=== PATIENT | male | born 1950 | race Caucasian/White ===

== ENCOUNTER 2023-03-10 14:29 | Outpatient (REF) | payer MEDICARE, OTHER, SELFPAY ==
[2023-03-10 16:24] LABS: Appearance Urine Cloudy (Clear); Bilirubin Urine 1+ (Negative); Blood Urine 3+ (Negative); Color Urine Red (Yellow); Glucose Urine Negative (Negative); Ketones Urine Trace (Negative); Leukocyte Esterase Urine 3+ (Negative); Nitrite Urine Positive (Negative); Protein Urine 3+ (Negative); Specific Gravity Urine 1.015 (1.000-1.030); pH Urine 5.5 (5.0-8.5)
[2023-03-10 16:46] LABS: Bacteria Urine Few; RBC Urine >100 (0-2); Squamous Epithelial Cell Urine Few (None-Few); WBC Urine 50-100 (0-5)
== END 2023-03-10 14:30 | disposition home or self-care (01) ==
LOC: NPINS 14:29
PROVIDERS: Visit Provider Nurse Practitioner Gerontology
DX: N39.0 Urinary tract infection, site not specified (principal)
CPT/HCPCS: 81001; 87086

== ENCOUNTER 2023-07-27 12:00 | Outpatient (REF) | payer MEDICARE, SELFPAY ==
[2023-07-27 11:26] LABS: Appearance Urine Cloudy (Clear); Bilirubin Urine Negative (Negative); Blood Urine Trace-intact (Negative); Color Urine Yellow (Yellow); Glucose Urine Negative (Negative); Ketones Urine Negative (Negative); Leukocyte Esterase Urine 3+ (Negative); Nitrite Urine Positive (Negative); Protein Urine Negative (Negative); Specific Gravity Urine 1.015 (1.000-1.030); Urobilinogen Urine 0.2 (0.2-1.0); pH Urine 6.5 (5.0-8.5)
[2023-07-27 11:36] LABS: Bacteria Urine Many; RBC Urine 0-2 (0-2); Squamous Epithelial Cell Urine Few (None-Few); WBC Urine >100 (0-5)
== END 2023-07-27 12:01 | disposition home or self-care (01) ==
LOC: NPINS 12:00
PROVIDERS: Visit Provider Nurse Practitioner Adult Health
DX: R10.2 Pelvic and perineal pain (principal); R82.90 Unspecified abnormal findings in urine; Z87.440 Personal history of urinary (tract) infections
CPT/HCPCS: 81001; 87086; 87186

== ENCOUNTER 2023-08-18 08:23 | Outpatient (REF) | payer MEDICARE, SELFPAY ==
[2023-08-18 09:14] LABS: SARS PCR* Negative SARS-CoV-2 (Negative)
[2023-08-18 11:56] LABS: PCR FLU A Negative PCR FLU A (Negative); PCR FLU B Negative PCR FLU B (Negative); PCR RSV POSITIVE PCR RSV (Negative)
== END 2023-08-18 08:24 | disposition home or self-care (01) ==
LOC: NPINS 08:23
PROVIDERS: PCP Family Medicine; Visit Provider Nurse Practitioner Adult Health
DX: R09.81 Nasal congestion (principal)
CPT/HCPCS: 87631; 87635

== ENCOUNTER 2023-12-09 14:59 | Outpatient (REF) | payer MEDICARE, SELFPAY ==
[2023-12-09 15:12] LABS: Appearance Urine Cloudy (Clear); Bilirubin Urine Negative (Negative); Blood Urine 2+ (Negative); Color Urine Yellow (Yellow); Glucose Urine Negative (Negative); Ketones Urine Negative (Negative); Leukocyte Esterase Urine 2+ (Negative); Nitrite Urine Negative (Negative); Protein Urine 1+ (Negative); Urobilinogen Urine 0.2 (0.2-1.0); pH Urine 5.5 (5.0-8.5)
[2023-12-09 15:28] LABS: WBC Urine >100 (0-5)
[2023-12-09 15:29] LABS: Bacteria Urine Many
== END 2023-12-09 15:00 | disposition home or self-care (01) ==
LOC: NPINS 14:59
PROVIDERS: PCP Family Medicine; Visit Provider Nurse Practitioner Gerontology
DX: N30.01 Acute cystitis with hematuria (principal)
CPT/HCPCS: 81001; 87086; 87186

== ENCOUNTER 2024-01-04 17:51 | Outpatient (REF) | payer MEDICARE, SELFPAY ==
[2024-01-04 18:09] LABS: Appearance Urine Clear (Clear); Bilirubin Urine Negative (Negative); Blood Urine Trace-intact (Negative); Color Urine Yellow (Yellow); Glucose Urine Negative (Negative); Ketones Urine Negative (Negative); Leukocyte Esterase Urine 1+ (Negative); Nitrite Urine Negative (Negative); Protein Urine 1+ (Negative); Urobilinogen Urine 0.2 (0.2-1.0)
[2024-01-04 18:28] LABS: RBC Urine 0-2 (0-2)
[2024-01-04 18:29] LABS: Bacteria Urine Few
== END 2024-01-04 17:52 | disposition home or self-care (01) ==
LOC: NPINS 17:51
PROVIDERS: PCP Family Medicine; Referring Provider Nurse Practitioner Gerontology; Visit Provider Nurse Practitioner Gerontology
DX: Z87.440 Personal history of urinary (tract) infections (principal)
CPT/HCPCS: 81001; 87086; 87186

== ENCOUNTER 2024-08-06 12:07 | Outpatient (REF) | payer MEDICARE, SELFPAY ==
[2024-08-06 12:52] LABS: Appearance Urine Slightly Cloudy (Clear); Bilirubin Urine Negative (Negative); Blood Urine 2+ (Negative); Glucose Urine Negative (Negative); Ketones Urine Negative (Negative); Leukocyte Esterase Urine Trace (Negative); Nitrite Urine Negative (Negative); Protein Urine 1+ (Negative); Urobilinogen Urine 0.2 (0.2-1.0); pH Urine 5.5 (5.0-8.5)
[2024-08-06 13:30] LABS: Bacteria Urine Few; Color Urine Yellow (Yellow); Mucus Urine Few; Squamous Epithelial Cell Urine Few (None-Few)
== END 2024-08-06 12:08 | disposition home or self-care (01) ==
LOC: NPINS 12:07
PROVIDERS: PCP Family Medicine; Visit Provider Nurse Practitioner Gerontology
DX: N39.0 Urinary tract infection, site not specified (principal)
CPT/HCPCS: 81001; 87086; 87186

== ENCOUNTER 2024-08-07 10:44 | Outpatient (CLI) | payer MEDICARE, SELFPAY | END 2024-08-07 10:45 | disposition home or self-care (01) | LOC: AMB 08-22 02:27 | PROVIDERS: PCP Family Medicine; Visit Provider Family Medicine | DX: R10.9 Unspecified abdominal pain (principal) | CPT/HCPCS: A0425; A0427 ==

== ENCOUNTER 2024-08-07 11:11 | Emergency (ER) | payer MEDICARE, SELFPAY ==
[2024-08-07] VITALS (27 sets, daily range): BP systolic 94–152; BP diastolic 46–82; PULSE 68–86; RESP 16–20; TEMP 36.3; O2SAT 80–100
--- NOTE | 2024-08-07 11:43 | CRLHL7_ITS ---
For Patients: As a result of the Century Cures Act, medical imaging exams and procedure reports are released immediately into your electronic medical record. You may view this report before your referring provider. If you have questions, please contact your health care provider. INDICATION: Clinical signs and symptoms of pulmonary embolus. Hypoxia. Pain. COMPARISON: There are no prior studies for comparison TECHNIQUE: : CT examination of the chest was performed with the uneventful intravenous administration of 95 cc of Isovue 370 while thin axial sections were obtained from above the apices of the lungs to the lung bases. The examination was timed as a pulmonary artery angiogram. Please note that all CT scans at this facility use dose modulation, iterative reconstruction, and/or weight-based dosing when appropriate to reduce radiation dose to as low as reasonably achievable. FINDINGS: : HEART and MEDIASTINUM: The heart size is normal. There is no mediastinal or hilar adenopathy or mass. There is no pericardial effusion.There is elevated right heart strain at 1.3. Greater than 0.9 is considered indicative of right heart strain PULMONARY ARTERIAL CIRCULATION: Moderate to large clot burden pulmonary embolus. This mainly involves the lower lobes. There is a central component on the left. No saddle component. LUNGS and PLEURAL SPACES: Basilar opacities probably due to atelectasis. No focal consolidation, infiltrate or mass. No pleural effusion or pneumothorax. VISUALIZED UPPER ABDOMEN: The limited visualized upper abdominal structures appear normal. There is a gallbladder abnormality visible on the abdomen and pelvis CT which is not visible on this portion of the study OSSEOUS STRUCTURES: Age-appropriate appearance. No acute fracture or destructive process. TUBES and LINES: None. I discussed the above findings with Dr. Wooten at 1:10 p.m. on August 07, 2024 IMPRESSION: 1. Moderate to large clot burden pulmonary embolus mainly involving the lower lobes. 2. Bibasilar atelectasis. No pleural effusion or pneumothorax. 3. Evidence of right heart strain. The RV/LV ratio is elevated at 1.3. A measurement of greater than 0.9 is generally considered indicative of right heart strain Please note that all CT scans at this facility use dose modulation, iterative reconstruction, and/or weight-based dosing when appropriate to reduce radiation dose to as low as reasonably achievable. Dictated by Akil Childers MD @ 08/07/2024 1:14:03 PM (Electronically Signed)
--- NOTE | 2024-08-07 11:43 | CRLHL7_ITS ---
For Patients: As a result of the 21st Century Cures Act, medical imaging exams and procedure reports are released immediately into your electronic medical record. You may view this report before your referring provider. If you have questions, please contact your health care provider. INDICATION: Pain COMPARISON: None of the abdomen and pelvis TECHNIQUE: CT examination of the abdomen and pelvis was performed following the uneventful intravenous administration of 95 cc of Isovue 3 7. Thin section axial images were obtained from the lung bases through the pubic symphysis. Oral contrast was not administered. Please note that all CT scans at this facility use dose modulation, iterative reconstruction, and/or weight-based dosing when appropriate to reduce radiation dose to as low as reasonably achievable. FINDINGS: LUNG BASES: Bibasilar atelectasis. Redemonstration of the basilar pulmonary emboli as noted on the contemporaneous chest report. LIVER/BILIARY SYSTEM:Fatty infiltrated liver. There is a non cystic lesion in the right lobe of the liver under the dome of the diaphragm measuring almost 6 centimeters. This is hyperdense and appears to have a peripheral area of enhancement. This may represent a hemangioma though is indeterminate on the current study. Follow-up evaluation by MRI is recommended. There is no biliary ductal dilation.There is significant gallbladder wall thickening and surrounding inflammatory change. No visible stones. The findings are likely due to acute cholecystitis. ADRENALS: Normal KIDNEYS, URETERS and BLADDER:Benign-appearing renal lesions on the right. Small hyperdense lesion in the midpole of the left kidney measuring 1.3 centimeters. This could represent a hyperdense cyst or a small neoplasm. This could also be evaluated at the time of MRI. SPLEEN:Normal appearance. PANCREAS: Appears normal. RETROPERITONEUM and MESENTERY: There is no mass, adenopathy or aortic aneurysm. Vascular calcification GASTROINTESTINAL SYSTEM: There is no evidence of diverticulitis, colitis, mechanical obstruction, or appendicitis. The small bowel as visualized appears normal. PELVIS: No mass, adenopathy or free fluid. OSSEOUS STRUCTURES and ABDOMINAL WALL: There is an age-appropriate appearance of the osseous structures.Small fat containing umbilical hernia OTHER: No free fluid or free air. IMPRESSION: 1. Lung base findings again noted consistent with the pulmonary embolus which was reported in the contemporaneous chest report. 2. Non cystic right lobe hepatic mass measuring 5.5 centimeters. This could represent a hemangioma though the imaging is indeterminate on this study. Follow-up evaluation by MRI is advised at a clinically appropriate time. 3. Distended gallbladder with gallbladder wall thickening, pericholecystic fluid and surrounding inflammatory change consistent with acute cholecystitis. No stones visible. No biliary ductal dilation. 4. Indeterminate lesion in the left kidney measuring 1.3 centimeters. Hyperdense cyst versus neoplasm. This can also be studied at the time of the above recommended MRI. 5. Other incidental nonacute appearing findings as discussed in the body of the report Please note that all CT scans at this facility use dose modulation, iterative reconstruction, and/or weight-based dosing when appropriate to reduce radiation dose to as low as reasonably achievable. Dictated by Akil Childers MD @ 08/07/2024 1:20:05 PM (Electronically Signed)
[2024-08-07 12:00] LABS: Appearance Urine Cloudy (Clear); Bilirubin Urine 1+ (Negative); Blood Urine 3+ (Negative); Color Urine Dark yellow (Yellow); Glucose Urine Negative (Negative); Ketones Urine Negative (Negative); Leukocyte Esterase Urine Trace (Negative); Nitrite Urine Positive (Negative); Protein Urine 2+ (Negative); Specific Gravity Urine 1.025 (1.000-1.030); pH Urine 5.5 (5.0-8.5)
[2024-08-07 12:08] LABS: HCO3 VBG 28 mmol/L (21-28); PCO2 VBG 45 mmHG (40-50); PO2 VBG 32.2 mmHG (25-47); pH VBG 7.4 (7.32-7.43)
[2024-08-07 12:09] LABS: Troponin, Point-of-Care* 0.02 ng/ml (0.01-0.04)
[2024-08-07 12:09] LABS: Creatinine, Point-of-Care* 1.5 mg/dl (0.6-1.3)
[2024-08-07 12:09] LABS: Lactate Sepsis w/Reflex* 1.6 mmol/L (0.5-1.9)
[2024-08-07 12:11] LABS: Basophils Percent Auto 0.1 % (0.0-3.0); Eosinophils Percent Auto 0.4 % (0.0-7.0); Immature Granulocytes Pct Auto 0.2 %; Mean Corpuscular HGB Conc 32 gm/dL (32-36); Mean Corpuscular Hemoglobin 28 pg (26-34); Mean Corpuscular Volume 89 fL (80-100); Monocytes Percent Auto 7.8 % (0.0-11.0); Neutrophils Percent Auto 84.5 % (42.0-72.0); Platelet Count* 178 K/uL (140-440); RDW Coefficient of Variation % 15.9 % (11.5-15.5); Red Blood Count 4.59 m/uL (4.30-5.90); White Blood Count* 18.47 K/uL (4.50-11.00)
[2024-08-07 12:15] LABS: PCR FLU A Negative PCR FLU A (Negative); PCR FLU B Negative PCR FLU B (Negative); PCR RSV Negative PCR RSV (Negative); SARS PCR* Negative SARS-CoV-2 (Negative)
[2024-08-07 12:19] LABS: Slide Review Reflex No
[2024-08-07 12:20] LABS: Albumin* 3.8 g/dL (3.3-5.0); Chloride* 102 mmol/L (96-114)
--- NOTE | 2024-08-07 12:20 | ED_ITS ---
HPI - General Adult General Date Seen: 08/07/24 Chief complaint: Abdominal Pain Stated complaint: Abdominal pain Time Seen by Provider: 08/07/24 11:13 History of Present Illness HPI narrative: Patient is a 74-year-old male with underlying MS, paraplegia, chronic indwelling catheter, resident of [facility]. Sent in today because of abdominal pain. He has not had a bowel movement reportedly for 3 or 4 days, he says that this is not significantly uncommon for him but usually he will have a bowel movement after about 3 days. He says he developed right lower quadrant pain yesterday after eating some pretzels, which has persisted. He denies nausea or vomiting. Has not had much of an appetite since then. He denies fevers. A UA was apparently done at [facility] yesterday, results unknown. He says that he has not had significant problems with UTI however. He denies prior abdominal surgeries. He was noted to be hypoxic on medics arrival, with O2 sats recorded at 80% on room air. He denies chronic oxygen needs, denies respiratory symptoms, chest pain, unusual leg swelling, prior DVT. Related Data Home Medications ?Medication ?Instructions ?Recorded ?Confirmed acetaminophen 500 mg tablet PO 08/07/24 aspirin 81 mg tablet,delayed 81 mg PO DAILY 08/07/24 08/07/24 release atorvastatin 40 mg tablet 40 mg PO DAILY 08/07/24 08/07/24 baclofen 20 mg tablet PO 08/07/24 calcium carbonate (Zachary-Gest 400 mg PO BID 08/07/24 08/07/24 Antacid) cholecalciferol (vitamin D3) 25 25 mcg PO DAILY 08/07/24 08/07/24 mcg (1,000 unit) tablet (Vitamin D3) clotrimazole 1 % topical cream applic topical 08/07/24 (Antifungal (clotrimazole)) furosemide 40 mg tablet PO 08/07/24 guaifenesin 600 mg tablet, mg PO 08/07/24 extended release 12 hr (Mucus Relief ER) lisinopril 40 mg tablet 40 mg PO DAILY 08/07/24 08/07/24 metoprolol succinate 100 mg 100 mg PO DAILY 08/07/24 08/07/24 tablet,extended release 24 hr nifedipine 90 mg tablet,extended 90 mg PO DAILY 08/07/24 08/07/24 release 24 hr pantoprazole 40 mg tablet,delayed 40 mg PO BID 08/07/24 08/07/24 release polyethylene glycol 3350 17 17 g PO DAILY 08/07/24 08/07/24 gram/dose oral powder potassium chloride 10 mEq 1 PO BID 08/07/24 capsule,extended release simethicone 80 mg chewable tablet 80 mg PO DAILY 08/07/24 08/07/24 (Gas Relief 80 (simethicone)) Allergies Allergy/AdvReac Type Severity Reaction Status Date / Time Haemophilus B polysaccharide Allergy Unknown Verified 08/07/24 14:59 conj w vancomycin Allergy Unknown Verified 08/07/24 14:59 Review of Systems Status of ROS: Reports: 10 or more systems reviewed and unremarkable except as noted in History and below PFSH [facility] Social History Smoking Status: Unknown if ever smoked Non-prescribed substance use: denies use Exam Narrative: Exam Narrative: Vital signs reviewed In general, alert, nontoxic elderly male. He was on oxygen at the time of my exam was breathing easily. Head: Normocephalic, atraumatic. Eyes: Sclera clear. Pupils equal and reactive. ENT: Mucous membranes moist. Neck: Supple without adenopathy. Heart: Regular rate and rhythm without murmur. Lungs: Clear anteriorly. No increased work of breathing. Abdomen: Soft, obese. He does seem to have some right lower quadrant tenderness with a little bit of guarding. Remainder the abdomen is nontender. No rigidity or rebound tenderness. Extremities: Legs are well perfused. He has compression stockings on, does not seem to have significant edema, no calf tenderness. Neurologic: Alert, conversant. Speech fluent, face symmetric. Skin: Warm, dry well perfused. Affect: Normal. Const: Vital Signs, click to edit/add: Vital Signs - 24 hr 08/07/24 11:13 08/07/24 11:43 08/07/24 12:09 Temperature 97.3 F L Pulse Rate 74 Pulse Rate [Pulse Oximeter] 76 Respiratory Rate 16 20 Blood Pressure 120/53 L Blood Pressure [Ri ght Upper Arm] 111/52 L Pulse Oximetry 80 L 92 93 Oxygen Delivery Me thod Room Air OxyMask OxyMask Oxygen Flow Rate 5 5 08/07/24 12:32 08/07/24 13:03 08/07/24 13:32 Temperature Pulse Rate 75 75 68 Pulse Rate [Pulse Oximeter] Respiratory Rate 20 Blood Pressure 122/54 L 112/51 L 123/59 L Blood Pressure [Ri ght Upper Arm] Pulse Oximetry 93 93 96 Oxygen Delivery Me thod OxyMask OxyMask OxyMask Oxygen Flow Rate 5 5 5 08/07/24 14:01 08/07/24 14:32 08/07/24 15:01 Temperature Pulse Rate 71 74 72 Pulse Rate [Pulse Oximeter] Respiratory Rate Blood Pressure 127/50 L 140/54 H 130/50 L Blood Pressure [Ri ght Upper Arm] Pulse Oximetry 95 95 95 Oxygen Delivery Me thod OxyMask OxyMask OxyMask Oxygen Flow Rate 5 5 5 08/07/24 15:32 08/07/24 16:02 08/07/24 16:32 Temperature Pulse Rate 75 73 72 Pulse Rate [Pulse Oximeter] Respiratory Rate Blood Pressure 119/49 L 94/47 L 94/67 Blood Pressure [Ri ght Upper Arm] Pulse Oximetry 95 94 95 Oxygen Delivery Me thod OxyMask OxyMask Oxygen Flow Rate 5 5 08/07/24 17:02 08/07/24 17:31 08/07/24 18:16 Temperature Pulse Rate 70 74 80 Pulse Rate [Pulse Oximeter] Respiratory Rate 20 20 Blood Pressure 112/46 L 115/52 L 107/57 L Blood Pressure [Ri ght Upper Arm] Pulse Oximetry 99 100 92 Oxygen Delivery Me thod OxyMask Oxygen Flow Rate 5 08/07/24 18:32 08/07/24 19:01 08/07/24 19:30 Temperature Pulse Rate 80 77 80 Pulse Rate [Pulse Oximeter] Respiratory Rate 20 Blood Pressure 123/57 L 125/48 L Blood Pressure [Ri ght Upper Arm] Pulse Oximetry 96 93 93 Oxygen Delivery Me thod OxyMask OxyMask OxyMask Oxygen Flow Rate 5 5 5 08/07/24 19:32 08/07/24 20:32 08/07/24 21:02 Temperature Pulse Rate Pulse Rate [Pulse Oximeter] Respiratory Rate Blood Pressure 136/80 130/76 148/82 H Blood Pressure [Ri ght Upper Arm] Pulse Oximetry Oxygen Delivery Me thod Oxygen Flow Rate 08/07/24 21:30 08/07/24 21:32 08/07/24 22:00 Temperature Pulse Rate 82 85 84 Pulse Rate [Pulse Oximeter] Respiratory Rate Blood Pressure 152/76 H Blood Pressure [Ri ght Upper Arm] Pulse Oximetry 93 94 91 Oxygen Delivery Me thod OxyMask OxyMask Nasal Cannula Oxygen Flow Rate 5 5 4 08/07/24 22:01 08/07/24 22:31 08/07/24 23:02 Temperature Pulse Rate 84 83 86 Pulse Rate [Pulse Oximeter] Respiratory Rate 20 18 Blood Pressure 126/56 L 118/55 L 127/66 Blood Pressure [Ri ght Upper Arm] Pulse Oximetry 91 92 92 Oxygen Delivery Me thod Nasal Cannula Nasal Cannula Nasal Cannula Oxygen Flow Rate 4 4 4 Course Course ED Course: Patient presents with abdominal pain, hypoxia of uncertain significance within absence of respiratory or other chest symptoms. Certainly at risk for PE with his paraplegia. I have ordered CT scans of the chest, abdomen pelvis. Diagnostic considerations in the chest would include pneumonia, pulmonary embolism, congestive heart failure, pleural effusion, viral infection among others. In the abdomen, he has right lower abdominal tenderness, seems relatively unlikely to be related to his hypoxia although pneumonia would remain a consideration. Other considerations are appendicitis, cholecystitis, pancreatitis, diverticulitis, bowel obstruction, ischemic bowel, UTI, pyelonephritis, kidney stone among others. He declines pain medication right now. Labs and urine pending as well. Labs notable for white blood cell count of 18.5, hemoglobin of 13. Normal melanie telets. Venous gas is normal, pH is 7.4. Metabolic panel unremarkable, BUN 20, creatinine 1.3, GFR of 58. Lactate is normal at 1.6. Liver functions are normal peer CRP is significant elevated at 35.5. BNP is equivocal at 605, lipase normal. Urinalysis shows positive nitrites, 5-10 red cells, 25-50 white blood cells. Many bacteria. Viral swab is negative. Point of care troponin is 0.02. An EKG done here showed a sinus rhythm, ventricular rate of 71. No evidence of S1 Q3 T3, no acute ST segment changes. Unremarkable T-waves. He went on to have CT scans of the chest, PE protocol, as well as CT of the abdomen and pelvis with contrast. By my review he has bilateral PE in the chest. Radiology read discussed initially on phone and then reviewed online. Moderate to large clot burden mainly involving the lower lobes, no pleural effusion normal pneumothorax, evidence of right heart strain with an RV to LV ratio of 1.3. In the abdomen, he has a lesion on the dome of the liver by my review, he has a dilated gallbladder with wall thickening and some pericholecystic stranding. I do not see any findings in the right lower quadrant. Finalread again discussed on the phone and then reviewed online cholecystitis without obvious gallstones, gallbladder wall thickening pericholecystic fluid and surrounding inflammatory change. No ductal dilation. Liver labs do not suggest choledocholithiasis. He has an indeterminate lesion on the left kidney hyperdense cyst versus neoplasm. He has this liver lesion that could be a hemangioma but imaging is indeterminate, MRI recommended when clinically appropriate. I discussed his case with the footwear sales representative at [place] in terms of anticoagulation for the pulmonary embolism. He has some high risk features but overall nothing pushing us to do thrombolysis, and in the setting of this unknown liver lesion, his recommendation was heparin at this time. This has been ordered. With regard to the cholecystitis, I discussed his care with our general surgeon. She said that he would be best served by going somewhere where a cystoscopy tube could be placed. We are making calls to try and find a bed somewhere for transfer. In the meantime, he has had Zosyn, 3.375 g IV. He remains hemodynamically stable, O2 sats low to mid 90s on 5 L OxyMask. Bilateral lower extremity Dopplers are pending at this time. Bilateral lower extremity Dopplers read by Radiology showing small volumes of clot in both calves. Patient has been hemodynamically stable. He remains on 5 L by OxyMask, O2 sats were somewhat higher but have drifted back down to 93% on 5 L so I have left him there. I was able to speak with the hospitalist at [facility], as well as the interventional radiologist there. They are able to take him for admission to their hospital. Case was discussed with General surgery as well by the call center but not by myself. They were unable to view images for some reason despite multiple attempts to send them. He remains on heparin drip. He was given his 1st dose of Zosyn at 4:00 p.m., 2nd dose will be ordered for 10:00 p.m. if he is still here. We are currently waiting bed placement at [facility]. I spoke with his daughter, Malika, phone number [phone] and have updated her on his status. Vital Signs Vital signs: Initial Vital Signs Temperature 97.3 F L 08/07/24 11:13 Temperature Source Temporal Artery Scan 08/07/24 11:13 Pulse Rate 76 08/07/24 11:13 Respiratory Rate 16 08/07/24 11:13 Blood Pressure 111/52 L 08/07/24 11:13 Blood Pressure Mean 71 08/07/24 11:13 Blood Pressure Position Supine 08/07/24 11:13 Pulse Oximetry 80 L 08/07/24 11:13 Oxygen Delivery Method Room Air 08/07/24 11:13 Vital Signs Temperature 97.3 F L 08/07/24 11:13 Pulse Rate 76 08/07/24 11:13 Respiratory Rate 16 08/07/24 11:13 Blood Pressure 111/52 L 08/07/24 11:13 Pulse Oximetry 80 L 08/07/24 11:13 Oxygen Delivery Method Room Air 08/07/24 11:13 Temperature 97.3 F L 08/07/24 11:13 Pulse Rate 86 08/07/24 23:02 Respiratory Rate 18 08/07/24 23:02 Blood Pressure 127/66 08/07/24 23:02 Pulse Oximetry 92 08/07/24 23:02 Oxygen Delivery Method Nasal Cannula 08/07/24 23:02 Oxygen Flow Rate 4 08/07/24 23:02 Medications Administered Medications: Generic Name Dose Route Start Last Admin Trade Name Freq PRN Reason Stop Dose Admin Heparin Sodium/Dextrose 25,000 unit in 500 mls @ 0 mls/hr 08/07/24 14:00 08/07/24 21:59 Heparin IV 1,250 unit/hr .Q0M BERONICA 25 mls/hr Titration Protocol Per Protocol Piperacillin Sod/Tazobactam 100 mls @ 100 mls/hr 08/07/24 22:57 08/07/24 23:05 Sod 3.375 gm/ Sodium Chloride IVPB 08/07/24 22:58 100 mls/hr ONCE ONE Administration Discontinued Medications Generic Name Dose Route Start Last Admin Trade Name Freq PRN Reason Stop Dose Admin Heparin Sodium (Porcine) 9,500 unit 08/07/24 13:52 08/07/24 14:10 Heparin 5,000 Unit/0.5 Ml Inj 80 unit/kg (9500 unit) 08/07/24 13:53 9,500 unit IVP Administration ONCE ONE Piperacillin Sod/Tazobactam 100 mls @ 100 mls/hr 08/07/24 14:01 08/07/24 16:00 Sod 3.375 gm/ Sodium Chloride IVPB 08/07/24 14:02 Infused ONCE ONE Infusion Medical Decision Making Lab Data Labs: Lab Results 08/07/24 08/07/24 08/07/24 Range/Units 11:25 11:30 11:45 WBC 18.47 H (4.50-11.00) K/uL RBC 4.59 (4.30-5.90) m/uL Hgb 13.0 L (13.5-17.5) gm/dL Hct 41.0 (37.0-53.0) % MCV 89 (80-100) fL MCH 28 (26-34) pg MCHC 32 (32-36) gm/dL RDW Coeff of Rey 15.9 H (11.5-15.5) % Plt Count 178 (140-440) K/uL Neut % (Auto) 84.5 H (42.0-72.0) % Lymph % (Auto) 7.0 L (20-44) % Williams % (Auto) 7.8 (0.0-11.0) % Eos % (Auto) 0.4 (0.0-7.0) % Baso % (Auto) 0.1 (0.0-3.0) % Neut # (Auto) 15.60 H (1.7-7.0) K/uL Lymph # (Auto) 1.30 (0.90-2.90) K/uL Williams # (Auto) 1.40 H (0.00-0.90) K/UL Eos # (Auto) 0.10 (0.00-0.50) K/uL Baso # (Auto) 0.00 (0.00-0.30) K/uL Abs Immat Gran (auto) 0.00 (0.00-0.30) K/uL Imm/Tot Granulo (auto) 0.2 % INR 1.09 (0.91-1.10) APTT 43 H (23-33) Seconds VBG pH 7.4 (7.32-7.43) VBG pCO2 45 (40-50) mmHG VBG pO2 32.2 (25-47) mmHG VBG HCO3 28 (21-28) mmol/L Sodium 136 (135-149) mmol/L Potassium 4.5 (3.6-5.1) mmol/L Chloride 102 (96-114) mmol/L Carbon Dioxide 29 (20-32) mmol/L Anion Gap 5 L (7-15) mEq/L BUN 20 (7-30) mg/dL Creatinine 1.3 (0.5-1.5) mg/dL Estimated GFR 58 ml/min Glucose 158 H (60-115) mg/dL Lactate 1.6 (0.5-1.9) mmol/L Calcium 9.0 (8.4-10.6) mg/dL Total Bilirubin 1.1 (0.1-1.5) mg/dL Direct Bilirubin 0.5 (0.0-0.5) mg/dL AST 23 (12-35) U/L ALT 23 (4-50) U/L Alkaline Phosphatase 100 (40-150) U/L C-Reactive Protein 35.5 H (0.5-1.0) mg/dL NT-Pro-B Natriuret Pep 605 pg/mL Total Protein 6.7 (6.0-8.3) g/dL Albumin 3.8 (3.3-5.0) g/dL Lipase 29 (23-300) U/L Urine Color (Yellow) Urine Appearance (Clear) Urine pH (5.0-8.5) Ur Specific Wharton (1.000-1.030) Urine Protein (Negative) Urine Glucose (UA) (Negative) Urine Ketones (Negative) Urine Blood (Negative) Urine Nitrite (Negative) Urine Bilirubin (Negative) Urine Urobilinogen (0.2-1.0) Ur Leukocyte Esterase (Negative) Urine RBC (0-2) Urine WBC (0-5) Urine WBC Clumps (None) Ur Squamous Epith Cells (None-Few) Urine Bacteria (None) SARS-CoV-2 (PCR) Negative SARS-CoV-2 (Negative) Influenza Type A (PCR) Negative PCR FLU A (Negative) Influenza Type B (PCR) Negative PCR FLU B (Negative) RSV (PCR) Negative PCR RSV (Negative) POC Creatinine (0.6-1.3) mg/dl POC Troponin I 0.02 (0.01-0.04) ng/ml 08/07/24 08/07/24 08/07/24 Range/Units 11:53 20:05 Unknown WBC (4.50-11.00) K/uL RBC (4.30-5.90) m/uL Hgb (13.5-17.5) gm/dL Hct (37.0-53.0) % MCV (80-100) fL MCH (26-34) pg MCHC (32-36) gm/dL RDW Coeff of Rey (11.5-15.5) % Plt Count (140-440) K/uL Neut % (Auto) (42.0-72.0) % Lymph % (Auto) (20-44) % Williams % (Auto) (0.0-11.0) % Eos % (Auto) (0.0-7.0) % Baso % (Auto) (0.0-3.0) % Neut # (Auto) (1.7-7.0) K/uL Lymph # (Auto) (0.90-2.90) K/uL Williams # (Auto) (0.00-0.90) K/UL Eos # (Auto) (0.00-0.50) K/uL Baso # (Auto) (0.00-0.30) K/uL Abs Immat Gran (auto) (0.00-0.30) K/uL Imm/Tot Granulo (auto) % INR (0.91-1.10) APTT 83 H (23-33) Seconds VBG pH (7.32-7.43) VBG pCO2 (40-50) mmHG VBG pO2 (25-47) mmHG VBG HCO3 (21-28) mmol/L Sodium (135-149) mmol/L Potassium (3.6-5.1) mmol/L Chloride (96-114) mmol/L Carbon Dioxide (20-32) mmol/L Anion Gap (7-15) mEq/L BUN (7-30) mg/dL Creatinine (0.5-1.5) mg/dL Estimated GFR ml/min Glucose (60-115) mg/dL Lactate (0.5-1.9) mmol/L Calcium (8.4-10.6) mg/dL Total Bilirubin (0.1-1.5) mg/dL Direct Bilirubin (0.0-0.5) mg/dL AST (12-35) U/L ALT (4-50) U/L Alkaline Phosphatase (40-150) U/L C-Reactive Protein (0.5-1.0) mg/dL NT-Pro-B Natriuret Pep pg/mL Total Protein (6.0-8.3) g/dL Albumin (3.3-5.0) g/dL Lipase (23-300) U/L Urine Color Dark yellow (Yellow) Urine Appearance Cloudy A (Clear) Urine pH 5.5 (5.0-8.5) Ur Specific Wharton 1.025 (1.000-1.030) Urine Protein 2+ A (Negative) Urine Glucose (UA) Negative (Negative) Urine Ketones Negative (Negative) Urine Blood 3+ A (Negative) Urine Nitrite Positive A (Negative) Urine Bilirubin 1+ A (Negative) Urine Urobilinogen 1.0 (0.2-1.0) Ur Leukocyte Esterase Trace A (Negative) Urine RBC 5-10 A (0-2) Urine WBC 25-50 A (0-5) Urine WBC Clumps Moderate A (None) Ur Squamous Epith Cells Few (None-Few) Urine Bacteria Many A (None) SARS-CoV-2 (PCR) (Negative) Influenza Type A (PCR) (Negative) Influenza Type B (PCR) (Negative) RSV (PCR) (Negative) POC Creatinine 1.5 H (0.6-1.3) mg/dl POC Troponin I (0.01-0.04) ng/ml Imaging Data CT scan - chest: Attestation: I have reviewed the pertinent imaging results. Radiologist's impression: Patient: WILFREDO HE Facility: [facility] Site . Site : 1950 Study: CT-Chest Angio W/ [facility] ISOVUE-370 PE PROTOCOL-08/07/2024 12:58:23 PM Ordering Physician: Sugar Simmons Final Report: INDICATION: Clinical signs and symptoms of pulmonary embolus. Hypoxia. Pain. COMPARISON: There are no prior studies for comparison TECHNIQUE: : CT examination of the chest was performed with the uneventful intravenous administration of 95 cc of Isovue 370 while thin axial sections were obtained from above the apices of the lungs to the lung bases. The examination was timed as a pulmonary artery angiogram. Please note that all CT scans at this facility use dose modulation, iterative reconstruction, and/or weight-based dosing when appropriate to reduce radiation dose to as low as reasonably achievable. FINDINGS: : HEART and MEDIASTINUM: The heart size is normal. There is no mediastinal or hilar adenopathy or mass. There is no pericardial effusion.There is elevated right heart strain at 1.3. Greater than 0.9 is considered indicative of right heart strain PULMONARY ARTERIAL CIRCULATION: Moderate to large clot burden pulmonary embolus. This mainly involves the lower lobes. There is a central component on the left. No saddle component. LUNGS and PLEURAL SPACES: Basilar opacities probably due to atelectasis. No focal consolidation, infiltrate or mass. No pleural effusion or pneumothorax. VISUALIZED UPPER ABDOMEN: The limited visualized upper abdominal structures appear normal. There is a gallbladder abnormality visible on the abdomen and pelvis CT which is not visible on this portion of the study OSSEOUS STRUCTURES: Age-appropriate appearance. No acute fracture or destructive process. TUBES and LINES: None. I discussed the above findings with Dr. Acotsa at 1:10 p.m. on August 07, 2024 IMPRESSION: 1. Moderate to large clot burden pulmonary embolus mainly involving the lower lobes. 2. Bibasilar atelectasis. No pleural effusion or pneumothorax. 3. Evidence of right heart strain. The RV/LV ratio is elevated at 1.3. A measurement of greater than 0.9 is generally considered indicative of right heart strain Please note that all CT scans at this facility use dose modulation, iterative reconstruction, and/or weight-based dosing when appropriate to reduce radiation dose to as low as reasonably achievable. CT scan - abdomen: Attestation: I have reviewed the pertinent imaging results. Radiologist's impression: Patient: WILFREDO HE Facility: [facility] . Site : 1950 Study: CT-Abdomen/Pelvis W/ 95CC [id number] 1:02:08 PM Ordering Physician: Block Iris Final Report: INDICATION: Pain COMPARISON: None of the abdomen and pelvis TECHNIQUE: CT examination of the abdomen and pelvis was performed following the uneventful intravenous administration of 95 cc of Isovue 3 7. Thin section axial images were obtained from the lung bases through the pubic symphysis. Oral contrast was not administered. Please note that all CT scans at this facility use dose modulation, iterative reconstruction, and/or weight-based dosing when appropriate to reduce radiation dose to as low as reasonably achievable. FINDINGS: LUNG BASES: Bibasilar atelectasis. Redemonstration of the basilar pulmonary emboli as noted on the contemporaneous chest report. LIVER/BILIARY SYSTEM:Fatty infiltrated liver. There is a non cystic lesion in the right lobe of the liver under the dome of the diaphragm measuring almost 6 centimeters. This is hyperdense and appears to have a peripheral area of enhancement. This may represent a hemangioma though is indeterminate on the current study. Follow-up evaluation by MRI is recommended. There is no biliary ductal dilation.There is significant gallbladder wall thickening and surrounding inflammatory change. No visible stones. The findings are likely due to acute cholecystitis. ADRENALS: Normal KIDNEYS, URETERS and BLADDER:Benign-appearing renal lesions on the right. Small hyperdense lesion in the midpole of the left kidney measuring 1.3 centimeters. This could represent a hyperdense cyst or a small neoplasm. This could also be evaluated at the time of MRI. SPLEEN:Normal appearance. PANCREAS: Appears normal. RETROPERITONEUM and MESENTERY: There is no mass, adenopathy or aortic aneurysm. Vascular calcification GASTROINTESTINAL SYSTEM: There is no evidence of diverticulitis, colitis, mechanical obstruction, or appendicitis. The small bowel as visualized appears normal. PELVIS: No mass, adenopathy or free fluid. OSSEOUS STRUCTURES and ABDOMINAL WALL: There is an age-appropriate appearance of the osseous structures.Small fat containing umbilical hernia OTHER: No free fluid or free air. IMPRESSION: 1. Lung base findings again noted consistent with the pulmonary embolus which was reported in the contemporaneous chest report. 2. Non cystic right lobe hepatic mass measuring 5.5 centimeters. This could represent a hemangioma though the imaging is indeterminate on this study. Follow-up evaluation by MRI is advised at a clinically appropriate time. 3. Distended gallbladder with gallbladder wall thickening, pericholecystic fluid and surrounding inflammatory change consistent with acute cholecystitis. No stones visible. No biliary ductal dilation. 4. Indeterminate lesion in the left kidney measuring 1.3 centimeters. Hyperdense cyst versus neoplasm. This can also be studied at the time of the above recommended MRI. 5. Other incidental nonacute appearing findings as discussed in the body of the report Please note that all CT scans at this facility use dose modulation, iterative reconstruction, and/or weight-based dosing when appropriate to reduce radiation dose to as low as reasonably achievable. Dictated by Akil Childers MD @ 08/07/2024 1:20:05 PM Venous US: Attestation: I have reviewed the pertinent imaging results. Radiologist's impression: Patient: Wilfredo He MR#: [id number] : 1950 Acct:[id number] Loc: ED Service Date: 08/07/[address]: Ordering Physician: Iris Acosta M.D. Date of Service: 08/07/24 Procedure(s): US venous LE BI Accession Number(s): [id number] cc: Iris Acosta M.D.; Bijan Crawford M.D.~ For Patients: As a result of the Cures Act, medical imaging exams and procedure reports are released immediately into your electronic medical record. You may view this report before your referring provider. If you have questions, please contact your health care provider. INDICATION: Pulmonary emboli. TECHNIQUE: : Ultrasound venous duplex lower extremity bilateral. Compression venous exam was performed using moeller-scale, color Doppler, and spectral Doppler imaging. COMPARISON: None. FINDINGS: Deep venous thrombosis are present in 1 of 2 paired posterior tibial veins in the right calf and 1 of 2 peroneal veins in the left calf. Proximally both popliteal, femoral, deep femoral and common femoral veins are patent as are both greater saphenous veins. IMPRESSION: Bilateral calf DVT in the right posterior and left peroneal veins Findings called to and discussed with Dr. Iris acosta at 14:55. Dictated by Jorge Deluna MD @ 08/07/2024 2:57:06 PM Discharge Plan Discharge Clinical Impression: Bilateral pulmonary embolism, DVT of lower extremity, bilateral, Acute cholecystitis, Lesion of liver Patient Disposition: Xfer Other Prescriptions: No Action furosemide 40 mg tablet PO atorvastatin 40 mg tablet 40 mg PO DAILY potassium chloride 10 mEq capsule, extended release 1 PO BID metoprolol succinate 100 mg tablet extended release 24 hr 100 mg PO DAILY aspirin 81 mg tablet,delayed release (DR/EC) 81 mg PO DAILY acetaminophen 500 mg tablet PO baclofen 20 mg tablet PO nifedipine 90 mg tablet extended release 24hr 90 mg PO DAILY pantoprazole 40 mg tablet,delayed release (DR/EC) 40 mg PO BID calcium carbonate [Zachary-Gest Antacid] 200 mg calcium (500 mg) tablet,chewable 400 mg PO BID polyethylene glycol 3350 17 gram/dose powder 17 g PO DAILY lisinopril 40 mg tablet 40 mg PO DAILY clotrimazole [Antifungal (clotrimazole)] 1 % cream topical simethicone [Gas Relief 80 (simethicone)] 80 mg tablet,chewable 80 mg PO DAILY cholecalciferol (vitamin D3) [Vitamin D3] 25 mcg (1,000 unit) tablet 25 mcg PO DAILY guaifenesin [Mucus Relief ER] 600 mg tablet extended release 12hr PO Stand Alone Forms: [facility] Info Instructions
[2024-08-07 12:21] LABS: Potassium* 4.5 mmol/L (3.6-5.1); Sodium* 136 mmol/L (135-149)
[2024-08-07 12:21] LABS: Bacteria Urine Many; Squamous Epithelial Cell Urine Few (None-Few); WBC Urine 25-50 (0-5)
[2024-08-07 12:22] LABS: WBC Clumps Urine Moderate
[2024-08-07 12:23] LABS: Creatinine* 1.3 mg/dL (0.5-1.5); Estimated Glomerular Filt Rate 58 ml/min
[2024-08-07 12:24] LABS: Alanine Aminotransferase* 23 U/L (4-50); Alkaline Phosphatase* 100 U/L (40-150); Anion Gap 5 mEq/L (7-15); Aspartate Amino Transferase* 23 U/L (12-35); Bilirubin Direct* 0.5 mg/dL (0.0-0.5); Bilirubin Total* 1.1 mg/dL (0.1-1.5); Blood Urea Nitrogen* 20 mg/dL (7-30); Carbon Dioxide* 29 mmol/L (20-32); Glucose* 158 mg/dL (60-115); Lipase* 29 U/L (23-300); Total Protein* 6.7 g/dL (6.0-8.3)
[2024-08-07 12:35] LABS: NT Pro B Type NatriureticPept* 605 pg/mL
--- NOTE | 2024-08-07 12:55 | RESP.RT ---
Asked to see pt for oxygenation concerns. PT slightly hypoxic. With disease process he does not have good inhalation. With his current pain he is unable to take a deep breath. He is not short of breath. He says he can not tell any difference with oxygen on. BBS very diminished in bases, clear in upper lobes. Has a CPAP which he wears at will, no regularity .
[2024-08-07 13:00] LABS: C Reactive Protein* 35.5 mg/dL (0.5-1.0)
--- NOTE | 2024-08-07 13:29 | CRLHL7_ITS ---
For Patients: As a result of the Century Cures Act, medical imaging exams and procedure reports are released immediately into your electronic medical record. You may view this report before your referring provider. If you have questions, please contact your health care provider. INDICATION: Pulmonary emboli. TECHNIQUE: : Ultrasound venous duplex lower extremity bilateral. Compression venous exam was performed using moeller-scale, color Doppler, and spectral Doppler imaging. COMPARISON: None. FINDINGS: Deep venous thrombosis are present in 1 of 2 paired posterior tibial veins in the right calf and 1 of 2 peroneal veins in the left calf. Proximally both popliteal, femoral, deep femoral and common femoral veins are patent as are both greater saphenous veins. IMPRESSION: Bilateral calf DVT in the right posterior and left peroneal veins Findings called to and discussed with Dr. Iris acosta at 14:55. Dictated by Jorge Deluna MD @ 08/07/2024 2:57:06 PM (Electronically Signed)
[2024-08-07] MEDS: HEPARIN 5,000 UNIT/0.5 ML INJ 9500 UNIT IVP (14:10)
[2024-08-07] MEDS: HEPARIN 25,000 UNIT/500 ML BAG 30 UNIT IV (14:12)
[2024-08-07 14:23] LABS: INR 1.09 (0.91-1.10); Prothrombin Time 14.8 Seconds
[2024-08-07 14:24] LABS: Partial Thromboplastin Time* 43 Seconds (23-33)
[2024-08-07] MEDS: PIPERACILLIN/TAZOBACTAM 3.375 GM in 0.9 % SODIUM CHLORIDE Mini-bag 100 ML IVPB ×2 (15:09→23:05)
[2024-08-07 20:47] LABS: Partial Thromboplastin Time* 83 Seconds (23-33)
== END 2024-08-07 23:22 | disposition other institution (70) ==
PROVIDERS: Emergency Provider Emergency Medicine; PCP Family Medicine
DX: I26.99 Other pulmonary embolism without acute cor pulmonale (principal); I82.403 Acute embolism and thrombosis of unspecified deep veins of lower extremity, bilateral; K81.0 Acute cholecystitis
CPT/HCPCS: 36415; 71275; 74177; 80048; 80076; 81001; 82565; 82803; 83605; 83690; 83880; 84484; 85025; 85027; 85610; 85730; 86140; 87086; 87186; 87631; 93005; 93970; 96365; 96366; 99285; 99291; A0425; A0434; J1644; J2543; Q9967

== ENCOUNTER 2024-08-20 10:53 | Outpatient (CLI) | payer MEDICARE, SELFPAY | END 2024-08-20 10:54 | disposition home or self-care (01) | LOC: AMB 09-03 04:29 | PROVIDERS: PCP Family Medicine; Visit Provider Emergency Medicine | DX: R41.82 Altered mental status, unspecified (principal); R53.1 Weakness | CPT/HCPCS: A0425; A0427 ==

== ENCOUNTER 2024-08-20 11:18 | Emergency (ER) | payer MEDICARE, SELFPAY ==
[2024-08-20] VITALS (18 sets, daily range): BP systolic 128–146; BP diastolic 57–63; PULSE 60–68; RESP 20; TEMP 36.6; O2SAT 93–96
--- NOTE | 2024-08-20 11:46 | ED.GENADULT ---
HPI - General Adult General Time Seen by Provider: 11:46 Date Seen: 08/20/24 Chief complaint: Extremity Pain/Injury, Upper Stated complaint: Weakness Time Seen by Provider: 08/20/24 11:40 Source: patient, EMS and RN notes reviewed Mode of arrival: EMS Limitations: no limitations History of Present Illness HPI narrative: This 74-year-old male is sent by the [facility] for concern of right wrist pain. He was reported to not want to be using his right hand today, nursing staff became concerned of a stroke. Patient states he could not use his right hand because it hurt to do so. He could not hold his coffee cup during breakfast because of pain in his wrist. He has not noted fevers. The right wrist swelling and pain seem to have cropped up overnight. He denies trauma but does note that he had multiple IV starts in this hand when he was in the hospital at [place]. He currently has an indwelling Eason catheter, has a cholecystostomy tube. He denies any numbness tingling. Patient has had a significant complex history, did review multiple outside records. He was diagnosed with bilateral pulmonary emboli and DVTs here on August 07 his C reactive protein was 35.5. There were concerns for acute cholecystitis on his images. He ended up being transferred to [place]. We have looked through his records, he was to be on outpatient Keflex, he was supposed to be on Eliquis. We do not see Eliquis on his current medication reconciliation from them. Both nursing staff and myself have looked through records. Patient notes no current fevers, no abdominal pain. No lower extremity pain. He does not think he has ever had gout or pseudogout. Related Data Home Medications ?Medication ?Instructions ?Recorded ?Confirmed acetaminophen 500 mg tablet PO 08/07/24 aspirin 81 mg tablet,delayed 81 mg PO DAILY 08/07/24 08/07/24 release atorvastatin 40 mg tablet 40 mg PO DAILY 08/07/24 08/07/24 baclofen 20 mg tablet PO 08/07/24 calcium carbonate (Zachary-Gest 400 mg PO BID 08/07/24 08/07/24 Antacid) cholecalciferol (vitamin D3) 25 25 mcg PO DAILY 08/07/24 08/07/24 mcg (1,000 unit) tablet (Vitamin D3) clotrimazole 1 % topical cream applic topical 08/07/24 (Antifungal (clotrimazole)) furosemide 40 mg tablet PO 08/07/24 guaifenesin 600 mg tablet, mg PO 08/07/24 extended release 12 hr (Mucus Relief ER) lisinopril 40 mg tablet 40 mg PO DAILY 08/07/24 08/07/24 metoprolol succinate 100 mg 100 mg PO DAILY 08/07/24 08/07/24 tablet,extended release 24 hr nifedipine 90 mg tablet,extended 90 mg PO DAILY 08/07/24 08/07/24 release 24 hr pantoprazole 40 mg tablet,delayed 40 mg PO BID 08/07/24 08/07/24 release polyethylene glycol 3350 17 17 g PO DAILY 08/07/24 08/07/24 gram/dose oral powder potassium chloride 10 mEq 1 PO BID 08/07/24 capsule,extended release simethicone 80 mg chewable tablet 80 mg PO DAILY 08/07/24 08/07/24 (Gas Relief 80 (simethicone)) Allergies Allergy/AdvReac Type Severity Reaction Status Date / Time Haemophilus B polysaccharide Allergy Unknown Verified 08/07/24 14:59 conj w vancomycin Allergy Unknown Verified 08/07/24 14:59 Review of Systems Status of ROS: Reports: 6 or more systems reviewed and unremarkable except as noted in History and below PFSH PFS Social History Smoking Status: Former smoker What tobacco products do you use: cigarettes Smoking quit date/years: <= 15 years ago Do you use any of these nicotine containing products: None Second hand tobacco smoke exposure: No How often do you have a drink containing alcohol: never AUDIT-C Alcohol total score: 0 Non-prescribed substance use: denies use service: No Exam Const: Vital Signs, click to edit/add: Vital Signs - 24 hr 08/20/24 11:32 08/20/24 12:01 08/20/24 12:02 Temperature 97.8 F Pulse Rate 66 65 Pulse Rate [Pulse Oximeter] 64 Respiratory Rate 20 Blood Pressure 128/57 L Blood Pressure [Ri ght Upper Arm] 130/60 Pulse Oximetry 96 93 93 Oxygen Delivery Me thod Room Air 08/20/24 12:15 08/20/24 12:19 Temperature Pulse Rate 68 64 Pulse Rate [Pulse Oximeter] Respiratory Rate Blood Pressure Blood Pressure [Ri ght Upper Arm] Pulse Oximetry 94 94 Oxygen Delivery Me thod Wilfredo is alert, interactive, no apparent distress. Sclera clear, symmetrical facial function. Lungs are clear, breathing easily on room air, no wheezing or crackles. CV regular rate and rhythm, do not hear any murmur, normal S1-S2, no S3-S4. His cholecystostomy tube site looks clean dry intact, no erythema outside of the bandages, bandages were not removed. Abdomen is obese but soft, nontender, nondistended. He has below the knee compression stockings on both legs, no underlying edema. He has significant erythema and swelling along the distal radius into the wrist, do feel swelling and erythema over the dorsum of the wrist. Any range of motion of the wrist is painful. There is some swelling at the wrist. Distal sensation of his fingers on this hand or normal. He can mobilize his fingers but any range of motion of the wrist is painful. Documenting provider has reviewed patient's vital signs: yes Course Course ED Course: This is a 74-year-old male with increased right wrist pain seemingly overnight, it is erythematous and swollen. I actually have no concerns about stroke pathology, he states it was hard to uses hand because it hurt to use it. He has got swollen erythematous wrist. He is not febrile. With his recent history do need to consider septic arthritis but do wonder more about inflammatory arthritis like gout. He states he does not have a history of gout or pseudogout. We have contacted the longterm as I did not see acute use of Eliquis on his current medication reconciliation. They did confirm that he did get the 10 mg of Eliquis up to yesterday morning. There was a problem with the 5 mg not being transcribed, did not get 5 mg last night or today. Will get an ultrasound of this arm to make sure it is not a DVT as well but do suspect inflammatory arthritis. Will get full complement of labs, do venous ultrasound as well as x-ray this wrist. Reevaluation(s) Time of Reevaluation #1: 12:52 Reevaluation #1: Per patient observation assistant, patient is negative for DVT. She did want me to know that she does find him potentially confused. She did ultrasound him about 2 weeks ago, talked him about having DVTs in his legs. He states he has not been diagnosed with this, does not believe he has ever had ultrasound of his lower extremities. I am going to do noncontrast head CT just to elucidate any major intracranial pathology, he has been on anticoagulants, want to make sure that there is no subtle subdural or brain bleed. Time of Reevaluation #2: 13:56 Reevaluation #2: Reviewed with patient that is possibly he has gout or pseudogout. His uric acid is elevated, there is chondrocalcinosis seen on his x-ray imaging which could point to either or both of these etiologies. We discussed that this is basically crystalline deposition in the wrist. Ice, relative immobilization might help. He had an acute kidney injury while he was in the hospital, need to be mindful in careful of nephrotoxic agents. Likewise, he may have complications of prednisone systemically given he has a cholecystostomy tube for acute cholecystitis. In his treatment, have considered options. He recently had acute kidney injury, this would make NSAIDs relatively contraindicated. Would be a bit worried about colchicine with his recent liver issues although liver enzymes are normal today. This is possibly pseudogout as well with chondrocalcinosis. Do think that steroids may be our best option which possibly could increase risk of his infection but feel we need to do something to help alleviate his symptoms. Have asked Orthopedics to consider wrist injection but patient is on Eliquis, did give him a dose here, only missed 24 hours. Time of Reevaluation #3: 14:28 Reevaluation #3: Have conferred with Orthopedics, agree with intra-articular joint injection. Dr. Potter did kindly assist and help with the injection. Patient was consented on intra-articular right wrist injection. Skin was prepped with Betadine sterilely. 40 mg of Depo-Medrol was placed into the joint space easily. Patient tolerated the procedure well. Vital Signs Vital signs: Initial Vital Signs Temperature 97.8 F 08/20/24 11:32 Temperature Source Temporal Artery Scan 08/20/24 11:32 Pulse Rate 64 08/20/24 11:32 Pulse Rhythm Regular 08/20/24 11:32 Respiratory Rate 20 08/20/24 11:32 Blood Pressure 130/60 08/20/24 11:32 Blood Pressure Mean 83 08/20/24 11:32 Pulse Oximetry 96 08/20/24 11:32 Oxygen Delivery Method Room Air 08/20/24 11:32 Vital Signs Temperature 97.8 F 08/20/24 11:32 Pulse Rate 64 08/20/24 11:32 Respiratory Rate 20 08/20/24 11:32 Blood Pressure 130/60 08/20/24 11:32 Pulse Oximetry 96 08/20/24 11:32 Oxygen Delivery Method Room Air 08/20/24 11:32 Temperature 97.8 F 08/20/24 11:32 Pulse Rate 64 08/20/24 12:19 Respiratory Rate 20 08/20/24 11:32 Blood Pressure 128/57 L 08/20/24 12:01 Pulse Oximetry 94 08/20/24 12:19 Oxygen Delivery Method Room Air 08/20/24 11:32 Medications Administered Medications: Discontinued Medications Generic Name Dose Route Start Last Admin Trade Name Freq PRN Reason Stop Dose Admin Apixaban 5 mg 08/20/24 12:42 08/20/24 13:17 Apixaban 5 Mg Tablet PO 08/20/24 12:43 5 mg ONCE ONE Administration Medical Decision Making Lab Data Lab results reviewed: Yes I reviewed the patient's lab results Labs: Lab Results 08/20/24 Range/Units 11:59 WBC 10.03 (4.50-11.00) K/uL RBC 4.41 (4.30-5.90) m/uL Hgb 12.1 L (13.5-17.5) gm/dL Hct 38.4 (37.0-53.0) % MCV 87 (80-100) fL MCH 27 (26-34) pg MCHC 32 (32-36) gm/dL RDW Coeff of Rey 15.8 H (11.5-15.5) % Plt Count 180 (140-440) K/uL Neut % (Auto) 70.7 (42.0-72.0) % Lymph % (Auto) 15.7 L (20-44) % [place] % (Auto) 9.1 (0.0-11.0) % Eos % (Auto) 3.8 (0.0-7.0) % Baso % (Auto) 0.1 (0.0-3.0) % Neut # (Auto) 7.10 H (1.7-7.0) K/uL Lymph # (Auto) 1.60 (0.90-2.90) K/uL [place] # (Auto) 0.90 (0.00-0.90) K/UL Eos # (Auto) 0.38 (0.00-0.50) K/uL Baso # (Auto) 0.01 (0.00-0.30) K/uL Abs Immat Gran (auto) 0.06 (0.00-0.30) K/uL Imm/Tot Granulo (auto) 0.6 % D-Dimer Quant (PE/DVT) 1.52 H (0.00-0.50) ug/ml Sodium 139 (135-149) mmol/L Potassium 4.8 (3.6-5.1) mmol/L Chloride 108 (96-114) mmol/L Carbon Dioxide 22 (20-32) mmol/L Anion Gap 9 (7-15) mEq/L BUN 28 (7-30) mg/dL Creatinine 0.9 (0.5-1.5) mg/dL Estimated GFR 90 ml/min Glucose 168 H (60-115) mg/dL Lactate 1.4 (0.5-1.9) mmol/L Uric Acid 9.2 H (2.2-8.4) mg/dL Calcium 9.4 (8.4-10.6) mg/dL Total Bilirubin 0.4 (0.1-1.5) mg/dL AST 28 (12-35) U/L ALT 29 (4-50) U/L Alkaline Phosphatase 110 (40-150) U/L C-Reactive Protein 4.9 H (0.5-1.0) mg/dL Total Protein 7.0 (6.0-8.3) g/dL Albumin 3.6 (3.3-5.0) g/dL Imaging Data CT scan - head: Attestation: I have reviewed the pertinent imaging results. Radiologist's impression: Patient: WILFREDO HE Facility:?[facility] Patient ID:?[id number] Site Patient ID:?[id number] Site :?[id number] Study:?CT-Head WITHOUT-08/20/2024 1:13:54 PM Ordering Physician:Sugar Sánchez Final Report: TECHNIQUE: Multiplanar CT examination of the head was performed without the use of intravenous contrast. INDICATION: Altered mental status. COMPARISON: None. FINDINGS: No loss of moeller-white differentiation to suggest recent territorial infarct. No intracranial hemorrhage, abnormal extra-axial fluid collection, hydrocephalus or midline shift. The ventricles and cerebral sulci are prominent caliber, compatible with mild generalized parenchymal volume loss. Nurse patchy hypoattenuation of the supratentorial white matter diffusely nonspecific but consistent with severe chronic microvascular ischemic changes. The basal cisterns are patent. The paranasal sinuses and mastoid air cells remain clear. The orbits and calvarium are unremarkable. The cerebellar tonsils are normal position. IMPRESSION: 1. No acute intracranial findings. 2. Mild generalized parenchymal volume loss with severe chronic microvascular ischemic changes. Please note that all CT scans at this facility use dose modulation, iterative reconstruction, and/or weight-based dosing when appropriate to reduce radiation dose to as low as reasonably achievable. Dictated by Armando Fitzpatrick MD @ 08/20/2024 1:22:44 PM (Electronic Signature) Venous US: Attestation: I have reviewed the pertinent imaging results. Radiologist's impression: Patient: WILFREDO HE Facility:?[facility] Patient ID:?[id number] Site Patient ID:?[id number]. Site :?[id number] Study:?US-Extremity Right US UEV RIGHT-08/20/2024 12:52:10 PM Ordering Physician:Sugar Sánchez Final Report: INDICATION: Pain and swelling with recent DVT/PE COMPARISON: None. TECHNIQUE: Sonographic evaluation of the right upper extremity deep veins was performed utilizing moeller-scale and color/spectral Doppler imaging techniques. FINDINGS: Visualized right internal jugular vein is patent. Visualized right brachiocephalic vein is patent. Right subclavian vein is patent. Patent right axillary vein, brachial vein, basilic vein, cephalic vein, radial vein, and ulnar vein. IMPRESSION: No deep venous thrombosis detected in the right upper extremity. Dictated by Pedro Madrigal MD @ 08/20/2024 12:56:00 PM (Electronic Signature) XR right wrist: Attestation: I have reviewed the pertinent imaging results. My impression: Patient: WILFREDO HE Facility:?[facility] Patient ID:?[id number] Site Patient ID:?[id number]. Site :?[id number] Study:?XRay-Extremity Right WRIST 3V-08/20/2024 1:15:17 PM Ordering Physician:Sugar Sánchez Final Report: INDICATION: Pain, swelling COMPARISON: None. TECHNIQUE: Three radiographic view(s) of the right wrist. FINDINGS: No evident acute displaced fracture. Slight negative ulnar variance. There is chondrocalcinosis of the wrist. The joint spaces of the wrist are grossly preserved. IMPRESSION: 1. No evident acute displaced fracture. 2. Chondrocalcinosis. 3. Slight negative ulnar variance. Dictated by Pedro Madrigal MD @ 08/20/2024 1:24:12 PM (Electronic Signature) Discharge Plan Discharge Clinical Impression: Acute pain of right wrist Patient Disposition: Home w/ Parent or Adult Condition: Stable Instructions: Gout (ED) Additional Instructions: The uric acid was elevated and the x-ray did show chondrocalcinosis; this could be indicative of gout or pseudogout. Either way, the wrist was injected with 40 mg of Depo-Medrol and will treat either of these conditions. Use ice to the wrist, can use some Joseph wrap for compression as needed for comfort. Tylenol 1000 mg 3 times a day for pain management baseline. Hopefully the steroid will start to take effect. Patient does need to be on Eliquis 5 mg twice daily, he was given a dose in the ER tonight, needs to start on the Eliquis tonight at the longterm. Complete the Keflex per hospital discharge recommendations. If there are further concerns with this risk, concerns of secondary infection or not improving, please seek re-evaluation. Activity Level: Activity as Tolerated Prescriptions: No Action furosemide 40 mg tablet PO atorvastatin 40 mg tablet 40 mg PO DAILY potassium chloride 10 mEq capsule, extended release 1 PO BID metoprolol succinate 100 mg tablet extended release 24 hr 100 mg PO DAILY aspirin 81 mg tablet,delayed release (DR/EC) 81 mg PO DAILY acetaminophen 500 mg tablet PO baclofen 20 mg tablet PO nifedipine 90 mg tablet extended release 24hr 90 mg PO DAILY pantoprazole 40 mg tablet,delayed release (DR/EC) 40 mg PO BID calcium carbonate [Zachary-Gest Antacid] 200 mg calcium (500 mg) tablet,chewable 400 mg PO BID polyethylene glycol 3350 17 gram/dose powder 17 g PO DAILY lisinopril 40 mg tablet 40 mg PO DAILY clotrimazole [Antifungal (clotrimazole)] 1 % cream topical simethicone [Gas Relief 80 (simethicone)] 80 mg tablet,chewable 80 mg PO DAILY cholecalciferol (vitamin D3) [Vitamin D3] 25 mcg (1,000 unit) tablet 25 mcg PO DAILY guaifenesin [Mucus Relief ER] 600 mg tablet extended release 12hr PO Follow Up/Referrals: Bijan Crawford MD [Primary Care Provider] - Stand Alone Forms: [facility] Info Instructions
[2024-08-20 12:18] LABS: Lactate* 1.4 mmol/L (0.5-1.9)
[2024-08-20 12:19] LABS: Basophils Absolute Auto 0.01 K/uL (0.00-0.30); Basophils Percent Auto 0.1 % (0.0-3.0); Eosinophils Absolute Auto 0.38 K/uL (0.00-0.50); Eosinophils Percent Auto 3.8 % (0.0-7.0); Hematocrit 38.4 % (37.0-53.0); Hemoglobin* 12.1 gm/dL (13.5-17.5); Immature Granulocytes Abs Auto 0.06 K/uL (0.00-0.30); Immature Granulocytes Pct Auto 0.6 %; Lymphocytes Percent Auto 15.7 % (20-44); Mean Corpuscular HGB Conc 32 gm/dL (32-36); Mean Corpuscular Hemoglobin 27 pg (26-34); Mean Corpuscular Volume 87 fL (80-100); Monocytes Percent Auto 9.1 % (0.0-11.0); Neutrophils Percent Auto 70.7 % (42.0-72.0); Platelet Count* 180 K/uL (140-440); RDW Coefficient of Variation % 15.8 % (11.5-15.5); Red Blood Count 4.41 m/uL (4.30-5.90); White Blood Count* 10.03 K/uL (4.50-11.00)
[2024-08-20 12:21] LABS: Slide Review Reflex No
[2024-08-20 13:00] LABS: Albumin* 3.6 g/dL (3.3-5.0); Chloride* 108 mmol/L (96-114)
[2024-08-20 13:01] LABS: Potassium* 4.8 mmol/L (3.6-5.1); Sodium* 139 mmol/L (135-149)
[2024-08-20 13:03] LABS: Bilirubin Total* 0.4 mg/dL (0.1-1.5); Creatinine* 0.9 mg/dL (0.5-1.5); Estimated Glomerular Filt Rate 90 ml/min
[2024-08-20 13:04] LABS: Alanine Aminotransferase* 29 U/L (4-50); Alkaline Phosphatase* 110 U/L (40-150); Anion Gap 9 mEq/L (7-15); Aspartate Amino Transferase* 28 U/L (12-35); Blood Urea Nitrogen* 28 mg/dL (7-30); Calcium* 9.4 mg/dL (8.4-10.6); Carbon Dioxide* 22 mmol/L (20-32); D Dimer Quantitative* 1.52 ug/ml (0.00-0.50); Glucose* 168 mg/dL (60-115); Uric Acid* 9.2 mg/dL (2.2-8.4)
[2024-08-20 13:07] LABS: C Reactive Protein* 4.9 mg/dL (0.5-1.0)
[2024-08-20] MEDS: APIXABAN 5 MG TABLET PO (13:17)
--- OUTSIDE RECORDS SUMMARY | 2024-08-21 13:59 | XMS_ITS | Encounter Summary ---
Author Organization [facility] Address [address] [place] [address] Care Team Providers Care Numerical Control Drill Press Operator Name Role Phone Jeff Reyes M.D. Primary Care Provider [phone] Reason for Visit * Reason Onset Date Comments Post Hospital Follow-up 08/20/2024 Encounter Details Date Type Department Care Team (Latest Contact Info) Description 08/20/2024 Clinical Communication Department of Family Medicine, [facility], in [place], [place] [address] [place] [address] Asia Bartholomew, RAmparoNAmparo [address] [place] [address] Post Hospital Follow-up Social History Tobacco Use Types Packs/Day Years Used Date Smoking Tobacco: Former Cigarettes Q uit: 1977 Passive Smoke Exposure: Never Alcohol Use Standard Drinks/Week Comments Not Currently 1 (1 standard drink = 0.6 oz pur e alcohol) [facility] Utilities Answer Date Recorded In the past 12 months has e electric, gas, oil, or water company threatened to shut off services in your home? No 08/08/2024 Humiliation, Afraid, Rape, and Kick questionnair e Answer Date Recorded Within the last year, have y ou been afraid of your partner or ex-partner? No 08/08/2024 Within the last year, have y ou been humiliated or emotionally abused in other ways by your partner or ex-partner? No Within the last year, have y ou been kicked, hit, slapped, or otherwise physically hurt by your partner or ex-partner? No 08/08/2024 Within the last year, have y ou been raped or forced to have any kind of sexual activity by your partner or ex-partner? No 08/08/2024 Social Connection and Isolat ion Panel [NHANES] Answer Date Recorded In a typical week, how many times do you talk on the phone with family, friends, or neighbors? More than three times a week 10/18/2022 How often do you get togethe r with friends or relatives? Three times a week 10/18/2022 How often do you attend chur ch or yarsani services? Never 10/18/2022 Do you belong to any clubs o r organizations such as taoist groups, unions, fraternal or athletic groups, or school groups? No 10/18/2022 How often do you attend meet ings of the clubs or organizations you belong to? More than 4 times per year 10/18/2022 Are you , , di vorced, , never , or living with a partner? 10/18/2022 AUDIT-C Answer Date Recorded Q1: How often do you have a drink containing alcohol? Monthly or less 10/18/2022 Q2: How many drinks containi ng alcohol do you have on a typical day when you are drinking? Patient does not drink Q3: How often do you have si x or more drinks on one occasion? Never 10/18/2022 Overall Financial Resource Strain (CARDIA) Answe r Date Recorded How hard is it for you to pa y for the very basics like food, housing, medical care, and heating? Somewhat hard 12/22/2022 PHQ-2 Answer Date Recorded PHQ-2 Score 0 02/07/2024 [facility] of Occupat ional Health - Occupational Stress Questionnaire Answer Date Recorded Do you feel stress - tense, restless, nervous, or anxious, or unable to sleep at night because your mind is troubled all the time - these days? Only a little 10/18/2022 Exercise Vital Sign Answer Date Recorde d On average, how many days pe r week do you engage in moderate to strenuous exercise (like a brisk walk)? 4 days 10/18/2022 On average, how many minutes do you engage in exercise at this level? 30 min 10/18/2022 Hunger Vital Sign Answer Date Recorded Within the past 12 months, y ou worried that your food would run out before you got the money to buy more. Never true 08/08/19 25 Within the past 12 months, t he food you bought just didn't last and you didn't have money to get more. Never true 08/08/2024 PRAPARE - Transportation Answer Date Re corded In the past 12 months, has l ack of transportation kept you from medical appointments or from getting medications? No 07/24 In the past 12 months, has l ack of transportation kept you from meetings, work, or from getting things needed for daily living? No 08/08/2024 Nutrition Answer Date Recorded On average, how many serving s of fruits and vegetables do you eat per day (serving size is equal to 1 cup or approximately the size of a tennis ball)? 2-3 10/18/2022 Dental Answer Date Recorded Dental: Regular Dentist Yes 10/19/19 Employment Answer Date Recorded Employment status Permanently disabled Housing Stability Answer Date Recorded What is your living situation today? I have a [facility] place to live 08/08/2024 Education Answer Date Recorded What is the highest level of school you have completed or the highest degree you have received? 12th grade 10/18/2022 Sex and Gender Information Value Date Recorded Sex Assigned at Male 06/26/2018 4:20 PM SWEAT BAND SEPARATOR Legal Sex Male 3:33 AM SWEAT BAND SEPARATOR Gender Identity Not on file Sexual Orientation Not on file documented as of this encounter Plan of Treatment Upcoming Encounters Date Type Department Care Team (Latest Contact Info) Description 09/04/2024 10:45 AM SWEAT BAND SEPARATOR Comprehensive Visit Department of General Surgery in [place], [place] [address] [place] [address] Roland Benson D.O. [address] [place] [phone] Discharge Disposition: Home or Self Care documented as of this encounter Visit Diagnoses Not on filedocumented in this encounter Additional Health Concerns Assessment Noted Time PHQ-9 Depression Total Score: 10 018 11:00 AM CDT documented as of this encounter Care Teams Numerical Control Drill Press Operator Relationship Specialty Start Date End Date Jeff Reyes M.D. [address] [place] [address] PCP - General 03/14/24 documented as of this encounter
--- OUTSIDE RECORDS SUMMARY | 2024-08-21 13:59 | XMS_ITS | Encounter Summary ---
Author Organization [facility] Address [address] [place] [address] Care Team Providers Care Painter Chassis Name Role Phone Jeff Reyes M.D. Primary Care Provider [phone] Encounter Details Date Type Department Care Team (Late st Contact Info) Description 08/16/[address] [facility] [address] [place] [phone] Yasmani Shea M.D. [address] [place] [address] Social History Tobacco Use Types Packs/Day Years Used Date Smoking Tobacco: Former Cigarettes Q uit: 1977 Passive Smoke Exposure: Never Alcohol Use Standard Drinks/Week Comments Not Currently 1 (1 standard drink = 0.6 oz pur e alcohol) [facility] Utilities Answer Date Recorded In the past 12 months has [facility] [employer], gas, oil, or water [employer] threatened to shut off services in your [...] 10/18/2022 How often do you attend chur or roman catholic services? Never 10/18/2022 Do you belong to any clubs o r organizations such as methodist groups, unions, fraternal or athletic groups, or [...] Answer Date Recorded PHQ-2 Score 0 02/07/2024 [facility] of Occupat ional Health - Occupational Stress [...] your living situation today? I have a [facility] place to live 08/08/2024 Education Answer Date Recorded What is the highest level of school you have completed or the highest degree you have received? 12th grade 10/18/2022 Sex and Gender Information Value Date Recorded Sex Assigned at Male 06/26/2018 4:20 PM RESIDENT BUYER Legal Sex Male 3:33 AM RESIDENT BUYER Gender Identity Not on file Sexual Orientation Not on file documented as of this encounter Progress Notes * Yasmani Shea M.D. - 08/16/2024 6:06 PM CST error DENT BUYER documented in this encounter Plan of Treatment Upcoming Encounters Date Type Department Care Team (Latest Contact Info) Description 09/04/2024 10:45 AM RESIDENT BUYER Comprehensive Visit Department of General Surgery in [place], [place] [address] [place] [phone] Roland Benson D.O. [address] [place] [phone] Discharge Disposition: Home or Self Care documented as of this encounter Visit Diagnoses Not on filedocumented in this encounter Additional Health Concerns Assessment Noted Time PHQ-9 Depression Total Score: 10 018 11:00 AM CDT documented as of this encounter Care Teams Painter Chassis Relationship Specialty Start Date End Date Jeff Reyes M.D. [address] [place] [phone] PCP - General 03/14/24 documented as of this encounter
--- OUTSIDE RECORDS SUMMARY | 2024-08-21 13:59 | XMS_ITS | Encounter Summary ---
Author Organization [facility] Address [address] [place] [address] Care Team Providers Care Resource Specialist Name Role Phone Jeff Reyes M.D. Primary Care Provider [phone] Encounter Details Date Type Department Care Team (Late st Contact Info) Description 08/14/2024 7:35 PM MANUFACTURING QUALITY TECHNICIAN Ancillary Procedure Department of Nursing Social History Tobacco Use Types Packs/Day Years Used Date Smoking Tobacco: Former Cigarettes Q uit: 1977 Passive Smoke Exposure: Never Alcohol Use Standard Drinks/Week Comments Not Currently 1 (1 standard drink = 0.6 oz pur e alcohol) [facility] Utilities Answer Date Recorded In the past 12 months has e [employer], gas, oil, or water [facility] threatened to shut off services in your [...] often do you attend chur ch or advent services? Never 10/18/2022 Do you belong to any clubs o r organizations such as protestant groups, unions, fraternal or athletic groups, or [...] Answer Date Recorded PHQ-2 Score 0 02/07/2024 [facility] of Occupat ional Health - Occupational Stress [...] your living situation today? I have a [facility] place to live 08/08/2024 Education Answer Date Recorded What is the highest level of school you have completed or the highest degree you have received? 12th grade 10/18/2022 Sex and Gender Information Value Date Recorded Sex Assigned at Male 06/26/2018 4:20 PM MANUFACTURING QUALITY TECHNICIAN Legal Sex Male 3:33 AM MANUFACTURING QUALITY TECHNICIAN Gender Identity Not on file Sexual Orientation Not on file documented as of this encounter Plan of Treatment Upcoming Encounters Date Type Department Care Team (Latest Contact Info) Description 09/04/2024 10:45 AM MANUFACTURING QUALITY TECHNICIAN Comprehensive Visit Department of General Surgery in [place], [place] [address] [place] [phone] Roland Benson D.O. [address] [place] [phone] Discharge Disposition: Home or Self Care documented as of this encounter Procedures Procedure Name Priority Date/Time Associated Diagnosis Comments NURSING IMAGE EXAM Routine 08/14/2024 7: 20 PM MANUFACTURING QUALITY TECHNICIAN documented in this encounter Results * Leg, right-Nursing Image Exam (08/14/2024 7:20 PM MANUFACTURING QUALITY TECHNICIAN) 08/14/2024 7:17 PM MANUFACTURING QUALITY TECHNICIAN Narrative [facility] - 08/14/2024 7:20 PM MANUFACTURING QUALITY TECHNICIAN This order has been created and auto-finalized to support the import of images acquired without order. The clinical documentation to support these images can be found on the encounter that produced images. us Provider Not In System IMG NON RAD IMAGING PROCE DURES Final Result [facility] NA documented in this encounter Visit Diagnoses Not on filedocumented in this encounter Additional Health Concerns Assessment Noted Time PHQ-9 Depression Total Score: 10 05/26/ 018 11:00 AM CDT documented as of this encounter Care Teams Resource Specialist Relationship Specialty Start Date End Date Jeff Reyes M.D. [address] [place] [phone] PCP - General 03/14/24 documented as of this encounter
--- OUTSIDE RECORDS SUMMARY | 2024-08-21 14:00 | XMS_ITS | Encounter Summary ---
Author Organization [facility] Address [address] [place] [address] Care Team Providers Care Earth Mover Name Role Phone Jeff Reyes M.D. Primary Care Provider [phone] Reason for Referral * Outpatient (Routine) - Authorized Specialty Diagnoses / Procedures Referred By Contac t Referred To Contact Yasmani Shea M.D. [address] [place] [phone] Phone: tel: fax: [facility] Referral ID Status Reason Start Date Expiration Date V isits Requested Visits Authorized [id number] Authorized 08/16/2024 02/15/2026 1 1 Scheduling Instructions We will be contacting you with more information on this referral. An appointment will be scheduled for you. More information is listed below. TER * Outpatient (Routine) - Authorized Specialty Diagnoses / Procedures Referred By Contac t Referred To Contact General Surgery Diagnoses Cholecystitis Yasmani Shea M.D. [address] [place] [phone] Phone: tel: fax: [facility] Region Referral ID Status Reason Start Date Expiration Date Visits Requested Visits Authorized [id number] Authorized Specialty Services Required 08/16/2024 02/15/2026 1 1 TER * Outpatient (Routine) - Authorized Specialty Diagnoses / Procedures Referred By Jono donohue Referred To Contact Radiology Diagnoses Cholecystitis Procedures IR Percutaneous Cholecystostomy Tube Exchange Anuel Nunn M.D. [address] [place] [address] Phone: tel: fax: [facility] Region Referral ID Status Reason Start Date Expiration Date V isits Requested Visits Authorized [id number] Authorized 08/11/2024 08/11/2025 1 1 TER Reason for Visit * Auth/Cert (Routine) Specialty Diagnoses / Procedures Referred By Jono donohue Referred To Contact Diagnoses Embolus Pulmonary (HCC) abd pain Procedures INPT Referral ID Status Reason Start Date Expiration Date Visits Re quested Visits Authorized [id number] 1 1 Encounter Details Date Type Department Care Team (Late st Contact Info) Description 08/08/2024 12:41 AM FAGOTER - 08/16/2024 5:59 PM FAGOTER Hospital Encounter [facility], Fourth Floor [address] [place] [address] David Perkins M.B.B.S. [address] [place] [address] Josep Lomax [address] [place] [address] Vish Nicole M.D., Ph.D. [address] [place] [address] Yasmani Shea M.D. [address] [place] [address] Cholecystitis (Primary Dx); Embolus Pulmonary (HCC); Paraplegia (HCC); Multiple Sclerosis (HCC) Discharge Disposition: Home or Self Care Social History Tobacco Use Types Packs/Day Years Used Date Smoking Tobacco: Former Cigarettes Q uit: 1977 Passive Smoke Exposure: Never Alcohol Use Standard Drinks/Week Comments Not Currently 1 (1 standard drink = 0.6 oz pur e alcohol) [facility] Utilities Answer Date Recorded In the past 12 months has e [employer], gas, oil, or water [employer] threatened to shut off services in your [...] week 10/18/2022 How often do you attend [facility] or yazdanism services? Never 10/18/2022 Do you belong to any clubs o r organizations such as anabaptist groups, unions, fraternal or athletic groups, or [...] you are drinking? Patient does not drink 3 Q3: How often do you have si x or more drinks on one occasion? Never 10/18/2022 Overall Financial Resource Strain (CARDIA) Answe r Date Recorded How hard is it for you to pa y for the very basics like food, housing, medical care, and heating? Somewhat hard 12/22/2022 PHQ-2 Answer Date Recorded PHQ-2 Score 0 02/07/2024 [facility] - Occupational Stress Questionnaire Answer Date Recorded [...] Date Recorded Dental: Regular Dentist Yes 10/19/19 23 Employment Answer Date Recorded Employment status Permanently disabled 3 Housing Stability Answer Date Recorded What is your living situation today? I have a [facility] [place] place to live 08/08/2024 Education Answer Date Recorded What is the highest level of school you have completed or the highest degree you have received? 12th grade 10/18/2022 Sex and Gender Information Value Date Recorded Sex Assigned at Male 06/26/2018 4:20 PM FAGOTER Legal Sex Male 3:33 AM FAGOTER Gender Identity Not on file Sexual Orientation Not on file documented as of this encounter Last Filed Vital Signs Vital Sign Reading Time Taken Comments Blood Pressure 163/79 08/16/2024 2:10 PM FAGOTER Pulse 74 08/16/2024 2:10 PM FAGOTER Temperature 36.4 C (97.5 F) 08/16/2024 2:10 PM FAGOTER Respiratory Rate 22 08/16/2024 2:10 PM FAGOTER Oxygen Saturation 95% 08/16/2024 2:34 PM FAGOTER Inhaled Oxygen Concentration - - Weight 110 kg (241 lb 8 oz) 08/16/2024 6:[address] Height 185.4 cm (6' 1) 08/08/2024 12:41 AM FAGOTER Body Mass Index 31.86 08/08/2024 12:41 AM FAGOTER documented in this encounter Functional Status * Intimate Partner Violence Question Answer Date of Assessment Author Within the last year, have y ou been humiliated or emotionally abused in other ways by your partner or ex-partner? No 08/08/2024 1:00 AM FAGOTER Tomasa Stacy ra, R.N. Within the last year, have y ou been afraid of your partner or ex-partner? No 08/08/2024 1:00 AM FAGOTER Kiesha Stacy, R.N. Within the last year, have y ou been raped or forced to have any kind of sexual activity by your partner or ex-partner? No 08/08/2024 1:00 AM FAGOTER Kiesha Yates, R.N. Within the last year, have y ou been kicked, hit, slapped, or otherwise physically hurt by your partner or ex-partner? No 08/08/2024 1:00 AM FAGOTER Kiesha Yates, R.N. documented as of this encounter Discharge Summaries * Yasmani Shea M.D. - 08/16/2024 5:59 PM CST Images from the original note were not included. Discharge Summary Date of Admission: 08/08/2024 Admitting Physician: Josep Lomax Date of Discharge: 08/16/2024 Discharging Physician:Yasmani Shea M.D. PRIMARY DISCHARGE DIAGNOSES # Acute cholecystitis # Acute pulmonary embolism # Cellulitis of the lower extremities SECONDARY DISCHARGE DIAGNOSES #Acute Cholecystitis Summary: Post-procedure after percutaneous cholecystostomy. No increased abdominal pain, nausea, orvomiting. HIDA scan confirmed acute cholecystitis with cystic duct obstruction. High surgical risk precludes cholecystectomy. Management Plan: Flush catheter with 10 mL normal saline daily while inpatient; reduce to as- needed flushing upon discharge unless concerning signs arise (e.g., fever, worsening RUQ pain, or no catheter output). Change dressing every other day or more frequently if soiled. DME for dressing supplies ordered; family to product picker supplies. Follow up with General Surgery for elective cholecystectomy evaluation. Routine exchange of cholecystostomy tube in 3 months if not surgically managed sooner. Completed Zosyn on 08/13/2024, with no additional antibiotics anticipated. Monitor for signs of infection or occlusion. #Hemobilia Summary: Cholecystostomy output of 120 mL hemobilia without clots. Baseline hemoglobin decreased from 13.3 to 11.2, with overall stability. #Pulmonary Embolism Summary: Subsegmental PE identified on imaging, unlikely to fully explain hypoxia. Patient anticoagulated. Management Plan: Discontinue heparin and initiated apixaban ON 08/12/2024 Monitor oxygenation; currently on room air. #Acute Hypoxic Respiratory Failure Summary: Multifactorial (sepsis, PE, MS progression). SpO2 improved on supplemental oxygen. #Severe Sepsis #Acute Kidney Injury (resolved) Summary: Likely multifactorial (sepsis, hypoxia, possible contrast nephropathy). Creatinine returned to normal (08/11/2024). Management Plan: Continue monitoring renal function. Avoid further contrast exposure. #Hepatic cyst, stable since 2022 on imaging Summary: Stable hepatic hemangioma and indeterminate renal lesion. Management Plan: these will need to be followed as an outpatient, though per radiology the cyst is stable since 2022(Cyst in the hepatic dome at the junction of the right and left lobes, 6.5 cm in maximal visualizeddimension, stable compared to 12/14/2022. ) #Hypertension Summary: BP soft (102/83); antihypertensives held. Management Plan: Resumed antihypertensives (nifedipine, Toprol, lisinopril, Lasix) for discharge #Multiple Sclerosis Summary: Chronic condition, currently stable. Management Plan: Continue baclofen as prescribed for spasticity. #Hyperlipidemia Summary: Chronic condition. Management Plan: Continue atorvastatin 40 mg daily. #GI Prophylaxis Plan: Continue pantoprazole 40 mg BID. #Bilateral Lower Limb Cellulitis Summary: Bilateral erythema and localized temperature increase below the knee. HOSPITAL COURSE Ren Ramirez is a 74 y.o. male with past medical history of multiple sclerosis, paraplegia,chronic indwelling catheter initially presented to [facility] from [facility] with right lower quadrant pain directly transferred to [facility] for further management of bila teral PE with right heart strain, bilateral DVT and acute cholecystitis. He was managed successful with anticoagulation (initially heparin then Eliquis). Due to his PE, general surgery recommended a cholecystostomy tube which is draining well. He completed zosyn on 08/13 for cholecystitis but due tocellulitis a course of ceftriaxone was started, and he will complete 4 days of keflex upon discharge. Overall his mobility is poor which puts him at high risk of thrombosis, so continuation of anticoagulation for at least 6 months then re- evaluating his clinical status and mobility is recommended. Outpatient follow up with general surgery was requested for cholecystitis management. To do for PCP upon follow up > Follow general surgery recommendations for cholecystitis > Discuss duration of anticoagulation - This PE may have been provoked from his cholecystitis, though Ren is not very mobile at baseline and uses a wheelchair, so a discussion about further anticoagulation could be had as long as he is not bleeding. > Consider repeat imaging or GI referral for hepatic lesion, though it has been stable since 2022 per radiology > Cancer screening Consults: IP CONSULT TO CARE MANAGEMENT IP CONSULT TO CARE MANAGEMENT IP CONSULT TO DIETITIAN IP CONSULT TO HEMATOLOGY IP CONSULT TO GENERAL SURGERY IP CONSULT TO WOUND CARE DISCHARGE EXAMINATION General: Alert and oriented. No acute distress. HEENT: NCAT. No scleral icterus. Oral mucosa moist. Neck: Supple. No lymphadenopathy. Cardiovascular: Normal S1/S2. No murmurs. Lungs: Clear to auscultation bilaterally. Abdomen: Soft, NT, ND, +BS. Extremities: No BLE edema. Neurological: Grossly intact. VITAL SIGNS Vitals: 08/16/24 1434 BP: Pulse: Resp: Temp: SpO2: 95% Discharge Condition: stable Discharge Medications: Discharge Medications TAKE these medications acetaminophen 500 mg tablet Commonly known as: TylenoL Take 2 tablets (1,000 mg total) by mouth 3 (three) times a day. AntifungaL (clotrimazole) 1 % cream Apply 1 Application topically 2 (two) times a day. Generic drug: clotrimazole apixaban 5 mg tablet Commonly known as: Eliquis Start taking on: August 16, 2024 Take 2 tablets (10 mg total) by mouth 2 (two) times a day for 3 days, THEN 1 tablet (5 mg total) 2 (two) times a day. aspirin [address] tablet Take 1 tablet (81 mg total) by mouth daily. atorvastatin 40 mg tablet Commonly known as: Lipitor Take 1 tablet (40 mg total) by mouth at bedtime. bacitracin 500 unit/gram ointment Apply 1 Application topically 2 (two) times a day. baclofen 10 mg tablet Commonly known as: LioresaL Take 1 tablet (10 mg total) by mouth 2 (two) times a day. calcium carbonate 500 mg (200 mg calcium) chewable tablet Commonly known as: Tums Chew 2 tablets (400 mg of calcium total) 2 (two) times a day. cephalexin 500 mg capsule Commonly known as: Keflex Take 1 capsule (500 mg total) by mouth every 6 (six) hours for 4 days. cholecalciferol 25 mcg (1,000 unit) tablet Take 1 tablet (25 mcg total) by mouth daily. Generic drug: cholecalciferol (vitamin D3) diclofenac sodium 1 % gel Commonly known as: Voltaren Apply 2 g topically 2 (two) times a day as needed (pain). * furosemide 40 mg tablet Commonly known as: Lasix Take 40 mg by mouth daily. * furosemide 20 mg tablet Commonly known as: Lasix Take 1 tablet (20 mg total) by mouth daily. GAS RELIEF 80 mg chewable tablet Chew 1 tablet (80 mg total) 4 (four) times a day as needed for flatulence. Generic drug: simethicone latanoprost 0.005 % ophthalmic solution Commonly known as: Xalatan Administer 1 drop into both eyes daily. lisinopriL 40 mg tablet Take 1 tablet (40 mg total) by mouth daily. melatonin 5 mg tablet Take 1 tablet (5 mg total) by mouth at bedtime as needed (for sleep). metoprolol succinate 100 mg 24 hr tablet Commonly known as: Toprol XL Take 1 tablet (100 mg total) by mouth daily. Do not crush or chew. NIFEdipine XL 90 mg 24 hr tablet Commonly known as: Procardia XL Take 1 tablet (90 mg total) by mouth daily. ondansetron 4 mg tablet Commonly known as: Zofran Take 4 mg by mouth every 6 (six) hours as needed for nausea or vomiting. pantoprazole 40 mg EC tablet Commonly known as: Protonix Take 1 tablet (40 mg total) by mouth 2 (two) times a day before breakfast and dinner. polyethylene glycol 17 gram powder packet Commonly known as: Miralax Take 1 packet (17 g total) by mouth daily as needed for constipation. Dissolve each 17 g dose in 240 mLs (8 ounces) of beverage. potassium chloride 10 mEq ER capsule Take 1 capsule (10 mEq total) by mouth 2 (two) times a day with meals. sennosides-docusate sodium 8.6-50 mg per tablet Commonly known as: Senokot-S Take 1 tablet by mouth 2 (two) times a day as needed for constipation. * There are duplicate medications prescribed to the patient Procedures during admission: DIAGNOSTICS Imaging: IR Percutaneous Cholecystostomy Tube Placement Final Result 1. Insertion of an intercostal transhepatic [address] Abdomen Pelvis with IV Contrast Final Result Findings compatible with cholecystitis. Diffuse gallbladder wall thickening, adjacent fat stranding, and mild gallbladder distention. NM Hepatobiliary with Pharmacologic Intervention Final Result 1. No evidence of the cholecystitis or biliary obstruction. 2. Photopenic area at the dome on the right lobe of liver, recommend liver ultrasound or hepatic CTfor further evaluation. Echo Transthoracic (TTE) Final Result Echo performed at the patient's bedside. LEFT VENTRICLE:Normal left ventricular chamber size. Concentric remodeling (increased wall thickness to cavity ratio). Calculated 2-D biplane volumetric left ventricular ejection fraction of 68%. No regional wall motion abnormalities. Flattening of the ventricular septum. Grade 1/3 left ventricular diastolic dysfunction, consistent with low to normalleft ventricular filling pressure. RIGHT VENTRICLE:Moderate-severely enlarged right ventricular chamber size. Mild- moderately reduced right ventricular systolic function. Estimated right ventricular systolic pressure 45 mmHg (right atrial pressure of 5 mmHg). ATRIA:Normal left atrial size by visual estimate. Enlarged right atrial size. CARDIAC VALVES:Trileaflet aortic valve. Mildly thickened aortic valve. No aortic valve regurgitation. Normal mitral valve. Trivial mitral valve regurgitation. Pulmonary valve not well visualized. Normal pulmonary valve systolic velocities. Trivial pulmonary valve regurgitation. Normal tricuspid valve. Trivial tricuspid valve regurgitation. OTHER ECHO FINDINGS:Normal inferior vena cava size with normal inspiratory collapse (>50%). Normal mid ascending aorta diameter of 35 mm. Upper limit of normal of the mid ascending aorta, for age,sex and BSA is 44 mm. Abdominal aorta not visualized. Imaging inadequate for detection of atrial level shunt by color flow imaging. No intracardiac mass or thrombus, but the left atrial appendage cannot be visualized adequately with transthoracic echo to exclude thrombus in this location. No pericardial effusion. Prominent epicardial fat layer. Attempts were made to optimize the echocardiographic images and two or more left ventricular segments were not visualized adequately to evaluate cardiac structure. The patient's current allergies and medications have been screened. Intravenous Definity ultrasound enhancement agent(s) administered to enhance endocardial border definition. Imaging enhancement agent administered per Echocardiography Contrast Administration Protocol Reference Document [id number] Rev 11/04/2021. Patient met an inclusion criterion and did not have contraindications in screening sections. For the complete report, see the Order-Level Documents. CT Chest Angiogram and Pulmonary Arteries with IV Contrast Final Result 1. Positive for acute pulmonary embolism. 2. Signs of right ventricular dysfunction are absent. Critical result reported to JOSEP LOMAX on 08/08/2024 5:47 AM via [employer] secure chat US Gallbladder and or Biliary Ducts Final Result Somewhat limited visualization as above, with findings equivocal for acute cholecystitis. IR Percutaneous Cholecystostomy Tube Exchange (Results Pending) Labs: Results from last 7 days Lab Units 08/16/24 0544 08/15/24 0532 08/14/24 0556 WBC x10(9)/L 8.9 10.1* 10.0* HEMOGLOBIN g/dL 12.1* 12.7* 13.2 HEMATOCRIT % 37.6* 38.8 40.6 PLATELETS AUTO x10(9)/L 151 155 166 Results from last 7 days Lab Units 08/16/24 0544 08/15/24 0532 08/14/24 0556 08/13/24 0511 SODIUM P mmol/L 137 136 137 140 CHLORIDE P mmol/L 106 104 104 108* BUN P mg/dL 14 10 9 14 CREATININE mg/dL 0.71* 0.74 0.71* 0.84 CALCIUM P mg/dL 8.8 8.7* 8.6* 8.4* ALBUMIN P g/dL -- 2.9* 2.9* 2.8* BILIRUBIN TOTAL P mg/dL -- 0.4 0.3 0.3 ALK PHOS P U/L -- 136* 154* 160* ALT P U/L -- 24 32 42 AST P U/L -- 19 23 37 Disposition: SNF Pending Labs at Discharge: Pending Labs Order Current Status Fungal Culture, Routine Preliminary result Patient Instructions: Refer to the After Visit Summary for this admission. Outpatient Orders: Follow up with pcp Follow-up Appointments: For appointment details refer to your Patient Appointment Guide. Total time spent 35 minutes, 30 minutes spent in [id number] evaluation and coordination of care. Yasmani Shea M.D. TER documented in this encounter Medications at Time of Discharge acetaminophen (TylenoL) 500 mg tablet Take 2 tablets (1,000 mg total) by mouth 3 (three) times a day. 08/16/2024 AntifungaL, clotrimazole, 1 % cream Apply 1 Application topically 2 (two) times a day. 05/14/2024 apixaban (Eliquis) 5 mg tablet Take 2 tablets (10 mg total) by mouth 2 (two) times a day for 3 days, THEN 1 tablet (5 mg total) 2 (two) times a day. 192 tablet 08/16/[address] tablet Take 1 tablet (81 mg total) by mouth daily. 60 tablet 11/13/2022 atorvastatin (LIPITOR) 40 mg tablet Take 1 tablet (40 mg total) by mouth at bedtime. 30 tablet 11/13/2022 bacitracin 500 unit/gram ointment Apply 1 Application topically 2 (two) times a day. 08/10/2023 calcium carbonate (TUMS) 500 mg (200 mg calcium) chewable tablet Chew 2 tablets (400 mg of calcium total) 2 (two) times a day. 12/22/2022 cholecalciferol 25 mcg (1,000 unit) tablet Take 1 tablet (25 mcg total) by mouth daily. 08/16/2024 diclofenac sodium (Voltaren) 1 % gelIndications:M ultiple Sclerosis (HCC) Apply 2 g topically 2 (two) times a day as needed (pain). 08/16/2024 furosemide (LASIX) 20 mg tablet Take 1 tablet (20 mg total) by mouth daily. 30 tablet 11 01/26/2023 furosemide (Lasix) 40 mg tablet Take 40 mg by mouth daily. GAS RELIEF 80 mg chewable tablet Chew 1 tablet (80 mg total) 4 (four) times a day as needed for flatulence. 08/16/2024 latanoprost (XALATAN) 0.005 % ophthalmic solution Administer 1 drop into both eyes daily. 09/19/2022 lisinopriL (PRINIVIL,ZESTRI L) 40 mg tabletIndication s:Hypertension Essential Primary Take 1 tablet (40 mg total) by mouth daily. 90 tablet 12/08/2022 melatonin 5 mg tablet Take 1 tablet (5 mg total) by mouth at bedtime as needed (for sleep). 30 tablet 11 02/09/2024 metoprolol succinate (TOPROL-XL) 100 mg 24 hr tabletIndication s:Hypertension Essential Primary Take 1 tablet (100 mg total) by mouth daily. Do not crush or chew. 90 tablet 11/13/2022 ondansetron (ZOFRAN) 4 mg tablet Take 4 mg by mouth every 6 (six) hours as needed for nausea or vomiting. 06/23/2023 pantoprazole (PROTONIX) 40 mg EC tablet Take 1 tablet (40 mg total) by mouth 2 (two) times a day before breakfast and dinner. 180 tablet 3 11/13/2022 polyethylene glycol (MIRALAX) 17 gram powder packet Take 1 packet (17 g total) by mouth daily as needed for constipation. Dissolve each 17 g dose in 240 mLs (8 ounces) of beverage. 30 each 1 01/25/2023 potassium chloride 10 mEq ER capsule Take 1 capsule (10 mEq total) by mouth 2 (two) times a day with meals. 08/16/2024 sennosides-docus ate sodium (SENOKOT-S) 8.6-50 mg per tabletIndication s:Neurogenic Bowel Take 1 tablet by mouth 2 (two) times a day as needed for constipation. 07/04/2018 cephalexin (Keflex) 500 mg capsuleIndicatio ns:Embolus Pulmonary (HCC) Take 1 capsule (500 mg total) by mouth every 6 (six) hours for 4 days. 16 capsule 08/16/2024 documented as of this encounter Progress Notes * Yasmani Shea M.D. - 08/16/2024 2:12 PM CST Images from the original note were not included. Internal Medicine Progress Note Date of Admission: 08/08/2024 LOS: 8 days SUBJECTIVE CHIEF COMPLAINT Embolus Pulmonary (HCC) INTERVAL UPDATES Ren Ramirez was seen and examined today. Patient doing well this morning. Denies any new symptoms. He does have ongoing dyspnea. We discussed that his pulmonary embolism may be causing dyspnea. This has improved as of 08/16. Intake/Output Summary (Last 24 hours) at 08/16/2024 1412 Last data filed at 08/16/2024 0926 Gross per 24 hour Intake 790 ml Output 1745 ml Net -955 ml OBJECTIVE BP (!) 163/79 (BP Location: Right arm;Upper, Patient Position: Semi-recumbent) Pulse 74 Temp 36.4 ??C (Temporal) Resp 22 Ht 185.4 cm Wt 110 kg SpO2 94% BMI 31.86 kg/m?? PHYSICAL EXAM General: Alert and Orientated HEENT: Normocephalic, atraumatic. No scleral icterus. Oral mucosa moist. Neck: Supple. No lymphadenopathy. Cardiovascular: Normal S1/S2. No murmurs. Lungs: Clear to Auscultation Abdomen: Soft, nontender, nondistended. Positive bowel sounds. Extremities: No bilateral lower extremity edema. Neurological: Grossly intact. Admission Weight: 116 kg Current Weight: 110 kg Intake/Output Summary (Last 24 hours) at 08/16/2024 1412 Last data filed at 08/16/2024 0926 Gross per 24 hour Intake 790 ml Output 1745 ml Net -955 ml DIAGNOSTICS Results from last 7 days Lab Units 08/16/24 0544 08/15/24 0532 08/14/24 0556 WBC x10(9)/L 8.9 10.1* 10.0* HEMOGLOBIN g/dL 12.1* 12.7* 13.2 HEMATOCRIT % 37.6* 38.8 40.6 PLATELETS AUTO x10(9)/L 151 155 166 Results from last 7 days Lab Units 08/16/24 0544 08/15/24 0532 08/14/24 0556 SODIUM P mmol/L 137 136 137 CHLORIDE P mmol/L 106 104 104 BUN P mg/dL 14 10 9 CREATININE mg/dL 0.71* 0.74 0.71* CALCIUM P mg/dL 8.8 8.7* 8.6* Results from last 7 days Lab Units 08/15/24 0532 08/14/24 0556 08/13/24 0511 08/12/24 0541 08/11/24 0600 08/10/24 0506 ALBUMIN P g/dL 2.9* 2.9* 2.8* 2.8* 2.7* 2.6* AST P U/L 19 23 37 50* 83* 105* ALT P U/L 24 32 42 49 75* 83* ALK PHOS P U/L 136* 154* 160* 190* 233* 209* BILIRUBIN DIRECT P mg/dL 0.2 0.2 0.1 0.2 0.2 0.3 BILIRUBIN TOTAL P mg/dL 0.4 0.3 0.3 0.3 0.4 0.4 MICRO Results for orders placed or performed during the hospital encounter of 08/08/24 (from the past 2 weeks) Bacterial Culture, Aerobic + Susceptibility, Urine Specimen: Urine, Indwelling Catheter Specimen Source Site: Urine Result Value Urine Culture Urogenital microbiota, susceptibilities not performed per laboratory criteria. Bacteria / Bautista Culture, Blood #1 Specimen: Blood, Peripheral Draw Specimen Source Site: Blood Result Value Bacteria/Bautista Culture, Blood No growth after 5 day/s of incubation. Bacteria / Bautista Culture, Blood #2 Specimen: Blood, Peripheral Draw Specimen Source Site: Blood Result Value Bacteria/Bautista Culture, Blood No growth after 5 day/s of incubation. Bacterial Culture, Aerobic + Susceptibility Specimen: Gallbladder; Fluid Specimen Source Site: Fluid Result Value Bacterial Culture, Aerobic + Susc No growth after 5 days of incubation. Gram Stain Specimen: Gallbladder; Fluid Specimen Source Site: Fluid Result Value Gram Stain No organisms seen. White blood cells, Few. Bacterial Culture, Anaerobic + Susceptibility Specimen: Gallbladder; Fluid Specimen Source Site: Fluid Result Value Bacterial Culture, Anaerobic No growth after 7 days of incubation. RADIOLOGY IR Percutaneous Cholecystostomy Tube Placement Final Result 1. Insertion of an intercostal transhepatic [address] Abdomen Pelvis with IV Contrast Final Result Findings compatible with cholecystitis. Diffuse gallbladder wall thickening, adjacent fat stranding, and mild gallbladder distention. NM Hepatobiliary with Pharmacologic Intervention Final Result 1. No evidence of the cholecystitis or biliary obstruction. 2. Photopenic area at the dome on the right lobe of liver, recommend liver ultrasound or hepatic CTfor further evaluation. Echo Transthoracic (TTE) Final Result Echo performed at the patient's bedside. LEFT VENTRICLE:Normal left ventricular chamber size. Concentric remodeling (increased wall thickness to cavity ratio). Calculated 2-D biplane volumetric left ventricular ejection fraction of 68%. No regional wall motion abnormalities. Flattening of the ventricular septum. Grade 1/3 left ventricular diastolic dysfunction, consistent with low to normalleft ventricular filling pressure. RIGHT VENTRICLE:Moderate-severely enlarged right ventricular chamber size. Mild- moderately reduced right ventricular systolic function. Estimated right ventricular systolic pressure 45 mmHg (right atrial pressure of 5 mmHg). ATRIA:Normal left atrial size by visual estimate. Enlarged right atrial size. CARDIAC VALVES:Trileaflet aortic valve. Mildly thickened aortic valve. No aortic valve regurgitation. Normal mitral valve. Trivial mitral valve regurgitation. Pulmonary valve not well visualized. Normal pulmonary valve systolic velocities. Trivial pulmonary valve regurgitation. Normal tricuspid valve. Trivial tricuspid valve regurgitation. OTHER ECHO FINDINGS:Normal inferior vena cava size with normal inspiratory collapse (>50%). Normal mid ascending aorta diameter of 35 mm. Upper limit of normal of the mid ascending aorta, for age,sex and BSA is 44 mm. Abdominal aorta not visualized. Imaging inadequate for detection of atrial level shunt by color flow imaging. No intracardiac mass or thrombus, but the left atrial appendage cannot be visualized adequately with transthoracic echo to exclude thrombus in this location. No pericardial effusion. Prominent epicardial fat layer. Attempts were made to optimize the echocardiographic images and two or more left ventricular segments were not visualized adequately to evaluate cardiac structure. The patient's current allergies and medications have been screened. Intravenous Definity ultrasound enhancement agent(s) administered to enhance endocardial border definition. Imaging enhancement agent administered per Echocardiography Contrast Administration Protocol Reference Document [id number] Rev 11/04/2021. Patient met an inclusion criterion and did not have contraindications in screening sections. For the complete report, see the Order-Level Documents. CT Chest Angiogram and Pulmonary Arteries with IV Contrast Final Result 1. Positive for acute pulmonary embolism. 2. Signs of right ventricular dysfunction are absent. Critical result reported to JOSEP LOMAX on 08/08/2024 5:47 AM via [facility] secure chat US Gallbladder and or Biliary Ducts Final Result Somewhat limited visualization as above, with findings equivocal for acute cholecystitis. IR Percutaneous Cholecystostomy Tube Exchange (Results Pending) CURRENT MEDICATIONS Scheduled Meds: acetaminophen, 1,000 mg, oral, TID apixaban, 10 mg, oral, BID Followed by [START ON 08/19/2024] apixaban, 5 mg, oral, BID aspirin, 81 mg, oral, Daily atorvastatin, 40 mg, oral, Daily at bedtime bacitracin, 1 Application, topical, BID baclofen, 10 mg, oral, BID calcium citrate-vitamin D3, 1 tablet, oral, Daily with morning meal cefTRIAXone, 2 g, intravenous, Daily clotrimazole, 1 Application, topical, BID latanoprost, 1 drop, both eyes, Daily at bedtime lisinopriL, 40 mg, oral, Daily metoprolol succinate, 100 mg, oral, Daily NIFEdipine XL, 90 mg, oral, Daily nystatin, 1 Application, topical, BID pantoprazole, 40 mg, oral, BID before morning and evening meals sennosides-docusate sodium, 1 tablet, oral, BID sodium chloride, 10 mL, intra-catheter, Daily sodium chloride, 3 mL, intravenous, Q12H BERONICA Continuous Infusions: PRN Meds: bisacodyL diclofenac sodium diphenhydrAMINE heparin (porcine) OR heparin (porcine) HYDROmorphone ipratropium-albuteroL melatonin naloxone ondansetron ODT polyethylene glycol sennosides-docusate sodium simethicone sodium chloride sodium chloride sodium chloride sodium chloride MEDICATION CHANGE SUMMARY: New bisacodyL suppository 10 mg (Dulcolax) calcium citrate-vitamin D3 315 mg-5 mcg (200 Unit) per tablet 1 tablet (Citracal + D3) heparin (porcine) 1,000 unit/mL injection 4,600 Units OR heparin (porcine) 1,000 unit/mL injection 9,300 Units heparin (porcine) 100 Units/mL in NaCl 0.45% 250 mL infusion ipratropium-albuteroL 0.5-2.5 mg/3 mL nebulizer solution 3 mL (DuoNeb) ipratropium-albuteroL 0.5-2.5 mg/3 mL nebulizer solution 3 mL (DuoNeb) NaCl 0.9% infusion Pharmacy General Consult sodium chloride 0.9 % injection 10 mL sodium chloride 0.9 % injection 10 mL sodium chloride 0.9 % injection 3 mL sodium chloride 0.9 % injection 3 mL Changed acetaminophen tablet 1,000 mg (TylenoL) - Frequency changed from 4 times daily to 3 times daily. bacitracin 500 unit/gram ointment 1 Application - Unable to compare doses due to different strengths. latanoprost 0.005 % ophthalmic solution 1 drop (Xalatan) - Frequency changed from Daily to Dailyat bedtime. melatonin tablet 4.5 mg - Dose changed from 5 mg to 4.5 mg. ondansetron ODT disintegrating tablet 4 mg (Zofran-ODT) - Medication details are different. sennosides-docusate sodium (SENOKOT-S) 8.6-50 mg per tablet Similar Orders sennosides-docusate sodium 8.6-50 mg per tablet 1 tablet (Senokot-S) - 1 tablet, oral, 2 times daily PRN, constipation, Starting on Mon08/08/24 at 0318 sennosides-docusate sodium 8.6-50 mg per tablet 1 tablet (Senokot-S) - 1 tablet, oral, 2 times daily, First dose on Mon08/08/24 at 0900Do not give if patient has diarrhea. simethicone chewable tablet 80 mg - Order can't be discretely compared. Stopped albuterol 90 mcg/actuation inhaler calcium carbonate (TUMS) 500 mg (200 mg calcium) chewable tablet cholecalciferol 25 mcg (1,000 unit) tablet furosemide (LASIX) 20 mg tablet furosemide (Lasix) 40 mg tablet lisinopriL (PRINIVIL,ZESTRIL) 40 mg tablet metoprolol succinate (TOPROL-XL) 100 mg 24 hr tablet NIFEdipine XL (PROCARDIA XL) 90 mg 24 hr tablet potassium chloride (KLOR-CON SPRINKLE) 10 mEq ER sprinkle capsule ASSESSMENT AND PLAN Mr. Ramirez is hospitalized on [facility] for evaluation and management of: Embolus Pulmonary (HCC) Hospital day: 8d 13h #Acute Cholecystitis Summary: Post-procedure day 4 after percutaneous cholecystostomy. No increased abdominal pain, nausea, or vomiting. HIDA scan confirmed acute cholecystitis with cystic duct obstruction. High surgicalrisk precludes cholecystectomy. Management Plan: Flush catheter with 10 mL normal saline daily while inpatient; reduce to as- needed flushing upon discharge unless concerning signs arise (e.g., fever, worsening RUQ pain, or no catheter output). Change dressing every other day or more frequently if soiled. DME for dressing supplies ordered; family to product picker supplies. Follow up with General Surgery for elective cholecystectomy evaluation. Routine exchange of cholecystostomy tube in 3 months if not surgically managed sooner. Completed Zosyn on 08/13/2024, with no additional antibiotics anticipated. Monitor for signs of infection or occlusion. #Hemobilia Summary: Cholecystostomy output of 120 mL hemobilia without clots. Baseline hemoglobin decreased from 13.3 to 11.2, with overall stability. Management Plan: Trend hemoglobin levels. If hemoglobin declines further, consider stopping anticoagulation and placing IVC filter. Continue to monitor in the background. #Pulmonary Embolism Summary: Subsegmental PE identified on imaging, unlikely to fully explain hypoxia. Patient anticoagulated. Management Plan: Discontinue heparin and initiate apixaban ON 08/12/2024 Monitor oxygenation; currently on room air. #Acute Hypoxic Respiratory Failure Summary: Multifactorial (sepsis, PE, MS progression). SpO2 improved on supplemental oxygen. Management Plan: Maintain supplemental oxygen as needed; currently on room air. Continue DuoNeb every 6 hours. Reassess oxygen requirements frequently. #Severe Sepsis #Acute Kidney Injury (resolved) Summary: Likely multifactorial (sepsis, hypoxia, possible contrast nephropathy). Creatinine returned to normal (08/11/2024). Management Plan: Continue monitoring renal function. Avoid further contrast exposure. #Hepatic and Renal Lesions Summary: Stable hepatic hemangioma and indeterminate renal lesion. Management Plan: Defer MRI abdomen until renal function stabilizes. #Hypertension Summary: BP soft (102/83); antihypertensives held. Management Plan: Resume antihypertensives (nifedipine, Toprol, lisinopril, Lasix) when BP stabilizes. #Multiple Sclerosis Summary: Chronic condition, currently stable. Management Plan: Continue baclofen as prescribed for spasticity. #Hyperlipidemia Summary: Chronic condition. Management Plan: Continue atorvastatin 40 mg daily. #GI Prophylaxis Plan: Continue pantoprazole 40 mg BID. #Bilateral Lower Limb Cellulitis Summary: Bilateral erythema and localized temperature increase below the knee. Management Plan: Discontinued Zosyn; initiated ceftriaxone. Monitor for clinical improvement. Consider adding vancomycin if no improvement. ANTICOAGULANTS/DVT PROPHYLAXIS: AntiCoag AntiPlatelet Meds IP/OP Heparins Refills Start End heparin (porcine) 1,000 unit/mL injection 4,600 Units -- 08/09/2024 -- 40 Units/kg (4,600 Units), intravenous, As needed Linked Group 1: Placed in Or Linked Group heparin (porcine) 1,000 unit/mL injection 9,300 Units -- 08/09/2024 -- 80 Units/kg (9,300 Units), intravenous, As needed Linked Group 1: Placed in Or Linked Group Direct Factor Xa Inhibitors Refills Start End apixaban (Eliquis) 5 mg tablet 0 08/16/2024 11/17/2024 Sig - Route: Take 2 tablets (10 mg total) by mouth 2 (two) times a day for 3 days, THEN 1 tablet (5mg total) 2 (two) times a day. - oral Renewals Renewal requests to authorizing provider (Yasmani Shea M.D.) <b>prohibited</b> apixaban tablet 10 mg (Eliquis) -- 08/12/2024 08/19/2024 10 mg, oral, 2 times daily Linked Group 2: Placed in Followed by Linked Group apixaban tablet 5 mg (Eliquis) -- 08/19/2024 -- 5 mg, oral, 2 times daily Linked Group 2: Placed in Followed by Linked Group apixaban (Eliquis) 5 mg tablet (Discontinued) 0 08/08/2024 08/16/2024 Sig - Route: Take 2 tablets (10 mg total) by mouth 2 (two) times a day for 7 days, THEN 1 tablet (5mg total) 2 (two) times a day for 23 days. - oral Notes to Pharmacy: Please do not FILL. For caban check only Reason for Discontinue: Stop Taking at Discharge Renewals Renewal requests to authorizing provider (Vish Nicole M.D., Ph.D.) <b>prohibited</b> Lines, Drains, and Airways Drain Duration Indwelling Urinary Catheter 8d 8h Biliary Tube Cholecystostomy 12 Fr. RUQ 7d 1h Peripheral IV Duration Peripheral IV 08/08/24 20 G Anterior;Left;Lower Forearm 8d 13h Peripheral IV 08/08/24 Anterior;Distal;Left;Lower Forearm 8d 13h Peripheral IV 08/14/24 22 G Posterior;Right Hand 1d 21h Wound Duration Wound 08/10/24 Friction Injury Buttocks Right 5d 22h DIET: Current Diet Adult Diet Regular starting at 08/09 1853 INFUSIONS: Last BM Date: 08/13/24 Code status: DNR/DNI Stable to discharge criteria (not yet met): Acute care monitoring needs HIM Provider Care Team: TOMASA WESLEY Indwelling Urinary Catheter (Active) Placement Date/Time: 08/08/24521 Greco Catheter Present?: Yes, Indication:Chronic Indwelling Plan for Removal: No plans for removal Discharge Information: Case reviewed with: Patient. Projected disposition: Uncertain. ADMINISTRATIVE BILLING: Total time spent 40 minutes, 20 minutes spent in counseling and coordination of care. TER * Yasmani Shea M.D. - 08/15/2024 1:30 PM CST Images from the original note were not included. Internal Medicine Progress Note Date of Admission: 08/08/2024 LOS: 7 days SUBJECTIVE CHIEF COMPLAINT Embolus Pulmonary (HCC) INTERVAL UPDATES Ren Gray Ramirez was seen and examined today. Patient doing well this morning. Denies any new symptoms. He does have ongoing dyspnea. We discussed that his pulmonary embolism may be causing dyspnea. Intake/Output Summary (Last 24 hours) at 08/15/2024 1330 Last data filed at 08/15/2024 0617 Gross per 24 hour Intake 900 ml Output 3300 ml Net -2400 ml OBJECTIVE BP 159/59 Pulse 79 Temp 36.4 ??C (Temporal) Resp 24 Ht 185.4 cm Wt 109 kg SpO2 93% BMI 31.67 kg/m?? PHYSICAL EXAM General: Alert and Orientated HEENT: Normocephalic, atraumatic. No scleral icterus. Oral mucosa moist. Neck: Supple. No lymphadenopathy. Cardiovascular: Normal S1/S2. No murmurs. Lungs: Clear to Auscultation Abdomen: Soft, nontender, nondistended. Positive bowel sounds. Extremities: No bilateral lower extremity edema. Neurological: Grossly intact. Admission Weight: 116 kg Current Weight: 109 kg Intake/Output Summary (Last 24 hours) at 08/15/2024 1330 Last data filed at 08/15/2024 0617 Gross per 24 hour Intake 900 ml Output 3300 ml Net -2400 ml DIAGNOSTICS Results from last 7 days Lab Units 08/15/24 0532 08/14/24 0556 08/13/24 0511 WBC x10(9)/L 10.1* 10.0* 7.6 HEMOGLOBIN g/dL 12.7* 13.2 11.2* HEMATOCRIT % 38.8 40.6 35.0* PLATELETS AUTO x10(9)/L 155 166 141 Results from last 7 days Lab Units 08/15/24 0532 08/14/24 0556 08/13/24 0511 SODIUM P mmol/L 136 137 140 CHLORIDE P mmol/L 104 104 108* BUN P mg/dL 10 9 14 CREATININE mg/dL 0.74 0.71* 0.84 CALCIUM P mg/dL 8.7* 8.6* 8.4* Results from last 7 days Lab Units 08/15/24 0532 08/14/24 0556 08/13/24 0511 08/12/24 0541 08/11/24 0600 08/10/24 0506 08/09/24 0629 ALBUMIN P g/dL 2.9* 2.9* 2.8* 2.8* 2.7* 2.6* 2.6* AST P U/L 19 23 37 50* 83* 105* 174* ALT P U/L 24 32 42 49 75* 83* 102* ALK PHOS P U/L 136* 154* 160* 190* 233* 209* 243* BILIRUBIN DIRECT P mg/dL 0.2 0.2 0.1 0.2 0.2 0.3 0.5* BILIRUBIN TOTAL P mg/dL 0.4 0.3 0.3 0.3 0.4 0.4 0.8 MICRO Results for orders placed or performed during the hospital encounter of 08/08/24 (from the past 2 weeks) Bacterial Culture, Aerobic + Susceptibility, Urine Specimen: Urine, Indwelling Catheter Specimen Source Site: Urine Result Value Urine Culture Urogenital microbiota, susceptibilities not performed per laboratory criteria. Bacteria / Bautista Culture, Blood #1 Specimen: Blood, Peripheral Draw Specimen Source Site: Blood Result Value Bacteria/Bautista Culture, Blood No growth after 5 day/s of incubation. Bacteria / Bautista Culture, Blood #2 Specimen: Blood, Peripheral Draw Specimen Source Site: Blood Result Value Bacteria/Bautista Culture, Blood No growth after 5 day/s of incubation. Bacterial Culture, Aerobic + Susceptibility Specimen: Gallbladder; Fluid Specimen Source Site: Fluid Result Value Bacterial Culture, Aerobic + Susc No growth after 5 days of incubation. Gram Stain Specimen: Gallbladder; Fluid Specimen Source Site: Fluid Result Value Gram Stain No organisms seen. White blood cells, Few. RADIOLOGY IR Percutaneous Cholecystostomy Tube Placement Final Result 1. Insertion of an intercostal transhepatic [address] [place] Abdomen Pelvis with IV Contrast Final Result Findings compatible with cholecystitis. Diffuse gallbladder wall thickening, adjacent fat stranding, and mild gallbladder distention. NM Hepatobiliary with Pharmacologic Intervention Final Result 1. No evidence of the cholecystitis or biliary obstruction. 2. Photopenic area at the dome on the right lobe of liver, recommend liver ultrasound or hepatic CTfor further evaluation. Echo Transthoracic (TTE) Final Result Echo performed at the patient's bedside. LEFT VENTRICLE:Normal left ventricular chamber size. Concentric remodeling (increased wall thickness to cavity ratio). Calculated 2-D biplane volumetric left ventricular ejection fraction of 68%. No regional wall motion abnormalities. Flattening of the ventricular septum. Grade 1/3 left ventricular diastolic dysfunction, consistent with low to normalleft ventricular filling pressure. RIGHT VENTRICLE:Moderate-severely enlarged right ventricular chamber size. Mild- moderately reduced right ventricular systolic function. Estimated right ventricular systolic pressure 45 mmHg (right atrial pressure of 5 mmHg). ATRIA:Normal left atrial size by visual estimate. Enlarged right atrial size. CARDIAC VALVES:Trileaflet aortic valve. Mildly thickened aortic valve. No aortic valve regurgitation. Normal mitral valve. Trivial mitral valve regurgitation. Pulmonary valve not well visualized. Normal pulmonary valve systolic velocities. Trivial pulmonary valve regurgitation. Normal tricuspid valve. Trivial tricuspid valve regurgitation. OTHER ECHO FINDINGS:Normal inferior vena cava size with normal inspiratory collapse (>50%). Normal mid ascending aorta diameter of 35 mm. Upper limit of normal of the mid ascending aorta, for age,sex and BSA is 44 mm. Abdominal aorta not visualized. Imaging inadequate for detection of atrial level shunt by color flow imaging. No intracardiac mass or thrombus, but the left atrial appendage cannot be visualized adequately with transthoracic echo to exclude thrombus in this location. No pericardial effusion. Prominent epicardial fat layer. Attempts were made to optimize the echocardiographic images and two or more left ventricular segments were not visualized adequately to evaluate cardiac structure. The patient's current allergies and medications have been screened. Intravenous Definity ultrasound enhancement agent(s) administered to enhance endocardial border definition. Imaging enhancement agent administered per Echocardiography Contrast Administration Protocol Reference Document [id number] Rev 11/04/2021. Patient met an inclusion criterion and did not have contraindications in screening sections. For the complete report, see the Order-Level Documents. CT Chest Angiogram and Pulmonary Arteries with IV Contrast Final Result 1. Positive for acute pulmonary embolism. 2. Signs of right ventricular dysfunction are absent. Critical result reported to JOSEP LOMAX on 08/08/2024 5:47 AM via [facility] secure chat US Gallbladder and or Biliary Ducts Final Result Somewhat limited visualization as above, with findings equivocal for acute cholecystitis. IR Percutaneous Cholecystostomy Tube Exchange (Results Pending) CURRENT MEDICATIONS Scheduled Meds: acetaminophen, 1,000 mg, oral, TID apixaban, 10 mg, oral, BID Followed by [START ON 08/19/2024] apixaban, 5 mg, oral, BID aspirin, 81 mg, oral, Daily atorvastatin, 40 mg, oral, Daily at bedtime bacitracin, 1 Application, topical, BID baclofen, 10 mg, oral, BID calcium citrate-vitamin D3, 1 tablet, oral, Daily with morning meal cefTRIAXone, 2 g, intravenous, Daily clotrimazole, 1 Application, topical, BID latanoprost, 1 drop, both eyes, Daily at bedtime lisinopriL, 40 mg, oral, Daily metoprolol succinate, 100 mg, oral, Daily NIFEdipine XL, 90 mg, oral, Daily nystatin, 1 Application, topical, BID pantoprazole, 40 mg, oral, BID before morning and evening meals sennosides-docusate sodium, 1 tablet, oral, BID sodium chloride, 10 mL, intra-catheter, Daily sodium chloride, 3 mL, intravenous, Q12H BERONICA Continuous Infusions: PRN Meds: bisacodyL diclofenac sodium diphenhydrAMINE heparin (porcine) OR heparin (porcine) HYDROmorphone ipratropium-albuteroL melatonin naloxone ondansetron ODT polyethylene glycol sennosides-docusate sodium simethicone sodium chloride sodium chloride sodium chloride sodium chloride MEDICATION CHANGE SUMMARY: New bisacodyL suppository 10 mg (Dulcolax) calcium citrate-vitamin D3 315 mg-5 mcg (200 Unit) per tablet 1 tablet (Citracal + D3) heparin (porcine) 1,000 unit/mL injection 4,600 Units OR heparin (porcine) 1,000 unit/mL injection 9,300 Units heparin (porcine) 100 Units/mL in NaCl 0.45% 250 mL infusion ipratropium-albuteroL 0.5-2.5 mg/3 mL nebulizer solution 3 mL (DuoNeb) ipratropium-albuteroL 0.5-2.5 mg/3 mL nebulizer solution 3 mL (DuoNeb) NaCl 0.9% infusion Pharmacy General Consult sodium chloride 0.9 % injection 10 mL sodium chloride 0.9 % injection 10 mL sodium chloride 0.9 % injection 3 mL sodium chloride 0.9 % injection 3 mL Changed acetaminophen tablet 1,000 mg (TylenoL) - Frequency changed from 4 times daily to 3 times daily. bacitracin 500 unit/gram ointment 1 Application - Unable to compare doses due to different strengths. latanoprost 0.005 % ophthalmic solution 1 drop (Xalatan) - Frequency changed from Daily to Dailyat bedtime. melatonin tablet 4.5 mg - Dose changed from 5 mg to 4.5 mg. ondansetron ODT disintegrating tablet 4 mg (Zofran-ODT) - Medication details are different. sennosides-docusate sodium (SENOKOT-S) 8.6-50 mg per tablet Similar Orders sennosides-docusate sodium 8.6-50 mg per tablet 1 tablet (Senokot-S) - 1 tablet, oral, 2 times daily PRN, constipation, Starting on Mon08/08/24 at 0318 sennosides-docusate sodium 8.6-50 mg per tablet 1 tablet (Senokot-S) - 1 tablet, oral, 2 times daily, First dose on Mon08/08/24 at 0900Do not give if patient has diarrhea. simethicone chewable tablet 80 mg - Order can't be discretely compared. Stopped albuterol 90 mcg/actuation inhaler calcium carbonate (TUMS) 500 mg (200 mg calcium) chewable tablet cholecalciferol 25 mcg (1,000 unit) tablet furosemide (LASIX) 20 mg tablet furosemide (Lasix) 40 mg tablet lisinopriL (PRINIVIL,ZESTRIL) 40 mg tablet metoprolol succinate (TOPROL-XL) 100 mg 24 hr tablet NIFEdipine XL (PROCARDIA XL) 90 mg 24 hr tablet potassium chloride (KLOR-CON SPRINKLE) 10 mEq ER sprinkle capsule ASSESSMENT AND PLAN Mr. Ramirez is hospitalized on [facility] for evaluation and management of: Embolus Pulmonary (HCC) Hospital day: 7d 12h #Acute Cholecystitis Summary: Post-procedure day 4 after percutaneous cholecystostomy. No increased abdominal pain, nausea, or vomiting. HIDA scan confirmed acute cholecystitis with cystic duct obstruction. High surgicalrisk precludes cholecystectomy. Management Plan: Flush catheter with 10 mL normal saline daily while inpatient; reduce to as- needed flushing upon discharge unless concerning signs arise (e.g., fever, worsening RUQ pain, or no catheter output). Change dressing every other day or more frequently if soiled. DME for dressing supplies ordered; family to product picker supplies. Follow up with General Surgery for elective cholecystectomy evaluation. Routine exchange of cholecystostomy tube in 3 months if not surgically managed sooner. Completed Zosyn on 08/13/2024, with no additional antibiotics anticipated. Monitor for signs of infection or occlusion. #Hemobilia Summary: Cholecystostomy output of 120 mL hemobilia without clots. Baseline hemoglobin decreased from 13.3 to 11.2, with overall stability. Management Plan: Trend hemoglobin levels. If hemoglobin declines further, consider stopping anticoagulation and placing IVC filter. Continue to monitor in the background. #Pulmonary Embolism Summary: Subsegmental PE identified on imaging, unlikely to fully explain hypoxia. Patient anticoagulated. Management Plan: Discontinue heparin and initiate apixaban ON 08/12/2024 Monitor oxygenation; currently on room air. #Acute Hypoxic Respiratory Failure Summary: Multifactorial (sepsis, PE, MS progression). SpO2 improved on supplemental oxygen. Management Plan: Maintain supplemental oxygen as needed; currently on room air. Continue DuoNeb every 6 hours. Reassess oxygen requirements frequently. #Severe Sepsis Summary: Likely secondary to acute cholecystitis and catheter-associated UTI. Management Plan: 08/13/2024. Deescalated to ceftriaxone Monitor clinical status and lactate trends (currently 1.2). Await blood and urine culture results. Hold antihypertensives due to soft BP. #Acute Kidney Injury (resolved) Summary: Likely multifactorial (sepsis, hypoxia, possible contrast nephropathy). Creatinine returned to normal (08/11/2024). Management Plan: Continue monitoring renal function. Avoid further contrast exposure. #Hepatic and Renal Lesions Summary: Stable hepatic hemangioma and indeterminate renal lesion. Management Plan: Defer MRI abdomen until renal function stabilizes. #Hypertension Summary: BP soft (102/83); antihypertensives held. Management Plan: Resume antihypertensives (nifedipine, Toprol, lisinopril, Lasix) when BP stabilizes. #Multiple Sclerosis Summary: Chronic condition, currently stable. Management Plan: Continue baclofen as prescribed for spasticity. #Hyperlipidemia Summary: Chronic condition. Management Plan: Continue atorvastatin 40 mg daily. #GI Prophylaxis Plan: Continue pantoprazole 40 mg BID. #Bilateral Lower Limb Cellulitis Summary: Bilateral erythema and localized temperature increase below the knee. Management Plan: Discontinued Zosyn; initiated ceftriaxone. Monitor for clinical improvement. Consider adding vancomycin if no improvement. ANTICOAGULANTS/DVT PROPHYLAXIS: AntiCoag AntiPlatelet Meds IP/OP Heparins Refills Start End heparin (porcine) 1,000 unit/mL injection 4,600 Units -- 08/09/2024 -- 40 Units/kg (4,600 Units), intravenous, As needed Linked Group 1: Placed in Or Linked Group heparin (porcine) 1,000 unit/mL injection 9,300 Units -- 08/09/2024 -- 80 Units/kg (9,300 Units), intravenous, As needed Linked Group 1: Placed in Or Linked Group Direct Factor Xa Inhibitors Refills Start End apixaban (Eliquis) 5 mg tablet 0 08/08/2024 09/07/2024 Sig - Route: Take 2 tablets (10 mg total) by mouth 2 (two) times a day for 7 days, THEN 1 tablet (5mg total) 2 (two) times a day for 23 days. - oral Notes to Pharmacy: Please do not FILL. For caban check only Renewals Renewal requests to authorizing provider (Vish Nicole M.D., Ph.D.) <b>prohibited</b> apixaban tablet 10 mg (Eliquis) -- 08/12/2024 08/19/2024 10 mg, oral, 2 times daily Linked Group 2: Placed in Followed by Linked Group apixaban tablet 5 mg (Eliquis) -- 08/19/2024 -- 5 mg, oral, 2 times daily Linked Group 2: Placed in Followed by Linked Group Lines, Drains, and Airways Drain Duration Indwelling Urinary Catheter 7d 8h Biliary Tube Cholecystostomy 12 Fr. RUQ 6d 0h Peripheral IV Duration Peripheral IV 08/08/24 20 G Anterior;Left;Lower Forearm 7d 12h Peripheral IV 08/08/24 Anterior;Distal;Left;Lower Forearm 7d 12h Peripheral IV 08/14/24 22 G Posterior;Right Hand 20h Wound Duration Wound 08/10/24 Friction Injury Buttocks Right 4d 22h DIET: Current Diet Adult Diet Regular starting at 08/09 1853 INFUSIONS: Last BM Date: 08/13/24 Code status: DNR/DNI Stable to discharge criteria (not yet met): Acute care monitoring needs HIM Provider Care Team: TOMASA WESLEY Indwelling Urinary Catheter (Active) Placement Date/Time: 08/08/24 05 Greco Catheter Present?: Yes, Indication:Chronic Indwelling Plan for Removal: No plans for removal Discharge Information: Case reviewed with: Patient. Projected disposition: Uncertain. ADMINISTRATIVE BILLING: Total time spent 40 minutes, 20 minutes spent in counseling and coordination of care. TER * Yasmani Shea M.D. - 08/14/2024 12:18 PM CST Images from the original note were not included. Internal Medicine Progress Note Date of Admission: 08/08/2024 LOS: 6 days SUBJECTIVE CHIEF COMPLAINT Embolus Pulmonary (HCC) INTERVAL UPDATES Ren Ramirez was seen and examined today. Patient doing well this morning. Denies any new symptoms. He does have ongoing dyspnea. We discussed that his pulmonary embolism may be causing dyspnea. Intake/Output Summary (Last 24 hours) at 08/14/2024 1218 Last data filed at 08/14/2024 0921 Gross per 24 hour Intake 944.76 ml Output 3910 ml Net -2965.24 ml OBJECTIVE BP 128/58 (BP Location: Left arm;Upper) Pulse 73 Temp 37 ??C (Temporal) Resp 18 Ht 185.4 cm Wt 109 kg SpO2 95% BMI 31.67 kg/m?? PHYSICAL EXAM General: Alert and Orientated HEENT: Normocephalic, atraumatic. No scleral icterus. Oral mucosa moist. Neck: Supple. No lymphadenopathy. Cardiovascular: Normal S1/S2. No murmurs. Lungs: Clear to Auscultation Abdomen: Soft, nontender, nondistended. Positive bowel sounds. Extremities: No bilateral lower extremity edema. Neurological: Grossly intact. Admission Weight: 116 kg Current Weight: 109 kg Intake/Output Summary (Last 24 hours) at 08/14/2024 1218 Last data filed at 08/14/2024 0921 Gross per 24 hour Intake 944.76 ml Output 3910 ml Net -2965.24 ml DIAGNOSTICS Results from last 7 days Lab Units 08/14/24 0556 08/13/24 0511 08/12/24 0541 WBC x10(9)/L 10.0* 7.6 7.3 HEMOGLOBIN g/dL 13.2 11.2* 10.5* HEMATOCRIT % 40.6 35.0* 33.0* PLATELETS AUTO x10(9)/L 166 141 145 Results from last 7 days Lab Units 08/14/24 0556 08/13/24 0511 08/12/24 0541 SODIUM P mmol/L 137 140 143 CHLORIDE P mmol/L 104 108* 112* BUN P mg/dL 9 14 16 CREATININE mg/dL 0.71* 0.84 1.13 CALCIUM P mg/dL 8.6* 8.4* 8.5* Results from last 7 days Lab Units 08/08/24 0417 TRPS TROPONIN T ng/L 54* Results from last 7 days Lab Units 08/14/24 0556 08/13/24 0511 08/12/24 0541 08/11/24 0600 08/10/24 0506 08/09/24 0629 08/08/24 0417 08/08/24 0417 ALBUMIN P g/dL 2.9* 2.8* 2.8* 2.7* 2.6* 2.6* -- 3.0* AST P U/L 23 37 50* 83* 105* 174* -- 34 ALT P U/L 32 42 49 75* 83* 102* -- 25 ALK PHOS P U/L 154* 160* 190* 233* 209* 243* -- 122 BILIRUBIN DIRECT P mg/dL 0.2 0.1 0.2 0.2 0.3 0.5* < > -- BILIRUBIN TOTAL P mg/dL 0.3 0.3 0.3 0.4 0.4 0.8 -- 0.9 < > = values in this interval not displayed. MICRO Results for orders placed or performed during the hospital encounter of 08/08/24 (from the past 2 weeks) Bacterial Culture, Aerobic + Susceptibility, Urine Specimen: Urine, Indwelling Catheter Specimen Source Site: Urine Result Value Urine Culture Urogenital microbiota, susceptibilities not performed per laboratory criteria. Bacteria / Bautista Culture, Blood #1 Specimen: Blood, Peripheral Draw Specimen Source Site: Blood Result Value Bacteria/Bautista Culture, Blood No growth after 5 day/s of incubation. Bacteria / Bautista Culture, Blood #2 Specimen: Blood, Peripheral Draw Specimen Source Site: Blood Result Value Bacteria/Bautista Culture, Blood No growth after 5 day/s of incubation. Bacterial Culture, Aerobic + Susceptibility Specimen: Gallbladder; Fluid Specimen Source Site: Fluid Result Value Bacterial Culture, Aerobic + Susc No growth after 5 days of incubation. Gram Stain Specimen: Gallbladder; Fluid Specimen Source Site: Fluid Result Value Gram Stain No organisms seen. White blood cells, Few. RADIOLOGY IR Percutaneous Cholecystostomy Tube Placement Final Result 1. Insertion of an intercostal transhepatic [address] Abdomen Pelvis with IV Contrast Final Result Findings compatible with cholecystitis. Diffuse gallbladder wall thickening, adjacent fat stranding, and mild gallbladder distention. NM Hepatobiliary with Pharmacologic Intervention Final Result 1. No evidence of the cholecystitis or biliary obstruction. 2. Photopenic area at the dome on the right lobe of liver, recommend liver ultrasound or hepatic CTfor further evaluation. Echo Transthoracic (TTE) Final Result Echo performed at the patient's bedside. LEFT VENTRICLE:Normal left ventricular chamber size. Concentric remodeling (increased wall thickness to cavity ratio). Calculated 2-D biplane volumetric left ventricular ejection fraction of 68%. No regional wall motion abnormalities. Flattening of the ventricular septum. Grade 1/3 left ventricular diastolic dysfunction, consistent with low to normalleft ventricular filling pressure. RIGHT VENTRICLE:Moderate-severely enlarged right ventricular chamber size. Mild- moderately reduced right ventricular systolic function. Estimated right ventricular systolic pressure 45 mmHg (right atrial pressure of 5 mmHg). ATRIA:Normal left atrial size by visual estimate. Enlarged right atrial size. CARDIAC VALVES:Trileaflet aortic valve. Mildly thickened aortic valve. No aortic valve regurgitation. Normal mitral valve. Trivial mitral valve regurgitation. Pulmonary valve not well visualized. Normal pulmonary valve systolic velocities. Trivial pulmonary valve regurgitation. Normal tricuspid valve. Trivial tricuspid valve regurgitation. OTHER ECHO FINDINGS:Normal inferior vena cava size with normal inspiratory collapse (>50%). Normal mid ascending aorta diameter of 35 mm. Upper limit of normal of the mid ascending aorta, for age,sex and BSA is 44 mm. Abdominal aorta not visualized. Imaging inadequate for detection of atrial level shunt by color flow imaging. No intracardiac mass or thrombus, but the left atrial appendage cannot be visualized adequately with transthoracic echo to exclude thrombus in this location. No pericardial effusion. Prominent epicardial fat layer. Attempts were made to optimize the echocardiographic images and two or more left ventricular segments were not visualized adequately to evaluate cardiac structure. The patient's current allergies and medications have been screened. Intravenous Definity ultrasound enhancement agent(s) administered to enhance endocardial border definition. Imaging enhancement agent administered per Echocardiography Contrast Administration Protocol Reference Document [id number] Rev 11/04/2021. Patient met an inclusion criterion and did not have contraindications in screening sections. For the complete report, see the Order-Level Documents. CT Chest Angiogram and Pulmonary Arteries with IV Contrast Final Result 1. Positive for acute pulmonary embolism. 2. Signs of right ventricular dysfunction are absent. Critical result reported to JOSEP LOMAX on 08/08/2024 5:47 AM via [employer] secure chat US Gallbladder and or Biliary Ducts Final Result Somewhat limited visualization as above, with findings equivocal for acute cholecystitis. IR Percutaneous Cholecystostomy Tube Exchange (Results Pending) CURRENT MEDICATIONS Scheduled Meds: acetaminophen, 1,000 mg, oral, TID apixaban, 10 mg, oral, BID Followed by [START ON 08/19/2024] apixaban, 5 mg, oral, BID aspirin, 81 mg, oral, Daily atorvastatin, 40 mg, oral, Daily at bedtime bacitracin, 1 Application, topical, BID baclofen, 10 mg, oral, BID calcium citrate-vitamin D3, 1 tablet, oral, Daily with morning meal cefTRIAXone, 2 g, intravenous, Daily clotrimazole, 1 Application, topical, BID latanoprost, 1 drop, both eyes, Daily at bedtime lisinopriL, 40 mg, oral, Daily metoprolol succinate, 100 mg, oral, Daily NIFEdipine XL, 90 mg, oral, Daily nystatin, 1 Application, topical, BID pantoprazole, 40 mg, oral, BID before morning and evening meals sennosides-docusate sodium, 1 tablet, oral, BID sodium chloride, 10 mL, intra-catheter, Daily sodium chloride, 3 mL, intravenous, Q12H BERONICA Continuous Infusions: PRN Meds: bisacodyL diclofenac sodium heparin (porcine) OR heparin (porcine) HYDROmorphone ipratropium-albuteroL melatonin naloxone ondansetron ODT polyethylene glycol sennosides-docusate sodium simethicone sodium chloride sodium chloride sodium chloride sodium chloride MEDICATION CHANGE SUMMARY: New bisacodyL suppository 10 mg (Dulcolax) calcium citrate-vitamin D3 315 mg-5 mcg (200 Unit) per tablet 1 tablet (Citracal + D3) heparin (porcine) 1,000 unit/mL injection 4,600 Units OR heparin (porcine) 1,000 unit/mL injection 9,300 Units heparin (porcine) 100 Units/mL in NaCl 0.45% 250 mL infusion ipratropium-albuteroL 0.5-2.5 mg/3 mL nebulizer solution 3 mL (DuoNeb) ipratropium-albuteroL 0.5-2.5 mg/3 mL nebulizer solution 3 mL (DuoNeb) NaCl 0.9% infusion Pharmacy General Consult sodium chloride 0.9 % injection 10 mL sodium chloride 0.9 % injection 10 mL sodium chloride 0.9 % injection 3 mL sodium chloride 0.9 % injection 3 mL Changed acetaminophen tablet 1,000 mg (TylenoL) - Frequency changed from 4 times daily to 3 times daily. bacitracin 500 unit/gram ointment 1 Application - Unable to compare doses due to different strengths. latanoprost 0.005 % ophthalmic solution 1 drop (Xalatan) - Frequency changed from Daily to Dailyat bedtime. melatonin tablet 4.5 mg - Dose changed from 5 mg to 4.5 mg. ondansetron ODT disintegrating tablet 4 mg (Zofran-ODT) - Medication details are different. sennosides-docusate sodium (SENOKOT-S) 8.6-50 mg per tablet Similar Orders sennosides-docusate sodium 8.6-50 mg per tablet 1 tablet (Senokot-S) - 1 tablet, oral, 2 times daily PRN, constipation, Starting on Jayla 08/08/24 at 0318 sennosides-docusate sodium 8.6-50 mg per tablet 1 tablet (Senokot-S) - 1 tablet, oral, 2 times daily, First dose on Jayla 08/08/24 at 0900Do not give if patient has diarrhea. simethicone chewable tablet 80 mg - Order can't be discretely compared. Stopped albuterol 90 mcg/actuation inhaler calcium carbonate (TUMS) 500 mg (200 mg calcium) chewable tablet cholecalciferol 25 mcg (1,000 unit) tablet furosemide (LASIX) 20 mg tablet furosemide (Lasix) 40 mg tablet lisinopriL (PRINIVIL,ZESTRIL) 40 mg tablet metoprolol succinate (TOPROL-XL) 100 mg 24 hr tablet NIFEdipine XL (PROCARDIA XL) 90 mg 24 hr tablet potassium chloride (KLOR-CON SPRINKLE) 10 mEq ER sprinkle capsule ASSESSMENT AND PLAN Mr. Ramirez is hospitalized on [facility] for evaluation and management of: Embolus Pulmonary (HCC) Hospital day: 6d 11h #Acute Cholecystitis Summary: Post-procedure day 4 after percutaneous cholecystostomy. No increased abdominal pain, nausea, or vomiting. HIDA scan confirmed acute cholecystitis with cystic duct obstruction. High surgicalrisk precludes cholecystectomy. Management Plan: Flush catheter with 10 mL normal saline daily while inpatient; reduce to as- needed flushing upon discharge unless concerning signs arise (e.g., fever, worsening RUQ pain, or no catheter output). Change dressing every other day or more frequently if soiled. DME for dressing supplies ordered; family to product picker supplies. Follow up with General Surgery for elective cholecystectomy evaluation. Routine exchange of cholecystostomy tube in 3 months if not surgically managed sooner. Completed Zosyn on 08/13/2024, with no additional antibiotics anticipated. Monitor for signs of infection or occlusion. #Hemobilia Summary: Cholecystostomy output of 120 mL hemobilia without clots. Baseline hemoglobin decreased from 13.3 to 11.2, with overall stability. Management Plan: Trend hemoglobin levels. If hemoglobin declines further, consider stopping anticoagulation and placing IVC filter. Continue to monitor in the background. #Pulmonary Embolism Summary: Subsegmental PE identified on imaging, unlikely to fully explain hypoxia. Patient anticoagulated. Management Plan: Discontinue heparin and initiate apixaban ON 08/12/2024 Monitor oxygenation; currently on room air. #Acute Hypoxic Respiratory Failure Summary: Multifactorial (sepsis, PE, MS progression). SpO2 improved on supplemental oxygen. Management Plan: Maintain supplemental oxygen as needed; currently on room air. Continue DuoNeb every 6 hours. Reassess oxygen requirements frequently. #Severe Sepsis Summary: Likely secondary to acute cholecystitis and catheter-associated UTI. Management Plan: 08/13/2024. Deescalated to ceftriaxone Monitor clinical status and lactate trends (currently 1.2). Await blood and urine culture results. Hold antihypertensives due to soft BP. #Acute Kidney Injury (resolved) Summary: Likely multifactorial (sepsis, hypoxia, possible contrast nephropathy). Creatinine returned to normal (08/11/2024). Management Plan: Continue monitoring renal function. Avoid further contrast exposure. #Hepatic and Renal Lesions Summary: Stable hepatic hemangioma and indeterminate renal lesion. Management Plan: Defer MRI abdomen until renal function stabilizes. #Hypertension Summary: BP soft (102/83); antihypertensives held. Management Plan: Resume antihypertensives (nifedipine, Toprol, lisinopril, Lasix) when BP stabilizes. #Multiple Sclerosis Summary: Chronic condition, currently stable. Management Plan: Continue baclofen as prescribed for spasticity. #Hyperlipidemia Summary: Chronic condition. Management Plan: Continue atorvastatin 40 mg daily. #GI Prophylaxis Plan: Continue pantoprazole 40 mg BID. #Bilateral Lower Limb Cellulitis Summary: Bilateral erythema and localized temperature increase below the knee. Management Plan: Discontinued Zosyn; initiated ceftriaxone. Monitor for clinical improvement. Consider adding vancomycin if no improvement. ANTICOAGULANTS/DVT PROPHYLAXIS: AntiCoag AntiPlatelet Meds IP/OP Heparins Refills Start End heparin (porcine) 1,000 unit/mL injection 4,600 Units -- 08/09/2024 -- 40 Units/kg (4,600 Units), intravenous, As needed Linked Group 1: Placed in Or Linked Group heparin (porcine) 1,000 unit/mL injection 9,300 Units -- 08/09/2024 -- 80 Units/kg (9,300 Units), intravenous, As needed Linked Group 1: Placed in Or Linked Group Direct Factor Xa Inhibitors Refills Start End apixaban (Eliquis) 5 mg tablet 0 08/08/2024 09/07/2024 Sig - Route: Take 2 tablets (10 mg total) by mouth 2 (two) times a day for 7 days, THEN 1 tablet (5mg total) 2 (two) times a day for 23 days. - oral Notes to Pharmacy: Please do not FILL. For caban check only Renewals Renewal requests to authorizing provider (Vish Nicole M.D., Ph.D.) <b>prohibited</b> apixaban tablet 10 mg (Eliquis) -- 08/12/2024 08/19/2024 10 mg, oral, 2 times daily Linked Group 2: Placed in Followed by Linked Group apixaban tablet 5 mg (Eliquis) -- 08/19/2024 -- 5 mg, oral, 2 times daily Linked Group 2: Placed in Followed by Linked Group Lines, Drains, and Airways Drain Duration Indwelling Urinary Catheter 6d 6h Biliary Tube Cholecystostomy 12 Fr. RUQ 4d 23h Peripheral IV Duration Peripheral IV 08/08/24 20 G Anterior;Left;Lower Forearm 6d 11h Peripheral IV 08/08/24 Anterior;Distal;Left;Lower Forearm 6d 11h Peripheral IV 08/13/24 22 G Right Forearm 23h Wound Duration Wound 08/10/24 Friction Injury Buttocks Right 3d 20h DIET: Current Diet Adult Diet Regular starting at 08/09 1854 INFUSIONS: Last BM Date: 08/13/24 Code status: DNR/DNI Stable to discharge criteria (not yet met): Acute care monitoring needs HIM Provider Care Team: TOMASA WESLEY Indwelling Urinary Catheter (Active) Placement Date/Time: 08/08/24521 Greco Catheter Present?: Yes, Indication:Chronic Indwelling Plan for Removal: No plans for removal Discharge Information: Case reviewed with: Patient. Projected disposition: Uncertain. ADMINISTRATIVE BILLING: Total time spent 40 minutes, 20 minutes spent in counseling and coordination of care. TER * Tiny Lees RDN, VARGHESE - 08/14/2024 7:16 AM CST Rescreened patient for nutrition risk. Current Diet Adult Diet Regular starting at 08/09 1853 Nutritional Risk: low risk Adequate oral intake (minimal meals recorded but per RN notes pt eating adequately and is ordering good portion meals in [place]), no significant changes in weight (highly variable this admission on bed scales), functioning bowels (last noted yesterday), and no stage III, IV or unstageable pressure ulcers noted (or reported). Will follow patient progress per nutrition assessment guidelines. Wt Readings from Last 6 Encounters: 08/14/24 109 kg 01/18/23 114 kg 12/19/22 112 kg 11/14/22 116 kg 11/12/22 119 kg 10/19/22 121 kg TER * Vish Nicole M.D., Ph.D. - 08/13/2024 2:51 PM CST Images from the original note were not included. Internal Medicine Progress Note Date of Admission: 08/08/2024 LOS: 5 days SUBJECTIVE CHIEF COMPLAINT Embolus Pulmonary (HCC) INTERVAL UPDATES Ren Ramirez was seen and examined today. Patient doing well this morning. Denies any new symptoms. Intake/Output Summary (Last 24 hours) at 08/13/2024 1451 Last data filed at 08/13/2024 1411 Gross per 24 hour Intake 1334.76 ml Output 3965 ml Net -2630.24 ml OBJECTIVE BP (!) 186/80 (BP Location: Right arm;Upper) Pulse 69 Temp 36.7 ??C (Temporal) Resp 18 Ht 185.4 cm Wt 119 kg SpO2 92% BMI 34.73 kg/m?? PHYSICAL EXAM General: Alert and Orientated HEENT: Normocephalic, atraumatic. No scleral icterus. Oral mucosa moist. Neck: Supple. No lymphadenopathy. Cardiovascular: Normal S1/S2. No murmurs. Lungs: Clear to Auscultation Abdomen: Soft, nontender, nondistended. Positive bowel sounds. Extremities: No bilateral lower extremity edema. Neurological: Grossly intact. Admission Weight: 116 kg Current Weight: 119 kg Intake/Output Summary (Last 24 hours) at 08/13/2024 1451 Last data filed at 08/13/2024 1411 Gross per 24 hour Intake 1334.76 ml Output 3965 ml Net -2630.24 ml DIAGNOSTICS Results from last 7 days Lab Units 08/13/24 0511 08/12/24 0541 08/11/24 0600 WBC x10(9)/L 7.6 7.3 7.2 HEMOGLOBIN g/dL 11.2* 10.5* 11.0* HEMATOCRIT % 35.0* 33.0* 34.6* PLATELETS AUTO x10(9)/L 141 145 141 Results from last 7 days Lab Units 08/13/24 0511 08/12/24 0541 08/11/24 0600 SODIUM P mmol/L 140 143 143 CHLORIDE P mmol/L 108* 112* 110* BUN P mg/dL 14 16 22 CREATININE mg/dL 0.84 1.13 1.27 CALCIUM P mg/dL 8.4* 8.5* 8.5* Results from last 7 days Lab Units 08/08/24 0417 TRPS TROPONIN T ng/L 54* Results from last 7 days Lab Units 08/13/24 0511 08/12/24 0541 08/11/24 0600 08/10/24 0506 08/09/24 0629 08/08/24 0417 08/08/24 0417 ALBUMIN P g/dL 2.8* 2.8* 2.7* 2.6* 2.6* -- 3.0* AST P U/L 37 50* 83* 105* 174* -- 34 ALT P U/L 42 49 75* 83* 102* -- 25 ALK PHOS P U/L 160* 190* 233* 209* 243* -- 122 BILIRUBIN DIRECT P mg/dL 0.1 0.2 0.2 0.3 0.5* < > -- BILIRUBIN TOTAL P mg/dL 0.3 0.3 0.4 0.4 0.8 -- 0.9 < > = values in this interval not displayed. MICRO Results for orders placed or performed during the hospital encounter of 08/08/24 (from the past 2 weeks) Bacterial Culture, Aerobic + Susceptibility, Urine Specimen: Urine, Indwelling Catheter Specimen Source Site: Urine Result Value Urine Culture Urogenital microbiota, susceptibilities not performed per laboratory criteria. Bacteria / Bautista Culture, Blood #1 Specimen: Blood, Peripheral Draw Specimen Source Site: Blood Result Value Bacteria/Bautista Culture, Blood No growth after 5 day/s of incubation. Bacteria / Bautista Culture, Blood #2 Specimen: Blood, Peripheral Draw Specimen Source Site: Blood Result Value Bacteria/Bautista Culture, Blood No growth after 5 day/s of incubation. Gram Stain Specimen: Gallbladder; Fluid Specimen Source Site: Fluid Result Value Gram Stain No organisms seen. White blood cells, Few. RADIOLOGY IR Percutaneous Cholecystostomy Tube Placement Final Result 1. Insertion of an intercostal transhepatic [address] Abdomen Pelvis with IV Contrast Final Result Findings compatible with cholecystitis. Diffuse gallbladder wall thickening, adjacent fat stranding, and mild gallbladder distention. NM Hepatobiliary with Pharmacologic Intervention Final Result 1. No evidence of the cholecystitis or biliary obstruction. 2. Photopenic area at the dome on the right lobe of liver, recommend liver ultrasound or hepatic CTfor further evaluation. Echo Transthoracic (TTE) Final Result Echo performed at the patient's bedside. LEFT VENTRICLE:Normal left ventricular chamber size. Concentric remodeling (increased wall thickness to cavity ratio). Calculated 2-D biplane volumetric left ventricular ejection fraction of 68%. No regional wall motion abnormalities. Flattening of the ventricular septum. Grade 1/3 left ventricular diastolic dysfunction, consistent with low to normalleft ventricular filling pressure. RIGHT VENTRICLE:Moderate-severely enlarged right ventricular chamber size. Mild- moderately reduced right ventricular systolic function. Estimated right ventricular systolic pressure 45 mmHg (right atrial pressure of 5 mmHg). ATRIA:Normal left atrial size by visual estimate. Enlarged right atrial size. CARDIAC VALVES:Trileaflet aortic valve. Mildly thickened aortic valve. No aortic valve regurgitation. Normal mitral valve. Trivial mitral valve regurgitation. Pulmonary valve not well visualized. Normal pulmonary valve systolic velocities. Trivial pulmonary valve regurgitation. Normal tricuspid valve. Trivial tricuspid valve regurgitation. OTHER ECHO FINDINGS:Normal inferior vena cava size with normal inspiratory collapse (>50%). Normal mid ascending aorta diameter of 35 mm. Upper limit of normal of the mid ascending aorta, for age,sex and BSA is 44 mm. Abdominal aorta not visualized. Imaging inadequate for detection of atrial level shunt by color flow imaging. No intracardiac mass or thrombus, but the left atrial appendage cannot be visualized adequately with transthoracic echo to exclude thrombus in this location. No pericardial effusion. Prominent epicardial fat layer. Attempts were made to optimize the echocardiographic images and two or more left ventricular segments were not visualized adequately to evaluate cardiac structure. The patient's current allergies and medications have been screened. Intravenous Definity ultrasound enhancement agent(s) administered to enhance endocardial border definition. Imaging enhancement agent administered per Echocardiography Contrast Administration Protocol Reference Document [id number] Rev 11/04/2021. Patient met an inclusion criterion and did not have contraindications in screening sections. For the complete report, see the Order-Level Documents. CT Chest Angiogram and Pulmonary Arteries with IV Contrast Final Result 1. Positive for acute pulmonary embolism. 2. Signs of right ventricular dysfunction are absent. Critical result reported to JOSEP LOMAX on 08/08/2024 5:47 AM via [employer] secure chat US Gallbladder and or Biliary Ducts Final Result Somewhat limited visualization as above, with findings equivocal for acute cholecystitis. IR Percutaneous Cholecystostomy Tube Exchange (Results Pending) CURRENT MEDICATIONS Scheduled Meds: acetaminophen, 1,000 mg, oral, TID apixaban, 10 mg, oral, BID Followed by [START ON 08/19/2024] apixaban, 5 mg, oral, BID aspirin, 81 mg, oral, Daily atorvastatin, 40 mg, oral, Daily at bedtime bacitracin, 1 Application, topical, BID baclofen, 10 mg, oral, BID calcium citrate-vitamin D3, 1 tablet, oral, Daily with morning meal cefTRIAXone, 2 g, intravenous, Daily clotrimazole, 1 Application, topical, BID latanoprost, 1 drop, both eyes, Daily at bedtime lisinopriL, 40 mg, oral, Daily metoprolol succinate, 50 mg, oral, Daily NIFEdipine XL, 90 mg, oral, Daily nystatin, 1 Application, topical, BID pantoprazole, 40 mg, oral, BID before morning and evening meals sqhthfiqh-wzorog-eirslfysp, 1 packet, oral, Q4H While awake sennosides-docusate sodium, 1 tablet, oral, BID sodium chloride, 10 mL, intra-catheter, Daily sodium chloride, 3 mL, intravenous, Q12H BERONICA Continuous Infusions: PRN Meds: bisacodyL diclofenac sodium heparin (porcine) OR heparin (porcine) HYDROmorphone ipratropium-albuteroL melatonin naloxone ondansetron ODT polyethylene glycol sennosides-docusate sodium simethicone sodium chloride sodium chloride sodium chloride sodium chloride MEDICATION CHANGE SUMMARY: New bisacodyL suppository 10 mg (Dulcolax) calcium citrate-vitamin D3 315 mg-5 mcg (200 Unit) per tablet 1 tablet (Citracal + D3) heparin (porcine) 1,000 unit/mL injection 4,600 Units OR heparin (porcine) 1,000 unit/mL injection 9,300 Units heparin (porcine) 100 Units/mL in NaCl 0.45% 250 mL infusion ipratropium-albuteroL 0.5-2.5 mg/3 mL nebulizer solution 3 mL (DuoNeb) ipratropium-albuteroL 0.5-2.5 mg/3 mL nebulizer solution 3 mL (DuoNeb) NaCl 0.9% infusion Pharmacy General Consult sodium chloride 0.9 % injection 10 mL sodium chloride 0.9 % injection 10 mL sodium chloride 0.9 % injection 3 mL sodium chloride 0.9 % injection 3 mL Changed acetaminophen tablet 1,000 mg (TylenoL) - Frequency changed from 4 times daily to 3 times daily. bacitracin 500 unit/gram ointment 1 Application - Unable to compare doses due to different strengths. latanoprost 0.005 % ophthalmic solution 1 drop (Xalatan) - Frequency changed from Daily to Dailyat bedtime. melatonin tablet 4.5 mg - Dose changed from 5 mg to 4.5 mg. ondansetron ODT disintegrating tablet 4 mg (Zofran-ODT) - Medication details are different. sennosides-docusate sodium (SENOKOT-S) 8.6-50 mg per tablet Similar Orders sennosides-docusate sodium 8.6-50 mg per tablet 1 tablet (Senokot-S) - 1 tablet, oral, 2 times daily PRN, constipation, Starting on Mon08/08/24 at 0318 sennosides-docusate sodium 8.6-50 mg per tablet 1 tablet (Senokot-S) - 1 tablet, oral, 2 times daily, First dose on Mon08/08/24 at 0900Do not give if patient has diarrhea. simethicone chewable tablet 80 mg - Order can't be discretely compared. Stopped albuterol 90 mcg/actuation inhaler calcium carbonate (TUMS) 500 mg (200 mg calcium) chewable tablet cholecalciferol 25 mcg (1,000 unit) tablet furosemide (LASIX) 20 mg tablet furosemide (Lasix) 40 mg tablet lisinopriL (PRINIVIL,ZESTRIL) 40 mg tablet metoprolol succinate (TOPROL-XL) 100 mg 24 hr tablet NIFEdipine XL (PROCARDIA XL) 90 mg 24 hr tablet potassium chloride (KLOR-CON SPRINKLE) 10 mEq ER sprinkle capsule ASSESSMENT AND PLAN Mr. Ramirez is hospitalized on [facility] for evaluation and management of: Embolus Pulmonary (HCC) Hospital day: 5d 14h #Acute Cholecystitis Summary: Post-procedure day 4 after percutaneous cholecystostomy. No increased abdominal pain, nausea, or vomiting. HIDA scan confirmed acute cholecystitis with cystic duct obstruction. High surgicalrisk precludes cholecystectomy. Management Plan: Flush catheter with 10 mL normal saline daily while inpatient; reduce to as- needed flushing upon discharge unless concerning signs arise (e.g., fever, worsening RUQ pain, or no catheter output). Change dressing every other day or more frequently if soiled. DME for dressing supplies ordered; family to product picker supplies. Follow up with General Surgery for elective cholecystectomy evaluation. Routine exchange of cholecystostomy tube in 3 months if not surgically managed sooner. Continue Zosyn until 08/13/2024, with no additional antibiotics anticipated. Monitor for signs of infection or occlusion. #Hemobilia Summary: Cholecystostomy output of 120 mL hemobilia without clots. Baseline hemoglobin decreased from 13.3 to 11.2, with overall stability. Management Plan: Trend hemoglobin levels. If hemoglobin declines further, consider stopping anticoagulation and placing IVC filter. Continue to monitor in the background. #Pulmonary Embolism Summary: Subsegmental PE identified on imaging, unlikely to fully explain hypoxia. Patient anticoagulated. Management Plan: Discontinue heparin and initiate apixaban ON 08/12/2024 Monitor oxygenation; currently on room air. #Acute Hypoxic Respiratory Failure Summary: Multifactorial (sepsis, PE, MS progression). SpO2 improved on supplemental oxygen. Management Plan: Maintain supplemental oxygen as needed; currently on room air. Continue DuoNeb every 6 hours. Reassess oxygen requirements frequently. #Severe Sepsis Summary: Likely secondary to acute cholecystitis and catheter-associated UTI. Management Plan: 08/13/2024. Deescalated to ceftriaxone Monitor clinical status and lactate trends (currently 1.2). Await blood and urine culture results. Hold antihypertensives due to soft BP. #Acute Kidney Injury (resolved) Summary: Likely multifactorial (sepsis, hypoxia, possible contrast nephropathy). Creatinine returned to normal (08/11/2024). Management Plan: Continue monitoring renal function. Avoid further contrast exposure. #Hepatic and Renal Lesions Summary: Stable hepatic hemangioma and indeterminate renal lesion. Management Plan: Defer MRI abdomen until renal function stabilizes. #Hypertension Summary: BP soft (102/83); antihypertensives held. Management Plan: Resume antihypertensives (nifedipine, Toprol, lisinopril, Lasix) when BP stabilizes. #Multiple Sclerosis Summary: Chronic condition, currently stable. Management Plan: Continue baclofen as prescribed for spasticity. #Hyperlipidemia Summary: Chronic condition. Management Plan: Continue atorvastatin 40 mg daily. #GI Prophylaxis Plan: Continue pantoprazole 40 mg BID. #Bilateral Lower Limb Cellulitis Summary: Bilateral erythema and localized temperature increase below the knee. Management Plan: Discontinued Zosyn; initiated ceftriaxone. Monitor for clinical improvement. Consider adding vancomycin if no improvement. ANTICOAGULANTS/DVT PROPHYLAXIS: AntiCoag AntiPlatelet Meds IP/OP Heparins Refills Start End heparin (porcine) 1,000 unit/mL injection 4,600 Units -- 08/09/2024 -- 40 Units/kg (4,600 Units), intravenous, As needed Linked Group 1: Placed in Or Linked Group heparin (porcine) 1,000 unit/mL injection 9,300 Units -- 08/09/2024 -- 80 Units/kg (9,300 Units), intravenous, As needed Linked Group 1: Placed in Or Linked Group heparin (porcine) 100 Units/mL in NaCl 0.45% 250 mL infusion () -- 08/09/2024 08/12/2024 0-30 Units/kg/hr (0-3,480 Units/hr), intravenous, Continuous @ 0-34.8 mL/hr, 25,000 Units in 250 mL Notes to Pharmacy: If baseline aPTT is >40 seconds with no explainable cause, the provider should consider immediate consult (via phone) with a licensed mental health counselor and order special coagulation lab testing, Prolonged Clot Time Profile ([facility]: [id number]). Direct Factor Xa Inhibitors Refills Start End apixaban (Eliquis) 5 mg tablet 0 08/08/2024 09/07/2024 Sig - Route: Take 2 tablets (10 mg total) by mouth 2 (two) times a day for 7 days, THEN 1 tablet (5mg total) 2 (two) times a day for 23 days. - oral Notes to Pharmacy: Please do not FILL. For caban check only Renewals Renewal requests to authorizing provider (Vish Nicole M.D., Ph.D.) <b>prohibited</b> apixaban tablet 10 mg (Eliquis) -- 08/12/2024 08/19/2024 10 mg, oral, 2 times daily Linked Group 2: Placed in Followed by Linked Group apixaban tablet 5 mg (Eliquis) -- 08/19/2024 -- 5 mg, oral, 2 times daily Linked Group 2: Placed in Followed by Linked Group Lines, Drains, and Airways Drain Duration Indwelling Urinary Catheter 5d 9h Biliary Tube Cholecystostomy 12 Fr. RUQ 4d 2h Peripheral IV Duration Peripheral IV 08/08/24 20 G Anterior;Left;Lower Forearm 5d 13h Peripheral IV 08/08/24 Anterior;Distal;Left;Lower Forearm 5d 13h Peripheral IV 08/13/24 22 G Right Forearm 1h Wound Duration Wound 08/10/24 Friction Injury Buttocks Right 2d 23h DIET: Current Diet Adult Diet Regular starting at 08/09 1853 INFUSIONS: Last BM Date: 08/10/24 Code status: DNR/DNI Stable to discharge criteria (not yet met): Acute care monitoring needs HIM Provider Care Team: TOMASA WESLEY Indwelling Urinary Catheter (Active) Placement Date/Time: 08/08/24 05 Greco Catheter Present?: Yes, Indication:Chronic Indwelling Plan for Removal: No plans for removal Discharge Information: Case reviewed with: Patient. Projected disposition: Uncertain. ADMINISTRATIVE BILLING: Total time spent 40 minutes, 20 minutes spent in counseling and coordination of care. TER * Rafael Cisse P.A.-C., P.A. - 08/13/2024 2:31 PM CST SUBJECTIVE Mr. Ren Ramirez has no complaints. He is post procedure day 4 after percutaneous cholecystostomy tube placement. Patient denies abdominal pain with the exception tenderness at tube insertionsite. Denies fever, chills, nausea, vomiting, and decreased appetite. I have reviewed the current medication list. OBJECTIVE Current Weight: 119 kg VITAL SIGNS Weight: 119 kg, BMI (Calculated): 34.7 kg/m??, Blood Pressure: (!) 186/80, Heart Rate: 71, Pulse Rate: 69, Resp Rate: 18, Temperature: 36.7 ??C, SpO2: 92 % Intake/Output Last 24 Hours: Intake/Output Summary (Last 24 hours) at 08/13/2024 1431 Last data filed at 08/13/2024 1411 Gross per 24 hour Intake 1334.76 ml Output 3965 ml Net -2630.24 ml Drains Intake/Output Last 24 Hours: Date 08/12/24 07 - 08/13/24 0659 08/13/24 07 - 08/14/24 0659 Shift 8534-6467 6015-5375 6637-0180 24 Hour Total 7877-1473 9324-2981 9936-9984 24 Hour Total INTAKE P.O. 200 270 200 670 680 680 Continuous Medications 232.8 232.8 184.8 184.8 Intermittent Medications 100 100 Shift Total(mL/kg) 532.8(4.2) 270(2.1) 200(1.7) 1002.8(8.4) 864.8(7.2) 864.8(7.2) OUTPUT Urine(mL/kg/hr) 850(0.8) 900(0.9) 1300(1.4) 3050(1.1) 1625 1625 Drains 10 80 30 120 30 30 Output (mL)- Drain (Biliary Tube Cholecystostomy 12 Fr. RUQ) 10 80 30 120 30 30 Shift Total(mL/kg) 860(6.8) 980(7.7) 1330(11.1) 3170(26.5) 1655(13.9) 1655(13.9) Weight (kg) 126.9 126.9 119.4 119.4 119.4 119.4 119.4 119.4 PHYSICAL EXAM General: Pleasant, no acute distress, resting comfortably in bed Neuro: Alert & cooperative, speech is clear Respiratory: Normal respiratory effort Cardiac: Regular rate and rhythm Abdomen: soft, nontender, hemobilia without clots output in drain DIAGNOSTICS Lab Results Component Value Date/Time HGB 11.2 (L) 08/13/2024 05:11 AM HGB 13.7 08/08/2024 04:17 AM HCT 35.0 (L) 08/13/2024 05:11 AM HCT 42.0 10/25/2021 03:21 PM PLT 141 08/13/2024 05:11 AM PLT 236 10/25/2021 03:21 PM INR 1.1 12/14/2022 05:23 AM APTT 32 08/08/2024 04:17 AM , Lab Results Component Value Date/Time ALBUMIN 2.8 (L) 08/13/2024 05:11 AM ALKPHOS 160 (H) 08/13/2024 05:11 AM ALT 42 08/13/2024 05:11 AM ALT 48 12/14/2022 05:23 AM AST 37 08/13/2024 05:11 AM AST 20 12/26/2016 03:56 AM BILIDIR 0.1 08/13/2024 05:11 AM BILITOT 0.3 08/13/2024 05:11 AM BUN 14 08/13/2024 05:11 AM CREATININE 0.84 08/13/2024 05:11 AM CREATJAFFE 0.7 12/29/2016 04:42 AM EGFRNONBLKAA 62 08/13/2021 08:29 AM EGFRNONBLKAA >60 08/18/2017 07:43 AM EGFR >90 08/13/2024 05:11 AM CRP 424.0 (H) 08/08/2024 04:17 AM TROPONINT 54 (H) 08/08/2024 04:17 AM IMAGING IR percutaneous cholecystostomy tube placement 08/09/2024 IMPRESSION: 1. Insertion of an intercostal transhepatic [address] abdomen pelvis with IV contrast 08/08/2024 IMPRESSION: Findings compatible with cholecystitis. Diffuse gallbladder wall thickening, adjacent fat stranding, and mild gallbladder distention. NM hepatobiliary 08/08/2024 IMPRESSION: 1. No evidence of the cholecystitis or biliary obstruction. 2. Photopenic area at the dome on the right lobe of liver, recommend liver ultrasound or hepatic CTfor further evaluation. Ultrasound gallbladder and/or biliary ducts 08/08/2024 IMPRESSION: Somewhat limited visualization as above, with findings equivocal for acute cholecystitis. ASSESSMENT / PLAN #1 Acute Cholecystitis Patient is post procedure day 4 after percutaneous cholecystostomy tube placement. He is toleratingthe tube well with out increased abdominal pain, nausea, or vomiting. Please flush catheter with 10 mL normal saline once daily while inpatient. Okay to reduce to as needed flushing upon discharge if fever, worsening RUQ pain or no catheter output concerning for catheter occlusion. Please change the dressing every other day, more frequently if the dressing is soiled. DME for dressing supplies has been placed. Patient/family to product picker DME supplies at a medical supply store. Follow up with general surgery for evaluation of potential candidacy for cholecystectomy. If cholecystostomy tube is still in place in 3 months, will plan for routine exchange with VIR. Order has been placed. #2 Hemobilia #3 Anemia Cholecystostomy drainage output: 120 mL hemobilia without clots. Baseline hemoglobin was 13.3 and is now currently 11.2. Hemoglobin overall stable with mild fluctuations over the last couple days. Will continue to trend hemoglobin at this time. If hemoglobin is downtrending, consider stopping anticoagulation and placing IVC filter. Will continue to follow in the background. Patient case and plan of care discussed in coordination with Dr. Nunn of [facility], [place]. Rafael Cisse P.A.-C. [facility]iology TER * Sumaya Garcia M.S., O.T. - 08/13/2024 8:57 AM CST Patient resides in a LTC facility, dependent at baseline with ADLs and mobility. No acute OT needs/concerns. OT will sign off. TER * Sofi Guillen P.T. - 08/13/2024 8:45 AM CST 08/13/24 0845 Reason Therapy Missed Reason Therapy Missed No visit this date PT orders received, chart reviewed, discussed with patient's RN and SW. Patient is from LTC, gets assist for all ADLs, and utilizes a ceiling lift for transfers. No acute PT issues identified, will sign off. Please re-consult us if acute needs arise. TER * Vish Nicole M.D., Ph.D. - 08/12/2024 3:44 PM CST Images from the original note were not included. Internal Medicine Progress Note Date of Admission: 08/08/2024 LOS: 4 days SUBJECTIVE CHIEF COMPLAINT Embolus Pulmonary (HCC) INTERVAL UPDATES Ren Ramirez was seen and examined today. Patient doing well this morning. Denies any new symptoms. Intake/Output Summary (Last 24 hours) at 08/12/2024 1544 Last data filed at 08/12/2024 1342 Gross per 24 hour Intake 1476.94 ml Output 1810 ml Net -333.06 ml OBJECTIVE BP (!) 172/65 (BP Location: Lower;Right arm) Pulse 68 Temp 36.4 ??C (Temporal) Resp 16 Ht 185.4 cm Wt 127 kg SpO2 92% BMI 36.91 kg/m?? PHYSICAL EXAM General: Alert and Orientated HEENT: Normocephalic, atraumatic. No scleral icterus. Oral mucosa moist. Neck: Supple. No lymphadenopathy. Cardiovascular: Normal S1/S2. No murmurs. Lungs: Clear to Auscultation Abdomen: Soft, nontender, nondistended. Positive bowel sounds. Extremities: No bilateral lower extremity edema. Neurological: Grossly intact. Admission Weight: 116 kg Current Weight: 127 kg Intake/Output Summary (Last 24 hours) at 08/12/2024 1544 Last data filed at 08/12/2024 1342 Gross per 24 hour Intake 1476.94 ml Output 1810 ml Net -333.06 ml DIAGNOSTICS Results from last 7 days Lab Units 08/12/24 0541 08/11/24 0600 08/10/24 0506 WBC x10(9)/L 7.3 7.2 9.8* HEMOGLOBIN g/dL 10.5* 11.0* 10.3* HEMATOCRIT % 33.0* 34.6* 32.8* PLATELETS AUTO x10(9)/L 145 141 159 Results from last 7 days Lab Units 08/12/24 0541 08/11/24 0600 08/10/24 0506 SODIUM P mmol/L 143 143 140 CHLORIDE P mmol/L 112* 110* 108* BUN P mg/dL 16 22 36* CREATININE mg/dL 1.13 1.27 2.29* CALCIUM P mg/dL 8.5* 8.5* 7.9* Results from last 7 days Lab Units 08/08/24 0417 TRPS TROPONIN T ng/L 54* Results from last 7 days Lab Units 08/12/24 0541 08/11/24 0600 08/10/24 0506 08/09/24 0629 08/08/24 0417 08/08/24 0417 ALBUMIN P g/dL 2.8* 2.7* 2.6* 2.6* -- 3.0* AST P U/L 50* 83* 105* 174* -- 34 ALT P U/L 49 75* 83* 102* -- 25 ALK PHOS P U/L 190* 233* 209* 243* -- 122 BILIRUBIN DIRECT P mg/dL 0.2 0.2 0.3 0.5* < > -- BILIRUBIN TOTAL P mg/dL 0.3 0.4 0.4 0.8 -- 0.9 < > = values in this interval not displayed. MICRO Results for orders placed or performed during the hospital encounter of 08/08/24 (from the past 2 weeks) Bacterial Culture, Aerobic + Susceptibility, Urine Specimen: Urine, Indwelling Catheter Specimen Source Site: Urine Result Value Urine Culture Urogenital microbiota, susceptibilities not performed per laboratory criteria. Gram Stain Specimen: Gallbladder; Fluid Specimen Source Site: Fluid Result Value Gram Stain No organisms seen. White blood cells, Few. RADIOLOGY IR Percutaneous Cholecystostomy Tube Placement Final Result 1. Insertion of an intercostal transhepatic [address] Abdomen Pelvis with IV Contrast Final Result Findings compatible with cholecystitis. Diffuse gallbladder wall thickening, adjacent fat stranding, and mild gallbladder distention. NM Hepatobiliary with Pharmacologic Intervention Final Result 1. No evidence of the cholecystitis or biliary obstruction. 2. Photopenic area at the dome on the right lobe of liver, recommend liver ultrasound or hepatic CTfor further evaluation. Echo Transthoracic (TTE) Final Result Echo performed at the patient's bedside. LEFT VENTRICLE:Normal left ventricular chamber size. Concentric remodeling (increased wall thickness to cavity ratio). Calculated 2-D biplane volumetric left ventricular ejection fraction of 68%. No regional wall motion abnormalities. Flattening of the ventricular septum. Grade 1/3 left ventricular diastolic dysfunction, consistent with low to normalleft ventricular filling pressure. RIGHT VENTRICLE:Moderate-severely enlarged right ventricular chamber size. Mild- moderately reduced right ventricular systolic function. Estimated right ventricular systolic pressure 45 mmHg (right atrial pressure of 5 mmHg). ATRIA:Normal left atrial size by visual estimate. Enlarged right atrial size. CARDIAC VALVES:Trileaflet aortic valve. Mildly thickened aortic valve. No aortic valve regurgitation. Normal mitral valve. Trivial mitral valve regurgitation. Pulmonary valve not well visualized. Normal pulmonary valve systolic velocities. Trivial pulmonary valve regurgitation. Normal tricuspid valve. Trivial tricuspid valve regurgitation. OTHER ECHO FINDINGS:Normal inferior vena cava size with normal inspiratory collapse (>50%). Normal mid ascending aorta diameter of 35 mm. Upper limit of normal of the mid ascending aorta, for age,sex and BSA is 44 mm. Abdominal aorta not visualized. Imaging inadequate for detection of atrial level shunt by color flow imaging. No intracardiac mass or thrombus, but the left atrial appendage cannot be visualized adequately with transthoracic echo to exclude thrombus in this location. No pericardial effusion. Prominent epicardial fat layer. Attempts were made to optimize the echocardiographic images and two or more left ventricular segments were not visualized adequately to evaluate cardiac structure. The patient's current allergies and medications have been screened. Intravenous Definity ultrasound enhancement agent(s) administered to enhance endocardial border definition. Imaging enhancement agent administered per Echocardiography Contrast Administration Protocol Reference Document [id number] Rev 11/04/2021. Patient met an inclusion criterion and did not have contraindications in screening sections. For the complete report, see the Order-Level Documents. CT Chest Angiogram and Pulmonary Arteries with IV Contrast Final Result 1. Positive for acute pulmonary embolism. 2. Signs of right ventricular dysfunction are absent. Critical result reported to JOSEP LOMAX on 08/08/2024 5:47 AM via [employer] secure chat US Gallbladder and or Biliary Ducts Final Result Somewhat limited visualization as above, with findings equivocal for acute cholecystitis. IR Percutaneous Cholecystostomy Tube Exchange (Results Pending) CURRENT MEDICATIONS Scheduled Meds: acetaminophen, 1,000 mg, oral, TID aspirin, 81 mg, oral, Daily atorvastatin, 40 mg, oral, Daily at bedtime bacitracin, 1 Application, topical, BID baclofen, 10 mg, oral, BID calcium citrate-vitamin D3, 1 tablet, oral, Daily with morning meal clotrimazole, 1 Application, topical, BID latanoprost, 1 drop, both eyes, Daily at bedtime lisinopriL, 40 mg, oral, Daily metoprolol succinate, 50 mg, oral, Daily nystatin, 1 Application, topical, BID pantoprazole, 40 mg, oral, BID before morning and evening meals piperacillin-tazobactam, 3.375 g, intravenous, Q6H BERONICA esorllisd-bacwhr-sgaaezyyp, 2 packet, oral, Q4H While awake sennosides-docusate sodium, 1 tablet, oral, BID sodium chloride, 10 mL, intra-catheter, Daily sodium chloride, 3 mL, intravenous, Q12H BERONICA Continuous Infusions: heparin (porcine) 100 Units/mL in NaCl 0.45% 250 mL infusion, 0-30 Units/kg/hr (Dosing Weight), Last Rate: 16 Units/kg/hr (08/12/24 1309) PRN Meds: bisacodyL diclofenac sodium heparin (porcine) OR heparin (porcine) HYDROmorphone ipratropium-albuteroL melatonin naloxone ondansetron ODT polyethylene glycol sennosides-docusate sodium simethicone sodium chloride sodium chloride sodium chloride sodium chloride MEDICATION CHANGE SUMMARY: New bisacodyL suppository 10 mg (Dulcolax) calcium citrate-vitamin D3 315 mg-5 mcg (200 Unit) per tablet 1 tablet (Citracal + D3) heparin (porcine) 1,000 unit/mL injection 4,600 Units OR heparin (porcine) 1,000 unit/mL injection 9,300 Units heparin (porcine) 100 Units/mL in NaCl 0.45% 250 mL infusion ipratropium-albuteroL 0.5-2.5 mg/3 mL nebulizer solution 3 mL (DuoNeb) ipratropium-albuteroL 0.5-2.5 mg/3 mL nebulizer solution 3 mL (DuoNeb) NaCl 0.9% infusion Pharmacy General Consult sodium chloride 0.9 % injection 10 mL sodium chloride 0.9 % injection 10 mL sodium chloride 0.9 % injection 3 mL sodium chloride 0.9 % injection 3 mL Changed acetaminophen tablet 1,000 mg (TylenoL) - Frequency changed from 4 times daily to 3 times daily. bacitracin 500 unit/gram ointment 1 Application - Unable to compare doses due to different strengths. latanoprost 0.005 % ophthalmic solution 1 drop (Xalatan) - Frequency changed from Daily to Dailyat bedtime. melatonin tablet 4.5 mg - Dose changed from 5 mg to 4.5 mg. ondansetron ODT disintegrating tablet 4 mg (Zofran-ODT) - Medication details are different. sennosides-docusate sodium (SENOKOT-S) 8.6-50 mg per tablet Similar Orders sennosides-docusate sodium 8.6-50 mg per tablet 1 tablet (Senokot-S) - 1 tablet, oral, 2 times daily PRN, constipation, Starting on Jayla 08/08/24 at 0318 sennosides-docusate sodium 8.6-50 mg per tablet 1 tablet (Senokot-S) - 1 tablet, oral, 2 times daily, First dose on Jayla 08/08/24 at 0900Do not give if patient has diarrhea. simethicone chewable tablet 80 mg - Order can't be discretely compared. Stopped albuterol 90 mcg/actuation inhaler calcium carbonate (TUMS) 500 mg (200 mg calcium) chewable tablet cholecalciferol 25 mcg (1,000 unit) tablet furosemide (LASIX) 20 mg tablet furosemide (Lasix) 40 mg tablet lisinopriL (PRINIVIL,ZESTRIL) 40 mg tablet metoprolol succinate (TOPROL-XL) 100 mg 24 hr tablet NIFEdipine XL (PROCARDIA XL) 90 mg 24 hr tablet potassium chloride (KLOR-CON SPRINKLE) 10 mEq ER sprinkle capsule ASSESSMENT AND PLAN Mr. Ramirez is hospitalized on [facility] for evaluation and management of: Embolus Pulmonary (HCC) Hospital day: 4d 15h #Pulmonary Embolism Summary: Subsegmental PE identified on imaging, unlikely to fully explain the degree of hypoxia. Patient is anticoagulated. Management Plan: Discontinued heparin started on apixaban from tonight Currently he is on room air #Acute Hypoxic Respiratory Failure Summary: Multifactorial etiology (sepsis, PE, MS progression). SpO2 improved on supplemental oxygen. Management Plan: Maintain supplemental oxygen (currently on room air). Continue DuoNeb Q6H. Reassess oxygen requirements frequently. #Acute Cholecystitis Summary: HIDA scan confirms acute cholecystitis with cystic duct obstruction. High surgical risk precludes cholecystectomy. Management Plan: Percutaneous cholecystostomy performed by IR; dark bilious fluid aspirated. We will continue Zosyn until 08/13/2024, most likely may not need any further antibiotics Daily saline flushes and dressing care for the cholecystostomy tube. Routine tube exchange in 3 months unless surgically managed sooner. Follow up with the General surgery as outpatient for a elective cholecystectomy Restart heparin 6 hours post-procedure. Monitor for signs of infection or occlusion. #Severe Sepsis Summary: Sepsis likely secondary to acute cholecystitis and catheter-associated UTI. Management Plan: Continue Zosyn. Monitor clinical status and trends in lactate (currently improved to 1.2). Await blood and urine culture results. Hold antihypertensives given soft BP. #Acute Kidney Injury, resolved Summary: Likely multifactorial (sepsis, hypoxia, and possible contrast nephropathy). Creatinine increased to 2.53. retuned to normal creatinine 08/11/2024 Management Plan: Monitor renal function and adjust medications as needed. Avoid further contrast until BISHOP resolves. #Hepatic and Renal Lesions Summary: Stable hepatic hemangioma and indeterminate renal lesion. Management Plan: Defer MRI until renal function improves. #Hypertension Summary: BP soft (102/83) with antihypertensives held. Management Plan: Resume antihypertensives (nifedipine, Toprol, lisinopril, Lasix) when BP stabilizes. #Multiple Sclerosis Summary: Chronic condition, currently stable. Management Plan: Continue baclofen for spasticity as prescribed. #Hyperlipidemia Summary: Chronic condition. Management Plan: Continue atorvastatin 40 mg daily. #GI Prophylaxis Plan: Continue pantoprazole 40 mg BID for gastric protection. Pending Diagnostic and Follow-Up Items HIDA Scan: Completed--confirmed acute cholecystitis. Cultures: Await results of blood and urine cultures. Renal Imaging: MRI abdomen deferred until resolution of BISHOP. Disposition: Remains inpatient; discharge timeline contingent on clinical progress. ANTICOAGULANTS/DVT PROPHYLAXIS: AntiCoag AntiPlatelet Meds IP/OP Heparins Refills Start End heparin (porcine) 1,000 unit/mL injection 4,600 Units -- 08/09/2024 -- 40 Units/kg (4,600 Units), intravenous, As needed Linked Group 1: Placed in Or Linked Group heparin (porcine) 1,000 unit/mL injection 9,300 Units -- 08/09/2024 -- 80 Units/kg (9,300 Units), intravenous, As needed Linked Group 1: Placed in Or Linked Group heparin (porcine) 100 Units/mL in NaCl 0.45% 250 mL infusion -- 08/09/2024 -- 0-30 Units/kg/hr (0-3,480 Units/hr), intravenous, Continuous @ 0-34.8 mL/hr, 25,000 Units in 250 mL Notes to Pharmacy: If baseline aPTT is >40 seconds with no explainable cause, the provider should consider immediate consult (via phone) with a licensed mental health counselor and order special coagulation lab testing, Prolonged Clot Time Profile ([facility]: [id number]). Direct Factor Xa Inhibitors Refills Start End apixaban (Eliquis) 5 mg tablet 0 08/08/2024 09/07/2024 Sig - Route: Take 2 tablets (10 mg total) by mouth 2 (two) times a day for 7 days, THEN 1 tablet (5mg total) 2 (two) times a day for 23 days. - oral Notes to Pharmacy: Please do not FILL. For caban check only Renewals Renewal requests to authorizing provider (Vish Nicole M.D., Ph.D.) <b>prohibited</b> Lines, Drains, and Airways Drain Duration Indwelling Urinary Catheter 4d 10h Biliary Tube Cholecystostomy 12 Fr. RUQ 3d 3h Peripheral IV Duration Peripheral IV 08/08/24 20 G Anterior;Left;Lower Forearm 4d 14h Peripheral IV 08/08/24 Anterior;Distal;Left;Lower Forearm 4d 14h Wound Duration Wound 08/10/24 Friction Injury Buttocks Right 2d 0h DIET: Current Diet Adult Diet Regular starting at 08/09 1854 INFUSIONS: heparin (porcine) 100 Units/mL in NaCl 0.45% 250 mL infusion, 0-30 Units/kg/hr (Dosing Weight), Last Rate: 16 Units/kg/hr (08/12/24 1309) Last BM Date: 08/10/24 Code status: DNR/DNI Stable to discharge criteria (not yet met): Acute care monitoring needs HIM Provider Care Team: TOMASA WESLEY Indwelling Urinary Catheter (Active) Placement Date/Time: 08/08/24 05 Greco Catheter Present?: Yes, Indication:Chronic Indwelling Plan for Removal: No plans for removal Discharge Information: Case reviewed with: Patient. Projected disposition: Uncertain. ADMINISTRATIVE BILLING: Total time spent 40 minutes, 20 minutes spent in counseling and coordination of care. TER * Rafael Cisse P.A.Samantha., P.A. - 08/12/2024 3:41 PM CST SUBJECTIVE Mr. Ren Ramirez has no complaints. He is post procedure day 3 after percutaneous cholecystostomy tube placement. Patient denies abdominal pain with the exception tenderness at tube insertionsite. Denies fever, chills, nausea, vomiting, and decreased appetite. I have reviewed the current medication list. OBJECTIVE Current Weight: 127 kg VITAL SIGNS Weight: 127 kg, BMI (Calculated): 36.9 kg/m??, Blood Pressure: (!) 172/65, Heart Rate: 68, Pulse Rate: 68, Resp Rate: 16, Temperature: 36.4 ??C, SpO2: 92 % Intake/Output Last 24 Hours: Intake/Output Summary (Last 24 hours) at 08/12/2024 1542 Last data filed at 08/12/2024 1342 Gross per 24 hour Intake 1476.94 ml Output 1810 ml Net -333.06 ml Drains Intake/Output Last 24 Hours: Date 08/11/24 1500 - 08/12/24 0659 08/12/24 0700 - 08/13/24 0659 Shift 9860-9486 2631-6389 24 Hour Total 0482-6756 6056-4285 1762-0655 24 Hour Total INTAKE P.O. 690 1300 200 200 Maintenance IV 1170 Continuous Medications 186.9 37.2 523.8 232.8 232.8 Intermittent Medications 10 20 550 100 100 Shift Total(mL/kg) 886.9(7.1) 57.2(0.5) 3543.8(27.9) 532.8(4.2) 532.8(4.2) OUTPUT Urine(mL/kg/hr) 600(0.6) 200(0.2) 2150(0.7) 850(0.8) 850 Drains 150 150 10 10 Output (mL)- Drain (Biliary Tube Cholecystostomy 12 Fr. RUQ) 150 150 10 10 Shift Total(mL/kg) 750(6) 200(1.6) 2300(18.1) 860(6.8) 860(6.8) Weight (kg) 125.2 126.9 126.9 126.9 126.9 126.9 126.9 PHYSICAL EXAM General: Pleasant, no acute distress, resting comfortably in bed Neuro: Alert & cooperative, speech is clear Respiratory: Normal respiratory effort Cardiac: Regular rate and rhythm Abdomen: soft, nontender, hemobilia without clots output in drain DIAGNOSTICS Lab Results Component Value Date/Time HGB 10.5 (L) 08/12/2024 05:41 AM HGB 13.7 08/08/2024 04:17 AM HCT 33.0 (L) 08/12/2024 05:41 AM HCT 42.0 10/25/2021 03:21 PM PLT 145 08/12/2024 05:41 AM PLT 236 10/25/2021 03:21 PM INR 1.1 12/14/2022 05:23 AM APTT 32 08/08/2024 04:17 AM , Lab Results Component Value Date/Time ALBUMIN 2.8 (L) 08/12/2024 05:41 AM ALKPHOS 190 (H) 08/12/2024 05:41 AM ALT 49 08/12/2024 05:41 AM ALT 48 12/14/2022 05:23 AM AST 50 (H) 08/12/2024 05:41 AM AST 20 12/26/2016 03:56 AM BILIDIR 0.2 08/12/2024 05:41 AM BILITOT 0.3 08/12/2024 05:41 AM BUN 16 08/12/2024 05:41 AM CREATININE 1.13 08/12/2024 05:41 AM CREATJAFFE 0.7 12/29/2016 04:42 AM EGFRNONBLKAA 62 08/13/2021 08:29 AM EGFRNONBLKAA >60 08/18/2017 07:43 AM EGFR 68 08/12/2024 05:41 AM CRP 424.0 (H) 08/08/2024 04:17 AM TROPONINT 54 (H) 08/08/2024 04:17 AM IMAGING IR percutaneous cholecystostomy tube placement 08/09/2024 IMPRESSION: 1. Insertion of an intercostal transhepatic [address] abdomen pelvis with IV contrast 08/08/2024 IMPRESSION: Findings compatible with cholecystitis. Diffuse gallbladder wall thickening, adjacent fat stranding, and mild gallbladder distention. NM hepatobiliary 08/08/2024 IMPRESSION: 1. No evidence of the cholecystitis or biliary obstruction. 2. Photopenic area at the dome on the right lobe of liver, recommend liver ultrasound or hepatic CTfor further evaluation. Ultrasound gallbladder and/or biliary ducts 08/08/2024 IMPRESSION: Somewhat limited visualization as above, with findings equivocal for acute cholecystitis. ASSESSMENT / PLAN #1 Acute Cholecystitis Patient is post procedure day 3 after percutaneous cholecystostomy tube placement. He is toleratingthe tube well with out increased abdominal pain, nausea, or vomiting. Please flush catheter with 10 mL normal saline once daily while inpatient. Okay to reduce to as needed flushing upon discharge if fever, worsening RUQ pain or no catheter output concerning for catheter occlusion. Please change the dressing every other day, more frequently if the dressing is soiled. DME for dressing supplies has been placed. Patient/family to product picker DME supplies at a medical supply store. Follow up with general surgery for evaluation of potential candidacy for cholecystectomy. If cholecystostomy tube is still in place in 3 months, will plan for routine exchange with VIR. Order has been placed. #2 Hemobilia #3 Anemia Cholecystostomy drainage output: 150 mL hemobilia without clots. Baseline hemoglobin was 13.3 and is now currently 10.5. Will continue to monitor hemobilia and trend hemoglobin at this time Patient case and plan of care discussed in coordination with Dr. Nunn of [facility], [place]. Sagan Dobie, P.A.-C. Vascular & Interventional Radiology TER TER * Jerri York R - 08/12/2024 3:36 PM CST SUBJECTIVE Patient is a 74 y.o. male who was admitted to [facility] 08/08/2024 due to Embolus Pulmonary (HCC) [I26.99]. A Psychosocial Assessment was completed by this travel writer on 08/09/2024. OBJECTIVE Problem List[1] ASSESSMENT / PLAN ASSESSMENT Orientation: Oriented to person, place and time Level of consciousness: Awake and alert Appearance: Age appearing Behavior observed: Calm and Interactive Memory: Good Estimated intellectual functioning: Average for developmental level Status of concentration: Good Cooperation: Cooperative Mood: Calm and Fine Affect: Within a normal range Speech: Within normal limits for volume, rate and tone. Thought process: Logical and goal-directed Thought content, auditory/visual hallucinations and/or delusions: No abnormality noted Judgement: Good Insight: Intact Motivation for treatment: Adequate Safety: No risk identified INTERVENTION This travel writer was present for interdisciplinary team rounds with the provider and bedside nurse. Patient stated he plans to return to [facility] at time of discharge from the hospital. Social work offered to call his daughter and provide her updates. Patient was agreeable. Phone call made to patient's daughter, Malika to provide updates and to inquire of any questions or concerns. Malika stated that patient had previously liked his facility and does not know where else he would be able to go. She knew patient had previously stated he was unhappy at his facility and wanting to move to a different facility. She stated I think he secretly likes his facility. During interdisciplinary team rounds, patient stated he plans to return to his facility at time of discharge.This travel writer inquired of transportation, in which she stated they have a truck for his wheelchair. Stated they could product picker his wheelchair and come to the hospital to pick him up. Social work made phone call to [facility] to update of possible discharge tomorrow 08/13. No answer, social work to call back tomorrow. [facility] Admissions [phone] PLAN Anticipate patient to return to [facility] via daughter transport with his own wheelchair from facility. Social work/care management to contact facility and update. 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 - 08/11/2024 3:08 PM CST Images from the original note were not included. Internal Medicine Progress Note Date of Admission: 08/08/2024 LOS: 3 days SUBJECTIVE CHIEF COMPLAINT Embolus Pulmonary (HCC) INTERVAL UPDATES Ren Ramirez was seen and examined today. Patient doing well this morning. Denies any new symptoms. Intake/Output Summary (Last 24 hours) at 08/11/2024 1508 Last data filed at 08/11/2024 1410 Gross per 24 hour Intake 5738.42 ml Output 2500 ml Net 3238.42 ml OBJECTIVE BP (!) 164/66 (BP Location: Right arm;Upper, Patient Position: Semi-recumbent) Pulse 84 Temp 36.4 ??C (Temporal) Resp 20 Ht 185.4 cm Wt 125 kg SpO2 96% BMI 36.42 kg/m?? PHYSICAL EXAM General: Alert and Orientated HEENT: Normocephalic, atraumatic. No scleral icterus. Oral mucosa moist. Neck: Supple. No lymphadenopathy. Cardiovascular: Normal S1/S2. No murmurs. Lungs: Clear to Auscultation Abdomen: Soft, nontender, nondistended. Positive bowel sounds. Extremities: No bilateral lower extremity edema. Neurological: Grossly intact. Admission Weight: 116 kg Current Weight: 125 kg Intake/Output Summary (Last 24 hours) at 08/11/2024 1508 Last data filed at 08/11/2024 1410 Gross per 24 hour Intake 5738.42 ml Output 2500 ml Net 3238.42 ml DIAGNOSTICS Results from last 7 days Lab Units 08/11/24 0600 08/10/24 0506 08/09/24 0629 WBC x10(9)/L 7.2 9.8* 14.2* HEMOGLOBIN g/dL 11.0* 10.3* 12.5* HEMATOCRIT % 34.6* 32.8* 41.2 PLATELETS AUTO x10(9)/L 141 159 151 Results from last 7 days Lab Units 08/11/24 0600 08/10/24 0506 08/09/24 0629 SODIUM P mmol/L 143 140 137 CHLORIDE P mmol/L 110* 108* 102 BUN P mg/dL 22 36* 34* CREATININE mg/dL 1.27 2.29* 2.38* CALCIUM P mg/dL 8.5* 7.9* 8.4* Results from last 7 days Lab Units 08/08/24 0417 TRPS TROPONIN T ng/L 54* Results from last 7 days Lab Units 08/11/24 0600 08/10/24 0506 08/09/24 0629 08/08/24 0417 08/08/24 0417 ALBUMIN P g/dL 2.7* 2.6* 2.6* -- 3.0* AST P U/L 83* 105* 174* -- 34 ALT P U/L 75* 83* 102* -- 25 ALK PHOS P U/L 233* 209* 243* -- 122 BILIRUBIN DIRECT P mg/dL 0.2 0.3 0.5* < > -- BILIRUBIN TOTAL P mg/dL 0.4 0.4 0.8 -- 0.9 < > = values in this interval not displayed. MICRO Results for orders placed or performed during the hospital encounter of 08/08/24 (from the past 2 weeks) Bacterial Culture, Aerobic + Susceptibility, Urine Specimen: Urine, Indwelling Catheter Specimen Source Site: Urine Result Value Urine Culture Urogenital microbiota, susceptibilities not performed per laboratory criteria. Gram Stain Specimen: Gallbladder; Fluid Specimen Source Site: Fluid Result Value Gram Stain No organisms seen. White blood cells, Few. RADIOLOGY CT Abdomen Pelvis with IV Contrast Final Result Findings compatible with cholecystitis. Diffuse gallbladder wall thickening, adjacent fat stranding, and mild gallbladder distention. NM Hepatobiliary with Pharmacologic Intervention Final Result 1. No evidence of the cholecystitis or biliary obstruction. 2. Photopenic area at the dome on the right lobe of liver, recommend liver ultrasound or hepatic CTfor further evaluation. Echo Transthoracic (TTE) Final Result Echo performed at the patient's bedside. LEFT VENTRICLE:Normal left ventricular chamber size. Concentric remodeling (increased wall thickness to cavity ratio). Calculated 2-D biplane volumetric left ventricular ejection fraction of 68%. No regional wall motion abnormalities. Flattening of the ventricular septum. Grade 1/3 left ventricular diastolic dysfunction, consistent with low to normalleft ventricular filling pressure. RIGHT VENTRICLE:Moderate-severely enlarged right ventricular chamber size. Mild- moderately reduced right ventricular systolic function. Estimated right ventricular systolic pressure 45 mmHg (right atrial pressure of 5 mmHg). ATRIA:Normal left atrial size by visual estimate. Enlarged right atrial size. CARDIAC VALVES:Trileaflet aortic valve. Mildly thickened aortic valve. No aortic valve regurgitation. Normal mitral valve. Trivial mitral valve regurgitation. Pulmonary valve not well visualized. Normal pulmonary valve systolic velocities. Trivial pulmonary valve regurgitation. Normal tricuspid valve. Trivial tricuspid valve regurgitation. OTHER ECHO FINDINGS:Normal inferior vena cava size with normal inspiratory collapse (>50%). Normal mid ascending aorta diameter of 35 mm. Upper limit of normal of the mid ascending aorta, for age,sex and BSA is 44 mm. Abdominal aorta not visualized. Imaging inadequate for detection of atrial level shunt by color flow imaging. No intracardiac mass or thrombus, but the left atrial appendage cannot be visualized adequately with transthoracic echo to exclude thrombus in this location. No pericardial effusion. Prominent epicardial fat layer. Attempts were made to optimize the echocardiographic images and two or more left ventricular segments were not visualized adequately to evaluate cardiac structure. The patient's current allergies and medications have been screened. Intravenous Definity ultrasound enhancement agent(s) administered to enhance endocardial border definition. Imaging enhancement agent administered per Echocardiography Contrast Administration Protocol Reference Document [id number] Rev 11/04/2021. Patient met an inclusion criterion and did not have contraindications in screening sections. For the complete report, see the Order-Level Documents. CT Chest Angiogram and Pulmonary Arteries with IV Contrast Final Result 1. Positive for acute pulmonary embolism. 2. Signs of right ventricular dysfunction are absent. Critical result reported to JOSEP LOMAX on 08/08/2024 5:47 AM via [facility] secure chat US Gallbladder and or Biliary Ducts Final Result Somewhat limited visualization as above, with findings equivocal for acute cholecystitis. IR Percutaneous Cholecystostomy Tube Placement (Results Pending) CURRENT MEDICATIONS Scheduled Meds: acetaminophen, 1,000 mg, oral, TID aspirin, 81 mg, oral, Daily atorvastatin, 40 mg, oral, Daily at bedtime bacitracin, 1 Application, topical, BID baclofen, 10 mg, oral, BID calcium citrate-vitamin D3, 1 tablet, oral, Daily with morning meal clotrimazole, 1 Application, topical, BID latanoprost, 1 drop, both eyes, Daily at bedtime lisinopriL, 40 mg, oral, Daily metoprolol succinate, 50 mg, oral, Daily pantoprazole, 40 mg, oral, BID before morning and evening meals piperacillin-tazobactam, 2.25 g, intravenous, Q6H BERONICA sennosides-docusate sodium, 1 tablet, oral, BID sodium chloride, 10 mL, intra-catheter, Daily sodium chloride, 3 mL, intravenous, Q12H BERONICA Continuous Infusions: heparin (porcine) 100 Units/mL in NaCl 0.45% 250 mL infusion, 0-30 Units/kg/hr (Dosing Weight), Last Rate: 16 Units/kg/hr (08/11/24 1454) PRN Meds: bisacodyL diclofenac sodium heparin (porcine) OR heparin (porcine) HYDROmorphone ipratropium-albuteroL ketorolac melatonin naloxone ondansetron ODT polyethylene glycol sennosides-docusate sodium simethicone sodium chloride sodium chloride sodium chloride sodium chloride MEDICATION CHANGE SUMMARY: New bisacodyL suppository 10 mg (Dulcolax) calcium citrate-vitamin D3 315 mg-5 mcg (200 Unit) per tablet 1 tablet (Citracal + D3) heparin (porcine) 1,000 unit/mL injection 4,600 Units OR heparin (porcine) 1,000 unit/mL injection 9,300 Units heparin (porcine) 100 Units/mL in NaCl 0.45% 250 mL infusion ipratropium-albuteroL 0.5-2.5 mg/3 mL nebulizer solution 3 mL (DuoNeb) ipratropium-albuteroL 0.5-2.5 mg/3 mL nebulizer solution 3 mL (DuoNeb) NaCl 0.9% infusion Pharmacy General Consult sodium chloride 0.9 % injection 10 mL sodium chloride 0.9 % injection 10 mL sodium chloride 0.9 % injection 3 mL sodium chloride 0.9 % injection 3 mL Changed acetaminophen tablet 1,000 mg (TylenoL) - Frequency changed from 4 times daily to 3 times daily. bacitracin 500 unit/gram ointment 1 Application - Unable to compare doses due to different strengths. latanoprost 0.005 % ophthalmic solution 1 drop (Xalatan) - Frequency changed from Daily to Dailyat bedtime. melatonin tablet 4.5 mg - Dose changed from 5 mg to 4.5 mg. ondansetron ODT disintegrating tablet 4 mg (Zofran-ODT) - Medication details are different. sennosides-docusate sodium (SENOKOT-S) 8.6-50 mg per tablet Similar Orders sennosides-docusate sodium 8.6-50 mg per tablet 1 tablet (Senokot-S) - 1 tablet, oral, 2 times daily PRN, constipation, Starting on Mon08/08/24 at 0318 sennosides-docusate sodium 8.6-50 mg per tablet 1 tablet (Senokot-S) - 1 tablet, oral, 2 times daily, First dose on Mon08/08/24 at 0900Do not give if patient has diarrhea. simethicone chewable tablet 80 mg - Order can't be discretely compared. Stopped albuterol 90 mcg/actuation inhaler calcium carbonate (TUMS) 500 mg (200 mg calcium) chewable tablet cholecalciferol 25 mcg (1,000 unit) tablet furosemide (LASIX) 20 mg tablet furosemide (Lasix) 40 mg tablet lisinopriL (PRINIVIL,ZESTRIL) 40 mg tablet metoprolol succinate (TOPROL-XL) 100 mg 24 hr tablet NIFEdipine XL (PROCARDIA XL) 90 mg 24 hr tablet potassium chloride (KLOR-CON SPRINKLE) 10 mEq ER sprinkle capsule ASSESSMENT AND PLAN Mr. Ramirez is hospitalized on [facility] for evaluation and management of: Embolus Pulmonary (HCC) Hospital day: 3d 14h #Pulmonary Embolism Summary: Subsegmental PE identified on imaging, unlikely to fully explain the degree of hypoxia. Patient is anticoagulated. Management Plan: Continue heparin infusion; transition to apixaban upon discharge. Monitor for bleeding and respiratory status. Supplemental oxygen to maintain SpO2 > 92%. Consider hematology follow-up if indicated. #Acute Hypoxic Respiratory Failure Summary: Multifactorial etiology (sepsis, PE, MS progression). SpO2 improved on supplemental oxygen. Management Plan: Maintain supplemental oxygen (currently on 5L nasal cannula). Continue DuoNeb Q6H. Reassess oxygen requirements frequently. #Acute Cholecystitis Summary: HIDA scan confirms acute cholecystitis with cystic duct obstruction. High surgical risk precludes cholecystectomy. Management Plan: Percutaneous cholecystostomy performed by IR; dark bilious fluid aspirated. Continue Zosyn for broad-spectrum coverage. Daily saline flushes and dressing care for the cholecystostomy tube. Routine tube exchange in 3 months unless surgically managed sooner. Restart heparin 6 hours post-procedure. Monitor for signs of infection or occlusion. #Severe Sepsis Summary: Sepsis likely secondary to acute cholecystitis and catheter-associated UTI. Management Plan: Continue Zosyn. Monitor clinical status and trends in lactate (currently improved to 1.2). Await blood and urine culture results. Hold antihypertensives given soft BP. #Acute Kidney Injury, resolved Summary: Likely multifactorial (sepsis, hypoxia, and possible contrast nephropathy). Creatinine increased to 2.53. retuned to normal creatinine 08/11/2024 Management Plan: Monitor renal function and adjust medications as needed. Avoid further contrast until BISHOP resolves. #Hepatic and Renal Lesions Summary: Stable hepatic hemangioma and indeterminate renal lesion. Management Plan: Defer MRI until renal function improves. #Hypertension Summary: BP soft (102/83) with antihypertensives held. Management Plan: Resume antihypertensives (nifedipine, Toprol, lisinopril, Lasix) when BP stabilizes. #Multiple Sclerosis Summary: Chronic condition, currently stable. Management Plan: Continue baclofen for spasticity as prescribed. #Hyperlipidemia Summary: Chronic condition. Management Plan: Continue atorvastatin 40 mg daily. #GI Prophylaxis Plan: Continue pantoprazole 40 mg BID for gastric protection. Pending Diagnostic and Follow-Up Items HIDA Scan: Completed--confirmed acute cholecystitis. Cultures: Await results of blood and urine cultures. Renal Imaging: MRI abdomen deferred until resolution of BISHOP. Disposition: Remains inpatient; discharge timeline contingent on clinical progress. ANTICOAGULANTS/DVT PROPHYLAXIS: AntiCoag AntiPlatelet Meds IP/OP Heparins Refills Start End heparin (porcine) 1,000 unit/mL injection 4,600 Units -- 08/09/2024 -- 40 Units/kg (4,600 Units), intravenous, As needed Linked Group 1: Placed in Or Linked Group heparin (porcine) 1,000 unit/mL injection 9,300 Units -- 08/09/2024 -- 80 Units/kg (9,300 Units), intravenous, As needed Linked Group 1: Placed in Or Linked Group heparin (porcine) 100 Units/mL in NaCl 0.45% 250 mL infusion -- 08/09/2024 -- 0-30 Units/kg/hr (0-3,480 Units/hr), intravenous, Continuous @ 0-34.8 mL/hr, 25,000 Units in 250 mL Notes to Pharmacy: If baseline aPTT is >40 seconds with no explainable cause, the provider should consider immediate consult (via phone) with a licensed mental health counselor and order special coagulation lab testing, Prolonged Clot Time Profile ([facility]: [id number]). Direct Factor Xa Inhibitors Refills Start End apixaban (Eliquis) 5 mg tablet 0 08/08/2024 09/07/2024 Sig - Route: Take 2 tablets (10 mg total) by mouth 2 (two) times a day for 7 days, THEN 1 tablet (5mg total) 2 (two) times a day for 23 days. - oral Notes to Pharmacy: Please do not FILL. For caban check only Renewals Renewal requests to authorizing provider (Vish Nicole M.D., Ph.D.) <b>prohibited</b> Lines, Drains, and Airways Drain Duration Indwelling Urinary Catheter 3d 9h Biliary Tube Cholecystostomy 12 Fr. RUQ 2d 2h Peripheral IV Duration Peripheral IV 08/08/24 20 G Anterior;Left;Lower Forearm 3d 14h Peripheral IV 08/08/24 Anterior;Distal;Left;Lower Forearm 3d 14h Wound Duration Wound 11/07/22 Toe (Comment) Anterior;Right 3 middle toes blisters 642d 20h Wound 11/07/22 Toe (Comment) Left;Medial blister 642d 20h Wound 11/25/22 Intertriginous Dermatitis Groin Bilateral 624d 20h Wound 12/15/22 Traumatic Toe (Comment) Bilateral 605d 6h Wound 12/15/22 Incision Thigh Anterior;Proximal;Right 605d 16h Wound 08/10/24 Buttocks 23h DIET: Current Diet Adult Diet Regular starting at 08/09 1853 INFUSIONS: heparin (porcine) 100 Units/mL in NaCl 0.45% 250 mL infusion, 0-30 Units/kg/hr (Dosing Weight), Last Rate: 16 Units/kg/hr (08/11/24 1454) Last BM Date: 08/10/24 Code status: DNR/DNI Stable to discharge criteria (not yet met): Acute care monitoring needs HIM Provider Care Team: TOMASA WESLEY Indwelling Urinary Catheter (Active) Placement Date/Time: 08/08/24521 Greco Catheter Present?: Yes, Indication:Chronic Indwelling Plan for Removal: No plans for removal Discharge Information: Case reviewed with: Patient. Projected disposition: Uncertain. ADMINISTRATIVE BILLING: Total time spent 40 minutes, 20 minutes spent in counseling and coordination of care. TER * Vish Nicole M.D., Ph.D. - 08/10/2024 3:27 PM CST Images from the original note were not included. Internal Medicine Progress Note Date of Admission: 08/08/2024 LOS: 2 days SUBJECTIVE CHIEF COMPLAINT Embolus Pulmonary (HCC) INTERVAL UPDATES Ren Ramirez was seen and examined today. Patient doing well this morning. Denies any new symptoms. Intake/Output Summary (Last 24 hours) at 08/10/2024 1527 Last data filed at 08/10/2024 1509 Gross per 24 hour Intake 2507.34 ml Output 900 ml Net 1607.34 ml OBJECTIVE BP (!) 135/50 Pulse 90 Temp 36.6 ??C Resp 20 Ht 185.4 cm Wt 127 kg SpO2 90% BMI 36.88kg/m?? PHYSICAL EXAM General: Alert and Orientated HEENT: Normocephalic, atraumatic. No scleral icterus. Oral mucosa moist. Neck: Supple. No lymphadenopathy. Cardiovascular: Normal S1/S2. No murmurs. Lungs: Clear to Auscultation Abdomen: Soft, nontender, nondistended. Positive bowel sounds. Extremities: No bilateral lower extremity edema. Neurological: Grossly intact. Admission Weight: 116 kg Current Weight: 127 kg Intake/Output Summary (Last 24 hours) at 08/10/2024 1527 Last data filed at 08/10/2024 1509 Gross per 24 hour Intake 2507.34 ml Output 900 ml Net 1607.34 ml DIAGNOSTICS Results from last 7 days Lab Units 08/10/24 0506 08/09/24 0629 08/08/247 WBC x10(9)/L 9.8* 14.2* 16.7* VBGRS HEMOGLOBIN g/dL -- -- 13.7 HEMOGLOBIN g/dL 10.3* 12.5* 13.3 HEMATOCRIT % 32.8* 41.2 41.4 PLATELETS AUTO x10(9)/L 159 151 172 Results from last 7 days Lab Units 08/10/24 0506 08/09/24 0629 08/08/24 0417 SODIUM P mmol/L 140 137 136 CHLORIDE P mmol/L 108* 102 102 BUN P mg/dL 36* 34* 23 CREATININE mg/dL 2.29* 2.38* 1.52* CALCIUM P mg/dL 7.9* 8.4* 8.8 Results from last 7 days Lab Units 08/08/24 041 TRPS TROPONIN T ng/L 54* Results from last 7 days Lab Units 08/10/24 0506 08/09/24 0629 08/08/24 041 ALBUMIN P g/dL 2.6* 2.6* 3.0* AST P U/L 105* 174* 34 ALT P U/L 83* 102* 25 ALK PHOS P U/L 209* 243* 122 BILIRUBIN DIRECT P mg/dL 0.3 0.5* -- BILIRUBIN TOTAL P mg/dL 0.4 0.8 0.9 MICRO Results for orders placed or performed during the hospital encounter of 08/08/24 (from the past 2 weeks) Bacterial Culture, Aerobic + Susceptibility, Urine Specimen: Urine, Indwelling Catheter Specimen Source Site: Urine Result Value Urine Culture Urogenital microbiota, susceptibilities not performed per laboratory criteria. Gram Stain Specimen: Gallbladder; Fluid Specimen Source Site: Fluid Result Value Gram Stain No organisms seen. White blood cells, Few. RADIOLOGY CT Abdomen Pelvis with IV Contrast Final Result Findings compatible with cholecystitis. Diffuse gallbladder wall thickening, adjacent fat stranding, and mild gallbladder distention. NM Hepatobiliary with Pharmacologic Intervention Final Result 1. No evidence of the cholecystitis or biliary obstruction. 2. Photopenic area at the dome on the right lobe of liver, recommend liver ultrasound or hepatic CTfor further evaluation. Echo Transthoracic (TTE) Final Result Echo performed at the patient's bedside. LEFT VENTRICLE:Normal left ventricular chamber size. Concentric remodeling (increased wall thickness to cavity ratio). Calculated 2-D biplane volumetric left ventricular ejection fraction of 68%. No regional wall motion abnormalities. Flattening of the ventricular septum. Grade 1/3 left ventricular diastolic dysfunction, consistent with low to normalleft ventricular filling pressure. RIGHT VENTRICLE:Moderate-severely enlarged right ventricular chamber size. Mild- moderately reduced right ventricular systolic function. Estimated right ventricular systolic pressure 45 mmHg (right atrial pressure of 5 mmHg). ATRIA:Normal left atrial size by visual estimate. Enlarged right atrial size. CARDIAC VALVES:Trileaflet aortic valve. Mildly thickened aortic valve. No aortic valve regurgitation. Normal mitral valve. Trivial mitral valve regurgitation. Pulmonary valve not well visualized. Normal pulmonary valve systolic velocities. Trivial pulmonary valve regurgitation. Normal tricuspid valve. Trivial tricuspid valve regurgitation. OTHER ECHO FINDINGS:Normal inferior vena cava size with normal inspiratory collapse (>50%). Normal mid ascending aorta diameter of 35 mm. Upper limit of normal of the mid ascending aorta, for age,sex and BSA is 44 mm. Abdominal aorta not visualized. Imaging inadequate for detection of atrial level shunt by color flow imaging. No intracardiac mass or thrombus, but the left atrial appendage cannot be visualized adequately with transthoracic echo to exclude thrombus in this location. No pericardial effusion. Prominent epicardial fat layer. Attempts were made to optimize the echocardiographic images and two or more left ventricular segments were not visualized adequately to evaluate cardiac structure. The patient's current allergies and medications have been screened. Intravenous Definity ultrasound enhancement agent(s) administered to enhance endocardial border definition. Imaging enhancement agent administered per Echocardiography Contrast Administration Protocol Reference Document [id number] Rev 11/04/2021. Patient met an inclusion criterion and did not have contraindications in screening sections. For the complete report, see the Order-Level Documents. CT Chest Angiogram and Pulmonary Arteries with IV Contrast Final Result 1. Positive for acute pulmonary embolism. 2. Signs of right ventricular dysfunction are absent. Critical result reported to JOSEP LOMAX on 08/08/2024 5:47 AM via [employer] secure chat US Gallbladder and or Biliary Ducts Final Result Somewhat limited visualization as above, with findings equivocal for acute cholecystitis. IR Percutaneous Cholecystostomy Tube Placement (Results Pending) CURRENT MEDICATIONS Scheduled Meds: acetaminophen, 1,000 mg, oral, TID aspirin, 81 mg, oral, Daily atorvastatin, 40 mg, oral, Daily at bedtime bacitracin, 1 Application, topical, BID baclofen, 10 mg, oral, BID calcium citrate-vitamin D3, 1 tablet, oral, Daily with morning meal clotrimazole, 1 Application, topical, BID latanoprost, 1 drop, both eyes, Daily at bedtime pantoprazole, 40 mg, oral, BID before morning and evening meals piperacillin-tazobactam, 2.25 g, intravenous, Q6H BERONICA sennosides-docusate sodium, 1 tablet, oral, BID sodium chloride, 10 mL, intra-catheter, Daily sodium chloride, 3 mL, intravenous, Q12H BERONICA Continuous Infusions: heparin (porcine) 100 Units/mL in NaCl 0.45% 250 mL infusion, 0-30 Units/kg/hr (Dosing Weight), Last Rate: 18 Units/kg/hr (08/10/24 1048) NaCl 0.9% infusion, 100 mL/hr, Last Rate: 100 mL/hr (08/10/24 1509) PRN Meds: bisacodyL diclofenac sodium heparin (porcine) OR heparin (porcine) HYDROmorphone ipratropium-albuteroL ketorolac melatonin naloxone ondansetron ODT polyethylene glycol sennosides-docusate sodium simethicone sodium chloride sodium chloride sodium chloride sodium chloride MEDICATION CHANGE SUMMARY: New bisacodyL suppository 10 mg (Dulcolax) calcium citrate-vitamin D3 315 mg-5 mcg (200 Unit) per tablet 1 tablet (Citracal + D3) heparin (porcine) 1,000 unit/mL injection 4,600 Units OR heparin (porcine) 1,000 unit/mL injection 9,300 Units heparin (porcine) 100 Units/mL in NaCl 0.45% 250 mL infusion ipratropium-albuteroL 0.5-2.5 mg/3 mL nebulizer solution 3 mL (DuoNeb) ipratropium-albuteroL 0.5-2.5 mg/3 mL nebulizer solution 3 mL (DuoNeb) NaCl 0.9% infusion Pharmacy General Consult sodium chloride 0.9 % injection 10 mL sodium chloride 0.9 % injection 10 mL sodium chloride 0.9 % injection 3 mL sodium chloride 0.9 % injection 3 mL Changed acetaminophen tablet 1,000 mg (TylenoL) - Frequency changed from 4 times daily to 3 times daily. bacitracin 500 unit/gram ointment 1 Application - Unable to compare doses due to different strengths. latanoprost 0.005 % ophthalmic solution 1 drop (Xalatan) - Frequency changed from Daily to Dailyat bedtime. melatonin tablet 4.5 mg - Dose changed from 5 mg to 4.5 mg. ondansetron ODT disintegrating tablet 4 mg (Zofran-ODT) - Medication details are different. sennosides-docusate sodium (SENOKOT-S) 8.6-50 mg per tablet Similar Orders sennosides-docusate sodium 8.6-50 mg per tablet 1 tablet (Senokot-S) - 1 tablet, oral, 2 times daily PRN, constipation, Starting on Jayla 08/08/24 at 0318 sennosides-docusate sodium 8.6-50 mg per tablet 1 tablet (Senokot-S) - 1 tablet, oral, 2 times daily, First dose on Mon08/08/24 at 0900Do not give if patient has diarrhea. simethicone chewable tablet 80 mg - Order can't be discretely compared. Stopped albuterol 90 mcg/actuation inhaler calcium carbonate (TUMS) 500 mg (200 mg calcium) chewable tablet cholecalciferol 25 mcg (1,000 unit) tablet furosemide (LASIX) 20 mg tablet furosemide (Lasix) 40 mg tablet lisinopriL (PRINIVIL,ZESTRIL) 40 mg tablet metoprolol succinate (TOPROL-XL) 100 mg 24 hr tablet NIFEdipine XL (PROCARDIA XL) 90 mg 24 hr tablet potassium chloride (KLOR-CON SPRINKLE) 10 mEq ER sprinkle capsule ASSESSMENT AND PLAN Mr. Ramirez is hospitalized on [facility] for evaluation and management of: Embolus Pulmonary (HCC) Hospital day: 2d 14h #Pulmonary Embolism Summary: Subsegmental PE identified on imaging, unlikely to fully explain the degree of hypoxia. Patient is anticoagulated. Management Plan: Continue heparin infusion; transition to apixaban upon discharge. Monitor for bleeding and respiratory status. Supplemental oxygen to maintain SpO2 > 92%. Consider hematology follow-up if indicated. #Acute Hypoxic Respiratory Failure Summary: Multifactorial etiology (sepsis, PE, MS progression). SpO2 improved on supplemental oxygen. Management Plan: Maintain supplemental oxygen (currently on 5L nasal cannula). Continue DuoNeb Q6H. Reassess oxygen requirements frequently. #Acute Cholecystitis Summary: HIDA scan confirms acute cholecystitis with cystic duct obstruction. High surgical risk precludes cholecystectomy. Management Plan: Percutaneous cholecystostomy performed by IR; dark bilious fluid aspirated. Continue Zosyn for broad-spectrum coverage. Daily saline flushes and dressing care for the cholecystostomy tube. Routine tube exchange in 3 months unless surgically managed sooner. Restart heparin 6 hours post-procedure. Monitor for signs of infection or occlusion. #Severe Sepsis Summary: Sepsis likely secondary to acute cholecystitis and catheter-associated UTI. Management Plan: Continue Zosyn. Monitor clinical status and trends in lactate (currently improved to 1.2). Await blood and urine culture results. Hold antihypertensives given soft BP. #Acute Kidney Injury Summary: Likely multifactorial (sepsis, hypoxia, and possible contrast nephropathy). Creatinine increased to 2.53. improved to 2.29 on 08/10/2024 Management Plan: Continue IV fluids (normal saline at 100 cc/hr). Administer Mucomyst for nephroprotection. Monitor renal function and adjust medications as needed. Avoid further contrast until BISHOP resolves. #Hepatic and Renal Lesions Summary: Stable hepatic hemangioma and indeterminate renal lesion. Management Plan: Defer MRI until renal function improves. #Hypertension Summary: BP soft (102/83) with antihypertensives held. Management Plan: Resume antihypertensives (nifedipine, Toprol, lisinopril, Lasix) when BP stabilizes. #Multiple Sclerosis Summary: Chronic condition, currently stable. Management Plan: Continue baclofen for spasticity as prescribed. #Hyperlipidemia Summary: Chronic condition. Management Plan: Continue atorvastatin 40 mg daily. #GI Prophylaxis Plan: Continue pantoprazole 40 mg BID for gastric protection. Pending Diagnostic and Follow-Up Items HIDA Scan: Completed--confirmed acute cholecystitis. Cultures: Await results of blood and urine cultures. Renal Imaging: MRI abdomen deferred until resolution of BISHOP. Disposition: Remains inpatient; discharge timeline contingent on clinical progress. ANTICOAGULANTS/DVT PROPHYLAXIS: AntiCoag AntiPlatelet Meds IP/OP Heparins Refills Start End heparin (porcine) 1,000 unit/mL injection 4,600 Units -- 08/09/2024 -- 40 Units/kg (4,600 Units), intravenous, As needed Linked Group 1: Placed in Or Linked Group heparin (porcine) 1,000 unit/mL injection 9,300 Units -- 08/09/2024 -- 80 Units/kg (9,300 Units), intravenous, As needed Linked Group 1: Placed in Or Linked Group heparin (porcine) 100 Units/mL in NaCl 0.45% 250 mL infusion -- 08/09/2024 -- 0-30 Units/kg/hr (0-3,480 Units/hr), intravenous, Continuous @ 0-34.8 mL/hr, 25,000 Units in 250 mL Notes to Pharmacy: If baseline aPTT is >40 seconds with no explainable cause, the provider should consider immediate consult (via phone) with a licensed mental health counselor and order special coagulation lab testing, Prolonged Clot Time Profile ([facility]: [id number]). Direct Factor Xa Inhibitors Refills Start End apixaban (Eliquis) 5 mg tablet 0 08/08/2024 09/07/2024 Sig - Route: Take 2 tablets (10 mg total) by mouth 2 (two) times a day for 7 days, THEN 1 tablet (5mg total) 2 (two) times a day for 23 days. - oral Notes to Pharmacy: Please do not FILL. For caban check only Renewals Renewal requests to authorizing provider (Vish Nicole M.D., Ph.D.) <b>prohibited</b> Lines, Drains, and Airways Drain Duration Indwelling Urinary Catheter 2d 10h Biliary Tube Cholecystostomy 12 Fr. RUQ 1d 2h Peripheral IV Duration Peripheral IV 08/08/24 20 G Anterior;Left;Lower Forearm 2d 14h Peripheral IV 08/08/24 Anterior;Distal;Left;Lower Forearm 2d 14h Wound Duration Wound 11/07/22 Toe (Comment) Anterior;Right 3 middle toes blisters 641d 20h Wound 11/07/22 Toe (Comment) Left;Medial blister 641d 20h Wound 11/25/22 Intertriginous Dermatitis Groin Bilateral 623d 20h Wound 12/15/22 Traumatic Toe (Comment) Bilateral 604d 6h Wound 12/15/22 Incision Thigh Anterior;Proximal;Right 604d 16h Wound 08/10/24 Buttocks 0d 0h DIET: Current Diet Adult Diet Regular starting at 08/09 1853 INFUSIONS: heparin (porcine) 100 Units/mL in NaCl 0.45% 250 mL infusion, 0-30 Units/kg/hr (Dosing Weight), Last Rate: 18 Units/kg/hr (08/10/24 1048) NaCl 0.9% infusion, 100 mL/hr, Last Rate: 100 mL/hr (08/10/24 1509) Last BM Date: 08/10/24 Code status: DNR/DNI Stable to discharge criteria (not yet met): Acute care monitoring needs HIM Provider Care Team: TOMASA WESLEY Indwelling Urinary Catheter (Active) Placement Date/Time: 08/08/24521 Greco Catheter Present?: Yes, Indication:Chronic Indwelling Plan for Removal: No plans for removal Discharge Information: Case reviewed with: Patient. Projected disposition: Uncertain. ADMINISTRATIVE BILLING: Total time spent 40 minutes, 20 minutes spent in counseling and coordination of care. TER * Kaushik Mitchell - 08/10/2024 9:58 AM CST GENERAL SURGERY INPATIENT PROGRESS NOTE Today's date: 08/10/2024 Date of admission: 08/08/2024 Status post: Postoperative Day: * No surgery found * SUBJECTIVE HISTORY OF PRESENT ILLNESS Mr. Ramirez is a pleasant 74 y.o. male. Patient was sleeping upon entering his room. Patient had to be woken up repeatedly during interview as get kept dozing off. No concerns reported from nursing. From the history I could obtain, he says his abdominal pain has improved from yesterday. He did have some nausea yesterday but none this morning. He does not know if he's tolerating food and liquids but I did notice he had an emesis bag on his bed. Denies feeling feverish or chills. Denies any other pain. OBJECTIVE VITAL SIGNS Vitals: 08/10/24 0816 BP: Pulse: Resp: Temp: SpO2: 90% PHYSICAL EXAMINATION General: A&Ox3, non-toxic in no acute distress, lying in bed, repeatedly dozed off to sleep, mildly confused to recent events Abdomen: soft, tender only to deep palpation in all four quadrants Intake/Output: Intake/Output Summary (Last 24 hours) at 08/10/2024 0958 Last data filed at 08/10/2024 0509 Gross per 24 hour Intake 1589 ml Output 1050 ml Net 539 ml Drains: percutaneous cholecystostomy placed 08/09, see procedure note for details DIAGNOSTICS Labs: Recent Results (from the past 24 hours) Gram Stain Collection Time: 08/09/24 12:30 PM Specimen: Gallbladder; Fluid Specimen Source Site: Fluid Result Value Gram Stain No organisms seen. White blood cells, Few. Heparin Anti-Xa Assay Collection Time: 08/09/24 9:33 PM Result Value Heparin Anti-Xa, P 0.34 Basic Metabolic Panel Collection Time: 08/10/24 5:06 AM Result Value Potassium, P 3.8 Sodium, P 140 Chloride, P 108 (H) Bicarbonate, P 22 Anion Gap, P 10 BUN (Blood Urea Nitrogen), P 36 (H) Creatinine 2.29 (H) Estimated GFR (eGFR) 29 (L) Calcium, Total, P 7.9 (L) Glucose, P 144 (H) CBC with Differential, Blood Collection Time: 08/10/24 5:06 AM Result Value Hemoglobin 10.3 (L) Hematocrit 32.8 (L) Erythrocytes 3.69 (L) MCV 88.9 RBC Distrib Width 16.0 (H) Platelet Count 159 Leukocytes 9.8 (H) Neutrophils 8.05 (H) Lymphocytes 0.61 (L) Monocytes 0.40 Eosinophils 0.72 (H) Basophils <0.03 Hepatic Function Panel Collection Time: 08/10/24 5:06 AM Result Value Bilirubin, Total, P 0.4 Bilirubin, Direct, P 0.3 Aspartate Aminotransferase (AST), P 105 (H) Alanine Aminotransferase (ALT), P 83 (H) Alkaline Phosphatase, P 209 (H) Albumin, P 2.6 (L) Protein, Total, P 5.4 (L) Magnesium Collection Time: 08/10/24 5:06 AM Result Value Magnesium, P 1.9 Phosphorus Inorganic Collection Time: 08/10/24 5:06 AM Result Value Phosphorus (Inorganic), P 3.5 Heparin Anti-Xa Assay Collection Time: 08/10/24 5:06 AM Result Value Heparin Anti-Xa, P 0.60 Imaging: No results found. ASSESSMENT / PLAN #1 Pulmonary embolus (principal) #2 Cholecystitis s/p percutaneous cholecystostomy drain placement 08/09 Plan: Mr. Ramirez is a 74 yo male admitted for management of acute pulmonary embolus and cholecystitis. Patient appears to be doing better compared to visiting him yesterday. His abdominal pain has improved after drain placement yesterday. General surgery will sign off as there is no urgent or emergentneed for surgery at the moment. Diet: Adult Diet Regular Activity: as tolerated, up with assistance VTE Prophylaxis: heparin coninuous 100 units/mL in NaCl 0.45% 250 mL infusion GI Prophylaxis: Pantoprazole Bowel Regimen: Senokot S, and prn Dulcolax, Miralax, and Simethicone Pain: prn Dilaudid, Tylenol, and prn Tramadol Antibiotics: Piperacillin/Tazobactam, bacitracin Disposition: unknown at this time Plan of care was discussed with the patient and all questions and concerns were answered to their satisfaction. Please see Wes Sheldon PA-C addendum for additional details. CELIA BanksS Cosigned by Julia Ware M.D. at 08/10/2024 5:28 PM FAGOTER TER TER Associated attestation - Julia Ware M.D. - 08/10/2024 5:28 PM FAGOTER I agree with the assessment and plan as described. Patient with acute cholecystitis and high medical risks around surgery with acute PE diagnosis. Appreciate IR team and placement of cholecystostomy tube. Please maintain tube. Darleen have diet. Recommend outpatient evaluation after hospital stay and after medical optimization to discuss potential interval cholecystectomy. Appreciate involvement. General Surgery to no longer follow while inpatient. Please contact with questions, concerns, or changes to clinical status. Julia Ware MD General Surgery * Vish Nicole M.D., Ph.D. - 08/09/2024 4:36 PM CST Images from the original note were not included. Internal Medicine Progress Note Date of Admission: 08/08/2024 LOS: 1 day SUBJECTIVE CHIEF COMPLAINT Embolus Pulmonary (HCC) INTERVAL UPDATES Ren Ramirez was seen and examined today. Patient doing well this morning. Denies any new symptoms. Intake/Output Summary (Last 24 hours) at 08/09/2024 1636 Last data filed at 08/09/2024 1401 Gross per 24 hour Intake 2731.07 ml Output 750 ml Net 1981.07 ml OBJECTIVE BP 122/59 (BP Location: Left arm;Upper, Patient Position: Lying) Pulse 102 Temp 36.6 ??C (Temporal) Resp 18 Ht 185.4 cm Wt 116 kg SpO2 94% BMI 33.83 kg/m?? PHYSICAL EXAM General: Alert and Orientated HEENT: Normocephalic, atraumatic. No scleral icterus. Oral mucosa moist. Neck: Supple. No lymphadenopathy. Cardiovascular: Normal S1/S2. No murmurs. Lungs: Clear to Auscultation Abdomen: Soft, nontender, nondistended. Positive bowel sounds. Extremities: No bilateral lower extremity edema. Neurological: Grossly intact. Admission Weight: 116 kg Current Weight: 116 kg Intake/Output Summary (Last 24 hours) at 08/09/2024 1636 Last data filed at 08/09/2024 1401 Gross per 24 hour Intake 2731.07 ml Output 750 ml Net 1981.07 ml DIAGNOSTICS Results from last 7 days Lab Units 08/09/24 0629 08/08/24 0417 WBC x10(9)/L 14.2* 16.7* VBGRS HEMOGLOBIN g/dL -- 13.7 HEMOGLOBIN g/dL 12.5* 13.3 HEMATOCRIT % 41.2 41.4 PLATELETS AUTO x10(9)/L 151 172 Results from last 7 days Lab Units 08/09/24 0629 08/08/24 0417 SODIUM P mmol/L 137 136 CHLORIDE P mmol/L 102 102 BUN P mg/dL 34* 23 CREATININE mg/dL 2.38* 1.52* CALCIUM P mg/dL 8.4* 8.8 Results from last 7 days Lab Units 08/08/24 0417 TRPS TROPONIN T ng/L 54* Results from last 7 days Lab Units 08/09/24 0629 08/08/24 0417 ALBUMIN P g/dL 2.6* 3.0* AST P U/L 174* 34 ALT P U/L 102* 25 ALK PHOS P U/L 243* 122 BILIRUBIN DIRECT P mg/dL 0.5* -- BILIRUBIN TOTAL P mg/dL 0.8 0.9 MICRO Results for orders placed or performed during the hospital encounter of 08/08/24 (from the past 2 weeks) Bacterial Culture, Aerobic + Susceptibility, Urine Specimen: Urine, Indwelling Catheter Specimen Source Site: Urine Result Value Urine Culture Urogenital microbiota, susceptibilities not performed per laboratory criteria. Gram Stain Specimen: Gallbladder; Fluid Specimen Source Site: Fluid Result Value Gram Stain No organisms seen. White blood cells, Few. RADIOLOGY CT Abdomen Pelvis with IV Contrast Final Result Findings compatible with cholecystitis. Diffuse gallbladder wall thickening, adjacent fat stranding, and mild gallbladder distention. NM Hepatobiliary with Pharmacologic Intervention Final Result 1. No evidence of the cholecystitis or biliary obstruction. 2. Photopenic area at the dome on the right lobe of liver, recommend liver ultrasound or hepatic CTfor further evaluation. Echo Transthoracic (TTE) Final Result Echo performed at the patient's bedside. LEFT VENTRICLE:Normal left ventricular chamber size. Concentric remodeling (increased wall thickness to cavity ratio). Calculated 2-D biplane volumetric left ventricular ejection fraction of 68%. No regional wall motion abnormalities. Flattening of the ventricular septum. Grade 1/3 left ventricular diastolic dysfunction, consistent with low to normalleft ventricular filling pressure. RIGHT VENTRICLE:Moderate-severely enlarged right ventricular chamber size. Mild- moderately reduced right ventricular systolic function. Estimated right ventricular systolic pressure 45 mmHg (right atrial pressure of 5 mmHg). ATRIA:Normal left atrial size by visual estimate. Enlarged right atrial size. CARDIAC VALVES:Trileaflet aortic valve. Mildly thickened aortic valve. No aortic valve regurgitation. Normal mitral valve. Trivial mitral valve regurgitation. Pulmonary valve not well visualized. Normal pulmonary valve systolic velocities. Trivial pulmonary valve regurgitation. Normal tricuspid valve. Trivial tricuspid valve regurgitation. OTHER ECHO FINDINGS:Normal inferior vena cava size with normal inspiratory collapse (>50%). Normal mid ascending aorta diameter of 35 mm. Upper limit of normal of the mid ascending aorta, for age,sex and BSA is 44 mm. Abdominal aorta not visualized. Imaging inadequate for detection of atrial level shunt by color flow imaging. No intracardiac mass or thrombus, but the left atrial appendage cannot be visualized adequately with transthoracic echo to exclude thrombus in this location. No pericardial effusion. Prominent epicardial fat layer. Attempts were made to optimize the echocardiographic images and two or more left ventricular segments were not visualized adequately to evaluate cardiac structure. The patient's current allergies and medications have been screened. Intravenous Definity ultrasound enhancement agent(s) administered to enhance endocardial border definition. Imaging enhancement agent administered per Echocardiography Contrast Administration Protocol Reference Document [id number] Rev 11/04/2021. Patient met an inclusion criterion and did not have contraindications in screening sections. For the complete report, see the Order-Level Documents. CT Chest Angiogram and Pulmonary Arteries with IV Contrast Final Result 1. Positive for acute pulmonary embolism. 2. Signs of right ventricular dysfunction are absent. Critical result reported to JOSEP LOMAX on 08/08/2024 5:47 AM via [employer] secure chat US Gallbladder and or Biliary Ducts Final Result Somewhat limited visualization as above, with findings equivocal for acute cholecystitis. IR Percutaneous Cholecystostomy Tube Placement (Results Pending) CURRENT MEDICATIONS Scheduled Meds: acetaminophen, 1,000 mg, oral, TID acetylcysteine, 600 mg, oral, BID aspirin, 81 mg, oral, Daily atorvastatin, 40 mg, oral, Daily at bedtime bacitracin, 1 Application, topical, BID baclofen, 10 mg, oral, BID calcium citrate-vitamin D3, 1 tablet, oral, Daily with morning meal clotrimazole, 1 Application, topical, BID latanoprost, 1 drop, both eyes, Daily at bedtime pantoprazole, 40 mg, oral, BID before morning and evening meals piperacillin-tazobactam, 2.25 g, intravenous, Q6H [facility] sennosides-docusate sodium, 1 tablet, oral, BID [START ON 08/10/2024] sodium chloride, 10 mL, intra-catheter, Daily sodium chloride, 3 mL, intravenous, Q12H [facility] Continuous Infusions: NaCl 0.9% infusion, 100 mL/hr, Last Rate: Stopped (08/09/24 5261) PRN Meds: bisacodyL diclofenac sodium HYDROmorphone ipratropium-albuteroL ipratropium-albuteroL ketorolac melatonin naloxone ondansetron ODT polyethylene glycol sennosides-docusate sodium simethicone sodium chloride sodium chloride sodium chloride sodium chloride MEDICATION CHANGE SUMMARY: New bisacodyL suppository 10 mg (Dulcolax) calcium citrate-vitamin D3 315 mg-5 mcg (200 Unit) per tablet 1 tablet (Citracal + D3) heparin (porcine) 1,000 unit/mL injection 4,600 Units OR heparin (porcine) 1,000 unit/mL injection 9,300 Units heparin (porcine) 100 Units/mL in NaCl 0.45% 250 mL infusion ipratropium-albuteroL 0.5-2.5 mg/3 mL nebulizer solution 3 mL (DuoNeb) ipratropium-albuteroL 0.5-2.5 mg/3 mL nebulizer solution 3 mL (DuoNeb) NaCl 0.9% infusion Pharmacy General Consult sodium chloride 0.9 % injection 10 mL sodium chloride 0.9 % injection 10 mL sodium chloride 0.9 % injection 3 mL sodium chloride 0.9 % injection 3 mL Changed acetaminophen tablet 1,000 mg (TylenoL) - Frequency changed from 4 times daily to 3 times daily. bacitracin 500 unit/gram ointment 1 Application - Unable to compare doses due to different strengths. latanoprost 0.005 % ophthalmic solution 1 drop (Xalatan) - Frequency changed from Daily to Dailyat bedtime. melatonin tablet 4.5 mg - Dose changed from 5 mg to 4.5 mg. ondansetron ODT disintegrating tablet 4 mg (Zofran-ODT) - Medication details are different. sennosides-docusate sodium (SENOKOT-S) 8.6-50 mg per tablet Similar Orders sennosides-docusate sodium 8.6-50 mg per tablet 1 tablet (Senokot-S) - 1 tablet, oral, 2 times daily PRN, constipation, Starting on Jayla 08/08/24 at 0318 sennosides-docusate sodium 8.6-50 mg per tablet 1 tablet (Senokot-S) - 1 tablet, oral, 2 times daily, First dose on Jayla 08/08/24 at 0900Do not give if patient has diarrhea. simethicone chewable tablet 80 mg - Order can't be discretely compared. Stopped albuterol 90 mcg/actuation inhaler calcium carbonate (TUMS) 500 mg (200 mg calcium) chewable tablet cholecalciferol 25 mcg (1,000 unit) tablet furosemide (LASIX) 20 mg tablet furosemide (Lasix) 40 mg tablet lisinopriL (PRINIVIL,ZESTRIL) 40 mg tablet metoprolol succinate (TOPROL-XL) 100 mg 24 hr tablet NIFEdipine XL (PROCARDIA XL) 90 mg 24 hr tablet potassium chloride (KLOR-CON SPRINKLE) 10 mEq ER sprinkle capsule ASSESSMENT AND PLAN Mr. Ramirez is hospitalized on [facility] for evaluation and management of: Embolus Pulmonary (HCC) Hospital day: 1d 15h #Pulmonary Embolism Summary: Subsegmental PE identified on imaging, unlikely to fully explain the degree of hypoxia. Patient is anticoagulated. Management Plan: Continue heparin infusion; transition to apixaban upon discharge. Monitor for bleeding and respiratory status. Supplemental oxygen to maintain SpO2 > 92%. Consider hematology follow-up if indicated. #Acute Hypoxic Respiratory Failure Summary: Multifactorial etiology (sepsis, PE, MS progression). SpO2 improved on supplemental oxygen. Management Plan: Maintain supplemental oxygen (currently on 5L nasal cannula). Continue DuoNeb Q6H. Reassess oxygen requirements frequently. #Acute Cholecystitis Summary: HIDA scan confirms acute cholecystitis with cystic duct obstruction. High surgical risk precludes cholecystectomy. Management Plan: Percutaneous cholecystostomy performed by IR; dark bilious fluid aspirated. Continue Zosyn for broad-spectrum coverage. Daily saline flushes and dressing care for the cholecystostomy tube. Routine tube exchange in 3 months unless surgically managed sooner. Restart heparin 6 hours post-procedure. Monitor for signs of infection or occlusion. #Severe Sepsis Summary: Sepsis likely secondary to acute cholecystitis and catheter-associated UTI. Management Plan: Continue Zosyn. Monitor clinical status and trends in lactate (currently improved to 1.2). Await blood and urine culture results. Hold antihypertensives given soft BP. #Acute Kidney Injury Summary: Likely multifactorial (sepsis, hypoxia, and possible contrast nephropathy). Creatinine increased to 2.53. Management Plan: Continue IV fluids (normal saline at 100 cc/hr). Administer Mucomyst for nephroprotection. Monitor renal function and adjust medications as needed. Avoid further contrast until BISHOP resolves. #Hepatic and Renal Lesions Summary: Stable hepatic hemangioma and indeterminate renal lesion. Management Plan: Defer MRI until renal function improves. #Hypertension Summary: BP soft (102/83) with antihypertensives held. Management Plan: Resume antihypertensives (nifedipine, Toprol, lisinopril, Lasix) when BP stabilizes. #Multiple Sclerosis Summary: Chronic condition, currently stable. Management Plan: Continue baclofen for spasticity as prescribed. #Hyperlipidemia Summary: Chronic condition. Management Plan: Continue atorvastatin 40 mg daily. #GI Prophylaxis Plan: Continue pantoprazole 40 mg BID for gastric protection. Pending Diagnostic and Follow-Up Items HIDA Scan: Completed--confirmed acute cholecystitis. Cultures: Await results of blood and urine cultures. Renal Imaging: MRI abdomen deferred until resolution of BISHOP. Disposition: Remains inpatient; discharge timeline contingent on clinical progress. ANTICOAGULANTS/DVT PROPHYLAXIS: AntiCoag AntiPlatelet Meds IP/OP Heparins Refills Start End heparin (porcine) 1,000 unit/mL injection 4,600 Units (Discontinued) -- 08/08/2024 08/09/2024 40 Units/kg (4,600 Units), intravenous, As needed Linked Group 1: Placed in Or Linked Group heparin (porcine) 1,000 unit/mL injection 9,300 Units (Discontinued) -- 08/08/2024 08/09/2024 80 Units/kg (9,300 Units), intravenous, As needed Linked Group 1: Placed in Or Linked Group heparin (porcine) 100 Units/mL in NaCl 0.45% 250 mL infusion (Discontinued) -- 08/08/2024 08/09/2024 0-30 Units/kg/hr (0-3,480 Units/hr), intravenous, Continuous @ 0-34.8 mL/hr, 25,000 Units in 250 mL Notes to Pharmacy: If baseline aPTT is >40 seconds with no explainable cause, the provider should consider immediate consult (via phone) with a licensed mental health counselor and order special coagulation lab testing, Prolonged Clot Time Profile (Epic: [id number]). Direct Factor Xa Inhibitors Refills Start End apixaban (Eliquis) 5 mg tablet 0 08/08/2024 09/07/2024 Sig - Route: Take 2 tablets (10 mg total) by mouth 2 (two) times a day for 7 days, THEN 1 tablet (5mg total) 2 (two) times a day for 23 days. - oral Notes to Pharmacy: Please do not FILL. For caban check only Renewals Renewal requests to authorizing provider (Vish Nicole M.D., Ph.D.) <b>prohibited</b> Lines, Drains, and Airways Drain Duration Biliary Tube Cholecystostomy 12 Fr. RUQ 4h Indwelling Urinary Catheter 1d 11h Peripheral IV Duration Peripheral IV 08/08/24 20 G Anterior;Left;Lower Forearm 1d 15h Peripheral IV 08/08/24 Anterior;Distal;Left;Lower Forearm 1d 15h Wound Duration Wound 11/07/22 Toe (Comment) Anterior;Right 3 middle toes blisters 640d 21h Wound 11/07/22 Toe (Comment) Left;Medial blister 640d 21h Wound 11/25/22 Intertriginous Dermatitis Groin Bilateral 622d 22h Wound 12/15/22 Traumatic Toe (Comment) Bilateral 603d 7h Wound 12/15/22 Incision Thigh Anterior;Proximal;Right 603d 17h DIET: Current Diet No oral nutrition starting at 08/09 0741 INFUSIONS: NaCl 0.9% infusion, 100 mL/hr, Last Rate: Stopped (08/09/24 1155) Last BM Date: (unknown per pt) Code status: DNR/DNI Stable to discharge criteria (not yet met): Acute care monitoring needs HIM Provider Care Team: TOMASA WESLEY Indwelling Urinary Catheter (Active) Placement Date/Time: 08/08/24 0522 Greco Catheter Present?: Yes, Indication:Chronic Indwelling Plan for Removal: No plans for removal Discharge Information: Case reviewed with: Patient. Projected disposition: Uncertain. ADMINISTRATIVE BILLING: Total time spent 40 minutes, 20 minutes spent in counseling and coordination of care. TER * Kaushik Mitchell - 08/09/2024 9:48 AM CST GENERAL SURGERY INPATIENT PROGRESS NOTE Today's date: 08/09/2024 Date of admission: 08/08/2024 Postoperative Day: * No surgery found * SUBJECTIVE HISTORY OF PRESENT ILLNESS Mr. Ramirez is a pleasant 74 y.o. male. Patient reports no concerns from overnight. Medically, nursing staff reported no concerns. 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 He denies feeling feverish and no nausea or vomiting this morning. He was slightly nauseous yesterday, but since being NPO in prep for his procedure today, the nausea improved. He did express being cold and he was wrapped with a lot of blankets upon enter the room. He also had a lot of diffuse abdominal pain but requested that we don't press on it as part of our examination. OBJECTIVE VITAL SIGNS Vitals: 08/09/24 0803 BP: 104/82 Pulse: 102 Resp: 18 Temp: 36.4 ??C SpO2: 93% PHYSICAL EXAMINATION General: A&Ox3, non-toxic in no acute distress, lying in bed completely covered with blankets Abdomen: unable to assess per patients request Intake/Output: Intake/Output Summary (Last 24 hours) at 08/09/2024 0948 Last data filed at 08/09/2024 0832 Gross per 24 hour Intake 2741.77 ml Output 350 ml Net 2391.77 ml Drains: none currently DIAGNOSTICS Labs: Recent Results (from the past 24 hours) Heparin Anti-Xa Assay Collection Time: 08/08/24 5:01 PM Result Value Heparin Anti-Xa, P 0.49 Basic Metabolic Panel Collection Time: 08/09/24 6:29 AM Result Value Potassium, P 4.2 Sodium, P 137 Chloride, P 102 Bicarbonate, P 20 (L) Anion Gap, P 15 BUN (Blood Urea Nitrogen), P 34 (H) Creatinine 2.38 (H) Estimated GFR (eGFR) 28 (L) Calcium, Total, P 8.4 (L) Glucose, P 129 CBC with Differential, Blood Collection Time: 08/09/24 6:29 AM Result Value Hemoglobin 12.5 (L) Hematocrit 41.2 Erythrocytes 4.42 MCV 93.2 RBC Distrib Width 16.0 (H) Platelet Count 151 Leukocytes 14.2 (H) Neutrophils 11.99 (H) Lymphocytes 0.59 (L) Monocytes 0.82 (H) Eosinophils 0.74 (H) Basophils 0.03 Hepatic Function Panel Collection Time: 08/09/24 6:29 AM Result Value Bilirubin, Total, P 0.8 Bilirubin, Direct, P 0.5 (H) Aspartate Aminotransferase (AST), P 174 (H) Alanine Aminotransferase (ALT), P 102 (H) Alkaline Phosphatase, P 243 (H) Albumin, P 2.6 (L) Protein, Total, P 6.0 (L) Magnesium Collection Time: 08/09/24 6:29 AM Result Value Magnesium, P 1.8 Phosphorus Inorganic Collection Time: 08/09/24 6:29 AM Result Value Phosphorus (Inorganic), P 4.5 Heparin Anti-Xa Assay Collection Time: 08/09/24 6:29 AM Result Value Heparin Anti-Xa, P 0.58 Imaging: CT Abdomen Pelvis with IV Contrast (08/08/2024) Impression: Findings compatible with cholecystitis. Diffuse gallbladder wall thickening, adjacent fat stranding, and mild gallbladder distention. NM Hepatobiliary with Pharmacologic Intervention (08/08/2024) Impression: 1. No evidence of the cholecystitis or biliary obstruction. 2. Photopenic area at the dome on the right lobe of liver, recommend liver ultrasound or hepatic CTfor further evaluation. ASSESSMENT / PLAN Hospital Problems as of 08/09/2024 1. * (Principal) Embolus Pulmonary (HCC) Assessment: Mr. Ramirez is a 74 yo male transferred from [place] to [facility] for management of acute pulmonary embolus and for further evaluate possible cholecystitis. Further imaging after an equivocal abdominal US with HIDA scan and abdominal/pelvic CT confirmed cholecystitis. Plan: Proceed with percutaneous cholecystostomy tube rather than cholecystectomy due to patient's comorbidities and high surgical risk. Diet: No diet orders on file Activity: up ad lizette, up with assistance VTE Prophylaxis: SCDs GI Prophylaxis: Pantoprazole Bowel Regimen: Dulcolax, Miralax, Senokot S, and Simethicone Pain: Tylenol Antibiotics: Piperacillin/Tazobactam Disposition: Unknown currently Plan of care was discussed with the patient and all questions and concerns were answered to their satisfaction. Please see Wes Sheldon PA-C addendum for additional details. CELIA BanksS Cosigned by Tae Sheldon P.A.-C., P.A. at 08/09/2024 10:32 AM FAGOTER TER TER Associated attestation - Tae Sheldon P.A.-C., P.A. - 08/09/2024 10:32 AM FAGOTER I evaluated Mr. Ramirez with Ms. Mitchell, [employer]AY[employer] student. I was present for or re- performed the History of Present Illness, Physical exam, and participated in the Medical Decision Making. I reviewed their note dated today and agree with the Findings, Assessment, and Plan This morning Mr. Ramirez noted moderate amount of abdominal pain and chills, generally not feeling well. Anticipating IR placement of perc blanca tube midday. Continue IV antibiotics. * Krystle Goddard, D., R.Ph. - 08/08/2024 3:01 PM CST Anticoagulation Consult Ren Ramirez is a 74 y.o. male who has received a pharmacy consult for cost and efficacy ofavailable anticoagulation options. OBJECTIVE Indication: PE Weight: 116 kg Body mass index is 33.83 kg/m??. [place] body weight: 79.9 kg Adjusted ideal body weight: 94.5 kg Relevant clinical data and objective history reviewed: Creatinine (mg/dL) Date Value Status 08/08/2024 1.52 (H) Final Estimated Creatinine Clearance: 57 mL/min (A) (by C-G formula based on SCr of 1.52 mg/dL (H)). Current anticoagulation: Current Anti-Coagulation and Anti-Platelet Medications Medication Dose Route Last Rate Last Admin aspirin 81 mg oral 81 mg at 08/08/24 0904 heparin (porcine) 40 Units/kg (Dosing Weight) intravenous Or heparin (porcine) 80 Units/kg (Dosing Weight) intravenous heparin (porcine) 0-30 Units/kg/hr (Dosing Weight) intravenous 16.2 mL/hr at 08/08/24 1330 14 Units/kg/hr at 08/08/24 1330 Current medications: Current Facility-Administered Medications: acetaminophen tablet 1,000 mg (TylenoL), 1,000 mg, oral, TID, Josep Lomax, 1,000 mg at [address] tablet 81 mg, 81 mg, oral, Daily, Josep Lomax, 81 mg at 08/08/24 0904 atorvastatin tablet 40 mg (Lipitor), 40 mg, oral, Daily at bedtime, Josep Lomax bacitracin 500 unit/gram ointment 1 Application, 1 Application, topical, BID, Josep Lomxa, 1 Application at 08/08/24 1310 baclofen tablet 10 mg (LioresaL), 10 mg, oral, BID, Josep Lomax bisacodyL suppository 10 mg (Dulcolax), 10 mg, rectal, Daily PRN, Josep Lomax calcium citrate-vitamin D3 315 mg-5 mcg (200 Unit) per tablet 1 tablet (Citracal + D3), 1 tablet, oral, Daily with morning meal, Josep Lomax, 1 tablet at 08/08/24 0905 clotrimazole 1 % cream 1 Application (Lotrimin), 1 Application, topical, BID, Josep Lomax, 1 Application at 08/08/24 1311 diclofenac sodium 1 % gel 2 g (Voltaren), 2 g, topical, 4x Daily PRN, Josep Lomax heparin (porcine) 1,000 unit/mL injection 4,600 Units, 40 Units/kg (Dosing Weight), intravenous, PRN OR heparin (porcine) 1,000 unit/mL injection 9,300 Units, 80 Units/kg (Dosing Weight), intravenous, PRN, Josep Lomax heparin (porcine) 100 Units/mL in NaCl 0.45% 250 mL infusion, 0-30 Units/kg/hr (Dosing Weight), intravenous, Continuous, Josep Lomax, Last Rate: 16.2 mL/hr at 08/08/24 1330, 14 Units/kg/hr at 08/08/24 1330 ipratropium-albuteroL 0.5-2.5 mg/3 mL nebulizer solution 3 mL (DuoNeb), 3 mL, nebulization, Q6H BERONICA, Lalito, Janeeka, 3 mL at 08/08/24 1324 ipratropium-albuteroL 0.5-2.5 mg/3 mL nebulizer solution 3 mL (DuoNeb), 3 mL, nebulization, Q6H PRN, Lalito Julee latanoprost 0.005 % ophthalmic solution 1 drop (Xalatan), 1 drop, both eyes, Daily at bedtime, Josep Lomax melatonin tablet 4.5 mg, 4.5 mg, oral, At bedtime PRN, Hastings, Janeeka NaCl 0.9% infusion, 100 mL/hr, intravenous, Continuous, Lalito, Janeeka, Stopped at 08/08/24 1330 ondansetron ODT disintegrating tablet 4 mg (Zofran-ODT), 4 mg, oral, Q6H PRN, Hastings, Janeeka pantoprazole DR tablet 40 mg (Protonix), 40 mg, oral, BID before morning and evening meals, Lalito,Janeecarolyn, 40 mg at 08/08/24 0555 polyethylene glycol powder packet 17 g (Miralax), 17 g, oral, Daily PRN, Hastings, Julee sennosides-docusate sodium 8.6-50 mg per tablet 1 tablet (Senokot-S), 1 tablet, oral, BID PRN, Lalito, Janeeka sennosides-docusate sodium 8.6-50 mg per tablet 1 tablet (Senokot-S), 1 tablet, oral, BID, Hastings, Janeeka, 1 tablet at 08/08/24 0904 simethicone chewable tablet 80 mg, 80 mg, oral, Daily PRN, Lalito, Janeecarolyn sodium chloride 0.9 % injection 10 mL, 10 mL, intravenous, PRN, Hastings, Janeeka sodium chloride 0.9 % injection 10 mL, 10 mL, intravenous, PRN, Lalito, Janeeka, 10 mL at 08/08/24 0849 sodium chloride 0.9 % injection 3 mL, 3 mL, intravenous, PRN, Lalito, Janeeka sodium chloride 0.9 % injection 3 mL, 3 mL, intravenous, Q12H BERONICA, Hastings, Janeeka, 3 mL at 08/08/24 1308 Insurance coverage: apixaban ASSESSMENT / PLAN Called [facility] in [place], [place]. Confirmed $0 co-pay for apixaban (starter pack and continued dosing). Thank you for this consult. Please contact any on duty pharmacist for further questions. Tamika Goddard, PharmNorbert., R.Ph. TER * Vish Nicole M.D., Ph.D. - 08/08/2024 2:48 PM CST Images from the original note were not included. Internal Medicine Progress Note Date of Admission: 08/08/2024 LOS: 0 days SUBJECTIVE CHIEF COMPLAINT Embolus Pulmonary (HCC) INTERVAL UPDATES Ren Ramirez was seen and examined today. Patient doing well this morning. Denies any new symptoms. Intake/Output Summary (Last 24 hours) at 08/08/2024 1449 Last data filed at 08/08/2024 1330 Gross per 24 hour Intake 1033.72 ml Output 350 ml Net 683.72 ml OBJECTIVE BP (!) 103/40 (BP Location: Right arm;Upper, Patient Position: Semi-recumbent) Pulse 82 Temp 36.7 ??C (Temporal) Resp 18 Ht 185.4 cm Wt 116 kg SpO2 (!) 89% BMI 33.83 kg/m?? PHYSICAL EXAM General: Alert and Orientated HEENT: Normocephalic, atraumatic. No scleral icterus. Oral mucosa moist. Neck: Supple. No lymphadenopathy. Cardiovascular: Normal S1/S2. No murmurs. Lungs: Clear to Auscultation Abdomen: Soft, nontender, nondistended. Positive bowel sounds. Extremities: No bilateral lower extremity edema. Neurological: Grossly intact. Admission Weight: 116 kg Current Weight: 116 kg Intake/Output Summary (Last 24 hours) at 08/08/2024 1449 Last data filed at 08/08/2024 1330 Gross per 24 hour Intake 1033.72 ml Output 350 ml Net 683.72 ml DIAGNOSTICS Results from last 7 days Lab Units 08/08/24 0417 WBC x10(9)/L 16.7* VBGRS HEMOGLOBIN g/dL 13.7 HEMOGLOBIN g/dL 13.3 HEMATOCRIT % 41.4 PLATELETS AUTO x10(9)/L 172 Results from last 7 days Lab Units 08/08/24 0417 SODIUM P mmol/L 136 CHLORIDE P mmol/L 102 BUN P mg/dL 23 CREATININE mg/dL 1.52* CALCIUM P mg/dL 8.8 Results from last 7 days Lab Units 08/08/24 0417 TRPS TROPONIN T ng/L 54* Results from last 7 days Lab Units 08/08/24 0417 ALBUMIN P g/dL 3.0* AST P U/L 34 ALT P U/L 25 ALK PHOS P U/L 122 BILIRUBIN TOTAL P mg/dL 0.9 MICRO No results found for this visit on 08/08/24 (from the past 2 weeks). RADIOLOGY Echo Transthoracic (TTE) Final Result Echo performed at the patient's bedside. LEFT VENTRICLE:Normal left ventricular chamber size. Concentric remodeling (increased wall thickness to cavity ratio). Calculated 2-D biplane volumetric left ventricular ejection fraction of 68%. No regional wall motion abnormalities. Flattening of the ventricular septum. Grade 1/3 left ventricular diastolic dysfunction, consistent with low to normalleft ventricular filling pressure. RIGHT VENTRICLE:Moderate-severely enlarged right ventricular chamber size. Mild- moderately reduced right ventricular systolic function. Estimated right ventricular systolic pressure 45 mmHg (right atrial pressure of 5 mmHg). ATRIA:Normal left atrial size by visual estimate. Enlarged right atrial size. CARDIAC VALVES:Trileaflet aortic valve. Mildly thickened aortic valve. No aortic valve regurgitation. Normal mitral valve. Trivial mitral valve regurgitation. Pulmonary valve not well visualized. Normal pulmonary valve systolic velocities. Trivial pulmonary valve regurgitation. Normal tricuspid valve. Trivial tricuspid valve regurgitation. OTHER ECHO FINDINGS:Normal inferior vena cava size with normal inspiratory collapse (>50%). Normal mid ascending aorta diameter of 35 mm. Upper limit of normal of the mid ascending aorta, for age,sex and BSA is 44 mm. Abdominal aorta not visualized. Imaging inadequate for detection of atrial level shunt by color flow imaging. No intracardiac mass or thrombus, but the left atrial appendage cannot be visualized adequately with transthoracic echo to exclude thrombus in this location. No pericardial effusion. Prominent epicardial fat layer. Attempts were made to optimize the echocardiographic images and two or more left ventricular segments were not visualized adequately to evaluate cardiac structure. The patient's current allergies and medications have been screened. Intravenous Definity ultrasound enhancement agent(s) administered to enhance endocardial border definition. Imaging enhancement agent administered per Echocardiography Contrast Administration Protocol Reference Document [id number] Rev 11/04/2021. Patient met an inclusion criterion and did not have contraindications in screening sections. For the complete report, see the Order-Level Documents. CT Chest Angiogram and Pulmonary Arteries with IV Contrast Final Result 1. Positive for acute pulmonary embolism. 2. Signs of right ventricular dysfunction are absent. Critical result reported to JOSEP LOMAX on 08/08/2024 5:47 AM via [place] US Gallbladder and or Biliary Ducts Final Result Somewhat limited visualization as above, with findings equivocal for acute cholecystitis. NM Hepatobiliary (Results Pending) CURRENT MEDICATIONS Scheduled Meds: acetaminophen, 1,000 mg, oral, TID aspirin, 81 mg, oral, Daily atorvastatin, 40 mg, oral, Daily at bedtime bacitracin, 1 Application, topical, BID baclofen, 10 mg, oral, BID calcium citrate-vitamin D3, 1 tablet, oral, Daily with morning meal clotrimazole, 1 Application, topical, BID ipratropium-albuteroL, 3 mL, nebulization, Q6H BERONICA latanoprost, 1 drop, both eyes, Daily at bedtime pantoprazole, 40 mg, oral, BID before morning and evening meals sennosides-docusate sodium, 1 tablet, oral, BID sodium chloride, 3 mL, intravenous, Q12H BERONICA Continuous Infusions: heparin (porcine) 100 Units/mL in NaCl 0.45% 250 mL infusion, 0-30 Units/kg/hr (Dosing Weight), Last Rate: 14 Units/kg/hr (08/08/24 1330) NaCl 0.9% infusion, 100 mL/hr, Last Rate: Stopped (08/08/24 1330) PRN Meds: bisacodyL diclofenac sodium heparin (porcine) OR heparin (porcine) ipratropium-albuteroL melatonin ondansetron ODT polyethylene glycol sennosides-docusate sodium simethicone sodium chloride sodium chloride sodium chloride MEDICATION CHANGE SUMMARY: New bisacodyL suppository 10 mg (Dulcolax) calcium citrate-vitamin D3 315 mg-5 mcg (200 Unit) per tablet 1 tablet (Citracal + D3) heparin (porcine) 1,000 unit/mL injection 4,600 Units OR heparin (porcine) 1,000 unit/mL injection 9,300 Units heparin (porcine) 100 Units/mL in NaCl 0.45% 250 mL infusion ipratropium-albuteroL 0.5-2.5 mg/3 mL nebulizer solution 3 mL (DuoNeb) ipratropium-albuteroL 0.5-2.5 mg/3 mL nebulizer solution 3 mL (DuoNeb) NaCl 0.9% infusion Pharmacy General Consult sodium chloride 0.9 % injection 10 mL sodium chloride 0.9 % injection 10 mL sodium chloride 0.9 % injection 3 mL sodium chloride 0.9 % injection 3 mL Changed acetaminophen tablet 1,000 mg (TylenoL) - Frequency changed from 4 times daily to 3 times daily. bacitracin 500 unit/gram ointment 1 Application - Unable to compare doses due to different strengths. latanoprost 0.005 % ophthalmic solution 1 drop (Xalatan) - Frequency changed from Daily to Dailyat bedtime. melatonin tablet 4.5 mg - Dose changed from 5 mg to 4.5 mg. ondansetron ODT disintegrating tablet 4 mg (Zofran-ODT) - Medication details are different. sennosides-docusate sodium (SENOKOT-S) 8.6-50 mg per tablet Similar Orders sennosides-docusate sodium 8.6-50 mg per tablet 1 tablet (Senokot-S) - 1 tablet, oral, 2 times daily PRN, constipation, Starting on Mon08/08/24 at 0318 sennosides-docusate sodium 8.6-50 mg per tablet 1 tablet (Senokot-S) - 1 tablet, oral, 2 times daily, First dose on Mon08/08/24 at 0900Do not give if patient has diarrhea. simethicone chewable tablet 80 mg - Order can't be discretely compared. Stopped albuterol 90 mcg/actuation inhaler calcium carbonate (TUMS) 500 mg (200 mg calcium) chewable tablet cholecalciferol 25 mcg (1,000 unit) tablet furosemide (LASIX) 20 mg tablet furosemide (Lasix) 40 mg tablet lisinopriL (PRINIVIL,ZESTRIL) 40 mg tablet metoprolol succinate (TOPROL-XL) 100 mg 24 hr tablet NIFEdipine XL (PROCARDIA XL) 90 mg 24 hr tablet potassium chloride (KLOR-CON SPRINKLE) 10 mEq ER sprinkle capsule ASSESSMENT AND PLAN Mr. Ramirez is hospitalized on [facility] for evaluation and management of: Embolus Pulmonary (HCC) Hospital day: 14h #Pulmonary Embolism Moderate to large bilateral PE with right heart strain noted on CT angiogram. However, the burden is described as minuscule, unlikely to cause current hypoxic respiratory compromise. Management Plan: Continue heparin drip for anticoagulation at least 48 hours and discharge on apixaban. Fortunately apixaban has a $0 co-pay Monitor for bleeding or worsening respiratory symptoms. Continue supplemental oxygen to maintain SpO2 > 92%. Follow-up with hematology consult as needed. #Acute Hypoxic Respiratory Failure Likely multifactorial: acute sepsis, underlying PE, and potential progression of comorbidities. SpO2 89% on room air, improving on 5L nasal cannula. Management Plan: Continue DuoNeb Q6H. Titrate supplemental oxygen to maintain saturation > 92%. #Acute Cholecystitis Equivocal findings on ultrasound (mild wall thickening, trace pericholecystic fluid, indeterminate Griffith sign). HIDA scan ordered. Management Plan: Await HIDA scan results. If acute cholecystitis confirmed, proceed with percutaneous cholecystostomy given high surgical risk. Continue Zosyn for broad-spectrum coverage. Monitor LFTs and abdominal symptoms. Follow-up with surgery team. #Severe Sepsis Source: catheter-associated UTI, possible cholecystitis. Lactate improved from 1.6 to 1.2. Management Plan: Continue Zosyn. Monitor for clinical improvement. Follow up on blood cultures and urine culture results. Continue holding antihypertensives (nifedipine, Toprol, lisinopril, and Lasix) due to soft BP. #Acute Kidney Injury (BISHOP) Likely secondary to hypoxia and sepsis. Creatinine 1.52, eGFR 48. Management Plan: Continue normal saline infusion at 100 cc/hr. Monitor renal function daily. Hold nephrotoxic agents and avoid further contrast until BISHOP resolves. #Hepatic and Renal Lesions 5.5 cm hepatic mass (likely hemangioma) and 1.3 cm indeterminate renal lesion. Management Plan: MRI of the abdomen deferred until BISHOP improves. #Hypertension BP soft at 102/83; antihypertensives held. Management Plan: Resume antihypertensives (nifedipine, Toprol, lisinopril, Lasix) when BP stabilizes. #Multiple Sclerosis Stable. Management Plan: Continue baclofen for spasticity. #Hyperlipidemia Management Plan: Continue atorvastatin 40 mg daily. DVT Prophylaxis: Continue heparin infusion for PE. GI Prophylaxis: Continue pantoprazole BID. Code Status: DNR/DNI. Pending: HIDA scan results for cholecystitis evaluation. Blood and urine culture results. MRI abdomen for lesion evaluation once renal function improves. ANTICOAGULANTS/DVT PROPHYLAXIS: AntiCoag AntiPlatelet Meds IP/OP Heparins Refills Start End heparin (porcine) 1,000 unit/mL injection 4,600 Units -- 08/08/2024 -- 40 Units/kg (4,600 Units), intravenous, As needed Linked Group 1: Placed in Or Linked Group heparin (porcine) 1,000 unit/mL injection 9,300 Units -- 08/08/2024 -- 80 Units/kg (9,300 Units), intravenous, As needed Linked Group 1: Placed in Or Linked Group heparin (porcine) 100 Units/mL in NaCl 0.45% 250 mL infusion -- 08/08/2024 -- 0-30 Units/kg/hr (0-3,480 Units/hr), intravenous, Continuous @ 0-34.8 mL/hr, 25,000 Units in 250 mL Notes to Pharmacy: If baseline aPTT is >40 seconds with no explainable cause, the provider should consider immediate consult (via phone) with a licensed mental health counselor and order special coagulation lab testing, Prolonged Clot Time Profile ([facility]: [id number]). Lines, Drains, and Airways Drain Duration Indwelling Urinary Catheter 9h Peripheral IV Duration Peripheral IV 08/08/24 20 G Anterior;Left;Lower Forearm 13h Peripheral IV 08/08/24 Anterior;Distal;Left;Lower Forearm 13h Wound Duration Wound 11/07/22 Toe (Comment) Anterior;Right 3 middle toes blisters 639d 19h Wound 11/07/22 Toe (Comment) Left;Medial blister 639d 19h Wound 11/25/22 Intertriginous Dermatitis Groin Bilateral 621d 20h Wound 12/15/22 Traumatic Toe (Comment) Bilateral 602d 5h Wound 12/15/22 Incision Thigh Anterior;Proximal;Right 602d 15h DIET: Current Diet No oral nutrition starting at 08/08 0404 INFUSIONS: heparin (porcine) 100 Units/mL in NaCl 0.45% 250 mL infusion, 0-30 Units/kg/hr (Dosing Weight), Last Rate: 14 Units/kg/hr (08/08/24 1330) NaCl 0.9% infusion, 100 mL/hr, Last Rate: Stopped (08/08/24 1330) Last BM Date: (unknown per pt) Code status: DNR/DNI Stable to discharge criteria (not yet met): Acute care monitoring needs HIM Provider Care Team: TOMASA WESLEY Indwelling Urinary Catheter (Active) Placement Date/Time: 08/08/24521 Greco Catheter Present?: Yes, Indication:Chronic Indwelling Plan for Removal: No plans for removal Discharge Information: Case reviewed with: Patient. Projected disposition: Uncertain. ADMINISTRATIVE BILLING: Total time spent 40 minutes, 20 minutes spent in counseling and coordination of care. TER TER * Corazon Garvin RDN, LD - 08/08/2024 8:47 AM CST Patient screened at nutrition risk for 2-11lb weight loss and decreased po intake. Chart review indicates that patient is Nutritional Risk: low risk due to weight history per EMR: 111kg (12/22/22), 114kg (01/18/23), 115kg (10/18/23) & 116kg (07/29/24). No weight loss noted. Follow patient per nutrition assessment guidelines. TER documented in this encounter H&P Notes * Josep Lomax - 08/08/2024 4:37 AM CST PRIMARY CARE PHYSICIAN: Jeff Reyes M.D. SUBJECTIVE CHIEF COMPLAINT/REASON FOR ADMISSION No chief complaint on file. HISTORY OF PRESENT ILLNESS Ren Ramirez is a 74 y.o. male with past medical history of multiple sclerosis, paraplegia,chronic indwelling catheter initially presented to [facility] from [facility] with right lower quadrant pain directly transferred to [facility] for further management of bila teral PE with right heart strain, bilateral DVT and acute cholecystitis. At the [facility], he was noted to have hypoxia in the 80s and was placed on 5 L nasal cannula. As per faxed paperwork, labs were notable for WBC 18.5, hemoglobin 13, platelets 178, sodium 136, potassium 4.5, bicarb 29, BUN 20, creatinine 1.3, lactate 1.6, LFTs unremarkable, BNP 605, CRP 35.5. Negative for flu A, flu B, and COVID-19. UA revealed trace leukocyte esterase, positive nitrites withpyuria, hematuria, and many bacteria. On CT angiography of the chest, he was noted to have moderateto large clot burden of bilateral PE involving the lower lobes with right heart strain. CT abdomen and pelvis revealed distended gallbladder with gallbladder wall thickening, pericholecystic fluid and surrounding inflammatory change consistent with acute cholecystitis without evidence of gallstonesor biliary ductal dilatation in addition to 5.5 cm right lobe hepatic mass, likely due to hemangioma and indeterminate 1.3 cm lesion of left kidney, unit support representative of hyperdense cyst versus neoplasm. Nonurgent MRI of abdomen was recommended. Bilateral venous duplex revealed bilateral calf DVT in the right posterior tibial vein and left peroneal vein. He was started on a heparin drip in the ER. Dr. Lazar (IR) recommended transfer to [facility] with stat CT of chest. Dr. Benson ([facility] surgeon) recommended that patient was okay for transfer for re- evaluation after right upper quadrant ultrasound and HIDA scan. 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 Examination (Dictated by Richard Johnson). 2. Dressing change. Wound VAC application to the right heel wound. IRRIGATION/DEBRIDEMENT Right 12/28/2016 Irrigation/debridement Notes: foot, exploration, proceed as indicated SURGICAL MANAGEMENT FRACTURE HIP INTERTROCHANTERIC Right 12/15/2022 Procedure: SURGICAL MANAGEMENT FRACTURE HIP.; Surgeon: Jana Don M.D.; Location: [facility] OR VASECTOMY 1976 WOUND DEBRIDEMENT Right 11/10/2016 wound debridement Notes: lower leg WOUND-WOUND VAC PLACEMENT Right 12/28/2016 Wound-wound vac placement Notes: possible vac placement ALLERGIES /CONTRAINDICATIONS Allergies Allergen Reactions Haemophilus Influenzae Other (see comments) Vancomycin Vancomycin Infusion Reaction Red Man Syndrome OUTPATIENT MEDICATIONS: Medications the Patient Reported Taking acetaminophen (TYLENOL) 500 mg tablet (Taking Differently) AntifungaL, clotrimazole, 1 % cream (Taking) aspirin [address] tablet (Taking) bacitracin 500 unit/gram ointment (Taking) baclofen (LIORESAL) 10 mg tablet (Taking) calcium carbonate (TUMS) 500 mg (200 mg calcium) chewable tablet (Taking) cholecalciferol 25 mcg (1,000 unit) tablet (Taking) diclofenac sodium (VOLTAREN) 1 % gel (Taking Differently) furosemide (Lasix) 40 mg tablet (Taking) GAS RELIEF 80 mg chewable tablet (Taking) lisinopriL (PRINIVIL,ZESTRIL) 40 mg tablet (Taking) metoprolol succinate (TOPROL-XL) 100 mg 24 hr tablet (Taking) NIFEdipine XL (PROCARDIA XL) 90 mg 24 hr tablet (Taking) pantoprazole (PROTONIX) 40 mg EC tablet (Taking) potassium chloride (KLOR-CON SPRINKLE) 10 mEq ER sprinkle capsule (Taking Differently) SOCIAL HISTORY Ren Ramirez reports that he quit smoking about 47 years ago. His smoking use included cigarettes. He has never been exposed to tobacco smoke. He does not have any smokeless tobacco history on file. He reports that he does not currently use alcohol after a past usage of about 1.0 standard drink of alcohol per week. He reports that he does not use drugs. FAMILY HISTORY Family History Problem Relation Name Age of Onset Hypertension Father father Glaucoma Father father Cancer Father father Coronary artery disease Father father Hyperlipidemia Father father Sleep apnea Father father REVIEW OF SYSTEMS A detailed review of system was performed and pertinent positives and negatives noted in history ofpresent illness. OBJECTIVE VITAL SIGNS Temperature: [37.1 ??C] 37.1 ??C Heart Rate: [81-86] 82 Resp Rate: [17-24] 18 Blood Pressure: (102-121)/(43-83) 121/43 SpO2: [90 %-93 %] 91 % Flow Rate (L/min): [5 L/min] 5 L/min Height: [185.4 cm] 185.4 cm Weight: [116 kg] 116 kg BSA (Calculated - sq m): [2.44 sq meters] 2.44 sq meters BMI (Calculated): [33.8 kg/m??] 33.8 kg/m?? Pulse Rate: [73-86] 82 PHYSICAL EXAMINATION General: Obese gentleman with accessory muscle use saturating at 92% on 5 L nasal cannula HEENT: Normocephalic, atraumatic. EOMs intact. Moist oral mucosa. Neck: Supple. Cardiovascular: Regular rate and rhythm without murmur. Lungs: Clear breath sounds in all lung murcia without rales, rhonchi or wheezing Abdomen: Distended abdomen, generalized tenderness, however most predominantly tender in right lower quadrant, bowel sounds present, without guarding, rigidity, or rebound tenderness Extremities: Nonpitting bilateral lower extremity edema with skin changes consistent with venous stasis Neurological: No focal neurological deficits. Right lower extremity externally rotated and unable to raise bilateral lower extremities against gravity, able to raise bilateral upper extremity againstgravity DIAGNOSTICS LABORATORY DATA: Recent Results (from the past 24 hours) CBC with Differential, Blood Collection Time: 08/08/24 4:17 AM Result Value Hemoglobin 13.3 Hematocrit 41.4 Erythrocytes 4.71 MCV 87.9 RBC Distrib Width 15.9 (H) Platelet Count 172 Leukocytes 16.7 (H) Neutrophils 15.71 (H) Lymphocytes 0.20 (L) Monocytes 0.46 Eosinophils 0.28 Basophils <0.03 Blood Gas with Coox, Arterial Collection Time: 08/08/24 4:17 AM Result Value P O2 65 (L) P CO2 41 pH 7.40 Base Excess 0 HCO3 24 Hemoglobin, Venous 13.7 O2Hb 89.2 (L) COHb 2.5 MetHb 0.8 CtO2 17.1 (L) Arterial Sample Site R-Radial Lactate for Sepsis with Reflex Collection Time: 08/08/24 4:17 AM Result Value Lactate, B 1.2 APTT (Activated Partial Thromboplastin Time) Collection Time: 08/08/24 4:17 AM Result Value Activated Partial Thrombopl Time, P 32 Patient Status Collection Time: 08/08/24 4:17 AM Result Value O2 Flow 5.0 Spont. breaths/min CANCELED IMAGING DATA: From [facility] as per faxed imaging reports, Date of below studies: 08/07/2024 CT angiography of the chest - moderate to large clot burden of bilateral PE involving the lower lobes with right heart strain. CT abdomen and pelvis - distended gallbladder with gallbladder wall thickening, pericholecystic fluid and surrounding inflammatory change consistent with acute cholecystitis without evidence of gallstones or biliary ductal dilatation in addition to 5.5 cm right lobe hepatic mass, likely due to hemangioma and indeterminate 1.3 cm lesion of left kidney, unit support representative of hyperdense cyst versus neoplasm. Nonurgent MRI of abdomen was recommended. Bilateral venous duplex - bilateral calf DVT in the right posterior tibial vein and left peroneal vein. EKG: Pending ASSESSMENT / PLAN Ren Ramirez is a 74 y.o. male with past medical history of multiple sclerosis, paraplegia,chronic indwelling catheter initially presented to [facility] from [facility] with right lower quadrant pain directly transferred to [facility] for further management of bila teral PE with right heart strain, bilateral DVT, and acute cholecystitis. Acute hypoxic respiratory failure, saturating low 90s on 5 L nasal cannula Bilateral pulmonary embolism with moderate to large clot burden involving the lower lobes with right heart strain Bilateral DVT in right posterior tibial vein and left peroneal vein Dr. Lazar (IR) made aware and recommended stat CT chest upon arrival - follow-up stat CT chest angiogram - continue heparin drip - duo nebs - continue supplemental oxygen - follow-up with IR consult - follow-up hematology consult 2. Severe Sepsis Acute cholecystitis Catheter associated urinary tract infection Dr. Benson (surgery) made aware and recommended re-evaluation after ultrasound and HIDA. Lactate 1.6 ([facility])--> 1.2 ([facility]). Negative for flu A, flu B, RSV, and COVID-19 as per faxed labs from [facility]. - follow-up right upper quadrant ultrasound and HIDA scan - continue Zosyn - follow-up surgery consult - follow-up blood cultures - follow-up urine culture - Nifedipine 90 mg, Toprol 100 mg, lisinopril 40 mg, and Lasix 60 mg held due to soft blood pressure 3. BISHOP due to acute hypoxic respiratory failure and sepsis - continue normal saline infusion at 100 cc/hour - monitor BNP 4. 5.5 cm right lobe hepatic mass, likely due to hemangioma Indeterminate 1.3 cm lesion of left kidney, unit support representative of hyperdense cyst versus neoplasm. MRI recommended as per imaging report from [facility] - Given recent contrast studies in the past 24 hours and BISHOP, recommend MRI of abdomen when BISHOP improves 5. Hypertension Lymphedema Upon arrival to [facility], blood pressure noted to be 102/83 - nifedipine 90 mg daily, Toprol 100 mg daily, and lisinopril 40 mg daily held - Lasix 60 mg held - Resume medications when blood pressure improves 6. Multiple sclerosis - continue baclofen 7. Hyperlipidemia - continue atorvastatin 40 mg daily DVT prophylaxis: Heparin infusion for bilateral PE GI prophylaxis: P.o. Protonix Code status: DNR/DNI ADMINISTRATIVE BILLING Total time spent 4- minutes, 5 minutes spent in counseling and coordination of care. TER documented in this encounter Procedure Notes * Anuel Nunn M.D. - 08/09/2024 12:41 PM CST BRIEF POST PROCEDURE NOTE Vascular & Interventional Radiology PROCEDURE Percutaneous 12 Salvadorean cholecystostomy tube placement PRE-PROCEDURE DIAGNOSIS Acute cholecystitis POST-PROCEDURE DIAGNOSIS Same. PROCEDURE DETAILS / FINDINGS Percutaneous 12 Salvadorean cholecystostomy tube placement. Approximately 100 mL dark bilious fluid withdrawn from the gallbladder. Contrast injection showed occluded cystic duct. Please see Radiology Report for full details. FITNESS COORDINATOR Ollie Nunn M.D. SPECIMENS REMOVED 100 mL dark bilious fluid ESTIMATED BLOOD LOSS <5ml COMPLICATIONS None. PATIENT DISPOSITION Return to inpatient bed. PLAN While inpatient, please flush the drain with 10 mL saline once a day. Upon discharge will change toflushes as needed when concerned for tube occlusion. Drain flush and drain care teaching. Please change the dressing every other day, more frequently if the dressing is soiled. OK to shower with dressing in place, please change dressing after showering Routine tube exchange in 3 months if the patient retains the tube. If patient becomes a candidate for cholecystectomy, tube will be removed during the surgery. TER documented in this encounter Consult Notes * Paty Duque R.N., CAideeN., CWON - 08/12/2024 12:18 PM CSTAssociated Order(s): IP CONSULT TO WOUND CARE Images from the original note were not included. REASON FOR CONSULT: Friction Injury Right Buttock Intertrigo Dermatitis Abdomen/Groin Folds HISTORY OF PRESENT ILLNESS: Ren Ramirez is a 74 y.o. male with past medical history of multiple sclerosis, paraplegia,chronic indwelling catheter initially presented to [facility] from [facility] with right lower quadrant pain directly transferred to [facility] for further management of bila teral PE with right heart strain, bilateral DVT and acute cholecystitis. WOUND ASSESSMENT: Wound #1 Type: Wound Friction Injury Wound Location: Buttocks Wound Orientation: Right Wound Bed Tissue: Red Isatu-Wound Skin: Blanchable erythema, Fragile, and Purple Wound #2 Type: Wound Intertrigo Dermatitis Wound Location: Groin/Abdomen Wound Orientation: Bilateral Wound Bed Tissue: Closed Isatu-Wound Skin: Moist PLAN: BUTTOCK: DAILY Cleanse area with Vashe wound cleanser Pat skin dry Apply a dry 2 x 2 gauze over open wound area Secure with a 4 x 4 Mepilex dressing OFFLOADING : 1. [employer] 3 mattress. Ensure it is plugged in and operational at all times. Set firmness to patient comfort level. Okay to Auto Firm for dressing changes but remember to turn the Auto Firmoff. 2. Head of bed no> 30 , except with meals. 3. Turn every 2 hours. 4. Limit time in chair to 1-2 hour increments. Utilize chair cushion. Be sure the head of the chairis reclined as far back as possible to limit sliding down in chair. ABDOMEN/GROIN FOLDS: 2 X DAILY Cleanse deep into skin folds with Vashe wound cleanser Pat skin dry Apply a light dusting of Nystatin powder working deep into skin folds 4. Apply Interdry Ag into bilateral abdominal and groin skin folds. Cut long pieces so that Interdry is exposed to air at least 2 inches. NOTE ABOUT INTERDRY: This is reusable for up to 5 days. After use, hang up to dry. Please contact [facility] RNs if you have any question or concerns regarding wound care. Paty Duque R.N., CWON at [phone] Martine Deluna R.N., CWCN at [phone] TER TER * Jerri York R - 08/09/2024 3:53 PM CSTAssociated Order(s): IP CONSULT TO CARE MANAGEMENT; IP CONSULT TO CARE MANAGEMENT Psychosocial Assessment SUBJECTIVE Assessment Information Referral Source: Provider/Service Referral Reason: Psychosocial assessment Primary Language: Dominican Network Liaison Services Used: No Person(s) present during interview: patient and caregiver, Bekah, nurse public health program manager at [facility] Disclaimer: They were advised of the various topics that will be assessed during this evaluation. They consented to proceed. The information provided in the assessment is based on review of the medical record as well as the telephone interview. They were advised that the content of this interview will be shared with the health care team and documented in the medical record. They were advised thatanyone with access to their patient portal will have access to this information. It was discussed that staff are mandated reporters and they reported understanding. History of Present Illness #1 Embolus Pulmonary (HCC) Social History Early Growth and Development: The patient met social and developmental milestones as expected. Family of Origin: Patient grew p in the [place], [place] area on a farm with his parents and three sisters. Citizenship: [place] Citizen Resident Status: [place] Resident Marital Status: , passed in January 2022 Family / Household: Patient lives in [facility] in [place] since January 2023. Support System: children and family members, two sons (Sabino and Homero) and one daughter, Malika. Primary Caregiver: facility staff Caregiver Information: Caregiver Name: Self Spirituality/Anglican/Cultural Factors: Shinto History: No Highest Level of Education: high school (9-12/GED) Employment: retired Psychosocial Risk Factors Impacting the Patient: none Current Stressors Hospitalization Coping Skills/Strengths Strong family support Financial/Insurance Primary insurance: MEDICA [place] [facility] Secondary insurance: N/A Advance Directives Legal Decision Maker: Self Advance Directives Status: Not Activated Baseline Functional Status Baseline Activities of Daily Living Mobility: Requires lifting device Dressing: Dependent Feeding: Independent Bathing: Needs assistance Grooming: Independent Toileting: Needs assistance Behavior: Appropriate, Pleasant, Calm, Cooperative, Oriented Communication: Talks, Understands speaking, Understands Dominican Shopping: Dependent Medication Management: Dependent Housekeeping: Dependent Meal Prep: Dependent Assistive Devices: Commode, Wheelchair - power, Toilet riser, Grab bars - toilet, Lift device, Tub/shower chair/bench Services/Resources: 24 hour assistance Transportation: Wheelchair van Managing Finances: Dependent Baseline Services/Resources Primary care clinic and provider: Jeff Reyes M.D. Services/Resources: 24 hour assistance [place], [place] Anticipated Needs Functional Status: Transfer to/from bed, chair, etc., Toileting, Grooming/hygeine, Dressing, Bathing, Mobility, Meal preparation, Medication set-up/administration Assistive Devices: None Services/Resources: 24 hour assistance Anticipated Modifications to the Patient's Home: None Transportation Needs: Wheelchair van Does the patient need discharge transport arranged?: No Has discharge transport been arranged?: No Anticipated Discharge Destination: [facility] OBJECTIVE Substance Abuse Patient report no illicit drug, alcohol, or tobacco use currently or in the past. Mental Health Mental Health History: Patient reports no mental health history Patient reports no current concerns Mental Health Treatment History No history of Psychiatric Treatment noted Suicide Risk and Safety Risk Assessment: Not appropriate at this time, patient lethargic Mental Status Orientation: Oriented to person, place and time Level of consciousness: Awake and alert Appearance: Age appearing Behavior observed: Calm and Interactive Memory: Good Estimated intellectual functioning: Average for developmental level Status of concentration: Good Cooperation: Cooperative Mood: Calm and Fine Affect: Within a normal range Speech: Within normal limits for volume, rate and tone. Thought process: Logical and goal-directed Thought content, auditory/visual hallucinations and/or delusions: No abnormality noted Judgement: Good Insight: Intact Motivation for treatment: Adequate Safety: No risk identified ASSESSMENT / PLAN Discussion dust box worker met with patient to introduce self/role in the care management department. Also spokewith nurse, Bekah at patient's communication spec care facility, [facility] in [place] to complete baseline information. Patient has lived at facility for about 1.5 years. Stated his children are very supportive and attentive in his care. Patient is alert and oriented to all and able to makehis own decisions. Social work made phone call to facility Nurse public health program manager, Bekah. She confirmed patient is at their facility for communication spec care and has lived there over one year. Stated he is a total assist with ceilinglift, and needs assistance with commode, toileting, dressing. Stated patient helps roll self back and forth in bed when needed. He has a greco catheter and utilizes an electric wheelchair. Stated they manage his medications and assist with meals. Stated patient's children are very involved in his care. This travel writer asked Bekah if patient had inquired to move to a different facility; however, she stated patient had not discussed this except for when he first moved in. She reported patient has high level needs and would need to be in a snf care facility. Reported they have a sister [facility] that patient and/or family could be interested in. Social work made phone call to patient's daughterMalika to introduce self and inquire of any questions and provide updates. Social work to inquire of patient's desire to admit to a different facility; however, daughter did not answer. Voicemail left stating admissions are closed on weekends and this travel writer would be available to discuss further on Monday. [facility] Admissions [phone] Interventions Psychosocial assessment completed. Provided supportive services. Provided education regarding the role of social work. Provided education regarding referral resources and options. Provided [facility] Discharge Folder. A list of agencies within the area that patient/family geographically resides or requests has been provided to and reviewed with patient/family. Disclosure of [place] financial interest [facility]) was provided to and acknowledged by patient/family. Plan Anticipate patient will return to [facility] at time of discharge. Social work/care management will need to discuss wheelchair transportation with patient/ family. Patient likely would be private pay. Loida York 08/09/2024 IFER * nAuel Nunn M.D. - 08/09/2024 8:00 AM CSTAssociated Order(s): INTERVENTIONAL RADIOLOGY CONSULT VASCULAR AND INTERVENTIONAL RADIOLOGY CONSULT SUBJECTIVE CHIEF COMPLAINT/REASON FOR VISIT I was asked by Dr. Nicole of the hospitalist service to evaluate the patient for concerns of cholecystitis and PE. HISTORY OF PRESENT ILLNESS Ren Ramirez is a 74 y.o. male with history of MS who presented with hypoxia and generalized abdominal pain, found to have subsegmental PE and possible cholecystitis. Limited review of symptoms due to the patient's severity of illness. Endorses some lower leg swelling but otherwise has generalized abdominal pain. 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 Examination (Dictated by Richard Johnson). 2. Dressing change. Wound VAC application to the right heel wound. IRRIGATION/DEBRIDEMENT Right 12/28/2016 Irrigation/debridement Notes: foot, exploration, proceed as indicated SURGICAL MANAGEMENT FRACTURE HIP INTERTROCHANTERIC Right 12/15/2022 Procedure: SURGICAL MANAGEMENT FRACTURE HIP.; Surgeon: Jana Don M.D.; Location: [facility] OR VASECTOMY 1976 WOUND DEBRIDEMENT Right 11/10/2016 wound debridement Notes: lower leg WOUND-WOUND VAC PLACEMENT Right 12/28/2016 Wound-wound vac placement Notes: possible vac placement CURRENT MEDICATIONS Current Facility-Administered Medications: acetaminophen tablet 1,000 mg (TylenoL), 1,000 mg, oral, TID, Josep Lomax, 1,000 mg at 116 acetylcysteine 200 mg/mL solution 600 mg (Mucomyst), 600 mg, oral, BID, Vish Nicole M.D., Ph.D. aspirin DR tablet 81 mg, 81 mg, oral, Daily, Josep Lomax, 81 mg at 08/08/24 0904 atorvastatin tablet 40 mg (Lipitor), 40 mg, oral, Daily at bedtime, Josep Lomax, 40 mg at 08/08/242115 bacitracin 500 unit/gram ointment 1 Application, 1 Application, topical, BID, Josep Lomax, 1 Application at 08/08/24 131 baclofen tablet 10 mg (LioresaL), 10 mg, oral, BID, HastingsJosep, 10 mg at 08/08/242115 bisacodyL suppository 10 mg (Dulcolax), 10 mg, rectal, Daily PRN, Josep Lomax calcium citrate-vitamin D3 315 mg-5 mcg (200 Unit) per tablet 1 tablet (Citracal + D3), 1 tablet, oral, Daily with morning meal, Josep Lomax, 1 tablet at 08/08/24 09 clotrimazole 1 % cream 1 Application (Lotrimin), 1 Application, topical, BID, Josep Lomax, 1 Application at 08/08/24 131 diclofenac sodium 1 % gel 2 g (Voltaren), 2 g, topical, 4x Daily PRN, Josep Lomax ipratropium-albuteroL 0.5-2.5 mg/3 mL nebulizer solution 3 mL (DuoNeb), 3 mL, nebulization, Q6H PRN, Josep Lomax ipratropium-albuteroL 0.5-2.5 mg/3 mL nebulizer solution 3 mL (DuoNeb), 3 mL, nebulization, 4x Daily PRN, Vish Nicole M.D., Ph.D. latanoprost 0.005 % ophthalmic solution 1 drop (Xalatan), 1 drop, both eyes, Daily at bedtime, Josep Lomax melatonin tablet 4.5 mg, 4.5 mg, oral, At bedtime PRN, Josep Lomax NaCl 0.9% infusion, 100 mL/hr, intravenous, Continuous, Josep Lomax, Last Rate: 100 mL/hr at 08/09/24 0324, 100 mL/hr at 08/09/24 0324 ondansetron ODT disintegrating tablet 4 mg (Zofran-ODT), 4 mg, oral, Q6H PRN, Lalito, Janeeka, 4 mgat 08/08/[address] tablet 40 mg (Protonix), 40 mg, oral, BID before morning and evening meals, Lalito,Janeeka, 40 mg at 08/08/24 1626 piperacillin-tazobactam injection 2.25 g (Zosyn), 2.25 g, intravenous, Q6H [facility] Hariprasad R, M.D., Ph.D. polyethylene glycol powder packet 17 g (Miralax), 17 g, oral, Daily PRN, Lalito, Janeeka sennosides-docusate sodium 8.6-50 mg per tablet 1 tablet (Senokot-S), 1 tablet, oral, BID PRN, Lalito, Janeeka sennosides-docusate sodium 8.6-50 mg per tablet 1 tablet (Senokot-S), 1 tablet, oral, BID, Lalito, Janeeka, 1 tablet at 08/08/24 2116 simethicone chewable tablet 80 mg, 80 mg, oral, Daily PRN, Lalito, Janeeka sodium chloride 0.9 % injection 10 mL, 10 mL, intravenous, PRN, Hastings, Janeeka sodium chloride 0.9 % injection 10 mL, 10 mL, intravenous, PRN, Hastings, Janeeka, 10 mL at 08/08/24 0849 sodium chloride 0.9 % injection 10 mL, 10 mL, intravenous, Once in imaging, Mart Zelaya M.D. sodium chloride 0.9 % injection 3 mL, 3 mL, intravenous, PRN, Lalito, Janeeka sodium chloride 0.9 % injection 3 mL, 3 mL, intravenous, Q12H BERONICA, Hastings, Janeeka, 3 mL at 08/08/24 1308 ALLERGIES Allergies Allergen Reactions Haemophilus Influenzae Other (see comments) Vancomycin Vancomycin Infusion Reaction Red Man Syndrome SOCIAL HISTORY Social History Tobacco Use Smoking status: Former Current packs/day: 0.00 Types: Cigarettes Quit date: 1977 Years since quittin.0 Passive exposure: Never Vaping Use Vaping status: former use Substance Use Topics Alcohol use: Not Currently Alcohol/week: 1.0 standard drink of alcohol Types: 1 Cans of beer per week Drug use: Never FAMILY HISTORY Family History Problem Relation Name Age of Onset Hypertension Father father Glaucoma Father father Cancer Father father Coronary artery disease Father father Hyperlipidemia Father father Sleep apnea Father father REVIEW OF SYSTEMS A review of systems was completed and was negative except as per H&P. OBJECTIVE VITAL SIGNS Temperature: [36.4 ??C-36.7 ??C] 36.4 ??C Heart Rate: [81-104] 104 Resp Rate: [18] 18 Blood Pressure: (98-107)/(40-82) 104/82 SpO2: [89 %-95 %] 93 % Flow Rate (L/min): [2 L/min-6 L/min] 5 L/min Pulse Rate: [82-102] 102 Vitals reviewed. PHYSICAL EXAMINATION General: Appears unwell and uncomfortable Respiratory: Nasal cannula in place, normal respiratory effort Cardiac: Tachycardic, regular rhythm Abdomen: Diffuse abdominal tenderness DIAGNOSTICS Results from last 7 days Lab Units 08/09/24 0629 08/08/24 0417 WBC x10(9)/L 14.2* 16.7* VBGRS HEMOGLOBIN g/dL -- 13.7 HEMOGLOBIN g/dL 12.5* 13.3 HEMATOCRIT % 41.2 41.4 PLATELETS AUTO x10(9)/L 151 172 Results from last 7 days Lab Units 08/09/24 0629 08/08/24 0417 SODIUM P mmol/L 137 136 CREATININE mg/dL 2.38* 1.52* ESTIMATED GFR EGFR mL/min/BSA 28* 48* BUN P mg/dL 34* 23 CHLORIDE P mmol/L 102 102 Results from last 7 days Lab Units 08/08/24 0417 TRPS TROPONIN T ng/L 54* Results from last 7 days Lab Units 08/09/24 0629 08/08/24 0417 ALBUMIN P g/dL 2.6* 3.0* AST P U/L 174* 34 ALT P U/L 102* 25 ALK PHOS P U/L 243* 122 BILIRUBIN DIRECT P mg/dL 0.5* -- BILIRUBIN TOTAL P mg/dL 0.8 0.9 IMAGING: Fully reviewed. HIDA scan from 08/08/2024 (personally interpreted) No filling of the gallbladder which is consistent with acute cholecystitis CT abdomen/pelvis from 08/08/2024: EXAM: CT ABDOMEN PELVIS WITH IV CONTRAST COMPARISON: CT chest today, CT abdomen and pelvis 12/14/2022, hepatobiliary scan today, gallbladderultrasound today FINDINGS: Cyst in the hepatic dome at the junction of the right and left lobes, 6.5 cm in maximal visualized dimension, stable compared to 12/14/2022. The superior margin of the cyst is partly excluded. Mild atelectasis in the posterior lower lobes. No suspicious hepatic mass. Moderate diffuse gallbladder wall thickening and moderate adjacent fat stranding about the gallbladder extending to the ryan hepatis, and gallbladder distention up to 12 cm in length, concerning for cholecystitis. Spleen, and adrenal glands are normal. Generalized pancreatic parenchymal atrophy. No pancreatic ductal dilatation. No hydronephrosis. No suspicious renal mass. Bilateral multiple renal cysts. Generalized renal parenchymal atrophy. No ureteral dilatation. Urinary bladder is decompressed by a Greco catheter. No bowel dilatation or wall thickening. Normal appendix. No ascites. No free air. Normal caliber abdominal aorta and IVC. 2 cm umbilical hernia containingfat. Internal fixation right hip. IMPRESSION: Findings compatible with cholecystitis. Diffuse gallbladder wall thickening, adjacent fat stranding, and mild gallbladder distention. ASSESSMENT / PLAN 74 y.o.male with history of MS who presented with hypoxia and diffuse abdominal pain Patient with vague abdominal complaints, so both CT abdomen/pelvis and HIDA scan were performed. Both CT and HIDA scan are consistent with acute cholecystitis with no other intra-abdominal sources toexplain the current leukocytosis and abdominal pain. Plan for percutaneous cholecystostomy. Risks, benefits, and alternatives of cholecystostomy tube placement were discussed with the patient, and both written and informed consent was obtained. Regarding the patient's subsegmental PE, the PE burden is minimal. Risks of catheter directed thrombectomy/thrombolysis outweigh the benefits. Recommend therapeutic anticoagulation as able but will need to balance hemobilia risk after cholecystostomy tube placement. If patient has persistent or hemodynamically significant hemobilia after cholecystostomy tube placement, may need to consider retrievable IVC filter. Unclear what the source of the patient's hypoxia is. The minimal PE burden would be unlikely to be the cause of the degree of hypoxia unless the patient has no respiratory reserve. ADMINISTRATIVE BILLING Total time spent 45 minutes, greater than 50% of which was spent in counseling and coordination of care. Ollie Nunn M.D. Vascular & Interventional Radiology TER * Sebastián Blake P.A.-C. - 08/08/2024 9:32 AM CSTAssociated Order(s): IP CONSULT TO HEMATOLOGY Referring Provider: Iris Wooten M.D. SUBJECTIVE The patient was not personally interviewed or examined. The history and examination findings are based on the clinical documentation provided and/or discussed with a physician or provider who had personally interviewed and examined the patient. REASON FOR CONSULT Patient is a 74 y.o. male being reviewed by Hematology as a referral by Iris Wooten M.D. for bilateral PE with moderate to large clot burden with RV strain. HISTORY OF PRESENT ILLNESS Ren Galicia is a 74-year-old male with a medical history of multiple sclerosis, paraplegia, and neurogenic bladder with chronic indwelling catheter. He resides in an assisted living facility. Record reviewed indicate patient presented to [place] ED with complaints of right lower quadrantabdominal pain. In ED he was noted to be hypoxic with O2 sats in the 80s. Labs completed showed leukocytosis with elevated lactate at 1.6, BNP at 605, and CRP at 35.5. UA revealed trace leukocyte esterase, positive nitrites with pyuria, hematuria, and many bacteria. -CT chest angiogram completed revealed moderate to large clot burden of bilateral pulmonary embolism involving the lower lobes with right heart strain. -CT of the abdomen and pelvis revealed distended gallbladder with wall thickening, pericholecystic fluid and surrounding inflammatory changes suspicious for acute cholecystitis. In addition to 5.5 cmright lobe hepatic mass, likely due to hemangioma and indeterminate 1.3 cm lesion of left kidney, unit support representative of hyperdense cyst versus neoplasm. Nonurgent MRI of abdomen was recommended. Patient was then transferred to [facility] for further evaluation and management. -Bilateral venous duplex revealed bilateral calf DVT in the right posterior tibial vein and left peroneal vein. He was started on a heparin drip in the ER. Oncology History No history exists. ALLERGIES Allergies Allergen Reactions Haemophilus Influenzae Other (see comments) Vancomycin Vancomycin Infusion Reaction Red Man Syndrome MEDICATIONS Current Facility-Administered Medications Medication Dose Route Frequency Provider Last Rate Last Admin acetaminophen tablet 1,000 mg (TylenoL) 1,000 mg oral TID Josep Lomax 1,000 mg at 08/08/[address] tablet 81 mg 81 mg oral Daily HastingsJosep 81 mg at 08/08/24 0904 atorvastatin tablet 40 mg (Lipitor) 40 mg oral Daily at bedtime Josep Lomax bacitracin 500 unit/gram ointment 1 Application 1 Application topical BID LalitoJosep baclofen tablet 10 mg (LioresaL) 10 mg oral BID Josep bisacodyL suppository 10 mg (Dulcolax) 10 mg rectal Daily PRN Josep Lomax calcium citrate-vitamin D3 315 mg-5 mcg (200 Unit) per tablet 1 tablet (Citracal + D3) 1 tablet oral Daily with morning meal Josep Lomax 1 tablet at 08/08/24 0905 clotrimazole 1 % cream 1 Application (Lotrimin) 1 Application topical BID Josep Lomax diclofenac sodium 1 % gel 2 g (Voltaren) 2 g topical 4x Daily PRN Josep Lomax heparin (porcine) 1,000 unit/mL injection 4,600 Units 40 Units/kg (Dosing Weight) intravenous PRN Josep Lomax Or heparin (porcine) 1,000 unit/mL injection 9,300 Units 80 Units/kg (Dosing Weight) intravenous PRN Smita Lomax heparin (porcine) 100 Units/mL in NaCl 0.45% 250 mL infusion 0-30 Units/kg/hr (Dosing Weight) intravenous Continuous Josep Lomax 13.9 mL/hr at 08/08/24 0555 12 Units/kg/hr at 08/08/24 0555 ipratropium-albuteroL 0.5-2.5 mg/3 mL nebulizer solution 3 mL (DuoNeb) 3 mL nebulization Q6H BERONICA Josep Lomax 3 mL at 08/08/24 0906 ipratropium-albuteroL 0.5-2.5 mg/3 mL nebulizer solution 3 mL (DuoNeb) 3 mL nebulization Q6H PRN Josep Lomax latanoprost 0.005 % ophthalmic solution 1 drop (Xalatan) 1 drop both eyes Daily at bedtime Josep Lomax melatonin tablet 4.5 mg 4.5 mg oral At bedtime PRN Josep Lomax NaCl 0.9% infusion 100 mL/hr intravenous Continuous Josep Lomax 100 mL/hr at 08/08/24 0555 100 mL/hr at 08/08/24 0555 ondansetron ODT disintegrating tablet 4 mg (Zofran-ODT) 4 mg oral Q6H PRN Lalito, Josep pantoprazole DR tablet 40 mg (Protonix) 40 mg oral BID before morning and evening meals LalitoJosep 40 mg at 08/08/24 0555 polyethylene glycol powder packet 17 g (Miralax) 17 g oral Daily PRN Lalito, Josep polyethylene glycol powder packet 17 g (Miralax) 17 g oral Daily PRN HastingsJosep sennosides-docusate sodium 8.6-50 mg per tablet 1 tablet (Senokot-S) 1 tablet oral BID PRN Lalito, Josep sennosides-docusate sodium 8.6-50 mg per tablet 1 tablet (Senokot-S) 1 tablet oral BID Josep Lomax 1 tablet at 08/08/24 0904 simethicone chewable tablet 80 mg 80 mg oral Daily PRN Hastings, Josep sodium chloride 0.9 % injection 10 mL 10 mL intravenous PRN Hastings, Josep sodium chloride 0.9 % injection 10 mL 10 mL intravenous PRN Lalito, Josep 10 mL at 08/08/24 0849 sodium chloride 0.9 % injection 3 mL 3 mL intravenous PRN Hastings, Josep sodium chloride 0.9 % injection 3 mL 3 mL intravenous Q12H BERONICA Josep Lomax PAST MEDICAL/SURGICAL HISTORY Past Medical History: Diagnosis Date Apnea Sleep Obstructive Arthritis Rheumatoid (HCC) Coronary Artery Disease (Unspecified) Glaucoma Heart Failure NOS Hyperlipidemia Hypertension NOS Multiple Sclerosis (HCC) Non-ST Elevation Myocardial Infarction (HCC) 05/26/2018 Open Reduction Internal Fixation Hip Status Post 12/22/2022 Other Specified Health Status 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 Examination (Dictated by Richard Johnson). 2. Dressing change. Wound VAC application to the right heel wound. IRRIGATION/DEBRIDEMENT Right 12/28/2016 Irrigation/debridement Notes: foot, exploration, proceed as indicated SURGICAL MANAGEMENT FRACTURE HIP INTERTROCHANTERIC Right 12/15/2022 Procedure: SURGICAL MANAGEMENT FRACTURE HIP.; Surgeon: Jana Don M.D.; Location: [facility] ROMB OR VASECTOMY 1976 WOUND DEBRIDEMENT Right 11/10/2016 wound debridement Notes: lower leg WOUND-WOUND VAC PLACEMENT Right 12/28/2016 Wound-wound vac placement Notes: possible vac placement FAMILY HISTORY Family History Problem Relation Name Age of Onset Hypertension Father father Glaucoma Father father Cancer Father father Coronary artery disease Father father Hyperlipidemia Father father Sleep apnea Father father SOCIAL HISTORY Social History Socioeconomic History Marital status: Spouse name: Not on file Number of children: Not on file Years of education: Not on file Highest education level: 12th grade Occupational History Not on file Tobacco Use Smoking status: Former Current packs/day: 0.00 Types: Cigarettes Quit date: 1977 Years since quittin.0 Passive exposure: Never Smokeless tobacco: Not on file Vaping Use Vaping status: former use Substance and Sexual Activity Alcohol use: Not Currently Alcohol/week: 1.0 standard drink of alcohol Types: 1 Cans of beer per week Drug use: Never Sexual activity: Not Currently Partners: Male control/protection: None Other Topics Concern Not on file Social History Narrative Not on file Social Drivers of Health Food Insecurity: No Food Insecurity (08/08/2024) Hunger Vital Sign Worried About Running Out of Food in the Last Year: Never true Ran Out of Food in the Last Year: Never true Transportation Needs: No Transportation Needs (08/08/2024) PRAPARE - Transportation Lack of Transportation (Medical): No Lack of Transportation (Non-Medical): No Intimate Partner Violence: Not At Risk (08/08/2024) Humiliation, Afraid, Rape, and Kick questionnaire Fear of Current or Ex-Partner: No Emotionally Abused: No Physically Abused: No Sexually Abused: No Housing Stability: Low Risk (08/08/2024) Housing Stability Housing: Living Situation: I have a steady place to live PHYSICAL EXAMINATION BP (!) 116/50 (BP Location: Right arm;Upper, Patient Position: Semi-recumbent) Pulse 87 Temp 37.2 ??C (Temporal) Resp 17 Ht 185.4 cm Wt 116 kg SpO2 (!) 89% BMI 33.83 kg/m?? DIAGNOSTICS Laboratory data reviewed and is noncontributory. CT chest angiogram completed 08/08/2024 reviewed. IMPRESSION: 1. Positive for acute pulmonary embolism. 2. Signs of right ventricular dysfunction are absent. TTE completed 08/08/2024 reviewed Final Impressions 1. Echo performed at the patient's bedside. 2. Normal left ventricular chamber size. 3. Calculated 2-D biplane volumetric left ventricular ejection fraction of 68%. 4. Flattening of the ventricular septum. 5. Grade 1/3 left ventricular diastolic dysfunction, consistent with low to normal left ventricularfilling pressure. 6. Moderate-severely enlarged right ventricular chamber size. 7. Mild-moderately reduced right ventricular systolic function. 8. Estimated right ventricular systolic pressure 45 mmHg (right atrial pressure of 5 mmHg). 9. Trivial tricuspid valve regurgitation. 10. Normal inferior vena cava size with normal inspiratory collapse (>50%). 11. Intravenous Definity ultrasound enhancement agent(s) administered to enhance endocardial borderdefinition. ASSESSMENT / PLAN #1 Embolus Pulmonary (HCC) #2 DVT 74 y.o. male with past medical history of multiple sclerosis, paraplegia, chronic indwelling catheter with new findings of bilateral pulmonary embolism with right heart strain and bilateral DVT. Patient is currently heparin drip and is planned to have additional testing including ultrasound and HIDA scan. For acute PE and/or DVT we recommend patient to; Continue with the heparin drip while hospitalized and may transition to DOAC upon discharge. We recommend Apixaban 5 mg b.i.d. indefinitely. Upon discharge, may follow up with PCP or Hematology. ADMINISTRATIVE/BILLING I personally spent a total 30 minutes in counseling and coordination of care as documented above. Sebastián Blake PA-C. This case was discussed with on-call provider Jet Canas M.D. Cosigned by Jet Jimenez M.D. at 08/08/2024 5:45 PM FAGOTER TER TER TER * Stella Bateman P.A.-C., Elise - 08/08/2024 9:08 AM CSTAssociated Order(s): IP CONSULT TO GENERAL SURGERY GENERAL SURGERY CONSULT NOTE Date of admission: 08/08/2024 Admitting physician: Vish Nicole,* Reason for admission: Embolus Pulmonary (HCC) Primary care physician: Jeff Reyes M.D. CHIEF COMPLAINT / REASON FOR ADMISSION Embolus Pulmonary (HCC) Reason for consult: Suspicion for acute cholecystitis HISTORY OF PRESENT ILLNESS Mr. Ramirez is a pleasant 74 y.o. male with past medical history of multiple sclerosis, paraplegia, CAD, HTN, and chronic indwelling catheter for neurogenic bladder presents to the emergency department in [place] with complaints of right lower quadrant abdominal pain. On presentation to the emergency department at [place] the patient was hypoxic with saturations in the 80s, leukocytosis of 18.5, hemoglobin of 13 lactate 1.6, BNP 605, and CRP 35.5. Urinalysis revealed signs consistent with urinary tract infection CT angiography of the chest revealed moderate to large clot burden of bilateral pulmonary embolism involving the lower lobes with right heart strain and CT of the abdomen and pe lvis revealed distended gallbladder with wall thickening, pericholecystic fluid and surrounding inflammatory changes suspicious for acute cholecystitis. Of note, there was no evidence of gallstones or ductal dilatation. Patient was then transferred to [facility] for further evaluation and management of acute pulmonary embolism and further workup of suspicion for cholecystitis. At bedside this morning, patient does report that he has had abdominal pain. He does localize this to the right and left lower quadrants. He denies any specific chronic history especially following meals. Ultrasound of the abdomen was performed which does reveal mild gallbladder wall thickening with indeterminate sonographic Griffith sign and trace pericholecystic fluid, equivocal for acute cholecystitis. Labs revealed normal LFTs, improved lactate this morning, and normal bilirubin. Patient reports no previous abdominal surgical history. 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 Examination (Dictated by Richard Johnson). 2. Dressing change. Wound VAC application to the right heel wound. IRRIGATION/DEBRIDEMENT Right 12/28/2016 Irrigation/debridement Notes: foot, exploration, proceed as indicated SURGICAL MANAGEMENT FRACTURE HIP INTERTROCHANTERIC Right 12/15/2022 Procedure: SURGICAL MANAGEMENT FRACTURE HIP.; Surgeon: Jana Don M.D.; Location: [facility] OR VASECTOMY 1976 WOUND DEBRIDEMENT Right 11/10/2016 wound debridement Notes: lower leg WOUND-WOUND VAC PLACEMENT Right 12/28/2016 Wound-wound vac placement Notes: possible vac placement Family History Problem Relation Name Age of Onset Hypertension Father father Glaucoma Father father Cancer Father father Coronary artery disease Father father Hyperlipidemia Father father Sleep apnea Father father Social History Tobacco Use Smoking status: Former Current packs/day: 0.00 Types: Cigarettes Quit date: 1977 Years since quittin.0 Passive exposure: Never Vaping Use Vaping status: former use Substance Use Topics Alcohol use: Not Currently Alcohol/week: 1.0 standard drink of alcohol Types: 1 Cans of beer per week Drug use: Never Allergies Allergen Reactions Haemophilus Influenzae Other (see comments) Vancomycin Vancomycin Infusion Reaction Red Man Syndrome Current Medications: acetaminophen tablet 1,000 mg (TylenoL), TID aspirin DR tablet 81 mg, Daily atorvastatin tablet 40 mg (Lipitor), Daily at bedtime bacitracin 500 unit/gram ointment 1 Application, BID baclofen tablet 10 mg (LioresaL), BID bisacodyL suppository 10 mg (Dulcolax), Daily PRN calcium citrate-vitamin D3 315 mg-5 mcg (200 Unit) per tablet 1 tablet (Citracal + D3), Daily with morning meal clotrimazole 1 % cream 1 Application (Lotrimin), BID diclofenac sodium 1 % gel 2 g (Voltaren), 4x Daily PRN heparin (porcine) 1,000 unit/mL injection 4,600 Units, PRN OR heparin (porcine) 1,000 unit/mL injection 9,300 Units, PRN heparin (porcine) 100 Units/mL in NaCl 0.45% 250 mL infusion, Continuous ipratropium-albuteroL 0.5-2.5 mg/3 mL nebulizer solution 3 mL (DuoNeb), Q6H BERONICA ipratropium-albuteroL 0.5-2.5 mg/3 mL nebulizer solution 3 mL (DuoNeb), Q6H PRN latanoprost 0.005 % ophthalmic solution 1 drop (Xalatan), Daily at bedtime melatonin tablet 4.5 mg, At bedtime PRN NaCl 0.9% infusion, Continuous ondansetron ODT disintegrating tablet 4 mg (Zofran-ODT), Q6H PRN pantoprazole DR tablet 40 mg (Protonix), BID before morning and evening meals polyethylene glycol powder packet 17 g (Miralax), Daily PRN polyethylene glycol powder packet 17 g (Miralax), Daily PRN sennosides-docusate sodium 8.6-50 mg per tablet 1 tablet (Senokot-S), BID PRN sennosides-docusate sodium 8.6-50 mg per tablet 1 tablet (Senokot-S), BID simethicone chewable tablet 80 mg, Daily PRN sodium chloride 0.9 % injection 10 mL, PRN sodium chloride 0.9 % injection 10 mL, PRN sodium chloride 0.9 % injection 3 mL, PRN sodium chloride 0.9 % injection 3 mL, Q12H BERONICA OBJECTIVE VITAL SIGNS Vitals: 08/08/24 0555 BP: (!) 116/50 Pulse: 87 Resp: 17 Temp: 37.2 ??C SpO2: (!) 89% Body mass index is 33.83 kg/m??. PHYSICAL EXAMINATION Constitutional General: He is not in acute distress. Appearance: He is well-developed and well-nourished. He is not diaphoretic. Abdominal General: There is no distension. Palpations: Abdomen is soft. Tenderness: There is abdominal tenderness. There is no guarding or rebound. Comments: Some tenderness appreciated with deep palpation in the right lateral abdomen as well as left lower quadrant. No sign of guarding or peritonitis. No evidence of previous surgical incisions or hernias. Neurological Mental Status: He is alert and oriented to person, place, and time. DIAGNOSTICS Laboratory Studies: Recent Results (from the past 24 hours) CBC with Differential, Blood Collection Time: 08/08/24 4:17 AM Result Value Hemoglobin 13.3 Hematocrit 41.4 Erythrocytes 4.71 MCV 87.9 RBC Distrib Width 15.9 (H) Platelet Count 172 Leukocytes 16.7 (H) Neutrophils 15.71 (H) Lymphocytes 0.20 (L) Monocytes 0.46 Eosinophils 0.28 Basophils <0.03 Comprehensive Metabolic Panel Collection Time: 08/08/24 4:17 AM Result Value Potassium, P 4.5 Sodium, P 136 Chloride, P 102 Bicarbonate, P 20 (L) Anion Gap, P 14 BUN (Blood Urea Nitrogen), P 23 Creatinine 1.52 (H) Estimated GFR (eGFR) 48 (L) Calcium, Total, P 8.8 Glucose, P 195 (H) Protein, Total, P 6.5 Albumin, P 3.0 (L) Aspartate Aminotransferase (AST), P 34 Alkaline Phosphatase, P 122 Alanine Aminotransferase (ALT), P 25 Bilirubin, Total, P 0.9 Blood Gas with Coox, Arterial Collection Time: 08/08/24 4:17 AM Result Value P O2 65 (L) P CO2 41 pH 7.40 Base Excess 0 HCO3 24 Hemoglobin, Venous 13.7 O2Hb 89.2 (L) COHb 2.5 MetHb 0.8 CtO2 17.1 (L) Arterial Sample Site R-Radial CRP (C-Reactive Protein) Collection Time: 08/08/24 4:17 AM Result Value C-Reactive Protein (CRP), P 424.0 (H) Lactate for Sepsis with Reflex Collection Time: 08/08/24 4:17 AM Result Value Lactate, B 1.2 APTT (Activated Partial Thromboplastin Time) Collection Time: 08/08/24 4:17 AM Result Value Activated Partial Thrombopl Time, P 32 Patient Status Collection Time: 08/08/24 4:17 AM Result Value O2 Flow 5.0 Spont. breaths/min CANCELED Troponin T, 5th Generation Collection Time: 08/08/24 4:17 AM Result Value Troponin T, 5th gen 54 (H) Urinalysis with Microscopic if Indicated: Urine, Indwelling Catheter Collection Time: 08/08/24 5:03 AM Result Value Source Urine, Urine, Indwelling Catheter Clarity Turbid (A) Color Allyson Blood Large (A) Nitrite Negative Leukocyte Esterase Moderate (A) Protein 100 (A) Glucose Negative Ketone Negative Bilirubin Negative pH 5.5 Specific [place] >1.035 (A) Urobilinogen 1.0 Microscopic Automated Collection Time: 08/08/24 5:03 AM Result Value White Blood Cells >100 (A) Red Blood Cells 3-10 (A) Dysmorphic Red Blood Cells <=25 Squamous Cells Occ-3 Transitional Cells Occ-3 (A) Bacteria Present (A) Heparin Anti-Xa Assay Collection Time: 08/08/24 7:47 AM Result Value Heparin Anti-Xa, P 0.28 Images: CT Chest Angiogram and Pulmonary Arteries with IV Contrast Result Date: 08/08/2024 Impression: 1. Positive for acute pulmonary embolism. 2. Signs of right ventricular dysfunction areabsent. Critical result reported to JOSEP LOMAX on 08/08/2024 5:47 AM via [facility] US Gallbladder and or Biliary Ducts Result Date: 08/08/2024 Impression: Somewhat limited visualization as above, with findings equivocal for acute cholecystitis. ASSESSMENT / PLAN Principal Problem: Embolus Pulmonary (HCC) Resolved Problems: * No resolved hospital problems. * Plan: 74-year-old gentleman with past medical history for multiple sclerosis, paraplegia, HTN, CAD, neurogenic bladder in the PCU for further evaluation of acute bilateral pulmonary embolism as well as suspicion for acute cholecystitis. Due to the equivocal nature of abdominal ultrasound we would recommend proceeding with HIDA scan to determine further evidence of acute cholecystitis or gallbladder dysfunction. Should these results reveal abnormal pathology we would likely recommend percutaneous cholecystostomy tube to the patient's current comorbid conditions and high risk for surgical procedures.General surgery will continue to follow throughout the day as results returned. Plan of care was discussed with the patient; all questions and concerns were answered to his satisfaction. Plan of care was also discussed with Dr. Jerome. Stella Bateman PA-C TER TER TER documented in this encounter Nursing Notes * Karen Oneil R.N. - 08/16/2024 5:59 PM CST INPATIENT NURSING DISCHARGE SUMMARY Discharge Provider: No att. providers found Admission Date: 08/08/2024 Discharge Date: 08/16/2024 08/16/2024 DISCHARGE DISPOSITION [facility] CONDITION AT DISCHARGE stable TREATMENTS Wound care DEVICES/EQUIPMENT Wheelchair PROFESSIONAL [employer]ED SERVICES Nursing, Occupational Therapy, Physical Therapy, and Size Stamper MODE OF DISCHARGE Wheelchair TRANSPORTATION Private Vehicle ACCOMPANIED BY HYDROGENATION OPERATOR and Family: Son All belongings sent home with patient. TER * Mary Ortega R.N. - 08/16/2024 5:30 AM CST Shift Goals: VSS, Blanca Tube, Safety Identify possible barriers to meeting goals/advancing plan of care: Acuity of illness End of Shift Summary: A&O x3 VSS, Room air Pain managed with repositioning & scheduled tylenol Adequate I/Os, Chronic greco in place Blanca tube, 20 mL. Sanguineous BLE rash/cellulitis unchanged Q2HR repos to promote skin integrity, w.c. completed Problem: PAIN - ADULT Goal: PT VERBALIZES/DEMONSTRATES ADEQUATE COMFORT LEVEL OR BASELINE Outcome: Progressing Note: Pain managed with repositioning and scheduled tylenol Problem: SAFETY ADULT Goal: Maintain a safe environment Outcome: Progressing Note: Call light appropriate Problem: CARDIOVASCULAR - ADULT Goal: Maintains optimal cardiac output and hemodynamic stability Outcome: Progressing Note: VSS, Room air TER * Yesenia Low R.N. - 08/15/2024 2:12 PM CST Shift Goals: Clinical Goals for the Shift: Monitor Respiratory Function, Promote Safety and Comfort, Q2h Reposition, VSS Identify possible barriers to meeting goals/advancing plan of care: Acuity of illness. INPATIENT SHIFT SUMMARY 7-3 p ORIENTATION: A&Ox3 SAFETY MEASURES: Bed Alarm, Chair Alarm, and Hourly Rounding ASSISTED MOBILITY: x2 and Ceiling lift VITALS: VSS INTAKE: Adequate for solids and Adequate for liquids OUTPUT: Patient has indwelling catheter in place. PAIN: Pain has been well controlled with scheduled medications PRN MEDICATIONS UTILIZED THIS SHIFT: None DVT PROPHYLAXIS: Eliquis CHG/GRECO CARE NEEDS: Greco cares SHIFT EVENTS: No acute events. Wound care completed. Educated patient on current plan of care as discharge was mentioned during rounds today and patient was fixated on going home. TER * Mary Ortega R.N. - 08/15/2024 5:30 AM CST Shift Goals: VSS, Blanca Tube, Safety Identify possible barriers to meeting goals/advancing plan of care: Acuity of illness End of Shift Summary: A&O x3 VSS, Room air No complains of pain Aequate I/Os, Chronic greco in place Blanca tube, 25 mL. Sanguineous PRN Benadryl given for BLE rash Q2HR Repos to promote skin integrity, w.c. completed Problem: PAIN - ADULT Goal: PT VERBALIZES/DEMONSTRATES ADEQUATE COMFORT LEVEL OR BASELINE Outcome: Progressing Note: No complaints of pain Problem: CARDIOVASCULAR - ADULT Goal: Maintains optimal cardiac output and hemodynamic stability Outcome: Progressing Note: VSS, Room air TER * Gloria Claudio RAmparoN. - 08/14/2024 4:35 PM CST INPATIENT SHIFT SUMMARY ORIENTATION: A&Ox3 SAFETY MEASURES: Bed Alarm and Hourly Rounding ASSISTED MOBILITY: x2 and Ceiling lift VITALS: Vitals assessed and stable this shift INTAKE: Adequate for solids and Adequate for liquids OUTPUT: Patient has indwelling catheter in place. PAIN: Pain has been well controlled with scheduled medications and PRNs PRN MEDICATIONS UTILIZED THIS SHIFT: None DVT PROPHYLAXIS: Eliquis CHG/GRECO CARE NEEDS: Greco cares SHIFT EVENTS: Replaced mag & phos. WC done. Redness remained inside outline, no worsening pain, redness, or warmth. Patient up to chair for a few hours. Patient able to rest on and off throughout shift. Plan of care is ongoing. Problem: PAIN - ADULT Goal: PT VERBALIZES/DEMONSTRATES ADEQUATE COMFORT LEVEL OR BASELINE Outcome: Progressing Problem: KNOWLEDGE DEFICIT Goal: Patient/family/caregiver demonstrates understanding of disease process, treatment plan, medications, and discharge instructions Outcome: Progressing Problem: INFECTION - ADULT Goal: Absence of infection during hospitalization Outcome: Progressing Problem: SKIN/TISSUE INTEGRITY Goal: Skin/Tissue integrity maintained or improved Outcome: Progressing Goal: Oral and Nasal mucous membranes remain intact Outcome: Progressing Problem: SAFETY ADULT Goal: Maintain a safe environment Outcome: Progressing Problem: SAFETY ADULT - RISK FOR FALL AND OR FALL INJURY Goal: Patient remains free from fall/fall injury Outcome: Progressing Problem: POTENTIAL OR ACTUAL PRESSURE INJURY-ADULT Goal: Manage sensory Perception deficits to maintain and/or improve skin integrity Outcome: Progressing Goal: Maintain optimal skin moisture to ensure or improve skin integrity Outcome: Progressing Goal: Achieve optimal activity and/or mobility to maintain or improve skin integrity Outcome: Progressing Goal: Nutrient intake appropriate for improving, restoring or maintaining skin integrity Outcome: Progressing Goal: Minimize friction and/or shear to maintain or improve skin integrity Outcome: Progressing Problem: Compromised Skin Integrity Goal: Skin/Tissue integrity maintained or improved Outcome: Progressing Goal: Oral and Nasal mucous membranes remain intact Outcome: Progressing Goal: Incisions, wounds, or drain sites healing without S/S of infection Outcome: Progressing Problem: Incontinence and/or Moisture Goal: Skin integrity is maintained or improved Outcome: Progressing Problem: RESPIRATORY - ADULT Goal: Achieves optimal ventilation and oxygenation Outcome: Progressing Problem: METABOLIC/FLUID AND ELECTROLYTES - ADULT Goal: Electrolytes maintained within normal limits Outcome: Progressing Problem: CARDIOVASCULAR - ADULT Goal: Maintains optimal cardiac output and hemodynamic stability Outcome: Progressing Goal: Achieve stable or improve cardiac rhythm Outcome: Progressing TER * Moises Gudino R.N. - 08/14/2024 4:54 AM CST Shift Goals: VSS, manage electrolytes, Remain free of falls, Monitor BP Identify possible barriers to meeting goals/advancing plan of care: acuity of illness INPATIENT SHIFT SUMMARY ORIENTATION: A&Ox3 SAFETY MEASURES: Bed Alarm ASSISTED MOBILITY: Ceiling lift and Complete assistance VITALS: Vitals assessed and stable this shift and Pt blood pressure has been elevated, see note below INTAKE: Adequate for solids and Adequate for liquids OUTPUT: Patient has been urinating adequately. Patient has indwelling catheter in place. Patient had a bowel movement today. Patient is continent of bowel but not urine. PAIN: Patient has not had any complaints of pain this shift. PRN MEDICATIONS UTILIZED THIS SHIFT: None DVT PROPHYLAXIS: Eliquis CHG/GRECO CARE NEEDS: Greco cares SHIFT EVENTS: Patient slept well through the night. KPHOS replaced Via IV UPCOMING PLAN OF CARE: VSS, Monitor BP, Remain free of falls, Monitor electrolytes, Potential Move to [facility] Problem: CARDIOVASCULAR - ADULT Goal: Maintains optimal cardiac output and hemodynamic stability Note: Pt having elevated blood pressures SBP 170-180. Around 0200 blood pressures improved SBP has been 130-150 Problem: METABOLIC/FLUID AND ELECTROLYTES - ADULT Goal: Electrolytes maintained within normal limits Note: Phosphorus replaced VIA IV due to oral replacement causing diarrhea. Problem: RESPIRATORY - ADULT Goal: Achieves optimal ventilation and oxygenation Note: Patient on room air, satting 90-95 TER * Liat Bravo M.SFiliberto, R.N. - 08/13/2024 4:01 PM CST Shift Goals: monitor respiratory status, q2 hours reposition, stable vital signs, monitor for s/s of infection Identify possible barriers to meeting goals/advancing plan of care: acuity of illness End of Shift Summary: INPATIENT SHIFT SUMMARY ORIENTATION: A&Ox3 SAFETY MEASURES: Bed Alarm and Hourly Rounding ASSISTED MOBILITY: x2 and Ceiling lift VITALS: Vitals assessed and stable this shift INTAKE: Adequate for solids and Adequate for liquids OUTPUT: Patient has been urinating adequately. Patient has indwelling catheter in place. BM today, loose stools. PAIN: Patient has not had any complaints of pain this shift. PRN MEDICATIONS UTILIZED THIS SHIFT: None DVT PROPHYLAXIS: Heparin gtt CHG/GRECO CARE NEEDS: Greco cares SHIFT EVENTS: Mag, phos, K replaced. Zosyn dced, Rocephin started. Loose stool x 2 today. Wound care completed onbuttock. Rash/redness on legs not exceeding parameters of outline, no worsening pain, heat. BP trending up in afternoon, nifedipine restarted, metoprolol 1x 50 mg given, daily metoprolol increased to100 mg. UPCOMING PLAN OF CARE: Tentative move to med surg tomorrow. Problem: INFECTION - ADULT Goal: Absence of infection during hospitalization Outcome: Progressing Problem: DISCHARGE PLANNING Goal: Patient discharge needs identified Outcome: Progressing Problem: Compromised Skin Integrity Goal: Incisions, wounds, or drain sites healing without S/S of infection Outcome: Progressing Problem: RESPIRATORY - ADULT Goal: Achieves optimal ventilation and oxygenation Outcome: Progressing TER * Codey Joshi R.N. - 08/13/2024 5:28 AM CST Shift Goals: Identify possible barriers to meeting goals/advancing plan of care: End of Shift Summary: No events overnight, BP has been elevated at times, denies pain, on room air TER * Liat Bravo M.SFiliberto, R.N. - 08/12/2024 8:12 PM CST Shift Goals: Titrate oxygen, monitor respiratory status, monitor heparin gtt, q2 hours reposition Identify possible barriers to meeting goals/advancing plan of care: acuity of illness End of Shift Summary: INPATIENT SHIFT SUMMARY ORIENTATION: A&Ox3 SAFETY MEASURES: Bed Alarm and Hourly Rounding ASSISTED MOBILITY: x2 and Ceiling lift VITALS: Vitals assessed and stable this shift INTAKE: Adequate for solids and Adequate for liquids OUTPUT: Patient has been urinating adequately. Patient has indwelling catheter in place. PAIN: Patient has not had any complaints of pain this shift. PRN MEDICATIONS UTILIZED THIS SHIFT: None DVT PROPHYLAXIS: Heparin gtt CHG/GRECO CARE NEEDS: Greco cares SHIFT EVENTS: No acute events this shift. Mag and phos replaced. Heparin gtt to stop at 2200, Eliquis to start. Zosyn added. Wound care consult ordered. UPCOMING PLAN OF CARE: Tentative discharge tomorrow. Problem: INFECTION - ADULT Goal: Absence of infection during hospitalization Outcome: Progressing Problem: DISCHARGE PLANNING Goal: Patient discharge needs identified Outcome: Progressing Problem: Compromised Skin Integrity Goal: Incisions, wounds, or drain sites healing without S/S of infection Outcome: Progressing Problem: RESPIRATORY - ADULT Goal: Achieves optimal ventilation and oxygenation Outcome: Progressing TER * Renay Zepeda R.N. - 08/12/2024 5:53 AM CST Shift Goals: Identify possible barriers to meeting goals/advancing plan of care: confusion End of Shift Summary: Pt did not sleep well during the night after Melatonin. More confused this am. He ask if people were running up and down the alonso. VSS and good urine output. TER * Kiesha Stacy R.N. - 08/11/2024 10:34 PM CST Shift Goals: Reposition every 2 hours, manage heparin drip, pain control, monitor intake and output. Identify possible barriers to meeting goals/advancing plan of care: Acuity of illness. End of Shift Summary: Alert and oriented x 3. Vitally stable on 3 L O2 via nasal cannula. Sinus rhythm with first degree HB on remote telemetry. Patient complained of shoulder pain that was treated with scheduled tylenol and PRN Voltaren gel. Melatonin given for sleep. Patient repositioned every 2 hours. 150 ml drained from blanca-tube. Greco draining clear, yellow urine. No BM this shift. Patientuses call light appropriately. Bed alarm for safety. Heparin drip infusing per SEP, recheck in AM. TER TER * Jose Schuler, R.N. - 08/11/2024 7:49 PM CST INPATIENT SHIFT SUMMARY ORIENTATION: A&Ox3 SAFETY MEASURES: Bed Alarm, Chair Alarm, and Hourly Rounding ASSISTED MOBILITY: x1 and Ceiling lift VITALS: Vitals assessed and stable this shift and elevated Blood pressure, see provider orders. INTAKE: Adequate for solids and Adequate for liquids OUTPUT: Patient has been urinating adequately. Patient had a BM today. PAIN: Pain has been well controlled with scheduled medications and Pain has been well controlled with PRNmedications DVT PROPHYLAXIS: Heparin gtt CHG/GRECO CARE NEEDS: Greco cares SHIFT EVENTS: Patient seeming to have improved cognition this shift as well as improved energy level. Patient O2 need decreasing. Maintains 95% on 4 L. UPCOMING PLAN OF CARE: Continue heparin and antibiotics. Titrate O2 as able. BP (!) 163/68 (BP Location: Right arm;Upper) Pulse 78 Temp 36.6 ??C (Temporal) Resp 18 Ht 185.4 cm Wt 125 kg SpO2 95% BMI 36.42 kg/m?? Problem: INFECTION - ADULT Goal: Absence of infection during hospitalization Outcome: Progressing Problem: POTENTIAL OR ACTUAL PRESSURE INJURY-ADULT Goal: Manage sensory Perception deficits to maintain and/or improve skin integrity Outcome: Progressing Problem: RESPIRATORY - ADULT Goal: Achieves optimal ventilation and oxygenation Outcome: Progressing TER * Eyal Grubbs RAmparoN. - 08/11/2024 5:58 AM CST INPATIENT SHIFT SUMMARY ORIENTATION: Oriented to person, Oriented to place, Disoriented to time, Pt not oriented to situation, and Patient oriented to situation at times, sometimes confused SAFETY MEASURES: Bed Alarm and Hourly Rounding ASSISTED MOBILITY: x2 VITALS: Vitals assessed and stable this shift INTAKE: Adequate for liquids and Maintenance IV fluids OUTPUT: Patient has indwelling catheter in place. Patient had a bowel movement today. PAIN: Pain has been well controlled with scheduled medications PRN MEDICATIONS UTILIZED THIS SHIFT: None DVT PROPHYLAXIS: Heparin gtt CHG/GRECO CARE NEEDS: Greco cares SHIFT EVENTS: Patient tearful several times overnight, especially with incontinent bowel movements. Attempted emotional reassurance with little help to patient. TER * Jose Schuler R.N. - 08/10/2024 7:08 PM CST INPATIENT SHIFT SUMMARY ORIENTATION: Orientation waxed and waned throughout the shift. Increasing confusion noted. SAFETY MEASURES: Bed Alarm and Hourly Rounding ASSISTED MOBILITY: x3 and Ceiling lift VITALS: Vitals assessed and stable this shift still requiring 6L O2 INTAKE: Adequate for solids and Adequate for liquids OUTPUT: Patient has been urinating adequately. Patient incontinent of bowel. 1 large BM today. PAIN: Pain has been well controlled with PRN medications DVT PROPHYLAXIS: Heparin gtt CHG/GRECO CARE NEEDS: Greco cares SHIFT EVENTS: No acute events this shift. UPCOMING PLAN OF CARE: Continue heparin drip. Continue antibiotics. BP 128/60 (BP Location: Left arm;Upper) Pulse 83 Temp (!) 35.9 ??C (Temporal) Resp 14 Ht 185.4 cm Wt 127 kg SpO2 94% BMI 36.88 kg/m?? Problem: INFECTION - ADULT Goal: Absence of infection during hospitalization Outcome: Progressing Problem: RESPIRATORY - ADULT Goal: Achieves optimal ventilation and oxygenation Outcome: Progressing TER * Allyson Streeter R.N. - 08/10/2024 6:52 AM CST Shift Goals: VSS, reposition frequently, promote rest and comfort. INPATIENT SHIFT SUMMARY ORIENTATION: Oriented to person, Oriented to place, and Disoriented to time SAFETY MEASURES: Bed Alarm and Hourly Rounding ASSISTED MOBILITY: x3, Ceiling lift, and Complete assistance VITALS: Vitally stable. Moved from 5 L NC to simple mask with 5 L due to mouth breathing at night. INTAKE: Adequate for solids and Adequate for liquids OUTPUT: Patient has indwelling catheter in place. Patient had a bowel movement today. PAIN: Pain has been well controlled with PRN medications PRN MEDICATIONS UTILIZED THIS SHIFT: Dilaudid DVT PROPHYLAXIS: Heparin gtt CHG/GRECO CARE NEEDS: Greco cares SHIFT EVENTS: Started heparin gtt back up. Pt continues to have NS running at 100 mL/hr. Pt had a couple incontinent loose BMs overnight. Pt struggled wanting to keep his pulse ox on but able to keep it on majority of the time. Pt cholecystostomy site looks good, no pain around that. Pt c/o pain in shoulders. Assessed pt BLE and they were warm to touch and red. Pt able to rest comfortably for most of night. Pthad bottom pain and given dilaudid around 0630. UPCOMING PLAN OF CARE: Monitor pain. Monitor O2 status. Consider possibility of removing gallbladder in future. Problem: PAIN - ADULT Goal: PT VERBALIZES/DEMONSTRATES ADEQUATE COMFORT LEVEL OR BASELINE Outcome: Progressing Problem: INFECTION - ADULT Goal: Absence of infection during hospitalization Outcome: Progressing Problem: POTENTIAL OR ACTUAL PRESSURE INJURY-ADULT Goal: Achieve optimal activity and/or mobility to maintain or improve skin integrity Outcome: Progressing Problem: RESPIRATORY - ADULT Goal: Achieves optimal ventilation and oxygenation Outcome: Progressing TER * Jose Schuler R.N. - 08/09/2024 7:52 PM CST INPATIENT SHIFT SUMMARY ORIENTATION: A&Ox3 and patient had difficult time orienting when first waking up but was able SAFETY MEASURES: Bed Alarm and Hourly Rounding ASSISTED MOBILITY: x5 VITALS: Vitals assessed and stable this shift and patient desats quickly when nasal cannula slips out of place. INTAKE: Patient was NPO prior to procedure, eating well following. OUTPUT: Patient has been urinating adequately. Patient had a BM today. PAIN: Pain has been well controlled with PRN medications DVT PROPHYLAXIS: Heparin gtt CHG/GRECO CARE NEEDS: CHG Bath and Greco cares SHIFT EVENTS: Patient had Cholecystostomy tube placed today. No other tube flushed and draining well. BP (!) 124/50 (BP Location: Left arm;Upper, Patient Position: Lying) Pulse 102 Temp 36 ??C (Temporal) Resp 18 Ht 185.4 cm Wt 116 kg SpO2 93% BMI 33.83 kg/m?? Problem: PAIN - ADULT Goal: PT VERBALIZES/DEMONSTRATES ADEQUATE COMFORT LEVEL OR BASELINE Outcome: Progressing Problem: INFECTION - ADULT Goal: Absence of infection during hospitalization Outcome: Progressing TER * Stephen Tafoya R.N. - 08/09/2024 4:51 AM CST Problem: PAIN - ADULT Goal: PT VERBALIZES/DEMONSTRATES ADEQUATE COMFORT LEVEL OR BASELINE Outcome: Not Progressing Problem: SAFETY ADULT Goal: Maintain a safe environment Outcome: Not Progressing Problem: POTENTIAL OR ACTUAL PRESSURE INJURY-ADULT Goal: Achieve optimal activity and/or mobility to maintain or improve skin integrity Outcome: Not Progressing INPATIENT SHIFT SUMMARY ORIENTATION: Oriented to person SAFETY MEASURES: Bed Alarm and Hourly Rounding ASSISTED MOBILITY: x2 and Ceiling lift VITALS: Vitals assessed and stable this shift INTAKE: Patient NPO OUTPUT: Patient has indwelling catheter in place. PAIN: Pain has been well controlled with PRN medications PRN MEDICATIONS UTILIZED THIS SHIFT: Tylenol DVT PROPHYLAXIS: Heparin gtt CHG/GRECO CARE NEEDS: None needed SHIFT EVENTS: Patient was verbally aggressive towards staff during shift UPCOMING PLAN OF CARE: Patient will get IR percutaneous cholecystostomy tube placement today Shift Goals: Monitor vitals Identify possible barriers to meeting goals/advancing plan of care: none End of Shift Summary: When author took over shift patient was sitting up in bed eating his supper with the help of our units HYDROGENATION OPERATOR. At the beginning of the shift RN went into room to give patients medications. Patient become agitated, ripped off his pulse ox and tele leads. RN asked patient did that, because I wanted to RN explained to patient why we needed that stuff and patient stated, I dont care and you wont be putting anything on me, you can leave me alone. Patient continued to be verbally aggressive staff by swearing, raising voice, and wavings fists at staff. During the night shiftpatient refused turns and at times refused spot checking oxygen. Patient remained agitated and verbally aggressive towards staff the entire shift. TER * Gabby Pearce R.N. - 08/08/2024 5:06 PM CST Shift Goals: VSS, manage abd pain Identify possible barriers to meeting goals/advancing plan of care: Acuity of illness. End of Shift Summary: VSS. Low urine output. Chronic greco. Echo and HIDA procedure done today. CT of chest/abd done tonight. NPO at midnight for possible cholecystostomy tube placement tomorrow. Heparin Drip and IV fluids infusing Problem: PAIN - ADULT Goal: PT VERBALIZES/DEMONSTRATES ADEQUATE COMFORT LEVEL OR BASELINE Outcome: Progressing Problem: INFECTION - ADULT Goal: Absence of infection during hospitalization Outcome: Progressing Problem: SAFETY ADULT Goal: Maintain a safe environment Outcome: Progressing Problem: POTENTIAL OR ACTUAL PRESSURE INJURY-ADULT Goal: Achieve optimal activity and/or mobility to maintain or improve skin integrity Outcome: Progressing Problem: POTENTIAL OR ACTUAL PRESSURE INJURY-ADULT Goal: Nutrient intake appropriate for improving, restoring or maintaining skin integrity Outcome: Progressing TER * Angelo Meng RAmparoN. - 08/08/2024 3:56 AM CST INPATIENT SHIFT SUMMARY ORIENTATION: Oriented to person, Oriented to place, and Disoriented to time SAFETY MEASURES: Bed Alarm, Chair Alarm, Hourly Rounding, and Met by Routine ASSISTED MOBILITY: x2 and Complete assistance VITALS: On 5L NC, BPs very labile ranging from MAPS of 61-71. Most recent: BP (!) 121/43 (08/08/24 0354) Temp 37.1 ??C (08/08/24 0041) Pulse 82 (08/08/24 0354) Resp 18 (08/08/24 0354) SpO2 91 % (08/08/24 0354) INTAKE: Patient NPO OUTPUT: Patient has indwelling catheter in place. PAIN: Patient has not had any complaints of pain this shift. PRN MEDICATIONS UTILIZED THIS SHIFT: None DVT PROPHYLAXIS: Subq Heparin CHG/GRECO CARE NEEDS: None needed SHIFT EVENTS: Assumed Pt care from 2300. Pt not oriented to situation. Pt repo q 2hr. Some redness to bottom. Heparin gtt started at 0400 at 12. Cath exchanged, UA done. 12 lead completed. SCDs applied. Chx CT done. Zosyn started after blood cultures drawn. Pt endorses concern for pain with deep breaths. TTE ordered for AM. NUC med planned for AM. TER documented in this encounter Plan of Treatment Upcoming Encounters Date Type Department Care Team (Latest Contact Info) Description 09/04/2024 10:45 AM FAGOTER Comprehensive Visit Department of General Surgery in [place], [place] [address] [place] [address] Roland Benson D.O. [address] [place] [address] Discharge Disposition: Home or Self Care Pending Results Name Type Priority Associated Diagnoses Date /Time Fungal Culture, Routine Microbiology Timed 08/09/2024 12:30 PM FAGOTER Scheduled Orders Name Type Priority Associated Diagnoses Order Schedule ECG 12 Lead ECG Routine Once for 1 Occurrences starting 08/08/2024 until 08/08/2024 IR Percutaneous Cholecystostomy Tube Exchange Imaging RAD - Routine (most inpatients and all outpatients) Cholecystitis Expected: 11/09/2024, Expires: 11/09/2025 Scheduled Referrals Name Type Priority Associated Diagnoses Orde r Schedule General Surgery - General consult (clinic) Outpatient Referral Routine Cholecystitis Expected: 08/30/2024, Expires: 11/14/2025 Post Hospital Visit Primary Care Outpatient Referral Routine Expected: 08/16/2024 (Approximate), Expires: 11/14/2025 documented as of this encounter Procedures Procedure Name Priority Date/Time Associated Diagnosis Comments MORPHOLOGY EVALUATION Routine 08/16/2024 5:44 AM FAGOTER MANUAL DIFFERENTIAL, B Routine 5:44 AM FAGOTER CBC WITH DIFFERENTIAL, B Routine 08/16/2024 5:44 AM FAGOTER BASIC METABOLIC PANEL, S/P Routine 08/16/2024 5:44 AM FAGOTER ADULT OXYGEN THERAPY Routine 08/15/2024 8:00 AM FAGOTER PULSE OXIMETRY, CONTINUOUS Routine 08/15/2024 8:00 AM FAGOTER MORPHOLOGY EVALUATION Routine 08/15/2024 5:32 AM FAGOTER MANUAL DIFFERENTIAL, B Routine 5:32 AM FAGOTER HEPATIC FUNCTION PANEL, S Routine 08/15/2024 5:32 AM FAGOTER CBC WITH DIFFERENTIAL, B Routine 08/15/2024 5:32 AM FAGOTER PHOSPHORUS (INORGANIC), S Routine 08/15/2024 5:32 AM FAGOTER MAGNESIUM, S Routine 08/15/2024 5:32 AM FAGOTER BASIC METABOLIC PANEL, S/P Routine 08/15/2024 5:32 AM FAGOTER ADULT OXYGEN THERAPY Routine 08/14/2024 8:01 PM FAGOTER PULSE OXIMETRY, CONTINUOUS Routine 08/14/2024 8:01 PM FAGOTER PHOSPHORUS (INORGANIC), S Timed 08/14/2024 2:42 PM FAGOTER ADULT OXYGEN THERAPY Routine 08/14/2024 8:00 AM FAGOTER PULSE OXIMETRY, CONTINUOUS Routine 08/14/2024 8:00 AM FAGOTER MORPHOLOGY EVALUATION Routine 08/14/2024 5:56 AM FAGOTER HEPATIC FUNCTION PANEL, S Routine 08/14/2024 5:56 AM FAGOTER CBC WITH DIFFERENTIAL, B Routine 08/14/2024 5:56 AM FAGOTER PHOSPHORUS (INORGANIC), S Routine 08/14/2024 5:56 AM FAGOTER MAGNESIUM, S Routine 08/14/2024 5:56 AM FAGOTER BASIC METABOLIC PANEL, S/P Routine 08/14/2024 5:56 AM FAGOTER PHOSPHORUS (INORGANIC), S Routine 08/13/2024 10:02 PM FAGOTER ADULT OXYGEN THERAPY Routine 08/13/2024 8:00 PM FAGOTER PULSE OXIMETRY, CONTINUOUS Routine 08/13/2024 8:00 PM FAGOTER ADULT OXYGEN THERAPY Routine 08/13/2024 8:01 AM FAGOTER PULSE OXIMETRY, CONTINUOUS Routine 08/13/2024 8:01 AM FAGOTER HEPATIC FUNCTION PANEL, S Routine 08/13/2024 5:11 AM FAGOTER CBC WITH DIFFERENTIAL, B Routine 08/13/2024 5:11 AM FAGOTER PHOSPHORUS (INORGANIC), S Routine 08/13/2024 5:11 AM FAGOTER MAGNESIUM, S Routine 08/13/2024 5:11 AM FAGOTER BASIC METABOLIC PANEL, S/P Routine 08/13/2024 5:11 AM FAGOTER ADULT OXYGEN THERAPY Routine 08/12/2024 8:00 PM FAGOTER PULSE OXIMETRY, CONTINUOUS Routine 08/12/2024 8:00 PM FAGOTER ADULT OXYGEN THERAPY Routine 08/12/2024 8:01 AM FAGOTER PULSE OXIMETRY, CONTINUOUS Routine 08/12/2024 8:01 AM FAGOTER HEPATIC FUNCTION PANEL, S Routine 08/12/2024 5:41 AM FAGOTER HEPARIN LEVEL ANTI-XA ASSAY, P Routine 08/12/2024 5:41 AM FAGOTER CBC WITH DIFFERENTIAL, B Routine 08/12/2024 5:41 AM FAGOTER PHOSPHORUS (INORGANIC), S Routine 08/12/2024 5:41 AM FAGOTER MAGNESIUM, S Routine 08/12/2024 5:41 AM FAGOTER BASIC METABOLIC PANEL, S/P Routine 08/12/2024 5:41 AM FAGOTER HEPARIN LEVEL ANTI-XA ASSAY, P Timed 08/11/2024 9:22 PM FAGOTER ADULT OXYGEN THERAPY Routine 08/11/2024 8:00 PM FAGOTER PULSE OXIMETRY, CONTINUOUS Routine 08/11/2024 8:00 PM FAGOTER HEPARIN LEVEL ANTI-XA ASSAY, P Timed 08/11/2024 1:24 PM FAGOTER ADULT OXYGEN THERAPY Routine 08/11/2024 8:00 AM FAGOTER PULSE OXIMETRY, CONTINUOUS Routine 08/11/2024 8:00 AM FAGOTER HEPATIC FUNCTION PANEL, S Routine 08/11/2024 6:00 AM FAGOTER HEPARIN LEVEL ANTI-XA ASSAY, P Routine 08/11/2024 6:00 AM FAGOTER CBC WITH DIFFERENTIAL, B Routine 08/11/2024 6:00 AM FAGOTER PHOSPHORUS (INORGANIC), S Routine 08/11/2024 6:00 AM FAGOTER MAGNESIUM, S Routine 08/11/2024 6:00 AM FAGOTER BASIC METABOLIC PANEL, S/P Routine 08/11/2024 6:00 AM FAGOTER ADULT OXYGEN THERAPY Routine 08/10/2024 8:00 PM FAGOTER PULSE OXIMETRY, CONTINUOUS Routine 08/10/2024 8:00 PM FAGOTER ADULT OXYGEN THERAPY Routine 08/10/2024 8:01 AM FAGOTER PULSE OXIMETRY, CONTINUOUS Routine 08/10/2024 8:01 AM FAGOTER HEPATIC FUNCTION PANEL, S Routine 08/10/2024 5:06 AM FAGOTER HEPARIN LEVEL ANTI-XA ASSAY, P Timed 08/10/2024 5:06 AM FAGOTER CBC WITH DIFFERENTIAL, B Routine 08/10/2024 5:06 AM FAGOTER PHOSPHORUS (INORGANIC), S Routine 08/10/2024 5:06 AM FAGOTER MAGNESIUM, S Routine 08/10/2024 5:06 AM FAGOTER BASIC METABOLIC PANEL, S/P Routine 08/10/2024 5:06 AM FAGOTER HEPARIN LEVEL ANTI-XA ASSAY, P Timed 08/09/2024 9:33 PM FAGOTER ADULT OXYGEN THERAPY Routine 08/09/2024 8:00 PM FAGOTER PULSE OXIMETRY, CONTINUOUS Routine 08/09/2024 8:00 PM FAGOTER IR PERCUTANEOUS CHOLECYSTOSTOMY TUBE PLACEMENT RAD - Routine (most inpatients and all outpatients) 08/09/2024 12:45 PM FAGOTER BACTERIAL CULTURE, AEROBIC + SUSC Timed 08/09/2024 12:30 PM FAGOTER GRAM STAIN Timed 08/09/2024 12:30 PM FAGOTER FUNGAL CULTURE, ROUTINE Timed 08/09/2024 12:30 PM FAGOTER BACTERIAL CULTURE, ANAEROBIC + SUSC Timed 08/09/2024 12:30 PM FAGOTER ADULT OXYGEN THERAPY Routine 08/09/2024 8:01 AM FAGOTER PULSE OXIMETRY, CONTINUOUS Routine 08/09/2024 8:01 AM FAGOTER HEPATIC FUNCTION PANEL, S Routine 08/09/2024 6:29 AM FAGOTER HEPARIN LEVEL ANTI-XA ASSAY, P Timed 08/09/2024 6:29 AM FAGOTER CBC WITH DIFFERENTIAL, B Routine 08/09/2024 6:29 AM FAGOTER PHOSPHORUS (INORGANIC), S Routine 08/09/2024 6:29 AM FAGOTER MAGNESIUM, S Routine 08/09/2024 6:29 AM FAGOTER BASIC METABOLIC PANEL, S/P Routine 08/09/2024 6:29 AM FAGOTER ADULT OXYGEN THERAPY Routine 08/08/2024 8:01 PM FAGOTER PULSE OXIMETRY, CONTINUOUS Routine 08/08/2024 8:[address] ABDOMEN PELVIS WITH IV CONTRAST RAD - Routine (most inpatients and all outpatients) 08/08/2024 7:00 PM FAGOTER HEPARIN LEVEL ANTI-XA ASSAY, P Timed 08/08/2024 5:01 PM FAGOTER NM HEPATOBILIARY WITH PHARM RAD - Emergent (Fastest; for the most critically ill patients) 08/08/2024 4:07 PM FAGOTER (TTE) 2D ECHO DOPPLER COLOR AND CONTRAST STAT 08/08/2024 9:01 AM FAGOTER ADULT OXYGEN THERAPY Routine 08/08/2024 8:01 AM FAGOTER PULSE OXIMETRY, CONTINUOUS Routine 08/08/2024 8:01 AM FAGOTER HEPARIN LEVEL ANTI-XA ASSAY, P Timed 08/08/2024 7:47 AM FAGOTER BACTERIA / BAUTISTA CULTURE, BLOOD STAT 08/08/2024 6:20 AM FAGOTER BACTERIA / BAUTISTA CULTURE, BLOOD STAT 08/08/2024 6:08 AM FAGOTER ECG Routine 08/08/2024 5:[address] CHEST ANGIOGRAM AND PULMONARY ARTERIES WITH IV CONTRAST RAD - Emergent (Fastest; for the most critically ill patients) 08/08/2024 5:31 AM FAGOTER URINALYSIS WITH MICROSCOPIC IF INDICATED, U STAT 08/08/2024 5:03 AM FAGOTER HC URINALYSIS AUTO WO MICRO STAT 08/08/2024 5:03 AM FAGOTER BACTERIAL CULTURE, AEROBIC + SUSC, URINE STAT 08/08/2024 5:03 AM FAGOTER US GALLBLADDER AND OR BILIARY DUCTS RAD - Emergent (Fastest; for the most critically ill patients) 08/08/2024 4:34 AM FAGOTER LACTATE FOR SEPSIS WITH REFLEX STAT 08/08/2024 4:17 AM FAGOTER PATIENT STATUS STAT 08/08/2024 4:17 AM FAGOTER ABG W/COOX STAT 08/08/2024 4:17 AM FAGOTER ACTIVATED PARTIAL THROMBOPLASTIN TIME (APTT), P STAT 08/08/2024 4:17 AM FAGOTER CBC WITH DIFFERENTIAL, B STAT 08/08/2024 4:17 AM FAGOTER C-REACTIVE PROTEIN (CRP), S/P STAT 08/08/2024 4:17 AM FAGOTER TROPONIN T, 5TH GEN, P STAT 4:17 AM FAGOTER COMPREHENSIVE METABOLIC PANEL, S/P STAT 08/08/2024 4:17 AM FAGOTER ADULT OXYGEN THERAPY Routine 08/08/2024 4:01 AM FAGOTER ADULT OXYGEN THERAPY Routine 08/08/2024 4:01 AM FAGOTER ADULT OXYGEN THERAPY Routine 08/08/2024 4:01 AM FAGOTER PULSE OXIMETRY, CONTINUOUS Routine 08/08/2024 4:01 AM FAGOTER PULSE OXIMETRY, CONTINUOUS Routine 08/08/2024 4:01 AM FAGOTER PULSE OXIMETRY, CONTINUOUS Routine 08/08/2024 4:01 AM FAGOTER documented in this encounter Results * (ABNORMAL) Manual Differential, Blood (08/16/2024 5:44 AM FAGOTER) Pathologist [facility] Segmented Neutrophils 73 50 - 75 % 08/16/2024 6:59 AM FAGOTER MKTO Lymphocytes % 18 18 - 42 % 08/16/2024 6:59 AM FAGOTER MKTO Monocytes 4 2 - 11 % 08/16/2024 6:59 AM FAGOTER MKTO Eosinophils 3 1 - 3 % 08/16/2024 6:59 AM FAGOTER MKTO Basophils 1 0 - 2 % 08/16/2024 6:59 AM FAGOTER MKTO Myelocytes 1(H) <0.5 % 08/16/2024 6:59 AM FAGOTER MKTO Manual Absolute Neutrophil Count 6.50(H) 1.56 - 6.45 x10(9)/L 08/16/2024 6:59 AM FAGOTER MKTO Comment: ----ADDITIONAL INFORMATION---- The manual absolute neutrophil count is derived from a manual differential count and therefore is not exactly comparable to the automated absolute neutrophil count. Blood 08/16/2024 5:44 AM FAGOTER 08/16/2024 5:52 AM FAGOTER us Yasmani Shea M.D. LAB BLOOD ADD-ON Final Result Performing Organization Address City/[facility]/ZIP Co de Phone Number [facility] [address] [place] [address], [address] [address] * (ABNORMAL) Morphology Evaluation (08/16/2024 5:44 AM FAGOTER) RBC Morphology See Specific Findings 08/16/2024 6:59 AM FAGOTER MKTO PLT Morphology Normal 08/16/2024 6:59 AM FAGOTER MKTO PLT Estimate Adequate Adequate 08/16/2024 6:59 AM FAGOTER MKTO Polychromasia Slight(A) Not Seen 08/16/2024 6:59 AM FAGOTER MKTO Blood 08/16/2024 5:44 AM FAGOTER 08/16/2024 5:52 AM FAGOTER us Yasmani Shea M.D. LAB BLOOD ADD-ON Final Result Performing Organization Address City/[facility]/ZIP Co de Phone Number [facility] [address] [place] [phone], [address] [address] * (ABNORMAL) Basic Metabolic Panel (08/16/2024 5:44 AM FAGOTER) Potassium, P 4.0 3.6 - 5.2 mmol/L 08/16/2024 6:15 AM FAGOTER MKTO Sodium, P 137 135 - 145 mmol/L 08/16/2024 6:15 AM FAGOTER MKTO Chloride, P 106 98 - 107 mmol/L 08/16/2024 6:15 AM FAGOTER MKTO Bicarbonate, P 21(L) 22 - 29 mmol/L 08/16/2024 6:15 AM FAGOTER MKTO Anion Gap, P 10 7 - 15 08/16/2024 6:15 AM FAGOTER MKTO BUN (Blood Urea Nitrogen), P 14 8 - 24 mg/dL 08/16/2024 6:15 AM FAGOTER MKTO Creatinine 0.71(L) 0.74 - 1.35 mg/dL 08/16/2024 6:15 AM FAGOTER MKTO Estimated GFR (eGFR) >90 >=60 mL/min/BSA 08/16/2024 6:15 AM FAGOTER MKTO Comment: Estimated GFR calculated using the 2020 CKD_EPI creatinine equation. Calcium, Total, P 8.8 8.8 - 10.2 mg/dL 08/16/2024 6:15 AM FAGOTER MKTO Glucose, P 167(H) 70 - 140 mg/dL 08/16/2024 6:15 AM FAGOTER MKTO Blood (Blood, Venous) 08/16/2024 5:44 AM FAGOTER 08/16/2024 5:52 AM FAGOTER us Yasmani Shea M.D. LAB [place] [address], [facility] MKTO [facility] [place] [address] * (ABNORMAL) CBC with Differential, Blood (08/16/2024 5:44 AM FAGOTER) Hemoglobin 12.1(L) 13.2 - 16.6 g/dL 08/16/2024 5:55 AM FAGOTER MKTO Hematocrit 37.6(L) 38.3 - 48.6 % 08/16/2024 5:55 AM FAGOTER MKTO Erythrocytes 4.38 4.35 - 5.65 x10(12)/ L 08/16/2024 5:55 AM FAGOTER MKTO MCV 85.8 78.2 - 97.9 fL 08/16/2024 5:55 AM FAGOTER MKTO RBC Distrib Width 15.7(H) 11.8 - 14.5 % 08/16/2024 5:55 AM FAGOTER MKTO Platelet Count 151 135 - 317 x10(9)/L 08/16/2024 5:55 AM FAGOTER MKTO Leukocytes 8.9 3.4 - 9.6 x10(9)/L 08/16/2024 5:55 AM FAGOTER MKTO Neutrophils See manual differential 1.56 - 6.45 x10(9)/L 08/16/2024 6:59 AM FAGOTER MKTO Blood (Blood, Venous) 08/16/2024 5:44 AM FAGOTER 08/16/2024 5:52 AM FAGOTER us Yasmani Shea M.D. LAB BLOOD ADD-ON Final Result Performing Organization Address [facility] de Phone Number [facility] [address] [place] [address], [address] [address] * (ABNORMAL) Morphology Evaluation (08/15/2024 5:32 AM FAGOTER) RBC Morphology See Specific Findings 08/15/2024 7:26 AM FAGOTER MKTO PLT Morphology Normal 08/15/2024 7:26 AM FAGOTER MKTO PLT Estimate Adequate Adequate 08/15/2024 7:26 AM FAGOTER MKTO Polychromasia Slight(A) Not Seen 08/15/2024 7:26 AM FAGOTER MKTO Blood 08/15/2024 5:32 AM FAGOTER 08/15/2024 5:45 AM FAGOTER us Vish Nicole M.D., Ph.D. LAB BLOOD ADD -ON Final Result Performing Organization Address [facility] de Phone Number [facility] [address] [place] [address] * (ABNORMAL) Manual Differential, Blood (08/15/2024 5:32 AM FAGOTER) Segmented Neutrophils 58 50 - 75 % 08/15/2024 7:26 AM FAGOTER MKTO Lymphocytes % 26 18 - 42 % 08/15/2024 7:26 AM FAGOTER MKTO Monocytes 6 2 - 11 % 08/15/2024 7:26 AM FAGOTER MKTO Eosinophils 8(H) 1 - 3 % 08/15/2024 7:26 AM [facility] Metamyelocytes 1(H) <1 % 08/15/2024 7:26 AM [facility] Myelocytes 1(H) <0.5 % 08/15/2024 7:26 AM [facility] Manual Absolute Neutrophil Count 5.86 1.56 - 6.45 x10(9)/L 08/15/2024 7:26 AM [facility]TO Comment: ----ADDITIONAL INFORMATION---- The manual absolute neutrophil count is derived from a manual differential count and therefore is not exactly comparable to the automated absolute neutrophil count. Blood 08/15/2024 5:32 AM FAGOTER 08/15/2024 5:45 AM FAGOTER Vish Nicole M.D., Ph.D. LAB BLOOD ADD -ON Final Result Performing Organization Address [facility]/ZIP Co de Phone Number [facility] [address] [place] [address], [place] [address] * Phosphorus Inorganic (08/15/2024 5:32 AM FAGOTER) Phosphorus (Inorganic), P 2.6 2.5 - 4.5 mg/dL 08/15/2024 6:06 AM FAGOTER [facility] Blood (Blood, Venous) 08/15/2024 5:32 AM FAGOTER 08/15/2024 5:45 AM FAGOTER Vish Nicole M.D., Ph.D. LAB BLOOD ADD -ON Final Result Performing Organization Address City/[facility]/ZIP Co de Phone Number [facility] [address] [place] [address], [address] [address] * Magnesium (08/15/2024 5:32 AM FAGOTER) Magnesium, P 2.1 1.7 - 2.3 mg/dL 08/15/2024 6:06 AM FAGOTER [facility] Blood (Blood, Venous) 08/15/2024 5:32 AM FAGOTER 08/15/2024 5:45 AM FAGOTER Vish Nicole M.D., Ph.D. LAB BLOOD ADD -ON Final Result [facility] [address] [place] [address] * (ABNORMAL) Hepatic Function Panel (08/15/2024 5:32 AM FAGOTER) Bilirubin, Total, P 0.4 0.0 - 1.2 mg/dL 08/15/2024 6:06 AM FAGOTER [facility] Bilirubin, Direct, P 0.2 0.0 - 0.3 mg/dL 08/15/2024 6:06 AM FAGOTER [facility] Aspartate Aminotransferase (AST), P 19 8 - 48 U/L 08/15/2024 6:06 AM FAGOTER [facility] Alanine Aminotransferase (ALT), P 24 7 - 55 U/L 08/15/2024 6:06 AM FAGOTER [facility] Alkaline Phosphatase, P 136(H) 40 - 129 U/L 08/15/2024 6:06 AM FAGOTER [facility] Albumin, P 2.9(L) 3.5 - 5.0 g/dL 08/15/2024 6:06 AM FAGOTER [facility] Protein, Total, P 6.1(L) 6.3 - 7.9 g/dL 08/15/2024 6:06 AM FAGOTER [facility] Blood (Blood, Venous) 08/15/2024 5:32 AM FAGOTER 08/15/2024 5:45 AM FAGOTER Vish Nicole M.D., Ph.D. LAB BLOOD ADD -ON Final Result [facility] [address] [place] [address], [address] [address] * (ABNORMAL) CBC with Differential, Blood (08/15/2024 5:32 AM FAGOTER) Hemoglobin 12.7(L) 13.2 - 16.6 g/dL 08/15/2024 5:48 AM FAGOTER [facility] Hematocrit 38.8 38.3 - 48.6 % 08/15/2024 5:48 AM FAGOTER [facility] Erythrocytes 4.55 4.35 - 5.65 x10(12)/ L 08/15/2024 5:48 AM FAGOTER [facility] MCV 85.3 78.2 - 97.9 fL 08/15/2024 5:48 AM FAGOTER [facility] RBC Distrib Width 15.6(H) 11.8 - 14.5 % 08/15/2024 5:48 AM FAGOTER [facility] Platelet Count 155 135 - 317 x10(9)/L 08/15/2024 5:48 AM FAGOTER [facility] Leukocytes 10.1(H) 3.4 - 9.6 x10(9)/L 08/15/2024 5:48 AM FAGOTER [facility] Neutrophils See manual differential 1.56 - 6.45 x10(9)/L 08/15/2024 7:26 AM FAGOTER [facility] Blood (Blood, Venous) 08/15/2024 5:32 AM FAGOTER 08/15/2024 5:45 AM FAGOTER Vish Nicole M.D., Ph.D. LAB BLOOD ADD -ON Final Result [facility] [address] [place] [address], [facility] MKTO [facility] [place] [address] * (ABNORMAL) Basic Metabolic Panel (08/15/2024 5:32 AM FAGOTER) Pathologist [facility] Potassium, P 4.0 3.6 - 5.2 mmol/L 08/15/2024 6:06 AM FAGOTER [facility] Sodium, P 136 135 - 145 mmol/L 08/15/2024 6:06 AM FAGOTER [facility] Chloride, P 104 98 - 107 mmol/L 08/15/2024 6:06 AM FAGOTER [facility] Bicarbonate, P 20(L) 22 - 29 mmol/L 08/15/2024 6:06 AM FAGOTER [facility] Anion Gap, P 12 7 - 15 08/15/2024 6:06 AM FAGOTER [facility] BUN (Blood Urea Nitrogen), P 10 8 - 24 mg/dL 08/15/2024 6:06 AM FAGOTER [facility] Creatinine 0.74 0.74 - 1.35 mg/dL 08/15/2024 6:06 AM FAGOTER [facility] Estimated GFR (eGFR) >90 >=60 mL/min/BSA 08/15/2024 6:06 AM FAGOTER [facility] Comment: Estimated GFR calculated using the 2020 CKD_EPI creatinine equation. Calcium, Total, P 8.7(L) 8.8 - 10.2 mg/dL 08/15/2024 6:06 AM FAGOTER [facility] Glucose, P 134 70 - 140 mg/dL 08/15/2024 6:06 AM FAGOTER [facility] Blood (Blood, Venous) 08/15/2024 5:32 AM FAGOTER 08/15/2024 5:45 AM FAGOTER us Vish Nicole M.D., Ph.D. LAB BLOOD ADD -ON Final Result Performing Organization Address City/[facility] Co de Phone Number [facility] [address] [place] [address], [place] [address] * (ABNORMAL) Phosphorus Inorganic (08/14/2024 2:42 PM FAGOTER) Phosphorus (Inorganic), P 2.3(L) 2.5 - 4.5 mg/dL 08/14/2024 3:19 PM FAGOTER [facility] Blood (Blood, Venous) 08/14/2024 2:42 PM FAGOTER 08/14/2024 2:56 PM FAGOTER us Waldo Win P.A.-C., M.S. LAB BLOOD ADD- ON Final Result Performing Organization Address City/[facility]/ZIP Co de Phone Number [facility] [address] [place] [address], [address] [place] [address] * (ABNORMAL) Morphology Evaluation (08/14/2024 5:56 AM FAGOTER) RBC Morphology See Specific Findings 08/14/2024 7:42 AM FAGOTER [facility] PLT Morphology Normal 08/14/2024 7:42 AM FAGOTER [facility] PLT Estimate Adequate Adequate 08/14/2024 7:42 AM FAGOTER [facility] Polychromasia Slight(A) Not Seen 08/14/2024 7:42 AM FAGOTER [facility] Blood 08/14/2024 5:56 AM FAGOTER 08/14/2024 6:36 AM FAGOTER Vish Nicole M.D., Ph.D. LAB BLOOD ADD -ON Final Result [facility] [address] [place] [address], [address] [address] * Phosphorus Inorganic (08/14/2024 5:56 AM FAGOTER) Phosphorus (Inorganic), P 2.7 2.5 - 4.5 mg/dL 08/14/2024 6:58 AM FAGOTER [facility] Blood (Blood, Venous) 08/14/2024 5:56 AM FAGOTER 08/14/2024 6:36 AM FAGOTER Vish Nicole M.D., Ph.D. LAB BLOOD ADD -ON Final Result [facility] [address] [place] [address], [address] [address] * Magnesium (08/14/2024 5:56 AM FAGOTER) Magnesium, P 1.7 1.7 - 2.3 mg/dL 08/14/2024 6:58 AM FAGOTER [facility] Blood (Blood, Venous) 08/14/2024 5:56 AM FAGOTER 08/14/2024 6:36 AM FAGOTER Vish Nicole M.D., Ph.D. LAB BLOOD ADD -ON Final Result Performing Organization Address [facility] Co de Phone Number [facility] [address] [place] [address] * (ABNORMAL) Hepatic Function Panel (08/14/2024 5:56 AM FAGOTER) Bilirubin, Total, P 0.3 0.0 - 1.2 mg/dL 08/14/2024 6:58 AM FAGOTER [facility] Bilirubin, Direct, P 0.2 0.0 - 0.3 mg/dL 08/14/2024 6:58 AM FAGOTER [facility] Aspartate Aminotransferase (AST), P 23 8 - 48 U/L 08/14/2024 6:58 AM FAGOTER [facility] Alanine Aminotransferase (ALT), P 32 7 - 55 U/L 08/14/2024 6:58 AM FAGOTER [facility] Alkaline Phosphatase, P 154(H) 40 - 129 U/L 08/14/2024 6:58 AM FAGOTER [facility] Albumin, P 2.9(L) 3.5 - 5.0 g/dL 08/14/2024 6:58 AM FAGOTER [facility] Protein, Total, P 6.0(L) 6.3 - 7.9 g/dL 08/14/2024 6:58 AM FAGOTER [facility] Blood (Blood, Venous) 08/14/2024 5:56 AM FAGOTER 08/14/2024 6:36 AM FAGOTER us Vish Nicole M.D., Ph.D. LAB BLOOD ADD -ON Final Result Performing Organization Address [facility]/ZIP Co de Phone Number [facility] [address] [place] [address], [place] [address] * (ABNORMAL) CBC with Differential, Blood (08/14/2024 5:56 AM FAGOTER) Hemoglobin 13.2 13.2 - 16.6 g/dL 08/14/2024 7:41 AM FAGOTER [facility] Hematocrit 40.6 38.3 - 48.6 % 08/14/2024 7:41 AM FAGOTER [facility] Erythrocytes 4.76 4.35 - 5.65 x10(12)/L 08/14/2024 7:41 AM FAGOTER [facility] MCV 85.3 78.2 - 97.9 fL 08/14/2024 7:41 AM FAGOTER [facility] RBC Distrib Width 15.4(H) 11.8 - 14.5 % 08/14/2024 7:41 AM FAGOTER [facility] Platelet Count 166 135 - 317 x10(9)/L 08/14/2024 7:41 AM FAGOTER [facility] Leukocytes 10.0(H) 3.4 - 9.6 x10(9)/L 08/14/2024 7:41 AM FAGOTER [facility] Neutrophils 7.06(H) 1.56 - 6.45 x10(9)/L 08/14/2024 7:41 AM FAGOTER [facility] Lymphocytes 1.92 0.95 - 3.07 x10(9)/L 08/14/2024 7:41 AM FAGOTER [facility] Monocytes 0.30 0.26 - 0.81 x10(9)/L 08/14/2024 7:41 AM FAGOTER [facility] Eosinophils 0.62(H) 0.03 - 0.48 x10(9)/L 08/14/2024 7:41 AM FAGOTER [facility] Basophils 0.05 0.01 - 0.08 x10(9)/L 08/14/2024 7:41 AM FAGOTER [facility] Blood (Blood, Venous) 08/14/2024 5:56 AM FAGOTER 08/14/2024 6:36 AM FAGOTER us Vish Nicole M.D., Ph.D. LAB BLOOD ADD -ON Final Result [facility] [address] [place] [address], [facility] in [address] [address] * (ABNORMAL) Basic Metabolic Panel (08/14/2024 5:56 AM FAGOTER) Potassium, P 3.9 3.6 - 5.2 mmol/L 08/14/2024 6:58 AM FAGOTER [facility] Sodium, P 137 135 - 145 mmol/L 08/14/2024 6:58 AM FAGOTER [facility] Chloride, P 104 98 - 107 mmol/L 08/14/2024 6:58 AM FAGOTER [facility] Bicarbonate, P 20(L) 22 - 29 mmol/L 08/14/2024 6:58 AM FAGOTER [facility] Anion Gap, P 13 7 - 15 08/14/2024 6:58 AM FAGOTER [facility] BUN (Blood Urea Nitrogen), P 9 8 - 24 mg/dL 08/14/2024 6:58 AM FAGOTER [facility] Creatinine 0.71(L) 0.74 - 1.35 mg/dL 08/14/2024 6:58 AM FAGOTER [facility] Estimated GFR (eGFR) >90 >=60 mL/min/BSA 08/14/2024 6:58 AM FAGOTER [facility] Comment: Estimated GFR calculated using the 2020 CKD_EPI creatinine equation. Calcium, Total, P 8.6(L) 8.8 - 10.2 mg/dL 08/14/2024 6:58 AM FAGOTER [facility] Glucose, P 140 70 - 140 mg/dL 08/14/2024 6:58 AM FAGOTER [facility] Blood (Blood, Venous) 08/14/2024 5:56 AM FAGOTER 08/14/2024 6:36 AM FAGOTER us Vish Nicole M.D., Ph.D. LAB BLOOD ADD -ON Final Result [facility] [address] [place] [address], [facility] in [address] [address] * (ABNORMAL) Phosphorus Inorganic (08/13/2024 10:02 PM FAGOTER) Phosphorus (Inorganic), P 2.1(L) 2.5 - 4.5 mg/dL 08/13/2024 10:27 PM FAGOTER [facility] Blood (Blood, Venous) 08/13/2024 10:02 PM FAGOTER 08/13/2024 10:05 PM FAGOTER us Vish Nicole M.D., Ph.D. LAB BLOOD ADD -ON Final Result Performing Organization Address [facility] Co de Phone Number [facility] [address] [place] [address], [address] [address] * (ABNORMAL) Phosphorus Inorganic (08/13/2024 5:11 AM FAGOTER) Phosphorus (Inorganic), P 2.4(L) 2.5 - 4.5 mg/dL 08/13/2024 5:49 AM FAGOTER TO Blood (Blood, Venous) 08/13/2024 5:11 AM FAGOTER 08/13/2024 5:[address] [facility] Vish Nicole M.D., Ph.D. LAB BLOOD ADD -ON Final Result Performing Organization Address [facility] Co de Phone Number [facility] [address] [place] [address], [address] [address] * Magnesium (08/13/2024 5:11 AM FAGOTER) Magnesium, P 1.8 1.7 - 2.3 mg/dL 08/13/2024 5:49 AM FAGOTER [facility] Blood (Blood, Venous) 08/13/2024 5:11 AM FAGOTER 08/13/2024 5:25 AM FAGOTER us Vish Nicole M.D., Ph.D. LAB BLOOD ADD -ON Final Result Performing Organization Address [facility] Co de Phone Number [facility] [address] [place] [address], [facility] MKTO [facility] [place] [address] [place] [address] * (ABNORMAL) Hepatic Function Panel (08/13/2024 5:11 AM FAGOTER) Bilirubin, Total, P 0.3 0.0 - 1.2 mg/dL 08/13/2024 5:49 AM FAGOTER [facility] Bilirubin, Direct, P 0.1 0.0 - 0.3 mg/dL 08/13/2024 5:49 AM FAGOTER [facility] Aspartate Aminotransferase (AST), P 37 8 - 48 U/L 08/13/2024 5:49 AM FAGOTER [facility] Alanine Aminotransferase (ALT), P 42 7 - 55 U/L 08/13/2024 5:49 AM FAGOTER [facility] Alkaline Phosphatase, P 160(H) 40 - 129 U/L 08/13/2024 5:49 AM FAGOTER [facility] Albumin, P 2.8(L) 3.5 - 5.0 g/dL 08/13/2024 5:49 AM FAGOTER [facility] Protein, Total, P 5.6(L) 6.3 - 7.9 g/dL 08/13/2024 5:49 AM FAGOTER [facility] Blood (Blood, Venous) 08/13/2024 5:11 AM FAGOTER 08/13/2024 5:25 AM FAGOTER Vsih Nicole M.D., Ph.D. LAB BLOOD ADD -ON Final Result [facility] [address] [place] [address], [facility] MKTO [facility] [place] [address] [place] [address] * (ABNORMAL) CBC with Differential, Blood (08/13/2024 5:11 AM FAGOTER) Hemoglobin 11.2(L) 13.2 - 16.6 g/dL 08/13/2024 5:30 AM FAGOTER [facility] Hematocrit 35.0(L) 38.3 - 48.6 % 08/13/2024 5:30 AM FAGOTER [facility] Erythrocytes 4.04(L) 4.35 - 5.65 x10(12)/L 08/13/2024 5:30 AM FAGOTER [facility] MCV 86.6 78.2 - 97.9 fL 08/13/2024 5:30 AM FAGOTER [facility] RBC Distrib Width 15.3(H) 11.8 - 14.5 % 08/13/2024 5:30 AM FAGOTER [facility] Platelet Count 141 135 - 317 x10(9)/L 08/13/2024 5:30 AM FAGOTER [facility] Leukocytes 7.6 3.4 - 9.6 x10(9)/L 08/13/2024 5:30 AM FAGOTER [facility] Neutrophils 5.07 1.56 - 6.45 x10(9)/L 08/13/2024 5:30 AM FAGOTER [facility] Lymphocytes 1.44 0.95 - 3.07 x10(9)/L 08/13/2024 5:30 AM FAGOTER [facility] Monocytes 0.46 0.26 - 0.81 x10(9)/L 08/13/2024 5:30 AM FAGOTER [facility] Eosinophils 0.54(H) 0.03 - 0.48 x10(9)/L 08/13/2024 5:30 AM FAGOTER [facility] Basophils 0.06 0.01 - 0.08 x10(9)/L 08/13/2024 5:30 AM FAGOTER [facility] Blood (Blood, Venous) 08/13/2024 5:11 AM FAGOTER 08/13/2024 5:25 AM FAGOTER us Vish Nicole M.D., Ph.D. LAB BLOOD ADD -ON Final Result [facility] [address] [place] [address] [place] [address] [place] [address] * (ABNORMAL) Basic Metabolic Panel (08/13/2024 5:11 AM FAGOTER) Potassium, P 3.5(L) 3.6 - 5.2 mmol/L 08/13/2024 5:49 AM FAGOTER [facility] Sodium, P 140 135 - 145 mmol/L 08/13/2024 5:49 AM FAGOTER [facility] Chloride, P 108(H) 98 - 107 mmol/L 08/13/2024 5:49 AM FAGOTER [facility] Bicarbonate, P 22 22 - 29 mmol/L 08/13/2024 5:49 AM FAGOTER [facility] Anion Gap, P 10 7 - 15 08/13/2024 5:49 AM FAGOTER [facility] BUN (Blood Urea Nitrogen), P 14 8 - 24 mg/dL 08/13/2024 5:49 AM FAGOTER [facility] Creatinine 0.84 0.74 - 1.35 mg/dL 08/13/2024 5:49 AM FAGOTER [facility] Estimated GFR (eGFR) >90 >=60 mL/min/BSA 08/13/2024 5:49 AM FAGOTER [facility] Comment: Estimated GFR calculated using the 2020 CKD_EPI creatinine equation. Calcium, Total, P 8.4(L) 8.8 - 10.2 mg/dL 08/13/2024 5:49 AM FAGOTER [facility] Glucose, P 151(H) 70 - 140 mg/dL 08/13/2024 5:49 AM FAGOTER [facility] Blood (Blood, Venous) 08/13/2024 5:11 AM FAGOTER 08/13/2024 5:25 AM FAGOTER Vish Nicole M.D., Ph.D. LAB BLOOD ADD -ON Final Result [facility] [address] [place] [address], [facility] MKTO [facility] [place] [address] * Heparin Anti-Xa Assay (08/12/2024 5:41 AM FAGOTER) Heparin Anti-Xa, P 0.60 IU/mL 2024 6:01 AM FAGOTER [facility]TO Comment: UFH therapeutic range: 0.30-0.70 IU/mL LMWH therapeutic range: 0.50-1.00 IU/mL 0.50-1.00 IU/mL for twice daily dosing 1.00-2.00 IU/mL for once daily dosing (sample obtained 4-6 hours following subcutaneous injection) LMWH prophylactic range:0.10-0.30 IU/mL ----ADDITIONAL INFORMATION---- Heparin Anti-Xa is used to measure heparin concentrations in patients receiving low molecular weight heparin (LMWH) or unfractionated heparin (UFH). Blood (Blood, Venous) 08/12/2024 5:41 AM FAGOTER 08/12/2024 5:45 AM FAGOTER Vish Nicole M.D., Ph.D. LAB BLOOD NON ADD-ON Final Result Performing Organization Address [facility] Co de Phone Number [facility] [address] [place] [address] * (ABNORMAL) Phosphorus Inorganic (08/12/2024 5:41 AM FAGOTER) Phosphorus (Inorganic), P 1.9(L) 2.5 - 4.5 mg/dL 08/12/2024 6:12 AM FAGOTER [facility] Blood (Blood, Venous) 08/12/2024 5:41 AM FAGOTER 08/12/2024 5:46 AM FAGOTER Vish Nicole M.D., Ph.D. LAB BLOOD ADD -ON Final Result Performing Organization Address City/[facility]/ZIP Co de Phone Number [facility] [address] [place] [address], [address] [address] * Magnesium (08/12/2024 5:41 AM FAGOTER) Magnesium, P 1.7 1.7 - 2.3 mg/dL 08/12/2024 6:12 AM FAGOTER [facility] Blood (Blood, Venous) 08/12/2024 5:41 AM FAGOTER 08/12/2024 5:46 AM FAGOTER Vish Nicole M.D., Ph.D. LAB BLOOD ADD -ON Final Result [facility] [address] [place] [address], [facility] [place] [address] [place] [address] * (ABNORMAL) Hepatic Function Panel (08/12/2024 5:41 AM FAGOTER) Bilirubin, Total, P 0.3 0.0 - 1.2 mg/dL 08/12/2024 6:12 AM FAGOTER [facility] Bilirubin, Direct, P 0.2 0.0 - 0.3 mg/dL 08/12/2024 6:12 AM FAGOTER [facility] Aspartate Aminotransferase (AST), P 50(H) 8 - 48 U/L 08/12/2024 6:12 AM FAGOTER [facility] Alanine Aminotransferase (ALT), P 49 7 - 55 U/L 08/12/2024 6:12 AM FAGOTER [facility] Alkaline Phosphatase, P 190(H) 40 - 129 U/L 08/12/2024 6:12 AM FAGOTER [facility] Albumin, P 2.8(L) 3.5 - 5.0 g/dL 08/12/2024 6:12 AM FAGOTER [facility] Protein, Total, P 5.9(L) 6.3 - 7.9 g/dL 08/12/2024 6:12 AM FAGOTER [facility] Blood (Blood, Venous) 08/12/2024 5:41 AM FAGOTER 08/12/2024 5:46 AM FAGOTER Vish Nicole M.D., Ph.D. LAB BLOOD ADD -ON Final Result [facility] [address] [place] [address], [facility] [place] [address] [place] [address] * (ABNORMAL) CBC with Differential, Blood (08/12/2024 5:41 AM FAGOTER) [facility] Hemoglobin 10.5(L) 13.2 - 16.6 g/dL 08/12/2024 5:49 AM FAGOTER [facility] Hematocrit 33.0(L) 38.3 - 48.6 % 08/12/2024 5:49 AM FAGOTER [facility] Erythrocytes 3.77(L) 4.35 - 5.65 x10(12)/L 08/12/2024 5:49 AM FAGOTER [facility] MCV 87.5 78.2 - 97.9 fL 08/12/2024 5:49 AM FAGOTER [facility] RBC Distrib Width 15.6(H) 11.8 - 14.5 % 08/12/2024 5:49 AM FAGOTER [facility] Platelet Count 145 135 - 317 x10(9)/L 08/12/2024 5:49 AM FAGOTER [facility] Leukocytes 7.3 3.4 - 9.6 x10(9)/L 08/12/2024 5:49 AM FAGOTER [facility] Neutrophils 5.24 1.56 - 6.45 x10(9)/L 08/12/2024 5:49 AM FAGOTER [facility] Lymphocytes 1.11 0.95 - 3.07 x10(9)/L 08/12/2024 5:49 AM FAGOTER [facility] Monocytes 0.41 0.26 - 0.81 x10(9)/L 08/12/2024 5:49 AM FAGOTER [facility] Eosinophils 0.56(H) 0.03 - 0.48 x10(9)/L 08/12/2024 5:49 AM FAGOTER [facility]TO Basophils <0.03 0.01 - 0.08 x10(9)/L 08/12/2024 5:49 AM FAGOTER [facility] Blood (Blood, Venous) 08/12/2024 5:41 AM FAGOTER 08/12/2024 5:45 AM FAGOTER us Vish Nicole M.D., Ph.D. LAB BLOOD ADD -ON Final Result [facility] [place] [address], [facility] MKTO [facility] [place] [address] [place] [address] * (ABNORMAL) Basic Metabolic Panel (08/12/2024 5:41 AM FAGOTER) Potassium, P 3.6 3.6 - 5.2 mmol/L 08/12/2024 6:12 AM FAGOTER [facility] Sodium, P 143 135 - 145 mmol/L 08/12/2024 6:12 AM FAGOTER [facility] Chloride, P 112(H) 98 - 107 mmol/L 08/12/2024 6:12 AM FAGOTER [facility] Bicarbonate, P 21(L) 22 - 29 mmol/L 08/12/2024 6:12 AM FAGOTER [facility] Anion Gap, P 10 7 - 15 08/12/2024 6:12 AM FAGOTER [facility] BUN (Blood Urea Nitrogen), P 16 8 - 24 mg/dL 08/12/2024 6:12 AM FAGOTER [facility] Creatinine 1.13 0.74 - 1.35 mg/dL 08/12/2024 6:12 AM FAGOTER [facility] Estimated GFR (eGFR) 68 >=60 mL/min/BSA 08/12/2024 6:12 AM FAGOTER [facility] Comment: Estimated GFR calculated using the 2020 CKD_EPI creatinine equation. Calcium, Total, P 8.5(L) 8.8 - 10.2 mg/dL 08/12/2024 6:12 AM FAGOTER [facility] Glucose, P 176(H) 70 - 140 mg/dL 08/12/2024 6:12 AM FAGOTER [facility] Blood (Blood, Venous) 08/12/2024 5:41 AM FAGOTER 08/12/2024 5:46 AM FAGOTER us Vish Nicole M.D., Ph.D. LAB BLOOD ADD -ON Final Result [facility] [address] [place] [address], [facility] [place] [address] [place] [address] * Heparin Anti-Xa Assay (08/11/2024 9:22 PM FAGOTER) Heparin Anti-Xa, P 0.57 IU/mL 2024 9:33 PM FAGOTER [facility] Comment: UFH therapeutic range: 0.30-0.70 IU/mL LMWH therapeutic range: 0.50-1.00 IU/mL 0.50-1.00 IU/mL for twice daily dosing 1.00-2.00 IU/mL for once daily dosing (sample obtained 4-6 hours following subcutaneous injection) LMWH prophylactic range:0.10-0.30 IU/mL ----ADDITIONAL INFORMATION---- Heparin Anti-Xa is used to measure heparin concentrations in patients receiving low molecular weight heparin (LMWH) or unfractionated heparin (UFH). Blood (Blood, Venous) 08/11/2024 9:22 PM FAGOTER 08/11/2024 9:25 PM FAGOTER Vish Nicole M.D., Ph.D. LAB BLOOD NON ADD-ON Final Result [facility] [address] [place] [address], [facility] [place] [address] * Heparin Anti-Xa Assay (08/11/2024 1:24 PM FAGOTER) Heparin Anti-Xa, P 0.63 IU/mL 2024 1:42 PM FAGOTER TO Comment: UFH therapeutic range: 0.30-0.70 IU/mL LMWH therapeutic range: 0.50-1.00 IU/mL 0.50-1.00 IU/mL for twice daily dosing 1.00-2.00 IU/mL for once daily dosing (sample obtained 4-6 hours following subcutaneous injection) LMWH prophylactic range:0.10-0.30 IU/mL ----ADDITIONAL INFORMATION---- Heparin Anti-Xa is used to measure heparin concentrations in patients receiving low molecular weight heparin (LMWH) or unfractionated heparin (UFH). Blood (Blood, Venous) 08/11/2024 1:24 PM FAGOTER 08/11/2024 1:28 PM FAGOTER us Vish Nicole M.D., Ph.D. LAB BLOOD NON ADD-ON Final Result Performing Organization Address [facility] Co de Phone Number [facility] [address] [place] [address], [place] [address] * Heparin Anti-Xa Assay (08/11/2024 6:00 AM FAGOTER) Heparin Anti-Xa, P 0.91 IU/mL 2024 6:26 AM FAGOTER [facility] Comment: UFH therapeutic range: 0.30-0.70 IU/mL LMWH therapeutic range: 0.50-1.00 IU/mL 0.50-1.00 IU/mL for twice daily dosing 1.00-2.00 IU/mL for once daily dosing (sample obtained 4-6 hours following subcutaneous injection) LMWH prophylactic range:0.10-0.30 IU/mL ----ADDITIONAL INFORMATION---- Heparin Anti-Xa is used to measure heparin concentrations in patients receiving low molecular weight heparin (LMWH) or unfractionated heparin (UFH). Blood (Blood, Venous) 08/11/2024 6:00 AM FAGOTER 08/11/2024 6:17 AM FAGOTER Vish Nicole M.D., Ph.D. LAB BLOOD NON ADD-ON Final Result Performing Organization Address [facility] Co de Phone Number [facility] [address] [place] [address], [address] [address] * (ABNORMAL) Phosphorus Inorganic (08/11/2024 6:00 AM FAGOTER) Phosphorus (Inorganic), P 1.9(L) 2.5 - 4.5 mg/dL 08/11/2024 6:53 AM FAGOTER [facility] Blood (Blood, Venous) 08/11/2024 6:00 AM FAGOTER 08/11/2024 6:17 AM FAGOTER Vish Nicole M.D., Ph.D. LAB BLOOD ADD -ON Final Result Performing Organization Address City/[facility]/ZIP Co de Phone Number [facility] [address] [place] [address], [address] [id number] * Magnesium (08/11/2024 6:00 AM FAGOTER) Magnesium, P 1.9 1.7 - 2.3 mg/dL 08/11/2024 6:53 AM FAGOTER [facility] Blood (Blood, Venous) 08/11/2024 6:00 AM FAGOTER 08/11/2024 6:17 AM FAGOTER Vish Nicole M.D., Ph.D. LAB BLOOD ADD -ON Final Result Performing Organization Address [facility] Co de Phone Number [facility] [address] [place] [address], [address] [address] * (ABNORMAL) Hepatic Function Panel (08/11/2024 6:00 AM FAGOTER) Bilirubin, Total, P 0.4 0.0 - 1.2 mg/dL 08/11/2024 6:53 AM FAGOTER [facility] Bilirubin, Direct, P 0.2 0.0 - 0.3 mg/dL 08/11/2024 6:53 AM FAGOTER [facility] Aspartate Aminotransferase (AST), P 83(H) 8 - 48 U/L 08/11/2024 6:53 AM FAGOTER [facility] Alanine Aminotransferase (ALT), P 75(H) 7 - 55 U/L 08/11/2024 6:53 AM FAGOTER [facility] Alkaline Phosphatase, P 233(H) 40 - 129 U/L 08/11/2024 6:53 AM FAGOTER [facility] Albumin, P 2.7(L) 3.5 - 5.0 g/dL 08/11/2024 6:53 AM FAGOTER [facility] Protein, Total, P 5.6(L) 6.3 - 7.9 g/dL 08/11/2024 6:53 AM FAGOTER [facility] Blood (Blood, Venous) 08/11/2024 6:00 AM FAGOTER 08/11/2024 6:17 AM FAGOTER Vish Nicole M.D., Ph.D. LAB BLOOD ADD -ON Final Result [facility] [address] [place] [address], [facility] [place] [address] [place] [address] * (ABNORMAL) CBC with Differential, Blood (08/11/2024 6:00 AM FAGOTER) Hemoglobin 11.0(L) 13.2 - 16.6 g/dL 08/11/2024 6:20 AM FAGOTER [facility] Hematocrit 34.6(L) 38.3 - 48.6 % 08/11/2024 6:20 AM FAGOTER [facility] Erythrocytes 3.87(L) 4.35 - 5.65 x10(12)/L 08/11/2024 6:20 AM FAGOTER [facility] MCV 89.4 78.2 - 97.9 fL 08/11/2024 6:20 AM FAGOTER [facility] RBC Distrib Width 15.7(H) 11.8 - 14.5 % 08/11/2024 6:20 AM FAGOTER [facility] Platelet Count 141 135 - 317 x10(9)/L 08/11/2024 6:20 AM FAGOTER [facility] Leukocytes 7.2 3.4 - 9.6 x10(9)/L 08/11/2024 6:20 AM [facility]ER [facility] Neutrophils 5.56 1.56 - 6.45 x10(9)/L 08/11/2024 6:20 AM [facility] Lymphocytes 0.72(L) 0.95 - 3.07 x10(9)/L 08/11/2024 6:20 AM [facility] Monocytes 0.30 0.26 - 0.81 x10(9)/L 08/11/2024 6:20 AM [facility] Eosinophils 0.62(H) 0.03 - 0.48 x10(9)/L 08/11/2024 6:20 AM [facility] Basophils <0.03 0.01 - 0.08 x10(9)/L 08/11/2024 6:20 AM [facility] Blood (Blood, Venous) 08/11/2024 6:00 AM FAGOTER 08/11/2024 6:16 AM FAG[facility]ER Vish Nicole M.D., Ph.D. LAB BLOOD ADD -ON Final Result [facility] [place] [address], [facility] MKTO [facility] [place] [address] [place] [address] * (ABNORMAL) Basic Metabolic Panel (08/11/2024 6:00 AM FAGOTER) Potassium, P 3.3(L) 3.6 - 5.2 mmol/L 08/11/2024 6:53 AM [facility] Sodium, P 143 135 - 145 mmol/L 08/11/2024 6:53 AM [facility] Chloride, P 110(H) 98 - 107 mmol/L 08/11/2024 6:53 AM [facility] Bicarbonate, P 19(L) 22 - 29 mmol/L 08/11/2024 6:53 AM [facility] Anion Gap, P 14 7 - 15 08/11/2024 6:53 AM [facility] BUN (Blood Urea Nitrogen), P 22 8 - 24 mg/dL 08/11/2024 6:53 AM [facility] Creatinine 1.27 0.74 - 1.35 mg/dL 08/11/2024 6:53 AM [facility] Estimated GFR (eGFR) 59(L) >=60 mL/min/BSA 08/11/2024 6:53 AM [facility] Comment: Estimated GFR calculated using the 2020 CKD_EPI creatinine equation. Calcium, Total, P 8.5(L) 8.8 - 10.2 mg/dL 08/11/2024 6:53 AM [facility]ER [facility] Glucose, P 127 70 - 140 mg/dL 08/11/2024 6:53 AM [facility] Blood (Blood, Venous) 08/11/2024 6:00 AM FAGOTER 08/11/2024 6:17 AM [facility] Result [facility] Vish Nicole M.D., Ph.D. LAB BLOOD ADD -ON Final Result Performing Organization Address City/[facility]/ZIP Co de Phone Number [facility] [address] [place] [address], [address] [address] * Heparin Anti-Xa Assay (08/10/2024 5:06 AM FAGOTER) Heparin Anti-Xa, P 0.60 IU/mL 2024 5:31 AM [facility] Comment: UFH therapeutic range: 0.30-0.70 IU/mL LMWH therapeutic range: 0.50-1.00 IU/mL 0.50-1.00 IU/mL for twice daily dosing 1.00-2.00 IU/mL for once daily dosing (sample obtained 4-6 hours following subcutaneous injection) LMWH prophylactic range:0.10-0.30 IU/mL ----ADDITIONAL INFORMATION---- Heparin Anti-Xa is used to measure heparin concentrations in patients receiving low molecular weight heparin (LMWH) or unfractionated heparin (UFH). Blood (Blood, Venous) 08/10/2024 5:06 AM FAGOTER 08/10/2024 5:19 AM [facility] Result [facility] Waldo Win P.A.-C., M.S. LAB BLOOD NON ADD-ON Final Result Performing Organization Address City/[facility]/ZIP Co de Phone Number [facility] [address] [place] [address], [address] [address] * Phosphorus Inorganic (08/10/2024 5:06 AM FAGOTER) Phosphorus (Inorganic), P 3.5 2.5 - 4.5 mg/dL 08/10/2024 5:44 AM [facility] Blood (Blood, Venous) 08/10/2024 5:06 AM FAGOTER 08/10/2024 5:19 AM [facility] Vish Nicole M.D., Ph.D. LAB BLOOD ADD -ON Final Result Performing Organization Address City/[facility] Co de Phone Number [facility] [address] [place] [address], [address] [address] * Magnesium (08/10/2024 5:06 AM FAGOTER) Magnesium, P 1.9 1.7 - 2.3 mg/dL 08/10/2024 5:44 AM [facility] Blood (Blood, Venous) 08/10/2024 5:06 AM FAGOTER 08/10/2024 5:19 AM [facility] Vish Nicole M.D., Ph.D. LAB BLOOD ADD -ON Final Result Performing Organization Address [facility] Co de Phone Number [facility] [address] [place] [address], [address] [address] * (ABNORMAL) Hepatic Function Panel (08/10/2024 5:06 AM FAGOTER) Bilirubin, Total, P 0.4 0.0 - 1.2 mg/dL 08/10/2024 5:44 AM [facility] Bilirubin, Direct, P 0.3 0.0 - 0.3 mg/dL 08/10/2024 5:44 AM [facility] Aspartate Aminotransferase (AST), P 105(H) 8 - 48 U/L 08/10/2024 5:44 AM [facility] Alanine Aminotransferase (ALT), P 83(H) 7 - 55 U/L 08/10/2024 5:44 AM [facility] Alkaline Phosphatase, P 209(H) 40 - 129 U/L 08/10/2024 5:44 AM [facility] Albumin, P 2.6(L) 3.5 - 5.0 g/dL 08/10/2024 5:44 AM [facility] Protein, Total, P 5.4(L) 6.3 - 7.9 g/dL 08/10/2024 5:44 AM [facility] Blood (Blood, Venous) 08/10/2024 5:06 AM FAGOTER 08/10/2024 5:19 AM [facility]ER us Vish Nicole M.D., Ph.D. LAB BLOOD ADD -ON Final Result [facility] [address] [place] [address], [facility] MKTO [facility] [place] [address] * (ABNORMAL) CBC with Differential, Blood (08/10/2024 5:06 AM FAGOTER) Hemoglobin 10.3(L) 13.2 - 16.6 g/dL 08/10/2024 5:23 AM [facility] Hematocrit 32.8(L) 38.3 - 48.6 % 08/10/2024 5:23 AM [facility] Erythrocytes 3.69(L) 4.35 - 5.65 x10(12)/L 08/10/2024 5:23 AM [facility] MCV 88.9 78.2 - 97.9 fL 08/10/2024 5:23 AM [facility] RBC Distrib Width 16.0(H) 11.8 - 14.5 % 08/10/2024 5:23 AM [facility] Platelet Count 159 135 - 317 x10(9)/L 08/10/2024 5:23 AM [facility] Leukocytes 9.8(H) 3.4 - 9.6 x10(9)/L 08/10/2024 5:23 AM [facility] Neutrophils 8.05(H) 1.56 - 6.45 x10(9)/L 08/10/2024 5:23 AM [facility] Lymphocytes 0.61(L) 0.95 - 3.07 x10(9)/L 08/10/2024 5:23 AM [facility] Monocytes 0.40 0.26 - 0.81 x10(9)/L 08/10/2024 5:23 AM [facility] Eosinophils 0.72(H) 0.03 - 0.48 x10(9)/L 08/10/2024 5:23 AM [facility] Basophils <0.03 0.01 - 0.08 x10(9)/L 08/10/2024 5:23 AM [facility] Blood (Blood, Venous) 08/10/2024 5:06 AM FAGOTER 08/10/2024 5:19 AM [facility]ER Vish Nicole M.D., Ph.D. LAB BLOOD ADD -ON Final Result [facility] [address] [place] [address], [facility] MKTO [facility] [place] [address] * (ABNORMAL) Basic Metabolic Panel (08/10/2024 5:06 AM FAGOTER) Potassium, P 3.8 3.6 - 5.2 mmol/L 08/10/2024 5:44 AM [facility] Sodium, P 140 135 - 145 mmol/L 08/10/2024 5:44 AM [facility] Chloride, P 108(H) 98 - 107 mmol/L 08/10/2024 5:44 AM [facility] Bicarbonate, P 22 22 - 29 mmol/L 08/10/2024 5:44 AM [facility] Anion Gap, P 10 7 - 15 08/10/2024 5:44 AM [facility] BUN (Blood Urea Nitrogen), P 36(H) 8 - 24 mg/dL 08/10/2024 5:44 AM [facility] Creatinine 2.29(H) 0.74 - 1.35 mg/dL 08/10/2024 5:44 AM [facility] Estimated GFR (eGFR) 29(L) >=60 mL/min/BSA 08/10/2024 5:44 AM [facility] Comment: Estimated GFR calculated using the 2020 CKD_EPI creatinine equation. Calcium, Total, P 7.9(L) 8.8 - 10.2 mg/dL 08/10/2024 5:44 AM [facility] Glucose, P 144(H) 70 - 140 mg/dL 08/10/2024 5:44 AM F[facility]ER [facility] Blood (Blood, Venous) 08/10/2024 5:06 AM FAGOTER 08/10/2024 5:19 AM [facility] Vish Nicole M.D., Ph.D. LAB BLOOD ADD -ON Final Result Performing Organization Address [facility] Co de Phone Number [facility] [address] [place] [address], [place] [address] * Heparin Anti-Xa Assay (08/09/2024 9:33 PM FAGOTER) Heparin Anti-Xa, P 0.34 IU/mL 2024 10:07 PM FAG[facility]ER [facility] Comment: UFH therapeutic range: 0.30-0.70 IU/mL LMWH therapeutic range: 0.50-1.00 IU/mL 0.50-1.00 IU/mL for twice daily dosing 1.00-2.00 IU/mL for once daily dosing (sample obtained 4-6 hours following subcutaneous injection) LMWH prophylactic range:0.10-0.30 IU/mL ----ADDITIONAL INFORMATION---- Heparin Anti-Xa is used to measure heparin concentrations in patients receiving low molecular weight heparin (LMWH) or unfractionated heparin (UFH). Blood (Blood, Venous) 08/09/2024 9:33 PM FAGOTER 08/09/2024 9:46 PM [facility]ER Vish Nicole M.D., Ph.D. LAB BLOOD NON ADD-ON Final Result Performing Organization Address City/[facility]/ZIP Co de Phone Number [facility] [address] [place] [address], [facility] [place] [address] [place] [address] * IR Percutaneous Cholecystostomy Tube Placement (08/09/2024 12:45 PM FAGOTER) Anatomical Region Laterality Modality Abdomen, Vascular Interventi onal RST LOS, Vascular Interventional ARZ LOS, Vascular Interventional FLA LOS N/A Digital Radiography Impressions 08/11/2024 11:43 PM FAGOTER 1. Insertion of an intercostal transhepatic 10 Salvadorean cholecystostomy drain. Narrative 08/11/2024 11:43 PM FAGOTER EXAM: IR PERCUTANEOUS CHOLECYSTOSTOMY TUBE PLACEMENT HISTORY: 74 year old male with cholecystitis and not currently a surgical candidate COMPARISON: CT abdomen/pelvis from 08/08/2024 and HIDA scan from 08/08/2024 PROCEDURAL PERSONNEL: Attending: Anuel Nunn PREPROCEDURE: Patient seen, evaluated, and history reviewed. Discussed risks, benefits, alternatives for procedure, and obtained informed consent. Patient understood the information and questions answered. Immediately prior to starting the procedure, in the presence of the assisting personnel, procedural pause was conducted to verify correct patient identity and verification of procedure to be performed, and as applicable, correct side and site, correct patient position, availability of implants, special equipment, or special requirements, and all image and specimen identification data. The roles and responsibilities of care team members were discussed. The medication list was reviewed and there are no changes to current medications. Patient education provided by a care steamfitter apprentice. Patient was ready to learn with no apparent learning barriers were identified. Post-procedure care explained; patient expressed understanding of the content. PROCEDURE DETAILS: Sedation: None. Local anesthesia was achieved with lidocaine. Sedation time: Not applicable. Estimated Blood Loss: Less than 10 mL. TECHNIQUE: Imaging guidance for drain insertion: Real-time ultrasound and fluoroscopy with permanent image storage. Access side: Right upper quadrant intercostal Catheter: 10.2 Salvadorean multipurpose pigtail drain Technique: Image guidance was used to localize a transhepatic path to the gallbladder. A 19-gauge TruGuide needle was used to access the gallbladder under real time image guidance, and images were saved to PACS. Aspiration yielded 10 mL of dark bile. A guidewire was inserted, and the tract was dilated to accommodate a 12 Salvadorean pigtail drain. The catheter was secured with suture. The catheter was connected to a gravity drainage bag. Intraprocedural or immediate post-procedural complications: None FINDINGS: Preprocedure imaging shows a hydropic gallbladder with gallbladder wall thickening and pericholecystic edema. Catheter tip location: Final image demonstrates the catheter tip to be located within the gallbladder. Additional observations: Cholecystogram shows occluded cystic duct. PLAN: - The tube must stay in place for at least 6 weeks to allow for tract maturation. If the patient becomes a candidate for cholecystectomy, the tube can be taken out at that time. - Routine cholecystostomy catheter exchange in 3 months if the patient retains the drain. Procedure Note Anuel Nunn M.D. - 08/11/2024 EXAM: IR PERCUTANEOUS CHOLECYSTOSTOMY TUBE PLACEMENT HISTORY: 74 year old male with cholecystitis and not currently a surgicalcandidate COMPARISON: CT abdomen/pelvis from 08/08/2024 and HIDA scan from08/08/2024 PROCEDURAL PERSONNEL: Attending: Anuel Nunn PREPROCEDURE: Patient seen, evaluated, and history reviewed. Discussedrisks, benefits, alternatives for procedure, and obtained informedconsent. Patient understood the information and questions answered.Immediately prior to starting the procedure, in the presence of the assisting personnel, procedural pause was conductedto verify correct patient identity and verification of procedure to beperformed, and as applicable, correct side and site, correct patientposition, availability of implants, special equipment, or special requirements, and all image and specimenidentification data. The roles and responsibilities of care team memberswere discussed. The medication list was reviewed and there are no changesto current medications. Patient education provided by a care steamfitter apprentice. Patient was ready to learn withno apparent learning barriers were identified. Post-procedure careexplained; patient expressed understanding of the content. PROCEDURE DETAILS: Sedation: None. Local anesthesia was achieved with lidocaine. Sedation time: Not applicable. Estimated Blood Loss: Less than 10 mL. TECHNIQUE: Imaging guidance for drain insertion: Real-time ultrasound and fluoroscopywith permanent image storage. Access side: Right upper quadrant intercostal Catheter: 10.2 Salvadorean multipurpose pigtail drain Technique: Image guidance was used to localize a transhepatic path to thegallbladder. A 19-gauge TruGuide needle was used to access the gallbladderunder real time image guidance, and images were saved to PACS. Aspirationyielded 10 mL of dark bile. A guidewire was inserted, and the tract was dilated to accommodate a 12French pigtail drain. The catheter was secured with suture. The catheterwas connected to a gravity drainage bag. Intraprocedural or immediate post-procedural complications: None FINDINGS: Preprocedure imaging shows a hydropic gallbladder with gallbladder wallthickening and pericholecystic edema. Catheter tip location: Final image demonstrates the catheter tip to belocated within the gallbladder. Additional observations: Cholecystogram shows occluded cystic duct. PLAN: - The tube must stay in place for at least 6 weeks to allow for tractmaturation. If the patient becomes a candidate for cholecystectomy, thetube can be taken out at that time. - Routine cholecystostomy catheter exchange in 3 months if the patientretains the drain. IMPRESSION: 1. Insertion of an intercostal transhepatic 10 Salvadorean cholecystostomydrain. Anuel Nunn M.D. IMG IR PROCEDURES Final Resul t * Bacterial Culture, Anaerobic + Susceptibility (08/09/2024 12:30 PM FAGOTER) Bacterial Culture, Anaerobic No growth after 7 days of incubation. 08/16/2024 7:54 AM [facility] Fluid (Gallbladder) 08/09/2024 12:30 PM FAGOTER 08/09/2024 12:47 PM FAGOTER Comment:Specimen Source Site : Fluid Anuel Nunn M.D. LAB MICROBIOLOGY - GENERAL OR DERABLES Final Result [facility] [address] [place] [address], [facility] MKTO [facility] [place] [address] [place] [address] * Gram Stain (08/09/2024 12:30 PM FAGOTER) Gram Stain No organisms seen. White blood cells, Few. 08/09/2024 2:25 PM [facility] Fluid (Gallbladder) 08/09/2024 12:30 PM FAGOTER 08/09/2024 12:47 PM FAGOTER Comment:Specimen Source Site : Fluid Anuel Nunn M.D. LAB MICROBIOLOGY - GENERAL OR DERABLES Final Result Performing Organization Address City/[facility] Co de Phone Number [facility] [address] [place] [address], [address] [address] * Bacterial Culture, Aerobic + Susceptibility (08/09/2024 12:30 PM FAGOTER) Bacterial Culture, Aerobic + Susc No growth after 5 days of incubation. 08/14/2024 8:51 AM FAGOTER [facility] Fluid (Gallbladder) 08/09/2024 12:30 PM FAGOTER 08/09/2024 12:47 PM FAGOTER Comment:Specimen Source Site : Fluid Anuel Nunn M.D. LAB MICROBIOLOGY - GENERAL OR DERABLES Final Result Performing Organization Address [facility] Co de Phone Number [facility] [address] [place] [address], [address] [address] * Heparin Anti-Xa Assay (08/09/2024 6:29 AM FAGOTER) Heparin Anti-Xa, P 0.58 IU/mL 2024 6:46 AM FAGOTER [facility] Comment: UFH therapeutic range: 0.30-0.70 IU/mL LMWH therapeutic range: 0.50-1.00 IU/mL 0.50-1.00 IU/mL for twice daily dosing 1.00-2.00 IU/mL for once daily dosing (sample obtained 4-6 hours following subcutaneous injection) LMWH prophylactic range:0.10-0.30 IU/mL ----ADDITIONAL INFORMATION---- Heparin Anti-Xa is used to measure heparin concentrations in patients receiving low molecular weight heparin (LMWH) or unfractionated heparin (UFH). Blood (Blood, Venous) 08/09/2024 6:29 AM FAGOTER 08/09/2024 6:38 AM FAGOTER us Vish Nicole M.D., Ph.D. LAB BLOOD NON ADD-ON Final Result Performing Organization Address City/[facility]/ZIP Co de Phone Number [facility] [address] [place] [address], [address] [address] * Phosphorus Inorganic (08/09/2024 6:29 AM FAGOTER) Phosphorus (Inorganic), P 4.5 2.5 - 4.5 mg/dL 08/09/2024 7:09 AM [facility]AG[facility]ER [facility] Blood (Blood, Venous) 08/09/2024 6:29 AM FAGOTER 08/09/2024 6:38 AM FAGOTER Vish Nicole M.D., Ph.D. LAB BLOOD ADD -ON Final Result Performing Organization Address City/[facility] Co de Phone Number [facility] [address] [place] [address], [facility] [address] [place] [address] * Magnesium (08/09/2024 6:29 AM FAGOTER) Magnesium, P 1.8 1.7 - 2.3 mg/dL 08/09/2024 7:09 AM [facility]ER [facility] Blood (Blood, Venous) 08/09/2024 6:29 AM FAGOTER 08/09/2024 6:38 AM FAGOTER Vish Nicole M.D., Ph.D. LAB BLOOD ADD -ON Final Result Performing Organization Address City/[facility] Co de Phone Number [facility] [address] [place] [address], [facility] [address] [place] [phone] * (ABNORMAL) Hepatic Function Panel (08/09/2024 6:29 AM FAGOTER) Bilirubin, Total, P 0.8 0.0 - 1.2 mg/dL 08/09/2024 7:09 AM [facility]AG[facility]ER [facility] Bilirubin, Direct, P 0.5(H) 0.0 - 0.3 mg/dL 08/09/2024 7:09 AM [facility]ER [facility] Aspartate Aminotransferase (AST), P 174(H) 8 - 48 U/L 08/09/2024 7:09 AM [facility]AG[facility]ER [facility] Alanine Aminotransferase (ALT), P 102(H) 7 - 55 U/L 08/09/2024 7:09 AM [facility]ER [facility] Alkaline Phosphatase, P 243(H) 40 - 129 U/L 08/09/2024 7:09 AM [facility]AG[facility]ER [facility] Albumin, P 2.6(L) 3.5 - 5.0 g/dL 08/09/2024 7:09 AM [facility]AG[facility]ER [facility] Protein, Total, P 6.0(L) 6.3 - 7.9 g/dL 08/09/2024 7:09 AM [facility]ER [facility] Blood (Blood, Venous) 08/09/2024 6:29 AM FAGOTER 08/09/2024 6:38 AM FAGOTER us Vish Nicole M.D., Ph.D. LAB BLOOD ADD -ON Final Result [facility] [address] [place] [address], [facility] MKTO [facility] [place] [address] * (ABNORMAL) CBC with Differential, Blood (08/09/2024 6:29 AM FAGOTER) Pathologist [facility] Hemoglobin 12.5(L) 13.2 - 16.6 g/dL 08/09/2024 6:40 AM FAGOTER [facility] Hematocrit 41.2 38.3 - 48.6 % 08/09/2024 6:40 AM FAG[facility]ER [facility] Erythrocytes 4.42 4.35 - 5.65 x10(12)/L 08/09/2024 6:40 AM FAG[facility]ER [facility] MCV 93.2 78.2 - 97.9 fL 08/09/2024 6:40 AM FAG[facility]ER [facility] RBC Distrib Width 16.0(H) 11.8 - 14.5 % 08/09/2024 6:40 AM [facility]AG[facility]ER [facility] Platelet Count 151 135 - 317 x10(9)/L 08/09/2024 6:40 AM [facility]AG[facility]ER [facility] Leukocytes 14.2(H) 3.4 - 9.6 x10(9)/L 08/09/2024 6:40 AM [facility]AG[facility]ER [facility] Neutrophils 11.99(H) 1.56 - 6.45 x10(9)/L 08/09/2024 6:40 AM [facility]AG[facility]ER [facility] Lymphocytes 0.59(L) 0.95 - 3.07 x10(9)/L 08/09/2024 6:40 AM FAG[facility]ER [facility] Monocytes 0.82(H) 0.26 - 0.81 x10(9)/L 08/09/2024 6:40 AM FAG[facility]ER [facility] Eosinophils 0.74(H) 0.03 - 0.48 x10(9)/L 08/09/2024 6:40 AM FAGOTER [facility] Basophils 0.03 0.01 - 0.08 x10(9)/L 08/09/2024 6:40 AM FAG[facility]ER [facility] Blood (Blood, Venous) 08/09/2024 6:29 AM FAGOTER 08/09/2024 6:38 AM FAGOTER Vish Nicole M.D., Ph.D. LAB BLOOD ADD -ON Final Result [facility] [place] [address], [facility] MKTO [facility] [place] [address] [place] [address] * (ABNORMAL) Basic Metabolic Panel (08/09/2024 6:29 AM FAGOTER) Potassium, P 4.2 3.6 - 5.2 mmol/L 08/09/2024 7:09 AM FAGOTER [facility] Sodium, P 137 135 - 145 mmol/L 08/09/2024 7:09 AM FAGOTER [facility] Chloride, P 102 98 - 107 mmol/L 08/09/2024 7:09 AM FAGOTER [facility] Bicarbonate, P 20(L) 22 - 29 mmol/L 08/09/2024 7:09 AM FAGOTER [facility] Anion Gap, P 15 7 - 15 08/09/2024 7:09 AM FAGOTER [facility] BUN (Blood Urea Nitrogen), P 34(H) 8 - 24 mg/dL 08/09/2024 7:09 AM FAGOTER [facility] Creatinine 2.38(H) 0.74 - 1.35 mg/dL 08/09/2024 7:09 AM FAGOTER [facility] Estimated GFR (eGFR) 28(L) >=60 mL/min/BSA 08/09/2024 7:09 AM FAGOTER [facility] Comment: Estimated GFR calculated using the 2020 CKD_EPI creatinine equation. Calcium, Total, P 8.4(L) 8.8 - 10.2 mg/dL 08/09/2024 7:09 AM FAGOTER [facility] Glucose, P 129 70 - 140 mg/dL 08/09/2024 7:09 AM FAGOTER [facility] Blood (Blood, Venous) 08/09/2024 6:29 AM FAGOTER 08/09/2024 6:38 AM FAGOTER us Vish Nicole M.D., Ph.D. LAB BLOOD ADD -ON Final Result [facility] [address] [place] [address], [facility] MKTO [facility] [place] [address] [place] [address] * CT Abdomen Pelvis with IV Contrast (08/08/2024 7:00 PM FAGOTER) Anatomical Region Laterality Modality Abdomen, Pelvis, Abdominal R ST LOS, Abdominal ARZ LOS, Abdominal FLA LOS N/A Computed Tomography 08/08/2024 7:03 PM FAGOTER Impressions 08/08/2024 7:48 PM FAGOTER Findings compatible with cholecystitis. Diffuse gallbladder wall thickening, adjacent fat stranding, and mild gallbladder distention. Narrative 08/08/2024 7:48 PM FAGOTER EXAM: CT ABDOMEN PELVIS WITH IV CONTRAST COMPARISON: CT chest today, CT abdomen and pelvis 12/14/2022, hepatobiliary scan today, gallbladder ultrasound today FINDINGS: Cyst in the hepatic dome at the junction of the right and left lobes, 6.5 cm in maximal visualized dimension, stable compared to 12/14/2022. The superior margin of the cyst is partly excluded. Mild atelectasis in the posterior lower lobes. No suspicious hepatic mass. Moderate diffuse gallbladder wall thickening and moderate adjacent fat stranding about the gallbladder extending to the ryan hepatis, and gallbladder distention up to 12 cm in length, concerning for cholecystitis. Spleen, and adrenal glands are normal. Generalized pancreatic parenchymal atrophy. No pancreatic ductal dilatation. No hydronephrosis. No suspicious renal mass. Bilateral multiple renal cysts. Generalized renal parenchymal atrophy. No ureteral dilatation. Urinary bladder is decompressed by a Greco catheter. No bowel dilatation or wall thickening. Normal appendix. No ascites. No free air. Normal caliber abdominal aorta and IVC. 2 cm umbilical hernia containing fat. Internal fixation right hip. Procedure Note Justin Gonzalez M.D. - 08/08/2024 EXAM: CT ABDOMEN PELVIS WITH IV CONTRAST COMPARISON: CT chest today, CT abdomen and pelvis 12/14/2022,hepatobiliary scan today, gallbladder ultrasound today FINDINGS: Cyst in the hepatic dome at the junction of the right and leftlobes, 6.5 cm in maximal visualized dimension, stable compared to12/14/2022. The superior margin of the cyst is partly excluded. Mildatelectasis in the posterior lower lobes. No suspicious hepatic mass. Moderate diffuse gallbladder wall thickening andmoderate adjacent fat stranding about the gallbladder extending to theporta hepatis, and gallbladder distention up to 12 cm in length,concerning for cholecystitis. Spleen, and adrenal glands are normal. Generalized pancreatic parenchymal atrophy. Nopancreatic ductal dilatation. No hydronephrosis. No suspicious renal mass.Bilateral multiple renal cysts. Generalized renal parenchymal atrophy. Noureteral dilatation. Urinary bladder is decompressed by a Greco catheter. No bowel dilatation or wallthickening. Normal appendix. No ascites. No free air. Normal caliberabdominal aorta and IVC. 2 cm umbilical hernia containing fat. Internalfixation right hip. IMPRESSION: Findings compatible with cholecystitis. Diffuse gallbladder wallthickening, adjacent fat stranding, and mild gallbladder distention. us Anuel Nunn M.D. IMG CT PROCEDURES Final Resul t * Heparin Anti-Xa Assay (08/08/2024 5:01 PM FAGOTER) Heparin Anti-Xa, P 0.49 IU/mL 2024 5:20 PM FAGOTER [facility] Comment: UFH therapeutic range: 0.30-0.70 IU/mL LMWH therapeutic range: 0.50-1.00 IU/mL 0.50-1.00 IU/mL for twice daily dosing 1.00-2.00 IU/mL for once daily dosing (sample obtained 4-6 hours following subcutaneous injection) LMWH prophylactic range:0.10-0.30 IU/mL ----ADDITIONAL INFORMATION---- Heparin Anti-Xa is used to measure heparin concentrations in patients receiving low molecular weight heparin (LMWH) or unfractionated heparin (UFH). Blood (Blood, Venous) 08/08/2024 5:01 PM FAGOTER 08/08/2024 5:10 PM FAGOTER Vish Nicole M.D., Ph.D. LAB BLOOD NON ADD-ON Final Result [facility] [address] [place] [address], [facility] [place] [address] * NM Hepatobiliary with Pharmacologic Intervention (08/08/2024 4:07 PM FAGOTER) Anatomical Region Laterality Modality Abdomen, Nuclear Medicine RS T LOS, Nuclear Medicine ARZ LOS, Nuclear Medicine FLA LOS, Nuclear Medicine N/A Nuclea r Medicine Impressions 08/08/2024 4:22 PM FAGOTER 1. No evidence of the cholecystitis or biliary obstruction. 2. Photopenic area at the dome on the right lobe of liver, recommend liver ultrasound or hepatic CT for further evaluation. Narrative 08/08/2024 4:22 PM FAGOTER EXAM: NM HEPATOBILIARY WITH PHARM COMPARISON: None TECHNIQUE: Sequential dynamic anterior planar images of the abdomen were obtained immediately after IV radiotracer injection out to 60 minutes. Additional dynamic anterior planar images of the abdomen were obtained with pharmacologic intervention using IV CCK infusion for determination of gallbladder ejection fraction. FINDINGS: Radiotracer distribution throughout the liver and biliary tree: Normal pediatric area at the dome of the right lobe. Small bowel activity visualized within 15 minutes (Normal <60 minutes). Calculated EF obtained. (Normal >38%). RADIOPHARMACEUTICAL/MEDS: Route: intravenous technetium Tc 99m mebrofenin (Tc-99m Choletec),6.98 millicurie Procedure Note Horace Brannon Jr., M.D. - 08/08/2024 EXAM: NM HEPATOBILIARY WITH PHARM COMPARISON: None TECHNIQUE: Sequential dynamic anterior planar images of the abdomen wereobtained immediately after IV radiotracer injection out to 60 minutes.Additional dynamic anterior planar images of the abdomen were obtainedwith pharmacologic intervention using IV CCK infusion for determination of gallbladder ejection fraction. FINDINGS: Radiotracer distribution throughout the liver and biliary tree: Normalpediatric area at the dome of the right lobe. Small bowel activity visualized within 15 minutes (Normal <60 minutes). Calculated EF obtained. (Normal >38%). RADIOPHARMACEUTICAL/MEDS: Route: intravenous technetium Tc 99m mebrofenin (Tc-99m Choletec),6.98 millicurie IMPRESSION: 1. No evidence of the cholecystitis or biliary obstruction. 2. Photopenic area at the dome on the right lobe of liver, recommend liverultrasound or hepatic CT for further evaluation. Josep Lomax [facility] [place] PROCEDURES Final Result * (TTE) 2D ECHO DOPPLER COLOR AND CONTRAST (08/08/2024 9:01 AM FAGOTER) Ejection Fraction 68 MC CV EIMS Mid-Ascending Aorta 35 MC CV EIMS LV Mass Index 98 MC CV EIMS LV End-Diastolic Diameter 50 MC CV EIMS LV End-Systolic Diameter 30 MC CV EIMS LV End-Diastolic Volume 83 MC CV EIMS LV End-Systolic Volume 27 MC CV EIMS MV E Velocity 0.5 MC CV EIMS MV A Velocity 0.8 MC CV EIMS MV E/A 0.63 MC CV EIMS MV e' Velocity Medial 0.05 MC CV EIMS MV e' Velocity Lateral 0.08 MC CV EIMS MV E/e' Medial 10 MC CV EIMS MV E/e' Lateral 6.3 MC CV EIMS Left ventricular stroke volume index 25 MC CV EIMS Cardiac Output 5.03 MC CV EIMS Cardiac Index 2.11 MC CV EIMS LV Interventricular Septal Wall Thickness 11 MC CV EIMS LV Posterior Wall Thickness 13 MC CV EIMS LV Relative Wall Thickness 52 MC CV EIMS RV 4-Chamber Basal Diameter 46 MC CV EIMS RV 4-Chamber Mid Diameter 44 MC CV EIMS RV 4-Chamber Length 71 MC CV EIMS TAPSE 14 MC CV EIMS Tricuspid Annular S 0.13 MC CV EIMS TR Vmax 3.17 MC CV EIMS RA Pressure 5 MC CV EIMS RV Systolic Pressure 45 MC CV EIMS AV mean gradient 3 MC CV EIMS Aortic valve area 2.9 MC CV EIMS Aortic Valve Dimensionless Index 0.7 MC CV EIMS Aortic Valve Systolic Peak Velocity 1.1 MC CV EIMS Anatomical Region Laterality Modality Echocardiography 08/08/2024 7:37 AM FAGOTER Impressions 08/08/2024 9:30 AM FAGOTER Echo performed at the patient's bedside. LEFT VENTRICLE:Normal left ventricular chamber size. Concentric remodeling (increased wall thickness to cavity ratio). Calculated 2-D biplane volumetric left ventricular ejection fraction of 68%. No regional wall motion abnormalities. Flattening of the ventricular septum. Grade 1/3 left ventricular diastolic dysfunction, consistent with low to normal left ventricular filling pressure. RIGHT VENTRICLE:Moderate-severely enlarged right ventricular chamber size. Mild-moderately reduced right ventricular systolic function. Estimated right ventricular systolic pressure 45 mmHg (right atrial pressure of 5 mmHg). ATRIA:Normal left atrial size by visual estimate. Enlarged right atrial size. CARDIAC VALVES:Trileaflet aortic valve. Mildly thickened aortic valve. No aortic valve regurgitation. Normal mitral valve. Trivial mitral valve regurgitation. Pulmonary valve not well visualized. Normal pulmonary valve systolic velocities. Trivial pulmonary valve regurgitation. Normal tricuspid valve. Trivial tricuspid valve regurgitation. OTHER ECHO FINDINGS:Normal inferior vena cava size with normal inspiratory collapse (>50%). Normal mid ascending aorta diameter of 35 mm. Upper limit of normal of the mid ascending aorta, for age, sex and BSA is 44 mm. Abdominal aorta not visualized. Imaging inadequate for detection of atrial level shunt by color flow imaging. No intracardiac mass or thrombus, but the left atrial appendage cannot be visualized adequately with transthoracic echo to exclude thrombus in this location. No pericardial effusion. Prominent epicardial fat layer. Attempts were made to optimize the echocardiographic images and two or more left ventricular segments were not visualized adequately to evaluate cardiac structure. The patient's current allergies and medications have been screened. Intravenous Definity ultrasound enhancement agent(s) administered to enhance endocardial border definition. Imaging enhancement agent administered per Echocardiography Contrast Administration Protocol Reference Document [id number] Rev 11/04/2021. Patient met an inclusion criterion and did not have contraindications in screening sections. For the complete report, see the Order-Level Documents. Narrative 08/08/2024 9:30 AM FAGOTER For the complete report, see the Order-Level Documents. Hemodynamics Heart Rate: 80 BPM Blood Pressure: 116 / 50 mmHg ECG: Sinus rhythm, 1st degree A-V block Final Impressions 1. Echo performed at the patient's bedside. 2. Normal left ventricular chamber size. 3. Calculated 2-D biplane volumetric left ventricular ejection fraction of 68%. 4. Flattening of the ventricular septum. 5. Grade 1/3 left ventricular diastolic dysfunction, consistent with low to normal left ventricular filling pressure. 6. Moderate-severely enlarged right ventricular chamber size. 7. Mild-moderately reduced right ventricular systolic function. 8. Estimated right ventricular systolic pressure 45 mmHg (right atrial pressure of 5 mmHg). 9. Trivial tricuspid valve regurgitation. 10. Normal inferior vena cava size with normal inspiratory collapse (>50%). 11. Intravenous Definity ultrasound enhancement agent(s) administered to enhance endocardial border definition. Procedure Note Isaak Bravo M.D. - 08/08/2024 For the complete report, see the Order-Level Documents. Hemodynamics Heart Rate: 80 BPM Blood Pressure: 116 / 50 mmHg ECG: Sinus rhythm, 1st degree A-V block Final Impressions 1. Echo performed at the patient's bedside. 2. Normal left ventricular chamber size. 3. Calculated 2-D biplane volumetric left ventricular ejection fraction of68%. 4. Flattening of the ventricular septum. 5. Grade 1/3 left ventricular diastolic dysfunction, consistent with lowto normal left ventricular filling pressure. 6. Moderate-severely enlarged right ventricular chamber size. 7. Mild-moderately reduced right ventricular systolic function. 8. Estimated right ventricular systolic pressure 45 mmHg (right atrialpressure of 5 mmHg). 9. Trivial tricuspid valve regurgitation. 10. Normal inferior vena cava size with normal inspiratory collapse(>50%). 11. Intravenous Definity ultrasound enhancement agent(s) administered toenhance endocardial border definition. Findings Echo performed at the patient's bedside. LEFT VENTRICLE:Normal left ventricular chamber size. Concentric remodeling(increased wall thickness to cavity ratio). Calculated 2-D biplanevolumetric left ventricular ejection fraction of 68%. No regional wallmotion abnormalities. Flattening of the ventricular septum. Grade 1/3 leftventricular diastolic dysfunction, consistent with low to normal leftventricular filling pressure. RIGHT VENTRICLE:Moderate-severely enlarged right ventricular chamber size.Mild-moderately reduced right ventricular systolic function. Estimatedright ventricular systolic pressure 45 mmHg (right atrial pressure of 5mmHg). ATRIA:Normal left atrial size by visual estimate. Enlarged right atrialsize. CARDIAC VALVES:Trileaflet aortic valve. Mildly thickened aortic valve. Noaortic valve regurgitation. Normal mitral valve. Trivial mitral valveregurgitation. Pulmonary valve not well visualized. Normal pulmonary valvesystolic velocities. Trivial pulmonary valve regurgitation. Normaltricuspid valve. Trivial tricuspid valve regurgitation. OTHER ECHO FINDINGS:Normal inferior vena cava size with normal inspiratorycollapse (>50%). Normal mid ascending aorta diameter of 35 mm. Upper limitof normal of the mid ascending aorta, for age, sex and BSA is 44 mm.Abdominal aorta not visualized. Imaging inadequate for detection of atriallevel shunt by color flow imaging. No intracardiac mass or thrombus, butthe left atrial appendage cannot be visualized adequately withtransthoracic echo to exclude thrombus in this location. No pericardialeffusion. Prominent epicardial fat layer. Attempts were made to optimizethe echocardiographic images and two or more left ventricular segmentswere not visualized adequately to evaluate cardiac structure. Thepatient's current allergies and medications have been screened.Intravenous Definity ultrasound enhancement agent(s) administered toenhance endocardial border definition. Imaging enhancement agentadministered per Echocardiography Contrast Administration ProtocolReference Document [id number] Rev 11/04/2021. Patient met an inclusioncriterion and did not have contraindications in screening sections. For the complete report, see the Order-Level Documents. Janeeka Lalito CV ECHO PROCEDURES Final Result * Heparin Anti-Xa Assay (08/08/2024 7:47 AM FAGOTER) Heparin Anti-Xa, P 0.28 IU/mL 2024 8:14 AM FAGOTER TO Comment: UFH therapeutic range: 0.30-0.70 IU/mL LMWH therapeutic range: 0.50-1.00 IU/mL 0.50-1.00 IU/mL for twice daily dosing 1.00-2.00 IU/mL for once daily dosing (sample obtained 4-6 hours following subcutaneous injection) LMWH prophylactic range:0.10-0.30 IU/mL ----ADDITIONAL INFORMATION---- Heparin Anti-Xa is used to measure heparin concentrations in patients receiving low molecular weight heparin (LMWH) or unfractionated heparin (UFH). Blood (Blood, Venous) 08/08/2024 7:47 AM FAGOTER 08/08/2024 8:04 AM FAGOTER [facility] LAB BLOOD NON ADD-ON Final Resul t Performing Organization Address City/[facility]/[place] [address] * Bacteria / Bautista Culture, Blood #2 (08/08/2024 6:20 AM FAGOTER) Pathologist [facility] Bacteria/Vannessa da Culture, Blood No growth after 5 day/s of incubation. 08/13/2024 7:05 AM FAGOTER [facility] Blood (Blood, Peripheral Draw) 08/08/2024 6:20 AM FAGOTER 08/08/2024 6:28 AM FAGOTER Comment:Specimen Source Site : Blood [facility] LAB MICROBIOLOGY - GENERAL ORDER TOMY Final Result Performing Organization Address City/[facility]/[place] [address], [address] [place] [address] * Bacteria / Bautista Culture, Blood #1 (08/08/2024 6:08 AM FAGOTER) Bacteria/Vannessa da Culture, Blood No growth after 5 day/s of incubation. 08/13/2024 7:05 AM FAGOTER [facility] Blood (Blood, Peripheral Draw) 08/08/2024 6:08 AM FAGOTER 08/08/2024 6:13 AM FAGOTER Comment:Specimen Source Site : Blood [facility] LAB MICROBIOLOGY - GENERAL ORDER TOMY Final Result Performing Organization Address City/[facility]/ZIP Co de Phone Number [facility] [address] [place] [address], [facility] [place] [address] [place] [phone] * ECG 12 Lead (08/08/2024 5:57 AM FAGOTER) Ventricular Rate ECG/Min 87 BPM MUSE ME Interval 206 ms MUSE QRSD Interval 96 ms MUSE QT Interval 362 ms MUSE QTC Interval 435 ms MUSE P [place] 50 degrees MUSE R [place] -10 degrees MUSE T Wave [place] 54 degrees MUSE 08/08/2024 5:57 AM FAGOTER 08/08/2024 5:59 AM FAGOTER Impressions MUSE - 08/08/2024 5:59 AM FAGOTER Normal sinus rhythm with 1st degree A-V block Normal ECG When compared with ECG of 14-Dec-2022 06:47, ME interval has increased Reviewed by VALE Melara Narrative Procedure Note Rodolfo Estrada M.D., Ph.D. - 08/08/2024 IMPRESSION: Normal sinus rhythm with 1st degree A-V block Normal ECG When compared with ECG of 14-Dec-2022 06:47, ME interval has increased Reviewed by VALE Melara us Janlouann [facility] ECG ORDERABLES Final Result MUSE NA * CT Chest Angiogram and Pulmonary Arteries with IV Contrast (08/08/2024 5:31 AM FAGOTER) Anatomical Region Laterality Modality Chest, Cardiovascular RST LO S, Thoracic ARZ LOS, Thoracic FLA LOS N/A Computed Tomography 08/08/2024 5:28 AM FAGOTER Impressions 08/08/2024 5:49 AM FAGOTER 1. Positive for acute pulmonary embolism. 2. Signs of right ventricular dysfunction are absent. Critical result reported to JOSEP LOMAX on 08/08/2024 5:47 AM via [employer] secure chat Narrative 08/08/2024 5:49 AM FAGOTER EXAM: CT CHEST ANGIOGRAM AND PULMONARY ARTERIES WITH IV CONTRAST Including 3D image postprocessing with or without AI assistance. COMPARISON: 12/14/2022 FINDINGS: Lower Neck / Thoracic inlet: No pathologically enlarged lymph nodes. Mediastinum: No pathologically enlarged lymph nodes. Heart/great vessels: No enlarging aneurysm or evidence of acute aortic injury. Acute left lower lobe segmental and subsegmental, left upper lobe subsegmental, and segmental and subsegmental right upper and lower lobe pulmonary artery filling defects. Lung/pleura: Pulmonary emphysema. Scattered subsegmental atelectasis. Chest wall soft tissues/axilla: No pathologically enlarged lymph nodes. No hematoma or abnormal soft tissue mass. Upper abdomen: Unremarkable. Bones: No aggressive lesion or acute fracture. Procedure Note Elder Browning M.D. - 08/08/2024 EXAM: CT CHEST ANGIOGRAM AND PULMONARY ARTERIES WITH IV CONTRAST Including 3D image postprocessing with or without AI assistance. COMPARISON: 12/14/2022 FINDINGS: Lower Neck / Thoracic inlet: No pathologically enlarged lymph nodes. Mediastinum: No pathologically enlarged lymph nodes. Heart/great vessels: No enlarging aneurysm or evidence of acute aorticinjury. Acute left lower lobe segmental and subsegmental, left upper lobesubsegmental, and segmental and subsegmental right upper and lower lobepulmonary artery filling defects. Lung/pleura: Pulmonary emphysema. Scattered subsegmental atelectasis. Chest wall soft tissues/axilla: No pathologically enlarged lymph nodes. Nohematoma or abnormal soft tissue mass. Upper abdomen: Unremarkable. Bones: No aggressive lesion or acute fracture. IMPRESSION: 1. Positive for acute pulmonary embolism. 2. Signs of right ventricular dysfunction are absent. Critical result reported to HOLLILOUANN LOMAX on 08/08/2024 5:47 AM via [employer] chat us Josep Lomax IMG CT PROCEDURES Final Result * (ABNORMAL) Microscopic Automated (08/08/2024 5:03 AM FAGOTER) White Blood Cells >100(A) /hpf 025 5:47 AM FAGOTER [facility] Comment: ----REFERENCE VALUE---- Males: 0-3 Females: 0-10 Unknown: 0-10 Red Blood Cells 3-10(A) 0 - 2 /hpf 08/08/2024 5:47 AM FAGOTER [facility] Dysmorphic Red Blood Cells <=25 <=25 % 08/08/2024 5:47 AM FAGOTER [facility] Squamous Cells Occ-3 /hpf 08/08/2024 5:47 AM FAGOTER [facility] Transitional Cells Occ-3(A) None Seen /hpf 08/08/2024 5:47 AM FAGOTER [facility] Bacteria Present(A ) None Seen 08/08/2024 5:47 AM FAGOTER [facility] Urine 08/08/2024 5:03 AM FAGOTER 08/08/2024 5:09 AM FAGOTER us Soft Results Interface LAB URINE ORDERABLES Neives l Result [facility] [address] [place] [address], [facility] MKTO [facility] [place] [address] * Bacterial Culture, Aerobic + Susceptibility, Urine (08/08/2024 5:03 AM FAGOTER) Urine Culture Urogenital microbiota, susceptibilities not performed per laboratory criteria. 08/09/2024 8:59 AM FAGOTER [facility] Urine (Urine, Indwelling Catheter) 08/08/2024 5:03 AM FAGOTER 08/08/2024 5:09 AM FAGOTER Comment:Specimen Source Site : Urine [facility] LAB MICROBIOLOGY - GENERAL ORDER TOMY Final Result Performing Organization Address City/[facility]/ZIP Co de Phone Number [facility] [address] [place] [address], [facility] MKTO [facility] [place] [address] [place] [address] * (ABNORMAL) Urinalysis with Microscopic if Indicated: Urine, Indwelling Catheter (08/08/2024 5:03 AMCST) Source Urine, Urine, Indwelling Catheter 08/08/2024 5:13 AM FAGOTER [facility] Clarity Turbid(A) Clear 08/08/2024 5:13 AM FAGOTER [facility] Color Allyson 08/08/2024 5:13 AM FAGOTER [facility] Comment: ----REFERENCE VALUE---- Colorless Yellow Allyson Blood Large(A) Negative 08/08/2024 5:13 AM FAGOTER [facility] Nitrite Negative Negative 08/08/2024 5:13 AM FAGOTER [facility] Leukocyte Esterase Moderate(A) Negative 08/08/2024 5:13 AM FAGOTER [facility] Protein 100(A) mg/dL 08/08/2024 5:13 AM FAGOTER [facility] Comment: ----REFERENCE VALUE---- Negative Trace Glucose Negative Negative mg/dL 08/08/2024 5:13 AM FAGOTER [facility] Ketone Negative Negative mg/dL 08/08/2024 5:13 AM FAGOTER [facility] Bilirubin Negative Negative 08/08/2024 5:13 AM FAGOTER [facility] pH 5.5 5.0 - 8.0 08/08/2024 5:13 AM FAGOTER [facility] Specific [place] >1.035(A) 1.001 - 1.035 08/08/2024 5:13 AM FAGOTER [facility] Urobilinogen 1.0 0.2 - 1.0 mg/dL 08/08/2024 5:13 AM FAGOTER [facility] Urine (Urine, Indwelling Catheter) 08/08/2024 5:03 AM FAGOTER 08/08/2024 5:09 AM FAGOTER [facility] LAB URINE ORDERABLES Final Resul t [facility] [address] [place] [address], [facility] MKTO [facility] [place] [address] [place] [address] * US Gallbladder and or Biliary Ducts (08/08/2024 4:34 AM FAGOTER) Anatomical Region Laterality Modality Abdomen, Ultrasound RST LOS, Ultrasound ARZ LOS, Ultrasound FLA LOS N/A Ultrasound Impressions 08/08/2024 4:47 AM FAGOTER Somewhat limited visualization as above, with findings equivocal for acute cholecystitis. Narrative 08/08/2024 4:47 AM FAGOTER EXAM: US GALLBLADDER AND OR BILIARY DUCTS COMPARISON: 12/14/2022 FINDINGS: Somewhat limited evaluation due to overlying bowel gas, patient body habitus, and limited patient mobility. Gallbladder: Mild gallbladder wall thickening. Indeterminate sonographic Griffith sign. Trace pericholecystic fluid. Intrahepatic ducts: Not dilated. Common duct: Not dilated. Aorta: Normal caliber. Hepatic steatosis. Procedure Note Elder Browning M.D. - 08/08/2024 EXAM: US GALLBLADDER AND OR BILIARY DUCTS COMPARISON: 12/14/2022 FINDINGS: Somewhat limited evaluation due to overlying bowel gas, patientbody habitus, and limited patient mobility. Gallbladder: Mild gallbladder wall thickening. Indeterminate sonographicMurphy sign. Trace pericholecystic fluid. Intrahepatic ducts: Not dilated. Common duct: Not dilated. Aorta: Normal caliber. Hepatic steatosis. IMPRESSION: Somewhat limited visualization as above, with findings equivocal for acutecholecystitis. Josep Lomax IMG US PROCEDURES Final Result * (ABNORMAL) Troponin T, 5th Generation (08/08/2024 4:17 AM FAGOTER) Troponin T, 5th gen 54(H) <=15 ng/L 08/08/2024 5:18 AM FAGOTER [facility] Blood (Blood, Venous) 08/08/2024 4:17 AM FAGOTER 08/08/2024 5:03 AM FAGOTER us Janeeka [facility] LAB BLOOD ADD-ON Final Result Performing Organization Address City/[facility]/ZIP Co de Phone Number [facility] [address] [place] [address], [address] [address] * Patient Status (08/08/2024 4:17 AM FAGOTER) O2 Flow 5.0 L/min 08/08/2024 4:22 AM FAGOTER [facility] Spont. breaths/min CANCELED DEFAULT 08/08/2024 4:25 AM FAGOTER [facility] Comment: Required information was not provided. Result canceled by the ancillary. Blood 08/08/2024 4:17 AM FAGOTER 08/08/2024 4:21 AM FAGOTER us Soft Results Interface LAB BLOOD NON ADD-ON Nieves l Result Performing Organization Address [facility]/ZIP Co de Phone Number [facility] [address] [place] [address], [address] [address] * APTT (Activated Partial Thromboplastin Time) (08/08/2024 4:17 AM FAGOTER) [facility] Activated Partial Thrombopl Time, P 32 25 - 37 sec 08/08/2024 4:32 AM FAGOTER [facility] Blood (Blood, Venous) 08/08/2024 4:17 AM FAGOTER 08/08/2024 4:21 AM FAGOTER us Janeeka [facility] LAB BLOOD ADD-ON Final Result Performing Organization Address City/[facility]/ZIP Co de Phone Number [facility] [address] [place] [address], [address] [address] * Lactate for Sepsis with Reflex (08/08/2024 4:17 AM FAGOTER) Pathologist [facility] Lactate, B 1.2 0.5 - 2.2 mmol/L 08/08/2024 4:25 AM FAGOTER [facility] Blood (Blood, Venous) 08/08/2024 4:17 AM FAGOTER 08/08/2024 4:21 AM FAGOTER [facility] LAB BLOOD NON ADD-ON Final Resul t Performing Organization Address City/[facility]/ZIP Co de Phone Number [facility] [address] [place] [address], [facility] [address] [place] [address] * (ABNORMAL) CRP (C-Reactive Protein) (08/08/2024 4:17 AM FAGOTER) C-Reactive Protein (CRP), P 424.0(H) <5.0 mg/L 08/08/2024 4:59 AM FAGOTER [facility] Blood (Blood, Venous) 08/08/2024 4:17 AM FAGOTER 08/08/2024 4:21 AM FAGOTER [facility] LAB BLOOD ADD-ON Final Result Performing Organization Address City/[facility]/ZIP Co de Phone Number [facility] [address] [place] [address], [facility] [address] [place] [address] * (ABNORMAL) Blood Gas with Coox, Arterial (08/08/2024 4:17 AM FAGOTER) P O2 65(L) 83 - 108 mm Hg 08/08/2024 4:25 AM FAGOTER [facility] P CO2 41 35 - 48 mm Hg 08/08/2024 4:25 AM FAGOTER [facility] pH 7.40 7.35 - 7.45 pH 08/08/2024 4:25 AM FAGOTER [facility] Base Excess 0 -2 - 3 mmol/L 08/08/2024 4:25 AM FAGOTER [facility] HCO3 24 22 - 26 mmol/L 08/08/2024 4:25 AM FAGOTER [facility] Hemoglobin, Venous 13.7 13.2 - 16.6 g/dL 08/08/2024 4:25 AM FAGOTER [facility] O2Hb 89.2(L) 94.0 - 98.0 % 08/08/2024 4:25 AM FAGOTER [facility] COHb 2.5 <3.0 % 08/08/2024 4:25 AM FAGOTER [facility] MetHb 0.8 <1.5 % 08/08/2024 4:25 AM FAGOTER [facility] CtO2 17.1(L) 18.0 - 21.0 vol % 08/08/2024 4:25 AM FAGOTER [facility] Arterial Sample Site R-Radial 08/08/2024 4:25 AM FAGOTER [facility] Comment:Ran's test not don e. Blood (Blood, Arterial) 08/08/2024 4:17 AM FAGOTER 08/08/2024 4:21 AM FAGOTER us Josep Lomax LAB BLOOD NON ADD-ON Final Resul t [facility] [address] [place] [address], [facility] MKTO [facility] [place] [address] [place] [address] * (ABNORMAL) Comprehensive Metabolic Panel (08/08/2024 4:17 AM FAGOTER) Potassium, P 4.5 3.6 - 5.2 mmol/L 08/08/2024 4:40 AM FAGOTER MKTO Sodium, P 136 135 - 145 mmol/L 08/08/2024 4:40 AM FAGOTER MKTO Chloride, P 102 98 - 107 mmol/L 08/08/2024 4:40 AM FAGOTER MKTO Bicarbonate, P 20(L) 22 - 29 mmol/L 08/08/2024 4:40 AM FAGOTER MKTO Anion Gap, P 14 7 - 15 08/08/2024 4:40 AM FAGOTER MKTO BUN (Blood Urea Nitrogen), P 23 8 - 24 mg/dL 08/08/2024 4:40 AM FAGOTER MKTO Creatinine 1.52(H) 0.74 - 1.35 mg/dL 08/08/2024 4:40 AM FAGOTER MKTO Estimated GFR (eGFR) 48(L) >=60 mL/min/BS A 08/08/2024 4:40 AM FAGOTER MKTO Comment: Estimated GFR calculated using the 2020 CKD_EPI creatinine equation. Calcium, Total, P 8.8 8.8 - 10.2 mg/dL 08/08/2024 4:40 AM FAGOTER MKTO Glucose, P 195(H) 70 - 140 mg/dL 08/08/2024 4:40 AM FAGOTER MKTO Protein, Total, P 6.5 6.3 - 7.9 g/dL 08/08/2024 4:40 AM FAGOTER MKTO Albumin, P 3.0(L) 3.5 - 5.0 g/dL 08/08/2024 4:40 AM FAGOTER MKTO Aspartate Aminotransferase (AST), P 34 8 - 48 U/L 08/08/2024 4:40 AM FAGOTER MKTO Alkaline Phosphatase, P 122 40 - 129 U/L 08/08/2024 4:40 AM FAGOTER MKTO Alanine Aminotransferase (ALT), P 25 7 - 55 U/L 08/08/2024 4:40 AM FAGOTER MKTO Bilirubin, Total, P 0.9 0.0 - 1.2 mg/dL 08/08/2024 4:40 AM FAGOTER MKTO Blood (Blood, Venous) 08/08/2024 4:17 AM FAGOTER 08/08/2024 4:21 AM FAGOTER Josep Lomax LAB BLOOD ADD-ON Final Result [facility] [address] [place] [id number], [facility] MKTO [facility] in [address] [address] * (ABNORMAL) CBC with Differential, Blood (08/08/2024 4:17 AM FAGOTER) Hemoglobin 13.3 13.2 - 16.6 g/dL 08/08/2024 4:24 AM FAGOTER MKTO Hematocrit 41.4 38.3 - 48.6 % 08/08/2024 4:24 AM FAGOTER MKTO Erythrocytes 4.71 4.35 - 5.65 x10(12)/L 08/08/2024 4:24 AM FAGOTER MKTO MCV 87.9 78.2 - 97.9 fL 08/08/2024 4:24 AM FAGOTER MKTO RBC Distrib Width 15.9(H) 11.8 - 14.5 % 08/08/2024 4:24 AM FAGOTER MKTO Platelet Count 172 135 - 317 x10(9)/L 08/08/2024 4:24 AM FAGOTER MKTO Leukocytes 16.7(H) 3.4 - 9.6 x10(9)/L 08/08/2024 4:24 AM FAGOTER MKTO Neutrophils 15.71(H) 1.56 - 6.45 x10(9)/L 08/08/2024 4:24 AM FAGOTER MKTO Lymphocytes 0.20(L) 0.95 - 3.07 x10(9)/L 08/08/2024 4:24 AM FAGOTER MKTO Monocytes 0.46 0.26 - 0.81 x10(9)/L 08/08/2024 4:24 AM FAGOTER MKTO Eosinophils 0.28 0.03 - 0.48 x10(9)/L 08/08/2024 4:24 AM FAGOTER MKTO Basophils <0.03 0.01 - 0.08 x10(9)/L 08/08/2024 4:24 AM FAGOTER MKTO Blood (Blood, Venous) 08/08/2024 4:17 AM FAGOTER 08/08/2024 4:21 AM FAGOTER Josep Lomax LAB BLOOD ADD-ON Final Result [facility] [address] [place] [address], [facility] MKTO [facility] [place] [address] documented in this encounter Visit Diagnoses Diagnosis Embolus Pulmonary (HCC)- Primary Cholecystitis Embolus Pulmonary (HCC) Paraplegia (HCC) Multiple Sclerosis (HCC) documented in this encounter Admitting Diagnoses Diagnosis Embolus Pulmonary (HCC) documented in this encounter Administered Medications Inactive Administered Medications - up to 3 most recent administrations Medication Order MAR Action Action Date Dose Rate Site acetaminophen tablet 1,000 mg (TylenoL) 1,000 mg, oral, 3 times daily, First dose on Jayla 08/08/24 at 0900 Given 08/16/2024 12:43 PM FAGOTER 1,000 mg Given 08/16/2024 8:13 AM FAGOTER 1,000 mg Given 08/15/2024 8:24 PM FAGOTER 1,000 mg acetylcysteine 200 mg/mL solution 600 mg (Mucomyst) 600 mg, oral, 2 times daily, First dose on Mon08/08/24 at 1715, For 3 doses Given 08/09/2024 9:43 PM FAGOTER 600 mg Given 08/09/2024 10:42 AM FAGOTER 600 mg apixaban tablet 10 mg (Eliquis) 10 mg, oral, 2 times daily, First dose on Mon08/12/24 at 2100, For 14 doses Given 08/16/2024 8:13 AM FAGOTER 10 mg Given 08/15/2024 8:24 PM FAGOTER 10 mg Given 08/15/2024 9:23 AM FAGOTER 10 mg apixaban tablet 5 mg (Eliquis) 5 mg, oral, 2 times daily, First dose on Mon08/19/[address] tablet 81 mg 81 mg, oral, Daily, First dose on Mon08/08/24 at 0900, Swallow whole. Do NOT crush, chew, or split tablet. Given 08/16/2024 8:13 AM FAGOTER 81 mg Given 08/15/2024 9:21 AM FAGOTER 81 mg Given 08/14/2024 8:21 AM FAGOTER 81 mg atorvastatin tablet 40 mg (Lipitor) 40 mg, oral, Daily at bedtime, First dose on Mon08/08/24 at 0330 Given 08/15/2024 8:24 PM FAGOTER 40 mg Given 08/14/2024 8:30 PM FAGOTER 40 mg Given 08/13/2024 8:35 PM FAGOTER 40 mg bacitracin 500 unit/gram ointment 1 Application 1 Application, topical, 2 times daily, First dose on Mon08/08/24 at 0900 Given 08/16/2024 11:18 AM FAGOTER 1 Application Given 08/15/2024 8:25 PM FAGOTER 1 Application Given 08/15/2024 9:23 AM FAGOTER 1 Application baclofen tablet 10 mg (LioresaL) 10 mg, oral, 2 times daily, First dose on Mon08/08/24 at 0900 Given 08/16/2024 8:13 AM FAGOTER 10 mg Given 08/15/2024 8:24 PM FAGOTER 10 mg Given 08/15/2024 9:22 AM FAGOTER 10 mg baclofen tablet 10 mg (LioresaL) 10 mg, oral, Once, On Mon08/09/24 at 1415, For 1 dose Given 08/09/2024 2:14 PM FAGOTER 10 mg calcium citrate-vitamin D3 315 mg-5 mcg (200 Unit) per tablet 1 tablet (Citracal + D3) 1 tablet, oral, Daily with morning meal, First dose on Mon08/08/24 at 0800, calcium citrate/vitamin D3 (same frequency) was interchanged for calcium citrate/vitamin D 315 mg/250 units Given 08/16/2024 8:13 AM FAGOTER 1 tablet Given 08/15/2024 9:21 AM FAGOTER 1 tablet Given 08/14/2024 9:10 AM FAGOTER 1 tablet cefTRIAXone injection 2 g (Rocephin) 2 g, intravenous, Daily, First dose on Mon08/13/24 at 1100, If needed, reconstitute vial per package insert instructions. See IVAG for administration guidelines., Drug Monitoring Program: Pharmacist to adjust medication dosing based on indication and drug clearance factors., Indications: Skin and soft tissue infectionIndications:Skin and soft tissue infection Given 08/16/2024 8:07 AM FAGOTER 2 g Given 08/15/2024 9:23 AM FAGOTER 2 g Given 08/14/2024 8:21 AM FAGOTER 2 g clotrimazole 1 % cream 1 Application (Lotrimin) 1 Application, topical, 2 times daily, First dose on Mon08/08/24 at 0900 Given 08/16/2024 11:18 AM FAGOTER 1 Application Given 08/15/2024 8:25 PM FAGOTER 1 Application Given 08/15/2024 9:23 AM FAGOTER 1 Application diclofenac sodium 1 % gel 2 g (Voltaren) 2 g, topical, 4 times daily PRN, pain, Starting on Mon08/08/24 at 0305, Do not exceed 32 g per day, over all affected joints. Use dosing card to measure product. 2 g = 2.25 inches, 4 gm = 4.5 inches. Rinse dosing card after use and save for each administration. Given 08/16/2024 8:18 AM FAGOTER 2 g Given 08/15/2024 4:19 PM FAGOTER 2 g Given 08/11/2024 8:17 PM FAGOTER 2 g diphenhydrAMINE capsule 25 mg (BenadryL) 25 mg, oral, Bedtime PRN, itching, allergies, Starting on Mon08/14/24 at 2149 Given 08/14/2024 10:14 PM FAGOTER 25 mg heparin (porcine) 1,000 unit/mL injection 4,600 Units 4,600 Units (rounded from 4,640 Units = 40 Units/kg 116 kg Dosing weight), intravenous, As needed, antiXa level 0.1-0.2, Starting on Mon08/09/24 at 1902, Intensity type: High, Anti-Xa < 0.1: Loading Dose (Units/kg): 80, Anti-Xa 0.1-0.2: Loading Dose (Units/kg): 40, Anti-Xa > 0.2: Loading Dose (Units/kg): 0 heparin (porcine) 1,000 unit/mL injection 9,300 Units 9,300 Units (rounded from 9,280 Units = 80 Units/kg 116 kg Dosing weight), intravenous, As needed, antiXa level less than 0.1, Starting on Mon08/09/24 at 1902, Intensity type: High, Anti-Xa < 0.1: Loading Dose (Units/kg): 80, Anti-Xa 0.1-0.2: Loading Dose (Units/kg): 40, Anti-Xa > 0.2: Loading Dose (Units/kg): 0 heparin (porcine) 100 Units/mL in NaCl 0.45% 250 mL infusion 0-30 Units/kg/hr 116 kg Dosing weight (0-34.8 mL/hr), intravenous, Continuous, Starting on Mon08/08/24 at 0430, 25,000 Units in 250 mL, Intensity type: High, Starting Dose (units/kg/hr): 12, Anti-Xa < 0.1: Adjust Dose (Units/kg/hr) by: 4, Anti-Xa < 0.1: Loading Dose (Units/kg): 80, Anti-Xa < 0.1: Repeat anti-Xa: 6 hours, Anti-Xa 0.1-0.2: Adjust Dose (Units/kg/hr) by: 2, Anti-Xa 0.1-0.2: Loading Dose (Units/kg): 40, Anti-Xa 0.1-0.2: Repeat anti-Xa: 6 hours, Anti-Xa 0.21-0.29: Adjust Dose (Units/kg/hr) by: 2, Anti-Xa 0.21-0.29: Repeat anti-Xa: 6 hours, Anti-Xa > 0.2: Loading Dose (Units/kg): 0, Anti-Xa 0.3-0.7: Adjust Dose (Units/kg/hr) by: 0, Anti-Xa 0.3-0.7: Repeat anti-Xa: 6 hours. If two consecutive therapeutic result, re-check next AM., Anti-Xa 0.71-0.99: Hold Infusion: Stop infusion for 1 hour, Anti-Xa 0.71-0.99: Adjust Dose (Units/kg/hr) by: -2, Anti-Xa 0.71-0.99: Repeat anti-Xa: 6 hours after Heparin resumed, Anti-Xa 1-1.5: Hold Infusion: Stop infusion for 2 hours, Anti-Xa 1-1.5: Adjust Dose (Units/kg/hr) by: -4, Anti-Xa 1-1.5: Repeat anti-Xa: 6 hours after Heparin resumed, Anti-Xa > 1.5: Hold Infusion: Stop infusion until anti-xa < 1.2, Anti-Xa > 1.5: Adjust Dose (Units/kg/hr) by: -4, Anti-Xa > 1.5: Repeat anti-Xa: every 2 hours until anti-Xa less than 1.2 Rate/Dose Change 08/09/2024 6:47 AM FAGOTER 14 Units/kg/hr 16.2 mL/hr Rate/Dose Verify 08/08/2024 5:52 PM FAGOTER 14 Units/kg/hr 16. 2 mL/hr New Bag 08/08/2024 5:49 PM FAGOTER 14 Units/kg/hr 16.2 mL/h r heparin (porcine) 100 Units/mL in NaCl 0.45% 250 mL infusion 0-30 Units/kg/hr 116 kg Dosing weight (0-34.8 mL/hr), intravenous, Continuous, Starting on Mon08/09/24 at 1930, For 3 days 2 hours, 25,000 Units in 250 mL, Intensity type: High, Starting Dose (units/kg/hr): 18, Anti-Xa < 0.1: Adjust Dose (Units/kg/hr) by: 4, Anti-Xa < 0.1: Loading Dose (Units/kg): 80, Anti-Xa < 0.1: Repeat anti-Xa: 6 hours, Anti-Xa 0.1-0.2: Adjust Dose (Units/kg/hr) by: 2, Anti-Xa 0.1-0.2: Loading Dose (Units/kg): 40, Anti-Xa 0.1-0.2: Repeat anti-Xa: 6 hours, Anti-Xa 0.21-0.29: Adjust Dose (Units/kg/hr) by: 2, Anti-Xa 0.21-0.29: Repeat anti-Xa: 6 hours, Anti-Xa > 0.2: Loading Dose (Units/kg): 0, Anti-Xa 0.3-0.7: Adjust Dose (Units/kg/hr) by: 0, Anti-Xa 0.3-0.7: Repeat anti-Xa: 6 hours. If two consecutive therapeutic result, re-check next AM., Anti-Xa 0.71-0.99: Hold Infusion: Stop infusion for 1 hour, Anti-Xa 0.71-0.99: Adjust Dose (Units/kg/hr) by: -2, Anti-Xa 0.71-0.99: Repeat anti-Xa: 6 hours after Heparin resumed, Anti-Xa 1-1.5: Hold Infusion: Stop infusion for 2 hours, Anti-Xa 1-1.5: Adjust Dose (Units/kg/hr) by: -4, Anti-Xa 1-1.5: Repeat anti-Xa: 6 hours after Heparin resumed, Anti-Xa > 1.5: Hold Infusion: Stop infusion until anti-xa < 1.2, Anti-Xa > 1.5: Adjust Dose (Units/kg/hr) by: -4, Anti-Xa > 1.5: Repeat anti-Xa: every 2 hours until anti-Xa less than 1.2 New Bag 08/12/2024 1:09 PM FAGOTER 16 Units/kg/hr 18.6 mL/hr Rate/Dose Verify 08/12/2024 12:31 PM FAGOTER 16 Units/kg/hr 18 .6 mL/hr Rate/Dose Change 08/12/2024 6:02 AM FAGOTER 16 Units/kg/hr 18. 6 mL/hr HYDROmorphone injection 0.2 mg (Dilaudid) 0.2 mg, intravenous, Every 4 hours PRN, severe pain or score 7-10 of 10, For pain unrelieved by oral hydromorphone, Starting on Mon08/09/24 at 1333 Given 08/10/2024 6:43 AM FAGOTER 0.2 mg Given 08/09/2024 9:17 PM FAGOTER 0.2 mg iohexoL 300 mg iodine/mL solution 1-200 mL (Omnipaque) 1-200 mL, intravenous, Once in imaging, contrast, for CT exam, Starting on Mon08/08/24 at 1851, For 1 dose, Dose per Radiant Medication Guidelines Given 08/08/2024 7:02 PM FAGOTER 100 mL iohexoL 350 mg iodine/mL solution (Omnipaque) As needed, Starting on Mon08/09/24 at 1246, Intra-Op Given 08/09/2024 12:46 PM FAGOTER 5 mL iohexoL 350 mg iodine/mL solution 1-200 mL (Omnipaque) 1-200 mL, intravenous, Once in imaging, contrast, for CT exam, Starting on Mon08/08/24 at 0530, For 1 dose, Dose per Radiant Medication Guidelines Given 08/08/2024 5:31 AM FAGOTER 100 mL ipratropium-albuteroL 0.5-2.5 mg/3 mL nebulizer solution 3 mL (DuoNeb) 3 mL, nebulization, Every 6 hours scheduled (RT), First dose on Mon08/08/24 at 0700 Given 08/08/2024 1:24 PM FAGOTER 3 mL Given 08/08/2024 9:06 AM FAGOTER 3 mL ipratropium-albuteroL 0.5-2.5 mg/3 mL nebulizer solution 3 mL (DuoNeb) 3 mL, nebulization, 4 times daily PRN, wheezing, shortness of breath, Starting on Mon08/08/24 at 1730 latanoprost 0.005 % ophthalmic solution 1 drop (Xalatan) 1 drop, both eyes, Daily at bedtime, First dose on Mon08/08/24 at 2000 Given 08/15/2024 8:25 PM FAGOTER 1 drop Given 08/14/2024 8:30 PM FAGOTER 1 drop Given 08/13/2024 8:38 PM FAGOTER 1 drop lidocaine-sodium bicarbonate (buffered) 0.9%-0.84% injection infiltration, As needed, Starting on Mon08/09/24 at 1229, Intra-Op Given 08/09/2024 12:29 PM FAGOTER 7 mL lisinopriL tablet 40 mg 40 mg, oral, Daily, First dose on Mon08/11/24 at 1015 Given 08/16/2024 8:13 AM FAGOTER 40 mg Given 08/15/2024 9:22 AM FAGOTER 40 mg Given 08/14/2024 8:20 AM FAGOTER 40 mg magnesium sulfate in D5W IVPB 1 g 1 g, intravenous, at 100 mL/hr, Administer over 60 Minutes, Once, On Mon08/13/24 at 0630, For 1 dose, Over 1 hours. , Monitor the following for replacement: Magnesium New Bag 08/13/2024 6:18 AM FAGOTER 1 g 100 mL/hr magnesium sulfate in water IVPB 2 g 2 g, intravenous, at 25 mL/hr, Administer over 120 Minutes, Once, On Mon08/12/24 at 1130, For 1 dose, Over 2 hours. , Monitor the following for replacement: Magnesium New Bag 08/12/2024 11:35 AM FAGOTER 2 g 25 mL/hr magnesium sulfate in water IVPB 2 g 2 g, intravenous, at 25 mL/hr, Administer over 120 Minutes, Once, On Mon08/14/24 at 0830, For 1 dose, Over 2 hours. , Monitor the following for replacement: Magnesium New Bag 08/14/2024 8:45 AM FAGOTER 2 g 25 mL/hr melatonin tablet 4.5 mg 4.5 mg (rounded from 5 mg), oral, Bedtime PRN, for sleep, Starting on Jayla 08/08/24 at 0306 Given 08/11/2024 8:28 PM FAGOTER 4.5 mg metoprolol succinate 24 hr tablet 100 mg (Toprol XL) 100 mg, oral, Daily, First dose (after last modification) on Mon08/14/24 at 0900, Do NOT crush or chew. Tablet may be split on score if needed. Given 08/16/2024 8:13 AM FAGOTER 100 mg Given 08/15/2024 9:28 AM FAGOTER 100 mg Given 08/14/2024 8:20 AM FAGOTER 100 mg metoprolol succinate 24 hr tablet 50 mg (Toprol XL) 50 mg, oral, Daily, First dose on Mon08/11/24 at 1015, Do NOT crush or chew. Tablet may be split on score if needed. Given 08/13/2024 8:09 AM FAGOTER 50 mg Given 08/12/2024 9:03 AM FAGOTER 50 mg Given 08/11/2024 10:31 AM FAGOTER 50 mg metoprolol tartrate tablet 50 mg (Lopressor) 50 mg, oral, Once, On Mon08/13/24 at 1530, For 1 dose Given 08/13/2024 3:38 PM FAGOTER 50 mg morphine injection 2 mg 2 mg, intravenous, Once, On Mon08/08/24 at 1530, For 1 dose, Imaging Protocol Orders Given 08/08/2024 3:21 PM FAGOTER 2 mg NaCl 0.9% infusion 100 mL/hr, intravenous, Continuous, Starting on Mon08/08/24 at 0430 New Bag 08/11/2024 1:00 AM FAGOTER 100 mL/hr 100 mL/hr Rate/Dose Verify 08/10/2024 8:00 PM FAGOTER 100 mL/hr 100 mL/ hr New Bag 08/10/2024 3:09 PM FAGOTER 100 mL/hr 100 mL/hr naloxone injection 0.2 mg 0.2 mg, intravenous, As needed, respiratory depression, Starting on Mon08/09/24 at 1334, For RASS Score -4 or less, respiratory rate of less than 8 breaths/min. Notify provider/service and rapid response team (if available at institution). NIFEdipine XL 24 hr tablet 90 mg (Procardia XL) 90 mg, oral, Daily, First dose on Mon08/13/24 at 1445, Swallow whole. Do NOT crush, chew, or split tablet. Given 08/16/2024 8:13 AM FAGOTER 90 mg Given 08/15/2024 9:21 AM FAGOTER 90 mg Given 08/14/2024 8:20 AM FAGOTER 90 mg nystatin 100,000 unit/gram powder 1 Application (Nystop) 1 Application, topical, 2 times daily, First dose on Mon08/12/24 at 2100, Apply to abdomen and groin skin folds Given 08/16/2024 11:18 AM FAGOTER 1 Application Given 08/15/2024 8:25 PM FAGOTER 1 Application Given 08/15/2024 9:23 AM FAGOTER 1 Application ondansetron ODT disintegrating tablet 4 mg (Zofran-ODT) 4 mg, oral, Every 6 hours PRN, nausea, vomiting, Starting on Mon08/08/24 at 0308, When splitting ODT at bedside, handle with gloves and a pill splitter to prevent moisture contact. Given 08/08/2024 4:51 PM FAGOTER [address] tablet 40 mg (Protonix) 40 mg, oral, 2 times daily before morning and evening meals, First dose on Mon08/08/24 at 0700, Swallow whole. Do NOT crush, chew, or split tablet. Given 08/16/2024 5:16 PM FAGOTER 40 mg Given 08/16/2024 6:29 AM FAGOTER 40 mg Given 08/15/2024 4:19 PM FAGOTER 40 mg perflutren lipid microspheres injection (Definity) intravenous, Once in imaging, contrast, Starting on Mon08/08/24 at 0848, For 1 dose, Intraprocedure - Diagnostic, See protocol. Given 08/08/2024 8:48 AM FAGOTER 3 mL piperacillin-tazobactam in dextrose (iso osm) IVPB 3.375 g (Zosyn) 3.375 g, intravenous, at 100 mL/hr, Administer over 0.5 Hours, Once, On Mon08/08/24 at 0445, For 1 dose, Drug Monitoring Program: Pharmacist to adjust medication dosing based on indication and drug clearance factors., Indications: Intra-abdominal infection, community acquiredIndications:Intra-abdomina l infection, community acquired New Bag 08/08/2024 5:55 AM FAGOTER 3.375 g 100 mL/hr piperacillin-tazobactam in dextrose (iso osm) IVPB 3.375 g (Zosyn) 3.375 g, intravenous, at 100 mL/hr, Administer over 0.5 Hours, Every 6 hours scheduled, First dose (after last modification) on Mon08/12/24 at 1200, Drug Monitoring Program: Pharmacist to adjust medication dosing based on indication and drug clearance factors., Indications: Intra-abdominal infection, community acquiredIndications:Intra-abdomina l infection, community acquired New Bag 08/13/2024 5:20 AM FAGOTER 3.375 g 100 mL/hr New Bag 08/12/2024 11:36 PM FAGOTER 3.375 g 100 mL/hr New Bag 08/12/2024 5:09 PM FAGOTER 3.375 g 100 mL/hr piperacillin-tazobactam injection 2.25 g (Zosyn) 2.25 g, intravenous, Every 6 hours scheduled, First dose on Mon08/09/24 at 0830, [place] IV push over 3 minutes. Add 10 mL NS to 2.25 gram vial for a final concentration of 225 mg/mL., Drug Monitoring Program: Pharmacist to adjust medication dosing based on indication and drug clearance factors., Indications: Intra-abdominal infection, community acquiredIndications:Intra-abdominal infection, community acquired Given 08/12/2024 5:25 AM FAGOTER 2.25 g Given 08/11/2024 11:50 PM FAGOTER 2.25 g Given 08/11/2024 8:14 PM FAGOTER 2.25 g polyethylene glycol powder packet 17 g (Miralax) 17 g, oral, Daily PRN, constipation, Starting on Mon08/08/24 at 0349, Ordered sequence of administration: polyethylene glycol, then bisacodyl until BM achieved. Avoid mixing with starch-based thickened liquids. Given 08/16/2024 12:43 PM FAGOTER 17 g potassium chloride ER tablet 40 mEq 40 mEq, oral, Once, On Mon08/13/24 at 0630, For 1 dose, For K<3.3-3.5 mEq/L - give total of 40 mEq Swallow whole. Do NOT crush, chew, or split tablet., Monitor the following for replacement: Potassium, Replace Potassium per: Standard Schedule Given 08/13/2024 6:18 AM FAGOTER 40 mEq potassium phosphate in NaCl 0.9% IVPB 15 mmol 15 mmol, intravenous, at 114 mL/hr, Administer over 2.2 Hours, Every 3 hours, First dose on Mon08/13/24 at 2300, For 2 doses, Peripheral Line: Administrater at 6.8 mmoL phosphate/hr, Monitor the following for replacement: Phosphorus New Bag 08/14/2024 1:26 AM FAGOTER 15 mmol 114 mL/hr New Bag 08/13/2024 10:56 PM FAGOTER 15 mmol 114 mL/hr potassium phosphate in NaCl 0.9% IVPB 15 mmol 15 mmol, intravenous, at 114 mL/hr, Administer over 2.2 Hours, Every 3 hours, First dose on Mon08/14/24 at 1600, For 2 doses, Peripheral Line: Administrater at 6.8 mmoL phosphate/hr, Monitor the following for replacement: Phosphorus New Bag 08/14/2024 7:09 PM FAGOTER 15 mmol 114 mL/hr New Bag 08/14/2024 4:35 PM FAGOTER 15 mmol 114 mL/hr potassium phosphates 30 mmol in NaCl 0.9% IVPB 30 mmol, intravenous, at 116 mL/hr, Administer over 4.4 Hours, Once, On Mon08/11/24 at 0830, For 1 dose, Peripheral Line: Administrater at 6.8 mmoL phosphate/hr New Bag 08/11/2024 10:07 AM FAGOTER 30 mmol 116 mL/hr [id number] 280-160-250 mg per packet 1 packet (Phos-NaK) 1 packet, oral, Every 4 hours while awake, First dose on Mon08/13/24 at 0615, For 4 doses, Mix each packet in 75 mL water or juice then administer ordered dose. 250 mg of phosphate is equivalent to 8 mmol of phosphate., Monitor the following for replacement: Phosphorus Given 08/13/2024 1:41 PM FAGOTER 1 packet Given 08/13/2024 10:27 AM FAGOTER 1 packet Given 08/13/2024 6:18 AM FAGOTER 1 packet [id number] 280-160-250 mg per packet 2 packet (Phos-NaK) 2 packet, oral, Every 4 hours while awake, First dose on Mon08/12/24 at 1130, For 4 doses, Mix each packet in 75 mL water or juice then administer ordered dose. 250 mg of phosphate is equivalent to 8 mmol of phosphate., Monitor the following for replacement: Phosphorus Given 08/12/2024 9:17 PM FAGOTER 2 packets Given 08/12/2024 5:02 PM FAGOTER 2 packets Given 08/12/2024 1:13 PM FAGOTER 2 packets sennosides-docusate sodium 8.6-50 mg per tablet 1 tablet (Senokot-S) 1 tablet, oral, 2 times daily PRN, constipation, Starting on Jayla 08/08/24 at 0318 Given 08/16/2024 12:43 PM FAGOTER 1 tablet sennosides-docusate sodium 8.6-50 mg per tablet 1 tablet (Senokot-S) 1 tablet, oral, 2 times daily, First dose on [facility] 08/08/24 at 0900, Do not give if patient has diarrhea. Given 08/16/2024 8:13 AM FAGOTER 1 tablet Given 08/15/2024 9:22 AM FAGOTER 1 tablet Given 08/13/2024 8:08 AM FAGOTER 1 tablet sodium chloride 0.9 % flush 100 mL 100 mL, intravenous, Once in imaging, line care, for CT exam, Starting on Jayla 08/08/24 at 0530, For 1 dose Given 08/08/2024 5:31 AM FAGOTER 100 mL sodium chloride 0.9 % flush 100 mL 100 mL, intravenous, Once in imaging, line care, needed for CT, Starting on [facility] 08/08/24 at 1851, For 1 dose Given 08/08/2024 7:01 PM FAGOTER 100 mL sodium chloride 0.9 % injection 10 mL 10 mL, intravenous, Once in imaging, line care, Starting on [facility] 08/08/24 at 0530, For 1 dose Given 08/08/2024 5:30 AM FAGOTER 10 mL sodium chloride 0.9 % injection 10 mL 10 mL, intravenous, As needed, line care, Starting on [facility] 08/08/24 at 0848, Prior to and following infusion and between multiple consecutive infusions: sodium chloride 0.9 % injection Given 08/08/2024 8:49 AM FAGOTER 10 mL sodium chloride 0.9 % injection 10 mL 10 mL, intravenous, Once in imaging, line care, for CT exam, Starting on [facility] 08/08/24 at 1851, For 1 dose sodium chloride 0.9 % injection 10 mL 10 mL, intra-catheter, Daily, First dose on [facility] 08/10/24 at 0900, Please flush the cholecystostomy tube with 10 mL saline once a day while inpatient. Given 08/16/2024 11:18 AM FAGOTER 10 mL Given 08/14/2024 8:44 AM FAGOTER 10 mL Given 08/13/2024 8:12 AM FAGOTER 10 mL sodium chloride 0.9 % injection 3 mL 3 mL, intravenous, Every 12 hours scheduled, First dose on [facility] 08/08/24 at 0900, Peripheral Intravenous Catheter and Rapid Infusion Catheter, when no infusion to maintain patency Given 08/16/2024 8: 23 AM FAGOTER 3 mL Given 08/15/2024 8:26 PM FAGOTER 3 mL Given 08/15/2024 9:35 AM FAGOTER 3 mL technetium Tc 99m mebrofenin (Tc-99m Choletec) 6.98 millicurie, intravenous, Once, On Jayla 08/08/24 at 1415, For 1 dose, Imaging Protocol Orders Given 08/08/2024 1:50 PM FAGOTER 6.98 millicuries Left Forearm documented in this encounter Active and Recently Administered Medications Times are shown in FAGOTER. Scheduled Medication Order 08/14/2024 08/15/2024 08/16/2024 acetaminophen tablet 1,000 mg (TylenoL) 1,000 mg, oral, 3 times daily, First dose on Jayla 08/08/24 at 0900 0820 (Given - Provider: Zoë Kapadia - Comment: 03/02 headache.)1445 (Given - Provider: Gloria Claudio R.N.)2030 (Given - Provider: Mary Ortega R.N.) 0920 (Given - Provider: Yesenia Low R.N.)1420 (Given - Provider: Yesenia Low R.N.)2023 (Given - Provider: Mary Ortega R.N.) 0813 (Given - Provider: Meeta Yoon RAmparoNAmparo)1243 (Given - Provider: Karen Oneil RFiliberto) apixaban tablet 10 mg (Eliquis)(Linked Group 1) 10 mg, oral, 2 times daily, First dose on Mon08/12/24 at 2100, For 14 doses 0820 (Given - Provider: Zoë Kapadia)2030 (Given - Provider: Mary Ortega R.N.) 0923 (Given - Provider: Yesenia Low R.N.)202 (Given - Provider: Mary Ortega R.N.) 0813 (Given - Provider: Meeta Yoon R.N.) apixaban tablet 5 mg (Eliquis)(Linked Group 1) 5 mg, oral, 2 times daily, First dose on Mon08/19/[address] tablet 81 mg 81 mg, oral, Daily, First dose on Mon08/08/24 at 0900, Swallow whole. Do NOT crush, chew, or split tablet. 0821 (Given - Provider: Zoë Kapadia) 09 (Given - Provider: Yesenia Low R.N.) 08 (Given - Provider: Meeta Yoon R.N.) atorvastatin tablet 40 mg (Lipitor) 40 mg, oral, Daily at bedtime, First dose on Mon08/08/24 at 0330 2029 (Given - Provider: Mary Ortega R.N.) 2023 (Given - Provider: Mary Ortega R.N.) bacitracin 500 unit/gram ointment 1 Application 1 Application, topical, 2 times daily, First dose on Mon08/08/24 at 0900 0842 (Given - Provider: Gloria Claudio R.N.)2029 (Given - Provider: Mary Ortega R.N.) 09 (Given - Provider: Yesenia Low R.N.)2024 (Given - Provider: Mary Ortega R.N.) 111 (Given - Provider: Karen Oneil R.N.) baclofen tablet 10 mg (LioresaL) 10 mg, oral, 2 times daily, First dose on Mon08/08/24 at 0900 0820 (Given - Provider: Zoë Kapadia)2029 (Given - Provider: Mary Ortega R.N.) 921 (Given - Provider: Yesenia Low R.N.)2023 (Given - Provider: Mary Ortega R.N.) 08 (Given - Provider: Meeta Yoon R.N.) calcium citrate-vitamin D3 315 mg-5 mcg (200 Unit) per tablet 1 tablet (Citracal + D3) 1 tablet, oral, Daily with morning meal, First dose on Mon08/08/24 at 0800, calcium citrate/vitamin D3 (same frequency) was interchanged for calcium citrate/vitamin D 315 mg/250 units 0910 (Given - Provider: Gloria Claudio R.N.) 09 (Given - Provider: Yesenia Low R.N.) 0813 (Given - Provider: Meeta Yoon R.N.) cefTRIAXone injection 2 g (Rocephin) 2 g, intravenous, Daily, First dose on Mon08/13/24 at 1100, If needed, reconstitute vial per package insert instructions. See IVAG for administration guidelines., Drug Monitoring Program: Pharmacist to adjust medication dosing based on indication and drug clearance factors., Indications: Skin and soft tissue infection 0821 (Given - Provider: Zoë Kapadia) 0923 (Given - Provider: Yesenia Low R.N.) 0807 (Given - Provider: Meeta Yoon R.N.) clotrimazole 1 % cream 1 Application (Lotrimin) 1 Application, topical, 2 times daily, First dose on Mon08/08/24 at 0900 0842 (Given - Provider: Gloria Claudio R.N.)2029 (Given - Provider: Mary Ortega R.N.) 09 (Given - Provider: Yesenia Low R.N.)2024 (Given - Provider: Mary Ortega R.N.) 1118 (Given - Provider: Karen Oneil R.N.) latanoprost 0.005 % ophthalmic solution 1 drop (Xalatan) 1 drop, both eyes, Daily at bedtime, First dose on Mon08/08/24 at 2000 2030 (Given - Provider: Mary Ortega R.N.) 2024 (Given - Provider: Mary Ortega R.N.) lisinopriL tablet 40 mg 40 mg, oral, Daily, First dose on Mon08/11/24 at 1015 0820 (Given - Provider: Zoë Kapadia) 0922 (Given - Provider: Yesenia Low R.N.) 0813 (Given - Provider: Meeta Yoon R.N.) magnesium sulfate in water IVPB 2 g (COMPLETED) 2 g, intravenous, at 25 mL/hr, Administer over 120 Minutes, Once, On Mon08/14/24 at 0830, For 1 dose, Over 2 hours. , Monitor the following for replacement: Magnesium 0845 (New Bag - Provider: Gloria Claudio R.N.) metoprolol succinate 24 hr tablet 100 mg (Toprol XL) 100 mg, oral, Daily, First dose (after last modification) on Mon08/14/24 at 0900, Do NOT crush or chew. Tablet may be split on score if needed. 0820 (Given - Provider: Zoë Kapadia) 0928 (Given - Provider: Yesenia Low R.N.) 0813 (Given - Provider: Meeta Yoon R.N.) NIFEdipine XL 24 hr tablet 90 mg (Procardia XL) 90 mg, oral, Daily, First dose on Mon08/13/24 at 1445, Swallow whole. Do NOT crush, chew, or split tablet. 0820 (Given - Provider: Zoë Kapadia) 0921 (Given - Provider: Yesenia Low R.N.) 0813 (Given - Provider: Meeta Yoon R.N.) nystatin 100,000 unit/gram powder 1 Application (Nystop) 1 Application, topical, 2 times daily, First dose on Mon08/12/24 at 2100, Apply to abdomen and groin skin folds 0842 (Given - Provider: Gloria Claudio R.N.)2030 (Given - Provider: Mary Ortega R.N.) 0923 (Given - Provider: Yesenia Low R.N.)2024 (Given - Provider: Mary Ortega R.N.) 1118 (Given - Provider: Karen Oneil R.N.) pantoprazole DR tablet 40 mg (Protonix) 40 mg, oral, 2 times daily before morning and evening meals, First dose on Mon08/08/24 at 0700, Swallow whole. Do NOT crush, chew, or split tablet. 0606 (Given - Provider: Moises Gudino R.N.)1514 (Given - Provider: Gloria Claudio R.N.) 0609 (Given - Provider: Mary Ortega R.N.)1619 (Given - Provider: Karen Oneil R.N.) 0629 (Given - Provider: Mary Ortega R.N.)1716 (Given - Provider: Moises C Terese, R.N.) potassium phosphate in NaCl 0.9% IVPB 15 mmol (COMPLETED) 15 mmol, intravenous, at 114 mL/hr, Administer over 2.2 Hours, Every 3 hours, First dose on Mon08/13/24 at 2300, For 2 doses, Peripheral Line: Administrater at 6.8 mmoL phosphate/hr, Monitor the following for replacement: Phosphorus 0126 (New Bag - Provider: Shayna Emanuel RAmparoN.) potassium phosphate in NaCl 0.9% IVPB 15 mmol (COMPLETED) 15 mmol, intravenous, at 114 mL/hr, Administer over 2.2 Hours, Every 3 hours, First dose on Mon08/14/24 at 1600, For 2 doses, Peripheral Line: Administrater at 6.8 mmoL phosphate/hr, Monitor the following for replacement: Phosphorus 1635 (New Bag - Provider: Elizabeth Collins RFiliberto)1909 (New Bag - Provider: Elizabeth Collins R.N.) sennosides-docusate sodium 8.6-50 mg per tablet 1 tablet (Senokot-S) 1 tablet, oral, 2 times daily, First dose on Mon08/08/24 at 0900, Do not give if patient has diarrhea. 0845 (Not Given - Provider: Gloria Claudio RFiliberto - Reason: Order parameters not met - Comment: Pt having loose stools)2030 (Not Given - Provider: Mary Ortega RFiliberto - Reason: Contraindicated) 09 (Given - Provider: Yesenia Low RAmparoNAmparo)2025 (Not Given - Provider: Mary Ortega RRoderick. - Reason: Patient/family refused) 0813 (Given - Provider: Meeta Yoon R.N.) sodium chloride 0.9 % injection 10 mL 10 mL, intra-catheter, Daily, First dose on Mon08/10/24 at 0900, Please flush the cholecystostomy tube with 10 mL saline once a day while inpatient. 0844 (Given - Provider: Gloria Claudio R.N.) 1014 (Not Given - Provider: Yesenia Low R.N. - Reason: Other) 1118 (Given - Provider: Karen Oneil R.N.) sodium chloride 0.9 % injection 3 mL 3 mL, intravenous, Every 12 hours scheduled, First dose on Mon08/08/24 at 0900, Peripheral Intravenous Catheter and Rapid Infusion Catheter, when no infusion to maintain patency 0852 (Given - Provider: Ange FosterNAmparo)2030 (Given - Provider: Mary Ortega R.N.) 0935 (Given - Provider: Yesenia Low R.N.)2025 (Given - Provider: Mary Ortega R.N.) 0823 (Given - Provider: Meeta Yoon R.N.) PRN Medication Order 08/14/2024 08/15/2024 08/16/2024 bisacodyL suppository 10 mg (Dulcolax) 10 mg, rectal, Daily PRN, constipation, Starting on Mon08/08/24 at 0349, Ordered sequence of administration: polyethylene glycol, then bisacodyl until BM achieved. diclofenac sodium 1 % gel 2 g (Voltaren) 2 g, topical, 4 times daily PRN, pain, Starting on Mon08/08/24 at 0305, Do not exceed 32 g per day, over all affected joints. Use dosing card to measure product. 2 g = 2.25 inches, 4 gm = 4.5 inches. Rinse dosing card after use and save for each administration. 1619 (Given - Provider: Karen Oneil R.N.) 0818 (Given - Provider: Meeta Yoon RAmparoNAmparo) diphenhydrAMINE capsule 25 mg (BenadryL) 25 mg, oral, Bedtime PRN, itching, allergies, Starting on Mon08/14/24 at 2149 2214 (Given - Provider: Mary Ortega RFiliberto) heparin (porcine) 1,000 unit/mL injection 4,600 Units(Linked Group 2) 4,600 Units (rounded from 4,640 Units = 40 Units/kg 116 kg Dosing weight), intravenous, As needed, antiXa level 0.1-0.2, Starting on Mon08/09/24 at 1902, Intensity type: High, Anti-Xa < 0.1: Loading Dose (Units/kg): 80, Anti-Xa 0.1-0.2: Loading Dose (Units/kg): 40, Anti-Xa > 0.2: Loading Dose (Units/kg): 0 heparin (porcine) 1,000 unit/mL injection 9,300 Units(Linked Group 2) 9,300 Units (rounded from 9,280 Units = 80 Units/kg 116 kg Dosing weight), intravenous, As needed, antiXa level less than 0.1, Starting on Mon08/09/24 at 1902, Intensity type: High, Anti-Xa < 0.1: Loading Dose (Units/kg): 80, Anti-Xa 0.1-0.2: Loading Dose (Units/kg): 40, Anti-Xa > 0.2: Loading Dose (Units/kg): 0 HYDROmorphone injection 0.2 mg (Dilaudid) 0.2 mg, intravenous, Every 4 hours PRN, severe pain or score 7-10 of 10, For pain unrelieved by oral hydromorphone, Starting on Mon08/09/24 at 1333 ipratropium-albuteroL 0.5-2.5 mg/3 mL nebulizer solution 3 mL (DuoNeb) 3 mL, nebulization, 4 times daily PRN, wheezing, shortness of breath, Starting on Mon08/08/24 at 1730 melatonin tablet 4.5 mg 4.5 mg (rounded from 5 mg), oral, Bedtime PRN, for sleep, Starting on Mon08/08/24 at 0306 naloxone injection 0.2 mg 0.2 mg, intravenous, As needed, respiratory depression, Starting on Mon08/09/24 at 1334, For RASS Score -4 or less, respiratory rate of less than 8 breaths/min. Notify provider/service and rapid response team (if available at institution). ondansetron ODT disintegrating tablet 4 mg (Zofran-ODT) 4 mg, oral, Every 6 hours PRN, nausea, vomiting, Starting on Mon08/08/24 at 0308, When splitting ODT at bedside, handle with gloves and a pill splitter to prevent moisture contact. polyethylene glycol powder packet 17 g (Miralax) 17 g, oral, Daily PRN, constipation, Starting on Mon08/08/24 at 0349, Ordered sequence of administration: polyethylene glycol, then bisacodyl until BM achieved. Avoid mixing with starch-based thickened liquids. 1243 (Given - Provider: Karen Oneil R.N.) sennosides-docusate sodium 8.6-50 mg per tablet 1 tablet (Senokot-S) 1 tablet, oral, 2 times daily PRN, constipation, Starting on Jayla 08/08/24 at 0318 1243 (Given - Provider: Karen Oneil R.N.) simethicone chewable tablet 80 mg 80 mg, oral, Daily PRN, flatulence, Starting on Jayla 08/08/24 at 0306 sodium chloride 0.9 % injection 10 mL 10 mL, intravenous, As needed, line care, Starting on Jayla 08/08/24 at 0324, Peripheral Intravenous Catheter and Rapid Infusion Catheter, prior to blood sampling, post blood transfusion or post blood sampling sodium chloride 0.9 % injection 10 mL 10 mL, intravenous, As needed, line care, Starting on Jayla 08/08/24 at 0848, Prior to and following infusion and between multiple consecutive infusions: sodium chloride 0.9 % injection sodium chloride 0.9 % injection 10 mL 10 mL, intravenous, Once in imaging, line care, for CT exam, Starting on Jayla 08/08/24 at 1851, For 1 dose sodium chloride 0.9 % injection 3 mL 3 mL, intravenous, As needed, line care, Starting on Jayla 08/08/24 at 0324, Prior to and following infusion and between multiple consecutive infusions: sodium chloride 0.9 % injection Linked Groups Order Group 1: apixaban tablet 10 mg (Eliquis)Jump to med 10 mg, oral, 2 times daily, First dose on Mon08/12/24 at 2100, For 14 doses Followed by apixaban tablet 5 mg (Eliquis)Jump to med 5 mg, oral, 2 times daily, First dose on Mon08/19/24 at 2100 Group 2: heparin (porcine) 1,000 unit/mL injection 4,600 UnitsJump to med 4,600 Units (rounded from 4,640 Units = 40 Units/kg 116 kg Dosing weight), intravenous, As needed, antiXa level 0.1-0.2, Starting on Mon08/09/24 at 1902, Intensity type: High, Anti-Xa < 0.1: Loading Dose (Units/kg): 80, Anti-Xa 0.1-0.2: Loading Dose (Units/kg): 40, Anti-Xa > 0.2: Loading Dose (Units/kg): 0 Or heparin (porcine) 1,000 unit/mL injection 9,300 UnitsJump to med 9,300 Units (rounded from 9,280 Units = 80 Units/kg 116 kg Dosing weight), intravenous, As needed, antiXa level less than 0.1, Starting on Mon08/09/24 at 1902, Intensity type: High, Anti-Xa < 0.1: Loading Dose (Units/kg): 80, Anti-Xa 0.1-0.2: Loading Dose (Units/kg): 40, Anti-Xa > 0.2: Loading Dose (Units/kg): 0 documented in this encounter Additional Health Concerns Assessment Noted Time PHQ-9 Depression Total Score: 10 018 11:00 AM CDT documented as of this encounter Care Teams Earth Mover Relationship Specialty Start Date End Date Jeff Reyse M.D. [address] [place] [phone] PCP - General 03/14/24 documented as of this encounter
--- OUTSIDE RECORDS SUMMARY | 2024-08-21 14:02 | XMS_ITS | Encounter Summary ---
Author Organization [facility] Address [address] [place] [address] Care Team Providers Care Coke Drawer Name Role Phone Jeff Reyes M.D. Primary Care Provider [phone] Encounter Details Date Type Department Care Team (Late st Contact Info) Description 08/14/2024 7:25 PM ARTIST MANNEQUIN COLORING Ancillary Procedure Department of Nursing Social History Tobacco Use Types Packs/Day Years Used Date Smoking Tobacco: Former Cigarettes Q uit: 1977 Passive Smoke Exposure: Never Alcohol Use Standard Drinks/Week Comments Not Currently 1 (1 standard drink = 0.6 oz pur e alcohol) [facility] Utilities Answer Date Recorded In the past 12 months has e [employer], gas, oil, or water [employer] threatened to shut off services in your [...] often do you attend chur ch or sikhism services? Never 10/18/2022 Do you belong to any clubs o r organizations such as caodaism groups, unions, fraternal or athletic groups, or [...] Answer Date Recorded PHQ-2 Score 0 02/07/2024 [facility] - Occupational [...] your living situation today? I have a [facility] place to live 08/08/2024 Education Answer Date Recorded What is the highest level of school you have completed or the highest degree you have received? 12th grade 10/18/2022 Sex and Gender Information Value Date Recorded Sex Assigned at Male 06/26/2018 4:20 PM ARTIST MANNEQUIN COLORING Legal Sex Male 3:33 AM ARTIST MANNEQUIN COLORING Gender Identity Not on file Sexual Orientation Not on file documented as of this encounter Plan of Treatment Upcoming Encounters Date Type Department Care Team (Latest Contact Info) Description 09/04/2024 10:45 AM ARTIST MANNEQUIN COLORING Comprehensive Visit Department of General Surgery in [place], [place] [address] [place] [phone] Roland Benson D.O. [address] [place] [phone] Discharge Disposition: Home or Self Care documented as of this encounter Procedures Procedure Name Priority Date/Time Associated Diagnosis Comments NURSING IMAGE EXAM Routine 08/14/2024 7: 20 PM ARTIST MANNEQUIN COLORING documented in this encounter Results * Foot, Left-Nursing Image Exam (08/14/2024 7:20 PM ARTIST MANNEQUIN COLORING) 08/14/2024 7:17 PM ARTIST MANNEQUIN COLORING Narrative IIMS - 08/14/2024 7:20 PM ARTIST MANNEQUIN COLORING This order has been created and auto-finalized [...] documented as of this encounter Care Teams Coke Drawer Relationship Specialty Start Date End Date Jeff Reyes M.D. [address] [place] [phone] PCP - General 03/14/24 documented as of this encounter
--- OUTSIDE RECORDS SUMMARY | 2024-08-21 14:02 | XMS_ITS | Encounter Summary ---
Author Organization [facility] Address [address] [place] [address] Care Team Providers Care Whip Operator Name Role Phone Jeff Reyes M.D. Primary Care Provider [phone] Encounter Details Date Type Department Care Team (Late st Contact Info) Description 08/14/2024 7:20 PM FRONT DESK REPRESENTATIVE Ancillary Procedure Department of Nursing Social History Tobacco Use Types Packs/Day Years Used Date Smoking Tobacco: Former Cigarettes Q uit: 1977 Passive Smoke Exposure: Never Alcohol Use Standard Drinks/Week Comments Not Currently 1 (1 standard drink = 0.6 oz pur e alcohol) [facility] Utilities Answer Date Recorded In the past 12 months has e [employer], gas, oil, or water [employer] threatened to shut off services in your [...] often do you attend chur ch or voodoo services? Never 10/18/2022 Do you belong to any clubs o r organizations such as bahai groups, unions, fraternal or athletic groups, or [...] Answer Date Recorded PHQ-2 Score 0 02/07/2024 [facility] - [...] your living situation today? I have a [facility] place to live 08/08/2024 Education Answer Date Recorded What is the highest level of school you have completed or the highest degree you have received? 12th grade 10/18/2022 Sex and Gender Information Value Date Recorded Sex Assigned at Male 06/26/2018 4:20 PM FRONT DESK REPRESENTATIVE Legal Sex Male 3:33 AM FRONT DESK REPRESENTATIVE Gender Identity Not on file Sexual Orientation Not on file documented as of this encounter Plan of Treatment Upcoming Encounters Date Type Department Care Team (Latest Contact Info) Description 09/04/2024 10:45 AM FRONT DESK REPRESENTATIVE Comprehensive Visit Department of General Surgery in [place], [place] [address] [place] [phone] Roland Benson D.O. [address] [place] [address] Discharge Disposition: Home or Self Care documented as of this encounter Procedures Procedure Name Priority Date/Time Associated Diagnosis Comments NURSING IMAGE EXAM Routine 08/14/2024 7: 20 PM FRONT DESK REPRESENTATIVE documented in this encounter Results * Leg, left-Nursing Image Exam (08/14/2024 7:20 PM FRONT DESK REPRESENTATIVE) 08/14/2024 7:17 PM FRONT DESK REPRESENTATIVE Narrative IIMS - 08/14/2024 7:20 PM FRONT DESK REPRESENTATIVE This order has been created and auto-finalized [...] documented as of this encounter Care Teams Whip Operator Relationship Specialty Start Date End Date eJff Reyes M.D. [address] [place] [phone] PCP - General 03/14/24 documented as of this encounter
--- OUTSIDE RECORDS SUMMARY | 2024-08-21 14:02 | XMS_ITS | Encounter Summary ---
Author Organization [facility] Address [address] [place] [address] Care Team Providers Care Glass Block Installer Name Role Phone Jeff Reyes M.D. Primary Care Provider [phone] Encounter Details Date Type Department Care Team (Late st Contact Info) Description 08/08/2024 1:40 PM ABSENCE MANAGEMENT CONSULTANT Ancillary Procedure Department of Internal Medicine Social History Tobacco Use Types Packs/Day Years Used Date Smoking Tobacco: Former Cigarettes Q uit: 1977 Passive Smoke Exposure: Never Alcohol Use Standard Drinks/Week Comments Not Currently 1 (1 standard drink = 0.6 oz pur e alcohol) [facility] Utilities Answer Date Recorded In the past 12 months has e [employer], gas, oil, or water [employer] threatened to shut off services in your [...] often do you attend chur ch or gnosticism services? Never 10/18/2022 Do you belong to any clubs o r organizations such as buddhism groups, unions, fraternal or athletic groups, or [...] Date Recorded PHQ-2 Score 0 02/07/2024 [facility] - Occupational [...] your living situation today? I have a [facility] place to live 08/08/2024 Education Answer Date Recorded What is the highest level of school you have completed or the highest degree you have received? 12th grade 10/18/2022 Sex and Gender Information Value Date Recorded Sex Assigned at Male 06/26/2018 4:20 PM ABSENCE MANAGEMENT CONSULTANT Legal Sex Male 3:33 AM ABSENCE MANAGEMENT CONSULTANT Gender Identity Not on file Sexual Orientation Not on file documented as of this encounter Functional Status * Intimate Partner Violence Question Answer Date of Assessment Author Within the last year, have y ou been humiliated or emotionally abused in other ways by your partner or ex-partner? No 08/08/2024 1:00 AM ABSENCE MANAGEMENT CONSULTANT Mariela Stacy ra, R.N. Within the last year, have y ou been afraid of your partner or ex-partner? No 08/08/2024 1:00 AM ABSENCE MANAGEMENT CONSULTANT Kiesha Stacy, R.N. Within the last year, have y ou been raped or forced to have any kind of sexual activity by your partner or ex-partner? No 08/08/2024 1:00 AM Kiesha Parekh, R.N. Within the last year, have y ou been kicked, hit, slapped, or otherwise physically hurt by your partner or ex-partner? No 08/08/2024 1:00 AM Kiesha Parekh, RAmparoN. documented as of this encounter Plan of Treatment Upcoming Encounters Date Type Department Care Team (Latest Contact Info) Description 09/04/2024 10:45 AM ABSENCE MANAGEMENT CONSULTANT Comprehensive Visit Department of General Surgery in [place], [place] [address] [place] [address] Roland Benson D.O. [address] [place] [phone] Discharge Disposition: Home or Self Care documented as of this encounter Procedures Procedure Name Priority Date/Time Associated Diagnosis Comments INTERNAL MEDICINE IMAGE EXAM Routine 08/08/2024 1:40 PM ABSENCE MANAGEMENT CONSULTANT documented in this encounter Results * Buttocks 527a-Internal Medicine Image Exam (08/08/2024 1:40 PM ABSENCE MANAGEMENT CONSULTANT) 08/08/2024 1:36 PM ABSENCE MANAGEMENT CONSULTANT Narrative IIMS - 08/08/2024 1:40 PM ABSENCE MANAGEMENT CONSULTANT This order has been created and auto-finalized [...] Noted Time PHQ-9 Depression Total Score: 10 05/26/2 018 11:00 AM CDT documented as of this encounter Care Teams Glass Block Installer Relationship Specialty Start Date End Date Jeff Reyes M.D. [address] [place] [phone] PCP - General 03/14/24 documented as of this encounter
--- OUTSIDE RECORDS SUMMARY | 2024-08-21 14:02 | XMS_ITS | Encounter Summary ---
Author Organization [facility] Address [address] [place] [address] Care Team Providers Care Career Development Engineer Name Role Phone Jeff Reyes M.D. Primary Care Provider [phone] Encounter Details Date Type Department Care Team (Latest Contact Info) Description 08/07/2024 Intake [facility] Social History Tobacco Use Types Packs/Day Years Used Date Smoking Tobacco: Former Cigarettes Q uit: 1977 Passive Smoke Exposure: Never Alcohol Use Standard Drinks/Week Comments Not Currently 1 (1 standard drink = 0.6 oz pur e alcohol) [facility] Utilities Answer Date Recorded In the past 12 months has e electric, gas, oil, or water [employer] threatened to shut off services in your [...] often do you attend chur ch or sikh services? Never 10/18/2022 Do you belong to any clubs o r organizations such as zoroastrian groups, unions, fraternal or athletic groups, or [...] Answer Date Recorded PHQ-2 Score 0 02/07/2024 [facility] Occup[facility] ional Health - Occupational [...] your living situation today? I have a [facility] place to live 08/08/2024 Education Answer Date Recorded What is the highest level of school you have completed or the highest degree you have received? 12th grade 10/18/2022 Sex and Gender Information Value Date Recorded Sex Assigned at Male 06/26/2018 4:20 PM ENTRY LEVEL CHEMIST Legal Sex Male 3:33 AM ENTRY LEVEL CHEMIST Gender Identity Not on file Sexual Orientation Not on file documented as of this encounter Functional Status * Intimate Partner Violence Question Answer Date of Assessment Author Within the last year, have y ou been humiliated or emotionally abused in other ways by your partner or ex-partner? No 08/08/2024 1:00 AM ENTRY LEVEL CHEMIST Mariela Stacy ra, R.N. Within the last year, have y ou been afraid of your partner or ex-partner? No 08/08/2024 1:00 AM ENTRY LEVEL CHEMIST Kiesha Stacy, R.N. Within the last year, have y ou been raped or forced to have any kind of sexual activity by your partner or ex-partner? No 08/08/2024 1:00 AM Kiesha Parekh, R.N. Within the last year, have y ou been kicked, hit, slapped, or otherwise physically hurt by your partner or ex-partner? No 08/08/2024 1:00 AM Kiesha Parekh, R.N. documented as of this encounter Plan of Treatment Upcoming Encounters Date Type Department Care Team (Latest Contact Info) Description 09/04/2024 10:45 AM ENTRY LEVEL CHEMIST Comprehensive Visit Department of General Surgery in [place], [place] [address] [place] [address] Roland Benosn D.O. [address] [place] [phone] Discharge Disposition: Home or Self Care documented as of this encounter Visit Diagnoses Not on filedocumented in this encounter Additional Health Concerns Assessment Noted Time PHQ-9 Depression Total Score: 10 018 11:00 AM CDT documented as of this encounter Care Teams Career Development Engineer Relationship Specialty Start Date End Date Jeff Reyes M.D. [address] [place] [phone] PCP - General 03/14/24 documented as of this encounter
--- OUTSIDE RECORDS SUMMARY | 2024-08-21 14:02 | XMS_ITS | Encounter Summary ---
Author Organization [facility] Address [address] [place] [address] Care Team Providers Care [employer]end Et[employer] Developer Name Role Phone Jeff Reyes M.D. Primary Care Provider [phone] Encounter Details Date Type Department Care Team (Late st Contact Info) Description 08/10/2024 2:30 PM BAG FILLER Ancillary Procedure Department of Nursing Social History Tobacco Use Types Packs/Day Years Used Date Smoking Tobacco: Former Cigarettes Q uit: 1977 Passive Smoke Exposure: Never Alcohol Use Standard Drinks/Week Comments Not Currently 1 (1 standard drink = 0.6 oz pur e alcohol) [facility] Utilities Answer Date Recorded In the past 12 months has e [employer] gas, oil, or water [employer] threatened to shut off services in your [...] often do you attend chur ch or hoahaoism services? Never 10/18/2022 Do you belong to any clubs o r organizations such as muslim groups, unions, fraternal or athletic groups, or [...] Date Recorded PHQ-2 Score 0 02/07/2024 [facility] - Occupational Stress [...] your living situation today? I have a [facility] place to live 08/08/2024 Education Answer Date Recorded What is the highest level of school you have completed or the highest degree you have received? 12th grade 10/18/2022 Sex and Gender Information Value Date Recorded Sex Assigned at Male 06/26/2018 4:20 PM BAG FILLER Legal Sex Male 3:33 AM BAG FILLER Gender Identity Not on file Sexual Orientation Not on file documented as of this encounter Plan of Treatment Upcoming Encounters Date Type Department Care Team (Latest Contact Info) Description 09/04/2024 10:45 AM BAG FILLER Comprehensive Visit Department of General Surgery in [place], [place] [address] [place] [id number] Roland Benson D.O. [address] [place] [phone] Discharge Disposition: Home or Self Care documented as of this encounter Procedures Procedure Name Priority Date/Time Associated Diagnosis Comments NURSING IMAGE EXAM Routine 08/10/2024 2: 29 PM BAG FILLER documented in this encounter Results * Buttock, Right-Nursing Image Exam (08/10/2024 2:29 PM BAG FILLER) 08/10/2024 2:26 PM BAG FILLER Narrative [facility] - 08/10/2024 2:29 PM BAG FILLER This order has been created and auto-finalized [...] documented as of this encounter Care Teams Talend Et[employer] Developer Relationship Specialty Start Date End Date Jeff Reyes M.D. [address] [place] [phone] PCP - General 03/14/24 documented as of this encounter
--- OUTSIDE RECORDS SUMMARY | 2024-08-21 14:03 | XMS_ITS | Clinical Summary ---
Author Organization [facility] Address [address] [place] [address] Care Team Providers Care Ice House Supervisor Name Role Phone Jeff Reyes M.D. Primary Care Provider Source Comments Patient records contain information from all sites at [facility]. For routine questions regarding patient records, call [phone] during business hours, M-F 8:00 AM - 5:00 PM Central Time. Record requests for emergency care only can be directed to [phone] at any time.[facility] Allergies Active Allergy Reactions Criticality Noted Date Comments Haemophilus Influenzae Other (see comments) High Vancomycin Vancomycin Infusion Reaction Medium 05/26/2018 Red Man Syndrome Medications * This document contains information received from the source organization and may not represent a complete record from that organization. sennosides-do cusate sodium (SENOKOT-S) 8.6-50 mg per tabletIndicat ions:Neurogen ic Bowel Take 1 tablet by mouth 2 (two) times a day as needed for constipation. 07/04/20 18 Active latanoprost (XALATAN) 0.005 % ophthalmic solution Administer 1 drop into both eyes daily. 09/19/19 23 Active aspirin [address] tablet Take 1 tablet (81 mg total) by mouth daily. 60 tablet 11/14/19 Active atorvastatin (LIPITOR) 40 mg tablet Take 1 tablet (40 mg total) by mouth at bedtime. 30 tablet 11/14/19 23 Active metoprolol succinate (TOPROL-XL) 100 mg 24 hr tabletIndicat ions:Hyperten will Essential Primary Take 1 tablet (100 mg total) by mouth daily. Do not crush or chew. 90 tablet 11/14/19 23 Active pantoprazole (PROTONIX) 40 mg EC tablet Take 1 tablet (40 mg total) by mouth 2 (two) times a day before breakfast and dinner. 180 tablet 3 11/14/19 23 Active baclofen (LIORESAL) 10 mg tabletIndicat ions:Multiple Sclerosis (HCC) Take 1 tablet (10 mg total) by mouth 2 (two) times a day. 60 tablet 12/09/19 23 Active lisinopriL (PRINIVIL,ZES TRIL) 40 mg tabletIndicat ions:Hyperten will Essential Primary Take 1 tablet (40 mg total) by mouth daily. 90 tablet 12/09/19 23 Active NIFEdipine XL (PROCARDIA XL) 90 mg 24 hr tablet Take 1 tablet (90 mg total) by mouth daily. 90 tablet 12/10/19 23 Active calcium carbonate (TUMS) 500 mg (200 mg calcium) chewable tablet Chew 2 tablets (400 mg of calcium total) 2 (two) times a day. 12/23/19 23 Active furosemide (LASIX) 20 mg tablet Take 1 tablet (20 mg total) by mouth daily. 30 tablet 11 01/27/20 23 Active polyethylene glycol (MIRALAX) 17 gram powder packet Take 1 packet (17 g total) by mouth daily as needed for constipation. Dissolve each 17 g dose in 240 mLs (8 ounces) of beverage. 30 each 1 01/26/20 23 Active ondansetron (ZOFRAN) 4 mg tablet Take 4 mg by mouth every 6 (six) hours as needed for nausea or vomiting. 06/23/20 23 Active bacitracin 500 unit/gram ointment Apply 1 Application topically 2 (two) times a day. 08/10/19 24 Active melatonin 5 mg tablet Take 1 tablet (5 mg total) by mouth at bedtime as needed (for sleep). 30 tablet 11 02/09/20 24 Active AntifungaL, clotrimazole, 1 % cream Apply 1 Application topically 2 (two) times a day. 05/14/20 24 Active furosemide (Lasix) 40 mg tablet Take 40 mg by mouth daily. Active apixaban (Eliquis) 5 mg tablet Take 2 tablets (10 mg total) by mouth 2 (two) times a day for 3 days, THEN 1 tablet (5 mg total) 2 (two) times a day. 192 tablet 08/16/19 25 Active potassium chloride 10 mEq ER capsule Take 1 capsule (10 mEq total) by mouth 2 (two) times a day with meals. 08/16/19 Active acetaminophen (TylenoL) 500 mg tablet Take 2 tablets (1,000 mg total) by mouth 3 (three) times a day. 08/16/19 Active diclofenac sodium (Voltaren) 1 % gelIndication s:Multiple Sclerosis (HCC) Apply 2 g topically 2 (two) times a day as needed (pain). 08/16/19 Active GAS RELIEF 80 mg chewable tablet Chew 1 tablet (80 mg total) 4 (four) times a day as needed for flatulence. 08/16/19 Active cholecalcifer ol 25 mcg (1,000 unit) tablet Take 1 tablet (25 mcg total) by mouth daily. 08/16/19 Active multivitamin- fxpk-NA-Yu-mi nerals (THERAPEUTIC- M) 9 mg iron-400 mcg per tablet Take 1 tablet by mouth daily. 30 tablet 3 07/04/20 Discontinued calcium citrate-vitam in D3 (Citracal + D Maximum) 315 mg-6.25 mcg (250 Unit) per tablet Take 1 tablet by mouth daily with breakfast. Discontinued diclofenac sodium (VOLTAREN) 1 % gelIndication s:Multiple Sclerosis (HCC) Apply 2 g topically 4 (four) times a day as needed (pain). 100 g 11/14/19 025 Discontinued lidocaine (LIDODERM) 5 % Place 1 patch on the skin daily. Apply to R shoulder. 11/15/19 025 Discontinued potassium chloride (KLOR-CON SPRINKLE) 10 mEq ER sprinkle capsule Take 2 capsules (20 mEq total) by mouth daily. 12/09/19 025 Discontinued nystatin (NYSTOP) 100,000 unit/gram powder Apply 1 Application topically 2 (two) times a day. Apply to Jose Luis groin 30 g 12/09/19 23 025 Discontinued acetaminophen (TYLENOL) 500 mg tablet Take 2 tablets (1,000 mg total) by mouth 4 (four) times a day. 12/23/19 025 Discontinued lidocaine (LIDODERM) 5 % Place 1 patch on the skin daily. Apply to right hip 30 patch 1 01/27/20 025 Discontinued sulfamethoxaz ole-trimethop rim (BACTRIM) 400-80 mg per tablet 08/09/19 025 Discontinued albuterol 90 mcg/actuation inhaler 05/21/20 025 Discontinued(Er ror) GAS RELIEF 80 mg chewable tablet 02/02/20 025 Discontinued magnesium citrate solution 01/09/20 025 Discontinued lidocaine HCL (Glydo) 2 % topical jelly 12/04/19 025 Discontinued cholecalcifer ol 25 mcg (1,000 unit) tablet 02/02/20 025 Discontinued apixaban (Eliquis) 5 mg tablet Take 2 tablets (10 mg total) by mouth 2 (two) times a day for 7 days, THEN 1 tablet (5 mg total) 2 (two) times a day for 23 days. 74 tablet 08/08/19 025 Discontinued(St op Taking at Discharge) cephalexin (Keflex) 500 mg capsuleIndica tions:Embolus Pulmonary (HCC) Take 1 capsule (500 mg total) by mouth every 6 (six) hours for 4 days. 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 Given history of cellulitis with sepsis, needs close monitoring of any foot wounds. Currently de-roofed bullae on the left toe has no sign of infection, normal serosanguinous drainage present and he is monitoring closely and will let us know if any symptoms of infection start, for which we would start an antibiotic. Plan to follow-up in 1 week to ensure appropriate wound healing; if not closing up as expected, patient would benefit from wound cares until fully closes to avoid infection. Paraparesis Spastic 08/02/2018 Paraplegia 08/02/2018 Overview (08/22/2023): Last Assessment & Plan: Continue baclofen which has been helpful. 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 Overview (10/19/2022): History of MD Assessment & Plan (07/04/2018 2:57 PM BUSINESS ATTORNEY): -Continue atorvastatin 40 mg daily -Continue metoprolol succinate 100 mg daily -Continue nifedipine 90 mg extended release daily -Continue lisinopril 40 mg daily -Continue Lasix 40 mg daily -Continue coenzyme Q10 200 mg daily Hypoalbuminemia 05/28/2018 Hypokalemia 05/26/2018 Neurogenic Bowel 05/26/2018 Hypertension Essential Primary 05/28/2015 Overview (10/19/2022): Hypertension (HTN) Essential Benign Last Assessment & Plan: Patient is back on lisinopril, nifedipine and metoprolol with good control on this regimen. Neuromuscular Dysfunction Of Bladder Unspecified 11/18/2003 Overview (10/19/2022): Last Assessment & Plan: Self-caths and has history of frequent UTI. Has a standing Bactrim prescription which he takes when urine becomes cloudy/malodorous. Urine symptoms started yesterday again with cloudy/malodorous urine, he would like a refill of bactrim. Discussed importance of taking complete courses to avoid antibiotic resistance from discontinuing early. Will plan for a 7 day course to also treat his RLE cellulitis. Assessment & Plan (07/04/2018 2:56 PM BUSINESS ATTORNEY): Continue I&O catheterization as needed Multiple Sclerosis 06/03/2003 Assessment & Plan (07/04/2018 3:32 PM BUSINESS ATTORNEY): -Continue to follow with Neurology for further recommendations Resolved Problems Problem Noted Date Diagnosed Date Resolved Date Sprain Ankle Initial Right 11/08/2022 0 11/09/2022 Obesity Unspecified 03/21/2019 11/10/19 23 Urinary Tract Infection Site Not Specified 07/04/2018 11/09/2022 Overview (07/04/2018): Completed ciprofloxacin 500 mg b.i.d. for an antibiotic course of 14 days (last dose on 06/08/2018) Assessment & Plan (07/04/2018 3:31 PM BUSINESS ATTORNEY): -Patient denies any urinary symptoms today on exam. -Continue care cranberry 450 mg daily Failure Renal Acute (Acute Kidney Injury) 05/27/2018 10/19/2022 Non-ST Elevation Myocardial Infarction 05/26/2018 10/23/2019 Assessment & Plan (07/04/2018 10:14 AM BUSINESS ATTORNEY): 1. Continue aspirin 81 mg daily 2. Continue atorvastatin 40 mg daily 3. Continue furosemide 40 mg daily 4. Continue lisinopril 40 mg daily 5. Increase metoprolol succinate to 100 mg daily due to benefit in CAD 6. Continue nifedipine 90 mg daily 7. Discontinue hydralazine 10 mg t.i.d. due to borderline hypotension and increase in metoprolol 8. Discontinue fish oil, as unclear evidence for benefit and acceptable lipid panel (LDL 65 on 05/26/18) Acidosis Lactic 05/26/2018 10/23/2019 Pressure Injury (Ulcer) Of R ight Buttock Stage 3 05/26/2018 10/20/2022 Sepsis 05/26/2018 06/29/2018 Weakness General 05/25/2018 10/23/2019 Pressure Injury (Ulcer) Of Right Heel Stage 4 03/24/20 17 10/20/2022 Pressure Injury (Ulcer) Of S acral Region Unspecified Stage 03/24/2017 10/20/2022 Ulcer Foot 12/26/2016 10/19/2022 Encounters Date Type Department Care Team Description 08/20/2024 Clinical Communication Department of Family [facility], in [place], [place] [address] [place] [address] [place] [address] Asia Bartholomew R.N. Post Hospital Follow-up 08/16/2024 Documentation [facility] [address] [place] [address] Yasmani Shea M.D. 08/14/2024 7:35 PM BUSINESS ATTORNEY Ancillary Procedure Department of Nursing 08/14/2024 7:30 PM BUSINESS ATTORNEY Ancillary Procedure Department of Nursing 08/14/2024 7:25 PM BUSINESS ATTORNEY Ancillary Procedure Department of Nursing 08/14/2024 7:20 PM BUSINESS ATTORNEY Ancillary Procedure Department of Nursing 08/10/2024 2:30 PM BUSINESS ATTORNEY Ancillary Procedure Department of Nursing 08/08/2024 1:40 PM BUSINESS ATTORNEY Ancillary Procedure Department of Internal Medicine 08/08/2024 12:41 AM BUSINESS ATTORNEY - 08/16/2024 5:59 PM BUSINESS ATTORNEY Hospital Encounter [facility], Fourth Floor [address] [place] [address] David Perkins M.B.BJosep Smith Hariprasad R, M.D., Ph.D. Yasmani Shea M.D. Cholecystitis (Primary Dx); Embolus Pulmonary (HCC); Paraplegia (HCC); Multiple Sclerosis (HCC) Discharge Disposition: Home or Self Care 08/07/2024 Intake [facility] 05/28/2024 Orders Only [facility] Jeff Sullivan M.D. Monitoring For Therapeutic Drug Therapy from Last 3 Months Immunizations Immunization Administration Dates Next Due HZV (ZOSTAVAX) 08/21/2009 Influenza TIV (IM) 05/08/2003,05/23/2002 Influenza high dose QV(65 years or older) (PF) 1 Influenza, Seasonal, Injectable 05/08/2003,05/23 PCV13 04/21/2015 PPSV23 03/21/2019,08/03/2011 RZV (SHINGRIX) 03/09/2018,01/04/2018 SARS-COV-2 (COVID-19) - PFIZ ER BIVALENT TS(Discontinued)(12 YEARS OR OLDER) 05/17/2022 Td (Adult), adsorbed 08/16/1999 Tdap 04/08/2019,08/21/2009 Family History Medical History Relation Name Comments Cancer Father father Coronary artery disease Father father Glaucoma Father father Hyperlipidemia Father father Hypertension Father father Sleep apnea Father father Relation Name Status Comments Father father Mother Social History Tobacco Use Types Packs/Day Years Used Date Smoking Tobacco: Former Cigarettes Q uit: 1977 Passive Smoke Exposure: Never Tobacco Cessation:Counseling Given: Not Answered Alcohol Use Standard Drinks/Week Comments Not Currently 1 (1 standard drink = 0.6 oz pur e alcohol) [facility] [employer] Answer Date Recorded In the past 12 months has [facility] [employer], gas, oil, or water [employer] threatened to shut off services in your [...] How often do you attend chur or zoroastrian services? Never 10/18/2022 Do you belong to any clubs o r organizations such as sikh groups, unions, fraternal or athletic groups, or [...] Answer Date Recorded PHQ-2 Score 0 02/07/2024 [facility] - [...] your living situation today? I have a [facility] place to live 08/08/2024 Education Answer Date Recorded What is the highest level of school you have completed or the highest degree you have received? 12th grade 10/18/2022 Sex and Gender Information Value Date Recorded Sex Assigned at Male 06/26/2018 4:20 PM BUSINESS ATTORNEY Legal Sex Male 3:33 AM BUSINESS ATTORNEY Gender Identity Not on file Sexual Orientation Not on file Last Filed Vital Signs Vital Sign Reading Time Taken Comments Blood Pressure 163/79 08/16/2024 2:10 PM BUSINESS ATTORNEY Pulse 74 08/16/2024 2:10 PM BUSINESS ATTORNEY Temperature 36.4 C (97.5 F) 08/16/2024 2:10 PM BUSINESS ATTORNEY Respiratory Rate 22 08/16/2024 2:10 PM BUSINESS ATTORNEY Oxygen Saturation 95% 08/16/2024 2:34 PM BUSINESS ATTORNEY Inhaled Oxygen Concentration - - Weight 110 kg (241 lb 8 oz) 08/16/2024 6:[address] Height 185.4 cm (6' 1) 08/08/2024 12:41 AM BUSINESS ATTORNEY Body Mass Index 31.86 08/08/2024 12:41 AM BUSINESS ATTORNEY Plan of Treatment Upcoming Encounters Date Type Department Care Team (Latest Contact Info) Description 09/04/2024 10:45 AM BUSINESS ATTORNEY Comprehensive Visit Department of General Surgery in [place], [place] [address] [place] [address] Roland Benson D.O. [address] [place] [address] Discharge Disposition: Home or Self Care Health Maintenance Due Date Last Done Comments CT Colonography 1950 Cologuard 1950 Colonoscopy 1950 Colorectal Cancer Screening 1950 FIT 1950 Hepatitis C Screening 1950 Hepatitis A Vaccines (1 of 2 - Risk 2-dose series) 1969 Hepatitis B Vaccines (1 of 3 - Risk 3-dose series) 2010 Visit: Chronic Disease, age 18+ 10/20/2023 10/19/2022 Depression Screening (Annual PHQ-2) 07/24/2024 COVID-19 Vaccine ( season) 2024 05/17/2024, 11/21/2023, 05/16/2023, Additional history exists Office Visit for Blood Pressure Check / Re-check 02/06/2025 02/07/2024 Visit: Medicare Annual Wellness 02/07/2025 02/07/2024 Creatinine Level (Kidney Function Test) 08/16/2025 08/16/2024, 08/15/2024, 08/14/2024, Additional history exists Potassium Level 08/16/2025 08/16/2024, 07/25, 08/14/2024, Additional history exists Sodium Level 08/16/2025 08/16/2024, 07/25, 08/14/2024, Additional history exists Lipid (Cholesterol) Screening 10/25/2026 10/25/2021, 04/06/2020, 05/07/2019, Additional history exists Fasting Glucose for Diabetes Screening 08/16/2027 08/16/2024, 08/15/2024, 08/14/2024, Additional history exists DTaP,Tdap,and Td Vaccines (3 - Td or Tdap) 04/08/2029 04/08/2019, 08/21/2009, 08/16/1999 Zoster Vaccines Completed 03/09/2018, 12/22, 08/21/2009 Pneumococcal vaccine (50+ years) Completed 03/21/2019, 04/21/2015, 08/03/2011 Influenza Vaccine Completed 05/17/2024, , 05/08/2003, Additional history exists RSV vaccine - (32-36 weeks) or 60+ years Completed 05/17/2024 Abdominal Aortic Aneurysm (AAA) Screen Completed 08/08/2024, 12/14/2022, 08/07/2021, Additional history exists Fall Risk Screen (Annual) Completed 08/08/2024 IPV Vaccines Aged Out No longer eligi ble based on patient's age to complete this topic Medical Devices Implanted Type Area Supervisor Slashing Department Device Identifier Shelf Expiration Date Model / Serial / Lot Scrw St 24pthrd 8.0x105 - [id number] Implanted:Qty : 1 on 12/15/2022 by Jana Don M.D. at [facility] Hardware e.g. pins/screws/ rods Right: [employer] [id number] / / Scrw Vthrd Fast 7.0x105 - [id number] Implanted:Qty : 2 on 12/15/2022 by Jana Don M.D. at [facility] [place] Hardware e.g. pins/screws/ rods Right: [employer] [id number] / / Washr Flt 1.5x13 - [id number] Implanted:Qty : 4 on 12/15/2022 by Jana Don M.D. at [facility] [place] Hardware e.g. pins/screws/ rods Right: [employer] [id number] / / Procedures Procedure Name Priority Date/Time Associated Diagnosis Comments MANUAL DIFFERENTIAL, B Routine 5:44 AM BUSINESS ATTORNEY MORPHOLOGY EVALUATION Routine 08/16/2024 5:44 AM BUSINESS ATTORNEY BASIC METABOLIC PANEL, S/P Routine 08/16/2024 5:44 AM BUSINESS ATTORNEY CBC WITH DIFFERENTIAL, B Routine 08/16/2024 5:44 AM BUSINESS ATTORNEY ADULT OXYGEN THERAPY Routine 08/15/2024 8:00 AM BUSINESS ATTORNEY PULSE OXIMETRY, CONTINUOUS Routine 08/15/2024 8:00 AM BUSINESS ATTORNEY MORPHOLOGY EVALUATION Routine 08/15/2024 5:32 AM BUSINESS ATTORNEY MANUAL DIFFERENTIAL, B Routine 5:32 AM BUSINESS ATTORNEY PHOSPHORUS (INORGANIC), S Routine 08/15/2024 5:32 AM BUSINESS ATTORNEY MAGNESIUM, S Routine 08/15/2024 5:32 AM BUSINESS ATTORNEY HEPATIC FUNCTION PANEL, S Routine 08/15/2024 5:32 AM BUSINESS ATTORNEY CBC WITH DIFFERENTIAL, B Routine 08/15/2024 5:32 AM BUSINESS ATTORNEY BASIC METABOLIC PANEL, S/P Routine 08/15/2024 5:32 AM BUSINESS ATTORNEY ADULT OXYGEN THERAPY Routine 08/14/2024 8:01 PM BUSINESS ATTORNEY PULSE OXIMETRY, CONTINUOUS Routine 08/14/2024 8:01 PM BUSINESS ATTORNEY NURSING IMAGE EXAM Routine 08/14/2024 7: 20 PM BUSINESS ATTORNEY NURSING IMAGE EXAM Routine 08/14/2024 7: 20 PM BUSINESS ATTORNEY NURSING IMAGE EXAM Routine 08/14/2024 7: 20 PM BUSINESS ATTORNEY NURSING IMAGE EXAM Routine 08/14/2024 7: 20 PM BUSINESS ATTORNEY PHOSPHORUS (INORGANIC), S Timed 08/14/2024 2:42 PM BUSINESS ATTORNEY ADULT OXYGEN THERAPY Routine 08/14/2024 8:00 AM BUSINESS ATTORNEY PULSE OXIMETRY, CONTINUOUS Routine 08/14/2024 8:00 AM BUSINESS ATTORNEY MORPHOLOGY EVALUATION Routine 08/14/2024 5:56 AM BUSINESS ATTORNEY PHOSPHORUS (INORGANIC), S Routine 08/14/2024 5:56 AM BUSINESS ATTORNEY MAGNESIUM, S Routine 08/14/2024 5:56 AM BUSINESS ATTORNEY HEPATIC FUNCTION PANEL, S Routine 08/14/2024 5:56 AM BUSINESS ATTORNEY CBC WITH DIFFERENTIAL, B Routine 08/14/2024 5:56 AM BUSINESS ATTORNEY BASIC METABOLIC PANEL, S/P Routine 08/14/2024 5:56 AM BUSINESS ATTORNEY PHOSPHORUS (INORGANIC), S Routine 08/13/2024 10:02 PM BUSINESS ATTORNEY ADULT OXYGEN THERAPY Routine 08/13/2024 8:00 PM BUSINESS ATTORNEY PULSE OXIMETRY, CONTINUOUS Routine 08/13/2024 8:00 PM BUSINESS ATTORNEY ADULT OXYGEN THERAPY Routine 08/13/2024 8:01 AM BUSINESS ATTORNEY PULSE OXIMETRY, CONTINUOUS Routine 08/13/2024 8:01 AM BUSINESS ATTORNEY MAGNESIUM, S Routine 08/13/2024 5:11 AM BUSINESS ATTORNEY HEPATIC FUNCTION PANEL, S Routine 08/13/2024 5:11 AM BUSINESS ATTORNEY CBC WITH DIFFERENTIAL, B Routine 08/13/2024 5:11 AM BUSINESS ATTORNEY BASIC METABOLIC PANEL, S/P Routine 08/13/2024 5:11 AM BUSINESS ATTORNEY PHOSPHORUS (INORGANIC), S Routine 08/13/2024 5:11 AM BUSINESS ATTORNEY ADULT OXYGEN THERAPY Routine 08/12/2024 8:00 PM BUSINESS ATTORNEY PULSE OXIMETRY, CONTINUOUS Routine 08/12/2024 8:00 PM BUSINESS ATTORNEY ADULT OXYGEN THERAPY Routine 08/12/2024 8:01 AM BUSINESS ATTORNEY PULSE OXIMETRY, CONTINUOUS Routine 08/12/2024 8:01 AM BUSINESS ATTORNEY HEPARIN LEVEL ANTI-XA ASSAY, P Routine 08/12/2024 5:41 AM BUSINESS ATTORNEY PHOSPHORUS (INORGANIC), S Routine 08/12/2024 5:41 AM BUSINESS ATTORNEY MAGNESIUM, S Routine 08/12/2024 5:41 AM BUSINESS ATTORNEY HEPATIC FUNCTION PANEL, S Routine 08/12/2024 5:41 AM BUSINESS ATTORNEY CBC WITH DIFFERENTIAL, B Routine 08/12/2024 5:41 AM BUSINESS ATTORNEY BASIC METABOLIC PANEL, S/P Routine 08/12/2024 5:41 AM BUSINESS ATTORNEY HEPARIN LEVEL ANTI-XA ASSAY, P Timed 08/11/2024 9:22 PM BUSINESS ATTORNEY ADULT OXYGEN THERAPY Routine 08/11/2024 8:00 PM BUSINESS ATTORNEY PULSE OXIMETRY, CONTINUOUS Routine 08/11/2024 8:00 PM BUSINESS ATTORNEY HEPARIN LEVEL ANTI-XA ASSAY, P Timed 08/11/2024 1:24 PM BUSINESS ATTORNEY ADULT OXYGEN THERAPY Routine 08/11/2024 8:00 AM BUSINESS ATTORNEY PULSE OXIMETRY, CONTINUOUS Routine 08/11/2024 8:00 AM BUSINESS ATTORNEY HEPARIN LEVEL ANTI-XA ASSAY, P Routine 08/11/2024 6:00 AM BUSINESS ATTORNEY PHOSPHORUS (INORGANIC), S Routine 08/11/2024 6:00 AM BUSINESS ATTORNEY MAGNESIUM, S Routine 08/11/2024 6:00 AM BUSINESS ATTORNEY HEPATIC FUNCTION PANEL, S Routine 08/11/2024 6:00 AM BUSINESS ATTORNEY CBC WITH DIFFERENTIAL, B Routine 08/11/2024 6:00 AM BUSINESS ATTORNEY BASIC METABOLIC PANEL, S/P Routine 08/11/2024 6:00 AM BUSINESS ATTORNEY ADULT OXYGEN THERAPY Routine 08/10/2024 8:00 PM BUSINESS ATTORNEY PULSE OXIMETRY, CONTINUOUS Routine 08/10/2024 8:00 PM BUSINESS ATTORNEY NURSING IMAGE EXAM Routine 08/10/2024 2: 29 PM BUSINESS ATTORNEY ADULT OXYGEN THERAPY Routine 08/10/2024 8:01 AM BUSINESS ATTORNEY PULSE OXIMETRY, CONTINUOUS Routine 08/10/2024 8:01 AM BUSINESS ATTORNEY HEPARIN LEVEL ANTI-XA ASSAY, P Timed 08/10/2024 5:06 AM BUSINESS ATTORNEY PHOSPHORUS (INORGANIC), S Routine 08/10/2024 5:06 AM BUSINESS ATTORNEY MAGNESIUM, S Routine 08/10/2024 5:06 AM BUSINESS ATTORNEY HEPATIC FUNCTION PANEL, S Routine 08/10/2024 5:06 AM BUSINESS ATTORNEY CBC WITH DIFFERENTIAL, B Routine 08/10/2024 5:06 AM BUSINESS ATTORNEY BASIC METABOLIC PANEL, S/P Routine 08/10/2024 5:06 AM BUSINESS ATTORNEY HEPARIN LEVEL ANTI-XA ASSAY, P Timed 08/09/2024 9:33 PM BUSINESS ATTORNEY ADULT OXYGEN THERAPY Routine 08/09/2024 8:00 PM BUSINESS ATTORNEY PULSE OXIMETRY, CONTINUOUS Routine 08/09/2024 8:00 PM BUSINESS ATTORNEY IR PERCUTANEOUS CHOLECYSTOSTOMY TUBE PLACEMENT RAD - Routine (most inpatients and all outpatients) 08/09/2024 12:45 PM BUSINESS ATTORNEY FUNGAL CULTURE, ROUTINE Timed 08/09/2024 12:30 PM BUSINESS ATTORNEY BACTERIAL CULTURE, ANAEROBIC + SUSC Timed 08/09/2024 12:30 PM BUSINESS ATTORNEY GRAM STAIN Timed 08/09/2024 12:30 PM BUSINESS ATTORNEY BACTERIAL CULTURE, AEROBIC + SUSC Timed 08/09/2024 12:30 PM BUSINESS ATTORNEY ADULT OXYGEN THERAPY Routine 08/09/2024 8:01 AM BUSINESS ATTORNEY PULSE OXIMETRY, CONTINUOUS Routine 08/09/2024 8:01 AM BUSINESS ATTORNEY HEPARIN LEVEL ANTI-XA ASSAY, P Timed 08/09/2024 6:29 AM BUSINESS ATTORNEY PHOSPHORUS (INORGANIC), S Routine 08/09/2024 6:29 AM BUSINESS ATTORNEY MAGNESIUM, S Routine 08/09/2024 6:29 AM BUSINESS ATTORNEY HEPATIC FUNCTION PANEL, S Routine 08/09/2024 6:29 AM BUSINESS ATTORNEY CBC WITH DIFFERENTIAL, B Routine 08/09/2024 6:29 AM BUSINESS ATTORNEY BASIC METABOLIC PANEL, S/P Routine 08/09/2024 6:29 AM BUSINESS ATTORNEY ADULT OXYGEN THERAPY Routine 08/08/2024 8:01 PM BUSINESS ATTORNEY PULSE OXIMETRY, CONTINUOUS Routine 08/08/2024 8:[address] ABDOMEN PELVIS WITH IV CONTRAST RAD - Routine (most inpatients and all outpatients) 08/08/2024 7:00 PM BUSINESS ATTORNEY HEPARIN LEVEL ANTI-XA ASSAY, P Timed 08/08/2024 5:01 PM BUSINESS ATTORNEY NM HEPATOBILIARY WITH PHARM RAD - Emergent (Fastest; for the most critically ill patients) 08/08/2024 4:07 PM BUSINESS ATTORNEY INTERNAL MEDICINE IMAGE EXAM Routine 08/08/2024 1:40 PM BUSINESS ATTORNEY (TTE) 2D ECHO DOPPLER COLOR AND CONTRAST STAT 08/08/2024 9:01 AM BUSINESS ATTORNEY ADULT OXYGEN THERAPY Routine 08/08/2024 8:01 AM BUSINESS ATTORNEY PULSE OXIMETRY, CONTINUOUS Routine 08/08/2024 8:01 AM BUSINESS ATTORNEY HEPARIN LEVEL ANTI-XA ASSAY, P Timed 08/08/2024 7:47 AM BUSINESS ATTORNEY BACTERIA / ZENOBIA CULTURE, BLOOD STAT 08/08/2024 6:20 AM BUSINESS ATTORNEY BACTERIA / ZENOBIA CULTURE, BLOOD STAT 08/08/2024 6:08 AM BUSINESS ATTORNEY ECG Routine 08/08/2024 5:[address] CHEST ANGIOGRAM AND PULMONARY ARTERIES WITH IV CONTRAST RAD - Emergent (Fastest; for the most critically ill patients) 08/08/2024 5:31 AM BUSINESS ATTORNEY HC URINALYSIS AUTO WO MICRO STAT 08/08/2024 5:03 AM BUSINESS ATTORNEY URINALYSIS WITH MICROSCOPIC IF INDICATED, U STAT 08/08/2024 5:03 AM BUSINESS ATTORNEY BACTERIAL CULTURE, AEROBIC + SUSC, URINE STAT 08/08/2024 5:03 AM BUSINESS ATTORNEY US GALLBLADDER AND OR BILIARY DUCTS RAD - Emergent (Fastest; for the most critically ill patients) 08/08/2024 4:34 AM BUSINESS ATTORNEY TROPONIN T, 5TH GEN, P STAT 4:17 AM BUSINESS ATTORNEY PATIENT STATUS STAT 08/08/2024 4:17 AM BUSINESS ATTORNEY ACTIVATED PARTIAL THROMBOPLASTIN TIME (APTT), P STAT 08/08/2024 4:17 AM BUSINESS ATTORNEY LACTATE FOR SEPSIS WITH REFLEX STAT 08/08/2024 4:17 AM BUSINESS ATTORNEY C-REACTIVE PROTEIN (CRP), S/P STAT 08/08/2024 4:17 AM BUSINESS ATTORNEY ABG W/COOX STAT 08/08/2024 4:17 AM BUSINESS ATTORNEY COMPREHENSIVE METABOLIC PANEL, S/P STAT 08/08/2024 4:17 AM BUSINESS ATTORNEY CBC WITH DIFFERENTIAL, B STAT 08/08/2024 4:17 AM BUSINESS ATTORNEY ADULT OXYGEN THERAPY Routine 08/08/2024 4:01 AM BUSINESS ATTORNEY ADULT OXYGEN THERAPY Routine 08/08/2024 4:01 AM BUSINESS ATTORNEY ADULT OXYGEN THERAPY Routine 08/08/2024 4:01 AM BUSINESS ATTORNEY PULSE OXIMETRY, CONTINUOUS Routine 08/08/2024 4:01 AM BUSINESS ATTORNEY PULSE OXIMETRY, CONTINUOUS Routine 08/08/2024 4:01 AM BUSINESS ATTORNEY PULSE OXIMETRY, CONTINUOUS Routine 08/08/2024 4:01 AM BUSINESS ATTORNEY LIPID PANEL, S Routine 05/27/2018 4:02 AM BUSINESS ATTORNEY from Last 3 Months or Most Recently Relevant to Health Maintenance Results * (ABNORMAL) Morphology Evaluation (08/16/2024 5:44 AM BUSINESS ATTORNEY) Only the most recent of3 resultswithin the time period is included. Pathologist [facility] RBC Morphology See Specific Findings 08/16/2024 6:59 AM BUSINESS ATTORNEY MKTO PLT Morphology Normal 08/16/2024 6:59 AM BUSINESS ATTORNEY MKTO PLT Estimate Adequate Adequate 08/16/2024 6:59 AM BUSINESS ATTORNEY MKTO Polychromasia Slight(A) Not Seen 08/16/2024 6:59 AM BUSINESS ATTORNEY MKTO Blood 08/16/2024 5:44 AM BUSINESS ATTORNEY 08/16/2024 5:52 AM BUSINESS ATTORNEY us Yasmani Shea M.D. LAB BLOOD ADD-ON Final Result [facility] [address] [place] [address], [facility] MKTO [facility] [place] [address] [place] [id number] * (ABNORMAL) Manual Differential, Blood (08/16/2024 5:44 AM BUSINESS ATTORNEY) Only the most recent of2 resultswithin the time period is included. Pathologist [facility] Segmented Neutrophils 73 50 - 75 % 08/16/2024 6:59 AM BUSINESS ATTORNEY MKTO Lymphocytes % 18 18 - 42 % 08/16/2024 6:59 AM BUSINESS ATTORNEY MKTO Monocytes 4 2 - 11 % 08/16/2024 6:59 AM BUSINESS ATTORNEY MKTO Eosinophils 3 1 - 3 % 08/16/2024 6:59 AM BUSINESS ATTORNEY MKTO Basophils 1 0 - 2 % 08/16/2024 6:59 AM BUSINESS ATTORNEY MKTO Myelocytes 1(H) <0.5 % 08/16/2024 6:59 AM BUSINESS ATTORNEY MKTO Manual Absolute Neutrophil Count 6.50(H) 1.56 - 6.45 x10(9)/L 08/16/2024 6:59 AM BUSINESS ATTORNEY MKTO Comment: ----ADDITIONAL INFORMATION---- The manual absolute neutrophil count is derived from a manual differential count and therefore is not exactly comparable to the automated absolute neutrophil count. Blood 08/16/2024 5:44 AM BUSINESS ATTORNEY 08/16/2024 5:52 AM BUSINESS ATTORNEY us Yasmani Shea M.D. LAB BLOOD ADD-ON Final Result [facility] [address] [place] [address], [address] [address] * (ABNORMAL) CBC with Differential, Blood (08/16/2024 5:44 AM BUSINESS ATTORNEY) Only the most recent of9 resultswithin the time period is included. Pathologist [facility] Hemoglobin 12.1(L) 13.2 - 16.6 g/dL 08/16/2024 5:55 AM BUSINESS ATTORNEY MKTO Hematocrit 37.6(L) 38.3 - 48.6 % 08/16/2024 5:55 AM BUSINESS ATTORNEY MKTO Erythrocytes 4.38 4.35 - 5.65 x10(12)/ L 08/16/2024 5:55 AM BUSINESS ATTORNEY MKTO MCV 85.8 78.2 - 97.9 fL 08/16/2024 5:55 AM BUSINESS ATTORNEY MKTO RBC Distrib Width 15.7(H) 11.8 - 14.5 % 08/16/2024 5:55 AM BUSINESS ATTORNEY MKTO Platelet Count 151 135 - 317 x10(9)/L 08/16/2024 5:55 AM BUSINESS ATTORNEY MKTO Leukocytes 8.9 3.4 - 9.6 x10(9)/L 08/16/2024 5:55 AM BUSINESS ATTORNEY MKTO Neutrophils See manual differential 1.56 - 6.45 x10(9)/L 08/16/2024 6:59 AM BUSINESS ATTORNEY MKTO Blood (Blood, Venous) 08/16/2024 5:44 AM BUSINESS ATTORNEY 08/16/2024 5:52 AM BUSINESS ATTORNEY us Yasmani Shea M.D. LAB BLOOD ADD-ON Final Result [facility] [address] [place] [address], [address] [address] * (ABNORMAL) Basic Metabolic Panel (08/16/2024 5:44 AM BUSINESS ATTORNEY) Only the most recent of8 resultswithin the time period is included. Potassium, P 4.0 3.6 - 5.2 mmol/L 08/16/2024 6:15 AM BUSINESS ATTORNEY MKTO Sodium, P 137 135 - 145 mmol/L 08/16/2024 6:15 AM BUSINESS ATTORNEY MKTO Chloride, P 106 98 - 107 mmol/L 08/16/2024 6:15 AM BUSINESS ATTORNEY MKTO Bicarbonate, P 21(L) 22 - 29 mmol/L 08/16/2024 6:15 AM BUSINESS ATTORNEY MKTO Anion Gap, P 10 7 - 15 08/16/2024 6:15 AM BUSINESS ATTORNEY MKTO BUN (Blood Urea Nitrogen), P 14 8 - 24 mg/dL 08/16/2024 6:15 AM BUSINESS ATTORNEY MKTO Creatinine 0.71(L) 0.74 - 1.35 mg/dL 08/16/2024 6:15 AM BUSINESS ATTORNEY MKTO Estimated GFR (eGFR) >90 >=60 mL/min/BSA 08/16/2024 6:15 AM BUSINESS ATTORNEY MKTO Comment: Estimated GFR calculated using the 2020 CKD_EPI creatinine equation. Calcium, Total, P 8.8 8.8 - 10.2 mg/dL 08/16/2024 6:15 AM BUSINESS ATTORNEY MKTO Glucose, P 167(H) 70 - 140 mg/dL 08/16/2024 6:15 AM BUSINESS ATTORNEY MKTO Blood (Blood, Venous) 08/16/2024 5:44 AM BUSINESS ATTORNEY 08/16/2024 5:52 AM BUSINESS ATTORNEY us Yasmani Shea M.D. LAB BLOOD ADD-ON Final Result [facility] [address] [place] [id number], [facility] MKTO [facility] [place] [address] * (ABNORMAL) Hepatic Function Panel (08/15/2024 5:32 AM BUSINESS ATTORNEY) Only the most recent of7 resultswithin the time period is included. Bilirubin, Total, P 0.4 0.0 - 1.2 mg/dL 08/15/2024 6:06 AM BUSINESS ATTORNEY MKTO Bilirubin, Direct, P 0.2 0.0 - 0.3 mg/dL 08/15/2024 6:06 AM BUSINESS ATTORNEY MKTO Aspartate Aminotransferase (AST), P 19 8 - 48 U/L 08/15/2024 6:06 AM BUSINESS ATTORNEY MKTO Alanine Aminotransferase (ALT), P 24 7 - 55 U/L 08/15/2024 6:06 AM BUSINESS ATTORNEY MKTO Alkaline Phosphatase, P 136(H) 40 - 129 U/L 08/15/2024 6:06 AM BUSINESS ATTORNEY MKTO Albumin, P 2.9(L) 3.5 - 5.0 g/dL 08/15/2024 6:06 AM BUSINESS ATTORNEY MKTO Protein, Total, P 6.1(L) 6.3 - 7.9 g/dL 08/15/2024 6:06 AM BUSINESS ATTORNEY MKTO Blood (Blood, Venous) 08/15/2024 5:32 AM BUSINESS ATTORNEY 08/15/2024 5:45 AM BUSINESS ATTORNEY Vish Nicole M.D., Ph.D. LAB BLOOD ADD -ON Final Result Performing Organization Address City/[facility] Co de Phone Number [facility] [address] [place] [address], [place] [address] * Phosphorus Inorganic (08/15/2024 5:32 AM BUSINESS ATTORNEY) Only the most recent of9 resultswithin the time period is included. Phosphorus (Inorganic), P 2.6 2.5 - 4.5 mg/dL 08/15/2024 6:06 AM BUSINESS ATTORNEY MKTO Blood (Blood, Venous) 08/15/2024 5:32 AM BUSINESS ATTORNEY 08/15/2024 5:45 AM BUSINESS ATTORNEY us Vish Nicole M.D., Ph.D. LAB BLOOD ADD -ON Final Result Performing Organization Address [facility]/ZIP Co de Phone Number [facility] [address] [place], [place] [address], [place] [address] * Magnesium (08/15/2024 5:32 AM BUSINESS ATTORNEY) Only the most recent of7 resultswithin the time period is included. Magnesium, P 2.1 1.7 - 2.3 mg/dL 08/15/2024 6:06 AM BUSINESS ATTORNEY [facility] Blood (Blood, Venous) 08/15/2024 5:32 AM BUSINESS ATTORNEY 08/15/2024 5:45 AM BUSINESS ATTORNEY us Vish Nicole M.D., Ph.D. LAB BLOOD ADD -ON Final Result Performing Organization Address City/[facility]/ZIP Co de Phone Number [facility] [address] [place] [address], [facility] [place] [address] * Leg, right-Nursing Image Exam (08/14/2024 7:20 PM BUSINESS ATTORNEY) Only the most recent of5 resultswithin the time period is included. 08/14/2024 7:17 PM BUSINESS ATTORNEY Narrative IIMS - 08/14/2024 7:20 PM BUSINESS ATTORNEY This order has been created and auto-finalized to support the import of images acquired without order. The clinical documentation to support these images can be found on the encounter that produced images. us Provider Not In System IMG NON RAD IMAGING PROCE DURES Final Result Performing Organization Address City/[facility]/ZIP Co de Phone Number [facility]IM[facility] NA * Heparin Anti-Xa Assay (08/12/2024 5:41 AM BUSINESS ATTORNEY) Only the most recent of9 resultswithin the time period is included. Heparin Anti-Xa, P 0.60 IU/mL 2024 6:01 AM BUSINESS ATTORNEY [facility] Comment: UFH therapeutic range: 0.30-0.70 IU/mL LMWH therapeutic range: 0.50-1.00 IU/mL 0.50-1.00 IU/mL for twice daily dosing 1.00-2.00 IU/mL for once daily dosing (sample obtained 4-6 hours following subcutaneous injection) LMWH prophylactic range:0.10-0.30 IU/mL ----ADDITIONAL INFORMATION---- Heparin Anti-Xa is used to measure heparin concentrations in patients receiving low molecular weight heparin (LMWH) or unfractionated heparin (UFH). Blood (Blood, Venous) 08/12/2024 5:41 AM BUSINESS ATTORNEY 08/12/2024 5:45 AM BUSINESS ATTORNEY us Vish Nicole M.D., Ph.D. LAB BLOOD NON ADD-ON Final Result [facility] [address] [place] [address], [facility] MKTO [facility] [place] [address] [place] [address] * IR Percutaneous Cholecystostomy Tube Placement (08/09/2024 12:45 PM BUSINESS ATTORNEY) Anatomical Region Laterality Modality Abdomen, Vascular Interventi onal RST LOS, Vascular Interventional ARZ LOS, Vascular Interventional FLA LOS N/A Digital Radiography Impressions 08/11/2024 11:43 PM BUSINESS ATTORNEY 1. Insertion of an intercostal transhepatic 10 Mauritian cholecystostomy drain. Narrative 08/11/2024 11:43 PM BUSINESS ATTORNEY EXAM: IR PERCUTANEOUS CHOLECYSTOSTOMY TUBE PLACEMENT HISTORY: [...] medications. Patient education provided by a care produce production team member. Patient was ready to learn with no [...] side: Right upper quadrant intercostal Catheter: 10.2 Mauritian multipurpose pigtail drain Technique: Image guidance was used to localize a transhepatic path to the gallbladder. A 19-gauge TruGuide needle was used to access the gallbladder under real time image guidance, and images were saved to PACS. Aspiration yielded 10 mL of dark bile. A guidewire was inserted, and the tract was dilated to accommodate a 12 Mauritian pigtail drain. The catheter was secured with [...] medications. Patient education provided by a care produce production team member. Patient was ready to learn withno apparent learning barriers were identified. Post-procedure careexplained; patient expressed understanding of the content. PROCEDURE DETAILS: Sedation: None. Local anesthesia was achieved with lidocaine. Sedation time: Not applicable. Estimated Blood Loss: Less than 10 mL. TECHNIQUE: Imaging guidance for drain insertion: Real-time ultrasound and fluoroscopywith permanent image storage. Access side: Right upper quadrant intercostal Catheter: 10.2 Mauritian multipurpose pigtail drain Technique: Image guidance was [...] 1. Insertion of an intercostal transhepatic 10 Mauritian cholecystostomydrain. Anuel Nunn M.D. IMG IR PROCEDURES Final Resul t * Bacterial Culture, Aerobic + Susceptibility (08/09/2024 12:30 PM BUSINESS ATTORNEY) Bacterial Culture, Aerobic + Susc No growth after 5 days of incubation. 08/14/2024 8:51 AM BUSINESS ATTORNEY MKTO Fluid (Gallbladder) 08/09/2024 12:30 PM BUSINESS ATTORNEY 08/09/2024 12:47 PM BUSINESS ATTORNEY Comment:Specimen Source Site : Fluid us Anuel Nunn M.D. LAB MICROBIOLOGY - GENERAL OR DERABLES Final Result Performing Organization Address City/[facility]/ZIP Co de Phone Number [facility] [address] [place] [address], [address] [address] * Gram Stain (08/09/2024 12:30 PM BUSINESS ATTORNEY) Gram Stain No organisms seen. White blood cells, Few. 08/09/2024 2:25 PM BUSINESS ATTORNEY [facility] Fluid (Gallbladder) 08/09/2024 12:30 PM BUSINESS ATTORNEY 08/09/2024 12:47 PM BUSINESS ATTORNEY Comment:Specimen Source Site : Fluid us Anuel Nunn M.D. LAB MICROBIOLOGY - GENERAL OR DERABLES Final Result Performing Organization Address [facility] Co de Phone Number [facility] [address] [place] [address], [address] [address] * Bacterial Culture, Anaerobic + Susceptibility (08/09/2024 12:30 PM BUSINESS ATTORNEY) Bacterial Culture, Anaerobic No growth after 7 days of incubation. 08/16/2024 7:54 AM BUSINESS ATTORNEY [facility] Fluid (Gallbladder) 08/09/2024 12:30 PM BUSINESS ATTORNEY 08/09/2024 12:47 PM BUSINESS ATTORNEY Comment:Specimen Source Site : Fluid us Anuel Nunn M.D. LAB MICROBIOLOGY - GENERAL OR DERABLES Final Result Performing Organization Address City/[facility]/ZIP Co de Phone Number [facility] [address] [place] [address], [address] [address] * CT Abdomen Pelvis with IV Contrast (08/08/2024 7:00 PM BUSINESS ATTORNEY) Anatomical Region Laterality Modality Abdomen, Pelvis, Abdominal R ST LOS, Abdominal ARZ LOS, Abdominal FLA LOS N/A Computed Tomography 08/08/2024 7:03 PM BUSINESS ATTORNEY Impressions 08/08/2024 7:48 PM BUSINESS ATTORNEY Findings compatible with cholecystitis. Diffuse gallbladder wall thickening, adjacent fat stranding, and mild gallbladder distention. Narrative 08/08/2024 7:48 PM BUSINESS ATTORNEY EXAM: CT ABDOMEN PELVIS WITH IV CONTRAST [...] dilatation. Urinary bladder is decompressed by a Eason catheter. No bowel dilatation or wall thickening. [...] dilatation. Urinary bladder is decompressed by a Eason catheter. No bowel dilatation or wallthickening. Normal appendix. No ascites. No free air. Normal caliberabdominal aorta and IVC. 2 cm umbilical hernia containing fat. Internalfixation right hip. IMPRESSION: Findings compatible with cholecystitis. Diffuse gallbladder wallthickening, adjacent fat stranding, and mild gallbladder distention. Anuel Nunn M.D. IMG CT PROCEDURES Final Resul t * NM Hepatobiliary with Pharmacologic Intervention (08/08/2024 4:07 PM BUSINESS ATTORNEY) Anatomical Region Laterality Modality Abdomen, Nuclear Medicine RS T LOS, Nuclear Medicine ARZ LOS, Nuclear Medicine FLA LOS, Nuclear Medicine N/A Nuclea r Medicine Impressions 08/08/2024 4:22 PM BUSINESS ATTORNEY 1. No evidence of the cholecystitis or biliary obstruction. 2. Photopenic area at the dome on the right lobe of liver, recommend liver ultrasound or hepatic CT for further evaluation. Narrative 08/08/2024 4:22 PM BUSINESS ATTORNEY EXAM: NM HEPATOBILIARY WITH PHARM COMPARISON: None [...] hepatic CT for further evaluation. Josep Lomax IMG NM PROCEDURES Final Result * Buttocks 527a-Internal Medicine Image Exam (08/08/2024 1:40 PM BUSINESS ATTORNEY) 08/08/2024 1:36 PM BUSINESS ATTORNEY Narrative IIMS - 08/08/2024 1:40 PM BUSINESS ATTORNEY This order has been created and auto-finalized to support the import of images acquired without order. The clinical documentation to support these images can be found on the encounter that produced images. Provider Not In System IMG NON RAD IMAGING PROCE DURCANDIDO Final Result IIMS NA * (TTE) 2D ECHO DOPPLER COLOR AND CONTRAST (08/08/2024 9:01 AM BUSINESS ATTORNEY) Ejection Fraction 68 MC CV EIMS Mid-Ascending [...] Region Laterality Modality Echocardiography 08/08/2024 7:37 AM BUSINESS ATTORNEY Impressions 08/08/2024 9:30 AM BUSINESS ATTORNEY Echo performed at the patient's bedside. LEFT [...] per Echocardiography Contrast Administration Protocol Reference Document [id number] Rev 11/04/2021. Patient met an inclusion criterion and did not have contraindications in screening sections. For the complete report, see the Order-Level Documents. Narrative 08/08/2024 9:30 AM BUSINESS ATTORNEY For the complete report, see the Order-Level [...] agentadministered per Echocardiography Contrast Administration ProtocolReference Document [id number] Rev 11/04/2021. Patient met an inclusioncriterion and did not have contraindications in screening sections. For the complete report, see the Order-Level Documents. Josep Lomax CV ECHO PROCEDURES Final Result * Bacteria / Zenobia Culture, Blood #2 (08/08/2024 6:20 AM BUSINESS ATTORNEY) Only the most recent of2 resultswithin the time period is included. Bacteria/Vannessa da Culture, Blood No growth after 5 day/s of incubation. 08/13/2024 7:05 AM BUSINESS ATTORNEY MKTO Blood (Blood, Peripheral Draw) 08/08/2024 6:20 AM BUSINESS ATTORNEY 08/08/2024 6:28 AM BUSINESS ATTORNEY Comment:Specimen Source Site : Blood Josep Lomax LAB MICROBIOLOGY - GENERAL ORDER TOMY Final Result Performing Organization Address City/[facility] Co de Phone Number [facility] [address] [place] [address], [facility] MKTO [facility] [address] [place] [address] * ECG 12 Lead (08/08/2024 5:57 AM BUSINESS ATTORNEY) Ventricular Rate ECG/Min 87 BPM MUSE CO Interval 206 ms MUSE QRSD Interval 96 ms MUSE QT Interval 362 ms MUSE QTC Interval 435 ms MUSE P [place] 50 degrees MUSE R [place] -10 degrees MUSE T Wave [place] 54 degrees MUSE 08/08/2024 5:57 AM BUSINESS ATTORNEY 08/08/2024 5:59 AM BUSINESS ATTORNEY Impressions MUSE - 08/08/2024 5:59 AM BUSINESS ATTORNEY Normal sinus rhythm with 1st degree A-V block Normal ECG When compared with ECG of 14-Dec-2022 06:47, CO interval has increased Reviewed by VALE Melara Narrative Procedure Note Rodolfo Estrada M.D., Ph.D. - 08/08/2024 IMPRESSION: Normal sinus rhythm with 1st degree A-V block Normal ECG When compared with ECG of 14-Dec-2022 06:47, CO interval has increased Reviewed by VALE Melara [employer] ECG ORDERABLES Final Result Performing Organization Address [facility]/ZIP Co de Phone Number MUSE NA * CT Chest Angiogram and Pulmonary Arteries with IV Contrast (08/08/2024 5:31 AM BUSINESS ATTORNEY) Anatomical Region Laterality Modality Chest, Cardiovascular RST LO S, Thoracic ARZ LOS, Thoracic FLA LOS N/A Computed Tomography 08/08/2024 5:28 AM BUSINESS ATTORNEY Impressions 08/08/2024 5:49 AM BUSINESS ATTORNEY 1. Positive for acute pulmonary embolism. 2. Signs of right ventricular dysfunction are absent. Critical result reported to JOSEP LOMAX on 08/08/2024 5:47 AM via [employer] secure chat Narrative 08/08/2024 5:49 AM BUSINESS ATTORNEY EXAM: CT CHEST ANGIOGRAM AND PULMONARY ARTERIES [...] JOSEP LOMAX on 08/08/2024 5:47 AM via [employer] chat Josep Lomax IMG CT PROCEDURES Final Result * (ABNORMAL) Urinalysis with Microscopic if Indicated: Urine, Indwelling Catheter (08/08/2024 5:03 AM BUSINESS ATTORNEY) Source Urine, Urine, Indwelling Catheter 08/08/2024 5:13 AM BUSINESS ATTORNEY MKTO Clarity Turbid(A) Clear 08/08/2024 5:13 AM BUSINESS ATTORNEY MKTO Color Allyson 08/08/2024 5:13 AM BUSINESS ATTORNEY MKTO Comment: ----REFERENCE VALUE---- Colorless Yellow Allyson Blood Large(A) Negative 08/08/2024 5:13 AM BUSINESS ATTORNEY MKTO Nitrite Negative Negative 08/08/2024 5:13 AM BUSINESS ATTORNEY MKTO Leukocyte Esterase Moderate(A) Negative 08/08/2024 5:13 AM BUSINESS ATTORNEY MKTO Protein 100(A) mg/dL 08/08/2024 5:13 AM BUSINESS ATTORNEY MKTO Comment: ----REFERENCE VALUE---- Negative Trace Glucose Negative Negative mg/dL 08/08/2024 5:13 AM BUSINESS ATTORNEY MKTO Ketone Negative Negative mg/dL 08/08/2024 5:13 AM BUSINESS ATTORNEY MKTO Bilirubin Negative Negative 08/08/2024 5:13 AM BUSINESS ATTORNEY MKTO pH 5.5 5.0 - 8.0 08/08/2024 5:13 AM BUSINESS ATTORNEY MKTO Specific [place] >1.035(A) 1.001 - 1.035 08/08/2024 5:13 AM BUSINESS ATTORNEY MKTO Urobilinogen 1.0 0.2 - 1.0 mg/dL 08/08/2024 5:13 AM BUSINESS ATTORNEY MKTO Urine (Urine, Indwelling Catheter) 08/08/2024 5:03 AM BUSINESS ATTORNEY 08/08/2024 5:09 AM BUSINESS ATTORNEY Josep Lomax LAB URINE ORDERABLES Final Resul t [facility] [address] [place] [address], [facility] MKTO [facility] [address] [place] [address] * (ABNORMAL) Microscopic Automated (08/08/2024 5:03 AM BUSINESS ATTORNEY) White Blood Cells >100(A) /hpf 025 5:47 AM BUSINESS ATTORNEY MKTO Comment: ----REFERENCE VALUE---- Males: 0-3 Females: 0-10 Unknown: 0-10 Red Blood Cells 3-10(A) 0 - 2 /hpf 08/08/2024 5:47 AM BUSINESS ATTORNEY MKTO Dysmorphic Red Blood Cells <=25 <=25 % 08/08/2024 5:47 AM BUSINESS ATTORNEY MKTO Squamous Cells Occ-3 /hpf 08/08/2024 5:47 AM BUSINESS ATTORNEY MKTO Transitional Cells Occ-3(A) None Seen /hpf 08/08/2024 5:47 AM BUSINESS ATTORNEY MKTO Bacteria Present(A ) None Seen 08/08/2024 5:47 AM BUSINESS ATTORNEY MKTO Urine 08/08/2024 5:03 AM BUSINESS ATTORNEY 08/08/2024 5:09 AM BUSINESS ATTORNEY us Soft Results Interface LAB URINE ORDERABLES Nieves l Result Performing Organization Address City/[facility]/ZIP Co de Phone Number [facility] [address] [place] [address] * Bacterial Culture, Aerobic + Susceptibility, Urine (08/08/2024 5:03 AM BUSINESS ATTORNEY) Urine Culture Urogenital microbiota, susceptibilities not performed per laboratory criteria. 08/09/2024 8:59 AM BUSINESS ATTORNEY MKTO Urine (Urine, Indwelling Catheter) 08/08/2024 5:03 AM BUSINESS ATTORNEY 08/08/2024 5:09 AM BUSINESS ATTORNEY Comment:Specimen Source Site : Urine us Josep Lomax LAB MICROBIOLOGY - GENERAL ORDER TOMY Final Result Performing Organization Address City/[facility]/ZIP Co de Phone Number [facility] [address] [place] [address] * US Gallbladder and or Biliary Ducts (08/08/2024 4:34 AM BUSINESS ATTORNEY) Anatomical Region Laterality Modality Abdomen, Ultrasound RST LOS, Ultrasound ARZ LOS, Ultrasound FLA LOS N/A Ultrasound Impressions 08/08/2024 4:47 AM BUSINESS ATTORNEY Somewhat limited visualization as above, with findings equivocal for acute cholecystitis. Narrative 08/08/2024 4:47 AM BUSINESS ATTORNEY EXAM: US GALLBLADDER AND OR BILIARY DUCTS [...] Lomax IMG US PROCEDURES Final Result * Lactate for Sepsis with Reflex (08/08/2024 4:17 AM BUSINESS ATTORNEY) Lactate, B 1.2 0.5 - 2.2 mmol/L 08/08/2024 4:25 AM BUSINESS ATTORNEY MKTO Blood (Blood, Venous) 08/08/2024 4:17 AM BUSINESS ATTORNEY 08/08/2024 4:21 AM BUSINESS ATTORNEY Josep Lalito LAB BLOOD NON ADD-ON Final Resul t [facility] [address] [place] [address], [facility] MKTO [facility] [address] [address] * Patient Status (08/08/2024 4:17 AM BUSINESS ATTORNEY) O2 Flow 5.0 L/min 08/08/2024 4:22 AM BUSINESS ATTORNEY MKTO Spont. breaths/min CANCELED DEFAULT 08/08/2024 4:25 AM BUSINESS ATTORNEY MKTO Comment: Required information was not provided. Result canceled by the ancillary. Blood 08/08/2024 4:17 AM BUSINESS ATTORNEY 08/08/2024 4:21 AM BUSINESS ATTORNEY us Soft Results Interface LAB BLOOD NON ADD-ON Nieves l Result [facility] [address] [place] [address], [facility] [place] [address] * (ABNORMAL) Blood Gas with Coox, Arterial (08/08/2024 4:17 AM BUSINESS ATTORNEY) P O2 65(L) 83 - 108 mm Hg 08/08/2024 4:25 AM BUSINESS ATTORNEY MKTO P CO2 41 35 - 48 mm Hg 08/08/2024 4:25 AM BUSINESS ATTORNEY MKTO pH 7.40 7.35 - 7.45 pH 08/08/2024 4:25 AM BUSINESS ATTORNEY MKTO Base Excess 0 -2 - 3 mmol/L 08/08/2024 4:25 AM BUSINESS ATTORNEY MKTO HCO3 24 22 - 26 mmol/L 08/08/2024 4:25 AM BUSINESS ATTORNEY MKTO Hemoglobin, Venous 13.7 13.2 - 16.6 g/dL 08/08/2024 4:25 AM BUSINESS ATTORNEY MKTO O2Hb 89.2(L) 94.0 - 98.0 % 08/08/2024 4:25 AM BUSINESS ATTORNEY MKTO COHb 2.5 <3.0 % 08/08/2024 4:25 AM BUSINESS ATTORNEY MKTO MetHb 0.8 <1.5 % 08/08/2024 4:25 AM BUSINESS ATTORNEY MKTO CtO2 17.1(L) 18.0 - 21.0 vol % 08/08/2024 4:25 AM BUSINESS ATTORNEY MKTO Arterial Sample Site R-Radial 08/08/2024 4:25 AM BUSINESS ATTORNEY TO Comment:Rna's test not don e. Blood (Blood, Arterial) 08/08/2024 4:17 AM BUSINESS ATTORNEY 08/08/2024 4:21 AM BUSINESS ATTORNEY JaneeNetasq Lalito LAB BLOOD NON ADD-ON Final Resul t Performing Organization Address City/[facility]/ZIP Co de Phone Number [facility] [address] [place] [address], [facility] [address] [place] [phone] * APTT (Activated Partial Thromboplastin Time) (08/08/2024 4:17 AM BUSINESS ATTORNEY) Pathologist [facility] Activated Partial Thrombopl Time, P 32 25 - 37 sec 08/08/2024 4:32 AM BUSINESS ATTORNEY [facility] Blood (Blood, Venous) 08/08/2024 4:17 AM BUSINESS ATTORNEY 08/08/2024 4:21 AM BUSINESS ATTORNEY [employer] LAB BLOOD ADD-ON Final Result Performing Organization Address [facility] Co de Phone Number [facility] [address] [place] [address], [facility] [address] [place] [phone] * (ABNORMAL) CRP (C-Reactive Protein) (08/08/2024 4:17 AM BUSINESS ATTORNEY) Pathologist [facility] C-Reactive Protein (CRP), P 424.0(H) <5.0 mg/L 08/08/2024 4:59 AM BUSINESS ATTORNEY [facility] Blood (Blood, Venous) 08/08/2024 4:17 AM BUSINESS ATTORNEY 08/08/2024 4:21 AM BUSINESS ATTORNEY JanStackAdapt Lalito LAB BLOOD ADD-ON Final Result Performing Organization Address City/[facility]/ZIP Co de Phone Number [facility] [address] [place] [address], [place] [address] * (ABNORMAL) Troponin T, 5th Generation (08/08/2024 4:17 AM BUSINESS ATTORNEY) Pathologist [facility] Troponin T, 5th gen 54(H) <=15 ng/L 08/08/2024 5:18 AM BUSINESS ATTORNEY MKTO Blood (Blood, Venous) 08/08/2024 4:17 AM BUSINESS ATTORNEY 08/08/2024 5:03 AM BUSINESS ATTORNEY Josep Lomax LAB BLOOD ADD-ON Final Result [facility] [address] [place] [address] * (ABNORMAL) Comprehensive Metabolic Panel (08/08/2024 4:17 AM BUSINESS ATTORNEY) Pathologist [facility] Potassium, P 4.5 3.6 - 5.2 mmol/L 08/08/2024 4:40 AM BUSINESS ATTORNEY MKTO Sodium, P 136 135 - 145 mmol/L 08/08/2024 4:40 AM BUSINESS ATTORNEY MKTO Chloride, P 102 98 - 107 mmol/L 08/08/2024 4:40 AM BUSINESS ATTORNEY MKTO Bicarbonate, P 20(L) 22 - 29 mmol/L 08/08/2024 4:40 AM BUSINESS ATTORNEY MKTO Anion Gap, P 14 7 - 15 08/08/2024 4:40 AM BUSINESS ATTORNEY MKTO BUN (Blood Urea Nitrogen), P 23 8 - 24 mg/dL 08/08/2024 4:40 AM BUSINESS ATTORNEY MKTO Creatinine 1.52(H) 0.74 - 1.35 mg/dL 08/08/2024 4:40 AM BUSINESS ATTORNEY MKTO Estimated GFR (eGFR) 48(L) >=60 mL/min/BS A 08/08/2024 4:40 AM BUSINESS ATTORNEY MKTO Comment: Estimated GFR calculated using the 2020 CKD_EPI creatinine equation. Calcium, Total, P 8.8 8.8 - 10.2 mg/dL 08/08/2024 4:40 AM BUSINESS ATTORNEY MKTO Glucose, P 195(H) 70 - 140 mg/dL 08/08/2024 4:40 AM BUSINESS ATTORNEY MKTO Protein, Total, P 6.5 6.3 - 7.9 g/dL 08/08/2024 4:40 AM BUSINESS ATTORNEY MKTO Albumin, P 3.0(L) 3.5 - 5.0 g/dL 08/08/2024 4:40 AM BUSINESS ATTORNEY MKTO Aspartate Aminotransferase (AST), P 34 8 - 48 U/L 08/08/2024 4:40 AM BUSINESS ATTORNEY MKTO Alkaline Phosphatase, P 122 40 - 129 U/L 08/08/2024 4:40 AM BUSINESS ATTORNEY MKTO Alanine Aminotransferase (ALT), P 25 7 - 55 U/L 08/08/2024 4:40 AM BUSINESS ATTORNEY MKTO Bilirubin, Total, P 0.9 0.0 - 1.2 mg/dL 08/08/2024 4:40 AM BUSINESS ATTORNEY MKTO Blood (Blood, Venous) 08/08/2024 4:17 AM BUSINESS ATTORNEY 08/08/2024 4:21 AM BUSINESS ATTORNEY Josep Lomax LAB BLOOD ADD-ON Final Result [facility] [address] [place] [address], [facility] [place] [address] * (ABNORMAL) Lipid Panel (05/27/2018 4:02 AM BUSINESS ATTORNEY) Cholesterol, Total 128 mg/dL 05/27/2018 5:30 AM [facility] Comment: ----REFERENCE VALUE---- Desirable: < 200 Borderline high: 200 - 239 High: > or = 240 Triglycerides 174(H) mg/dL 05/27/2018 5:30 AM [facility] Comment: ----REFERENCE VALUE---- Normal: <150 Borderline high: 150-199 High: 200-499 Very high: > or =500 Cholesterol, HDL, S 28(L) >=40 mg/dL 05/27/2018 5:30 AM [facility] Calculated LDL 65 mg/dL 05/27/2018 5:30 AM BUSINESS ATTORNEY [facility] Comment: ----REFERENCE VALUE---- Desirable: <100 Above Desirable: 100-129 Borderline high: 130-159 High: 160-189 Very high: > or =190 Cholesterol, Non-HDL, Calculated 100 mg/dL 05/27/2018 5:30 AM BUSINESS ATTORNEY [facility] Comment: ----REFERENCE VALUE---- Desirable: <130 Above Desirable: 130-159 Borderline high: 160-189 High: 190-219 Very high: > or =220 Blood (Blood, Venous) 05/27/2018 4:02 AM BUSINESS ATTORNEY 05/27/2018 4:20 AM BUSINESS ATTORNEY Ritchie Acuña M.D. 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 See document viewer. * DNR/DNI (Latest Code Status on File) Date Activated Date Inactivated Comments 08/08/2024 4:01 AM 08/16/2024 8:00 PM Question Answer Comments DNR/DNI (Do Not Resuscitate/Do Not Intubate): Di scussed-Patient * DNR/DNI Date Activated Date Inactivated Comments 12/22/2022 3:47 PM 01/25/2023 6:15 PM * Full Code Date Activated Date Inactivated Comments 12/15/2022 11:01 AM 12/22/2022 3:12 PM Question Answer Comments Full Code: Discussed * DNR/DNI Date Activated Date Inactivated Comments 12/14/2022 5:41 PM 12/15/2022 11:01 AM * Full Code Date Activated Date Inactivated Comments 11/13/2022 11:13 AM 12/10/2022 4:34 PM Question Answer Comments Full Code: Discussed Care Teams Ice House Supervisor Relationship Specialty Start Date End Date Jeff Reyes M.D. [address] [place] [address] PCP - General 03/14/24
--- OUTSIDE RECORDS SUMMARY | 2024-08-21 14:03 | XMS_ITS | Patient Health Record ---
Author Organization [facility] Address [address] [place] [address] Care Team Providers Care Grapple Yarder Operator Name Role Phone Rubén Paez MD Primary Care Provider Melody Michael [place] Unavailable [phone] Reason For Referral No Information Social History Tobacco Use: Social History Observation Description Date Details (start date - stop date) Former Smoker NA - NA Tobacco Use/Smoking Question Answer Notes Are you a former smoker Section Notes: FAMILY HISTORY: HISTORY OF FAMILY PSYCH: Problems Problem Type SNOMED Code ICD Code Onset Dates Problem Status W/U Status Risk Notes Problem Tinea unguium (519490747) Tinea unguium (B35.1) Active confirmed Problem 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 (026467345) 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 confirmed Problem 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 Problem Pressure injury of right buttock stage III (disorder) (00654708002479 ) Pressure ulcer of right buttock, stage 3 (L89.313) Active confirmed Problem Pressure injury of right heel stage IV (disorder) (74596439667222 ) Pressure ulcer of right heel, stage 4 (L89.614) Active confirmed Plan Of Treatment No Information Insurance Providers Payer Name Payer Address Payer Phone Subscriber Number Group Number Insured Name Patient Relationship to Insured Coverage Start Date Coverage End Date [employer] [address] (Government Programs) [address] [address] [place], [place] [id number] Ren Ramirez Self - patient is the insured 7 [facility] [employer]/Med [employer] [address] [facility] [address] [phone] [id number] Ren Ramirez Self - patient is the insured 3
== END 2024-08-20 15:21 | disposition home or self-care (01) ==
PROVIDERS: Emergency Provider Family Medicine; PCP Family Medicine
DX: M25.531 Pain in right wrist (principal); R41.0 Disorientation, unspecified
CPT/HCPCS: 20605; 36415; 70450; 73110; 80053; 83605; 84550; 85025; 85379; 86140; 93971; 99283; 99284; 99285; A9270

== ENCOUNTER 2024-08-20 15:12 | Outpatient (CLI) | payer MEDICARE, SELFPAY | END 2024-08-20 15:13 | disposition home or self-care (01) | PROVIDERS: PCP Family Medicine; Visit Provider Emergency Medicine | DX: M11.231 Other chondrocalcinosis, right wrist (principal) | CPT/HCPCS: A0425; A0428 ==

== ENCOUNTER 2024-08-30 07:12 | Outpatient (CLI) | payer MEDICARE, SELFPAY ==
--- NOTE | 2024-08-30 07:15 | CRLHL7_ITS ---
For Patients: As a result of the Century Cures Act, medical imaging exams and procedure reports are released immediately into your electronic medical record. You may view this report before your referring provider. If you have questions, please contact your health care provider. INDICATION: Liver mass; patient with PE and acute cholecystitis; status post cholecystostomy. COMPARISON: CT abdomen and pelvis with intravenous contrast August 07, 2024. TECHNIQUE: Precontrast T1 and T2 weighted imaging; T2 haste imaging; diffusion-weighted imaging; in and out of phase imaging; postcontrast imaging including subtraction; 20 cc of dotarem contrast was injected. Findings : A 6.3 cm lesion identified in the dome of the liver which has intermediate to high signal on the precontrast T2 haste imaging and low signal on the precontrast T1 weighted imaging. No obvious enhancement postcontrast administration. A 1.2 cm lesion in segment 7 of the liver with similar imaging characteristics. Mild diffuse fatty infiltration of the liver. No splenic abnormality. No pancreatic pathology. Cholecystostomy tube in place. No adrenal pathology. A 1.8 x 1.1 cm partially exophytic lesion identified in the lateral aspect lower pole left kidney which has high signal on precontrast T1 weighted imaging and low signal on the precontrast T2 haste imaging without enhancement post contrast administration most likely indicating a hemorrhagic/complicated cyst. A 1.3 cm lesion upper pole left kidney with similar imaging characteristics again most likely indicating a hemorrhagic cyst. A 3.5 cm simple cortical cyst mid right kidney. No retroperitoneal lymphadenopathy. No evidence of abdominal ascites. IMPRESSION: Lesions identified in the dome of the liver and in segment 7; indeterminate by MR; suggest obtaining an ultrasound examination of the liver and image guided biopsy or aspiration of the larger lesion in the dome when clinically feasible. hemorrhagic/complicated cysts left kidney. Dictated by Ozzie Pinedo MD @ 08/30/2024 1:17:36 PM (Electronically Signed)
== END 2024-08-30 07:13 | disposition home or self-care (01) ==
LOC: MRI 07:13
PROVIDERS: PCP Family Medicine; Visit Provider Nurse Practitioner Gerontology
DX: R16.0 Hepatomegaly, not elsewhere classified (principal); K76.9 Liver disease, unspecified; N28.1 Cyst of kidney, acquired
CPT/HCPCS: 74183; A9575

== ENCOUNTER 2024-09-02 10:39 | Outpatient (CLI) | payer MEDICARE, SELFPAY | END 2024-09-02 10:40 | disposition home or self-care (01) | LOC: AMB 09-05 13:10 | PROVIDERS: PCP Family Medicine; Visit Provider Family Medicine | DX: R11.2 Nausea with vomiting, unspecified (principal) | CPT/HCPCS: A0425; A0427 ==

== ENCOUNTER 2024-09-15 10:25 | Outpatient (CLI) | payer MEDICARE, SELFPAY | END 2024-09-15 10:26 | disposition home or self-care (01) | LOC: AMB 09-16 15:58 | PROVIDERS: PCP Family Medicine; Visit Provider Student in an Organized Health Care Education/Training Program | DX: R10.9 Unspecified abdominal pain (principal) | CPT/HCPCS: A0425; A0427 ==

== ENCOUNTER 2024-09-15 10:25 | Outpatient (CLI) | payer MEDICARE, SELFPAY | END 2024-09-15 10:26 | disposition home or self-care (01) | LOC: AMB 10-02 17:10 | PROVIDERS: PCP Family Medicine; Visit Provider Student in an Organized Health Care Education/Training Program | DX: R10.9 Unspecified abdominal pain (principal) | CPT/HCPCS: A0425; A0427 ==

== ENCOUNTER 2024-10-29 17:21 | Outpatient (REF) | payer MEDICARE, SELFPAY ==
[2024-10-29 18:18] LABS: Appearance Urine Turbid (Clear); Bilirubin Urine Negative (Negative); Blood Urine Trace-intact (Negative); Color Urine Yellow (Yellow); Glucose Urine Negative (Negative); Ketones Urine Negative (Negative); Leukocyte Esterase Urine 1+ (Negative); Nitrite Urine Negative (Negative); Protein Urine Negative (Negative); Specific Gravity Urine 1.015 (1.000-1.030); Urobilinogen Urine 0.2 (0.2-1.0); pH Urine 5.5 (5.0-8.5)
[2024-10-29 18:52] LABS: Bacteria Urine Few; Squamous Epithelial Cell Urine Few (None-Few)
== END 2024-10-29 17:22 | disposition home or self-care (01) ==
LOC: NPINS 17:21
PROVIDERS: PCP Family Medicine; Visit Provider Family Medicine
DX: R41.82 Altered mental status, unspecified (principal); R53.83 Other fatigue
CPT/HCPCS: 81001; 87086

== ENCOUNTER 2024-11-16 11:51 | Outpatient (CLI) | payer MEDICARE, SELFPAY | END 2024-11-16 11:52 | disposition home or self-care (01) | LOC: AMB 11-18 10:55 | PROVIDERS: PCP Family Medicine; Visit Provider Internal Medicine | DX: L08.9 Local infection of the skin and subcutaneous tissue, unspecified (principal) | CPT/HCPCS: A0425; A0427 ==

== ENCOUNTER 2024-11-16 12:09 | Inpatient (IN) | payer MEDICARE, SELFPAY ==
[2024-11-16] VITALS (13 sets, daily range): BP systolic 120–129; BP diastolic 51–67; PULSE 65–75; RESP 14–18; TEMP 36.4–36.8; O2SAT 86–98; BMI 34.7; BMI 32.7
--- OUTSIDE RECORDS SUMMARY | 2024-11-16 12:12 | XMS_ITS | Clinical Summary ---
Author Organization [facility] Address [address] [place] [address] Care Team Providers Care Electric Arc Welder Name Role Phone Birdie Taveras RN Unavailable [phone] Karrie Singer RN Unavailable Clinic, No Pcp Or Primary Care Provider Unavaila ble Allergies Active Allergy Reactions Criticality Noted Date Comments Vancomycin vancomycin infusion reaction (cutaneous flushing/non-allergic reaction) Medium 05/26/2018 Red Man Syndrome Encounters Date Type Department Care Team Description 11/14/2024 8:30 AM CDT - 11/14/2024 11:59 PM CDT Hospital Encounter [facility] [address] [place] [address] Pablo Vo [facility] Acute pulmonary embolus (HC); Acute embolism and thombos of deep vein of low extr, bi (HC) 10/28/2024 Lab Requisition [facility] [phone] Carmenza Quiroz NP 08/29/2024 Lab Requisition [facility] [phone] Carmenza Quiroz NP 08/25/2024 Lab Requisition [facility] [phone] Carmenza Quiroz NP from Last 3 Months Social History Tobacco Use Types Packs/Day Years Used Date Smoking Tobacco: Never Assessed Sex and Gender Information Value Date Recorded Sex Assigned at Not on file Legal Sex Male 1:19 PM CDT Gender Identity Not on file Sexual Orientation Not on file Plan of Treatment Upcoming Encounters Date Type Department Care Team (Late st Contact Info) Description 02/05/2025 9:30 AM CDT Office Visit [facility] [address] [place] [address] Markel Schultz MD [address] [place] [address] 02/06/2025 9:00 AM CDT Appointment [facility] [address] [place] [address] Procedures Procedure Name Priority Date/Time Associated Diagnosis Comments CT CHEST PE STUDY Routine 11/14/2024 9:0 6 AM CDT Acute pulmonary embolus (HC) 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, bi (HC) SCAN-RADIOLOGY REPORT 11/14/2024 12:00 AM CDT CBC WITH AUTO DIFFERENTIAL Routine 10/29/2024 7:37 AM CDT Other fatigue Type 2 diabetes mellitus without complications (HC) BASIC METABOLIC PANEL Routine 10/29/2024 7:37 AM CDT Other fatigue Type 2 diabetes mellitus without complications (HC) HEMOGLOBIN A1C Routine 10/29/2024 7:37 AM CDT Other fatigue Type 2 diabetes mellitus without complications (HC) CBC WITH AUTO DIFFERENTIAL Routine 10/29/2024 7:37 AM CDT Other fatigue Type 2 diabetes mellitus without complications (HC) CBC WITH AUTO DIFFERENTIAL Routine 08/27/2024 8:35 AM OUTPATIENT PSYCHIATRIST Cholecystitis, unspecified BASIC METABOLIC PANEL Routine 08/27/2024 8:35 AM OUTPATIENT PSYCHIATRIST Cholecystitis, unspecified CBC WITH AUTO DIFFERENTIAL Routine 08/27/2024 8:35 AM OUTPATIENT PSYCHIATRIST Cholecystitis, unspecified from Last 3 Months Results * CT CHEST PE STUDY (11/14/2024 9:06 AM CDT) Anatomical Region Laterality Modality CHEST, THORAX, HEART Computed To mography Pablo Vo [facility] CT Fin al Result * SCAN-RADIOLOGY REPORT (11/14/2024 12:00 AM CDT) Anatomical Region Laterality Modality Computed Tomogra phy us Scanner OTHER Final Result * (ABNORMAL) CBC WITH AUTO DIFFERENTIAL (10/29/2024 7:37 AM CDT) Only the most recent of2 resultswithin the time period is included. WHITE BLOOD COUNT 8.2 4.5 - 11.0 thou/cu mm 10/29/2024 8:38 AM [facility] RED BLOOD COUNT 4.44 4.30 - 5.90 mil/cu mm 10/29/2024 8:38 AM [facility] HEMOGLOBIN 11.7(L) 13.5 - 17.5 g/dL 10/29/2024 8:38 AM [facility] HEMATOCRIT 39.1 37.0 - 53.0 % 10/29/2024 8:38 AM [facility] MCV 88 80 - 100 fL 10/29/2024 8:38 AM [facility] MCH 26.4 26.0 - 34.0 pg 10/29/2024 8:38 AM [facility] MCHC 29.9(L) 32.0 - 36.0 g/dL 10/29/2024 8:38 AM [facility] RDW 18.5(H) 11.5 - 15.5 % 10/29/2024 8:38 AM [facility] PLATELET COUNT 180 140 - 440 thou/cu mm 10/29/2024 8:38 AM [facility] MPV 9.3 6.5 - 11.0 fL 10/29/2024 8:38 AM [facility] % NEUT 71.0 % 10/29/2024 8:38 AM [facility] % LYMPH 19.9 % 10/29/2024 8:38 AM CDT [facility] % MONO 5.6 % 10/29/2024 8:38 AM CDT [facility] % EOS 3.4 % 10/29/2024 8:38 AM CDT [facility] % BASO 0.1 % 10/29/2024 8:38 AM CDT [facility] ABSOLUTE NEUTROPHILS 5.9 1.7 - 7.0 thou/cu mm 10/29/2024 8:38 AM CDT [facility] ABSOLUTE LYMPHOCYTES 1.6 0.9 - 2.9 thou/cu mm 10/29/2024 8:38 AM CDT [facility] ABSOLUTE MONOCYTES 0.5 <0.9 thou/cu mm 10/29/2024 8:38 AM CDT [facility] ABSOLUTE EOSINOPHILS 0.3 <0.5 thou/cu mm 10/29/2024 8:38 AM CDT [facility] ABSOLUTE BASOPHILS 0.0 <0.3 thou/cu mm 10/29/2024 8:38 AM CDT [facility] Blood BLOOD SPECIMEN / Unknown Butterfly / Unknown 10/29/2024 7:37 AM CDT 10/29/2024 8:31 AM CDT us Carmenza Quiroz NP HEMATOLOGY Final Resul t [facility] [address] [place] [phone] * (ABNORMAL) HEMOGLOBIN A1C (10/29/2024 7:37 AM CDT) HEMOGLOBIN A1C SCREENING 7.4(H) <=6.4 % 10/29/2024 8:39 AM CDT [facility] Blood BLOOD SPECIMEN / Unknown Butterfly / Unknown 10/29/2024 7:37 AM CDT 10/29/2024 8:31 AM CDT Narrative [facility] - 10/29/2024 8:39 AM CDT (<5.7%) Normal (5.7% to 6.4%) Indicates prediabetes (>=6.5%) Confirms diabetes Falsely low levels may be seen with: Recent Transfusion, Recent Significant Blood Loss, Hemolytic Diseases, or Falsely elevated levels may be seen with: Untreated Anemias, Splenectomy us Carmenza Quiroz GEOPHYSICAL PROSPECTING PERMIT AGENT CHEMISTRY Final Resul t [facility] [address] [place] [address] * (ABNORMAL) BASIC METABOLIC PANEL (10/29/2024 7:37 AM CDT) Only the most recent of2 resultswithin the time period is included. SODIUM 139 136 - 145 mmol/L 10/29/2024 8:57 AM [facility] POTASSIUM 4.3 3.5 - 5.1 mmol/L 10/29/2024 8:57 AM [facility] CHLORIDE 101 98 - 107 mmol/L 10/29/2024 8:57 AM [facility] CO2,TOTAL 26 22 - 29 mmol/L 10/29/2024 8:57 AM [facility] ANION GAP 12 5 - 18 10/29/2024 8:57 AM [facility] GLUCOSE 179(H) 70 - 99 mg/dL 10/29/2024 8:57 AM [facility] CALCIUM 10.0 8.8 - 10.4 mg/dL 10/29/2024 8:57 AM [facility] Comment: Reference ranges for this test were updated on 05/28/2024 to reflect our healthy population more accurately. Reference range changes are not retroactively applied to results, but previous results using the same methodology can be interpreted in the context of the new reference range. BUN 21 8 - 23 mg/dL 10/29/2024 8:57 AM [facility] CREATININE 0.94 0.70 - 1.20 mg/dL 10/29/2024 8:57 AM [facility] BUN/CREAT RATIO 22(H) 10 - 20 8:57 AM [facility] eGFR 85(L) >90 mL/min/1. 73m2 10/29/2024 8:57 AM T [facility] Comment:As of 2021, eG FR is calculated by the CKD-EPI creatinine equation without race adjustment. eGFR can be influenced by muscle mass, exercise, and diet. The reported eGFR is an estimation only and is only applicable if the renal function is stable. Blood BLOOD SPECIMEN / Unknown Butterfly / Unknown 10/29/2024 7:37 AM CDT 10/29/2024 8:31 AM CDT us Carmenza Quiroz NP CHEMISTRY Final Resul t [facility] [address] [place] [address] from Last 3 Months Insurance [employer] [facility] [employer] [facility] Care Teams Electric Arc Welder Relationship Specialty Start Date End Date Clinic, No Pcp Or . PCP - General 07/31/23 Birdie Taveras, RN [address] [facility] [address] [place], [place] [phone] Supervisor Die Casting - [facility] Registered Nurse 07/24/23 Karrie Singer RN [address] [facility] [address] [place], [place] [phone] Supervisor Die Casting - [facility] Registered Nurse 07/24/23
--- NOTE | 2024-11-16 12:13 | ED.GENADULT ---
HPI - General Adult General Date Seen: 11/16/24 Chief complaint: Fever Stated complaint: wound care Time Seen by Provider: 11/16/24 12:12 History of Present Illness HPI narrative: 74 yo M with a complex medical history including multiple sclerosis limiting his ability to transfer, paraplegia (has been living in [address] [place] [address] for the past few years), history of bilateral pulmonary emboli (diagnosed on CT chest/abdomen/pelvis 08/07/2024), cholecystostomy tube (diagnosed on CT chest/abdomen/pelvis done here in the ER 08/07/2024. At that time labs showed white count of 18, CRP of 35. LFTs were normal. He was ultimately transferred to [facility] for cholecystostomy tube since he was also requiring anticoagulation for his pulmonary emboli diagnosed that visit. Still has indwelling cholecystostomy tube. Says that there are plans in the works through the [facility] system to the take his cholecystostomy tube out and do a laparoscopic cholecystectomy. Nothing definitively planned.), he also has a history bilateral lower extremity DVTs (diagnosed by lower extremity ultrasound 08/07/2024), indwelling Eason catheter. He has had trouble with urinary retention for decades because of his MS and prior to coming into the [facility] he had done intermittent self catheterization at home. He has had the Eason in place for the past couple of years. He does get occasional UTIs. He most recently had his Eason catheter changed a few days ago and says that the change went well. Most recent UTI was perhaps a month or so ago. He also has a long-term history of sacral ulcers and apparently has need surgical debridement for an ulcer on the back of his pelvis a few years ago. It does not sound like he currently is working with the [facility] but he may have seen them in the past, he thinks. He sent to the ER today by EMS from his care facility with concern that he has a fever. His nurses from his care facility are concerned that he has an infection on his low sacral/buttock ulcer. He says that the ulcers have been there for the past few weeks but only started to hurt a few days ago. He started to feel feverish in warm yesterday. Today his nurses noted malodorous purulent drainage from the wounds so sent him here to the ER. He says his catheter has been draining normal urine. We note that his cholecystostomy tube is draining brown material. He says that is not normal but he is not sure how many days or weeks it has been draining brown. He does have right upper quadrant pain but is not really worse than his chronic baseline. He is not having any trouble breathing. No chest pain. He thinks he has been taking his anticoagulants. When asked about cough he does say that he has an occasional cough it has been there for a few weeks. That is not really worse than normal lately. Most recent visit to the [facility] was08/20/2024 for wrist pain. During that visit white count had improved to 10.0, hemoglobin 12.1, platelet count 180. Bilirubin was 0.4, AST 28, ALT 29, CRP improved 4.9. BMP was normal. BUN 28, creatinine 0.9. DVT ultrasound of his arm was negative. Related Data Home Medications ?Medication ?Instructions ?Recorded ?Confirmed acetaminophen 500 mg tablet 1,000 mg PO TID 08/07/24 11/16/24 aspirin 81 mg tablet,delayed 81 mg PO DAILY 08/07/24 11/16/24 release calcium carbonate (Zachary-Gest 400 mg PO BID 08/07/24 11/16/24 Antacid) cholecalciferol (vitamin D3) 25 25 mcg PO DAILY 08/07/24 11/16/24 mcg (1,000 unit) tablet (Vitamin D3) furosemide 40 mg tablet 40 mg PO DAILY 08/07/24 11/16/24 lisinopril 40 mg tablet 40 mg PO DAILY 08/07/24 11/16/24 metoprolol succinate 100 mg 100 mg PO DAILY 08/07/24 11/16/24 tablet,extended release 24 hr nifedipine 90 mg tablet,extended 90 mg PO DAILY 08/07/24 11/16/24 release 24 hr pantoprazole 40 mg tablet,delayed 40 mg PO BID 08/07/24 11/16/24 release polyethylene glycol 3350 17 17 g PO DAILY 08/07/24 11/16/24 gram/dose oral powder potassium chloride 10 mEq 10 meq PO BIDWM 08/07/24 11/16/24 capsule,extended release apixaban 5 mg tablet (Eliquis) 5 mg PO BID 11/16/24 11/16/24 atorvastatin 80 mg tablet 80 mg PO HS 11/16/24 11/16/24 bacitracin 500 unit/gram topical 1 applic topical BID 11/16/24 11/16/24 ointment baclofen 10 mg tablet 10 mg PO BID 11/16/24 11/16/24 bisacodyl 10 mg rectal suppository 10 mg NC DAILY PRN 11/16/24 11/16/24 diclofenac sodium 1 % topical gel 2 g topical BID PRN 11/16/24 11/16/24 furosemide 20 mg tablet 20 mg PO QPM 11/16/24 11/16/24 latanoprost 0.005 % eye drops 1 drp ophthalmic (eye) HS 11/16/24 11/16/24 ondansetron HCl 4 mg tablet 4 mg PO Q6H PRN 11/16/24 11/16/24 polyethylene glycol 3350 17 gram 17 g PO DAILY PRN 11/16/24 11/16/24 oral powder packet (Gavilax) prednisone 20 mg tablet 60 mg PO DAILY 11/16/24 11/16/24 sennosides 8.6 mg-docusate sodium 2 tab-cap PO DAILY 11/16/24 11/16/24 50 mg tablet (Senna Plus) sodium hypochlorite 0.057 % 1 applic topical Q8H 11/16/24 11/16/24 irrigation solution (Anasept) Allergies Allergy/AdvReac Type Severity Reaction Status Date / Time Haemophilus B polysaccharide Allergy Unknown Verified 08/07/24 14:59 conj w vancomycin Allergy Unknown Verified 08/07/24 14:59 PFSH PFSH Medical History (Updated 11/16/24 @ 17:11 by Rodolfo James MD) Hyperuricemia ?E79.0 - Hyperuricemia without signs of inflammatory arthritis and tophaceous disease (ICD-10) Elevated blood sugar ?R73.9 - Hyperglycemia, unspecified (ICD-10) Hyperlipidemia ?E78.5 - Hyperlipidemia, unspecified (ICD-10) Hypertension ?I10 - Essential (primary) hypertension (ICD-10) Coronary artery disease ?I25.10 - Atherosclerotic heart disease of [place]alton coronary artery without angina pectoris (ICD-10) Fracture, intertrochanteric, right femur ?S72.141A - Displaced intertrochanteric fracture of right femur, initial encounter for closed fracture (ICD-10) Sleep apnea ?G47.30 - Sleep apnea, unspecified (ICD-10) Eason catheter in place ?Z97.8 - Presence of other specified devices (ICD-10) Neurogenic bladder ?N31.9 - Neuromuscular dysfunction of bladder, unspecified (ICD-10) Obesity ?E66.9 - Obesity, unspecified (ICD-10) Multiple sclerosis ?G35 - Multiple sclerosis (ICD-10) Surgical History (Updated 11/16/24 @ 16:57 by Rodolfo James MD) H/O insertion of cholecystostomy tube ?Z98.890 - Other specified postprocedural states (ICD-10) Family History (Updated 11/16/24 @ 16:58 by Rodolfo James MD) Father Coronary artery disease High blood pressure High cholesterol Sleep apnea Social History (Updated 11/16/24 @ 16:59 by Rodolfo James MD) Narrative: Resident of [facility]. Daughter Malika is healthcare power of city attorney. Code status is DNR. Remote history of smoking What is your current living situation?: I presently have a place to live Problems where you live: no known problems Problems where you live details: none In the past 12 months, utilities in danger of being shut off: no In past 12 months, lack of transportation kept you from medical appts, meetings, work, or getting things needed for daily living: unable to answer In the past 12 mos, have been you worried that your food would run out before you had money to buy more?: unable to answer In the past 12 mos, the food you bought just didn't last and you didn't have money to buy more?: unable to answer Highest level of school completed/degree received: 12th grade, no diploma Smoking Status: Former smoker What tobacco products do you use: cigarettes Smoking quit date/years: <= 15 years ago Do you use any of these nicotine containing products: None Second hand tobacco smoke exposure: No How often do you have a drink containing alcohol: never AUDIT-C Alcohol total score: 0 Non-prescribed substance use: denies use Caffeine: Yes How often does anyone, including family, friends and others, physically hurt you: never How often does anyone, including family, friends and others, insult or talk down to you: never How often does anyone, including family, friends and others, threaten you with harm: never How often does anyone, including family, friends and others, scream or curse at you: never service: No Exam Narrative: Exam Narrative: Constitutional: Appears well-developed and well-nourished. Alert. Conversant and is able to give a pretty reliable history. He talks slowly, but answers questions appropriately.. Non toxic. HENT: Head: Atraumatic. Nose: Nose normal. Mouth/Throat: Oral mucosa is clear and moist. no trismus. Pharynx normal. Tonsils symmetric. No tonsillar enlargement, erythema, or exudate. Eyes: Conjunctivae normal. EOM normal. Pupils equal, round, and reactive to light. No scleral icterus. Neck: Normal range of motion. Neck supple. No tracheal deviation present. No JVD Cardiovascular: Normal rate, regular rhythm. No gallop. No friction rub. No murmur heard. Symmetric radial artery pulses Pulmonary/Chest: Effort normal. No stridor. No respiratory distress. No wheezes. No rales. No rhonchi . No tenderness. Abdominal: Soft. Bowel sounds normal. No distension. No mass. Right upper quadrant tenderness. No rebound. No guarding. No Griffith sign. Cholecystostomy tube present. The skin around the tube looks good. Dressing is in place over it. In the cholecystostomy bag there is about 50 or 100 mL of brownish liquid with a small amount of sediment. : Eason catheter in place. There is dark yellow urine without sediment or blood in the Eason catheter tubing and bag. Musculoskeletal: RUE: Normal range of motion. No tenderness. No deformity LUE: Normal range of motion. No tenderness. No deformity RLE: Normal range of motion. No edema. No tenderness. No deformity LLE: Normal range of motion. No edema. No tenderness. No deformity Rectal/skin: He has rolled onto his right side for posterior exam. Nurses are present as plastic boat patcher. He has multiple dressings in place on his sacrum which were removed for exam. He has scars on his right upper sacrum/iliac crest from old wound to the does not look to be open or infected at this time. He has a small 1 or 2 cm wound that looks into the dermis on the left sacrum. This looks to be noninfected. He has a very small area of skin breakdown on the right lower buttock essentially in the skin crease between the buttock and the top of the thigh. Does not appear to be infected. Involve the epidermis but not through the dermis. He has a fairly large irregularly shaped 4 x 6 cm wound on the lower border of the left buttock that starts on the bottom of the buttock and extends proximally ending just on the back of the perineum. There is a dark brown eschar at the bottom. The edges do appear to be irritated and red. There is not currently any purulent drainage and nothing that we would be able to swab for wound culture. However the wound is malodorous and smells as if it is infected. There is a rim of erythema around that left lower buttock wound. There is no palpable fluctuance. No palpable crepitus. Inspection of the proximal perineum looks good. Gluteal cleft and external rectum looked good. No signs of perirectal ulcer. Neurological: Alert and oriented to person, place, and time. Baseline strength. He is not able to sit up on his own or walk because of his baseline MS. CN II-VII intact. No sensory deficit. GCS eye subscore is 4. GCS verbal subscore is 5. GCS motor subscore is 6. Normal coordination Skin: Skin is warm and dry. No rash noted. No pallor. Normal capillary refill. Psychiatric: Normal mood. Normal affect. Const: Vital Signs, click to edit/add: Vital Signs - 24 hr 11/16/24 12:13 11/16/24 14:09 11/16/24 14:13 Temperature 97.6 F 97.9 F Pulse Rate Pulse Rate [Pulse Oximeter] 71 70 Respiratory Rate 18 14 Blood Pressure [Ri ght Arm] Blood Pressure [Ri ght Upper Arm] 127/51 L 121/61 Pulse Oximetry 94 86 L 93 Oxygen Delivery Me thod Room Air Room Air Nasal Cannula Oxygen Flow Rate 2 11/16/24 14:17 11/16/24 14:21 11/16/24 14:30 Temperature Pulse Rate 65 72 Pulse Rate [Pulse Oximeter] Respiratory Rate Blood Pressure [Ri ght Arm] Blood Pressure [Ri ght Upper Arm] Pulse Oximetry 92 93 98 Oxygen Delivery Me thod Nasal Cannula Oxygen Flow Rate 2 11/16/24 14:45 11/16/24 15:00 11/16/24 15:15 Temperature Pulse Rate 71 75 75 Pulse Rate [Pulse Oximeter] Respiratory Rate Blood Pressure [Ri ght Arm] Blood Pressure [Ri ght Upper Arm] Pulse Oximetry 88 95 96 Oxygen Delivery Me thod Oxygen Flow Rate 11/16/24 16:17 11/16/24 16:17 Temperature 97.7 F Pulse Rate Pulse Rate [Pulse Oximeter] Respiratory Rate 18 18 Blood Pressure [Ri ght Arm] 120/67 Blood Pressure [Ri t Upper Arm] Pulse Oximetry 94 94 Oxygen Delivery Me thod Room Air Room Air Oxygen Flow Rate Course Vital Signs Vital signs: Initial Vital Signs Temperature 97.6 F 11/16/24 12:13 Temperature Source Temporal Artery Scan 11/16/24 12:13 Pulse Rate 71 11/16/24 12:13 Pulse Rhythm Regular 11/16/24 12:13 Respiratory Rate 18 11/16/24 12:13 Blood Pressure 127/51 L 11/16/24 12:13 Blood Pressure Mean 76 11/16/24 12:13 Blood Pressure Position Sitting 11/16/24 12:13 Pulse Oximetry 94 11/16/24 12:13 Oxygen Delivery Method Room Air 11/16/24 12:13 Vital Signs Temperature 97.6 F 11/16/24 12:13 Pulse Rate 71 11/16/24 12:13 Respiratory Rate 18 11/16/24 12:13 Blood Pressure 127/51 L 11/16/24 12:13 Pulse Oximetry 94 11/16/24 12:13 Oxygen Delivery Method Room Air 11/16/24 12:13 Temperature 97.7 F 11/16/24 16:17 Pulse Rate 75 11/16/24 15:15 Respiratory Rate 18 11/16/24 16:17 Blood Pressure 120/67 11/16/24 16:17 Pulse Oximetry 94 11/16/24 16:17 Oxygen Delivery Method Room Air 11/16/24 16:17 Oxygen Flow Rate 2 11/16/24 14:17 Medications Administered Medications: Generic Name Dose Route Start Last Admin Trade Name Freq PRN Reason Stop Dose Admin Diphenhydramine HCl 25 mg 11/16/24 16:18 11/16/24 17:28 Diphenhydramine 25 Mg Capsule PO 25 mg Q12H BERONICA Administration Famotidine 20 mg 11/16/24 17:30 11/16/24 17:53 Famotidine 20 Mg Tablet PO Not Given Q12H BERONICA Furosemide 20 mg 11/16/24 18:00 11/16/24 17:29 Furosemide 20 Mg Tablet PO 20 mg QPM BERONICA Administration Insulin Aspart 0 unit 11/16/24 17:30 11/16/24 18:04 Insulin Aspart 100 Unit/Ml SUBCUT 4 unit ACHS BERONICA Administration Protocol Potassium Chloride 10 meq 11/16/24 18:00 11/16/24 17:29 Potassium Chloride 10 Meq Capsule Er PO 10 meq BIDWM BERONICA Administration Discontinued Medications Generic Name Dose Route Start Last Admin Trade Name Fior PRN Reason Stop Dose Admin Famotidine 20 mg 11/16/24 21:00 11/16/24 17:28 Famotidine 20 Mg Tablet PO 20 mg Q12H BERONICA Administration Meropenem 1 gm/ Sodium 100 mls @ 200 mls/hr 11/16/24 14:50 11/16/24 15:45 Chloride IVPB 11/16/24 14:51 Infused ONCE ONE Infusion Vancomycin/PEG/NADA/Lysine/Water 2 gm in 400 mls @ 200 mls/hr 11/16/24 16:18 11/16/24 18:04 Vancomycin 2 Gm/400 Ml IVPB 11/16/24 18:17 200 mls/hr ONCE ONE Administration Protocol Medical Decision Making [facility] Narrative Medical decision making narrative: The very pleasant 74-year-old gentleman with a complex past medical history who is presenting to the ER today with concern for fever and suspicion that he may have an infected left buttock pressure ulcer. Clinical evaluation does show signs of pressure ulcer there with some running erythema. I suspect that this probably is infected. Will start on IV antibiotics. Meropenem given potential for resistant pathogens. Unfortunately he is allergic to vancomycin. On my exam we do not see any evidence for associated skin abscess or necrotizing infection that would require emergent surgical drainage. Laboratory workup shows normal white count but a 89% neutrophil predominance. CRP is abnormal at 23.7.. He has fever at his care center today but is not febrile here. He is not tachycardic or hypotensive. At this point I do think his labs correlate with infection but fortunately no evidence for sepsis physiology or shock. Differential for fever is broad. He does have a history of cholecystitis with a chronic indwelling cholecystostomy tube that has been draining brown liquid recently. Unsure how long his cholecystostomy drainage has been brown. He does have right upper quadrant tenderness but he says that that sort of chronic. Laboratory workup and CT are reassuring. LFTs normal. CT scan shows that his cholecystostomy is in place and there is no real signs of active severe infection. He also has an indwelling Eason catheter that was changed a few days ago. He has a history of UTIs, it sounds like fairly infrequent, and most recently perhaps a month ago. Urinalysis today is abnormal suggesting possible UTI. In review of old records I see that a urine culture from October 29 that grew Klebsiella and Proteus. Klebsiella had for multiple resistances but was sensitive to Cipro, ertapenem, Levaquin, meropenem and Bactrim. Proteus had some resistance but was sensitive to cephalosporins as well as carbapenems, fluoroquinolones. The he also has a somewhat chronic sounding cough. Chest x-ray is negative for pneumonia. X-ray also negative for signs of heart failure.. COVID/influenza swab negative. He is not hypoxic. No wheezing or bronchospasm. He has a history of bilateral pulmonary emboli and is currently on Eliquis. Oxygen saturations are normal. Heart rate is normal. He did have transient hypoxia when he fell asleep here in the ER but it sounds like he has sleep apnea and does not currently have his CPAP with him. No evidence for recurrent PE At this point I suspect his fever is probably related to his infected skin ulcer but could also potentially be related to urine. Given medical complexity and need for surgery and Wound consult will admit him to the hospital. However fortunately this point there is not any evidence for sepsis or septic shock. Does not need ICU or vasopressors. Discussed with Dr. James, hospitalist, who graciously agrees to admit. Please see hospitalist notes for further details about admission status and further workup. Lab Data Labs: Lab Results 11/16/24 11/16/24 11/16/24 Range/Units 13:00 13:06 13:40 WBC 7.58 (4.50-11.00) K/uL RBC 4.11 L (4.30-5.90) m/uL Hgb 11.0 L (13.5-17.5) gm/dL Hct 35.1 L (37.0-53.0) % MCV 85 (80-100) fL MCH 27 (26-34) pg MCHC 31 L (32-36) gm/dL RDW Coeff of Rey 17.5 H (11.5-15.5) % Plt Count 197 (140-440) K/uL Neut % (Auto) 89.4 H (42.0-72.0) % Lymph % (Auto) 7.4 L (20-44) % Petroleum % (Auto) 2.4 (0.0-11.0) % Eos % (Auto) 0.1 (0.0-7.0) % Baso % (Auto) 0.0 (0.0-3.0) % Neut # (Auto) 6.80 (1.7-7.0) K/uL Lymph # (Auto) 0.60 L (0.90-2.90) K/uL Petroleum # (Auto) 0.20 (0.00-0.90) K/UL Eos # (Auto) 0.01 (0.00-0.50) K/uL Baso # (Auto) 0.00 (0.00-0.30) K/uL Abs Immat Gran (auto) 0.05 (0.00-0.30) K/uL Imm/Tot Granulo (auto) 0.7 % Sodium 134 L (135-149) mmol/L Potassium 4.4 (3.6-5.1) mmol/L Chloride 100 (96-114) mmol/L Carbon Dioxide 25 (20-32) mmol/L Anion Gap 9 (7-15) mEq/L BUN 21 (7-30) mg/dL Creatinine 1.0 (0.5-1.5) mg/dL Estimated Creat Clear 75.35 Estimated GFR 79 ml/min Glucose 274 H (60-115) mg/dL Hemoglobin A1c 7.6 H (0-5.6) % Lactate 1.5 (0.5-1.9) mmol/L Calcium 9.1 (8.4-10.6) mg/dL Total Bilirubin 0.7 (0.1-1.5) mg/dL AST 33 (12-35) U/L ALT 32 (4-50) U/L Alkaline Phosphatase 98 (40-150) U/L C-Reactive Protein 23.7 H (0.5-1.0) mg/dL Total Protein 7.0 (6.0-8.3) g/dL Albumin 3.7 (3.3-5.0) g/dL Lipase 36 (23-300) U/L SARS-CoV-2 (PCR) Negative SARS-CoV-2 (Negative) Influenza Type A (PCR) Negative PCR FLU A (Negative) Influenza Type B (PCR) Negative PCR FLU B (Negative) Lab Acknowledgement Test Added POC Creatinine 1.2 (0.6-1.3) mg/dl Imaging Data Chest x-ray: Attestation: I have reviewed the pertinent imaging results. My impression: No acute infiltrates-per Dr. Matthew. Radiologist's impression: IMPRESSION: Negative chest. CT scan - abdomen: Attestation: I have reviewed the pertinent imaging results. Radiologist's impression: IMPRESSION: 1. No acute findings in the abdomen or pelvis. 2. The gallbladder is decompressed by a percutaneous cholecystostomy tube. There is mild pericholecystic fat stranding. 3. Two indeterminate hepatic lesions are similar since and more fully characterized on the 08/30/2024 MRI. 4. Similar mildly enlarged right upper abdominal quadrant lymph nodes. 5. There is a 8.2 centimeter lobulated lesion with central mostly fat attenuation, peripheral soft tissue attenuation, and multiple septations in the subcutaneous fat of the left paramidline posterior pelvis which is grossly similar since a 08/07/2024 CT of the abdomen, possibly representing fat necrosis or postoperative change. Correlate with clinical history. 6. Several additional chronic and incidental findings are detailed above. ECG Data Attestation: I personally reviewed and interpreted this ECG as follows: Interpretation: Normal sinus rhythm with first-degree AV block Rate: 71 NC: 222 QRS axis: Normal ST segment/T wave: No ST segment elevation or depression QTc: 412 Discharge Plan Discharge Clinical Impression: Decubitus ulcer of sacral area, Cellulitis, Acute UTI Patient Disposition: Admitted As Observation
--- OUTSIDE RECORDS SUMMARY | 2024-11-16 12:13 | XMS_ITS | Encounter Summary ---
Author Organization [facility] Address [address] [place] [address] Care Team Providers Care Team Psychologist Name Role Phone [place] Reyes M.D. Primary Care Provider [phone] Reason for Referral * Outpatient (Routine) - Closed Specialty Diagnoses / Procedures Referred By Contac t Referred To Contact Diagnoses Cholecystitis Procedures ECG 12 Lead Roland Benson D.O. [address] [place] [address] Phone: tel: fax: [facility] Referral ID Status Reason Start Date Expiration Date Visits Re quested Visits Authorized [id number] Closed 09/20/2024 12/21/2025 1 1 Reason for Visit * Outpatient (Routine) - Closed Specialty Diagnoses / Procedures Referred By Contac t Referred To Contact Diagnoses Cholecystitis Procedures ECG 12 Lead Roland Benson D.OAmparo [address] [place] [address] Phone: tel: fax: [facility] Referral ID Status Reason Start Date Expiration Date Visits Re quested Visits Authorized [id number] Closed 09/20/2024 12/21/2025 1 1 Encounter Details Date Type Department Care Team (Latest Contact Info) Description 11/05/2024 7:35 AM CDT - 11/05/2024 9:23 AM CDT Hospital Encounter Department of Laboratory Medicine in [place], [place] [address] [place] [address] Roland Benson D.O. [address] [place] [address] Cholecystitis Discharge Disposition: Home or Self Care Social History Tobacco Use Types Packs/Day Years Used Date Smoking Tobacco: Former Cigarettes Q uit: 1977 Passive Smoke Exposure: Never Alcohol Use Standard Drinks/Week Comments Not Currently 1 (1 standard drink = 0.6 oz pur e alcohol) [facility] Utilities Answer Date Recorded In the past 12 months has e [employer], gas, oil, or water [employer] threatened to shut off services in your [...] often do you attend chur ch or pentecostalism services? Never 10/18/2022 Do you belong to any clubs o r organizations such as episcopalian groups, unions, fraternal or athletic groups, or [...] Answer Date Recorded PHQ-2 Score 0 02/07/2024 [facility] - Occupational Stress Questionnaire Answer [...] your living situation today? I have a [facility] place to live 08/08/2024 Education Answer Date Recorded What is the highest level of school you have completed or the highest degree you have received? 12th grade 10/18/2022 Sex and Gender Information Value Date Recorded Sex Assigned at Male 06/26/2018 4:20 PM MOTOR POOL CLERK Legal Sex Male 3:33 AM MOTOR POOL CLERK Gender Identity Not on file Sexual Orientation [...] AM CDT Appointment Department of Radiology in [place], [place] [address], [place] [address] Pablo Vo M.D. [address] [place] [phone] 02/11/2025 2:40 PM CDT Office Visit Department of Oncology in [place], [place] [address], [place] [address] Pablo Vo M.D. [address] [place] [phone] documented as of this encounter Procedures Procedure Name Priority Date/Time Associated Diagnosis Comments ECG Routine 11/05/2024 7:43 AM CDT Cholecystitis documented in this encounter Results * ECG 12 Lead (11/05/2024 7:43 AM CDT) Ventricular Rate ECG/Min 62 BPM MUSE LA Interval 210 ms MUSE QRSD Interval 102 ms MUSE QT Interval 396 ms MUSE QTC Interval 401 ms MUSE P [place] 52 degrees MUSE R [place] -16 degrees MUSE T Wave [place] 46 degrees MUSE 11/05/2024 7:43 AM CDT [...] documented as of this encounter Care Teams Team Psychologist Relationship Specialty Start Date End Date [place] Reyes M.D. [address] [place] [phone] PCP - General 03/14/24 documented as of this encounter
--- OUTSIDE RECORDS SUMMARY | 2024-11-16 12:13 | XMS_ITS | Encounter Summary ---
Author Organization [facility] Address [address] [place] [address] Care Team Providers Care Check And Transfer Beader Name Role Phone [place] Reyes M.D. 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 [address] [place] [address] Phone: tel: fax: [facility] Referral ID Status Reason Start Date Expiration Date Visits Re quested Visits Authorized [id number] Closed 11/05/2024 02/05/2026 1 1 Reason for Visit * Cardiovascular-Diagnostic (Routine) - Closed Specialty Diagnoses / Procedures Referred By Jono donohue Referred To Contact Diagnoses Cholecystitis Preoperative Examination Cardiovascular Hyperlipidemia On Treatment Atherosclerotic Heart Disease Of [place] Coronary Artery Without Angina Pectoris Procedures Echo Stress Thaddeus Li M.D. [address] [place] [address] Phone: tel: fax: [facility] Referral ID Status Reason Start Date Expiration Date Visits Re quested Visits Authorized [id number] Closed 11/05/2024 02/05/2026 1 1 Encounter Details Date Type Department Care Team (Latest Contact Info) Description 11/06/2024 8:22 AM CDT - 11/06/2024 11:59 PM CDT Hospital Encounter Department of Cardiovascular Diseases in [place], [place] [address] [place] [address] Thaddeus Li M.D. [address] [place] [address] Cholecystitis; Preoperative Examination Cardiovascular; Hyperlipidemia On Treatment; Atherosclerotic Heart Disease Of [place] Coronary Artery Without Angina Pectoris Discharge Disposition: Home or Self Care Social History Tobacco Use Types Packs/Day Years Used Date Smoking Tobacco: Former Cigarettes Q uit: 1977 Passive Smoke Exposure: Never Alcohol Use Standard Drinks/Week Comments Not Currently 1 (1 standard drink = 0.6 oz pur e alcohol) [facility] [employer] Answer Date Recorded In the past 12 months has e [employer], gas, oil, or water [employer] threatened to shut off services in your [...] How often do you attend chur or mandaeism services? Never 10/18/2022 Do you belong to any clubs o r organizations such as denominational groups, unions, fraternal or athletic groups, or [...] Answer Date Recorded PHQ-2 Score 0 02/07/2024 [facility] of Occupat ional Health [...] your living situation today? I have a [facility] place to live 08/08/2024 Education Answer Date Recorded What is the highest level of school you have completed or the highest degree you have received? 12th grade 10/18/2022 Sex and Gender Information Value Date Recorded Sex Assigned at Male 06/26/2018 4:20 PM PATENT LEGAL ASSISTANT Legal Sex Male 3:33 AM PATENT LEGAL ASSISTANT Gender Identity Not on file Sexual Orientation [...] AM CDT Appointment Department of Radiology in [place], [place] [address] [phone] Pablo Vo M.D. [address] [place] [phone] 02/11/2025 2:40 PM CDT Office Visit Department of Oncology in [place], [place] [address], [place] [address] Pablo Vo M.D. [address] [place] [phone] documented as of this encounter Procedures Procedure Name Priority Date/Time Associated Diagnosis Comments ECHO STRESS 2D WITH COLOR, DOPPLER AND CONTRAST Routine 11/06/2024 10:03 AM CDT Cholecystitis Preoperative Examination Cardiovascular Hyperlipidemia On Treatment Atherosclerotic Heart Disease Of [place] Coronary Artery Without Angina Pectoris documented in [...] RV 4-Chamber Length 80 MC CV EIMS RA Pressure 5 MC CV EIMS LA Volume Index [...] per Echocardiography Contrast Administration Protocol Reference Document [id number] Rev 11/04/2021. Patient met an inclusion criterion [...] administered per EchocardiographyContrast Administration Protocol Reference Document [id number] Rev11/04/2021. Patient met an inclusion criterion and did not havecontraindications in screening sections. For the complete report, see the Order-Level Documents. Thaddeus Li M.D. CV ECHO PROCEDURES Nieves rincon Result documented in this encounter Visit Diagnoses Diagnosis Cholecystitis Preoperative Examination Cardiovascular Hyperlipidemia On Treatment Atherosclerotic Heart Disease Of [place] Coronary Artery Without Angina Pectoris documented in [...] mg (Dobutrex) 1-100 mg, intravenous, Once, On Mon11/06/24 at 0915, For 1 dose, Intraprocedure - [...] documented as of this encounter Care Teams Check And Transfer Beader Relationship Specialty Start Date End Date [place] Reyes M.D. [address] [place] [address] PCP - General 03/14/24 documented as of this encounter
--- OUTSIDE RECORDS SUMMARY | 2024-11-16 12:13 | XMS_ITS | Encounter Summary ---
Author Organization [facility] Address [address] [place] [address] Care Team Providers Care Paper Plate Machine Tender Name Role Phone [place] Reyes M.D. Primary Care Provider [phone] Reason for Referral * Outpatient (Routine) - Closed Specialty Diagnoses / Procedures Referred By Jono donohue Referred To Contact Cardiovascular Disease Thaddeus Li M.D. [address] [place] [address] Phone: tel: fax: [facility] Referral ID Status Reason Start Date Expiration Date Visits Re quested Visits Authorized [id number] Closed 11/05/2024 05/07/2026 1 1 * Cardiovascular-Diagnostic (Routine) - Closed Specialty Diagnoses / Procedures Referred By Jono donohue Referred To Contact Diagnoses Cholecystitis Preoperative Examination Cardiovascular Hyperlipidemia On Treatment Atherosclerotic Heart Disease Of [place] Coronary Artery Without Angina Pectoris Procedures Echo Stress Thaddeus Li M.D. [address] [place] [address] Phone: tel: fax: [facility] Referral ID Status Reason Start Date Expiration Date Visits Re quested Visits Authorized [id number] Closed 11/05/2024 02/05/2026 1 1 Reason for Visit * Reason Comments Consult * Outpatient (Routine) - Closed Specialty Diagnoses / Procedures Referred By Contact Referred To Contact Cardiovascular Diseases / Cardiovascular Disease Diagnoses Cholecystitis Roland Benson D.O. [address] [place] [address] Phone: tel: fax: [facility] Region Referral ID Status Reason Start Date Expiration Date Visits Re quested Visits Authorized [id number] Closed 09/20/2024 03/22/2026 1 1 Encounter Details Date Type Department Care Team (Latest Contact Info) Description 11/05/2024 8:45 AM CDT Comprehensive Visit Department of Cardiovascular Diseases in [place], [place] [address] [place] [phone] Thaddeus Li M.D. [address] [place] [phone] Preoperative Examination Cardiovascular (Primary Dx); Cholecystitis; Hyperlipidemia On Treatment; Atherosclerotic Heart Disease Of [place] Coronary Artery Without Angina Pectoris Social History Tobacco Use Types Packs/Day Years Used Date Smoking Tobacco: Former Cigarettes Q uit: 1977 Passive Smoke Exposure: Never Tobacco Cessation:Counseling Given: Not Answered Alcohol Use Standard Drinks/Week Comments Not Currently 1 (1 standard drink = 0.6 oz pur e alcohol) [facility] Utilities Answer Date Recorded In the past 12 months has [facility] [employer], gas, oil, or water [employer] threatened to shut off services in your [...] any clubs o r organizations such as anabaptism groups, unions, fraternal or athletic groups, or [...] Answer Date Recorded PHQ-2 Score 0 02/07/2024 [facility] - Occupational Stress Questionnaire Answer Date [...] your living situation today? I have a [facility] place to live 11/08/2024 Education Answer Date Recorded What is the highest level of school you have completed or the highest degree you have received? 12th grade 10/18/2022 Sex and Gender Information Value Date Recorded Sex Assigned at Male 06/26/2018 4:20 PM BIOMED TECH Legal Sex Male 3:33 AM BIOMED TECH Gender Identity Not on file Sexual Orientation [...] Body Mass Index 34.17 09/15/2024 3:21 PM BIOMED TECH documented in this encounter Patient Instructions * Patient Instructions* Thaddeus Li M.D. - 11/05/2024 8:45 AM CDT Stress echo in [place] next available Please keep apt with Hematology [...] understand that in the emergency room in [place], a DVT study was positive for a [...] SOCIAL HISTORY Mr. Ramirez currently lives in [facility] in [place], [place]. He has about a 80-[id number]-hqrz smoking history, quitting in 1978. He denies [...] to coordinate a dobutamine stress echocardiogram in [place] next available and then will coordinate a [...] Thaddeus Li M.D. CT CT Job ID: [id number] [1] Current Outpatient Medications: acetaminophen (TylenoL) 500 [...] AM CDT Appointment Department of Radiology in [place], [place] [address] [place] [address] Pablo Vo M.D. [address] [facility] [place] [phone] 02/11/2025 2:40 PM CDT Office Visit Department of Oncology in [place], [place] [address] [facility] [place] [address] Pablo Vo M.D. [address] [place] [phone] Scheduled Referrals Name Type Priority Associated Diagnoses Order Schedule Cardiovascular Disease office visit (clinic) [facility] Region; General Outpatient Referral Routine Expected: [...] per Echocardiography Contrast Administration Protocol Reference Document [id number] Rev 11/04/2021. Patient met an inclusion criterion [...] administered per EchocardiographyContrast Administration Protocol Reference Document [id number] Rev11/04/2021. Patient met an inclusion criterion and [...] Li M.D. LAB BLOOD ADD-ON Final Result [facility] [address] [place] [address], [facility] OWAT [facility] [place] [address] [place] [address] documented in this encounter Visit Diagnoses Diagnosis Preoperative Examination Cardiovascular- Primary Cholecystitis Hyperlipidemia On Treatment Atherosclerotic Heart Disease Of [place] Coronary Artery Without Angina Pectoris Cholecystitis Preoperative Examination Cardiovascular Hyperlipidemia On Treatment Atherosclerotic Heart Disease Of [place] Coronary Artery Without Angina Pectoris documented in this encounter Additional Health Concerns Assessment Noted Time PHQ-9 Depression Total Score: 10 018 11:00 AM CDT documented as of this encounter Care Teams Paper Plate Machine Tender Relationship Specialty Start Date End Date [place] Reyes M.D. [address] [place] [address] PCP - General 03/14/24 documented as of this encounter
--- OUTSIDE RECORDS SUMMARY | 2024-11-16 12:13 | XMS_ITS | Encounter Summary ---
Author Organization [facility] Address [address] [place] [address] Care Team Providers Care Orthopedic Podiatrist Name Role Phone [place] Reyes M.D. Primary Care Provider [phone] Encounter Details Date Type Department Care Team (Late st Contact Info) Description 10/22/2024 Clinical Communication Department of Oncology in [place], [place] [address] [place] [address] Pablo Vo M.D. [address] [place] [address] Social History Tobacco Use Types Packs/Day Years Used Date Smoking Tobacco: Former Cigarettes Q uit: 1977 Passive Smoke Exposure: Never Alcohol Use Standard Drinks/Week Comments Not Currently 1 (1 standard drink = 0.6 oz pur e alcohol) [facility] Utilities Answer Date Recorded In the past 12 months has [employer], gas, oil, or water [employer] threatened to shut off services in your [...] often do you attend chur ch or quaker services? Never 10/18/2022 Do you belong to any clubs o r organizations such as oriental orthodox groups, unions, fraternal or athletic groups, or [...] Answer Date Recorded PHQ-2 Score 0 02/07/2024 [facility] of Occupat ional Health - [...] your living situation today? I have a [facility] place to live 08/08/2024 Education Answer Date Recorded What is the highest level of school you have completed or the highest degree you have received? 12th grade 10/18/2022 Sex and Gender Information Value Date Recorded Sex Assigned at Male 06/26/2018 4:20 PM CONFIDENTIAL SECRETARY Legal Sex Male 3:33 AM CONFIDENTIAL SECRETARY Gender Identity Not on file Sexual Orientation Not on file documented as of this encounter Plan of Treatment Upcoming Encounters Date Type Department Care Team (Late st Contact Info) Description 02/06/2025 9:00 AM CDT Appointment Department of Radiology in [place], [place] [address] [place] [address] Pablo Vo M.D. [address] [place] [phone] 02/11/2025 2:40 PM CDT Office Visit Department of Oncology in [place], [place] [address] [place] [address] Pablo Vo M.D. [address] [facility] [place] [address] documented as of this encounter Visit Diagnoses Not on filedocumented in this encounter Additional Health Concerns Infection Onset Date Last Indicated Resolved Time MDR GNB 10/24/2024 10/24/2024 10/27/2024 6:33 AM CDT Assessment Noted Time PHQ-9 Depression Total Score: 10 018 11:00 AM CDT documented as of this encounter Care Teams Orthopedic Podiatrist Relationship Specialty Start Date End Date [place] Reyes M.D. [address] [place] [address] PCP - General 03/14/24 documented as of this encounter
--- OUTSIDE RECORDS SUMMARY | 2024-11-16 12:13 | XMS_ITS | Encounter Summary ---
Author Organization [facility] Address [address] [place] [address] Care Team Providers Care Director Of Acquisition Marketing Name Role Phone [place] Reyes M.D. Primary Care Provider [phone] Encounter Details Date Type Department Care Team (Latest Contact Info) Description 08/07/2024 Intake [facility] Social History Tobacco Use Types Packs/Day Years Used Date Smoking Tobacco: Former Cigarettes Q uit: 1977 Passive Smoke Exposure: Never Alcohol Use Standard Drinks/Week Comments Not Currently 1 (1 standard drink = 0.6 oz pur e alcohol) [facility] Utilities Answer Date Recorded In the past 12 months has e [employer], gas, oil, or water [employer] threatened to shut off services in your [...] often do you attend chur ch or samaritan services? Never 10/18/2022 Do you belong to [...] Answer Date Recorded PHQ-2 Score 0 02/07/2024 [facility] of Occupat ional Health - Occupational [...] your living situation today? I have a [facility] place to live 08/08/2024 Education Answer Date Recorded What is the highest level of school you have completed or the highest degree you have received? 12th grade 10/18/2022 Sex and Gender Information Value Date Recorded Sex Assigned at Male 06/26/2018 4:20 PM SHEET TAKER Legal Sex Male 3:33 AM SHEET TAKER Gender Identity Not on file Sexual Orientation Not on file documented as of this encounter Plan of Treatment Upcoming Encounters Date Type Department Care Team (Late st Contact Info) Description 02/06/2025 9:00 AM CDT Appointment Department of Radiology in [place], [place] [address] [address] Pablo Vo M.D. [address] [place] [address] 02/11/2025 2:40 PM CDT Office Visit Department of Oncology in [place], [place] [address], [place] [address] Pablo Vo M.D. [address] [place] [address] documented as of this encounter Visit Diagnoses Not on filedocumented in this encounter Additional Health Concerns Infection Onset Date Last Indicated Resolved Time MDR GNB 10/24/2024 10/24/2024 10/27/2024 6:33 AM CDT Assessment Noted Time PHQ-9 Depression Total Score: 10 018 11:00 AM CDT documented as of this encounter Care Teams Director Of Acquisition Marketing Relationship Specialty Start Date End Date [place] Reyes M.D. [address] [place] [address] PCP - General 03/14/24 documented as of this encounter
--- OUTSIDE RECORDS SUMMARY | 2024-11-16 12:13 | XMS_ITS | Encounter Summary ---
Author Organization [facility] Address [address] [place] [address] Care Team Providers Care Senior Controls Analyst Name Role Phone [place] Reyes M.D. Primary Care Provider [phone] Encounter Details Date Type Department Care Team (Latest Contact Info) Description 11/05/2024 9:24 AM CDT - 11/05/2024 11:59 PM CDT Hospital Encounter Department of Laboratory Medicine in [place], [place] [address] [place] [phone] Thaddeus Li M.D. [address] [place] [address] Cholecystitis; Preoperative Examination Cardiovascular; Hyperlipidemia On Treatment; Atherosclerotic Heart Disease Of [place] Coronary Artery Without Angina Pectoris Discharge Disposition: Home or Self Care Social History Tobacco Use Types Packs/Day Years Used Date Smoking Tobacco: Former Cigarettes Q uit: 1977 Passive Smoke Exposure: Never Alcohol Use Standard Drinks/Week Comments Not Currently 1 (1 standard drink = 0.6 oz pur e alcohol) [facility] Utilities Answer Date Recorded In the past 12 months has e [employer], gas, oil, or water [employer] threatened to shut off services in your [...] any clubs o r organizations such as synagogue groups, unions, fraternal or athletic groups, or [...] Answer Date Recorded PHQ-2 Score 0 02/07/2024 [facility] of Occupat ional Health - Occupational Stress [...] your living situation today? I have a [facility] place to live 08/08/2024 Education Answer Date Recorded What is the highest level of school you have completed or the highest degree you have received? 12th grade 10/18/2022 Sex and Gender Information Value Date Recorded Sex Assigned at Male 06/26/2018 4:20 PM WEATHERIZATION DIRECTOR Legal Sex Male 3:33 AM WEATHERIZATION DIRECTOR Gender Identity Not on file Sexual Orientation [...] AM CDT Appointment Department of Radiology in [place], [place] [address], [place] [address] Pablo Vo M.D. [address] [place] [address] 02/11/2025 2:40 PM CDT Office Visit Department of Oncology in [place], [place] [address], [place] [address] Pablo Vo M.D. [address] [place] [address] documented as of this encounter Procedures Procedure Name Priority Date/Time Associated Diagnosis Comments LIPID PANEL, S Routine 11/05/2024 9:32 AM CDT Cholecystitis Preoperative Examination Cardiovascular Hyperlipidemia On Treatment Atherosclerotic Heart Disease Of [place] Coronary Artery Without Angina Pectoris documented in [...] Li M.D. LAB BLOOD ADD-ON Final Result [facility] [address] [place] [address], [place] OW[facility] in [place] [address] [place] [address] documented in this encounter Visit Diagnoses Diagnosis Cholecystitis Preoperative Examination Cardiovascular Hyperlipidemia On Treatment Atherosclerotic Heart Disease Of [place] Coronary Artery Without Angina Pectoris documented in this encounter Additional Health Concerns Assessment Noted Time PHQ-9 Depression Total Score: 10 018 11:00 AM CDT documented as of this encounter Care Teams Senior Controls Analyst Relationship Specialty Start Date End Date [place] Reyes M.D. [address] [place] [address] PCP - General 03/14/24 documented as of this encounter
--- OUTSIDE RECORDS SUMMARY | 2024-11-16 12:13 | XMS_ITS | Encounter Summary ---
Author Organization [facility] Address [address] [place] [address] Care Team Providers Care Nitrating Acid Mixer Name Role Phone Jeff Reyes M.D. Primary Care Provider [phone] Reason for Visit * Reason Onset Date Comments Blanca Tube Follow Up 10/23/2024 Encounter Details Date Type Department Care Team (Latest Contact Info) Description 10/23/2024 Clinical Communication Department of Radiology in [place], [place] [address] [place] [phone] Anuel Nunn M.D. [facility] [place] [phone] Blanca Tube Follow Up Social History Tobacco Use Types Packs/Day Years Used Date Smoking Tobacco: Former Cigarettes Q uit: 1977 Passive Smoke Exposure: Never Alcohol Use Standard Drinks/Week Comments Not Currently 1 (1 standard drink = 0.6 oz pur e alcohol) [facility] Utilities Answer Date Recorded In the [...] often do you attend chur ch or mandaen services? Never 10/18/2022 Do you belong to any clubs o r organizations such as mosque groups, unions, fraternal or athletic groups, or [...] Answer Date Recorded PHQ-2 Score 0 02/07/2024 [facility] [place] of Occupat ional Health - Occupational Stress [...] your living situation today? I have a [facility] place to live 08/08/2024 Education Answer Date Recorded What is the highest level of school you have completed or the highest degree you have received? 12th grade 10/18/2022 Sex and Gender Information Value Date Recorded Sex Assigned at Male 06/26/2018 4:20 PM HOSPITALITY AMBASSADOR Legal Sex Male 3:33 AM HOSPITALITY AMBASSADOR Gender Identity Not on file Sexual Orientation Not on file documented as of this encounter Miscellaneous Notes * Telephone Encounter - Loida Villaseñor R.N. - 10/23/2024 4:15 PM CDT Received return call from Bekah (facility nurse) who reiterates that tube sutures are no longer intact, has slid out a few cm's, has decreased amount in tube (5-25 mL/shift whereas used to be up to 50 mL's), increased nausea, inability to flush. This was communicated to TAYLOR Shore and Dr. Nunn who gave ok to schedule blanca tube change; however, if facility feels symptoms are severe, they can send to ED. This nurse left voicemail for Bekah to inform of this conversation. IR Scheduling also reached out to Bekah to schedule. Electronically signed by: Loida Villaseñor R.N. 10/23/24 4:17 PM CDT * Telephone Encounter - Katiuska Fuentes R.N. - 10/23/2024 3:08 PM CDT Strategic Client Executive reached out to Bekah, college and career counselor from [facility] regarding some concerns she had with patient's blanca tube coming out and not flushing properly. Strategic Client Executive left a VM asking theyphone IR clinic nursing back to come up with a plan. Contact phone number left. Electronically signed by: Katiuska Fuentes R.N. 10/23/24 3:10 PM CDT documented in this encounter Plan of Treatment Upcoming Encounters Date Type Department Care Team (Late st Contact Info) Description 02/06/2025 9:00 AM CDT Appointment Department of Radiology in [place], [place] [address] [phone] Pablo Vo M.D. [address] [place] [phone] 02/11/2025 2:40 PM CDT Office Visit Department of Oncology in [place], [place] [address] [place] [phone] Pablo Vo M.D. [address] [place] [phone] documented as of this encounter Visit Diagnoses Not on filedocumented in this encounter Additional Health Concerns Infection Onset Date Last Indicated Resolved Time MDR GNB 10/24/2024 10/24/2024 10/27/2024 6:33 AM CDT Assessment Noted Time PHQ-9 Depression Total Score: 10 018 11:00 AM CDT documented as of this encounter Care Teams Nitrating Acid Mixer Relationship Specialty Start Date End Date Jeff Reyes M.D. [address] [place] [phone] PCP - General 03/14/24 documented as of this encounter
--- OUTSIDE RECORDS SUMMARY | 2024-11-16 12:13 | XMS_ITS | Encounter Summary ---
Author Organization [facility] Address [address] [place] [address] Care Team Providers Care Blender Name Role Phone Jeff Reyes M.D. Primary Care Provider [phone] Reason for Visit * Outpatient (Routine) - Closed Specialty Diagnoses / Procedures Referred By Jono donohue Referred To Contact Cardiovascular Disease Thaddeus Li M.D. [address] [place] [address] Phone: tel: fax: [facility] Referral ID Status Reason Start Date Expiration Date Visits Re quested Visits Authorized [id number] Closed 11/05/2024 05/07/2026 1 1 Encounter Details Date Type Department Care Team (Latest Contact Info) Description 11/08/2024 10:45 AM CDT Virtual Visit Department of Cardiovascular Diseases in [place], [place] [address] [place] [phone] Thaddeus Li M.D. 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 Never 10/18/2022 Do you belong to any clubs o r organizations such as lutheran groups, unions, fraternal or athletic groups, or [...] Recorded PHQ-2 Score 0 02/07/2024 [facility] of Occupat ional Health - [...] Sex Assigned at Male 06/26/2018 4:20 PM MACHINE PLATE STACKER Legal Sex Male 3:33 AM MACHINE PLATE STACKER Gender Identity Not on file Sexual Orientation Not on file documented as of this encounter Plan of Treatment Upcoming Encounters Date Type Department Care Team (Late st Contact Info) Description 02/06/2025 9:00 AM CDT Appointment Department of Radiology in [place], [place] [address] [facility] [place] [address] Pablo Vo M.D. [address] [facility] [place] [phone] 02/11/2025 2:40 PM CDT Office Visit Department of Oncology in [place], [place] [address] [facility] [place] [phone] Pablo Vo M.D. 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 [address] [place] [address] [place] [phone] PCP - General 03/14/24 documented as of this encounter
--- OUTSIDE RECORDS SUMMARY | 2024-11-16 12:13 | XMS_ITS | Encounter Summary ---
Author Organization [facility] Address [address] [place] [address] Care Team Providers Care Orthotic Practitioner Name Role Phone Jeff Reyes M.D. Primary Care Provider [phone] Reason for Referral * Outpatient (Routine) - Authorized Specialty Diagnoses / Procedures Referred By Contac t Referred To Contact Radiology Diagnoses Cholecystitis Procedures IR Percutaneous Cholecystostomy Tube Exchange Anuel Nunn M.D. [address] [place] [address] Phone: tel: fax: [facility] Referral ID Status Reason Start Date Expiration Date V isits Requested Visits Authorized [id number] Authorized 10/24/2024 01/24/2026 1 1 * Outpatient (Routine) - Closed Specialty Diagnoses / Procedures Referred By Contac t Referred To Contact Radiology Diagnoses Cholecystitis Procedures IR Percutaneous Cholecystostomy Tube Exchange Rafael Cisse P.A.-C., P.A. [address] [place] [phone] Phone: tel: fax: [facility] Referral ID Status Reason Start Date Expiration Date Visits Re quested Visits Authorized [id number] Closed 10/01/2024 01/01/2026 1 1 Reason for Visit * Outpatient (Routine) - Closed Specialty Diagnoses / Procedures Referred By Jono donohue Referred To Contact Radiology Diagnoses Cholecystitis Procedures IR Percutaneous Cholecystostomy Tube Exchange Rafael Cisse P.A.-C., P.A. [address] [place] [phone] Phone: tel: fax: [facility] Referral ID Status Reason Start Date Expiration Date Visits Re quested Visits Authorized [id number] Closed 10/01/2024 01/01/2026 1 1 Encounter Details Date Type Department Care Team (Latest Contact Info) Description 10/24/2024 9:12 AM CDT - 10/24/2024 10:53 AM CDT Hospital Encounter Department of Radiology in [place], [place] [address] [place] [phone] Rafael Cisse P.A.-C., P.A. [address] [place] [phone] Anuel Nunn M.D. [address] [place] [phone] Cholecystitis Discharge Disposition: Home or Self Care Social History Tobacco Use Types Packs/Day Years Used Date Smoking Tobacco: Former Cigarettes Q uit: 1977 Passive Smoke Exposure: Never Alcohol Use Standard Drinks/Week Comments Not Currently 1 (1 standard drink = 0.6 oz pur e alcohol) [facility] Utilities Answer Date Recorded In the past 12 months has [employer], gas, oil, or water [employer] threatened to shut off services in your [...] often do you attend chur ch or scientology services? Never 10/18/2022 Do you belong to [...] Answer Date Recorded PHQ-2 Score 0 02/07/2024 [facility] [place] of Occupat ional Health - Occupational Stress [...] your living situation today? I have a [facility] place to live 08/08/2024 Education Answer Date Recorded What is the highest level of school you have completed or the highest degree you have received? 12th grade 10/18/2022 Sex and Gender Information Value Date Recorded Sex Assigned at Male 06/26/2018 4:20 PM HOSPICE OFFICE COORDINATOR Legal Sex Male 3:33 AM HOSPICE OFFICE COORDINATOR Gender Identity Not on file Sexual Orientation Not on file documented as of this encounter Last Filed Vital Signs Vital Sign Reading Time Taken Comments Blood Pressure 121/56 10/24/2024 10:25 AM CDT Pulse 73 10/24/2024 10:25 AM CDT Temperature 36.3 C (97.3 F) 10/24/2024 9:36 AM CDT Respiratory Rate 14 10/24/2024 9:36 AM CDT Oxygen Saturation 94% 10/24/2024 10:25 AM CDT Inhaled Oxygen Concentration - - Weight - - Height - - Body Mass Index - - documented in this encounter Discharge Instructions * Discharge Instr - Activity* Maribel Johnson R.N. - 10/24/2024 10:27 AM CDT Cholecystostomy Tube Placement Discharge Instructions Activity For 1 week after your procedure: Do not lift or move anything more than 10 pounds. Avoid strenuous activities while your tube is in place. Diet Resume your normal diet. Maintain a clear liquid diet (miguel fili, chicken broth, apple juice, etc.) if you have nausea. Showering and bathing You may remove the gauze dressing from your tube site and shower 24 hours after your procedure. Allow warm water to run over your tube site and pat dry. Do not use a bathtub, pool or hot tub while the tube is in place. Wound care Remove gauze dressing after 24 hours. Clean tube site with warm water. Allow to dry and continue this daily for the one week. If there is drainage from the incision site, apply gauze dressing. You may need to change the gauzedressing more frequently during the first week if there is excessive drainage from the site. Changethe dressing as often as needed to keep the site dry. Do not let the tube dangle as it can be pulled out. Secure the drainage bag to your leg with strapsor your clothing with safety pins. Tube irrigation Flush/irrigate your tube times a day with milliliters of sterile saline. If you feel resistance or pain during injection, stop. Reattach bag and call your physician. How to irrigate Wash your hands with soap and water. Gather supplies: a) Sterile saline flush b) Cleansing swab c) New blue cap Prepare flush. Remove blue cap from stopcock. Clean on and around port opening with cleansing swab. Attach saline flush. Turn the stopcock switch so it is pointing toward the drainage bag. This means the word ???off?? and/or longest part of the stopcock is closest to the drainage bag. Flush drain with saline amount listed above. Turn stopcock switch to flush. (Thus, the longest part is closest to the flush port.) Remove flush. Clean on and around port opening with cleansing swab. Reattach new blue cap. Throw away old supplies. Wash hands with soap and water Medications Take all prescribed medications, unless your primary care provider tells you otherwise. Discomfort Some site pain is expected for 24 to 72 hours. If approved by your primary care provider, to ease pain you may use deey-ipp-wjlstit, non-aspirin, non-steroidal, anti-inflammatory drugs (NSAIDs) such as ibuprofen (Aleve, Advil, Motrin), according to package instructions. Call your health care provider if you have: Signs of infection: Temperature of 100.4 degrees Fahrenheit (38 degrees Celsius) or greater. Chills. Increased swelling, tenderness or redness at the site. Increased pain or pain not relieved by pain medications. Drainage or oozing, or bad-smelling odor coming from the site. Any issues regarding your tube There is a change in the amount of drainage. It is hard to irrigate/flush. You have pain when irrigating/flushing. Your drainage has pus or blood. The tube changes position or becomes dislodged. The tube, tubing or bag breaks or does not work. There is a leak at the tube site. If you have any questions or concerns, please call [phone] (select option 3), for the Interventional Radiology nurse. Our office hours are Monday thru Monday approx. 8:00-4:00pm. documented in this encounter Medications at Time [...] tablet 11/13/2022 documented as of this encounter Procedure Notes * Anuel Nunn M.D. - 10/24/2024 10:30 AM CDT BRIEF POST PROCEDURE NOTE Vascular & Interventional Radiology PROCEDURE Blanca tube exchange and upsize PRE-PROCEDURE DIAGNOSIS Cholecystitis, gallbladder tube retraction POST-PROCEDURE DIAGNOSIS Same. PROCEDURE DETAILS / FINDINGS Indwelling cholecystostomy catheter partially retracted into the tract. After exchange, approximately 20 mL frankly purulent gallbladder contents aspirated and sent for cultures. New 14 [place] cholecystostomy tube placed and anchored with two sutures. Contrast injection shows occluded cystic duct. Please see Radiology Report for full details. [employer]PER[employer]ENT [employer] Ollie Nunn M.D. SPECIMENS REMOVED 20 mL pus ESTIMATED BLOOD LOSS <5ml COMPLICATIONS None. PATIENT DISPOSITION Return to outpatient unit for recovery. Discharge patient when discharge criteria met. PLAN Patient is currently asymptomatic from the acute cholecystitis. If patient develops symptoms, may need course of antibiotics despite exchanging and upsizing the cholecystostomy catheter. Routine blanca tube exchange in 3 months if the patient retains the catheter. documented in this encounter Plan of Treatment Upcoming Encounters Date Type Department Care Team (Late st Contact Info) Description 02/06/2025 9:00 AM CDT Appointment Department of Radiology in [place], [place] [address], [place] [phone] Pablo Vo M.D. [address] [place] [phone] 02/11/2025 2:40 PM CDT Office Visit Department of Oncology in [place], [place] [address], [place] [phone] Pablo Vo M.D. [address] [place] [phone] Pending Results Name Type Priority Associated Diagnoses Date /Time Fungal Culture, Routine Microbiology Timed 10/24/2024 10:09 AM CDT Scheduled Orders Name Type Priority Associated Diagnoses Order Schedule IR Percutaneous Cholecystostomy Tube Exchange Imaging RAD - Routine (most inpatients and all outpatients) Cholecystitis Expected: 01/23/2025, Expires: 01/23/2026 documented as of this encounter Procedures Procedure Name Priority Date/Time Associated Diagnosis Comments IR PERCUTANEOUS CHOLECYSTOSTOMY TUBE EXCHANGE RAD - Routine (most inpatients and all outpatients) 10/24/2024 10:18 AM CDT Cholecystitis BACTERIAL CULTURE, AEROBIC + SUSC Timed 10/24/2024 10:09 AM CDT GRAM STAIN Timed 10/24/2024 10:09 AM CDT FUNGAL CULTURE, ROUTINE Timed 10/24/2024 10:09 AM CDT BACTERIAL CULTURE, ANAEROBIC + SUSC Timed 10/24/2024 10:09 AM CDT documented in this encounter Results * IR Percutaneous Cholecystostomy Tube Exchange (10/24/2024 10:18 AM CDT) Anatomical Region Laterality Modality Abdomen, Vascular Interventi onal RST LOS, Vascular Interventional ARZ LOS, Vascular Interventional FLA LOS N/A X-Ray Angiography Impressions 10/25/2024 9:21 PM CDT Expedited exchange of the cholecystostomy catheter due to indwelling catheter retraction. Catheter upsized due to frankly purulent bile within the gallbladder. Cystic duct is occluded on today's exam. Narrative 10/25/2024 9:21 PM CDT EXAM: IR PERCUTANEOUS CHOLECYSTOSTOMY TUBE EXCHANGE INDICATION: 74 year old male with history of cholecystitis requiring cholecystostomy tube exchange, routine 3 month exchange if the patient is not a cholecystectomy candidate COMPARISON: Cholecystostomy tube exchange from 10/01/2024 PROCEDURAL PERSONNEL: Attending: Anuel Nunn PREPROCEDURE: Patient [...] medications. Patient education provided by a care steamtable worker. Patient was ready to learn with no apparent learning barriers were identified. Post-procedure care explained; patient expressed understanding of the content. PROCEDURE DETAILS: Sedation: None. Sedation time: Not applicable. Estimated Blood Loss: Less than 10 mL. TECHNIQUE: Imaging guidance for catheter exchange: Fluoroscopy with permanent image storage Access side: Right lateral abdomen intercostal transhepatic Catheter: 14 Citizen [place] 25 cm multipurpose pigtail drain Technique: The indwelling 12 [place] catheter was injected with contrast. A guidewire was inserted through the catheter, and the catheter was exchanged for a new 47 [place] catheter. Contrast was injected confirming the location of the catheter. A permanent image was saved to PACS. The catheter was connected to a gravity drainage bag. Intraprocedural or immediate post-procedural complications: None FINDINGS: Initial images showed the catheter to be mostly retracted and multiple sideholes located within the catheter tract. Contrast injection shows occlusion of the cystic duct. Purulent bile was aspirated and sent for samples. Catheter tip location: Final fluoroscopic image demonstrates the catheter tip to be located within the gallbladder. Additional observations: Patient denied any fever or worsening nausea/RUQ pain. PLAN: The patient is to return in 3 months for a routine catheter exchange. Catheter upsized to 14 [place]. If patient remains not a surgical candidate, may consider spyglass lithotripsy. Procedure Note Anuel Nunn M.D. - 10/25/2024 EXAM: IR PERCUTANEOUS CHOLECYSTOSTOMY TUBE EXCHANGE INDICATION: 74 year old male with history of cholecystitis requiringcholecystostomy tube exchange, routine 3 month exchange if the patient isnot a cholecystectomy candidate COMPARISON: Cholecystostomy tube exchange from 10/01/2024 PROCEDURAL PERSONNEL: Attending: Anuel Nunn PREPROCEDURE: Patient [...] medications. Patient education provided by a care steamtable worker. Patient was ready to learn withno apparent learning barriers were identified. Post-procedure careexplained; patient expressed understanding of the content. PROCEDURE DETAILS: Sedation: None. Sedation time: Not applicable. Estimated Blood Loss: Less than 10 mL. TECHNIQUE: Imaging guidance for catheter exchange: Fluoroscopy with permanent imagestorage Access side: Right lateral abdomen intercostal transhepatic Catheter: 14 [place] 25 cm multipurpose pigtail drain Technique: The indwelling 12 [place] catheter was injected with contrast. Aguidewire was inserted through the catheter, and the catheter wasexchanged for a new 47 [place] catheter. Contrast was injected confirmingthe location of the catheter. A permanent image was saved to PACS. The catheter was connected to a gravitydrainage bag. Intraprocedural or immediate post-procedural complications: None FINDINGS: Initial images showed the catheter to be mostly retracted and multiplesideholes located within the catheter tract. Contrast injection showsocclusion of the cystic duct. Purulent bile was aspirated and sent for samples. Catheter tip location: Final fluoroscopic image demonstrates the cathetertip to be located within the gallbladder. Additional observations: Patient denied any fever or worsening nausea/RUQpain. PLAN: The patient is to return in 3 months for a routine catheter exchange.Catheter upsized to 14 [place]. If patient remains not a surgicalcandidate, may consider spyglass lithotripsy. IMPRESSION: Expedited exchange of the cholecystostomy catheter due to indwellingcatheter retraction. Catheter upsized due to frankly purulent bile withinthe gallbladder. Cystic duct is occluded on today's exam. Rafael Cisse P.A.-C., P.A. IMG IR PROCEDURES Nieves l Result * Bacterial Culture, Anaerobic + Susceptibility (10/24/2024 10:09 AM CDT) Bacterial Culture, Anaerobic No growth after 7 days of incubation. 10/31/2024 8:02 AM CDT MKTO Fluid (Gallbladder) 10/24/2024 10:09 AM CDT 10/24/2024 10:36 AM CDT Comment:Specimen Source Site : Fluid Anuel Nunn M.D. LAB MICROBIOLOGY - GENERAL OR DERABLES Final Result [facility] [address] [place] [address], [facility] in [place] [address] [place] [phone] * (ABNORMAL) Gram Stain (10/24/2024 10:09 AM CDT) Gram Stain White blood cells, Many.(A) 10/24/2024 11:22 AM CDT MKTO Gram Stain GRAM POSITIVE COCCUS RESEMBLING STREPTOCOCCUS Moderate. (A) 10/24/2024 11:22 AM CDT MKTO Fluid (Gallbladder) 10/24/2024 10:09 AM CDT 10/24/2024 10:36 AM CDT Comment:Specimen Source Site : Fluid Anuel Nunn M.D. LAB MICROBIOLOGY - GENERAL OR DERABLES Final Result [facility] [address] [place] [address], [place] [facility] [place] [facility] in [place] [address] [place] [address] * (ABNORMAL) Bacterial Culture, Aerobic + Susceptibility (10/24/2024 10:09 AM CDT) Bacterial Culture, Aerobic + Susc KLEBSIELLA PNEUMONIAE COMPLEX 4+ (A) 10/26/2024 8:40 AM CDT MKTO Bacterial Culture, Aerobic + Susc STREPTOCOCCUS AGALACTIAE 4+ (A) 10/26/2024 8:40 AM CDT MKTO Comment: Susceptibilities not performed per laboratory criteria. If susceptibilities desired, call Microbiology. Fluid (Gallbladder) 10/24/2024 10:09 AM CDT 10/24/2024 10:36 AM CDT Comment:Specimen Source Site : Fluid Narrative Organism Antibiotic Method Susceptibility Klebsiella pneumoniae complex Ampicillin SUSCEPTIBILITY, STACEY (MCG/ML) >=32 mcg/mL: Resistant Klebsiella pneumoniae complex Ampicillin + Sulbactam SUSCEPTIBILITY, STACEY (MCG/ML) >=32 mcg/mL: Resistant Klebsiella pneumoniae complex Piperacillin + Tazobactam SUSCEPTIBILITY, STACEY (MCG/ML) 16 mcg/mL: Susceptible-dose dependent Klebsiella pneumoniae complex Ceftazidime SUSCEPTIBILITY, STACEY (MCG/ML) 8 mcg/mL: Intermediate Klebsiella pneumoniae complex Ceftriaxone SUSCEPTIBILITY, STACEY (MCG/ML) >=64 mcg/mL: Resistant Klebsiella pneumoniae complex Cefepime SUSCEPTIBILITY, STACEY (MCG/ML) 2 mcg/mL: Susceptible Klebsiella pneumoniae complex Aztreonam SUSCEPTIBILITY, STACEY (MCG/ML) 16 mcg/mL: Resistant Klebsiella pneumoniae complex Ertapenem SUSCEPTIBILITY, STACEY (MCG/ML) <=0.5 mcg/mL: Susceptible Klebsiella pneumoniae complex Meropenem SUSCEPTIBILITY, STACEY (MCG/ML) <=0.25 mcg/mL: Susceptible Klebsiella pneumoniae complex Gentamicin SUSCEPTIBILITY, STACEY (MCG/ML) >=16 mcg/mL: Resistant Klebsiella pneumoniae complex Tobramycin SUSCEPTIBILITY, STACEY (MCG/ML) >=16 mcg/mL: Resistant Klebsiella pneumoniae complex Levofloxacin SUSCEPTIBILITY, STACEY (MCG/ML) <=0.12 mcg/mL: Susceptible Klebsiella pneumoniae complex Trimethoprim + Sulfamethoxazole SUSCEPTIBILITY, STACEY (MCG/ML) <=20 mcg/mL: Susceptible us Anuel Nunn M.D. LAB MICROBIOLOGY - GENERAL OR DERABLES Final Result [facility] [address] [place] [address], [facility] MK[facility] [place] [facility] in [place] [address] [place] [address] documented in this encounter Visit Diagnoses Diagnosis Cholecystitis documented in this encounter Administered Medications Inactive Administered Medications - up to 3 most recent administrations Medication Order MAR Action Action Date Dose Rate Site iohexoL 350 mg iodine/mL solution (Omnipaque) As needed, Starting on Jayla 10/24/24 at 1021, Intra-Op Given 10/24/2024 10:21 AM CDT 10 mL lidocaine-sodium bicarbonate (buffered) 0.9%-0.84% injection infiltration, As needed, Starting on Jayla 10/24/24 at 1003, Intra-Op Given 10/24/2024 10:12 AM CDT 1 mL Abdominal Tissue Given 10/24/2024 10:03 AM CDT 5 mL A bdominal Tissue documented in this encounter Active and Recently Administered Medications Times are shown in CDT. PRN Medication Order 10/22/2024 10/23/2024 10/24/2024 iohexoL 350 mg iodine/mL solution (Omnipaque) (COMPLETED) As needed, Starting on Jayla 10/24/24 at 1021, Intra-Op 1021 (Given - Provid er: Anuel Nunn M.D.) lidocaine-sodium bicarbonate (buffered) 0.9%-0.84% injection (COMPLETED) infiltration, As needed, Starting on Jayla 10/24/24 at 1003, Intra-Op 1003 (Given - Provid er: Anuel Nunn M.D.)1012 (Given - Provider: Anuel Nunn M.D.) documented in this encounter Additional Health Concerns Assessment Noted Time PHQ-9 Depression Total Score: 10 05/26/2 018 11:00 AM CDT documented as of this encounter Care Teams Orthotic Practitioner Relationship Specialty Start Date End Date Jeff Reyes M.D. [address] [place] [phone] PCP - General 03/14/24 documented as of this encounter
--- OUTSIDE RECORDS SUMMARY | 2024-11-16 12:14 | XMS_ITS | Patient Health Record ---
Author Organization [facility] Address [address] [place] [address] Care Team Providers Care Infant Caregiver Name Role Phone Rubén Paez MD Primary Care Provider Melody Michael [place] Unavailable [phone] Reason For Referral No Information Social History Tobacco Use: Social History Observation Description Date Details (start date - stop date) Former Smoker NA - NA Tobacco Use/Smoking Question Answer Notes Are you a former smoker Section Notes: FAMILY HISTORY: HISTORY OF FAMILY PSYCH: Problems Problem Type SNOMED Code ICD Code Onset Dates Problem Status W/U Status Risk Notes Problem Tinea unguium (433350863) Tinea unguium (B35.1) Active confirmed Problem 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 (608840038) 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 confirmed Problem 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 Problem Pressure injury of right buttock stage III (disorder) (74754821181569 ) Pressure ulcer of right buttock, stage 3 (L89.313) Active confirmed Problem Pressure injury of right heel stage IV (disorder) (75067274898956 ) Pressure ulcer of right heel, stage 4 (L89.614) Active confirmed Plan Of Treatment No Information Insurance Providers Payer Name Payer Address Payer Phone Subscriber Number Group Number Insured Name Patient Relationship to Insured Coverage Start Date Coverage End Date [employer] [id number] (Government Programs) [address] [address] [place], [place] [id number] Ren Ramirez Self - patient is the insured 7 [facility] [place] Government Services/Med icare [address] [facility] [place] [address] [id number] Ren Ramirez Self - patient is the insured 3
--- OUTSIDE RECORDS SUMMARY | 2024-11-16 12:14 | XMS_ITS | Encounter Summary ---
Author Organization [facility] Address [address] [place] [address] Care Team Providers Care Registered Mail Clerk Name Role Phone Jeff Reyes M.D. Primary Care Provider [phone] Reason for Referral * MRI/CAT/PET Scan (Routine) - Closed Specialty Diagnoses / Procedures Referred By Jono donohue Referred To Contact Radiology Diagnoses Embolus Pulmonary (HCC) Acute Embolism And Thrombosis Of Other Specified Deep Vein Of Lower Extremity Bilateral (HCC) Procedures CT Chest Angiogram and Pulmonary Arteries with IV Contrast CT Chest Angiogram with IV Contrast Pablo Vo M.D. [address] [place] [address] Phone: tel: fax: LUIS ANGEL [facility] Referral ID Status Reason Start Date Expiration Date Visits Re quested Visits Authorized [id number] Closed 11/12/2024 02/12/2026 1 1 * Outpatient (Routine) - Authorized Specialty Diagnoses / Procedures Referred By Jono donohue Referred To Contact Oncology Pablo Vo M.D. [address] [place] [address] Phone: tel: [facility]: [facility] Region Referral ID Status Reason Start Date Expiration Date V isits Requested Visits Authorized [id number] Authorized 11/12/2024 05/14/2026 1 1 * Outpatient (Routine) - Closed Specialty Diagnoses / Procedures Referred By Jono donohue Referred To Contact Diagnoses Embolus Pulmonary (HCC) Acute Embolism And Thrombosis Of Other Specified Deep Vein Of Lower Extremity Bilateral (HCC) Procedures US Lower Extremity Veins Bilateral Pablo Vo M.D. [address] [place] [address] Phone: tel: fax: [facility] Region Referral ID Status Reason Start Date Expiration Date Visits Re quested Visits Authorized [id number] Closed 11/12/2024 02/12/2026 1 1 Reason for Visit * Reason Comments Consult * Appointment Request (Routine) - Closed Specialty Diagnoses / Procedures Referred By oJno donohue Referred To Contact Hematology Diagnoses Thrombophilia Personal History Bijan Crawford M.D. [address] [place] [phone] Phone: tel: fax: Referral ID Status Reason Start Date Expiration Date Visits Re quested Visits Authorized [id number] Closed 10/18/2024 01/18/2026 1 1 Encounter Details Date Type Department Care Team (Latest Contact Info) Description 11/12/2024 9:00 AM CDT Comprehensive Visit Department of Oncology in [place], [place] [address] [place] [address] Pablo Vo M.D. [address] [place] [phone] Embolus Pulmonary (HCC) (Primary Dx); Acute Embolism [...] drink = 0.6 oz pur e alcohol) [facility] Utilities Answer Date Recorded In the [...] How often do you attend chur or samaritan services? Never 10/18/2022 Do you belong to any clubs o r organizations such as voodoo groups, unions, fraternal or athletic groups, or [...] Answer Date Recorded PHQ-2 Score 0 02/07/2024 [facility] - Occupational Stress Questionnaire Answer Date [...] Sex Assigned at Male 06/26/2018 4:20 PM SVP BUSINESS DEVELOPMENT Legal Sex Male 3:33 AM [employer]P BUSINESS DEVELOPMENT Gender Identity Not on file Sexual Orientation [...] Body Mass Index 34.23 09/15/2024 3:21 PM [employer] DEVELOP[employer] documented in this encounter Consult Notes * Pablo Vo M.D. - 11/12/2024 9:00 AM CDT PRIMARY CARE PHYSICIAN Jeff Reyes M.D. REQUESTING PROVIDER Bijan Crawford M.D. [address] [place] [phone] REASON FOR VISIT Bilateral PE/DVT SUBJECTIVE HISTORY OF PRESENT ILLNESS Mr. Ramirez is a very pleasant 74 y.o. gentleman with a history of bilateral PE/DVT as follows: Oncology History Embolus Pulmonary (HCC) 08/08/2024 Initial Diagnosis Embolus Pulmonary (HCC) initially presented to [facility] from [facility] with right lower quadrant pain directly transferred to [facility] for further management of bilateral PE with [...] it. Otherwise, for an elective cholecystectomy, per [place] KASANDRA this was be considered as a [...] AM CDT Appointment Department of Radiology in [place], [place] [address] [phone] Pablo Vo M.D. [address] [place] [address] 02/11/2025 2:40 PM CDT Office Visit Department of Oncology in [place], [place] [address] [phone] Pablo Vo M.D. [address] [place] [address] Scheduled Referrals Name Type Priority Associated Diagnoses [...] and management can be found on the [employer] site. Link https://askmayoexpert.[facility].org/topic/clinical-answers/cnt-52259668/cpm-204 95501 Procedure Note Codey Saavedra M.D. - 11/14/2024 [...] thrombosis and management can be found on theAskPandaBed site. Linkhttps://Hypertension Diagnosticsert.[facility].org/topic/clinical-answers/cnt-47611910/cpm -2049 1725 IMPRESSION: Negative for acute DVT. [...] ventricular dysfunction are absent. Pablo Vo M.D. [facility] PROCEDURES Final Result * Creatinine with [...] Vo M.D. LAB BLOOD ADD-ON Final Result [facility] [address] [place] [address], [facility] [place] [address] [place] [address] documented in this encounter Visit Diagnoses Diagnosis [...] documented as of this encounter Care Teams Registered Mail Clerk Relationship Specialty Start Date End Date Jeff Reyes M.D. [address] [place] [phone] PCP - General 03/14/24 documented as of this encounter
--- OUTSIDE RECORDS SUMMARY | 2024-11-16 12:14 | XMS_ITS | Encounter Summary ---
Author Organization [facility] Address [address] [place] [address] Care Team Providers Care Wicker Worker Name Role Phone Jeff Reyes M.D. Primary Care Provider [phone] Reason for Referral * Outpatient (Routine) - Closed Specialty Diagnoses / Procedures Referred By Jono donohue Referred To Contact Diagnoses Embolus Pulmonary (HCC) Acute Embolism And Thrombosis Of Other Specified Deep Vein Of Lower Extremity Bilateral (HCC) Procedures US Lower Extremity Veins Bilateral Pablo Vo M.D. [address] [place] [address] Phone: tel:[phone] fax: [facility] Referral ID Status Reason Start Date Expiration Date Visits Re quested Visits Authorized [id number] Closed 11/12/2024 02/12/2026 1 1 Reason for Visit * Outpatient (Routine) - Closed Specialty Diagnoses / Procedures Referred By Jono donohue Referred To Contact Diagnoses Embolus Pulmonary (HCC) Acute Embolism And Thrombosis Of Other Specified Deep Vein Of Lower Extremity Bilateral (HCC) Procedures US Lower Extremity Veins Bilateral Pablo Vo M.D. [address] [place] [address] Phone: tel: fax: [facility] Region Referral ID Status Reason Start Date Expiration Date Visits Re quested Visits Authorized [id number] Closed 11/12/2024 02/12/2026 1 1 Encounter Details Date Type Department Care Team (Latest Contact Info) Description 11/14/2024 8:45 AM CDT - 11/14/2024 11:59 PM CDT Hospital Encounter Department of Radiology in [place], [place] [address] [place] [address] Pablo Vo M.D. [address] [place] [address] Embolus Pulmonary (HCC); Acute Embolism [...] 0.6 oz pur e alcohol) [facility] Utilities Answer Date Recorded In the past 12 months has e [employer], gas, oil, or water [employer] threatened to shut off services in your [...] often do you attend chur ch or yarsanism services? Never 10/18/2022 Do you belong to [...] Answer Date Recorded PHQ-2 Score 0 02/07/2024 [facility] [place] [facility] of Occupat ional [facility] - Occupational Stress Questionnaire Answer Date Recorded [...] your living situation today? I have a [facility] place to live 11/08/2024 Education Answer Date Recorded What is the highest level of school you have completed or the highest degree you have received? 12th grade 10/18/2022 Sex and Gender Information Value Date Recorded Sex Assigned at Male 06/26/2018 4:20 PM HEALTH AND SAFETY TRAINER Legal Sex Male 3:33 AM HEALTH AND SAFETY TRAINER Gender Identity Not on file Sexual Orientation [...] AM CDT Appointment Department of Radiology in [place], [place] [address] [address] Pablo Vo M.D. [address] [place] [address] 02/11/2025 2:40 PM CDT Office Visit Department of Oncology in [place], [place] [address], [place] [address] Pablo Vo M.D. [address] [place] [phone] documented as of this encounter Procedures Procedure [...] and management can be found on the [employer] site. Link https://AppsFlyer.[facility].org/topic/clinical-answers/cnt-15699182/cpm-204 38518 Procedure Note Codey Saavedra M.D. - 11/14/2024 [...] thrombosis and management can be found on the[employer] site. Linkhttps://AppsFlyer.[facility].org/topic/clinical-answers/cnt-97549732/[facility] -2049 1725 IMPRESSION: Negative for acute DVT. us Pablo Vo M.D. [facility] US PROCEDURES Final Result documented in this encounter Visit Diagnoses Diagnosis Embolus Pulmonary (HCC) Acute Embolism And Thrombosis Of Other Specified Deep Vein Of Lower Extremity Bilateral (HCC) documented in this encounter Additional Health Concerns Assessment Noted Time PHQ-9 Depression Total Score: 10 018 11:00 AM CDT documented as of this encounter Care Teams Wicker Worker Relationship Specialty Start Date End Date Jeff Reyes M.D. [address] [place] [phone] PCP - General 03/14/24 documented as of this encounter
--- OUTSIDE RECORDS SUMMARY | 2024-11-16 12:14 | XMS_ITS | Encounter Summary ---
Author Organization [facility] Address [address] [place] [address] Care Team Providers Care Prizer Hand Name Role Phone Jeff Reyes M.D. Primary Care Provider [phone] Encounter Details Date Type Department Care Team (Latest Contact Info) Description 11/12/2024 10:26 AM CDT - 11/12/2024 11:59 PM CDT Hospital Encounter Department of Laboratory Medicine in [place], [place] [address] [place] [address] Pablo Vo M.D. [address] [place] [address] Embolus Pulmonary (HCC); Acute Embolism And Thrombosis Of Other Specified Deep Vein Of Lower Extremity Bilateral (HCC) Discharge Disposition: Home or Self Care Social History Tobacco Use Types Packs/Day Years Used Date Smoking Tobacco: Former Cigarettes Q uit: 1977 Passive Smoke Exposure: Never Alcohol Use Standard Drinks/Week Comments Not Currently 1 (1 standard drink = 0.6 oz pur e alcohol) [facility] Utilities Answer Date Recorded In the past 12 months has e electric, gas, oil, or water [employer] threatened to shut off services in your [...] any clubs o r organizations such as islam groups, unions, fraternal or athletic groups, or [...] living situation today? I have a [facility] place to live 11/08/2024 Education Answer Date Recorded What is the highest level of school you have completed or the highest degree you have received? 12th grade 10/18/2022 Sex and Gender Information Value Date Recorded Sex Assigned at Male 06/26/2018 4:20 PM RN FIRST ASSISTANT Legal Sex Male 3:33 AM RN FIRST ASSISTANT Gender Identity Not on file Sexual [...] AM CDT Appointment Department of Radiology in [place], [place] [address], [place] [address] Pablo Vo M.D. [address] [place] [address] 02/11/2025 2:40 PM CDT Office Visit Department of Oncology in [place], [place] [address], [place] [address] Pablo Vo M.D. [address] [place] [address] documented as of this encounter Procedures Procedure [...] 10:32 AM CDT 11/12/2024 10:38 AM CDT Pablo Vo M.D. LAB BLOOD ADD-ON Final Result [facility] [address] [place] [address], [facility] [place] [address] [place] [address] documented in this encounter Visit Diagnoses Diagnosis Embolus Pulmonary (HCC) Acute Embolism And Thrombosis Of Other Specified Deep Vein Of Lower Extremity Bilateral (HCC) documented in this encounter Additional Health Concerns Assessment Noted Time PHQ-9 Depression Total Score: 10 018 11:00 AM CDT documented as of this encounter Care Teams Prizer Hand Relationship Specialty Start Date End Date Jeff Reyes M.D. [address] [place] [phone] PCP - General 03/14/24 documented as of this encounter
--- OUTSIDE RECORDS SUMMARY | 2024-11-16 12:14 | XMS_ITS | Clinical Summary ---
Author Organization [facility] Address [address] [place] [address] Care Team Providers Care Communications Writer Name Role Phone Jeff Reyes M.D. Primary Care Provider [phone] Source Comments Patient records contain information from all sites at [facility]. For routine questions regarding patient records, call [phone] during business hours, M-F 8:00 AM - 5:00 PM Central Time. Record requests for emergency care only can be directed to [phone] at any time.[facility] Allergies Active Allergy Reactions Criticality Noted Date Comments Haemophilus Influenzae Other (see comments) High Vancomycin Vancomycin Infusion Reaction Medium 05/26/2018 Red Man Syndrome Medications * This document contains information received from the source organization and may not represent a complete record from that organization. sennosides-doc usate sodium (SENOKOT-S) 8.6-50 mg per tabletIndicati ons:Neurogenic Bowel Take 1 tablet by mouth 2 (two) times a day as needed for constipation. 8 Active latanoprost (XALATAN) 0.005 % ophthalmic solution Administer 1 drop into both eyes daily. 3 Active aspirin [address] tablet Take 1 tablet (81 mg total) by mouth daily. 60 tablet 3 Active metoprolol succinate (TOPROL-XL) 100 mg 24 hr tabletIndicati ons:Hypertensi on Essential Primary Take 1 tablet (100 mg total) by mouth daily. Do not crush or chew. 90 tablet 3 Active pantoprazole (PROTONIX) 40 mg EC tablet Take 1 tablet (40 mg total) by mouth 2 (two) times a day before breakfast and dinner. 180 tablet 3 3 Active baclofen (LIORESAL) 10 mg tabletIndicati ons:Multiple Sclerosis (HCC) Take 1 tablet (10 mg total) by mouth 2 (two) times a day. 60 tablet 3 Active lisinopriL (PRINIVIL,ZEST RIL) 40 mg tabletIndicati ons:Hypertensi on Essential Primary Take 1 tablet (40 mg total) by mouth daily. 90 tablet 3 Active NIFEdipine XL (PROCARDIA XL) 90 mg 24 hr tablet Take 1 tablet (90 mg total) by mouth daily. 90 tablet 3 Active calcium carbonate (TUMS) 500 mg (200 mg calcium) chewable tablet Chew 2 tablets (400 mg of calcium total) 2 (two) times a day. 3 Active furosemide (LASIX) 20 mg tablet Take 1 tablet (20 mg total) by mouth daily. 30 tablet 11 3 Active polyethylene glycol (MIRALAX) 17 gram powder packet Take 1 packet (17 g total) by mouth daily as needed for constipation. Dissolve each 17 g dose in 240 mLs (8 ounces) of beverage. 30 each 1 3 Active ondansetron (ZOFRAN) 4 mg tablet Take 4 mg by mouth every 6 (six) hours as needed for nausea or vomiting. 3 Active bacitracin 500 unit/gram ointment Apply 1 Application topically 2 (two) times a day. 4 Active melatonin 5 mg tablet Take 1 tablet (5 mg total) by mouth at bedtime as needed (for sleep). 30 tablet 11 4 Active AntifungaL, clotrimazole, 1 % cream Apply 1 Application topically 2 (two) times a day. 4 Active furosemide (Lasix) 40 mg tablet Take 40 mg by mouth every morning. Active apixaban (Eliquis) 5 mg tablet Take 2 tablets (10 mg total) by mouth 2 (two) times a day for 3 days, THEN 1 tablet (5 mg total) 2 (two) times a day. 192 tablet 5 11/18/19 25 Active potassium chloride 10 mEq ER capsule Take 1 capsule (10 mEq total) by mouth 2 (two) times a day with meals. 5 Active acetaminophen (TylenoL) 500 mg tablet Take 2 tablets (1,000 mg total) by mouth 3 (three) times a day. 5 Active diclofenac sodium (Voltaren) 1 % gelIndications :Multiple Sclerosis (HCC) Apply 2 g topically 2 (two) times a day as needed (pain). 5 Active GAS RELIEF 80 mg chewable tablet Chew 1 tablet (80 mg total) 4 (four) times a day as needed for flatulence. 5 Active cholecalcifero l 25 mcg (1,000 unit) tablet Take 1 tablet (25 mcg total) by mouth daily. 5 Active senna 8.6 mg tablet Take 8.6 mg by mouth 2 (two) times a day. 5 Active oxyCODONE (Roxicodone) 5 mg immediate release tablet Take 5 mg by mouth every 6 (six) hours as needed for severe pain or score 7-10 of 10. 5 Active atorvastatin (Lipitor) 80 mg tablet Take 1 tablet (80 mg total) by mouth at bedtime. 90 tablet 3 5 Active atorvastatin (LIPITOR) 40 mg tablet Take 1 tablet (40 mg total) by mouth at bedtime. 30 tablet 3 11/09/19 25 Discontin ued(Reord er) Active Problems Problem Noted Date Diagnosed Date Acute Embolism And Thrombosi s Of Other Specified Deep Vein Of Lower Extremity Bilateral 11/12/2024 Body Mass Index 34.0 To 34.9 Adult 11/12/2024 Embolus Pulmonary 08/08/2024 Open Reduction Internal Fixation [...] Obstructive 07/19/2018 Atherosclerotic Heart Diseas e Of [place] Coronary Artery Without Angina Pectoris 06/29/2018 Overview (10/19/2022): History of [place] Assessment & Plan (07/04/2018 2:57 PM GEARMAN): -Continue atorvastatin 40 mg daily -Continue metoprolol [...] cellulitis. Assessment & Plan (07/04/2018 2:56 PM GEARMAN): Continue I&O catheterization as needed Multiple Sclerosis 06/03/2003 Assessment & Plan (07/04/2018 3:32 PM GEARMAN): -Continue to follow with Neurology for further recommendations Resolved Problems Problem Noted Date Diagnosed Date Resolved Date Sprain Ankle Initial Right 11/08/2022 0 11/09/2022 Obesity Unspecified 03/21/2019 11/10/19 23 Urinary Tract Infection Site Not Specified 07/04/2018 11/09/2022 Overview (07/04/2018): Completed ciprofloxacin 500 mg b.i.d. for an antibiotic course of 14 days (last dose on 06/08/2018) Assessment & Plan (07/04/2018 3:31 PM GEARMAN): -Patient denies any urinary symptoms today on exam. -Continue care cranberry 450 mg daily Failure Renal Acute (Acute Kidney Injury) 05/27/2018 10/19/2022 Non-ST Elevation Myocardial Infarction 05/26/2018 10/23/2019 Assessment & Plan (07/04/2018 10:14 AM GEARMAN): 1. Continue aspirin 81 mg daily 2. [...] Date Type Department Care Team Description 11/14/2024 8:45 AM CDT - 11/14/2024 11:59 PM CDT Hospital Encounter Department of Radiology in [place], [place] [address] [place] [phone] Pablo Vo M.D. Embolus Pulmonary (HCC); Acute Embolism And Thrombosis Of Other Specified Deep Vein Of Lower Extremity Bilateral (HCC) Discharge Disposition: Home or Self Care 11/14/2024 8:23 AM CDT - 11/14/2024 8:44 AM CDT Hospital Encounter Department of Radiology in [place], [place] [address] [place] [phone] Pablo Vo M.D. Embolus Pulmonary (HCC); Acute Embolism And Thrombosis Of Other Specified Deep Vein Of Lower Extremity Bilateral (HCC) Discharge Disposition: Home or Self Care 11/14/2024 Results Follow-Up Department of Oncology in [place], [place] [address] [place] [phone] Chest Angiogram and Pulmonary Arteries with IV Contrast 11/12/2024 10:26 AM CDT - 11/12/2024 11:59 PM CDT Hospital Encounter Department of Laboratory Medicine in [address] [phone] Pablo Vo M.D. Embolus Pulmonary (HCC); Acute Embolism And Thrombosis Of Other Specified Deep Vein Of Lower Extremity Bilateral (HCC) Discharge Disposition: Home or Self Care 11/12/2024 9:00 AM CDT Comprehensive Visit Department of Oncology in [place], [place] [address] [place] [phone] Pablo Vo M.D. Embolus Pulmonary (HCC) (Primary Dx); Acute Embolism And Thrombosis Of Other Specified Deep Vein Of Lower Extremity Bilateral (HCC); Paraplegia (HCC); Multiple Sclerosis (HCC); Body Mass Index 34.0 To 34.9 Adult 11/12/2024 Clinical Communication Department of [facility], [facility], in [address] [place] [address] Jeff Reyes M.D. 11/08/2024 10:45 AM CDT Virtual Visit Department of Cardiovascular Diseases in [place], [place] [address] [place] [phone] Thaddeus Li M.D. Hyperlipidemia On Treatment (Primary Dx); Atherosclerotic Heart Disease Of [place] Coronary Artery Without Angina Pectoris; Preoperative Examination Cardiovascular; Embolus Pulmonary (HCC) 11/06/2024 8:22 AM CDT - 11/06/2024 11:59 PM CDT Hospital Encounter Department of Cardiovascular Diseases in [place], [place] [address] [place] [address] Thaddeus Li M.D. Cholecystitis; Preoperative Examination Cardiovascular; Hyperlipidemia On Treatment; Atherosclerotic Heart Disease Of [place] Coronary Artery Without Angina Pectoris Discharge Disposition: Home or Self Care 11/05/2024 9:24 AM CDT - 11/05/2024 11:59 PM CDT Hospital Encounter Department of Laboratory Medicine in [place], [place] [address] [phone] Thaddeus Li M.D. Cholecystitis; Preoperative Examination Cardiovascular; Hyperlipidemia On Treatment; Atherosclerotic Heart Disease Of [place] Coronary Artery Without Angina Pectoris Discharge Disposition: Home or Self Care 11/05/2024 8:45 AM CDT Comprehensive Visit Department of Cardiovascular Diseases in [place], [place] [address] [place] [phone] Thaddeus Li M.D. Preoperative Examination Cardiovascular (Primary Dx); Cholecystitis; Hyperlipidemia On Treatment; Atherosclerotic Heart Disease Of [place] Coronary Artery Without Angina Pectoris 11/05/2024 7:35 AM CDT - 11/05/2024 9:23 AM CDT Hospital Encounter Department of Laboratory Medicine in [address] [phone] Roland Benson D.O. Cholecystitis Discharge Disposition: Home or Self Care 10/24/2024 9:12 AM CDT - 10/24/2024 10:53 AM CDT Hospital Encounter Department of Radiology in [address] [phone] Rafael Cisse P.A.-C., P.Anuel Greenfield M.D. Cholecystitis Discharge Disposition: Home or Self Care 10/23/2024 Clinical Communication Department of Radiology in [address] [phone] Anuel Nunn M.D. Blanca Tube Follow Up 10/22/2024 Clinical Communication Department of Oncology in [address] [phone] Pablo Vo M.D. 10/01/2024 11:06 AM CDT - 10/01/2024 12:09 PM CDT Hospital Encounter Department of Radiology in [address] [phone] Anuel Nunn M.D. Cholecystitis Discharge Disposition: Home or Self Care 09/20/2024 Clinical Communication Department of General Surgery in [address] [phone] Roland Benson D.O. Communication (Regarding procedure and current medication regimen) 09/20/2024 Clinical Communication Department of Radiology in [address] [phone] Anuel Nunn M.D. 09/15/2024 11:32 AM GEARMAN - 09/15/2024 6:[address] [facility] Emergency Department [address] [place] [phone] Erlin Crocker, D.Tammy., M.S. Allergic Contact Dermatitis Due To Adhesives (Primary Dx); Cholecystitis Acute And Chronic Discharge Disposition: Home or Self Care 09/04/2024 10:45 AM GEARMAN Comprehensive Visit Department of General Surgery in [address] [phone] Roland Benson D.O. Cholecystitis Discharge Disposition: Home or Self Care 09/02/2024 12:21 PM GEARMAN - 09/03/2024 3:[address] [facility] Emergency Department [address] [place] [phone] David Kumar D.O. Planas, Jason H, M.D. Ho, Trinh N, D.O. Candelario Oseguera M.D., M.B.A. Nausea And Vomiting (Primary Dx) Discharge Disposition: Home or Self Care 08/20/2024 Clinical Communication Department of Family Medicine, [facility], in [address] [facility] [place] [phone] Asia Bartholomew, R.N. Post Hospital Follow-up from Last 3 Months Immunizations Immunization Administration [...] Hypertension Father father Sleep apnea Father father DVT - Deep vein thrombosis Neg Hx Miscarriages / Stillbirths Neg Hx Pulmonary embolism Neg Hx Relation Name Status Comments Father father Mother Social History Tobacco Use Types Packs/Day Years Used Date Smoking Tobacco: Former Cigarettes Q uit: 1977 Passive Smoke Exposure: Never Tobacco Cessation:Counseling Given: Not Answered Alcohol Use Standard Drinks/Week Comments Not Currently 1 (1 standard drink = 0.6 oz pur e alcohol) [facility] [employer] Answer Date Recorded In the past 12 months has th e electric, gas, oil, or water [employer] threatened to shut off services in your [...] often do you attend chur ch or mormon services? Never 10/18/2022 Do you belong to any clubs o r organizations such as jewish groups, unions, fraternal or athletic groups, or [...] Answer Date Recorded PHQ-2 Score 0 02/07/2024 [facility] - Occupational Stress Questionnaire Answer Date [...] your living situation today? I have a pradeep place to live 11/08/2024 Education Answer Date Recorded What is the highest level of school you have completed or the highest degree you have received? 12th grade 10/18/2022 Sex and Gender Information Value Date Recorded Sex Assigned at Male 06/26/2018 4:20 PM GEARMAN Legal Sex Male 3:33 AM GEARMAN Gender Identity Not on file Sexual Orientation Not on file Last Filed Vital Signs Vital Sign Reading Time Taken Comments Blood Pressure 127/38 11/12/2024 9:01 AM CDT Pulse 69 11/12/2024 9:01 AM CDT Temperature 36.2 C (97.1 F) 11/12/2024 9:01 AM CDT Respiratory Rate 14 10/24/2024 9:36 AM CDT Oxygen Saturation 94% 11/12/2024 9:01 AM CDT Inhaled Oxygen Concentration - - Weight 115 kg (252 lb 6.8 oz) 11/12/2024 9:01 AM CDT Height 182.9 cm (6' 0.01) 09/15/2024 3:21 PM CS T Body Mass Index 34.23 09/15/2024 3:21 PM GEARMAN Plan of Treatment Upcoming Encounters Date Type Department Care Team (Late st Contact Info) Description 02/06/2025 9:00 AM CDT Appointment Department of Radiology in [place], [place] [address], [place] [phone] Pablo Vo M.D. [address] [place] [phone] 02/11/2025 2:40 PM CDT Office Visit Department of Oncology in [place], [place] [address], [place] [phone] Pablo Vo M.D. [address] [place] [address] Health Maintenance Due Date Last Done Comments [...] 2024 05/17/2024, 11/21/2023, 05/16/2023, Additional history exists Visit: Medicare Annual Wellness 02/07/2025 02/07/2024 Potassium Level 10/29/2025 10/29/2024, 08/25, 09/02/2024, Additional history exists Sodium Level 10/29/2025 10/29/2024, 08/25, 09/02/2024, Additional history exists Creatinine Level (Kidney Function Test) 11/12/2025 11/12/2024, 10/29/2024, 09/15/2024, Additional history exists Office Visit for Blood Pressure Check / Re-check 11/12/2025 11/12/2024 Fasting Glucose for Diabetes Screening 10/30/2027 10/29/2024, 09/15/2024, 09/02/2024, Additional history exists DTaP,Tdap,and Td Vaccines (3 - Td or Tdap) 04/08/2029 04/08/2019, 08/21/2009, 08/16/1999 Lipid (Cholesterol) Screening 11/05/2029 11/05/2024, 10/25/2021, 04/06/2020, Additional history exists Zoster Vaccines Completed 03/09/2018, 12/22, 08/21/2009 Pneumococcal vaccine (50+ years) Completed 03/21/2019, 04/21/2015, 08/03/2011 Influenza Vaccine Completed 05/17/2024, , 05/08/2003, Additional history exists RSV vaccine - (32-36 weeks) or 60+ years Completed 05/17/2024 Abdominal Aortic Aneurysm (AAA) Screen Completed 09/15/2024, 09/02/2024, 08/08/2024, Additional history exists Fall Risk Screen (Annual) Completed 10/24/2024 IPV Vaccines Aged Out No longer eligi ble based on patient's age to complete this topic Medical Devices Implanted Type Area Rotor Plate Washer Device Identifier Shelf Expiration Date Model / Serial / Lot Scrw St 24pthrd 8.0x105 - [id number] Implanted:Qty : 1 on 12/15/2022 by Jana Don M.D. at [facility] Hardware e.g. pins/screws/ rods Right: [employer] [id number] / / Scrw Vthrd Fast 7.0x105 - [id number] Implanted:Qty : 2 on 12/15/2022 by Jana Don M.D. at [facility] Hardware e.g. pins/screws/ rods Right: [employer] [id number] / / Washr Flt 1.5x13 - [id number] Implanted:Qty : 4 on 12/15/2022 by Jana Don M.D. at [facility] Hardware e.g. pins/screws/ rods Right: [employer] [id number] / / Procedures Procedure Name Priority Date/Time Associated Diagnosis Comments US LOWER EXTREMITY VEINS BILATERAL RAD - Routine (most inpatients and all outpatients) 11/14/2024 9:43 AM CDT Embolus Pulmonary (HCC) Acute Embolism And Thrombosis Of Other Specified Deep Vein Of Lower Extremity Bilateral (HCC) CT CHEST ANGIOGRAM AND PULMONARY ARTERIES WITH IV CONTRAST RAD - Routine (most inpatients and all outpatients) 11/14/2024 8:59 AM CDT Embolus Pulmonary (HCC) Acute Embolism And Thrombosis Of Other Specified Deep Vein Of Lower Extremity Bilateral (HCC) CREATININE WITH EGFR, S/P Routine 11/12/2024 10:32 AM CDT Embolus Pulmonary (HCC) Acute Embolism And Thrombosis Of Other Specified Deep Vein Of Lower Extremity Bilateral (HCC) ECHO STRESS 2D WITH COLOR, DOPPLER AND CONTRAST Routine 11/06/2024 10:03 AM CDT Cholecystitis Preoperative Examination Cardiovascular Hyperlipidemia On Treatment Atherosclerotic Heart Disease Of [place] Coronary Artery Without Angina Pectoris LIPID PANEL, S Routine 11/05/2024 9:32 AM CDT Cholecystitis Preoperative Examination Cardiovascular Hyperlipidemia On Treatment Atherosclerotic Heart Disease Of [place] Coronary Artery Without Angina Pectoris ECG Routine 11/05/2024 7:43 AM CDT Cholecystitis IR PERCUTANEOUS CHOLECYSTOSTOMY TUBE EXCHANGE RAD - Routine (most inpatients and all outpatients) 10/24/2024 10:18 AM CDT Cholecystitis FUNGAL CULTURE, ROUTINE Timed 10/24/2024 10:09 AM CDT BACTERIAL CULTURE, ANAEROBIC + SUSC Timed 10/24/2024 10:09 AM CDT GRAM STAIN Timed 10/24/2024 10:09 AM CDT BACTERIAL CULTURE, AEROBIC + SUSC Timed 10/24/2024 10:09 AM CDT IR PERCUTANEOUS CHOLECYSTOSTOMY TUBE EXCHANGE RAD - Routine (most inpatients and all outpatients) 10/01/2024 11:[address] ABDOMEN PELVIS WITH IV CONTRAST RAD - Semiurgent (Fast; most ED patients; some inpatients) 09/15/2024 1:13 PM GEARMAN COMPREHENSIVE METABOLIC PANEL, S/P STAT 09/15/2024 12:38 PM GEARMAN CBC WITH DIFFERENTIAL, B STAT 09/15/2024 12:38 PM GEARMAN HC URINALYSIS AUTO WO MICRO STAT 09/02/2024 4:11 PM GEARMAN URINALYSIS WITH MICROSCOPIC IF INDICATED, U STAT 09/02/2024 4:[address] ABDOMEN PELVIS WITH IV CONTRAST RAD - Semiurgent (Fast; most ED patients; some inpatients) 09/02/2024 1:46 PM GEARMAN LIPASE, S/P STAT 09/02/2024 1:00 PM GEARMAN COMPREHENSIVE METABOLIC PANEL, S/P STAT 09/02/2024 1:00 PM GEARMAN CBC WITH DIFFERENTIAL, B STAT 09/02/2024 1:00 PM GEARMAN from Last 3 Months Results * US Lower Extremity Veins Bilateral [...] and management can be found on the [employer] site. Link [email or web address]/[email or web address] Procedure Note Codey Saavedra M.D. - 11/14/2024 [...] thrombosis and management can be found on the[employer]MaMindEdge[employer] site. [email or web address] 1725 IMPRESSION: Negative for acute DVT. Pablo Vo M.D. IMG US PROCEDURES Final [...] Signs of right ventricular dysfunction are absent. us Pablo Vo M.D. IMG CT PROCEDURES Final Result * Creatinine with [...] Vo M.D. LAB BLOOD ADD-ON Final Result [facility] [address] [place] [address], [facility] [place] [address] [place] [address] * ECHO STRESS 2D WITH COLOR, DOPPLER [...] per Echocardiography Contrast Administration Protocol Reference Document [id number] Rev 11/04/2021. Patient met an inclusion criterion [...] administered per EchocardiographyContrast Administration Protocol Reference Document [id number] Rev11/04/2021. Patient met an inclusion criterion and [...] Li M.D. LAB BLOOD ADD-ON Final Result [facility] [address] [place] [address], [facility] [place] [address] [place] [address] * ECG 12 Lead (11/05/2024 7:43 AM CDT) Ventricular Rate ECG/Min 62 BPM MUSE MS Interval 210 ms MUSE QRSD Interval 102 ms MUSE QT Interval 396 ms MUSE QTC Interval 401 ms MUSE P [place] 52 degrees MUSE R [place] -16 degrees MUSE T Wave [place] 46 degrees MUSE 11/05/2024 7:43 AM CDT [...] ECG ORDERABLES Final Resul t MUSE NA * IR Percutaneous Cholecystostomy Tube Exchange (10/24/2024 10:18 AM CDT) Only the most recent of2 resultswithin the time period is included. Anatomical Region Laterality Modality Abdomen, Vascular Interventi [...] medications. Patient education provided by a care associate team physician. Patient was ready to learn with no apparent learning barriers were identified. Post-procedure care explained; patient expressed understanding of the content. PROCEDURE DETAILS: Sedation: None. Sedation time: Not applicable. Estimated Blood Loss: Less than 10 mL. TECHNIQUE: Imaging guidance for catheter exchange: Fluoroscopy with permanent image storage Access side: Right lateral abdomen intercostal transhepatic Catheter: 14 K[place] 25 cm multipurpose pigtail drain Technique: The indwelling 12 Kyrgyz catheter was injected with contrast. A guidewire was inserted through the catheter, and the catheter was exchanged for a new 47 Kyr[place]z catheter. Contrast was injected confirming the location [...] routine catheter exchange. Catheter upsized to 14 Kyr[place]z. If patient remains not a surgical candidate, [...] medications. Patient education provided by a care associate team physician. Patient was ready to learn withno apparent learning barriers were identified. Post-procedure careexplained; patient expressed understanding of the content. PROCEDURE DETAILS: Sedation: None. Sedation time: Not applicable. Estimated Blood Loss: Less than 10 mL. TECHNIQUE: Imaging guidance for catheter exchange: Fluoroscopy with permanent imagestorage Access side: Right lateral abdomen intercostal transhepatic Catheter: 14 Kyr[place]z 25 cm multipurpose pigtail drain Technique: The indwelling 12 Kyr[place]z catheter was injected with contrast. Aguidewire was inserted through the catheter, and the catheter wasexchanged for a new 47 Kyrgyz catheter. Contrast was injected confirmingthe location of [...] a routine catheter exchange.Catheter upsized to 14 Kyr[place]z. If patient remains not a surgicalcandidate, may consider spyglass lithotripsy. IMPRESSION: Expedited exchange of the cholecystostomy catheter due to indwellingcatheter retraction. Catheter upsized due to frankly purulent bile withinthe gallbladder. Cystic duct is occluded on today's exam. Rafael Cisse P.A.-C., P.A. IMG IR PROCEDURES Nieves l Result * (ABNORMAL) Bacterial Culture, Aerobic + Susceptibility (10/24/2024 10:09 AM CDT) [facility] Bacterial Culture, Aerobic + Susc KLEBSIELLA PNEUMONIAE [...] Sulfamethoxazole SUSCEPTIBILITY, STACEY (MCG/ML) <=20 mcg/mL: Susceptible Anuel Nunn M.D. LAB MICROBIOLOGY - GENERAL OR DERABLES Final Result Performing Organization Address City/[facility]/ZIP Co de Phone Number [facility] [address] [place] [address], [facility] [place] [address] * (ABNORMAL) Gram Stain (10/24/2024 10:09 AM CDT) Gram Stain White blood cells, Many.(A) 10/24/2024 11:22 AM CDT MKTO Gram Stain GRAM POSITIVE COCCUS RESEMBLING STREPTOCOCCUS Moderate. (A) 10/24/2024 11:22 AM CDT MKTO Fluid (Gallbladder) 10/24/2024 10:09 AM CDT 10/24/2024 10:36 AM CDT Comment:Specimen Source Site : Fluid Anuel Nunn M.D. LAB MICROBIOLOGY - GENERAL OR DERABLES Final Result Performing Organization Address City/[facility]/ZIP Co de Phone Number [facility] [address] [place] [id number] [place] [address] * Bacterial Culture, Anaerobic + Susceptibility (10/24/2024 10:09 AM CDT) Bacterial Culture, Anaerobic No growth after 7 days of incubation. 10/31/2024 8:02 AM CDT [facility] Fluid (Gallbladder) 10/24/2024 10:09 AM CDT 10/24/2024 10:36 AM CDT Comment:Specimen Source Site : Fluid us Anuel Nunn M.D. LAB MICROBIOLOGY - GENERAL [place] [address] * CT Abdomen Pelvis with IV Contrast (09/15/2024 1:13 PM GEARMAN) Only the most recent of2 resultswithin the time period is included. Anatomical Region Laterality Modality Abdomen, Pelvis, Abdominal R ST LOS, Abdominal ARZ LOS, Abdominal FLA LOS N/A Computed Tomography 09/15/2024 1:11 PM GEARMAN Impressions 09/15/2024 2:46 PM GEARMAN 1. Cholecystostomy tube remains in place and gallbladder remains decompressed. 2. No findings of new pathology. Narrative 09/15/2024 2:46 PM GEARMAN EXAM: CT ABDOMEN PELVIS WITH IV CONTRAST COMPARISON: Abdomen/pelvis CT 09/02/2024 FINDINGS: Right upper quadrant percutaneous approach cholecystostomy tube remains in place within the gallbladder. The gallbladder is decompressed. Gallbladder wall thickening and mild adjacent fat stranding, similar to previous. Unchanged large hypoattenuating lesion in the right hepatic dome and multiple smaller hypoattenuating lesions in the liver since 09/02/2024. Nondilated common bile duct. Normal appearance spleen. Right adrenal nodule unchanged since previous. Multiple bilateral renal cysts, including 2 hyperdense cysts in the left kidney, likely reflecting proteinaceous or hemorrhagic contents. Nonobstructed bowel. Normal appendix. Eason catheter balloon in the decompressed urinary bladder. Aortoiliac atherosclerosis. Unchanged appearance of probable fat necrosis in the subcutaneous soft tissues overlying the sacroiliac joints. Degenerative changes of the spine and hip joints. Right proximal femur intramedullary screws. Procedure Note Anuel Mendiola M.D., M.S. - 09/15/2024 EXAM: CT ABDOMEN PELVIS WITH IV CONTRAST COMPARISON: Abdomen/pelvis CT 09/02/2024 FINDINGS: Right upper quadrant percutaneous approach cholecystostomy tube remains inplace within the gallbladder. The gallbladder is decompressed. Gallbladderwall thickening and mild adjacent fat stranding, similar to previous. Unchanged large hypoattenuating lesion in the right hepatic dome andmultiple smaller hypoattenuating lesions in the liver since 09/02/2024.Nondilated common bile duct. Normal appearance spleen. Right adrenalnodule unchanged since previous. Multiple bilateral renal cysts, including 2 hyperdense cysts in the left kidney,likely reflecting proteinaceous or hemorrhagic contents. Nonobstructedbowel. Normal appendix. Eason catheter balloon in the decompressed urinarybladder. Aortoiliac atherosclerosis. Unchanged appearance of probable fat necrosis in the subcutaneous softtissues overlying the sacroiliac joints. Degenerative changes of the spineand hip joints. Right proximal femur intramedullary screws. IMPRESSION: 1. Cholecystostomy tube remains in place and gallbladder remainsdecompressed. 2. No findings of new pathology. us Shara Kaplan D.O. Heidi CT PROCEDURES Final Res ult * (ABNORMAL) CBC with Differential, Blood (09/15/2024 12:38 PM GEARMAN) Only the most recent of2 resultswithin the time period is included. Hemoglobin 11.2(L) 13.2 - 16.6 g/dL 09/15/2024 12:54 PM GEARMAN MKTO Hematocrit 35.8(L) 38.3 - 48.6 % 09/15/2024 12:54 PM GEARMAN MKTO Erythrocytes 4.24(L) 4.35 - 5.65 x10(12)/L 09/15/2024 12:54 PM GEARMAN MKTO MCV 84.4 78.2 - 97.9 fL 09/15/2024 12:54 PM GEARMAN MKTO RBC Distrib Width 16.7(H) 11.8 - 14.5 % 09/15/2024 12:54 PM GEARMAN MKTO Platelet Count 194 135 - 317 x10(9)/L 09/15/2024 12:54 PM GEARMAN MKTO Leukocytes 9.2 3.4 - 9.6 x10(9)/L 09/15/2024 12:54 PM GEARMAN MKTO Neutrophils 6.85(H) 1.56 - 6.45 x10(9)/L 09/15/2024 12:54 PM GEARMAN MKTO Lymphocytes 1.47 0.95 - 3.07 x10(9)/L 09/15/2024 12:54 PM GEARMAN MKTO Monocytes 0.63 0.26 - 0.81 x10(9)/L 09/15/2024 12:54 PM GEARMAN MKTO Eosinophils 0.24 0.03 - 0.48 x10(9)/L 09/15/2024 12:54 PM GEARMAN MKTO Basophils <0.03 0.01 - 0.08 x10(9)/L 09/15/2024 12:54 PM GEARMAN MKTO Blood (Blood, Venous) 09/15/2024 12:38 PM GEARMAN 09/15/2024 12:49 PM GEARMAN Erlin Crocker D.O., M.S. LAB BLOOD ADD-ON Nieves l Result [facility] [address] [place] [address], [facility] MKTO [facility] in [place] [address] [place] [address] * (ABNORMAL) Comprehensive Metabolic Panel (09/15/2024 12:38 PM GEARMAN) Only the most recent of2 resultswithin the time period is included. Potassium, P 4.8 3.6 - 5.2 mmol/L 09/15/2024 1:09 PM GEARMAN MKTO Sodium, P 136 135 - 145 mmol/L 09/15/2024 1:09 PM GEARMAN MKTO Chloride, P 102 98 - 107 mmol/L 09/15/2024 1:09 PM GEARMAN MKTO Bicarbonate, P 23 22 - 29 mmol/L 09/15/2024 1:09 PM GEARMAN MKTO Anion Gap, P 11 7 - 15 09/15/2024 1:09 PM GEARMAN MKTO BUN (Blood Urea Nitrogen), P 34(H) 8 - 24 mg/dL 09/15/2024 1:09 PM GEARMAN MKTO Creatinine 0.96 0.74 - 1.35 mg/dL 09/15/2024 1:09 PM GEARMAN MKTO Estimated GFR (eGFR) 83 >=60 mL/min/BS A 09/15/2024 1:09 PM GEARMAN MKTO Comment: Estimated GFR calculated using the 2020 CKD_EPI creatinine equation. Calcium, Total, P 9.4 8.8 - 10.2 mg/dL 09/15/2024 1:09 PM GEARMAN MKTO Glucose, P 173(H) 70 - 140 mg/dL 09/15/2024 1:09 PM GEARMAN MKTO Protein, Total, P 6.4 6.3 - 7.9 g/dL 09/15/2024 1:09 PM GEARMAN MKTO Albumin, P 3.4(L) 3.5 - 5.0 g/dL 09/15/2024 1:09 PM GEARMAN MKTO Aspartate Aminotransferase (AST), P 27 8 - 48 U/L 09/15/2024 1:09 PM GEARMAN MKTO Alkaline Phosphatase, P 108 40 - 129 U/L 09/15/2024 1:09 PM GEARMAN MKTO Alanine Aminotransferase (ALT), P 29 7 - 55 U/L 09/15/2024 1:09 PM GEARMAN MKTO Bilirubin, Total, P <0.2 0.0 - 1.2 mg/dL 09/15/2024 1:09 PM GEARMAN MKTO Blood (Blood, Venous) 09/15/2024 12:38 PM GEARMAN 09/15/2024 12:49 PM GEARMAN us Erlin Crocker D.O., M.S. LAB BLOOD ADD-ON Nieves l Result [facility] [address] [place] [address], [facility] [place] [address] * (ABNORMAL) Urinalysis with Microscopic if Indicated: Urine, Midstream (09/02/2024 4:11 PM GEARMAN) Source Urine, Urine, Midstream 09/02/2024 4:24 PM GEARMAN MKTO Clarity Clear Clear 09/02/2024 4:24 PM GEARMAN MKTO Color Yellow 09/02/2024 4:24 PM GEARMAN MKTO Comment: ----REFERENCE VALUE---- Colorless Yellow Allyson Blood Trace(A) Negative 09/02/2024 4:24 PM GEARMAN MKTO Nitrite Negative Negative 09/02/2024 4:24 PM GEARMAN MKTO Leukocyte Esterase Trace(A) Negative 09/02/2024 4:24 PM GEARMAN MKTO Protein Negative mg/dL 09/02/2024 4:24 PM GEARMAN MKTO Comment: ----REFERENCE VALUE---- Negative Trace Glucose Negative Negative mg/dL 09/02/2024 4:24 PM GEARMAN MKTO Ketone Negative Negative mg/dL 09/02/2024 4:24 PM GEARMAN MKTO Bilirubin Negative Negative 09/02/2024 4:24 PM GEARMAN MKTO pH 5.5 5.0 - 8.0 09/02/2024 4:24 PM GEARMAN MKTO Specific [place] >1.035(A) 1.001 - 1.035 09/02/2024 4:24 PM GEARMAN MKTO Urobilinogen 1.0 0.2 - 1.0 mg/dL 09/02/2024 4:24 PM GEARMAN MKTO Urine (Urine, Midstream) 09/02/2024 4:11 PM GEARMAN 09/02/2024 4:16 PM GEARMAN us David Kumar D.O. LAB URINE ORDERABLES Final R esult [facility] [address] [place] [address], [facility] [place] [address] * (ABNORMAL) Microscopic Automated (09/02/2024 4:11 PM GEARMAN) White Blood Cells 11-20(A) /hpf 09/02/2024 4:26 PM GEARMAN MKTO Comment: ----REFERENCE VALUE---- Males: 0-3 Females: 0-10 Unknown: 0-10 Red Blood Cells Occ-2 0 - 2 /hpf 09/02/2024 4:26 PM GEARMAN MKTO Hyaline Casts 1-3 /lpf 09/02/2024 4:26 PM GEARMAN MKTO Bacteria Present(A) None Seen 09/02/2024 4:26 PM GEARMAN MKTO Urine 09/02/2024 4:11 PM GEARMAN 09/02/2024 4:16 PM GEARMAN us David Kumar D.O. LAB URINE ORDERABLES Final R esult Performing Organization Address [facility]/ZIP Co de Phone Number [facility] [address] [place] [address], [place] [address] * Lipase (09/02/2024 1:00 PM GEARMAN) Lipase, P 23 13 - 60 U/L 09/02/2024 1: 26 PM GEARMAN MKTO Blood (Blood, Venous) 09/02/2024 1:00 PM GEARMAN 09/02/2024 1:05 PM GEARMAN us David Kumar D.O. 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 [address] [place] [address] PCP - General 03/14/24
--- OUTSIDE RECORDS SUMMARY | 2024-11-16 12:14 | XMS_ITS | Encounter Summary ---
Author Organization [facility] Address [address] [place] [address] Care Team Providers Care Laborer Stores Name Role Phone Jeff Reyes M.D. Primary Care Provider [phone] Encounter Details Date Type Department Care Team (Late st Contact Info) Description 11/12/2024 Clinical Communication Department of Family Medicine, [facility], in [place], [place] [address] [place] [phone] Jeff Reyes M.D. [address] [place] [address] Social History Tobacco Use Types Packs/Day Years Used Date Smoking Tobacco: Former Cigarettes Q uit: 1977 Passive Smoke Exposure: Never Alcohol Use Standard Drinks/Week Comments Not Currently 1 (1 standard drink = 0.6 oz pur e alcohol) [facility] Utilities Answer Date Recorded In the past [...] often do you attend chur ch or shinto services? Never 10/18/2022 Do you belong to any clubs o r organizations such as religious groups, unions, fraternal or athletic groups, or [...] Answer Date Recorded PHQ-2 Score 0 02/07/2024 [facility] [place] of Occupat ional Health - Occupational Stress [...] living situation today? I have a [facility] place to live 11/08/2024 Education Answer Date Recorded What is the highest level of school you have completed or the highest degree you have received? 12th grade 10/18/2022 Sex and Gender Information Value Date Recorded Sex Assigned at Male 06/26/2018 4:20 PM SPANISH INSTRUCTOR Legal Sex Male 3:33 AM SPANISH INSTRUCTOR Gender Identity Not on file Sexual Orientation Not on file documented as of this encounter Plan of Treatment Upcoming Encounters Date Type Department Care Team (Late st Contact Info) Description 02/06/2025 9:00 AM CDT Appointment Department of Radiology in [place], [place] [address] [place] [address] Pablo Vo M.D. [address] [place] [phone] 02/11/2025 2:40 PM CDT Office Visit Department of Oncology in [place], [place] [address] [place] [address] Pablo Vo M.D. [address] [place] [phone] documented as of this encounter Visit Diagnoses Not on filedocumented in this encounter Additional Health Concerns Assessment Noted Time PHQ-9 Depression Total Score: 10 018 11:00 AM CDT documented as of this encounter Care Teams Laborer Stores Relationship Specialty Start Date End Date Jeff Reyes M.D. [address] [place] [phone] PCP - General 03/14/24 documented as of this encounter
--- OUTSIDE RECORDS SUMMARY | 2024-11-16 12:14 | XMS_ITS | Encounter Summary ---
Author Organization [facility] Address [address] [place] [address] Care Team Providers Care Sql Database Programmer Name Role Phone Jeff Reyes M.D. Primary Care Provider [phone] Reason for Referral * MRI/CAT/PET Scan (Routine) - Authorized Specialty Diagnoses / Procedures Referred By Jono donohue Referred To Contact Radiology Diagnoses Embolus Pulmonary (HCC) Procedures CT Chest Angiogram with IV Contrast Pablo Vo M.D. [address] [place] [address] Phone: tel: fax: [facility] Region Referral ID Status Reason Start Date Expiration Date V isits Requested Visits Authorized [id number] Authorized 11/14/2024 02/14/2026 1 1 Encounter Details Date Type Department Care Team (Late st Contact Info) Description 11/14/2024 Results Follow-Up Department of Oncology in [place], [place] [address] [place] [address] Pablo Vo M.D. [address] [place] [phone] CT Chest Angiogram and Pulmonary Arteries with IV Contrast Social History Tobacco Use Types Packs/Day Years Used Date Smoking Tobacco: Former Cigarettes Q uit: 1977 Passive Smoke Exposure: Never Alcohol Use Standard Drinks/Week Comments Not Currently 1 (1 standard drink = 0.6 oz pur e alcohol) [facility] Utilities Answer Date Recorded In the past 12 months has th e electric, gas, oil, or water company [...] any clubs o r organizations such as uatsdin groups, unions, fraternal or athletic groups, or [...] Answer Date Recorded PHQ-2 Score 0 02/07/2024 [facility] [place] of Occupat ional Health - Occupational Stress [...] Sex Assigned at Male 06/26/2018 4:20 PM ELASTIC YARN TWISTER Legal Sex Male 3:33 AM ELASTIC YARN TWISTER Gender Identity Not on file Sexual Orientation Not on file documented as of this encounter Plan of Treatment Upcoming Encounters Date Type Department Care Team (Late st Contact Info) Description 02/06/2025 9:00 AM CDT Appointment Department of Radiology in [place], [place] [address] [phone] Pablo Vo M.D. [address] [place] [phone] 02/11/2025 2:40 PM CDT Office Visit Department of Oncology in [place], [place] [address] [phone] Pablo Vo M.D. [address] [place] [phone] Scheduled Orders Name Type Priority Associated Diagnoses Orde r Schedule CT Chest Angiogram with IV Contrast Imaging RAD - Routine (most inpatients and all outpatients) Embolus Pulmonary (HCC) Expected: 02/11/2025, Expires: 02/13/2026 Creatinine with Estimated GFR Lab Routine Embolus Pulmonary (HCC) Expected: 02/10/2025 (Approximate), Expires: 11/14/2025 documented as of this encounter Visit Diagnoses Diagnosis Embolus Pulmonary (HCC)- Primary documented in this encounter Additional Health Concerns Assessment Noted Time PHQ-9 Depression Total Score: 10 018 11:00 AM CDT documented as of this encounter Care Teams Sql Database Programmer Relationship Specialty Start Date End Date Jeff Reyes M.D. [address] [place] [phone] PCP - General 03/14/24 documented as of this encounter
--- OUTSIDE RECORDS SUMMARY | 2024-11-16 12:14 | XMS_ITS | Encounter Summary ---
Author Organization [facility] Address [address] [place] [address] Care Team Providers Care Farm Equipment Technician Name Role Phone Jeff Reyes M.D. 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 [address] [place] [address] Phone: tel: fax: [facility] Region Referral ID Status Reason Start Date Expiration Date Visits Re quested Visits Authorized [id number] Closed 11/12/2024 02/12/2026 1 1 Reason for [...] IV Contrast Pablo Vo M.D. [address] [place] [address] Phone: tel: fax: [facility] Region Referral ID Status Reason Start Date Expiration Date Visits Re quested Visits Authorized [id number] Closed 11/12/2024 02/12/2026 1 1 Encounter Details Date Type Department Care Team (Latest Contact Info) Description 11/14/2024 8:23 AM CDT - 11/14/2024 8:44 AM CDT Hospital Encounter Department of Radiology in [place], [place] [address] [place] [phone] Pablo Vo M.D. 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 Never 10/18/2022 Do you belong to any clubs o r organizations such as presybeterian groups, unions, fraternal or athletic groups, or [...] Answer Date Recorded PHQ-2 Score 0 02/07/2024 [facility] of Occupat ional Health - Occupational Stress [...] your living situation today? I have a [facility] place to live 11/08/2024 Education Answer Date Recorded What is the highest level of school you have completed or the highest degree you have received? 12th grade 10/18/2022 Sex and Gender Information Value Date Recorded Sex Assigned at Male 06/26/2018 4:20 PM DIRECTOR BUSINESS DEVELOPMENT Legal Sex Male 3:33 AM DIRECTOR BUSINESS DEVELOPMENT Gender Identity Not on file [...] AM CDT Appointment Department of Radiology in [place], [place] [address] [address] Pablo Vo M.D. [address] [place] [phone] 02/11/2025 2:40 PM CDT Office Visit Department of Oncology in [place], [place] [address] [phone] Pablo Vo M.D. [address] [place] [phone] documented as of this encounter Procedures Procedure [...] ventricular dysfunction are absent. Pablo Vo M.D. Heidi CT PROCEDURES Final Result documented in this [...] documented as of this encounter Care Teams Farm Equipment Technician Relationship Specialty Start Date End Date Jeff Reyes M.D. [address] [place] [phone] PCP - General 03/14/24 documented as of this encounter
--- NOTE | 2024-11-16 12:52 | CRLHL7_ITS ---
For Patients: As a result of the Century Cures Act, medical imaging exams and procedure reports are released immediately into your electronic medical record. You may view this report before your referring provider. If you have questions, please contact your health care provider. INDICATION: Fever. History of cholecystitis with percutaneous cholecystostomy tube. COMPARISON: 08/30/2024 MRI of the abdomen TECHNIQUE: CT of the abdomen and pelvis with intravenous contrast (132 milliliters Isovue 370). FINDINGS: Lung bases: No pleural effusion. Liver: Smooth hepatic contour. Indeterminate hypoattenuating lesion in the hepatic dome measuring 6.5 centimeters (2/22) and indeterminate hypoattenuating lesion in hepatic segment 7 measuring 1 centimeter (2/37) are unchanged in size since 08/07/2024, although the hepatic dome lesion has decreased in attenuation since 08/07/2024 and now demonstrates mostly water attenuation aside from a unchanged 1 centimeter hyperattenuating nodule at its anterior aspect. Gallbladder and biliary tree: The gallbladder has been decompressed with a percutaneous cholecystostomy tube. There is mild pericholecystic fat stranding. Spleen: Mild splenomegaly. Pancreas: Normal. Adrenal glands: Mild nodular thickening of the right adrenal gland is unchanged. Normal left adrenal. Kidneys and ureters: No hydroureteronephrosis. There are several bilateral simple renal cysts as well as a few hypoattenuating left renal lesions which were reported to represent proteinaceous/hemorrhagic cysts on the comparison MRI. Bladder: The bladder has been decompressed with a Eason catheter. There is trace gas in the bladder presumably due to instrumentation. Visualized reproductive organs: Unremarkable CT appearance. Gastrointestinal tract: No focal abnormally dilated loops of bowel. Normal appendix. Peritoneal cavity: No free fluid or free air. Lymph nodes: Similar mildly enlarged right upper abdominal quadrant lymph nodes such as a 15 millimeter peripancreatic node (2/56). Vessels: No abdominal aortic aneurysm. Moderate to severe atherosclerotic vascular calcifications. Abdominal and pelvic wall: There is a 8.2 centimeter lobulated lesion with central mostly fat attenuation, peripheral soft tissue attenuation, and multiple septations in the subcutaneous fat of the left paramidline posterior pelvis which is grossly similar since a 08/07/2024 CT of the abdomen, possibly representing fat necrosis or postoperative change (2/136). There is also some scarring at the posterior aspect of the right paramidline pelvic subcutaneous fat. Tiny fat containing umbilical hernia. Status post percutaneous cholecystostomy. Partially imaged gynecomastia. Bones: There are osseous degenerative changes. Multiple old left-sided rib fractures. Status post right proximal femur ORIF. IMPRESSION: 1. No acute findings in the abdomen or pelvis. 2. The gallbladder is decompressed by a percutaneous cholecystostomy tube. There is mild pericholecystic fat stranding. 3. Two indeterminate hepatic lesions are similar since and more fully characterized on the 08/30/2024 MRI. 4. Similar mildly enlarged right upper abdominal quadrant lymph nodes. 5. There is a 8.2 centimeter lobulated lesion with central mostly fat attenuation, peripheral soft tissue attenuation, and multiple septations in the subcutaneous fat of the left paramidline posterior pelvis which is grossly similar since a 08/07/2024 CT of the abdomen, possibly representing fat necrosis or postoperative change. Correlate with clinical history. 6. Several additional chronic and incidental findings are detailed above. Please note that all CT scans at this facility use dose modulation, iterative reconstruction, and/or weight-based dosing when appropriate to reduce radiation dose to as low as reasonably achievable. Dictated by Pedro Madrigal MD @ 11/16/2024 3:02:08 PM (Electronically Signed)
--- NOTE | 2024-11-16 12:52 | CRLHL7_ITS ---
For Patients: As a result of the Century Cures Act, medical imaging exams and procedure reports are released immediately into your electronic medical record. You may view this report before your referring provider. If you have questions, please contact your health care provider. Indication: : Fever TECHNIQUE: Single-view chest. FINDINGS: The lungs are clear. The heart, mediastinum and pulmonary vessels are of normal size. There is no evidence of pleural disease. Low lung volumes. IMPRESSION: Negative chest. Dictated by Billie Headley MD @ 11/16/2024 2:41:22 PM (Electronically Signed)
[2024-11-16 13:03] LABS: Appearance Urine Cloudy (Clear); Bilirubin Urine Negative (Negative); Blood Urine 3+ (Negative); Color Urine Dark yellow (Yellow); Glucose Urine Negative (Negative); Ketones Urine Negative (Negative); Leukocyte Esterase Urine 1+ (Negative); Nitrite Urine Positive (Negative); Protein Urine 2+ (Negative)
--- OUTSIDE RECORDS SUMMARY | 2024-11-16 13:12 | XMS_ITS | Clinical Summary ---
Author Organization [facility] Address [address] [place] [address] Care Team Providers Care Glass Processing Worker Name Role Phone Birdie Taveras RN Unavailable [phone] Karrie Singer RN Unavailable [phone] Clinic, No Pcp Or Primary Care Provider Unavaila ble Allergies Active Allergy Reactions Criticality Noted Date Comments Vancomycin vancomycin infusion reaction (cutaneous flushing/non-allergic reaction) Medium 05/26/2018 Red Man Syndrome Encounters Date Type Department Care Team Description 11/14/2024 8:30 AM CDT - 11/14/2024 11:59 PM CDT Hospital Encounter 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 [address] [place] [address] Procedures Procedure Name Priority Date/Time Associated Diagnosis [...] WITH AUTO DIFFERENTIAL Routine 08/27/2024 8:35 AM STATISTICAL DEVELOPER Cholecystitis, unspecified BASIC METABOLIC PANEL Routine 08/27/2024 8:35 AM STATISTICAL DEVELOPER Cholecystitis, unspecified CBC WITH AUTO DIFFERENTIAL Routine 08/27/2024 8:35 AM STATISTICAL DEVELOPER Cholecystitis, unspecified from Last 3 Months Results * CT CHEST PE STUDY (11/14/2024 9:06 AM CDT) Anatomical Region Laterality Modality CHEST, THORAX, HEART Computed To mography Pablo Vo [facility] CT Fin al Result * SCAN-RADIOLOGY REPORT (11/14/2024 12:00 AM CDT) Anatomical Region Laterality Modality Computed Tomogra phy us Scanner OTHER Final Result * (ABNORMAL) CBC WITH AUTO DIFFERENTIAL (10/29/2024 7:37 AM CDT) Only the most recent of2 resultswithin the time period is included. WHITE BLOOD COUNT 8.2 4.5 - 11.0 thou/cu mm 10/29/2024 8:[address] [facility] RED BLOOD COUNT 4.44 4.30 - 5.90 mil/cu mm 10/29/2024 8:[address] [facility] HEMOGLOBIN 11.7(L) 13.5 - 17.5 g/dL 10/29/2024 8:[address] [facility] HEMATOCRIT 39.1 37.0 - 53.0 % 10/29/2024 8:[address] [facility] MCV 88 80 - 100 fL 10/29/2024 8:[address] [facility] MCH 26.4 26.0 - 34.0 pg 10/29/2024 8:[address] [facility] MCHC 29.9(L) 32.0 - 36.0 g/dL 10/29/2024 8:[address] [facility] RDW 18.5(H) 11.5 - 15.5 % 10/29/2024 8:[address] [facility] PLATELET COUNT 180 140 - 440 thou/cu mm 10/29/2024 8:[address] [facility] MPV 9.3 6.5 - 11.0 fL 10/29/2024 8:[address] [facility] % NEUT 71.0 % 10/29/2024 8:[address] [facility] % LYMPH 19.9 % 10/29/2024 8:38 AM CDT [facility] % MONO 5.6 % 10/29/2024 8:38 AM CDT [facility] % EOS 3.4 % 10/29/2024 8:38 AM CDT [facility] % BASO 0.1 % 10/29/2024 8:38 AM CDT [facility] ABSOLUTE NEUTROPHILS 5.9 1.7 - 7.0 thou/cu mm 10/29/2024 8:38 AM CDT [facility] ABSOLUTE LYMPHOCYTES 1.6 0.9 - 2.9 thou/cu mm 10/29/2024 8:38 AM CDT [facility] ABSOLUTE MONOCYTES 0.5 <0.9 thou/cu mm 10/29/2024 8:38 AM CDT [facility] ABSOLUTE EOSINOPHILS 0.3 <0.5 thou/cu mm 10/29/2024 8:38 AM CDT [facility] ABSOLUTE BASOPHILS 0.0 <0.3 thou/cu mm 10/29/2024 8:38 AM CDT [facility] Blood BLOOD SPECIMEN / Unknown Butterfly / Unknown 10/29/2024 7:37 AM CDT 10/29/2024 8:31 AM CDT us Carmenza Quiroz NP HEMATOLOGY Final Resul t [facility] [address] [place] [address] * (ABNORMAL) HEMOGLOBIN A1C (10/29/2024 7:37 AM CDT) HEMOGLOBIN A1C SCREENING 7.4(H) <=6.4 % 10/29/2024 8:39 AM CDT [facility] Blood BLOOD SPECIMEN / Unknown Butterfly / Unknown 10/29/2024 7:37 AM CDT 10/29/2024 8:31 AM CDT Narrative [facility] - 10/29/2024 8:39 AM CDT (<5.7%) Normal (5.7% to 6.4%) Indicates prediabetes (>=6.5%) Confirms diabetes Falsely low levels may be seen with: Recent Transfusion, Recent Significant Blood Loss, Hemolytic Diseases, or Falsely elevated levels may be seen with: Untreated Anemias, Splenectomy us Carmenza Quiroz INDUSTRIAL ENG CHEMISTRY Final Resul t [facility] [address] [place] [address] * (ABNORMAL) BASIC METABOLIC PANEL (10/29/2024 7:37 AM CDT) Only the most recent of2 resultswithin the time period is included. SODIUM 139 136 - 145 mmol/L 10/29/2024 8:[address] [facility] POTASSIUM 4.3 3.5 - 5.1 mmol/L 10/29/2024 8:[address] [facility] CHLORIDE 101 98 - 107 mmol/L 10/29/2024 8:[address] [facility] CO2,TOTAL 26 22 - 29 mmol/L 10/29/2024 8:[address] [facility] ANION GAP 12 5 - 18 10/29/2024 8:[address] [facility] GLUCOSE 179(H) 70 - 99 mg/dL 10/29/2024 8:[address] [facility] CALCIUM 10.0 8.8 - 10.4 mg/dL 10/29/2024 8:[address] [facility] Comment: Reference ranges for this test were updated on 05/28/2024 to reflect our healthy population more accurately. Reference range changes are not retroactively applied to results, but previous results using the same methodology can be interpreted in the context of the new reference range. BUN 21 8 - 23 mg/dL 10/29/2024 8:[address] [facility] CREATININE 0.94 0.70 - 1.20 mg/dL 10/29/2024 8:[address] [facility] BUN/CREAT RATIO 22(H) 10 - 20 8:[address] [facility] eGFR 85(L) >90 mL/min/1. 73m2 10/29/2024 8:57 AM T [facility] Comment:As of 2021, eG FR [...] Carmenza Quiroz NP CHEMISTRY Final Resul t [facility] [address] [place] [address] from Last 3 Months Insurance [employer] [facility] [employer] [facility] Care Teams Glass Processing Worker Relationship Specialty Start Date End Date Clinic, No Pcp Or . PCP - General 07/31/23 Birdie Taveras, RN [address] [facility] [address] [place], [place] [phone] Rock Crushing Machine Operator - [facility] Registered Nurse 07/24/23 Karrie Singer RN [address] [facility] [address] [place], [place] [phone] Rock Crushing Machine Operator - [facility] Registered Nurse 07/24/23
--- OUTSIDE RECORDS SUMMARY | 2024-11-16 13:13 | XMS_ITS | Encounter Summary ---
Author Organization [facility] Address [address] [place] [address] Care Team Providers Care Produce Field Merchandiser Name Role Phone Jeff Reyes M.D. Primary Care Provider [phone] Reason for Visit * Reason Onset Date Comments Blanca Tube Follow Up 10/23/2024 Encounter Details Date Type Department Care Team (Latest Contact Info) Description 10/23/2024 Clinical Communication Department of Radiology in [place], [place] [address] [place] [phone] Anuel Nunn M.D. [facility] [place] [phone] Blanca Tube Follow Up Social History Tobacco Use Types Packs/Day Years Used Date Smoking Tobacco: Former Cigarettes Q uit: 1977 Passive Smoke Exposure: Never Alcohol Use Standard Drinks/Week Comments Not Currently 1 (1 standard drink = 0.6 oz pur e alcohol) [facility] Utilities Answer Date Recorded In the [...] any clubs o r organizations such as pentecostal groups, unions, fraternal or athletic groups, or [...] Answer Date Recorded PHQ-2 Score 0 02/07/2024 [facility] [place] of Occupat ional Health - Occupational Stress [...] your living situation today? I have a [facility] place to live 08/08/2024 Education Answer Date Recorded What is the highest level of school you have completed or the highest degree you have received? 12th grade 10/18/2022 Sex and Gender Information Value Date Recorded Sex Assigned at Male 06/26/2018 4:20 PM PHYSICAL THER Legal Sex Male 3:33 AM PHYSICAL THER Gender Identity Not on file Sexual Orientation [...] Fuentes R.N. - 10/23/2024 3:08 PM CDT Starter Mechanic reached out to Bekah, customer care specialist from [facility] regarding some concerns she had with patient's blanca tube coming out and not flushing properly. Starter Mechanic left a VM asking theyphone IR clinic nursing back to come up with a plan. Contact phone number left. Electronically signed by: Katiuska Fuentes R.N. 10/23/24 3:10 PM CDT documented in this encounter Plan of Treatment Upcoming Encounters Date Type Department Care Team (Late st Contact Info) Description 02/06/2025 9:00 AM CDT Appointment Department of Radiology in [place], [place] [address] [address] Pablo Vo M.D. [address] [place] [phone] 02/11/2025 2:40 PM CDT Office Visit Department of Oncology in [place], [place] [address] [place] [phone] Pablo Vo M.D. [address] [place] [address] documented as of this encounter Visit Diagnoses Not on filedocumented in this encounter Additional Health Concerns Infection Onset Date Last Indicated Resolved Time MDR GNB 10/24/2024 10/24/2024 10/27/2024 6:33 AM CDT Assessment Noted Time PHQ-9 Depression Total Score: 10 018 11:00 AM CDT documented as of this encounter Care Teams Produce Field Merchandiser Relationship Specialty Start Date End Date Jeff Reyes M.D. [address] [place] [phone] PCP - General 03/14/24 documented as of this encounter
--- OUTSIDE RECORDS SUMMARY | 2024-11-16 13:13 | XMS_ITS | Encounter Summary ---
Author Organization [facility] Address [address] [place] [address] Care Team Providers Care Chief Business Development Officer Name Role Phone Jeff Reyes M.D. Primary Care Provider [phone] Reason for Referral * Outpatient (Routine) - Closed Specialty Diagnoses / Procedures Referred By Contac t Referred To Contact Diagnoses Cholecystitis Procedures ECG 12 Lead Roland Benson D.O. [address] [place] [address] Phone: tel: fax: [facility] Referral ID Status Reason Start Date Expiration Date Visits Re quested Visits Authorized [id number] Closed 09/20/2024 12/21/2025 1 1 Reason for Visit * Outpatient (Routine) - Closed Specialty Diagnoses / Procedures Referred By Contac t Referred To Contact Diagnoses Cholecystitis Procedures ECG 12 Lead Roland Benson D.OAmparo [address] [place] [address] Phone: tel: fax: [facility] Referral ID Status Reason Start Date Expiration Date Visits Re quested Visits Authorized [id number] Closed 09/20/2024 12/21/2025 1 1 Encounter Details Date Type Department Care Team (Latest Contact Info) Description 11/05/2024 7:35 AM CDT - 11/05/2024 9:23 AM CDT Hospital Encounter Department of Laboratory Medicine in [place], [place] [address] [place] [address] Roland Benson D.O. [address] [place] [address] Cholecystitis Discharge Disposition: Home or Self Care Social History Tobacco Use Types Packs/Day Years Used Date Smoking Tobacco: Former Cigarettes Q uit: 1977 Passive Smoke Exposure: Never Alcohol Use Standard Drinks/Week Comments Not Currently 1 (1 standard drink = 0.6 oz pur e alcohol) [facility] Utilities Answer Date Recorded In the past 12 months has e [employer], gas, oil, or water [employer] threatened to shut off services in your [...] often do you attend chur ch or judaism services? Never 10/18/2022 Do you belong to [...] Answer Date Recorded PHQ-2 Score 0 02/07/2024 [facility] - Occupational Stress Questionnaire Answer Date Recorded [...] living situation today? I have a [facility] place to live 08/08/2024 Education Answer Date Recorded What is the highest level of school you have completed or the highest degree you have received? 12th grade 10/18/2022 Sex and Gender Information Value Date Recorded Sex Assigned at Male 06/26/2018 4:20 PM PERSONAL LINES ADVISOR Legal Sex Male 3:33 AM PERSONAL LINES ADVISOR Gender Identity Not on file Sexual Orientation [...] AM CDT Appointment Department of Radiology in [place], [place] [address] [place] [phone] Pablo Vo M.D. [address] [place] [phone] 02/11/2025 2:40 PM CDT Office Visit Department of Oncology in [place], [place] [address] [place] [address] Pablo Vo M.D. [address] [place] [phone] documented as of this encounter Procedures Procedure Name Priority Date/Time Associated Diagnosis Comments ECG Routine 11/05/2024 7:43 AM CDT Cholecystitis documented in this encounter Results * ECG 12 Lead (11/05/2024 7:43 AM CDT) Ventricular Rate ECG/Min 62 BPM MUSE MD Interval 210 ms MUSE QRSD Interval 102 ms MUSE QT Interval 396 ms MUSE QTC Interval 401 ms MUSE P [place] 52 degrees MUSE R [place] -16 degrees MUSE T Wave [place] 46 degrees MUSE 11/05/2024 7:43 AM CDT [...] documented as of this encounter Care Teams Chief Business Development Officer Relationship Specialty Start Date End Date Jeff Reyes M.D. [address] [place] [phone] PCP - General 03/14/24 documented as of this encounter
--- OUTSIDE RECORDS SUMMARY | 2024-11-16 13:13 | XMS_ITS | Encounter Summary ---
Author Organization [facility] Address [address] [place] [address] Care Team Providers Care Adobe Architect Name Role Phone Jeff Reyes M.D. Primary Care Provider [phone] Reason for Referral * Outpatient (Routine) - Closed Specialty Diagnoses / Procedures Referred By Jono donohue Referred To Contact Cardiovascular Disease Thaddeus Li M.D. [address] [place] [address] Phone: tel: fax: [facility] Referral ID Status Reason Start Date Expiration Date Visits Re quested Visits Authorized [id number] Closed 11/05/2024 05/07/2026 1 1 * Cardiovascular-Diagnostic (Routine) - Closed Specialty Diagnoses / Procedures Referred By Jono donohue Referred To Contact Diagnoses Cholecystitis Preoperative Examination Cardiovascular Hyperlipidemia On Treatment Atherosclerotic Heart Disease Of [place] Coronary Artery Without Angina Pectoris Procedures Echo Stress Thaddeus Li M.D. [address] [place] [address] Phone: tel: fax: [facility] Referral ID Status Reason Start Date Expiration Date Visits Re quested Visits Authorized [id number] Closed 11/05/2024 02/05/2026 1 1 Reason for Visit * Reason Comments Consult * Outpatient (Routine) - Closed Specialty Diagnoses / Procedures Referred By Contact Referred To Contact Cardiovascular Diseases / Cardiovascular Disease Diagnoses Cholecystitis Roland Benson D.O. [address] [place] [address] Phone: tel: fax: [facility] Region Referral ID Status Reason Start Date Expiration Date Visits Re quested Visits Authorized [id number] Closed 09/20/2024 03/22/2026 1 1 Encounter Details Date Type Department Care Team (Latest Contact Info) Description 11/05/2024 8:45 AM CDT Comprehensive Visit Department of Cardiovascular Diseases in [place], [place] [address] [place] [phone] Thaddeus Li M.D. [address] [place] [phone] Preoperative Examination Cardiovascular (Primary Dx); Cholecystitis; Hyperlipidemia On Treatment; Atherosclerotic Heart Disease Of [place] Coronary Artery Without Angina Pectoris Social History Tobacco Use Types Packs/Day Years Used Date Smoking Tobacco: Former Cigarettes Q uit: 1977 Passive Smoke Exposure: Never Tobacco Cessation:Counseling Given: Not Answered Alcohol Use Standard Drinks/Week Comments Not Currently 1 (1 standard drink = 0.6 oz pur e alcohol) [facility] Utilities Answer Date Recorded In the past 12 months has [facility] [employer], gas, oil, or water [employer] threatened to shut off services in your [...] How often do you attend chur or church services? Never 10/18/2022 Do you belong to any clubs o r organizations such as baptism groups, unions, fraternal or athletic groups, or [...] Answer Date Recorded PHQ-2 Score 0 02/07/2024 [facility] - Occupational Stress Questionnaire Answer Date [...] your living situation today? I have a [facility] place to live 11/08/2024 Education Answer Date Recorded What is the highest level of school you have completed or the highest degree you have received? 12th grade 10/18/2022 Sex and Gender Information Value Date Recorded Sex Assigned at Male 06/26/2018 4:20 PM CHEF'S ASSISTANT Legal Sex Male 3:33 AM CHEF'S ASSISTANT Gender Identity Not on file Sexual [...] Body Mass Index 34.17 09/15/2024 3:21 PM CHEF'S ASSISTANT documented in this encounter Patient Instructions * [...] understand that in the emergency room in [place], a DVT study was positive for a [...] SOCIAL HISTORY Mr. Ramirez currently lives in [facility] in [place], [place]. He has about a 17-tkak-srhs smoking history, quitting in 1978. He denies [...] to coordinate a dobutamine stress echocardiogram in [place] next available and then will coordinate a [...] Thaddeus Li M.D. CT CT Job ID: [id number] [1] Current Outpatient Medications: acetaminophen (TylenoL) 500 [...] AM CDT Appointment Department of Radiology in [place], [place] [address] [place] [phone] Pablo Vo M.D. [address] [facility] [place] [phone] 02/11/2025 2:40 PM CDT Office Visit Department of Oncology in [place], [place] [address] [place] [address] Pablo Vo M.D. [address] [facility] [place] [phone] Scheduled Referrals Name Type Priority Associated Diagnoses Order Schedule Cardiovascular Disease office visit (clinic) [facility] Region; General Outpatient Referral Routine Expected: [...] per Echocardiography Contrast Administration Protocol Reference Document [id number] Rev 11/04/2021. Patient met an inclusion criterion [...] administered per EchocardiographyContrast Administration Protocol Reference Document [id number] Rev11/04/2021. Patient met an inclusion criterion and [...] Li M.D. LAB BLOOD ADD-ON Final Result [facility] [address] [place] [address], [facility] [place] [address] [place] [address] documented in this encounter Visit Diagnoses Diagnosis Preoperative Examination Cardiovascular- Primary Cholecystitis Hyperlipidemia On Treatment Atherosclerotic Heart Disease Of [place] Coronary Artery Without Angina Pectoris Cholecystitis Preoperative Examination Cardiovascular Hyperlipidemia On Treatment Atherosclerotic Heart Disease [place] Coronary Artery Without Angina Pectoris documented in this encounter Additional Health Concerns Assessment Noted Time PHQ-9 Depression Total Score: 10 018 11:00 AM CDT documented as of this encounter Care Teams Adobe Architect Relationship Specialty Start Date End Date Jeff Reyes M.D. [address] [place] [address] PCP - General 03/14/24 documented as of this encounter
[2024-11-16 13:14] LABS: pH Urine >= 9.0 (5.0-8.5)
--- OUTSIDE RECORDS SUMMARY | 2024-11-16 13:14 | XMS_ITS | Encounter Summary ---
Author Organization [facility] Address [address] [place] [address] Care Team Providers Care Email Marketing Specialist Name Role Phone Jeff Reyes M.D. Primary Care Provider [phone] Reason for Visit * Outpatient (Routine) - Closed Specialty Diagnoses / Procedures Referred By Jono donohue Referred To Contact Cardiovascular Disease Thaddeus Li M.D. [address] [place] [address] Phone: tel: fax: [facility] Referral ID Status Reason Start Date Expiration Date Visits Re quested Visits Authorized [id number] Closed 11/05/2024 05/07/2026 1 1 Encounter Details Date Type Department Care Team (Latest Contact Info) Description 11/08/2024 10:45 AM CDT Virtual Visit Department of Cardiovascular Diseases in [place], [place] [address] [place] [phone] Thaddeus Li M.D. [address] [place] [address] Hyperlipidemia On Treatment (Primary Dx); Atherosclerotic Heart Disease Of [place] Coronary Artery Without Angina Pectoris; Preoperative Examination Cardiovascular; Embolus Pulmonary (HCC) Social History Tobacco Use Types Packs/Day Years Used Date Smoking Tobacco: Former Cigarettes Q uit: 1977 Passive Smoke Exposure: Never Alcohol Use Standard Drinks/Week Comments Not Currently 1 (1 standard drink = 0.6 oz pur e alcohol) [facility] Utilities Answer Date Recorded In [...] often do you attend chur ch or anglican services? Never 10/18/2022 Do you belong to [...] Answer Date Recorded PHQ-2 Score 0 02/07/2024 [facility] of Occupat ional Health - Occupational Stress [...] Sex Assigned at Male 06/26/2018 4:20 PM DISCOUNT CLERK Legal Sex Male 3:33 AM DISCOUNT CLERK Gender Identity Not on file Sexual Orientation Not on file documented as of this encounter Plan of Treatment Upcoming Encounters Date Type Department Care Team (Late st Contact Info) Description 02/06/2025 9:00 AM CDT Appointment Department of Radiology in [place], [place] [address] [place] [address] Pablo Vo M.D. [address] [facility] [place] [phone] 02/11/2025 2:40 PM CDT Office Visit Department of Oncology in [place], [place] [address] [place] [address] Pablo Vo M.D. [address] [facility] [place] [phone] Scheduled Orders Name Type Priority Associated Diagnoses Orde r Schedule Lipid Panel Lab Routine Hyperlipidemia On Treatment Atherosclerotic Heart Disease Of [place] Coronary Artery Without Angina Pectoris Expected: 02/07/2025, Expires: 02/07/2026 documented as of this encounter Visit Diagnoses Diagnosis Hyperlipidemia On Treatment- Primary Atherosclerotic Heart Disease Of [place] Coronary Artery Without Angina Pectoris Preoperative Examination Cardiovascular Embolus Pulmonary (HCC) documented in this encounter Additional Health Concerns Assessment Noted Time PHQ-9 Depression Total Score: 10 018 11:00 AM CDT documented as of this encounter Care Teams Email Marketing Specialist Relationship Specialty Start Date End Date Jeff Reyes M.D. [address] [place] [address] [place] [address] PCP - General 03/14/24 documented as of this encounter
--- OUTSIDE RECORDS SUMMARY | 2024-11-16 13:14 | XMS_ITS | Encounter Summary ---
Author Organization [facility] Address [address] [place] [address] Care Team Providers Care Office Technology Instructor Name Role Phone Jeff Reyes M.D. Primary Care Provider [phone] Encounter Details Date Type Department Care Team (Late st Contact Info) Description 10/22/2024 Clinical Communication Department of Oncology in [place], [place] [address] [place] [address] Pablo Vo M.D. [address] [place] [address] Social History Tobacco Use Types Packs/Day Years Used Date Smoking Tobacco: Former Cigarettes Q uit: 1977 Passive Smoke Exposure: Never Alcohol Use Standard Drinks/Week Comments Not Currently 1 (1 standard drink = 0.6 oz pur e alcohol) [facility] Utilities Answer Date Recorded In the past 12 months has [place], gas, oil, or water [employer] threatened to shut off services in your [...] any clubs o r organizations such as gnosticist groups, unions, fraternal or athletic groups, or [...] Recorded PHQ-2 Score 0 02/07/2024 [facility] of Occupat ional Health - Occupational [...] living situation today? I have a [facility] place to live 08/08/2024 Education Answer Date Recorded What is the highest level of school you have completed or the highest degree you have received? 12th grade 10/18/2022 Sex and Gender Information Value Date Recorded Sex Assigned at Male 06/26/2018 4:20 PM RUBBER HEEL AND SOLE PRESS TENDER Legal Sex Male 3:33 AM RUBBER HEEL AND SOLE PRESS TENDER Gender Identity Not on file Sexual Orientation Not on file documented as of this encounter Plan of Treatment Upcoming Encounters Date Type Department Care Team (Late st Contact Info) Description 02/06/2025 9:00 AM CDT Appointment Department of Radiology in [place], [place] [address] [place] [address] Pablo Vo M.D. [address] [place] [phone] 02/11/2025 2:40 PM CDT Office Visit Department of Oncology in [place], [place] [address] [place] [address] Pablo Vo M.D. [address] [facility] [place] [address] documented as of this encounter Visit Diagnoses Not on filedocumented in this encounter Additional Health Concerns Infection Onset Date Last Indicated Resolved Time MDR GNB 10/24/2024 10/24/2024 10/27/2024 6:33 AM CDT Assessment Noted Time PHQ-9 Depression Total Score: 10 018 11:00 AM CDT documented as of this encounter Care Teams Office Technology Instructor Relationship Specialty Start Date End Date Jeff Reyes M.D. [address] [place] [phone] PCP - General 03/14/24 documented as of this encounter
--- OUTSIDE RECORDS SUMMARY | 2024-11-16 13:14 | XMS_ITS | Encounter Summary ---
Author Organization [facility] Address [address] [place] [address] Care Team Providers Care Wet Process Miller Head Name Role Phone Jeff Reyes M.D. Primary Care Provider [phone] Reason for Referral * MRI/CAT/PET Scan (Routine) - Authorized Specialty Diagnoses / Procedures Referred By Jono donohue Referred To Contact Radiology Diagnoses Embolus Pulmonary (HCC) Procedures CT Chest Angiogram with IV Contrast Pablo Vo M.D. [address] [place] [address] Phone: tel: fax: [facility] Region Referral ID Status Reason Start Date Expiration Date V isits Requested Visits Authorized [id number] Authorized 11/14/2024 02/14/2026 1 1 Encounter Details Date Type Department Care Team (Late st Contact Info) Description 11/14/2024 Results Follow-Up Department of Oncology in [place], [place] [address] [place] [address] Pablo Vo M.D. [address] [place] [phone] CT Chest Angiogram and Pulmonary Arteries with [...] How often do you attend chur or mu-ism services? 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 [address] [place] [phone] 02/11/2025 2:40 PM CDT Office Visit Department of Oncology in [place], [place] [address] [address] Pablo Vo M.D. [address] [place] [phone] Scheduled Orders Name Type Priority Associated Diagnoses [...] documented as of this encounter Care Teams Wet Process Miller Head Relationship Specialty Start Date End Date Jeff Reyes M.D. Gayle [place] [phone] PCP - General 03/14/24 documented as of this encounter
--- OUTSIDE RECORDS SUMMARY | 2024-11-16 13:14 | XMS_ITS | Encounter Summary ---
Author Organization [facility] Address [address] [place] [address] Care Team Providers Care Med Admin Name Role Phone Jeff Reyes M.D. 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 [address] [place] [address] Phone: tel: fax: [facility] Referral ID Status Reason Start Date Expiration Date Visits Re quested Visits Authorized [id number] Closed 11/05/2024 02/05/2026 1 1 Reason for Visit * Cardiovascular-Diagnostic (Routine) - Closed Specialty Diagnoses / Procedures Referred By Jono donohue Referred To Contact Diagnoses Cholecystitis Preoperative Examination Cardiovascular Hyperlipidemia On Treatment Atherosclerotic Heart Disease Of [place]into Coronary Artery Without Angina Pectoris Procedures Echo Stress Thaddeus Li M.D. [address] [place] [address] Phone: tel: fax: [facility] Referral ID Status Reason Start Date Expiration Date Visits Re quested Visits Authorized [id number] Closed 11/05/2024 02/05/2026 1 1 Encounter Details Date Type Department Care Team (Latest Contact Info) Description 11/06/2024 8:22 AM CDT - 11/06/2024 11:59 PM CDT Hospital Encounter Department of Cardiovascular Diseases in [place], [place] [address] [place] [address] Thaddeus Li M.D. [address] [place] [address] Cholecystitis; Preoperative Examination Cardiovascular; Hyperlipidemia On Treatment; Atherosclerotic Heart Disease Of Minto Coronary Artery Without Angina Pectoris Discharge Disposition: Home or Self Care Social History Tobacco Use Types Packs/Day Years Used Date Smoking Tobacco: Former Cigarettes Q uit: 1977 Passive Smoke Exposure: Never Alcohol Use Standard Drinks/Week Comments Not Currently 1 (1 standard drink = 0.6 oz pur e alcohol) [facility] mobifriendsities Answer Date Recorded In the past 12 months has e [employer], gas, oil, or water [employer] threatened to shut off services in your [...] How often do you attend chur or congregational services? Never 10/18/2022 Do you belong to [...] Answer Date Recorded PHQ-2 Score 0 02/07/2024 [facility] of Occupat ional Health - [...] your living situation today? I have a [facility] place to live 08/08/2024 Education Answer Date Recorded What is the highest level of school you have completed or the highest degree you have received? 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 [address] [place] [phone] 02/11/2025 2:40 PM CDT Office Visit Department of Oncology in [place], [place] [address], [place] [phone] Pablo Vo M.D. [address] [place] [phone] documented as of this encounter Procedures Procedure Name Priority Date/Time Associated Diagnosis Comments ECHO STRESS 2D WITH COLOR, DOPPLER AND CONTRAST Routine 11/06/2024 10:03 AM CDT Cholecystitis Preoperative Examination Cardiovascular Hyperlipidemia On Treatment Atherosclerotic Heart Disease Of M[place] Coronary Artery Without Angina Pectoris documented in [...] per Echocardiography Contrast Administration Protocol Reference Document [id number] Rev 11/04/2021. Patient met an inclusion criterion [...] administered per EchocardiographyContrast Administration Protocol Reference Document [id number] Rev11/04/2021. Patient met an inclusion criterion and did not havecontraindications in screening sections. For the complete report, see the Order-Level Documents. Thaddeus Li M.D. CV ECHO PROCEDURES Nieves rincon Result documented in this encounter Visit Diagnoses Diagnosis Cholecystitis Preoperative Examination Cardiovascular Hyperlipidemia On Treatment Atherosclerotic Heart Disease Of Minto Coronary Artery Without Angina Pectoris documented in [...] documented as of this encounter Care Teams Med Admin Relationship Specialty Start Date End Date Jeff Reyes M.D. [address] [place] [address] PCP - General 03/14/24 documented as of this encounter
--- OUTSIDE RECORDS SUMMARY | 2024-11-16 13:14 | XMS_ITS | Encounter Summary ---
Author Organization [facility] Address [address] [place] [address] Care Team Providers Care Welfare Manager Name Role Phone Jeff Reyes M.D. Primary Care Provider [phone] Reason for Referral * Outpatient (Routine) - Authorized Specialty Diagnoses / Procedures Referred By Contac t Referred To Contact Radiology Diagnoses Cholecystitis Procedures IR Percutaneous Cholecystostomy Tube Exchange Anuel Nunn M.D. [address] [place] [address] Phone: tel: fax: [facility] Referral ID Status Reason Start Date Expiration Date V isits Requested Visits Authorized [id number] Authorized 10/24/2024 01/24/2026 1 1 * Outpatient (Routine) - Closed Specialty Diagnoses / Procedures Referred By Contac t Referred To Contact Radiology Diagnoses Cholecystitis Procedures IR Percutaneous Cholecystostomy Tube Exchange Rafael Cisse P.A.-C., P.A. [address] [place] [phone] Phone: tel: fax: [facility] Referral ID Status Reason Start Date Expiration Date Visits Re quested Visits Authorized [id number] Closed 10/01/2024 01/01/2026 1 1 Reason for Visit * Outpatient (Routine) - Closed Specialty Diagnoses / Procedures Referred By Jono donohue Referred To Contact Radiology Diagnoses Cholecystitis Procedures IR Percutaneous Cholecystostomy Tube Exchange Rafael Cisse P.A.-C., P.A. [address] [place] [phone] Phone: tel: fax: [facility] Referral ID Status Reason Start Date Expiration Date Visits Re quested Visits Authorized [id number] Closed 10/01/2024 01/01/2026 1 1 Encounter Details Date Type Department Care Team (Latest Contact Info) Description 10/24/2024 9:12 AM CDT - 10/24/2024 10:53 AM CDT Hospital Encounter Department of Radiology in [place], [place] [address] [place] [phone] Rafael Cisse P.A.-C., P.A. [address] [place] [phone] Anuel Nunn M.D. [address] [place] [phone] Cholecystitis Discharge Disposition: Home or Self Care Social History Tobacco Use Types Packs/Day Years Used Date Smoking Tobacco: Former Cigarettes Q uit: 1977 Passive Smoke Exposure: Never Alcohol Use Standard Drinks/Week Comments Not Currently 1 (1 standard drink = 0.6 oz pur e alcohol) [facility] Utilities Answer Date Recorded In the past 12 months has [employer], gas, oil, or water [employer] threatened to shut off services in your [...] often do you attend chur ch or episcopal services? 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 New 14 Peruvian cholecystostomy tube placed and anchored with two sutures. Contrast injection shows occluded cystic duct. Please see Radiology Report for full details. CAMPER ASSEMBLER Ollie Nunn M.D. SPECIMENS REMOVED 20 mL [...] AM CDT Appointment Department of Radiology in [place], [place] [address] [place] [address] Pablo Vo M.D. [address] [place] [phone] 02/11/2025 2:40 PM CDT Office Visit Department of Oncology in [place], [place] [address] [place] [address] Pablo Vo M.D. [address] [place] [phone] Pending Results Name Type Priority Associated Diagnoses [...] medications. Patient education provided by a care steam meter reader. Patient was ready to learn with no apparent learning barriers were identified. Post-procedure care explained; patient expressed understanding of the content. PROCEDURE DETAILS: Sedation: None. Sedation time: Not applicable. Estimated Blood Loss: Less than 10 mL. TECHNIQUE: Imaging guidance for catheter exchange: Fluoroscopy with permanent image storage Access side: Right lateral abdomen intercostal transhepatic Catheter: 14 Peruvian 25 cm multipurpose pigtail drain Technique: The indwelling 12 Peruvian catheter was injected with contrast. A guidewire was inserted through the catheter, and the catheter was exchanged for a new 47 Peruvian catheter. Contrast was injected confirming the location [...] routine catheter exchange. Catheter upsized to 14 Peruvian. If patient remains not a surgical candidate, [...] medications. Patient education provided by a care steam meter reader. Patient was ready to learn withno apparent learning barriers were identified. Post-procedure careexplained; patient expressed understanding of the content. PROCEDURE DETAILS: Sedation: None. Sedation time: Not applicable. Estimated Blood Loss: Less than 10 mL. TECHNIQUE: Imaging guidance for catheter exchange: Fluoroscopy with permanent imagestorage Access side: Right lateral abdomen intercostal transhepatic Catheter: 14 Peruvian 25 cm multipurpose pigtail drain Technique: The indwelling 12 Peruvian catheter was injected with contrast. Aguidewire was inserted through the catheter, and the catheter wasexchanged for a new 47 Peruvian catheter. Contrast was injected confirmingthe location of [...] a routine catheter exchange.Catheter upsized to 14 Peruvian. If patient remains not a surgicalcandidate, may [...] MICROBIOLOGY - GENERAL OR DERABLES Final Result [facility] [address] [place] [address], [facility] in [place] [address] [place] [address] * (ABNORMAL) Gram Stain (10/24/2024 10:09 AM CDT) Gram Stain White blood cells, Many.(A) 10/24/2024 11:22 AM CDT MKTO Gram Stain GRAM POSITIVE COCCUS RESEMBLING STREPTOCOCCUS Moderate. (A) 10/24/2024 11:22 AM CDT MKTO Fluid (Gallbladder) 10/24/2024 10:09 AM CDT 10/24/2024 10:36 AM CDT Comment:Specimen Source Site : Fluid Anuel Nunn M.D. LAB MICROBIOLOGY - GENERAL OR DERABLES Final Result [facility] [address] [place] [address], [place] MKTO [facility] in [place] [address] [place] [address] * (ABNORMAL) Bacterial Culture, Aerobic + Susceptibility [...] MICROBIOLOGY - GENERAL OR DERABLES Final Result [facility] [address] [place] [address], [facility] MKTO [facility] in [place] [address] [place] [address] documented in this encounter Visit Diagnoses Diagnosis [...] documented as of this encounter Care Teams Welfare Manager Relationship Specialty Start Date End Date Jeff Reyes M.D. [address] [place] [phone] PCP - General 03/14/24 documented as of this encounter
--- OUTSIDE RECORDS SUMMARY | 2024-11-16 13:14 | XMS_ITS | Encounter Summary ---
Author Organization [facility] Address [address] [place] [address] Care Team Providers Care Medical Insurance Claims Specialist Name Role Phone Jeff Reyes M.D. Primary Care Provider [phone] Encounter Details Date Type Department Care Team (Late st Contact Info) Description 11/12/2024 Clinical Communication Department of Family Medicine, [facility], in [place], [place] [address] [place] [phone] Jeff Reyes M.D. [address] [place] [address] Social History Tobacco Use Types Packs/Day Years Used Date Smoking Tobacco: Former Cigarettes Q uit: 1977 Passive Smoke Exposure: Never Alcohol Use Standard Drinks/Week Comments Not Currently 1 (1 standard drink = 0.6 oz pur e alcohol) [facility] Utilities Answer Date Recorded In [...] Answer Date Recorded PHQ-2 Score 0 02/07/2024 [facility] [place] of Occupat ional Health - Occupational Stress [...] living situation today? I have a [facility] place to live 11/08/2024 Education Answer Date Recorded What is the highest level of school you have completed or the highest degree you have received? 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 [address] [place] [phone] 02/11/2025 2:40 PM CDT Office Visit Department of Oncology in [place], [place] [address] [facility] [place] [address] Pablo Vo M.D. [address] [place] [phone] documented as of this encounter Visit Diagnoses Not on filedocumented in this encounter Additional Health Concerns Assessment Noted Time PHQ-9 Depression Total Score: 10 018 11:00 AM CDT documented as of this encounter Care Teams Medical Insurance Claims Specialist Relationship Specialty Start Date End Date Jeff Reyes M.D. [address] [place] [phone] PCP - General 03/14/24 documented as of this encounter
--- OUTSIDE RECORDS SUMMARY | 2024-11-16 13:14 | XMS_ITS | Clinical Summary ---
Author Organization [facility] Address [address] [place] [address] Care Team Providers Care Engraving Press Operator Name Role Phone Jeff Reyes M.D. Primary Care Provider Source Comments Patient records contain information from all sites at [facility]. For routine questions regarding patient records, call [phone] during business hours, M-F 8:00 AM - 5:00 PM Central Time. 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 Assessment & Plan (07/04/2018 2:56 PM FABRICATION WELDER): Continue I&O catheterization as needed Multiple Sclerosis 06/03/2003 Assessment & Plan (07/04/2018 3:32 PM FABRICATION WELDER): -Continue to follow with Neurology for further recommendations Resolved Problems Problem Noted Date Diagnosed Date Resolved Date Sprain Ankle Initial Right 11/08/2022 0 11/09/2022 Obesity Unspecified 03/21/2019 11/10/19 23 Urinary Tract Infection Site Not Specified 07/04/2018 11/09/2022 Overview (07/04/2018): Completed ciprofloxacin 500 mg b.i.d. for an antibiotic course of 14 days (last dose on 06/08/2018) Assessment & Plan (07/04/2018 3:31 PM FABRICATION WELDER): -Patient denies any urinary symptoms today on exam. -Continue care cranberry 450 mg daily Failure Renal Acute (Acute Kidney Injury) 05/27/2018 10/19/2022 Non-ST Elevation Myocardial Infarction 05/26/2018 10/23/2019 Assessment & Plan (07/04/2018 10:14 AM FABRICATION WELDER): 1. Continue aspirin 81 mg daily 2. [...] CDT Hospital Encounter Department of Radiology in [place], [place] [address] [place] [phone] Pablo Vo M.D. Embolus Pulmonary (HCC); Acute Embolism And Thrombosis Of Other Specified Deep Vein Of Lower Extremity Bilateral (HCC) Discharge Disposition: Home or Self Care 11/14/2024 8:23 AM CDT - 11/14/2024 8:44 AM CDT Hospital Encounter Department of Radiology in [place], [place] [address] [place] [phone] Pablo Vo M.D. Embolus Pulmonary (HCC); Acute Embolism And Thrombosis Of Other Specified Deep Vein Of Lower Extremity Bilateral (HCC) Discharge Disposition: Home or Self Care 11/14/2024 Results Follow-Up Department of Oncology in [place], [place] [address] [place] [phone] Chest Angiogram and Pulmonary Arteries with IV Contrast 11/12/2024 10:26 AM CDT - 11/12/2024 11:59 PM CDT Hospital Encounter Department of Laboratory Medicine in [address] [phone] Pablo Vo M.D. Embolus Pulmonary (HCC); Acute Embolism And Thrombosis Of Other Specified Deep Vein Of Lower Extremity Bilateral (HCC) Discharge Disposition: Home or Self Care 11/12/2024 9:00 AM CDT Comprehensive Visit Department of Oncology in [place], [place] [address] [place] [phone] Pablo Vo M.D. Embolus Pulmonary (HCC) (Primary Dx); Acute Embolism And Thrombosis Of Other Specified Deep Vein Of Lower Extremity Bilateral (HCC); Paraplegia (HCC); Multiple Sclerosis (HCC); Body Mass Index 34.0 To 34.9 Adult 11/12/2024 Clinical Communication Department of [facility], [facility], in [address] [place] [address] Jeff Reyes M.D. 11/08/2024 10:45 AM CDT Virtual Visit Department of Cardiovascular Diseases in [place], [place] [address] [place] [phone] Thaddeus Li M.D. Hyperlipidemia On Treatment (Primary Dx); Atherosclerotic Heart Disease Of [place] Coronary Artery Without Angina Pectoris; Preoperative Examination Cardiovascular; Embolus Pulmonary (HCC) 11/06/2024 8:22 AM CDT - 11/06/2024 11:59 PM CDT Hospital Encounter Department of Cardiovascular Diseases in [place], [place] [address] [place] [address] Thaddeus Li M.D. Cholecystitis; Preoperative Examination Cardiovascular; Hyperlipidemia On Treatment; Atherosclerotic Heart Disease Of [place] Coronary Artery Without Angina Pectoris Discharge Disposition: Home or Self Care 11/05/2024 9:24 AM CDT - 11/05/2024 11:59 PM CDT Hospital Encounter Department of Laboratory Medicine in [place], [place] [address] [phone] Thaddeus Li M.D. Cholecystitis; Preoperative Examination Cardiovascular; Hyperlipidemia On Treatment; Atherosclerotic Heart Disease Of [place] Coronary Artery Without Angina Pectoris Discharge Disposition: Home or Self Care 11/05/2024 8:45 AM CDT Comprehensive Visit Department of Cardiovascular Diseases in [place], [place] [address] [place] [phone] Thaddeus Li M.D. Preoperative Examination Cardiovascular (Primary Dx); Cholecystitis; Hyperlipidemia On Treatment; Atherosclerotic Heart Disease Of [place] Coronary Artery Without Angina Pectoris 11/05/2024 7:35 AM CDT - 11/05/2024 9:23 AM CDT Hospital Encounter Department of Laboratory Medicine in [address] [phone] Roland Benson D.O. Cholecystitis Discharge Disposition: Home or Self Care 10/24/2024 9:12 AM CDT - 10/24/2024 10:53 AM CDT Hospital Encounter Department of Radiology in [address] [phone] Rafael Cisse P.A.-C., P.Anuel Greenfield M.D. Cholecystitis Discharge Disposition: Home or Self Care 10/23/2024 Clinical Communication Department of Radiology in [address] [phone] Anuel Nunn M.D. Blanca Tube Follow Up 10/22/2024 Clinical Communication Department of Oncology in [address] [phone] Pablo Vo M.D. 10/01/2024 11:06 AM CDT - 10/01/2024 12:09 PM CDT Hospital Encounter Department of Radiology in [address] [phone] Anuel Nunn M.D. Cholecystitis Discharge Disposition: Home or Self Care 09/20/2024 Clinical Communication Department of General Surgery in [address] [phone] Roland Benson D.O. Communication (Regarding procedure and current medication regimen) 09/20/2024 Clinical Communication Department of Radiology in [address] [phone] Anuel Nunn M.D. 09/15/2024 11:32 AM FABRICATION WELDER - 09/15/2024 6:05 PM FABRICATION WELDER Emergency [facility] Emergency Department [address] [place] [phone] Erlin Crocker, D.Tammy., M.S. Allergic Contact Dermatitis Due To Adhesives (Primary Dx); Cholecystitis Acute And Chronic Discharge Disposition: Home or Self Care 09/04/2024 10:45 AM FABRICATION WELDER Comprehensive Visit Department of General Surgery in [address] [phone] Roland Benson D.O. Cholecystitis Discharge Disposition: Home or Self Care 09/02/2024 12:21 PM FABRICATION WELDER - 09/03/2024 3:59 PM FABRICATION WELDER Emergency [facility] Emergency Department [address] [place] [phone] David Kumar D.O. Planas, Jason H, M.D. Ho, Trinh N, D.O. Candelario Oseguera M.D., M.B.A. Nausea And Vomiting (Primary Dx) Discharge Disposition: Home or Self Care 08/20/2024 Clinical Communication Department of Family Medicine, [facility], in [address] [place] [phone] Asia Bartholomew, R.N. Post Hospital Follow-up from [...] drink = 0.6 oz pur e alcohol) [facility] [employer] Answer Date Recorded In the past 12 months has th e electric, gas, oil, or water [employer] threatened to shut off services in your [...] often do you attend chur ch or presybeterian services? Never 10/18/2022 Do you belong to any clubs o r organizations such as hinduism groups, unions, fraternal or athletic groups, or [...] 0 02/07/2024 [facility] - Occupational Stress Questionnaire Answer [...] Sex Assigned at Male 06/26/2018 4:20 PM FABRICATION WELDER Legal Sex Male 3:33 AM FABRICATION WELDER Gender Identity Not on file Sexual Orientation [...] Body Mass Index 34.23 09/15/2024 3:21 PM FABRICATION WELDER Plan of Treatment Upcoming Encounters Date Type Department Care Team (Late st Contact Info) Description 02/06/2025 9:00 AM CDT Appointment Department of Radiology in [place], [place] [address], [place] [phone] Pablo Vo M.D. [address] [place] [phone] 02/11/2025 2:40 PM CDT Office Visit Department of Oncology in [place], [place] [address], [place] [phone] Pablo Vo M.D. [address] [place] [address] Health Maintenance Due Date Last Done Comments [...] this topic Medical Devices Implanted Type Area Log Loader Device Identifier Shelf Expiration Date Model / Serial / Lot Scrw St 24pthrd 8.0x105 - [id number] Implanted:Qty : 1 on 12/15/2022 by Jana Don M.D. at [facility] Hardware e.g. pins/screws/ rods Right: Femur [employer] 380-5105- 024 / / Scrw Vthrd Fast 7.0x105 - [id number] Implanted:Qty : 2 on 12/15/2022 by Jana Don M.D. at [facility] Hardware e.g. pins/screws/ rods Right: Fem[employer] [id number] / / Washr Flt 1.5x13 - [id number] Implanted:Qty : 4 on 12/15/2022 by Jana Don M.D. at [facility] Hardware e.g. pins/screws/ rods Right: Femur [...] Hyperlipidemia On Treatment Atherosclerotic Heart Disease Of [place] Coronary Artery Without Angina Pectoris LIPID PANEL, S Routine 11/05/2024 9:32 AM CDT Cholecystitis Preoperative Examination Cardiovascular Hyperlipidemia On Treatment Atherosclerotic Heart Disease Of [place] Coronary Artery Without Angina Pectoris ECG Routine [...] ED patients; some inpatients) 09/15/2024 1:13 PM FABRICATION WELDER COMPREHENSIVE METABOLIC PANEL, S/P STAT 09/15/2024 12:38 PM FABRICATION WELDER CBC WITH DIFFERENTIAL, B STAT 09/15/2024 12:38 PM FABRICATION WELDER HC URINALYSIS AUTO WO MICRO STAT 09/02/2024 4:11 PM FABRICATION WELDER URINALYSIS WITH MICROSCOPIC IF INDICATED, U STAT 09/02/2024 4:[address] ABDOMEN PELVIS WITH IV CONTRAST RAD - Semiurgent (Fast; most ED patients; some inpatients) 09/02/2024 1:46 PM FABRICATION WELDER LIPASE, S/P STAT 09/02/2024 1:00 PM FABRICATION WELDER COMPREHENSIVE METABOLIC PANEL, S/P STAT 09/02/2024 1:00 PM FABRICATION WELDER CBC WITH DIFFERENTIAL, B STAT 09/02/2024 1:00 PM FABRICATION WELDER from Last 3 Months Results * US [...] and management can be found on the bewarket site. Link [email or web address] Procedure Note Codey Saavedra M.D. - 11/14/2024 [...] thrombosis and management can be found on theAskMaDigital Vegaert site. [email or web address] [email or web address] IMPRESSION: Negative for acute [...] Vo M.D. LAB BLOOD ADD-ON Final Result [facility] [address] [place] [address], [facility] in [place] [address] [place] [address] * ECHO STRESS 2D WITH COLOR, DOPPLER [...] per Echocardiography Contrast Administration Protocol Reference Document [id number] Rev 11/04/2021. Patient met an inclusion criterion [...] administered per EchocardiographyContrast Administration Protocol Reference Document [id number] Rev11/04/2021. Patient met an inclusion criterion and [...] Li M.D. LAB BLOOD ADD-ON Final Result [facility] [address] [place] [address], [facility] in [place] [address] [place] [address] * ECG 12 Lead (11/05/2024 7:43 AM CDT) Ventricular Rate ECG/Min 62 BPM MUSE NE Interval 210 ms MUSE QRSD Interval 102 ms MUSE QT Interval 396 ms MUSE QTC Interval 401 ms MUSE P Sheld[place] 52 degrees MUSE R Sheldon -16 degrees MUSE T Wave [place] 46 degrees MUSE 11/05/2024 7:43 AM CDT [...] medications. Patient education provided by a care athletic team physician. Patient was ready to learn with no apparent learning barriers were identified. Post-procedure care explained; patient expressed understanding of the content. PROCEDURE DETAILS: Sedation: None. Sedation time: Not applicable. Estimated Blood Loss: Less than 10 mL. TECHNIQUE: Imaging guidance for catheter exchange: Fluoroscopy with permanent image storage Access side: Right lateral abdomen intercostal transhepatic Catheter: 14 Belgian 25 cm multipurpose pigtail drain Technique: The indwelling 12 Belgian catheter was injected with contrast. A guidewire was inserted through the catheter, and the catheter was exchanged for a new 47 Belgian catheter. Contrast was injected confirming the location [...] routine catheter exchange. Catheter upsized to 14 Belgian. If patient remains not a surgical candidate, [...] medications. Patient education provided by a care athletic team physician. Patient was ready to learn withno apparent learning barriers were identified. Post-procedure careexplained; patient expressed understanding of the content. PROCEDURE DETAILS: Sedation: None. Sedation time: Not applicable. Estimated Blood Loss: Less than 10 mL. TECHNIQUE: Imaging guidance for catheter exchange: Fluoroscopy with permanent imagestorage Access side: Right lateral abdomen intercostal transhepatic Catheter: 14 Belgian 25 cm multipurpose pigtail drain Technique: The indwelling 12 Belgian catheter was injected with contrast. Aguidewire was inserted through the catheter, and the catheter wasexchanged for a new 47 Belgian catheter. Contrast was injected confirmingthe location of [...] a routine catheter exchange.Catheter upsized to 14 Belgian. If patient remains not a surgicalcandidate, may consider spyglass lithotripsy. IMPRESSION: Expedited exchange of the cholecystostomy catheter due to indwellingcatheter retraction. Catheter upsized due to frankly purulent bile withinthe gallbladder. Cystic duct is occluded on today's exam. Rafael Cisse P.A.-C., P.A. IMG IR PROCEDURES Nieves l Result * (ABNORMAL) Bacterial Culture, Aerobic + Susceptibility (10/24/2024 10:09 AM CDT) [facility] Bacterial Culture, Aerobic + Susc KLEBSIELLA PNEUMONIAE [...] OR DERABLES Final Result Performing Organization Address City/[facility]/ZIP Co de Phone Number [facility] [address] [place] [address], [facility] [place] [address] * (ABNORMAL) Gram Stain (10/24/2024 10:09 AM CDT) Gram Stain White blood cells, Many.(A) 10/24/2024 11:22 AM CDT MKTO Gram Stain GRAM POSITIVE COCCUS RESEMBLING STREPTOCOCCUS Moderate. (A) 10/24/2024 11:22 AM CDT MKTO Fluid (Gallbladder) 10/24/2024 10:09 AM CDT 10/24/2024 10:36 AM CDT Comment:Specimen Source Site : Fluid Anuel Nunn M.D. LAB MICROBIOLOGY - GENERAL OR DERABLES Final Result Performing Organization Address City/[facility]/ZIP Co de Phone Number [facility] [address] [place] [address] [place] [address] * Bacterial Culture, Anaerobic + Susceptibility (10/24/2024 10:09 AM CDT) Bacterial Culture, Anaerobic No growth after 7 days of incubation. 10/31/2024 8:02 AM CDT [facility] Fluid (Gallbladder) 10/24/2024 10:09 AM CDT 10/24/2024 10:36 AM CDT Comment:Specimen Source Site : Fluid us Anuel Nunn M.D. LAB MICROBIOLOGY - GENERAL OR DERABLES [place] [address] * CT Abdomen Pelvis with IV Contrast (09/15/2024 1:13 PM FABRICATION WELDER) Only the most recent of2 resultswithin the time period is included. Anatomical Region Laterality Modality Abdomen, Pelvis, Abdominal R ST LOS, Abdominal ARZ LOS, Abdominal FLA LOS N/A Computed Tomography 09/15/2024 1:11 PM FABRICATION WELDER Impressions 09/15/2024 2:46 PM FABRICATION WELDER 1. Cholecystostomy tube remains in place and gallbladder remains decompressed. 2. No findings of new pathology. Narrative 09/15/2024 2:46 PM FABRICATION WELDER EXAM: CT ABDOMEN PELVIS WITH IV CONTRAST [...] CBC with Differential, Blood (09/15/2024 12:38 PM FABRICATION WELDER) Only the most recent of2 resultswithin the time period is included. Hemoglobin 11.2(L) 13.2 - 16.6 g/dL 09/15/2024 12:54 PM FABRICATION WELDER MKTO Hematocrit 35.8(L) 38.3 - 48.6 % 09/15/2024 12:54 PM FABRICATION WELDER MKTO Erythrocytes 4.24(L) 4.35 - 5.65 x10(12)/L 09/15/2024 12:54 PM FABRICATION WELDER MKTO MCV 84.4 78.2 - 97.9 fL 09/15/2024 12:54 PM FABRICATION WELDER MKTO RBC Distrib Width 16.7(H) 11.8 - 14.5 % 09/15/2024 12:54 PM FABRICATION WELDER MKTO Platelet Count 194 135 - 317 x10(9)/L 09/15/2024 12:54 PM FABRICATION WELDER MKTO Leukocytes 9.2 3.4 - 9.6 x10(9)/L 09/15/2024 12:54 PM FABRICATION WELDER MKTO Neutrophils 6.85(H) 1.56 - 6.45 x10(9)/L 09/15/2024 12:54 PM FABRICATION WELDER MKTO Lymphocytes 1.47 0.95 - 3.07 x10(9)/L 09/15/2024 12:54 PM FABRICATION WELDER MKTO Monocytes 0.63 0.26 - 0.81 x10(9)/L 09/15/2024 12:54 PM FABRICATION WELDER MKTO Eosinophils 0.24 0.03 - 0.48 x10(9)/L 09/15/2024 12:54 PM FABRICATION WELDER MKTO Basophils <0.03 0.01 - 0.08 x10(9)/L 09/15/2024 12:54 PM FABRICATION WELDER MKTO Blood (Blood, Venous) 09/15/2024 12:38 PM FABRICATION WELDER 09/15/2024 12:49 PM FABRICATION WELDER Erlin Crocker D.O., M.S. LAB BLOOD ADD-ON Nieves l Result [facility] [address] [place] [address], [facility] MKTO [facility] in [place] [address] [place] [address] * (ABNORMAL) Comprehensive Metabolic Panel (09/15/2024 12:38 PM FABRICATION WELDER) Only the most recent of2 resultswithin the time period is included. Potassium, P 4.8 3.6 - 5.2 mmol/L 09/15/2024 1:09 PM FABRICATION WELDER MKTO Sodium, P 136 135 - 145 mmol/L 09/15/2024 1:09 PM FABRICATION WELDER MKTO Chloride, P 102 98 - 107 mmol/L 09/15/2024 1:09 PM FABRICATION WELDER MKTO Bicarbonate, P 23 22 - 29 mmol/L 09/15/2024 1:09 PM FABRICATION WELDER MKTO Anion Gap, P 11 7 - 15 09/15/2024 1:09 PM FABRICATION WELDER MKTO BUN (Blood Urea Nitrogen), P 34(H) 8 - 24 mg/dL 09/15/2024 1:09 PM FABRICATION WELDER MKTO Creatinine 0.96 0.74 - 1.35 mg/dL 09/15/2024 1:09 PM FABRICATION WELDER MKTO Estimated GFR (eGFR) 83 >=60 mL/min/BS A 09/15/2024 1:09 PM FABRICATION WELDER MKTO Comment: Estimated GFR calculated using the 2020 CKD_EPI creatinine equation. Calcium, Total, P 9.4 8.8 - 10.2 mg/dL 09/15/2024 1:09 PM FABRICATION WELDER MKTO Glucose, P 173(H) 70 - 140 mg/dL 09/15/2024 1:09 PM FABRICATION WELDER MKTO Protein, Total, P 6.4 6.3 - 7.9 g/dL 09/15/2024 1:09 PM FABRICATION WELDER MKTO Albumin, P 3.4(L) 3.5 - 5.0 g/dL 09/15/2024 1:09 PM FABRICATION WELDER MKTO Aspartate Aminotransferase (AST), P 27 8 - 48 U/L 09/15/2024 1:09 PM FABRICATION WELDER MKTO Alkaline Phosphatase, P 108 40 - 129 U/L 09/15/2024 1:09 PM FABRICATION WELDER MKTO Alanine Aminotransferase (ALT), P 29 7 - 55 U/L 09/15/2024 1:09 PM FABRICATION WELDER MKTO Bilirubin, Total, P <0.2 0.0 - 1.2 mg/dL 09/15/2024 1:09 PM FABRICATION WELDER MKTO Blood (Blood, Venous) 09/15/2024 12:38 PM FABRICATION WELDER 09/15/2024 12:49 PM FABRICATION WELDER us Erlin Crocker D.O., M.S. LAB BLOOD ADD-ON Nieves l Result [facility] [address] [place] [address], [facility] [place] [address] * (ABNORMAL) Urinalysis with Microscopic if Indicated: Urine, Midstream (09/02/2024 4:11 PM FABRICATION WELDER) Source Urine, Urine, Midstream 09/02/2024 4:24 PM FABRICATION WELDER MKTO Clarity Clear Clear 09/02/2024 4:24 PM FABRICATION WELDER MKTO Color Yellow 09/02/2024 4:24 PM FABRICATION WELDER MKTO Comment: ----REFERENCE VALUE---- Colorless Yellow Alylson Blood Trace(A) Negative 09/02/2024 4:24 PM FABRICATION WELDER MKTO Nitrite Negative Negative 09/02/2024 4:24 PM FABRICATION WELDER MKTO Leukocyte Esterase Trace(A) Negative 09/02/2024 4:24 PM FABRICATION WELDER MKTO Protein Negative mg/dL 09/02/2024 4:24 PM FABRICATION WELDER MKTO Comment: ----REFERENCE VALUE---- Negative Trace Glucose Negative Negative mg/dL 09/02/2024 4:24 PM FABRICATION WELDER MKTO Ketone Negative Negative mg/dL 09/02/2024 4:24 PM FABRICATION WELDER MKTO Bilirubin Negative Negative 09/02/2024 4:24 PM FABRICATION WELDER MKTO pH 5.5 5.0 - 8.0 09/02/2024 4:24 PM FABRICATION WELDER MKTO Specific [place] >1.035(A) 1.001 - 1.035 09/02/2024 4:24 PM FABRICATION WELDER MKTO Urobilinogen 1.0 0.2 - 1.0 mg/dL 09/02/2024 4:24 PM FABRICATION WELDER MKTO Urine (Urine, Midstream) 09/02/2024 4:11 PM FABRICATION WELDER 09/02/2024 4:16 PM FABRICATION WELDER us David Kumar D.O. LAB URINE ORDERABLES Final R esult [facility] [address] [place] [address], [facility] [place] [address] * (ABNORMAL) Microscopic Automated (09/02/2024 4:11 PM FABRICATION WELDER) White Blood Cells 11-20(A) /hpf 09/02/2024 4:26 PM FABRICATION WELDER MKTO Comment: ----REFERENCE VALUE---- Males: 0-3 Females: 0-10 Unknown: 0-10 Red Blood Cells Occ-2 0 - 2 /hpf 09/02/2024 4:26 PM FABRICATION WELDER MKTO Hyaline Casts 1-3 /lpf 09/02/2024 4:26 PM FABRICATION WELDER MKTO Bacteria Present(A) None Seen 09/02/2024 4:26 PM FABRICATION WELDER MKTO Urine 09/02/2024 4:11 PM FABRICATION WELDER 09/02/2024 4:16 PM FABRICATION WELDER us David Kumar D.O. LAB URINE ORDERABLES Final R esult Performing Organization Address [facility]/ZIP Co de Phone Number [facility] [address] [place] [address], [place] [address] * Lipase (09/02/2024 1:00 PM FABRICATION WELDER) Lipase, P 23 13 - 60 U/L 09/02/2024 1: 26 PM FABRICATION WELDER MKTO Blood (Blood, Venous) 09/02/2024 1:00 PM FABRICATION WELDER 09/02/2024 1:05 PM FABRICATION WELDER us David Kumar D.O. LAB BLOOD ADD-ON Final Resul t Performing Organization Address City/[facility]/ZIP Co de Phone Number [facility] [address] [place] [address], [place] [address] from Last 3 Months Insurance MEDICA Advance Directives For more information, please contact: [phone] Documents on File Type Date Recorded Patient Dirt Contractor Expl anation Advance Directives 08/08/2024 6:58 AM [...] Answer Comments Full Code: Discussed Care Teams Engraving Press Operator Relationship Specialty Start Date End Date Jeff Reyes M.D. [address] [place] [phone] PCP - General 03/14/24
--- OUTSIDE RECORDS SUMMARY | 2024-11-16 13:14 | XMS_ITS | Encounter Summary ---
Author Organization [facility] Address [address] [place] [address] Care Team Providers Care Obstetrical Nurse Name Role Phone Jeff Reyes M.D. Primary Care Provider [phone] Reason for Referral * MRI/CAT/PET Scan (Routine) - Closed Specialty Diagnoses / Procedures Referred By Jono donohue Referred To Contact Radiology Diagnoses Embolus Pulmonary (HCC) Acute Embolism And Thrombosis Of Other Specified Deep Vein Of Lower Extremity Bilateral (HCC) Procedures CT Chest Angiogram and Pulmonary Arteries with IV Contrast CT Chest Angiogram with IV Contrast Pablo Vo M.D. [address] [place] [address] Phone: tel: fax: [facility] Region Referral ID Status Reason Start Date Expiration Date Visits Re quested Visits Authorized [id number] Closed 11/12/2024 02/12/2026 1 1 Reason for [...] IV Contrast Pablo Vo M.D. [address] [place] [address] Phone: tel: fax: [facility] Region Referral ID Status Reason Start Date Expiration Date Visits Re quested Visits Authorized [id number] Closed 11/12/2024 02/12/2026 1 1 Encounter Details Date Type Department Care Team (Latest Contact Info) Description 11/14/2024 8:23 AM CDT - 11/14/2024 8:44 AM CDT Hospital Encounter Department of Radiology in [place], [place] [address] [place] [phone] Pablo Vo M.D. [address] [place] [address] Embolus Pulmonary (HCC); Acute Embolism [...] oz pur e alcohol) [facility] Utilities Answer Date Recorded In the past 12 months has e [employer], gas, oil, or water [employer] [facility] [employer] threatened to shut off services in [...] any clubs o r organizations such as restorationist groups, unions, fraternal or athletic groups, or [...] Answer Date Recorded PHQ-2 Score 0 02/07/2024 [facility] of Occupat ional Health - Occupational [...] [facility] place to live 11/08/2024 Education Answer Date Recorded What is the highest level of school you have completed or the highest degree you have received? 12th grade 10/18/2022 Sex and Gender Information Value Date Recorded Sex Assigned at Male 06/26/2018 4:20 PM REPAIRER KILN CAR Legal Sex Male 3:33 AM REPAIRER KILN CAR Gender Identity Not on file Sexual Orientation [...] AM CDT Appointment Department of Radiology in [place], [place] [address] [address] Pablo Vo M.D. [address] [place] [phone] 02/11/2025 2:40 PM CDT Office Visit Department of Oncology in [place], [place] [address] [address] Pablo Vo M.D. [address] [place] [phone] documented as of this encounter Procedures Procedure [...] documented as of this encounter Care Teams Obstetrical Nurse Relationship Specialty Start Date End Date Jeff Reyes M.D. [address] [place] [address] PCP - General 03/14/24 documented as of this encounter
--- OUTSIDE RECORDS SUMMARY | 2024-11-16 13:14 | XMS_ITS | Encounter Summary ---
Author Organization [facility] Address [address] [place] [address] Care Team Providers Care Dowel Setting Machine Operator Name Role Phone Jeff Reyes M.D. Primary Care Provider [phone] Encounter Details Date Type Department Care Team (Latest Contact Info) Description 08/07/2024 Intake [facility] Social History Tobacco Use Types Packs/Day Years Used Date Smoking Tobacco: Former Cigarettes Q uit: 1977 Passive Smoke Exposure: Never Alcohol Use Standard Drinks/Week Comments Not Currently 1 (1 standard drink = 0.6 oz pur e alcohol) [facility] Utilities Answer Date Recorded In the past 12 months has e electric, gas, oil, or water [employer] threatened to shut off services in your [...] Answer Date Recorded PHQ-2 Score 0 02/07/2024 [facility] of Occupat ional Health - [...] your living situation today? I have a [facility] place to live 08/08/2024 Education Answer Date Recorded What is the highest level of school you have completed or the highest degree you have received? 12th grade 10/18/2022 Sex and Gender Information Value Date Recorded Sex Assigned at Male 06/26/2018 4:20 PM TEACHER PUBLIC HEALTH Legal Sex Male 3:33 AM TEACHER PUBLIC HEALTH Gender Identity Not on file Sexual Orientation Not on file documented as of this encounter Plan of Treatment Upcoming Encounters Date Type Department Care Team (Late st Contact Info) Description 02/06/2025 9:00 AM CDT Appointment Department of Radiology in [place], [place] [address] [address] Pablo Vo M.D. [address] [place] [phone] 02/11/2025 2:40 PM CDT Office Visit Department of Oncology in [place], [place] [address], [place] [address] Pablo Vo M.D. [address] [place] [address] documented as of this encounter Visit Diagnoses Not on filedocumented in this encounter Additional Health Concerns Infection Onset Date Last Indicated Resolved Time MDR GNB 10/24/2024 10/24/2024 10/27/2024 6:33 AM CDT Assessment Noted Time PHQ-9 Depression Total Score: 10 018 11:00 AM CDT documented as of this encounter Care Teams Dowel Setting Machine Operator Relationship Specialty Start Date End Date Jeff Reyes M.D. [address] [place] [place] [address] PCP - General 03/14/24 documented as of this encounter
--- OUTSIDE RECORDS SUMMARY | 2024-11-16 13:14 | XMS_ITS | Encounter Summary ---
Author Organization [facility] Address [address] [place] [address] Care Team Providers Care Biofuels Technology Development Manager Name Role Phone Jeff Reyes M.D. Primary Care Provider [phone] Encounter Details Date Type Department Care Team (Latest Contact Info) Description 11/05/2024 9:24 AM CDT - 11/05/2024 11:59 PM CDT Hospital Encounter Department of Laboratory Medicine in [place], [place] [address] [place] [phone] Thaddeus Li M.D. [address] [place] [address] Cholecystitis; Preoperative Examination Cardiovascular; Hyperlipidemia On Treatment; Atherosclerotic Heart Disease Of [place] Coronary Artery Without Angina Pectoris Discharge Disposition: Home or Self Care Social History Tobacco Use Types Packs/Day Years Used Date Smoking Tobacco: Former Cigarettes Q uit: 1977 Passive Smoke Exposure: Never Alcohol Use Standard Drinks/Week Comments Not Currently 1 (1 standard drink = 0.6 oz pur e alcohol) [facility] Utilities Answer Date Recorded In the past 12 months has e [employer], gas, oil, or water [employer] threatened to shut off services in your [...] Answer Date Recorded PHQ-2 Score 0 02/07/2024 [facility] of Occupat ional Health - Occupational Stress [...] your living situation today? I have a [facility] place to live 08/08/2024 Education Answer Date Recorded What is the highest level of school you have completed or the highest degree you have received? 12th grade 10/18/2022 Sex and Gender Information Value Date Recorded Sex Assigned at Male 06/26/2018 4:20 PM REFINERY OPERATOR VISBREAKING Legal Sex Male 3:33 AM REFINERY OPERATOR VISBREAKING Gender Identity Not on file Sexual Orientation [...] AM CDT Appointment Department of Radiology in [place], [place] [address], [place] [phone] Pablo Vo M.D. [address] [place] [address] 02/11/2025 2:40 PM CDT Office Visit Department of Oncology in [place], [place] [address], [place] [phone] Pablo Vo M.D. [address] [place] [address] documented as of this encounter Procedures Procedure Name Priority Date/Time Associated Diagnosis Comments LIPID PANEL, S Routine 11/05/2024 9:32 AM CDT Cholecystitis Preoperative Examination Cardiovascular Hyperlipidemia On Treatment Atherosclerotic Heart Disease Of [place] Coronary Artery Without Angina Pectoris documented in [...] Li M.D. LAB BLOOD ADD-ON Final Result [facility] [address] [place] [address], [place] OW[facility] in [place] [address] [place] [address] documented in this encounter Visit Diagnoses Diagnosis Cholecystitis Preoperative Examination Cardiovascular Hyperlipidemia On Treatment Atherosclerotic Heart Disease Of [place] Coronary Artery Without Angina Pectoris documented in this encounter Additional Health Concerns Assessment Noted Time PHQ-9 Depression Total Score: 10 018 11:00 AM CDT documented as of this encounter Care Teams Biofuels Technology Development Manager Relationship Specialty Start Date End Date Jeff Reyes M.D. [address] [place] [address] PCP - General 03/14/24 documented as of this encounter
--- OUTSIDE RECORDS SUMMARY | 2024-11-16 13:14 | XMS_ITS | Encounter Summary ---
Author Organization [facility] Address [address] [place] [address] Care Team Providers Care Licensed Psychologist Director Name Role Phone Jeff Reyes M.D. Primary Care Provider [phone] Reason for Referral * Outpatient (Routine) - Closed Specialty Diagnoses / Procedures Referred By Jono donohue Referred To Contact Diagnoses Embolus Pulmonary (HCC) Acute Embolism And Thrombosis Of Other Specified Deep Vein Of Lower Extremity Bilateral (HCC) Procedures US Lower Extremity Veins Bilateral Pablo Vo M.D. [address] [place] [address] Phone: tel:[phone] fax: [facility] Referral ID Status Reason Start Date Expiration Date Visits Re quested Visits Authorized [id number] Closed 11/12/2024 02/12/2026 1 1 Reason for Visit * Outpatient (Routine) - Closed Specialty Diagnoses / Procedures Referred By Jono donohue Referred To Contact Diagnoses Embolus Pulmonary (HCC) Acute Embolism And Thrombosis Of Other Specified Deep Vein Of Lower Extremity Bilateral (HCC) Procedures US Lower Extremity Veins Bilateral Pablo Vo M.D. [address] [place] [address] Phone: tel: fax: [facility] Region Referral ID Status Reason Start Date Expiration Date Visits Re quested Visits Authorized [id number] Closed 11/12/2024 02/12/2026 1 1 Encounter Details Date Type Department Care Team (Latest Contact Info) Description 11/14/2024 8:45 AM CDT - 11/14/2024 11:59 PM CDT Hospital Encounter Department of Radiology in [place], [place] [address] [place] [address] Pablo Vo M.D. [address] [place] [address] Embolus Pulmonary (HCC); Acute Embolism [...] 0.6 oz pur e alcohol) [facility] Utilities Answer Date Recorded In the past 12 months has e [employer], gas, oil, or water [employer] threatened to shut off services in your [...] any clubs o r organizations such as scientologist groups, unions, fraternal or athletic groups, or [...] Answer Date Recorded PHQ-2 Score 0 02/07/2024 [facility] of Occupat ional [facility] - Occupational Stress Questionnaire Answer [...] your living situation today? I have a [facility] place to live 11/08/2024 Education Answer Date Recorded What is the highest level of school you have completed or the highest degree you have received? 12th grade 10/18/2022 Sex and Gender Information Value Date Recorded Sex Assigned at Male 06/26/2018 4:20 PM AUTOMOTIVE PROFESSIONAL Legal Sex Male 3:33 AM AUTOMOTIVE PROFESSIONAL Gender Identity Not on file Sexual Orientation [...] AM CDT Appointment Department of Radiology in [place], [place] [address] [address] Pablo Vo M.D. [address] [place] [address] 02/11/2025 2:40 PM CDT Office Visit Department of Oncology in [place], [place] [address], [place] [address] Pablo Vo M.D. [address] [place] [phone] documented as of this encounter Procedures Procedure [...] and management can be found on the [employer] site. Link [email or web address][email or web address].org/topic/clinical-answers/[email or web address]/[email or web address] [email or web address] Procedure Note Codey Saavedra M.D. - 11/14/2024 [...] thrombosis and management can be found on the[employer] site. Linkhttps://Reapplix.[facility].org/topic/clinical-answers/cnt-[email or web address]/[place] -2049 1725 IMPRESSION: Negative for acute DVT. us Pablo Vo M.D. [facility] US PROCEDURES Final Result documented in this encounter Visit Diagnoses Diagnosis Embolus Pulmonary (HCC) Acute Embolism And Thrombosis Of Other Specified Deep Vein Of Lower Extremity Bilateral (HCC) documented in this encounter Additional Health Concerns Assessment Noted Time PHQ-9 Depression Total Score: 10 018 11:00 AM CDT documented as of this encounter Care Teams Licensed Psychologist Director Relationship Specialty Start Date End Date Jeff Reyes M.D. [address] [place] [phone] PCP - General 03/14/24 documented as of this encounter
--- OUTSIDE RECORDS SUMMARY | 2024-11-16 13:15 | XMS_ITS | Encounter Summary ---
Author Organization [facility] Address [address] [place] [address] Care Team Providers Care Tank Tender Name Role Phone Jeff Reyes M.D. Primary Care Provider [phone] Encounter Details Date Type Department Care Team (Latest Contact Info) Description 11/12/2024 10:26 AM CDT - 11/12/2024 11:59 PM CDT Hospital Encounter Department of Laboratory Medicine in [place], [place] [address] [place] [address] Pablo Vo M.D. [address] [place] [address] Embolus Pulmonary (HCC); Acute Embolism [...] has e electric, gas, oil, or water [employer] threatened to shut off services in your [...] Answer Date Recorded PHQ-2 Score 0 02/07/2024 [facility] of Occupat ional Health - Occupational Stress [...] your living situation today? I have a [facility] place to live 11/08/2024 Education Answer Date Recorded What is the highest level of school you have completed or the highest degree you have received? 12th grade 10/18/2022 Sex and Gender Information Value Date Recorded Sex Assigned at Male 06/26/2018 4:20 PM DATA ANALYSIS ASSISTANT Legal Sex Male 3:33 AM DATA ANALYSIS ASSISTANT Gender Identity Not on file Sexual [...] AM CDT Appointment Department of Radiology in [place], [place] [address] [address] Pablo Vo M.D. [address] [place] [address] 02/11/2025 2:40 PM CDT Office Visit Department of Oncology in [place], [place] [address] [address] Pablo Vo M.D. [address] [place] [address] documented as of this encounter Procedures Procedure [...] Vo M.D. LAB BLOOD ADD-ON Final Result [facility] [address] [place] [address], [facility] in [place] [address] [place] [address] documented in this encounter Visit Diagnoses Diagnosis Embolus Pulmonary (HCC) Acute Embolism And Thrombosis Of Other Specified Deep Vein Of Lower Extremity Bilateral (HCC) documented in this encounter Additional Health Concerns Assessment Noted Time PHQ-9 Depression Total Score: 10 018 11:00 AM CDT documented as of this encounter Care Teams Tank Tender Relationship Specialty Start Date End Date Jeff Reyes M.D. [address] [place] [phone] PCP - General 03/14/24 documented as of this encounter
--- OUTSIDE RECORDS SUMMARY | 2024-11-16 13:15 | XMS_ITS | Encounter Summary ---
Author Organization [facility] Address [address] [place] [address] Care Team Providers Care Stock Buyer Name Role Phone Jeff Reyes M.D. Primary Care Provider [phone] Reason for Referral * MRI/CAT/PET Scan (Routine) - Closed Specialty Diagnoses / Procedures Referred By Jono donohue Referred To Contact Radiology Diagnoses Embolus Pulmonary (HCC) Acute Embolism And Thrombosis Of Other Specified Deep Vein Of Lower Extremity Bilateral (HCC) Procedures CT Chest Angiogram and Pulmonary Arteries with IV Contrast CT Chest Angiogram with IV Contrast Pablo Vo M.D. [address] [place] [address] Phone: tel: fax: [facility] Referral ID Status Reason Start Date Expiration Date Visits Re quested Visits Authorized [id number] Closed 11/12/2024 02/12/2026 1 1 * Outpatient (Routine) - Authorized Specialty Diagnoses / Procedures Referred By Jono donohue Referred To Contact Oncology Pablo Vo M.D. [address] [place] [address] Phone: tel: [facility] Region Referral ID Status Reason Start Date Expiration Date V isits Requested Visits Authorized [id number] Authorized 11/12/2024 05/14/2026 1 1 * Outpatient (Routine) - Closed Specialty Diagnoses / Procedures Referred By Jono donohue Referred To Contact Diagnoses Embolus Pulmonary (HCC) Acute Embolism And Thrombosis Of Other Specified Deep Vein Of Lower Extremity Bilateral (HCC) Procedures US Lower Extremity Veins Bilateral Pablo Vo M.D. [address] [place] [address] Phone: tel: fax: [facility] Region Referral ID Status Reason Start Date Expiration Date Visits Re quested Visits Authorized [id number] Closed 11/12/2024 02/12/2026 1 1 Reason for Visit * Reason Comments Consult * Appointment Request (Routine) - Closed Specialty Diagnoses / Procedures Referred By Jono donohue Referred To Contact Hematology Diagnoses Thrombophilia Personal History Bijan Crawford M.D. [address] [place] [address] Phone: tel: fax: Referral ID Status Reason Start Date Expiration Date Visits Re quested Visits Authorized [id number] Closed 10/18/2024 01/18/2026 1 1 Encounter Details Date Type Department Care Team (Latest Contact Info) Description 11/12/2024 9:00 AM CDT Comprehensive Visit Department of Oncology in [place], [place] [address] [place] [address] Pablo Vo M.D. [address] [place] [phone] Embolus Pulmonary (HCC) (Primary Dx); Acute Embolism [...] 0.6 oz pur e alcohol) [facility] Utilities Answer Date Recorded In the past [...] How often do you attend chur or sikh services? Never 10/18/2022 Do you belong to any clubs o r organizations such as shinto groups, unions, fraternal or athletic groups, or [...] 0 02/07/2024 [facility] - Occupational Stress Questionnaire Answer [...] Sex Assigned at Male 06/26/2018 4:20 PM RIVET TAPPING MACHINE OPERATOR Legal Sex Male 3:33 AM RIVET TAPPING MACHINE OPERATOR Gender Identity Not on file [...] Body Mass Index 34.23 09/15/2024 3:21 PM RIVET TAPPING MACHINE OPERATOR documented in this encounter Consult Notes * Pablo Vo M.D. - 11/12/2024 9:00 AM CDT PRIMARY CARE PHYSICIAN Jeff Reyes M.D. REQUESTING PROVIDER Bijan Crawford M.D. [address] [place] [phone] REASON FOR VISIT Bilateral PE/DVT SUBJECTIVE HISTORY OF PRESENT ILLNESS Mr. Ramirez is a very pleasant 74 y.o. gentleman with a history of bilateral PE/DVT as follows: Oncology History Embolus Pulmonary (HCC) 08/08/2024 Initial Diagnosis Embolus Pulmonary (HCC) initially presented to [place] [facility] from [facility] with right lower quadrant pain directly transferred to [place] for further management of bilateral PE with [...] it. Otherwise, for an elective cholecystectomy, per [place] KASANDRA this was be considered as a [...] AM CDT Appointment Department of Radiology in [place], [place] [address] [phone] Pablo Vo M.D. [address] [place] [address] 02/11/2025 2:40 PM CDT Office Visit Department of Oncology in [place], [place] [address] [phone] Pabol Vo M.D. [address] [place] [address] Scheduled Referrals Name Type Priority Associated Diagnoses [...] and management can be found on the Online [employer] site. Link [email or web address].org/topic/clinical-answers/[email or web address]/[email or web address] [email or web address] Procedure Note Codey Saavedra M.D. - 11/14/2024 [...] thrombosis and management can be found on theAskeÇift site. [email or web address].[facility].org/topic/clinical-answers/[email or web address]/cpm -2049 1725 IMPRESSION: Negative for acute DVT. [...] ventricular dysfunction are absent. Pablo Vo M.D. [facility] CT PROCEDURES Final Result * Creatinine with [...] Vo M.D. LAB BLOOD ADD-ON Final Result [facility] [address] [place] [address], [facility] OWAT [facility] in [place] [address] [place] [address] documented in this encounter Visit Diagnoses Diagnosis [...] documented as of this encounter Care Teams Stock Buyer Relationship Specialty Start Date End Date Jeff Reyes M.D. [address] [place] [phone] PCP - General 03/14/24 documented as of this encounter
[2024-11-16 13:16] LABS: WBC Urine 25-50 (0-5)
[2024-11-16 13:17] LABS: Bacteria Urine Many; Squamous Epithelial Cell Urine Few (None-Few)
[2024-11-16 13:22] LABS: Lactate* 1.5 mmol/L (0.5-1.9)
[2024-11-16 13:24] LABS: Eosinophils Absolute Auto 0.01 K/uL (0.00-0.50); Eosinophils Percent Auto 0.1 % (0.0-7.0); Hematocrit 35.1 % (37.0-53.0); Immature Granulocytes Abs Auto 0.05 K/uL (0.00-0.30); Immature Granulocytes Pct Auto 0.7 %; Lymphocytes Percent Auto 7.4 % (20-44); Mean Corpuscular HGB Conc 31 gm/dL (32-36); Mean Corpuscular Hemoglobin 27 pg (26-34); Mean Corpuscular Volume 85 fL (80-100); Monocytes Percent Auto 2.4 % (0.0-11.0); Neutrophils Percent Auto 89.4 % (42.0-72.0); Platelet Count* 197 K/uL (140-440); RDW Coefficient of Variation % 17.5 % (11.5-15.5); Red Blood Count 4.11 m/uL (4.30-5.90); White Blood Count* 7.58 K/uL (4.50-11.00)
[2024-11-16 13:24] LABS: Creatinine, Point-of-Care* 1.2 mg/dl (0.6-1.3)
[2024-11-16 13:27] LABS: Slide Review Reflex No
[2024-11-16 13:44] LABS: Albumin* 3.7 g/dL (3.3-5.0); Chloride* 100 mmol/L (96-114); Potassium* 4.4 mmol/L (3.6-5.1); Sodium* 134 mmol/L (135-149)
[2024-11-16 13:46] LABS: Blood Urea Nitrogen* 21 mg/dL (7-30); Est. Creatinine Clearance* 75.35; Estimated Glomerular Filt Rate 79 ml/min
[2024-11-16 13:47] LABS: Alanine Aminotransferase* 32 U/L (4-50); Alkaline Phosphatase* 98 U/L (40-150); Anion Gap 9 mEq/L (7-15); Aspartate Amino Transferase* 33 U/L (12-35); Bilirubin Total* 0.7 mg/dL (0.1-1.5); Carbon Dioxide* 25 mmol/L (20-32); Lipase* 36 U/L (23-300)
[2024-11-16 13:48] LABS: Calcium* 9.1 mg/dL (8.4-10.6); Glucose* 274 mg/dL (60-115)
[2024-11-16 14:03] LABS: PCR FLU A Negative PCR FLU A (Negative); PCR FLU B Negative PCR FLU B (Negative); SARS PCR* Negative SARS-CoV-2 (Negative)
[2024-11-16 14:08] LABS: C Reactive Protein* 23.7 mg/dL (0.5-1.0)
[2024-11-16] MEDS: MEROPENEM 1 GM in 0.9 % SODIUM CHLORIDE Mini-bag 100 ML IVPB (15:10)
--- NOTE | 2024-11-16 16:18 | CRLHL7_ITS ---
For Patients: As a result of the Century Cures Act, medical imaging exams and procedure reports are released immediately into your electronic medical record. You may view this report before your referring provider. If you have questions, please contact your health care provider. INDICATION: 74 year-old male. Pain and swelling of the right wrist. No history of trauma provided. TECHNIQUE: Three views of the right wrist. COMPARISON: August 20, 2024. FINDINGS: Mild diffuse skeletal demineralization may be due to disuse/under use. Mild periarticular soft tissue swelling. Please correlate clinically. Chondrocalcinosis within the wrist/triangular fibrocartilage seen previously. There is narrowing of the radiocarpal joint space as well as the scapholunate articulation. There is an old presumed fracture deformity of the distal right 5th metacarpal. No acute fracture or dislocation. No active erosions. IMPRESSION : 1. Skeletal demineralization and osteoarthritis. 2. Chondrocalcinosis. 3. Old fracture deformity distal right 5th metacarpal. Dictated by Naldo Fair MD @ 11/16/2024 5:17:39 PM (Electronically Signed)
--- NOTE | 2024-11-16 16:40 | P.IMHP_ITS ---
Assessment and Plan Assessment and plan (1) Fever: Problem comment: [facility] Staff there concerned about the appearance of his wound on his left buttock. Other potential sources of infection include cholecystostomy tube and indwelling Eason. Cultures are pending. Broad-spectrum IV antibiotics pending clinical course. Status: Acute (2) Hypertension: Problem comment: Hold nifedipine pending clinical course Status: Acute (3) Right wrist pain: Problem comment: Clinically diagnosed with gout yesterday. History of elevated uric acid in July 2024. Started on prednisone. Records indicate possible history of rheumatoid arthritis as well. Status: Acute (4) Acute UTI: Status: Acute (5) Cellulitis: Status: Acute (6) Decubitus ulcer of sacral area: Problem comment: Consult general surgery for recommendations on wound care Status: Acute (7) Obesity: Status: Acute (8) Neurogenic bladder: Status: Acute (9) H/O insertion of cholecystostomy tube: Status: Acute (10) Eason catheter in place: Status: Acute (11) Elevated blood sugar: Problem comment: Suspect diabetes. Check hemoglobin A1c. Start sliding scale insulin due to concomitant use of prednisone for suspected gout. Status: Acute (12) Hyperuricemia: Problem comment: History of elevated uric acid. Clinically diagnosed yesterday with gout in right wrist and started on prednisone. Empirically begin allopurinol low-dose as well Status: Acute Plan 74-year-old male admitted with onset of fever and altered mental status in the past day. Multiple potential sources of infection including right buttock ulcer with cellulitis, UTI with indwelling Eason catheter, cholecystitis with cholecystostomy tube. All these areas have been cultured and broad-spectrum antibiotics pending culture and clinical course. Total Time Spent Total Time Spent: Total time spent today is 90 minutes in coordination of care, reviewing outside records, discussing with other providers and with patient ongoing management of current illness Hospitalist- H&P: HPI History of Present Illness Date Seen: 11/16/24 Chief complaint: wound care Narrative: Emergency department HPI: 74 yo M with a complex medical history including multiple sclerosis limiting his ability to transfer, paraplegia (has been living in [facility] [place] for the past few years), history of bilateral pulmonary emboli (diagnosed on CT chest/abdomen/pelvis 08/07/2024), cholecystostomy tube (diagnosed on CT chest/abdomen/pelvis done here in the ER 08/07/2024. At that time labs showed white count of 18, CRP of 35. LFTs were normal. He was ultimately transferred to [facility] for cholecystostomy tube since he was also requiring anticoagulation for his pulmonary emboli diagnosed that visit. Still has indwelling cholecystostomy tube. Says that there are plans in the works through the [employer] system to the take his cholecystostomy tube out and do a laparoscopic cholecystectomy. Nothing definitively planned.), he also has a history bilateral lower extremity DVTs (diagnosed by lower extremity ultrasound 08/07/2024), indwelling Eason catheter for neurogenic bladder from MS. He has had trouble with urinary retention for decades because of his MS and prior to coming into the care center he had done intermittent self catheterization at home. He has had the Eason in place for the past couple of years. He does get occasional UTIs. He most recently had his Eason catheter changed a few days ago and says that the change went well. Most recent UTI was perhaps a month or so ago. He also has a long-term history of sacral ulcers and apparently has need surgical debridement for a sacral ulcer and a heel ulcer in 2017. Managed with a wound [facility] at that time. It does not sound like he currently is working with the [place] [facility] but he may have seen them in the past, he thinks. He sent to the ER today by EMS from his care facility with concern that he has a fever. His nurses from his care facility are concerned that he has an infection on his low sacral/buttock ulcer. He says that the ulcers have been there for the past few weeks but only started to hurt a few days ago. He started to feel feverish in warm yesterday. Today his nurses noted malodorous purulent drainage from the wounds so sent him here to the ER. He says his catheter has been draining normal urine. We note that his cholecystostomy tube is draining brown material. He says that is not normal but he is not sure how many days or weeks it has been draining brown. He does have right upper quadrant pain but is not really worse than his chronic baseline. Hospitalist HPI: Patient tells me he is having no abdominal pain or chest pain. He had an episode of vomiting about 2 weeks ago but thinks he has been eating normally since that time. His code status has been full code per [facility] but he tells me today that he requests DNR status. He has sleep apnea but his CPAP is broken. He is awaiting medical evaluation and orders for a new CPAP machine. He developed right wrist pain yesterday. He was diagnosed with gout and started on prednisone 60 mg daily which probably began today in the [facility]. [facility] Medical History (Updated 11/16/24 @ 17:11 by Rodolfo James MD) Hyperuricemia ?E79.0 - Hyperuricemia without signs of inflammatory arthritis and tophaceous disease (ICD-10) Elevated blood sugar ?R73.9 - Hyperglycemia, unspecified (ICD-10) Hyperlipidemia ?E78.5 - Hyperlipidemia, unspecified (ICD-10) Hypertension ?I10 - Essential (primary) hypertension (ICD-10) Coronary artery disease ?I25.10 - Atherosclerotic heart disease of [place] coronary artery without angina pectoris (ICD-10) Fracture, intertrochanteric, right femur ?S72.141A - Displaced intertrochanteric fracture of right femur, initial encounter for closed fracture (ICD-10) Sleep apnea ?G47.30 - Sleep apnea, unspecified (ICD-10) Eason catheter in place ?Z97.8 - Presence of other specified devices (ICD-10) Neurogenic bladder ?N31.9 - Neuromuscular dysfunction of bladder, unspecified (ICD-10) Obesity ?E66.9 - Obesity, unspecified (ICD-10) Multiple sclerosis ?G35 - Multiple sclerosis (ICD-10) Surgical History (Updated 11/16/24 @ 16:57 by Rodolfo James MD) H/O insertion of cholecystostomy tube ?Z98.890 - Other specified postprocedural states (ICD-10) Family History (Updated 11/16/24 @ 16:58 by Rodolfo James MD) Father Coronary artery disease High blood pressure High cholesterol Sleep apnea Social History (Updated 11/16/24 @ 16:59 by Rodolfo James MD) Narrative: Resident of [facility]. Daughter Malika is healthcare power of dietitian consultant. Code status is DNR. Remote history of smoking Smoking Status: Former smoker What tobacco products do you use: cigarettes Smoking quit date/years: <= 15 years ago Do you use any of these nicotine containing products: None Second hand tobacco smoke exposure: No How often do you have a drink containing alcohol: never AUDIT-C Alcohol total score: 0 Non-prescribed substance use: denies use service: No Meds Home Medications and Allergies Home Medications ?Medication ?Instructions ?Recorded ?Confirmed ?Type acetaminophen 500 mg tablet 1,000 mg PO TID 08/07/24 11/16/24 History aspirin 81 mg tablet,delayed 81 mg PO DAILY 08/07/24 11/16/24 History release calcium carbonate (Zachary-Gest 400 mg PO BID 08/07/24 11/16/24 History Antacid) cholecalciferol (vitamin D3) 25 25 mcg PO DAILY 08/07/24 11/16/24 History mcg (1,000 unit) tablet (Vitamin D3) furosemide 40 mg tablet 40 mg PO DAILY 08/07/24 11/16/24 History lisinopril 40 mg tablet 40 mg PO DAILY 08/07/24 11/16/24 History metoprolol succinate 100 mg 100 mg PO DAILY 08/07/24 11/16/24 History tablet,extended release 24 hr nifedipine 90 mg tablet,extended 90 mg PO DAILY 08/07/24 11/16/24 History release 24 hr pantoprazole 40 mg tablet,delayed 40 mg PO BID 08/07/24 11/16/24 History release polyethylene glycol 3350 17 17 g PO DAILY 08/07/24 11/16/24 History gram/dose oral powder potassium chloride 10 mEq 10 meq PO BIDWM 08/07/24 11/16/24 History capsule,extended release apixaban 5 mg tablet (Eliquis) 5 mg PO BID 11/16/24 11/16/24 History atorvastatin 80 mg tablet 80 mg PO HS 11/16/24 11/16/24 History bacitracin 500 unit/gram topical 1 applic topical BID 11/16/24 11/16/24 History ointment baclofen 10 mg tablet 10 mg PO BID 11/16/24 11/16/24 History bisacodyl 10 mg rectal suppository 10 mg LA DAILY PRN 11/16/24 11/16/24 History diclofenac sodium 1 % topical gel 2 g topical BID PRN 11/16/24 11/16/24 History furosemide 20 mg tablet 20 mg PO QPM 11/16/24 11/16/24 History latanoprost 0.005 % eye drops 1 drp ophthalmic (eye) HS 11/16/24 11/16/24 History ondansetron HCl 4 mg tablet 4 mg PO Q6H PRN 11/16/24 11/16/24 History polyethylene glycol 3350 17 gram 17 g PO DAILY PRN 11/16/24 11/16/24 History oral powder packet (Gavilax) prednisone 20 mg tablet 60 mg PO DAILY 11/16/24 11/16/24 History sennosides 8.6 mg-docusate sodium 2 tab-cap PO DAILY 11/16/24 11/16/24 History 50 mg tablet (Senna Plus) sodium hypochlorite 0.057 % 1 applic topical Q8H 11/16/24 11/16/24 History irrigation solution (Anasept) Allergies Allergy/AdvReac Type Severity Reaction Status Date / Time Haemophilus B polysaccharide Allergy Unknown Verified 08/07/24 14:59 conj w vancomycin Allergy Unknown Verified 08/07/24 14:59 Exam Narrative: Exam Narrative: He is sleepy and difficult to arouse. Easily falls back asleep when undisturbed. Difficulty giving history of recent events. Head is without trauma. Eyes are normal. Sclerae nonicteric. No facial asymmetry. Oropharynx with small airway. Dr. Mucous membranes. Neck is supple without mass or adenopathy. No apparent jugular venous distension. Respirations are clear to auscultation. No wheezing rales rhonchi. Breathing is unlabored. Cardiovascular: S1-S2 distant heart sounds. Regular rate and rhythm. Abdomen is soft without tenderness or mass. Right upper quadrant has a percutaneous drainage tube draining bile. No significant erythema around the drain site. External genitalia unremarkable except for Eason catheter draining a clear yellow urine. Lower extremities with minimal edema. He has minimal movement in his left foot and ankle. None in his right. Upper extremities he moves fairly well though weekly. Right wrist is wrapped in an elastic bandage. This is re moved to show mild swelling of the hand and wrist. No marked erythema or warmth. Palpation shows tenderness primarily over the area of the ulnar styloid. No obvious joint effusion. He does have moderate discomfort with maximum flexion and extension. No other apparent joint effusions or tenderness on examination. No other significant skin abnormalities Const: Vital Signs, click to edit/add: Vital Signs - 24 hr 11/16/24 12:13 11/16/24 14:09 11/16/24 14:13 Temperature 97.6 F 97.9 F Pulse Rate Pulse Rate [Pulse Oximeter] 71 70 Respiratory Rate 18 14 Blood Pressure [Ri ght Upper Arm] 127/51 L 121/61 Pulse Oximetry 94 86 L 93 Oxygen Delivery Me thod Room Air Room Air Nasal Cannula Oxygen Flow Rate 2 11/16/24 14:17 11/16/24 14:21 11/16/24 14:30 Temperature Pulse Rate 65 72 Pulse Rate [Pulse Oximeter] Respiratory Rate Blood Pressure [Ri ght Upper Arm] Pulse Oximetry 92 93 98 Oxygen Delivery Me thod Nasal Cannula Oxygen Flow Rate 2 11/16/24 14:45 11/16/24 15:00 11/16/24 15:15 Temperature Pulse Rate 71 75 75 Pulse Rate [Pulse Oximeter] Respiratory Rate Blood Pressure [Ri ght Upper Arm] Pulse Oximetry 88 95 96 Oxygen Delivery Me thod Oxygen Flow Rate Documenting provider has reviewed patient's vital signs: yes Hospitalist - H&P: Result Labs Labs: Short CBC 11/16/24 Range/Units 13:06 WBC 7.58 (4.50-11.00) K/uL Hgb 11.0 L (13.5-17.5) gm/dL Hct 35.1 L (37.0-53.0) % Plt Count 197 (140-440) K/uL BMP 11/16/24 13:06 Sodium 134 L Potassium 4.4 Chloride 100 Carbon Dioxide 25 BUN 21 Creatinine 1.0 Glucose 274 H Calcium 9.1 Liver Function 11/16/24 Range/Units 13:06 Total Bilirubin 0.7 (0.1-1.5) mg/dL AST 33 (12-35) U/L ALT 32 (4-50) U/L Alkaline Phosphatase 98 (40-150) U/L Albumin 3.7 (3.3-5.0) g/dL Urine 11/16/24 Range/Units Unknown Urine Color Dark yellow (Yellow) Urine Appearance Cloudy A (Clear) Urine pH >= 9.0 H (5.0-8.5) Ur Specific [place] 1.010 (1.000-1.030) Urine Protein 2+ A (Negative) Urine Glucose (UA) Negative (Negative) Imaging CT scan - abdomen: Radiologist's impression: INDICATION: Fever. History of cholecystitis with percutaneous cholecystostomy tube. COMPARISON: 08/30/2024 MRI of the abdomen TECHNIQUE: CT of the abdomen and pelvis with intravenous contrast (132 milliliters Isovue 370). FINDINGS: Lung bases: No pleural effusion. Liver: Smooth hepatic contour. Indeterminate hypoattenuating lesion in the hepatic dome measuring 6.5 centimeters (2/22) and indeterminate hypoattenuating lesion in hepatic segment 7 measuring 1 centimeter (2/37) are unchanged in size since 08/07/2024, although the hepatic dome lesion has decreased in attenuation since 08/07/2024 and now demonstrates mostly water attenuation aside from a unchanged 1 centimeter hyperattenuating nodule at its anterior aspect. Gallbladder and biliary tree: The gallbladder has been decompressed with a percutaneous cholecystostomy tube. There is mild pericholecystic fat stranding. Spleen: Mild splenomegaly. Pancreas: Normal. Adrenal glands: Mild nodular thickening of the right adrenal gland is unchanged. Normal left adrenal. Kidneys and ureters: No hydroureteronephrosis. There are several bilateral simple renal cysts as well as a few hypoattenuating left renal lesions which were reported to represent proteinaceous/hemorrhagic cysts on the comparison MRI. Bladder: The bladder has been decompressed with a Eason catheter. There is trace gas in the bladder presumably due to instrumentation. Visualized reproductive organs: Unremarkable CT appearance. Gastrointestinal tract: No focal abnormally dilated loops of bowel. Normal appendix. Peritoneal cavity: No free fluid or free air. Lymph nodes: Similar mildly enlarged right upper abdominal quadrant lymph nodes such as a 15 millimeter peripancreatic node (2/56). Vessels: No abdominal aortic aneurysm. Moderate to severe atherosclerotic vascular calcifications. Abdominal and pelvic wall: There is a 8.2 centimeter lobulated lesion with central mostly fat attenuation, peripheral soft tissue attenuation, and multiple septations in the subcutaneous fat of the left paramidline posterior pelvis which is grossly similar since a 08/07/2024 CT of the abdomen, possibly representing fat necrosis or postoperative change (2/136). There is also some scarring at the posterior aspect of the right paramidline pelvic subcutaneous fat. Tiny fat containing umbilical hernia. Status post percutaneous cholecystostomy. Partially imaged gynecomastia. Bones: There are osseous degenerative changes. Multiple old left-sided rib fractures. Status post right proximal femur ORIF. IMPRESSION: 1. No acute findings in the abdomen or pelvis. 2. The gallbladder is decompressed by a percutaneous cholecystostomy tube. There is mild pericholecystic fat stranding. 3. Two indeterminate hepatic lesions are similar since and more fully characterized on the 08/30/2024 MRI. 4. Similar mildly enlarged right upper abdominal quadrant lymph nodes. 5. There is a 8.2 centimeter lobulated lesion with central mostly fat attenuation, peripheral soft tissue attenuation, and multiple septations in the subcutaneous fat of the left paramidline posterior pelvis which is grossly similar since a 08/07/2024 CT of the abdomen, possibly representing fat necrosis or postoperative change. Correlate with clinical history. 6. Several additional chronic and incidental findings are detailed above. Chest x-ray: Radiologist's impression: Indication: : Fever TECHNIQUE: Single-view chest. FINDINGS: The lungs are clear. The heart, mediastinum and pulmonary vessels are of normal size. There is no evidence of pleural disease. Low lung volumes. IMPRESSION: Negative chest.
[2024-11-16] MEDS: diphenhydrAMINE 25 MG CAPSULE PO (17:28)
[2024-11-16] MEDS: FAMOTIDINE 20 MG TABLET PO (17:28)
[2024-11-16] MEDS: FUROSEMIDE 20 MG TABLET PO (17:29)
[2024-11-16] MEDS: POTASSIUM CHLORIDE 10 MEQ CAPSULE ER PO (17:29)
[2024-11-16 18:04] LABS: Hemoglobin A1C* 7.6 % (0-5.6)
[2024-11-16] MEDS: VANCOMYCIN 2 GM/400 ML 2 GM/400 ML PIGGYBACK IVPB (18:04)
[2024-11-16] MEDS: INSULIN ASPART 100 UNIT/ML SUBCUT ×2 (18:04→22:12)
--- NOTE | 2024-11-16 19:18 | PC.NURSE ---
End of Shift: Patient pleasant and cooperative, A&O. VSS, afebrile. SpO2 maintained above 90% on RA. Bed bound. Tolerating regular diet.
[2024-11-16 20:51] LABS: C Reactive Protein* 21.4 mg/dL (0.5-1.0)
[2024-11-16] MEDS: ACETAMINOPHEN 500 MG TABLET 1000 MG PO (22:10)
[2024-11-16] MEDS: BACLOFEN 10 MG TABLET PO (22:10)
[2024-11-16] MEDS: APIXABAN 5 MG TABLET PO (22:11)
[2024-11-16] MEDS: OMEPRAZOLE 20 MG CAPSULE DR 40 MG PO (22:11)
[2024-11-16] MEDS: CALCIUM CARBONATE 500 MG CHEW 400 MG PO (22:11)
[2024-11-16] MEDS: ATORVASTATIN CALCIUM 40 MG TABLET 80 MG PO (22:11)
[2024-11-16] MEDS: SODIUM CHLORIDE 0.9 % (FLUSH) 10 ML SYRINGE 5 ML IVF (22:13)
[2024-11-16] MEDS: PIPERACILLIN/TAZOBACTAM 3.375 GM in 0.9 % SODIUM CHLORIDE Mini-bag 100 ML IVPB (22:14)
[2024-11-17] VITALS (7 sets, daily range): BP systolic 116–139; BP diastolic 51–78; PULSE 72–85; RESP 14–18; TEMP 36.3–36.6; O2SAT 92–95
[2024-11-17] MEDS: PIPERACILLIN/TAZOBACTAM 3.375 GM in 0.9 % SODIUM CHLORIDE Mini-bag 100 ML IVPB ×3 (04:10→16:34)
--- NOTE | 2024-11-17 06:32 | PC.NURSE ---
END OF SHIFT: Pt alert, oriented, with confusion, and vitally stable. Pt refused blood glucose draw despite multiple attempts, reported to MD who went in and talked to pt. Pt then allowed us to check blood sugar (211). Pt educated on medications, verbalizes understanding. Eason patent and draining, urine cloudy and strong smelling. Cholecystostomy patent and draining, drainage brown tinted and strong smelling. Pt full assist tolerated well. Turned and repositioned throughout shift. Mepilex on buttocks C/D/I. Pt in bed, appears to be resting, call light within reach.?
[2024-11-17 06:36] LABS: Basophils Absolute Auto 0.01 K/uL (0.00-0.30); Basophils Percent Auto 0.1 % (0.0-3.0); Eosinophils Absolute Auto 0.12 K/uL (0.00-0.50); Eosinophils Percent Auto 1.2 % (0.0-7.0); Hematocrit 33.8 % (37.0-53.0); Hemoglobin* 10.5 gm/dL (13.5-17.5); Immature Granulocytes Abs Auto 0.12 K/uL (0.00-0.30); Immature Granulocytes Pct Auto 1.2 %; Lymphocytes Percent Auto 6.3 % (20-44); Mean Corpuscular HGB Conc 31 gm/dL (32-36); Mean Corpuscular Hemoglobin 27 pg (26-34); Mean Corpuscular Volume 86 fL (80-100); Monocytes Percent Auto 2.8 % (0.0-11.0); Neutrophils Percent Auto 88.4 % (42.0-72.0); Platelet Count* 199 K/uL (140-440); RDW Coefficient of Variation % 17.4 % (11.5-15.5); Red Blood Count 3.94 m/uL (4.30-5.90); White Blood Count* 9.81 K/uL (4.50-11.00)
[2024-11-17 06:42] LABS: HCO3 VBG 26 mmol/L (21-28); PCO2 VBG 42 mmHG (40-50); PO2 VBG 43.4 mmHG (25-47); pH VBG 7.404 (7.32-7.43)
[2024-11-17 06:50] LABS: Slide Review Reflex No
[2024-11-17 07:08] LABS: Chloride* 105 mmol/L (96-114); Potassium* 3.6 mmol/L (3.6-5.1); Sodium* 137 mmol/L (135-149)
[2024-11-17 07:11] LABS: Blood Urea Nitrogen* 21 mg/dL (7-30); Creatinine* 0.8 mg/dL (0.5-1.5); Est. Creatinine Clearance* 75.35; Estimated Glomerular Filt Rate 93 ml/min
[2024-11-17 07:12] LABS: Anion Gap 9 mEq/L (7-15); Calcium* 9.1 mg/dL (8.4-10.6); Carbon Dioxide* 23 mmol/L (20-32); Glucose* 200 mg/dL (60-115)
[2024-11-17] MEDS: diphenhydrAMINE 25 MG CAPSULE PO ×2 (08:27→20:52)
[2024-11-17] MEDS: FAMOTIDINE 20 MG TABLET PO ×2 (08:28→20:52)
[2024-11-17] MEDS: INSULIN ASPART 100 UNIT/ML SUBCUT ×4 (08:33→22:09)
[2024-11-17] MEDS: VANCOMYCIN 1.75 GM/350 ML 1.75 GM/350 ML PIGGYBACK IVPB ×2 (09:04→22:07)
[2024-11-17] MEDS: polyethylene glycoL 3350 17 GM PACK PO (09:11)
[2024-11-17] MEDS: ASPIRIN 81 MG TABLET EC PO (09:12)
[2024-11-17] MEDS: lisinopriL 20 MG TABLET 40 MG PO (09:12)
[2024-11-17] MEDS: POTASSIUM CHLORIDE 10 MEQ CAPSULE ER PO ×2 (09:12→17:41)
[2024-11-17] MEDS: OMEPRAZOLE 20 MG CAPSULE DR 40 MG PO ×2 (09:13→22:08)
[2024-11-17] MEDS: FUROSEMIDE 40 MG TABLET PO (09:13)
[2024-11-17] MEDS: METOPROLOL SUCCINATE (XL) 100 MG TAB PO (09:13)
[2024-11-17] MEDS: SENNOSIDES/DOCUSATE TABLET 2 TAB PO (09:13)
[2024-11-17] MEDS: ACETAMINOPHEN 500 MG TABLET 1000 MG PO ×3 (09:14→22:08)
[2024-11-17] MEDS: allopurinoL 100 MG TABLET PO (09:16)
[2024-11-17] MEDS: BACLOFEN 10 MG TABLET PO ×2 (09:16→22:08)
[2024-11-17] MEDS: APIXABAN 5 MG TABLET PO (09:16)
[2024-11-17] MEDS: CALCIUM CARBONATE 500 MG CHEW 400 MG PO ×2 (10:34→22:08)
[2024-11-17] MEDS: SODIUM CHLORIDE 0.9 % (FLUSH) 10 ML SYRINGE 5 ML IVF ×2 (10:35→22:10)
--- NOTE | 2024-11-17 12:46 | PM.IMPN1 ---
Assessment and Plan Assessment and plan (1) Fever: Problem comment: - 11/16 Patient had fever and altered mental status in the group home today. Staff there concerned about the appearance of his wound on his left buttock. Other potential sources of infection include cholecystostomy tube and indwelling Eason. Cultures are pending. Broad-spectrum IV antibiotics pending clinical course. - 11/17 Afebrile overnight. WBC wnl. CRP elevated yesterday. I spoke with general surgery who unroofed and cultured left buttock wound, which appears to be source of infection. Additionally, he has gram neg rods in the cholecystostomy fluid and urine. Wound culture pending. Continue vanco/Zosyn Status: Acute (2) Decubitus ulcer of sacral area: Problem comment: Consult general surgery for recommendations on wound care - 11/17 I spoke with general surgery. Deep wound culture was obtained at bedside by Dr. Mejia. She would like him to be NPO after MN and to hold Eliquis in prep for wound debridement tomorrow. I have ordered those. Continue vanco/zosyn Status: Acute (3) Cellulitis: Problem comment: - as above Status: Acute (4) H/O insertion of cholecystostomy tube: Problem comment: - July 2024 at [facility]. - Mild RUQ pain. I spoke with Dr. Mejia. This pain may be related to an expected sensation of the catheter as it goes through the skin. LFTs reassuring. - Fluid culture growing out G neg aden, continue zosyn/vanco, await final culture results. Status: Chronic (5) Hypertension: Problem comment: - BP low/normal: continue lisinopril, furosemide, metoprolol, continue to HOLD nifedipine Status: Chronic (6) Right wrist pain: Problem comment: Clinically diagnosed with gout yesterday. History of elevated uric acid in July 2024. Started on prednisone. Records indicate possible history of rheumatoid arthritis as well. - 11/17 wrist XR from yesterday reviewed. Status: Acute (7) Acute UTI: Problem comment: - Indwelling catheter - Gram neg aden on UC. On zosyn/vanco. Await final culture results. Status: Acute (8) Obesity: Status: Chronic (9) Neurogenic bladder: Problem comment: - indwelling urinary catheter Status: Chronic (10) Eason catheter in place: Status: Chronic (11) Hyperuricemia: Problem comment: History of elevated uric acid. Clinically diagnosed yesterday with gout in right wrist and started on prednisone. Empirically begin allopurinol low-dose as well Status: Chronic (12) Elevated blood sugar: Problem comment: Suspect diabetes. Check hemoglobin A1c. Start sliding scale insulin due to concomitant use of prednisone for suspected gout. - 11/17 Hgb A1C elevated at 7.6%, meeting the criteria for DM2. Continue SSI. Would benefit from metformin when infection under better control. Status: Acute (13) Normocytic anemia: Problem comment: - noted. Will recheck and check iron studies, B12, folate. Status: Acute Total Time Spent Total Time Spent: Today I spent 60 minutes seeing the patient, reviewing [facility] and [facility] notes/diagnostics/labs, discussing the care plan with general surgery and our care team that includes social work, PT/OT, pharmacy, RT, half-way and documenting my impressions and plan in the medical record. Subjective Time Seen by Provider: 08:45 Date Seen: 11/17/24 Interval history: Vu feels cold and chilled this morning. He has 3 warm blankets, but still feels cold. He otherwise has no complaints. Exam Narrative: Exam Narrative: General: No acute distress. Awake, alert, oriented x3. No pallor. No jaundice. Oropharynx: Clear. Mucous membranes moist. Cardiovascular: Regular rate and rhythm. No murmurs, gallops, or rubs. Respiratory: Clear to auscultation bilaterally. No wheezes or crackles. Abdomen: Bowel sounds present. Soft, these, nondistended, mildly tender around the cholecystostomy tube without erythema, induration, or drainage. Buttocks: Large ulcer with large central black eschar over the posterior left buttock near the gluteal cleft and perineum. Multiple other smaller ulcers of various sizes and stages over the buttocks and sacrum. Extremities: Right wrist wrap was not removed. No lower extremity edema. Const: Vital Signs, click to edit/add: Vital Signs - 24 hr 11/16/24 14:09 11/16/24 14:13 11/16/24 14:17 Temperature 97.9 F Pulse Rate Pulse Rate [Pulse Oximeter] 70 Respiratory Rate 14 Blood Pressure [Le ft Arm] Blood Pressure [Ri ght Arm] Blood Pressure [Ri ght Upper Arm] 121/61 Pulse Oximetry 86 L 93 92 Oxygen Delivery Me thod Room Air Nasal Cannula Nasal Cannula Oxygen Flow Rate 2 2 11/16/24 14:21 11/16/24 14:30 11/16/24 14:45 Temperature Pulse Rate 65 72 71 Pulse Rate [Pulse Oximeter] Respiratory Rate Blood Pressure [Le ft Arm] Blood Pressure [Ri ght Arm] Blood Pressure [Ri ght Upper Arm] Pulse Oximetry 93 98 88 Oxygen Delivery Me thod Oxygen Flow Rate 11/16/24 15:00 11/16/24 15:15 11/16/24 16:17 Temperature 97.7 F Pulse Rate 75 75 Pulse Rate [Pulse Oximeter] Respiratory Rate 18 Blood Pressure [Le ft Arm] Blood Pressure [Ri ght Arm] 120/67 Blood Pressure [Ri ght Upper Arm] Pulse Oximetry 95 96 94 Oxygen Delivery Me thod Room Air Oxygen Flow Rate 11/16/24 16:17 11/16/24 19:00 11/16/24 22:56 Temperature 97.6 F 98.2 F Pulse Rate Pulse Rate [Pulse Oximeter] 71 75 Respiratory Rate 18 18 16 Blood Pressure [Le ft Arm] Blood Pressure [Ri ght Arm] 129/58 L 125/51 L Blood Pressure [Ri ght Upper Arm] Pulse Oximetry 94 92 91 Oxygen Delivery Me thod Room Air Room Air Room Air Oxygen Flow Rate 11/16/24 23:00 11/16/24 23:00 11/17/24 03:00 Temperature Pulse Rate Pulse Rate [Pulse Oximeter] 75 72 Respiratory Rate 16 16 14 Blood Pressure [Le ft Arm] Blood Pressure [Ri ght Arm] 135/78 Blood Pressure [Ri ght Upper Arm] Pulse Oximetry 91 95 Oxygen Delivery Me thod Room Air Room Air Oxygen Flow Rate 2 0 11/17/24 07:00 11/17/24 07:00 11/17/24 07:00 Temperature 97.8 F Pulse Rate Pulse Rate [Pulse Oximeter] 83 83 Respiratory Rate 18 18 18 Blood Pressure [Le ft Arm] Blood Pressure [Ri ght Arm] 128/60 Blood Pressure [Ri ght Upper Arm] Pulse Oximetry 94 94 Oxygen Delivery Me thod Room Air Room Air Oxygen Flow Rate 0 11/17/24 09:14 11/17/24 10:56 Temperature 97.4 F L 97.5 F L Pulse Rate Pulse Rate [Pulse Oximeter] 85 Respiratory Rate 16 Blood Pressure [Le ft Arm] 139/52 L Blood Pressure [Ri ght Arm] Blood Pressure [Ri ght Upper Arm] Pulse Oximetry 95 Oxygen Delivery Me thod Room Air Oxygen Flow Rate 0 Labs Labs: Laboratory Results - last 24 hr 11/16/24 11/16/24 11/16/24 13:00 13:06 13:40 WBC 7.58 RBC 4.11 L Hgb 11.0 L Hct 35.1 L MCV 85 MCH 27 MCHC 31 L RDW Coeff of Rey 17.5 H Plt Count 197 Neut % (Auto) 89.4 H Lymph % (Auto) 7.4 L Storey % (Auto) 2.4 Eos % (Auto) 0.1 Baso % (Auto) 0.0 Neut # (Auto) 6.80 Lymph # (Auto) 0.60 L Storey # (Auto) 0.20 Eos # (Auto) 0.01 Baso # (Auto) 0.00 Abs Immat Gran (auto) 0.05 Imm/Tot Granulo (auto) 0.7 VBG pH VBG pCO2 VBG pO2 VBG HCO3 Sodium 134 L Potassium 4.4 Chloride 100 Carbon Dioxide 25 Anion Gap 9 BUN 21 Creatinine 1.0 Estimated Creat Clear 75.35 Estimated GFR 79 Glucose 274 H Hemoglobin A1c 7.6 H Lactate 1.5 Calcium 9.1 Total Bilirubin 0.7 AST 33 ALT 32 Alkaline Phosphatase 98 C-Reactive Protein 23.7 H Total Protein 7.0 Albumin 3.7 Lipase 36 Urine Color Urine Appearance Urine pH Ur Specific [place] Urine Protein Urine Glucose (UA) Urine Ketones Urine Blood Urine Nitrite Urine Bilirubin Urine Urobilinogen Ur Leukocyte Esterase Urine RBC Urine WBC Ur Squamous Epith Cells Other Sediment Urine Bacteria SARS-CoV-2 (PCR) Negative SARS-CoV-2 Influenza Type A (PCR) Negative PCR FLU A Influenza Type B (PCR) Negative PCR FLU B Lab Acknowledgement Test Added POC Creatinine 1.2 11/16/24 11/16/24 11/17/24 20:00 Unknown 05:53 WBC 9.81 RBC 3.94 L Hgb 10.5 L Hct 33.8 L MCV 86 MCH 27 MCHC 31 L RDW Coeff of Rey 17.4 H Plt Count 199 Neut % (Auto) 88.4 H Lymph % (Auto) 6.3 L Storey % (Auto) 2.8 Eos % (Auto) 1.2 Baso % (Auto) 0.1 Neut # (Auto) 8.70 H Lymph # (Auto) 0.60 L Storey # (Auto) 0.30 Eos # (Auto) 0.12 Baso # (Auto) 0.01 Abs Immat Gran (auto) 0.12 Imm/Tot Granulo (auto) 1.2 VBG pH 7.404 VBG pCO2 42 VBG pO2 43.4 VBG HCO3 26 Sodium 137 Potassium 3.6 Chloride 105 Carbon Dioxide 23 Anion Gap 9 BUN 21 Creatinine 0.8 Estimated Creat Clear 75.35 Estimated GFR 93 Glucose 200 H Hemoglobin A1c 7.6% Lactate Calcium 9.1 Total Bilirubin AST ALT Alkaline Phosphatase C-Reactive Protein 21.4 H Total Protein Albumin Lipase Urine Color Dark yellow Urine Appearance Cloudy A Urine pH >= 9.0 H Ur Specific [place] 1.010 Urine Protein 2+ A Urine Glucose (UA) Negative Urine Ketones Negative Urine Blood 3+ A Urine Nitrite Positive A Urine Bilirubin Negative Urine Urobilinogen 1.0 Ur Leukocyte Esterase 1+ A Urine RBC 10-25 A Urine WBC 25-50 A Ur Squamous Epith Cells Few Other Sediment Urine Bacteria Many A SARS-CoV-2 (PCR) Influenza Type A (PCR) Influenza Type B (PCR) Lab Acknowledgement POC Creatinine Ordering Physician: Rodolfo James M.D. Date of Service: 11/16/24 Procedure(s): XR wrist RT min 3V Accession Number(s): [id number] cc: Rodolfo James M.D.; Bijan Crawford M.D.~ For Patients: As a result of the Cures Act, medical imaging exams and procedure reports are released immediately into your electronic medical record. You may view this report before your referring provider. If you have questions, please contact your health care provider. INDICATION: 74 year-old male. Pain and swelling of the right wrist. No history of trauma provided. TECHNIQUE: Three views of the right wrist. COMPARISON: August 20, 2024. FINDINGS: Mild diffuse skeletal demineralization may be due to disuse/under use. Mild periarticular soft tissue swelling. Please correlate clinically. Chondrocalcinosis within the wrist/triangular fibrocartilage seen previously. There is narrowing of the radiocarpal joint space as well as the scapholunate articulation. There is an old presumed fracture deformity of the distal right 5th metacarpal. No acute fracture or dislocation. No active erosions. IMPRESSION : 1. Skeletal demineralization and osteoarthritis. 2. Chondrocalcinosis. 3. Old fracture deformity distal right 5th metacarpal. Dictated by Naldo Fair MD @ 11/16/2024 5:17:39 PM (Electronically Signed)
--- NOTE | 2024-11-17 12:57 | P.GSCN_ITS ---
History of Present Illness Consult details Date Seen: 11/17/24 Consult date: 11/17/24 Narrative: The patient is a 74-year-old male with a history of multiple sclerosis, paraplegia and recent diagnosis bilateral pulmonary emboli, cholecystostomy tube for cholecystitis. This was placed in [place] in July this year. He also has an indwelling Eason for neurogenic bladder. He was brought to the emergency department by EMS yesterday because he had a fever. He is also noted to have multiple pressure ulcers on his sacrum and ischial tuberosities. He states they have been present for approximately a year and half. They have been painful during that time. He states that they have not done anything specific to care for them at [facility] where he has resided for the last 2 years. He previously did have a pressure ulcer on his sacrum many years ago. He states that this went down to the bone. He does not have an offloading mattress but he does have a Roho cushion in his lift recliner. He states that he sits most of the day. He is unable to reposition himself. He has never had pressure mapping. He also complains of some right upper quadrant pain. And he had a cholecystostomy tube placed at [facility]. He has followed up at [place]. It is unclear what the status of this is. The pain seems to be centered around the drain site. [facility] Medical History (Updated 11/17/24 @ 13:53 by Stella Mejia MD) Hyperuricemia ?E79.0 - Hyperuricemia without signs of inflammatory arthritis and tophaceous disease (ICD-10) Elevated blood sugar ?R73.9 - Hyperglycemia, unspecified (ICD-10) Hyperlipidemia ?E78.5 - Hyperlipidemia, unspecified (ICD-10) Hypertension ?I10 - Essential (primary) hypertension (ICD-10) Coronary artery disease ?I25.10 - Atherosclerotic heart disease of [place] coronary artery without angina pectoris (ICD-10) Fracture, intertrochanteric, right femur ?S72.141A - Displaced intertrochanteric fracture of right femur, initial encounter for closed fracture (ICD-10) Sleep apnea ?G47.30 - Sleep apnea, unspecified (ICD-10) Eason catheter in place ?Z97.8 - Presence of other specified devices (ICD-10) Neurogenic bladder ?N31.9 - Neuromuscular dysfunction of bladder, unspecified (ICD-10) Obesity ?E66.9 - Obesity, unspecified (ICD-10) Multiple sclerosis ?G35 - Multiple sclerosis (ICD-10) Surgical History (Updated 11/16/24 @ 16:57 by Rodolfo James MD) H/O insertion of cholecystostomy tube ?Z98.890 - Other specified postprocedural states (ICD-10) Family History (Updated 11/16/24 @ 16:58 by Rodolfo James MD) Father Coronary artery disease High blood pressure High cholesterol Sleep apnea Social History (Updated 11/16/24 @ 16:59 by Rodolfo James MD) Narrative: Resident of [facility]. Daughter Malika is healthcare power of attorney lawyer. Code status is DNR. Remote history of smoking What is your current living situation?: I presently have a place to live Problems where you live: no known problems Problems where you live details: na In the past 12 months, utilities in danger of being shut off: no In past 12 months, lack of transportation kept you from medical appts, meetings, work, or getting things needed for daily living: no In the past 12 mos, have been you worried that your food would run out before you had money to buy more?: often true In the past 12 mos, the food you bought just didn't last and you didn't have money to buy more?: often true Highest level of school completed/degree received: 12th grade, no diploma Smoking Status: Former smoker What tobacco products do you use: cigarettes Smoking quit date/years: <= 15 years ago Do you use any of these nicotine containing products: None Second hand tobacco smoke exposure: No How often do you have a drink containing alcohol: never AUDIT-C Alcohol total score: 0 Non-prescribed substance use: denies use Caffeine: Yes How often does anyone, including family, friends and others, physically hurt you : never How often does anyone, including family, friends and others, insult or talk down to you: never How often does anyone, including family, friends and others, threaten you with harm: never How often does anyone, including family, friends and others, scream or curse at you: never service: No Health Related Social Needs: food insecurity (Z59.41) Meds Home Medications and Allergies Home Medications ?Medication ?Instructions ?Recorded ?Confirmed ?Type acetaminophen 500 mg tablet 1,000 mg PO TID 08/07/24 11/16/24 History aspirin 81 mg tablet,delayed 81 mg PO DAILY 08/07/24 11/16/24 History release calcium carbonate (Zachary-Gest 400 mg PO BID 08/07/24 11/16/24 History Antacid) cholecalciferol (vitamin D3) 25 25 mcg PO DAILY 08/07/24 11/16/24 History mcg (1,000 unit) tablet (Vitamin D3) furosemide 40 mg tablet 40 mg PO DAILY 08/07/24 11/16/24 History lisinopril 40 mg tablet 40 mg PO DAILY 08/07/24 11/16/24 History metoprolol succinate 100 mg 100 mg PO DAILY 08/07/24 11/16/24 History tablet,extended release 24 hr nifedipine 90 mg tablet,extended 90 mg PO DAILY 08/07/24 11/16/24 History release 24 hr pantoprazole 40 mg tablet,delayed 40 mg PO BID 08/07/24 11/16/24 History release polyethylene glycol 3350 17 17 g PO DAILY 08/07/24 11/16/24 History gram/dose oral powder potassium chloride 10 mEq 10 meq PO BIDWM 08/07/24 11/16/24 History capsule,extended release apixaban 5 mg tablet (Eliquis) 5 mg PO BID 11/16/24 11/16/24 History atorvastatin 80 mg tablet 80 mg PO HS 11/16/24 11/16/24 History bacitracin 500 unit/gram topical 1 applic topical BID 11/16/24 11/16/24 History ointment baclofen 10 mg tablet 10 mg PO BID 11/16/24 11/16/24 History bisacodyl 10 mg rectal suppository 10 mg WI DAILY PRN 11/16/24 11/16/24 History diclofenac sodium 1 % topical gel 2 g topical BID PRN 11/16/24 11/16/24 History furosemide 20 mg tablet 20 mg PO QPM 11/16/24 11/16/24 History latanoprost 0.005 % eye drops 1 drp ophthalmic (eye) HS 11/16/24 11/16/24 History ondansetron HCl 4 mg tablet 4 mg PO Q6H PRN 11/16/24 11/16/24 History polyethylene glycol 3350 17 gram 17 g PO DAILY PRN 11/16/24 11/16/24 History oral powder packet (Gavilax) prednisone 20 mg tablet 60 mg PO DAILY 11/16/24 11/16/24 History sennosides 8.6 mg-docusate sodium 2 tab-cap PO DAILY 11/16/24 11/16/24 History 50 mg tablet (Senna Plus) sodium hypochlorite 0.057 % 1 applic topical Q8H 11/16/24 11/16/24 History irrigation solution (Anasept) carbamide peroxide 6.5 % ear drops 5 drp otic (ear) .WEEK 11/17/24 11/17/24 History (Ear Wax Removal Kit) Allergies Allergy/AdvReac Type Severity Reaction Status Date / Time Haemophilus B polysaccharide Allergy Unknown Verified 08/07/24 14:59 conj w vancomycin Allergy Unknown Verified 08/07/24 14:59 Exam Narrative: Exam Narrative: General: Alert, oriented, no acute distress Respiratory: Breathing nonlabored on room air Abdomen: Protuberant. Cholecystostomy tube in place. Porter bile noted in the tubing. This is nonpurulent. Skin: On his lower back on the right, he has a scar from his prior pressure ulcer. On the left side he has a 2 cm grade 3 pressure ulcer on the lateral and superior aspect of the sacrum. Just posterior to the anus he does have some darkening of the skin with pinpoint ecchymosis. Over his left ischial tuberosity he has a 2 x 4 cm area of eschar. There is no surrounding erythema. . Eason in place. Urine is clear. Const: Vital Signs, click to edit/add: Vital Signs - 24 hr 11/16/24 14:09 11/16/24 14:13 11/16/24 14:17 Temperature 97.9 F Pulse Rate Pulse Rate [Pulse Oximeter] 70 Respiratory Rate 14 Blood Pressure [Le ft Arm] Blood Pressure [Ri ght Arm] Blood Pressure [Ri ght Upper Arm] 121/61 Pulse Oximetry 86 L 93 92 Oxygen Delivery Me thod Room Air Nasal Cannula Nasal Cannula Oxygen Flow Rate 2 2 11/16/24 14:21 11/16/24 14:30 11/16/24 14:45 Temperature Pulse Rate 65 72 71 Pulse Rate [Pulse Oximeter] Respiratory Rate Blood Pressure [Le ft Arm] Blood Pressure [Ri ght Arm] Blood Pressure [Ri ght Upper Arm] Pulse Oximetry 93 98 88 Oxygen Delivery Me thod Oxygen Flow Rate 11/16/24 15:00 11/16/24 15:15 11/16/24 16:17 Temperature 97.7 F Pulse Rate 75 75 Pulse Rate [Pulse Oximeter] Respiratory Rate 18 Blood Pressure [Le ft Arm] Blood Pressure [Ri ght Arm] 120/67 Blood Pressure [Ri ght Upper Arm] Pulse Oximetry 95 96 94 Oxygen Delivery Me thod Room Air Oxygen Flow Rate 11/16/24 16:17 11/16/24 19:00 11/16/24 22:56 Temperature 97.6 F 98.2 F Pulse Rate Pulse Rate [Pulse Oximeter] 71 75 Respiratory Rate 18 18 16 Blood Pressure [Le ft Arm] Blood Pressure [Ri ght Arm] 129/58 L 125/51 L Blood Pressure [Ri ght Upper Arm] Pulse Oximetry 94 92 91 Oxygen Delivery Me thod Room Air Room Air Room Air Oxygen Flow Rate 11/16/24 23:00 11/16/24 23:00 11/17/24 03:00 Temperature Pulse Rate Pulse Rate [Pulse Oximeter] 75 72 Respiratory Rate 16 16 14 Blood Pressure [Le ft Arm] Blood Pressure [Ri ght Arm] 135/78 Blood Pressure [Ri ght Upper Arm] Pulse Oximetry 91 95 Oxygen Delivery Me thod Room Air Room Air Oxygen Flow Rate 2 0 11/17/24 07:00 11/17/24 07:00 11/17/24 07:00 Temperature 97.8 F Pulse Rate Pulse Rate [Pulse Oximeter] 83 83 Respiratory Rate 18 18 18 Blood Pressure [Le ft Arm] Blood Pressure [Ri ght Arm] 128/60 Blood Pressure [Ri ght Upper Arm] Pulse Oximetry 94 94 Oxygen Delivery Me thod Room Air Room Air Oxygen Flow Rate 0 11/17/24 09:14 11/17/24 10:56 Temperature 97.4 F L 97.5 F L Pulse Rate Pulse Rate [Pulse Oximeter] 85 Respiratory Rate 16 Blood Pressure [Le ft Arm] 139/52 L Blood Pressure [Ri ght Arm] Blood Pressure [Ri ght Upper Arm] Pulse Oximetry 95 Oxygen Delivery Me thod Room Air Oxygen Flow Rate 0 Results Labs Labs: White blood cell count on presentation was 7.5. Today is 59.8. CRP yesterday was 21.4. Culture of bile preliminarily growing Gram-negative aden Urine preliminarily growing Gram-negative rods On buttock wound culture from last night pending. Imaging Abdomen CT scan report/results: report reviewed and image reviewed Additional studies: CT scan abdomen pelvis 11/16/2024: IMPRESSION: 1. No acute findings in the abdomen or pelvis. 2. The gallbladder is decompressed by a percutaneous cholecystostomy tube. There is mild pericholecystic fat stranding. 3. Two indeterminate hepatic lesions are similar since and more fully characterized on the 08/30/2024 MRI. 4. Similar mildly enlarged right upper abdominal quadrant lymph nodes. 5. There is a 8.2 centimeter lobulated lesion with central mostly fat attenuation, peripheral soft tissue attenuation, and multiple septations in the subcutaneous fat of the left paramidline posterior pelvis which is grossly similar since a 08/07/2024 CT of the abdomen, possibly representing fat necrosis or postoperative change. Correlate with clinical history. 6. Several additional chronic and incidental findings are detailed above. Please note that all CT scans at this facility use dose modulation, iterative reconstruction, and/or weight-based dosing when appropriate to reduce radiation dose to as low as reasonably achievable. Dictated by Pedro Madrigal MD @ 11/16/2024 3:02:08 PM Progress Note:A&P Assessment and plan (1) Normocytic anemia: Status: Acute (2) Elevated blood sugar: Status: Acute (3) Eason catheter in place: Status: Acute (4) H/O insertion of cholecystostomy tube: Status: Acute (5) Obesity: Status: Acute (6) Stage III pressure ulcer of sacral region: Status: Acute (7) Stage III pressure ulcer of buttock: Status: Acute (8) Pressure ulcer of coccygeal region, stage 1: Status: Acute Plan The patient is a 74-year-old male with fevers and elevated CRP with multiple possible sources of infection. UTI is a possibility in the setting of indwe lling Eason. Cholecystostomy tube also growing Gram-negative rods and the patient has a significant ischial tuberosity ulcer on the left with fat necrosis - This was debrided significantly today at bedside. -will reassess wound tomorrow. Patient may benefit from OR debridement secondary to the depth. -please hold Eliquis. Patient should be NPO at midnight in anticipation of possible procedure. -to the left sacral wound: Daily dressing changes with Medihoney. -to the perianal coccygeal wound: Daily to EOD Mepilex -to the left ischial tuberosity wound: B.i.d. dressing changes with Kerlix and Vashe -agree with broad antibiotics until cultures return -recommend offloading mattress both in the hospital and also at home. -frequent position changes per offloading protocol. -would benefit from outpatient pressure mapping -cholecystostomy tube management by outside facility as planned.
[2024-11-17] MEDS: lidocaine HCL 2 % JELLY (TOP) STERILE 6 ML UR (13:06)
--- NOTE | 2024-11-17 13:55 | P.PCN_ITS ---
Procedure Note Date Seen: 11/17/24 Will [facility] bill your pro fee for this procedure?: Yes Pre-op diagnosis: Left ischial tuberosity pressure wound Post-op diagnosis: same Procedure: Sharp excisional debridement to subcutaneous fat, 4 x 2.5 x 2 cm Procedure Description: After obtaining verbal consent and application of topical lidocaine, the eschar overlying the wound was excised using a scissor. Immediately deep to this there was noted to be nonviable common necrotic appearing fat. This was excised sharply using a knife. There was purulent fluid encountered. This was sent for culture. The wound was debrided to a depth of 2 cm. There was some bleeding fat noted in areas of the wound base, however there were still some areas within the wound which appeared discolored. Because of the patient's anticoagulation and the fact that the bulk of the debridement had been completed, I stopped the procedure at this point There was no further fluid emerging from the wound. Hemostasis was achieved with cautery. The wound was then packed with Vashe- soaked kerlix. Mepilex was applied. Anesthesia: other (1% lidocaine topical) Estimated blood loss (mL): 5
[2024-11-17] MEDS: FUROSEMIDE 20 MG TABLET PO (17:41)
--- NOTE | 2024-11-17 19:21 | PC.NURSE ---
Patients wounds debrided at bedside. Patient repositioned to offload pressure. Patient needed assistance with feeding at meals.
[2024-11-17] MEDS: ATORVASTATIN CALCIUM 40 MG TABLET 80 MG PO (22:08)
[2024-11-17] MEDS: LATANOPROST 0.005% OPHTH 1 DROP EYE-BOTH (22:09)
[2024-11-18] VITALS (16 sets, daily range): BP systolic 118–157; BP diastolic 55–71; PULSE 62–71; RESP 16–18; TEMP 36.3–36.7; O2SAT 89–96; BMI 34.0
[2024-11-18] MEDS: LACTATED RINGERS 1000 ML 1,000 ML 125 ML IV ×2 (01:08→12:04)
[2024-11-18] MEDS: PIPERACILLIN/TAZOBACTAM 3.375 GM in 0.9 % SODIUM CHLORIDE Mini-bag 100 ML IVPB ×4 (01:09→19:04)
--- NOTE | 2024-11-18 06:31 | PC.NURSE ---
Pt alert, oriented, with confusion, and vitally stable. Pt woke throughout shift, disoriented and confused. Staff reoriented and provided patients with a low stimulus environment. Pt appears to be sleeping. Eason patent and draining, urine straw and strong smelling. Cholecystostomy patent and draining, drainage brown tinted and strong smelling. Pt full assist tolerated well. Turned and repositioned throughout shift, stayed off left side for great majority of shift. Mepilex on buttocks C/D/I, changed after large BM. Pt in bed, appears to be resting, call light within reach.?
[2024-11-18 06:44] LABS: Basophils Absolute Auto 0.02 K/uL (0.00-0.30); Basophils Percent Auto 0.2 % (0.0-3.0); Eosinophils Absolute Auto 0.49 K/uL (0.00-0.50); Eosinophils Percent Auto 4.6 % (0.0-7.0); Hematocrit 30.9 % (37.0-53.0); Hemoglobin* 9.5 gm/dL (13.5-17.5); Immature Granulocytes Abs Auto 0.15 K/uL (0.00-0.30); Immature Granulocytes Pct Auto 1.4 %; Lymphocytes Percent Auto 9.1 % (20-44); Mean Corpuscular HGB Conc 31 gm/dL (32-36); Mean Corpuscular Hemoglobin 27 pg (26-34); Mean Corpuscular Volume 86 fL (80-100); Neutrophils Percent Auto 80.7 % (42.0-72.0); Platelet Count* 204 K/uL (140-440); RDW Coefficient of Variation % 18.1 % (11.5-15.5); Red Blood Count 3.59 m/uL (4.30-5.90); White Blood Count* 10.57 K/uL (4.50-11.00)
[2024-11-18 06:56] LABS: Slide Review Reflex No
[2024-11-18 06:58] LABS: Albumin* 3.3 g/dL (3.3-5.0); Chloride* 105 mmol/L (96-114); Potassium* 3.7 mmol/L (3.6-5.1); Sodium* 138 mmol/L (135-149)
[2024-11-18 07:00] LABS: Blood Urea Nitrogen* 22 mg/dL (7-30); Creatinine* 1.1 mg/dL (0.5-1.5); Estimated Glomerular Filt Rate 70 ml/min
[2024-11-18 07:01] LABS: Alanine Aminotransferase* 60 U/L (4-50); Alkaline Phosphatase* 151 U/L (40-150); Anion Gap 9 mEq/L (7-15); Aspartate Amino Transferase* 63 U/L (12-35); Bilirubin Direct* 0.5 mg/dL (0.0-0.5); Bilirubin Total* 0.8 mg/dL (0.1-1.5); Calcium* 8.8 mg/dL (8.4-10.6); Carbon Dioxide* 24 mmol/L (20-32); Glucose* 160 mg/dL (60-115); Total Protein* 6.3 g/dL (6.0-8.3)
[2024-11-18 07:08] LABS: Iron* 45 ug/dL (49-181)
[2024-11-18 07:17] LABS: Percent Iron Saturation 23 % (20-50); Total Iron Binding Capacity 195 ug/dL (261-462)
[2024-11-18 07:50] LABS: Vitamin B12* 397 pg/mL (243-894)
[2024-11-18 07:54] LABS: C Reactive Protein* 17.4 mg/dL (0.5-1.0)
[2024-11-18] MEDS: FAMOTIDINE 20 MG TABLET PO ×2 (07:57→19:02)
[2024-11-18] MEDS: diphenhydrAMINE 25 MG CAPSULE PO ×2 (07:57→19:02)
[2024-11-18] MEDS: VANCOMYCIN 1.75 GM/350 ML 1.75 GM/350 ML PIGGYBACK IVPB ×2 (09:38→19:56)
[2024-11-18] MEDS: lisinopriL 20 MG TABLET 40 MG PO (10:16)
[2024-11-18] MEDS: BACLOFEN 10 MG TABLET PO ×2 (10:17→20:59)
[2024-11-18] MEDS: METOPROLOL SUCCINATE (XL) 100 MG TAB PO (10:17)
--- NOTE | 2024-11-18 10:33 | P.GSPN_ITS ---
Subjective Subjective Date Seen: 11/18/24 Interval history: Ren did not rest well overnight. No increase in pain. Eliquis held last evening. Exam Narrative: Exam Narrative: General: No acute distress Abdomen: Bile drainage in cholecystostomy drain. Skin: Left sacral wound stable. Ecchymosis noted around it, however wound base is beefy red. Ecchymosis over coccygeal wound appears more prominent today. Left ischial tuberosity wound continues with grayish fat. There is stool in the wound as well. Portions of the wound have healthy yellow appearing fat, however the deepest portion with murky fluid. No surrounding cellulitis. Const: Vital Signs, click to edit/add: Vital Signs - 24 hr 11/17/24 10:56 11/17/24 15:00 11/17/24 15:00 Temperature 97.5 F L Pulse Rate [Pulse Oximeter] 85 85 Respiratory Rate 16 15 16 Blood Pressure [Le ft Arm] 139/52 L Blood Pressure [Ri ght Arm] Pulse Oximetry 95 93 Oxygen Delivery Me thod Room Air Room Air Oxygen Flow Rate 0 0 11/17/24 15:00 11/17/24 19:00 11/17/24 23:00 Temperature 97.8 F 97.7 F Pulse Rate [Pulse Oximeter] 85 79 Respiratory Rate 15 18 Blood Pressure [Le ft Arm] 122/51 L Blood Pressure [Ri ght Arm] 116/52 L Pulse Oximetry 95 93 92 Oxygen Delivery Me thod Room Air Room Air Room Air Oxygen Flow Rate 0 11/17/24 23:00 11/18/24 01:06 11/18/24 03:00 Temperature Pulse Rate [Pulse Oximeter] 79 68 62 Respiratory Rate 18 18 18 Blood Pressure [Le ft Arm] 119/57 L Blood Pressure [Ri ght Arm] Pulse Oximetry 92 Oxygen Delivery Me thod Room Air Oxygen Flow Rate 11/18/24 07:00 11/18/24 07:00 11/18/24 07:00 Temperature 97.4 F L Pulse Rate [Pulse Oximeter] 70 70 Respiratory Rate 18 16 16 Blood Pressure [Le ft Arm] Blood Pressure [Ri ght Arm] 142/60 H Pulse Oximetry 95 Oxygen Delivery Me thod Room Air Room Air Oxygen Flow Rate Labs/Imaging Labs Labs: White blood cell count is up slightly to 10.5 from 9.8. CRP is 17 from 21. Cultures are still pending, Wound cultures without results, however Gram- negative rods growing both from bile and urine culture. Progress Note:A&P Assessment and plan (1) Pressure ulcer of coccygeal region, stage 1: Status: Acute (2) Stage III pressure ulcer of buttock: Status: Acute (3) Stage III pressure ulcer of sacral region: Status: Acute (4) Normocytic anemia: Status: Acute (5) Elevated blood sugar: Status: Acute (6) H/O insertion of cholecystostomy tube: Status: Chronic (7) Eason catheter in place: Status: Chronic (8) Neurogenic bladder: Status: Chronic Plan The patient is a 74-year-old male with MS, g negative rods and bile and urine as well coccygeal, sacral and ischial tuberosity decubitus ulcers. Ischial tuberosity ulcer is the worst. This was debrided at bedside yesterday, however does need more debridement today. I do recommend doing an this in the OR. I discussed this with the patient who is in agreement. Risks include bleeding, anesthetic reaction and need for additional procedures. - continue NPO status and holding Eliquis in anticipation for OR today.
[2024-11-18] MEDS: BUPIVACAINE 0.25% 30 ML INJECTION (12:52)
--- NOTE | 2024-11-18 13:05 | P.IMPN_ITS ---
Assessment and Plan Assessment and plan (1) Fever: Problem comment: - 11/16 Patient had fever and altered mental status in the intermediate today. Staff there concerned about the appearance of his wound on his left buttock. Other potential sources of infection include cholecystostomy tube and indwelling Eason. Cultures are pending. Broad-spectrum IV antibiotics pending clinical course. - 11/17 Afebrile overnight. WBC wnl. CRP elevated yesterday. I spoke with general surgery who unroofed and cultured left buttock wound, which appears to be source of infection. Additionally, he has gram neg rods in the cholecystostomy fluid and urine. Wound culture pending. Continue vanco/Zosyn - 11/18 remains afebrile. CRP improving. WBC wnl. Going to OR today for debridement of wounds. Awaiting cultures. Continue zosyn/vanco. Status: Acute (2) Decubitus ulcer of sacral area: Problem comment: Consult general surgery for recommendations on wound care - 11/17 I spoke with general surgery. Deep wound culture was obtained at bedside by Dr. Mejia. She would like him to be NPO after MN and to hold Eliquis in prep for wound debridement tomorrow. I have ordered those. Continue vanco/zosyn - 11/18 Gneg aden on wound culture. OR today for debridement. Continue vanco/zosyn. Status: Acute (3) Cellulitis: Problem comment: - as above Status: Acute (4) H/O insertion of cholecystostomy tube: Problem comment: - July 2024 at [facility]. - Mild RUQ pain. I spoke with Dr. Mejia. This pain may be related to an expected sensation of the catheter as it goes through the skin. LFTs reassuring. - Fluid culture growing out G neg aden, continue zosyn/vanco, await final culture results. Status: Chronic (5) Hypertension: Problem comment: - BP low/normal: continue lisinopril, furosemide, metoprolol, continue to HOLD nifedipine Status: Chronic (6) Right wrist pain: Problem comment: - 11/16 Clinically diagnosed with gout yesterday. History of elevated uric acid in July 2024. Started on prednisone. Records indicate possible history of rheumatoid arthritis as well. - 11/17 wrist XR from yesterday reviewed. Status: Acute (7) Acute UTI: Problem comment: - Indwelling catheter - Gram neg aden on UC. On zosyn/vanco. Await final culture results. Status: Acute (8) Obesity: Status: Chronic (9) Neurogenic bladder: Problem comment: - indwelling urinary catheter Status: Chronic (10) Eason catheter in place: Status: Chronic (11) Hyperuricemia: Problem comment: History of elevated uric acid. Clinically diagnosed yesterday with gout in right wrist and started on prednisone. Empirically begin allopurinol low-dose as well Status: Chronic (12) Elevated blood sugar: Problem comment: Suspect diabetes. Check hemoglobin A1c. Start sliding scale insulin due to concomitant use of prednisone for suspected gout. - 11/17 Hgb A1C elevated at 7.6%, meeting the criteria for DM2. Continue SSI. Would benefit from metformin when infection under better control. - 11/18 Glucose 160-190 over the past 18 hours (was 300 24 hours ago). Appears to be improving as infection comes under control. Continue current regimen. Status: Acute (13) Normocytic anemia: Problem comment: - Trending downward. Iron studies low, B12 wnl, folate pending. Start ferrous sulfate po. F/u with PCP as outpatient. Status: Acute Total Time Spent Total Time Spent: Today I spent 60 minutes seeing the patient, reviewing Expanse and EPIC notes/diagnostics/labs, discussing the care plan with general surgery and our care team that includes social work, PT/OT, pharmacy, RT, custodial and documenting my impressions and plan in the medical record. Subjective Time Seen by Provider: 09:35 Date Seen: 11/18/24 Interval history: Vu denies pain. Overall, he feels a little better than yesterday. He made a few jokes while I was in there with the nurses. Exam Narrative: Exam Narrative: General: No acute distress. Awake, alert, oriented x3. No pallor. No jaundice. Oropharynx: Clear. Mucous membranes moist. Cardiovascular: Regular rate and rhythm. No murmurs, gallops, or rubs. Respiratory: Clear to auscultation bilaterally. No wheezes or crackles. Abdomen: Bowel sounds present. Soft, nondistended, mildly tender around the cholecystostomy tube without erythema, induration, or drainage. Cholecystostomy tube draining yellow-brown fluid. Const: Vital Signs, click to edit/add: Vital Signs - 24 hr 11/17/24 15:00 11/17/24 15:00 11/17/24 15:00 Temperature 97.8 F Pulse Rate [Pulse Oximeter] 85 85 Respiratory Rate 15 16 15 Blood Pressure [Le ft Arm] Blood Pressure [Ri ght Arm] 116/52 L Pulse Oximetry 93 95 Oxygen Delivery Ky thod Room Air Room Air Oxygen Flow Rate 0 0 11/17/24 19:00 11/17/24 23:00 11/17/24 23:00 Temperature 97.7 F Pulse Rate [Pulse Oximeter] 79 79 Respiratory Rate 18 18 Blood Pressure [Le ft Arm] 122/51 L Blood Pressure [Ri ght Arm] Pulse Oximetry 93 92 Oxygen Delivery Me thod Room Air Room Air Oxygen Flow Rate 11/18/24 01:06 11/18/24 03:00 11/18/24 07:00 Temperature 97.4 F L Pulse Rate [Pulse Oximeter] 68 62 70 Respiratory Rate 18 18 18 Blood Pressure [Le ft Arm] 119/57 L Blood Pressure [Ri ght Arm] 142/60 H Pulse Oximetry 92 95 Oxygen Delivery Ky thod Room Air Room Air Oxygen Flow Rate 11/18/24 07:00 11/18/24 07:00 11/18/24 12:00 Temperature 97.6 F Pulse Rate [Pulse Oximeter] 70 71 Respiratory Rate 16 16 18 Blood Pressure [Le ft Arm] Blood Pressure [Ri ght Arm] 138/71 Pulse Oximetry 95 Oxygen Delivery Ky thod Room Air Room Air Oxygen Flow Rate Labs Labs: Laboratory Results - last 24 hr 11/18/24 06:07 WBC 10.57 RBC 3.59 L Hgb 9.5 L Hct 30.9 L MCV 86 MCH 27 MCHC 31 L RDW Coeff of Rey 18.1 H Plt Count 204 Neut % (Auto) 80.7 H Lymph % (Auto) 9.1 L [place] % (Auto) 4.0 Eos % (Auto) 4.6 Baso % (Auto) 0.2 Neut # (Auto) 8.50 H Lymph # (Auto) 1.00 [place] # (Auto) 0.40 Eos # (Auto) 0.49 Baso # (Auto) 0.02 Abs Immat Gran (auto) 0.15 Imm/Tot Granulo (auto) 1.4 Sodium 138 Potassium 3.7 Chloride 105 Carbon Dioxide 24 Anion Gap 9 BUN 22 Creatinine 1.1 Estimated Creat Clear 68.50 Estimated GFR 70 Glucose 160 H Calcium 8.8 Iron 45 L TIBC 195 L % Saturation 23 Total Bilirubin 0.8 Direct Bilirubin 0.5 AST 63 H ALT 60 H Alkaline Phosphatase 151 H C-Reactive Protein 17.4 H Total Protein 6.3 Albumin 3.3 Vitamin B12 397
--- NOTE | 2024-11-18 13:15 | P.ANES_ITS ---
Anesthesia Charges Start Date/Time Anesthesia Start Date: 11/18/24 Anesthesia Start Time: 12:20 Stop Date/Time Anesthesia Stop Date: 11/18/24 Anesthesia Stop Time: 13:12 Summary Extremes of Age - Over 70 or under 1: BRIDGE OPERATOR Coding CPT Codes CPT Codes: ANESTH ANORECTAL SURGERY - 95207 ([id number]) P3 - PATIENT W/SEVERE SYS DISEASE, QK - MAINTENANCE CRAFTSMAN 2-4 CNCRNT ANES PROC, QX - BRIDGE OPERATOR SVC W/ MD MED DIRECTION Additional Codes: Summary - Extremes of Age - Over 70 or under 1: BRIDGE OPERATOR ([id number])
--- NOTE | 2024-11-18 13:15 | W.ANESCHARGE ---
Anesthesia Charges Start Date/Time Anesthesia Start Date: 11/18/24 Anesthesia Start Time: 12:20 Stop Date/Time Anesthesia Stop Date: 11/18/24 Anesthesia Stop Time: 13:12 Summary Extremes of Age - Over 70 or under 1: MIRROR INSPECTOR Coding CPT Codes CPT Codes: ANESTH ANORECTAL SURGERY - 11153 ([id number]) P3 - PATIENT W/SEVERE SYS DISEASE, QK - IN FLIGHT REFUELING MANAGER 2-4 CNCRNT ANES PROC, QX - MIRROR INSPECTOR SVC W/ MD MED DIRECTION Additional Codes: Summary - Extremes of Age - Over 70 or under 1: MIRROR INSPECTOR ([id number])
--- NOTE | 2024-11-18 13:24 | PM.GSPRC ---
Operative Note Date of procedure: 11/18/24 Pre-op diagnosis: Left ischial tuberosity ulcer with devitalized tissue Post-op diagnosis: Same Type of Procedure: Excisional debridement to subcutaneous fat, left ischial tuberosity ulcer, 5 x 3 x 2 cm. Indications: Patient is a 74-year-old male with multiple sclerosis and paraplegia who presented to the emergency department from his care facility with fevers. He was found to have wounds on his sacrum and ischial tuberosity. The ischial tuberosity wound did have eschar on it. This was debrided at bedside yesterday. Today on exam, it continued to have devitalized tissue in there for OR debridement was recommended. Procedure Description: After discussing the risks and benefits of the procedure, the patient signed informed consent.? The operative site was marked and the patient was brought to the operating room and placed on the operating table in Right lateral decubitus position.? Care was taken to pad the patient's pressure points.?? The patient was then given sedation by anesthesia.?? The operative site was then prepped and draped in the usual sterile fashion.? A time-out was then performed. I began by examining the ischial tuberosity wound. Medially, there was viable subcutaneous fat and tissue. A small bleeding area was cauterized. The fat in the wound anteriorly was discolored because of stool staining. At the deeper part of the wound the fat was somewhat moeller appearing, there was murky fluid coming from this. Using cautery, I excised a rim of tissue within the base of the wound, excising all obviously nonviable fat. Superficially, there was murky fluid which emerged from this tissue, however there were no overt pockets of purulence. There was healthy bleeding noted anteriorly and at the deepest aspect of the wound. Debridement continued until either bleeding was encountered or the fat at the wound base appeared normal in color and viable. No specimens were sent as the patient had been cultured yesterday at the bedside and the day previous. After completion of debridement, the ischial tuberosity was palpable, however not visible within the wound. Hemostasis was achieved with cautery. The wound was then packed with Kerlix soaked in vashe. A sterile dressing was applied. The patient was then woken and transported to the recovery area in stable condition. ? The patient tolerated the procedure well. Findings: Devitalized fat in the base of the left ischial tuberosity wound. New wound measurements: 5 x 3 x 4 cm deep. Anesthesia: MAC Surgeon: Stella Mejia MD Estimated blood loss (mL): 5 Condition: stable Disposition: floor
--- NOTE | 2024-11-18 13:40 | P.ANES_ITS ---
Anesthesia Charges Start Date/Time Anesthesia Start Date: 11/18/24 Anesthesia Start Time: 12:20 Stop Date/Time Anesthesia Stop Date: 11/18/24 Anesthesia Stop Time: 13:12 Summary Extremes of Age - Over 70 or under 1: MDA Coding CPT Codes CPT Codes: ANESTH ANORECTAL SURGERY - 19479 ([id number]) P3 - PATIENT W/SEVERE SYS DISEASE, QK - BATHHOUSE ATTENDANT 2-4 CNCRNT ANES PROC, QX - TOWEL HEMMER SVC W/ MD MED DIRECTION Additional Codes: Summary - Extremes of Age - Over 70 or under 1: MDA ([id number])
--- NOTE | 2024-11-18 13:40 | W.ANESCHARGE ---
Anesthesia Charges Start Date/Time Anesthesia Start Date: 11/18/24 Anesthesia Start Time: 12:20 Stop Date/Time Anesthesia Stop Date: 11/18/24 Anesthesia Stop Time: 13:12 Summary Extremes of Age - Over 70 or under 1: MDA Coding CPT Codes CPT Codes: ANESTH ANORECTAL SURGERY - 74205 ([id number]) P3 - PATIENT W/SEVERE SYS DISEASE, QK - CLOTH SHADER 2-4 CNCRNT ANES PROC, QX - MUSIC WRITER SVC W/ MD MED DIRECTION Additional Codes: Summary - Extremes of Age - Over 70 or under 1: MDA ([id number])
[2024-11-18] MEDS: ACETAMINOPHEN 500 MG TABLET 1000 MG PO ×2 (14:22→20:58)
--- NOTE | 2024-11-18 14:46 | PC.SOCIAL ---
Addendum entered by JEAN CLAUDE Sanchez 11/18/24 16:13: Discharge planning: location worker did also confirm with Sandi in Admissions at [facility] that the pt is on a bed hold. Social work to follow-up as needed. Addendum entered by JEAN CLAUDE Sanchez 11/18/24 16:11: Discharge planning: location worker spoke to pt's daughter, Malika, via phone this afternoon who shared that her father is on a bed hold at [facility] and the plan is for him to return there when he is medically able. Pt's daughter also requested a medical update from pt's nurse. This worker then had a message sent to pt's nurse asking to call pt's daughter back when she has time. Social work to follow-up as needed. Original Note: Discharge planning: Received call from [facility] Case [facility] who provided pt's care coordinators contact information for discharge planning if needed; Corazon Singer RN [phone].
[2024-11-18] MEDS: POTASSIUM CHLORIDE 10 MEQ CAPSULE ER PO (17:25)
[2024-11-18] MEDS: OMEPRAZOLE 20 MG CAPSULE DR 40 MG PO (17:25)
[2024-11-18] MEDS: FUROSEMIDE 20 MG TABLET PO (17:26)
--- NOTE | 2024-11-18 18:45 | PC.NURSE ---
End of Shift: Alert and oriented, though with periodic confusion during conversation. Wound cares completed, pt went to OR for I/D. Vitals remain stable after I/D. No reports of pain. Assist x2 Q2 reposition and check and change with dressing changes PRN if soiled. Eason and cholecystostomy patent and draining. TEDs applied this afternoon, after removal this AM. Call light within reach, although patient will call out at times. -Tom Jordan, Student Nurse
[2024-11-18] MEDS: APIXABAN 5 MG TABLET PO (20:58)
[2024-11-18] MEDS: ATORVASTATIN CALCIUM 40 MG TABLET 80 MG PO (20:59)
[2024-11-18] MEDS: CALCIUM CARBONATE 500 MG CHEW 400 MG PO (20:59)
[2024-11-18] MEDS: SODIUM CHLORIDE 0.9 % (FLUSH) 10 ML SYRINGE 5 ML IVF (21:00)
[2024-11-18] MEDS: LATANOPROST 0.005% OPHTH 1 DROP EYE-BOTH (21:13)
[2024-11-18] MEDS: 0.9 % SODIUM CHLORIDE 250 ml IV (21:16)
[2024-11-19] VITALS (7 sets, daily range): BP systolic 138–161; BP diastolic 58–73; PULSE 65–75; RESP 16–18; TEMP 36.4–36.6; O2SAT 92–95
[2024-11-19] MEDS: PIPERACILLIN/TAZOBACTAM 3.375 GM in 0.9 % SODIUM CHLORIDE Mini-bag 100 ML IVPB ×3 (00:44→13:44)
[2024-11-19] MEDS: OMEPRAZOLE 20 MG CAPSULE DR 40 MG PO ×2 (06:58→18:28)
[2024-11-19] MEDS: FAMOTIDINE 20 MG TABLET PO (06:59)
[2024-11-19] MEDS: diphenhydrAMINE 25 MG CAPSULE PO (06:59)
--- NOTE | 2024-11-19 07:09 | PC.NURSE ---
End of shift report [id number]: VSS. Afebrile. Denies pain. Pt has intermittent confusion. Pt is paraplegic. Pt did not allow copywriter to get a 0300 temp. Disaster Recovery Coordinator educated on the importance of Q2H repo and wound cares, pt continued to refuse cares and was unreceptive to?education throughout?the majority of the night. Pt was unreceptive of education and yelled at copywriter ?get out and leave me alone.? Security was called and pt refused to acknowledge him and kept a blanket over his head. At 0500 pt was cooperative and allowed copywriter to reposition him and assess wounds.?Wound dressings are C/D/I. Eason is intact and patent. Cholecystostomy is intact and patent. Call light within reach.?
[2024-11-19] MEDS: ASPIRIN 81 MG TABLET EC PO (09:13)
[2024-11-19] MEDS: VANCOMYCIN 1.75 GM/350 ML 1.75 GM/350 ML PIGGYBACK IVPB (09:13)
[2024-11-19] MEDS: POTASSIUM CHLORIDE 10 MEQ CAPSULE ER PO ×2 (09:13→18:29)
[2024-11-19] MEDS: ACETAMINOPHEN 500 MG TABLET 1000 MG PO ×3 (09:13→20:46)
[2024-11-19] MEDS: lisinopriL 20 MG TABLET 40 MG PO (09:13)
[2024-11-19] MEDS: SENNOSIDES/DOCUSATE TABLET 2 TAB PO (09:13)
[2024-11-19] MEDS: BACLOFEN 10 MG TABLET PO ×2 (09:13→20:48)
[2024-11-19] MEDS: FUROSEMIDE 40 MG TABLET PO (09:14)
[2024-11-19] MEDS: APIXABAN 5 MG TABLET PO ×2 (09:14→20:49)
[2024-11-19] MEDS: CALCIUM CARBONATE 500 MG CHEW 400 MG PO ×2 (09:14→20:46)
[2024-11-19] MEDS: SODIUM CHLORIDE 0.9 % (FLUSH) 10 ML SYRINGE 5 ML IVF ×2 (09:14→20:51)
[2024-11-19] MEDS: METOPROLOL SUCCINATE (XL) 100 MG TAB PO (09:14)
[2024-11-19] MEDS: allopurinoL 100 MG TABLET PO (09:18)
--- NOTE | 2024-11-19 10:27 | P.GSPN_ITS ---
Subjective Subjective Date Seen: 11/19/24 Interval history: Ren is doing well. Wound has stayed clean since surgery. Cultures are coming back with Proteus. Exam Narrative: Exam Narrative: General: No acute distress Skin: Left ischial tuberosity pressure ulcer examine. There is pink tissue noted in the wound base. Some brownish discoloration noted in areas of the wound, however no drainage, no purulence and no overt ischemic appearing tissue. No surrounding cellulitis. Const: Vital Signs, click to edit/add: Vital Signs - 24 hr 11/18/24 12:00 11/18/24 13:11 11/18/24 13:16 Temperature 97.6 F 98.0 F Pulse Rate 65 68 Pulse Rate [Apical ] Pulse Rate [Pulse Oximeter] 71 Respiratory Rate 18 16 16 Blood Pressure 124/57 L 118/56 L Blood Pressure [Ri ght Arm] 138/71 Pulse Oximetry 95 89 [address] [facility] [address] [facility] Room Air Non Rebreather Mas k Oxygen Flow Rate 8 11/18/24 13:19 11/18/24 13:30 11/18/24 13:45 Temperature Pulse Rate 67 Pulse Rate [Apical ] Pulse Rate [Pulse Oximeter] 65 68 Respiratory Rate 16 Blood Pressure 118/58 L Blood Pressure [Ri ght Arm] 127/55 L 130/56 L Pulse Oximetry 96 94 [address] Room Air Room Air Oxygen Flow Rate 11/18/24 14:00 11/18/24 14:15 11/18/24 14:30 Temperature Pulse Rate Pulse Rate [Apical ] Pulse Rate [Pulse Oximeter] 68 68 67 Respiratory Rate Blood Pressure Blood Pressure [Ri ght Arm] 133/59 L 124/58 L 139/62 Pulse Oximetry 95 96 [address] [facility] Room Air Oxygen Flow Rate 11/18/24 15:00 11/18/24 15:00 11/18/24 15:00 Temperature Pulse Rate Pulse Rate [Apical ] 66 Pulse Rate [Pulse Oximeter] 67 Respiratory Rate 18 18 Blood Pressure Blood Pressure [Ri ght Arm] 128/61 Pulse Oximetry 95 [address] [facility] Room Air Oxygen Flow Rate 11/18/24 19:00 11/18/24 22:04 11/18/24 22:04 Temperature 98.0 F Pulse Rate Pulse Rate [Apical ] Pulse Rate [Pulse Oximeter] 68 68 Respiratory Rate 18 18 18 Blood Pressure Blood Pressure [Ri ght Arm] 138/61 Pulse Oximetry 94 94 Oxygen Delivery Me thod Room Air Room Air Oxygen Flow Rate 11/18/24 23:00 11/19/24 03:00 11/19/24 07:00 Temperature 97.9 F 97.8 F Pulse Rate Pulse Rate [Apical ] Pulse Rate [Pulse Oximeter] 70 69 75 Respiratory Rate 18 16 18 Blood Pressure Blood Pressure [Ri ght Arm] 157/67 H 144/59 H 157/73 H Pulse Oximetry 93 92 95 Oxygen Delivery Me thod Room Air Room Air Room Air Oxygen Flow Rate 11/19/24 08:00 Temperature Pulse Rate Pulse Rate [Apical ] Pulse Rate [Pulse Oximeter] Respiratory Rate 18 Blood Pressure Blood Pressure [Ri ght Arm] Pulse Oximetry 95 Oxygen Delivery Me thod Room Air Oxygen Flow Rate Labs/Imaging Labs Labs: Cultures reviewed: Wound culture (deep) from 11/17 shows Proteus resistant to cefazolin and ampicillin Urine culture from 11/16 shows Proteus resistant to penicillin and cephalosporin as well as nitrofurantoin Wound culture from 11/16 (superficial) - growing group B strep, Staph aureus, E coli, ESBL Klebsiella, all a large amount - this likely represents stool contamination on outside of wound Bile culture from 11/16/2024: Morganella resistant to penicillin and cephalosporin Proteus, resistant to penicillin and cephalosporin Also 3 additional species and Gram-negative rods, knots GASOLINE TRUCK OPERATOR did. Progress Note:A&P Assessment and plan (1) Pressure ulcer of coccygeal region, stage 1: Status: Acute (2) Stage III pressure ulcer of buttock: Status: Acute (3) Stage III pressure ulcer of sacral region: Status: Acute (4) Elevated blood sugar: Status: Acute (5) H/O insertion of cholecystostomy tube: Status: Chronic (6) Neurogenic bladder: Status: Chronic (7) Acute UTI: Status: Acute Plan The patient is a 74-year-old male with multiple sclerosis as well as Proteus UTI in the setting of chronic indwelling Eason, cholecystostomy tube, culture growing Proteus and Morganella, and multiple pressure wounds, sacral, coccygeal and ischial tuberosity, deep culture positive for Proteus. Wound recommendations: -left ischial tuberosity wound: daily dressing changes with Vashe-soaked Kerlix. Cover with Mepilex. -left sacral wound: every other day dressing change with Medihoney and Mepilex. -coccygeal wound: Every other day Mepilex Dressings should be changed p.r.n. if soiled from stool. Recommend offloading mattress Patient will benefit from pressure mapping Patient should be repositioned every 2 hours. Should avoid the seated position other than mealtimes for 30 minutes at a time. Patient may establish care in the wound clinic if wound care is not available at [facility]. Follow-up as scheduled for cholecystostomy tube with [facility]
[2024-11-19 10:33] LABS: Folate, Serum 21.3 ng/mL (>=5.9)
--- NOTE | 2024-11-19 10:54 | PC.SOCIAL ---
Discharge planning: drum worker met with the pt today and talked to him about his plan to return to [facility] after his hospital stay. The pt stated that he put his bed on a hold and plans to return there. He shared that he will go back there because he knows they can take care of his Multiple Sclerosis progression there. He states not everything is perfect there, but he likes the staff and the other residents and having his own room and is not ready to move anywhere else. Social work to follow-up as needed.
--- NOTE | 2024-11-19 11:32 | PC.NURSE ---
The patient is pleasant with cares... wound cares and nigel care as well as a bed bath was completed today. tubes are patent and draining... Confusion is still present at times. Call light within reach. Q2 repo and check and change. Ansley EVANGELISTA BSN
[2024-11-19] MEDS: INSULIN ASPART 100 UNIT/ML SUBCUT ×3 (12:47→20:49)
--- NOTE | 2024-11-19 16:14 | PM.IMPN1 ---
Assessment and Plan Assessment and plan (1) Fever: Problem comment: - 11/16 Patient had fever and altered [facility] status in [facility] today. Staff there concerned about the appearance of his wound on his left buttock. Other potential sources of infection include cholecystostomy tube and indwelling Eason. Cultures are pending. Broad-spectrum IV antibiotics pending clinical course. - 11/17 Afebrile overnight. WBC wnl. CRP elevated yesterday. I spoke with general surgery who unroofed and cultured left buttock wound, which appears to be source of infection. Additionally, he has gram neg rods in the cholecystostomy fluid and urine. Wound culture pending. Continue vanco/Zosyn - 11/18 remains afebrile. CRP improving. WBC wnl. Going to OR today for debridement of wounds. Awaiting cultures. Continue zosyn/vanco. Status: Resolved (2) Decubitus ulcer of sacral area: Problem comment: Consult general surgery for recommendations on wound care - 11/17 I spoke with general surgery. Deep wound culture was obtained at bedside by Dr. Mejia. She would like him to be NPO after MN and to hold Eliquis in prep for wound debridement tomorrow. I have ordered those. Continue vanco/zosyn - 11/18 Gneg aden on wound culture. OR today for debridement. Continue vanco/zosyn. - 11/19 Deep wound and superficial wound cultures have resulted. I called ID (Dr. Junie De La Cruz) and reviewed all culture results from this hospital stay. She recommended treating the deep wound culture as well as covering for other stool organisms: po augmentin and DS bactrim for 10 days. She thought urine and cholecystostomy were likely colonized and that we should not try to cover those specifically, and she noted that the GB is being drained by the cholecystostomy tube anyway. Status: Acute (3) Cellulitis: Problem comment: - as above Status: Acute (4) H/O insertion of cholecystostomy tube: Problem comment: - July 2024 at [facility]. - Mild RUQ pain. I spoke with Dr. Mejia. This pain may be related to an expected sensation of the catheter as it goes through the skin. LFTs reassuring. - Fluid likely colonized, see conversation with ID above Status: Chronic (5) Hypertension: Problem comment: - BP higher today: continue lisinopril, furosemide, metoprolol, restart nifedipine Status: Chronic (6) Right wrist pain: Problem comment: - 11/16 Clinically diagnosed with gout yesterday. History of elevated uric acid in July 2024. Started on prednisone. Records indicate possible history of rheumatoid arthritis as well. - 11/17 wrist XR from yesterday reviewed. Status: Acute (7) Acute UTI: Problem comment: - Indwelling catheter - likely colonized, see conversation with ID above, clarification I think he does not have a urinary tract infection. 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 Clinically diagnosed 11/15 with gout in right wrist and started on prednisone. Empirically begin allopurinol low-dose as well Status: Chronic (12) Elevated blood sugar: Problem comment: Suspect diabetes. Check hemoglobin A1c. Start sliding scale insulin due to concomitant use of prednisone for suspected gout. - 11/17 Hgb A1C elevated at 7.6%, meeting the criteria for DM2. Continue SSI. Would benefit from metformin when infection under better control. - 11/18 Glucose 160-190 over the past 18 hours (was 300 24 hours ago). Appears to be improving as infection comes under control. Continue current regimen. - 11/19 glucose 140-200's Continue current regimen. Status: Acute (13) Normocytic anemia: Problem comment: - Trending downward. Iron studies low, B12 wnl, folate not low. Started ferrous sulfate po 11/18. F/u with PCP as outpatient. Status: Acute Plan - Will transition to recommended po antibiotics and d/c back to [facility] tomorrow. Total Time Spent Total Time Spent: Today I spent 60 minutes seeing the patient, reviewing [facility]panse and EPIC notes/diagnostics/labs, discussing the care plan with infectious disease and general surgery and our care team that includes social work, PT/OT, pharmacy, RT, custodial and documenting my impressions and plan in the medical record. Subjective Time Seen by Provider: 09:25 Date Seen: 11/19/24 Interval history: Vu refused cares in the middle of the night, but was pleasant and agreeable with all cares by morning. He apologized to staff. He denies any new symptoms. He complains of pain in the ulcers when they are being examined. Exam Narrative: Exam Narrative: General: No acute distress. Awake, alert, oriented. No pallor. No jaundice. Oropharynx: Clear. Mucous membranes moist. Cardiovascular: Regular rate and rhythm. No murmurs, gallops, or rubs. Respiratory: Clear to auscultation bilaterally. No wheezes or crackles. Const: Vital Signs, click to edit/add: Vital Signs - 24 hr 11/18/24 19:00 11/18/24 22:04 11/18/24 22:04 Temperature 98.0 F Pulse Rate [Pulse Oximeter] 68 68 Respiratory Rate 18 18 18 Blood Pressure [Ri ght Arm] 138/61 Pulse Oximetry 94 94 Oxygen Delivery Me thod Room Air Room Air 11/18/24 23:00 11/19/24 03:00 11/19/24 07:00 Temperature 97.9 F 97.8 F Pulse Rate [Pulse Oximeter] 70 69 75 Respiratory Rate 18 16 18 Blood Pressure [Ri ght Arm] 157/67 H 144/59 H 157/73 H Pulse Oximetry 93 92 95 Oxygen Delivery Me thod Room Air Room Air Room Air 11/19/24 08:00 11/19/24 11:00 11/19/24 15:00 Temperature 97.6 F 98 F Pulse Rate [Pulse Oximeter] 75 65 Respiratory Rate 18 18 18 Blood Pressure [Ri ght Arm] 161/69 H 138/58 L Pulse Oximetry 95 95 95 Oxygen Delivery Me thod Room Air Room Air Room Air 11/19/24 15:00 11/19/24 15:00 Temperature Pulse Rate [Pulse Oximeter] 65 Respiratory Rate 18 18 Blood Pressure [Ri ght Arm] Pulse Oximetry 95 Oxygen Delivery Me thod Room Air Labs Labs: Laboratory Results - last 24 hr 11/18/24 06:07 RBC Fol Andrew for Serum 21.3
[2024-11-19] MEDS: AMOXICILLIN/CLAVULANATE 875 mg/125 mg TABLET PO (18:28)
[2024-11-19] MEDS: FUROSEMIDE 20 MG TABLET PO (18:29)
[2024-11-19] MEDS: ATORVASTATIN CALCIUM 40 MG TABLET 80 MG PO (20:47)
[2024-11-19] MEDS: LATANOPROST 0.005% OPHTH 1 DROP EYE-BOTH (20:49)
[2024-11-19] MEDS: SULFA/TRIMETHOPRIM 800/160 1 TAB PO (20:53)
[2024-11-20 02:16] VITALS: BP 159/78; PULSE 67; RESP 18; TEMP 36.3; O2SAT 96
--- NOTE | 2024-11-20 05:24 | PC.NURSE ---
Shift note: Patient has been in bed throughout the night. Turn and reposition every 2 hours. He refused some the attempt to reposition. Dressing at the buttock changed and redressed at 2200. Packed with 2 4x4 gauze. Alert but occasionally confuse especially when he first wake up from sleep. Patient is pleasant and coordinate with care and treatment. No fever recorded and denied pain. Vitally stable.
[2024-11-20] MEDS: OMEPRAZOLE 20 MG CAPSULE DR 40 MG PO (06:30)
[2024-11-20 06:41] LABS: Basophils Absolute Auto 0.01 K/uL (0.00-0.30); Basophils Percent Auto 0.1 % (0.0-3.0); Eosinophils Absolute Auto 0.48 K/uL (0.00-0.50); Eosinophils Percent Auto 5.6 % (0.0-7.0); Hematocrit 32.8 % (37.0-53.0); Hemoglobin* 10.2 gm/dL (13.5-17.5); Immature Granulocytes Abs Auto 0.08 K/uL (0.00-0.30); Immature Granulocytes Pct Auto 0.9 %; Lymphocytes Percent Auto 11.2 % (20-44); Mean Corpuscular HGB Conc 31 gm/dL (32-36); Mean Corpuscular Hemoglobin 26 pg (26-34); Mean Corpuscular Volume 85 fL (80-100); Monocytes Percent Auto 5.4 % (0.0-11.0); Neutrophils Percent Auto 76.8 % (42.0-72.0); Platelet Count* 212 K/uL (140-440); RDW Coefficient of Variation % 17.6 % (11.5-15.5); Red Blood Count 3.86 m/uL (4.30-5.90); White Blood Count* 8.55 K/uL (4.50-11.00)
[2024-11-20 06:46] LABS: Slide Review Reflex No
[2024-11-20 07:06] LABS: Albumin* 3.5 g/dL (3.3-5.0); Chloride* 108 mmol/L (96-114); Potassium* 3.5 mmol/L (3.6-5.1); Sodium* 139 mmol/L (135-149)
[2024-11-20 07:09] LABS: Alanine Aminotransferase* 51 U/L (4-50); Alkaline Phosphatase* 156 U/L (40-150); Anion Gap 8 mEq/L (7-15); Aspartate Amino Transferase* 33 U/L (12-35); Bilirubin Direct* 0.5 mg/dL (0.0-0.5); Bilirubin Total* 0.6 mg/dL (0.1-1.5); Blood Urea Nitrogen* 14 mg/dL (7-30); Carbon Dioxide* 23 mmol/L (20-32); Creatinine* 0.7 mg/dL (0.5-1.5); Est. Creatinine Clearance* 75.35; Estimated Glomerular Filt Rate 97 ml/min
[2024-11-20 07:10] LABS: Calcium* 9.4 mg/dL (8.4-10.6); Glucose* 172 mg/dL (60-115); Total Protein* 6.8 g/dL (6.0-8.3)
[2024-11-20 07:12] LABS: C Reactive Protein* 7.3 mg/dL (0.5-1.0)
[2024-11-20 07:30] VITALS: BP 177/75; PULSE 71; RESP 18; TEMP 36.6; O2SAT 96
[2024-11-20 08:02] VITALS: PULSE 71; RESP 18
--- NOTE | 2024-11-20 08:21 | PC.SOCIAL ---
Discharge planning: Late entry: on 11/19/24, called Sandi in admissions at [facility] to confirm pt is expected to be discharged back on 11/20/24. Sandi states he can return any time tomorrow if not on IV abx or else, they need the orders for medication early enough to get the supplies needed before discharge. Called pt's contact and left message requesting call back regarding d/c plan. Called pt's Cristina [employer] and updated her on the discharge plan. Per [employer], transportation back to the facility at discharge should be covered by pt's insurance and does not need prior authorization. EMS arranged for 10:00 on 11/10/24.
[2024-11-20] MEDS: NIFEdipine ER 30 MG TAB 90 MG PO (08:36)
[2024-11-20] MEDS: POTASSIUM CHLORIDE 10 MEQ CAPSULE ER PO (08:36)
[2024-11-20] MEDS: AMOXICILLIN/CLAVULANATE 875 mg/125 mg TABLET PO (08:36)
[2024-11-20] MEDS: SENNOSIDES/DOCUSATE TABLET 2 TAB PO (08:36)
[2024-11-20] MEDS: ACETAMINOPHEN 500 MG TABLET 1000 MG PO (08:37)
[2024-11-20] MEDS: SULFA/TRIMETHOPRIM 800/160 1 TAB PO (08:37)
[2024-11-20] MEDS: allopurinoL 100 MG TABLET PO (08:37)
[2024-11-20] MEDS: BACLOFEN 10 MG TABLET PO (08:37)
[2024-11-20] MEDS: FUROSEMIDE 40 MG TABLET PO (08:37)
[2024-11-20] MEDS: METOPROLOL SUCCINATE (XL) 100 MG TAB PO (08:37)
[2024-11-20] MEDS: APIXABAN 5 MG TABLET PO (08:38)
[2024-11-20] MEDS: ASPIRIN 81 MG TABLET EC PO (08:38)
[2024-11-20] MEDS: INSULIN ASPART 100 UNIT/ML SUBCUT (08:38)
[2024-11-20] MEDS: lisinopriL 20 MG TABLET 40 MG PO (08:38)
[2024-11-20] MEDS: polyethylene glycoL 3350 17 GM PACK PO (08:40)
[2024-11-20] MEDS: SODIUM CHLORIDE 0.9 % (FLUSH) 10 ML SYRINGE 5 ML IVF (08:40)
[2024-11-20] MEDS: CALCIUM CARBONATE 500 MG CHEW 400 MG PO (08:42)
--- NOTE | 2024-11-20 09:57 | PC.SOCIAL ---
Discharge Planning: LUIS called patient's daughter and updated that patient will be returning to [facility] today. Daughter states no concerns with this and had no questions. LUIS spoke with patient and reviewed Important Information from Medicare form and provided patient with a copy. LUIS secure emailed doctor's orders to Sandi at [facility].
--- NOTE | 2024-11-20 10:10 | PC.NURSE ---
Discharged. pt has been pleasant. he is alert x3. no problems. he is cooperating and following instructions. SL was d/c intact. tried to call nurse to nurse but no answer. he was helped to get dressed. Turn and reposition every 2 hours. Dressing at the buttock C/D/I. Eason has been patent. Ebenezer drain was emptied. EMS was here report given to EMS
--- NOTE | 2024-11-20 16:02 | P.DS_ITS ---
DS: Providers Provider Date Seen: 11/20/24 Date of admission: 11/16/24 16:21 Primary care physician: Bijan Crawford MD Admitting Clinician: Monserrat Almonte MD Consults: 11/16/24 16:23 Consult to Physician [CONS] Routine Comment: Consulting Provider: Stella Mejia Has provider been notified: Yes 11/19/24 11:43 Consult to Infectious Diseases [CONS] Routine Comment: Consulting Provider: Patrick TeleInfectious Disease Attending Physician on discharge: Kali Galindo MD Date of Discharge: 11/20/24 DS: Diagnosis Discharge Diagnosis (1) Fever: Status: Resolved Problem details: - 11/16 Patient had fever and altered mental status in the care home today. Staff there concerned about the appearance of his wound on his left buttock. Other potential sources of infection include cholecystostomy tube and indwelling Eason. Cultures are pending. Broad-spectrum IV antibiotics pending clinical course. - 11/17 Afebrile overnight. WBC wnl. CRP elevated yesterday. I spoke with general surgery who unroofed and cultured left buttock wound, which appears to be source of infection. Additionally, he has gram neg rods in the cholecystostomy fluid and urine. Wound culture pending. Continue vanco/Zosyn - 11/18 remains afebrile. CRP improving. WBC wnl. Going to OR today for debridem ent of wounds. Awaiting cultures. Continue zosyn/vanco. (2) Decubitus ulcer of sacral area: Status: Acute Problem details: Consult general surgery for recommendations on wound care - 11/17 I spoke with general surgery. Deep wound culture was obtained at bedside by Dr. Mejia. She would like him to be NPO after MN and to hold Eliquis in prep for wound debridement tomorrow. I have ordered those. Continue vanco/zosyn - 11/18 Gneg aden on wound culture. OR today for debridement. Continue vanco/zosyn. - 11/19 Deep wound and superficial wound cultures have resulted. I called ID (Dr. Junie De La Cruz) and reviewed all culture results from this hospital stay. She recommended treating the deep wound culture as well as covering for other stool organisms: po augmentin and DS bactrim for 10 days. She thought urine and cholecystostomy were likely colonized and that we should not try to cover those specifically, and she noted that the GB is being drained by the cholecystostomy tube anyway. (3) Cellulitis: Status: Acute Problem details: - as above (4) Pressure ulcer of coccygeal region, stage 1: Status: Acute (5) Stage III pressure ulcer of buttock: Status: Acute (6) Stage III pressure ulcer of sacral region: Status: Acute (7) Eason catheter in place: Status: Chronic (8) H/O insertion of cholecystostomy tube: Status: Chronic Problem details: - July 2024 at [facility]. - Mild RUQ pain. I spoke with Dr. Mejia. This pain may be related to an expected sensation of the catheter as it goes through the skin. LFTs reassuring. - Fluid likely colonized, see conversation with ID above (9) Neurogenic bladder: Status: Chronic Problem details: - indwelling urinary catheter (10) Normocytic anemia: Status: Acute Problem details: - Trending downward. Iron studies low, B12 wnl, folate not low. Started ferrous sulfate po 11/18. F/u with PCP as outpatient. (11) Hyperuricemia: Status: Chronic Problem details: History of elevated uric acid. Clinically diagnosed 11/15 with gout in right wrist and started on prednisone. Empirically begin allopurinol low-dose as well (12) Elevated blood sugar: Status: Acute Problem details: Suspect diabetes. Check hemoglobin A1c. Start sliding scale insulin due to concomitant use of prednisone for suspected gout. - 11/17 Hgb A1C elevated at 7.6%, meeting the criteria for DM2. Continue SSI. Would benefit from metformin when infection under better control. - 11/18 Glucose 160-190 over the past 18 hours (was 300 24 hours ago). Appears to be improving as infection comes under control. Continue current regimen. - 11/19 glucose 140-200's Continue current regimen. (13) Hypertension: Status: Chronic Problem details: - BP higher today: continue lisinopril, furosemide, metoprolol, restart nifedipine (14) Right wrist pain: Status: Acute Problem details: - 11/16 Clinically diagnosed with gout yesterday. History of elevated uric acid in July 2024. Started on prednisone. Records indicate possible history of rheumatoid arthritis as well. - 11/17 wrist XR from yesterday reviewed. (15) Obesity: Status: Chronic (16) Acute UTI: Status: Ruled-out Problem details: - Indwelling catheter - likely colonized, see conversation with ID above, clarification I think he does not have a urinary tract infection. (17) Neurogenic bowel: Status: Acute Problem details: - would likely benefit from institution of bowel program, such as adequate hydration (minimum of 2 liters urine output daily), adequate fiber intake (20-30 grams daily), scheduled intermittent digital rectal stimulation (such as 3 times weekly) with scheduled elimination times, stool softners, etc. (18) Multiple sclerosis: Status: Acute DS: Summary Hospital Course Hospital Course: Admission history of present illness, 11/16/2024: ?74 yo M with a complex medical history including multiple sclerosis limiting his ability to transfer, paraplegia (has been living in [address] [place] [address] for the past few years), history of bilateral pulmonary emboli (diagnosed on CT chest/abdomen/pelvis 08/07/2024), cholecystostomy tube (diagnosed on CT chest/abdomen/pelvis done here in the ER 08/07/2024. At that time labs showed white count of 18, CRP of 35. LFTs were normal. He was ultimately transferred to [facility] for cholecystostomy tube since he was also requiring anticoagulation for his pulmonary emboli diagnosed that visit. Still has indwelling cholecystostomy tube. Says that there are plans in the works through the [facility] system to the take his cholecystostomy tube out and do a laparoscopic cholecystectomy. Nothing definitively planned.), he also has a history bilateral lower extremity DVTs (diagnosed by lower extremity ultrasound 08/07/2024), indwelling Eason catheter for neurogenic bladder from MS. He has had trouble with urinary retention for decades because of his MS and [facility] he had done intermittent self catheterization at home. He has had the Eason in place for the past couple of years. He does get occasional UTIs. He most recently had his Eason catheter changed a few days ago and says that the change went well. Most recent UTI was perhaps a month or so ago. He also has a long-term history of sacral ulcers and apparently has need surgical debridement for a sacral ulcer and a heel ulcer in 2017. Managed with a wound VAC at that time. It does not sound like he currently is working with the [place] [facility] but he may have seen them in the past, he thinks. ?He sent to the ER today by EMS from his care facility with concern that he has a fever. His nurses from his care facility are concerned that he has an infection on his low sacral/buttock ulcer. He says that the ulcers have been there for the past few weeks but only started to hurt a few days ago. He started to feel feverish in warm yesterday. Today his nurses noted malodorous purulent drainage from the wounds so sent him here to the ER. ?He says his catheter has been draining normal urine. We note that his cholecystostomy tube is draining brown material. He says that is not normal but he is not sure how many days or weeks it has been draining brown. He does have right upper quadrant pain but is not really worse than his chronic baseline. ?Patient tells me he is having no abdominal pain or chest pain. He had an episode of vomiting about 2 weeks ago but thinks he has been eating normally since that time. ?His code status has been full code per his records from the care home but he tells me today that he requests DNR status. He has sleep apnea but his CPAP is broken. He is awaiting medical evaluation and orders for a new CPAP machine. He developed right wrist pain yesterday. He was diagnosed with gout and started on prednisone 60 mg daily which probably began today in the care home.? Hospital day 5, 11/20/2024: He is concerned that he has mild abdominal discomfort which she sometimes experiences when not having a BM. He believes his last bowel movement was 2 days ago. Claims he has chronic constipation. On the other hand he declines to take scheduled stool softeners. Acknowledges he has had difficulties with ?constipation? for number of years. Has had the indwelling urethral catheter for number of years as well, both related to neurogenic bowel and bladder. Otherwise ready to go back to [facility] later today. Status at Discharge Functional status at discharge: wheelchair bound Overall status at discharge: patient is progressing back to baseline Time Spent with Patient Time attestation: Total time spent providing and/or coordinating discharge services: Time spent: Greater than 30 minutes Exam Narrative: Exam Narrative: General: No acute distress. Awake, alert, oriented. No pallor. No jaundice. Oropharynx: Clear. Mucous membranes moist. Cardiovascular: Regular rate and rhythm. No murmurs, gallops, or rubs. Respiratory: Clear to auscultation bilaterally. No wheezes or crackles. Abdomen: Active bowel sounds, soft, nontender. No rebound or guarding. Const: Vital Signs, click to edit/add: Vital Signs - 24 hr 11/19/24 19:00 11/19/24 22:19 11/19/24 22:19 Temperature 97.6 F Pulse Rate [Pulse Oximeter] 71 65 Respiratory Rate 18 18 18 Blood Pressure [Ri ght Arm] 157/68 H Pulse Oximetry 95 94 Oxygen Delivery Me thod Room Air Room Air 11/19/24 22:19 11/20/24 02:16 11/20/24 07:30 Temperature 97.6 F 97.4 F L Pulse Rate [Pulse Oximeter] 65 67 Respiratory Rate 18 18 18 Blood Pressure [Ri ght Arm] 142/73 H 159/78 H Pulse Oximetry 94 96 96 Oxygen Delivery Me thod Room Air Room Air Room Air 11/20/24 07:30 11/20/24 08:02 Temperature 97.8 F Pulse Rate [Pulse Oximeter] 71 71 Respiratory Rate 18 18 Blood Pressure [Ri ght Arm] 177/75 H Pulse Oximetry 96 Oxygen Delivery Me thod Room Air DS: Data Data Completed and Pending Labs on day of discharge: Labs from last 24 hours 11/20/24 06:12 WBC 8.55 RBC 3.86 L Hgb 10.2 L Hct 32.8 L MCV 85 MCH 26 MCHC 31 L RDW Coeff of [place] 17.6 H Plt Count 212 Neut % (Auto) 76.8 H Lymph % (Auto) 11.2 L [place] % (Auto) 5.4 Eos % (Auto) 5.6 Baso % (Auto) 0.1 Neut # (Auto) 6.60 Lymph # (Auto) 1.00 [place] # (Auto) 0.50 Eos # (Auto) 0.48 Baso # (Auto) 0.01 Abs Immat Gran (auto) 0.08 Imm/Tot Granulo (auto) 0.9 Sodium 139 Potassium 3.5 L Chloride 108 Carbon Dioxide 23 Anion Gap 8 BUN 14 Creatinine 0.7 Estimated Creat Clear 75.35 Estimated GFR 97 Glucose 172 H Calcium 9.4 Total Bilirubin 0.6 Direct Bilirubin 0.5 AST 33 ALT 51 H Alkaline Phosphatase 156 H C-Reactive Protein 7.3 H Total Protein 6.8 Albumin 3.5 Preliminary micro results at discharge 11/16/24 13:24 Blood Culture - Preliminary Blood NO GROWTH AFTER 96 HOURS 11/16/24 13:06 Blood Culture - Preliminary Blood NO GROWTH AFTER [address] scan of abdomen and pelvis: Attestation: I have reviewed the pertinent imaging results. Radiologist's impression: FINDINGS: Lung bases: No pleural effusion. Liver: Smooth hepatic contour. Indeterminate hypoattenuating lesion in the hepatic dome measuring 6.5 centimeters (2/22) and indeterminate hypoattenuating lesion in hepatic segment 7 measuring 1 centimeter (2/37) are unchanged in size since 08/07/2024, although the hepatic dome lesion has decreased in attenuation since 08/07/2024 and now demonstrates mostly water attenuation aside from a unchanged 1 centimeter hyperattenuating nodule at its anterior aspect. Gallbladder and biliary tree: The gallbladder has been decompressed with a percutaneous cholecystostomy tube. There is mild pericholecystic fat stranding. Spleen: Mild splenomegaly. Pancreas: Normal. Adrenal glands: Mild nodular thickening of the right adrenal gland is unchanged. Normal left adrenal. Kidneys and ureters: No hydroureteronephrosis. There are several bilateral simple renal cysts as well as a few hypoattenuating left renal lesions which were reported to represent proteinaceous/hemorrhagic cysts on the comparison MRI. Bladder: The bladder has been decompressed with a Eason catheter. There is trace gas in the bladder presumably due to instrumentation. Visualized reproductive organs: Unremarkable CT appearance. Gastrointestinal tract: No focal abnormally dilated loops of bowel. Normal appendix. Peritoneal cavity: No free fluid or free air. Lymph nodes: Similar mildly enlarged right upper abdominal quadrant lymph nodes such as a 15 millimeter peripancreatic node (2/56). Vessels: No abdominal aortic aneurysm. Moderate to severe atherosclerotic vascular calcifications. Abdominal and pelvic wall: There is a 8.2 centimeter lobulated lesion with central mostly fat attenuation, peripheral soft tissue attenuation, and multiple septations in the subcutaneous fat of the left paramidline posterior pelvis which is grossly similar since a 08/07/2024 CT of the abdomen, possibly representing fat necrosis or postoperative change (2/136). There is also some scarring at the posterior aspect of the right paramidline pelvic subcutaneous fat. Tiny fat containing umbilical hernia. Status post percutaneous cholecystostomy. Partially imaged gynecomastia. Bones: There are osseous degenerative changes. Multiple old left-sided rib fractures. Status post right proximal femur ORIF. IMPRESSION: 1. No acute findings in the abdomen or pelvis. 2. The gallbladder is decompressed by a percutaneous cholecystostomy tube. There is mild pericholecystic fat stranding. 3. Two indeterminate hepatic lesions are similar since and more fully characterized on the 08/30/2024 MRI. 4. Similar mildly enlarged right upper abdominal quadrant lymph nodes. 5. There is a 8.2 centimeter lobulated lesion with central mostly fat attenuation, peripheral soft tissue attenuation, and multiple septations in the subcutaneous fat of the left paramidline posterior pelvis which is grossly similar since a 08/07/2024 CT of the abdomen, possibly representing fat necrosis or postoperative change. Correlate with clinical history. 6. Several additional chronic and incidental findings are detailed above. Right wrist x-ray: Attestation: I have reviewed the pertinent imaging results. Radiologist's impression: FINDINGS: Mild diffuse skeletal demineralization may be due to disuse/under use. Mild periarticular soft tissue swelling. Please correlate clinically. Chondrocalcinosis within the wrist/triangular fibrocartilage seen previously. There is narrowing of the radiocarpal joint space as well as the scapholunate articulation. There is an old presumed fracture deformity of the distal right 5th metacarpal. No acute fracture or dislocation. No active erosions. IMPRESSION : 1. Skeletal demineralization and osteoarthritis. 2. Chondrocalcinosis. 3. Old fracture deformity distal right 5th metacarpal. Chest x-ray: Attestation: I have reviewed the pertinent imaging results. Radiologist's impression: FINDINGS: Mild diffuse skeletal demineralization may be due to disuse/under use. Mild periarticular soft tissue swelling. Please correlate clinically. Chondrocalcinosis within the wrist/triangular fibrocartilage seen previously. There is narrowing of the radiocarpal joint space as well as the scapholunate articulation. There is an old presumed fracture deformity of the distal right 5th metacarpal. No acute fracture or dislocation. No active erosions. IMPRESSION : 1. Skeletal demineralization and osteoarthritis. 2. Chondrocalcinosis. 3. Old fracture deformity distal right 5th metacarpal. Discharge Plan Discharge Disposition: [facility] Discharge Location: [facility] Date of Admission: 11/16/24 16:21 Attending Provider on Discharge: Kali Galindo Consulting Providers: Stella Mejia; Junie Ladneros; Stella Blackwood Primary Care Provider: Bijan Crawford Discharge Medications: New allopurinol 100 mg Tablet 100 mg PO DAILY Qty: 30 0RF ferrous sulfate 325 mg (65 mg iron) Tablet 325 mg PO Q48H Qty: 15 0RF amoxicillin-pot clavulanate 875-125 mg Tablet 1 tab PO BIDWM 10 Days Qty: 20 0RF sulfamethoxazole-trimethoprim 800-160 mg Tablet 1 tab PO BID 10 Days Qty: 20 0RF Continued bacitracin 500 unit/gram ointment 1 applic topical BID sennosides-docusate sodium [Senna Plus] 8.6-50 mg tablet 2 tab-cap PO DAILY Anasept 0.057 % solution 1 applic topical Q8H baclofen 10 mg tablet 10 mg PO BID Eliquis 5 mg tablet 5 mg PO BID atorvastatin 80 mg tablet 80 mg PO HS latanoprost 0.005 % drops 1 drp ophthalmic (eye) HS Rx Instructions: BOTH EYES furosemide 20 mg tablet 20 mg PO QPM bisacodyl 10 mg suppository 10 mg TX DAILY PRN ondansetron HCl 4 mg tablet 4 mg PO Q6H PRN polyethylene glycol 3350 [Gavilax] 17 gram powder in packet 17 g PO DAILY PRN diclofenac sodium 1 % gel 2 g topical BID PRN Ear Wax Removal Kit 6.5 % drops 5 drp otic (ear) .WEEK Patient Comments: every Monday furosemide 40 mg tablet 40 mg PO DAILY potassium chloride 10 mEq capsule, extended release 10 meq PO BIDWM metoprolol succinate 100 mg tablet extended release 24 hr 100 mg PO DAILY aspirin 81 mg tablet,delayed release (DR/EC) 81 mg PO DAILY acetaminophen 500 mg tablet 1,000 mg PO TID nifedipine 90 mg tablet extended release 24hr 90 mg PO DAILY pantoprazole 40 mg tablet,delayed release (DR/EC) 40 mg PO BID calcium carbonate [Zachary-Gest Antacid] 200 mg calcium (500 mg) tablet,chewable 400 mg PO BID polyethylene glycol 3350 17 gram/dose powder 17 g PO DAILY lisinopril 40 mg tablet 40 mg PO DAILY cholecalciferol (vitamin D3) [Vitamin D3] 25 mcg (1,000 unit) tablet 25 mcg PO DAILY Discontinued prednisone 20 mg tablet 60 mg PO DAILY Discharge Orders: Discharge Order (Routine); Ordered 11/20/24 Ordered By: Kali Galindo Activity Level: Other Activity Detail: Frequent repositioning - q 2 hours when in bed. Patient will benefit from offloading mattress and pressure mapping. May sit for meals but no longer than 30 min at a time. Discharge Diet: Diabetic Follow Up Appointments: Bijan Crawford MD [Primary Care Provider] - Forms: [facility] Info Instructions Wound Care: Left sacral wound: Cleanse wound with wound cleanser every other day. Apply medihoney and Mepilex Coccygeal wound: apply mepilex every other day - change if soiled. Cleanse skin with wound cleanser. Left ischial tuberosity wound: Change wound daily or more frequently if soiled from stool. Cleanse wound with wound cleanser and place vashe-soaked gauze in wound. Cover with Mepilex. Admit to: SNF Discharge Potential: Poor Length of Stay: >90 days Can use facility standing orders?: Yes Code Status: DNR Oxygen: No Urinary Catheter: Yes (indwelling) Glucose Checks: Daily Lab Orders: [facility] Monday Orders are good >30 days: No Signature: Monserrat Almonte MD
== END 2024-11-20 10:00 | DRG 570 ==
LOC: ED 15:10 → MEDSURG 15:49
PROVIDERS: Surgery; Admitting Provider Family Medicine; Emergency Provider Emergency Medicine; PCP Family Medicine; Visit Provider Family Medicine
PROC: 0JB70ZZ Excision of Back Subcutaneous Tissue and Fascia, Open Approach (ICD-10-PCS; principal; 2024-11-18 12:45)
DX: L03.317 Cellulitis of buttock (principal); L89.153 Pressure ulcer of sacral region, stage 3; L89.323 Pressure ulcer of left buttock, stage 3; Z16.24 Resistance to multiple antibiotics; K59.2 Neurogenic bowel, not elsewhere classified; G82.20 Paraplegia, unspecified; N31.2 Flaccid neuropathic bladder, not elsewhere classified; G35 Multiple sclerosis; E11.65 Type 2 diabetes mellitus with hyperglycemia; M10.9 Gout, unspecified; L89.151 Pressure ulcer of sacral region, stage 1; R41.82 Altered mental status, unspecified; I10 Essential (primary) hypertension; M25.531 Pain in right wrist; B95.62 Methicillin resistant Staphylococcus aureus infection as the cause of diseases classified elsewhere; B96.20 Unspecified Escherichia coli [E. coli] as the cause of diseases classified elsewhere; B96.1 Klebsiella pneumoniae [K. pneumoniae] as the cause of diseases classified elsewhere; B95.1 Streptococcus, group B, as the cause of diseases classified elsewhere; B96.89 Other specified bacterial agents as the cause of diseases classified elsewhere; E66.9 Obesity, unspecified; Z68.32 Body mass index [BMI] 32.0-32.9, adult; Z96.0 Presence of urogenital implants; G47.30 Sleep apnea, unspecified; Z99.89 Dependence on other enabling machines and devices; E78.5 Hyperlipidemia, unspecified; I25.10 Atherosclerotic heart disease of native coronary artery without angina pectoris; D64.9 Anemia, unspecified; Z97.8 Presence of other specified devices; Z86.711 Personal history of pulmonary embolism
CPT/HCPCS: 00902; 36415; 71045; 73110; 74177; 80048; 80053; 80076; 81001; 82565; 82607; 82746; 82803; 82962; 83036; 83540; 83550; 83605; 83690; 85025; 86140; 87040; 87070; 87086; 87186; 87631; 93005; 99100; 99284; 99285; A9270; J0665; J2185; J2250; J2371; J2543; J2704; J3010; J3372; J7050; J7120; Q9967

== ENCOUNTER 2024-11-20 09:37 | Outpatient (CLI) | payer MEDICARE, SELFPAY | END 2024-11-20 09:38 | disposition home or self-care (01) | LOC: AMB 11-21 10:23 | PROVIDERS: PCP Family Medicine; Visit Provider Family Medicine | DX: L89.159 Pressure ulcer of sacral region, unspecified stage (principal) | CPT/HCPCS: A0425; A0428 ==

== ENCOUNTER 2024-11-27 13:38 | Outpatient (CLI) | payer MEDICARE, SELFPAY | END 2024-11-27 13:39 | disposition home or self-care (01) | LOC: WOUND 13:39 | PROVIDERS: PCP Family Medicine; Visit Provider Surgery | DX: L89.324 Pressure ulcer of left buttock, stage 4 (principal); L89.153 Pressure ulcer of sacral region, stage 3; L89.152 Pressure ulcer of sacral region, stage 2; G35 Multiple sclerosis; G82.20 Paraplegia, unspecified; Z99.3 Dependence on wheelchair; Z96.0 Presence of urogenital implants | CPT/HCPCS: 11042; 97597; G0463 ==

== ENCOUNTER 2024-12-04 12:31 | Outpatient (CLI) | payer MEDICARE, SELFPAY | END 2024-12-04 12:32 | disposition home or self-care (01) | LOC: WOUND 12:31 | PROVIDERS: PCP Family Medicine; Visit Provider Surgery | DX: L89.893 Pressure ulcer of other site, stage 3 (principal); L89.324 Pressure ulcer of left buttock, stage 4; G35 Multiple sclerosis; G82.20 Paraplegia, unspecified; Z99.3 Dependence on wheelchair | CPT/HCPCS: 97597 ==

== ENCOUNTER 2024-12-06 07:57 | Outpatient (CLI) | payer MEDICARE, SELFPAY ==
[2024-12-06 08:15] LABS: Eosinophils Absolute Auto 0.06 K/uL (0.00-0.50); Eosinophils Percent Auto 1.1 % (0.0-7.0); Hematocrit 31.1 % (37.0-53.0); Hemoglobin* 9.6 gm/dL (13.5-17.5); Immature Granulocytes Abs Auto 0.02 K/uL (0.00-0.30); Immature Granulocytes Pct Auto 0.4 %; Lymphocytes Absolute Auto 1.09 K/uL (0.90-2.90); Lymphocytes Percent Auto 20.1 % (20-44); Mean Corpuscular HGB Conc 31 gm/dL (32-36); Mean Corpuscular Hemoglobin 26 pg (26-34); Mean Corpuscular Volume 84 fL (80-100); Monocytes Percent Auto 13.1 % (0.0-11.0); Neutrophils Absolute Auto 3.53 K/uL (1.7-7.0); Neutrophils Percent Auto 65.3 % (42.0-72.0); Platelet Count* 188 K/uL (140-440); RDW Coefficient of Variation % 18.2 % (11.5-15.5); White Blood Count* 5.41 K/uL (4.50-11.00)
[2024-12-06 08:20] LABS: Slide Review Reflex No
[2024-12-06 08:29] LABS: Albumin* 3.4 g/dL (3.3-5.0); Chloride* 104 mmol/L (96-114); Potassium* 4.4 mmol/L (3.6-5.1); Sodium* 137 mmol/L (135-149)
[2024-12-06 08:32] LABS: Alanine Aminotransferase* 25 U/L (4-50); Alkaline Phosphatase* 97 U/L (40-150); Anion Gap 6 mEq/L (7-15); Aspartate Amino Transferase* 33 U/L (12-35); Bilirubin Direct* 0.4 mg/dL (0.0-0.5); Bilirubin Total* 0.6 mg/dL (0.1-1.5); Blood Urea Nitrogen* 31 mg/dL (7-30); Calcium* 9.1 mg/dL (8.4-10.6); Carbon Dioxide* 27 mmol/L (20-32); Creatinine* 0.9 mg/dL (0.5-1.5); Estimated Glomerular Filt Rate 90 ml/min; Glucose* 158 mg/dL (60-115); Total Protein* 6.6 g/dL (6.0-8.3)
== END 2024-12-06 07:58 | disposition home or self-care (01) ==
LOC: NPINS 07:58
PROVIDERS: PCP Family Medicine; Referring Provider Nurse Practitioner Gerontology; Visit Provider Internal Medicine Gastroenterology
DX: R53.83 Other fatigue (principal)
CPT/HCPCS: 80048; 80076; 85025

== ENCOUNTER 2024-12-06 13:31 | Outpatient (REF) | payer MEDICARE, SELFPAY ==
[2024-12-06 13:46] LABS: Appearance Urine Slightly Cloudy (Clear); Bilirubin Urine Negative (Negative); Blood Urine 3+ (Negative); Color Urine Brown (Yellow); Glucose Urine Negative (Negative); Ketones Urine Negative (Negative); Leukocyte Esterase Urine Trace (Negative); Nitrite Urine Negative (Negative); Protein Urine Negative (Negative); Urobilinogen Urine 0.2 (0.2-1.0); pH Urine 5.5 (5.0-8.5)
[2024-12-06 14:03] LABS: RBC Urine 25-50 (0-2); Squamous Epithelial Cell Urine Few (None-Few); WBC Urine 0-2 (0-5)
== END 2024-12-06 13:32 | disposition home or self-care (01) ==
LOC: NPINS 13:31
PROVIDERS: PCP Family Medicine; Visit Provider Family Medicine
DX: R53.83 Other fatigue (principal); Z87.440 Personal history of urinary (tract) infections; N31.9 Neuromuscular dysfunction of bladder, unspecified; G35 Multiple sclerosis; Z97.8 Presence of other specified devices
CPT/HCPCS: 81001; 81003; 87086

== ENCOUNTER 2024-12-11 12:20 | Outpatient (CLI) | payer MEDICARE, SELFPAY | END 2024-12-11 12:21 | disposition home or self-care (01) | LOC: WOUND 12:20 | PROVIDERS: PCP Family Medicine; Visit Provider Nurse Practitioner Family | DX: L89.324 Pressure ulcer of left buttock, stage 4 (principal); L89.150 Pressure ulcer of sacral region, unstageable; L89.322 Pressure ulcer of left buttock, stage 2; G35 Multiple sclerosis; G82.20 Paraplegia, unspecified; Z99.3 Dependence on wheelchair | CPT/HCPCS: G0463 ==

== ENCOUNTER 2024-12-12 12:54 | Outpatient (CLI) | payer MEDICARE, SELFPAY | END 2024-12-12 12:55 | disposition home or self-care (01) | LOC: AMB 12-13 10:37 | PROVIDERS: PCP Family Medicine; Visit Provider Emergency Medicine | DX: R53.1 Weakness (principal); R41.82 Altered mental status, unspecified; G82.50 Quadriplegia, unspecified | CPT/HCPCS: A0425; A0429 ==

== ENCOUNTER 2024-12-12 13:17 | Inpatient (IN) | payer MEDICARE, SELFPAY ==
--- OUTSIDE RECORDS SUMMARY | 2024-11-05 07:35 | XMS_ITS | Encounter Summary ---
Author Organization [facility] Address [address] [place] [address] Care Team Providers Care Resident Care Associate Name Role Phone Jeff Reyes M.D. Primary Care Provider [phone] Reason for Referral * Outpatient (Routine) - Closed Specialty Diagnoses / Procedures Referred By Contac t Referred To Contact Diagnoses Cholecystitis Procedures ECG 12 Lead Roland Benson D.O. [address] [place] [address] Phone: tel: fax: [facility] Referral ID Status Reason Start Date Expiration Date Visits Re quested Visits Authorized [id number] Closed 09/20/2024 12/21/2025 1 1 Reason for Visit * Outpatient (Routine) - Closed Specialty Diagnoses / Procedures Referred By Contac t Referred To Contact Diagnoses Cholecystitis Procedures ECG 12 Lead Roland Benson D.OAmparo [address] [place] [address] Phone: tel: fax: [facility] Referral ID Status Reason Start Date Expiration Date Visits Re quested Visits Authorized [id number] Closed 09/20/2024 12/21/2025 1 1 Encounter Details Date Type Department Care Team (Latest Contact Info) Description 11/05/2024 7:35 AM CDT - 11/05/2024 9:23 AM CDT Hospital Encounter Department of Laboratory Medicine in [place], [place] [address] [place] [address] Roland Benson D.O. [address] [place] [address] Cholecystitis Discharge Disposition: Home or Self Care Social History Tobacco Use Types Packs/Day Years Used Date Smoking Tobacco: Former Cigarettes Q uit: 1977 Passive Smoke Exposure: Never Alcohol Use Standard Drinks/Week Comments Not Currently 1 (1 standard drink = 0.6 oz pur e alcohol) [facility] Utilities Answer Date Recorded In the past 12 months has e [place], gas, oil, or water [employer] threatened to shut off services in your [...] often do you attend chur ch or mandaeism services? Never 10/18/2022 Do you belong to any clubs o r organizations such as jew groups, unions, fraternal or athletic groups, or [...] Answer Date Recorded PHQ-2 Score 0 02/07/2024 [facility] - Occupational Stress Questionnaire Answer Date [...] your living situation today? I have a [facility] place to live 08/08/2024 Education Answer Date Recorded What is the highest level of school you have completed or the highest degree you have received? 12th grade 10/18/2022 Sex and Gender Information Value Date Recorded Sex Assigned at Male 06/26/2018 4:20 PM PUTTY MAKER Legal Sex Male 3:33 AM PUTTY MAKER Gender Identity Not on file Sexual Orientation Not on file documented as of this encounter Medications at Time of Discharge [...] total) by mouth daily. 60 tablet 11/13/2022 bacitracin 500 unit/gram ointment Apply 1 Application topically 2 (two) times a day. 08/10/2023 baclofen (LIORESAL) 10 mg tabletIndication s:Multiple Sclerosis (HCC) Take 1 tablet (10 mg total) by mouth 2 (two) times a day. 60 tablet 12/08/2022 calcium carbonate (TUMS) 500 mg (200 mg [...] mg tablet Take 40 mg by mouth every morning. GAS RELIEF 80 mg chewable tablet Chew [...] not crush or chew. 90 tablet 11/13/2022 NIFEdipine XL (PROCARDIA XL) 90 mg 24 hr tablet Take 1 tablet (90 mg total) by mouth daily. 90 tablet 12/09/2022 ondansetron (ZOFRAN) 4 mg tablet Take 4 mg by mouth every 6 (six) hours as needed for nausea or vomiting. 06/23/2023 oxyCODONE (Roxicodone) 5 mg immediate release tablet Take 5 mg by mouth every 6 (six) hours as needed for severe pain or score 7-10 of 10. 08/29/2024 pantoprazole (PROTONIX) 40 mg EC tablet Take [...] (two) times a day with meals. 08/16/2024 senna 8.6 mg tablet Take 8.6 mg by mouth 2 (two) times a day. 08/23/2024 sennosides-docus ate sodium (SENOKOT-S) 8.6-50 mg per tabletIndication s:Neurogenic Bowel Take 1 tablet by mouth 2 (two) times a day as needed for constipation. 07/04/2018 atorvastatin (LIPITOR) 40 mg tablet Take 1 tablet (40 mg total) by mouth at bedtime. 30 tablet 11/13/2022 documented as of this encounter Plan of Treatment Upcoming Encounters Date Type Department Care Team (Late st Contact Info) Description 02/06/2025 9:00 AM CDT Appointment Department of Radiology in [place], [place] [address] [place] [address] Pablo Vo M.D. [address] [place] [facility] [place] [phone] 02/11/2025 2:40 PM CDT Office Visit Department of Oncology in [place], [place] [address] [place] [address] Pablo Vo M.D. [address] [place] [facility] [place] [phone] documented as of this encounter Procedures Procedure Name Priority Date/Time Associated Diagnosis Comments ECG Routine 11/05/2024 7:43 AM CDT Cholecystitis documented in this encounter Results * ECG 12 Lead (11/05/2024 7:43 AM CDT) Ventricular Rate ECG/Min 62 BPM MUSE [place] Interval 210 ms MUSE QRSD Interval 102 ms MUSE QT Interval 396 ms MUSE QTC Interval 401 ms MUSE P [place] 52 degrees MUSE R [place] -16 degrees MUSE T Wave [place] 46 degrees MUSE 11/05/2024 7:43 AM CDT 11/05/2024 7:57 AM CDT Impressions MUSE - 11/05/2024 7:57 AM CDT Sinus rhythm with 1st degree A-V block Otherwise normal ECG When compared with ECG of 08-Aug-2024 05:57, No significant change was found Reviewed by VALE Tucker Narrative Procedure Note Obie Bradley Jr., M.D. - 11/05/2024 IMPRESSION: Sinus rhythm with 1st degree A-V block Otherwise normal ECG When compared with ECG of 08-Aug-2024 05:57, No significant change was found Reviewed by VALE Tucker us Roland Benson D.O. ECG ORDERABLES Final Resul t MUSE NA documented in this encounter Visit Diagnoses Diagnosis Cholecystitis documented in this encounter Additional Health Concerns Assessment Noted Time PHQ-9 Depression Total Score: 10 05/26/ 018 11:00 AM CDT documented as of this encounter Care Teams Resident Care Associate Relationship Specialty Start Date End Date Jeff Reyes M.D. [address] [place] [phone] PCP - General 03/14/24 documented as of this encounter
--- OUTSIDE RECORDS SUMMARY | 2024-11-05 08:45 | XMS_ITS | Encounter Summary ---
Author Organization [facility] Address [address] [place] [id number] Care Team Providers Care Line Driver Name Role Phone Jeff Reyes M.D. Primary Care Provider [phone] Reason for Referral * Outpatient (Routine) - Closed Specialty Diagnoses / Procedures Referred By Jono donohue Referred To Contact Cardiovascular Disease Thaddeus Li M.D. [address] [place] [address] Phone: tel: fax: [facility] Referral ID Status Reason Start Date Expiration Date Visits Re quested Visits Authorized [id number] Closed 11/05/2024 05/07/2026 1 1 * Cardiovascular-Diagnostic (Routine) - Closed Specialty Diagnoses / Procedures Referred By Jono donohue Referred To Contact Diagnoses Cholecystitis Preoperative Examination Cardiovascular Hyperlipidemia On Treatment Atherosclerotic Heart Disease Of [place] Coronary Artery Without Angina Pectoris Procedures Echo Stress Thaddeus Li M.D. [address] [place] [address] Phone: tel: fax: [facility] Referral ID Status Reason Start Date Expiration Date Visits Re quested Visits Authorized [id number] Closed 11/05/2024 02/05/2026 1 1 Reason for Visit * Reason Comments Consult * Outpatient (Routine) - Closed Specialty Diagnoses / Procedures Referred By Contact Referred To Contact Cardiovascular Diseases / Cardiovascular Disease Diagnoses Cholecystitis Roland Benson D.O. [address] [place] [address] Phone: tel: fax: [facility] Region Referral ID Status Reason Start Date Expiration Date Visits Re quested Visits Authorized [id number] Closed 09/20/2024 03/22/2026 1 1 Encounter Details Date Type Department Care Team (Latest Contact Info) Description 11/05/2024 8:45 AM CDT Comprehensive Visit Department of Cardiovascular Diseases in [place], [place] [address] [place] [phone] Thaddeus Li M.D. [address] [place] [phone] Preoperative Examination Cardiovascular (Primary Dx); Cholecystitis; Hyperlipidemia On Treatment; Atherosclerotic Heart Disease Of [place] Coronary Artery Without Angina Pectoris Social History Tobacco Use Types Packs/Day Years Used Date Smoking Tobacco: Former Cigarettes Q uit: 1977 Passive Smoke Exposure: Never Tobacco Cessation:Counseling Given: Not Answered Alcohol Use Standard Drinks/Week Comments Not Currently 1 (1 standard drink = 0.6 oz pur e alcohol) [facility] Utilities Answer Date Recorded In the past 12 months has [facility] [employer] gas, oil, or water [employer] threatened to shut off services in your home? No 11/08/2024 Humiliation, Afraid, Rape, and Kick questionnair e [...] How often do you attend chur or druze services? Never 10/18/2022 Do you belong to any clubs o r organizations such as confucianist groups, unions, fraternal or athletic groups, or [...] Answer Date Recorded PHQ-2 Score 0 02/07/2024 [facility] - Occupational Stress Questionnaire Answer Date [...] to strenuous exercise (like a brisk walk)? Patient declined On average, how many minutes do you engage in exercise at this level? Patient declined 11/08/2024 Hunger Vital Sign Answer Date Recorded Within the past 12 months, y ou worried that your food would run out before you got the money to buy more. Never true 11/09/19 25 Within the past 12 months, t he food you bought just didn't last and you didn't have money to get more. Never true 11/08/2024 PRAPARE - Transportation Answer Date Re corded In the past 12 months, has l ack of transportation kept you from medical appointments or from getting medications? No 11/08/2024 In the past 12 months, has l ack of transportation kept you from meetings, work, or from getting things needed for daily living? Patient declined 11/08/2024 Nutrition Answer Date Recorded On average, how many serving s of fruits and vegetables do you eat per day (serving size is equal to 1 cup or approximately the size of a tennis ball)? 3-5 11/08/2024 Dental Answer Date Recorded Dental: Regular Dentist Yes 10/19/19 Employment Answer Date Recorded Employment status Permanently disabled Housing Stability Answer Date Recorded What is your living situation today? I have a [facility] place to live 11/08/2024 Education Answer Date Recorded What is the highest level of school you have completed or the highest degree you have received? 12th grade 10/18/2022 Sex and Gender Information Value Date Recorded Sex Assigned at Male 06/26/2018 4:20 PM [employer] Legal Sex Male 3:33 AM [employer] Gender Identity Not on file Sexual Orientation Not on file documented as of this encounter Last Filed Vital Signs Vital Sign Reading Time Taken Comments Blood Pressure 108/46 11/05/2024 8:24 AM CDT Pulse 60 11/05/2024 8:24 AM CDT Temperature 36.4 C (97.5 F) 11/05/2024 8:21 AM CDT Respiratory Rate - - Oxygen Saturation 94% 11/05/2024 8:2 1 AM CDT Inhaled Oxygen Concentration - - Weight 114 kg (252 lb) 11/05/2024 8:21 AM CDT reported by patient Height - - Body Mass Index 34.17 09/15/2024 3:21 PM [employer] documented in this encounter Patient Instructions * Patient Instructions* Thaddeus Li M.D. - 11/05/2024 8:45 AM CDT Stress echo in [place] next available Please keep apt with Hematology Please request apt with primary provider Repeat cholesterol check (blood test) next available Video follow up visit with Cardiology after stress echo documented in this encounter Consult Notes * Thaddeus Li M.D. - 11/05/2024 8:45 AM CDT REASON FOR CONSULT Preanesthesia medical evaluation in anticipation of cholecystectomy. REFERRAL SOURCE Roland Benson D.O., with General Surgery. HISTORY OF PRESENT ILLNESS Mr. Ramirez is an absolutely delightful 74-year-old gentleman who presents to clinic today along with his son, Sabino, for preanesthesia medical evaluation in anticipation of cholecystectomy. This occurs in a background history of primary progressive multiple sclerosis for which he has beenwheelchair-bound now for about the last 1-1/2 to 2 years. His course has also been complicated by neurogenic bowel and bladder, hypertension, CPAP adherent SOPHIA, as well as a history of coronary disease diagnosed during a hospitalization for urosepsis in 2018 when troponins were elevated and a cardiac CT revealed nonobstructive coronary disease. More recently, in July of 2024 he was hospitalized with cholecystitis; and that hospitalization was complicated by bilateral DVTs as well as a pulmonary embolism as well as an acute kidney injury.I understand that in the emergency room in [place], a DVT study was positive for a right posterior tibial as well as a left peroneal DVT; and then CT PE protocol on August 08 revealed a subsegmental PE without evidence of RV strain on the CT but with evidence of RV dysfunction on the TTE at thetime (see diagnostics section below for details). In the setting of multi-morbidity and the need for anticoagulation, the patient ultimately underwent a percutaneous cholecystostomy tube with Interventional Radiology. He then followed up with Dr. Benson in the outpatient setting who offered a cholecystectomy after preanesthesia medical evaluation versus consideration for removing the drain and monitoring for recurrence. Since that drain placement, the patient has required an ER visit in August as the drain would notflush. He has had the tube exchanged on October 01 and then again on October 24, 2024. Of late, the patient has been feeling well and denies any recent right upper quadrant pain or any recent fevers or chills. The drain is draining serous fluid today. He denies any recent issues with any anginal-sounding chest pain nor any recent troubles with shortness of breath. He has never syncopized. He denies palpitations. Cardiovascular review of systems isreally unremarkable. He has been tolerating the Eliquis well without any issues with bleeding as far as he can tell. His exercise ability is limited by his multiple sclerosis. He does not walk or climb stairs. Together we reviewed the DASI score, and it reached a total of 2.7 points suggesting he could reach up to 3.07 METS. CURRENT MEDICATIONS Current Medications[1] MEDICAL HISTORY Reviewed with pertinent findings as noted in the HPI. SOCIAL HISTORY Mr. Ramirez currently lives in [facility] in [place], [place]. He has about a [id number] smoking history, quitting in 1978. He denies any current alcohol intake and denies ever using any recreational drugs. FAMILY HISTORY Family history is notable for hypertension but no other known cardiovascular disease. OBJECTIVE PHYSICAL EXAMINATION Vitals: Weight is 252 pounds. SpO2 is 94% on room air. Heart rate 60 beats per minute. Blood pressure on the right 110/45, on the left 108/46. General: Appears comfortable, stated age, and in no acute distress. He is examined in the wheelchair today. Cardiovascular: Regular rate and rhythm with distant heart sounds but I do not appreciate any murmurs, clicks, rubs, or gallops. I am unable to confidently appreciate the jugular venous pressure at the bedside today. Lungs: Clear to posterior auscultation. Extremities: Extremities are warm with bilateral pitting edema. Radial pulses are 2+ bilaterally. Psych: Pleasant affect. Thought processes are linear and goal oriented. Abdomen: The percutaneous cholecystostomy tube is in place and I did not remove the bandages today and the discharge through that drain is serous. DIAGNOSTICS CT coronary angiogram from May of 2018 revealed a soft plaque in the mid RCA leading to up to moderate stenosis. He exhibited a right dominant system with a patent left main but some plaque there as well as well as a mild plaque in the LAD, but the circumflex was limited by motion artifact. This was followed up with a nuclear stress test in June of 2018 which revealed a mild fixed defect in the inferior base and mid level (in light of subsequent absent regional wall motion abnormalities on echocardiogram, I suspect this was most likely diaphragmatic attenuation in light of his size). CT PE protocol from August 08, 2024, revealed subsegmental PE without evidence of RV strain and aortic atherosclerosis as well as coronary artery calcifications. TTE from August 08, 2024, with normal LV size. EF 68. No regional wall motion abnormalities but a flattened interventricular septum. Normal LV filling pressures at rest with 1/3 diastolic dysfunction. Moderate to severe RV enlargement with mild to moderately reduced systolic function. Estimated RVSP 45 and an estimated central venous pressure of 5 and a systemic blood pressure of 116. No hemodynamically significant valvular heart disease and no pericardial effusion. Labs from 08/08/2024 with high-sensitivity troponin 54. When we contrast this with labs from 2021, his high sensitivity troponin was 13 followed by 13. Most recent renal function from August of 2024 with GFR 83. Most recent lipids from October 25, 2021, with total cholesterol 202, HDL 44, LDL 103, triglycerides 273 (this was on atorvastatin 40). Twelve-lead ECG from today with normal sinus rhythm at 62 beats per minute and a first-degree AV block at 210 milliseconds but no other specific diagnostic abnormalities. ASSESSMENT / PLAN #1 Preanesthesia medical evaluation in anticipation of cholecystectomy #2 Cholecystitis, status post percutaneous cholecystostomy tube in place #3 Nonobstructive coronary artery disease based on CT coronary angiogram in May of 2018 #4 Dyslipidemia, on high-intensity statin but not quite yet at target #5 Possible pulmonary hypertension with estimated RVSP of 45 on TTE in July of 2024 (normal central venous pressure estimated at that time) #6 Bilateral acute DVTs and subsegmental PE diagnosed in July of 2024 at the time of sepsis fromcholecystitis It was an absolute pleasure meeting and visiting with the Ashley family in the Cardiovascular Clinic today. Fortunately, from a cardiovascular symptomatic perspective, he has done quite well of late; but hisinability to reach much in the way of a functional capacity begs a number of questions about safetyof moving forward with this moderate- risk procedure. We reviewed options in detail. We reviewed that it is fairly infrequent that we recommend stress testing in anticipation of moderate-risk procedures; but in his case, I would favor moving forward with an updated stress echocardiogram both to reassess the RV size and function as well as the estimated RVSP in light of his recent PE with hopes to see improvement after 3 months of oral anticoagulation; but I would also recommend a dobutamine stress echocardiogram to assess for any meaningful stress-induced ischemia. We reviewed if this is reassuringly normal or low-risk that we could move forwardwith the procedure with medical therapy. We reviewed if this is very abnormal, then we would favor a coronary angiogram plus/minus PCI; and if treated in such a way, this would then commit him to a minimum of 3 months of dual antithrombotic therapy (likely OAC + P2Y12 inhibitor) and would then require further delays in ultimate cholecystectomy. We reviewed options in detail and ultimately together agreed to coordinate a dobutamine stress echocardiogram in [place] next available and then will coordinate a video followup visit with me firstavailable after this to review results and next steps. In the interim, I would favor an LDL target less than 70 in light of his nonobstructive coronary disease in the past. Back in 2021 on atorvastatin 40, he was not quite at target; but ultimately, together we agreed to update another lipid panel to reassess; and if his LDL is well above 70, I would favor increasing the dose of atorvastatin. We will close that loop after updated check. We focused the majority of today's visit on preanesthesia medical evaluation, but we did briefly touch upon the pulmonary embolism. We reviewed that now that he has maintained therapies for about 3 months since diagnosis, it would be reasonable to pause around a cholecystectomy. We reviewed that his cholecystitis at the time was one clear risk factor for venous thromboembolism but that his prolonged immobility would be a risk factor for future VTE; and with this in mind, I would lean towards long-term oral anticoagulation. I see that he is set to visit with Hematology later to review this in detail, and I asked him to keep that appointment. I also specifically asked him to request an appointment with his new primary care provider for hospital followup and for long-term cares, and he expressed understanding and agreement. We will review periprocedural antithrombotic recommendations after upcoming stress echo. Today, I answered all of his questions to the very best of my ability. I gave him a copy of my cardand asked him not to hesitate to reach out with any nonemergent questions or concerns between now and planned followup. Thaddeus Li M.D. CT CT Job ID: [id number] [1] Current Outpatient Medications: acetaminophen (TylenoL) 500 mg tablet, Take 2 tablets (1,000 mg total) by mouth 3 (three) times a day., Disp: , Rfl: apixaban (Eliquis) 5 mg tablet, Take 2 tablets (10 mg total) by mouth 2 (two) times a day for 3 days, THEN 1 tablet (5 mg total) 2 (two) times a day., Disp: 192 tablet, Rfl: [address] tablet, Take 1 tablet (81 mg total) by mouth daily., Disp: 60 tablet, Rfl: 0 bacitracin 500 unit/gram ointment, Apply 1 Application topically 2 (two) times a day., Disp: , Rfl: baclofen (LIORESAL) 10 mg tablet, Take 1 tablet (10 mg total) by mouth 2 (two) times a day., Disp: 60 tablet, Rfl: 0 calcium carbonate (TUMS) 500 mg (200 mg calcium) chewable tablet, Chew 2 tablets (400 mg of calciumtotal) 2 (two) times a day., Disp: , Rfl: cholecalciferol 25 mcg (1,000 unit) tablet, Take 1 tablet (25 mcg total) by mouth daily., Disp: , Rfl: diclofenac sodium (Voltaren) 1 % gel, Apply 2 g topically 2 (two) times a day as needed (pain)., Disp: , Rfl: furosemide (LASIX) 20 mg tablet, Take 1 tablet (20 mg total) by mouth daily., Disp: 30 tablet, Rfl:11 furosemide (Lasix) 40 mg tablet, Take 40 mg by mouth every morning., Disp: , Rfl: GAS RELIEF 80 mg chewable tablet, Chew 1 tablet (80 mg total) 4 (four) times a day as needed for flatulence., Disp: , Rfl: latanoprost (XALATAN) 0.005 % ophthalmic solution, Administer 1 drop into both eyes daily., Disp: ,Rfl: lisinopriL (PRINIVIL,ZESTRIL) 40 mg tablet, Take 1 tablet (40 mg total) by mouth daily., Disp: 90 tablet, Rfl: 0 melatonin 5 mg tablet, Take 1 tablet (5 mg total) by mouth at bedtime as needed (for sleep)., Disp:30 tablet, Rfl: 11 metoprolol succinate (TOPROL-XL) 100 mg 24 hr tablet, Take 1 tablet (100 mg total) by mouth daily. Do not crush or chew., Disp: 90 tablet, Rfl: 0 NIFEdipine XL (PROCARDIA XL) 90 mg 24 hr tablet, Take 1 tablet (90 mg total) by mouth daily., Disp:90 tablet, Rfl: 0 ondansetron (ZOFRAN) 4 mg tablet, Take 4 mg by mouth every 6 (six) hours as needed for nausea or vomiting., Disp: , Rfl: pantoprazole (PROTONIX) 40 mg EC tablet, Take 1 tablet (40 mg total) by mouth 2 (two) times a day before breakfast and dinner., Disp: 180 tablet, Rfl: 3 polyethylene glycol (MIRALAX) 17 gram powder packet, Take 1 packet (17 g total) by mouth daily as needed for constipation. Dissolve each 17 g dose in 240 mLs (8 ounces) of beverage., Disp: 30 each, Rfl: 1 potassium chloride 10 mEq ER capsule, Take 1 capsule (10 mEq total) by mouth 2 (two) times a day with meals., Disp: , Rfl: senna 8.6 mg tablet, Take 8.6 mg by mouth 2 (two) times a day., Disp: , Rfl: sennosides-docusate sodium (SENOKOT-S) 8.6-50 mg per tablet, Take 1 tablet by mouth 2 (two) times aday as needed for constipation., Disp: , Rfl: AntifungaL, clotrimazole, 1 % cream, Apply 1 Application topically 2 (two) times a day., Disp: , Rfl: atorvastatin (Lipitor) 80 mg tablet, Take 1 tablet (80 mg total) by mouth at bedtime., Disp: 90 tablet, Rfl: 3 oxyCODONE (Roxicodone) 5 mg immediate release tablet, Take 5 mg by mouth every 6 (six) hours as needed for severe pain or score 7-10 of 10. (Patient not taking: Reported on 11/12/2024), Disp: , Rfl: documented in this encounter Plan of Treatment Upcoming Encounters Date Type Department Care Team (Late st Contact Info) Description 02/06/2025 9:00 AM CDT Appointment Department of Radiology in [place], [place] [address] [place] [phone] Pablo Vo M.D. [address] [facility] [place] [phone] 02/11/2025 2:40 PM CDT Office Visit Department of Oncology in [place], [place] [address] [facility] [place] [place] [address] Pablo Vo M.D. [address] [facility] [place] [phone] Scheduled Referrals Name Type Priority Associated Diagnoses Order Schedule Cardiovascular Disease office visit (clinic) [facility] Region; General Outpatient Referral Routine Expected: 11/05/2024 (Approximate), Expires: 02/04/2026 documented as of this encounter Results * ECHO STRESS 2D WITH COLOR, DOPPLER AND CONTRAST (11/06/2024 10:03 AM CDT) Ejection Fraction 60 MC CV EIMS Mid-Ascending Aorta 35 MC CV EIMS LV Mass Index 72 MC CV EIMS LV End-Diastolic Diameter 46 MC CV EIMS LV End-Systolic Diameter 31 MC CV EIMS MV E Velocity 0.4 MC CV EIMS MV A Velocity 0.7 MC CV EIMS MV E/A 0.57 MC CV EIMS MV e' Velocity Medial 0.07 MC CV EIMS MV E/e' Medial 5.7 MC CV EIMS LV Interventricular Septal Wall Thickness 11 MC CV EIMS LV Posterior Wall Thickness 10 MC CV EIMS LV Relative Wall Thickness 43 MC CV EIMS RV 4-Chamber Basal Diameter 51 MC CV EIMS RV 4-Chamber Mid Diameter 40 MC CV EIMS RV 4-Chamber Length 80 MC CV EIMS Estimated RA Pressure (Echo RAP) 5 MC CV EIMS LA Volume Index 17 MC CV EIMS WMSI At Rest 1 MC CV EIMS WMSI At Peak Stress 1 MC CV EIMS Anatomical Region Laterality Modality Echocardiography 11/06/2024 8:26 AM CDT Impressions 11/06/2024 11:55 AM CDT STRESS TEST:A peak heart rate of 127 BPM was achieved (87% age-predicted maximal HR). Dobutamine was infused from 5 mcg/kg/min to 40.0 mcg/kg/min. A dose of 0.75 mg of atropine was administered. The test was terminated due to target heart rate achievement. The baseline ECG demonstrated sinus rhythm. The presence of 1 Deg A-V block was noted at baseline. With stress, there were no S-T changes. VPC's present at stress. Junctional rhythm was present with stress (at heart rate of 80 BPM, resolved quickly and spontaneously as the heart rate increased and returned to a sinus rhythm) The stress ECG was negative for ischemia. Please see Nursing Notes for additional information. REST IMAGES: LEFT VENTRICLE:Normal left ventricular chamber size. Abnormal left ventricular geometry with concentric remodeling (increased wall thickness to cavity ratio). Left ventricular mass index by 2D 72 g/m2. Calculated 2-D linear left ventricular ejection fraction 59%. No regional wall motion abnormalities. Grade 1/3 left ventricular diastolic dysfunction, consistent with low to normal left ventricular filling pressure at rest. RIGHT VENTRICLE:Mildly enlarged right ventricular chamber size. Mild-moderately reduced right ventricular systolic function. Unable to detect peak tricuspid regurgitation velocity for pulmonary artery systolic pressure calculation. ATRIA:Normal left atrial size. Left atrial volume index 17 ml/m2. Global averaged left atrial four chamber longitudinal peak systolic strain is borderline at 32.2% (normal is greater than 35%). Normal right atrial size. CARDIAC VALVES:Trileaflet aortic valve. Thickened aortic valve. No aortic valve regurgitation. Thickened mitral valve. Trivial mitral valve regurgitation. Pulmonary valve not well visualized. Trivial pulmonary valve regurgitation. Normal tricuspid valve. Trivial tricuspid valve regurgitation. OTHER ECHO FINDINGS:Normal inferior vena cava size with normal inspiratory collapse (>50%). Normal mid ascending aorta diameter of 35 mm. No intracardiac mass or thrombus identified. Tiny posterior pericardial effusion. Attempts were made to optimize the echocardiographic images and two or more left ventricular segments were not visualized adequately to evaluate cardiac structure. The patient's current allergies and medications have been screened. Intravenous Definity ultrasound enhancement agent(s) administered to enhance endocardial border definition. Imaging enhancement agent administered per Echocardiography Contrast Administration Protocol Reference Document [id number] Rev 11/04/2021. Patient met an inclusion criterion and did not have contraindications in screening sections. For the complete report, see the Order-Level Documents. Narrative 11/06/2024 11:55 AM CDT For the complete report, see the Order-Level Documents. Hemodynamics Heart Rate: 66 BPM Blood Pressure: 164 / 74 mmHg ECG: Sinus rhythm, 1st degree A-V block Final Impressions 1. STRESS IMPRESSIONS: 2. Dobutamine stress echocardiogram negative for myocardial ischemia. 3. A peak heart rate of 127 BPM was achieved (87% age-predicted maximal HR). 4. Ejection fraction response from 60% at rest to 75% at peak stress, left ventricular end-systolic volume decreased with stress. 5. No regional wall motion abnormalities with stress. 6. Stress induced intracavitary gradient/obstruction was present. 7. The stress ECG was negative for ischemia. 8. OTHER ECHO FINDINGS: 9. Mildly enlarged right ventricular chamber size with mild-moderately reduced systolic function 10. Unable to detect peak tricuspid regurgitation velocity for pulmonary artery systolic pressure calculation. 11. Normal inferior vena cava size with normal inspiratory collapse (>50%). 12. Compared to the report of 08/08/2024 the following changes have occurred: The right ventricle is smaller with overall similar systolic function (at best visually slightly improved); unable to estimate RVSP on today's study due to inadequate tricuspid regurgitation signal. Side by side comparison of images performed. Procedure Note Miya Ignacio M.D., M.S. - 11/06/2024 For the complete report, see the Order-Level Documents. Hemodynamics Heart Rate: 66 BPM Blood Pressure: 164 / 74 mmHg ECG: Sinus rhythm, 1st degree A-V block Final Impressions 1. STRESS IMPRESSIONS: 2. Dobutamine stress echocardiogram negative for myocardial ischemia. 3. A peak heart rate of 127 BPM was achieved (87% age-predicted maximalHR). 4. Ejection fraction response from 60% at rest to 75% at peak stress, leftventricular end-systolic volume decreased with stress. 5. No regional wall motion abnormalities with stress. 6. Stress induced intracavitary gradient/obstruction was present. 7. The stress ECG was negative for ischemia. 8. OTHER ECHO FINDINGS: 9. Mildly enlarged right ventricular chamber size with mild-moderatelyreduced systolic function 10. Unable to detect peak tricuspid regurgitation velocity for pulmonaryartery systolic pressure calculation. 11. Normal inferior vena cava size with normal inspiratory collapse(>50%). 12. Compared to the report of 08/08/2024 the following changes haveoccurred: The right ventricle is smaller with overall similar systolicfunction (at best visually slightly improved); unable to estimate RVSP ontoday's study due to inadequate tricuspid regurgitation signal. Side byside comparison of images performed. Findings STRESS TEST:A peak heart rate of 127 BPM was achieved (87% age-predictedmaximal HR). Dobutamine was infused from 5 mcg/kg/min to 40.0 mcg/kg/min.A dose of 0.75 mg of atropine was administered. The test was terminateddue to target heart rate achievement. The baseline ECG demonstrated sinusrhythm. The presence of 1 Deg A- V block was noted at baseline. Withstress, there were no S-T changes. VPC's present at stress. Junctionalrhythm was present with stress (at heart rate of 80 BPM, resolved quicklyand spontaneously as the heart rate increased and returned to a sinusrhythm) The stress ECG was negative for ischemia. Please see Nursing Notesfor additional information. REST IMAGES: LEFT VENTRICLE:Normal left ventricular chamber size. Abnormal leftventricular geometry with concentric remodeling (increased wall thicknessto cavity ratio). Left ventricular mass index by 2D 72 g/m2. Calculated2-D linear left ventricular ejection fraction 59%. No regional wall motionabnormalities. Grade 1/3 left ventricular diastolic dysfunction,consistent with low to normal left ventricular filling pressure at rest. RIGHT VENTRICLE:Mildly enlarged right ventricular chamber size.Mild-moderately reduced right ventricular systolic function. Unable todetect peak tricuspid regurgitation velocity for pulmonary artery systolicpressure calculation. ATRIA:Normal left atrial size. Left atrial volume index 17 ml/m2. Globalaveraged left atrial four chamber longitudinal peak systolic strain isborderline at 32.2% (normal is greater than 35%). Normal right atrialsize. CARDIAC VALVES:Trileaflet aortic valve. Thickened aortic valve. No aorticvalve regurgitation. Thickened mitral valve. Trivial mitral valveregurgitation. Pulmonary valve not well visualized. Trivial pulmonaryvalve regurgitation. Normal tricuspid valve. Trivial tricuspid valveregurgitation. OTHER ECHO FINDINGS:Normal inferior vena cava size with normal inspiratorycollapse (>50%). Normal mid ascending aorta diameter of 35 mm. Nointracardiac mass or thrombus identified. Tiny posterior pericardialeffusion. Attempts were made to optimize the echocardiographic images andtwo or more left ventricular segments were not visualized adequately toevaluate cardiac structure. The patient's current allergies andmedications have been screened. Intravenous Definity ultrasoundenhancement agent(s) administered to enhance endocardial borderdefinition. Imaging enhancement agent administered per EchocardiographyContrast Administration Protocol Reference Document [id number] Rev11/04/2021. Patient met an inclusion criterion and did not havecontraindications in screening sections. For the complete report, see the Order-Level Documents. us Thaddeus Li M.D. CV ECHO PROCEDURES Nieves rincon Result * (ABNORMAL) Lipid Panel (11/05/2024 9:32 AM CDT) Triglycerides 348(H) mg/dL 11/05/2024 10:02 AM CDT OWAT Comment: ----REFERENCE VALUE---- Normal: <150 mg/dL Borderline High: 150-199 mg/dL High: 200-499 mg/dL Very High: > or =500 mg/dL Cholesterol, Total 179 mg/dL 2024 10:02 AM CDT [facility] Comment: ----REFERENCE VALUE---- Desirable: < 200 mg/dL Borderline High: 200 - 239 mg/dL High: > or = 240 mg/dL Cholesterol, LDL, Calculated 86 mg/dL 11/05/2024 10:02 AM CDT [facility] Comment: ----REFERENCE VALUE---- Desirable: <100 mg/dL Above Desirable: 100-129 mg/dL Borderline High: 130-159 mg/dL High: 160-189 mg/dL Very High: >=190 mg/dL ----ADDITIONAL INFORMATION---- LDL cholesterol calculated using the Sofia/NIH equation. Cholesterol, HDL 36(L) >=40 mg/dL 11/06/19 10:02 AM CDT [facility] Cholesterol, Non-HDL, Calculated 143 mg/dL 11/05/2024 10:02 AM CDT [facility] Comment: ----REFERENCE VALUE---- Desirable: <130 mg/dL Above Desirable: 130-159 mg/dL Borderline High: 160-189 mg/dL High: 190-219 mg/dL Very High: > or =220 mg/dL Fasting (8 HR or more) Yes 11/05/2024 9:32 AM CDT [facility] Blood (Blood, Venous) 11/05/2024 9:32 AM CDT 11/05/2024 9:34 AM CDT Thaddeus Li M.D. LAB BLOOD ADD-ON Final Result [facility] [address] [place] [address], [facility] in [place] [address] [place] [address] documented in this encounter Visit Diagnoses Diagnosis Preoperative Examination Cardiovascular- Primary Cholecystitis Hyperlipidemia On Treatment Atherosclerotic Heart Disease Of [place] Coronary Artery Without Angina Pectoris Cholecystitis Preoperative Examination Cardiovascular Hyperlipidemia On Treatment Atherosclerotic Heart Disease Of [place] Coronary Artery Without Angina Pectoris documented in this encounter Additional Health Concerns Assessment Noted Time PHQ-9 Depression Total Score: 10 018 11:00 AM CDT documented as of this encounter Care Teams Line Driver Relationship Specialty Start Date End Date Jeff Reyes M.D. [address] [place] [address] PCP - General 03/14/24 documented as of this encounter
--- OUTSIDE RECORDS SUMMARY | 2024-11-05 09:24 | XMS_ITS | Encounter Summary ---
Author Organization [facility] Address [address] [place] [address] Care Team Providers Care Alignment Specialist Name Role Phone Jeff Reyes M.D. Primary Care Provider [phone] Encounter Details Date Type Department Care Team (Latest Contact Info) Description 11/05/2024 9:24 AM CDT - 11/05/2024 11:59 PM CDT Hospital Encounter Department of Laboratory Medicine in [place], [place] [address] [place] [phone] Thaddeus Li M.D. [address] [place] [address] Cholecystitis; Preoperative Examination Cardiovascular; Hyperlipidemia On Treatment; Atherosclerotic Heart Disease Of [place] Coronary Artery Without Angina Pectoris Discharge Disposition: Home or Self Care Social History Tobacco Use Types Packs/Day Years Used Date Smoking Tobacco: Former Cigarettes Q uit: 1977 Passive Smoke Exposure: Never Alcohol Use Standard Drinks/Week Comments Not Currently 1 (1 standard drink = 0.6 oz pur e alcohol) [facility] Utilities Answer Date Recorded In the past 12 months has e [employer], gas, oil, or water [employer] threatened to shut off services in your [...] often do you attend chur ch or mu-ism services? Never 10/18/2022 Do you belong to any clubs o r organizations such as spiritism groups, unions, fraternal or athletic groups, or [...] Answer Date Recorded PHQ-2 Score 0 02/07/2024 [facility] of Occupat ional Health - Occupational Stress [...] your living situation today? [facility] place to live 08/08/2024 Education Answer Date Recorded What is the highest level of school you have completed or the highest degree you have received? 12th grade 10/18/2022 Sex and Gender Information Value Date Recorded Sex Assigned at Male 06/26/2018 4:20 PM FORGER HELPER Legal Sex Male 3:33 AM FORGER HELPER Gender Identity Not on file Sexual Orientation [...] mg total) by mouth daily. 30 tablet 01/26/2023 furosemide (Lasix) 40 mg tablet Take [...] bedtime as needed (for sleep). 30 tablet 02/09/2024 metoprolol succinate (TOPROL-XL) 100 mg 24 [...] AM CDT Appointment Department of Radiology in [place], [place] [address], [place] [address] Pablo Vo M.D. [address] [place] [address] 02/11/2025 2:40 PM CDT Office Visit Department of Oncology in [place], [place] [address], [place] [address] Pablo Vo M.D. [address] [place] [address] documented as of this encounter Procedures Procedure Name Priority Date/Time Associated Diagnosis Comments LIPID PANEL, S Routine 11/05/2024 9:32 AM CDT Cholecystitis Preoperative Examination Cardiovascular Hyperlipidemia On Treatment Atherosclerotic Heart Disease Of [place] Coronary Artery Without Angina Pectoris documented in this encounter Results * (ABNORMAL) Lipid Panel (11/05/2024 9:32 AM [...] 9:32 AM CDT 11/05/2024 9:34 AM CDT us Thaddeus Li M.D. LAB BLOOD ADD-ON Final Result [facility] [address] [place] [address], [place] [facility] in [place] [address] [place] [address] documented in this encounter Visit Diagnoses Diagnosis Cholecystitis Preoperative Examination Cardiovascular Hyperlipidemia On Treatment Atherosclerotic Heart Disease Of [place] Coronary Artery Without Angina Pectoris documented in this encounter Additional Health Concerns Assessment Noted Time PHQ-9 Depression Total Score: 10 018 11:00 AM CDT documented as of this encounter Care Teams Alignment Specialist Relationship Specialty Start Date End Date Jeff Reyes M.D. [address] [place] [address] PCP - General 03/14/24 documented as of this encounter
--- OUTSIDE RECORDS SUMMARY | 2024-11-06 08:22 | XMS_ITS | Encounter Summary ---
Author Organization [facility] Address [address] [place] [address] Care Team Providers Care Electric Drill Operator Name Role Phone Jeff Reyes M.D. Primary Care Provider [phone] Reason for Referral * Cardiovascular-Diagnostic (Routine) - Closed Specialty Diagnoses / Procedures Referred By Contac t Referred To Contact Diagnoses Cholecystitis Preoperative Examination Cardiovascular Hyperlipidemia On Treatment Atherosclerotic Heart Disease Of [place] Coronary Artery Without Angina Pectoris Procedures Echo Stress Thaddeus Li M.D. [address] [place] [address] Phone: tel: fax: [facility] Referral ID Status Reason Start Date Expiration Date Visits Re quested Visits Authorized [id number] Closed 11/05/2024 02/05/2026 1 1 Reason for Visit * Cardiovascular-Diagnostic (Routine) - Closed Specialty Diagnoses / Procedures Referred By Jono donohue Referred To Contact Diagnoses Cholecystitis Preoperative Examination Cardiovascular Hyperlipidemia On Treatment Atherosclerotic Heart Disease Of [place] Coronary Artery Without Angina Pectoris Procedures Echo Stress Thaddeus Li M.D. [address] [place] [address] Phone: tel: fax: [facility] Referral ID Status Reason Start Date Expiration Date Visits Re quested Visits Authorized [id number] Closed 11/05/2024 02/05/2026 1 1 Encounter Details Date Type Department Care Team (Latest Contact Info) Description 11/06/2024 8:22 AM CDT - 11/06/2024 11:59 PM CDT Hospital Encounter Department of Cardiovascular Diseases in [place], [place] [address] [place] [address] Thaddeus Li M.D. [address] [place] [address] Cholecystitis; Preoperative Examination Cardiovascular; Hyperlipidemia On Treatment; Atherosclerotic Heart Disease Of [place] Coronary Artery Without Angina Pectoris Discharge Disposition: Home or Self Care Social History Tobacco Use Types Packs/Day Years Used Date Smoking Tobacco: Former Cigarettes Q uit: 1977 Passive Smoke Exposure: Never Alcohol Use Standard Drinks/Week Comments Not Currently 1 (1 standard drink = 0.6 oz pur e alcohol) [facility] [employer] Answer Date Recorded In the past 12 months has e [employer], gas, oil, or water [employer] threatened to shut off services in your [...] How often do you attend chur or orthodoxy services? Never 10/18/2022 Do you belong to any clubs o r organizations such as sabianist groups, unions, fraternal or athletic groups, or [...] Answer Date Recorded PHQ-2 Score 0 02/07/2024 [facility] of Occupat ional Health - Occupational Stress [...] your living situation today? I have a [facility] place to live 08/08/2024 Education Answer Date Recorded What is the highest level of school you have completed or the highest degree you have received? 12th grade 10/18/2022 Sex and Gender Information Value Date Recorded Sex Assigned at Male 06/26/2018 4:20 PM PULVERIZER FEEDER Legal Sex Male 3:33 AM PULVERIZER FEEDER Gender Identity Not on file Sexual Orientation [...] AM CDT Appointment Department of Radiology in [place], [place] [address], [place] [phone] Pablo Vo M.D. [address] [place] [phone] 02/11/2025 2:40 PM CDT Office Visit Department of Oncology in [place], [place] [address], [place] [phone] Pablo Vo M.D. [address] [place] [phone] documented as of this encounter Procedures Procedure Name Priority Date/Time Associated Diagnosis Comments ECHO STRESS 2D WITH COLOR, DOPPLER AND CONTRAST Routine 11/06/2024 10:03 AM CDT Cholecystitis Preoperative Examination Cardiovascular Hyperlipidemia On Treatment Atherosclerotic Heart Disease Of [place] Coronary Artery Without Angina Pectoris documented in this encounter Results * ECHO STRESS 2D [...] per Echocardiography Contrast Administration Protocol Reference Document [id number] Rev 11/04/2021. Patient met an inclusion criterion [...] administered per EchocardiographyContrast Administration Protocol Reference Document [id number] Rev11/04/2021. Patient met an inclusion criterion and did not havecontraindications in screening sections. For the complete report, see the Order-Level Documents. Thaddeus Li M.D. CV ECHO PROCEDURES Nieves rincon Result documented in this encounter Visit Diagnoses Diagnosis Cholecystitis Preoperative Examination Cardiovascular Hyperlipidemia On Treatment Atherosclerotic Heart Disease Of [place] Coronary Artery Without Angina Pectoris documented in this encounter Administered Medications Inactive Administered Medications - up to 3 most recent administrations Medication Order MAR Action Action Date Dose Rate Site atropine injection 0.25 mg 0.25 mg, intravenous, As needed, See protocol, Starting on Mon11/06/24 at 1002, Intraprocedure - Diagnostic Given 11/06/2024 9:32 AM CDT 0.25 mg Given 11/06/2024 9:31 AM CDT 0.25 mg Given 11/06/2024 9:30 AM CDT 0.25 mg DOBUTamine 1,000 mcg/mL in D5W 250 mL infusion 1-100 mg (Dobutrex) 1-100 mg, intravenous, Once, On 4/16/25 at 0915, For 1 dose, Intraprocedure - Diagnostic, Infusion rate: 5-40 mcg/kg/min - see protocol. 250 mg in 250 mL New Bag 11/06/2024 9:59 AM CDT 30.3 mg perflutren lipid microspheres injection (Definity) intravenous, Once in imaging, contrast, Starting on Mon11/06/24 at 0959, For 1 dose, Intraprocedure - Diagnostic, See protocol. Given 11/06/2024 10:01 AM CDT 37 mL sodium chloride 0.9 % injection 10 mL 10 mL, intravenous, As needed, line care, Starting on Mon11/06/24 at 0849, Intraprocedure - Diagnostic, Prior to and following infusion and between multiple consecutive infusions: sodium chloride 0.9 % injection Given 11/06/2024 10:01 AM CDT 10 mL documented in this encounter Additional Health Concerns Assessment Noted Time PHQ-9 Depression Total Score: 10 018 11:00 AM CDT documented as of this encounter Care Teams Electric Drill Operator Relationship Specialty Start Date End Date Jeff Reyes M.D. [address] [place] [phone] PCP - General 03/14/24 documented as of this encounter
--- OUTSIDE RECORDS SUMMARY | 2024-11-08 10:45 | XMS_ITS | Encounter Summary ---
Author Organization [facility] Address [address] [place] [address] Care Team Providers Care Social Worker Health Services Name Role Phone Jeff Reyes M.D. Primary Care Provider [phone] Reason for Visit * Outpatient (Routine) - Closed Specialty Diagnoses / Procedures Referred By Jono donohue Referred To Contact Cardiovascular Disease Thaddeus Li M.D. [address] [place] [address] Phone: tel: fax: [facility] Referral ID Status Reason Start Date Expiration Date Visits Re quested Visits Authorized [id number] Closed 11/05/2024 05/07/2026 1 1 Encounter Details Date Type Department Care Team (Latest Contact Info) Description 11/08/2024 10:45 AM CDT Virtual Visit Department of Cardiovascular Diseases in [place], [place] [address] [place] [phone] Thaddeus Li M.D. [address] [place] [address] Hyperlipidemia On Treatment (Primary Dx); Atherosclerotic Heart Disease Of [place] Coronary Artery Without Angina Pectoris; Preoperative Examination Cardiovascular; Embolus Pulmonary (HCC) Social History Tobacco Use Types Packs/Day Years Used Date Smoking Tobacco: Former Cigarettes Q uit: 1977 Passive Smoke Exposure: Never Alcohol Use Standard Drinks/Week Comments Not Currently 1 (1 standard drink = 0.6 oz pur e alcohol) [facility] Utilities Answer Date Recorded In the [...] often do you attend chur ch or jain services? Never 10/18/2022 Do you belong to any clubs o r organizations such as tenriism groups, unions, fraternal or athletic groups, or [...] Answer Date Recorded PHQ-2 Score 0 02/07/2024 [facility] of Occupat ional Health - Occupational [...] have a [facility] place to live 11/08/2024 Education Answer Date Recorded What is the highest level of school you have completed or the highest degree you have received? 12th grade 10/18/2022 Sex and Gender Information Value Date Recorded Sex Assigned at Male 06/26/2018 4:20 PM WELFARE SERVICE AIDE Legal Sex Male 3:33 AM WELFARE SERVICE AIDE Gender Identity Not on file Sexual Orientation Not on file documented as of this encounter Progress Notes * Thaddeus Li M.D. - 11/08/2024 10:45 AM CDT CHIEF COMPLAINT/REASON FOR VISIT Virtual followup after stress echocardiogram. HISTORY OF PRESENT ILLNESS Mr. Ramirez is a delightful 74-year-old gentleman with whom I have the pleasure of visiting virtually today in followup of his stress echocardiogram performed earlier this week. I had the pleasure of meeting him on November 05, 2024, and I would refer the interested consume my prior comprehensive note for additional details. He underwent a stress echocardiogram which was a dobutamine stress echocardiogram on November 06, 2024, with reassuring results. We see already some improvement in the right ventricular size, but minimal change in systolic function, now only mildly-enlarged compared to [id number] enlarged maicol k in July of 2024. Importantly, on his echocardiogram on the , his EF is normal with no baseline regional wall motion abnormalities and, with a good workload with dobutamine, his ejection fraction increases to 75% with no new regional wall motion abnormalities post stress. As is often the case with dobutamine, we do see some amount of a stress-induced intracavitary gradient of unclear clinical significance. The ECG was also negative for ischemia. We are unable to confidently measure the tricuspid regurgitant velocity to estimate the right ventricular systolic pressure, but his central venous pressure was normal. ASSESSMENT / PLAN #1 Preanesthesia medical evaluation [...] the time of sepsis fromcholecystitis It was a pleasure visiting back virtually with Mr. Ramirez over the phone today in followup of his stress echocardiogram, and I also appreciate the opportunity to speak with one of the nurses there [facility] named Bekah. Fortunately, that echocardiogram is negative for any stress-induced ischemia. We already see some improvement in the size of that right ventricle. He is waiting to procure a new CPAP mask, and I suspect the untreated sleep apnea in conjunction with his recent pulmonary embolism are the likely explanations for the mild RV enlargement and [id number] reduced systolic function. We also took the opportunity to review the lipid panel that we coordinated after our last appointment. His LDL is not terrible at 86, but is not quite at the target of less than 70. In light of his known nonobstructive coronary disease from his last CT coronary angiogram, I did recommend escalatinghis statin therapy at least a few days before the surgery. Specifically, I recommended we increase atorvastatin from 40 to 80 mg once daily, and he was open to that plan. I then recommended we updatea lipid panel after about 3 months to see if he has reached target, and I will be in touch with those results when available. After escalating the dose of the statin, I believe he will be medically optimized from a cardiovascular perspective to proceed with a cholecystectomy, and I would not recommend any additional cardiovascular testing or procedures before proceeding. I did ask him to keep the appointment with Dr. Vo next week to review anticoagulation strategy, and I would refer the interested consumer to my prior comprehensive note for additional details here. As he is not currently using his CPAP mask, I did encourage him to procure that new mask and informthe team in the hospital of his sleep apnea. Ultimately, in the absence of any new or concerning cardiovascular symptoms, I would recommend a followup visit with us in Cardiology in about 1 year after basic tests, but I asked him not to hesitate to reach out to me with any nonemergent questions or concerns in the interim. Thaddeus Li M.D. CT CT Job ID: [id number] CC: Roland Benson D.O. [facility] in [address] [address] - - - - Teddy Crawford documented in this encounter Plan of Treatment Upcoming Encounters Date Type Department Care Team (Late st Contact Info) Description 02/06/2025 9:00 AM CDT Appointment Department of Radiology in [place], [place] [address] [place] [address] Pablo Vo M.D. [address] [place] [place] [phone] 02/11/2025 2:40 PM CDT Office Visit Department of Oncology in [place], [place] [address] [place] [address] Pablo Vo M.D. [address] [place] [phone] Scheduled Orders Name Type Priority Associated Diagnoses Orde r Schedule Lipid Panel Lab Routine Hyperlipidemia On Treatment Atherosclerotic Heart Disease Of [place] Coronary Artery Without Angina Pectoris Expected: 02/07/2025, Expires: 02/07/2026 documented as of this encounter Visit Diagnoses Diagnosis Hyperlipidemia On Treatment- Primary Atherosclerotic Heart Disease Of [place] Coronary Artery Without Angina Pectoris Preoperative Examination Cardiovascular Embolus Pulmonary (HCC) documented in this encounter Additional Health Concerns Assessment Noted Time PHQ-9 Depression Total Score: 10 018 11:00 AM CDT documented as of this encounter Care Teams Social Worker Health Services Relationship Specialty Start Date End Date Jeff Reyes M.D. [address] [place] [phone] PCP - General 03/14/24 documented as of this encounter
--- OUTSIDE RECORDS SUMMARY | 2024-11-12 09:00 | XMS_ITS | Encounter Summary ---
Author Organization [facility] Address [address] [place] [address] Care Team Providers Care Treater Helper Name Role Phone Jeff Reyes M.D. Primary Care Provider [phone] Reason for Referral * MRI/CAT/PET Scan (Routine) - Closed Specialty Diagnoses / Procedures Referred By Jono donohue Referred To Contact Radiology Diagnoses Embolus Pulmonary (HCC) Acute Embolism And Thrombosis Of Other Specified Deep Vein Of Lower Extremity Bilateral (HCC) Procedures CT Chest Angiogram and Pulmonary Arteries with IV Contrast CT Chest Angiogram with IV Contrast Pablo Vo M.D. [address] [place] [address] Phone: tel: fax: LUIS ANGEL [facility] Referral ID Status Reason Start Date Expiration Date Visits Re quested Visits Authorized [id number] Closed 11/12/2024 02/12/2026 1 1 * Outpatient (Routine) - Authorized Specialty Diagnoses / Procedures Referred By Jono donohue Referred To Contact Oncology Pablo Vo M.D. [address] [place] [address] Phone: tel: [facility]: [facility] Region Referral ID Status Reason Start Date Expiration Date V isits Requested Visits Authorized [id number] Authorized 11/12/2024 05/14/2026 1 1 * Outpatient (Routine) - Closed Specialty Diagnoses / Procedures Referred By Jono donohue Referred To Contact Diagnoses Embolus Pulmonary (HCC) Acute Embolism And Thrombosis Of Other Specified Deep Vein Of Lower Extremity Bilateral (HCC) Procedures US Lower Extremity Veins Bilateral Pablo Vo M.D. [address] [place] [address] Phone: tel: fax: [facility] Region Referral ID Status Reason Start Date Expiration Date Visits Re quested Visits Authorized [id number] Closed 11/12/2024 02/12/2026 1 1 Reason for Visit * Reason Comments Consult * Appointment Request (Routine) - Closed Specialty Diagnoses / Procedures Referred By Jono donohue Referred To Contact Hematology Diagnoses Thrombophilia Personal History Bijan Crawford M.D. [address] [place] [phone] Phone: tel: fax: Referral ID Status Reason Start Date Expiration Date Visits Re quested Visits Authorized [id number] Closed 10/18/2024 01/18/2026 1 1 Encounter Details Date Type Department Care Team (Latest Contact Info) Description 11/12/2024 9:00 AM CDT Comprehensive Visit Department of Oncology in [place], [place] [address] [place] [address] Pabol Vo M.D. [address] [place] [phone] Embolus Pulmonary (HCC) (Primary Dx); Acute Embolism And Thrombosis Of Other Specified Deep Vein Of Lower Extremity Bilateral (HCC); Paraplegia (HCC); Multiple Sclerosis (HCC); Body Mass Index 34.0 To 34.9 Adult Social History Tobacco Use Types Packs/Day Years Used Date Smoking Tobacco: Former Cigarettes Q uit: 1977 Passive Smoke Exposure: Never Tobacco Cessation:Counseling Given: Not Answered Alcohol Use Standard Drinks/Week Comments Not Currently 1 (1 standard drink = 0.6 oz pur e alcohol) [facility] Utilities Answer Date Recorded In the [...] How often do you attend chur or voodoo services? Never 10/18/2022 Do you belong to any clubs o r organizations such as orthodoxy groups, unions, fraternal or athletic groups, or [...] you are drinking? Patient does not drink 03/28/202 3 Q3: How often do you have si x or more drinks on one occasion? Never 10/18/2022 Overall Financial Resource Strain (CARDIA) Answe r Date Recorded How hard is it for you to pa y for the very basics like food, housing, medical care, and heating? Somewhat hard 12/22/2022 PHQ-2 Answer Date Recorded PHQ-2 Score 0 02/07/2024 [facility] - Occupational Stress Questionnaire Answer Date Recorded [...] Sex Assigned at Male 06/26/2018 4:20 PM RESEARCH AND DEVELOPMENT TECHNICIAN Legal Sex Male 3:33 AM RESEARCH AND DEVELOPMENT TECHNICIAN Gender Identity Not on file Sexual Orientation Not on file documented as of this encounter Last Filed Vital Signs Vital Sign Reading Time Taken Comments Blood Pressure 127/38 11/12/2024 9:01 AM CDT Pulse 69 11/12/2024 9:01 AM CDT Temperature 36.2 C (97.1 F) 11/12/2024 9:01 AM CDT Respiratory Rate - - Oxygen Saturation 94% 11/12/2024 9:01 AM CDT Inhaled Oxygen Concentration - - Weight 115 kg (252 lb 6.8 oz) 11/12/2024 9:01 AM CDT Height - - Body Mass Index 34.23 09/15/2024 3:21 PM RESEARCH AND DEVELOPMENT TECHNICIAN documented in this encounter Consult Notes * Pablo Vo M.D. - 11/12/2024 9:00 AM CDT PRIMARY CARE PHYSICIAN Jeff Reyes M.D. REQUESTING PROVIDER Bijan Crawford M.D. [address] [place] [phone] REASON FOR VISIT Bilateral PE/DVT SUBJECTIVE HISTORY OF PRESENT ILLNESS Mr. Ramirez is a very pleasant 74 y.o. gentleman with a history of bilateral PE/DVT as follows: Oncology History Embolus Pulmonary (HCC) 08/08/2024 Initial Diagnosis Embolus Pulmonary (HCC) initially presented to [place] [facility] from [facility] with right lower quadrant pain directly transferred to [facility] for further management of bilateral PE with right heart strain, bilateral DVT and acute cholecystitis. He was managed successful with anticoagulation (initially heparin then Eliquis). Due to his PE, general surgery recommended a cholecystostomy tube which is draining well. He completed zosyn on 08/13 for cholecystitis but due to cellulitis a course of ceftriaxone was started, and he will complete 4 days of keflex upon discharge. Overall CT chest angiogram: Acute left lower lobe segmental and subsegmental, left upper lobe subsegmental, and segmental and subsegmental right upper and lower lobe pulmonary artery filling defects. Gastrointestinal: - Negative for blood in stool. Genitourinary: - Negative for blood in urine. Hematologic: - Negative for bruises or bleeds easily. Neurological: Positive for weakness in arms or legs (Chronic leg weakness attributed to multiple sclerosis and previous records fracture, uses wheelchair). REVIEW OF SYSTEMS Otherwise negative excepted as noted above. The following portions of the patient's history were reviewed and updated as appropriate: Allergiesand current medications. PAST MEDICAL HISTORY Medical History[1] PAST SURGICAL HISTORY Surgical History[2] CURRENT MEDICATIONS Medications Ordered Prior to Encounter[3] ALLERGIES/CONTRAINDICATIONS Allergies Allergen Reactions Haemophilus Influenzae Other (see comments) Vancomycin Vancomycin Infusion Reaction Red Man Syndrome HEALTH MAINTENANCE Health Maintenance Topic Date Due Colorectal Cancer Screening Never done Hepatitis C Screening Never done Hepatitis A Vaccines (1 of 2 - Risk 2-dose series) Never done Hepatitis B Vaccines (1 of 3 - Risk 3-dose series) Never done Visit: Chronic Disease, age 18+ 10/20/2023 Depression Screening (Annual PHQ-2) Never done COVID-19 Vaccine ( season) 2024 Visit: Medicare Annual Wellness 02/07/2025 Potassium Level 09/15/2025 Sodium Level 09/15/2025 Creatinine Level (Kidney Function Test) 11/12/2025 Office Visit for Blood Pressure Check / Re-check 11/12/2025 Fasting Glucose for Diabetes Screening 09/15/2027 DTaP,Tdap,and Td Vaccines (3 - Td or Tdap) 04/08/2029 Lipid (Cholesterol) Screening 11/05/2029 Fall Risk Screen (Annual) Completed RSV vaccine - (32-36 weeks) or 60+ years Completed Pneumococcal vaccine (50+ years) Completed Abdominal Aortic Aneurysm (AAA) Screen Completed Influenza Vaccine Completed Zoster Vaccines Completed IPV Vaccines Aged Out FAMILY HISTORY Family History[4] SOCIAL HISTORY Social History Socioeconomic History Marital status: Spouse name: Not on file Number of children: Not on file Years of education: Not on file Highest education level: 12th grade Occupational History Not on file Tobacco Use Smoking status: Former Current packs/day: 0.00 Types: Cigarettes Quit date: 1977 Years since quittin.3 Passive exposure: Never Smokeless tobacco: Not on [...] of Health Food Insecurity: No Food Insecurity (11/08/2024) Hunger Vital Sign Worried About Running Out of Food in the Last Year: Never true Ran Out of Food in the Last Year: Never true Transportation Needs: Unknown (11/08/2024) PRAPARE - Transportation Lack of Transportation (Medical): No Lack of Transportation (Non-Medical): Patient declined Physical Activity: Patient Declined (11/08/2024) Exercise Vital Sign Days of Exercise per Week: Patient declined Minutes of Exercise per Session: Patient declined Intimate Partner Violence: Not At Risk (08/08/2024) Humiliation, Afraid, Rape, and Kick questionnaire Fear of Current or Ex-Partner: No Emotionally Abused: No Physically Abused: No Sexually Abused: No Housing Stability: Low Risk (11/08/2024) Housing Stability Housing: Living Situation: I have a steady place to live OBJECTIVE PHYSICAL EXAMINATION BP (!) 127/38 (BP Location: Right arm, Patient Position: Sitting, Cuff Size: Regular) Pulse 69 Temp 36.2 ??C (Temporal) Wt 115 kg SpO2 94% BMI 34.23 kg/m?? Constitutional Appearance: Normal appearance. HENT Head: Normocephalic and atraumatic. Eyes General: No scleral icterus. Extraocular Movements: Extraocular movements intact. Conjunctiva/sclera: Conjunctivae normal. Pulmonary Effort: Pulmonary effort is normal. Musculoskeletal General: No swelling. Normal range of motion. Cervical back: Normal range of motion. Skin Findings: No lesion or rash. Neurological Mental Status: He is alert and oriented to person, place, and time. Motor: Weakness (Bilateral leg weakness using electric wheelchair) present. DIAGNOSTICS LABORATORY DATA: Lab Results Component Value Date WBC 9.2 09/15/2024 HGB 11.2 (L) 09/15/2024 HCT 35.8 (L) 09/15/2024 MCV 84.4 09/15/2024 PLT 194 09/15/2024 No lab exists for component: MONOSABS, EOSABS, BASOSABS Lab Results Component Value Date NA 136 09/15/2024 CL 102 09/15/2024 CREATININE 0.88 11/12/2024 EGFR >90 11/12/2024 BUN 34 (H) 09/15/2024 ANIONGAP 11 09/15/2024 GLUCOSE 173 (H) 09/15/2024 CALCIUM 9.4 09/15/2024 Lab Results Component Value Date ALT 29 09/15/2024 AST 27 09/15/2024 ALKPHOS 108 09/15/2024 BILITOT <0.2 09/15/2024 RADIOLOGICAL DATA: Radiology data reviewed. ASSESSMENT / PLAN ASSESSMENT Diagnosis Plan 1. Embolus Pulmonary (HCC) Creatinine with Estimated GFR US Lower Extremity Veins Bilateral CT Chest Angiogram with IV Contrast 2. Acute Embolism And Thrombosis Of Other Specified Deep Vein Of Lower Extremity Bilateral (HCC) Creatinine with Estimated GFR US Lower Extremity Veins Bilateral CT Chest Angiogram with IV Contrast 3. Paraplegia (HCC) 4. Multiple Sclerosis (HCC) 5. Body Mass Index 34.0 To 34.9 Adult Mr. Ramirez is a very pleasant 74 y.o. gentleman with a history of multiple sclerosis with paraparesis, neurogenic bladder/bowel, right hip fracture s/p ORIF 12/2022, CAD who was found to have acute bilateral PEs with moderate to large clot burden/RV strain and DVTs during admission in 07/2024 for sepsis secondary to acute cholecystitis status post cholecystostomy tube, initially treated with heparin transitioning to apixaban. I had an extensive discussion with Bob regarding his condition in the presence of his daughter Malika. His PE/DVT is likely multifactorial secondary to sepsis, increased BMI, limited mobility due toMS/hip fracture/surgery and while his sepsis has resolved, other contributing factors are not reversible. With this I would recommend apixaban for at least 6 months but considering extended treatmentfor lifetime. After 6-12 months may consider switching to prophylactic dose. He does not have a family history of thromboembolism or spontaneous miscarriages in with his age of presentation, he is less likely to have underlying hereditary thrombophilia. Nevertheless we discussed option of checking for it, with shared decision making, he wishes to defer that. Otherwise, plan is to eventually proceed with a cholecystectomy. If at any point surgery is considered an emergency then he may proceed with it. Otherwise, for an elective cholecystectomy, per Ninole KASANDRA this was be considered as a relatively high-risk procedure with which apixaban would need to be held for 3 days prior to surgery. We do not usually recommend enoxaparin for bridging, this may howeve r be revisited if he has a significant clot burden. I would therefore recommend repeating his CT chest angiogram in bilateral lower extremity DVT. PLAN Check baseline creatinine, proceed with CT chest angiogram//bilateral DVT ultrasound, creatinine If significant clot burden then would consider delaying surgery unless deemed emergent If there was no evidence of VTE then may proceed with surgery, 3 days between last dose of apixabanand date of surgery. Resume anticoagulation after surgery barring any complications count plan is to continue until around 07/2025, may consider switching to prophylactic dose afterwards Thank you for involving me with his care. PATIENT EDUCATION Ready to learn, no apparent learning barriers were identified; learning preferences include listening. Explained diagnosis and treatment plan; patient expressed understanding of the content. ADMINISTRATIVE BILLING I personally spent 60 minutes in care of the patient today. Time includes both non face to face andface to face patient care. 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 AntifungaL, clotrimazole, 1 % cream Apply 1 Application topically 2 (two) times a day. apixaban (Eliquis) 5 mg tablet Take 2 tablets (10 mg total) by mouth 2 (two) times a day for 3 days, THEN 1 tablet (5 mg total) 2 (two) times a day. 192 tablet [address] tablet Take 1 tablet (81 mg total) by mouth daily. 60 tablet 0 atorvastatin (Lipitor) 80 mg tablet Take 1 tablet (80 mg total) by mouth at bedtime. 90 tablet 3 bacitracin 500 unit/gram ointment Apply 1 Application topically 2 (two) times a day. baclofen (LIORESAL) 10 mg tablet Take 1 tablet (10 mg total) by mouth 2 (two) times a day. 60 tablet 0 calcium carbonate (TUMS) 500 mg (200 mg calcium) chewable tablet Chew 2 tablets (400 mg of calcium total) 2 (two) times a day. cholecalciferol 25 mcg (1,000 unit) tablet Take 1 tablet (25 mcg total) by mouth daily. diclofenac sodium (Voltaren) 1 % gel Apply 2 g topically 2 (two) times a day as needed (pain). furosemide (LASIX) 20 mg tablet Take 1 tablet (20 mg total) by mouth daily. 30 tablet 11 furosemide (Lasix) 40 mg tablet Take 40 mg by mouth every morning. GAS RELIEF 80 mg chewable tablet Chew 1 tablet (80 mg total) 4 (four) times a day as needed for flatulence. latanoprost (XALATAN) 0.005 % ophthalmic solution Administer 1 drop into both eyes daily. lisinopriL (PRINIVIL,ZESTRIL) 40 mg tablet Take 1 tablet (40 mg total) by mouth daily. 90 tablet 0 melatonin 5 mg tablet Take 1 tablet (5 mg total) by mouth at bedtime as needed (for sleep). 30 tablet 11 metoprolol succinate (TOPROL-XL) 100 mg 24 hr tablet Take 1 tablet (100 mg total) by mouth daily. Do not crush or chew. 90 tablet 0 ondansetron (ZOFRAN) 4 mg tablet Take 4 mg by mouth every 6 (six) hours as needed for nausea or vomiting. pantoprazole (PROTONIX) 40 mg EC tablet Take 1 tablet (40 mg total) by mouth 2 (two) times a day before breakfast and dinner. 180 tablet 3 polyethylene glycol (MIRALAX) 17 gram powder packet Take 1 packet (17 g total) by mouth daily as needed for constipation. Dissolve each 17 g dose in 240 mLs (8 ounces) of beverage. 30 each 1 potassium chloride 10 mEq ER capsule Take 1 capsule (10 mEq total) by mouth 2 (two) times a day with meals. senna 8.6 mg tablet Take 8.6 mg by mouth 2 (two) times a day. sennosides-docusate sodium (SENOKOT-S) 8.6-50 mg per tablet Take 1 tablet by mouth 2 (two) times a day as needed for constipation. NIFEdipine XL (PROCARDIA XL) 90 mg 24 hr tablet Take 1 tablet (90 mg total) by mouth daily. 90 tablet 0 oxyCODONE (Roxicodone) 5 mg immediate release tablet Take 5 mg by mouth every 6 (six) hours as needed for severe pain or score 7-10 of 10. (Patient not taking: Reported on 11/12/2024) No current facility-administered medications on file prior to visit. [4] Family History Problem Relation Name Age of Onset Hypertension Father father Glaucoma Father father Cancer Father father Coronary artery disease Father father Hyperlipidemia Father father Sleep apnea Father father Pulmonary embolism Neg Hx DVT - Deep vein thrombosis Neg Hx Miscarriages / Stillbirths Neg Hx documented in this encounter Plan of Treatment Upcoming Encounters Date Type Department Care Team (Late st Contact Info) Description 02/06/2025 9:00 AM CDT Appointment Department of Radiology in [place], [place] [address] [phone] Pablo Vo M.D. [address] [place] [address] 02/11/2025 2:40 PM CDT Office Visit Department of Oncology in [place], [place] [address] [phone] Pablo Vo M.D. [address] [place] [address] Scheduled Referrals Name Type Priority Associated Diagnoses Orde r Schedule Oncology office visit (clinic) Outpatient Referral Routine Expected: 02/11/2025, Expires: 02/11/2026 documented as of this encounter Results * US Lower Extremity Veins Bilateral (11/14/2024 9:43 AM CDT) Anatomical Region Laterality Modality Lower Extremity, Ultrasound RST LOS, Ultrasound ARZ LOS, Ultrasound FLA LOS Bilateral Ultrasound Impressions 11/14/2024 9:47 AM CDT Negative for acute DVT. Narrative 11/14/2024 9:47 AM CDT EXAM: US LOWER EXTREMITY VEINS BILATERAL Exam performed with color and spectral Doppler analysis. COMPARISON: 12/06/2016 FINDINGS: RIGHT: Common Femoral Vein: Negative. Profunda Femoral Vein: Negative. Femoral Vein: Negative. Popliteal Vein: Negative. Gastrocnemius Veins: Negative where seen. Soleal Veins: Not Well Seen. Posterior Tibial Veins: Negative where seen. Peroneal Veins: Negative where seen. Great Saphenous Vein: Negative where seen. Small Saphenous Vein: Not Evaluated. Popliteal Fossa: Negative. Other: n/a LEFT: Common Femoral Vein: Negative. Profunda Femoral Vein: Negative. Femoral Vein: Negative. Popliteal Vein: Negative. Gastrocnemius Veins: Negative where seen. Soleal Veins: Not Well Seen. Posterior Tibial Veins: Negative where seen. Peroneal Veins: Negative where seen. Great Saphenous Vein: Negative where seen. Small Saphenous Vein: Not Evaluated. Popliteal Fossa: Negative. Other: n/a Information on venous thrombosis and management can be found on the [employer] site. Link [email or web address] Procedure Note Codey Saavedra M.D. - 11/14/2024 EXAM: US LOWER EXTREMITY VEINS BILATERAL Exam performed with color and spectral Doppler analysis. COMPARISON: 12/06/2016 FINDINGS: RIGHT: Common Femoral Vein: Negative. Profunda Femoral Vein: Negative. Femoral Vein: Negative. Popliteal Vein: Negative. Gastrocnemius Veins: Negative where seen. Soleal Veins: Not Well Seen. Posterior Tibial Veins: Negative where seen. Peroneal Veins: Negative where seen. Great Saphenous Vein: Negative where seen. Small Saphenous Vein: Not Evaluated. Popliteal Fossa: Negative. Other: n/a LEFT: Common Femoral Vein: Negative. Profunda Femoral Vein: Negative. Femoral Vein: Negative. Popliteal Vein: Negative. Gastrocnemius Veins: Negative where seen. Soleal Veins: Not Well Seen. Posterior Tibial Veins: Negative where seen. Peroneal Veins: Negative where seen. Great Saphenous Vein: Negative where seen. Small Saphenous Vein: Not Evaluated. Popliteal Fossa: Negative. Other: n/a Information on venous thrombosis and management can be found on the[employer] site. [email or web address] IMPRESSION: Negative for acute DVT. us Pablo Vo M.D. IMG US PROCEDURES Final Result * CT Chest Angiogram and Pulmonary Arteries with IV Contrast (11/14/2024 8:59 AM CDT) Anatomical Region Laterality Modality Chest, Cardiovascular RST LO S, Thoracic ARZ LOS, Thoracic FLA LOS N/A Computed Tomography 11/14/2024 8:48 AM CDT Impressions 11/14/2024 9:12 AM CDT 1. Chronic/residual appearing right lower lobe segmental and subsegmental pulmonary emboli. Resolution of previous left upper and lower lobe segmental and subsegmental pulmonary emboli. 2. Signs of right ventricular dysfunction are absent. Narrative 11/14/2024 9:12 AM CDT EXAM: CT CHEST ANGIOGRAM AND PULMONARY ARTERIES WITH IV CONTRAST Including 3D image postprocessing with or without AI assistance. COMPARISON: CT chest 08/08/2024 FINDINGS: Pulmonary Arteries: Satisfactory quality study. Pulmonary Embolism: Positive for chronic appearing right lower lobe segmental and subsegmental pulmonary emboli pulmonary embolism (series 8 image 13 and 7 image 74). Resolution of previous left upper and lower lobe segmental and subsegmental pulmonary emboli. Signs of right ventricular dysfunction are absent. RV/LV ratio at largest diameter: less than 1:1 Interventricular septum: normal Other: Thyroid is unremarkable. Normal branch from the great vessels off of the thoracic aorta. Aorta and pulmonary artery are normal in caliber. Heart is grossly normal in size. No pericardial effusion. Lungs and Airways: Central tracheobronchial tree is clear. Evaluation of lung parenchyma is limited by motion. No appreciable focal consolidation. No pneumothorax. No suspicious pulmonary nodules. Pleural Space: No pleural fluid or thickening. Mediastinum and Chyna: No thoracic adenopathy. Osseous Structures and Chest Wall: No aggressive bone lesions. Medical Devices: None. Upper Abdomen: Visualized upper abdominal structures are within normal limits. Procedure Note Elder Davalos M.D. - 11/14/2024 EXAM: CT CHEST ANGIOGRAM AND PULMONARY ARTERIES WITH IV CONTRAST Including 3D image postprocessing with or without AI assistance. COMPARISON: CT chest 08/08/2024 FINDINGS: Pulmonary Arteries: Satisfactory quality study. Pulmonary Embolism: Positive for chronic appearing right lower lobesegmental and subsegmental pulmonary emboli pulmonary embolism (series 8image 13 and 7 image 74). Resolution of previous left upper and lower lobesegmental and subsegmental pulmonary emboli. Signs of right ventricular dysfunction are absent. RV/LV ratio at largest diameter: less than 1:1 Interventricular septum: normal Other: Thyroid is unremarkable. Normal branch from the great vessels offof the thoracic aorta. Aorta and pulmonary artery are normal in caliber.Heart is grossly normal in size. No pericardial effusion. Lungs and Airways: Central tracheobronchial tree is clear. Evaluation oflung parenchyma is limited by motion. No appreciable focal consolidation.No pneumothorax. No suspicious pulmonary nodules. Pleural Space: No pleural fluid or thickening. Mediastinum and Chyna: No thoracic adenopathy. Osseous Structures and Chest Wall: No aggressive bone lesions. Medical Devices: None. Upper Abdomen: Visualized upper abdominal structures are within normallimits. IMPRESSION: 1. Chronic/residual appearing right lower lobe segmental and subsegmentalpulmonary emboli. Resolution of previous left upper and lower lobesegmental and subsegmental pulmonary emboli. 2. Signs of right ventricular dysfunction are absent. Pablo Vo M.D. [facility] [place] PROCEDURES Final Result * Creatinine with Estimated GFR (11/12/2024 10:32 AM CDT) Creatinine 0.88 0.74 - 1.35 mg/dL 11/12/2024 11:02 AM CDT [facility] Estimated GFR (eGFR) >90 >=60 mL/min/BSA 11/12/2024 11:02 AM CDT [facility] Comment: Estimated GFR calculated using the 2020 CKD_EPI creatinine equation. Blood (Blood, Venous) 11/12/2024 10:32 AM CDT 11/12/2024 10:38 AM CDT us Pablo Vo M.D. LAB BLOOD ADD-ON Final Result [facility] [address] [place] [address], [facility] [place] [address] [place] [address] documented in this encounter Visit Diagnoses Diagnosis Embolus Pulmonary (HCC)- Primary Acute Embolism And Thrombosis Of Other Specified Deep Vein Of Lower Extremity Bilateral (HCC) Paraplegia (HCC) Multiple Sclerosis (HCC) Body Mass Index 34.0 To 34.9 Adult Embolus Pulmonary (HCC) Acute Embolism And Thrombosis Of Other Specified Deep Vein Of Lower Extremity Bilateral (HCC) Embolus Pulmonary (HCC) Acute Embolism And Thrombosis Of Other Specified Deep Vein Of Lower Extremity Bilateral (HCC) documented in this encounter Additional Health Concerns Assessment Noted Time PHQ-9 Depression Total Score: 10 018 11:00 AM CDT documented as of this encounter Care Teams Treater Helper Relationship Specialty Start Date End Date Jeff Reyes M.D. [address] [place] [phone] PCP - General 03/14/24 documented as of this encounter
--- OUTSIDE RECORDS SUMMARY | 2024-11-12 10:26 | XMS_ITS | Encounter Summary ---
Author Organization [facility] Address [address] [place] [address] Care Team Providers Care Construction Carpenter Name Role Phone Jeff Reyes M.D. Primary Care Provider [phone] Encounter Details Date Type Department Care Team (Latest Contact Info) Description 11/12/2024 10:26 AM CDT - 11/12/2024 11:59 PM CDT Hospital Encounter Department of Laboratory Medicine in [place], [place] [address] [place] [address] Pablo Vo M.D. [address] [place] [address] Embolus Pulmonary (HCC); Acute Embolism And Thrombosis Of Other Specified Deep Vein Of Lower Extremity Bilateral (HCC) Discharge Disposition: Home or Self Care Social History Tobacco Use Types Packs/Day Years Used Date Smoking Tobacco: Former Cigarettes Q uit: 1977 Passive Smoke Exposure: Never Alcohol Use Standard Drinks/Week Comments Not Currently 1 (1 standard drink = 0.6 oz pur e alcohol) [facility] Utilities Answer Date Recorded In the past 12 months has e electric, gas, oil, or water [email or web address] threatened to shut off services in your [...] often do you attend chur ch or scientologist services? Never 10/18/2022 Do you belong to any clubs o r organizations such as jain groups, unions, fraternal or athletic groups, or [...] Answer Date Recorded PHQ-2 Score 0 02/07/2024 [facility] Occupat ional Health - Occupational Stress [...] your living situation today? I have a [facility] place to live 11/08/2024 Education Answer Date Recorded What is the highest level of school you have completed or the highest degree you have received? 12th grade 10/18/2022 Sex and Gender Information Value Date Recorded Sex Assigned at Male 06/26/2018 4:20 PM SALES DEVELOPMENT CONSULTANT Legal Sex Male 3:33 AM SALES DEVELOPMENT CONSULTANT Gender Identity Not on file Sexual [...] by mouth daily. 60 tablet 11/13/2022 atorvastatin (Lipitor) 80 mg tablet Take 1 tablet (80 mg total) by mouth at bedtime. 90 tablet 3 11/08/2024 bacitracin 500 unit/gram ointment Apply 1 Application [...] a day as needed for constipation. 07/04/2018 documented as of this encounter Plan of Treatment Upcoming Encounters Date Type Department Care Team (Late st Contact Info) Description 02/06/2025 9:00 AM CDT Appointment Department of Radiology in [place], [place] [address] [place] [phone] Pablo Vo M.D. [address] [place] [phone] 02/11/2025 2:40 PM CDT Office Visit Department of Oncology in [place], [place] [address] [phone] Pablo Vo M.D. [address] [place] [phone] documented as of this encounter Procedures Procedure Name Priority Date/Time Associated Diagnosis Comments CREATININE WITH EGFR, S/P Routine 11/12/2024 10:32 AM CDT Embolus Pulmonary (HCC) Acute Embolism And Thrombosis Of Other Specified Deep Vein Of Lower Extremity Bilateral (HCC) documented in this encounter Results * Creatinine with Estimated GFR (11/12/2024 10:32 AM CDT) Creatinine 0.88 0.74 - 1.35 mg/dL 11/12/2024 11:02 AM CDT [facility] Estimated GFR (eGFR) >90 >=60 mL/min/BSA 11/12/2024 11:02 AM CDT [facility] Comment: Estimated GFR calculated using the 2020 CKD_EPI creatinine equation. Blood (Blood, Venous) 11/12/2024 10:32 AM CDT 11/12/2024 10:38 AM CDT us Pablo Vo M.D. LAB BLOOD ADD-ON Final Result [facility] [address] [place] [address], [facility] in [place] [address] [place] [address] documented in this encounter Visit Diagnoses Diagnosis Embolus Pulmonary (HCC) Acute Embolism And Thrombosis Of Other Specified Deep Vein Of Lower Extremity Bilateral (HCC) documented in this encounter Additional Health Concerns Assessment Noted Time PHQ-9 Depression Total Score: 10 018 11:00 AM CDT documented as of this encounter Care Teams Construction Carpenter Relationship Specialty Start Date End Date Jeff Reyes M.D. [address] [place] [address] PCP - General 03/14/24 documented as of this encounter
--- OUTSIDE RECORDS SUMMARY | 2024-11-14 08:23 | XMS_ITS | Encounter Summary ---
Author Organization [facility] Address [address] [place] [address] Care Team Providers Care Job Compositor Name Role Phone Jeff Reyes M.D. Primary Care Provider [phone] Reason for Referral * MRI/CAT/PET Scan (Routine) - Closed Specialty Diagnoses / Procedures Referred By Jono donohue Referred To Contact Radiology Diagnoses Embolus Pulmonary (HCC) Acute Embolism And Thrombosis Of Other Specified Deep Vein Of Lower Extremity Bilateral (HCC) Procedures CT Chest Angiogram and Pulmonary Arteries with IV Contrast CT Chest Angiogram with IV Contrast Pablo Vo M.D. [address] [place] [address] Phone: tel: fax: [facility] Region Referral ID Status Reason Start Date Expiration Date Visits Re quested Visits Authorized [id number] Closed 11/12/2024 02/12/2026 1 1 Reason for Visit * MRI/CAT/PET Scan (Routine) - Closed Specialty Diagnoses / Procedures Referred By Jono donohue Referred To Contact Radiology Diagnoses Embolus Pulmonary (HCC) Acute Embolism And Thrombosis Of Other Specified Deep Vein Of Lower Extremity Bilateral (HCC) Procedures CT Chest Angiogram and Pulmonary Arteries with IV Contrast CT Chest Angiogram with IV Contrast Pablo Vo M.D. [address] [place] [address] Phone: tel: fax: [facility] Region Referral ID Status Reason Start Date Expiration Date Visits Re quested Visits Authorized [id number] Closed 11/12/2024 02/12/2026 1 1 Encounter Details Date Type Department Care Team (Latest Contact Info) Description 11/14/2024 8:23 AM CDT - 11/14/2024 8:44 AM CDT Hospital Encounter Department of Radiology in [place], [place] [address] [place] [phone] Pablo Vo M.D. [address] [place] [address] Embolus Pulmonary (HCC); Acute Embolism And Thrombosis Of Other Specified Deep Vein Of Lower Extremity Bilateral (HCC) Discharge Disposition: Home or Self Care Social History Tobacco Use Types Packs/Day Years Used Date Smoking Tobacco: Former Cigarettes Q uit: 1977 Passive Smoke Exposure: Never Alcohol Use Standard Drinks/Week Comments Not Currently 1 (1 standard drink = 0.6 oz pur e alcohol) [facility] Utilities Answer Date Recorded In the past 12 months has e [employer], gas, oil, or water [employer] threatened to shut off services in your [...] often do you attend chur ch or anabaptist services? Never 10/18/2022 Do you belong to any clubs o r organizations such as confucianism groups, unions, fraternal or athletic groups, or [...] Answer Date Recorded PHQ-2 Score 0 02/07/2024 [facility] of Occupat ional Health - Occupational [...] your living situation today? I have a [facility] place to live 11/08/2024 Education Answer Date Recorded What is the highest level of school you have completed or the highest degree you have received? 12th grade 10/18/2022 Sex and Gender Information Value Date Recorded Sex Assigned at Male 06/26/2018 4:20 PM RN NICU Legal Sex Male 3:33 AM RN NICU Gender Identity Not on file Sexual Orientation [...] AM CDT Appointment Department of Radiology in [place], [place] [address] [place] [phone] Pablo Vo M.D. [address] [place] [phone] 02/11/2025 2:40 PM CDT Office Visit Department of Oncology in [place], [place] [address] [phone] Pablo Vo M.D. [address] [place] [phone] documented as of this encounter Procedures Procedure Name Priority Date/Time Associated Diagnosis Comments CT CHEST ANGIOGRAM AND PULMONARY ARTERIES WITH IV CONTRAST RAD - Routine (most inpatients and all outpatients) 11/14/2024 8:59 AM CDT Embolus Pulmonary (HCC) Acute Embolism And Thrombosis Of Other Specified Deep Vein Of Lower Extremity Bilateral (HCC) documented in this encounter Results * CT Chest Angiogram and Pulmonary Arteries [...] ventricular dysfunction are absent. Pablo Vo M.D. [facility] CT PROCEDURES Final Result documented in this encounter Visit Diagnoses Diagnosis Embolus Pulmonary (HCC) Acute Embolism And Thrombosis Of Other Specified Deep Vein Of Lower Extremity Bilateral (HCC) documented in this encounter Administered Medications Inactive Administered Medications - up to 3 most recent administrations Medication Order MAR Action Action Date Dose Rate Site iopromide 370 mg iodine/mL injection 100 mL (Ultravist) 100 mL, intravenous, Once in imaging, contrast, Starting on Jayla 11/14/24 at 0852, For 1 dose Given 11/14/2024 8:45 AM CDT 100 mL sodium chloride 0.9 % flush 80 mL 80 mL, intravenous, Once, On Jayla 11/14/24 at 0915, For 1 dose Given 11/14/2024 8:45 AM CDT 80 mL sodium chloride 0.9 % injection 10 mL 10 mL, intravenous, Once, On Jayla 11/14/24 at 0915, For 1 dose Given 11/14/2024 8:45 AM CDT 10 mL documented in this encounter Additional Health Concerns Assessment Noted Time PHQ-9 Depression Total Score: 10 018 11:00 AM CDT documented as of this encounter Care Teams Job Compositor Relationship Specialty Start Date End Date Jeff Reyes M.D. [address] [facility] [place] [phone] PCP - General 03/14/24 documented as of this encounter
--- OUTSIDE RECORDS SUMMARY | 2024-11-14 08:45 | XMS_ITS | Encounter Summary ---
Author Organization [facility] Address [address] [place] [address] Care Team Providers Care Filter Bed Placer Name Role Phone Jeff Reyes M.D. Primary Care Provider [phone] Reason for Referral * Outpatient (Routine) - Closed Specialty Diagnoses / Procedures Referred By Jono donohue Referred To Contact Diagnoses Embolus Pulmonary (HCC) Acute Embolism And Thrombosis Of Other Specified Deep Vein Of Lower Extremity Bilateral (HCC) Procedures US Lower Extremity Veins Bilateral Pablo Vo M.D. [address] [place] [address] Phone: tel:[phone] fax: [facility] Referral ID Status Reason Start Date Expiration Date Visits Re quested Visits Authorized [id number] Closed 11/12/2024 02/12/2026 1 1 Reason for Visit * Outpatient (Routine) - Closed Specialty Diagnoses / Procedures Referred By Jono donohue Referred To Contact Diagnoses Embolus Pulmonary (HCC) Acute Embolism And Thrombosis Of Other Specified Deep Vein Of Lower Extremity Bilateral (HCC) Procedures US Lower Extremity Veins Bilateral Pablo Vo M.D. [address] [place] [address] Phone: tel: fax: [facility] Region Referral ID Status Reason Start Date Expiration Date Visits Re quested Visits Authorized [id number] Closed 11/12/2024 02/12/2026 1 1 Encounter Details Date Type Department Care Team (Latest Contact Info) Description 11/14/2024 8:45 AM CDT - 11/14/2024 11:59 PM CDT Hospital Encounter Department of Radiology in [place], [place] [address] [place] [address] Pablo Vo M.D. [address] [place] [address] Embolus Pulmonary (HCC); Acute Embolism [...] In the past 12 months has e [employer], gas, oil, or water [employer] threatened to shut off services in your [...] often do you attend chur ch or catholic services? Never 10/18/2022 Do you belong to any clubs o r organizations such as moravian groups, unions, fraternal or athletic groups, or [...] Answer Date Recorded PHQ-2 Score 0 02/07/2024 [facility] of Occupat ional [facility] - Occupational Stress Questionnaire Answer Date [...] your living situation today? I have a [facility] place to live 11/08/2024 Education Answer Date Recorded What is the highest level of school you have completed or the highest degree you have received? 12th grade 10/18/2022 Sex and Gender Information Value Date Recorded Sex Assigned at Male 06/26/2018 4:20 PM TRIM AND BURR OPERATOR Legal Sex Male 3:33 AM TRIM AND BURR OPERATOR Gender Identity Not on file Sexual Orientation [...] AM CDT Appointment Department of Radiology in [place], [place] [address] [phone] Pablo Vo M.D. [address] [place] [phone] 02/11/2025 2:40 PM CDT Office Visit Department of Oncology in [place], [place] [address] [phone] Pablo Vo M.D. [address] [place] [phone] documented as of this encounter Procedures Procedure Name Priority Date/Time Associated Diagnosis Comments US LOWER EXTREMITY VEINS BILATERAL RAD - Routine (most inpatients and all outpatients) 11/14/2024 9:43 AM CDT Embolus Pulmonary (HCC) Acute Embolism And Thrombosis Of Other Specified Deep Vein Of Lower Extremity Bilateral (HCC) documented in this encounter Results * US Lower Extremity [...] and management can be found on the [employer] site. Link [email or web address] Procedure Note Codey Saavedra M.D. - 11/14/2024 [...] thrombosis and management can be found on the[employer] site. [email or web address]/clinical-[email or web address]/[email or web address] rehab -[email or web address] 1725 IMPRESSION: Negative for acute DVT. us Pablo Vo M.D. IM US PROCEDURES Final Result documented in this encounter Visit Diagnoses Diagnosis Embolus Pulmonary (HCC) Acute Embolism And Thrombosis Of Other Specified Deep Vein Of Lower Extremity Bilateral (HCC) documented in this encounter Additional Health Concerns Assessment Noted Time PHQ-9 Depression Total Score: 10 018 11:00 AM CDT documented as of this encounter Care Teams Filter Bed Placer Relationship Specialty Start Date End Date Jeff Reyes M.D. [address] [place] [phone] PCP - General 03/14/24 documented as of this encounter
[2024-12-12] VITALS (28 sets, daily range): BP systolic 110–136; BP diastolic 44–82; PULSE 70–79; RESP 11–24; TEMP 36.2–36.4; O2SAT 93–100; BMI 30.8; BMI 33.2
--- OUTSIDE RECORDS SUMMARY | 2024-12-12 13:19 | XMS_ITS | Clinical Summary ---
Author Organization [email or web address] [facility] Address [address] [place] [id number] Care Team Providers Care Acid Correction Hand Name Role Phone NitinBirdie RN Unavailable [phone] Karrie Singer RN Unavailable [phone] Clinic, No Pcp Or Primary Care Provider Unavaila ble Allergies Active Allergy Reactions Criticality Noted Date Comments Vancomycin vancomycin infusion reaction (cutaneous flushing/non-allergic reaction) Medium 05/26/2018 Red Man Syndrome Encounters Date Type Department Care Team Description 12/09/2024 Lab Requisition [facility] [phone] Carmenza Quiroz NP 11/29/2024 Lab Requisition [facility] [phone] Bijan Crawford MD 11/14/2024 8:30 AM CDT - 11/14/2024 11:59 PM CDT Hospital Encounter [facility] [address] [place] [address] Pablo Vo [facility] Acute pulmonary embolus (HC); 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, bi (HC) 10/28/2024 Lab Requisition [facility] [phone] Carmenza Quiroz NP from Last 3 Months [...] Description 02/05/2025 9:30 AM CDT Office Visit [facility] [address] [place] [address] Markel Schultz MD [address] [place] [address] 02/06/2025 9:00 AM CDT Appointment [facility] [address] [place] [address] Procedures Procedure Name Priority Date/Time Associated Diagnosis Comments CBC WITH AUTO DIFFERENTIAL Routine 12/10/2024 7:05 AM CDT Other [place] VITAMIN B12 Routine 12/10/2024 7:05 AM CDT Other [place] C-REACTIVE PROTEIN Routine 12/10/2024 7: 05 AM CDT Other [place] CBC WITH AUTO DIFFERENTIAL Routine 12/10/2024 7:05 AM CDT Other [place] BASIC METABOLIC PANEL Routine 12/03/2024 8:35 AM CDT Other specified postprocedural states CT CHEST PE STUDY Routine 11/14/2024 9:0 [...] Type 2 diabetes mellitus without complications (HC) from Last 3 Months Results * (ABNORMAL) CBC WITH AUTO DIFFERENTIAL (12/10/2024 7:05 AM [facility]) Only the most recent of2 resultswithin the time period is included. WHITE BLOOD COUNT 9.0 4.5 - 11.0 thou/cu mm 12/10/2024 8:00 AM [facility] RED BLOOD COUNT 3.44(L) 4.30 - 5.90 mil/cu mm 12/10/2024 8:00 AM [facility] HEMOGLOBIN 8.9(L) 13.5 - 17.5 g/dL 12/10/2024 8:00 AM [facility] HEMATOCRIT 29.6(L) 37.0 - 53.0 % 12/10/2024 8:00 AM [facility] MCV 86 80 - 100 fL 12/10/2024 8:00 AM [facility] MCH 25.9(L) 26.0 - 34.0 pg 12/10/2024 8:00 AM [facility] MCHC 30.1(L) 32.0 - 36.0 g/dL 12/10/2024 8:00 AM [facility] RDW 19.1(H) 11.5 - 15.5 % 12/10/2024 8:00 AM [facility] PLATELET COUNT 181 140 - 440 thou/cu mm 12/10/2024 8:00 AM [facility] MPV 9.5 6.5 - 11.0 fL 12/10/2024 8:00 AM [facility] % NEUT 70.6 % 12/10/2024 8:00 AM [facility] % LYMPH 16.3 % 12/10/2024 8:00 AM [facility] % MONO 11.2 % 12/10/2024 8:00 AM [facility] % EOS 1.8 % 12/10/2024 8:00 AM [facility] % BASO 0.1 % 12/10/2024 8:00 AM T [facility] ABSOLUTE NEUTROPHILS 6.3 1.7 - 7.0 thou/cu mm 12/10/2024 8:00 AM [facility] ABSOLUTE LYMPHOCYTES 1.5 0.9 - 2.9 thou/cu mm 12/10/2024 8:00 AM [facility] ABSOLUTE MONOCYTES 1.0(H) <0.9 thou/cu mm 12/10/2024 8:00 AM [facility] ABSOLUTE EOSINOPHILS 0.2 <0.5 thou/cu mm 12/10/2024 8:00 AM [facility] ABSOLUTE BASOPHILS 0.0 <0.3 thou/cu mm 12/10/2024 8:00 AM [facility] Blood BLOOD SPECIMEN / Unknown Venipuncture / Unknown 12/10/2024 7:05 AM CDT 12/10/2024 7:47 AM CDT Carmenza Quiroz NP HEMATOLOGY Final Resul t [facility] [address] [place] [address] * (ABNORMAL) C-REACTIVE PROTEIN (12/10/2024 7:05 AM CDT) C-REACTIVE PROTEIN 23.1(H) <0.5 mg/dL 12/10/2024 8:20 AM T [facility] Blood BLOOD SPECIMEN / Unknown Venipuncture / Unknown 12/10/2024 7:05 AM CDT 12/10/2024 7:47 AM CDT Carmenza Quiroz NP CHEMISTRY Final Resul t [facility] [address] [place] [address] * VITAMIN B12 (12/10/2024 7:05 AM CDT) VITAMIN B12 510 232 - 1,245 pg/mL 12/10/2024 12:14 PM CDT [facility] Blood BLOOD SPECIMEN / Unknown Venipuncture / Unknown 12/10/2024 7:05 AM CDT 12/10/2024 7:47 AM CDT Narrative [facility] - 12/10/2024 12:14 PM CDT Biotin supplements may cause clinically significant interference for this test assay. If interference is suspected, it is strongly recommended that biotin is discontinued for at least one week prior to retesting. us Carmenza Quiroz NP CHEMISTRY Final Resul t [facility] [address] [place] [address], * (ABNORMAL) BASIC METABOLIC PANEL (12/03/2024 8:35 AM CDT) Only the most recent of2 resultswithin the time period is included. Pathologist [facility] SODIUM 138 136 - 145 mmol/L 12/03/2024 9:52 AM [facility] POTASSIUM 4.9 3.5 - 5.1 mmol/L 12/03/2024 9:52 AM [facility] CHLORIDE 100 98 - 107 mmol/L 12/03/2024 9:52 AM [facility] CO2,TOTAL 23 22 - 29 mmol/L 12/03/2024 9:52 AM [facility] ANION GAP 15 5 - 18 12/03/2024 9:52 AM [facility] GLUCOSE 218(H) 70 - 99 mg/dL 12/03/2024 9:52 AM [facility] CALCIUM 9.9 8.8 - 10.4 mg/dL 12/03/2024 9:52 AM [facility] Comment: Reference ranges for this test were updated on 05/28/2024 to reflect our healthy population more accurately. Reference range changes are not retroactively applied to results, but previous results using the same methodology can be interpreted in the context of the new reference range. BUN 32(H) 8 - 23 mg/dL 12/03/2024 9:52 AM CDT [facility] CREATININE 0.87 0.70 - 1.20 mg/dL 12/03/2024 9:52 AM T [facility] BUN/CREAT RATIO 37(H) 10 - 20 9:52 AM CDT [facility] eGFR >90 >90 mL/min/1. 73m2 12/03/2024 9:52 AM T [facility] Comment:As of 2021, eG FR is calculated by the CKD-EPI creatinine equation without race adjustment. eGFR can be influenced by muscle mass, exercise, and diet. The reported eGFR is an estimation only and is only applicable if the renal function is stable. Blood BLOOD SPECIMEN / Unknown Butterfly / Unknown 12/03/2024 8:35 AM CDT 12/03/2024 9:25 AM CDT us Bijan Crawford MD CHEMISTRY Final Result [facility] [address] [place] [address] * CT CHEST PE STUDY (11/14/2024 9:06 AM CDT) Anatomical Region Laterality Modality CHEST, THORAX, HEART Computed To mography Pablo Vo [facility] CT Fin al Result * SCAN-RADIOLOGY REPORT (11/14/2024 12:00 AM CDT) Anatomical Region Laterality Modality Computed Tomogra phy us Scanner OTHER Final Result * (ABNORMAL) HEMOGLOBIN A1C (10/29/2024 7:37 AM CDT) HEMOGLOBIN A1C SCREENING 7.4(H) <=6.4 % 10/29/2024 8:39 AM CDT [facility] Blood BLOOD SPECIMEN / Unknown Butterfly / Unknown 10/29/2024 7:37 AM CDT 10/29/2024 8:31 AM CDT [facility] - 10/29/2024 8:39 AM CDT (<5.7%) Normal (5.7% to 6.4%) Indicates prediabetes (>=6.5%) Confirms diabetes Falsely low levels may be seen with: Recent Transfusion, Recent Significant Blood Loss, Hemolytic Diseases, or Falsely elevated levels may be seen with: Untreated Anemias, Splenectomy us Carmenza Quiroz PIPEFITTER CHEMISTRY Final Resul t Performing Organization Address City/State/[facility] Co de Phone Number [facility] [address] [place], [place] [phone] from Last 3 Months [place] [employer] [facility] [place] [employer] [facility] [place] Care Teams Acid Correction Hand Relationship Specialty Start Date End Date Clinic, No Pcp Or . PCP - General 07/31/23 Birdie Taveras, RN [address] [facility] [address] [place], [place] [phone] Appeals Officer [place] [facility] Registered Nurse 07/24/23 Karrie Singer RN [address] [facility] [address] [place], [place] [phone] Appeals Officer [place] [facility] Registered Nurse 07/24/23
--- OUTSIDE RECORDS SUMMARY | 2024-12-12 13:19 | XMS_ITS | Clinical Summary ---
Author Organization [facility] Address [address] [place] [address] Care Team Providers Care Brake Reliner Name Role Phone Jeff Reyes M.D. Primary Care Provider [phone] Source Comments Patient records contain information from all sites at [facility]. For routine questions regarding patient records, call [phone] during business hours, M-F 8:00 AM - 5:00 PM Central Time. Record requests for emergency care only can be directed to [phone] at any time.[facility] Allergies Active Allergy Reactions Criticality Noted Date Comments Haemophilus Influenzae Other (see comments) High Vancomycin Vancomycin Infusion Reaction Medium 05/26/2018 Red Man Syndrome Medications * This document contains information received from the source organization and may not represent a complete record from that organization. sennosides-docu sate sodium (SENOKOT-S) 8.6-50 mg per tabletIndicatio ns:Neurogenic Bowel Take 1 tablet by mouth 2 (two) times a day as needed for constipation. 8 Active latanoprost (XALATAN) 0.005 % ophthalmic solution Administer 1 drop into both eyes daily. [address] Active [address] tablet Take 1 tablet (81 mg total) by mouth daily. 60 tablet 3 Active metoprolol succinate (TOPROL-XL) 100 mg 24 hr tabletIndicatio ns:Hypertension Essential Primary Take 1 tablet (100 mg total) by mouth daily. Do not crush or chew. 90 tablet 3 Active pantoprazole (PROTONIX) 40 mg EC tablet Take 1 tablet (40 mg total) by mouth 2 (two) times a day before breakfast and dinner. 180 tablet 3 3 Active baclofen (LIORESAL) 10 mg tabletIndicatio ns:Multiple Sclerosis (HCC) Take 1 tablet (10 mg total) by mouth 2 (two) times a day. 60 tablet 3 Active lisinopriL (PRINIVIL,ZESTR IL) 40 mg tabletIndicatio ns:Hypertension Essential Primary Take 1 tablet (40 mg [...] (two) times a day. 192 tablet 5 Active potassium chloride 10 mEq ER capsule Take 1 capsule (10 mEq total) by mouth 2 (two) times a day with meals. 5 Active acetaminophen (TylenoL) 500 mg tablet Take 2 tablets (1,000 mg total) by mouth 3 (three) times a day. 5 Active diclofenac sodium (Voltaren) 1 % gelIndications: Multiple Sclerosis (HCC) Apply 2 g topically 2 (two) times a day as needed (pain). 5 Active GAS RELIEF 80 mg chewable tablet Chew 1 tablet (80 mg total) 4 (four) times a day as needed for flatulence. 5 Active cholecalciferol 25 mcg (1,000 unit) tablet Take [...] at bedtime. 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 Assessment & Plan (07/04/2018 2:56 PM SMALL BATTERY PLATE ASSEMBLER): Continue I&O catheterization as needed Multiple Sclerosis 06/03/2003 Assessment & Plan (07/04/2018 3:32 PM SMALL BATTERY PLATE ASSEMBLER): -Continue to follow with Neurology for further recommendations Resolved Problems Problem Noted Date Diagnosed Date Resolved Date Sprain Ankle Initial Right 11/08/2022 0 11/09/2022 Obesity Unspecified 03/21/2019 11/10/19 23 Urinary Tract Infection Site Not Specified 07/04/2018 11/09/2022 Overview (07/04/2018): Completed ciprofloxacin 500 mg b.i.d. for an antibiotic course of 14 days (last dose on 06/08/2018) Assessment & Plan (07/04/2018 3:31 PM SMALL BATTERY PLATE ASSEMBLER): -Patient denies any urinary symptoms today on exam. -Continue care cranberry 450 mg daily Failure Renal Acute (Acute Kidney Injury) 05/27/2018 10/19/2022 Non-ST Elevation Myocardial Infarction 05/26/2018 10/23/2019 Assessment & Plan (07/04/2018 10:14 AM SMALL BATTERY PLATE ASSEMBLER): 1. Continue aspirin 81 mg daily 2. [...] Encounters Date Type Department Care Team Description 12/03/2024 Orders Only [facility] SELF TEST [facility] [address] [place] [phone] Jeff Reyes M.D. Screening Cancer Colon 11/14/2024 8:45 AM CDT - 11/14/2024 11:59 PM CDT Hospital Encounter Department of Radiology in [place], [place] [address] [place] [phone] Pablo Vo M.D. Embolus Pulmonary (HCC); Acute Embolism And Thrombosis Of Other Specified Deep Vein Of Lower Extremity Bilateral (HCC) Discharge Disposition: Home or Self Care 11/14/2024 8:23 AM CDT - 11/14/2024 8:44 AM CDT Hospital Encounter Department of Radiology in [place], [place] [address] [place] [phone] Pablo Vo M.D. Embolus Pulmonary (HCC); Acute Embolism And Thrombosis Of Other Specified Deep Vein Of Lower Extremity Bilateral (HCC) Discharge Disposition: Home or Self Care 11/14/2024 Results Follow-Up Department of Oncology in [place], [place] [address] [place] [phone] Chest Angiogram and Pulmonary Arteries with IV Contrast 11/12/2024 10:26 AM CDT - 11/12/2024 11:59 PM CDT Hospital Encounter Department of Laboratory Medicine in [place], [place] [address] [place] [phone] Pablo Vo M.D. Embolus Pulmonary (HCC); Acute Embolism And Thrombosis Of Other Specified Deep Vein Of Lower Extremity Bilateral (HCC) Discharge Disposition: Home or Self Care 11/12/2024 9:00 AM CDT Comprehensive Visit Department of Oncology in [place], [place] [address] [place] [phone] Pablo Vo M.D. Embolus Pulmonary (HCC) (Primary Dx); Acute Embolism And Thrombosis Of Other Specified Deep Vein Of Lower Extremity Bilateral (HCC); Paraplegia (HCC); Multiple Sclerosis (HCC); Body Mass Index 34.0 To 34.9 Adult 11/12/2024 Clinical Communication Department of [facility], [facility], in [address] [place] [address] Jeff Reyes M.D. 11/08/2024 10:45 AM CDT Virtual Visit Department of Cardiovascular Diseases in [place], [place] [address] [place] [phone] Thaddeus Li M.D. Hyperlipidemia On Treatment (Primary Dx); Atherosclerotic Heart Disease Of [place] Coronary Artery Without Angina Pectoris; Preoperative Examination Cardiovascular; Embolus Pulmonary (HCC) 11/06/2024 8:22 AM CDT - 11/06/2024 11:59 PM CDT Hospital Encounter Department of Cardiovascular Diseases in [place], [place] [address] [place] [address] Thaddeus Li M.D. Cholecystitis; Preoperative Examination Cardiovascular; Hyperlipidemia On Treatment; Atherosclerotic Heart Disease Of [place] Coronary Artery Without Angina Pectoris Discharge Disposition: Home or Self Care 11/05/2024 9:24 AM CDT - 11/05/2024 11:59 PM CDT Hospital Encounter Department of Laboratory Medicine in [place], [place] [address] [place] [phone] Thaddeus Li M.D. Cholecystitis; Preoperative Examination Cardiovascular; Hyperlipidemia On Treatment; Atherosclerotic Heart Disease Of [place] Coronary Artery Without Angina Pectoris Discharge Disposition: Home or Self Care 11/05/2024 8:45 AM CDT Comprehensive Visit Department of Cardiovascular Diseases in [place], [place] [address] [phone] Thaddeus Li M.D. Preoperative Examination Cardiovascular (Primary Dx); Cholecystitis; Hyperlipidemia On Treatment; Atherosclerotic Heart Disease Of [place] Coronary Artery Without Angina Pectoris 11/05/2024 7:35 AM CDT - 11/05/2024 9:23 AM CDT Hospital Encounter Department of Laboratory Medicine in [place], [place] [address] [place] [phone] Roland Benson D.O. Cholecystitis Discharge Disposition: Home or Self Care 10/24/2024 9:12 AM CDT - 10/24/2024 10:53 AM CDT Hospital Encounter Department of Radiology in [address] [phone] Rafael Cisse P.A.-C., P.Anuel Greenfield M.D. Cholecystitis Discharge Disposition: Home or Self Care 10/23/2024 Clinical Communication Department of Radiology in [address] [phone] Anuel Nunn M.D. Blanca Tube Follow Up 10/22/2024 Clinical Communication Department of Oncology in [place], [place] [address] [place] [phone] Pablo Vo M.D. 10/01/2024 11:06 AM CDT - 10/01/2024 12:09 PM CDT Hospital Encounter Department of Radiology in [address] [phone] Anuel Nunn M.D. Cholecystitis Discharge Disposition: Home or Self Care 09/20/2024 Clinical Communication Department of General Surgery in [address] [phone] Roland Benson D.O. Communication (Regarding procedure and current medication regimen) 09/20/2024 Clinical Communication Department of Radiology in [place], [place] [address] [place] [address] Anuel Nunn M.D. 09/15/2024 11:32 AM SMALL BATTERY PLATE ASSEMBLER - 09/15/2024 6:05 PM SMALL BATTERY PLATE ASSEMBLER Emergency [facility] Emergency Department [address] [place] [address] Erlin Crocker D.O., M.S. Allergic Contact Dermatitis Due To Adhesives (Primary Dx); Cholecystitis Acute And Chronic Discharge Disposition: Home or Self Care from Last 3 Months Immunizations Immunization Administration [...] 0.6 oz pur e alcohol) [facility] Utilities Answer Date Recorded In the past 12 months has th e [place], gas, oil, or water [employer] threatened to shut off services in your [...] often do you attend chur ch or faith services? Never 10/18/2022 Do you belong to [...] Answer Date Recorded PHQ-2 Score 0 02/07/2024 [facility]at ional [facility] - [...] [facility] 11/08/2024 Education Answer Date Recorded What is the highest level of school you have completed or the highest degree you have received? 12th grade 10/18/2022 Sex and Gender Information Value Date Recorded Sex Assigned at Male 06/26/2018 4:20 PM SMALL BATTERY PLATE ASSEMBLER Legal Sex Male 3:33 AM SMALL BATTERY PLATE ASSEMBLER Gender Identity Not on file Sexual Orientation [...] Body Mass Index 34.23 09/15/2024 3:21 PM SMALL BATTERY PLATE ASSEMBLER Plan of Treatment Upcoming Encounters Date Type Department Care Team (Late st Contact Info) Description 02/06/2025 9:00 AM CDT Appointment Department of Radiology in [place], [place] [address] [phone] Pablo Vo M.D. [address] [place] [address] 02/11/2025 2:40 PM CDT Office Visit Department of Oncology in [place], [place] [address] [phone] Pablo Vo M.D. [address] [place] [phone] Health Maintenance Due Date Last Done Comments [...] exists Visit: Medicare Annual Wellness 02/07/2025 02/07/2024 Office Visit for Blood Pressure Check / Re-check 11/12/2025 11/12/2024 Creatinine Level (Kidney Function Test) 12/03/2025 12/03/2024, 11/12/2024, 10/29/2024, Additional history exists Potassium Level 12/03/2025 12/03/2024, 0 02/2025, 09/15/2024, Additional history exists Sodium Level 12/03/2025 12/03/2024, 04/0 02/2025, 09/15/2024, Additional history exists Fasting Glucose for Diabetes Screening 12/04/2027 12/03/2024, 10/29/2024, 09/15/2024, Additional history exists DTaP,Tdap,and Td Vaccines (3 [...] this topic Medical Devices Implanted Type Area Hoop Driving Machine Operator Device Identifier Shelf Expiration Date Model / Serial / Lot Scrw St 24pthrd 8.0x105 - [id number] Implanted:Qty : 1 on 12/15/2022 by Jana Don M.D. at [facility] Hardware e.g. pins/screws/ rods Right: [employer] [id number] / / Scrw Vthrd Fast 7.0x105 - [id number] Implanted:Qty : 2 on 12/15/2022 by Jana Don M.D. at [facility] Hardware e.g. pins/screws/ rods Right: [employer] [id number] / / Washr Flt 1.5x13 - [id number] Implanted:Qty : 4 on 12/15/2022 by Jana Don M.D. at [facility] Hardware e.g. pins/screws/ rods Right: [employer] [id number] / / Procedures Procedure Name Priority Date/Time [...] Hyperlipidemia On Treatment Atherosclerotic Heart Disease Of [place] Coronary Artery Without Angina Pectoris LIPID PANEL, S Routine 11/05/2024 9:32 AM CDT Cholecystitis Preoperative Examination Cardiovascular Hyperlipidemia On Treatment Atherosclerotic Heart Disease Of [place] Coronary Artery Without Angina Pectoris ECG Routine [...] ED patients; some inpatients) 09/15/2024 1:13 PM SMALL BATTERY PLATE ASSEMBLER COMPREHENSIVE METABOLIC PANEL, S/P STAT 09/15/2024 12:38 PM SMALL BATTERY PLATE ASSEMBLER CBC WITH DIFFERENTIAL, B STAT 09/15/2024 12:38 PM SMALL BATTERY PLATE ASSEMBLER from Last 3 Months Results * US [...] and management can be found on the [employer] site. Link [email or web address] Procedure Note Codey Saavedra M.D. - 11/14/2024 [...] thrombosis and management can be found on the[employer] site. [email or web address] 1725 IMPRESSION: Negative for acute DVT. [...] Vo M.D. LAB BLOOD ADD-ON Final Result [facility] [address] [place] [address], [facility] [place] [address] [place] [address] * ECHO STRESS 2D WITH COLOR, DOPPLER [...] per Echocardiography Contrast Administration Protocol Reference Document [id number] Rev 11/04/2021. Patient met an inclusion criterion [...] administered per EchocardiographyContrast Administration Protocol Reference Document [id number] Rev11/04/2021. Patient met an inclusion criterion and [...] Li M.D. LAB BLOOD ADD-ON Final Result [facility] [address], [place] [address], [facility] [facility] [place] [address] [place] [address] * ECG 12 Lead (11/05/2024 7:43 AM CDT) Ventricular Rate ECG/Min 62 BPM MUSE OK Interval 210 ms MUSE QRSD Interval 102 ms MUSE QT Interval 396 ms MUSE QTC Interval 401 ms MUSE P [place] 52 degrees MUSE R [place] -16 degrees MUSE T Wave [place] 46 degrees MUSE 11/05/2024 7:43 AM CDT [...] Patient education provided by a care steam pressure chamber operator. Patient was ready to learn with no [...] Patient education provided by a care steam pressure chamber operator. Patient was ready to learn withno apparent [...] duct is occluded on today's exam. Rafael ReynoldsAChelita, P.A. IMG IR PROCEDURES Nieves l Result * (ABNORMAL) Bacterial Culture, Aerobic + Susceptibility (10/24/2024 10:09 AM CDT) Pathologist [facility] Bacterial Culture, Aerobic + Susc KLEBSIELLA [...] MICROBIOLOGY - GENERAL OR DERABLES Final Result [facility] [address] [place] [address], [facility] [place] [address] * (ABNORMAL) Gram Stain (10/24/2024 10:09 AM CDT) Gram Stain White blood cells, Many.(A) 10/24/2024 11:22 AM CDT MKTO Gram Stain GRAM POSITIVE COCCUS RESEMBLING STREPTOCOCCUS Moderate. (A) 10/24/2024 11:22 AM CDT [facility]TO Fluid (Gallbladder) 10/24/2024 10:09 AM CDT 10/24/2024 10:36 AM CDT Comment:Specimen Source Site : Fluid us Anuel Nunn M.D. LAB MICROBIOLOGY - GENERAL OR DERABLES Final Result Performing Organization Address City/[facility]/ZIP Co de Phone Number [facility] [address] [place] [address], [facility] in [place] [address] [place] [address] * Fungal Culture, Routine (10/24/2024 10:09 AM CDT) Fungal Culture, Routine No growth after 24 days of incubation. 11/17/2024 1:01 PM CDT DT Fluid (Gallbladder) 10/24/2024 10:09 AM CDT 10/24/2024 10:05 PM CDT Comment:Specimen Source Site : Fluid Anuel Nunn M.D. LAB MICROBIOLOGY - GENERAL OR DERABLES Final Result Performing Organization Address [facility] Co de Phone Number [facility] [address] [place] [address], [facility] [address] [place] [address] * Bacterial Culture, Anaerobic + Susceptibility (10/24/2024 10:09 AM CDT) Bacterial Culture, Anaerobic No growth after 7 days of incubation. 10/31/2024 8:02 AM CDT [facility] Fluid (Gallbladder) 10/24/2024 10:09 AM CDT 10/24/2024 10:36 AM CDT Comment:Specimen Source Site : Fluid us Anuel Nunn M.D. LAB MICROBIOLOGY - GENERAL OR DERABLES Final Result Performing Organization Address City/[facility]/ZIP Co de Phone Number [facility] [address] [place] [address], [place] [facility] in [place] [address] [place] [address] * CT Abdomen Pelvis with IV Contrast (09/15/2024 1:13 PM SMALL BATTERY PLATE ASSEMBLER) Anatomical Region Laterality Modality Abdomen, Pelvis, Abdominal R ST LOS, Abdominal ARZ LOS, Abdominal FLA LOS N/A Computed Tomography 09/15/2024 1:11 PM SMALL BATTERY PLATE ASSEMBLER Impressions 09/15/2024 2:46 PM SMALL BATTERY PLATE ASSEMBLER 1. Cholecystostomy tube remains in place and gallbladder remains decompressed. 2. No findings of new pathology. Narrative 09/15/2024 2:46 PM SMALL BATTERY PLATE ASSEMBLER EXAM: CT ABDOMEN PELVIS WITH IV CONTRAST [...] remainsdecompressed. 2. No findings of new pathology. Shara Kaplan D.O. IMHeidi CT PROCEDURES Final Res ult * (ABNORMAL) CBC with Differential, Blood (09/15/2024 12:38 PM SMALL BATTERY PLATE ASSEMBLER) Hemoglobin 11.2(L) 13.2 - 16.6 g/dL 09/15/2024 12:54 PM SMALL BATTERY PLATE ASSEMBLER MKTO Hematocrit 35.8(L) 38.3 - 48.6 % 09/15/2024 12:54 PM SMALL BATTERY PLATE ASSEMBLER MKTO Erythrocytes 4.24(L) 4.35 - 5.65 x10(12)/L 09/15/2024 12:54 PM SMALL BATTERY PLATE ASSEMBLER MKTO MCV 84.4 78.2 - 97.9 fL 09/15/2024 12:54 PM SMALL BATTERY PLATE ASSEMBLER MKTO RBC Distrib Width 16.7(H) 11.8 - 14.5 % 09/15/2024 12:54 PM SMALL BATTERY PLATE ASSEMBLER MKTO Platelet Count 194 135 - 317 x10(9)/L 09/15/2024 12:54 PM SMALL BATTERY PLATE ASSEMBLER MKTO Leukocytes 9.2 3.4 - 9.6 x10(9)/L 09/15/2024 12:54 PM SMALL BATTERY PLATE ASSEMBLER MKTO Neutrophils 6.85(H) 1.56 - 6.45 x10(9)/L 09/15/2024 12:54 PM SMALL BATTERY PLATE ASSEMBLER MKTO Lymphocytes 1.47 0.95 - 3.07 x10(9)/L 09/15/2024 12:54 PM SMALL BATTERY PLATE ASSEMBLER MKTO Monocytes 0.63 0.26 - 0.81 x10(9)/L 09/15/2024 12:54 PM SMALL BATTERY PLATE ASSEMBLER MKTO Eosinophils 0.24 0.03 - 0.48 x10(9)/L 09/15/2024 12:54 PM SMALL BATTERY PLATE ASSEMBLER MKTO Basophils <0.03 0.01 - 0.08 x10(9)/L 09/15/2024 12:54 PM SMALL BATTERY PLATE ASSEMBLER MKTO Blood (Blood, Venous) 09/15/2024 12:38 PM SMALL BATTERY PLATE ASSEMBLER 09/15/2024 12:49 PM SMALL BATTERY PLATE ASSEMBLER Erlin Crocker D.O., M.S. LAB BLOOD ADD-ON Nieves l Result [facility] [address] [place] [address], [facility] MKTO [facility] [place] [address] [place] [address] * (ABNORMAL) Comprehensive Metabolic Panel (09/15/2024 12:38 PM SMALL BATTERY PLATE ASSEMBLER) Potassium, P 4.8 3.6 - 5.2 mmol/L 09/15/2024 1:09 PM SMALL BATTERY PLATE ASSEMBLER MKTO Sodium, P 136 135 - 145 mmol/L 09/15/2024 1:09 PM SMALL BATTERY PLATE ASSEMBLER MKTO Chloride, P 102 98 - 107 mmol/L 09/15/2024 1:09 PM SMALL BATTERY PLATE ASSEMBLER MKTO Bicarbonate, P 23 22 - 29 mmol/L 09/15/2024 1:09 PM SMALL BATTERY PLATE ASSEMBLER MKTO Anion Gap, P 11 7 - 15 09/15/2024 1:09 PM SMALL BATTERY PLATE ASSEMBLER MKTO BUN (Blood Urea Nitrogen), P 34(H) 8 - 24 mg/dL 09/15/2024 1:09 PM SMALL BATTERY PLATE ASSEMBLER MKTO Creatinine 0.96 0.74 - 1.35 mg/dL 09/15/2024 1:09 PM SMALL BATTERY PLATE ASSEMBLER MKTO Estimated GFR (eGFR) 83 >=60 mL/min/BS A 09/15/2024 1:09 PM SMALL BATTERY PLATE ASSEMBLER MKTO Comment: Estimated GFR calculated using the 2020 CKD_EPI creatinine equation. Calcium, Total, P 9.4 8.8 - 10.2 mg/dL 09/15/2024 1:09 PM SMALL BATTERY PLATE ASSEMBLER MKTO Glucose, P 173(H) 70 - 140 mg/dL 09/15/2024 1:09 PM SMALL BATTERY PLATE ASSEMBLER MKTO Protein, Total, P 6.4 6.3 - 7.9 g/dL 09/15/2024 1:09 PM SMALL BATTERY PLATE ASSEMBLER MKTO Albumin, P 3.4(L) 3.5 - 5.0 g/dL 09/15/2024 1:09 PM SMALL BATTERY PLATE ASSEMBLER MKTO Aspartate Aminotransferase (AST), P 27 8 - 48 U/L 09/15/2024 1:09 PM SMALL BATTERY PLATE ASSEMBLER MKTO Alkaline Phosphatase, P 108 40 - 129 U/L 09/15/2024 1:09 PM SMALL BATTERY PLATE ASSEMBLER MKTO Alanine Aminotransferase (ALT), P 29 7 - 55 U/L 09/15/2024 1:09 PM SMALL BATTERY PLATE ASSEMBLER MKTO Bilirubin, Total, P <0.2 0.0 - 1.2 mg/dL 09/15/2024 1:09 PM SMALL BATTERY PLATE ASSEMBLER MKTO Blood (Blood, Venous) 09/15/2024 12:38 PM SMALL BATTERY PLATE ASSEMBLER 09/15/2024 12:49 PM SMALL BATTERY PLATE ASSEMBLER Erlin Crocker D.O., M.S. LAB BLOOD ADD-ON Nieves l Result [facility] [address] [place] [address], [facility] MKTO [facility] [place] [address] [place] [phone] from Last 3 Months Insurance MEDICA [place] Directives For more information, please contact: [phone] Documents on File Type Date Recorded Patient Waterproof Coating Machine Tender Expl anation [place] Directives 08/08/2024 6:58 AM [...] Answer Comments Full Code: Discussed Care Teams Brake Reliner Relationship Specialty Start Date End Date Jeff Reyes M.D. [address] [place] [phone] PCP - General 03/14/24
--- OUTSIDE RECORDS SUMMARY | 2024-12-12 13:19 | XMS_ITS | Encounter Summary ---
Author Organization [facility] Address [address] [place] [address] Care Team Providers Care Shipping And Receiving Coordinator Name Role Phone Jeff Reyes M.D. Primary Care Provider [phone] Encounter Details Date Type Department Care Team (Latest Contact Info) Description 08/07/2024 Intake [facility] Social History Tobacco Use Types Packs/Day Years Used Date Smoking Tobacco: Former Cigarettes Q uit: 1977 Passive Smoke Exposure: Never Alcohol Use Standard Drinks/Week Comments Not Currently 1 (1 standard drink = 0.6 oz pur e alcohol) [facility] Utilities Answer Date Recorded In the past 12 months has e electric, gas, oil, or water [employer] threatened to shut off services in your [...] often do you attend chur ch or confucianist services? Never 10/18/2022 Do you belong to any clubs o r organizations such as yarsanism groups, unions, fraternal or athletic groups, or [...] Answer Date Recorded PHQ-2 Score 0 02/07/2024 [facility] - Occupational [...] situation today? I have [facility] place to live 08/08/2024 Education Answer Date Recorded What is the highest level of school you have completed or the highest degree you have received? 12th grade 10/18/2022 Sex and Gender Information Value Date Recorded Sex Assigned at Male 06/26/2018 4:20 PM HEAVY EQUIPMENT DIESEL MECHANIC Legal Sex Male 3:33 AM HEAVY EQUIPMENT DIESEL MECHANIC Gender Identity Not on file Sexual Orientation Not on file documented as of this encounter Plan of Treatment Upcoming Encounters Date Type Department Care Team (Late st Contact Info) Description 02/06/2025 9:00 AM CDT Appointment Department of Radiology in [place], [place] [address] [phone] Pablo Vo M.D. [address] [place] [phone] 02/11/2025 2:40 PM CDT Office Visit Department of Oncology in [place], [place] [address], [place] [address] Pablo Vo M.D. [address] [place] [phone] documented as of this encounter Visit Diagnoses Not on filedocumented in this encounter Additional Health Concerns Infection Onset Date Last Indicated Resolved Time MDR GNB 10/24/2024 10/24/2024 10/27/2024 6:33 AM CDT Assessment Noted Time PHQ-9 Depression Total Score: 10 018 11:00 AM CDT documented as of this encounter Care Teams Shipping And Receiving Coordinator Relationship Specialty Start Date End Date Jeff Reyes M.D. [facility] [place] [address] PCP - General 03/14/24 documented as of this encounter
--- OUTSIDE RECORDS SUMMARY | 2024-12-12 13:20 | XMS_ITS | Encounter Summary ---
Author Organization [facility] Address [address] [place] [address] Care Team Providers Care Launchman Name Role Phone Jeff Reyes M.D. Primary Care Provider [phone] Encounter Details Date Type Department Care Team (Late st Contact Info) Description 11/12/2024 Clinical Communication Department of Family Medicine, [facility], in [place], [place] [address] [place] [phone] Jeff Reyes M.D. [address] [place] [address] Social History Tobacco Use Types Packs/Day Years Used Date Smoking Tobacco: Former Cigarettes Q uit: 1977 Passive Smoke Exposure: Never Alcohol Use Standard Drinks/Week Comments Not Currently 1 (1 standard drink = 0.6 oz pur e alcohol) [facility] Utilities Answer Date Recorded In [...] often do you attend chur ch or holiness services? Never 10/18/2022 Do you belong to [...] Answer Date Recorded PHQ-2 Score 0 02/07/2024 [facility] [place] of Occupat ional Health - Occupational Stress [...] your living situation today? I have a [facility] place to live 11/08/2024 Education Answer Date Recorded What is the highest level of school you have completed or the highest degree you have received? 12th grade 10/18/2022 Sex and Gender Information Value Date Recorded Sex Assigned at Male 06/26/2018 4:20 PM ABRASIVE MIXER Legal Sex Male 3:33 AM ABRASIVE MIXER Gender Identity Not on file Sexual Orientation Not on file documented as of this encounter Plan of Treatment Upcoming Encounters Date Type Department Care Team (Late st Contact Info) Description 02/06/2025 9:00 AM CDT Appointment Department of Radiology in [place], [place] [address] [place] [address] Pablo Vo M.D. [address] [place] [phone] 02/11/2025 2:40 PM CDT Office Visit Department of Oncology in [place], [place] [address] [facility] [phone] Pablo Vo M.D. [address] [place] [phone] documented as of this encounter Visit Diagnoses Not on filedocumented in this encounter Additional Health Concerns Assessment Noted Time PHQ-9 Depression Total Score: 10 018 11:00 AM CDT documented as of this encounter Care Teams Launchman Relationship Specialty Start Date End Date Jeff Reyes M.D. [address] [place] [phone] PCP - General 03/14/24 documented as of this encounter
--- OUTSIDE RECORDS SUMMARY | 2024-12-12 13:21 | XMS_ITS | Encounter Summary ---
Author Organization [facility] Address [address] [place] [address] Care Team Providers Care Bottom Cager Name Role Phone Jeff Reyes M.D. Primary Care Provider [phone] Reason for Visit * Reason Onset Date Comments Blanca Tube Follow Up 10/23/2024 Encounter Details Date Type Department Care Team (Latest Contact Info) Description 10/23/2024 Clinical Communication Department of Radiology in [place], [place] [address] [place] [phone] Anuel Nunn M.D. [facility] [place] [phone] Blanca Tube Follow Up Social History Tobacco Use Types Packs/Day Years Used Date Smoking Tobacco: Former Cigarettes Q uit: 1977 Passive Smoke Exposure: Never Alcohol Use Standard Drinks/Week Comments Not Currently 1 (1 standard drink = 0.6 oz pur e alcohol) [facility] Utilities Answer Date Recorded In the [...] often do you attend chur ch or mosque services? Never 10/18/2022 Do you belong to [...] Answer Date Recorded PHQ-2 Score 0 02/07/2024 [facility] [place] of Occupat ional Health - Occupational Stress [...] your living situation today? I have a [facility] place to live 11/08/2024 Education Answer Date Recorded What is the highest level of school you have completed or the highest degree you have received? 12th grade 10/18/2022 Sex and Gender Information Value Date Recorded Sex Assigned at Male 06/26/2018 4:20 PM SUPERVISOR Legal Sex Male 3:33 AM SUPERVISOR Gender Identity Not on file Sexual Orientation Not on file documented as of this encounter Miscellaneous Notes * Telephone Encounter - Loida Villaseñor RAmparoN. - 10/23/2024 4:15 PM CDT Received return [...] Fuentes R.N. - 10/23/2024 3:08 PM CDT Air Duct Mechanic reached out to Bekah, customer care agent from [facility] regarding some concerns she had with patient's blanca tube coming out and not flushing properly. Air Duct Mechanic left a VM asking theyphone IR clinic nursing back to come up with a plan. Contact phone number left. Electronically signed by: Katiuska Fuentes R.N. 10/23/24 3:10 PM CDT documented in this encounter Plan of Treatment Upcoming Encounters Date Type Department Care Team (Late st Contact Info) Description 02/06/2025 9:00 AM CDT Appointment Department of Radiology in [place], [place] [address] [phone] Pablo Vo M.D. [address] [place] [phone] 02/11/2025 2:40 PM CDT Office Visit Department of Oncology in [place], [place] [address] [place] [phone] Pablo Vo M.D. [address] [place] [address] documented as of this encounter Visit Diagnoses Not on filedocumented in this encounter Additional Health Concerns Infection Onset Date Last Indicated Resolved Time MDR GNB 10/24/2024 10/24/2024 10/27/2024 6:3 3 AM CDT Assessment Noted Time PHQ-9 Depression Total Score: 10 018 11:00 AM CDT documented as of this encounter Care Teams Bottom Cager Relationship Specialty Start Date End Date Jeff Reyes M.D. [address] [place] [phone] PCP - General 03/14/24 documented as of this encounter
--- OUTSIDE RECORDS SUMMARY | 2024-12-12 13:21 | XMS_ITS | Encounter Summary ---
Author Organization [facility] Address [address] [place] [address] Care Team Providers Care Granite Countertop Installer Name Role Phone Jeff Reyes M.D. Primary Care Provider [phone] Encounter Details Date Type Department Care Team (Late st Contact Info) Description 12/03/2024 Orders Only [facility] [address] [place] [phone] Jeff Reyes M.D. [address] [place] [address] Screening Cancer Colon Social History Tobacco Use Types Packs/Day Years Used Date Smoking Tobacco: Former Cigarettes Q uit: 1977 Passive Smoke Exposure: Never Alcohol Use Standard Drinks/Week Comments Not Currently 1 (1 standard drink = 0.6 oz pur e alcohol) [facility] Utilities Answer Date Recorded In the past 12 months has e [employer], gas, oil, or water [employer] threatened to shut off services in your [...] your living situation today? I have a [facility] place to live 11/08/2024 Education Answer Date Recorded What is the highest level of school you have completed or the highest degree you have received? 12th grade 10/18/2022 Sex and Gender Information Value Date Recorded Sex Assigned at Male 06/26/2018 4:20 PM BRAKE LINING FINISHER ASBESTOS Legal Sex Male 3:33 AM BRAKE LINING FINISHER ASBESTOS Gender Identity Not on file Sexual Orientation Not on file documented as of this encounter Plan of Treatment Upcoming Encounters Date Type Department Care Team (Late st Contact Info) Description 02/06/2025 9:00 AM CDT Appointment Department of Radiology in [place], [place] [address] [place] [address] Pablo Vo M.D. [address] [place] [phone] 02/11/2025 2:40 PM CDT Office Visit Department of Oncology in [place], [place] [address] [place] [address] Pablo Vo M.D. [address] [place] [phone] Scheduled Orders Name Type Priority Associated Diagnoses Orde r Schedule Cologuard - Sent Out Lab Lab Routine Screening Cancer Colon Expected: 12/17/2024, Expires: 03/05/2026 documented as of this encounter Visit Diagnoses Diagnosis Screening Cancer Colon documented in this encounter Additional Health Concerns Assessment Noted Time PHQ-9 Depression Total Score: 10 018 11:00 AM CDT documented as of this encounter Care Teams Granite Countertop Installer Relationship Specialty Start Date End Date Jeff Reyes M.D. [address] [place] [phone] PCP - General 03/14/24 documented as of this encounter
--- OUTSIDE RECORDS SUMMARY | 2024-12-12 13:21 | XMS_ITS | Encounter Summary ---
Author Organization [facility] Address [address] [place] [address] Care Team Providers Care Auto Service Representative Name Role Phone Jeff Reyes M.D. Primary Care Provider [phone] Encounter Details Date Type Department Care Team (Late st Contact Info) Description 10/22/2024 Clinical Communication Department of Oncology in [place], [place] [address], [place] [address] Pablo Vo M.D. [address] [place] [address] Social History Tobacco Use Types Packs/Day Years Used Date Smoking Tobacco: Former Cigarettes Q uit: 1977 Passive Smoke Exposure: Never Alcohol Use Standard Drinks/Week Comments Not Currently 1 (1 standard drink = 0.6 oz pur e alcohol) [facility] Utilities Answer Date Recorded In the past 12 months has [employer], gas, oil, or water [employer] threatened to shut off services in your [...] often do you attend chur ch or mormonism services? Never 10/18/2022 Do you belong to [...] Answer Date Recorded PHQ-2 Score 0 02/07/2024 [facility] of Occupat ional Health - [...] exercise (like a brisk walk)? Patient declined 04 / On average, how many minutes do you [...] a [facility] place to live 11/08/2024 Education Answer Date Recorded What is the highest level of school you have completed or the highest degree you have received? 12th grade 10/18/2022 Sex and Gender Information Value Date Recorded Sex Assigned at Male 06/26/2018 4:20 PM AXLE POLISHER Legal Sex Male 3:33 AM AXLE POLISHER Gender Identity Not on file Sexual Orientation Not on file documented as of this encounter Plan of Treatment Upcoming Encounters Date Type Department Care Team (Late st Contact Info) Description 02/06/2025 9:00 AM CDT Appointment Department of Radiology in [place], [place] [address] [place] [address] Pablo Vo M.D. [address] [place] [phone] 02/11/2025 2:40 PM CDT Office Visit Department of Oncology in [place], [place] [address] [place] [address] Pablo Vo M.D. [address] [facility] [address] documented as of this encounter Visit Diagnoses Not on filedocumented in this encounter Additional Health Concerns Infection Onset Date Last Indicated Resolved Time MDR GNB 10/24/2024 10/24/2024 10/27/2024 6:33 AM CDT Assessment Noted Time PHQ-9 Depression Total Score: 10 018 11:00 AM CDT documented as of this encounter Care Teams Auto Service Representative Relationship Specialty Start Date End Date Jeff Reyes M.D. [address] [place] [phone] PCP - General 03/14/24 documented as of this encounter
--- OUTSIDE RECORDS SUMMARY | 2024-12-12 13:21 | XMS_ITS | Encounter Summary ---
Author Organization [facility] Address [address] [place] [address] Care Team Providers Care Equipment Tech Name Role Phone Jeff Reyes M.D. Primary Care Provider [phone] Reason for Referral * MRI/CAT/PET Scan (Routine) - Authorized Specialty Diagnoses / Procedures Referred By Jono donohue Referred To Contact Radiology Diagnoses Embolus Pulmonary (HCC) Procedures CT Chest Angiogram with IV Contrast Pablo Vo M.D. [address] [place] [address] Phone: tel: fax: [facility] Region Referral ID Status Reason Start Date Expiration Date V isits Requested Visits Authorized [id number] Authorized 11/14/2024 02/14/2026 1 1 Encounter Details Date Type Department Care Team (Late st Contact Info) Description 11/14/2024 Results Follow-Up Department of Oncology in [place], [place] [address] [place] [address] Pbalo Vo M.D. [address] [place] [phone] Chest Angiogram and Pulmonary Arteries with IV Contrast Social History Tobacco Use Types Packs/Day Years Used Date Smoking Tobacco: Former Cigarettes Q uit: 1977 Passive Smoke Exposure: Never Alcohol Use Standard Drinks/Week Comments Not Currently 1 (1 standard drink = 0.6 oz pur e alcohol) [facility] Utilities Answer Date Recorded In [...] How often do you attend chur or jain services? Never 10/18/2022 Do you [...] Answer Date Recorded PHQ-2 Score 0 02/07/2024 [facility] [place] of Occupat ional Health - Occupational Stress [...] Sex Assigned at Male 06/26/2018 4:20 PM POULTRY OFFAL ICER Legal Sex Male 3:33 AM POULTRY OFFAL ICER Gender Identity Not on file Sexual Orientation Not on file documented as of this encounter Plan of Treatment Upcoming Encounters Date Type Department Care Team (Late st Contact Info) Description 02/06/2025 9:00 AM CDT Appointment Department of Radiology in [place], [place] [address] [phone] Pablo Vo M.D. [address] [place] [phone] 02/11/2025 2:40 PM CDT Office Visit Department of Oncology in [place], [place] [address] [phone] Pablo Vo M.D. [address] [place] [phone] Scheduled Orders Name Type Priority Associated Diagnoses [...] documented as of this encounter Care Teams Equipment Tech Relationship Specialty Start Date End Date Jeff Reyes M.D. [address] [place] [phone] PCP - General 03/14/24 documented as of this encounter
--- NOTE | 2024-12-12 13:22 | ED.GENADULT ---
HPI - General Adult General Date Seen: 12/12/24 Chief complaint: Weakness Stated complaint: Weakness, possible sepsis Time Seen by Provider: 12/12/24 13:21 History of Present Illness HPI narrative: 74-year-old male with a very complicated medical history which includes multiple sclerosis causing inability to transfer and paraplegia, bed sores (follows with the [facility]) history of DVT and pulmonary embolism, cholecystostomy tube placement ([facility]) for history of cholecystitis in July 2024, long-term indwelling Eason catheter with frequent UTIs (most recent UTI was in October 2024). He is brought to the ER today by EMS from his [facility] ([facility]) because his [facility] staff noted today that he seemed more lethargic than normal and confused and they are concerned he is probably septic. He apparently had an appointment at 3:00 p.m. today with the [place] [facility] for his sacral ulcers but is not able to go due to his lethargy. His [facility] staff mention concern for possible infection of the sacral ulcers. He was hemodynamically stable per EMS but is confused and slow to respond to questions. They note no focal deficits. History is limited from the patient. He knows his name and knows that he is at the hospital but does not know where he is. He does not know what date is. He is not really able to answer other questions. He does answer yes or no when I palpate his body to tell me is having tenderness or pain there. History from medical record... I saw him here in the ER on 11/16/2024. During that visit: WBC 7.5, hemoglobin 11.0, platelet count 197. 89% neutrophils. Sodium 134, potassium 4.4, chloride 100, bicarb 25, BUN 21, creatinine 1.0, glucose 274. Lactic acid was 1.5. AST 33, ALT 32, lipase 36. Total bilirubin 0.7. COVID/influenza PCR negative. Abdominal CT scan showed no acute findings. Decompressed gallbladder with percutaneous cholecystostomy tube in place. Mild pericholecystic fat stranding. There was also an 8.2 cm lobulated lesion that appeared to be fat density in the left paramidline posterior pelvis. He was hospitalized from 11/10 6-11/20. While in the hospital general surgery on [facility] cultures left buttock wound which appeared to be the source of infection. He also had Gram-negative rods in the cholecystostomy fluid. He grew Gram-negative rods from his sacral wound. He was taken to the OR for debridement. Ultimately was discharged on a 10 day course of oral Augmentin and Bactrim. Infectious Disease phone consult thought that urinalysis and cholecystostomy cultures were probably colonized rather than active infections. Related Data Home Medications ?Medication ?Instructions ?Recorded ?Confirmed acetaminophen 500 mg tablet 1,000 mg PO TID 08/07/24 12/12/24 aspirin 81 mg tablet,delayed 81 mg PO DAILY 08/07/24 12/12/24 release calcium carbonate (Zachary-Gest 400 mg PO BID 08/07/24 12/12/24 Antacid) cholecalciferol (vitamin D3) 25 25 mcg PO DAILY 08/07/24 12/12/24 mcg (1,000 unit) tablet (Vitamin D3) furosemide 40 mg tablet 40 mg PO DAILY 08/07/24 12/12/24 lisinopril 40 mg tablet 40 mg PO DAILY 08/07/24 12/12/24 metoprolol succinate 100 mg 100 mg PO DAILY 08/07/24 12/12/24 tablet,extended release 24 hr nifedipine 90 mg tablet,extended 90 mg PO DAILY 08/07/24 12/12/24 release 24 hr pantoprazole 40 mg tablet,delayed 40 mg PO BID 08/07/24 12/12/24 release polyethylene glycol 3350 17 17 g PO DAILY 08/07/24 12/12/24 gram/dose oral powder potassium chloride 10 mEq 10 meq PO BIDWM 08/07/24 12/12/24 capsule,extended release apixaban 5 mg tablet (Eliquis) 5 mg PO BID 11/16/24 12/12/24 atorvastatin 80 mg tablet 80 mg PO HS 11/16/24 12/12/24 bacitracin 500 unit/gram topical 1 applic topical BID 11/16/24 12/12/24 ointment baclofen 10 mg tablet 10 mg PO BID 11/16/24 12/12/24 bisacodyl 10 mg rectal suppository 10 mg NM DAILY PRN 11/16/24 12/12/24 diclofenac sodium 1 % topical gel 2 g topical BID PRN 11/16/24 12/12/24 furosemide 20 mg tablet 20 mg PO QPM 11/16/24 12/12/24 latanoprost 0.005 % eye drops 1 drp ophthalmic (eye) HS 11/16/24 12/12/24 ondansetron HCl 4 mg tablet 4 mg PO Q6H PRN 11/16/24 12/12/24 sennosides 8.6 mg-docusate sodium 2 tab-cap PO DAILY 11/16/24 12/12/24 50 mg tablet (Senna Plus) carbamide peroxide 6.5 % ear drops 5 drp otic (ear) Q7D 11/17/24 12/12/24 (Ear Wax Removal Kit) clotrimazole 1 % topical cream 1 applic topical BID 12/12/24 12/12/24 Previous Rx's ?Medication ?Instructions ?Recorded allopurinol 100 mg tablet 100 mg PO DAILY #30 tabs 11/19/24 ferrous sulfate 325 mg (65 mg 325 mg PO Q48H #15 tabs 11/19/24 iron) tablet Allergies Allergy/AdvReac Type Severity Reaction Status Date / Time Haemophilus B polysaccharide Allergy Unknown Verified 12/12/24 13:32 conj w vancomycin Allergy Unknown Verified 12/12/24 13:32 [facility] Medical History (Updated 12/12/24 @ 16:31 by Elder Matthew MD) Neurogenic bowel ?K59.2 - Neurogenic bowel, not elsewhere classified (ICD-10) Hyperuricemia ?E79.0 - Hyperuricemia without signs of inflammatory arthritis and tophaceous disease (ICD-10) Elevated blood sugar ?R73.9 - Hyperglycemia, unspecified (ICD-10) Hyperlipidemia ?E78.5 - Hyperlipidemia, unspecified (ICD-10) Hypertension ?I10 - Essential (primary) hypertension (ICD-10) Coronary artery disease ?I25.10 - Atherosclerotic heart disease of [place] coronary artery without angina pectoris (ICD-10) Fracture, intertrochanteric, right femur ?S72.141A - Displaced intertrochanteric fracture of right femur, initial encounter for closed fracture (ICD-10) Sleep apnea ?G47.30 - Sleep apnea, unspecified (ICD-10) Eason catheter in place ?Z97.8 - Presence of other specified devices (ICD-10) Neurogenic bladder ?N31.9 - Neuromuscular dysfunction of bladder, unspecified (ICD-10) Obesity ?E66.9 - Obesity, unspecified (ICD-10) Multiple sclerosis ?G35 - Multiple sclerosis (ICD-10) Surgical History (Updated 11/24/24 @ 00:00 by Background Daemon) H/O insertion of cholecystostomy tube ?Z98.890 - Other specified postprocedural states (ICD-10) Family History (Updated 11/16/24 @ 16:58 by Rodolfo James MD) Father Coronary artery disease High blood pressure High cholesterol Sleep apnea Social History (Updated 11/16/24 @ 16:59 by Rodolfo James MD) Narrative: Resident of [facility]. Daughter Malika is healthcare power of family law attorney. Code status is DNR. Remote history of smoking What is your current living situation?: I presently have a place to live Problems where you live: no known problems Problems where you live details: na In the past 12 months, utilities in danger of being shut off: no In past 12 months, lack of transportation kept you from medical appts, meetings, work, or getting things needed for daily living: no In the past 12 mos, have been you worried that your food would run out before you had money to buy more?: often true In the past 12 mos, the food you bought just didn't last and you didn't have money to buy more?: often true Highest level of school completed/degree received: 12th grade, no diploma Smoking Status: Former smoker What tobacco products do you use: cigarettes Smoking quit date/years: <= 15 years ago Do you use any of these nicotine containing products: None Second hand tobacco smoke exposure: No How often do you have a drink containing alcohol: never AUDIT-C Alcohol total score: 0 Non-prescribed substance use: denies use Caffeine: Yes How often does anyone, including family, friends and others, physically hurt you: never How often does anyone, including family, friends and others, insult or talk down to you: never How often does anyone, including family, friends and others, threaten you with harm: never How often does anyone, including family, friends and others, scream or curse at you: never service: No Health Related Social Needs: food insecurity (Z59.41) Exam Narrative: Exam Narrative: Constitutional: Appears well-developed and well-nourished. He is awake and looks at me but seems a little bit distracted/confused. Very slow to respond to verbal questions. Follows simple commands appropriately. Disoriented to date. HENT: Head: Atraumatic. Nose: Nose normal. Mouth/Throat: Oral mucosa is clear but somewhat dry, not desiccated or cracked.. no trismus. Visualized upper pharynx normal. Eyes: Conjunctivae normal. EOM normal. Pupils equal, round, and reactive to light. No scleral icterus. Neck: Normal range of motion. Neck supple. No tracheal deviation present. Cardiovascular: Tachycardic, regular rhythm. No gallop. No friction rub. No murmur heard. Symmetric radial artery pulses Pulmonary/Chest: Unable to sit up for posterior lung exam. Effort normal. No stridor. No respiratory distress. No wheezes. No rales. No rhonchi . No tenderness. Abdominal: Soft. No distension. No mass. Right upper quadrant and epigastric tenderness. No rebound. No guarding. Cholecystostomy tube present in the right upper quadrant that does have some brownish cholecystostomy drainage in the tube and bag. : Eason catheter in place with cloudy yellow white urine in the tubing. There is also some urine draining through the urethra around the outside of the Eason catheter tubing. Musculoskeletal: RUE: Normal range of motion. No tenderness. No deformity LUE: Normal range of motion. No tenderness. No deformity RLE: Normal range of motion. No edema. No tenderness. No deformity LLE: Normal range of motion. No edema. No tenderness. No deformity Neurological: Alert and oriented to person, and knows he is at a hospital but cannot say which 1. Does not know the date. Generalized weakness. Chronic lower extremity weakness due to MS is apparently baseline. Has acute on chronic generalized weakness and is Too weak to sit up unassisted. CN II-VII intact. No sensory deficit. GCS eye subscore is 4. GCS verbal subscore is 5. GCS motor subscore is 6. Normal coordination . Short-term memory seems a little bit clouded and he is a poor historian. Very slow cognition. Skin: Skin of his face and extremities is warm and dry. No rash noted. No pallor. Normal capillary refill. Evaluation of his buttocks reveals that he has several areas of skin breakdown. High on the left buttock on the back of the iliac bone there is a superficial area of skin breakdown little bit of darkness of the skin but no tunneling. In the midline of the gluteal cleft there is also another area of superficial skin breakdown. There is some wrong macerated slightly bloody scan in the gluteal cleft just posterior to the rectum. There is a small amount of brown stool at the rectal opening which I removed carefully using wipes. On the left distal buttock/proximal thigh there is a fairly large roughly 6 x 8 cm irregular deep tunneling ulcer. The upper border this is dark brown/black with some loaded wrist discharge concerning for infection. No definite palpable crepitus. No definite palpable fluctuance. Psychiatric: Flat affect. Limited. Const: Vital Signs, click to edit/add: Vital Signs - 24 hr 12/12/24 13:32 12/12/24 13:42 12/12/24 13:43 Temperature 97.1 F L Pulse Rate 70 70 Pulse Rate [Pulse Oximeter] 74 Respiratory Rate Blood Pressure 118/63 Blood Pressure [Ri ght Upper Arm] 118/63 Pulse Oximetry 95 96 95 Oxygen Delivery Me thod Room Air 12/12/24 13:45 12/12/24 14:00 12/12/24 14:15 Temperature Pulse Rate 71 73 72 Pulse Rate [Pulse Oximeter] Respiratory Rate Blood Pressure Blood Pressure [Ri ght Upper Arm] Pulse Oximetry 96 97 98 Oxygen Delivery Me thod 12/12/24 14:58 12/12/24 15:00 12/12/24 15:01 Temperature Pulse Rate 71 70 71 Pulse Rate [Pulse Oximeter] Respiratory Rate 16 18 Blood Pressure 123/51 L 114/54 L Blood Pressure [Ri ght Upper Arm] Pulse Oximetry 96 95 95 Oxygen Delivery Me thod 12/12/24 15:02 12/12/24 15:15 12/12/24 15:30 Temperature Pulse Rate 71 71 72 Pulse Rate [Pulse Oximeter] Respiratory Rate 21 18 14 Blood Pressure Blood Pressure [Ri ght Upper Arm] Pulse Oximetry 96 95 95 Oxygen Delivery Me thod 12/12/24 15:32 Temperature Pulse Rate 74 Pulse Rate [Pulse Oximeter] Respiratory Rate 16 Blood Pressure 124/55 L Blood Pressure [Ri ght Upper Arm] Pulse Oximetry 96 Oxygen Delivery Me thod Course Course ED Course: Patient seen upon EMS arrival. Since the ER was full he was initially brought to ER hallway bed. I took report from paramedics and did the initial bedside assessment. As soon as we were able we got him into ER room 2 or more proper and thorough exam could be done. Reevaluation(s) Reevaluation #1: Recheck-after initial evaluation nurses were able to get some wound dressing material. Nursing staff and I rolled the patient into his right lateral decubitus position for inspection of the sacral ulcers. Of note he seems more alert now than he was when he 1st arrived. Blood pressure and pulse remain stable. He does have a fairly large left buttock decubitus ulcer with tunneling and brown material concerning for infection. Reevaluation #2: Recheck-IV established. Patient is being sent for CT Reevaluation #3: Recheck-discussed with Dr. Pena, radiology. Dr. Pena notes that there is a fair amount of soft tissue inflammation in the left buttock concerning for cellulitis there but the CT scan does not go quite far enough down the leg to see the actual tunneling ulcer. There is also a few bubbles of gas in the soft tissue which called will suspects are related to the presence of the deep tunneling ulcer rather than active necrotizing gas-forming infection. However he recommends bedside evaluation by surgery and clinical correlation. Radiology also notes that the patient's Eason catheter is malposition with the balloon inflated in the patient's prostate. Radiology also notes that the patient's cholecystostomy tube is appropriately positioned, his gallbladder is decompressed, and there is no signs of active infection in the gallbladder fossa. After being called by Radiology I responded to the patient's bedside. I encounter the nurse in the hallway decided side the patient's room. She reported to me that she had just removed the pre-existing Eason as I had ordered prior to CT and with difficulty was able to place a new Eason catheter. She notes that there was a small amount of blood tinged urine. I recheck the Eason catheter myself. It appears to be in good position externally. I did a bedside ultrasound to see the balloon catheter inflated within the lumen of the bladder. The new catheter does appear to be appropriately position. It did drain a small amount of blood tinged urine around the catheter but subsequently is draining cloudy yellow/white urine through the catheter tubing. No signs of ongoing hematuria, clots, or urinary obstruction. I also called to discussed with our surgeon, Dr. Bailey. She very graciously came directly to the patient's bedside. She and I performed a bedside exam together. She feels that left buttock decubitus ulcer is infected and needs to go to the OR for debridement. However ultimately she feels that since the patient is hemodynamically stable, she wants to hold off on debridement today and delayed till tomorrow because he is on Eliquis and bleeding would be significantly worse if procedure done today. We discussed potential antibiotics including clindamycin, ertapenem, Zosyn, vanc. Patient has a listed vancomycin allergy. She requested, and I obtained, a wound culture from the infected ulcer. Subsequently discussed with our hospitalist, Dr. Tabares. She made consult with Infectious Disease. Per that conversation Dr. Tabares requests that we would hold all IV antibiotics. She will arrange appropriate antibiotic therapy once the patient arrives to the medical floor. I canceled my orders for the IV clindamycin and ertapenem. Patient's son arrived to the bedside. Discussed plan of care with the patient and his son. They are in agreement. Of note the patient seems much more alert and cogent and now than he was when he arrived. He remains hemodynamically stable Vital Signs Vital signs: Initial Vital Signs Temperature 97.1 F L 12/12/24 13:32 Temperature Source Temporal Artery Scan 12/12/24 13:32 Pulse Rate 74 12/12/24 13:32 Blood Pressure 118/63 12/12/24 13:32 Blood Pressure Mean 81 12/12/24 13:32 Blood Pressure Position Semi-Fowlers 12/12/24 13:32 Pulse Oximetry 95 12/12/24 13:32 Oxygen Delivery Method Room Air 12/12/24 13:32 Vital Signs Temperature 97.1 F L 12/12/24 13:32 Pulse Rate 74 12/12/24 13:32 Blood Pressure 118/63 12/12/24 13:32 Pulse Oximetry 95 12/12/24 13:32 Oxygen Delivery Method Room Air 12/12/24 13:32 Temperature 97.1 F L 12/12/24 13:32 Pulse Rate 74 12/12/24 15:32 Respiratory Rate 16 12/12/24 15:32 Blood Pressure 124/55 L 12/12/24 15:32 Pulse Oximetry 96 12/12/24 15:32 Oxygen Delivery Method Room Air 12/12/24 13:32 Medications Administered Medications: Discontinued Medications Generic Name Dose Route Start Last Admin Trade Name Fior PRN Reason Stop Dose Admin Piperacillin Sod/Tazobactam 100 mls @ 200 mls/hr 12/12/24 13:35 12/12/24 15:41 Sod 4.5 gm/ Sodium Chloride IVPB 12/12/24 13:36 Not Given ONCE ONE Sodium Chloride 1,000 mls @ 1,000 mls/hr 12/12/24 13:45 12/12/24 15:42 0.9 % Sodium Chloride 1000 Ml IV 12/12/24 14:44 1,000 mls/hr .Q1H BERONICA Administration Medical Decision Making MDM Narrative Medical decision making narrative: 74-year-old gentleman with a complex presentation to the ER. He was sent to the ER today because his [facility] staff felt that he was more disoriented and lethargic than normal. Concern is for possible infection or possibly sepsis. Laboratory workup was undertaken to look for causes of altered mental status. Sodium, kidney function, blood sugar are normal. No clear evidence for and metabolic or electrolyte or endocrine cause of his altered mental status. Concern here is for potential infections. CT scan of his abdomen/pelvis does show that the cholecystostomy tube is in appropriate position and there is no evidence for active inflammation around the gallbladder. LFTs and lipase are normal He does have a chronic indwelling Eason. It was malposition and but replaced into appropriate position here in the ER. Catheterized urine sample from the new Eason does show abnormalities with pyuria and hematuria. Unclear if this represents chronic colonization of his bladder or truly an active infection. Clinical exam does reveal evidence for infection of his deep tunneling decubitus ulcer on the left buttock. No clear evidence for necrotizing fasciitis at this time. LRNEC score is 3 which is low risk. Bedside consult with General surgery and she feels that this is not neck fasc. Patient will be brought into the hospital plans for debridement tomorrow. Ultimately, antibiotics will be determined by admitting hospitalist. Patient is graciously accepted for admission by Dr. Tabares. Please see hospitalist notes for further details about admission status and further workup. Lab Data Labs: Lab Results 12/12/24 12/12/24 12/12/24 Range/Units 13:36 14:30 15:26 WBC 8.32 (4.50-11.00) K/uL RBC 4.18 L (4.30-5.90) m/uL Hgb 10.7 L (13.5-17.5) gm/dL Hct 35.3 L (37.0-53.0) % MCV 84 (80-100) fL MCH 26 (26-34) pg MCHC 30 L (32-36) gm/dL RDW Coeff of Rey 18.5 H (11.5-15.5) % Plt Count 216 (140-440) K/uL Neut % (Auto) 72.0 (42.0-72.0) % Lymph % (Auto) 17.1 L (20-44) % George % (Auto) 7.7 (0.0-11.0) % Eos % (Auto) 2.5 (0.0-7.0) % Baso % (Auto) 0.1 (0.0-3.0) % Neut # (Auto) 5.99 (1.7-7.0) K/uL Lymph # (Auto) 1.40 (0.90-2.90) K/uL George # (Auto) 0.60 (0.00-0.90) K/UL Eos # (Auto) 0.21 (0.00-0.50) K/uL Baso # (Auto) 0.01 (0.00-0.30) K/uL Abs Immat Gran (auto) 0.05 (0.00-0.30) K/uL Imm/Tot Granulo (auto) 0.6 % Sodium 137 (135-149) mmol/L Potassium 4.4 (3.6-5.1) mmol/L Chloride 102 (96-114) mmol/L Carbon Dioxide 28 (20-32) mmol/L Anion Gap 7 (7-15) mEq/L BUN 43 H (7-30) mg/dL Creatinine 0.9 (0.5-1.5) mg/dL Estimated Creat Clear 75.35 Estimated GFR 90 ml/min Glucose 187 H (60-115) mg/dL Lactate 2.0 H (0.5-1.9) mmol/L Calcium 9.2 (8.4-10.6) mg/dL Total Bilirubin 0.7 (0.1-1.5) mg/dL AST 33 (12-35) U/L ALT 32 (4-50) U/L Alkaline Phosphatase 90 (40-150) U/L Total Protein 7.3 (6.0-8.3) g/dL Albumin 3.6 (3.3-5.0) g/dL Lipase 60 (23-300) U/L Urine Color Yellow (Yellow) Urine Appearance Cloudy A (Clear) Urine pH 6.0 (5.0-8.5) Ur Specific [place] <= 1.005 (1.000-1.030) Urine Protein 1+ A (Negative) Urine Glucose (UA) Negative (Negative) Urine Ketones Negative (Negative) Urine Blood 3+ A (Negative) Urine Nitrite Negative (Negative) Urine Bilirubin Negative (Negative) Urine Urobilinogen 0.2 (0.2-1.0) Ur Leukocyte Esterase 3+ A (Negative) Urine RBC 10-25 A (0-2) Urine WBC 50-100 A (0-5) Ur Squamous Epith Cells None (None-Few) Urine Bacteria Many A (None) SARS-CoV-2 (PCR) Negative SARS-CoV-2 (Negative) Influenza Type A (PCR) Negative PCR FLU A (Negative) Influenza Type B (PCR) Negative PCR FLU B (Negative) ECG Data Attestation: I personally reviewed and interpreted this ECG as follows: Interpretation: Normal sinus rhythm with first-degree AV block Rate: 70 NM: 224 QRS axis: Normal axis. ST segment/T wave: No acute ST segment elevation or depression. QTc: 423 Discharge Plan Discharge Clinical Impression: Decubitus ulcer, Cellulitis, Acute alteration in mental status, Eason catheter problem Patient Disposition: Admitted As Observation
--- OUTSIDE RECORDS SUMMARY | 2024-12-12 13:22 | XMS_ITS | Patient Health Record ---
Author Organization [facility] Address [address] [place] [address] Care Team Providers Care Twister Tender Name Role Phone Rubén Paez MD Primary Care Provider Melody Michael [place] Unavailable [phone] Reason For Referral No Information Social History Tobacco Use: Social History Observation Description Date Details (start date - stop date) Former Smoker NA - NA Tobacco Use/Smoking Question Answer Notes Are you a former smoker Section Notes: FAMILY HISTORY: HISTORY OF FAMILY PSYCH: Problems Problem Type SNOMED Code ICD Code Onset Dates Problem Status W/U Status Risk Notes Problem Tinea unguium (464163888) Tinea unguium (B35.1) Active confirmed Problem 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 (102201050) 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 confirmed Problem 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 Problem Pressure injury of right buttock stage III (disorder) (70716494972546 ) Pressure ulcer of right buttock, stage 3 (L89.313) Active confirmed Problem Pressure injury of right heel stage IV (disorder) (80956750195709 ) Pressure ulcer of right heel, stage 4 (L89.614) Active confirmed Plan Of Treatment No Information Insurance Providers Payer Name Payer Address Payer Phone Subscriber Number Group Number Insured Name Patient Relationship to Insured Coverage Start Date Coverage End Date [employer] [address] (Government Programs) [address] [address] [place], [place] [id number] Ren Ramirez Self - patient is the insured 7 [facility] Government Services/Med icare [address] [place] [address] [id number] Ren Ramirez Self - patient is the insured 3
--- NOTE | 2024-12-12 13:35 | CRLHL7_ITS ---
For Patients: As a result of the Century Cures Act, medical imaging exams and procedure reports are released immediately into your electronic medical record. You may view this report before your referring provider. If you have questions, please contact your health care provider. INDICATION: Sepsis and right upper quadrant pain. Cholecystostomy tube. TECHNIQUE: Axial images were obtained from the diaphragm to the pubic symphysis. Reformats were obtained in the coronal and sagittal plane. IV Contrast: 118 cc Isovue 370 Oral Contrast: None COMPARISON: Abdomen and pelvis CT 11/16/2024 FINDINGS: Lower chest: Bibasilar discoid atelectasis. Liver: Diffusely decreased density of the liver with hypodense hepatic lesions, largest at the dome of the liver measuring 6.4 centimeters with some internal high density, similar to the prior exam. Hypodense lesion within the right lobe of the liver measures 10 millimeters, similar to the prior exam. Some hypodensity adjacent the falciform ligament likely represents focal fat. 3 millimeter hypodense lesion within the inferior aspect of the right lobe is also stable. Gallbladder and bile ducts: Contracted with cholecystostomy tube centered within the gallbladder lumen. Normal diameter common duct. Spleen: Unremarkable. Normal in size without mass. Pancreas: Prominent pancreatic atrophy. Adrenal glands: Right adrenal nodule measuring 16 millimeters, similar to the prior exam. Kidneys: Symmetric renal enhancement with cortical thinning. Hyperdense left renal lesions redemonstrated, largest measuring 14 millimeters which are stable compared to the prior exam. Vasculature: Atherosclerosis without abdominal aortic aneurysm. GI tract: The stomach is decompressed. Eddie hepatis lymph nodes measure up to 14 millimeters, similar to the prior exam. No dilated loops of large or small intestine. Pelvis: Eason catheter present, however the balloon is inflated within the prostatic urethra with are noted in the bladder lumen. Small bladder diverticula. Fat density with peripheral soft tissue measuring up to 8.0 centimeters in the posterior subcutaneous tissues as well as a similar process within the left ischioanal fossa. Subcutaneous air present within this area (series 2, image 171). This extends cephalad to the level of the left ischium where there is new indistinctness at the inferior cortical margin with sclerosis in the intramedullary portion of the left ischium (series 2, image 169). Bones: Status post pin fixation of the right femoral head. Mild erosive changes at the anteroinferior aspect of L5. This can be due to severe degenerative disc disease although the differential diagnosis includes discitis. However, this finding is similar to the prior exam. IMPRESSION: 1. New air within the subcutaneous tissues at the level of the left ischioanal fossa suggestive of cellulitis with subcutaneous air which can represent a necrotizing infection or air introduced from a decubitus ulcer. No drainable abscess, however this process extends to the inferior margin of the left ischium with new sclerosis in the ischium and some indistinctness of the cortex suggesting early osteomyelitis. 2. Eason catheter with balloon at the level of the prostate. 3. Cholecystostomy tube within the gallbladder with the gallbladder decompressed. 4. Other incidental findings as noted above. Please note that all CT scans at this facility use dose modulation, iterative reconstruction, and/or weight-based dosing when appropriate to reduce radiation dose to as low as reasonably achievable. Dictated by Amandeep Pena MD @ 12/12/2024 3:26:18 PM (Electronically Signed)
[2024-12-12 14:48] LABS: Basophils Absolute Auto 0.01 K/uL (0.00-0.30); Basophils Percent Auto 0.1 % (0.0-3.0); Eosinophils Absolute Auto 0.21 K/uL (0.00-0.50); Eosinophils Percent Auto 2.5 % (0.0-7.0); Hematocrit 35.3 % (37.0-53.0); Hemoglobin* 10.7 gm/dL (13.5-17.5); Immature Granulocytes Abs Auto 0.05 K/uL (0.00-0.30); Immature Granulocytes Pct Auto 0.6 %; Lymphocytes Percent Auto 17.1 % (20-44); Mean Corpuscular HGB Conc 30 gm/dL (32-36); Mean Corpuscular Hemoglobin 26 pg (26-34); Mean Corpuscular Volume 84 fL (80-100); Monocytes Percent Auto 7.7 % (0.0-11.0); Neutrophils Absolute Auto 5.99 K/uL (1.7-7.0); Platelet Count* 216 K/uL (140-440); RDW Coefficient of Variation % 18.5 % (11.5-15.5); Red Blood Count 4.18 m/uL (4.30-5.90); White Blood Count* 8.32 K/uL (4.50-11.00)
[2024-12-12 14:57] LABS: Chloride* 102 mmol/L (96-114)
[2024-12-12 14:58] LABS: Albumin* 3.6 g/dL (3.3-5.0); Sodium* 137 mmol/L (135-149)
[2024-12-12 14:59] LABS: Potassium* 4.4 mmol/L (3.6-5.1)
[2024-12-12 15:01] LABS: Alanine Aminotransferase* 32 U/L (4-50); Alkaline Phosphatase* 90 U/L (40-150); Anion Gap 7 mEq/L (7-15); Aspartate Amino Transferase* 33 U/L (12-35); Bilirubin Total* 0.7 mg/dL (0.1-1.5); Blood Urea Nitrogen* 43 mg/dL (7-30); Calcium* 9.2 mg/dL (8.4-10.6); Carbon Dioxide* 28 mmol/L (20-32); Creatinine* 0.9 mg/dL (0.5-1.5); Est. Creatinine Clearance* 75.35; Estimated Glomerular Filt Rate 90 ml/min; Glucose* 187 mg/dL (60-115); Lipase* 60 U/L (23-300); Total Protein* 7.3 g/dL (6.0-8.3)
[2024-12-12 15:11] LABS: Slide Review Reflex No
[2024-12-12 15:28] LABS: Appearance Urine Cloudy (Clear); Bilirubin Urine Negative (Negative); Blood Urine 3+ (Negative); Color Urine Yellow (Yellow); Glucose Urine Negative (Negative); Ketones Urine Negative (Negative); Leukocyte Esterase Urine 3+ (Negative); Nitrite Urine Negative (Negative); Protein Urine 1+ (Negative); Specific Gravity Urine <= 1.005 (1.000-1.030); Urobilinogen Urine 0.2 (0.2-1.0)
[2024-12-12 15:32] LABS: PCR FLU A Negative PCR FLU A (Negative); PCR FLU B Negative PCR FLU B (Negative); SARS PCR* Negative SARS-CoV-2 (Negative)
[2024-12-12 15:35] LABS: Bacteria Urine Many; WBC Urine 50-100 (0-5)
[2024-12-12] MEDS: 0.9 % SODIUM CHLORIDE 1000 ml 1,000 ML IV ×2 (15:42→16:54)
--- NOTE | 2024-12-12 16:41 | P.IMHP_ITS ---
Assessment and Plan Assessment and plan (1) Stage IV pressure ulcer of left buttock: Problem comment: -Gen surgery to take to OR for debridement in am (12/13/24) -NPO after midnight -hold Eliquis -IVF -Discussed antibiotic plan with Patrick HARRY - Dr. Blackwood - oral amoxicillin and Bactrim ds sufficient- 2 weeks only. started 12/12. Status: Acute (2) Acute alteration in mental status: Problem comment: -mild -improved with IVF Status: Acute (3) Multiple sclerosis: Status: Acute (4) Neurogenic bowel: Problem comment: - would likely benefit from institution of bowel program, such as adequate hydration (minimum of 2 liters urine output daily), adequate fiber intake (20-30 grams daily), scheduled intermittent digital rectal stimulation (such as 3 times weekly) with scheduled elimination times, stool softners, etc. Status: Acute (5) Normocytic anemia: Problem comment: F/u with PCP as outpatient. Status: Acute (6) Elevated blood sugar: Problem comment: -A1c at last admission 7.6. SSI, accuchecks Status: Acute (7) Hypertension: Problem comment: continue lisinopril, furosemide, metoprolol, restart nifedipine Status: Chronic (8) Eason catheter in place: Problem comment: replaced in the ED 12/12 Status: Chronic (9) H/O insertion of cholecystostomy tube: Problem comment: - July 2024 at [facility]. - stable/decompressed gallbladder on CT at admission - unclear plan when lap jazmín is going to be Status: Chronic (10) Neurogenic bladder: Problem comment: - indwelling urinary catheter - exchanged 12/12 Status: Chronic Hospitalist- H&P: HPI History of Present Illness Date Seen: 12/12/24 Chief complaint: Weakness, possible sepsis Narrative: ADMISSION HISTORY AND PHYSICAL - HOSPITALIST Chief Complaint: AMS, weakness at [facility]. HPI: 74 y/o with significant PMH presents about 30 days from last discharge from our service. Most notably - he has MS and is wheelchair bound with paraplegia. He has chronic sacral wounds that are intermittently infected. 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 He has a chronic draining cholecystostomy tube placed in July 2024. He has a chronic indwelling catheter. He lives at [facility]. This morning he just remembers people yelling his name and telling him to open his eyes. He felt very weak and shaky. He was brought to the ED by EMS. He has not felt great since discharge; he feels the care at is subpar. Nobody has checked his blood sugars; he feels they don't work on his wounds very long. He feels weak more than good. During his last hospitalization, Dr. Mejia performed sharp excisional debridement to subcutaneous fat, 4 x 2.5 x 2 cm, bedside, on 11/17/24. He was sent back to on Augmentin and Bactrim. His wound cultures from that hospitalization are reviewed. 4 organisms. ESBL - MDR Klebsiella, Strep, ECOLI and MRSA. Care staff at the [facility] requested ER eval for AMS and weakness today. He's been off his antibiotics for 12 days. ER COURSE: New wound cultures, labs and updated CT. Gen surgery consult. CODE STATUS: DNR DNI PCP: Ty at EMERGENCY CONTACT PLAN: Malika Montgomery Rel To Pat Daughter Cell I've updated the PFSH, medications and allergies in the Expanse tabs. INVESTIGATIONS: LABS/MICRO/ECG/IMAGING 124/55, pulse 70, respirations 16, afebrile, 96% on room air Total white blood cell count 8.32. Hemoglobin stable at baseline 10.7. Platelets are normal. Chemistries and renal function are at his baseline. Blood glucose 187. Lactate minimally elevated at 2.0. LFTs are normal. UA is cloudy, well hydrated. 3+ blood but negative nitrite and 3+ leukocyte esterase. Many bacteria. By CT in the bulb of his Eason catheter was mid prostate. This was removed and a new Eason was placed. Negative respiratory swab. CT abdomen pelvis 1. New air within the subcutaneous tissues at the level of the left ischioanal fossa suggestive of cellulitis with subcutaneous air which can represent a necrotizing infection or air introduced from a decubitus ulcer. No drainable abscess, however this process extends to the inferior margin of the left ischium with new sclerosis in the ischium and some indistinctness of the cortex suggesting early osteomyelitis. 2. Eason catheter with balloon at the level of the prostate. 3. Cholecystostomy tube within the gallbladder with the gallbladder decompressed. 4. Other incidental findings as noted above. Wound culture, urine culture, 2 blood cultures are all now pending. Previous microorganisms noted include strep, MRSA, pansensitive E coli, ESBL Klebsiella and Proteus. REVIEW OF SYSTEMS: 12-point ROS completed with patient and negative unless otherwise stated in HPI or below. PHYSICAL EXAM: CONSTITUTIONAL: alert; he isn't super sharp but knows the basic details of his previous care. GENERAL: Looks tired, chronically ill. VITAL SIGNS: see record. HEENT: Sclerae are anicteric. No petechiae. CARDIAC: rhythm is regular. There is no S3 or rub. No harsh murmurs. Extremities show trace edema with symmetrical pulses. PULM: good air entry with no wheeze. NEURO: Speech is fluent. no obvious lateralization; I did not complete a full neuro. SKIN: Buttock - exam reported by general surgeon and ED doc - not examined directly by me. PSYCHIATRIC: Euthymic. ADMIT TO MEDSURG: FLOOR CARE DVT: holding Eliquis. GI: PO intake Time spent: Today I spent 75 minutes seeing the patient, discussing the patient with ER staff, reviewing Expanse and EPIC notes/diagnostics, discussing the care plan with our care time that includes social work, PT/OT, pharmacy, RT, detention and documenting my impressions and plan in the medical record. No further workup is necessary before workup. Considerations for IV Ancef prior to surgery and restarting Elquis as soon as hemostasis is assured. MEDICAL NECESSITY FOR HOSPITALIZATION Anticipated midnights in the hospital: 2 Admitting diagnosis: Decubitus ulcer Risk of morbidity and mortality: high Acuity is characterized as high and reflected in: immunosuppression from MS, poor mobility/generalized olena, frequent hospitalizations, draining cholecystostomy tube, chronic anticoagulation. This patient will require hospital services as outlined in the assessment and plan in order to stabilize and be safely discharged to a lower level of care. Because of the risk and acuity as described above, this patient cannot be managed at a lower level of care. LENGTH OF STAY: 2 IP ? Anticipated LOS>2 midnights due to acuity of clinical presentation requiring inpatient level of care [facility] Medical History (Updated 12/12/24 @ 18:32 by Danae Tabares MD) Stage III pressure ulcer of sacral region ?L89.153 - Pressure ulcer of sacral region, stage 3 (ICD-10) Stage III pressure ulcer of buttock ?L89.303 - Pressure ulcer of unspecified buttock, stage 3 (ICD-10) Pressure ulcer of coccygeal region, stage 1 ?L89.151 - Pressure ulcer of sacral region, stage 1 (ICD-10) Neurogenic bowel ?K59.2 - Neurogenic bowel, not elsewhere classified (ICD-10) Hyperuricemia ?E79.0 - Hyperuricemia without signs of inflammatory arthritis and tophaceous disease (ICD-10) Elevated blood sugar ?R73.9 - Hyperglycemia, unspecified (ICD-10) Hyperlipidemia ?E78.5 - Hyperlipidemia, unspecified (ICD-10) Hypertension ?I10 - Essential (primary) hypertension (ICD-10) Coronary artery disease ?I25.10 - Atherosclerotic heart disease of [place] coronary artery without angina pectoris (ICD-10) Fracture, intertrochanteric, right femur ?S72.141A - Displaced intertrochanteric fracture of right femur, initial encounter for closed fracture (ICD-10) Sleep apnea ?G47.30 - Sleep apnea, unspecified (ICD-10) Eason catheter in place ?Z97.8 - Presence of other specified devices (ICD-10) Neurogenic bladder ?N31.9 - Neuromuscular dysfunction of bladder, unspecified (ICD-10) Obesity ?E66.9 - Obesity, unspecified (ICD-10) Multiple sclerosis ?G35 - Multiple sclerosis (ICD-10) Surgical History (Updated 12/12/24 @ 18:09 by Danae Tabares MD) H/O insertion of cholecystostomy tube ?Z98.890 - Other specified postprocedural states (ICD-10) Family History (Updated 11/16/24 @ 16:58 by Rodolfo James MD) Father Coronary artery disease High blood pressure High cholesterol Sleep apnea Social History (Updated 11/16/24 @ 16:59 by Rodolfo James MD) Narrative: Resident of [facility]. Daughter Malika is healthcare power of prosecuting attorney. Code status is DNR. Remote history of smoking What is your current living situation?: I presently have a place to live Problems where you live: no known problems Problems where you live details: na In the past 12 months, utilities in danger of being shut off: no In past 12 months, lack of transportation kept you from medical appts, meetings, work, or getting things needed for daily living: no In the past 12 mos, have been you worried that your food would run out before you had money to buy more?: often true In the past 12 mos, the food you bought just didn't last and you didn't have money to buy more?: often true Highest level of school completed/degree received: 12th grade, no diploma Smoking Status: Former smoker What tobacco products do you use: cigarettes Smoking quit date/years: <= 15 years ago Do you use any of these nicotine containing products: None Second hand tobacco smoke exposure: No How often do you have a drink containing alcohol: never AUDIT-C Alcohol total score: 0 Non-prescribed substance use: denies use Caffeine: Yes How often does anyone, including family, friends and others, physically hurt you : never How often does anyone, including family, friends and others, insult or talk down to you: never How often does anyone, including family, friends and others, threaten you with harm: never How often does anyone, including family, friends and others, scream or curse at you: never service: No Health Related Social Needs: food insecurity (Z59.41) Meds Home Medications and Allergies Home Medications ?Medication ?Instructions ?Recorded ?Confirmed ?Type acetaminophen 500 mg tablet 1,000 mg PO TID 08/07/24 0 12/12/24 History aspirin 81 mg tablet,delayed 81 mg PO DAILY 08/07/24 0 12/12/24 History release calcium carbonate (Zachary-Gest 400 mg PO BID 08/07/24 History Antacid) cholecalciferol (vitamin D3) 25 25 mcg PO DAILY 12/12/24 History mcg (1,000 unit) tablet (Vitamin D3) furosemide 40 mg tablet 40 mg PO DAILY 08/07/2411/22 History lisinopril 40 mg tablet 40 mg PO DAILY 08/07/2411/22 History metoprolol succinate 100 mg 100 mg PO DAILY 08/07/24 0 12/12/24 History tablet,extended release 24 hr nifedipine 90 mg tablet,extended 90 mg PO DAILY 12/12/24 History release 24 hr pantoprazole 40 mg tablet,delayed 40 mg PO BID 5 12/12/24 History release polyethylene glycol 3350 17 17 g PO DAILY 08/07/24 History gram/dose oral powder potassium chloride 10 mEq 10 meq PO BIDWM 08/07/24 History capsule,extended release apixaban 5 mg tablet (Eliquis) 5 mg PO BID 11/16/24 History atorvastatin 80 mg tablet 80 mg PO HS 11/16/24 5 History bacitracin 500 unit/gram topical 1 applic topical BID 11/16/24 12/12/24 History ointment baclofen 10 mg tablet 10 mg PO BID 11/16/24 History bisacodyl 10 mg rectal suppository 10 mg [place] DAILY PRN 11/16/24 12/12/24 History diclofenac sodium 1 % topical gel 2 g topical BID PRN 11/16/24 12/12/24 History furosemide 20 mg tablet 20 mg PO QPM 11/16/24 History latanoprost 0.005 % eye drops 1 drp ophthalmic (eye) H S 11/16/24 12/12/24 History ondansetron HCl 4 mg tablet 4 mg PO Q6H PRN 11/16/24 0 12/12/24 History sennosides 8.6 mg-docusate sodium 2 tab-cap PO DAILY 0 11/16/24 12/12/24 History 50 mg tablet (Senna Plus) carbamide peroxide 6.5 % ear drops 5 drp otic (ear) Q7 D 11/17/24 12/12/24 History (Ear Wax Removal Kit) allopurinol 100 mg tablet 100 mg PO DAILY #30 tabs 12/12/24 Rx ferrous sulfate 325 mg (65 mg 325 mg PO Q48H #15 tabs 11/19/24 12/12/24 Rx iron) tablet clotrimazole 1 % topical cream 1 applic topical BID 12/12/24 History Allergies Allergy/AdvReac Type Severity Reaction Status Date / Time Haemophilus B polysaccharide Allergy Unknown Verified 12/12/24 13:32 conj w vancomycin Allergy Unknown Verified 12/12/24 13:32 Exam Const: Vital Signs, click to edit/add: Vital Signs - 24 hr 12/12/24 13:32 12/12/24 13:42 12/12/24 13:43 Temperature 97.1 F L Pulse Rate 70 70 Pulse Rate [Pulse Oximeter] 74 Respiratory Rate Blood Pressure 118/63 Blood Pressure [Ri ght Upper Arm] 118/63 Pulse Oximetry 95 96 95 Oxygen Delivery [facility] Room Air 12/12/24 13:45 12/12/24 14:00 12/12/24 14:15 Temperature Pulse Rate 71 73 72 Pulse Rate [Pulse Oximeter] Respiratory Rate Blood Pressure Blood Pressure [Ri ght Upper Arm] Pulse Oximetry 96 97 98 Oxygen Delivery [facility] 12/12/24 14:58 12/12/24 15:00 12/12/24 15:01 Temperature Pulse Rate 71 70 71 Pulse Rate [Pulse Oximeter] Respiratory Rate 16 18 Blood Pressure 123/51 L 114/54 L Blood Pressure [Ri ght Upper Arm] Pulse Oximetry 96 95 95 Oxygen Delivery [facility] 12/12/24 15:02 12/12/24 15:15 12/12/24 15:30 Temperature Pulse Rate 71 71 72 Pulse Rate [Pulse Oximeter] Respiratory Rate 21 18 14 Blood Pressure Blood Pressure [Ri ght Upper Arm] Pulse Oximetry 96 95 95 Oxygen Delivery [facility] 12/12/24 15:32 Temperature Pulse Rate 74 Pulse Rate [Pulse Oximeter] Respiratory Rate 16 Blood Pressure 124/55 L Blood Pressure [Ri ght Upper Arm] Pulse Oximetry 96 Oxygen Delivery [facility] Hospitalist - H&P: Result Labs Labs: Short CBC 12/12/24 Range/Units 14:30 WBC 8.32 (4.50-11.00) K/uL Hgb 10.7 L (13.5-17.5) gm/dL Hct 35.3 L (37.0-53.0) % Plt Count 216 (140-440) K/uL [facility] 12/12/24 14:30 Sodium 137 Potassium 4.4 Chloride 102 Carbon Dioxide 28 BUN 43 H Creatinine 0.9 Glucose 187 H Calcium 9.2 Liver Function 12/12/24 Range/Units 14:30 Total Bilirubin 0.7 (0.1-1.5) mg/dL AST 33 (12-35) U/L ALT 32 (4-50) U/L Alkaline Phosphatase 90 (40-150) U/L Albumin 3.6 (3.3-5.0) g/dL Urine 12/12/24 Range/Units 15:26 Urine Color Yellow (Yellow) Urine Appearance Cloudy A (Clear) Urine pH 6.0 (5.0-8.5) Ur Specific [place] <= 1.005 (1.000-1.030) Urine Protein 1+ A (Negative) Urine Glucose (UA) Negative (Negative)
[2024-12-12 16:43] LABS: Lactate Sepsis 2 Hour 1.6 mmol/L (0.5-1.9)
--- NOTE | 2024-12-12 16:56 | PM.GSCN ---
History of Present Illness Consult details Date Seen: 12/12/24 Consult date: 12/12/24 Narrative: Patient presented to the emergency department from [facility] for altered mental status and weakness. He was scheduled to see me in clinic at 3:00 p.m., before presenting here to evaluate his pressure ulcers. There was concern at his last wound appointment for worsening depth of the left ischial tuberosity ulcer and infection. He does report pain at his wounds. He is unsure if the pain is getting worse. He does need frequent dressing changes and has a lot of drainage. History is limited from the patient. Patient has a complex medical history which includes multiple sclerosis, pressure ulcers, history of DVT and pulmonary emboli currently on Eliquis, cholecystostomy tube placement for history of cholecystitis in July and long-term indwelling Eason catheter. Patient had a recent hospitalization 11/16- 11/20. He was taken to the OR for the left ischial tuberosity ulcer where debridement was performed and cultures obtained. Infectious Disease was consulted during the last hospitalization due to the presence of multiple drug-resistant organisms. Review of Systems Status of ROS: Reports: unobtainable due to medical condition [facility] Medical History (Updated 12/12/24 @ 17:04 by Sue Bailey MD) Neurogenic bowel ?K59.2 - Neurogenic bowel, not elsewhere classified (ICD-10) Hyperuricemia ?E79.0 - Hyperuricemia without signs of inflammatory arthritis and tophaceous disease (ICD-10) Elevated blood sugar ?R73.9 - Hyperglycemia, unspecified (ICD-10) Hyperlipidemia ?E78.5 - Hyperlipidemia, unspecified (ICD-10) Hypertension ?I10 - Essential (primary) hypertension (ICD-10) Coronary artery disease ?I25.10 - Atherosclerotic heart disease of [place] coronary artery without angina pectoris (ICD-10) Fracture, intertrochanteric, right femur ?S72.141A - Displaced intertrochanteric fracture of right femur, initial encounter for closed fracture (ICD-10) Sleep apnea ?G47.30 - Sleep apnea, unspecified (ICD-10) Eason catheter in place ?Z97.8 - Presence of other specified devices (ICD-10) Neurogenic bladder ?N31.9 - Neuromuscular dysfunction of bladder, unspecified (ICD-10) Obesity ?E66.9 - Obesity, unspecified (ICD-10) Multiple sclerosis ?G35 - Multiple sclerosis (ICD-10) Surgical History (Updated 11/24/24 @ 00:00 by Background Arturo) H/O insertion of cholecystostomy tube ?Z98.890 - Other specified postprocedural states (ICD-10) Family History (Updated 11/16/24 @ 16:58 by Rodolfo James MD) Father Coronary artery disease High blood pressure High cholesterol Sleep apnea Social History (Updated 11/16/24 @ 16:59 by Rodolfo James MD) Narrative: Resident of [facility]. Daughter Malika is healthcare power of deputy attorney general. Code status is DNR. Remote history of smoking What is your current living situation?: I presently have a place to live Problems where you live: no known problems Problems where you live details: na In the past 12 months, utilities in danger of being shut off: no In past 12 months, lack of transportation kept you from medical appts, meetings, work, or getting things needed for daily living: no In the past 12 mos, have been you worried that your food would run out before you had money to buy more?: often true In the past 12 mos, the food you bought just didn't last and you didn't have money to buy more?: often true Highest level of school completed/degree received: 12th grade, no diploma Smoking Status: Former smoker What tobacco products do you use: cigarettes Smoking quit date/years: <= 15 years ago Do you use any of these nicotine containing products: None Second hand tobacco smoke exposure: No How often do you have a drink containing alcohol: never AUDIT-C Alcohol total score: 0 Non-prescribed substance use: denies use Caffeine: Yes How often does anyone, including family, friends and others, physically hurt you: never How often does anyone, including family, friends and others, insult or talk down to you: never How often does anyone, including family, friends and others, threaten you with harm: never How often does anyone, including family, friends and others, scream or curse at you: never service: No Health Related Social Needs: food insecurity (Z59.41) Meds Home Medications and Allergies Home Medications ?Medication ?Instructions ?Recorded ?Confirmed ?Type acetaminophen 500 mg tablet 1,000 mg PO TID 08/07/24 12/12/24 History aspirin 81 mg tablet,delayed 81 mg PO DAILY 08/07/24 12/12/24 History release calcium carbonate (Zachary-Gest 400 mg PO BID 08/07/24 12/12/24 History Antacid) cholecalciferol (vitamin D3) 25 25 mcg PO DAILY 08/07/24 12/12/24 History mcg (1,000 unit) tablet (Vitamin D3) furosemide 40 mg tablet 40 mg PO DAILY 08/07/24 12/12/24 History lisinopril 40 mg tablet 40 mg PO DAILY 08/07/24 12/12/24 History metoprolol succinate 100 mg 100 mg PO DAILY 08/07/24 12/12/24 History tablet,extended release 24 hr nifedipine 90 mg tablet,extended 90 mg PO DAILY 08/07/24 12/12/24 History release 24 hr pantoprazole 40 mg tablet,delayed 40 mg PO BID 08/07/24 12/12/24 History release polyethylene glycol 3350 17 17 g PO DAILY 08/07/24 12/12/24 History gram/dose oral powder potassium chloride 10 mEq 10 meq PO BIDWM 08/07/24 12/12/24 History capsule,extended release apixaban 5 mg tablet (Eliquis) 5 mg PO BID 11/16/24 12/12/24 History atorvastatin 80 mg tablet 80 mg PO HS 11/16/24 12/12/24 History bacitracin 500 unit/gram topical 1 applic topical BID 11/16/24 12/12/24 History ointment baclofen 10 mg tablet 10 mg PO BID 11/16/24 12/12/24 History bisacodyl 10 mg rectal suppository 10 mg SD DAILY PRN 11/16/24 12/12/24 History diclofenac sodium 1 % topical gel 2 g topical BID PRN 11/16/24 12/12/24 History furosemide 20 mg tablet 20 mg PO QPM 11/16/24 12/12/24 History latanoprost 0.005 % eye drops 1 drp ophthalmic (eye) HS 11/16/24 12/12/24 History ondansetron HCl 4 mg tablet 4 mg PO Q6H PRN 11/16/24 12/12/24 History sennosides 8.6 mg-docusate sodium 2 tab-cap PO DAILY 11/16/24 12/12/24 History 50 mg tablet (Senna Plus) carbamide peroxide 6.5 % ear drops 5 drp otic (ear) Q7D 11/17/24 12/12/24 History (Ear Wax Removal Kit) allopurinol 100 mg tablet 100 mg PO DAILY #30 tabs 11/19/24 12/12/24 Rx ferrous sulfate 325 mg (65 mg 325 mg PO Q48H #15 tabs 11/19/24 12/12/24 Rx iron) tablet clotrimazole 1 % topical cream 1 applic topical BID 12/12/24 12/12/24 History Allergies Allergy/AdvReac Type Severity Reaction Status Date / Time Haemophilus B polysaccharide Allergy Unknown Verified 12/12/24 13:32 conj w vancomycin Allergy Unknown Verified 12/12/24 13:32 Exam Narrative: Exam Narrative: General: Alert and oriented to self and place. Nontoxic Respiratory: Equal breath rise, maintained on room air CV: Well perfused Abdomen: Soft, cholecystostomy tube in place, no guarding or rebound. : Eason in place Removal of left ischial tuberosity packing. Necrotic subcutaneous tissue is present on the superior aspect of the wound bed and medially. Some necrotic skin is also present, again on the superior aspect of the opening. Some surrounding redness is likely secondary to pressure with no significant induration. The ulcer is palpated down to bone. No undrained pockets of fluid are appreciated. Const: Vital Signs, click to edit/add: Vital Signs - 24 hr 12/12/24 13:32 12/12/24 13:42 12/12/24 13:43 Temperature 97.1 F L Pulse Rate 70 70 Pulse Rate [Pulse Oximeter] 74 Respiratory Rate Blood Pressure 118/63 Blood Pressure [Ri ght Upper Arm] 118/63 Pulse Oximetry 95 96 95 Oxygen Delivery Me thod Room Air 12/12/24 13:45 12/12/24 14:00 12/12/24 14:15 Temperature Pulse Rate 71 73 72 Pulse Rate [Pulse Oximeter] Respiratory Rate Blood Pressure Blood Pressure [Ri ght Upper Arm] Pulse Oximetry 96 97 98 Oxygen Delivery Me thod 12/12/24 14:58 12/12/24 15:00 12/12/24 15:01 Temperature Pulse Rate 71 70 71 Pulse Rate [Pulse Oximeter] Respiratory Rate 16 18 Blood Pressure 123/51 L 114/54 L Blood Pressure [Ri ght Upper Arm] Pulse Oximetry 96 95 95 Oxygen Delivery Me thod 12/12/24 15:02 12/12/24 15:15 12/12/24 15:30 Temperature Pulse Rate 71 71 72 Pulse Rate [Pulse Oximeter] Respiratory Rate 21 18 14 Blood Pressure Blood Pressure [Ri ght Upper Arm] Pulse Oximetry 96 95 95 Oxygen Delivery Me thod 12/12/24 15:32 Temperature Pulse Rate 74 Pulse Rate [Pulse Oximeter] Respiratory Rate 16 Blood Pressure 124/55 L Blood Pressure [Ri ght Upper Arm] Pulse Oximetry 96 Oxygen Delivery Me thod Results Labs Labs: Abnormal lab results 12/12/24 12/12/24 Range/Units 14:30 15:26 RBC 4.18 L (4.30-5.90) m/uL Hgb 10.7 L (13.5-17.5) gm/dL Hct 35.3 L (37.0-53.0) % MCHC 30 L (32-36) gm/dL RDW Coeff of Rey 18.5 H (11.5-15.5) % Lymph % (Auto) 17.1 L (20-44) % BUN 43 H (7-30) mg/dL Glucose 187 H (60-115) mg/dL Lactate 2.0 H (0.5-1.9) mmol/L Urine Appearance Cloudy A (Clear) Urine Protein 1+ A (Negative) Urine Blood 3+ A (Negative) Ur Leukocyte Esterase 3+ A (Negative) Urine RBC 10-25 A (0-2) Urine WBC 50-100 A (0-5) Urine Bacteria Many A (None) Diabetes panel 12/12/24 Range/Units 14:30 Sodium 137 (135-149) mmol/L Potassium 4.4 (3.6-5.1) mmol/L Chloride 102 (96-114) mmol/L Carbon Dioxide 28 (20-32) mmol/L BUN 43 H (7-30) mg/dL Creatinine 0.9 (0.5-1.5) mg/dL Glucose 187 H (60-115) mg/dL Calcium 9.2 (8.4-10.6) mg/dL AST 33 (12-35) U/L ALT 32 (4-50) U/L Alkaline Phosphatase 90 (40-150) U/L Total Protein 7.3 (6.0-8.3) g/dL Albumin 3.6 (3.3-5.0) g/dL Calcium panel 12/12/24 Range/Units 14:30 Calcium 9.2 (8.4-10.6) mg/dL Albumin 3.6 (3.3-5.0) g/dL Pituitary panel 12/12/24 Range/Units 14:30 Sodium 137 (135-149) mmol/L Potassium 4.4 (3.6-5.1) mmol/L Chloride 102 (96-114) mmol/L Carbon Dioxide 28 (20-32) mmol/L BUN 43 H (7-30) mg/dL Creatinine 0.9 (0.5-1.5) mg/dL Glucose 187 H (60-115) mg/dL Calcium 9.2 (8.4-10.6) mg/dL Adrenal panel 12/12/24 Range/Units 14:30 Sodium 137 (135-149) mmol/L Potassium 4.4 (3.6-5.1) mmol/L Chloride 102 (96-114) mmol/L Carbon Dioxide 28 (20-32) mmol/L BUN 43 H (7-30) mg/dL Creatinine 0.9 (0.5-1.5) mg/dL Glucose 187 H (60-115) mg/dL Calcium 9.2 (8.4-10.6) mg/dL Total Bilirubin 0.7 (0.1-1.5) mg/dL AST 33 (12-35) U/L ALT 32 (4-50) U/L Alkaline Phosphatase 90 (40-150) U/L Total Protein 7.3 (6.0-8.3) g/dL Albumin 3.6 (3.3-5.0) g/dL All other labs normal. Progress Note:A&P Assessment and plan (1) Stage IV pressure ulcer of left buttock: Status: Acute Assessment and Plan: Patient is a 74-year-old male with evidence of a worsening stage IV pressure ulcer over the left ischial tuberosity. This does tunnel down to palpable bone, concerning for osteomyelitis. Given the significant amount of necrotic tissue within the wound bed would recommend debridement in the operating room. At this time the patient is not septic in appearance, but does appear deconditioned. CT scan does make note of air within the soft tissues, but the scan does not extend down to fully evaluate the wound. This does seem more consistent with air introduced from a stage IV pressure ulcer with tunneling versus necrotizing infection. Recommend resuscitation with fluids and hold his Eliquis. Will plan to debride the wound in the operating room tomorrow under mac anesthesia. Antibiotics are per ID and the hospitalist.
[2024-12-12] MEDS: AMOXICILLIN 250 MG CAPSULE 500 MG PO ×2 (18:30→21:35)
[2024-12-12] MEDS: POTASSIUM CHLORIDE 10 MEQ CAPSULE ER PO (18:30)
[2024-12-12] MEDS: SULFA/TRIMETHOPRIM 800/160 1 TAB PO ×2 (18:31→21:36)
[2024-12-12] MEDS: FUROSEMIDE 20 MG TABLET PO (18:31)
--- NOTE | 2024-12-12 18:46 | PC.NURSE ---
Nursing Care Hours: [id number] Pt this shift calm and cooperative, alert and oriented to self, place and time. Did state 2023 as the year. Pain rated to coccyx area 7/10. Dressings reported by ED nurse to have been changed x2. Event Marketing Intern observed dressings. Left glute dressing has shadow drainage less than 50% of dressing. Left in place. Others CDI. Eason cath patent with pale yellow cloudy u/o, no odor. Odor coming from cholecystomy tube, drainage yellow brown in bag and less than 25% filled. Pt has bilat weakness to UE. Is able to feed self but reports getting fatigued so COMPATIBILITY TEST ENGINEER assisting. Unable to move L leg, weakness to R leg but is able to pedal push against resistance. Tele shows NSR. VSS.
[2024-12-12 19:08] LABS: C Reactive Protein* 23.3 mg/dL (0.5-1.0)
[2024-12-12] MEDS: INSULIN ASPART 100 UNIT/ML SUBCUT (21:32)
[2024-12-12] MEDS: ATORVASTATIN CALCIUM 40 MG TABLET 80 MG PO (21:35)
[2024-12-12] MEDS: OMEPRAZOLE 20 MG CAPSULE DR 40 MG PO (21:35)
[2024-12-12] MEDS: ACETAMINOPHEN 500 MG TABLET 1000 MG PO (21:35)
[2024-12-12] MEDS: LATANOPROST 0.005% OPHTH 1 DROP EYE-BOTH (21:37)
[2024-12-12] MEDS: LIDOCAINE 5% PATCH 1 PATCH TRANSDERMA (21:37)
[2024-12-12] MEDS: BACLOFEN 10 MG TABLET PO (21:37)
[2024-12-12] MEDS: SODIUM CHLORIDE 0.9 % (FLUSH) 10 ML SYRINGE 5 ML IVF (21:37)
[2024-12-12] MEDS: CLOTRIMAZOLE 1 % CREAM 1 APPLIC TOPICAL (21:37)
[2024-12-12] MEDS: MORPHINE 2 MG/ML inj IVP (21:39)
[2024-12-13] VITALS (17 sets, daily range): BP systolic 97–119; BP diastolic 47–63; PULSE 64–85; RESP 12–18; TEMP 36.2–37; O2SAT 90–96; BMI 33.7
[2024-12-13 06:21] LABS: HCO3 VBG 25 mmol/L (21-28); PCO2 VBG 42 mmHG (40-50); PO2 VBG 49.5 mmHG (25-47); pH VBG 7.382 (7.32-7.43)
[2024-12-13 06:27] LABS: Eosinophils Absolute Auto 0.39 K/uL (0.00-0.50); Hematocrit 31.4 % (37.0-53.0); Hemoglobin* 9.5 gm/dL (13.5-17.5); Immature Granulocytes Abs Auto 0.05 K/uL (0.00-0.30); Immature Granulocytes Pct Auto 0.5 %; Lymphocytes Percent Auto 9.5 % (20-44); Mean Corpuscular HGB Conc 30 gm/dL (32-36); Mean Corpuscular Hemoglobin 26 pg (26-34); Mean Corpuscular Volume 85 fL (80-100); Monocytes Percent Auto 5.5 % (0.0-11.0); Neutrophils Percent Auto 80.5 % (42.0-72.0); Platelet Count* 223 K/uL (140-440); RDW Coefficient of Variation % 18.7 % (11.5-15.5); Red Blood Count 3.71 m/uL (4.30-5.90); White Blood Count* 9.86 K/uL (4.50-11.00)
[2024-12-13 06:31] LABS: Slide Review Reflex No
[2024-12-13 06:45] LABS: Albumin* 3.1 g/dL (3.3-5.0); Chloride* 106 mmol/L (96-114); Sodium* 138 mmol/L (135-149)
[2024-12-13 06:48] LABS: Alanine Aminotransferase* 27 U/L (4-50); Alkaline Phosphatase* 90 U/L (40-150); Anion Gap 7 mEq/L (7-15); Aspartate Amino Transferase* 25 U/L (12-35); Bilirubin Direct* 0.4 mg/dL (0.0-0.5); Bilirubin Total* 0.4 mg/dL (0.1-1.5); Blood Urea Nitrogen* 32 mg/dL (7-30); Carbon Dioxide* 25 mmol/L (20-32); Creatinine* 0.9 mg/dL (0.5-1.5); Est. Creatinine Clearance* 71.13; Estimated Glomerular Filt Rate 90 ml/min; Total Protein* 6.3 g/dL (6.0-8.3)
[2024-12-13 06:49] LABS: Calcium* 8.8 mg/dL (8.4-10.6); Glucose* 216 mg/dL (60-115); Phosphorus* 3.1 mg/dL (2.5-4.5)
--- NOTE | 2024-12-13 06:58 | PC.NURSE ---
Pt alert, oriented to self and vitally stable. Tele NSR with first degree AV block. Pt stated pain rated 10/10, (Rayshawn) notified, prn morphine provided and pt stated improvement. Repositioned q2h to offload off bottom. Cholecystostomy drainage reddened with sediment, odor noted. Eason patent and draining. Urethral opening has scant amounts of blood, pt denies pain. The sacral dressing changed as needed, drainage purulent and dark (brown) tinged. Mepilex to sacrum and right buttock. Pt in bed, appears to be resting, call light within reach. ?
[2024-12-13 07:04] LABS: C Reactive Protein* 22.3 mg/dL (0.5-1.0)
[2024-12-13] MEDS: OMEPRAZOLE 20 MG CAPSULE DR 40 MG PO ×2 (09:25→20:41)
[2024-12-13] MEDS: SENNOSIDES/DOCUSATE TABLET 2 TAB PO ×2 (09:25→20:49)
[2024-12-13] MEDS: ACETAMINOPHEN 500 MG TABLET 1000 MG PO ×3 (09:26→20:42)
[2024-12-13] MEDS: BACLOFEN 10 MG TABLET PO ×2 (09:26→20:44)
[2024-12-13] MEDS: AMOXICILLIN 250 MG CAPSULE 500 MG PO ×3 (09:26→20:39)
[2024-12-13] MEDS: METOPROLOL SUCCINATE (XL) 100 MG TAB PO (09:27)
[2024-12-13] MEDS: polyethylene glycoL 3350 17 GM PACK PO (09:27)
[2024-12-13] MEDS: SULFA/TRIMETHOPRIM 800/160 1 TAB PO ×2 (09:27→20:39)
[2024-12-13] MEDS: CLOTRIMAZOLE 1 % CREAM 1 APPLIC TOPICAL ×2 (09:28→20:44)
[2024-12-13] MEDS: SODIUM CHLORIDE 0.9 % (FLUSH) 10 ML SYRINGE 5 ML IVF (09:29)
[2024-12-13] MEDS: POTASSIUM CHLORIDE 10 MEQ CAPSULE ER PO ×2 (09:35→17:39)
--- NOTE | 2024-12-13 10:46 | PC.SOCIAL ---
Social work: REceived call from pt's Cristina case management, providing pt's counseling case managerhealth care manager information: Karrie Singer [phone].
--- NOTE | 2024-12-13 12:35 | P.ANES_ITS ---
Anesthesia Charges Start Date/Time Anesthesia Start Date: 12/13/24 Anesthesia Start Time: 14:57 Stop Date/Time Anesthesia Stop Date: 12/13/24 Anesthesia Stop Time: 16:25 Summary Extremes of Age - Over 70 or under 1: MDA Coding CPT Codes CPT Codes: ANESTH ANORECTAL SURGERY - 92893 ([id number]) P3 - PATIENT W/SEVERE SYS DISEASE, QK - RETROFIT INSTALLER 2-4 CNCRNT ANES PROC, QX - SALES APPLICATIONS ENGINEER SVC W/ MD MED DIRECTION Additional Codes: Summary - Extremes of Age - Over 70 or under 1: MDA ([id number])
--- NOTE | 2024-12-13 12:35 | P.GSPN_ITS ---
Subjective Subjective Date Seen: 12/13/24 Interval history: Patient was able to get some rest overnight. Continued pain on the left side. No other concerns. Risks and benefits of surgery were discussed at length with all questions addressed. Exam Narrative: Exam Narrative: General: Alert and oriented, no acute distress. Nontoxic Respiratory: Equal breath rise bilaterally, maintained on room air CV: Well perfused : Deferred, patient to go to the OR later today Const: Vital Signs, click to edit/add: Vital Signs - 24 hr 12/12/24 13:32 12/12/24 13:42 12/12/24 13:43 Temperature 97.1 F L Pulse Rate 70 70 Pulse Rate [Left P ulse Oximeter] Pulse Rate [Left R adial] Pulse Rate [Pulse Oximeter] 74 Respiratory Rate Blood Pressure 118/63 Blood Pressure [Ri ght Arm] Blood Pressure [Ri ght Upper Arm] 118/63 Pulse Oximetry 95 96 95 [facility] 12/12/24 13:45 12/12/24 14:00 12/12/24 14:15 Temperature Pulse Rate 71 73 72 Pulse Rate [Left P ulse Oximeter] Pulse Rate [Left R adial] Pulse Rate [Pulse Oximeter] Respiratory Rate Blood Pressure Blood Pressure [Ri ght Arm] Blood Pressure [Ri ght Upper Arm] Pulse Oximetry 96 97 98 [facility] 12/12/24 14:58 12/12/24 15:00 12/12/24 15:01 Temperature Pulse Rate 71 70 71 Pulse Rate [Left P ulse Oximeter] Pulse Rate [Left R adial] Pulse Rate [Pulse Oximeter] Respiratory Rate 16 18 Blood Pressure 123/51 L 114/54 L Blood Pressure [Ri ght Arm] Blood Pressure [Ri ght Upper Arm] Pulse Oximetry 96 95 95 Oxygen Delivery Me thod 12/12/24 15:02 12/12/24 15:15 12/12/24 15:30 Temperature Pulse Rate 71 71 72 Pulse Rate [Left P ulse Oximeter] Pulse Rate [Left R adial] Pulse Rate [Pulse Oximeter] Respiratory Rate 21 18 14 Blood Pressure Blood Pressure [Ri ght Arm] Blood Pressure [Ri ght Upper Arm] Pulse Oximetry 96 95 95 Oxygen Delivery Me thod 12/12/24 15:32 12/12/24 15:33 12/12/24 15:45 Temperature Pulse Rate 74 75 Pulse Rate [Left P ulse Oximeter] Pulse Rate [Left R adial] Pulse Rate [Pulse Oximeter] Respiratory Rate 16 11 L 16 Blood Pressure 124/55 L Blood Pressure [Ri ght Arm] Blood Pressure [Ri ght Upper Arm] Pulse Oximetry 96 96 [facility] 12/12/24 16:00 12/12/24 16:02 12/12/24 16:15 Temperature Pulse Rate 74 74 Pulse Rate [Left P ulse Oximeter] Pulse Rate [Left R adial] Pulse Rate [Pulse Oximeter] Respiratory Rate 16 24 20 Blood Pressure 110/82 Blood Pressure [Ri ght Arm] Blood Pressure [Ri ght Upper Arm] Pulse Oximetry 96 96 Oxygen Delivery [facility] 12/12/24 16:30 12/12/24 16:32 12/12/24 16:45 Temperature Pulse Rate Pulse Rate [Left P ulse Oximeter] Pulse Rate [Left R adial] Pulse Rate [Pulse Oximeter] Respiratory Rate 17 16 22 Blood Pressure 112/44 L Blood Pressure [Ri ght Arm] Blood Pressure [Ri ght Upper Arm] Pulse Oximetry Oxygen Delivery [facility] 12/12/24 17:00 12/12/24 17:01 12/12/24 17:35 Temperature 97.6 F Pulse Rate Pulse Rate [Left P ulse Oximeter] 75 Pulse Rate [Left R adial] Pulse Rate [Pulse Oximeter] Respiratory Rate 18 19 20 Blood Pressure 123/50 L Blood Pressure [Ri ght Arm] 136/57 L Blood Pressure [Ri ght Upper Arm] Pulse Oximetry 100 Oxygen Delivery [facility] Room Air 12/12/24 17:35 12/12/24 19:00 12/12/24 20:13 Temperature Pulse Rate 76 Pulse Rate [Left P ulse Oximeter] Pulse Rate [Left R adial] Pulse Rate [Pulse Oximeter] Respiratory Rate 20 16 Blood Pressure Blood Pressure [Ri ght Arm] Blood Pressure [Ri ght Upper Arm] Pulse Oximetry 93 [facility] 12/12/24 23:00 12/12/24 23:00 12/12/24 23:30 Temperature Pulse Rate 79 Pulse Rate [Left P ulse Oximeter] 75 Pulse Rate [Left R adial] Pulse Rate [Pulse Oximeter] Respiratory Rate 14 14 Blood Pressure Blood Pressure [Ri ght Arm] Blood Pressure [Ri ght Upper Arm] Pulse Oximetry Oxygen Delivery Me thod 12/13/24 03:00 12/13/24 06:00 12/13/24 07:00 Temperature Pulse Rate 72 Pulse Rate [Left P ulse Oximeter] Pulse Rate [Left R adial] Pulse Rate [Pulse Oximeter] Respiratory Rate 12 14 Blood Pressure Blood Pressure [Ri ght Arm] Blood Pressure [Ri ght Upper Arm] Pulse Oximetry Oxygen Delivery Me thod 12/13/24 07:49 12/13/24 11:40 Temperature 98.3 F 98.1 F Pulse Rate Pulse Rate [Left P ulse Oximeter] Pulse Rate [Left R adial] 76 72 Pulse Rate [Pulse Oximeter] Respiratory Rate 16 18 Blood Pressure Blood Pressure [Ri ght Arm] 119/57 L 113/63 Blood Pressure [Ri ght Upper Arm] Pulse Oximetry 93 92 Oxygen Delivery Me thod Room Air Room Air Labs/Imaging Labs Labs: No leukocytosis. Imaging Imaging: No new imaging to review. Progress Note:A&P Assessment and plan (1) Stage IV pressure ulcer of left buttock: Status: Acute Assessment and Plan: Patient is a 74-year-old male with evidence of a worsening stage IV pressure ulcer over the left ischial tuberosity. Plan to go to the OR for excisional debridement. Antibiotics per ID and hospitalist. Anticipate the placement of wet-to-dry dressings. Please make patient NPO at midnight tonight for takedown of dressings tomorrow morning and evaluation about any need for additional washouts. Continue to hold Eliquis at this time.
--- NOTE | 2024-12-13 12:35 | W.ANESCHARGE ---
Anesthesia Charges Start Date/Time Anesthesia Start Date: 12/13/24 Anesthesia Start Time: 14:57 Stop Date/Time Anesthesia Stop Date: 12/13/24 Anesthesia Stop Time: 16:25 Summary Extremes of Age - Over 70 or under 1: MDA Coding CPT Codes CPT Codes: ANESTH ANORECTAL SURGERY - 77941 ([id number]) P3 - PATIENT W/SEVERE SYS DISEASE, QK - OLDER WORKER SPECIALIST 2-4 CNCRNT ANES PROC, QX - SUPERVISOR [employer] SVC W/ MD MED DIRECTION Additional Codes: Summary - Extremes of Age - Over 70 or under 1: MDA ([id number])
--- NOTE | 2024-12-13 13:30 | PM.IMPN1 ---
Assessment and Plan Assessment and plan (1) Stage IV pressure ulcer of left buttock: Problem comment: -to OR with Dr. Bailey of General Surgery 12/13, further plans to be made after evaluation in OR -[facility] -Discussed antibiotic plan with Patrick ID - Dr. Blackwood - oral amoxicillin and Bactrim ds sufficient- 2 weeks only. started 12/12 Status: Acute (2) Acute alteration in mental status: Problem comment: -mild -improved with IVF, back to baseline 12/13 Status: Acute (3) Multiple sclerosis: Problem comment: - nonambulatory Status: Acute (4) Neurogenic bowel: Problem comment: - would likely benefit from institution of bowel program, such as adequate hydration (minimum of 2 liters urine output daily), adequate soluble fiber intake (20-30 grams daily), scheduled intermittent digital rectal stimulation (such as 3 times weekly) with scheduled elimination times, stool softeners, etc. Status: Acute (5) Normocytic anemia: Problem comment: - baseline Hgb 9.5-11, normocytic, outpatient f/u Status: Acute (6) Elevated blood sugar: Problem comment: - A1c at last admission 7.6 - SSI, accuchecks Status: Acute (7) Hypertension: Problem comment: - continue home meds with parameters: lisinopril, furosemide, metoprolol, nifedipine Status: Chronic (8) Eason catheter in place: Problem comment: - chronic, replaced in the ED 12/12 Status: Chronic (9) Neurogenic bladder: Problem comment: - indwelling urinary catheter - exchanged 12/12/24 Status: Chronic (10) H/O insertion of cholecystostomy tube: Problem comment: - July 2024 at [facility]. - stable/decompressed gallbladder on CT at admission - unclear plan when lap jazmín is going to be Status: Chronic Plan - per above - back to [facility] when medically appropriate Subjective Date Seen: 12/13/24 Interval history: Ren is a 74 yo male with MS and resultant paraplegia with chronic sacral wounds who presented to the ER last night for concern of recurrent infection in his L ischial wound. Imaging in ER revealed concern for recurrent necrotizing infection, possible early osteomyelitis. He's going to the ER with Dr. Bailey of General Surgery today. Lives at [facility]. On Amoxicillin and Bactrim per Infectious Disease. Exam Narrative: Exam Narrative: Gen: Laying comfortably in bed, nontoxic Cards: RRR, no concerning murmurs R: Breathing comfortably, no wheezing Ab: Soft and nontender : Wound not formally examined as patient heading to OR Const: Vital Signs, click to edit/add: Vital Signs - 24 hr 12/12/24 13:32 12/12/24 13:42 12/12/24 13:43 Temperature 97.1 F L Pulse Rate 70 70 Pulse Rate [Left P ulse Oximeter] Pulse Rate [Left R adial] Pulse Rate [Pulse Oximeter] 74 Respiratory Rate Blood Pressure 118/63 Blood Pressure [Ri ght Arm] Blood Pressure [Ri ght Upper Arm] 118/63 Pulse Oximetry 95 96 [facility] 12/12/24 13:45 12/12/24 14:00 12/12/24 14:15 Temperature Pulse Rate 71 73 72 Pulse Rate [Left P ulse Oximeter] Pulse Rate [Left R adial] Pulse Rate [Pulse Oximeter] Respiratory Rate Blood Pressure Blood Pressure [Ri ght Arm] Blood Pressure [Ri ght Upper Arm] Pulse Oximetry 96 97 98 [facility] 12/12/24 14:58 12/12/24 15:00 12/12/24 15:01 Temperature Pulse Rate 71 70 71 Pulse Rate [Left P ulse Oximeter] Pulse Rate [Left R adial] Pulse Rate [Pulse Oximeter] Respiratory Rate 16 18 Blood Pressure 123/51 L 114/54 L Blood Pressure [Ri ght Arm] Blood Pressure [Ri ght Upper Arm] Pulse Oximetry 96 95 95 [facility] 12/12/24 15:02 12/12/24 15:15 12/12/24 15:30 Temperature Pulse Rate 71 71 72 Pulse Rate [Left P ulse Oximeter] Pulse Rate [Left R adial] Pulse Rate [Pulse Oximeter] Respiratory Rate 21 18 14 Blood Pressure Blood Pressure [Ri ght Arm] Blood Pressure [Ri ght Upper Arm] Pulse Oximetry 96 95 95 [facility] 12/12/24 15:32 12/12/24 15:33 12/12/24 15:45 Temperature Pulse Rate 74 75 Pulse Rate [Left P ulse Oximeter] Pulse Rate [Left R adial] Pulse Rate [Pulse Oximeter] Respiratory Rate 16 11 L 16 Blood Pressure 124/55 L Blood Pressure [Ri ght Arm] Blood Pressure [Ri ght Upper Arm] Pulse Oximetry 96 96 Oxygen Delivery Me thod 12/12/24 16:00 12/12/24 16:02 12/12/24 16:15 Temperature Pulse Rate 74 74 Pulse Rate [Left P ulse Oximeter] Pulse Rate [Left R adial] Pulse Rate [Pulse Oximeter] Respiratory Rate 16 24 20 Blood Pressure 110/82 Blood Pressure [Ri ght Arm] Blood Pressure [Ri ght Upper Arm] Pulse Oximetry 96 96 Oxygen Delivery [facility] 12/12/24 16:30 12/12/24 16:32 12/12/24 16:45 Temperature Pulse Rate Pulse Rate [Left P ulse Oximeter] Pulse Rate [Left R adial] Pulse Rate [Pulse Oximeter] Respiratory Rate 17 16 22 Blood Pressure 112/44 L Blood Pressure [Ri ght Arm] Blood Pressure [Ri ght Upper Arm] Pulse Oximetry [facility] 12[facility]12/24 17:00 12/12/24 17:01 12/12/24 17:35 Temperature 97.6 F Pulse Rate Pulse Rate [Left P ulse Oximeter] 75 Pulse Rate [Left R adial] Pulse Rate [Pulse Oximeter] Respiratory Rate 18 19 20 Blood Pressure 123/50 L Blood Pressure [Ri ght Arm] 136/57 L Blood Pressure [Ri ght Upper Arm] Pulse Oximetry 100 [facility] 12/12/24 17:35 12/12/24 19:00 12/12/24 20:13 Temperature Pulse Rate 76 Pulse Rate [Left P ulse Oximeter] Pulse Rate [Left R adial] Pulse Rate [Pulse Oximeter] Respiratory Rate 20 16 Blood Pressure Blood Pressure [Ri ght Arm] Blood Pressure [Ri ght Upper Arm] Pulse Oximetry 93 [facility] 12/12/24 23:00 12/12/24 23:00 12/12/24 23:30 Temperature Pulse Rate 79 Pulse Rate [Left P ulse Oximeter] 75 Pulse Rate [Left R adial] Pulse Rate [Pulse Oximeter] Respiratory Rate 14 14 Blood Pressure Blood Pressure [Ri ght Arm] Blood Pressure [Ri ght Upper Arm] Pulse Oximetry Oxygen Delivery Mn [facility] 12/13/24 03:00 12/13/24 06:00 12/13/24 07:00 Temperature Pulse Rate 72 Pulse Rate [Left P ulse Oximeter] Pulse Rate [Left R adial] Pulse Rate [Pulse Oximeter] Respiratory Rate 12 14 Blood Pressure Blood Pressure [Ri ght Arm] Blood Pressure [Ri ght Upper Arm] Pulse Oximetry Oxygen Delivery Me thod 12/13/24 07:49 12/13/24 11:40 Temperature 98.3 F 98.1 F Pulse Rate Pulse Rate [Left P ulse Oximeter] Pulse Rate [Left R adial] 76 72 Pulse Rate [Pulse Oximeter] Respiratory Rate 16 18 Blood Pressure Blood Pressure [Ri ght Arm] 119/57 L 113/63 Blood Pressure [Ri ght Upper Arm] Pulse Oximetry 93 92 Oxygen Delivery Me thod Room Air Room Air Labs Labs: Laboratory Results - last 24 hr 12/12/24 12/12/24 12/12/24 13:36 14:30 15:26 WBC 8.32 RBC 4.18 L Hgb 10.7 L Hct 35.3 L MCV 84 MCH 26 MCHC 30 L RDW Coeff of Rey 18.5 H Plt Count 216 Neut % (Auto) 72.0 Lymph % (Auto) 17.1 L [place] % (Auto) 7.7 Eos % (Auto) 2.5 Baso % (Auto) 0.1 Neut # (Auto) 5.99 Lymph # (Auto) 1.40 [place] # (Auto) 0.60 Eos # (Auto) 0.21 Baso # (Auto) 0.01 Abs Immat Gran (auto) 0.05 Imm/Tot Granulo (auto) 0.6 VBG pH VBG pCO2 VBG pO2 VBG HCO3 Sodium 137 Potassium 4.4 Chloride 102 Carbon Dioxide 28 Anion Gap 7 BUN 43 H Creatinine 0.9 Estimated Creat Clear 75.35 Estimated GFR 90 Glucose 187 H Lactate 2.0 H Calcium 9.2 Phosphorus Total Bilirubin 0.7 Direct Bilirubin AST 33 ALT 32 Alkaline Phosphatase 90 C-Reactive Protein 23.3 H Total Protein 7.3 Albumin 3.6 Lipase 60 Urine Color Yellow Urine Appearance Cloudy A Urine pH 6.0 Ur Specific [place] <= 1.005 Urine Protein 1+ A Urine Glucose (UA) Negative Urine Ketones Negative Urine Blood 3+ A Urine Nitrite Negative Urine Bilirubin Negative Urine Urobilinogen 0.2 Ur Leukocyte Esterase 3+ A Urine RBC 10-25 A Urine WBC 50-100 A Ur Squamous Epith Cells None Urine Bacteria Many A SARS-CoV-2 (PCR) Negative SARS-CoV-2 Influenza Type A (PCR) Negative PCR FLU A Influenza Type B (PCR) Negative PCR FLU B Lab Acknowledgement 12/12/24 12/12/24 12/13/24 16:40 18:36 06:03 WBC 9.86 RBC 3.71 L Hgb 9.5 L Hct 31.4 L MCV 85 MCH 26 MCHC 30 L RDW Coeff of Rey 18.7 H Plt Count 223 Neut % (Auto) 80.5 H Lymph % (Auto) 9.5 L [place] % (Auto) 5.5 Eos % (Auto) 4.0 Baso % (Auto) 0.0 Neut # (Auto) 7.90 H Lymph # (Auto) 0.90 [place] # (Auto) 0.50 Eos # (Auto) 0.39 Baso # (Auto) 0.00 Abs Immat Gran (auto) 0.05 Imm/Tot Granulo (auto) 0.5 VBG pH 7.382 VBG pCO2 42 VBG pO2 49.5 H VBG HCO3 25 Sodium 138 Potassium 4.0 Chloride 106 Carbon Dioxide 25 Anion Gap 7 BUN 32 H Creatinine 0.9 Estimated Creat Clear 71.13 Estimated GFR 90 Glucose 216 H Lactate 1.6 Calcium 8.8 Phosphorus 3.1 Total Bilirubin 0.4 Direct Bilirubin 0.4 AST 25 ALT 27 Alkaline Phosphatase 90 C-Reactive Protein 22.3 H Total Protein 6.3 Albumin 3.1 L Lipase Urine Color Urine Appearance Urine pH Ur Specific [place] Urine Protein Urine Glucose (UA) Urine Ketones Urine Blood Urine Nitrite Urine Bilirubin Urine Urobilinogen Ur Leukocyte Esterase Urine RBC Urine WBC Ur Squamous Epith Cells Urine Bacteria SARS-CoV-2 (PCR) Influenza Type A (PCR) Influenza Type B (PCR) Lab Acknowledgement Test Added
--- NOTE | 2024-12-13 15:08 | PC.SOCIAL ---
Discharge planning: Pt lives at [facility] and is on a bed hold. If the pt is ready to discharge over the holiday weekend hospital staff should call [facility] at either #[phone] or #[phone] and keep calling if no one answers. Social work to follow-up as needed.
[2024-12-13] MEDS: LACTATED RINGERS 1000 ML 1,000 ML 75 ML IV ×2 (15:14→23:57)
--- NOTE | 2024-12-13 15:15 | P.IMPN_ITS ---
Assessment and Plan Assessment and plan (1) Stage IV pressure ulcer of left buttock: Problem comment: Surgical debridement yesterday. No surgery today but possibly again tomorrow. Initial antibiotics, amoxicillin and Bactrim will be switched to vancomycin and Zosyn due to concern over possible clinical deterioration and elevated white blood count. Status: Acute (2) Acute alteration in mental status: Problem comment: Improving with treatment of his infection and IV fluids Status: Acute (3) Multiple sclerosis: Problem comment: - nonambulatory Status: Acute (4) Neurogenic bowel: Problem comment: Continue laxatives. Monitor Status: Acute (5) Normocytic anemia: Problem comment: - baseline Hgb 9.5-11, normocytic, outpatient f/u November 18, 2024 had iron of 45, TIBC 195 which are both mildly low. TSAT 23%, low normal. B12 and folate normal. On this admission had high normal ferritin level of 411. Status: Acute (6) Diabetes mellitus: Problem comment: Hemoglobin A1c was 7.6 on 11/16/2024. Consider starting metformin when he is clinically improving and eating Status: Acute (7) Neurogenic bladder: Problem comment: - indwelling urinary catheter - exchanged 12/12/24 Ongoing urinary infection of uncertain clinical significance, now with ESBL Klebsiella pneumonia Status: Chronic (8) H/O insertion of cholecystostomy tube: Problem comment: - July 2024 at [facility]. - stable/decompressed gallbladder on CT at admission - unclear plan when lap jazmín is going to be. Catheter exchange every 3 months due in January 2025 Status: Chronic (9) Obesity: Status: Chronic (10) Hypertension: Problem comment: Blood pressure has been relatively low so chronic antihypertensives have been held. Status: Chronic Plan Continue in hospital for ongoing evaluation management of his acute illness with sacral ulcer with ongoing evidence of infection, hypotension, acute kidney injury, leukocytosis. Possible surgical debridement again tomorrow. Total Time Spent Total Time Spent: Total time spent today is 55 minutes in reviewing records, coordination of care and discussing with patient and other providers ongoing management of sacral ulcers and other medical problems Subjective Date Seen: 12/14/24 Interval history: 74-year-old male admitted to the hospital on 12/12/2024 with altered mental status and weakness. Patient has MS and is wheelchair-bound with paraplegia. He is at [address] [place] [address] with ongoing intermediate care as well as management of sacral ulcers. He was hospitalized here at the and of October with altered mental status and fever. Evaluation at that time showed multiple potential areas of infection including sacral ulcer as well as a he urinary infection with an indwelling Eason catheter and a cholecystostomy tube for cholecystitis. He was treated with antibiotics and did improve. He reports that he has not felt well since that time however. Cultures of his wound in October grew MRSA, ESBL Klebsiella, pansensitive E coli and group B strep. Gallbladder fluid cultures at that time grew ESBL Klebsiella pneumonia as well as relatively sensitive Morganella, Proteus, Pseudomonas. Urine cultures grew Proteus vulgaris resistant to ampicillin cefazolin and cefepime but sensitive to Bactrim jess nolones and Zosyn. He was discharged on Augmentin and Bactrim DS for 10 days. On this admission it was felt that his sacral wound was once again infected. He was taken to the OR again and had this debrided. Urine culture on this admission is growing ESBL Klebsiella pneumonia sensitive to Bactrim and Zosyn. Wound was debrided yesterday by Dr. Bailey. Restarted on amoxicillin and Bactrim per recommendations of ID consult. 12/14/2024: He reports that he had some emesis last night after taking medication. He reports poor appetite this morning. No abdominal pain. He is not aware of a fever. He is having no significant pain. White blood count is up to 17,000 from 10,000 and creatinine is up to 1.3 from 0.9. Exam Narrative: Exam Narrative: He is sleeping but arouses to voice. He is oriented to circumstances. Oropharynx with small airway. Neck is supple without mass or adenopathy. Respirations are clear to auscultation. Breathing is unlabored. Cardiovascular: S1, S2, regular rate and rhythm. Distant heart sounds. Abdomen: Bowel sounds are quite active. Abdomen is soft without tenderness or mass. Biliary drain in the right upper quadrant with small amount of bilious fluid in the bag. Eason catheter in place with moderate amount of urine in the bag. Extremities with 2+ edema bilaterally. He unable to move his right lower extremity. Moves his left foot minimally. Const: Vital Signs, click to edit/add: Vital Signs - 24 hr 12/12/24 15:30 12/12/24 15:32 12/12/24 15:33 Temperature Pulse Rate 72 74 75 Pulse Rate [Left P ulse Oximeter] Pulse Rate [Left R adial] Respiratory Rate 14 16 11 L Blood Pressure 124/55 L Blood Pressure [Ri ght Arm] Pulse Oximetry 95 96 96 [facility] 12/12/24 15:45 12/12/24 16:00 12/12/24 16:02 Temperature Pulse Rate 74 Pulse Rate [Left P ulse Oximeter] Pulse Rate [Left R adial] Respiratory Rate 16 16 24 Blood Pressure 110/82 Blood Pressure [Ri ght Arm] Pulse Oximetry 96 [facility] 12/12/24 16:15 12/12/24 16:30 12/12/24 16:32 Temperature Pulse Rate 74 Pulse Rate [Left P ulse Oximeter] Pulse Rate [Left R adial] Respiratory Rate 20 17 16 Blood Pressure 112/44 L Blood Pressure [Ri ght Arm] Pulse Oximetry 96 Oxygen Delivery [facility] 12/12/24 16:45 12/12/24 17:00 12/12/24 17:01 Temperature Pulse Rate Pulse Rate [Left P ulse Oximeter] Pulse Rate [Left R adial] Respiratory Rate 22 18 19 Blood Pressure 123/50 L Blood Pressure [Ri ght Arm] Pulse Oximetry Oxygen Delivery [facility] 12/12/24 17:35 12/12/24 17:35 12/12/24 19:00 Temperature 97.6 F Pulse Rate Pulse Rate [Left P ulse Oximeter] 75 Pulse Rate [Left R adial] Respiratory Rate 20 20 16 Blood Pressure Blood Pressure [Ri ght Arm] 136/57 L Pulse Oximetry 100 93 Oxygen Delivery [facility] Room Air Room Air 12/12/24 20:13 12/12/24 23:00 12/12/24 23:00 Temperature Pulse Rate 76 79 Pulse Rate [Left P ulse Oximeter] 75 Pulse Rate [Left R adial] Respiratory Rate 14 Blood Pressure Blood Pressure [Ri ght Arm] Pulse Oximetry Oxygen Delivery [facility] 12/12/24 23:30 12/13/24 03:00 12/13/24 06:00 Temperature Pulse Rate Pulse Rate [Left P ulse Oximeter] Pulse Rate [Left R adial] Respiratory Rate 14 12 14 Blood Pressure Blood Pressure [Ri ght Arm] Pulse Oximetry Oxygen Delivery [facility] 12/13/24 07:00 12/13/24 07:49 12/13/24 11:40 Temperature 98.3 F 98.1 F Pulse Rate 72 Pulse Rate [Left P ulse Oximeter] Pulse Rate [Left R adial] 76 72 Respiratory Rate 16 18 Blood Pressure Blood Pressure [Ri ght Arm] 119/57 L 113/63 Pulse Oximetry 93 92 Oxygen Delivery Me thod Room Air Room Air 12/13/24 14:47 12/13/24 14:48 12/13/24 15:00 Temperature 97.3 F L Pulse Rate 69 Pulse Rate [Left P ulse Oximeter] Pulse Rate [Left R adial] 68 68 Respiratory Rate 16 16 Blood Pressure Blood Pressure [Ri ght Arm] 109/47 L Pulse Oximetry 94 Oxygen Delivery Me thod Room Air Labs Labs: Laboratory Results - last 24 hr 12/12/24 12/12/24 12/12/24 13:36 14:30 15:26 WBC RBC Hgb Hct MCV MCH MCHC RDW Coeff of Rey Plt Count Neut % (Auto) Lymph % (Auto) [place] % (Auto) Eos % (Auto) Baso % (Auto) Neut # (Auto) Lymph # (Auto) [place] # (Auto) Eos # (Auto) Baso # (Auto) Abs Immat Gran (auto) Imm/Tot Granulo (auto) VBG pH VBG pCO2 VBG pO2 VBG HCO3 Sodium Potassium Chloride Carbon Dioxide Anion Gap BUN Creatinine Estimated Creat Clear Estimated GFR Glucose Lactate Calcium Phosphorus Total Bilirubin Direct Bilirubin AST ALT Alkaline Phosphatase C-Reactive Protein 23.3 H Total Protein Albumin Urine Color Yellow Urine Appearance Cloudy A Urine pH 6.0 Ur Specific [place] <= 1.005 Urine Protein 1+ A Urine Glucose (UA) Negative Urine Ketones Negative Urine Blood 3+ A Urine Nitrite Negative Urine Bilirubin Negative Urine Urobilinogen 0.2 Ur Leukocyte Esterase 3+ A Urine RBC 10-25 A Urine WBC 50-100 A Ur Squamous Epith Cells None Urine Bacteria Many A SARS-CoV-2 (PCR) Negative SARS-CoV-2 Influenza Type A (PCR) Negative PCR FLU A Influenza Type B (PCR) Negative PCR FLU B Lab Acknowledgement 12/12/24 12/12/24 12/13/24 16:40 18:36 06:03 WBC 9.86 RBC 3.71 L Hgb 9.5 L Hct 31.4 L MCV 85 MCH 26 MCHC 30 L RDW Coeff of Rey 18.7 H Plt Count 223 Neut % (Auto) 80.5 H Lymph % (Auto) 9.5 L [place] % (Auto) 5.5 Eos % (Auto) 4.0 Baso % (Auto) 0.0 Neut # (Auto) 7.90 H Lymph # (Auto) 0.90 [place] # (Auto) 0.50 Eos # (Auto) 0.39 Baso # (Auto) 0.00 Abs Immat Gran (auto) 0.05 Imm/Tot Granulo (auto) 0.5 VBG pH 7.382 VBG pCO2 42 VBG pO2 49.5 H VBG HCO3 25 Sodium 138 Potassium 4.0 Chloride 106 Carbon Dioxide 25 Anion Gap 7 BUN 32 H Creatinine 0.9 Estimated Creat Clear 71.13 Estimated GFR 90 Glucose 216 H Lactate 1.6 Calcium 8.8 Phosphorus 3.1 Total Bilirubin 0.4 Direct Bilirubin 0.4 AST 25 ALT 27 Alkaline Phosphatase 90 C-Reactive Protein 22.3 H Total Protein 6.3 Albumin 3.1 L Urine Color Urine Appearance Urine pH Ur Specific [place] Urine Protein Urine Glucose (UA) Urine Ketones Urine Blood Urine Nitrite Urine Bilirubin Urine Urobilinogen Ur Leukocyte Esterase Urine RBC Urine WBC Ur Squamous Epith Cells Urine Bacteria SARS-CoV-2 (PCR) Influenza Type A (PCR) Influenza Type B (PCR) Lab Acknowledgement Test Added
[2024-12-13] MEDS: PIPERACILLIN/TAZOBACTAM 3.375 GM in 0.9 % SODIUM CHLORIDE Mini-bag 100 ML IVPB (15:20)
--- NOTE | 2024-12-13 16:26 | SUR.OPER ---
measurement obtained by surgeon measuring 7x5x7 of buttock wound
--- NOTE | 2024-12-13 16:28 | P.ANES_ITS ---
Anesthesia Charges Start Date/Time Anesthesia Start Date: 12/13/24 Anesthesia Start Time: 14:57 Stop Date/Time Anesthesia Stop Date: 12/13/24 Anesthesia Stop Time: 16:25 Summary Extremes of Age - Over 70 or under 1: [place] ACCESS DEVELOPER Coding CPT Codes CPT Codes: ANESTH ANORECTAL SURGERY - 79806 ([id number]) P3 - PATIENT W/SEVERE SYS DISEASE, QK - CARPENTER HELPER MAINTENANCE 2-4 CNCRNT ANES PROC, QX - [place] ACCESS DEVELOPER SVC W/ MD MED DIRECTION Additional Codes: Summary - Extremes of Age - Over 70 or under 1: [employer]CROS[employer]FT ACCESS DEVELOPER ([id number])
--- NOTE | 2024-12-13 16:28 | W.ANESCHARGE ---
Anesthesia Charges Start Date/Time Anesthesia Start Date: 12/13/24 Anesthesia Start Time: 14:57 Stop Date/Time Anesthesia Stop Date: 12/13/24 Anesthesia Stop Time: 16:25 Summary Extremes of Age - Over 70 or under 1: GUIDE TOUR Coding CPT Codes CPT Codes: ANESTH ANORECTAL SURGERY - 57792 ([id number]) P3 - PATIENT W/SEVERE SYS DISEASE, QK - DRIVE IN THEATER ATTENDANT 2-4 CNCRNT ANES PROC, QX - GUIDE TOUR SVC W/ MD MED DIRECTION Additional Codes: Summary - Extremes of Age - Over 70 or under 1: GUIDE TOUR ([id number])
--- NOTE | 2024-12-13 16:29 | PM.GSPRC ---
Operative Note Date of procedure: 12/13/24 Pre-op diagnosis: Left ischial tuberosity ulcer with devitalized tissue Post-op diagnosis: Same Type of Procedure: Excisional debridement of left ischial tuberosity ulcer Indications: Patient is a 74-year-old male who presented to the emergency department with concerns for fevers and worsening wounds on his sacrum and ischial tuberosity. On examination the ischial tuberosity wound did have a significant eschar and amount of necrotic tissue. Risks and benefits of debridement were discussed at length the patient today. All questions were addressed with him agreeing to proceed to the OR for debridement. Procedure Description: After discussing the risks and benefits of the procedure, the patient signed informed consent.? The operative site was marked and the patient was brought to the operating room and placed on the operating table in the right lateral position with the assistance of a beanbag.? Care was taken to pad the patient's pressure points.?? The patient was then given sedation by anesthesia.?? The operative site was then prepped and draped in the usual sterile fashion.? A time-out was then performed. Examination of the left ischial tuberosity wound demonstrated an opening measuring 5 x 4 x 5 cm in size with presence of a foul odor and necrotic tissue on the anterior, medial and superior aspect of the wound. Palpation of the wound did demonstrate tunneling down to bone, but with no bone exposed. Using cautery I excised all necrotic tissue down to bleeding subcutaneous fat. Tissue was sent for culture. Again the cavity was palpated in the deepest aspect with underlying bone appreciated, but no exposed bone, soft bone or biopsy performed today. The resulting cavity measured 7 x 5 x 7 cm deep and was irrigated with the Pulsavac and a copious amount of warm saline. Bleeding was controlled with cautery. The wound was then packed with Kerlix soaked in Vashe and a sterile artery dressing applied. ? The patient was then woken and transported to the recovery area in stable condition. ? The patient tolerated the procedure well. Findings: Necrotic tissue and infection of the left ischial tuberosity stage IV pressure ulcer. New wound measurements 7 x 5 x 7 cm Surgeon: Sue Bailey MD Estimated blood loss (mL): 50 Additional Specimen Information: Tissue for culture Condition: stable Disposition: PACU
[2024-12-13] MEDS: OXYCODONE 5 MG TABLET PO (17:39)
--- NOTE | 2024-12-13 18:41 | PC.NURSE ---
Pt doing well today. VSS. Pt had buttock wound debridement done in surgery and returned to the floor at 1620. Pt denies nausea. Tolerated a regular diet at supper time. Pt reported 8/10 pain to the buttock area post-surgery, PRN oxy administered and was effective. Pt tolerated turn and repo Q2H well. Adequate urine output via hoskins. Mild drainage from cholecystostomy site; cleaned with normal saline and applied new split gauze. Surgical dressing remains clean, dry, intact at this time. Resting well in bed, uses call light appropriately.
[2024-12-13] MEDS: ATORVASTATIN CALCIUM 40 MG TABLET 80 MG PO (20:41)
[2024-12-13] MEDS: LATANOPROST 0.005% OPHTH 1 DROP EYE-BOTH (20:44)
[2024-12-13] MEDS: LIDOCAINE 5% PATCH 1 PATCH TRANSDERMA (20:45)
[2024-12-13] MEDS: INSULIN ASPART 100 UNIT/ML SUBCUT (20:45)
[2024-12-14] VITALS (10 sets, daily range): BP systolic 108–127; BP diastolic 45–59; PULSE 78–89; RESP 16–18; TEMP 36.7–37.6; O2SAT 90–91
[2024-12-14] MEDS: HYDROmorphone 0.5 mg/0.5 ml inj IVP ×2 (00:35→06:01)
[2024-12-14] MEDS: ONDANSETRON ODT 4 MG TAB PO ×2 (00:35→06:05)
[2024-12-14 06:36] LABS: Basophils Percent Auto 0.1 % (0.0-3.0); Eosinophils Percent Auto 3.2 % (0.0-7.0); Hematocrit 28.6 % (37.0-53.0); Hemoglobin* 8.5 gm/dL (13.5-17.5); Immature Granulocytes Pct Auto 1.5 %; Lymphocytes Percent Auto 3.6 % (20-44); Mean Corpuscular HGB Conc 30 gm/dL (32-36); Mean Corpuscular Hemoglobin 25 pg (26-34); Mean Corpuscular Volume 85 fL (80-100); Monocytes Percent Auto 2.2 % (0.0-11.0); Neutrophils Percent Auto 89.4 % (42.0-72.0); Platelet Count* 274 K/uL (140-440); RDW Coefficient of Variation % 18.9 % (11.5-15.5); Red Blood Count 3.36 m/uL (4.30-5.90); White Blood Count* 17.12 K/uL (4.50-11.00)
[2024-12-14 06:41] LABS: Chloride* 107 mmol/L (96-114)
[2024-12-14 06:42] LABS: Potassium* 4.7 mmol/L (3.6-5.1); Sodium* 138 mmol/L (135-149)
--- NOTE | 2024-12-14 06:44 | PM.GSPN ---
Subjective Subjective Date Seen: 12/14/24 Interval history: Patient is doing okay this morning he. He was able to get some rest. He does have a lot of pain in his wound on the left side, this is being controlled with pain medicine. Reports some nausea. Has not vomited. No other concerns. Exam Narrative: Exam Narrative: General: Alert and oriented, nontoxic : Chronic Eason in place. Dressings removed from the left tissue tuberosity. The stage IV ulcer wound cavity shows moeller appearing fat on the anterior, lateral and medial aspect. Healthy bleeding fat posterior and superior. No obvious necrotic tissue. No purulent fluid. No undrained pockets infection. Const: Vital Signs, click to edit/add: Vital Signs - 24 hr 12/13/24 07:00 12/13/24 07:49 12/13/24 11:40 Temperature 98.3 F 98.1 F Pulse Rate 72 Pulse Rate [Left P ulse Oximeter] Pulse Rate [Left R adial] 76 72 Respiratory Rate 16 18 Blood Pressure Blood Pressure [Ri ght Arm] 119/57 L 113/63 Pulse Oximetry 93 92 [facility] Room Air 12/13/24 14:47 12/13/24 14:48 12/13/24 15:00 Temperature 97.3 F L Pulse Rate 69 Pulse Rate [Left P ulse Oximeter] Pulse Rate [Left R adial] 68 68 Respiratory Rate 16 16 Blood Pressure Blood Pressure [Ri ght Arm] 109/47 L Pulse Oximetry 94 [facility] 12/13/24 16:20 12/13/24 16:30 12/13/24 16:45 Temperature 97.2 F L 98.6 F 98.6 F Pulse Rate 68 68 64 Pulse Rate [Left P ulse Oximeter] Pulse Rate [Left R adial] Respiratory Rate 16 16 16 Blood Pressure 107/51 L 109/49 L 111/50 L Blood Pressure [Ri ght Arm] Pulse Oximetry 91 90 92 Oxygen [facility] Room Air Room Air 12/13/24 17:00 12/13/24 17:15 12/13/24 19:00 Temperature 98.6 F 98.6 F 98 F Pulse Rate 65 64 Pulse Rate [Left P ulse Oximeter] 79 Pulse Rate [Left R adial] Respiratory Rate 16 16 16 Blood Pressure 115/47 L 109/53 L Blood Pressure [Ri ght Arm] 118/60 Pulse Oximetry 93 96 94 Oxygen Delivery Me thod Room Air Room Air Room Air 12/13/24 21:07 12/13/24 22:25 12/13/24 22:25 Temperature 98 F 98.6 F Pulse Rate 64 Pulse Rate [Left P ulse Oximeter] 85 Pulse Rate [Left R adial] Respiratory Rate 16 16 16 Blood Pressure 109/53 L Blood Pressure [Ri ght Arm] 97/56 L Pulse Oximetry 94 91 Oxygen Delivery Me thod Room Air Room Air 12/13/24 23:00 12/14/24 02:44 12/14/24 06:00 Temperature 99.6 F Pulse Rate 64 Pulse Rate [Left P ulse Oximeter] 86 Pulse Rate [Left R adial] Respiratory Rate 16 16 Blood Pressure Blood Pressure [Ri ght Arm] 122/48 L Pulse Oximetry 90 Oxygen Delivery Me thod Room Air Progress Note:A&P Assessment and plan (1) Stage IV pressure ulcer of left buttock: Status: Acute Assessment and Plan: Patient is a 74-year-old male with a stage IV pressure ulcer over the left ischial tuberosity. Patient is now postop day 1 for excisional debridement. The dressings were taken down at the bedside this morning. He does have some moeller appearing fat in approximately 80% of the wound bed. No obvious areas of necrosis. No undrained infection. Recommend that he have b.i.d. dressing changes today of Vashe soaked Kerlix and an outer ABD. More often as needed for contamination. Will plan for re-evaluation in the morning. He may benefit from an additional debridement and washout in the operating room. -NPO at midnight -b.i.d. Wet-to-dry dressing changes of Vashe soaked Kerlix -antibiotics per hospitalist and ID
[2024-12-14 06:45] LABS: Anion Gap 6 mEq/L (7-15); Blood Urea Nitrogen* 28 mg/dL (7-30); Calcium* 8.9 mg/dL (8.4-10.6); Carbon Dioxide* 25 mmol/L (20-32); Creatinine* 1.3 mg/dL (0.5-1.5); Est. Creatinine Clearance* 54.72; Estimated Glomerular Filt Rate 58 ml/min; Glucose* 146 mg/dL (60-115)
--- NOTE | 2024-12-14 06:48 | PC.NURSE ---
Shift note: Patient complained of feeling cold at the start of the shift at 1930. Extra warm blanket given. Patient had 1x emesis at 2130 measured about 30ml yellowish gastric content containing food particles. Zofran given. 2x pain given. 1 at 0030 and the other before dressing change this morning. Dressing changed at 0630. Attempted to turn and reposition Q2h but patient declined most of the attempt. Vitally stable.
[2024-12-14 06:52] LABS: Slide Review Reflex No
--- NOTE | 2024-12-14 09:46 | PC.PHA ---
Vancomycin consult note: Indication for vancomycin: [WOUND] Age: [74] Height: [183 CM] Weight: [113 KG] Most recent SCr: [1.3] Estimated CrCL: [55] Recommended dose and frequency: [1.75 GM IV Q24 HR AUC = 465] to obtain an estimated AUC/STACEY of 400-600 mcg*hr/m Additional comment: Scr increased 0.4 from yesterday so I went with a q24 hr schedule, also on pip/tazo.
[2024-12-14] MEDS: allopurinoL 100 MG TABLET PO (09:55)
[2024-12-14] MEDS: ACETAMINOPHEN 500 MG TABLET 1000 MG PO ×3 (09:55→21:01)
[2024-12-14] MEDS: ASPIRIN 81 MG TABLET EC PO (09:56)
[2024-12-14] MEDS: SENNOSIDES/DOCUSATE TABLET 2 TAB PO ×2 (09:56→21:03)
[2024-12-14] MEDS: POTASSIUM CHLORIDE 10 MEQ CAPSULE ER PO ×2 (09:57→18:30)
[2024-12-14] MEDS: BACLOFEN 10 MG TABLET PO ×2 (09:57→21:02)
[2024-12-14] MEDS: OMEPRAZOLE 20 MG CAPSULE DR 40 MG PO ×2 (09:57→21:02)
[2024-12-14] MEDS: OXYCODONE 5 MG TABLET PO ×2 (09:58→16:33)
[2024-12-14] MEDS: polyethylene glycoL 3350 17 GM PACK PO (10:00)
[2024-12-14] MEDS: SODIUM CHLORIDE 0.9 % (FLUSH) 10 ML SYRINGE 5 ML IVF ×2 (10:00→21:09)
[2024-12-14] MEDS: CLOTRIMAZOLE 1 % CREAM 1 APPLIC TOPICAL ×2 (10:01→21:00)
[2024-12-14] MEDS: PIPERACILLIN/TAZOBACTAM 3.375 GM in 0.9 % SODIUM CHLORIDE Mini-bag 100 ML IVPB ×3 (10:02→21:09)
[2024-12-14] MEDS: INSULIN ASPART 100 UNIT/ML SUBCUT (11:53)
[2024-12-14] MEDS: VANCOMYCIN 2 GM/400 ML 2 GM/400 ML PIGGYBACK IVPB (11:55)
[2024-12-14] MEDS: 0.9 % SODIUM CHLORIDE 250 ml IV (12:04)
--- NOTE | 2024-12-14 14:53 | PC.NURSE ---
Pt doing well today. VSS. Pain controlled with PRN medications and repositioning. Pt was repositioned Q2H and tolerated well, sitting in recliner chair at this time. Pt has a poor appetite, ensure protein drink provided, tolerating well. No nausea or vomiting on this shift. Bekah nurse at [facility] called for a nurse to nurse update at 1115. Adequate output from hoskins. Resting well at this time.
[2024-12-14] MEDS: LACTATED RINGERS 1000 ML 1,000 ML 75 ML IV (19:31)
[2024-12-14] MEDS: LIDOCAINE 5% PATCH 1 PATCH TRANSDERMA (21:00)
[2024-12-14] MEDS: ATORVASTATIN CALCIUM 40 MG TABLET 80 MG PO (21:01)
[2024-12-14] MEDS: LATANOPROST 0.005% OPHTH 1 DROP EYE-BOTH (21:13)
[2024-12-15] VITALS (10 sets, daily range): BP systolic 127–143; BP diastolic 49–57; PULSE 74–91; RESP 16–18; TEMP 36.4–37.2; O2SAT 91–94
[2024-12-15] MEDS: PIPERACILLIN/TAZOBACTAM 3.375 GM in 0.9 % SODIUM CHLORIDE Mini-bag 100 ML IVPB ×2 (04:01→09:35)
--- NOTE | 2024-12-15 06:40 | PC.NURSE ---
Shift note: Patient was ceiling lift from recliner to bed at 1915 with A2. Turn and reposition Q2h upon request. Patient appeared confused at 2130. Battled with staff during reposition. Was back to baseline after some hours sleep. During assessment at 0100, patient responded adequately with staff per baseline. Cholecystectomy bag drained. About 30ml of thick fluid with a strong rotten odor drained. Patient appeared stable vitally. However, he continues to yearn intermittently and report weakness. Dressing at the buttock appeared clean and dry.
[2024-12-15 07:05] LABS: Eosinophils Absolute Auto 0.68 K/uL (0.00-0.50); Eosinophils Percent Auto 6.9 % (0.0-7.0); Hematocrit 25.5 % (37.0-53.0); Immature Granulocytes Abs Auto 0.09 K/uL (0.00-0.30); Immature Granulocytes Pct Auto 0.9 %; Lymphocytes Percent Auto 9.2 % (20-44); Mean Corpuscular HGB Conc 30 gm/dL (32-36); Mean Corpuscular Hemoglobin 26 pg (26-34); Mean Corpuscular Volume 86 fL (80-100); Monocytes Percent Auto 4.2 % (0.0-11.0); Neutrophils Percent Auto 78.8 % (42.0-72.0); Platelet Count* 232 K/uL (140-440); RDW Coefficient of Variation % 18.9 % (11.5-15.5); Red Blood Count 2.98 m/uL (4.30-5.90); White Blood Count* 9.86 K/uL (4.50-11.00)
[2024-12-15 07:10] LABS: Hemoglobin* 7.6 gm/dL (13.5-17.5); Slide Review Reflex No
[2024-12-15 07:26] LABS: Albumin* 2.9 g/dL (3.3-5.0)
[2024-12-15 07:27] LABS: Chloride* 108 mmol/L (96-114); Potassium* 4.2 mmol/L (3.6-5.1); Sodium* 138 mmol/L (135-149)
[2024-12-15 07:29] LABS: Blood Urea Nitrogen* 23 mg/dL (7-30); Est. Creatinine Clearance* 71.13; Estimated Glomerular Filt Rate 79 ml/min
[2024-12-15 07:30] LABS: Alanine Aminotransferase* 20 U/L (4-50); Alkaline Phosphatase* 83 U/L (40-150); Anion Gap 5 mEq/L (7-15); Aspartate Amino Transferase* 23 U/L (12-35); Bilirubin Direct* 0.4 mg/dL (0.0-0.5); Bilirubin Total* 0.4 mg/dL (0.1-1.5); Calcium* 8.7 mg/dL (8.4-10.6); Carbon Dioxide* 25 mmol/L (20-32); Glucose* 148 mg/dL (60-115)
[2024-12-15 07:44] LABS: C Reactive Protein* 14.5 mg/dL (0.5-1.0)
[2024-12-15] MEDS: polyethylene glycoL 3350 17 GM PACK PO (09:37)
[2024-12-15] MEDS: SODIUM CHLORIDE 0.9 % (FLUSH) 10 ML SYRINGE 5 ML IVF ×2 (09:41→20:23)
[2024-12-15] MEDS: SENNOSIDES/DOCUSATE TABLET 2 TAB PO ×2 (09:42→20:27)
[2024-12-15] MEDS: OXYCODONE 5 MG TABLET PO ×2 (09:42→20:15)
[2024-12-15] MEDS: BACLOFEN 10 MG TABLET PO ×2 (09:42→20:19)
[2024-12-15] MEDS: allopurinoL 100 MG TABLET PO (09:42)
[2024-12-15] MEDS: METOPROLOL SUCCINATE (XL) 50 MG TAB PO (09:43)
[2024-12-15] MEDS: OMEPRAZOLE 20 MG CAPSULE DR 40 MG PO ×2 (09:43→20:14)
[2024-12-15] MEDS: ACETAMINOPHEN 500 MG TABLET 1000 MG PO ×3 (09:43→21:21)
[2024-12-15] MEDS: ASPIRIN 81 MG TABLET EC PO (09:43)
[2024-12-15] MEDS: CLOTRIMAZOLE 1 % CREAM 1 APPLIC TOPICAL ×2 (09:44→20:20)
[2024-12-15] MEDS: LACTATED RINGERS 1000 ML 1,000 ML 75 ML IV (09:45)
[2024-12-15] MEDS: POTASSIUM CHLORIDE 10 MEQ CAPSULE ER PO ×2 (10:16→17:56)
--- NOTE | 2024-12-15 10:16 | PM.GSPN ---
Subjective Subjective Date Seen: 12/15/24 Interval history: Patient is doing okay this morning. He does seem tired and is feeling thirsty this morning. He did have some confusion overnight. He is alert this morning and oriented. Exam Narrative: Exam Narrative: General: Alert and oriented, nontoxic : Left ischial tuberosity dressings removed. Hilton fat present on the anterior aspect of the wound, granulation tissue in the remaining areas. No areas of necrosis. No active infection. The fat on the anterior aspect was sharply debrided at bedside. No surrounding erythema or induration. Const: Vital Signs, click to edit/add: Vital Signs - 24 hr 12/14/24 11:49 12/14/24 15:54 12/14/24 17:00 Temperature 98.0 F 98.8 F Pulse Rate 79 Pulse Rate [Left P ulse Oximeter] 78 Pulse Rate [Left R adial] 81 Respiratory Rate 18 16 Blood Pressure [Ri ght Arm] 108/45 L 113/49 L Pulse Oximetry 90 91 Oxygen Delivery Me thod Room Air Room Air 12/14/24 19:00 12/14/24 22:49 12/14/24 22:49 Temperature 99.2 F 99.2 F Pulse Rate Pulse Rate [Left P ulse Oximeter] 88 86 86 Pulse Rate [Left R adial] Respiratory Rate 16 16 16 Blood Pressure [Ri ght Arm] 123/53 L 120/59 L Pulse Oximetry 90 90 Oxygen Delivery Me thod Room Air Room Air 12/14/24 23:00 12/14/24 23:30 12/15/24 02:17 Temperature Pulse Rate 89 Pulse Rate [Left P ulse Oximeter] 89 Pulse Rate [Left R adial] Respiratory Rate 18 18 Blood Pressure [Ri ght Arm] Pulse Oximetry 93 Oxygen Delivery Me thod Room Air 12/15/24 05:29 12/15/24 09:47 Temperature 97.7 F Pulse Rate Pulse Rate [Left P ulse Oximeter] 83 Pulse Rate [Left R adial] Respiratory Rate 18 16 Blood Pressure [Ri ght Arm] 128/57 L Pulse Oximetry 94 Oxygen Delivery Me thod Room Air Labs/Imaging Labs Labs: Leukocytosis trending down and normal this morning. He does have a drop in his hemoglobin 7.6, no bleeding present in the wound. Progress Note:A&P Assessment and plan (1) Stage IV pressure ulcer of left buttock: Status: Acute Assessment and Plan: Patient is a 74-year-old male with a stage IV pressure ulcer over the left ischial tuberosity. Patient is now postop day 2 for excisional debridement. Unfortunately the patient did not get dressing changes yesterday other than the 1 performed by myself in the morning. The hilton appearing fat in the wound bed is still present on the anterior aspect, there is evidence of granulation tissue within the remaining areas. The hilton fat which is present and about 40% of the wound in total. These areas were sharply debrided with yellow fat present underneath, no significant bleeding was seen. I spoke with nursing today and recommend that he have t.i.d. dressing changes today of Vashe soaked Kerlix and an outer ABD. More often as needed for contamination. Will plan for another dressing change by myself tomorrow morning. -okay for regular diet, no further need for operative debridements at this time. -t.i.d. Wet-to-dry dressing changes of Vashe soaked Kerlix -antibiotics per hospitalist and ID
[2024-12-15] MEDS: APIXABAN 5 MG TABLET PO ×2 (10:17→20:15)
--- NOTE | 2024-12-15 10:33 | P.IMPN_ITS ---
Assessment and Plan Assessment and plan (1) Stage IV pressure ulcer of left buttock: Problem comment: Surgical debridement yesterday. Surgical debridement on December 13 and bedside debridement on December 15. Initial antibiotics, amoxicillin and Bactrim will be switched to vancomycin and Zosyn due to concern over possible clinical deterioration. December 15 appears better so switch back to amoxicillin and Bactrim Status: Acute (2) Acute alteration in mental status: Problem comment: Improving with treatment of his infection and IV fluids. Episode of confusion last night consistent with a mild limited hospital acquired delirium Status: Acute (3) Diabetes mellitus: Problem comment: Hemoglobin A1c was 7.6 on 11/16/2024. Start metformin Status: Acute (4) Lymphedema: Problem comment: Chronic, recommended treatment: compression wraps Status: Acute (5) Multiple sclerosis: Problem comment: - nonambulatory Status: Acute (6) Neurogenic bowel: Problem comment: Continue laxatives. Monitor Status: Acute (7) Normocytic anemia: Problem comment: - baseline Hgb 9.5-11, normocytic, outpatient f/u. Monitor for acute blood loss requiring urgent evaluation November 18, 2024 had iron of 45, TIBC 195 which are both mildly low. TSAT 23%, low normal. B12 and folate normal. On this admission had high normal ferritin level of 411. Status: Acute (8) Hypertension: Problem comment: Blood pressure has been relatively low so chronic antihypertensives have been held. Status: Chronic (9) H/O insertion of cholecystostomy tube: Problem comment: - July 2024 at [facility]. - stable/decompressed gallbladder on CT at admission - unclear plan when lap jazmín is going to be. Catheter exchange every 3 months due in January 2025 Status: Chronic (10) Obesity: Status: Chronic Plan Continue in hospital for wound care, treatment of acute illness and infection, management of heart failure, hypotension and diabetes Total Time Spent Total Time Spent: Total time spent today is 60 minutes in coordination of care and discussing with patient and other providers ongoing management of multiple problems noted above Subjective Date Seen: 12/15/24 Interval history: 74-year-old male admitted to the hospital on 12/12/[address] atus and weakness. Patient has MS and is wheelchair-bound with paraplegia. He is at [address] [place] [address] with ongoing senior care care as well as management of sacral ulcers. He was hospitalized here at the [facility] October with altered mental status and fever. Evaluation at that time showed multiple potential areas of infection including sacral ulcer as well as a he urinary infection with an indwelling Eason catheter and a cholecystostomy tube for cholecystitis. He was treated with antibiotics and did improve. He reports that he has not felt well since that time however. Cultures of his wound in October grew MRSA, ESBL Klebsiella, pansensitive E coli and group B strep. Gallbladder fluid cultures at that time grew ESBL Klebsiella pneumonia as well as relatively sensitive Morganella, Proteus, Pseudomonas. Urine cultures grew Proteus vulgaris resistant to ampicillin cefazolin and cefepime but sensitive to Bactrim quinolones and Zosyn. He was discharged on Augmentin and Bactrim DS for 10 days. On this admission it was felt that his sacral wound was once again infected. He was taken to the OR again and had this debrided. Urine culture on this admission is growing ESBL Klebsiella pneumonia sensitive to Bactrim and Zosyn. Wound was debrided yesterday by Dr. Bailey. Restarted on amoxicillin and Bactrim per recommendations of ID consult. 12/14/2024: He reports that he had some emesis last night after taking medication. He reports poor appetite this morning. No abdominal pain. He is not aware of a fever. He is having no significant pain. White blood count is up to 17,000 from 10,000 and creatinine is up to 1.3 from 0.9. 12/15/2024: Patient reports no new concerns today. He reports no breathing problems. No significant problems with pain. He reports decreased appetite. He recalls having some delusions confusion during the night which he says caused him to get agitated and upset with the nurse. He reports that has resolved. Dr. Bailey did bedside debridement of his ulcer from his left buttock cheek. Exam Narrative: Exam Narrative: He is alert and appears in no distress. He is oriented to his circumstances. Respirations are clear to auscultation. Cardiovascular: S1, S2, regular rate and rhythm. Abdomen is soft. He has minimal diffuse tenderness. External genitalia with Eason catheter in place. Urine is draining clear. Biliary drainage noted. Lower extremities with 1+ edema bilaterally. Left buttock ulcer as well as ulcers over his posterior iliac crests are noted. The left buttock is quite deep and has 5th accumulation of fibrin with surrounding granulation tissue being relatively healthy Const: Vital Signs, click to edit/add: Vital Signs - 24 hr 12/14/24 11:49 12/14/24 15:54 12/14/24 17:00 Temperature 98.0 F 98.8 F Pulse Rate 79 Pulse Rate [Left P ulse Oximeter] 78 Pulse Rate [Left R adial] 81 Respiratory Rate 18 16 Blood Pressure [Ri ght Arm] 108/45 L 113/49 L Pulse Oximetry 90 91 Oxygen Delivery Me thod Room Air Room Air 12/14/24 19:00 12/14/24 22:49 12/14/24 22:49 Temperature 99.2 F 99.2 F Pulse Rate Pulse Rate [Left P ulse Oximeter] 88 86 86 Pulse Rate [Left R adial] Respiratory Rate 16 16 16 Blood Pressure [Ri ght Arm] 123/53 L 120/59 L Pulse Oximetry 90 90 Oxygen Delivery Me thod Room Air Room Air 12/14/24 23:00 12/14/24 23:30 12/15/24 02:17 Temperature Pulse Rate 89 Pulse Rate [Left P ulse Oximeter] 89 Pulse Rate [Left R adial] Respiratory Rate 18 18 Blood Pressure [Ri ght Arm] Pulse Oximetry 93 Oxygen Delivery Me thod Room Air 12/15/24 05:29 12/15/24 09:47 Temperature 97.7 F Pulse Rate Pulse Rate [Left P ulse Oximeter] 83 Pulse Rate [Left R adial] Respiratory Rate 18 16 Blood Pressure [Ri ght Arm] 128/57 L Pulse Oximetry 94 Oxygen Delivery Me thod Room Air Documenting provider has reviewed patient's vital signs: yes Labs Labs: Laboratory Results - last 24 hr 12/15/24 06:03 WBC 9.86 RBC 2.98 L Hgb 7.6 L* Hct 25.5 L MCV 86 MCH 26 MCHC 30 L RDW Coeff of Rey 18.9 H Plt Count 232 Neut % (Auto) 78.8 H Lymph % (Auto) 9.2 L [place] % (Auto) 4.2 Eos % (Auto) 6.9 Baso % (Auto) 0.0 Neut # (Auto) 7.80 H Lymph # (Auto) 0.90 [place] # (Auto) 0.40 Eos # (Auto) 0.68 H Baso # (Auto) 0.00 Abs Immat Gran (auto) 0.09 Imm/Tot Granulo (auto) 0.9 Sodium 138 Potassium 4.2 Chloride 108 Carbon Dioxide 25 Anion Gap 5 L BUN 23 Creatinine 1.0 Estimated Creat Clear 71.13 Estimated GFR 79 Glucose 148 H Calcium 8.7 Total Bilirubin 0.4 Direct Bilirubin 0.4 AST 23 ALT 20 Alkaline Phosphatase 83 C-Reactive Protein 14.5 H Total Protein 6.0 Albumin 2.9 L
[2024-12-15] MEDS: METFORMIN ER 500 MG PO (13:01)
[2024-12-15] MEDS: AMOXICILLIN 250 MG CAPSULE 500 MG PO ×2 (14:14→20:26)
--- NOTE | 2024-12-15 14:38 | PC.NURSE ---
Pt doing well today. VSS. Pain is controlled with scheduled and PRN pain medications, as well as repositioning. Pt up in chair today and tolerating well. Appetite is much better today, tolerating regular diet. Buttock dressing change was done by Dr. Bailey this morning. Nurse performed dressing change at 1430, pt tolerated fairly well. nurse Bekah from [facility] was updated on pt's status at 1025. Pt is resting well at this time.
[2024-12-15] MEDS: INSULIN ASPART 100 UNIT/ML SUBCUT ×2 (17:56→20:22)
[2024-12-15] MEDS: LIDOCAINE 5% PATCH 1 PATCH TRANSDERMA (20:13)
[2024-12-15] MEDS: ATORVASTATIN CALCIUM 40 MG TABLET 80 MG PO (20:15)
[2024-12-15] MEDS: BACLOFEN 10 MG TABLET 5 MG PO (20:16)
[2024-12-15] MEDS: LATANOPROST 0.005% OPHTH 1 DROP EYE-BOTH (20:20)
[2024-12-15] MEDS: SULFA/TRIMETHOPRIM 800/160 1 TAB PO (20:27)
[2024-12-15] MEDS: 0.9 % SODIUM CHLORIDE 250 ml IV (21:05)
--- NOTE | 2024-12-15 22:51 | PC.NURSE ---
Patient received TID dressing changes as ordered today. Patient utilizing scheduled and prn medications as well as repositioning for pain management. Patient up with lift and requires help with eating. Patients blood sugars completed as ordered.
[2024-12-16] VITALS (11 sets, daily range): BP systolic 134–144; BP diastolic 54–62; PULSE 69–74; RESP 16–18; TEMP 36.6–37.1; O2SAT 90–96
--- NOTE | 2024-12-16 06:18 | PC.NURSE ---
Pt alert and oriented to self and place but struggles with time. Afebrile. Pt reports 6/10 generalized pain, managed with PRN medications. Pt?s hoskins catheter is patent and draining. Pt was turned and repositioned throughout night. ? ? ?
[2024-12-16 06:45] LABS: Basophils Absolute Auto 0.01 K/uL (0.00-0.30); Basophils Percent Auto 0.1 % (0.0-3.0); Eosinophils Absolute Auto 0.52 K/uL (0.00-0.50); Eosinophils Percent Auto 6.7 % (0.0-7.0); Hematocrit 25.6 % (37.0-53.0); Immature Granulocytes Abs Auto 0.13 K/uL (0.00-0.30); Immature Granulocytes Pct Auto 1.7 %; Lymphocytes Percent Auto 16.3 % (20-44); Mean Corpuscular HGB Conc 30 gm/dL (32-36); Mean Corpuscular Hemoglobin 26 pg (26-34); Mean Corpuscular Volume 86 fL (80-100); Monocytes Percent Auto 6.3 % (0.0-11.0); Neutrophils Absolute Auto 5.38 K/uL (1.7-7.0); Neutrophils Percent Auto 68.9 % (42.0-72.0); Platelet Count* 236 K/uL (140-440); RDW Coefficient of Variation % 18.6 % (11.5-15.5); Red Blood Count 2.98 m/uL (4.30-5.90)
[2024-12-16 06:55] LABS: Chloride* 108 mmol/L (96-114); Sodium* 138 mmol/L (135-149)
[2024-12-16 06:59] LABS: Anion Gap 4 mEq/L (7-15); Blood Urea Nitrogen* 15 mg/dL (7-30); Carbon Dioxide* 26 mmol/L (20-32); Creatinine* 0.8 mg/dL (0.5-1.5); Est. Creatinine Clearance* 71.13; Estimated Glomerular Filt Rate 93 ml/min; Glucose* 146 mg/dL (60-115)
[2024-12-16 07:00] LABS: Hemoglobin* 7.6 gm/dL (13.5-17.5)
[2024-12-16 07:01] LABS: C Reactive Protein* 6.5 mg/dL (0.5-1.0)
[2024-12-16] MEDS: METFORMIN ER 500 MG PO ×2 (07:48→17:40)
[2024-12-16] MEDS: POTASSIUM CHLORIDE 10 MEQ CAPSULE ER PO ×2 (07:48→17:39)
[2024-12-16 09:23] LABS: Immature Reticulocyte Fraction 31.9 % (2.3-13.4); Reticulocyte Hemoglobin Equivi 19.4 pg (29.0-35.0); Reticulocyte Percent 2.6 % (0.5-2.0); Reticulocytes Absolute 0.08 # (0.03-0.08)
[2024-12-16] MEDS: polyethylene glycoL 3350 17 GM PACK PO (09:48)
[2024-12-16] MEDS: CLOTRIMAZOLE 1 % CREAM 1 APPLIC TOPICAL ×2 (09:49→21:03)
[2024-12-16] MEDS: SENNOSIDES/DOCUSATE TABLET 2 TAB PO (09:49)
[2024-12-16] MEDS: ASPIRIN 81 MG TABLET EC PO (09:50)
[2024-12-16] MEDS: OMEPRAZOLE 20 MG CAPSULE DR 40 MG PO ×2 (09:51→20:59)
[2024-12-16] MEDS: ACETAMINOPHEN 500 MG TABLET 1000 MG PO ×3 (09:51→20:59)
[2024-12-16] MEDS: BACLOFEN 10 MG TABLET PO ×2 (09:51→21:02)
[2024-12-16] MEDS: AMOXICILLIN 250 MG CAPSULE 500 MG PO ×3 (09:52→21:03)
[2024-12-16] MEDS: METOPROLOL SUCCINATE (XL) 50 MG TAB PO (09:52)
[2024-12-16] MEDS: SULFA/TRIMETHOPRIM 800/160 1 TAB PO ×2 (09:53→20:58)
[2024-12-16] MEDS: APIXABAN 5 MG TABLET PO ×2 (09:56→21:02)
[2024-12-16] MEDS: allopurinoL 100 MG TABLET PO (09:56)
[2024-12-16] MEDS: FUROSEMIDE 40 MG TABLET PO (09:57)
[2024-12-16] MEDS: SODIUM CHLORIDE 0.9 % (FLUSH) 10 ML SYRINGE 5 ML IVF ×2 (09:57→21:04)
--- NOTE | 2024-12-16 10:15 | P.GSPN_ITS ---
Subjective Subjective Date Seen: 12/16/24 Interval history: Patient is doing okay this morning. He does feel like the pain on his left buttock is improving. He tolerated dressing changes without difficulty. No other concerns. Exam Narrative: Exam Narrative: General: Alert and oriented, nontoxic : Left ischial tuberosity dressings removed. Hilton fat with some spotty areas of necrosis present on the anterior aspect of the wound, granulation tissue in the remaining areas. No active infection. The fat on the anterior aspect was sharply debrided at bedside to bleeding fat. No surrounding erythema or induration. Const: Vital Signs, click to edit/add: Vital Signs - 24 hr 12/15/24 13:07 12/15/24 15:00 12/15/24 15:00 Temperature 97.6 F 98.5 F Pulse Rate Pulse Rate [Left P ulse Oximeter] 84 84 Pulse Rate [Left R adial] 89 89 Respiratory Rate 16 17 17 Blood Pressure [Ri ght Arm] 127/49 L 137/52 L Pulse Oximetry 93 91 [facility] 12/15/24 15:00 12/15/24 19:00 12/15/24 21:35 Temperature 99.0 F Pulse Rate 89 Pulse Rate [Left P ulse Oximeter] 91 84 Pulse Rate [Left R adial] Respiratory Rate 18 Blood Pressure [Ri ght Arm] 141/57 H Pulse Oximetry 92 [facility] 12/15/24 21:35 12/15/24 22:30 12/15/24 23:30 Temperature 98.1 F Pulse Rate 80 Pulse Rate [Left P ulse Oximeter] 84 Pulse Rate [Left R adial] Respiratory Rate 18 16 Blood Pressure [Ri ght Arm] 143/53 H Pulse Oximetry 92 [facility] 12/16/24 02:02 12/16/24 04:55 12/16/24 07:20 Temperature Pulse Rate 70 Pulse Rate [Left P ulse Oximeter] Pulse Rate [Left R adial] Respiratory Rate 16 16 Blood Pressure [Ri ght Arm] Pulse Oximetry Oxygen Delivery [facility] 12/16/24 07:51 12/16/24 08:15 Temperature 98.1 F Pulse Rate Pulse Rate [Left P ulse Oximeter] 69 69 Pulse Rate [Left R adial] Respiratory Rate 18 18 Blood Pressure [Ri ght Arm] 134/54 L Pulse Oximetry 94 Oxygen Delivery Me thod Room Air Labs/Imaging Labs Labs: No leukocytosis. Hemoglobin low at 7.6. CRP continues to trend down at 6.5 this morning Imaging Imaging: No new imaging Progress Note:A&P Assessment and plan (1) Stage IV pressure ulcer of left buttock: Status: Acute Assessment and Plan: Patient is a 74-year-old male with a stage IV pressure ulcer over the left ischial tuberosity. Patient is now postop day 3 for excisional debridement. He continues to require daily debridements to the anterior aspect of the wound bed. Recommend he continue with t.i.d. dressings while inpatient. Continue with Vashe soaked Kerlix and outer ABD dressing. Anticipate discharge tomorrow to [facility]. Patient will continued with his scheduled wound clinic appointment, next on Monday12/18/2024. The hope would be eventually transitioning to a wound VAC, however he may continue to require additional bedside debridements prior to that placement.
[2024-12-16 11:31] LABS: Slide Review Reflex No
[2024-12-16 12:22] LABS: Fecal Occult Blood* Positive (Negative)
--- NOTE | 2024-12-16 12:42 | PM.IMPN1 ---
Assessment and Plan Assessment and plan (1) Stage IV pressure ulcer of left buttock: Problem comment: Surgical debridement yesterday. Surgical debridement on December 13 and bedside debridement on December 15. Initial antibiotics, amoxicillin and Bactrim will be switched to vancomycin and Zosyn due to concern over possible clinical deterioration. December 15 appears better so switch back to amoxicillin and Bactrim. Continue amoxicillin and Bactrim for 1 week after discharge. Continue good wound care and frequent repositioning to offload pressure Status: Acute (2) Acute alteration in mental status: Problem comment: Improving with treatment of his infection and IV fluids. Episode of confusion night of December 14 consistent with a mild limited hospital acquired delirium. Resolved quickly Status: Acute (3) Lymphedema: Problem comment: Chronic, recommended treatment: compression wraps. Status: Acute (4) Pulmonary embolism: Problem comment: Chronic PE noted on CT chest from 08/08/2024 and November 14 2024 at [place]. Apixaban held because of surgical debridement. Now resume apixaban. Status: Acute (5) Neurogenic bowel: Problem comment: Continue laxatives. Monitor Status: Acute (6) Neurogenic bladder: Problem comment: - indwelling urinary catheter - exchanged 12/12/24 Ongoing urinary infection of uncertain clinical significance, now with ESBL Klebsiella pneumonia Status: Chronic (7) H/O insertion of cholecystostomy tube: Problem comment: - July 2024 at [facility]. - stable/decompressed gallbladder on CT at admission - unclear plan about cholecystectomy verses long-term use of cholecystostomy tube Catheter exchange every 3 months due in January 2025 Status: Chronic (8) Eason catheter in place: Problem comment: - chronic, replaced in the ED 12/12 Status: Chronic (9) Hypertension: Problem comment: Blood pressure has been relatively low so some antihypertensives have been stopped or reduced. Status: Chronic (10) Obesity: Status: Chronic (11) Multiple sclerosis: Problem comment: - nonambulatory Status: Acute (12) Diabetes mellitus: Problem comment: Hemoglobin A1c was 7.6 on 11/16/2024. Start metformin Status: Acute (13) Normocytic anemia: Problem comment: - baseline Hgb 9.5-11, normocytic, outpatient f/u. Monitor for acute blood loss requiring urgent evaluation November 18, 2024 had iron of 45, TIBC 195 which are both mildly low. TSAT 23%, low normal. B12 and folate normal. On this admission had high normal ferritin level of 411. Status: Acute Plan Patient is to continue in hospital for wound care, monitoring and management of anemia, watching for bleeding, management of heart failure and blood pressure and volume status. Total Time Spent Total Time Spent: Total time spent today is 50 minutes in coordination of care discussing with patient and other providers ongoing management of above medical problems Subjective Date Seen: 12/16/24 Interval history: 74-year-old male admitted to the hospital on 12/12/2024 with altered mental status and weakness. Patient has MS and is wheelchair-bound with paraplegia. He is at [address] [place] [address] with ongoing [facility] care as well as management of sacral ulcers. He was hospitalized here at the and of October with altered mental status and fever. Evaluation at that time showed multiple potential areas of infection including sacral ulcer as well as a he urinary infection with an indwelling Eason catheter and a cholecystostomy tube for cholecystitis. He was treated with antibiotics and did improve. He reports that he has not felt well since that time however. Cultures of his wound in October grew MRSA, ESBL Klebsiella, pansensitive E coli and group B strep. Gallbladder fluid cultures at that time grew ESBL Klebsiella pneumonia as well as relatively sensitive Morganella, Proteus, Pseudomonas. Urine cultures grew Proteus vulgaris resistant to ampicillin cefazolin and cefepime but sensitive to Bactrim quinolones and Zosyn. He was discharged on Augmentin and Bactrim DS for 10 days. On this admission it was felt that his sacral wound was once again infected. He was taken to the OR again and had this debrided. Urine culture on this admission is growing ESBL Klebsiella pneumonia sensitive to Bactrim and Zosyn. Wound was debrided yesterday by Dr. Bailey. Restarted on amoxicillin and Bactrim per recommendations of ID consult. 12/14/2024: He reports that he had some emesis last night after taking medication. He reports poor appetite this morning. No abdominal pain. He is not aware of a fever. He is having no significant pain. White blood count is up to 17,000 from 10,000 and creatinine is up to 1.3 from 0.9. 12/15/2024: Patient reports no new concerns today. He reports no breathing problems. No significant problems with pain. He reports decreased appetite. He recalls having some delusions confusion during the night which he says caused him to get agitated and upset with the nurse. He reports that has resolved. Dr. Bailey did bedside debridement of his ulcer from his left buttock cheek. 12/16/2024: Ren reports no new concerns today. He reports still having a poor appetite. He has been able to eat without nausea vomiting. No delusions or hallucinations in the last day. He has some cough and is having trouble getting the mucus up so is requesting something to help with that. No dyspnea or chest pain. Exam Narrative: Exam Narrative: He is alert and appears in no distress. Respirations are clear to auscultation. Cardiovascular: S1, S2, regular rate and rhythm. Distant heart sounds. Abdomen: Abdomen is soft without tenderness or mass. Lower extremities with 1+ edema, much improved. Const: Vital Signs, click to edit/add: Vital Signs - 24 hr 12/15/24 13:07 12/15/24 15:00 12/15/24 15:00 Temperature 97.6 F 98.5 F Pulse Rate Pulse Rate [Left P ulse Oximeter] 84 84 Pulse Rate [Left R adial] 89 89 Respiratory Rate 16 17 17 Blood Pressure [Ri ght Arm] 127/49 L 137/52 L Pulse Oximetry 93 91 Oxygen Delivery Me thod Room Air Room Air 12/15/24 15:00 12/15/24 19:00 12/15/24 21:35 Temperature 99.0 F Pulse Rate 89 Pulse Rate [Left P ulse Oximeter] 91 84 Pulse Rate [Left R adial] Respiratory Rate 18 Blood Pressure [Ri ght Arm] 141/57 H Pulse Oximetry 92 Oxygen Delivery Me thod Room Air 12/15/24 21:35 12/15/24 22:30 12/15/24 23:30 Temperature 98.1 F Pulse Rate 80 Pulse Rate [Left P ulse Oximeter] 84 Pulse Rate [Left R adial] Respiratory Rate 18 16 Blood Pressure [Ri ght Arm] 143/53 H Pulse Oximetry 92 Oxygen Delivery Me thod Room Air 12/16/24 02:02 12/16/24 04:55 12/16/24 07:20 Temperature Pulse Rate 70 Pulse Rate [Left P ulse Oximeter] Pulse Rate [Left R adial] Respiratory Rate 16 16 Blood Pressure [Ri ght Arm] Pulse Oximetry Oxygen Delivery Me thod 12/16/24 07:51 12/16/24 08:15 12/16/24 11:54 Temperature 98.1 F 98.8 F Pulse Rate Pulse Rate [Left P ulse Oximeter] 69 69 73 Pulse Rate [Left R adial] Respiratory Rate 18 18 16 Blood Pressure [Ri ght Arm] 134/54 L 135/56 L Pulse Oximetry 94 90 Oxygen Delivery Me thod Room Air Room Air Documenting provider has reviewed patient's vital signs: yes Labs Labs: Laboratory Results - last 24 hr 12/16/24 12/16/24 06:00 11:53 WBC 7.80 RBC 2.98 L Hgb 7.6 L* Hct 25.6 L MCV 86 MCH 26 MCHC 30 L RDW Coeff of Rey 18.6 H Plt Count 236 Neut % (Auto) 68.9 Lymph % (Auto) 16.3 L [place] % (Auto) 6.3 Eos % (Auto) 6.7 Baso % (Auto) 0.1 Neut # (Auto) 5.38 Lymph # (Auto) 1.30 [place] # (Auto) 0.50 Eos # (Auto) 0.52 H Baso # (Auto) 0.01 Abs Immat Gran (auto) 0.13 Imm/Tot Granulo (auto) 1.7 Absolute Retic 0.08 Percent Retic 2.6 H Immature Retic Fraction 31.9 H Retic Hgb Equivalent 19.4 L Sodium 138 Potassium 4.0 Chloride 108 Carbon Dioxide 26 Anion Gap 4 L BUN 15 Creatinine 0.8 Estimated Creat Clear 71.13 Estimated GFR 93 Glucose 146 H Calcium 9.0 C-Reactive Protein 6.5 H Stool Occult Blood Positive
--- NOTE | 2024-12-16 18:18 | PC.NURSE ---
End of Shift: Patient pleasant and cooperative. Patient vitally stable, lungs clear, BS WNL, IV SL and intact. Patient rates bottom pain at most 6/10, scheduled Tylenol given. Patient morning dressing change performed by MD. Patient had 2 large BMs, where wound dressing was changed each time. Patient consumed breakfast dinner but does not have much appetite, only eating about 25% of meals. Blood sugars were 148, 145, and 130. Patient was up in chair for breakfast, otherwise in bed napping.
[2024-12-16] MEDS: MELATONIN 3 MG TABLET 6 MG PO (20:58)
[2024-12-16] MEDS: ATORVASTATIN CALCIUM 40 MG TABLET 80 MG PO (21:02)
[2024-12-16] MEDS: OXYCODONE 5 MG TABLET PO (21:03)
[2024-12-16] MEDS: LATANOPROST 0.005% OPHTH 1 DROP EYE-BOTH (21:04)
[2024-12-16] MEDS: LIDOCAINE 5% PATCH 1 PATCH TRANSDERMA (21:20)
[2024-12-17 03:00] VITALS: RESP 18
--- NOTE | 2024-12-17 05:49 | PC.NURSE ---
End of shift [id number]: Pt AxOx4, pleasant, and cooperative with cares. Eason patent and draining. Cholecystostomy drain having no output. Dressing remains CDI. Repo q2h, Pt tolerated well. Able to rest for majority of the night. Restful night vitals in place. Pt resting in bed watching television with call light in reach.
[2024-12-17 06:00] VITALS: RESP 18
[2024-12-17 06:31] LABS: Basophils Absolute Auto 0.01 K/uL (0.00-0.30); Basophils Percent Auto 0.1 % (0.0-3.0); Eosinophils Absolute Auto 0.41 K/uL (0.00-0.50); Hematocrit 25.8 % (37.0-53.0); Immature Granulocytes Abs Auto 0.14 K/uL (0.00-0.30); Immature Granulocytes Pct Auto 1.7 %; Lymphocytes Percent Auto 18.6 % (20-44); Mean Corpuscular HGB Conc 30 gm/dL (32-36); Mean Corpuscular Hemoglobin 26 pg (26-34); Mean Corpuscular Volume 86 fL (80-100); Monocytes Percent Auto 5.5 % (0.0-11.0); Neutrophils Percent Auto 69.1 % (42.0-72.0); Platelet Count* 242 K/uL (140-440); RDW Coefficient of Variation % 18.7 % (11.5-15.5); Red Blood Count 3.01 m/uL (4.30-5.90); White Blood Count* 8.24 K/uL (4.50-11.00)
[2024-12-17 06:37] LABS: Hemoglobin* 7.7 gm/dL (13.5-17.5); Slide Review Reflex No
[2024-12-17 06:47] LABS: Chloride* 107 mmol/L (96-114); Potassium* 3.9 mmol/L (3.6-5.1); Sodium* 136 mmol/L (135-149)
[2024-12-17 06:50] LABS: Anion Gap 4 mEq/L (7-15); Blood Urea Nitrogen* 14 mg/dL (7-30); Carbon Dioxide* 25 mmol/L (20-32); Creatinine* 0.7 mg/dL (0.5-1.5); Est. Creatinine Clearance* 71.13; Estimated Glomerular Filt Rate 97 ml/min
[2024-12-17 06:51] LABS: Calcium* 8.8 mg/dL (8.4-10.6); Glucose* 123 mg/dL (60-115)
[2024-12-17 06:54] LABS: C Reactive Protein* 5.9 mg/dL (0.5-1.0)
[2024-12-17 07:00] VITALS: BP 144/62; PULSE 72; RESP 18; TEMP 36.7; O2SAT 92
--- NOTE | 2024-12-17 08:45 | P.DS_ITS ---
DS: Providers Provider Date Seen: 12/17/24 Date of admission: 12/12/24 17:36 Primary care physician: Bijan Crawford MD Admitting Clinician: Danae Tabares MD Attending Physician on discharge: Luis James MD Date of Discharge: 12/17/24 DS: Diagnosis Discharge Diagnosis (1) Stage IV pressure ulcer of left buttock: Status: Acute Problem details: Surgical debridement in the OR and at the bedside. Initially treated with vancomycin and Zosyn because of previous culture showing multiple drug-resistant organisms. Now back to Augmentin and Bactrim for 1 more week after discharge. B.i.d. dressing changes. Reposition in bed to offload pressure sites Imaging suggests possible osteomyelitis of the pelvis. At this point he is being treated conservatively for cellulitis. If he does have osteomyelitis this is unlikely to be curable. Likely he will just need recurrent hospitalizations for management of recurrent cellulitis due to highly resistant organisms. (Cure of pelvic osteomyelitis would require prolonged hospital management with infectious disease consultation and Plastic surgery.) (2) Acute alteration in mental status: Status: Acute Problem details: Improving with treatment of his infection and IV fluids. Episode of confusion night of December 14 consistent with a mild limited hospital acquired delirium. Resolved quickly (3) Lymphedema: Status: Acute Problem details: Chronic, recommended treatment: compression wraps. (4) Pulmonary embolism: Status: Acute Problem details: Chronic PE noted on CT chest from 08/08/2024 and November 14 2024 at [place]. Apixaban held because of surgical debridement. Now resume apixaban. (5) Neurogenic bowel: Status: Acute Problem details: Continue laxatives. Monitor (6) Neurogenic bladder: Status: Chronic Problem details: - indwelling urinary catheter - exchanged 12/12/24 Ongoing urinary infection of uncertain clinical significance, now with ESBL Klebsiella pneumonia (7) H/O insertion of cholecystostomy tube: Status: Chronic Problem details: - July 2024 at [facility]. - stable/decompressed gallbladder on CT at admission - unclear plan about cholecystectomy verses long-term use of cholecystostomy tube Catheter exchange every 3 months due in January 2025 at [facility] (8) Eason catheter in place: Status: Chronic Problem details: - chronic, replaced in the ED 12/12 (9) Hypertension: Status: Chronic Problem details: Blood pressure has been relatively low so some antihypertensives have been stopped or reduced. Will need ongoing monitoring of volume status, electrolytes and blood pressure to determine proper dose of antihypertensives and diuretics. Monitor basic metabolic panel during and after Bactrim therapy as well (10) Obesity: Status: Chronic (11) Multiple sclerosis: Status: Acute Problem details: Bed-bound (12) Diabetes mellitus: Status: Acute Problem details: Hemoglobin A1c was 7.6 on 11/16/2024. Start metformin. (13) Normocytic anemia: Status: Acute Problem details: - baseline Hgb 9.5-11, normocytic, outpatient f/u. Monitor for acute blood loss requiring urgent evaluation November 18, 2024 had iron of 45, TIBC 195 which are both mildly low. TSAT 23%, low normal. B12 and folate normal. On this admission had high normal ferritin level of 411. Clinically I think the iron studies are not very helpful in determining his iron status. For now will continue daily iron replacement. DS: Summary Hospital Course Hospital Course: 74-year-old male admitted to the hospital on 12/12/2024 with altered mental status and weakness. Patient has MS and is wheelchair-bound with paraplegia. He is at [address] [place] [address] with ongoing nursing home care as well as management of sacral ulcers. He was hospitalized here at the and of October with altered mental status and fever. Evaluation at that time showed multiple potential areas of infection including sacral ulcer as well as a he urinary infection with an indwelling Eason catheter and a cholecystostomy tube for cholecystitis. He was treated with antibiotics and did improve. He reports that he has not felt well since that time however. Cultures of his wound in October grew MRSA, ESBL Klebsiella, pansensitive E coli and group B strep. Gallbladder fluid cultures at that time grew ESBL Klebsiella pneumonia as well as relatively sensitive Morganella, Proteus, Pseudomonas. Urine cultures grew Proteus vulgaris resistant to ampicillin cefazolin and cefepime but sensitive to Bactrim quinolones and Zosyn. He was discharged on Augmentin and Bactrim DS for 10 days. On this admission it was felt that his sacral wound was once again infected. He was taken to the OR again and had this debrided. Urine culture on this admission is growing ESBL Klebsiella pneumonia sensitive to Bactrim and Zosyn. Wound was debrided yesterday by Dr. Bailey. Restarted on amoxicillin and Bactrim per recommendations of ID consult. 12/14/2024: He reports that he had some emesis last night after taking medication. He reports poor appetite this morning. No abdominal pain. He is not aware of a fever. He is having no significant pain. White blood count is up to 17,000 from 10,000 and creatinine is up to 1.3 from 0.9. 12/15/2024: Patient reports no new concerns today. He reports no breathing problems. No significant problems with pain. He reports decreased appetite. He recalls having some delusions confusion during the night which he says caused him to get agitated and upset with the nurse. He reports that has resolved. Dr. Bailey did bedside debridement of his ulcer from his left buttock cheek. 12/16/2024: eRn reports no new concerns today. He reports still having a poor appetite. He has been able to eat without nausea vomiting. No delusions or hallucinations in the last day. He has some cough and is having trouble getting the mucus up so is requesting something to help with that. No dyspnea or chest pain. 12/17/2024: Ren has no new concerns today. He still reports poor appetite but has been eating without nausea or vomiting. Status at Discharge Functional status at discharge: bed bound (Needs frequent repositioning to offload pressure sites on his skin) Time Spent with Patient Time attestation: Total time spent providing and/or coordinating discharge services: 40 minutes Time spent: Greater than 30 minutes Exam Narrative: Exam Narrative: He is alert and appears in no distress. Respirations are clear to auscultation. Cardiovascular: S1, S2, regular rate and rhythm. Abdomen: Bowel sounds active. Abdomen is soft without tenderness or mass. Biliary drainage tube noted with minimal output. Eason in place with mildly concentrated urine. Extremities with mild edema. Const: Vital Signs, click to edit/add: Vital Signs - 24 hr 12/16/24 11:54 12/16/24 14:27 12/16/24 14:41 Temperature 98.8 F 98 F Pulse Rate [Left P ulse Oximeter] 73 74 74 Respiratory Rate 16 18 18 Blood Pressure [Ri ght Arm] 135/56 L 141/61 H Pulse Oximetry 90 96 Oxygen Delivery Me thod Room Air Room Air 12/16/24 20:50 12/16/24 22:50 12/16/24 22:50 Temperature 98.1 F 98.1 F Pulse Rate [Left P ulse Oximeter] 73 72 72 Respiratory Rate 16 16 16 Blood Pressure [Ri ght Arm] 141/61 H 144/62 H Pulse Oximetry 91 92 Oxygen Delivery Me thod Room Air Room Air 12/16/24 23:30 12/17/24 03:00 12/17/24 06:00 Temperature Pulse Rate [Left P ulse Oximeter] Respiratory Rate 18 18 18 Blood Pressure [Ri ght Arm] Pulse Oximetry Oxygen Delivery Me thod Documenting provider has reviewed patient's vital signs: yes DS: Data Data Completed and Pending Completed studies during hospitalization: Procedures Excision of Back Subcutaneous Tissue and Fascia, Open Approach (11/16/24) Labs on day of discharge: Labs from last 24 hours 12/17/24 12/16/24 12/16/24 06:10 11:53 06:00 WBC 8.24 RBC 3.01 L Hgb 7.7 L* Hct 25.8 L MCV 86 MCH 26 MCHC 30 L RDW Coeff of Rey 18.7 H Plt Count 242 Neut % (Auto) 69.1 Lymph % (Auto) 18.6 L [place] % (Auto) 5.5 Eos % (Auto) 5.0 Baso % (Auto) 0.1 Neut # (Auto) 5.70 Lymph # (Auto) 1.50 [place] # (Auto) 0.50 Eos # (Auto) 0.41 Baso # (Auto) 0.01 Abs Immat Gran (auto) 0.14 Imm/Tot Granulo (auto) 1.7 Absolute Retic 0.08 Percent Retic 2.6 H Immature Retic Fraction 31.9 H Retic Hgb Equivalent 19.4 L Sodium 136 Potassium 3.9 Chloride 107 Carbon Dioxide 25 Anion Gap 4 L BUN 14 Creatinine 0.7 Estimated Creat Clear 71.13 Estimated GFR 97 Glucose 123 H Calcium 8.8 C-Reactive Protein 5.9 H Stool Occult Blood Positive Preliminary micro results at discharge 12/15/24 10:46 Body Fluid Culture - Preliminary Gallbladder Fluid Gram negative aden Gram negative aden#2 Gram negative aden#3 12/12/24 14:50 Blood Culture - Preliminary Blood NO GROWTH AFTER 96 HOURS 12/12/24 14:30 Blood Culture - Preliminary Blood NO GROWTH AFTER [address] scan - abdomen: Radiologist's impression: INDICATION: Sepsis and right upper quadrant pain. Cholecystostomy tube. TECHNIQUE: Axial images were obtained from the diaphragm to the pubic symphysis. Reformats were obtained in the coronal and sagittal plane. IV Contrast: 118 cc Isovue 370 Oral Contrast: None COMPARISON: Abdomen and pelvis CT 11/16/2024 FINDINGS: Lower chest: Bibasilar discoid atelectasis. Liver: Diffusely decreased density of the liver with hypodense hepatic lesions, largest at the dome of the liver measuring 6.4 centimeters with some internal high density, similar to the prior exam. Hypodense lesion within the right lobe of the liver measures 10 millimeters, similar to the prior exam. Some hypodensity adjacent the falciform ligament likely represents focal fat. 3 millimeter hypodense lesion within the inferior aspect of the right lobe is also stable. Gallbladder and bile ducts: Contracted with cholecystostomy tube centered within the gallbladder lumen. Normal diameter common duct. Spleen: Unremarkable. Normal in size without mass. Pancreas: Prominent pancreatic atrophy. Adrenal glands: Right adrenal nodule measuring 16 millimeters, similar to the prior exam. Kidneys: Symmetric renal enhancement with cortical thinning. Hyperdense left renal lesions redemonstrated, largest measuring 14 millimeters which are stable compared to the prior exam. Vasculature: Atherosclerosis without abdominal aortic aneurysm. GI tract: The stomach is decompressed. Eddie hepatis lymph nodes measure up to 14 millimeters, similar to the prior exam. No dilated loops of large or small intestine. Pelvis: Eason catheter present, however the balloon is inflated within the prostatic urethra with are noted in the bladder lumen. Small bladder diverticula. Fat density with peripheral soft tissue measuring up to 8.0 centimeters in the posterior subcutaneous tissues as well as a similar process within the left ischioanal fossa. Subcutaneous air present within this area (series 2, image 171). This extends cephalad to the level of the left ischium where there is new indistinctness at the inferior cortical margin with sclerosis in the intramedullary portion of the left ischium (series 2, image 169). Bones: Status post pin fixation of the right femoral head. Mild erosive changes at the anteroinferior aspect of L5. This can be due to severe degenerative disc disease although the differential diagnosis includes discitis. However, this finding is similar to the prior exam. IMPRESSION: 1. New air within the subcutaneous tissues at the level of the left ischioanal fossa suggestive of cellulitis with subcutaneous air which can represent a necrotizing infection or air introduced from a decubitus ulcer. No drainable abscess, however this process extends to the inferior margin of the left ischium with new sclerosis in the ischium and some indistinctness of the cortex suggesting early osteomyelitis. 2. Eason catheter with balloon at the level of the prostate. 3. Cholecystostomy tube within the gallbladder with the gallbladder decompressed. 4. Other incidental findings as noted above. Discharge Plan Discharge Disposition: [facility] Date of Admission: 12/12/24 17:36 Attending Provider on Discharge: Rodolfo James Primary Care Provider: Bijan Crawford Discharge Medications: New sulfamethoxazole-trimethoprim 800-160 mg Tablet 1 tab PO BID Qty: 14 0RF amoxicillin 250 mg Capsule 500 mg PO TID Qty: 21 0RF metformin 500 mg Tablet Extended Release 24 Hr 1,000 mg PO DAILY Qty: 60 0RF Continued bacitracin 500 unit/gram ointment 1 applic topical BID sennosides-docusate sodium [Senna Plus] 8.6-50 mg tablet 2 tab-cap PO DAILY Patient Comments: plus prn baclofen 10 mg tablet 10 mg PO BID Eliquis 5 mg tablet 5 mg PO BID atorvastatin 80 mg tablet 80 mg PO HS latanoprost 0.005 % drops 1 drp ophthalmic (eye) HS Rx Instructions: BOTH EYES furosemide 20 mg tablet 20 mg PO QPM bisacodyl 10 mg suppository 10 mg FL DAILY PRN ondansetron HCl 4 mg tablet 4 mg PO Q6H PRN diclofenac sodium 1 % gel 2 g topical BID PRN Ear Wax Removal Kit 6.5 % drops 5 drp otic (ear) Q7D Patient Comments: every Monday allopurinol 100 mg Tablet 100 mg PO DAILY Qty: 30 0RF clotrimazole 1 % cream 1 applic topical BID furosemide 40 mg tablet 40 mg PO DAILY potassium chloride 10 mEq capsule, extended release 10 meq PO BIDWM metoprolol succinate 100 mg tablet extended release 24 hr 100 mg PO DAILY acetaminophen 500 mg tablet 1,000 mg PO TID pantoprazole 40 mg tablet,delayed release (DR/EC) 40 mg PO BID calcium carbonate [Zachary-Gest Antacid] 200 mg calcium (500 mg) tablet,chewable 400 mg PO BID polyethylene glycol 3350 17 gram/dose powder 17 g PO DAILY Patient Comments: plus prn lisinopril 40 mg tablet 40 mg PO DAILY cholecalciferol (vitamin D3) [Vitamin D3] 25 mcg (1,000 unit) tablet 25 mcg PO DAILY Changed ferrous sulfate 325 mg (65 mg iron) Tablet 325 mg PO DAILY Qty: 30 0RF Discontinued aspirin 81 mg tablet,delayed release (DR/EC) 81 mg PO DAILY nifedipine 90 mg tablet extended release 24hr 90 mg PO DAILY Discharge Orders: Discharge Order (Routine); Ordered 12/17/24 Ordered By: Rodolfo James Activity Level: Other Activity Detail: Bed to chair transfer. Reposition to keep pressure off buttock ulcer. Discharge Diet: Diabetic Follow Up Appointments: Bijan Crawford MD [Primary Care Provider, Family Practice] Forms: [facility] Info Instructions Wound Care: Change dressings in buttock ulcer twice daily Admit to: SNF Discharge Potential: Poor Length of Stay: >90 days Can use facility standing orders?: Yes Code Status: DNR/DNI Rehab Potential: Poor Oxygen: No Urinary Catheter: No Lab Orders: CBC and basic metabolic panel in 3 days and 10 days
[2024-12-17] MEDS: FUROSEMIDE 40 MG TABLET PO (09:44)
[2024-12-17] MEDS: METOPROLOL SUCCINATE (XL) 50 MG TAB PO (09:45)
[2024-12-17] MEDS: SENNOSIDES/DOCUSATE TABLET 2 TAB PO (09:46)
[2024-12-17] MEDS: allopurinoL 100 MG TABLET PO (09:46)
[2024-12-17] MEDS: SULFA/TRIMETHOPRIM 800/160 1 TAB PO (09:47)
[2024-12-17] MEDS: AMOXICILLIN 250 MG CAPSULE 500 MG PO (09:47)
[2024-12-17] MEDS: ASPIRIN 81 MG TABLET EC PO (09:48)
[2024-12-17] MEDS: ACETAMINOPHEN 500 MG TABLET 1000 MG PO (09:48)
[2024-12-17] MEDS: APIXABAN 5 MG TABLET PO (09:50)
[2024-12-17] MEDS: OMEPRAZOLE 20 MG CAPSULE DR 40 MG PO (09:50)
[2024-12-17] MEDS: polyethylene glycoL 3350 17 GM PACK PO (09:51)
--- NOTE | 2024-12-17 11:22 | PM.GSPN ---
Subjective Subjective Date Seen: 12/17/24 Interval history: Patient is doing good this morning. He is going back to [facility] this morning. He did already have a dressing change today, which he reports tolerating well. He is scheduled to see wound clinic tomorrow afternoon. Exam Narrative: Exam Narrative: General: Alert and oriented, no acute distress Respiratory: Equal breath rise bilaterally, maintained on room air CV: Well perfused : Deferred, patient had dressing changed by nursing. Const: Vital Signs, click to edit/add: Vital Signs - 24 hr 12/16/24 11:54 12/16/24 14:27 12/16/24 14:41 Temperature 98.8 F 98 F Pulse Rate [Left P ulse Oximeter] 73 74 74 Respiratory Rate 16 18 18 Blood Pressure [Ri ght Arm] 135/56 L 141/61 H Pulse Oximetry 90 96 Oxygen Delivery Me thod Room Air Room Air 12/16/24 20:50 12/16/24 22:50 12/16/24 22:50 Temperature 98.1 F 98.1 F Pulse Rate [Left P ulse Oximeter] 73 72 72 Respiratory Rate 16 16 16 Blood Pressure [Ri ght Arm] 141/61 H 144/62 H Pulse Oximetry 91 92 Oxygen Delivery Me thod Room Air Room Air 12/16/24 23:30 12/17/24 03:00 12/17/24 06:00 Temperature Pulse Rate [Left P ulse Oximeter] Respiratory Rate 18 18 18 Blood Pressure [Ri ght Arm] Pulse Oximetry Oxygen Delivery Me thod 12/17/24 07:00 Temperature 98.1 F Pulse Rate [Left P ulse Oximeter] 72 Respiratory Rate 18 Blood Pressure [Ri ght Arm] 144/62 H Pulse Oximetry 92 Oxygen Delivery Me thod Room Air Labs/Imaging Labs Labs: No leukocytosis. Anemia stable at 7.7. CRP 5.9 Progress Note:A&P Assessment and plan (1) Stage IV pressure ulcer of left buttock: Status: Acute Assessment and Plan: Patient is a 74-year-old male with a stage IV pressure ulcer over the left ischial tuberosity. Patient is now postop day 4 for excisional debridement. Postoperatively he did require additional debridements od the anterior aspect of the wound bed at the bedside. Unfortunately I was unable to evaluate the wound today prior to him leaving. Recommend he continue with wet to dry dressings and follow up with wound clinic as scheduled.
--- NOTE | 2024-12-17 12:18 | PC.SOCIAL ---
Discharge Planning: LUIS called [facility] and spoke with Bekah who states that they can take patient back. Bekah inquired about IV antibiotics and SW explained they were all oral. Bekah states patient can come back anytime and would like orders sent via fax [phone]. SW sent orders. EMS transport set up. SW met with patient and reviewed Important Message for Medicare. Patient discussed feeling that the facility won't meet his needs and that they don't right now. SW asked for examples and patient had none, patient states that his wound won't heal. SW discussed that if he does have concerns about the care he is receiving he can call The Office of the Ombudsman to file a complaint. Patient asked for this number and SW provided it to him. Patient had no other quetions at this time.
== END 2024-12-17 10:30 | DRG 570 ==
LOC: ED 16:30 → MEDSURG 17:21
PROVIDERS: Family Medicine; Surgery; Admitting Provider Family Medicine; Emergency Provider Emergency Medicine; PCP Family Medicine; Visit Provider Family Medicine
PROC: 0JB70ZZ Excision of Back Subcutaneous Tissue and Fascia, Open Approach (ICD-10-PCS; CPT 27675; principal; 2024-12-13 14:30)
DX: L89.324 Pressure ulcer of left buttock, stage 4 (principal); I26.99 Other pulmonary embolism without acute cor pulmonale; T83.511A Infection and inflammatory reaction due to indwelling urethral catheter, initial encounter; N39.0 Urinary tract infection, site not specified; L03.317 Cellulitis of buttock; Z16.12 Extended spectrum beta lactamase (ESBL) resistance; Z16.24 Resistance to multiple antibiotics; M86.8X8 Other osteomyelitis, other site; K59.2 Neurogenic bowel, not elsewhere classified; G82.20 Paraplegia, unspecified; B96.1 Klebsiella pneumoniae [K. pneumoniae] as the cause of diseases classified elsewhere; E11.9 Type 2 diabetes mellitus without complications; B95.2 Enterococcus as the cause of diseases classified elsewhere; G35 Multiple sclerosis; N31.9 Neuromuscular dysfunction of bladder, unspecified; R41.0 Disorientation, unspecified; Z59.41 Food insecurity; Z99.3 Dependence on wheelchair; D64.9 Anemia, unspecified; I11.0 Hypertensive heart disease with heart failure; I50.9 Heart failure, unspecified; Z93.59 Other cystostomy status; K81.9 Cholecystitis, unspecified; E66.9 Obesity, unspecified; I89.0 Lymphedema, not elsewhere classified; G47.30 Sleep apnea, unspecified; I44.0 Atrioventricular block, first degree; I25.10 Atherosclerotic heart disease of native coronary artery without angina pectoris; E78.5 Hyperlipidemia, unspecified; Z86.711 Personal history of pulmonary embolism; Z86.718 Personal history of other venous thrombosis and embolism; Z87.440 Personal history of urinary (tract) infections; Z79.01 Long term (current) use of anticoagulants; Z79.82 Long term (current) use of aspirin; Z87.891 Personal history of nicotine dependence
CPT/HCPCS: 51702; 00902; 36415; 72190; 74177; 80048; 80053; 80069; 80076; 81001; 82270; 82728; 82803; 82962; 83605; 83690; 85025; 85045; 86140; 87040; 87070; 87075; 87077; 87086; 87186; 87205; 87631; 88304; 93005; 99100; 99284; 99285; G0463; A9270; J1100; J1171; J2270; J2371; J2405; J2543; J2704; J3010; J3372; J3490; J7030; J7050; J7120; Q9967

== ENCOUNTER 2024-12-17 10:18 | Outpatient (CLI) | payer MEDICARE, SELFPAY | END 2024-12-17 10:19 | disposition home or self-care (01) | PROVIDERS: PCP Family Medicine; Visit Provider Family Medicine | DX: L89.324 Pressure ulcer of left buttock, stage 4 (principal) | CPT/HCPCS: A0425; A0428 ==

== ENCOUNTER 2024-12-25 12:26 | Outpatient (CLI) | payer MEDICARE, SELFPAY | END 2024-12-25 12:27 | disposition home or self-care (01) | LOC: WOUND 12:26 | PROVIDERS: PCP Family Medicine; Visit Provider Surgery | DX: L89.324 Pressure ulcer of left buttock, stage 4 (principal); L89.150 Pressure ulcer of sacral region, unstageable; G35 Multiple sclerosis; G82.20 Paraplegia, unspecified; K59.2 Neurogenic bowel, not elsewhere classified; Z99.3 Dependence on wheelchair | CPT/HCPCS: 11043; 97597 ==

== ENCOUNTER 2025-01-01 12:38 | Outpatient (CLI) | payer MEDICARE, SELFPAY | END 2025-01-01 12:39 | disposition home or self-care (01) | LOC: WOUND 12:38 | PROVIDERS: PCP Family Medicine; Visit Provider Surgery | DX: L89.324 Pressure ulcer of left buttock, stage 4 (principal); L89.150 Pressure ulcer of sacral region, unstageable; G35 Multiple sclerosis; G82.20 Paraplegia, unspecified; Z99.3 Dependence on wheelchair | CPT/HCPCS: 11042 ==

== ENCOUNTER 2025-01-03 13:50 | Outpatient (CLI) | payer MEDICARE, SELFPAY | END 2025-01-03 13:51 | disposition home or self-care (01) | LOC: AMB 01-06 09:35 | PROVIDERS: PCP Family Medicine; Visit Provider Internal Medicine | DX: L89.309 Pressure ulcer of unspecified buttock, unspecified stage (principal); R52 Pain, unspecified | CPT/HCPCS: A0425; A0427 ==

== ENCOUNTER 2025-01-03 14:14 | Inpatient (IN) | payer MEDICARE, SELFPAY ==
[2025-01-03] VITALS (37 sets, daily range): BP systolic 98–141; BP diastolic 44–84; PULSE 69–104; RESP 16–18; TEMP 35.9–36.8; O2SAT 87–99
--- OUTSIDE RECORDS SUMMARY | 2025-01-03 14:17 | XMS_ITS | Clinical Summary ---
Author Organization [facility] Address [address] [place] [id number] Care Team Providers Care Folder Seamer Name Role Phone Nitin Birdie Sam RN Unavailable Karrie Singer RN Unavailable [phone] Clinic, No Pcp Or Primary Care Provider Unavaila ble Allergies Active Allergy Reactions Criticality Noted Date Comments Vancomycin vancomycin infusion reaction (cutaneous flushing/non-allergic reaction) Medium 05/26/2018 Red Man Syndrome Encounters Date Type Department Care Team Description 12/30/2024 Lab Requisition [facility] [phone] Carmenza Quiroz NP 12/23/2024 Lab Requisition [facility] [phone] Carmenza Quiroz NP 12/13/2024 Lab Requisition [facility] [phone] Sue Bailey MD 12/09/2024 Lab Requisition [facility] [phone] Carmenza Quiroz NP 11/29/2024 Lab Requisition [facility] [phone] Bijan Crawford MD 11/14/2024 8:30 AM CDT - 11/14/2024 11:59 PM CDT Hospital Encounter [facility] [address] [place] [address] Pablo Vo [facility] Acute pulmonary embolus (HC); 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, bi (HC) 10/28/2024 Lab Requisition [facility] [phone] Carmenza Quiroz NP from Last 3 Months [...] Description 02/05/2025 9:30 AM CDT Office Visit [facility] [address] [place] [address] Markel Schultz MD [address] [place] [address] 02/06/2025 9:00 AM CDT Appointment [facility] [address] [place] [address] Procedures Procedure Name Priority Date/Time Associated Diagnosis Comments RED CELL MORPHOLOGY Routine 12/31/2024 7 :10 AM CDT Anemia, unspecified PLATELET ESTIMATE Routine 12/31/2024 7:1 0 AM CDT Anemia, unspecified CBC WITH AUTO DIFFERENTIAL Routine 12/31/2024 7:10 AM CDT Anemia, unspecified CBC WITH AUTO DIFFERENTIAL Routine 12/31/2024 7:10 AM CDT Anemia, unspecified CBC WITH AUTO DIFFERENTIAL Routine 12/24/2024 7:08 AM CDT Anemia, unspecified CBC WITH AUTO DIFFERENTIAL Routine 12/24/2024 7:08 AM CDT Anemia, unspecified LAB TRACKING EVENT Routine 12/13/2024 3: 58 PM CDT PATH TISSUE EXAM Routine 12/13/2024 3:58 PM CDT CBC WITH AUTO DIFFERENTIAL Routine 12/10/2024 7:05 [...] Results * (ABNORMAL) CBC WITH AUTO DIFFERENTIAL (12/31/2024 7:10 AM CDT) Only the most recent of4 resultswithin the time period is included. WHITE BLOOD COUNT 8.0 4.5 - 11.0 thou/cu mm 12/31/2024 10:44 AM CDT [facility] RED BLOOD COUNT 3.72(L) 4.30 - 5.90 mil/cu mm 12/31/2024 10:44 AM CDT [facility] HEMOGLOBIN 9.3(L) 13.5 - 17.5 g/dL 12/31/2024 10:[address] [facility] HEMATOCRIT 32.5(L) 37.0 - 53.0 % 12/31/2024 10:[address] [facility] MCV 87 80 - 100 fL 12/31/2024 10:[address] [facility] MCH 25.0(L) 26.0 - 34.0 pg 12/31/2024 10:[address] [facility] MCHC 28.6(L) 32.0 - 36.0 g/dL 12/31/2024 10:[address] [facility] RDW 19.3(H) 11.5 - 15.5 % 12/31/2024 10:[address] [facility] PLATELET COUNT 263 140 - 440 thou/cu mm 12/31/2024 10:[address] [facility] MPV 9.3 6.5 - 11.0 fL 12/31/2024 10:[address] [facility] % NEUT 64.3 % 12/31/2024 10:[address] [facility] % LYMPH 23.0 % 12/31/2024 10:[address] [facility] % MONO 9.7 % 12/31/2024 10:[address] [facility] % EOS 2.9 % 12/31/2024 10:[address] [facility] % BASO 0.1 % 12/31/2024 10:[address] [facility] ABSOLUTE NEUTROPHILS 5.2 1.7 - 7.0 thou/cu mm 12/31/2024 10:[address] [facility] ABSOLUTE LYMPHOCYTES 1.9 0.9 - 2.9 thou/cu mm 12/31/2024 10:[address] [facility] ABSOLUTE MONOCYTES 0.8 <0.9 thou/cu mm 12/31/2024 10:[address] [facility] ABSOLUTE EOSINOPHILS 0.2 <0.5 thou/cu mm 12/31/2024 10:[address] [facility] ABSOLUTE BASOPHILS 0.0 <0.3 thou/cu mm 12/31/2024 10:44 AM CDT [facility] Blood BLOOD SPECIMEN / Unknown Butterfly / Unknown 12/31/2024 7:10 AM CDT 12/31/2024 9:36 AM CDT Carmenza Quiroz NP HEMATOLOGY Final Resul t Performing Organization Address City/[facility] de Phone Number [facility] [address] [place] [address] * (ABNORMAL) RED CELL MORPHOLOGY (12/31/2024 7:10 AM CDT) ELLIPTOCYTES Few 12/31/2024 10:44 AM CDT [facility] POLYCHROMASIA Slight 12/31/2024 10:44 AM CDT [facility] TEARDROP CELLS Few 12/31/2024 10:44 AM CDT [facility] RBC COMMENT Present(A) RBC morphology appears normal, RBC morphology within normal limits for newborns. 12/31/2024 10:44 AM CDT [facility] *BASOPHILIC STIPPLING Present 12/31/2024 10:44 AM CDT [facility] Blood BLOOD SPECIMEN / Unknown Butterfly / Unknown 12/31/2024 7:10 AM CDT 12/31/2024 9:36 AM CDT Carmenza Quiroz NP HEMATOLOGY Final Resul t Performing Organization Address City/[facility]/ZIP Co de Phone Number [facility] [address] [place] [address] * PLATELET ESTIMATE (12/31/2024 7:10 AM CDT) PLATELET ESTIMATE Adequate Adequate, No estimate 12/31/2024 10:44 AM CDT [facility] Blood BLOOD SPECIMEN / Unknown Butterfly / Unknown 12/31/2024 7:10 AM CDT 12/31/2024 9:36 AM CDT Carmenza Quiroz PILER HEMATOLOGY Final Resul t [facility] [address] [place] [address] * LAB TRACKING EVENT (12/13/2024 3:58 PM CDT) Other (Other) Client Collect / Unknown 12/13/2024 3:58 PM CDT 12/13/2024 10:08 PM CDT us Sue Bailey MD LAB BILL ONLY Final Re sult [facility] [address] [place] [address], * PATH TISSUE EXAM (12/13/2024 3:58 PM CDT) Case Report Pathology Report Case: [id number] Authorizing Provider: Sue Bailey MD Collected: 12/13/2024 1558 Ordering Location: [facility] Received: 12/14/2024 0858 Pathologist: Shay Noland MD Specimen: Left Buttock, left buttock pressure ulcer tissue 12/19/2024 1:42 PM CDT [facility] Final Diagnosis A) SOFT TISSUE, LEFT BUTTOCK, DEBRIDEMENT: Fibroadipose tissue with necrosis and foci of acute inflammation 12/19/2024 1:42 PM CDT [facility] at 1341 CDT Clinical Information Pressure ulcer on the left buttock. 12/19/2024 1:42 PM CDT [facility] Gross Description A) Received in formalin, labeled with the patient's name and L buttock pressure ulcer tissue, is a 7.5 x 5.5 x 3.3 cm aggregate of multiple irregular portions of sandoval-brown, dusky and ragged soft tissue. No lesions or masses are identified. Conference Services Coordinator sections are submitted in 1 cassette. JKG 12/17/2024 12/19/2024 1:42 PM CDT [facility] Microscopic Description The final diagnosis is based on microscopic examination of appropriate sections of all specimens. 12/19/2024 1:42 PM CDT [facility]- ENTROH LABORATORY Additional Information Interpreted at [facility] - [address] [facility] [address], [place] [address] 12/19/2024 1:42 PM CDT [facility] Other (Left Buttock) 12/13/2024 3:58 PM CDT 12/14/2024 8:58 AM CDT us Sue Bailey MD PATHOLOGY/CYTOLOGY Final Result [facility] [address] [place] [address], * (ABNORMAL) C-REACTIVE PROTEIN (12/10/2024 7:05 AM CDT) C-REACTIVE PROTEIN 23.1(H) <0.5 mg/dL 12/10/2024 8:20 AM CDT [facility] Blood BLOOD SPECIMEN / Unknown Venipuncture / Unknown 12/10/2024 7:05 AM CDT 12/10/2024 7:47 AM CDT Carmenza Quiroz NP CHEMISTRY Final Resul t [facility] [address] [place] [address] * VITAMIN B12 (12/10/2024 7:05 AM CDT) VITAMIN B12 510 232 - 1,245 pg/mL 12/10/2024 12:14 PM CDT [facility] Blood BLOOD SPECIMEN / Unknown Venipuncture / Unknown 12/10/2024 7:05 AM CDT 12/10/2024 7:47 AM CDT Narrative [facility] - 12/10/2024 12:14 PM CDT Biotin supplements may cause clinically significant interference for this test assay. If interference is suspected, it is strongly recommended that biotin is discontinued for at least one week prior to retesting. us Carmenza Quiroz NP CHEMISTRY Final Resul t [facility] [address] [place] [address], [place] * (ABNORMAL) BASIC METABOLIC PANEL (12/03/2024 8:35 AM CDT) Only the most recent of2 resultswithin the time period is included. SODIUM 138 136 - 145 mmol/L 12/03/2024 9:[address] [facility] POTASSIUM 4.9 3.5 - 5.1 mmol/L 12/03/2024 9:[address] [facility] CHLORIDE 100 98 - 107 mmol/L 12/03/2024 9:[address] [facility] CO2,TOTAL 23 22 - 29 mmol/L 12/03/2024 9:[address] [facility] ANION GAP 15 5 - 18 12/03/2024 9:[address] [facility] GLUCOSE 218(H) 70 - 99 mg/dL 12/03/2024 9:[address] [facility] CALCIUM 9.9 8.8 - 10.4 mg/dL 12/03/2024 9:[address] [facility] Comment: Reference ranges for this test were updated on 05/28/2024 to reflect our healthy population more accurately. Reference range changes are not retroactively applied to results, but previous results using the same methodology can be interpreted in the context of the new reference range. BUN 32(H) 8 - 23 mg/dL 12/03/2024 9:[address] [facility] CREATININE 0.87 0.70 - 1.20 mg/dL 12/03/2024 9:[address] [facility] BUN/CREAT RATIO 37(H) 10 - 20 9:[address] [facility] eGFR >90 >90 mL/min/1. 73m2 12/03/2024 9:[address] [facility] Comment:As of 2021, eG FR is calculated by the CKD-EPI creatinine equation without race adjustment. eGFR can be influenced by muscle mass, exercise, and diet. The reported eGFR is an estimation only and is only applicable if the renal function is stable. Blood BLOOD SPECIMEN / Unknown Butterfly / Unknown 12/03/2024 8:35 AM CDT 12/03/2024 9:25 AM CDT Bijan Crawford MD CHEMISTRY Final Result [facility] [address] [place] [address] * CT CHEST PE STUDY (11/14/2024 9:06 AM CDT) Anatomical Region Laterality Modality CHEST, THORAX, HEART Computed To mography Pablo Vo [facility] CT Fin al Result * SCAN-RADIOLOGY REPORT (11/14/2024 12:00 AM CDT) Anatomical Region Laterality Modality Computed Tomogra phy Scanner OTHER Final Result * (ABNORMAL) HEMOGLOBIN A1C (10/29/2024 7:37 AM CDT) HEMOGLOBIN A1C SCREENING 7.4(H) <=6.4 % 10/29/2024 8:39 AM CDT [facility] Blood BLOOD SPECIMEN / Unknown Butterfly / Unknown 10/29/2024 7:37 AM CDT 10/29/2024 8:31 AM CDT Narrative [facility] - 10/29/2024 8:39 AM CDT (<5.7%) Normal (5.7% to 6.4%) Indicates prediabetes (>=6.5%) Confirms diabetes Falsely low levels may be seen with: Recent Transfusion, Recent Significant Blood Loss, Hemolytic Diseases, or Falsely elevated levels may be seen with: Untreated Anemias, Splenectomy Carmenza Quiroz PILER CHEMISTRY Final Resul t [facility] [address] [place] [address] from Last 3 Months Insurance [employer] [facility] [employer] [facility] Care Teams Folder Seamer Relationship Specialty Start Date End Date Clinic, No Pcp Or . PCP - General 07/31/23 Birdie Taveras RN [address] [facility] [address] [place], [place] [id number] [employer]man - [facility] Registered Nurse 07/24/23 Karrie Singer, RN [address] [facility] [address] [place], [place] [id number] [employer]Fireman - [facility] Registered Nurse 07/24/23
--- OUTSIDE RECORDS SUMMARY | 2025-01-03 14:17 | XMS_ITS | Clinical Summary ---
Author Organization [facility] Address [address] [place] [address] Care Team Providers Care Board Design Engineer Name Role Phone Jeff Reyes M.D. Primary Care Provider [phone] Source Comments Patient records contain information from all sites at [facility]. For routine questions regarding patient records, call [phone] during business hours, M-F 8:00 AM - 5:00 PM Central Time. 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 Assessment & Plan (07/04/2018 2:56 PM SUPERVISOR WATER SOFTENER SERVICE): Continue I&O catheterization as needed Multiple Sclerosis 06/03/2003 Assessment & Plan (07/04/2018 3:32 PM SUPERVISOR WATER SOFTENER SERVICE): -Continue to follow with Neurology for further recommendations Resolved Problems Problem Noted Date Diagnosed Date Resolved Date Sprain Ankle Initial Right 11/08/2022 0 11/09/2022 Obesity Unspecified 03/21/2019 11/10/19 23 Urinary Tract Infection Site Not Specified 07/04/2018 11/09/2022 Overview (07/04/2018): Completed ciprofloxacin 500 mg b.i.d. for an antibiotic course of 14 days (last dose on 06/08/2018) Assessment & Plan (07/04/2018 3:31 PM SUPERVISOR WATER SOFTENER SERVICE): -Patient denies any urinary symptoms today on exam. -Continue care cranberry 450 mg daily Failure Renal Acute (Acute Kidney Injury) 05/27/2018 10/19/2022 Non-ST Elevation Myocardial Infarction 05/26/2018 10/23/2019 Assessment & Plan (07/04/2018 10:14 AM SUPERVISOR WATER SOFTENER SERVICE): 1. Continue aspirin 81 mg daily 2. [...] Encounters Date Type Department Care Team Description 12/17/2024 Orders Only [facility] [address] [place] [phone] Jeff Reyes M.D. Screening Cancer Colon 12/03/2024 Orders Only [facility] [address] [place] [address] Jeff Reyes M.D. Screening Cancer Colon 11/14/2024 8:45 AM CDT - 11/14/2024 11:59 PM CDT Hospital Encounter Department of Radiology in [address] [address] Pablo Vo M.D. Embolus Pulmonary (HCC); Acute Embolism And Thrombosis Of Other Specified Deep Vein Of Lower Extremity Bilateral (HCC) Discharge Disposition: Home or Self Care 11/14/2024 8:23 AM CDT - 11/14/2024 8:44 AM CDT Hospital Encounter Department of Radiology in [place], [place] [address] [place] [address] Pablo Vo M.D. Embolus Pulmonary (HCC); Acute Embolism And Thrombosis Of Other Specified Deep Vein Of Lower Extremity Bilateral (HCC) Discharge Disposition: Home or Self Care 11/14/2024 Results Follow-Up Department of Oncology in [address] [address] Chest Angiogram and Pulmonary Arteries with IV Contrast 11/12/2024 10:26 AM CDT - 11/12/2024 11:59 PM CDT Hospital Encounter Department of Laboratory Medicine in [place], [place] [address] [address] Pablo Vo M.D. Embolus Pulmonary (HCC); Acute Embolism And Thrombosis Of Other Specified Deep Vein Of Lower Extremity Bilateral (HCC) Discharge Disposition: Home or Self Care 11/12/2024 9:00 AM CDT Comprehensive Visit Department of Oncology in [place], [place] [address] [address] Pablo Vo M.D. Embolus Pulmonary (HCC) (Primary Dx); Acute Embolism And Thrombosis Of Other Specified Deep Vein Of Lower Extremity Bilateral (HCC); Paraplegia (HCC); Multiple Sclerosis (HCC); Body Mass Index 34.0 To 34.9 Adult 11/12/2024 Clinical Communication Department of [facility], in [address] [place] [address] Jeff Reyes M.D. 11/08/2024 10:45 AM CDT Virtual Visit Department of Cardiovascular Diseases in [place], [place] [address] [address] Thaddeus Li M.D. Hyperlipidemia On Treatment (Primary Dx); Atherosclerotic Heart Disease Of [place] Coronary Artery Without Angina Pectoris; Preoperative Examination Cardiovascular; Embolus Pulmonary (HCC) 11/06/2024 8:22 AM CDT - 11/06/2024 11:59 PM CDT Hospital Encounter Department of Cardiovascular Diseases in [place], [place] [address] [place] [address] Thaddeus Li M.D. Cholecystitis; Preoperative Examination Cardiovascular; Hyperlipidemia On Treatment; Atherosclerotic Heart Disease Of [place] Coronary Artery Without Angina Pectoris Discharge Disposition: Home or Self Care 11/05/2024 9:24 AM CDT - 11/05/2024 11:59 PM CDT Hospital Encounter Department of Laboratory Medicine in [place], [place] [address] [place] [address] Thaddeus Li M.D. Cholecystitis; Preoperative Examination Cardiovascular; Hyperlipidemia On Treatment; Atherosclerotic Heart Disease Of [place] Coronary Artery Without Angina Pectoris Discharge Disposition: Home or Self Care 11/05/2024 8:45 AM CDT Comprehensive Visit Department of Cardiovascular Diseases in [address] [address] Thaddeus Li M.D. Preoperative Examination Cardiovascular (Primary Dx); Cholecystitis; Hyperlipidemia On Treatment; Atherosclerotic Heart Disease Of [place] Coronary Artery Without Angina Pectoris 11/05/2024 7:35 AM CDT - 11/05/2024 9:23 AM CDT Hospital Encounter Department of Laboratory Medicine in [address] [address] Roland Bneson D.O. Cholecystitis Discharge Disposition: Home or Self Care 10/24/2024 9:12 AM CDT - 10/24/2024 10:53 AM CDT Hospital Encounter Department of Radiology in [address] [address] Rafael Cisse P.A.-C., Anuel Guerrero M.D. Cholecystitis Discharge Disposition: Home or Self Care 10/23/2024 Clinical Communication Department of Radiology in [address] [address] Anuel Nunn M.D. Blanca [employer]ube Follow Up 10/22/2024 Clinical Communication Department of Oncology in [address] [address] Pablo Vo M.D. from Last 3 Months Immunizations Immunization Administration [...] drink = 0.6 oz pur e alcohol) [facility] [employer] Answer Date Recorded In the past 12 months has e [employer], gas, oil, or water [employer] threatened to shut off services in your [...] week 10/18/2022 How often do you attend [facility] or yarsanism services? Never 10/18/2022 Do you belong to any clubs o r organizations such as temple groups, unions, fraternal or athletic groups, or [...] 0 02/07/2024 [facility] - Occupational Stress Questionnaire Answer [...] have a [facility] place to live 11/08/2024 Education Answer Date Recorded What is the highest level of school you have completed or the highest degree you have received? 12th grade 10/18/2022 Sex and Gender Information Value Date Recorded Sex Assigned at Male 06/26/2018 4:20 PM SUPERVISOR WATER SOFTENER SERVICE Legal Sex Male 3:33 AM SUPERVISOR WATER SOFTENER SERVICE Gender Identity Not on file Sexual Orientation [...] Body Mass Index 34.23 09/15/2024 3:21 PM SUPERVISOR WATER SOFTENER SERVICE Plan of Treatment Upcoming Encounters Date Type Department Care Team (Late st Contact Info) Description 02/06/2025 9:00 AM CDT Appointment Department of Radiology in [place], [place] [address] [place] [address] Pablo Vo M.D. [address] [place] [address] 02/11/2025 2:40 PM CDT Office Visit Department of Oncology in [place], [place] [address] [place] [phone] Pablo Vo M.D. [address] [facility] [place] [phone] Health Maintenance Due Date Last Done Comments [...] Additional history exists Potassium Level 12/03/2025 12/03/2024, 04/0 02/2025, 09/15/2024, Additional history exists Sodium Level [...] this topic Medical Devices Implanted Type Area Brick Off Bearer Device Identifier Shelf Expiration Date Model / Serial / Lot Scrw St 24pthrd 8.0x105 - [id number] Implanted:Qty : 1 on 12/15/2022 by Jana Don M.D. at [facility] Hardware e.g. pins/screws/ rods Right: Femur [employer] 380-5105- 024 / / Scrw Vthrd Fast 7.0x105 - [id number] Implanted:Qty : 2 on 12/15/2022 by Jana Don M.D. at [facility] Hardware e.g. pins/screws/ rods Right: Femur [employer] [id number] / / Washr Flt 1.5x13 - [id number] Implanted:Qty : 4 on 12/15/2022 by Jana Don M.D. at [facility] Hardware e.g. pins/screws/ rods Right: Femur [...] Hyperlipidemia On Treatment Atherosclerotic Heart Disease Of [place] Coronary Artery Without Angina Pectoris LIPID PANEL, S Routine 11/05/2024 9:32 AM CDT Cholecystitis Preoperative Examination Cardiovascular Hyperlipidemia On Treatment Atherosclerotic Heart Disease Of [place] Coronary Artery Without Angina Pectoris ECG Routine [...] + SUSC Timed 10/24/2024 10:[address] ABDOMEN PELVIS WITH IV CONTRAST RAD - Semiurgent (Fast; most ED patients; some inpatients) 09/15/2024 1:13 PM SUPERVISOR WATER SOFTENER SERVICE COMPREHENSIVE METABOLIC PANEL, S/P STAT 09/15/2024 12:38 PM SUPERVISOR WATER SOFTENER SERVICE from Last 3 Months or Most Recently Relevant to Health Maintenance Results * US Lower Extremity Veins Bilateral [...] and management can be found on the [employer] site. Link [email or web address]/clinical-[email or web address]/[email or web address] [email or web address] Procedure Note Codey Saavedra M.D. - 11/14/2024 [...] thrombosis and management can be found on theAskBycleryoExpert site. [email or web address]/clinical-[email or web address]/[email or web address] [email or web address] 1725 IMPRESSION: Negative for acute DVT. us [...] ventricular dysfunction are absent. Pablo Vo M.D. [facility] PROCEDURES Final Result * Creatinine with [...] Vo M.D. LAB BLOOD ADD-ON Final Result [facility] [address] [place] [address], [place] OWAT [facility] in [place] [address] [place] [address] * ECHO STRESS 2D WITH COLOR, DOPPLER [...] per Echocardiography Contrast Administration Protocol Reference Document [id number] Rev 11/04/2021. Patient met an inclusion criterion [...] administered per EchocardiographyContrast Administration Protocol Reference Document [id number] Rev11/04/2021. Patient met an inclusion criterion and did not havecontraindications in screening sections. For the complete report, see the Order-Level Documents. us Thaddeus Li M.D. CV ECHO PROCEDURES Nieves l Result * (ABNORMAL) Lipid Panel (11/05/2024 9:32 [...] Li M.D. LAB BLOOD ADD-ON Final Result [facility] [address] [facility] [place] [address], [place] [facility] [facility] in [place] [address] [place] [address] * ECG 12 Lead (11/05/2024 7:43 AM CDT) Ventricular Rate ECG/Min 62 BPM MUSE SD Interval 210 ms MUSE QRSD Interval 102 ms MUSE QT Interval 396 ms MUSE QTC Interval 401 ms MUSE P [place] 52 degrees MUSE R [place] -16 degrees MUSE T Wave [place] 46 degrees MUSE 11/05/2024 7:43 AM CDT [...] medications. Patient education provided by a care steamboat pilot. Patient was ready to learn with no apparent learning barriers were identified. Post-procedure care explained; patient expressed understanding of the content. PROCEDURE DETAILS: Sedation: None. Sedation time: Not applicable. Estimated Blood Loss: Less than 10 mL. TECHNIQUE: Imaging guidance for catheter exchange: Fluoroscopy with permanent image storage Access side: Right lateral abdomen intercostal transhepatic Catheter: 14 Swedish 25 cm multipurpose pigtail drain Technique: The indwelling 12 Swedish catheter was injected with contrast. A guidewire was inserted through the catheter, and the catheter was exchanged for a new 47 Swedish catheter. Contrast was injected confirming the location [...] routine catheter exchange. Catheter upsized to 14 Swedish. If patient remains not a surgical candidate, [...] medications. Patient education provided by a care steamboat pilot. Patient was ready to learn withno apparent learning barriers were identified. Post-procedure careexplained; patient expressed understanding of the content. PROCEDURE DETAILS: Sedation: None. Sedation time: Not applicable. Estimated Blood Loss: Less than 10 mL. TECHNIQUE: Imaging guidance for catheter exchange: Fluoroscopy with permanent imagestorage Access side: Right lateral abdomen intercostal transhepatic Catheter: 14 Swedish 25 cm multipurpose pigtail drain Technique: The indwelling 12 Swedish catheter was injected with contrast. Aguidewire was inserted through the catheter, and the catheter wasexchanged for a new 47 Swedish catheter. Contrast was injected confirmingthe location of [...] a routine catheter exchange.Catheter upsized to 14 Swedish. If patient remains not a surgicalcandidate, may [...] OR DERABLES Final Result Performing Organization Address City/[facility]/ZIP Co de Phone Number [facility] [address] [place] [phone], [facility] [address] [place] [phone] * (ABNORMAL) Gram Stain (10/24/2024 10:09 AM CDT) Gram Stain White blood cells, Many.(A) 10/24/2024 11:22 AM CDT MKTO Gram Stain GRAM POSITIVE COCCUS RESEMBLING STREPTOCOCCUS Moderate. (A) 10/24/2024 11:22 AM CDT MKTO Fluid (Gallbladder) 10/24/2024 10:09 AM CDT 10/24/2024 10:36 AM CDT Comment:Specimen Source Site : Fluid Anuel Nunn M.D. LAB MICROBIOLOGY - GENERAL OR DERABLES Final Result Performing Organization Address [facility] Co de Phone Number [facility] [address] [place] [address], [address] [address] * Fungal Culture, Routine (10/24/2024 10:09 AM CDT) Fungal Culture, Routine No growth after 24 days of incubation. 11/17/2024 1:01 PM CDT DTL Fluid (Gallbladder) 10/24/2024 10:09 AM CDT 10/24/2024 10:05 PM CDT Comment:Specimen Source Site : Fluid Anuel Nunn M.D. LAB MICROBIOLOGY - GENERAL OR DERABLES Final Result Performing Organization Address City/[facility]/ZIP Co de Phone Number [facility] [address] [place] [address], [place] DTL [facility] [address] [place] [address] * Bacterial Culture, Anaerobic + Susceptibility (10/24/2024 10:09 AM CDT) Bacterial Culture, Anaerobic No growth after 7 days of incubation. 10/31/2024 8:02 AM CDT CYRIL Fluid (Gallbladder) 10/24/2024 10:09 AM CDT 10/24/2024 10:36 AM CDT Comment:Specimen Source Site : Fluid us Anuel Nunn M.D. LAB MICROBIOLOGY - GENERAL OR DERABLES Final Result [facility] [address] [place] [address], [facility] MKTO [facility] in [place] [address] [place] [address] * CT Abdomen Pelvis with IV Contrast (09/15/2024 1:13 PM SUPERVISOR WATER SOFTENER SERVICE) Anatomical Region Laterality Modality Abdomen, Pelvis, Abdominal R ST LOS, Abdominal ARZ LOS, Abdominal FLA LOS N/A Computed Tomography 09/15/2024 1:11 PM SUPERVISOR WATER SOFTENER SERVICE Impressions 09/15/2024 2:46 PM SUPERVISOR WATER SOFTENER SERVICE 1. Cholecystostomy tube remains in place and gallbladder remains decompressed. 2. No findings of new pathology. Narrative 09/15/2024 2:46 PM SUPERVISOR WATER SOFTENER SERVICE EXAM: CT ABDOMEN PELVIS WITH IV CONTRAST [...] findings of new pathology. Shara Kaplan D.O. [facility] PROCEDURES Final Res ult from Last 3 Months or Most Recently Relevant to Health Maintenance Insurance MEDICA Advance Directives For more information, please contact: [phone] Documents on File Type Date Recorded Patient Lvn Lpn Expl anation Advance Directives 08/08/2024 6:58 AM [...] Answer Comments Full Code: Discussed Care Teams Board Design Engineer Relationship Specialty Start Date End Date Jeff Reyes M.D. [address] [place] [phone] PCP - General 03/14/24
--- OUTSIDE RECORDS SUMMARY | 2025-01-03 14:17 | XMS_ITS | Encounter Summary ---
Author Organization [facility] Address [address] [place] [address] Care Team Providers Care Commercial Real Estate Agent Name Role Phone Jeff Reyes M.D. Primary Care Provider [phone] Encounter Details Date Type Department Care Team (Late st Contact Info) Description 11/12/2024 Clinical Communication Department of Family Medicine, [facility], in [place], [place] [address] [place] [phone] Jeff Reyes M.D. [address] [place] [address] Social History Tobacco Use Types Packs/Day Years Used Date Smoking Tobacco: Former Cigarettes Q uit: 1977 Passive Smoke Exposure: Never Alcohol Use Standard Drinks/Week Comments Not Currently 1 (1 standard drink = 0.6 oz pur e alcohol) [facility] Utilities Answer Date Recorded In the [...] often do you attend chur ch or gnosticist services? Never 10/18/2022 Do you belong to any clubs o r organizations such as worship groups, unions, fraternal or athletic groups, or [...] Answer Date Recorded PHQ-2 Score 0 02/07/2024 [facility] of Occupat ional Health - Occupational Stress [...] Sex Assigned at Male 06/26/2018 4:20 PM LEGAL WORD PROCESSOR Legal Sex Male 3:33 AM LEGAL WORD PROCESSOR Gender Identity Not on file Sexual Orientation Not on file documented as of this encounter Plan of Treatment Upcoming Encounters Date Type Department Care Team (Late st Contact Info) Description 02/06/2025 9:00 AM CDT Appointment Department of Radiology in [place], [place] [address] [place] [address] Pablo Vo M.D. [address] [place] [phone] 02/11/2025 2:40 PM CDT Office Visit Department of Oncology in [place], [place] [address] [place] [address] Pablo Vo M.D. [address] [place] [phone] documented as of this encounter Visit Diagnoses Not on filedocumented in this encounter Additional Health Concerns Assessment Noted Time PHQ-9 Depression Total Score: 10 018 11:00 AM CDT documented as of this encounter Care Teams Commercial Real Estate Agent Relationship Specialty Start Date End Date Jeff Ryees M.D. [address] [place] [phone] PCP - General 03/14/24 documented as of this encounter
--- OUTSIDE RECORDS SUMMARY | 2025-01-03 14:17 | XMS_ITS | Encounter Summary ---
Author Organization [facility] Address [address] [place] [address] Care Team Providers Care Archivist Military History Name Role Phone Jeff Reyes M.D. Primary Care Provider [phone] Encounter Details Date Type Department Care Team (Late st Contact Info) Description 12/03/2024 Orders Only [facility] [address] [place] [phone] Jeff Reyes M.D. [address] [place] [address] Screening Cancer Colon Social History Tobacco Use Types Packs/Day Years Used Date Smoking Tobacco: Former Cigarettes Q uit: 1977 Passive Smoke Exposure: Never Alcohol Use Standard Drinks/Week Comments Not Currently 1 (1 standard drink = 0.6 oz pur e alcohol) [facility] Utilities Answer Date Recorded In the past 12 months has [employer], gas, oil, or water [employer] threatened to shut off services in your [...] often do you attend chur ch or confucianism services? Never 10/18/2022 Do you belong to [...] 0 02/07/2024 [facility] of Occupat ional Health - Occupational [...] your living situation today? I have a [facility]'s place to live 11/08/2024 Education Answer Date Recorded What is the highest level of school you have completed or the highest degree you have received? 12th grade 10/18/2022 Sex and Gender Information Value Date Recorded Sex Assigned at Male 06/26/2018 4:20 PM GRAIN MIXER Legal Sex Male 3:33 AM GRAIN MIXER Gender Identity Not on file Sexual Orientation Not on file documented as of this encounter Plan of Treatment Upcoming Encounters Date Type Department Care Team (Late st Contact Info) Description 02/06/2025 9:00 AM CDT Appointment Department of Radiology in [place], [place] [address] [place] [address] Pablo Vo M.D. [address] [place] [phone] 02/11/2025 2:40 PM CDT Office Visit Department of Oncology in [place], [place] [address] [place] [address] Pablo Vo M.D. [address] [place] [phone] Scheduled Orders Name Type Priority Associated Diagnoses Orde r Schedule Cologuard - Sent Out Lab Lab Routine Screening Cancer Colon Expected: 12/17/2024, Expires: 03/05/2026 documented as of this encounter Visit Diagnoses Diagnosis Screening Cancer Colon documented in this encounter Additional Health Concerns Assessment Noted Time PHQ-9 Depression Total Score: 10 018 11:00 AM CDT documented as of this encounter Care Teams Archivist Military History Relationship Specialty Start Date End Date Jeff Reyes M.D. [address] [place] [address] PCP - General 03/14/24 documented as of this encounter
--- OUTSIDE RECORDS SUMMARY | 2025-01-03 14:17 | XMS_ITS | Encounter Summary ---
Author Organization [facility] Address [address] [place] [address] Care Team Providers Care Chainsaw Mechanic Name Role Phone Jeff Reyes M.D. Primary Care Provider [phone] [phone] Encounter Details Date Type Department Care Team (Late st Contact Info) Description 12/17/2024 Orders Only [facility] SELF TEST [facility] [address] [place] [phone] Jeff Reyes M.D. [address] [place] [address] Screening Cancer Colon Social History Tobacco Use Types Packs/Day Years Used Date Smoking Tobacco: Former Cigarettes Q uit: 1977 Passive Smoke Exposure: Never Alcohol Use Standard Drinks/Week Comments Not Currently 1 (1 standard drink = 0.6 oz pur e alcohol) [facility] Utilities Answer Date Recorded In the past 12 months has [email or web address], gas, oil, or water [email or web address] threatened to shut off services in your [...] often do you attend chur ch or bahai services? Never 10/18/2022 Do you belong to [...] your living situation today? I have a [facility] place to live 11/08/2024 Education Answer Date Recorded What is the highest level of school you have completed or the highest degree you have received? 12th grade 10/18/2022 Sex and Gender Information Value Date Recorded Sex Assigned at Male 06/26/2018 4:20 PM PICCOLO MECHANIC Legal Sex Male 3:33 AM PICCOLO MECHANIC Gender Identity Not on file Sexual Orientation Not on file documented as of this encounter Plan of Treatment Upcoming Encounters Date Type Department Care Team (Late st Contact Info) Description 02/06/2025 9:00 AM CDT Appointment Department of Radiology in [place], [place] [address] [place] [address] Pablo Vo M.D. [address] [place] [phone] 02/11/2025 2:40 PM CDT Office Visit Department of Oncology in [place], [place] [address] [place] [address] Pablo Vo M.D. [address] [facility] [place] [phone] documented as of this encounter Visit Diagnoses Diagnosis Screening Cancer Colon documented in this encounter Additional Health Concerns Assessment Noted Time PHQ-9 Depression Total Score: 10 018 11:00 AM CDT documented as of this encounter Care Teams Chainsaw Mechanic Relationship Specialty Start Date End Date Jeff Reyes M.D. [address] [place] [address] PCP - General 03/14/24 documented as of this encounter
--- OUTSIDE RECORDS SUMMARY | 2025-01-03 14:17 | XMS_ITS | Encounter Summary ---
Author Organization [facility] Address [address] [place] [address] Care Team Providers Care Pc Analyst Name Role Phone Jeff Reyes M.D. Primary Care Provider [phone] Reason for Referral * MRI/CAT/PET Scan (Routine) - Authorized Specialty Diagnoses / Procedures Referred By Joon donohue Referred To Contact Radiology Diagnoses Embolus Pulmonary (HCC) Procedures CT Chest Angiogram with IV Contrast Pablo Vo M.D. [address] [place] [address] Phone: tel: fax: [facility] Region Referral ID Status Reason Start Date Expiration Date V isits Requested Visits Authorized [id number] Authorized 11/14/2024 02/14/2026 1 1 Encounter Details Date Type Department Care Team (Late st Contact Info) Description 11/14/2024 Results Follow-Up Department of Oncology in [place], [place] [address] [place] [address] Pablo Vo M.D. [address] [place] [phone] CT Chest Angiogram and Pulmonary Arteries with IV Contrast Social History Tobacco Use Types Packs/Day Years Used Date Smoking Tobacco: Former Cigarettes Q uit: 1977 Passive Smoke Exposure: Never Alcohol Use Standard Drinks/Week Comments Not Currently 1 (1 standard drink = 0.6 oz pur e alcohol) [facility] Utilities Answer Date Recorded In [...] How often do you attend chur or religion services? Never 10/18/2022 Do you belong to any clubs o r organizations such as latter-day groups, unions, fraternal or athletic groups, or [...] Answer Date Recorded PHQ-2 Score 0 02/07/2024 [facility] [place] of Occupat ional Health - Occupational Stress [...] Sex Assigned at Male 06/26/2018 4:20 PM DOCUMENT IMPROVEMENT SPECIALIST Legal Sex Male 3:33 AM DOCUMENT IMPROVEMENT SPECIALIST Gender Identity Not on file Sexual Orientation Not on file documented as of this encounter Plan of Treatment Upcoming Encounters Date Type Department Care Team (Late st Contact Info) Description 02/06/2025 9:00 AM CDT Appointment Department of Radiology in [place], [place] [address] [phone] Pablo Vo M.D. [address] [place] [phone] 02/11/2025 2:40 PM CDT Office Visit Department of Oncology in [place], [place] [address] [address] Pablo Vo M.D. [address] [place] [phone] Scheduled Orders Name Type Priority Associated Diagnoses [...] documented as of this encounter Care Teams Pc Analyst Relationship Specialty Start Date End Date Jeff Reyes M.D. Gayle [place] [phone] PCP - General 03/14/24 documented as of this encounter
--- OUTSIDE RECORDS SUMMARY | 2025-01-03 14:18 | XMS_ITS | Encounter Summary ---
Author Organization [facility] Address [address] [place] [address] Care Team Providers Care Cash Poster Name Role Phone Jeff Reyes M.D. Primary Care Provider [phone] Encounter Details Date Type Department Care Team (Late st Contact Info) Description 10/22/2024 Clinical Communication Department of Oncology in [place], [place] [address] [address] Pablo Vo M.D. [address] [place] [address] Social History Tobacco Use Types Packs/Day Years Used Date Smoking Tobacco: Former Cigarettes Q uit: 1977 Passive Smoke Exposure: Never Alcohol Use Standard Drinks/Week Comments Not Currently 1 (1 standard drink = 0.6 oz pur e alcohol) [facility] Utilities Answer Date Recorded In the past 12 months has [employer], gas, oil, or water [employer] threatened to shut off services in your [...] any clubs o r organizations such as roman catholic groups, unions, fraternal or athletic groups, or [...] living situation today? I have a [facility] place to live 11/08/2024 Education Answer Date Recorded What is the highest level of school you have completed or the highest degree you have received? 12th grade 10/18/2022 Sex and Gender Information Value Date Recorded Sex Assigned at Male 06/26/2018 4:20 PM CHILDREN'S LUNCHROOM SUPERVISOR Legal Sex Male 3:33 AM CHILDREN'S LUNCHROOM SUPERVISOR Gender Identity Not on file Sexual Orientation Not on file documented as of this encounter Plan of Treatment Upcoming Encounters Date Type Department Care Team (Late st Contact Info) Description 02/06/2025 9:00 AM CDT Appointment Department of Radiology in [place], [place] [address] [place] [address] Pablo Vo M.D. [address] [place] [phone] 02/11/2025 2:40 PM CDT Office Visit Department of Oncology in [place], [place] [address] [place] [address] Pablo Vo M.D. [address] [facility] [place] [address] documented as of this encounter Visit Diagnoses Not on filedocumented in this encounter Additional Health Concerns Infection Onset Date Last Indicated Resolved Time MDR GNB 10/24/2024 10/24/2024 10/27/2024 6:33 AM CDT Assessment Noted Time PHQ-9 Depression Total Score: 10 018 11:00 AM CDT documented as of this encounter Care Teams Cash Poster Relationship Specialty Start Date End Date Jeff Reyes M.D. [address] [place] [phone] PCP - General 03/14/24 documented as of this encounter
--- OUTSIDE RECORDS SUMMARY | 2025-01-03 14:18 | XMS_ITS | Encounter Summary ---
Author Organization [facility] Address [address] [place] [address] Care Team Providers Care Social Work Professor Name Role Phone Jeff Reyes M.D. Primary Care Provider [phone] Reason for Visit * Reason Onset Date Comments Blanca Tube Follow Up 10/23/2024 Encounter Details Date Type Department Care Team (Latest Contact Info) Description 10/23/2024 Clinical Communication Department of Radiology in [place], [place] [address] [place] [phone] Anuel Nunn M.D. [facility] [place] [phone] Blanca Tube Follow Up Social History Tobacco Use Types Packs/Day Years Used Date Smoking Tobacco: Former Cigarettes Q uit: 1977 Passive Smoke Exposure: Never Alcohol Use Standard Drinks/Week Comments Not Currently 1 (1 standard drink = 0.6 oz pur e alcohol) [facility] Utilities Answer Date Recorded In the [...] often do you attend chur ch or temple services? Never 10/18/2022 Do you belong to any clubs o r organizations such as gnosticism groups, unions, fraternal or athletic groups, or [...] Answer Date Recorded PHQ-2 Score 0 02/07/2024 [facility] [place] of Occupat ional Health - Occupational Stress [...] today? I have a [facility] place to live 11/08/2024 Education Answer Date Recorded What is the highest level of school you have completed or the highest degree you have received? 12th grade 10/18/2022 Sex and Gender Information Value Date Recorded Sex Assigned at Male 06/26/2018 4:20 PM SOLE CEMENTER Legal Sex Male 3:33 AM SOLE CEMENTER Gender Identity Not on file Sexual Orientation [...] Fuentes R.N. - 10/23/2024 3:08 PM CDT I[employer] And Glaze [employer] reached out to Bekah, care taker from [facility] regarding some concerns she had with patient's blanca tube coming out and not flushing properly. Icing And Glaze Maker left a VM asking [facility]phone IR clinic nursing back to come up with a plan. Contact phone number left. Electronically signed by: Katiuska Fuentes R.N. 10/23/24 3:10 PM CDT documented in this encounter Plan of Treatment Upcoming Encounters Date Type Department Care Team (Late st Contact Info) Description 02/06/2025 9:00 AM CDT Appointment Department of Radiology in [place], [place] [address] [address] Pablo Vo M.D. [address] [place] [phone] 02/11/2025 2:40 PM CDT Office Visit Department of Oncology in [place], [place] [address] [place] [phone] Pablo Vo M.D. [address] [place] [address] documented as of this encounter Visit Diagnoses Not on filedocumented in this encounter Additional Health Concerns Infection Onset Date Last Indicated Resolved Time MDR GNB 10/24/2024 10/24/2024 10/27/2024 6:33 AM CDT Assessment Noted Time PHQ-9 Depression Total Score: 10 018 11:00 AM CDT documented as of this encounter Care Teams Social Work Professor Relationship Specialty Start Date End Date Jeff Reyes M.D. [address] [place] [phone] PCP - General 03/14/24 documented as of this encounter
--- OUTSIDE RECORDS SUMMARY | 2025-01-03 14:18 | XMS_ITS | Encounter Summary ---
Author Organization [facility] Address [address] [place] [address] Care Team Providers Care Emergency Specialist Name Role Phone Jeff Reyes M.D. Primary Care Provider [phone] Encounter Details Date Type Department Care Team (Latest Contact Info) Description 08/07/2024 Intake [facility] Social History Tobacco Use Types Packs/Day Years Used Date Smoking Tobacco: Former Cigarettes Q uit: 1977 Passive Smoke Exposure: Never Alcohol Use Standard Drinks/Week Comments Not Currently 1 (1 standard drink = 0.6 oz pur e alcohol) [facility] Utilities Answer Date Recorded In the past 12 months has e electric, gas, oil, or water [employer] threatened to shut off services in your [...] often do you attend chur ch or zoroastrianism services? Never 10/18/2022 Do you belong to any clubs o r organizations such as catholic groups, unions, fraternal or athletic groups, [...] Answer Date Recorded PHQ-2 Score 0 02/07/2024 [facility] of Occupat ional Health [...] Sex Assigned at Male 06/26/2018 4:20 PM ELEVATOR SERVICE MECHANIC Legal Sex Male 3:33 AM ELEVATOR SERVICE MECHANIC Gender Identity Not on file Sexual Orientation Not on file documented as of this encounter Plan of Treatment Upcoming Encounters Date Type Department Care Team (Late st Contact Info) Description 02/06/2025 9:00 AM CDT Appointment Department of Radiology in [place], [place] [address] [phone] Pablo Vo M.D. [address] [place] [phone] 02/11/2025 2:40 PM CDT Office Visit Department of Oncology in [place], [place] [address], [place] [address] Pablo Vo M.D. [address] [place] [address] documented as of this encounter Visit Diagnoses Not on filedocumented in this encounter Additional Health Concerns Infection Onset Date Last Indicated Resolved Time MDR GNB 10/24/2024 10/24/2024 10/27/2024 6:33 AM CDT Assessment Noted Time PHQ-9 Depression Total Score: 10 018 11:00 AM CDT documented as of this encounter Care Teams Emergency Specialist Relationship Specialty Start Date End Date Jeff Reyes M.D. [address] [place] [address] PCP - General 03/14/24 documented as of this encounter
--- OUTSIDE RECORDS SUMMARY | 2025-01-03 14:19 | XMS_ITS | Patient Health Record ---
Author Organization [facility] Address [address] [place] [address] Care Team Providers Care Tmh Teacher Name Role Phone Rubén Paez MD Primary Care Provider Melody Sondra Chenurszula Unavailable [phone] Reason For Referral No Information Social History Tobacco Use: Social History Observation Description Date Details (start date - stop date) Former Smoker NA - NA Tobacco Use/Smoking Question Answer Notes Are you a former smoker Section Notes: FAMILY HISTORY: HISTORY OF FAMILY PSYCH: Problems Problem Type SNOMED Code ICD Code Onset Dates Problem Status W/U Status Risk Notes Problem Tinea unguium (670419125) Tinea unguium (B35.1) Active confirmed Problem 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 Problem Pressure injury of right buttock stage III (disorder) (1022510646954 4) Pressure ulcer of right buttock, stage 3 (L89.313) Active confirmed Problem Pressure injury of right heel stage IV (disorder) (1311496525461 7) Pressure ulcer of right heel, stage 4 (L89.614) Active confirmed Plan Of Treatment No Information Insurance Providers Payer Name Payer Address Payer Phone Subscriber Number Group Number Insured Name Patient Relationship to Insured Coverage Start Date Coverage End Date [employer] [address] (Government Programs) [address] [address] [place], [place] [id number] Ren Ramirez Self - patient is the insured 7 [employer] [address] [place] [address] [id number] Ren Ramirez Self - patient is the insured 3
--- NOTE | 2025-01-03 14:40 | ED.GENADULT ---
HPI - General Adult General Chief complaint: Skin/Abscess/Foreign Body Stated complaint: Pressure ulcer Time Seen by Provider: 01/03/25 14:17 Source: patient and EMS Mode of arrival: EMS Limitations: other (Poor historian) History of Present Illness HPI narrative: 75-year-old male brought from [facility] to the ER via EMS secondary to a worsening pressure ulcer. According to EMS staff call them because they felt that his ulcer is not improving. Spoke to Maribel at [facility] - stated that [employer] sent him in because the wound is malodorous and he is more confused than normal. He was calling his family at 3am last night and saying that he did not know where he was. Patient is currently not on antibiotic treatment. He is supposed to get an appointment with ID and plastic surgery at [facility] for a possible flap, [facility] has not heard back from [facility] in this appointment has not yet been scheduled. Per staff at [facility], the patient has had no fevers, no vomiting. Patient had an appointment with Dr. Leon 2 days ago - a continued decline was mentioned at that visit. However his ischial wound appear to be better according to the note with minimal necrotic tissue. The back wound looked worse. Related Data Home Medications ?Medication ?Instructions ?Recorded ?Confirmed acetaminophen 500 mg tablet 1,000 mg PO TID 08/07/24 12/12/24 calcium carbonate (Zachary-Gest 400 mg PO BID 08/07/24 12/12/24 Antacid) cholecalciferol (vitamin D3) 25 25 mcg PO DAILY 08/07/24 12/12/24 mcg (1,000 unit) tablet (Vitamin D3) furosemide 40 mg tablet 40 mg PO DAILY 08/07/24 12/12/24 lisinopril 40 mg tablet 40 mg PO DAILY 08/07/24 12/12/24 metoprolol succinate 100 mg 100 mg PO DAILY 08/07/24 12/12/24 tablet,extended release 24 hr pantoprazole 40 mg tablet,delayed 40 mg PO BID 08/07/24 12/12/24 release polyethylene glycol 3350 17 17 g PO DAILY 08/07/24 12/12/24 gram/dose oral powder potassium chloride 10 mEq 10 meq PO BIDWM 08/07/24 12/12/24 capsule,extended release apixaban 5 mg tablet (Eliquis) 5 mg PO BID 11/16/24 12/12/24 atorvastatin 80 mg tablet 80 mg PO HS 11/16/24 12/12/24 bacitracin 500 unit/gram topical 1 applic topical BID 11/16/24 12/12/24 ointment baclofen 10 mg tablet 10 mg PO BID 11/16/24 12/12/24 bisacodyl 10 mg rectal suppository 10 mg SC DAILY PRN 11/16/24 12/12/24 diclofenac sodium 1 % topical gel 2 g topical BID PRN 11/16/24 12/12/24 furosemide 20 mg tablet 20 mg PO QPM 11/16/24 12/12/24 latanoprost 0.005 % eye drops 1 drp ophthalmic (eye) HS 11/16/24 12/12/24 ondansetron HCl 4 mg tablet 4 mg PO Q6H PRN 11/16/24 12/12/24 sennosides 8.6 mg-docusate sodium 2 tab-cap PO DAILY 11/16/24 12/12/24 50 mg tablet (Senna Plus) carbamide peroxide 6.5 % ear drops 5 drp otic (ear) Q7D 11/17/24 12/12/24 (Ear Wax Removal Kit) clotrimazole 1 % topical cream 1 applic topical BID 12/12/24 12/12/24 Previous Rx's ?Medication ?Instructions ?Recorded allopurinol 100 mg tablet 100 mg PO DAILY #30 tabs 11/19/24 amoxicillin 250 mg capsule 500 mg (2 x 250 mg) PO TID #21 caps 12/16/24 ferrous sulfate 325 mg (65 mg 325 mg PO DAILY #30 tabs 12/16/24 iron) tablet metformin 500 mg tablet,extended 1,000 mg (2 x 500 mg) PO DAILY #60 12/16/24 release 24 hr tabs sulfamethoxazole 800 1 tab PO BID #14 tabs 12/16/24 mg-trimethoprim 160 mg tablet Allergies Allergy/AdvReac Type Severity Reaction Status Date / Time Haemophilus B polysaccharide Allergy Unknown Verified 01/03/25 14:25 conj w vancomycin Allergy Unknown Verified 01/03/25 16:25 Review of Systems Status of ROS: Reports: 6 or more systems reviewed and unremarkable except as noted in History and below (Per staff at [facility]) [facility] Medical History Lymphedema ?I89.0 - Lymphedema, not elsewhere classified (ICD-10) Pulmonary embolism ?I26.99 - Other pulmonary embolism without acute cor pulmonale (ICD-10) Diabetes mellitus ?E11.9 - Type 2 diabetes mellitus without complications (ICD-10) Stage III pressure ulcer of sacral region ?L89.153 - Pressure ulcer of sacral region, stage 3 (ICD-10) Stage III pressure ulcer of buttock ?L89.303 - Pressure ulcer of unspecified buttock, stage 3 (ICD-10) Pressure ulcer of coccygeal region, stage 1 ?L89.151 - Pressure ulcer of sacral region, stage 1 (ICD-10) Neurogenic bowel ?K59.2 - Neurogenic bowel, not elsewhere classified (ICD-10) Hyperuricemia ?E79.0 - Hyperuricemia without signs of inflammatory arthritis and tophaceous disease (ICD-10) Hyperlipidemia ?E78.5 - Hyperlipidemia, unspecified (ICD-10) Hypertension ?I10 - Essential (primary) hypertension (ICD-10) Coronary artery disease ?I25.10 - Atherosclerotic heart disease of k[place] coronary artery without angina pectoris (ICD-10) Fracture, intertrochanteric, right femur ?S72.141A - Displaced intertrochanteric fracture of right femur, initial encounter for closed fracture (ICD-10) Sleep apnea ?G47.30 - Sleep apnea, unspecified (ICD-10) Eason catheter in place ?Z97.8 - Presence of other specified devices (ICD-10) Neurogenic bladder ?N31.9 - Neuromuscular dysfunction of bladder, unspecified (ICD-10) Obesity ?E66.9 - Obesity, unspecified (ICD-10) Multiple sclerosis ?G35 - Multiple sclerosis (ICD-10) Surgical History H/O insertion of cholecystostomy tube ?Z98.890 - Other specified postprocedural states (ICD-10) Family History Father Coronary artery disease High blood pressure High cholesterol Sleep apnea Social History Narrative: Resident of [facility]. Daughter Malika is healthcare power of associate attorney. Code status is DNR. Remote history of smoking What is your current living situation?: I presently have a place to live Problems where you live: no known problems Problems where you live details: NA In the past 12 months, utilities in danger of being shut off: no In past 12 months, lack of transportation kept you from medical appts, meetings, work, or getting things needed for daily living: no In the past 12 mos, have been you worried that your food would run out before you had money to buy more?: never true In the past 12 mos, the food you bought just didn't last and you didn't have money to buy more?: never true Highest level of school completed/degree received: 12th grade, no diploma Smoking Status: Former smoker What tobacco products do you use: cigarettes Smoking quit date/years: >15 years ago Do you use any of these nicotine containing products: None Second hand tobacco smoke exposure: No How often do you have a drink containing alcohol: monthly or less Alcohol type: beer Alcohol type details: on rare occasion How many standard drinks containing alcohol do you have on a typical day: 1 or 2 How often do you have six or more drinks on one occasion: Never AUDIT-C Alcohol total score: 1 Non-prescribed substance use: denies use Caffeine: Yes (tea and coffee) How often does anyone, including family, friends and others, physically hurt you: unable to answer How often does anyone, including family, friends and others, insult or talk down to you: unable to answer How often does anyone, including family, friends and others, threaten you with harm: unable to answer How often does anyone, including family, friends and others, scream or curse at you: unable to answer service: No Exam Narrative: Exam Narrative: Eason catheter Cholecystostomy tube Rather large sacral wound with packing in place. Wound does have a strong odor. Some necrotic tissue was visualized at the base of the wound but that is minimal. Wound edges are pink. Const: Vital Signs, click to edit/add: Vital Signs - 24 hr 01/03/25 14:21 01/03/25 14:31 01/03/25 14:42 Temperature 96.6 F L Pulse Rate 75 76 Pulse Rate [Left P ulse Oximeter] 75 Respiratory Rate 18 Blood Pressure 112/48 L Blood Pressure [Le ft Upper Arm] 137/57 L Pulse Oximetry 97 97 97 Oxygen Delivery Me thod Room Air 01/03/25 14:45 01/03/25 14:47 01/03/25 15:02 Temperature Pulse Rate 74 73 Pulse Rate [Left P ulse Oximeter] Respiratory Rate Blood Pressure 107/44 L 108/44 L Blood Pressure [Le ft Upper Arm] Pulse Oximetry 97 97 Oxygen Delivery Me thod 01/03/25 15:11 01/03/25 15:15 01/03/25 15:17 Temperature Pulse Rate 76 74 73 Pulse Rate [Left P ulse Oximeter] Respiratory Rate Blood Pressure 99/45 L Blood Pressure [Le ft Upper Arm] Pulse Oximetry 97 97 97 Oxygen Delivery Me thod 01/03/25 15:18 01/03/25 15:30 01/03/25 15:32 Temperature Pulse Rate 73 71 69 Pulse Rate [Left P ulse Oximeter] Respiratory Rate Blood Pressure 98/48 L Blood Pressure [Le ft Upper Arm] Pulse Oximetry 97 99 97 Oxygen Delivery Me thod 01/03/25 15:45 01/03/25 15:48 01/03/25 16:00 Temperature Pulse Rate 70 72 76 Pulse Rate [Left P ulse Oximeter] Respiratory Rate Blood Pressure 120/54 L Blood Pressure [Le ft Upper Arm] Pulse Oximetry 97 97 96 Oxygen Delivery Me thod 01/03/25 16:02 01/03/25 16:03 01/03/25 16:15 Temperature Pulse Rate 73 77 72 Pulse Rate [Left P ulse Oximeter] Respiratory Rate Blood Pressure 118/49 L Blood Pressure [Le ft Upper Arm] Pulse Oximetry 96 97 97 Oxygen Delivery Me thod 01/03/25 16:17 01/03/25 16:36 01/03/25 16:45 Temperature Pulse Rate 81 81 Pulse Rate [Left P ulse Oximeter] Respiratory Rate Blood Pressure 119/56 L Blood Pressure [Le ft Upper Arm] Pulse Oximetry 97 96 Oxygen Delivery Me thod 01/03/25 16:47 01/03/25 17:00 01/03/25 17:02 Temperature Pulse Rate 81 78 81 Pulse Rate [Left P ulse Oximeter] Respiratory Rate Blood Pressure 131/60 141/56 H Blood Pressure [Le ft Upper Arm] Pulse Oximetry 97 96 97 Oxygen Delivery Me thod 01/03/25 17:15 01/03/25 17:17 01/03/25 17:30 Temperature Pulse Rate 80 79 80 Pulse Rate [Left P ulse Oximeter] Respiratory Rate Blood Pressure 129/53 L Blood Pressure [Le ft Upper Arm] Pulse Oximetry 98 99 95 Oxygen Delivery Me thod 01/03/25 17:32 Temperature Pulse Rate 79 Pulse Rate [Left P ulse Oximeter] Respiratory Rate Blood Pressure 136/56 L Blood Pressure [Le ft Upper Arm] Pulse Oximetry 87 L Oxygen Delivery Me thod Course Course ED Course: IV was established. Patient's blood pressure did drop to 99/45, therefore 1 L of normal saline was started over 2 hours. Blood pressure came back up nicely. EKG, read by me, shows normal sinus rhythm with a first-degree AV block, pulse 75. CBC does not show an elevated white cell count, hemoglobin 10.4 with platelet count of 215. His CRP is elevated at just above 15 and his lactate was elevated at 2.8. Chemistries are otherwise unremarkable. Normal LFTs Normal troponin. Urinalysis is unremarkable. CT scan of the abdomen and pelvis looking to compare from previous CT done at the end of November shows increase in the size of his ulcer with some cortical destruction consistent with osteomyelitis that was previously not present. Indeterminate adrenal and renal nodules unchanged. Discussed patient with Dr. Tabares, who recommends broad-spectrum antibiotics and admission. Zosyn started at this time. Our hospitalist will be accepting the patient for admission at this time. Vital Signs Vital signs: Initial Vital Signs Temperature 96.6 F L 01/03/25 14:21 Temperature Source Temporal Artery Scan 01/03/25 14:21 Pulse Rate 75 01/03/25 14:21 Pulse Rhythm Regular 01/03/25 14:21 Pulse Strength 3+ Normal 01/03/25 14:21 Respiratory Rate 18 01/03/25 14:21 Blood Pressure 137/57 L 01/03/25 14:21 Blood Pressure Mean 83 01/03/25 14:21 Blood Pressure Position Supine 01/03/25 14:21 Pulse Oximetry 97 01/03/25 14:21 Oxygen Delivery Method Room Air 01/03/25 14:21 Vital Signs Temperature 96.6 F L 01/03/25 14:21 Pulse Rate 75 01/03/25 14:21 Respiratory Rate 18 01/03/25 14:21 Blood Pressure 137/57 L 01/03/25 14:21 Pulse Oximetry 97 01/03/25 14:21 Oxygen Delivery Method Room Air 01/03/25 14:21 Temperature 96.6 F L 01/03/25 14:21 Pulse Rate 79 01/03/25 17:32 Respiratory Rate 18 01/03/25 14:21 Blood Pressure 136/56 L 01/03/25 17:32 Pulse Oximetry 87 L 01/03/25 17:32 Oxygen Delivery Method Room Air 01/03/25 14:21 Medications Administered Medications: Discontinued Medications Generic Name Dose Route Start Last Admin Trade Name Freq PRN Reason Stop Dose Admin Sodium Chloride 1,000 mls @ 500 mls/hr 01/03/25 15:24 01/03/25 16:00 0.9 % Sodium Chloride 1000 Ml IV 01/03/25 17:23 500 mls/hr .Q2H BERONICA Administration Medical Decision Making MDM Narrative Medical decision making narrative: 75-year-old male with a decubitus ulcer, getting larger now with evidence of osteomyelitis. Patient will be admitted for further management. Medical Records Medical records reviewed: Yes I reviewed the patient's medical records Lab Data Lab results reviewed: Yes I reviewed the patient's lab results Labs: Lab Results 01/03/25 01/03/25 Range/Units 15:10 16:00 WBC 10.79 (4.50-11.00) K/uL RBC 4.22 L (4.30-5.90) m/uL Hgb 10.4 L (13.5-17.5) gm/dL Hct 35.9 L (37.0-53.0) % MCV 85 (80-100) fL MCH 25 L (26-34) pg MCHC 29 L (32-36) gm/dL RDW Coeff of Rey 19.4 H (11.5-15.5) % Plt Count 215 (140-440) K/uL Neut % (Auto) 74.4 H (42.0-72.0) % Lymph % (Auto) 16.2 L (20-44) % [place] % (Auto) 7.4 (0.0-11.0) % Eos % (Auto) 1.5 (0.0-7.0) % Baso % (Auto) 0.1 (0.0-3.0) % Neut # (Auto) 8.00 H (1.7-7.0) K/uL Lymph # (Auto) 1.70 (0.90-2.90) K/uL [place] # (Auto) 0.80 (0.00-0.90) K/UL Eos # (Auto) 0.16 (0.00-0.50) K/uL Baso # (Auto) 0.01 (0.00-0.30) K/uL Abs Immat Gran (auto) 0.04 (0.00-0.30) K/uL Imm/Tot Granulo (auto) 0.4 % Sodium 135 (135-149) mmol/L Potassium 4.9 (3.6-5.1) mmol/L Chloride 101 (96-114) mmol/L Carbon Dioxide 26 (20-32) mmol/L Anion Gap 8 (7-15) mEq/L BUN 49 H (7-30) mg/dL Creatinine 1.2 (0.5-1.5) mg/dL Estimated GFR 63 ml/min Glucose 151 H (60-115) mg/dL Lactate 2.8 H (0.5-1.9) mmol/L Calcium 9.4 (8.4-10.6) mg/dL Total Bilirubin 0.4 (0.1-1.5) mg/dL Direct Bilirubin 0.2 (0.0-0.5) mg/dL AST 21 (12-35) U/L ALT 22 (4-50) U/L Alkaline Phosphatase 94 (40-150) U/L Troponin I < 0.01 (0.01-0.04) ng/mL C-Reactive Protein 15.3 H (0.5-1.0) mg/dL Total Protein 6.7 (6.0-8.3) g/dL Albumin 3.4 (3.3-5.0) g/dL Procalcitonin 0.22 (<0.50) ng/mL Urine Color Yellow (Yellow) Urine Appearance Clear (Clear) Urine pH 5.0 (5.0-8.5) Ur Specific Marilla <= 1.005 (1.000-1.030) Urine Protein Negative (Negative) Urine Glucose (UA) Negative (Negative) Urine Ketones Negative (Negative) Urine Blood Negative (Negative) Urine Nitrite Negative (Negative) Urine Bilirubin Negative (Negative) Urine Urobilinogen 0.2 (0.2-1.0) Ur Leukocyte Esterase Trace A (Negative) Urine RBC 0-2 (0-2) Urine WBC 2-5 (0-5) Ur Squamous Epith Cells Few (None-Few) Urine Bacteria Few A (None) Imaging Data CT scan - abdomen: Attestation: I have reviewed the pertinent imaging results. Radiologist's impression: TECHNIQUE: CT abdomen and pelvis acquired with 116 mL Isovue 370 IV contrast. COMPARISON: CT abdomen/pelvis dated 12/12/2024. FINDINGS: Lower chest: No focal consolidation. Liver: No significant change in hypodense lesion at the right hepatic dome, with peripheral calcification. Additional subcentimeter hypodense lesion in segment 7, also unchanged. Gallbladder and bile ducts: Percutaneous cholecystostomy in place, unchanged. No significant biliary duct dilation. Pancreas: Atrophic. Spleen: Unremarkable. Adrenal glands: Stable indeterminate 1.5 cm right adrenal nodule. Kidneys: Kidneys enhance symmetrically, without hydronephrosis. Too small to characterize hypodense bilateral renal lesions. Stable indeterminate 1.3 cm exophytic lesion in the posterior left kidney (series 2, image 85). Retroperitoneum: No lymphadenopathy. Bowel and mesentery: Bowel is not obstructed. No significant ascites, no pneumoperitoneum. Normal appendix. Bladder: Decompressed in the presence of a Eason catheter. Nondependent air is present. Reproductive organs: No prostatomegaly. Pelvic lymph nodes: No lymphadenopathy. Vessels: Atherosclerotic calcifications. Abdominal wall: Large left posterior gluteal decubitus ulcer, significantly increased in size since prior study, with open wound extending to the level of the left ischial tuberosity. Cortical destruction of the left ischial tuberosity, compatible with osteomyelitis. Adjacent inflammatory changes are present. Similar appearance of subcutaneous fat necrosis in the left gluteal region. Bones: Left ischial osteomyelitis as above. Posterior changes of the right femur. Multilevel degenerative changes of the spine. Bones are osteopenic. IMPRESSION: 1. Significantly increased size of a large left posterior gluteal decubitus ulcer, with open wound extending to the level of the left ischial tuberosity where there is cortical destruction compatible with osteomyelitis. Adjacent inflammatory changes are present. 2. Numerous additional incidental findings as above, including indeterminate right adrenal nodule and indeterminate left renal lesion. ECG Data Attestation: I personally reviewed and interpreted this ECG as follows: Discharge Plan Discharge Clinical Impression: Osteomyelitis, Decubitus ulcer Patient Disposition: Admitted As Observation Condition: Stable
[2025-01-03 15:15] LABS: Lactate* 2.8 mmol/L (0.5-1.9)
[2025-01-03 15:17] LABS: Basophils Absolute Auto 0.01 K/uL (0.00-0.30); Basophils Percent Auto 0.1 % (0.0-3.0); Eosinophils Absolute Auto 0.16 K/uL (0.00-0.50); Eosinophils Percent Auto 1.5 % (0.0-7.0); Hematocrit 35.9 % (37.0-53.0); Hemoglobin* 10.4 gm/dL (13.5-17.5); Immature Granulocytes Abs Auto 0.04 K/uL (0.00-0.30); Immature Granulocytes Pct Auto 0.4 %; Lymphocytes Percent Auto 16.2 % (20-44); Mean Corpuscular HGB Conc 29 gm/dL (32-36); Mean Corpuscular Hemoglobin 25 pg (26-34); Mean Corpuscular Volume 85 fL (80-100); Monocytes Percent Auto 7.4 % (0.0-11.0); Neutrophils Percent Auto 74.4 % (42.0-72.0); Platelet Count* 215 K/uL (140-440); RDW Coefficient of Variation % 19.4 % (11.5-15.5); Red Blood Count 4.22 m/uL (4.30-5.90); White Blood Count* 10.79 K/uL (4.50-11.00)
[2025-01-03 15:24] LABS: Slide Review Reflex No
[2025-01-03 15:32] LABS: Calcium* 9.4 mg/dL (8.4-10.6); Glucose* 151 mg/dL (60-115)
[2025-01-03 15:49] LABS: Procalcitonin* 0.22 ng/mL (<0.50)
--- NOTE | 2025-01-03 15:55 | CRLHL7_ITS ---
For Patients: As a result of the Century Cures Act, medical imaging exams and procedure reports are released immediately into your electronic medical record. You may view this report before your referring provider. If you have questions, please contact your health care provider. INDICATION: Osteomyelitis. TECHNIQUE: CT abdomen and pelvis acquired with 116 mL Isovue 370 IV contrast. COMPARISON: CT abdomen/pelvis dated 12/12/2024. FINDINGS: Lower chest: No focal consolidation. Liver: No significant change in hypodense lesion at the right hepatic dome, with peripheral calcification. Additional subcentimeter hypodense lesion in segment 7, also unchanged. Gallbladder and bile ducts: Percutaneous cholecystostomy in place, unchanged. No significant biliary duct dilation. Pancreas: Atrophic. Spleen: Unremarkable. Adrenal glands: Stable indeterminate 1.5 cm right adrenal nodule. Kidneys: Kidneys enhance symmetrically, without hydronephrosis. Too small to characterize hypodense bilateral renal lesions. Stable indeterminate 1.3 cm exophytic lesion in the posterior left kidney (series 2, image 85). Retroperitoneum: No lymphadenopathy. Bowel and mesentery: Bowel is not obstructed. No significant ascites, no pneumoperitoneum. Normal appendix. Bladder: Decompressed in the presence of a Eason catheter. Nondependent air is present. Reproductive organs: No prostatomegaly. Pelvic lymph nodes: No lymphadenopathy. Vessels: Atherosclerotic calcifications. Abdominal wall: Large left posterior gluteal decubitus ulcer, significantly increased in size since prior study, with open wound extending to the level of the left ischial tuberosity. Cortical destruction of the left ischial tuberosity, compatible with osteomyelitis. Adjacent inflammatory changes are present. Similar appearance of subcutaneous fat necrosis in the left gluteal region. Bones: Left ischial osteomyelitis as above. Posterior changes of the right femur. Multilevel degenerative changes of the spine. Bones are osteopenic. IMPRESSION: 1. Significantly increased size of a large left posterior gluteal decubitus ulcer, with open wound extending to the level of the left ischial tuberosity where there is cortical destruction compatible with osteomyelitis. Adjacent inflammatory changes are present. 2. Numerous additional incidental findings as above, including indeterminate right adrenal nodule and indeterminate left renal lesion. Please note that all CT scans at this facility use dose modulation, iterative reconstruction, and/or weight-based dosing when appropriate to reduce radiation dose to as low as reasonably achievable. Dictated by Armida Bhatia MD @ 01/03/2025 5:32:41 PM (Electronically Signed)
[2025-01-03 15:56] LABS: C Reactive Protein* 15.3 mg/dL (0.5-1.0); Troponin I* < 0.01 ng/mL (0.01-0.04)
[2025-01-03] MEDS: 0.9 % SODIUM CHLORIDE 1000 ml 1,000 ML 500 ML IV (16:00)
[2025-01-03 16:08] LABS: Albumin* 3.4 g/dL (3.3-5.0); Chloride* 101 mmol/L (96-114); Potassium* 4.9 mmol/L (3.6-5.1); Sodium* 135 mmol/L (135-149)
[2025-01-03 16:11] LABS: Alanine Aminotransferase* 22 U/L (4-50); Alkaline Phosphatase* 94 U/L (40-150); Anion Gap 8 mEq/L (7-15); Aspartate Amino Transferase* 21 U/L (12-35); Bilirubin Direct* 0.2 mg/dL (0.0-0.5); Bilirubin Total* 0.4 mg/dL (0.1-1.5); Blood Urea Nitrogen* 49 mg/dL (7-30); Carbon Dioxide* 26 mmol/L (20-32); Creatinine* 1.2 mg/dL (0.5-1.5); Estimated Glomerular Filt Rate 63 ml/min; Total Protein* 6.7 g/dL (6.0-8.3)
[2025-01-03 16:12] LABS: Appearance Urine Clear (Clear); Bilirubin Urine Negative (Negative); Blood Urine Negative (Negative); Color Urine Yellow (Yellow); Glucose Urine Negative (Negative); Ketones Urine Negative (Negative); Leukocyte Esterase Urine Trace (Negative); Nitrite Urine Negative (Negative); Protein Urine Negative (Negative); Specific Gravity Urine <= 1.005 (1.000-1.030); Urobilinogen Urine 0.2 (0.2-1.0)
[2025-01-03 16:18] LABS: Bacteria Urine Few; RBC Urine 0-2 (0-2); Squamous Epithelial Cell Urine Few (None-Few)
[2025-01-03] MEDS: PIPERACILLIN/TAZOBACTAM 3.375 GM in 0.9 % SODIUM CHLORIDE Mini-bag 100 ML IVPB (18:16)
--- NOTE | 2025-01-03 19:39 | PM.IMHP1 ---
Assessment and Plan Assessment and plan (1) Osteomyelitis: Problem comment: - 01/03/25 CT abd/pelvis: Significantly increased size of a large left posterior gluteal decubitus ulcer, with open wound extending to the level of the left ischial tuberosity where there is cortical destruction compatible with osteomyelitis. Adjacent inflammatory changes are present. - Admit to hospital. Surgical consultation requested, Dr. Randall will see tomorrow AM. NPO after MN in case she warrants OR debridement. BC obtained. Empiric pip/tazo and daptomycin (allergy to vancomycin). Off-loading efforts. Will need on-going wound care support. Consider hyperbaric oxygen therapy. Status: Acute (2) Stage IV pressure ulcer of left buttock: Problem comment: -see osteomyelitis notes Status: Acute (3) Paraplegia: Problem comment: -due to MS Status: Acute (4) Multiple sclerosis: Problem comment: Bed-bound Status: Acute (5) Neurogenic bladder: Problem comment: - indwelling urinary catheter - exchanged 12/12/24 Ongoing urinary infection of uncertain clinical significance, recently with ESBL Klebsiella pneumonia Status: Chronic (6) Eason catheter in place: Problem comment: - chronic, replaced in the ED 12/12 Status: Chronic (7) Neurogenic bowel: Problem comment: Continue laxatives. Monitor Status: Acute (8) H/O insertion of cholecystostomy tube: Problem comment: - July 2024 at [facility]. - stable/decompressed gallbladder on CT at admission - unclear plan about cholecystectomy verses long-term use of cholecystostomy tube Catheter exchange every 3 months due in January 2025 at [facility] Status: Chronic (9) Normocytic anemia: Problem comment: - baseline Hgb 9.5-11, normocytic, outpatient f/u. Monitor for acute blood loss requiring urgent evaluation November 18, 2024 had iron of 45, TIBC 195 which are both mildly low. TSAT 23%, low normal. B12 and folate normal. On this admission had high normal ferritin level of 411. Clinically I think the iron studies are not very helpful in determining his iron status. For now will continue daily iron replacement. Status: Acute (10) Diabetes mellitus: Problem comment: Hemoglobin A1c was 7.6 on 11/16/2024. On metformin. SSI ACHS. Status: Acute (11) Lymphedema: Problem comment: Chronic, recommended treatment: compression wraps. Status: Acute (12) Pulmonary embolism: Problem comment: Chronic PE noted on CT chest from 08/08/2024 and November 14 2024 at [place]. Apixaban held because of surgical debridement. Status: Acute Plan 1. Reviewed impression and recommendations with patient 2. Answered patient's questions to satisfaction 3. Patient agreeable with above stated plans and recommendations Total Time Spent Total Time Spent: 70 minutes Hospitalist- H&P: HPI History of Present Illness Date Seen: 01/03/25 Chief complaint: AMS with chronic decubitus wound Narrative: Ren Ramirez is a 75 year old man sent to the emergency department due to altered mental status noon and malodorous wound of chronic decubitus ulcer. Reportedly was calling his family via telephone this morning around 3:00 a.m. telling them he did not know where he was or why he was in the [facility] nursing [facility]. When nurse practitioner assessed him today noticed increased size of decubitus ulcer and malodorous smell they sent the patient to the emergency department for further assessment. Patient has paraplegia and is for the most part bed-bound due to advanced multiple sclerosis. Has had chronic decubitus ulcer with minimal improvement despite efforts including wound care and offloading. No recent fevers, rigors, diaphoresis. No complaint of pain. Review of Systems Status of ROS: Reports: 6 or more systems reviewed and unremarkable except as noted in History and below Medical Decision Making Medical Decision Making Code Status: Full resuscitation status in the event of cardiopulmonary demise. Has patient completed a Health Care Directive: Yes During This Stay, Who Would You Like To Make Decisions For You In The Event You Are Unable To Make Them For Yourself?: He names his 3 children, Lora, Sabino, and Homero. [facility] Medical History Pulmonary embolism ?I26.99 - Other pulmonary embolism without acute cor pulmonale (ICD-10) Paraplegia ?G82.20 - Paraplegia, unspecified (ICD-10) Lymphedema ?I89.0 - Lymphedema, not elsewhere classified (ICD-10) Diabetes mellitus ?E11.9 - Type 2 diabetes mellitus without complications (ICD-10) Stage III pressure ulcer of sacral region ?L89.153 - Pressure ulcer of sacral region, stage 3 (ICD-10) Stage III pressure ulcer of buttock ?L89.303 - Pressure ulcer of unspecified buttock, stage 3 (ICD-10) Pressure ulcer of coccygeal region, stage 1 ?L89.151 - Pressure ulcer of sacral region, stage 1 (ICD-10) Neurogenic bowel ?K59.2 - Neurogenic bowel, not elsewhere classified (ICD-10) Hyperuricemia ?E79.0 - Hyperuricemia without signs of inflammatory arthritis and tophaceous disease (ICD-10) Hyperlipidemia ?E78.5 - Hyperlipidemia, unspecified (ICD-10) Hypertension ?I10 - Essential (primary) hypertension (ICD-10) Coronary artery disease ?I25.10 - Atherosclerotic heart disease of [place] coronary artery without angina pectoris (ICD-10) Fracture, intertrochanteric, right femur ?S72.141A - Displaced intertrochanteric fracture of right femur, initial encounter for closed fracture (ICD-10) Sleep apnea ?G47.30 - Sleep apnea, unspecified (ICD-10) Eason catheter in place ?Z97.8 - Presence of other specified devices (ICD-10) Neurogenic bladder ?N31.9 - Neuromuscular dysfunction of bladder, unspecified (ICD-10) Obesity ?E66.9 - Obesity, unspecified (ICD-10) Multiple sclerosis ?G35 - Multiple sclerosis (ICD-10) Surgical History H/O insertion of cholecystostomy tube ?Z98.890 - Other specified postprocedural states (ICD-10) Family History Father Coronary artery disease High blood pressure High cholesterol Sleep apnea Social History Narrative: Resident of [facility]. Daughter Malika is healthcare power of sports attorney. Code status is DNR. Remote history of smoking What is your current living situation?: I presently have a place to live Problems where you live: no known problems Problems where you live details: NA In the past 12 months, utilities in danger of being shut off: no In past 12 months, lack of transportation kept you from medical appts, meetings, work, or getting things needed for daily living: no In the past 12 mos, have been you worried that your food would run out before you had money to buy more?: never true In the past 12 mos, the food you bought just didn't last and you didn't have money to buy more?: never true Highest level of school completed/degree received: 12th grade, no diploma Smoking Status: Former smoker What tobacco products do you use: cigarettes Smoking quit date/years: >15 years ago Do you use any of these nicotine containing products: None Second hand tobacco smoke exposure: No How often do you have a drink containing alcohol: monthly or less Alcohol type: beer Alcohol type details: on rare occasion How many standard drinks containing alcohol do you have on a typical day: 1 or 2 How often do you have six or more drinks on one occasion: Never AUDIT-C Alcohol total score: 1 Non-prescribed substance use: denies use Caffeine: Yes (tea and coffee) How often does anyone, including family, friends and others, physically hurt you: unable to answer How often does anyone, including family, friends and others, insult or talk down to you: unable to answer How often does anyone, including family, friends and others, threaten you with harm: unable to answer How often does anyone, including family, friends and others, scream or curse at you: unable to answer service: No Meds Home Medications and Allergies Home Medications ?Medication ?Instructions ?Recorded ?Confirmed ?Type acetaminophen 500 mg tablet 1,000 mg PO TID 08/07/24 12/12/24 History calcium carbonate (Zachary-Gest 400 mg PO BID 08/07/24 12/12/24 History Antacid) cholecalciferol (vitamin D3) 25 25 mcg PO DAILY 08/07/24 12/12/24 History mcg (1,000 unit) tablet (Vitamin D3) furosemide 40 mg tablet 40 mg PO DAILY 08/07/24 12/12/24 History lisinopril 40 mg tablet 40 mg PO DAILY 08/07/24 12/12/24 History metoprolol succinate 100 mg 100 mg PO DAILY 08/07/24 12/12/24 History tablet,extended release 24 hr pantoprazole 40 mg tablet,delayed 40 mg PO BID 08/07/24 12/12/24 History release polyethylene glycol 3350 17 17 g PO DAILY 08/07/24 12/12/24 History gram/dose oral powder potassium chloride 10 mEq 10 meq PO BIDWM 08/07/24 12/12/24 History capsule,extended release apixaban 5 mg tablet (Eliquis) 5 mg PO BID 11/16/24 12/12/24 History atorvastatin 80 mg tablet 80 mg PO HS 11/16/24 12/12/24 History bacitracin 500 unit/gram topical 1 applic topical BID 11/16/24 12/12/24 History ointment baclofen 10 mg tablet 10 mg PO BID 11/16/24 12/12/24 History bisacodyl 10 mg rectal suppository 10 mg MI DAILY PRN 11/16/24 12/12/24 History diclofenac sodium 1 % topical gel 2 g topical BID PRN 11/16/24 12/12/24 History furosemide 20 mg tablet 20 mg PO QPM 11/16/24 12/12/24 History latanoprost 0.005 % eye drops 1 drp ophthalmic (eye) HS 11/16/24 12/12/24 History ondansetron HCl 4 mg tablet 4 mg PO Q6H PRN 11/16/24 12/12/24 History sennosides 8.6 mg-docusate sodium 2 tab-cap PO DAILY 11/16/24 12/12/24 History 50 mg tablet (Senna Plus) carbamide peroxide 6.5 % ear drops 5 drp otic (ear) Q7D 11/17/24 12/12/24 History (Ear Wax Removal Kit) allopurinol 100 mg tablet 100 mg PO DAILY #30 tabs 11/19/24 12/12/24 Rx clotrimazole 1 % topical cream 1 applic topical BID 12/12/24 12/12/24 History amoxicillin 250 mg capsule 500 mg (2 x 250 mg) PO TID #21 caps 12/16/24 Rx ferrous sulfate 325 mg (65 mg 325 mg PO DAILY #30 tabs 12/16/24 12/12/24 Rx iron) tablet metformin 500 mg tablet,extended 1,000 mg (2 x 500 mg) PO DAILY #60 12/16/24 Rx release 24 hr tabs sulfamethoxazole 800 1 tab PO BID #14 tabs 12/16/24 Rx mg-trimethoprim 160 mg tablet Allergies Allergy/AdvReac Type Severity Reaction Status Date / Time Haemophilus B polysaccharide Allergy Unknown Verified 01/03/25 14:25 conj w vancomycin Allergy Unknown Verified 01/03/25 16:25 Exam Narrative: Exam Narrative: Examine him in the emergency department. He appears anxious and scared but is nonetheless cooperative and friendly. Seemingly speaks cohesive Xiao. On the other hand it is apparent he does not know everything he is talking about including he describes how he has a tube in his chest because of blood clots in his lungs, when in fact he has a cholecystostomy tube in place. Alert and oriented to self, place, not necessarily to time or situation. Vision and hearing are adequate. Midline nasal septum. Dentition in fair repair. No icterus or jaundice. Midline trachea. No head neck no lymphadenopathy. Neck is supple. Lungs are clear to auscultation. Heart tones with regular rhythm. Abdomen is obese with active bowel sounds, soft, nontender. I do not re-examine the wound. Was examined in the emergency department and stated to have foul odor with necrotic tissue. Cholecystostomy tube in place and draining. Suprapubic catheter in place and draining. Const: Vital Signs, click to edit/add: Vital Signs - 24 hr 01/03/25 14:21 01/03/25 14:31 01/03/25 14:42 Temperature 96.6 F L Pulse Rate 75 76 Pulse Rate [Left P ulse Oximeter] 75 Respiratory Rate 18 Blood Pressure 112/48 L Blood Pressure [Le ft Upper Arm] 137/57 L Pulse Oximetry 97 97 97 Oxygen Delivery Me thod Room Air 01/03/25 14:45 01/03/25 14:47 01/03/25 15:02 Temperature Pulse Rate 74 73 Pulse Rate [Left P ulse Oximeter] Respiratory Rate Blood Pressure 107/44 L 108/44 L Blood Pressure [Le ft Upper Arm] Pulse Oximetry 97 97 Oxygen Delivery Me thod 01/03/25 15:11 01/03/25 15:15 01/03/25 15:17 Temperature Pulse Rate 76 74 73 Pulse Rate [Left P ulse Oximeter] Respiratory Rate Blood Pressure 99/45 L Blood Pressure [Le ft Upper Arm] Pulse Oximetry 97 97 97 Oxygen Delivery Me thod 01/03/25 15:18 01/03/25 15:30 01/03/25 15:32 Temperature Pulse Rate 73 71 69 Pulse Rate [Left P ulse Oximeter] Respiratory Rate Blood Pressure 98/48 L Blood Pressure [Le ft Upper Arm] Pulse Oximetry 97 99 97 Oxygen Delivery Me thod 01/03/25 15:45 01/03/25 15:48 01/03/25 16:00 Temperature Pulse Rate 70 72 76 Pulse Rate [Left P ulse Oximeter] Respiratory Rate Blood Pressure 120/54 L Blood Pressure [Le ft Upper Arm] Pulse Oximetry 97 97 96 Oxygen Delivery Me thod 01/03/25 16:02 01/03/25 16:03 01/03/25 16:15 Temperature Pulse Rate 73 77 72 Pulse Rate [Left P ulse Oximeter] Respiratory Rate Blood Pressure 118/49 L Blood Pressure [Le ft Upper Arm] Pulse Oximetry 96 97 97 Oxygen Delivery Me thod 01/03/25 16:17 01/03/25 16:36 01/03/25 16:45 Temperature Pulse Rate 81 81 Pulse Rate [Left P ulse Oximeter] Respiratory Rate Blood Pressure 119/56 L Blood Pressure [Le ft Upper Arm] Pulse Oximetry 97 96 Oxygen Delivery Me thod 01/03/25 16:47 01/03/25 17:00 01/03/25 17:02 Temperature Pulse Rate 81 78 81 Pulse Rate [Left P ulse Oximeter] Respiratory Rate Blood Pressure 131/60 141/56 H Blood Pressure [Le ft Upper Arm] Pulse Oximetry 97 96 97 Oxygen Delivery Me thod 01/03/25 17:15 01/03/25 17:17 01/03/25 17:30 Temperature Pulse Rate 80 79 80 Pulse Rate [Left P ulse Oximeter] Respiratory Rate Blood Pressure 129/53 L Blood Pressure [Le ft Upper Arm] Pulse Oximetry 98 99 95 Oxygen Delivery Me thod 01/03/25 17:32 01/03/25 17:33 01/03/25 17:45 Temperature Pulse Rate 79 79 78 Pulse Rate [Left P ulse Oximeter] Respiratory Rate Blood Pressure 136/56 L Blood Pressure [Le ft Upper Arm] Pulse Oximetry 87 L 96 Oxygen Delivery Me thod 01/03/25 17:47 01/03/25 18:00 01/03/25 18:01 Temperature Pulse Rate 80 79 81 Pulse Rate [Left P ulse Oximeter] Respiratory Rate Blood Pressure 124/48 L 128/60 Blood Pressure [Le ft Upper Arm] Pulse Oximetry 97 98 98 Oxygen Delivery Me thod 01/03/25 18:17 01/03/25 18:19 Temperature Pulse Rate 82 Pulse Rate [Left P ulse Oximeter] Respiratory Rate Blood Pressure 126/65 Blood Pressure [Le ft Upper Arm] Pulse Oximetry 92 Oxygen Delivery [facility] Hospitalist - H&P: Result Labs Labs: Short CBC 01/03/25 Range/Units 15:10 WBC 10.79 (4.50-11.00) K/uL Hgb 10.4 L (13.5-17.5) gm/dL Hct 35.9 L (37.0-53.0) % Plt Count 215 (140-440) K/uL BMP 01/03/25 15:10 Sodium 135 Potassium 4.9 Chloride 101 Carbon Dioxide 26 BUN 49 H Creatinine 1.2 Glucose 151 H Calcium 9.4 Cardiac Enzymes 01/03/25 Range/Units 15:10 Troponin I < 0.01 (0.01-0.04) ng/mL Liver Function 01/03/25 Range/Units 15:10 Total Bilirubin 0.4 (0.1-1.5) mg/dL Direct Bilirubin 0.2 (0.0-0.5) mg/dL AST 21 (12-35) U/L ALT 22 (4-50) U/L Alkaline Phosphatase 94 (40-150) U/L Albumin 3.4 (3.3-5.0) g/dL Urine 01/03/25 Range/Units 16:00 Urine Color Yellow (Yellow) Urine Appearance Clear (Clear) Urine pH 5.0 (5.0-8.5) Ur Specific [place] <= 1.005 (1.000-1.030) Urine Protein Negative (Negative) Urine Glucose (UA) Negative (Negative) Imaging CT scan abdomen and pelvis: Attestation: I have reviewed the pertinent imaging results. Radiologist's impression: FINDINGS: Lower chest: No focal consolidation. Liver: No significant change in hypodense lesion at the right hepatic dome, with peripheral calcification. Additional subcentimeter hypodense lesion in segment 7, also unchanged. Gallbladder and bile ducts: Percutaneous cholecystostomy in place, unchanged. No significant biliary duct dilation. Pancreas: Atrophic. Spleen: Unremarkable. Adrenal glands: Stable indeterminate 1.5 cm right adrenal nodule. Kidneys: Kidneys enhance symmetrically, without hydronephrosis. Too small to characterize hypodense bilateral renal lesions. Stable indeterminate 1.3 cm exophytic lesion in the posterior left kidney (series 2, image 85). Retroperitoneum: No lymphadenopathy. Bowel and mesentery: Bowel is not obstructed. No significant ascites, no pneumoperitoneum. Normal appendix. Bladder: Decompressed in the presence of a Eason catheter. Nondependent air is present. Reproductive organs: No prostatomegaly. Pelvic lymph nodes: No lymphadenopathy. Vessels: Atherosclerotic calcifications. Abdominal wall: Large left posterior gluteal decubitus ulcer, significantly increased in size since prior study, with open wound extending to the level of the left ischial tuberosity. Cortical destruction of the left ischial tuberosity, compatible with osteomyelitis. Adjacent inflammatory changes are present. Similar appearance of subcutaneous fat necrosis in the left gluteal region. Bones: Left ischial osteomyelitis as above. Posterior changes of the right femur. Multilevel degenerative changes of the spine. Bones are osteopenic. IMPRESSION: 1. Significantly increased size of a large left posterior gluteal decubitus ulcer, with open wound extending to the level of the left ischial tuberosity where there is cortical destruction compatible with osteomyelitis. Adjacent inflammatory changes are present. 2. Numerous additional incidental findings as above, including indeterminate right adrenal nodule and indeterminate left renal lesion.
[2025-01-03] MEDS: BACITRACIN OINTMENT BULK TUBE 1 APPLIC TOPICAL (21:29)
[2025-01-03] MEDS: BACLOFEN 10 MG TABLET PO (21:29)
[2025-01-03] MEDS: 0.9 % SODIUM CHLORIDE 250 ml IV (21:31)
[2025-01-03] MEDS: SODIUM CHLORIDE 0.9 % (FLUSH) 10 ML SYRINGE 5 ML IVF (21:32)
[2025-01-03] MEDS: ACETAMINOPHEN 500 MG TABLET 1000 MG PO (22:12)
[2025-01-03] MEDS: DAPTOmycin 50 MG/ML inj 800 MG IVP (22:51)
[2025-01-04] VITALS (8 sets, daily range): BP systolic 101–124; BP diastolic 44–97; PULSE 70–96; RESP 16–20; TEMP 36.4–36.8; O2SAT 92–99
[2025-01-04] MEDS: PIPERACILLIN/TAZOBACTAM 3.375 GM in 0.9 % SODIUM CHLORIDE Mini-bag 100 ML IVPB ×2 (00:13→06:13)
[2025-01-04] MEDS: ONDANSETRON 2 MG/ML inj 4 MG IVP (01:27)
[2025-01-04] MEDS: SODIUM CHLORIDE 0.9 % (FLUSH) 10 ML SYRINGE 5 ML IVF ×3 (01:28→22:01)
[2025-01-04 06:37] LABS: Lactate* 2.6 mmol/L (0.5-1.9)
[2025-01-04 06:48] LABS: Hematocrit 34.7 % (37.0-53.0); Hemoglobin* 10.2 gm/dL (13.5-17.5); Mean Corpuscular HGB Conc 29 gm/dL (32-36); Mean Corpuscular Hemoglobin 25 pg (26-34); Mean Corpuscular Volume 84 fL (80-100); Platelet Count* 306 K/uL (140-440); Red Blood Count 4.11 m/uL (4.30-5.90); White Blood Count* 19.45 K/uL (4.50-11.00)
[2025-01-04 06:57] LABS: Chloride* 103 mmol/L (96-114); Potassium* 5.6 mmol/L (3.6-5.1); Sodium* 135 mmol/L (135-149)
[2025-01-04 07:00] LABS: Blood Urea Nitrogen* 52 mg/dL (7-30); Creatinine* 1.6 mg/dL (0.5-1.5); Est. Creatinine Clearance* 43.78; Estimated Glomerular Filt Rate 45 ml/min
[2025-01-04 07:01] LABS: Anion Gap 11 mEq/L (7-15); Calcium* 8.9 mg/dL (8.4-10.6); Carbon Dioxide* 21 mmol/L (20-32); Glucose* 205 mg/dL (60-115); Magnesium* 1.7 mg/dL (1.5-2.6); Phosphorus* 3.4 mg/dL (2.5-4.5)
[2025-01-04 07:04] LABS: Slide Review Reflex No
--- NOTE | 2025-01-04 07:23 | PC.NURSE ---
End of shift report [id number]: VSS. Afebrile. Denies pain. At the beginning of the shift pt was reluctant to allow documentation writer to assess wounds, after education pt allowed documentation writer to assess wounds. Pt had a small episode of emesis after med administration, zofran given with relief. Dressing change completed?and repacked on pts left buttock, mepilex is C/D/I. Pt hoskins is intact and patent. Pt cholecystostomy tube is intact and patent. Pt is tolerating Q2H repositions. Pt was NPO since midnight. Bed alarm on, call light within reach.?
--- NOTE | 2025-01-04 07:40 | PM.IMPN1 ---
Assessment and Plan Assessment and plan (1) Sepsis: Problem comment: -HR 96-104. afebrile. Lactate still >2. WBC up to 19.45. BC NTD. UC NTD. CRP uptrending. BP low normal. giving fluid bolus and trending labs. -on broad spectrum abx (dapto and zosyn) upon admission. Given BISHOP and hx of ESBL - will switch to meropenem monotherapy. -BISHOP noted today, Creat up to 1.6 (further increase to 2.0) with GFR down from 90's to 30's -bolus ordered and ongoing IVF ordered. -holding antihypertensive's and metformin. Status: Acute (2) Stage IV pressure ulcer of left buttock: Problem comment: -see osteomyelitis notes Status: Acute (3) Osteomyelitis: Problem comment: - 01/03/25 CT abd/pelvis: Significantly increased size of a large left posterior gluteal decubitus ulcer, with open wound extending to the level of the left ischial tuberosity where there is cortical destruction compatible with osteomyelitis. Adjacent inflammatory changes are present. - Admit to hospital. Surgical consultation requested, Dr. Randall will see tomorrow AM. NPO after MN in case she warrants OR debridement. BC obtained. Empiric pip/tazo and daptomycin (allergy to vancomycin). Off-loading efforts. Will need on-going wound care support. Consider hyperbaric oxygen therapy. -01/04 - switched to meropenem, renally dosed, monotherapy. Gen surg is planning debridement on 01/05. added air mattress. giving IVF support. Status: Acute (4) Leukocytosis: Problem comment: -WBC up to 19.45. BC NTD. UC NTD. Status: Acute (5) BISHOP (acute kidney injury): Problem comment: -BISHOP noted today, Creat up to 1.6 with GFR down from 90's to 40's. -bolus ordered and ongoing IVF ordered. Status: Acute (6) Multiple sclerosis: Problem comment: Bed-bound Status: Acute (7) Paraplegia: Problem comment: -due to MS Status: Acute (8) Diabetes mellitus: Problem comment: Hemoglobin A1c was 7.6 on 11/16/2024. On metformin (on hold). SSI ACHS. Status: Acute (9) Hoskins catheter in place: Problem comment: - chronic, replaced in the ED 12/12 Status: Chronic Subjective Date Seen: 01/04/25 Interval history: Daily Progress Note - Hospital #: 2 CC: weakness, AMS, foul smelling wounds 24 HOUR UPDATE: End of shift report [id number]: VSS. Afebrile. Denies pain. At the beginning of the shift pt was reluctant to allow process description writer to assess wounds, after education pt allowed process description writer to assess wounds. Pt had a small episode of emesis after med administration, zofran given with relief. Dressing change completed?and repacked on pts left buttock, mepilex is C/D/I. Pt hoskins is intact and patent. Pt cholecystostomy tube is intact and patent. Pt is tolerating Q2H repositions. Pt was NPO since midnight. Bed alarm on, call light within reach.? Notable Labs, Micro, Rads, Interventions: Blood pressure 111/50, 123/64. Afebrile. Pulse 86-104. Sinus. Respiratory rate 16. Pulse ox 95%. Room air. Weight 108 kilos. White blood cell count has dramatically increased from 10.8 on upon admission to 19.45. No differential. However yesterday it was predominantly neutrophils at 74.4% Hemoglobin is stable Platelets are normal. Electrolytes note a jump in his potassium from 4.9-5.6 His creatinine has jumped from 1.2-1.6, BUN went from 49-52 His lactate is only slightly decreased from 2.8-2.6 CRP is up trending. I reviewed the CT from admission, abdomen pelvis 1. Significantly increased size of a large left posterior gluteal decubitus ulcer, with open wound extending to the level of the left ischial tuberosity where there is cortical destruction compatible with osteomyelitis. Adjacent inflammatory changes are present. 2. Numerous additional incidental findings as above, including indeterminate right adrenal nodule and indeterminate left renal lesion. Objective: groggy; slow to respond but appropriate. Vitals: see above Lungs: Clear. Cardiac: S1S2. Neuro: paraplegic and nearly insensate to lower extremities. Addressed his left buttock wounds with general surgery. large left open wound 7x7cm and 8-10cm deep; bone exposed 2nd wound proximal left buttock 3x4cm indurated/fluctuance noted deep to open wound Disposition/Potential discharge - Today I spent 50minutes seeing the patient, reviewing Expanse and EPIC notes/diagnostics, discussing the care plan with our care time that includes social work, PT/OT, pharmacy, RT, jail and documenting my impressions and plan in the medical record. Exam Const: Vital Signs, click to edit/add: Vital Signs - 24 hr 01/03/25 14:21 01/03/25 14:31 01/03/25 14:42 Temperature 96.6 F L Pulse Rate 75 76 Pulse Rate [Left P ulse Oximeter] 75 Respiratory Rate 18 Blood Pressure 112/48 L Blood Pressure [Le ft Upper Arm] 137/57 L Blood Pressure [Ri ght Arm] Pulse Oximetry 97 97 97 Oxygen Delivery Me thod Room Air 01/03/25 14:45 01/03/25 14:47 01/03/25 15:02 Temperature Pulse Rate 74 73 Pulse Rate [Left P ulse Oximeter] Respiratory Rate Blood Pressure 107/44 L 108/44 L Blood Pressure [Le ft Upper Arm] Blood Pressure [Ri ght Arm] Pulse Oximetry 97 97 Oxygen Delivery Me thod 01/03/25 15:11 01/03/25 15:15 01/03/25 15:17 Temperature Pulse Rate 76 74 73 Pulse Rate [Left P ulse Oximeter] Respiratory Rate Blood Pressure 99/45 L Blood Pressure [Le ft Upper Arm] Blood Pressure [Ri ght Arm] Pulse Oximetry 97 97 97 Oxygen Delivery Me thod 01/03/25 15:18 01/03/25 15:30 01/03/25 15:32 Temperature Pulse Rate 73 71 69 Pulse Rate [Left P ulse Oximeter] Respiratory Rate Blood Pressure 98/48 L Blood Pressure [Le ft Upper Arm] Blood Pressure [Ri ght Arm] Pulse Oximetry 97 99 97 Oxygen Delivery Me thod 01/03/25 15:45 01/03/25 15:48 01/03/25 16:00 Temperature Pulse Rate 70 72 76 Pulse Rate [Left P ulse Oximeter] Respiratory Rate Blood Pressure 120/54 L Blood Pressure [Le ft Upper Arm] Blood Pressure [Ri ght Arm] Pulse Oximetry 97 97 96 Oxygen Delivery Me thod 01/03/25 16:02 01/03/25 16:03 01/03/25 16:15 Temperature Pulse Rate 73 77 72 Pulse Rate [Left P ulse Oximeter] Respiratory Rate Blood Pressure 118/49 L Blood Pressure [Le ft Upper Arm] Blood Pressure [Ri ght Arm] Pulse Oximetry 96 97 97 Oxygen Delivery Me thod 01/03/25 16:17 01/03/25 16:36 01/03/25 16:45 Temperature Pulse Rate 81 81 Pulse Rate [Left P ulse Oximeter] Respiratory Rate Blood Pressure 119/56 L Blood Pressure [Le ft Upper Arm] Blood Pressure [Ri ght Arm] Pulse Oximetry 97 96 Oxygen Delivery Me thod 01/03/25 16:47 01/03/25 17:00 01/03/25 17:02 Temperature Pulse Rate 81 78 81 Pulse Rate [Left P ulse Oximeter] Respiratory Rate Blood Pressure 131/60 141/56 H Blood Pressure [Le ft Upper Arm] Blood Pressure [Ri ght Arm] Pulse Oximetry 97 96 97 Oxygen Delivery Me thod 01/03/25 17:15 01/03/25 17:17 01/03/25 17:30 Temperature Pulse Rate 80 79 80 Pulse Rate [Left P ulse Oximeter] Respiratory Rate Blood Pressure 129/53 L Blood Pressure [Le ft Upper Arm] Blood Pressure [Ri ght Arm] Pulse Oximetry 98 99 95 Oxygen Delivery Me thod 01/03/25 17:32 01/03/25 17:33 01/03/25 17:45 Temperature Pulse Rate 79 79 78 Pulse Rate [Left P ulse Oximeter] Respiratory Rate Blood Pressure 136/56 L Blood Pressure [Le ft Upper Arm] Blood Pressure [Ri ght Arm] Pulse Oximetry 87 L 96 Oxygen Delivery Me thod 01/03/25 17:47 01/03/25 18:00 01/03/25 18:01 Temperature Pulse Rate 80 79 81 Pulse Rate [Left P ulse Oximeter] Respiratory Rate Blood Pressure 124/48 L 128/60 Blood Pressure [Le ft Upper Arm] Blood Pressure [Ri ght Arm] Pulse Oximetry 97 98 98 Oxygen Delivery Me thod 01/03/25 18:17 01/03/25 18:19 01/03/25 19:29 Temperature 98.3 F Pulse Rate 82 Pulse Rate [Left P ulse Oximeter] 86 Respiratory Rate 18 Blood Pressure 126/65 Blood Pressure [Le ft Upper Arm] Blood Pressure [Ri ght Arm] 122/84 Pulse Oximetry 92 95 Oxygen Delivery Me thod Room Air 01/03/25 19:29 01/03/25 23:00 01/03/25 23:00 Temperature 98.2 F Pulse Rate Pulse Rate [Left P ulse Oximeter] 104 H Respiratory Rate 18 16 16 Blood Pressure Blood Pressure [Le ft Upper Arm] Blood Pressure [Ri ght Arm] 123/64 Pulse Oximetry 95 98 Oxygen Delivery Me thod Room Air Room Air 01/03/25 23:00 01/04/25 03:00 Temperature 97.8 F Pulse Rate Pulse Rate [Left P ulse Oximeter] 96 Respiratory Rate 16 16 Blood Pressure Blood Pressure [Le ft Upper Arm] Blood Pressure [Ri ght Arm] 111/50 L Pulse Oximetry 98 95 Oxygen Delivery Me thod Room Air Room Air Labs Labs: Laboratory Results - last 24 hr 01/03/25 01/03/25 01/04/25 15:10 16:00 06:05 WBC 10.79 19.45 H RBC 4.22 L 4.11 L Hgb 10.4 L 10.2 L Hct 35.9 L 34.7 L MCV 85 84 MCH 25 L 25 L MCHC 29 L 29 L RDW Coeff of [place] 19.4 H Plt Count 215 306 Neut % (Auto) 74.4 H Lymph % (Auto) 16.2 L [place] % (Auto) 7.4 Eos % (Auto) 1.5 Baso % (Auto) 0.1 Neut # (Auto) 8.00 H Lymph # (Auto) 1.70 [place] # (Auto) 0.80 Eos # (Auto) 0.16 Baso # (Auto) 0.01 Abs Immat Gran (auto) 0.04 Imm/Tot Granulo (auto) 0.4 Sodium 135 135 Potassium 4.9 5.6 H Chloride 101 103 Carbon Dioxide 26 21 Anion Gap 8 11 BUN 49 H 52 H Creatinine 1.2 1.6 H Estimated Creat Clear 43.78 Estimated GFR 63 45 Glucose 151 H 205 H Lactate 2.8 H 2.6 H Calcium 9.4 8.9 Phosphorus 3.4 Magnesium 1.7 Total Bilirubin 0.4 Direct Bilirubin 0.2 AST 21 ALT 22 Alkaline Phosphatase 94 Troponin I < 0.01 C-Reactive Protein 15.3 H 16.0 H Total Protein 6.7 Albumin 3.4 Procalcitonin 0.22 Urine Color Yellow Urine Appearance Clear Urine pH 5.0 Ur Specific [place] <= 1.005 Urine Protein Negative Urine Glucose (UA) Negative Urine Ketones Negative Urine Blood Negative Urine Nitrite Negative Urine Bilirubin Negative Urine Urobilinogen 0.2 Ur Leukocyte Esterase Trace A Urine RBC 0-2 Urine WBC 2-5 Ur Squamous Epith Cells Few Urine Bacteria Few A
[2025-01-04 08:04] LABS: Albumin* 3.4 g/dL (3.3-5.0)
[2025-01-04 08:07] LABS: Alanine Aminotransferase* 23 U/L (4-50); Alkaline Phosphatase* 95 U/L (40-150); Aspartate Amino Transferase* 24 U/L (12-35); Bilirubin Direct* 0.4 mg/dL (0.0-0.5); Bilirubin Total* 0.6 mg/dL (0.1-1.5); Total Protein* 6.6 g/dL (6.0-8.3)
[2025-01-04] MEDS: 0.9 % SODIUM CHLORIDE 500 ML 500 ML IV (08:10)
[2025-01-04 08:24] LABS: Procalcitonin* 2.06 ng/mL (<0.50)
--- NOTE | 2025-01-04 08:33 | P.GSCN_ITS ---
History of Present Illness Consult details Date Seen: 01/04/25 Consult date: 01/04/25 Narrative: 75-year-old paraplegic male on Eliquis was admitted to the hospital with increased smell and concern of his left decubitus ulcer. Patient has a chronic stage IV left decubitus ulcer. He underwent excisional debridement of this ulcer on 12/13/2024. His wounds have been cared for in wound clinic. [facility] staff was concerned with increased drainage and foul smell from his wound and patient was brought to the emergency room. Patient was also thought to be not himself which usually happens when his wounds are making him sick. I reviewed patient's workup. Patient was found to have WBC of 10 yesterday but it went up to 19 today. His hemoglobin is 10.2. His creatinine was elevated at 1.6. His lactate was 2.6. An abdominal and pelvic CT was obtained that showed a large left gluteal decubitus ulcer extending to the ischial tuberosity with inflammation of the bone consistent with osteomyelitis. Superior to his large open wound patient also has area of inflammation concerning for fat necrosis. There is no obvious rim enhancing fluid collection. Review of Systems Narrative: General: no fevers HENT: no problems swallowing CV: no shortness of breath Resp: no cough GI: No nausea, vomiting, abdominal pain : no dysuria, no increased urinary frequency, no hematuria Skin: no new rashes Musculoskeletal: no back pain Neuro: no muscle weakness Psyche: no depression, no anxiety PFSH PFSH Medical History Chronic anticoagulation ?Z79.01 - long-term (current) use of anticoagulants (ICD-10) History of pulmonary embolism ?Z86.711 - Personal history of pulmonary embolism (ICD-10) Paraplegia ?G82.20 - Paraplegia, unspecified (ICD-10) Lymphedema ?I89.0 - Lymphedema, not elsewhere classified (ICD-10) Diabetes mellitus ?E11.9 - Type 2 diabetes mellitus without complications (ICD-10) Stage III pressure ulcer of sacral region ?L89.153 - Pressure ulcer of sacral region, stage 3 (ICD-10) Stage III pressure ulcer of buttock ?L89.303 - Pressure ulcer of unspecified buttock, stage 3 (ICD-10) Pressure ulcer of coccygeal region, stage 1 ?L89.151 - Pressure ulcer of sacral region, stage 1 (ICD-10) Neurogenic bowel ?K59.2 - Neurogenic bowel, not elsewhere classified (ICD-10) Hyperuricemia ?E79.0 - Hyperuricemia without signs of inflammatory arthritis and tophaceous disease (ICD-10) Hyperlipidemia ?E78.5 - Hyperlipidemia, unspecified (ICD-10) Hypertension ?I10 - Essential (primary) hypertension (ICD-10) Coronary artery disease ?I25.10 - Atherosclerotic heart disease of [place] coronary artery without angina pectoris (ICD-10) Fracture, intertrochanteric, right femur ?S72.141A - Displaced intertrochanteric fracture of right femur, initial encounter for closed fracture (ICD-10) Sleep apnea ?G47.30 - Sleep apnea, unspecified (ICD-10) Eason catheter in place ?Z97.8 - Presence of other specified devices (ICD-10) Neurogenic bladder ?N31.9 - Neuromuscular dysfunction of bladder, unspecified (ICD-10) Obesity ?E66.9 - Obesity, unspecified (ICD-10) Multiple sclerosis ?G35 - Multiple sclerosis (ICD-10) Surgical History H/O insertion of cholecystostomy tube ?Z98.890 - Other specified postprocedural states (ICD-10) Family History Father Coronary artery disease High blood pressure High cholesterol Sleep apnea Social History Narrative: Resident of [facility]. Daughter Malika is healthcare power of senior trial attorney. Code status is DNR. Remote history of smoking What is your current living situation?: I presently have a place to live Problems where you live: no known problems Problems where you live details: NA In the past 12 months, utilities in danger of being shut off: no In past 12 months, lack of transportation kept you from medical appts, meetings, work, or getting things needed for daily living: no In the past 12 mos, have been you worried that your food would run out before you had money to buy more?: never true In the past 12 mos, the food you bought just didn't last and you didn't have money to buy more?: never true Highest level of school completed/degree received: 12th grade, no diploma Smoking Status: Former smoker What tobacco products do you use: cigarettes Smoking quit date/years: >15 years ago Do you use any of these nicotine containing products: None Second hand tobacco smoke exposure: No How often do you have a drink containing alcohol: never How often do you have six or more drinks on one occasion: Never AUDIT-C Alcohol total score: 0 Non-prescribed substance use: denies use Caffeine: Yes (tea and coffee) How often does anyone, including family, friends and others, physically hurt you : unable to answer How often does anyone, including family, friends and others, insult or talk down to you: unable to answer How often does anyone, including family, friends and others, threaten you with harm: unable to answer How often does anyone, including family, friends and others, scream or curse at you: unable to answer service: No Meds Home Medications and Allergies Home Medications ?Medication ?Instructions ?Recorded ?Confirmed ?Type acetaminophen 500 mg tablet 1,000 mg PO TID 08/07/24 0 01/04/25 History calcium carbonate (Zachary-Gest 400 mg PO BID 08/07/24 History Antacid) cholecalciferol (vitamin D3) 25 25 mcg PO DAILY 01/04/25 History mcg (1,000 unit) tablet (Vitamin D3) furosemide 40 mg tablet 40 mg PO DAILY 08/07/2412/22 History lisinopril 40 mg tablet 40 mg PO DAILY 08/07/2412/22 History metoprolol succinate 100 mg 100 mg PO DAILY 08/07/24 0 01/04/25 History tablet,extended release 24 hr pantoprazole 40 mg tablet,delayed 40 mg PO BID 5 01/04/25 History release polyethylene glycol 3350 17 17 g PO DAILY 08/07/24 History gram/dose oral powder potassium chloride 10 mEq 10 meq PO BIDWM 08/07/24 History capsule,extended release apixaban 5 mg tablet (Eliquis) 5 mg PO BID 11/16/24 History atorvastatin 80 mg tablet 80 mg PO HS 11/16/24 5 History bacitracin 500 unit/gram topical 1 applic topical BID 11/16/24 01/04/25 History ointment baclofen 10 mg tablet 10 mg PO BID 11/16/24 History diclofenac sodium 1 % topical gel 2 g topical BID PRN 11/16/24 01/04/25 History furosemide 20 mg tablet 20 mg PO QPM 11/16/24 History latanoprost 0.005 % eye drops 1 drp ophthalmic (eye) H S 11/16/24 01/04/25 History ondansetron HCl 4 mg tablet 4 mg PO Q6H PRN 11/16/24 0 01/04/25 History sennosides 8.6 mg-docusate sodium 2 tab-cap PO DAILY 0 11/16/24 01/04/25 History 50 mg tablet (Senna Plus) carbamide peroxide 6.5 % ear drops 5 drp otic (ear) Q7 D 11/17/24 01/04/25 History (Ear Wax Removal Kit) allopurinol 100 mg tablet 100 mg PO DAILY #30 tabs 01/04/25 Rx clotrimazole 1 % topical cream 1 applic topical BID 01/04/25 History acetic acid 0.25 % irrigation See Rx Instructions .Rou te BID 01/04/25 01/04/25 History solution ferrous sulfate 325 mg (65 mg 325 mg PO Q48H 01/04/25 01/04/25 History iron) tablet metformin 500 mg tablet,extended 1,000 mg PO QPM 01/0401/04/25 History release 24 hr oxycodone 5 mg tablet 5 mg PO Q6H PRN 01/04/25 History Allergies Allergy/AdvReac Type Severity Reaction Status Date / Time Haemophilus B polysaccharide Allergy Unknown Verified 01/03/25 14:25 conj w vancomycin Allergy Unknown Verified 01/03/25 16:25 Exam Narrative: Exam Narrative: General appearance: Alert, cooperative, and in no distress Gastrointestinal Abdominal: soft, not tender, not distended. Cholecystostomy tube is in place with small amount of yellow drainage adjacent to the tube. No tenderness to palpation in the right upper quadrant. There is brown in appearance drainage in the collection bag. Buttocks: In the left buttocks just lateral to the midline there is a large open wound that is mostly clean with good bleeding granulation tissue but has necrotic tissue overlying the bone. The sharpness of the bone was palpable. Superior to this wound there is an area slightly larger than quarter in size of superficial necrotic tissue. There is erythema surrounding this open wound but no abscess palpated. This was covered with Mepilex. The large decubitus ulcer was packed with wet to dry dressing changes and covered with ABD pad. Skin: Normal skin color, texture, and turgor. No rashes or lesions. Psychiatric: Alert, cooperative, normal affect. Const: Vital Signs, click to edit/add: Vital Signs - 24 hr 01/03/25 14:21 01/03/25 14:31 01/03/25 14:42 Temperature 96.6 F L Pulse Rate 75 76 Pulse Rate [Left P ulse Oximeter] 75 Respiratory Rate 18 Blood Pressure 112/48 L Blood Pressure [Le ft Upper Arm] 137/57 L Blood Pressure [Ri ght Arm] Pulse Oximetry 97 97 97 Oxygen Delivery Ma thod Room Air 01/03/25 14:45 01/03/25 14:47 01/03/25 15:02 Temperature Pulse Rate 74 73 Pulse Rate [Left P ulse Oximeter] Respiratory Rate Blood Pressure 107/44 L 108/44 L Blood Pressure [Le ft Upper Arm] Blood Pressure [Ri ght Arm] Pulse Oximetry 97 97 Oxygen Delivery Ma thod 01/03/25 15:11 01/03/25 15:15 01/03/25 15:17 Temperature Pulse Rate 76 74 73 Pulse Rate [Left P ulse Oximeter] Respiratory Rate Blood Pressure 99/45 L Blood Pressure [Le ft Upper Arm] Blood Pressure [Ri ght Arm] Pulse Oximetry 97 97 97 Oxygen Delivery Ma thod 01/03/25 15:18 01/03/25 15:30 01/03/25 15:32 Temperature Pulse Rate 73 71 69 Pulse Rate [Left P ulse Oximeter] Respiratory Rate Blood Pressure 98/48 L Blood Pressure [Le ft Upper Arm] Blood Pressure [Ri ght Arm] Pulse Oximetry 97 99 97 Oxygen Delivery Ma thod 01/03/25 15:45 01/03/25 15:48 01/03/25 16:00 Temperature Pulse Rate 70 72 76 Pulse Rate [Left P ulse Oximeter] Respiratory Rate Blood Pressure 120/54 L Blood Pressure [Le ft Upper Arm] Blood Pressure [Ri ght Arm] Pulse Oximetry 97 97 96 [facility] 01/03/25 16:02 01/03/25 16:03 01/03/25 16:15 Temperature Pulse Rate 73 77 72 Pulse Rate [Left P ulse Oximeter] Respiratory Rate Blood Pressure 118/49 L Blood Pressure [Le ft Upper Arm] Blood Pressure [Ri ght Arm] Pulse Oximetry 96 97 97 [facility] 01/03/25 16:17 01/03/25 16:36 01/03/25 16:45 Temperature Pulse Rate 81 81 Pulse Rate [Left P ulse Oximeter] Respiratory Rate Blood Pressure 119/56 L Blood Pressure [Le ft Upper Arm] Blood Pressure [Ri ght Arm] Pulse Oximetry 97 96 [facility] 01/03/25 16:47 01/03/25 17:00 01/03/25 17:02 Temperature Pulse Rate 81 78 81 Pulse Rate [Left P ulse Oximeter] Respiratory Rate Blood Pressure 131/60 141/56 H Blood Pressure [Le ft Upper Arm] Blood Pressure [Ri ght Arm] Pulse Oximetry 97 96 97 [facility] 01/03/25 17:15 01/03/25 17:17 01/03/25 17:30 Temperature Pulse Rate 80 79 80 Pulse Rate [Left P ulse Oximeter] Respiratory Rate Blood Pressure 129/53 L Blood Pressure [Le ft Upper Arm] Blood Pressure [Ri ght Arm] Pulse Oximetry 98 99 95 [facility] 01/03/25 17:32 01/03/25 17:33 01/03/25 17:45 Temperature Pulse Rate 79 79 78 Pulse Rate [Left P ulse Oximeter] Respiratory Rate Blood Pressure 136/56 L Blood Pressure [Le ft Upper Arm] Blood Pressure [Ri ght Arm] Pulse Oximetry 87 L 96 [facility] 01/03/25 17:47 01/03/25 18:00 01/03/25 18:01 Temperature Pulse Rate 80 79 81 Pulse Rate [Left P ulse Oximeter] Respiratory Rate Blood Pressure 124/48 L 128/60 Blood Pressure [Le ft Upper Arm] Blood Pressure [Ri ght Arm] Pulse Oximetry 97 98 98 [facility] 01/03/25 18:17 01/03/25 18:19 01/03/25 19:29 Temperature 98.3 F Pulse Rate 82 Pulse Rate [Left P ulse Oximeter] 86 Respiratory Rate 18 Blood Pressure 126/65 Blood Pressure [Le ft Upper Arm] Blood Pressure [Ri ght Arm] 122/84 Pulse Oximetry 92 95 Oxygen Delivery Ma thod Room Air 01/03/25 19:29 01/03/25 23:00 01/03/25 23:00 Temperature 98.2 F Pulse Rate Pulse Rate [Left P ulse Oximeter] 104 H Respiratory Rate 18 16 16 Blood Pressure Blood Pressure [Le ft Upper Arm] Blood Pressure [Ri ght Arm] 123/64 Pulse Oximetry 95 98 Oxygen Delivery Ma thod Room Air Room Air 01/03/25 23:00 01/04/25 03:00 01/04/25 08:09 Temperature 97.8 F 97.5 F L Pulse Rate Pulse Rate [Left P ulse Oximeter] 96 92 Respiratory Rate 16 16 20 Blood Pressure Blood Pressure [Le ft Upper Arm] Blood Pressure [Ri ght Arm] 111/50 L 106/53 L Pulse Oximetry 98 95 93 Oxygen Delivery Ma thod Room Air Room Air Room Air Results Labs Labs: Abnormal lab results 01/03/25 01/03/25 01/04/25 Range/Units 15:10 16:00 06:05 WBC 19.45 H (4.50-11.00) K/uL RBC 4.22 L 4.11 L (4.30-5.90) m/uL Hgb 10.4 L 10.2 L (13.5-17.5) gm/dL Hct 35.9 L 34.7 L (37.0-53.0) % MCH 25 L 25 L (26-34) pg MCHC 29 L 29 L (32-36) gm/dL RDW Coeff of Rey 19.4 H (11.5-15.5) % Neut % (Auto) 74.4 H (42.0-72.0) % Lymph % (Auto) 16.2 L (20-44) % Neut # (Auto) 8.00 H (1.7-7.0) K/uL Potassium 5.6 H (3.6-5.1) mmol/L BUN 49 H 52 H (7-30) mg/dL Creatinine 1.6 H (0.5-1.5) mg/dL Glucose 151 H 205 H (60-115) mg/dL Lactate 2.8 H 2.6 H (0.5-1.9) mmol/L C-Reactive Protein 15.3 H 16.0 H (0.5-1.0) mg/dL Ur Leukocyte Esterase Trace A (Negative) Urine Bacteria Few A (None) Diabetes panel 01/03/25 01/04/25 Range/Units 15:10 06:05 Sodium 135 135 (135-149) mmol/L Potassium 4.9 5.6 H (3.6-5.1) mmol/L Chloride 101 103 (96-114) mmol/L Carbon Dioxide 26 21 (20-32) mmol/L BUN 49 H 52 H (7-30) mg/dL Creatinine 1.2 1.6 H (0.5-1.5) mg/dL Glucose 151 H 205 H (60-115) mg/dL Calcium 9.4 8.9 (8.4-10.6) mg/dL AST 21 24 (12-35) U/L ALT 22 23 (4-50) U/L Alkaline Phosphatase 94 95 (40-150) U/L Total Protein 6.7 6.6 (6.0-8.3) g/dL Albumin 3.4 3.4 (3.3-5.0) g/dL Calcium panel 01/03/25 01/04/25 Range/Units 15:10 06:05 Calcium 9.4 8.9 (8.4-10.6) mg/dL Phosphorus 3.4 (2.5-4.5) mg/dL Albumin 3.4 3.4 (3.3-5.0) g/dL Pituitary panel 01/03/25 01/04/25 Range/Units 15:10 06:05 Sodium 135 135 (135-149) mmol/L Potassium 4.9 5.6 H (3.6-5.1) mmol/L Chloride 101 103 (96-114) mmol/L Carbon Dioxide 26 21 (20-32) mmol/L BUN 49 H 52 H (7-30) mg/dL Creatinine 1.2 1.6 H (0.5-1.5) mg/dL Glucose 151 H 205 H (60-115) mg/dL Calcium 9.4 8.9 (8.4-10.6) mg/dL Adrenal panel 01/03/25 01/04/25 Range/Units 15:10 06:05 Sodium 135 135 (135-149) mmol/L Potassium 4.9 5.6 H (3.6-5.1) mmol/L Chloride 101 103 (96-114) mmol/L Carbon Dioxide 26 21 (20-32) mmol/L BUN 49 H 52 H (7-30) mg/dL Creatinine 1.2 1.6 H (0.5-1.5) mg/dL Glucose 151 H 205 H (60-115) mg/dL Calcium 9.4 8.9 (8.4-10.6) mg/dL Total Bilirubin 0.4 0.6 (0.1-1.5) mg/dL AST 21 24 (12-35) U/L ALT 22 23 (4-50) U/L Alkaline Phosphatase 94 95 (40-150) U/L Total Protein 6.7 6.6 (6.0-8.3) g/dL Albumin 3.4 3.4 (3.3-5.0) g/dL All other labs normal. Progress Note:A&P Assessment and plan (1) Stage IV pressure ulcer of left buttock: Status: Acute (2) Sepsis: Status: Acute Plan 75-year-old male with diabetes paraplegic on Eliquis presents with worsening stage IV decubitus ulcer. I discussed with the patient and his daughter Gucci Juarez with his power of senior trial attorney patient's clinical findings. Although his left decubitus ulcer was debrided on 12/13/2024, it has necrotic tissue overlying the bone with evidence of osteomyelitis. He also has this new worsening wound superior to the large open wound and I am concerned for fat necrosis underlying this wound. I recommended to proceed with excisional debridement of both wounds in the operating room. The procedure was discussed in detail to Maurizio covarrubias. The risks associated procedure including infection and bleeding were also discussed. Since patient is on Eliquis with the last dose of Eliquis yesterday, we would like to ideally wait for at least another 24 hours for Eliquis to get out of his system. Will plan on debridement tomorrow. If patient continues to get worse clinically, we will have to take him to the operating room later today. We will keep the patient on clears for now in anticipation of that. Patient's daughter gave consent to proceed with surgery. She confirms that patient is full code. Patient's cholecystostomy tube is in place. He has no abdominal pain concerning for worsening of his acute cholecystitis. His liver function tests are normal. I do not think there is any abdominal etiology contributing to his clinical worsening.
--- NOTE | 2025-01-04 08:35 | CRLHL7_ITS ---
For Patients: As a result of the Century Cures Act, medical imaging exams and procedure reports are released immediately into your electronic medical record. You may view this report before your referring provider. If you have questions, please contact your health care provider. Indication: : PICC placement TECHNIQUE: Single-view chest. FINDINGS: The lungs are clear. The heart, mediastinum and pulmonary vessels are of normal size. There is no evidence of pleural disease. Right PICC line likely at the cavoatrial junction difficult to visualize. Lower chest is not imaged. Dictated by Billie Headley MD @ 01/04/2025 11:58:30 AM (Electronically Signed)
[2025-01-04 08:47] LABS: HCO3 VBG 22 mmol/L (21-28); PCO2 VBG 38 mmHG (40-50); PO2 VBG 51.8 mmHG (25-47); pH VBG 7.369 (7.32-7.43)
[2025-01-04] MEDS: ACETAMINOPHEN 500 MG TABLET 1000 MG PO (09:25)
[2025-01-04] MEDS: OMEPRAZOLE 20 MG CAPSULE DR 40 MG PO (09:25)
[2025-01-04] MEDS: BACLOFEN 10 MG TABLET PO ×2 (09:25→22:00)
[2025-01-04] MEDS: SENNOSIDES/DOCUSATE TABLET 2 TAB PO (09:25)
[2025-01-04] MEDS: allopurinoL 100 MG TABLET PO (09:25)
[2025-01-04] MEDS: POTASSIUM CHLORIDE 10 MEQ CAPSULE ER PO ×2 (09:26→19:20)
[2025-01-04] MEDS: INSULIN ASPART 100 UNIT/ML SUBCUT ×3 (09:27→19:20)
[2025-01-04] MEDS: 0.9 % SODIUM CHLORIDE 1000 ml 1,000 ML 125 ML IV (09:28)
--- NOTE | 2025-01-04 11:26 | REH.OT ---
OT/PT consult orders received. Pt. evaluation is on hold d/t medical condition. Will attempt evaluation when medically appropriate.
[2025-01-04 11:45] LABS: Chloride* 105 mmol/L (96-114); Potassium* 4.5 mmol/L (3.6-5.1); Sodium* 136 mmol/L (135-149)
[2025-01-04 11:48] LABS: Anion Gap 10 mEq/L (7-15); Blood Urea Nitrogen* 51 mg/dL (7-30); Calcium* 8.4 mg/dL (8.4-10.6); Carbon Dioxide* 21 mmol/L (20-32); Est. Creatinine Clearance* 35.03; Estimated Glomerular Filt Rate 34 ml/min; Glucose* 193 mg/dL (60-115)
[2025-01-04] MEDS: MEROPENEM 1 GM in 0.9 % SODIUM CHLORIDE Mini-bag 100 ML IVPB (12:37)
[2025-01-04] MEDS: 0.9 % SODIUM CHLORIDE 1000 ml 1,000 ML 200 ML IV ×2 (14:43→19:24)
[2025-01-04 16:59] LABS: HCO3 VBG 22 mmol/L (21-28); Lactate* 1.3 mmol/L (0.5-1.9); PCO2 VBG 46 mmHG (40-50); PO2 VBG 45.1 mmHG (25-47); pH VBG 7.291 (7.32-7.43)
[2025-01-04 17:14] LABS: Chloride* 106 mmol/L (96-114)
[2025-01-04 17:15] LABS: Potassium* 3.9 mmol/L (3.6-5.1); Sodium* 136 mmol/L (135-149)
[2025-01-04 17:17] LABS: Blood Urea Nitrogen* 53 mg/dL (7-30); Creatinine* 2.2 mg/dL (0.5-1.5); Est. Creatinine Clearance* 31.84; Estimated Glomerular Filt Rate 30 ml/min
[2025-01-04 17:18] LABS: Anion Gap 8 mEq/L (7-15); Calcium* 8.2 mg/dL (8.4-10.6); Carbon Dioxide* 22 mmol/L (20-32); Glucose* 143 mg/dL (60-115)
--- NOTE | 2025-01-04 19:39 | PC.NURSE ---
End of shift [id number]: patient's VSS, RA, tolerating a clear liquid diet. Patient repo Q2 hrs. Dressing change to bottom changed x2 wet to dry kerlix and ABD. Mepelix to wound on buttock changed x1 C/D/I. PICC line to R FA patent and running NSR @200mls/hr. Little output from Eason today, aware Bolus and fluid rate increased. Labs ordered and checked. Patient Afebrile this shift. Blood sugars checked and sliding scale used. NPO at midnight for possible surgery/debridement in the AM. Patient on contact precautions.
[2025-01-04] MEDS: BACITRACIN OINTMENT BULK TUBE 1 APPLIC TOPICAL (22:00)
[2025-01-04] MEDS: LATANOPROST 0.005% OPHTH 1 DROP EYE-BOTH (22:01)
[2025-01-05] VITALS (21 sets, daily range): BP systolic 94–150; BP diastolic 43–76; PULSE 66–84; RESP 14–20; TEMP 35.7–36.8; O2SAT 90–99
[2025-01-05] MEDS: MEROPENEM 1 GM in 0.9 % SODIUM CHLORIDE Mini-bag 100 ML IVPB ×2 (00:56→12:35)
[2025-01-05] MEDS: 0.9 % SODIUM CHLORIDE 1000 ml 1,000 ML 200 ML IV ×2 (00:56→06:54)
[2025-01-05 06:52] LABS: Lactate* 0.9 mmol/L (0.5-1.9)
--- NOTE | 2025-01-05 06:56 | PC.NURSE ---
Pt is alert and oriented x3. Afebrile. Pt denies pain, chest pain, SOB, and N/V. Pt?s hoskins is patent and draining. Pt's Cholecystostomy Tube is patent and draining. Pt had x1 large loose BM. Pt?s sacral dressings were changed. Pt has been NPO since 0000 tolerating well. Pt was turned and repositioned throughout night. ?
[2025-01-05 07:09] LABS: Albumin* 2.7 g/dL (3.3-5.0); Chloride* 109 mmol/L (96-114); Hematocrit 27.3 % (37.0-53.0); Mean Corpuscular HGB Conc 29 gm/dL (32-36); Mean Corpuscular Hemoglobin 25 pg (26-34); Mean Corpuscular Volume 87 fL (80-100); Platelet Count* 219 K/uL (140-440); Potassium* 4.7 mmol/L (3.6-5.1); Red Blood Count 3.15 m/uL (4.30-5.90); Sodium* 136 mmol/L (135-149); White Blood Count* 12.12 K/uL (4.50-11.00)
[2025-01-05 07:12] LABS: Blood Urea Nitrogen* 48 mg/dL (7-30); Est. Creatinine Clearance* 35.03; Estimated Glomerular Filt Rate 34 ml/min; Hemoglobin* 7.9 gm/dL (13.5-17.5); Slide Review Reflex No
[2025-01-05 07:13] LABS: Anion Gap 7 mEq/L (7-15); Calcium* 8.1 mg/dL (8.4-10.6); Carbon Dioxide* 20 mmol/L (20-32); Glucose* 109 mg/dL (60-115); Phosphorus* 5.4 mg/dL (2.5-4.5)
[2025-01-05 07:29] LABS: Procalcitonin* 1.47 ng/mL (<0.50)
[2025-01-05 07:35] LABS: C Reactive Protein* 11.5 mg/dL (0.5-1.0)
--- NOTE | 2025-01-05 07:40 | P.IMPN_ITS ---
Assessment and Plan Assessment and plan (1) Sepsis: Problem comment: 01/05 -Improved. afebrile. HR Less than 75. BP 115/47. Lactate normal. CRP downtrending. UOP improved. 01/04 -HR 96-104. afebrile. Lactate still >2. WBC up to 19.45. BC NTD. UC NTD. CRP uptrending. BP low normal. giving fluid bolus and trending labs. -on broad spectrum abx (dapto and zosyn) upon admission. Given BISHOP and hx of ESBL - will switch to meropenem monotherapy. -BISHOP noted today, Creat up to 1.6 (further increase to 2.0) with GFR down from 90's to 30's -bolus ordered and ongoing IVF ordered. -holding antihypertensive's and metformin. Status: Acute (2) Osteomyelitis: Problem comment: - 01/03/25 CT abd/pelvis: Significantly increased size of a large left posterior gluteal decubitus ulcer, with open wound extending to the level of the left ischial tuberosity where there is cortical destruction compatible with osteomyelitis. Adjacent inflammatory changes are present. - Admit to hospital. Surgical consultation requested, Dr. Randall will see tomorrow AM. NPO after MN in case she warrants OR debridement. BC obtained. Empiric pip/tazo and daptomycin (allergy to vancomycin). Off-loading efforts. Will need on-going wound care support. Consider hyperbaric oxygen therapy. -01/04 - switched to meropenem, renally dosed, monotherapy. Gen surg is planning debridement on 01/05. added air mattress. giving IVF support. -01/05 - surgical debridement. continue with IV meropenem. awaiting bone and tissue cultures. MRSA swab negative. BCNTD. Status: Acute (3) Stage IV pressure ulcer of left buttock: Problem comment: -see osteomyelitis notes Status: Acute (4) Leukocytosis: Problem comment: -01/04 WBC up to 19.45. BC NTD. UC NTD. -01/05 improving. Status: Acute (5) BISHOP (acute kidney injury): Problem comment: 01/04 -BISHOP noted today, Creat up to 1.6 then 2.0 then 2.2. with GFR down from 90's to 30's. etiology daptomycin dose with dehydration (pre-renal) contributing 01/05 - improved/stable. UOP improved. continue monitoring. Status: Acute (6) Anemia, chronic disease: Problem comment: -worsened by dilution/bolus and now ABLA from debridement -multifactorial -no GI bleed suspected. Eliquis is on hold. 01/05 - will recheck 1600, transfuse as necessary Status: Acute (7) Multiple sclerosis: Problem comment: Bed-bound Status: Acute (8) Paraplegia: Problem comment: -due to MS Status: Acute (9) Diabetes mellitus: Problem comment: Hemoglobin A1c was 7.6 on 11/16/2024. On metformin (on hold). SSI ACHS. Status: Acute (10) Hoskins catheter in place: Problem comment: - chronic Status: Chronic Subjective Date Seen: 01/05/25 Interval history: Daily Progress Note - Hospital Medicine Day #: 3 Operative Day: 1. Excisional debridement of the left superior buttocks ulcer 9 x 6 x 2.5 cm deep. 2. Excisional debridement of the left ischial decubitus ulcer 7.5 x 4 x 5 cm deep. CC: weakness, AMS, foul smelling wounds Pre-op diagnosis: Stage IV left decubitus ulcer with osteomyelitis and left superior buttocks ulcer down to the joint capsule. 24 HOUR UPDATE: Surgery this morning, Krystle Prakash PICC line placed 01/04 BISHOP noted; likely from the daptomycin and volume contraction from sepsis. IVF ongoing. not hypotensive. Hgb this am is 7.9 - went to the OR - will be rechecking this afternoon. monotherapy with meropenem 1 gram q 12 given BISHOP RN: Pt is alert and oriented x3. Afebrile. Pt denies pain, chest pain, SOB, and N/V. Pt?s hoskins is patent and draining. Pt's Cholecystostomy Tube is patent and draining. Pt had x1 large loose BM. Pt?s sacral dressings were changed. Pt has been NPO since 0000 tolerating well. Pt was turned and repositioned throughout night. ? Notable Labs, Micro, Rads, Interventions: Blood pressures have been stable. Lowest systolic was yesterday morning at 101/44. Currently 109/61 and overnight 120s over 60s to 90s Pulse in the 80s Respiratory rate 18 to 20 Pulse ox 97% on room air Blood glucose essentially under 200 low 127. White count is down from 19.4-12.1 Hemoglobin is down 3 points 10.2-7.9 with no obvious bleeding. Wounds are serosanguineous. But he has been IV fluids all night. Mildly acidotic with pH of 7.29 Creatinine peaked to 2.2 last evening and is down to 2.0 this morning. Electrolytes are normal. Blood in urine cultures are negative to date. MRSA pending. Wound cultures will likely be obtained during surgery this morning We have wound cultures from 20 days ago that outline Gram-negative bacteria. We are treating to those. Objective: Vitals: see above Lungs: Clear. Cardiac: S1S2. Neuro: paraplegic and nearly insensate to lower extremities. 01/04/25 large left open wound 7x7cm and 8-10cm deep; bone exposed 2nd wound proximal left buttock 3x4cm indurated/fluctuance noted deep to open wound Disposition/Potential discharge - Today I spent 50minutes seeing the patient, reviewing Expanse and EPIC notes/diagnostics, discussing the care plan with our care time that includes social work, PT/OT, pharmacy, RT, half-way and documenting my impressions and plan in the medical record. Exam 2 Const: Vital Signs, click to edit/add: Vital Signs - 24 hr 01/04/25 08:09 01/04/25 11:00 01/04/25 15:00 Temperature 97.5 F L 98.0 F Pulse Rate [Left P ulse Oximeter] 92 96 78 Respiratory Rate 20 18 18 Blood Pressure [Le ft Arm] 101/44 L Blood Pressure [Ri ght Arm] 106/53 L Pulse Oximetry 93 96 Oxygen Delivery Me thod Room Air Room Air 01/04/25 15:00 01/04/25 15:00 01/04/25 20:03 Temperature 98.2 F 97.8 F Pulse Rate [Left P ulse Oximeter] 78 82 Respiratory Rate 18 18 16 Blood Pressure [Le ft Arm] 122/66 121/62 Blood Pressure [Ri ght Arm] Pulse Oximetry 98 98 97 Oxygen Delivery Me thod Room Air Room Air Room Air 01/04/25 22:11 01/04/25 23:00 01/04/25 23:00 Temperature 97.5 F L Pulse Rate [Left P ulse Oximeter] 87 70 Respiratory Rate 20 20 18 Blood Pressure [Le ft Arm] 124/97 H Blood Pressure [Ri ght Arm] Pulse Oximetry 99 98 Oxygen Delivery Me thod Room Air Room Air 01/05/25 02:55 Temperature 97.4 F L Pulse Rate [Left P ulse Oximeter] 84 Respiratory Rate 18 Blood Pressure [Le ft Arm] 109/61 Blood Pressure [Ri ght Arm] Pulse Oximetry 97 Oxygen Delivery Me thod Room Air Labs Labs: Laboratory Results - last 24 hr 01/04/25 01/04/25 01/04/25 06:05 07:56 08:39 WBC RBC Hgb Hct MCV MCH MCHC Plt Count VBG pH 7.369 VBG pCO2 38 L VBG pO2 51.8 H VBG HCO3 22 Sodium Potassium Chloride Carbon Dioxide Anion Gap BUN Creatinine Estimated Creat Clear Estimated GFR Glucose Lactate Calcium Phosphorus Total Bilirubin 0.6 Direct Bilirubin 0.4 AST 24 ALT 23 Alkaline Phosphatase 95 C-Reactive Protein Total Protein 6.6 Albumin 3.4 Procalcitonin 2.06 H Lab Acknowledgement Test Added Test Added 01/04/25 01/04/25 01/04/25 09:05 11:28 16:55 WBC RBC Hgb Hct MCV MCH MCHC Plt Count VBG pH 7.291 L VBG pCO2 46 VBG pO2 45.1 VBG HCO3 22 Sodium 136 136 Potassium 4.5 3.9 Chloride 105 106 Carbon Dioxide 21 22 Anion Gap 10 8 BUN 51 H 53 H Creatinine 2.0 H 2.2 H Estimated Creat Clear 35.03 31.84 Estimated GFR 34 30 Glucose 193 H 143 H Lactate 1.3 Calcium 8.4 8.2 L Phosphorus Total Bilirubin Direct Bilirubin AST ALT Alkaline Phosphatase C-Reactive Protein Total Protein Albumin Procalcitonin Lab Acknowledgement Test Added 01/05/25 06:40 WBC 12.12 H RBC 3.15 L Hgb 7.9 L* Hct 27.3 L MCV 87 MCH 25 L MCHC 29 L Plt Count 219 VBG pH VBG pCO2 VBG pO2 VBG HCO3 Sodium 136 Potassium 4.7 Chloride 109 Carbon Dioxide 20 Anion Gap 7 BUN 48 H Creatinine 2.0 H Estimated Creat Clear 35.03 Estimated GFR 34 Glucose 109 Lactate 0.9 Calcium 8.1 L Phosphorus 5.4 H Total Bilirubin Direct Bilirubin AST ALT Alkaline Phosphatase C-Reactive Protein 11.5 H Total Protein Albumin 2.7 L Procalcitonin 1.47 H Lab Acknowledgement
[2025-01-05] MEDS: POTASSIUM CHLORIDE 10 MEQ CAPSULE ER PO (08:32)
[2025-01-05] MEDS: LACTATED RINGERS 1000 ML 1,000 ML 125 ML IV ×2 (08:33→16:46)
[2025-01-05] MEDS: ACETAMINOPHEN 500 MG TABLET 1000 MG PO ×2 (08:35→20:38)
[2025-01-05] MEDS: OMEPRAZOLE 20 MG CAPSULE DR 40 MG PO (08:35)
[2025-01-05] MEDS: BACLOFEN 10 MG TABLET PO ×2 (08:36→20:38)
[2025-01-05] MEDS: allopurinoL 100 MG TABLET PO (08:36)
[2025-01-05] MEDS: SODIUM CHLORIDE 0.9 % (FLUSH) 10 ML SYRINGE 5 ML IVF ×2 (08:36→20:38)
--- NOTE | 2025-01-05 09:35 | PM.GSPRC ---
Operative Note Date of procedure: 01/05/25 Pre-op diagnosis: 1. Stage IV left decubitus ulcer. 2. Stage II left superior buttocks ulcer. Post-op diagnosis: 1. Stage IV left decubitus ulcer with osteomyelitis. 2. Stage IV left superior buttocks ulcer down to the joint capsule. Type of Procedure: 1. Excisional debridement of the left superior buttocks ulcer 9 x 6 x 2.5 cm deep. 2. Excisional debridement of the left ischial decubitus ulcer 7.5 x 4 x 5 cm deep. Indications: 75-year-old male On Eliquis was admitted to the hospital with worsening left stage IV decubitus ulcer. Patient was treated for his chronic decubitus ulcer in wound clinic. His caring staff at the longterm noted increased foul smell from the wound and worsening of the wound appearance. Patient was brought to the emergency room. He was found to have initially normal WBC which increased to 19 on the day after admission. His CRP was elevated. patient was in acute renal failure with creatinine of 2.2. An abdominal and pelvic CT was obtained that showed large left decubitus ulcer with evidence of osteomyelitis. Superior to this decubitus ulcer there was another area of inflamed fat necrosis. On clinical exam patient has a left decubitus ulcer that is with then 2-3 cm from the anus. At the base of the ulcer there is exposed bone with necrotic appearing tissue overlying the bone. Superior to his large wound there is a stage II decubitus ulcer that has surrounding erythema and is soft to palpation. There is no evidence of the abscess. There is no purulent drainage from this wound. Given patient's clinical worsening and appearance of his wounds, excision or debridement in the operating room was recommended. The procedure was discussed in detail. The risks associated procedure including infection, bleeding, and the need for additional procedures, as well as prolonged healing were all discussed with the patient's power of department of mathematics chair, his daughter, and she agreed to proceed. Procedure Description: After discussing the risks and benefits of the procedure, the patient signed informed consent.? The operative site was marked and the patient was brought to the operating room and placed on the operating table in the right lateral decubitus position.? Care was taken to pad the patient's pressure points.?? The patient was then sedated by anesthesia.?? The operative site was then prepped and draped in the usual sterile fashion.? A time-out was then performed. I first started with debridement of left superior buttocks stage II decubitus ulcer. A circular skin incision was made with cautery excising the necrotic soft tissue. Once this incision was made necrotic fat was immediately seen. The fat was dry and crumbling 1 grasped. The skin incision was extended inferiorly trying to preserve as much skin as possible. Subcutaneous necrotic fat was then excised sharply with cautery down to the healthy appearing fat. This excision of debridement was carried down to the ligamentous tissues overlying the coccyx. The muscle insertions over the coccyx were bluntly debrided with a curette to excise all necrotic fat between the ligaments. Hemostasis was achieved with cautery. When all of the necrotic fat was excised, the wound was measuring 9 x 6 cm deep. It was 2.5 cm deep. Moist Ray-Mariah was placed into the wound. I then directed my attention to the large left ischial decubitus ulcer. Necrotic tissue was seen overlying the ischial bone. This was sharply debrided with cautery and bluntly debrided with a curette. The bone was soft and crumbling. A few pieces of the bone were sent to microbiology for culture. Small amount of Necrotic muscle was noted superiorly and laterally. This was debrided sharply with cautery down to the bleeding muscle. Medially, necrotic soft fat was excised with cautery down to the muscle and the joint capsule. Some blunt debridement of white slough was also performed to remove necrotic tissue. Hemostasis was achieved with cautery and Vicryl stick tie. Bone wax was used to control bleeding from the ischial bone. All necrotic tissue was removed. The left decubitus ulcer wound was similar in size to the beginning of the procedure and was measuring 7.5 x 4 cm. It was measured 5 cm deep. Approximately 30% of tissue was necrotic and was debrided from this wound and the rest of the wound was healthy in appearance. The Ray-Mariah was then removed from the superior buttocks wound. Both wounds were irrigated with normal saline. Both wounds were then packed with moist Kerlix roll and covered by ABD. Sterile dressings were then applied. ? The patient was then woken and transported to the recovery area in stable condition. ? The patient tolerated the procedure well. Findings: Left superior buttocks wound with necrotic crumbling fat debrided down to the healthy fat and bleeding tissue. Open large left decubitus ulcer wound had small amount of necrotic muscle and necrotic bone that was debrided. Some necrotic soft tissue was seen and also debrided. Anesthesia: MAC Surgeon: Patricia Randall MD Estimated blood loss (mL): 40 Additional Specimen Information: 1. Left ischial bone for culture. Condition: stable Disposition: floor
--- NOTE | 2025-01-05 09:38 | REH.PT ---
PT eval cancelled for this patient. Did talk with pt regarding PLOF. At baseline pt is a Jack lift, paraplegic. Pt notes he gets full assist from staff for rolling in bed as he is not able to move in bed on his own. Due to this PLOF, PT consult is not indicated. Staff is currently using Jack lift for this pt. Will be getting surgical debridement today of wound. PT not indicated, order to be cancelled.
[2025-01-05] MEDS: HYDROmorphone 0.5 mg/0.5 ml inj IVP ×2 (12:11→12:39)
--- NOTE | 2025-01-05 13:27 | P.ANES_ITS ---
Anesthesia Charges Start Date/Time Anesthesia Start Date: 01/05/25 Anesthesia Start Time: 09:48 Stop Date/Time Anesthesia Stop Date: 01/05/25 Anesthesia Stop Time: 12:05 Summary Extremes of Age - Over 70 or under 1: SUSPENDER MAKER Coding CPT Codes CPT Codes: ANESTH ANORECTAL SURGERY - 77643 ([id number]) P3 - PATIENT W/SEVERE SYS DISEASE, QZ - SUSPENDER MAKER SVC W/O CATERPILLAR OPERATOR BY Additional Codes: Summary - Extremes of Age - Over 70 or under 1: SUSPENDER MAKER ([id number])
--- NOTE | 2025-01-05 13:27 | W.ANESCHARGE ---
Anesthesia Charges Start Date/Time Anesthesia Start Date: 01/05/25 Anesthesia Start Time: 09:48 Stop Date/Time Anesthesia Stop Date: 01/05/25 Anesthesia Stop Time: 12:05 Summary Extremes of Age - Over 70 or under 1: ELECTRONIC PAGE MAKEUP SYSTEM OPERATOR Coding CPT Codes CPT Codes: ANESTH ANORECTAL SURGERY - 51786 ([id number]) P3 - PATIENT W/SEVERE SYS DISEASE, QZ - ELECTRONIC PAGE MAKEUP SYSTEM OPERATOR SVC W/O BUHR MILL OPERATOR BY Additional Codes: Summary - Extremes of Age - Over 70 or under 1: ELECTRONIC PAGE MAKEUP SYSTEM OPERATOR ([id number])
--- NOTE | 2025-01-05 14:58 | RESP.RT ---
Patient is having periods of apnea while sleeping. SATs are 96% while awake on room air. Outpatient sleep study recommended.
[2025-01-05] MEDS: ONDANSETRON ODT 4 MG TAB PO (16:45)
[2025-01-05 16:51] LABS: HCO3 VBG 21 mmol/L (21-28); PCO2 VBG 48 mmHG (40-50); PO2 VBG 51.2 mmHG (25-47); pH VBG 7.257 (7.32-7.43)
[2025-01-05 16:54] LABS: Hematocrit 25.7 % (37.0-53.0); Mean Corpuscular HGB Conc 29 gm/dL (32-36); Mean Corpuscular Hemoglobin 25 pg (26-34); Mean Corpuscular Volume 87 fL (80-100); Platelet Count* 186 K/uL (140-440); Red Blood Count 2.97 m/uL (4.30-5.90); White Blood Count* 8.98 K/uL (4.50-11.00)
[2025-01-05 16:57] LABS: Hemoglobin* 7.5 gm/dL (13.5-17.5); Slide Review Reflex No
[2025-01-05 17:09] LABS: Albumin* 2.7 g/dL (3.3-5.0); Chloride* 110 mmol/L (96-114); Potassium* 4.9 mmol/L (3.6-5.1); Sodium* 136 mmol/L (135-149)
[2025-01-05 17:12] LABS: Anion Gap 5 mEq/L (7-15); Blood Urea Nitrogen* 43 mg/dL (7-30); Calcium* 8.4 mg/dL (8.4-10.6); Carbon Dioxide* 21 mmol/L (20-32); Creatinine* 1.6 mg/dL (0.5-1.5); Est. Creatinine Clearance* 43.78; Estimated Glomerular Filt Rate 45 ml/min; Glucose* 92 mg/dL (60-115); Phosphorus* 4.7 mg/dL (2.5-4.5)
--- NOTE | 2025-01-05 20:05 | PC.NURSE ---
End of shift-- Pt very drowsy this afternoon r/t residual anesthesia and pain meds. Alert to shaking only and unable to follow simple commands. MD was notified due to change in LOC and did come to see patient at the bedside. This evening, pt is much more awake and improved toward his baseline. VSS and pt is afebrile. SPO2 maintained >90% on RA aside from during his noted brief periods of apnea. He denied any pain. Surgical dressings x2 are C/D/I. Pt repositioned only this shift. LS CTA. Eason is patent and drained 275ml of clear, yellow urine this shift. 20ml drained from biliary tube. Pt had 1x 100ml bilious emesis and was given Zofran ODT with apparent improvement. He was unable to swallow pills or take in PO this afternoon. BG 97. LR running at 125ml. Report to JEAN CARLOS Leon and all questions were answered.
[2025-01-05] MEDS: OXYCODONE 5 MG TABLET PO (20:37)
[2025-01-05] MEDS: BACITRACIN OINTMENT BULK TUBE 1 APPLIC TOPICAL (20:39)
[2025-01-05] MEDS: LATANOPROST 0.005% OPHTH 1 DROP EYE-BOTH (20:39)
[2025-01-06] VITALS (23 sets, daily range): BP systolic 141–188; BP diastolic 45–100; PULSE 76–98; RESP 12–20; TEMP 36.4–37.3; O2SAT 94–97; BMI 32.5
[2025-01-06] MEDS: HYDROmorphone 0.5 mg/0.5 ml inj IVP (00:19)
[2025-01-06] MEDS: MEROPENEM 1 GM in 0.9 % SODIUM CHLORIDE Mini-bag 100 ML IVPB ×3 (00:41→20:37)
[2025-01-06] MEDS: diphenhydrAMINE 50 MG/ML inj 25 MG IVP (01:59)
[2025-01-06] MEDS: 0.9 % SODIUM CHLORIDE 250 ml IV (01:59)
[2025-01-06] MEDS: LACTATED RINGERS 1000 ML 1,000 ML 125 ML IV ×2 (04:38→12:36)
[2025-01-06] MEDS: SODIUM CHLORIDE 0.9 % (FLUSH) 10 ML SYRINGE 5 ML IVF ×3 (05:48→20:38)
[2025-01-06] MEDS: OMEPRAZOLE 20 MG CAPSULE DR 40 MG PO ×2 (05:58→17:34)
[2025-01-06 06:09] LABS: Hematocrit 23.5 % (37.0-53.0); Mean Corpuscular HGB Conc 29 gm/dL (32-36); Mean Corpuscular Hemoglobin 26 pg (26-34); Mean Corpuscular Volume 88 fL (80-100); Platelet Count* 161 K/uL (140-440); Red Blood Count 2.68 m/uL (4.30-5.90); White Blood Count* 5.83 K/uL (4.50-11.00)
[2025-01-06 06:11] LABS: Hemoglobin* 6.9 gm/dL (13.5-17.5); Slide Review Reflex No
[2025-01-06 06:21] LABS: Chloride* 111 mmol/L (96-114)
[2025-01-06 06:22] LABS: Albumin* 2.2 g/dL (3.3-5.0); Potassium* 4.4 mmol/L (3.6-5.1); Sodium* 136 mmol/L (135-149)
[2025-01-06 06:24] LABS: Blood Urea Nitrogen* 28 mg/dL (7-30); Creatinine* 0.8 mg/dL (0.5-1.5); Est. Creatinine Clearance* 70.06; Estimated Glomerular Filt Rate 92 ml/min
[2025-01-06 06:25] LABS: Anion Gap 6 mEq/L (7-15); Calcium* 8.1 mg/dL (8.4-10.6); Carbon Dioxide* 19 mmol/L (20-32); Glucose* 85 mg/dL (60-115); Phosphorus* 2.8 mg/dL (2.5-4.5)
[2025-01-06 06:28] LABS: C Reactive Protein* 5.7 mg/dL (0.5-1.0)
--- NOTE | 2025-01-06 06:34 | PC.NURSE ---
Pt is alert and oriented self only, pt had moments of confusion pt wanted to go home stating ?You guys are keeping me?here against my?will.? Several attempts made by RN to reorient pt with little success. Pt called his daughter Malika and talked to her for several minutes, then gave phone to RN and RN updated pt?s daughter on confusion and pain medications side effects and MD aware.?Pt appeared to calm down after talking to daughter, allowing staff to do cares.?Afebrile. Pt reports 5-10/10 pain in left buttock, pain managed with PRN medications. Pt had 1 unit of blood, tolerated well. Pt reported itchy arms 5-10 mins after 1 hour alex of blood being finished, applied lotion and updated MD Workman ([facility]) orders given for One time dose of diphenhydramine, pt reported relief.??Pt?s hoskins is patent and draining. Pt?s sacral dressings are CDI. Pt was turned and repositioned throughout night. ?
--- NOTE | 2025-01-06 07:36 | P.IMPN_ITS ---
Assessment and Plan Assessment and plan (1) Sepsis: Problem comment: -01/06 - improving. WBC normal. inflammatory markers improved. BISHOP resolved. still delirious and at times hopeless. increased meropenem to q8 h -01/05 -Improved. afebrile. HR Less than 75. BP 115/47. Lactate normal. CRP down trending. UOP improved. 01/04 -HR 96-104. afebrile. Lactate still >2. WBC up to 19.45. BC NTD. UC NTD. CRP uptrending. BP low normal. giving fluid bolus and trending labs. -on broad spectrum abx (dapto and zosyn) upon admission. Given BISHOP and hx of ESBL - will switch to meropenem monotherapy. -BISHOP noted today, Creat up to 1.6 (further increase to 2.0) with GFR down from 90's to 30's -bolus ordered and ongoing IVF ordered. -holding antihypertensive's and metformin. Status: Acute (2) Osteomyelitis: Problem comment: - 01/03/25 CT abd/pelvis: Significantly increased size of a large left posterior gluteal decubitus ulcer, with open wound extending to the level of the left ischial tuberosity where there is cortical destruction compatible with osteomyelitis. Adjacent inflammatory changes are present. - Admit to hospital. Surgical consultation requested, Dr. Randall will see tomorrow AM. NPO after MN in case she warrants OR debridement. BC obtained. Empiric pip/tazo and daptomycin (allergy to vancomycin). Off-loading efforts. Will need on-going wound care support. Consider hyperbaric oxygen therapy. -01/04 - switched to meropenem, renally dosed, monotherapy. Gen surg is planning debridement on 01/05. added air mattress. giving IVF support. -01/05 - surgical debridement. continue with IV meropenem. awaiting bone and tissue cultures. MRSA swab negative. BCNTD. Status: Acute (3) Stage IV pressure ulcer of left buttock: Problem comment: -see osteomyelitis notes Status: Acute (4) Anemia, chronic disease: Problem comment: -worsened by dilution/bolus and now ABLA from debridement -multifactorial -no GI bleed suspected. Eliquis is on hold. 01/05 -1 unit 01/06 - 2 units transfused Status: Acute (5) Multiple sclerosis: Problem comment: Bed-bound Status: Acute (6) Paraplegia: Problem comment: -due to MS Status: Acute (7) Diabetes mellitus: Problem comment: Hemoglobin A1c was 7.6 on 11/16/2024. On metformin (on hold). SSI ACHS. Status: Acute (8) Hoskins catheter in place: Problem comment: - chronic Status: Chronic Subjective Date Seen: 01/06/25 Interval history: Daily Progress Note - Hospital Medicine Day #: 4 Operative Day: 1. Excisional debridement of the left superior buttocks ulcer 9 x 6 x 2.5 cm deep. 2. Excisional debridement of the left ischial decubitus ulcer 7.5 x 4 x 5 cm deep. CC: weakness, AMS, foul smelling wounds Pre-op diagnosis: Stage IV left decubitus ulcer with osteomyelitis and left superior buttocks ulcer down to the joint capsule. 24 HOUR UPDATE: Surgery 01/05, Krystle Randall PICC line placed 01/04 BISHOP noted; likely from the daptomycin and volume contraction from sepsis. IVF ongoing. not hypotensive. RESOLVED Hgb this am is 6.9; that is after 1 unit transfusion last night; ordering 2 more 01/06 monotherapy with meropenem 1 gram q 12 will be transitioned back to q8h RN: Pt is alert and oriented self only, pt had moments of confusion pt wanted to go home stating ?You guys are keeping me?here against my?will.? Several attempts made by RN to reorient pt with little success. Pt called his daughter Malika and talked to her for several minutes, then gave phone to RN and RN updated pt?s daughter on confusion and pain medications side effects and MD aware.?Pt appeared to calm down after talking to daughter, allowing staff to do cares.?Afebrile. Pt reports 5-10/10 pain in left buttock, pain managed with PRN medications. Pt had 1 unit of blood, tolerated well. Pt reported itchy arms 5-10 mins after 1 hour alex of blood being finished, applied lotion and updated MD Workman (Boy) orders given for One time dose of diphenhydramine, pt reported relief.??Pt?s hoskins is patent and draining. Pt?s sacral dressings are CDI. Pt was turned and repositioned throughout night. ? Notable Labs, Micro, Rads, Interventions: Blood pressures have been stable. Lowest systolic was yesterday morning at 101/44. Currently 109/61 and overnight 120s over 60s to 90s Pulse in the 80s Respiratory rate 18 to 20 Pulse ox 97% on room air Blood glucose essentially under 200 low 127. White count is now normal. Hemoglobin is down to 6.9 from 7.5 and that is after a transfusion of one unit. No obvious bleeding. Wounds are serosanguineous. But he has been IV fluids all night. Mildly acidotic with pH of 7.3 BISHOP resolved. Electrolytes are normal. inflammatory markers downtrending Blood in urine cultures are negative to date. MRSA neg. Wound cultures will likely be obtained during surgery pending 01/05 We have wound cultures from 20 days ago that outline Gram-negative bacteria. We are treating to those. Objective: at times delirious; relates feeling hopeless. Vitals: reviewed; BP much improved. see above Lungs: Clear. Cardiac: S1S2. Neuro: paraplegic and nearly insensate to lower extremities. 01/04/25 large left open wound 7x7cm and 8-10cm deep; bone exposed 2nd wound proximal left buttock 3x4cm indurated/fluctuance noted deep to open wound Disposition/Potential discharge - Today I spent 50minutes seeing the patient, reviewing Expanse and EPIC notes/diagnostics, discussing the care plan with our care time that includes social work, PT/OT, pharmacy, RT, residential and documenting my impressions and plan in the medical record. Exam 2 Const: Vital Signs, click to edit/add: Vital Signs - 24 hr 01/05/25 12:00 01/05/25 12:15 01/05/25 12:16 Temperature 96.3 F L 97.0 F L 96.3 F L Pulse Rate 73 73 73 Pulse Rate [Left P ulse Oximeter] Respiratory Rate 18 18 18 Blood Pressure 114/55 L 108/45 L 114/55 L Blood Pressure [Le ft Arm] Pulse Oximetry 95 95 95 Oxygen Delivery Me thod Room Air Room Air Room Air 01/05/25 12:30 01/05/25 12:45 01/05/25 13:00 Temperature 98.2 F 98.2 F 97.6 F Pulse Rate 68 66 70 Pulse Rate [Left P ulse Oximeter] Respiratory Rate 18 18 18 Blood Pressure 113/55 L 106/45 L 107/43 L Blood Pressure [Le ft Arm] Pulse Oximetry 97 90 94 Oxygen Delivery Me thod Room Air Room Air Room Air 01/05/25 13:30 01/05/25 17:30 01/05/25 18:00 Temperature 97.6 F Pulse Rate 68 Pulse Rate [Left P ulse Oximeter] 74 77 Respiratory Rate 18 Blood Pressure 115/47 L Blood Pressure [Le ft Arm] 121/49 L 126/60 Pulse Oximetry 96 Oxygen Delivery Me thod Room Air 01/05/25 18:30 01/05/25 20:25 01/05/25 20:30 Temperature 96.5 F L 97.7 F Pulse Rate 79 70 Pulse Rate [Left P ulse Oximeter] 75 Respiratory Rate 14 20 18 Blood Pressure 94/76 117/74 Blood Pressure [Le ft Arm] 130/52 L Pulse Oximetry 98 99 98 Oxygen Delivery Me od Room Air 01/05/25 20:47 01/05/25 21:00 01/05/25 21:30 Temperature 97.7 F 97.5 F L Pulse Rate 84 80 78 Pulse Rate [Left P ulse Oximeter] Respiratory Rate 18 16 16 Blood Pressure 136/71 150/58 H 126/66 Blood Pressure [Le ft Arm] Pulse Oximetry 98 97 97 Oxygen Delivery Me thod Room Air Room Air Room Air 01/05/25 22:00 01/05/25 22:30 01/05/25 23:00 Temperature 97.8 F Pulse Rate 80 79 Pulse Rate [Left P ulse Oximeter] 76 Respiratory Rate 18 18 Blood Pressure 138/59 L 128/50 L Blood Pressure [Le ft Arm] Pulse Oximetry 98 98 Oxygen Delivery Me thod Room Air Room Air 01/05/25 23:02 01/06/25 00:00 01/06/25 01:00 Temperature 97.8 F 97.5 F L 97.7 F Pulse Rate 76 86 Pulse Rate [Left P ulse Oximeter] 76 Respiratory Rate 18 20 18 Blood Pressure 115/48 L 151/45 H Blood Pressure [Le ft Arm] 141/56 H Pulse Oximetry 97 97 96 Oxygen Delivery Me thod Room Air Room Air Room Air 01/06/25 02:06 01/06/25 07:23 Temperature 97.5 F L 97.5 F L Pulse Rate Pulse Rate [Left P ulse Oximeter] 77 80 Respiratory Rate 18 12 Blood Pressure Blood Pressure [Le ft Arm] 141/52 H 148/65 H Pulse Oximetry 94 95 Oxygen Delivery Me thod Room Air Room Air Labs Labs: Laboratory Results - last 24 hr 01/05/25 01/05/25 01/05/25 06:40 16:40 18:02 WBC 8.98 RBC 2.97 L Hgb 7.5 L* Hct 25.7 L MCV 87 MCH 25 L MCHC 29 L Plt Count 186 VBG pH 7.257 L VBG pCO2 48 VBG pO2 51.2 H VBG HCO3 21 Sodium 136 Potassium 4.9 Chloride 110 Carbon Dioxide 21 Anion Gap 5 L BUN 43 H Creatinine 1.6 H Estimated Creat Clear 43.78 Estimated GFR 45 Glucose 92 Calcium 8.4 Phosphorus 4.7 H C-Reactive Protein 11.5 H Albumin 2.7 L Procalcitonin 1.47 H Blood Type A Positive Antibody Screen NEGATIVE Crossmatch ([facility]) See Detail 01/06/25 05:54 WBC 5.83 RBC 2.68 L Hgb 6.9 L* Hct 23.5 L MCV 88 MCH 26 MCHC 29 L Plt Count 161 VBG pH VBG pCO2 VBG pO2 VBG HCO3 Sodium 136 Potassium 4.4 Chloride 111 Carbon Dioxide 19 L Anion Gap 6 L BUN 28 Creatinine 0.8 Estimated Creat Clear 70.06 Estimated GFR 92 Glucose 85 Calcium 8.1 L Phosphorus 2.8 C-Reactive Protein 5.7 H Albumin 2.2 L Procalcitonin Blood Type Antibody Screen Crossmatch ([facility])
[2025-01-06 08:19] LABS: HCO3 VBG 20 mmol/L (21-28); PCO2 VBG 40 mmHG (40-50); PO2 VBG 66.6 mmHG (25-47); pH VBG 7.303 (7.32-7.43)
[2025-01-06 08:29] LABS: Procalcitonin* 0.35 ng/mL (<0.50)
[2025-01-06] MEDS: polyethylene glycoL 3350 17 GM PACK PO (08:39)
[2025-01-06] MEDS: POTASSIUM CHLORIDE 10 MEQ CAPSULE ER PO ×2 (08:39→17:55)
[2025-01-06] MEDS: ACETAMINOPHEN 500 MG TABLET 1000 MG PO ×3 (08:40→20:36)
[2025-01-06] MEDS: FUROSEMIDE 40 MG TABLET PO (08:40)
[2025-01-06] MEDS: allopurinoL 100 MG TABLET PO (08:40)
[2025-01-06] MEDS: BACLOFEN 10 MG TABLET PO ×2 (08:42→20:36)
[2025-01-06] MEDS: SENNOSIDES/DOCUSATE TABLET 2 TAB PO (08:51)
[2025-01-06] MEDS: ONDANSETRON ODT 4 MG TAB PO (08:51)
[2025-01-06] MEDS: ACETIC ACID 1,000 ML IRR 0.25% 1 APPLIC IRRIGATION ×2 (09:24→20:37)
--- NOTE | 2025-01-06 10:45 | P.GSPN_ITS ---
Subjective Subjective Date Seen: 01/06/25 Interval history: Patient was confused overnight. Patient received transfusion yesterday and hemoglobin went down to 6.9. The dressing was not changed and no active bleeding was noted on ABD pads. Patient's labs have improved with WBC normalizi ng, creatinine 0.8, CRP decreased. Patient's albumin is 2.2. Exam Narrative: Exam Narrative: Back: Both dressings were removed from the left buttocks. The left decubitus ulcer dressing had minimal amount of bloody serosanguineous drainage. No purulence noted. The superior buttocks dressing had more bloody drainage on gauze. There was no active bleeding noted. The dressings were done with acetic acid. Const: Vital Signs, click to edit/add: Vital Signs - 24 hr 01/05/25 12:00 01/05/25 12:15 01/05/25 12:16 Temperature 96.3 F L 97.0 F L 96.3 F L Pulse Rate 73 73 73 Pulse Rate [Left P ulse Oximeter] Respiratory Rate 18 18 18 Blood Pressure 114/55 L 108/45 L 114/55 L Blood Pressure [Le ft Arm] Pulse Oximetry 95 95 95 [facility] Room Air Room Air 01/05/25 12:30 01/05/25 12:45 01/05/25 13:00 Temperature 98.2 F 98.2 F 97.6 F Pulse Rate 68 66 70 Pulse Rate [Left P ulse Oximeter] Respiratory Rate 18 18 18 Blood Pressure 113/55 L 106/45 L 107/43 L Blood Pressure [Le ft Arm] Pulse Oximetry 97 90 94 [facility] Room Air Room Air Room Air 01/05/25 13:30 01/05/25 17:30 01/05/25 18:00 Temperature 97.6 F Pulse Rate 68 Pulse Rate [Left P ulse Oximeter] 74 77 Respiratory Rate 18 Blood Pressure 115/47 L Blood Pressure [Le ft Arm] 121/49 L 126/60 Pulse Oximetry 96 [facility]xygen Delivery [facility] Room Air 01/05/25 18:30 01/05/25 20:25 01/05/25 20:30 Temperature 96.5 F L 97.7 F Pulse Rate 79 70 Pulse Rate [Left P ulse Oximeter] 75 Respiratory Rate 14 20 18 Blood Pressure 94/76 117/74 Blood Pressure [Le ft Arm] 130/52 L Pulse Oximetry 98 99 98 Oxygen Delivery Me thod Room Air 01/05/25 20:47 01/05/25 21:00 01/05/25 21:30 Temperature 97.7 F 97.5 F L Pulse Rate 84 80 78 Pulse Rate [Left P ulse Oximeter] Respiratory Rate 18 16 16 Blood Pressure 136/71 150/58 H 126/66 Blood Pressure [Le ft Arm] Pulse Oximetry 98 97 97 Oxygen Delivery Me thod Room Air Room Air Room Air 01/05/25 22:00 01/05/25 22:30 01/05/25 23:00 Temperature 97.8 F Pulse Rate 80 79 Pulse Rate [Left P ulse Oximeter] 76 Respiratory Rate 18 18 Blood Pressure 138/59 L 128/50 L Blood Pressure [Le ft Arm] Pulse Oximetry 98 98 Oxygen Delivery [facility] Room Air Room Air 01/05/25 23:02 01/06/25 00:00 01/06/25 01:00 Temperature 97.8 F 97.5 F L 97.7 F Pulse Rate 76 86 Pulse Rate [Left P ulse Oximeter] 76 Respiratory Rate 18 20 18 Blood Pressure 115/48 L 151/45 H Blood Pressure [Le ft Arm] 141/56 H Pulse Oximetry 97 97 96 Oxygen Delivery Me thod Room Air Room Air Room Air 01/06/25 02:06 01/06/25 07:00 01/06/25 07:23 Temperature 97.5 F L 97.5 F L Pulse Rate Pulse Rate [Left P ulse Oximeter] 77 80 Respiratory Rate 18 12 12 Blood Pressure Blood Pressure [Le ft Arm] 141/52 H 148/65 H Pulse Oximetry 94 95 Oxygen Delivery Me thod Room Air Room Air 01/06/25 10:24 01/06/25 10:34 Temperature 98 F 98 F Pulse Rate 92 92 Pulse Rate [Left P ulse Oximeter] Respiratory Rate 16 16 Blood Pressure 164/67 H 164/67 H Blood Pressure [Le ft Arm] Pulse Oximetry 97 97 Oxygen Delivery Me thod Room Air Progress Note:A&P Assessment and plan (1) Stage IV pressure ulcer of left buttock: Status: Acute Plan 75-year-old male paraplegic with chronic left stage IV decubitus ulcer and superior buttocks ulcer s/p debridement of both ulcers POD 1. Will minimize patient's pain medications to hopefully help with confusion. Dressing changes for now will be done with acetic acid. Patient has been refusing medications. I discussed with the nursing staff to try and give him Ensure to optimize nutrition.
[2025-01-06] MEDS: CARBOXYMETHYLCELLULOSE (REFRESH PLUS) TEARS 1 DROP EYE-BOTH ×2 (14:00→21:02)
--- NOTE | 2025-01-06 14:06 | PC.SOCIAL ---
Addendum entered by JEAN CLAUDE Sanchez 01/06/25 15:38: Discharge planning: drug abuse worker also sent updated notes to Iris via secure email per her request. Social work to follow-up as needed. Original Note: Discharge planning: drug abuse worker received a call from [employer] stating that the pt has a [facility] Triage Technician named Karrie Ortega RN and she can be reached at #[phone] if needed for assistance with discharge planning. drug abuse worker also connected with Iris Taylor RN Clinical Coordinator at [facility] who stated that the pt is on a bed hold with them and to connect with her when he is ready for discharge. Iris's number is #[phone] and her email is [email or web address]. Social work to follow-up as needed.
--- NOTE | 2025-01-06 14:51 | PC.NURSE ---
At beginning of shift, pt. was confused and refused meds. MD changed dressing; one of the wounds needed re-changing due to incontinent bowel movement. Pt. mentation improved throughout shift, and agreeable with meds. VS stable throughout transfusion. No adverse effects to first unit of PRBC transfusion. Curretly transfusing second unit of PRBC. T/R q2hr. RN updated daughter Malika regarding blood transfusion and answered questions. Pt. is consuming 50-75% of meals, and 100% protein shake.
[2025-01-06] MEDS: OXYCODONE 5 MG TABLET PO ×2 (17:34→21:02)
--- NOTE | 2025-01-06 18:17 | PC.NURSE ---
Shift Summary 15-19: Patient pleasant and cooperative. Blood transfusion done and at 1hr check temp was 99.1, checked again 15min later and was 100 with no other symptoms. Temp at baseline 98.5. MD updated with no new orders at this time. Blankets removed and temp decreased in room, repeat temp taken 30min later and was 98.4. Patient increased confusion following nap, similar to when he woke up this morning. Still having some confusion but easily redirected now. Pain managed with scheduled and PRN medication, see MAR. T&R q2H.
--- NOTE | 2025-01-06 20:03 | PC.NURSE ---
Updated Dr. James on B/Ps. See new orders.
[2025-01-06] MEDS: lisinopriL 10 MG TABLET PO (20:37)
[2025-01-06] MEDS: LATANOPROST 0.005% OPHTH 1 DROP EYE-BOTH (20:37)
--- NOTE | 2025-01-06 21:08 | W.PM.CROSSCO ---
Subjective Subjective Time Seen by Provider: 21:09 Date Seen: 01/06/25 Interval history: Patient reporting left eye irritation this evening. Exam shows no obvious eye trauma, normal extraocular movements, no foreign body under the lids. Staining with flouresein revealed a small abrasion just to the left of the mid cornea. Assessment and Plan Assessment and plan (1) Corneal abrasion: Problem comment: Erythromycin ointment Status: Acute Total Time Spent Total Time Spent: 20 min
[2025-01-06] MEDS: ERYTHROMYCIN OPHTH OINT 3.5 GM 1 APPLIC EYE-LEFT (21:51)
--- NOTE | 2025-01-06 22:51 | PC.NURSE ---
End of shift report [id number]: Pleasant and cooperative with cares, intermittent confusion noted. Pain to buttocks reported, patient reports minimal relief with current regimen. Patient also reporting pain to left eye, feels like it is gritty. No foreign object noted. Sclera to left eye red and small amount of yellow drainage noted. MD updated on pain and eye redness, new orders received. Repositioned Q2H from side to side.
[2025-01-07 03:00] VITALS: BP 186/109; PULSE 91; RESP 18; TEMP 36.4; O2SAT 92
[2025-01-07] MEDS: MEROPENEM 1 GM in 0.9 % SODIUM CHLORIDE Mini-bag 100 ML IVPB ×3 (04:18→20:28)
[2025-01-07] MEDS: OXYCODONE 5 MG TABLET PO ×2 (04:46→21:55)
[2025-01-07] MEDS: LACTATED RINGERS 1000 ML 1,000 ML 125 ML IV ×3 (04:48→21:58)
[2025-01-07] MEDS: 0.9 % SODIUM CHLORIDE 250 ml IV (04:49)
--- NOTE | 2025-01-07 05:06 | PC.NURSE ---
Shift note: Patient has been confuse since taking over at 2300. He refused 2300 vital signs checked. Reported feeling warm and removed the blanket and gown. At 0330, nurse found out patient has removed the PICC line completely. No bleeding. New peripheral line inserted to continue the IV abx and fluid administration. He is more alert and oriented this morning. No fever recorded. Vitally stable.
[2025-01-07 06:57] LABS: Hematocrit 36.2 % (37.0-53.0); Hemoglobin* 11.2 gm/dL (13.5-17.5); Mean Corpuscular HGB Conc 31 gm/dL (32-36); Mean Corpuscular Hemoglobin 26 pg (26-34); Mean Corpuscular Volume 84 fL (80-100); Platelet Count* 159 K/uL (140-440); Red Blood Count 4.31 m/uL (4.30-5.90); White Blood Count* 6.28 K/uL (4.50-11.00)
[2025-01-07 07:00] LABS: Slide Review Reflex No
[2025-01-07 07:06] LABS: Albumin* 2.9 g/dL (3.3-5.0); Chloride* 112 mmol/L (96-114); Potassium* 3.9 mmol/L (3.6-5.1); Sodium* 142 mmol/L (135-149)
[2025-01-07 07:09] LABS: Blood Urea Nitrogen* 20 mg/dL (7-30); Creatinine* 0.8 mg/dL (0.5-1.5); Est. Creatinine Clearance* 70.06; Estimated Glomerular Filt Rate 92 ml/min
[2025-01-07 07:10] LABS: Anion Gap 5 mEq/L (7-15); Carbon Dioxide* 25 mmol/L (20-32); Glucose* 174 mg/dL (60-115); Phosphorus* 2.2 mg/dL (2.5-4.5)
[2025-01-07 07:13] LABS: C Reactive Protein* 4.9 mg/dL (0.5-1.0)
[2025-01-07] MEDS: OMEPRAZOLE 20 MG CAPSULE DR 40 MG PO ×2 (07:31→16:26)
[2025-01-07 07:35] VITALS: BP 203/92; PULSE 90; RESP 14; TEMP 36.1; O2SAT 95
--- NOTE | 2025-01-07 08:02 | PM.IMPN1 ---
Assessment and Plan Assessment and plan (1) Sepsis: Problem comment: - 01/07 - significant improvement noted. - 01/06 - improving. WBC normal. inflammatory markers improved. BISHOP resolved. still delirious and at times hopeless. increased meropenem to q8 h -01/05 -Improved. afebrile. HR Less than 75. BP 115/47. Lactate normal. CRP down trending. UOP improved. 01/04 -HR 96-104. afebrile. Lactate still >2. WBC up to 19.45. BC NTD. UC NTD. CRP uptrending. BP low normal. giving fluid bolus and trending labs. -on broad spectrum abx (dapto and zosyn) upon admission. Given BISHOP and hx of ESBL - will switch to meropenem monotherapy. -BISHOP noted today, Creat up to 1.6 (further increase to 2.0) with GFR down from 90's to 30's -bolus ordered and ongoing IVF ordered. -holding antihypertensive's and metformin. Status: Acute (2) Stage IV pressure ulcer of left buttock: Problem comment: -see osteomyelitis notes Status: Acute (3) Osteomyelitis: Problem comment: - 01/03/25 CT abd/pelvis: Significantly increased size of a large left posterior gluteal decubitus ulcer, with open wound extending to the level of the left ischial tuberosity where there is cortical destruction compatible with osteomyelitis. Adjacent inflammatory changes are present. - Admit to hospital. Surgical consultation requested, Dr. Randall will see tomorrow AM. NPO after MN in case she warrants OR debridement. BC obtained. Empiric pip/tazo and daptomycin (allergy to vancomycin). Off-loading efforts. Will need on-going wound care support. Consider hyperbaric oxygen therapy. -01/04 - switched to meropenem, renally dosed, monotherapy. Gen surg is planning debridement on 01/05. added air mattress. giving IVF support. -01/05 - surgical debridement. continue with IV meropenem. awaiting bone and tissue cultures. MRSA swab negative. BCNTD. Status: Acute (4) Multiple sclerosis: Problem comment: Bed-bound Status: Acute (5) Anemia, chronic disease: Problem comment: -worsened by dilution/bolus and now ABLA from debridement -multifactorial -no GI bleed suspected. Eliquis is on hold. 01/05 -1 unit 01/06 - 2 units transfused 01/07 - hgb stable. starting lovenox. Status: Acute (6) Corneal abrasion: Problem comment: Erythromycin ointment Status: Acute (7) Diabetes mellitus: Problem comment: Hemoglobin A1c was 7.6 on 11/16/2024. On metformin (on hold). SSI ACHS. Status: Acute Subjective Date Seen: 01/07/25 Interval history: Daily Progress Note - Hospital Medicine Day #: 4 Post OP Day #: 2 1. Excisional debridement of the left superior buttocks ulcer 9 x 6 x 2.5 cm deep. 2. Excisional debridement of the left ischial decubitus ulcer 7.5 x 4 x 5 cm deep. CC: weakness, AMS, foul smelling wounds Pre-op diagnosis: Stage IV left decubitus ulcer with osteomyelitis and left superior buttocks ulcer down to the joint capsule. 24 HOUR UPDATE: So much better this morning. alert, calm, eating eggs/haines. Agreeable. Surgery 01/05, Krystle Randall PICC line placed 01/04 - inadvertently pulled by patient on 01/07. BISHOP noted; likely from the daptomycin and volume contraction from sepsis. IVF ongoing. not hypotensive. RESOLVED Hgb this am is 11.2; s/p 3 units PRBCs. dory 6.9. monotherapy with meropenem 1 gram q 12 will be transitioned back to q8h awaiting cultures to call ID for choice/length of abx therapy plan to d/c to 3L later this week. starting lovenox today; efraín on discharge. RN: ?Patient has been confuse since taking over at 2300. He refused 2300 vital signs checked. Reported feeling warm and removed the blanket and gown. At 0330, nurse found out patient has removed the PICC line completely. No bleeding. New peripheral line inserted to continue the IV abx and fluid administration. He is more alert and oriented this morning. No fever recorded. Vitally stable. Notable Labs, Micro, Rads, Interventions: Blood pressures have been stable. BP has nicely rebounded after being soft for a few days. 203/90 this am. Pulse in the 80s Respiratory rate 18 to 20 Pulse ox 97% on room air Blood glucose essentially under 200 low 127. White count is now normal. Hemoglobin is down to 6.9 from 7.5 and that is after a transfusion of one unit. No obvious bleeding. Wounds are serosanguineous. But he has been IV fluids all night. Mildly acidotic with pH of 7.3 BISHOP resolved. Electrolytes are normal. inflammatory markers downtrending Blood in urine cultures are negative to date. MRSA neg. Wound cultures from surgical debridement pending (01/05) We have wound cultures from 20 days ago that outline Gram-negative bacteria. We are treating to those. Objective: at times delirious; relates feeling hopeless. Vitals: reviewed; BP much improved. see above Lungs: Clear. Cardiac: S1S2. Neuro: paraplegic and nearly insensate to lower extremities. Disposition/Potential discharge - 3L - end of the week - consider adding palliative care Today I spent 50minutes seeing the patient, reviewing Expanse and EPIC notes/diagnostics, discussing the care plan with our care time that includes social work, PT/OT, pharmacy, RT, [facility] and documenting my impressions and plan in the medical record. Exam Const: Vital Signs, click to edit/add: Vital Signs - 24 hr 01/06/25 10:24 01/06/25 10:34 01/06/25 10:49 Temperature 98 F 98 F 98.1 F Pulse Rate 92 92 90 Pulse Rate [Left P ulse Oximeter] Respiratory Rate 16 16 16 Blood Pressure 164/67 H 164/67 H 153/100 H Blood Pressure [Le ft Arm] Pulse Oximetry 97 97 97 Oxygen Delivery Me thod Room Air Room Air 01/06/25 10:50 01/06/25 11:00 01/06/25 11:26 Temperature 98.1 F 98.2 F Pulse Rate 84 88 Pulse Rate [Left P ulse Oximeter] 90 Respiratory Rate 16 16 Blood Pressure 159/57 H 149/66 H Blood Pressure [Le ft Arm] 159/57 H Pulse Oximetry 97 96 Oxygen Delivery Me thod Room Air Room Air 01/06/25 11:55 01/06/25 12:35 01/06/25 13:43 Temperature 97.8 F 98.8 F 98.3 F Pulse Rate 89 85 93 Pulse Rate [Left P ulse Oximeter] Respiratory Rate 12 14 14 Blood Pressure 163/76 H 188/86 H 174/77 H Blood Pressure [Le ft Arm] Pulse Oximetry 96 96 94 Oxygen Delivery Me thod Room Air Room Air Room Air 01/06/25 14:02 01/06/25 14:32 01/06/25 15:06 Temperature 98.8 F 98.5 F 98.5 F Pulse Rate 86 88 90 Pulse Rate [Left P ulse Oximeter] Respiratory Rate 16 12 14 Blood Pressure 176/76 H 175/68 H 177/79 H Blood Pressure [Le ft Arm] Pulse Oximetry 95 95 94 Oxygen Delivery Me thod Room Air Room Air Room Air 01/06/25 15:24 01/06/25 15:32 01/06/25 16:10 Temperature 98.5 F 97.8 F 98.7 F Pulse Rate 82 80 Pulse Rate [Left P ulse Oximeter] 84 Respiratory Rate 14 14 12 Blood Pressure 172/62 H 166/69 H Blood Pressure [Le ft Arm] 177/79 H Pulse Oximetry 94 95 94 Oxygen Delivery Me thod Room Air Room Air Room Air 01/06/25 16:39 01/06/25 19:00 01/06/25 23:00 Temperature 99.1 F 98.8 F Pulse Rate 93 Pulse Rate [Left P ulse Oximeter] 98 Respiratory Rate 14 18 18 Blood Pressure 177/69 H Blood Pressure [Le ft Arm] 187/95 H Pulse Oximetry 94 95 Oxygen Delivery Me thod Room Air Room Air 01/07/25 03:00 01/07/25 07:35 Temperature 97.6 F 96.9 F L Pulse Rate Pulse Rate [Left P ulse Oximeter] 91 90 Respiratory Rate 18 14 Blood Pressure Blood Pressure [Le ft Arm] 186/109 H 203/92 H Pulse Oximetry 92 95 Oxygen Delivery Me thod Room Air Room Air Labs Labs: Laboratory Results - last 24 hr 01/05/25 01/06/25 01/06/25 18:02 05:54 08:05 WBC RBC Hgb Hct MCV MCH MCHC Plt Count VBG pH 7.303 L VBG pCO2 40 VBG pO2 66.6 H VBG HCO3 20 L Sodium Potassium Chloride Carbon Dioxide Anion Gap BUN Creatinine Estimated Creat Clear Estimated GFR Glucose Calcium Phosphorus C-Reactive Protein Albumin Procalcitonin 0.35 Blood Type A Positive Antibody Screen NEGATIVE Crossmatch ([facility]) See Detail 01/07/25 06:40 WBC 6.28 RBC 4.31 Hgb 11.2 L Hct 36.2 L MCV 84 MCH 26 MCHC 31 L Plt Count 159 VBG pH VBG pCO2 VBG pO2 VBG HCO3 Sodium 142 Potassium 3.9 Chloride 112 Carbon Dioxide 25 Anion Gap 5 L BUN 20 Creatinine 0.8 Estimated Creat Clear 70.06 Estimated GFR 92 Glucose 174 H Calcium 9.0 Phosphorus 2.2 L C-Reactive Protein 4.9 H Albumin 2.9 L Procalcitonin Blood Type Antibody Screen Crossmatch ([facility])
[2025-01-07] MEDS: allopurinoL 100 MG TABLET PO (09:34)
[2025-01-07] MEDS: SENNOSIDES/DOCUSATE TABLET 2 TAB PO (09:34)
[2025-01-07] MEDS: FUROSEMIDE 40 MG TABLET PO (09:34)
[2025-01-07] MEDS: BACLOFEN 10 MG TABLET PO ×2 (09:34→20:29)
[2025-01-07] MEDS: lisinopriL 10 MG TABLET PO (09:35)
[2025-01-07] MEDS: METOPROLOL SUCCINATE (XL) 100 MG TAB PO (09:35)
[2025-01-07] MEDS: lisinopriL 20 MG TABLET 40 MG PO (09:35)
[2025-01-07] MEDS: ACETAMINOPHEN 500 MG TABLET 1000 MG PO ×3 (09:35→20:29)
[2025-01-07] MEDS: ACETIC ACID 1,000 ML IRR 0.25% 1 APPLIC IRRIGATION ×2 (09:36→21:29)
[2025-01-07] MEDS: polyethylene glycoL 3350 17 GM PACK PO (09:36)
[2025-01-07] MEDS: INSULIN ASPART 100 UNIT/ML SUBCUT ×2 (09:38→21:01)
[2025-01-07] MEDS: POTASSIUM CHLORIDE 10 MEQ CAPSULE ER PO ×2 (09:38→17:31)
--- NOTE | 2025-01-07 10:09 | PM.GSPN ---
Subjective Subjective Date Seen: 01/07/25 Interval history: The patient with confusion overnight. His PICC line was pulled out. He is alert and oriented this morning. He reports pain at his wound sites, but thinks that this is improved compared to yesterday. No fevers overnight. Exam Narrative: Exam Narrative: Back: Both dressings were removed from the left buttocks. The left ischial tuberosity decubitus ulcer with clean wound bed. No necrotic tissue or purulence noted. Some surrounding erythema of the periwound likely secondary to pressure.. No purulence noted. The superior buttock wound with some moeller appearing fat on the superior aspect, no obviously necrotic areas. No purulence or foul odor. No surrounding erythema or induration. There was no active bleeding noted. The dressings were done with acetic acid. Const: Vital Signs, click to edit/add: Vital Signs - 24 hr 01/06/25 10:24 01/06/25 10:34 01/06/25 10:49 Temperature 98 F 98 F 98.1 F Pulse Rate 92 92 90 Pulse Rate [Left P ulse Oximeter] Respiratory Rate 16 16 16 Blood Pressure 164/67 H 164/67 H 153/100 H Blood Pressure [Le ft Arm] Pulse Oximetry 97 97 97 Oxygen Delivery Me thod Room Air Room Air 01/06/25 10:50 01/06/25 11:00 01/06/25 11:26 Temperature 98.1 F 98.2 F Pulse Rate 84 88 Pulse Rate [Left P ulse Oximeter] 90 Respiratory Rate 16 16 Blood Pressure 159/57 H 149/66 H Blood Pressure [Le ft Arm] 159/57 H Pulse Oximetry 97 96 [facility] Room Air 01/06/25 11:55 01/06/25 12:35 01/06/25 13:43 Temperature 97.8 F 98.8 F 98.3 F Pulse Rate 89 85 93 Pulse Rate [Left P ulse Oximeter] Respiratory Rate 12 14 14 Blood Pressure 163/76 H 188/86 H 174/77 H Blood Pressure [Le ft Arm] Pulse Oximetry 96 96 94 Oxygen Delivery Nj thod Room Air Room Air Room Air 01/06/25 14:02 01/06/25 14:32 01/06/25 15:06 Temperature 98.8 F 98.5 F 98.5 F Pulse Rate 86 88 90 Pulse Rate [Left P ulse Oximeter] Respiratory Rate 16 12 14 Blood Pressure 176/76 H 175/68 H 177/79 H Blood Pressure [Le ft Arm] Pulse Oximetry 95 95 94 Oxygen Delivery Me thod Room Air Room Air Room Air 01/06/25 15:24 01/06/25 15:32 01/06/25 16:10 Temperature 98.5 F 97.8 F 98.7 F Pulse Rate 82 80 Pulse Rate [Left P ulse Oximeter] 84 Respiratory Rate 14 14 12 Blood Pressure 172/62 H 166/69 H Blood Pressure [Le ft Arm] 177/79 H Pulse Oximetry 94 95 94 Oxygen Delivery Nj thod Room Air Room Air Room Air 01/06/25 16:39 01/06/25 19:00 01/06/25 23:00 Temperature 99.1 F 98.8 F Pulse Rate 93 Pulse Rate [Left P ulse Oximeter] 98 Respiratory Rate 14 18 18 Blood Pressure 177/69 H Blood Pressure [Le ft Arm] 187/95 H Pulse Oximetry 94 95 Oxygen Delivery Nj thod Room Air Room Air 01/07/25 03:00 01/07/25 07:35 Temperature 97.6 F 96.9 F L Pulse Rate Pulse Rate [Left P ulse Oximeter] 91 90 Respiratory Rate 18 14 Blood Pressure Blood Pressure [Le ft Arm] 186/109 H 203/92 H Pulse Oximetry 92 95 Oxygen Delivery Nj thod Room Air Room Air Labs/Imaging Labs Labs: Patient received 2 units PRBC yesterday hemoglobin 11.2 this morning. No leukocytosis, CRP is trending down at 4.9 this morning. Imaging Imaging: No new imaging. Progress Note:A&P Assessment and plan (1) Stage IV pressure ulcer of left buttock: Status: Acute Plan 75-year-old male paraplegic with chronic left stage IV left ischial tuberosity decubitus ulcer and superior buttocks ulcer s/p debridement of both POD 2. Wound bed is clean in appearance at the left ischial tuberosity. There is some surrounding erythema likely secondary to pressure, recommend continuing to offload as much as possible. The superior buttock wound has some moeller fat on the superior aspect of the wound bed. I think this would continue to benefit from wet to dry dressing changes to help assist with debriding this area. No current undrained pockets of fluid, purulence or further operative debridement needed at this time. Recommend patient continue with b.i.d. wet-to-dry dressings for both ulcers, with dressings soaked in acetic acid. Patient is okay to restart anticoagulation, would recommend therapeutic Lovenox while he remains inpatient.
[2025-01-07 11:00] VITALS: BP 184/92; PULSE 80; RESP 14; TEMP 36.2; O2SAT 96
--- NOTE | 2025-01-07 14:15 | PC.SOCIAL ---
Discharge planning: supervisor park workers left a message with the pt's daughter, Malika #[phone], to update her about the pt having two wound vacs placed. Dr. Tabares will also call Malika tomorrow to talk to her about the wound vacs being placed and the pt's chronic wound management going forward. supervisor park workers has also been in contact with Bekah Contrerasnikki at [facility] to coordinate ordering wound vacs for him at [facility] when he returns. Social work to follow-up as needed.
--- NOTE | 2025-01-07 14:24 | PC.SOCIAL ---
Addendum entered by JEAN CLAUDE Sanchez 01/07/25 15:56: Discharge planning: Bekah with [facility] said that she can order the wound vacs for the pt. She just needs the orders faxed or emailed to her. abatement worker let the charge nurse on duty this evening know and she will inform the provider on duty. This may have to be followed-up on by Rehabilitation Director on Monday if this worker does not receive the orders tonight. Here is Bekah's contact information: Bekah Taylor RN, Clinical Coordinator [address] [address] DD: [phone] E:[email or web address] Original Note: Discharge planning: abatement worker left a message with the pt's daughter, Malika #[phone], to update her about the pt having two wound vacs placed. Dr. Tabares will also call Malika tomorrow to talk to her about the wound vacs being placed and the pt's chronic wound care management going forward. abatement worker has also been in contact with Bekah Taylor at [facility] to coordinate ordering wound vacs for the pt at [facility] when he returns. Social work to follow-up as needed.
[2025-01-07 14:35] VITALS: BP 188/96; PULSE 85; RESP 14; TEMP 36.4; O2SAT 95
--- NOTE | 2025-01-07 16:31 | PC.NURSE ---
Shift Summary: Patient pleasant and cooperative, mentation improved today. Vitals stable and WNL. Pain managed with repositioning and scheduled medication, denied need for PRN oxycodone. Taking medication with pudding, able to take some pills whole with water. Denies nausea or SOB. Appetite improved, supplement given with meals.
[2025-01-07 20:10] VITALS: BP 202/94; PULSE 78; RESP 16; TEMP 36.8; O2SAT 94
[2025-01-07] MEDS: ENOXAPARIN 40 MG/0.4 ML INJ SUBCUT (20:28)
[2025-01-07] MEDS: LATANOPROST 0.005% OPHTH 1 DROP EYE-BOTH (20:41)
[2025-01-07] MEDS: SODIUM CHLORIDE 0.9 % (FLUSH) 10 ML SYRINGE 5 ML IVF (21:55)
[2025-01-07 22:50] VITALS: BP 185/77; PULSE 82; RESP 18; TEMP 36.6; O2SAT 95
[2025-01-08] MEDS: OXYCODONE 5 MG TABLET PO (02:42)
[2025-01-08 02:45] VITALS: BP 185/76; PULSE 80; RESP 16; TEMP 36.1; O2SAT 94
[2025-01-08] MEDS: MEROPENEM 1 GM in 0.9 % SODIUM CHLORIDE Mini-bag 100 ML IVPB (04:36)
[2025-01-08] MEDS: LACTATED RINGERS 1000 ML 1,000 ML 125 ML IV (05:58)
[2025-01-08] MEDS: OMEPRAZOLE 20 MG CAPSULE DR 40 MG PO ×2 (05:59→16:39)
[2025-01-08 06:41] LABS: Hematocrit 36.3 % (37.0-53.0); Hemoglobin* 11.1 gm/dL (13.5-17.5); Mean Corpuscular HGB Conc 31 gm/dL (32-36); Mean Corpuscular Hemoglobin 26 pg (26-34); Mean Corpuscular Volume 84 fL (80-100); Platelet Count* 142 K/uL (140-440); Red Blood Count 4.32 m/uL (4.30-5.90); White Blood Count* 8.37 K/uL (4.50-11.00)
[2025-01-08 06:48] LABS: Slide Review Reflex No
[2025-01-08 06:52] LABS: Albumin* 2.8 g/dL (3.3-5.0); Chloride* 110 mmol/L (96-114); Sodium* 139 mmol/L (135-149)
[2025-01-08 06:53] LABS: Potassium* 3.8 mmol/L (3.6-5.1)
[2025-01-08 06:55] LABS: Anion Gap 3 mEq/L (7-15); Blood Urea Nitrogen* 19 mg/dL (7-30); Carbon Dioxide* 26 mmol/L (20-32); Creatinine* 0.6 mg/dL (0.5-1.5); Est. Creatinine Clearance* 70.06; Estimated Glomerular Filt Rate 101 ml/min
[2025-01-08 06:56] LABS: Calcium* 8.8 mg/dL (8.4-10.6); Glucose* 152 mg/dL (60-115)
--- NOTE | 2025-01-08 07:16 | PC.NURSE ---
Patient was alert and oriented and vitally stable upon initial assessment. Hypertensive. Difficult to hear lower lobes of lungs from his front. No shortness of breath. Saturating well. Unable to move himself in bed. Q2 turns while awake. Skin appears to be at risk of damage from pressure from his gallbladder drain. Repositioned, continuing to monitor and I will alert oncoming staff. Coccyx wound noted on record but not observed. The two pressure ulcers are pink in appearance with some white tissue protruding. Serosanguinous fluid produced from both. The dressings are not completely saturated but they are absorbing a good amount of fluid. Both are very deep. The higher one with tunnelling. Incontinent of stool. Indwelling catheter in place producing moderate amounts of pale-yellow urine. Gallbladder drain producing a tick orange to brown colored fluid. Legs are thin compared to upper limbs. Compression stockings in place. Altered thinking noted in-line with MS diagnosis. The patient requested to take their evening pills swallowed rather than crushed. I monitored the patient as he swallowed water using a straw and observed no difficulty with his swallowing, no cough, no sign of fluid entering the lungs, and no other sign it would be unsafe for him to swallow them whole. I gave the patient one pill at a time and provided a thick, protein shake beverage to use while swallowing. No problems observed. 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 Stocking removed for an hour per order. No concerns overnight.
[2025-01-08 07:53] VITALS: BP 189/81; PULSE 77; RESP 18; TEMP 36.6; O2SAT 95
--- NOTE | 2025-01-08 08:07 | P.IMPN_ITS ---
Assessment and Plan Assessment and plan (1) Stage IV pressure ulcer of left buttock: Problem comment: -two open large wounds on left buttock -healing assessed after 01/05 debridement by Prakash in the OR. side ellison healthy showing granulation tissue. base of wounds (exposed bone and or joint ca psule) grayish in color and much less healthy. -considering at least one wound vac to the superior wound (benefit/risk to closing over the osteo d/w with general surgery) -recommend to [place] a diverting loop ostomy to keep feces out of the wound Status: Acute (2) Osteomyelitis: Problem comment: - 01/03/25 CT abd/pelvis: Significantly increased size of a large left posterior gluteal decubitus ulcer, with open wound extending to the level of the left ischial tuberosity where there is cortical destruction compatible with osteomyelitis. Adjacent inflammatory changes are present. - Admit to hospital. Surgical consultation requested, Dr. Randall will see tomorrow AM. NPO after MN in case she warrants OR debridement. BC obtained. Empiric pip/tazo and daptomycin (allergy to vancomycin). Off-loading efforts. Will need on-going wound care support. Consider hyperbaric oxygen therapy. -01/04 - switched to meropenem, renally dosed, monotherapy. Gen surg is planning debridement on 01/05. added air mattress. giving IVF support. -01/05 - surgical debridement. continue with IV meropenem. -01/08 - initial cultures back/reviewed; proteus and gram +. ESBL neg. MRSA swab negative. BCNTD. Bactrim DS bid started. d/c meropenem. Status: Acute (3) Sepsis: Problem comment: -01/04 -HR 96-104. afebrile. Lactate still >2. WBC up to 19.45. BC NTD. UC NTD. CRP uptrending. BP low normal. giving fluid bolus and trending labs on broad spectrum abx (dapto and zosyn) upon admission. Given BISHOP and hx of ESBL - will switch to meropenem monotherapy. BISHOP noted today, Creat up to 1.6 (further increase to 2.0) with GFR down from 90's to 30's. bolus ordered and ongoing IVF ordered. holding antihypertensive's and metformin. - 01/05 -Improved. afebrile. HR Less than 75. BP 115/47. Lactate normal. CRP down trending. UOP improved. - 01/06 - improving. WBC normal. inflammatory markers improved. BISHOP resolved. still delirious and at times hopeless. increased meropenem to q8 h - 01/07 - significant improvement noted. Status: Acute (4) History of insertion of cholecystostomy tube: Problem comment: - July 2024 at [facility]. - stable/decompressed gallbladder on CT at admission - unclear plan about cholecystectomy verses long-term use of cholecystostomy tube - Eliquis until January 2025 and [place] is waiting until this 6 mo tx for PE is complete. Catheter exchange every 3 months due in January 2025 at [facility] Status: Deleted (5) Anemia, chronic disease: Problem comment: -worsened by dilution/bolus and now ABLA from debridement -multifactorial -no GI bleed suspected. Eliquis is on hold. 01/05 -1 unit 01/06 - 2 units transfused 01/07 - hgb stable. starting lovenox. 01/08 - restart eliquis Status: Acute (6) Corneal abrasion: Problem comment: Erythromycin ointment Status: Acute (7) Multiple sclerosis: Problem comment: Bed-bound Status: Acute (8) Diabetes mellitus: Problem comment: Hemoglobin A1c was 7.6 on 11/16/2024. On metformin (on hold). SSI ACHS. Status: Acute (9) Paraplegia: Problem comment: -due to MS Status: Acute Subjective Date Seen: 01/08/25 Interval history: Daily Progress Note - Hospital Medicine Day #: 5 Post OP Day #: 3 1. Excisional debridement of the left superior buttocks ulcer 9 x 6 x 2.5 cm deep. 2. Excisional debridement of the left ischial decubitus ulcer 7.5 x 4 x 5 cm deep. CC: weakness, AMS, foul smelling wounds Pre-op diagnosis: Stage IV left decubitus ulcer with osteomyelitis and left superior buttocks ulcer down to the joint capsule. 24 HOUR UPDATE: Continues to improve. eating, no fever, hypertensive but otherwise delirium has resolved. Surgery 01/05, Krystle Randall PICC line placed 01/04 - inadvertently pulled by patient on 01/07. BISHOP noted; likely from the daptomycin and volume contraction from sepsis. IVF ongoing. not hypotensive. RESOLVED Hgb this am is 11.1; s/p 3 units PRBCs. dory 6.9. monotherapy with meropenem d/c 01/08. Bactrim DS BID started01/08 prelim cultures back on buttock wounds: proteus and gram + (nasal neg mrsa) eliquis restarted plan to d/c to 3L later this week. RN: ?No concerns overnight. Notable Labs, Micro, Rads, Interventions: Blood pressures have been stable. BP has nicely rebounded after being soft for a few days. 190's/90's Pulse in the 80s Respiratory rate 18 to 20 Pulse ox 97% on room air Blood glucose essentially under 200 low 127. White count is now normal. hemoglobin as rebounded after transfusion and is >11 Mildly acidotic with pH of 7.3 BISHOP resolved. Electrolytes are normal. inflammatory markers downtrending Blood in urine cultures are negative to date. MRSA neg. Wound cultures from surgical debridement prelim proteus and gram +. Objective: awake, alert. interactive. Vitals: reviewed; BP much improved. see above Lungs: Clear. Cardiac: S1S2. Neuro: paraplegic and nearly insensate to lower extremities. Disposition/Potential discharge - 3L - end of the week Today I spent 50minutes seeing the patient, reviewing Expanse and EPIC notes/diagnostics, discussing the care plan with our care time that includes social work, PT/OT, pharmacy, RT, correction and documenting my impressions and plan in the medical record. Exam Const: Vital Signs, click to edit/add: Vital Signs - 24 hr 01/07/25 11:00 01/07/25 14:35 01/07/25 20:10 Temperature 97.2 F L 97.5 F L 98.3 F Pulse Rate [Left P ulse Oximeter] 80 85 Pulse Rate [Right Pulse Oximeter] 78 Respiratory Rate 14 14 16 Blood Pressure [Le ft Arm] 184/92 H 188/96 H 202/94 H Pulse Oximetry 96 95 94 Oxygen Delivery Me thod Room Air Room Air Room Air 01/07/25 22:50 01/08/25 02:45 01/08/25 07:53 Temperature 97.8 F 96.9 F L 97.9 F Pulse Rate [Left P ulse Oximeter] Pulse Rate [Right Pulse Oximeter] 82 80 77 Respiratory Rate 18 16 18 Blood Pressure [Le ft Arm] 185/77 H 185/76 H 189/81 H Pulse Oximetry 95 94 95 Oxygen Delivery Me thod Room Air Room Air Room Air Labs Labs: Laboratory Results - last 24 hr 01/08/25 06:20 WBC 8.37 RBC 4.32 Hgb 11.1 L Hct 36.3 L MCV 84 MCH 26 MCHC 31 L Plt Count 142 Sodium 139 Potassium 3.8 Chloride 110 Carbon Dioxide 26 Anion Gap 3 L BUN 19 Creatinine 0.6 Estimated Creat Clear 70.06 Estimated GFR 101 Glucose 152 H Calcium 8.8 Phosphorus 2.0 L Albumin 2.8 L
[2025-01-08] MEDS: polyethylene glycoL 3350 17 GM PACK PO (08:58)
[2025-01-08] MEDS: lisinopriL 20 MG TABLET 40 MG PO (08:59)
[2025-01-08] MEDS: SENNOSIDES/DOCUSATE TABLET 2 TAB PO (08:59)
[2025-01-08] MEDS: FUROSEMIDE 40 MG TABLET PO (08:59)
[2025-01-08] MEDS: ACETAMINOPHEN 500 MG TABLET 1000 MG PO ×3 (08:59→20:51)
[2025-01-08] MEDS: BACLOFEN 10 MG TABLET PO ×2 (08:59→20:51)
[2025-01-08] MEDS: SULFA/TRIMETHOPRIM 800/160 1 TAB PO ×2 (08:59→20:52)
[2025-01-08] MEDS: CALCIUM CARBONATE 500 MG CHEW PO ×2 (08:59→20:51)
[2025-01-08] MEDS: allopurinoL 100 MG TABLET PO (08:59)
[2025-01-08] MEDS: FERROUS SULFATE 325 MG TABLET PO (09:00)
[2025-01-08] MEDS: SODIUM CHLORIDE 0.9 % (FLUSH) 10 ML SYRINGE 5 ML IVF ×2 (09:00→20:53)
[2025-01-08] MEDS: METOPROLOL SUCCINATE (XL) 100 MG TAB PO (09:00)
[2025-01-08] MEDS: APIXABAN 5 MG TABLET PO ×2 (09:00→20:53)
[2025-01-08] MEDS: POTASSIUM CHLORIDE 10 MEQ CAPSULE ER PO ×2 (09:00→18:10)
[2025-01-08] MEDS: ACETIC ACID 1,000 ML IRR 0.25% 1 APPLIC IRRIGATION ×2 (09:01→20:56)
[2025-01-08 10:53] VITALS: BP 196/94; PULSE 78; RESP 16; TEMP 36.8; O2SAT 95
--- NOTE | 2025-01-08 12:24 | PM.GSPN ---
Subjective Subjective Date Seen: 01/08/25 Interval history: Patient is improving. His confusion has improved. His pain is controlled with Tylenol. His hemoglobin is stable at 11. WBC remains normal. He is increasing his p.o. intake. Exam Narrative: Exam Narrative: Back: Superior decubitus ulcer wound was examined. No active bleeding was noted and the dressing is with serosanguineous fluid. The base of the wound has some white yellow appearing slough over the joint capsule which is probably ligamentous tissue. There is no necrotic tissue noted. No purulence noted. The inferior decubitus ulcer wound the base of the wound with the area of osteomyelitis has surrounding white in appearance slough that is most likely the joint capsule tissue. There is no necrotic tissue, there is no foul smell. The ellison of the wound have great granulation tissue. Both wounds were repacked with moist Kerlix roll with acetic acid. Const: Vital Signs, click to edit/add: Vital Signs - 24 hr 01/07/25 14:35 01/07/25 20:10 01/07/25 22:50 Temperature 97.5 F L 98.3 F 97.8 F Pulse Rate [Left P ulse Oximeter] 85 Pulse Rate [Right Pulse Oximeter] 78 82 Respiratory Rate 14 16 18 Blood Pressure [Le ft Arm] 188/96 H 202/94 H 185/77 H Pulse Oximetry 95 94 95 Oxygen Delivery Me thod Room Air Room Air Room Air 01/08/25 02:45 01/08/25 07:53 01/08/25 10:53 Temperature 96.9 F L 97.9 F 98.3 F Pulse Rate [Left P ulse Oximeter] Pulse Rate [Right Pulse Oximeter] 80 77 78 Respiratory Rate 16 18 16 Blood Pressure [Le ft Arm] 185/76 H 189/81 H 196/94 H Pulse Oximetry 94 95 95 Oxygen Delivery Me thod Room Air Room Air Room Air Progress Note:A&P Assessment and plan (1) Stage IV pressure ulcer of left buttock: Status: Acute Plan 75-year-old male with chronic decubitus ulcer stage IV x2. Patient has improved from his sepsis. His wounds are looking okay without necrotic tissue. His nutritional status is poor and would like to avoid further debridement. The superior wound could possibly be managed with a VAC although the base of the wound does not have clean granulation tissue at this time. The inferior large decubitus wound would not hold seal if VAC was applied. This will be continued to be managed with wet-to-dry dressing changes. Will start making plans for disposition. Patient is stable and will need prolonged recovery with enhance nutrition and therapies. We will stay reestablish him in wound clinic.
--- NOTE | 2025-01-08 15:49 | PC.NURSE ---
Pt doing okay today. Continues to be hypertensive, provider aware. Pt is oriented to self, however continues to have intermittent confusion with place, time and situation. He is very pleasant to care for. Pt denies pain. Tolerating repositioning Q2H. Buttock wound dressing was changed by Dr. Randall at approximately 1130. Pt ate a good breakfast, and refused lunch; protein drink was provided. Bekah, nurse patient scheduling manager at [facility] was updated at 0120 ([phone]).
[2025-01-08 16:51] VITALS: BP 180/77; PULSE 73; RESP 16; TEMP 36.8; O2SAT 94
--- NOTE | 2025-01-08 17:17 | PC.SOCIAL ---
Discharge planning: Communicated with Pancho at [facility] that pt is expected to be ready for discharge back tomorrow and is not expected to be returning with a need for any wound vac. fountain worker to follow up with Bekah at [phone] in the morning regarding discharge plans.
[2025-01-08 20:30] VITALS: BP 185/96; PULSE 76; RESP 16; TEMP 36.4; O2SAT 96
[2025-01-08] MEDS: ATORVASTATIN CALCIUM 40 MG TABLET 80 MG PO (20:50)
[2025-01-08] MEDS: LATANOPROST 0.005% OPHTH 1 DROP EYE-BOTH (20:52)
[2025-01-08] MEDS: INSULIN ASPART 100 UNIT/ML SUBCUT (21:08)
--- NOTE | 2025-01-08 22:36 | PC.NURSE ---
Shift note ([id number]) The pt has been alert and oriented to self only; denies any chest pain or short of breath; Spo2 has been in the 90s in RA. Eason is patent and draining yellowish urine; Blanca tube draining very minimal out put. Wound care to buttock was done as ordered and packed wet to dry and covered with abd dressing- the pt tolerated the wound care. Zeferino oxide cream applied to reddened area . SBP has been running in the 180s- Dr Mcmillan was notified let it run as long as the patient asymptomatic The pt had uneventful shift
[2025-01-08 23:00] VITALS: BP 162/75; PULSE 67; RESP 16; TEMP 35.9; O2SAT 96
[2025-01-09 03:04] VITALS: BP 163/81; PULSE 95; RESP 16; TEMP 35.9; O2SAT 95
--- NOTE | 2025-01-09 06:45 | PC.NURSE ---
Patient came into my care at 2300. At this time the patient was sleeping deeply. I received on a previous report that they were no longer oriented to where and what was happening. I was able to get a partial response from the patient that they knew who they were, but he was otherwise too tired to respond. Vitally they remain hypertensive. Temperature was low. When I reassessed the patient in the morning he was alert and oriented to his normal self. He had a moderate bowel movement we cleaned up that required us to change the dressing for his lower pressure injury. The stool had soiled the outer dressing and reached the edges of his wound in this area. The area was cleaned and the wound changed per the order. Repositioned. ?
[2025-01-09 07:00] VITALS: BP 182/95; PULSE 68; RESP 14; TEMP 36.6; O2SAT 96
[2025-01-09 07:15] LABS: Hemoglobin* 11.3 gm/dL (13.5-17.5); Mean Corpuscular HGB Conc 31 gm/dL (32-36); Mean Corpuscular Hemoglobin 26 pg (26-34); Mean Corpuscular Volume 84 fL (80-100); Platelet Count* 148 K/uL (140-440)
[2025-01-09 07:21] LABS: Slide Review Reflex No
[2025-01-09] MEDS: OMEPRAZOLE 20 MG CAPSULE DR 40 MG PO (07:30)
[2025-01-09 07:41] LABS: Albumin* 2.9 g/dL (3.3-5.0); Chloride* 106 mmol/L (96-114); Potassium* 3.9 mmol/L (3.6-5.1); Sodium* 137 mmol/L (135-149)
[2025-01-09 07:44] LABS: Anion Gap 5 mEq/L (7-15); Blood Urea Nitrogen* 16 mg/dL (7-30); Carbon Dioxide* 26 mmol/L (20-32); Creatinine* 0.6 mg/dL (0.5-1.5); Est. Creatinine Clearance* 70.06; Estimated Glomerular Filt Rate 101 ml/min
[2025-01-09 07:45] LABS: Glucose* 124 mg/dL (60-115); Phosphorus* 2.3 mg/dL (2.5-4.5)
[2025-01-09] MEDS: ACETAMINOPHEN 500 MG TABLET 1000 MG PO (08:18)
[2025-01-09] MEDS: OXYCODONE 5 MG TABLET PO (08:20)
[2025-01-09] MEDS: APIXABAN 5 MG TABLET PO (09:39)
[2025-01-09] MEDS: BACLOFEN 10 MG TABLET PO (09:39)
[2025-01-09] MEDS: allopurinoL 100 MG TABLET PO (09:40)
[2025-01-09] MEDS: CALCIUM CARBONATE 500 MG CHEW PO (09:40)
[2025-01-09] MEDS: FUROSEMIDE 40 MG TABLET PO (09:41)
[2025-01-09] MEDS: METOPROLOL SUCCINATE (XL) 100 MG TAB PO (09:42)
[2025-01-09] MEDS: lisinopriL 20 MG TABLET 40 MG PO (09:42)
[2025-01-09] MEDS: polyethylene glycoL 3350 17 GM PACK PO (09:42)
[2025-01-09] MEDS: SENNOSIDES/DOCUSATE TABLET 2 TAB PO (09:45)
[2025-01-09] MEDS: SULFA/TRIMETHOPRIM 800/160 1 TAB PO (09:45)
[2025-01-09] MEDS: ACETIC ACID 1,000 ML IRR 0.25% 1 APPLIC IRRIGATION (09:47)
[2025-01-09] MEDS: POTASSIUM CHLORIDE 10 MEQ CAPSULE ER PO (09:49)
--- NOTE | 2025-01-09 10:39 | P.DS_ITS ---
DS: Providers Provider Date Seen: 01/09/25 Date of admission: 01/03/25 20:02 Primary care physician: Bijan Crawford MD Admitting Clinician: Kali Galindo MD Consults: 01/03/25 20:02 Consult to Physician [CONS] Routine Comment: Consulting Provider: Patricia Randall Has provider been notified: Yes Consult to Lidar Technician [CONS] Routine Comment: Reason for Consult:: Discharge Planning Needs Attending Physician on discharge: Kali Galindo MD DS: Summary Hospital Course Hospital Course: FINAL DIAGNOSIS/FOLLOW UP ISSUES: 1. Sepsis - delirium, hypotension. BCNTD. Wound growing proteus. Not ESBL. Not MRSA. 2. Stage IV pressure open wounds with complication 3. Anemia - ABLA. Transfused 3 units during this stay. Hgb on discharge 11.3 4. Acute kidney injury - related to his sepsis. Resolved. 3. H/O of cholecystostomy tube placement 4. History of anticoagulation for PE BRIEF HOSPITAL COURSE: Patient was admitted for 8 days. Synopsis of acute inpatient issues are outlined above. Chronic medical conditions with notable findings outlined above. This is Ren's 2nd admission in the last 2 months for sepsis from his longstanding stage IV decubitus wounds. This admission we identified a superior left buttock ulcer that needed surgical debridement. We also debrided his long-standing inferior left buttock wound. He was septic and delirious upon arrival and for the 1st 4 days of admission. He received IV broad-spectrum antibiotics. This was transition to Bactrim DS orally. His wound cultures grew a skin contaminant and then Proteus vulgaris. It is sensitive to Bactrim. We also treated and acute kidney injury with a peak creatinine of 2.2. He was back at his baseline of 0.6 on day of discharge. His delirium had cleared. In discussion about specifically his wound care we worked side by side with general surgery. The upper left buttock wound which is the smaller of the 2 at approximately 3 x 4 cm. It undermines to 3 cm superiorly and 2 cm inferiorly. We are recommending a wound VAC placement for this wound. It would need a small peel in place wound VAC lung continuous suction. This should be changed every 3 days. He does have follow-up arranged with the wound care center. Specifically the lower body knocked wound is much more chronic in nature. It is larger. It is approximately 7 x 7 cm. It was also debrided during this hospitalization. There is evidence of osteomyelitis. The bone was debrided to healthy bone. The ellison of this tunneling wound looks quite healthy. It is not possible to place a wound VAC on this wound as it would be difficult to apply. Ren is incontinent of both urine and stool. He has a halfway indwelling catheter. We feel strongly that his ultimate past to healing would included diverting loop colostomy. Plastics being involved for possible flap would also be necessary. He also needs his gallbladder removed as he has a his months long cholecystostomy tube in place. Labeled keep returning for hospitalizations based on the location of his wounds, immobility, being route high risk for sepsis. We strongly encourage that his care be directed toward [facility] for a future hospitalizations and inpatient wound care. DISCHARGE MEDICATIONS: See Reconciled list - SIGNIFICANT CHANGES: Short-term Bactrim. Metformin is on hold as his blood sugars have run low. This can be restarted once his blood sugars are consistently above 150. Specific instructions to the patient and follow-up are outlined below. REVIEW OF SYSTEMS No new chest pain or dyspnea Pain controlled No voiding difficulties Tolerating diet challenge PHYSICAL EXAM: CONSTITUTIONAL: Conversive, good historian. A/O. Knows setting and context. GENERAL: Well-developed with LE wasting and above ideal body weight, in no respiratory distress. VITAL SIGNS: see record. HEENT: Sclerae are anicteric. No petechiae. CARDIAC: rhythm is regular. There is no S3 or rub. No harsh murmurs. Extremities show trace edema with symmetrical pulses. PULM: good air entry with no wheeze. NEURO: Speech is fluent. A brief neurologic exam is at baseline. SKIN: two chronic stage IVdeub ulcers noted below. both on left buttock, one superior and one inferior. Superior decubitus ulcer wound was examined. No active bleeding was noted and the dressing is with serosanguineous fluid. The base of the wound has some white yellow appearing slough over the joint capsule which is probably ligamentous tissue. There is no necrotic tissue noted. No purulence noted. The inferior decubitus ulcer wound the base of the wound with the area of osteomyelitis has surrounding white in appearance slough that is most likely the joint capsule tissue. There is no necrotic tissue, there is no foul smell. The ellison of the wound have great granulation tissue. Both wounds were repacked with moist Kerlix roll with acetic acid. PSYCHIATRIC: Euthymic. superior left buttock. 4cm x 3cm, 3 cm deep with exposed joint capsule and tendons (grayish discolored) this wound needs the wound vac to be changed every 3 days inferior left buttock wound - 7 x 7 x 5 cm healthy ellison of wound osteomyelitis with exposed bone this is wet (kerlix only - 1 piece only) to dry every 24 hours DISPOSITION: [address] [place] [address], [facility] Time spent on discharge 37 minutes. Status at Discharge Functional status at discharge: wheelchair bound Overall status at discharge: patient is progressing back to baseline Time Spent with Patient Time attestation: Total time spent providing and/or coordinating discharge services: Time spent: Greater than 30 minutes Exam 2 Const: Vital Signs, click to edit/add: Vital Signs - 24 hr 01/08/25 10:53 01/08/25 16:51 01/08/25 16:51 Temperature 98.3 F 98.2 F Pulse Rate [Left P ulse Oximeter] 73 73 Pulse Rate [Right Pulse Oximeter] 78 73 73 Respiratory Rate 16 16 16 Blood Pressure [Le ft Arm] 196/94 H 180/77 H Pulse Oximetry 95 94 Oxygen Delivery Me thod Room Air Room Air 01/08/25 20:30 01/08/25 23:00 01/09/25 03:04 Temperature 97.6 F 96.6 F L 96.7 F L Pulse Rate [Left P ulse Oximeter] 76 Pulse Rate [Right Pulse Oximeter] 76 67 95 Respiratory Rate 16 16 16 Blood Pressure [Le ft Arm] 185/96 H 162/75 H 163/81 H Pulse Oximetry 96 96 95 Oxygen Delivery Me thod Room Air Room Air Room Air 01/09/25 07:00 Temperature 97.8 F Pulse Rate [Left P ulse Oximeter] 68 Pulse Rate [Right Pulse Oximeter] Respiratory Rate 14 Blood Pressure [Le ft Arm] 182/95 H Pulse Oximetry 96 Oxygen Delivery Me thod Room Air DS: Data Data Completed and Pending Completed studies during hospitalization: Procedures Change Drainage Device in Bladder, External Approach (12/12/24) Excision of Back Subcutaneous Tissue and Fascia, Open Approach (12/12/24) Extraction of Back Subcutaneous Tissue and Fascia, Open Approach (12/12/24) Labs on day of discharge: Labs from last 24 hours 01/09/25 07:04 WBC 10.40 RBC 4.40 Hgb 11.3 L Hct 37.0 MCV 84 MCH 26 MCHC 31 L Plt Count 148 Sodium 137 Potassium 3.9 Chloride 106 Carbon Dioxide 26 Anion Gap 5 L BUN 16 Creatinine 0.6 Estimated Creat Clear 70.06 Estimated GFR 101 Glucose 124 H Calcium 9.0 Phosphorus 2.3 L Albumin 2.9 L Preliminary micro results at discharge 01/05/25 12:00 Aerobic Culture - Preliminary Buttock Proteus vulgaris Gram positive cocci Discharge Plan Discharge Disposition: er [facility] Date of Admission: 01/03/25 20:02 Attending Provider on Discharge: Danae Tabares Consulting Providers: Patricia Randall Primary Care Provider: Bijan Crawford Condition: Stable Discharge Medications: New sulfamethoxazole-trimethoprim 800-160 mg Tablet 1 tab PO BID Qty: 14 0RF Continued bacitracin 500 unit/gram ointment 1 applic topical BID sennosides-docusate sodium [Senna Plus] 8.6-50 mg tablet 2 tab-cap PO DAILY Patient Comments: plus prn baclofen 10 mg tablet 10 mg PO BID Eliquis 5 mg tablet 5 mg PO BID atorvastatin 80 mg tablet 80 mg PO HS latanoprost 0.005 % drops 1 drp ophthalmic (eye) HS Rx Instructions: BOTH EYES furosemide 20 mg tablet 20 mg PO QPM ondansetron HCl 4 mg tablet 4 mg PO Q6H PRN diclofenac sodium 1 % gel 2 g topical BID PRN Ear Wax Removal Kit 6.5 % drops 5 drp otic (ear) Q7D Patient Comments: every Monday allopurinol 100 mg Tablet 100 mg PO DAILY Qty: 30 0RF clotrimazole 1 % cream 1 applic topical BID furosemide 40 mg tablet 40 mg PO DAILY potassium chloride 10 mEq capsule, extended release 10 meq PO BIDWM metoprolol succinate 100 mg tablet extended release 24 hr 100 mg PO DAILY acetaminophen 500 mg tablet 1,000 mg PO TID pantoprazole 40 mg tablet,delayed release (DR/EC) 40 mg PO BID calcium carbonate [Zachary-Gest Antacid] 200 mg calcium (500 mg) tablet,chewable 400 mg PO BID polyethylene glycol 3350 17 gram/dose powder 17 g PO DAILY Patient Comments: plus prn lisinopril 40 mg tablet 40 mg PO DAILY cholecalciferol (vitamin D3) [Vitamin D3] 25 mcg (1,000 unit) tablet 25 mcg PO DAILY acetic acid 0.25 % solution See Rx Instructions .ROUTE BID Patient Comments: [NO ORIGINAL SIG] Rx Instructions: 1 APPLICATION twice a day AND PRN TO BUTTOCK WOUND oxycodone 5 mg tablet 5 mg PO Q6H PRN ferrous sulfate 325 mg (65 mg iron) Tablet 325 mg PO Q48H Held metformin 500 mg Tablet Extended Release 24 Hr 1,000 mg PO QPM Hold Instructions: Resume on 01/13/25. once BS are consistently >150 Discharge Orders: Discharge Order (Routine); Ordered 01/09/25 Ordered By: Danae Tabares Additional Instructions: -Finish 7 days of Bactrim DS - wound care as below Activity Level: Activity as Tolerated Discharge Diet: Regular Follow Up Appointments: Bijan Crawford MD [Primary Care Provider, Family Practice] Referral Note: SNF will arrange Forms: MyHealth Info Instructions Wound Care: wet to dry to lower buttock wound, use one piece of kerlix soaked in acetic acid q 24 hours upper buttock wound, wound vac should be placed and changed every 3 days or per your protocol. if not using wound vac, ok to use same wet to dry dressing with one piece of kerlix soaked in acetic acid q 24 hours. see wound vac RX - sent to facility on day of discharge. Admit to: SNF Discharge Potential: Poor Length of Stay: >90 days Can use facility standing orders?: Yes Code Status: Full Code Rehab Potential: Poor Therapy: Physical Therapy Therapy Orders: Evaluate and Treat Oxygen: No Urinary Catheter: Yes Orders are good >30 days: Yes
[2025-01-09 11:00] VITALS: BP 174/73; PULSE 67; RESP 12; TEMP 36.5; O2SAT 96
--- NOTE | 2025-01-09 11:37 | PM.GSPN ---
Subjective Subjective Date Seen: 01/09/25 Interval history: Patient is doing well. His confusion has cleared. He is increasing his diet and eating more. Exam Narrative: Exam Narrative: Buttocks: Superior buttocks wound dressing was removed. There is no purulence on the dressing. Connective tissue/tissue over the joint and ligamentous tissue is white yellow in appearance with no necrosis. This was repacked with moist kerlix roll with acetic acid. The left decubitus ulcer (inferior) has great granulation tissue in almost entire wound. The base of the wound has exposed bone with no necrosis. The surrounding joint capsule is white without necrosis. This was also repacked with moist kerlix roll with acetic acid. Const: Vital Signs, click to edit/add: Vital Signs - 24 hr 01/08/25 16:51 01/08/25 16:51 01/08/25 20:30 Temperature 98.2 F 97.6 F Pulse Rate [Left P ulse Oximeter] 73 73 76 Pulse Rate [Right Pulse Oximeter] 73 73 76 Respiratory Rate 16 16 16 Blood Pressure [Le ft Arm] 180/77 H 185/96 H Pulse Oximetry 94 96 Oxygen Delivery Me thod Room Air Room Air 01/08/25 23:00 01/09/25 03:04 01/09/25 07:00 Temperature 96.6 F L 96.7 F L 97.8 F Pulse Rate [Left P ulse Oximeter] 68 Pulse Rate [Right Pulse Oximeter] 67 95 Respiratory Rate 16 16 14 Blood Pressure [Le ft Arm] 162/75 H 163/81 H 182/95 H Pulse Oximetry 96 95 96 Oxygen Delivery Me thod Room Air Room Air Room Air 01/09/25 11:00 Temperature 97.7 F Pulse Rate [Left P ulse Oximeter] 67 Pulse Rate [Right Pulse Oximeter] Respiratory Rate 12 Blood Pressure [Le ft Arm] 174/73 H Pulse Oximetry 96 Oxygen Delivery Me thod Room Air Progress Note:A&P Assessment and plan (1) Stage IV pressure ulcer of left buttock: Status: Acute Plan 75 yo paraplegic male s/p debridement of stage 4 decubitus ulcer. Patient is recovering well. Ok to d/c to custodial from surgery standpoint. Continue wet to dry dressing changes to the left inferior buttocks wound and consider VAC to the superior buttocks wound. Patient should see wound clinic provider next week.
--- NOTE | 2025-01-09 12:08 | PC.SOCIAL ---
Discharge Plan: Pt. will return to [address] [place] [address] today with a wet/dry wrap and then will have a wound vac placed at [facility]. The charge nurse has spoken to Bekah Clinical Coordinator at [phone] @ [facility] and they are ordering the wound vac today and it takes 24 hours to be delivered.
[2025-01-09 13:21] VITALS: BP 174/90; PULSE 96; O2SAT 95
--- NOTE | 2025-01-09 16:39 | PC.NURSE ---
Pt. alert and oriented, calm and cooperative. Verbalized understanding of discharge teachings. Dressing change performed by . [facility]. Wound vac to be placed as outpatient. Eason catheter observed to be patent and draining. Pt. d/c to return to [facility] via non-emergent EMS. IV removed with catheter intact. [facility] nurse to nurse done via telephone.
== END 2025-01-09 13:16 | DRG 853 ==
LOC: ED 18:07 → MEDSURG 18:25
PROVIDERS: Family Medicine; Surgery; Admitting Provider Internal Medicine; Emergency Provider Family Medicine; PCP Family Medicine; Visit Provider Internal Medicine
PROC: 0KBP0ZZ Excision of Left Hip Muscle, Open Approach (ICD-10-PCS; principal; 2025-01-05 08:00)
DX: A41.9 Sepsis, unspecified organism (principal); I26.99 Other pulmonary embolism without acute cor pulmonale; L89.324 Pressure ulcer of left buttock, stage 4; M86.18 Other acute osteomyelitis, other site; G82.20 Paraplegia, unspecified; N17.9 Acute kidney failure, unspecified; I96 Gangrene, not elsewhere classified; D62 Acute posthemorrhagic anemia; K59.2 Neurogenic bowel, not elsewhere classified; Z16.11 Resistance to penicillins; Z16.19 Resistance to other specified beta lactam antibiotics; L89.322 Pressure ulcer of left buttock, stage 2; G35 Multiple sclerosis; B96.4 Proteus (mirabilis) (morganii) as the cause of diseases classified elsewhere; E11.65 Type 2 diabetes mellitus with hyperglycemia; S05.02XA Injury of conjunctiva and corneal abrasion without foreign body, left eye, initial encounter; D63.8 Anemia in other chronic diseases classified elsewhere; N31.9 Neuromuscular dysfunction of bladder, unspecified; I89.0 Lymphedema, not elsewhere classified; Z79.84 Long term (current) use of oral hypoglycemic drugs; Z79.01 Long term (current) use of anticoagulants; R15.9 Full incontinence of feces; R39.81 Functional urinary incontinence; Z96.0 Presence of urogenital implants; Z93.59 Other cystostomy status; I10 Essential (primary) hypertension; E66.9 Obesity, unspecified; Z68.32 Body mass index [BMI] 32.0-32.9, adult; G47.30 Sleep apnea, unspecified; E78.5 Hyperlipidemia, unspecified; I25.10 Atherosclerotic heart disease of native coronary artery without angina pectoris; Z87.891 Personal history of nicotine dependence; L89.150 Pressure ulcer of sacral region, unstageable; Z99.3 Dependence on wheelchair
CPT/HCPCS: 00902; 11042; 36415; 36430; 36573; 74177; 80048; 80069; 80076; 81001; 82270; 82803; 82962; 83605; 83735; 84100; 84132; 84145; 84484; 85025; 85027; 86140; 86850; 86900; 86901; 86922; 87040; 87070; 87075; 87076; 87081; 87086; 87205; 99100; 99285; A4221; A9270; C1751; J0878; J1171; J1200; J1650; J2185; J2250; J2405; J2543; J2704; J3490; J7030; J7050; J7120; P9016; Q9967

== ENCOUNTER 2025-01-09 13:05 | Outpatient (CLI) | payer MEDICARE, SELFPAY ==
--- OUTSIDE RECORDS SUMMARY | 2025-01-11 00:15 | XMS_ITS | Clinical Summary ---
Author Organization [facility] Address [address] [place] [address] Care Team Providers Care Dermatology Technician Name Role Phone Nitin Birdie Sam RN Unavailable [phone] Karrie Singer RN Unavailable [phone] Clinic, No Pcp Or Primary Care Provider Unavaila ble Allergies Active Allergy Reactions Criticality Noted Date Comments Vancomycin vancomycin infusion reaction (cutaneous flushing/non-allergic reaction) Medium 05/26/2018 Red Man Syndrome Encounters Date Type Department Care Team Description 12/30/2024 Lab Requisition [facility] [phone] Carmenza Quiroz NP 12/23/2024 Lab Requisition [facility] [phone] Carmenza Quiroz NP 12/13/2024 Lab Requisition [facility] [phone] Sue Bailey MD 12/09/2024 Lab Requisition [facility] [phone] Carmenza Quiroz NP 11/29/2024 Lab Requisition [facility] [phone] Bijan Crawford MD 11/14/2024 8:30 AM CDT - 11/14/2024 11:59 PM CDT Hospital Encounter [facility] [address] [place] [address] Pablo Vo [facility] Acute pulmonary embolus (HC); 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 HEMATOCRIT 32.5(L) 37.0 - 53.0 % 12/31/2024 10:[address] [facility] MCV 87 80 - 100 fL 12/31/2024 10:[address] [facility] MCH 25.0(L) 26.0 - 34.0 pg 12/31/2024 10:[address] [facility] MCHC 28.6(L) 32.0 - 36.0 g/dL 12/31/2024 10:[address] [facility] RDW 19.3(H) 11.5 - 15.5 % 12/31/2024 10:[address] [facility] PLATELET COUNT 263 140 - 440 thou/cu mm 12/31/2024 10:[address] [facility] MPV 9.3 6.5 - 11.0 fL 12/31/2024 10:[address] [facility] % NEUT 64.3 % 12/31/2024 10:[address] [facility] % LYMPH 23.0 % 12/31/2024 10:[address] [facility] % MONO 9.7 % 12/31/2024 10:[address] [facility] % EOS 2.9 % 12/31/2024 10:[address] [facility] % BASO 0.1 % 12/31/2024 10:[address] [facility] ABSOLUTE NEUTROPHILS 5.2 1.7 - 7.0 thou/cu mm 12/31/2024 10:[address] [facility] ABSOLUTE LYMPHOCYTES 1.9 0.9 - 2.9 thou/cu mm 12/31/2024 10:[address] [facility] ABSOLUTE MONOCYTES 0.8 <0.9 thou/cu mm 12/31/2024 10:[address] [facility] ABSOLUTE EOSINOPHILS 0.2 <0.5 thou/cu mm 12/31/2024 10:[address] [facility] ABSOLUTE BASOPHILS 0.0 <0.3 thou/cu mm 12/31/2024 10:[address] [facility] Blood BLOOD SPECIMEN / Unknown Butterfly / Unknown 12/31/2024 7:10 AM CDT 12/31/2024 9:36 AM CDT us Carmenza Quiroz NP HEMATOLOGY Final Resul t Performing Organization Address City/[facility] Co de Phone Number [facility] [address] [place] [address] * (ABNORMAL) RED CELL MORPHOLOGY (12/31/2024 7:10 AM CDT) ELLIPTOCYTES Few 12/31/2024 10:44 AM CDT [facility] POLYCHROMASIA Slight 12/31/2024 10:44 AM CDT [facility] TEARDROP CELLS Few 12/31/2024 10:44 AM CDT [facility] RBC COMMENT Present(A) RBC morphology appears normal, RBC morphology within normal limits for newborns. 12/31/2024 10:44 AM CDT [facility] *BASOPHILIC STIPPLING Present 12/31/2024 10:44 AM CDT [facility] Blood BLOOD SPECIMEN / Unknown Butterfly / Unknown 12/31/2024 7:10 AM CDT 12/31/2024 9:36 AM CDT us Carmenza Quiroz NP HEMATOLOGY Final Resul t Performing Organization Address [facility] Co de Phone Number [facility] [address] [place] [address] * PLATELET ESTIMATE (12/31/2024 7:10 AM CDT) PLATELET ESTIMATE Adequate Adequate, No estimate 12/31/2024 10:44 AM CDT [facility] Blood BLOOD SPECIMEN / Unknown Butterfly / Unknown 12/31/2024 7:10 AM CDT 12/31/2024 9:36 AM CDT Carmenza Quiroz NP HEMATOLOGY Final Resul t Performing Organization Address City/[facility]/ZIP Co de Phone Number [facility] [address] [place] [address] * LAB TRACKING EVENT (12/13/2024 3:58 PM CDT) Other (Other) Client Collect / Unknown 12/13/2024 3:58 PM CDT 12/13/2024 10:08 PM CDT us Sue Bailey MD LAB BILL ONLY Final Re sult [facility] [address] [place] [address], * PATH TISSUE EXAM (12/13/2024 3:58 PM CDT) Case Report Pathology Report Case: [id number] Authorizing Provider: Sue Bailey MD Collected: 12/13/2024 1558 Ordering Location: [facility] Received: 12/14/2024 0858 Pathologist: Shay Noland MD Specimen: Left Buttock, left buttock pressure ulcer tissue 12/19/2024 1:42 PM CDT [facility] Final Diagnosis A) SOFT TISSUE, LEFT BUTTOCK, DEBRIDEMENT: Fibroadipose tissue with necrosis and foci of acute inflammation 12/19/2024 1:42 PM CDT [facility] at 1341 CDT Clinical Information Pressure ulcer on the left buttock. 12/19/2024 1:42 PM CDT [facility] Gross Description A) Received in formalin, labeled with the patient's name and L buttock pressure ulcer tissue, is a 7.5 x 5.5 x 3.3 cm aggregate of multiple irregular portions of sandoval-brown, dusky and ragged soft tissue. No lesions or masses are identified. Topographical Surveyor sections are submitted in 1 cassette. JKG 12/17/2024 12/19/2024 1:42 PM CDT [facility] Microscopic Description The final diagnosis is based on microscopic examination of appropriate sections of all specimens. 12/19/2024 1:42 PM CDT [facility] Additional Information Interpreted at [facility] - [address], [place] [address] 12/19/2024 1:42 PM CDT [facility] Other (Left Buttock) 12/13/2024 3:58 PM CDT 12/14/2024 8:58 AM CDT Sue Bailey MD PATHOLOGY/CYTOLOGY Final Result Performing Organization Address City/[facility]/ZIP Co de Phone Number [facility] [address] [place] [address], * (ABNORMAL) C-REACTIVE PROTEIN (12/10/2024 7:05 AM CDT) C-REACTIVE PROTEIN 23.1(H) <0.5 mg/dL 12/10/2024 8:20 AM CDT [facility] Blood BLOOD SPECIMEN / Unknown Venipuncture / Unknown 12/10/2024 7:05 AM CDT 12/10/2024 7:47 AM CDT Carmenza Quiroz NP CHEMISTRY Final Resul t Performing Organization Address [facility]/ZIP Co de Phone Number [facility] [address] [place] [address] * VITAMIN B12 (12/10/2024 7:05 AM CDT) VITAMIN B12 510 232 - 1,245 pg/mL 12/10/2024 12:14 PM CDT [facility] Blood BLOOD SPECIMEN / Unknown Venipuncture / Unknown 12/10/2024 7:05 AM CDT 12/10/2024 7:47 AM CDT Narrative [facility] - 12/10/2024 12:14 PM CDT Biotin supplements may cause clinically significant interference for this test assay. If interference is suspected, it is strongly recommended that biotin is discontinued for at least one week prior to retesting. Carmenza R Gabriella HAND TOUCH UP PAINTER CHEMISTRY Final Resul t [facility] [address] [place] [address], * (ABNORMAL) BASIC METABOLIC PANEL (12/03/2024 8:35 AM [facility]) Only the most recent of2 resultswithin the time period is included. SODIUM 138 136 - 145 mmol/L 12/03/2024 9:[address] [facility] POTASSIUM 4.9 3.5 - 5.1 mmol/L 12/03/2024 9:[address] [facility] CHLORIDE 100 98 - 107 mmol/L 12/03/2024 9:[address] [facility] CO2,TOTAL 23 22 - 29 mmol/L 12/03/2024 9:[address] [facility] ANION GAP 15 5 - 18 12/03/2024 9:[address] [facility] GLUCOSE 218(H) 70 - 99 mg/dL 12/03/2024 9:[address] [facility] CALCIUM 9.9 8.8 - 10.4 mg/dL 12/03/2024 9:[address] [facility] Comment: Reference ranges for this test were updated on 05/28/2024 to reflect our healthy population more accurately. Reference range changes are not retroactively applied to results, but previous results using the same methodology can be interpreted in the context of the new reference range. BUN 32(H) 8 - 23 mg/dL 12/03/2024 9:[address] [facility] CREATININE 0.87 0.70 - 1.20 mg/dL 12/03/2024 9:[address] [facility] BUN/CREAT RATIO 37(H) 10 - 20 9:[address] [facility] eGFR >90 >90 mL/min/1. 73m2 12/03/2024 9:[address] [facility] Comment:As of 2021, eG FR [...] us Bijan Crawford MD CHEMISTRY Final Result Performing Organization Address City/[facility]/ZIP Co de Phone Number [facility] [address] [place] [address] * CT CHEST PE STUDY (11/14/2024 9:06 AM CDT) Anatomical Region Laterality Modality CHEST, THORAX, HEART Computed To mography us Pablo Lynna [facility] CT Fin al Result * SCAN-RADIOLOGY REPORT (11/14/2024 12:00 AM CDT) Anatomical Region Laterality Modality Computed Tomogra phy us Scanner OTHER Final Result * (ABNORMAL) HEMOGLOBIN A1C (10/29/2024 7:37 AM CDT) HEMOGLOBIN A1C SCREENING 7.4(H) <=6.4 % 10/29/2024 8:39 AM CDT [facility] Blood BLOOD SPECIMEN / Unknown Butterfly / Unknown 10/29/2024 7:37 AM CDT 10/29/2024 8:31 AM CDT Narrative [facility] - 10/29/2024 8:39 AM CDT (<5.7%) Normal (5.7% to 6.4%) Indicates prediabetes (>=6.5%) Confirms diabetes Falsely low levels may be seen with: Recent Transfusion, Recent Significant Blood Loss, Hemolytic Diseases, or Falsely elevated levels may be seen with: Untreated Anemias, Splenectomy us Carmenza Quiroz NP CHEMISTRY Final Resul t Performing Organization Address [facility]/ZIP Co de Phone Number [facility] [address] [place] [address] from Last 3 Months Insurance [employer] [facility] [employer] [facility] Care Teams Dermatology Technician Relationship Specialty Start Date End Date Clinic, No Pcp Or . PCP - General 07/31/23 Birdie Taveras RN [address] [address] Head Of Store Operations - [facility] Registered Nurse 07/24/23 Karrie Singer RN [address] [facility] [address] [place] [address] Head Of Store Operations - [facility] Registered Nurse 07/24/23
--- OUTSIDE RECORDS SUMMARY | 2025-01-11 00:15 | XMS_ITS | Patient Health Record ---
Author Organization [facility] Address [address] [place] [address] Care Team Providers Care Laundry Sorter Name Role Phone Rubén Paez MD Primary Care Provider Melody Michael [place] Unavailable [phone] Reason For Referral No Information Social History Tobacco Use: Social History Observation Description Date Details (start date - stop date) Former Smoker NA - NA Tobacco Use/Smoking Question Answer Notes Are you a former smoker Section Notes: FAMILY HISTORY: HISTORY OF FAMILY PSYCH: Problems Problem Type SNOMED Code ICD Code Onset Dates Problem Status W/U Status Risk Notes Problem Tinea unguium (600317951) Tinea unguium (B35.1) Active confirmed Problem 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 (695779748) 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 confirmed Problem 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 Problem Pressure injury of right buttock stage III (disorder) (94253820018186 ) Pressure ulcer of right buttock, stage 3 (L89.313) Active confirmed Problem Pressure injury of right heel stage IV (disorder) (14624003767907 ) Pressure ulcer of right heel, stage 4 (L89.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 [place] [address] [id number] Ren Ramirez Self - patient is the insured 3
== END 2025-01-09 13:06 | disposition home or self-care (01) ==
LOC: AMB 01-10 13:04
PROVIDERS: PCP Family Medicine; Visit Provider Family Medicine
DX: L89.324 Pressure ulcer of left buttock, stage 4 (principal)
CPT/HCPCS: A0425; A0428

== ENCOUNTER 2025-01-15 12:22 | Outpatient (CLI) | payer MEDICARE, SELFPAY | END 2025-01-15 12:23 | disposition home or self-care (01) | LOC: WOUND 12:22 | PROVIDERS: PCP Family Medicine; Visit Provider Surgery | DX: L89.324 Pressure ulcer of left buttock, stage 4 (principal); L89.154 Pressure ulcer of sacral region, stage 4; M86.28 Subacute osteomyelitis, other site; G35 Multiple sclerosis; G82.20 Paraplegia, unspecified; Z99.3 Dependence on wheelchair | CPT/HCPCS: 97605; G0463 ==

== ENCOUNTER 2025-01-22 12:43 | Outpatient (CLI) | payer MEDICARE, SELFPAY | END 2025-01-22 12:44 | disposition home or self-care (01) | LOC: WOUND 12:43 | PROVIDERS: PCP Family Medicine; Visit Provider Surgery | DX: L89.324 Pressure ulcer of left buttock, stage 4 (principal); M86.68 Other chronic osteomyelitis, other site; G35 Multiple sclerosis; G82.20 Paraplegia, unspecified; Z99.3 Dependence on wheelchair | CPT/HCPCS: 11042; 97605 ==

== ENCOUNTER 2025-01-28 08:28 | Outpatient (CLI) | payer MEDICARE, SELFPAY | END 2025-01-28 08:29 | disposition home or self-care (01) | LOC: AMB 01-30 12:50 | PROVIDERS: PCP Family Medicine; Visit Provider Student in an Organized Health Care Education/Training Program | DX: R10.9 Unspecified abdominal pain (principal) | CPT/HCPCS: A0425; A0427 ==

== ENCOUNTER 2025-01-28 09:14 | Emergency (ER) | payer MEDICARE, SELFPAY ==
--- OUTSIDE RECORDS SUMMARY | 2025-01-23 17:26 | XMS_ITS | Encounter Summary ---
Author Organization [facility] Address [address] [place] [id number] Care Team Providers Care Paper Supervisor Name Role Phone Jeff Reyes M.D. 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 [address] [place] [phone] Phone: tel: fax: [facility] Referral ID Status Reason Start Date Expiration Date V isits Requested Visits Authorized [id number] Authorized 01/23/2025 07/25/2026 1 1 Reason for Visit * Reason Comments Altered Mental Status Encounter Details Date Type Department Care Team (Late st Contact Info) Description 01/23/2025 5:26 PM CDT - 01/24/2025 12:38 AM CDT Emergency [facility] [address] [place] [phone] Ollie Walters M.D. [address] [place] [phone] Pain Generalized Abdominal (Primary Dx); 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) Discharge Disposition: Home or Self Care Social History Tobacco Use Types Packs/Day Years Used Date Smoking Tobacco: Former Cigarettes Q uit: 1977 Passive Smoke Exposure: Never Alcohol Use Standard Drinks/Week Comments Not Currently 1 (1 standard drink = 0.6 oz pur e alcohol) [facility] Utilities Answer Date Recorded In [...] Assigned at Male 06/26/2018 4:20 PM [employer] Legal Sex Male 3:33 AM [employer] Gender Identity Not on file Sexual Orientation [...] of breath. Please follow-up with your outpatient physicianMonday to coordinate further workup and management of your sacral wounds. * Attachments The following attachments cannot be sent through Care Everywhere. * Pressure Injury (Zimbabwean) * Abdominal Pain Adult [id number] (Zimbabwean) documented in this encounter Medications at Time [...] this encounter Progress Notes * Mook Holland M.S.W., L.I.C.S.W. - 01/23/2025 11:58 PM CDT SUBJECTIVE Emergency Department Social Work is consulted by nursing to arrange return transportation to patient's facility - [facility] in [facility]. Nursing reports patient is alert and oriented, [...] his transportation. Social work offers information for [facility] transportation resources and discusses senior linkage line, offering formal referral. Patient expresses doubt that the transportation resources offered would be able to support patient's transportation needs, but does accept the information provided. Patient declines referral to the Senior Linkage Line. Social work speak with patient's son - Homero Ramirez, phone: [phone] - regarding patient situation and transportation needs. [...] would like further conversation with the ED loss prevention consultant to discuss the medical decision to dismiss the patient, which he declines. Social work offers additional supportive options, and Homero accepts the [facility] reporting line, and the Office of [...] of patient and family's concerns. The ED loss prevention consultant reviews with ED social work that [...] with transportation back to his facility in [facility]. Social work arranged transportation with [employer], phone: [phone]. ASSESSMENT / PLAN ASSESSMENT Transport resources were explored and arranged to assist with the patient's needs. The patient appears to have insight into their needs at this time. PLAN 1. [employer], phone: [phone] to provide return transportation to [facility] in [facility]. 2. Please contact social work if further supportive or dismissal needs arise. The patient is being prepared to discharge on 01/24/25 at 00:35 if medically ready for transfer. Contact Social Work if time needs to be changed. Transportation will be provided by [employer] ([phone] ). Transportation will be paid for by Other. Darius Tate, Moe 01/23/2025 documented in this encounter Consult Notes * Bebeto Casper M.D. - 01/23/2025 10:21 PM CDT ---------Miscellaneous [facility] ED consult Service Note-------- Mr. Ren Ramirez a chart review was completed. The patient was not seen or evaluated by the [facility] ED Consult Team. Chart review and discussion with Emergency Department provider Ollie Walters M.D.. Meseret was asked to arrange close PCP follow up. Will ask our DOS for help on Monday. -----All results and laboratory testing will be followed by the emergency department team. Please ensure results are forwarded to them. We appreciate the collaborative care with the [facility] ED in the management of Mr. Ren Ramirez. If any questions or concerns, feel free to page [phone] [facility] ED Consult Team between the hours [...] physician. We appreciate the help of the [place] team in arranging a primary care visit early next week. He should plan to follow up next week with primary care. If he develops any changes in his condition he should return to the emergency department for re-evaluation.. 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 01/25/251824 Ollie Walters M.D. 01/25/251825 * Chung Mehta M.D. - 01/23/2025 5:49 PM CDT SUBJECTIVE CHIEF COMPLAINT/REASON FOR VISIT Altered Mental Status HISTORY OF PRESENT ILLNESS Patient presents to the ED via EMS from [address] [place] [address] [facility] for abdominal pain. Has history of multiple [...] facility. ED Course as of 01/24/25 0013 [facility] Jan 23, [id number] CBC without Differential 1826 [...] Calcium, Total, P 8.8 Glucose, P 122 1926 Lactate, B: Lactate 1.2 1951 Lipase: Lipase, S 16 2005 Estimated GFR (eGFR)(!): 55 2016 Bacteria / Zenobia Culture, Blood #2 2016 Bacteria / Zenobia Culture, Blood #1 2016 Urinalysis, with Microscopic: Urine, Catheter 2027 CRP (C-Reactive Protein) 2027 Sedimentation Rate 2211 Discussed the patient's case with Nikunjlaisha. They state that they are unable to [...] contrast dye from abdominal CT with contrast. 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 12:13 AM CDT Chung Mehta M.D. Resident 01/23/25 2353 Chung Mehta M.D. Resident 01/24/2518 * Dena Arshad R.N. - 01/23/2025 5:44 [...] AM CDT Appointment Department of Radiology in [place], [place] [address] [place] [phone] Pablo Vo M.D. [address] [place] [phone] 02/10/2025 1:30 PM CDT Appointment Department of Radiology in [place], [place] [address] [place] [address] Anuel Nunn M.D. [address] [place] [phone] Rosenda Pedroza, EUSEBIO, C.N.P., M.S.N. [address] [place] [phone] 02/21/2025 11:00 AM CDT Virtual Visit Department of Oncology in [place], [place] [address] [place] [phone] Pablo Vo M.D. [address] [place] [address] Pending Results Name Type Priority Associated Diagnoses Date /Time Bacteria / Zenobia Culture, Blood #1 Microbiology STAT 01/23/2025 8:3 2 PM CDT Bacteria / Zenobia Culture, Blood #2 Microbiology STAT 01/23/2025 8:3 4 PM CDT Scheduled Referrals Name Type Priority Associated Diagnoses [...] M.D. LAB URINE ORDERABLES Fin al Result [facility] [address] [facility] [address] [place] [address] * pH, Urine (01/23/2025 8:37 PM CDT) pH, U 5.4 4.5 - 8.0 01/23/2025 9:0 3 PM CDT DTL Urine 01/23/2025 8:37 PM CDT 01/23/2025 8:49 PM CDT us Chung P Jeppesen M.D. LAB URINE ORDERABLES Fin al Result Performing Organization Address City/[facility] Co de Phone Number [facility] [address] [place] [address] * Osmolality, Urine (01/23/2025 8:37 PM CDT) Osmolality, U 409 150 - 1150 mOsm/kg 01/23/2025 9:03 PM CDT DTL Urine 01/23/2025 8:37 PM CDT 01/23/2025 8:49 PM CDT Chung Mehta M.D. LAB URINE ORDERABLES Fin al Result Performing Organization Address [facility] Co de Phone Number [facility] [address] [place] [address] * Microscopic Automated (01/23/2025 8:37 PM CDT) [...] ORDERABLES Fin al Result Performing Organization Address City/[facility] Co de Phone Number [facility] [address] [place] [address] * Urinalysis, with Microscopic: Urine, Catheter (01/23/2025 [...] ORDERABLES Fin al Result Performing Organization Address City/[facility]/ZIP Co de Phone Number [facility] [address] [place] [address] * (ABNORMAL) Sedimentation Rate (01/23/2025 8:36 PM CDT) Sedimentation Rate, B 109(H) 3 - 28 mm/h 01/23/2025 9:29 PM CDT DTL Blood (Blood, Venous) 01/23/2025 8:36 PM CDT 01/23/2025 8:47 PM CDT Chung Mehta M.D. LAB BLOOD ADD-ON Final R esult Performing Organization Address City/[facility]/ZIP Co de Phone Number [facility] [address] [facility] [address] [place] [address] * (ABNORMAL) CRP (C-Reactive Protein) (01/23/2025 8:36 PM CDT) Pathologist [facility] C-Reactive Protein (CRP), S 124.8(H) <5.0 mg/L 01/23/2025 9:28 PM CDT DTL Blood (Blood, Venous) 01/23/2025 8:36 PM CDT 01/23/2025 9:01 PM CDT Chung Mehta M.D. LAB BLOOD ADD-ON Final R esult [facility] [address] DTL [facility] [address] [place] [address] * Lactate for Sepsis with Reflex (01/23/2025 8:32 PM CDT) Pathologist [facility] Lactate, P 1.3 0.5 - 2.2 mmol/L 01/23/2025 8:59 PM CDT STMA Blood (Blood, Venous) 01/23/2025 8:32 PM CDT 01/23/2025 8:44 PM CDT Chung Mehta M.D. LAB BLOOD NON ADD-ON Fin al Result [facility] [address] STMA [facility] [address] [place] [address] * CT Abdomen Pelvis with IV Contrast [...] * Lactate, B (01/23/2025 6:55 PM CDT) Pathologist [facility] Lactate, B 1.2 0.5 - 2.2 mmol/L 01/23/2025 7:05 PM CDT STMA Blood (Blood, Venous) 01/23/2025 6:55 PM CDT 01/23/2025 7:02 PM CDT us Ollie Walters M.D. LAB BLOOD NON ADD-ON Final Res ult Performing Organization Address City/[facility]/ZIP Co de Phone Number [facility] [address] STMA [facility] [address] [place] [address] * Lipase (01/23/2025 6:55 PM CDT) [facility] Lipase, S 16 13 - 60 U/L 01/23/2025 7: 42 PM CDT DTL Blood (Blood, Venous) 01/23/2025 6:55 PM CDT 01/23/2025 7:25 PM CDT Ollie Walters M.D. LAB BLOOD ADD-ON Final Result Performing Organization Address City/[facility]/ZIP Co de Phone Number [facility] [address] [place] [address] * (ABNORMAL) Basic Metabolic Panel (01/23/2025 6:55 [...] Walters M.D. LAB BLOOD ADD-ON Final Result [facility] [address] [place] [address], [facility] [address] [place] [address] * (ABNORMAL) CBC without Differential (01/23/2025 6:55 [...] Walters M.D. LAB BLOOD ADD-ON Final Result [facility] [address] [place] [address], [facility] [address] [place] [address] * ECG 12 Lead (01/23/2025 5:18 PM CDT) Ventricular Rate ECG/Min 79 BPM MUSE UT Interval 210 ms MUSE QRSD Interval 96 ms MUSE QT Interval 370 ms MUSE QTC Interval 424 ms MUSE P Roundup 42 degrees MUSE R Roundup -12 degrees MUSE T Wave Roundup 47 degrees MUSE 01/23/2025 5:18 PM CDT [...] dose 0008 (Given - Provid er: Anitra A [place], R.N.) diphenhydrAMINE injection 25 mg (BenadryL) (COMPLETED) 25 mg, intravenous, Once, On Mon01/24/25 at 0002, For 1 dose 0008 (Given - Provid er: Anitra A [place], R.N.) sodium chloride (PF) 0.9 % injection 1-100 mL (COMPLETED) 1-100 mL, intravenous, Once, On Mon01/23/25 at [...] as of this encounter Care Teams Paper Supervisor Relationship Specialty Start Date End Date Jeff Reyes M.D. [address] [place] [phone] PCP - General 03/14/24 documented as of this encounter
[2025-01-28] VITALS (8 sets, daily range): BP systolic 110–141; BP diastolic 47–54; PULSE 61–71; RESP 12–21; TEMP 36.3; O2SAT 93–97; BMI 32.5
--- OUTSIDE RECORDS SUMMARY | 2025-01-28 09:17 | XMS_ITS | Clinical Summary ---
Author Organization [facility] Address [address] [place] [address] Care Team Providers Care Home Economics Teacher Name Role Phone Birdie Taveras RN Unavailable [phone] Karrie Singer RN Unavailable [phone] Clinic, No Pcp Or Primary Care Provider Unavaila ble Allergies Active Allergy Reactions Criticality Noted Date Comments Vancomycin vancomycin infusion reaction (cutaneous flushing/non-allergic reaction) Medium 05/26/2018 Red Man Syndrome Encounters Date Type Department Care Team Description 01/20/2025 Lab Requisition [facility] [phone] Carmenza Quiroz NP 01/14/2025 Lab Requisition [facility] [address] [place] [address] Carmenza Quiroz NP 12/30/2024 Lab Requisition [facility] [phone] Carmenza Quiroz NP 12/23/2024 Lab Requisition [facility] [phone] Carmenza Quiroz NP 12/13/2024 Lab Requisition [facility] [phone] Sue Bailey MD 12/09/2024 Lab Requisition [facility] [phone] Carmenza Quiroz NP 11/29/2024 Lab Requisition [facility] [phone] Bijan Crawford MD 11/14/2024 8:30 AM CDT - 11/14/2024 11:59 PM CDT Hospital Encounter [facility] [place] [facility] [address] [place] [address] Pablo Vo, [facility] Acute pulmonary embolus (HC); 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, bi (HC) 10/28/2024 Lab Requisition [facility] [phone] Carmenza Quiroz NP from Last 3 Months [...] Description 02/05/2025 9:30 AM CDT Office Visit [facility] [address] [place] [address] Markel Schultz MD [address] [place] [address] Procedures Procedure Name Priority Date/Time Associated Diagnosis Comments CBC WITH AUTO DIFFERENTIAL Routine 01/21/2025 7:25 AM CDT Type 2 diabetes mellitus with unspecified complications (HC) Pressure ulcer of other site, stage 2 (HC) BASIC METABOLIC PANEL Routine 01/21/2025 7:25 AM CDT Type 2 diabetes mellitus with unspecified complications (HC) Pressure ulcer of other site, stage 2 (HC) CBC WITH AUTO DIFFERENTIAL Routine 01/21/2025 7:25 AM CDT Type 2 diabetes mellitus with unspecified complications (HC) Pressure ulcer of other site, stage 2 (HC) CBC WITH AUTO DIFFERENTIAL Routine 01/14/2025 7:40 AM CDT Pressure ulcer of left buttock, stage 4 (HC) Osteomyelitis, unspecified (HC) BASIC METABOLIC PANEL Routine 01/14/2025 7:40 AM CDT Pressure ulcer of left buttock, stage 4 (HC) Osteomyelitis, unspecified (HC) TSH Routine 01/14/2025 7:40 AM CDT Pressure ulcer of left buttock, stage 4 (HC) Osteomyelitis, unspecified (HC) PRO-BNP Routine 01/14/2025 7:40 AM CDT Pressure ulcer of left buttock, stage 4 (HC) Osteomyelitis, unspecified (HC) C-REACTIVE PROTEIN Routine 01/14/2025 7: 40 AM CDT Pressure ulcer of left buttock, stage 4 (HC) Osteomyelitis, unspecified (HC) ALT (SGPT) Routine 01/14/2025 7:40 AM CDT Pressure ulcer of left buttock, stage 4 (HC) Osteomyelitis, unspecified (HC) ALK PHOSPHATASE Routine 01/14/2025 7:40 AM CDT Pressure ulcer of left buttock, stage 4 (HC) Osteomyelitis, unspecified (HC) CBC WITH AUTO DIFFERENTIAL Routine 01/14/2025 7:40 AM CDT Pressure ulcer of left buttock, stage 4 (HC) Osteomyelitis, unspecified (HC) RED CELL MORPHOLOGY Routine 12/31/2024 7 :10 [...] Results * (ABNORMAL) CBC WITH AUTO DIFFERENTIAL (01/21/2025 7:25 AM CDT) Only the most recent of6 resultswithin the time period is included. WHITE BLOOD COUNT 8.3 4.5 - 11.0 thou/cu mm 01/21/2025 9:26 AM [facility] RED BLOOD COUNT 4.18(L) 4.30 - 5.90 mil/cu mm 01/21/2025 9:26 AM [facility] HEMOGLOBIN 10.9(L) 13.5 - 17.5 g/dL 01/21/2025 9:26 AM [facility] HEMATOCRIT 36.6(L) 37.0 - 53.0 % 01/21/2025 9:26 AM [facility] MCV 88 80 - 100 fL 01/21/2025 9:26 AM [facility] MCH 26.1 26.0 - 34.0 pg 01/21/2025 9:26 AM [facility] MCHC 29.8(L) 32.0 - 36.0 g/dL 01/21/2025 9:26 AM [facility] RDW 18.9(H) 11.5 - 15.5 % 01/21/2025 9:26 AM [facility] PLATELET COUNT 244 140 - 440 thou/cu mm 01/21/2025 9:26 AM [facility] MPV 9.2 6.5 - 11.0 fL 01/21/2025 9:26 AM [facility] % NEUT 71.1 % 01/21/2025 9:26 AM [facility] % LYMPH 18.2 % 01/21/2025 9:26 AM [facility] % MONO 7.7 % 01/21/2025 9:26 AM [facility] % EOS 2.8 % 01/21/2025 9:26 AM [facility] % BASO 0.2 % 01/21/2025 9:26 AM [facility] ABSOLUTE NEUTROPHILS 5.9 1.7 - 7.0 thou/cu mm 01/21/2025 9:26 AM [facility] ABSOLUTE LYMPHOCYTES 1.5 0.9 - 2.9 thou/cu mm 01/21/2025 9:26 AM [facility] ABSOLUTE MONOCYTES 0.6 <0.9 thou/cu mm 01/21/2025 9:26 AM [facility] ABSOLUTE EOSINOPHILS 0.2 <0.5 thou/cu mm 01/21/2025 9:26 AM T [facility] ABSOLUTE BASOPHILS 0.0 <0.3 thou/cu mm 01/21/2025 9:26 AM T [facility] Blood BLOOD SPECIMEN / Unknown Butterfly / Unknown 01/21/2025 7:25 AM CDT 01/21/2025 9:12 AM CDT us Carmenza Quiroz CENTER DIRECTOR LEAD TEACHER HEMATOLOGY Final Resul t [facility] [address] [place] [address] * (ABNORMAL) BASIC METABOLIC PANEL (01/21/2025 7:25 AM CDT) Only the most recent of4 resultswithin the time period is included. SODIUM 139 136 - 145 mmol/L 01/21/2025 9:36 AM [facility] POTASSIUM 4.8 3.5 - 5.1 mmol/L 01/21/2025 9:36 AM [facility] CHLORIDE 101 98 - 107 mmol/L 01/21/2025 9:36 AM [facility] CO2,TOTAL 25 22 - 29 mmol/L 01/21/2025 9:36 AM [facility] ANION GAP 13 5 - 18 01/21/2025 9:36 AM [facility] GLUCOSE 98 70 - 99 mg/dL 01/21/2025 9:36 AM [facility] CALCIUM 9.3 8.8 - 10.4 mg/dL 01/21/2025 9:36 AM [facility] Comment: Reference ranges for this test were updated on 05/28/2024 to reflect our healthy population more accurately. Reference range changes are not retroactively applied to results, but previous results using the same methodology can be interpreted in the context of the new reference range. BUN 17 8 - 23 mg/dL 01/21/2025 9:36 AM CDT [facility] CREATININE 0.88 0.70 - 1.20 mg/dL 01/21/2025 9:36 AM T [facility] BUN/CREAT RATIO 19 10 - 20 9:36 AM T [facility] eGFR 90(L) >90 mL/min/1.7 3m2 01/21/2025 9:36 AM T [facility] Comment:As of 2021, eG FR is calculated by the CKD-EPI creatinine equation without race adjustment. eGFR can be influenced by muscle mass, exercise, and diet. The reported eGFR is an estimation only and is only applicable if the renal function is stable. Blood BLOOD SPECIMEN / Unknown Butterfly / Unknown 01/21/2025 7:25 AM CDT 01/21/2025 9:12 AM CDT Carmenza Quiroz NP CHEMISTRY Final Resul t Performing Organization Address [facility] de Phone Number [facility] [address] [place] [address] * TSH (01/14/2025 7:40 AM CDT) TSH 2.69 0.27 - 4.20 uIU/mL 01/14/2025 9:16 AM CDT [facility] Blood BLOOD SPECIMEN / Unknown Butterfly / Unknown 01/14/2025 7:40 AM CDT 01/14/2025 8:42 AM CDT Narrative [facility] - 01/14/2025 9:16 AM CDT In Adults, TSH values between 5.00 and 10.00 uIU/ml do not necessarily indicate the presence of Hypothyroidism. Correlation with clinical findings such as presence of goiter and/or Thyroperoxidase (TPO) Antibody may be helpful. For more information please refer to LUIGI 2004; 291: 228-238. Carmenza Quiroz NP CHEMISTRY Final Resul t Performing Organization Address [facility] Co de Phone Number [facility] [address] [place] [address] * (ABNORMAL) C-REACTIVE PROTEIN (01/14/2025 7:40 AM CDT) Only the most recent of2 resultswithin the time period is included. C-REACTIVE PROTEIN 8.8(H) <0.5 mg/dL 01/14/2025 9:16 AM CDT [facility] Blood BLOOD SPECIMEN / Unknown Butterfly / Unknown 01/14/2025 7:40 AM CDT 01/14/2025 8:42 AM CDT us Carmenza Quiroz NP CHEMISTRY Final Resul t Performing Organization Address [facility]/ZIP Co de Phone Number [facility] [address] [place] [address] * ALT (SGPT) (01/14/2025 7:40 AM CDT) ALT (SGPT) 19 10 - 50 IU/L 01/14/2025 9:16 AM CDT [facility] Blood BLOOD SPECIMEN / Unknown Butterfly / Unknown 01/14/2025 7:40 AM CDT 01/14/2025 8:42 AM CDT us Carmenza Quiroz NP CHEMISTRY Final Resul t Performing Organization Address [facility]/ZIP Co de Phone Number [facility] [address] [place] [address] * ALK PHOSPHATASE (01/14/2025 7:40 AM CDT) ALK PHOSPHATASE 85 40 - 129 IU/L 01/14/2025 9:16 AM CDT [facility] Blood BLOOD SPECIMEN / Unknown Butterfly / Unknown 01/14/2025 7:40 AM CDT 01/14/2025 8:42 AM CDT Carmenza Quiroz NP CHEMISTRY Final Resul t Performing Organization Address City/[facility]/ZIP Co de Phone Number [facility] [address] [place] [address] * (ABNORMAL) PRO-BNP (01/14/2025 7:40 AM CDT) PRO-BNP 1,544(H) <450 pg/mL 01/14/2025 9:19 AM CDT [facility] Blood BLOOD SPECIMEN / Unknown Butterfly / Unknown 01/14/2025 7:40 AM CDT 01/14/2025 8:42 AM CDT [facility] - 01/14/2025 9:19 AM CDT The following cut-points have been suggested for the use of proBNP for the diagnostic evaluation of heart failure (HF) in patient with acute dyspnea. Patients with eGFR >= 60 Diagnosis (rule in CHF) <50 Years Old 450 pg/mL 50 - 75 Years Old 900 pg/mL >75 Years Old 1800 pg/mL Exclusion (rule out CHF) Age Independent 300 pg/mL A cutoff of 1200 pg/mL for patients with an eGFR <60 yields a diagnostic sensitivity of 89% and specificity of 72% for acute congestive heart failure. us Carmenza Quiroz NP SEND OUTS Final Resul t Performing Organization Address [facility]/ZIP Co de Phone Number [facility] [address] [place] [address] * (ABNORMAL) RED CELL MORPHOLOGY (12/31/2024 7:10 AM CDT) ELLIPTOCYTES Few 12/31/2024 10:44 AM CDT [facility] POLYCHROMASIA Slight 12/31/2024 10:44 AM CDT [facility] TEARDROP CELLS Few 12/31/2024 10:44 AM CDT [facility] RBC COMMENT Present(A) RBC morphology appears normal, RBC morphology within normal limits for newborns. 12/31/2024 10:44 AM CDT [facility] *BASOPHILIC STIPPLING Present 12/31/2024 10:44 AM CDT [facility] Blood BLOOD SPECIMEN / Unknown Butterfly / Unknown 12/31/2024 7:10 AM CDT 12/31/2024 9:36 AM CDT us Carmenza Quiroz NP HEMATOLOGY Final Resul t Performing Organization Address City/[facility]/ZIP Co de Phone Number [facility] [address] [place] [address] * PLATELET ESTIMATE (12/31/2024 7:10 AM CDT) PLATELET ESTIMATE Adequate Adequate, No estimate 12/31/2024 10:44 AM CDT [facility] Blood BLOOD SPECIMEN / Unknown Butterfly / Unknown 12/31/2024 7:10 AM CDT 12/31/2024 9:36 AM CDT us Carmenza Quiroz NP HEMATOLOGY Final Resul t Performing Organization Address [facility]/ZIP Co de Phone Number [facility] [address] [place] [address] * LAB TRACKING EVENT (12/13/2024 3:58 PM CDT) Other (Other) Client Collect / Unknown 12/13/2024 3:58 PM CDT 12/13/2024 10:08 PM CDT us Sue Bailey MD LAB BILL ONLY Final Re sult [facility] [address] [place] [address], [place] * PATH TISSUE EXAM (12/13/2024 3:58 PM CDT) Case Report Pathology Report Case: [id number] Authorizing Provider: Sue Bailey MD Collected: 12/13/2024 1558 Ordering Location: [facility] Received: 12/14/2024 0858 Pathologist: Shay Noland MD Specimen: Left Buttock, left buttock pressure ulcer tissue 12/19/2024 1:42 PM CDT [facility] Final Diagnosis A) SOFT TISSUE, LEFT BUTTOCK, DEBRIDEMENT: Fibroadipose tissue with necrosis and foci of acute inflammation 12/19/2024 1:42 PM CDT [facility] at 1341 CDT Clinical Information Pressure ulcer on the left buttock. 12/19/2024 1:42 PM CDT [facility] Gross Description A) Received in formalin, labeled with the patient's name and L buttock pressure ulcer tissue, is a 7.5 x 5.5 x 3.3 cm aggregate of multiple irregular portions of sandoval-brown, dusky and ragged soft tissue. No lesions or masses are identified. Literacy Consultant sections are submitted in 1 cassette. JKG 12/17/2024 12/19/2024 1:42 PM CDT [facility] Microscopic Description The final diagnosis is based on microscopic examination of appropriate sections of all specimens. 12/19/2024 1:42 PM CDT [facility] Additional Information Interpreted at [facility] - [address], [place] [address] 12/19/2024 1:42 PM CDT [facility] Other (Left Buttock) 12/13/2024 3:58 PM CDT 12/14/2024 8:58 AM CDT us Sue Bailey MD PATHOLOGY/CYTOLOGY Final Result [facility] [address] [place] [address], * VITAMIN B12 (12/10/2024 7:05 AM CDT) [facility] VITAMIN B12 510 232 - 1,245 pg/mL 12/10/2024 12:14 PM CDT [facility] Blood BLOOD SPECIMEN / Unknown Venipuncture / Unknown 12/10/2024 7:05 AM CDT 12/10/2024 7:47 AM CDT Narrative [facility] - 12/10/2024 12:14 PM CDT Biotin supplements may cause clinically significant interference for this test assay. If interference is suspected, it is strongly recommended that biotin is discontinued for at least one week prior to retesting. Carmenza Quiroz CENTER DIRECTOR LEAD TEACHER CHEMISTRY Final Resul t [facility] [address] [place] [address], [place] * CT CHEST PE STUDY (11/14/2024 9:06 AM CDT) Anatomical Region Laterality Modality CHEST, THORAX, HEART Computed To mography Pablo Vo [facility] CT Fin al Result * SCAN-RADIOLOGY REPORT (11/14/2024 12:00 AM CDT) Anatomical Region Laterality Modality Computed Tomogra phy Scanner OTHER Final Result * (ABNORMAL) HEMOGLOBIN A1C (10/29/2024 7:37 AM CDT) [facility] HEMOGLOBIN A1C SCREENING 7.4(H) <=6.4 % 10/29/2024 8:39 AM CDT [facility] Blood BLOOD SPECIMEN / Unknown Butterfly / Unknown 10/29/2024 7:37 AM CDT 10/29/2024 8:31 AM CDT Narrative [facility] - 10/29/2024 8:39 AM CDT (<5.7%) Normal (5.7% to 6.4%) Indicates prediabetes (>=6.5%) Confirms diabetes Falsely low levels may be seen with: Recent Transfusion, Recent Significant Blood Loss, Hemolytic Diseases, or Falsely elevated levels may be seen with: Untreated Anemias, Splenectomy us Carmenza Quiroz CENTER DIRECTOR LEAD TEACHER CHEMISTRY Final Resul t [facility] [address] [place] [address] from Last 3 Months Insurance [employer] [facility] [employer] [facility] Care Teams Home Economics Teacher Relationship Specialty Start Date End Date Clinic, No Pcp Or . PCP - General 07/31/23 Birdie Taveras RN [address] [id number] Route Driver - [facility] [place] Registered Nurse 07/24/23 Karrie Singer RN [address] [address] Route Driver [place] [facility] [place] Registered Nurse 07/24/23
--- OUTSIDE RECORDS SUMMARY | 2025-01-28 09:17 | XMS_ITS | Encounter Summary ---
Author Organization [facility] Address [address] [place] [address] Care Team Providers Care Studio Grip Name Role Phone Jeff Reyes M.D. Primary Care Provider [phone] Encounter Details Date Type Department Care Team (Late st Contact Info) Description 01/21/2025 Clinical Communication Department of Oncology in [place], [place] [address] [place] [phone] Pablo Vo M.D. [address] [place] [address] Social History Tobacco Use Types Packs/Day Years Used Date Smoking Tobacco: Former Cigarettes Q uit: 1977 Passive Smoke Exposure: Never Alcohol Use Standard Drinks/Week Comments Not Currently 1 (1 standard drink = 0.6 oz pur e alcohol) [facility] Utilities Answer Date Recorded In the past 12 months has [employer], gas, oil, or water [employer] threatened to shut off services in your [...] your living situation today? I have a [facility] place to live 11/08/2024 Education Answer Date Recorded What is the highest level of school you have completed or the highest degree you have received? 12th grade 10/18/2022 Sex and Gender Information Value Date Recorded Sex Assigned at Male 06/26/2018 4:20 PM GLASS MECHANIC Legal Sex Male 3:33 AM GLASS MECHANIC Gender Identity Not on file Sexual Orientation Not on file documented as of this encounter Miscellaneous Notes * Telephone Encounter - Nadia Robertson RRoderick. - 01/21/2025 2:02 PM CDT Left message for Bekah. Spoke with CT scheduling/techs. There is no different process for a patient scheduled for a CT scanwith a wound vac. Patient is able to have CT completed as scheduled. documented in this encounter Plan of Treatment Upcoming Encounters Date Type Department Care Team (Late st Contact Info) Description 02/06/2025 9:00 AM CDT Appointment Department of Radiology in [place], [place] [address] [place] [address] Pablo Vo M.D. [address] [place] [phone] 02/10/2025 1:30 PM CDT Appointment Department of Radiology in [place], [place] [address] [place] [phone] Anuel Nunn M.D. [address] [place] [phone] Rosenda Pedroza, EUSEBIO, C.N.P., M.S.N. [address] [place] [phone] 02/21/2025 11:00 AM CDT Virtual Visit Department of Oncology in [place], [place] [address] [place] [phone] Pablo Vo M.D. [address] [place] [phone] documented as of this encounter Visit Diagnoses Not on filedocumented in this encounter Additional Health Concerns Assessment Noted Time PHQ-9 Depression Total Score: 10 018 11:00 AM CDT documented as of this encounter Care Teams Studio Grip Relationship Specialty Start Date End Date Jeff Reyes M.D. [address] [place] [phone] PCP - General 03/14/24 documented as of this encounter
--- OUTSIDE RECORDS SUMMARY | 2025-01-28 09:17 | XMS_ITS | Encounter Summary ---
Author Organization [facility] Address [address] [place] [address] Care Team Providers Care Manager Clinic Name Role Phone Jeff Reyes M.D. Primary Care Provider [phone] Reason for Referral * MRI/CAT/PET Scan (Routine) - Authorized Specialty Diagnoses / Procedures Referred By Jono donohue Referred To Contact Radiology Diagnoses Embolus Pulmonary (HCC) Procedures CT Chest Angiogram with IV Contrast Pablo Vo M.D. [address] [place] [address] Phone: tel: fax: [facility] Region Referral ID Status Reason Start Date Expiration Date V isits Requested Visits Authorized [id number] Authorized 11/14/2024 02/14/2026 1 1 Encounter Details Date Type Department Care Team (Late st Contact Info) Description 11/14/2024 Results Follow-Up Department of Oncology in [place], [place] [address] [place] [address] Pablo Vo M.D. [address] [place] [phone] CT Chest Angiogram and Pulmonary Arteries with IV Contrast Social History Tobacco Use Types Packs/Day Years Used Date Smoking Tobacco: Former Cigarettes Q uit: 1977 Passive Smoke Exposure: Never Alcohol Use Standard Drinks/Week Comments Not Currently 1 (1 standard drink = 0.6 oz pur e alcohol) [facility] Utilities Answer Date Recorded In [...] your [facility] situation today[facility] 11/08/2024 Education Answer Date Recorded What is the highest level of school you have completed or the highest degree you have received? 12th grade 10/18/2022 Sex and Gender Information Value Date Recorded Sex Assigned at Male 06/26/2018 4:20 PM SURGICAL INSTRUMENT REPAIR SPECIALIST Legal Sex Male 3:33 AM SURGICAL INSTRUMENT REPAIR SPECIALIST Gender Identity Not on file Sexual Orientation Not on file documented as of this encounter Plan of Treatment Upcoming Encounters Date Type Department Care Team (Late st Contact Info) Description 02/06/2025 9:00 AM CDT Appointment Department of Radiology in [place], [place] [address] [place] [address] Pablo Vo M.D. [address] [place] [phone] 02/10/2025 1:30 PM CDT Appointment Department of Radiology in [place], [place] [address] [place] [phone] Anuel Nunn M.D. [facility] [place] [phone] Rosenda Pedroza, EUSEBIO, C.N.P., M.S.N. [address] [place] [phone] 02/21/2025 11:00 AM CDT Virtual Visit Department of Oncology in [place], [place] [address] [place] [phone] Pablo Vo M.D. [address] [place] [phone] Scheduled Orders Name Type Priority Associated Diagnoses [...] documented as of this encounter Care Teams Manager Clinic Relationship Specialty Start Date End Date Jeff Reyes M.D. [address] [place] [phone] PCP - General 03/14/24 documented as of this encounter
--- OUTSIDE RECORDS SUMMARY | 2025-01-28 09:17 | XMS_ITS | Encounter Summary ---
Author Organization [facility] Address [address] [place] [address] Care Team Providers Care Excavating Contractor Name Role Phone Jeff Reyes M.D. Primary Care Provider [phone] Encounter Details Date Type Department Care Team (Late st Contact Info) Description 12/17/2024 Orders Only [facility] S[facility]F [facility] [address] [place] [phone] Jeff Reyes M.D. [address] [place] [address] Screening Cancer Colon Social History Tobacco Use Types Packs/Day Years Used Date Smoking Tobacco: Former Cigarettes Q uit: 1977 Passive Smoke Exposure: Never Alcohol Use Standard Drinks/Week Comments Not Currently 1 (1 standard drink = 0.6 oz pur e alcohol) [facility] Utilities Answer Date Recorded In the past 12 months has [employer], gas, oil, or water [employer] threatened to shut off services in your [...] [facility] place to live 11/08/2024 Education Answer Date Recorded What is the highest level of school you have completed or the highest degree you have received? 12th grade 10/18/2022 Sex and Gender Information Value Date Recorded Sex Assigned at Male 06/26/2018 4:20 PM SWEEPER DRIVER Legal Sex Male 3:33 AM SWEEPER DRIVER Gender Identity Not on file Sexual Orientation Not on file documented as of this encounter Plan of Treatment Upcoming Encounters Date Type Department Care Team (Late st Contact Info) Description 02/06/2025 9:00 AM CDT Appointment Department of Radiology in [place], [place] [address] [place] [address] Pablo Vo M.D. [address] [place] [phone] 02/10/2025 1:30 PM CDT Appointment Department of Radiology in [place], [place] [address] [place] [phone] Anuel Nunn M.D. [address] [place] [phone] Rosenda Pedroza, EUSEBIO, C.N.P., M.S.N. [address] [place] [address] 02/21/2025 11:00 AM CDT Virtual Visit Department of Oncology in [place], [place] [address] [place] [phone] Pablo Vo M.D. [address] [place] [phone] documented as of this encounter Visit Diagnoses Diagnosis Screening Cancer Colon documented in this encounter Additional Health Concerns Assessment Noted Time PHQ-9 Depression Total Score: 10 018 11:00 AM CDT documented as of this encounter Care Teams Excavating Contractor Relationship Specialty Start Date End Date Jeff Reyes M.D. NPChandan: [phone] [address] [place] [address] PCP - General 03/14/24 documented as of this encounter
--- OUTSIDE RECORDS SUMMARY | 2025-01-28 09:18 | XMS_ITS | Encounter Summary ---
Author Organization [facility] Address [address] [place] [address] Care Team Providers Care Melter Supervisor Oxygen Furnace Name Role Phone Jeff Reyes M.D. Primary Care Provider [phone] Encounter Details Date Type Department Care Team (Latest Contact Info) Description 08/07/2024 Intake [facility] Social History Tobacco Use Types Packs/Day Years Used Date Smoking Tobacco: Former Cigarettes Q uit: 1977 Passive Smoke Exposure: Never Alcohol Use Standard Drinks/Week Comments Not Currently 1 (1 standard drink = 0.6 oz pur e alcohol) [facility] Utilities Answer Date Recorded In the past 12 months has e [employer], gas, oil, or water [employer] threatened to shut off services in your [...] things needed for daily living? No 08/08/2024 Housing Stability Answer Date Recorded What is your living situation today? I have a [facility] place to live 08/08/2024 Education Answer Date Recorded What is the highest level of school you have completed or the highest degree you have received? 12th grade 10/18/2022 Sex and Gender Information Value Date Recorded Sex Assigned at Male 06/26/2018 4:20 PM ROLLER MAKER Legal Sex Male 3:33 AM ROLLER MAKER Gender Identity Not on file Sexual Orientation Not on file documented as of this encounter Plan of Treatment Upcoming Encounters Date Type Department Care Team (Late st Contact Info) Description 02/06/2025 9:00 AM CDT Appointment Department of Radiology in [place], [place] [address] [place] [address] Pablo Vo M.D. [address] [place] [address] 02/10/2025 1:30 PM CDT Appointment Department of Radiology in [place], [place] [address] [place] [address] Anuel Nunn M.D. [address] [place] [address] Rosenda Pedroza APRN, C.N.P., M.S.N. [address] [place] [address] 02/21/2025 11:00 AM CDT Virtual Visit Department of Oncology in [place], [place] [address] [place] [phone] Pablo Vo M.D. [address] [place] [phone] documented as of this encounter Visit Diagnoses Not on filedocumented in this encounter Additional Health Concerns Infection Onset Date Last Indicated Resolved Time MDR GNB 10/24/2024 10/24/2024 10/27/2024 6:33 AM CDT Assessment Noted Time PHQ-9 Depression Total Score: 10 018 11:00 AM CDT documented as of this encounter Care Teams Melter Supervisor Oxygen Furnace Relationship Specialty Start Date End Date Jeff Reyes M.D. [address] [place] [address] PCP - General 03/14/24 documented as of this encounter
--- OUTSIDE RECORDS SUMMARY | 2025-01-28 09:18 | XMS_ITS | Clinical Summary ---
Author Organization [facility] Address [address] [place] [address] Care Team Providers Care Mailhouse Operator Name Role Phone Jeff Reyes M.D. Primary Care Provider [phone] Source Comments Patient records contain information from all sites at [facility]. For routine questions regarding patient records, call [phone] during business hours, M-F 8:00 AM - 5:00 PM Central Time. 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 Assessment & Plan (07/04/2018 2:56 PM ELEMENTARY SCHOOL TUTOR): Continue I&O catheterization as needed Multiple Sclerosis 06/03/2003 Assessment & Plan (07/04/2018 3:32 PM ELEMENTARY SCHOOL TUTOR): -Continue to follow with Neurology for further recommendations Resolved Problems Problem Noted Date Diagnosed Date Resolved Date Sprain Ankle Initial Right 11/08/2022 0 11/09/2022 Obesity Unspecified 03/21/2019 11/10/19 23 Urinary Tract Infection Site Not Specified 07/04/2018 11/09/2022 Overview (07/04/2018): Completed ciprofloxacin 500 mg b.i.d. for an antibiotic course of 14 days (last dose on 06/08/2018) Assessment & Plan (07/04/2018 3:31 PM ELEMENTARY SCHOOL TUTOR): -Patient denies any urinary symptoms today on exam. -Continue care cranberry 450 mg daily Failure Renal Acute (Acute Kidney Injury) 05/27/2018 10/19/2022 Non-ST Elevation Myocardial Infarction 05/26/2018 10/23/2019 Assessment & Plan (07/04/2018 10:14 AM ELEMENTARY SCHOOL TUTOR): 1. Continue aspirin 81 mg daily 2. [...] Encounters Date Type Department Care Team Description 01/23/2025 5:26 PM CDT - 01/24/2025 12:38 AM CDT Emergency [facility] Emergency Department [address] [place] [address] Ollei Walters M.D. 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 12/17/2024 Orders Only [facility] SELF [facility] [address] [place] [id number] Jeff Reyes M.D. Screening Cancer Colon 12/03/2024 Orders Only [facility] SELF TEST [facility] [address] [place] [address] Jeff Reyes M.D. Screening Cancer Colon 11/14/2024 8:45 AM CDT - 11/14/2024 11:59 PM CDT Hospital Encounter Department of Radiology in [place], [place] [address] [place] [address] Pablo Vo M.D. Embolus Pulmonary (HCC); Acute Embolism And Thrombosis Of Other Specified Deep Vein Of Lower Extremity Bilateral (HCC) Discharge Disposition: Home or Self Care 11/14/2024 8:23 AM CDT - 11/14/2024 8:44 AM CDT Hospital Encounter Department of Radiology in [place], [place] [address] [place] [address] Pablo Vo M.D. Embolus Pulmonary (HCC); Acute Embolism And Thrombosis Of Other Specified Deep Vein Of Lower Extremity Bilateral (HCC) Discharge Disposition: Home or Self Care 11/14/2024 Results Follow-Up Department of Oncology in [place], [place] [address] [place] [phone] Chest Angiogram and Pulmonary Arteries with IV Contrast 11/12/2024 10:26 AM CDT - 11/12/2024 11:59 PM CDT Hospital Encounter Department of Laboratory Medicine in [address] [address] Pablo Vo M.D. Embolus Pulmonary (HCC); Acute Embolism And Thrombosis Of Other Specified Deep Vein Of Lower Extremity Bilateral (HCC) Discharge Disposition: Home or Self Care 11/12/2024 9:00 AM CDT Comprehensive Visit Department of Oncology in [address] [address] Pablo Vo M.D. Embolus Pulmonary (HCC) (Primary Dx); Acute Embolism And Thrombosis Of Other Specified Deep Vein Of Lower Extremity Bilateral (HCC); Paraplegia (HCC); Multiple Sclerosis (HCC); Body Mass Index 34.0 To 34.9 Adult 11/12/2024 Clinical Communication Department of Family Medicine, [facility], in [place] [address] [place] [address] Jeff Reyes M.D. 11/08/2024 10:45 AM CDT Virtual Visit Department of Cardiovascular Diseases in [address] [address] Thaddeus Li M.D. Hyperlipidemia On Treatment (Primary Dx); Atherosclerotic Heart Disease Of [place] Coronary Artery Without Angina Pectoris; Preoperative Examination Cardiovascular; Embolus Pulmonary (HCC) 11/06/2024 8:22 AM CDT - 11/06/2024 11:59 PM CDT Hospital Encounter Department of Cardiovascular Diseases in [place], [place] [address] [place] [address] Thaddeus Li M.D. Cholecystitis; Preoperative Examination Cardiovascular; Hyperlipidemia On Treatment; Atherosclerotic Heart Disease Of [place] Coronary Artery Without Angina Pectoris Discharge Disposition: Home or Self Care 11/05/2024 9:24 AM CDT - 11/05/2024 11:59 PM CDT Hospital Encounter Department of Laboratory Medicine in [place], [place] [address] [place] [address] Thaddeus Li M.D. Cholecystitis; Preoperative Examination Cardiovascular; Hyperlipidemia On Treatment; Atherosclerotic Heart Disease Of [place] Coronary Artery Without Angina Pectoris Discharge Disposition: Home or Self Care 11/05/2024 8:45 AM CDT Comprehensive Visit Department of Cardiovascular Diseases in [place], [place] [address] [place] [phone] Thaddeus Li M.D. Preoperative Examination Cardiovascular (Primary Dx); Cholecystitis; Hyperlipidemia On Treatment; Atherosclerotic Heart Disease Of [place] Coronary Artery Without Angina Pectoris 11/05/2024 7:35 AM CDT - 11/05/2024 9:23 AM CDT Hospital Encounter Department of Laboratory Medicine in [place], [place] [address] [place] [phone] Roland Benson D.O. Cholecystitis Discharge Disposition: Home or Self Care from [...] drink = 0.6 oz pur e alcohol) [facility] Utilities Answer Date Recorded In the past 12 months has e electric, gas, oil, or water [employer] threatened to shut off services in your [...] Sex Assigned at Male 06/26/2018 4:20 PM ELEMENTARY SCHOOL TUTOR Legal Sex Male 3:33 AM ELEMENTARY SCHOOL TUTOR Gender Identity Not on file Sexual [...] Body Mass Index 34.23 09/15/2024 3:21 PM ELEMENTARY SCHOOL TUTOR Plan of Treatment Upcoming Encounters Date Type Department Care Team (Late st Contact Info) Description 02/06/2025 9:00 AM CDT Appointment Department of Radiology in [place], [place] [address] [place] [address] Pablo Vo M.D. [address] [place] [phone] 02/10/2025 1:30 PM CDT Appointment Department of Radiology in [place], [place] [address] [place] [phone] Anuel Nunn M.D. [address] [place] [phone] Rosenda Pedroza, EUSEBIO, C.N.P., M.S.N. [address] [place] [phone] 02/21/2025 11:00 AM CDT Virtual Visit Department of Oncology in [place], [place] [address] [facility] [place] [address] Pablo Vo M.D. [address] [facility] [place] [address] Health Maintenance Due Date Last Done Comments [...] exists Visit: Medicare Annual Wellness 02/07/2025 02/07/2024 Influenza Vaccine (#1) 2025 , 05/16/2023, 05/08/2003, Additional history exists Office Visit for Blood Pressure Check / Re-check 11/12/2025 11/12/2024 Creatinine Level (Kidney Function Test) 01/23/2026 01/23/2025, 01/21/2025, 01/14/2025, Additional history exists Potassium Level 01/23/2026 01/23/2025, 07/0 07/2024, 01/14/2025, Additional history exists Sodium Level 01/23/2026 01/23/2025, 07/0 07/2024, 01/14/2025, Additional history exists Fasting Glucose for Diabetes Screening 01/24/2028 01/23/2025, 01/21/2025, 01/14/2025, Additional history exists DTaP,Tdap,and Td Vaccines (3 - Td or Tdap) 04/08/2029 04/08/2019, 08/21/2009, 08/16/1999 Lipid (Cholesterol) Screening 11/05/2029 11/05/2024, 10/25/2021, 04/06/2020, Additional history exists Zoster Vaccines Completed 03/09/2018, 12/22, 08/21/2009 Pneumococcal vaccine (50+ years) Completed 03/21/2019, 04/21/2015, 08/03/2011 RSV vaccine - (32-36 weeks) or 60+ years Completed 05/17/2024 Fall Risk Screen (Annual) Completed 10/24/2024 Abdominal Aortic Aneurysm (AAA) Screen Completed 01/23/2025, 09/15/2024, 09/02/2024, Additional history exists IPV Vaccines Aged Out No longer eligi ble based on patient's age to complete this topic Medical Devices Implanted Type Area Pocket Builder Device Identifier Shelf Expiration Date Model / Serial / Lot Scrw St 24pthrd 8.0x105 - [id number] Implanted:Qty : 1 on 12/15/2022 by Jana Don M.D. at [facility] Hardware e.g. pins/screws/ rods Right: [employer] [id number] / / Scrw Vthrd Fast 7.0x105 - [id number] Implanted:Qty : 2 on 12/15/2022 by Jana Don M.D. at [facility] Hardware e.g. pins/screws/ rods Right: [employer] [id number] / / Washr Flt 1.5x13 - [id number] Implanted:Qty : 4 on 12/15/2022 by Jana Don M.D. at [facility] Hardware e.g. pins/screws/ rods Right: [employer] [id number] / / Procedures Procedure Name Priority Date/Time Associated Diagnosis Comments DIPSTICK, U STAT 01/23/2025 8:37 PM CDT PH, U STAT 01/23/2025 8:37 PM CDT OSMOLALITY, U STAT 01/23/2025 8:37 PM CDT MICROSCOPIC AUTOMATED STAT 01/23/2025 8:37 PM CDT URINALYSIS WITH MICROSCOPIC STAT 01/23/2025 8:37 PM CDT SEDIMENTATION RATE, B STAT 01/23/2025 8:36 PM CDT C-REACTIVE PROTEIN (CRP), S/P STAT 01/23/2025 8:36 PM CDT BACTERIA / BAUTISTA CULTURE, BLOOD STAT 01/23/2025 8:34 PM CDT LACTATE FOR SEPSIS WITH REFLEX STAT 01/23/2025 8:32 PM CDT BACTERIA / BAUTISTA CULTURE, BLOOD STAT 01/23/2025 8:[address] ABDOMEN PELVIS WITH IV CONTRAST RAD - Semiurgent (Fast; most ED patients; some inpatients) 01/23/2025 7:35 PM CDT LACTATE, B STAT 01/23/2025 6:55 PM CDT LIPASE, S/P STAT 01/23/2025 6:55 PM CDT BASIC METABOLIC PANEL, S/P STAT 01/23/2025 6:55 PM CDT CBC WITHOUT DIFFERENTIAL, B STAT 01/23/2025 6:55 PM CDT ECG STAT 01/23/2025 5:18 PM CDT US LOWER EXTREMITY VEINS BILATERAL RAD - [...] Hyperlipidemia On Treatment Atherosclerotic Heart Disease Of [place] Coronary Artery Without Angina Pectoris LIPID PANEL, S Routine 11/05/2024 9:32 AM CDT Cholecystitis Preoperative Examination Cardiovascular Hyperlipidemia On Treatment Atherosclerotic Heart Disease Of [place] Coronary Artery Without Angina Pectoris ECG Routine 11/05/2024 7:43 AM CDT Cholecystitis from Last 3 Months Results * (ABNORMAL) Dipstick, Urine (01/23/2025 8:37 [...] M.D. LAB URINE ORDERABLES Fin al Result [facility] [address] [place] [address], [place] DTL [facility] [address] [place] [address] * Microscopic Automated (01/23/2025 8:37 PM CDT) [...] ORDERABLES Fin al Result Performing Organization Address City/[facility] Co de Phone Number [facility] [address] [place] [address] * pH, Urine (01/23/2025 8:37 PM CDT) [facility] pH, U 5.4 4.5 - 8.0 01/23/2025 9:0 3 PM CDT DT Urine 01/23/2025 8:37 PM CDT 01/23/2025 8:49 PM CDT Chung Mehta M.D. LAB URINE ORDERABLES Fin al Result Performing Organization Address City/[facility]/ZIP Co de Phone Number [facility] [address] [place] [address] * Osmolality, Urine (01/23/2025 8:37 PM CDT) Osmolality, U 409 150 - 1150 mOsm/kg 01/23/2025 9:03 PM CDT DTL Urine 01/23/2025 8:37 PM CDT 01/23/2025 8:49 PM CDT Chung Mehta M.D. LAB URINE ORDERABLES Fin al Result Performing Organization Address [facility] Co de Phone Number [facility] [address] [place], [place] [address] [place] [address] [address] [place] [address] * Urinalysis, with Microscopic: Urine, Catheter (01/23/2025 [...] ORDERABLES Fin al Result Performing Organization Address City/[facility]/ZIP Co de Phone Number [facility] [address] [place] [address], [facility] [address] [place] [address] * (ABNORMAL) Sedimentation Rate (01/23/2025 8:36 PM CDT) Sedimentation Rate, B 109(H) 3 - 28 mm/h 01/23/2025 9:29 PM CDT DTL Blood (Blood, Venous) 01/23/2025 8:36 PM CDT 01/23/2025 8:47 PM CDT Chung Mehta M.D. LAB BLOOD ADD-ON Final R esult Performing Organization Address City/[facility]/ZIP Co de Phone Number [facility] [address] [place] [address], [facility] [address] [place] [address] * (ABNORMAL) CRP (C-Reactive Protein) (01/23/2025 8:36 PM CDT) Pathologist [facility] C-Reactive Protein (CRP), S 124.8(H) <5.0 mg/L 01/23/2025 9:28 PM CDT DTL Blood (Blood, Venous) 01/23/2025 8:36 PM CDT 01/23/2025 9:01 PM CDT Chung Mehta M.D. LAB BLOOD ADD-ON Final R esult Performing Organization Address City/[facility]/ZIP Co de Phone Number [facility] [address] [place], [place] [address] [address] [place] [address] * Lactate for Sepsis with Reflex (01/23/2025 8:32 PM CDT) [facility] Lactate, P 1.3 0.5 - 2.2 mmol/L 01/23/2025 8:59 PM CDT [facility]MA Blood (Blood, Venous) 01/23/2025 8:32 PM CDT 01/23/2025 8:44 PM CDT Chung Mehta M.D. LAB BLOOD NON ADD-ON Fin al Result Performing Organization Address City/[facility]/ZIP Co de Phone Number [facility] [address] [place] [address], [facility] STMA [facility] [address] [place] [address] * CT Abdomen Pelvis with IV Contrast [...] evaluation with MRI. 3. Possible chronic cystitis. Ollie Walters M.D. IMG CT PROCEDURES Final Result * Lactate, B (01/23/2025 6:55 PM CDT) Pathologist [facility] Lactate, B 1.2 0.5 - 2.2 mmol/L 01/23/2025 7:05 PM CDT [facility] Blood (Blood, Venous) 01/23/2025 6:55 PM CDT 01/23/2025 7:02 PM CDT Ollie Walters M.D. LAB BLOOD NON ADD-ON Final Res ult [facility] [address] [place] [address], [facility] [address] [place] [address] * (ABNORMAL) CBC without Differential (01/23/2025 6:55 PM CDT) Pathologist [facility] Hemoglobin 10.6(L) 13.2 - 16.6 g/dL 01/23/2025 [...] BLOOD ADD-ON Final Result Performing Organization Address City/[facility]/ZIP Co de Phone Number [facility] [address] STMA [facility] [address] [place] [address] * Lipase (01/23/2025 6:55 PM CDT) Pathologist [facility] Lipase, S 16 13 - 60 U/L 01/23/2025 7: 42 PM CDT DTL Blood (Blood, Venous) 01/23/2025 6:55 PM CDT 01/23/2025 7:25 PM CDT us Ollie aWlters M.D. LAB BLOOD ADD-ON Final Result Performing Organization Address City/[facility]/ZIP Co de Phone Number [facility] [address] DTL [facility] [address] [place] [address] * (ABNORMAL) Basic Metabolic Panel (01/23/2025 6:55 [...] Walters M.D. LAB BLOOD ADD-ON Final Result [facility] [address] [place] [address], [facility] [address] [place] [address] * ECG 12 Lead (01/23/2025 5:18 PM CDT) Only the most recent of2 resultswithin the time period is included. Ventricular Rate ECG/Min 79 BPM MUSE [place] Interval 210 ms MUSE QRSD Interval 96 ms MUSE QT Interval 370 ms MUSE QTC Interval 424 ms MUSE P [place] 42 degrees MUSE R [place] -12 degrees MUSE T Wave [place] 47 degrees MUSE 01/23/2025 5:18 PM [...] change was found Reviewed by VALE Cohen us Ollie Walters M.D. ECG ORDERABLES Final Result MUSE NA * US Lower Extremity Veins Bilateral (11/14/2024 [...] and management can be found on the [employer] site. Link [email or web address]/[email or web address] Procedure Note Codey Saavedra M.D. - 11/14/2024 [...] thrombosis and management can be found on theAskMayoExpert site. [email or web address] IMPRESSION: Negative for acute DVT. [...] Vo M.D. LAB BLOOD ADD-ON Final Result [facility] [address], [place] [address], [place] OWAT [facility] [place] [address] [address] * ECHO STRESS 2D WITH COLOR, DOPPLER [...] per Echocardiography Contrast Administration Protocol Reference Document [id number] Rev 11/04/2021. Patient met an inclusion criterion [...] administered per EchocardiographyContrast Administration Protocol Reference Document [id number] Rev11/04/2021. Patient met an inclusion criterion and [...] equation. Cholesterol, HDL 36(L) >=40 mg/dL 11/06/19 25 10:02 AM CDT OWAT Cholesterol, Non-HDL, Calculated [...] Li M.D. LAB BLOOD ADD-ON Final Result [facility] [address] [place] [address], [facility] OWAT [facility] [place] [address] [place] [address] from Last 3 Months Insurance MEDICA Advance Directives For more information, please contact: [phone] Documents on File Type Date Recorded Patient Quality Improvement Manager Expl anation Advance Directives 08/08/2024 6:58 AM [...] Answer Comments Full Code: Discussed Care Teams Mailhouse Operator Relationship Specialty Start Date End Date Jeff Reyes M.D. [address] [place] [address] PCP - General 03/14/24
--- OUTSIDE RECORDS SUMMARY | 2025-01-28 09:19 | XMS_ITS | Patient Health Record ---
Author Organization [facility] Address [address] [place] [address] Care Team Providers Care Roller Print Tender Name Role Phone Rubén Paez MD Primary Care Provider Melody Michael [place] Unavailable [phone] Reason For Referral No Information Social History Tobacco Use: Social History Observation Description Date Details (start date - stop date) Former Smoker NA - NA Tobacco Use/Smoking Question Answer Notes Are you a former smoker Section Notes: FAMILY HISTORY: HISTORY OF FAMILY PSYCH: Problems Problem Type SNOMED Code ICD Code Onset Dates Problem Status W/U Status Risk Notes Problem Tinea unguium (839286580) Tinea unguium (B35.1) Active confirmed Problem 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 (486332719) 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 confirmed Problem 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 Problem Pressure injury of right buttock stage III (disorder) (21930318208175 ) Pressure ulcer of right buttock, stage 3 (L89.313) Active confirmed Problem Pressure injury of right heel stage IV (disorder) (19511021457549 ) Pressure ulcer of right heel, stage 4 (L89.614) Active confirmed Plan Of Treatment No Information Insurance Providers Payer Name Payer Address Payer Phone Subscriber Number Group Number Insured Name Patient Relationship to Insured Coverage Start Date Coverage End Date [employer] [id number] (Government Programs) [address] [address] [place], [place] [id number] Ren Ramirez Self - patient is the insured 7 [facility] Government Services/Med icare [address] [place] [address] [id number] Ren Ramirez Self - patient is the insured 3
--- NOTE | 2025-01-28 10:17 | CRLHL7_ITS ---
For Patients: As a result of the Century Cures Act, medical imaging exams and procedure reports are released immediately into your electronic medical record. You may view this report before your referring provider. If you have questions, please contact your health care provider. INDICATION: Vomiting TECHNIQUE: Axial images were obtained from the diaphragm to the pubic symphysis. Reformats were obtained in the coronal and sagittal plane. IV Contrast: 118 cc Isovue 370 Oral Contrast: None COMPARISON: Abdomen and pelvis CT 01/03/2025 FINDINGS: Lower chest: Discoid atelectasis with patchy ground-glass opacity in the right lower lobe (3, 6). Liver: Decreased density of the liver diffusely with stable hypodense lesions compared to the study of 1 month prior. Largest is at the dome of the liver measuring 6.2 centimeters. Gallbladder and bile ducts: Status post cholecystostomy tube. Gallbladder is contracted with some gallbladder wall thickening and mild adjacent fat stranding, similar to the prior exam. Spleen: Unremarkable. Normal in size without mass. Pancreas: Pancreatic atrophy. Adrenal glands: Unremarkable. No nodules. Kidneys: Symmetric renal enhancement without hydronephrosis. Bilateral renal hypodense lesions as well as a hyperdense 14 millimeter lesion extending exophytically from the left kidney laterally as well as a hypodense lesion with prominent rim at the superior pole of left kidney measuring 9 millimeters. These could represent complex cysts or solid/partially solid renal masses but are stable from the prior exam Vasculature: Atherosclerosis without abdominal aortic aneurysm. GI tract: The stomach is decompressed. No dilated loops of large or small intestine. Unremarkable appendix. Eddie hepatis lymph nodes measure up to 12 millimeters in short axis. Pelvis: Bladder decompressed with Eason catheter present. Decubitus ulcer redemonstrated extending to the level of the left ischium with associated bony sclerosis. Interval development of decubitus ulcer adjacent to the left sacroiliac joint extending near the level of the bone without definite evidence of osteomyelitis. Bones: Status post pin fixation of the right proximal femur. Degenerative disc disease L5/S1 with erosive changes redemonstrated at the anteroinferior endplate of L5 which is similar to the prior exam. IMPRESSION: 1. Ground-glass opacities in the right lower lobe consistent with subsegmental atelectasis versus viral pneumonia. 2. New decubitus ulcer near the level left sacroiliac joint extending to the margin of the ilium although without CT evidence of osteomyelitis. No drainable abscess seen. 3. Prior large decubitus ulcer redemonstrated extending to the left ischium with ischial sclerosis suggesting chronic osteomyelitis. 4. Cholecystostomy tube with tip in the gallbladder with decompression of the gallbladder. 5. Other incidental findings as detailed above. Please note that all CT scans at this facility use dose modulation, iterative reconstruction, and/or weight-based dosing when appropriate to reduce radiation dose to as low as reasonably achievable. Dictated by Amandeep Pena MD @ 01/28/2025 11:38:35 AM (Electronically Signed)
--- NOTE | 2025-01-28 10:21 | ED.NAVMDI ---
HPI - Nausea/Vomiting/Diarrhea General Chief complaint: Nausea/Vomiting Stated complaint: weackness Time Seen by Provider: 01/28/25 10:10 History of Present Illness HPI Narrative: This 75-year-old male resides at [facility] and has several chronic conditions. He is sent here because a nurse was stated that he continues to vomit bile. The nurse states that she cannot have him there when he is full code and has vomiting. I did speak with the nurse who states that vomitus was more orange in color. The patient was at a [facility] few days ago and had a workup there. This did not include CT imaging. The patient does not complain of any pain. He does have chronic conditions including MS, paraplegia, morbid obesity, neurogenic bladder, pressure ulcers, rheumatoid arthritis, reflux esophagitis, type 2 diabetes, history of pulmonary embolism on Eliquis. Related Data Home Medications ?Medication ?Instructions ?Recorded ?Confirmed acetaminophen 500 mg tablet 1,000 mg PO TID 08/07/24 01/28/25 calcium carbonate (Zachary-Gest 400 mg PO BID 08/07/24 01/28/25 Antacid) cholecalciferol (vitamin D3) 25 25 mcg PO DAILY 08/07/24 01/28/25 mcg (1,000 unit) tablet (Vitamin D3) furosemide 40 mg tablet 40 mg PO DAILY 08/07/24 01/28/25 lisinopril 40 mg tablet 40 mg PO DAILY 08/07/24 01/28/25 metoprolol succinate 100 mg 100 mg PO DAILY 08/07/24 01/28/25 tablet,extended release 24 hr pantoprazole 40 mg tablet,delayed 40 mg PO BID 08/07/24 01/28/25 release polyethylene glycol 3350 17 17 g PO DAILY 08/07/24 01/28/25 gram/dose oral powder potassium chloride 10 mEq 10 meq PO BIDWM 08/07/24 01/28/25 capsule,extended release apixaban 5 mg tablet (Eliquis) 5 mg PO BID 11/16/24 01/28/25 atorvastatin 80 mg tablet 80 mg PO HS 11/16/24 01/28/25 bacitracin 500 unit/gram topical 1 applic topical BID 11/16/24 01/28/25 ointment baclofen 10 mg tablet 10 mg PO BID 11/16/24 01/28/25 diclofenac sodium 1 % topical gel 2 g topical BID PRN 11/16/24 01/28/25 furosemide 20 mg tablet 20 mg PO QPM 11/16/24 01/28/25 latanoprost 0.005 % eye drops 1 drp ophthalmic (eye) HS 11/16/24 01/28/25 ondansetron HCl 4 mg tablet 4 mg PO Q6H PRN 11/16/24 01/28/25 sennosides 8.6 mg-docusate sodium 2 tab-cap PO DAILY 11/16/24 01/28/25 50 mg tablet (Senna Plus) carbamide peroxide 6.5 % ear drops 5 drp otic (ear) Q7D 11/17/24 01/28/25 (Ear Wax Removal Kit) clotrimazole 1 % topical cream 1 applic topical BID 12/12/24 01/28/25 acetic acid 0.25 % irrigation See Rx Instructions .Route BID 01/04/25 01/28/25 solution ferrous sulfate 325 mg (65 mg 325 mg PO Q48H 01/04/25 01/28/25 iron) tablet metformin 500 mg tablet,extended 1,000 mg PO QPM 01/04/25 01/28/25 release 24 hr oxycodone 5 mg tablet 5 mg PO Q6H PRN 01/04/25 01/28/25 sennosides 8.6 mg tablet (senna) 17.2 mg PO DAILY 01/28/25 01/28/25 sodium chloride 0.9 % (flush) (BD ml 01/28/25 PosiFlush Normal Saline 0.9 % injection syringe) Previous Rx's ?Medication ?Instructions ?Recorded allopurinol 100 mg tablet 100 mg PO DAILY #30 tabs 11/19/24 ondansetron HCl 4 mg tablet 4 mg PO Q6H #20 tabs 01/28/25 Allergies Allergy/AdvReac Type Severity Reaction Status Date / Time Haemophilus B polysaccharide Allergy Unknown Verified 01/03/25 14:25 conj w vancomycin Allergy Unknown Verified 01/03/25 16:25 Review of Systems Status of ROS: Reports: 10 or more systems reviewed and unremarkable except as noted in History and below Narrative: Constitutional: No fevers, no weight gain or loss. Eyes: No discharge. No vision changes. HENT: No congestion, no sore throat, no ear pain. Cardiovascular: No chest pain, no palpitations. Respiratory: No shortness of breath, no wheezes, no cough. Gastrointestinal: No abdominal pain. He reports vomiting. Genitourinary: No dysuria, no hematuria. Musculoskeletal: Chronic paraplegia. Multiple sclerosis. Skin: No rashes, no pruritis. Neurological: No new dizziness, weakness, sensory change, speech change. Endo/Heme/Allergies: No bruising or bleeding. No polydipsia. Pysch: no suicidality, no anxiety, no insomnia. All other systems reviewed and are negative. [facility] Medical History (Updated 01/28/25 @ 12:15 by Efrain Pinto MD) Chronic anticoagulation ?Z79.01 - half-way (current) use of anticoagulants (ICD-10) History of pulmonary embolism ?Z86.711 - Personal history of pulmonary embolism (ICD-10) Paraplegia ?G82.20 - Paraplegia, unspecified (ICD-10) Lymphedema ?I89.0 - Lymphedema, not elsewhere classified (ICD-10) Diabetes mellitus ?E11.9 - Type 2 diabetes mellitus without complications (ICD-10) Stage III pressure ulcer of sacral region ?L89.153 - Pressure ulcer of sacral region, stage 3 (ICD-10) Stage III pressure ulcer of buttock ?L89.303 - Pressure ulcer of unspecified buttock, stage 3 (ICD-10) Pressure ulcer of coccygeal region, stage 1 ?L89.151 - Pressure ulcer of sacral region, stage 1 (ICD-10) Neurogenic bowel ?K59.2 - Neurogenic bowel, not elsewhere classified (ICD-10) Hyperuricemia ?E79.0 - Hyperuricemia without signs of inflammatory arthritis and tophaceous disease (ICD-10) Hyperlipidemia ?E78.5 - Hyperlipidemia, unspecified (ICD-10) Hypertension ?I10 - Essential (primary) hypertension (ICD-10) Coronary artery disease ?I25.10 - Atherosclerotic heart disease of [place] coronary artery without angina pectoris (ICD-10) Fracture, intertrochanteric, right femur ?S72.141A - Displaced intertrochanteric fracture of right femur, initial encounter for closed fracture (ICD-10) Sleep apnea ?G47.30 - Sleep apnea, unspecified (ICD-10) Eason catheter in place ?Z97.8 - Presence of other specified devices (ICD-10) Neurogenic bladder ?N31.9 - Neuromuscular dysfunction of bladder, unspecified (ICD-10) Obesity ?E66.9 - Obesity, unspecified (ICD-10) Multiple sclerosis ?G35 - Multiple sclerosis (ICD-10) Surgical History (Updated 01/11/25 @ 00:01 by Serina Morris) H/O insertion of cholecystostomy tube ?Z98.890 - Other specified postprocedural states (ICD-10) Family History Father Coronary artery disease High blood pressure High cholesterol Sleep apnea Social History Narrative: Resident of [facility]. Daughter Malika is healthcare power of employment attorney. Code status is DNR. Remote history of smoking What is your current living situation?: I presently have a place to live Problems where you live: no known problems Problems where you live details: NA In the past 12 months, utilities in danger of being shut off: no In past 12 months, lack of transportation kept you from medical appts, meetings, work, or getting things needed for daily living: no In the past 12 mos, have been you worried that your food would run out before you had money to buy more?: never true In the past 12 mos, the food you bought just didn't last and you didn't have money to buy more?: never true Highest level of school completed/degree received: 12th grade, no diploma Smoking Status: Former smoker What tobacco products do you use: cigarettes Smoking quit date/years: >15 years ago Do you use any of these nicotine containing products: None Second hand tobacco smoke exposure: No How often do you have a drink containing alcohol: never How often do you have six or more drinks on one occasion: Never AUDIT-C Alcohol total score: 0 Non-prescribed substance use: denies use Caffeine: Yes (tea and coffee) How often does anyone, including family, friends and others, physically hurt you: unable to answer How often does anyone, including family, friends and others, insult or talk down to you: unable to answer How often does anyone, including family, friends and others, threaten you with harm: unable to answer How often does anyone, including family, friends and others, scream or curse at you: unable to answer service: No Exam Narrative: Exam Narrative: Constitutional: Well-developed, well-nourished, no acute distress. HEENT: Normocephalic, atraumatic. Neck: Normal range of motion. Nontender. Supple. Heart: Regular. No murmurs. Normal rate. Intact distal pulses. Lungs: Clear to auscultation. No chest discomfort. No wheezes, rhonchi, or rales. Abdomen: Normal bowel sounds. Nontender. No rebound tenderness. Genitalia: Deferred. Back: No midline tenderness. Normal range of motion. Extremities: Paraplegia. Skin: Intact. No rash. Warm. No erythema or pallor. Neurologic: Alert and oriented. Psychiatric: No suicidality. No anxiety or depression. No insomnia. Nursing notes and vitals signs are reviewed. Const: Vital Signs, click to edit/add: Vital Signs - 24 hr 01/28/25 09:30 01/28/25 10:01 01/28/25 10:15 Temperature 97.3 F L Pulse Rate 63 68 Pulse Rate [Pulse Oximeter] 64 Respiratory Rate 12 13 Blood Pressure 127/49 L Blood Pressure [Le ft Upper Arm] 110/47 L Pulse Oximetry 97 95 96 Oxygen Delivery Me thod Room Air 01/28/25 10:32 01/28/25 11:07 Temperature Pulse Rate 61 71 Pulse Rate [Pulse Oximeter] Respiratory Rate 21 12 Blood Pressure 129/50 L 141/50 H Blood Pressure [Le ft Upper Arm] Pulse Oximetry 94 93 Oxygen Delivery Me thod Course Vital Signs Vital signs: Initial Vital Signs Temperature 97.3 F L 01/28/25 09:30 Temperature Source Temporal Artery Scan 01/28/25 09:30 Pulse Rate 64 01/28/25 09:30 Respiratory Rate 12 01/28/25 09:30 Blood Pressure 110/47 L 01/28/25 09:30 Blood Pressure Mean 68 L 01/28/25 09:30 Blood Pressure Position Supine 01/28/25 09:30 Pulse Oximetry 97 01/28/25 09:30 Oxygen Delivery Method Room Air 01/28/25 09:30 Vital Signs Temperature 97.3 F L 01/28/25 09:30 Pulse Rate 64 01/28/25 09:30 Respiratory Rate 12 01/28/25 09:30 Blood Pressure 110/47 L 01/28/25 09:30 Pulse Oximetry 97 01/28/25 09:30 Oxygen Delivery Method Room Air 01/28/25 09:30 Temperature 97.3 F L 01/28/25 09:30 Pulse Rate 71 01/28/25 11:07 Respiratory Rate 12 01/28/25 11:07 Blood Pressure 141/50 H 01/28/25 11:07 Pulse Oximetry 93 01/28/25 11:07 Oxygen Delivery Method Room Air 01/28/25 09:30 MDM - Nausea/Vomiting/Diarrhea MDM Narrative Medical decision making narrative: This patient resides in a fdc and has several chronic conditions including 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 He is sent here because of vomiting. This is not new for him. He was seen in the [facility] several days ago and had a thorough workup with no new findings then. An IV was established here where the patient did receive 4 mg of Zofran. He has not had any further vomiting symptoms. He is not presenting with any complaints currently. Lab results returned also with no new findings as does a CT scan of the abdomen and pelvis. This patient is okay to return home. I did talk with him about his full code status and stated that there may be reason to consider adjusting that as his conditions are not curable. The patient is okay to return back to his current plans at the nursing facility. I did provide a prescription for Zofran. Lab Data Labs: Lab Results 01/28/25 Range/Units 10:43 WBC 10.67 (4.50-11.00) K/uL RBC 4.29 L (4.30-5.90) m/uL Hgb 11.2 L (13.5-17.5) gm/dL Hct 35.6 L (37.0-53.0) % MCV 83 (80-100) fL MCH 26 (26-34) pg MCHC 32 (32-36) gm/dL RDW Coeff of Rey 17.7 H (11.5-15.5) % Plt Count 214 (140-440) K/uL Neut % (Auto) 77.1 H (42.0-72.0) % Lymph % (Auto) 13.2 L (20-44) % Andrews % (Auto) 7.5 (0.0-11.0) % Eos % (Auto) 1.2 (0.0-7.0) % Baso % (Auto) 0.1 (0.0-3.0) % Neut # (Auto) 8.20 H (1.7-7.0) K/uL Lymph # (Auto) 1.40 (0.90-2.90) K/uL Andrews # (Auto) 0.80 (0.00-0.90) K/UL Eos # (Auto) 0.13 (0.00-0.50) K/uL Baso # (Auto) 0.01 (0.00-0.30) K/uL Abs Immat Gran (auto) 0.10 (0.00-0.30) K/uL Imm/Tot Granulo (auto) 0.9 % Sodium 134 L (135-149) mmol/L Potassium 3.7 (3.6-5.1) mmol/L Chloride 97 (96-114) mmol/L Carbon Dioxide 30 (20-32) mmol/L Anion Gap 7 (7-15) mEq/L BUN 22 (7-30) mg/dL Creatinine 0.9 (0.5-1.5) mg/dL Estimated Creat Clear 70.06 Estimated GFR 89 ml/min Glucose 136 H (60-115) mg/dL Calcium 9.0 (8.4-10.6) mg/dL Imaging Data CT scan - abdomen: Radiologist's impression: 1. Ground-glass opacities in the right lower lobe consistent with subsegmental atelectasis versus viral pneumonia. 2. New decubitus ulcer near the level left sacroiliac joint extending to the margin of the ilium although without CT evidence of osteomyelitis. No drainable abscess seen. 3. Prior large decubitus ulcer redemonstrated extending to the left ischium with ischial sclerosis suggesting chronic osteomyelitis. 4. Cholecystostomy tube with tip in the gallbladder with decompression of the gallbladder. 5. Other incidental findings as detailed above. Discharge Plan Discharge Clinical Impression: Vomiting, Paraplegia, Multiple sclerosis Patient Disposition: Xfer SNF Condition: Unchanged Additional Instructions: Continue current plans. Use Zofran as needed and directed for nausea and vomiting symptoms. Follow up with MD for ongoing management or return if worsening. Prescriptions: New ondansetron HCl 4 mg tablet 4 mg PO Q6H Qty: 20 0RF No Action bacitracin 500 unit/gram ointment 1 applic topical BID sennosides-docusate sodium [Senna Plus] 8.6-50 mg tablet 2 tab-cap PO DAILY Patient Comments: plus prn baclofen 10 mg tablet 10 mg PO BID Eliquis 5 mg tablet 5 mg PO BID atorvastatin 80 mg tablet 80 mg PO HS latanoprost 0.005 % drops 1 drp ophthalmic (eye) HS Rx Instructions: BOTH EYES furosemide 20 mg tablet 20 mg PO QPM ondansetron HCl 4 mg tablet 4 mg PO Q6H PRN diclofenac sodium 1 % gel 2 g topical BID PRN Ear Wax Removal Kit 6.5 % drops 5 drp otic (ear) Q7D Patient Comments: every Monday allopurinol 100 mg Tablet 100 mg PO DAILY Qty: 30 0RF clotrimazole 1 % cream 1 applic topical BID sennosides [senna] 8.6 mg tablet 17.2 mg PO DAILY sodium chloride 0.9 % (flush) [BD PosiFlush Normal Saline 0.9] Syringe Patient Comments: [NO ORIGINAL SIG] furosemide 40 mg tablet 40 mg PO DAILY potassium chloride 10 mEq capsule, extended release 10 meq PO BIDWM metoprolol succinate 100 mg tablet extended release 24 hr 100 mg PO DAILY acetaminophen 500 mg tablet 1,000 mg PO TID pantoprazole 40 mg tablet,delayed release (DR/EC) 40 mg PO BID calcium carbonate [Zachary-Gest Antacid] 200 mg calcium (500 mg) tablet,chewable 400 mg PO BID polyethylene glycol 3350 17 gram/dose powder 17 g PO DAILY Patient Comments: plus prn lisinopril 40 mg tablet 40 mg PO DAILY cholecalciferol (vitamin D3) [Vitamin D3] 25 mcg (1,000 unit) tablet 25 mcg PO DAILY acetic acid 0.25 % solution See Rx Instructions .ROUTE BID Patient Comments: [NO ORIGINAL SIG] Rx Instructions: 1 APPLICATION twice a day AND PRN TO BUTTOCK WOUND oxycodone 5 mg tablet 5 mg PO Q6H PRN ferrous sulfate 325 mg (65 mg iron) Tablet 325 mg PO Q48H metformin 500 mg Tablet Extended Release 24 Hr 1,000 mg PO QPM Stand Alone Forms: [facility] Info Instructions
[2025-01-28 11:00] LABS: Hematocrit 35.6 % (37.0-53.0); Hemoglobin* 11.2 gm/dL (13.5-17.5); Immature Granulocytes Abs Auto 0.10 K/uL (0.00-0.30); Immature Granulocytes Pct Auto 0.9 %; Mean Corpuscular HGB Conc 32 gm/dL (32-36); Mean Corpuscular Hemoglobin 26 pg (26-34); Mean Corpuscular Volume 83 fL (80-100); RDW Coefficient of Variation % 17.7 % (11.5-15.5); Red Blood Count 4.29 m/uL (4.30-5.90); White Blood Count* 10.67 K/uL (4.50-11.00)
[2025-01-28 11:03] LABS: Lymphocytes Absolute Auto 1.40 K/uL (0.90-2.90); Slide Review Reflex No
[2025-01-28 11:13] LABS: Chloride* 97 mmol/L (96-114); Potassium* 3.7 mmol/L (3.6-5.1); Sodium* 134 mmol/L (135-149)
[2025-01-28 11:16] LABS: Anion Gap 7 mEq/L (7-15); Blood Urea Nitrogen* 22 mg/dL (7-30); Calcium* 9.0 mg/dL (8.4-10.6); Carbon Dioxide* 30 mmol/L (20-32); Creatinine* 0.9 mg/dL (0.5-1.5); Est. Creatinine Clearance* 70.06; Estimated Glomerular Filt Rate 89 ml/min; Glucose* 136 mg/dL (60-115)
== END 2025-01-28 13:20 | disposition home or self-care (01) ==
PROVIDERS: Emergency Provider Emergency Medicine Emergency Medical Services; PCP Family Medicine
DX: R11.10 Vomiting, unspecified (principal); G82.20 Paraplegia, unspecified; G35 Multiple sclerosis
CPT/HCPCS: 36415; 74177; 80048; 85025; 99284; Q9967

== ENCOUNTER 2025-01-28 12:58 | Outpatient (CLI) | payer MEDICARE, SELFPAY | END 2025-01-28 12:59 | disposition home or self-care (01) | LOC: AMB 02-03 17:31 | PROVIDERS: PCP Family Medicine; Visit Provider Student in an Organized Health Care Education/Training Program | DX: R11.10 Vomiting, unspecified (principal); G82.20 Paraplegia, unspecified; G35 Multiple sclerosis | CPT/HCPCS: A0425; A0428 ==

== ENCOUNTER 2025-01-29 12:05 | Outpatient (CLI) | payer MEDICARE, SELFPAY | END 2025-01-29 12:06 | disposition home or self-care (01) | LOC: WOUND 12:05 | PROVIDERS: PCP Family Medicine; Visit Provider Surgery | DX: L89.154 Pressure ulcer of sacral region, stage 4 (principal); M86.68 Other chronic osteomyelitis, other site; L89.324 Pressure ulcer of left buttock, stage 4; G82.20 Paraplegia, unspecified; G35 Multiple sclerosis; Z99.3 Dependence on wheelchair | CPT/HCPCS: 15271; 97605; Q4151 ==

== ENCOUNTER 2025-02-05 12:06 | Outpatient (CLI) | payer MEDICARE, SELFPAY | END 2025-02-05 12:07 | disposition home or self-care (01) | LOC: AMB 02-06 16:02 | PROVIDERS: PCP Family Medicine; Visit Provider Family Medicine | DX: R07.89 Other chest pain (principal) | CPT/HCPCS: A0425; A0427 ==

== ENCOUNTER 2025-02-05 12:44 | Emergency (ER) | payer MEDICARE, SELFPAY ==
--- OUTSIDE RECORDS SUMMARY | 2025-01-23 17:26 | XMS_ITS | Encounter Summary ---
Author Organization [facility] Address [address] [place] [address] Care Team Providers Care Copping Machine Operator Name Role Phone Jeff Reyes M.D. 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 [address] [place] [phone] Phone: tel: fax: [facility] Referral ID Status Reason Start Date Expiration Date V isits Requested Visits Authorized [id number] Authorized 01/23/2025 07/25/2026 1 1 Reason for Visit * Reason Comments Altered Mental Status Encounter Details Date Type Department Care Team (Late st Contact Info) Description 01/23/2025 5:26 PM CDT - 01/24/2025 12:38 AM CDT Emergency [facility] Emergency Department [address] [place] [phone] Ollie Walters M.D. 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 [facility] 11/08/2024 Education Answer Date Recorded What is the highest level of school you have completed or the highest degree you have received? 12th grade 10/18/2022 Sex and Gender Information Value Date Recorded Sex Assigned at Male 06/26/2018 4:20 PM [employer] T[employer] Legal Sex Male 3:33 AM [employer] T[employer] Gender Identity Not on file Sexual Orientation [...] sent through Care Everywhere. * Pressure Injury (Singaporean) * Abdominal Pain Adult Otqj-yb-Gegw (Singaporean) documented in this encounter Medications at Time [...] arrange return transportation to patient's facility - [facility] in [facility]. Nursing reports patient is alert and oriented, [...] his transportation. Social work offers information for [facility] transportation resources and discusses senior linkage line, offering formal referral. Patient expresses doubt that the transportation resources offered would be able to support patient's transportation needs, but does accept the information provided. Patient declines referral to the Senior Linkage Line. Social work speak with patient's son - Homero Ramirez, phone: [phone] - regarding patient situation and transportation needs. [...] would like further conversation with the ED health management consultant to discuss the medical decision to dismiss the patient, which he declines. Social work offers additional supportive options, and Homero accepts the [facility] reporting line, and the Office [...] of patient and family's concerns. The ED health management consultant reviews with ED social work that [...] with transportation back to his facility in [facility]. Social work arranged transportation with [employer], phone: [phone]. ASSESSMENT / PLAN ASSESSMENT Transport resources were explored and arranged to assist with the patient's needs. The patient appears to have insight into their needs at this time. PLAN 1. [employer], phone: [phone] to provide return transportation to [facility] in [facility]. 2. Please contact social work if further supportive or dismissal needs arise. The patient is being prepared to discharge on 01/24/25 at 00:35 if medically ready for transfer. Contact Social Work if time needs to be changed. Transportation will be provided by [employer] ([phone] ). Transportation will be paid for by Other. Darius Tate, Moe 01/23/2025 documented in this encounter Consult Notes * Bebeto Casper M.D. - 01/23/2025 10:21 PM CDT ---------Miscellaneous [facility] ED consult Service Note-------- Mr. Ren Ramirez a chart review was completed. The patient was not seen or evaluated by the [facility] ED Consult Team. Chart review and discussion with Emergency Department provider Ollie Walters M.D.. Bartolomeshelly was asked to arrange close PCP follow up. Will ask our DOS for help on Monday. -----All results and laboratory testing will be followed by the emergency department team. Please ensure results are forwarded to them. We appreciate the collaborative care with the [facility] ED in the management of Mr. Ren Ramirez. If any questions or concerns, feel free to page [phone] [facility] ED Consult Team between the hours of [...] done can follow outpatient. - discussed with [place] who are working on getting the patient [...] physician. We appreciate the help of the [place] team in arranging a primary care visit [...] presents to the ED via EMS [place] [address] [place] [address] living [facility] for abdominal pain. Has history of [...] but not date or day of the week. He is conversational and does not appear confused [...] facility. ED Course as of 01/24/25 0013 [facility] Jan 23, [id number] CBC without Differential [...] AM CDT Chung Mehta M.D. Resident 01/23/25 2053 Chung Mehta M.D. Resident 01/24/25 001 * [...] Contact Info) Description 02/06/2025 9:00 AM CDT Hospital Encounter Department of Radiology in [place], [place] [address], [place] [address] Pablo Vo M.D. [address] [place] [phone] 02/21/2025 11:00 AM CDT Virtual Visit Department of Oncology in [place], [place] [address] [place] [address] Pablo Vo M.D. [address] [place] [address] Scheduled Referrals Name Type Priority Associated Diagnoses [...] (ABNORMAL) Dipstick, Urine (01/23/2025 8:37 PM CDT) Pathologist [facility] Hemoglobin, QL, U Negative Negative 01/23/2025 8:57 [...] ORDERABLES Fin al Result Performing Organization Address City/[facility]/ZIP Co de Phone Number [facility] [address] [place] [address] * pH, Urine (01/23/2025 8:37 PM CDT) Pathologist [facility] pH, U 5.4 4.5 - 8.0 01/23/2025 9:0 3 PM CDT DT Urine 01/23/2025 8:37 PM CDT 01/23/2025 8:49 PM CDT us Chung Mehta M.D. LAB URINE ORDERABLES Fin al Result [facility] [address] [place] [address] * Osmolality, Urine (01/23/2025 8:37 PM CDT) Pathologist [facility] Osmolality, U 409 150 - 1150 mOsm/kg 01/23/2025 9:03 PM CDT DTL Urine 01/23/2025 8:37 PM CDT 01/23/2025 8:49 PM CDT Chung Mehta M.D. LAB URINE ORDERABLES Fin al Result Performing Organization Address [facility] [place] [address], [facility] [place] [address] * Microscopic Automated (01/23/2025 8:37 PM CDT) [...] ORDERABLES Fin al Result Performing Organization Address [facility] [place] [address], [facility] [place] [address] * Urinalysis, with Microscopic: Urine, Catheter (01/23/2025 [...] ORDERABLES Fin al Result Performing Organization Address City/[facility]/ZIP Co de Phone Number [facility] [address] [place] [address] * (ABNORMAL) Sedimentation Rate (01/23/2025 8:36 PM CDT) Sedimentation Rate, B 109(H) 3 - 28 mm/h 01/23/2025 9:29 PM CDT DTL Blood (Blood, Venous) 01/23/2025 8:36 PM CDT 01/23/2025 8:47 PM CDT Chung Mehta M.D. LAB BLOOD ADD-ON Final R esult Performing Organization Address City/[facility] Co de Phone Number [facility] [address] [place] [address] * (ABNORMAL) CRP (C-Reactive Protein) (01/23/2025 8:36 PM CDT) C-Reactive Protein (CRP), S 124.8(H) <5.0 mg/L 01/23/2025 9:28 PM CDT DTL Blood (Blood, Venous) 01/23/2025 8:36 PM CDT 01/23/2025 9:01 PM CDT Chung Mehta M.D. LAB BLOOD ADD-ON Final R esult [facility] [address] [place], [place] [phone] [place] [address] 200 [place] [address] * Bacteria / Zenobia Culture, Blood #2 (01/23/2025 8:34 PM CDT) Bacteria/Vannessa da Culture, Blood No growth after 5 days of incubation. 01/28/2025 9:02 PM CDT DTL Blood (Blood, Peripheral Draw) 01/23/2025 8:34 PM CDT 01/23/2025 8:50 PM CDT Comment:Specimen Source Site : Blood Chung Mehta M.D. LAB MICROBIOLOGY - GENER AL ORDERABLES Final Result Performing Organization Address City/[facility]/ZIP Co de Phone Number [facility] [address] [place] [address] * Lactate for Sepsis with Reflex (01/23/2025 8:32 PM CDT) Lactate, P 1.3 0.5 - 2.2 mmol/L 01/23/2025 8:59 PM CDT [facility] Blood (Blood, Venous) 01/23/2025 8:32 PM CDT 01/23/2025 8:44 PM CDT Chung Mehta M.D. LAB BLOOD NON ADD-ON Fin al Result [facility] [address] [place] [address], [facility] [place] [address] * Bacteria / Zenobia Culture, Blood #1 (01/23/2025 8:32 PM CDT) Bacteria/Vannessa da Culture, Blood No growth after 5 days of incubation. 01/28/2025 9:02 PM CDT DTL Blood (Blood, Peripheral Draw) 01/23/2025 8:32 PM CDT 01/23/2025 8:49 PM CDT Comment:Specimen Source Site : Blood us Chung Mehta M.D. LAB MICROBIOLOGY - GENER AL ORDERABLES Final Result [facility] [address] [place] [address], [facility] [address] [place] [address] * CT Abdomen Pelvis with IV Contrast [...] - 2.2 mmol/L 01/23/2025 7:05 PM CDT [facility] Blood (Blood, Venous) 01/23/2025 6:55 PM CDT 01/23/2025 7:02 PM CDT us Ollie Walters M.D. LAB BLOOD NON ADD-ON Final Res ult [facility] [address] [place] [address], [facility] [address] [place] [address] * Lipase (01/23/2025 6:55 PM CDT) Lipase, S 16 13 - 60 U/L 01/23/2025 7: 42 PM CDT DTL Blood (Blood, Venous) 01/23/2025 6:55 PM CDT 01/23/2025 7:25 PM CDT Ollie Walters M.D. LAB BLOOD ADD-ON Final Result [facility] [address] [place] [address], [facility] [address] [place] [address] * (ABNORMAL) Basic Metabolic Panel (01/23/2025 6:55 [...] BLOOD ADD-ON Final Result Performing Organization Address City/[facility]/ZIP Co de Phone Number [facility] [address] [place] [address], [facility] 200 [place] [address] * (ABNORMAL) CBC without Differential (01/23/2025 6:55 [...] Walters M.D. LAB BLOOD ADD-ON Final Result [facility] [address] [place] [address], [facility] [address] [place] [address] * ECG 12 Lead (01/23/2025 5:18 PM CDT) Ventricular Rate ECG/Min 79 BPM MUSE MS Interval 210 ms MUSE QRSD Interval 96 ms MUSE QT Interval 370 ms MUSE QTC Interval 424 ms MUSE P [place] 42 degrees MUSE R [place] -12 degrees MUSE T Wave [place] 47 degrees MUSE 01/23/2025 5:18 PM CDT [...] documented as of this encounter Care Teams Copping Machine Operator Relationship Specialty Start Date End Date Jeff Reyes M.D. [address] [place] [phone] PCP - General 03/14/24 documented as of this encounter
--- OUTSIDE RECORDS SUMMARY | 2025-02-04 12:11 | XMS_ITS | Encounter Summary ---
Author Organization [facility] Address [address] [place] [address] Care Team Providers Care Council Member Name Role Phone Jeff Reyes M.D. Primary Care Provider Reason for Referral * Outpatient (Routine) - Authorized Specialty Diagnoses / Procedures Referred By Jono donohue Referred To Contact General Surgery Diagnoses Cholecystitis Anuel Nunn M.D. [address] [place] [phone] Phone: tel: fax: [facility] Referral ID Status Reason Start Date Expiration Date Visits Requested Visits Authorized [id number] Authorized Specialty Services Required 02/04/2025 08/06/2026 1 1 * Outpatient (Routine) - Closed Specialty Diagnoses / Procedures Referred By Jono donohue Referred To Contact Radiology Diagnoses Cholecystitis Procedures IR Percutaneous Cholecystostomy Tube Exchange Anuel Nunn M.D. [address] [place] [phone] Phone: tel: fax: [facility] Referral ID Status Reason Start Date Expiration Date Visits Re quested Visits Authorized [id number] Closed 10/24/2024 01/24/2026 1 1 Reason for Visit * Outpatient (Routine) - Closed Specialty Diagnoses / Procedures Referred By Jono donohue Referred To Contact Radiology Diagnoses Cholecystitis Procedures IR Percutaneous Cholecystostomy Tube Exchange Anuel Nunn M.D. [facility] [place] [address] Phone: tel: fax: [facility] Referral ID Status Reason Start Date Expiration Date Visits Re quested Visits Authorized [id number] Closed 10/24/2024 01/24/2026 1 1 Encounter Details Date Type Department Care Team (Latest Contact Info) Description 02/04/2025 12:11 PM CDT - 02/04/2025 1:42 PM CDT Hospital Encounter Department of Radiology in [address] [phone] Anuel Nunn M.D. [address] [place] [phone] Cholecystitis Discharge Disposition: Home or Self Care Social History Tobacco Use Types Packs/Day Years Used Date Smoking Tobacco: Former Cigarettes Q uit: 1977 Passive Smoke Exposure: Never Alcohol Use Standard Drinks/Week Comments Not Currently 1 (1 standard drink = 0.6 oz pur e alcohol) [facility] Utilities Answer Date Recorded In the past 12 months has [facility] [employer], gas, oil, or water [employer] threatened to shut off services in [...] Assigned at Male 06/26/2018 4:20 PM RN SECURITY Legal Sex Male 3:33 AM RN SECURITY Gender Identity Not on file Sexual Orientation [...] CDT Hospital Encounter Department of Radiology in [place], [place] [address] [place] [address] Pablo Vo M.D. [address] [place] [phone] 02/21/2025 11:00 AM CDT Virtual Visit Department of Oncology in [place], [place] [address] [place] [phone] Pablo Vo M.D. [address] [place] [phone] Pending Results Name Type Priority Associated Diagnoses Date/Time IR Percutaneous Cholecystostomy Tube Exchange Imaging RAD - Routine (most inpatients and all outpatients) Cholecystitis 02/04/2025 1:28 PM CDT Scheduled Orders Name Type Priority Associated Diagnoses Order Schedule IR Percutaneous Cholecystostomy Tube Exchange Imaging RAD - Routine (most inpatients and all outpatients) Cholecystitis Once for 1 Occurrences starting 02/04/2025 until 02/04/2025 Scheduled Referrals Name Type Priority Associated Diagnoses Orde r Schedule General Surgery - General consult (clinic) Outpatient Referral Routine Cholecystitis Expected: 02/04/2025, Expires: 05/07/2026 documented as of this encounter Visit Diagnoses Diagnosis Cholecystitis documented [...] documented as of this encounter Care Teams Council Member Relationship Specialty Start Date End Date Jeff Reyes M.D. [address] [place] [phone] PCP - General 03/14/24 documented as of this encounter
[2025-02-05] VITALS (58 sets, daily range): BP systolic 108–162; BP diastolic 51–81; PULSE 85–115; RESP 11–22; TEMP 36.2; O2SAT 90–98; BMI 32.5
--- OUTSIDE RECORDS SUMMARY | 2025-02-05 12:46 | XMS_ITS | Patient Health Record ---
Author Organization [facility] Address [address] [place] [address] Care Team Providers Care Timber Inspector Name Role Phone Rubén Paez MD Primary Care Provider Melody Michael [place] Unavailable [phone] Reason For Referral No Information Social History Tobacco Use: Social History Observation Description Date Details (start date - stop date) Former Smoker NA - NA Tobacco Use/Smoking Question Answer Notes Are you a former smoker Section Notes: FAMILY HISTORY: HISTORY OF FAMILY PSYCH: Problems Problem Type SNOMED Code ICD Code Onset Dates Problem Status W/U Status Risk Notes Problem Tinea unguium (B35.1) Active confirmed Problem 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 (482621179) 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 confirmed Problem 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 Problem Pressure injury of right buttock stage III (disorder) (37090517488150 ) Pressure ulcer of right buttock, stage 3 (L89.313) Active confirmed Problem Pressure injury of right heel stage IV (disorder) (58639392408926 ) Pressure ulcer of right heel, 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 [place] [address] [id number] Ren Ramirez Self - patient is the insured 3
--- OUTSIDE RECORDS SUMMARY | 2025-02-05 12:47 | XMS_ITS | Clinical Summary ---
Author Organization [facility] Address [address] [place] [address] Care Team Providers Care Pediatric Speech Therapist Name Role Phone NitinBirdie RN Unavailable [phone] Karrie Singer RN Unavailable Clinic, No Pcp Or Primary Care Provider Unavaila ble Allergies Active Allergy Reactions Criticality Noted Date Comments Vancomycin vancomycin infusion reaction (cutaneous flushing/non-allergic reaction) Medium 05/26/2018 Red Man Syndrome Encounters Date Type Department Care Team Description 02/03/2025 Lab Requisition [facility] [phone] Carmenza Quiroz NP 01/20/2025 Lab Requisition [facility] [phone] Carmenza Quiroz, FILM WRITER 01/14/2025 Lab Requisition [facility] [address] [place] [address] Carmenza Quiroz FILM WRITER 12/30/2024 Lab Requisition [facility] [phone] Carmenza Quiroz FILM WRITER 12/23/2024 Lab Requisition [facility] [phone] Carmenza Quiroz FILM WRITER 12/13/2024 Lab Requisition [facility] [phone] Sue Bailey MD 12/09/2024 Lab Requisition [facility] [phone] Carmenza Quiroz FILM WRITER 11/29/2024 Lab Requisition [facility] [phone] Bijan Crawford MD 11/14/2024 8:30 AM CDT - 11/14/2024 11:59 PM CDT Hospital Encounter [facility] [address] [place] [address] Pablo Vo [facility] Acute pulmonary embolus (HC); 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 [address] [place] [address] Markel Schultz MD [address] [place] [address] Procedures Procedure Name Priority Date/Time Associated Diagnosis Comments CBC WITH AUTO DIFFERENTIAL Routine 02/04/2025 8:04 AM CDT Osteomyelitis, unspecified (HC) Type 2 diabetes mellitus without complications (HC) BASIC METABOLIC PANEL Routine 02/04/2025 8:04 AM CDT Osteomyelitis, unspecified (HC) Type 2 diabetes mellitus without complications (HC) CBC WITH AUTO DIFFERENTIAL Routine 02/04/2025 8:04 AM CDT Osteomyelitis, unspecified (HC) Type 2 diabetes mellitus without complications (HC) CBC WITH AUTO DIFFERENTIAL Routine 01/21/2025 [...] (HC) SCAN-RADIOLOGY REPORT 11/14/2024 12:00 AM CDT from Last 3 Months Results * (ABNORMAL) CBC WITH AUTO DIFFERENTIAL (02/04/2025 8:04 AM CDT) Only the most recent of6 resultswithin the time period is included. Pathologist [facility] WHITE BLOOD COUNT 13.1(H) 4.5 - 11.0 thou/cu mm 02/04/2025 9:53 AM CDT [facility] RED BLOOD COUNT 4.12(L) 4.30 - 5.90 mil/cu mm 02/04/2025 9:53 AM [facility] HEMOGLOBIN 10.6(L) 13.5 - 17.5 g/dL 02/04/2025 9:53 AM [facility] HEMATOCRIT 35.5(L) 37.0 - 53.0 % 02/04/2025 9:53 AM [facility] MCV 86 80 - 100 fL 02/04/2025 9:53 AM [facility] MCH 25.7(L) 26.0 - 34.0 pg 02/04/2025 9:53 AM [facility] MCHC 29.9(L) 32.0 - 36.0 g/dL 02/04/2025 9:53 AM [facility] RDW 18.8(H) 11.5 - 15.5 % 02/04/2025 9:53 AM [facility] PLATELET COUNT 244 140 - 440 thou/cu mm 02/04/2025 9:53 AM [facility] MPV 9.7 6.5 - 11.0 fL 02/04/2025 9:53 AM [facility] % NEUT 81.3 % 02/04/2025 9:53 AM [facility] % LYMPH 11.6 % 02/04/2025 9:53 AM [facility] % MONO 5.8 % 02/04/2025 9:53 AM [facility] % EOS 1.3 % 02/04/2025 9:53 AM [facility] % BASO 0.0 % 02/04/2025 9:53 AM [facility] ABSOLUTE NEUTROPHILS 10.6(H) 1.7 - 7.0 thou/cu mm 02/04/2025 9:53 AM [facility] ABSOLUTE LYMPHOCYTES 1.5 0.9 - 2.9 thou/cu mm 02/04/2025 9:53 AM [facility] ABSOLUTE MONOCYTES 0.8 <0.9 thou/cu mm 02/04/2025 9:53 AM [facility] ABSOLUTE EOSINOPHILS 0.2 <0.5 thou/cu mm 02/04/2025 9:53 AM [facility] ABSOLUTE BASOPHILS 0.0 <0.3 thou/cu mm 02/04/2025 9:53 AM T [facility] Blood BLOOD SPECIMEN / Unknown Venipuncture / Unknown 02/04/2025 8:04 AM CDT 02/04/2025 9:39 AM CDT us Carmenza Quiroz NP HEMATOLOGY Final Resul t [facility] [address] [place] [address] * (ABNORMAL) BASIC METABOLIC PANEL (02/04/2025 8:04 AM CDT) Only the most recent of4 resultswithin the time period is included. SODIUM 138 136 - 145 mmol/L 02/04/2025 10:11 AM [facility] POTASSIUM 4.2 3.5 - 5.1 mmol/L 02/04/2025 10:11 AM [facility] CHLORIDE 97(L) 98 - 107 mmol/L 02/04/2025 10:11 AM [facility] CO2,TOTAL 25 22 - 29 mmol/L 02/04/2025 10:11 AM [facility] ANION GAP 16 5 - 18 02/04/2025 10:11 AM [facility] GLUCOSE 173(H) 70 - 99 mg/dL 02/04/2025 10:11 AM [facility] CALCIUM 9.5 8.8 - 10.4 mg/dL 02/04/2025 10:11 AM [facility] Comment: Reference ranges for this test were updated on 05/28/2024 to reflect our healthy population more accurately. Reference range changes are not retroactively applied to results, but previous results using the same methodology can be interpreted in the context of the new reference range. BUN 18 8 - 23 mg/dL 02/04/2025 10:11 AM [facility] CREATININE 1.10 0.70 - 1.20 mg/dL 02/04/2025 10:11 AM [facility] BUN/CREAT RATIO 16 10 - 20 10:11 AM [facility] eGFR 70(L) >90 mL/min/1. 73m2 02/04/2025 10:11 AM [facility] Comment:As of 2021, eG FR is calculated by the CKD-EPI creatinine equation without race adjustment. eGFR can be influenced by muscle mass, exercise, and diet. The reported eGFR is an estimation only and is only applicable if the renal function is stable. Blood BLOOD SPECIMEN / Unknown Venipuncture / Unknown 02/04/2025 8:04 AM CDT 02/04/2025 9:39 AM CDT Carmenza Quiroz NP CHEMISTRY Final Resul t Performing Organization Address [facility] de Phone Number [facility] [address] [place] [address] * TSH (01/14/2025 7:40 AM CDT) TSH 2.69 0.27 - 4.20 uIU/mL 01/14/2025 9:16 AM CDT [facility] Blood BLOOD SPECIMEN / Unknown Butterfly / Unknown 01/14/2025 7:40 AM CDT 01/14/2025 8:42 AM CDT Narrative [facility] - 01/14/2025 9:16 AM CDT In Adults, TSH values between 5.00 and 10.00 uIU/ml do not necessarily indicate the presence of Hypothyroidism. Correlation with clinical findings such as presence of goiter and/or Thyroperoxidase (TPO) Antibody may be helpful. For more information please refer to LUIGI 2004; 291: 228-238. Carmenza Quiroz NP CHEMISTRY Final Resul t Performing Organization Address [facility] Co de Phone Number [facility] [address] [place] [address] * (ABNORMAL) C-REACTIVE PROTEIN (01/14/2025 7:40 AM CDT) Only the most recent of2 resultswithin the time period is included. C-REACTIVE PROTEIN 8.8(H) <0.5 mg/dL 01/14/2025 9:16 AM CDT [facility] Blood BLOOD SPECIMEN / Unknown Butterfly / Unknown 01/14/2025 7:40 AM CDT 01/14/2025 8:42 AM CDT Carmenza Quiroz FILM WRITER CHEMISTRY Final Resul t Performing Organization Address [facility] de Phone Number [facility] [address] [place] [address] * ALT (SGPT) (01/14/2025 7:40 AM CDT) ALT (SGPT) 19 10 - 50 IU/L 01/14/2025 9:16 AM CDT [facility] Blood BLOOD SPECIMEN / Unknown Butterfly / Unknown 01/14/2025 7:40 AM CDT 01/14/2025 8:42 AM CDT Carmenza Quiroz NP CHEMISTRY Final Resul t Performing Organization Address [facility] de Phone Number [facility] [address] [place] [address] * ALK PHOSPHATASE (01/14/2025 7:40 AM CDT) ALK PHOSPHATASE 85 40 - 129 IU/L 01/14/2025 9:16 AM CDT [facility] Blood BLOOD SPECIMEN / Unknown Butterfly / Unknown 01/14/2025 7:40 AM CDT 01/14/2025 8:42 AM CDT Carmenza Quiroz FILM WRITER CHEMISTRY Final Resul t Performing Organization Address [facility]/State/ZIP Co de Phone Number [facility] [address] [place] [address] * (ABNORMAL) PRO-BNP (01/14/2025 7:40 AM CDT) PRO-BNP 1,544(H) <450 pg/mL 01/14/2025 9:19 AM CDT [facility] Blood BLOOD SPECIMEN / Unknown Butterfly / Unknown 01/14/2025 7:40 AM CDT 01/14/2025 8:42 AM CDT [facility] - 01/14/2025 9:19 AM CDT The [...] Quiroz NP SEND OUTS Final Resul t [facility] [address] [place], [place] [id number] * (ABNORMAL) RED CELL MORPHOLOGY (12/31/2024 7:10 AM CDT) ELLIPTOCYTES Few 12/31/2024 10:44 AM CDT [facility] POLYCHROMASIA Slight 12/31/2024 10:44 AM CDT [facility] TEARDROP CELLS Few 12/31/2024 10:44 AM CDT [facility] RBC COMMENT Present(A) RBC morphology appears normal, RBC morphology within normal limits for newborns. 12/31/2024 10:44 AM CDT [facility] *BASOPHILIC STIPPLING Present 12/31/2024 10:44 AM CDT [facility] Blood BLOOD SPECIMEN / Unknown Butterfly / Unknown 12/31/2024 7:10 AM CDT 12/31/2024 9:36 AM CDT us Carmenza Quiroz FILM WRITER HEMATOLOGY Final Resul t Performing Organization Address City/[facility]/ZIP Co de Phone Number [facility] [address] [place] [address] * PLATELET ESTIMATE (12/31/2024 7:10 AM CDT) PLATELET ESTIMATE Adequate Adequate, No estimate 12/31/2024 10:44 AM CDT [facility] Blood BLOOD SPECIMEN / Unknown Butterfly / Unknown 12/31/2024 7:10 AM CDT 12/31/2024 9:36 AM CDT us Carmenza Quiroz NP HEMATOLOGY Final Resul t Performing Organization Address [facility]/ZIP Co de Phone Number [facility] [address] [place] [id number] * LAB TRACKING EVENT (12/13/2024 3:58 PM CDT) Other (Other) Client Collect / Unknown 12/13/2024 3:58 PM CDT 12/13/2024 10:08 PM CDT us Sue Bailey MD LAB BILL ONLY Final Re sult [facility] [address] [place] [address], [place] * PATH TISSUE EXAM (12/13/2024 3:58 PM CDT) Case Report Pathology Report Case: [id number] Authorizing Provider: Sue Bailey MD Collected: 12/13/2024 1558 Ordering Location: [facility] Received: 12/14/2024 0858 Pathologist: Shay Noland MD Specimen: Left Buttock, left buttock pressure ulcer tissue 12/19/2024 1:42 PM CDT [facility] Final Diagnosis A) SOFT TISSUE, LEFT BUTTOCK, DEBRIDEMENT: Fibroadipose tissue with necrosis and foci of acute inflammation 12/19/2024 1:42 PM CDT [facility] at 1341 CDT Clinical Information Pressure ulcer on the left buttock. 12/19/2024 1:42 PM CDT [facility] Gross Description A) Received in formalin, labeled with the patient's name and L buttock pressure ulcer tissue, is a 7.5 x 5.5 x 3.3 cm aggregate of multiple irregular portions of sandoval-brown, dusky and ragged soft tissue. No lesions or masses are identified. Brine Tank Separator Operator sections are submitted in 1 cassette. JKG 12/17/2024 12/19/2024 1:42 PM CDT [facility] Microscopic Description The final diagnosis is based on microscopic examination of appropriate sections of all specimens. 12/19/2024 1:42 PM CDT [facility] Additional Information Interpreted at [facility] - [address] [address] 12/19/2024 1:42 PM CDT [facility] Other (Left Buttock) 12/13/2024 3:58 PM CDT 12/14/2024 8:58 AM CDT us Sue Bailey MD PATHOLOGY/CYTOLOGY Final Result [facility] [address] [place] [address], * VITAMIN B12 (12/10/2024 7:05 AM CDT) VITAMIN B12 510 232 - 1,245 pg/mL 12/10/2024 12:14 PM CDT [facility] Blood BLOOD SPECIMEN / Unknown Venipuncture / Unknown 12/10/2024 7:05 AM CDT 12/10/2024 7:47 AM CDT Narrative [facility] - 12/10/2024 12:14 PM CDT Biotin supplements may cause clinically significant interference for this test assay. If interference is suspected, it is strongly recommended that biotin is discontinued for at least one week prior to retesting. us Carmenza Quiroz FILM WRITER CHEMISTRY Final Resul t [facility] [address] [place] [address], * CT CHEST PE STUDY (11/14/2024 9:06 AM CDT) Anatomical Region Laterality Modality CHEST, THORAX, HEART Computed To mography Pablo Wilkins Gilda [facility] CT Fin al Result * SCAN-RADIOLOGY REPORT (11/14/2024 12:00 AM CDT) Anatomical Region Laterality Modality Computed Tomogra phy us Scanner OTHER Final Result from Last 3 Months Insurance [employer] [facility] MEDICA DUAL [employer] [facility] Care Teams Pediatric Speech Therapist Relationship Specialty Start Date End Date Clinic, No Pcp Or . PCP - General 07/31/23 Birdie Taveras RN [address] [place] [address] Salvage Clerk - [facility] Registered Nurse 07/24/23 Karrie Singer RN [address] [facility] [address] [place] [address] Salvage Clerk - [facility] Registered Nurse 07/24/23
--- NOTE | 2025-02-05 13:37 | CRLHL7_ITS ---
For Patients: As a result of the Century Cures Act, medical imaging exams and procedure reports are released immediately into your electronic medical record. You may view this report before your referring provider. If you have questions, please contact your health care provider. INDICATION: Dyspnea. Chest pain. TECHNIQUE: Multiplanar CT pulmonary angiogram was performed after the administration of 95 mL of Isovue 370 intravenous contrast. COMPARISON: CTA chest 08/07/2024. FINDINGS: Lower neck: The visualized thyroid is unremarkable. Cardiovascular: Contrast opacification of the pulmonary arterial tree is adequate. Heart size is normal. Thoracic aorta and pulmonary artery are normal in caliber. Moderate atherosclerotic calcifications of the aortic arch. Dense coronary arterial calcifications. No pulmonary embolus. Mediastinum and lymph nodes: Unremarkable. No pathologic mediastinal or hilar lymphadenopathy by size criteria. Lungs: No focal consolidation. Tree-in-bud nodularity at the right lower lobe. Ctzy-jw-bddrhddm pulmonary emphysema. Dependent atelectasis. Linear bandlike opacification of the lung bases bilaterally, likely subsegmental atelectasis and/or scarring. Trachea: Patent and midline. Mild diffuse peribronchial wall thickening. Pleura: No pleural effusions or pneumothorax Chest wall: Unremarkable. Prominent axillary lymph nodes that do not meet size criteria for lymphadenopathy. Bones: No acute osseous abnormalities. Mild degenerative changes of the thoracic spine. Upper abdomen: Percutaneous cholecystostomy tube. No acute findings in the visualized upper abdomen. No reflux of contrast material into the IVC. IMPRESSION: 1. No pulmonary embolus. No CT evidence of right heart strain. 2. Tree-in-bud nodularity of the right lower lobe, suggestive of a infectious or inflammatory bronchiolitis. 3. [id number]-[id number] pulmonary emphysema. 4. Dense coronary arterial calcifications. Please note that all CT scans at this facility use dose modulation, iterative reconstruction, and/or weight-based dosing when appropriate to reduce radiation dose to as low as reasonably achievable. Dictated by Armando Fitzpatrick MD @ 02/05/2025 3:58:57 PM (Electronically Signed)
--- OUTSIDE RECORDS SUMMARY | 2025-02-05 13:39 | XMS_ITS | Clinical Summary ---
Author Organization [facility] Address [address] [place] [address] Care Team Providers Care Warehouse Logistics Coordinator Name Role Phone Jeff Reyes M.D. Primary Care Provider Source Comments Patient records contain information from all sites at [facility]. For routine questions regarding patient records, call [phone] during business hours, M-F 8:00 AM - 5:00 PM Central Time. 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 Assessment & Plan (07/04/2018 2:56 PM CHEMICAL TECHNICIAN): Continue I&O catheterization as needed Multiple Sclerosis 06/03/2003 Assessment & Plan (07/04/2018 3:32 PM CHEMICAL TECHNICIAN): -Continue to follow with Neurology for further recommendations Resolved Problems Problem Noted Date Diagnosed Date Resolved Date Sprain Ankle Initial Right 11/08/2022 0 11/09/2022 Obesity Unspecified 03/21/2019 11/10/19 23 Urinary Tract Infection Site Not Specified 07/04/2018 11/09/2022 Overview (07/04/2018): Completed ciprofloxacin 500 mg b.i.d. for an antibiotic course of 14 days (last dose on 06/08/2018) Assessment & Plan (07/04/2018 3:31 PM CHEMICAL TECHNICIAN): -Patient denies any urinary symptoms today on exam. -Continue care cranberry 450 mg daily Failure Renal Acute (Acute Kidney Injury) 05/27/2018 10/19/2022 Non-ST Elevation Myocardial Infarction 05/26/2018 10/23/2019 Assessment & Plan (07/04/2018 10:14 AM CHEMICAL TECHNICIAN): 1. Continue aspirin 81 mg daily 2. [...] Encounters Date Type Department Care Team Description 02/04/2025 12:11 PM CDT - 02/04/2025 1:42 PM CDT Hospital Encounter Department of Radiology in [place] [address] [place] [address] Anuel Nunn M.D. Cholecystitis Discharge Disposition: Home or Self Care 01/31/2025 Clinical Communication Department of Oncology in [place], [place] [address] [place] [address] Pablo Vo M.D. Nurse call back 01/23/2025 5:26 PM CDT - 01/24/2025 12:38 AM CDT Emergency [facility] Emergency Department [address] [place] [address] Ollie Walters M.D. 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 12/17/2024 Orders Only [facility] [address] [place] [address] Jeff Reyes M.D. Screening Cancer Colon 12/03/2024 Orders Only [facility] S[facility]F TEST [facility] [address] [place] [address] Jeff Reyes M.D. Screening Cancer Colon 11/14/2024 8:45 AM CDT - 11/14/2024 11:59 PM CDT Hospital Encounter Department of Radiology in [address] [address] Pablo Vo M.D. Embolus Pulmonary (HCC); Acute Embolism And Thrombosis Of Other Specified Deep Vein Of Lower Extremity Bilateral (HCC) Discharge Disposition: Home or Self Care 11/14/2024 8:23 AM CDT - 11/14/2024 8:44 AM CDT Hospital Encounter Department of Radiology in [address] [address] Pablo Vo M.D. Embolus Pulmonary (HCC); Acute Embolism And Thrombosis Of Other Specified Deep Vein Of Lower Extremity Bilateral (HCC) Discharge Disposition: Home or Self Care 11/14/2024 Results Follow-Up Department of Oncology in [address] [address] Chest Angiogram and Pulmonary Arteries with IV Contrast 11/12/2024 10:26 AM CDT - 11/12/2024 11:59 PM CDT Hospital Encounter Department of Laboratory Medicine in [address] [address] Pablo Vo M.D. Embolus Pulmonary (HCC); Acute Embolism And Thrombosis Of Other Specified Deep Vein Of Lower Extremity Bilateral (HCC) Discharge Disposition: Home or Self Care 11/12/2024 9:00 AM CDT Comprehensive Visit Department of Oncology in [address] [address] Pablo Vo M.D. Embolus Pulmonary (HCC) (Primary Dx); Acute Embolism And Thrombosis Of Other Specified Deep Vein Of Lower Extremity Bilateral (HCC); Paraplegia (HCC); Multiple Sclerosis (HCC); Body Mass Index 34.0 To 34.9 Adult 11/12/2024 Clinical Communication Department of Family Medicine, [facility], in [place] [address] [place] [address] Jeff Reyes M.D. 11/08/2024 10:45 AM CDT Virtual Visit Department of Cardiovascular Diseases in [place], [place] [address] [place] [address] Thaddeus Li M.D. Hyperlipidemia On Treatment (Primary Dx); Atherosclerotic Heart Disease Of [place] Coronary Artery Without Angina Pectoris; Preoperative Examination Cardiovascular; Embolus Pulmonary (HCC) 11/06/2024 8:22 AM CDT - 11/06/2024 11:59 PM CDT Hospital Encounter Department of Cardiovascular Diseases in [place], [place] [address] [place] [address] Thaddeus Li M.D. Cholecystitis; Preoperative Examination Cardiovascular; Hyperlipidemia On Treatment; Atherosclerotic Heart Disease Of [place] Coronary Artery Without Angina Pectoris Discharge Disposition: Home or Self Care from [...] Date Smoking Tobacco: Former Cigarettes Q uit: 1978 Passive Smoke Exposure: Never Tobacco Cessation:Counseling Given: Not Answered Alcohol Use Standard Drinks/Week Comments Not Currently 1 (1 standard drink = 0.6 oz pur e alcohol) [facility] Utilities Answer Date Recorded In the [...] a [facility] 11/08/2024 Education Answer Date Recorded What is the highest level of school you have completed or the highest degree you have received? 12th grade 10/18/2022 Sex and Gender Information Value Date Recorded Sex Assigned at Male 06/26/2018 4:20 PM CHEMICAL TECHNICIAN Legal Sex Male 3:33 AM CHEMICAL TECHNICIAN Gender Identity Not on file Sexual [...] Body Mass Index 34.23 09/15/2024 3:21 PM CHEMICAL TECHNICIAN Plan of Treatment Upcoming Encounters Date Type Department Care Team (Late st Contact Info) Description 02/06/2025 9:00 AM CDT Hospital Encounter Department of Radiology in [place], [place] [address] [place] [phone] Pablo Vo M.D. [address] [place] [phone] 02/21/2025 11:00 AM CDT Virtual Visit Department of Oncology in [place], [place] [address] [place] [phone] Pablo Vo M.D. [address] [place] [phone] Health Maintenance Due Date Last Done Comments [...] 11/12/2025 11/12/2024 Creatinine Level (Kidney Function Test) 02/04/2026 02/04/2025, 01/23/2025, 01/21/2025, Additional history exists Potassium Level 02/04/2026 02/04/2025, 07/0 09/2024, 01/21/2025, Additional history exists Sodium Level 02/04/2026 02/04/2025, 07/0 09/2024, 01/21/2025, Additional history exists Fasting Glucose for Diabetes Screening 02/05/2028 02/04/2025, 01/23/2025, 01/21/2025, Additional history exists DTaP,Tdap,and Td Vaccines (3 - Td or Tdap) 04/08/2029 04/08/2019, 08/21/2009, 08/16/1999 Lipid (Cholesterol) Screening 11/05/2029 11/05/2024, 10/25/2021, 04/06/2020, Additional history exists Zoster Vaccines Completed 03/09/2018, 12/22, 08/21/2009 Pneumococcal vaccine (50+ years) Completed 03/21/2019, 04/21/2015, 08/03/2011 RSV vaccine - (32-36 weeks) or 60+ years Completed 05/17/2024 Abdominal Aortic Aneurysm (AAA) Screen Discontinued 01/23/2025, 09/15/2024, 09/02/2024, Additional history exists Fall Risk Screen (Annual) Completed 02/04/2025 IPV Vaccines Aged Out No longer eligi ble based on patient's age to complete this topic Medical Devices Implanted Type Area Shift Production Supervisor Device Identifier Shelf Expiration Date Model / Serial / Lot Scrw St 24pthrd 8.0x105 - [id number] Implanted:Qty : 1 on 12/15/2022 by Jana Don M.D. at [facility] Hardware e.g. pins/screws/ rods Right: Femur [employer] [id number] / / Scrw Vthrd Fast 7.0x105 - [id number] Implanted:Qty : 2 on 12/15/2022 by Jana Don M.D. at [facility] Hardware e.g. pins/screws/ rods Right: [employer] [id number] / / Washr Flt 1.5x13 - [id number] Implanted:Qty : 4 on 12/15/2022 by Jana Don M.D. at [facility] Hardware e.g. pins/screws/ rods Right: Femur [...] Hyperlipidemia On Treatment Atherosclerotic Heart Disease Of [place] Coronary Artery Without Angina Pectoris LIPID PANEL, S Routine 11/05/2024 9:32 AM CDT Cholecystitis Preoperative Examination Cardiovascular Hyperlipidemia On Treatment Atherosclerotic Heart Disease Of [place] Coronary Artery Without Angina Pectoris from Last 3 Months or Most Recently Relevant to Health Maintenance Results * (ABNORMAL) Dipstick, Urine (01/23/2025 8:37 [...] ORDERABLES Fin al Result Performing Organization Address City/[facility]/ZIP Co de Phone Number [address] [place] [address] * Microscopic Automated (01/23/2025 8:37 PM CDT) [...] ORDERABLES Fin al Result Performing Organization Address City/[facility]/[place] [address], [facility] [place] [place] [address] * pH, Urine (01/23/2025 8:37 PM CDT) pH, U 5.4 4.5 - 8.0 01/23/2025 9:0 3 PM CDT DTL Urine 01/23/2025 8:37 PM CDT 01/23/2025 8:49 PM CDT Chung Mehta M.D. LAB URINE ORDERABLES Fin al Result Performing Organization Address City/[facility]/ZIP Co de Phone Number [facility] [address] [place] [address], [facility] [address] [place] [address] * Osmolality, Urine (01/23/2025 8:37 PM CDT) Osmolality, U 409 150 - 1150 mOsm/kg 01/23/2025 9:03 PM CDT DTL Urine 01/23/2025 8:37 PM CDT 01/23/2025 8:49 PM CDT Chung Mehta M.D. LAB URINE ORDERABLES Fin al Result Performing Organization Address [facility] Co de Phone Number [facility] [address] [place] [address], [place] [address] * Urinalysis, with Microscopic: Urine, Catheter (01/23/2025 [...] M.D. LAB URINE ORDERABLES Fin al Result [facility] [address] [place] [address] * (ABNORMAL) Sedimentation Rate (01/23/2025 8:36 PM CDT) Sedimentation Rate, B 109(H) 3 - 28 mm/h 01/23/2025 9:29 PM CDT DT Blood (Blood, Venous) 01/23/2025 8:36 PM CDT 01/23/2025 8:47 PM CDT Chung Mehta M.D. LAB BLOOD ADD-ON Final R esult Performing Organization Address City/[facility]/ZIP Co de Phone Number [facility] [address] [place] [address] * (ABNORMAL) CRP (C-Reactive Protein) (01/23/2025 8:36 PM CDT) C-Reactive Protein (CRP), S 124.8(H) <5.0 mg/L 01/23/2025 9:28 PM CDT DTL Blood (Blood, Venous) 01/23/2025 8:36 PM CDT 01/23/2025 9:01 PM CDT Chung Mehta M.D. LAB BLOOD ADD-ON Final R esult Performing Organization Address City/[facility]/ZIP Co de Phone Number [facility] [address] [place] [address] [place] [address] * Bacteria / Zenobia Culture, Blood #2 (01/23/2025 8:34 PM CDT) Only the most recent of2 resultswithin the time period is included. Pathologist [facility] Bacteria/Vannessa da Culture, Blood No growth after 5 days of incubation. 01/28/2025 9:02 PM CDT DTL Blood (Blood, Peripheral Draw) 01/23/2025 8:34 PM CDT 01/23/2025 8:50 PM CDT Comment:Specimen Source Site : Blood Chung Mehta M.D. LAB MICROBIOLOGY - GENER AL ORDERABLES Final Result [facility] [address] [place] [address] * Lactate for Sepsis with Reflex (01/23/2025 8:32 PM CDT) Pathologist [facility] Lactate, P 1.3 0.5 - 2.2 mmol/L 01/23/2025 8:59 PM CDT [facility] Blood (Blood, Venous) 01/23/2025 8:32 PM CDT 01/23/2025 8:44 PM CDT Chung Mehta M.D. LAB BLOOD NON ADD-ON Fin al Result [facility] [address] [place] [address] * CT Abdomen Pelvis with IV Contrast [...] * Lactate, B (01/23/2025 6:55 PM CDT) [facility] Lactate, B 1.2 0.5 - 2.2 mmol/L 01/23/2025 7:05 PM CDT [facility] Blood (Blood, Venous) 01/23/2025 6:55 PM CDT 01/23/2025 7:02 PM CDT Ollie Walters M.D. LAB BLOOD NON ADD-ON Final Res [address] [place] [address] [place] [address], [place] [address] * (ABNORMAL) CBC without Differential (01/23/2025 6:55 PM CDT) [facility] Hemoglobin 10.6(L) 13.2 - 16.6 g/dL 01/23/2025 [...] BLOOD ADD-ON Final Result Performing Organization Address City/[facility]/ZIP Co de Phone Number [facility] [address] [place] [address], [facility] STMA [facility] [address] [place] [address] * Lipase (01/23/2025 6:55 PM CDT) Pathologist [facility] Lipase, S 16 13 - 60 U/L 01/23/2025 7: 42 PM CDT DTL Blood (Blood, Venous) 01/23/2025 6:55 PM CDT 01/23/2025 7:25 PM CDT us Ollie Walters M.D. LAB BLOOD ADD-ON Final Result Performing Organization Address [facility] Co de Phone Number [facility] [address] [place] [address], [facility] DTL [facility] [address] [place] [address] * (ABNORMAL) Basic Metabolic Panel (01/23/2025 6:55 PM CDT) Pathologist [facility] Potassium, P 4.6 3.6 - 5.2 mmol/L [...] CDT 01/23/2025 7:02 PM CDT us Ollie Wlaters M.D. LAB BLOOD [place] [address], [facility] [address] [place] [address] * ECG 12 Lead (01/23/2025 5:18 PM CDT) Ventricular Rate ECG/Min 79 BPM MUSE AZ Interval 210 ms MUSE QRSD Interval 96 ms MUSE QT Interval 370 ms MUSE QTC Interval 424 ms MUSE P Colon 42 degrees MUSE R Colon -12 degrees MUSE T Wave Colon 47 degrees MUSE 01/23/2025 5:18 PM CDT [...] and management can be found on the [employer] site. Link [email or web address] Procedure Note Codey Saavedra M.D. - 11/14/2024 [...] thrombosis and management can be found on theAskMaMoboTapExpert site. [email or web address] IMPRESSION: Negative for acute DVT. [...] ventricular dysfunction are absent. Pablo Vo M.D. [facility] [place]EDURES Final Result * [...] Vo M.D. LAB BLOOD ADD-ON Final Result [facility] [address] [place] [address], [place] OW[facility] in [place] [address] [place] [address] * ECHO STRESS 2D WITH COLOR, DOPPLER [...] per Echocardiography Contrast Administration Protocol Reference Document [id number] Rev 11/04/2021. Patient met an inclusion criterion [...] administered per EchocardiographyContrast Administration Protocol Reference Document [id number] Rev11/04/2021. Patient met an inclusion criterion and [...] Li M.D. LAB BLOOD ADD-ON Final Result [facility] [address] [place] [address], [place] [facility] [facility] in [place] [address] [place] [address] from Last 3 Months or Most Recently Relevant to Health Maintenance Insurance MEDICA Advance Directives For more information, please contact: [phone] Documents on File Type Date Recorded Patient Cement Tile Maker Expl anation Advance Directives 08/08/2024 6:58 AM [...] Answer Comments Full Code: Discussed Care Teams Warehouse Logistics Coordinator Relationship Specialty Start Date End Date Jeff Reyes M.D. [address] [place] [phone] PCP - General 03/14/24
--- OUTSIDE RECORDS SUMMARY | 2025-02-05 13:39 | XMS_ITS | Encounter Summary ---
Author Organization [facility] Address [address] [place] [address] Care Team Providers Care Printing Equipment Mechanic Apprentice Name Role Phone Jeff Reyes M.D. Primary Care Provider [phone] Encounter Details Date Type Department Care Team (Latest Contact Info) Description 08/07/2024 Intake [facility] Social History Tobacco Use Types Packs/Day Years Used Date Smoking Tobacco: Former Cigarettes Q uit: 1977 Passive Smoke Exposure: Never Alcohol Use Standard Drinks/Week Comments Not Currently 1 (1 standard drink = 0.6 oz pur e alcohol) [facility] Utilities Answer Date Recorded In the past 12 months has e [employer], gas, oil, or water i'm[employer] threatened to shut off services in your [...] Sex Assigned at Male 06/26/2018 4:20 PM INSURANCE SALES PRODUCER Legal Sex Male 3:33 AM INSURANCE SALES PRODUCER Gender Identity Not on file Sexual Orientation Not on file documented as of this encounter Plan of Treatment Upcoming Encounters Date Type Department Care Team (Late st Contact Info) Description 02/06/2025 9:00 AM CDT Hospital Encounter Department of Radiology in [place], [place] [address] [address] Pablo Vo M.D. [address] [place] [phone] 02/21/2025 11:00 AM CDT Virtual Visit Department of Oncology in [place], [place] [address] [place] [phone] Pablo Vo M.D. [address] [place] [address] documented as of this encounter Visit Diagnoses Not on filedocumented in this encounter Additional Health Concerns Infection Onset Date Last Indicated Resolved Time MDR GNB 10/24/2024 10/24/2024 10/27/2024 6:33 AM CDT Assessment Noted Time PHQ-9 Depression Total Score: 10 018 11:00 AM CDT documented as of this encounter Care Teams Printing Equipment Mechanic Apprentice Relationship Specialty Start Date End Date Jeff Reyes M.D. [address] [place] [address] PCP - General 03/14/24 documented as of this encounter
--- OUTSIDE RECORDS SUMMARY | 2025-02-05 13:40 | XMS_ITS | Encounter Summary ---
Author Organization [facility] Address [address] [place] [address] Care Team Providers Care Weatherization Field Technician Name Role Phone Jeff Reyes M.D. Primary Care Provider [phone] Encounter Details Date Type Department Care Team (Late st Contact Info) Description 12/17/2024 Orders Only [facility] SELF TEST [facility] [address] [place] [phone] Jeff Reyes M.D. [address] [place] [address] Screening Cancer Colon Social History Tobacco Use Types Packs/Day Years Used Date Smoking Tobacco: Former Cigarettes Q uit: 1977 Passive Smoke Exposure: Never Alcohol Use Standard Drinks/Week Comments Not Currently 1 (1 standard drink = 0.6 oz pur e alcohol) [facility] Utilities Answer Date Recorded In the past 12 months has e [employer], gas, oil, or water [employer] threatened to shut off services in your [...] your living situation today? [facility] have [facility] place [facility] 11/08/2024 Education Answer Date Recorded What is the highest level of school you have completed or the highest degree you have received? 12th grade 10/18/2022 Sex and Gender Information Value Date Recorded Sex Assigned at Male 06/26/2018 4:20 PM SALESPERSON [employer] Legal Sex Male 3:33 AM SALESPERSON [employer] Gender Identity Not on file Sexual Orientation Not on file documented as of this encounter Plan of Treatment Upcoming Encounters Date Type Department Care Team (Late st Contact Info) Description 02/06/2025 9:00 AM CDT Hospital Encounter Department of Radiology in [place], [place] [address] [place] [address] Pablo Vo M.D. [address] [place] [address] 02/21/2025 11:00 AM CDT Virtual Visit Department of Oncology in [place], [place] [address] [place] [address] Pablo Vo M.D. [address] [facility] [place] [address] documented as of this encounter Visit Diagnoses Diagnosis Screening Cancer Colon documented in this encounter Additional Health Concerns Assessment Noted Time PHQ-9 Depression Total Score: 10 018 11:00 AM CDT documented as of this encounter Care Teams Weatherization Field Technician Relationship Specialty Start Date End Date Jeff Reyes M.D. [address] [place] [address] PCP - General 03/14/24 documented as of this encounter
--- OUTSIDE RECORDS SUMMARY | 2025-02-05 13:40 | XMS_ITS | Encounter Summary ---
Author Organization [facility] Address [address] [place] [address] Care Team Providers Care Media Production Manager Name Role Phone Jeff Reyes M.D. Primary Care Provider [phone] Encounter Details Date Type Department Care Team (Late st Contact Info) Description 01/21/2025 Clinical Communication Department of Oncology in [place], [place] [address] [place] [phone] Pablo Vo M.D. [address] [place] [phone] Social History Tobacco Use Types Packs/Day Years [...] your living situation today? I have a [facility] place to live 11/08/2024 Education Answer Date Recorded What is the highest level of school you have completed or the highest degree you have received? 12th grade 10/18/2022 Sex and Gender Information Value Date Recorded Sex Assigned at Male 06/26/2018 4:20 PM CLAIM SPECIALIST Legal Sex Male 3:33 AM CLAIM SPECIALIST Gender Identity Not on file Sexual Orientation Not on file documented as of this encounter Miscellaneous Notes * Telephone Encounter - Nadia Robetrson R.N. - 01/21/2025 2:02 PM CDT Left message [...] CDT Hospital Encounter Department of Radiology in [place], [place] [address] [place] [address] Pablo Vo M.D. [address] [place] [phone] 02/21/2025 11:00 AM CDT Virtual Visit Department of Oncology in [place], [place] [address] [place] [phone] Pablo Vo M.D. [address] [place] [phone] documented as of this encounter Visit Diagnoses Not on filedocumented in this encounter Additional Health Concerns Assessment Noted Time PHQ-9 Depression Total Score: 10 018 11:00 AM CDT documented as of this encounter Care Teams Media Production Manager Relationship Specialty Start Date End Date Jeff Reyes M.D. [address] [place] [address] PCP - General 03/14/24 documented as of this encounter
--- OUTSIDE RECORDS SUMMARY | 2025-02-05 13:40 | XMS_ITS | Encounter Summary ---
Author Organization [facility] Address [address] [place] [address] Care Team Providers Care Roll Sheeting Cutter Name Role Phone Jeff Reyes M.D. Primary Care Provider [phone] Reason for Visit * Reason Onset Date Comments Nurse call back 01/31/2025 Encounter Details Date Type Department Care Team (Late st Contact Info) Description 01/31/2025 Clinical Communication Department of Oncology in [place], [place] [address] [place] [phone] Pablo Vo M.D. [address] [place] [phone] Nurse call back Social History Tobacco Use Types Packs/Day Years [...] your living situation today? I have a [facility] place to live 11/08/2024 Education Answer Date Recorded What is the highest level of school you have completed or the highest degree you have received? 12th grade 10/18/2022 Sex and Gender Information Value Date Recorded Sex Assigned at Male 06/26/2018 4:20 PM BLAST FURNACE CHECKER Legal Sex Male 3:33 AM BLAST FURNACE CHECKER Gender Identity Not on file Sexual Orientation Not on file documented as of this encounter Plan of Treatment Upcoming Encounters Date Type Department Care Team (Late st Contact Info) Description 02/06/2025 9:00 AM CDT Hospital Encounter Department of Radiology in [place], [place] [address] [address] Pablo Vo M.D. [address] [place] [address] 02/21/2025 11:00 AM CDT Virtual Visit Department of Oncology in [place], [place] [address] [place] [address] Pablo Vo M.D. [address] [place] [address] documented as of this encounter Visit Diagnoses Not on filedocumented in this encounter Additional Health Concerns Assessment Noted Time PHQ-9 Depression Total Score: 10 018 11:00 AM CDT documented as of this encounter Care Teams Roll Sheeting Cutter Relationship Specialty Start Date End Date Jeff Reyes M.D. [address] [place] [phone] PCP - General 03/14/24 documented as of this encounter
--- NOTE | 2025-02-05 13:59 | ED.GENADULT ---
HPI - General Adult General Date Seen: 02/05/25 <Iris Wooten MD - Last Filed: 02/13/25 12:31> Chief complaint: Chest Pain <Iris Wooten MD - Last Filed: 02/13/25 12:31> Stated complaint: chest pain <Iris Wooten MD - Last Filed: 02/13/25 12:31> Time Seen by Provider: 02/05/25 12:47 <Iris Wooten MD - Last Filed: 02/13/25 12:31> History of Present Illness HPI narrative: Patient is a 75-year-old male, medically complex, with a history of MS, paralysis, sacral ulcer with associated osteomyelitis, cholecystitis with cholecystostomy tube, PE in October of this year, chronically anticoagulated, history of non-STEMI. He was at [facility] yesterday with abdominal pain, thought to be possibly related to dysfunction of his cholecystostomy tube and this was changed out. He was nontoxic at that time, had an abdominal CT scan and labs and was discharged back to his [facility]. He says that at 8:00 a.m. this morning he developed some pain in the center of his chest. This is pruritic, he says he does not have pain unless he takes a deep breath. He feels perhaps a little more short of breath than usual. He denies cough or fever. He was given nitroglycerin and aspirin at the facility without change in his symptoms. He does not smoke. He is full code. <Iris Wooten MD - Last Filed: 02/13/25 12:31> Related Data Home medications: Home Medications ?Medication ?Instructions ?Recorded ?Confirmed acetaminophen 500 mg tablet 1,000 mg PO TID 08/07/24 01/28/25 calcium carbonate (Zachary-Gest 400 mg PO BID 08/07/24 01/28/25 Antacid) cholecalciferol (vitamin D3) 25 25 mcg PO DAILY 08/07/24 01/28/25 mcg (1,000 unit) tablet (Vitamin D3) furosemide 40 mg tablet 40 mg PO DAILY 08/07/24 01/28/25 lisinopril 40 mg tablet 40 mg PO DAILY 08/07/24 01/28/25 metoprolol succinate 100 mg 100 mg PO DAILY 08/07/24 01/28/25 tablet,extended release 24 hr pantoprazole 40 mg tablet,delayed 40 mg PO BID 08/07/24 01/28/25 release polyethylene glycol 3350 17 17 g PO DAILY 08/07/24 01/28/25 gram/dose oral powder potassium chloride 10 mEq 10 meq PO BIDWM 08/07/24 01/28/25 capsule,extended release apixaban 5 mg tablet (Eliquis) 5 mg PO BID 11/16/24 01/28/25 atorvastatin 80 mg tablet 80 mg PO HS 11/16/24 01/28/25 bacitracin 500 unit/gram topical 1 applic topical BID 11/16/24 01/28/25 ointment baclofen 10 mg tablet 10 mg PO BID 11/16/24 01/28/25 diclofenac sodium 1 % topical gel 2 g topical BID PRN 11/16/24 01/28/25 furosemide 20 mg tablet 20 mg PO QPM 11/16/24 01/28/25 latanoprost 0.005 % eye drops 1 drp ophthalmic (eye) HS 11/16/24 01/28/25 ondansetron HCl 4 mg tablet 4 mg PO Q6H PRN 11/16/24 01/28/25 sennosides 8.6 mg-docusate sodium 2 tab-cap PO DAILY 11/16/24 01/28/25 50 mg tablet (Senna Plus) carbamide peroxide 6.5 % ear drops 5 drp otic (ear) Q7D 11/17/24 01/28/25 (Ear Wax Removal Kit) clotrimazole 1 % topical cream 1 applic topical BID 12/12/24 01/28/25 acetic acid 0.25 % irrigation See Rx Instructions .Route BID 01/04/25 01/28/25 solution ferrous sulfate 325 mg (65 mg 325 mg PO Q48H 01/04/25 01/28/25 iron) tablet metformin 500 mg tablet,extended 1,000 mg PO QPM 01/04/25 01/28/25 release 24 hr oxycodone 5 mg tablet 5 mg PO Q6H PRN 01/04/25 01/28/25 sennosides 8.6 mg tablet (senna) 17.2 mg PO DAILY 01/28/25 01/28/25 sodium chloride 0.9 % (flush) (BD ml 01/28/25 PosiFlush Normal Saline 0.9 % injection syringe) Previous Rx's ?Medication ?Instructions ?Recorded allopurinol 100 mg tablet 100 mg PO DAILY #30 tabs 11/19/24 ondansetron HCl 4 mg tablet 4 mg PO Q6H #20 tabs 01/28/25 <Iris Wooten MD - Last Filed: 02/13/25 12:31> Allergies/adverse reactions: Allergies Allergy/AdvReac Type Severity Reaction Status Date / Time Haemophilus B polysaccharide Allergy Unknown Verified 02/05/25 15:37 conj w vancomycin Allergy Unknown Verified 02/05/25 15:37 <Iris Wooten MD - Last Filed: 02/13/25 12:31> Review of Systems Status of ROS: Reports: 6 or more systems reviewed and unremarkable except as noted in History and below <Iris Wooten MD - Last Filed: 02/13/25 12:31> [facility] Medical History: Medical History Chronic anticoagulation ?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 (ICD-10) History of pulmonary embolism ?Z86.711 - Personal history of pulmonary embolism (ICD-10) Paraplegia ?G82.20 - Paraplegia, unspecified (ICD-10) Lymphedema ?I89.0 - Lymphedema, not elsewhere classified (ICD-10) Diabetes mellitus ?E11.9 - Type 2 diabetes mellitus without complications (ICD-10) Stage III pressure ulcer of sacral region ?L89.153 - Pressure ulcer of sacral region, stage 3 (ICD-10) Stage III pressure ulcer of buttock ?L89.303 - Pressure ulcer of unspecified buttock, stage 3 (ICD-10) Pressure ulcer of coccygeal region, stage 1 ?L89.151 - Pressure ulcer of sacral region, stage 1 (ICD-10) Neurogenic bowel ?K59.2 - Neurogenic bowel, not elsewhere classified (ICD-10) Hyperuricemia ?E79.0 - Hyperuricemia without signs of inflammatory arthritis and tophaceous disease (ICD-10) Hyperlipidemia ?E78.5 - Hyperlipidemia, unspecified (ICD-10) Hypertension ?I10 - Essential (primary) hypertension (ICD-10) Coronary artery disease ?I25.10 - Atherosclerotic heart disease of [place] coronary artery without angina pectoris (ICD-10) Fracture, intertrochanteric, right femur ?S72.141A - Displaced intertrochanteric fracture of right femur, initial encounter for closed fracture (ICD-10) Sleep apnea ?G47.30 - Sleep apnea, unspecified (ICD-10) Eason catheter in place ?Z97.8 - Presence of other specified devices (ICD-10) Neurogenic bladder ?N31.9 - Neuromuscular dysfunction of bladder, unspecified (ICD-10) Obesity ?E66.9 - Obesity, unspecified (ICD-10) Multiple sclerosis ?G35 - Multiple sclerosis (ICD-10) <Iris Wooten MD - Last Filed: 02/13/25 12:31> Surgical History: Surgical History H/O insertion of cholecystostomy tube ?Z98.890 - Other specified postprocedural states (ICD-10) <Iris Wooten MD - Last Filed: 02/13/25 12:31> Family History: Family History Father Coronary artery disease High blood pressure High cholesterol Sleep apnea <Iris Wooten MD - Last Filed: 02/13/25 12:31> Social History: Social History Narrative: Resident of [facility]. Daughter Malika is healthcare power of trademark attorney. Code status is DNR. Remote history of smoking What is your current living situation?: I presently have a place to live Problems where you live: no known problems Problems where you live details: NA In the past 12 months, utilities in danger of being shut off: no In past 12 months, lack of transportation kept you from medical appts, meetings, work, or getting things needed for daily living: no In the past 12 mos, have been you worried that your food would run out before you had money to buy more?: never true In the past 12 mos, the food you bought just didn't last and you didn't have money to buy more?: never true Highest level of school completed/degree received: 12th grade, no diploma Smoking Status: Former smoker What tobacco products do you use: cigarettes Smoking quit date/years: >15 years ago Do you use any of these nicotine containing products: None Second hand tobacco smoke exposure: No How often do you have a drink containing alcohol: never How often do you have six or more drinks on one occasion: Never AUDIT-C Alcohol total score: 0 Non-prescribed substance use: denies use Caffeine: Yes (tea and coffee) How often does anyone, including family, friends and others, physically hurt you: unable to answer How often does anyone, including family, friends and others, insult or talk down to you: unable to answer How often does anyone, including family, friends and others, threaten you with harm: unable to answer How often does anyone, including family, friends and others, scream or curse at you: unable to answer service: No <Iris Wooten MD - Last Filed: 02/13/25 12:31> Exam Narrative: Exam Narrative: Vital signs reviewed In general, alert, chronically ill but nontoxic male. He is breathing easily. Occasional hiccups. Head: Normocephalic, atraumatic. Eyes: Sclera clear. Pupils equal and reactive. ENT: Mucous membranes moist. Neck: Supple without adenopathy. Heart: Regular rate and rhythm without murmur. Lungs: Lungs are clear anteriorly. Exam limited. Abdomen: Soft, nontender to palpation. Site of recent cholecystostomy tube exchange with intact dressing, no drainage, bleeding or erythema. Extremities: Compression stockings in place. Neurologic: Alert, conversant. Speech fluent, face symmetric. Moves all extremities equally. Skin: Warm, dry well perfused. Affect: Flat. <Iris Wooten MD - Last Filed: 02/13/25 12:31> Const: Vital Signs, click to edit/add: Vital Signs - 24 hr 02/05/25 12:58 02/05/25 13:00 02/05/25 13:00 Temperature 97.1 F L Pulse Rate 109 H 109 H Pulse Rate [Pulse Oximeter] 115 H Respiratory Rate 20 Blood Pressure Blood Pressure [Ri ght Upper Arm] 118/68 Pulse Oximetry 94 95 92 Oxygen Delivery Me thod Room Air 02/05/25 13:01 02/05/25 13:15 02/05/25 13:30 Temperature Pulse Rate 108 H 105 H 104 H Pulse Rate [Pulse Oximeter] Respiratory Rate 14 12 Blood Pressure 119/57 L Blood Pressure [Ri ght Upper Arm] Pulse Oximetry 93 93 93 Oxygen Delivery [place] thod 02/05/25 13:31 02/05/25 13:45 02/05/25 14:00 Temperature Pulse Rate 102 H 101 H 99 Pulse Rate [Pulse Oximeter] Respiratory Rate 16 16 11 L Blood Pressure 115/56 L Blood Pressure [Ri ght Upper Arm] Pulse Oximetry 94 93 98 Oxygen Delivery Me thod 02/05/25 14:01 02/05/25 14:15 02/05/25 14:30 Temperature Pulse Rate 102 H 99 Pulse Rate [Pulse Oximeter] Respiratory Rate 16 12 15 Blood Pressure 130/71 Blood Pressure [Ri ght Upper Arm] Pulse Oximetry [address] [facility] 02/05/25 14:31 02/05/25 14:32 02/05/25 14:45 Temperature Pulse Rate 96 90 92 Pulse Rate [Pulse Oximeter] Respiratory Rate 12 14 17 Blood Pressure 108/58 L Blood Pressure [Ri ght Upper Arm] Pulse Oximetry 95 [address] [facility] 02/05/25 15:00 02/05/25 15:01 02/05/25 15:02 Temperature Pulse Rate 94 88 85 Pulse Rate [Pulse Oximeter] Respiratory Rate 18 15 13 Blood Pressure 124/54 L Blood Pressure [Ri ght Upper Arm] Pulse Oximetry [address] [facility] [facility] 02/05/25 15:15 02/05/25 15:33 02/05/25 15:34 Temperature Pulse Rate 98 95 93 Pulse Rate [Pulse Oximeter] Respiratory Rate 16 Blood Pressure Blood Pressure [Ri ght Upper Arm] Pulse Oximetry 96 93 Oxygen Delivery [place] thod 02/05/25 15:45 02/05/25 16:00 02/05/25 16:01 Temperature Pulse Rate 91 92 93 Pulse Rate [Pulse Oximeter] Respiratory Rate Blood Pressure 109/53 L Blood Pressure [Ri ght Upper Arm] Pulse Oximetry 94 93 93 Oxygen Delivery [place] thod 02/05/25 16:15 02/05/25 17:17 02/05/25 17:30 Temperature Pulse Rate 103 H 95 93 Pulse Rate [Pulse Oximeter] Respiratory Rate Blood Pressure Blood Pressure [Ri ght Upper Arm] Pulse Oximetry 98 92 91 Oxygen Delivery Me thod 02/05/25 17:32 Temperature Pulse Rate 96 Pulse Rate [Pulse Oximeter] Respiratory Rate Blood Pressure 144/65 H Blood Pressure [Ri ght Upper Arm] Pulse Oximetry 93 Oxygen Delivery Me thod <Iris Wooten MD - Last Filed: 02/13/25 12:31> Vital Signs, click to edit/add: Vital Signs - 24 hr 02/05/25 12:58 02/05/25 13:00 02/05/25 13:00 Temperature 97.1 F L Pulse Rate 109 H 109 H Pulse Rate [Pulse Oximeter] 115 H Respiratory Rate 20 Blood Pressure Blood Pressure [Ri ght Upper Arm] 118/68 Pulse Oximetry 94 95 92 Oxygen Delivery Me thod Room Air 02/05/25 13:01 02/05/25 13:15 02/05/25 13:30 Temperature Pulse Rate 108 H 105 H 104 H Pulse Rate [Pulse Oximeter] Respiratory Rate 14 12 Blood Pressure 119/57 L Blood Pressure [Ri ght Upper Arm] Pulse Oximetry 93 93 93 Oxygen Delivery Me thod 02/05/25 13:31 02/05/25 13:45 02/05/25 14:00 Temperature Pulse Rate 102 H 101 H 99 Pulse Rate [Pulse Oximeter] Respiratory Rate 16 16 11 L Blood Pressure 115/56 L Blood Pressure [Ri ght Upper Arm] Pulse Oximetry 94 93 98 Oxygen Delivery Me thod 02/05/25 14:01 02/05/25 14:15 02/05/25 14:30 Temperature Pulse Rate 102 H 99 Pulse Rate [Pulse Oximeter] Respiratory Rate 16 12 15 Blood Pressure 130/71 Blood Pressure [Ri ght Upper Arm] Pulse Oximetry 96 96 Oxygen Delivery Me thod 02/05/25 14:31 02/05/25 14:32 02/05/25 14:45 Temperature Pulse Rate 96 90 92 Pulse Rate [Pulse Oximeter] Respiratory Rate 12 14 17 Blood Pressure 108/58 L Blood Pressure [Ri ght Upper Arm] Pulse Oximetry 95 96 97 Oxygen Delivery Me thod 02/05/25 15:00 02/05/25 15:01 02/05/25 15:02 Temperature Pulse Rate 94 88 85 Pulse Rate [Pulse Oximeter] Respiratory Rate 18 15 13 Blood Pressure 124/54 L Blood Pressure [Ri ght Upper Arm] Pulse Oximetry 96 95 98 Oxygen Delivery Me thod 02/05/25 15:15 02/05/25 15:33 02/05/25 15:34 Temperature Pulse Rate 98 95 93 Pulse Rate [Pulse Oximeter] Respiratory Rate 16 Blood Pressure Blood Pressure [Ri ght Upper Arm] Pulse Oximetry 96 93 Oxygen Delivery Me thod 02/05/25 15:45 02/05/25 16:00 02/05/25 16:01 Temperature Pulse Rate 91 92 93 Pulse Rate [Pulse Oximeter] Respiratory Rate Blood Pressure 109/53 L Blood Pressure [Ri ght Upper Arm] Pulse Oximetry 94 93 93 Oxygen Delivery Me thod 02/05/25 16:15 02/05/25 17:17 02/05/25 17:30 Temperature Pulse Rate 103 H 95 93 Pulse Rate [Pulse Oximeter] Respiratory Rate Blood Pressure Blood Pressure [Ri ght Upper Arm] Pulse Oximetry 98 92 91 Oxygen Delivery Me thod 02/05/25 17:32 Temperature Pulse Rate 96 Pulse Rate [Pulse Oximeter] Respiratory Rate Blood Pressure 144/65 H Blood Pressure [Ri ght Upper Arm] Pulse Oximetry 93 Oxygen Delivery Me thod <Princess Riley MD - Last Filed: 02/05/25 19:28> Course Course ED Course: Patient presents with pleuritic chest pain in the setting of history of PE and non-STEMI. Vital signs notable for mild tachycardia. He is afebrile. He does have sinus tachycardia on EKG with a ventricular rate of 112. No acute ST segment changes. T-waves are unremarkable. I think D-dimer is likely of limited utility in this patient, so I am just going to get a CT scan of his chest to evaluate for PE as well as for other potential causes for his chest pain such as pneumonia, pleural effusion, pulmonary edema, pneumothorax etcetera. Will get a troponin. His pain has been present now for about 6 hours, so a single troponin will likely be enough to rule out acute coronary syndrome. His abdominal exam is benign and he does not have any abdominal pain. I doubt that this represents referred pain from intra-abdominal pathology. Overall, evaluation for life-threatening causes for chest pain is negative. CT of the chest by my review did not show evidence of pulmonary embolism or significant consolidation. Read as negative for PE by Radiology, perhaps some bronchiolitis. His labs today show an elevated CRP, elevated lactate, elevated white blood cell count. Looking back through his previous records, this is a change for him. Despite his medical complexity he does not typically run abnormal labs. Looking through his [place] records with this noted previous history of osteomyelitis most recently seen on CT scan at the beginning of January, I did elect to do an MRI to further evaluate his osteomyelitis because of concerns about possibly progressive systemic illness related to this. I have signed this out to the oncoming physician to follow-up, final disposition will be dependent on results of his MRI and clinical condition. <Iris Wooten MD - Last Filed: 02/13/25 12:31> Reevaluation(s) Reevaluation #1: I was asked to follow-up on the MRI results of this patient. MRI does show osteomyelitis as well as myositis. This, along with an elevated white cell count, elevated lactate and CRP, most importantly, the fact that the patient has paraplegia and cannot reduce the pressure in his back, I do not think that the patient is a candidate for outpatient therapy at this time. I did start meropenem and metronidazole as patient is allergic to vancomycin. Patient is too medically complex to stay at our facility, requires infectious disease consult given recurrent infections. Called [facility], which is where the patient generally gets his care, who stated that they are on diversion and will not accept the patient for transfer. Spoke to Dr. Conklin at [facility] who will accept the patient for transfer. Up to an 8 hour bed wait. <Princess Riley MD - Last Filed: 02/05/25 19:28> Vital Signs Vital signs: Initial Vital Signs Pulse Rate 109 H 02/05/25 12:58 Pulse Oximetry 94 02/05/25 12:58 Vital Signs Pulse Rate 109 H 02/05/25 12:58 Pulse Oximetry 94 02/05/25 12:58 Temperature 97.1 F L 02/05/25 13:00 Pulse Rate 94 02/05/25 22:32 Respiratory Rate 22 02/05/25 22:45 Blood Pressure 126/56 L 02/05/25 22:32 Pulse Oximetry 93 02/05/25 22:32 Oxygen Delivery Method Room Air 02/05/25 13:00 <Iris Wooten MD - Last Filed: 02/13/25 12:31> Initial Vital Signs Pulse Rate 109 H 02/05/25 12:58 Pulse Oximetry 94 02/05/25 12:58 Vital Signs Pulse Rate 109 H 02/05/25 12:58 Pulse Oximetry 94 02/05/25 12:58 Temperature 97.1 F L 02/05/25 13:00 Pulse Rate 94 02/05/25 22:32 Respiratory Rate 22 02/05/25 22:45 Blood Pressure 126/56 L 02/05/25 22:32 Pulse Oximetry 93 02/05/25 22:32 Oxygen Delivery Method Room Air 02/05/25 13:00 <Princess Riley MD - Last Filed: 02/05/25 19:28> Medications Administered Medications: Discontinued Medications Generic Name Dose Route Start Last Admin Trade Name Freq PRN Reason Stop Dose Admin Diphenhydramine HCl 25 mg 02/05/25 13:38 02/05/25 13:57 Diphenhydramine 50 Mg/Ml Inj IVP 02/05/25 13:39 25 mg ONCE ONE Administration Hydrocortisone Sodium Succinate 200 mg 02/05/25 13:38 02/05/25 14:01 Hydrocortisone Sod Succinate 50 Mg/Ml Inj IVP 02/05/25 13:39 200 mg ONCE ONE Administration Sodium Chloride 1,000 mls @ 1,000 mls/hr 02/05/25 17:00 02/05/25 19:15 0.9 % Sodium Chloride 1000 Ml IV 02/05/25 17:59 Infused .Q1H BERONICA Infusion Meropenem 1 gm/ Sodium 100 mls @ 200 mls/hr 02/05/25 18:20 02/05/25 20:50 Chloride IVPB 02/05/25 18:21 Infused ONCE ONE Infusion Metronidazole 500 mg in 100 mls @ 100 mls/hr 02/05/25 18:21 02/05/25 20:19 Metronidazole IVPB 02/05/25 19:20 Infused ONCE ONE Infusion <Iris Wooten MD - Last Filed: 02/13/25 12:31> Discontinued Medications Generic Name Dose Route Start Last Admin Trade Name Freq PRN Reason Stop Dose Admin Diphenhydramine HCl 25 mg 02/05/25 13:38 02/05/25 13:57 Diphenhydramine 50 Mg/Ml Inj IVP 02/05/25 13:39 25 mg ONCE ONE Administration Hydrocortisone Sodium Succinate 200 mg 02/05/25 13:38 02/05/25 14:01 Hydrocortisone Sod Succinate 50 Mg/Ml Inj IVP 02/05/25 13:39 200 mg ONCE ONE Administration Sodium Chloride 1,000 mls @ 1,000 mls/hr 02/05/25 17:00 02/05/25 19:15 0.9 % Sodium Chloride 1000 Ml IV 02/05/25 17:59 Infused .Q1H BERONICA Infusion Meropenem 1 gm/ Sodium 100 mls @ 200 mls/hr 02/05/25 18:20 02/05/25 20:50 Chloride IVPB 02/05/25 18:21 Infused ONCE ONE Infusion Metronidazole 500 mg in 100 mls @ 100 mls/hr 02/05/25 18:21 02/05/25 20:19 Metronidazole IVPB 02/05/25 19:20 Infused ONCE ONE Infusion <Princess Riley MD - Last Filed: 02/05/25 19:28> Medical Decision Making Lab Data Lab results reviewed: Yes I reviewed the patient's lab results <Iris Wooten MD - Last Filed: 02/13/25 12:31> Labs: Lab Results 02/05/25 02/05/25 Range/Units 13:38 16:19 WBC 14.21 H (4.50-11.00) K/uL RBC 4.06 L (4.30-5.90) m/uL Hgb 10.4 L (13.5-17.5) gm/dL Hct 34.6 L (37.0-53.0) % MCV 85 (80-100) fL MCH 26 (26-34) pg MCHC 30 L (32-36) gm/dL RDW Coeff of Rey 18.0 H (11.5-15.5) % Plt Count 234 (140-440) K/uL Neut % (Auto) 85.4 H (42.0-72.0) % Lymph % (Auto) 7.7 L (20-44) % Irion % (Auto) 5.8 (0.0-11.0) % Eos % (Auto) 0.8 (0.0-7.0) % Baso % (Auto) 0.1 (0.0-3.0) % Neut # (Auto) 12.10 H (1.7-7.0) K/uL Lymph # (Auto) 1.10 (0.90-2.90) K/uL Irion # (Auto) 0.80 (0.00-0.90) K/UL Eos # (Auto) 0.10 (0.00-0.50) K/uL Baso # (Auto) 0.00 (0.00-0.30) K/uL Abs Immat Gran (auto) 0.00 (0.00-0.30) K/uL Imm/Tot Granulo (auto) 0.2 % Sodium 137 (135-149) mmol/L Potassium 4.4 (3.6-5.1) mmol/L Chloride 99 (96-114) mmol/L Carbon Dioxide 30 (20-32) mmol/L Anion Gap 8 (7-15) mEq/L BUN 17 (7-30) mg/dL Creatinine 1.0 (0.5-1.5) mg/dL Estimated Creat Clear 70.06 Estimated GFR 78 ml/min Glucose 184 H (60-115) mg/dL Lactate 3.2 H 2.5 H (0.5-1.9) mmol/L Calcium 9.5 (8.4-10.6) mg/dL C-Reactive Protein 15.7 H (0.5-1.0) mg/dL Procalcitonin 0.19 (<0.50) ng/mL POC Troponin I 0.00 L (0.01-0.04) ng/ml <Iris Wooten MD - Last Filed: 02/13/25 12:31> Lab Results 02/05/25 02/05/25 Range/Units 13:38 16:19 WBC 14.21 H (4.50-11.00) K/uL RBC 4.06 L (4.30-5.90) m/uL Hgb 10.4 L (13.5-17.5) gm/dL Hct 34.6 L (37.0-53.0) % MCV 85 (80-100) fL MCH 26 (26-34) pg MCHC 30 L (32-36) gm/dL RDW Coeff of Rey 18.0 H (11.5-15.5) % Plt Count 234 (140-440) K/uL Neut % (Auto) 85.4 H (42.0-72.0) % Lymph % (Auto) 7.7 L (20-44) % Irion % (Auto) 5.8 (0.0-11.0) % Eos % (Auto) 0.8 (0.0-7.0) % Baso % (Auto) 0.1 (0.0-3.0) % Neut # (Auto) 12.10 H (1.7-7.0) K/uL Lymph # (Auto) 1.10 (0.90-2.90) K/uL Irion # (Auto) 0.80 (0.00-0.90) K/UL Eos # (Auto) 0.10 (0.00-0.50) K/uL Baso # (Auto) 0.00 (0.00-0.30) K/uL Abs Immat Gran (auto) 0.00 (0.00-0.30) K/uL Imm/Tot Granulo (auto) 0.2 % Sodium 137 (135-149) mmol/L Potassium 4.4 (3.6-5.1) mmol/L Chloride 99 (96-114) mmol/L Carbon Dioxide 30 (20-32) mmol/L Anion Gap 8 (7-15) mEq/L BUN 17 (7-30) mg/dL Creatinine 1.0 (0.5-1.5) mg/dL Estimated Creat Clear 70.06 Estimated GFR 78 ml/min Glucose 184 H (60-115) mg/dL Lactate 3.2 H 2.5 H (0.5-1.9) mmol/L Calcium 9.5 (8.4-10.6) mg/dL C-Reactive Protein 15.7 H (0.5-1.0) mg/dL Procalcitonin 0.19 (<0.50) ng/mL POC Troponin I 0.00 L (0.01-0.04) ng/ml <Princess Riley MD - Last Filed: 02/05/25 19:28> Imaging Data Pelvic MRI: Attestation: I have reviewed the pertinent imaging results. <Princess Riley MD - Last Filed: 02/05/25 19:28> Radiologist's impression: Technique: MRI of the pelvis performed without intravenous contrast at 1.5 sherlyn Comparison: 01/28/2025 CT of the abdomen and pelvis Findings: There is a 5 centimeter ulcer overlying and extending to the bone of the left ischial tuberosity. There is confluent decreased T1 marrow signal and edema signal within the left ischial tuberosity compatible with osteomyelitis (4/34). There is a 3.2 centimeter ulcer overlying and extending adjacent to the bone of the left posterior medial iliac bone. There is a small amount of adjacent confluent decreased T1 marrow signal and edema signal within the left posterior medial iliac bone compatible with osteomyelitis (4/6 and 5/4). There is prominent soft tissue edema throughout the left thigh adductor musculature and the left obturator musculature compatible with myositis, presumably infectious myositis given adjacent findings of osteomyelitis. Partially imaged degenerative change of the lumbosacral spine. Mild degenerative change of the sacroiliac joints and pubic symphysis. Mild degenerative change of the left hip. Status post ORIF of the right proximal femur with susceptibility artifact from metallic hardware largely obscuring the structures of the right proximal femur and right hip. Low-grade partial tearing of the left common hamstring tendon. The bladder has been decompressed with a Eason catheter. Trace gas in the bladder is presumably related to instrumentation. There is trace presacral soft tissue edema. There is diffuse [id number] fatty infiltration throughout the visualized musculature. Slight muscular edema throughout the field of view. Impression: 1. Osteomyelitis of the left ischial tuberosity deep to a ulcer and adjacent soft tissue infection/myositis. 2. Small focus of osteomyelitis at the left posteromedial iliac bone deep to a second ulcer. 3. Low-grade partial tearing of the left common hamstring tendon. <Princess Riley MD - Last Filed: 02/05/25 19:28> CT scan - chest: Attestation: I have reviewed the pertinent imaging results. <Iris Wooten MD - Last Filed: 02/13/25 12:31> Radiologist's impression: Patient: Ren Ramirez MR#: [id number] : 1950 Acct:[id number] Loc: ED Service Date: 02/05/[address]: Ordering Physician: Iris Wooten M.D. Date of Service: 02/05/25 Procedure(s): CT angio chest PE protocol Accession Number(s): [id number] cc: Iris Wooten M.D.; Bijan Crawford M.D.~ For Patients: As a result of the Century Cures Act, medical imaging exams and procedure reports are released immediately into your electronic medical record. You may view this report before your referring provider. If you have questions, please contact your health care provider. INDICATION: Dyspnea. Chest pain. TECHNIQUE: Multiplanar CT pulmonary angiogram was performed after the administration of 95 mL of Isovue 370 intravenous contrast. COMPARISON: CTA chest 08/07/2024. FINDINGS: Lower neck: The visualized thyroid is unremarkable. Cardiovascular: Contrast opacification of the pulmonary arterial tree is adequate. Heart size is normal. Thoracic aorta and pulmonary artery are normal in caliber. Moderate atherosclerotic calcifications of the aortic arch. Dense coronary arterial calcifications. No pulmonary embolus. Mediastinum and lymph nodes: Unremarkable. No pathologic mediastinal or hilar lymphadenopathy by size criteria. Lungs: No focal consolidation. Tree-in-bud nodularity at the right lower lobe. [id number] pulmonary emphysema. Dependent atelectasis. Linear bandlike opacification of the lung bases bilaterally, likely subsegmental atelectasis and/or scarring. Trachea: Patent and midline. Mild diffuse peribronchial wall thickening. Pleura: No pleural effusions or pneumothorax Chest wall: Unremarkable. Prominent axillary lymph nodes that do not meet size criteria for lymphadenopathy. Bones: No acute osseous abnormalities. Mild degenerative changes of the thoracic spine. Upper abdomen: Percutaneous cholecystostomy tube. No acute findings in the visualized upper abdomen. No reflux of contrast material into the IVC. IMPRESSION: 1. No pulmonary embolus. No CT evidence of right heart strain. 2. Tree-in-bud nodularity of the right lower lobe, suggestive of a infectious or inflammatory bronchiolitis. 3. Zlxe-qq-[id number] pulmonary emphysema. 4. Dense coronary arterial calcifications. Please note that all CT scans at this facility use dose modulation, iterative reconstruction, and/or weight-based dosing when appropriate to reduce radiation dose to as low as reasonably achievable. Dictated by Armando Fitzpatrick MD @ 02/05/2025 3:58:57 PM <Iris Wooten MD - Last Filed: 02/13/25 12:31> Discharge Plan Discharge Clinical Impression: Osteomyelitis, Chest pain, Paraplegia <Iris Wooten MD - Last Filed: 02/13/25 12:31> Prescriptions: No Action bacitracin 500 unit/gram ointment 1 applic topical BID sennosides-docusate sodium [Senna Plus] 8.6-50 mg tablet 2 tab-cap PO DAILY Patient Comments: plus prn baclofen 10 mg tablet 10 mg PO BID Eliquis 5 mg tablet 5 mg PO BID atorvastatin 80 mg tablet 80 mg PO HS latanoprost 0.005 % drops 1 drp ophthalmic (eye) HS Rx Instructions: BOTH EYES furosemide 20 mg tablet 20 mg PO QPM ondansetron HCl 4 mg tablet 4 mg PO Q6H PRN diclofenac sodium 1 % gel 2 g topical BID PRN Ear Wax Removal Kit 6.5 % drops 5 drp otic (ear) Q7D Patient Comments: every Monday allopurinol 100 mg Tablet 100 mg PO DAILY Qty: 30 0RF clotrimazole 1 % cream 1 applic topical BID sennosides [senna] 8.6 mg tablet 17.2 mg PO DAILY sodium chloride 0.9 % (flush) [BD PosiFlush Normal Saline 0.9] Syringe Patient Comments: [NO ORIGINAL SIG] ondansetron HCl 4 mg tablet 4 mg PO Q6H Qty: 20 0RF furosemide 40 mg tablet 40 mg PO DAILY potassium chloride 10 mEq capsule, extended release 10 meq PO BIDWM metoprolol succinate 100 mg tablet extended release 24 hr 100 mg PO DAILY acetaminophen 500 mg tablet 1,000 mg PO TID pantoprazole 40 mg tablet,delayed release (DR/EC) 40 mg PO BID calcium carbonate [Zachary-Gest Antacid] 200 mg calcium (500 mg) tablet,chewable 400 mg PO BID polyethylene glycol 3350 17 gram/dose powder 17 g PO DAILY Patient Comments: plus prn lisinopril 40 mg tablet 40 mg PO DAILY cholecalciferol (vitamin D3) [Vitamin D3] 25 mcg (1,000 unit) tablet 25 mcg PO DAILY acetic acid 0.25 % solution See Rx Instructions .ROUTE BID Patient Comments: [NO ORIGINAL SIG] Rx Instructions: 1 APPLICATION twice a day AND PRN TO BUTTOCK WOUND oxycodone 5 mg tablet 5 mg PO Q6H PRN ferrous sulfate 325 mg (65 mg iron) Tablet 325 mg PO Q48H metformin 500 mg Tablet Extended Release 24 Hr 1,000 mg PO QPM <Iris Wooten MD - Last Filed: 02/13/25 12:31> Follow Up/Referrals: Bijan Crawford MD [Primary Care Provider, Family Practice] <Iris Wooten MD - Last Filed: 02/13/25 12:31>
[2025-02-05] MEDS: HYDROCORTISONE SOD SUCCINATE 50 MG/ML inj 200 MG IVP (14:01)
[2025-02-05 14:32] LABS: Lactate Sepsis w/Reflex* 3.2 mmol/L (0.5-1.9)
[2025-02-05 14:39] LABS: Hematocrit* 34.6 % (37.0-53.0); Hemoglobin* 10.4 gm/dL (13.5-17.5); Immature Granulocytes Pct Auto 0.2 %; Lymphocytes Absolute Auto 1.10 K/uL (0.90-2.90); Mean Corpuscular HGB Conc 30 gm/dL (32-36); Mean Corpuscular Hemoglobin 26 pg (26-34); Mean Corpuscular Volume 85 fL (80-100); RDW Coefficient of Variation % 18.0 % (11.5-15.5); Red Blood Count* 4.06 m/uL (4.30-5.90); White Blood Count* 14.21 K/uL (4.50-11.00)
[2025-02-05 14:41] LABS: Troponin, Point-of-Care* 0.00 ng/ml (0.01-0.04)
[2025-02-05 14:42] LABS: Immature Granulocytes Abs Auto 0.00 K/uL (0.00-0.30); Slide Review Reflex No
[2025-02-05 14:49] LABS: Chloride* 99 mmol/L (96-114); Potassium* 4.4 mmol/L (3.6-5.1); Sodium* 137 mmol/L (135-149)
[2025-02-05 14:52] LABS: Anion Gap 8 mEq/L (7-15); Blood Urea Nitrogen* 17 mg/dL (7-30); Calcium* 9.5 mg/dL (8.4-10.6); Carbon Dioxide* 30 mmol/L (20-32); Creatinine* 1.0 mg/dL (0.5-1.5); Est. Creatinine Clearance* 70.06; Estimated Glomerular Filt Rate 78 ml/min; Glucose* 184 mg/dL (60-115)
[2025-02-05 15:10] LABS: Procalcitonin* 0.19 ng/mL (<0.50)
--- NOTE | 2025-02-05 16:07 | CRLHL7_ITS ---
For Patients: As a result of the Century Cures Act, medical imaging exams and procedure reports are released immediately into your electronic medical record. You may view this report before your referring provider. If you have questions, please contact your health care provider. Indication: Wound to the left ischium. Concern for osteomyelitis. Technique: MRI of the pelvis performed without intravenous contrast at 1.5 sherlyn Comparison: 01/28/2025 CT of the abdomen and pelvis Findings: There is a 5 centimeter ulcer overlying and extending to the bone of the left ischial tuberosity. There is confluent decreased T1 marrow signal and edema signal within the left ischial tuberosity compatible with osteomyelitis (4/34). There is a 3.2 centimeter ulcer overlying and extending adjacent to the bone of the left posterior medial iliac bone. There is a small amount of adjacent confluent decreased T1 marrow signal and edema signal within the left posterior medial iliac bone compatible with osteomyelitis (4/6 and 5/4). There is prominent soft tissue edema throughout the left thigh adductor musculature and the left obturator musculature compatible with myositis, presumably infectious myositis given adjacent findings of osteomyelitis. Partially imaged degenerative change of the lumbosacral spine. Mild degenerative change of the sacroiliac joints and pubic symphysis. Mild degenerative change of the left hip. Status post ORIF of the right proximal femur with susceptibility artifact from metallic hardware largely obscuring the structures of the right proximal femur and right hip. Low-grade partial tearing of the left common hamstring tendon. The bladder has been decompressed with a Eason catheter. Trace gas in the bladder is presumably related to instrumentation. There is trace presacral soft tissue edema. There is diffuse [id number]-izshqeks fatty infiltration throughout the visualized musculature. Slight muscular edema throughout the field of view. Impression: 1. Osteomyelitis of the left ischial tuberosity deep to a ulcer and adjacent soft tissue infection/myositis. 2. Small focus of osteomyelitis at the left posteromedial iliac bone deep to a second ulcer. 3. Low-grade partial tearing of the left common hamstring tendon. Dictated by Pedro Madrigal MD @ 02/05/2025 6:05:01 PM (Electronically Signed)
[2025-02-05 16:24] LABS: Lactate Sepsis 2 Hour 2.5 mmol/L (0.5-1.9)
--- NOTE | 2025-02-05 18:19 | ED.GENADULT ---
HPI - General Adult General Chief complaint: Chest Pain Stated complaint: chest pain Time Seen by Provider: 02/05/25 12:47 Related Data Home Medications ?Medication ?Instructions ?Recorded ?Confirmed calcium carbonate (Zachary-Gest 400 mg PO BID PRN 08/07/24 02/21/25 Antacid) cholecalciferol (vitamin D3) 25 25 mcg PO DAILY 08/07/24 02/21/25 mcg (1,000 unit) tablet (Vitamin D3) furosemide 40 mg tablet 40 mg PO DAILY 08/07/24 02/21/25 lisinopril 40 mg tablet 40 mg PO DAILY 08/07/24 02/21/25 metoprolol succinate 100 mg 100 mg PO DAILY 08/07/24 02/21/25 tablet,extended release 24 hr pantoprazole 40 mg tablet,delayed 40 mg PO BID 08/07/24 02/21/25 release polyethylene glycol 3350 17 17 g PO DAILY 08/07/24 02/21/25 gram/dose oral powder apixaban 5 mg tablet (Eliquis) 5 mg PO BID 11/16/24 02/21/25 atorvastatin 80 mg tablet 80 mg PO HS 11/16/24 02/21/25 bacitracin 500 unit/gram topical 1 applic topical BID 11/16/24 02/21/25 ointment baclofen 10 mg tablet 10 mg PO BID 11/16/24 02/21/25 latanoprost 0.005 % eye drops 1 drp ophthalmic (eye) HS 11/16/24 02/21/25 sennosides 8.6 mg-docusate sodium 2 tab-cap PO DAILY PRN 11/16/24 02/21/25 50 mg tablet (Senna Plus) carbamide peroxide 6.5 % ear drops 5 drp otic (ear) Q7D PRN 11/17/24 02/21/25 (Ear Wax Removal Kit) clotrimazole 1 % topical cream 1 applic topical BID 12/12/24 02/21/25 acetic acid 0.25 % irrigation See Rx Instructions .Route BID 01/04/25 02/21/25 solution ferrous sulfate 325 mg (65 mg 325 mg PO Q48H 01/04/25 02/21/25 iron) tablet metformin 500 mg tablet,extended 1,000 mg PO QPM 01/04/25 02/21/25 release 24 hr oxycodone 5 mg tablet 5 mg PO Q6H PRN 01/04/25 02/21/25 sennosides 8.6 mg tablet (senna) 17.2 mg PO DAILY PRN 01/28/25 02/21/25 ondansetron HCl 4 mg tablet 4 mg PO BID 02/21/25 02/21/25 Previous Rx's ?Medication ?Instructions ?Recorded allopurinol 100 mg tablet 100 mg PO DAILY #30 tabs 11/19/24 Allergies Allergy/AdvReac Type Severity Reaction Status Date / Time Haemophilus B polysaccharide Allergy Unknown Verified 02/05/25 15:37 conj w vancomycin Allergy Unknown [facility]25 15[facility] History Chronic anticoagulation ?Z79.01 - cigarette packer (current) use of anticoagulants (ICD-10) History of pulmonary embolism ?Z86.711 - Personal history of pulmonary embolism (ICD-10) Paraplegia ?G82.20 - Paraplegia, unspecified (ICD-10) Lymphedema ?I89.0 - Lymphedema, not elsewhere classified (ICD-10) Diabetes mellitus ?E11.9 - Type 2 diabetes mellitus without complications (ICD-10) Stage III pressure ulcer of sacral region ?L89.153 - Pressure ulcer of sacral region, stage 3 (ICD-10) Stage III pressure ulcer of buttock ?L89.303 - Pressure ulcer of unspecified buttock, stage 3 (ICD-10) Pressure ulcer of coccygeal region, stage 1 ?L89.151 - Pressure ulcer of sacral region, stage 1 (ICD-10) Neurogenic bowel ?K59.2 - Neurogenic bowel, not elsewhere classified (ICD-10) Hyperuricemia ?E79.0 - Hyperuricemia without signs of inflammatory arthritis and tophaceous disease (ICD-10) Hyperlipidemia ?E78.5 - Hyperlipidemia, unspecified (ICD-10) Hypertension ?I10 - Essential (primary) hypertension (ICD-10) Coronary artery disease ?I25.10 - Atherosclerotic heart disease of [place] coronary artery without angina pectoris (ICD-10) Fracture, intertrochanteric, right femur ?S72.141A - Displaced intertrochanteric fracture of right femur, initial encounter for closed fracture (ICD-10) Sleep apnea ?G47.30 - Sleep apnea, unspecified (ICD-10) Eason catheter in place ?Z97.8 - Presence of other specified devices (ICD-10) Neurogenic bladder ?N31.9 - Neuromuscular dysfunction of bladder, unspecified (ICD-10) Obesity ?E66.9 - Obesity, unspecified (ICD-10) Multiple sclerosis ?G35 - Multiple sclerosis (ICD-10) Surgical History H/O insertion of cholecystostomy tube ?Z98.890 - Other specified postprocedural states (ICD-10) Family History Father Coronary artery disease High blood pressure High cholesterol Sleep apnea Social History Narrative: Resident of [facility]. Daughter Malika is healthcare power of attorney general. Code status is DNR. Remote history of smoking What is your current living situation?: I presently have a place to live Problems where you live: no known problems Problems where you live details: NA In the past 12 months, utilities in danger of being shut off: no In past 12 months, lack of transportation kept you from medical appts, meetings, work, or getting things needed for daily living: no In the past 12 mos, have been you worried that your food would run out before you had money to buy more?: never true In the past 12 mos, the food you bought just didn't last and you didn't have money to buy more?: never true Highest level of school completed/degree received: 12th grade, no diploma Smoking Status: Former smoker What tobacco products do you use: cigarettes Smoking quit date/years: >15 years ago Do you use any of these nicotine containing products: None Second hand tobacco smoke exposure: No How often do you have a drink containing alcohol: never How often do you have six or more drinks on one occasion: Never AUDIT-C Alcohol total score: 0 Non-prescribed substance use: denies use Caffeine: Yes (tea and coffee) How often does anyone, including family, friends and others, physically hurt you: unable to answer How often does anyone, including family, friends and others, insult or talk down to you: unable to answer How often does anyone, including family, friends and others, threaten you with harm: unable to answer How often does anyone, including family, friends and others, scream or curse at you: unable to answer service: No Exam Const: Vital Signs, click to edit/add: Vital Signs - 24 hr 02/05/25 12:58 02/05/25 13:00 02/05/25 13:00 Temperature 97.1 F L Pulse Rate 109 H 109 H Pulse Rate [Pulse Oximeter] 115 H Respiratory Rate 20 Blood Pressure Blood Pressure [Ri ght Upper Arm] 118/68 Pulse Oximetry 94 95 92 Oxygen Delivery Me thod Room Air 02/05/25 13:01 02/05/25 13:15 02/05/25 13:30 Temperature Pulse Rate 108 H 105 H 104 H Pulse Rate [Pulse Oximeter] Respiratory Rate 14 12 Blood Pressure 119/57 L Blood Pressure [Ri ght Upper Arm] Pulse Oximetry 93 93 93 Oxygen Delivery Me thod 02/05/25 13:31 02/05/25 13:45 02/05/25 14:00 Temperature Pulse Rate 102 H 101 H 99 Pulse Rate [Pulse Oximeter] Respiratory Rate 16 16 11 L Blood Pressure 115/56 L Blood Pressure [Ri ght Upper Arm] Pulse Oximetry 94 93 98 Oxygen Delivery Me thod 02/05/25 14:01 02/05/25 14:15 02/05/25 14:30 Temperature Pulse Rate 102 H 99 Pulse Rate [Pulse Oximeter] Respiratory Rate 16 12 15 Blood Pressure 130/71 Blood Pressure [Ri ght Upper Arm] Pulse Oximetry 96 96 Oxygen Delivery Me thod 02/05/25 14:31 02/05/25 14:32 02/05/25 14:45 Temperature Pulse Rate 96 90 92 Pulse Rate [Pulse Oximeter] Respiratory Rate 12 14 17 Blood Pressure 108/58 L Blood Pressure [Ri ght Upper Arm] Pulse Oximetry 95 96 97 Oxygen Delivery Me thod 02/05/25 15:00 02/05/25 15:01 02/05/25 15:02 Temperature Pulse Rate 94 88 85 Pulse Rate [Pulse Oximeter] Respiratory Rate 18 15 13 Blood Pressure 124/54 L Blood Pressure [Ri ght Upper Arm] Pulse Oximetry 96 95 98 Oxygen Delivery Me thod 02/05/25 15:15 02/05/25 15:33 02/05/25 15:34 Temperature Pulse Rate 98 95 93 Pulse Rate [Pulse Oximeter] Respiratory Rate 16 Blood Pressure Blood Pressure [Ri ght Upper Arm] Pulse Oximetry 96 93 Oxygen Delivery Me thod 02/05/25 15:45 02/05/25 16:00 02/05/25 16:01 Temperature Pulse Rate 91 92 93 Pulse Rate [Pulse Oximeter] Respiratory Rate Blood Pressure 109/53 L Blood Pressure [Ri ght Upper Arm] Pulse Oximetry 94 93 93 Oxygen Delivery Me thod 02/05/25 16:15 02/05/25 17:17 02/05/25 17:30 Temperature Pulse Rate 103 H 95 93 Pulse Rate [Pulse Oximeter] Respiratory Rate Blood Pressure Blood Pressure [Ri ght Upper Arm] Pulse Oximetry 98 92 91 Oxygen Delivery Me thod 02/05/25 17:32 Temperature Pulse Rate 96 Pulse Rate [Pulse Oximeter] Respiratory Rate Blood Pressure 144/65 H Blood Pressure [Ri ght Upper Arm] Pulse Oximetry 93 Oxygen Delivery Me thod Course Vital Signs Vital signs: Initial Vital Signs Pulse Rate 109 H 02/05/25 12:58 Pulse Oximetry 94 02/05/25 12:58 Vital Signs Pulse Rate 109 H 02/05/25 12:58 Pulse Oximetry 94 02/05/25 12:58 Temperature 97.1 F L 02/05/25 13:00 Pulse Rate 94 02/05/25 22:32 Respiratory Rate 22 02/05/25 22:45 Blood Pressure 126/56 L 02/05/25 22:32 Pulse Oximetry 93 02/05/25 22:32 Oxygen Delivery Method Room Air 02/05/25 13:00 Medications Administered Medications: Discontinued Medications Generic Name Dose Route Start Last Admin Trade Name Freq PRN Reason Stop Dose Admin Diphenhydramine HCl 25 mg 02/05/25 13:38 02/05/25 13:57 Diphenhydramine 50 Mg/Ml Inj IVP 02/05/25 13:39 25 mg ONCE ONE Administration Hydrocortisone Sodium Succinate 200 mg 02/05/25 13:38 02/05/25 14:01 Hydrocortisone Sod Succinate 50 Mg/Ml Inj IVP 02/05/25 13:39 200 mg ONCE ONE Administration Sodium Chloride 1,000 mls @ 1,000 mls/hr 02/05/25 17:00 02/05/25 19:15 0.9 % Sodium Chloride 1000 Ml IV 02/05/25 17:59 Infused .Q1H BERONICA Infusion Meropenem 1 gm/ Sodium 100 mls @ 200 mls/hr 02/05/25 18:20 02/05/25 20:50 Chloride IVPB 02/05/25 18:21 Infused ONCE ONE Infusion Metronidazole 500 mg in 100 mls @ 100 mls/hr 02/05/25 18:21 02/05/25 20:19 Metronidazole IVPB 02/05/25 19:20 Infused ONCE ONE Infusion Medical Decision Making Lab Data Labs: Lab Results 02/05/25 02/05/25 Range/Units 13:38 16:19 WBC 14.21 H (4.50-11.00) K/uL RBC 4.06 L (4.30-5.90) m/uL Hgb 10.4 L (13.5-17.5) gm/dL Hct 34.6 L (37.0-53.0) % MCV 85 (80-100) fL MCH 26 (26-34) pg MCHC 30 L (32-36) gm/dL RDW Coeff of Rey 18.0 H (11.5-15.5) % Plt Count 234 (140-440) K/uL Neut % (Auto) 85.4 H (42.0-72.0) % Lymph % (Auto) 7.7 L (20-44) % Love % (Auto) 5.8 (0.0-11.0) % Eos % (Auto) 0.8 (0.0-7.0) % Baso % (Auto) 0.1 (0.0-3.0) % Neut # (Auto) 12.10 H (1.7-7.0) K/uL Lymph # (Auto) 1.10 (0.90-2.90) K/uL Love # (Auto) 0.80 (0.00-0.90) K/UL Eos # (Auto) 0.10 (0.00-0.50) K/uL Baso # (Auto) 0.00 (0.00-0.30) K/uL Abs Immat Gran (auto) 0.00 (0.00-0.30) K/uL Imm/Tot Granulo (auto) 0.2 % Sodium 137 (135-149) mmol/L Potassium 4.4 (3.6-5.1) mmol/L Chloride 99 (96-114) mmol/L Carbon Dioxide 30 (20-32) mmol/L Anion Gap 8 (7-15) mEq/L BUN 17 (7-30) mg/dL Creatinine 1.0 (0.5-1.5) mg/dL Estimated Creat Clear 70.06 Estimated GFR 78 ml/min Glucose 184 H (60-115) mg/dL Lactate 3.2 H 2.5 H (0.5-1.9) mmol/L Calcium 9.5 (8.4-10.6) mg/dL C-Reactive Protein 15.7 H (0.5-1.0) mg/dL Procalcitonin 0.19 (<0.50) ng/mL POC Troponin I 0.00 L (0.01-0.04) ng/ml Discharge Plan Discharge Clinical Impression: Osteomyelitis, Chest pain, Paraplegia Patient Disposition: Xfer [facility] Discharge Location: [facility] Prescriptions: No Action bacitracin 500 unit/gram ointment 1 applic topical BID sennosides-docusate sodium [Senna Plus] 8.6-50 mg tablet 2 tab-cap PO DAILY PRN Patient Comments: plus prn baclofen 10 mg tablet 10 mg PO BID Eliquis 5 mg tablet 5 mg PO BID atorvastatin 80 mg tablet 80 mg PO HS latanoprost 0.005 % drops 1 drp ophthalmic (eye) HS Rx Instructions: BOTH EYES Ear Wax Removal Kit 6.5 % drops 5 drp otic (ear) Q7D PRN Patient Comments: every Monday allopurinol 100 mg Tablet 100 mg PO DAILY Qty: 30 0RF clotrimazole 1 % cream 1 applic topical BID sennosides [senna] 8.6 mg tablet 17.2 mg PO DAILY PRN furosemide 40 mg tablet 40 mg PO DAILY metoprolol succinate 100 mg tablet extended release 24 hr 100 mg PO DAILY pantoprazole 40 mg tablet,delayed release (DR/EC) 40 mg PO BID calcium carbonate [Zachary-Gest Antacid] 200 mg calcium (500 mg) tablet,chewable 400 mg PO BID PRN polyethylene glycol 3350 17 gram/dose powder 17 g PO DAILY Patient Comments: plus prn lisinopril 40 mg tablet 40 mg PO DAILY cholecalciferol (vitamin D3) [Vitamin D3] 25 mcg (1,000 unit) tablet 25 mcg PO DAILY acetic acid 0.25 % solution See Rx Instructions .ROUTE BID Patient Comments: [NO ORIGINAL SIG] Rx Instructions: 1 APPLICATION twice a day AND PRN TO BUTTOCK WOUND oxycodone 5 mg tablet 5 mg PO Q6H PRN ferrous sulfate 325 mg (65 mg iron) Tablet 325 mg PO Q48H metformin 500 mg Tablet Extended Release 24 Hr 1,000 mg PO QPM ondansetron HCl 4 mg tablet 4 mg PO BID
[2025-02-05] MEDS: metroNIDAZOLE 500 MG/100 ML PIGGYBACK 100 MG IVPB (19:22)
[2025-02-05] MEDS: MEROPENEM 1 GM in 0.9 % SODIUM CHLORIDE Mini-bag 100 ML IVPB (20:20)
== END 2025-02-05 23:12 | disposition short-term general hospital (02) ==
PROVIDERS: Emergency Medicine; Emergency Provider Family Medicine; PCP Family Medicine
DX: M86.9 Osteomyelitis, unspecified (principal); L89.159 Pressure ulcer of sacral region, unspecified stage; R07.9 Chest pain, unspecified; G82.20 Paraplegia, unspecified; I05.0 Rheumatic mitral stenosis; K81.9 Cholecystitis, unspecified; Z87.891 Personal history of nicotine dependence
CPT/HCPCS: 36415; 71275; 72195; 80048; 83605; 84145; 84484; 85025; 86140; 87040; 93005; 94761; 96365; 96368; 96375; 99284; 99285; A0425; A0427; J1200; J1720; J1836; J2185; J7030; Q9967

== ENCOUNTER 2025-02-05 22:40 | Outpatient (CLI) | payer MEDICARE, SELFPAY | END 2025-02-05 22:41 | disposition home or self-care (01) | LOC: AMB 02-06 16:27 | PROVIDERS: PCP Family Medicine; Visit Provider Family Medicine | DX: M86.9 Osteomyelitis, unspecified (principal); R07.9 Chest pain, unspecified; G82.20 Paraplegia, unspecified; G35 Multiple sclerosis | CPT/HCPCS: A0425; A0427 ==

== ENCOUNTER 2025-02-12 12:41 | Outpatient (CLI) | payer MEDICARE, SELFPAY | END 2025-02-12 12:42 | disposition home or self-care (01) | LOC: WOUND 12:41 | PROVIDERS: PCP Family Medicine; Visit Provider Surgery | DX: L89.324 Pressure ulcer of left buttock, stage 4 (principal); M86.68 Other chronic osteomyelitis, other site; G82.20 Paraplegia, unspecified; G35 Multiple sclerosis; Z99.3 Dependence on wheelchair | CPT/HCPCS: 15271; 97605; Q4151 ==

== ENCOUNTER 2025-02-16 10:30 | Outpatient (CLI) | payer MEDICARE, SELFPAY | END 2025-02-16 20:00 | disposition home or self-care (01) | LOC: AMB 04-14 15:59 | PROVIDERS: PCP Family Medicine; Visit Provider Family Medicine | DX: R53.1 Weakness (principal) | CPT/HCPCS: A0425; A0427 ==

== ENCOUNTER 2025-02-16 10:56 | Emergency (ER) | payer MEDICARE, SELFPAY ==
--- OUTSIDE RECORDS SUMMARY | 2025-01-23 17:26 | XMS_ITS | Encounter Summary ---
Author Organization [facility] Address [address] [place] [address] Care Team Providers Care Aadc Plans Staff Officer Name Role Phone Jeff Reyes M.D. 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 [address] [place] [id number] Phone: tel: fax: [facility] Referral ID Status Reason Start Date Expiration Date V isits Requested Visits Authorized [id number] Authorized 01/23/2025 07/25/2026 1 1 Reason for Visit * Reason Comments Altered Mental Status Encounter Details Date Type Department Care Team (Late st Contact Info) Description 01/23/2025 5:26 PM CDT - 01/24/2025 12:38 AM CDT Emergency [facility] Emergency Department [address] [place] [phone] Ollie Walters M.D. [address] [place] [phone] Pain Generalized Abdominal (Primary Dx); 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) Discharge Disposition: Home or Self Care Social History Tobacco Use Types Packs/Day Years Used Date Smoking Tobacco: Former Cigarettes Q uit: 1977 Passive Smoke Exposure: Never Alcohol Use Standard Drinks/Week Comments Not Currently 1 (1 standard drink = 0.6 oz pur e alcohol) [facility] Utilities Answer Date Recorded In the past 12 months has e [employer], gas, oil, or water [employer] threatened to shut off services in your [...] by your partner or ex-partner? No 08/08/2024 Hunger Vital Sign Answer Date Recorded Within [...] needed for daily living? Patient declined 11/08/2024 Housing Stability Answer Date Recorded What is your living situation today? [facility] 11/08/2024 Education Answer Date Recorded What is the highest level of school you have completed or the highest degree you have received? 12th grade 10/18/2022 Sex and Gender Information Value Date Recorded Sex Assigned at Male 06/26/2018 4:20 PM SENIOR DENTIST Legal Sex Male 3:33 AM SENIOR DENTIST Gender Identity Not on file Sexual Orientation Not on file documented as of this encounter Last Filed Vital Signs Vital Sign Reading Time Taken Comments Blood Pressure 161/58 01/24/2025 12:00 AM CDT Pulse 87 01/24/2025 12:00 AM CDT Temperature 36.6 C (97.9 F) 01/23/2025 5:26 PM CDT Respiratory Rate 16 01/23/2025 5:26 PM CDT Oxygen Saturation 94% 01/24/2025 12:00 AM CDT Inhaled Oxygen Concentration - - Weight - - Height - - Body Mass Index - - documented in this encounter Discharge Instructions * Discharge Instructions* Chung Mehta M.D. - 01/23/2025 10:51 PM CDT Please return to the emergency room if your symptoms worsen including abdominal pain, nausea vomiting, fevers, chills, chest pain, shortness of breath. Please follow-up with your outpatient physicianJanes to coordinate further workup and management of your sacral wounds. * Attachments The following attachments cannot be sent through Care Everywhere. * Pressure Injury (Slovak) * Abdominal Pain Adult [id number] (Slovak) documented in this encounter Medications at Time of Discharge acetaminophen (TylenoL) 500 mg tablet Take 2 tablets (1,000 mg total) by mouth 3 (three) times a day. 08/16/2024 AntifungaL, clotrimazole, 1 % cream Apply 1 Application topically 2 (two) times a day. 05/14/[address] tablet Take 1 [...] constipation. 07/04/2018 documented as of this encounter Progress Notes * Mook Holland M.S.Charity., L.I.C.S.W. - 01/23/2025 11:58 PM CDT SUBJECTIVE Emergency Department Social Work is consulted by nursing to arrange return transportation to patient's facility - [facility]. Nursing reports patient is alert and oriented, on room air, and will need a wheelchair level of transportation. Nurse to nurse report has been completed. Patient is concerned about managing transportation to his anticipated upcoming appointments. Social Work meets with patient in his W12 ED room for supportive visit and to discuss disposition planning. Patient discusses that he does not wish to dismiss, and expressed concern that his illness is only going to get worse should he dismiss. Patient expresses frustration with [facility] for dismissinghim. Patient makes statements expresses some hopelessness with this situation such as if their notgoing to treat me now, they are not going to treat me then. Social work offers brief support for patient in the moment. Social inquires about transportation need, and patient identifies transportation need tonight, and for future appointments. He reports limited finances and cannot afford out of pocket expense of transportation for both instances. He reports family cannot assist with his transportation. Social work offers information for [facility] transportation resources and discusses senior linkage line, offering formal referral. Patient expresses doubt that the transportation resources offered would be able to support patient's transportation needs, but does accept the information provided. Patient declines referral to the Senior Linkage Line. Social work speak with patient's son - Homero Ramirez, phone: [phone] - regarding patient situation and transportation needs. Homero further expresses similar concern for patient's safety, and is questioning the reason for dismissal decision. He expresses concern that patient's condition could worsen if dismissing and he worries that this could have significant negative impact on patient's quality of life. He expresses curiosity about the ethics of decision to dismiss patient. Social offers brief focused support to acknowledge his concerns. Social work agrees to bring these concerns to the medical team working with patient. Social work inquires if Homero would like further conversation with the ED surgical product sales consultant to discuss the medical decision to dismiss the patient, which he declines. Social work offers additional supportive options, and Homero accepts the [facility] reporting line, and the Office of patient Experience. Homero does report that his siblings can typically assist with transportation to appointments. His brother and sister, do have a wheelchair accessible vehicle, and notes thatfamily would need to be updated of when the upcoming appointments would be. Social work reaches outto the medical team who report patient's care providers will reach out to patient on Monday01/27/25 to schedule his recommended appointments. Social work updated ED care to of patient and family's concerns. The ED surgical product sales consultant reviews with ED social work that the outpatient path identified with future appointments is the path needed based onthe system to schedule the appropriate testing to confirm if the infection has progressed to patient's bone. They acknowledge patient and family's frustration with this, but identify that this is theappropriate plan for patient. OBJECTIVE Emergency Department Social work was consulted to assist with transportation back to his facility in [facility]. Social work arranged transportation with [employer], phone: [phone]. ASSESSMENT / PLAN ASSESSMENT Transport resources were explored and arranged to assist with the patient's needs. The patient appears to have insight into their needs at this time. PLAN 1. [employer], phone: [phone] to provide return transportation to [facility] in [facility]. 2. Please contact social work if further supportive or dismissal needs arise. The patient is being prepared to discharge on 01/24/25 at 00:35 if medically ready for transfer. Contact Social Work if time needs to be changed. Transportation will be provided by [employer], [employer] ([phone] ). Transportation will be paid for by Other. Darius Tate, Moe 01/23/2025 documented in this encounter Consult Notes * Bebeto Casper M.D. - 01/23/2025 10:21 PM CDT ---------Miscellaneous [facility] ED consult Service Note-------- Mr. Ren Ramirez a chart review was completed. The patient was not seen or evaluated by the [facility] ED Consult Team. Chart review and discussion with Emergency Department provider Ollie Walters M.D.. [facility]ol[facility]helly was asked to arrange close PCP follow up. Will ask our DOS for help on Monday. -----All results and laboratory testing will be followed by the emergency department team. Please ensure results are forwarded to them. We appreciate the collaborative care with the [facility] ED in the management of Mr. Ren Ramirez. If any questions or concerns, feel free to page [phone] [facility] ED Consult Team between the hours of 7a-4p. Addendum: The SNF physician will follow up with the patient as per our conversation with SNF providers. documented in this encounter ED Notes * Ollie Walters M.D. - 01/24/2025 12:38 AM CDT I have personally seen and examined this patient. I have fully participated in the care of this patient. I have reviewed all clinical information including history, physical exam, orders, and plan. Iagree with the note of the resident. Assessment and Plan #abdominal pain over the past several weeks. Probably related to the cholecystostomy tube. #cholecystostomy tube - Abdominal CT w/ contrast shows slightly improved but unresolved inflammation associated with cholecystostomy tube when compared to previous CT. CT also reveals possible chronic cystitis. - History is occlusion of the cystic duct asked expedited barely cholecystostomy tube replacement in October makes cystic duct occlusion reasonable candidate for causing current symptomsf - Abdominal pain is possibly related to cholecystostomy tube dysfunction especially given expeditedtube exchange back in October due to catheter retraction - Gallbladder perforation with peritonitis unlikely given the patient's clinical stabilityh and lack of peritonitic symptoms on physical exam - Abscess, infection, ascending cholangitis are also unlikely given the patient's absence of jaundice and inflammatory symptoms such as fever. #Chronic sacral wounds - Patient has chronic sacral wounds require management, nothing urgent to be done can follow outpatient. - discussed with [facility] who are working on getting the patient an appointment for early next week - social work working on providing resources for transportation to appointments given the patient'slimited mobility and status at assisted living facility. CT: 1. Similar positioning of the cholecystostomy tube in a decompressed gallbladder. Slightly improvedbut unresolved associated inflammation. 2. 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 Recommend further evaluation with MRI. 3. Possible chronic cystitis. He is discharged after receiving intravenous Benadryl as well as intravenous dexamethasone for whatis probably an allergic reaction to the radio contrast media. He reported feeling better at the time of discharge. The contrast media rash was localized to his upper extremities. No history of swelling of the mouth or tongue or throat. No difficulty breathing. This patient is very complex. His abdominal pain is probably related to the persistent cholecystostomy tube. It is difficult to know whether he truly has osteomyelitis and if he does have osteomyelitis, is it chronic or acute. He is not toxic on today's examination. He will be discharged home with instructions to follow-up with his primary care physician. We appreciate the help of the [facility] team in arranging a primary care visit early next week. He should plan to follow up next week with primary care. If he develops any changes in his condition he should return to the emergency department for re-evaluation.. 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 01/25/25 182 Ollie Walters M.D. 01/25/25 182 * Chung Mehta M.D. - 01/23/2025 5:49 PM CDT SUBJECTIVE CHIEF COMPLAINT/REASON FOR VISIT Altered Mental Status HISTORY OF PRESENT ILLNESS Patient presents to the ED via EMS from [address] [place] [address] [facility] for abdominal pain. Has history of multiple sclerosis with paraparesis, neurogenic bladder, acute bilateral pulmonary embolisms in October of 2024 following acute cholecystitis status post cholecystostomy tube for which he was treated with heparin transitioning to apixaban. He states that since the cholecystostomy tube placement he has had off and on abdominal pain and nausea for several weeks. He states that the volume fromthe cholecystostomy tube has decreased slightly but has had constant output since it was placed. He states that with his neurogenic bowel due to MS he has about 1 bowel movement daily to every other day and this has remained constant despite the abdominal pain. He also endorses chills over the past couple of weeks is unsure if he has had fevers. Cholecystostomy tube was placed August 09, [address] Anuel Nunn. Had routine IR percutaneous cholecystostomy tube exchange October 01, 2024. He required expedited exchange of the cholecystostomy tube due to catheter retraction on October 24, at which time he had frankly purulent bile within the gallbladder and an occluded cystic duct. REVIEW OF SYSTEMS See HPI OBJECTIVE Initial Vitals Temperature 01/23/25 1726 36.6 ??C Pulse Rate 01/23/25 1726 78 Heart Rate -- Resp Rate 01/23/25 1726 16 Blood Pressure 01/23/25 1726 137/68 SpO2 01/23/25 1726 96 % Pain Score 01/23/[address] Abdomen Pelvis W/ Contrast 01/23/25 IMPRESSION: 1. Similar positioning of the cholecystostomy tube in a decompressed gallbladder. Slightly improvedbut unresolved associated inflammation. 2. 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 Recommend further evaluation with MRI. 3. Possible chronic cystitis. PHYSICAL EXAMINATION Patient is lying in bed he is alert and oriented to self and place but not date or day of the week.He is conversational and does not appear confused with good recall of events from recent hospitalizations. Patient's abdomen is moderately distended without fluid wave. He has diffuse tenderness to palpation worse in the periumbilical region and right upper and right lower quadrants. Cholecystostomy drainwas examined found to have 10-15 mL of reddish orange fluid. Diffuse neurologic deficits secondary to MS. Patient reports he is at his neurological baseline with 3/5 strength RUE, 4/5 strength LUE, 2/5 strength RLE, 1-2/5 strength LLE. Cardiovascular and pulmonary exams were limited by patient positioning though they were unremarkable. ASSESSMENT/PLAN #abdominal pain #cholecystostomy tube - Abdominal CT w/ contrast shows slightly improved but unresolved inflammation associated with cholecystostomy tube when compared to previous CT. CT also reveals possible chronic cystitis. - History is occlusion of the cystic duct asked expedited barely cholecystostomy tube replacement in October makes cystic duct occlusion reasonable candidate for causing current symptomsf - Abdominal pain is possibly related to cholecystostomy tube dysfunction especially given expeditedtube exchange back in October due to catheter retraction - Gallbladder perforation with peritonitis unlikely given the patient's clinical stabilityh and lack of peritonitic symptoms on physical exam - Abscess, infection, ascending cholangitis are also unlikely given the patient's absence of jaundice and inflammatory symptoms such as fever. #Chronic sacral wounds - Patient has chronic sacral wounds require management, nothing urgent to be done can follow outpatient. - discussed with [facility] who are working on getting the patient an appointment for early next week - social work working on providing resources for transportation to appointments given the patient'slimited mobility and status at assisted living facility. ED Course as of 01/24/25 0013 [facility] Jan 23, 20251826 CBC without Differential 1826 Basic Metabolic Panel 1826 Lipase 1826 Lactate, B 1826 CT Abdomen Pelvis with IV Contrast 1926 CBC without Differential(!): Hemoglobin 10.6(!) Hematocrit 34.9(!) Erythrocytes 4.12(!) MCV 84.7 RBC Distrib Width 18.2(!) Platelet Count 229 Leukocytes 9.1 1926 Basic Metabolic Panel(!): Potassium, P 4.6 Sodium, P 136 Chloride, P 101 Bicarbonate, P 23 Anion Gap, P 12 BUN (Blood Urea Nitrogen), P 31(!) Creatinine 1.34 Estimated GFR (eGFR) 55(!) Calcium, Total, P 8.8 Glucose, P 122 1927 Lactate, B: Lactate 1.2 1951 Lipase: Lipase, S 16 2005 Estimated GFR (eGFR)(!): 55 2016 Bacteria / Zenobia Culture, Blood #2 2016 Bacteria / Zenobia Culture, Blood #1 2016 Urinalysis, with Microscopic: Urine, Catheter 2027 CRP (C-Reactive Protein) 2027 Sedimentation Rate 2211 Discussed the patient's case with [facility]. They state that they are unable to assist with getting urgent outpatient follow-up with specialty clinics and that he would have to go through his PCP. He also has issues with transportation and support at home for wound care that would be limiting factors. 2219 Spoke with [facility]hel[facility], plan is to get patient in for post ED PCP follow-up early next week for coordination of wound care management. 2247 When discussing discharge with the patient, he expressed concern that he will not be able to make it to his outpatient appointments and that his pain condition will go untreated. I Discussed thepatient's case with social work who are working to get resources for rides to the patient to get him comfortable enough to discharge home. 2349 Social work conversation with patient and son. Patient's son discloses concerns about discharge from the hospital given ongoing concern for infection of the patient's sacral wounds. Explained tothe patient that his presentation does not warrant acute interventions and that definitive management will need to take place outpatient. Patient's son expresses frustration but is understanding and states that he will be able to help facilitate transportation for the patient's appointments Fri Jan 24, 2025 0012 Patient developed a lower extremity rash presumably a reaction to contrast dye from abdominal CT with contrast. 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 12:13 AM CDT Chung Mehta M.D. Resident 01/23/25 6393 Chung Mehta M.D. Resident 01/24/25 001 * Dena Arshad R.N. - 01/23/2025 5:44 PM CDT Pt presents to the ED via EMS for altered mental status. On arrival to room pt is speaking in full sentences and A/O x3. EMS states on their arrival pt was A/O x3 as well. When asking pt why his carefacility brought him here for altered mental status he states, At the beginning I didn't have the ability to pick and chose whatever the questions were they asked. Pt has two wound vacs and a catheter on arrival with a history of MS. Dena Arshad R.N. 01/23/25 1747 documented in this encounter Plan of Treatment Upcoming Encounters Date Type Department Care Team (Late st Contact Info) Description 02/21/2025 11:00 AM CDT Virtual Visit Department of Oncology in [place], [place] [address] [place] [address] Pablo Vo M.D. [address] [place] [address] 03/04/2025 9:00 AM CDT Appointment Department of Radiology in [place], [place] [address] [place] [address] Pablo Vo M.D. 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) Expected: 01/23/2025, Expires: 04/25/2026 documented as of this encounter Procedures Procedure Name Priority Date/Time Associated Diagnosis Comments DIPSTICK, U STAT 01/23/2025 8:37 PM CDT MICROSCOPIC AUTOMATED STAT 01/23/2025 8:37 PM CDT PH, U STAT 01/23/2025 8:37 PM CDT OSMOLALITY, U STAT 01/23/2025 8:37 PM CDT URINALYSIS WITH MICROSCOPIC STAT 01/23/2025 8:37 PM CDT SEDIMENTATION RATE, B STAT 01/23/2025 8:36 PM CDT C-REACTIVE PROTEIN (CRP), S/P STAT 01/23/2025 8:36 PM CDT BACTERIA / ZENOBIA CULTURE, BLOOD STAT 01/23/2025 8:34 PM CDT LACTATE FOR SEPSIS WITH REFLEX STAT 01/23/2025 8:32 PM CDT BACTERIA / ZENOBIA CULTURE, BLOOD STAT 01/23/2025 8:[address] ABDOMEN PELVIS WITH IV CONTRAST RAD - Semiurgent (Fast; most ED patients; some inpatients) 01/23/2025 7:35 PM CDT LACTATE, B STAT 01/23/2025 6:55 PM CDT CBC WITHOUT DIFFERENTIAL, B STAT 01/23/2025 6:55 PM CDT LIPASE, S/P STAT 01/23/2025 6:55 PM CDT BASIC METABOLIC PANEL, S/P STAT 01/23/2025 6:55 PM CDT ECG STAT 01/23/2025 5:18 PM CDT documented in this encounter Results * (ABNORMAL) Dipstick, Urine (01/23/2025 8:37 PM CDT) Hemoglobin, QL, U Negative Negative 01/23/2025 8:57 PM CDT DTL Leukocyte Esterase, U Trace(A) Negative 01/23/2025 8:57 PM CDT DTL Nitrite, U Negative Negative 01/23/2025 8:57 PM CDT DTL Ketone, U Negative Negative mg/dL 01/23/2025 8:57 PM CDT DTL Glucose, U Negative Negative mg/dL 01/23/2025 8:57 PM CDT DTL Urine 01/23/2025 8:37 PM CDT 01/23/2025 8:49 PM CDT us Chung Mehta M.D. LAB URINE ORDERABLES Fin al Result Performing Organization Address City/[facility]/ZIP Co de Phone Number [facility] [address] [place] [address] * pH, Urine (01/23/2025 8:37 PM CDT) Pathologist [facility] pH, U 5.4 4.5 - 8.0 01/23/2025 9:0 3 PM CDT DTL Urine 01/23/2025 8:37 PM CDT 01/23/2025 8:49 PM CDT us Chung Mehta M.D. LAB URINE ORDERABLES Fin al Result [facility] [address] [place] [address] * Osmolality, Urine (01/23/2025 8:37 PM CDT) Pathologist [facility] Osmolality, U 409 150 - 1150 mOsm/kg 01/23/2025 9:03 PM CDT DTL Urine 01/23/2025 8:37 PM CDT 01/23/2025 8:49 PM CDT Chung Mehta M.D. LAB URINE ORDERABLES Fin al Result Performing Organization Address [facility] Co de Phone Number [address] [place] [address] * Microscopic Automated (01/23/2025 8:37 PM CDT) Microscopy Normal 01/23/2025 8:57 PM CDT DTL RBC <3 <3 /hpf 01/23/2025 8:57 PM CDT DTL WBC 1-3 /hpf 01/23/2025 8:57 PM CDT DTL Comment: ----REFERENCE VALUE---- <4 (Males) <11 (Females) Casts, Hyaline 11-20 /lpf 01/23/2025 8:57 PM CDT DTL Urine 01/23/2025 8:37 PM CDT 01/23/2025 8:49 PM CDT Chung Mehta M.D. LAB URINE ORDERABLES Fin al Result Performing Organization Address [facility] [place] [address], [facility] [place] [address] * Urinalysis, with Microscopic: Urine, Catheter (01/23/2025 8:37 PM CDT) Source Urine, Urine, Catheter 01/23/2025 8:49 PM CDT DTL Color, U Yellow 01/23/2025 8:49 PM CDT DTL Clarity, U Clear 01/23/2025 8:49 PM CDT DTL Protein, U 9 <26 mg/dL 01/23/2025 9:26 PM CDT DTL Protein/Osmola lity 0.22 <0.42 ratio 01/23/2025 9:26 PM CDT DTL Predicted 24 HR Protein, U 222 <229 mg/24 h 01/23/2025 9:26 PM CDT DTL Predicted Range 71-701 mg/24 h 01/23/2025 9:26 PM CDT DTL Urine (Urine, Catheter) 01/23/2025 8:37 PM CDT 01/23/2025 8:49 PM CDT Chung Mehta M.D. LAB URINE ORDERABLES Fin al Result Performing Organization Address City/[facility]/ZIP Co de Phone Number [facility] [address] [place] [address] * (ABNORMAL) Sedimentation Rate (01/23/2025 8:36 PM CDT) Sedimentation Rate, B 109(H) 3 - 28 mm/h 01/23/2025 9:29 PM CDT DTL Blood (Blood, Venous) 01/23/2025 8:36 PM CDT 01/23/2025 8:47 PM CDT Chung Mehta M.D. LAB BLOOD ADD-ON Final R esult Performing Organization Address City/[facility] Co de Phone Number [facility] [address] [place] [address] * (ABNORMAL) CRP (C-Reactive Protein) (01/23/2025 8:36 PM CDT) C-Reactive Protein (CRP), S 124.8(H) <5.0 mg/L 01/23/2025 9:28 PM CDT DTL Blood (Blood, Venous) 01/23/2025 8:36 PM CDT 01/23/2025 9:01 PM CDT Chung Mehta M.D. LAB BLOOD ADD-ON Final R esult Performing Organization Address City/[facility]/ZIP Co de Phone Number [facility] [address] [place], [place] [address] 200 [place] [address] * Bacteria / Zenobia Culture, Blood #2 (01/23/2025 8:34 PM CDT) Bacteria/Vannessa da Culture, Blood No growth after 5 days of incubation. 01/28/2025 9:02 PM CDT DTL Blood (Blood, Peripheral Draw) 01/23/2025 8:34 PM CDT 01/23/2025 8:50 PM CDT Comment:Specimen Source Site : Blood Chung Mehta M.D. LAB MICROBIOLOGY - GENER AL ORDERABLES Final Result [facility] [address] [place], [place] [id number] [place] [address] 200 [place] [address] * Lactate for Sepsis with Reflex (01/23/2025 8:32 PM CDT) Lactate, P 1.3 0.5 - 2.2 mmol/L 01/23/2025 8:59 PM CDT STMA Blood (Blood, Venous) 01/23/2025 8:32 PM CDT 01/23/2025 8:44 PM CDT Chung Mehta M.D. LAB BLOOD NON ADD-ON Fin al Result [facility] [address] [place] [address], [facility] STMA [facility] 200 [place] [address] * Bacteria / Zenobia Culture, Blood #1 (01/23/2025 8:32 PM CDT) Bacteria/Vannessa da Culture, Blood No growth after 5 days of incubation. 01/28/2025 9:02 PM CDT DTL Blood (Blood, Peripheral Draw) 01/23/2025 8:32 PM CDT 01/23/2025 8:49 PM CDT Comment:Specimen Source Site : Blood us Chung Mehta M.D. LAB MICROBIOLOGY - GENER AL ORDERABLES Final Result [facility] [address] [place] [address], [facility] DTL [facility] [address] [place] [address] * CT Abdomen Pelvis with IV Contrast (01/23/2025 7:35 PM CDT) Anatomical Region Laterality Modality Abdomen, Pelvis, Abdominal R ST LOS, Abdominal ARZ LOS, Abdominal FLA LOS N/A Computed Tomograp hy, Computed Tomography 01/23/2025 7:29 PM CDT Impressions 01/23/2025 7:59 PM CDT 1. Similar positioning of the cholecystostomy tube in a decompressed gallbladder. Slightly improved but unresolved associated inflammation. 2. 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 Recommend further evaluation with MRI. 3. Possible chronic cystitis. Narrative 01/23/2025 7:59 PM CDT EXAM: CT ABDOMEN PELVIS WITH IV CONTRAST COMPARISON: CT 09/15/2024 FINDINGS: Since 09/15/2024, continued near complete decompression of the gallbladder. Stable positioning percutaneous cholecystostomy tube. Trace pericholecystic fluid, however slightly increased common bile duct wall thickening and enhancement near the cystic duct confluence (series 3 images 41-43). Similar multiple hepatic hypoattenuating lesions, largest near hepatic dome containing internal calcifications. Similar 1.5 cm right adrenal nodule. Renal cysts, similar. Heterogenous prostate. Slightly decreased urinary bladder wall thickening. Eason catheter. Normal caliber large and small bowel. Scattered colonic diverticula. Negative appendix. Similar lymph node prominence predominantly in the retroperitoneum, likely reactive. No ascites. Multilevel spondylotic changes, marked about L5-S1. Right femoral neck screw fixation. Packed left presumed decubitus ulcer with the cavity extending to the ischium and associated sclerosis. Procedure Note Fransisco Callaway M.D., M.S. - 01/23/2025 EXAM: CT ABDOMEN PELVIS WITH IV CONTRAST COMPARISON: CT 09/15/2024 FINDINGS: Since 09/15/2024, continued near complete decompression of thegallbladder. Stable positioning percutaneous cholecystostomy tube. Tracepericholecystic fluid, however slightly increased common bile duct wallthickening and enhancement near the cystic duct confluence (series 3 images 41-43). Similar multiple hepatic hypoattenuating lesions, largest near hepaticdome containing internal calcifications. Similar 1.5 cm right adrenalnodule. Renal cysts, similar. Heterogenous prostate. Slightly decreasedurinary bladder wall thickening. Eason catheter. Normal caliber large and small bowel. Scattered colonic diverticula.Negative appendix. Similar lymph node prominence predominantly in the retroperitoneum, likelyreactive. No ascites. Multilevel spondylotic changes, marked about L5-S1.Right femoral neck screw fixation. Packed left presumed decubitus ulcer with the cavity extending to theischium and associated sclerosis. IMPRESSION: 1. Similar positioning of the cholecystostomy tube in a decompressedgallbladder. Slightly improved but unresolved associated inflammation. 2. Presumed left decubitus ulcer with findings concerning forosteomyelitis of the ischium. Recommend further evaluation with MRI. 3. Possible chronic cystitis. us Ollie Walters M.D. IMG CT PROCEDURES Final Result * Lactate, B (01/23/2025 6:55 PM CDT) Lactate, B 1.2 0.5 - 2.2 mmol/L 01/23/2025 7:05 PM CDT [facility] Blood (Blood, Venous) 01/23/2025 6:55 PM CDT 01/23/2025 7:02 PM CDT us Ollie Walters M.D. LAB BLOOD NON ADD-ON Final Res ult [facility] [address] [place] [address], [place] [facility] [address] [place] [address] * Lipase (01/23/2025 6:55 PM CDT) Lipase, S 16 13 - 60 U/L 01/23/2025 7: 42 PM CDT DTL Blood (Blood, Venous) 01/23/2025 6:55 PM CDT 01/23/2025 7:25 PM CDT Ollie Walters M.D. LAB BLOOD ADD-ON Final Result [facility] [address] [place] [address], [facility] [address] [place] [address] * (ABNORMAL) Basic Metabolic Panel (01/23/2025 6:55 PM CDT) Potassium, P 4.6 3.6 - 5.2 mmol/L 01/23/2025 7:19 PM CDT STMA Sodium, P 136 135 - 145 mmol/L 01/23/2025 7:19 PM CDT STMA Chloride, P 101 98 - 107 mmol/L 01/23/2025 7:19 PM CDT STMA Bicarbonate, P 23 22 - 29 mmol/L 01/23/2025 7:19 PM CDT STMA Anion Gap, P 12 7 - 15 01/23/2025 7:19 PM CDT STMA BUN (Blood Urea Nitrogen), P 31(H) 8 - 24 mg/dL 01/23/2025 7:19 PM CDT STMA Creatinine 1.34 0.74 - 1.35 mg/dL 01/23/2025 7:19 PM CDT STMA Estimated GFR (eGFR) 55(L) >=60 mL/min/BSA 01/23/2025 7:19 PM CDT STMA Comment: Estimated GFR calculated using the 2020 CKD_EPI creatinine equation. Calcium, Total, P 8.8 8.8 - 10.2 mg/dL 01/23/2025 7:19 PM CDT STMA Glucose, P 122 70 - 140 mg/dL 01/23/2025 7:19 PM CDT STMA Blood (Blood, Venous) 01/23/2025 6:55 PM CDT 01/23/2025 7:02 PM CDT us Ollie Walters M.D. LAB BLOOD ADD-ON Final Result Performing Organization Address City/[facility]/ZIP Co de Phone Number [facility] [address] [place] [address], [facility] [address] [place] [address] * (ABNORMAL) CBC without Differential (01/23/2025 6:55 PM CDT) Hemoglobin 10.6(L) 13.2 - 16.6 g/dL 01/23/2025 7:06 PM CDT STMA Hematocrit 34.9(L) 38.3 - 48.6 % 01/23/2025 7:06 PM CDT STMA Erythrocytes 4.12(L) 4.35 - 5.65 x10(12)/L 01/23/2025 7:06 PM CDT STMA MCV 84.7 78.2 - 97.9 fL 01/23/2025 7:06 PM CDT STMA RBC Distrib Width 18.2(H) 11.8 - 14.5 % 01/23/2025 7:06 PM CDT STMA Platelet Count 229 135 - 317 x10(9)/L 01/23/2025 7:06 PM CDT STMA Leukocytes 9.1 3.4 - 9.6 x10(9)/L 01/23/2025 7:06 PM CDT STMA Blood (Blood, Venous) 01/23/2025 6:55 PM CDT 01/23/2025 7:02 PM CDT us Ollie Walters M.D. LAB BLOOD ADD-ON Final Result [facility] [address] [place] [address], [facility] [address] [place] [address] * ECG 12 Lead (01/23/2025 5:18 PM CDT) Ventricular Rate ECG/Min 79 BPM MUSE VA Interval 210 ms MUSE QRSD Interval 96 ms MUSE QT Interval 370 ms MUSE QTC Interval 424 ms MUSE P [place] 42 degrees MUSE R [place] -12 degrees MUSE T Wave [place] 47 degrees MUSE 01/23/2025 5:18 PM CDT 01/23/2025 5:21 PM CDT Impressions MUSE - 01/23/2025 5:21 PM CDT Sinus rhythm with 1st degree A-V block Otherwise normal ECG When compared with ECG of 05-Nov-2024 07:43, No significant change was found Reviewed by VALE Cohen Narrative Procedure Note Emil Andujar M.D. - 01/23/2025 IMPRESSION: Sinus rhythm with 1st degree A-V block Otherwise normal ECG When compared with ECG of 05-Nov-2024 07:43, No significant change was found Reviewed by VALE Cohen Ollie Walters M.D. 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) documented in this encounter Administered Medications Inactive Administered Medications - up to 3 most recent administrations Medication Order MAR Action Action Date Dose Rate Site dexAMETHasone injection 10 mg (Decadron) 10 mg, intravenous, Once, On Mon01/24/25 at 0003, For 1 dose Given 01/24/2025 12:08 AM CDT 10 mg diphenhydrAMINE injection 25 mg (BenadryL) 25 mg, intravenous, Once, On Mon01/24/25 at 0002, For 1 dose Given 01/24/2025 12:08 AM CDT 25 mg iohexoL 300 mg iodine/mL solution 1-200 mL (Omnipaque) 1-200 mL, intravenous, Once in imaging, contrast, Starting on Jayla 01/23/25 at 1920, For 1 dose, Imaging Protocol Orders, Dose per Radiant Medication Guidelines Given 01/23/2025 7:26 PM CDT 200 mL sodium chloride (PF) 0.9 % injection 1-100 mL 1-100 mL, intravenous, Once, On Jayla 01/23/25 at 1921, For 1 dose, Imaging Protocol Orders, Dose per Radiant Medication Guidelines Given 01/23/2025 7:32 PM CDT 50 mL documented in this encounter Active and Recently Administered Medications Times are shown in CDT. Scheduled Medication Order 01/22/2025 01/23/2025 01/24/2025 dexAMETHasone injection 10 mg (Decadron) (COMPLETED) 10 mg, intravenous, Once, On Mon01/24/25 at 0003, For 1 dose 0008 (Given - Provid er: Anitra Singh R.N.) diphenhydrAMINE injection 25 mg (BenadryL) (COMPLETED) 25 mg, intravenous, Once, On Mon01/24/25 at 0002, For 1 dose 0008 (Given - Provid er: Anitra Singh R.N.) sodium chloride (PF) 0.9 % injection 1-100 mL (COMPLETED) 1-100 mL, intravenous, Once, On Jayla 01/23/25 at 1921, For 1 dose, Imaging Protocol Orders, Dose per Radiant Medication Guidelines 1932 (Given - Provider: Ilene Griffin R.N.) PRN Medication Order 01/22/2025 01/23/2025 01/24/2025 iohexoL 300 mg iodine/mL solution 1-200 mL (Omnipaque) (COMPLETED) 1-200 mL, intravenous, Once in imaging, contrast, Starting on Jayla 01/23/25 at 1920, For 1 dose, Imaging Protocol Orders, Dose per Radiant Medication Guidelines 192 (Given - Provider: Russ Griffin RFiliberto) documented in this encounter Additional Health Concerns Assessment Noted Time PHQ-9 Depression Total Score: 10 018 11:00 AM CDT documented as of this encounter Care Teams Aadc Plans Staff Officer Relationship Specialty Start Date End Date Jeff Reyes M.D. [address] [place] [phone] PCP - General 03/14/24 documented as of this encounter
--- OUTSIDE RECORDS SUMMARY | 2025-02-04 12:11 | XMS_ITS | Encounter Summary ---
Author Organization [facility] Address [address] [place] [address] Care Team Providers Care Compliance Representative Dealer Name Role Phone Jeff Reyes M.D. Primary Care Provider Reason for Referral * Outpatient (Routine) - Authorized Specialty Diagnoses / Procedures Referred By Contac t Referred To Contact Radiology Diagnoses Cholecystitis Procedures IR Percutaneous Cholecystostomy Tube Exchange Anuel Nunn M.D. [facility] [place] [address] Phone: tel: fax: [facility] Referral ID Status Reason Start Date Expiration Date V isits Requested Visits Authorized [id number] Authorized 02/05/2025 05/08/2026 1 1 * Outpatient (Routine) - Authorized Specialty Diagnoses / Procedures Referred By Contelly t Referred To Contact General Surgery Diagnoses Cholecystitis Anuel Nunn M.D. [address] [place] [address] Phone: tel: fax: [facility] Referral ID Status Reason Start Date Expiration Date Visits Requested Visits Authorized [id number] Authorized Specialty Services Required 02/04/2025 08/06/2026 1 1 * Outpatient (Routine) - Closed Specialty Diagnoses / Procedures Referred By Jono donohue Referred To Contact Radiology Diagnoses Cholecystitis Procedures IR Percutaneous Cholecystostomy Tube Exchange Anuel Nunn M.D. [address] [place] [phone] Phone: tel: fax: [facility] Region Referral ID Status Reason Start Date Expiration Date Visits Re quested Visits Authorized [id number] Closed 10/24/2024 01/24/2026 1 1 Reason for Visit * Outpatient (Routine) - Closed Specialty Diagnoses / Procedures Referred By Jono donohue Referred To Contact Radiology Diagnoses Cholecystitis Procedures IR Percutaneous Cholecystostomy Tube Exchange Anuel Nunn M.D. [address] [place] [phone] Phone: tel: fax: [facility] Referral ID Status Reason Start Date Expiration Date Visits Re quested Visits Authorized [id number] Closed 10/24/2024 01/24/2026 1 1 Encounter Details Date Type Department Care Team (Latest Contact Info) Description 02/04/2025 12:11 PM CDT - 02/04/2025 1:42 PM CDT Hospital Encounter Department of Radiology in [address] [address] Anuel Nunn M.D. [address] [place] [phone] Cholecystitis Discharge Disposition: Home or Self Care Social History Tobacco Use Types Packs/Day Years Used Date Smoking Tobacco: Former Cigarettes Q uit: 1977 Passive Smoke Exposure: Never Alcohol Use Standard Drinks/Week Comments Not Currently 1 (1 standard drink = 0.6 oz pur e alcohol) [facility] Utilities Answer Date Recorded In the past 12 months has [employer], gas, oil, or water [employer] threatened to shut off services in your [...] your living situation today? I have a [facility] place to live 11/08/2024 Education Answer Date Recorded What is the highest level of school you have completed or the highest degree you have received? 12th grade 10/18/2022 Sex and Gender Information Value Date Recorded Sex Assigned at Male 06/26/2018 4:20 PM FIRE FIGHTING EQUIPMENT SPECIALIST Legal Sex Male 3:33 AM FIRE FIGHTING EQUIPMENT SPECIALIST Gender Identity Not on file Sexual [...] Same. PROCEDURE DETAILS / FINDINGS Routine 14 Sammarinese 25 cm cholecystostomy tube exchange. Please see Radiology Report for full details. ROTARY OPERATOR Ollie Nunn M.D. SPECIMENS REMOVED None. ESTIMATED [...] CDT Virtual Visit Department of Oncology in [place], [place] [address] [place] [address] Pablo Vo M.D. [address] [place] [address] 03/04/2025 9:00 AM CDT Appointment Department of Radiology in [place], [place] [address] [place] [address] Pablo Vo M.D. [address] [place] [phone] Scheduled Orders Name Type Priority Associated Diagnoses [...] male with history of cholecystitis requiring 14 Sammarinese cholecystostomy catheter, routine 3 month exchange COMPARISON: [...] Patient education provided by a care steam setter. Patient was ready to learn with no apparent learning barriers were identified. Post-procedure care explained; patient expressed understanding of the content. PROCEDURE DETAILS: Sedation: None. Sedation time: Not applicable. Estimated Blood Loss: Less than 10 mL. TECHNIQUE: Imaging guidance for catheter exchange: Fluoroscopy with permanent image storage Access side: Right lateral abdomen intercostal transhepatic Catheter: 14 Sammarinese 25 cm multipurpose pigtail drain Technique: The indwelling catheter was injected with contrast. A guidewire was inserted through the catheter, and the catheter was exchanged for a new 14 Sammarinese catheter. Contrast was injected confirming the location [...] Patient education provided by a care steam setter. Patient was ready to learn withno apparent learning barriers were identified. Post-procedure careexplained; patient expressed understanding of the content. PROCEDURE DETAILS: Sedation: None. Sedation time: Not applicable. Estimated Blood Loss: Less than 10 mL. TECHNIQUE: Imaging guidance for catheter exchange: Fluoroscopy with permanent imagestorage Access side: Right lateral abdomen intercostal transhepatic Catheter: 14 Sammarinese 25 cm multipurpose pigtail drain Technique: The indwelling catheter was injected with contrast. A guidewirewas inserted through the catheter, and the catheter was exchanged for anew 14 Sammarinese catheter. Contrast was injected confirming the location [...] documented as of this encounter Care Teams Compliance Representative Dealer Relationship Specialty Start Date End Date Jeff Reyes M.D. [address] [place] [phone] PCP - General 03/14/24 documented as of this encounter
[2025-02-16] VITALS (12 sets, daily range): BP systolic 115–132; BP diastolic 48–58; PULSE 74–99; RESP 3–16; TEMP 36.2; O2SAT 71–97; BMI 35.5
--- OUTSIDE RECORDS SUMMARY | 2025-02-16 10:58 | XMS_ITS | Clinical Summary ---
Author Organization [employer] [facility] Address [address] [place] [id number] Care Team Providers Care Laser Operator Name Role Phone Birdie Taveras RN Unavailable [phone] Karrie Singer RN Unavailable [phone] Clinic, No Pcp Or Primary Care Provider Unavaila ble Allergies Active Allergy Reactions Criticality Noted Date Comments Vancomycin vancomycin infusion reaction (cutaneous flushing/non-allergic reaction) Medium 05/26/2018 Red Man Syndrome Medications acetaminophen (TYLENOL EXTRA STRGTH) 500 mg tablet Take 1,000 mg by mouth three times daily. Max acetaminophen dose: 4000mg in 24 hrs. Active allopurinoL (ZYLOPRIM) 100 mg tablet Take 100 mg by mouth once daily. Active apixaban (ELIQUIS) 5 mg tablet Take 5 mg by mouth two times daily. Active atorvastatin (LIPITOR) 80 mg tablet Take 80 mg by mouth at bedtime. Active baclofen 10 mg tablet Take 10 mg by mouth two times daily. Active calcium carbonate (Tums) 200 mg calcium (500 mg) chewable tablet Chew 1,000 mg by mouth two times daily. Active cholecalcifero l (Vitamin D) 1,000 unit tablet Take 1,000 units by mouth once daily. Active ferrous sulfate 325 mg (65 mg iron) tablet Take 325 mg by mouth once every other day. Active furosemide (LASIX) 40 mg tablet Take 40 mg by mouth once daily in the morning. Active lisinopriL (PRINIVIL; ZESTRIL) 40 mg tablet Take 40 mg by mouth once daily. Active metFORMIN (GLUCOPHAGE XR) 500 mg Extended-Relea se tablet Take 1,000 mg by mouth once daily with evening meal. Active metoprolol succinate (TOPROL XL) 100 mg Sustained-Rele ase tablet Take 100 mg by mouth once daily. Active ondansetron (ZOFRAN) 4 mg tablet Take 4 mg by mouth four times daily. Active pantoprazole (PROTONIX) 40 mg delayed-releas e tablet Take 40 mg by mouth two times daily before meals. Active polyethylene glycol (MIRALAX; GLYCOLAX) 17 g per packet packet Mix 1 Packet in liquid then take by mouth once daily. Active potassium chloride (MICRO-K) 10 mEq Controlled-rel ease capsule Take 10 mEq by mouth two times daily with meals. Active clotrimazole (LOTRIMIN) 1 % cream Apply topically to affected area(s) two times daily. To groin Active bacitracin (Antibiotic (bacitracin zinc)) 500 unit/gram ointment Apply topically to affected area(s) two times daily. Active acetic acid 0.25% 0.25 % irrigation Irrigate to affected area two times daily. To buttock wounds Active furosemide (Lasix) 20 mg tablet Take 20 mg by mouth once daily in the afternoon. Active sennosides-doc usate (Senna-S) (8.6-50 mg) tablet Take 2 Tablets by mouth once daily. Active sennosides-doc usate (Senna-S) (8.6-50 mg) tablet Take 1 Tablet by mouth once daily if needed for Constipation. Active latanoprost (XALATAN) 0.005 % ophthalmic solution Place 1 Drop into both eyes at bedtime. Active carbamide peroxide (Debrox) 6.5 % otic solution Place 5 Drops into both ears every Monday. At bedtime every Monday Active oxyCODONE (ROXICODONE) 5 mg immediate release tabletIndicati ons:Chronic ulcer of sacral region, unspecified ulcer stage (HC) Take 1 Tablet (5 mg) by mouth two times daily. 16 Tablet 02/08/20 25 Active oxyCODONE (ROXICODONE) 5 mg immediate release tabletIndicati ons:Chronic ulcer of sacral region, unspecified ulcer stage (HC) Take 1 Tablet (5 mg) by mouth every 6 hours if needed for Pain. 16 Tablet 02/08/20 Active oxyCODONE (ROXICODONE) 5 mg immediate release tablet Take 5 mg by mouth two times daily. 2024 Discontinued oxyCODONE (ROXICODONE) 5 mg immediate release tablet Take 5 mg by mouth every 6 hours if needed for Pain. 2024 Discontinued amoxicillin-cl avulanate (AUGMENTIN) 875-125 mg tabletIndicati ons:skin and skin structure infection,isch ial wound Take 1 Tablet by mouth two times daily with meals for 7 days. 14 Tablet 02/08/20 25 2024 trimethoprim-s ulfamethoxazol e 160-800 mg tabIndications :skin and skin structure infection,isch ial wound Take 1 Tablet by mouth two times daily for 7 days. 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 Neurogenic bladder 11/18/2003 Overview (02/06/2025): Last Assessment & Plan: Self-caths and has [...] course to also treat his RLE cellulitis. Multiple sclerosis 06/03/2003 Resolved Problems Problem Noted Date Diagnosed Date Resolved Date Sepsis 02/06/2025 02/06/2025 Osteomyelitis 02/06/2025 02/06/2025 Encounters Date Type Department Care Team Description 02/14/2025 Lab Requisition [facility] [phone] Casandra Zuñiga NP 02/12/2025 Telephone [facility] [address] [facility] [address] [place], [place] [id number] Bijan Khanna MD Error-please disregard (Error/) 02/06/2025 Travel 02/05/2025 11:52 PM CDT - 02/07/2025 5:37 PM CDT Hospital Encounter [facility] [address] [place] [address] [facility], [facility] Hospitalists Of [facility], MD Rubin Zaragoza Kirsten Elizabeth, DO Tidwell, Erick José MD Chronic ulcer of sacral region, unspecified ulcer stage (HC) (Primary Dx) Discharge Disposition: Senior Living Facility 02/03/2025 Lab Requisition [facility] [phone] Carmenza Quiroz NP 01/20/2025 Lab Requisition [facility] [phone] Carmenza Quiroz ACCOUNT MANAGER [employer] 01/14/2025 Lab Requisition [facility] [address] [place] [address] Carmenza Quiroz NP 12/30/2024 Lab Requisition [facility] [phone] Carmenza Quiroz NP 12/23/2024 Lab Requisition [facility] [phone] Carmenza Quiroz ACCOUNT MANAGER [employer] 12/13/2024 Lab Requisition [facility] [phone] Sue Bailey MD 12/09/2024 Lab Requisition [facility] [phone] Carmenza Quiroz NP 11/29/2024 Lab Requisition [facility] [phone] Bijan Crawford MD from Last 3 Months Immunizations Immunization Administration Dates Next Due COVID-19 vaccine (GT [employer] 30mcg/0.3mL) 12YO+ BIVALENT PF, MDV 05/17/2022 Influenza, High-dose Inactivated 05/17/2024 Influenza, High-dose Quadrivalent Inactivated Influenza, IIV3 (Age >=3 years) 05/08/2003,05/23 Pneumococcal Poly,23-Valent (Pneumovax) 03/21/20 19,08/03/2011 Pneumococcal conj 13-Valent (Prevnar 13) 015 RSV, Bivalent Vaccine Recons tituted (Abrysvo 120MCG/0.5mL) 05/17/2024 Td (Age >=7 Years) 08/16/1999 Tdap 04/08/2019,08/21/2009 Zoster (Shingrix-RZV, recombinant) 03/09/2018, Zoster (Zostavax-ZVL, live) 08/21/2009 Social History Tobacco Use Types Packs/Day Years Used Date Smoking Tobacco: Never Passive Smoke Exposure: Never Smokeless Tobacco: Never Tobacco Cessation:Counseling Given: Not Answered Alcohol Use Standard Drinks/Week Comments Never 0 (1 standard drink = 0.6 oz pur e alcohol) Social Connections Answer Date Recorded Do you often feel lonely or isolated from those around you? 0 02/06/2025 Financial Resource Strain Answer Date R ecorded Difficulty of Paying Living Expenses 3 02/06/2025 Difficulty of Paying Living Expenses Not on file 02/06/2025 Food Insecurity Answer Date Recorded Do you worry your food will run out before you are able to buy more? 1 02/06/2025 Transportation Needs Answer Date Record ed Does lack of transportation keep you from medica l appointments? 1 02/06/2025 Does lack of transportation keep you from work, meetings or getting things that you need? 1 02/06/2025 Housing Stability Answer Date Recorded What is your housing situation today? 1 02/06/2025 Interpersonal Safety Answer Date Record ed Are you being hit, kicked, p ushed or yelled at (see row info)? No 02/06/2025 Interpersonal Safety Abuse 12 - 18 Not on file 02/06/2025 Interpersonal Safety Ambulatory Vulnerability No t on file 02/06/2025 Utilities Answer Date Recorded Do you have trouble paying f or utilities (for example, heat, electricity, water, phone)? 1 02/06/2025 Sex and Gender Information Value Date Recorded Sex Assigned at Not on file Legal Sex Male 1:19 PM CDT Gender Identity Not on file Sexual Orientation Not on file Obstetrics History Last Filed Vital Signs Vital Sign Reading Time Taken Comments Blood Pressure 160/78 02/07/2025 5:00 PM CDT Pulse 80 02/07/2025 5:00 PM CDT Temperature 36.6 C (97.9 F) 02/07/2025 7:40 AM CDT Respiratory Rate 18 02/07/2025 5:00 PM CDT Oxygen Saturation 97% 02/07/2025 5:00 PM CDT Inhaled Oxygen Concentration - - Weight 105.4 kg (232 lb 5.8 oz) 02/07/2025 4:00 PM CDT Height 182.9 cm (6') 02/06/2025 12:00 PM CDT Body Mass Index 31.51 02/06/2025 12:00 PM CDT Plan of Treatment Upcoming Encounters Date Type Department Care Team (Late st Contact Info) Description 03/04/2025 9:00 AM CDT Appointment [facility] [address] [place] [address] 06/02/2025 10:30 AM QUALITY ASSURANCE GROUP LEADER Office Visit [facility] [address] [place] [address] Markel Schultz MD [address] [place] [address] Health Maintenance Due Date Last Done Comments Depression screening for age 12+ 1962 BMI (ht and wt on same day) for age 18+ 01/04/1968 Hepatitis C screening for age 18-79 01/04/1968 Colonoscopy through age 75 1995 Lipids for age 45-75 1995 Influenza Vaccine (#1) 2025 , 05/08/2003, 05/23/2002 Tetanus booster 04/08/2029 04/08/2019, 07/25, 08/16/1999 Zoster (shingles) series for age 50+ Completed 03/09/2018, 01/04/2018, 08/21/2009 Pneumococcal series for age 50+ Completed 03/21/2019, 04/21/2015, 08/03/2011 RSV vaccine for adults or Completed 05/17/2024 COVID-19 vaccine series Completed 12/05/19, 05/17/2024, 11/21/2023, Additional history exists Hepatitis B series for 19+ Aged Out N o longer eligible based on patient's age to complete this topic Procedures Procedure Name Priority Date/Time Associated Diagnosis Comments GLUCOSE METER Timed 02/07/2025 7:58 AM CDT WHITE BLOOD COUNT Early AM 02/07/2025 7:0 5 AM CDT HEMOGLOBIN Early AM 02/07/2025 7:05 AM CDT CREATININE Early AM 02/07/2025 7:04 AM CDT MAGNESIUM Early AM 02/07/2025 7:04 AM CDT POTASSIUM Early AM 02/07/2025 7:04 AM CDT GLUCOSE METER Timed 02/06/2025 10:55 PM CDT GLUCOSE METER Timed 02/06/2025 5:27 PM CDT GLUCOSE METER Timed 02/06/2025 3:02 PM CDT HEMOGLOBIN ANDREW 02/06/2025 2:22 PM CDT PLATELET COUNT ANDREW 02/06/2025 2:22 PM CDT APTT ANDREW 02/06/2025 2:22 PM CDT PROTIME-INR ANDREW 02/06/2025 2:22 PM CDT SCAN CORRESP-EKG RESULTS 02/06/2025 1:33 PM CDT GLUCOSE METER Timed 02/06/2025 11:34 AM CDT HEMOGLOBIN Early AM 02/06/2025 9:10 AM CDT C-REACTIVE PROTEIN Early AM 02/06/2025 9: 10 AM CDT WHITE BLOOD COUNT Early AM 02/06/2025 9:1 0 AM CDT BASIC METABOLIC PANEL Early AM 02/06/2025 9:10 AM CDT GLUCOSE METER Timed 02/06/2025 6:17 AM CDT GLUCOSE METER Timed 02/06/2025 2:17 AM CDT CBC WITH AUTO DIFFERENTIAL Routine 02/04/2025 8:04 [...] 8:35 AM CDT Other specified postprocedural states from Last 3 Months Results * (ABNORMAL) GLUCOSE METER (02/07/2025 7:58 AM CDT) Only the most recent of7 resultswithin the time period is included. [facility] Signature GLUCOSE METER 146(H) 65 - 100 mg/dL 02/07/2025 7:58 AM CDT [facility] Blood BLOOD SPECIMEN / Unknown 02/07/2025 7:58 AM CDT 02/07/2025 7:58 AM CDT us Erick Lazaro MD CHEMISTRY Final Resu lt [facility] [address] [place] [address], [place] * WBC AM (02/07/2025 7:05 AM CDT) Only the most recent of2 resultswithin the time period is included. WHITE BLOOD COUNT 7.8 4.5 - 11.0 thou/cu mm 02/07/2025 7:20 AM CDT [facility] NRBC 0.0 % 02/07/2025 7:20 AM CDT [facility] ABS NRBC 0.0 thou /cu mm 02/07/2025 7:20 AM CDT [facility] Blood BLOOD SPECIMEN / Unknown Venipuncture / Unknown 02/07/2025 7:05 AM CDT 02/07/2025 7:11 AM CDT us Erick Lazaro MD HEMATOLOGY Final Resu lt Performing Organization Address [facility] de Phone Number [facility] [address] [place] [address], [place] * (ABNORMAL) Hemoglobin AM (02/07/2025 7:05 AM CDT) Only the most recent of3 resultswithin the time period is included. Pathologist [facility] HEMOGLOBIN 9.6(L) 13.5 - 17.5 g/dL 02/07/2025 7:20 AM CDT [facility] MCV 84 80 - 100 fL 02/07/2025 7:20 AM CDT [facility] Blood BLOOD SPECIMEN / Unknown Venipuncture / Unknown 02/07/2025 7:05 AM CDT 02/07/2025 7:11 AM CDT us Erick Lazaro MD HEMATOLOGY Final Resu lt Performing Organization Address City/[facility] Co de Phone Number [facility] [address] [place] [phone], [place] * Potassium AM (02/07/2025 7:04 AM CDT) POTASSIUM 3.6 3.5 - 5.1 mmol/L 02/07/2025 7:46 AM CDT [facility] Blood BLOOD SPECIMEN / Unknown Venipuncture / Unknown 02/07/2025 7:04 AM CDT 02/07/2025 7:11 AM CDT Erick Lazaro MD CHEMISTRY Final Resu Performing Organization Address City/[facility] Co de Phone Number [facility] [address] [address], [place] * (ABNORMAL) Creatinine AM (02/07/2025 7:04 AM CDT) Pathologist [facility] eGFR 90(L) >90 mL/min/1.7 3m2 02/07/2025 7:46 AM CDT [facility] Comment:As of 2021, eG FR is calculated by the CKD-EPI creatinine equation without race adjustment. eGFR can be influenced by muscle mass, exercise, and diet. The reported eGFR is an estimation only and is only applicable if the renal function is stable. CREATININE 0.87 0.70 - 1.20 mg/dL 02/07/2025 7:46 AM CDT [facility] Blood BLOOD SPECIMEN / Unknown Venipuncture / Unknown 02/07/2025 7:04 AM CDT 02/07/2025 7:11 AM CDT us Erick Lazaro MD CHEMISTRY Final Resu Performing Organization Address [facility] Co de Phone Number [facility] [address] [address], [place] * Magnesium AM (02/07/2025 7:04 AM CDT) Pathologist [facility] MAGNESIUM 1.6 1.6 - 2.4 mg/dL 02/07/2025 7:46 AM CDT [facility] Blood BLOOD SPECIMEN / Unknown Venipuncture / Unknown 02/07/2025 7:04 AM CDT 02/07/2025 7:11 AM CDT Erick Lazaro MD CHEMISTRY Final Resu lt [facility] [address] [address], [place] * PLATELET COUNT (02/06/2025 2:22 PM CDT) PLATELET COUNT 202 140 - 440 thou/cu mm 02/06/2025 2:45 PM CDT [facility] MPV 9.0 6.5 - 11.0 fL 02/06/2025 2:45 PM CDT [facility] Blood BLOOD SPECIMEN / Unknown Butterfly / Unknown 02/06/2025 2:22 PM CDT 02/06/2025 2:39 PM CDT Narrative [facility] - 02/06/2025 2:45 PM CDT Obtain before initiating IV heparin therapy if not done within previous 24 hours. Obtain before initiating IV heparin therapy if not done within previous 24 hours. Erick Lazaro MD HEMATOLOGY Final Resu lt Performing Organization Address [facility]/ZIP Co de Phone Number [facility] [address] [address], [place] * APTT (02/06/2025 2:22 PM CDT) APTT 34 25 - 36 sec 02/06/2025 2:52 PM CDT [facility] Blood BLOOD SPECIMEN / Unknown Butterfly / Unknown 02/06/2025 2:22 PM CDT 02/06/2025 2:39 PM CDT Narrative [facility] - 02/06/2025 2:52 PM CDT Therapeutic Range: 59-89 seconds us Erick Lazaro MD HEMATOLOGY Final Resu lt [facility] [address] [place] [address], [place] * (ABNORMAL) PROTIME-INR (02/06/2025 2:22 PM CDT) INR 1.3(H) <1.3 02/06/2025 2:52 PM CDT [facility] PROTIME 15.0(H) 10.6 - 12.4 sec 02/06/2025 2:52 PM CDT [facility] Blood BLOOD SPECIMEN / Unknown Butterfly / Unknown 02/06/2025 2:22 PM CDT 02/06/2025 2:39 PM CDT Narrative [facility] - 02/06/2025 2:52 PM CDT Therapeutic Range 2.0-3.0 for most anticoagulated patients 2.5-3.5 or 4.0 for high risk patients The INR is only used for patients on stable oral anticoagulant therapy. It makes no significant contribution to the diagnosis or treatment of patients whose Protime is prolonged for other reasons. INR results are increased when heparin levels exceed 1.0 U/mL, which corresponds to an aPTT >125 seconds if the patient is on UFH. Eirck Lazaro MD HEMATOLOGY Final Resu lt [facility] [address] [place] [address], [place] * SCAN CORRESP-EKG RESULTS (02/06/2025 1:33 PM CDT) Narrative 02/06/2025 1:33 PM CDT Ordered by an unspecified provider. Other Clinical Staff OTHER Final Resul t * (ABNORMAL) C-reactive protein (02/06/2025 9:10 AM CDT) Only the most recent of3 resultswithin the time period is included. C-REACTIVE PROTEIN 12.4(H) <0.5 mg/dL 02/06/2025 9:49 AM CDT [facility] Blood BLOOD SPECIMEN / Unknown Venipuncture / Unknown 02/06/2025 9:10 AM CDT 02/06/2025 9:25 AM CDT us Roz Jewell MD CHEMISTRY Final Result [facility] [address] [place] [address], [place] * (ABNORMAL) Basic metabolic panel AM (02/06/2025 9:10 AM CDT) Only the most recent of5 resultswithin the time period is included. SODIUM 140 136 - 145 mmol/L 02/06/2025 9:49 AM CDT [facility] POTASSIUM 3.5 3.5 - 5.1 mmol/L 02/06/2025 9:49 AM CDT [facility] CHLORIDE 105 98 - 107 mmol/L 02/06/2025 9:49 AM CDT [facility] CO2,TOTAL 25 22 - 29 mmol/L 02/06/2025 9:49 AM CDT [facility] ANION GAP 10 5 - 18 02/06/2025 9:49 AM CDT [facility] GLUCOSE 163(H) 70 - 99 mg/dL 02/06/2025 9:49 AM CDT [facility] CALCIUM 9.1 8.8 - 10.4 mg/dL 02/06/2025 9:49 AM T [facility] Comment: Reference ranges for this test were updated on 05/28/2024 to reflect our healthy population more accurately. Reference range changes are not retroactively applied to results, but previous results using the same methodology can be interpreted in the context of the new reference range. BUN 18 8 - 23 mg/dL 02/06/2025 9:49 AM CDT [facility] CREATININE 0.94 0.70 - 1.20 mg/dL 02/06/2025 9:49 AM CDT [facility] BUN/CREAT RATIO 19 10 - 20 9:49 AM T [facility] eGFR 85(L) >90 mL/min/1. 73m2 02/06/2025 9:49 AM T [facility] Comment:As of 2021, eG FR is calculated by the CKD-EPI creatinine equation without race adjustment. eGFR can be influenced by muscle mass, exercise, and diet. The reported eGFR is an estimation only and is only applicable if the renal function is stable. Blood BLOOD SPECIMEN / Unknown Venipuncture / Unknown 02/06/2025 9:10 AM CDT 02/06/2025 9:25 AM CDT Roz Jewell MD CHEMISTRY Final Result [facility] [address] [place] [address], [place] * (ABNORMAL) CBC WITH AUTO DIFFERENTIAL (02/04/2025 8:04 AM CDT) Only the most recent of6 resultswithin the time period is included. WHITE BLOOD COUNT 13.1(H) 4.5 - 11.0 thou/cu mm 02/04/2025 9:[address] [facility] RED BLOOD COUNT 4.12(L) 4.30 - 5.90 mil/cu mm 02/04/2025 9:[address] [facility] HEMOGLOBIN 10.6(L) 13.5 - 17.5 g/dL 02/04/2025 9:[address] [facility] HEMATOCRIT 35.5(L) 37.0 - 53.0 % 02/04/2025 9:[address] [facility] MCV 86 80 - 100 fL 02/04/2025 9:[address] [facility] MCH 25.7(L) 26.0 - 34.0 pg 02/04/2025 9:[address] [facility] MCHC 29.9(L) 32.0 - 36.0 g/dL 02/04/2025 9:[address] [facility] RDW 18.8(H) 11.5 - 15.5 % 02/04/2025 9:[address] [facility] PLATELET COUNT 244 140 - 440 thou/cu mm 02/04/2025 9:[address] [facility] MPV 9.7 6.5 - 11.0 fL 02/04/2025 9:[address] [facility] % NEUT 81.3 % 02/04/2025 9:[address] [facility] % LYMPH 11.6 % 02/04/2025 9:[address] [facility] % MONO 5.8 % 02/04/2025 9:[address] [facility] % EOS 1.3 % 02/04/2025 9:[address] [facility] % BASO 0.0 % 02/04/2025 9:[address] [facility] ABSOLUTE NEUTROPHILS 10.6(H) 1.7 - 7.0 thou/cu mm 02/04/2025 9:[address] [facility] ABSOLUTE LYMPHOCYTES 1.5 0.9 - 2.9 thou/cu mm 02/04/2025 9:[address] [facility] ABSOLUTE MONOCYTES 0.8 <0.9 thou/cu mm 02/04/2025 9:[address] [facility] ABSOLUTE EOSINOPHILS 0.2 <0.5 thou/cu mm 02/04/2025 9:[address] [facility] ABSOLUTE BASOPHILS 0.0 <0.3 thou/cu mm 02/04/2025 9:[address] [facility] Blood BLOOD SPECIMEN / Unknown Venipuncture / Unknown 02/04/2025 8:04 AM CDT 02/04/2025 9:39 AM CDT us Carmenza Quiroz NP HEMATOLOGY Final Resul t [facility] [address] [place] [address] * TSH (01/14/2025 7:40 AM CDT) TSH 2.69 0.27 - 4.20 uIU/mL 01/14/2025 9:16 AM CDT [facility] Blood BLOOD SPECIMEN / Unknown Butterfly / Unknown 01/14/2025 7:40 AM CDT 01/14/2025 8:42 AM CDT Narrative [facility] - 01/14/2025 9:16 AM CDT In Adults, TSH values between 5.00 and 10.00 uIU/ml do not necessarily indicate the presence of Hypothyroidism. Correlation with clinical findings such as presence of goiter and/or Thyroperoxidase (TPO) Antibody may be helpful. For more information please refer to LUIGI 2004; 291: 228-238. us Carmenza Quiroz NP CHEMISTRY Final Resul t Performing Organization Address [facility]/ZIP Co de Phone Number [facility] [address] [place] [address] * ALT (SGPT) (01/14/2025 7:40 AM CDT) ALT (SGPT) 19 10 - 50 IU/L 01/14/2025 9:16 AM CDT [facility] Blood BLOOD SPECIMEN / Unknown Butterfly / Unknown 01/14/2025 7:40 AM CDT 01/14/2025 8:42 AM CDT Carmenza Quiroz NP CHEMISTRY Final Resul t [facility] [address] [place] [address] * ALK PHOSPHATASE (01/14/2025 7:40 AM CDT) ALK PHOSPHATASE 85 40 - 129 IU/L 01/14/2025 9:16 AM CDT [facility] Blood BLOOD SPECIMEN / Unknown Butterfly / Unknown 01/14/2025 7:40 AM CDT 01/14/2025 8:42 AM CDT Carmenza R Gabriella ACCOUNT MANAGER [employer] CHEMISTRY Final Resul t Performing Organization Address [facility] Co de Phone Number [facility] [address] [place] [address] * (ABNORMAL) PRO-BNP (01/14/2025 7:40 AM CDT) PRO-BNP 1,544(H) <450 pg/mL 01/14/2025 9:19 AM CDT [facility] [facility] Blood BLOOD SPECIMEN / Unknown Butterfly / Unknown 01/14/2025 7:40 AM CDT 01/14/2025 8:42 AM CDT [facility] - 01/14/2025 9:19 AM CDT [...] OUTS Final Resul t Performing Organization Address [facility] Co de Phone Number [facility] [address] [place] [address] * (ABNORMAL) RED CELL MORPHOLOGY (12/31/2024 7:10 AM CDT) ELLIPTOCYTES Few 12/31/2024 10:44 AM CDT [facility] POLYCHROMASIA Slight 12/31/2024 10:44 AM CDT [facility] TEARDROP CELLS Few 12/31/2024 10:44 AM CDT [facility] RBC COMMENT Present(A) RBC morphology appears normal, RBC morphology within normal limits for newborns. 12/31/2024 10:44 AM CDT [facility] *BASOPHILIC STIPPLING Present 12/31/2024 10:44 AM CDT [facility] Blood BLOOD SPECIMEN / Unknown Butterfly / Unknown 12/31/2024 7:10 AM CDT 12/31/2024 9:36 AM CDT us Carmenza Quiroz NP HEMATOLOGY Final Resul t Performing Organization Address City/[facility]/ZIP Co de Phone Number [facility] [address] [place] [address] * PLATELET ESTIMATE (12/31/2024 7:10 AM CDT) PLATELET ESTIMATE Adequate Adequate, No estimate 12/31/2024 10:44 AM CDT [facility] Blood BLOOD SPECIMEN / Unknown Butterfly / Unknown 12/31/2024 7:10 AM CDT 12/31/2024 9:36 AM CDT us Carmenza Quiroz NP HEMATOLOGY Final Resul t Performing Organization Address City/[facility]/ZIP Co de Phone Number [facility] [address] [place] [address] * LAB TRACKING EVENT (12/13/2024 3:58 PM CDT) Other (Other) Client Collect / Unknown 12/13/2024 3:58 PM CDT 12/13/2024 10:08 PM CDT us Sue Bailey MD LAB BILL ONLY Final Re sult [facility] [address] [place] [address], [place] * PATH TISSUE EXAM (12/13/2024 3:58 PM CDT) Case Report Pathology Report Case: [id number] Authorizing Provider: Sue Bailey MD Collected: 12/13/2024 1558 Ordering Location: [facility] Received: 12/14/2024 0858 Pathologist: Shay Noland MD Specimen: Left Buttock, left buttock pressure ulcer tissue 12/19/2024 1:42 PM CDT [facility] Final Diagnosis A) SOFT TISSUE, LEFT BUTTOCK, DEBRIDEMENT: Fibroadipose tissue with necrosis and foci of acute inflammation 12/19/2024 1:42 PM CDT [facility] at 1341 CDT Clinical Information Pressure ulcer on the left buttock. 12/19/2024 1:42 PM CDT [facility] Gross Description A) Received in formalin, labeled with the patient's name and L buttock pressure ulcer tissue, is a 7.5 x 5.5 x 3.3 cm aggregate of multiple irregular portions of sandoval-brown, dusky and ragged soft tissue. No lesions or masses are identified. Radiation Physicist sections are submitted in 1 cassette. JKG 12/17/2024 12/19/2024 1:42 PM CDT [facility] Microscopic Description The final diagnosis is based on microscopic examination of appropriate sections of all specimens. 12/19/2024 1:42 PM CDT [facility] Additional Information Interpreted at [facility] - [address], [place] [address] 12/19/2024 1:42 PM CDT [facility] Other (Left Buttock) 12/13/2024 3:58 PM CDT 12/14/2024 8:58 AM CDT us Sue Bailey MD PATHOLOGY/CYTOLOGY Final Result [facility] [address] [place] [address], * VITAMIN B12 (12/10/2024 7:05 AM CDT) VITAMIN B12 510 232 - 1,245 pg/mL 12/10/2024 12:14 PM CDT [facility] Blood BLOOD SPECIMEN / Unknown Venipuncture / Unknown 12/10/2024 7:05 AM CDT 12/10/2024 7:47 AM CDT Narrative [facility] - 12/10/2024 12:14 PM CDT Biotin supplements may cause clinically significant interference for this test assay. If interference is suspected, it is strongly recommended that biotin is discontinued for at least one week prior to retesting. us Carmenza Quiroz NP CHEMISTRY Final Resul t [facility] [address] [place] [address], from Last 3 Months Additional Health Concerns Infection Onset Date Last Indicated MDRO Clearance Comment:Infection Control Note: Hx of ESBL, surveillance criteria met, no need for further testing or isolation precautions. Do not delete or resolve the Infection Flag. Anecdotal +ESBL 02/06/2025 02/06/2025 Insurance [email or web address] Advance Directives Documents on File Type Date Recorded Patient Radiation Physicist Expl anation POLST 01/26/2023 * Full Code (Latest Code Status on File) Date Activated Date Inactivated Comments 02/06/2025 3:46 AM 02/07/2025 7:38 PM Question Answer Comments Code Status Discussion: Reviewed Preferences * Full Code Date Activated Date Inactivated Comments 02/06/2025 12:37 AM 02/06/2025 3:46 AM Question Answer Comments Code Status Discussion: Unable to Assess Preferences, Provider to review later Care Teams Laser Operator Relationship Specialty Start Date End Date Clinic, No Pcp Or . PCP - General 07/31/23 Birdie Taveras RN [address] [facility] [address] [place], [place] [id number] Test Puller - [facility] Registered Nurse 07/24/23 Karrie Singer RN [address] [facility] [address] [place], [place] [phone] Test Puller - [facility] Registered Nurse 07/24/23
--- OUTSIDE RECORDS SUMMARY | 2025-02-16 10:58 | XMS_ITS | Clinical Summary ---
Author Organization [facility] Address [address] [place] [address] Care Team Providers Care Crt Name Role Phone Jeff Reyes M.D. Primary Care Provider [phone] Source Comments Patient records contain information from all sites at [facility]. For routine questions regarding patient records, call [phone] during business hours, M-F 8:00 AM - 5:00 PM Central Time. 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 Assessment & Plan (07/04/2018 2:56 PM HYGIENE COORDINATOR): Continue I&O catheterization as needed Multiple Sclerosis 06/03/2003 Assessment & Plan (07/04/2018 3:32 PM HYGIENE COORDINATOR): -Continue to follow with Neurology for further recommendations Resolved Problems Problem Noted Date Diagnosed Date Resolved Date Sprain Ankle Initial Right 11/08/2022 0 11/09/2022 Obesity Unspecified 03/21/2019 11/10/19 23 Urinary Tract Infection Site Not Specified 07/04/2018 11/09/2022 Overview (07/04/2018): Completed ciprofloxacin 500 mg b.i.d. for an antibiotic course of 14 days (last dose on 06/08/2018) Assessment & Plan (07/04/2018 3:31 PM HYGIENE COORDINATOR): -Patient denies any urinary symptoms today on exam. -Continue care cranberry 450 mg daily Failure Renal Acute (Acute Kidney Injury) 05/27/2018 10/19/2022 Non-ST Elevation Myocardial Infarction 05/26/2018 10/23/2019 Assessment & Plan (07/04/2018 10:14 AM HYGIENE COORDINATOR): 1. Continue aspirin 81 mg daily 2. [...] CDT Hospital Encounter Department of Radiology in [place] [id number] [place] [address] Anuel Nunn M.D. Cholecystitis Discharge Disposition: Home or Self Care 01/31/2025 Clinical Communication Department of Oncology in [place], [place] [address] [place] [address] Pablo Vo M.D. Nurse call back 01/23/2025 5:26 PM CDT - 01/24/2025 12:[address] [facility] Emergency Department [address] [place] [phone] Ollie Walters M.D. 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 12/17/2024 Orders Only [facility] SELF [facility] [address] [place] [id number] Jeff Reyes M.D. Screening Cancer Colon 12/03/2024 Orders Only [facility] SELF TEST [facility] [address] [place] [address] Jeff Reyes M.D. Screening Cancer Colon from Last 3 Months Immunizations Immunization Administration [...] oz pur e alcohol) [facility] [employer] Answer Date Recorded In the past 12 months has e [employer], gas, oil, or water [employer] threatened to shut off services in your [...] your living situation today? I have a [facility] place to live 11/08/2024 Education Answer Date Recorded What is the highest level of school you have completed or the highest degree you have received? 12th grade 10/18/2022 Sex and Gender Information Value Date Recorded Sex Assigned at Male 06/26/2018 4:20 PM HYGIENE COORDINATOR Legal Sex Male 3:33 AM HYGIENE COORDINATOR Gender Identity Not on file Sexual [...] Body Mass Index 34.23 09/15/2024 3:21 PM HYGIENE COORDINATOR Plan of Treatment Upcoming Encounters Date Type Department Care Team (Late st Contact Info) Description 02/21/2025 11:00 AM CDT Virtual Visit Department of Oncology in [place], [place] [address] [facility] [place] [phone] Pablo oV M.D. [address] [place] [phone] 03/04/2025 9:00 AM CDT Appointment Department of Radiology in [place], [place] [address] [place] [address] Pablo Vo M.D. [address] [place] [phone] Health Maintenance Due Date Last Done Comments [...] Blood Pressure Check / Re-check 11/12/2025 11/12/2024 Sodium Level 02/06/2026 02/06/2025, 01/21, 01/23/2025, Additional history exists Creatinine Level (Kidney Function Test) 02/07/2026 02/07/2025, 02/06/2025, 02/04/2025, Additional history exists Potassium Level 02/07/2026 02/07/2025, 01/21, 02/04/2025, Additional history exists Fasting Glucose for Diabetes Screening 02/07/2028 02/06/2025, 02/04/2025, 01/23/2025, Additional history exists DTaP,Tdap,and Td Vaccines (3 [...] this topic Medical Devices Implanted Type Area Inspector Packer Glass Container Device Identifier Shelf Expiration Date Model / Serial / Lot Scrw St 24pthrd 8.0x105 - [id number] Implanted:Qty : 1 on 12/15/2022 by Jana Don M.D. at [facility] Hardware e.g. pins/screws/ rods Right: [employer] [id number] [id number] / / Scrw Vthrd Fast 7.0x105 - [id number] Implanted:Qty : 2 on 12/15/2022 by Jana Don M.D. at [facility] Hardware e.g. pins/screws/ rods Right: [employer] [id number] [id number] / / Washr Flt 1.5x13 - [id number] Implanted:Qty : 4 on 12/15/2022 by Jana Don M.D. at [facility] Hardware e.g. pins/screws/ rods Right: [employer] [id number] / / Procedures Procedure Name Priority Date/Time Associated Diagnosis Comments IR PERCUTANEOUS CHOLECYSTOSTOMY TUBE EXCHANGE RAD - Routine (most inpatients and all outpatients) 02/04/2025 1:28 PM CDT Cholecystitis DIPSTICK, U STAT 01/23/2025 8:37 PM CDT [...] CDT ECG STAT 01/23/2025 5:18 PM CDT LIPID PANEL, S Routine 11/05/2024 9:32 AM CDT Cholecystitis Preoperative Examination Cardiovascular Hyperlipidemia On Treatment Atherosclerotic Heart Disease Of Ak Chin Coronary Artery Without Angina Pectoris from Last 3 Months or Most Recently Relevant to Health Maintenance Results * IR Percutaneous Cholecystostomy Tube Exchange [...] male with history of cholecystitis requiring 14 [place] cholecystostomy catheter, routine 3 month exchange COMPARISON: [...] medications. Patient education provided by a care assembler steam and gas turbine. Patient was ready to learn with no apparent learning barriers were identified. Post-procedure care explained; patient expressed understanding of the content. PROCEDURE DETAILS: Sedation: None. Sedation time: Not applicable. Estimated Blood Loss: Less than 10 mL. TECHNIQUE: Imaging guidance for catheter exchange: Fluoroscopy with permanent image storage Access side: Right lateral abdomen intercostal transhepatic Catheter: 14 [place] 25 cm multipurpose pigtail drain Technique: The indwelling catheter was injected with contrast. A guidewire was inserted through the catheter, and the catheter was exchanged for a new 14 [place] catheter. Contrast was injected confirming the location [...] medications. Patient education provided by a care assembler steam and gas turbine. Patient was ready to learn withno apparent learning barriers were identified. Post-procedure careexplained; patient expressed understanding of the content. PROCEDURE DETAILS: Sedation: None. Sedation time: Not applicable. Estimated Blood Loss: Less than 10 mL. TECHNIQUE: Imaging guidance for catheter exchange: Fluoroscopy with permanent imagestorage Access side: Right lateral abdomen intercostal transhepatic Catheter: 14 [place] 25 cm multipurpose pigtail drain Technique: The indwelling catheter was injected with contrast. A guidewirewas inserted through the catheter, and the catheter was exchanged for anew 14 [place] catheter. Contrast was injected confirming the location [...] IMG IR PROCEDURES Final Resul t * (ABNORMAL) Dipstick, Urine (01/23/2025 8:37 PM [...] M.D. LAB URINE ORDERABLES Fin al Result [address] [place] [address] * Microscopic Automated (01/23/2025 8:37 PM CDT) [...] ORDERABLES Fin al Result Performing Organization Address [facility] Co de Phone Number [facility] [address] [place] [address] * pH, Urine (01/23/2025 8:37 PM CDT) pH, U 5.4 4.5 - 8.0 01/23/2025 9:0 3 PM CDT DTL Urine 01/23/2025 8:37 PM CDT 01/23/2025 8:49 PM CDT Chung Mehta M.D. LAB URINE ORDERABLES Fin al Result Performing Organization Address [facility] Co de Phone Number [facility] [address] [place] [address] * Osmolality, Urine (01/23/2025 8:37 PM CDT) Osmolality, U 409 150 - 1150 mOsm/kg 01/23/2025 9:03 PM CDT DT Urine 01/23/2025 8:37 PM CDT 01/23/2025 8:49 PM CDT Chung Mehta M.D. LAB URINE ORDERABLES Fin al Result Performing Organization Address [facility] Co de Phone Number [facility] [address] [place] [address] * Urinalysis, with Microscopic: Urine, Catheter (01/23/2025 [...] ORDERABLES Fin al Result Performing Organization Address [facility]/ZIP Co de Phone Number [facility] [address] [place] [address] * (ABNORMAL) Sedimentation Rate (01/23/2025 8:36 PM CDT) Sedimentation Rate, B 109(H) 3 - 28 mm/h 01/23/2025 9:29 PM CDT DTL Blood (Blood, Venous) 01/23/2025 8:36 PM CDT 01/23/2025 8:47 PM CDT Chung Mehta M.D. LAB BLOOD ADD-ON Final R esult [facility] [address] [place] [address] * (ABNORMAL) CRP (C-Reactive Protein) (01/23/2025 8:36 PM CDT) C-Reactive Protein (CRP), S 124.8(H) <5.0 mg/L 01/23/2025 9:28 PM CDT DTL Blood (Blood, Venous) 01/23/2025 8:36 PM CDT 01/23/2025 9:01 PM CDT us Chung Mehta M.D. LAB BLOOD ADD-ON Final R esult Performing Organization Address City/[facility]/ZIP Co de Phone Number [facility] [address] [place] [address] * Bacteria / Zenobia Culture, Blood #2 (01/23/2025 8:34 PM CDT) Only the most recent of2 resultswithin the time period is included. Pathologist [facility] Bacteria/Vannessa da Culture, Blood No growth after 5 days of incubation. 01/28/2025 9:02 PM CDT DT Blood (Blood, Peripheral Draw) 01/23/2025 8:34 PM CDT 01/23/2025 8:50 PM CDT Comment:Specimen Source Site : Blood Chung Mehta M.D. LAB MICROBIOLOGY - GENER AL ORDERABLES Final Result Performing Organization Address [facility] Co de Phone Number [facility] [address] [place] [address] * Lactate for Sepsis with Reflex (01/23/2025 8:32 PM CDT) Pathologist [facility] Lactate, P 1.3 0.5 - 2.2 mmol/L 01/23/2025 8:59 PM CDT ST[facility] Blood (Blood, Venous) 01/23/2025 8:32 PM CDT 01/23/2025 8:44 PM CDT us Chung Mehta M.D. LAB BLOOD NON ADD-ON Fin al Result Performing Organization Address City/[facility]/ZIP Co de Phone Number [facility] [address] [place] [address], [facility] [address] [place] [address] * CT Abdomen Pelvis with IV Contrast [...] the ischium and associated sclerosis. Procedure Note Fransicso Callaway M.D., M.S. - 01/23/2025 EXAM: CT [...] * Lactate, B (01/23/2025 6:55 PM CDT) [facility] Lactate, B 1.2 0.5 - 2.2 mmol/L 01/23/2025 7:05 PM CDT [facility] Blood (Blood, Venous) 01/23/2025 6:55 PM CDT 01/23/2025 7:02 PM CDT Ollie Walters M.D. LAB BLOOD NON ADD-ON Final Res ult [facility] [address] [place], [place] [phone] [place] [address] [place] [address] * (ABNORMAL) CBC without Differential (01/23/2025 6:55 PM CDT) [facility] Hemoglobin 10.6(L) 13.2 - 16.6 g/dL 01/23/2025 [...] BLOOD ADD-ON Final Result Performing Organization Address [facility]/ZIP Co de Phone Number [facility] [address] STMA [facility] [address] [place] [address] * Lipase (01/23/2025 6:55 PM CDT) Pathologist [facility] Lipase, S 16 13 - 60 U/L 01/23/2025 7: 42 PM CDT DTL Blood (Blood, Venous) 01/23/2025 6:55 PM CDT 01/23/2025 7:25 PM CDT us Ollie Walters M.D. LAB BLOOD ADD-ON Final Result Performing Organization Address City/[facility]/ZIP Co de Phone Number [facility] [address] [place] [address], [facility] DTL [facility] [address] [place] [address] * (ABNORMAL) Basic Metabolic Panel (01/23/2025 6:55 [...] Walters M.D. LAB BLOOD ADD-ON Final Result [facility] [address] [place] [address], [facility] [address] [place] [address] * ECG 12 Lead (01/23/2025 5:18 PM CDT) Ventricular Rate ECG/Min 79 BPM MUSE NE Interval 210 ms MUSE QRSD Interval 96 ms MUSE QT Interval 370 ms MUSE QTC Interval 424 ms MUSE P [place] 42 degrees MUSE R [place] -12 degrees MUSE T Wave [place] 47 degrees MUSE 01/23/2025 5:18 PM CDT [...] ECG ORDERABLES Final Result MUSE NA * (ABNORMAL) Lipid Panel (11/05/2024 9:32 AM [...] or more) Yes 11/05/2024 9:32 AM CDT OW Blood (Blood, Venous) 11/05/2024 9:32 AM CDT 11/05/2024 9:34 AM CDT Thaddeus Li M.D. LAB BLOOD ADD-ON Final Result Performing Organization Address City/State/[facility] Co de Phone Number [facility] [address] [place] [address], [place] OWAT [facility] in [place] [address] [place] [address] from Last 3 Months or Most Recently Relevant to Health Maintenance Insurance [employer]ICA Advance Directives For more information, please contact: [phone] Documents on File Type Date Recorded Patient Solvent Process Extractor Operator Expl anation Advance Directives 08/08/2024 6:58 AM [...] Answer Comments Full Code: Discussed Care Teams Crt Relationship Specialty Start Date End Date Jeff Reyes M.D. [address] [place] [address] PCP - General 03/14/24
--- OUTSIDE RECORDS SUMMARY | 2025-02-16 10:59 | XMS_ITS | Encounter Summary ---
Author Organization [facility] Address [address] [place] [address] Care Team Providers Care Booth Supervisor Name Role Phone Jeff Reyes M.D. Primary Care Provider [phone] Reason for Visit * Reason Onset Date Comments Nurse call back 01/31/2025 Encounter Details Date Type Department Care Team (Late st Contact Info) Description 01/31/2025 Clinical Communication Department of Oncology in [place], [place] [address] [place] [address] Pablo Vo M.D. [address] [place] [phone] Nurse call back Social History Tobacco Use Types Packs/Day Years Used Date Smoking Tobacco: Former Cigarettes Q uit: 1977 Passive Smoke Exposure: Never Alcohol Use Standard Drinks/Week Comments Not Currently 1 (1 standard drink = 0.6 oz pur e alcohol) [facility] Utilities Answer Date Recorded [...] Assigned at Male 06/26/2018 4:20 PM DATA COMMUNICATIONS TECHNICIAN Legal Sex Male 3:33 AM DATA COMMUNICATIONS TECHNICIAN Gender Identity Not on file Sexual Orientation Not on file documented as of this encounter Plan of Treatment Upcoming Encounters Date Type Department Care Team (Late st Contact Info) Description 02/21/2025 11:00 AM CDT Virtual Visit Department of Oncology in [place], [place] [address] [place] [phone] Pablo Vo M.D. [address] [place] [phone] 03/04/2025 9:00 AM CDT Appointment Department of Radiology in [place], [place] [address] [place] [phone] Pablo Vo M.D. [address] [facility] [place] [place] [phone] documented as of this encounter Visit Diagnoses Not on filedocumented in this encounter Additional Health Concerns Assessment Noted Time PHQ-9 Depression Total Score: 10 018 11:00 AM CDT documented as of this encounter Care Teams Booth Supervisor Relationship Specialty Start Date End Date Jeff Reyes M.D. [address] [place] [phone] PCP - General 03/14/24 documented as of this encounter
--- OUTSIDE RECORDS SUMMARY | 2025-02-16 10:59 | XMS_ITS | Encounter Summary ---
Author Organization [facility] Address [address] [place] [address] Care Team Providers Care Sock Lining Examiner Name Role Phone Jeff Reyes M.D. Primary Care Provider [phone] Encounter Details Date Type Department Care Team (Late st Contact Info) Description 01/21/2025 Clinical Communication Department of Oncology in [place], [place] [address] [place] [phone] Pablo Vo M.D. [address] [place] [phone] Social History Tobacco Use Types Packs/Day Years [...] [facility] 11/08/2024 Education Answer Date Recorded What is the highest level of school you have completed or the highest degree you have received? 12th grade 10/18/2022 Sex and Gender Information Value Date Recorded Sex Assigned at Male 06/26/2018 4:20 PM TRESTLEMAN Legal Sex Male 3:33 AM TRESTLEMAN Gender Identity Not on file Sexual Orientation Not on file documented as of this encounter Miscellaneous Notes * Telephone Encounter - Nadia Robertson R.N. - 01/21/2025 2:02 PM CDT Left [...] CDT Virtual Visit Department of Oncology in [place], [place] [address] [place] [address] Pablo Vo M.D. [address] [facility] [place] [address] 03/04/2025 9:00 AM CDT Appointment Department of Radiology in [place], [place] [address] [facility] [place] [address] Pablo Vo M.D. [address] [facility] [place] [address] documented as of this encounter Visit Diagnoses Not on filedocumented in this encounter Additional Health Concerns Assessment Noted Time PHQ-9 Depression Total Score: 10 018 11:00 AM CDT documented as of this encounter Care Teams Sock Lining Examiner Relationship Specialty Start Date End Date Jeff Reyes M.D. [address] [place] [address] PCP - General 03/14/24 documented as of this encounter
--- OUTSIDE RECORDS SUMMARY | 2025-02-16 10:59 | XMS_ITS | Encounter Summary ---
Author Organization [facility] Address [address] [place] [address] Care Team Providers Care Market Relationship Manager Name Role Phone Jeff Reyes M.D. Primary Care Provider [phone] Encounter Details Date Type Department Care Team (Latest Contact Info) Description 08/07/2024 Intake [facility] Social History Tobacco Use Types Packs/Day Years Used Date Smoking Tobacco: Former Cigarettes Q uit: 1977 Passive Smoke Exposure: Never Alcohol Use Standard Drinks/Week Comments Not Currently 1 (1 standard drink = 0.6 oz pur e alcohol) [facility] Utilities Answer Date Recorded In the past 12 months has e [employer], gas, oil, or water [employer] threatened to shut off services in your [...] living situation today? I have a [facility] place to live 11/08/2024 Education Answer Date Recorded What is the highest level of school you have completed or the highest degree you have received? 12th grade 10/18/2022 Sex and Gender Information Value Date Recorded Sex Assigned at Male 06/26/2018 4:20 PM [employer] CENTER ASSOCIATE Legal Sex Male 3:33 AM [employer] Gender Identity Not on file Sexual Orientation Not on file documented as of this encounter Plan of Treatment Upcoming Encounters Date Type Department Care Team (Late st Contact Info) Description 02/21/2025 11:00 AM CDT Virtual Visit Department of Oncology in [place], [place] [address] [place] [address] Pablo Vo M.D. [address] [place] [address] 03/04/2025 9:00 AM CDT Appointment Department of Radiology in [place], [place] [address] [place] [address] Pablo Vo M.D. [address] [place] [id number] documented as of this encounter Visit Diagnoses Not on filedocumented in this encounter Additional Health Concerns Infection Onset Date Last Indicated Resolved Time MDR GNB 10/24/2024 10/24/202410/2710/27/2024 6:33 AM CDT Assessment Noted Time PHQ-9 Depression Total Score: 10 018 11:00 AM CDT documented as of this encounter Care Teams Market Relationship Manager Relationship Specialty Start Date End Date Jeff Reyes M.D. [address] [place] [address] PCP - General 03/14/24 documented as of this encounter
--- OUTSIDE RECORDS SUMMARY | 2025-02-16 11:00 | XMS_ITS | Patient Health Record ---
Author Organization [facility] Address [address] [place] [address] Care Team Providers Care Fire Chief Deputy Name Role Phone Rubén Paez MD Primary Care Provider Melody Michael [place] Unavailable [phone] Reason For Referral No Information Social History Tobacco Use: Social History Observation Description Date Details (start date - stop date) Former Smoker NA - NA Tobacco Use/Smoking Question Answer Notes Are you a former smoker Section Notes: FAMILY HISTORY: HISTORY OF FAMILY PSYCH: Problems Problem Type SNOMED Code ICD Code Onset Dates Problem Status W/U Status Risk Notes Problem Tinea unguium (406862823) Tinea unguium (B35.1) Active confirmed Problem 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 (855629324) 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 confirmed Problem 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 Problem Pressure injury of right buttock stage III (disorder) (80772730835199 ) Pressure ulcer of right buttock, stage 3 (L89.313) Active confirmed Problem Pressure injury of right heel stage IV (disorder) (01401525268107 ) Pressure ulcer of right heel, stage 4 (L89.614) Active confirmed Plan Of Treatment No Information Insurance Providers Payer Name Payer Address Payer Phone Subscriber Number Group Number Insured Name Patient Relationship to Insured Coverage Start Date Coverage End Date [id number] (Government Programs) [address] [address] [place], [place] [id number] Ren Ramirez Self - patient is the insured 7 [employer] [address] [place] [address] [phone] [id number] Ren Ramirez Self - patient is the insured 3
--- NOTE | 2025-02-16 11:28 | ED.GENADULT ---
HPI - General Adult General Chief complaint: Weakness Stated complaint: weakness Time Seen by Provider: 02/16/25 11:11 Source: patient Mode of arrival: EMS Limitations: no limitations History of Present Illness HPI narrative: 75-year-old male with a complex medical history who lives at [address] [place] [address] presents today with weakness. Patient states that he felt weak this morning. Nursing staff stated that they had a low blood pressure reading so they sent him via ambulance to the ER. Per EMS he had normal blood pressures when they evaluated him. He states that he feels chronically nauseated, vomited this morning. Patient has been seen frequently in the last 2 months secondary to nonhealing pressure ulcers. He has [address] He also has a cholecystostomy tube in place and a chronic indwelling catheter. He had a PE in October of this year and is chronically anticoagulated with Eliquis. He has been getting most of his care between [facility] and [facility]. He was recently hospitalized at [facility] on February 05 for osteomyelitis. He has a chronic left ischial wound with probable chronic osteomyelitis. It is thought that this is likely not curable. Patient is currently on Augmentin 875 b.i.d. and Bactrim DS p.o. b.i.d. He is supposed to start hyperbaric oxygen therapy soon. Related Data Home Medications ?Medication ?Instructions ?Recorded ?Confirmed acetaminophen 500 mg tablet 1,000 mg PO TID 08/07/24 01/28/25 calcium carbonate (Zachary-Gest 400 mg PO BID 08/07/24 01/28/25 Antacid) cholecalciferol (vitamin D3) 25 25 mcg PO DAILY 08/07/24 01/28/25 mcg (1,000 unit) tablet (Vitamin D3) furosemide 40 mg tablet 40 mg PO DAILY 08/07/24 01/28/25 lisinopril 40 mg tablet 40 mg PO DAILY 08/07/24 01/28/25 metoprolol succinate 100 mg 100 mg PO DAILY 08/07/24 01/28/25 tablet,extended release 24 hr pantoprazole 40 mg tablet,delayed 40 mg PO BID 08/07/24 01/28/25 release polyethylene glycol 3350 17 17 g PO DAILY 08/07/24 01/28/25 gram/dose oral powder potassium chloride 10 mEq 10 meq PO BIDWM 08/07/24 01/28/25 capsule,extended release apixaban 5 mg tablet (Eliquis) 5 mg PO BID 11/16/24 01/28/25 atorvastatin 80 mg tablet 80 mg PO HS 11/16/24 01/28/25 bacitracin 500 unit/gram topical 1 applic topical BID 11/16/24 01/28/25 ointment baclofen 10 mg tablet 10 mg PO BID 11/16/24 01/28/25 diclofenac sodium 1 % topical gel 2 g topical BID PRN 11/16/24 01/28/25 furosemide 20 mg tablet 20 mg PO QPM 11/16/24 01/28/25 latanoprost 0.005 % eye drops 1 drp ophthalmic (eye) HS 11/16/24 01/28/25 ondansetron HCl 4 mg tablet 4 mg PO Q6H PRN 11/16/24 01/28/25 sennosides 8.6 mg-docusate sodium 2 tab-cap PO DAILY 11/16/24 01/28/25 50 mg tablet (Senna Plus) carbamide peroxide 6.5 % ear drops 5 drp otic (ear) Q7D 11/17/24 01/28/25 (Ear Wax Removal Kit) clotrimazole 1 % topical cream 1 applic topical BID 12/12/24 01/28/25 acetic acid 0.25 % irrigation See Rx Instructions .Route BID 01/04/25 01/28/25 solution ferrous sulfate 325 mg (65 mg 325 mg PO Q48H 01/04/25 01/28/25 iron) tablet metformin 500 mg tablet,extended 1,000 mg PO QPM 01/04/25 01/28/25 release 24 hr oxycodone 5 mg tablet 5 mg PO Q6H PRN 01/04/25 01/28/25 sennosides 8.6 mg tablet (senna) 17.2 mg PO DAILY 01/28/25 01/28/25 sodium chloride 0.9 % (flush) (BD ml 01/28/25 PosiFlush Normal Saline 0.9 % injection syringe) Previous Rx's ?Medication ?Instructions ?Recorded allopurinol 100 mg tablet 100 mg PO DAILY #30 tabs 11/19/24 ondansetron HCl 4 mg tablet 4 mg PO Q6H #20 tabs 01/28/25 Allergies Allergy/AdvReac Type Severity Reaction Status Date / Time Haemophilus B polysaccharide Allergy Unknown Verified 02/05/25 15:37 conj w vancomycin Allergy Unknown Verified 02/05/25 15:37 Review of Systems Status of ROS: Reports: 10 or more systems reviewed and unremarkable except as noted in History and below [facility] Medical History Chronic anticoagulation ?Z79.01 - FDC (current) use of anticoagulants (ICD-10) History of pulmonary embolism ?Z86.711 - Personal history of pulmonary embolism (ICD-10) Paraplegia ?G82.20 - Paraplegia, unspecified (ICD-10) Lymphedema ?I89.0 - Lymphedema, not elsewhere classified (ICD-10) Diabetes mellitus ?E11.9 - Type 2 diabetes mellitus without complications (ICD-10) Stage III pressure ulcer of sacral region ?L89.153 - Pressure ulcer of sacral region, stage 3 (ICD-10) Stage III pressure ulcer of buttock ?L89.303 - Pressure ulcer of unspecified buttock, stage 3 (ICD-10) Pressure ulcer of coccygeal region, stage 1 ?L89.151 - Pressure ulcer of sacral region, stage 1 (ICD-10) Neurogenic bowel ?K59.2 - Neurogenic bowel, not elsewhere classified (ICD-10) Hyperuricemia ?E79.0 - Hyperuricemia without signs of inflammatory arthritis and tophaceous disease (ICD-10) Hyperlipidemia ?E78.5 - Hyperlipidemia, unspecified (ICD-10) Hypertension ?I10 - Essential (primary) hypertension (ICD-10) Coronary artery disease ?I25.10 - Atherosclerotic heart disease of [place] coronary artery without angina pectoris (ICD-10) Fracture, intertrochanteric, right femur ?S72.141A - Displaced intertrochanteric fracture of right femur, initial encounter for closed fracture (ICD-10) Sleep apnea ?G47.30 - Sleep apnea, unspecified (ICD-10) Eason catheter in place ?Z97.8 - Presence of other specified devices (ICD-10) Neurogenic bladder ?N31.9 - Neuromuscular dysfunction of bladder, unspecified (ICD-10) Obesity ?E66.9 - Obesity, unspecified (ICD-10) Multiple sclerosis ?G35 - Multiple sclerosis (ICD-10) Surgical History H/O insertion of cholecystostomy tube ?Z98.890 - Other specified postprocedural states (ICD-10) Family History Father Coronary artery disease High blood pressure High cholesterol Sleep apnea Social History Narrative: Resident of [facility]. Daughter Malika is healthcare power of patent prosecution attorney. Code status is DNR. Remote history of smoking What is your current living situation?: I presently have a place to live Problems where you live: no known problems Problems where you live details: NA In the past 12 months, utilities in danger of being shut off: no In past 12 months, lack of transportation kept you from medical appts, meetings, work, or getting things needed for daily living: no In the past 12 mos, have been you worried that your food would run out before you had money to buy more?: never true In the past 12 mos, the food you bought just didn't last and you didn't have money to buy more?: never true Highest level of school completed/degree received: 12th grade, no diploma Smoking Status: Former smoker What tobacco products do you use: cigarettes Smoking quit date/years: >15 years ago Do you use any of these nicotine containing products: None Second hand tobacco smoke exposure: No How often do you have a drink containing alcohol: never How often do you have six or more drinks on one occasion: Never AUDIT-C Alcohol total score: 0 Non-prescribed substance use: denies use Caffeine: Yes (tea and coffee) How often does anyone, including family, friends and others, physically hurt you: unable to answer How often does anyone, including family, friends and others, insult or talk down to you: unable to answer How often does anyone, including family, friends and others, threaten you with harm: unable to answer How often does anyone, including family, friends and others, scream or curse at you: unable to answer service: No Exam Narrative: Exam Narrative: Tired appearing patient in no acute distress. Alert and oriented x3. Answers questions appropriately. Thoughts are goal oriented. Patient speaks in full sentences without needing to catch his breath. HEENT: Normocephalic atraumatic. Pupils are equally round reactive to light. Extraocular muscles are intact. Conjunctivae are moist without any icterus noted. Moist mucous membranes. Neck is soft without pain or lymphadenopathy. Cardiovascular: Heart is regular rate and rhythm S1 and S2 are present without any murmurs. Lungs: Clear to auscultation anteriorly . Patient takes deep breaths without any discomfort. Abdomen: Soft and nontender nondistended with normal bowel sounds. Cholecystostomy tube in place with dry dressing-no surrounding erythema, drainage or bleeding noted. Extremities: Bilateral lower extremities are without pitting edema. Compression stockings in place. Skin: Well perfused. Indwelling catheter draining orange urine. Const: Vital Signs, click to edit/add: Vital Signs - 24 hr 02/16/25 10:58 02/16/25 11:05 02/16/25 11:06 Temperature 97.2 F L Pulse Rate 97 97 Pulse Rate [Pulse Oximeter] 99 Respiratory Rate 16 Blood Pressure 115/58 L Blood Pressure [Ri ght Upper Arm] 115/58 L Pulse Oximetry 96 97 96 Oxygen Delivery Me thod Room Air 02/16/25 11:15 02/16/25 11:25 02/16/25 11:30 Temperature Pulse Rate 93 94 Pulse Rate [Pulse Oximeter] Respiratory Rate 4 L 4 L Blood Pressure Blood Pressure [Ri ght Upper Arm] Pulse Oximetry 97 97 95 Oxygen Delivery Mo thod 02/16/25 11:31 02/16/25 11:45 02/16/25 12:00 Temperature Pulse Rate 92 92 80 Pulse Rate [Pulse Oximeter] Respiratory Rate 3 L 14 14 Blood Pressure 123/51 L Blood Pressure [Ri ght Upper Arm] Pulse Oximetry 94 94 94 Oxygen Delivery Mo thod 02/16/25 12:03 02/16/25 12:15 02/16/25 12:30 Temperature Pulse Rate 79 74 91 Pulse Rate [Pulse Oximeter] Respiratory Rate 14 14 13 Blood Pressure 132/48 L Blood Pressure [Ri ght Upper Arm] Pulse Oximetry 71 L 82 L 97 Oxygen Delivery Mo thod Course Course ED Course: Patient received 500 mL of normal saline en route. EKG, read by me, shows normal sinus rhythm with first-degree AV block. I see no significant ST changes from previous EKG. His pulse is 89. Blood work did not show an elevated white cell count 9 2. Hemoglobin was 10 which is slightly below his baseline. Normal platelet count. He does have an elevated ESR and CRP. CRP today's 13.5, it was 15.7 on the 16th. Chemistries show sodium of 133, elevated creatinine at 2.0 and BUN at 34 which is new for him. His lactate is 2.1. At this time patient is given another 500 mL of normal saline and IV Zofran. Patient has no episodes of vomiting while in the ED. Urinalysis shows 1+ protein 1+ bilirubin. Trace RBCs with 5-10 RBCs present. Patient remained hemodynamically stable while he was here. Vital Signs Vital signs: Initial Vital Signs Temperature 97.2 F L 02/16/25 10:58 Temperature Source Temporal Artery Scan 02/16/25 10:58 Pulse Rate 99 02/16/25 10:58 Respiratory Rate 16 02/16/25 10:58 Blood Pressure 115/58 L 02/16/25 10:58 Blood Pressure Mean 77 02/16/25 10:58 Pulse Oximetry 96 02/16/25 10:58 Oxygen Delivery Method Room Air 02/16/25 10:58 Vital Signs Temperature 97.2 F L 02/16/25 10:58 Pulse Rate 99 02/16/25 10:58 Respiratory Rate 16 02/16/25 10:58 Blood Pressure 115/58 L 02/16/25 10:58 Pulse Oximetry 96 02/16/25 10:58 Oxygen Delivery Method Room Air 02/16/25 10:58 Temperature 97.2 F L 02/16/25 10:58 Pulse Rate 91 02/16/25 12:30 Respiratory Rate 13 02/16/25 12:30 Blood Pressure 132/48 L 02/16/25 12:03 Pulse Oximetry 97 02/16/25 12:30 Oxygen Delivery Method Room Air 02/16/25 10:58 Medications Administered Medications: Discontinued Medications Generic Name Dose Route Start Last Admin Trade Name Freq PRN Reason Stop Dose Admin Sodium Chloride 500 mls @ 500 mls/hr 02/16/25 12:39 02/16/25 13:25 0.9 % Sodium Chloride 500 Ml IV 02/16/25 13:38 500 mls/hr .Q1H ONE Administration Ondansetron HCl 4 mg 02/16/25 12:37 02/16/25 13:24 Ondansetron 2 Mg/Ml Inj IVP 02/16/25 12:38 4 mg ONCE ONE Administration Medical Decision Making MDM Narrative Medical decision making narrative: 75-year-old male with a complex medical history presenting with weakness, nausea and vomiting. This could be secondary to his cholecystostomy tube. Blood work showing acute renal failure likely secondary to acute dehydration. Patient remained hemodynamically stable with normal blood pressures and pulse while he was here. Will be discharged back to [facility] at this time. He already has Zofran available to him. Lab Data Lab results reviewed: Yes I reviewed the patient's lab results Labs: Lab Results 02/16/25 02/16/25 Range/Units 11:44 12:14 WBC 9.20 (4.50-11.00) K/uL RBC 3.88 L (4.30-5.90) m/uL Hgb 10.0 L (13.5-17.5) gm/dL Hct 32.2 L (37.0-53.0) % MCV 83 (80-100) fL MCH 26 (26-34) pg MCHC 31 L (32-36) gm/dL RDW Coeff of Rey 18.3 H (11.5-15.5) % Plt Count 233 (140-440) K/uL Neut % (Auto) 75.9 H (42.0-72.0) % Lymph % (Auto) 12.0 L (20-44) % [place] % (Auto) 9.3 (0.0-11.0) % Eos % (Auto) 1.5 (0.0-7.0) % Baso % (Auto) 0.1 (0.0-3.0) % Neut # (Auto) 7.00 (1.7-7.0) K/uL Lymph # (Auto) 1.10 (0.90-2.90) K/uL [place] # (Auto) 0.90 (0.00-0.90) K/UL Eos # (Auto) 0.14 (0.00-0.50) K/uL Baso # (Auto) 0.01 (0.00-0.30) K/uL Abs Immat Gran (auto) 0.11 (0.00-0.30) K/uL Imm/Tot Granulo (auto) 1.2 % ESR 100 H (2-15) mm/hr Sodium 133 L (135-149) mmol/L Potassium 4.9 (3.6-5.1) mmol/L Chloride 103 (96-114) mmol/L Carbon Dioxide 22 (20-32) mmol/L Anion Gap 8 (7-15) mEq/L BUN 34 H (7-30) mg/dL Creatinine 2.0 H (0.5-1.5) mg/dL Estimated Creat Clear 35.03 Estimated GFR 34 ml/min Glucose 130 H (60-115) mg/dL Lactate 2.1 H (0.5-1.9) mmol/L Calcium 9.1 (8.4-10.6) mg/dL Total Bilirubin 0.7 (0.1-1.5) mg/dL Direct Bilirubin 0.5 (0.0-0.5) mg/dL AST 35 (12-35) U/L ALT 22 (4-50) U/L Alkaline Phosphatase 111 (40-150) U/L Troponin I < 0.01 (0.01-0.04) ng/mL C-Reactive Protein 13.5 H (0.5-1.0) mg/dL NT-Pro-B Natriuret Pep 464 H (See Note) pg/mL Total Protein 6.5 (6.0-8.3) g/dL Albumin 3.3 (3.3-5.0) g/dL Lipase 45 (23-300) U/L Procalcitonin 0.36 (<0.50) ng/mL Urine Color Dickens A (Yellow) Urine Appearance Cloudy A (Clear) Urine pH 5.0 (5.0-8.5) Ur Specific [place] 1.025 (1.000-1.030) Urine Protein 1+ A (Negative) Urine Glucose (UA) Negative (Negative) Urine Ketones Negative (Negative) Urine Blood Trace-intact A (Negative) Urine Nitrite Negative (Negative) Urine Bilirubin 1+ A (Negative) Urine Urobilinogen 0.2 (0.2-1.0) Ur Leukocyte Esterase Negative (Negative) Urine RBC 5-10 A (0-2) Urine WBC 2-5 (0-5) Ur Squamous Epith Cells Few (None-Few) Other Sediment (None) Urine Bacteria Few A (None) SARS-CoV-2 (PCR) Negative SARS-CoV-2 (Negative) Monoscreen Negative (Negative) Influenza Type A (PCR) Negative PCR FLU A (Negative) Influenza Type B (PCR) Negative PCR FLU B (Negative) ECG Data Attestation: I personally reviewed and interpreted this ECG as follows: Discharge Plan Discharge Clinical Impression: Nausea & vomiting, Dehydration, Acute renal failure Patient Disposition: Home, Self-Care Condition: Stable Additional Instructions: Patient presented with acute dehydration and changes in renal function because of this. He was treated with 1 L of normal saline and IV Zofran. He had no vomiting while he was in the ED. recommend the patient stay better hydrated with frequent access to fluid throughout the day. Use Zofran as needed/as directed for nausea. Recommend repeat lab work to recheck his kidney function early this week with his primary care provider. Prescriptions: No Action bacitracin 500 unit/gram ointment 1 applic topical BID sennosides-docusate sodium [Senna Plus] 8.6-50 mg tablet 2 tab-cap PO DAILY Patient Comments: plus prn baclofen 10 mg tablet 10 mg PO BID Eliquis 5 mg tablet 5 mg PO BID atorvastatin 80 mg tablet 80 mg PO HS latanoprost 0.005 % drops 1 drp ophthalmic (eye) HS Rx Instructions: BOTH EYES furosemide 20 mg tablet 20 mg PO QPM ondansetron HCl 4 mg tablet 4 mg PO Q6H PRN diclofenac sodium 1 % gel 2 g topical BID PRN Ear Wax Removal Kit 6.5 % drops 5 drp otic (ear) Q7D Patient Comments: every Monday allopurinol 100 mg Tablet 100 mg PO DAILY Qty: 30 0RF clotrimazole 1 % cream 1 applic topical BID sennosides [senna] 8.6 mg tablet 17.2 mg PO DAILY sodium chloride 0.9 % (flush) [BD PosiFlush Normal Saline 0.9] Syringe Patient Comments: [NO ORIGINAL SIG] ondansetron HCl 4 mg tablet 4 mg PO Q6H Qty: 20 0RF furosemide 40 mg tablet 40 mg PO DAILY potassium chloride 10 mEq capsule, extended release 10 meq PO BIDWM metoprolol succinate 100 mg tablet extended release 24 hr 100 mg PO DAILY acetaminophen 500 mg tablet 1,000 mg PO TID pantoprazole 40 mg tablet,delayed release (DR/EC) 40 mg PO BID calcium carbonate [Zachary-Gest Antacid] 200 mg calcium (500 mg) tablet,chewable 400 mg PO BID polyethylene glycol 3350 17 gram/dose powder 17 g PO DAILY Patient Comments: plus prn lisinopril 40 mg tablet 40 mg PO DAILY cholecalciferol (vitamin D3) [Vitamin D3] 25 mcg (1,000 unit) tablet 25 mcg PO DAILY acetic acid 0.25 % solution See Rx Instructions .ROUTE BID Patient Comments: [NO ORIGINAL SIG] Rx Instructions: 1 APPLICATION twice a day AND PRN TO BUTTOCK WOUND oxycodone 5 mg tablet 5 mg PO Q6H PRN ferrous sulfate 325 mg (65 mg iron) Tablet 325 mg PO Q48H metformin 500 mg Tablet Extended Release 24 Hr 1,000 mg PO QPM Follow Up/Referrals: Bijan Crawford MD [Primary Care Provider, Family Practice] Stand Alone Forms: MyHealth Info Instructions
[2025-02-16 11:50] LABS: Lactate* 2.1 mmol/L (0.5-1.9)
[2025-02-16 11:58] LABS: Hematocrit 32.2 % (37.0-53.0); Hemoglobin* 10.0 gm/dL (13.5-17.5); Immature Granulocytes Abs Auto 0.11 K/uL (0.00-0.30); Immature Granulocytes Pct Auto 1.2 %; Lymphocytes Absolute Auto 1.10 K/uL (0.90-2.90); Mean Corpuscular HGB Conc 31 gm/dL (32-36); Mean Corpuscular Hemoglobin 26 pg (26-34); Mean Corpuscular Volume 83 fL (80-100); Mono Screen* Negative (Negative); RDW Coefficient of Variation % 18.3 % (11.5-15.5); Red Blood Count 3.88 m/uL (4.30-5.90); Slide Review Reflex No; White Blood Count* 9.20 K/uL (4.50-11.00)
[2025-02-16 12:10] LABS: Albumin* 3.3 g/dL (3.3-5.0); Chloride* 103 mmol/L (96-114); Sodium* 133 mmol/L (135-149)
[2025-02-16 12:11] LABS: Potassium* 4.9 mmol/L (3.6-5.1)
[2025-02-16 12:13] LABS: Alanine Aminotransferase* 22 U/L (4-50); Alkaline Phosphatase* 111 U/L (40-150); Anion Gap 8 mEq/L (7-15); Aspartate Amino Transferase* 35 U/L (12-35); Bilirubin Direct* 0.5 mg/dL (0.0-0.5); Bilirubin Total* 0.7 mg/dL (0.1-1.5); Blood Urea Nitrogen* 34 mg/dL (7-30); Carbon Dioxide* 22 mmol/L (20-32); Creatinine* 2.0 mg/dL (0.5-1.5); Est. Creatinine Clearance* 35.03; Estimated Glomerular Filt Rate 34 ml/min; Total Protein* 6.5 g/dL (6.0-8.3)
[2025-02-16 12:14] LABS: Calcium* 9.1 mg/dL (8.4-10.6); Glucose* 130 mg/dL (60-115)
[2025-02-16 12:23] LABS: Appearance Urine Cloudy (Clear)
[2025-02-16 12:26] LABS: NT Pro B Type NatriureticPept* 464 pg/mL (See Note)
[2025-02-16 12:30] LABS: Procalcitonin* 0.36 ng/mL (<0.50)
[2025-02-16 12:34] LABS: Erythrocyte SedimentationRate* 100 mm/hr (2-15)
[2025-02-16 12:41] LABS: PCR FLU A Negative PCR FLU A (Negative); PCR FLU B Negative PCR FLU B (Negative); SARS PCR* Negative SARS-CoV-2 (Negative)
[2025-02-16] MEDS: ONDANSETRON 2 MG/ML inj 4 MG IVP (13:24)
[2025-02-16] MEDS: 0.9 % SODIUM CHLORIDE 500 ML 500 ML IV (13:25)
--- NOTE | 2025-02-16 14:00 | ED.NURSE ---
Pt being discharged from ER at this time. This nurse called [facility] and gave report and pt will be returning to [facility] via ambulance ride home.
== END 2025-02-16 15:01 | disposition home or self-care (01) ==
PROVIDERS: Emergency Provider Family Medicine; PCP Family Medicine
DX: R11.2 Nausea with vomiting, unspecified (principal); E86.0 Dehydration; N17.9 Acute kidney failure, unspecified
CPT/HCPCS: 36415; 80048; 80076; 81001; 83605; 83690; 83880; 84145; 84484; 85025; 85651; 86140; 86308; 87086; 87631; 93005; 94761; 96374; 99284; J2405; J7030

== ENCOUNTER 2025-02-16 14:43 | Outpatient (CLI) | payer MEDICARE, SELFPAY | END 2025-02-16 14:44 | disposition home or self-care (01) | LOC: AMB 03-03 08:41 | PROVIDERS: PCP Family Medicine; Visit Provider Family Medicine | DX: R11.2 Nausea with vomiting, unspecified (principal); E86.0 Dehydration; N17.9 Acute kidney failure, unspecified | CPT/HCPCS: A0425; A0428 ==

== ENCOUNTER 2025-02-20 13:30 | Outpatient (RCR) | payer MEDICARE, SELFPAY | END 2025-02-20 23:59 | disposition home or self-care (01) | LOC: WOUND 13:30 | PROVIDERS: PCP Family Medicine; Visit Provider Physician Assistant Surgical | DX: M86.68 Other chronic osteomyelitis, other site (principal); L89.324 Pressure ulcer of left buttock, stage 4; L89.150 Pressure ulcer of sacral region, unstageable; G82.20 Paraplegia, unspecified; G35 Multiple sclerosis; Z99.3 Dependence on wheelchair | CPT/HCPCS: G0277 ==

== ENCOUNTER 2025-02-21 11:50 | Outpatient (CLI) | payer MEDICARE, SELFPAY | END 2025-02-21 11:51 | disposition home or self-care (01) | LOC: AMB 02-27 10:25 | PROVIDERS: PCP Family Medicine; Visit Provider Family Medicine | DX: R41.82 Altered mental status, unspecified (principal); R47.81 Slurred speech; R10.9 Unspecified abdominal pain | CPT/HCPCS: A0425; A0433 ==

== ENCOUNTER 2025-02-21 12:30 | Emergency (ER) | payer MEDICARE, SELFPAY ==
--- OUTSIDE RECORDS SUMMARY | 2025-01-23 17:26 | XMS_ITS | Encounter Summary ---
Author Organization [facility] Address [address] [place] [address] Care Team Providers Care Chemical Unit Operator Name Role Phone Jeff Reyes M.D. 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 [address] [place] [phone] Phone: tel: fax: [facility] Referral ID Status Reason Start Date Expiration Date V isits Requested Visits Authorized [id number] Authorized 01/23/2025 07/25/2026 1 1 Reason for Visit * Reason Comments Altered Mental Status Encounter Details Date Type Department Care Team (Late st Contact Info) Description 01/23/2025 5:26 PM CDT - 01/24/2025 12:38 AM CDT Emergency [facility] Emergency Department [address] [place] [phone] Ollie Walters M.D. 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 threatened to shut off services in your [...] your living situation today? [facility] 11/08/2024 Education Answer Date Recorded What is the highest level of school you have completed or the highest degree you have received? 12th grade 10/18/2022 Sex and Gender Information Value Date Recorded Sex Assigned at Male 06/26/2018 4:20 PM [employer] Legal Sex Male 3:33 AM [employer] Gender Identity Not on file Sexual Orientation [...] sent through Care Everywhere. * Pressure Injury (Turkish) * Abdominal Pain Adult [id number] (Turkish) documented in this encounter Medications at Time [...] arrange return transportation to patient's facility - [facility] in [facility]. Nursing reports patient is alert and oriented, [...] his transportation. Social work offers information for [facility] transportation resources and discusses senior linkage line, offering formal referral. Patient expresses doubt that the transportation resources offered would be able to support patient's transportation needs, but does accept the information provided. Patient declines referral to the Senior Linkage Line. Social work speak with patient's son - Homero Ramirez, phone: [phone] - regarding patient situation and transportation needs. [...] would like further conversation with the ED retail consultant to discuss the medical decision to dismiss the patient, which he declines. Social work offers additional supportive options, and Homero accepts the [facility] reporting line, and the Office of [...] of patient and family's concerns. The ED retail consultant reviews with ED social work that [...] with transportation back to his facility in [facility]. Social work arranged transportation with [employer], phone: [phone]. ASSESSMENT / PLAN ASSESSMENT Transport resources were explored and arranged to assist with the patient's needs. The patient appears to have insight into their needs at this time. PLAN 1. [employer], phone: [phone] to provide return transportation to [facility] in [facility]. 2. Please contact social work if further supportive or dismissal needs arise. The patient is being prepared to discharge on 01/24/25 at 00:35 if medically ready for transfer. Contact Social Work if time needs to be changed. Transportation will be provided by [employer], [employer] ([phone] ). Transportation will be paid for by Other. Darius Tate, Moe 01/23/2025 documented in this encounter Consult Notes * Bebeto Casper M.D. - 01/23/2025 10:21 PM CDT ---------Miscellaneous [facility] ED consult Service Note-------- Mr. Ren Ramirez a chart review was completed. The patient was not seen or evaluated by the [facility] ED Consult Team. Chart review and discussion with Emergency Department provider Ollie Walters M.D.. Bartolomeshelly was asked to arrange close PCP follow up. Will ask our DOS for help on Monday. -----All results and laboratory testing will be followed by the emergency department team. Please ensure results are forwarded to them. We appreciate the collaborative care with the [facility] ED in the management of Mr. Ren Ramirez. If any questions or concerns, feel free to page [phone] [facility] ED Consult Team between the hours [...] done can follow outpatient. - discussed with [place] who are working on getting the patient [...] physician. We appreciate the help of the [place] team in arranging a primary care visit [...] presents to the ED via EMS from [address] [place] [address] [facility] for [facility]. Has history of [...] facility. ED Course as of 01/24/25 0013 [facility] Jan 23, [id number] CBC without Differential [...] AM CDT Chung Mehta M.D. Resident 01/23/25 [id number] Chung Mehta M.D. Resident 01/24/25 001 * [...] history of MS. Dena Arshad R.N. 01/23/25 2231 documented in this encounter Plan of Treatment Upcoming Encounters Date Type Department Care Team (Late st Contact Info) Description 03/04/2025 9:00 AM CDT Appointment Department of Radiology in [place], [place] [address] [phone] Pablo Vo M.D. [address] [place] [address] Scheduled Referrals Name Type Priority Associated Diagnoses [...] ORDERABLES Fin al Result Performing Organization Address City/[facility]/ZIP Co de Phone Number [facility] [address] [place] [address] * pH, Urine (01/23/2025 8:37 PM CDT) pH, U 5.4 4.5 - 8.0 01/23/2025 9:0 3 PM CDT DT Urine 01/23/2025 8:37 PM CDT 01/23/2025 8:49 PM CDT Chung Mehta M.D. LAB URINE ORDERABLES Fin al Result Performing Organization Address City/[facility] Co de Phone Number [facility] [address] 200 [place] [address] * Osmolality, Urine (01/23/2025 8:37 PM CDT) Osmolality, U 409 150 - 1150 mOsm/kg 01/23/2025 9:03 PM CDT DT Urine 01/23/2025 8:37 PM CDT 01/23/2025 8:49 PM CDT Chung Mehta M.D. LAB URINE ORDERABLES Fin al Result [facility] [address] [place] [address], [facility] [address] [place] [address] * Microscopic Automated (01/23/2025 8:37 PM CDT) Microscopy Normal 01/23/2025 8:57 PM CDT DTL RBC <3 <3 /hpf 01/23/2025 8:57 PM CDT DTL WBC 1-3 /hpf 01/23/2025 8:57 PM CDT DTL Comment: ----REFERENCE VALUE---- <4 (Males) <11 (Females) Casts, Hyaline 11-20 /lpf 01/23/2025 8:57 PM CDT DTL Urine 01/23/2025 8:37 PM CDT 01/23/2025 8:49 PM CDT Chung Mehta M.D. LAB URINE ORDERABLES Brenden lopes Result Performing Organization Address [facility]/State/[facility] Co de Phone Number [place] [address] [place] [address], [facility] [place]TM[place] [address] [place] [address] * Urinalysis, with Microscopic: Urine, Catheter (01/23/2025 [...] M.D. LAB URINE ORDERABLES Fin al Result [facility] [address] [place] [address], [facility] [address] [place] [address] * (ABNORMAL) Sedimentation Rate (01/23/2025 8:36 PM CDT) Sedimentation Rate, B 109(H) 3 - 28 mm/h 01/23/2025 9:29 PM CDT DTL Blood (Blood, Venous) 01/23/2025 8:36 PM CDT 01/23/2025 8:47 PM CDT Chung Mehta M.D. LAB BLOOD ADD-ON Final R esult Performing Organization Address City/[facility]/ZIP Co de Phone Number [facility] [address] [place], [place] [phone] [place] [address] 200 [place] [address] * (ABNORMAL) CRP (C-Reactive Protein) (01/23/2025 8:36 PM CDT) Pathologist [facility] C-Reactive Protein (CRP), S 124.8(H) <5.0 mg/L 01/23/2025 9:28 PM CDT DT Blood (Blood, Venous) 01/23/2025 8:36 PM CDT 01/23/2025 9:01 PM CDT Chung Mehta M.D. LAB BLOOD ADD-ON Final R esult Performing Organization Address City/[facility]/ZIP Co de Phone Number [facility] [address] [place] [address], [facility] 200 [place] [address] * Bacteria / Zenobia Culture, Blood #2 (01/23/2025 8:34 PM CDT) Pathologist [facility] Bacteria/Vannessa da Culture, Blood No growth after 5 days of incubation. 01/28/2025 9:02 PM CDT DTL Blood (Blood, Peripheral Draw) 01/23/2025 8:34 PM CDT 01/23/2025 8:50 PM CDT Comment:Specimen Source Site : Blood Chung Mehta M.D. LAB MICROBIOLOGY - GENER AL ORDERABLES Final Result Performing Organization Address City/[facility]/ZIP Co de Phone Number [facility] [address] DTFormerly named [facility] 200 [place] [address] * Lactate for Sepsis with Reflex (01/23/2025 8:32 PM CDT) Pathologist [facility] Lactate, P 1.3 0.5 - 2.2 mmol/L 01/23/2025 8:59 PM CDT [facility] Blood (Blood, Venous) 01/23/2025 8:32 PM CDT 01/23/2025 8:44 PM CDT Chung Mehta M.D. LAB BLOOD NON ADD-ON Fin al Result Performing Organization Address [facility] Co de Phone Number [facility] [address] [place] [address] * Bacteria / Zenobia Culture, Blood #1 (01/23/2025 8:32 PM CDT) Pathologist [facility] Bacteria/Vannessa da Culture, Blood No growth after 5 days of incubation. 01/28/2025 9:02 PM CDT DTL Blood (Blood, Peripheral Draw) 01/23/2025 8:32 PM CDT 01/23/2025 8:49 PM CDT Comment:Specimen Source Site : Blood us Chung Mehta M.D. LAB MICROBIOLOGY - GENER AL ORDERABLES Final Result Performing Organization Address City/[facility]/ZIP Co de Phone Number [facility] 200 [place] [address], [facility] DTL [facility] 200 [place] [address] * CT Abdomen Pelvis with IV Contrast [...] - 2.2 mmol/L 01/23/2025 7:05 PM CDT STMA Blood (Blood, Venous) 01/23/2025 6:55 PM CDT 01/23/2025 7:02 PM CDT Ollie Walters M.D. LAB BLOOD NON ADD-ON Final Res ult [facility] [address] [facility] [address] [place] [address] * Lipase (01/23/2025 6:55 PM CDT) Lipase, S 16 13 - 60 U/L 01/23/2025 7: 42 PM CDT DTL Blood (Blood, Venous) 01/23/2025 6:55 PM CDT 01/23/2025 7:25 PM CDT us Ollie Boggust M.D. LAB BLOOD ADD-ON Final Result [facility] [address] [place] [address], [facility] DTL [facility] [address] [place] [address] * (ABNORMAL) Basic Metabolic Panel (01/23/2025 6:55 [...] 6:55 PM CDT 01/23/2025 7:02 PM CDT Ollie Walters M.D. LAB BLOOD ADD-ON Final Result [facility] [address] [place] [address], [facility] STMA [facility] [address] [place] [address] * (ABNORMAL) CBC without Differential (01/23/2025 6:55 [...] Walters M.D. LAB BLOOD ADD-ON Final Result [facility] [address] [place] [address], [facility] 200 [place] [address] * ECG 12 Lead (01/23/2025 5:18 PM CDT) Ventricular Rate ECG/Min 79 BPM MUSE [place] Interval 210 ms MUSE QRSD Interval 96 ms MUSE QT Interval 370 ms MUSE QTC Interval 424 ms MUSE P [place] 42 degrees MUSE R [place] -12 degrees MUSE T Wave [place] 47 degrees MUSE 01/23/2025 5:18 PM CDT [...] intravenous, Once in imaging, contrast, Starting on Mon01/23/25 at 1920, For 1 dose, Imaging Protocol Orders, Dose per Radiant Medication Guidelines Given 01/23/2025 7:26 PM CDT 200 mL sodium chloride (PF) 0.9 % injection 1-100 mL 1-100 mL, intravenous, Once, On Mon01/23/25 at 1921, For 1 dose, Imaging Protocol [...] Guidelines 192 (Given - Provider: Russ Griffin R.N.) documented in this encounter Additional Health Concerns Assessment Noted Time PHQ-9 Depression Total Score: 10 018 11:00 AM CDT documented as of this encounter Care Teams Chemical Unit Operator Relationship Specialty Start Date End Date Jeff Reyes M.D. [address] [place] [phone] PCP - General 03/14/24 documented as of this encounter
--- OUTSIDE RECORDS SUMMARY | 2025-02-04 12:11 | XMS_ITS | Encounter Summary ---
Author Organization [facility] Address [address] [place] [address] Care Team Providers Care Biofuels Processing Technician Name Role Phone Jeff Reyes M.D. Primary Care Provider Reason for Referral * Outpatient (Routine) - Authorized Specialty Diagnoses / Procedures Referred By Contac t Referred To Contact Radiology Diagnoses Cholecystitis Procedures IR Percutaneous Cholecystostomy Tube Exchange Anuel Nunn M.D. [facility] [place] [address] Phone: tel: fax: [facility] Referral ID Status Reason Start Date Expiration Date V isits Requested Visits Authorized [id number] Authorized 02/05/2025 05/08/2026 1 1 * Outpatient (Routine) - Authorized Specialty Diagnoses / Procedures Referred By Contelly t Referred To Contact General Surgery Diagnoses Cholecystitis Anuel Nunn M.D. [address] [place] [address] Phone: tel: fax: [facility] Referral ID Status Reason Start Date Expiration Date Visits Requested Visits Authorized [id number] Authorized Specialty Services Required 02/04/2025 08/06/2026 1 1 * Outpatient (Routine) - Closed Specialty Diagnoses / Procedures Referred By Jono donohue Referred To Contact Radiology Diagnoses Cholecystitis Procedures IR Percutaneous Cholecystostomy Tube Exchange Anuel Nunn M.D. [address] [place] [phone] Phone: tel: fax: [facility] Region Referral ID Status Reason Start Date Expiration Date Visits Re quested Visits Authorized [id number] Closed 10/24/2024 01/24/2026 1 1 Reason for Visit * Outpatient (Routine) - Closed Specialty Diagnoses / Procedures Referred By Jono donohue Referred To Contact Radiology Diagnoses Cholecystitis Procedures IR Percutaneous Cholecystostomy Tube Exchange Anuel Nunn M.D. [address] [place] [phone] Phone: tel: fax: [facility] Referral ID Status Reason Start Date Expiration Date Visits Re quested Visits Authorized [id number] Closed 10/24/2024 01/24/2026 1 1 Encounter Details Date Type Department Care Team (Latest Contact Info) Description 02/04/2025 12:11 PM CDT - 02/04/2025 1:42 PM CDT Hospital Encounter Department of Radiology in [address] [phone] Anuel Nunn M.D. [address] [place] [phone] Cholecystitis Discharge Disposition: Home or Self Care Social History Tobacco Use Types Packs/Day Years Used Date Smoking Tobacco: Former Cigarettes Q uit: 1977 Passive Smoke Exposure: Never Alcohol Use Standard Drinks/Week Comments Not Currently 1 (1 standard drink = 0.6 oz pur e alcohol) [facility] Utilities Answer Date Recorded In the past 12 months has [employer], gas, oil, or water [employer] threatened to shut off services in your [...] your living situation today? I have a [facility] place to live 11/08/2024 Education Answer Date Recorded What is the highest level of school you have completed or the highest degree you have received? 12th grade 10/18/2022 Sex and Gender Information Value Date Recorded Sex Assigned at Male 06/26/2018 4:20 PM ENERGY SCHEDULER Legal Sex Male 3:33 AM ENERGY SCHEDULER Gender Identity Not on file Sexual Orientation [...] constipation. 07/04/2018 documented as of this encounter Procedure Notes * Anuel Nunn M.D. - 02/04/2025 1:15 PM CDT BRIEF POST PROCEDURE NOTE Vascular & Interventional Radiology PROCEDURE Routine cholecystostomy tube exchange PRE-PROCEDURE DIAGNOSIS Cholecystitis and intermittent cystic duct occlusion POST-PROCEDURE DIAGNOSIS Same. PROCEDURE DETAILS / FINDINGS Routine 14 Zimbabwean 25 cm cholecystostomy tube exchange. Please see Radiology Report for full details. [employer] AIRSPACE CONTROL OFFICER Ollie Nunn M.D. SPECIMENS REMOVED None. ESTIMATED [...] AM CDT Appointment Department of Radiology in [place], [place] [address] [place] [address] Pablo Vo M.D. [address] [place] [address] Scheduled Orders Name Type Priority Associated Diagnoses [...] male with history of cholecystitis requiring 14 Zimbabwean cholecystostomy catheter, routine 3 month exchange COMPARISON: [...] medications. Patient education provided by a care pulp mill team leader. Patient was ready to learn with no apparent learning barriers were identified. Post-procedure care explained; patient expressed understanding of the content. PROCEDURE DETAILS: Sedation: None. Sedation time: Not applicable. Estimated Blood Loss: Less than 10 mL. TECHNIQUE: Imaging guidance for catheter exchange: Fluoroscopy with permanent image storage Access side: Right lateral abdomen intercostal transhepatic Catheter: 14 Zimbabwean 25 cm multipurpose pigtail drain Technique: The indwelling catheter was injected with contrast. A guidewire was inserted through the catheter, and the catheter was exchanged for a new 14 Zimbabwean catheter. Contrast was injected confirming the location [...] medications. Patient education provided by a care pulp mill team leader. Patient was ready to learn withno apparent learning barriers were identified. Post-procedure careexplained; patient expressed understanding of the content. PROCEDURE DETAILS: Sedation: None. Sedation time: Not applicable. Estimated Blood Loss: Less than 10 mL. TECHNIQUE: Imaging guidance for catheter exchange: Fluoroscopy with permanent imagestorage Access side: Right lateral abdomen intercostal transhepatic Catheter: 14 Zimbabwean 25 cm multipurpose pigtail drain Technique: The indwelling catheter was injected with contrast. A guidewirewas inserted through the catheter, and the catheter was exchanged for anew 14 Zimbabwean catheter. Contrast was injected confirming the location [...] catheter. Cystic duct is patenton today's exam. Anuel Nunn M.D. IMG IR PROCEDURES Final Resul t documented in this encounter Visit Diagnoses Diagnosis Cholecystitis documented in this encounter Administered Medications Inactive Administered Medications - up to 3 most recent administrations Medication Order MAR Action Action Date Dose Rate Site iohexoL 350 mg iodine/mL solution (Omnipaque) As needed, Starting on Mon02/04/25 at 1322, Intra-Op Given 02/04/2025 1:22 PM CDT 10 mL lidocaine-sodium bicarbonate (buffered) 0.9%-0.84% injection infiltration, As needed, Starting on Mon02/04/25 at 1311, Intra-Op Given 02/04/2025 1:11 PM CDT 7 mL Abdominal Tissue documented in this encounter Active and Recently Administered Medications Times are shown in CDT. PRN Medication Order 02/02/2025 02/03/2025 02/04/2025 iohexoL 350 mg iodine/mL solution (Omnipaque) (COMPLETED) As needed, Starting on Mon02/04/25 at 1322, Intra-Op 1322 (Given - Provid er: Anuel Nunn M.D.) lidocaine-sodium bicarbonate (buffered) 0.9%-0.84% injection (COMPLETED) infiltration, As needed, Starting on Mon02/04/25 at 1311, Intra-Op 1311 (Given - Provid er: Anuel Nunn M.D.) documented in this encounter Additional Health Concerns Assessment Noted Time PHQ-9 Depression Total Score: 10 018 11:00 AM CDT documented as of this encounter Care Teams Biofuels Processing Technician Relationship Specialty Start Date End Date Jeff Reyes M.D. [address] [place] [phone] PCP - General 03/14/24 documented as of this encounter
--- OUTSIDE RECORDS SUMMARY | 2025-02-19 15:00 | XMS_ITS | Encounter Summary ---
Author Organization [place] Address [facility] [place] [address] Care Team Providers Care Employee Communications Intern Name Role Phone Bijan Crawford Primary Care Provider [phone] Reason for Referral * Consultation (Priority: 1-2 Weeks) - Pending Review Specialty Diagnoses / Procedures Referred By Jono donohue Referred To Contact Plastic Surgery Diagnoses Pressure ulcer Rl Evans MD [address] [facility] [address] [place] [address] Phone: tel: fax: Referral ID Status Reason Start Date Expiration Date V isits Requested Visits Authorized [id number] Pending Review 02/19/2025 02/19/2026 1 1 Question Answer Is the reason for referral related to a cancer diagnosis or breast reconstruction? No My Clinical Question Is: He has sacral decubitus ulcer. Pls assess for management options. Thanks. Scheduling Instructions: [facility] will call you to coordinate your care as prescribed by your provider. If you don't hear from a account development representative within 2 business days, please call . Comments Please be aware that coverage of these services is subject to the terms and limitations of your health insurance plan. Call member services at your health plan with any benefit or coverage questions. [facility] will call you to coordinate your care as prescribed by your provider. If you don't hear from a account development representative within 2 business days, please call . Reason for Visit * Reason Comments Consult * Consultation (Routine) - Pending Review Specialty Diagnoses / Procedures Referred By Jono donohue Referred To Contact Infectious Diseases Diagnoses Pressure ulcer Stella Mejia MD [address] [place] [address] Phone: tel: fax: Referral ID Status Reason Start Date Expiration Date V isits Requested Visits Authorized [id number] Pending Review 01/16/2025 01/16/2026 1 1 Encounter Details Date Type Department Care Team ([facility] st Contact Info) Description 02/19/2025 3:00 PM CDT Office Visit [facility] Infectious Disease [address] [place] [address] Rl Evans MD 420 [facility] [address] [place] [address] Pressure injury of left buttock, stage 4 (H) Social History Tobacco Use Types Packs/Day Years Used Date Smoking Tobacco: Former Cigarettes Q uit: 07/24/1971 Smokeless Tobacco: Never Tobacco Cessation:Counseling Given: Not Answered Sex and Gender Information Value Date Recorded Sex Assigned at Not on file 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 per pt Height - - Body Mass Index - - documented in this encounter Progress Notes * Rl Evans MD - 02/19/2025 3:00 PM CDT Images from the original note were not included. 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 Management of this condition requires a multidisciplinary approach, beginning with appropriate offloading. I have referred him to our plastic surgery colleagues to evaluate surgical options. Treatment of osteomyelitis in this setting must be integrated into a comprehensive wound care plan. Without a ddressing the underlying issue of the pressure ulcer, antibiotic therapy alone is unlikely to be effective. Regarding his frequent emergency room visits, the symptoms he reports appear vague and may not be directly related to his sacral ulcer. I explained to him that superficial skin and soft tissue infections can occur around chronic ulcers and are typically managed with short courses of antibiotics. I provided my contact information so his wound care team can reach out directly if there are local changes to the wound. Wound cultures should be obtained to guide any necessary antibiotic therapy. He should continue with routine local wound care. We remain available to provide antibiotic management recommendations once a definitive surgical plan--such as flap closure--is in place. It seems more reasonable to address his cholecystectomy first. They will be going to [place] for his surgeon. PLAN: Plastic surgery referral. Close monitoring with wound care provider. 65 minutes spent by me on the date of the encounter doing chart review, history and exam, documentation and further activities per the note History of Present Illness Pertinent history obtain from: patient and patient's child(michelle) Ren Ramirez is a 75 year old male who had a cholecysitis and DVT/PE diagnosed during an admission at [facility] Aug 08 to Aug 16, 2024. He underwent percutaneous cholecystostomy which he still has until now. They said that they have been struggling with sacral ulcer since October 2023. They could not say when it started exactly. The first mention in CT imaging is in Jan 23, 2025. Since then he has been to the local ED for some vague presentation of feeling unwell. He said that he has vomiting due to largepills and they were told that he had low blood pressure during those episodes but the notes from EDand rate reviewer notes that his BP is normal. Physical Exam Vital signs: BP 97/61 (BP Location: Left arm, Patient Position: Sitting, Cuff Size: Adult Large) Pulse 73 Wt 113.4 kg (250 lb) On exam, he has clear breath sounds and no audible murmurs. His abdomen is soft and non-tender, with a right upper quadrant drain in place. I was unable to assess his buttocks due to positioning limitations in the clinic setting. Data Laboratory data and imaging listed below was reviewed prior to this encounter. Cr, ALT, AST normal documented in this encounter Plan of Treatment Scheduled Referrals Name Type Priority Associated Diagnoses Orde r Schedule Adult Plastic Surgery Terra [place]ta Mold Maker Referral Referral Priority: 1-2 Weeks Pressure injury of left buttock, stage 4 (H) Expected: 02/19/2025 (Approximate), Expires: 02/19/2026 documented as of this encounter Visit Diagnoses Diagnosis Pressure injury of left buttock, stage 4 (H) documented in this encounter Care Teams Employee Communications Intern Relationship Specialty Start Date End Date Bijan Crawford [address] [place] [address] PCP - General Family Medicine 01/20/25 documented as of this encounter
[2025-02-21] VITALS (67 sets, daily range): BP systolic 84–130; BP diastolic 31–87; PULSE 79–111; RESP 9–22; TEMP 35.6–35.8; O2SAT 89–99; BMI 31.7
--- NOTE | 2025-02-21 | CRLHL7_ITS ---
For Patients: As a result of the Century Cures Act, medical imaging exams and procedure reports are released immediately into your electronic medical record. You may view this report before your referring provider. If you have questions, please contact your health care provider. INDICATION: APHASIA, SLURRED SPEECH, AMS TECHNIQUE: CT of the head was performed without IV contrast. COMPARISON: 08/20/2024. FINDINGS: Parenchyma: No acute hemorrhage, infarction, or mass. Moderate confluent periventricular white matter hypoattenuation is nonspecific and is favored to represent chronic small vessel ischemic disease. Ventricles and extra-axial spaces: Moderate involutional changes. Visualized paranasal sinuses: Clear. Mastoid air cells: Partially opacified on the right. Bones: No focal abnormality. Additional comment: None. IMPRESSION: No acute hemorrhage or large territory infarct. Findings discussed with Dr. Sanz at 12:52 p.m. on 02/21/2025. Please note that all CT scans at this facility use dose modulation, iterative reconstruction, and/or weight-based dosing when appropriate to reduce radiation dose to as low as reasonably achievable. Dictated by Walt Russell MD @ 02/21/2025 12:53:43 PM (Electronically Signed)
--- NOTE | 2025-02-21 12:43 | ED.GENADULT ---
HPI - General Adult General Date Seen: 02/21/25 Chief complaint: Unspecified Complaint, Adult Stated complaint: CVA Time Seen by Provider: 02/21/25 12:41 History of Present Illness HPI narrative: History is limited by patient altered mental status. History from paramedics who brought him in is that he 75 years old. He lives in [address] [place] [address]. 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 They were called by his fdc staff today. Report is that when they came to check on him at 7:00 a.m. this morning he seemed to be slurring his speech. When they came to check him later he is now moaning and nonverbal. He seems weak. He seems to be in pain. Because of the aphasia, EMS activated pre-hospital stroke team activation, however they were not convinced this is a stroke. He does seem to be in a lot of discomfort and they administered a total of 150 mcg of fentanyl EN route to. Blood sugar was 191. Blood pressure was elevated. Other than moaning and not talking, they do not detect any other focal deficits like facial droop. He has generalized weakness and is not following commands. He has multiple recent ER visits and hospitalizations. I saw him in November and he did have some somewhat altered mental status at that time. It appeared this though he was septic from buttock cellulitis from his decubitus ulcer. He went to the OR for debridement and was hospitalized for IV antibiotics This month he has been seen in the ER on 01/28 for nausea and vomiting, 02/05 for chest pain (workup for chest pain reassuring. No PE. Inflammatory markers were abnormal. MRI of his pelvis showed osteomyelitis and myositis. Attempted transfer to [facility] but they were on divert so patient was transferred to [facility]). Was hospitalized until 02/07. General surgery felt there were known sites needing new debridement. 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 Discharged with 1 week Augmentin and Bactrim. then to [facility] on 02/16 for nausea and vomiting with weakness. During that visit he was still on the Augmentin and Bactrim. He was planning to start hyperbaric oxygen. Temperature was 97?. Labs showed sodium 133, creatinine 2, BUN 34, lactic 2.1 UA showed a little bit of protein and bilirubin with some red cells. White count was 9.2, hemoglobin 10.0, platelet count 233. LFTs were normal. Lipase was normal. Pro callus normal. COVID and influenza were negative. Received IV fluids. Related Data Home Medications ?Medication ?Instructions ?Recorded ?Confirmed calcium carbonate (Zachary-Gest 400 mg PO BID PRN 08/07/24 02/21/25 Antacid) cholecalciferol (vitamin D3) 25 25 mcg PO DAILY 08/07/24 02/21/25 mcg (1,000 unit) tablet (Vitamin D3) furosemide 40 mg tablet 40 mg PO DAILY 08/07/24 02/21/25 lisinopril 40 mg tablet 40 mg PO DAILY 08/07/24 02/21/25 metoprolol succinate 100 mg 100 mg PO DAILY 08/07/24 02/21/25 tablet,extended release 24 hr pantoprazole 40 mg tablet,delayed 40 mg PO BID 08/07/24 02/21/25 release polyethylene glycol 3350 17 17 g PO DAILY 08/07/24 02/21/25 gram/dose oral powder apixaban 5 mg tablet (Eliquis) 5 mg PO BID 11/16/24 02/21/25 atorvastatin 80 mg tablet 80 mg PO HS 11/16/24 02/21/25 bacitracin 500 unit/gram topical 1 applic topical BID 11/16/24 02/21/25 ointment baclofen 10 mg tablet 10 mg PO BID 11/16/24 02/21/25 latanoprost 0.005 % eye drops 1 drp ophthalmic (eye) HS 11/16/24 02/21/25 sennosides 8.6 mg-docusate sodium 2 tab-cap PO DAILY PRN 11/16/24 02/21/25 50 mg tablet (Senna Plus) carbamide peroxide 6.5 % ear drops 5 drp otic (ear) Q7D PRN 11/17/24 02/21/25 (Ear Wax Removal Kit) clotrimazole 1 % topical cream 1 applic topical BID 12/12/24 02/21/25 acetic acid 0.25 % irrigation See Rx Instructions .Route BID 01/04/25 02/21/25 solution ferrous sulfate 325 mg (65 mg 325 mg PO Q48H 01/04/25 02/21/25 iron) tablet metformin 500 mg tablet,extended 1,000 mg PO QPM 01/04/25 02/21/25 release 24 hr oxycodone 5 mg tablet 5 mg PO Q6H PRN 01/04/25 02/21/25 sennosides 8.6 mg tablet (senna) 17.2 mg PO DAILY PRN 01/28/25 02/21/25 ondansetron HCl 4 mg tablet 4 mg PO BID 02/21/25 02/21/25 Previous Rx's ?Medication ?Instructions ?Recorded allopurinol 100 mg tablet 100 mg PO DAILY #30 tabs 11/19/24 Allergies Allergy/AdvReac Type Severity Reaction Status Date / Time Haemophilus B polysaccharide Allergy Unknown Verified 02/05/25 15:37 conj w vancomycin Allergy Unknown Verified 02/05/25 15:37 PFSH [facility] Medical History Chronic anticoagulation ?Z79.01 - FCI (current) use of anticoagulants (ICD-10) History of pulmonary embolism ?Z86.711 - Personal history of pulmonary embolism (ICD-10) Paraplegia ?G82.20 - Paraplegia, unspecified (ICD-10) Lymphedema ?I89.0 - Lymphedema, not elsewhere classified (ICD-10) Diabetes mellitus ?E11.9 - Type 2 diabetes mellitus without complications (ICD-10) Stage III pressure ulcer of sacral region ?L89.153 - Pressure ulcer of sacral region, stage 3 (ICD-10) Stage III pressure ulcer of buttock ?L89.303 - Pressure ulcer of unspecified buttock, stage 3 (ICD-10) Pressure ulcer of coccygeal region, stage 1 ?L89.151 - Pressure ulcer of sacral region, stage 1 (ICD-10) Neurogenic bowel ?K59.2 - Neurogenic bowel, not elsewhere classified (ICD-10) Hyperuricemia ?E79.0 - Hyperuricemia without signs of inflammatory arthritis and tophaceous disease (ICD-10) Hyperlipidemia ?E78.5 - Hyperlipidemia, unspecified (ICD-10) Hypertension ?I10 - Essential (primary) hypertension (ICD-10) Coronary artery disease ?I25.10 - Atherosclerotic heart disease of [place] coronary artery without angina pectoris (ICD-10) Fracture, intertrochanteric, right femur ?S72.141A - Displaced intertrochanteric fracture of right femur, initial encounter for closed fracture (ICD-10) Sleep apnea ?G47.30 - Sleep apnea, unspecified (ICD-10) Eason catheter in place ?Z97.8 - Presence of other specified devices (ICD-10) Neurogenic bladder ?N31.9 - Neuromuscular dysfunction of bladder, unspecified (ICD-10) Obesity ?E66.9 - Obesity, unspecified (ICD-10) Multiple sclerosis ?G35 - Multiple sclerosis (ICD-10) Surgical History H/O insertion of cholecystostomy tube ?Z98.890 - Other specified postprocedural states (ICD-10) Family History Father Coronary artery disease High blood pressure High cholesterol Sleep apnea Social History Narrative: Resident of [facility]. Daughter Malika is healthcare power of securities attorney. Code status is DNR. Remote history of smoking What is your current living situation?: I presently have a place to live Problems where you live: no known problems Problems where you live details: NA In the past 12 months, utilities in danger of being shut off: no In past 12 months, lack of transportation kept you from medical appts, meetings, work, or getting things needed for daily living: no In the past 12 mos, have been you worried that your food would run out before you had money to buy more?: never true In the past 12 mos, the food you bought just didn't last and you didn't have money to buy more?: never true Highest level of school completed/degree received: 12th grade, no diploma Smoking Status: Former smoker What tobacco products do you use: cigarettes Smoking quit date/years: >15 years ago Do you use any of these nicotine containing products: None Second hand tobacco smoke exposure: No How often do you have a drink containing alcohol: never How often do you have six or more drinks on one occasion: Never AUDIT-C Alcohol total score: 0 Non-prescribed substance use: denies use Caffeine: Yes (tea and coffee) How often does anyone, including family, friends and others, physically hurt you: unable to answer How often does anyone, including family, friends and others, insult or talk down to you: unable to answer How often does anyone, including family, friends and others, threaten you with harm: unable to answer How often does anyone, including family, friends and others, scream or curse at you: unable to answer service: No Exam Narrative: Exam Narrative: Primary Survey: A- patent. Moaning loudly. No stridor. No respiratory distress. B- breathing easily. Lung sounds clear and equal. Oxygen saturation normal on room air C- no active bleeding. Blood pressure stable. Symmetric pulses x4 D- drowsy, moaning and confused. GCS is 12. No focal deficits. Generalized weakness. Cannot hold either hand up in the air against gravity. No obvious facial droop. Confused and moaning. Not able to answer questions. Constitutional: This is a large gentleman lying supine on his EMS gurney. He is generally well developed but looks chronically ill and debilitated. He is moaning and confused. Seems uncomfortable. HENT: Head: Atraumatic. Nose: Nose normal. Mouth/Throat: Oral mucosa is clear but dry no trismus. Visualized Pharynx normal. Tonsils symmetric. No tonsillar enlargement, erythema, or exudate. Eyes: Conjunctivae normal. EOM normal. Pupils equal, round, and reactive to light. No scleral icterus. Neck: Normal range of motion. Neck supple. No tracheal deviation present. No JVD Cardiovascular: Normal rate, regular rhythm. No gallop. No friction rub. No murmur heard. Symmetric radial and PT artery pulses Pulmonary/Chest: Exam limited because he can not cooperate with good breathing.. No stridor. No respiratory distress. No wheezes. No rales. No rhonchi . No tenderness. Abdominal: Soft. Bowel sounds normal. No distension. No mass. Seems to have right-sided abdominal tenderness. No rebound. No guarding. Cholecystostomy tube in place and is draining some brown fluid. No definite peritoneal findings. Because of his confusion, difficult to determine if he is actually tender or if he is just moaning. Seems to moan more loudly when I palpate his right abdomen. Musculoskeletal: With assistance of 2 nurses were able to get the patient undressed. He is rolled onto his right side for back exam. Thoracic and lumbar spines are normal. I am able to evaluate his bedsores. He has a wound VAC in place on the bed sore on his left buttock. The skin around the wound VAC looks good. It appears as though the wound VAC tubing is broken under the dressing. He also has decubitus ulcers directly in the midline at the top/posterior and of his gluteal cleft with skin breakdown and some surrounding redness, small amount of bleeding and purulent drainage. He has a 3rd large decubitus ulcer that is covered by a Mepilex dressing. I took the dressing down it does appear he that he has a wet gauze pack there. It is tunneling deeper into the soft tissue. There is not any purulent drainage but the skin is red around this and the wound smells malodorous. RUE: Normal range of motion. No tenderness. No deformity LUE: Normal range of motion. No tenderness. No deformity RLE: Normal range of motion. No edema. No tenderness. No deformity LLE: Normal range of motion. No edema. No tenderness. No deformity Lymph: No cervical adenopathy. Neurological: Patient is awake but moaning. He is drowsy. GCS is fluctuating between 12 and 13 initially. Initially he is just moaning and not following commands or answering questions. Subsequently once we got him into his ER bed and got him undressed he was alert still confused but able to answer some questions. Specifically when I ask him why he is moaning he is able to tell me it is because his ?ass hurts. ? Subsequent GCS is 14. He has generalized weakness. No focal deficits. No facial droop. Skin: Decubitus ulcers. Otherwise skin is pink, warm, dry. Psychiatric: Confused and drowsy. Limited. Const: Vital Signs, click to edit/add: Vital Signs - 24 hr 02/21/25 12:30 02/21/25 12:58 02/21/25 13:00 Temperature 96.0 F L Pulse Rate 82 Pulse Rate [Pulse Oximeter] 81 Respiratory Rate 16 12 10 L Blood Pressure Blood Pressure [Ri ght Upper Arm] 123/58 L Pulse Oximetry 99 98 Oxygen Delivery Me thod Room Air 02/21/25 13:15 02/21/25 13:17 02/21/25 13:30 Temperature Pulse Rate 84 79 82 Pulse Rate [Pulse Oximeter] Respiratory Rate 12 9 L Blood Pressure 121/55 L Blood Pressure [Ri ght Upper Arm] Pulse Oximetry 91 94 91 Oxygen Delivery La thod 02/21/25 13:32 02/21/25 13:50 02/21/25 14:00 Temperature Pulse Rate 80 87 82 Pulse Rate [Pulse Oximeter] Respiratory Rate 11 L 9 L Blood Pressure 101/87 Blood Pressure [Ri ght Upper Arm] Pulse Oximetry 92 96 94 Oxygen Delivery La thod 02/21/25 14:02 02/21/25 14:15 02/21/25 14:30 Temperature Pulse Rate 86 83 87 Pulse Rate [Pulse Oximeter] Respiratory Rate 10 L 12 Blood Pressure 105/49 L Blood Pressure [Ri ght Upper Arm] Pulse Oximetry 94 93 [facility] 14:32 02/21/25 14:45 02/21/25 15:00 Temperature Pulse Rate 86 85 83 Pulse Rate [Pulse Oximeter] Respiratory Rate 12 11 L 11 L Blood Pressure 113/77 Blood Pressure [Ri ght Upper Arm] Pulse Oximetry 96 93 [facility] 02/21/25 15:02 02/21/25 15:03 02/21/25 15:15 Temperature Pulse Rate 85 84 82 Pulse Rate [Pulse Oximeter] Respiratory Rate 13 10 L Blood Pressure 96/44 L Blood Pressure [Ri ght Upper Arm] Pulse Oximetry 92 94 94 [facility] 02/21/25 15:30 02/21/25 15:32 02/21/25 15:45 Temperature Pulse Rate 92 93 86 Pulse Rate [Pulse Oximeter] Respiratory Rate 15 19 21 Blood Pressure 120/86 Blood Pressure [Ri ght Upper Arm] Pulse Oximetry 95 95 96 Oxygen Delivery La thod 02/21/25 16:00 02/21/25 16:02 02/21/25 16:03 Temperature Pulse Rate 91 90 91 Pulse Rate [Pulse Oximeter] Respiratory Rate 17 22 11 L Blood Pressure 125/55 L Blood Pressure [Ri ght Upper Arm] Pulse Oximetry 95 93 94 Oxygen Delivery La thod 02/21/25 16:15 02/21/25 16:30 02/21/25 16:33 Temperature Pulse Rate 90 94 95 Pulse Rate [Pulse Oximeter] Respiratory Rate 13 14 13 Blood Pressure 97/47 L Blood Pressure [Ri ght Upper Arm] Pulse Oximetry 94 94 94 Oxygen Delivery Me thod 02/21/25 16:34 02/21/25 16:45 02/21/25 16:55 Temperature 96.5 F L Pulse Rate 94 92 95 Pulse Rate [Pulse Oximeter] Respiratory Rate 13 14 Blood Pressure 103/37 L Blood Pressure [Ri ght Upper Arm] Pulse Oximetry 94 94 94 Oxygen Delivery Me thod 02/21/25 16:57 02/21/25 17:00 02/21/25 17:02 Temperature Pulse Rate 92 92 88 Pulse Rate [Pulse Oximeter] Respiratory Rate 10 L Blood Pressure 102/46 L 110/38 L Blood Pressure [Ri ght Upper Arm] Pulse Oximetry 93 95 91 Oxygen Delivery Me thod 02/21/25 17:15 02/21/25 17:30 02/21/25 17:32 Temperature Pulse Rate 95 93 92 Pulse Rate [Pulse Oximeter] Respiratory Rate 12 Blood Pressure 120/41 L Blood Pressure [Ri ght Upper Arm] Pulse Oximetry 93 93 91 Oxygen Delivery Me thod 02/21/25 17:45 02/21/25 18:00 02/21/25 18:02 Temperature Pulse Rate 91 91 92 Pulse Rate [Pulse Oximeter] Respiratory Rate 10 L 11 L 16 Blood Pressure 84/39 L Blood Pressure [Ri ght Upper Arm] Pulse Oximetry 91 92 91 Oxygen Delivery Me thod 02/21/25 18:04 02/21/25 18:15 02/21/25 18:30 Temperature Pulse Rate 89 95 92 Pulse Rate [Pulse Oximeter] Respiratory Rate 13 12 Blood Pressure 101/35 L Blood Pressure [Ri ght Upper Arm] Pulse Oximetry 89 92 91 Oxygen Delivery Me thod 02/21/25 18:32 02/21/25 18:45 02/21/25 19:00 Temperature Pulse Rate 98 93 96 Pulse Rate [Pulse Oximeter] Respiratory Rate 14 12 16 Blood Pressure 106/37 L Blood Pressure [Ri ght Upper Arm] Pulse Oximetry 90 92 89 Oxygen Delivery Me thod 02/21/25 19:02 02/21/25 19:15 02/21/25 19:30 Temperature Pulse Rate 93 93 98 Pulse Rate [Pulse Oximeter] Respiratory Rate 15 18 Blood Pressure 97/31 L Blood Pressure [Ri ght Upper Arm] Pulse Oximetry 91 93 92 Oxygen Delivery Me thod 02/21/25 19:32 02/21/25 19:45 02/21/25 20:00 Temperature Pulse Rate 97 98 99 Pulse Rate [Pulse Oximeter] Respiratory Rate 10 L 13 12 Blood Pressure 99/41 L Blood Pressure [Ri ght Upper Arm] Pulse Oximetry 92 91 91 Oxygen Delivery Me thod 02/21/25 20:02 02/21/25 20:15 Temperature Pulse Rate 100 103 H Pulse Rate [Pulse Oximeter] Respiratory Rate 15 13 Blood Pressure 93/41 L Blood Pressure [Ri ght Upper Arm] Pulse Oximetry 89 90 Oxygen Delivery Me thod Course Course ED Course: Patient arrived by EMS from his care facility at [facility]. A pre-hospital stroke team activation was called because of his moaning and nonverbal status per EMS. I met the patient in the ambulance crew in the ER hallway and the patient was taken directly to CT for a noncontrast head CT. It sounds like last known well time was last night and he was found with slurred speech this morning at 7 and was worse around lunchtime today when his nurses from [facility] call the ambulance. He is now nonverbal and moaning. My read of the noncontrast head CT shows no acute intracranial hemorrhage but potentially some hydrocephalus. Unclear if this is new or old. Formal Head CT result: FINDINGS: Parenchyma: No acute hemorrhage, infarction, or mass. Moderate confluent periventricular white matter hypoattenuation is nonspecific and is favored to represent chronic small vessel ischemic disease. Ventricles and extra-axial spaces: Moderate involutional changes. Visualized paranasal sinuses: Clear. Mastoid air cells: Partially opacified on the right. Bones: No focal abnormality. Additional comment: None. IMPRESSION: No acute hemorrhage or large territory infarct. We did have a conversation with the stroke neurologist. Based on this presentation, the stroke neurologist I agree that this is likely not an acute ischemic CVA. Even if it is, the patient's last known well time was yesterday. He is not a candidate for IV or intra-arterial intervention. We deescalated the stroke team activation. We changed our evaluation to look for potential sources of pain and or infection or sepsis that might cause his moaning and altered mental status. He appears to have painful decubitus ulcers with signs of infection especially in the ulcers of his gluteal cleft and left posterior buttock near the base of the buttock/perineum. No definite palpable abscess or gas in the soft tissue to suggest necrotizing infection. Labs and cultures are ordered. Started on IV antibiotics-meropenem. CT scan of his abdomen and pelvis along with his chest was obtained to look for sources of pain. IMPRESSION: 1. Improvement in minimal right lower lobe ground-glass and nodularity compared to a chest CT on 02/05/2025, likely aspiration. 2. Decompressed gallbladder with a cholecystostomy in place. Persistent indeterminate thickening and stranding of the gallbladder likely reflects chronic cholecystitis. 3. Indeterminate urinary bladder wall thickening with a Eason catheter in place. Recommend correlation with urinalysis. 4. Redemonstrated large soft tissue defect along the left ischial tuberosity with evidence of chronic osteomyelitis. Smaller soft tissue defect along the left posterior iliac bone with unchanged subtle sclerosis. No drainable fluid collection. Multiple bedside rechecks. Patient remained hemodynamically stable. Mental status fluctuated with a GCS ranging between 12 and 14. On repeat checks it seems as though more and more the pain was localizing to his abdomen and right upper quadrant. Although initially very difficult to determine what was causing his symptoms, I suspect this is probably a flare of his cholecystitis. His cholecystostomy tube seems to be in place radiographically but LFTs have gone up. I wonder if the cholecystostomy tube potentially could be clogged. Discussed with the patient's daughter by phone. She does want to go ahead with full care and would want him to be transferred for gallbladder surgery. She expresses her frustration that no one has taken out his gallbladder yet. Given his medical complexity and overall frailty, given my discussions with our hospitalist and surgery teams, they have concerned that he is very high risk to have surgical complications and is not appropriate for surgery here at [facility]. They strongly advocate transfer. Hospitalist also suggest that palliative care would be appropriate. In discussion with the patient's daughter she is not interested in palliative care. Her goals are to get his gallbladder out, then get him well enough so that he can have Plastic surgery for a flap on his sacral ulcers. Recheck-1800. GCS 14. Sleeping but arouses to voice. Eyes are open and momentarily focusing on me and seems more lucid than he had been earlier. Able to answer some simple questions. His most prominent pain now is in his abdomen. On repeat exam he is more tender in the right upper quadrant than in the left upper quadrant. He says currently he is not having a lot of pain in his sacral ulcers. He is currently position by nursing staff to be on his right lateral decubitus position, to get weight off of his sacral ulcers. Recheck-18 40. Called back to [facility] transfer line. It has been a few hours with no update from them. They are still working on getting general surgeon to call back for this patient. Vital Signs Vital signs: Initial Vital Signs Temperature 96.0 F L 02/21/25 12:30 Temperature Source Temporal Artery Scan 02/21/25 12:30 Pulse Rate 81 02/21/25 12:30 Respiratory Rate 16 02/21/25 12:30 Blood Pressure 123/58 L 02/21/25 12:30 Blood Pressure Mean 79 02/21/25 12:30 Blood Pressure Position Supine 02/21/25 12:30 Pulse Oximetry 99 02/21/25 12:30 Oxygen Delivery Method Room Air 02/21/25 12:30 Vital Signs Temperature 96.0 F L 02/21/25 12:30 Pulse Rate 81 02/21/25 12:30 Respiratory Rate 16 02/21/25 12:30 Blood Pressure 123/58 L 02/21/25 12:30 Pulse Oximetry 99 02/21/25 12:30 Oxygen Delivery Method Room Air 02/21/25 12:30 Temperature 96.5 F L 02/21/25 16:45 Pulse Rate 103 H 02/21/25 20:15 Respiratory Rate 13 02/21/25 20:15 Blood Pressure 93/41 L 02/21/25 20:02 Pulse Oximetry 90 02/21/25 20:15 Oxygen Delivery Method Room Air 02/21/25 12:30 Medications Administered Medications: Discontinued Medications Generic Name Dose Route Start Last Admin Trade Name Freq PRN Reason Stop Dose Admin Sodium Chloride 500 mls @ 1,000 mls/hr 02/21/25 13:04 02/21/25 15:02 0.9 % Sodium Chloride 500 Ml IV 02/21/25 13:33 Infused .Q30M BERONICA Infusion Meropenem 1 gm/ Sodium 100 mls @ 200 mls/hr 02/21/25 13:04 02/21/25 15:03 Chloride IVPB 02/21/25 13:05 Infused ONCE ONE Infusion Lactated Ringer's 1,000 mls @ 1,000 mls/hr 02/21/25 15:28 02/21/25 17:21 Lactated Ringers 1000 Ml IV 02/21/25 16:27 Infused .Q1H ONE Infusion Medical Decision Making MDM Narrative Medical decision making narrative: 75-year-old gentleman with debilitating multiple sclerosis which makes him bed bound. He has chronic nonhealing decubitus ulcers. Also history of a PE about 6 or 7 months ago, also chronic cholecystitis with decompressing cholecystostomy tube. He is brought to the ER today by EMS with altered mental status and slurred speech leading to aphasia that was 1st noted this morning but it sounds like his last known well time was actually yesterday. Neuro: A stroke team activation was called by EMS. Head CT is negative for bleed. In consultation with the stroke neurologist from [facility], we decided that this is likely not an acute ischemic stroke and we deescalated the stroke team. He is not a candidate for IV your intra-arterial thrombolytics. He does have confusion with fluctuating mental status suggestive of delirium. GCS initially was 12 any arrived in fluctuated between 12 and 14. He remains confused without any other focal deficits. Blood sugars normal at 157. Infectious disease: Patient does have chronic sacral and buttock ulcers. On my exam there is some erythema around some new ulcers in gluteal cleft as well as some malodorous discharge from the left lower buttock abscess. The left upper buttock abscess with the wound VAC appears to be relatively good, in comparison. Suspect that he probably has a new cellulitis. He has multiple medication allergies and intolerances. Started on meropenem. Our general surgeon did come to the ER today and she evaluated his wounds. She feels that they do not require any immediate surgical debridement. He is not febrile. He is not tachycardic or hypotensive. No evidence for septic shock. White count is 10.8 and differential shows 80% neutrophils. CT scan of his abdomen does show findings consistent with chronic cholecystitis but it appears as though his cholecystostomy tube is in proper position and has the bladder appropriately decompressed. However labs show abnormal LFTs e-mail possible early gamma ALT of 84, AST of 113. Lipase normal. Suspect that cholecystitis may be driving symptoms. Initially was unclear if it was gallbladder or if it was his sacral ulcers that were causing illness leading to his delirium. After a few hours here in the ER, more more symptoms seem to be localizing to abdominal pain in the right upper quadrant suggesting gallbladder is the primary culprit. Renal/electrolytes. Patient does have an acute kidney injury. Baseline creatinine less than 1.0. When he was here in the ER about 10 days ago creatinine had gone up to 2.0. Today is again worse up to 2.7. BUN is elevated at 52 which would suggest this is probably prerenal. IV fluids administered. Patient has a low bicarb level at 17 which could also fit with dehydration. Sodium mildly low at 133. Potassium 5.3. EKG shows no findings of acute hyperkalemia. Pulmonary. Patient has a known history of PE the presentation really does not seem consistent with an acute recurrent PE today.. He is not short of breath or hypoxic. We believe he still on anticoagulation. Chest CT does not show any signs of pneumonia or other pulmonary infection. VBG shows normal pH and pCO2 36. Cardiac. EKG shows sinus rhythm. Troponin undetectable. Normal sinus rhythm. Blood pressure normal. Endocrine. Glucose 157. No evidence for DKA or NKHSS. Disposition. Consult with hospitalist Dr. James and surgeon, Dr. Mejia. They both recommend transfer to a higher level of care given the patient's complexity. Discussed with the patient's daughter. She would agree with transfer and would request [facility] if possible. Challenge if mid right wrist is not available. We were where able to get a bed for this patient at [facility]. Discussed with general surgeon Dr. Barrientos who feels that there is no need for immediate surgical intervention. Subsequently discussed with hospitalist Dr. Thomas, who will accept to the hospitalist service. Patient will be transferred by EMS. Lab Data Labs: Lab Results 02/21/25 Range/Units 12:48 WBC 10.87 (4.50-11.00) K/uL RBC 3.86 L (4.30-5.90) m/uL Hgb 9.9 L (13.5-17.5) gm/dL Hct 32.0 L (37.0-53.0) % MCV 83 (80-100) fL MCH 26 (26-34) pg MCHC 31 L (32-36) gm/dL RDW Coeff of Rey 17.4 H (11.5-15.5) % Plt Count 237 (140-440) K/uL Neut % (Auto) 80.7 H (42.0-72.0) % Lymph % (Auto) 11.2 L (20-44) % Vermilion % (Auto) 6.1 (0.0-11.0) % Eos % (Auto) 1.5 (0.0-7.0) % Baso % (Auto) 0.1 (0.0-3.0) % Neut # (Auto) 8.80 H (1.7-7.0) K/uL Lymph # (Auto) 1.20 (0.90-2.90) K/uL Vermilion # (Auto) 0.70 (0.00-0.90) K/UL Eos # (Auto) 0.16 (0.00-0.50) K/uL Baso # (Auto) 0.01 (0.00-0.30) K/uL Abs Immat Gran (auto) 0.04 (0.00-0.30) K/uL Imm/Tot Granulo (auto) 0.4 % VBG pH 7.337 (7.32-7.43) VBG pCO2 36 L (40-50) mmHG VBG pO2 46.0 (25-47) mmHG VBG HCO3 19 L (21-28) mmol/L Sodium 133 L (135-149) mmol/L Potassium 5.3 H (3.6-5.1) mmol/L Chloride 105 (96-114) mmol/L Carbon Dioxide 17 L (20-32) mmol/L Anion Gap 11 (7-15) mEq/L BUN 52 H (7-30) mg/dL Creatinine 2.7 H (0.5-1.5) mg/dL Estimated GFR 24 ml/min Glucose 157 H (60-115) mg/dL Lactate 2.0 H (0.5-1.9) mmol/L Calcium 9.7 (8.4-10.6) mg/dL Total Bilirubin 0.9 (0.1-1.5) mg/dL Direct Bilirubin 0.6 H (0.0-0.5) mg/dL AST 113 H (12-35) U/L ALT 84 H (4-50) U/L Alkaline Phosphatase 437 H (40-150) U/L Troponin I < 0.01 (0.01-0.04) ng/mL C-Reactive Protein 19.1 H (0.5-1.0) mg/dL Total Protein 6.8 (6.0-8.3) g/dL Albumin 3.5 (3.3-5.0) g/dL Lipase 55 (23-300) U/L ECG Data Interpretation: Normal sinus rhythm Rate 85 KS interval 202 Normal QRS axis. No ST segment elevation or depression. QTC 399 Discharge Plan Discharge Clinical Impression: Acute alteration in mental status, Acute cholecystitis, Abnormal LFTs, Sacral pressure ulcer, BISHOP (acute kidney injury), Sepsis Patient Disposition: Xfer Other Prescriptions: No Action bacitracin 500 unit/gram ointment 1 applic topical BID sennosides-docusate sodium [Senna Plus] 8.6-50 mg tablet 2 tab-cap PO DAILY PRN Patient Comments: plus prn baclofen 10 mg tablet 10 mg PO BID Eliquis 5 mg tablet 5 mg PO BID atorvastatin 80 mg tablet 80 mg PO HS latanoprost 0.005 % drops 1 drp ophthalmic (eye) HS Rx Instructions: BOTH EYES Ear Wax Removal Kit 6.5 % drops 5 drp otic (ear) Q7D PRN Patient Comments: every Monday allopurinol 100 mg Tablet 100 mg PO DAILY Qty: 30 0RF clotrimazole 1 % cream 1 applic topical BID sennosides [senna] 8.6 mg tablet 17.2 mg PO DAILY PRN furosemide 40 mg tablet 40 mg PO DAILY metoprolol succinate 100 mg tablet extended release 24 hr 100 mg PO DAILY pantoprazole 40 mg tablet,delayed release (DR/EC) 40 mg PO BID calcium carbonate [Zachary-Gest Antacid] 200 mg calcium (500 mg) tablet,chewable 400 mg PO BID PRN polyethylene glycol 3350 17 gram/dose powder 17 g PO DAILY Patient Comments: plus prn lisinopril 40 mg tablet 40 mg PO DAILY cholecalciferol (vitamin D3) [Vitamin D3] 25 mcg (1,000 unit) tablet 25 mcg PO DAILY acetic acid 0.25 % solution See Rx Instructions .ROUTE BID Patient Comments: [NO ORIGINAL SIG] Rx Instructions: 1 APPLICATION twice a day AND PRN TO BUTTOCK WOUND oxycodone 5 mg tablet 5 mg PO Q6H PRN ferrous sulfate 325 mg (65 mg iron) Tablet 325 mg PO Q48H metformin 500 mg Tablet Extended Release 24 Hr 1,000 mg PO QPM ondansetron HCl 4 mg tablet 4 mg PO BID Stand Alone Forms: MyHealth Info Instructions Procedures ABG Interpretation ABG Results: 02/21/25 12:48 VBG pH 7.337 VBG pCO2 36 L VBG pO2 46.0 VBG HCO3 19 L
--- NOTE | 2025-02-21 12:44 | CRLHL7_ITS ---
For Patients: As a result of the Century Cures Act, medical imaging exams and procedure reports are released immediately into your electronic medical record. You may view this report before your referring provider. If you have questions, please contact your health care provider. INDICATION: Pain. Recent left pelvic osteomyelitis. TECHNIQUE: CT chest, abdomen and pelvis acquired 100 cc Omnipaque 350 IV contrast. COMPARISON: MR dated 02/05/2025. CT chest dated 02/05/2025. CT abdomen and pelvis 01/28/2025 FINDINGS: CHEST: Improvement ground-glass and nodularity within the right lung base (series 3, image 64). No consolidation. No pulmonary edema. Mild-moderate emphysema is present. No pleural effusion or pneumothorax. No mediastinal or hilar lymphadenopathy. The heart is normal in size. Aorta is nonaneurysmal. No axillary lymphadenopathy. No chest wall mass. No fracture. ABDOMEN AND PELVIS: The liver is unchanged in appearance. Grossly unchanged cystic lesion is seen within the dome with a coarse calcification. More inferiorly is a unchanged smaller cysts within the posterior right ana liver. The gallbladder is minimally distended with a cholecystostomy tube in place. There is persistent thickening and stranding of the decompressed gallbladder which likely represents inflammation. No adjacent fluid collection. No free air. No gross biliary ductal dilatation. Spleen is unremarkable. Moderate atrophy of the pancreas. Thickening of adrenal glands is unchanged. Prominent renal pelvis without hydronephrosis seen within either kidney. Indeterminate 1.9 centimeter hypoattenuating left renal mass is redemonstrated with eccentric area of calcification. This is grossly stable (181). Recommend close attention on follow-up. There are cysts as well as subcentimeter hypoattenuating lesions which are too small to further characterize. The urinary bladder is partially distended with a Eason catheter in place. Indeterminate urinary bladder wall thickening. Soft tissue defect is noted at the level of the left ischial tuberosity which extends inferiorly to the level of the left gluteal cleft. The anus is decompressed. No adjacent fluid collection is seen. The rectum is nondilated and unremarkable. The colon is unremarkable. The appendix is nondilated. The stomach is partially distended. The small bowel is nondilated without evidence of a small-bowel obstruction. No free air no ascites. Small fat containing umbilical hernia. No lymphadenopathy. Prostate is unremarkable. Aorta is normal caliber. Again noted is a soft tissue defect within the left gluteal region extending to left ischial tuberosity. There is sclerosis of the left ischial tuberosity with some fragmentation in keeping with known chronic osteomyelitis. A small amount of stranding extends medially to the left ischioanal fossa. No organized drainable fluid collection is seen. A 2nd soft tissue defect is noted at the level of the left posterior iliac bone. There is minimal sclerosis noted without definitive erosion to suggest acute osteomyelitis. Soft tissue thickening is noted extending medially to the sacrum without organized drainable abscess. Some soft tissue ulceration is noted along the adjacent right posterior iliac bone (226). Instrumentation is seen within the right hip. No acute fracture. Grossly stable irregularity of the inferior endplate of L5. IMPRESSION: 1. Improvement in minimal right lower lobe ground-glass and nodularity compared to a chest CT on 02/05/2025, likely aspiration. 2. Decompressed gallbladder with a cholecystostomy in place. Persistent indeterminate thickening and stranding of the gallbladder likely reflects chronic cholecystitis. 3. Indeterminate urinary bladder wall thickening with a Eason catheter in place. Recommend correlation with urinalysis. 4. Redemonstrated large soft tissue defect along the left ischial tuberosity with evidence of chronic osteomyelitis. Smaller soft tissue defect along the left posterior iliac bone with unchanged subtle sclerosis. No drainable fluid collection. Please note that all CT scans at this facility use dose modulation, iterative reconstruction, and/or weight-based dosing when appropriate to reduce radiation dose to as low as reasonably achievable. Dictated by Herb Sinclair MD @ 02/21/2025 2:10:06 PM (Electronically Signed)
[2025-02-21 13:06] LABS: HCO3 VBG 19 mmol/L (21-28); Lactate* 2.0 mmol/L (0.5-1.9); PCO2 VBG 36 mmHG (40-50); PO2 VBG 46.0 mmHG (25-47); pH VBG 7.337 (7.32-7.43)
[2025-02-21 13:12] LABS: Hematocrit 32.0 % (37.0-53.0); Hemoglobin* 9.9 gm/dL (13.5-17.5); Immature Granulocytes Abs Auto 0.04 K/uL (0.00-0.30); Immature Granulocytes Pct Auto 0.4 %; Mean Corpuscular HGB Conc 31 gm/dL (32-36); Mean Corpuscular Hemoglobin 26 pg (26-34); Mean Corpuscular Volume 83 fL (80-100); RDW Coefficient of Variation % 17.4 % (11.5-15.5); Red Blood Count 3.86 m/uL (4.30-5.90); White Blood Count* 10.87 K/uL (4.50-11.00)
[2025-02-21 13:13] LABS: Lymphocytes Absolute Auto 1.20 K/uL (0.90-2.90); Slide Review Reflex No
[2025-02-21 13:24] LABS: Albumin* 3.5 g/dL (3.3-5.0); Chloride* 105 mmol/L (96-114); Potassium* 5.3 mmol/L (3.6-5.1); Sodium* 133 mmol/L (135-149)
[2025-02-21 13:26] LABS: Blood Urea Nitrogen* 52 mg/dL (7-30); Creatinine* 2.7 mg/dL (0.5-1.5); Estimated Glomerular Filt Rate 24 ml/min
[2025-02-21 13:27] LABS: Alanine Aminotransferase* 84 U/L (4-50); Alkaline Phosphatase* 437 U/L (40-150); Anion Gap 11 mEq/L (7-15); Aspartate Amino Transferase* 113 U/L (12-35); Bilirubin Direct* 0.6 mg/dL (0.0-0.5); Bilirubin Total* 0.9 mg/dL (0.1-1.5); Calcium* 9.7 mg/dL (8.4-10.6); Carbon Dioxide* 17 mmol/L (20-32); Glucose* 157 mg/dL (60-115); Total Protein* 6.8 g/dL (6.0-8.3)
--- OUTSIDE RECORDS SUMMARY | 2025-02-21 13:33 | XMS_ITS ---
Author Name Auto Generated, Auto Generated Organization [facility] Functional Status No Results Mental Status No Results Allergies and Intolerances No Known Allergies Problems Active Concerns * Multiple sclerosis* Code: [id number] * Start Date: MonJan 26 21:34:00 EDT 2022 * End Date: * Text: * Paraparesis, bilateral* Code: 2723027 * Start Date: MonJan 26 21:34:00 EDT 2022 * End Date: * Text: * Neurogenic bladder* Code: 864884219 * Start Date: MonJan 26 21:35:00 EDT 2022 * End Date: * Text: * Obstructive sleep apnea* Code: 73333865 * Start Date: MonFeb 06 13:00:00 EDT 2022 * End Date: * Text: * Arteriosclerotic cardiovascular disease* Code: 56678256 * Start Date: MonJan 23 11:16:00 EDT 2024 * End Date: * Text: * Rheumatoid arthritis involving multiple sites, unspecified whether rheumatoid factor present* Code: 923162287 * Start Date: MonFeb 24 10:41:00 EDT 2022 * End Date: * Text: * Health care maintenance* Code: 336849183 * Start Date: MonFeb 03 16:15:00 EDT 2024 * End Date: * Text: * Obesity, Class II, BMI 35-39.9* Code: 097715598276962 * Start Date: MonJul 26 22:03:00 EST 2023 * End Date: * Text: * Mild cognitive impairment* Code: 545874329 * Start Date: MonOct 16 16:19:00 EDT 2023 * End Date: * Text: * Pressure injury of other site, unstageable* Code: 1249190719 * Start Date: MonDec 24 23:31:00 EDT 2024 * End Date: * Text: * Glaucoma* Code: 82917212 * Start Date: MonFeb 05 13:07:00 EDT 2023 * End Date: * Text: * Type 2 diabetes mellitus* Code: 83391825 * Start Date: MonJan 23 11:17:00 EDT 2024 * End Date: * Text: * Chronic pain syndrome* Code: 382947926 * Start Date: MonMay 30 18:01:00 EST 2023 * End Date: * Text: * Skin tag* Code: 283334329 * Start Date: MonMay 31 12:34:00 EST 2023 * End Date: * Text: * Acute DVT of both tibial veins* Code: 789758948275021 * Start Date: MonAug 19 00:00:00 EST 2024 * End Date: MonAug 19 00:00:00 EST 2024 * Text: * Acute pulmonary embolism, unspecified pulmonary embolism type, unspecified whether acute cor pulmonale present* Code: 069629496 * Start Date: MonAug 23 00:00:00 EST 2024 * End Date: MonAug 23 00:00:00 EST 2024 * Text: * Acute DVT of right tibial vein* Code: 936411296243631 * Start Date: MonAug 19 00:00:00 EST 2024 * End Date: MonAug 19 00:00:00 EST 2024 * Text: * Acute deep vein thrombosis (DVT) of left peroneal vein* Code: 17548165490178675 * Start Date: MonAug 19 00:00:00 EST 2024 * End Date: MonAug 19 00:00:00 EST 2024 * Text: * Atherosclerosis of extremity with intermittent claudication* Code: 49337919 * Start Date: MonAug 19 14:55:00 EST 2024 * End Date: * Text: * Acute cholecystitis* Code: 64628827 * Start Date: MonAug 23 23:31:00 EST 2024 * End Date: * Text: * Cellulitis of right lower limb* Code: 257600612 * Start Date: MonAug 23 00:00:00 EST 2024 * End Date: MonAug 23 00:00:00 EST 2024 * Text: * Cellulitis of left lower limb* Code: [id number] * Start Date: MonAug 23 00:00:00 EST 2024 * End Date: MonAug 23 00:00:00 EST 2024 * Text: * Sepsis, unspecified organism* Code: 56295667 * Start Date: MonAug 23 00:00:00 EST 2024 * End Date: MonAug 23 00:00:00 EST 2024 * Text: * Severe sepsis without septic shock* Code: 369473985 * Start Date: MonAug 23 00:00:00 EST 2024 * End Date: MonAug 23 00:00:00 EST 2024 * Text: * BISHOP (acute kidney injury)* Code: 52792927 * Start Date: MonAug 23 00:00:00 EST 2024 * End Date: MonAug 23 00:00:00 EST 2024 * Text: * History of cholecystitis* Code: 442302625 * Start Date: MonAug 29 17:25:00 EST 2024 * End Date: * Text: * Cholecystostomy tube dysfunction* Code: 089591304 * Start Date: MonAug 29 17:25:00 EST 2024 * End Date: * Text: * Bilateral impacted cerumen* Code: 3852915538439992 * Start Date: MonSep 19 14:29:00 EST 2024 * End Date: * Text: * Pressure injury of left buttock, stage 2* Code: 92820734707018 * Start Date: MonOct 11 14:16:00 EDT 2024 * End Date: * Text: * Blood blister* Code: 588561771 * Start Date: MonOct 29 23:29:00 EDT 2024 * End Date: * Text: * Gout* Code: 46533487 * Start Date: MonJan 23 11:17:00 EDT 2024 * End Date: * Text: * Other cystostomy status* Code: 498866749 * Start Date: MonDecember 18 09:41:00 EDT 2024 * End Date: * Text: * Cholecystostomy care* Code: 406895612 * Start Date: MonDecember 18 09:48:00 EDT 2024 * End Date: * Text: * Frailty* Code: 079666316 * Start Date: MonDecember 18 11:20:00 EDT 2024 * End Date: * Text: * Pressure injury of buttock, unstageable, unspecified laterality* Code: 50504330702567594 * Start Date: MonDec 26 11:57:00 EDT 2024 * End Date: * Text: * Sepsis* Code: 10937490 * Start Date: MonJan 13 08:59:00 EDT 2024 * End Date: * Text: * Pressure ulcer of left buttock, stage 4* Code: 26898477019371 * Start Date: MonJan 13 09:02:00 EDT 2024 * End Date: * Text: * Osteomyelitis* Code: 59787791 * Start Date: MonJan 13 09:04:00 EDT 2024 * End Date: * Text: * Thrombophilia* Code: 533749908 * Start Date: MonJan 23 11:16:00 EDT 2024 * End Date: * Text: * Acute chest pain* Code: 658155153 * Start Date: MonFeb 09 22:24:00 EDT 2024 * End Date: * Text: * Low oxygen saturation* Code: 434360359 * Start Date: MonFeb 09 22:24:00 EDT 2024 * End Date: * Text: Reason for Referral Past Medical History
--- OUTSIDE RECORDS SUMMARY | 2025-02-21 13:35 | XMS_ITS | Encounter Summary ---
Author Organization [facility] Address [address] [place] [address] Care Team Providers Care Slubber Hand Name Role Phone Jeff Reyes M.D. Primary Care Provider [phone] Encounter Details Date Type Department Care Team (Late st Contact Info) Description 01/21/2025 Clinical Communication Department of Oncology in [place], [place] [address] [place] [phone] Pablo Vo M.D. [address] [place] [phone] Social History Tobacco Use Types Packs/Day Years Used Date Smoking Tobacco: Former Cigarettes Q uit: 1977 Passive Smoke Exposure: Never Alcohol Use Standard Drinks/Week Comments Not Currently 1 (1 standard drink = 0.6 oz pur e alcohol) [facility] Utilities Answer Date Recorded In the [...] your living situation today? I have a [facility] place to live 11/08/2024 Education Answer Date Recorded What is the highest level of school you have completed or the highest degree you have received? 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 [address] [facility] [place] [address] documented as of this encounter Visit Diagnoses Not on filedocumented in this encounter Additional Health Concerns Assessment Noted Time PHQ-9 Depression Total Score: 10 018 11:00 AM CDT documented as of this encounter Care Teams Slubber Hand Relationship Specialty Start Date End Date Jeff Reyes M.D. [address] [place] [phone] PCP - General 03/14/24 documented as of this encounter
--- OUTSIDE RECORDS SUMMARY | 2025-02-21 13:36 | XMS_ITS | Encounter Summary ---
Author Organization [facility] Address [address] [place] [address] Care Team Providers Care Surgical Supply Assistant Name Role Phone Jeff Reyes M.D. Primary Care Provider [phone] Reason for Visit * Reason Onset Date Comments Nurse call back 01/31/2025 Encounter Details Date Type Department Care Team (Late st Contact Info) Description 01/31/2025 Clinical Communication Department of Oncology in [place], [place] [address] [place] [address] Pablo Vo M.D. [address] [place] [phone] Nurse call back Social History Tobacco Use Types Packs/Day Years Used Date Smoking Tobacco: Former Cigarettes Q uit: 1977 Passive Smoke Exposure: Never Alcohol Use Standard Drinks/Week Comments Not Currently 1 (1 standard drink = 0.6 oz pur e alcohol) [facility] Utilities Answer Date Recorded In the past [...] your living situation today? I have a [facility] place to live 11/08/2024 Education Answer Date Recorded What is the highest level of school you have completed or the highest degree you have received? 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 [address] [place] [phone] documented as of this encounter Visit Diagnoses Not on filedocumented in this encounter Additional Health Concerns Assessment Noted Time PHQ-9 Depression Total Score: 10 018 11:00 AM CDT documented as of this encounter Care Teams Surgical Supply Assistant Relationship Specialty Start Date End Date Jeff Reyes M.D. [address] [place] [phone] PCP - General 03/14/24 documented as of this encounter
--- OUTSIDE RECORDS SUMMARY | 2025-02-21 13:36 | XMS_ITS | Clinical Summary ---
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 Overview (02/06/2025): History of [place] Neurogenic bowel 05/26/2018 Primary hypertension 05/28/2015 Overview [...] Description 02/14/2025 Lab Requisition [facility] [phone] Carmenza Quiroz DRUG INSPECTOR 02/12/2025 Telephone [facility] [address] [facility] [address] [place] [address] Bijan Khanna MD Error-please disregard (Error/) 02/06/2025 Travel 02/05/2025 11:52 PM CDT - 02/07/2025 5:37 PM CDT Hospital Encounter [facility] [address] [place] [address] [facility], [facility] Hospitalists Of [facility], MD Rubin Zaragoza Kirsten Elizabeth, DO Tidwell, Erick José MD Chronic ulcer of sacral region, unspecified ulcer stage (HC) (Primary Dx) Discharge Disposition: [facility] Facility 02/03/2025 Lab Requisition [facility] [phone] Carmenza Quiroz DRUG INSPECTOR 01/20/2025 Lab Requisition [facility] [phone] Carmenza Quiroz, DRUG INSPECTOR 01/14/2025 Lab Requisition [facility] [address] [place] [address] Carmenza Quiroz DRUG INSPECTOR 12/30/2024 Lab Requisition [facility] [phone] Carmenza Quiroz, DRUG INSPECTOR 12/23/2024 Lab Requisition [facility] [phone] Carmenza Quiroz DRUG INSPECTOR 12/13/2024 Lab Requisition [facility] [phone] Sue Bailey MD 12/09/2024 Lab Requisition [facility] [phone] Carmenza Quiroz NP 11/29/2024 Lab Requisition [facility] [phone] Bijan Crawford MD from Last 3 Months Immunizations Immunization Administration Dates Next Due COVID-19 vaccine ([employer] 30mcg/0.3mL) 12YO+ BIVALENT PF, MDV 05/17/2022 [...] Info) Description 03/04/2025 9:00 AM CDT Appointment [facility] [address] [place] [address] 06/02/2025 10:30 AM COGNOS ARCHITECT Office Visit [facility] [address] [place] [address] Markel Schultz MD [address] [place] [address] Health Maintenance Due Date Last Done Comments [...] Associated Diagnosis Comments RED CELL MORPHOLOGY Routine 02/18/2025 7 :15 AM CDT Cholecystitis, unspecified Type 2 diabetes mellitus without complications (HC) PLATELET ESTIMATE Routine 02/18/2025 7:1 5 AM CDT Cholecystitis, unspecified Type 2 diabetes mellitus without complications (HC) MANUAL DIFFERENTIAL Routine 02/18/2025 7 :15 AM CDT Cholecystitis, unspecified Type 2 diabetes mellitus without complications (HC) CBC WITH AUTO DIFFERENTIAL Routine 02/18/2025 7:15 AM CDT Cholecystitis, unspecified Type 2 diabetes mellitus without complications (HC) HEMOGLOBIN A1C Routine 02/18/2025 7:15 AM CDT Cholecystitis, unspecified Type 2 diabetes mellitus without complications (HC) HEPATIC FUNCTION PANEL Routine 02/18/2025 7:15 AM CDT Cholecystitis, unspecified Type 2 diabetes mellitus without complications (HC) BASIC METABOLIC PANEL Routine 02/18/2025 7:15 AM CDT Cholecystitis, unspecified Type 2 diabetes mellitus without complications (HC) CBC WITH AUTO DIFFERENTIAL Routine 02/18/2025 7:15 AM CDT Cholecystitis, unspecified Type 2 diabetes mellitus without complications (HC) GLUCOSE METER Timed 02/07/2025 7:58 AM CDT [...] Results * (ABNORMAL) CBC WITH AUTO DIFFERENTIAL (02/18/2025 7:15 AM CDT) Only the most recent of7 resultswithin the time period is included. WHITE BLOOD COUNT 11.7(H) 4.5 - 11.0 thou/cu mm 02/18/2025 8:[address] [facility] RED BLOOD COUNT 4.39 4.30 - 5.90 mil/cu mm 02/18/2025 8:[address] [facility] HEMOGLOBIN 11.2(L) 13.5 - 17.5 g/dL 02/18/2025 8:[address] [facility] HEMATOCRIT 37.4 37.0 - 53.0 % 02/18/2025 8:[address] [facility] MCV 85 80 - 100 fL 02/18/2025 8:[address] [facility] MCH 25.5(L) 26.0 - 34.0 pg 02/18/2025 8:[address] [facility] MCHC 29.9(L) 32.0 - 36.0 g/dL 02/18/2025 8:[address] [facility] RDW 18.4(H) 11.5 - 15.5 % 02/18/2025 8:[address] [facility] PLATELET COUNT 219 140 - 440 thou/cu mm 02/18/2025 8:47 AM CDT [facility] MPV 9.6 6.5 - 11.0 fL 02/18/2025 8:47 AM CDT [facility] Blood BLOOD SPECIMEN / Unknown Butterfly / Unknown 02/18/2025 7:15 AM CDT 02/18/2025 8:19 AM CDT Carmenza Quiroz NP HEMATOLOGY Final Resul t [facility] [address] [place] [address] * HEMOGLOBIN A1C (02/18/2025 7:15 AM CDT) HEMOGLOBIN A1C SCREENING 6.3 <=6.4 % 02/18/2025 8:35 AM CDT [facility] Blood BLOOD SPECIMEN / Unknown Butterfly / Unknown 02/18/2025 7:15 AM CDT 02/18/2025 8:19 AM CDT Narrative [facility] - 02/18/2025 8:35 AM CDT (<5.7%) Normal (5.7% to 6.4%) Indicates prediabetes (>=6.5%) Confirms diabetes Falsely low levels may be seen with: Recent Transfusion, Recent Significant Blood Loss, Hemolytic Diseases, or Falsely elevated levels may be seen with: Untreated Anemias, Splenectomy Carmenza Quiroz NP CHEMISTRY Final Resul t [facility] [address] [place] [address] * RED CELL MORPHOLOGY (02/18/2025 7:15 AM CDT) Only the most recent of2 resultswithin the time period is included. RBC COMMENT RBC morphology appears normal RBC morphology appears normal, RBC morphology within normal limits for newborns. 02/18/2025 8:47 AM CDT [facility] Blood BLOOD SPECIMEN / Unknown Butterfly / Unknown 02/18/2025 7:15 AM CDT 02/18/2025 8:19 AM CDT Carmenza Quiroz NP HEMATOLOGY Final Resul t Performing Organization Address City/[facility]/ZIP Co de Phone Number [facility] [address] [place] [address] * PLATELET ESTIMATE (02/18/2025 7:15 AM CDT) Only the most recent of2 resultswithin the time period is included. PLATELET ESTIMATE Adequate Adequate, No estimate 02/18/2025 8:47 AM CDT [facility] Blood BLOOD SPECIMEN / Unknown Butterfly / Unknown 02/18/2025 7:15 AM CDT 02/18/2025 8:19 AM CDT Carmenza Quiroz NP HEMATOLOGY Final Resul t Performing Organization Address City/[facility] Co de Phone Number [facility] [address] [place] [address] * (ABNORMAL) MANUAL DIFFERENTIAL (02/18/2025 7:15 AM CDT) Pathologist [facility] % NEUTROPHILS 74.0 % 02/18/2025 8:[address] [facility] % LYMPHOCYTES 18.0 % 02/18/2025 8:[address] [facility] % MONOCYTES 8.0 % 02/18/2025 8:[address] [facility] % EOSINOPHILS 0.0 % 02/18/2025 8:[address] [facility] % BASOPHILS 0.0 % 02/18/2025 8:[address] [facility] NEUTROPHILS ABSOLUTE 8.7(H) 1.7 - 7.0 thou/cu mm 02/18/2025 8:[address] [facility] LYMPHOCYTES ABSOLUTE 2.1 0.9 - 2.9 thou/cu mm 02/18/2025 8:[address] [facility] MONOCYTES ABSOLUTE 0.9(H) <0.9 thou/cu mm 02/18/2025 8:47 AM T [facility] EOSINOPHILS ABSOLUTE 0.0 <0.5 thou/cu mm 02/18/2025 8:47 AM T [facility] BASOPHILS ABSOLUTE 0.0 <0.3 thou/cu mm 02/18/2025 8:[address] [facility] Blood BLOOD SPECIMEN / Unknown Butterfly / Unknown 02/18/2025 7:15 AM CDT 02/18/2025 8:19 AM CDT us Carmenza Quiroz DRUG INSPECTOR HEMATOLOGY Final Resul t [facility] [address] [place] [address] * (ABNORMAL) HEPATIC FUNCTION PANEL (02/18/2025 7:15 AM CDT) ALBUMIN 3.3(L) 4.0 - 4.9 g/dL 02/18/2025 8:[address] [facility] PROTEIN,TOTAL 6.9 6.0 - 8.0 g/dL 02/18/2025 8:[address] [facility] BILIRUBIN,TOTAL 0.5 0.0 - 1.2 mg/dL 02/18/2025 8:[address] [facility] BILIRUBIN,DIRECT 0.3(H) 0.0 - 0.2 mg/dL 02/18/2025 8:[address] [facility] BILIRUBIN,INDIRE CT 0.2 0.2 - 0.8 mg/dL 02/18/2025 8:[address] [facility] ALK PHOSPHATASE 185(H) 40 - 129 IU/L 02/18/2025 8:[address] [facility] ALT (SGPT) 39 10 - 50 IU/L 02/18/2025 8:[address] [facility] AST (SGOT) 37 10 - 50 IU/L 02/18/2025 8:[address] [facility] Blood BLOOD SPECIMEN / Unknown Butterfly / Unknown 02/18/2025 7:15 AM CDT 02/18/2025 8:19 AM CDT us Carmenza Quiroz DRUG INSPECTOR CHEMISTRY Final Resul t [facility] [address] [place] [address] * (ABNORMAL) BASIC METABOLIC PANEL (02/18/2025 7:15 AM CDT) Only the most recent of6 resultswithin the time period is included. SODIUM 138 136 - 145 mmol/L 02/18/2025 8:[address] [facility] POTASSIUM 4.2 3.5 - 5.1 mmol/L 02/18/2025 8:[address] [facility] CHLORIDE 106 98 - 107 mmol/L 02/18/2025 8:[address] [facility] CO2,TOTAL 20(L) 22 - 29 mmol/L 02/18/2025 8:[address] [facility] ANION GAP 12 5 - 18 02/18/2025 8:[address] [facility] GLUCOSE 131(H) 70 - 99 mg/dL 02/18/2025 8:[address] [facility] CALCIUM 9.7 8.8 - 10.4 mg/dL 02/18/2025 8:[address] [facility] Comment: Reference ranges for this test were updated on 05/28/2024 to reflect our healthy population more accurately. Reference range changes are not retroactively applied to results, but previous results using the same methodology can be interpreted in the context of the new reference range. BUN 22 8 - 23 mg/dL 02/18/2025 8:[address] [facility] CREATININE 0.94 0.70 - 1.20 mg/dL 02/18/2025 8:[address] [facility] BUN/CREAT RATIO 23(H) 10 - 20 8:[address] [facility] eGFR 85(L) >90 mL/min/1. 73m2 02/18/2025 8:54 AM CDT [facility] Comment:As of 2021, eG FR is calculated by the CKD-EPI creatinine equation without race adjustment. eGFR can be influenced by muscle mass, exercise, and diet. The reported eGFR is an estimation only and is only applicable if the renal function is stable. Blood BLOOD SPECIMEN / Unknown Butterfly / Unknown 02/18/2025 7:15 AM CDT 02/18/2025 8:19 AM CDT us Carmenza Quiroz NP CHEMISTRY Final Resul t Performing Organization Address City/[facility]/ZIP Co de Phone Number [facility] [address] [place] [address] * (ABNORMAL) GLUCOSE METER (02/07/2025 7:58 AM CDT) Only the most recent of7 resultswithin the time period is included. GLUCOSE METER 146(H) 65 - 100 mg/dL 02/07/2025 7:58 AM CDT [facility] Blood BLOOD SPECIMEN / Unknown 02/07/2025 7:58 AM CDT 02/07/2025 7:58 AM CDT us Erick Lazaro MD CHEMISTRY Final Resu lt Performing Organization Address City/[facility]/ZIP Co de Phone Number [facility] [address] [place] [address], [place] * WBC AM (02/07/2025 7:05 AM CDT) Only the most recent of2 resultswithin the time period is included. WHITE BLOOD COUNT 7.8 4.5 - 11.0 thou/cu mm 02/07/2025 7:20 AM CDT [facility] NRBC 0.0 % 02/07/2025 7:20 AM CDT [facility] ABS NRBC 0.0 thou /cu mm 02/07/2025 7:20 AM CDT [facility] Blood BLOOD SPECIMEN / Unknown Venipuncture / Unknown 02/07/2025 7:05 AM CDT 02/07/2025 7:11 AM CDT us Erick Lazaro MD HEMATOLOGY Final Resu lt Performing Organization Address City/[facility] Co de Phone Number [facility] [address] [place] [address], [place] * (ABNORMAL) Hemoglobin AM (02/07/2025 7:05 AM CDT) Only the most recent of3 resultswithin the time period is included. HEMOGLOBIN 9.6(L) 13.5 - 17.5 g/dL 02/07/2025 7:20 AM CDT [facility] MCV 84 80 - 100 fL 02/07/2025 7:20 AM CDT [facility] Blood BLOOD SPECIMEN / Unknown Venipuncture / Unknown 02/07/2025 7:05 AM CDT 02/07/2025 7:11 AM CDT us Erick Lazaro MD HEMATOLOGY Final Resu lt Performing Organization Address [facility] Co de Phone Number [facility] [address] [place] [place] [phone], [place] * Potassium AM (02/07/2025 7:04 AM CDT) POTASSIUM 3.6 3.5 - 5.1 mmol/L 02/07/2025 7:46 AM CDT [facility] Blood BLOOD SPECIMEN / Unknown Venipuncture / Unknown 02/07/2025 7:04 AM CDT 02/07/2025 7:11 AM CDT us Erick Lazaro MD CHEMISTRY Final Resu lt Performing Organization Address City/[facility]/ZIP Co de Phone Number [facility] [address] [address], [place] * (ABNORMAL) Creatinine AM (02/07/2025 7:04 AM CDT) Pathologist [facility] eGFR 90(L) >90 mL/min/1.7 3m2 02/07/2025 7:46 AM CDT [facility] Comment:As of 2021, eG FR is calculated by the CKD-EPI creatinine equation without race adjustment. eGFR can be influenced by muscle mass, exercise, and diet. The reported eGFR is an estimation only and is only applicable if the renal function is stable. CREATININE 0.87 0.70 - 1.20 mg/dL 02/07/2025 7:46 AM CDT [facility] Blood BLOOD SPECIMEN / Unknown Venipuncture / Unknown 02/07/2025 7:04 AM CDT 02/07/2025 7:11 AM CDT Erick Lazaro MD CHEMISTRY Final Resu lt Performing Organization Address City/[facility]/ZIP Co de Phone Number [facility] [address] [place] [address], [place] * Magnesium AM (02/07/2025 7:04 AM CDT) [facility] MAGNESIUM 1.6 1.6 - 2.4 mg/dL 02/07/2025 7:46 AM CDT [facility] Blood BLOOD SPECIMEN / Unknown Venipuncture / Unknown 02/07/2025 7:04 AM CDT 02/07/2025 7:11 AM CDT Erick Lazaro MD CHEMISTRY Final Resu lt [facility] [address] [place] [address], [place] * PLATELET COUNT (02/06/2025 2:22 PM CDT) [facility] PLATELET COUNT 202 140 - 440 thou/cu mm 02/06/2025 2:45 PM CDT [facility] MPV 9.0 6.5 - 11.0 fL 02/06/2025 2:45 PM CDT [facility] Blood BLOOD SPECIMEN / Unknown Butterfly / Unknown 02/06/2025 2:22 PM CDT 02/06/2025 2:39 PM CDT Narrative [facility] - 02/06/2025 2:45 PM CDT Obtain before initiating IV heparin therapy if not done within previous 24 hours. Obtain before initiating IV heparin therapy if not done within previous 24 hours. Erick Lazaro MD HEMATOLOGY Final Resu lt [facility] [address] [address], [place] * APTT (02/06/2025 2:22 PM CDT) APTT 34 25 - 36 sec 02/06/2025 2:52 PM CDT [facility] Blood BLOOD SPECIMEN / Unknown Butterfly / Unknown 02/06/2025 2:22 PM CDT 02/06/2025 2:39 PM CDT Narrative [facility] - 02/06/2025 2:52 PM CDT Therapeutic Range: 59-89 seconds Erick Lazaro MD HEMATOLOGY Final Resu lt [facility] [address] [place] [address], [place] * (ABNORMAL) PROTIME-INR (02/06/2025 2:22 PM CDT) INR 1.3(H) <1.3 02/06/2025 2:52 PM CDT [facility] PROTIME 15.0(H) 10.6 - 12.4 sec 02/06/2025 2:52 PM CDT [facility] Blood BLOOD SPECIMEN / Unknown Butterfly / Unknown 02/06/2025 2:22 PM CDT 02/06/2025 2:39 PM [facility]T [facility] 02/06/2025 2:52 PM CDT Therapeutic [...] seconds if the patient is on UFH. Erick Lazaro MD HEMATOLOGY Final Resu lt [facility] [address] [place] [address], [place] * SCAN CORRESP-EKG RESULTS (02/06/2025 1:33 PM CDT) Narrative 02/06/2025 1:33 PM CDT Ordered by an unspecified provider. Other Clinical Staff OTHER Final Resul t * (ABNORMAL) C-reactive protein (02/06/2025 9:10 AM CDT) Only the most recent of3 resultswithin the time period is included. C-REACTIVE PROTEIN 12.4(H) <0.5 mg/dL 02/06/2025 9:49 AM CDT [facility] Blood BLOOD SPECIMEN / Unknown Venipuncture / Unknown 02/06/2025 9:10 AM CDT 02/06/2025 9:25 AM CDT Roz Jewell MD CHEMISTRY Final Result [facility] [address] [place] [address], [place] * TSH (01/14/2025 7:40 AM CDT) TSH 2.69 0.27 - 4.20 uIU/mL 01/14/2025 9:16 AM CDT [facility] Blood BLOOD SPECIMEN / Unknown Butterfly / Unknown 01/14/2025 7:40 AM CDT 01/14/2025 8:42 AM CDT Narrative [facility] - 01/14/2025 9:16 AM CDT In Adults, TSH values between 5.00 and 10.00 uIU/ml do not necessarily indicate the presence of Hypothyroidism. Correlation with clinical findings such as presence of goiter and/or Thyroperoxidase (TPO) Antibody may be helpful. For more information please refer to LUIGI 2004; 291: 228-238. Carmenza Quiroz DRUG INSPECTOR CHEMISTRY Final Resul t Performing Organization Address [facility] Co de Phone Number [facility] [address] [place] [phone] * ALT (SGPT) (01/14/2025 7:40 AM CDT) ALT (SGPT) 19 10 - 50 IU/L 01/14/2025 9:16 AM CDT [facility] Blood BLOOD SPECIMEN / Unknown Butterfly / Unknown 01/14/2025 7:40 AM CDT 01/14/2025 8:42 AM CDT Carmenza Quiroz NP CHEMISTRY Final Resul t Performing Organization Address [facility] Co de Phone Number [facility] [address] [place] [address] * ALK PHOSPHATASE (01/14/2025 7:40 AM CDT) ALK PHOSPHATASE 85 40 - 129 IU/L 01/14/2025 9:16 AM CDT [facility] Blood BLOOD SPECIMEN / Unknown Butterfly / Unknown 01/14/2025 7:40 AM CDT 01/14/2025 8:42 AM CDT Carmenza Quiroz DRUG INSPECTOR CHEMISTRY Final Resul t Performing Organization Address [facility]/ZIP Co de Phone Number [facility] [address] [place] [address] * (ABNORMAL) PRO-BNP (01/14/2025 7:40 AM CDT) [facility] PRO-BNP 1,544(H) <450 pg/mL 01/14/2025 9:19 AM CDT [facility] Blood BLOOD SPECIMEN / Unknown Butterfly / Unknown 01/14/2025 7:40 AM CDT 01/14/2025 8:42 AM CDT Narrative [facility] - 01/14/2025 9:19 AM CDT The [...] OUTS Final Resul t Performing Organization Address [facility]/ZIP Co de Phone Number [facility] [address] [place] [address] * LAB TRACKING EVENT (12/13/2024 3:58 PM CDT) Other (Other) Client Collect / Unknown 12/13/2024 3:58 PM CDT 12/13/2024 10:08 PM CDT us Sue Bailey MD LAB BILL ONLY Final Re sult Performing Organization Address [facility]/ZIP Co de Phone Number [facility] [address] [place] [address], * PATH TISSUE EXAM (12/13/2024 3:58 PM CDT) Case Report Pathology Report Case: [id number] Authorizing Provider: Sue Bailey MD Collected: 12/13/2024 1558 Ordering Location: [facility] Received: 12/14/2024 0832 Pathologist: Shay Noland MD Specimen: Left Buttock, left buttock pressure ulcer tissue 12/19/2024 1:42 PM CDT [facility] Final Diagnosis A) SOFT TISSUE, LEFT BUTTOCK, DEBRIDEMENT: Fibroadipose tissue with necrosis and foci of acute inflammation 12/19/2024 1:42 PM CDT [facility] at 1341 CDT Clinical Information Pressure ulcer on the left buttock. 12/19/2024 1:42 PM CDT [facility] Gross Description A) Received in formalin, labeled with the patient's name and L buttock pressure ulcer tissue, is a 7.5 x 5.5 x 3.3 cm aggregate of multiple irregular portions of sandoval-brown, dusky and ragged soft tissue. No lesions or masses are identified. [employer] sections are submitted in 1 cassette. JKG 12/17/2024 12/19/2024 1:42 PM CDT [facility] Microscopic Description The final diagnosis is based on microscopic examination of appropriate sections of all specimens. 12/19/2024 1:42 PM CDT [facility] Additional Information Interpreted at [facility] [employer] [facility] - [address], [place] [address] 12/19/2024 1:42 PM CDT [facility] Other (Left Buttock) 12/13/2024 3:58 PM CDT 12/14/2024 8:58 AM CDT Sue Bailey MD PATHOLOGY/CYTOLOGY Final Result [facility] [address] [address], * VITAMIN B12 (12/10/2024 7:05 AM CDT) VITAMIN B12 510 232 - 1,245 pg/mL 12/10/2024 12:14 PM CDT [facility] Blood BLOOD SPECIMEN / Unknown Venipuncture / Unknown 12/10/2024 7:05 AM CDT 12/10/2024 7:47 AM CDT Narrative [facility] - 12/10/2024 12:14 PM CDT Biotin supplements may cause clinically significant interference for this test assay. If interference is suspected, it is strongly recommended that biotin is discontinued for at least one week prior to retesting. us Carmenza Quiroz NP CHEMISTRY Final Resul t [facility] [address] [address], from Last 3 Months Additional Health Concerns Infection Onset Date Last Indicated MDRO Clearance Comment:Infection Control Note: Hx of ESBL, surveillance criteria met, no need for further testing or isolation precautions. Do not delete or resolve the Infection Flag. Anecdotal +ESBL 02/06/2025 02/06/2025 Insurance [employer] [facility] (Home[address] [address] [employer] [facility] Member Subscriber Plan / Payer (Ef fective 2024-Present) Name:Ren Ramirez Relation to Subscriber:Self Name:Ren Ramirez Payer ID:[id number] (NAIC) Type:Not on file Address: [place] [phone] Advance Directives Documents on File Type Date Recorded Patient [employer] Expl anation POLST 01/26/2023 * Full Code (Latest Code Status on File) Date Activated Date Inactivated Comments 02/06/2025 3:46 AM 02/07/2025 7:38 PM Question Answer Comments Code Status Discussion: Reviewed Preferences * Full Code Date Activated Date Inactivated Comments 02/06/2025 12:37 AM 02/06/2025 3:46 AM Question Answer Comments Code Status Discussion: Unable to Assess Preferences, Provider to review later Care Teams Wedding Planner Relationship Specialty Start Date End Date Clinic, No Pcp Or . PCP - General 07/31/23 Birdie Taveras, RN [address] [facility] [address] [place], [place] [phone] [employer] - [facility] Registered Nurse 07/24/23 Karrie Singer, RN [address] [facility] [address] [place], [place] [address] [employer] - [facility] Registered Nurse 07/24/23
--- OUTSIDE RECORDS SUMMARY | 2025-02-21 13:36 | XMS_ITS | Clinical Summary ---
Author Organization [facility] Address [address] [place] [address] Care Team Providers Care Optometric Tech Name Role Phone Jeff Reyes M.D. Primary Care Provider Source Comments Patient records contain information from all sites at [facility]. For routine questions regarding patient records, call [phone] during business hours, M-F 8:00 AM - 5:00 PM Central Time. 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 Assessment & Plan (07/04/2018 2:56 PM CARBONATION EQUIPMENT OPERATOR): Continue I&O catheterization as needed Multiple Sclerosis 06/03/2003 Assessment & Plan (07/04/2018 3:32 PM CARBONATION EQUIPMENT OPERATOR): -Continue to follow with Neurology for further recommendations Resolved Problems Problem Noted Date Diagnosed Date Resolved Date Sprain Ankle Initial Right 11/08/2022 0 11/09/2022 Obesity Unspecified 03/21/2019 11/10/19 23 Urinary Tract Infection Site Not Specified 07/04/2018 11/09/2022 Overview (07/04/2018): Completed ciprofloxacin 500 mg b.i.d. for an antibiotic course of 14 days (last dose on 06/08/2018) Assessment & Plan (07/04/2018 3:31 PM CARBONATION EQUIPMENT OPERATOR): -Patient denies any urinary symptoms today on exam. -Continue care cranberry 450 mg daily Failure Renal Acute (Acute Kidney Injury) 05/27/2018 10/19/2022 Non-ST Elevation Myocardial Infarction 05/26/2018 10/23/2019 Assessment & Plan (07/04/2018 10:14 AM CARBONATION EQUIPMENT OPERATOR): 1. Continue aspirin 81 mg daily 2. [...] Encounters Date Type Department Care Team Description 02/21/2025 Clinical Communication Department of Oncology in [place], [place] [address] [place] [address] Pablo Vo M.D. 02/04/2025 12:11 PM CDT - 02/04/2025 1:42 PM CDT Hospital Encounter Department of Radiology in [place] [id number] [place] [address] Anuel Nunn M.D. Cholecystitis Discharge Disposition: Home or Self Care 01/31/2025 Clinical Communication Department of Oncology in [place], [place] [address] [place] [address] Pablo Vo M.D. Nurse call back 01/23/2025 5:26 PM CDT - 01/24/2025 12:38 AM CDT Emergency [facility] [address] [place] [address] Ollie Walters M.D. 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 12/17/2024 Orders Only [facility]F [facility] [address] [place] [id number] Jeff Reyes M.D. Screening Cancer Colon 12/03/2024 Orders Only [facility]F [facility] [address] [place] [phone] Jeff Reyes M.D. Screening Cancer Colon from [...] drink = 0.6 oz pur e alcohol) [facility] Utilities Answer Date Recorded In the past 12 months has e [employer], oil, or water [employer] threatened to shut off services in your [...] Sex Assigned at Male 06/26/2018 4:20 PM CARBONATION EQUIPMENT OPERATOR Legal Sex Male 3:33 AM CARBONATION EQUIPMENT OPERATOR Gender Identity Not on file Sexual [...] Body Mass Index 34.23 09/15/2024 3:21 PM CARBONATION EQUIPMENT OPERATOR Plan of Treatment Upcoming Encounters Date Type Department Care Team (Late st Contact Info) Description 03/04/2025 9:00 AM CDT Appointment Department of Radiology in [place], [place] [address] [place] [phone] Pablo Vo M.D. [address] [place] [address] Health Maintenance Due Date Last Done [...] 11/12/2025 11/12/2024 Creatinine Level (Kidney Function Test) 02/18/2026 02/18/2025, 02/07/2025, 02/06/2025, Additional history exists Potassium Level 02/18/2026 02/18/2025, 01/21, 02/06/2025, Additional history exists Sodium Level 02/18/2026 02/18/2025, 01/21, 02/04/2025, Additional history exists Fasting Glucose for Diabetes Screening 02/19/2028 02/18/2025, 02/06/2025, 02/04/2025, Additional history exists DTaP,Tdap,and Td Vaccines (3 [...] this topic Medical Devices Implanted Type Area Public Relations Intern Device Identifier Shelf Expiration Date Model / Serial / Lot Scrw St 24pthrd 8.0x105 - [id number] Implanted:Qty : 1 on 12/15/2022 by Jana Don M.D. at [facility] Hardware e.g. pins/screws/ rods Right: [employer] [id number] / / Scrw Vthrd Fast 7.0x105 - [id number] Implanted:Qty : 2 on 12/15/2022 by Jana Don M.D. at [facility] Hardware e.g. pins/screws/ rods Right: [employer] [id number] [id number] / / Washr Flt 1.5x13 - [id number] Implanted:Qty : 4 on 12/15/2022 by Jana Don M.D. at [facility] Hardware e.g. pins/screws/ rods Right: Femur [...] Of Pauma Coronary Artery Without Angina Pectoris from Last [...] male with history of cholecystitis requiring 14 Azerbaijani cholecystostomy catheter, routine 3 month exchange COMPARISON: [...] Patient education provided by a care steam tender. Patient was ready to learn with no apparent learning barriers were identified. Post-procedure care explained; patient expressed understanding of the content. PROCEDURE DETAILS: Sedation: None. Sedation time: Not applicable. Estimated Blood Loss: Less than 10 mL. TECHNIQUE: Imaging guidance for catheter exchange: Fluoroscopy with permanent image storage Access side: Right lateral abdomen intercostal transhepatic Catheter: 14 Azerbaijani 25 cm multipurpose pigtail drain Technique: The indwelling catheter was injected with contrast. A guidewire was inserted through the catheter, and the catheter was exchanged for a new 14 Azerbaijani catheter. Contrast was injected confirming the location [...] Patient education provided by a care steam tender. Patient was ready to learn withno apparent learning barriers were identified. Post-procedure careexplained; patient expressed understanding of the content. PROCEDURE DETAILS: Sedation: None. Sedation time: Not applicable. Estimated Blood Loss: Less than 10 mL. TECHNIQUE: Imaging guidance for catheter exchange: Fluoroscopy with permanent imagestorage Access side: Right lateral abdomen intercostal transhepatic Catheter: 14 Azerbaijani 25 cm multipurpose pigtail drain Technique: The indwelling catheter was injected with contrast. A guidewirewas inserted through the catheter, and the catheter was exchanged for anew 14 Azerbaijani catheter. Contrast was injected confirming the location [...] ORDERABLES Fin al Result Performing Organization Address [facility] de Phone Number [facility] [address] [facility] [address] [place] [address] * Microscopic Automated (01/23/2025 8:37 PM CDT) Pathologist [facility] Microscopy Normal 01/23/2025 8:57 PM CDT DTL RBC <3 <3 /hpf 01/23/2025 8:57 PM CDT DTL WBC 1-3 /hpf 01/23/2025 8:57 PM CDT DTL Comment: ----REFERENCE VALUE---- <4 (Males) <11 (Females) Casts, Hyaline 11-20 /lpf 01/23/2025 8:57 PM CDT DTL Urine 01/23/2025 8:37 PM CDT 01/23/2025 8:49 PM CDT Chung Mehta M.D. LAB URINE ORDERABLES Fin al Result Performing Organization Address [facility] Co de Phone Number [facility] [address] [place], [place] [id number] [place] [address] [address] [place] [address] * pH, Urine (01/23/2025 8:37 PM CDT) pH, U 5.4 4.5 - 8.0 01/23/2025 9:0 3 PM CDT DTL Urine 01/23/2025 8:37 PM CDT 01/23/2025 8:49 PM CDT Chung Mehta M.D. LAB URINE ORDERABLES Fin al Result Performing Organization Address City/[facility]/ZIP Co de Phone Number [facility] [place] [address] [place] [address] * Osmolality, Urine (01/23/2025 8:37 PM CDT) Pathologist [facility] Osmolality, U 409 150 - 1150 mOsm/kg 01/23/2025 9:03 PM CDT DT Urine 01/23/2025 8:37 PM CDT 01/23/2025 8:49 PM CDT Chung Mehta M.D. LAB URINE ORDERABLES Fin al Result Performing Organization Address City/[facility]/ZIP Co de Phone Number [facility] [place] [address] [place] [address] * Urinalysis, with Microscopic: Urine, Catheter (01/23/2025 [...] ORDERABLES Fin al Result Performing Organization Address [facility]/ZIP Co de Phone Number [facility] [place] [address] [place] [address] * (ABNORMAL) Sedimentation Rate (01/23/2025 8:36 PM CDT) Sedimentation Rate, B 109(H) 3 - 28 mm/h 01/23/2025 9:29 PM CDT DTL Blood (Blood, Venous) 01/23/2025 8:36 PM CDT 01/23/2025 8:47 PM CDT Chung Mehta M.D. LAB BLOOD ADD-ON Final R esult Performing Organization Address [facility]/ZIP Co de Phone Number [facility] [place] [address] [place] [address] * (ABNORMAL) CRP (C-Reactive Protein) (01/23/2025 8:36 PM CDT) C-Reactive Protein (CRP), S 124.8(H) <5.0 mg/L 01/23/2025 9:28 PM CDT DTL Blood (Blood, Venous) 01/23/2025 8:36 PM CDT 01/23/2025 9:01 PM CDT Chung Mehta M.D. LAB BLOOD ADD-ON Final R esult Performing Organization Address City/[facility]/ZIP Co de Phone Number [facility] [place] [address] [place] [address] * Bacteria / Zenobia Culture, Blood #2 (01/23/2025 8:34 PM CDT) Only the most recent of2 resultswithin the time period is included. Pathologist [facility] Bacteria/Vannessa da Culture, Blood No growth after 5 days of incubation. 01/28/2025 9:02 PM CDT DTL Blood (Blood, Peripheral Draw) 01/23/2025 8:34 PM CDT 01/23/2025 8:50 PM CDT Comment:Specimen Source Site : Blood Chung Mehta M.D. LAB MICROBIOLOGY - GENER AL ORDERABLES Final Result Performing Organization Address [facility] Co de Phone Number [facility] [place] [address] [place] [address] * Lactate for Sepsis with Reflex (01/23/2025 8:32 PM CDT) [facility] Lactate, P 1.3 0.5 - 2.2 mmol/L 01/23/2025 8:59 PM CDT [facility] Blood (Blood, Venous) 01/23/2025 8:32 PM CDT 01/23/2025 8:44 PM CDT Chung Mehta M.D. LAB BLOOD NON ADD-ON Fin al Result Performing Organization Address City/[facility]/ZIP Co de Phone Number [facility] [place] [address] [place] [address], [facility] STMA [facility] [address] [place] [address] * CT Abdomen Pelvis with IV Contrast [...] * Lactate, B (01/23/2025 6:55 PM CDT) [facility] Lactate, B 1.2 0.5 - 2.2 mmol/L 01/23/2025 7:05 PM CDT [facility] Blood (Blood, Venous) 01/23/2025 6:55 PM CDT 01/23/2025 7:02 PM CDT Ollie Walters M.D. LAB BLOOD NON ADD-ON Final Res ult [place] [address] [place] [address], [facility] [address] [place] [address] * (ABNORMAL) CBC without Differential (01/23/2025 6:55 PM CDT) Pathologist [facility] Hemoglobin 10.6(L) 13.2 - 16.6 g/dL 01/23/2025 [...] BLOOD ADD-ON Final Result Performing Organization Address City/[facility]/ZIP Co de Phone Number [facility] [address] STMA [facility] [address] [place] [address] * Lipase (01/23/2025 6:55 PM CDT) Pathologist [facility] Lipase, S 16 13 - 60 U/L 01/23/2025 7: 42 PM CDT DTL Blood (Blood, Venous) 01/23/2025 6:55 PM CDT 01/23/2025 7:25 PM CDT us Ollie Walters M.D. LAB BLOOD ADD-ON Final Result Performing Organization Address City/[facility]/ZIP Co de Phone Number [facility] [address] [place] [address], [facility] DTL [facility] [address] [place] [address] * (ABNORMAL) Basic Metabolic Panel (01/23/2025 6:55 [...] Walters M.D. LAB BLOOD ADD-ON Final Result [address] [address], [place] [address] * ECG 12 Lead (01/23/2025 5:18 PM CDT) Ventricular Rate ECG/Min 79 BPM MUSE TX Interval 210 ms MUSE QRSD Interval 96 ms MUSE QT Interval 370 ms MUSE QTC Interval 424 ms MUSE P [place] 42 degrees MUSE R [place] -12 degrees MUSE T Wave [place] 47 degrees MUSE 01/23/2025 5:18 PM CDT [...] BLOOD ADD-ON Final Result Performing Organization Address City/State/[facility] Co de Phone Number - [facility] [address] [place] [address], [place] [employer] [facility] in [place] [address] [place] [address] from Last 3 Months or Most Recently Relevant to Health Maintenance Insurance MEDICA Advance Directives For more information, please contact: [phone] Documents on File Type Date Recorded Patient Hospital Scientist Expl anation Advance Directives 08/08/2024 6:58 AM [...] Answer Comments Full Code: Discussed Care Teams Optometric Tech Relationship Specialty Start Date End Date Jeff Reyes M.D. [address] [place] [phone] PCP - General 03/14/24
--- OUTSIDE RECORDS SUMMARY | 2025-02-21 13:36 | XMS_ITS | Encounter Summary ---
Author Organization [facility] Address [address] [place] [address] Care Team Providers Care Director Of Rehabilitation And Wellness Name Role Phone Jeff Reyes M.D. Primary Care Provider [phone] Encounter Details Date Type Department Care Team (Late st Contact Info) Description 02/21/2025 Clinical Communication Department of Oncology in [place], [place] [address] [place] [phone] Pablo Vo M.D. [address] [place] [phone] Social History Tobacco Use Types Packs/Day Years [...] your living situation today? I have a [facility] place to live 11/08/2024 Education Answer Date Recorded What is the highest level of school you have completed or the highest degree you have received? 12th grade 10/18/2022 Sex and Gender Information Value Date Recorded Sex Assigned at Male 06/26/2018 4:20 PM MAGISTERIAL DISTRICT JUDGE Legal Sex Male 3:33 AM MAGISTERIAL DISTRICT JUDGE Gender Identity Not on file Sexual Orientation Not on file documented as of this encounter Plan of Treatment Upcoming Encounters Date Type Department Care Team (Late st Contact Info) Description 03/04/2025 9:00 AM CDT Appointment Department of Radiology in [place], [place] [address] [place] [address] Pablo Vo M.D. [address] [place] [address] documented as of this encounter Visit Diagnoses Not on filedocumented in this encounter Additional Health Concerns Assessment Noted Time PHQ-9 Depression Total Score: 10 018 11:00 AM CDT documented as of this encounter Care Teams Director Of Rehabilitation And Wellness Relationship Specialty Start Date End Date Jeff Reyes M.D. [address] [place] [address] PCP - General 03/14/24 documented as of this encounter
--- OUTSIDE RECORDS SUMMARY | 2025-02-21 13:37 | XMS_ITS | Encounter Summary ---
Author Organization [place] Address [facility] [place] [address] Care Team Providers Care Tool And Die Assembler Name Role Phone Unavailable Primary Care Provider Unavailabl e Reason for Referral * Consultation (Routine) - Pending Review Specialty Diagnoses / Procedures Referred By Jono t Referred To Contact Infectious Diseases Diagnoses Pressure ulcer Stella Mejia MD [address] [place] [address] Phone: tel: fax: Referral ID Status Reason Start Date Expiration Date V isits Requested Visits Authorized [id number] Pending Review 01/16/2025 01/16/2026 1 1 Question Answer Is the patient a transplant or pre-transplant patient? No Reason for Referral: Orthopedic Infections Patient Scheduling Instructions: Please call [facility] to schedule at [phone]. [facility] will call you to coordinate your care as prescribed by the provider. If you don t hear from a customer development representative within 2 business days, please call . Additional Information: Hospitalized from 01/03-01/09 for sepsis and BISHOP. Found to have worsening of the left upper pressure wound and was debrided in the OR. Referring to [facility] for any ongoing antibiotic needs Comments Referral Transcribed by external fax Provider: Stella Mejia affiliated with [facility] at [address] [place] [address]. VA: No If yes was is the VA Authorization Number: Phone number: [phone] Fax number: [phone] Please be aware that coverage of these services is subject to the terms and limitations of your health insurance plan. Call member services at your health plan with any benefit or coverage questions. Please call [facility] to schedule at [phone]. m [facility] will call you to coordinate your care as prescribed by the provider. If you don t hear from a customer development representative within 2 business days, please call . 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
--- OUTSIDE RECORDS SUMMARY | 2025-02-21 13:37 | XMS_ITS | Clinical Summary ---
Author Organization [place] Address [facility] [place] [address] Care Team Providers Care Radio Equipment Repairer Name Role Phone Bijan Crawford Primary Care Provider [phone] Allergies Active Allergy Reactions Criticality Noted Date Comments Haemophilus Influenzae Other (See Comments) High Vancomycin Other (See Comments) Medium 05/26/2018 Red Man Syndrome Red Man Syndrome Medications acetic acid 0.25 % irrigation Irrigate with as directed. Active allopurinol (ZYLOPRIM) 100 MG tablet Take 100 mg by mouth daily. Active atorvastatin (LIPITOR) 80 MG tablet Take 80 mg by mouth at bedtime. 5 Active bacitracin 500 UNIT/GM external ointment Apply topically 2 times daily. on affected areas Active baclofen (LIORESAL) 10 MG tablet Take 10 mg by mouth. Active TUMS 500 MG chewable tablet Take 1,000 mg by mouth. Active DEBROX 6.5 % otic solution Place 5 drops in ear(s). Active VITAMIN D-[address] 25 MCG (1000 UT) tablet Take 25 mcg by mouth daily. 5 Active clotrimazole (LOTRIMIN) 1 % external cream Apply topically. 4 Active diclofenac (VOLTAREN) 1 % topical gel Apply 2 g topically. 5 Active ferrous sulfate (FEROSUL) 325 (65 Fe) MG tablet Take 325 mg by mouth every 48 hours. Active fluticasone (FLONASE) 50 MCG/ACT nasal spray 5 Active furosemide (LASIX) 40 MG tablet Take 40 mg by mouth. Active latanoprost (XALATAN) 0.005 % ophthalmic solution Place 1 drop into both eyes at bedtime. Active lisinopril (ZESTRIL) 40 MG tablet Take 40 mg by mouth daily. Active metFORMIN (GLUCOPHAGE XR) 500 MG 24 hr tablet Take 1,000 mg by mouth. Active metoprolol succinate ER (TOPROL XL) 100 MG 24 hr tablet Take 100 mg by mouth daily. Active oxyCODONE (ROXICODONE) 5 MG tablet Take 5 mg by mouth every 6 hours as needed for pain. Active pantoprazole (PROTONIX) 40 MG EC tablet Take 40 mg by mouth. Active polyethylene glycol (MIRALAX) 17 g packet Take 1 packet by mouth. Active SENNA-TIME 8.6 MG tablet Take 8.6 mg by mouth. Active apixaban ANTICOAGULANT (ELIQUIS) 5 MG tablet Take 5 mg by mouth. Active acetaminophen (TYLENOL) 500 MG tablet Take 1,000 mg by mouth. Active Encounters Date Type Department Care Team Description 02/19/2025 3:00 PM CDT Office Visit [facility] Infectious Disease [address] [place] [address] [address] [place] [address] Rl Evans MD Pressure injury of left buttock, stage 4 (H) 02/19/2025 Travel 02/12/2025 Medical Correspondence [address] [place] [address] Scan, Non-Provider [facility] 01/23/2025 Medical Correspondence [address] [place] [address] Scan, Non-Provider 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 Gender Identity Not on file Sexual [...] - - Body Mass Index - - Plan of Treatment Health Maintenance Due Date Last Done Comments ADVANCE CARE PLANNING 1950 ANNUAL REVIEW OF HM ORDERS 1950 CT COLONOGRAPHY 1950 DIABETES SCREENING 1950 FIT 1950 FLEX SIG 1950 LIPID 1950 URIC ACID 1950 sDNA (Cologuard) 1950 COLONOSCOPY 01/04/1960 COLORECTAL CANCER SCREENING 01/04/1960 HEPATITIS C SCREENING 01/04/1968 FALL RISK ASSESSMENT 2015 MEDICARE ANNUAL WELLNESS VISIT 2015 PHQ-2 (once per calendar year) 2024 INFLUENZA VACCINE (#1) 2025 , 05/16/2023, 05/08/2003, Additional history exists DTAP/TDAP/TD VACCINE (3 - Td or Tdap) 04/08/2029 04/08/2019, 08/21/2009, 08/16/1999 ZOSTER VACCINE Completed 03/09/2018, 12/22, 08/21/2009 PNEUMOCOCCAL VACCINE 50+ YEARS Completed 03/21/2019, 04/21/2015, 08/03/2011 RSV VACCINE Completed 05/17/2024 COVID-19 VACCINE Completed 12/04/2024, , 11/21/2023, Additional history exists AORTIC ANEURYSM SCREENING (SYSTEM ASSIGNED) Completed 01/23/2025, 09/15/2024, 09/02/2024, Additional history exists HPV VACCINE (No Doses Required) Completed MENINGITIS VACCINE Aged Out No longer eligible based on patient's age to complete this topic Procedures Procedure Name Priority Date/Time Associated Diagnosis Comments MICROBIOLOGY ISOLATE REFERRAL Routine 01/05/2025 11:40 AM CDT LAB RESULT - HIM SCAN 01/05/2025 12:[address] IMAGING - HIM SCAN 2025 12:00 AM CDT MICROBIOLOGY ISOLATE REFERRAL Routine 12/12/2024 4:15 PM CDT XRAY IMAGING - HIM SCAN 12/11/2024 12:00 AM CDT from Last 3 Months Results * (ABNORMAL) Microbiology Isolate Referral (01/05/2025 11:40 AM CDT) Only the most recent of2 resultswithin the time period is included. Culture Streptococcus anginosus(A) 01/09/2025 10:54 AM CDT [facility] Comment:This organism is caitlyn ceptible to ampicillin, penicillin, vancomycin and the cephalosporins. If treatment is required and your patient is allergic to penicillin, contact the microbiology lab within 5 days to request susceptibility testing. Swab STRUCTURE OF LEFT BUTTOCK / Unknown Non-blood Collection / Unknown 01/05/2025 11:40 AM CDT 01/08/2025 2:31 PM CDT Patricia Randall LAB - MICRO GENERAL ORDERABLE S Final Result [facility] Inf. Diseases Diag. Lab [address] [facility] [place] [address], [facility] * Lab Result - HIM Scan (01/05/2025 12:00 AM CDT) 01/05/2025 us Provider Outside NON-BEAKER LAB TESTING Final Result * CT Imaging - HIM Scan (2025 12:00 AM CDT) Anatomical Region Laterality Modality Computed Tomogra phy 2025 us Provider Outside [facility] CT ORDERABLES Final Result * Xray Imaging - HIM Scan (12/11/2024 12:00 AM CDT) Anatomical Region Laterality Modality Other 12/11/2024 us Provider Outside IMG DIAGNOSTIC IMAGING ORDERABL ES Final Result from Last 3 Months Insurance [email or web address] Care Teams Radio Equipment Repairer Relationship Specialty Start Date End Date Bijan Crawford [address] [place] [address] PCP - General Family Medicine 01/20/25
--- OUTSIDE RECORDS SUMMARY | 2025-02-21 13:37 | XMS_ITS | Encounter Summary ---
Author Organization [facility] Address [address] [place] [address] Care Team Providers Care Whiteprinting Machine Operator Name Role Phone Jeff Reyes M.D. Primary Care Provider [phone] Encounter Details Date Type Department Care Team (Latest Contact Info) Description 08/07/2024 Intake [facility] Social History Tobacco Use Types Packs/Day Years Used Date Smoking Tobacco: Former Cigarettes Q uit: 1977 Passive Smoke Exposure: Never Alcohol Use Standard Drinks/Week Comments Not Currently 1 (1 standard drink = 0.6 oz pur e alcohol) [facility] Utilities Answer Date Recorded In the past 12 months has e [employer], gas, oil, or water [employer] threatened to shut off services in your [...] living situation today? I have a [facility] place to live 11/08/2024 Education Answer Date Recorded What is the highest level of school you have completed or the highest degree you have received? 12th grade 10/18/2022 Sex and Gender Information Value Date Recorded Sex Assigned at Male 06/26/2018 4:20 PM RITUAL CIRCUMCISER Legal Sex Male 3:33 AM RITUAL CIRCUMCISER Gender Identity Not on file Sexual Orientation Not on file documented as of this encounter Plan of Treatment Upcoming Encounters Date Type Department Care Team (Late st Contact Info) Description 03/04/2025 9:00 AM CDT Appointment Department of Radiology in [place], [place] [address] [address] Pablo Vo M.D. [address] [place] [address] documented as of this encounter Visit Diagnoses Not on filedocumented in this encounter Additional Health Concerns Infection Onset Date Last Indicated Resolved Time MDR GNB 10/24/2024 10/24/2024 10/27/2024 6:33 AM CDT Assessment Noted Time PHQ-9 Depression Total Score: 10 018 11:00 AM CDT documented as of this encounter Care Teams Whiteprinting Machine Operator Relationship Specialty Start Date End Date Jeff Reyes M.D. [address] [place] [id number] PCP - General 03/14/24 documented as of this encounter
--- OUTSIDE RECORDS SUMMARY | 2025-02-21 13:37 | XMS_ITS | Patient Health Record ---
Author Organization [facility] Address [address] [facility] [address] [place] [address] Care Team Providers Care Smoke Control Supervisor Name Role Phone Rubén Paez MD Primary Care Provider Melody Sondra Chenursuzla Unavailable [phone] Reason For Referral No Information Social History Tobacco Use: Social History Observation Description Date Details (start date - stop date) Former Smoker NA - NA Tobacco Use/Smoking Question Answer Notes Are you a former smoker Section Notes: FAMILY HISTORY: HISTORY OF FAMILY PSYCH: Problems Problem Type SNOMED Code ICD Code Onset Dates Problem Status W/U Status Risk Notes Problem Tinea unguium (703138677) Tinea unguium (B35.1) Active confirmed Problem 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 confirmed Problem 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 Problem Pressure injury of right buttock stage III (disorder) (7070785070331 4) Pressure ulcer of right buttock, stage 3 (L89.313) Active confirmed Problem Pressure injury of right heel stage IV (disorder) (9855524846119 7) Pressure ulcer of right heel, stage 4 (L89.614) Active confirmed Plan Of Treatment No Information Insurance Providers Payer Name Payer Address Payer Phone Subscriber Number Group Number Insured Name Patient Relationship to Insured Coverage Start Date Coverage End Date [employer] [id number] (Government Programs) [address] [address] [place], [place] [id number] Ren Ramirez Self - patient is the insured 7 [facility] Government Services/Med icare [address] [place] [address] [id number] Ren Ramirez Self - patient is the insured 3
--- OUTSIDE RECORDS SUMMARY | 2025-02-21 13:37 | XMS_ITS | Encounter Summary ---
Author Organization [place] Address [facility] [place] [address] Care Team Providers Care Highballer Name Role Phone Bijan Crawford Primary Care Provider [phone] Encounter Details Date Type Department Care Team (Latest Contact Info) Description 02/12/2025 Medical Correspondence [facility] Information Management [address] [facility] [address] [address] Scan, Non-Provider [facility] Social History Tobacco Use Types Packs/Day Years Used Date Smoking Tobacco: Never Assessed Sex and Gender Information Value Date Recorded Sex Assigned at Not on file Legal Sex Male 2:17 PM BLOW TORCH OPERATOR Gender Identity Not on file Sexual Orientation Not on file documented as of this encounter Plan of Treatment Not on file documented as of this encounter Visit Diagnoses Not on filedocumented in this encounter Care Teams Highballer Relationship Specialty Start Date End Date Bijan Crawford [address] [place] [address] PCP - General Family Medicine 01/20/25 documented as of this encounter
--- OUTSIDE RECORDS SUMMARY | 2025-02-21 13:37 | XMS_ITS | Encounter Summary ---
Author Organization [place] Address [facility] [place] [address] Care Team Providers Care Dust Mixer Name Role Phone Bijan Crawford Primary Care Provider [phone] Encounter Details Date Type Department Care Team ([facility] st Contact Info) Description 01/23/2025 Medical Correspondence [facility] Health Information Management [address] [facility] [address] [place] [address] Scan, Non-Provider [facility] Social History Tobacco Use Types Packs/Day Years Used Date Smoking Tobacco: Never Assessed Sex and Gender Information Value Date Recorded Sex Assigned at Not on file Legal Sex Male 2:17 PM RESIDENCY PROGRAM COORDINATOR Gender Identity Not on file Sexual Orientation Not on file documented as of this encounter Plan of Treatment Not on file documented as of this encounter Visit Diagnoses Not on filedocumented in this encounter Care Teams Dust Mixer Relationship Specialty Start Date End Date Bijan Crawford [facility] [address] [facility] [address] [place] [address] PCP - General Family Medicine 01/20/25 documented as of this encounter
--- OUTSIDE RECORDS SUMMARY | 2025-02-21 13:37 | XMS_ITS | Encounter Summary ---
Author Organization [place] Address [address] [place] [address]. [place] [address] Care Team Providers Care Concert Or Lecture Hall Manager Name Role Phone Bijan Crawford Primary Care Provider [phone] Encounter Details Date Type Department Care Team (Latest Contact Info) Description 02/19/2025 Travel Social History Tobacco Use Types Packs/Day Years Used Date Smoking Tobacco: Former Cigarettes Q uit: 07/24/1971 Smokeless Tobacco: Never Sex and Gender Information Value Date Recorded Sex Assigned at Not on file Legal Sex Male 2:17 PM FRAME ALIGNER Gender Identity Not on file Sexual Orientation Not on file documented as of this encounter Plan of Treatment Not on file documented as of this encounter Visit Diagnoses Not on filedocumented in this encounter Care Teams Concert Or Lecture Hall Manager Relationship Specialty Start Date End Date Bijan Crawford [address] [place] [address] PCP - General Family Medicine 01/20/25 documented as of this encounter
[2025-02-21] MEDS: 0.9 % SODIUM CHLORIDE 500 ML 500 ML 1000 ML IV (14:20)
[2025-02-21] MEDS: MEROPENEM 1 GM in 0.9 % SODIUM CHLORIDE Mini-bag 100 ML IVPB (14:29)
[2025-02-21] MEDS: LACTATED RINGERS 1000 ML 1,000 ML IV (16:09)
--- NOTE | 2025-02-21 16:56 | PM.GSCN ---
History of Present Illness Consult details Date Seen: 02/21/25 Consult date: 02/21/25 Narrative: Ren is a 75-year-old male known to our [facility] for multiple readmissions for sepsis from osteomyelitis of the pelvis. Currently undergoing wound cares for ischial tuberosity and sacral wounds as well as hyperbaric oxygen therapy for chronic osteomyelitis. He lives at [facility]. EMS was called this morning because during his morning check in he appeared to be slurring his speech. He was later moaning and nonverbal. He was brought to [facility]. He underwent workup for sepsis and stroke. Ren complains of pain in his back. He also has pain in his arm but is unable to tell me which. He does seem somewhat confused on my exam though is conversant. He did see Infectious Disease this week at the [facility]. This report is pending. He has not been on antibiotics the last couple of weeks. He has a cholecystostomy tube which was placed at [facility]. He is supposed undergo cholecystectomy at some point. This was delayed because he also developed bilateral PEs and is on anticoagulation. Per his daughter at our last wound clinic visit, she stated that he had a repeat CT scan of his chest that showed the clot was gone. [facility] Medical History Chronic anticoagulation ?Z79.01 - [facility] (current) use of anticoagulants (ICD-10) History of pulmonary embolism ?Z86.711 - Personal history of pulmonary embolism (ICD-10) Paraplegia ?G82.20 - Paraplegia, unspecified (ICD-10) Lymphedema ?I89.0 - Lymphedema, not elsewhere classified (ICD-10) Diabetes mellitus ?E11.9 - Type 2 diabetes mellitus without complications (ICD-10) Stage III pressure ulcer of sacral region ?L89.153 - Pressure ulcer of sacral region, stage 3 (ICD-10) Stage III pressure ulcer of buttock ?L89.303 - Pressure ulcer of unspecified buttock, stage 3 (ICD-10) Pressure ulcer of coccygeal region, stage 1 ?L89.151 - Pressure ulcer of sacral region, stage 1 (ICD-10) Neurogenic bowel ?K59.2 - Neurogenic bowel, not elsewhere classified (ICD-10) Hyperuricemia ?E79.0 - Hyperuricemia without signs of inflammatory arthritis and tophaceous disease (ICD-10) Hyperlipidemia ?E78.5 - Hyperlipidemia, unspecified (ICD-10) Hypertension ?I10 - Essential (primary) hypertension (ICD-10) Coronary artery disease ?I25.10 - Atherosclerotic heart disease of [place] coronary artery without angina pectoris (ICD-10) Fracture, intertrochanteric, right femur ?S72.141A - Displaced intertrochanteric fracture of right femur, initial encounter for closed fracture (ICD-10) Sleep apnea ?G47.30 - Sleep apnea, unspecified (ICD-10) Eason catheter in place ?Z97.8 - Presence of other specified devices (ICD-10) Neurogenic bladder ?N31.9 - Neuromuscular dysfunction of bladder, unspecified (ICD-10) Obesity ?E66.9 - Obesity, unspecified (ICD-10) Multiple sclerosis ?G35 - Multiple sclerosis (ICD-10) Surgical History H/O insertion of cholecystostomy tube ?Z98.890 - Other specified postprocedural states (ICD-10) Family History Father Coronary artery disease High blood pressure High cholesterol Sleep apnea Social History Narrative: Resident of [facility]. Daughter Malika is healthcare power of recovery coordinator. Code status is DNR. Remote history of smoking What is your current living situation?: I presently have a place to live Problems where you live: no known problems Problems where you live details: NA In the past 12 months, utilities in danger of being shut off: no In past 12 months, lack of transportation kept you from medical appts, meetings, work, or getting things needed for daily living: no In the past 12 mos, have been you worried that your food would run out before you had money to buy more?: never true In the past 12 mos, the food you bought just didn't last and you didn't have money to buy more?: never true Highest level of school completed/degree received: 12th grade, no diploma Smoking Status: Former smoker What tobacco products do you use: cigarettes Smoking quit date/years: >15 years ago Do you use any of these nicotine containing products: None Second hand tobacco smoke exposure: No How often do you have a drink containing alcohol: never How often do you have six or more drinks on one occasion: Never AUDIT-C Alcohol total score: 0 Non-prescribed substance use: denies use Caffeine: Yes (tea and coffee) How often does anyone, including family, friends and others, physically hurt you: unable to answer How often does anyone, including family, friends and others, insult or talk down to you: unable to answer How often does anyone, including family, friends and others, threaten you with harm: unable to answer How often does anyone, including family, friends and others, scream or curse at you: unable to answer service: No Meds Home Medications and Allergies Home Medications ?Medication ?Instructions ?Recorded ?Confirmed ?Type calcium carbonate (Zachary-Gest 400 mg PO BID PRN 08/07/24 02/21/25 History Antacid) cholecalciferol (vitamin D3) 25 25 mcg PO DAILY 08/07/24 02/21/25 History mcg (1,000 unit) tablet (Vitamin D3) furosemide 40 mg tablet 40 mg PO DAILY 08/07/24 02/21/25 History lisinopril 40 mg tablet 40 mg PO DAILY 08/07/24 02/21/25 History metoprolol succinate 100 mg 100 mg PO DAILY 08/07/24 02/21/25 History tablet,extended release 24 hr pantoprazole 40 mg tablet,delayed 40 mg PO BID 08/07/24 02/21/25 History release polyethylene glycol 3350 17 17 g PO DAILY 08/07/24 02/21/25 History gram/dose oral powder apixaban 5 mg tablet (Eliquis) 5 mg PO BID 11/16/24 02/21/25 History atorvastatin 80 mg tablet 80 mg PO HS 11/16/24 02/21/25 History bacitracin 500 unit/gram topical 1 applic topical BID 11/16/24 02/21/25 History ointment baclofen 10 mg tablet 10 mg PO BID 11/16/24 02/21/25 History latanoprost 0.005 % eye drops 1 drp ophthalmic (eye) HS 11/16/24 02/21/25 History sennosides 8.6 mg-docusate sodium 2 tab-cap PO DAILY PRN 11/16/24 02/21/25 History 50 mg tablet (Senna Plus) carbamide peroxide 6.5 % ear drops 5 drp otic (ear) Q7D PRN 11/17/24 02/21/25 History (Ear Wax Removal Kit) allopurinol 100 mg tablet 100 mg PO DAILY #30 tabs 11/19/24 02/21/25 Rx clotrimazole 1 % topical cream 1 applic topical BID 12/12/24 02/21/25 History acetic acid 0.25 % irrigation See Rx Instructions .Route BID 01/04/25 02/21/25 History solution ferrous sulfate 325 mg (65 mg 325 mg PO Q48H 01/04/25 02/21/25 History iron) tablet metformin 500 mg tablet,extended 1,000 mg PO QPM 01/04/25 02/21/25 History release 24 hr oxycodone 5 mg tablet 5 mg PO Q6H PRN 01/04/25 02/21/25 History sennosides 8.6 mg tablet (senna) 17.2 mg PO DAILY PRN 01/28/25 02/21/25 History ondansetron HCl 4 mg tablet 4 mg PO BID 02/21/25 02/21/25 History Allergies Allergy/AdvReac Type Severity Reaction Status Date / Time Haemophilus B polysaccharide Allergy Unknown Verified 02/05/25 15:37 conj w vancomycin Allergy Unknown Verified 02/05/25 15:37 Exam Narrative: Exam Narrative: General: Patient is in no acute distress. He is frail appearing. He is alert. CV: Regular rate Abdomen: Cholecystostomy tube in place. Indwelling Eason in place Skin: On his back he has 2 ulcers, 1 in the ischial tuberosity. Dressing is taken down. This does have an odor. This is because of stool soilage. The wound itself actually looks fairly healthy with mostly pink granulation tissue throughout. There are only a few spotty areas of discoloration.. Wound VAC taken off his left sacral wound. There is a slight odor here, however the wound itself looks healthy. It is granulating in well. This does not probe down to bone. He has an unstageable coccygeal ulcer which is new. This measures 2 cm. The skin of the coccyx is reddened from maceration. No cellulitis is noted. Const: Vital Signs, click to edit/add: Vital Signs - 24 hr 02/21/25 12:30 02/21/25 12:58 02/21/25 13:00 Temperature 96.0 F L Pulse Rate 82 Pulse Rate [Pulse Oximeter] 81 Respiratory Rate 16 12 10 L Blood Pressure Blood Pressure [Ri ght Upper Arm] 123/58 L Pulse Oximetry 99 98 Oxygen Delivery Me thod Room Air 02/21/25 13:15 02/21/25 13:17 02/21/25 13:30 Temperature Pulse Rate 84 79 82 Pulse Rate [Pulse Oximeter] Respiratory Rate 12 9 L Blood Pressure 121/55 L Blood Pressure [Ri ght Upper Arm] Pulse Oximetry 91 94 91 Oxygen Delivery Me thod 02/21/25 13:32 02/21/25 13:50 02/21/25 14:00 Temperature Pulse Rate 80 87 82 Pulse Rate [Pulse Oximeter] Respiratory Rate 11 L 9 L Blood Pressure 101/87 Blood Pressure [Ri ght Upper Arm] Pulse Oximetry 92 96 94 Oxygen Delivery Me thod 02/21/25 14:02 02/21/25 14:15 02/21/25 14:30 Temperature Pulse Rate 86 83 87 Pulse Rate [Pulse Oximeter] Respiratory Rate 10 L 12 Blood Pressure 105/49 L Blood Pressure [Ri ght Upper Arm] Pulse Oximetry 94 93 95 Oxygen Delivery Me thod 02/21/25 14:32 02/21/25 14:45 02/21/25 15:00 Temperature Pulse Rate 86 85 83 Pulse Rate [Pulse Oximeter] Respiratory Rate 12 11 L 11 L Blood Pressure 113/77 Blood Pressure [Ri ght Upper Arm] Pulse Oximetry 96 93 93 Oxygen Delivery Me thod 02/21/25 15:02 02/21/25 15:03 02/21/25 15:15 Temperature Pulse Rate 85 84 82 Pulse Rate [Pulse Oximeter] Respiratory Rate 13 10 L Blood Pressure 96/44 L Blood Pressure [Ri ght Upper Arm] Pulse Oximetry 92 94 94 Oxygen Delivery Me thod 02/21/25 15:30 02/21/25 15:32 02/21/25 15:45 Temperature Pulse Rate 92 93 86 Pulse Rate [Pulse Oximeter] Respiratory Rate 15 19 21 Blood Pressure 120/86 Blood Pressure [Ri ght Upper Arm] Pulse Oximetry 95 95 96 Oxygen Delivery Me thod 02/21/25 16:00 02/21/25 16:02 02/21/25 16:03 Temperature Pulse Rate 91 90 91 Pulse Rate [Pulse Oximeter] Respiratory Rate 17 22 11 L Blood Pressure 125/55 L Blood Pressure [Ri ght Upper Arm] Pulse Oximetry 95 93 94 Oxygen Delivery Me thod 02/21/25 16:15 02/21/25 16:30 02/21/25 16:33 Temperature Pulse Rate 90 94 95 Pulse Rate [Pulse Oximeter] Respiratory Rate 13 14 13 Blood Pressure 97/47 L Blood Pressure [Ri ght Upper Arm] Pulse Oximetry 94 94 94 Oxygen Delivery Me thod 02/21/25 16:34 02/21/25 16:45 Temperature 96.5 F L Pulse Rate 94 92 Pulse Rate [Pulse Oximeter] Respiratory Rate 13 Blood Pressure Blood Pressure [Ri ght Upper Arm] Pulse Oximetry 94 94 Oxygen Delivery Me thod Results Labs Labs: Abnormal lab results 02/21/25 Range/Units 12:48 RBC 3.86 L (4.30-5.90) m/uL Hgb 9.9 L (13.5-17.5) gm/dL Hct 32.0 L (37.0-53.0) % MCHC 31 L (32-36) gm/dL RDW Coeff of Rey 17.4 H (11.5-15.5) % Neut % (Auto) 80.7 H (42.0-72.0) % Lymph % (Auto) 11.2 L (20-44) % Neut # (Auto) 8.80 H (1.7-7.0) K/uL VBG pCO2 36 L (40-50) mmHG VBG HCO3 19 L (21-28) mmol/L Sodium 133 L (135-149) mmol/L Potassium 5.3 H (3.6-5.1) mmol/L Carbon Dioxide 17 L (20-32) mmol/L BUN 52 H (7-30) mg/dL Creatinine 2.7 H (0.5-1.5) mg/dL Glucose 157 H (60-115) mg/dL Lactate 2.0 H (0.5-1.9) mmol/L Direct Bilirubin 0.6 H (0.0-0.5) mg/dL AST 113 H (12-35) U/L ALT 84 H (4-50) U/L Alkaline Phosphatase 437 H (40-150) U/L C-Reactive Protein 19.1 H (0.5-1.0) mg/dL Diabetes panel 02/21/25 Range/Units 12:48 Sodium 133 L (135-149) mmol/L Potassium 5.3 H (3.6-5.1) mmol/L Chloride 105 (96-114) mmol/L Carbon Dioxide 17 L (20-32) mmol/L BUN 52 H (7-30) mg/dL Creatinine 2.7 H (0.5-1.5) mg/dL Glucose 157 H (60-115) mg/dL Calcium 9.7 (8.4-10.6) mg/dL AST 113 H (12-35) U/L ALT 84 H (4-50) U/L Alkaline Phosphatase 437 H (40-150) U/L Total Protein 6.8 (6.0-8.3) g/dL Albumin 3.5 (3.3-5.0) g/dL Calcium panel 02/21/25 Range/Units 12:48 Calcium 9.7 (8.4-10.6) mg/dL Albumin 3.5 (3.3-5.0) g/dL Pituitary panel 02/21/25 Range/Units 12:48 Sodium 133 L (135-149) mmol/L Potassium 5.3 H (3.6-5.1) mmol/L Chloride 105 (96-114) mmol/L Carbon Dioxide 17 L (20-32) mmol/L BUN 52 H (7-30) mg/dL Creatinine 2.7 H (0.5-1.5) mg/dL Glucose 157 H (60-115) mg/dL Calcium 9.7 (8.4-10.6) mg/dL Adrenal panel 02/21/25 Range/Units 12:48 Sodium 133 L (135-149) mmol/L Potassium 5.3 H (3.6-5.1) mmol/L Chloride 105 (96-114) mmol/L Carbon Dioxide 17 L (20-32) mmol/L BUN 52 H (7-30) mg/dL Creatinine 2.7 H (0.5-1.5) mg/dL Glucose 157 H (60-115) mg/dL Calcium 9.7 (8.4-10.6) mg/dL Total Bilirubin 0.9 (0.1-1.5) mg/dL AST 113 H (12-35) U/L ALT 84 H (4-50) U/L Alkaline Phosphatase 437 H (40-150) U/L Total Protein 6.8 (6.0-8.3) g/dL Albumin 3.5 (3.3-5.0) g/dL All other labs normal. Imaging Additional studies: CT head: INDICATION: APHASIA, SLURRED SPEECH, AMS TECHNIQUE: CT of the head was performed without IV contrast. COMPARISON: 08/20/2024. FINDINGS: Parenchyma: No acute hemorrhage, infarction, or mass. Moderate confluent periventricular white matter hypoattenuation is nonspecific and is favored to represent chronic small vessel ischemic disease. Ventricles and extra-axial spaces: Moderate involutional changes. Visualized paranasal sinuses: Clear. Mastoid air cells: Partially opacified on the right. Bones: No focal abnormality. Additional comment: None. IMPRESSION: No acute hemorrhage or large territory infarct. Findings discussed with Dr. Sanz at 12:52 p.m. on 02/21/2025. Dictated by Walt Russell MD @ 02/21/2025 12:53:[address] chest abdomen pelvis: IMPRESSION: 1. Improvement in minimal right lower lobe ground-glass and nodularity compared to a chest CT on 02/05/2025, likely aspiration. 2. Decompressed gallbladder with a cholecystostomy in place. Persistent indeterminate thickening and stranding of the gallbladder likely reflects chronic cholecystitis. 3. Indeterminate urinary bladder wall thickening with a Eason catheter in place. Recommend correlation with urinalysis. 4. Redemonstrated large soft tissue defect along the left ischial tuberosity with evidence of chronic osteomyelitis. Smaller soft tissue defect along the left posterior iliac bone with unchanged subtle sclerosis. No drainable fluid collection. Please note that all CT scans at this facility use dose modulation, iterative reconstruction, and/or weight-based dosing when appropriate to reduce radiation dose to as low as reasonably achievable. Dictated by Herb Sinclair MD @ 02/21/2025 2:10:06 PM MRI pelvis: Impression: 1. Osteomyelitis of the left ischial tuberosity deep to a ulcer and adjacent soft tissue infection/myositis. 2. Small focus of osteomyelitis at the left posteromedial iliac bone deep to a second ulcer. 3. Low-grade partial tearing of the left common hamstring tendon. Dictated by Pedro Madrigal MD @ 02/05/2025 6:05:01 PM Progress Note:A&P Assessment and plan (1) Acute renal failure: Status: Acute (2) Dehydration: Status: Acute (3) Nausea & vomiting: Status: Acute (4) Stage IV pressure ulcer of left buttock: Status: Acute (5) Osteomyelitis: Status: Acute (6) Multiple sclerosis: Status: Acute (7) Anemia, chronic disease: Status: Acute (8) Paraplegia: Status: Acute (9) Diabetes mellitus: Status: Acute (10) Eason catheter in place: Status: Chronic (11) History of pulmonary embolism: Status: Acute (12) Chronic anticoagulation: Status: Acute (13) Cognitive impairment: Status: Acute (14) H/O insertion of cholecystostomy tube: Status: Acute (15) Neurogenic bladder: Status: Chronic (16) Neurogenic bowel: Status: Acute Plan The patient is a 75-year-old male with what appears to be altered mental status likely from sepsis. Sources potentially include indwelling Eason catheter, cholecystostomy tube or osteomyelitis from his ischial tuberosity wound. -recommend brought antibiotics. -wounds do not need debridement at this time. Wound VAC was removed from sacral wound and replaced with wet to dry. Recommend continuing wet-to-dry dressing changes well he is an inpatient. These can be done daily. Wound VAC to be replaced on discharge to sacral wound. -it has been recommended that the patient be admitted in future admissions to a tertiary center given his complex medical issues and need for a multi specialty approach - I would again recommend this today.
== END 2025-02-21 22:30 | disposition other institution (70) ==
PROVIDERS: Emergency Provider Emergency Medicine; PCP Family Medicine
DX: R41.82 Altered mental status, unspecified (principal); K81.0 Acute cholecystitis; N17.9 Acute kidney failure, unspecified; A41.9 Sepsis, unspecified organism
CPT/HCPCS: 36415; 70450; 71260; 74177; 80048; 80076; 81001; 82803; 83605; 83690; 84484; 85025; 86140; 87040; 87800; 93005; 96365; 99285; J2185; J7030; J7120; Q9967

== ENCOUNTER 2025-02-21 22:15 | Outpatient (CLI) | payer MEDICARE, SELFPAY | END 2025-02-21 22:16 | disposition home or self-care (01) | LOC: AMB 02-27 11:02 | PROVIDERS: PCP Family Medicine; Visit Provider Orthopaedic Surgery | DX: R41.82 Altered mental status, unspecified (principal); K81.0 Acute cholecystitis; N17.9 Acute kidney failure, unspecified; A41.9 Sepsis, unspecified organism | CPT/HCPCS: A0425; A0427 ==

== ENCOUNTER 2025-03-05 12:37 | Outpatient (CLI) | payer MEDICARE, SELFPAY | END 2025-03-05 12:38 | disposition home or self-care (01) | LOC: WOUND 12:37 | PROVIDERS: PCP Family Medicine; Visit Provider Surgery | DX: M86.68 Other chronic osteomyelitis, other site (principal); L89.894 Pressure ulcer of other site, stage 4; G35 Multiple sclerosis; G82.20 Paraplegia, unspecified; Z99.3 Dependence on wheelchair | CPT/HCPCS: 11043; 15271; 97605; Q4151 ==

== ENCOUNTER 2025-03-12 12:36 | Outpatient (CLI) | payer MEDICARE, SELFPAY | END 2025-03-12 12:37 | disposition home or self-care (01) | LOC: WOUND 12:36 | PROVIDERS: PCP Family Medicine; Visit Provider Surgery | DX: M86.68 Other chronic osteomyelitis, other site (principal); L89.894 Pressure ulcer of other site, stage 4; L89.324 Pressure ulcer of left buttock, stage 4; G35 Multiple sclerosis; G82.20 Paraplegia, unspecified; M06.9 Rheumatoid arthritis, unspecified; Z99.3 Dependence on wheelchair; I26.09 Other pulmonary embolism with acute cor pulmonale; Z79.01 Long term (current) use of anticoagulants | CPT/HCPCS: 11042; 11044; 87070; 87186; 88307; 88311; 97605 ==

== ENCOUNTER 2025-03-16 20:29 | Outpatient (CLI) | payer MEDICARE, SELFPAY | END 2025-03-16 20:30 | disposition home or self-care (01) | PROVIDERS: PCP Family Medicine; Visit Provider Family Medicine | DX: R41.82 Altered mental status, unspecified (principal) | CPT/HCPCS: A0425; A0429 ==

== ENCOUNTER 2025-03-16 21:06 | Emergency (ER) | payer MEDICARE, SELFPAY ==
--- OUTSIDE RECORDS SUMMARY | 2025-02-04 12:11 | XMS_ITS | Encounter Summary ---
Author Organization [facility] Address [address] [place] [address] Care Team Providers Care Senior Financial Analyst Name Role Phone Jeff Reyes M.D. Primary Care Provider [phone] Reason for Referral * Outpatient (Routine) - Authorized Specialty Diagnoses / Procedures Referred By Contac t Referred To Contact Radiology Diagnoses Cholecystitis Procedures IR Percutaneous Cholecystostomy Tube Exchange Anuel Nunn M.D. [facility] [place] [address] Phone: tel: fax: [facility] Referral ID Status Reason Start Date Expiration Date V isits Requested Visits Authorized [id number] Authorized 02/05/2025 05/08/2026 1 1 * Outpatient (Routine) - Authorized Specialty Diagnoses / Procedures Referred By Contelly t Referred To Contact General Surgery Diagnoses Cholecystitis Anuel Nunn M.D. [address] [place] [address] Phone: tel: fax: [facility] Referral ID Status Reason Start Date Expiration Date Visits Requested Visits Authorized [id number] Authorized Specialty Services Required 02/04/2025 08/06/2026 1 1 * Outpatient (Routine) - Closed Specialty Diagnoses / Procedures Referred By Jono donohue Referred To Contact Radiology Diagnoses Cholecystitis Procedures IR Percutaneous Cholecystostomy Tube Exchange Anuel Nunn M.D. [address] [place] [phone] Phone: tel: fax: [facility] Region Referral ID Status Reason Start Date Expiration Date Visits Re quested Visits Authorized [id number] Closed 10/24/2024 01/24/2026 1 1 Reason for Visit * Outpatient (Routine) - Closed Specialty Diagnoses / Procedures Referred By Jono donohue Referred To Contact Radiology Diagnoses Cholecystitis Procedures IR Percutaneous Cholecystostomy Tube Exchange Anuel Nunn M.D. [address] [place] [phone] Phone: tel: fax: [facility] Referral ID Status Reason Start Date Expiration Date Visits Re quested Visits Authorized [id number] Closed 10/24/2024 01/24/2026 1 1 Encounter Details Date Type Department Care Team (Latest Contact Info) Description 02/04/2025 12:11 PM CDT - 02/04/2025 1:42 PM CDT Hospital Encounter Department of Radiology in [address] [phone] Anuel Nunn M.D. [address] [place] [phone] Cholecystitis Discharge Disposition: Home or Self Care Social History Tobacco Use Types Packs/Day Years Used Date Smoking Tobacco: Former Cigarettes Q uit: 1977 Passive Smoke Exposure: Never Alcohol Use Standard Drinks/Week Comments Not Currently 1 (1 standard drink = 0.6 oz pur e alcohol) [facility] Utilities Answer Date Recorded In the past 12 months has [employer], gas, oil, or water [employer] threatened to shut off services in your [...] [facility] 11/08/2024 Education Answer Date Recorded What is the highest level of school you have completed or the highest degree you have received? 12th grade 10/18/2022 Sex and Gender Information Value Date Recorded Sex Assigned at Male 06/26/2018 4:20 PM GLUE PLANT OPERATOR Legal Sex Male 3:33 AM GLUE PLANT OPERATOR Gender Identity Not on file Sexual [...] Same. PROCEDURE DETAILS / FINDINGS Routine 14 Indonesian 25 cm cholecystostomy tube exchange. Please see Radiology Report for full details. TIPPLE GREASER Ollei Nunn M.D. SPECIMENS REMOVED None. ESTIMATED BLOOD [...] Comprehensive Visit Department of General Surgery in [place] [address] [place] [phone] Roland Benson D.O. [address] [place] [phone] Discharge Disposition: Home or Self Care Scheduled [...] male with history of cholecystitis requiring 14 Indonesian cholecystostomy catheter, routine 3 month exchange COMPARISON: [...] medications. Patient education provided by a care team lead. Patient was ready to learn with no apparent learning barriers were identified. Post-procedure care explained; patient expressed understanding of the content. PROCEDURE DETAILS: Sedation: None. Sedation time: Not applicable. Estimated Blood Loss: Less than 10 mL. TECHNIQUE: Imaging guidance for catheter exchange: Fluoroscopy with permanent image storage Access side: Right lateral abdomen intercostal transhepatic Catheter: 14 Indonesian 25 cm multipurpose pigtail drain Technique: The indwelling catheter was injected with contrast. A guidewire was inserted through the catheter, and the catheter was exchanged for a new 14 Indonesian catheter. Contrast was injected confirming the location [...] medications. Patient education provided by a care team lead. Patient was ready to learn withno apparent learning barriers were identified. Post-procedure careexplained; patient expressed understanding of the content. PROCEDURE DETAILS: Sedation: None. Sedation time: Not applicable. Estimated Blood Loss: Less than 10 mL. TECHNIQUE: Imaging guidance for catheter exchange: Fluoroscopy with permanent imagestorage Access side: Right lateral abdomen intercostal transhepatic Catheter: 14 Indonesian 25 cm multipurpose pigtail drain Technique: The indwelling catheter was injected with contrast. A guidewirewas inserted through the catheter, and the catheter was exchanged for anew 14 Indonesian catheter. Contrast was injected confirming the location [...] as of this encounter Care Teams Senior Financial Analyst Relationship Specialty Start Date End Date Jeff Reyes M.D. [address] [place] [phone] PCP - General 03/14/24 documented as of this encounter
--- OUTSIDE RECORDS SUMMARY | 2025-02-04 12:11 | XMS_ITS | Encounter Summary ---
Author Organization [facility] Address [address] [place] [address] Care Team Providers Care Kiln Operator Name Role Phone Jeff Reyes M.D. Primary Care Provider [phone] Reason for Referral * Outpatient (Routine) - Authorized Specialty Diagnoses / Procedures Referred By Contac t Referred To Contact Radiology Diagnoses Cholecystitis Procedures IR Percutaneous Cholecystostomy Tube Exchange Anuel Nunn M.D. [facility] [place] [address] Phone: tel: fax: [facility] Referral ID Status Reason Start Date Expiration Date V isits Requested Visits Authorized [id number] Authorized 02/05/2025 05/08/2026 1 1 * Outpatient (Routine) - Authorized Specialty Diagnoses / Procedures Referred By Contelly t Referred To Contact General Surgery Diagnoses Cholecystitis Anuel Nunn M.D. [address] [place] [address] Phone: tel: fax: [facility] Referral ID Status Reason Start Date Expiration Date Visits Requested Visits Authorized [id number] Authorized Specialty Services Required 02/04/2025 08/06/2026 1 1 * Outpatient (Routine) - Closed Specialty Diagnoses / Procedures Referred By Jono donohue Referred To Contact Radiology Diagnoses Cholecystitis Procedures IR Percutaneous Cholecystostomy Tube Exchange Anuel Nunn M.D. [address] [place] [phone] Phone: tel: fax: [facility] Region Referral ID Status Reason Start Date Expiration Date Visits Re quested Visits Authorized [id number] Closed 10/24/2024 01/24/2026 1 1 Reason for Visit * Outpatient (Routine) - Closed Specialty Diagnoses / Procedures Referred By Jono donohue Referred To Contact Radiology Diagnoses Cholecystitis Procedures IR Percutaneous Cholecystostomy Tube Exchange Anuel Nunn M.D. [address] [place] [phone] Phone: tel: fax: [facility] Referral ID Status Reason Start Date Expiration Date Visits Re quested Visits Authorized [id number] Closed 10/24/2024 01/24/2026 1 1 Encounter Details Date Type Department Care Team (Latest Contact Info) Description 02/04/2025 12:11 PM CDT - 02/04/2025 1:42 PM CDT Hospital Encounter Department of Radiology in [address] [phone] Anuel Nunn M.D. [address] [place] [phone] Cholecystitis Discharge Disposition: Home or Self Care Social History Tobacco Use Types Packs/Day Years Used Date Smoking Tobacco: Former Cigarettes Q uit: 1977 Passive Smoke Exposure: Never Alcohol Use Standard Drinks/Week Comments Not Currently 1 (1 standard drink = 0.6 oz pur e alcohol) [facility] Utilities Answer Date Recorded In the past 12 months has [employer], gas, oil, or water [employer] threatened to shut off services in your [...] your living situation today? I have a [facility] place to live 11/08/2024 Education Answer Date Recorded What is the highest level of school you have completed or the highest degree you have received? 12th grade 10/18/2022 Sex and Gender Information Value Date Recorded Sex Assigned at Male 06/26/2018 4:20 PM INSET CUTTER Legal Sex Male 3:33 AM INSET CUTTER Gender Identity Not on file Sexual Orientation [...] Same. PROCEDURE DETAILS / FINDINGS Routine 14 Sierra Leonean 25 cm cholecystostomy tube exchange. Please see Radiology Report for full details. ASSISTANT AUDITOR Ollie Nunn M.D. SPECIMENS REMOVED None. ESTIMATED [...] Comprehensive Visit Department of General Surgery in [place] [address] [place] [phone] Roland Benson D.O. [address] [place] [phone] Discharge Disposition: Home or Self Care Scheduled [...] male with history of cholecystitis requiring 14 Sierra Leonean cholecystostomy catheter, routine 3 month exchange COMPARISON: [...] medications. Patient education provided by a care paper steamer. Patient was ready to learn with no apparent learning barriers were identified. Post-procedure care explained; patient expressed understanding of the content. PROCEDURE DETAILS: Sedation: None. Sedation time: Not applicable. Estimated Blood Loss: Less than 10 mL. TECHNIQUE: Imaging guidance for catheter exchange: Fluoroscopy with permanent image storage Access side: Right lateral abdomen intercostal transhepatic Catheter: 14 Sierra Leonean 25 cm multipurpose pigtail drain Technique: The indwelling catheter was injected with contrast. A guidewire was inserted through the catheter, and the catheter was exchanged for a new 14 Sierra Leonean catheter. Contrast was injected confirming the location [...] medications. Patient education provided by a care paper steamer. Patient was ready to learn withno apparent learning barriers were identified. Post-procedure careexplained; patient expressed understanding of the content. PROCEDURE DETAILS: Sedation: None. Sedation time: Not applicable. Estimated Blood Loss: Less than 10 mL. TECHNIQUE: Imaging guidance for catheter exchange: Fluoroscopy with permanent imagestorage Access side: Right lateral abdomen intercostal transhepatic Catheter: 14 Sierra Leonean 25 cm multipurpose pigtail drain Technique: The indwelling catheter was injected with contrast. A guidewirewas inserted through the catheter, and the catheter was exchanged for anew 14 Sierra Leonean catheter. Contrast was injected confirming the location [...] documented as of this encounter Care Teams Kiln Operator Relationship Specialty Start Date End Date eJff Reyes M.D. [address] [place] [phone] PCP - General 03/14/24 documented as of this encounter
--- OUTSIDE RECORDS SUMMARY | 2025-02-19 15:00 | XMS_ITS | Encounter Summary ---
Author Organization [place] Address [facility] [place] [address] Care Team Providers Care Produce Buyer Name Role Phone Bijan Crawford Primary Care Provider [phone] Reason for Referral * Consultation (Priority: 1-2 Weeks) - Pending Review Specialty Diagnoses / Procedures Referred By Jono donohue Referred To Contact Plastic Surgery Diagnoses Pressure ulcer Rl Evans MD 420 [facility] [address] [place] [address] Phone: tel: fax: Referral ID Status Reason Start Date Expiration Date V isits Requested Visits Authorized [id number] Pending Review 02/19/2025 02/19/2026 1 1 Question Answer Is the reason for referral related to a cancer diagnosis or breast reconstruction? No My Clinical Question Is: He has sacral decubitus ulcer. Pls assess for management options. Thanks. Scheduling Instructions: [facility] will call you to coordinate your care as prescribed by your provider. If you don't hear from a sales representative livestock within 2 business days, please call . Comments Please be aware that coverage of these services is subject to the terms and limitations of your health insurance plan. Call member services at your health plan with any benefit or coverage questions. [facility] will call you to coordinate your care as prescribed by your provider. If you don't hear from a sales representative livestock within 2 business days, please call . Reason for Visit * Reason Comments Consult * Consultation (Routine) - Pending Review Specialty Diagnoses / Procedures Referred By Jono donohue Referred To Contact Infectious Diseases Diagnoses Pressure ulcer Stella Mejia MD [address] [place] [address] Phone: tel: fax: Referral ID Status Reason Start Date Expiration Date V isits Requested Visits Authorized [id number] Pending Review 01/16/2025 01/16/2026 1 1 Encounter Details Date Type Department Care Team ([facility] st Contact Info) Description 02/19/2025 3:00 PM CDT Office Visit [facility] Infectious Disease [address] [place] [address] Rl Evans MD 420 [facility] [address] [place] [address] Pressure injury of left buttock, stage 4 (H) Social History Tobacco Use Types Packs/Day Years Used Date Smoking Tobacco: Former Cigarettes Q uit: 07/24/1971 Smokeless Tobacco: Never Tobacco Cessation:Counseling Given: Not Answered Sex and Gender Information Value Date Recorded Sex Assigned at Not on file 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 [facility] INFECTIOUS DISEASE [address] [facility] [address] Patient: Ren Ramirez, Date of 1950 Date [...] cholecystectomy first. They will be going to [place] for his surgeon. PLAN: Plastic surgery referral. 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 [...] those episodes but the notes from EDand cardiovascular surgical tech notes that his BP is normal. Physical [...] Description 04/21/2025 2:00 PM CDT Office Visit [facility] Infectious Disease Clinic [address] [address] Rl Evans MD 420 [facility] [address] [place], [place] [address] Scheduled Referrals Name Type Priority Associated Diagnoses Orde r Schedule Adult Plastic Surgery Advertising Director Referral Referral Priority: 1-2 Weeks Pressure injury of left buttock, stage 4 (H) Expected: 02/19/2025 (Approximate), Expires: 02/19/2026 documented as of this encounter Visit Diagnoses Diagnosis Pressure injury of left buttock, stage 4 (H) documented in this encounter Care Teams Produce Buyer Relationship Specialty Start Date End Date Bijan Crawford [address] [place], [place] [address] PCP - General Family Medicine 01/20/25 documented as of this encounter
--- OUTSIDE RECORDS SUMMARY | 2025-02-19 15:00 | XMS_ITS | Encounter Summary ---
Author Organization [place] Address [facility] [place] [address] Care Team Providers Care Public Administration Professor Name Role Phone Bijan Crawford Primary Care Provider [phone] Reason for Referral * Consultation (Priority: 1-2 Weeks) - Pending Review Specialty Diagnoses / Procedures Referred By Jono donohue Referred To Contact Plastic Surgery Diagnoses Pressure ulcer Rl Evans MD 420 [facility] [address] [place] [address] Phone: tel: fax: Referral ID Status Reason Start Date Expiration Date V isits Requested Visits Authorized [id number] Pending Review 02/19/2025 02/19/2026 1 1 Question Answer Is the reason for referral related to a cancer diagnosis or breast reconstruction? No My Clinical Question Is: He has sacral decubitus ulcer. Pls assess for management options. Thanks. Scheduling Instructions: [facility] will call you to coordinate your care as prescribed by your provider. If you don't hear from a credit resolution representative within 2 business days, please call . Comments Please be aware that coverage of these services is subject to the terms and limitations of your health insurance plan. Call member services at your health plan with any benefit or coverage questions. [facility] will call you to coordinate your care as prescribed by your provider. If you don't hear from a credit resolution representative within 2 business days, please call . Reason for Visit * Reason Comments Consult * Consultation (Routine) - Pending Review Specialty Diagnoses / Procedures Referred By Jono donohue Referred To Contact Infectious Diseases Diagnoses Pressure ulcer Stella Mejia MD [address] [place] [address] Phone: tel: fax: Referral ID Status Reason Start Date Expiration Date V isits Requested Visits Authorized [id number] Pending Review 01/16/2025 01/16/2026 1 1 Encounter Details Date Type Department Care Team ([facility] st Contact Info) Description 02/19/2025 3:00 PM CDT [facility] Visit [facility] Infectious Disease [address] [place] [address] Rl Evans MD 420 [facility] [address] [place] [address] Pressure injury of left buttock, stage 4 (H) Social History Tobacco Use Types Packs/Day Years Used Date Smoking Tobacco: Former Cigarettes Q uit: 07/24/1971 Smokeless Tobacco: Never Tobacco Cessation:Counseling Given: Not Answered Sex and Gender Information Value Date Recorded Sex Assigned at Not on file 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 [facility] INFECTIOUS DISEASE [address] [facility] [address] Patient: Ren Ramirez, Date of 1950 Date [...] cholecystectomy first. They will be going to [place] for his surgeon. PLAN: Plastic surgery referral. 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 [...] those episodes but the notes from EDand venture capital analyst notes that his BP is normal. Physical [...] Description 04/21/2025 2:00 PM CDT Office Visit [facility] Infectious Disease Clinic [address] [address] Rl Evans MD 420 [facility], [facility] [address] [place], [place] [address] Scheduled Referrals Name Type Priority Associated Diagnoses Orde r Schedule Adult Plastic Surgery Hvac R Instructor Referral Referral Priority: 1-2 Weeks Pressure injury of left buttock, stage 4 (H) Expected: 02/19/2025 (Approximate), Expires: 02/19/2026 documented as of this encounter Visit Diagnoses Diagnosis Pressure injury of left buttock, stage 4 (H) documented in this encounter Care Teams Public Administration Professor Relationship Specialty Start Date End Date Bijan Crawford [address] [place], [place] [address] PCP - General Family Medicine 01/20/25 documented as of this encounter
--- OUTSIDE RECORDS SUMMARY | 2025-02-22 | XMS_ITS | Encounter Summary ---
Author Organization [facility] Address [address] [place] [address] Care Team Providers Care Director Of Parks And Recreation Name Role Phone Jeff Reyes M.D. 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 Wound care Rne Sung M.D. [address] [place] [phone] Phone: tel: fax: [facility] Region Referral ID Status Reason Start Date Expiration Date V isits Requested Visits Authorized [id number] Authorized 02/27/2025 05/30/2026 1 1 * Outpatient (Routine) - Authorized Specialty Diagnoses / Procedures Referred By Contac t Referred To Contact Ren Sung M.D. [address] [place] [phone] Phone: tel: fax: [facility] Region Referral ID Status Reason Start Date Expiration Date V isits Requested Visits Authorized [id number] Authorized 02/26/2025 08/28/2026 1 1 Scheduling Instructions [...] Expiration Date Visits Re quested Visits Authorized [id number] 1 1 Encounter Details Date Type Department Care Team (Latest Contact Info) Description 02/22/2025 - 02/27/2025 12:16 PM CDT Hospital Encounter [facility], Fourth Floor [facility] [place] [phone] Nneka Thomas M.B.B.S., Shankar [address] [place] [phone] Nelson Chand M.D. [address] [place] [phone] Ren Sung M.D. 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 Patient unable to answer 02/27/2025 [facility] Utilities Answer Date Recorded In the past 12 months has [employer] electric, gas, oil, or water company threatened [...] Sex Assigned at Male 06/26/2018 4:20 PM ODD PIECE CHECKER Legal Sex Male 3:33 AM ODD PIECE CHECKER Gender Identity Not on file Sexual [...] neurogenic bladder and bowel. Patient presented from [facility] to [facility] Emergency Department 02/21 due to altered mental [...] in [place] and also imaging studies at [facility] showed: CT head Impression: No acute hemorrhage [...] collection. The patient was eventually transferred to [facility] for further care, as it was [...] AST P U/L 50* 56* 53* Disposition: shelter care facility Pending Labs at Discharge: Pending [...] spent 45 minutes, 30 minutes spent in fvjm-hz-hlkv evaluation and coordination of care. Ren Sung MD [facility] Medicine Service documented in this encounter [...] 75 y.o. male who was admitted to [facility] 02/22/2025 due to Encephalopathy Metabolic [G93.41]. Social work was consulted to assist with discharge planning. A psychosocial assessment was completed on 08/09/2024 by Loida York [facility]. OBJECTIVE Patient Active Problem List Diagnosis Code Hypertension Essential Primary I10 Multiple Sclerosis (HCC) G35 Hypokalemia E87.6 Neuromuscular Dysfunction Of Bladder Unspecified N31.9 Neurogenic Bowel K59.2 Hypoalbuminemia E88.09 Atherosclerotic Heart Disease Of [place] Coronary Artery Without Angina Pectoris I25.10 Paraparesis Spastic ([facility]) G82.20 Abdominal Pain R10.9 Hematemesis K92.0 Hematochezia K92.1 Nausea R11.0 COVID-19 Infection U07.1 Apnea Sleep Obstructive G47.33 Lymphedema I89.0 Weakness General R53.1 Body Mass Index 33.0 To 33.9 Adult Z68.33 Acute Cystitis With Hematuria N30.01 Fracture Femoral Condyle Closed Initial Right ([facility]) S72.411A Fracture Hip Closed Initial Right ([facility]) S72.001A Osteoporosis Hip With Pathological Fracture Initial Right ([facility]) M80.051A Open Reduction Internal Fixation Hip Status Post Z97.8 Paraplegia ([facility]) G82.20 Embolus Pulmonary ([facility]) I26.99 Acute Embolism And Thrombosis Of Other Specified Deep Vein Of Lower Extremity Bilateral ([facility]) I82.493 Body Mass Index 34.0 To 34.9 Adult Z68.34 Encephalopathy Metabolic G93.41 Pressure Injury (Ulcer) Of Sacral Region Stage 4 ([facility]) L89.154 ASSESSMENT / PLAN ASSESSMENT Patient not formally assessed. Coordination of care only. INTERVENTION Lumber Salvager completed bedside team rounds with Dr. Sung and nursing. Patient is medically ready for discharge. Patient will have a midline placed before discharge. Lumber Salvager sent message to [facility] notifying them of discharge time of 1200 from [facility] and that patient would be discharging with a midline. PLAN 1. Social work will assist as needed and requested. Anabella Parmar 02/27/25 * Mackenzie Wells - 02/27/2025 8:50 AM CDT Date and time discharge transportation arranged for: 02/27 @ 1200 Meet at door: C Nurse's station: [phone] Transportation company: [employer]) ([phone]) Type of transport: Wheelchair needs to be provided Destination: [facility] Transportation will be paid for by: Insurance Cost: na Bariatric: no Legs extended: no Needing Oxygen: no * Naldo Underwood - 02/26/2025 1:55 PM CDT Palliative Medicine Music Therapy Assessment Note Patient: Ren Ramirez Age:75 y.o. Location: [place] [address] Date of Encounter: 02/26/2025 Time of Encounter: 1355 Visit Duration: 5 min Reason(s) of encounter: Coping, Quality of Life, and Symptom Management Summary: Upon arrival, Mr. Ramirez (Ren) was seated upright with his eyes open; YIELD LOSS INSPECTOR was present. He endorsed pain on his [...] Care Music Therapist * Twyla Arita M.S., CCC-SOFTWARE TEST ENGINEER - 02/26/2025 1:24 PM CDT Per RN, [...] 75 y.o. male who was admitted to [facility] 02/22/2025 due to Encephalopathy Metabolic [G93.41]. Social work was consulted to assist with discharge planning. A psychosocial assessment was completed on 08/09/2024 by DEANGELO Damon. OBJECTIVE Patient Active Problem List Diagnosis Code Hypertension Essential Primary I10 Multiple Sclerosis (HCC) G35 Hypokalemia E87.6 Neuromuscular Dysfunction Of Bladder Unspecified N31.9 Neurogenic Bowel K59.2 Hypoalbuminemia E88.09 Atherosclerotic Heart Disease Of [place] Coronary Artery Without Angina Pectoris I25.10 Paraparesis Spastic ([facility]) G82.20 Abdominal Pain R10.9 Hematemesis K92.0 Hematochezia K92.1 Nausea R11.0 COVID-19 Infection U07.1 Apnea Sleep Obstructive G47.33 Lymphedema I89.0 Weakness General R53.1 Body Mass Index 33.0 To 33.9 Adult Z68.33 Acute Cystitis With Hematuria N30.01 Fracture Femoral Condyle Closed Initial Right ([facility]) S72.411A Fracture Hip Closed Initial Right ([facility]) S72.001A Osteoporosis Hip With Pathological Fracture Initial Right ([facility]) M80.051A Open Reduction Internal Fixation Hip Status Post Z97.8 Paraplegia ([facility]) G82.20 Embolus Pulmonary ([facility]) I26.99 Acute Embolism And Thrombosis Of Other Specified Deep Vein Of Lower Extremity Bilateral ([facility]) I82.493 Body Mass Index 34.0 To 34.9 Adult Z68.34 Encephalopathy Metabolic G93.41 Pressure Injury (Ulcer) Of Sacral Region Stage 4 ([facility]) L89.154 ASSESSMENT / PLAN ASSESSMENT Patient not formally assessed. Coordination of care only. INTERVENTION Lumber Salvager completed bedside team rounds with Dr. Sung and nursing. Patient is not medically ready for discharge. Lumber Salvager sent message via [employer] and left a voicemail for facility social media job titles, Mike, to clarify if facility would be able to accommodate wound vac and if IV antibiotic has been ordered for patient to discharge with. Lumber Salvager received message back in [employer] that patient is able to return. Lumber Salvager notified Dr. Sung and JEAN CARLOS Roger, that patient will discharge tomorrow. Lumber Salvager requested [facility] arrange wheelchair transport using patient's insurance, [employer], to coverthe cost of transportation. PLAN 1. [...] and bowel. Patient presented from SNF to [facility] Emergency Department 02/21 due to altered mental [...] in [place] and also imaging studies at [facility] showed: CT head Impression: No acute hemorrhage [...] collection. The patient was eventually transferred to [facility] for further care, as it was [...] PCR Undetected Respiratory Syncytial Virus, PCR Undetected [id number]-4, PCR Undetected Specimen Source Swab, Nasopharynx Gram [...] bottle 1 out of 2 sets from [place]. We are still awaiting speciation ([place] lab: [id number]). Other contributing factor for the encephalopathy including [...] of treatment. # Concern Dysphagia - Initially SOFTWARE TEST ENGINEER recommended SB6 and mildly thick liquid. This [...] Muscle Mass: Normal Fluid Accumulation: Absent Reduced Ammunition Specialist Strength: Not applicable This is in the [...] spent 60 minutes, including time spent in uyzc-kx-nypy evaluation and coordination of care * Twyla Arita M.S., CCC-SOFTWARE TEST ENGINEER - 02/25/2025 12:30 PM CDT Speech Language Pathology Dysphagia Treatment- Inpatient SUBJECTIVE Patient: Ren Ramirez Room: [address] [place] [address] Referring/Attending Provider: Nelson Chand M.D. Medical Diagnosis: Encephalopathy Metabolic [G93.41] Payor: MEDICA / Plan: [employer] / Product Type: HMO / Reason for SOFTWARE TEST ENGINEER Referral: Mentation Onset Date: 02/22/2025 Past Medical / Surgical History: Problem List[1] Medical History[2] Surgical History[3] History of Present Illness: Ren Ramirez is a 75 y.o. male who was admitted to [facility] in [place] on 02/22/2025 due to Encephalopathy Metabolic [G93.41] [...] to ensure tolerance of recommended diet. PLAN SOFTWARE TEST ENGINEER Ongoing Services: Ongoing formal Speech Pathology services Frequency of Treatment: DYS 0-7 L. Check Tom. Duration of Treatment: Until goals are met or patient is discharged SOFTWARE TEST ENGINEER - Next Inpatient Appointment: 02/26/25 Rehab Potential: Good Re-evaluate: As clinically indicated Diet Recommendations - Solids: IDDSI Level 7 Regular Diet Recommendations - Liquids: IDDSI Level 0 Thin Please refer to OT and/or PT notes for potential additions to discharge recommendations. EDUCATION: Educated patient and caregivers regarding impressions, recommendations, and speech therapy plan of care. GOALS Dysphagia Half-Way Goal Dysphagia Half-Way Goal: Patient will tolerate a soft and bite size diet with mildly thick liquidswithout signs and symptoms of aspiration to maintain optimal nutrition with the least restrictive diet. 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) Open Reduction Internal Fixation Hip Status Post Paraplegia (HCC) Embolus Pulmonary (HCC) Acute Embolism And Thrombosis Of Other Specified Deep Vein Of Lower Extremity Bilateral (HCC) Body Mass Index 34.0 To 34.9 Adult Encephalopathy Metabolic Pressure Injury (Ulcer) Of Sacral Region Stage 4 ([facility]) [2] Past Medical History: Diagnosis Date [...] 75 y.o. male who was admitted to [facility] 02/22/2025 due to Encephalopathy Metabolic [G93.41]. Social work was consulted to assist with discharge planning. A psychosocial assessment was completed on 08/09/2024 by DEANGELO Damon. OBJECTIVE Patient Active Problem List Diagnosis Code Hypertension Essential Primary I10 Multiple Sclerosis (HCC) G35 Hypokalemia E87.6 Neuromuscular Dysfunction Of Bladder Unspecified N31.9 Neurogenic Bowel K59.2 Hypoalbuminemia E88.09 Atherosclerotic Heart Disease Of [place] Coronary Artery Without Angina Pectoris I25.10 Paraparesis Spastic ([facility]) G82.20 Abdominal Pain R10.9 Hematemesis K92.0 Hematochezia K92.1 Nausea R11.0 COVID-19 Infection U07.1 Apnea Sleep Obstructive G47.33 Lymphedema I89.0 Weakness General R53.1 Body Mass Index 33.0 To 33.9 Adult Z68.33 Acute Cystitis With Hematuria N30.01 Fracture Femoral Condyle Closed Initial Right ([facility]) S72.411A Fracture Hip Closed Initial Right ([facility]) S72.001A Osteoporosis Hip With Pathological Fracture Initial Right ([facility]) M80.051A Open Reduction Internal Fixation Hip Status Post Z97.8 Paraplegia ([facility]) G82.20 Embolus Pulmonary ([facility]) I26.99 Acute Embolism And Thrombosis Of Other Specified Deep Vein Of Lower Extremity Bilateral ([facility]) I82.493 Body Mass Index 34.0 To 34.9 Adult Z68.34 Encephalopathy Metabolic G93.41 Pressure Injury (Ulcer) Of Sacral Region Stage 4 ([facility]) L89.154 ASSESSMENT / PLAN ASSESSMENT Patient not formally assessed. Coordination of care only. INTERVENTION Patient had been seen by Dr. Chand prior to bedside team rounds. Patient is not medically ready for discharge and will be seen by palliative medicine. Lumber Salvager requested IV antibiotic and saline flushes be placed by Infectious Disease and explained facility would need 24 hours to obtain IV antibiotic. Lumber Salvager send wound vac information to facility and [...] and bowel. Patient presented from SNF to [facility] Emergency Department 02/21 due to altered mental [...] in [place] and also imaging studies at [facility] showed: CT head Impression: No acute hemorrhage [...] collection. The patient was eventually transferred to [facility] for further care, as it was [...] PCR Undetected Respiratory Syncytial Virus, PCR Undetected [id number]-1, PCR Undetected Specimen Source Swab, Nasopharynx Gram [...] bottle 1 out of 2 sets from [place]. We are still awaiting speciation ([place] lab: [id number]). Other contributing factor for the encephalopathy including [...] of treatment. # Concern Dysphagia - Initially SOFTWARE TEST ENGINEER recommended SB6 and mildly thick liquid. This [...] Muscle Mass: Normal Fluid Accumulation: Absent Reduced Ammunition Specialist Strength: Not applicable This is in the [...] spent 40 minutes, including time spent in kktm-mq-zujm evaluation and coordination of care Nelson Chand M.D. [facility] Internal Medicine [facility] * Candelario Castillo Pharm.D., R.Ph. - 02/25/2025 [...] Muscle Mass: Normal Fluid Accumulation: Absent Reduced Ammunition Specialist Strength: Not applicable This is in the [...] Wound Healing, Nausea/Vomiting/Diarrhea * Twyla Arita M.S., [facility]-SOFTWARE TEST ENGINEER - 02/24/2025 11:32 AM CDT 02/24/25 1132 [...] 75 y.o. male who was admitted to [facility] 02/22/2025 due to Encephalopathy Metabolic [G93.41]. Social work was consulted to assist with discharge planning. A psychosocial assessment was completed on 08/09/2024 by Loida York [facility]. OBJECTIVE Patient Active Problem List Diagnosis Code Hypertension Essential Primary I10 Multiple Sclerosis (HCC) G35 Hypokalemia E87.6 Neuromuscular Dysfunction Of Bladder Unspecified N31.9 Neurogenic Bowel K59.2 Hypoalbuminemia E88.09 Atherosclerotic Heart Disease Of [place] Coronary Artery Without Angina Pectoris I25.10 Paraparesis Spastic ([facility]) G82.20 Abdominal Pain R10.9 Hematemesis K92.0 Hematochezia K92.1 Nausea R11.0 COVID-19 Infection U07.1 Apnea Sleep Obstructive G47.33 Lymphedema I89.0 Weakness General R53.1 Body Mass Index 33.0 To 33.9 Adult Z68.33 Acute Cystitis With Hematuria N30.01 Fracture Femoral Condyle Closed Initial Right ([facility]) S72.411A Fracture Hip Closed Initial Right ([facility]) S72.001A Osteoporosis Hip With Pathological Fracture Initial Right ([facility]) M80.051A Open Reduction Internal Fixation Hip Status Post Z97.8 Paraplegia ([facility]) G82.20 Embolus Pulmonary ([facility]) I26.99 Acute Embolism And Thrombosis Of Other Specified Deep Vein Of Lower Extremity Bilateral ([facility]) I82.493 Body Mass Index 34.0 To 34.9 Adult Z68.34 Encephalopathy Metabolic G93.41 ASSESSMENT / PLAN ASSESSMENT Patient not formally assessed. Coordination of care only. INTERVENTION Patient had been seen by Dr. Chand prior to bedside team rounds. Patient is not medically ready for discharge and will be seen by palliative medicine. Lumber Salvager spoke with Riley social media job titles at [facility] ([phone]), who confirmed baseline information remains at the same from 07/2024 assessment (requires lift device, dependent in dressing, housekeeping, meal prep, shopping, independent with feeding and grooming, and needs assistance with bathing and toileting). Lumber Salvager asked if facility would be able to accommodate IV antibiotic,Ertapenem, 1g Q 24. Riley stated that the facility can accommodate the IV antibiotic but will needsorders 24 hours prior for pharmacy to provide antibiotic to facility. Lumber Salvager requested. Dr. Field with Infectious Disease place [...] Completed medication reconciliation with MAR provided by [facility]. Per MAR shows no tylenol listed however, [...] neurogenic bladder and bowel. Patient presented from [facility] to [facility] Emergency Department 02/21 due to altered mental [...] in [place] and also imaging studies at [facility] showed: CT head Impression: No acute hemorrhage [...] collection. The patient was eventually transferred to [facility] for further care, as it was [...] PCR Undetected Respiratory Syncytial Virus, PCR Undetected [id number]-5, PCR Undetected Specimen Source Swab, Nasopharynx Gram [...] bottle 1 out of 2 sets from [place]. We are still awaiting speciation ([place] lab: [id number]). Other contributing factor for the encephalopathy including dehydration and [place]. - His mental status is slowly improving yet not back to baseline. No longer having any slurred speech, but is delirious. - Continue meropenem for now. Follow urine cultures, blood cultures. Will need to receive more information from [facility]. # Dysphagia - SOFTWARE TEST ENGINEER recommended SB6 and mildly thick liquid. # [...] Muscle Mass: Normal Fluid Accumulation: Absent Reduced Ammunition Specialist Strength: Not applicable This is in the [...] spent 40 minutes, including time spent in qmeo-fj-qgbi evaluation and coordination of care Nelson Chand M.D. [facility] Internal Medicine [facility] * Nelson Chand M.D. - 02/23/2025 11:16 [...] neurogenic bladder and bowel. Patient presented from [facility] to [facility] Department 02/21 due to altered mental [...] in [place] and also imaging studies at [facility] showed: CT head Impression: No acute hemorrhage [...] collection. The patient was eventually transferred to [facility] for further care, as it was [...] PCR Undetected Respiratory Syncytial Virus, PCR Undetected [id number]-[id number]-4, PCR Undetected Specimen Source Swab, Nasopharynx Gram [...] gram negative aden in aerobic bottle from [place]. We arestill waiting speciation. Other contributing factor for the encephalopathy including dehydration and BISHOP. - His mental status is slowly improving yet not back to baseline. No longer having any slurred speech. - The patient was started on broad spectrum antibiotics, we will likely need to de-escalate as microbiology data evolves. Follow urine cultures, blood cultures. Will need to receive more information from [place]. # Dysphagia - SOFTWARE TEST ENGINEER recommended SB6 and mildly thick liquid. # [...] Muscle Mass: Normal Fluid Accumulation: Absent Reduced Ammunition Specialist Strength: Not applicable This is in the [...] spent 50 minutes, including time spent in yphj-ml-kltk evaluation and coordination of care Nelson Chand M.D. [facility] Internal Medicine [facility] * Elder Barrientos M.D. - 02/23/2025 10:23 [...] - Date/Time Bacterial Culture, Aerobic + Susceptibility [[id number]] Collected: 02/22/25 1230 Lab Status: Preliminary result Specimen: Synovial Fluid, Right Wrist Updated: 02/23/25 0613 Bacterial Culture, Aerobic + Susc No growth to date Bacterial Culture, Anaerobic + Susceptibility [[id number]] Collected: 02/22/25 1230 Lab Status: In process Specimen: Synovial Fluid, Right Wrist Updated: 02/22/25 1248 Gram Stain [[id number]] Collected: 02/22/25 1230 Lab Status: Final result Specimen: Synovial Fluid, Right Wrist Updated: 02/22/25 1413 Gram Stain No organisms seen. White blood cells present. Stain performed on concentrated cytospin preparation. Bacterial Culture, Aerobic + Susceptibility, Urine [[id number]] Collected: 02/22/25 0502 Lab Status: Final result Specimen: Urine, Indwelling Catheter Updated: 02/23/25 0847 Urine Culture No growth after 1 day of incubation. SARS CoV-2, Influenza A/B, RSV, PCR Symptomatic [[id number]] Collected: 02/22/25 0502 Lab Status: Final result Specimen: Swab from Nasopharynx Updated: 02/22/25 0640 Influenza A, PCR Undetected Comment: Influenza A viral RNA absent. Influenza B, PCR Undetected Comment: Influenza B viral RNA absent. Respiratory Syncytial Virus, PCR Undetected Comment: RSV RNA absent. WEAX-Vfkxctukmzl-2, PCR Undetected Comment: SARS-CoV-2 RNA absent. ----ADDITIONAL INFORMATION---- This RT-PCR test using the Xpert Xpress SARS-CoV-2/Flu/RSV assay ([employer] performed on the Variable systems has received Emergency Use Authorization (EUA) by the U.S. Food and Drug Administration. Performance characteristics were verified by [facility] in a manner consistent with CLIA requirements. Fact sheets for this Emergency Use Authorization (EUA) assay can be found at the following links: For Healthcare Providers: https://www.fda.gov/media/134253/download For Patients: https://www.fda.gov/media/268851/download Specimen Source Swab, Nasopharynx Bacteria / Bautista Culture, Blood #2 [[id number]] Collected: 02/22/25 0435 Lab Status: Preliminary result Specimen: Blood, Peripheral Draw Updated: 02/23/25 0505 Bacteria/Bautista Culture, Blood No growth to date. Bacteria / Bautista Culture, Blood #1 [[id number]] Collected: 02/22/25 0428 Lab Status: Preliminary result [...] gram negative aden in aerobic bottle from [facility]. Source of this is unclear at this [...] neurogenic bladder and bowel. Patient presented from [facility] to [facility] Emergency Department 02/21 due to altered mental [...] in [facility] and also imaging studies at [facility] showed: CT head Impression: No acute hemorrhage [...] collection. The patient was eventually transferred to [facility] for further care, as it was [...] aspiration results are back. * Carolyn Blackburn CCC-SOFTWARE TEST ENGINEER - 02/22/2025 10:11 AM CDT Attempted to complete a bedside swallow evaluation; patient not alert and when eyes open refusals to participate. Communication of [facility] one time during attempt. Will continue to [...] bowel. 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) Open Reduction Internal Fixation Hip Status Post Paraplegia ([facility]) Embolus Pulmonary (HCC) Acute Embolism And Thrombosis Of Other Specified Deep Vein Of Lower Extremity Bilateral ([facility]) Body Mass Index 34.0 To 34.9 Adult Encephalopathy Metabolic Past Medical History: Diagnosis Date Apnea Sleep Obstructive Arthritis Rheumatoid (HCC) Coronary Artery Disease (Unspecified) Glaucoma Heart Failure NOS Hyperlipidemia Hypertension NOS Multiple Sclerosis (HCC) Non-ST Elevation Myocardial Infarction ([facility]) 05/26/2018 Open Reduction Internal Fixation Hip Status Post 12/22/2022 Other Specified Health Status Pressure Injury (Ulcer) Of Sacral Region Stage [address] ([facility]) 03/24/2017 Sleep Apnea SURGICAL HISTORY Past [...] Patient received about2 L of fluids at [facility]. At this time, continue hydration while patient [...] Wound Vac Performed by: Vivian Smith R.N., [place] Authorized by: Ren Sung M.D. Care team [...] place.Please see Radiology Report for full details. PSYCHOMETRIC EXAMINER Ollie Nunn M.D. SPECIMENS REMOVED None. ESTIMATED [...] Please see Radiology Report for full details. PSYCHOMETRIC EXAMINER Ollie Nunn M.D. SPECIMENS REMOVED 0.5 mL [...] was in place patient was admitted to [facility] on 02/22 with altered mental status. The patient was eventually transferred to [facility] for further care, as it was [...] operate a motorized wheelchair while at [facility] custodial facility. -- Nutritional: Patient reports adequate nutrition and adds that he tries to drink protein shakes to supplement. He does admit to not drinking enough fluids. Social and cultural aspects of care: Patient's in 2021, since then he has moved into a custodial facility. He andhis have 3 children together. [...] reviewed labs and CT. Imaging studies at [facility] showed: CT head Impression: No acute hemorrhage [...] was in place patient was admitted to [facility] on 02/22 with altered mental status. The patient was eventually transferred to [facility] for further care, as it was [...] for surgical interventions. + Return to [facility] when medically stable. # HOSPICE DISCUSSION: Briefly introduced the concept of hospice with focus on symptom management and comfort maximizing quality over quantity of life. Hospice philosophy was discussed today as an option of medical care moving forward. Benefits and limitations of hospice services were reviewed today. Goals do not align with hospice philosophy. Bernna # LEGAL AND REGULATORY ASPECTS OF CARE/DOCUMENTS: [...] other diagnostics, and collaboration with other clinicians. Endl-ef-otwy visit including history, physical examination, and discussion [...] Advanced Endoscopy Division of Gastroenterology and Hepatology [facility] * DuniaPaty R.N., [place], [place] - 02/24/2025 [...] WOUND ASSESSMENT: Wound #1 Type: Pressure Injury [facility] Pressure Injury Staging: Stage 4 Wound Location: Sacrum Wound Orientation: Mid Wound Tunnel/Induration: Length 3.5 cm, Width 4.3 cm, Depth 1.5 cm, and Undermining 2.5 cm at 12-5 o'clock . Wound Bed Tissue: Red, Clean, and Granulation tissue 100% Isatu-Wound Skin: Blanchable erythema, Denuded, Fragile, and Red Wound Drainage Amount and Appearance: Serosanguineous Wound #2 Type: Pressure Injury [facility] Pressure Injury Staging: Stage 4 Wound Location: Ischial Tuberosity Wound Orientation: Left Wound Tunnel/Induration: Length 2.5 cm, Width 9 cm, Depth 4 cm, and Undermining 4 cm at 12-5 o'clock . Wound Bed Tissue: Red, Yellow, Granulation 75% 25% Slough Isatu-Wound Skin: Blanchable erythema, Denuded, Fragile, and Red Wound Drainage Amount and Appearance: Serosanguineous Wound #3 Type: Pressure Injury [facility] Pressure Injury Staging: Deep Tissue Wound [...] piece on hip cut a dime sized akiak in the drape. Place Sensitrack. Place more [...] keep anatomic position of ankle. Please contact [facility] RNs if you have any question or concerns regarding wound care. Paty Duque R.N., LAK[place] at [phone] Martine Deluna R.N., WEI at [phone] * Carolyn Blackburn, [facility]-SOFTWARE TEST ENGINEER - 02/23/2025 9:49 AM CDT Consults Speech Pathology Clinical Swallow Evaluation - Inpatient SUBJECTIVE Patient: Ren Ramirez Room: [facility] Referring/Attending Provider: Nelson Chand M.D. Medical Diagnosis: Encephalopathy Metabolic [G93.41] Payor: MEDICA / Plan: [employer]ICA [employer] / Product Type: HMO / Reason for SOFTWARE TEST ENGINEER Referral: dysphasia Onset Date: 02/22/2025 Past Medical / Surgical History: Problem List[1] Medical History[2] Surgical History[3] History of Present Illness: Ren Ramirez is a 75 y.o. male who was admitted to [facility] in [place] on 02/22/2025 due to Encephalopathy Metabolic [G93.41] [...] patient and caregivers regarding impressions, recommendations, and SOFTWARE TEST ENGINEER plan of care. 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) Abdominal Pain Hematemesis Hematochezia Nausea COVID-19 Infection Apnea Sleep Obstructive Lymphedema Weakness General Body Mass Index 33.0 To 33.9 Adult Acute Cystitis With Hematuria Fracture Femoral Condyle Closed Initial Right (HCC) Fracture Hip Closed Initial Right ([facility]) Osteoporosis Hip With Pathological Fracture Initial Right ([facility]) Open Reduction Internal Fixation Hip Status Post Paraplegia ([facility]) Embolus Pulmonary ([facility]) Acute Embolism And Thrombosis Of Other [...] was in place patient was admitted to [facility] on 02/22 with altered mental status. REVIEW [...] Date/Time Bacterial Culture, Aerobic + Susceptibility, Urine [[id number]] Collected: 02/22/25501 Lab Status: In process Specimen: Urine, Indwelling Catheter Updated: 02/22/25 0511 SARS CoV-2, Influenza A/B, RSV, PCR Symptomatic [[id number]] Collected: 02/22/25 050 Lab Status: Final result Specimen: Swab from Nasopharynx Updated: 02/22/25 0640 Influenza A, PCR Undetected Comment: Influenza A viral RNA absent. Influenza B, PCR Undetected Comment: Influenza B viral RNA absent. Respiratory Syncytial Virus, PCR Undetected Comment: RSV RNA absent. [id number], PCR Undetected Comment: SARS-CoV-2 RNA absent. ----ADDITIONAL INFORMATION---- This RT-PCR test using the Xpert Xpress SARS-CoV-2/Flu/RSV assay ([employer] performed on the GeneXNavarik systems has received Emergency Use Authorization (EUA) by the U.S. Food and Drug Administration. Performance characteristics were verified by [facility] in a manner consistent with CLIA requirements. Fact sheets for this Emergency Use Authorization (EUA) assay can be found at the following links: For Healthcare Providers: https://www.fda.gov/media/906584/download For Patients: https://www.fda.gov/media/837314/download Specimen Source Swab, Nasopharynx Bacteria / Bautista Culture, Blood #2 [[id number]] Collected: 02/22/25434 Lab Status: In process Specimen: Blood, Peripheral Draw Updated: 02/22/25448 Narrative: Specimen Information: Specimen ID: [id number] Specimen Source: Blood, Peripheral Draw Specimen Comment: Specimen Source Site: Blood Specimen Collection Start Date: 02/22/2025 4:35 AM Specimen Received Date: 02/22/2025 4:48 AM Specimen ID: [id number] Specimen Source: Blood, Peripheral Draw Specimen Comment: Specimen Source Site: Blood Specimen Collection Start Date: 02/22/2025 4:35 AM Specimen Received Date: 02/22/2025 4:48 AM Specimen ID: [id number] Specimen Source: Blood, Peripheral Draw Specimen Comment: Specimen Source Site: Blood Specimen Collection Start Date: 02/22/2025 4:35 AM Specimen Received Date: 02/22/2025 4:48 AM Bacteria / Bautista Culture, Blood #1 [[id number]] Collected: 02/22/25427 Lab Status: In process Specimen: Blood, Peripheral Draw Updated: 02/22/25448 Narrative: Specimen Information: Specimen ID: [id number] Specimen Source: Blood, Peripheral Draw Specimen Comment: Specimen Source Site: Blood Specimen Collection Start Date: 02/22/2025 4:28 AM Specimen Received Date: 02/22/2025 4:48 AM Specimen ID: [id number] Specimen Source: Blood, Peripheral Draw Specimen Comment: Specimen Source Site: Blood Specimen Collection Start Date: 02/22/2025 4:28 AM Specimen Received Date: 02/22/2025 4:48 AM Specimen ID: [id number] Specimen Source: Blood, Peripheral Draw Specimen Comment: [...] with altered mental status and transferred to [place] for further workup. Patient was foundto a [...] to person, place, and time. INTERVENTIONS This inspector automatic typewriter completed a chart review. DEANGELO Damon completed a psychosocial assessment and baseline assessment of the patient on 08/09/24. Per Loida's information, [facility]. The patient's baseline assessment [...] and provides the patient with meals. This inspector automatic typewriter has sent a reconnection referral to [facility]. This inspector automatic typewriter anticipates that an updated baseline assessment from this facility would be best obtained on Monday if needed. The patient has a [facility] [place] policy, which would indicate that the patient should have a medical assistance covered bed hold in place. PLAN This inspector automatic typewriter anticipates that the patient will return to [facility] at thetime of discharge. Social Work will continue to follow and assist as needed or requested. 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), and Sleep Apnea. Social History: from [facility] Food and Nutrition Related History Previous Diet: Pt recently seen 2wks ago by [facility]. Appetite noted to be poor at that time due to tastechanges and not liking food at his facility (from [facility]). Pt admitted in with [facility] was agitated [...] Muscle Mass: Normal Fluid Accumulation: Absent Reduced Ammunition Specialist Strength: Not applicable This is in the [...] Weight: 107 kg BMI (Calculated): 31.8 kg/m?? [place] Body Weight (Calculated) : 77.6 kg % [place] Body Weight: 137 % IBW Adjusted Body [...] DISCHARGE Wheelchair TRANSPORTATION Wheelchair Van ACCOMPANIED BY YIELD LOSS INSPECTOR All belongings sent home with patient. Nurse [...] PLAN OF CARE: Possible DC 02/27 to [facility] with wheelchair van to transport. Problem: [...] on for safety. * Vivian Smith R.N., [facility] - 02/26/2025 2:11 PM CDT Images from [...] right side Wound #1 Type: Pressure Injury [facility] Pressure Injury Staging: Stage 4 Wound Location: Sacrum/Low back Wound Orientation: Mid Wound Tunnel/Induration: Length 2.5 cm, Width 2.5 cm, Depth 1.5 cm, and Undermining 2.0 cm at 1 o'clock . Wound Bed Tissue: Red, Clean, and Granulation tissue 100% Isatu-Wound Skin: Blanchable erythema, Denuded, Fragile, and Red Wound Drainage Amount and Appearance: Serosanguineous Wound #2 Type: Pressure Injury [facility] Pressure Injury Staging: Stage 4 Wound Location: Ischial Tuberosity Wound Orientation: Left Wound Tunnel/Induration: Length 6 cm, Width 3.5 cm, Depth 3.5 cm, and Undermining 3.3 cm at 9-6 o'clock . Wound Bed Tissue: Red, Yellow, Granulation 75% 25% Slough Isatu-Wound Skin: Blanchable erythema, Denuded, Fragile, and Red Wound Drainage Amount and Appearance: Serosanguineous Wound #3 Type: Pressure Injury [facility] Pressure Injury Staging: Deep Tissue Wound [...] piece on hip cut a dime sized akiak in the drape. Place Sensitrack. Place more [...] keep anatomic position of ankle. Please contact [facility] RNs if you have any question or concerns regarding wound care. Paty Duque R.N., CWON at [phone] Martine Deluna R.N., CWCN at [phone] * Aislinn Isbell - 02/26/2025 4:55 AM [...] 02/25/2025 Joining in person: Samantha Consult Location 3934 Updated bedside nurse , Dr. Chand, and [...] however, did refuse most morning meds and SOFTWARE TEST ENGINEER evaluation, thus NPO all day. Wound care [...] previous wound vac that was removed at [facility]. Potassium was high in am provider [...] and bowel. Patient presented from SNF to [facility] Emergency Department 02/21 due to altered mental [...] in [facility] and also imaging studies at [facility] showed: CT head Impression: No acute hemorrhage [...] collection. The patient was eventually transferred to [facility] for further care, as it was [...] Comprehensive Visit Department of General Surgery in [place], [place] [address] [place] [phone] Roland Benson D.O. [address] [place] [phone] Discharge Disposition: Home or Self Care Scheduled Orders Name Type Priority Associated Diagnoses Orde r Schedule [facility] Wound care Procedures Routine Pressure Injury (Ulcer) [...] POCT, B Routine 02/24/2025 5:07 PM CDT TX NEG PRESS WND THRPY <=50SCM Routine 02/24/2025 12:15 PM CDT Pressure Ulcer Of Unspecified Site Stage 4 (HCC) TX NEG PRESS WND THRPY <=50SCM Routine 02/24/2025 [...] POCT (02/27/2025 11:38 AM CDT) Pathologist [facility] Glucose, POCT, B 137 70 - 140 mg/dL 02/27/2025 11:38 AM CDT MKTO Blood 02/27/2025 11:3 8 AM CDT 02/27/2025 11:48 AM CDT us Generic Rals LAB POCT ORDERABLES-MANUAL Final Result [facility] [address] [place] [address], [facility] MKTO [facility] in [address] [address] * Place midline catheter (single lumen) (02/27/2025 [...] Generic [facility] LAB POCT ORDERABLES-MANUAL Final Result [facility] [place] [address], [facility] MKTO [facility] [place] [address] [place] [address] * (ABNORMAL) Comprehensive Metabolic Panel (02/27/2025 6:37 [...] Sung M.D. LAB BLOOD ADD-ON Final Result [facility] [address] [place] [address] * Glucose, POCT (02/26/2025 8:02 PM CDT) Glucose, POCT, B 131 70 - 140 mg/dL 02/26/2025 8:02 PM CDT MKTO Blood 02/26/2025 8:02 PM CDT 02/26/2025 8:58 PM CDT us Generic Rals LAB POCT ORDERABLES-MANUAL Final Result [facility] [address] [place] [address] * (ABNORMAL) Glucose, POCT (02/26/2025 4:07 PM CDT) Glucose, POCT, B 168(H) 70 - 140 mg/dL 02/26/2025 4:[address] [facility] Blood 02/26/2025 4:07 PM CDT 02/26/2025 4:20 PM CDT us Generic Rals LAB POCT ORDERABLES-MANUAL Final Result [facility] [place] [address], [facility] MKTO [place] [address] * Wound Vac (02/26/2025 2:08 PM CDT) [...] AM CDT 02/26/2025 11:49 AM CDT Result [facility] [employer] LAB POCT ORDERABLES-MANUAL Final Result Performing Organization Address City/[facility] Co de Phone Number [facility] [address] [place] [address], [facility] MKTO [facility] in [address] [address] * Glucose, POCT (02/26/2025 7:23 AM CDT) Glucose, POCT, B 126 70 - 140 mg/dL 02/26/2025 7:23 AM CDT MKTO Blood 02/26/2025 7:23 AM CDT 02/26/2025 7:32 AM CDT [facility] POCT ORDERABLES-MANUAL Final Result Performing Organization Address City/[facility]/ZIP Co de Phone Number [facility] [address] [place] [address], [place] MKTO [facility] [place] [address] [place] [address] * (ABNORMAL) Comprehensive Metabolic Panel (02/26/2025 6:21 [...] Chand M.D. LAB BLOOD ADD-ON Final Result [facility] [address] [place] [address], [facility] MKTO [facility] [place] [address] [place] [address] * (ABNORMAL) CBC with Differential, Blood (02/26/2025 [...] Chand M.D. LAB BLOOD ADD-ON Final Result [facility] [address] [place] [address], [place] [address] * (ABNORMAL) Glucose, POCT (02/25/2025 8:17 PM CDT) Glucose, POCT, B 148(H) 70 - 140 mg/dL 02/25/2025 8:17 PM CDT MKTO Blood 02/25/2025 8:17 PM CDT 02/25/2025 8:49 PM CDT us Generic [facility] LAB POCT ORDERABLES-MANUAL Final Result [facility] [address] [place] [address], [place] [address] * Glucose, POCT (02/25/2025 4:13 PM CDT) Glucose, POCT, B 134 70 - 140 mg/dL 02/25/2025 4:13 PM CDT MKTO Blood 02/25/2025 4:13 PM CDT 02/25/2025 4:19 PM CDT us Generic [facility] LAB POCT ORDERABLES[place] [address], [place] [address] * (ABNORMAL) Glucose, POCT (02/25/2025 11:22 AM CDT) Glucose, POCT, B 141(H) 70 - 140 mg/dL 02/25/2025 11:22 AM CDT MKTO Blood 02/25/2025 11:2 2 AM CDT 02/25/2025 11:30 AM CDT us Generic [facility]als LAB POCT ORDERABLES-MANUAL Final Result Performing Organization Address City[facility] [place] [address], [place] [address] * (ABNORMAL) Hepatic Function Panel (02/25/2025 7:59 [...] Chand M.D. LAB BLOOD ADD-ON Final Result [facility] [address] [place] [address], [facility] MKTO [facility] [place] [address] [place] [address] * (ABNORMAL) Basic Metabolic Panel (02/25/2025 7:59 [...] Chand M.D. LAB BLOOD ADD-ON Final Result [facility] [address] [place] [address], [place] MKTO [facility] [place] [address] [place] [address] * (ABNORMAL) CBC with Differential, Blood (02/25/2025 [...] BLOOD ADD-ON Final Result Performing Organization Address City[facility]/ZIP Co de Phone Number [facility] [address] [place] [address], [place] [address] * Glucose, POCT (02/25/2025 6:51 AM CDT) Glucose, POCT, B 127 70 - 140 mg/dL 02/25/2025 6:51 AM CDT MKTO Blood 02/25/2025 6:51 AM CDT 02/25/2025 6:59 AM CDT us Generic [facility]als LAB POCT ORDERABLES-MANUAL Final Result Performing Organization Address [facility] Co de Phone Number [facility] [address] [place] [address], [address] [address] * (ABNORMAL) Glucose, POCT (02/24/2025 9:29 PM CDT) Glucose, POCT, B 160(H) 70 - 140 mg/dL 02/24/2025 9:29 PM CDT MKTO Blood 02/24/2025 9:29 PM CDT 02/24/2025 9:37 PM CDT us Generic [facility] LAB POCT ORDERABLES-MANUAL Final Result Performing Organization Address City[facility]/ZIP Co de Phone Number [facility] [address] [place] [address], [address] [address] * Glucose, POCT (02/24/2025 5:07 PM CDT) Glucose, POCT, B 111 70 - 140 mg/dL 02/24/2025 5:07 PM CDT MKTO Blood 02/24/2025 5:07 PM CDT 02/24/2025 5:15 PM CDT us Generic [facility] LAB POCT ORDERABLES-MANUAL Final Result [facility] [address] [place] [address], [facility] MKTO [facility] [place] [address] [place] [address] * [place] NEG PRESS WND THRPY <=50SCM (02/24/2025 12:15 [...] PROCEDURE/MINOR SURGICAL ORDERAB LES Final Result * TX NEG PRESS WND THRPY <=50SCM (02/24/2025 12:13 [...] Generic [facility] POCT ORDERABLES-MANUAL Final Result [facility] [place] [address], [place] TO [facility] in [address] [address] * Glucose, POCT (02/24/2025 5:44 AM CDT) Glucose, POCT, B 102 70 - 140 mg/dL 02/24/2025 5:44 AM CDT MKTO Blood 02/24/2025 5:44 AM CDT 02/24/2025 9:13 PM CDT us Generic [facility] LAB POCT ORDERABLES-MANUAL Final Result Performing Organization Address City[facility]/ZIP Co de Phone Number [facility] [address] [place] [address], [facility] [place] [address] [place] [address] * (ABNORMAL) Basic Metabolic Panel (02/24/2025 5:44 AM CDT) Pathologist [facility] Potassium, P 4.1 3.6 - 5.2 mmol/L [...] Chand M.D. LAB BLOOD ADD-ON Final Result [facility] [address] [place] [address], [facility] MKTO [facility] [place] [address] [place] [address] * (ABNORMAL) CBC with Differential, Blood (02/24/2025 [...] Chand M.D. LAB BLOOD ADD-ON Final Result [facility] [address] [place] [address], [facility] [address] [place] [address] * (ABNORMAL) Hepatic Function Panel (02/24/2025 5:44 [...] Chand M.D. LAB BLOOD ADD-ON Final Result [facility] [address] [place] [address], [facility] in [address] [address] * Glucose, POCT (02/23/2025 8:28 PM CDT) Glucose, POCT, B 132 70 - 140 mg/dL 02/23/2025 8:28 PM CDT MKTO Blood 02/23/2025 8:28 PM CDT 02/23/2025 8:36 PM CDT us Generic [facility]als LAB POCT ORDERABLES-MANUAL Final Result [facility] [address] [place] [address], [address] [address] * Glucose, POCT (02/23/2025 4:41 PM CDT) Glucose, POCT, B 92 70 - 140 mg/dL 02/23/2025 4:41 PM CDT MKTO Blood 02/23/2025 4:41 PM CDT 02/23/2025 4:51 PM CDT us Generic [facility] LAB POCT ORDERABLES-MANUAL Final Result Performing Organization Address [facility]/ZIP Co de Phone Number [facility] [address] [place] [address], [facility] [address] [place] [address] * Glucose, POCT (02/23/2025 11:06 AM CDT) Glucose, POCT, B 113 70 - 140 mg/dL 02/23/2025 11:06 AM CDT MKTO Blood 02/23/2025 11:0 6 AM CDT 02/23/2025 12:11 PM CDT us Generic Rals LAB POCT ORDERABLES-MANUAL Final Result [facility] [address] [place] [address], [facility] [address] [place] [address] * Glucose, POCT (02/23/2025 8:11 AM CDT) Glucose, POCT, B 111 70 - 140 mg/dL 02/23/2025 8:11 AM CDT MKTO Blood 02/23/2025 8:11 AM CDT 02/23/2025 8:17 AM CDT us Generic Rals LAB POCT ORDERABLES-MANUAL Final Result [facility] [place] [address], [facility] MKTO [facility] [place] [address] [place] [address] * (ABNORMAL) Basic Metabolic Panel (02/23/2025 6:17 [...] BLOOD ADD-ON Final Result Performing Organization Address [facility]/ZIP Co de Phone Number [facility] [address] [place] [address] * (ABNORMAL) Uric Acid (02/23/2025 6:17 AM CDT) Uric Acid, P 10.9(H) 3.7 - 8.0 mg/dL 02/23/2025 8:52 AM CDT MKTO Blood (Blood, Venous) 02/23/2025 6:17 AM CDT 02/23/2025 8:40 AM CDT us Nelson Chand M.D. LAB BLOOD ADD-ON Final Result Performing Organization Address [facility] Co de Phone Number [facility] [address] [place] [address], [place] [address] * (ABNORMAL) Hepatic Function Panel (02/23/2025 6:17 [...] Chand M.D. LAB BLOOD ADD-ON Final Result [facility] [address] [place] [address], [address] [address] * Glucose, POCT (02/22/2025 9:06 PM CDT) Glucose, POCT, B 122 70 - 140 mg/dL 02/22/2025 9:06 PM CDT MKTO Blood 02/22/2025 9:06 PM CDT 02/22/2025 10:13 PM CDT us Generic Rals LAB POCT ORDERABLES-MANUAL Final Result Performing Organization Address [facility]/ZIP Co de Phone Number [facility] [address] [place] [address], [address] [address] * Glucose, POCT (02/22/2025 5:00 PM CDT) Glucose, POCT, B 140 70 - 140 mg/dL 02/22/2025 5:00 PM CDT MKTO Blood 02/22/2025 5:00 PM CDT 02/22/2025 5:21 PM CDT us Generic Rals LAB POCT ORDERABLES-MANUAL Final Result Performing Organization Address [facility]/ZIP Co de Phone Number [facility] [address] [place] [address], [place] [id number] [place] [address] * IR Percutaneous Cholecystostomy Tube Check (02/22/2025 [...] Patient education provided by a care steam plant control room operator. Patient's family member was ready to learn with no apparent learning barriers were identified. Post-procedure care explained; patient's family member expressed understanding of the content. PROCEDURE DETAILS: Sedation: None. Sedation time: Not applicable. Estimated Blood Loss: None. TECHNIQUE: The indwelling 14 Libyan drainage catheter was injected with contrast, and [...] current medications. Patient education provided by acare steam plant control room operator. Patient's family member was ready to learn with noapparent learning barriers were identified. Post-procedure care explained;patient's family member expressed understanding of the content. PROCEDURE DETAILS: Sedation: None. Sedation time: Not applicable. Estimated Blood Loss: None. TECHNIQUE: The indwelling 14 Libyan drainage catheter was injected with contrast, andmultiple [...] Chand M.D. LAB BLOOD ADD-ON Final Result [facility] [address] [place] [address], [facility] [place] [address] * (ABNORMAL) Basic Metabolic Panel (02/22/2025 3:13 [...] Chand M.D. LAB BLOOD ADD-ON Final Result [facility] [address] [place] [address], [facility] [place] [address] * RAD US Joint Aspiration and or [...] Patient education provided by a care steam plant control room operator. Patient's family member was ready to learn [...] current medications. Patient education provided by acare steam plant control room operator. Patient's family member was ready to learn [...] FLUIDS AND STOOLS ORDER TOMY Final Result [facility] [address] [place] [address], [facility] MKTO [facility] in [address] [place] [address] * Cell Count and Differential, Body Fluid (02/22/2025 12:30 PM CDT) Fluid Type RightWrist 02/22/2025 2:18 PM CDT MKTO Gross Appearance Slightly Cloudy 02/22/2025 2:18 PM CDT MKTO Total Nucleated Cells 150 /mcL 02/22/2025 2:18 PM CDT MKTO Comment: ----REFERENCE VALUE---- Synovial: <150 Peritoneal: <500 Pleural: <500 Pericardial: <500 ----ADDITIONAL INFORMATION---- This test has been modified from the refractory specialist's instructions. Its performance characteristics were determined by [facility] in a manner consistent with CLIA requirements. [...] STOOLS ORDER TOMY Edited Result - Final [facility] [address] [place] [address], [place] MKTO [facility] in [address] [address] * Gram Stain (02/22/2025 12:30 PM CDT) Gram Stain No organisms seen. White blood cells present. Stain performed on concentrated cytospin preparation. 02/22/2025 2:[address] [facility] Fluid (Synovial Fluid, Right Wrist) 02/22/2025 12:30 PM CDT 02/22/2025 12:48 PM CDT Comment:Specimen Source Site : Fluid us Nelson Chand M.D. LAB MICROBIOLOGY - GENERAL ORDER TOMY Final Result Performing Organization Address [facility] Co de Phone Number [facility] [address] [place] [address], [place] [address] * Bacterial Culture, Anaerobic + Susceptibility (02/22/2025 12:30 PM CDT) Bacterial Culture, Anaerobic No growth after 7 days of incubation. 03/01/2025 7:49 AM CDT [facility] Fluid (Synovial Fluid, Right Wrist) 02/22/2025 12:30 PM CDT 02/22/2025 12:48 PM CDT Comment:Specimen Source Site : Fluid us Nelson Chand M.D. LAB MICROBIOLOGY - GENERAL ORDER TOMY Final Result Performing Organization Address [facility] Co de Phone Number [facility] [address] [place] [address], [address] [address] * Bacterial Culture, Aerobic + Susceptibility (02/22/2025 12:30 PM CDT) Bacterial Culture, Aerobic + Susc No growth after 5 days of incubation. 02/27/2025 6:42 AM CDT [facility] Fluid (Synovial Fluid, Right Wrist) 02/22/2025 12:30 PM CDT 02/22/2025 12:48 PM CDT Comment:Specimen Source Site : Fluid us Nelson Chand M.D. LAB MICROBIOLOGY - GENERAL ORDER TOMY Final Result Performing Organization Address [facility] Co de Phone Number [facility] [address] [place] [address], [place] [address] * (ABNORMAL) Glucose, POCT (02/22/2025 11:12 AM CDT) Glucose, POCT, B 146(H) 70 - 140 mg/dL 02/22/2025 11:12 AM CDT MKTO Blood 02/22/2025 11:1 2 AM CDT 02/22/2025 11:20 AM CDT Generic Rals LAB POCT ORDERABLES-MANUAL Final Result Performing Organization Address [facility] Co de Phone Number [facility] [address] [place] [address], [address] [address] * Glucose, POCT (02/22/2025 7:56 AM CDT) Glucose, POCT, B 137 70 - 140 mg/dL 02/22/2025 7:56 AM CDT MKTO Blood 02/22/2025 7:56 AM CDT 02/22/2025 8:08 AM CDT Generic Rals LAB POCT ORDERABLES-MANUAL Final Result Performing Organization Address [facility]/ZIP Co de Phone Number [facility] [address] [place] [address], [place] [address] * ECG 12 Lead (02/22/2025 6:47 AM CDT) Ventricular Rate ECG/Min 98 BPM MUSE TX Interval 206 ms MUSE QRSD Interval 90 ms MUSE QT Interval 316 ms MUSE QTC Interval 403 ms MUSE P [place] 68 degrees MUSE R [place] 11 degrees MUSE T Wave [place] 69 degrees MUSE 02/22/2025 6:47 AM CDT [...] PCR Symptomatic (02/22/2025 5:02 AM CDT) Pathologist [facility] Influenza A, PCR Undetected Undetected 02/23/20 6:40 [...] test using the Xpert Xpress SARS-CoV-2/Flu/RSV assay ([employer] performed on the GeneXYouLike DX systems has received Emergency Use Authorization (EUA) by the U.S. Food and Drug Administration. Performance characteristics were verified by [facility] in a manner consistent with CLIA requirements. Fact sheets for this Emergency Use Authorization (EUA) assay can be found at the following links: For Healthcare Providers: https://www.fda.gov/media/081740/download For Patients: https://www.fda.gov/media/534380/download Specimen Source Swab, Nasopharynx 02/22/2025 5:08 AM CDT MKTO Swab (Nasopharynx) 02/22/2025 5:02 AM CDT 02/22/2025 5:08 AM CDT us Nneka Yañez M.D. LAB MICROBIOLOG Y - GENERAL ORDERABLES Final Result Performing Organization Address [facility]/ZIP Co de Phone Number [facility] [address] [place] [address], [place] [address] * Bacterial Culture, Aerobic + Susceptibility, Urine (02/22/2025 5:02 AM CDT) [facility] Urine Culture No growth after 1 day of incubation. 02/23/2025 8:47 AM CDT MKTO Urine (Urine, Indwelling Catheter) 02/22/2025 5:02 AM CDT 02/22/2025 5:11 AM CDT Comment:Specimen Source Site : Urine us Nneka SuarezBAmparoBShankar [place] LAB MICROBIOLOG Y - GENERAL ORDERABLES Final Result Performing Organization Address [facility]/ZIP Co de Phone Number [facility] [address] [place] [address], [place] [address] * (ABNORMAL) Urinalysis, Dipstick (02/22/2025 5:02 AM [...] 8.0 02/22/2025 5:17 AM CDT MKTO Specific [place] >1.035(A) 1.001 - 1.035 02/22/2025 5:17 AM CDT MKTO Urobilinogen 1.0 0.2 - 1.0 mg/dL 02/22/2025 5:17 AM CDT MKTO Urine (Urine, Midstream) 02/22/2025 5:02 AM CDT 02/22/2025 5:17 AM CDT us Nneka Yañez M.D. LAB URINE ORDER TOMY Final Result [facility] [address] [place] [address], [facility] MKTO [place] [address] * DX Knee Right 4+ Views (02/22/2025 [...] Chondrocalcinosis. Small suprapatellar spur. Nneka RaderBAmparoSShankar Christensen [facility] Final Result * DX [...] although to a much lesser degree than [id number]. Nneka SuarezB.B.SShankar Christensen [facility] Final Result * Bacteria [...] GENERAL ORDERABLES Final Result Performing Organization Address [facility]/ZIP Co de Phone Number [facility] [address] [place] [address], [address] [address] * Lactate for Sepsis with Reflex (02/22/2025 4:28 AM CDT) Lactate, B 1.9 0.5 - 2.2 mmol/L 02/22/2025 5:01 AM CDT [facility] Blood (Blood, Venous) 02/22/2025 4:28 AM CDT 02/22/2025 4:48 AM CDT us Nneka Yañez M.D. LAB BLOOD NON A DD-ON Final Result Performing Organization Address [facility] Co de Phone Number [facility] [address] [place] [address], [place] [address] * Bacteria / Bautista Culture, Blood #1 (02/22/2025 4:28 AM CDT) Bacteria/Vannessa da Culture, Blood No growth after 5 day/s of incubation. 02/27/2025 5:05 AM CDT [facility] Blood (Blood, Peripheral Draw) 02/22/2025 4:28 AM CDT 02/22/2025 4:48 AM CDT Comment:Specimen Source Site : Blood us Nneka Yañez M.D. LAB MICROBIOLOG Y - GENERAL ORDERABLES Final Result Performing Organization Address [facility]/ZIP Co de Phone Number [facility] [address] [place] [address], [place] MKTO [facility] [address] [place] [address] * (ABNORMAL) Comprehensive Metabolic Panel (02/22/2025 4:28 [...] M.D. LAB BLOOD ADD-O N Final Result [facility] [address] [place] [address], [facility] MKTO [facility] [address] [place] [address] * (ABNORMAL) CBC with Differential, Blood (02/22/2025 [...] ADD-O N Final Result Performing Organization Address [facility]/ZIP Co de Phone Number [facility] [address] [place] [address] * (ABNORMAL) Glucose, POCT (02/22/2025 1:28 AM CDT) [facility] Glucose, POCT, B 148(H) 70 - 140 mg/dL 02/22/2025 1:28 AM CDT MKTO Blood 02/22/2025 1:28 AM CDT 02/22/2025 1:35 AM CDT us Generic Rals LAB POCT ORDERABLES-MANUAL Final Result Performing Organization Address [facility] Co de Phone Number [facility] [address] [place] [address], [place] [address] documented in this encounter Visit Diagnoses Diagnosis [...] needed, Between Consecutive Piggyback Medications, Starting on [facility] 02/22/25 at 0017, For 7 days, [...] infusion 75 mL/hr, intravenous, Continuous, Starting on [facility] 02/22/25 at 0200, For 12 hours [...] tablet. 0614 (Given - Provider: Spring Salmeron R.N.)1501 (Given - Provider: Iris Garcia R.N.) [...] of this encounter Care Teams Director Of Parks And Recreation Relationship Specialty Start Date End Date Jeff Reyes M.D. [address] [place] [phone] PCP - General 03/14/24 documented as of this encounter
--- OUTSIDE RECORDS SUMMARY | 2025-02-22 00:35 | XMS_ITS | Encounter Summary ---
Author Organization [facility] Address [address] [place] [address] Care Team Providers Care Harpooner Name Role Phone Jeff Reyes M.D. Primary Care Provider [phone] Encounter Details Date Type Department Care Team [...] daily living? Patient unable to answer 02/22/2025 [facility] Utilities Answer Date Recorded In the past 12 months has th [employer] electric, gas, oil, or water company threatened [...] Sex Assigned at Male 06/26/2018 4:20 PM SIX HORSE HITCH DRIVER Legal Sex Male 3:33 AM SIX HORSE HITCH DRIVER Gender Identity Not on file Sexual Orientation Not on file documented as of this encounter Plan of Treatment Upcoming Encounters Date Type Department Care Team (Latest Contact Info) Description 04/28/2025 1:00 PM CDT Comprehensive Visit Department of General Surgery in [place] [address] [place] [phone] Roland Benson D.O. [address] [place] [phone] Discharge Disposition: Home or Self Care documented [...] documented as of this encounter Care Teams Harpooner Relationship Specialty Start Date End Date Jeff Reyes M.D. [address] [place] [phone] PCP - General 03/14/24 documented as of this encounter
--- OUTSIDE RECORDS SUMMARY | 2025-02-22 00:35 | XMS_ITS | Encounter Summary ---
Author Organization [facility] Address [address] [place] [address] Care Team Providers Care Assistant Maintenance Manager Name Role Phone Jeff Reyes M.D. Primary Care Provider [phone] Encounter Details Date Type Department Care Team [...] daily living? Patient unable to answer 02/22/2025 [facility] Utilities Answer Date Recorded In the past 12 months has th [employer] electric, gas, oil, or water company threatened [...] Sex Assigned at Male 06/26/2018 4:20 PM BANKING ATTORNEY Legal Sex Male 3:33 AM BANKING ATTORNEY Gender Identity Not on file Sexual Orientation Not on file documented as of this encounter Plan of Treatment Upcoming Encounters Date Type Department Care Team (Latest Contact Info) Description 04/28/2025 1:00 PM CDT Comprehensive Visit Department of General Surgery in [place] [address] [place] [phone] Roland Benson D.O. [address] [place] [phone] Discharge Disposition: Home or Self Care documented [...] documented as of this encounter Care Teams Assistant Maintenance Manager Relationship Specialty Start Date End Date Jeff Reyes M.D. [address] [place] [phone] PCP - General 03/14/24 documented as of this encounter
--- OUTSIDE RECORDS SUMMARY | 2025-02-24 11:15 | XMS_ITS | Encounter Summary ---
Author Organization [facility] Address [address] [place] [address] Care Team Providers Care General Machine Operator Name Role Phone Jeff Reyes M.D. Primary Care Provider [phone] Encounter Details Date Type Department Care Team (Late st Contact Info) Description 02/24/2025 11:15 AM CDT Ancillary Procedure Department of Wound Ostomy Social History Tobacco Use Types Packs/Day Years [...] daily living? Patient unable to answer 02/22/[address] [facility] Utilities Answer Date Recorded In the past 12 months has th [employer] electric, gas, oil, or water company threatened [...] Assigned at Male 06/26/2018 4:20 PM SPANISH MOSS PICKER Legal Sex Male 3:33 AM SPANISH MOSS PICKER Gender Identity Not on file Sexual Orientation Not on file documented as of this encounter Plan of Treatment Upcoming Encounters Date Type Department Care Team (Latest Contact Info) Description 04/28/2025 1:00 PM CDT Comprehensive Visit Department of General Surgery in [place], [place] [address] [place] [phone] Roland Benson D.O. [address] [place] [phone] Discharge Disposition: Home or Self Care documented as of this encounter Procedures Procedure Name Priority Date/Time Associated Diagnosis Comments WOUND OSTOMY IMAGE EXAM Routine 02/24/2025 11:15 AM CDT documented in this encounter Results * Buttocks 527a-Wound Ostomy Image Exam (02/24/2025 11:15 AM CDT) 02/24/2025 11:1 4 AM CDT Narrative IIMS - 02/24/2025 11:17 AM CDT This order has been created [...] documented as of this encounter Care Teams General Machine Operator Relationship Specialty Start Date End Date Jeff Reyes M.D. [address] [place] [phone] PCP - General 03/14/24 documented as of this encounter
--- OUTSIDE RECORDS SUMMARY | 2025-02-24 11:20 | XMS_ITS | Encounter Summary ---
Author Organization [facility] Address [address] [place] [address] Care Team Providers Care Retail Operations Manager Name Role Phone Jeff Reyes M.D. Primary Care Provider [phone] Encounter Details Date Type Department Care Team [...] In the past 12 months has th [employer] electric, gas, oil, or water company threatened [...] Sex Assigned at Male 06/26/2018 4:20 PM MELTER SUPERVISOR OXYGEN FURNACE Legal Sex Male 3:33 AM MELTER SUPERVISOR OXYGEN FURNACE Gender Identity Not on file Sexual Orientation Not on file documented as of this encounter Plan of Treatment Upcoming Encounters Date Type Department Care Team (Latest Contact Info) Description 04/28/2025 1:00 PM CDT Comprehensive Visit Department of General Surgery in [place], [place] [address] [place] [address] Roland Benson D.O. [address] [place] [address] Discharge Disposition: Home or Self Care documented [...] documented as of this encounter Care Teams Retail Operations Manager Relationship Specialty Start Date End Date Jeff Reyes M.D. [address] [place] [phone] PCP - General 03/14/24 documented as of this encounter
--- OUTSIDE RECORDS SUMMARY | 2025-02-24 11:25 | XMS_ITS | Encounter Summary ---
Author Organization [facility] Address [address] [place] [address] Care Team Providers Care Antisqueak Filler Name Role Phone Jeff Reyes M.D. Primary Care Provider [phone] Encounter Details Date Type Department Care Team [...] daily living? Patient unable to answer 02/22/2025 [facility] Utilities Answer Date Recorded In the past 12 months has th [employer] electric, gas, oil, or water company threatened [...] Assigned at Male 06/26/2018 4:20 PM DIRECTOR CHECK Legal Sex Male 3:33 AM DIRECTOR CHECK Gender Identity Not on file Sexual Orientation Not on file documented as of this encounter Plan of Treatment Upcoming Encounters Date Type Department Care Team (Latest Contact Info) Description 04/28/2025 1:00 PM CDT Comprehensive Visit Department of General Surgery in [place], [place] [address] [place] [address] Roland Benson D.O. [address] [place] [address] Discharge Disposition: Home or Self Care documented [...] documented as of this encounter Care Teams Antisqueak Filler Relationship Specialty Start Date End Date Jeff Reyes M.D. [address] [place] [phone] PCP - General 03/14/24 documented as of this encounter
--- OUTSIDE RECORDS SUMMARY | 2025-02-26 13:15 | XMS_ITS | Encounter Summary ---
Author Organization [facility] Address [address] [place] [address] Care Team Providers Care Search Engine Optimization Manager Name Role Phone Jeff Reyes M.D. Primary Care Provider [phone] Encounter Details Date Type Department Care Team [...] daily living? Patient unable to answer 02/27/2025 [facility] Utilities Answer Date Recorded In the past 12 months has th [employer] electric, gas, oil, or water company threatened [...] Sex Assigned at Male 06/26/2018 4:20 PM DELI/BAKERY ASSOCIATE Legal Sex Male 3:33 AM DELI/BAKERY ASSOCIATE Gender Identity Not on file Sexual Orientation Not on file documented as of this encounter Plan of Treatment Upcoming Encounters Date Type Department Care Team (Latest Contact Info) Description 04/28/2025 1:00 PM CDT Comprehensive Visit Department of General Surgery in [place], [place] [address] [place] [address] Rloand Benson D.O. [address] [place] [address] Discharge Disposition: Home or Self Care documented [...] documented as of this encounter Care Teams Search Engine Optimization Manager Relationship Specialty Start Date End Date Jeff Reyes M.D. [address] [place] [phone] PCP - General 03/14/24 documented as of this encounter
--- OUTSIDE RECORDS SUMMARY | 2025-02-26 13:40 | XMS_ITS | Encounter Summary ---
Author Organization [facility] Address [address] [place] [address] Care Team Providers Care Stockbroking Dealer Name Role Phone Jeff Reyes M.D. Primary Care Provider [phone] Encounter Details Date Type Department Care Team (Late st Contact Info) Description 02/26/2025 1:40 PM CDT Ancillary Procedure Department of Wound [...] daily living? Patient unable to answer 02/27/2025 [facility] Utilities Answer Date Recorded In the past 12 months has th [employer] electric, gas, oil, or water company threatened [...] Sex Assigned at Male 06/26/2018 4:20 PM PROVIDER NETWORK ANALYST Legal Sex Male 3:33 AM PROVIDER NETWORK ANALYST Gender Identity Not on file Sexual Orientation Not on file documented as of this encounter Plan of Treatment Upcoming Encounters Date Type Department Care Team (Latest Contact Info) Description 04/28/2025 1:00 PM CDT Comprehensive Visit Department of General Surgery in [place], [place] [address] [place] [address] Roland Benson D.O. [address] [place] [phone] Discharge Disposition: Home or Self Care documented as of this encounter Procedures Procedure Name Priority Date/Time Associated Diagnosis Comments WOUND OSTOMY IMAGE EXAM Routine 02/26/2025 1:40 PM CDT documented in this encounter Results * Foot right plantar heel 462-Wound Ostomy Image Exam (02/26/2025 1:40 PM CDT) 02/26/2025 1:39 PM CDT Narrative IIMS - 02/26/2025 1:41 PM CDT This order has been created [...] documented as of this encounter Care Teams Stockbroking Dealer Relationship Specialty Start Date End Date Jeff Reyes M.D. [address] [place] [phone] PCP - General 03/14/24 documented as of this encounter
--- OUTSIDE RECORDS SUMMARY | 2025-02-26 13:45 | XMS_ITS | Encounter Summary ---
Author Organization [facility] Address [address] [place] [address] Care Team Providers Care Roof Technician Name Role Phone Jeff Reyes M.D. Primary Care Provider [phone] Encounter Details Date Type Department Care Team [...] daily living? Patient unable to answer 02/27/2025 [facility] Utilities Answer Date Recorded In the past 12 months has th [employer] electric, gas, oil, or water company threatened [...] Sex Assigned at Male 06/26/2018 4:20 PM PHOTO PRINTER Legal Sex Male 3:33 AM PHOTO PRINTER Gender Identity Not on file Sexual Orientation Not on file documented as of this encounter Plan of Treatment Upcoming Encounters Date Type Department Care Team (Latest Contact Info) Description 04/28/2025 1:00 PM CDT Comprehensive Visit Department of General Surgery in [place], [place] [address] [place] [address] Roland Benson D.O. [address] [place] [phone] Discharge Disposition: Home or Self Care documented [...] documented as of this encounter Care Teams Roof Technician Relationship Specialty Start Date End Date Jeff Reyes M.D. [address] [place] [phone] PCP - General 03/14/24 documented as of this encounter
--- OUTSIDE RECORDS SUMMARY | 2025-02-27 09:45 | XMS_ITS | Encounter Summary ---
Author Organization [facility] Address [address] [place] [address] Care Team Providers Care Nutritionist Public Health Name Role Phone Jeff Reyes M.D. Primary Care Provider [phone] Encounter Details Date Type Department Care Team (Late st Contact Info) Description 02/27/2025 9:45 AM CDT Ancillary Procedure Department of Oncology Social History Tobacco Use Types Packs/Day Years [...] daily living? Patient unable to answer 02/27/2025 [facility] Utilities Answer Date Recorded In the past 12 months has th [employer] electric, gas, oil, or water company threatened [...] Sex Assigned at Male 06/26/2018 4:20 PM INFORMATION TECHNOLOGY DATA ANALYST Legal Sex Male 3:33 AM INFORMATION TECHNOLOGY DATA ANALYST Gender Identity Not on file Sexual Orientation Not on file documented as of this encounter Plan of Treatment Upcoming Encounters Date Type Department Care Team (Latest Contact Info) Description 04/28/2025 1:00 PM CDT Comprehensive Visit Department of General Surgery in [place] [address] [place] [address] Roland Benson D.O. [address] [place] [phone] Discharge Disposition: Home or Self Care documented as of this encounter Procedures Procedure Name Priority Date/Time Associated Diagnosis Comments [facility] IMAGE EXAM Routine 02/27/2025 9:45 AM CDT documented in this encounter Results * Vein / Vasc Access-Ambulatory Infusion [facility] Image Exam (02/27/2025 9:45 AM CDT) 02/27/2025 9:45 AM CDT Narrative IIM[facility] - 02/27/2025 12:24 PM CDT This order has been created and auto-finalized to support the import of outside images. If available, original interpretation can be found on the Media Tab in Chart Review, in Document Viewer, as an image in InfinityView or as an Addendum. If a re-interpretation or overread is required please follow defined workflow. us Provider Not In System IMG NON RAD IMAGING PROCE DURES Final Result [facility]IMS NA documented in this encounter Visit Diagnoses Not on filedocumented in this encounter Additional Health Concerns Assessment Noted Time PHQ-9 Depression Total Score: 10 05/26/ 018 11:00 AM CDT documented as of this encounter Care Teams Nutritionist Public Health Relationship Specialty Start Date End Date Jeff Reyes M.D. [address] [place] [phone] PCP - General 03/14/24 documented as of this encounter
--- OUTSIDE RECORDS SUMMARY | 2025-03-04 08:29 | XMS_ITS | Encounter Summary ---
Author Organization [facility] Address [address] [place] [address] Care Team Providers Care Grain Drier Operator Name Role Phone Jeff Reyes M.D. Primary Care Provider [phone] Reason for Referral * MRI/CAT/PET Scan (Routine) - Closed Specialty Diagnoses / Procedures Referred By Jono donohue Referred To Contact Radiology Diagnoses Embolus Pulmonary (HCC) Procedures CT Chest Angiogram and Pulmonary Arteries with IV Contrast CT Chest Angiogram with IV Contrast Pablo Vo M.D. [address] [place] [address] Phone: tel: fax: [facility] Region Referral ID Status Reason Start Date Expiration Date Visits Re quested Visits Authorized [id number] Closed 11/14/2024 02/14/2026 1 1 Reason for Visit * MRI/CAT/PET Scan (Routine) - Closed Specialty Diagnoses / Procedures Referred By Jono donohue Referred To Contact Radiology Diagnoses Embolus Pulmonary (HCC) Procedures CT Chest Angiogram and Pulmonary Arteries with IV Contrast CT Chest Angiogram with IV Contrast Pablo Vo M.D. [address] [place] [address] Phone: tel: fax: [facility] Region Referral ID Status Reason Start Date Expiration Date Visits Re quested Visits Authorized [id number] Closed 11/14/2024 02/14/2026 1 1 Encounter Details Date Type Department Care Team (Latest Contact Info) Description 03/04/2025 8:29 AM CDT - 03/04/2025 11:59 PM CDT Hospital Encounter Department of Radiology in [place], [place] [address] [place] [address] Pablo Vo M.D. [address] [place] [phone] Embolus Pulmonary (HCC) Discharge Disposition: Home or Self Care [...] daily living? 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 08/16/2024 acetic acid 0.25 % irrigation (sterile) Apply [...] topically 2 (two) times a day. 08/10/2023 BD PosiFlush Normal Saline 0.9 injection Use 10 mL via irrigation every day 01/13/2025 calcium carbonate (TUMS) 500 mg (200 mg calcium) chewable tablet Chew 2 tablets (400 mg of calcium total) 2 (two) times a day. 12/22/2022 carbamide peroxide (Debrox) 6.5 % otic solution Administer 5 drops into each ear as needed. cetirizine (ZyrTEC) 10 mg tablet Take 10 mg by mouth at bedtime. cholecalciferol 25 mcg (1,000 unit) tablet Take 1 tablet (25 mcg total) by mouth daily. 08/16/2024 diclofenac sodium (Voltaren) 1 % gelIndications:Mul tiple Sclerosis (HCC) Apply 2 g topically 2 (two) times a day as needed (pain). 08/16/2024 ferrous sulfate tablet Take 325 mg by mouth every other day. fluticasone propionate (Flonase) 50 mcg/actuation nasal spray Administer 1 spray into each nostril 2 (two) times a day. 02/18/2025 furosemide (Lasix) 40 mg tablet Take 40 mg by mouth every morning. latanoprost (XALATAN) 0.005 % ophthalmic solution Administer 1 drop into both eyes daily. 09/19/2022 lisinopriL (PRINIVIL,ZESTRIL) 40 mg tabletIndications: Hypertension Essential Primary Take 1 tablet (40 mg total) by mouth daily. 90 tablet 12/08/2022 metFORMIN XR (Glucophage-XR) 500 mg 24 hr tablet Take 1,000 mg by mouth daily with evening meal. metoprolol succinate (TOPROL-XL) 100 mg 24 hr tabletIndications: Hypertension Essential Primary Take 1 tablet (100 mg total) by mouth daily. Do not crush or chew. 90 tablet 11/13/2022 nitroglycerin (Nitrostat) 0.[address] 0.4 mg under the tongue every 5 (five) minutes as needed for chest pain. 02/05/2025 ondansetron (ZOFRAN) 4 mg tablet Take 4 mg by mouth every 6 (six) hours as needed for nausea or vomiting. 06/23/2023 oxyCODONE (Roxicodone) 5 mg immediate release tabletIndications: Acute Pain Exception Take 1 tablet (5 mg total) by mouth every 6 (six) hours as needed for severe pain or score 7-10 of 10 Indication: Acute Pain Exception. 12 tablet 02/27/2025 pantoprazole (PROTONIX) 40 mg EC tablet Take [...] (two) times a day with meals. 08/16/2024 saliva substitution (Biotene Dry Mouth Oral Rinse) mouthwash Apply 1 Application to the mouth or throat as needed (dry mouth). senna 8.6 mg tablet Take 17.2 mg by mouth every morning. 08/23/2024 sennosides-docusat e sodium (SENOKOT-S) 8.6-50 mg per tabletIndications: Neurogenic Bowel Take 1 tablet by mouth 2 (two) times a day as needed for constipation. 07/04/2018 documented as of this encounter Plan of Treatment Upcoming Encounters Date Type Department Care Team (Latest Contact Info) Description 04/28/2025 1:00 PM CDT Comprehensive Visit Department of General Surgery in [place], [place] [address] [place] [address] Roland Benson D.O. [address] [place] [phone] Discharge Disposition: Home or Self Care documented as of this encounter Procedures Procedure Name Priority Date/Time Associated Diagnosis Comments CT CHEST ANGIOGRAM AND PULMONARY ARTERIES WITH IV CONTRAST RAD - Semiurgent (Fast; most ED patients; some inpatients) 03/04/2025 8:52 AM CDT Embolus Pulmonary (HCC) documented in this encounter Results * CT Chest Angiogram and Pulmonary Arteries with IV Contrast (03/04/2025 8:52 AM CDT) Anatomical Region Laterality Modality Chest, Cardiovascular RST LO S, Thoracic ARZ LOS, Thoracic FLA LOS N/A Computed Tomography 03/04/2025 9:00 AM CDT Impressions 03/04/2025 9:14 AM CDT Small residual nonocclusive chronic segmental and subsegmental pulmonary emboli in the central and posteromedial right lower lobe, smaller than on 11/14/2024, and similar to 02/21/2025. No evidence of right heart strain. Narrative 03/04/2025 9:14 AM CDT EXAM: CT CHEST ANGIOGRAM AND PULMONARY ARTERIES WITH IV CONTRAST Including 3D image postprocessing with or without AI assistance. COMPARISON: CT chest 02/21/2025, 11/14/2024 FINDINGS: Probable small residual nonocclusive chronic segmental and subsegmental pulmonary emboli in the central and posteromedial right lower lobe 5/152, 5/164, smaller than on 11/14/2024, and similar to 02/21/2025. Streak artifact partly limits sensitivity. No new pulmonary emboli. Normal caliber central pulmonary arteries and thoracic aorta. No evidence of right heart strain. No adenopathy. No pericardial effusion. No airspace consolidation. No pulmonary nodule or mass. Mild bilateral emphysema. Mild multifocal mucus plugging in the central and posterior lower lobes bilaterally. Mild linear atelectasis or scarring in the lower lungs bilaterally. Percutaneous cholecystostomy tube within decompressed gallbladder. Stable rounded hypodensity in the superior hepatic dome with associated dystrophic calcification. Mild multilevel degenerative changes in the thoracic spine. Procedure Note Justin Gonzalez M.D. - 03/04/2025 EXAM: CT CHEST ANGIOGRAM AND PULMONARY ARTERIES WITH IV CONTRAST Including 3D image postprocessing with or without AI assistance. COMPARISON: CT chest 02/21/2025, 11/14/2024 FINDINGS: Probable small residual nonocclusive chronic segmental and subsegmentalpulmonary emboli in the central and posteromedial right lower lobe 5/152,5/164, smaller than on 11/14/2024, and similar to 02/21/2025. Streakartifact partly limits sensitivity. No new pulmonary emboli. Normal caliber central pulmonary arteries andthoracic aorta. No evidence of right heart strain. No adenopathy. Nopericardial effusion. No airspace consolidation. No pulmonary nodule or mass. Mild bilateralemphysema. Mild multifocal mucus plugging in the central and posteriorlower lobes bilaterally. Mild linear atelectasis or scarring in the lowerlungs bilaterally. Percutaneous cholecystostomy tube within decompressed gallbladder. Stable roundedhypodensity in the superior hepatic dome with associated dystrophiccalcification. Mild multilevel degenerative changes in the thoracicspine. IMPRESSION: Small residual nonocclusive chronic segmental and subsegmental pulmonaryemboli in the central and posteromedial right lower lobe, smaller than on11/14/2024, and similar to 02/21/2025. No evidence of right heartstrain. Pablo Vo M.D. IMHeidi CT PROCEDURES Final Result documented in this encounter Visit Diagnoses Diagnosis Embolus Pulmonary (HCC) documented in this encounter Administered Medications Inactive Administered Medications - up to 3 most recent administrations Medication Order MAR Action Action Date Dose Rate Site iopromide 370 mg iodine/mL injection 100 mL (Ultravist) 100 mL, intravenous, Once in imaging, contrast, Starting on Mon03/04/25 at 0843, For 1 dose Given 03/04/2025 8:58 AM CDT 100 mL sodium chloride 0.9 % flush 80 mL 80 mL, intravenous, Once, On Mon03/04/25 at 0900, For 1 dose Given 03/04/2025 8:58 AM CDT 80 mL sodium chloride 0.9 % injection 10 mL 10 mL, intravenous, Once, On Mon03/04/25 at 0900, For 1 dose Given 03/04/2025 8:58 AM CDT 10 mL documented in this encounter Additional Health Concerns Assessment Noted Time PHQ-9 Depression Total Score: 10 018 11:00 AM CDT documented as of this encounter Care Teams Grain Drier Operator Relationship Specialty Start Date End Date Jeff Reyes M.D. [address] [place] [phone] PCP - General 03/14/24 documented as of this encounter
--- OUTSIDE RECORDS SUMMARY | 2025-03-13 14:40 | XMS_ITS | Encounter Summary ---
Author Organization [facility] Address [address] [place] [address] Care Team Providers Care Rotary Envelope Machine Operator Name Role Phone Jeff Reyes M.D. 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 [address] [place] [address] Phone: tel: fax: [facility] Region Referral ID Status Reason Start Date Expiration Date V isits Requested Visits Authorized [id number] Authorized 03/13/2025 06/13/2026 1 1 * Outpatient (Routine) - Authorized Specialty Diagnoses / Procedures Referred By Jono t Referred To Contact Oncology Pablo Vo M.D. [address] [place] [address] Phone: tel: [facility]: [facility] Region Referral ID Status Reason Start Date Expiration Date V isits Requested Visits Authorized [id number] Authorized 03/13/2025 09/12/2026 1 1 Reason for Visit * Outpatient (Routine) - Closed Specialty Diagnoses / Procedures Referred By Contelly t Referred To Contact Oncology Pablo Vo M.D. [address] [place] [address] Phone: tel: fax: [facility] Region Referral ID Status Reason Start Date Expiration Date Visits Re quested Visits Authorized [id number] Closed 11/12/2024 05/14/2026 1 1 Encounter Details Date Type Department Care Team (Late st Contact Info) Description 03/13/2025 2:40 PM CDT Telemedicine Department of Oncology in [place], [place] [address], [place] [phone] Pablo Vo M.D. [address] [place] [address] Embolus Pulmonary (HCC) (Primary Dx); [...] daily living? Patient unable to answer 02/27/2025 [facility] Utilities Answer [...] Sex Assigned at Male 06/26/2018 4:20 PM FLEET COORDINATOR Legal Sex Male 3:33 AM FLEET COORDINATOR Gender Identity Not on file Sexual Orientation Not on file documented as of this encounter Plan of Treatment Upcoming Encounters Date Type Department Care Team (Latest Contact Info) Description 04/28/2025 1:00 PM CDT Comprehensive Visit Department of General Surgery in [place], [place] [address] [place] [phone] Roland Benson D.O. [address] [place] [phone] Discharge Disposition: Home or Self Care Scheduled [...] documented as of this encounter Care Teams Rotary Envelope Machine Operator Relationship Specialty Start Date End Date Jeff Reyes M.D. [address] [place] [address] PCP - General 03/14/24 documented as of this encounter
[2025-03-16] VITALS (13 sets, daily range): BP systolic 131–142; BP diastolic 63–69; PULSE 65–69; RESP 5–29; TEMP 36.1–36.8; O2SAT 92–98; BMI 27.5
--- OUTSIDE RECORDS SUMMARY | 2025-03-16 21:09 | XMS_ITS | Clinical Summary ---
Author Organization [facility] Address [facility] [place] [address] Care Team Providers Care Self Contained Behavior Unit Teacher Name Role Phone Birdie Taveras RN Unavailable [phone] Karrie Singer RN Unavailable [phone] Pcp, No Primary Care Provider Unavailabl e Allergies Active Allergy Reactions Criticality Noted Date [...] mg by mouth two times daily. Active cholecalciferol (Vitamin D) 1,000 unit tablet Take 1,000 [...] daily. Active metFORMIN (GLUCOPHAGE XR) 500 mg Extended-Releas e tablet Take 1,000 mg by mouth once daily with evening meal. Active metoprolol succinate (TOPROL XL) 100 mg Sustained-Relea se tablet Take 100 mg by mouth once daily. Active ondansetron (ZOFRAN) 4 mg tablet Take 4 mg by mouth four times daily. Active pantoprazole (PROTONIX) 40 mg delayed-release tablet Take 40 mg by mouth two times daily before meals. Active polyethylene glycol (MIRALAX; GLYCOLAX) 17 g per packet packet Mix 1 Packet in liquid then take by mouth once daily. Active potassium chloride (MICRO-K) 10 mEq Controlled-rele ase capsule Take 10 mEq by mouth two [...] mouth once daily in the afternoon. Active sennosides-docu sate (Senna-S) (8.6-50 mg) tablet Take 2 Tablets by mouth once daily. Active sennosides-docu sate (Senna-S) (8.6-50 mg) tablet Take 1 Tablet by mouth once daily if needed for Constipation. Active latanoprost (XALATAN) 0.005 % ophthalmic solution Place 1 Drop into both eyes at bedtime. Active carbamide peroxide (Debrox) 6.5 % otic solution Place 5 Drops into both ears every Monday. At bedtime every Monday Active oxyCODONE (ROXICODONE) 5 mg immediate release tabletIndicatio ns:Chronic ulcer of sacral region, unspecified ulcer stage (HC) Take 1 Tablet (5 mg) by mouth two times daily. 16 Tablet 02/08/20 25 Active oxyCODONE (ROXICODONE) 5 mg immediate release tabletIndicatio ns:Chronic ulcer of sacral region, unspecified ulcer stage (HC) Take 1 Tablet (5 mg) by mouth every 6 hours if needed for Pain. 16 Tablet 02/08/20 25 Active amoxicillin-cla vulanate (AUGMENTIN) 875-125 mg tabletIndicatio ns:skin and skin structure infection,ischi al wound Take 1 Tablet by mouth two times daily with meals for 7 days. 14 Tablet 02/08/20 25 025 trimethoprim-bauer lfamethoxazole 160-800 mg tabIndications: skin and skin structure infection,ischi al wound Take 1 Tablet by mouth two times daily for 7 days. 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 Overview (02/06/2025): History of [place] Neurogenic bowel 05/26/2018 Primary hypertension 05/28/2015 Overview [...] Encounters Date Type Department Care Team Description 03/14/2025 Lab Requisition [facility] [phone] Unknown, Doctor 03/13/2025 Lab Requisition [facility] [phone] Unknown, Doctor 03/07/2025 Lab Requisition [facility] [phone] Carmenza Quiroz NP 03/04/2025 8:32 AM CDT - 03/04/2025 11:59 PM CDT Hospital Encounter [facility] [address] [place] [address] [facility] Travel 03/03/2025 Lab Requisition [facility] [phone] Carmenza Quiroz NP 02/14/2025 Lab Requisition [facility] [phone] Carmenza Quiroz NP 02/12/2025 Telephone [facility] [address] [facility] [address] [place] [address] Bijan Khanna MD Error-please disregard (Error/) 02/06/2025 Travel 02/05/2025 11:52 PM CDT - 02/07/2025 5:37 PM CDT Hospital Encounter [facility] [address] [place] [address] [facility], MD Rubin Zaragoza Kirsten Elizabeth, DO Tidwell, Erick José MD Chronic ulcer of sacral region, unspecified ulcer stage (HC) (Primary Dx) Discharge Disposition: Fdc Facility 02/03/2025 Lab Requisition [facility] [phone] Carmenza Quiroz NP 01/20/2025 Lab Requisition [facility] [phone] Carmenza Quiroz NP 01/14/2025 Lab Requisition [address] [place] [address] Carmenza Quiroz NP 12/30/2024 Lab Requisition [facility] [phone] Carmenza Quiroz NP 12/23/2024 Lab Requisition [facility] [phone] Carmenza Quiroz NP from Last 3 Months Immunizations Immunization Administration Dates Next Due COVID-19 vaccine ([employer] NTech 30mcg/0.3mL) 12YO+ BIVALENT PF, MDV 05/17/2022 [...] st Contact Info) Description 06/02/2025 10:30 AM SHIFT MGR Office Visit [facility] [address] [place] [address] Markel Schultz MD [address] [place] [address] Health Maintenance Due Date Last Done Comments Depression screening for age 12+ 1962 BMI (ht and wt on same day) for age 18+ 01/04/1968 Hepatitis C screening for age 18-79 01/04/1968 Colonoscopy through age 75 1995 Lipids for age 45-75 1995 Influenza Vaccine (#1) 2025 4, 05/08/2003, 05/23/2002 Tetanus booster 04/08/2029 04/08/2019, 07/25, [...] Procedure Name Priority Date/Time Associated Diagnosis Comments LAB TRACKING EVENT Routine 03/12/2025 1: 28 PM CDT RED CELL MORPHOLOGY Routine 03/11/2025 8 :23 AM CDT Type 2 diabetes mellitus without complications (HC) Anemia, unspecified PLATELET ESTIMATE Routine 03/11/2025 8:2 3 AM CDT Type 2 diabetes mellitus without complications (HC) Anemia, unspecified MANUAL DIFFERENTIAL Routine 03/11/2025 8 :23 AM CDT Type 2 diabetes mellitus without complications (HC) Anemia, unspecified CBC WITH AUTO DIFFERENTIAL Routine 03/11/2025 8:23 AM CDT Type 2 diabetes mellitus without complications (HC) Anemia, unspecified BASIC METABOLIC PANEL Routine 03/11/2025 8:23 AM CDT Type 2 diabetes mellitus without complications (HC) Anemia, unspecified CBC WITH AUTO DIFFERENTIAL Routine 03/11/2025 8:23 AM CDT Type 2 diabetes mellitus without complications (HC) Anemia, unspecified CT CHEST PE STUDY Routine 03/04/2025 9:0 7 AM CDT CBC WITH AUTO DIFFERENTIAL Routine 03/04/2025 7:50 AM CDT Type 2 diabetes mellitus without complications (HC) Anemia, unspecified BASIC METABOLIC PANEL Routine 03/04/2025 7:50 AM CDT Type 2 diabetes mellitus without complications (HC) Anemia, unspecified CBC WITH AUTO DIFFERENTIAL Routine 03/04/2025 7:50 AM CDT Type 2 diabetes mellitus without complications (HC) Anemia, unspecified RED CELL MORPHOLOGY Routine 02/18/2025 7 :15 [...] Routine 12/24/2024 7:08 AM CDT Anemia, unspecified from Last 3 Months Results * LAB TRACKING EVENT (03/12/2025 1:28 PM CDT) Other (Other) Client Collect / Unknown 03/12/2025 1:28 PM CDT 03/13/2025 6:12 AM CDT us Doctor Unknown LAB BILL ONLY Final Result [facility] [address] [place] [address], [place] * (ABNORMAL) CBC WITH AUTO DIFFERENTIAL (03/11/2025 8:23 AM CDT) Only the most recent of8 resultswithin the time period is included. WHITE BLOOD COUNT 12.5(H) 4.5 - 11.0 thou/cu mm 03/11/2025 10:42 AM [facility] RED BLOOD COUNT 3.71(L) 4.30 - 5.90 mil/cu mm 03/11/2025 10:42 AM [facility] HEMOGLOBIN 9.4(L) 13.5 - 17.5 g/dL 03/11/2025 10:42 AM [facility] HEMATOCRIT 31.1(L) 37.0 - 53.0 % 03/11/2025 10:42 AM [facility] MCV 84 80 - 100 fL 03/11/2025 10:42 AM [facility] MCH 25.3(L) 26.0 - 34.0 pg 03/11/2025 10:42 AM [facility] MCHC 30.2(L) 32.0 - 36.0 g/dL 03/11/2025 10:42 AM [facility] RDW 16.9(H) 11.5 - 15.5 % 03/11/2025 10:42 AM [facility] PLATELET COUNT 278 140 - 440 thou/cu mm 03/11/2025 10:42 AM [facility] MPV 9.5 6.5 - 11.0 fL 03/11/2025 10:42 AM [facility] Blood BLOOD SPECIMEN / Unknown Butterfly / Unknown 03/11/2025 8:23 AM CDT 03/11/2025 9:36 AM CDT us Carmenza Quiroz NP HEMATOLOGY Final Resul t [facility] [address] [place] [address] * (ABNORMAL) RED CELL MORPHOLOGY (03/11/2025 8:23 AM CDT) Only the most recent of3 resultswithin the time period is included. ELLIPTOCYTES Few 03/11/2025 10:42 AM CDT [facility] RBC COMMENT Present(A) RBC morphology appears normal, RBC morphology within normal limits for newborns. 03/11/2025 10:42 AM CDT [facility] LARGE PLATELETS Present 10:42 AM CDT [facility] Blood BLOOD SPECIMEN / Unknown Butterfly / Unknown 03/11/2025 8:23 AM CDT 03/11/2025 9:36 AM CDT Carmenza Quiroz NP HEMATOLOGY Final Resul t Performing Organization Address City/[facility] Co de Phone Number [facility] [address] [place] [address] * PLATELET ESTIMATE (03/11/2025 8:23 AM CDT) Only the most recent of3 resultswithin the time period is included. Pathologist [facility] PLATELET ESTIMATE Adequate Adequate, No estimate 03/11/2025 10:42 AM T [facility] Blood BLOOD SPECIMEN / Unknown Butterfly / Unknown 03/11/2025 8:23 AM CDT 03/11/2025 9:36 AM CDT Carmenza Quiroz NP HEMATOLOGY Final Resul t Performing Organization Address City/[facility]/ZIP Co de Phone Number [facility] [address] [place] [address] * (ABNORMAL) MANUAL DIFFERENTIAL (03/11/2025 8:23 AM CDT) Only the most recent of2 resultswithin the time period is included. Pathologist [facility] % NEUTROPHILS 76.0 % 03/11/2025 10:42 AM [facility] % LYMPHOCYTES 21.0 % 03/11/2025 10:42 AM T [facility] % MONOCYTES 3.0 % 03/11/2025 10:42 AM T [facility] % EOSINOPHILS 0.0 % 03/11/2025 10:42 AM T [facility] % BASOPHILS 0.0 % 03/11/2025 10:42 AM T [facility] NEUTROPHILS ABSOLUTE 9.5(H) 1.7 - 7.0 thou/cu mm 03/11/2025 10:42 AM CDT [facility] LYMPHOCYTES ABSOLUTE 2.6 0.9 - 2.9 thou/cu mm 03/11/2025 10:42 AM T [facility] MONOCYTES ABSOLUTE 0.4 <0.9 thou/cu mm 03/11/2025 10:42 AM T [facility] EOSINOPHILS ABSOLUTE 0.0 <0.5 thou/cu mm 03/11/2025 10:42 AM [facility] BASOPHILS ABSOLUTE 0.0 <0.3 thou/cu mm 03/11/2025 10:42 AM [facility] Blood BLOOD SPECIMEN / Unknown Butterfly / Unknown 03/11/2025 8:23 AM CDT 03/11/2025 9:36 AM CDT us Carmenza Quiroz NP HEMATOLOGY Final Resul t [facility] [address] [place], [place] [phone] * (ABNORMAL) BASIC METABOLIC PANEL (03/11/2025 8:23 AM CDT) Only the most recent of7 resultswithin the time period is included. SODIUM 140 136 - 145 mmol/L 03/11/2025 10:10 AM [facility] POTASSIUM 3.7 3.5 - 5.1 mmol/L 03/11/2025 10:10 AM [facility] CHLORIDE 100 98 - 107 mmol/L 03/11/2025 10:10 AM [facility] CO2,TOTAL 28 22 - 29 mmol/L 03/11/2025 10:10 AM [facility] ANION GAP 12 5 - 18 03/11/2025 10:10 AM [facility] GLUCOSE 123(H) 70 - 99 mg/dL 03/11/2025 10:10 AM [facility] CALCIUM 9.2 8.8 - 10.4 mg/dL 03/11/2025 10:10 AM [facility] Comment: Reference ranges for this test were updated on 05/28/2024 to reflect our healthy population more accurately. Reference range changes are not retroactively applied to results, but previous results using the same methodology can be interpreted in the context of the new reference range. BUN 22 8 - 23 mg/dL 03/11/2025 10:10 AM [facility] CREATININE 0.73 0.70 - 1.20 mg/dL 03/11/2025 10:10 AM [facility] BUN/CREAT RATIO 30(H) 10 - 20 10:10 AM [facility] eGFR >90 >90 mL/min/1. 73m2 03/11/2025 10:10 AM [facility] Comment:As of 2021, eG FR is calculated by the CKD-EPI creatinine equation without race adjustment. eGFR can be influenced by muscle mass, exercise, and diet. The reported eGFR is an estimation only and is only applicable if the renal function is stable. Blood BLOOD SPECIMEN / Unknown Butterfly / Unknown 03/11/2025 8:23 AM CDT 03/11/2025 9:36 AM CDT Carmenza Quiroz NP CHEMISTRY Final Resul t [facility] [address] [place] [address] * CT CHEST PE STUDY (03/04/2025 9:07 AM CDT) Anatomical Region Laterality Modality CHEST, THORAX, HEART Computed To mography Pablo Vo [facility] CT Fin al Result * HEMOGLOBIN A1C (02/18/2025 7:15 AM CDT) [facility] HEMOGLOBIN A1C SCREENING 6.3 <=6.4 % 02/18/2025 8:35 AM T [facility] Blood BLOOD SPECIMEN / Unknown Butterfly / Unknown 02/18/2025 7:15 AM CDT 02/18/2025 8:19 AM CDT [facility] - 02/18/2025 8:35 AM CDT (<5.7%) Normal (5.7% to 6.4%) Indicates prediabetes (>=6.5%) Confirms diabetes Falsely low levels may be seen with: Recent Transfusion, Recent Significant Blood Loss, Hemolytic Diseases, or Falsely elevated levels may be seen with: Untreated Anemias, Splenectomy us Carmenza Quiroz [employer] CHEMISTRY Final Resul t Performing Organization Address City/State/[facility] Co de Phone Number [facility] [address] [place] [phone] * (ABNORMAL) HEPATIC FUNCTION PANEL (02/18/2025 7:15 AM CDT) [facility] ALBUMIN 3.3(L) 4.0 - 4.9 g/dL 02/18/2025 8:54 AM [facility] PROTEIN,TOTAL 6.9 6.0 - 8.0 g/dL 02/18/2025 8:54 AM [facility] BILIRUBIN,TOTAL 0.5 0.0 - 1.2 mg/dL 02/18/2025 8:54 AM [facility] BILIRUBIN,DIRECT 0.3(H) 0.0 - 0.2 mg/dL 02/18/2025 8:54 AM [facility] BILIRUBIN,INDIRE CT 0.2 0.2 - 0.8 mg/dL 02/18/2025 8:54 AM [facility] ALK PHOSPHATASE 185(H) 40 - 129 IU/L 02/18/2025 8:54 AM [facility] ALT (SGPT) 39 10 - 50 IU/L 02/18/2025 8:54 AM [facility] AST (SGOT) 37 10 - 50 IU/L 02/18/2025 8:54 AM CDT [facility] Blood BLOOD SPECIMEN / Unknown Butterfly / Unknown 02/18/2025 7:15 AM CDT 02/18/2025 8:19 AM CDT us Carmenza Quiroz NP CHEMISTRY Final Resul t Performing Organization Address City/[facility]/ZIP Co de Phone Number [facility] [address] [place] [address] * (ABNORMAL) GLUCOSE METER (02/07/2025 7:58 AM CDT) Only the most recent of7 resultswithin the time period is included. GLUCOSE METER 146(H) 65 - 100 mg/dL 02/07/2025 7:58 AM CDT [facility] Blood BLOOD SPECIMEN / Unknown 02/07/2025 7:58 AM CDT 02/07/2025 7:58 AM CDT us Erick Lazaro MD CHEMISTRY Final Resu lt [facility] [address] [place] [address], [place] * WBC AM (02/07/2025 7:05 AM CDT) Only the most recent of2 resultswithin the time period is included. WHITE BLOOD COUNT 7.8 4.5 - 11.0 thou/cu mm 02/07/2025 7:20 AM CDT [facility] NRBC 0.0 % 02/07/2025 7:20 AM CDT [facility] ABS NRBC 0.0 thou /cu mm 02/07/2025 7:20 AM CDT [facility] Blood BLOOD SPECIMEN / Unknown Venipuncture / Unknown 02/07/2025 7:05 AM CDT 02/07/2025 7:11 AM CDT us Erick Lazaro MD HEMATOLOGY Final Resu lt Performing Organization Address City/[facility]/ZIP Co de Phone Number [facility] [address] [place] [address], [place] * (ABNORMAL) Hemoglobin AM (02/07/2025 7:05 AM CDT) Only the most recent of3 resultswithin the time period is included. HEMOGLOBIN 9.6(L) 13.5 - 17.5 g/dL 02/07/2025 7:20 AM CDT [facility] MCV 84 80 - 100 fL 02/07/2025 7:20 AM CDT [facility] Blood BLOOD SPECIMEN / Unknown Venipuncture / Unknown 02/07/2025 7:05 AM CDT 02/07/2025 7:11 AM CDT us Erick Lazaro MD HEMATOLOGY Final Resu lt Performing Organization Address [facility] Co de Phone Number [facility] [address] [phone], [place] * Potassium AM (02/07/2025 7:04 AM CDT) POTASSIUM 3.6 3.5 - 5.1 mmol/L 02/07/2025 7:46 AM CDT [facility] Blood BLOOD SPECIMEN / Unknown Venipuncture / Unknown 02/07/2025 7:04 AM CDT 02/07/2025 7:11 AM CDT us Erick Lazaro MD CHEMISTRY Final Resu lt Performing Organization Address City/[facility] Co de Phone Number [facility] [address] [place] [address], [place] * (ABNORMAL) Creatinine AM (02/07/2025 7:04 AM CDT) eGFR 90(L) >90 mL/min/1.7 3m2 02/07/2025 7:46 AM CDT [facility] Comment:As of 2021, eG FR is calculated by the CKD-EPI creatinine equation without race adjustment. eGFR can be influenced by muscle mass, exercise, and diet. The reported eGFR is an estimation only and is only applicable if the renal function is stable. CREATININE 0.87 0.70 - 1.20 mg/dL 02/07/2025 7:46 AM CDT [facility] Blood BLOOD SPECIMEN / Unknown Venipuncture / Unknown 02/07/2025 7:04 AM CDT 02/07/2025 7:11 AM CDT us Erick Lazaro MD CHEMISTRY Final Resu lt Performing Organization Address City/[facility]/ZIP Co de Phone Number [facility] [address] [address], [place] * Magnesium AM (02/07/2025 7:04 AM CDT) MAGNESIUM 1.6 1.6 - 2.4 mg/dL 02/07/2025 7:46 AM CDT [facility] Blood BLOOD SPECIMEN / Unknown Venipuncture / Unknown 02/07/2025 7:04 AM CDT 02/07/2025 7:11 AM CDT us Erick Lazaro MD CHEMISTRY Final Resu lt [facility] [address] [place] [address], [place] * PLATELET COUNT (02/06/2025 2:22 PM CDT) PLATELET COUNT 202 140 - 440 thou/cu mm 02/06/2025 2:45 PM CDT [facility] MPV 9.0 6.5 - 11.0 fL 02/06/2025 2:45 PM CDT [facility] Blood BLOOD SPECIMEN / Unknown Butterfly / Unknown 02/06/2025 2:22 PM CDT 02/06/2025 2:39 PM CDT Narrative [facility] - 02/06/2025 2:45 PM CDT Obtain before initiating IV heparin therapy if not done within previous 24 hours. Obtain before initiating IV heparin therapy if not done within previous 24 hours. Erick Lazaro MD HEMATOLOGY Final Resu lt Performing Organization Address [facility]/ZIP Co de Phone Number [facility] [address] [place] [address], * APTT (02/06/2025 2:22 PM CDT) APTT 34 25 - 36 sec 02/06/2025 2:52 PM CDT [facility] Blood BLOOD SPECIMEN / Unknown Butterfly / Unknown 02/06/2025 2:22 PM CDT 02/06/2025 2:39 PM CDT Narrative [facility] - 02/06/2025 2:52 PM CDT Therapeutic Range: 59-89 seconds Erick Lazaro MD HEMATOLOGY Final Resu lt Performing Organization Address [facility] Co de Phone Number [facility] [address] [place] [address], * (ABNORMAL) PROTIME-INR (02/06/2025 2:22 PM CDT) INR 1.3(H) <1.3 02/06/2025 2:52 PM CDT [facility] PROTIME 15.0(H) 10.6 - 12.4 sec 02/06/2025 2:52 PM CDT [facility] Blood BLOOD SPECIMEN / Unknown Butterfly / Unknown 02/06/2025 2:22 PM CDT 02/06/2025 2:39 PM CDT [facility] - 02/06/2025 2:52 PM CDT Therapeutic [...] HEMATOLOGY Final Resu lt Performing Organization Address [facility] Co de Phone Number [facility] [address] [address], [place] * SCAN CORRESP-EKG RESULTS (02/06/2025 1:33 PM CDT) Narrative 02/06/2025 1:33 PM CDT Ordered by an unspecified provider. Other Clinical Staff OTHER Final Resul t * (ABNORMAL) C-reactive protein (02/06/2025 9:10 AM CDT) Only the most recent of2 resultswithin the time period is included. C-REACTIVE PROTEIN 12.4(H) <0.5 mg/dL 02/06/2025 9:49 AM CDT [facility] Blood BLOOD SPECIMEN / Unknown Venipuncture / Unknown 02/06/2025 9:10 AM CDT 02/06/2025 9:25 AM CDT Roz Jewell MD CHEMISTRY Final Result Performing Organization Address [facility] Co de Phone Number [facility] [address] [address], [place] * TSH (01/14/2025 7:40 AM CDT) TSH 2.69 0.27 - 4.20 uIU/mL 01/14/2025 9:16 AM CDT [facility] Blood BLOOD SPECIMEN / Unknown Butterfly / Unknown 01/14/2025 7:40 AM CDT 01/14/2025 8:42 AM CDT Narrative [facility] - 01/14/2025 9:16 AM CDT In Adults, TSH values between 5.00 and 10.00 uIU/ml do not necessarily indicate the presence of Hypothyroidism. Correlation with clinical findings such as presence of goiter and/or Thyroperoxidase (TPO) Antibody may be helpful. For more information please refer to LUIGI 2004; 291: 228-238. Carmenza Quiroz NP CHEMISTRY Final Resul t Performing Organization Address [facility] de Phone Number [facility] [address] [place] [address] * ALT (SGPT) (01/14/2025 7:40 AM CDT) ALT (SGPT) 19 10 - 50 IU/L 01/14/2025 9:16 AM CDT [facility] Blood BLOOD SPECIMEN / Unknown Butterfly / Unknown 01/14/2025 7:40 AM CDT 01/14/2025 8:42 AM CDT Carmenza Quiroz NP CHEMISTRY Final Resul t Performing Organization Address [facility] de Phone Number [facility] [address] [place] [address] * ALK PHOSPHATASE (01/14/2025 7:40 AM CDT) ALK PHOSPHATASE 85 40 - 129 IU/L 01/14/2025 9:16 AM CDT [facility] Blood BLOOD SPECIMEN / Unknown Butterfly / Unknown 01/14/2025 7:40 AM CDT 01/14/2025 8:42 AM CDT Carmenza Quiroz [employer] CHEMISTRY Final Resul t Performing Organization Address [facility] de Phone Number [facility] [address] [place] [address] * (ABNORMAL) PRO-BNP (01/14/2025 7:40 AM CDT) PRO-BNP 1,544(H) <450 pg/mL 01/14/2025 9:19 AM CDT [facility] Blood BLOOD SPECIMEN / Unknown Butterfly / Unknown 01/14/2025 7:40 AM CDT 01/14/2025 8:42 AM CDT [facility] - 01/14/2025 9:19 AM CDT [...] Quiroz NP SEND OUTS Final Resul t [facility] [address] [place] [address] from Last 3 Months Additional Health Concerns Infection Onset Date Last Indicated MDRO Clearance Comment:Infection Control Note: Hx of ESBL, surveillance criteria met, no need for further testing or isolation precautions. Do not delete or resolve the Infection Flag. Anecdotal +ESBL 02/06/2025 02/06/2025 Insurance [employer] [employer] [facility] [employer] 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 PCP - General 03/03/25 Birdie Taveras RN [address] [facility] [address] [place], [place] [address] Automotive Parts Clerk - [facility] Registered Nurse 07/24/23 Karrie Singer RN [address] [facility] [place] [address] [place], [place] [address] Automotive Parts Clerk - [facility] Registered Nurse 07/24/23
--- OUTSIDE RECORDS SUMMARY | 2025-03-16 21:09 | XMS_ITS | Encounter Summary ---
Author Organization [facility] Address [address] [place] [address] Care Team Providers Care Ornamental Ironworking Supervisor Name Role Phone Jeff Reyes M.D. Primary Care Provider [phone] Reason for Visit * Reason Onset Date Comments Communication 03/14/2025 Regarding appoin tment in April Encounter Details Date Type Department Care Team (Latest Contact Info) Description 03/14/2025 Clinical Communication Department of General Surgery in [place], [place] [address] [place] [address] Roland Benson D.O. [address] [place] [phone] Communication (Regarding appointment in April) Social History Tobacco Use Types Packs/Day Years [...] daily living? Patient unable to answer 02/27/2025 [facility] Utilities Answer Date Recorded In the past 12 months has [employer] gas, oil, or water [employer] threatened to shut off services in your [...] Sex Assigned at Male 06/26/2018 4:20 PM AS400 ANALYST Legal Sex Male 3:33 AM AS400 ANALYST Gender Identity Not on file Sexual Orientation Not on file documented as of this encounter Plan of Treatment Upcoming Encounters Date Type Department Care Team (Latest Contact Info) Description 04/28/2025 1:00 PM CDT Comprehensive Visit Department of General Surgery in [place], [place] [address] [place] [address] Roland Benson D.O. [address] [place] [phone] Discharge Disposition: Home or Self Care documented as of this encounter Visit Diagnoses Not on filedocumented in this encounter Additional Health Concerns Assessment Noted Time PHQ-9 Depression Total Score: 10 018 11:00 AM CDT documented as of this encounter Care Teams Ornamental Ironworking Supervisor Relationship Specialty Start Date End Date Jeff Reyes M.D. [address] [place] [address] PCP - General 03/14/24 documented as of this encounter
--- OUTSIDE RECORDS SUMMARY | 2025-03-16 21:09 | XMS_ITS | Encounter Summary ---
Author Organization [facility] Address [address] [place] [address] Care Team Providers Care Electronics Engineering Professor Name Role Phone Jeff Reeys M.D. Primary Care Provider [phone] Encounter Details Date Type Department Care Team (Late st Contact Info) Description 02/25/2025 Orders Only [facility] Jeff Reyes M.D. [address] [place] [address] Social History Tobacco Use Types [...] daily living? Patient unable to answer 02/27/2025 [facility] Utilities Answer Date Recorded [...] Sex Assigned at Male 06/26/2018 4:20 PM COUNSELING CASE MANAGER Legal Sex Male 3:33 AM COUNSELING CASE MANAGER Gender Identity Not on file Sexual Orientation Not on file documented as of this encounter Plan of Treatment Upcoming Encounters Date Type Department Care Team (Latest Contact Info) Description 04/28/2025 1:00 PM CDT Comprehensive Visit Department of General Surgery in [place], [place] [address] [place] [phone] Roland Benson D.O. [facility] [place] [phone] Discharge Disposition: Home or Self Care documented as of this encounter Visit Diagnoses Not on filedocumented in this encounter Additional Health Concerns Assessment Noted Time PHQ-9 Depression Total Score: 10 05/26/2 018 11:00 AM CDT documented as of this encounter Care Teams Electronics Engineering Professor Relationship Specialty Start Date End Date Jeff Reyes M.D. [address] [place] [address] PCP - General 03/14/24 documented as of this encounter
--- OUTSIDE RECORDS SUMMARY | 2025-03-16 21:10 | XMS_ITS | Encounter Summary ---
Author Organization [facility] Address [address] [place] [address] Care Team Providers Care Motorboat Mechanic Inboard Name Role Phone Jeff Reyes M.D. Primary Care Provider [phone] Reason for Visit * Reason Onset Date Comments Nurse call back 01/31/2025 Encounter Details Date Type Department Care Team (Late st Contact Info) Description 01/31/2025 Clinical Communication Department of Oncology in [place], [place] [address] [place] [address] Pablo Vo M.D. [address] [place] [phone] Nurse call back Social History Tobacco Use [...] daily living? Patient unable to answer 02/27/2025 [facility] Utilities Answer Date Recorded In the past 12 months has [employer], gas, oil, or water [employer] threatened to shut off services in your [...] Sex Assigned at Male 06/26/2018 4:20 PM ORE CHARGER Legal Sex Male 3:33 AM ORE CHARGER Gender Identity Not on file Sexual Orientation Not on file documented as of this encounter Plan of Treatment Upcoming Encounters Date Type Department Care Team (Latest Contact Info) Description 04/28/2025 1:00 PM CDT Comprehensive Visit Department of General Surgery in [place], [place] [address] [place] [phone] Roland Benson D.O. [address] [place] [phone] Discharge Disposition: Home or Self Care documented as of this encounter Visit Diagnoses Not on filedocumented in this encounter Additional Health Concerns Infection Onset Date Last Indicated Resolved Time COVID19 Pending 02/22/2025 02/22/2025 02/22/2025 6 :40 AM CDT Assessment Noted Time PHQ-9 Depression Total Score: 10 018 11:00 AM CDT documented as of this encounter Care Teams Motorboat Mechanic Inboard Relationship Specialty Start Date End Date Jeff Reyes M.D. [address] [address] PCP - General 03/14/24 documented as of this encounter
--- OUTSIDE RECORDS SUMMARY | 2025-03-16 21:10 | XMS_ITS | Encounter Summary ---
Author Organization [facility] Address [address] [place] [address] Care Team Providers Care Calibration Engineer Name Role Phone Jeff Reyes M.D. Primary Care Provider [phone] Encounter Details Date Type Department Care Team (Late st Contact Info) Description 02/21/2025 Clinical Communication Department of Oncology in [place], [place] [address] [place] [phone] Pablo Vo M.D. [address] [place] [phone] Social History Tobacco Use Types Packs/Day Years [...] daily living? Patient unable to answer 02/22/2025 [facility] Utilities Answer Date Recorded In [...] Sex Assigned at Male 06/26/2018 4:20 PM STRATEGIC ANALYST Legal Sex Male 3:33 AM STRATEGIC ANALYST Gender Identity Not on file Sexual Orientation Not on file documented as of this encounter Plan of Treatment Upcoming Encounters Date Type Department Care Team (Latest Contact Info) Description 04/28/2025 1:00 PM CDT Comprehensive Visit Department of General Surgery in [place], [place] [address] [place] [address] Roland Benson D.O. [address] [place] [phone] Discharge Disposition: Home or Self Care documented as of this encounter Visit Diagnoses Not on filedocumented in this encounter Additional Health Concerns Infection Onset Date Last Indicated Resolved Time COVID19 Pending 02/22/2025 02/22/2025 02/22/2025 6 :40 AM CDT Assessment Noted Time PHQ-9 Depression Total Score: 10 018 11:00 AM CDT documented as of this encounter Care Teams Calibration Engineer Relationship Specialty Start Date End Date Jeff Reyes M.D. [address] [place] [phone] PCP - General 03/14/24 documented as of this encounter
--- OUTSIDE RECORDS SUMMARY | 2025-03-16 21:10 | XMS_ITS | Encounter Summary ---
Author Organization [place] Address [address] [facility] [place] [address] Care Team Providers Care Technical Support Representative Name Role Phone Ty Bijan Lauren Primary Care Provider [phone] Encounter Details Date Type Department Care Team (Latest Contact Info) Description 02/12/2025 Medical Correspondence [facility] Information Management [address] [facility] [address] [place] [address] Scan, Non-Provider [facility] Social History Tobacco Use Types Packs/Day Years Used Date Smoking Tobacco: Never Assessed Sex and Gender Information Value Date Recorded Sex Assigned at Not on file Legal Sex Male 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 Gender Identity Not on file Sexual Orientation Not on file documented as of this encounter Plan of Treatment Upcoming Encounters Date Type Department Care Team (Late st Contact Info) Description 04/21/2025 2:00 PM CDT Office Visit [facility] Infectious Disease Clinic [place] [address] [place] [address] Rl Evans MD [address] [place] [address], [facility] [address] [place], [place] [address] documented as of this encounter Visit Diagnoses Not on filedocumented in this encounter Care Teams Technical Support Representative Relationship Specialty Start Date End Date Biajn Crawford [place] [id number] [facility] [address] [place] [address] PCP - General Family Medicine 01/20/25 documented as of this encounter
--- OUTSIDE RECORDS SUMMARY | 2025-03-16 21:10 | XMS_ITS | Encounter Summary ---
Author Organization [facility] Address [address] [place] [address] Care Team Providers Care Desktop Technician Name Role Phone Jeff Reyes M.D. Primary Care Provider [phone] Reason for Visit * Reason Onset Date Comments OPAT 03/03/2025 Completion of th erapy Encounter Details Date Type Department Care Team (Latest Contact Info) Description 03/03/2025 Clinical Communication Department of Infectious Diseases in [address] [address] Roz Carlos R.N. OPAT (Completion of therapy) Social History Tobacco Use Types Packs/Day Years [...] daily living? Patient unable to answer 02/27/2025 [facility] Utilities Answer Date Recorded In the past 12 months has th e [employer], gas, oil, or water company threatened to [...] Sex Assigned at Male 06/26/2018 4:20 PM CLIENT ARCHITECT Legal Sex Male 3:33 AM CLIENT ARCHITECT Gender Identity Not on file Sexual Orientation Not on file documented as of this encounter Miscellaneous Notes * Telephone Encounter - Roz Carlos R.N. - 03/03/2025 9:57 AM CDT Patient completed IV antimicrobial therapy on 03/01/2025. Patient's Midline will be removed today, 03/03/2025 by [facility] nursing staff - this was confirmed with nurse Myers. No further antimicrobial therapy is currently indicated. Patient will follow-up with Infectious Disease on anas-needed basis. The patient's OPAT Episode will now be completed and they will be removed from OPAT monitoring. documented in this encounter Plan of Treatment Upcoming Encounters Date Type Department Care Team (Latest Contact Info) Description 04/28/2025 1:00 PM CDT Comprehensive Visit Department of General Surgery in [place], [place] [address] [place] [phone] Roland Benson D.O. [address] [place] [phone] Discharge Disposition: Home or Self Care documented as of this encounter Visit Diagnoses Not on filedocumented in this encounter Additional Health Concerns Assessment Noted Time PHQ-9 Depression Total Score: 10 018 11:00 AM CDT documented as of this encounter Care Teams Desktop Technician Relationship Specialty Start Date End Date Jeff Reyes M.D. [address] [place] [phone] PCP - General 03/14/24 documented as of this encounter
--- OUTSIDE RECORDS SUMMARY | 2025-03-16 21:10 | XMS_ITS | Encounter Summary ---
Author Organization [facility] Address [address] [place] [address] Care Team Providers Care Financial Controller Name Role Phone Jeff Reyes M.D. Primary Care Provider [phone] Reason for Visit * Reason Onset Date Comments Post Hospital Follow-up 02/28/2025 IV antib iotics Encounter Details Date Type Department Care Team (Latest Contact Info) Description 02/28/2025 Clinical Communication Department of Infectious Diseases in [place], [place] [address] [place] [address] Matilda Hammer, R.N. [address] [place] [phone] Post Hospital Follow-up (IV antibiotics) Social History Tobacco Use Types Packs/Day Years [...] daily living? Patient unable to answer 02/27/2025 [facility] Utilities Answer Date Recorded In the past 12 months has [employer], gas, oil, or water [employer] threatened to shut off services in your [...] Sex Assigned at Male 06/26/2018 4:20 PM R D INTERNSHIP Legal Sex Male 3:33 AM R D INTERNSHIP Gender Identity Not on file Sexual Orientation Not on file documented as of this encounter Miscellaneous Notes * Telephone Encounter - Matilda Hammer R.N. - 02/28/2025 10:27 AM CDT Reason for call Hospital discharge follow-up phone call with patient. Patient has been discharged on Outpatient Antimicrobial Therapy Monitoring (OPAT) Admission Date: Discharge Date: 02/22/2025 Discharge diagnosis: 02/27/2025 [facility] Outgoing phone call placed to [facility] in [place], [place] and spoke with patients nurse, Lucia. She stated patient, Ren Ramirez notes today is feeling the same than when he left the hospital. . Antibiotic Therapy Plan Ertapenem 1 g IV Q 24 last day of therapy March 01 Patient is receiving IV antibiotics at [facility] in [place], [place] and nursing is administering. Labs Monitoring labs for OPAT purposes: No labs needed. Line Care Patient was discharged with Midline. Line care will be completed weekly by nursing staff at [place], [place]. RN at facility to remove mid line upon completion of IV antibiotics. Rn will follow up if mid line removed, 03/01/2025 on 03/03/2025. Imaging NA Speciality Care Follow-Up NA Infectious Disease Follow-up Patient will follow-up in ID clinic on an as-needed basis. Teach-Back Completed: Yes Above information was reviewed with patients nurse during today's phone call. Plan as per [facility] Infectious Disease [phone] documented in this encounter Plan of Treatment Upcoming Encounters Date Type Department Care Team (Latest Contact Info) Description 04/28/2025 1:00 PM CDT Comprehensive Visit Department of General Surgery in [place], [place] [address] [place] [phone] Roland Benson D.O. [address] [place] [phone] Discharge Disposition: Home or Self Care documented as of this encounter Visit Diagnoses Not on filedocumented in this encounter Additional Health Concerns Assessment Noted Time PHQ-9 Depression Total Score: 10 018 11:00 AM CDT documented as of this encounter Care Teams Financial Controller Relationship Specialty Start Date End Date Jeff Reyes M.D. [address] [place] [phone] PCP - General 03/14/24 documented as of this encounter
--- OUTSIDE RECORDS SUMMARY | 2025-03-16 21:10 | XMS_ITS | Encounter Summary ---
Author Organization [place] Address [facility] 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 Gender Identity Not on file Sexual Orientation Not on file documented as of this encounter Plan of Treatment Upcoming Encounters Date Type Department Care Team (Late st Contact Info) Description 04/21/2025 2:00 PM CDT Office Visit [facility] Infectious Disease Clinic [place] [address] [place] [address] Rl Evans MD [address] [place] [address], [facility] [address] [place] [address] documented as of this encounter Visit Diagnoses Not on filedocumented in this encounter Care Teams Form Carpenter Relationship Specialty Start Date End Date Bijan Crawford [facility] [address] [facility] [address] [place], [place] [address] PCP - General Family Medicine 01/20/25 documented as of this encounter
--- OUTSIDE RECORDS SUMMARY | 2025-03-16 21:10 | XMS_ITS | Encounter Summary ---
Author Organization [facility] Address [address] [place] [address] Care Team Providers Care Home Health Care Provider Name Role Phone Jeff Reyes M.D. Primary Care Provider [phone] Reason for Visit * Reason Onset Date Comments Other 03/05/2025 Call Back Encounter Details Date Type Department Care Team (Latest Contact Info) Description 03/05/2025 Clinical Communication Department of Oncology in [place], [place] [address], [place] [address] Pablo Vo M.D. [address] [place] [address] Other (Call Back) Social History Tobacco Use Types Packs/Day Years [...] living? Patient unable to answer 02/27/2025 [facility] Utilities Answer Date Recorded In the past 12 months has [employer], gas, oil, or water [employer] ?[employer] threatened to shut off services in your [...] Sex Assigned at Male 06/26/2018 4:20 PM OBGYN HOSPITALIST PHYSICIAN Legal Sex Male 3:33 AM OBGYN HOSPITALIST PHYSICIAN Gender Identity Not on file Sexual Orientation Not on file documented as of this encounter Plan of Treatment Upcoming Encounters Date Type Department Care Team (Latest Contact Info) Description 04/28/2025 1:00 PM CDT Comprehensive Visit Department of General Surgery in [place], [place] [address] [place] [address] Roland Benson D.O. [address] [place] [phone] Discharge Disposition: Home or Self Care documented as of this encounter Visit Diagnoses Not on filedocumented in this encounter Additional Health Concerns Assessment Noted Time PHQ-9 Depression Total Score: 10 018 11:00 AM CDT documented as of this encounter Care Teams Home Health Care Provider Relationship Specialty Start Date End Date Jeff Reyes M.D. [address] [place] [address] PCP - General 03/14/24 documented as of this encounter
--- OUTSIDE RECORDS SUMMARY | 2025-03-16 21:10 | XMS_ITS | Encounter Summary ---
Author Organization [facility] Address [address] [place] [address] Care Team Providers Care Reception Centre Manager Name Role Phone Jeff Reyes M.D. Primary Care Provider [phone] Encounter Details Date Type Department Care Team (Latest Contact Info) Description 08/07/2024 Intake [facility] Social History Tobacco Use Types Packs/Day Years Used Date Smoking Tobacco: Former Cigarettes Q uit: 1977 Passive Smoke Exposure: Never Alcohol Use Standard Drinks/Week Comments Not Currently 1 (1 standard drink = 0.6 oz pur e alcohol) [facility] Utilities Answer Date Recorded In the past 12 months has e [employer], gas, oil, or water [employer] threatened to shut off services in your [...] living situation today? I have a [facility] place to live 11/08/2024 Education Answer Date Recorded What is the highest level of school you have completed or the highest degree you have received? 12th grade 10/18/2022 Sex and Gender Information Value Date Recorded Sex Assigned at Male 06/26/2018 4:20 PM BUSINESS CENTER ATTENDANT Legal Sex Male 3:33 AM BUSINESS CENTER ATTENDANT Gender Identity Not on file Sexual Orientation Not on file documented as of this encounter Plan of Treatment Upcoming Encounters Date Type Department Care Team (Latest Contact Info) Description 04/28/2025 1:00 PM CDT Comprehensive Visit Department of General Surgery in [place], [place] [address] [place] [address] Roland Benson D.O. [address] [place] [address] Discharge Disposition: Home or Self Care documented as of this encounter Visit Diagnoses Not on filedocumented in this encounter Additional Health Concerns Infection Onset Date Last Indicated Resolved Time MDR GNB 10/24/2024 10/24/2024 10/27/2024 6:33 AM CDT Assessment Noted Time PHQ-9 Depression Total Score: 10 018 11:00 AM CDT documented as of this encounter Care Teams Reception Centre Manager Relationship Specialty Start Date End Date Jeff Reyes M.D. [address] [place] [address] PCP - General 03/14/24 documented as of this encounter
--- OUTSIDE RECORDS SUMMARY | 2025-03-16 21:11 | XMS_ITS | Encounter Summary ---
Author Organization [place] Address [facility] [place] [address] Care Team Providers Care Batch Analyst Name Role Phone Bijan Crawford Primary Care Provider [phone] Rl Evans MD Unavailable [phone] Reason for Visit * Reason Onset Date Comments conversation 03/10/2025 wantnitza to disc uss patient with Dr Evans Encounter Details Date Type Department Care Team ([facility] Contact Info) Description 03/10/2025 [facility] Infectious Disease Clinic [address] [address] Rl Evans MD [address] [facility], [facility] [address] [place] [address] conversation ( wants to discuss patient with Dr Evans) Social History Tobacco Use Types Packs/Day Years Used Date Smoking Tobacco: Former Cigarettes Q uit: 07/24/1971 Smokeless Tobacco: Never Sex and Gender Information Value Date Recorded Sex Assigned at Not on file 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 Please call her on cell phone. Number given. [phone] Action Taken: Message routed to: [facility] ID Travel Screening: Not Applicable Date of Service: documented in this encounter Plan of Treatment Upcoming Encounters Date Type Department Care Team (Late st Contact Info) Description 04/21/2025 2:00 PM CDT Office Visit [facility] Infectious Disease Clinic [address] [phone] Rl Evans MD [address] [place] [address], [facility] [address] [place], [place] [phone] documented as of this encounter Visit Diagnoses Not on filedocumented in this encounter Care Teams Batch Analyst Relationship Specialty Start Date End Date Bijan Crawford [address] [place], [place] [address] PCP - General Family Medicine 01/20/25 Rl Evans MD [address] [place] [address], [facility] [address] [place], [place] [phone] Assigned Infectious Disease Provider 03/15/25 documented as of this encounter
--- OUTSIDE RECORDS SUMMARY | 2025-03-16 21:11 | XMS_ITS | Clinical Summary ---
Author Organization [place] Address [facility] [place] [address] Care Team Providers Care Turning Machine Operator Name Role Phone Bijan Crawford Primary Care Provider [phone] Rl Evans MD Unavailable [phone] Allergies Active Allergy Reactions Criticality Noted Date [...] every 6 hours as needed for pain. 5 Active pantoprazole (PROTONIX) 40 MG EC tablet Take 40 mg by mouth. Active polyethylene glycol (MIRALAX) 17 g packet Take 1 packet by mouth. Active SENNA-TIME 8.6 MG tablet Take 8.6 mg by mouth. 5 Active apixaban ANTICOAGULANT (ELIQUIS) 5 MG tablet Take 5 mg by mouth. 5 Active acetaminophen (TYLENOL) 500 MG tablet Take 1,000 mg by mouth. 5 Active Encounters Date Type Department Care Team Description 03/10/2025 Telephone [facility] [address] [phone] Rl Evans MD conversation (Dr wants to discuss patient with Dr Evans) 02/25/2025 Documentation Only [facility] [id number] [place] [address] Aida Moya LSW Advance Care Planning 02/19/2025 3:00 PM CDT Office Visit [facility] Infectious Disease [address] [facility] [address] [place] [phone] Rl Evans MD Pressure injury of left buttock, stage 4 (H) 02/19/2025 Medical Correspondence [facility] [address] [place] [address] Sunshine, Non-Provider DR PORRAS 02/19/2025 Travel 02/12/2025 Medical Correspondence [facility] [address] [place] [address] Scan, Non-Provider [facility] 01/23/2025 Medical Correspondence [facility] Information Management [address] [place] [address] Scan, Non-Provider [facility] 01/16/2025 Transcribe Orders GENERIC EXTERNAL DATA DEPARTMENT Stella Mejia MD Pressure ulcer (Primary Dx) from Last 3 Months Social History Tobacco Use Types Packs/Day Years Used Date Smoking Tobacco: Former Cigarettes Q uit: 07/24/1971 Smokeless Tobacco: Never Tobacco Cessation:Counseling Given: Not Answered Sex and Gender Information Value Date Recorded Sex Assigned at Not on file Legal Sex Male 2:17 PM ENROBER TENDER Gender Identity Not on file Sexual [...] Mass Index - - Plan of Treatment Upcoming Encounters Date Type Department Care Team (Late st Contact Info) Description 04/21/2025 2:00 PM CDT Office Visit [facility] Disease [facility] [address] [phone] Rl Evans MD [address] [place] [address], [facility] [address] [place] [address] Health Maintenance Due Date Last Done Comments ANNUAL REVIEW OF HM ORDERS 1950 CT COLONOGRAPHY 1950 DIABETES SCREENING 1950 FIT 1950 FLEX SIG 1950 LIPID 1950 URIC ACID 1950 sDNA (Cologuard) 1950 COLONOSCOPY 01/04/1960 COLORECTAL CANCER SCREENING 01/04/1960 HEPATITIS C SCREENING 01/04/1968 FALL RISK ASSESSMENT 2015 MEDICARE ANNUAL WELLNESS VISIT 2015 PHQ-2 (once per calendar year) 2024 INFLUENZA VACCINE (#1) 2025 4, 05/16/2023, 05/08/2003, Additional history exists DTAP/TDAP/TD VACCINE (3 - Td or Tdap) 04/08/2029 04/08/2019, 08/21/2009, 08/16/1999 ADVANCE CARE PLANNING 02/25/2030 02/25/2025 ZOSTER VACCINE Completed 03/09/2018, 12/22, 08/21/2009 PNEUMOCOCCAL [...] - HIM SCAN 2025 12:00 AM CDT from Last 3 Months Results * (ABNORMAL) Microbiology Isolate Referral (01/05/2025 11:40 AM CDT) Culture Streptococcus anginosus(A) 01/09/2025 10:54 AM CDT [facility] Comment:This organism is caitlyn ceptible to ampicillin, penicillin, vancomycin and the cephalosporins. If treatment is required and your patient is allergic to penicillin, contact the microbiology lab within 5 days to request susceptibility testing. Swab STRUCTURE OF LEFT BUTTOCK / Unknown Non-blood Collection / Unknown 01/05/2025 11:40 AM CDT 01/08/2025 2:31 PM CDT us Patricia Randall LAB - MICRO GENERAL ORDERABLE S Final Result [facility] Inf. Diseases Diag. Lab [address] [facility] [place] [address], [facility] * Lab Result - HIM Scan (01/05/2025 12:00 AM CDT) 01/05/2025 us Provider Outside NON-BEAKER LAB TESTING Final Result * CT Imaging - HIM Scan (2025 12:00 AM CDT) Anatomical Region Laterality Modality Computed Tomogra phy 2025 us Provider Outside IM CT ORDERABLES Final Result from Last 3 Months Insurance [employer] Advance Directives For more information, please contact: [phone] Documents on File Type Date Recorded Patient Retail Interior Designer Expl anation Advance Directives and Livin g Will 02/25/2025 POLST 01/26/2023 Care Teams Turning Machine Operator Relationship Specialty Start Date End Date Bijan Crawford [address] [place] [address] PCP - General Family Medicine 01/20/25 Rl Evans MD [address] [place] [address], [facility] [address] [place], [place] [id number] Assigned Infectious Disease Provider 03/15/25
--- OUTSIDE RECORDS SUMMARY | 2025-03-16 21:11 | XMS_ITS | Clinical Summary ---
Author Organization [facility] Address [address] [place] [address] Care Team Providers Care Oil Plant Operator Name Role Phone Jeff Reyes M.D. Primary Care Provider [phone] Source Comments Patient records contain information from all sites at [facility]. For routine questions regarding patient records, call [phone] during business hours, M-F 8:00 AM - 5:00 PM Central Time. Record requests for emergency care only can be directed to [phone] at any time.[facility] Allergies Active Allergy Reactions Criticality Noted Date [...] times a day as needed for constipation. 018 Active latanoprost (XALATAN) 0.005 % ophthalmic solution Administer 1 drop into both eyes daily. 023 Active metoprolol succinate (TOPROL-XL) 100 mg 24 hr tabletIndicatio ns:Hypertension Essential Primary Take 1 tablet (100 mg total) by mouth daily. Do not crush or chew. 90 tablet 023 Active pantoprazole (PROTONIX) 40 mg EC tablet Take 1 tablet (40 mg total) by mouth 2 (two) times a day before breakfast and dinner. 180 tablet 3 023 Active baclofen (LIORESAL) 10 mg tabletIndicatio ns:Multiple Sclerosis (HCC) Take 1 tablet (10 mg total) by mouth 2 (two) times a day. 60 tablet 023 Active lisinopriL (PRINIVIL,ZESTR IL) 40 mg tabletIndicatio ns:Hypertension Essential Primary Take 1 tablet (40 mg total) by mouth daily. 90 tablet 023 Active calcium carbonate (TUMS) 500 mg (200 mg calcium) chewable tablet Chew 2 tablets (400 mg of calcium total) 2 (two) times a day. Active polyethylene glycol (MIRALAX) 17 gram powder packet Take 1 packet (17 g total) by mouth daily as needed for constipation. Dissolve each 17 g dose in 240 mLs (8 ounces) of beverage. 30 each 1 023 Active ondansetron (ZOFRAN) 4 mg tablet Take 4 mg by mouth every 6 (six) hours as needed for nausea or vomiting. Active bacitracin 500 unit/gram ointment Apply 1 Application topically 2 (two) times a day. Active AntifungaL, clotrimazole, 1 % cream Apply 1 Application topically 2 (two) times a day. 024 Active furosemide (Lasix) 40 mg tablet Take 40 mg by mouth every morning. Active potassium chloride 10 mEq ER capsule Take 1 capsule (10 mEq total) by mouth 2 (two) times a day with meals. Active acetaminophen (TylenoL) 500 mg tablet Take 2 tablets (1,000 mg total) by mouth 3 (three) times a day. Active diclofenac sodium (Voltaren) 1 % gelIndications: Multiple Sclerosis (HCC) Apply 2 g topically 2 (two) times a day as needed (pain). Active cholecalciferol 25 mcg (1,000 unit) tablet Take 1 tablet (25 mcg total) by mouth daily. Active senna 8.6 mg tablet Take 17.2 mg by mouth every morning. 025 Active atorvastatin (Lipitor) 80 mg tablet Take 1 tablet (80 mg total) by mouth at bedtime. 90 tablet 3 025 Active apixaban (Eliquis) 5 mg tablet Take 5 mg by mouth 2 (two) times a day. 025 Active cetirizine (ZyrTEC) 10 mg tablet Take 10 mg by mouth at bedtime. Active allopurinoL (Zyloprim) 100 mg tablet Take 100 mg by mouth daily. Active ferrous sulfate tablet Take 325 mg by mouth every other day. Active carbamide peroxide (Debrox) 6.5 % otic solution Administer 5 drops into each ear as needed. Active fluticasone propionate (Flonase) 50 mcg/actuation nasal spray Administer 1 spray into each nostril 2 (two) times a day. 025 Active acetic acid 0.25 % irrigation (sterile) Apply to buttocks wounds topically as needed for wound care Active nitroglycerin (Nitrostat) 0.[address] 0.4 mg under the tongue every 5 (five) minutes as needed for chest pain. 025 Active BD PosiFlush Normal Saline 0.9 injection Use 10 mL via irrigation every day Active metFORMIN XR (Glucophage-XR) 500 mg 24 hr tablet Take 1,000 mg by mouth daily with evening meal. Active saliva substitution (Biotene Dry Mouth Oral Rinse) mouthwash Apply 1 Application to the mouth or throat as needed (dry mouth). Active oxyCODONE (Roxicodone) 5 mg immediate release tabletIndicatio ns:Acute Pain Exception Take 1 tablet (5 mg total) by mouth every 6 (six) hours as needed for severe pain or score 7-10 of 10 Indication: Acute Pain Exception. 12 tablet 0[address] Active aspirin [address] tablet Take 1 tablet (81 mg total) by mouth daily. 60 tablet 023 2024 Discontinued(E rror) NIFEdipine XL (PROCARDIA XL) 90 mg 24 hr tablet Take 1 tablet (90 mg total) by mouth daily. 90 tablet 023 2024 Discontinued(S top Taking at Discharge) furosemide (LASIX) 20 mg tablet Take 1 tablet (20 mg total) by mouth daily. 30 tablet 11 023 2024 Discontinued(S top Taking at Discharge) melatonin 5 mg tablet Take 1 tablet (5 mg total) by mouth at bedtime as needed (for sleep). 30 tablet 11 024 2024 Discontinued(S top Taking at Discharge) apixaban (Eliquis) 5 mg tablet Take 2 tablets (10 mg total) by mouth 2 (two) times a day for 3 days, THEN 1 tablet (5 mg total) 2 (two) times a day. 192 tablet 025 2024 Discontinued GAS RELIEF 80 mg chewable tablet Chew 1 tablet (80 mg total) 4 (four) times a day as needed for flatulence. 025 2024 Discontinued oxyCODONE (Roxicodone) 5 mg immediate release tablet Take 5 mg by mouth every 6 (six) hours as needed for severe pain or score 7-10 of 10. 025 2024 Discontinued metFORMIN (Glucophage) 500 mg tablet Take 500 mg by mouth daily before evening meal. 2024 Discontinued bacitracin zinc 500 unit/gram ointment Apply 1 Application topically 2 (two) times a day. 2024 Discontinued sodium chloride 0.9 % injection 10 mL by intra-catheter route 2 (two) times a day for 4 days. 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 025 2024 oxyCODONE (Roxicodone) 5 mg immediate release tabletIndicatio ns:Acute Pain Exception Take 1 tablet (5 mg total) by mouth every 6 (six) hours as needed for severe pain or score 7-10 of 10 Indication: Acute Pain Exception. 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 Assessment & Plan (07/04/2018 2:56 PM CUT OFF SAW OPERATOR METAL): Continue I&O catheterization as needed Multiple Sclerosis 06/03/2003 Assessment & Plan (07/04/2018 3:32 PM CUT OFF SAW OPERATOR METAL): -Continue to follow with Neurology for further recommendations Resolved Problems Problem Noted Date Diagnosed Date Resolved Date Sprain Ankle Initial Right 11/08/2022 0 11/09/2022 Obesity Unspecified 03/21/2019 11/10/19 23 Urinary Tract Infection Site Not Specified 07/04/2018 11/09/2022 Overview (07/04/2018): Completed ciprofloxacin 500 mg b.i.d. for an antibiotic course of 14 days (last dose on 06/08/2018) Assessment & Plan (07/04/2018 3:31 PM CUT OFF SAW OPERATOR METAL): -Patient denies any urinary symptoms today on exam. -Continue care cranberry 450 mg daily Failure Renal Acute (Acute Kidney Injury) 05/27/2018 10/19/2022 Non-ST Elevation Myocardial Infarction 05/26/2018 10/23/2019 Assessment & Plan (07/04/2018 10:14 AM CUT OFF SAW OPERATOR METAL): 1. Continue aspirin 81 mg daily 2. [...] Date Type Department Care Team Description 03/14/2025 Clinical Communication Department of General Surgery in [place] [address] [place] [address] Roland Bensno D.O. Communication (Regarding appointment in April) 03/13/2025 2:40 PM CDT Telemedicine Department of Oncology in [place], [place] [address] [place] [address] Pablo Vo M.D. 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 Other (Call Back) 03/04/2025 8:29 AM CDT - 03/04/2025 11:59 PM CDT Hospital Encounter Department of Radiology in [place], [place] [address] [place] [address] Pablo Vo M.D. Embolus Pulmonary (HCC) Discharge Disposition: Home or Self Care 03/03/2025 Clinical Communication Department of Infectious Diseases in [address] [phone] Roz Carlos R.N. OPAT (Completion of therapy) 02/28/2025 Clinical Communication Department of Infectious Diseases in [address] [phone] Matilda Hammer R.N. Post Hospital Follow-up (IV antibiotics) 02/27/2025 9:45 AM CDT Ancillary Procedure Department of Oncology 02/26/2025 1:45 PM CDT Ancillary Procedure Department of Wound Ostomy 02/26/2025 1:40 PM CDT Ancillary Procedure Department of Wound Ostomy 02/26/2025 1:15 PM CDT Ancillary Procedure Department of Wound Ostomy 02/25/2025 Orders Only [facility] Jeff Sullivan M.D. 02/24/2025 11:25 AM CDT Ancillary Procedure Department of Wound Ostomy 02/24/2025 11:20 AM CDT Ancillary Procedure Department of Wound Ostomy 02/24/2025 11:15 AM CDT Ancillary Procedure Department of Wound Ostomy 02/22/2025 12:35 AM CDT Ancillary Procedure Department of Nursing 02/22/2025 - 02/27/2025 12:16 PM CDT Hospital Encounter [facility], Fourth Floor [address] [place] [phone] Nneka Thomas M.B.B.S., M.D. Xu, Qiping, M.D. Byrd, David W, M.D. 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 02/04/2025 12:11 PM CDT - 02/04/2025 1:42 PM CDT Hospital Encounter Department of Radiology in [place], [place] [address] [place] [address] Anuel Nunn M.D. Cholecystitis Discharge Disposition: Home or Self Care 01/31/2025 Clinical Communication Department of Oncology in [place], [place] [address] [place] [address] Pablo Vo M.D. Nurse call back 01/23/2025 5:26 PM CDT - 01/24/2025 12:38 AM CDT Emergency [facility] Emergency Department [address] [place] [phone] Ollie Walters M.D. 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 12/17/2024 Orders Only [facility] [address] [place] [id number] Jeff Reyes M.D. Screening Cancer Colon from [...] living? Patient unable to answer 02/27/2025 [facility] Utilities Answer Date [...] Sex Assigned at Male 06/26/2018 4:20 PM CUT OFF SAW OPERATOR METAL Legal Sex Male 3:33 AM CUT OFF SAW OPERATOR METAL Gender Identity Not on file Sexual Orientation [...] Mass Index 29.89 02/22/2025 12:08 AM CDT Plan of Treatment Upcoming Encounters Date Type Department Care Team (Latest Contact Info) Description 04/28/2025 1:00 PM CDT Comprehensive Visit Department of General Surgery in [place], [place] [address] [place] [phone] Roland Benson D.O. [address] [place] [phone] Discharge Disposition: Home or Self Care Health [...] 10/20/2023 10/19/2022 Depression Screening (Annual PHQ-2) 07/24/2024 Visit: Medicare Annual Wellness 02/07/2025 02/07/2024 Influenza Vaccine (#1) 2025 , 05/16/2023, 05/08/2003, Additional history exists Office Visit for Blood Pressure Check / Re-check 11/12/2025 11/12/2024 Creatinine Level (Kidney Function Test) 03/11/2026 03/11/2025, 03/04/2025, 02/27/2025, Additional history exists Potassium Level 03/11/2026 03/11/2025, 02/21, 02/27/2025, Additional history exists Sodium Level 03/11/2026 03/11/2025, 02/21, 02/27/2025, Additional history exists Fasting Glucose for Diabetes Screening 03/11/2028 03/11/2025, 03/04/2025, 02/27/2025, Additional history exists DTaP,Tdap,and Td Vaccines (3 - Td or Tdap) 04/08/2029 04/08/2019, 08/21/2009, 08/16/1999 Lipid (Cholesterol) Screening 11/05/2029 11/05/2024, 10/25/2021, 04/06/2020, Additional history exists Zoster Vaccines Completed 03/09/2018, 12/22, 08/21/2009 Pneumococcal vaccine (50+ years) Completed 03/21/2019, 04/21/2015, 08/03/2011 RSV vaccine - (32-36 weeks) or 60+ years Completed 05/17/2024 COVID-19 Vaccine Completed 12/04/2024, , 11/21/2023, Additional history exists Abdominal Aortic Aneurysm (AAA) Screen Discontinued 01/23/2025, 09/15/2024, 09/02/2024, Additional history exists Fall Risk Screen (Annual) Completed 02/04/2025 IPV Vaccines Aged Out No longer eligi ble based on patient's age to complete this topic Medical Devices Implanted Type Area Commercial Representative Device Identifier Shelf Expiration Date Model / Serial / Lot Scrw St 24pthrd 8.0x105 - [id number] Implanted:Qty : 1 on 12/15/2022 by Jana Don M.D. at [facility] Hardware e.g. pins/screws/ rods Right: [employer] [id number]- [id number] / / Scrw Vthrd Fast 7.0x105 - [id number] Implanted:Qty : 2 on 12/15/2022 by Jana Don M.D. at [facility] Hardware e.g. pins/screws/ rods Right: [employer] [id number]- [id number] / / Washr Flt 1.5x13 - [id number] Implanted:Qty : 4 on 12/15/2022 by Jana Don M.D. at [facility] Hardware e.g. 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) [facility] IMAGE EXAM Routine 02/27/2025 9:45 AM CDT GLUCOSE POCT, B Routine 02/27/2025 6:54 AM [...] (Ulcer) Of Sacral Region Stage 4 (HCC) WOUND OSTOMY IMAGE EXAM Routine 02/26/2025 1:41 PM CDT WOUND OSTOMY IMAGE EXAM Routine 02/26/2025 1:40 PM CDT WOUND OSTOMY IMAGE EXAM Routine 02/26/2025 1:14 PM CDT GLUCOSE POCT, B Routine 02/26/2025 11:42 AM CDT GLUCOSE POCT, B Routine 02/26/2025 7:23 AM CDT COMPREHENSIVE METABOLIC PANEL, S/P Routine 02/26/2025 6:21 AM CDT CBC WITH DIFFERENTIAL, B Routine 02/26/2025 6:21 AM CDT GLUCOSE POCT, B Routine 02/25/2025 8:17 PM CDT GLUCOSE POCT, B Routine 02/25/2025 4:13 PM CDT GLUCOSE POCT, B Routine 02/25/2025 11:22 AM CDT HEPATIC FUNCTION PANEL, S Routine 02/25/2025 7:59 AM CDT BASIC METABOLIC PANEL, S/P Routine 02/25/2025 7:59 AM CDT CBC WITH DIFFERENTIAL, B Routine 02/25/2025 7:59 AM CDT GLUCOSE POCT, B Routine 02/25/2025 6:51 AM CDT GLUCOSE POCT, B Routine 02/24/2025 9:29 PM CDT GLUCOSE POCT, B Routine 02/24/2025 5:07 PM CDT [place] NEG PRESS WND THRPY <=50SCM Routine 02/24/2025 12:15 PM CDT Pressure Ulcer Of Unspecified Site Stage 4 (HCC) [place] NEG PRESS WND THRPY <=50SCM Routine 02/24/2025 12:13 PM CDT 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) GLUCOSE POCT, B Routine 02/24/2025 11:29 AM CDT WOUND OSTOMY IMAGE EXAM Routine 02/24/2025 11:17 AM CDT WOUND OSTOMY IMAGE EXAM Routine 02/24/2025 11:17 AM CDT WOUND OSTOMY IMAGE EXAM Routine 02/24/2025 11:15 AM CDT GLUCOSE POCT, B Routine 02/24/2025 5:44 AM CDT BASIC METABOLIC PANEL, S/P Routine 02/24/2025 5:44 AM CDT CBC WITH DIFFERENTIAL, B Routine 02/24/2025 5:44 AM CDT HEPATIC FUNCTION PANEL, S Routine 02/24/2025 5:44 AM CDT GLUCOSE POCT, B Routine 02/23/2025 8:28 PM CDT GLUCOSE POCT, B Routine 02/23/2025 4:41 PM CDT GLUCOSE POCT, B Routine 02/23/2025 11:06 AM CDT GLUCOSE POCT, B Routine 02/23/2025 8:11 AM CDT BASIC METABOLIC PANEL, S/P Routine 02/23/2025 6:17 AM CDT URIC ACID, S/P Routine 02/23/2025 6:17 AM CDT HEPATIC FUNCTION PANEL, S Routine 02/23/2025 6:17 AM CDT GLUCOSE POCT, [...] and all outpatients) 02/22/2025 1:05 PM CDT CRYSTAL ID, BF Timed 02/22/2025 12:30 PM CDT CELL COUNT AND DIFFERENTIAL, BF Timed 02/22/2025 12:30 PM CDT GRAM STAIN Timed 02/22/2025 12:30 PM CDT BACTERIAL CULTURE, ANAEROBIC + SUSC Timed 02/22/2025 12:30 PM CDT BACTERIAL CULTURE, AEROBIC + SUSC Timed 02/22/2025 12:30 PM CDT GLUCOSE POCT, B Routine 02/22/2025 11:12 AM CDT GLUCOSE POCT, B Routine 02/22/2025 7:56 AM CDT ECG Routine 02/22/2025 6:47 AM CDT URINALYSIS, DIPSTICK Routine 02/22/2025 5:02 AM CDT SARS COV-2,INFLUENZA A/B,RSV,PCR, V Routine 02/22/2025 5:02 AM CDT BACTERIAL CULTURE, AEROBIC + SUSC, URINE Routine 02/22/2025 5:02 AM CDT DX KNEE RIGHT 4+ VIEWS RAD - Semiurgent (Fast; most ED patients; some inpatients) 02/22/2025 4:55 AM CDT DX WRIST RIGHT 3+ VIEWS RAD - Semiurgent (Fast; most ED patients; some inpatients) 02/22/2025 4:50 AM CDT BACTERIA / ZENOBIA CULTURE, BLOOD STAT 02/22/2025 4:35 AM CDT LACTATE FOR SEPSIS WITH REFLEX STAT 02/22/2025 4:28 AM CDT COMPREHENSIVE METABOLIC PANEL, S/P Routine 02/22/2025 4:28 AM CDT CBC WITH DIFFERENTIAL, B Routine 02/22/2025 4:28 AM CDT BACTERIA / ZENOBIA CULTURE, BLOOD STAT 02/22/2025 4:28 AM CDT GLUCOSE POCT, B Routine 02/22/2025 1:28 AM CDT NURSING IMAGE EXAM Routine 02/22/2025 12:[address] BODY Routine 02/21/2025 1:15 PM CDT IR PERCUTANEOUS CHOLECYSTOSTOMY TUBE EXCHANGE RAD [...] Hyperlipidemia On Treatment Atherosclerotic Heart Disease Of [place] Coronary Artery Without Angina Pectoris from Last 3 Months or Most Recently Relevant to Health Maintenance Results * CT Chest Angiogram and Pulmonary [...] evidence of right heartstrain. Pablo Vo M.D. IMG CT PROCEDURES Final Result * Glucose, POCT (02/27/2025 11:38 AM CDT) Only the most recent of23 resultswithin the time period is included. Glucose, POCT, B 137 70 - 140 mg/dL 02/27/2025 11:38 AM CDT MKTO Blood 02/27/2025 11:3 8 AM CDT 02/27/2025 11:48 AM CDT Generic Rals LAB POCT ORDERABLES-MANUAL Final Result [facility] [address] [place] [address], [place] MKTO [facility] [place] [address] [place] [address] * Place midline catheter (single lumen) (02/27/2025 [...] PROCEDURE/MINOR SURGICAL ORDER TOMY Final Result * Vein / Vasc Access-Ambulatory Infusion Center [...] NON RAD IMAGING PROCE DURES Final Result IIFL NA * (ABNORMAL) Comprehensive Metabolic Panel (02/27/2025 6:37 AM CDT) Only the most recent of3 resultswithin the time period is included. Potassium, P 3.2(L) 3.6 - 5.2 mmol/L [...] Sung M.D. LAB BLOOD ADD-ON Final Result [facility] [place] [address], [facility] MKTO [facility] [place] [address] [place] [phone] * Wound Vac (02/26/2025 2:08 PM CDT) Narrative Vivian Smith D, R.N., CWON - 02/26/2025 2:08 PM CDT Vivian Smith [...] complications Ren Sung M.D. PROCEDURE/MINOR SURGICAL ORDER TOYM Final Result * Wound Vac (02/26/2025 2:06 [...] PROCEDURE/MINOR SURGICAL ORDER TOMY Final Result * Foot left medial heel 445-Wound Ostomy Image Exam (02/26/2025 1:41 PM CDT) Only the most recent of6 resultswithin the time period is included. 02/26/2025 1:39 PM CDT Narrative [facility]S - 02/26/2025 1:41 PM CDT This order has been created and auto-finalized to support the import of images acquired without order. The clinical documentation to support these images can be found on the encounter that produced images. us Provider Not In System IMG NON RAD IMAGING PROCE DURES Final Result IIFL NA * (ABNORMAL) CBC with Differential, Blood (02/26/2025 6:21 AM CDT) Only the most recent of4 resultswithin the time period is included. Hemoglobin 9.2(L) 13.2 - 16.6 g/dL 02/26/2025 [...] Chand M.D. LAB BLOOD ADD-ON Final Result [facility] [place] [address], [facility] MKTO [facility] [place] [place] [address] * (ABNORMAL) Hepatic Function Panel (02/25/2025 7:59 AM CDT) Only the most recent of4 resultswithin the time period is included. Bilirubin, [...] BLOOD ADD-ON Final Result Performing Organization Address City/[facility]/ZIP Co de Phone Number [facility] [address] [place] [phone], [facility] MKTO [facility] [place] [address] [place] [address] * (ABNORMAL) Basic Metabolic Panel (02/25/2025 7:59 AM CDT) Only the most recent of5 resultswithin the time period is included. Pathologist [facility] Potassium, P 3.8 3.6 - 5.2 mmol/L [...] Chand M.D. LAB BLOOD ADD-ON Final Result [facility] [address] [place] [phone], [facility] [place] [address] [place] [address] * NJ NEG PRESS WND THRPY <=50SCM (02/24/2025 12:15 [...] PROCEDURE/MINOR SURGICAL ORDERAB LES Final Result * NJ NEG PRESS WND THRPY <=50SCM (02/24/2025 12:13 PM CDT) Narrative Paty Duque R.N., Vannesa, LAKISHA - 02/24/2025 12:13 PM CDT Paty Duque R.N., Vannesa, LAKISHA 02/24/2025 12:15 PM Wound Vac Performed by: Paty Duque R.N., Vannesa, CWON Authorized by: Nelson Chand M.D. Care team members present 1. Vivian Smith R.N., LAKISHA PROCEDURE DETAILS Wound location: sacrum/buttock Wound laterality: [...] PROCEDURE/MINOR SURGICAL ORDERAB LES Final Result * (ABNORMAL) Uric Acid (02/23/2025 6:17 AM CDT) Uric Acid, P 10.9(H) 3.7 - 8.0 mg/dL 02/23/2025 8:52 AM CDT [facility] Blood (Blood, Venous) 02/23/2025 6:17 AM CDT 02/23/2025 8:40 AM CDT us Nelson Chand M.D. LAB BLOOD ADD-ON Final Result [facility] [address] [place] [address], [facility] [place] [address] * IR Percutaneous Cholecystostomy Tube Check (02/22/2025 [...] medications. Patient education provided by a care hourly team members. Patient's family member was ready to learn with no apparent learning barriers were identified. Post-procedure care explained; patient's family member expressed understanding of the content. PROCEDURE DETAILS: Sedation: None. Sedation time: Not applicable. Estimated Blood Loss: None. TECHNIQUE: The indwelling 14 Gambian drainage catheter was injected with contrast, and [...] readily flows into the duodenum. PLAN: Routine jazmín tube exchange 3 months after the previous exchange. Procedure Note Anule Nunn M.D. - 02/22/2025 EXAM: IR PERCUTANEOUS [...] current medications. Patient education provided by acare hourly team members. Patient's family member was ready to learn with noapparent learning barriers were identified. Post-procedure care explained;patient's family member expressed understanding of the content. PROCEDURE DETAILS: Sedation: None. Sedation time: Not applicable. Estimated Blood Loss: None. TECHNIQUE: The indwelling 14 Gambian drainage catheter was injected with contrast, andmultiple [...] Contrastreadily flows into the duodenum. PLAN: Routine jazmín tube exchange 3 months after the previous exchange. IMPRESSION: 1. Patent cholecystostomy tube. 2. Intermittent cystic duct obstruction; cystic duct is open on today'sexam. 3. Common bile duct sludge without causing hepatic ductal dilatation. Elder SANCHEZ IR PROCEDURES Final Res ult * RAD US Joint Aspiration and or [...] medications. Patient education provided by a care hourly team members. Patient's family member was ready to learn [...] current medications. Patient education provided by acare hourly team members. Patient's family member was ready to learn [...] M.D. IMG US PROCEDURES Final Result * Bacterial Culture, Aerobic + Susceptibility (02/22/2025 12:30 PM CDT) Bacterial Culture, Aerobic + Susc No growth after 5 days of incubation. 02/27/2025 6:42 AM CDT MKTO Fluid (Synovial Fluid, Right Wrist) 02/22/2025 12:30 PM CDT 02/22/2025 12:48 PM CDT Comment:Specimen Source Site : Fluid us Nelson Chand M.D. LAB MICROBIOLOGY - GENERAL ORDER TOMY Final Result [facility] [address] [place] [address], [facility] MKTO [facility] [place] [address] [place] [address] * Crystal Identification, Body Fluid (02/22/2025 12:30 [...] FLUIDS AND STOOLS ORDER TOMY Final Result [facility] [address] [place] [address], [facility] MKTO [facility] [place] [address] [place] [address] * Cell Count and Differential, Body Fluid (02/22/2025 12:30 PM CDT) Fluid Type RightWrist 02/22/2025 2:18 PM CDT MKTO Gross Appearance Slightly Cloudy 02/22/2025 2:18 PM CDT [facility] Total Nucleated Cells 150 /mcL 02/22/2025 2:18 PM CDT MKTO Comment: ----REFERENCE VALUE---- Synovial: <150 Peritoneal: <500 Pleural: <500 Pericardial: <500 ----ADDITIONAL INFORMATION---- This test has been modified from the wind turbine machinist's instructions. Its performance characteristics were determined by [facility] in a manner consistent with [...] Edited Result - Final Performing Organization Address City/[facility]/ZIP Co de Phone Number [facility] [address] [place] [address], [place] [address] * Gram Stain (02/22/2025 12:30 PM CDT) Gram Stain No organisms seen. White blood cells present. Stain performed on concentrated cytospin preparation. 02/22/2025 2:13 PM CDT [facility] Fluid (Synovial Fluid, Right Wrist) 02/22/2025 12:30 PM CDT 02/22/2025 12:48 PM CDT Comment:Specimen Source Site : Fluid us Nelson Chand M.D. LAB MICROBIOLOGY - GENERAL ORDER TOMY Final Result Performing Organization Address [facility] Co de Phone Number [facility] [address] [place] [address], [place] [address] * Bacterial Culture, Anaerobic + Susceptibility (02/22/2025 12:30 PM CDT) Bacterial Culture, Anaerobic No growth after 7 days of incubation. 03/01/2025 7:49 AM CDT [facility] Fluid (Synovial Fluid, Right Wrist) 02/22/2025 12:30 PM CDT 02/22/2025 12:48 PM CDT Comment:Specimen Source Site : Fluid us Nelson Chand M.D. LAB MICROBIOLOGY - GENERAL ORDER TOMY Final Result Performing Organization Address City/[facility]/ZIP Co de Phone Number [facility] [address] [place] [address], [facility] [address] [place] [address] * ECG 12 Lead (02/22/2025 6:47 AM CDT) Only the most recent of2 resultswithin the time period is included. Ventricular Rate ECG/Min 98 BPM MUSE [place] Interval 206 ms MUSE QRSD Interval 90 ms MUSE QT Interval 316 ms MUSE QTC Interval 403 ms MUSE P [place] 68 degrees MUSE R [place] 11 degrees MUSE T Wave [place] 69 degrees MUSE 02/22/2025 6:47 AM CDT [...] test using the Xpert Xpress SARS-CoV-2/Flu/RSV assay ([employer] performed on the [employer] systems has received Emergency Use Authorization (EUA) by the U.S. Food and Drug Administration. Performance characteristics were verified by [facility] in a manner consistent with CLIA requirements. Fact sheets for this Emergency Use Authorization (EUA) assay can be found at the following links: For Healthcare Providers: https://www.fda.gov/media/739518/download For Patients: https://www.fda.gov/media/173469/download Specimen Source Swab, Nasopharynx 02/22/2025 5:08 AM CDT MKTO Swab (Nasopharynx) 02/22/2025 5:02 AM CDT 02/22/2025 5:08 AM CDT Nneka Yañez M.D. LAB MICROBIOLOG Y - GENERAL ORDERABLES Final Result [facility] [address] [place] [address] [place] [address] * (ABNORMAL) Urinalysis, Dipstick (02/22/2025 5:02 AM [...] 8.0 02/22/2025 5:17 AM CDT MKTO Specific [place]iloh >1.035(A) 1.001 - 1.035 02/22/2025 5:17 AM CDT [facility] Urobilinogen 1.0 0.2 - 1.0 mg/dL 02/22/2025 5:17 AM CDT [facility] Urine (Urine, Midstream) 02/22/2025 5:02 AM CDT 02/22/2025 5:17 AM CDT us Nneka Yañez M.D. LAB URINE ORDER TOMY Final Result Performing Organization Address [facility] Co de Phone Number [facility] [address] [place] [address] * Bacterial Culture, Aerobic + Susceptibility, Urine (02/22/2025 5:02 AM CDT) Urine Culture No growth after 1 day of incubation. 02/23/2025 8:47 AM CDT MKTO Urine (Urine, Indwelling Catheter) 02/22/2025 5:02 AM CDT 02/22/2025 5:11 AM CDT Comment:Specimen Source Site : Urine us Nneka Yañez M.D. LAB MICROBIOLOG Y - GENERAL ORDERABLES Final Result Performing Organization Address [facility]/ZIP Co de Phone Number [facility] [address] [place] [address], [place] [address] * DX Knee Right 4+ Views (02/22/2025 [...] Chondrocalcinosis. Small suprapatellar spur. Nneka RaderBAmparoSShankar Christensen [facility] DIAGNOSTIC IMAGING PROCEDURES Final Result * DX [...] although to a much lesser degree than [id number]. Nneka SuarezBAmparoB.SShankar Christensen IMG DIAGNOSTIC IMAGING PROCEDURES Final Result * Bacteria / Zenobia Culture, Blood #2 (02/22/2025 4:35 AM CDT) Only the most recent of4 resultswithin the time period is included. Bacteria/Vannessa da Culture, Blood No growth after 5 day/s of incubation. 02/27/2025 5:05 AM CDT MK Blood (Blood, Peripheral Draw) 02/22/2025 4:35 AM CDT 02/22/2025 4:48 AM CDT Comment:Specimen Source Site : Blood us Nneka Yañez M.D. LAB MICROBIOLOG Y - GENERAL ORDERABLES Final Result Performing Organization Address City/[facility]/ZIP Co de Phone Number [facility] [address] [place] [address] * Lactate for Sepsis with Reflex (02/22/2025 4:28 AM CDT) Only the most recent of2 resultswithin the time period is included. Pathologist [facility] Lactate, B 1.9 0.5 - 2.2 mmol/L 02/22/2025 5:01 AM CDT [facility] Blood (Blood, Venous) 02/22/2025 4:28 AM CDT 02/22/2025 4:48 AM CDT us Nneka Yañez M.D. LAB BLOOD NON A DD-ON Final Result [facility] [address] [place] [address] * Buttock/Sacrum-Nursing Image Exam (02/22/2025 12:35 AM [...] PROCE DURES Final Result Performing Organization Address [facility] de Phone Number [facility] NA * CT chest abdomen pelv w con-Outside CT Body (02/21/2025 1:15 PM CDT) Narrative [facility] - 02/21/2025 6:28 PM CDT This order has been created and auto-finalized to support the import of outside images. If available, original interpretation can be found on the Media Tab in Chart Review, in Document Viewer, as an image in InfinityView or as an Addendum. If a re-interpretation or overread is required please follow defined workflow. us Provider Not In System IM CT PROCEDURES Final R esult Performing Organization Address [facility] de Phone Number [facility] NA * IR Percutaneous Cholecystostomy Tube Exchange (02/04/2025 [...] male with history of cholecystitis requiring 14 Gambian cholecystostomy catheter, routine 3 month exchange COMPARISON: [...] medications. Patient education provided by a care hourly team members. Patient was ready to learn with no apparent learning barriers were identified. Post-procedure care explained; patient expressed understanding of the content. PROCEDURE DETAILS: Sedation: None. Sedation time: Not applicable. Estimated Blood Loss: Less than 10 mL. TECHNIQUE: Imaging guidance for catheter exchange: Fluoroscopy with permanent image storage Access side: Right lateral abdomen intercostal transhepatic Catheter: 14 Gambian 25 cm multipurpose pigtail drain Technique: The indwelling catheter was injected with contrast. A guidewire was inserted through the catheter, and the catheter was exchanged for a new 14 Gambian catheter. Contrast was injected confirming the location [...] medications. Patient education provided by a care hourly team members. Patient was ready to learn withno apparent learning barriers were identified. Post-procedure careexplained; patient expressed understanding of the content. PROCEDURE DETAILS: Sedation: None. Sedation time: Not applicable. Estimated Blood Loss: Less than 10 mL. TECHNIQUE: Imaging guidance for catheter exchange: Fluoroscopy with permanent imagestorage Access side: Right lateral abdomen intercostal transhepatic Catheter: 14 Gambian 25 cm multipurpose pigtail drain Technique: The indwelling catheter was injected with contrast. A guidewirewas inserted through the catheter, and the catheter was exchanged for anew 14 Gambian catheter. Contrast was injected confirming the location [...] M.D. LAB URINE ORDERABLES Fin al Result [facility] [address] [place] [address], [facility] [address] [place] [address] * Microscopic Automated (01/23/2025 8:37 PM CDT) [facility] Microscopy Normal 01/23/2025 8:57 PM CDT DTL RBC <3 <3 /hpf 01/23/2025 8:57 PM CDT DTL WBC 1-3 /hpf 01/23/2025 8:57 PM CDT DTL Comment: ----REFERENCE VALUE---- <4 (Males) <11 (Females) Casts, Hyaline 11-20 /lpf 01/23/2025 8:57 PM CDT DTL Urine 01/23/2025 8:37 PM CDT 01/23/2025 8:49 PM CDT Chung Mehta M.D. LAB URINE ORDERABLES Fin al Result [facility] [address] [place], [place] [address] [place] [address] [address] [place] [address] * pH, Urine (01/23/2025 8:37 PM CDT) [facility] pH, U 5.4 4.5 - 8.0 01/23/2025 9:0 3 PM CDT DTL Urine 01/23/2025 8:37 PM CDT 01/23/2025 8:49 PM CDT Chung Mehta M.D. LAB URINE ORDERABLES Fin al Result [facility] [address] [place] [address] * Osmolality, Urine (01/23/2025 8:37 PM CDT) [facility] Osmolality, U 409 150 - 1150 mOsm/kg 01/23/2025 9:03 PM CDT DTL Urine 01/23/2025 8:37 PM CDT 01/23/2025 8:49 PM CDT Chung Mehta M.D. LAB URINE ORDERABLES Fin al Result Performing Organization Address City/[facility]/ZIP Co de Phone Number [facility] [address] [place] [address], [facility] [address] [place] [address] * Urinalysis, with Microscopic: Urine, Catheter (01/23/2025 [...] ORDERABLES Fin al Result Performing Organization Address City/[facility]/ZIP Co de Phone Number [facility] [address] [place] [address], [place] [facility] [address] [place] [address] * (ABNORMAL) Sedimentation Rate (01/23/2025 8:36 PM CDT) Sedimentation Rate, B 109(H) 3 - 28 mm/h 01/23/2025 9:29 PM CDT DTL Blood (Blood, Venous) 01/23/2025 8:36 PM CDT 01/23/2025 8:47 PM CDT Chung Mehta M.D. LAB BLOOD ADD-ON Final R esult Performing Organization Address City/[facility]/ZIP Co de Phone Number [facility] [address] [place] [address], [facility] [address] [place] [address] * (ABNORMAL) CRP (C-Reactive Protein) (01/23/2025 8:36 PM CDT) Pathologist [facility] C-Reactive Protein (CRP), S 124.8(H) <5.0 mg/L 01/23/2025 9:28 PM CDT DTL Blood (Blood, Venous) 01/23/2025 8:36 PM CDT 01/23/2025 9:01 PM CDT Chung Mehta M.D. LAB BLOOD ADD-ON Final R esult Performing Organization Address City/[facility] Co de Phone Number [facility] [address] [place] [address], [facility] [address] [place] [address] * CT Abdomen Pelvis with IV Contrast [...] * Lactate, B (01/23/2025 6:55 PM CDT) [facility] Lactate, B 1.2 0.5 - 2.2 mmol/L 01/23/2025 7:05 PM CDT [facility] Blood (Blood, Venous) 01/23/2025 6:55 PM CDT 01/23/2025 7:02 PM CDT Ollie Walters M.D. LAB BLOOD NON ADD-ON Final Res ult [facility] [address] [place] [address], [facility] [address] [place] [address] * (ABNORMAL) CBC without Differential (01/23/2025 6:55 PM CDT) [facility] Hemoglobin 10.6(L) 13.2 - 16.6 g/dL 01/23/2025 [...] BLOOD ADD-ON Final Result Performing Organization Address City/[facility]/ZIP Co de Phone Number [address] [place] [address] * Lipase (01/23/2025 6:55 PM CDT) Lipase, S 16 13 - 60 U/L 01/23/2025 7: 42 PM CDT DTL Blood (Blood, Venous) 01/23/2025 6:55 PM CDT 01/23/2025 7:25 PM CDT Ollie Walters M.D. LAB BLOOD ADD-ON Final Result Performing Organization Address [facility] [place] [address], [facility] [address] * (ABNORMAL) Lipid Panel (11/05/2024 9:32 AM [...] BLOOD ADD-ON Final Result Performing Organization Address City/State/[facility] de Phone Number [facility] [address] [place] [address], [facility] OWAT [facility] [place] [address] [place] [address] from Last 3 Months or Most Recently Relevant to Health Maintenance Insurance MEDICA Advance Directives For more information, please contact: [phone] Documents on File Type Date Recorded Patient Director Cpg Expl anation Advance Directives 08/08/2024 6:58 AM POLS T/MOLST Advance Directives 09/28/2017 12:41 PM POLS T/MOLST Advance Directives 03/16/2017 12:00 AM Leg acy document. See document viewer. * Full Code (Latest Code Status on File) Date Activated Date Inactivated Comments 02/22/2025 1:43 AM 02/27/2025 2:26 PM Question Answer Comments Full Code: Not Discussed Due to: Patient does not have the capaci ty * DNR/DNI Date Activated Date Inactivated Comments 08/08/2024 4:01 [...] Comments 12/14/2022 5:41 PM 12/15/2022 11:01 AM Care Teams Oil Plant Operator Relationship Specialty Start Date End Date Jeff [place] [phone] PCP - General 03/14/24
--- OUTSIDE RECORDS SUMMARY | 2025-03-16 21:11 | XMS_ITS | Encounter Summary ---
Author Organization [facility] Address [address] [place] [address]. [place] [address] Care Team Providers Care Compensation/Benefits Specialist Name Role Phone Ty Bijan Leonidas Primary Care Provider [phone] Reason for Visit * Reason Onset Date Comments Advance Care Planning 02/25/2025 Encounter Details Date Type Department Care Team (Late st Contact Info) Description 02/25/2025 Documentation Only [facility] [address] [facility] [address] [place] [phone] Aida Moya, WEB MARKETING ANALYST [facility] [id number] [place], [place] [address] Advance Care Planning Social History Tobacco Use Types Packs/Day Years Used Date Smoking Tobacco: Former Cigarettes Q uit: 07/24/1971 Smokeless Tobacco: Never Sex and Gender Information Value Date Recorded Sex Assigned at Not on file 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 Gender Identity Not on file Sexual Orientation Not on file documented as of this encounter Plan of Treatment Upcoming Encounters Date Type Department Care Team (Late st Contact Info) Description 04/21/2025 2:00 PM CDT Office Visit [facility] [place] [address] [place] [address] Rl Evans MD [address] [facility] [address] [place], [place] [address] documented as of this encounter Visit Diagnoses Not on filedocumented in this encounter Care Teams Compensation/Benefits Specialist Relationship Specialty Start Date End Date iBjan Crawford [address] [place] [address] PCP - General Family Medicine 01/20/25 documented as of this encounter
--- OUTSIDE RECORDS SUMMARY | 2025-03-16 21:11 | XMS_ITS | Encounter Summary ---
Author Organization [place] Address [facility] [facility] 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 Gender Identity Not on file Sexual Orientation Not on file documented as of this encounter Plan of Treatment Upcoming Encounters Date Type Department Care Team (Late st Contact Info) Description 04/21/2025 2:00 PM CDT Office Visit [facility] [address] [address] Rl Evans MD [address] [facility] [address] [place] [address] documented as of this encounter Visit Diagnoses Not on filedocumented in this encounter Care Teams Designer And Patternmaker Relationship Specialty Start Date End Date Bijan Crawford [id number] [facility] [address] [place] [address] PCP - General Family Medicine 01/20/25 documented as of this encounter
--- OUTSIDE RECORDS SUMMARY | 2025-03-16 21:11 | XMS_ITS | Encounter Summary ---
Author Organization [place] Address [address] [place] [address]. [place] [address] Care Team Providers Care Track Vehicle Repairer Name Role Phone TyBijan Primary Care Provider [phone] Encounter Details Date Type Department Care Team (Late st Contact Info) Description 02/19/2025 Medical Correspondence [facility] Information Management [address] [facility] [address] [place] [address] Scan, Non-Provider DR PORRAS Social History Tobacco Use Types Packs/Day Years Used Date Smoking Tobacco: Former Cigarettes Q uit: 07/24/1971 Smokeless Tobacco: Never Sex and Gender Information Value Date Recorded Sex Assigned at Not on file 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 Gender Identity Not on file Sexual Orientation Not on file documented as of this encounter Plan of Treatment Upcoming Encounters Date Type Department Care Team (Late st Contact Info) Description 04/21/2025 2:00 PM CDT Office Visit [facility] [address] [address] Rl Evans MD [address] [place] [address], [facility] [address] [place], [place] [address] documented as of this encounter Visit Diagnoses Not on filedocumented in this encounter Care Teams Track Vehicle Repairer Relationship Specialty Start Date End Date Bijan Crawford Leonidas [address] [place] [address] PCP - General Family Medicine 01/20/25 documented as of this encounter
--- OUTSIDE RECORDS SUMMARY | 2025-03-16 21:13 | XMS_ITS | Patient Health Record ---
Author Organization [facility] Address [address] [facility] [address] [place] [address] Care Team Providers Care Spindle Frame Carver Name Role Phone Rubén Paez MD Primary Care Provider Melody Michael [place] Unavailable [phone] Reason For Referral No Information Social History Tobacco Use: Social History Observation Description Date Details (start date - stop date) Former Smoker NA - NA Tobacco Use/Smoking Question Answer Notes Are you a former smoker Section Notes: FAMILY HISTORY: HISTORY OF FAMILY PSYCH: Problems Problem Type SNOMED Code ICD Code Onset Dates Problem Status W/U Status Risk Notes Problem Tinea unguium (464442007) Tinea unguium (B35.1) Active confirmed Problem 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 (968940291) 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 confirmed Problem 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 Problem Pressure injury of right buttock stage III (disorder) (74221979447739 ) Pressure ulcer of right buttock, stage 3 (L89.313) Active confirmed Problem Pressure injury of right heel stage IV (disorder) (62787259218415 ) Pressure ulcer of right heel, stage 4 (L89.614) Active confirmed Plan Of Treatment No Information Insurance Providers Payer Name Payer Address Payer Phone Subscriber Number Group Number Insured Name Patient Relationship to Insured Coverage Start Date Coverage End Date [employer] [address] (Government Programs) [address] [address] [place], [place] [id number] Ren Ramirez Self - patient is the insured 7 [facility] Government Services/Med icare [address] [facility] [address] [id number] Ren Ramirez Self - patient is the insured 3
[2025-03-16 21:48] LABS: Lactate* 1.5 mmol/L (0.5-1.9)
[2025-03-16 21:53] LABS: Hematocrit 38.9 % (37.0-53.0); Hemoglobin* 11.7 gm/dL (13.5-17.5); Immature Granulocytes Abs Auto 0.00 K/uL (0.00-0.30); Immature Granulocytes Pct Auto 0.4 %; Lymphocytes Absolute Auto 1.50 K/uL (0.90-2.90); Mean Corpuscular HGB Conc 30 gm/dL (32-36); Mean Corpuscular Hemoglobin 25 pg (26-34); Mean Corpuscular Volume 84 fL (80-100); RDW Coefficient of Variation % 17.7 % (11.5-15.5); Red Blood Count 4.61 m/uL (4.30-5.90); Slide Review Reflex No; Troponin, Point-of-Care* 0.01 ng/ml (0.01-0.04); White Blood Count* 11.28 K/uL (4.50-11.00)
[2025-03-16 21:58] LABS: Appearance Urine Clear (Clear)
[2025-03-16 22:06] LABS: Albumin* 3.2 g/dL (3.3-5.0); Chloride* 101 mmol/L (96-114)
[2025-03-16 22:07] LABS: Potassium* 3.6 mmol/L (3.6-5.1); Sodium* 138 mmol/L (135-149)
[2025-03-16 22:08] LABS: INR 1.52 (0.91-1.10); Prothrombin Time 19.3 Seconds
[2025-03-16 22:09] LABS: Blood Urea Nitrogen* 23 mg/dL (7-30); Creatinine* 1.0 mg/dL (0.5-1.5); Est. Creatinine Clearance* 76.28; Estimated Glomerular Filt Rate 78 ml/min
[2025-03-16 22:10] LABS: Alanine Aminotransferase* 23 U/L (4-50); Alkaline Phosphatase* 187 U/L (40-150); Anion Gap 6 mEq/L (7-15); Aspartate Amino Transferase* 21 U/L (12-35); Bilirubin Direct* 0.2 mg/dL (0.0-0.5); Bilirubin Total* 0.6 mg/dL (0.1-1.5); Calcium* 9.3 mg/dL (8.4-10.6); Carbon Dioxide* 31 mmol/L (20-32); Glucose* 172 mg/dL (60-115); Total Protein* 6.6 g/dL (6.0-8.3)
[2025-03-16 22:23] LABS: NT Pro B Type NatriureticPept* 1220 pg/mL (See Note)
[2025-03-16] MEDS: levoFLOXacin 500 MG/100 ML D5W 500 MG/100 ML PIGGYBACK 100 MG IVPB (23:41)
[2025-03-17] VITALS: RESP 12; O2SAT 93
--- OUTSIDE RECORDS SUMMARY | 2025-03-17 00:02 | XMS_ITS | Encounter Summary ---
Author Organization [facility] Address [address] [place] [address] Care Team Providers Care Machine Installer Name Role Phone Jeff Reyes M.D. Primary Care Provider [phone] Reason for Visit * Reason Onset Date Comments Other 03/05/2025 Call Back Encounter Details Date Type Department Care Team (Latest Contact Info) Description 03/05/2025 Clinical Communication Department of Oncology in [place], [place] [address] [address] Pablo Vo M.D. [address] [place] [address] Other (Call Back) Social History [...] daily living? Patient unable to answer 02/27/2025 [facility] Utilities Answer Date Recorded In the past 12 months has [employer], gas, oil, or water [employer] threatened to shut off services in your [...] Sex Assigned at Male 06/26/2018 4:20 PM CO TEACHER Legal Sex Male 3:33 AM CO TEACHER Gender Identity Not on file Sexual Orientation Not on file documented as of this encounter Plan of Treatment Upcoming Encounters Date Type Department Care Team (Latest Contact Info) Description 04/28/2025 1:00 PM CDT Comprehensive Visit Department of General Surgery in [place], [place] [address] [place] [address] Roland Benson D.O. [address] [place] [phone] Discharge Disposition: Home or Self Care documented as of this encounter Visit Diagnoses Not on filedocumented in this encounter Additional Health Concerns Assessment Noted Time PHQ-9 Depression Total Score: 10 018 11:00 AM CDT documented as of this encounter Care Teams Machine Installer Relationship Specialty Start Date End Date Jeff Reyes M.D. [address] [place] [address] PCP - General 03/14/24 documented as of this encounter
--- OUTSIDE RECORDS SUMMARY | 2025-03-17 00:02 | XMS_ITS | Encounter Summary ---
Author Organization [place] Address [address] 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 Gender Identity Not on file Sexual Orientation Not on file documented as of this encounter Plan of Treatment Upcoming Encounters Date Type Department Care Team (Late st Contact Info) Description 04/21/2025 2:00 PM CDT Office Visit [facility] [place] [address] [place] [address] Rl Evans MD [address] [place] [address], [facility] [address] [place], [place] [address] documented as of this encounter Visit Diagnoses Not on filedocumented in this encounter Care Teams Technology Engineer Relationship Specialty Start Date End Date Bijan Crawford [id number] [facility] [address] [place] [address] PCP - General Family Medicine 01/20/25 documented as of this encounter
--- OUTSIDE RECORDS SUMMARY | 2025-03-17 00:02 | XMS_ITS | Encounter Summary ---
Author Organization [facility] Address [address] [place] [address] Care Team Providers Care Supervisor Liquefaction Name Role Phone Jeff Reyes M.D. Primary Care Provider [phone] Encounter Details Date Type Department Care Team (Latest Contact Info) Description 08/07/2024 Intake [facility] Social History Tobacco Use Types Packs/Day Years Used Date Smoking Tobacco: Former Cigarettes Q uit: 1977 Passive Smoke Exposure: Never Alcohol Use Standard Drinks/Week Comments Not Currently 1 (1 standard drink = 0.6 oz pur e alcohol) [facility] Utilities Answer Date Recorded In the past 12 months has e [employer], gas, oil, or water [employer] threatened to shut off services in your [...] Sex Assigned at Male 06/26/2018 4:20 PM AUTO REPAIR TECHNICIAN Legal Sex Male 3:33 AM AUTO REPAIR TECHNICIAN Gender Identity Not on file Sexual Orientation Not on file documented as of this encounter Plan of Treatment Upcoming Encounters Date Type Department Care Team (Latest Contact Info) Description 04/28/2025 1:00 PM CDT Comprehensive Visit Department of General Surgery in [place], [place] [address] [place] [address] Roland Benson D.O. [address] [place] [address] Discharge Disposition: Home or Self Care documented as of this encounter Visit Diagnoses Not on filedocumented in this encounter Additional Health Concerns Infection Onset Date Last Indicated Resolved Time MDR GNB 10/24/2024 10/24/2024 10/27/2024 6:33 AM CDT Assessment Noted Time PHQ-9 Depression Total Score: 10 018 11:00 AM CDT documented as of this encounter Care Teams Supervisor Liquefaction Relationship Specialty Start Date End Date Jeff Reyes M.D. [address] [place] [address] PCP - General 03/14/24 documented as of this encounter
--- OUTSIDE RECORDS SUMMARY | 2025-03-17 00:02 | XMS_ITS | Encounter Summary ---
Author Organization [facility] Address [address] [place] [address] Care Team Providers Care Greens Tier Name Role Phone Jeff Reyes M.D. Primary Care Provider [phone] Encounter Details Date Type Department Care Team (Late st Contact Info) Description 02/21/2025 Clinical Communication Department of Oncology in [place], [place] [address] [place] [phone] Pablo Vo M.D. [address] [place] [phone] Social History Tobacco Use Types Packs/Day Years [...] daily living? Patient unable to answer 02/22/2025 [facility] Utilities Answer Date Recorded In the [...] Sex Assigned at Male 06/26/2018 4:20 PM ICEBOX WORKER Legal Sex Male 3:33 AM ICEBOX WORKER Gender Identity Not on file Sexual Orientation Not on file documented as of this encounter Plan of Treatment Upcoming Encounters Date Type Department Care Team (Latest Contact Info) Description 04/28/2025 1:00 PM CDT Comprehensive Visit Department of General Surgery in [place], [place] [address] [place] [address] Roland Benson D.O. [address] [place] [phone] Discharge Disposition: Home or Self Care documented as of this encounter Visit Diagnoses Not on filedocumented in this encounter Additional Health Concerns Infection Onset Date Last Indicated Resolved Time COVID19 Pending 02/22/2025 02/22/2025 02/22/2025 6 :40 AM CDT Assessment Noted Time PHQ-9 Depression Total Score: 10 018 11:00 AM CDT documented as of this encounter Care Teams Greens Tier Relationship Specialty Start Date End Date Jeff Reyes M.D. [address] [place] [phone] PCP - General 03/14/24 documented as of this encounter
--- OUTSIDE RECORDS SUMMARY | 2025-03-17 00:02 | XMS_ITS | Encounter Summary ---
Author Organization [facility] Address [facility] [place] [place] [address] Care Team Providers Care Associate Account Director Name Role Phone Ty Bijan Lauren Primary Care Provider [phone] Encounter Details Date Type Department Care Team (Late st Contact Info) Description 01/23/2025 Medical Correspondence [facility] Information Management [address] [facility] [facility] [address] [place] [address] Scan, Non-Provider GENEVIVE Social History Tobacco Use Types Packs/Day Years Used Date Smoking Tobacco: Never Assessed Sex and Gender Information Value Date Recorded Sex Assigned at Not on file Legal Sex Male 2:17 PM CCNP Gender Identity Not on file Sexual Orientation Not on file documented as of this encounter Plan of Treatment Upcoming Encounters Date Type Department Care Team (Late st Contact Info) Description 04/21/2025 2:00 PM CDT Office Visit [facility] [place] [address] [place] [address] Rl Evans MD [address] [place] [address], [facility] [address] [place] [address] documented as of this encounter Visit Diagnoses Not on filedocumented in this encounter Care Teams Associate Account Director Relationship Specialty Start Date End Date Bijan Crawford GENEVIVE [facility] [address] [place] [address] PCP - General Family Medicine 01/20/25 documented as of this encounter
--- OUTSIDE RECORDS SUMMARY | 2025-03-17 00:02 | XMS_ITS | Encounter Summary ---
Author Organization [facility] Address [address] [place] [address] Care Team Providers Care Instantizer Operator Name Role Phone Jeff Reyes M.D. Primary Care Provider [phone] Reason for Visit * Reason Onset Date Comments Nurse call back 01/31/2025 Encounter Details Date Type Department Care Team (Late st Contact Info) Description 01/31/2025 Clinical Communication Department of Oncology in [place], [place] [address] [place] [address] Pablo Vo M.D. [address] [place] [phone] Nurse call back Social History Tobacco Use [...] daily living? 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 [address] [place] [phone] Discharge Disposition: Home or Self Care documented as of this encounter Visit Diagnoses Not on filedocumented in this encounter Additional Health Concerns Infection Onset Date Last Indicated Resolved Time COVID19 Pending 02/22/2025 02/22/2025 02/22/2025 6 :40 AM CDT Assessment Noted Time PHQ-9 Depression Total Score: 10 018 11:00 AM CDT documented as of this encounter Care Teams Instantizer Operator Relationship Specialty Start Date End Date Jeff Reyes M.D. [address] [place] [address] PCP - General 03/14/24 documented as of this encounter
--- OUTSIDE RECORDS SUMMARY | 2025-03-17 00:03 | XMS_ITS | Clinical Summary ---
Author Organization [facility] Address [address] [place] [address] Care Team Providers Care Putaway Driver Name Role Phone Jeff Reyes M.D. Primary Care Provider [phone] Source Comments Patient records contain information from all sites at [facility]. For routine questions regarding patient records, call [phone] during business hours, M-F 8:00 AM - 5:00 PM Central Time. 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 Assessment & Plan (07/04/2018 2:56 PM SEWER PIPE SORTER): Continue I&O catheterization as needed Multiple Sclerosis 06/03/2003 Assessment & Plan (07/04/2018 3:32 PM SEWER PIPE SORTER): -Continue to follow with Neurology for further recommendations Resolved Problems Problem Noted Date Diagnosed Date Resolved Date Sprain Ankle Initial Right 11/08/2022 0 11/09/2022 Obesity Unspecified 03/21/2019 11/10/19 23 Urinary Tract Infection Site Not Specified 07/04/2018 11/09/2022 Overview (07/04/2018): Completed ciprofloxacin 500 mg b.i.d. for an antibiotic course of 14 days (last dose on 06/08/2018) Assessment & Plan (07/04/2018 3:31 PM SEWER PIPE SORTER): -Patient denies any urinary symptoms today on exam. 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 Continue aspirin 81 mg daily 2. [...] Clinical Communication Department of General Surgery in [place] [id number] [place] [address] Roland Benson D.O. Communication (Regarding appointment in April) 03/13/2025 2:40 PM CDT Telemedicine Department of Oncology in [place], [place] [address] [place] [address] Pablo Vo M.D. 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 Other (Call Back) 03/04/2025 8:29 AM CDT - 03/04/2025 11:59 PM CDT Hospital Encounter Department of Radiology in [place], [place] [address] [place] [address] Pablo Vo M.D. Embolus Pulmonary (HCC) Discharge Disposition: Home or Self Care 03/03/2025 Clinical Communication Department of Infectious Diseases in [address] [phone] Roz Carlos R.N. OPAT (Completion of therapy) 02/28/2025 Clinical Communication Department of Infectious Diseases in [address] [phone] Matilda Hammer R.N. Post Hospital Follow-up (IV antibiotics) 02/27/2025 9:45 AM CDT Ancillary Procedure Department of Oncology 02/26/2025 1:45 PM CDT Ancillary Procedure Department of Wound Ostomy 02/26/2025 1:40 PM CDT Ancillary Procedure Department of Wound Ostomy 02/26/2025 1:15 PM CDT Ancillary Procedure Department of Wound Ostomy 02/25/2025 Orders Only [facility] PCP [facility] Jeff Sullivan M.D. 02/24/2025 11:25 AM CDT Ancillary Procedure Department of Wound Ostomy 02/24/2025 11:20 AM CDT Ancillary Procedure Department of Wound Ostomy 02/24/2025 11:15 AM CDT Ancillary Procedure Department of Wound Ostomy 02/22/2025 12:35 AM CDT Ancillary Procedure Department of Nursing 02/22/2025 - 02/27/2025 12:16 PM CDT Hospital Encounter [facility], Fourth Floor [address] [place] [phone] Nneka Thomas M.B.B.S., M.D. Xu, Qiping, M.D. Byrd, David W, M.D. 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 02/04/2025 12:11 PM CDT - 02/04/2025 1:42 PM CDT Hospital Encounter Department of Radiology in [place], [place] [address] [place] [address] Anuel Nunn M.D. Cholecystitis Discharge Disposition: Home or Self Care 01/31/2025 Clinical Communication Department of Oncology in [place], [place] [address] [place] [address] Pablo Vo M.D. Nurse call back 01/23/2025 5:26 PM CDT - 01/24/2025 12:38 AM CDT Emergency [facility] Emergency Department [address] [place] [phone] Ollie Walters M.D. 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 12/17/2024 Orders Only [facility] SELF TEST [facility] [address] [place] [id number] Jeff Reyes M.D. Screening Cancer Colon from [...] daily living? Patient unable to answer 02/27/2025 [facility] Utilities Answer Date Recorded In [...] Sex Assigned at Male 06/26/2018 4:20 PM SEWER PIPE SORTER Legal Sex Male 3:33 AM SEWER PIPE SORTER Gender Identity Not on file Sexual Orientation [...] Comprehensive Visit Department of General Surgery in [place], [place] [address] [place] [address] Roland Benson D.O. [address] [place] [phone] Discharge Disposition: Home or Self Care Health [...] this topic Medical Devices Implanted Type Area Optical Instrument Assembly Supervisor Device Identifier Shelf Expiration Date Model / Serial / Lot Scrw St 24pthrd 8.0x105 - [id number] Implanted:Qty : 1 on 12/15/2022 by Jana Don M.D. at [facility] Hardware e.g. pins/screws/ rods Right: [employer]ur [employer] [id number] 024 / / Scrw Vthrd Fast 7.0x105 - [id number] Implanted:Qty : 2 on 12/15/2022 by Jana Don M.D. at [facility] Hardware e.g. pins/screws/ rods Right: [employer] [id number] [id number] / / Washr Flt 1.5x13 - [id number] Implanted:Qty : 4 on 12/15/2022 by Jana Don M.D. at [facility] Hardware e.g. pins/screws/ rods Right: Femur [...] POCT, B Routine 02/24/2025 5:07 PM CDT WY NEG PRESS WND THRPY <=50SCM Routine 02/24/2025 12:15 PM CDT Pressure Ulcer Of Unspecified Site Stage 4 (HCC) [place] NEG PRESS WND THRPY <=50SCM Routine 02/24/2025 [...] Hyperlipidemia On Treatment Atherosclerotic Heart Disease Of [place] Coronary Artery Without Angina Pectoris from Last [...] Generic Rals LAB POCT ORDERABLES-MANUAL Final Result [facility] [address] [place] [address], [place] MKTO [facility] in [place] [address] [place] [address] * Place midline catheter (single lumen) (02/27/2025 [...] NON RAD IMAGING PROCE DURES Final Result IIWV NA * (ABNORMAL) Comprehensive Metabolic Panel (02/27/2025 [...] Sung M.D. LAB BLOOD ADD-ON Final Result [facility] [place] [address], [facility] MKTO [facility] in [place] [address] [place] [address] * Wound Vac (02/26/2025 2:08 PM CDT) [...] NON RAD IMAGING PROCE DURES Final Result IIWV NA * (ABNORMAL) CBC with Differential, Blood [...] Chand M.D. LAB BLOOD ADD-ON Final Result [facility] [place] [address], [facility] MKTO [facility] [place] [address] * (ABNORMAL) Hepatic Function Panel (02/25/2025 7:59 [...] BLOOD ADD-ON Final Result Performing Organization Address City/[facility]/ZIP Co de Phone Number [facility] [address] [place] [address], [facility] MKTO [facility] in [place] [address] [place] [address] * (ABNORMAL) Basic Metabolic Panel (02/25/2025 7:59 AM CDT) Only the most recent of5 resultswithin the time period is included. Pathologist [facility] Potassium, P 3.8 3.6 - 5.2 mmol/L [...] Chand M.D. LAB BLOOD ADD-ON Final Result [facility] [address] [place] [address], [facility] in [place] [address] [place] [address] * WY NEG PRESS WND THRPY <=50SCM (02/24/2025 12:15 [...] PROCEDURE/MINOR SURGICAL ORDERAB LES Final Result * [place] NEG PRESS WND THRPY <=50SCM (02/24/2025 12:13 [...] - 8.0 mg/dL 02/23/2025 8:52 AM CDT [facility] Blood (Blood, Venous) 02/23/2025 6:17 AM CDT 02/23/2025 8:40 AM CDT us Nelson Chand M.D. LAB BLOOD ADD-ON Final Result [facility] [address] [place] [address], [facility] [place] [address] * IR Percutaneous Cholecystostomy Tube Check (02/22/2025 [...] medications. Patient education provided by a care hospitality team member. Patient's family member was ready to learn with no apparent learning barriers were identified. Post-procedure care explained; patient's family member expressed understanding of the content. PROCEDURE DETAILS: Sedation: None. Sedation time: Not applicable. Estimated Blood Loss: None. TECHNIQUE: The indwelling 14 Ethiopian drainage catheter was injected with contrast, and [...] current medications. Patient education provided by acare hospitality team member. Patient's family member was ready to learn with noapparent learning barriers were identified. Post-procedure care explained;patient's family member expressed understanding of the content. PROCEDURE DETAILS: Sedation: None. Sedation time: Not applicable. Estimated Blood Loss: None. TECHNIQUE: The indwelling 14 Ethiopian drainage catheter was injected with contrast, andmultiple [...] medications. Patient education provided by a care hospitality team member. Patient's family member was ready [...] current medications. Patient education provided by acare hospitality team member. Patient's family member was ready [...] MICROBIOLOGY - GENERAL ORDER TOMY Final Result [facility] [address] [place] [address], [facility] MKTO [facility] in [place] [address] [place] [address] * Crystal Identification, Body Fluid (02/22/2025 12:30 [...] FLUIDS AND STOOLS ORDER TOMY Final Result [facility] [address] [place] [address], [facility] MKTO [facility] in [place] [address] [place] [address] * Cell Count and Differential, Body Fluid (02/22/2025 12:30 PM CDT) Fluid Type RightWrist 02/22/2025 2:18 PM CDT MKTO Gross Appearance Slightly Cloudy 02/22/2025 2:18 PM CDT MKTO Total Nucleated Cells 150 /mcL 02/22/2025 2:18 PM CDT MKTO Comment: ----REFERENCE VALUE---- Synovial: <150 Peritoneal: <500 Pleural: <500 Pericardial: <500 ----ADDITIONAL INFORMATION---- This test has been modified from the data warehousing specialist's instructions. Its performance characteristics were determined by [facility] in a manner consistent with CLIA requirements. [...] Edited Result - Final Performing Organization Address City/[facility]/ZIP Co de Phone Number [facility] [address] [place] [address], [place] [address] * Gram Stain (02/22/2025 12:30 PM CDT) Gram Stain No organisms seen. White blood cells present. Stain performed on concentrated cytospin preparation. 02/22/2025 2:13 PM CDT [facility] Fluid (Synovial Fluid, Right Wrist) 02/22/2025 12:30 PM CDT 02/22/2025 12:48 PM CDT Comment:Specimen Source Site : Fluid us Nelson Chand M.D. LAB MICROBIOLOGY - GENERAL ORDER TOMY Final Result Performing Organization Address [facility] Co de Phone Number [facility] [address] [place] [address], [place] [address] * Bacterial Culture, Anaerobic + Susceptibility (02/22/2025 12:30 PM CDT) Bacterial Culture, Anaerobic No growth after 7 days of incubation. 03/01/2025 7:49 AM CDT [facility] Fluid (Synovial Fluid, Right Wrist) 02/22/2025 12:30 PM CDT 02/22/2025 12:48 PM CDT Comment:Specimen Source Site : Fluid us Nelson Chand M.D. LAB MICROBIOLOGY - GENERAL ORDER TOMY Final Result Performing Organization Address City/[facility]/ZIP Co de Phone Number [facility] [address] [place] [address], [facility] [address] [place] [address] * ECG 12 Lead (02/22/2025 6:47 AM CDT) Only the most recent of2 resultswithin the time period is included. Ventricular Rate ECG/Min 98 BPM MUSE WY Interval 206 ms MUSE QRSD Interval 90 ms MUSE QT Interval 316 ms MUSE QTC Interval 403 ms MUSE P [place] 68 degrees MUSE R [place] 11 degrees MUSE T Wave [place] 69 degrees MUSE 02/22/2025 6:47 AM CDT [...] test using the Xpert Xpress SARS-CoV-2/Flu/RSV assay ([employer] performed on the [employer] systems has received Emergency Use Authorization (EUA) by the U.S. Food and Drug Administration. Performance characteristics were verified by [facility] in a manner consistent with CLIA requirements. Fact sheets for this Emergency Use Authorization (EUA) assay can be found at the following links: For Healthcare Providers: https://www.fda.gov/media/685688/download For Patients: https://www.fda.gov/media/323722/download Specimen Source Swab, Nasopharynx 02/22/2025 5:08 AM CDT MKTO Swab (Nasopharynx) 02/22/2025 5:02 AM CDT 02/22/2025 5:08 AM CDT Nneka Yañez M.D. LAB MICROBIOLOG Y - GENERAL ORDERABLES Final Result [facility] [address] [place] [address] [place] [address] * (ABNORMAL) Urinalysis, Dipstick (02/22/2025 5:02 AM [...] 8.0 02/22/2025 5:17 AM CDT MKTO Specific [place] >1.035(A) 1.001 - 1.035 02/22/2025 5:17 AM CDT MKTO Urobilinogen 1.0 0.2 - 1.0 mg/dL 02/22/2025 5:17 AM CDT MKTO Urine (Urine, Midstream) 02/22/2025 5:02 AM CDT 02/22/2025 5:17 AM CDT us Nneka Yañez M.D. LAB URINE ORDER TOMY Final Result Performing Organization Address [facility] Co de Phone Number [facility] [address] [place] [address] * Bacterial Culture, Aerobic + Susceptibility, Urine (02/22/2025 5:02 AM CDT) Urine Culture No growth after 1 day of incubation. 02/23/2025 8:47 AM CDT MKTO Urine (Urine, Indwelling Catheter) 02/22/2025 5:02 AM CDT 02/22/2025 5:11 AM CDT Comment:Specimen Source Site : Urine us Nneka Yañez M.D. LAB MICROBIOLOG Y - GENERAL ORDERABLES Final Result Performing Organization Address [facility]/ZIP Co de Phone Number [facility] [address] [place] [address], [place] [address] * DX Knee Right 4+ Views (02/22/2025 [...] Chondrocalcinosis. Small suprapatellar spur. Nneka RaderBAmparoSShankar Christensen [facility]AGING PROCEDURES Final Result * DX [...] although to a much lesser degree than [id number]. Nneka SuarezBAmparoB.SShankar Christensen IMG DIAGNOSTIC IMAGING PROCEDURES [...] GENERAL ORDERABLES Final Result Performing Organization Address City/[facility]/ZIP Co de Phone Number [facility] [address] [place] [address] * Lactate for Sepsis with Reflex (02/22/2025 4:28 AM CDT) Only the most recent of2 resultswithin the time period is included. Pathologist [facility] Lactate, B 1.9 0.5 - 2.2 mmol/L 02/22/2025 5:01 AM CDT [facility] Blood (Blood, Venous) 02/22/2025 4:28 AM CDT 02/22/2025 4:48 AM CDT us Nneka Yañez M.D. LAB BLOOD NON A DD-ON Final Result [facility] [address] [place] [address] * Buttock/Sacrum-Nursing Image Exam (02/22/2025 12:35 AM [...] PROCE DURES Final Result Performing Organization Address [facility] de Phone Number IIMS NA * CT chest abdomen pelv w con-Outside CT Body (02/21/2025 1:15 PM CDT) Narrative [facility] - 02/21/2025 6:28 PM CDT This [...] PROCEDURES Final R esult Performing Organization Address [facility] de Phone Number IIMS NA * [...] male with history of cholecystitis requiring 14 Ethiopian cholecystostomy catheter, routine 3 month exchange COMPARISON: [...] medications. Patient education provided by a care hospitality team member. Patient was ready to learn with no apparent learning barriers were identified. Post-procedure care explained; patient expressed understanding of the content. PROCEDURE DETAILS: Sedation: None. Sedation time: Not applicable. Estimated Blood Loss: Less than 10 mL. TECHNIQUE: Imaging guidance for catheter exchange: Fluoroscopy with permanent image storage Access side: Right lateral abdomen intercostal transhepatic Catheter: 14 Ethiopian 25 cm multipurpose pigtail drain Technique: The indwelling catheter was injected with contrast. A guidewire was inserted through the catheter, and the catheter was exchanged for a new 14 Ethiopian catheter. Contrast was injected confirming the location [...] medications. Patient education provided by a care hospitality team member. Patient was ready to learn withno apparent learning barriers were identified. Post-procedure careexplained; patient expressed understanding of the content. PROCEDURE DETAILS: Sedation: None. Sedation time: Not applicable. Estimated Blood Loss: Less than 10 mL. TECHNIQUE: Imaging guidance for catheter exchange: Fluoroscopy with permanent imagestorage Access side: Right lateral abdomen intercostal transhepatic Catheter: 14 Ethiopian 25 cm multipurpose pigtail drain Technique: The indwelling catheter was injected with contrast. A guidewirewas inserted through the catheter, and the catheter was exchanged for anew 14 Ethiopian catheter. Contrast was injected confirming the location [...] M.D. LAB URINE ORDERABLES Fin al Result [facility] [address] [place] [address], [facility] [address] [place] [address] * Microscopic Automated (01/23/2025 8:37 PM CDT) [facility] Microscopy Normal 01/23/2025 8:57 PM CDT DTL RBC <3 <3 /hpf 01/23/2025 8:57 PM CDT DTL WBC 1-3 /hpf 01/23/2025 8:57 PM CDT DTL Comment: ----REFERENCE VALUE---- <4 (Males) <11 (Females) Casts, Hyaline 11-20 /lpf 01/23/2025 8:57 PM CDT DTL Urine 01/23/2025 8:37 PM CDT 01/23/2025 8:49 PM CDT Chung Mehta M.D. LAB URINE ORDERABLES Fin al Result [facility] [address] [place], [place] [phone] [place] [address] [address] [place] [address] * pH, Urine (01/23/2025 8:37 PM CDT) [facility] pH, U 5.4 4.5 - 8.0 01/23/2025 9:0 3 PM CDT DTL Urine 01/23/2025 8:37 PM CDT 01/23/2025 8:49 PM CDT Chung Mehta M.D. LAB URINE ORDERABLES Fin al Result [facility] [address] [place] [address] * Osmolality, Urine (01/23/2025 8:37 PM CDT) [facility] Osmolality, U 409 150 - 1150 mOsm/kg 01/23/2025 9:03 PM CDT DTL Urine 01/23/2025 8:37 PM CDT 01/23/2025 8:49 PM CDT Chung Mehta M.D. LAB URINE ORDERABLES Fin al Result Performing Organization Address City/[facility]/ZIP Co de Phone Number [facility] [address] [place] [address], [facility] [address] [place] [address] * Urinalysis, with Microscopic: Urine, Catheter (01/23/2025 [...] ORDERABLES Fin al Result Performing Organization Address City/[facility]/ZIP Co de Phone Number [facility] [address] [place] [address], [place] [facility] [address] [place] [address] * (ABNORMAL) Sedimentation Rate (01/23/2025 8:36 PM CDT) Sedimentation Rate, B 109(H) 3 - 28 mm/h 01/23/2025 9:29 PM CDT DTL Blood (Blood, Venous) 01/23/2025 8:36 PM CDT 01/23/2025 8:47 PM CDT Chung Mehta M.D. LAB BLOOD ADD-ON Final R esult Performing Organization Address City/[facility]/ZIP Co de Phone Number [facility] [address] [place] [address], [facility] [address] [place] [address] * (ABNORMAL) CRP (C-Reactive Protein) (01/23/2025 8:36 PM CDT) Pathologist [facility] C-Reactive Protein (CRP), S 124.8(H) <5.0 mg/L 01/23/2025 9:28 PM CDT DTL Blood (Blood, Venous) 01/23/2025 8:36 PM CDT 01/23/2025 9:01 PM CDT Chung Mehta M.D. LAB BLOOD ADD-ON Final R esult Performing Organization Address City/[facility] Co de Phone Number [facility] [address] [place] [address], [facility] [address] [place] [address] * CT Abdomen Pelvis with IV Contrast [...] * Lactate, B (01/23/2025 6:55 PM CDT) [facility] Lactate, B 1.2 0.5 - 2.2 mmol/L 01/23/2025 7:05 PM CDT [facility] Blood (Blood, Venous) 01/23/2025 6:55 PM CDT 01/23/2025 7:02 PM CDT Ollie Walters M.D. LAB BLOOD NON ADD-ON Final Res ult [facility] [address] [place] [address], [facility] [address] [place] [address] * (ABNORMAL) CBC without Differential (01/23/2025 6:55 PM CDT) [facility] Hemoglobin 10.6(L) 13.2 - 16.6 g/dL [...] BLOOD ADD-ON Final Result Performing Organization Address City/[facility]/ZIP Co de Phone Number [address] [place] [address] * Lipase (01/23/2025 6:55 PM CDT) Lipase, S 16 13 - 60 U/L 01/23/2025 7: 42 PM CDT DTL Blood (Blood, Venous) 01/23/2025 6:55 PM CDT 01/23/2025 7:25 PM CDT Ollie Walters M.D. LAB BLOOD ADD-ON Final Result Performing Organization Address [facility] [place] [address], [facility] [place] [address] * (ABNORMAL) Lipid Panel (11/05/2024 9:32 AM [...] BLOOD ADD-ON Final Result Performing Organization Address City/State/[facility] de Phone Number [facility] [address] [place] [address], [facility] OWAT [facility] [place] [address] [place] [address] from Last 3 Months or Most Recently Relevant to Health Maintenance Insurance MEDICA Advance Directives For more information, please contact: [phone] Documents on File Type Date Recorded Patient Medical Care Manager Expl anation Advance Directives 08/08/2024 6:58 [...] 5:41 PM 12/15/2022 11:01 AM Care Teams Putaway Driver Relationship Specialty Start Date End Date Jeff [place] [id number] PCP - General 03/14/24
--- OUTSIDE RECORDS SUMMARY | 2025-03-17 00:04 | XMS_ITS | Encounter Summary ---
Author Organization [place] Address Formerly [facility]0 [facility] 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 Gender Identity Not on file Sexual Orientation Not on file documented as of this encounter Plan of Treatment Upcoming Encounters Date Type Department Care Team (Late st Contact Info) Description 04/21/2025 2:00 PM CDT Office Visit [facility] Infectious Disease Clinic [address] [address] Rl Evans MD [address] [facility], [facility] [address] [place] [address] documented as of this encounter Visit Diagnoses Not on filedocumented in this encounter Care Teams Cheese Pancake Roller Relationship Specialty Start Date End Date Bijan Crawford [place] [id number] [facility] [address] [place] [address] PCP - General Family Medicine 01/20/25 documented as of this encounter
--- OUTSIDE RECORDS SUMMARY | 2025-03-17 00:04 | XMS_ITS | Clinical Summary ---
Author Organization [place] Address [facility] [place] [address] Care Team Providers Care Machine Assembler Supervisor Name Role Phone Bijan Crawford Primary Care Provider [phone] Rl Evans MD Unavailable [phone] Allergies Active Allergy Reactions Criticality Noted Date [...] Type Department Care Team Description 03/10/2025 Telephone [facility] Infectious Disease Clinic [address] [phone] Rl Evans MD conversation (Dr wants to discuss patient with Dr Evans) 02/25/2025 Documentation Only [facility] [address] [facility] [address] [place] [address] Aida Moya LSW Advance Care Planning 02/19/2025 3:00 PM CDT Office Visit [facility] Infectious Disease [address] [facility] [address] [place] [phone] Rl Evans MD Pressure injury of left buttock, stage 4 (H) 02/19/2025 Medical Correspondence [facility] [address] [place] [address] Sunshine, Non-Provider DR PORRAS 02/19/2025 Travel 02/12/2025 Medical Correspondence [facility] [address] [place] [address] Scan, Non-Provider [facility] 01/23/2025 Medical Correspondence [facility] Information Management [address] [facility] [address] [place] [address] Scan, Non-Provider GENEVIVE 01/16/2025 Transcribe Orders GENERIC EXTERNAL DATA DEPARTMENT Stella Mejia MD Pressure ulcer (Primary Dx) from Last 3 Months Social History Tobacco Use Types Packs/Day Years Used Date Smoking Tobacco: Former Cigarettes Q uit: 07/24/1971 Smokeless Tobacco: Never Tobacco Cessation:Counseling Given: Not Answered Sex and Gender Information Value Date Recorded Sex Assigned at Not on file 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 Diseases Diag. Lab [address] [facility] [place] [address], [facility] * Lab Result - HIM Scan (01/05/2025 12:00 AM CDT) 01/05/2025 us Provider Outside NON-BEAKER LAB TESTING Final Result * CT Imaging - HIM Scan (2025 12:00 AM CDT) Anatomical Region Laterality Modality Computed Tomogra phy 2025 us Provider Outside IM CT ORDERABLES Final Result from Last 3 Months Insurance [employer] Advance Directives For more information, please contact: [phone] Documents on File Type Date Recorded Patient Production Engineer Track Expl anation Advance Directives and Livin g Will 02/25/2025 POLST 01/26/2023 Care Teams Machine Assembler Supervisor Relationship Specialty Start Date End Date Bijan Crawford [address] [place] [address] PCP - General Family Medicine 01/20/25 Rl Evans MD [address] [place] [address], [facility] [address] [place], [place] [id number] Assigned Infectious Disease Provider 03/15/25
--- NOTE | 2025-03-17 00:05 | ED.AMS ---
HPI - Altered Mental Status General Date Seen: 03/17/25 Chief Complaint: Altered Mental Status Stated Complaint: altered mental state Time Seen by Provider: 03/16/25 21:15 Source: patient, EMS, RN notes reviewed and old records reviewed Mode of arrival: EMS Limitations: no limitations History of Present Illness HPI narrative: Patient is a 75-year-old gentleman who is medically complex, he presents by EMS from [facility], today they were worried as he seemed to be more out of it with altered mental status which in the past is necessitated hospitalization. Was sent here for an assessment. 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 He has a history of MS, which makes him non mobile. He is being treated at the [facility], he has been seen multiple times in the ER. He has had is chronic ulcers D bride in the OR and he has been hospitalized for IV antibiotics. He is generally followed by [facility], this when he gets more sick, he was last seen here on February 21 of this year, and transfer to [facility]. Here today he is alert oriented knows person place and time. Speaking to me normally, when I asked him why he is here he says he really does not know. He does have some pain on his bottom in, but when I asked him if it is new or old he says is old. Denies shortness of breath denies chest pain, denies any other symptoms which is really different from his most recent hospitalization I can glean from the chart. Clearly from my examination he does not have altered mental status. He was given nothing in route and brought here. Related Data Home Medications ?Medication ?Instructions ?Recorded ?Confirmed calcium carbonate (Zachary-Gest 400 mg PO BID PRN 08/07/24 02/21/25 Antacid) cholecalciferol (vitamin D3) 25 25 mcg PO DAILY 08/07/24 02/21/25 mcg (1,000 unit) tablet (Vitamin D3) furosemide 40 mg tablet 40 mg PO DAILY 08/07/24 02/21/25 lisinopril 40 mg tablet 40 mg PO DAILY 08/07/24 02/21/25 metoprolol succinate 100 mg 100 mg PO DAILY 08/07/24 02/21/25 tablet,extended release 24 hr pantoprazole 40 mg tablet,delayed 40 mg PO BID 08/07/24 02/21/25 release polyethylene glycol 3350 17 17 g PO DAILY 08/07/24 02/21/25 gram/dose oral powder apixaban 5 mg tablet (Eliquis) 5 mg PO BID 11/16/24 02/21/25 atorvastatin 80 mg tablet 80 mg PO HS 11/16/24 02/21/25 bacitracin 500 unit/gram topical 1 applic topical BID 11/16/24 02/21/25 ointment baclofen 10 mg tablet 10 mg PO BID 11/16/24 02/21/25 latanoprost 0.005 % eye drops 1 drp ophthalmic (eye) HS 11/16/24 02/21/25 sennosides 8.6 mg-docusate sodium 2 tab-cap PO DAILY PRN 11/16/24 02/21/25 50 mg tablet (Senna Plus) carbamide peroxide 6.5 % ear drops 5 drp otic (ear) Q7D PRN 11/17/24 02/21/25 (Ear Wax Removal Kit) clotrimazole 1 % topical cream 1 applic topical BID 12/12/24 02/21/25 acetic acid 0.25 % irrigation See Rx Instructions .Route BID 01/04/25 02/21/25 solution ferrous sulfate 325 mg (65 mg 325 mg PO Q48H 01/04/25 02/21/25 iron) tablet metformin 500 mg tablet,extended 1,000 mg PO QPM 01/04/25 02/21/25 release 24 hr oxycodone 5 mg tablet 5 mg PO Q6H PRN 01/04/25 02/21/25 sennosides 8.6 mg tablet (senna) 17.2 mg PO DAILY PRN 01/28/25 02/21/25 ondansetron HCl 4 mg tablet 4 mg PO BID 02/21/25 02/21/25 Previous Rx's ?Medication ?Instructions ?Recorded allopurinol 100 mg tablet 100 mg PO DAILY #30 tabs 11/19/24 Allergies Allergy/AdvReac Type Severity Reaction Status Date / Time Haemophilus B polysaccharide Allergy Unknown Verified 03/16/25 22:02 conj w vancomycin Allergy Unknown Verified 03/16/25 22:02 Review of Systems Status of ROS: Reports: 10 or more systems reviewed and unremarkable except as noted in History and below [facility] Medical History Chronic anticoagulation ?Z79.01 - ad terminal makeup operator (current) use of anticoagulants (ICD-10) History of pulmonary embolism ?Z86.711 - Personal history of pulmonary embolism (ICD-10) Paraplegia ?G82.20 - Paraplegia, unspecified (ICD-10) Lymphedema ?I89.0 - Lymphedema, not elsewhere classified (ICD-10) Diabetes mellitus ?E11.9 - Type 2 diabetes mellitus without complications (ICD-10) Stage III pressure ulcer of sacral region ?L89.153 - Pressure ulcer of sacral region, stage 3 (ICD-10) Stage III pressure ulcer of buttock ?L89.303 - Pressure ulcer of unspecified buttock, stage 3 (ICD-10) Pressure ulcer of coccygeal region, stage 1 ?L89.151 - Pressure ulcer of sacral region, stage 1 (ICD-10) Neurogenic bowel ?K59.2 - Neurogenic bowel, not elsewhere classified (ICD-10) Hyperuricemia ?E79.0 - Hyperuricemia without signs of inflammatory arthritis and tophaceous disease (ICD-10) Hyperlipidemia ?E78.5 - Hyperlipidemia, unspecified (ICD-10) Hypertension ?I10 - Essential (primary) hypertension (ICD-10) Coronary artery disease ?I25.10 - Atherosclerotic heart disease of [place] coronary artery without angina pectoris (ICD-10) Fracture, intertrochanteric, right femur ?S72.141A - Displaced intertrochanteric fracture of right femur, initial encounter for closed fracture (ICD-10) Sleep apnea ?G47.30 - Sleep apnea, unspecified (ICD-10) Eason catheter in place ?Z97.8 - Presence of other specified devices (ICD-10) Neurogenic bladder ?N31.9 - Neuromuscular dysfunction of bladder, unspecified (ICD-10) Obesity ?E66.9 - Obesity, unspecified (ICD-10) Multiple sclerosis ?G35 - Multiple sclerosis (ICD-10) Surgical History H/O insertion of cholecystostomy tube ?Z98.890 - Other specified postprocedural states (ICD-10) Family History Father Coronary artery disease High blood pressure High cholesterol Sleep apnea Social History Narrative: Resident of [facility]. Daughter Malika is healthcare power of employment law attorney. Code status is DNR. Remote history of smoking What is your current living situation?: I presently have a place to live Problems where you live: no known problems Problems where you live details: NA In the past 12 months, utilities in danger of being shut off: no In past 12 months, lack of transportation kept you from medical appts, meetings, work, or getting things needed for daily living: no In the past 12 mos, have been you worried that your food would run out before you had money to buy more?: never true In the past 12 mos, the food you bought just didn't last and you didn't have money to buy more?: never true Highest level of school completed/degree received: 12th grade, no diploma Smoking Status: Former smoker What tobacco products do you use: cigarettes Smoking quit date/years: >15 years ago Do you use any of these nicotine containing products: None Second hand tobacco smoke exposure: No How often do you have a drink containing alcohol: never How often do you have six or more drinks on one occasion: Never AUDIT-C Alcohol total score: 0 Non-prescribed substance use: denies use Caffeine: Yes (tea and coffee) How often does anyone, including family, friends and others, physically hurt you: unable to answer How often does anyone, including family, friends and others, insult or talk down to you: unable to answer How often does anyone, including family, friends and others, threaten you with harm: unable to answer How often does anyone, including family, friends and others, scream or curse at you: unable to answer service: No Exam Narrative: Exam Narrative: On examination in room 6 he is in no apparent distress he is pleasant alert he has entirely normal vital signs, he is nontoxic speaking to me in a bit of quiet voice, but nevertheless speaking to me normally pupils equal round reactive to light there is no scleral icterus redness is TMs are normal bilaterally his oropharynx is normal. His chest is good air entry bilateral with no wheezing crackles noted his heart sounds are normal. He is draining brownish fluid out of his cholecystostomy tube. He is draining clear urine out of his indwelling urinary catheter. His abdomen is soft there is no guarding no organomegaly his bowel sounds are normal. There is no tenderness to palpation. With the help of 2 nurses we log-rolled him over, has a wound VAC, and is taking out some clearish red tinged fluid. There appears to be no redness around the wound VAC, he also has another ulcer on his left buttock, deeper. Packed with wet to dry this is removed, it actually looks pretty good there is not a lot of lying redness. Unfortunately he did have a bowel movement in my nurses have to clean him up. His extremities all looked normal, with no evidence of any redness swelling, cellulitis or any other or injury. Const: Vital Signs, click to edit/add: Vital Signs - 24 hr 03/16/25 21:08 03/16/25 22:00 03/16/25 22:54 Temperature 97.0 F L 98.2 F 98.2 F Pulse Rate [Pulse Oximeter] 66 65 69 Respiratory Rate 18 18 18 Blood Pressure [Ri ght Upper Arm] 142/63 H 142/63 H 131/69 Pulse Oximetry 94 94 94 Oxygen Delivery Me thod Room Air Room Air Room Air 03/16/25 22:56 Temperature 98.2 F Pulse Rate [Pulse Oximeter] 69 Respiratory Rate 18 Blood Pressure [Ri ght Upper Arm] 131/69 Pulse Oximetry 94 Oxygen Delivery Me thod Room Air Course Course ED Course: Clearly I am not seeing altered mental status in clearly I am not seeing any signs of sepsis here with a normal lactate and everything else he does have a good reason to become septic however with both his ulcers an indwelling lines. I think he may have a bit of a UTI, and I am not against at the present time a giving him some IV Levaquin and starting him on oral Levaquin but I do think he can go back to the halfway at this point. In discussion with him he is in agreement he wants to go back. Clearly he is medically complex and could worsen, and they will have to be vigilant to watching this. Vital Signs Vital signs: Initial Vital Signs Temperature 97.0 F L 03/16/25 21:08 Temperature Source Temporal Artery Scan 03/16/25 21:08 Pulse Rate 66 03/16/25 21:08 Pulse Rhythm Regular 03/16/25 21:08 Respiratory Rate 18 03/16/25 21:08 Blood Pressure 142/63 H 03/16/25 21:08 Blood Pressure Mean 89 03/16/25 21:08 Blood Pressure Position Semi-Fowlers 03/16/25 21:08 Pulse Oximetry 94 03/16/25 21:08 Oxygen Delivery Method Room Air 03/16/25 21:08 Vital Signs Temperature 97.0 F L 03/16/25 21:08 Pulse Rate 66 03/16/25 21:08 Respiratory Rate 18 03/16/25 21:08 Blood Pressure 142/63 H 03/16/25 21:08 Pulse Oximetry 94 03/16/25 21:08 Oxygen Delivery Method Room Air 03/16/25 21:08 Temperature 98.2 F 03/16/25 22:56 Pulse Rate 69 03/16/25 22:56 Respiratory Rate 18 03/16/25 22:56 Blood Pressure 131/69 03/16/25 22:56 Pulse Oximetry 94 03/16/25 22:56 Oxygen Delivery Method Room Air 03/16/25 22:56 Medications Administered Medications: Generic Name Dose Route Start Last Admin Trade Name Freq PRN Reason Stop Dose Admin Levofloxacin/Dextrose 500 mg in 100 mls @ 100 mls/hr 03/16/25 23:34 03/16/25 23:41 Levofloxacin 500 Mg/100 Ml D5w IVPB 100 mls/hr Q24H BERONICA Administration MDM - Altered Mental Status MDM Narrative Medical decision making narrative: Multiple differential diagnoses were considered for altered mental status. The life-threatening differential diagnosis considered include: Meningitis/encephalitis, bacteremia, subdural, cerebrovascular accident, SAH, and hypertensive encephalopathy. Other differential diagnosis included include medication effect, hypoxia, hypoglycemia, hypercalcemia, hypo or hypernatremia, hypothyroidism, hepatic encephalopathy, carbon monoxide poisoning, UTI, pneumonia, depression, seizure, as well as other etiologies. Medical Records Attestation: I reviewed the patient's medical records. Lab Data Attestation: I reviewed the patient's lab results. Labs: Lab Results 03/16/25 03/16/25 Range/Units :25 21:45 WBC 11.28 H (4.50-11.00) K/uL RBC 4.61 (4.30-5.90) m/uL Hgb 11.7 L (13.5-17.5) gm/dL Hct 38.9 (37.0-53.0) % MCV 84 (80-100) fL MCH 25 L (26-34) pg MCHC 30 L (32-36) gm/dL RDW Coeff of Rey 17.7 H (11.5-15.5) % Plt Count 244 (140-440) K/uL Neut % (Auto) 76.8 H (42.0-72.0) % Lymph % (Auto) 13.4 L (20-44) % Boundary % (Auto) 8.0 (0.0-11.0) % Eos % (Auto) 1.3 (0.0-7.0) % Baso % (Auto) 0.1 (0.0-3.0) % Neut # (Auto) 8.70 H (1.7-7.0) K/uL Lymph # (Auto) 1.50 (0.90-2.90) K/uL Boundary # (Auto) 0.90 (0.00-0.90) K/UL Eos # (Auto) 0.10 (0.00-0.50) K/uL Baso # (Auto) 0.00 (0.00-0.30) K/uL Abs Immat Gran (auto) 0.00 (0.00-0.30) K/uL Imm/Tot Granulo (auto) 0.4 % INR 1.52 H (0.91-1.10) APTT 36 H (23-33) Seconds Sodium 138 (135-149) mmol/L Potassium 3.6 (3.6-5.1) mmol/L Chloride 101 (96-114) mmol/L Carbon Dioxide 31 (20-32) mmol/L Anion Gap 6 L (7-15) mEq/L BUN 23 (7-30) mg/dL Creatinine 1.0 (0.5-1.5) mg/dL Estimated Creat Clear 76.28 Estimated GFR 78 ml/min Glucose 172 H (60-115) mg/dL Lactate 1.5 (0.5-1.9) mmol/L Calcium 9.3 (8.4-10.6) mg/dL Total Bilirubin 0.6 (0.1-1.5) mg/dL Direct Bilirubin 0.2 (0.0-0.5) mg/dL AST 21 (12-35) U/L ALT 23 (4-50) U/L Alkaline Phosphatase 187 H (40-150) U/L C-Reactive Protein 18.9 H (0.5-1.0) mg/dL NT-Pro-B Natriuret Pep 1220 H (See Note) pg/mL Total Protein 6.6 (6.0-8.3) g/dL Albumin 3.2 L (3.3-5.0) g/dL Lipase 36 (23-300) U/L Urine Color Yellow (Yellow) Urine Appearance Clear (Clear) Urine pH 7.0 (5.0-8.5) Ur Specific [place] 1.015 (1.000-1.030) Urine Protein 1+ A (Negative) Urine Glucose (UA) Negative (Negative) Urine Ketones Negative (Negative) Urine Blood 1+ A (Negative) Urine Nitrite Positive A (Negative) Urine Bilirubin Negative (Negative) Urine Urobilinogen 0.2 (0.2-1.0) Ur Leukocyte Esterase 3+ A (Negative) Urine RBC 5-10 A (0-2) Urine WBC 10-25 A (0-5) Ur Squamous Epith Cells Few (None-Few) Urine Bacteria Many A (None) POC Troponin I 0.01 (0.01-0.04) ng/ml I reviewed the patient's laboratory work is lactate is normal. White coat is a little elevated but it has been elevated on multiple occasions in the past. Glucose is elevated basic metabolic panel is normal, CRP is elevated as it has been before. Hemoglobin is a little bit higher than it has been before. Point of care troponin is negative. Liver function tests are markedly improved. I do see in his urine however he has got bacteria 3+ leukocyte esterase 10-25 wbc's, positive nitrates. Multiple times in the past he has not had this. And when he has grown this he has grown Klebsiella that is sensitive to Cipro and Levaquin. ECG Data Attestation: I personally reviewed and interpreted this ECG as follows: ECG interpretation date: 03/16/25 Prior ECG tracings: available for review Interpretation: Normal sinus rhythm, no acute ST wave changes. QRS QT and QTC are all within normal limits. And compared to old EKG from 02/21/2025 is been no change. Discharge Plan Discharge Clinical Impression: Urinary tract infection, Osteomyelitis, Paraplegia, Eason catheter in place, H/O insertion of cholecystostomy tube, Chronic anticoagulation, Multiple sclerosis Patient Disposition: Xfer Other Condition: Stable Additional Instructions: Back to halfway, patient is stable at the present time. Return if worsening condition. Levaquin for 5 days orally as written. Activity Level: Light activity Prescriptions: No Action bacitracin 500 unit/gram ointment 1 applic topical BID sennosides-docusate sodium [Senna Plus] 8.6-50 mg tablet 2 tab-cap PO DAILY PRN Patient Comments: plus prn baclofen 10 mg tablet 10 mg PO BID Eliquis 5 mg tablet 5 mg PO BID atorvastatin 80 mg tablet 80 mg PO HS latanoprost 0.005 % drops 1 drp ophthalmic (eye) HS Rx Instructions: BOTH EYES Ear Wax Removal Kit 6.5 % drops 5 drp otic (ear) Q7D PRN Patient Comments: every Monday allopurinol 100 mg Tablet 100 mg PO DAILY Qty: 30 0RF clotrimazole 1 % cream 1 applic topical BID sennosides [senna] 8.6 mg tablet 17.2 mg PO DAILY PRN furosemide 40 mg tablet 40 mg PO DAILY metoprolol succinate 100 mg tablet extended release 24 hr 100 mg PO DAILY pantoprazole 40 mg tablet,delayed release (DR/EC) 40 mg PO BID calcium carbonate [Zachary-Gest Antacid] 200 mg calcium (500 mg) tablet,chewable 400 mg PO BID PRN polyethylene glycol 3350 17 gram/dose powder 17 g PO DAILY Patient Comments: plus prn lisinopril 40 mg tablet 40 mg PO DAILY cholecalciferol (vitamin D3) [Vitamin D3] 25 mcg (1,000 unit) tablet 25 mcg PO DAILY acetic acid 0.25 % solution See Rx Instructions .ROUTE BID Patient Comments: [NO ORIGINAL SIG] Rx Instructions: 1 APPLICATION twice a day AND PRN TO BUTTOCK WOUND oxycodone 5 mg tablet 5 mg PO Q6H PRN ferrous sulfate 325 mg (65 mg iron) Tablet 325 mg PO Q48H metformin 500 mg Tablet Extended Release 24 Hr 1,000 mg PO QPM ondansetron HCl 4 mg tablet 4 mg PO BID Stand Alone Forms: MyHealth Info Instructions
--- OUTSIDE RECORDS SUMMARY | 2025-03-17 00:05 | XMS_ITS | Encounter Summary ---
Author Organization [place] Address [address] [place] [address]. [place] [address] Care Team Providers Care Superintendent Commissary Name Role Phone TyBijan Primary Care Provider [phone] Encounter Details Date Type Department Care Team (Late st Contact Info) Description 02/19/2025 Medical Correspondence [facility] Information Management [address] [facility] [address] [place] [address] Scan, Non-Provider DR PORRAS Social History Tobacco Use Types Packs/Day Years Used Date Smoking Tobacco: Former Cigarettes Q uit: 07/24/1971 Smokeless Tobacco: Never Sex and Gender Information Value Date Recorded Sex Assigned at Not on file Legal Sex Male 2:17 PM TRIAL MGR Gender Identity Not on file Sexual Orientation Not on file documented as of this encounter Plan of Treatment Upcoming Encounters Date Type Department Care Team (Late st Contact Info) Description 04/21/2025 2:00 PM CDT Office Visit [facility] Infectious Disease Clinic [address] [address] Rl Evans MD [address] [place] [address], [facility] [address] [place], [place] [address] documented as of this encounter Visit Diagnoses Not on filedocumented in this encounter Care Teams Superintendent Commissary Relationship Specialty Start Date End Date Bijan Crawford Leonidas [address] [place] [address] PCP - General Family Medicine 01/20/25 documented as of this encounter
--- OUTSIDE RECORDS SUMMARY | 2025-03-17 00:06 | XMS_ITS | Encounter Summary ---
Author Organization [place] Address [address] [place] [address]. [place] [address] Care Team Providers Care Modern Languages Professor Name Role Phone Ty Bijan Leonidas Primary Care Provider [phone] Reason for Visit * Reason Onset Date Comments Advance Care Planning 02/25/2025 Encounter Details Date Type Department Care Team (Late st Contact Info) Description 02/25/2025 Documentation Only [facility] [address] [facility] [address] [place] [phone] Aida Moya, CLIENT ENGAGEMENT SPECIALIST [facility] [id number] [place], [place] [id number] Advance Care Planning Social History Tobacco Use Types Packs/Day Years Used Date Smoking Tobacco: Former Cigarettes Q uit: 07/24/1971 Smokeless Tobacco: Never Sex and Gender Information Value Date Recorded Sex Assigned at Not on file Legal Sex Male 2:17 PM HEALTH PROFESSIONAL Gender Identity Not on file Sexual Orientation Not on file documented as of this encounter Plan of Treatment Upcoming Encounters Date Type Department Care Team (Late st Contact Info) Description 04/21/2025 2:00 PM CDT Office Visit [facility] Infectious Disease Clinic [place] [address] [place] [address] Rl Evans MD [address] [facility], [facility] [address] [place], [place] [phone] documented as of this encounter Visit Diagnoses Not on filedocumented in this encounter Care Teams Modern Languages Professor Relationship Specialty Start Date End Date Bijan Crawford [address] [place] [address] PCP - General Family Medicine 01/20/25 documented as of this encounter
--- OUTSIDE RECORDS SUMMARY | 2025-03-17 00:06 | XMS_ITS | Encounter Summary ---
Author Organization [place] Address [facility] [facility] [place] [address] Care Team Providers Care Elevator Conductor Name Role Phone Bijan Crawford Primary Care Provider [phone] Rl Evans MD Unavailable [phone] Reason for Visit * Reason Onset Date Comments conversation 03/10/2025 wantnitza to disc uss patient with Dr Evans Encounter Details Date Type Department Care Team ([facility] Contact Info) Description 03/10/2025 [facility] Infectious Disease Clinic [address] [address] Rl Evans MD [address] [facility], [facility] [address] [place] [address] conversation ( wants to discuss patient with Dr Evans) Social History Tobacco Use Types Packs/Day Years Used Date Smoking Tobacco: Former Cigarettes Q uit: 07/24/1971 Smokeless Tobacco: Never Sex and Gender Information Value Date Recorded Sex Assigned at Not on file Legal 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 Center Phone Message May a detailed message be left on voicemail: yes Reason for Call: Silvia calling to let Dr Evans know that Dr Stella Mejia from [facility] would like to talk to him about the patient. Please call her on cell phone. Number given. [phone] Action Taken: Message routed to: [facility] ID Travel Screening: Not Applicable Date of Service: documented in this encounter Plan of Treatment Upcoming Encounters Date Type Department Care Team (Late st Contact Info) Description 04/21/2025 2:00 PM CDT Office Visit [facility] Infectious Disease Clinic [address] [id number] Rl Evans MD [address] [place] [address], [facility] [address] [place], [place] [address] documented as of this encounter Visit Diagnoses Not on filedocumented in this encounter Care Teams Elevator Conductor Relationship Specialty Start Date End Date Bijan Crawford [address] [place], [place] [address] PCP - General Family Medicine 01/20/25 Rl Evans MD [address] [place] [address], [facility] [address] [place], [place] [phone] Assigned Infectious Disease Provider 03/15/25 documented as of this encounter
--- OUTSIDE RECORDS SUMMARY | 2025-03-17 00:08 | XMS_ITS | Patient Health Record ---
Author Organization [facility] Address [address] [facility] [address] [place] [address] Care Team Providers Care Compensation Programs Manager Name Role Phone Rubén Paez MD Primary Care Provider Melody Michael [place] Unavailable [phone] Reason For Referral No Information Social History Tobacco Use: Social History Observation Description Date Details (start date - stop date) Former Smoker NA - NA Tobacco Use/Smoking Question Answer Notes Are you a former smoker Section Notes: FAMILY HISTORY: HISTORY OF FAMILY PSYCH: Problems Problem Type SNOMED Code ICD Code Onset Dates Problem Status W/U Status Risk Notes Problem Tinea unguium (459116047) Tinea unguium (B35.1) Active confirmed Problem 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 (664043467) 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 confirmed Problem Nail dystrophy (09340847) 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 Problem Pressure injury of right buttock stage III (disorder) (52862292085135 ) Pressure ulcer of right buttock, stage 3 (L89.313) Active confirmed Problem Pressure injury of right heel stage IV (disorder) (24874936928213 ) Pressure ulcer of right heel, stage 4 (L89.614) Active confirmed Plan Of Treatment No Information Insurance Providers Payer Name Payer Address Payer Phone Subscriber Number Group Number Insured Name Patient Relationship to Insured Coverage Start Date Coverage End Date [employer] [id number] (Government Programs) [address] [address] [place], [place] [id number] Ren Ramirez Self - patient is the insured 7 [facility] [place] Government Services/Med icare [address] [facility] [place] [address] [id number] Ren Ramirez Self - patient is the insured 3
[2025-03-17 00:10] VITALS: RESP 8; O2SAT 94
[2025-03-17 00:20] VITALS: RESP 15; O2SAT 93
[2025-03-17 00:49] VITALS: PULSE 67; RESP 18; TEMP 36.7
== END 2025-03-17 00:51 | disposition other institution (70) ==
LOC: ED 23:58
PROVIDERS: Emergency Provider Family Medicine; PCP Family Medicine
DX: N39.0 Urinary tract infection, site not specified (principal); G35 Multiple sclerosis; M86.9 Osteomyelitis, unspecified; G82.20 Paraplegia, unspecified; Z79.01 Long term (current) use of anticoagulants
CPT/HCPCS: 36415; 80048; 80076; 81001; 83605; 83690; 83880; 84484; 85025; 85610; 85730; 86140; 87040; 87086; 87186; 94761; 96365; 99285; J1956

== ENCOUNTER 2025-03-17 00:38 | Outpatient (CLI) | payer MEDICARE, SELFPAY | END 2025-03-17 00:39 | disposition home or self-care (01) | LOC: AMB 03-20 09:43 | PROVIDERS: PCP Family Medicine; Visit Provider Family Medicine | DX: R11.10 Vomiting, unspecified (principal); R10.9 Unspecified abdominal pain | CPT/HCPCS: A0425; A0428 ==

== ENCOUNTER 2025-03-19 12:31 | Outpatient (CLI) | payer MEDICARE, SELFPAY | END 2025-03-19 12:32 | disposition home or self-care (01) | LOC: WOUND 12:31 | PROVIDERS: PCP Family Medicine; Visit Provider Surgery | DX: M86.68 Other chronic osteomyelitis, other site (principal); L89.324 Pressure ulcer of left buttock, stage 4; L89.151 Pressure ulcer of sacral region, stage 1; G82.20 Paraplegia, unspecified; G35 Multiple sclerosis; I25.10 Atherosclerotic heart disease of native coronary artery without angina pectoris; I26.09 Other pulmonary embolism with acute cor pulmonale; I10 Essential (primary) hypertension; Z99.3 Dependence on wheelchair; Z79.01 Long term (current) use of anticoagulants | CPT/HCPCS: 11042; 97605 ==

== ENCOUNTER 2025-03-20 13:00 | Outpatient (RCR) | payer MEDICARE, SELFPAY | END 2025-03-23 23:59 | disposition home or self-care (01) | LOC: WOUND 13:00 | PROVIDERS: PCP Family Medicine; Visit Provider Physician Assistant Surgical | DX: M86.68 Other chronic osteomyelitis, other site (principal); L89.324 Pressure ulcer of left buttock, stage 4; L89.151 Pressure ulcer of sacral region, stage 1; L89.152 Pressure ulcer of sacral region, stage 2; G35 Multiple sclerosis; G82.20 Paraplegia, unspecified; I26.09 Other pulmonary embolism with acute cor pulmonale; Z99.3 Dependence on wheelchair; Z96.0 Presence of urogenital implants; Z59.82 Transportation insecurity | CPT/HCPCS: 36415; 80048; 80076; 83605; 85025; 86140; G0277; G0463 ==

== ENCOUNTER 2025-03-21 10:53 | Outpatient (CLI) | payer MEDICARE, SELFPAY | END 2025-03-21 10:54 | disposition home or self-care (01) | LOC: AMB 03-25 16:54 | PROVIDERS: PCP Family Medicine; Visit Provider Internal Medicine | DX: R10.9 Unspecified abdominal pain (principal) | CPT/HCPCS: A0425; A0433 ==

== ENCOUNTER 2025-03-21 11:26 | Emergency (ER) | payer MEDICARE, SELFPAY ==
--- OUTSIDE RECORDS SUMMARY | 2025-02-04 12:11 | XMS_ITS | Encounter Summary ---
Author Organization [facility] Address [address] [place] [address] Care Team Providers Care Stone Polisher Name Role Phone Jeff Reyes M.D. Primary Care Provider [phone] Reason for Referral * Outpatient (Routine) - Authorized Specialty Diagnoses / Procedures Referred By Contac t Referred To Contact Radiology Diagnoses Cholecystitis Procedures IR Percutaneous Cholecystostomy Tube Exchange Anuel Nunn M.D. [facility] [place] [address] Phone: tel: fax: [facility] Referral ID Status Reason Start Date Expiration Date V isits Requested Visits Authorized [id number] Authorized 02/05/2025 05/08/2026 1 1 * Outpatient (Routine) - Authorized Specialty Diagnoses / Procedures Referred By Contelly t Referred To Contact General Surgery Diagnoses Cholecystitis Anuel Nunn M.D. [address] [place] [address] Phone: tel: fax: [facility] Referral ID Status Reason Start Date Expiration Date Visits Requested Visits Authorized [id number] Authorized Specialty Services Required 02/04/2025 08/06/2026 1 1 * Outpatient (Routine) - Closed Specialty Diagnoses / Procedures Referred By Jono donohue Referred To Contact Radiology Diagnoses Cholecystitis Procedures IR Percutaneous Cholecystostomy Tube Exchange Anuel Nunn M.D. [address] [place] [phone] Phone: tel: fax: [facility] Referral ID Status Reason Start Date Expiration Date Visits Re quested Visits Authorized [id number] Closed 10/24/2024 01/24/2026 1 1 Reason for Visit * Outpatient (Routine) - Closed Specialty Diagnoses / Procedures Referred By Jono donohue Referred To Contact Radiology Diagnoses Cholecystitis Procedures IR Percutaneous Cholecystostomy Tube Exchange Anuel Nunn M.D. [address] [place] [phone] Phone: tel: fax: [facility] Referral ID Status Reason Start Date Expiration Date Visits Re quested Visits Authorized [id number] Closed 10/24/2024 01/24/2026 1 1 Encounter Details Date Type Department Care Team (Latest Contact Info) Description 02/04/2025 12:11 PM CDT - 02/04/2025 1:42 PM CDT Hospital Encounter Department of Radiology in [address] [address] Anuel Nunn M.D. [address] [place] [phone] Cholecystitis Discharge Disposition: Home or Self Care Social History Tobacco Use Types Packs/Day Years Used Date Smoking Tobacco: Former Cigarettes Q uit: 1977 Passive Smoke Exposure: Never Alcohol Use Standard Drinks/Week Comments Not Currently 1 (1 standard drink = 0.6 oz pur e alcohol) [facility] Utilities Answer Date Recorded In the past 12 months has [employer], gas, oil, or water [employer] threatened to shut off services in your [...] your living situation today? I have a [facility] place to live 11/08/2024 Education Answer Date Recorded What is the highest level of school you have completed or the highest degree you have received? 12th grade 10/18/2022 Sex and Gender Information Value Date Recorded Sex Assigned at Male 06/26/2018 4:20 PM PENS AND PENCILS REPAIRER Legal Sex Male 3:33 AM PENS AND PENCILS REPAIRER Gender Identity Not on file Sexual Orientation Not on file documented as of this encounter Last Filed Vital Signs Vital Sign Reading Time Taken Comments Blood Pressure 111/57 02/04/2025 1:20 PM CDT Pulse 107 02/04/2025 1:20 PM CDT Temperature 36.4 C (97.5 F) 02/04/2025 12:23 PM CDT Respiratory Rate 16 02/04/2025 12:23 PM CDT Oxygen Saturation 95% 02/04/2025 1:20 PM CDT Inhaled Oxygen Concentration - - Weight - - Height - - Body Mass Index - - documented in this encounter Medications at Time of Discharge acetaminophen (TylenoL) 500 mg tablet Take 2 tablets (1,000 mg total) by mouth 3 (three) times a day. 08/16/2024 AntifungaL, clotrimazole, 1 % cream Apply 1 Application topically 2 (two) times a day. 05/14/2024 apixaban (Eliquis) 5 mg tablet Take 5 mg by mouth 2 (two) times a day. 12/17/2024 atorvastatin (Lipitor) 80 mg tablet Take 1 tablet (80 mg total) by mouth at bedtime. 90 tablet 3 11/08/2024 bacitracin 500 unit/gram ointment Apply 1 Application topically 2 (two) times a day. 08/10/2023 baclofen (LIORESAL) 10 mg tabletIndication s:Multiple Sclerosis (HCC) Take 1 tablet (10 mg total) by mouth 2 (two) times a day. 60 tablet 12/08/2022 BD PosiFlush Normal Saline 0.9 injection Use 10 mL via irrigation every day 01/13/2025 calcium carbonate (TUMS) 500 mg (200 mg calcium) chewable tablet Chew 2 tablets (400 mg of calcium total) 2 (two) times a day. 12/22/2022 cholecalciferol 25 mcg (1,000 unit) tablet Take 1 tablet (25 mcg total) by mouth daily. 08/16/2024 diclofenac sodium (Voltaren) 1 % gelIndications:M ultiple Sclerosis (HCC) Apply 2 g topically 2 (two) times a day as needed (pain). 08/16/2024 furosemide (Lasix) 40 mg tablet Take 40 mg by mouth every morning. latanoprost (XALATAN) 0.005 % ophthalmic solution Administer 1 drop into both eyes daily. 09/19/2022 lisinopriL (PRINIVIL,ZESTRI L) 40 mg tabletIndication s:Hypertension Essential Primary Take 1 tablet (40 mg total) by mouth daily. 90 tablet 12/08/2022 metoprolol succinate (TOPROL-XL) 100 mg 24 hr [...] meals. 08/16/2024 senna 8.6 mg tablet Take 17.2 mg by mouth every morning. 08/23/2024 sennosides-docus ate sodium (SENOKOT-S) 8.6-50 mg per tabletIndication s:Neurogenic Bowel Take 1 tablet by mouth 2 (two) times a day as needed for constipation. 07/04/2018 apixaban (Eliquis) 5 mg tablet Take 2 tablets (10 mg total) by mouth 2 (two) times a day for 3 days, THEN 1 tablet (5 mg total) 2 (two) times a day. 192 tablet 08/16/20[address] tablet Take 1 tablet (81 mg total) by mouth daily. 60 tablet 11/13/2022 5 furosemide (LASIX) 20 mg tablet Take 1 tablet (20 mg total) by mouth daily. 30 tablet 01/26/2023 5 GAS RELIEF 80 mg chewable tablet Chew 1 tablet (80 mg total) 4 (four) times a day as needed for flatulence. 08/16/2024 5 melatonin 5 mg tablet Take 1 tablet (5 mg total) by mouth at bedtime as needed (for sleep). 30 tablet 02/09/2024 5 NIFEdipine XL (PROCARDIA XL) 90 mg 24 hr tablet Take 1 tablet (90 mg total) by mouth daily. 90 tablet 12/09/2022 oxyCODONE (Roxicodone) 5 mg immediate release tablet Take 5 mg by mouth every 6 (six) hours as needed for severe pain or score 7-10 of 10. 08/29/2024 5 documented as of this encounter Procedure Notes * Anuel Nunn M.D. - 02/04/2025 1:15 PM CDT BRIEF POST PROCEDURE NOTE Vascular & Interventional Radiology PROCEDURE Routine cholecystostomy tube exchange PRE-PROCEDURE DIAGNOSIS Cholecystitis and intermittent cystic duct occlusion POST-PROCEDURE DIAGNOSIS Same. PROCEDURE DETAILS / FINDINGS Routine 14 Thai 25 cm cholecystostomy tube exchange. Please see Radiology Report for full details. [employer] Ollie Nunn M.D. SPECIMENS REMOVED None. ESTIMATED BLOOD LOSS <5ml COMPLICATIONS None. PATIENT DISPOSITION Return to outpatient unit for recovery. Discharge patient when discharge criteria met. PLAN Follow up with general surgery for possible cholecystectomy. Routine jazmín tube exchange in 3 months if the patient retains the catheter. documented in this encounter Plan of Treatment Upcoming Encounters Date Type Department Care Team (Latest Contact Info) Description 04/28/2025 1:00 PM CDT Comprehensive Visit Department of General Surgery in [place] [id number] [place] [phone] Roland Benson D.O. [address] [place] [phone] Discharge Disposition: Home or Self Care Scheduled Orders Name Type Priority Associated Diagnoses Order Schedule IR Percutaneous Cholecystostomy Tube Exchange Imaging RAD - Routine (most inpatients and all outpatients) Cholecystitis Expected: 05/08/2025, Expires: 05/08/2026 Scheduled Referrals Name Type Priority Associated Diagnoses Orde r Schedule General Surgery - General consult (clinic) Outpatient Referral Routine Cholecystitis Expected: 02/04/2025, Expires: 05/07/2026 documented as of this encounter Procedures Procedure Name Priority Date/Time Associated Diagnosis Comments IR PERCUTANEOUS CHOLECYSTOSTOMY TUBE EXCHANGE RAD - Routine (most inpatients and all outpatients) 02/04/2025 1:28 PM CDT Cholecystitis documented in this encounter Results * IR Percutaneous Cholecystostomy Tube Exchange (02/04/2025 1:28 PM CDT) Anatomical Region Laterality Modality Abdomen, Vascular Interventi onal RST LOS, Vascular Interventional ARZ LOS, Vascular Interventional FLA LOS N/A X-Ray Angiography Impressions 02/05/2025 8:25 PM CDT Routine exchange of the cholecystostomy catheter. Cystic duct is patent on today's exam. Narrative 02/05/2025 8:25 PM CDT EXAM: IR PERCUTANEOUS CHOLECYSTOSTOMY TUBE EXCHANGE INDICATION: 74 year old male with history of cholecystitis requiring 14 Thai cholecystostomy catheter, routine 3 month exchange COMPARISON: Cholecystostomy tube exchange from 10/24/2024 PROCEDURAL PERSONNEL: Attending: Anuel Nunn PREPROCEDURE: Patient [...] Patient education provided by a care steam heating installer. Patient was ready to learn with no apparent learning barriers were identified. Post-procedure care explained; patient expressed understanding of the content. PROCEDURE DETAILS: Sedation: None. Sedation time: Not applicable. Estimated Blood Loss: Less than 10 mL. TECHNIQUE: Imaging guidance for catheter exchange: Fluoroscopy with permanent image storage Access side: Right lateral abdomen intercostal transhepatic Catheter: 14 Thai 25 cm multipurpose pigtail drain Technique: The indwelling catheter was injected with contrast. A guidewire was inserted through the catheter, and the catheter was exchanged for a new 14 Thai catheter. Contrast was injected confirming the location of the catheter. A permanent image was saved to PACS. The catheter was connected to a gravity drainage bag. Intraprocedural or immediate post-procedural complications: None FINDINGS: Initial images showed patency of the cystic duct on today's exam. Catheter tip location: Final fluoroscopic image demonstrates the catheter tip to be located within the gallbladder. Additional observations: None. PLAN: The patient is to return in 3 months for a routine catheter exchange. Follow-up with general surgery. Procedure Note Anuel Nunn M.D. - 02/05/2025 EXAM: IR PERCUTANEOUS CHOLECYSTOSTOMY TUBE EXCHANGE INDICATION: 74 year old male with history of cholecystitis requiring 14French cholecystostomy catheter, routine 3 month exchange COMPARISON: Cholecystostomy tube exchange from 10/24/2024 PROCEDURAL PERSONNEL: Attending: Anuel Nunn PREPROCEDURE: Patient [...] Patient education provided by a care steam heating installer. Patient was ready to learn withno apparent learning barriers were identified. Post-procedure careexplained; patient expressed understanding of the content. PROCEDURE DETAILS: Sedation: None. Sedation time: Not applicable. Estimated Blood Loss: Less than 10 mL. TECHNIQUE: Imaging guidance for catheter exchange: Fluoroscopy with permanent imagestorage Access side: Right lateral abdomen intercostal transhepatic Catheter: 14 Thai 25 cm multipurpose pigtail drain Technique: The indwelling catheter was injected with contrast. A guidewirewas inserted through the catheter, and the catheter was exchanged for anew 14 Thai catheter. Contrast was injected confirming the location ofthe catheter. A permanent image was saved to PACS. The catheter was connected to a gravity drainage bag. Intraprocedural or immediate post-procedural complications: None FINDINGS: Initial images showed patency of the cystic duct on today's exam. Catheter tip location: Final fluoroscopic image demonstrates the cathetertip to be located within the gallbladder. Additional observations: None. PLAN: The patient is to return in 3 months for a routine catheter exchange.Follow-up with general surgery. IMPRESSION: Routine exchange of the cholecystostomy catheter. Cystic duct is patenton today's exam. us Anuel Nunn M.D. IMG IR PROCEDURES Final Resul t documented in this encounter Visit Diagnoses Diagnosis Cholecystitis documented in this encounter Administered Medications Inactive Administered Medications - up to 3 most recent administrations Medication Order MAR Action Action Date Dose Rate Site iohexoL 350 mg iodine/mL solution (Omnipaque) As needed, Starting on 02/04/25 at 1322, Intra-Op Given 02/04/2025 1:22 PM CDT 10 mL lidocaine-sodium bicarbonate (buffered) 0.9%-0.84% injection infiltration, As needed, Starting on 02/04/25 at 1311, Intra-Op Given 02/04/2025 1:11 PM CDT 7 mL Abdominal Tissue documented in this encounter Active and Recently Administered Medications Times are shown in CDT. PRN Medication Order 02/02/2025 02/03/2025 02/04/2025 iohexoL 350 mg iodine/mL solution (Omnipaque) (COMPLETED) As needed, Starting on 02/04/25 at 1322, Intra-Op 1322 (Given - Provid er: Anuel Nunn M.D.) lidocaine-sodium bicarbonate (buffered) 0.9%-0.84% injection (COMPLETED) infiltration, As needed, Starting on 02/04/25 at 1311, Intra-Op 1311 (Given - Provid er: Anuel Nunn M.D.) documented in this encounter Additional Health Concerns Assessment Noted Time PHQ-9 Depression Total Score: 10 05/26/ 018 11:00 AM CDT documented as of this encounter Care Teams Stone Polisher Relationship Specialty Start Date End Date Jeff Reyes M.D. [address] [place] [phone] PCP - General 03/14/24 documented as of this encounter
--- OUTSIDE RECORDS SUMMARY | 2025-02-19 15:00 | XMS_ITS | Encounter Summary ---
Author Organization [place] Address [facility] [place] [address] Care Team Providers Care Precision Structural Metal Fitter Name Role Phone Bijan Crawford Primary Care Provider [phone] Reason for Referral * Consultation (Priority: 1-2 Weeks) - Pending Review Specialty Diagnoses / Procedures Referred By Jono donohue Referred To Contact Plastic Surgery Diagnoses Pressure ulcer Rl Evans MD 420 [facility] [address] [place] [address] Phone: tel: fax: Referral ID Status Reason Start Date Expiration Date V isits Requested Visits Authorized [id number] Pending Review 02/19/2025 02/19/2026 1 1 Question Answer Is the reason for referral related to a cancer diagnosis or breast reconstruction? No My Clinical Question Is: He has sacral decubitus ulcer. Pls assess for management options. Thanks. Scheduling Instructions: [facility] will call you to coordinate your care as prescribed by your provider. If you don't hear from a patient relations representative within 2 business days, please call . Comments Please be aware that coverage of these services is subject to the terms and limitations of your health insurance plan. Call member services at your health plan with any benefit or coverage questions. [facility] will call you to coordinate your care as prescribed by your provider. If you don't hear from a patient relations representative within 2 business days, please call . Reason for Visit * Reason Comments Consult * Consultation (Routine) - Pending Review Specialty Diagnoses / Procedures Referred By Jono donohue Referred To Contact Infectious Diseases Diagnoses Pressure ulcer Stella Mejia MD [address] [place] [address] Phone: tel: fax: Referral ID Status Reason Start Date Expiration Date V isits Requested Visits Authorized [id number] Pending Review 01/16/2025 01/16/2026 1 1 Encounter Details Date Type Department Care Team ([facility] st Contact Info) Description 02/19/2025 3:00 PM CDT Office Visit [facility] Infectious Disease [address] [place] [address] Rl Evans MD 420 [facility] [address] [place] [address] Pressure injury of left buttock, stage 4 (H) Social History Tobacco Use Types Packs/Day Years Used Date Smoking Tobacco: Former Cigarettes Q uit: 07/24/1971 Smokeless Tobacco: Never Tobacco Cessation:Counseling Given: Not Answered Sex and Gender Information Value Date Recorded Sex Assigned at Not on file 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 [facility] INFECTIOUS DISEASE [address] [facility] [address] Patient: Ren Ramirez, Date of 1950 Date [...] cholecystectomy first. They will be going to [place] for his surgeon. PLAN: Plastic surgery referral. 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 He [...] those episodes but the notes from EDand extension worker notes that his BP is normal. Physical [...] Care Team (Late st Contact Info) Description 04/21/2025 2:00 PM CDT Office Visit [facility] Infectious Disease Clinic [address] [address] Rl Evans MD 420 [facility], [facility] [address] [place], [place] [address] Scheduled Referrals Name Type Priority Associated Diagnoses Orde r Schedule Adult Plastic Surgery Superintendent Water And Sewer Systems Referral Referral Priority: 1-2 Weeks Pressure injury of left buttock, stage 4 (H) Expected: 02/19/2025 (Approximate), Expires: 02/19/2026 documented as of this encounter Visit Diagnoses Diagnosis Pressure injury of left buttock, stage 4 (H) documented in this encounter Care Teams Precision Structural Metal Fitter Relationship Specialty Start Date End Date Bijan Crawford [address] [place], [place] [address] PCP - General Family Medicine 01/20/25 documented as of this encounter
--- OUTSIDE RECORDS SUMMARY | 2025-02-22 | XMS_ITS | Encounter Summary ---
Author Organization [facility] Address [address] [place] [address] Care Team Providers Care Medication Assistant Name Role Phone Jeff Reyes M.D. 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 [address] [place] [phone] Phone: tel: fax: [facility] Region Referral ID Status Reason Start Date Expiration Date V isits Requested Visits Authorized [id number] Authorized 02/27/2025 05/30/2026 1 1 * Outpatient (Routine) - Authorized Specialty Diagnoses / Procedures Referred By Contac t Referred To Contact Ren Sung M.D. [address] [place] [phone] Phone: tel: fax: [facility] Region Referral ID Status Reason Start Date Expiration Date V isits Requested Visits Authorized [id number] Authorized 02/26/2025 08/28/2026 1 1 Scheduling Instructions [...] Expiration Date Visits Re quested Visits Authorized [id number] 1 1 Encounter Details Date Type Department Care Team (Latest Contact Info) Description 02/22/2025 - 02/27/2025 12:16 PM CDT Hospital Encounter [facility], Fourth Floor [facility] [place] [phone] Nneka Thomas M.B.B.S., Shankar [address] [place] [phone] Nelson Chand M.D. [address] [place] [phone] Ren Sung M.D. 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 Patient presented from [facility] to [facility] Department 02/21 due to altered mental [...] in [facility] and also imaging studies at [facility] showed: CT head Impression: No acute hemorrhage [...] collection. The patient was eventually transferred to [facility] for further care, as it was [...] AST P U/L 50* 56* 53* Disposition: senior care care facility Pending Labs at Discharge: Pending [...] spent 45 minutes, 30 minutes spent in hccc-as-xetb evaluation and coordination of care. Ren Sung MD [facility] Medicine Service documented in this encounter Medications [...] 75 y.o. male who was admitted to [facility] 02/22/2025 due to Encephalopathy Metabolic [G93.41]. Social work was consulted to assist with discharge planning. A psychosocial assessment was completed on 08/09/2024 by Loida York [facility]. OBJECTIVE Patient Active Problem List Diagnosis Code Hypertension Essential Primary I10 Multiple Sclerosis (HCC) G35 Hypokalemia E87.6 Neuromuscular Dysfunction Of Bladder Unspecified N31.9 Neurogenic Bowel K59.2 Hypoalbuminemia E88.09 Atherosclerotic Heart Disease Of [place] Coronary Artery Without Angina Pectoris I25.10 Paraparesis Spastic ([facility]) G82.20 Abdominal Pain R10.9 Hematemesis K92.0 Hematochezia K92.1 Nausea R11.0 COVID-19 Infection U07.1 Apnea Sleep Obstructive G47.33 Lymphedema I89.0 Weakness General R53.1 Body Mass Index 33.0 To 33.9 Adult Z68.33 Acute Cystitis With Hematuria N30.01 Fracture Femoral Condyle Closed Initial Right ([facility]) S72.411A Fracture Hip Closed Initial Right ([facility]) S72.001A Osteoporosis Hip With Pathological Fracture Initial Right ([facility]) M80.051A Open Reduction Internal Fixation Hip Status Post Z97.8 Paraplegia ([facility]) G82.20 Embolus Pulmonary ([facility]) I26.99 Acute Embolism And Thrombosis Of Other Specified Deep Vein Of Lower Extremity Bilateral ([facility]) I82.493 Body Mass Index 34.0 To 34.9 Adult Z68.34 Encephalopathy Metabolic G93.41 Pressure Injury (Ulcer) Of Sacral Region Stage 4 ([facility]) L89.154 ASSESSMENT / PLAN ASSESSMENT Patient not formally assessed. Coordination of care only. INTERVENTION Potato Grader completed bedside team rounds with Dr. Sung and nursing. Patient is medically ready for discharge. Patient will have a midline placed before discharge. Potato Grader sent message to [facility] notifying them of discharge time of 1200 from [facility] and that patient would be discharging with a midline. PLAN 1. Social work will assist as needed and requested. Anabella Parmar 02/27/25 * Mackenzie Wells - 02/27/2025 8:50 AM CDT Date and time discharge transportation arranged for: 02/27 @ 1200 Meet at door: C Nurse's station: [phone] Transportation company: [employer]) ([phone]) Type of transport: Wheelchair needs to be provided Destination: [facility] Transportation will be paid for by: Insurance Cost: na Bariatric: no Legs extended: no Needing Oxygen: no * Naldo Underwood - 02/26/2025 1:55 PM CDT Palliative Medicine Music Therapy Assessment Note Patient: Ren Ramirez Age:75 y.o. Location: [place] [address] Date of Encounter: 02/26/2025 Time of Encounter: 1355 Visit Duration: 5 min Reason(s) of encounter: Coping, Quality of Life, and Symptom Management Summary: Upon arrival, Mr. Ramirez (Ren) was seated upright with his eyes open; HERBOLOGIST was present. He endorsed pain on his [...] Care Music Therapist * Twyla Arita M.S., CCC-[facility] - 02/26/2025 1:24 PM CDT Per RN, [...] 75 y.o. male who was admitted to [facility] 02/22/2025 due to Encephalopathy Metabolic [G93.41]. Social work was consulted to assist with discharge planning. A psychosocial assessment was completed on 08/09/2024 by DEANGELO Damon. OBJECTIVE Patient Active Problem List Diagnosis Code Hypertension Essential Primary I10 Multiple Sclerosis (HCC) G35 Hypokalemia E87.6 Neuromuscular Dysfunction Of Bladder Unspecified N31.9 Neurogenic Bowel K59.2 Hypoalbuminemia E88.09 Atherosclerotic Heart Disease Of [place] Coronary Artery Without Angina Pectoris I25.10 Paraparesis Spastic ([facility]) G82.20 Abdominal Pain R10.9 Hematemesis K92.0 Hematochezia K92.1 Nausea R11.0 COVID-19 Infection U07.1 Apnea Sleep Obstructive G47.33 Lymphedema I89.0 Weakness General R53.1 Body Mass Index 33.0 To 33.9 Adult Z68.33 Acute Cystitis With Hematuria N30.01 Fracture Femoral Condyle Closed Initial Right ([facility]) S72.411A Fracture Hip Closed Initial Right ([facility]) S72.001A Osteoporosis Hip With Pathological Fracture Initial Right ([facility]) M80.051A Open Reduction Internal Fixation Hip Status Post Z97.8 Paraplegia ([facility]) G82.20 Embolus Pulmonary ([facility]) I26.99 Acute Embolism And Thrombosis Of Other Specified Deep Vein Of Lower Extremity Bilateral ([facility]) I82.493 Body Mass Index 34.0 To 34.9 Adult Z68.34 Encephalopathy Metabolic G93.41 Pressure Injury (Ulcer) Of Sacral Region Stage 4 ([facility]) L89.154 ASSESSMENT / PLAN ASSESSMENT Patient not formally assessed. Coordination of care only. INTERVENTION Potato Grader completed bedside team rounds with Dr. Sung and nursing. Patient is not medically ready for discharge. Potato Grader sent message via [employer] and left a voicemail for facility 7th grade social studies teacher, Mike, to clarify if facility would be able to accommodate wound vac and if IV antibiotic has been ordered for patient to discharge with. Potato Grader received message back in [employer] that patient is able to return. Potato Grader notified Dr. Sung and JEAN CARLOS Roger, that patient will discharge tomorrow. Potato Grader requested CMAs arrange wheelchair transport using patient's insurance, [employer], to coverthe cost of transportation. PLAN 1. [...] and bowel. Patient presented [facility] to [facility] Emergency Department 02/21 due to altered mental [...] in [facility] and also imaging studies at [facility] showed: CT head Impression: No acute hemorrhage [...] collection. The patient was eventually transferred to [facility] for further care, as it was [...] PCR Undetected Respiratory Syncytial Virus, PCR Undetected AZPC-Jeonphflkyq-7, PCR Undetected Specimen Source Swab, Nasopharynx Gram [...] bottle 1 out of 2 sets from [facility]. We are still awaiting speciation ([facility]: [id number]). Other contributing factor for the encephalopathy including [...] of treatment. # Concern Dysphagia - Initially [facility] [facility]CR[employer] recommended SB6 and mildly thick liquid. This [...] Muscle Mass: Normal Fluid Accumulation: Absent Reduced Shift Supervisor Rn Strength: Not applicable This is in the [...] spent 60 minutes, including time spent in mrgf-bi-vvxi evaluation and coordination of care * Twyla Arita M.S., CCC-[facility] [facility] - 02/25/2025 12:30 PM CDT Speech Language Pathology Dysphagia Treatment- Inpatient SUBJECTIVE Patient: Ren Ramirez Room: [address] [place] [address] Referring/Attending Provider: Nelson Chand M.D. Medical Diagnosis: Encephalopathy Metabolic [G93.41] Payor: MEDICA / Plan: [employer]ICA [employer] / Product Type: HMO / Reason for GRAND SCRIBE Referral: Mentation Onset Date: 02/22/2025 Past Medical / Surgical History: Problem List[1] Medical History[2] Surgical History[3] History of Present Illness: Ren Ramirez is a 75 y.o. male who was admitted to [facility] in [place] on 02/22/2025 due to Encephalopathy Metabolic [G93.41] [...] to ensure tolerance of recommended diet. PLAN [facility]E Ongoing Services: Ongoing formal Speech Pathology services Frequency of Treatment: DYS 0-7 L. Check Tom. Duration of Treatment: Until goals are met or patient is discharged [facility]E - Next Inpatient Appointment: 02/26/25 Rehab Potential: Good Re-evaluate: As clinically indicated Diet Recommendations - Solids: IDDSI Level 7 Regular Diet Recommendations - Liquids: IDDSI Level 0 Thin Please refer to OT and/or PT notes for potential additions to discharge recommendations. EDUCATION: Educated patient and caregivers regarding impressions, recommendations, and speech therapy plan of care. GOALS Dysphagia Snf Goal Dysphagia Snf Goal: Patient will tolerate a soft and bite size diet with mildly thick liquidswithout signs and symptoms of aspiration to maintain optimal nutrition with the least restrictive diet. 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) Abdominal Pain Hematemesis Hematochezia Nausea COVID-19 Infection Apnea Sleep Obstructive Lymphedema Weakness General Body Mass Index 33.0 To 33.9 Adult Acute Cystitis With Hematuria Fracture Femoral Condyle Closed Initial Right (HCC) Fracture Hip Closed Initial Right (HCC) Osteoporosis Hip With Pathological Fracture Initial Right ([facility]) Open Reduction Internal Fixation Hip Status Post Paraplegia (HCC) Embolus Pulmonary (HCC) Acute Embolism And Thrombosis Of Other Specified Deep Vein Of Lower Extremity Bilateral (HCC) Body Mass Index 34.0 To 34.9 Adult Encephalopathy Metabolic Pressure Injury (Ulcer) Of Sacral Region Stage 4 ([facility]) [2] Past Medical History: Diagnosis Date Apnea [...] 75 y.o. male who was admitted to [facility] 02/22/2025 due to Encephalopathy Metabolic [G93.41]. Social work was consulted to assist with discharge planning. A psychosocial assessment was completed on 08/09/2024 by DEANGELO Damon. OBJECTIVE Patient Active Problem List Diagnosis Code Hypertension Essential Primary I10 Multiple Sclerosis (HCC) G35 Hypokalemia E87.6 Neuromuscular Dysfunction Of Bladder Unspecified N31.9 Neurogenic Bowel K59.2 Hypoalbuminemia E88.09 Atherosclerotic Heart Disease Of [place] Coronary Artery Without Angina Pectoris I25.10 Paraparesis Spastic ([facility]) G82.20 Abdominal Pain R10.9 Hematemesis K92.0 Hematochezia K92.1 Nausea R11.0 COVID-19 Infection U07.1 Apnea Sleep Obstructive G47.33 Lymphedema I89.0 Weakness General R53.1 Body Mass Index 33.0 To 33.9 Adult Z68.33 Acute Cystitis With Hematuria N30.01 Fracture Femoral Condyle Closed Initial Right ([facility]) S72.411A Fracture Hip Closed Initial Right ([facility]) S72.001A Osteoporosis Hip With Pathological Fracture Initial Right ([facility]) M80.051A Open Reduction Internal Fixation Hip Status Post Z97.8 Paraplegia ([facility]) G82.20 Embolus Pulmonary ([facility]) I26.99 Acute Embolism And Thrombosis Of Other Specified Deep Vein Of Lower Extremity Bilateral ([facility]) I82.493 Body Mass Index 34.0 To 34.9 Adult Z68.34 Encephalopathy Metabolic G93.41 Pressure Injury (Ulcer) Of Sacral Region Stage 4 ([facility]) L89.154 ASSESSMENT / PLAN ASSESSMENT Patient not formally assessed. Coordination of care only. INTERVENTION Patient had been seen by Dr. Chand prior to bedside team rounds. Patient is not medically ready for discharge and will be seen by palliative medicine. Potato Grader requested IV antibiotic and saline flushes be placed by Infectious Disease and explained facility would need 24 hours to obtain IV antibiotic. Potato Grader send wound vac information to facility and [...] and bowel. Patient presented from [facility] to [facility] Emergency Department 02/21 due to altered mental [...] in [facility] and also imaging studies at [facility] showed: CT head Impression: No acute hemorrhage [...] collection. The patient was eventually transferred to [facility] for further care, as it was [...] PCR Undetected Respiratory Syncytial Virus, PCR Undetected IDRV-Oagjagdgkin-2, PCR Undetected Specimen Source Swab, Nasopharynx Gram [...] bottle 1 out of 2 sets from [facility]. We are still awaiting speciation ([facility]: [id number]). Other contributing factor for the encephalopathy including [...] of treatment. # Concern Dysphagia - Initially GRAND SCR[employer]E recommended SB6 and mildly thick liquid. This [...] Muscle Mass: Normal Fluid Accumulation: Absent Reduced Shift Supervisor Rn Strength: Not applicable This is in the [...] spent 40 minutes, including time spent in gqeo-ne-xwwa evaluation and coordination of care Nelson Chand M.D. [facility] * Candelario Castillo Pharm.D., R.Ph. - 02/25/2025 [...] Muscle Mass: Normal Fluid Accumulation: Absent Reduced Shift Supervisor Rn Strength: Not applicable This is in the [...] Wound Healing, Nausea/Vomiting/Diarrhea * Twyla Arita M.S., [facility] - 02/24/2025 11:32 AM CDT 02/24/25 1132 [...] 75 y.o. male who was admitted to [facility] 02/22/2025 due to Encephalopathy Metabolic [G93.41]. Social work was consulted to assist with discharge planning. A psychosocial assessment was completed on 08/09/2024 by Loida York [facility]. OBJECTIVE Patient Active Problem List Diagnosis Code Hypertension Essential Primary I10 Multiple Sclerosis (HCC) G35 Hypokalemia E87.6 Neuromuscular Dysfunction Of Bladder Unspecified N31.9 Neurogenic Bowel K59.2 Hypoalbuminemia E88.09 Atherosclerotic Heart Disease Of [place] Coronary Artery Without Angina Pectoris I25.10 Paraparesis Spastic ([facility]) G82.20 Abdominal Pain R10.9 Hematemesis K92.0 Hematochezia K92.1 Nausea R11.0 COVID-19 Infection U07.1 Apnea Sleep Obstructive G47.33 Lymphedema I89.0 Weakness General R53.1 Body Mass Index 33.0 To 33.9 Adult Z68.33 Acute Cystitis With Hematuria N30.01 Fracture Femoral Condyle Closed Initial Right ([facility]) S72.411A Fracture Hip Closed Initial Right ([facility]) S72.001A Osteoporosis Hip With Pathological Fracture Initial Right ([facility]) M80.051A Open Reduction Internal Fixation Hip Status Post Z97.8 Paraplegia ([facility]) G82.20 Embolus Pulmonary ([facility]) I26.99 Acute Embolism And Thrombosis Of Other Specified Deep Vein Of Lower Extremity Bilateral ([facility]) I82.493 Body Mass Index 34.0 To 34.9 Adult Z68.34 Encephalopathy Metabolic G93.41 ASSESSMENT / PLAN ASSESSMENT Patient not formally assessed. Coordination of care only. INTERVENTION Patient had been seen by Dr. Chnad prior to bedside team rounds. Patient is not medically ready for discharge and will be seen by palliative medicine. Potato Grader spoke with Riley 7th grade social studies teacher at [employer] ([phone]), who confirmed baseline information remains at the same from 07/2024 assessment (requires lift device, dependent in dressing, housekeeping, meal prep, shopping, independent with feeding and grooming, and needs assistance with bathing and toileting). Potato Grader asked if facility would be able to accommodate IV antibiotic,Ertapenem, 1g Q 24. Riley stated that the facility can accommodate the IV antibiotic but will needsorders 24 hours prior for pharmacy to provide antibiotic to facility. Potato Grader requested. Dr. Field with Infectious Disease place [...] Completed medication reconciliation with MAR provided by [facility]. Per MAR shows no tylenol listed [...] neurogenic bladder and bowel. Patient presented from [facility] to [facility] Department 02/21 due to altered mental [...] in [facility] and also imaging studies at [facility] showed: CT head Impression: No acute hemorrhage [...] collection. The patient was eventually transferred to [facility] for further care, as it was [...] PCR Undetected Respiratory Syncytial Virus, PCR Undetected DGWL-[id number]-3, PCR Undetected Specimen Source Swab, Nasopharynx Gram [...] bottle 1 out of 2 sets from [facility]. We are still awaiting speciation ([facility]: [id number]). Other contributing factor for the encephalopathy including dehydration and BISHOP. - His mental status is slowly improving yet not back to baseline. No longer having any slurred speech, but is delirious. - Continue meropenem for now. Follow urine cultures, blood cultures. Will need to receive more information from [facility]. # Dysphagia - GRAND SCRIBE recommended SB6 and mildly thick liquid. # [...] Muscle Mass: Normal Fluid Accumulation: Absent Reduced Shift Supervisor Rn Strength: Not applicable This is in the [...] spent 40 minutes, including time spent in ksob-mi-zeys evaluation and coordination of care Nelson Chand M.D. [facility] * Nelson Chand M.D. - 02/23/2025 11:16 [...] neurogenic bladder and bowel. Patient presented from [facility] to [facility] 02/21 due to altered mental [...] in [facility] and also imaging studies at [facility] showed: CT head Impression: No acute hemorrhage [...] collection. The patient was eventually transferred to [facility] for further care, as it was [...] PCR Undetected Respiratory Syncytial Virus, PCR Undetected [id number]-Fdscnhwaisx-8, PCR Undetected Specimen Source Swab, Nasopharynx Gram [...] gram negative aden in aerobic bottle from [facility]. We arestill waiting speciation. Other contributing factor for the encephalopathy including dehydration and BISHOP. - His mental status is slowly improving yet not back to baseline. No longer having any slurred speech. - The patient was started on broad spectrum antibiotics, we will likely need to de-escalate as microbiology data evolves. Follow urine cultures, blood cultures. Will need to receive more information from [facility]. # Dysphagia - GRAND SCRIBE recommended SB6 and mildly thick liquid. # [...] Muscle Mass: Normal Fluid Accumulation: Absent Reduced Shift Supervisor Rn Strength: Not applicable This is in the [...] spent 50 minutes, including time spent in tdcj-bk-afxu evaluation and coordination of care Nelson Chand M.D. [facility] * Elder Barrientos M.D. - 02/23/2025 10:23 [...] - Date/Time Bacterial Culture, Aerobic + Susceptibility [[id number]] Collected: 02/22/25 1230 Lab Status: Preliminary result Specimen: Synovial Fluid, Right Wrist Updated: 02/23/25 0613 Bacterial Culture, Aerobic + Susc No growth to date Bacterial Culture, Anaerobic + Susceptibility [[id number]] Collected: 02/22/25 1230 Lab Status: In process Specimen: Synovial Fluid, Right Wrist Updated: 02/22/25 1248 Gram Stain [[id number]] Collected: 02/22/25 1230 Lab Status: Final result Specimen: Synovial Fluid, Right Wrist Updated: 02/22/25 1413 Gram Stain No organisms seen. White blood cells present. Stain performed on concentrated cytospin preparation. Bacterial Culture, Aerobic + Susceptibility, Urine [[id number]] Collected: 02/22/25 0502 Lab Status: Final result Specimen: Urine, Indwelling Catheter Updated: 02/23/25 0847 Urine Culture No growth after 1 day of incubation. SARS CoV-2, Influenza A/B, RSV, PCR Symptomatic [[id number]] Collected: 02/22/25 0502 Lab Status: Final result Specimen: Swab from Nasopharynx Updated: 02/22/25 0640 Influenza A, PCR Undetected Comment: Influenza A viral RNA absent. Influenza B, PCR Undetected Comment: Influenza B viral RNA absent. Respiratory Syncytial Virus, PCR Undetected Comment: RSV RNA absent. QXGF-Inbviwywofp-5, PCR Undetected Comment: SARS-CoV-2 RNA absent. ----ADDITIONAL INFORMATION---- This RT-PCR test using the Xpert Xpress SARS-CoV-2/Flu/RSV assay ([employer] performed on the [employer] systems has received Emergency Use Authorization (EUA) by the U.S. Food and Drug Administration. Performance characteristics were verified by [facility] in a manner consistent with CLIA requirements. Fact sheets for this Emergency Use Authorization (EUA) assay can be found at the following links: For Healthcare Providers: https://www.fda.gov/media/313561/download For Patients: https://www.fda.gov/media/541995/download Specimen Source Swab, Nasopharynx Bacteria / Bautista Culture, Blood #2 [[id number]] Collected: 02/22/25 0435 Lab Status: Preliminary result Specimen: Blood, Peripheral Draw Updated: 02/23/25 0505 Bacteria/Bautista Culture, Blood No growth to date. Bacteria / Bautista Culture, Blood #1 [[id number]] Collected: 02/22/25 0428 Lab Status: Preliminary result [...] gram negative aden in aerobic bottle from [facility]. Source of this is unclear at this [...] neurogenic bladder and bowel. Patient presented from [facility] to [facility] 02/21 due to altered mental [...] in [facility] and also imaging studies at [facility] showed: CT head Impression: No acute hemorrhage [...] collection. The patient was eventually transferred to [facility] for further care, as it was [...] at this time as inpatient given his BISOHP. # CAD: continue aspirin and statins. No [...] aspiration results are back. * Carolyn Blackburn CCC-GRAND SCRIBE - 02/22/2025 10:11 AM CDT Attempted to complete a bedside swallow evaluation; patient not alert and when eyes open refusals to participate. Communication of [facility] one time during attempt. Will continue to [...] bowel. 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) Abdominal Pain Hematemesis Hematochezia Nausea COVID-19 Infection Apnea Sleep Obstructive Lymphedema Weakness General Body Mass Index 33.0 To 33.9 Adult Acute Cystitis With Hematuria Fracture Femoral Condyle Closed Initial Right (HCC) Fracture Hip Closed Initial Right (HCC) Osteoporosis Hip With Pathological Fracture Initial Right ([facility]) Open Reduction Internal Fixation Hip Status Post Paraplegia ([facility]) Embolus Pulmonary (HCC) Acute Embolism And Thrombosis Of Other Specified Deep Vein Of Lower Extremity Bilateral ([facility]) Body Mass Index 34.0 To 34.9 Adult Encephalopathy Metabolic Past Medical History: Diagnosis Date Apnea Sleep Obstructive Arthritis Rheumatoid (HCC) Coronary Artery Disease (Unspecified) Glaucoma Heart Failure NOS Hyperlipidemia Hypertension NOS Multiple Sclerosis (HCC) Non-ST Elevation Myocardial Infarction ([facility]) 05/26/2018 Open Reduction Internal Fixation Hip Status Post 12/22/2022 Other Specified Health Status Pressure Injury (Ulcer) Of Sacral Region Stage 4 ([facility]) 03/24/2017 Sleep Apnea SURGICAL HISTORY Past Surgical [...] Patient received about2 L of fluids at [facility]. At this time, continue hydration while patient [...] place.Please see Radiology Report for full details. LOOPER FIXER Ollie Nunn M.D. SPECIMENS REMOVED None. ESTIMATED [...] Please see Radiology Report for full details. LOOPER FIXER Ollie Nunn M.D. SPECIMENS REMOVED 0.5 mL minimal fluid + debris ESTIMATED BLOOD LOSS <5ml COMPLICATIONS None. PATIENT DISPOSITION Return to inpatient bed. documented in this encounter Consult Notes * Alycia Del Toro M.D. - 02/25/2025 5:05 PM CDTAssociated Order(s): IP CONSULT TO PALLIATIVE CARE PALLIATIVE MEDICINE CONSULT SUBJECTIVE PRIMARY CARE PROVIDER: Jeff Reyes M.D. REFERRING SERVICE: Hospitalist REASON FOR CONSULT: assistance with clarification of goals of care. goals of care discussion, daughter samantha rosa PRIMARY CONSULT DIAGNOSIS: Infectious Disease PRESENT DURING [...] was in place patient was admitted to [facility] on 02/22 with altered mental status. The patient was eventually transferred to [facility] for further care, as it was [...] operate a motorized wheelchair while at [facility] nursing home facility. -- Nutritional: Patient reports adequate nutrition and adds that he tries to drink protein shakes to supplement. He does admit to not drinking enough fluids. Social and cultural aspects of care: Patient's in 2021, since then he has moved into a nursing home facility. He andhis have 3 children together. [...] reviewed labs and CT. Imaging studies at [facility] showed: CT head Impression: No acute hemorrhage [...] was in place patient was admitted to [facility] on 02/22 with altered mental status. The patient was eventually transferred to [facility] for further care, as it was [...] for surgical interventions. + Return to [facility] when medically stable. # HOSPICE DISCUSSION: [...] other diagnostics, and collaboration with other clinicians. [id number] visit including history, physical examination, and discussion [...] abnormal cholangiogram HISTORY OF PRESENT ILLNESS Ren Ramirez is a 75 y.o. patient with comorbidities [...] Advanced Endoscopy Division of Gastroenterology and Hepatology [facility] * DuniaPaty R.N., Vannesa, ON - [...] WOUND ASSESSMENT: Wound #1 Type: Pressure Injury [facility] Pressure Injury Staging: Stage 4 Wound Location: Sacrum Wound Orientation: Mid Wound Tunnel/Induration: Length 3.5 cm, Width 4.3 cm, Depth 1.5 cm, and Undermining 2.5 cm at 12-5 o'clock . Wound Bed Tissue: Red, Clean, and Granulation tissue 100% Isatu-Wound Skin: Blanchable erythema, Denuded, Fragile, and Red Wound Drainage Amount and Appearance: Serosanguineous Wound #2 Type: Pressure Injury [facility] Pressure Injury Staging: Stage 4 Wound Location: Ischial Tuberosity Wound Orientation: Left Wound Tunnel/Induration: Length 2.5 cm, Width 9 cm, Depth 4 cm, and Undermining 4 cm at 12-5 o'clock . Wound Bed Tissue: Red, Yellow, Granulation 75% 25% Slough Isatu-Wound Skin: Blanchable erythema, Denuded, Fragile, and Red Wound Drainage Amount and Appearance: Serosanguineous Wound #3 Type: Pressure Injury [facility] Pressure Injury Staging: Deep Tissue Wound [...] piece on hip cut a dime sized modoc in the drape. Place Sensitrack. Place more [...] keep anatomic position of ankle. Please contact [facility] RNs if you have any question or concerns regarding wound care. Paty Duque R.N., LAKISHA at [phone] Martine Deluna R.N., WEI at [phone] * Carolyn Blackburn, [facility] - 02/23/2025 9:49 AM CDT Consults Speech Pathology Clinical Swallow Evaluation - Inpatient SUBJECTIVE Patient: Ren Ramirez Room: [facility] Referring/Attending Provider: Nelson Chand M.D. Medical Diagnosis: Encephalopathy Metabolic [G93.41] Payor: MEDICA / Plan: MEDICA [employer] / Product Type: HMO / Reason for GRAND SCRIBE Referral: dysphasia Onset Date: 02/22/2025 Past Medical / Surgical History: Problem List[1] Medical History[2] Surgical History[3] History of Present Illness: Ren Ramirez is a 75 y.o. male who was admitted to [facility] in [place] on 02/22/2025 due to Encephalopathy Metabolic [G93.41] [...] patient and caregivers regarding impressions, recommendations, and GRAND SCRIBE plan of care. 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[facility]) Abdominal Pain Hematemesis Hematochezia Nausea COVID-19 Infection Apnea Sleep Obstructive Lymphedema Weakness General Body Mass Index 33.0 To 33.9 Adult Acute Cystitis With Hematuria Fracture Femoral Condyle Closed Initial Right (HCC) Fracture Hip Closed Initial Right ([facility]) Osteoporosis Hip With Pathological Fracture Initial Right ([facility]) Open Reduction Internal Fixation Hip Status Post Paraplegia ([facility]) Embolus Pulmonary ([facility]) Acute Embolism And Thrombosis Of Other Specified [...] was in place patient was admitted to [facility] on 02/22 with altered mental status. REVIEW [...] Date/Time Bacterial Culture, Aerobic + Susceptibility, Urine [[id number]] Collected: 02/22/25501 Lab Status: In process Specimen: Urine, Indwelling Catheter Updated: 02/22/25 0511 SARS CoV-2, Influenza A/B, RSV, PCR Symptomatic [[id number]] Collected: 02/22/25 050 Lab Status: Final result Specimen: Swab from Nasopharynx Updated: 02/22/25 0640 Influenza A, PCR Undetected Comment: Influenza A viral RNA absent. Influenza B, PCR Undetected Comment: Influenza B viral RNA absent. Respiratory Syncytial Virus, PCR Undetected Comment: RSV RNA absent. KLFT-Johmrxoncws-3, PCR Undetected Comment: SARS-CoV-2 RNA absent. ----ADDITIONAL INFORMATION---- This RT-PCR test using the Xpert Xpress SARS-CoV-2/Flu/RSV assay ([employer] performed on the GeneX[employer]istence Before Essence systems has received Emergency Use Authorization (EUA) by the U.S. Food and Drug Administration. Performance characteristics were verified by [facility] in a manner consistent with CLIA requirements. Fact sheets for this Emergency Use Authorization (EUA) assay can be found at the following links: For Healthcare Providers: https://www.fda.gov/media/980232/download For Patients: https://www.fda.gov/media/825485/download Specimen Source Swab, Nasopharynx Bacteria / Bautista Culture, Blood #2 [[id number]] Collected: 02/22/25434 Lab Status: In process Specimen: Blood, Peripheral Draw Updated: 02/22/25448 Narrative: Specimen Information: Specimen ID: [id number] Specimen Source: Blood, Peripheral Draw Specimen Comment: Specimen Source Site: Blood Specimen Collection Start Date: 02/22/2025 4:35 AM Specimen Received Date: 02/22/2025 4:48 AM Specimen ID: [id number] Specimen Source: Blood, Peripheral Draw Specimen Comment: Specimen Source Site: Blood Specimen Collection Start Date: 02/22/2025 4:35 AM Specimen Received Date: 02/22/2025 4:48 AM Specimen ID: [id number] Specimen Source: Blood, Peripheral Draw Specimen Comment: Specimen Source Site: Blood Specimen Collection Start Date: 02/22/2025 4:35 AM Specimen Received Date: 02/22/2025 4:48 AM Bacteria / Bautista Culture, Blood #1 [[id number]] Collected: 02/22/25427 Lab Status: In process Specimen: Blood, Peripheral Draw Updated: 02/22/25448 Narrative: Specimen Information: Specimen ID: [id number] Specimen Source: Blood, Peripheral Draw Specimen Comment: Specimen Source Site: Blood Specimen Collection Start Date: 02/22/2025 4:28 AM Specimen Received Date: 02/22/2025 4:48 AM Specimen ID: [id number] Specimen Source: Blood, Peripheral Draw Specimen Comment: Specimen Source Site: Blood Specimen Collection Start Date: 02/22/2025 4:28 AM Specimen Received Date: 02/22/2025 4:48 AM Specimen ID: [id number] Specimen Source: Blood, Peripheral Draw Specimen Comment: [...] with altered mental status and transferred to [place] for further workup. Patient was foundto a [...] to person, place, and time. INTERVENTIONS This appeals writer completed a chart review. DEANGELO Damon completed a psychosocial assessment and baseline assessment of the patient on 08/09/24. Per Loida's information, [facility]. The patient's baseline assessment [...] and provides the patient with meals. This appeals writer has sent a reconnection referral to [facility]. This appeals writer anticipates that an updated baseline assessment from this facility would be best obtained on Monday if needed. The patient has a [facility] insurance policy, which would indicate that the patient should have a medical assistance covered bed hold in place. PLAN This appeals writer anticipates that the patient will return to [facility] at thetime of discharge. Social Work will continue to follow and assist as needed or requested. 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 Social History: from [facility] Food and Nutrition Related History Previous Diet: Pt recently seen 2wks ago by ST[facility]. Appetite noted to be poor at that time due to tastechanges and not liking food at his facility (from [facility]). Pt admitted in with [facility] was [...] Muscle Mass: Normal Fluid Accumulation: Absent Reduced Shift Supervisor Rn Strength: Not applicable This is in the [...] Weight: 107 kg BMI (Calculated): 31.8 kg/m?? [place] Body Weight (Calculated) : 77.6 kg % [place] Body Weight: 137 % IBW Adjusted Body [...] DISCHARGE Wheelchair TRANSPORTATION Wheelchair Van ACCOMPANIED BY HERBOLOGIST All belongings sent home with patient. Nurse [...] PLAN OF CARE: Possible DC 02/27 to [facility] with wheelchair van to transport. Problem: KNOWLEDGE [...] on for safety. * Vivian Smith R.N., [facility] - 02/26/2025 2:11 PM CDT Images [...] right side Wound #1 Type: Pressure Injury [facility] Pressure Injury Staging: Stage 4 Wound Location: Sacrum/Low back Wound Orientation: Mid Wound Tunnel/Induration: Length 2.5 cm, Width 2.5 cm, Depth 1.5 cm, and Undermining 2.0 cm at 1 o'clock . Wound Bed Tissue: Red, Clean, and Granulation tissue 100% Isatu-Wound Skin: Blanchable erythema, Denuded, Fragile, and Red Wound Drainage Amount and Appearance: Serosanguineous Wound #2 Type: Pressure Injury [facility] Pressure Injury Staging: Stage 4 Wound Location: Ischial Tuberosity Wound Orientation: Left Wound Tunnel/Induration: Length 6 cm, Width 3.5 cm, Depth 3.5 cm, and Undermining 3.3 cm at 9-6 o'clock . Wound Bed Tissue: Red, Yellow, Granulation 75% 25% Slough Isatu-Wound Skin: Blanchable erythema, Denuded, Fragile, and Red Wound Drainage Amount and Appearance: Serosanguineous Wound #3 Type: Pressure Injury [facility] Pressure Injury Staging: Deep Tissue Wound [...] piece on hip cut a dime sized modoc in the drape. Place Sensitrack. Place more [...] keep anatomic position of ankle. Please contact [facility] RNs if you have any question or concerns regarding wound care. Paty Duque R.N., CWON at [phone] Martine Deluna R.N., CWCN at [phone] * Aislinn Isbell - 02/26/2025 4:55 AM [...] 02/25/2025 Joining in person: Samantha Consult Location 8272 Updated bedside nurse , Dr. Chand, and [...] however, did refuse most morning meds and GRAND SCRIBE evaluation, thus NPO all day. Wound care [...] previous wound vac that was removed at [facility]. Potassium was high in am provider [...] and bowel. Patient presented from SNF to [facility] 02/21 due to altered mental [...] in [facility] and also imaging studies at [facility] showed: CT head Impression: No acute hemorrhage [...] collection. The patient was eventually transferred to [facility] for further care, as it was [...] Comprehensive Visit Department of General Surgery in [place], [place] [address] [place] [phone] Roland Benson D.O. [address] [place] [phone] Discharge Disposition: Home or Self Care Scheduled Orders Name Type Priority Associated Diagnoses Orde r Schedule [facility] Wound care Procedures Routine Pressure Injury (Ulcer) [...] POCT, B Routine 02/24/2025 5:[address] NEG PRESS WND THRPY <=50SCM Routine 02/24/2025 12:15 PM CDT Pressure Ulcer Of Unspecified Site Stage 4 (HCC) CT NEG PRESS WND THRPY <=50SCM Routine 02/24/2025 [...] Glucose, POCT (02/27/2025 11:38 AM CDT) Pathologist [facility] Glucose, POCT, B 137 70 - 140 mg/dL 02/27/2025 11:38 AM CDT MKTO Blood 02/27/2025 11:3 8 AM CDT 02/27/2025 11:48 AM CDT us Generic [facility] POCT ORDERABLES-MANUAL Final Result [facility] [address] [place] [address], [facility] MKTO [facility] in [address] [address] * Place midline catheter (single lumen) (02/27/2025 [...] completed successfully: yes Complications: no apparent complications us Ren Sung M.D. PROCEDURE/MINOR SURGICAL ORDER TOMY Final Result * Glucose, POCT (02/27/2025 6:54 AM CDT) Glucose, POCT, B 127 70 - 140 mg/dL 02/27/2025 6:54 AM CDT MKTO Blood 02/27/2025 6:54 AM CDT 02/27/2025 7:03 AM CDT us Generic [facility] POCT ORDERABLES-MANUAL Final Result [facility] [place] [address], [facility] MKTO [facility] [place] [address] [place] [address] * (ABNORMAL) Comprehensive Metabolic Panel (02/27/2025 6:37 [...] Sung M.D. LAB BLOOD ADD-ON Final Result [facility] [address] [place] [address] * Glucose, POCT (02/26/2025 8:02 PM CDT) Glucose, POCT, B 131 70 - 140 mg/dL 02/26/2025 8:02 PM CDT MKTO Blood 02/26/2025 8:02 PM CDT 02/26/2025 8:58 PM CDT us Generic [facility] POCT ORDERABLES-MANUAL Final Result [facility] [address] [place] [address] * (ABNORMAL) Glucose, POCT (02/26/2025 4:07 PM CDT) Glucose, POCT, B 168(H) 70 - 140 mg/dL 02/26/2025 4:07 PM CDT [facility] Blood 02/26/2025 4:07 PM CDT 02/26/2025 4:20 PM CDT us Generic [facility] POCT ORDERABLES-MANUAL Final Result [facility] [place] [address], [facility] MK[facility] [place] [address] * Wound Vac (02/26/2025 2:08 PM CDT) Narrative Vivian Smith R.N., LAKISHA - 02/26/2025 2:08 PM CDT Vivian Smith R.N., LAKISHA 02/26/2025 2:09 PM Wound Vac Performed by: Vivian Smith R.N., LAKISHA Authorized by: Ren Sung M.D. Care team members present 1. Martine Deluna R.N., CVinodCAmparoN. PROCEDURE DETAILS Type of wound vac procedure: [...] successful: yes Complications: no apparent complications us Ren Sung M.D. PROCEDURE/MINOR SURGICAL ORDER TOMY Final Result * Wound Vac (02/26/2025 2:06 PM CDT) Narrative Vivian Smith R.N., LAKISHA - 02/26/2025 2:06 PM CDT Vivian Smith R.N., LAKISHA 02/26/2025 2:08 PM Wound Vac Performed by: Vivian Smith R.N., LAKISHA Authorized by: Ren Sung M.D. Care team members present 1. Martine Deluna R.N., CSami PROCEDURE DETAILS Type of wound vac procedure: [...] - 140 mg/dL 02/26/2025 11:42 AM CDT [facility]TO Blood 02/26/2025 11:4 2 AM CDT 02/26/2025 11:49 AM CDT Result [facility] LAB POCT ORDERABLES-MANUAL Final Result Performing Organization Address City/[facility] Co de Phone Number [facility] [address] [place] [address], [facility] MKTO [facility] in [address] [address] * Glucose, POCT (02/26/2025 7:23 AM CDT) Glucose, POCT, B 126 70 - 140 mg/dL 02/26/2025 7:23 AM CDT [facility] Blood 02/26/2025 7:23 AM CDT 02/26/2025 7:32 AM CDT [email or web address][email or web address] POCT ORDERABLES-MANUAL Final Result Performing Organization Address City/[facility]/ZIP Co de Phone Number [facility] [address] [place] [address], [place] MKTO [facility] [place] [address] [place] [address] * (ABNORMAL) Comprehensive Metabolic Panel (02/26/2025 6:21 [...] Chand M.D. LAB BLOOD ADD-ON Final Result [facility] [address] [place] [address], [facility] MKTO [facility] [place] [address] [place] [address] * (ABNORMAL) CBC with Differential, Blood (02/26/2025 [...] Chand M.D. LAB BLOOD ADD-ON Final Result [facility] [address] [place] [address], [place] [address] * (ABNORMAL) Glucose, POCT (02/25/2025 8:17 PM CDT) Glucose, POCT, B 148(H) 70 - 140 mg/dL 02/25/2025 8:17 PM CDT [facility] Blood 02/25/2025 8:17 PM CDT 02/25/2025 8:49 PM CDT us Generic [facility] POCT ORDERABLES-MANUAL Final Result [facility] [address] [place] [address], [place] [address] * Glucose, POCT (02/25/2025 4:13 PM CDT) Glucose, POCT, B 134 70 - 140 mg/dL 02/25/2025 4:13 PM CDT [facility]TO Blood 02/25/2025 4:13 PM CDT 02/25/2025 4:19 PM CDT us Generic [facility] POCT ORDERABLES-[place] [address], [place] [address] * (ABNORMAL) Glucose, POCT (02/25/2025 11:22 AM CDT) Glucose, POCT, B 141(H) 70 - 140 mg/dL 02/25/2025 11:22 AM CDT MKTO Blood 02/25/2025 11:2 2 AM CDT 02/25/2025 11:30 AM CDT us Generic [facility] POCT ORDERABLES-MANUAL Final Result Performing Organization Address City/[facility] [place] [address], [place] [address] * (ABNORMAL) Hepatic Function Panel (02/25/2025 7:59 [...] 7:59 AM CDT 02/25/2025 8:04 AM CDT Nelson Chand M.D. LAB BLOOD ADD-ON Final Result [facility] [address] [place] [address], [facility] MKTO [facility] [place] [address] [place] [address] * (ABNORMAL) Basic Metabolic Panel (02/25/2025 7:59 [...] Chand M.D. LAB BLOOD ADD-ON Final Result [facility] [address] [place] [address], [place] MK[facility] [place] [address] [place] [address] * (ABNORMAL) CBC with Differential, Blood (02/25/2025 7:59 AM CDT) Hemoglobin 9.1(L) 13.2 - 16.6 g/dL 02/25/2025 [...] BLOOD ADD-ON Final Result Performing Organization Address City/[facility]/ZIP Co de Phone Number [facility] [address] [place] [address], [place] [address] * Glucose, POCT (02/25/2025 6:51 AM CDT) Glucose, POCT, B 127 70 - 140 mg/dL 02/25/2025 6:51 AM CDT MKTO Blood 02/25/2025 6:51 AM CDT 02/25/2025 6:59 AM CDT us Generic [facility] POCT ORDERABLES-MANUAL Final Result Performing Organization Address [facility] Co de Phone Number [facility] [address] [place] [address], [address] [address] * (ABNORMAL) Glucose, POCT (02/24/2025 9:29 PM CDT) Glucose, POCT, B 160(H) 70 - 140 mg/dL 02/24/2025 9:29 PM CDT MKTO Blood 02/24/2025 9:29 PM CDT 02/24/2025 9:37 PM CDT us Generic [facility] POCT ORDERABLES-MANUAL Final Result Performing Organization Address City/[facility]/ZIP Co de Phone Number [facility] [address] [place] [address], [address] [address] * Glucose, POCT (02/24/2025 5:07 PM CDT) Glucose, POCT, B 111 70 - 140 mg/dL 02/24/2025 5:07 PM CDT MKTO Blood 02/24/2025 5:07 PM CDT 02/24/2025 5:15 PM CDT us Generic [facility] POCT ORDERABLES-MANUAL Final Result [facility] [address] [place] [address], [facility] MKTO [facility] [place] [address] [place] [address] * CT NEG PRESS WND THRPY <=50SCM (02/24/2025 12:15 PM CDT) Narrative Paty Duque R.N., Vannesa, LAKISHA - 02/24/2025 12:15 PM CDT Paty Duque R.N., Vannesa, LAKISHA 02/24/2025 12:19 PM Wound Vac Performed [...] PROCEDURE/MINOR SURGICAL ORDERAB LES Final Result * CT NEG PRESS WND THRPY <=50SCM (02/24/2025 12:13 PM CDT) Narrative Paty Duque R.N., KeeC.NAmparo, LAKISHA - 02/24/2025 12:13 PM CDT Paty Duque R.N., Vannesa, LAKISHA 02/24/2025 12:15 PM Wound Vac Performed by: [...] Generic [facility] POCT ORDERABLES-MANUAL Final Result [facility] [place] [address], [place] TO [facility] in [address] [address] * Glucose, POCT (02/24/2025 5:44 AM CDT) Glucose, POCT, B 102 70 - 140 mg/dL 02/24/2025 5:44 AM CDT MKTO Blood 02/24/2025 5:44 AM CDT 02/24/2025 9:13 PM CDT us Generic [facility] POCT ORDERABLES-MANUAL Final Result Performing Organization Address City/[facility]/ZIP Co de Phone Number [facility] [address] [place] [address], [facility] [place] [address] [place] [address] * (ABNORMAL) Basic Metabolic Panel (02/24/2025 5:44 AM CDT) Pathologist [facility] Potassium, P 4.1 3.6 - 5.2 mmol/L [...] Chand M.D. LAB BLOOD ADD-ON Final Result [facility] [address] [place] [address], [facility] MKTO [facility] [place] [address] [place] [address] * (ABNORMAL) CBC with Differential, Blood (02/24/2025 [...] 5:44 AM CDT 02/24/2025 6:03 AM CDT Nelson Chand M.D. LAB BLOOD ADD-ON Final Result [facility] [address] [place] [address], [facility] [facility] [address] [place] [address] * (ABNORMAL) Hepatic Function Panel (02/24/2025 5:44 [...] 5:44 AM CDT 02/24/2025 6:03 AM CDT Nelson Chand M.D. LAB BLOOD ADD-ON Final Result [facility] [address] [place] [address], [facility] in [address] [address] * Glucose, POCT (02/23/2025 8:28 PM CDT) Glucose, POCT, B 132 70 - 140 mg/dL 02/23/2025 8:28 PM CDT MKTO Blood 02/23/2025 8:28 PM CDT 02/23/2025 8:36 PM CDT us Generic Rals LAB POCT ORDERABLES-MANUAL Final Result [facility] [address] [place] [address], [address] [address] * Glucose, POCT (02/23/2025 4:41 PM CDT) Glucose, POCT, B 92 70 - 140 mg/dL 02/23/2025 4:41 PM CDT MKTO Blood 02/23/2025 4:41 PM CDT 02/23/2025 4:51 PM CDT us Generic Rals LAB POCT ORDERABLES-MANUAL Final Result Performing Organization Address City/[facility]/ZIP Co de Phone Number [facility] [address] [place] [address], [facility] [address] [place] [address] * Glucose, POCT (02/23/2025 11:06 AM CDT) Glucose, POCT, B 113 70 - 140 mg/dL 02/23/2025 11:06 AM CDT MKTO Blood 02/23/2025 11:0 6 AM CDT 02/23/2025 12:11 PM CDT us Generic Rals LAB POCT ORDERABLES-MANUAL Final Result [facility] [address] [place] [address], [facility] [address] [place] [address] * Glucose, POCT (02/23/2025 8:11 AM CDT) Glucose, POCT, B 111 70 - 140 mg/dL 02/23/2025 8:11 AM CDT MKTO Blood 02/23/2025 8:11 AM CDT 02/23/2025 8:17 AM CDT us Generic Rals LAB POCT ORDERABLES-MANUAL Final Result [facility] [place] [address], [facility] MKTO [facility] [place] [address] [place] [id number] * (ABNORMAL) Basic Metabolic Panel (02/23/2025 6:17 [...] 6:17 AM CDT 02/23/2025 10:55 AM CDT Nelson Chand M.D. LAB BLOOD ADD-ON Final Result Performing Organization Address City/[facility]/ZIP Co de Phone Number [facility] [address] [place] [address] * (ABNORMAL) Uric Acid (02/23/2025 6:17 AM CDT) Uric Acid, P 10.9(H) 3.7 - 8.0 mg/dL 02/23/2025 8:52 AM CDT MKTO Blood (Blood, Venous) 02/23/2025 6:17 AM CDT 02/23/2025 8:40 AM CDT us Nelson Chand M.D. LAB BLOOD ADD-ON Final Result Performing Organization Address [facility] Co de Phone Number [facility] [address] [place] [address], [place] [address] * (ABNORMAL) Hepatic Function Panel (02/23/2025 6:17 [...] Chand M.D. LAB BLOOD ADD-ON Final Result [facility] [address] [place] [address], [address] [address] * Glucose, POCT (02/22/2025 9:06 PM CDT) Glucose, POCT, B 122 70 - 140 mg/dL 02/22/2025 9:06 PM CDT MKTO Blood 02/22/2025 9:06 PM CDT 02/22/2025 10:13 PM CDT us Generic Rals LAB POCT ORDERABLES-MANUAL Final Result Performing Organization Address [facility]/ZIP Co de Phone Number [facility] [address] [place] [address], [address] [address] * Glucose, POCT (02/22/2025 5:00 PM CDT) Glucose, POCT, B 140 70 - 140 mg/dL 02/22/2025 5:00 PM CDT MKTO Blood 02/22/2025 5:00 PM CDT 02/22/2025 5:21 PM CDT us Generic Rals LAB POCT ORDERABLES-MANUAL Final Result Performing Organization Address City/[facility]/ZIP Co de Phone Number [facility] [address] [place] [address], [place] [id number] [place] [address] * IR Percutaneous Cholecystostomy Tube Check (02/22/2025 [...] medications. Patient education provided by a care merchandise flow team member. Patient's family member was ready to learn with no apparent learning barriers were identified. Post-procedure care explained; patient's family member expressed understanding of the content. PROCEDURE DETAILS: Sedation: None. Sedation time: Not applicable. Estimated Blood Loss: None. TECHNIQUE: The indwelling 14 Bruneian drainage catheter was injected with contrast, and [...] current medications. Patient education provided by acare merchandise flow team member. Patient's family member was ready to learn with noapparent learning barriers were identified. Post-procedure care explained;patient's family member expressed understanding of the content. PROCEDURE DETAILS: Sedation: None. Sedation time: Not applicable. Estimated Blood Loss: None. TECHNIQUE: The indwelling 14 Bruneian drainage catheter was injected with contrast, andmultiple [...] duct sludge without causing hepatic ductal dilatation. Elder Barrientos M.D. IMG IR PROCEDURES Final [...] 3:13 PM CDT 02/22/2025 3:16 PM CDT Nelson Chand M.D. LAB BLOOD ADD-ON Final Result [facility] [address] [place] [address], [place] [address] * (ABNORMAL) Basic Metabolic Panel (02/22/2025 3:13 [...] Chand M.D. LAB BLOOD ADD-ON Final Result [facility] [address] [place] [address], [facility] [place] [address] * RAD US Joint Aspiration and or [...] medications. Patient education provided by a care merchandise flow team member. Patient's family member was ready to learn [...] current medications. Patient education provided by acare merchandise flow team member. Patient's family member was ready to learn [...] wrist joint aspiration. us Nelson Chand M.D. IMG US PROCEDURES Final Result * Crystal Identification, Body Fluid (02/22/2025 12:30 PM CDT) Crystal Specimen, Body Fluid Fluid, Synovial Fluid, Right Wrist 02/22/2025 12:48 PM CDT MKTO Crystal, Body Fluid SEE COMMENT 02/22/2025 2:25 PM CDT MKMARISOL Comment: Extracellular and Intracellular Monosodium Urate Crystals present. Fluid (Synovial Fluid, Right Wrist) 02/22/2025 12:30 PM CDT 02/22/2025 12:48 PM CDT us Nelson Chand M.D. LAB BODY FLUIDS AND STOOLS ORDER TOMY Final Result [facility] [address] [place] [address], [facility] MKTO [facility] in [address] [place] [address] * Cell Count and Differential, Body Fluid (02/22/2025 12:30 PM CDT) Fluid Type RightWrist 02/22/2025 2:18 PM CDT MKTO Gross Appearance Slightly Cloudy 02/22/2025 2:18 PM CDT MKTO Total Nucleated Cells 150 /mcL 02/22/2025 2:18 PM CDT MKTO Comment: ----REFERENCE VALUE---- Synovial: <150 Peritoneal: <500 Pleural: <500 Pericardial: <500 ----ADDITIONAL INFORMATION---- This test has been modified from the county health officer's instructions. Its performance characteristics were determined by [facility] in a manner consistent with CLIA requirements. [...] STOOLS ORDER TOMY Edited Result - Final [facility] [address] [place] [address], [place] MKTO [facility] in [address] [address] * Gram Stain (02/22/2025 12:30 PM CDT) Gram Stain No organisms seen. White blood cells present. Stain performed on concentrated cytospin preparation. 02/22/2025 2:13 PM CDT [facility] Fluid (Synovial Fluid, Right Wrist) 02/22/2025 12:30 PM CDT 02/22/2025 12:48 PM CDT Comment:Specimen Source Site : Fluid us Nelson Chand M.D. LAB MICROBIOLOGY - GENERAL ORDER TOMY Final Result Performing Organization Address City/[facility] Co de Phone Number [facility] [address] [place] [address], [place] [address] * Bacterial Culture, Anaerobic + Susceptibility (02/22/2025 12:30 PM CDT) Bacterial Culture, Anaerobic No growth after 7 days of incubation. 03/01/2025 7:49 AM CDT [facility] Fluid (Synovial Fluid, Right Wrist) 02/22/2025 12:30 PM CDT 02/22/2025 12:48 PM CDT Comment:Specimen Source Site : Fluid us Nelson Chand M.D. LAB MICROBIOLOGY - GENERAL ORDER TOMY Final Result Performing Organization Address [facility] Co de Phone Number [facility] [address] [place] [address], [address] [address] * Bacterial Culture, Aerobic + Susceptibility (02/22/2025 12:30 PM CDT) Bacterial Culture, Aerobic + Susc No growth after 5 days of incubation. 02/27/2025 6:42 AM CDT [facility] Fluid (Synovial Fluid, Right Wrist) 02/22/2025 12:30 PM CDT 02/22/2025 12:48 PM CDT Comment:Specimen Source Site : Fluid us Nelson Chand M.D. LAB MICROBIOLOGY - GENERAL ORDER TOMY Final Result Performing Organization Address [facility] Co de Phone Number [facility] [address] [place] [address], [place] [address] * (ABNORMAL) Glucose, POCT (02/22/2025 11:12 AM CDT) Glucose, POCT, B 146(H) 70 - 140 mg/dL 02/22/2025 11:12 AM CDT MKTO Blood 02/22/2025 11:1 2 AM CDT 02/22/2025 11:20 AM CDT Generic Rals LAB POCT ORDERABLES-MANUAL Final Result Performing Organization Address [facility] Co de Phone Number [facility] [address] [place] [address], [address] [address] * Glucose, POCT (02/22/2025 7:56 AM CDT) Glucose, POCT, B 137 70 - 140 mg/dL 02/22/2025 7:56 AM CDT MKTO Blood 02/22/2025 7:56 AM CDT 02/22/2025 8:08 AM CDT Generic Rals LAB POCT ORDERABLES-MANUAL Final Result Performing Organization Address City/[facility]/ZIP Co de Phone Number [facility] [address] [place] [address], [place] [address] * ECG 12 Lead (02/22/2025 6:47 AM CDT) Ventricular Rate ECG/Min [address] Interval 206 ms MUSE QRSD Interval 90 ms MUSE QT Interval 316 ms MUSE QTC Interval 403 ms MUSE P [place] 68 degrees MUSE R [place] 11 degrees MUSE T Wave [place] 69 degrees MUSE 02/22/2025 6:47 AM CDT [...] RSV, PCR Symptomatic (02/22/2025 5:02 AM CDT) Pathologist [facility] Influenza A, PCR Undetected Undetected 02/23/20 6:40 AM CDT MKTO Comment:Influenza A viral RN A absent. Influenza B, PCR Undetected Undetected 02/23/20 6:40 AM CDT MKTO Comment:Influenza B viral RN A absent. Respiratory Syncytial Virus, PCR Undetected Undetected 02/22/2025 6:40 AM CDT MKTO Comment:RSV RNA absent. SARS-Coronavirus -2, PCR Undetected Undetected 02/22/2025 6:40 AM CDT MKTO Comment: SARS-CoV-2 RNA absent. ----ADDITIONAL INFORMATION---- This RT-PCR test using the Xpert Xpress SARS-CoV-2/Flu/RSV assay ([employer] performed on the GeneXTeleport DX systems has received Emergency Use Authorization (EUA) by the U.S. Food and Drug Administration. Performance characteristics were verified by [facility] in a manner consistent with CLIA requirements. Fact sheets for this Emergency Use Authorization (EUA) assay can be found at the following links: For Healthcare Providers: https://www.fda.gov/media/144919/download For Patients: https://www.fda.gov/media/632132/download Specimen Source Swab, Nasopharynx 02/22/2025 5:08 AM CDT MKTO Swab (Nasopharynx) 02/22/2025 5:02 AM CDT 02/22/2025 5:08 AM CDT us Nneka Yañez M.D. LAB MICROBIOLOG Y - GENERAL ORDERABLES Final Result Performing Organization Address [facility]/ZIP Co de Phone Number [facility] [address] [place] [address], [place] [address] * Bacterial Culture, Aerobic + Susceptibility, Urine (02/22/2025 5:02 AM CDT) [facility] Urine Culture No growth after 1 day of incubation. 02/23/2025 8:47 AM CDT MKTO Urine (Urine, Indwelling Catheter) 02/22/2025 5:02 AM CDT 02/22/2025 5:11 AM CDT Comment:Specimen Source Site : Urine us Nneka SuarezBAmparoBShankar Austin LAB MICROBIOLOG Y - GENERAL ORDERABLES Final Result Performing Organization Address City/[facility]/ZIP Co de Phone Number [facility] [address] [place] [address], [place] [address] * (ABNORMAL) Urinalysis, Dipstick (02/22/2025 5:02 AM [...] 8.0 02/22/2025 5:17 AM CDT MKTO Specific Foster >1.035(A) 1.001 - 1.035 02/22/2025 5:17 AM CDT MKTO Urobilinogen 1.0 0.2 - 1.0 mg/dL 02/22/2025 5:17 AM CDT MKTO Urine (Urine, Midstream) 02/22/2025 5:02 AM CDT 02/22/2025 5:17 AM CDT us Nneka Yañez M.D. LAB URINE ORDER TOMY Final Result [facility] [address] [place] [address], [facility] MKTO [place] [address] * DX Knee Right 4+ Views (02/22/2025 [...] joint effusion. Chondrocalcinosis. Small suprapatellar spur. Nneka RaderBAmparoSShankar Christensen [facility] PROCEDURES Final Result * DX [...] although to a much lesser degree than [id number]. Nneka SuarezB.B.SShankar Christensen [facility] PROCEDURES Final Result * Bacteria / Bautista Culture, Blood #2 (02/22/2025 4:35 AM CDT) Bacteria/Vannessa da Culture, Blood No growth after 5 day/s of incubation. 02/27/2025 5:05 AM CDT MKTO Blood (Blood, Peripheral Draw) 02/22/2025 4:35 AM CDT 02/22/2025 4:48 AM CDT Comment:Specimen Source Site : Blood us Nneka Yañez M.D. LAB MICROBIOLOG Y - GENERAL ORDERABLES Final Result Performing Organization Address City/[facility]/ZIP Co de Phone Number [facility] [address] [place] [address], [address] [address] * Lactate for Sepsis with Reflex (02/22/2025 4:28 AM CDT) Lactate, B 1.9 0.5 - 2.2 mmol/L 02/22/2025 5:01 AM CDT [facility] Blood (Blood, Venous) 02/22/2025 4:28 AM CDT 02/22/2025 4:48 AM CDT us Nneka Yañez M.D. LAB BLOOD NON A DD-ON Final Result Performing Organization Address [facility] Co de Phone Number [facility] [address] [place] [address], [place] [address] * Bacteria / Bautista Culture, Blood #1 (02/22/2025 4:28 AM CDT) Bacteria/Vannessa da Culture, Blood No growth after 5 day/s of incubation. 02/27/2025 5:05 AM CDT [facility] Blood (Blood, Peripheral Draw) 02/22/2025 4:28 AM CDT 02/22/2025 4:48 AM CDT Comment:Specimen Source Site : Blood us Nneka Yañez M.D. LAB MICROBIOLOG Y - GENERAL ORDERABLES Final Result Performing Organization Address City/[facility]/ZIP Co de Phone Number [facility] [address] [place] [address], [place] MKTO [facility] [place] [address] [place] [address] * (ABNORMAL) Comprehensive Metabolic Panel (02/22/2025 4:28 [...] M.D. LAB BLOOD ADD-O N Final Result [facility] [address] [place] [address], [facility] MKTO [facility] [place] [address] [place] [address] * (ABNORMAL) CBC with Differential, Blood (02/22/2025 [...] ADD-O N Final Result Performing Organization Address City/[facility]/ZIP Co de Phone Number [facility] [address] [place] [address] * (ABNORMAL) Glucose, POCT (02/22/2025 1:28 AM CDT) [facility] Glucose, POCT, B 148(H) 70 - 140 mg/dL 02/22/2025 1:28 AM CDT MKTO Blood 02/22/2025 1:28 AM CDT 02/22/2025 1:35 AM CDT us Generic Rals LAB POCT ORDERABLES-MANUAL Final Result Performing Organization Address City/[facility] Co de Phone Number [facility] [address] [place] [address], [place] [address] documented in this encounter Visit Diagnoses Diagnosis [...] of 10, Starting on 02/22/25 at 0143 Given 02/22/2025 2:08 AM CDT 25 mcg ferrous sulfate tablet 65 mg of iron 65 mg of iron, oral, Daily with morning meal, First dose on 02/22/25 at 0800 Given 02/27/2025 8:15 AM CDT [...] mg (HaldoL) 2 mg, intramuscular, Once, On 02/22/25 at 0400, For 1 dose Given 02/22/2025 [...] mL/hr, Administer over 1 Hours, Once, On 02/22/25 at 1900, For 1 dose New Bag [...] Ringer's 50 mL/hr, intravenous, Continuous, Starting on 02/23/25 at 1145, For 24 hours Rate/Dose [...] needed, Between Consecutive Piggyback Medications, Starting on [facility] 02/22/25 at 0017, For 7 days, Infuse [...] infusion 75 mL/hr, intravenous, Continuous, Starting on [facility] 02/22/25 at 0200, For 12 hours Rate/Dose [...] zirconium cyclosilicate 10 gram packet 10 g (Devenma) 10 g, oral, Once, On 02/22/25 at 0545, For 1 dose Given 02/22/2025 5:42 AM CDT 10 g documented in this encounter Active and Recently Administered Medications Times are shown in CDT. Scheduled Medication Order 02/25/2025 02/26/2025 02/27/2025 allopurinoL tablet 100 mg (Zyloprim) 100 mg, oral, Daily, First dose on 02/22/25 at 0900 0812 (Given - Provider: Iris Garcia R.N.) 858 (Given - Provider: Acacia Archer R.N.) 814 (Given - Provider: Iris Figueredo R.N.) apixaban tablet 5 mg (Eliquis) 5 mg, oral, 2 times daily, First dose on 02/22/25 at 0900 0813 (Given - Provider: Iris Garcia R.N.)2113 (Given - Provider: Aislinn Isbell) 08 (Given - Provider: Acacia Archer R.N.)2009 (Given - Provider: Jaclyn Gates) 815 (Given - Provider: Iris Figueredo R.N.) atorvastatin tablet 80 mg (Lipitor) 80 mg, oral, Daily at bedtime, First dose on 02/22/25 at 2100 2113 (Not Given - Provider: Aislinn Isbell - Reason: Patient/family refused) 2008 (Given - Provider: Jaclyn Gates) bacitracin 500 unit/gram ointment 1 Application 1 Application, topical, 2 times daily, First dose on 02/22/25 at 0900 0813 (Given - Provider: Iris Garcia R.N.)2117 (Given - Provider: Aislinn Isbell) 08 (Given - Provider: Acacia Archer R.N.)2008 (Given - Provider: Jaclyn Gates) 14 (Given - Provider: Iris Figueredo R.N.) baclofen tablet 10 mg (LioresaL) 10 mg, oral, 2 times daily, First dose on 02/22/25 at 0900 0813 (Given - Provider: Iris Garcia R.N.)2114 (Given - Provider: Aislinn Isbell) 0859 (Given - Provider: Acacia Archer R.N.)2009 (Given - Provider: Jaclyn Gates) 0815 (Given - Provider: Iris Figueredo R.N.) diclofenac sodium 1 % gel 2 g (Voltaren) 2 g, topical, 4 times daily, First dose (after last modification) on Mon02/22/25 at 1200, Do not exceed 32 g [...] Patient/family refused)2118 (Given - Provider: Aislinn Isbell) 0859 (Given - Provider: Acacia Archer R.N.)115 (Given [...] Archer R.N.) 0814 (Given - Provider: Iris S Figueredo, R.N.) ferrous sulfate tablet 65 mg of [...] not met) 0751 (Not Given - Provider: Acacia Archer R.N. - Reason: Order parameters not met [...] Daily, First dose on Mon02/26/25 at 0900 08 (Given - Provider: Acacia Archer R.N.) 814 (Given - Provider: Iris Figueredo R.N.) loratadine tablet 10 mg (Claritin) 10 mg, [...] oral, 2 times daily, First dose on Mon02/23/25 at 0900, Hold if SBP < 100 or HR < 55 812 (Given - Provider: Iris Garcia R.N.)2114 (Given - Provider: Aislinn Isbell) 858 (Given - Provider: Acacia Archer R.N.)2009 (Given - Provider: Jaclyn Gates) 814 (Given - Provider: Iris Figueredo R.N.) pantoprazole DR tablet 40 mg (Protonix) 40 mg, oral, 2 times daily before morning and evening meals, First dose on 02/22/25 at 0700, Swallow whole. Do NOT crush, chew, or split tablet. 0614 (Given - Provider: Spring Salmerno R.N.)1501 (Given - Provider: Iris Garcia R.N.) 0620 (Given - Provider: Aislinn Isbell)1609 (Given - Provider: Shayna Noriega R.N.) 0544 (Given - Provider: Ange ClayNAmparo) sennosides tablet 8.6 mg (Senokot) 8.6 mg, oral, 2 times daily, First dose on 02/22/25 at 0900 0813 (Not Given - Provider: Iris Garcia R.N. - Reason: Patient/family refused)2113 (Given - Provider: Aislinn Isbell) 0859 (Given - Provider: Acacia Archer R.N.)2008 (Given - Provider: Jaclyn Gates) 0824 (Given - Provider: Iris Figueredo R.N.) sodium [...] maintain patency. 0814 (Given - Provider: Iris Garcia R.N.) 0900 (Given - Provider: Acacia Archer [...] documented as of this encounter Care Teams Medication Assistant Relationship Specialty Start Date End Date Jeff Reyes M.D. [address] [place] [address] [phone] PCP - General 03/14/24 documented as of this encounter
--- OUTSIDE RECORDS SUMMARY | 2025-02-22 00:35 | XMS_ITS | Encounter Summary ---
Author Organization [facility] Address [address] [place] [address] Care Team Providers Care Cylinder Honer Name Role Phone Jeff Reyes M.D. Primary Care Provider [phone] Encounter Details Date Type Department Care Team (Late st Contact Info) Description 02/22/2025 12:35 AM CDT Ancillary Procedure Department of Nursing Social History [...] partner or ex-partner? Patient unable to answer 02/22/2025 Within the last year, have y ou been humiliated or emotionally abused in other ways by your partner or ex-partner? Patient unable to answer 02/22/2025 Within the last year, have y ou been kicked, hit, slapped, or otherwise physically hurt by your partner or ex-partner? Patient unable to answer 02/22/2025 Within the last year, have y ou been raped or forced to have any kind of sexual activity by your partner or ex-partner? Patient unable to answer 02/22/2025 Hunger Vital Sign Answer Date Recorded Within the past 12 months, y ou worried that your food would run out before you got the money to buy more. Patient unable to answer 02/22/2025 Within the past 12 months, t he food you bought just didn't last and you didn't have money to get more. Patient unable to answer 02/22/2025 PRAPARE - Transportation Answer Date Re corded In the past 12 months, has l ack of transportation kept you from medical appointments or from getting medications? Patient unable to answer 02/22/2025 In the past 12 months, has l ack of transportation kept you from meetings, work, or from getting things needed for daily living? Patient unable to answer 02/22/2025 [facility] Utilities Answer Date Recorded In the past 12 months has th [employer] electric, gas, oil, or water company threatened to shut off services in your home? Patient unable to answer 02/22/2025 Housing Stability Answer Date Recorded What is your living situation today? Patient pauline ble to answer 02/22/2025 Education Answer Date Recorded What is the highest level of school you have completed or the highest degree you have received? 12th grade 10/18/2022 Sex and Gender Information Value Date Recorded Sex Assigned at Male 06/26/2018 4:20 PM HEEL SEAT LASTER Legal Sex Male 3:33 AM HEEL SEAT LASTER Gender Identity Not on file Sexual Orientation Not on file documented as of this encounter Plan of Treatment Upcoming Encounters Date Type Department Care Team (Latest Contact Info) Description 04/28/2025 1:00 PM CDT Comprehensive Visit Department of General Surgery in [place] [id number] [place] [phone] Roland Benson D.O. [address] [place] [phone] Discharge Disposition: Home or Self Care documented as of this encounter Procedures Procedure Name Priority Date/Time Associated Diagnosis Comments NURSING IMAGE EXAM Routine 02/22/2025 12 :35 AM CDT documented in this encounter Results * Buttock/Sacrum-Nursing Image Exam (02/22/2025 12:35 AM CDT) 02/22/2025 12:3 3 AM CDT Narrative IIMS - 02/22/2025 12:35 AM CDT This order has been created and auto-finalized [...] documented as of this encounter Care Teams Cylinder Honer Relationship Specialty Start Date End Date Jeff Reyes M.D. [address] [place] [phone] PCP - General 03/14/24 documented as of this encounter
--- OUTSIDE RECORDS SUMMARY | 2025-02-24 11:15 | XMS_ITS | Encounter Summary ---
Author Organization [facility] Address [address] [place] [address] Care Team Providers Care Travel Med Surg Rn Name Role Phone Jeff Reyes M.D. Primary Care Provider [phone] Encounter Details Date Type Department Care Team [...] daily living? Patient unable to answer 02/22/2025 [facility] Utilities Answer Date Recorded In the past 12 months has th [employer] electric, gas, oil, or water company threatened [...] Sex Assigned at Male 06/26/2018 4:20 PM ANTISQUEAK CHALKER Legal Sex Male 3:33 AM ANTISQUEAK CHALKER Gender Identity Not on file Sexual Orientation Not on file documented as of this encounter Plan of Treatment Upcoming Encounters Date Type Department Care Team (Latest Contact Info) Description 04/28/2025 1:00 PM CDT Comprehensive Visit Department of General Surgery in [place], [place] [address] [place] [address] Roland Benson D.O. [address] [place] [phone] Discharge Disposition: Home or Self Care documented [...] documented as of this encounter Care Teams Travel Med Surg Rn Relationship Specialty Start Date End Date Jeff Reyes M.D. [address] [place] [phone] PCP - General 03/14/24 documented as of this encounter
--- OUTSIDE RECORDS SUMMARY | 2025-02-24 11:20 | XMS_ITS | Encounter Summary ---
Author Organization [facility] Address [address] [place] [address] Care Team Providers Care Head End Desizing Machine Operator Name Role Phone Jeff Reyes M.D. Primary Care Provider [phone] Encounter Details Date Type Department Care Team (Late st Contact Info) Description 02/24/2025 11:20 AM CDT Ancillary Procedure Department of Wound [...] daily living? Patient unable to answer 02/22/2025 [facility] Utilities Answer Date Recorded In the past 12 months has th [employer] electric, gas, oil, or water company threatened [...] Sex Assigned at Male 06/26/2018 4:20 PM COATER ASSOCIATE Legal Sex Male 3:33 AM COATER ASSOCIATE Gender Identity Not on file Sexual Orientation Not on file documented as of this encounter Plan of Treatment Upcoming Encounters Date Type Department Care Team (Latest Contact Info) Description 04/28/2025 1:00 PM CDT Comprehensive Visit Department of General Surgery in [place], [place] [address] [place] [address] Roland Benson D.O. [address] [place] [address] Discharge Disposition: Home or Self Care documented as of this encounter Procedures Procedure Name Priority Date/Time Associated Diagnosis Comments WOUND OSTOMY IMAGE EXAM Routine 02/24/2025 11:17 AM CDT documented in this encounter Results * Lower Extremities 528-Wound Ostomy Image Exam (02/24/2025 11:17 AM CDT) 02/24/2025 11:1 4 AM CDT [...] documented as of this encounter Care Teams Head End Desizing Machine Operator Relationship Specialty Start Date End Date Jeff Reyes M.D. [address] [place] [phone] PCP - General 03/14/24 documented as of this encounter
--- OUTSIDE RECORDS SUMMARY | 2025-02-24 11:25 | XMS_ITS | Encounter Summary ---
Author Organization [facility] Address [address] [place] [address] Care Team Providers Care Cordage Sales Representative Name Role Phone Jeff Reyes M.D. Primary Care Provider [phone] Encounter Details Date Type Department Care Team [...] unable to answer 02/22/[address] [facility] Utilities Answer Date Recorded In the past 12 months has th [employer] electric, gas, oil, or water company threatened [...] Sex Assigned at Male 06/26/2018 4:20 PM POST ANESTHESIA ROOM NURSE Legal Sex Male 3:33 AM POST ANESTHESIA ROOM NURSE Gender Identity Not on file Sexual Orientation Not on file documented as of this encounter Plan of Treatment Upcoming Encounters Date Type Department Care Team (Latest Contact Info) Description 04/28/2025 1:00 PM CDT Comprehensive Visit Department of General Surgery in [place], [place] [address] [place] [address] Roland Benson D.O. [address] [place] [address] Discharge Disposition: Home or Self Care documented [...] documented as of this encounter Care Teams Cordage Sales Representative Relationship Specialty Start Date End Date Jeff Reyes M.D. [address] [place] [phone] PCP - General 03/14/24 documented as of this encounter
--- OUTSIDE RECORDS SUMMARY | 2025-02-26 13:15 | XMS_ITS | Encounter Summary ---
Author Organization [facility] Address [address] [place] [address] Care Team Providers Care Special Forces Senior Sergeant Name Role Phone Jeff Reyes M.D. Primary Care Provider [phone] Encounter Details Date Type Department Care Team (Late st Contact Info) Description 02/26/2025 1:15 PM CDT Ancillary Procedure Department of Wound Ostomy [...] daily living? Patient unable to answer 02/27/2025 [facility] Utilities Answer Date Recorded In the past 12 months has th [employer] electric, gas, oil, or water company threatened [...] Sex Assigned at Male 06/26/2018 4:20 PM STEREOPLOTTER OPERATOR Legal Sex Male 3:33 AM STEREOPLOTTER OPERATOR Gender Identity Not on file Sexual Orientation Not on file documented as of this encounter Plan of Treatment Upcoming Encounters Date Type Department Care Team (Latest Contact Info) Description 04/28/2025 1:00 PM CDT Comprehensive Visit Department of General Surgery in [place], [place] [address] [place] [address] Roland Benson D.O. [address] [place] [address] Discharge Disposition: Home or Self Care documented as of this encounter Procedures Procedure Name Priority Date/Time Associated Diagnosis Comments WOUND OSTOMY IMAGE EXAM Routine 02/26/2025 1:14 PM CDT documented in this encounter Results * Buttocks 527a-Wound Ostomy Image Exam (02/26/2025 1:14 PM CDT) 02/26/2025 1:12 PM CDT Narrative [facility]IMS - 02/26/2025 1:14 PM CDT This order has been created and [...] documented as of this encounter Care Teams Special Forces Senior Sergeant Relationship Specialty Start Date End Date Jeff Reyes M.D. [address] [place] [phone] PCP - General 03/14/24 documented as of this encounter
--- OUTSIDE RECORDS SUMMARY | 2025-02-26 13:40 | XMS_ITS | Encounter Summary ---
Author Organization [facility] Address [address] [place] [address] Care Team Providers Care Vehicle Care Specialist Name Role Phone Jeff Reyes M.D. Primary Care Provider [phone] Encounter Details Date Type Department Care Team [...] daily living? Patient unable to answer 02/27/2025 [facility] Utilities Answer Date Recorded In the past 12 months has th [employer] electric, gas, oil, or water company threatened [...] Sex Assigned at Male 06/26/2018 4:20 PM RHYTHMIC GYMNASTICS COACH Legal Sex Male 3:33 AM RHYTHMIC GYMNASTICS COACH Gender Identity Not on file Sexual Orientation Not on file documented as of this encounter Plan of Treatment Upcoming Encounters Date Type Department Care Team (Latest Contact Info) Description 04/28/2025 1:00 PM CDT Comprehensive Visit Department of General Surgery in [place], [place] [address] [place] [address] Roland Benson D.O. [address] [place] [phone] Discharge Disposition: Home or Self Care documented [...] documented as of this encounter Care Teams Vehicle Care Specialist Relationship Specialty Start Date End Date Jeff Reyes M.D. [address] [place] [phone] PCP - General 03/14/24 documented as of this encounter
--- OUTSIDE RECORDS SUMMARY | 2025-02-26 13:45 | XMS_ITS | Encounter Summary ---
Author Organization [facility] Address [address] [place] [address] Care Team Providers Care Edge Beader Name Role Phone Jeff Reyes M.D. Primary Care Provider [phone] Encounter Details Date Type Department Care Team [...] daily living? Patient unable to answer 02/27/2025 [facility] Utilities Answer Date Recorded In the past 12 months has th [employer] electric, gas, oil, or water company threatened [...] Sex Assigned at Male 06/26/2018 4:20 PM MORTGAGE BRANCH MANAGER Legal Sex Male 3:33 AM MORTGAGE BRANCH MANAGER Gender Identity Not on file Sexual Orientation Not on file documented as of this encounter Plan of Treatment Upcoming Encounters Date Type Department Care Team (Latest Contact Info) Description 04/28/2025 1:00 PM CDT Comprehensive Visit Department of General Surgery in [place], [place] [address] [place] [address] Roland Benson D.O. [address] [place] [phone] Discharge Disposition: Home or Self Care documented [...] documented as of this encounter Care Teams Edge Beader Relationship Specialty Start Date End Date Jeff Reyes M.D. [address] [place] [phone] PCP - General 03/14/24 documented as of this encounter
--- OUTSIDE RECORDS SUMMARY | 2025-02-27 09:45 | XMS_ITS | Encounter Summary ---
Author Organization [facility] Address [address] [place] [address] Care Team Providers Care Client Portfolio Manager Name Role Phone Jeff Reyes M.D. Primary Care Provider [phone] Encounter Details Date Type Department Care Team [...] daily living? Patient unable to answer 02/27/2025 [facility] Utilities Answer Date Recorded In the past 12 months has th [employer] electric, gas, oil, or water company threatened [...] Sex Assigned at Male 06/26/2018 4:20 PM PARKING ENFORCEMENT TECHNICIAN Legal Sex Male 3:33 AM PARKING ENFORCEMENT TECHNICIAN Gender Identity Not on file Sexual Orientation Not on file documented as of this encounter Plan of Treatment Upcoming Encounters Date Type Department Care Team (Latest Contact Info) Description 04/28/2025 1:00 PM CDT Comprehensive Visit Department of General Surgery in [place] [address] [place] [address] Roland Benson D.O. [address] [place] [phone] Discharge Disposition: Home or Self Care documented [...] documented as of this encounter Care Teams Client Portfolio Manager Relationship Specialty Start Date End Date Jeff Reyes M.D. [address] [place] [phone] PCP - General 03/14/24 documented as of this encounter
--- OUTSIDE RECORDS SUMMARY | 2025-03-04 08:29 | XMS_ITS | Encounter Summary ---
Author Organization [facility] Address [address] [place] [address] Care Team Providers Care Isolation Washer Name Role Phone Jeff Reyes M.D. Primary Care Provider [phone] Reason for Referral * MRI/CAT/PET Scan (Routine) - Closed Specialty Diagnoses / Procedures Referred By Jono donohue Referred To Contact Radiology Diagnoses Embolus Pulmonary (HCC) Procedures CT Chest Angiogram and Pulmonary Arteries with IV Contrast CT Chest Angiogram with IV Contrast Pablo Vo M.D. [address] [place] [address] Phone: tel: fax: [facility] Region Referral ID Status Reason Start Date Expiration Date Visits Re quested Visits Authorized [id number] Closed 11/14/2024 02/14/2026 1 1 Reason for Visit * MRI/CAT/PET Scan (Routine) - Closed Specialty Diagnoses / Procedures Referred By Jono donohue Referred To Contact Radiology Diagnoses Embolus Pulmonary (HCC) Procedures CT Chest Angiogram and Pulmonary Arteries with IV Contrast CT Chest Angiogram with IV Contrast Pablo Vo M.D. [address] [place] [address] Phone: tel: fax: [facility] Region Referral ID Status Reason Start Date Expiration Date Visits Re quested Visits Authorized [id number] Closed 11/14/2024 02/14/2026 1 1 Encounter Details Date Type Department Care Team (Latest Contact Info) Description 03/04/2025 8:29 AM CDT - 03/04/2025 11:59 PM CDT Hospital Encounter Department of Radiology in [place], [place] [address] [place] [address] Pablo Vo M.D. [address] [place] [phone] Embolus Pulmonary (HCC) Discharge Disposition: Home or [...] daily living? 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 [address] [place] [address] Discharge Disposition: Home or Self Care documented [...] documented as of this encounter Care Teams Isolation Washer Relationship Specialty Start Date End Date Jeff Reyes M.D. [address] [place] [phone] PCP - General 03/14/24 documented as of this encounter
--- OUTSIDE RECORDS SUMMARY | 2025-03-13 14:40 | XMS_ITS | Encounter Summary ---
Author Organization [facility] Address [address] [place] [address] Care Team Providers Care Wood Hacker Name Role Phone Jeff Reyes M.D. 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 [address] [place] [address] Phone: tel: fax: [facility] Region Referral ID Status Reason Start Date Expiration Date V isits Requested Visits Authorized [id number] Authorized 03/13/2025 06/13/2026 1 1 * Outpatient (Routine) - Authorized Specialty Diagnoses / Procedures Referred By Jono t Referred To Contact Oncology Pablo Vo M.D. [address] [place] [address] Phone: tel: [facility] Region Referral ID Status Reason Start Date Expiration Date V isits Requested Visits Authorized [id number] Authorized 03/13/2025 09/12/2026 1 1 Reason for Visit * Outpatient (Routine) - Closed Specialty Diagnoses / Procedures Referred By Contelly t Referred To Contact Oncology Pablo Vo M.D. [address] [place] [address] Phone: tel: fax: [facility] Region Referral ID Status Reason Start Date Expiration Date Visits Re quested Visits Authorized [id number] Closed 11/12/2024 05/14/2026 1 1 Encounter Details Date Type Department Care Team (Late st Contact Info) Description 03/13/2025 2:40 PM CDT Telemedicine Department of Oncology in [place], [place] [address] [phone] Pablo Vo M.D. [address] [place] [address] Embolus Pulmonary (HCC) (Primary Dx); [...] daily living? Patient unable to answer 02/27/2025 [facility] Utilities Answer Date Recorded [...] Sex Assigned at Male 06/26/2018 4:20 PM RADAR MECHANIC Legal Sex Male 3:33 AM RADAR MECHANIC Gender Identity Not on file Sexual Orientation Not on file documented as of this encounter Progress Notes * Pablo Vo M.D. - 03/13/2025 2:40 PM CDT CV VIDEO VISIT Consult conducted via real-time audio/video technology by Pablo oV M.D. in [facility] to the patient in Patient's Home PRIMARY CARE PHYSICIAN Jeff Reyes M.D. REQUESTING PROVIDER Pablo Vo M.D. [address] [place] [phone] REASON FOR VISIT Bilateral PE/DVT SUBJECTIVE HISTORY OF PRESENT ILLNESS Mr. Ramirez is a very pleasant 75 y.o. gentleman with a history of bilateral PE/DVT as follows: Oncology History Embolus Pulmonary (HCC) 08/08/2024 Initial Diagnosis Embolus Pulmonary (HCC) initially presented to [place] ER from [facility] with right lower quadrant pain directly transferred to [place] for further management of bilateral PE with [...] it. Otherwise, for an elective cholecystectomy, per [place] KASANDRA this was be considered as a relatively high-risk procedure withwhich apixaban would need to be held for 3 days prior to surgery. 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 I would therefore recommend repeating his CT chest angiogram and bilateral lower extremity DVT in July. Advance Care Planning Health Care Power of Java Systems Analyst: Discussed with Ren Ramirez daughter Malika 2. Treatment Goals: Reduce [...] Comprehensive Visit Department of General Surgery in [place], [place] [address] [place] [phone] Roland Benson D.O. [address] [place] [address] Discharge Disposition: Home or Self Care Scheduled [...] documented as of this encounter Care Teams Wood Hacker Relationship Specialty Start Date End Date Jeff Reyes M.D. [address] [place] [phone] PCP - General 03/14/24 documented as of this encounter
[2025-03-21] VITALS (21 sets, daily range): BP systolic 106–134; BP diastolic 39–54; PULSE 61–70; RESP 18; TEMP 36.3; O2SAT 93–98
--- OUTSIDE RECORDS SUMMARY | 2025-03-21 11:29 | XMS_ITS | Clinical Summary ---
Author Organization [facility] Address [facility] [place] [address] Care Team Providers Care Production Wood Craftsman Name Role Phone Birdie Taveras RN Unavailable [phone] Karrie Singer RN Unavailable [phone] Pcp, No Primary Care Provider Unavailabl [...] by mouth two times daily. 16 Tablet 5 Active oxyCODONE (ROXICODONE) 5 mg immediate release tabletIndicatio ns:Chronic ulcer of sacral region, unspecified ulcer stage (HC) Take 1 Tablet (5 mg) by mouth every 6 hours if needed for Pain. 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 Overview (02/06/2025): History of [place] Neurogenic bowel 05/26/2018 Primary hypertension 05/28/2015 Overview [...] Encounters Date Type Department Care Team Description 03/19/2025 Lab Requisition [facility] [phone] Carmenza Quiroz NP 03/14/2025 Lab Requisition [facility] [phone] Unknown, Doctor 03/13/2025 Lab Requisition [facility] [phone] Unknown, Doctor 03/07/2025 Lab Requisition [facility] [phone] Carmenza Quiroz NP 03/04/2025 8:32 AM CDT - 03/04/2025 11:59 PM CDT Hospital Encounter [facility] [address] [place] [address] Gilda Pablomirella Wilkins, [facility] 03/04/2025 Travel 03/03/2025 Lab Requisition [facility] [phone] Carmenza Quiroz NP 02/14/2025 Lab Requisition [facility] [phone] Carmenza Quiroz NP 02/12/[address] [facility] [address] [facility] [address] [place], [place] [id number] Bijan Khanna MD Error-please disregard (Error/) 02/06/2025 Travel 02/05/2025 11:52 PM CDT - 02/07/2025 5:37 PM CDT Hospital Encounter [facility] [address] [place] [address] [facility], [facility], MD Rubin Zaragoza Kirsten Elizabeth, DO [place], Erick José MD Chronic ulcer of sacral region, unspecified ulcer stage (HC) (Primary Dx) Discharge Disposition: Snf Facility 02/03/2025 Lab Requisition [facility] [phone] Carmenza Quiroz NP 01/20/2025 Lab Requisition [facility] [phone] Carmenza Quiroz SENIOR GAMEMASTER 01/14/2025 Lab Requisition [facility] [address] [place] [address] Carmenza Quiroz NP 12/30/2024 Lab Requisition [facility] [phone] Carmenza Quiroz SENIOR GAMEMASTER 12/23/2024 Lab Requisition [facility] [phone] Carmenza Quiroz, SENIOR GAMEMASTER from Last 3 Months Immunizations Immunization Administration Dates Next Due COVID-19 vaccine ([employer] NTech 30mcg/0.3mL) 12YO+ BIVALENT PF, MDV 05/17/2022 [...] st Contact Info) Description 06/02/2025 10:30 AM CLINICAL DOCUMENTATION MANAGER Office Visit [facility] [address] [place] [address] Markel Schultz MD [address] [place] [address] Health Maintenance Due Date Last Done Comments [...] EVENT Routine 03/12/2025 1: 28 PM CDT PATH TISSUE EXAM Routine 03/12/2025 1:28 PM CDT RED CELL MORPHOLOGY Routine 03/11/2025 [...] Doctor Unknown LAB BILL ONLY Final Result [facility] [address] [place] [address], * PATH TISSUE EXAM (03/12/2025 1:28 PM CDT) Case Report Pathology Report Case: [id number] Authorizing Provider: Unknown, Doctor Collected: 03/12/2025 1328 Ordering Location: [facility] Received: 03/13/2025 1607 Pathologist: Clay Carcamo MD Specimen: Right Buttock, buttock wound, stage 4 ulcer 03/17/2025 11:16 AM CDT [facility]OR[facility] Final Diagnosis A) BONE, RIGHT GLUTEUS, BIOPSY: 1. Soft tissue and periosteum with mixed inflammation 2. Scant fragments of bone with mixed inflammation 3. See comment 03/17/2025 11:16 AM CDT [facility]- ENTRAL LABORATORY at 1116 CDT Comment Minimal bone is available for assessment, which appears to show involvement by acute and chronic inflammation, although it is unclear if this represents osteomyelitis, or an embedding artifact. Correlation with imaging and culture data is recommended. 03/17/2025 11:16 AM CDT [facility] Clinical Information Per requisition: Assess for osteomyelitis, positive on MRI 03/17/2025 11:16 AM CDT [facility] Gross Description A) Received in formalin, labeled with the patient's name and bone biopsy R gluteus, is a 2.0 x 1.5 x 0.6 cm aggregate of softened sandoval-brown bone with minimal attached soft tissue. The specimen is entirely submitted following decalcification in 1 cassette. JKG 03/13/2025 03/17/2025 11:16 AM CDT [facility] Microscopic Description The final diagnosis is based on microscopic examination of appropriate sections of all specimens. 03/17/2025 11:16 AM CDT [facility] Additional Information Interpreted at [facility] - [address] [address] [facility] [address] [address] 03/17/2025 11:16 AM T [facility] Other (Right Buttock) 03/12/2025 1:28 PM CDT 03/13/2025 4:07 PM CDT us Doctor Unknown PATHOLOGY/CYTOLOGY Final Result [facility] [address] [place] [address], [place] * (ABNORMAL) CBC WITH AUTO DIFFERENTIAL (03/11/2025 8:23 AM CDT) Only the most recent of8 resultswithin the time period is included. WHITE BLOOD COUNT 12.5(H) 4.5 - 11.0 thou/cu mm 03/11/2025 10:42 AM [facility] RED BLOOD COUNT 3.71(L) 4.30 - 5.90 mil/cu mm 03/11/2025 10:42 AM T [facility] HEMOGLOBIN 9.4(L) 13.5 - 17.5 g/dL 03/11/2025 10:42 AM [facility] HEMATOCRIT 31.1(L) 37.0 - 53.0 % 03/11/2025 10:42 AM [facility] MCV 84 80 - 100 fL 03/11/2025 10:42 AM [facility] MCH 25.3(L) 26.0 - 34.0 pg 03/11/2025 10:42 AM [facility] MCHC 30.2(L) 32.0 - 36.0 g/dL 03/11/2025 10:42 AM [facility] RDW 16.9(H) 11.5 - 15.5 % 03/11/2025 10:42 AM [facility] PLATELET COUNT 278 140 - 440 thou/cu mm 03/11/2025 10:42 AM [facility] MPV 9.5 6.5 - 11.0 fL 03/11/2025 10:42 AM [facility] Blood BLOOD SPECIMEN / Unknown Butterfly / Unknown 03/11/2025 8:23 AM CDT 03/11/2025 9:36 AM CDT us Carmenza Quiroz SENIOR GAMEMASTER HEMATOLOGY Final Resul t [facility] [address] [place] [address] * (ABNORMAL) RED CELL MORPHOLOGY (03/11/2025 8:23 AM CDT) Only the most recent of3 resultswithin the time period is included. ELLIPTOCYTES Few 03/11/2025 10:42 AM CDT [facility] RBC COMMENT Present(A) RBC morphology appears normal, RBC morphology within normal limits for newborns. 03/11/2025 10:42 AM CDT [facility] LARGE PLATELETS Present 10:42 AM CDT [facility] Blood BLOOD SPECIMEN / Unknown Butterfly / Unknown 03/11/2025 8:23 AM CDT 03/11/2025 9:36 AM CDT Carmenza Quiroz NP HEMATOLOGY Final Resul t Performing Organization Address City/[facility] de Phone Number [facility] [address] [place] [address] * PLATELET ESTIMATE (03/11/2025 8:23 AM CDT) Only the most recent of3 resultswithin the time period is included. Pathologist [facility] PLATELET ESTIMATE Adequate Adequate, No estimate 03/11/2025 10:42 AM CDT [facility] Blood BLOOD SPECIMEN / Unknown Butterfly / Unknown 03/11/2025 8:23 AM CDT 03/11/2025 9:36 AM CDT Carmenza Quiroz NP HEMATOLOGY Final Resul t Performing Organization Address City/[facility]/ZIP Co de Phone Number [facility] [address] [place] [address] * (ABNORMAL) MANUAL DIFFERENTIAL (03/11/2025 8:23 AM CDT) Only the most recent of2 resultswithin the time period is included. Pathologist [facility] % NEUTROPHILS 76.0 % 03/11/2025 10:42 AM CDT [facility] % LYMPHOCYTES 21.0 % 03/11/2025 10:42 AM CDT [facility] % MONOCYTES 3.0 % 03/11/2025 10:42 AM T [facility] % EOSINOPHILS 0.0 % 03/11/2025 10:42 AM CDT [facility] % BASOPHILS 0.0 % 03/11/2025 10:42 AM T [facility] NEUTROPHILS ABSOLUTE 9.5(H) 1.7 - 7.0 thou/cu mm 03/11/2025 10:42 AM CDT [facility] LYMPHOCYTES ABSOLUTE 2.6 0.9 - 2.9 thou/cu mm 03/11/2025 10:42 AM CDT [facility] MONOCYTES ABSOLUTE 0.4 <0.9 thou/cu mm 03/11/2025 10:42 AM CDT [facility] EOSINOPHILS ABSOLUTE 0.0 <0.5 thou/cu mm 03/11/2025 10:42 AM [facility] BASOPHILS ABSOLUTE 0.0 <0.3 thou/cu mm 03/11/2025 10:42 AM [facility] Blood BLOOD SPECIMEN / Unknown Butterfly / Unknown 03/11/2025 8:23 AM CDT 03/11/2025 9:36 AM CDT us Carmenza Quiroz NP HEMATOLOGY Final Resul t [facility] [address] [place] [address] * (ABNORMAL) BASIC METABOLIC PANEL (03/11/2025 8:23 AM CDT) Only the most recent of7 resultswithin the time period is included. SODIUM 140 136 - 145 mmol/L 03/11/2025 10:10 AM [facility] POTASSIUM 3.7 3.5 - 5.1 mmol/L 03/11/2025 10:10 AM [facility] CHLORIDE 100 98 - 107 mmol/L 03/11/2025 10:10 AM [facility] CO2,TOTAL 28 22 - 29 mmol/L 03/11/2025 10:10 AM [facility] ANION GAP 12 5 - 18 03/11/2025 10:10 AM [facility] GLUCOSE 123(H) 70 - 99 mg/dL 03/11/2025 10:10 AM [facility] CALCIUM 9.2 8.8 - 10.4 mg/dL 03/11/2025 10:10 AM [facility] Comment: Reference ranges for this test were updated on 05/28/2024 to reflect our healthy population more accurately. Reference range changes are not retroactively applied to results, but previous results using the same methodology can be interpreted in the context of the new reference range. BUN 22 8 - 23 mg/dL 03/11/2025 10:10 AM [facility] CREATININE 0.73 0.70 - 1.20 mg/dL 03/11/2025 10:10 AM [facility] BUN/CREAT RATIO 30(H) 10 - 20 10:10 AM [facility] eGFR >90 >90 mL/min/1. 73m2 03/11/2025 10:10 AM [facility] Comment:As of 2021, eG FR is calculated by the CKD-EPI creatinine equation without race adjustment. eGFR can be influenced by muscle mass, exercise, and diet. The reported eGFR is an estimation only and is only applicable if the renal function is stable. Blood BLOOD SPECIMEN / Unknown Butterfly / Unknown 03/11/2025 8:23 AM CDT 03/11/2025 9:36 AM CDT us Carmenza Quiroz SENIOR GAMEMASTER CHEMISTRY Final Resul t [facility] [address] [place] [address] * CT CHEST PE STUDY (03/04/2025 9:07 AM CDT) Anatomical Region Laterality Modality CHEST, THORAX, HEART Computed To mography Pablo Vo [facility] CT Fin al Result * HEMOGLOBIN A1C (02/18/2025 7:15 AM CDT) Pathologist [facility] HEMOGLOBIN A1C SCREENING 6.3 <=6.4 % 02/18/2025 8:35 AM [facility] Blood BLOOD SPECIMEN / Unknown Butterfly / Unknown 02/18/2025 7:15 AM CDT 02/18/2025 8:19 AM CDT [facility] LABORATORY - 02/18/2025 8:35 AM CDT (<5.7%) Normal (5.7% to 6.4%) Indicates prediabetes (>=6.5%) Confirms diabetes Falsely low levels may be seen with: Recent Transfusion, Recent Significant Blood Loss, Hemolytic Diseases, or Falsely elevated levels may be seen with: Untreated Anemias, Splenectomy us Carmenza Quiroz SENIOR GAMEMASTER CHEMISTRY Final Resul t Performing Organization Address City/State/[facility] Co de Phone Number [facility] [address] [place] [address] * (ABNORMAL) HEPATIC FUNCTION PANEL (02/18/2025 7:15 AM CDT) Pathologist [facility] ALBUMIN 3.3(L) 4.0 - 4.9 g/dL 02/18/2025 8:54 AM [facility] PROTEIN,TOTAL 6.9 6.0 - 8.0 g/dL 02/18/2025 8:54 AM [facility] BILIRUBIN,TOTAL 0.5 0.0 - 1.2 mg/dL 02/18/2025 8:54 AM [facility] BILIRUBIN,DIRECT 0.3(H) 0.0 - 0.2 mg/dL 02/18/2025 8:54 AM [facility] BILIRUBIN,INDIRE CT 0.2 0.2 - 0.8 mg/dL 02/18/2025 8:54 AM [facility] ALK PHOSPHATASE 185(H) 40 - 129 IU/L 02/18/2025 8:54 AM [facility] ALT (SGPT) 39 10 - 50 IU/L 02/18/2025 8:54 AM CDT [facility] AST (SGOT) 37 10 - 50 IU/L 02/18/2025 8:54 AM CDT [facility] Blood BLOOD SPECIMEN / Unknown Butterfly / Unknown 02/18/2025 7:15 AM CDT 02/18/2025 8:19 AM CDT us Carmenza Quiroz NP CHEMISTRY Final Resul t [facility] [address] [place] [address] * (ABNORMAL) GLUCOSE METER (02/07/2025 7:58 AM CDT) Only the most recent of7 resultswithin the time period is included. GLUCOSE METER 146(H) 65 - 100 mg/dL 02/07/2025 7:58 AM CDT [facility] Blood BLOOD SPECIMEN / Unknown 02/07/2025 7:58 AM CDT 02/07/2025 7:58 AM CDT us Erick aLzaro MD CHEMISTRY Final Resu lt [facility] [address] [place] [address], [place] * WBC AM (02/07/2025 7:05 AM CDT) Only the most recent of2 resultswithin the time period is included. WHITE BLOOD COUNT 7.8 4.5 - 11.0 thou/cu mm 02/07/2025 7:20 AM CDT [facility] NRBC 0.0 % 02/07/2025 7:20 AM CDT [facility] ABS NRBC 0.0 thou /cu mm 02/07/2025 7:20 AM CDT [facility] Blood BLOOD SPECIMEN / Unknown Venipuncture / Unknown 02/07/2025 7:05 AM CDT 02/07/2025 7:11 AM CDT us Erick Lazaro MD HEMATOLOGY Final Resu lt [facility] [address] [place] [address], [place] * (ABNORMAL) Hemoglobin AM (02/07/2025 7:05 AM CDT) Only the most recent of3 resultswithin the time period is included. HEMOGLOBIN 9.6(L) 13.5 - 17.5 g/dL 02/07/2025 7:20 AM CDT [facility] MCV 84 80 - 100 fL 02/07/2025 7:20 AM CDT [facility] Blood BLOOD SPECIMEN / Unknown Venipuncture / Unknown 02/07/2025 7:05 AM CDT 02/07/2025 7:11 AM CDT us Erick Lazaro MD HEMATOLOGY Final Resu lt Performing Organization Address City/[facility] Co de Phone Number [facility] [address] [place] [address], [place] * Potassium AM (02/07/2025 7:04 AM CDT) Pathologist [facility] POTASSIUM 3.6 3.5 - 5.1 mmol/L 02/07/2025 7:46 AM CDT [facility] Blood BLOOD SPECIMEN / Unknown Venipuncture / Unknown 02/07/2025 7:04 AM CDT 02/07/2025 7:11 AM CDT us Erick Lazaro MD CHEMISTRY Final Resu lt [facility] [address] [place] [address], [place] * (ABNORMAL) Creatinine AM (02/07/2025 7:04 AM CDT) eGFR 90(L) >90 mL/min/1.7 3m2 02/07/2025 7:46 AM CDT [facility] Comment:As of 2021, eG FR is calculated by the CKD-EPI creatinine equation without race adjustment. eGFR can be influenced by muscle mass, exercise, and diet. The reported eGFR is an estimation only and is only applicable if the renal function is stable. CREATININE 0.87 0.70 - 1.20 mg/dL 02/07/2025 7:46 AM CDT [facility] Blood BLOOD SPECIMEN / Unknown Venipuncture / Unknown 02/07/2025 7:04 AM CDT 02/07/2025 7:11 AM CDT us Erick Lazaro MD CHEMISTRY Final Resu lt Performing Organization Address City/[facility]/ZIP Co de Phone Number [facility] [address] [place] [address], [place] * Magnesium AM (02/07/2025 7:04 AM CDT) MAGNESIUM 1.6 1.6 - 2.4 mg/dL 02/07/2025 7:46 AM CDT [facility] Blood BLOOD SPECIMEN / Unknown Venipuncture / Unknown 02/07/2025 7:04 AM CDT 02/07/2025 7:11 AM CDT us Erick Lazaro MD CHEMISTRY Final Resu lt Performing Organization Address City/[facility]/ZIP Co de Phone Number [facility] [address] [place] [address], [place] * PLATELET COUNT (02/06/2025 2:22 PM CDT) PLATELET COUNT 202 140 - 440 thou/cu mm 02/06/2025 2:45 PM CDT [facility] MPV 9.0 6.5 - 11.0 fL 02/06/2025 2:45 PM CDT [facility] Blood BLOOD SPECIMEN / Unknown Butterfly / Unknown 02/06/2025 2:22 PM CDT 02/06/2025 2:39 PM CDT Narrative [facility] - 02/06/2025 2:45 PM CDT Obtain before initiating IV heparin therapy if not done within previous 24 hours. Obtain before initiating IV heparin therapy if not done within previous 24 hours. Erick Lazaro MD HEMATOLOGY Final Resu lt Performing Organization Address City/[facility]/ZIP Co de Phone Number [facility] [address] [place] [address], [place] * APTT (02/06/2025 2:22 PM CDT) APTT 34 25 - 36 sec 02/06/2025 2:52 PM CDT [facility] Blood BLOOD SPECIMEN / Unknown Butterfly / Unknown 02/06/2025 2:22 PM CDT 02/06/2025 2:39 PM CDT Narrative [facility] - 02/06/2025 2:52 PM CDT Therapeutic Range: 59-89 seconds Erick Lazaro MD HEMATOLOGY Final Resu lt Performing Organization Address City/[facility]/ZIP Co de Phone Number [facility] [address] [place] [address], * (ABNORMAL) PROTIME-INR (02/06/2025 2:22 PM CDT) INR 1.3(H) <1.3 02/06/2025 2:52 PM CDT [facility] PROTIME 15.0(H) 10.6 - 12.4 sec 02/06/2025 2:52 PM CDT [facility] Blood BLOOD SPECIMEN / Unknown Butterfly / Unknown 02/06/2025 2:22 PM CDT 02/06/2025 2:39 PM CDT [facility] - 02/06/2025 2:52 PM [...] HEMATOLOGY Final Resu lt Performing Organization Address [facility] Co de Phone Number [facility] [address] [place] [address], [place] * SCAN CORRESP-EKG RESULTS (02/06/2025 1:33 PM CDT) Narrative 02/06/2025 1:33 PM CDT Ordered by an unspecified provider. Other Clinical Staff OTHER Final Resul t * (ABNORMAL) C-reactive protein (02/06/2025 9:10 AM CDT) Only the most recent of2 resultswithin the time period is included. C-REACTIVE PROTEIN 12.4(H) <0.5 mg/dL 02/06/2025 9:49 AM CDT [facility] Blood BLOOD SPECIMEN / Unknown Venipuncture / Unknown 02/06/2025 9:10 AM CDT 02/06/2025 9:25 AM CDT Roz Jewell MD CHEMISTRY Final Result Performing Organization Address [facility] de Phone Number [facility] [address] [address], [place] * TSH (01/14/2025 7:40 AM CDT) TSH 2.69 0.27 - 4.20 uIU/mL 01/14/2025 9:16 AM CDT [facility] Blood BLOOD SPECIMEN / Unknown Butterfly / Unknown 01/14/2025 7:40 AM CDT 01/14/2025 8:42 AM CDT Narrative [facility] - 01/14/2025 9:16 AM CDT In Adults, TSH values between 5.00 and 10.00 uIU/ml do not necessarily indicate the presence of Hypothyroidism. Correlation with clinical findings such as presence of goiter and/or Thyroperoxidase (TPO) Antibody may be helpful. For more information please refer to LUIGI 2004; 291: 228-238. Carmenza Quiroz NP CHEMISTRY Final Resul t Performing Organization Address [facility] Co de Phone Number [facility] [address] [place] [address] * ALT (SGPT) (01/14/2025 7:40 AM CDT) ALT (SGPT) 19 10 - 50 IU/L 01/14/2025 9:16 AM CDT [facility] Blood BLOOD SPECIMEN / Unknown Butterfly / Unknown 01/14/2025 7:40 AM CDT 01/14/2025 8:42 AM CDT Carmenza Quiroz SENIOR GAMEMASTER CHEMISTRY Final Resul t Performing Organization Address [facility] Co de Phone Number [facility] [address] [place] [address] * ALK PHOSPHATASE (01/14/2025 7:40 AM CDT) ALK PHOSPHATASE 85 40 - 129 IU/L 01/14/2025 9:16 AM CDT [facility] Blood BLOOD SPECIMEN / Unknown Butterfly / Unknown 01/14/2025 7:40 AM CDT 01/14/2025 8:42 AM CDT Carmenza Quiroz SENIOR GAMEMASTER CHEMISTRY Final Resul t Performing Organization Address [facility] Co de Phone Number [facility] [address] [place] [address] * (ABNORMAL) PRO-BNP (01/14/2025 7:40 AM CDT) PRO-BNP 1,544(H) <450 pg/mL 01/14/2025 9:19 AM CDT [facility] Blood BLOOD SPECIMEN / Unknown Butterfly / Unknown 01/14/2025 7:40 AM CDT 01/14/2025 8:42 AM CDT [facility] LABORATORY - 01/14/2025 9:19 AM CDT The [...] Quiroz NP SEND OUTS Final Resul t [facility] [address] [place] [address] from Last 3 Months Additional Health Concerns Infection Onset Date Last Indicated MDRO Clearance Comment:Infection Control Note: Hx of ESBL, surveillance criteria met, no need for further testing or isolation precautions. Do not delete or resolve the Infection Flag. 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 PCP - General 03/03/25 Birdie Taveras, RN [address] [id number] Water Resources Technical Officer - [facility] Registered Nurse 07/24/23 Karrie Singer, RN [address] [id number] Water Resources Technical Officer - [facility] Registered Nurse 07/24/23
--- OUTSIDE RECORDS SUMMARY | 2025-03-21 11:30 | XMS_ITS | Encounter Summary ---
Author Organization [facility] Address [address] [facility] 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 Disease [facility] [place] [address] [place] [address] Rl Evans MD [address] [place] [address], [facility] [address] [place], [place] [phone] documented as of this encounter Visit Diagnoses Not on filedocumented in this encounter Care Teams Specialties Operator Relationship Specialty Start Date End Date Bijan Crawford [place] [id number] [facility] [address] [place] [address] PCP - General Family Medicine 01/20/25 documented as of this encounter
--- OUTSIDE RECORDS SUMMARY | 2025-03-21 11:30 | XMS_ITS | Encounter Summary ---
Author Organization [facility] Address [address] [place] [address] Care Team Providers Care Subgrade Roller Operator Name Role Phone Jeff Reyes M.D. Primary Care Provider [phone] Encounter Details Date Type Department Care Team (Late st Contact Info) Description 02/25/2025 Orders Only [facility] Jeff Reyes M.D. [address] [place] [address] Social History Tobacco Use Types [...] daily living? Patient unable to answer 02/27/2025 [facility] Utilities Answer Date [...] Sex Assigned at Male 06/26/2018 4:20 PM FREIGHT RECEIVER Legal Sex Male 3:33 AM FREIGHT RECEIVER Gender Identity Not on file Sexual Orientation Not on file documented as of this encounter Plan of Treatment Upcoming Encounters Date Type Department Care Team (Latest Contact Info) Description 04/28/2025 1:00 PM CDT Comprehensive Visit Department of General Surgery in [place], [place] [address] [place] [phone] Roland Benson D.O. [facility] [place] [phone] Discharge Disposition: Home or Self Care documented as of this encounter Visit Diagnoses Not on filedocumented in this encounter Additional Health Concerns Assessment Noted Time PHQ-9 Depression Total Score: 10 05/26/2 018 11:00 AM CDT documented as of this encounter Care Teams Subgrade Roller Operator Relationship Specialty Start Date End Date Jeff Reyes M.D. [address] [place] [address] PCP - General 03/14/24 documented as of this encounter
--- OUTSIDE RECORDS SUMMARY | 2025-03-21 11:30 | XMS_ITS | Encounter Summary ---
Author Organization [facility] Address [address] [place] [address] Care Team Providers Care Broiler Manager Name Role Phone Jeff Reyes M.D. Primary Care Provider [phone] Reason for Visit * Reason Onset Date Comments Communication 03/14/2025 Regarding appoin tment in April Encounter Details Date Type Department Care Team (Latest Contact Info) Description 03/14/2025 Clinical Communication Department of General Surgery in [place], [place] [address] [place] [address] Roland Benson D.O. [address] [place] [phone] Communication (Regarding appointment in April) Social History [...] daily living? Patient unable to answer 02/27/2025 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 Per Hem Onc note from Dr Vo 03/13: Plan is to eventually proceed with a cholecystectomy. If at any point surgery is considered an emergency then he may proceed with it. Otherwise, for an elective cholecystectomy, per [place] KASANDRA this was be considered as a relatively high-risk procedure with which apixaban would need to be held for 3 days prior to surgery. 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 I would therefore recommend repeating his CT chest angiogram in bilateral lower extremity DVT. If urgent cholecytecotmy wt mary Coffman mayrahoodmorgan wait unol 07/2025 CT At this time, his surgery is not urgent or emergent. April consult date would be appropriate and surgery would be planned for July when patient can safely stop his Eliquis with residual PE. This was relayed to Nursing, Bekah who asked that we also relay this information to Lora the daughter. Bekah noted she would relay the information to Dr Crawford as well. Lora was informed of recommendation. 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 Bekah also felt Lora would be willing to document willingness to accept risk of stroke to proceed with surgery. However, our anesthesia team and surgeons would not accept this risk and would compete an elective jazmín during the recommended time frame into July 2025. Lora was upset with these recommendations, she was encouraged to attend the consult, and then daughter hung up. * Telephone Encounter - Dena Salinas R.N., CBCN - 03/19/2025 9:34 AM CDT LMTCB documented in this encounter Plan of Treatment Upcoming Encounters Date Type Department Care Team (Latest Contact Info) Description 04/28/2025 1:00 PM CDT Comprehensive Visit Department of General Surgery in [place], [place] [address] [place] [address] Roland Benson D.O. [address] [place] [address] Discharge Disposition: Home or Self Care documented as of this encounter Visit Diagnoses Not on filedocumented in this encounter Additional Health Concerns Assessment Noted Time PHQ-9 Depression Total Score: 10 11/03/2 018 11:00 AM CDT documented as of this encounter Care Teams Broiler Manager Relationship Specialty Start Date End Date Jeff Reyes M.D. [address] [place] [address] PCP - General 03/14/24 documented as of this encounter
--- OUTSIDE RECORDS SUMMARY | 2025-03-21 11:30 | XMS_ITS | Encounter Summary ---
Author Organization [facility] Address [address] [place] [address] Care Team Providers Care Donor Services Team Leader Name Role Phone Jeff Reyes M.D. Primary Care Provider [phone] Reason for Visit * Reason Onset Date Comments Nurse call back 01/31/2025 Encounter Details Date Type Department Care Team (Late st Contact Info) Description 01/31/2025 Clinical Communication Department of Oncology in [place], [place] [address] [place] [address] Pablo Vo M.D. [address] [place] [phone] Nurse call back Social History Tobacco Use [...] daily living? Patient unable to answer 02/27/2025 [facility] Utilities Answer Date Recorded In the past 12 months has [employer], gas, oil, or water [employer] threatened to shut off services in [...] Sex Assigned at Male 06/26/2018 4:20 PM BASTING CLEANER Legal Sex Male 3:33 AM BASTING CLEANER Gender Identity Not on file Sexual Orientation Not on file documented as of this encounter Plan of Treatment Upcoming Encounters Date Type Department Care Team (Latest Contact Info) Description 04/28/2025 1:00 PM CDT Comprehensive Visit Department of General Surgery in [place], [place] [address] [place] [phone] Roland Benson D.O. [address] [place] [phone] Discharge Disposition: Home or Self Care documented as of this encounter Visit Diagnoses Not on filedocumented in this encounter Additional Health Concerns Infection Onset Date Last Indicated Resolved Time COVID19 Pending 02/22/2025 02/22/2025 02/22/2025 6 :40 AM CDT Assessment Noted Time PHQ-9 Depression Total Score: 10 018 11:00 AM CDT documented as of this encounter Care Teams Donor Services Team Leader Relationship Specialty Start Date End Date Jeff Reyes M.D. [address] [place] [address] PCP - General 03/14/24 documented as of this encounter
--- OUTSIDE RECORDS SUMMARY | 2025-03-21 11:30 | XMS_ITS | Encounter Summary ---
Author Organization [facility] Address [address] [place] [address] Care Team Providers Care Garage Door Opener Installer Name Role Phone Jeff Reyes M.D. Primary Care Provider [phone] Reason for Visit * Reason Onset Date Comments OPAT 03/03/2025 Completion of th erapy Encounter Details Date Type Department Care Team (Latest Contact Info) Description 03/03/2025 Clinical Communication Department of Infectious Diseases in [address] [address] Roz Carlos R.N. OPAT (Completion [...] daily living? Patient unable to answer 02/27/2025 [facility] Utilities Answer Date Recorded In the past 12 months has th e [employer], gas, oil, or water company threatened to [...] Sex Assigned at Male 06/26/2018 4:20 PM PSYCHOLOGY INTERN Legal Sex Male 3:33 AM PSYCHOLOGY INTERN Gender Identity Not on file Sexual Orientation Not on file documented as of this encounter Miscellaneous Notes * Telephone Encounter - Roz Carlos R.N. - 03/03/2025 9:57 AM CDT Patient completed IV antimicrobial therapy on 03/01/2025. Patient's Midline will be removed today, 03/03/2025 by [facility] nursing staff - this was confirmed with [...] Comprehensive Visit Department of General Surgery in [place], [place] [address] [place] [phone] Roland Benson D.O. [address] [place] [phone] Discharge Disposition: Home or Self Care documented as of this encounter Visit Diagnoses Not on filedocumented in this encounter Additional Health Concerns Assessment Noted Time PHQ-9 Depression Total Score: 10 018 11:00 AM CDT documented as of this encounter Care Teams Garage Door Opener Installer Relationship Specialty Start Date End Date Jeff Reyes M.D. [address] [place] [phone] PCP - General 03/14/24 documented as of this encounter
--- OUTSIDE RECORDS SUMMARY | 2025-03-21 11:30 | XMS_ITS | Encounter Summary ---
Author Organization [place] Address [facility] [facility] 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 Gender Identity Not on file Sexual Orientation Not on file documented as of this encounter Plan of Treatment Upcoming Encounters Date Type Department Care Team (Late st Contact Info) Description 04/21/2025 2:00 PM CDT Office Visit [facility] Infectious Disease Clinic [place] [address] [place] [address] Rl Evans MD [address] [place] [address], [facility] [address] [place] [address] documented as of this encounter Visit Diagnoses Not on filedocumented in this encounter Care Teams Paperboard Machine Operator Relationship Specialty Start Date End Date Bijan Crawford [facility] [address] [facility] [address] [place] [address] PCP - General Family Medicine 01/20/25 documented as of this encounter
--- OUTSIDE RECORDS SUMMARY | 2025-03-21 11:30 | XMS_ITS | Encounter Summary ---
Author Organization [facility] Address [address] [place] [address] Care Team Providers Care Dog Show Judge Name Role Phone Jeff Reyes M.D. Primary Care Provider [phone] Encounter Details Date Type Department Care Team (Latest Contact Info) Description 08/07/2024 Intake [facility] Social History Tobacco Use Types Packs/Day Years Used Date Smoking Tobacco: Former Cigarettes Q uit: 1977 Passive Smoke Exposure: Never Alcohol Use Standard Drinks/Week Comments Not Currently 1 (1 standard drink = 0.6 oz pur e alcohol) [facility] Utilities Answer Date Recorded In the past 12 months has [employer], gas, oil, or water [employer] threatened to shut off services in your [...] your living situation today? [facility] 11/08/2024 Education Answer Date Recorded What is the highest level of school you have completed or the highest degree you have received? 12th grade 10/18/2022 Sex and Gender Information Value Date Recorded Sex Assigned at Male 06/26/2018 4:20 PM FUR CUTTER Legal Sex Male 3:33 AM FUR CUTTER Gender Identity Not on file Sexual Orientation Not on file documented as of this encounter Plan of Treatment Upcoming Encounters Date Type Department Care Team (Latest Contact Info) Description 04/28/2025 1:00 PM CDT Comprehensive Visit Department of General Surgery in [place], [place] [address] [place] [address] Roland Benson D.O. [address] [place] [address] Discharge Disposition: Home or Self Care documented as of this encounter Visit Diagnoses Not on filedocumented in this encounter Additional Health Concerns Infection Onset Date Last Indicated Resolved Time MDR GNB 10/24/2024 10/24/2024 10/27/2024 6:33 AM CDT Assessment Noted Time PHQ-9 Depression Total Score: 10 018 11:00 AM CDT documented as of this encounter Care Teams Dog Show Judge Relationship Specialty Start Date End Date Jeff Reyes M.D. [address] [address] PCP - General 03/14/24 documented as of this encounter
--- OUTSIDE RECORDS SUMMARY | 2025-03-21 11:30 | XMS_ITS | Encounter Summary ---
Author Organization [facility] Address [address] [place] [address] Care Team Providers Care Assistant Quality Manager Name Role Phone Jeff Reyes M.D. Primary Care Provider [phone] Reason for Visit * Reason Onset Date Comments Other 03/05/2025 Call Back Encounter Details Date Type Department Care Team (Latest Contact Info) Description 03/05/2025 Clinical Communication Department of Oncology in [place], [place] [address] [address] Pablo Vo M.D. [address] [place] [address] Other (Call Back) Social History [...] answer 02/27/2025 [facility] Utilities Answer Date Recorded In the past 12 months has [employer], gas, oil, or water [employer] threatened to shut off services in your [...] Sex Assigned at Male 06/26/2018 4:20 PM NATUROPATH Legal Sex Male 3:33 AM NATUROPATH Gender Identity Not on file Sexual Orientation Not on file documented as of this encounter Plan of Treatment Upcoming Encounters Date Type Department Care Team (Latest Contact Info) Description 04/28/2025 1:00 PM CDT Comprehensive Visit Department of General Surgery in [place], [place] [address] [place] [address] Roland Benson D.O. [address] [place] [phone] Discharge Disposition: Home or Self Care documented as of this encounter Visit Diagnoses Not on filedocumented in this encounter Additional Health Concerns Assessment Noted Time PHQ-9 Depression Total Score: 10 018 11:00 AM CDT documented as of this encounter Care Teams Assistant Quality Manager Relationship Specialty Start Date End Date Jeff Reyes M.D. [address] [place] [address] PCP - General 03/14/24 documented as of this encounter
--- OUTSIDE RECORDS SUMMARY | 2025-03-21 11:30 | XMS_ITS | Encounter Summary ---
Author Organization [facility] Address [address] [place] [address] Care Team Providers Care Gambling Box Person Name Role Phone Jeff Reyes M.D. Primary Care Provider [phone] Reason for Visit * Reason Onset Date Comments Post Hospital Follow-up 02/28/2025 IV antib iotics Encounter Details Date Type Department Care Team (Latest Contact Info) Description 02/28/2025 Clinical Communication Department of Infectious Diseases in [place], [place] [address] [place] [address] Matilda Hammer, R.N. [address] [place] [phone] Post Hospital Follow-up (IV antibiotics) Social History [...] daily living? Patient unable to answer 02/27/2025 [facility] Utilities Answer Date Recorded In the past 12 months has [employer], gas, oil, or water [employer] threatened to shut off services in your [...] Sex Assigned at Male 06/26/2018 4:20 PM DOUGHNUT MACHINE OPERATOR Legal Sex Male 3:33 AM DOUGHNUT MACHINE OPERATOR Gender Identity Not on file Sexual Orientation Not on file documented as of this encounter Miscellaneous Notes * Telephone Encounter - Matilda Hammer R.N. - 02/28/2025 10:27 AM CDT Reason for call Hospital discharge follow-up phone call with patient. Patient has been discharged on Outpatient Antimicrobial Therapy Monitoring (OPAT) Admission Date: Discharge Date: 02/22/2025 Discharge diagnosis: 02/27/2025 [facility] Outgoing phone call placed to [facility] in [place], [place] and spoke with patients nurse, Lucia. She stated patient, Ren Ramirez notes today is feeling the same than when he left the hospital. . Antibiotic Therapy Plan Ertapenem 1 g IV Q 24 last day of therapy March 01 Patient is receiving IV antibiotics at [facility] in [place], [place] and nursing is administering. Labs Monitoring labs for OPAT purposes: No labs needed. Line Care Patient was discharged with Midline. Line care will be completed weekly by nursing staff at [place], [place]. RN at facility to remove mid line upon completion of IV antibiotics. Rn will follow up if mid line removed, 03/01/2025 on 03/03/2025. Imaging NA Speciality Care Follow-Up NA Infectious Disease Follow-up Patient will follow-up in ID clinic on an as-needed basis. Teach-Back Completed: Yes Above information was reviewed with patients nurse during today's phone call. Plan as per [facility] Infectious Disease [phone] documented in this encounter Plan of Treatment Upcoming Encounters Date Type Department Care Team (Latest Contact Info) Description 04/28/2025 1:00 PM CDT Comprehensive Visit Department of General Surgery in [place], [place] [address] [place] [phone] Roland Benson D.O. [address] [place] [phone] Discharge Disposition: Home or Self Care documented as of this encounter Visit Diagnoses Not on filedocumented in this encounter Additional Health Concerns Assessment Noted Time PHQ-9 Depression Total Score: 10 018 11:00 AM CDT documented as of this encounter Care Teams Gambling Box Person Relationship Specialty Start Date End Date Jeff Reyes M.D. [address] [place] [phone] PCP - General 03/14/24 documented as of this encounter
--- OUTSIDE RECORDS SUMMARY | 2025-03-21 11:30 | XMS_ITS | Encounter Summary ---
Author Organization [facility] Address [address] [place] [address] Care Team Providers Care Shirt Ironer Supervisor Name Role Phone Jeff Reyes M.D. Primary Care Provider [phone] Encounter Details Date Type Department Care Team (Late st Contact Info) Description 02/21/2025 Clinical Communication Department of Oncology in [place], [place] [address] [place] [phone] Pablo Vo M.D. [address] [place] [phone] Social History Tobacco Use Types Packs/Day Years [...] daily living? Patient unable to answer 02/22/2025 [facility] Utilities Answer Date Recorded [...] Sex Assigned at Male 06/26/2018 4:20 PM UTILITY HAND Legal Sex Male 3:33 AM UTILITY HAND Gender Identity Not on file Sexual Orientation Not on file documented as of this encounter Plan of Treatment Upcoming Encounters Date Type Department Care Team (Latest Contact Info) Description 04/28/2025 1:00 PM CDT Comprehensive Visit Department of General Surgery in [place], [place] [address] [place] [address] Roland Benson D.O. [address] [place] [phone] Discharge Disposition: Home or Self Care documented as of this encounter Visit Diagnoses Not on filedocumented in this encounter Additional Health Concerns Infection Onset Date Last Indicated Resolved Time COVID19 Pending 02/22/2025 02/22/2025 02/22/2025 6 :40 AM CDT Assessment Noted Time PHQ-9 Depression Total Score: 10 018 11:00 AM CDT documented as of this encounter Care Teams Shirt Ironer Supervisor Relationship Specialty Start Date End Date Jeff Reyes M.D. [address] [place] [phone] PCP - General 03/14/24 documented as of this encounter
--- OUTSIDE RECORDS SUMMARY | 2025-03-21 11:31 | XMS_ITS | Clinical Summary ---
Author Organization [place] Address [facility]0 [facility] [place] [address] Care Team Providers Care Validation Leader Name Role Phone Bijan Crawford Primary Care Provider [phone] Rl Evans MD Unavailable [phone] Allergies Active Allergy Reactions Criticality Noted Date [...] Type Department Care Team Description 03/10/2025 Telephone [facility] Disease [facility] [address] [phone] Rl Evans MD conversation (Dr wants to discuss patient with Dr Evans) 02/25/2025 Documentation Only [facility] [address] [facility] [address] [place] [address] Aida Moya LSW Advance Care Planning 02/19/2025 3:00 PM CDT Office Visit [facility] Infectious Disease [address] [facility] [address] [place] [phone] Rl Evans MD Pressure injury of left buttock, stage 4 (H) 02/19/2025 Medical Correspondence [facility] [address] [place] [address] Sunshine, Non-Provider DR PORRAS 02/19/2025 Travel 02/12/2025 Medical Correspondence [facility] [address] [place] [address] Scan, Non-Provider [facility] 01/23/2025 Medical Correspondence [facility] Information [facility] [address] [facility] [address] [place] [address] Scan, Non-Provider [facility] 01/16/2025 Transcribe Orders GENERIC EXTERNAL DATA DEPARTMENT Stella Mejia MD Pressure ulcer (Primary Dx) from Last 3 Months Social History Tobacco Use Types Packs/Day Years Used Date Smoking Tobacco: Former Cigarettes Q uit: 07/24/1971 Smokeless Tobacco: Never Tobacco Cessation:Counseling Given: Not Answered Sex and Gender Information Value Date Recorded Sex Assigned at Not on file 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 Gender Identity Not on file Sexual Orientation [...] Description 04/21/2025 2:00 PM CDT Office Visit [facility] [address] [address] Rl Evans MD [address] [place] [address], [facility] [address] [place] [address] Health Maintenance Due Date Last [...] Associated Diagnosis Comments MICROBIOLOGY ISOLATE REFERRAL Routine 03/16/2025 9:45 PM CDT MICROBIOLOGY ISOLATE REFERRAL Routine 01/05/2025 11:40 AM CDT LAB RESULT - HIM SCAN 01/05/2025 12:[address] IMAGING - HIM SCAN 2025 12:00 AM CDT from Last 3 Months Results * (ABNORMAL) Microbiology Isolate Referral (03/16/2025 9:45 PM CDT) Only the most recent of2 resultswithin the time period is included. Culture Pseudomonas luteola(A) STACEY 03/20/2025 9:20 AM CDT [facility] Comment:Organism identified by client. Urine URINE SPECIMEN OBTAINED BY CLEAN CATCH PROCEDURE / Unknown Non-blood Collection / Unknown 03/16/2025 9:45 PM CDT 03/19/2025 9:42 AM CDT Narrative Organism Antibiotic Method Susceptibility Pseudomonas luteola Cefepime STACEY <=2 ug/mL: Susceptible Pseudomonas luteola Ceftazidime STACEY <=1 ug/mL: Susceptible Pseudomonas luteola Ciprofloxacin STACEY <=0.25 ug/mL: Susceptible Pseudomonas luteola Levofloxacin STACEY <=0.5 ug/mL: Susceptible Pseudomonas luteola Amikacin STACEY <=8 ug/mL: Susceptible Pseudomonas luteola Gentamicin STACEY <=2 ug/mL: Susceptible Pseudomonas luteola Tobramycin STACEY <=2 ug/mL: Susceptible Pseudomonas luteola Piperacillin/Tazobactam STACEY <=8 ug/mL: Susceptible Pseudomonas luteola Meropenem STACEY <=0.5 ug/mL: Susceptible Pseudomonas luteola Trimethoprim/Sulfame thoxaz ole STACEY <=2/38 ug/mL: Susceptible Comment:Antibiotics listed a s No Interpretation have no regulatory guidelines for susceptibility/resistance available. us Narinder Noe MD LAB - MICRO GENERAL ORDER TOMY Final Result [facility] Inf. Diseases Diag. Lab [address] [facility] [place] [address], [facility] * Lab Result - HIM Scan (01/05/2025 12:00 AM CDT) 01/05/2025 us Provider Outside NON-BEAKER LAB TESTING Final Result * CT Imaging - HIM Scan (2025 12:00 AM CDT) Anatomical Region Laterality Modality Computed Tomogra phy 2025 us Provider Outside IM CT ORDERABLES Final Result from Last 3 Months Insurance [employer] 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
--- OUTSIDE RECORDS SUMMARY | 2025-03-21 11:31 | XMS_ITS | Encounter Summary ---
Author Organization [place] Address [facility]0 [facility] 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 Gender Identity Not on file Sexual Orientation Not on file documented as of this encounter Plan of Treatment Upcoming Encounters Date Type Department Care Team (Late st Contact Info) Description 04/21/2025 2:00 PM CDT Office Visit [facility] Infectious Disease Clinic [address] [address] Rl Evans MD [address] [facility] [address] [place] [address] documented as of this encounter Visit Diagnoses Not on filedocumented in this encounter Care Teams Materials Handler Relationship Specialty Start Date End Date Bijan Crawford [place] [id number] [facility] [address] [place] [address] PCP - General Family Medicine 01/20/25 documented as of this encounter
--- OUTSIDE RECORDS SUMMARY | 2025-03-21 11:31 | XMS_ITS | Clinical Summary ---
Author Organization [facility] Address [address] [place] [address] Care Team Providers Care Centrifugal Casting Machine Tender Name Role Phone Jeff Reyes M.D. Primary Care Provider Source Comments Patient records contain information from all sites at [facility]. For routine questions regarding patient records, call [phone] during business hours, M-F 8:00 AM - 5:00 PM Central Time. 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 -Continue care cranberry 450 mg daily Failure Renal Acute (Acute Kidney Injury) 05/27/2018 10/19/2022 Non-ST Elevation Myocardial Infarction 05/26/2018 10/23/2019 Assessment & Plan (07/04/2018 10:14 AM EARLY CHILDHOOD LEAD TEACHER): 1. Continue aspirin 81 mg daily 2. [...] Clinical Communication Department of General Surgery in [place] [id number] [place] [address] Roland Benson D.O. Communication (Regarding appointment in April) 03/13/2025 2:40 PM CDT Telemedicine Department of Oncology in [place], [place] [address] [place] [address] Pablo Vo M.D. 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 Other (Call Back) 03/04/2025 8:29 AM CDT - 03/04/2025 11:59 PM CDT Hospital Encounter Department of Radiology in [place], [place] [address] [place] [address] Pablo Vo M.D. Embolus Pulmonary (HCC) Discharge Disposition: Home or Self Care 03/03/2025 Clinical Communication Department of Infectious Diseases in [address] [phone] Roz Carlos R.N. OPAT (Completion of therapy) 02/28/2025 Clinical Communication Department of Infectious Diseases in [address] [phone] Matilda Hammer R.N. Post Hospital Follow-up (IV antibiotics) 02/27/2025 9:45 AM CDT Ancillary Procedure Department of Oncology 02/26/2025 1:45 PM CDT Ancillary Procedure Department of Wound Ostomy 02/26/2025 1:40 PM CDT Ancillary Procedure Department of Wound Ostomy 02/26/2025 1:15 PM CDT Ancillary Procedure Department of Wound Ostomy 02/25/2025 Orders Only [facility] Jeff Sullivan M.D. 02/24/2025 11:25 AM CDT Ancillary Procedure Department of Wound Ostomy 02/24/2025 11:20 AM CDT Ancillary Procedure Department of Wound Ostomy 02/24/2025 11:15 AM CDT Ancillary Procedure Department of Wound Ostomy 02/22/2025 12:35 AM CDT Ancillary Procedure Department of Nursing 02/22/2025 - 02/27/2025 12:16 PM CDT Hospital Encounter [facility], Fourth Floor [address] [place] [phone] Nneka Thomas M.B.B.S., M.D. Xu, Qiping, M.D. Byrd, David W, M.D. 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 02/04/2025 12:11 PM CDT - 02/04/2025 1:42 PM CDT Hospital Encounter Department of Radiology in [place], [place] [address] [place] [address] Anuel Nunn M.D. Cholecystitis Discharge Disposition: Home or Self Care 01/31/2025 Clinical Communication Department of Oncology in [address] [phone] Pablo Vo M.D. Nurse call back 01/23/2025 5:26 PM CDT - 01/24/2025 12:38 AM CDT Emergency [facility] Emergency Department [address] [place] [phone] Ollie Walters M.D. 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 from Last 3 Months [...] daily living? Patient unable to answer 02/27/2025 [facility] Utilities Answer Date Recorded In the past 12 months has CME electric, gas, oil, or water [employer] threatened to shut off services in your [...] Sex Assigned at Male 06/26/2018 4:20 PM EARLY CHILDHOOD LEAD TEACHER Legal Sex Male 3:33 AM EARLY CHILDHOOD LEAD TEACHER Gender Identity Not on file Sexual [...] Comprehensive Visit Department of General Surgery in [place], [place] [address] [place] [address] Roland Benson D.O. [address] [place] [phone] Discharge Disposition: Home or Self Care Health [...] this topic Medical Devices Implanted Type Area Operator Engineer Device Identifier Shelf Expiration Date Model / Serial / Lot Scrw St 24pthrd 8.0x105 - [id number] Implanted:Qty : 1 on 12/15/2022 by Jana Don M.D. at [facility] Hardware e.g. pins/screws/ rods Right: [employer] [id number] [id number] / / Scrw Vthrd Fast 7.0x105 - [id number] Implanted:Qty : 2 on 12/15/2022 by Jana Don M.D. at [facility] Hardware e.g. pins/screws/ rods Right: [employer] [id number] [id number] / / Washr Flt 1.5x13 - [id number] Implanted:Qty : 4 on 12/15/2022 by Jana Don M.D. at [facility] Hardware e.g. pins/screws/ rods Right: [...] POCT, B Routine 02/24/2025 5:07 PM CDT ND NEG PRESS WND THRPY <=50SCM Routine 02/24/2025 12:15 PM CDT Pressure Ulcer Of Unspecified Site Stage 4 (HCC) ND NEG PRESS WND THRPY <=50SCM Routine 02/24/2025 [...] [place] Coronary Artery Without Angina Pectoris from Last [...] spine. Procedure Note Justin Gonzalez M.D. - 08/12/2025 EXAM: CT CHEST ANGIOGRAM AND PULMONARY ARTERIES [...] - 140 mg/dL 02/27/2025 11:38 AM CDT [facility] Blood 02/27/2025 11:3 8 AM CDT 02/27/2025 11:48 AM CDT Generic Rals LAB POCT ORDERABLES-MANUAL Final Result [facility] [address] [place] [address], [facility] MKTO [facility] in [address] [place] [address] * Place midline catheter (single lumen) (02/27/2025 [...] NON RAD IMAGING PROCE DURES Final Result [facility] NA * (ABNORMAL) Comprehensive Metabolic Panel (02/27/2025 [...] 6:37 AM CDT 02/27/2025 7:17 AM CDT Ren Sung M.D. LAB BLOOD ADD-ON Final Result [facility] [address] [place] [address], [facility] [place] [address] * Wound Vac (02/26/2025 2:08 PM CDT) [...] team members present 1. Martine Deluna R.N., Iman. PROCEDURE DETAILS Type of wound vac procedure: [...] IMAGING PROCE DURES Final Result [facility] NA * (ABNORMAL) CBC with Differential, Blood [...] 6:21 AM CDT 02/26/2025 6:58 AM CDT Nelson Chand M.D. LAB BLOOD ADD-ON Final Result Performing Organization Address [facility]/ZIP Co de Phone Number [facility] [address] [place] [address], [place] [address] * (ABNORMAL) Hepatic Function Panel (02/25/2025 7:59 [...] BLOOD ADD-ON Final Result Performing Organization Address City/[facility]/ZIP Co de Phone Number [facility] [address] [place] [address], [facility] in [address] [address] * (ABNORMAL) Basic Metabolic Panel (02/25/2025 7:59 AM CDT) Only the most recent of5 resultswithin the time period is included. Potassium, P 3.8 3.6 - 5.2 mmol/L [...] Chand M.D. LAB BLOOD ADD-ON Final Result [facility] [address] [place] [address], [facility] in [address] [address] * ND NEG PRESS WND THRPY <=50SCM (02/24/2025 12:15 [...] PROCEDURE/MINOR SURGICAL ORDERAB LES Final Result * ND NEG PRESS WND THRPY <=50SCM (02/24/2025 12:13 PM CDT) Narrative Paty Duque R.N., Vannesa, LILLIEON - 02/24/2025 12:13 PM CDT Paty Duque R.N., Vannesa, LILLIEON 02/24/2025 12:15 PM Wound Vac Performed by: Paty Duque R.N., Vannesa, CWEDNA Authorized by: Nelson Chand M.D. Care team [...] - 8.0 mg/dL 02/23/2025 8:52 AM CDT [facility] Blood (Blood, Venous) 02/23/2025 6:17 AM CDT 02/23/2025 8:40 AM CDT us Nelson Chand M.D. LAB BLOOD ADD-ON Final Result [facility] [address] [place] [address], [facility] in [place] [address] [place] [address] * IR Percutaneous Cholecystostomy Tube Check (02/22/2025 [...] medications. Patient education provided by a care teamcenter solution architect. Patient's family member was ready to learn with no apparent learning barriers were identified. Post-procedure care explained; patient's family member expressed understanding of the content. PROCEDURE DETAILS: Sedation: None. Sedation time: Not applicable. Estimated Blood Loss: None. TECHNIQUE: The indwelling 14 Polish drainage catheter was injected with contrast, and [...] current medications. Patient education provided by acare teamcenter solution architect. Patient's family member was ready to learn with noapparent learning barriers were identified. Post-procedure care explained;patient's family member expressed understanding of the content. PROCEDURE DETAILS: Sedation: None. Sedation time: Not applicable. Estimated Blood Loss: None. TECHNIQUE: The indwelling 14 Polish drainage catheter was injected with contrast, andmultiple [...] medications. Patient education provided by a care teamcenter solution architect. Patient's family member was ready to learn [...] current medications. Patient education provided by acare teamcenter solution architect. Patient's family member was ready to learn [...] MICROBIOLOGY - GENERAL ORDER TOMY Final Result [facility] [place] [address], [facility] in [address] [address] * Crystal Identification, Body Fluid (02/22/2025 12:30 [...] FLUIDS AND STOOLS ORDER TOMY Final Result [facility] [address] [place] [address], [place] MKTO [facility] in [place] [address] [place] [address] * Cell Count and Differential, Body Fluid (02/22/2025 12:30 PM CDT) Fluid Type RightWrist 02/22/2025 2:18 PM CDT MKTO Gross Appearance Slightly Cloudy 02/22/2025 2:18 PM CDT [facility] Total Nucleated Cells 150 /mcL 02/22/2025 2:18 PM CDT MKTO Comment: ----REFERENCE VALUE---- Synovial: <150 Peritoneal: <500 Pleural: <500 Pericardial: <500 ----ADDITIONAL INFORMATION---- This test has been modified from the plant custodian's instructions. Its performance characteristics were determined by [facility] in a manner consistent with CLIA requirements. [...] Edited Result - Final Performing Organization Address City/[facility]/ZIP Co de Phone Number [facility] [address] [place] [address], [address] [address] * Gram Stain (02/22/2025 12:30 PM CDT) Gram Stain No organisms seen. White blood cells present. Stain performed on concentrated cytospin preparation. 02/22/2025 2:13 PM CDT [facility] Fluid (Synovial Fluid, Right Wrist) 02/22/2025 12:30 PM CDT 02/22/2025 12:48 PM CDT Comment:Specimen Source Site : Fluid us Nelson Chand M.D. LAB MICROBIOLOGY - GENERAL ORDER TOMY Final Result Performing Organization Address [facility] Co de Phone Number [facility] [address] [place] [address], [facility] [address] [place] [address] * Bacterial Culture, Anaerobic + Susceptibility (02/22/2025 12:30 PM CDT) Bacterial Culture, Anaerobic No growth after 7 days of incubation. 03/01/2025 7:49 AM CDT [facility] Fluid (Synovial Fluid, Right Wrist) 02/22/2025 12:30 PM CDT 02/22/2025 12:48 PM CDT Comment:Specimen Source Site : Fluid us Nelson Chand M.D. LAB MICROBIOLOGY - GENERAL ORDER TOMY Final Result Performing Organization Address City/[facility]/ZIP Co de Phone Number [facility] [address] [place] [address], [address] [address] * ECG 12 Lead (02/22/2025 6:47 AM CDT) Only the most recent of2 resultswithin the time period is included. Ventricular Rate ECG/Min 98 BPM MUSE ND Interval 206 ms MUSE QRSD Interval 90 ms MUSE QT Interval 316 ms MUSE QTC Interval 403 ms MUSE P [place] 68 degrees MUSE R [place] 11 degrees MUSE T Wave [place] 69 degrees MUSE 02/22/2025 6:47 AM CDT [...] CDT) Influenza A, PCR Undetected Undetected 02/23/20 25 6:40 AM CDT MKTO Comment:Influenza A viral RN A absent. Influenza B, PCR Undetected Undetected 02/23/20 25 6:40 AM CDT MKTO Comment:Influenza B viral RN A absent. Respiratory Syncytial Virus, PCR Undetected Undetected 02/22/2025 6:40 AM CDT MKTO Comment:RSV RNA absent. SARS-Coronavirus -2, PCR Undetected Undetected 02/22/2025 6:40 AM CDT MKTO Comment: SARS-CoV-2 RNA absent. ----ADDITIONAL INFORMATION---- This RT-PCR test using the Xpert Xpress SARS-CoV-2/Flu/RSV assay ([employer] performed on the GeneXpert DX systems has received Emergency Use Authorization (EUA) by the U.S. Food and Drug Administration. Performance characteristics were verified by [facility] in a manner consistent with CLIA requirements. Fact sheets for this Emergency Use Authorization (EUA) assay can be found at the following links: For Healthcare Providers: https://www.[employer].gov/media/656041/download For Patients: https://www.fda.gov/media/709502/download Specimen Source Swab, Nasopharynx 02/22/2025 5:08 AM CDT MKTO Swab (Nasopharynx) 02/22/2025 5:02 AM CDT 02/22/2025 5:08 AM CDT Nneka Yañez M.D. LAB MICROBIOLOG Y - GENERAL ORDERABLES Final Result [facility] [address] [place] [address], [facility] MKTO [facility] [address] * (ABNORMAL) Urinalysis, Dipstick (02/22/2025 5:02 AM [...] 8.0 02/22/2025 5:17 AM CDT MKTO Specific [place] >1.035(A) 1.001 - 1.035 02/22/2025 5:17 AM CDT MKTO Urobilinogen 1.0 0.2 - 1.0 mg/dL 02/22/2025 5:17 AM CDT MKTO Urine (Urine, Midstream) 02/22/2025 5:02 AM CDT 02/22/2025 5:17 AM CDT us Nneka Yañez M.D. LAB URINE ORDER TOMY Final Result Performing Organization Address [facility]/[place] [address] * Bacterial Culture, Aerobic + Susceptibility, Urine (02/22/2025 5:02 AM CDT) Urine Culture No growth after 1 day of incubation. 02/23/2025 8:47 AM CDT MKTO Urine (Urine, Indwelling Catheter) 02/22/2025 5:02 AM CDT 02/22/2025 5:11 AM CDT Comment:Specimen Source Site : Urine us Nneka Yañez M.D. LAB MICROBIOLOG Y - GENERAL ORDERABLES Final Result Performing Organization Address City/[facility]/ZIP Co de Phone Number [facility] [address] [place] [address] * DX Knee Right 4+ Views (02/22/2025 [...] Chondrocalcinosis. Small suprapatellar spur. Nneka Yañez M.D. [facility] PROCED[facility] Final Result * DX [...] although to a much lesser degree than [id number]. Nneka RaderBShankar Austin [facility]ED[facility] Final Result * Bacteria / [place] Culture, Blood #2 (02/22/2025 4:35 AM CDT) Only the most recent of4 resultswithin the time period is included. Bacteria/Vannessa da Culture, Blood No growth after 5 day/s of incubation. 02/27/2025 5:05 AM CDT [facility] Blood (Blood, Peripheral Draw) 02/22/2025 4:35 AM CDT 02/22/2025 4:48 AM CDT Comment:Specimen Source Site : Blood us Nneka Yañez M.D. LAB MICROBIOLOG Y - GENERAL ORDERABLES Final Result Performing Organization Address [facility] Co de Phone Number [facility] [address] [place] [address] * Lactate for Sepsis with Reflex (02/22/2025 4:28 AM CDT) Only the most recent of2 resultswithin the time period is included. Pathologist [facility] Lactate, B 1.9 0.5 - 2.2 mmol/L 02/22/2025 5:01 AM CDT [facility] Blood (Blood, Venous) 02/22/2025 4:28 AM CDT 02/22/2025 4:48 AM CDT us Nneka Yañez M.D. LAB BLOOD NON A DD-ON Final Result Performing Organization Address [facility]/ZIP Co de Phone Number [facility] [address] [place] [address] * Buttock/Sacrum-Nursing Image Exam (02/22/2025 12:35 AM [...] IMAGING PROCE DURES Final Result [facility] NA * CT chest abdomen pelv w con-Outside CT Body (02/21/2025 1:15 PM CDT) Narrative [facility] - 02/21/2025 6:28 PM CDT This order has been created and auto-finalized to support the import of outside images. If available, original interpretation can be found on the Media Tab in Chart Review, in Document Viewer, as an image in InfinityView or as an Addendum. If a re-interpretation or overread is required please follow defined workflow. us Provider Not In System IMG CT PROCEDURES Final R esult Performing Organization Address [facility] Co de Phone Number [facility] NA * IR [...] male with history of cholecystitis requiring 14 Polish cholecystostomy catheter, routine 3 month exchange COMPARISON: [...] medications. Patient education provided by a care teamcenter solution architect. Patient was ready to learn with no apparent learning barriers were identified. Post-procedure care explained; patient expressed understanding of the content. PROCEDURE DETAILS: Sedation: None. Sedation time: Not applicable. Estimated Blood Loss: Less than 10 mL. TECHNIQUE: Imaging guidance for catheter exchange: Fluoroscopy with permanent image storage Access side: Right lateral abdomen intercostal transhepatic Catheter: 14 Polish 25 cm multipurpose pigtail drain Technique: The indwelling catheter was injected with contrast. A guidewire was inserted through the catheter, and the catheter was exchanged for a new 14 Polish catheter. Contrast was injected confirming the location [...] medications. Patient education provided by a care teamcenter solution architect. Patient was ready to learn withno apparent learning barriers were identified. Post-procedure careexplained; patient expressed understanding of the content. PROCEDURE DETAILS: Sedation: None. Sedation time: Not applicable. Estimated Blood Loss: Less than 10 mL. TECHNIQUE: Imaging guidance for catheter exchange: Fluoroscopy with permanent imagestorage Access side: Right lateral abdomen intercostal transhepatic Catheter: 14 Polish 25 cm multipurpose pigtail drain Technique: The indwelling catheter was injected with contrast. A guidewirewas inserted through the catheter, and the catheter was exchanged for anew 14 Polish catheter. Contrast was injected confirming the location [...] M.D. LAB URINE ORDERABLES Fin al Result [facility] [address] [place] [address], [place] DTL [facility] [address] [place] [address] * Microscopic Automated (01/23/2025 8:37 PM CDT) [...] ORDERABLES Fin al Result Performing Organization Address City/[facility]/ZIP Co de Phone Number [facility] [address] [place] [address] * pH, Urine (01/23/2025 8:37 PM CDT) [facility] pH, U 5.4 4.5 - 8.0 01/23/2025 9:0 3 PM CDT DT Urine 01/23/2025 8:37 PM CDT 01/23/2025 8:49 PM CDT us Chung Mehta M.D. LAB URINE ORDERABLES Fin al Result Performing Organization Address City/[facility]/ZIP Co de Phone Number [facility] [address] [facility] [address] [place] [address] * Osmolality, Urine (01/23/2025 8:37 PM CDT) Osmolality, U 409 150 - 1150 mOsm/kg 01/23/2025 9:03 PM CDT DTL Urine 01/23/2025 8:37 PM CDT 01/23/2025 8:49 PM CDT Chung Mehta M.D. LAB URINE ORDERABLES Fin al Result Performing Organization Address [facility] Co de Phone Number [facility] [address] [place], [place] [address] [address] [place] [address] * Urinalysis, with Microscopic: Urine, Catheter (01/23/2025 [...] M.D. LAB URINE ORDERABLES Fin al Result [facility] [address] [place] [address], [facility] DTL [facility] [address] [place] [address] * (ABNORMAL) Sedimentation Rate (01/23/2025 8:36 PM CDT) Sedimentation Rate, B 109(H) 3 - 28 mm/h 01/23/2025 9:29 PM CDT DTL Blood (Blood, Venous) 01/23/2025 8:36 PM CDT 01/23/2025 8:47 PM CDT us Chung Mehta M.D. LAB BLOOD ADD-ON Final R esult Performing Organization Address City/[facility]/ZIP Co de Phone Number [facility] [address] [place] [address], [address] [address] * (ABNORMAL) CRP (C-Reactive Protein) (01/23/2025 8:36 PM CDT) Pathologist [facility] C-Reactive Protein (CRP), S 124.8(H) <5.0 mg/L 01/23/2025 9:28 PM CDT DTL Blood (Blood, Venous) 01/23/2025 8:36 PM CDT 01/23/2025 9:01 PM CDT Chung Mehta M.D. LAB BLOOD ADD-ON Final R [facility] Performing Organization Address [facility] Co de Phone Number [facility] [address] [place] [address], [address] [address] * CT Abdomen Pelvis with IV Contrast [...] Possible chronic cystitis. us Ollie Walters M.D. IM CT PROCEDURES Final Result * Lactate, B (01/23/2025 6:55 PM CDT) [facility] Lactate, B 1.2 0.5 - 2.2 mmol/L 01/23/2025 7:05 PM CDT [facility] Blood (Blood, Venous) 01/23/2025 6:55 PM CDT 01/23/2025 7:02 PM CDT us Ollie Walters M.D. LAB BLOOD NON ADD-ON Final Res ult Performing Organization Address [facility]/ZIP Co de Phone Number [facility] [address] [place] [address], [facility] STMA [facility] [address] [place] [address] * (ABNORMAL) CBC without Differential (01/23/2025 6:55 PM CDT) [facility] Hemoglobin 10.6(L) 13.2 - 16.6 g/dL 01/23/2025 [...] BLOOD ADD-ON Final Result Performing Organization Address City/[facility]/ZIP Co de Phone Number [facility] [address] STMA [facility] [address] [place] [address] * Lipase (01/23/2025 6:55 PM CDT) Pathologist [facility] Lipase, S 16 13 - 60 U/L 01/23/2025 7: 42 PM CDT DTL Blood (Blood, Venous) 01/23/2025 6:55 PM CDT 01/23/2025 7:25 PM CDT Ollie Walters M.D. LAB BLOOD ADD-ON Final Result [facility] [address] [facility] [address] [place] [address] * (ABNORMAL) Lipid Panel (11/05/2024 9:32 AM CDT) Pathologist [facility] Triglycerides 348(H) mg/dL 11/05/2024 10:02 AM CDT [...] BLOOD ADD-ON Final Result Performing Organization Address City/State/[facility] Co de Phone Number [facility] [address] [place] [address], [place] OWAT [facility] [place] [address] [place] [address] from Last 3 Months or Most Recently Relevant to Health Maintenance Insurance MEDICA Advance Directives For more information, please contact: [phone] Documents on File Type Date Recorded Patient Field Attendant Expl anation Advance Directives 08/08/2024 6:58 AM [...] 5:41 PM 12/15/2022 11:01 AM Care Teams Centrifugal Casting Machine Tender Relationship Specialty Start Date End Date Jeff Reyes M.D. [facility] [place] [address] PCP - General 03/14/24
--- OUTSIDE RECORDS SUMMARY | 2025-03-21 11:32 | XMS_ITS | Encounter Summary ---
Author Organization [place] Address [address] [place] [address]. [place] [address] Care Team Providers Care Crm Marketing Specialist Name Role Phone Ty Bijan Leonidas Primary Care Provider [phone] Reason for Visit * Reason Onset Date Comments Advance Care Planning 02/25/2025 Encounter Details Date Type Department Care Team (Late st Contact Info) Description 02/25/2025 Documentation Only [facility] [address] [facility] [address] [place] [phone] Aida Moya, MANAGER PRACTICE [facility] [id number] [place], [place] [address] Advance Care Planning Social History Tobacco Use Types Packs/Day Years Used Date Smoking Tobacco: Former Cigarettes Q uit: 07/24/1971 Smokeless Tobacco: Never Sex and Gender Information Value Date Recorded Sex Assigned at Not on file Legal Sex Male 2:17 PM CORE MICROARCHITECT Gender Identity Not on file Sexual Orientation Not on file documented as of this encounter Plan of Treatment Upcoming Encounters Date Type Department Care Team (Late st Contact Info) Description 04/21/2025 2:00 PM CDT Office Visit [facility] [place] [address] [place] [address] Rl Evans MD [address] [facility] [address] [place], [place] [address] documented as of this encounter Visit Diagnoses Not on filedocumented in this encounter Care Teams Crm Marketing Specialist Relationship Specialty Start Date End Date Bijan Crawford [address] [place] [address] PCP - General Family Medicine 01/20/25 documented as of this encounter
--- OUTSIDE RECORDS SUMMARY | 2025-03-21 11:32 | XMS_ITS | Encounter Summary ---
Author Organization [place] Address [address] [place] [address]. 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 Gender Identity Not on file Sexual Orientation Not on file documented as of this encounter Plan of Treatment Upcoming Encounters Date Type Department Care Team (Late st Contact Info) Description 04/21/2025 2:00 PM CDT Office Visit [facility] [address] [address] Rl Evans MD [address] [place] [address], [facility] [address] [place], [place] [address] documented as of this encounter Visit Diagnoses Not on filedocumented in this encounter Care Teams Canal Superintendent Relationship Specialty Start Date End Date Bijan Crawford Leonidas [address] [place] [address] PCP - General Family Medicine 01/20/25 documented as of this encounter
--- OUTSIDE RECORDS SUMMARY | 2025-03-21 11:32 | XMS_ITS | Encounter Summary ---
Author Organization [place] Address [facility] [facility] [place] [address] Care Team Providers Care Presentation Designer Name Role Phone Bijan Crawford Primary Care Provider [phone] Rl Evans MD Unavailable [phone] Reason for Visit * Reason Onset Date Comments conversation 03/10/2025 wantnitza to disc uss patient with Dr Evans Encounter Details Date Type Department Care Team ([facility] Contact Info) Description 03/10/2025 [facility] [address] [address] Rl Evans MD [address] [facility] [address] [place] [address] conversation ( wants to discuss patient with Dr Evans) Social History Tobacco Use Types Packs/Day Years Used Date Smoking Tobacco: Former Cigarettes Q uit: 07/24/1971 Smokeless Tobacco: Never Sex and Gender Information Value Date Recorded Sex Assigned at Not on file 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 would like to talk to him about the patient. Please call her on cell phone. Number given. [phone] Action Taken: Message routed to: [facility] ID Travel Screening: Not Applicable Date of Service: documented in this encounter Plan of Treatment Upcoming Encounters Date Type Department Care Team (Late st Contact Info) Description 04/21/2025 2:00 PM CDT Office Visit [facility] [address] [phone] Rl Evans MD [address] [place] [address], [facility] [address] [place], [place] [address] documented as of this encounter Visit Diagnoses Not on filedocumented in this encounter Care Teams Presentation Designer Relationship Specialty Start Date End Date Bijan Crawford [address] [place], [place] [address] PCP - General Family Medicine 01/20/25 Rl Evans MD [address] [place] [address], [facility] [address] [place], [place] [id number] Assigned Infectious Disease Provider 03/15/25 documented as of this encounter
--- OUTSIDE RECORDS SUMMARY | 2025-03-21 11:34 | XMS_ITS | Patient Health Record ---
Author Organization [facility] Address [address] [facility] [address] [place] [address] Care Team Providers Care Carton Stenciler Name Role Phone Rubén Paez MD Primary Care Provider Melody Michael [place] Unavailable [phone] Reason For Referral No Information Social History Tobacco Use: Social History Observation Description Date Details (start date - stop date) Former Smoker NA - NA Tobacco Use/Smoking Question Answer Notes Are you a former smoker Section Notes: FAMILY HISTORY: HISTORY OF FAMILY PSYCH: Problems Problem Type SNOMED Code ICD Code Onset Dates Problem Status W/U Status Risk Notes Problem Tinea unguium (389287819) Tinea unguium (B35.1) Active confirmed Problem 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 (339374938) 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 confirmed Problem 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 Problem Pressure injury of right buttock stage III (disorder) (37073272593080 ) Pressure ulcer of right buttock, stage 3 (L89.313) Active confirmed Problem Pressure injury of right heel stage IV (disorder) (13121630515994 ) Pressure ulcer of right heel, stage 4 (L89.614) Active confirmed Plan Of Treatment No Information Insurance Providers Payer Name Payer Address Payer Phone Subscriber Number Group Number Insured Name Patient Relationship to Insured Coverage Start Date Coverage End Date [employer] [address] (Government Programs) [address] [address] [place], [place] [id number] Ren Ramirez Self - patient is the insured 7 [facility] Government Services/Med icare [address] [facility] [place] [address] [phone] [id number] Ren Ramirez Self - patient is the insured 3
--- NOTE | 2025-03-21 11:36 | ED.GENADULT ---
HPI - General Adult General Chief complaint: Nausea/Vomiting Stated complaint: Abdominal pain, abnormal labs Time Seen by Provider: 03/21/25 11:30 History of Present Illness HPI narrative: Patient presents to the emergency department complaining of abnormal labs. [facility] and had blood drawn. Patient is currently on anti biotics and was found to have a rising white count. Patient also has not been eating much recently and has been nauseous. 75-year-old man presenting to the emergency department via EMS noting nausea with some vomiting last night. Still nauseated now. Is thirsty. Denies any pain though with later questioning knowledge is some in discomfort in buttock/sacral area.. Noted shortness of breath. Last seen in this facility 4 days ago with altered mental status. Underlying history sacral ulcers on wound VAC and current antibiotics. Wound cultures from 03/12 showing Staph aureus and e coli. Currently receiving Levaquin apparently for urinary tract infection started on 03/17 and to continue through March 24. Urine culture from 03/16 looks to have grown Pseudomonas luteola which does look sensitive to levofloxacin. Open wound is primarily in the area of the left ischial tuberosity with chronic osteomyelitis. History of MS leaves him bedbound with paraplegia. Indwelling Eason. There is concern of increasing white count. On 03/12 for was 11.3 and yesterday was 14.6. Related Data Home Medications ?Medication ?Instructions ?Recorded ?Confirmed calcium carbonate (Zachary-Gest 400 mg PO BID PRN 08/07/24 03/21/25 Antacid) cholecalciferol (vitamin D3) 25 25 mcg PO DAILY 08/07/24 03/21/25 mcg (1,000 unit) tablet (Vitamin D3) furosemide 40 mg tablet 40 mg PO DAILY 08/07/24 03/21/25 lisinopril 40 mg tablet 40 mg PO DAILY 08/07/24 03/21/25 metoprolol succinate 100 mg 100 mg PO DAILY 08/07/24 03/21/25 tablet,extended release 24 hr pantoprazole 40 mg tablet,delayed 40 mg PO BID 08/07/24 03/21/25 release polyethylene glycol 3350 17 17 g PO DAILY 08/07/24 03/21/25 gram/dose oral powder apixaban 5 mg tablet (Eliquis) 5 mg PO BID 11/16/24 03/21/25 atorvastatin 80 mg tablet 80 mg PO HS 11/16/24 03/21/25 bacitracin 500 unit/gram topical 1 applic topical BID 11/16/24 03/21/25 ointment baclofen 10 mg tablet 10 mg PO BID 11/16/24 03/21/25 latanoprost 0.005 % eye drops 1 drp ophthalmic (eye) HS 11/16/24 03/21/25 sennosides 8.6 mg-docusate sodium 2 tab-cap PO DAILY PRN 11/16/24 03/21/25 50 mg tablet (Senna Plus) carbamide peroxide 6.5 % ear drops 5 drp otic (ear) Q7D PRN 11/17/24 03/21/25 (Ear Wax Removal Kit) clotrimazole 1 % topical cream 1 applic topical BID 12/12/24 03/21/25 acetic acid 0.25 % irrigation See Rx Instructions .Route BID 01/04/25 03/21/25 solution ferrous sulfate 325 mg (65 mg 325 mg PO Q48H 01/04/25 03/21/25 iron) tablet metformin 500 mg tablet,extended 1,000 mg PO QPM 01/04/25 03/21/25 release 24 hr oxycodone 5 mg tablet 5 mg PO Q6H PRN 01/04/25 03/21/25 sennosides 8.6 mg tablet (senna) 17.2 mg PO DAILY PRN 01/28/25 03/21/25 ondansetron HCl 4 mg tablet 4 mg PO BID 02/21/25 03/21/25 Previous Rx's ?Medication ?Instructions ?Recorded allopurinol 100 mg tablet 100 mg PO DAILY #30 tabs 11/19/24 Allergies Allergy/AdvReac Type Severity Reaction Status Date / Time Haemophilus B polysaccharide Allergy Unknown Verified 03/21/25 11:36 conj w vancomycin Allergy Unknown Verified 03/21/25 11:36 Review of Systems Status of ROS: Reports: 6 or more systems reviewed and unremarkable except as noted in History and below (Challenged by mental status I think) [facility] Medical History Chronic anticoagulation ?Z79.01 - group home (current) use of anticoagulants (ICD-10) History of pulmonary embolism ?Z86.711 - Personal history of pulmonary embolism (ICD-10) Paraplegia ?G82.20 - Paraplegia, unspecified (ICD-10) Lymphedema ?I89.0 - Lymphedema, not elsewhere classified (ICD-10) Diabetes mellitus ?E11.9 - Type 2 diabetes mellitus without complications (ICD-10) Stage III pressure ulcer of sacral region ?L89.153 - Pressure ulcer of sacral region, stage 3 (ICD-10) Stage III pressure ulcer of buttock ?L89.303 - Pressure ulcer of unspecified buttock, stage 3 (ICD-10) Pressure ulcer of coccygeal region, stage 1 ?L89.151 - Pressure ulcer of sacral region, stage 1 (ICD-10) Neurogenic bowel ?K59.2 - Neurogenic bowel, not elsewhere classified (ICD-10) Hyperuricemia ?E79.0 - Hyperuricemia without signs of inflammatory arthritis and tophaceous disease (ICD-10) Hyperlipidemia ?E78.5 - Hyperlipidemia, unspecified (ICD-10) Hypertension ?I10 - Essential (primary) hypertension (ICD-10) Coronary artery disease ?I25.10 - Atherosclerotic heart disease of platinum coronary artery without angina pectoris (ICD-10) Fracture, intertrochanteric, right femur ?S72.141A - Displaced intertrochanteric fracture of right femur, initial encounter for closed fracture (ICD-10) Sleep apnea ?G47.30 - Sleep apnea, unspecified (ICD-10) Eason catheter in place ?Z97.8 - Presence of other specified devices (ICD-10) Neurogenic bladder ?N31.9 - Neuromuscular dysfunction of bladder, unspecified (ICD-10) Obesity ?E66.9 - Obesity, unspecified (ICD-10) Multiple sclerosis ?G35 - Multiple sclerosis (ICD-10) Surgical History H/O insertion of cholecystostomy tube ?Z98.890 - Other specified postprocedural states (ICD-10) Family History Father Coronary artery disease High blood pressure High cholesterol Sleep apnea Social History Narrative: Resident of [facility]. Daughter Malika is healthcare power of assistant district attorney. Code status is DNR. Remote history of smoking What is your current living situation?: I presently have a place to live Problems where you live: no known problems Problems where you live details: NA In the past 12 months, utilities in danger of being shut off: no In past 12 months, lack of transportation kept you from medical appts, meetings, work, or getting things needed for daily living: no In the past 12 mos, have been you worried that your food would run out before you had money to buy more?: never true In the past 12 mos, the food you bought just didn't last and you didn't have money to buy more?: never true Highest level of school completed/degree received: 12th grade, no diploma Smoking Status: Former smoker What tobacco products do you use: cigarettes Smoking quit date/years: >15 years ago Do you use any of these nicotine containing products: None Second hand tobacco smoke exposure: No How often do you have a drink containing alcohol: never How often do you have six or more drinks on one occasion: Never AUDIT-C Alcohol total score: 0 Non-prescribed substance use: denies use Caffeine: Yes (tea and coffee) How often does anyone, including family, friends and others, physically hurt you: unable to answer How often does anyone, including family, friends and others, insult or talk down to you: unable to answer How often does anyone, including family, friends and others, threaten you with harm: unable to answer How often does anyone, including family, friends and others, scream or curse at you: unable to answer service: No Exam Narrative: Exam Narrative: Seems tired. Speaks methodically and very quietly. Demonstrating some difficulty in recall. Repeats himself as well. Breathing easily. Intermittent/rare cough. Mouth is a little sticky. No inflammatory changes. Cranial nerves 2-12 look intact. Pupils are 2 mm and equal. Head looks to be atraumatic. Able to raise both arms from the bed. More profound weakness in the lower legs. There is some chronic darkening of both lower legs. Does appear well-perfused however in the extremities. Generally with some muscle wasting. Heart in regular rate and rhythm. Abdomen is overweight soft and a little tender in the left upper quadrant. Genitourinary exam with indwelling Eason without surrounding inflammatory changes. Urine looks to be darker yellow but clear. Bag setting on abdomen draining sacral ulcers is darkish yellow brown transparent liquid. Need to get assist to sit examine backside. With staff assist able to roll to left side. Lungs are clear on auscultation. Wound VAC sites look to be without surrounding cellulitic change. General little erythematous over the lower back, sacrum, buttocks. With significant pallor, erythema or tenderness. Not cellulitic. A couple spots of small superficial skin breakdown in the sacral area. There is a Mepilex type dressing at the left upper inner buttock/sacrum. Cream has been applied over the sacral area. After exam was left propped onto his right side. Const: Vital Signs, click to edit/add: Vital Signs - 24 hr 03/21/25 11:31 03/21/25 13:26 03/21/25 13:27 Temperature 97.3 F L Pulse Rate 65 64 Pulse Rate [Right Pulse Oximeter] 61 Respiratory Rate 18 Blood Pressure 124/51 L Blood Pressure [Ri ght Upper Arm] 132/54 L Pulse Oximetry 97 94 94 Oxygen Delivery Me thod Room Air 03/21/25 13:30 03/21/25 13:31 03/21/25 13:36 Temperature Pulse Rate 64 63 64 Pulse Rate [Right Pulse Oximeter] Respiratory Rate Blood Pressure 115/48 L 117/48 L Blood Pressure [Ri ght Upper Arm] Pulse Oximetry 95 95 94 Oxygen Delivery Me thod 03/21/25 13:41 03/21/25 13:45 03/21/25 13:46 Temperature Pulse Rate 64 67 67 Pulse Rate [Right Pulse Oximeter] Respiratory Rate Blood Pressure 121/48 L 134/49 L Blood Pressure [Ri ght Upper Arm] Pulse Oximetry 93 96 96 Oxygen Delivery Me thod 03/21/25 13:52 03/21/25 13:56 03/21/25 14:01 Temperature Pulse Rate 66 70 67 Pulse Rate [Right Pulse Oximeter] Respiratory Rate Blood Pressure 123/45 L 123/50 L 127/47 L Blood Pressure [Ri ght Upper Arm] Pulse Oximetry 96 98 95 Oxygen Delivery Me thod 03/21/25 14:06 03/21/25 14:11 03/21/25 14:16 Temperature Pulse Rate 66 67 66 Pulse Rate [Right Pulse Oximeter] Respiratory Rate Blood Pressure 121/51 L 120/39 L 108/41 L Blood Pressure [Ri ght Upper Arm] Pulse Oximetry 95 94 94 Oxygen Delivery Me thod 03/21/25 14:17 03/21/25 14:21 03/21/25 14:26 Temperature Pulse Rate 65 65 70 Pulse Rate [Right Pulse Oximeter] Respiratory Rate Blood Pressure 110/43 L 124/53 L Blood Pressure [Ri ght Upper Arm] Pulse Oximetry 95 95 97 Oxygen Delivery Me thod 03/21/25 14:30 03/21/25 14:31 03/21/25 14:36 Temperature Pulse Rate 67 65 67 Pulse Rate [Right Pulse Oximeter] Respiratory Rate Blood Pressure 122/45 L 106/47 L Blood Pressure [Ri ght Upper Arm] Pulse Oximetry 98 95 94 Oxygen Delivery Me thod Documenting provider has reviewed patient's vital signs: yes Course Vital Signs Vital signs: Initial Vital Signs Temperature 97.3 F L 03/21/25 11:31 Temperature Source Temporal Artery Scan 03/21/25 11:31 Pulse Rate 61 03/21/25 11:31 Pulse Rhythm Regular 03/21/25 11:31 Pulse Strength 3+ Normal 03/21/25 11:31 Respiratory Rate 18 03/21/25 11:31 Blood Pressure 132/54 L 03/21/25 11:31 Blood Pressure Mean 80 03/21/25 11:31 Blood Pressure Position Sitting 03/21/25 11:31 Pulse Oximetry 97 03/21/25 11:31 Oxygen Delivery Method Room Air 03/21/25 11:31 Vital Signs Temperature 97.3 F L 03/21/25 11:31 Pulse Rate 61 03/21/25 11:31 Respiratory Rate 18 03/21/25 11:31 Blood Pressure 132/54 L 03/21/25 11:31 Pulse Oximetry 97 03/21/25 11:31 Oxygen Delivery Method Room Air 03/21/25 11:31 Temperature 97.3 F L 03/21/25 11:31 Pulse Rate 67 03/21/25 14:36 Respiratory Rate 18 03/21/25 11:31 Blood Pressure 106/47 L 03/21/25 14:36 Pulse Oximetry 94 03/21/25 14:36 Oxygen Delivery Method Room Air 03/21/25 11:31 Medications Administered Medications: Discontinued Medications Generic Name Dose Route Start Last Admin Trade Name Freq PRN Reason Stop Dose Admin Sodium Chloride 1,000 mls @ 1,000 mls/hr 03/21/25 12:14 03/21/25 14:43 0.9 % Sodium Chloride 1000 Ml IV 03/21/25 13:13 Infused .Q1H ONE Infusion Ondansetron HCl 4 mg 03/21/25 13:13 03/21/25 13:21 Ondansetron 2 Mg/Ml Inj IVP 03/21/25 13:14 4 mg ONCE ONE Administration Medical Decision Making MDM Narrative Medical decision making narrative: Will initiate standard lab collection. Looking for further more extensive evidence infection. Might not show typical outward signs. Blood cultures. Monitor vitals. Does not look as though MS is necessarily flaring. Perhaps with nonspecific viral illness, GI bug, viral gastritis? Did review imaging from 02/21/2025 CT chest abdomen pelvis showing unchanged cystic lesions in the liver, left renal mass, stable. Soft tissue defect at the level of the left ischial tuberosity with evidence of chronic osteomyelitis One-view chest x-ray independently reviewed by me looks to be without infiltrate. Reassessment at 1:10 p.m. notes himself to be feeling better. No longer with abdominal pain on reexamination. Demonstrating more energy. He has received at this point L normal saline. Maybe slightly nauseated yet. Will be given Zofran. Has been sipping on water. Will try more oral challenges remainder of labs come back. White count is normalized in today's labs. CRP is improved though still elevated. Other labs look to be at baseline. Regardless of what urine looks like, would wait for culture. Currently receiving Levaquin. Urinalysis would appear to be infected/colonized though without nitrate today. In this case would wait for cultures, further symptoms, to change any treatment recommendations. Does not appear that his wounds are worse. He has not been febrile. See patient discharge plan for further discussion Your labs were relatively reassuring here today. You seemed to improve with IV hydration. Have tolerated oral intake. Pending yet is your urinalysis which I do not think will change anything for you in the short term. We will however culture it and might need to alter your treatment plan. Continue levofloxacin at this point. Pending also is COVID swab. We will call if this is positive. Blood cultures are also pending. Focus on hydration. You do have Zofran available for nausea. Return for marked increase in pain, repeated vomiting, altered mental status, worsening weakness, fever. Medical Records Medical records reviewed: Yes I reviewed the patient's medical records Lab Data Lab results reviewed: Yes I reviewed the patient's lab results Labs: Lab Results 03/21/25 03/21/25 03/21/25 Range/Units 12:06 12:25 14:05 WBC 10.82 (4.50-11.00) K/uL RBC 3.68 L (4.30-5.90) m/uL Hgb 9.4 L (13.5-17.5) gm/dL Hct 31.1 L (37.0-53.0) % MCV 85 (80-100) fL MCH 26 (26-34) pg MCHC 30 L (32-36) gm/dL RDW Coeff of Rey 17.6 H (11.5-15.5) % Plt Count 209 (140-440) K/uL Neut % (Auto) 78.8 H (42.0-72.0) % Lymph % (Auto) 14.2 L (20-44) % Baldwin % (Auto) 5.7 (0.0-11.0) % Eos % (Auto) 0.6 (0.0-7.0) % Baso % (Auto) 0.1 (0.0-3.0) % Neut # (Auto) 8.50 H (1.7-7.0) K/uL Lymph # (Auto) 1.50 (0.90-2.90) K/uL Baldwin # (Auto) 0.60 (0.00-0.90) K/UL Eos # (Auto) 0.07 (0.00-0.50) K/uL Baso # (Auto) 0.01 (0.00-0.30) K/uL Abs Immat Gran (auto) 0.07 (0.00-0.30) K/uL Imm/Tot Granulo (auto) 0.6 % INR 1.64 H (0.91-1.10) APTT 50 H (23-33) Seconds Sodium 139 (135-149) mmol/L Potassium 3.8 (3.6-5.1) mmol/L Chloride 101 (96-114) mmol/L Carbon Dioxide 31 (20-32) mmol/L Anion Gap 7 (7-15) mEq/L BUN 37 H (7-30) mg/dL Creatinine 2.2 H (0.5-1.5) mg/dL Estimated GFR 30 ml/min Glucose 125 H (60-115) mg/dL Lactate 1.4 (0.5-1.9) mmol/L Calcium 9.5 (8.4-10.6) mg/dL Total Bilirubin 0.4 (0.1-1.5) mg/dL Direct Bilirubin 0.3 (0.0-0.5) mg/dL AST 21 (12-35) U/L ALT 17 (4-50) U/L Alkaline Phosphatase 159 H (40-150) U/L Troponin I < 0.01 (0.01-0.04) ng/mL C-Reactive Protein 12.9 H (0.5-1.0) mg/dL NT-Pro-B Natriuret Pep 876 H (See Note) pg/mL Total Protein 6.3 (6.0-8.3) g/dL Albumin 3.2 L (3.3-5.0) g/dL Urine Color Yellow (Yellow) Urine Appearance Cloudy A (Clear) Urine pH 6.5 (5.0-8.5) Ur Specific [place] 1.020 (1.000-1.030) Urine Protein 1+ A (Negative) Urine Glucose (UA) Negative (Negative) Urine Ketones Negative (Negative) Urine Blood 1+ A (Negative) Urine Nitrite Negative (Negative) Urine Bilirubin Negative (Negative) Urine Urobilinogen 0.2 (0.2-1.0) Ur Leukocyte Esterase 3+ A (Negative) Urine RBC >100 A (0-2) Urine WBC >100 A (0-5) Ur Squamous Epith Cells Few (None-Few) Urine Bacteria Many A (None) Urine Yeast Many A (None) SARS-CoV-2 (PCR) Negative SARS-CoV-2 (Negative) POC Troponin I 0.01 (0.01-0.04) ng/ml Discharge Plan Discharge Clinical Impression: Vomiting, Abdominal pain Patient Disposition: Home w/ Parent or Adult Condition: Improved Additional Instructions: Your labs were relatively reassuring here today. You seemed to improve with IV hydration. Have tolerated oral intake. Pending yet is your urinalysis which I do not think will change anything for you in the short term. We will however culture it and might need to alter your treatment plan. Continue levofloxacin at this point. Pending also is COVID swab. We will call if this is positive. Blood cultures are also pending. Focus on hydration. You do have Zofran available for nausea. Return for marked increase in pain, repeated vomiting, altered mental status, worsening weakness, fever. Prescriptions: No Action bacitracin 500 unit/gram ointment 1 applic topical BID sennosides-docusate sodium [Senna Plus] 8.6-50 mg tablet 2 tab-cap PO DAILY PRN Patient Comments: plus prn baclofen 10 mg tablet 10 mg PO BID Eliquis 5 mg tablet 5 mg PO BID atorvastatin 80 mg tablet 80 mg PO HS latanoprost 0.005 % drops 1 drp ophthalmic (eye) HS Rx Instructions: BOTH EYES Ear Wax Removal Kit 6.5 % drops 5 drp otic (ear) Q7D PRN Patient Comments: every Monday allopurinol 100 mg Tablet 100 mg PO DAILY Qty: 30 0RF clotrimazole 1 % cream 1 applic topical BID sennosides [senna] 8.6 mg tablet 17.2 mg PO DAILY PRN furosemide 40 mg tablet 40 mg PO DAILY metoprolol succinate 100 mg tablet extended release 24 hr 100 mg PO DAILY pantoprazole 40 mg tablet,delayed release (DR/EC) 40 mg PO BID calcium carbonate [Zachary-Gest Antacid] 200 mg calcium (500 mg) tablet,chewable 400 mg PO BID PRN polyethylene glycol 3350 17 gram/dose powder 17 g PO DAILY Patient Comments: plus prn lisinopril 40 mg tablet 40 mg PO DAILY cholecalciferol (vitamin D3) [Vitamin D3] 25 mcg (1,000 unit) tablet 25 mcg PO DAILY acetic acid 0.25 % solution See Rx Instructions .ROUTE BID Patient Comments: [NO ORIGINAL SIG] Rx Instructions: 1 APPLICATION twice a day AND PRN TO BUTTOCK WOUND oxycodone 5 mg tablet 5 mg PO Q6H PRN ferrous sulfate 325 mg (65 mg iron) Tablet 325 mg PO Q48H metformin 500 mg Tablet Extended Release 24 Hr 1,000 mg PO QPM ondansetron HCl 4 mg tablet 4 mg PO BID Follow Up/Referrals: Bijan Crawford MD [Primary Care Provider, Family Practice] Stand Alone Forms: MyHealth Info Instructions
--- NOTE | 2025-03-21 12:05 | CRLHL7_ITS ---
For Patients: As a result of the Century Cures Act, medical imaging exams and procedure reports are released immediately into your electronic medical record. You may view this report before your referring provider. If you have questions, please contact your health care provider. Indication: Leukocytosis Technique: Chest 1 view Comparison: Chest x-ray 11/16/2024 Findings/Impression: Cardiovascular and mediastinum: Heart size and vasculature are normal in caliber and appearance. Lungs and pleural space: Lungs are clear. No sign of infiltrate or mass. No sign of pleural effusion. No pneumothorax. Bones and soft tissues: No acute findings. Dictated by Amandeep Pena MD @ 03/21/2025 12:57:17 PM (Electronically Signed)
[2025-03-21 12:38] LABS: Lactate* 1.4 mmol/L (0.5-1.9)
[2025-03-21 12:42] LABS: Hematocrit 31.1 % (37.0-53.0); Hemoglobin* 9.4 gm/dL (13.5-17.5); Immature Granulocytes Abs Auto 0.07 K/uL (0.00-0.30); Immature Granulocytes Pct Auto 0.6 %; Lymphocytes Absolute Auto 1.50 K/uL (0.90-2.90); Mean Corpuscular HGB Conc 30 gm/dL (32-36); Mean Corpuscular Hemoglobin 26 pg (26-34); Mean Corpuscular Volume 85 fL (80-100); RDW Coefficient of Variation % 17.6 % (11.5-15.5); Red Blood Count 3.68 m/uL (4.30-5.90); White Blood Count* 10.82 K/uL (4.50-11.00)
[2025-03-21 12:43] LABS: Slide Review Reflex No
[2025-03-21 12:49] LABS: Troponin, Point-of-Care* 0.01 ng/ml (0.01-0.04)
[2025-03-21 12:58] LABS: Albumin* 3.2 g/dL (3.3-5.0); Chloride* 101 mmol/L (96-114)
[2025-03-21 12:59] LABS: Potassium* 3.8 mmol/L (3.6-5.1); Sodium* 139 mmol/L (135-149)
[2025-03-21 13:01] LABS: Blood Urea Nitrogen* 37 mg/dL (7-30); Creatinine* 2.2 mg/dL (0.5-1.5); Estimated Glomerular Filt Rate 30 ml/min
[2025-03-21 13:02] LABS: Alanine Aminotransferase* 17 U/L (4-50); Alkaline Phosphatase* 159 U/L (40-150); Anion Gap 7 mEq/L (7-15); Aspartate Amino Transferase* 21 U/L (12-35); Bilirubin Direct* 0.3 mg/dL (0.0-0.5); Bilirubin Total* 0.4 mg/dL (0.1-1.5); Calcium* 9.5 mg/dL (8.4-10.6); Carbon Dioxide* 31 mmol/L (20-32); Glucose* 125 mg/dL (60-115); Total Protein* 6.3 g/dL (6.0-8.3)
[2025-03-21 13:04] LABS: INR 1.64 (0.91-1.10); Prothrombin Time 20.5 Seconds
[2025-03-21 13:11] LABS: NT Pro B Type NatriureticPept* 876 pg/mL (See Note)
[2025-03-21] MEDS: ONDANSETRON 2 MG/ML inj 4 MG IVP (13:21)
[2025-03-21 14:15] LABS: Appearance Urine Cloudy (Clear)
[2025-03-21 14:59] LABS: SARS PCR* Negative SARS-CoV-2 (Negative)
== END 2025-03-21 14:56 | disposition home or self-care (01) ==
PROVIDERS: Emergency Provider Family Medicine; PCP Family Medicine
DX: R11.10 Vomiting, unspecified (principal); R10.9 Unspecified abdominal pain
CPT/HCPCS: 36415; 71045; 80048; 80076; 81001; 83605; 83880; 84484; 85025; 85610; 85730; 86140; 87040; 87086; 87186; 87635; 87800; 96374; 99283; 99284; J2405; J7030

== ENCOUNTER 2025-03-21 14:50 | Outpatient (CLI) | payer MEDICARE, SELFPAY | END 2025-03-21 14:51 | disposition home or self-care (01) | LOC: AMB 03-25 16:59 | PROVIDERS: PCP Family Medicine; Visit Provider Internal Medicine | DX: R10.9 Unspecified abdominal pain (principal); Z74.01 Bed confinement status | CPT/HCPCS: A0425; A0428 ==

== ENCOUNTER 2025-03-26 12:30 | Outpatient (CLI) | payer MEDICARE, SELFPAY | END 2025-03-26 12:31 | disposition home or self-care (01) | LOC: WOUND 12:30 | PROVIDERS: PCP Family Medicine; Visit Provider Surgery | DX: M86.68 Other chronic osteomyelitis, other site (principal); L89.324 Pressure ulcer of left buttock, stage 4; L89.152 Pressure ulcer of sacral region, stage 2; G35 Multiple sclerosis; G82.20 Paraplegia, unspecified; Z99.3 Dependence on wheelchair; I10 Essential (primary) hypertension | CPT/HCPCS: 97605 ==

== ENCOUNTER 2025-04-02 11:51 | Outpatient (CLI) | payer MEDICARE, SELFPAY | END 2025-04-02 11:52 | disposition home or self-care (01) | LOC: AMB 04-04 10:15 | PROVIDERS: PCP Family Medicine; Visit Provider Family Medicine | DX: R10.9 Unspecified abdominal pain (principal) | CPT/HCPCS: A0425; A0427 ==

== ENCOUNTER 2025-04-02 12:12 | Emergency (ER) | payer MEDICARE, SELFPAY ==
--- OUTSIDE RECORDS SUMMARY | 2025-02-19 15:00 | XMS_ITS | Encounter Summary ---
Author Organization [place] Address [facility] [place] [address] Care Team Providers Care Surgery Aid Name Role Phone Bijan Crawford Primary Care Provider [phone] Reason for Referral * Consultation (Priority: 1-2 Weeks) - Pending Review Specialty Diagnoses / Procedures Referred By Jono donohue Referred To Contact Plastic Surgery Diagnoses Pressure ulcer Rl Evans MD 420 [facility] [address] [place] [address] Phone: tel: fax: Referral ID Status Reason Start Date Expiration Date V isits Requested Visits Authorized [id number] Pending Review 02/19/2025 02/19/2026 1 1 Question Answer Is the reason for referral related to a cancer diagnosis or breast reconstruction? No My Clinical Question Is: He has sacral decubitus ulcer. Pls assess for management options. Thanks. Scheduling Instructions: [facility] will call you to coordinate your care as prescribed by your provider. If you don't hear from a senior sales representative within 2 business days, please call . Comments Please be aware that coverage of these services is subject to the terms and limitations of your health insurance plan. Call member services at your health plan with any benefit or coverage questions. [facility] will call you to coordinate your care as prescribed by your provider. If you don't hear from a senior sales representative within 2 business days, please call . Reason for Visit * Reason Comments Consult * Consultation (Routine) - Pending Review Specialty Diagnoses / Procedures Referred By Jono donohue Referred To Contact Infectious Diseases Diagnoses Pressure ulcer Stella Mejia MD [address] [place] [address] Phone: tel: fax: Referral ID Status Reason Start Date Expiration Date V isits Requested Visits Authorized [id number] Pending Review 01/16/2025 01/16/2026 1 1 Encounter Details Date Type Department Care Team ([facility] st Contact Info) Description 02/19/2025 3:00 PM CDT Office Visit [facility] Infectious Disease [address] [place] [address] Rl Evans MD 420 [facility] [address] [place] [address] Pressure injury of left buttock, stage 4 (H) Social History Tobacco Use Types Packs/Day Years Used Date Smoking Tobacco: Former Cigarettes Q uit: 07/24/1971 Smokeless Tobacco: Never Tobacco Cessation:Counseling Given: Not Answered Sex and Gender Information Value Date Recorded Sex Assigned at Not on file 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 [facility] INFECTIOUS DISEASE [address] [facility] [address] Patient: Ren Ramirez, Date of 1950 Date [...] cholecystectomy first. They will be going to [place] for his surgeon. PLAN: Plastic surgery referral. 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 Physical [...] Description 04/21/2025 2:00 PM CDT Office Visit [facility] Infectious Disease Clinic [address] [address] Rl Evans MD 420 [facility] [address] [place], [place] [address] Scheduled Referrals Name Type Priority Associated Diagnoses Orde r Schedule Adult Plastic Surgery Tank House Operator Helper Referral Referral Priority: 1-2 Weeks Pressure injury of left buttock, stage 4 (H) Expected: 02/19/2025 (Approximate), Expires: 02/19/2026 documented as of this encounter Visit Diagnoses Diagnosis Pressure injury of left buttock, stage 4 (H) documented in this encounter Care Teams Surgery Aid Relationship Specialty Start Date End Date Bijan Crawford [address] [place], [place] [address] PCP - General Family Medicine 01/20/25 documented as of this encounter
[2025-04-02] VITALS (22 sets, daily range): BP systolic 87–116; BP diastolic 36–45; PULSE 56–69; RESP 16; TEMP 36.4; O2SAT 96–100; BMI 29.0
--- OUTSIDE RECORDS SUMMARY | 2025-04-02 12:13 | XMS_ITS | Clinical Summary ---
Author Organization [place] Address [facility] [place] [address] Care Team Providers Care Hemstitching Machine Operator Name Role Phone Bijan Crawford Primary Care Provider [phone] Rl Evans MD Unavailable [phone] Allergies Active Allergy Reactions Criticality Noted Date [...] Type Department Care Team Description 03/10/2025 Telephone [facility] [address] [phone] Rl Evans MD conversation (Dr wants to discuss patient with Dr Evans) 02/25/2025 Documentation Only [facility] [address] [facility] [address] [place] [address] Aida Moya LSW Advance Care Planning 02/19/2025 3:00 PM CDT Office Visit [facility] Infectious Disease [address] [facility] [address] [place] [phone] Rl Evans MD Pressure injury of left buttock, stage 4 (H) 02/19/2025 Medical Correspondence [facility] [employer] [address] [place] [address] Sunshine, Non-Provider DR PORRAS 02/19/2025 Travel 02/12/2025 Medical Correspondence [facility] [employer] [address] [place] [address] Scan, Non-Provider [facility] 01/23/2025 Medical Correspondence [facility] Information Management [address] [facility] [address] [place] [address] Scan, Non-Provider [facility] 01/16/2025 Transcribe Orders GENERIC EXTERNAL DATA DEPARTMENT Stella Mejia MD Pressure ulcer (Primary Dx) from Last 3 Months Social History Tobacco Use Types Packs/Day Years Used Date Smoking Tobacco: Former Cigarettes Q uit: 07/24/1971 Smokeless Tobacco: Never Tobacco Cessation:Counseling Given: Not Answered Sex and Gender Information Value Date Recorded Sex Assigned at Not on file 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 Diseases Diag. Lab [address] [facility] [place] [address], [facility] * Lab Result - HIM Scan (01/05/2025 12:00 AM CDT) 01/05/2025 us Provider Outside NON-BEAKER LAB TESTING Final Result * CT Imaging - HIM Scan (2025 12:00 AM CDT) Anatomical Region Laterality Modality Computed Tomogra phy 2025 us Provider Outside IM CT ORDERABLES Final Result from Last 3 Months Insurance [employer] [facility] [employer] [facility] [employer] Advance Directives For more information, please contact: [phone] Documents on File Type Date Recorded Patient Telemetry Nurse Expl anation Advance Directives and Livin g Will 02/25/2025 POLST 01/26/2023 Care Teams Hemstitching Machine Operator Relationship Specialty Start Date End Date Bijan Crawford [address] [place], [place] [id number] PCP - General Family Medicine 01/20/25 Rl Evans MD [address] [facility], [facility] [address] [place], [place] [phone] Assigned Infectious Disease Provider 03/15/25
--- OUTSIDE RECORDS SUMMARY | 2025-04-02 12:13 | XMS_ITS | Encounter Summary ---
Author Organization [place] Address [facility] 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 Gender Identity Not on file Sexual Orientation Not on file documented as of this encounter Plan of Treatment Upcoming Encounters Date Type Department Care Team (Late st Contact Info) Description 04/21/2025 2:00 PM CDT Office Visit [facility] Infectious Disease Clinic [address] [phone] Rl Evasn MD [address] [facility] [address] [place] [address] documented as of this encounter Visit Diagnoses Not on filedocumented in this encounter Care Teams Performance Analyst Relationship Specialty Start Date End Date Bijan Crawford [place] [id number] [facility] [address] [place] [address] PCP - General Family Medicine 01/20/25 documented as of this encounter
--- OUTSIDE RECORDS SUMMARY | 2025-04-02 12:14 | XMS_ITS | Encounter Summary ---
Author Organization [place] Address [facility]0 [facility] [place] [address] Care Team Providers Care Property Maintenance Supervisor Name Role Phone Bijan Crawford Primary Care Provider [phone] Rl Evans MD Unavailable [phone] Reason for Visit * Reason Onset Date Comments conversation 03/10/2025 wantnitza to disc uss patient with Dr Evans Encounter Details Date Type Department Care Team ([facility] Contact Info) Description 03/10/2025 [facility] [address] [address] Rl Evans MD [address] [facility], [facility] [address] [place] [address] conversation ( wants to discuss patient with Dr Evans) Social History Tobacco Use Types Packs/Day Years Used Date Smoking Tobacco: Former Cigarettes Q uit: 07/24/1971 Smokeless Tobacco: Never Sex and Gender Information Value Date Recorded Sex Assigned at Not on file 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 Phone Message May a detailed message be left on voicemail: yes Reason for Call: Silvia calling to let Dr Evans know that Dr Stella Mejia from [facility] would like to talk to him about the patient. Please call her on cell phone. Number given. [phone] Action Taken: Message routed to: [facility] ID Travel Screening: Not Applicable Date of Service: documented in this encounter Plan of Treatment Upcoming Encounters Date Type Department Care Team (Late st Contact Info) Description 04/21/2025 2:00 PM CDT Office Visit [facility] Disease Clinic [address] [phone] Rl Evans MD [address] [place] [address], [facility] [address] [place], [place] [address] documented as of this encounter Visit Diagnoses Not on filedocumented in this encounter Care Teams Property Maintenance Supervisor Relationship Specialty Start Date End Date Bijan Crawford [address] [place], [place] [id number] PCP - General Family Medicine 01/20/25 Rl Evans MD [address] [place] [address], [facility] [address] [place], [place] [id number] Assigned Infectious Disease Provider 03/15/25 documented as of this encounter
--- OUTSIDE RECORDS SUMMARY | 2025-04-02 12:14 | XMS_ITS | Encounter Summary ---
Author Organization [place] Address [address] [place] [address]. [place] [address] Care Team Providers Care Compliance Review Specialist Name Role Phone Ty Bijan Leonidas Primary Care Provider [phone] Reason for Visit * Reason Onset Date Comments Advance Care Planning 02/25/2025 Encounter Details Date Type Department Care Team (Late st Contact Info) Description 02/25/2025 Documentation Only [facility] [address] [facility] [address] [place] [phone] Aida Moya, VINYL FLOORING INSTALLER [facility] [id number] [place], [place] [address] Advance Care Planning Social History Tobacco Use Types Packs/Day Years Used Date Smoking Tobacco: Former Cigarettes Q uit: 07/24/1971 Smokeless Tobacco: Never Sex and Gender Information Value Date Recorded Sex Assigned at Not on file 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 Gender Identity Not on file Sexual Orientation Not on file documented as of this encounter Plan of Treatment Upcoming Encounters Date Type Department Care Team (Late st Contact Info) Description 04/21/2025 2:00 PM CDT Office Visit [facility] [place] [address] [place] [address] Rl Evans MD [address] [facility] [address] [place], [place] [address] documented as of this encounter Visit Diagnoses Not on filedocumented in this encounter Care Teams Compliance Review Specialist Relationship Specialty Start Date End Date Bijan Crawford [address] [place] [address] PCP - General Family Medicine 01/20/25 documented as of this encounter
--- OUTSIDE RECORDS SUMMARY | 2025-04-02 12:14 | XMS_ITS | Patient Health Record ---
Author Organization [facility] Address [address] [place] [address] Care Team Providers Care Bindery Supervisor Name Role Phone Rubén Paez MD Primary Care Provider Melody Michael [place] Unavailable [phone] Reason For Referral No Information Social History Tobacco Use: Social History Observation Description Date Details (start date - stop date) Former Smoker NA - NA Tobacco Use/Smoking Question Answer Notes Are you a former smoker Section Notes: FAMILY HISTORY: HISTORY OF FAMILY PSYCH: Problems Problem Type SNOMED Code ICD Code Onset Dates Problem Status W/U Status Risk Notes Problem Tinea unguium (315980103) Tinea unguium (B35.1) Active confirmed Problem 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 (448238835) 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 confirmed Problem 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 Problem Pressure injury of right buttock stage III (disorder) (96876704709594 ) Pressure ulcer of right buttock, stage 3 (L89.313) Active confirmed Problem Pressure injury of right heel stage IV (disorder) (40681798822747 ) Pressure ulcer of right heel, 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 [place] [address] [id number] Ren Ramirez Self - patient is the insured 3
--- OUTSIDE RECORDS SUMMARY | 2025-04-02 12:14 | XMS_ITS | Encounter Summary ---
Author Organization [place] Address [facility] 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 Gender Identity Not on file Sexual Orientation Not on file documented as of this encounter Plan of Treatment Upcoming Encounters Date Type Department Care Team (Late st Contact Info) Description 04/21/2025 2:00 PM CDT Office Visit [facility] Disease [facility] [place] [address] [place] [address] Rl Evans MD [address] [place] [address], [facility] [address] [place] [address] documented as of this encounter Visit Diagnoses Not on filedocumented in this encounter Care Teams Pulp Mill Operator Relationship Specialty Start Date End Date Bijan Crawford GENEVIVE [address] [facility] [address] [place], [place] [address] PCP - General Family Medicine 01/20/25 documented as of this encounter
--- OUTSIDE RECORDS SUMMARY | 2025-04-02 12:14 | XMS_ITS | Clinical Summary ---
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 Overview (02/06/2025): History of CA Neurogenic bowel 05/26/2018 Primary hypertension 05/28/2015 Overview [...] Encounters Date Type Department Care Team Description 04/01/2025 Lab Requisition [facility] [address] [place] [address] Carmenza Quiroz NP 03/19/2025 Lab Requisition [facility] [phone] Carmenza Quiroz NP 03/14/2025 Lab Requisition [facility] [phone] Unknown, Doctor 03/13/2025 Lab Requisition [facility] [phone] Unknown, Doctor 03/07/2025 Lab Requisition [facility] [phone] Carmenza Quiroz NP 03/04/2025 8:32 AM CDT - 03/04/2025 11:59 PM CDT Hospital Encounter [facility] [address] [place] [address] Pablo Vo, [facility] 03/04/2025 Travel 03/03/2025 Lab Requisition [facility] [phone] Carmenza Quiroz NP 02/14/2025 Lab Requisition [facility] [phone] Carmenza Quiroz NP 02/12/2025 Telephone [facility] [address] [address] Bijan Khanna MD Error-please disregard (Error/) 02/06/2025 Travel 02/05/2025 11:52 PM CDT - 02/07/2025 5:37 PM CDT Hospital Encounter [facility] [address] [place] [address] [facility], [facility] Hospitalists Of [facility], MD Rubin Zaragoza Kirsten Elizabeth, DO Tidwell, Erick José MD Chronic ulcer of sacral region, unspecified ulcer stage (HC) (Primary Dx) Discharge Disposition: Assisted Facility 02/03/2025 Lab Requisition [facility] [phone] Carmenza Quiroz NP 01/20/2025 Lab Requisition [facility] [phone] Carmenza Quiroz NP 01/14/2025 Lab Requisition [facility] [address] [place] [address] Carmenza Quiroz NP 12/30/2024 Lab Requisition [facility] [phone] Gabriella, Carmenza R, CREATIVE INTERN from Last 3 Months Immunizations Immunization Administration Dates Next Due COVID-19 vaccine (X-IO NTech 30mcg/0.3mL) 12YO+ BIVALENT PF, MDV 05/17/2022 [...] st Contact Info) Description 06/02/2025 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 Office Visit [facility] [address] [place] [address] Markel Schultz MD [address] [place] [address] Health Maintenance Due Date Last Done Comments [...] Diagnosis Comments CBC WITH AUTO DIFFERENTIAL Routine 04/01/2025 7:21 AM CDT 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) CBC WITH AUTO DIFFERENTIAL Routine 04/01/2025 7:21 AM CDT 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) CBC WITH AUTO DIFFERENTIAL Routine 03/25/2025 7:13 AM CDT Anemia, unspecified Type 2 diabetes mellitus without complications (HC) Elevated white blood cell count, unspecified BASIC METABOLIC PANEL Routine 03/25/2025 7:13 AM CDT Anemia, unspecified Type 2 diabetes mellitus without complications (HC) Elevated white blood cell count, unspecified C-REACTIVE PROTEIN Routine 03/25/2025 7: 13 AM CDT Anemia, unspecified Type 2 diabetes mellitus without complications (HC) Elevated white blood cell count, unspecified CBC WITH AUTO DIFFERENTIAL Routine 03/25/2025 7:13 AM CDT Anemia, unspecified Type 2 diabetes mellitus without complications (HC) Elevated white blood cell count, unspecified LAB TRACKING EVENT Routine 03/12/2025 1: 28 [...] Routine 12/31/2024 7:10 AM CDT Anemia, unspecified from Last 3 Months Results * (ABNORMAL) CBC WITH AUTO DIFFERENTIAL (04/01/2025 7:21 AM CDT) Only the most recent of9 resultswithin the time period is included. WHITE BLOOD COUNT 10.4 4.5 - 11.0 thou/cu mm 04/01/2025 10:14 AM [facility] RED BLOOD COUNT 3.60(L) 4.30 - 5.90 mil/cu mm 04/01/2025 10:14 AM [facility] HEMOGLOBIN 9.0(L) 13.5 - 17.5 g/dL 04/01/2025 10:14 AM [facility] HEMATOCRIT 30.2(L) 37.0 - 53.0 % 04/01/2025 10:14 AM [facility] MCV 84 80 - 100 fL 04/01/2025 10:14 AM [facility] MCH 25.0(L) 26.0 - 34.0 pg 04/01/2025 10:14 AM [facility] MCHC 29.8(L) 32.0 - 36.0 g/dL 04/01/2025 10:14 AM [facility] RDW 18.5(H) 11.5 - 15.5 % 04/01/2025 10:14 AM [facility] PLATELET COUNT 239 140 - 440 thou/cu mm 04/01/2025 10:14 AM [facility] MPV 9.5 6.5 - 11.0 fL 04/01/2025 10:14 AM [facility] % NEUT 69.5 % 04/01/2025 10:14 AM [facility] % LYMPH 19.4 % 04/01/2025 10:14 AM [facility] % MONO 7.8 % 04/01/2025 10:14 AM [facility] % EOS 3.2 % 04/01/2025 10:14 AM CDT [facility] % BASO 0.1 % 04/01/2025 10:14 AM CDT [facility] ABSOLUTE NEUTROPHILS 7.2(H) 1.7 - 7.0 thou/cu mm 04/01/2025 10:14 AM CDT [facility] ABSOLUTE LYMPHOCYTES 2.0 0.9 - 2.9 thou/cu mm 04/01/2025 10:14 AM CDT [facility] ABSOLUTE MONOCYTES 0.8 <0.9 thou/cu mm 04/01/2025 10:14 AM T [facility] ABSOLUTE EOSINOPHILS 0.3 <0.5 thou/cu mm 04/01/2025 10:14 AM CDT [facility] ABSOLUTE BASOPHILS 0.0 <0.3 thou/cu mm 04/01/2025 10:14 AM T [facility] Blood BLOOD SPECIMEN / Unknown Butterfly / Unknown 04/01/2025 7:21 AM CDT 04/01/2025 9:37 AM CDT Carmenza Quiroz NP HEMATOLOGY Final Resul t Performing Organization Address City/[facility] Co de Phone Number [facility] [address] [place] [address] * (ABNORMAL) C-REACTIVE PROTEIN (03/25/2025 7:13 AM CDT) Only the most recent of3 resultswithin the time period is included. C-REACTIVE PROTEIN 9.6(H) <0.5 mg/dL 03/25/2025 8:47 AM CDT [facility] Blood BLOOD SPECIMEN / Unknown Butterfly / Unknown 03/25/2025 7:13 AM CDT 03/25/2025 8:21 AM CDT Carmenza Quiroz NP CHEMISTRY Final Resul t Performing Organization Address City/[facility]/ZIP Co de Phone Number [facility] [address] [place] [address] * (ABNORMAL) BASIC METABOLIC PANEL (03/25/2025 7:13 AM T) Only the most recent of8 resultswithin the time period is included. SODIUM 141 136 - 145 mmol/L 03/25/2025 8:47 AM [facility] POTASSIUM 4.0 3.5 - 5.1 mmol/L 03/25/2025 8:47 AM [facility] CHLORIDE 105 98 - 107 mmol/L 03/25/2025 8:47 AM [facility] CO2,TOTAL 24 22 - 29 mmol/L 03/25/2025 8:47 AM [facility] ANION GAP 12 5 - 18 03/25/2025 8:47 AM [facility] GLUCOSE 131(H) 70 - 99 mg/dL 03/25/2025 8:47 AM [facility] CALCIUM 9.1 8.8 - 10.4 mg/dL 03/25/2025 8:47 AM [facility] Comment: Reference ranges for this test were updated on 05/28/2024 to reflect our healthy population more accurately. Reference range changes are not retroactively applied to results, but previous results using the same methodology can be interpreted in the context of the new reference range. BUN 26(H) 8 - 23 mg/dL 03/25/2025 8:47 AM [facility] CREATININE 1.18 0.70 - 1.20 mg/dL 03/25/2025 8:47 AM [facility] BUN/CREAT RATIO 22(H) 10 - 20 8:47 AM [facility] eGFR 64(L) >90 mL/min/1. 73m2 03/25/2025 8:47 AM [facility] Comment:As of 2021, eG FR is calculated by the CKD-EPI creatinine equation without race adjustment. eGFR can be influenced by muscle mass, exercise, and diet. The reported eGFR is an estimation only and is only applicable if the renal function is stable. Blood BLOOD SPECIMEN / Unknown Butterfly / Unknown 03/25/2025 7:13 AM CDT 03/25/2025 8:21 AM CDT us Carmenza Quiroz CREATIVE INTERN CHEMISTRY Final Resul t [facility] [address] [place] [address] * LAB TRACKING EVENT (03/12/2025 1:28 PM CDT) Other (Other) Client Collect / Unknown 03/12/2025 1:28 PM CDT 03/13/2025 6:12 AM CDT us Doctor Unknown LAB BILL ONLY Final Result [facility] [address] [place] [address], [place] * PATH TISSUE EXAM (03/12/2025 1:28 PM CDT) Case Report Pathology Report Case: [id number] Authorizing Provider: Unknown, Doctor Collected: 03/12/2025 1328 Ordering Location: [facility] Received: 03/13/2025 1607 Pathologist: Clay Carcamo MD Specimen: Right Buttock, buttock wound, stage 4 ulcer 03/17/2025 11:16 AM CDT [facility] Final Diagnosis A) BONE, RIGHT GLUTEUS, BIOPSY: 1. Soft tissue and periosteum with mixed inflammation 2. Scant fragments of bone with mixed inflammation 3. See comment 03/17/2025 11:16 AM CDT [facility] at 1116 CDT Comment Minimal bone is available for assessment, which appears to show involvement by acute and chronic inflammation, although it is unclear if this represents osteomyelitis, or an embedding artifact. Correlation with imaging and culture data is recommended. 03/17/2025 11:16 AM CDT [facility] Clinical Information Per requisition: Assess for osteomyelitis, positive on MRI 03/17/2025 11:16 AM CDT [facility] Gross Description A) Received in formalin, labeled with the patient's name and bone biopsy R gluteus, is a 2.0 x 1.5 x 0.6 cm aggregate of softened sandoval-brown bone with minimal attached soft tissue. The specimen is entirely submitted following decalcification in 1 cassette. JKG 03/13/2025 03/17/2025 11:[address] [facility] Microscopic Description The final diagnosis is based on microscopic examination of appropriate sections of all specimens. 03/17/2025 11:[address] [facility] Additional Information Interpreted at [facility] - [address] [address] 03/17/2025 11:[address] [facility] Other (Right Buttock) 03/12/2025 1:28 PM CDT 03/13/2025 4:07 PM CDT us Doctor Unknown PATHOLOGY/CYTOLOGY Final Result Performing Organization Address City/[facility]/ZIP Co de Phone Number [facility] [address] [place] [address], [place] * (ABNORMAL) RED CELL MORPHOLOGY (03/11/2025 8:23 AM CDT) Only the most recent of3 resultswithin the time period is included. ELLIPTOCYTES Few 03/11/2025 10:42 AM CDT [facility] RBC COMMENT Present(A) RBC morphology appears normal, RBC morphology within normal limits for newborns. 03/11/2025 10:42 AM CDT [facility] LARGE PLATELETS Present 10:42 AM CDT [facility] Blood BLOOD SPECIMEN / Unknown Butterfly / Unknown 03/11/2025 8:23 AM CDT 03/11/2025 9:36 AM CDT us Carmenza Quiroz NP HEMATOLOGY Final Resul t [facility] [address] [place] [address] * PLATELET ESTIMATE (03/11/2025 8:23 AM CDT) Only the most recent of3 resultswithin the time period is included. [facility] PLATELET ESTIMATE Adequate Adequate, No estimate 03/11/2025 10:42 AM [facility] Blood BLOOD SPECIMEN / Unknown Butterfly / Unknown 03/11/2025 8:23 AM CDT 03/11/2025 9:36 AM CDT us Carmenza Quiroz CREATIVE INTERN HEMATOLOGY Final Resul t [facility] [address] [place] [address] * (ABNORMAL) MANUAL DIFFERENTIAL (03/11/2025 8:23 AM CDT) Only the most recent of2 resultswithin the time period is included. [facility] % NEUTROPHILS 76.0 % 03/11/2025 10:42 AM [facility] % LYMPHOCYTES 21.0 % 03/11/2025 10:42 AM [facility] % MONOCYTES 3.0 % 03/11/2025 10:42 AM [facility] % EOSINOPHILS 0.0 % 03/11/2025 10:42 AM [facility] % BASOPHILS 0.0 % 03/11/2025 10:42 AM [facility] NEUTROPHILS ABSOLUTE 9.5(H) 1.7 - 7.0 thou/cu mm 03/11/2025 10:42 AM [facility] LYMPHOCYTES ABSOLUTE 2.6 0.9 - 2.9 thou/cu mm 03/11/2025 10:42 AM [facility] MONOCYTES ABSOLUTE 0.4 <0.9 thou/cu mm 03/11/2025 10:42 AM [facility] EOSINOPHILS ABSOLUTE 0.0 <0.5 thou/cu mm 03/11/2025 10:42 AM [facility] BASOPHILS ABSOLUTE 0.0 <0.3 thou/cu mm 03/11/2025 10:42 AM CDT [facility] Blood BLOOD SPECIMEN / Unknown Butterfly / Unknown 03/11/2025 8:23 AM CDT 03/11/2025 9:36 AM CDT Carmenza Quiroz CREATIVE INTERN HEMATOLOGY Final Resul t Performing Organization Address [facility] de Phone Number [facility] [address] [place] [address] * CT CHEST PE STUDY (03/04/2025 9:07 AM CDT) Anatomical Region Laterality Modality CHEST, THORAX, HEART Computed To mography Pablo Vo [facility] CT Fin al Result * HEMOGLOBIN A1C (02/18/2025 7:15 AM CDT) Pathologist [facility] [place] HEMOGLOBIN A1C SCREENING 6.3 <=6.4 % 02/18/2025 8:35 AM CDT [facility] Blood BLOOD SPECIMEN / Unknown Butterfly / Unknown 02/18/2025 7:15 AM CDT 02/18/2025 8:19 AM CDT Narrative [facility] - 02/18/2025 8:35 AM CDT (<5.7%) Normal (5.7% to 6.4%) Indicates prediabetes (>=6.5%) Confirms diabetes Falsely low levels may be seen with: Recent Transfusion, Recent Significant Blood Loss, Hemolytic Diseases, or Falsely elevated levels may be seen with: Untreated Anemias, Splenectomy Carmenza Quiroz NP CHEMISTRY Final Resul t Performing Organization Address [facility] Co de Phone Number [facility] [address] [place] [address] * (ABNORMAL) HEPATIC FUNCTION PANEL (02/18/2025 7:15 AM CDT) Pathologist [facility] [place] ALBUMIN 3.3(L) 4.0 - 4.9 g/dL 02/18/2025 8:54 AM CDT [facility] PROTEIN,TOTAL 6.9 6.0 - 8.0 g/dL 02/18/2025 8:54 AM CDT [facility] BILIRUBIN,TOTAL 0.5 0.0 - 1.2 mg/dL 02/18/2025 8:54 AM CDT [facility] BILIRUBIN,DIRECT 0.3(H) 0.0 - 0.2 mg/dL 02/18/2025 8:54 AM CDT [facility] BILIRUBIN,INDIRE CT 0.2 0.2 - 0.8 mg/dL 02/18/2025 8:54 AM T [facility] ALK PHOSPHATASE 185(H) 40 - 129 IU/L 02/18/2025 8:54 AM T [facility] ALT (SGPT) 39 10 - 50 IU/L 02/18/2025 8:54 AM T [facility] AST (SGOT) 37 10 - 50 IU/L 02/18/2025 8:54 AM T [facility] Blood BLOOD SPECIMEN / Unknown Butterfly / Unknown 02/18/2025 7:15 AM CDT 02/18/2025 8:19 AM CDT us Carmenza Quiroz CREATIVE INTERN CHEMISTRY Final Resul t [facility] [address] [place] [address] * (ABNORMAL) GLUCOSE METER (02/07/2025 7:58 AM CDT) Only the most recent of7 resultswithin the time period is included. GLUCOSE METER 146(H) 65 - 100 mg/dL 02/07/2025 7:58 AM CDT [facility] Blood BLOOD SPECIMEN / Unknown 02/07/2025 7:58 AM CDT 02/07/2025 7:58 AM CDT us Erick Culverdwell MD CHEMISTRY Final Resu lt Performing Organization Address City/[facility]/ZIP Co de Phone Number [facility] [address] [place] [address], [place] * WBC AM (02/07/2025 7:05 AM CDT) Only the most recent of2 resultswithin the time period is included. WHITE BLOOD COUNT 7.8 4.5 - 11.0 thou/cu mm 02/07/2025 7:20 AM CDT [facility] NRBC 0.0 % 02/07/2025 7:20 AM CDT [facility] ABS NRBC 0.0 thou /cu mm 02/07/2025 7:20 AM CDT [facility] Blood BLOOD SPECIMEN / Unknown Venipuncture / Unknown 02/07/2025 7:05 AM CDT 02/07/2025 7:11 AM CDT us Erick Lazaro MD HEMATOLOGY Final Resu lt Performing Organization Address [facility] de Phone Number [facility] [address] [address], [place] * (ABNORMAL) Hemoglobin AM (02/07/2025 7:05 AM CDT) Only the most recent of3 resultswithin the time period is included. HEMOGLOBIN 9.6(L) 13.5 - 17.5 g/dL 02/07/2025 7:20 AM CDT [facility] MCV 84 80 - 100 fL 02/07/2025 7:20 AM CDT [facility] Blood BLOOD SPECIMEN / Unknown Venipuncture / Unknown 02/07/2025 7:05 AM CDT 02/07/2025 7:11 AM CDT us Erick Lazaro MD HEMATOLOGY Final Resu lt Performing Organization Address City/[facility]/ZIP Co de Phone Number [facility] [address] [place] [address], [place] * Potassium AM (02/07/2025 7:04 AM CDT) POTASSIUM 3.6 3.5 - 5.1 mmol/L 02/07/2025 7:46 AM CDT [facility] Blood BLOOD SPECIMEN / Unknown Venipuncture / Unknown 02/07/2025 7:04 AM CDT 02/07/2025 7:11 AM CDT Erick Lazaro MD CHEMISTRY Final Resu lt [facility] [address] [place] [address], [place] * (ABNORMAL) Creatinine AM (02/07/2025 7:04 AM CDT) eGFR 90(L) >90 mL/min/1.7 3m2 02/07/2025 7:46 AM CDT [facility] Comment:As of 2021, eG FR is calculated by the CKD-EPI creatinine equation without race adjustment. eGFR can be influenced by muscle mass, exercise, and diet. The reported eGFR is an estimation only and is only applicable if the renal function is stable. CREATININE 0.87 0.70 - 1.20 mg/dL 02/07/2025 7:46 AM CDT [facility] Blood BLOOD SPECIMEN / Unknown Venipuncture / Unknown 02/07/2025 7:04 AM CDT 02/07/2025 7:11 AM CDT Erick Lazaro MD CHEMISTRY Final Resu lt [facility] [address] [place] [address], [place] * Magnesium AM (02/07/2025 7:04 AM CDT) MAGNESIUM 1.6 1.6 - 2.4 mg/dL 02/07/2025 7:46 AM CDT [facility] Blood BLOOD SPECIMEN / Unknown Venipuncture / Unknown 02/07/2025 7:04 AM CDT 02/07/2025 7:11 AM CDT us Erick Lazaro MD CHEMISTRY Final Resu lt Performing Organization Address City/[facility]/ZIP Co de Phone Number [facility] [address] [place] [phone], [place] * PLATELET COUNT (02/06/2025 2:22 PM CDT) PLATELET COUNT 202 140 - 440 thou/cu mm 02/06/2025 2:45 PM CDT [facility] MPV 9.0 6.5 - 11.0 fL 02/06/2025 2:45 PM CDT [facility] Blood BLOOD SPECIMEN / Unknown Butterfly / Unknown 02/06/2025 2:22 PM CDT 02/06/2025 2:39 PM CDT Narrative [facility] - 02/06/2025 2:45 PM CDT Obtain before initiating IV heparin therapy if not done within previous 24 hours. Obtain before initiating IV heparin therapy if not done within previous 24 hours. us Erick Lazaro MD HEMATOLOGY Final Resu lt Performing Organization Address [facility]/ZIP Co de Phone Number [facility] [address] [place] [phone], [place] * APTT (02/06/2025 2:22 PM CDT) APTT 34 25 - 36 sec 02/06/2025 2:52 PM CDT [facility] Blood BLOOD SPECIMEN / Unknown Butterfly / Unknown 02/06/2025 2:22 PM CDT 02/06/2025 2:39 PM CDT Narrative [facility] - 02/06/2025 2:52 PM CDT Therapeutic Range: 59-89 seconds us Erick Lazaro MD HEMATOLOGY Final Resu lt [facility] [address] [address], [place] * (ABNORMAL) PROTIME-INR (02/06/2025 2:22 PM CDT) INR 1.3(H) <1.3 02/06/2025 2:52 PM CDT [facility] PROTIME 15.0(H) 10.6 - 12.4 sec 02/06/2025 2:52 PM CDT [facility] Blood BLOOD SPECIMEN / Unknown Butterfly / Unknown 02/06/2025 2:22 PM CDT 02/06/2025 2:39 PM CDT Narrative [facility] - 02/06/2025 2:52 PM [...] HEMATOLOGY Final Resu lt Performing Organization Address City/State/[facility] Co de Phone Number [facility] [address] [address], [place] * SCAN CORRESP-EKG RESULTS (02/06/2025 1:33 PM CDT) Narrative 02/06/2025 1:33 PM CDT Ordered by an unspecified provider. Other Clinical Staff OTHER Final Resul t * TSH (01/14/2025 7:40 AM CDT) TSH 2.69 0.27 - 4.20 uIU/mL 01/14/2025 9:16 AM CDT [facility] Blood BLOOD SPECIMEN / Unknown Butterfly / Unknown 01/14/2025 7:40 AM CDT 01/14/2025 8:42 AM CDT Narrative [facility] - 01/14/2025 9:16 AM CDT In Adults, TSH values between 5.00 and 10.00 uIU/ml do not necessarily indicate the presence of Hypothyroidism. Correlation with clinical findings such as presence of goiter and/or Thyroperoxidase (TPO) Antibody may be helpful. For more information please refer to LUIGI 2004; 291: 228-238. Carmenza Quiroz CREATIVE INTERN CHEMISTRY Final Resul t Performing Organization Address City/[facility]/ZIP Co de Phone Number [facility] [address] [place] [address] * ALT (SGPT) (01/14/2025 7:40 AM CDT) ALT (SGPT) 19 10 - 50 IU/L 01/14/2025 9:16 AM CDT [facility] Blood BLOOD SPECIMEN / Unknown Butterfly / Unknown 01/14/2025 7:40 AM CDT 01/14/2025 8:42 AM CDT Carmenza Quiroz NP CHEMISTRY Final Resul t Performing Organization Address [facility] Co de Phone Number [facility] [address] [place] [address] * ALK PHOSPHATASE (01/14/2025 7:40 AM CDT) ALK PHOSPHATASE 85 40 - 129 IU/L 01/14/2025 9:16 AM CDT [facility] Blood BLOOD SPECIMEN / Unknown Butterfly / Unknown 01/14/2025 7:40 AM CDT 01/14/2025 8:42 AM CDT Carmenza Quiroz CREATIVE INTERN CHEMISTRY Final Resul t Performing Organization Address [facility]/ZIP Co de Phone Number [facility] [address] [place] [address] * (ABNORMAL) PRO-BNP (01/14/2025 7:40 AM CDT) [facility] Signature PRO-BNP 1,544(H) <450 pg/mL 01/14/2025 9:19 AM CDT [facility] Blood BLOOD SPECIMEN / Unknown Butterfly / Unknown 01/14/2025 7:40 AM CDT 01/14/2025 8:42 AM CDT [facility] - 01/14/2025 9:19 AM CDT The [...] Quiroz NP SEND OUTS Final Resul t [facility] [address] [place], [place] [id number] from Last 3 Months Additional Health Concerns Infection Onset Date Last Indicated MDRO Clearance Comment:Infection Control Note: Hx of ESBL, surveillance criteria met, no need for further testing or isolation precautions. Do not delete or resolve the Infection Flag. Anecdotal +ESBL 02/06/2025 02/06/2025 Insurance [employer]) [facility] [place] [employer] [facility] [place] Advance Directives Documents on File Type Date Recorded Patient [employer] Expl anation POLST 01/26/2023 * Full Code (Latest Code Status on File) Date Activated Date Inactivated Comments 02/06/2025 3:46 AM 02/07/2025 7:38 PM Question Answer Comments Code Status Discussion: Reviewed Preferences * Full Code Date Activated Date Inactivated Comments 02/06/2025 12:37 AM 02/06/2025 3:46 AM Question Answer Comments Code Status Discussion: Unable to Assess Preferences, Provider to review later Care Teams Medical Biller Coder Relationship Specialty Start Date End Date Pcp, No . PCP - General 03/03/25 Birdie Taveras, RN [address] [facility] [address] [place], [place] [id number] Unix Architect - [facility] [place] Registered Nurse 07/24/23 Karrie Singer, RN [address] [facility] [address] [place], [place] [id number] Unix Architect - [facility] [place] Registered Nurse 07/24/23
--- OUTSIDE RECORDS SUMMARY | 2025-04-02 12:14 | XMS_ITS | Encounter Summary ---
Author Organization [place] Address [address] [place] [address]. [place] [address] Care Team Providers Care Customer Success Manager Name Role Phone TyBijan Primary Care Provider [phone] Encounter Details Date Type Department Care Team (Late st Contact Info) Description 02/19/2025 Medical Correspondence [facility] Information Management [address] 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 Gender Identity Not on file Sexual Orientation Not on file documented as of this encounter Plan of Treatment Upcoming Encounters Date Type Department Care Team (Late st Contact Info) Description 04/21/2025 2:00 PM CDT Office Visit [facility] [address] [address] Rl Evans MD [address] [place] [address], [facility] [address] [place], [place] [address] documented as of this encounter Visit Diagnoses Not on filedocumented in this encounter Care Teams Customer Success Manager Relationship Specialty Start Date End Date Bijan Crawford Leonidas [address] [place] [address] PCP - General Family Medicine 01/20/25 documented as of this encounter
--- OUTSIDE RECORDS SUMMARY | 2025-04-02 12:14 | XMS_ITS | Encounter Summary ---
Author Organization [place] Address [address] [place] [address] Care Team Providers Care Bridge Tender Name Role Phone Ty Bijan Lauren Primary Care Provider [phone] Encounter Details Date Type Department Care Team (Latest Contact Info) Description 02/12/[address] 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 Gender Identity Not on file Sexual Orientation Not on file documented as of this encounter Plan of Treatment Upcoming Encounters Date Type Department Care Team (Late st Contact Info) Description 04/21/2025 2:00 PM CDT Office Visit [facility] [place] [address] [place] [address] Rl Evans MD [address] [place] [address], [facility] [address] [place], [place] [phone] documented as of this encounter Visit Diagnoses Not on filedocumented in this encounter Care Teams Bridge Tender Relationship Specialty Start Date End Date Bijan Crawford [place] [id number] [facility] [address] [place] [address] PCP - General Family Medicine 01/20/25 documented as of this encounter
--- NOTE | 2025-04-02 12:25 | CRLHL7_ITS ---
For Patients: As a result of the Century Cures Act, medical imaging exams and procedure reports are released immediately into your electronic medical record. You may view this report before your referring provider. If you have questions, please contact your health care provider. INDICATION: Hypoxia. Elevated creatinine. Abdominal pain. TECHNIQUE: CT chest, abdomen and pelvis acquired without contrast. COMPARISON: 02/21/2025. FINDINGS: CHEST: Respiratory motion is present. Moderate emphysema. The clustered nodularity within the right lung base is nearly resolved (63). No new nodularity. No consolidation. No pulmonary edema. No pleural effusion or pneumothorax. Prominent mediastinal lymph nodes are unchanged. No hilar lymphadenopathy. The heart is normal in size. Coronary calcifications present. No significant effusion. The aorta is nonaneurysmal. No axillary lymphadenopathy. No chest wall masses. Bone windows demonstrate no suspicious lytic or sclerotic lesion. No acute fracture. ABDOMEN AND PELVIS: The liver is unchanged in appearance. Redemonstrated is an indeterminate hypoattenuating mass within the dome of the liver with internal calcification. This is not definitively changed compared to the prior not well evaluated on a noncontrast CT examination. It measures approximately 6.2 x 5.6 centimeters, previously approximately 6.1 x 5.6 centimeters. Recommend correlation patient`s previous workup. Decompressed gallbladder with cholecystostomy tube in place within the findings. Slightly improved indeterminate thickening of the gallbladder which may represent chronic cholecystitis. No adjacent fluid collection or ascites. No biliary ductal dilatation. The spleen is unremarkable. Atrophy of the pancreas is redemonstrated without peripancreatic stranding. Nodule along the lateral limb of the right adrenal gland is redemonstrated. There is bilateral parenchymal thinning of the kidneys. Prominent renal pelvis are seen without hydronephrosis. There indeterminate left renal mass is redemonstrated and better seen on the prior contrast imaging. Recommend correlation. The urinary bladder is partially distended with a Eason catheter in place. There is indeterminate bladder wall thickening. Gas within the urinary bladder lumen is likely due to the indwelling catheter. Prominent anorectal soft tissue was seen in not well evaluated on CT. There is indeterminate thickening of the rectum inferiorly which is similar compared to prior. No significant inflammatory fat stranding. Stool throughout the remainder of the colon which appears nondilated. The appendix is nondilated. The stomach is unremarkable. The small bowel is nondilated without evidence of a small-bowel obstruction. No free air. No ascites. Tiny fat containing umbilical hernia. Prominent periportal lymph nodes are redemonstrated likely reactive. There are subcentimeter lymph nodes noted elsewhere. Prominent prostate. Aorta is not aneurysmal. Chronic soft tissue defect within the left gluteal region extending to the left ischium. No definitive change in the sclerosis of the ischium as evidence for chronic osteomyelitis. Minimal increase in heterotopic bone formation along the inferior aspect (226). Smaller soft tissue defect is noted at the level of the left posterior iliac bone which is grossly unchanged as well. There is no gross increased erosion or sclerosis to suggest acute osteomyelitis. Soft tissue thickening noted about the posterior iliac bone is unchanged as well. There is no subcutaneous fluid collections seen. Instrumentation is seen within the right hip. No acute fracture. There is grossly unchanged endplate irregularity and sclerosis at L5-S1. IMPRESSION: 1. Persistent indeterminate urinary bladder wall thickening with a Eason catheter in place. Recommend correlation with urinalysis. Prominent renal pelvis are seen without hydronephrosis. 2. Redemonstrated decompressed gallbladder with a cholecystostomy tube in place. Improved gallbladder wall thickening compared to 02/21/2025 could represent chronic cholecystitis. No pericholecystic fluid collection. 3. Redemonstrated chronic decubitus ulcers with evidence of chronic osteomyelitis of the left ischium. No organized drainable fluid collection. Follow-up pelvic MRI may be performed for further evaluation if clinically indicated. 4. Nearly resolved trace right lower lobe clustered nodularity without acute pulmonary abnormality. 5. Additional chronic findings. Please note that all CT scans at this facility use dose modulation, iterative reconstruction, and/or weight-based dosing when appropriate to reduce radiation dose to as low as reasonably achievable. Dictated by Herb Sinclair MD @ 04/02/2025 1:21:26 PM (Electronically Signed)
--- NOTE | 2025-04-02 12:29 | ED.GENADULT ---
HPI - General Adult General Chief complaint: Abdominal Pain Stated complaint: Abdominal pain Time Seen by Provider: 04/02/25 12:19 History of Present Illness HPI narrative: Patient is a very complicated 75 year white male who has got multiple medical medical problems including MS, diabetes, osteomyelitis in a stage IV pressure ulcer on the buttocks with a wound VAC, he has also got a indwelling bile drainage catheter placed by [facility]. Staff reported that [facility] and today they noted blood pressure be lower in the 70s and 80s systolic and that he was somewhat hypoxic, however he was brought in by ambulance and now is O2 sat is on room air 97% his blood pressure is 116/42, he has no complaints. Specifically denies abdominal pain he denies chest pain he denies breathing difficulty he has some cognitive impairment and has difficulty remembering ?yesterday?. Denies any symptoms of baseline right now. He has not had a cough. Has had no fever to his knowledge. Related Data Home Medications ?Medication ?Instructions ?Recorded ?Confirmed calcium carbonate (Zachary-Gest 400 mg PO BID PRN 08/07/24 04/02/25 Antacid) cholecalciferol (vitamin D3) 25 25 mcg PO DAILY 08/07/24 04/02/25 mcg (1,000 unit) tablet (Vitamin D3) furosemide 40 mg tablet 40 mg PO DAILY 08/07/24 04/02/25 lisinopril 40 mg tablet 40 mg PO DAILY 08/07/24 04/02/25 metoprolol succinate 100 mg 100 mg PO DAILY 08/07/24 04/02/25 tablet,extended release 24 hr pantoprazole 40 mg tablet,delayed 40 mg PO BID 08/07/24 04/02/25 release polyethylene glycol 3350 17 17 g PO DAILY 08/07/24 04/02/25 gram/dose oral powder apixaban 5 mg tablet (Eliquis) 5 mg PO BID 11/16/24 04/02/25 atorvastatin 80 mg tablet 80 mg PO 11/16/24 04/02/25 bacitracin 500 unit/gram topical 1 applic topical BID 11/16/24 04/02/25 ointment baclofen 10 mg tablet 10 mg PO BID 11/16/24 04/02/25 latanoprost 0.005 % eye drops 1 drp ophthalmic (eye) 11/16/24 04/02/25 sennosides 8.6 mg-docusate sodium 2 tab-cap PO DAILY PRN 11/16/24 04/02/25 50 mg tablet (Senna Plus) carbamide peroxide 6.5 % ear drops 5 drp otic (ear) Q7D PRN 11/17/24 04/02/25 (Ear Wax Removal Kit) clotrimazole 1 % topical cream 1 applic topical BID 12/12/24 04/02/25 acetic acid 0.25 % irrigation See Rx Instructions .Route BID 01/04/25 04/02/25 solution ferrous sulfate 325 mg (65 mg 325 mg PO Q48H 01/04/25 04/02/25 iron) tablet metformin 500 mg tablet,extended 1,000 mg PO QPM 01/04/25 03/21/25 release 24 hr oxycodone 5 mg tablet 5 mg PO Q6H PRN 01/04/25 04/02/25 sennosides 8.6 mg tablet (senna) 17.2 mg PO DAILY PRN 01/28/25 04/02/25 ondansetron HCl 4 mg tablet 4 mg PO BID 02/21/25 04/02/25 cetirizine 10 mg tablet 10 mg PO DAILY 04/02/25 04/02/25 fluticasone propionate 50 intranasal 04/02/25 mcg/actuation nasal spray,suspension sertraline 25 mg tablet 25 mg PO DAILY 04/02/25 04/02/25 Previous Rx's ?Medication ?Instructions ?Recorded allopurinol 100 mg tablet 100 mg PO DAILY #30 tabs 11/19/24 Allergies Allergy/AdvReac Type Severity Reaction Status Date / Time Haemophilus B polysaccharide Allergy Unknown Verified 04/02/25 12:26 conj w vancomycin Allergy Unknown Verified 04/02/25 12:26 Review of Systems Status of ROS: Reports: 6 or more systems reviewed and unremarkable except as noted in History and below [facility] Medical History Chronic anticoagulation ?Z79.01 - penitentiary (current) use of anticoagulants (ICD-10) History of pulmonary embolism ?Z86.711 - Personal history of pulmonary embolism (ICD-10) Paraplegia ?G82.20 - Paraplegia, unspecified (ICD-10) Lymphedema ?I89.0 - Lymphedema, not elsewhere classified (ICD-10) Diabetes mellitus ?E11.9 - Type 2 diabetes mellitus without complications (ICD-10) Stage III pressure ulcer of sacral region ?L89.153 - Pressure ulcer of sacral region, stage 3 (ICD-10) Stage III pressure ulcer of buttock ?L89.303 - Pressure ulcer of unspecified buttock, stage 3 (ICD-10) Pressure ulcer of coccygeal region, stage 1 ?L89.151 - Pressure ulcer of sacral region, stage 1 (ICD-10) Neurogenic bowel ?K59.2 - Neurogenic bowel, not elsewhere classified (ICD-10) Hyperuricemia ?E79.0 - Hyperuricemia without signs of inflammatory arthritis and tophaceous disease (ICD-10) Hyperlipidemia ?E78.5 - Hyperlipidemia, unspecified (ICD-10) Hypertension ?I10 - Essential (primary) hypertension (ICD-10) Coronary artery disease ?I25.10 - Atherosclerotic heart disease of campo coronary artery without angina pectoris (ICD-10) Fracture, intertrochanteric, right femur ?S72.141A - Displaced intertrochanteric fracture of right femur, initial encounter for closed fracture (ICD-10) Sleep apnea ?G47.30 - Sleep apnea, unspecified (ICD-10) Eason catheter in place ?Z97.8 - Presence of other specified devices (ICD-10) Neurogenic bladder ?N31.9 - Neuromuscular dysfunction of bladder, unspecified (ICD-10) Obesity ?E66.9 - Obesity, unspecified (ICD-10) Multiple sclerosis ?G35 - Multiple sclerosis (ICD-10) Surgical History H/O insertion of cholecystostomy tube ?Z98.890 - Other specified postprocedural states (ICD-10) Family History Father Coronary artery disease High blood pressure High cholesterol Sleep apnea Social History Narrative: Resident of [facility]. Daughter Malika is healthcare power of diamond driller helper. Code status is DNR. Remote history of smoking What is your current living situation?: I presently have a place to live Problems where you live: no known problems Problems where you live details: NA In the past 12 months, utilities in danger of being shut off: no In past 12 months, lack of transportation kept you from medical appts, meetings, work, or getting things needed for daily living: no In the past 12 mos, have been you worried that your food would run out before you had money to buy more?: never true In the past 12 mos, the food you bought just didn't last and you didn't have money to buy more?: never true Highest level of school completed/degree received: 12th grade, no diploma Smoking Status: Former smoker What tobacco products do you use: cigarettes Smoking quit date/years: >15 years ago Do you use any of these nicotine containing products: None Second hand tobacco smoke exposure: No How often do you have a drink containing alcohol: never How often do you have six or more drinks on one occasion: Never AUDIT-C Alcohol total score: 0 Non-prescribed substance use: denies use Caffeine: Yes (tea and coffee) How often does anyone, including family, friends and others, physically hurt you: unable to answer How often does anyone, including family, friends and others, insult or talk down to you: unable to answer How often does anyone, including family, friends and others, threaten you with harm: unable to answer How often does anyone, including family, friends and others, scream or curse at you: unable to answer service: No Exam Narrative: Exam Narrative: Objective vital signs look within normal limits O2 sat 97% on room air patient is not hypoxic and does not have a fever He is alert oriented, states he does not remember yesterday but he knows he is in the hospital and denies any complaints at present. HEENT shows slightly dry mucous membranes in the mouth but otherwise no facial asymmetry, chest clear heart rhythm regular 2/6 out murmur He has got a right upper quadrant bile drainage tube that appears intact and there is no evidence of infection around the area of Abdomen is benign soft nontender bowel sounds are active Extremities without edema neurologic nonfocal. Const: Vital Signs, click to edit/add: Vital Signs - 24 hr 04/02/25 12:20 04/02/25 12:58 04/02/25 13:00 Temperature 97.6 F Pulse Rate 63 60 Pulse Rate [Pulse Oximeter] 69 Respiratory Rate 16 Blood Pressure Blood Pressure [Ri ght Upper Arm] 116/42 L Pulse Oximetry 97 98 97 Oxygen Delivery Me od Room Air 04/02/25 13:04 04/02/25 13:15 04/02/25 13:16 Temperature Pulse Rate 63 63 65 Pulse Rate [Pulse Oximeter] Respiratory Rate Blood Pressure 87/44 L 92/41 L Blood Pressure [Ri ght Upper Arm] Pulse Oximetry 98 98 [facility] 04[facility] 13:17 04/02/25 13:30 04/02/25 13:31 Temperature Pulse Rate 61 62 61 Pulse Rate [Pulse Oximeter] Respiratory Rate Blood Pressure 98/42 L Blood Pressure [Ri ght Upper Arm] Pulse Oximetry 97 100 [facility] 04/02/25 13:45 04/02/25 13:46 04/02/25 13:48 Temperature Pulse Rate 64 64 64 Pulse Rate [Pulse Oximeter] Respiratory Rate Blood Pressure 107/45 L Blood Pressure [Ri ght Upper Arm] Pulse Oximetry 97 98 96 [facility] 04/02/25 14:00 04/02/25 14:02 04/02/25 14:15 Temperature Pulse Rate 58 L 59 L 58 L Pulse Rate [Pulse Oximeter] Respiratory Rate Blood Pressure 89/36 L Blood Pressure [Ri ght Upper Arm] Pulse Oximetry 98 98 97 [facility] 04/02/25 14:16 04/02/25 14:17 04/02/25 14:30 Temperature Pulse Rate 60 56 L 59 L Pulse Rate [Pulse Oximeter] Respiratory Rate Blood Pressure 93/37 L Blood Pressure [Ri ght Upper Arm] Pulse Oximetry 96 96 100 [facility] 04/02/25 14:31 04/02/25 14:45 04/02/25 14:47 Temperature Pulse Rate 59 L 62 62 Pulse Rate [Pulse Oximeter] Respiratory Rate Blood Pressure 91/40 L 107/45 L Blood Pressure [Ri ght Upper Arm] Pulse Oximetry 100 98 98 [facility] 04/02/25 15:00 Temperature Pulse Rate 63 Pulse Rate [Pulse Oximeter] Respiratory Rate Blood Pressure Blood Pressure [Ri ght Upper Arm] Pulse Oximetry 100 Oxygen Delivery Me od Room Air Course Vital Signs Vital signs: Initial Vital Signs Temperature 97.6 F 04/02/25 12:20 Temperature Source Temporal Artery Scan 04/02/25 12:20 Pulse Rate 69 04/02/25 12:20 Pulse Rhythm Regular 04/02/25 12:20 Pulse Strength 3+ Normal 04/02/25 12:20 Respiratory Rate 16 04/02/25 12:20 Blood Pressure 116/42 L 04/02/25 12:20 Blood Pressure Mean 66 L 04/02/25 12:20 Blood Pressure Position Sitting 04/02/25 12:20 Pulse Oximetry 97 04/02/25 12:20 Oxygen Delivery Method Room Air 04/02/25 12:20 Vital Signs Temperature 97.6 F 04/02/25 12:20 Pulse Rate 69 04/02/25 12:20 Respiratory Rate 16 04/02/25 12:20 Blood Pressure 116/42 L 04/02/25 12:20 Pulse Oximetry 97 04/02/25 12:20 Oxygen Delivery Method Room Air 04/02/25 12:20 Temperature 97.6 F 04/02/25 12:20 Pulse Rate 63 04/02/25 15:00 Respiratory Rate 16 04/02/25 12:20 Blood Pressure 107/45 L 04/02/25 14:47 Pulse Oximetry 100 04/02/25 15:00 Oxygen Delivery Method Room Air 04/02/25 15:00 Medications Administered Medications: Discontinued Medications Generic Name Dose Route Start Last Admin Trade Name Fior PRN Reason Stop Dose Admin Sodium Chloride 500 mls @ 500 mls/hr 04/02/25 12:26 04/02/25 13:38 0.9 % Sodium Chloride 500 Ml IV 04/02/25 13:25 500 mls/hr .Q1H ONE Administration Sodium Zirconium Cyclosilicate 10 gm 04/02/25 14:31 04/02/25 14:42 Sodium Zirconium Cyclosilicate 10 Gm PO 04/02/25 14:32 10 gm ONCE ONE Administration Medical Decision Making MDM Narrative Medical decision making narrative: 75-year-old white male with multiple medical problems including multiple sclerosis, paraplegia, sacral grade 4 ulcer, osteomyelitis, bile drainage tube in place, cognitive impairment presents with concerns about breathing and blood pressure today. On presentation here his blood pressure is normal in his oximetry is 97%. I think because of the findings in skilled nursing would be reasonable to check a CT of his chest and abdomen given his debilitated state make sure does not have pneumonia, make sure does not have intra-abdominal pathology. Will also attempt to check a UA, lab studies, electrolytes common for completeness would do blood cultures x2. If these tests are reassuring I think he can go back and then proceed with his wound care process and other medical cares. Disposition pending findings in the lab studies above. Addendum 1:30 p.m.: The patient's CT scan of the abdomen chest show urinary bladder thickening Eason catheter in place, cholecystostomy tube in place improved gallbladder wall thickening. Chronic decubitus ulcer with chronic osteomyelitis of left this Gi. Nearly resolved trace right lower lobe clustered nodularity with a out acute pulmonary abnormality. Patient will get his labs done. Given he has remained non hypoxic and with no complaints, if he comes back with fairly reassuring lab studies will discharge him back to his skilled nursing, to continue his outpatient wound management cares and continue observation. Addendum 2:15 p.m.: The patient has chest and abdominal CTs as above, his laboratory studies for show a hemoglobin is low at 9.1, that is about he has been the last [place] [address]. Creatinine elevated 2.9 which has been baseline elevated. His potassium is slightly elevated at 6. Viral studies are negative. Because of the patient's elevated potassium will be given a potassium binder 1 dose here in the ER and they can recheck potassium in a few days. Would also recommend discussion of general care status and wishes for treatment and resuscitation with primary care in the next few days. At this point the patient can be safely discharged back to nursing care. Given the patient has a catheter it is no surprise his urine looks abnormal. Given he has no temperature, no white blood cell count elevation, I would recommend we see what his culture shows, if it is multi bacterial nature than probably chronic contaminant. Lab Data Labs: Lab Results 04/02/25 04/02/25 04/02/25 Range/Units 12:45 13:30 15:00 WBC 10.73 (4.50-11.00) K/uL RBC 3.61 L (4.30-5.90) m/uL Hgb 9.1 L (13.5-17.5) gm/dL Hct 29.7 L (37.0-53.0) % MCV 82 (80-100) fL MCH 25 L (26-34) pg MCHC 31 L (32-36) gm/dL RDW Coeff of Rey 18.2 H (11.5-15.5) % Plt Count 241 (140-440) K/uL Neut % (Auto) 77.2 H (42.0-72.0) % Lymph % (Auto) 13.0 L (20-44) % Forrest % (Auto) 5.9 (0.0-11.0) % Eos % (Auto) 3.1 (0.0-7.0) % Baso % (Auto) 0.2 (0.0-3.0) % Neut # (Auto) 8.30 H (1.7-7.0) K/uL Lymph # (Auto) 1.40 (0.90-2.90) K/uL Forrest # (Auto) 0.60 (0.00-0.90) K/UL Eos # (Auto) 0.33 (0.00-0.50) K/uL Baso # (Auto) 0.02 (0.00-0.30) K/uL Abs Immat Gran (auto) 0.06 (0.00-0.30) K/uL Imm/Tot Granulo (auto) 0.6 % INR 1.44 H (0.91-1.10) APTT 40 H (23-33) Seconds Sodium 131 L (135-149) mmol/L Potassium 6.0 H (3.6-5.1) mmol/L Chloride 99 (96-114) mmol/L Carbon Dioxide 26 (20-32) mmol/L Anion Gap 6 L (7-15) mEq/L BUN 41 H (7-30) mg/dL Creatinine 2.9 H (0.5-1.5) mg/dL Estimated Creat Clear 24.16 Estimated GFR 22 ml/min Glucose 129 H (60-115) mg/dL Lactate 1.9 (0.5-1.9) mmol/L Calcium 9.3 (8.4-10.6) mg/dL Total Bilirubin 0.4 (0.1-1.5) mg/dL Direct Bilirubin 0.2 (0.0-0.5) mg/dL AST 24 (12-35) U/L ALT 24 (4-50) U/L Alkaline Phosphatase 216 H (40-150) U/L Troponin I < 0.01 (0.01-0.04) ng/mL NT-Pro-B Natriuret Pep 801 H (See Note) pg/mL Total Protein 6.3 (6.0-8.3) g/dL Albumin 3.1 L (3.3-5.0) g/dL Urine Color Yellow (Yellow) Urine Appearance Slightly Cloudy A (Clear) Urine pH 6.0 (5.0-8.5) Ur Specific [place] <= 1.005 (1.000-1.030) Urine Protein 1+ A (Negative) Urine Glucose (UA) Negative (Negative) Urine Ketones Negative (Negative) Urine Blood 3+ A (Negative) Urine Nitrite Positive A (Negative) Urine Bilirubin 1+ A (Negative) Urine Urobilinogen 1.0 (0.2-1.0) Ur Leukocyte Esterase 2+ A (Negative) Urine RBC 50-100 A (0-2) Urine WBC 25-50 A (0-5) Ur Squamous Epith Cells Few (None-Few) Urine Bacteria Many A (None) Urine Yeast Many A (None) SARS-CoV-2 (PCR) Negative SARS-CoV-2 (Negative) Influenza Type A (PCR) Negative PCR FLU A (Negative) Influenza Type B (PCR) Negative PCR FLU B (Negative) RSV (PCR) Negative PCR RSV (Negative) Discharge Plan Discharge Clinical Impression: Stage IV pressure ulcer of left buttock, Diabetes mellitus, Osteomyelitis, Paraplegia, Cognitive impairment, Acute hyperkalemia Patient Disposition: Home w/ Parent or Adult Condition: Stable Additional Instructions: Continue present medicines, recommend recheck your potassium in 2-3 days. Discuss your general care with your primary care doctor again regarding treatment wishes. Prescriptions: No Action bacitracin 500 unit/gram ointment 1 applic topical BID sennosides-docusate sodium [Senna Plus] 8.6-50 mg tablet 2 tab-cap PO DAILY PRN Patient Comments: plus prn baclofen 10 mg tablet 10 mg PO BID Eliquis 5 mg tablet 5 mg PO BID atorvastatin 80 mg tablet 80 mg PO HS latanoprost 0.005 % drops 1 drp ophthalmic (eye) HS Rx Instructions: BOTH EYES Ear Wax Removal Kit 6.5 % drops 5 drp otic (ear) Q7D PRN Patient Comments: every Monday allopurinol 100 mg Tablet 100 mg PO DAILY Qty: 30 0RF clotrimazole 1 % cream 1 applic topical BID sennosides [senna] 8.6 mg tablet 17.2 mg PO DAILY PRN furosemide 40 mg tablet 40 mg PO DAILY metoprolol succinate 100 mg tablet extended release 24 hr 100 mg PO DAILY pantoprazole 40 mg tablet,delayed release (DR/EC) 40 mg PO BID calcium carbonate [Zachary-Gest Antacid] 200 mg calcium (500 mg) tablet,chewable 400 mg PO BID PRN polyethylene glycol 3350 17 gram/dose powder 17 g PO DAILY Patient Comments: plus prn lisinopril 40 mg tablet 40 mg PO DAILY cholecalciferol (vitamin D3) [Vitamin D3] 25 mcg (1,000 unit) tablet 25 mcg PO DAILY acetic acid 0.25 % solution See Rx Instructions .ROUTE BID Patient Comments: [NO ORIGINAL SIG] Rx Instructions: 1 APPLICATION twice a day AND PRN TO BUTTOCK WOUND oxycodone 5 mg tablet 5 mg PO Q6H PRN ferrous sulfate 325 mg (65 mg iron) Tablet 325 mg PO Q48H metformin 500 mg Tablet Extended Release 24 Hr 1,000 mg PO QPM ondansetron HCl 4 mg tablet 4 mg PO BID cetirizine 10 mg tablet 10 mg PO DAILY sertraline 25 mg tablet 25 mg PO DAILY fluticasone propionate 50 mcg/actuation spray,suspension INTRANASAL Follow Up/Referrals: Bijan Crawford MD [Primary Care Provider, Family Practice] [facility]
[2025-04-02 13:28] LABS: PCR FLU A Negative PCR FLU A (Negative); PCR FLU B Negative PCR FLU B (Negative); PCR RSV Negative PCR RSV (Negative); SARS PCR* Negative SARS-CoV-2 (Negative)
[2025-04-02] MEDS: 0.9 % SODIUM CHLORIDE 500 ML 500 ML IV (13:38)
[2025-04-02 13:39] LABS: Lactate* 1.9 mmol/L (0.5-1.9)
[2025-04-02 13:43] LABS: Hematocrit* 29.7 % (37.0-53.0); Hemoglobin* 9.1 gm/dL (13.5-17.5); Immature Granulocytes Abs Auto 0.06 K/uL (0.00-0.30); Immature Granulocytes Pct Auto 0.6 %; Mean Corpuscular HGB Conc 31 gm/dL (32-36); Mean Corpuscular Hemoglobin 25 pg (26-34); Mean Corpuscular Volume 82 fL (80-100); RDW Coefficient of Variation % 18.2 % (11.5-15.5); Red Blood Count* 3.61 m/uL (4.30-5.90); White Blood Count* 10.73 K/uL (4.50-11.00)
[2025-04-02 14:05] LABS: Albumin* 3.1 g/dL (3.3-5.0); Chloride* 99 mmol/L (96-114); Sodium* 131 mmol/L (135-149)
[2025-04-02 14:06] LABS: INR 1.44 (0.91-1.10); Prothrombin Time 18.5 Seconds
[2025-04-02 14:08] LABS: Alanine Aminotransferase* 24 U/L (4-50); Alkaline Phosphatase* 216 U/L (40-150); Anion Gap 6 mEq/L (7-15); Aspartate Amino Transferase* 24 U/L (12-35); Bilirubin Direct* 0.2 mg/dL (0.0-0.5); Bilirubin Total* 0.4 mg/dL (0.1-1.5); Blood Urea Nitrogen* 41 mg/dL (7-30); Carbon Dioxide* 26 mmol/L (20-32); Creatinine* 2.9 mg/dL (0.5-1.5); Est. Creatinine Clearance* 24.16; Estimated Glomerular Filt Rate 22 ml/min; Lymphocytes Absolute Auto 1.40 K/uL (0.90-2.90); Potassium* 6.0 mmol/L (3.6-5.1); Slide Review Reflex No; Total Protein* 6.3 g/dL (6.0-8.3)
[2025-04-02 14:09] LABS: Calcium* 9.3 mg/dL (8.4-10.6); Glucose* 129 mg/dL (60-115)
[2025-04-02 14:28] LABS: NT Pro B Type NatriureticPept* 801 pg/mL (See Note)
[2025-04-02] MEDS: SODIUM ZIRCONIUM CYCLOSILICATE 10 GM PO (14:42)
[2025-04-02 15:24] LABS: Appearance Urine Slightly Cloudy (Clear)
== END 2025-04-02 15:22 | disposition home or self-care (01) ==
PROVIDERS: Emergency Provider Family Medicine; PCP Family Medicine
DX: L89.324 Pressure ulcer of left buttock, stage 4 (principal); E11.9 Type 2 diabetes mellitus without complications; M86.9 Osteomyelitis, unspecified; E87.5 Hyperkalemia; G31.84 Mild cognitive impairment of uncertain or unknown etiology
CPT/HCPCS: 36415; 71250; 74176; 80048; 80076; 81001; 83605; 83880; 84484; 85025; 85610; 85730; 87040; 87086; 87186; 87631; 99285; J7030

== ENCOUNTER 2025-04-02 15:11 | Outpatient (CLI) | payer MEDICARE, SELFPAY | END 2025-04-02 15:12 | disposition home or self-care (01) | LOC: AMB 04-04 10:40 | PROVIDERS: PCP Family Medicine; Visit Provider Family Medicine | DX: L89.324 Pressure ulcer of left buttock, stage 4 (principal); E11.9 Type 2 diabetes mellitus without complications; M86.9 Osteomyelitis, unspecified; G82.20 Paraplegia, unspecified | CPT/HCPCS: A0425; A0428 ==

== ENCOUNTER 2025-04-08 13:04 | Outpatient (CLI) | payer MEDICARE, SELFPAY | END 2025-04-08 13:05 | disposition home or self-care (01) | PROVIDERS: PCP Family Medicine; Visit Provider Student in an Organized Health Care Education/Training Program | DX: R79.89 Other specified abnormal findings of blood chemistry (principal) | CPT/HCPCS: A0425; A0429 ==

== ENCOUNTER 2025-04-08 13:18 | Emergency (ER) | payer MEDICARE, SELFPAY ==
--- OUTSIDE RECORDS SUMMARY | 2025-02-22 | XMS_ITS | Encounter Summary ---
Author Organization [facility] Address [address] [place] [address] Care Team Providers Care Mangle Roller Name Role Phone Jeff Reyes M.D. 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 [address] [place] [phone] Phone: tel: fax: [facility] Region Referral ID Status Reason Start Date Expiration Date V isits Requested Visits Authorized [id number] Authorized 02/27/2025 05/30/2026 1 1 * Outpatient (Routine) - Authorized Specialty Diagnoses / Procedures Referred By Contac t Referred To Contact Ren Sung M.D. [address] [place] [phone] Phone: tel: fax: [facility] Region Referral ID Status Reason Start Date Expiration Date V isits Requested Visits Authorized [id number] Authorized 02/26/2025 08/28/2026 1 1 Scheduling Instructions We will be contacting you with more information on this referral. An appointment will be scheduled for you. More information is listed below. Reason for Visit * Auth/Cert (Routine) Specialty Diagnoses / Procedures Referred By Contac t Referred To Contact Diagnoses Encephalopathy Metabolic sacral wound infection BISHOP acute confusion acute on chronic cholecystitis Procedures INPT Referral ID Status Reason Start Date Expiration Date Visits Re quested Visits Authorized [id number] 1 1 Encounter Details Date Type Department Care Team (Latest Contact Info) Description 02/22/2025 - 02/27/2025 12:16 PM CDT Hospital Encounter [facility], Fourth Floor [facility] [place] [phone] Nneka Thomas M.B.B.S., Shankar [address] [place] [phone] Nelson Chand M.D. [address] [place] [phone] Ren Sung M.D. 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 Patient unable to answer 02/27/2025 Within the last year, have y ou been humiliated or emotionally abused in other ways by your partner or ex-partner? Patient unable to answer 02/27/2025 Within the last year, have y ou been kicked, hit, slapped, or otherwise physically hurt by your partner or ex-partner? Patient unable to answer 02/27/2025 Within the last year, have y ou been raped or forced to have any kind of sexual activity by your partner or ex-partner? Patient unable to answer 02/27/2025 Hunger Vital Sign Answer Date Recorded Within the past 12 months, y ou worried that your food would run out before you got the money to buy more. Patient unable to answer 02/27/2025 Within the past 12 months, t he food you bought just didn't last and you didn't have money to get more. Patient unable to answer 02/27/2025 PRAPARE - Transportation Answer Date Re corded In the past 12 months, has l ack of transportation kept you from medical appointments or from getting medications? Patient unable to answer 02/27/2025 In the past 12 months, has l ack of transportation kept you from meetings, work, or from getting things needed for daily living? Patient unable to answer 02/27/2025 [facility] Utilities Answer Date Recorded In the past 12 months has [employer] electric, gas, oil, or water company threatened to shut off services in your home? Patient unable to answer 02/27/2025 Housing Stability Answer Date Recorded What is your living situation today? Patient pauline ble to answer 02/27/2025 Education Answer Date Recorded What is the highest level of school you have completed or the highest degree you have received? 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[employer] Gender Identity Not on file Sexual Orientation Not on file documented as of this encounter Last Filed Vital Signs Vital Sign Reading Time Taken Comments Blood Pressure 149/52 02/27/2025 5:32 AM CDT Pulse 72 02/27/2025 5:32 AM CDT Temperature 36.8 C (98.2 F) 02/27/2025 5:32 AM CDT Respiratory Rate 16 02/27/2025 5:32 AM CDT Oxygen Saturation 96% 02/27/2025 5:32 AM CDT Inhaled Oxygen Concentration - - Weight 100 kg (220 lb 7.4 oz) 02/27/2025 5:33 AM CDT Height 182.9 cm (6' 0.01) 02/22/2025 12:08 AM C DT Body Mass Index 29.89 02/22/2025 12:08 AM CDT documented in this encounter Discharge Summaries * Ren Sung M.D. - 02/27/2025 9:24 AM CDT Images from the original note were not included. Date of Admission: 02/22/2025 Admitting Physician: Pari Villanueva M.D. Date of Discharge: 02/27/2025 Discharging Physician:Ren Sung M.D. PRIMARY DISCHARGE DIAGNOSES # Metabolic encephalopathy # Sepsis, gram negative bacillus blood stream of uncertain source # Concern Dysphagia HOSPITAL COURSE Ren Ramirez is a 75 y.o. gentleman with complex comorbidities including multiple sclerosis, paraplegia with chronic decubitus ulcer complicated by chronic ischial osteomyelitis, history of DVT and PE on Eliquis, diabetes mellitus type 2, hypertension, coronary artery disease, cholecystitisstatus post percutaneous cholecystostomy tube placement last exchanged 02/04/2025, neurogenic bladder and bowel. Patient presented from [facility] to [facility] Emergency Department 02/21 due to altered mental status, generalized pain with moaning, slurring his speech and eventually was briefly aphasic. Because of the aphasia, EMS activated pre-hospital stroke evaluation however it was reported that they were not convinced this was a stroke. On arrival to ED, were not able to detect any other focal deficits and patient was able to verbalize but unable to engage in meaningful conversation. He was found to be in BISHOP and also imaging studies at [place] showed: CT head Impression: No acute hemorrhage or large terriotry infarct. CT CAP Impression: 1. Improvement in minimal right lower lobe ground-glass and nodularity compared to a chest CT on 02/05/2025, likely aspiration. 2. Decompressed gallbladder with a cholecystostomy in place. Persistent indeterminate thickening and stranding of the gallbladder likely reflect chronic cholecystitis. 3. Indeterminate urinary bladder wall thickening with a Greco catheter in place. Recommend correlation with urinalysis. 4. Redemonstrated large soft tissue defect along the left ischial tuberosity with evidence of chronic osteomyelitis. Smaller soft tissue defect along the left posterior iliac bone with unchanged subtle sclerosis. No drainable fluid collection. The patient was eventually transferred to [facility] for further care, as it was suspected that the encephalopathy was secondary to underlying infection, most likely due to biliary source. Patient was started on broad spectrum antibiotics including Meropenem. Infectious disease was consulted and recommended transition to IV Ertapenem with end date 03/01/2025. His mental status did improve. Case was also reviewed by GI and general surgery, no acute intervention was deemed necessary. Follow as outpatient with general surgery to consider elective cholecystectomy. In terms of BISHOP, it was clearly pre-renal as his Cr returned to normal range after IVF. Consults: IP CONSULT TO CARE MANAGEMENT IP CONSULT TO CARE MANAGEMENT IP CONSULT TO DIETITIAN IP CONSULT TO GENERAL SURGERY IP CONSULT TO INFECTIOUS DISEASES IP CONSULT TO ORTHOPEDIC SURGERY IP CONSULT TO PALLIATIVE CARE IP CONSULT TO WOUND CARE IP CONSULT TO GASTROENTEROLOGY IP CONSULT TO DIETITIAN DISCHARGE EXAMINATION General: Alert and oriented. No acute distress. HEENT: NCAT. No scleral icterus. Oral mucosa moist. Neck: Supple. No lymphadenopathy. Cardiovascular: Normal S1/S2. No murmurs. Lungs: Clear to auscultation bilaterally. Abdomen: Soft, NT, ND, +BS. Extremities: No BLE edema. Neurological: Grossly intact. VITAL SIGNS Vitals: 02/27/25 0532 BP: (!) 149/52 Pulse: 72 Resp: 16 Temp: 36.8 ??C SpO2: 96% Discharge Condition: stable Discharge Medications: Discharge Medications TAKE these medications acetaminophen 500 mg tablet Commonly known as: TylenoL Take 2 tablets (1,000 mg total) by mouth 3 (three) times a day. acetic acid 0.25 % irrigation (sterile) Apply to buttocks wounds topically as needed for wound care allopurinoL 100 mg tablet Commonly known as: Zyloprim Take 100 mg by mouth daily. AntifungaL (clotrimazole) 1 % cream Apply 1 Application topically 2 (two) times a day. Generic drug: clotrimazole apixaban 5 mg tablet Commonly known as: Eliquis Take 5 mg by mouth 2 (two) times a day. atorvastatin 80 mg tablet Commonly known as: Lipitor Take 1 tablet (80 mg total) by mouth at bedtime. bacitracin 500 unit/gram ointment Apply 1 Application topically 2 (two) times a day. baclofen 10 mg tablet Commonly known as: LioresaL Take 1 tablet (10 mg total) by mouth 2 (two) times a day. * BD PosiFlush Normal Saline 0.9 injection Use 10 mL via irrigation every day Generic drug: sodium chloride * sodium chloride 0.9 % injection 10 mL by intra-catheter route 2 (two) times a day for 4 days. Please flush 10 mL before and after antibiotic administration calcium carbonate 500 mg (200 mg calcium) chewable tablet Commonly known as: Tums Chew 2 tablets (400 mg of calcium total) 2 (two) times a day. cetirizine 10 mg tablet Commonly known as: ZyrTEC Take 10 mg by mouth at bedtime. cholecalciferol 25 mcg (1,000 unit) tablet Take 1 tablet (25 mcg total) by mouth daily. Generic drug: cholecalciferol (vitamin D3) Debrox 6.5 % otic solution Administer 5 drops into each ear as needed. Generic drug: carbamide peroxide diclofenac sodium 1 % gel Commonly known as: Voltaren Apply 2 g topically 2 (two) times a day as needed (pain). ertapenem 100 mg/mL injection Commonly known as: INVanz Infuse 10 mL (1 g total) into a venous catheter daily for 4 days. ferrous sulfate tablet Take 325 mg by mouth every other day. fluticasone propionate 50 mcg/actuation nasal spray Commonly known as: Flonase Administer 1 spray into each nostril 2 (two) times a day. furosemide 40 mg tablet Commonly known as: Lasix Take 40 mg by mouth every morning. latanoprost 0.005 % ophthalmic solution Commonly known as: Xalatan Administer 1 drop into both eyes daily. lisinopriL 40 mg tablet Take 1 tablet (40 mg total) by mouth daily. metFORMIN XR 500 mg 24 hr tablet Commonly known as: Glucophage-XR Take 1,000 mg by mouth daily with evening meal. metoprolol succinate 100 mg 24 hr tablet Commonly known as: Toprol XL Take 1 tablet (100 mg total) by mouth daily. Do not crush or chew. nitroglycerin 0.4 mg SL tablet Commonly known as: Nitrostat Place 0.4 mg under the tongue every 5 (five) minutes as needed for chest pain. ondansetron 4 mg tablet Commonly known as: Zofran Take 4 mg by mouth every 6 (six) hours as needed for nausea or vomiting. oxyCODONE 5 mg immediate release tablet Commonly known as: Roxicodone Take 5 mg by mouth every 6 (six) hours as needed for severe pain or score 7-10 of 10. pantoprazole 40 mg EC tablet Commonly known [...] 2 (two) times a day with meals. saliva substitution mouthwash Commonly known as: Biotene Dry Mouth Oral Rinse Apply 1 Application to the mouth or throat as needed (dry mouth). senna 8.6 mg tablet Take 17.2 mg by mouth every morning. Generic drug: sennosides sennosides-docusate sodium 8.6-50 mg per tablet Commonly known as: Senokot-S Take 1 tablet by mouth 2 (two) times a day as needed for constipation. * There are duplicate medications prescribed to the patient Procedures during admission: DIAGNOSTICS Imaging: IR Percutaneous Cholecystostomy Tube Check Final Result 1. Patent cholecystostomy tube. 2. Intermittent cystic duct obstruction; cystic duct is open on today's exam. 3. Common bile duct sludge without causing hepatic ductal dilatation. RAD US Joint Aspiration and or Injection Right Final Result 1. US-guided right wrist joint aspiration. DX Knee Right 4+ Views Final Result Demineralization. No acute fracture. Moderate tricompartmental arthritis. Tiny joint effusion. Chondrocalcinosis. Small suprapatellar spur. DX Wrist Right 3+ Views Final Result Spotty demineralization. No apparent fractures. Slight ulna minus variance. Chondrocalcinosis although to a much lesser degree than in 2017. Labs: Results from last 7 days Lab Units 02/26/25 0621 02/25/25 0759 02/24/25 0544 WBC x10(9)/L 6.9 7.0 6.8 HEMOGLOBIN g/dL 9.2* 9.1* 9.2* HEMATOCRIT % 30.2* 29.8* 30.2* PLATELETS AUTO x10(9)/L 197 201 222 Results from last 7 days Lab Units 02/27/25 0637 02/26/25 0621 02/25/25 0759 SODIUM P mmol/L 139 143 144 CHLORIDE P mmol/L 109* 110* 111* BUN P mg/dL 14 15 17 CREATININE mg/dL 0.64* 0.85 0.88 CALCIUM P mg/dL 8.7* 8.8 9.5 ALBUMIN P g/dL 2.7* 2.7* 2.9* BILIRUBIN TOTAL P mg/dL 0.4 0.4 0.4 ALK PHOS P U/L 633* 702* 705* ALT P U/L 60* 96* 90* AST P U/L 50* 56* 53* Disposition: [facility] facility Pending Labs at Discharge: Pending Labs Order Current Status Bacterial Culture, Anaerobic + Susceptibility Preliminary result Patient Instructions: Refer to the After Visit Summary for this admission. Follow-up Appointments: Scheduled Appointments 03/04/2025 9:[address] [facility] Radiology 03/13/2025 2:40 PM Pablo Vo M.D. Hematology Oncology For appointment details refer to your Patient Appointment Guide. Total time spent 45 minutes, 30 minutes spent in [id number] evaluation and coordination of care. Ren Sung MD [facility] Medicine Service documented in this encounter Medications at Time of Discharge acetaminophen (TylenoL) 500 mg tablet Take 2 tablets (1,000 mg total) by mouth 3 (three) times a day. 5 acetic acid 0.25 % irrigation (sterile) Apply to buttocks wounds topically as needed for wound care allopurinoL (Zyloprim) 100 mg tablet Take 100 mg by mouth daily. AntifungaL, clotrimazole, 1 % cream Apply 1 Application topically 2 (two) times a day. 4 apixaban (Eliquis) 5 mg tablet Take 5 mg by mouth 2 (two) times a day. 5 atorvastatin (Lipitor) 80 mg tablet Take 1 tablet (80 mg total) by mouth at bedtime. 90 tablet 3 04/18/202 5 bacitracin 500 unit/gram ointment Apply 1 Application topically 2 (two) times a day. 4 BD PosiFlush Normal Saline 0.9 injection Use 10 mL via irrigation every day 5 calcium carbonate (TUMS) 500 mg (200 mg calcium) chewable tablet Chew 2 tablets (400 mg of calcium total) 2 (two) times a day. 3 carbamide peroxide (Debrox) 6.5 % otic solution Administer 5 drops into each ear as needed. cetirizine (ZyrTEC) 10 mg tablet Take 10 mg by mouth at bedtime. cholecalciferol 25 mcg (1,000 unit) tablet Take 1 tablet (25 mcg total) by mouth daily. 5 diclofenac sodium (Voltaren) 1 % gelIndications:Mu ltiple Sclerosis (HCC) Apply 2 g topically 2 (two) times a day as needed (pain). 5 ferrous sulfate tablet Take 325 mg by mouth every other day. fluticasone propionate (Flonase) 50 mcg/actuation nasal spray Administer 1 spray into each nostril 2 (two) times a day. 5 furosemide (Lasix) 40 mg tablet Take 40 mg by mouth every morning. latanoprost (XALATAN) 0.005 % ophthalmic solution Administer 1 drop into both eyes daily. 3 lisinopriL (PRINIVIL,ZESTRIL ) 40 mg tabletIndications :Hypertension Essential Primary Take 1 tablet (40 mg total) by mouth daily. 90 tablet 3 metFORMIN XR (Glucophage-XR) 500 mg 24 hr tablet Take 1,000 mg by mouth daily with evening meal. metoprolol succinate (TOPROL-XL) 100 mg 24 hr tabletIndications :Hypertension Essential Primary Take 1 tablet (100 mg total) by mouth daily. Do not crush or chew. 90 tablet 3 nitroglycerin (Nitrostat) 0.[address] 0.4 mg under the tongue every 5 (five) minutes as needed for chest pain. 5 ondansetron (ZOFRAN) 4 mg tablet Take 4 mg by mouth every 6 (six) hours as needed for nausea or vomiting. 3 oxyCODONE (Roxicodone) 5 mg immediate release tabletIndications :Acute Pain Exception Take 1 tablet (5 mg total) by mouth every 6 (six) hours as needed for severe pain or score 7-10 of 10 Indication: Acute Pain Exception. 12 tablet 5 pantoprazole (PROTONIX) 40 mg EC tablet Take 1 tablet (40 mg total) by mouth 2 (two) times a day before breakfast and dinner. 180 tablet 3 3 polyethylene glycol (MIRALAX) 17 gram powder packet Take 1 packet (17 g total) by mouth daily as needed for constipation. Dissolve each 17 g dose in 240 mLs (8 ounces) of beverage. 30 each 1 3 potassium chloride 10 mEq ER capsule Take 1 capsule (10 mEq total) by mouth 2 (two) times a day with meals. 5 saliva substitution (Biotene Dry Mouth Oral Rinse) mouthwash Apply 1 Application to the mouth or throat as needed (dry mouth). senna 8.6 mg tablet Take 17.2 mg by mouth every morning. 5 sennosides-docusa te sodium (SENOKOT-S) 8.6-50 mg per tabletIndications :Neurogenic Bowel Take 1 tablet by mouth 2 (two) times a day as needed for constipation. 8 ertapenem (INVanz) 100 mg/mL injectionIndicati ons: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) Infuse 10 mL (1 g total) into a venous catheter daily for 4 days. 5 03/01/20 25 sodium chloride 0.9 % injection 10 mL by intra-catheter route 2 (two) times a day for 4 days. Please flush 10 mL before and after antibiotic administration 80 mL 5 03/01/20 25 documented as of this encounter Progress Notes * Anabella Parmar - 02/27/2025 9:29 AM CDT SUBJECTIVE Patient is a 75 y.o. male who was admitted to [facility] 02/22/2025 due to Encephalopathy Metabolic [G93.41]. Social work was consulted to assist with discharge planning. A psychosocial assessment was completed on 08/09/[address] [facility] [place]. OBJECTIVE Patient Active Problem List Diagnosis Code Hypertension Essential Primary I10 Multiple Sclerosis (HCC) G35 Hypokalemia E87.6 Neuromuscular Dysfunction Of Bladder Unspecified N31.9 Neurogenic Bowel K59.2 Hypoalbuminemia E88.09 Atherosclerotic Heart Disease Of [place] Coronary Artery Without Angina Pectoris I25.10 Paraparesis Spastic ([facility]) G82.20 Abdominal Pain R10.9 Hematemesis K92.0 Hematochezia K92.1 Nausea R11.0 COVID-19 Infection U07.1 Apnea Sleep Obstructive G47.33 Lymphedema I89.0 Weakness General R53.1 Body Mass Index 33.0 To 33.9 Adult Z68.33 Acute Cystitis With Hematuria N30.01 Fracture Femoral Condyle Closed Initial Right ([facility]) S72.411A Fracture Hip Closed Initial Right ([facility]) S72.001A Osteoporosis Hip With Pathological Fracture Initial Right ([facility]) M80.051A Open Reduction Internal Fixation Hip Status Post Z97.8 Paraplegia ([facility]) G82.20 Embolus Pulmonary ([facility]) I26.99 Acute Embolism And Thrombosis Of Other Specified Deep Vein Of Lower Extremity Bilateral ([facility]) I82.493 Body Mass Index 34.0 To 34.9 Adult Z68.34 Encephalopathy Metabolic G93.41 Pressure Injury (Ulcer) Of Sacral Region Stage 4 ([facility]) L89.154 ASSESSMENT / PLAN ASSESSMENT Patient not formally assessed. Coordination of care only. INTERVENTION Group Leader completed bedside team rounds with Dr. Sung and nursing. Patient is medically ready for discharge. Patient will have a midline placed before discharge. Group Leader sent message to [facility] notifying them of discharge time of 1200 from [facility] and that patient would be discharging with a midline. PLAN 1. Social work will assist as needed and requested. Anabella Parmar 02/27/25 * Mackenzie Wells - 02/27/2025 8:50 AM CDT Date and time discharge transportation arranged for: 02/27 @ 1200 Meet at door: C Nurse's station: [phone] Transportation company: [employer]) ([phone]) Type of transport: Wheelchair needs to be provided Destination: [facility] Transportation will be paid for by: Insurance Cost: na Bariatric: no Legs extended: no Needing Oxygen: no * Naldo Underwood - 02/26/2025 1:55 PM CDT Palliative Medicine Music Therapy Assessment Note Patient: Ren Ramirez Age:75 y.o. Location: [place] [address] Date of Encounter: 02/26/2025 Time of Encounter: 1355 Visit Duration: 5 min Reason(s) of encounter: Coping, Quality of Life, and Symptom Management Summary: Upon arrival, Mr. Ramirez (Ren) was seated upright with his eyes open; BAG MENDER was present. He endorsed pain on his buttocks when asked about general well-being today. Music therapy services were introduced to Ren, who declined today due to feeling busy. However, he shared preferred music (50s, doo-wop) and expressed that he used Spotify at home to listen to preferred music regularly. He expressed gratitude for check-in. Music Therapy Assessment Music Preference: Easy Listening, described as 50s music/doo-wop Music Therapy interventions: Introduction of music therapy service and overview of resources Plan / Recommendations: Music therapy will continue to support Mr. Ramirez as a part of the Palliative Medicine plan of care. Naldo Underwood Palliative Care Music Therapist * Twyla Arita M.S., CCC-DOPE AND FABRIC WORKER - 02/26/2025 1:24 PM CDT Per RN, patient tolerating diet of regular textures and thin liquids with no current concerns. Continue diet as recommended. No further acute speech therapy needs identified at this time. Speech therapy signing off of patient's care, however certainly reconsult should the need arise. * Anabella Parmar R - 02/26/2025 10:20 AM CDT SUBJECTIVE Patient is a 75 y.o. male who was admitted to [facility] 02/22/2025 due to Encephalopathy Metabolic [G93.41]. Social work was consulted to assist with discharge planning. A psychosocial assessment was completed on 08/09/2024 by DEANGELO Damon. OBJECTIVE Patient Active Problem List Diagnosis Code Hypertension Essential Primary I10 Multiple Sclerosis (HCC) G35 Hypokalemia E87.6 Neuromuscular Dysfunction Of Bladder Unspecified N31.9 Neurogenic Bowel K59.2 Hypoalbuminemia E88.09 Atherosclerotic Heart Disease Of [place] Coronary Artery Without Angina Pectoris I25.10 Paraparesis Spastic ([facility]) G82.20 Abdominal Pain R10.9 Hematemesis K92.0 Hematochezia K92.1 Nausea R11.0 COVID-19 Infection U07.1 Apnea Sleep Obstructive G47.33 Lymphedema I89.0 Weakness General R53.1 Body Mass Index 33.0 To 33.9 Adult Z68.33 Acute Cystitis With Hematuria N30.01 Fracture Femoral Condyle Closed Initial Right ([facility]) S72.411A Fracture Hip Closed Initial Right ([facility]) S72.001A Osteoporosis Hip With Pathological Fracture Initial Right ([facility]) M80.051A Open Reduction Internal Fixation Hip Status Post Z97.8 Paraplegia ([facility]) G82.20 Embolus Pulmonary ([facility]) I26.99 Acute Embolism And Thrombosis Of Other Specified Deep Vein Of Lower Extremity Bilateral ([facility]) I82.493 Body Mass Index 34.0 To 34.9 Adult Z68.34 Encephalopathy Metabolic G93.41 Pressure Injury (Ulcer) Of Sacral Region Stage 4 ([facility]) L89.154 ASSESSMENT / PLAN ASSESSMENT Patient not formally assessed. Coordination of care only. INTERVENTION Group Leader completed bedside team rounds with Dr. Sung and nursing. Patient is not medically ready for discharge. Group Leader sent message via [employer] and left a voicemail for facility pediatric social worker, Mike, to clarify if facility would be able to accommodate wound vac and if IV antibiotic has been ordered for patient to discharge with. Group Leader received message back in [employer] that patient is able to return. Group Leader notified Dr. Sung and JEAN CARLOS Roger, that patient will discharge tomorrow. Group Leader requested CMAs arrange wheelchair transport using patient's insurance, [employer], to coverthe cost of transportation. PLAN 1. Social work will assist as needed and requested. Anabella Parmar 02/26/25 * Ren Sung M.D. - 02/26/2025 9:39 AM CDT Images from the original note were not included. Internal Medicine Progress Note Date of Admission: 02/22/2025 LOS: 4 days Primary Care Physician: Jeff Reyes M.D. SUBJECTIVE REASON FOR ADMISSION: Encephalopathy Metabolic Ren Ramirez is a 75 y.o. gentleman with complex comorbidities including multiple sclerosis, paraplegia with chronic decubitus ulcer complicated by chronic ischial osteomyelitis, history of DVT and PE on Eliquis, diabetes mellitus type 2, hypertension, coronary artery disease, cholecystitisstatus post percutaneous cholecystostomy tube placement last exchanged 02/04/2025, neurogenic bladder and bowel. Patient presented from SNF to [facility] Emergency Department 02/21 due to altered mental status, generalized pain with moaning, slurring his speech and eventually was briefly aphasic. Because of the aphasia, EMS activated pre-hospital stroke evaluation however it was reported that they were not convinced this was a stroke. On arrival to ED, were not able to detect any other focal deficits and patient was able to verbalize but unable to engage in meaningful conversation. He was found to be in BISHOP and also imaging studies at [facility] showed: CT head Impression: No acute hemorrhage or large terriotry infarct. CT CAP Impression: 1. Improvement in minimal right lower lobe ground-glass and nodularity compared to a chest CT on 02/05/2025, likely aspiration. 2. Decompressed gallbladder with a cholecystostomy in place. Persistent indeterminate thickening and stranding of the gallbladder likely reflect chronic cholecystitis. 3. Indeterminate urinary bladder wall thickening with a Greco catheter in place. Recommend correlation with urinalysis. 4. Redemonstrated large soft tissue defect along the left ischial tuberosity with evidence of chronic osteomyelitis. Smaller soft tissue defect along the left posterior iliac bone with unchanged subtle sclerosis. No drainable fluid collection. The patient was eventually transferred to [facility] for further care, as it was suspected that the encephalopathy was secondary to underlying infection, however the source was not clear. Patient was started on broad spectrum antibiotics including Meropenem. Interval Updates Today the patient is more with it and oriented to person and place. Answers questions appropriately, no obvious report of hallucination or delirium. Denied having any abdominal pain at this time. Intake/Output Summary (Last 24 hours) at 02/26/2025 0939 Last data filed at 02/26/2025 0838 Gross per 24 hour Intake 1270 ml Output 950 ml Net 320 ml OBJECTIVE VITAL SIGNS BP 153/60 (BP Location: Left arm;Upper, Patient Position: Semi-recumbent) Pulse 78 Temp 37.2 ??C (Temporal) Resp 24 Ht 182.9 cm Wt 94.2 kg SpO2 97% BMI 28.16 kg/m?? PHYSICAL EXAMINATION General: Alert and Orientated to self and place. HEENT: Normocephalic, atraumatic. No scleral icterus. Cardiovascular: Normal rate, regular rhythm. Lungs: Clear to Auscultation Abdomen: Soft, nontender, nondistended. Extremities: No bilateral lower extremity edema. B/l UE range of motion preserved. Patient is paraplegic. Intake/Output Summary (Last 24 hours) at 02/26/2025 0939 Last data filed at 02/26/2025 0838 Gross per 24 hour Intake 1270 ml Output 950 ml Net 320 ml DIAGNOSTICS Results from last 7 days Lab Units 02/26/25 0602/25/2575802/24/25 0544 WBC x10(9)/L 6.9 7.0 6.8 HEMOGLOBIN g/dL 9.2* 9.1* 9.2* HEMATOCRIT % 30.2* 29.8* 30.2* PLATELETS AUTO x10(9)/L 197 201 222 Results from last 7 days Lab Units 02/26/25 0602/25/25 07502/24/25 0544 SODIUM P mmol/L 143 144 143 CHLORIDE P mmol/L 110* 111* 109* BUN P mg/dL 15 17 25* CREATININE mg/dL 0.85 0.88 1.02 CALCIUM P mg/dL 8.8 9.5 9.5 Results from last 7 days Lab Units 02/26/25 0621 02/25/25 0759 02/24/25 0544 02/23/25 0617 02/22/25 1513 02/22/25 0428 02/22/25 0428 ALBUMIN P g/dL 2.7* 2.9* 2.8* 2.6* 2.8* -- 3.0* AST P U/L 56* 53* 112* 163* 214* -- 292* ALT P U/L 96* 90* 131* 150* 184* -- 195* ALK PHOS P U/L 702* 705* 749* 796* 995* -- 1008* BILIRUBIN DIRECT P mg/dL -- 0.3 0.5* 1.0* 1.7* < > -- BILIRUBIN TOTAL P mg/dL 0.4 0.4 0.7 1.3* 2.2* -- 1.5* < > = values in this interval not displayed. Micro: Results for orders placed or performed during the hospital encounter of 02/22/25 (from the past 2 weeks) Bacterial Culture, Aerobic + Susceptibility, Urine Specimen: Urine, Indwelling Catheter Specimen Source Site: Urine Result Value Urine Culture No growth after 1 day of incubation. SARS CoV-2, Influenza A/B, RSV, PCR Symptomatic Specimen: Nasopharynx; Swab Result Value Influenza A, PCR Undetected Influenza B, PCR Undetected Respiratory Syncytial Virus, PCR Undetected [id number], PCR Undetected Specimen Source Swab, Nasopharynx Gram Stain Specimen: Synovial Fluid, Right Wrist Specimen Source Site: Fluid Result Value Gram Stain No organisms seen. White blood cells present. Stain performed on concentrated cytospin preparation. Radiology: Reviewed pertinent radiology reports. Last 2 days: IR Percutaneous Cholecystostomy Tube Check Result Date: 02/22/2025 Impression: 1. Patent cholecystostomy tube. 2. Intermittent cystic duct obstruction; cystic duct isopen on today's exam. 3. Common bile duct sludge without causing hepatic ductal dilatation. RAD US Joint Aspiration and or Injection Right Result Date: 02/22/2025 Impression: 1. US-guided right wrist joint aspiration. DX Wrist Right 3+ Views Result Date: 02/22/2025 Impression: Spotty demineralization. No apparent fractures. Slight ulna minus variance. Chondrocalcinosis although to a much lesser degree than in 2017. DX Knee Right 4+ Views Result Date: 02/22/2025 Impression: Demineralization. No acute fracture. Moderate tricompartmental arthritis. Tiny joint effusion. Chondrocalcinosis. Small suprapatellar spur. MEDICATIONS: Scheduled Meds: allopurinoL, 100 mg, oral, Daily apixaban, 5 mg, oral, BID atorvastatin, 80 mg, oral, Daily at bedtime bacitracin, 1 Application, topical, BID baclofen, 10 mg, oral, BID diclofenac sodium, 2 g, topical, 4x Daily ertapenem, 1 g, intravenous, Daily ferrous sulfate, 65 mg of iron, oral, Daily with morning meal furosemide, 40 mg, oral, QAM insulin aspart, 0-7 Units, subcutaneous, TID latanoprost, 1 drop, both eyes, Daily lisinopriL, 40 mg, oral, Daily loratadine, 10 mg, oral, Daily at bedtime melatonin, 4.5 mg, oral, Daily at bedtime metoprolol tartrate, 50 mg, oral, BID pantoprazole, 40 mg, oral, BID before morning and evening meals sennosides, 8.6 mg, oral, BID sodium chloride, 3 mL, intravenous, Q24H BERONICA Continuous Infusions: PRN Meds: acetaminophen D5W fentaNYL (PF) NaCl 0.9% NaCl 0.9% ondansetron oxyCODONE polyethylene glycol sennosides-docusate sodium sodium chloride sodium chloride ASSESSMENT / PLAN # Metabolic encephalopathy # Sepsis, gram negative bacillus blood stream of uncertain source - Blood cultures came back positive for gram negative aden in aerobic bottle 1 out of 2 sets from [facility]. We are still awaiting speciation ([facility]: [id number]). Other contributing factor for the encephalopathy including dehydration and BISHOP (now resolved). - His mental status is slowly improving yet not back to baseline. No longer having any slurred speech, but is delirious. - Repeat blood culture obtained in our hospital have all been negative so far. - Appreciate infectious disease recommendations, recommended Ertapenem 1 g IV Q 24 last day of therapy March 01. This can be arranged at LT if patient ready for discharge prior to end of treatment. # Concern Dysphagia - Initially DOPE AND FABRIC WORKER recommended SB6 and mildly thick liquid. This has improved and currently on regularthin. 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 Evaluated by general surgery and do not feel there is evidence of acute infection orneed for debridement. CT was reassuring, ruled out deep fluid collection. There is plan to follow with plastic surgery as outpatient however patient had been repeatedly admitted to the hospital for other reasons . - Wound care team following. # Chronic cholecystitis s/p cholecystostomy tube # Elevated liver enzymes, with cholestatic pattern, with concern for CBD stenosis superior to the cystic duct insertion - Discussed with both IR Dr. Nunn and general surgery Dr. Barrientos, it was convincing that the cholecystomy tube is functioning at this time as the gallbladder is succesfully decompressed. Unclear reason for the cholecstatic pattern LFTs elevation, no convincing evidence of overt cholangitis at this ti me. Apparently cholangiogram per IR showed mccauley contrast into the duodenum, however there does appear to be 90% stenosis located superior to the cystic duct insertion, etiology unclear but likely secondary to sludge, but there is no hepatic ductal dilatation. Case was reviewed by general surgery and gastroenterology, do not feel there is indication for any intervention at this time. - LFT downtrending, bilirubin has normalized. - Refer to general surgery as outpatient for elective cholecystectomy, this patient's main goal to achieve. # Goals of care - Based on patient's daughter's report of his prior wishes and his POLST, patient will be FULL CODEat this time. Prognosis is poor given debility , multiple comorbidities and repeated hospitalization. Palliative care consult was recommended and patient's daughter will be involved for the discussion of goals of care, meeting planned for today 02/25. # BISHOP, likely pre-renal, resolved # Hyperkalemia, likely due to hypovolemia, s/p IVF and Lokelma, resolved # Hypovolemia, resolved - Creatinine at baseline # Right wrist pain, likely due to gout, resolved # Hyperuricemia - Per family, patient had previously had similar issue with right wrist swelling and pain. IR aspirated right wrist and cell counts are not consistent with infection at this time. Uric acid crystal can be seen. The cell count is quite low thus likely we are not in an acute phase. His pain had improved. - Home allopurinol can be continued. # Anemia, chronic: no overt bleeding, will monitor. Has been on iron supplements. # Multiple sclerosis and paraplegia - continue baclofen and pain control once able to tolerate pills. # Hypertension: BP was soft so will discontinue nifedipine (it appears this medication has not beenrefilled since October). Holding lisinopril and furosemide/potassium supplements given BISHOP. Metoprolol switched to short acting. # Type 2 diabetes: last a1c 6.3%. holding metformin. Continue sliding scales. 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 He has a follow up CT angiogram ordered by outpatient oncology provider, to check for residual clot burden to assess his perioperative risk. Will not pursue this at this time as inpatient given his recent BISHOP. # CAD: continue statins. No longer on aspirin, patient anticoagulated. No chest pain at this time. EKG reassuring. # Neurogenic bladder: maintain greco catheter. # Neurogenic bowel: continue bowel regimen. DISPOSITION: It is unsafe for Mr. Ramirez to be discharged from the hospital at this time. Potentialrisks and complications include incomplete treatment of sepsis infection secondary to inappropriatewound care. NUTRITION: Non-severe (moderate) Malnutrition (02/22/25) The patient meets the ASPEN Criteria of malnutrition based on: Energy Intake: Less than 75% of estimated energy requirement for greater than or equal to 7 days Interpretation of Weight Loss: greater than 7.5% 3 months Body Fat: Normal Muscle Mass: Normal Fluid Accumulation: Absent Reduced Pasting Inspector Strength: Not applicable This is in the context of Acute Illness or Injury. Agree with Registered Dietitian's assessment and treatment plan: Interventions: Increase nutrient intake with small, frequent meals and/or snacks (Changed supplement to chocolate Premier protein for AM and PM snack.) ANTICOAGULANTS/DVT PROPHYLAXIS: AntiCoag AntiPlatelet Meds IP/OP Direct Factor Xa Inhibitors Refills Start End apixaban tablet 5 mg (Eliquis) -- 02/22/2025 -- 5 mg, oral, 2 times daily DIET: Current Diet Adult Diet Regular starting at 02/25 1236 INFUSIONS: LDA: Indwelling Urinary Catheter Double Lumen (Greco) 16 Fr. (Active) Placement Date/Time: 02/22/25 0257 Placed by: Tamika Lynn RN Hand Hygiene Performed Prior to Insertion: Yes Sterile technique followed?: Yes Replacing catheter due to failed voiding trial?: No Catheter Type (REQUIRED): Double Lumen (Greco) Add... Greco Catheter Present?: Yes, INDICATION: Chronic Indwelling. PLAN FOR REMOVAL: No plan for removal. CODE STATUS: Full Code Total time spent 60 minutes, including time spent in [id number] evaluation and coordination of care * Twyla Arita M.S., CCC-DOPE AND FABRIC WORKER - 02/25/2025 12:30 PM CDT Speech Language Pathology Dysphagia Treatment- Inpatient SUBJECTIVE Patient: Ren Ramirez Room: [address] [place] [address] Referring/Attending Provider: Nelson Chand M.D. Medical Diagnosis: Encephalopathy Metabolic [G93.41] Payor: MEDICA / Plan: MEDICA [employer] / Product Type: HMO / Reason for DOPE AND FABRIC WORKER Referral: Mentation Onset Date: 02/22/2025 Past Medical / Surgical History: Problem List[1] Medical History[2] Surgical History[3] History of Present Illness: Ren Ramirez is a 75 y.o. male who was admitted to [facility] in [place] on 02/22/2025 due to Encephalopathy Metabolic [G93.41] Active Diet Orders: Current Diet Adult Diet Regular starting at 02/25 1236 Baseline Mental Status: Alert Dysphagia: Within Normal Limits (WNL) Respiratory Status: Room air Tracheostomy: No History of Intubation: No Premorbid Nutrition Method: Oral Premorbid Liquid Diet: IDDSI Level 0 Thin Premorbid/Current Diet: IDDSI Level 7 Regular Current Nutrition Method: Oral Current Diet Liquid: IDDSI Level 2 Mildly Thick Current Diet: IDDSI Level 6 Soft & Bite-Sized Patient Positioning: Upright in bed Pain Pain Assessment Pain Assessment: FACES Pain Scale-Revised Faces Pain Scale: 0 General Arousal/Alertness: Appropriate responses to stimuli Behavior: Alert, Cooperative OBJECTIVE Oral / Motor Dentition: Adequate Consistencies Assessed: Level 0 Thin Presentation: Cup, Straw Oral: Within Functional Limits (WFL) Pharyngeal: Within Functional Limits (WFL) Level 7 Regular Oral: Within Functional Limits (WFL) Pharyngeal: Within Functional Limits (WFL) Patient was seated upright in bed at a 90 degree angle. Patient was given therapeutic trials of trials of thin liquids via cup and straw drinks and cuco cracker. Oral Stage: Anticipation was appropriate. Labial seal adequate w/ no anterior spillage observed. Manipulation and anterior-posterior bolus propulsion appeared adequate. Timeliness of bolus transit was adequate. Mastication was functional. No significant oral residue remained after the swallows. Pharyngeal Stage: No clinical signs or symptoms of aspiration with any given consistency. Laryngealelevation was present upon palpation. RISK OF ASPIRATION: low Recommend diet of regular textures, thin liquids. Will continue to follow to ensure tolerance of recommended diet. PLAN DOPE [employer] FABRIC WORKER Ongoing Services: Ongoing formal Speech Pathology services Frequency of Treatment: DYS 0-7 L. Check Tom. Duration of Treatment: Until goals are met or patient is discharged DOPE AND FABRIC WORKER - Next Inpatient Appointment: 02/26/25 Rehab Potential: Good Re-evaluate: As clinically indicated Diet Recommendations - Solids: IDDSI Level 7 Regular Diet Recommendations - Liquids: IDDSI Level 0 Thin Please refer to OT and/or PT notes for potential additions to discharge recommendations. EDUCATION: Educated patient and caregivers regarding impressions, recommendations, and speech therapy plan of care. GOALS Dysphagia Toe Trimmer Goal Dysphagia Toe Trimmer Goal: Patient will tolerate a soft and bite size diet with mildly thick liquidswithout signs and symptoms of aspiration to maintain optimal nutrition with the least restrictive diet. Dysphagia Jail Goal Progress Toward Goal: Goal met: complete goal Time Spent with Patient 10 Minutes Electronically signed by: Twyla Arita M.S., [facility]-DOPE AND FABRIC WORKER 02/25/25 1:34 PM CDT [1] Patient Active Problem List Diagnosis Hypertension Essential Primary Multiple Sclerosis (HCC) Hypokalemia Neuromuscular Dysfunction Of Bladder Unspecified Neurogenic Bowel Hypoalbuminemia Atherosclerotic Heart Disease Of [place] Coronary Artery Without Angina Pectoris Paraparesis Spastic (HCC) Abdominal Pain Hematemesis Hematochezia Nausea COVID-19 Infection Apnea Sleep Obstructive Lymphedema Weakness General Body Mass Index 33.0 To 33.9 Adult Acute Cystitis With Hematuria Fracture Femoral Condyle Closed Initial Right (HCC) Fracture Hip Closed Initial Right (HCC) Osteoporosis Hip With Pathological Fracture Initial Right ([facility]) Open Reduction Internal Fixation Hip Status Post Paraplegia (HCC) Embolus Pulmonary (HCC) Acute Embolism And Thrombosis Of Other Specified Deep Vein Of Lower Extremity Bilateral (HCC) Body Mass Index 34.0 To 34.9 Adult Encephalopathy Metabolic Pressure Injury (Ulcer) Of Sacral Region Stage 4 ([facility]) [2] Past Medical History: Diagnosis Date Apnea Sleep Obstructive Arthritis Rheumatoid (HCC) Coronary Artery Disease (Unspecified) Glaucoma Heart Failure NOS Hyperlipidemia Hypertension NOS Multiple Sclerosis (HCC) Non-ST Elevation Myocardial Infarction (HCC) 05/26/2018 Open Reduction Internal Fixation Hip Status Post 12/22/2022 Other Specified Health Status 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) 03/24/2017 Sleep Apnea [3] Past Surgical History: Procedure Laterality Date APPLICATION [...] Wound-wound vac placement Notes: possible vac placement * Anabella Parmar - 02/25/2025 11:10 AM CDT SUBJECTIVE Patient is a 75 y.o. male who was admitted to [facility] 02/22/2025 due to Encephalopathy Metabolic [G93.41]. Social work was consulted to assist with discharge planning. A psychosocial assessment was completed on 08/09/2024 by DEANGELO Damon. OBJECTIVE Patient Active Problem List Diagnosis Code Hypertension Essential Primary I10 Multiple Sclerosis (HCC) G35 Hypokalemia E87.6 Neuromuscular Dysfunction Of Bladder Unspecified N31.9 Neurogenic Bowel K59.2 Hypoalbuminemia E88.09 Atherosclerotic Heart Disease Of [place] Coronary Artery Without Angina Pectoris I25.10 Paraparesis Spastic ([facility]) G82.20 Abdominal Pain R10.9 Hematemesis K92.0 Hematochezia K92.1 Nausea R11.0 COVID-19 Infection U07.1 Apnea Sleep Obstructive G47.33 Lymphedema I89.0 Weakness General R53.1 Body Mass Index 33.0 To 33.9 Adult Z68.33 Acute Cystitis With Hematuria N30.01 Fracture Femoral Condyle Closed Initial Right ([facility]) S72.411A Fracture Hip Closed Initial Right ([facility]) S72.001A Osteoporosis Hip With Pathological Fracture Initial Right ([facility]) M80.051A Open Reduction Internal Fixation Hip Status Post Z97.8 Paraplegia ([facility]) G82.20 Embolus Pulmonary ([facility]) I26.99 Acute Embolism And Thrombosis Of Other Specified Deep Vein Of Lower Extremity Bilateral ([facility]) I82.493 Body Mass Index 34.0 To 34.9 Adult Z68.34 Encephalopathy Metabolic G93.41 Pressure Injury (Ulcer) Of Sacral Region Stage 4 ([facility]) L89.154 ASSESSMENT / PLAN ASSESSMENT Patient not formally assessed. Coordination of care only. INTERVENTION Patient had been seen by Dr. Chand prior to bedside team rounds. Patient is not medically ready for discharge and will be seen by palliative medicine. Group Leader requested IV antibiotic and saline flushes be placed by Infectious Disease and explained facility would need 24 hours to obtain IV antibiotic. Group Leader send wound vac information to facility and requested whether facility would be able to accommodate. PLAN Social work will arrange a wheelchair transport when patient is medically ready for discharge. Anabella Parmar 02/25/25 * Nelson Chand M.D. - 02/25/2025 10:58 AM CDT Images from the original note were not included. Internal Medicine Progress Note Date of Admission: 02/22/2025 LOS: 3 days Primary Care Physician: Jeff Reyes M.D. SUBJECTIVE REASON FOR ADMISSION: Encephalopathy Metabolic Ren Ramirez is a 75 y.o. gentleman with complex comorbidities including multiple sclerosis, paraplegia with chronic decubitus ulcer complicated by chronic ischial osteomyelitis, history of DVT and PE on Eliquis, diabetes mellitus type 2, hypertension, coronary artery disease, cholecystitisstatus post percutaneous cholecystostomy tube placement last exchanged 02/04/2025, neurogenic bladder and bowel. Patient presented from SN[facility] to [facility] Emergency Department 02/21 due to altered mental status, generalized pain with moaning, slurring his speech and eventually was briefly aphasic. Because of the aphasia, EMS activated pre-hospital stroke evaluation however it was reported that they were not convinced this was a stroke. On arrival to ED, were not able to detect any other focal deficits and patient was able to verbalize but unable to engage in meaningful conversation. He was found to be in BISHOP and also imaging studies at [facility] showed: CT head Impression: No acute hemorrhage or large terriotry infarct. CT CAP Impression: 1. Improvement in minimal right lower lobe ground-glass and nodularity compared to a chest CT on 02/05/2025, likely aspiration. 2. Decompressed gallbladder with a cholecystostomy in place. Persistent indeterminate thickening and stranding of the gallbladder likely reflect chronic cholecystitis. 3. Indeterminate urinary bladder wall thickening with a Greco catheter in place. Recommend correlation with urinalysis. 4. Redemonstrated large soft tissue defect along the left ischial tuberosity with evidence of chronic osteomyelitis. Smaller soft tissue defect along the left posterior iliac bone with unchanged subtle sclerosis. No drainable fluid collection. The patient was eventually transferred to [facility] for further care, as it was suspected that the encephalopathy was secondary to underlying infection, however the source was not clear. Patient was started on broad spectrum antibiotics including Meropenem. Interval Updates Today the patient is more with it and oriented to person and place. Answers questions appropriately, no obvious report of hallucination or delirium. Denied having any abdominal pain at this time. Intake/Output Summary (Last 24 hours) at 02/25/2025 1059 Last data filed at 02/25/2025 0819 Gross per 24 hour Intake 400 ml Output 910 ml Net -510 ml OBJECTIVE VITAL SIGNS BP (!) 118/96 (BP Location: Right arm;Upper, Patient Position: Semi-recumbent) Pulse 71 Temp (!) 35.8 ??C (Temporal) Resp 16 Ht 182.9 cm Wt 99.7 kg SpO2 92% BMI 29.80 kg/m?? PHYSICAL EXAMINATION General: Alert and Orientated to self and place. HEENT: Normocephalic, atraumatic. No scleral icterus. Cardiovascular: Normal rate, regular rhythm. Lungs: Clear to Auscultation Abdomen: Soft, nontender, nondistended. Extremities: No bilateral lower extremity edema. B/l UE range of motion preserved. Patient is paraplegic. Intake/Output Summary (Last 24 hours) at 02/25/2025 1059 Last data filed at 02/25/2025 0819 Gross per 24 hour Intake 400 ml Output 910 ml Net -510 ml DIAGNOSTICS Results from last 7 days Lab Units 08/05/25 0759 02/24/25 0544 02/22/25 0428 WBC x10(9)/L 7.0 6.8 9.2 HEMOGLOBIN g/dL 9.1* 9.2* 10.1* HEMATOCRIT % 29.8* 30.2* 32.0* PLATELETS AUTO x10(9)/L 201 222 231 Results from last 7 days Lab Units 02/25/25 0759 02/24/25 0544 02/23/25 0617 SODIUM P mmol/L 144 143 141 CHLORIDE P mmol/L 111* 109* 109* BUN P mg/dL 17 25* 36* CREATININE mg/dL 0.88 1.02 1.37* CALCIUM P mg/dL 9.5 9.5 9.1 Results from last 7 days Lab Units 02/25/25 0759 02/24/25 0544 02/23/25 0617 02/22/25 1513 02/22/25 0428 02/22/25 0428 ALBUMIN P g/dL 2.9* 2.8* 2.6* 2.8* -- 3.0* AST P U/L 53* 112* 163* 214* -- 292* ALT P U/L 90* 131* 150* 184* -- 195* ALK PHOS P U/L 705* 749* 796* 995* -- 1008* BILIRUBIN DIRECT P mg/dL 0.3 0.5* 1.0* 1.7* < > -- BILIRUBIN TOTAL P mg/dL 0.4 0.7 1.3* 2.2* -- 1.5* < > = values in this interval not displayed. Micro: Results for orders placed or performed during the hospital encounter of 02/22/25 (from the past 2 weeks) Bacterial Culture, Aerobic + Susceptibility, Urine Specimen: Urine, Indwelling Catheter Specimen Source Site: Urine Result Value Urine Culture No growth after 1 day of incubation. SARS CoV-2, Influenza A/B, RSV, PCR Symptomatic Specimen: Nasopharynx; Swab Result Value Influenza A, PCR Undetected Influenza B, PCR Undetected Respiratory Syncytial Virus, PCR Undetected [id number], PCR Undetected Specimen Source Swab, Nasopharynx Gram Stain Specimen: Synovial Fluid, Right Wrist Specimen Source Site: Fluid Result Value Gram Stain No organisms seen. White blood cells present. Stain performed on concentrated cytospin preparation. Radiology: Reviewed pertinent radiology reports. Last 2 days: IR Percutaneous Cholecystostomy Tube Check Result Date: 02/22/2025 Impression: 1. Patent cholecystostomy tube. 2. Intermittent cystic duct obstruction; cystic duct isopen on today's exam. 3. Common bile duct sludge without causing hepatic ductal dilatation. RAD US Joint Aspiration and or Injection Right Result Date: 02/22/2025 Impression: 1. US-guided right wrist joint aspiration. DX Wrist Right 3+ Views Result Date: 02/22/2025 Impression: Spotty demineralization. No apparent fractures. Slight ulna minus variance. Chondrocalcinosis although to a much lesser degree than in 2017. DX Knee Right 4+ Views Result Date: 02/22/2025 Impression: Demineralization. No acute fracture. Moderate tricompartmental arthritis. Tiny joint effusion. Chondrocalcinosis. Small suprapatellar spur. MEDICATIONS: Scheduled Meds: allopurinoL, 100 mg, oral, Daily apixaban, 5 mg, oral, BID atorvastatin, 80 mg, oral, Daily at bedtime bacitracin, 1 Application, topical, BID baclofen, 10 mg, oral, BID diclofenac sodium, 2 g, topical, 4x Daily ertapenem, 1 g, intravenous, Daily ferrous sulfate, 65 mg of iron, oral, Daily with morning meal insulin aspart, 0-7 Units, subcutaneous, TID latanoprost, 1 drop, both eyes, Daily loratadine, 10 mg, oral, Daily at bedtime melatonin, 4.5 mg, oral, Daily at bedtime metoprolol tartrate, 50 mg, oral, BID pantoprazole, 40 mg, oral, BID before morning and evening meals sennosides, 8.6 mg, oral, BID sodium chloride, 3 mL, intravenous, Q24H BERONICA Continuous Infusions: PRN Meds: acetaminophen D5W fentaNYL (PF) NaCl 0.9% NaCl 0.9% ondansetron oxyCODONE polyethylene glycol sennosides-docusate sodium sodium chloride sodium chloride ASSESSMENT / PLAN # Metabolic encephalopathy # Sepsis, gram negative bacillus blood stream of uncertain source - Blood cultures came back positive for gram negative aden in aerobic bottle 1 out of 2 sets from [place]. We are still awaiting speciation ([facility]: [phone]). Other contributing factor for the encephalopathy including dehydration and BISHOP. - His mental status is slowly improving yet not back to baseline. No longer having any slurred speech, but is delirious. - Repeat blood culture obtained in our hospital have all been negative so far. - Appreciate infectious disease recommendations, recommended Ertapenem 1 g IV Q 24 last day of therapy March 01. This can be arranged at [facility]TC if patient ready for discharge prior to end of treatment. # Concern Dysphagia - Initially [employer] WORKER recommended SB6 and mildly thick liquid. This has improved and currently on regularthin. 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 Evaluated by general surgery and do not feel there is evidence of acute infection orneed for debridement. CT was reassuring, ruled out deep fluid collection. There is plan to follow with plastic surgery as outpatient however patient had been repeatedly admitted to the hospital for other reasons . - Wound care team following. # Chronic cholecystitis s/p cholecystostomy tube # Elevated liver enzymes, with cholestatic pattern, with concern for CBD stenosis superior to the cystic duct insertion - Discussed with both IR Dr. Nunn and general surgery Dr. Barrientos, it was convincing that the cholecystomy tube is functioning at this time as the gallbladder is succesfully decompressed. Unclear reason for the cholecstatic pattern LFTs elevation, no convincing evidence of overt cholangitis at this ti me. Apparently cholangiogram per IR showed mccauley contrast into the duodenum, however there does appear to be 90% stenosis located superior to the cystic duct insertion, etiology unclear but likely secondary to sludge, but there is no hepatic ductal dilatation. Case was reviewed by general surgery and gastroenterology, do not feel there is indication for any intervention at this time. - LFT downtrending, bilirubin has normalized. - Refer to general surgery as outpatient for elective cholecystectomy, this patient's main goal to achieve. # Goals of care - Based on patient's daughter's report of his prior wishes and his POLST, patient will be FULL CODEat this time. Prognosis is poor given debility , multiple comorbidities and repeated hospitalization. Palliative care consult was recommended and patient's daughter will be involved for the discussion of goals of care, meeting planned for today 02/25. # BISHOP, likely pre-renal, resolved # Hyperkalemia, likely due to hypovolemia, s/p IVF and Lokelma, resolved # Hypovolemia, resolved - Received 2L in outside ED and maintenance fluid since. Okay to discontinue IVF and oral intake improving. Renal function improving Cr down from peak of 2.7. Continue to monitor. # Right wrist pain, likely due to gout, resolved # Hyperuricemia - Per family, patient had previously had similar issue with right wrist swelling and pain. IR aspirated right wrist and cell counts are not consistent with infection at this time. Uric acid crystal can be seen. The cell count is quite low thus likely we are not in an acute phase. His pain had improved. - Home allopurinol can be continued. # Anemia, chronic: no overt bleeding, will monitor. Has been on iron supplements. # Multiple sclerosis and paraplegia - continue baclofen and pain control once able to tolerate pills. # Hypertension: BP was soft so will discontinue nifedipine (it appears this medication has not beenrefilled since October). Holding lisinopril and furosemide/potassium supplements given BISHOP. Metoprolol switched to short acting. # Type 2 diabetes: last a1c 6.3%. holding metformin. Continue sliding scales. 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 He has a follow up CT angiogram ordered by outpatient oncology provider, to check for residual clot burden to assess his perioperative risk. Will not pursue this at this time as inpatient given his recent BISHOP. # CAD: continue statins. No longer on aspirin, patient anticoagulated. No chest pain at this time. EKG reassuring. # Neurogenic bladder: maintain greco catheter. # Neurogenic bowel: continue bowel regimen. DISPOSITION: It is unsafe for Mr. Ramirez to be discharged from the hospital at this time. Potentialrisks and complications include incomplete treatment of sepsis infection secondary to inappropriatewound care. NUTRITION: Non-severe (moderate) Malnutrition (02/22/25) The patient meets the ASPEN Criteria of malnutrition based on: Energy Intake: Less than 75% of estimated energy requirement for greater than or equal to 7 days Interpretation of Weight Loss: greater than 7.5% 3 months Body Fat: Normal Muscle Mass: Normal Fluid Accumulation: Absent Reduced Pasting Inspector Strength: Not applicable This is in the context of Acute Illness or Injury. Agree with Registered Dietitian's assessment and treatment plan: Interventions: Increase nutrient intake with small, frequent meals and/or snacks (Changed supplement to chocolate Premier protein for AM and PM snack.) ANTICOAGULANTS/DVT PROPHYLAXIS: AntiCoag AntiPlatelet Meds IP/OP Direct Factor Xa Inhibitors Refills Start End apixaban tablet 5 mg (Eliquis) -- 02/22/2025 -- 5 mg, oral, 2 times daily DIET: Current Diet Adult Diet Dysphagia; Mildly Thick (MT2); Soft and Bite-Sized (SB6) starting at 02/23 1009 INFUSIONS: LDA: Indwelling Urinary Catheter Double Lumen (Greco) 16 Fr. (Active) Placement Date/Time: 02/22/25256 Placed by: Tamika Lynn RN Hand Hygiene Performed Prior to Insertion: Yes Sterile technique followed?: Yes Replacing catheter due to failed voiding trial?: No Catheter Type (REQUIRED): Double Lumen (Greco) Add... Greco Catheter Present?: Yes, INDICATION: Chronic Indwelling. PLAN FOR REMOVAL: No plan for removal. CODE STATUS: Full Code Total time spent 40 minutes, including time spent in [id number] evaluation and coordination of care Nelson Chand M.D. [facility] Internal Medicine [facility] * Candelario Castillo Pharm.D., R.Ph. - 02/25/2025 7:38 AM CDT Pharmacist Progress Note Reason for admission: metabolic encephalopathy, sepsis. PMH: Decubitus ulcer w/chronic ischial osteomyelitis, chronic cholecystitis, chronic anemia, HTN, DM2, history of DVT/PE (July 2024) OBJECTIVE Home medications: Held: acetic acid, clotrimazole, calcium, vitamin D, Flonase, lisinopril, metformin, potassium. Changed: Loratadine formulary sub for cetirizine. Metoprolol dose changed. Stop nifedipine. Patient own medications: n/a Prophylaxis: VTE: Eliquis 5 mg twice daily; SUP: Protonix 40 mg by mouth twice daily. ASSESSMENT / PLAN Sepsis/Metabolic Encephalopathy Blood culture from outside facility show gram positive aden in 1 of 2 bottles. ID consulted. Plan for ertapenem 1 g IV daily through 03/01/25. HTN Lisinopril on hold and nifedipine discontinued due to low blood pressures. Metoprolol changed from succinate 100 mg daily to tartrate 50 mg twice daily. DM2 Metformin on hold. Novolog mild correction SSI with meals. Blood glucose well controlled. History of PE/DVT Continues on Eliquis 5 mg twice daily. Changes to medications anticipated at discharge: Change metoprolol dose. Stop nifedipine. Candelario Castillo, Pharm.D., R.Ph. * Zelda Huff RDN, LD - 02/24/2025 2:47 PM CDT Clinical Note Types: Reassessment NUTRITION ASSESSMENT Percentage of Meals Eaten for the past 72 hrs: Percent Meals Eaten (%) 02/23/25 1835 100 02/23/25 1145 50 Patient was able to advance to SB6 and MT2 diet. He reports he does not like the food on the dysphagia diet but is attempting to eat as much as he can. He does state that he usually drinks Premier Protein at home and does enjoy it. Would like to have sent 1-2 times/day. Non-severe (moderate) Malnutrition (02/22/25) The patient does meet the ASPEN Criteria of malnutrition based on: Energy Intake: Less than 75% of estimated energy requirement for greater than or equal to 7 days Interpretation of Weight Loss: greater than 7.5% 3 months Body Fat: Normal Muscle Mass: Normal Fluid Accumulation: Absent Reduced Pasting Inspector Strength: Not applicable This is in the context of Acute Illness or Injury. PERTINENT LABS: Last 3 results Lab Units 02/24/25 0544 02/23/25 0617 02/22/25 1513 SODIUM P mmol/L 143 141 137 POTASSIUM P mmol/L 4.1 4.5 5.3* CHLORIDE P mmol/L 109* 109* 105 BUN P mg/dL 25* 36* 45* CREATININE mg/dL 1.02 1.37* 1.86* CALCIUM P mg/dL 9.5 9.1 9.5 Lab Results Component Value Date GLUCOSEPOC 137 02/24/2025 GLUCOSEPOC 132 02/23/2025 GLUCOSEPOC 92 02/23/2025 ANTHROPOMETRICS Height: 182.9 cm Admission Weight: 107 kg Weight: 95.4 kg BMI (Calculated): 28.5 kg/m?? Dietary Orders (From admission, onward) Start Ordered 02/24/25 1446 Oral supplement -Supplement; Premier Protein (chocolate); 1 each; Take at: Morning snack, Afternoon snack (Oral Nutrition Supplement) Until discontinued Question Answer Comment Type: Supplement Supplement: Premier Protein (chocolate) Size: 1 each Take at: Morning snack Take at: Afternoon snack 02/24/25 1445 02/23/25 1009 Adult Diet Dysphagia; Mildly Thick (MT2); Soft and Bite-Sized (SB6) (Adult Diet) Dieteffective now Question Answer Comment Diet texture: Dysphagia Drink/Liquid Consistency: Mildly Thick (MT2) Food Consistency: Soft and Bite-Sized (SB6) 02/23/25 1008 NUTRITION DIAGNOSIS: Malnutrition (undernutrition) related to acute illness (osteomyelitis), taste changes as evidenced by 9% loss in 5 months and <75% of estimated energy intake x 1wk (ongoing for 2wks) NUTRITION PLAN AND INTERVENTIONS: Interventions: Increase nutrient intake with small, frequent meals and/or snacks (Changed supplement to chocolate Premier protein for AM and PM snack.) MONITORING AND EVALUATION: Nutrition Monitoring/Evaluation Monitoring: Meals/Supplement Intake, Wound Healing, Nausea/Vomiting/Diarrhea * Twyla Arita M.S., [facility]-[employer] WORKER - 02/24/2025 11:32 AM CDT 02/24/25 1132 Reason Therapy Missed Reason Therapy Missed No visit this date Per RN, patient tolerating diet of mildly thick liquids and soft & bite-sized textures without current concerns. Recommend completion of FEES or video swallow if clinical presentation is unchanged w/ return to baseline mentation. Per RN, patient mentation is not yet at baseline. Will hold further eval and continue to follow. * Bernadette Parmarin R - 02/24/2025 11:19 AM CDT SUBJECTIVE Patient is a 75 y.o. male who was admitted to [facility] 02/22/2025 due to Encephalopathy Metabolic [G93.41]. Social work was consulted to assist with discharge planning. A psychosocial assessment was completed on 08/09/[address] [facility] [place]. OBJECTIVE Patient Active Problem List Diagnosis Code Hypertension Essential Primary I10 Multiple Sclerosis (HCC) G35 Hypokalemia E87.6 Neuromuscular Dysfunction Of Bladder Unspecified N31.9 Neurogenic Bowel K59.2 Hypoalbuminemia E88.09 Atherosclerotic Heart Disease Of [place] Coronary Artery Without Angina Pectoris I25.10 Paraparesis Spastic ([facility]) G82.20 Abdominal Pain R10.9 Hematemesis K92.0 Hematochezia K92.1 Nausea R11.0 COVID-19 Infection U07.1 Apnea Sleep Obstructive G47.33 Lymphedema I89.0 Weakness General R53.1 Body Mass Index 33.0 To 33.9 Adult Z68.33 Acute Cystitis With Hematuria N30.01 Fracture Femoral Condyle Closed Initial Right ([facility]) S72.411A Fracture Hip Closed Initial Right ([facility]) S72.001A Osteoporosis Hip With Pathological Fracture Initial Right ([facility]) M80.051A Open Reduction Internal Fixation Hip Status Post Z97.8 Paraplegia ([facility]) G82.20 Embolus Pulmonary ([facility]) I26.99 Acute Embolism And Thrombosis Of Other Specified Deep Vein Of Lower Extremity Bilateral ([facility]) I82.493 Body Mass Index 34.0 To 34.9 Adult Z68.34 Encephalopathy Metabolic G93.41 ASSESSMENT / PLAN ASSESSMENT Patient not formally assessed. Coordination of care only. INTERVENTION Patient had been seen by Dr. Chand prior to bedside team rounds. Patient is not medically ready for discharge and will be seen by palliative medicine. Group Leader spoke with Riley pediatric social worker at [facility] ([phone]), who confirmed baseline information remains at the same from 07/2024 assessment (requires lift device, dependent in dressing, housekeeping, meal prep, shopping, independent with feeding and grooming, and needs assistance with bathing and toileting). Group Leader asked if facility would be able to accommodate IV antibiotic,Ertapenem, 1g Q 24. Riley stated that the facility can accommodate the IV antibiotic but will needsorders 24 hours prior for pharmacy to provide antibiotic to facility. Group Leader requested. Dr. Field with Infectious Disease place order for antibiotic along with salineflushes. PLAN Social work will arrange a wheelchair transport when patient is medically ready for discharge. Anabella Parmar 02/24/25 * Iris Henry - 02/24/2025 9:51 AM CDT Images from the original note were not included. Admission Medication History Note Adherence issues: No concerns Medication list source: Outside facility MAR Medication related information: Completed medication reconciliation with MAR provided by [facility]. Per MAR shows no tylenol listed however, there is consistent fill history. Per MAR shows immediate release metformin 500 mg however, there is consistent fill history for the ER. MAR does not show aspirin listed last filled on 12/06. NIFEdipine not shown in MAR last filled on 12/06. Prior to Admission Medications Med List Status: Pharmacy Complete Set By: Iris Henry at 02/24/2025 9:51 AM Taking? Last Dose Informant Start Date End Date LT acetaminophen (TylenoL) 500 mg tablet -- -- 08/16/24 -- Take 2 tablets (1,000 mg total) by mouth 3 (three) times a day. acetic acid 0.25 % irrigation (sterile) -- -- -- -- Apply to buttocks wounds topically as needed for wound care allopurinoL (Zyloprim) 100 mg tablet 02/19/2025 at Morning -- -- -- Take 100 mg by mouth daily. AntifungaL, clotrimazole, 1 % cream 02/21/2025 at Morning -- 05/14/24 -- Apply 1 Application topically 2 (two) times a day. apixaban (Eliquis) 5 mg tablet 02/21/2025 at Morning -- 12/17/24 -- Take 5 mg by mouth 2 (two) times a day. aspirin [address] tablet -- -- 11/13/22 -- Take 1 tablet (81 mg total) by mouth daily. atorvastatin (Lipitor) 80 mg tablet 02/18/2025 at Bedtime -- 11/08/24 -- Take 1 tablet (80 mg total) by mouth at bedtime. bacitracin 500 unit/gram ointment 02/21/2025 at Morning -- 08/10/23 -- Apply 1 Application topically 2 (two) times a day. baclofen (LIORESAL) 10 mg tablet 02/20/2025 at Evening -- 12/08/22 02/24/25 Take 1 tablet (10 mg total) by mouth 2 (two) times a day. BD PosiFlush Normal Saline 0.9 injection 02/21/2025 at Morning -- 01/13/25 -- Use 10 mL via irrigation every day calcium carbonate (TUMS) 500 mg (200 mg calcium) chewable tablet 02/15/2025 at Evening -- 12/22/22 -- Chew 2 tablets (400 mg of calcium total) 2 (two) times a day. carbamide peroxide (Debrox) 6.5 % otic solution Past Month -- -- -- Administer 5 drops into each ear as needed. cetirizine (ZyrTEC) 10 mg tablet 02/20/2025 at 8:00 PM -- -- -- Take 10 mg by mouth at bedtime. cholecalciferol 25 mcg (1,000 unit) tablet 02/19/2025 at Morning -- 08/16/24 -- Take 1 tablet (25 mcg total) by mouth daily. diclofenac sodium (Voltaren) 1 % gel -- -- 08/16/24 -- Apply 2 g topically 2 (two) times a day as needed (pain). ferrous sulfate tablet 02/19/2025 at Morning -- -- -- Take 325 mg by mouth every other day. fluticasone propionate (Flonase) 50 mcg/actuation nasal spray -- -- 02/18/25 -- Administer 1 spray into each nostril 2 (two) times a day. furosemide (LASIX) 20 mg tablet Not Taking -- 01/26/23 -- Take 1 tablet (20 mg total) by mouth daily. Patient not taking: Reported on 02/24/2025 furosemide (Lasix) 40 mg tablet 02/20/2025 at Noon -- -- -- Take 40 mg by mouth every morning. latanoprost (XALATAN) 0.005 % ophthalmic solution 02/20/2025 at Bedtime Self 09/19/22 -- Administer 1 drop into both eyes daily. lisinopriL (PRINIVIL,ZESTRIL) 40 mg tablet 02/21/2025 at Morning -- 12/08/22 -- Take 1 tablet (40 mg total) by mouth daily. melatonin 5 mg tablet Not Taking -- 02/09/24 -- Take 1 tablet (5 mg total) by mouth at bedtime as needed (for sleep). Patient not taking: Reported on 02/24/2025 metFORMIN XR (Glucophage-XR) 500 mg 24 hr tablet 02/13/2025 at Evening -- -- -- Take 1,000 mg by mouth daily with evening meal. metoprolol succinate (TOPROL-XL) 100 mg 24 hr tablet 02/19/2025 at Morning -- 11/13/22 -- Take 1 tablet (100 mg total) by mouth daily. Do not crush or chew. NIFEdipine XL (PROCARDIA XL) 90 mg 24 hr tablet () -- -- 12/09/22 11/05/24 Take 1 tablet (90 mg total) by mouth daily. nitroglycerin (Nitrostat) 0.4 mg SL tablet -- -- 02/05/25 -- Place 0.4 mg under the tongue every 5 (five) minutes as needed for chest pain. ondansetron (ZOFRAN) 4 mg tablet 02/21/2025 at Morning -- 06/23/23 -- Take 4 mg by mouth every 6 (six) hours as needed for nausea or vomiting. oxyCODONE (Roxicodone) 5 mg immediate release tablet 02/21/2025 at Morning -- 08/29/24 -- Take 5 mg by mouth every 6 (six) hours as needed for severe pain or score 7-10 of 10. pantoprazole (PROTONIX) 40 mg EC tablet 02/20/2025 at Evening -- 11/13/22 -- Take 1 tablet (40 mg total) by mouth 2 (two) times a day before breakfast and dinner. polyethylene glycol (MIRALAX) 17 gram powder packet 02/13/2025 at 11:00 AM -- 01/25/23 -- Take 1 packet (17 g total) by mouth daily as needed for constipation. Dissolve each 17 g dose in 240 mLs (8 ounces) of beverage. potassium chloride 10 mEq ER capsule -- -- 08/16/24 -- Take 1 capsule (10 mEq total) by mouth 2 (two) times a day with meals. saliva substitution (Biotene Dry Mouth Oral Rinse) mouthwash -- -- -- -- Apply 1 Application to the mouth or throat as needed (dry mouth). senna 8.6 mg tablet 02/11/2025 at Morning -- 08/23/24 -- Take 17.2 mg by mouth every morning. sennosides-docusate sodium (SENOKOT-S) 8.6-50 mg per tablet 02/11/2025 at Morning Self 07/04/18 -- Take 1 tablet by mouth 2 (two) times a day as needed for constipation. Cosigned by Kaushik Trujillo, Pharm.D., R.Ph. at 03/03/2025 8:30 AM CDT * Nelson Chand M.D. - 02/24/2025 8:37 AM CDT Images from the original note were not included. Internal Medicine Progress Note Date of Admission: 02/22/2025 LOS: 2 days Primary Care Physician: Jeff Reyes M.D. SUBJECTIVE REASON FOR ADMISSION: Encephalopathy Metabolic Ren Ramirez is a 75 y.o. gentleman with complex comorbidities including multiple sclerosis, paraplegia with chronic decubitus ulcer complicated by chronic ischial osteomyelitis, history of DVT and PE on Eliquis, diabetes mellitus type 2, hypertension, coronary artery disease, cholecystitisstatus post percutaneous cholecystostomy tube placement last exchanged 02/04/2025, neurogenic bladder and bowel. Patient presented from [facility] to [facility] Emergency Department 02/21 due to altered mental status, generalized pain with moaning, slurring his speech and eventually was briefly aphasic. Because of the aphasia, EMS activated pre-hospital stroke evaluation however it was reported that they were not convinced this was a stroke. On arrival to ED, were not able to detect any other focal deficits and patient was able to verbalize but unable to engage in meaningful conversation. He was found to be in BISHOP and also imaging studies at [place] showed: CT head Impression: No acute hemorrhage or large terriotry infarct. CT CAP Impression: 1. Improvement in minimal right lower lobe ground-glass and nodularity compared to a chest CT on 02/05/2025, likely aspiration. 2. Decompressed gallbladder with a cholecystostomy in place. Persistent indeterminate thickening and stranding of the gallbladder likely reflect chronic cholecystitis. 3. Indeterminate urinary bladder wall thickening with a Greco catheter in place. Recommend correlation with urinalysis. 4. Redemonstrated large soft tissue defect along the left ischial tuberosity with evidence of chronic osteomyelitis. Smaller soft tissue defect along the left posterior iliac bone with unchanged subtle sclerosis. No drainable fluid collection. The patient was eventually transferred to [facility] for further care, as it was suspected that the encephalopathy was secondary to underlying infection, however the source was not clear. Patient was started on broad spectrum antibiotics including Meropenem. Interval Updates The patient is alert and oriented to person and place however does appear to have some hallucination/delirium ongoing, reported that he is seeing the room shrinking. He is tearful not sure what happened that had him ended up in the hospital. When we asked him if he has any pain, he denied. He is moving both of his upper extremities withoutissue. Intake/Output Summary (Last 24 hours) at 02/24/2025 0837 Last data filed at 02/24/2025 0524 Gross per 24 hour Intake 1084.17 ml Output 1630 ml Net -545.83 ml OBJECTIVE VITAL SIGNS BP 114/72 (BP Location: Right arm;Upper, Patient Position: Semi-recumbent) Pulse 66 Temp 36.5 ??C (Temporal) Resp 15 Ht 182.9 cm Wt 95.4 kg SpO2 96% BMI 28.52 kg/m?? PHYSICAL EXAMINATION General: Alert and Orientated to self and place. HEENT: Normocephalic, atraumatic. No scleral icterus. Cardiovascular: Normal rate, regular rhythm. Lungs: Clear to Auscultation Abdomen: Soft, nontender, nondistended. Extremities: No bilateral lower extremity edema. B/l UE range of motion preserved. Patient is paraplegic. Intake/Output Summary (Last 24 hours) at 02/24/2025 0837 Last data filed at 02/24/2025 0524 Gross per 24 hour Intake 1084.17 ml Output 1630 ml Net -545.83 ml DIAGNOSTICS Results from last 7 days Lab Units 02/24/25 0544 02/22/25 0428 02/18/25 0715 WBC x10(9)/L 6.8 9.2 -- EXT WBC thou/cu mm -- -- 11.7* EXT HEMOGLOBIN g/dL -- -- 11.2* HEMOGLOBIN g/dL 9.2* 10.1* -- HEMATOCRIT % 30.2* 32.0* -- EXT HEMATOCRIT % -- -- 37.4 EXT PLATELETS AUTO thou/cu mm -- -- 219 PLATELETS AUTO x10(9)/L 222 231 -- Results from last 7 days Lab Units 02/24/25 0544 02/23/25 0617 02/22/25 1513 SODIUM P mmol/L 143 141 137 CHLORIDE P mmol/L 109* 109* 105 BUN P mg/dL 25* 36* 45* CREATININE mg/dL 1.02 1.37* 1.86* CALCIUM P mg/dL 9.5 9.1 9.5 Results from last 7 days Lab Units 02/24/25 0544 02/23/25 0617 02/22/25 1513 02/22/25 0428 02/22/25 0428 ALBUMIN P g/dL 2.8* 2.6* 2.8* -- 3.0* AST P U/L 112* 163* 214* -- 292* ALT P U/L 131* 150* 184* -- 195* ALK PHOS P U/L 749* 796* 995* -- 1008* BILIRUBIN DIRECT P mg/dL 0.5* 1.0* 1.7* < > -- BILIRUBIN TOTAL P mg/dL 0.7 1.3* 2.2* -- 1.5* < > = values in this interval not displayed. Micro: Results for orders placed or performed during the hospital encounter of 02/22/25 (from the past 2 weeks) Bacterial Culture, Aerobic + Susceptibility, Urine Specimen: Urine, Indwelling Catheter Specimen Source Site: Urine Result Value Urine Culture No growth after 1 day of incubation. SARS CoV-2, Influenza A/B, RSV, PCR Symptomatic Specimen: Nasopharynx; Swab Result Value Influenza A, PCR Undetected Influenza B, PCR Undetected Respiratory Syncytial Virus, PCR Undetected [id number], PCR Undetected Specimen Source Swab, Nasopharynx Gram Stain Specimen: Synovial Fluid, Right Wrist Specimen Source Site: Fluid Result Value Gram Stain No organisms seen. White blood cells present. Stain performed on concentrated cytospin preparation. Radiology: Reviewed pertinent radiology reports. Last 2 days: IR Percutaneous Cholecystostomy Tube Check Result Date: 02/22/2025 Impression: 1. Patent cholecystostomy tube. 2. Intermittent cystic duct obstruction; cystic duct isopen on today's exam. 3. Common bile duct sludge without causing hepatic ductal dilatation. RAD US Joint Aspiration and or Injection Right Result Date: 02/22/2025 Impression: 1. US-guided right wrist joint aspiration. DX Wrist Right 3+ Views Result Date: 02/22/2025 Impression: Spotty demineralization. No apparent fractures. Slight ulna minus variance. Chondrocalcinosis although to a much lesser degree than in 2017. DX Knee Right 4+ Views Result Date: 02/22/2025 Impression: Demineralization. No acute fracture. Moderate tricompartmental arthritis. Tiny joint effusion. Chondrocalcinosis. Small suprapatellar spur. MEDICATIONS: Scheduled Meds: allopurinoL, 100 mg, oral, Daily apixaban, 5 mg, oral, BID aspirin, 81 mg, oral, Daily atorvastatin, 80 mg, oral, Daily at bedtime bacitracin, 1 Application, topical, BID baclofen, 10 mg, oral, BID diclofenac sodium, 2 g, topical, 4x Daily ferrous sulfate, 65 mg of iron, oral, Daily with morning meal insulin aspart, 0-7 Units, subcutaneous, TID latanoprost, 1 drop, both eyes, Daily loratadine, 10 mg, oral, Daily at bedtime meropenem, 500 mg, intravenous, Q8H BERONICA metoprolol tartrate, 50 mg, oral, BID [Held by provider] NIFEdipine XL, 60 mg, oral, Daily pantoprazole, 40 mg, oral, BID before morning and evening meals sennosides, 8.6 mg, oral, BID sodium chloride, 3 mL, intravenous, Q24H BERONICA Continuous Infusions: Lactated Ringer's, 50 mL/hr, Last Rate: 50 mL/hr (02/24/25 0200) PRN Meds: acetaminophen D5W fentaNYL (PF) melatonin NaCl 0.9% NaCl 0.9% ondansetron oxyCODONE polyethylene glycol sennosides-docusate sodium sodium chloride sodium chloride ASSESSMENT / PLAN # Metabolic encephalopathy # Sepsis, gram negative bacillus blood stream of uncertain source - Blood cultures came back positive for gram negative aden in aerobic bottle 1 out of 2 sets from [place]. We are still awaiting speciation ([facility]: [id number]). Other contributing factor for the encephalopathy including dehydration and BISHOP. - His mental status is slowly improving yet not back to baseline. No longer having any slurred speech, but is delirious. - Continue meropenem for now. Follow urine cultures, blood cultures. Will need to receive more information from [place]. # Dysphagia - [employer] recommended SB6 and mildly thick liquid. 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 Evaluated by general surgery and do not feel there is evidence of acute infection orneed for debridement. CT was reassuring, ruled out deep fluid collection. There is plan to follow with plastic surgery as outpatient however patient had been repeatedly admitted to the hospital for other reasons . - Wound care as per general surgery and wound care team. # Chronic cholecystitis s/p cholecystostomy tube # Elevated liver enzymes, with cholestatic pattern, with concern for CBD stenosis superior to the cystic duct insertion - Discussed with both IR Dr. Nunn and general surgery Dr. Barrientos, it was convincing that the cholecystomy tube is functioning at this time as the gallbladder is succesfully decompressed. Unclear reason for the cholecstatic pattern LFTs elevation, no convincing evidence of overt cholangitis at this ti me. Apparently cholangiogram per IR showed mccauley contrast into the duodenum, however there does appear to be 90% stenosis located superior to the cystic duct insertion, etiology unclear but likely secondary to sludge, but there is no hepatic ductal dilatation. General surgery signed off at this time. - LFT slowly trending down. Consult GI to decide whether further work up is necessary for the stenosis. - Refer to general surgery as outpatient for elective cholecystectomy. # Goals of care - Patient at this time is too confused to engage in goals of care discussion. Based on patient's daughter's report of his prior wishes and his POLST, patient will be FULL CODE at this time. Prognosisis poor given debility , multiple comorbidities and repeated hospitalization. Palliative care consult was recommended and patient's daughter will be involved for the discussion of goals of care. # BISHOP, likely pre-renal, resolved # Hyperkalemia, likely due to hypovolemia, s/p IVF and Lokelma, resolved # Hypovolemia, resolved - Received 2L in outside ED and maintenance fluid since. Okay to discontinue IVF and oral intake improving. Renal function improving Cr down from peak of 2.7. Continue to monitor. # Right wrist pain, likely due to gout, resolved # Hyperuricemia - Per family, patient had previously had similar issue with right wrist swelling and pain. IR aspirated right wrist and cell counts are not consistent with infection at this time. Uric acid crystal can be seen. The cell count is quite low thus likely we are not in an acute phase. His pain had improved. - Home allopurinol can be continued. # Anemia, chronic: no overt bleeding, will monitor. Has been on iron supplements. # Multiple sclerosis and paraplegia - continue baclofen and pain control once able to tolerate pills. # Hypertension: BP was soft so will hold nifedipine (will discontinue moving forward), also holdinglisinopril and furosemide/potassium supplements given BISHOP. Metoprolol switched to short acting. # Type 2 diabetes: last a1c 6.3%. holding metformin. Continue sliding scales. 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 He has a follow up CT angiogram ordered by outpatient oncology provider, to check for residual clot burden to assess his perioperative risk. Will not pursue this at this time as inpatient given his recent BISHOP. # CAD: continue statins. No longer on aspirin, patient anticoagulated. No chest pain at this time. EKG reassuring. # Neurogenic bladder: maintain greco catheter. # Neurogenic bowel: continue bowel regimen. DISPOSITION: It is unsafe for Mr. Ramirez to be discharged from the hospital at this time. Potentialrisks and complications include incomplete treatment of sepsis infection secondary to inappropriatewound care. NUTRITION: Non-severe (moderate) Malnutrition (02/22/25) The patient meets the ASPEN Criteria of malnutrition based on: Energy Intake: Less than 75% of estimated energy requirement for greater than or equal to 7 days Interpretation of Weight Loss: greater than 7.5% 3 months Body Fat: Normal Muscle Mass: Normal Fluid Accumulation: Absent Reduced Pasting Inspector Strength: Not applicable This is in the context of Acute Illness or Injury. Agree with Registered Dietitian's assessment and treatment plan: Interventions: Other (Will monitor ability to advance diet. Recommend trial of liquacel supplementsBID given K is high. Once normalizes could switch to premier protein.) ANTICOAGULANTS/DVT PROPHYLAXIS: AntiCoag AntiPlatelet Meds IP/OP Direct Factor Xa Inhibitors Refills Start End apixaban tablet 5 mg (Eliquis) -- 02/22/2025 -- 5 mg, oral, 2 times daily DIET: Current Diet Adult Diet Dysphagia; Mildly Thick (MT2); Soft and Bite-Sized (SB6) starting at 02/23 1009 INFUSIONS: Lactated Ringer's, 50 mL/hr, Last Rate: 50 mL/hr (02/24/25 0200) LDA: Indwelling Urinary Catheter Double Lumen (Greco) 16 Fr. (Active) Placement Date/Time: 02/22/25256 Placed by: Tamika Lynn RN Hand Hygiene Performed Prior to Insertion: Yes Sterile technique followed?: Yes Replacing catheter due to failed voiding trial?: No Catheter Type (REQUIRED): Double Lumen (Greco) Add... Greco Catheter Present?: Yes, INDICATION: Chronic Indwelling. PLAN FOR REMOVAL: No plan for removal. CODE STATUS: Full Code Total time spent 40 minutes, including time spent in [id number] evaluation and coordination of care Nelson Chand M.D. [facility] Internal [facility] * Nelson Chand M.D. - 02/23/2025 11:16 AM CDT Images from the original note were not included. Internal Medicine Progress Note Date of Admission: 02/22/2025 LOS: 1 day Primary Care Physician: Jeff Reyes M.D. SUBJECTIVE REASON FOR ADMISSION: Encephalopathy Metabolic [facility] Ramirez is a 75 y.o. gentleman with complex comorbidities including multiple sclerosis, paraplegia with chronic decubitus ulcer complicated by chronic ischial osteomyelitis, history of DVT and PE on Eliquis, diabetes mellitus type 2, hypertension, coronary artery disease, cholecystitisstatus post percutaneous cholecystostomy tube placement last exchanged 02/04/2025, neurogenic bladder and bowel. Patient presented from [facility] to [facility] Emergency Department 02/21 due to altered mental status, generalized pain with moaning, slurring his speech and eventually was briefly aphasic. Because of the aphasia, EMS activated pre-hospital stroke evaluation however it was reported that they were not convinced this was a stroke. On arrival to ED, were not able to detect any other focal deficits and patient was able to verbalize but unable to engage in meaningful conversation. He was found to be in BISHOP and also imaging studies at [place] showed: CT head Impression: No acute hemorrhage or large terriotry infarct. CT CAP Impression: 1. Improvement in minimal right lower lobe ground-glass and nodularity compared to a chest CT on 02/05/2025, likely aspiration. 2. Decompressed gallbladder with a cholecystostomy in place. Persistent indeterminate thickening and stranding of the gallbladder likely reflect chronic cholecystitis. 3. Indeterminate urinary bladder wall thickening with a Greco catheter in place. Recommend correlation with urinalysis. 4. Redemonstrated large soft tissue defect along the left ischial tuberosity with evidence of chronic osteomyelitis. Smaller soft tissue defect along the left posterior iliac bone with unchanged subtle sclerosis. No drainable fluid collection. The patient was eventually transferred to [facility] for further care, as it was suspected that the encephalopathy was secondary to underlying infection, however the source was not clear. Patient was started on broad spectrum antibiotics including Meropenem. Interval Updates Mentally improving, much more redirectable and cooperative today. Afebrile this morning. C/o generalized pain. Intake/Output Summary (Last 24 hours) at 02/23/2025 1117 Last data filed at 02/23/2025 0820 Gross per 24 hour Intake 1145 ml Output 1153 ml Net -8 ml OBJECTIVE VITAL SIGNS BP 135/60 Pulse 88 Temp 36 ??C (Temporal) Resp 16 Ht 182.9 cm Wt 107 kg SpO2 96% BMI 31.84 kg/m?? PHYSICAL EXAMINATION General: Alert and Orientated to self and place. HEENT: Normocephalic, atraumatic. No scleral icterus. Neck: Supple. No visible goiter. Cardiovascular: Normal rate, regular rhythm. Lungs: Clear to Auscultation Abdomen: Soft, nontender, nondistended. Extremities: No bilateral lower extremity edema. Right wrist range of motion preserved. Neurological: Paraplegic. Intake/Output Summary (Last 24 hours) at 02/23/2025 1117 Last data filed at 02/23/2025 0820 Gross per 24 hour Intake 1145 ml Output 1153 ml Net -8 ml DIAGNOSTICS Results from last 7 days Lab Units 02/22/25 0428 02/18/25 0715 WBC x10(9)/L 9.2 -- EXT WBC thou/cu mm -- 11.7* EXT HEMOGLOBIN g/dL -- 11.2* HEMOGLOBIN g/dL 10.1* -- HEMATOCRIT % 32.0* -- EXT HEMATOCRIT % -- 37.4 EXT PLATELETS AUTO thou/cu mm -- 219 PLATELETS AUTO x10(9)/L 231 -- Results from last 7 days Lab Units 02/23/25 0617 02/22/25 1513 02/22/25 0428 SODIUM P mmol/L 141 137 136 CHLORIDE P mmol/L 109* 105 104 BUN P mg/dL 36* 45* 48* CREATININE mg/dL 1.37* 1.86* 1.98* CALCIUM P mg/dL 9.1 9.5 9.6 Results from last 7 days Lab Units 02/23/25 0617 02/22/25 1513 02/22/25 0428 ALBUMIN P g/dL 2.6* 2.8* 3.0* AST P U/L 163* 214* 292* ALT P U/L 150* 184* 195* ALK PHOS P U/L 796* 995* 1008* BILIRUBIN DIRECT P mg/dL 1.0* 1.7* -- BILIRUBIN TOTAL P mg/dL 1.3* 2.2* 1.5* Micro: Results for orders placed or performed during the hospital encounter of 02/22/25 (from the past 2 weeks) Bacterial Culture, Aerobic + Susceptibility, Urine Specimen: Urine, Indwelling Catheter Specimen Source Site: Urine Result Value Urine Culture No growth after 1 day of incubation. SARS CoV-2, Influenza A/B, RSV, PCR Symptomatic Specimen: Nasopharynx; Swab Result Value Influenza A, PCR Undetected Influenza B, PCR Undetected Respiratory Syncytial Virus, PCR Undetected [id number], PCR Undetected Specimen Source Swab, Nasopharynx Gram Stain Specimen: Synovial Fluid, Right Wrist Specimen Source Site: Fluid Result Value Gram Stain No organisms seen. White blood cells present. Stain performed on concentrated cytospin preparation. Radiology: Reviewed pertinent radiology reports. Last 2 days: IR Percutaneous Cholecystostomy Tube Check Result Date: 02/22/2025 Impression: 1. Patent cholecystostomy tube. 2. Intermittent cystic duct obstruction; cystic duct isopen on today's exam. 3. Common bile duct sludge without causing hepatic ductal dilatation. RAD US Joint Aspiration and or Injection Right Result Date: 02/22/2025 Impression: 1. US-guided right wrist joint aspiration. DX Wrist Right 3+ Views Result Date: 02/22/2025 Impression: Spotty demineralization. No apparent fractures. Slight ulna minus variance. Chondrocalcinosis although to a much lesser degree than in 2017. DX Knee Right 4+ Views Result Date: 02/22/2025 Impression: Demineralization. No acute fracture. Moderate tricompartmental arthritis. Tiny joint effusion. Chondrocalcinosis. Small suprapatellar spur. MEDICATIONS: Scheduled Meds: allopurinoL, 100 mg, oral, Daily apixaban, 5 mg, oral, BID aspirin, 81 mg, oral, Daily atorvastatin, 80 mg, oral, Daily at bedtime bacitracin, 1 Application, topical, BID baclofen, 10 mg, oral, BID diclofenac sodium, 2 g, topical, 4x Daily ferrous sulfate, 65 mg of iron, oral, Daily with morning meal insulin aspart, 0-7 Units, subcutaneous, TID latanoprost, 1 drop, both eyes, Daily loratadine, 10 mg, oral, Daily at bedtime meropenem, 500 mg, intravenous, Q8H BERONICA metoprolol tartrate, 50 mg, oral, BID [Held by provider] NIFEdipine XL, 60 mg, oral, Daily pantoprazole, 40 mg, oral, BID before morning and evening meals sennosides, 8.6 mg, oral, BID sodium chloride, 3 mL, intravenous, Q24H BERONICA Continuous Infusions: Lactated Ringer's, 100 mL/hr, Last Rate: 100 mL/hr (02/23/25 0722) PRN Meds: acetaminophen D5W fentaNYL (PF) melatonin NaCl 0.9% NaCl 0.9% ondansetron oxyCODONE polyethylene glycol sennosides-docusate sodium sodium chloride sodium chloride ASSESSMENT / PLAN # Metabolic encephalopathy # Sepsis, gram negative bacillus blood stream of uncertain source - Blood cultures came back positive for gram negative aden in aerobic bottle from [place]. We arestill waiting speciation. Other contributing factor for the encephalopathy including dehydration and BISHOP. - His mental status is slowly improving yet not back to baseline. No longer having any slurred speech. - The patient was started on broad spectrum antibiotics, we will likely need to de-escalate as microbiology data evolves. Follow urine cultures, blood cultures. Will need to receive more information from [place]. # Dysphagia - [employer]ER recommended SB6 and mildly thick liquid. 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 Evaluated by general surgery and do not feel there is evidence of acute infection orneed for debridement. CT was reassuring, ruled out deep fluid collection. There is plan to follow with plastic surgery as outpatient however patient had been repeatedly admitted to the hospital for other reasons . - Wound care as per general surgery and wound care team. # Chronic cholecystitis s/p cholecystostomy tube # Elevated liver enzymes, with cholestatic pattern - Discussed with both IR Dr. Nunn and general surgery Dr. Barrientos, it was convincing that the cholecystomy tube is functioning at this time as the gallbladder is succesfully decompressed. Unclear reason for the cholecstatic pattern LFTs elevation, no convincing evidence of overt cholangitis at this ti me. Apparently cholangiogram per IR showed mccauley contrast into the duodenum, however there does appear to be 90% stenosis located superior to the cystic duct insertion, likely secondary to sludge, but there is no hepatic ductal dilatation. Will continue to trend LFTs. General surgery signed off at this time. - Refer to general surgery as outpatient for elective cholecystectomy. # Goals of care - Patient at this time is too confused to engage in goals of care discussion. Based on patient's daughter's report of his prior wishes and his POLST, patient will be FULL CODE at this time. Prognosisis poor given debility , multiple comorbidities and repeated hospitalization. Palliative care consult was recommended and patient's daughter will be involved for the discussion of goals of care. # BISHOP, likely pre-renal # Hyperkalemia, likely due to hypovolemia, s/p IVF and Lokelma # Hypovolemia - Received 2L in outside ED and maintenance fluid since. Will continue maintenance IVF at this time. Renal function improving Cr down from peak of 2.7. Continue to monitor. # Right wrist pain, likely due to gout # Hyperuricemia - Per family, patient had previously had similar issue with right wrist swelling and pain. IR aspirated right wrist and cell counts are not consistent with infection at this time. Uric acid crystal can be seen. The cell count is quite low thus likely we are not in an acute phase. Will hold off on treatment at this time. - Home allopurinol can be continued. # Anemia, chronic: no overt bleeding, will monitor. Has been on iron supplements. # Multiple sclerosis and paraplegia - continue baclofen and pain control once able to tolerate pills. # Hypertension: BP soft so will hold nifedipine, also holding lisinopril and furosemide/potassium supplements given BISHOP. Metoprolol switched to short acting. # Type 2 diabetes: last a1c 6.3%. holding metformin. Continue sliding scales. 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 He has a follow up CT angiogram ordered by outpatient oncology provider, to check for residual clot burden to assess his perioperative risk. Will not pursue this at this time as inpatient given his BISHOP. # CAD: continue aspirin and statins. No chest pain at this time. EKG reassuring. # Neurogenic bladder: maintain greco catheter. # Neurogenic bowel: continue bowel regimen. DISPOSITION: It is unsafe for Mr. Ramirez to be discharged from the hospital at this time. Potentialrisks and complications include incomplete treatment of sepsis infection secondary to inappropriatewound care. NUTRITION: Non-severe (moderate) Malnutrition (02/22/25) The patient meets the ASPEN Criteria of malnutrition based on: Energy Intake: Less than 75% of estimated energy requirement for greater than or equal to 7 days Interpretation of Weight Loss: greater than 7.5% 3 months Body Fat: Normal Muscle Mass: Normal Fluid Accumulation: Absent Reduced Pasting Inspector Strength: Not applicable This is in the context of Acute Illness or Injury. Agree with Registered Dietitian's assessment and treatment plan: Interventions: Other (Will monitor ability to advance diet. Recommend trial of liquacel supplementsBID given K is high. Once normalizes could switch to premier protein.) ANTICOAGULANTS/DVT PROPHYLAXIS: AntiCoag AntiPlatelet Meds IP/OP Direct Factor Xa Inhibitors Refills Start End apixaban tablet 5 mg (Eliquis) -- 02/22/2025 -- 5 mg, oral, 2 times daily DIET: Current Diet Adult Diet Dysphagia; Mildly Thick (MT2); Soft and Bite-Sized (SB6) starting at 02/23 100 INFUSIONS: Lactated Ringer's, 100 mL/hr, Last Rate: 100 mL/hr (02/23/25721) LDA: Indwelling Urinary Catheter Double Lumen (Greco) 16 Fr. (Active) Placement Date/Time: 02/22/25256 Placed by: Tamika Lynn RN Hand Hygiene Performed Prior to Insertion: Yes Sterile technique followed?: Yes Replacing catheter due to failed voiding trial?: No Catheter Type (REQUIRED): Double Lumen (Greco) Add... Greco Catheter Present?: Yes, INDICATION: Chronic Indwelling. PLAN FOR REMOVAL: No plan for removal. CODE STATUS: Full Code Total time spent 50 minutes, including time spent in [id number] evaluation and coordination of care Nelson Chand M.D. [facility] * Elder Barrientos M.D. - 02/23/2025 10:23 AM CDT General surgery progress note Subjective: No acute events. Patient doing much better this morning and is clear mentally. Not complaining of any abdominal pain. Objective: BP 135/60 Pulse 88 Temp 36 ??C (Temporal) Resp 16 Ht 182.9 cm Wt 107 kg SpO2 96% BMI 31.84 kg/m?? General: Awake and alert no acute distress and answering questions appropriately Abdomen: Soft. Mild tenderness with palpation in the upper abdomen. Cholecystostomy tube in place with small amount of bilious drainage Labs: LFTs all improving with total bilirubin trending down to 1.3. Alkaline phosphatase still elevated at 796 but improved from yesterday. Cholecystostomy tube cholangiogram: Yesterday demonstrated the cystic duct was patent and tube still in appropriate position. Exam also demonstrated findings consistent with common bile duct sludge without any dilation in the central bile ducts and contrast did flow into the duodenum. Assessment/plan: 75-year-old male with history of multiple sclerosis and paraplegia with neurogenic bowel and bladder with chronic decubitus ulcers. Also with history of pulmonary emboli on Eliquis. He presented withaltered mental status of unclear etiology. Cholecystostomy tube was place and functioning appropriately and cystic duct is patent, no concerns for cholecystitis. Still unclear what led to the elevation in LFTs but they do seem to be trending in the right direction. I confirmed with the patient thathis buttock and ischial wounds have both being getting treatment with wound VAC therapy. We will plan to resume this tomorrow, can continue with moist to dry gauze dressing for it today. No plans forany surgical intervention acutely, however can follow up in general surgery clinic to discuss interval cholecystectomy if desired.. General surgery will sign off but are available if there is any other questions or concerns going forward. Electronically signed by: Elder Barrientos M.D. 02/23/25 10:29 AM CDT * Rolly Field M.D. - 02/23/2025 9:55 AM CDT SUBJECTIVE Events over the past 24 hours: No acute events OBJECTIVE Admission Weight: 107 kg Current Weight: 107 kg VITAL SIGNS Temperature: [36 ??C-38.1 ??C] 36 ??C Resp Rate: [16-20] 16 Blood Pressure: (79-161)/(43-91) 135/60 SpO2: [91 %-97 %] 96 % Flow Rate (L/min): [0 L/min] 0 L/min Pulse Rate: [88-122] 88 Intake/Output Last 10 Days: Intake/Output 02/21/25 0700 - 02/22/25 0659 02/22/25 0700 - 02/23/25 0659 Intake (ml) 261.3 905 Output (ml) 133 1153 Net (ml) 128.3 -248 DIAGNOSTICS I have reviewed diagnostics. Studies of note include: ECG Demonstrating QTC Interval Date Value Ref Range Status 02/22/2025 403 ms Final Creatinine with Creatinine Clearance: Creatinine Date Value Ref Range Status 02/22/2025 1.86 (H) 0.74 - 1.35 mg/dL Final WBC w/diff: Leukocytes Date Value Ref Range Status 02/22/2025 9.2 3.4 - 9.6 x10(9)/L Final EXT Leukocytes Date Value Ref Range Status 02/18/2025 11.7 (H) 4.5 - 11.0 thou/cu mm Final LFTs showing: AST, Total, S Date Value Ref Range Status 12/26/2016 20 8 - 48 U/L Final Aspartate Aminotransferase (AST), P Date Value Ref Range Status 02/23/2025 163 (H) 8 - 48 U/L Final Alanine Aminotransferase (ALT), S Date Value Ref Range Status 12/14/2022 48 7 - 55 U/L Final Alanine Aminotransferase (ALT), P Date Value Ref Range Status 02/23/2025 150 (H) 7 - 55 U/L Final Bilirubin, Total, P Date Value Ref Range Status 02/23/2025 1.3 (H) 0.0 - 1.2 mg/dL Final Inflammatory markers of: Sedimentation Rate, B Date Value Ref Range Status 01/23/2025 109 (H) 3 - 28 mm/h Final 11/11/2022 74 (H) 0 - 22 mm/1 h Final C-Reactive Protein (CRP), P Date Value Ref Range Status 08/08/2024 424.0 (H) <5.0 mg/L Final EXT C-Reactive Protein (CRP), S Date Value Ref Range Status 02/06/2025 12.4 (H) <0.5 mg/dL Final IR Percutaneous Cholecystostomy Tube Check Result Date: 02/22/2025 Impression: 1. Patent cholecystostomy tube. 2. Intermittent cystic duct obstruction; cystic duct isopen on today's exam. 3. Common bile duct sludge without causing hepatic ductal dilatation. RAD US Joint Aspiration and or Injection Right Result Date: 02/22/2025 Impression: 1. US-guided right wrist joint aspiration. DX Wrist Right 3+ Views Result Date: 02/22/2025 Impression: Spotty demineralization. No apparent fractures. Slight ulna minus variance. Chondrocalcinosis although to a much lesser degree than in 2017. DX Knee Right 4+ Views Result Date: 02/22/2025 Impression: Demineralization. No acute fracture. Moderate tricompartmental arthritis. Tiny joint effusion. Chondrocalcinosis. Small suprapatellar spur. Microbiology Results (last 72 hours) Procedure Component Value - Date/Time Bacterial Culture, Aerobic + Susceptibility [[id number]] Collected: 02/22/25 1230 Lab Status: Preliminary result Specimen: Synovial Fluid, Right Wrist Updated: 02/23/25 0613 Bacterial Culture, Aerobic + Susc No growth to date Bacterial Culture, Anaerobic + Susceptibility [[id number]] Collected: 02/22/25 1230 Lab Status: In process Specimen: Synovial Fluid, Right Wrist Updated: 02/22/25 1248 Gram Stain [[id number]] Collected: 02/22/25 1230 Lab Status: Final result Specimen: Synovial Fluid, Right Wrist Updated: 02/22/25 1413 Gram Stain No organisms seen. White blood cells present. Stain performed on concentrated cytospin preparation. Bacterial Culture, Aerobic + Susceptibility, Urine [[id number]] Collected: 02/22/25 0502 Lab Status: Final result Specimen: Urine, Indwelling Catheter Updated: 02/23/25 0847 Urine Culture No growth after 1 day of incubation. SARS CoV-2, Influenza A/B, RSV, PCR Symptomatic [[id number]] Collected: 02/22/25 0502 Lab Status: Final result Specimen: Swab from Nasopharynx Updated: 02/22/25 0640 Influenza A, PCR Undetected Comment: Influenza A viral RNA absent. Influenza B, PCR Undetected Comment: Influenza B viral RNA absent. Respiratory Syncytial Virus, PCR Undetected Comment: RSV RNA absent. WDAQ-Posrguhyywl-4, PCR Undetected Comment: SARS-CoV-2 RNA absent. ----ADDITIONAL INFORMATION---- This RT-PCR test using the Xpert Xpress SARS-CoV-2/Flu/RSV assay ([employer] performed on the [employer] systems has received Emergency Use Authorization (EUA) by the U.S. Food and Drug Administration. Performance characteristics were verified by [facility] in a manner consistent with CLIA requirements. Fact sheets for this Emergency Use Authorization (EUA) assay can be found at the following links: For Healthcare Providers: https://www.fda.gov/media/724759/download For Patients: https://www.fda.gov/media/309243/download Specimen Source Swab, Nasopharynx Bacteria / Bautista Culture, Blood #2 [[id number]] Collected: 02/22/25 0435 Lab Status: Preliminary result Specimen: Blood, Peripheral Draw Updated: 02/23/25 0505 Bacteria/Bautista Culture, Blood No growth to date. Bacteria / Bautista Culture, Blood #1 [[id number]] Collected: 02/22/25 0428 Lab Status: Preliminary result Specimen: Blood, Peripheral Draw Updated: 02/23/25 0505 Bacteria/Bautista Culture, Blood No growth to date. ASSESSMENT / PLAN #1 Altered mental status #2 Chronic cholecystitis status post cholecystostomy tube last changed in 2024. Placed blair 7 day course of Bactrim and Augmentin. 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 Neurogenic bowel and bladder #7 Wrist swelling status post arthrocentesis inflammatory in etiology Mental status improving complained today more of abdominal pain on the right side. LFTs are improving. Arthrocentesis was done yesterday on the right wrist no concerns for septic arthritis. Given hischronic cholecystostomy tube and elevated LFTs on admission would favor continuing on meropenem while inpatient can transition to ertapenem 1 g IV Q 24 on discharge last day of antibiotic therapy would be on March 01 Primary Team Sign off antibiotics: Ertapenem 1 g IV Q 24 last day of therapy March 01 Please arrange Midline catheter prior to discharge. Monitoring lab recommendations: Yes, weekly on antibiotics. Complete blood count with differential,Alanine aminotransferase (ALT), and Creatinine. PICC/Therapy: OPAT team is notified, and will monitor labs as an outpatient. Follow up indicated: no. DIAGNOSES #1 Encephalopathy Metabolic Rolly Field M.D. * Moon Hussein P.A.-C., PTaylor, M.S. - 02/23/2025 7:50 AM CDT Right wrist aspiration performed yesterday. Aspiration results are consistent with gout, not septicarthritis. Orthopedics will sign off. * Nelson Chand M.D. - 02/22/2025 2:42 PM CDT HIM POST ROUND PROGRESS UPDATED AFTERNOON: Blood cultures came back positive for gram negative aden in aerobic bottle from [place]. Source of this is unclear at this time possible urinary versus biliary. Continue Meropenem. Ren Ramirez is a 75 y.o. gentleman with complex comorbidities including multiple sclerosis, paraplegia with chronic decubitus ulcer complicated by chronic ischial osteomyelitis, history of DVT and PE on Eliquis, diabetes mellitus type 2, hypertension, coronary artery disease, cholecystitisstatus post percutaneous cholecystostomy tube placement last exchanged 02/04/2025, neurogenic bladder and bowel. Patient presented from [facility] to [facility] Department 02/21 due to altered mental status, generalized pain with moaning, slurring his speech and eventually was briefly aphasic. Because of the aphasia, EMS activated pre-hospital stroke evaluation however it was reported that they were not convinced this was a stroke. On arrival to ED, were not able to detect any other focal deficits and patient was able to verbalize but unable to engage in meaningful conversation. He was found to be in BISHOP and also imaging studies at [facility] showed: CT head Impression: No acute hemorrhage or large terriotry infarct. CT CAP Impression: 1. Improvement in minimal right lower lobe ground-glass and nodularity compared to a chest CT on 02/05/2025, likely aspiration. 2. Decompressed gallbladder with a cholecystostomy in place. Persistent indeterminate thickening and stranding of the gallbladder likely reflect chronic cholecystitis. 3. Indeterminate urinary bladder wall thickening with a Greco catheter in place. Recommend correlation with urinalysis. 4. Redemonstrated large soft tissue defect along the left ischial tuberosity with evidence of chronic osteomyelitis. Smaller soft tissue defect along the left posterior iliac bone with unchanged subtle sclerosis. No drainable fluid collection. The patient was eventually transferred to [facility] for further care, as it was suspected that the encephalopathy was secondary to underlying infection, however the source was not clear. Patient was started on broad spectrum antibiotics including Meropenem. # Metabolic encephalopathy # Suspected sepsis - There has been concern for infection however source is unclear at this time. Other contributing factor for the encephalopathy including dehydration and BISHOP. - His mental status is slowly improving yet not back to baseline. No longer having any slurred speech. However remains delirious. - Would request formal speech evaluation for swallowing function as patient reported difficulty with swallowing pills. - The patient was started on broad spectrum antibiotics, we will likely need to de-escalate as microbiology data evolves. Follow urine cultures, blood cultures. Infectious disease consult. 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 Evaluated by general surgery and do not feel there is evidence of acute infection orneed for debridement. CT was reassuring, ruled out deep fluid collection. There is plan to follow with plastic surgery as outpatient however patient had been repeatedly admitted to the hospital for other reasons . - Wound care as per general surgery and wound care team. # Chronic cholecystitis s/p cholecystostomy tube # Elevated liver enzymes, with cholestatic pattern - Discussed with both IR Dr. Nunn and general surgery Dr. Barrientos, it was convincing that the cholecystomy tube is functioning at this time as the gallbladder is succesfully decompressed. Will watch output from the tube. Unclear reason for the cholecstatic pattern LFTs elevation, no convincing evidence of overt cholangitis at this time patient afebrile with normal leukocyte count, benign abdominal exam. Will repeat LFTs and watch the trend, and if there is overt signs of sepsis or worsening LFTs will consider obtain MRCP. # Goals of care - Patient at this time is too confused to engage in goals of care discussion. Based on patient's daughter's report of his prior wishes and his POLST, patient will be FULL CODE at this time. Prognosisis poor given debility , multiple comorbidities and repeated hospitalization. Palliative care consult was recommended and patient's daughter will be involved for the discussion of goals of care. # BISHOP, likely pre-renal # Hyperkalemia, likely due to hypovolemia, s/p IVF and Lokelma # Hypovolemia - Received 2L in outside ED and maintenance fluid since. Will continue maintenance IVF at this time. Renal function improving Cr down from 2.7 to 1.9. Continue to monitor. # Right wrist inflammatory arthritis, suspecting pseudogout - Per family, patient had previously had similar issue with right wrist swelling and pain and imaging consistent with chondrocalcinosis. IR aspirated right wrist and preminary findings are not consistent with infection at this time. Will hold off antiinflammatory of steroids at this time awaiting other infectious disease work up. To apply valtaren gel. # Anemia, chronic: no overt bleeding, will monitor. Has been on iron supplements. # Multiple sclerosis and paraplegia - continue baclofen and pain control once able to tolerate pills. # Hypertension: Continue metoprolol, resume nifedipine XL at a lower dose. Holding lisinopril and furosemide/potassium supplements given BISHOP. # Type 2 diabetes: last a1c 6.3%. holding metformin. Continue sliding scales. 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 He has a follow up CT angiogram ordered by outpatient oncology provider, to check for residual clot burden to assess his perioperative risk. Will not pursue this at this time as inpatient given his BISHOP. # CAD: continue aspirin and statins. No chest pain at this time. EKG reassuring. # Neurogenic bladder: maintain greco catheter. # Neurogenic bowel: continue bowel regimen. * Moon Hussein P.A.-Avi., P.A., M.S. - 02/22/2025 11:35 AM CDT Orthopedics was consulted for right wrist pain and concern for septic arthritis. Radiographs findings are consistent with gout/pseudogout. Dr. Greco recommends proceeding with aspiration of the wristfor further evaluation. Orthopedics will wait to evaluate the patient until aspiration results are back. * Carolyn Blackburn CCC-DOPE AND FABRIC WORKER - 02/22/2025 10:11 AM CDT Attempted to complete a bedside swallow evaluation; patient not alert and when eyes open refusals to participate. Communication of [facility] one time during attempt. Will continue to follow. documented in this encounter H&P Notes * Nneka Thomas M.B.B.S., M.D. - 02/22/2025 1:45 AM CDT Images from the original note were not included. Date of Admission: 02/22/2025 LOS: 0 days Primary Care Physician: Jeff Reyes M.D. SUBJECTIVE REASON FOR ADMISSION Encephalopathy Metabolic HISTORY OF PRESENT ILLNESS Ren Ramirez is a 75 y.o. male with a complex medical history including history of multiplesclerosis, paraplegic, he is bed-bound, history of DVT and PE on Eliquis, diabetes mellitus type 2,obesity, hyperlipidemia, hypertension, coronary artery disease, recent cholecystitis status post percutaneous cholecystostomy tube placement, history of stage IV sacral decubitus ulcer with ischial osteomyelitis, neurogenic bladder and bowel. Patient presented from nursing facility to [facility] last night because of change in mental status. Per report from the ED, patient was brought from the nursing facility because of a change in mental status, slurred speech, confusion and pain. I am unsure of patient's baseline but was told that patient is usually oriented. At this time, patient is unable to give any reliable history. He is able to answer yes or no to some questions and able to follow some command but his speech is not clear, he is very difficult to understand. He is mostly moaning, especially when his upper extremities are touched or when he is moved. REVIEW OF SYSTEMS Patient is unable to give a reliable history. ALLERGIES/CONTRAINDICATIONS Allergies Allergen Reactions Haemophilus Influenzae Other (see comments) Vancomycin Vancomycin Infusion Reaction Red Man Syndrome CURRENT MEDICATIONS Current Outpatient Medications on File Prior to Encounter Medication Sig Dispense Refill Last Dose/Taking AntifungaL, clotrimazole, 1 % cream Apply 1 Application topically 2 (two) times a day. 02/21/2025 Morning apixaban (Eliquis) 5 mg tablet Take 5 mg by mouth 2 (two) times a day. 02/21/20[address] Morning aspirin [address] tablet Take 1 tablet (81 mg total) by mouth daily. 60 tablet 0 02/21/2025 Morning bacitracin 500 unit/gram ointment Apply 1 Application topically 2 (two) times a day. 02/21/2025 Morning furosemide (Lasix) 40 mg tablet Take 40 mg by mouth every morning. 02/20/2025 Noon lisinopriL (PRINIVIL,ZESTRIL) 40 mg tablet Take 1 tablet (40 mg total) by mouth daily. 90 tablet 0 02/21/2025 Morning ondansetron (ZOFRAN) 4 mg tablet Take 4 mg by mouth every 6 (six) hours as needed for nausea or vomiting. 02/21/2025 Morning oxyCODONE (Roxicodone) 5 mg immediate release tablet Take 5 mg by mouth every 6 (six) hours as needed for severe pain or score 7-10 of 10. 02/21/2025 Morning acetaminophen (TylenoL) 500 mg tablet Take 2 tablets (1,000 mg total) by mouth 3 (three) times a day. Unknown allopurinoL (Zyloprim) 100 mg tablet Take 100 mg by mouth daily. 02/19/2025 Morning apixaban (Eliquis) 5 mg tablet Take 2 tablets (10 mg total) by mouth 2 (two) times a day for 3 days, THEN 1 tablet (5 mg total) 2 (two) times a day. 192 tablet 0 atorvastatin (Lipitor) 80 mg tablet Take 1 tablet (80 mg total) by mouth at bedtime. 90 tablet 3 02/18/2025 Bedtime baclofen (LIORESAL) 10 mg tablet Take 1 tablet (10 mg total) by mouth 2 (two) times a day. 60 tablet 0 02/20/2025 Evening calcium carbonate (TUMS) 500 mg (200 mg calcium) chewable tablet Chew 2 tablets (400 mg of calcium total) 2 (two) times a day. 02/15/2025 at 3:50 PM cetirizine (ZyrTEC) 10 mg tablet Take 10 mg by mouth at bedtime. 02/20/2025 at 8:42 PM cholecalciferol 25 mcg (1,000 unit) tablet Take 1 tablet (25 mcg total) by mouth daily. 02/19/2025 Morning diclofenac sodium (Voltaren) 1 % gel Apply 2 g topically 2 (two) times a day as needed (pain). Unknown ferrous sulfate tablet Take 325 mg by mouth daily. 02/19/2025 Morning furosemide (LASIX) 20 mg tablet Take 1 tablet (20 mg total) by mouth daily. 30 tablet 11 Unknown GAS RELIEF 80 mg chewable tablet Chew 1 tablet (80 mg total) 4 (four) times a day as needed for flatulence. Unknown latanoprost (XALATAN) 0.005 % ophthalmic solution Administer 1 drop into both eyes daily. 02/20/2025edtime melatonin 5 mg tablet Take 1 tablet (5 mg total) by mouth at bedtime as needed (for sleep). 30 tablet 11 Unknown metFORMIN (Glucophage) 500 mg tablet Take 500 mg by mouth daily before evening meal. 02/13/2025 Evening metoprolol succinate (TOPROL-XL) 100 mg 24 hr tablet Take 1 tablet (100 mg total) by mouth daily. Do not crush or chew. 90 tablet 0 02/19/2025 Morning NIFEdipine XL (PROCARDIA XL) 90 mg 24 hr tablet Take 1 tablet (90 mg total) by mouth daily. 90 tablet 0 pantoprazole (PROTONIX) 40 mg EC tablet Take 1 tablet (40 mg total) by mouth 2 (two) times a day before breakfast and dinner. 180 tablet 3 02/20/2025 Evening polyethylene glycol (MIRALAX) 17 gram powder packet Take 1 packet (17 g total) by mouth daily as needed for constipation. Dissolve each 17 g dose in 240 mLs (8 ounces) of beverage. 30 each 1 02/13/2025 Noon potassium chloride 10 mEq ER capsule Take 1 capsule (10 mEq total) by mouth 2 (two) times a day with meals. Unknown senna 8.6 mg tablet Take 8.6 mg by mouth 2 (two) times a day. 02/11/2025 Morning sennosides-docusate sodium (SENOKOT-S) 8.6-50 mg per tablet Take 1 tablet by mouth 2 (two) times a day as needed for constipation. 02/11/2025 Morning Patient History MEDICAL HISTORY Patient Active Problem List Diagnosis Hypertension Essential Primary Multiple Sclerosis (HCC) Hypokalemia Neuromuscular Dysfunction Of Bladder Unspecified Neurogenic Bowel Hypoalbuminemia Atherosclerotic Heart Disease Of [place] Coronary Artery Without Angina Pectoris Paraparesis Spastic (HCC) Abdominal Pain Hematemesis Hematochezia Nausea COVID-19 Infection Apnea Sleep Obstructive Lymphedema Weakness General Body Mass Index 33.0 To 33.9 Adult Acute Cystitis With Hematuria Fracture Femoral Condyle Closed Initial Right (HCC) Fracture Hip Closed Initial Right (HCC) Osteoporosis Hip With Pathological Fracture Initial Right ([facility]) Open Reduction Internal Fixation Hip Status Post Paraplegia ([facility]) Embolus Pulmonary (HCC) Acute Embolism And Thrombosis Of Other Specified Deep Vein Of Lower Extremity Bilateral ([facility]) Body Mass Index 34.0 To 34.9 Adult Encephalopathy Metabolic Past Medical History: Diagnosis Date Apnea Sleep Obstructive Arthritis Rheumatoid (HCC) Coronary Artery Disease (Unspecified) Glaucoma Heart Failure NOS Hyperlipidemia Hypertension NOS Multiple Sclerosis (HCC) Non-ST Elevation Myocardial Infarction ([facility]) 05/26/2018 Open Reduction Internal Fixation Hip Status Post 12/22/2022 Other Specified Health Status Pressure Injury (Ulcer) Of Sacral Region Stage 4 ([facility]) 03/24/2017 Sleep Apnea SURGICAL HISTORY Past Surgical [...] Neg Hx Miscarriages / Stillbirths Neg Hx SOCIAL HISTORY Social History Tobacco Use Smoking status: Former Current packs/day: 0.00 Types: Cigarettes Quit date: 1977 Years since quittin.6 Passive exposure: Never Smokeless tobacco: Not on file Substance Use Topics Alcohol use: Not Currently Alcohol/week: 1.0 standard drink of alcohol Types: 1 Cans of beer per week OBJECTIVE VITAL SIGNS BP (!) 132/52 (BP Location: Right arm;Upper, Patient Position: Semi-recumbent) Pulse (!) 113 Temp 36.3 ??C (Temporal) Resp 18 Ht 182.9 cm Wt 107 kg SpO2 90% BMI 31.84 kg/m?? PHYSICAL EXAMINATION General: Alert and Oriented to person and time. His speech is not clear and difficult to understandbut patient is able to answer some questions. He is afebrile. He is on room air. He is moaning in pain. HEENT: Normocephalic, atraumatic. No scleral icterus. Oral mucosa moist. Neck: Supple. No lymphadenopathy. Cardiovascular: S1-S2, tachycardic. Lungs: Clear to Auscultation. On room air, not dyspneic. Abdomen: Soft, did not elicit any tenderness. Not distended. Bowel sounds present. Patient has a drain in his right upper quadrant, draining a lot of bilious fluid. Skin: Decubitus ulcers, picture above. Extremities: No bilateral lower extremity edema. The right wrist is swollen, erythematous and tender. The whole right upper extremity appears erythematous, warm and tender. Right knee is also tender. Neurological: Speech is difficult to understand, difficulty involving. However, patient is awake and alert. No intake or output data in the 24 hours ending 02/22/25 0223 DIAGNOSTICS Data Review CBC: Results from last 7 days Lab Units 02/18/25 0715 EXT WBC thou/cu mm 11.7* EXT HEMOGLOBIN g/dL 11.2* EXT HEMATOCRIT % 37.4 EXT PLATELETS AUTO thou/cu mm 219 BMP: Results from last 7 days Lab Units 02/18/25 0715 EXT SODIUM mmol/L 138 EXT CHLORIDE mmol/L 106 EXT BUN mg/dL 22 EXT CREATININE mg/dL 0.94 EXT CALCIUM mg/dL 9.7 Coagulation: Cardiac Markers: Liver Panel: Microbiology: No results found for this visit on 02/22/25 (from the past 72 hours). EKG: Radiology: DX Wrist Right 2 Views (Results Pending) DX Knee Right 2 View (Results Pending) ASSESSMENT / PLAN Metabolic encephalopathy Chronic cholecystitis Chronic osteomyelitis, with stage IV decubitus ulcers. Possible UTI Right upper extremity cellulitis - right wrist is swollen and red. Patient was initially evaluated for stroke, tele neuro was called and there was no concern for stroke at that time. CT head did not show any acute infarct or bleed. Patient was also not meet criteriafor tPA. Change in mental status was attributed to possible infection. Patient has multiple sourcesof possible infection including chronic cholecystitis for which he has percutaneous cholecystostomytube, he also has multiple decubitus ulcers, stage IV with chronic osteomyelitis, CT also shows thickening of the urinary bladder. Will send urinalysis or there is concern for contamination. Lactic acid was 1.9. Patient was given meropenem in the ED. WBC 10.87, lactic acid 1.9, AST 113, ALT 84. Lipase 55. Of note, patient recently completed a course of antibiotics Augmentin close Bactrim. It was reported that patient responded more after receiving hydration in the ED. patient received a total of 2 L, continue hydration with IV fluids. At this time, I will send blood cultures and urine cultures, repeat lactic acid, continue meropenem plus Flagyl. X-rays, right wrist ordered. Swallow evaluation prior to feeding patient. Consult General surgery as needed. BISHOP - creatinine has increased gradually in recent times from normal to 2.7. Patient received about2 L of fluids at [place]. At this time, continue hydration while patient is NPO. Renal functionsimproved. Hyperkalemia - K 5.3, repeat 5.8 - will give Lokelma now. Check EKG. Hyponatremia - Na 133, resolved, now 136. Recent cholecystitis, status post percutaneous cholecystostomy tube placement. The ED called and discussed with general surgery, Dr. Barrientos who says there is no immediate surgical needs. Stage IV sacral decubitus ulcer with ischial osteomyelitis - see pictures on chart. Wound care consult. From chart review, it seems like patient was scheduled to see Plastic surgery outpatient. Anemia - hemoglobin is stable at 9.9. Monitor H&H and transfuse if needed. History of DVT/PE - on Eliquis. Diabetes mellitus type 2 - most recent A1c was 6.3 on 02/18/2025. We will do swallow evaluation prior to feeding patient. Use insulin correction scale for now. Monitor Accu-Cheks. Hyperlipidemia - patient takes Lipitor. Hypertension - resume home nifedipine, hold lisinopril in the setting of BISHOP. Monitor vital signs. Resume lisinopril when appropriate. Coronary artery disease - troponin was negative. Patient complained of right- sided chest pain, reproducible by touching. Get EKG. Multiple sclerosis - continue baclofen and pain control. Patient is complaining of pain in his hands, right wrist is noted to be red and swollen, right knee is also tender. X-rays ordered. PTOT. Paraplegic. Neurogenic bladder and bowel. Frequent turning, pain control. PTOT. Patient has a Greco catheter in place, draining cloudy urine.Send urinalysis. ANTICOAGULANTS/DVT PROPHYLAXIS: AntiCoag AntiPlatelet Meds IP/OP Direct Factor Xa Inhibitors Refills Start End apixaban tablet 5 mg (Eliquis) -- 02/22/2025 -- 5 mg, oral, 2 times daily DIET: Current Diet None INFUSIONS: NaCl 0.9% infusion, 75 mL/hr, Last Rate: 75 mL/hr (02/22/25 0209) LDA: Indwelling Urinary Catheter (Active) Placement Date/Time: 08/08/24521 Greco Catheter Present?: No. CODE STATUS: Full Code - unable to clarify code status at this time. His daughter is his proxy, check with daughter in the morning. Anticipated discharge date and discharge in 2 - 3 days. Total time spent 75 minutes. Pari Villanueva M.D. documented in this encounter Procedure Notes * Asia Maxwell R.N. 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 Authorized by: Ren Sung M.D. Care team members present 1. Asia Maxwell R.N. 3. Melissa Madrigal R.N. PROCEDURE DETAILS Select line: Midline Line type: temporary (non-tunneled, non-implanted) Line size: 3.0 FR Catheter to vein ratio less than 45%: yes Adult or Richard/Peds: adult # of lumens: single lumen Type of catheter: non-valved Laterality: left IV location: cephalic Optimal site selected: yes Number of insertion attempts: 1 Blood return: yes Placement assistance: ultrasound guided Ultrasound image guidance used to localize target, identify at risk structures, and dynamically used to direct therapy to the target. Image(s) acquired and saved. Catheter length (cm): 12 Initial exposed catheter (cm): 0 Mid upper arm circumference (cm): 33 All lumens flushed (Document volume in I/O): yes CONSENT Consent obtained: verbal Consent given by: Patient's daughter. The benefits, risks and alternatives to the procedure and the potential need for sedation or anesthesia as well as the names, roles, and responsibilities of healthcare team members performing significant interventional tasks were discussed with the patient and/or decision maker. UNIVERSAL PROTOCOL All relevant documentation and testing were reviewed and available. All required blood products, implants, devices and or special equipment were made available as applicable. Pre-procedure verification was conducted and the correct site was marked if required. A fire risk and smoke assessment were done as applicable. The procedural time-out to verify correct patient, correct side/site, and procedure was conducted prior to performing the procedure and confirmed in a procedural pause. PRE-PROCEDURE DETAILS Indications: Needed after discharge for ongoing care Appropriate hand hygiene, gown, cap, mask, protective eyewear, sterile gloves, skin preparation, sterile drape, and strict aseptic technique were utilized as applicable for the procedure.: yes Site preparation: Chlorhexidine SEDATION / ANESTHESIA Anesthesia method: local infiltration Local infiltrate type: lidocaine POST-PROCEDURE DETAILS Procedure completed successfully: yes Complications: no apparent complications * Vivian Smith R.N., LAKISHA - 02/26/2025 2:08 PM CDTAssociated Order(s): Wound Vac Post-Procedure Diagnose(s): Pressure Ulcer Of Unspecified Site Stage 4 (HCC) Wound Vac Performed by: Vivian Smith R.N., LAKISHA Authorized by: Ren Sung M.D. Care team members present 1. Martine Deluna R.N., Vannesa PROCEDURE DETAILS Type of wound vac procedure: dressing change Wound location: sacrum/buttock (left IT buttock wound) Wound laterality: left Wound width (cm): 3.5 Wound length (cm): 6 Wound depth (cm): 3.5 $ - Wound area (l x w - Sq. cm): 21 Tunneling: yes Undermining: yes Wound device type: standard Drainage present: yes Amount of drainage: moderate (50 - 200 mL) Type of drainage: sanguinous Wound vacuum seal (mmHg): 125 Type of suction: continuous Wound vac intensity: low Number of sponges placed: 1 CONSENT Consent obtained: verbal Consent given by: patient The benefits, risks and alternatives to the procedure and the potential need for sedation or anesthesia as well as the names, roles, and responsibilities of healthcare team members performing significant interventional tasks were discussed with the patient and/or decision maker. UNIVERSAL PROTOCOL All relevant documentation and testing were reviewed and available. All required blood products, implants, devices and or special equipment were made available as applicable. Pre-procedure verification was conducted and the correct site was marked if required. A fire risk and smoke assessment were done as applicable. The procedural time-out to verify correct patient, correct side/site, and procedure was conducted prior to performing the procedure and confirmed in a procedural pause. PRE-PROCEDURE DETAILS Indications: wound Appropriate hand hygiene, gown, cap, mask, protective eyewear, sterile gloves, skin preparation, sterile drape, and strict aseptic technique were utilized as applicable for the procedure: yes Procedure prep: vashe and no sting barrier film. 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 Care team members present 1. Martine Deluna R.N., Vannesa PROCEDURE DETAILS Type of wound vac procedure: dressing change Wound location: sacrum/buttock (left sacrum/low back) Wound laterality: left Wound width (cm): 2.5 Wound length (cm): 2.5 Wound depth (cm): 1.5 $ - Wound area (l x w - Sq. cm): 6.3 Tunneling: yes Undermining: yes Wound device type: standard Drainage present: yes Amount of drainage: moderate (50 - 200 mL) Type of drainage: sanguinous Number of sponges removed: 1 Wound vacuum seal (mmHg): 125 Type of suction: continuous Wound vac intensity: low Number of sponges placed: 1 CONSENT Consent obtained: verbal The benefits, risks and alternatives to the procedure and the potential need for sedation or anesthesia as well as the names, roles, and responsibilities of healthcare team members performing significant interventional tasks were discussed with the patient and/or decision maker. UNIVERSAL PROTOCOL All relevant documentation and testing were reviewed and available. All required blood products, implants, devices and or special equipment were made available as applicable. Pre-procedure verification was conducted and the correct site was marked if required. A fire risk and smoke assessment were done as applicable. The procedural time-out to verify correct patient, correct side/site, and procedure was conducted prior to performing the procedure and confirmed in a procedural pause. PRE-PROCEDURE DETAILS Indications: wound Appropriate hand hygiene, gown, cap, mask, protective eyewear, sterile gloves, skin preparation, sterile drape, and strict aseptic technique were utilized as applicable for the procedure: yes Procedure prep: vashe and no sting barrier film. POST-PROCEDURE DETAILS Procedure successful: yes Complications: no apparent complications * Paty Duque R.N., Vannesa, LAKISHA - 02/24/2025 12:15 PM CDTAssociated Order(s): Wound Vac Post-Procedure Diagnose(s): Pressure Ulcer Of Unspecified Site Stage 4 (HCC) Wound Vac Performed by: Paty Duque R.N., Vannesa, LAKISHA Authorized by: Nelson Chand M.D. Care team members present 1. Vivian Smith R.N., CWON PROCEDURE DETAILS Type of wound vac procedure: first time application Location: Ischial Tuberosity. Wound laterality: left Percent of granulation tissue: 50 Bleeding/oozing: controlled Wound width (cm): 9 Wound length (cm): 2.5 Wound depth (cm): 4 $ - Wound area (l x w - Sq. cm): 22.5 Tunneling: no Undermining: yes Wound description: Stage 4 Pressure Ulceration Wound device type: standard Debridement performed: no Drainage present: yes Amount of drainage: moderate (50 - 200 mL) Type of drainage: serosanguinous Wound vacuum seal (mmHg): 125 Type of suction: continuous Wound vac intensity: low Number of sponges placed: 2 CONSENT Consent obtained: verbal The benefits, risks and alternatives to the procedure and the potential need for sedation or anesthesia as well as the names, roles, and responsibilities of healthcare team members performing significant interventional tasks were discussed with the patient and/or decision maker. UNIVERSAL PROTOCOL All relevant documentation and testing were reviewed and available. All required blood products, implants, devices and or special equipment were made available as applicable. Pre-procedure verification was conducted and the correct site was marked if required. A fire risk and smoke assessment were done as applicable. The procedural time-out to verify correct patient, correct side/site, and procedure was conducted prior to performing the procedure and confirmed in a procedural pause. PRE-PROCEDURE DETAILS Indications: wound Appropriate hand hygiene, gown, cap, mask, protective eyewear, sterile gloves, skin preparation, sterile drape, and strict aseptic technique were utilized as applicable for the procedure: yes Procedure prep: 3M No sting barrier film, Vashe, Stoma Powder. 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 Care team members present 1. Vivian Smith R.N., CWON PROCEDURE DETAILS Wound location: sacrum/buttock Wound laterality: midline Percent of granulation tissue: 100 Bleeding/oozing: controlled Wound width (cm): 4.3 Wound length (cm): 3.5 Wound depth (cm): 1.5 $ - Wound area (l x w - Sq. cm): 15.1 Tunneling: no Undermining: no Wound description: Stage 4 Pressure Ulcer Wound device type: standard Debridement performed: no Drainage present: yes Amount of drainage: scant (< 50 mL) Type of drainage: serosanguinous CONSENT Consent obtained: verbal Consent given by: patient The benefits, risks and alternatives to the procedure and the potential need for sedation or anesthesia as well as the names, roles, and responsibilities of healthcare team members performing significant interventional tasks were discussed with the patient and/or decision maker. UNIVERSAL PROTOCOL All relevant documentation and testing were reviewed and available. All required blood products, implants, devices and or special equipment were made available as applicable. Pre-procedure verification was conducted and the correct site was marked if required. A fire risk and smoke assessment were done as applicable. The procedural time-out to verify correct patient, correct side/site, and procedure was conducted prior to performing the procedure and confirmed in a procedural pause. PRE-PROCEDURE DETAILS Indications: wound Appropriate hand hygiene, gown, cap, mask, protective eyewear, sterile gloves, skin preparation, sterile drape, and strict aseptic technique were utilized as applicable for the procedure: yes Procedure prep: 3M No Sting Barrier Film, Stoma Powder, Vashe. SEDATION / ANESTHESIA Anesthesia method: none POST-PROCEDURE DETAILS Procedure successful: yes Complications: no apparent complications * Anuel Nunn M.D. - 02/22/2025 4:05 PM CDT BRIEF POST PROCEDURE NOTE Vascular & Interventional Radiology PROCEDURE Blanca tube check PRE-PROCEDURE DIAGNOSIS Cholecystitis, intermittent cystic duct occlusion POST-PROCEDURE DIAGNOSIS Same. PROCEDURE DETAILS / FINDINGS Patent cholecystostomy tube. Cystic duct is patent on today's exam. Common bile duct contains sludge causing 90% stenosis superior to the cystic duct insertion point. However, no intrahepatic biliaryductal dilatation is noted. Contrast rapidly flows into the duodenum. Blanca tube was left in place.Please see Radiology Report for full details. [employer] Ollie Nunn M.D. SPECIMENS REMOVED None. ESTIMATED BLOOD LOSS Nil COMPLICATIONS None. PATIENT DISPOSITION Return to inpatient bed. PLAN Routine blanca tube exchange. No need to flush the blanca tube unless concerned for catheter obstruction. * Anuel Nunn M.D. - 02/22/2025 12:30 PM CDT BRIEF POST PROCEDURE NOTE Vascular & Interventional Radiology PROCEDURE Right dorsal wrist aspiration PRE-PROCEDURE DIAGNOSIS Right wrist pain POST-PROCEDURE DIAGNOSIS Same. PROCEDURE DETAILS / FINDINGS Minimal fluid at the right wrist. Largest pocket targeted at the level of the carpal bones. 0.5 mL minimal fluid + debris aspirated. Please see Radiology Report for full details. [employer] Ollie Nunn M.D. SPECIMENS REMOVED 0.5 mL minimal fluid + debris ESTIMATED BLOOD LOSS <5ml COMPLICATIONS None. PATIENT DISPOSITION Return to inpatient bed. documented in this encounter Consult Notes * Alycai Del Toro M.D. - 02/25/2025 5:05 PM CDTAssociated Order(s): IP CONSULT TO PALLIATIVE CARE PALLIATIVE MEDICINE CONSULT SUBJECTIVE PRIMARY CARE PROVIDER: Jeff Reyes M.D. REFERRING SERVICE: Hospitalist REASON FOR CONSULT: assistance with clarification of goals of care. goals of care discussion, daughter samantha orsa PRIMARY CONSULT DIAGNOSIS: Infectious Disease PRESENT DURING CONSULT: Patient, patient's daughter (Meredith Montgomery) Medical team: Dr. Alycia Del Toro HISTORY OF PRESENT ILLNESS: History was obtained from chart review, speaking with providers, bedside RN, the patient, and family. Ren Ramirez is a 75 y.o. 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 The patient was eventually transferred to [facility] for further care, as it was suspected that the encephalopathy was secondary to underlying infection, however the source was not clear. Patient was started on broad spectrum anti biotics including Meropenem. IR was consulted for right dorsal wrist aspiration for concern of possible septic arthritis. IR and general surgery consulted for chronic cholecystitis s/p cholecystostomy tube. Cholecystomy tube is functioning at this time as the gallbladder is succesfully decompressed. Unclear reason for the cholecstatic pattern LFTs elevation, no convincing evidence of overt cholangitis at this time. Apparently cholangiogram per IR showed mccauley contrast into the duodenum, howeverthere does appear to be 90% stenosis located superior to the cystic duct insertion, etiology unclear but likely secondary to sludge, but there is no hepatic ductal dilatation. Case was reviewed by general surgery and gastroenterology, do not feel there is indication for any intervention at this time. Palliative medicine was consulted for exploration of understanding of illness, assistance with complex medical decision-making, and providing anticipatory guidance in the setting of multiple medical comorbidities and recurrent hospitalizations. Baseline status: -- Cognitive: AAOx3, no cognitive deficits. -- Functional: Patient used to operate a motorized wheelchair while at [facility] senior living facility. -- Nutritional: Patient reports adequate nutrition and adds that he tries to drink protein shakes to supplement. He does admit to not drinking enough fluids. Social and cultural aspects of care: Patient's in 2021, since then he has moved into a senior living facility. He andhis have 3 children together. Patient requires a greco catheter. Patient's daughter is a greatadvocate for him and is very supportive of Mr. Ramirez's wishes. Medications Scheduled Medication Ordered Dose/Rate, Route, Frequency Last Action allopurinoL tablet 100 mg (Zyloprim) 100 mg, oral, Daily Given, 100 mg at 02/26 812 apixaban tablet 5 mg (Eliquis) 5 mg, oral, BID Given, 5 mg at 02/25 813 atorvastatin tablet 80 mg (Lipitor) 80 mg, oral, Daily at bedtime Given, 80 mg at 02/24 2138 bacitracin 500 unit/gram ointment 1 Application 1 Application, top, BID Given, 1 Application at 02/25 813 baclofen tablet 10 mg (LioresaL) 10 mg, oral, BID Given, 10 mg at 02/25 813 diclofenac sodium 1 % gel 2 g (Voltaren) 2 g, top, 4x Daily Given, 2 g at 02/25 813 ertapenem injection 1 g (INVanz) 1 g, IV, Daily Given, 1 g at 02/26 812 ferrous sulfate tablet 65 mg of iron 65 mg of iron, oral, Daily with morning meal Given, 65 mg of iron at 02/25 813 insulin aspart U-100 injection 0-7 Units (NovoLOG FlexPen) 0-7 Units, SC, TID Ordered latanoprost 0.005 % ophthalmic solution 1 drop (Xalatan) 1 drop, both eyes, Daily Given, 1 drop at 02/24 2142 loratadine tablet 10 mg (Claritin) 10 mg, oral, Daily at bedtime Given, 10 mg at 02/24 2139 melatonin tablet 4.5 mg 5 mg, oral, Daily at bedtime Given, 4.5 mg at 02/24 2139 metoprolol tartrate tablet 50 mg (Lopressor) 50 mg, oral, BID Given, 50 mg at 02/[address] tablet 40 mg (Protonix) 40 mg, oral, BID before morning and evening meals Given, 40 mg at 02/25 1501 sennosides tablet 8.6 mg (Senokot) 8.6 mg, oral, BID Given, 8.6 mg at 02/24 2139 sodium chloride 0.9 % injection 3 mL 3 mL, IV, Q24H BERONICA Given, 3 mL at 02/25 814 PRN Medication Ordered Dose/Rate, Route, Frequency Last Action acetaminophen tablet 1,000 mg (TylenoL) 1,000 mg, oral, Q6H PRN Given, 1,000 mg at 02/23 818 D5W infusion 1-999 mL/hr, IV, PRN Ordered fentaNYL injection 25 mcg (Sublimaze) 25 mcg, IV, Q4H PRN Given, 25 mcg at 02/22 0208 NaCl 0.9% infusion 1-999 mL/hr, IV, PRN Ordered NaCl 0.9% infusion 1-999 mL/hr, IV, PRN Ordered ondansetron (PF) injection 4 mg (Zofran) 4 mg, IV, Q6H PRN Ordered oxyCODONE IR tablet 2.5 mg (Roxicodone) 2.5 mg, oral, Q6H PRN Given, 2.5 mg at 02/22 2043 polyethylene glycol powder packet 17 g (Miralax) 17 g, oral, Daily PRN Ordered sennosides-docusate sodium 8.6-50 mg per tablet 1 tablet (Senokot-S) 1 tablet, oral, BID PRN Ordered sodium chloride 0.9 % injection 10 mL 10 mL, IV, PRN Ordered sodium chloride 0.9 % injection 3 mL 3 mL, IV, PRN Ordered OBJECTIVE PHYSICAL EXAMINATION Temperature: [35.8 ??C-36 ??C] 36 ??C Heart Rate: [70-71] 71 Resp Rate: [14-24] 24 Blood Pressure: (118-145)/(63-96) 138/66 SpO2: [92 %-98 %] 98 % Weight: [99.7 kg] 99.7 kg BMI (Calculated): [29.8 kg/m??] 29.8 kg/m?? Pulse Rate: [70-71] 71 General: Patient is frail, elderly-appearing, and pleasant. Resting supine in bed. Appears in no acute distress. Respiratory: Respirations are regular and unlabored. No increased work of breathing noted. Able to speak full sentences. Extremities: Upper extremities are warm. Neurologic: Alert. Engages in conversation. Provides a good history. Speech is clear and understandable. Gait is not witnessed during my encounter. PALLIATIVE PERFORMANCE SCALE (PPS): 50%- Mainly sit/lie, Unable to do any work with extensive evidence of disease, Considerable assistance required for self-care, Normal or reduced intake, Full level of consciousness or confusion DIAGNOSTICS: Reviewed prior external notes from unique sources and results of unique tests. Reviewed test interpretation and management with primary team/specialty. I have reviewed labs and CT. Imaging studies at [place] showed: CT head Impression: No acute hemorrhage or large terriotry infarct. CT CAP Impression: 1. Improvement in minimal right lower lobe ground-glass and nodularity compared to a chest CT on 02/05/2025, likely aspiration. 2. Decompressed gallbladder with a cholecystostomy in place. Persistent indeterminate thickening and stranding of the gallbladder likely reflect chronic cholecystitis. 3. Indeterminate urinary bladder wall thickening with a Greco catheter in place. Recommend correlation with urinalysis. 4. Redemonstrated large soft tissue defect along the left ischial tuberosity with evidence of chronic osteomyelitis. Smaller soft tissue defect along the left posterior iliac bone with unchanged subtle sclerosis. No drainable fluid collection. Results from last 7 days Lab Units 02/25/25 0759 02/24/25 0544 02/22/25 0428 WBC x10(9)/L 7.0 6.8 9.2 HEMOGLOBIN g/dL 9.1* 9.2* 10.1* HEMATOCRIT % 29.8* 30.2* 32.0* PLATELETS AUTO x10(9)/L 201 222 231 Results from last 7 days Lab Units 02/25/25 0759 02/24/25 0544 02/23/25 0617 02/22/25 1513 02/22/25 0428 SODIUM P mmol/L 144 143 141 137 136 CREATININE mg/dL 0.88 1.02 1.37* 1.86* 1.98* ESTIMATED GFR EGFR mL/min/BSA 90 77 54* 37* 35* BUN P mg/dL 17 25* 36* 45* 48* CHLORIDE P mmol/L 111* 109* 109* 105 104 Results from last 7 days Lab Units 02/25/25 0759 02/24/25 0544 ALBUMIN P g/dL 2.9* 2.8* AST P U/L 53* 112* ALT P U/L 90* 131* ALK PHOS P U/L 705* 749* BILIRUBIN DIRECT P mg/dL 0.3 0.5* BILIRUBIN TOTAL P mg/dL 0.4 0.7 ASSESSMENT / PLAN #1 Encephalopathy Metabolic #2 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 The patient was eventually transferred to [facility] for further care, as it was suspected that the encephalopathy was secondary to underlying infection, however the source was not clear. Patient was started on broad spectrum antib iotics including Meropenem. IR was consulted for right dorsal wrist aspiration for concern of possible septic arthritis. IR and general surgery consulted for chronic cholecystitis s/p cholecystostomytube. Cholecystomy tube is functioning at this time as the gallbladder is succesfully decompressed.Unclear reason for the cholecstatic pattern LFTs elevation, no convincing evidence of overt cholangitis at this time. Apparently cholangiogram per IR showed mccauley contrast into the duodenum, however there does appear to be 90% stenosis located superior to the cystic duct insertion, etiology unclearbut likely secondary to sludge, but there is no hepatic ductal dilatation. Case was reviewed by general surgery and gastroenterology, do not feel there is indication for any intervention at this time. Palliative medicine was consulted for exploration of understanding of illness, assistance with complex medical decision-making, and providing anticipatory guidance in the setting of multiple medical comorbidities and recurrent hospitalizations. PLAN: # ADVANCE CARE PLANNING: Advance care planning: Patient and family participated in these discussions voluntarily. Understanding of Illness: Introduced the role of the palliative medicine team in exploring understanding of illness, assisting with complex medical decision- making, and providing anticipatory guidance in the setting of serious illness. We discussed events of current hospitalization, disease processes/trajectory and uncertainty of long-term prognosis. Samantha states that today is the first day that the patient is awake, alert, and back to normal. She reports he often has change in mentation and delirium when he is hospitalized for infections. Samantha was able to summarize the information shared by the specialty teams and has a good understanding of illness. Patient reports his ultimate goal would be to have his gallbladder removed as the cholecystostomy tube causes great discomfort. He reports that recurrent hospitalizations have taken a toll on him and that he has noticed increase in weakness which further limits his functional ability. Consultation also involved decision regarding hospitalization or escalation of hospital-level care, decision not to resuscitate or to de-escalate carebecause of poor prognosis, and complex symptom management with use of parenteral controlled substances. Quality of life factors/Values and preferences: Patient's goals are life prolonging. His ultimate goal is to treat infections to reduce recurrent hospitalizations. He hopes he can have his gallbladder removed as he states this is a source of great discomfort and decreased his quality of life over the past several months. Education provided regarding next steps: We discussed available care pathways as outlined in the POLST documentation including full treatment, selective treatment, and symptom only focused treatment/comfort measures. We discussed the benefits and limitations of all pathways and reviewed clinical scenarios at which time each pathways may become appropriate. We also reviewed patient's previous completed POLST. Prognosis: Discuss the benefits and burdens of undergoing resuscitation attempt given frailty, poorfunctional quality at baseline, and recurrent infections. Education provided regarding these measures. Made recommendations given their focus/desire to remain independent and quality of life factors.We discussed openly and honestly, but gently, the benefit versus burden of undergoing resuscitationattempt and the likely, as well as potential, outcomes. Total ACP time spent: 60 minutes # CAPACITY FOR COMPLEX DECISION MAKING: At this time, the patient does demonstrate capacity to make complex medical decisions, in the setting of current/longstanding medical circumstance. Based off conversations held during this hospitalization, patient's daughter (Samantha) appears to be acting in the patient???s best interest and known preferences. Patient does not have an advance directive. # GOALS OF CARE: + Code Status: Full Code + Continue current level of medical care with escalations as necessary. + OK for further re-hospitalizations. + OK for surgical interventions. + Return to [facility] when medically stable. # HOSPICE DISCUSSION: Briefly introduced the concept of hospice with focus on symptom management and comfort maximizing quality over quantity of life. Hospice philosophy was discussed today as an option of medical care moving forward. Benefits and limitations of hospice services were reviewed today. Goals do not align with hospice philosophy. Brenna # LEGAL AND REGULATORY ASPECTS OF CARE/DOCUMENTS: + Advance Directive: None in EMR. + POLST Form: Reviewed previous POLST form completed on 01/26/2023 which reflects attempt CPR and full treatment. # FOLLOW UP NEEDS: + Palliative medicine will continue to follow along and provide interdisciplinary support to patient and family while they remain inpatient. Will continue to reassess and provide assistance with complex medical decision making as necessary. Consultation involved highly complex medical decision-making for a patient living with advanced/life-limiting illness. Complex medical decision making specifically involved review, assessment, and management of supportive care symptom burden and medications as well as detailed advance care planning/goals of care discussion. Plan of care discussed with primary team, bedside RN, and the palliative interdisciplinary team. The total encounter time on the date of service was 120 minutes. This does not include time spent in separately billable services. This time includes the following provider-level activities: Before visit: comprehensive review of the electronic health record (EHR) including outside medical records available in Care Everywhere, personal review of relevant laboratory/imaging and other diagnostics, and collaboration with other clinicians. Dbrp-[id number] visit including history, physical examination, and discussion with corroborating historians as appropriate. After visit: documentation, communication with relevant family members, discussion with other clinicians on the patient's care team, and review of recommendations with other clinicians. It is recalled * Jeffery Red P.A.-C., M.S. - 02/24/2025 12:10 PM CDTAssociated Order(s): IP CONSULT TO GASTROENTEROLOGY Case discussed with Dr. Mcclure SUBJECTIVE CHIEF COMPLAINT / REASON FOR CONSULT Elevated LFT, abnormal cholangiogram HISTORY OF PRESENT ILLNESS Ren aRmirez is a 75 y.o. patient with comorbidities including MS, paraplegic, history of DVT for which he is anticoagulated on Eliquis, obesity, hyperlipidemia, coronary artery disease, diabetes mellitus type 2, recent cholecystitis for under went a percutaneous cholecystostomy tube. He also has large standing decubitus stage IV ulcer. Originally presented for change in mental status. Subsequent workup has been notable for metabolic encephalopathy and sepsis with bacteremia growing Gram-negative. He did have a cholangiogram completed that showed a patent cholecystostomy tube. Common bile duct appeared to contain sludge that was resulting in 90% stenosis however there was no intrahepatic biliary ductal dilation. He today reports no abdominal pain. Notes he believes he is doing okay. He has no acute concerns ornew symptoms today. Tolerating oral intake. Past Medical History Medical History[1] Home medications Current Outpatient Medications Medication Instructions acetaminophen (TYLENOL) 1,000 mg, oral, 3 times daily acetic acid 0.25 % irrigation (sterile) Apply to buttocks wounds topically as needed for wound care allopurinoL (ZYLOPRIM) 100 mg, Daily AntifungaL, clotrimazole, 1 % cream 1 Application, 2 times daily apixaban (ELIQUIS) 5 mg, 2 times daily atorvastatin (LIPITOR) 80 mg, oral, Daily at bedtime bacitracin 500 unit/gram ointment 1 Application, 2 times daily baclofen (LIORESAL) 10 mg, oral, 2 times daily BD PosiFlush Normal Saline 0.9 injection Use 10 mL via irrigation every day calcium carbonate (TUMS) 500 mg (200 mg calcium) chewable tablet 400 mg of calcium, oral, 2 times daily carbamide peroxide (Debrox) 6.5 % otic solution 5 drops, As needed cetirizine (ZYRTEC) 10 mg, Daily at bedtime cholecalciferol 25 mcg, oral, Daily diclofenac sodium (VOLTAREN) 2 g, topical, 2 times daily PRN ferrous sulfate tablet 325 mg, Every other day fluticasone propionate (Flonase) 50 mcg/actuation nasal spray 1 spray, 2 times daily furosemide (LASIX) 20 mg, oral, Daily furosemide (LASIX) 40 mg, Every morning latanoprost (XALATAN) 0.005 % ophthalmic solution 1 drop, Daily lisinopriL 40 mg, oral, Daily melatonin 5 mg, oral, Bedtime PRN metFORMIN XR (GLUCOPHAGE-XR) 1,000 mg, Daily with evening meal metoprolol succinate (TOPROL XL) 100 mg, oral, Daily, Do not crush or chew. NIFEdipine XL (PROCARDIA XL) 90 mg, oral, Daily nitroglycerin (NITROSTAT) 0.4 mg, Every 5 min PRN ondansetron (ZOFRAN) 4 mg, Every 6 hours PRN oxyCODONE (ROXICODONE) 5 mg, Every 6 hours PRN pantoprazole (PROTONIX) 40 mg, oral, 2 times daily before morning and evening meals polyethylene glycol (MIRALAX) 17 g, oral, Daily PRN, Dissolve each 17 g dose in 240 mLs (8 ounces) of beverage. potassium chloride 10 mEq ER capsule 10 mEq, oral, 2 times daily with meals saliva substitution (Biotene Dry Mouth Oral Rinse) mouthwash 1 Application, As needed senna 17.2 mg, Every morning sennosides-docusate sodium (SENOKOT-S) 8.6-50 mg per tablet 1 tablet, oral, 2 times daily PRN Last endoscopy EGD completed in 2021 noting for duodenal ulcer treated with cautery as well as noted to have reflux esophagitis. Family history Family History[2] Social history -former smoker OBJECTIVE PHYSICAL EXAMINATION Constitutional General: He is awake. He is not in acute distress. Appearance: He is not toxic-appearing. Pulmonary Effort: No respiratory distress. Abdominal Palpations: Abdomen is soft. Tenderness: There is no abdominal tenderness. There is no guarding or rebound. Comments: Cholecystostomy tube appears functional Neurological Mental Status: He is alert. Psychiatric Behavior: Behavior is cooperative. DIAGNOSTICS Labs: Lab Results Component Value Date WBC 6.8 02/24/2025 HGB 9.2 (L) 02/24/2025 HCT 30.2 (L) 02/24/2025 MCV 84.1 02/24/2025 PLT 222 02/24/2025 Lab Results Component Value Date ALT 131 (H) 02/24/2025 AST 112 (H) 02/24/2025 ALKPHOS 749 (H) 02/24/2025 BILITOT 0.7 02/24/2025 Lab Results Component Value Date NA 143 02/24/2025 CL 109 (H) 02/24/2025 CREATININE 1.02 02/24/2025 EGFR 77 02/24/2025 BUN 25 (H) 02/24/2025 ANIONGAP 12 02/24/2025 GLUCOSE 107 02/24/2025 CALCIUM 9.5 02/24/2025 IR Percutaneous Cholecystostomy Tube Check Result Date: 02/22/2025 Impression: 1. Patent cholecystostomy tube. 2. Intermittent cystic duct obstruction; cystic duct isopen on today's exam. 3. Common bile duct sludge without causing hepatic ductal dilatation. RAD US Joint Aspiration and or Injection Right Result Date: 02/22/2025 Impression: 1. US-guided right wrist joint aspiration. DX Wrist Right 3+ Views Result Date: 02/22/2025 Impression: Spotty demineralization. No apparent fractures. Slight ulna minus variance. Chondrocalcinosis although to a much lesser degree than in 2017. DX Knee Right 4+ Views Result Date: 02/22/2025 Impression: Demineralization. No acute fracture. Moderate tricompartmental arthritis. Tiny joint effusion. Chondrocalcinosis. Small suprapatellar spur. IR Percutaneous Cholecystostomy Tube Exchange Result Date: 02/05/2025 Impression: Routine exchange of the cholecystostomy catheter. Cystic duct is patent on today's exam. ASSESSMENT / PLAN Ren is a 75 y.o. male with numerous comorbidities who presenting with concerns of sepsis and bacteremia. Consulted GI given that his cholecystostomy tube check completed on the 22 of February was concerning for sludge and 90% stenosis superior to the cystic duct. Also noted to have elevated liver enzymes. # Sepsis # Bacteremia - gram negative aden # C chronic cholecystitis status post cholecystostomy tube # Elevated liver enzymes - cholestatic pattern Results from last 7 days Lab Units 02/24/25 0544 02/23/25 0617 02/22/25 1513 ALK PHOS P U/L 749* 796* 995* BILIRUBIN TOTAL P mg/dL 0.7 1.3* 2.2* BILIRUBIN DIRECT P mg/dL 0.5* 1.0* 1.7* PROTEIN TOTAL P g/dL 5.9* 5.4* 6.0* ALBUMIN P g/dL 2.8* 2.6* 2.8* ALT P U/L 131* 150* 184* AST P U/L 112* 163* 214* - Liver enzymes are improving. - In regards to the stenosis and sludge concern, will discuss further with IR as wonder if this is more mobile sludge which could maybe decompress with cholecystomy tube as opposed to this being truestricture - patient is not a great anesthesia candidate - no evidence of acute cholangitis currently. Time spent with patient was > 50 minutes, over half of the total time spent in counseling and coordination of care including review of notes, labs, imaging, discussion of care and documentation. [1] Past Medical History: Diagnosis Date Apnea Sleep Obstructive Arthritis Rheumatoid (HCC) Coronary Artery Disease (Unspecified) Glaucoma Heart Failure NOS Hyperlipidemia Hypertension NOS Multiple Sclerosis (HCC) Non-ST Elevation Myocardial Infarction (HCC) 05/26/2018 Open Reduction Internal Fixation Hip Status Post 12/22/2022 Other Specified Health Status 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) 03/24/2017 Sleep Apnea [2] Family History Problem Relation Name Age of Onset Hypertension Father father Glaucoma Father father Cancer Father father Coronary artery disease Father father Hyperlipidemia Father father Sleep apnea Father father Pulmonary embolism Neg Hx DVT - Deep vein thrombosis Neg Hx Miscarriages / Stillbirths Neg Hx Cosigned by Sharla Mcclure M.B.B.S. at 02/24/2025 6:17 PM CDT Associated attestation - Sharla Mcclure M.B.B.S. - 02/24/2025 6:17 PM CDT I have personally seen and examined the patient and performed the substantive portion of the medical decision making of this shared/split visit. The plan of care was discussed with the patient and the admitting team and all questions and concerns were addressed. I agree with the assessment and plan as written by Jeffery Red P.A.-C., M.S. . MS, paraplegic, history of DVT for which he is anticoagulated on Eliquis, obesity, hyperlipidemia, coronary artery disease, diabetes mellitus type 2, stage IV decubitus ulcers with osteomyelitis. Presented with the acute cholecystitis in July 2024 with a concomitant bilateral pulmonary embolism. Due to his acute pulmonary embolism and need for anticoagulation surgery was deferred and a percutaneous cholecystostomy tube was placed. Interval cholecystectomy has been deferred given patient's underlying health conditions, ongoing anticoagulation and need for cardiology evaluation. He presented on 02/22/2025 with altered mental status, leukocytosis, right upper quadrant pain and elevated LFTs. He went a cholecystostomy tube check which demonstrated: Patent cholecystostomy tube located within a decompressed gallbladder. Multiple filling defects are present within the gallbladder. Cystic duct is patent. Common bile duct contains 90% stenosis at the superior portion located superior to the cystic duct insertion, likely secondary to sludge. However, no intrahepatic biliary ductal dilatation is noted. Contrast readily flows into the duodenum. Blood cultures are negative. Patient's LFTs have since downtrended and his abdominal pain has resolved. I personally reviewed the cholangiogram images. Continued contrast injection, there was was resolution of the initially viewed area of stenosis and full opacification of the intrahepatic ducts. This suggests that there is no structural stricture present and the viewed stenosis is likely due to mobile sludge. In the setting of mobile sludge,and a patent cystic duct with a percutaneous cholecystostomy tube to decompress the bile duct and improving LFTs, there is no indication for an ERCP at this time. If he goes on to develop choledocholithiasis then ERCP would be indicated. If in the future he remains a non-surgical candidate but is otherwise optimized for anesthesia and able to come off anticoagulation, ERCP for transpapillary gallbladder drainage can be considered. - Continue to trend LFTS - Antibiotics per primary team . #Chronic cholecystitis # Elevated LFTs Thank you for involving us in the care of your patient. Please reach out with any questions or clarifications. We will now sign off. Sharla Worley [facility] of Gastroenterology and Hepatology [facility] * DuniaPaty R.N., [place], [place] - 02/24/2025 11:49 AM CDTAssociated Order(s): IP CONSULT TO WOUND CARE Images from the original note were not included. REASON FOR CONSULT: Stage 4 Pressure Ulcer Sacrum: Present Upon Admission Stage 4 Pressure Ulcer Left Ischial Tuberosity: Present Upon Admission Deep Tissue Pressure Injury Right Buttocks: Present Upon Admission Friction Injury Coccyx: Present Upon Admission HISTORY OF PRESENT ILLNESS: 75-year-old male with history of multiple sclerosis and paraplegia with neurogenic bowel and bladder with chronic decubitus ulcers. Also with history of pulmonary emboli on Eliquis. He presented withaltered mental status of unclear etiology. Per general surgery team Wound Care service was asked toevaluate wounds and place a wound vac on patient. WOUND ASSESSMENT: Wound #1 Type: Pressure Injury [facility] Pressure Injury Staging: Stage 4 Wound Location: Sacrum Wound Orientation: Mid Wound Tunnel/Induration: Length 3.5 cm, Width 4.3 cm, Depth 1.5 cm, and Undermining 2.5 cm at 12-5 o'clock . Wound Bed Tissue: Red, Clean, and Granulation tissue 100% Isatu-Wound Skin: Blanchable erythema, Denuded, Fragile, and Red Wound Drainage Amount and Appearance: Serosanguineous Wound #2 Type: Pressure Injury [facility] Pressure Injury Staging: Stage 4 Wound Location: Ischial Tuberosity Wound Orientation: Left Wound Tunnel/Induration: Length 2.5 cm, Width 9 cm, Depth 4 cm, and Undermining 4 cm at 12-5 o'clock . Wound Bed Tissue: Red, Yellow, Granulation 75% 25% Slough Isatu-Wound Skin: Blanchable erythema, Denuded, Fragile, and Red Wound Drainage Amount and Appearance: Serosanguineous Wound #3 Type: Pressure Injury [facility] Pressure Injury Staging: Deep Tissue Wound Location: Buttock Wound Orientation: Right Wound Tunnel/Induration: Length 6 cm, Width 2 cm Wound Bed Tissue: Closed Isatu-Wound Skin: Blanchable erythema, Denuded, Fragile, and Red Wound Drainage Amount and Appearance: None Wound #4 Type: Friction Injury Wound Location: Coccyx Wound Orientation: Mid Wound Bed Tissue: Red Isatu-Wound Skin: Blanchable erythema, Denuded, Fragile, and Red Wound Drainage Amount and Appearance: Serosanguineous PLAN: BUTTOCK WOUNDS: 3 X WEEKLY Wound VAC dressing change 3x weekly 1. Pre-medicate with oral pain medicine 30-60 minutes prior to dressing change. 2. Turn VAC off prior to dressing change. 3. Remove drape and foam inside the wound. May moisten with saline as needed to prevent trauma. 4. Cleanse wounds with Vashe wound cleanser moistened gauze. Allow Vashe moistened gauze to sit in wounds for 5-10 minutes while you prepare rest of dressings. 5. Cleanse skin around wound with Vashe wound cleanser. Then dry. 6. Measure wounds (Sacrum & Left IT) and gently probe areas of undermining and tunneling to include in measurements. 7. Apply black or Silver foam into each wound bed making sure to gently pack into undermined and tunnel areas. 8. Pre-treat skin around the wound with Stoma Powder. Rub in well and brush off excess. If she getsa rash, may use Miconazole powder instead. 9. Dab over powder with No Sting Barrier wipe or wound. Air dry. 10. Window pane drape around the wound. Apply an ostomy barrier ring over the window pane around wound to help seal. 11. Cover wounds with drape. 12. Drape from wound area up to right hip for bridge to be placed. 13. Cut a small dime sized hole directly over each wound area. Over hole you just cut place a bridge piece of foam from IT wound up to coccyx wound. From coccyx wound place another longer piece of bridge up to the hip. 13. Over bridge piece on hip cut a dime sized council in the drape. Place Sensitrack. Place more drape over Sensitrack head. 14. Set to -125 mmHg low continuous negative pressure. 15. Change canister every 7 days or when full, whichever is SOONER. Change Y connector weekly on Monday. Additional VAC orders: -If there is an air leak - reinforce V.A.C. Dressing with V.A.C. Drape or Tegaderm as needed until fixed. -If wound VAC fails or pressure is at 0 mmHg for >2 hours, remove the VAC dressing, pack with Vashe moistened gauze, and cover with ABD pad. Replace VAC dressing once able. IF VAC FAILS OR IS OFF FOR 2 OR MORE HOURS, FOLLOW BELOW ORDERS UNTIL NEW VAC CAN BE PLACED: 1. Remove old dressings. Utilize saline to aid removal and prevent sticking. 2. Cleanse wound bases then periwound skin with Vashe wound cleanser 3. Pat dry 4. Moisten several 4x4 gauze pads with Vashe (wring out excess moisture so it is not dripping wet) apply as first layer in wound. 5. Gently pack DRY 4 Kerlix (roll gauze) into open wound beds. Do not over pack wound. 6. Place overlying dry gauze, ABD pad OR Optilock super absorbant dressing. 7. Secure with Medipore tape OFFLOADING : 1. [employer] 3 low air loss mattress. Ensure it is plugged in and operational at all times. Set firmness to patient comfort level. Keep in immersion setting. 2. Head of bed no> 30 , except with meals. 3. Turn every 2 hours. 4. Limit time in chair to 1-2 hour increments. Utilize chair cushion. Be sure the head of the chairis reclined as far back as possible to limit sliding down in chair. BILATERAL HEELS: 3 X WEEKLY Cleanse with Vashe wound cleanser Pat skin dry Apply a 2 x 2 gauze and a 4 x 4 Mepilex OFFLOADING: Please be sure bilateral ankles/heels are offloaded in Prevalon (blue) boots at all times unless ambulating in room. Hilton wedges need to be on lateral side to keep anatomic position of ankle. Please contact [facility] RNs if you have any question or concerns regarding wound care. Paty Duque R.N., [place] at [phone] Martine Deluna R.N., WEI at [phone] * Carolyn Blackburn, [facility]-[employer] - 02/23/2025 9:49 AM CDT Consults Speech Pathology Clinical Swallow Evaluation - Inpatient SUBJECTIVE Patient: Ren Ramirez [facility] [id number] Referring/Attending Provider: Nelson Chand M.D. Medical Diagnosis: Encephalopathy Metabolic [G93.41] Payor: MEDICA / Plan: MEDICA [employer] / Product Type: HMO / Reason for [employer] Referral: dysphasia Onset Date: 02/22/2025 Past Medical / Surgical History: Problem List[1] Medical History[2] Surgical History[3] History of Present Illness: Ren Ramirez is a 75 y.o. male who was admitted to [facility] in [place] on 02/22/2025 due to Encephalopathy Metabolic [G93.41] Subjective Comments: alert & cooperative Active Diet Orders: Current Diet None Baseline Pain General Family/Caregiver Present: No Arousal/Alertness: Delayed responses to stimuli Hearing: Within Normal Limits (WNL) Behavior: Alert, Cooperative OBJECTIVE Oral / Motor Dentition: Adequate Facial Symmetry: Within Functional Limits (WFL) Dentition: Adequate Facial Symmetry: Within Functional Limits (WFL) Consistencies Assessed: Level 0 Thin Presentation: Straw, Cup Number of Trials Given: 2 Amount Given: 1 oz Oral: Within Functional Limits (WFL) Pharyngeal: Wet vocal quality Level 2 Mildly Thick Presentation: Straw, Cup Number of Trials Given: 2 Amount Given: 1 oz Oral: Within Functional Limits (WFL) Pharyngeal: Within Functional Limits (WFL) Level 4 Puree Presentation: Spoon Number of Trials Given: 1 Amount Given: 1 T Oral: Within Functional Limits (WFL) Pharyngeal: Within Functional Limits (WFL) Level 7 Regular Presentation: Self Fed Number of Trials Given: 1 Amount Given: 1 teaspoon size bite Oral: Within Functional Limits (WFL) Pharyngeal: Within Functional Limits (WFL) POSITIONING & CONSISTENCIES: Patient was seated in bed at a 90 degree angle. Patient was given thin liquid via straw and cup, mildly thick liquid via straw and cup, pudding via spoon and cuco cracker. ORAL STAGE: Within functional limits. Anticipation was appropriate. Labial seal adequate w/ no anterior spillage observed. Manipulation and anterior-posterior bolus propulsion appeared adequate. Timeliness of bolus transit was adequate. Mastication was functional. No significant oral residue remained after the swallows. PHARYNGEAL STAGE: Impaired. Overt clinical signs and symptoms of aspiration with thin liquid consistency. Laryngeal elevation was present upon palpation. RISK OF ASPIRATION: mild IMPRESSIONS: From a clinical perspective, patient presents with oropharyngeal swallow function to be within functional limits. Recommend diet of soft and bite size textures and mildly thick liquids. Will continueto follow to ensure tolerance of recommended diet. Primary service and RN made aware of any diet changes and/or recommendations. PLAN/RECOMMENDATIONS Dysphagia Treatment Plan: Diet tolerance monitoring Diet Recommendations - Solids: IDDSI Level 6 Soft & Bite-Sized Diet Recommendations - Liquids: IDDSI Level 2 Mildly Thick Compensatory Swallowing Strategies: Small bites/sips, Eat/feed slowly, Swallow 2 times per bite/sip Positioning Recommendations: Upright as possible for all oral intake Please refer to OT and/or PT notes for potential additions to discharge recommendations. EDUCATION: Educated patient and caregivers regarding impressions, recommendations, and DOPE AND FABRIC WORKER plan of care. GOALS Dysphagia Jail Goal Dysphagia Jail Goal: Patient will tolerate a soft and bite size diet with mildly thick liquidswithout signs and symptoms of aspiration to maintain optimal nutrition with the least restrictive diet. Dysphagia Short Term Goal 1 Dysphagia Short Term Goal 1: Patient will tolerate a soft and bite size diet with mildly thick liquids without signs and symptoms of aspiration. Time Spent with Patient 30 Minutes Electronically signed by: Carolyn Blackburn CCC-DOPE AND FABRIC WORKER 02/23/25 9:49 AM CDT [1] Patient Active Problem List Diagnosis Hypertension Essential Primary Multiple Sclerosis (HCC) Hypokalemia Neuromuscular Dysfunction Of Bladder Unspecified Neurogenic Bowel Hypoalbuminemia Atherosclerotic Heart Disease Of [place] Coronary Artery Without Angina Pectoris Paraparesis Spastic ([facility]) Abdominal Pain Hematemesis Hematochezia Nausea COVID-19 Infection Apnea Sleep Obstructive Lymphedema Weakness General Body Mass Index 33.0 To 33.9 Adult Acute Cystitis With Hematuria Fracture Femoral Condyle Closed Initial Right (HCC) Fracture Hip Closed Initial Right ([facility]) Osteoporosis Hip With Pathological Fracture Initial Right ([facility]) Open Reduction Internal Fixation Hip Status Post Paraplegia ([facility]) Embolus Pulmonary ([facility]) Acute Embolism And Thrombosis Of Other Specified Deep Vein Of Lower Extremity Bilateral (HCC) Body Mass Index 34.0 To 34.9 Adult Encephalopathy Metabolic [2] Past Medical History: Diagnosis Date Apnea Sleep Obstructive Arthritis Rheumatoid (HCC) Coronary Artery Disease (Unspecified) Glaucoma Heart Failure NOS Hyperlipidemia Hypertension NOS Multiple Sclerosis (HCC) Non-ST Elevation Myocardial Infarction (HCC) 05/26/2018 Open Reduction Internal Fixation Hip Status Post 12/22/2022 Other Specified Health Status 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) 03/24/2017 Sleep Apnea [3] Past Surgical History: Procedure Laterality Date APPLICATION [...] Wound-wound vac placement Notes: possible vac placement * Rolly Field M.D. - 02/22/2025 11:04 AM CDTAssociated Order(s): Infectious Diseases consult (hospital) SUBJECTIVE Infectious Diseases consult (hospital) Referring Provider: Nelson Chand M.D. Reason for Consult: being requested to be evaluated by infectious diseases for Sepsis. History of Present Illness Patient is a 75 y.o. 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 REVIEW OF SYSTEMS Pertinent items are noted in HPI; all other review of systems was negative. OBJECTIVE Admission Weight: 107 kg Current Weight: 107 kg PAST MEDICAL AND SURGICAL HISTORY FAMILY HISTORY Family History[1] SOCIAL HISTORY Social History Socioeconomic History Marital status: Spouse name: Not on file Number of children: Not on file Years of education: Not on file Highest education level: 12th grade Occupational History Not on file Tobacco Use Smoking status: Former Current packs/day: 0.00 Types: Cigarettes Quit date: 1977 Years since quittin.6 Passive exposure: Never Smokeless tobacco: Not on [...] file Social Drivers of Health Food Insecurity: Patient Unable To Answer (02/22/2025) Hunger Vital Sign Worried About Running Out of Food in the Last Year: Patient unable to answer Ran Out of Food in the Last Year: Patient unable to answer Transportation Needs: Patient Unable To Answer (02/22/2025) PRAPARE - Transportation Lack of Transportation (Medical): Patient unable to answer Lack of Transportation (Non-Medical): Patient unable to answer Intimate Partner Violence: Patient Unable To Answer (02/22/2025) Humiliation, Afraid, Rape, and Kick questionnaire Fear of Current or Ex-Partner: Patient unable to answer Emotionally Abused: Patient unable to answer Physically Abused: Patient unable to answer Sexually Abused: Patient unable to answer Housing Stability: Patient Unable To Answer (02/22/2025) Housing Stability Housing: Living Situation: Patient unable to answer ALLERGIES Allergies[2] VITAL SIGNS Temperature: [36.3 ??C-36.6 ??C] 36.5 ??C Heart Rate: [107] 107 Resp Rate: [18-21] 21 Blood Pressure: (124-145)/(48-56) 145/50 SpO2: [90 %-100 %] 100 % Flow Rate (L/min): [0 L/min] 0 L/min Pulse Rate: [104-113] 109 PHYSICAL EXAM General appearance: alert Head: atraumatic, normocephalic, without obvious abnormality Eyes: negative Abdomen: Cholecystostomy tube noted Extremities: extremities normal, warm and well perfused Skin: Skin color, texture, turgor normal. No rashes or lesions. Neurologic: Alert but not oriented to time or place DIAGNOSTICS I have reviewed diagnostics. Studies of note include: ECG Demonstrating QTC Interval Date Value Ref Range Status 02/22/2025 403 ms Final Creatinine with Creatinine Clearance: Creatinine Date Value Ref Range Status 02/22/2025 1.86 (H) 0.74 - 1.35 mg/dL Final Creatinine, Elana Date Value Ref Range Status 12/29/2016 0.7 0.7 - 1.2 MG/DL Final eGFR Non-Black/ Date Value Ref Range Status 08/18/2017 >60 >60 ML/MIN/BSA Final eGFR-Non Black/ Date Value Ref Range Status 08/13/2021 62 >=60 mL/min/BSA Final Comment: ----ADDITIONAL INFORMATION---- Estimated GFR calculated using the 2008 CKD_EPI creatinine equation. Estimated GFR (eGFR) Date Value Ref Range Status 02/22/2025 37 (L) >=60 mL/min/BSA Final Comment: Estimated GFR calculated using the 2020 CKD_EPI creatinine equation. WBC w/diff: Leukocytes Date Value Ref Range Status 02/22/2025 9.2 3.4 - 9.6 x10(9)/L Final EXT Leukocytes Date Value Ref Range Status 02/18/2025 11.7 (H) 4.5 - 11.0 thou/cu mm Final Lymphocytes Date Value Ref Range Status 02/22/2025 0.71 (L) 0.95 - 3.07 x10(9)/L Final Lymphocytes % Date Value Ref Range Status 08/16/2024 18 18 - 42 % Final EXT Lymphocytes % Date Value Ref Range Status 02/18/2025 18 % Final EXT Lymphocytes Date Value Ref Range Status 02/04/2025 11.6 % Final 02/04/2025 1.5 0.9 - 2.9 thou/cu mm Final EXT Absolute Lymphocytes Date Value Ref Range Status 02/18/2025 2.1 0.9 - 2.9 thou/cu mm Final Manual Absolute Neutrophil Count Date Value Ref Range Status 08/16/2024 6.50 (H) 1.56 - 6.45 x10(9)/L Final Comment: ----ADDITIONAL INFORMATION---- The manual absolute neutrophil count is derived from a manual differential count and therefore is not exactly comparable to the automated absolute neutrophil count. EXT Neutrophils Date Value Ref Range Status 02/04/2025 10.6 (H) 1.7 - 7.0 thou/cu mm Final EXT Manual Absolute Neutrophil Count Date Value Ref Range Status 02/18/2025 8.7 (H) 1.7 - 7.0 thou/cu mm Final Neutrophils Date Value Ref Range Status 02/22/2025 7.78 (H) 1.56 - 6.45 x10(9)/L Final Eosinophils Date Value Ref Range Status 02/22/2025 0.10 0.03 - 0.48 x10(9)/L Final 08/16/2024 3 1 - 3 % Final EXT Eosinophils % Date Value Ref Range Status 02/04/2025 1.3 % Final EXT Eosinophils Date Value Ref Range Status 02/18/2025 0 % Final 02/04/2025 0.2 <0.5 thou/cu mm Final EXT Absolute Eosinophil Date Value Ref Range Status 02/18/2025 0 <0.5 thou/cu mm Final EXT Monocytes % Date Value Ref Range Status 02/04/2025 5.8 % Final EXT Monocytes Date Value Ref Range Status 02/04/2025 0.8 <0.9 thou/cu mm Final Monocytes Date Value Ref Range Status 02/22/2025 0.54 0.26 - 0.81 x10(9)/L Final Basophils Date Value Ref Range Status 02/22/2025 <0.03 0.01 - 0.08 x10(9)/L Final Microbiology Results (last 72 hours) Procedure Component Value - Date/Time Bacterial Culture, Aerobic + Susceptibility, Urine [[id number]] Collected: 02/22/25501 Lab Status: In process Specimen: Urine, Indwelling Catheter Updated: 02/22/25 0511 SARS CoV-2, Influenza A/B, RSV, PCR Symptomatic [[id number]] Collected: 02/22/25 050 Lab Status: Final result Specimen: Swab from Nasopharynx Updated: 02/22/25 0640 Influenza A, PCR Undetected Comment: Influenza A viral RNA absent. Influenza B, PCR Undetected Comment: Influenza B viral RNA absent. Respiratory Syncytial Virus, PCR Undetected Comment: RSV RNA absent. GDLM-Arcfriontan-0, PCR Undetected Comment: SARS-CoV-2 RNA absent. ----ADDITIONAL INFORMATION---- This RT-PCR test using the Xpert Xpress SARS-CoV-2/Flu/RSV assay ([employer] performed on the [employer] systems has received Emergency Use Authorization (EUA) by the U.S. Food and Drug Administration. Performance characteristics were verified by [facility] in a manner consistent with CLIA requirements. Fact sheets for this Emergency Use Authorization (EUA) assay can be found at the following links: For Healthcare Providers: https://www.fda.gov/media/421799/download For Patients: https://www.fda.gov/media/932769/download Specimen Source Swab, Nasopharynx Bacteria / Bautista Culture, Blood #2 [[id number]] Collected: 02/22/25434 Lab Status: In process Specimen: Blood, Peripheral Draw Updated: 02/22/25448 Narrative: Specimen Information: Specimen ID: [id number] Specimen Source: Blood, Peripheral Draw Specimen Comment: Specimen Source Site: Blood Specimen Collection Start Date: 02/22/2025 4:35 AM Specimen Received Date: 02/22/2025 4:48 AM Specimen ID: [id number] Specimen Source: Blood, Peripheral Draw Specimen Comment: Specimen Source Site: Blood Specimen Collection Start Date: 02/22/2025 4:35 AM Specimen Received Date: 02/22/2025 4:48 AM Specimen ID: [id number] Specimen Source: Blood, Peripheral Draw Specimen Comment: Specimen Source Site: Blood Specimen Collection Start Date: 02/22/2025 4:35 AM Specimen Received Date: 02/22/2025 4:48 AM Bacteria / Bautista Culture, Blood #1 [[id number]] Collected: 02/22/25427 Lab Status: In process Specimen: Blood, Peripheral Draw Updated: 02/22/25448 Narrative: Specimen Information: Specimen ID: [id number] Specimen Source: Blood, Peripheral Draw Specimen Comment: Specimen Source Site: Blood Specimen Collection Start Date: 02/22/2025 4:28 AM Specimen Received Date: 02/22/2025 4:48 AM Specimen ID: [id number] Specimen Source: Blood, Peripheral Draw Specimen Comment: Specimen Source Site: Blood Specimen Collection Start Date: 02/22/2025 4:28 AM Specimen Received Date: 02/22/2025 4:48 AM Specimen ID: [id number] Specimen Source: Blood, Peripheral Draw Specimen Comment: Specimen Source Site: Blood Specimen Collection Start Date: 02/22/2025 4:28 AM Specimen Received Date: 02/22/2025 4:48 AM Diagnostics ASSESSMENT / PLAN #1 Altered mental status #2 Chronic cholecystitis status post cholecystostomy tube last changed in 2024. Placed blair 7 day course of Bactrim and Augmentin. 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 Neurogenic bowel and bladder RECOMMENDATIONS 75-year-old gentleman with history of MS and chronic decubitus ulcer and associated left ischial osteomyelitis, chronic cholecystitis with cholecystostomy tube recently changed in January 2025 who was admitted with altered mental status Are percutaneous cholecystostomy tube check pending blood and urine cultures are pending. Previous cultures reviewed can continue on meropenem 500 mg IV q.6 while awaiting blood and urine culture results. Will follow along Rolly Field M.D. [1] Family History Problem Relation Name Age of Onset Hypertension Father father Glaucoma Father father Cancer Father father Coronary artery disease Father father Hyperlipidemia Father father Sleep apnea Father father Pulmonary embolism Neg Hx DVT - Deep vein thrombosis Neg Hx Miscarriages / Stillbirths Neg Hx [2] Allergies Allergen Reactions Haemophilus Influenzae Other (see comments) Vancomycin Vancomycin Infusion Reaction Red Man Syndrome * Elder Barrientos M.D. - 02/22/2025 9:48 AM CDTAssociated Order(s): IP CONSULT TO GENERAL SURGERY SUBJECTIVE CHIEF COMPLAINT / REASON FOR VISIT Ren Ramirez is a 75 y.o. male presenting in referral from Elder Matthew M.D. for consultation in the evaluation of No chief complaint on file.. HISTORY OF PRESENT ILLNESS Patient is a 75-year-old male with history of paraplegia secondary to multiple sclerosis, bed-boundwith chronic decubitus wounds, neurogenic bowel and bladder. Also history of DVT and PE on Eliquis,type 2 diabetes, obesity, hypertension, hyperlipidemia, and coronary artery disease. Earlier this year had a percutaneous cholecystostomy tube placed for acalculous cholecystitis. More recently did have a tube change which confirmed the cystic duct was patent. Presenting to an outside emergency department with altered mental status and transferred to [facility] for further workup. Patient was foundto a normal white blood cell count, LFTs were elevated with total bilirubin 1.5, mildly elevated ALT and AST, and alkaline phosphatase to over a 1000. Urinalysis had likely infection, however has a chronic indwelling catheter (unclear if any bacteria are also chronic). General surgery was consultedgiven the concern that the cholecystostomy tube not be functioning appropriately given the elevatedLFTs. Also consulted for recommendations on the sacral decubitus ulcers. The patient remains altered this morning unable to reliably answer questions. Indicates everything seems to hurt. The following portions of the patient's history were reviewed and updated as appropriate: allergies, current medications, family history, medical history, social history, surgical history, and problem list. REVIEW OF SYSTEMS REVIEW OF SYSTEMS OBJECTIVE BP (!) 145/50 Pulse 109 Temp 36.5 ??C (Temporal) Resp 21 Ht 182.9 cm Wt 107 kg SpO2 100% BMI 31.84 kg/m?? PHYSICAL EXAM Physical Exam General: Awake and alert no acute distress answering questions appropriately Abdomen: Soft. Seems to have mild discomfort with palpation anywhere on his body. Cholecystostomy tube appears in place with relatively low output in the bag, drainage tube appears bile tinged. Wound: Unable to position patient to clearly visualize with the time of my visit, over photos reviewed as well as the CT scan from yesterday. Has 1 wound towards the upper buttocks in the left which appears well granulated, based on notes this is likely the 1 that had a wound VAC on it. An additional wound along the left gluteal cleft which extends deep all the way to the ischial tuberosity with previously diagnosed with osteomyelitis. Labs: Alkaline phosphatase 1008, ALT 195, AST 292, total bilirubin 1.5. Normal white blood cell count CT scan: From yesterday at outside hospital. Shows cholecystostomy tube appropriate position with adecompressed gallbladder. Does note some thickening around the gallbladder. Also notes some soft tissue defect near the left ischial tuberosity, no adjacent fluid collections ASSESSMENT / PLAN #1 Encephalopathy Metabolic 75-year-old male with history of multiple sclerosis with paraplegia with neurogenic bowel and bladder, chronic sacral wounds, acute bilateral pulmonary emboli on Eliquis. Also diagnosed with acalculous cholecystitis in July 2024 treated with a percutaneous cholecystostomy tube. Had a routine tube change about 2 weeks ago, cystic duct was noted to be patent at that time. Prior to that change the tube had become dislodged and he developed purulent cholecystitis. Presenting with altered mental status, alkaline phosphatase is elevated and question was raised of the cholecystostomy tube is still functioning. Based on CT scan yesterday, I do think it is in the appropriate position in the fact that the gallbladder is decompressed he is a good sign that the tube was either working or the cystic duct is open and able to decompress the gallbladder. Will discuss further with IR if it would be beneficial to study the drain and assess the cystic and CBD. With the gallbladder decompressed I don't think there is cholecystitis but I also do not know why the alkaline phosphatase is so elevated (?Early cholangitis but labs and exam not completely consistent with that). Can consider gastroenterology evaluation. Appears his sacral wounds are similar to what we have previously documented. It sounds like he has been using a wound VAC, unclear if it is for both of the wounds or just 1 of them. On chart review, does sound like he was diagnosed with osteomyelitis in the left ischium based on MRI. Okay to continue with moist to dry saline packing into the wounds and cover with dry gauze, ABD and tape. Can change daily or more if needed for drainage. We will plan to have wound care team evaluate on Monday forpotential wound VAC replacement which would likely be easier to manage in the outpatient setting when he would be ready for discharge. No plans for any surgical debridement. Electronically signed by: Elder Barrientos M.D. 02/22/25 10:07 AM CDT * Britney Holt L.G.S.W. - 02/22/2025 9:09 AM CDTAssociated Order(s): IP CONSULT TO CARE MANAGEMENT; IP CONSULT TO CARE MANAGEMENT SUBJECTIVE Patient is a 75 year old male admitted due to Encephalopathy Metabolic [G93.41]. Care Management has been consulted for Early Screen Discharge and Discharge Planning. A psychosocial assessment of thepatient was completed on 08/09/24 by DEANGELO Damon. OBJECTIVE Problem List[1] ASSESSMENT / PLAN ASSESSMENT Not assessed. Patient is noted to be disorientated to person, place, and time. INTERVENTIONS This typewriter assembly and parts inspector completed a chart review. DEANGELO Damon completed a psychosocial assessment and baseline assessment of the patient on 08/09/24. [facility]'s [facility]. The patient's baseline assessment at that time was that the patient is a total assist with ceiling lift, and is dependent in activities of daily living. The patient helps roll self back and forth in bed when needed. He has a greco catheter and utilizes an electric wheelchair. The facility manages the patient's medications and provides the patient with meals. This typewriter assembly and parts inspector has sent a reconnection referral to [facility]. This typewriter assembly and parts inspector anticipates that an updated baseline assessment from this facility would be best obtained on Monday if needed. The patient has a [facility] [place], which would indicate that the patient should have a medical assistance covered bed hold in place. PLAN This typewriter assembly and parts inspector anticipates that the [facility]. Social Work will continue to follow and assist as needed or requested. Cesar Parker 02/22/25 [1] Patient Active Problem List Diagnosis Hypertension Essential Primary Multiple Sclerosis (HCC) Hypokalemia Neuromuscular Dysfunction Of Bladder Unspecified Neurogenic Bowel Hypoalbuminemia Atherosclerotic Heart Disease Of [place] Coronary Artery Without Angina Pectoris Paraparesis Spastic [...] Status Post Paraplegia (HCC) Embolus Pulmonary (HCC) Acute Embolism And Thrombosis Of Other Specified Deep Vein Of Lower Extremity Bilateral (HCC) Body Mass Index 34.0 To 34.9 Adult Encephalopathy Metabolic * Corazon Garvin RDN, LD - 02/22/2025 8:56 AM CDTAssociated Order(s): Dietitian Consult (Hospital) Dietitian Consult (Hospital) Referring Provider: Practiceadvisory, Automatedrequest Clinical Note Types: Initial Assessment/Consult NUTRITION VISIT REASON: MST 103 and unstageable pressure ulcer NUTRITION ASSESSMENT Admitting Diagnosis: AMS Past Medical History: has a past medical history of Apnea Sleep Obstructive, Arthritis Rheumatoid (HCC), Coronary Artery Disease (Unspecified), Glaucoma, Heart Failure NOS, Hyperlipidemia, Hypertension NOS, Multiple Sclerosis (HCC), Non-ST Elevation Myocardial Infarction (HCC), Open Reduction Internal Fixation Hip Status Post, Other Specified Health Status, Pressure Injury (Ulcer) Of Sacral Region Stage 4 ([facility]), and Sleep Apnea. Social History: from [facility] Food and Nutrition Related History Previous Diet: Pt recently seen 2wks ago by [facility]. Appetite noted to be poor at that time due to tastechanges and not liking food at his facility (from [facility]). Pt admitted in with [facility] was agitated this morning yelling and hitting staff. Pt remains NPO at this time. Pt with stageIV sacral decubitus ulcer with ischial ostemomyelitis. Pt with h/o MS and paraplegia. Plastic surgery consult previously in place. Pt does wear wound vac to his left buttock. Pt remains NPO at this time but has been agreeable to premier protein in the past. Currently K is 5.8 and glucose is 157. Food Allergies: none Weight Change History: Pt with a 9% weight loss in 5 months and 7% in 3 months. Weight last # of Episodes: Wt Readings from Last 15 Encounters: 02/22/25 107 kg 11/12/24 115 kg 11/05/24 114 kg 09/15/24 117 kg 09/02/24 117 kg 08/16/24 110 kg 01/18/23 114 kg 12/19/22 112 kg 11/14/22 116 kg 11/12/22 119 kg 10/19/22 121 kg 10/05/22 121 kg 08/12/21 104 kg 07/04/18 108 kg 05/31/18 106 kg Skin Integrity: stage IV sacral decubitus ulcer Non-severe (moderate) Malnutrition (02/22/25) The patient does meet the ASPEN Criteria of malnutrition based on: Energy Intake: Less than 75% of estimated energy requirement for greater than or equal to 7 days Interpretation of Weight Loss: greater than 7.5% 3 months Body Fat: Normal Muscle Mass: Normal Fluid Accumulation: Absent Reduced Pasting Inspector Strength: Not applicable This is in the context of Acute Illness or Injury. PERTINENT LABS: Last 3 results Lab Units 02/22/25 0428 SODIUM P mmol/L 136 POTASSIUM P mmol/L 5.8* CHLORIDE P mmol/L 104 BUN P mg/dL 48* CREATININE mg/dL 1.98* CALCIUM P mg/dL 9.6 Lab Results Component Value Date GLUCOSEPOC 137 02/22/2025 GLUCOSEPOC 148 (H) 02/22/2025 ANTHROPOMETRICS Height: 182.9 cm Admission Weight: 107 kg Weight: 107 kg BMI (Calculated): 31.8 kg/m?? [place] Body Weight (Calculated) : 77.6 kg % [place] Body Weight: 137 % IBW Adjusted Body Weight : 84.8 Kg ESTIMATED NEEDS: Weight Used for Equation Calculations: 84.8 kg kcal/k-25 Estimated Energy Needs (Low): 1866 kcal/day Estimated Energy Needs (High): 2120 kcal/day Weight Used to Calculate Protein Needs (Kg): 84.8 kg Method to Estimate Protein Needs (g/kg): 1 - 1.5 Estimated Protein Needs (Low): 85 Estimated Protein Needs (High): 127 NUTRITION DIAGNOSIS: Malnutrition (undernutrition) related to acute illness (osteomyelitis), taste changes as evidenced by 9% loss in 5 months and <75% of estimated energy intake x 1wk (ongoing for 2wks) NUTRITION PLAN AND INTERVENTIONS: Interventions: Other (Will monitor ability to advance diet. Recommend trial of liquacel supplementsBID given K is high. Once normalizes could switch to premier protein.) MONITORING AND EVALUATION: Nutrition Monitoring/Evaluation Monitoring: Meals/Supplement Intake, Wound Healing, Nausea/Vomiting/Diarrhea documented in this encounter Nursing Notes * Iris Figueredo R.N. - 02/27/2025 12:16 PM CDT INPATIENT DISCHARGE SUMMARY Discharge Provider: No att. providers found Admission Date: 02/22/2025 Discharge Date: 02/27/2025 DISCHARGE DISPOSITION Assisted Living CONDITION AT DISCHARGE stable TREATMENTS Wound care DEVICES/EQUIPMENT Home wound vac [employer] Continue out patient wound cares MODE OF DISCHARGE Wheelchair TRANSPORTATION Wheelchair Van ACCOMPANIED BY [employer] All belongings sent home with patient. Nurse to nurse given to Sondra at the facility. It was explained that the hospital did not have the same wound vac connects as his home machine therefore we would have to remove it and place a wet to dry dressing on until he was able to have the facility replace the vac. Sondra verbalized understanding this. * Renita Vilchis R.N. - 02/27/2025 12:40 AM CDT INPATIENT SHIFT SUMMARY ORIENTATION: Oriented to person, Oriented to place, and Disoriented to time SAFETY MEASURES: Bed Alarm and Hourly Rounding ASSISTED MOBILITY: x2 and Ceiling lift VITALS: Vitals assessed and stable this shift INTAKE: Adequate for solids and Adequate for liquids OUTPUT: Patient has been urinating adequately. Patient has indwelling catheter in place. Patient has biliary tube that is having brown/green output. Last BM 02/24. PAIN: Patient has not had any complaints of pain this shift. PRN MEDICATIONS UTILIZED THIS SHIFT: None DVT PROPHYLAXIS: Eliquis CHG/GRECO CARE NEEDS: Greco cares SHIFT EVENTS: No acute events this shift. EDUCATION: Educated Patient on fall prevention, wound care, and acute pain management. UPCOMING PLAN OF CARE: Possible DC 02/27 to [facility] with wheelchair van to transport. Problem: KNOWLEDGE DEFICIT Goal: Patient/family/caregiver demonstrates understanding of disease process, treatment plan, medications, and discharge instructions Outcome: Progressing Problem: SKIN/TISSUE INTEGRITY Goal: Skin/Tissue integrity maintained or improved Outcome: Progressing Problem: SAFETY ADULT Goal: Maintain a safe environment Outcome: Progressing * Shayna Noriega R.N. - 02/26/2025 6:37 PM CDT Shift Goals: Safety, pain management, rest Identify possible barriers to meeting goals/advancing plan of care: None End of Shift Summary: Patient rested on and off throughout shift. Patient reported 9/10 pain. Gave PRN Oxy. Patient's wound vac was changed by the wound care team. Wound pictures and orders were updated at this time. Patient was up to the chair during shift. Patient's greco remain in place. Patient's biliary tube remains in place. A/Ox3. VSS. Bed alarm on for safety. * Vivian Smith R.N., [facility] - 02/26/2025 2:11 PM CDT Images from the original note were not included. REASON FOR CONSULT: Stage 4 Pressure Ulcer Sacrum: Present Upon Admission Stage 4 Pressure Ulcer Left Ischial Tuberosity: Present Upon Admission Deep Tissue Pressure Injury Right Buttocks: Present Upon Admission Friction Injury Coccyx: Present Upon Admission HISTORY OF PRESENT ILLNESS: 75-year-old male with history of multiple sclerosis and paraplegia with neurogenic bowel and bladder with chronic decubitus ulcers. Also with history of pulmonary emboli on Eliquis. He presented withaltered mental status of unclear etiology on 02/22/2025. Wound care is addressing buttock wounds and lower extremity wounds (suspected heel DTIs; healing). He came in with a home wound vac and he was converted to the hospital wound vac on 02/24/2025. WOUND ASSESSMENT: Wounds are stable. Measurements taken while patient on right side Wound #1 Type: Pressure Injury [facility] Pressure Injury Staging: Stage 4 Wound Location: Sacrum/Low back Wound Orientation: Mid Wound Tunnel/Induration: Length 2.5 cm, Width 2.5 cm, Depth 1.5 cm, and Undermining 2.0 cm at 1 o'clock . Wound Bed Tissue: Red, Clean, and Granulation tissue 100% Isatu-Wound Skin: Blanchable erythema, Denuded, Fragile, and Red Wound Drainage Amount and Appearance: Serosanguineous Wound #2 Type: Pressure Injury [facility] Pressure Injury Staging: Stage 4 Wound Location: Ischial Tuberosity Wound Orientation: Left Wound Tunnel/Induration: Length 6 cm, Width 3.5 cm, Depth 3.5 cm, and Undermining 3.3 cm at 9-6 o'clock . Wound Bed Tissue: Red, Yellow, Granulation 75% 25% Slough Isatu-Wound Skin: Blanchable erythema, Denuded, Fragile, and Red Wound Drainage Amount and Appearance: Serosanguineous Wound #3 Type: Pressure Injury [facility] Pressure Injury Staging: Deep Tissue Wound Location: Buttock Wound Orientation: Right Wound Tunnel/Induration: Length 3 cm, Width 2 cm Wound Bed Tissue: fibrin;red Isatu-Wound Skin: Blanchable erythema, Denuded, Fragile, and Red Wound Drainage Amount and Appearance: None 02/24/2025 PLAN: COCCYX/RIGHT BUTTOCK: 2 X DAILY Cleanse with vashe. Do not scrub hard. Dab dry. Apply a thin layer of zinc based barrier cream. Cover abd pad and secure with Medipore tape. BUTTOCK WOUNDS: 3 X WEEKLY Wound VAC dressing change 3x weekly 1. Pre-medicate with oral pain medicine 30-60 minutes prior to dressing change. 2. Turn VAC off prior to dressing change. 3. Remove drape and foam inside the wound. May moisten with saline as needed to prevent trauma. 4. Cleanse wounds with Vashe wound cleanser moistened gauze. Allow Vashe moistened gauze to sit in wounds for 5-10 minutes while you prepare rest of dressings. 5. Cleanse skin around wound with Vashe wound cleanser. Then dry. 6. Measure wounds (Sacrum & Left IT) and gently probe areas of undermining and tunneling to include in measurements. 7. Apply black or Silver foam into each wound bed making sure to gently pack into undermined and tunnel areas. 8. Pre-treat skin around the wound with Stoma Powder. Rub in well and brush off excess. If she getsa rash, may use Miconazole powder instead. 9. Dab over powder with No Sting Barrier wipe or wound. Air dry. 10. Window pane drape around the wound. Apply an ostomy barrier ring over the window pane around wound to help seal. 11. Cover wounds with drape. 12. Drape from wound area up to right hip for bridge to be placed. 13. Cut a small dime sized hole directly over each wound area. Over hole you just cut place a bridge piece of foam from IT wound up to coccyx wound. From coccyx wound place another longer piece of bridge up to the hip. 13. Over bridge piece on hip cut a dime sized council in the drape. Place Sensitrack. Place more drape over Sensitrack head. 14. Set to -125 mmHg low continuous negative pressure. 15. Change canister every 7 days or when full, whichever is SOONER. Change Y connector weekly on Monday. Additional VAC orders: -If there is an air leak - reinforce V.A.C. Dressing with V.A.C. Drape or Tegaderm as needed until fixed. -If wound VAC fails or pressure is at 0 mmHg for >2 hours, remove the VAC dressing, pack with Vashe moistened gauze, and cover with ABD pad. Replace VAC dressing once able. IF VAC FAILS OR IS OFF FOR 2 OR MORE HOURS, FOLLOW BELOW ORDERS UNTIL NEW VAC CAN BE PLACED: 1.Remove old dressings. Utilize saline to aid removal and prevent sticking. 2.Cleanse wound bases then periwound skin with Vashe wound cleanser 3.Pat dry 4.Moisten several 4x4 gauze pads with Vashe (wring out excess moisture so it is not dripping wet) apply as first layer in wound. 5.Gently pack DRY 4 Kerlix (roll gauze) into open wound beds. Do not over pack wound. 6.Place overlying dry gauze, ABD pad OR Optilock super absorbant dressing. 7.Secure with Medipore tape OFFLOADING : 1. [employer] 3 low air loss mattress. Ensure it is plugged in and operational at all times. Set firmness to patient comfort level. Keep in immersion setting. 2. Head of bed no> 30 , except with meals. 3. Turn every 2 hours. 4. Limit time in chair to 1-2 hour increments. Utilize chair cushion. Be sure the head of the chairis reclined as far back as possible to limit sliding down in chair. BILATERAL HEELS: 3 X WEEKLY Cleanse with Vashe wound cleanser Pat skin dry Apply a 2 x 2 gauze and a 4 x 4 Mepilex OFFLOADING: Please be sure bilateral ankles/heels are offloaded in Prevalon (blue) boots at all times unless ambulating in room. Hilton wedges need to be on lateral side to keep anatomic position of ankle. Please contact [facility] RNs if you have any question or concerns regarding wound care. Paty Duque R.N., CWON at [phone] Martine Deluna R.N., CWCN at [phone] * Aislinn Isbell - 02/26/2025 4:55 AM CDT INPATIENT SHIFT SUMMARY ORIENTATION: Oriented to person, Oriented to place, and Disoriented to time SAFETY MEASURES: Met by Routine ASSISTED MOBILITY: x2 and Ceiling lift VITALS: Vitals assessed and stable this shift INTAKE: Inadequate for solids, but improving and Inadequate for liquids, but improving OUTPUT: Patient has indwelling catheter in place. PAIN: Patient has not had any complaints of pain this shift. PRN MEDICATIONS UTILIZED THIS SHIFT: None DVT PROPHYLAXIS: SCDs and Eliquis CHG/GRECO CARE NEEDS: Greco cares SHIFT EVENTS: Patient slept well through the night. Patient refused his atorvastatin this shift because they weretoo big for him to swallow. Staff offered to spilt them in half or crush them and put them in applesauce or pudding, but he still refused. Patient's greco and drains are draining well. Patient's heels were red and blanchable, utilized boots this shift and frequent repositions. EDUCATION: Educated Patient on atorvastatin. UPCOMING PLAN OF CARE: Continue with plan of care Cosigned by Acacia Archer RFiliberto at 02/26/2025 5:57 AM CDT * Iris Garcia R.N. - 02/25/2025 6:04 PM CDT Shift Goals: Clinical Goals for the Shift: Pt will remain fall free INPATIENT SHIFT SUMMARY ORIENTATION: Disoriented to time SAFETY MEASURES: Bed Alarm ASSISTED MOBILITY: x2, Ceiling lift, and repositioning (Other comment) VITALS: Vitals assessed and stable this shift INTAKE: Adequate for solids and Adequate for liquids OUTPUT: Patient has indwelling catheter in place. PAIN: Pain has been well controlled with scheduled medications PRN MEDICATIONS UTILIZED THIS SHIFT: None DVT PROPHYLAXIS: Eliquis CHG/GRECO CARE NEEDS: Greco cares SHIFT EVENTS: Pt has been alert and oriented x2, not sure of month or year. Pt's greco has been draining well. Ptwent to commode to have a bowel movement but no results. Pt has tolerated the advancement to a regular textured food and thin liquids well. EDUCATION: Educated Patient on aspiration risk UPCOMING PLAN OF CARE: Will continue to follow plan of care * Spring Salmeron RAmparoNAmparo - 02/25/2025 6:18 AM CDT Shift Goals: Clinical Goals for the Shift: Pt will remain safe and free from falls. INPATIENT SHIFT SUMMARY ORIENTATION: Oriented to person, Disoriented to place, and Disoriented to time SAFETY MEASURES: Bed Alarm ASSISTED MOBILITY: x2 VITALS: Vitals assessed and stable this shift INTAKE: Inadequate for solids, but improving and Inadequate for liquids, but improving OUTPUT: Patient has indwelling catheter in place. PAIN: Pt was restless and endorsed pain. Offered medication and pt declined. PRN MEDICATIONS UTILIZED THIS SHIFT: None DVT PROPHYLAXIS: Eliquis CHG/GRECO CARE NEEDS: Greco cares SHIFT EVENTS: No acute events this shift. EDUCATION: Educated Patient on Catheter care and dysphagia diet. UPCOMING PLAN OF CARE: Continue plan of care. * Dianne Amaya R.N. - 02/24/2025 10:02 PM CDT Shift Goals: Clinical Goals for the Shift: Monitor mental satus, VSS, Maintain safety INPATIENT SHIFT SUMMARY ORIENTATION: Oriented to person, [...] SHIFT EVENTS: No acute events this shift. EDUCATION: Educated Patient on importance of repositioning in bed. UPCOMING PLAN OF CARE: Encourage repositioning in bed. Continue with POC. * Ashley Rosas R.N. - 02/24/2025 5:02 PM CDT Palliative Medicine Nursing Initial Encounter Reason for consult: Goals of care. Referring provider: Dr Chand Healthcare directives: Advance Directive on file Yes/No: No Role of Palliative Medicine and reason for consultation explained to dt Samantha Palliative Medicine consultation scheduled for 02/25/2025 Joining in person: Samantha Consult Location [id number] Updated bedside nurse , Dr. Chand, and Palliative Medicine Team. * Livier Vance R.N. - 02/24/2025 4:05 PM CDT INPATIENT SHIFT SUMMARY ORIENTATION: Oriented to person, Disoriented to place, and Disoriented to time SAFETY [...] SHIFT EVENTS: No acute events this shift. EDUCATION: Educated Patient on Wound care UPCOMING PLAN OF CARE: Discharge plan pending. Waiting for blood cultures. * Sharon Blankenship R.N. - 02/23/2025 10:54 PM CDT INPATIENT SHIFT SUMMARY ORIENTATION: Oriented to person, Oriented to place, and Disoriented to time SAFETY MEASURES: Bed Alarm and Hourly Rounding ASSISTED MOBILITY: x2 and Ceiling lift VITALS: Vitals assessed and stable this shift INTAKE: Adequate for solids and Adequate for liquids OUTPUT: Patient has indwelling catheter in place. Patient had a bowel movement today. PAIN: Patient has not had any complaints of pain this shift. PRN MEDICATIONS UTILIZED THIS SHIFT: None DVT PROPHYLAXIS: Eliquis CHG/GRECO CARE NEEDS: Greco cares SHIFT EVENTS: No acute events this shift. UPCOMING PLAN OF CARE: Patient will continue plan of care. Wound care consult on Monday. * Tamika Lynn R.N. - 02/23/2025 6:42 AM CDT ORIENTATION: Orientated to person, Disoriented to place, Disoriented to time, and Pt not oriented to situation. Patient was pleasantly confused. SAFETY MEASURES: Bed Alarm, Chair Alarm, and VCM ASSISTED MOBILITY: x2 and Ceiling lift VITALS: Patient's BP was lower around 0130; provider was notified - see orders. No complaints of SOB and remains on RA. INTAKE: Maintenance IV fluids. Speech will evaluate patient 02/23. OUTPUT: Patient has indwelling catheter in place. PAIN: Pain has been well controlled with PRN medications PRN MEDICATIONS UTILIZED THIS SHIFT: Oxycodone DVT PROPHYLAXIS: Eliquis CHG/GRECO CARE NEEDS: Greco cares SHIFT EVENTS: No acute events overnight and patient slept well. Patient was repositioned throughout night. UPCOMING PLAN OF CARE: Continue IV abx and monitor mental status. Patient has bed hold at facility and will return there once medically stable. * Nuria Guerrero R.N. - 02/22/2025 4:33 PM CDT Shift Goals: Clinical Goals for the Shift: VSS, monitor intake and output, wound care, promote safety and comfort INPATIENT SHIFT SUMMARY ORIENTATION: Patient disoriented x3. Patient agitated early in shift but pleasant and cooperative most of the day. SAFETY MEASURES: Bed Alarm, VCM, and Hourly Rounding ASSISTED MOBILITY: x2, Ceiling lift, and Complete assistance VITALS: Vitals assessed and stable this shift INTAKE: Patient NPO pending speech evaluation OUTPUT: Patient has been urinating adequately. Patient has indwelling catheter in place. Patient had a bowel movement today. Patient has been incontinent of urine and bowel. PAIN: Pain has been well controlled with scheduled medications PRN MEDICATIONS UTILIZED THIS SHIFT: None DVT PROPHYLAXIS: SCDs and Eliquis CHG/GRECO CARE NEEDS: Greco cares SHIFT EVENTS: Patient pleasant for majority of the shift, however, did refuse most morning meds and [employer] evaluation, thus NPO all day. Wound care completed and redone in the afternoon due to incontinence. Patient had two incontinent BMs today. Patient had R wrist aspirated by Dr. Nunn- cultures and tests pending.Patient also went down to IR for cholecystostomy tube check, dressing and drainage bag were changedat IR. Patient had a fever of 38.1 C and recheck 37.6 C, provider notified, PRN tylenol ordered, patient given ice and tylenol. Pt also tachycardic in the 120s, provider notified, 500 mL LR bolus started. UPCOMING PLAN OF CARE: Continue to monitor chronic greco and cholecystostomy tube. Encourage cooperation in cares. Promotesafety. * Tamika Lynn R.N. - 02/22/2025 5:58 AM CDT INPATIENT SHIFT SUMMARY ORIENTATION: Disoriented to person, Disoriented to place, Disoriented to time, and Pt not oriented to situation.Patient was agitated. SAFETY MEASURES: Bed Alarm, Chair Alarm, and VCM ASSISTED MOBILITY: x2 and Ceiling lift VITALS: Vitals assessed and stable this shift. No complaints of SOB and remains on RA. INTAKE: Maintenance IV fluids OUTPUT: Patient has indwelling catheter in place. Patient has low urine output.UA was sent. PAIN: Pain has been well controlled with PRN medications PRN MEDICATIONS UTILIZED THIS SHIFT: Oxycodone and fentanyl DVT PROPHYLAXIS: Eliquis CHG/GRECO CARE NEEDS: Greco cares SHIFT EVENTS: Patient arrived on unit around 0030. Patient was agitated, yelling, swearing, and hitting staff. IMhaldol was order and given. Patient still agitated, but less resistant to cares. Chronic greco was exchanged and UA was collected and sent. COVID swab was sent. Patient R wrist and knee are swollen and are painful, x-rays were taken - see results. Patient removed PIV - new one was placed. Pictures of chronic sacral wounds were taken and submitted to chart - RN packed and placed Mepilex over wounds; wound care consult was placed by provider. Patient was sent with previous wound vac that was removed at [place] ED. Potassium was high in am provider was notified - see orders. UPCOMING PLAN OF CARE: Continue IV abx and monitor mental status. documented in this encounter Miscellaneous Notes * Hospital Course - Nelson Chand M.D. - 02/22/2025 7:51 AM CDT Ren Ramirez is a 75 y.o. gentleman with complex comorbidities including multiple sclerosis, paraplegia with chronic decubitus ulcer complicated by chronic ischial osteomyelitis, history of DVT and PE on Eliquis, diabetes mellitus type 2, hypertension, coronary artery disease, cholecystitisstatus post percutaneous cholecystostomy tube placement last exchanged 02/04/2025, neurogenic bladder and bowel. Patient presented from SNF to [facility] Emergency Department 02/21 due to altered mental status, generalized pain with moaning, slurring his speech and eventually was briefly aphasic. Because of the aphasia, EMS activated pre-hospital stroke evaluation however it was reported that they were not convinced this was a stroke. On arrival to ED, were not able to detect any other focal deficits and patient was able to verbalize but unable to engage in meaningful conversation. He was found to be in BISHOP and also imaging studies at [place] showed: CT head Impression: No acute hemorrhage or large terriotry infarct. CT CAP Impression: 1. Improvement in minimal right lower lobe ground-glass and nodularity compared to a chest CT on 02/05/2025, likely aspiration. 2. Decompressed gallbladder with a cholecystostomy in place. Persistent indeterminate thickening and stranding of the gallbladder likely reflect chronic cholecystitis. 3. Indeterminate urinary bladder wall thickening with a Greco catheter in place. Recommend correlation with urinalysis. 4. Redemonstrated large soft tissue defect along the left ischial tuberosity with evidence of chronic osteomyelitis. Smaller soft tissue defect along the left posterior iliac bone with unchanged subtle sclerosis. No drainable fluid collection. The patient was eventually transferred to [facility] for further care, as it was suspected that the encephalopathy was secondary to underlying infection, most likely due to biliary source. Patient was started on broad spectrum antibiotics including Meropenem. Infectious disease was consulted and recommended transition to IV Ertapenem with end date 03/01/2025. His mental status did improve. Case was also reviewed by GI and general surgery, no acute intervention was deemed necessary. Follow as outpatient with general surgery to consider elective cholecystectomy. In terms of BISHOP, it was clearly pre-renal as his Cr returned to normal range after IVF. Palliative care medicine was consulted during this admission. documented in this encounter Plan of Treatment Upcoming Encounters Date Type Department Care Team (Latest Contact Info) Description 04/11/2025 10:00 AM CDT Hospital Encounter Department of Radiology in [address] [phone] Anuel Nunn M.D. [address] [place] [address] [phone] Qasim Rader M.D. [address] [place] [phone] 04/28/2025 1:00 PM CDT Comprehensive Visit Department of General Surgery in [address] [phone] Roland Benson D.O. [address] [place] [phone] Discharge Disposition: Home or Self Care Scheduled Orders Name Type Priority Associated Diagnoses Orde r Schedule [facility] Wound care Procedures Routine 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) Pressure Ulcer Of Unspecified Site Stage 4 (HCC) Expected: 02/27/2025, Expires: 05/30/2026 Scheduled Referrals Name Type Priority Associated Diagnoses Orde r Schedule Post Hospital Visit Primary Care Outpatient Referral Routine Expected: 03/05/2025, Expires: 05/29/2026 documented as of this encounter Procedures Procedure Name Priority Date/Time Associated Diagnosis Comments GLUCOSE POCT, B Routine 02/27/2025 11:[address] MIDLINE CATHETER Routine 02/27/2025 11:00 AM CDT 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) GLUCOSE POCT, B Routine 02/27/2025 6:54 AM CDT COMPREHENSIVE METABOLIC PANEL, S/P Routine 02/27/2025 6:37 AM CDT GLUCOSE POCT, B Routine 02/26/2025 8:02 PM CDT GLUCOSE POCT, B Routine 02/26/2025 4:07 PM CDT WOUND VAC Routine 02/26/2025 2:08 PM CDT Pressure Ulcer Of Unspecified Site Stage 4 (HCC) WOUND VAC Routine 02/26/2025 2:06 PM CDT 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) GLUCOSE POCT, B Routine 02/26/2025 11:42 AM CDT GLUCOSE POCT, B Routine 02/26/2025 7:23 AM CDT CBC WITH DIFFERENTIAL, B Routine 02/26/2025 6:21 AM CDT COMPREHENSIVE METABOLIC PANEL, S/P Routine 02/26/2025 6:21 AM CDT GLUCOSE POCT, B Routine 02/25/2025 8:17 PM CDT GLUCOSE POCT, B Routine 02/25/2025 4:13 PM CDT GLUCOSE POCT, B Routine 02/25/2025 11:22 AM CDT HEPATIC FUNCTION PANEL, S Routine 02/25/2025 7:59 AM CDT CBC WITH DIFFERENTIAL, B Routine 02/25/2025 7:59 AM CDT BASIC METABOLIC PANEL, S/P Routine 02/25/2025 7:59 AM CDT GLUCOSE POCT, B Routine 02/25/2025 6:51 AM CDT GLUCOSE POCT, B Routine 02/24/2025 9:29 PM CDT GLUCOSE POCT, B Routine 02/24/2025 5:07 PM CDT PA NEG PRESS WND THRPY <=50SCM Routine 02/24/2025 12:15 PM CDT Pressure Ulcer Of Unspecified Site Stage 4 (HCC) PA NEG PRESS WND THRPY <=50SCM Routine 02/24/2025 12:13 PM CDT 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) GLUCOSE POCT, B Routine 02/24/2025 11:29 AM CDT HEPATIC FUNCTION PANEL, S Routine 02/24/2025 5:44 AM CDT GLUCOSE POCT, B Routine 02/24/2025 5:44 AM CDT CBC WITH DIFFERENTIAL, B Routine 02/24/2025 5:44 AM CDT BASIC METABOLIC PANEL, S/P Routine 02/24/2025 5:44 AM CDT GLUCOSE POCT, B Routine 02/23/2025 8:28 PM CDT GLUCOSE POCT, B Routine 02/23/2025 4:41 PM CDT GLUCOSE POCT, B Routine 02/23/2025 11:06 AM CDT GLUCOSE POCT, B Routine 02/23/2025 8:11 AM CDT HEPATIC FUNCTION PANEL, S Routine 02/23/2025 6:17 AM CDT URIC ACID, S/P Routine 02/23/2025 6:17 AM CDT BASIC METABOLIC PANEL, S/P Routine 02/23/2025 6:17 AM CDT GLUCOSE POCT, B Routine 02/22/2025 9:06 PM CDT GLUCOSE POCT, B Routine 02/22/2025 5:00 PM CDT IR PERCUTANEOUS CHOLECYSTOSTOMY TUBE CHECK RAD - Routine (most inpatients and all outpatients) 02/22/2025 3:57 PM CDT HEPATIC FUNCTION PANEL, S Timed 02/22/2025 3:13 PM CDT BASIC METABOLIC PANEL, S/P Timed 02/22/2025 3:13 PM CDT RAD US JOINT ASPIRATION AND OR INJECTION RIGHT RAD - Routine (most inpatients and all outpatients) 02/22/2025 1:05 PM CDT BACTERIAL CULTURE, AEROBIC + SUSC Timed 02/22/2025 12:30 PM CDT CRYSTAL ID, BF Timed 02/22/2025 12:30 PM CDT CELL COUNT AND DIFFERENTIAL, BF Timed 02/22/2025 12:30 PM CDT GRAM STAIN Timed 02/22/2025 12:30 PM CDT BACTERIAL CULTURE, ANAEROBIC + SUSC Timed 02/22/2025 12:30 PM CDT GLUCOSE POCT, B Routine 02/22/2025 11:12 AM CDT GLUCOSE POCT, B Routine 02/22/2025 7:56 AM CDT ECG Routine 02/22/2025 6:47 AM CDT SARS COV-2,INFLUENZA A/B,RSV,PCR, V Routine 02/22/2025 5:02 AM CDT URINALYSIS, DIPSTICK Routine 02/22/2025 5:02 AM CDT BACTERIAL CULTURE, AEROBIC + SUSC, URINE Routine 02/22/2025 5:02 AM CDT DX KNEE RIGHT 4+ VIEWS RAD - Semiurgent (Fast; most ED patients; some inpatients) 02/22/2025 4:55 AM CDT DX WRIST RIGHT 3+ VIEWS RAD - Semiurgent (Fast; most ED patients; some inpatients) 02/22/2025 4:50 AM CDT BACTERIA / BAUTISTA CULTURE, BLOOD STAT 02/22/2025 4:35 AM CDT LACTATE FOR SEPSIS WITH REFLEX STAT 02/22/2025 4:28 AM CDT BACTERIA / BAUTISTA CULTURE, BLOOD STAT 02/22/2025 4:28 AM CDT CBC WITH DIFFERENTIAL, B Routine 02/22/2025 4:28 AM CDT COMPREHENSIVE METABOLIC PANEL, S/P Routine 02/22/2025 4:28 AM CDT GLUCOSE POCT, B Routine 02/22/2025 1:28 AM CDT documented in this encounter Results * Glucose, POCT (02/27/2025 11:38 AM CDT) Pathologist [facility] [place] Glucose, POCT, B 137 70 - 140 mg/dL 02/27/2025 11:38 AM CDT MKTO Blood 02/27/2025 11:3 8 AM CDT 02/27/2025 11:48 AM CDT us Generic Rals LAB POCT ORDERABLES-MANUAL Final Result [facility] [address] [place] [address], [facility] MKTO [facility] in [place] [address] [place] [address] * Place midline catheter (single lumen) (02/27/2025 11:00 AM CDT) Narrative Asia Maxwell R.N. - 02/27/2025 11:00 AM CDT Asia Maxwell R.N. 02/27/2025 11:[address] midline catheter (single lumen) Performed by: Asia Maxwell R.N. Authorized by: Ren Sung M.D. Care team members present 1. Asia Maxwell R.N. 3. Melissa Madrigal R.N. PROCEDURE DETAILS Select line: Midline Line type: temporary (non-tunneled, non-implanted) Line size: 3.0 FR Catheter to vein ratio less than 45%: yes Adult or Richard/Peds: adult # of lumens: single lumen Type of catheter: non-valved Laterality: left IV location: cephalic Optimal site selected: yes Number of insertion attempts: 1 Blood return: yes Placement assistance: ultrasound guided Ultrasound image guidance used to localize target, identify at risk structures, and dynamically used to direct therapy to the target. Image(s) acquired and saved. Catheter length (cm): 12 Initial exposed catheter (cm): 0 Mid upper arm circumference (cm): 33 All lumens flushed (Document volume in I/O): yes CONSENT Consent obtained: verbal Consent given by: Patient's daughter. The benefits, risks and alternatives to the procedure and the potential need for sedation or anesthesia as well as the names, roles, and responsibilities of healthcare team members performing significant interventional tasks were discussed with the patient and/or decision maker. UNIVERSAL PROTOCOL All relevant documentation and testing were reviewed and available. All required blood products, implants, devices and or special equipment were made available as applicable. Pre-procedure verification was conducted and the correct site was marked if required. A fire risk and smoke assessment were done as applicable. The procedural time-out to verify correct patient, correct side/site, and procedure was conducted prior to performing the procedure and confirmed in a procedural pause. PRE-PROCEDURE DETAILS Indications: Needed after discharge for ongoing care Appropriate hand hygiene, gown, cap, mask, protective eyewear, sterile gloves, skin preparation, sterile drape, and strict aseptic technique were utilized as applicable for the procedure.: yes Site preparation: Chlorhexidine SEDATION / ANESTHESIA Anesthesia method: local infiltration Local infiltrate type: lidocaine POST-PROCEDURE DETAILS Procedure completed successfully: yes Complications: no apparent complications Ren Sung M.D. PROCEDURE/MINOR SURGICAL ORDER TOMY Final Result * Glucose, POCT (02/27/2025 6:54 AM CDT) Glucose, POCT, B 127 70 - 140 mg/dL 02/27/2025 6:54 AM CDT MKTO Blood 02/27/2025 6:54 AM CDT 02/27/2025 7:03 AM CDT Generic Rals LAB POCT ORDERABLES-MANUAL Final Result [facility] [address] [place] [address], [facility] [address] * (ABNORMAL) Comprehensive Metabolic Panel (02/27/2025 6:37 AM CDT) Potassium, P 3.2(L) 3.6 - 5.2 mmol/L 02/27/2025 7:43 AM CDT MKTO Sodium, P 139 135 - 145 mmol/L 02/27/2025 7:43 AM CDT MKTO Chloride, P 109(H) 98 - 107 mmol/L 02/27/2025 7:43 AM CDT MKTO Bicarbonate, P 21(L) 22 - 29 mmol/L 02/27/2025 7:43 AM CDT MKTO Anion Gap, P 9 7 - 15 02/27/2025 7:43 AM CDT MKTO BUN (Blood Urea Nitrogen), P 14 8 - 24 mg/dL 02/27/2025 7:43 AM CDT MKTO Creatinine 0.64(L) 0.74 - 1.35 mg/dL 02/27/2025 7:43 AM CDT MKTO Estimated GFR (eGFR) >90 >=60 mL/min/BS A 02/27/2025 7:43 AM CDT MKTO Comment: Estimated GFR calculated using the 2020 CKD_EPI creatinine equation. Calcium, Total, P 8.7(L) 8.8 - 10.2 mg/dL 02/27/2025 7:43 AM CDT MKTO Glucose, P 129 70 - 140 mg/dL 02/27/2025 7:43 AM CDT MKTO Protein, Total, P 5.5(L) 6.3 - 7.9 g/dL 02/27/2025 7:43 AM CDT MKTO Albumin, P 2.7(L) 3.5 - 5.0 g/dL 02/27/2025 7:43 AM CDT MKTO Aspartate Aminotransferase (AST), P 50(H) 8 - 48 U/L 02/27/2025 7:43 AM CDT MKTO Alkaline Phosphatase, P 633(H) 40 - 129 U/L 02/27/2025 7:43 AM CDT MKTO Alanine Aminotransferase (ALT), P 60(H) 7 - 55 U/L 02/27/2025 7:43 AM CDT MKTO Bilirubin, Total, P 0.4 0.0 - 1.2 mg/dL 02/27/2025 7:43 AM CDT MKTO Blood (Blood, Venous) 02/27/2025 6:37 AM CDT 02/27/2025 7:17 AM CDT us Ren Sung M.D. LAB BLOOD ADD-ON Final Result [facility] [place] [address], [facility] MKTO [facility] in [place] [address] [place] [id number] * Glucose, POCT (02/26/2025 8:02 PM CDT) Glucose, POCT, B 131 70 - 140 mg/dL 02/26/2025 8:02 PM CDT MKTO Blood 02/26/2025 8:02 PM CDT 02/26/2025 8:58 PM CDT Generic Rals LAB POCT ORDERABLES-MANUAL Final Result Performing Organization Address City/[facility] Co de Phone Number [facility] [address] [place] [address], [place] [address] * (ABNORMAL) Glucose, POCT (02/26/2025 4:07 PM CDT) Glucose, POCT, B 168(H) 70 - 140 mg/dL 02/26/2025 4:07 PM CDT MKTO Blood 02/26/2025 4:07 PM CDT 02/26/2025 4:20 PM CDT Generic Rals LAB POCT ORDERABLES-MANUAL Final Result Performing Organization Address [facility] Co de Phone Number [facility] [address] [place] [address], [place] [address] * Wound Vac (02/26/2025 2:08 PM CDT) Narrative Vivian Smiht R.N., LAKISHA - 02/26/2025 2:08 PM CDT Vivian Smith R.N., CWON 02/26/2025 2:09 PM Wound Vac Performed by: Vivian Smith R.N., CWON Authorized by: Ren Sung M.D. Care team members present 1. Martine Deluna R.N., C.W.C.N. PROCEDURE DETAILS Type of wound vac procedure: dressing change Wound location: sacrum/buttock (left IT buttock wound) Wound laterality: left Wound width (cm): 3.5 Wound length (cm): 6 Wound depth (cm): 3.5 $ - Wound area (l x w - Sq. cm): 21 Tunneling: yes Undermining: yes Wound device type: standard Drainage present: yes Amount of drainage: moderate (50 - 200 mL) Type of drainage: sanguinous Wound vacuum seal (mmHg): 125 Type of suction: continuous Wound vac intensity: low Number of sponges placed: 1 CONSENT Consent obtained: verbal Consent given by: patient The benefits, risks and alternatives to the procedure and the potential need for sedation or anesthesia as well as the names, roles, and responsibilities of healthcare team members performing significant interventional tasks were discussed with the patient and/or decision maker. UNIVERSAL PROTOCOL All relevant documentation and testing were reviewed and available. All required blood products, implants, devices and or special equipment were made available as applicable. Pre-procedure verification was conducted and the correct site was marked if required. A fire risk and smoke assessment were done as applicable. The procedural time-out to verify correct patient, correct side/site, and procedure was conducted prior to performing the procedure and confirmed in a procedural pause. PRE-PROCEDURE DETAILS Indications: wound Appropriate hand hygiene, gown, cap, mask, protective eyewear, sterile gloves, skin preparation, sterile drape, and strict aseptic technique were utilized as applicable for the procedure: yes Procedure prep: vashe and no sting barrier film. SEDATION / ANESTHESIA Anesthesia method: none POST-PROCEDURE DETAILS Procedure successful: yes Complications: no apparent complications Ren Sung M.D. PROCEDURE/MINOR SURGICAL ORDER TOMY Final Result * Wound Vac (02/26/2025 2:06 PM CDT) Narrative Vivian Smith R.N., CWON - 02/26/2025 2:06 PM CDT Vivian Smith R.N., CWON 02/26/2025 2:08 PM Wound Vac Performed by: Vivian Smith R.N., CWON Authorized by: Ren Sung M.D. Care team members present 1. Martnie Deluna R.N., CAideeNAmparo PROCEDURE DETAILS Type of wound vac procedure: dressing change Wound location: sacrum/buttock (left sacrum/low back) Wound laterality: left Wound width (cm): 2.5 Wound length (cm): 2.5 Wound depth (cm): 1.5 $ - Wound area (l x w - Sq. cm): 6.3 Tunneling: yes Undermining: yes Wound device type: standard Drainage present: yes Amount of drainage: moderate (50 - 200 mL) Type of drainage: sanguinous Number of sponges removed: 1 Wound vacuum seal (mmHg): 125 Type of suction: continuous Wound vac intensity: low Number of sponges placed: 1 CONSENT Consent obtained: verbal The benefits, risks and alternatives to the procedure and the potential need for sedation or anesthesia as well as the names, roles, and responsibilities of healthcare team members performing significant interventional tasks were discussed with the patient and/or decision maker. UNIVERSAL PROTOCOL All relevant documentation and testing were reviewed and available. All required blood products, implants, devices and or special equipment were made available as applicable. Pre-procedure verification was conducted and the correct site was marked if required. A fire risk and smoke assessment were done as applicable. The procedural time-out to verify correct patient, correct side/site, and procedure was conducted prior to performing the procedure and confirmed in a procedural pause. PRE-PROCEDURE DETAILS Indications: wound Appropriate hand hygiene, gown, cap, mask, protective eyewear, sterile gloves, skin preparation, sterile drape, and strict aseptic technique were utilized as applicable for the procedure: yes Procedure prep: vashe and no sting barrier film. POST-PROCEDURE DETAILS Procedure successful: yes Complications: no apparent complications Ren Sung M.D. PROCEDURE/MINOR SURGICAL ORDER TOMY Final Result * (ABNORMAL) Glucose, POCT (02/26/2025 11:42 AM CDT) Glucose, POCT, B 144(H) 70 - 140 mg/dL 02/26/2025 11:42 AM CDT [facility] Blood 02/26/2025 11:4 2 AM CDT 02/26/2025 11:49 AM CDT Generic Rals LAB POCT ORDERABLES-MANUAL Final Result [facility] [address] [place] [address], [facility] MKTO [facility] in [address] [address] * Glucose, POCT (02/26/2025 7:23 AM CDT) Glucose, POCT, B 126 70 - 140 mg/dL 02/26/2025 7:23 AM CDT MKTO Blood 02/26/2025 7:23 AM CDT 02/26/2025 7:32 AM CDT us Generic Rals LAB POCT ORDERABLES-MANUAL Final Result [facility] [address] [place] [address], [facility] MKTO [facility] [address] * (ABNORMAL) Comprehensive Metabolic Panel (02/26/2025 6:21 AM CDT) Potassium, P 3.6 3.6 - 5.2 mmol/L 02/26/2025 7:30 AM CDT MKTO Sodium, P 143 135 - 145 mmol/L 02/26/2025 7:30 AM CDT MKTO Chloride, P 110(H) 98 - 107 mmol/L 02/26/2025 7:30 AM CDT MKTO Bicarbonate, P 21(L) 22 - 29 mmol/L 02/26/2025 7:30 AM CDT MKTO Anion Gap, P 12 7 - 15 02/26/2025 7:30 AM CDT MKTO BUN (Blood Urea Nitrogen), P 15 8 - 24 mg/dL 02/26/2025 7:30 AM CDT MKTO Creatinine 0.85 0.74 - 1.35 mg/dL 02/26/2025 7:30 AM CDT MKTO Estimated GFR (eGFR) >90 >=60 mL/min/BS A 02/26/2025 7:30 AM CDT MKTO Comment: Estimated GFR calculated using the 2020 CKD_EPI creatinine equation. Calcium, Total, P 8.8 8.8 - 10.2 mg/dL 02/26/2025 7:30 AM CDT MKTO Glucose, P 168(H) 70 - 140 mg/dL 02/26/2025 7:30 AM CDT MKTO Protein, Total, P 5.5(L) 6.3 - 7.9 g/dL 02/26/2025 7:30 AM CDT MKTO Albumin, P 2.7(L) 3.5 - 5.0 g/dL 02/26/2025 7:30 AM CDT MKTO Aspartate Aminotransferase (AST), P 56(H) 8 - 48 U/L 02/26/2025 7:30 AM CDT MKTO Alkaline Phosphatase, P 702(H) 40 - 129 U/L 02/26/2025 7:30 AM CDT MKTO Alanine Aminotransferase (ALT), P 96(H) 7 - 55 U/L 02/26/2025 7:30 AM CDT MKTO Bilirubin, Total, P 0.4 0.0 - 1.2 mg/dL 02/26/2025 7:30 AM CDT MKTO Blood (Blood, Venous) 02/26/2025 6:21 AM CDT 02/26/2025 6:58 AM CDT us Nelson Chand M.D. LAB BLOOD ADD-ON Final Result [facility] [address] [place] [address], [facility] [place] [address] * (ABNORMAL) CBC with Differential, Blood (02/26/2025 6:21 AM CDT) Hemoglobin 9.2(L) 13.2 - 16.6 g/dL 02/26/2025 7:07 AM CDT MKTO Hematocrit 30.2(L) 38.3 - 48.6 % 02/26/2025 7:07 AM CDT MKTO Erythrocytes 3.55(L) 4.35 - 5.65 x10(12)/L 02/26/2025 7:07 AM CDT MKTO MCV 85.1 78.2 - 97.9 fL 02/26/2025 7:07 AM CDT MKTO RBC Distrib Width 17.9(H) 11.8 - 14.5 % 02/26/2025 7:07 AM CDT MKTO Platelet Count 197 135 - 317 x10(9)/L 02/26/2025 7:07 AM CDT MKTO Leukocytes 6.9 3.4 - 9.6 x10(9)/L 02/26/2025 7:07 AM CDT MKTO Neutrophils 4.89 1.56 - 6.45 x10(9)/L 02/26/2025 7:07 AM CDT MKTO Lymphocytes 1.42 0.95 - 3.07 x10(9)/L 02/26/2025 7:07 AM CDT MKTO Monocytes 0.44 0.26 - 0.81 x10(9)/L 02/26/2025 7:07 AM CDT MKTO Eosinophils 0.14 0.03 - 0.48 x10(9)/L 02/26/2025 7:07 AM CDT MKTO Basophils 0.03 0.01 - 0.08 x10(9)/L 02/26/2025 7:07 AM CDT MKTO Blood (Blood, Venous) 02/26/2025 6:21 AM CDT 02/26/2025 6:58 AM CDT us Nelson Chand M.D. LAB BLOOD ADD-ON Final Result Performing Organization Address City/[facility]/ZIP Co de Phone Number [facility] [address] [place] [address], [place] [address] * (ABNORMAL) Glucose, POCT (02/25/2025 8:17 PM CDT) Glucose, POCT, B 148(H) 70 - 140 mg/dL 02/25/2025 8:17 PM CDT MKTO Blood 02/25/2025 8:17 PM CDT 02/25/2025 8:49 PM CDT us Generic Rals LAB POCT ORDERABLES-MANUAL Final Result [facility] [address] [place] [address], [address] [address] * Glucose, POCT (02/25/2025 4:13 PM CDT) Glucose, POCT, B 134 70 - 140 mg/dL 02/25/2025 4:13 PM CDT MKTO Blood 02/25/2025 4:13 PM CDT 02/25/2025 4:19 PM CDT Generic Rals LAB POCT ORDERABLES-MANUAL Final Result Performing Organization Address City/[facility]/ZIP Co de Phone Number [facility] [address] [place] [address], [address] [address] * (ABNORMAL) Glucose, POCT (02/25/2025 11:22 AM CDT) Glucose, POCT, B 141(H) 70 - 140 mg/dL 02/25/2025 11:22 AM CDT MKTO Blood 02/25/2025 11:2 2 AM CDT 02/25/2025 11:30 AM CDT Generic Rals LAB POCT ORDERABLES-MANUAL Final Result [facility] [address] [place] [address], [address] [address] * (ABNORMAL) Hepatic Function Panel (02/25/2025 7:59 AM CDT) Bilirubin, Total, P 0.4 0.0 - 1.2 mg/dL 02/25/2025 8:30 AM CDT MKTO Bilirubin, Direct, P 0.3 0.0 - 0.3 mg/dL 02/25/2025 8:30 AM CDT MKTO Aspartate Aminotransferase (AST), P 53(H) 8 - 48 U/L 02/25/2025 8:30 AM CDT MKTO Alanine Aminotransferase (ALT), P 90(H) 7 - 55 U/L 02/25/2025 8:30 AM CDT MKTO Alkaline Phosphatase, P 705(H) 40 - 129 U/L 02/25/2025 8:30 AM CDT MKTO Albumin, P 2.9(L) 3.5 - 5.0 g/dL 02/25/2025 8:30 AM CDT MKTO Protein, Total, P 5.9(L) 6.3 - 7.9 g/dL 02/25/2025 8:30 AM CDT MKTO Blood (Blood, Venous) 02/25/2025 7:59 AM CDT 02/25/2025 8:04 AM CDT us Nelson Chand M.D. LAB BLOOD ADD-ON Final Result [facility] [place] [address], [facility] MKTO [facility] [place] [address] * (ABNORMAL) Basic Metabolic Panel (02/25/2025 7:59 AM CDT) Potassium, P 3.8 3.6 - 5.2 mmol/L 02/25/2025 8:30 AM CDT MKTO Sodium, P 144 135 - 145 mmol/L 02/25/2025 8:30 AM CDT MKTO Chloride, P 111(H) 98 - 107 mmol/L 02/25/2025 8:30 AM CDT MKTO Bicarbonate, P 22 22 - 29 mmol/L 02/25/2025 8:30 AM CDT MKTO Anion Gap, P 11 7 - 15 02/25/2025 8:30 AM CDT MKTO BUN (Blood Urea Nitrogen), P 17 8 - 24 mg/dL 02/25/2025 8:30 AM CDT MKTO Creatinine 0.88 0.74 - 1.35 mg/dL 02/25/2025 8:30 AM CDT MKTO Estimated GFR (eGFR) 90 >=60 mL/min/BSA 02/25/2025 8:30 AM CDT MKTO Comment: Estimated GFR calculated using the 2020 CKD_EPI creatinine equation. Calcium, Total, P 9.5 8.8 - 10.2 mg/dL 02/25/2025 8:30 AM CDT MKTO Glucose, P 141(H) 70 - 140 mg/dL 02/25/2025 8:30 AM CDT MKTO Blood (Blood, Venous) 02/25/2025 7:59 AM CDT 02/25/2025 8:04 AM CDT us Nelson Chand M.D. LAB BLOOD ADD-ON Final Result [facility] [place] [address], [facility] MKTO [facility] [place] [address] [place] [address] * (ABNORMAL) CBC with Differential, Blood (02/25/2025 7:59 AM CDT) Pathologist [facility] [place] Hemoglobin 9.1(L) 13.2 - 16.6 g/dL 02/25/2025 8:07 AM CDT MKTO Hematocrit 29.8(L) 38.3 - 48.6 % 02/25/2025 8:07 AM CDT MKTO Erythrocytes 3.49(L) 4.35 - 5.65 x10(12)/L 02/25/2025 8:07 AM CDT MKTO MCV 85.4 78.2 - 97.9 fL 02/25/2025 8:07 AM CDT MKTO RBC Distrib Width 18.0(H) 11.8 - 14.5 % 02/25/2025 8:07 AM CDT MKTO Platelet Count 201 135 - 317 x10(9)/L 02/25/2025 8:07 AM CDT MKTO Leukocytes 7.0 3.4 - 9.6 x10(9)/L 02/25/2025 8:07 AM CDT MKTO Neutrophils 5.11 1.56 - 6.45 x10(9)/L 02/25/2025 8:07 AM CDT MKTO Lymphocytes 1.12 0.95 - 3.07 x10(9)/L 02/25/2025 8:07 AM CDT MKTO Monocytes 0.55 0.26 - 0.81 x10(9)/L 02/25/2025 8:07 AM CDT MKTO Eosinophils 0.16 0.03 - 0.48 x10(9)/L 02/25/2025 8:07 AM CDT MKTO Basophils <0.03 0.01 - 0.08 x10(9)/L 02/25/2025 8:07 AM CDT MKTO Blood (Blood, Venous) 02/25/2025 7:59 AM CDT 02/25/2025 8:04 AM CDT us Nelson Chand M.D. LAB BLOOD ADD-ON Final Result Performing Organization Address City/[facility]/ZIP Co de Phone Number [facility] [address] [place] [address] * Glucose, POCT (02/25/2025 6:51 AM CDT) Glucose, POCT, B 127 70 - 140 mg/dL 02/25/2025 6:51 AM CDT MKTO Blood 02/25/2025 6:51 AM CDT 02/25/2025 6:59 AM CDT us Generic Rals LAB POCT ORDERABLES-MANUAL Final Result Performing Organization Address [facility]/ZIP Co de Phone Number [facility] [address] [place] [address] * (ABNORMAL) Glucose, POCT (02/24/2025 9:29 PM CDT) Glucose, POCT, B 160(H) 70 - 140 mg/dL 02/24/2025 9:29 PM CDT MKTO Blood 02/24/2025 9:29 PM CDT 02/24/2025 9:37 PM CDT us Generic [facility]als LAB POCT ORDERABLES-MANUAL Final Result [facility] [address] [place] [address] * Glucose, POCT (02/24/2025 5:07 PM CDT) Glucose, POCT, B 111 70 - 140 mg/dL 02/24/2025 5:07 PM CDT [facility] Blood 02/24/2025 5:07 PM CDT 02/24/2025 5:15 PM CDT us Generic Rals LAB POCT ORDERABLES-MANUAL Final Result Performing Organization Address City/[facility]/ZIP Co de Phone Number [facility] [address] [place] [address], [place] [address] * PA NEG PRESS WND THRPY <=50SCM (02/24/2025 12:15 PM CDT) Narrative Paty Duque R.N., Avi.Charity.C.NAmparo, LAKISHA - 02/24/2025 12:15 PM CDT Paty Duque R.N., Avi.W.C.NAmparo, LAKISHA 02/24/2025 12:19 PM Wound Vac Performed by: Paty Duque R.N., Avi.DarrynC.NAmparo, LAKISHA Authorized by: Nelson Chand M.D. Care team members present 1. Vivian Smith R.N., LAKISHA PROCEDURE DETAILS Type of wound vac procedure: first time application Location: Ischial Tuberosity. Wound laterality: left Percent of granulation tissue: 50 Bleeding/oozing: controlled Wound width (cm): 9 Wound length (cm): 2.5 Wound depth (cm): 4 $ - Wound area (l x w - Sq. cm): 22.5 Tunneling: no Undermining: yes Wound description: Stage 4 Pressure Ulceration Wound device type: standard Debridement performed: no Drainage present: yes Amount of drainage: moderate (50 - 200 mL) Type of drainage: serosanguinous Wound vacuum seal (mmHg): 125 Type of suction: continuous Wound vac intensity: low Number of sponges placed: 2 CONSENT Consent obtained: verbal The benefits, risks and alternatives to the procedure and the potential need for sedation or anesthesia as well as the names, roles, and responsibilities of healthcare team members performing significant interventional tasks were discussed with the patient and/or decision maker. UNIVERSAL PROTOCOL All relevant documentation and testing were reviewed and available. All required blood products, implants, devices and or special equipment were made available as applicable. Pre-procedure verification was conducted and the correct site was marked if required. A fire risk and smoke assessment were done as applicable. The procedural time-out to verify correct patient, correct side/site, and procedure was conducted prior to performing the procedure and confirmed in a procedural pause. PRE-PROCEDURE DETAILS Indications: wound Appropriate hand hygiene, gown, cap, mask, protective eyewear, sterile gloves, skin preparation, sterile drape, and strict aseptic technique were utilized as applicable for the procedure: yes Procedure prep: 3M No sting barrier film, Vashe, Stoma Powder. SEDATION / ANESTHESIA Anesthesia method: none POST-PROCEDURE DETAILS Procedure successful: yes Complications: no apparent complications Nelson Chand M.D. PROCEDURE/MINOR SURGICAL ORDERAB LES Final Result * PA NEG PRESS WND THRPY <=50SCM (02/24/2025 12:13 PM CDT) Narrative Paty Duque R.N., C.W.C.NLAKISHA Christensen - 02/24/2025 12:13 PM CDT Paty Duque R.N., C.W.C.NLAKISHA Christensen 02/24/2025 12:15 PM Wound Vac Performed by: Paty Duque R.N., Avi.W.C.NLAKISHA Christensen Authorized by: Nelson Chand M.D. Care team members present 1. Werden, Vivian D, R.N., CWON PROCEDURE DETAILS Wound location: sacrum/buttock Wound laterality: midline Percent of granulation tissue: 100 Bleeding/oozing: controlled Wound width (cm): 4.3 Wound length (cm): 3.5 Wound depth (cm): 1.5 $ - Wound area (l x w - Sq. cm): 15.1 Tunneling: no Undermining: no Wound description: Stage 4 Pressure Ulcer Wound device type: standard Debridement performed: no Drainage present: yes Amount of drainage: scant (< 50 mL) Type of drainage: serosanguinous CONSENT Consent obtained: verbal Consent given by: patient The benefits, risks and alternatives to the procedure and the potential need for sedation or anesthesia as well as the names, roles, and responsibilities of healthcare team members performing significant interventional tasks were discussed with the patient and/or decision maker. UNIVERSAL PROTOCOL All relevant documentation and testing were reviewed and available. All required blood products, implants, devices and or special equipment were made available as applicable. Pre-procedure verification was conducted and the correct site was marked if required. A fire risk and smoke assessment were done as applicable. The procedural time-out to verify correct patient, correct side/site, and procedure was conducted prior to performing the procedure and confirmed in a procedural pause. PRE-PROCEDURE DETAILS Indications: wound Appropriate hand hygiene, gown, cap, mask, protective eyewear, sterile gloves, skin preparation, sterile drape, and strict aseptic technique were utilized as applicable for the procedure: yes Procedure prep: 3M No Sting Barrier Film, Stoma Powder, Vashe. SEDATION / ANESTHESIA Anesthesia method: none POST-PROCEDURE DETAILS Procedure successful: yes Complications: no apparent complications us Nelson Chand M.D. PROCEDURE/MINOR SURGICAL ORDERAB LES Final Result * Glucose, POCT (02/24/2025 11:29 AM CDT) Glucose, POCT, B 137 70 - 140 mg/dL 02/24/2025 11:29 AM CDT MKTO Blood 02/24/2025 11:2 9 AM CDT 02/24/2025 11:39 AM CDT us Generic [facility] POCT ORDERABLES-MANUAL Final Result [facility] [place] [address], [address] [address] * Glucose, POCT (02/24/2025 5:44 AM CDT) Glucose, POCT, B 102 70 - 140 mg/dL 02/24/2025 5:44 AM CDT MKTO Blood 02/24/2025 5:44 AM CDT 02/24/2025 9:13 PM CDT us Generic [facility] POCT ORDERABLES-MANUAL Final Result Performing Organization Address City/State/[facility] Co de Phone Number [facility] [address] [place] [id number], [place] [address] * (ABNORMAL) Basic Metabolic Panel (02/24/2025 5:44 AM CDT) Potassium, P 4.1 3.6 - 5.2 mmol/L 02/24/2025 6:25 AM CDT MKTO Sodium, P 143 135 - 145 mmol/L 02/24/2025 6:25 AM CDT MKTO Chloride, P 109(H) 98 - 107 mmol/L 02/24/2025 6:25 AM CDT MKTO Bicarbonate, P 22 22 - 29 mmol/L 02/24/2025 6:25 AM CDT MKTO Anion Gap, P 12 7 - 15 02/24/2025 6:25 AM CDT MKTO BUN (Blood Urea Nitrogen), P 25(H) 8 - 24 mg/dL 02/24/2025 6:25 AM CDT MKTO Creatinine 1.02 0.74 - 1.35 mg/dL 02/24/2025 6:25 AM CDT MKTO Estimated GFR (eGFR) 77 >=60 mL/min/BSA 02/24/2025 6:25 AM CDT MKTO Comment: Estimated GFR calculated using the 2020 CKD_EPI creatinine equation. Calcium, Total, P 9.5 8.8 - 10.2 mg/dL 02/24/2025 6:25 AM CDT MKTO Glucose, P 107 70 - 140 mg/dL 02/24/2025 6:25 AM CDT MKTO Blood (Blood, Venous) 02/24/2025 5:44 AM CDT 02/24/2025 6:03 AM CDT us Nelson Chand M.D. LAB BLOOD ADD-ON Final Result [facility] [address] [place] [address], [facility] MKTO [facility] [place] [address] [place] [address] * (ABNORMAL) CBC with Differential, Blood (02/24/2025 5:44 AM CDT) Hemoglobin 9.2(L) 13.2 - 16.6 g/dL 02/24/2025 6:10 AM CDT MKTO Hematocrit 30.2(L) 38.3 - 48.6 % 02/24/2025 6:10 AM CDT MKTO Erythrocytes 3.59(L) 4.35 - 5.65 x10(12)/L 02/24/2025 6:10 AM CDT MKTO MCV 84.1 78.2 - 97.9 fL 02/24/2025 6:10 AM CDT MKTO RBC Distrib Width 18.4(H) 11.8 - 14.5 % 02/24/2025 6:10 AM CDT MKTO Platelet Count 222 135 - 317 x10(9)/L 02/24/2025 6:10 AM CDT MKTO Leukocytes 6.8 3.4 - 9.6 x10(9)/L 02/24/2025 6:10 AM CDT MKTO Neutrophils 4.96 1.56 - 6.45 x10(9)/L 02/24/2025 6:10 AM CDT MKTO Lymphocytes 1.17 0.95 - 3.07 x10(9)/L 02/24/2025 6:10 AM CDT MKTO Monocytes 0.47 0.26 - 0.81 x10(9)/L 02/24/2025 6:10 AM CDT MKTO Eosinophils 0.21 0.03 - 0.48 x10(9)/L 02/24/2025 6:10 AM CDT MKTO Basophils 0.03 0.01 - 0.08 x10(9)/L 02/24/2025 6:10 AM CDT MKTO Blood (Blood, Venous) 02/24/2025 5:44 AM CDT 02/24/2025 6:03 AM CDT us Nelson Chand M.D. LAB BLOOD ADD-ON Final Result [facility] [place] [address], [facility] MKTO [facility] [address] * (ABNORMAL) Hepatic Function Panel (02/24/2025 5:44 AM CDT) Bilirubin, Total, P 0.7 0.0 - 1.2 mg/dL 02/24/2025 6:25 AM CDT MKTO Bilirubin, Direct, P 0.5(H) 0.0 - 0.3 mg/dL 02/24/2025 6:25 AM CDT MKTO Aspartate Aminotransferase (AST), P 112(H) 8 - 48 U/L 02/24/2025 6:25 AM CDT MKTO Alanine Aminotransferase (ALT), P 131(H) 7 - 55 U/L 02/24/2025 6:25 AM CDT MKTO Alkaline Phosphatase, P 749(H) 40 - 129 U/L 02/24/2025 6:25 AM CDT MKTO Albumin, P 2.8(L) 3.5 - 5.0 g/dL 02/24/2025 6:25 AM CDT MKTO Protein, Total, P 5.9(L) 6.3 - 7.9 g/dL 02/24/2025 6:25 AM CDT MKTO Blood (Blood, Venous) 02/24/2025 5:44 AM CDT 02/24/2025 6:03 AM CDT us Nelson Chand M.D. LAB BLOOD ADD-ON Final Result Performing Organization Address City/[facility]/ZIP Co de Phone Number [facility] [address] [place] [address], [place] [address] * Glucose, POCT (02/23/2025 8:28 PM CDT) Glucose, POCT, B 132 70 - 140 mg/dL 02/23/2025 8:28 PM CDT MKTO Blood 02/23/2025 8:28 PM CDT 02/23/2025 8:36 PM CDT us Generic [facility] POCT ORDERABLES-MANUAL Final Result Performing Organization Address City/[facility] Co de Phone Number [facility] [address] [place] [address], [place] [address] * Glucose, POCT (02/23/2025 4:41 PM CDT) Glucose, POCT, B 92 70 - 140 mg/dL 02/23/2025 4:41 PM CDT MKTO Blood 02/23/2025 4:41 PM CDT 02/23/2025 4:51 PM CDT us Generic [facility] POCT ORDERABLES-MANUAL Final Result Performing Organization Address City/[facility]/ZIP Co de Phone Number [facility] [address] [place] [address], [place] [address] * Glucose, POCT (02/23/2025 11:06 AM CDT) Glucose, POCT, B 113 70 - 140 mg/dL 02/23/2025 11:06 AM CDT MKTO Blood 02/23/2025 11:0 6 AM CDT 02/23/2025 12:11 PM CDT us Generic [facility] POCT ORDERABLES-MANUAL Final Result [facility] [address] [place] [address], [place] [address] * Glucose, POCT (02/23/2025 8:11 AM CDT) Glucose, POCT, B 111 70 - 140 mg/dL 02/23/2025 8:11 AM CDT MKTO Blood 02/23/2025 8:1 1 AM CDT 02/23/2025 8:17 AM CDT us Generic [facility] POCT ORDERABLES-MANUAL Final Result Performing Organization Address City/[facility] Co de Phone Number [facility] [address] [place] [address], [place] [address] * (ABNORMAL) Basic Metabolic Panel (02/23/2025 6:17 AM CDT) Potassium, P 4.5 3.6 - 5.2 mmol/L 02/23/2025 11:09 AM CDT MKTO Sodium, P 141 135 - 145 mmol/L 02/23/2025 11:09 AM CDT MKTO Chloride, P 109(H) 98 - 107 mmol/L 02/23/2025 11:09 AM CDT MKTO Bicarbonate, P 18(L) 22 - 29 mmol/L 02/23/2025 11:09 AM CDT MKTO Anion Gap, P 14 7 - 15 02/23/2025 11:09 AM CDT MKTO BUN (Blood Urea Nitrogen), P 36(H) 8 - 24 mg/dL 02/23/2025 11:09 AM CDT MKTO Creatinine 1.37(H) 0.74 - 1.35 mg/dL 02/23/2025 11:09 AM CDT MKTO Estimated GFR (eGFR) 54(L) >=60 mL/min/BSA 02/23/2025 11:09 AM CDT MKTO Comment: Estimated GFR calculated using the 2020 CKD_EPI creatinine equation. Calcium, Total, P 9.1 8.8 - 10.2 mg/dL 02/23/2025 11:09 AM CDT MKTO Glucose, P 110 70 - 140 mg/dL 02/23/2025 11:09 AM CDT MKTO Blood (Blood, Venous) 02/23/2025 6:17 AM CDT 02/23/2025 10:55 AM CDT us Nelson Chand M.D. LAB BLOOD ADD-ON Final Result Performing Organization Address City/[facility]/ZIP Co de Phone Number [facility] [address] [place] [address], [place] [address] * (ABNORMAL) Uric Acid (02/23/2025 6:17 AM CDT) Uric Acid, P 10.9(H) 3.7 - 8.0 mg/dL 02/23/2025 8:52 AM CDT MKTO Blood (Blood, Venous) 02/23/2025 6:17 AM CDT 02/23/2025 8:40 AM CDT us Nelson Chand M.D. LAB BLOOD ADD-ON Final Result [facility] [address] [place] [address], [place] [address] * (ABNORMAL) Hepatic Function Panel (02/23/2025 6:17 AM CDT) Bilirubin, Total, P 1.3(H) 0.0 - 1.2 mg/dL 02/23/2025 7:20 AM CDT MKTO Bilirubin, Direct, P 1.0(H) 0.0 - 0.3 mg/dL 02/23/2025 7:20 AM CDT MKTO Aspartate Aminotransferase (AST), P 163(H) 8 - 48 U/L 02/23/2025 7:20 AM CDT MKTO Alanine Aminotransferase (ALT), P 150(H) 7 - 55 U/L 02/23/2025 7:20 AM CDT MKTO Alkaline Phosphatase, P 796(H) 40 - 129 U/L 02/23/2025 7:20 AM CDT MKTO Albumin, P 2.6(L) 3.5 - 5.0 g/dL 02/23/2025 7:20 AM CDT MKTO Protein, Total, P 5.4(L) 6.3 - 7.9 g/dL 02/23/2025 7:20 AM CDT MKTO Blood (Blood, Venous) 02/23/2025 6:17 AM CDT 02/23/2025 6:51 AM CDT us Nelson Chand M.D. LAB BLOOD ADD-ON Final Result [facility] [address] [place] [address] * Glucose, POCT (02/22/2025 9:06 PM CDT) Glucose, POCT, B 122 70 - 140 mg/dL 02/22/2025 9:06 PM CDT MKTO Blood 02/22/2025 9:06 PM CDT 02/22/2025 10:13 PM CDT us Generic [facility] POCT ORDERABLES-MANUAL Final Result Performing Organization Address City/[facility]/ZIP Co de Phone Number [facility] [address] [place] [address] * Glucose, POCT (02/22/2025 5:00 PM CDT) Glucose, POCT, B 140 70 - 140 mg/dL 02/22/2025 5:00 PM CDT MKTO Blood 02/22/2025 5:00 PM CDT 02/22/2025 5:21 PM CDT us Generic [facility] POCT ORDERABLES-MANUAL Final Result [facility] [address] [place] [address], [place] MKTO [facility] [place] [address] [place] [address] * IR Percutaneous Cholecystostomy Tube Check (02/22/2025 3:57 PM CDT) Anatomical Region Laterality Modality Abdomen, Vascular Interventi onal RST LOS, Vascular Interventional ARZ LOS, Neuroradiology ARZ LOS, Vascular Interventional FLA LOS N/A X-Ray Angiography Impressions 02/22/2025 10:22 PM CDT 1. Patent cholecystostomy tube. 2. Intermittent cystic duct obstruction; cystic duct is open on today's exam. 3. Common bile duct sludge without causing hepatic ductal dilatation. Narrative 02/22/2025 10:22 PM CDT EXAM: IR PERCUTANEOUS CHOLECYSTOSTOMY TUBE CHECK HISTORY: 75-year-old male with history of cholecystitis, assess tube position and patency of cystic duct COMPARISON: Cholecystostomy tube exchange from 02/04/2025 PROCEDURAL PERSONNEL: Attending: Anuel Nunn PREPROCEDURE: Patient seen, evaluated, and history reviewed. Discussed risks, benefits, alternatives for procedure, and obtained informed consent from the patient's family member. Patient's family member understood the information and questions answered. Immediately [...] medications. Patient education provided by a care cdl team truck driver. Patient's family member was ready to learn with no apparent learning barriers were identified. Post-procedure care explained; patient's family member expressed understanding of the content. PROCEDURE DETAILS: Sedation: None. Sedation time: Not applicable. Estimated Blood Loss: None. TECHNIQUE: The indwelling 14 Norwegian drainage catheter was injected with contrast, and multiple fluoroscopic images were saved to PACS. FINDINGS: Patent cholecystostomy tube located within a decompressed gallbladder. Multiple filling defects are present within the gallbladder. Cystic duct is patent. Common bile duct contains 90% stenosis at the superior portion located superior to the cystic duct insertion, likely secondary to sludge. However, no intrahepatic biliary ductal dilatation is noted. Contrast readily flows into the duodenum. PLAN: Routine blanca tube exchange 3 months after the previous exchange. Procedure Note Anuel Nunn M.D. - 02/22/2025 EXAM: IR PERCUTANEOUS CHOLECYSTOSTOMY TUBE CHECK HISTORY: 75-year-old male with history of cholecystitis, assess tubeposition and patency of cystic duct COMPARISON: Cholecystostomy tube exchange from 02/04/2025 PROCEDURAL PERSONNEL: Attending: Anuel Nunn PREPROCEDURE: Patient seen, evaluated, and history reviewed. Discussedrisks, benefits, alternatives for procedure, and obtained informed consentfrom the patient's family member. Patient's family member understood theinformation and questions answered. Immediately prior to starting the procedure, in the presence ofthe assisting personnel, procedural pause was conducted to verify correctpatient identity and verification of procedure to be performed, and asapplicable, correct side and site, correct patient position, availability of implants, special equipment, orspecial requirements, and all image and specimen identification data. Theroles and responsibilities of care team members were discussed. Themedication list was reviewed and there are no changes to current medications. Patient education provided by acare cdl team truck driver. Patient's family member was ready to learn with noapparent learning barriers were identified. Post-procedure care explained;patient's family member expressed understanding of the content. PROCEDURE DETAILS: Sedation: None. Sedation time: Not applicable. Estimated Blood Loss: None. TECHNIQUE: The indwelling 14 Norwegian drainage catheter was injected with contrast, andmultiple fluoroscopic images were saved to PACS. FINDINGS: Patent cholecystostomy tube located within a decompressed gallbladder.Multiple filling defects are present within the gallbladder. Cystic duct is patent. Common bile duct contains 90% stenosis at the superior portion locatedsuperior to the cystic duct insertion, likely secondary to sludge.However, no intrahepatic biliary ductal dilatation is noted. Contrastreadily flows into the duodenum. PLAN: Routine blanca tube exchange 3 months after the previous exchange. IMPRESSION: 1. Patent cholecystostomy tube. 2. Intermittent cystic duct obstruction; cystic duct is open on today'sexam. 3. Common bile duct sludge without causing hepatic ductal dilatation. us Elder Barrientos M.D. IMG IR PROCEDURES Final Res ult * (ABNORMAL) Hepatic Function Panel (02/22/2025 3:13 PM CDT) Bilirubin, Total, P 2.2(H) 0.0 - 1.2 mg/dL 02/22/2025 3:40 PM CDT MKTO Bilirubin, Direct, P 1.7(H) 0.0 - 0.3 mg/dL 02/22/2025 3:40 PM CDT MKTO Aspartate Aminotransferase (AST), P 214(H) 8 - 48 U/L 02/22/2025 3:40 PM CDT MKTO Alanine Aminotransferase (ALT), P 184(H) 7 - 55 U/L 02/22/2025 3:40 PM CDT MKTO Alkaline Phosphatase, P 995(H) 40 - 129 U/L 02/22/2025 3:40 PM CDT MKTO Albumin, P 2.8(L) 3.5 - 5.0 g/dL 02/22/2025 3:40 PM CDT MKTO Protein, Total, P 6.0(L) 6.3 - 7.9 g/dL 02/22/2025 3:40 PM CDT MKTO Blood (Blood, Venous) 02/22/2025 3:13 PM CDT 02/22/2025 3:16 PM CDT us Nelson Chand M.D. LAB BLOOD ADD-ON Final Result [facility] [address] [place] [address], [facility] MKTO [facility] [place] [address] [place] [address] * (ABNORMAL) Basic Metabolic Panel (02/22/2025 3:13 PM CDT) Potassium, P 5.3(H) 3.6 - 5.2 mmol/L 02/22/2025 3:40 PM CDT MKTO Sodium, P 137 135 - 145 mmol/L 02/22/2025 3:40 PM CDT MKTO Chloride, P 105 98 - 107 mmol/L 02/22/2025 3:40 PM CDT MKTO Bicarbonate, P 19(L) 22 - 29 mmol/L 02/22/2025 3:40 PM CDT MKTO Anion Gap, P 13 7 - 15 02/22/2025 3:40 PM CDT MKTO BUN (Blood Urea Nitrogen), P 45(H) 8 - 24 mg/dL 02/22/2025 3:40 PM CDT MKTO Creatinine 1.86(H) 0.74 - 1.35 mg/dL 02/22/2025 3:40 PM CDT MKTO Estimated GFR (eGFR) 37(L) >=60 mL/min/BSA 02/22/2025 3:40 PM CDT MKTO Comment: Estimated GFR calculated using the 2020 CKD_EPI creatinine equation. Calcium, Total, P 9.5 8.8 - 10.2 mg/dL 02/22/2025 3:40 PM CDT MKTO Glucose, P 143(H) 70 - 140 mg/dL 02/22/2025 3:40 PM CDT MKTO Blood (Blood, Venous) 02/22/2025 3:13 PM CDT 02/22/2025 3:16 PM CDT us Nelson Chand M.D. LAB BLOOD ADD-ON Final Result [facility] [place] [address], [facility] MKTO [facility] [address] * RAD US Joint Aspiration and or Injection Right (02/22/2025 1:05 PM CDT) Anatomical Region Laterality Modality Joint, Ultrasound RST LOS, U ltrasound ARZ LOS, Procedure FLA LOS, Muskuloskeletal FLA LOS Right Ultrasound Impressions 02/22/2025 3:40 PM CDT 1. US-guided right wrist joint aspiration. Narrative 02/22/2025 3:40 PM CDT EXAM: RAD US JOINT ASPIRATION AND OR INJECTION RIGHT HISTORY: 75-year-old male, right wrist tenderness limited ROM, pseudogout/infection? is there fluid to aspirate COMPARISON: Right wrist radiographs from 02/22/2025 PROCEDURAL PERSONNEL: Attending: Anuel Nunn PREPROCEDURE: Patient seen, evaluated, and history reviewed. Discussed risks, benefits, alternatives for procedure, and obtained informed consent from the patient's family member. Patient's family member understood the information and questions answered. Immediately [...] medications. Patient education provided by a care cdl team truck driver. Patient's family member was ready to learn with no apparent learning barriers were identified. Post-procedure care explained; patient's family member expressed understanding of the content. PROCEDURE DETAILS: Sedation: None. Sedation time: Not applicable. Estimated Blood Loss: Less than 5 mL. TECHNIQUE: Imaging guidance: Ultrasound with permanent image storage. Collection location: Right wrist dorsally at the level of the carpal bones Technique: Image guidance was used to localize the collection. A 20-gauge needle was used to access the collection under real time image guidance, and images were saved to PACS. Aspiration yielded half a milliliter of minimal joint fluid and debris. The needle was removed and a sterile dressing was applied. Intraprocedural or immediate post-procedural complications: None FINDINGS: Preprocedure imaging shows minimal joint effusion at the wrist. Postprocedure imaging shows no complications. Additional observations: N/A Procedure Note Anuel Nunn M.D. - 02/22/2025 EXAM: RAD US JOINT ASPIRATION AND OR INJECTION RIGHT HISTORY: 75-year-old male, right wrist tenderness limited ROM,pseudogout/infection? is there fluid to aspirate COMPARISON: Right wrist radiographs from 02/22/2025 PROCEDURAL PERSONNEL: Attending: Anuel Nunn PREPROCEDURE: Patient seen, evaluated, and history reviewed. Discussedrisks, benefits, alternatives for procedure, and obtained informed consentfrom the patient's family member. Patient's family member understood theinformation and questions answered. Immediately prior to starting the procedure, in the presence ofthe assisting personnel, procedural pause was conducted to verify correctpatient identity and verification of procedure to be performed, and asapplicable, correct side and site, correct patient position, availability of implants, special equipment, orspecial requirements, and all image and specimen identification data. Theroles and responsibilities of care team members were discussed. Themedication list was reviewed and there are no changes to current medications. Patient education provided by acare cdl team truck driver. Patient's family member was ready to learn with noapparent learning barriers were identified. Post-procedure care explained;patient's family member expressed understanding of the content. PROCEDURE DETAILS: Sedation: None. Sedation time: Not applicable. Estimated Blood Loss: Less than 5 mL. TECHNIQUE: Imaging guidance: Ultrasound with permanent image storage. Collection location: Right wrist dorsally at the level of the carpalbones Technique: Image guidance was used to localize the collection. A 20-gaugeneedle was used to access the collection under real time image guidance,and images were saved to PACS. Aspiration yielded half a milliliter ofminimal joint fluid and debris. The needle was removed and a sterile dressing was applied. Intraprocedural or immediate post-procedural complications: None FINDINGS: Preprocedure imaging shows minimal joint effusion at the wrist. Postprocedure imaging shows no complications. Additional observations: N/A IMPRESSION: 1. US-guided right wrist joint aspiration. us Nelson Chand M.D. [facility] US PROCEDURES Final Result * Crystal Identification, Body Fluid (02/22/2025 12:30 PM CDT) Crystal Specimen, Body Fluid Fluid, Synovial Fluid, Right Wrist 02/22/2025 12:48 PM CDT MKTO Crystal, Body Fluid SEE COMMENT 02/22/2025 2:25 PM CDT MKTO Comment: Extracellular and Intracellular Monosodium Urate Crystals present. Fluid (Synovial Fluid, Right Wrist) 02/22/2025 12:30 PM CDT 02/22/2025 12:48 PM CDT us Nelson Chand M.D. LAB BODY FLUIDS AND STOOLS ORDER TOMY Final Result [facility] [address] [place] [address], [facility] MKTO [facility] [place] [address] [place] [address] * Cell Count and Differential, Body Fluid (02/22/2025 12:30 PM CDT) Fluid Type RightWrist 02/22/2025 2:18 PM CDT MKTO Gross Appearance Slightly Cloudy 02/22/2025 2:18 PM CDT MKTO Total Nucleated Cells 150 /mcL 02/22/2025 2:18 PM CDT MKTO Comment: ----REFERENCE VALUE---- Synovial: <150 Peritoneal: <500 Pleural: <500 Pericardial: <500 ----ADDITIONAL INFORMATION---- This test has been modified from the manager medical affairs's instructions. Its performance characteristics were determined by [facility] in a manner consistent with CLIA requirements. This test has not been cleared or approved by the U.S. Food and Drug Administration. Neutrophils 76 % 02/22/2025 2:22 PM CDT MKTO Comment: ----REFERENCE VALUE---- Synovial: <25% Peritoneal: <25% Pleural: <25% Pericardial: <25% Lymphocytes 4 Synovial : <75% % 02/22/2025 2:22 PM CDT MKTO Monocytes/Macropha ges 20 Synovial : <70% % 02/22/2025 2:22 PM CDT MKTO Comment SeeComment 02/23/2025 10:43 AM CDT MKTO Comment:reviewed by Dr. Tigre Bradley, pathologist... ok. 02/23/25 @0752 Reviewed by: To be reviewed by pathology 02/22/2025 2:23 PM CDT MKTO Fluid (Synovial Fluid, Right Wrist) 02/22/2025 12:30 PM CDT 02/22/2025 12:48 PM CDT us Nelson Chand M.D. LAB BODY FLUIDS AND STOOLS ORDER TOMY Edited Result - Final Performing Organization Address City/[facility]/ZIP Co de Phone Number [facility] [address] [place] [address], [place] [address] * Gram Stain (02/22/2025 12:30 PM CDT) Gram Stain No organisms seen. White blood cells present. Stain performed on concentrated cytospin preparation. 02/22/2025 2:13 PM CDT [facility] Fluid (Synovial Fluid, Right Wrist) 02/22/2025 12:30 PM CDT 02/22/2025 12:48 PM CDT Comment:Specimen Source Site : Fluid us Nelson Chand M.D. LAB MICROBIOLOGY - GENERAL ORDER TOMY Final Result Performing Organization Address [facility] Co de Phone Number [facility] [address] [place] [address], [address] [address] * Bacterial Culture, Anaerobic + Susceptibility (02/22/2025 12:30 PM CDT) Bacterial Culture, Anaerobic No growth after 7 days of incubation. 03/01/2025 7:49 AM CDT [facility] Fluid (Synovial Fluid, Right Wrist) 02/22/2025 12:30 PM CDT 02/22/2025 12:48 PM CDT Comment:Specimen Source Site : Fluid us Nelson Chand M.D. LAB MICROBIOLOGY - GENERAL ORDER TOMY Final Result Performing Organization Address City/[facility]/ZIP Co de Phone Number [facility] [address] [place] [address], [address] [place] [address] * Bacterial Culture, Aerobic + Susceptibility (02/22/2025 12:30 PM CDT) Bacterial Culture, Aerobic + Susc No growth after 5 days of incubation. 02/27/2025 6:42 AM CDT MKTO Fluid (Synovial Fluid, Right Wrist) 02/22/2025 12:30 PM CDT 02/22/2025 12:48 PM CDT Comment:Specimen Source Site : Fluid us Nelson Chand M.D. LAB MICROBIOLOGY - GENERAL ORDER TOMY Final Result Performing Organization Address City/[facility]/ZIP Co de Phone Number [facility] [address] [place] [address], [address] [address] * (ABNORMAL) Glucose, POCT (02/22/2025 11:12 AM CDT) Glucose, POCT, B 146(H) 70 - 140 mg/dL 02/22/2025 11:12 AM CDT MKTO Blood 02/22/2025 11:1 2 AM CDT 02/22/2025 11:20 AM CDT us Generic [facility] POCT ORDERABLES-MANUAL Final Result [facility] [address] [place] [address], [address] [address] * Glucose, POCT (02/22/2025 7:56 AM CDT) Glucose, POCT, B 137 70 - 140 mg/dL 02/22/2025 7:56 AM CDT MKTO Blood 02/22/2025 7:56 AM CDT 02/22/2025 8:08 AM CDT us Generic [facility] POCT ORDERABLES-MANUAL Final Result Performing Organization Address [facility] Co de Phone Number [facility] [address] [place] [address], [facility] MKTO [facility] [place] [address] [place] [address] * ECG 12 Lead (02/22/2025 6:47 AM CDT) Ventricular Rate ECG/Min 98 BPM MUSE PA Interval 206 ms MUSE QRSD Interval 90 ms MUSE QT Interval 316 ms MUSE QTC Interval 403 ms MUSE P [place] 68 degrees MUSE R [place] 11 degrees MUSE T Wave [place] 69 degrees MUSE 02/22/2025 6:47 AM CDT 02/23/2025 2:14 PM CDT Impressions MUSE - 02/22/2025 7:22 AM CDT Poor data quality Sinus rhythm with 1st degree A-V block Low anterior forces When compared with ECG of 23-Jan-2025 17:18, No significant change was found Reviewed by VALE Tucker Narrative Procedure Note Yasmani Huitron M.D. - 02/23/2025 IMPRESSION: Poor data quality Sinus rhythm with 1st degree A-V block Low anterior forces When compared with ECG of 23-Jan-2025 17:18, No significant change was found Reviewed by VALE Tucker Nneka Yañez M.D. ECG ORDERABLES Edited Result - Final MUSE NA * SARS CoV-2, Influenza A/B, RSV, PCR Symptomatic (02/22/2025 5:02 AM CDT) Influenza A, PCR Undetected Undetected 02/23/20 6:40 AM CDT [facility] Comment:Influenza A viral RN A absent. Influenza B, PCR Undetected Undetected 02/23/20 6:40 AM CDT [facility] Comment:Influenza B viral RN A absent. Respiratory Syncytial Virus, PCR Undetected Undetected 02/22/2025 6:40 AM CDT [facility] Comment:RSV RNA absent. SARS-Coronavirus -2, PCR Undetected Undetected 02/22/2025 6:40 AM CDT [facility] Comment: SARS-CoV-2 RNA absent. ----ADDITIONAL INFORMATION---- This RT-PCR test using the Xpert Xpress SARS-CoV-2/Flu/RSV assay ([employer] performed on the [employer] DX systems has received Emergency Use Authorization (EUA) by the U.S. Food and Drug Administration. Performance characteristics were verified by [facility] in a manner consistent with CLIA requirements. Fact sheets for this Emergency Use Authorization (EUA) assay can be found at the following links: For Healthcare Providers: https://www.fda.gov/media/898705/download For Patients: https://www.fda.gov/media/098940/download Specimen Source Swab, Nasopharynx 02/22/2025 5:08 AM CDT MK Swab (Nasopharynx) 02/22/2025 5:02 AM CDT 02/22/2025 5:08 AM CDT us Nneka Yañez M.D. LAB MICROBIOLOG Y - GENERAL ORDERABLES Final Result [facility] [address] [place] [address], [facility] [place] [address] * Bacterial Culture, Aerobic + Susceptibility, Urine (02/22/2025 5:02 AM CDT) Urine Culture No growth after 1 day of incubation. 02/23/2025 8:47 AM CDT [facility] Urine (Urine, Indwelling Catheter) 02/22/2025 5:02 AM CDT 02/22/2025 5:11 AM CDT Comment:Specimen Source Site : Urine Nneka Yañez M.D. LAB MICROBIOLOG Y - GENERAL ORDERABLES Final Result [facility] [address] [place] [id number], [facility] in [place] [address] [place] [id number] * (ABNORMAL) Urinalysis, Dipstick (02/22/2025 5:02 AM CDT) Source Midstream 02/22/2025 6:08 AM CDT [facility] Clarity Turbid(A) Clear 02/22/2025 5:17 AM CDT [facility] Color Allyson 02/22/2025 5:17 AM CDT [facility] Comment: ----REFERENCE VALUE---- Colorless Yellow Allyson Blood Large(A) Negative 02/22/2025 5:17 AM CDT [facility] Nitrite Negative Negative 02/22/2025 5:17 AM CDT [facility] Leukocyte Esterase Large(A) Negative 02/22/2025 5:17 AM CDT [facility] Protein 100(A) mg/dL 02/22/2025 5:17 AM CDT [facility] Comment: ----REFERENCE VALUE---- Negative Trace Glucose Negative Negative mg/dL 02/22/2025 5:17 AM CDT [facility] Ketone Negative Negative mg/dL 02/22/2025 5:17 AM CDT [facility] Bilirubin Negative Negative 02/22/2025 5:17 AM CDT [facility] pH 5.0 5.0 - 8.0 02/22/2025 5:17 AM CDT [facility] Specific [place] >1.035(A) 1.001 - 1.035 02/22/2025 5:17 AM CDT [facility] Urobilinogen 1.0 0.2 - 1.0 mg/dL 02/22/2025 5:17 AM CDT [facility] Urine (Urine, Midstream) 02/22/2025 5:02 AM CDT 02/22/2025 5:17 AM CDT us Nneka Yañez M.D. LAB URINE ORDER TOMY Final Result Performing Organization Address City/[facility]/ZIP Co de Phone Number [facility] [address] [place] [id number], [facility] [place] [address] [place] [address] * DX Knee Right 4+ Views (02/22/2025 4:55 AM CDT) Anatomical Region Laterality Modality Lower Extremity, Knee, Muscu loskeletal RST LOS, Musculoskeletal ARZ LOS, Muskuloskeletal FLA LOS Right Digit al Radiography Impressions 02/22/2025 5:15 AM CDT Demineralization. No acute fracture. Moderate tricompartmental arthritis. Tiny joint effusion. Chondrocalcinosis. Small suprapatellar spur. Narrative 02/22/2025 5:15 AM CDT EXAM: DX KNEE RIGHT 4+ VIEWS Procedure Note Naldo Cm M.D. - 02/22/2025 EXAM: DX KNEE RIGHT 4+ VIEWS IMPRESSION: Demineralization. No acute fracture. Moderate tricompartmental arthritis.Tiny joint effusion. Chondrocalcinosis. Small suprapatellar spur. Nneka Yañez M.D. IMG DIAGNOSTIC IMAGING PROCEDURES Final Result * DX Wrist Right 3+ Views (02/22/2025 4:50 AM CDT) Anatomical Region Laterality Modality Upper Extremity, Wrist, Musc uloskeletal RST LOS, Musculoskeletal ARZ LOS, Muskuloskeletal FLA LOS Right Digit al Radiography Impressions 02/22/2025 5:16 AM CDT Spotty demineralization. No apparent fractures. Slight ulna minus variance. Chondrocalcinosis although to a much lesser degree than in 2017. Narrative 02/22/2025 5:16 AM CDT EXAM: DX WRIST RIGHT 3+ VIEWS Procedure Note Naldo Cm M.D. - 02/22/2025 EXAM: DX WRIST RIGHT 3+ VIEWS IMPRESSION: Spotty demineralization. No apparent fractures. Slight ulna minusvariance. Chondrocalcinosis although to a much lesser degree than [id number]. Nneka Yañez M.D. IMG DIAGNOSTIC IMAGING PROCEDURES Final Result * Bacteria / Bautista Culture, Blood #2 (02/22/2025 4:35 AM CDT) Bacteria/Vannessa da Culture, Blood No growth after 5 day/s of incubation. 02/27/2025 5:05 AM CDT [facility] Blood (Blood, Peripheral Draw) 02/22/2025 4:35 AM CDT 02/22/2025 4:48 AM CDT Comment:Specimen Source Site : Blood Nneka Yañez M.D. LAB MICROBIOLOG Y - GENERAL ORDERABLES Final Result Performing Organization Address [facility]/ZIP Co de Phone Number [facility] [address] [place] [address] * Lactate for Sepsis with Reflex (02/22/2025 4:28 AM CDT) Lactate, B 1.9 0.5 - 2.2 mmol/L 02/22/2025 5:01 AM CDT [facility] Blood (Blood, Venous) 02/22/2025 4:28 AM CDT 02/22/2025 4:48 AM CDT Nneka Yañez M.D. LAB BLOOD NON A DD-ON Final Result Performing Organization Address City/[facility]/ZIP Co de Phone Number [facility] [address] [place] [address] * Bacteria / Bautista Culture, Blood #1 (02/22/2025 4:28 AM CDT) Bacteria/Vannessa da Culture, Blood No growth after 5 day/s of incubation. 02/27/2025 5:05 AM CDT [facility] Blood (Blood, Peripheral Draw) 02/22/2025 4:28 AM CDT 02/22/2025 4:48 AM CDT Comment:Specimen Source Site : Blood Nneka Yañez M.D. LAB MICROBIOLOG Y - GENERAL ORDERABLES Final Result [facility] [address] [place] [address], [facility] [place] [address] [place] [address] * (ABNORMAL) Comprehensive Metabolic Panel (02/22/2025 4:28 AM CDT) Potassium, P 5.8(H) 3.6 - 5.2 mmol/L 02/22/2025 5:19 AM CDT [facility] Sodium, P 136 135 - 145 mmol/L 02/22/2025 5:19 AM CDT [facility] Chloride, P 104 98 - 107 mmol/L 02/22/2025 5:19 AM CDT [facility] Bicarbonate, P 17(L) 22 - 29 mmol/L 02/22/2025 5:19 AM CDT [facility] Anion Gap, P 15 7 - 15 02/22/2025 5:19 AM CDT [facility] BUN (Blood Urea Nitrogen), P 48(H) 8 - 24 mg/dL 02/22/2025 5:19 AM CDT [facility] Creatinine 1.98(H) 0.74 - 1.35 mg/dL 02/22/2025 5:19 AM CDT [facility] Estimated GFR (eGFR) 35(L) >=60 mL/min/BS A 02/22/2025 5:19 AM CDT [facility] Comment: Estimated GFR calculated using the 2020 CKD_EPI creatinine equation. Calcium, Total, P 9.6 8.8 - 10.2 mg/dL 02/22/2025 5:19 AM CDT [facility] Glucose, P 157(H) 70 - 140 mg/dL 02/22/2025 5:19 AM CDT [facility] Protein, Total, P 6.4 6.3 - 7.9 g/dL 02/22/2025 5:19 AM CDT [facility] Albumin, P 3.0(L) 3.5 - 5.0 g/dL 02/22/2025 5:19 AM CDT [facility] Aspartate Aminotransferase (AST), P 292(H) 8 - 48 U/L 02/22/2025 5:30 AM CDT [facility] Alkaline Phosphatase, P 1008(H) 40 - 129 U/L 02/22/2025 5:19 AM CDT [facility] Alanine Aminotransferase (ALT), P 195(H) 7 - 55 U/L 02/22/2025 5:19 AM CDT [facility] Bilirubin, Total, P 1.5(H) 0.0 - 1.2 mg/dL 02/22/2025 5:19 AM CDT [facility] Blood (Blood, Venous) 02/22/2025 4:28 AM CDT 02/22/2025 4:48 AM CDT us Nneka Yañez M.D. LAB BLOOD ADD-O N Final Result [facility] [address] [place] [address], [facility] [address] * (ABNORMAL) CBC with Differential, Blood (02/22/2025 4:28 AM CDT) Hemoglobin 10.1(L) 13.2 - 16.6 g/dL 02/22/2025 4:52 AM CDT [facility] Hematocrit 32.0(L) 38.3 - 48.6 % 02/22/2025 4:52 AM CDT [facility] Erythrocytes 3.92(L) 4.35 - 5.65 x10(12)/L 02/22/2025 4:52 AM CDT [facility] MCV 81.6 78.2 - 97.9 fL 02/22/2025 4:52 AM CDT [facility] RBC Distrib Width 17.9(H) 11.8 - 14.5 % 02/22/2025 4:52 AM CDT [facility] Platelet Count 231 135 - 317 x10(9)/L 02/22/2025 4:52 AM CDT [facility] Leukocytes 9.2 3.4 - 9.6 x10(9)/L 02/22/2025 4:52 AM CDT [facility] Neutrophils 7.78(H) 1.56 - 6.45 x10(9)/L 02/22/2025 4:52 AM CDT [facility] Lymphocytes 0.71(L) 0.95 - 3.07 x10(9)/L 02/22/2025 4:52 AM CDT [facility] Monocytes 0.54 0.26 - 0.81 x10(9)/L 02/22/2025 4:52 AM CDT [facility] Eosinophils 0.10 0.03 - 0.48 x10(9)/L 02/22/2025 4:52 AM CDT [facility] Basophils <0.03 0.01 - 0.08 x10(9)/L 02/22/2025 4:52 AM CDT [facility] Blood (Blood, Venous) 02/22/2025 4:28 AM CDT 02/22/2025 4:48 AM CDT us Nneka Yañez M.D. LAB BLOOD ADD-O N Final Result Performing Organization Address [facility] de Phone Number 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) Pressure Ulcer Of Unspecified Site Stage 4 (HCC) Weakness General Paraparesis Spastic (HCC) Paraplegia (HCC) 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) documented in this encounter Admitting Diagnoses Diagnosis Encephalopathy Metabolic documented in this encounter Administered Medications Inactive Administered Medications - up to 3 most recent administrations Medication Order MAR Action Action Date Dose Rate Site acetaminophen tablet 1,000 mg (TylenoL) 1,000 mg, oral, Every 6 hours PRN, fever, Starting on 02/22/25 at 1836 Given 02/23/2025 8:18 AM CDT 1,000 mg Given 02/22/2025 6:44 PM CDT 1,000 mg allopurinoL tablet 100 mg (Zyloprim) 100 mg, oral, Daily, First dose on 02/22/25 at 0900 Given 02/27/2025 8:15 AM CDT 100 mg Given 02/26/2025 8:59 AM CDT 100 mg Given 02/25/2025 8:12 AM CDT 100 mg apixaban tablet 5 mg (Eliquis) 5 mg, oral, 2 times daily, First dose on 02/22/25 at 0900 Given 02/27/2025 8:16 AM CDT 5 mg Given 02/26/2025 8:10 PM CDT 5 mg Given 02/26/2025 8:59 AM CDT [address] tablet 81 mg 81 mg, oral, Daily, First dose on 02/22/25 at 0900, Swallow whole. Do NOT crush, chew, or split tablet. Given 02/24/2025 8:37 AM CDT 81 mg Given 02/23/2025 8:18 AM CDT 81 mg atorvastatin tablet 80 mg (Lipitor) 80 mg, oral, Daily at bedtime, First dose on 02/22/25 at 2100 Given 02/26/2025 8:09 PM CDT 80 mg Given 02/24/2025 9:38 PM CDT 80 mg Given 02/23/2025 8:16 PM CDT 80 mg bacitracin 500 unit/gram ointment 1 Application 1 Application, topical, 2 times daily, First dose on 02/22/25 at 0900 Given 02/27/2025 8:14 AM CDT 1 Applicati on Given 02/26/2025 8:09 PM CDT 1 Application Given 02/26/2025 8:59 AM CDT 1 Application baclofen tablet 10 mg (LioresaL) 10 mg, oral, 2 times daily, First dose on 02/22/25 at 0900 Given 02/27/2025 8:15 AM CDT 10 mg Given 02/26/2025 8:10 PM CDT 10 mg Given 02/26/2025 8:59 AM CDT 10 mg D5W infusion 1-999 mL/hr, intravenous, As needed, Medications Incompatible with 0.9% NaCL, Starting on 02/22/25 at 0017, Infuse at the same rate as the piggyback until tubing clears or up to a volume of 20 mL pre and post infusion for medications incompatible with 0.9% NaCL. Use 50 mL bag then discard. diclofenac sodium 1 % gel 2 g (Voltaren) 2 g, topical, 4 times daily, First dose (after last modification) on 02/22/25 at 1200, Do not exceed 32 g per day, over all affected joints. Wrist pain, knee pain Use dosing card to measure product. 2 g = 2.25 inches, 4 gm = 4.5 inches. Rinse dosing card after use and save for each administration. Given 02/27/2025 8:15 AM CDT 2 g Given 02/26/2025 8:09 PM CDT 2 g Given 02/26/2025 4:09 PM CDT 2 g ertapenem injection 1 g (INVanz) 1 g, intravenous, Daily, First dose on 02/24/25 at 1515, For 6 doses, If needed, reconstitute vial per package insert instructions. See IVAG for administration guidelines., Restriction Criteria (Pharmacy will review and approve if criteria met): 1 dose prior to discharge, Drug Monitoring Program: Pharmacist to adjust medication dosing based on indication and drug clearance factors., Indications: Intra-abdominal infection, healthcare associatedIndications:Intra-abdominal infection, healthcare associated Given 02/27/2025 8:14 AM CDT 1 g Given 02/26/2025 8:59 AM CDT 1 g Given 02/25/2025 8:12 AM CDT 1 g fentaNYL injection 25 mcg (Sublimaze) 25 mcg, intravenous, Every 4 hours PRN, moderate pain or score 4-6 of 10, severe pain or score 7-10 of 10, Starting on Mon02/22/25 at 0143 Given 02/22/2025 2:08 AM CDT 25 mcg ferrous sulfate tablet 65 mg of iron 65 mg of iron, oral, Daily with morning meal, First dose on Mon02/22/25 at 0800 Given 02/27/2025 8:15 AM CDT 65 mg of iron Given 02/26/2025 8:59 AM CDT 65 mg of iron Given 02/25/2025 8:13 AM CDT 65 mg of iron furosemide tablet 40 mg (Lasix) 40 mg, oral, Every morning, First dose on Mon02/26/25 at 0900 Given 02/27/2025 8:15 AM CDT 40 mg Given 02/26/2025 8:59 AM CDT 40 mg haloperidol lactate injection 2 mg (HaldoL) 2 mg, intramuscular, Once, On Mon02/22/25 at 0400, For 1 dose Given 02/22/2025 3:42 AM CDT 2 mg Right Deltoid insulin aspart U-100 injection 0-7 Units (NovoLOG FlexPen) 0-7 Units, subcutaneous, 3 times daily, First dose on Mon02/22/25 at 0800, Insulin Scale: Mild Correction Scale, 180 - 219: 2 units, 220 - 259: 3 units, 260 - 299: 4 units, 300 - 339: 5 units, 340 - 379: 6 units, 380 - 399: 7 units, Greater than 399: Call service writing Insulin orders iohexoL 350 mg iodine/mL solution (Omnipaque) As needed, Starting on Mon02/22/25 at 1608, Intra-Op Given 02/22/2025 4:08 PM CDT 10 mL Lactated Ringer's bolus 500 mL 500 mL, intravenous, at 500 mL/hr, Administer over 1 Hours, Once, On Mon02/22/25 at 1900, For 1 dose New Bag 02/22/2025 6:50 PM CDT 500 mL 500 mL/hr Lactated Ringer's bolus 500 mL 500 mL, intravenous, at 500 mL/hr, Administer over 1 Hours, Once, On 02/23/25 at 0215, For 1 dose New Bag 02/23/2025 1:53 AM CDT 500 mL 500 mL/hr Lactated Ringer's 75 mL/hr, intravenous, Continuous, Starting on 02/22/25 at 0845, For 24 hours New Bag 02/22/2025 10:33 AM CDT 75 mL/hr 75 mL/hr Lactated Ringer's 100 mL/hr, intravenous, Continuous, Starting on 02/22/25 at 1215, For 24 hours New Bag 02/23/2025 7:22 AM CDT 100 mL/hr 100 mL/hr Restarted 02/23/2025 2:57 AM CDT 100 mL/hr 100 mL/hr New Bag 02/23/2025 1:40 AM CDT 100 mL/hr 100 mL/hr Lactated Ringer's 50 mL/hr, intravenous, Continuous, Starting on [place] 02/23/25 at 1145, For 24 hours Rate/Dose Verify 02/24/2025 2:00 AM CDT 50 mL/hr 50 mL/hr New Bag 02/24/2025 12:13 AM CDT 50 mL/hr 50 mL/hr Rate/Dose Change 02/23/2025 12:07 PM CDT 50 mL/hr 50 mL/ hr latanoprost 0.005 % ophthalmic solution 1 drop (Xalatan) 1 drop, both eyes, Daily, First dose on 02/22/25 at 2100 Given 02/26/2025 8:09 PM CDT 1 drop Given 02/25/2025 9:19 PM CDT 1 drop Given 02/24/2025 9:42 PM CDT 1 drop lidocaine (PF) 10 mg/mL (1 %) injection 10 mL (Xylocaine) 10 mL, injection, Once, On 02/22/25 at 1300, For 1 dose Given 02/22/2025 12:38 PM CDT 1 mL lisinopriL tablet 40 mg 40 mg, oral, Daily, First dose on Mon02/26/25 at 0900 Given 02/27/2025 8:15 AM CDT 40 mg Given 02/26/2025 8:59 AM CDT 40 mg loratadine tablet 10 mg (Claritin) 10 mg, oral, Daily at bedtime, First dose on 02/22/25 at 0200, loratadine 10 mg oral daily was interchanged for cetirizine 5 mg oral twice daily, Drug Monitoring Program: Pharmacist to adjust medication dosing based on indication and drug clearance factors. Given 02/26/2025 8:10 PM CDT 10 mg Given 02/25/2025 9:15 PM CDT 10 mg Given 02/24/2025 9:39 PM CDT 10 mg melatonin tablet 4.5 mg 4.5 mg (rounded from 5 mg), oral, Bedtime PRN, for sleep, Starting on 02/22/25 at 0133 Given 02/22/2025 2:09 AM CDT 4.5 mg melatonin tablet 4.5 mg 4.5 mg (rounded from 5 mg), oral, Daily at bedtime, First dose (after last modification) on 02/24/25 at 2100 Given 02/26/2025 8:09 PM CDT 4.5 mg Given 02/25/2025 9:15 PM CDT 4.5 mg Given 02/24/2025 9:39 PM CDT 4.5 mg meropenem 500 mg in NaCl 0.9% IVPB (Merrem) 500 mg, intravenous, at 100 mL/hr, Administer over 30 Minutes, Every 8 hours scheduled, First dose (after last modification) on 02/22/25 at 2100, Mini-Bag Plus bag, Restriction Criteria (Pharmacy will review and approve if criteria met): Gram negative organism resistant to other options, Drug Monitoring Program: Pharmacist to adjust medication dosing based on indication and drug clearance factors., Indications: Bone and/or joint infection, Lower UTI, catheter, Skin and soft tissue infectionIndications:Bone and/or joint infection,Lower UTI, catheter,Skin and soft tissue infection New Bag 02/24/2025 1:47 PM CDT 500 mg 100 mL/hr New Bag 02/24/2025 7:05 AM CDT 500 mg 100 mL/hr New Bag 02/23/2025 9:55 PM CDT 500 mg 100 mL/hr meropenem injection 500 mg (Merrem) 500 mg, intravenous, Every 6 hours scheduled, First dose on 02/22/25 at 0300, If needed, reconstitute vial per package insert instructions. See IVAG for administration guidelines., Restriction Criteria (Pharmacy will review and approve if criteria met): Gram negative organism resistant to other options, Drug Monitoring Program: Pharmacist to adjust medication dosing based on indication and drug clearance factors., Indications: Bone and/or joint infection, Lower UTI, catheter, Skin and soft tissue infectionIndications:Bone and/or joint infection,Lower UTI, catheter,Skin and soft tissue infection Given 02/22/2025 12:13 PM CDT 500 mg Given 02/22/2025 4:32 AM CDT 500 mg metoprolol tartrate tablet 50 mg (Lopressor) 50 mg, oral, 2 times daily, First dose on 02/23/25 at 0900, Hold if SBP < 100 or HR < 55 Given 02/27/2025 8:15 AM CDT 50 mg Given 02/26/2025 8:10 PM CDT 50 mg Given 02/26/2025 8:59 AM CDT 50 mg metroNIDAZOLE in NaCl (iso osm) IVPB 500 mg (FlagyL) 500 mg, intravenous, at 200 mL/hr, Administer over 30 Minutes, Every 8 hours scheduled, First dose on 02/22/25 at 0300, Drug Monitoring Program: Pharmacist to adjust medication dosing based on indication and drug clearance factors., Indications: Bone and/or joint infection, Skin and soft tissue infectionIndications:Bone and/or joint infection,Skin and soft tissue infection New Bag 02/22/2025 4:32 AM CDT 500 mg 200 mL/hr NaCl 0.9% infusion 1-999 mL/hr, intravenous, As needed, Between Consecutive Piggyback Medications, Starting on 02/22/25 at 0017, For 7 days, Infuse at the same rate as the piggyback until tubing clears or up to a volume of 20 mL. Select for IV medication administration when no maintenance IV available or when IV medications are not compatible with maintenance fluid. NaCl 0.9% infusion 1-999 mL/hr, intravenous, As needed, Post Medications (Hazardous/Low Fluid Volume), Starting on 02/22/25 at 0017, For 7 days, Infuse at the same rate as the medication until tubing cleared of medication, then discard. NaCl 0.9% infusion 75 mL/hr, intravenous, Continuous, Starting on 02/22/25 at 0200, For 12 hours Rate/Dose Verify 02/22/2025 5:38 AM CDT 75 mL/hr 75 mL/hr Restarted 02/22/2025 4:25 AM CDT 75 mL/hr 75 mL/hr New Bag 02/22/2025 2:09 AM CDT 75 mL/hr 75 mL/hr NIFEdipine XL 24 hr tablet 60 mg (Procardia XL) 60 mg, oral, Daily, First dose (after last modification) on 02/22/25 at 0900, Hold if SBP < 110 Swallow whole. Do NOT crush, chew, or split tablet., On hold since 02/23/2025 at 0717 until manually unheld Given 02/22/2025 9:44 AM CDT 60 mg oxyCODONE IR tablet 2.5 mg (Roxicodone) 2.5 mg, oral, Every 6 hours PRN, severe pain or score 7-10 of 10, Starting on 02/22/25 at 1034 Given 02/26/2025 12:52 PM CDT 2.5 mg Given 02/22/2025 8:43 PM CDT 2.[address] tablet 40 mg (Protonix) 40 mg, oral, 2 times daily before morning and evening meals, First dose on 02/22/25 at 0700, Swallow whole. Do NOT crush, chew, or split tablet. Given 02/27/2025 5:44 AM CDT 40 mg Given 02/26/2025 4:09 PM CDT 40 mg Given 02/26/2025 6:20 AM CDT 40 mg sennosides tablet 8.6 mg (Senokot) 8.6 mg, oral, 2 times daily, First dose on 02/22/25 at 0900 Given 02/27/2025 8:24 AM CDT 8.6 mg Given 02/26/2025 8:09 PM CDT 8.6 mg Given 02/26/2025 8:59 AM CDT 8.6 mg sodium chloride 0.9 % injection 10 mL 10 mL, intravenous, As needed, line care, Peripheral Intravenous Catheter and Rapid Infusion Catheter, Starting on 02/22/25 at 0017, Prior to blood sampling, post blood transfusion or post blood sampling. sodium chloride 0.9 % injection 3 mL 3 mL, intravenous, As needed, line care, Peripheral Intravenous Catheter and Rapid Infusion Catheter, Starting on 02/22/25 at 0017, Prior to and following infusion and between multiple consecutive infusions. sodium chloride 0.9 % injection 3 mL 3 mL, intravenous, Every 24 hours scheduled, First dose on 02/22/25 at 0900, Peripheral Intravenous Catheter and Rapid Infusion Catheter: When no infusion to maintain patency. Given 02/27/2025 8 :15 AM CDT 3 mL Given 02/26/2025 9:00 AM CDT 3 mL Given 02/25/2025 8:14 AM CDT 3 mL sodium zirconium cyclosilicate 10 gram packet 10 g (Lokelma) 10 g, oral, Once, On 02/22/25 at 0545, For 1 dose Given 02/22/2025 5:42 AM CDT 10 g documented in this encounter Active and Recently Administered Medications Times are shown in CDT. Scheduled Medication Order 02/25/2025 02/26/2025 02/27/2025 allopurinoL tablet 100 mg (Zyloprim) 100 mg, oral, Daily, First dose on 02/22/25 at 0900 0812 (Given - Provider: Iris Garcia R.N.) 0859 (Given - Provider: Acacia Archer R.N.) 0815 (Given - Provider: Iris Figueredo R.N.) apixaban tablet 5 mg (Eliquis) 5 mg, oral, 2 times daily, First dose on 02/22/25 at 0900 0813 (Given - Provider: Iris Garcia R.N.)2113 (Given - Provider: Aislinn Isbell) 0859 (Given - Provider: Acacia Archer R.N.)2009 (Given - Provider: Jaclyn Gates) 0816 (Given - Provider: Iris Figueredo R.N.) atorvastatin tablet 80 mg (Lipitor) 80 mg, oral, Daily at bedtime, First dose on 02/22/25 at 2100 211 (Not Given - Provider: Aislinn Isbell - Reason: Patient/family refused) 2008 (Given - Provider: Jaclyn Gates) bacitracin 500 unit/gram ointment 1 Application 1 Application, topical, 2 times daily, First dose on 02/22/25 at 0900 0813 (Given - Provider: Iris Garcia R.N.)2117 (Given - Provider: Aislinn Isbell) 08 (Given - Provider: Acacia Archer R.N.)2008 (Given - Provider: Jaclyn Gates) 0814 (Given - Provider: Iris Figueredo R.N.) baclofen tablet 10 mg (LioresaL) 10 mg, oral, 2 times daily, First dose on 02/22/25 at 0900 0813 (Given - Provider: Iris Garcia R.N.)2114 (Given - Provider: Aislinn Isbell) 08 (Given - Provider: Acacia Archer R.N.)2009 (Given - Provider: Jaclyn Gates) 08 (Given - Provider: Iris Figueredo R.N.) diclofenac sodium 1 % gel 2 g (Voltaren) 2 g, topical, 4 times daily, First dose (after last modification) on 02/22/25 at 1200, Do not exceed 32 g per day, over all affected joints. Wrist pain, knee pain Use dosing card to measure product. 2 g = 2.25 inches, 4 gm = 4.5 inches. Rinse dosing card after use and save for each administration. 0813 (Given - Provider: Iris Garcia R.N.)1224 (Not Given - Provider: Iris Garcia R.N. - Reason: Patient/family refused)1732 (Not Given - Provider: Iris Garcia R.N. - Reason: Patient/family refused)2118 (Given - Provider: Aislinn Isbell) 08 (Given - Provider: Acacia Archer R.N.)115 (Given - Provider: Shayna Noriega R.N.)160 (Given - Provider: Shayna Noriega R.N.)2008 (Given - Provider: Jaclyn Gates) 0815 (Given - Provider: Iris Figueredo R.N.)1200 (Due) ertapenem injection 1 g (INVanz) 1 g, intravenous, Daily, First dose on Mon02/24/25 at 1515, For 6 doses, If needed, reconstitute vial per package insert instructions. See IVAG for administration guidelines., Restriction Criteria (Pharmacy will review and approve if criteria met): 1 dose prior to discharge, Drug Monitoring Program: Pharmacist to adjust medication dosing based on indication and drug clearance factors., Indications: Intra-abdominal infection, healthcare associated 0812 (Given - Provider: Iris Garcia R.N.) 0859 (Given - Provider: Acacia Archer R.N.) 0814 (Given - Provider: Iris Figueredo R.N.) ferrous sulfate tablet 65 mg of iron 65 mg of iron, oral, Daily with morning meal, First dose on Mon02/22/25 at 0800 0813 (Given - Provider: Iris Garcia R.N.) 0859 (Given - Provider: Acacia Archer R.N.) 0815 (Given - Provider: Iris Figueredo R.N.) furosemide tablet 40 mg (Lasix) 40 mg, oral, Every morning, First dose on Mon02/26/25 at 0900 0859 (Given - Provider: Acacia Archer R.N.) 0815 (Given - Provider: Iris Figueredo R.N.) insulin aspart U-100 injection 0-7 Units (NovoLOG FlexPen) 0-7 Units, subcutaneous, 3 times daily, First dose on 02/22/25 at 0800, Insulin Scale: Mild Correction Scale, 180 - 219: 2 units, 220 - 259: 3 units, 260 - 299: 4 units, 300 - 339: 5 units, 340 - 379: 6 units, 380 - 399: 7 units, Greater than 399: Call service writing Insulin orders 0756 (Not Given - Provider: Iris Garcia R.N. - Reason: Order parameters not met)1154 (Not Given - Provider: Iris Garcia R.N. - Reason: Order parameters not met)1623 (Not Given - Provider: Iris Garcia R.N. - Reason: Order parameters not met) 0751 (Not Given - Provider: Aeriel K Jore, R.N. - Reason: Order parameters not met - Comment: bg [phone] (Not Given - Provider: Shayna Noriega R.N. - Reason: Order parameters not met - Comment: BS: 144)1608 (Not Given - Provider: Shayna Noriega R.N. - Reason: Order parameters not met - Comment: BS: 168) 0801 (Not Given - Provider: Iris Figueredo R.N. - Reason: Order parameters not met - Comment: [phone] (Due) latanoprost 0.005 % ophthalmic solution 1 drop (Xalatan) 1 drop, both eyes, Daily, First dose on 02/22/25 at 2100 2119 (Given - Provider: Aislinn Isbell) 2008 (Given - Provider: Jaclyn Gates) lidocaine 10 mg/mL (1 %) injection 0-10 mL (Xylocaine) 0-10 mL, intradermal, Once, On Jayla 02/27/25 at 0930, For 1 dose, Administer intradermally prior to midline placement. Patient 18 years and older - 1 mL (may repeat twice up to 1 mL each midline insertion attempt if patient complains or pain or discomfort at injection site. 0930 (Due) lisinopriL tablet 40 mg 40 mg, oral, Daily, First dose on Mon02/26/25 at 0900 0859 (Given - Provider: Acacia Archer RAmparoN.) 0815 (Given - Provider: Iris Figueredo RAmparoN.) loratadine tablet 10 mg (Claritin) 10 mg, oral, Daily at bedtime, First dose on 02/22/25 at 0200, loratadine 10 mg oral daily was interchanged for cetirizine 5 mg oral twice daily, Drug Monitoring Program: Pharmacist to adjust medication dosing based on indication and drug clearance factors. 2114 (Given - Provider: Aislinn Isbell) 2009 (Given - Provider: Jaclyn Gates) melatonin tablet 4.5 mg 4.5 mg (rounded from 5 mg), oral, Daily at bedtime, First dose (after last modification) on 02/24/25 at 2100 2115 (Given - Provider: Aislinn Isbell) 2008 (Given - Provider: Jaclyn Gates) metoprolol tartrate tablet 50 mg (Lopressor) 50 mg, oral, 2 times daily, First dose on 02/23/25 at 0900, Hold if SBP < 100 or HR < 55 08 (Given - Provider: Iris Garcia R.N.)2114 (Given - Provider: Aislinn Isbell) 858 (Given - Provider: Acacia Archer R.N.)2009 (Given - Provider: Jaclyn Gates) 08 (Given - Provider: Iris Figueredo R.N.) pantoprazole DR tablet 40 mg (Protonix) 40 mg, oral, 2 times daily before morning and evening meals, First dose on 02/22/25 at 0700, Swallow whole. Do NOT crush, chew, or split tablet. 0614 (Given - Provider: Spring Salmeron RFiliberto)1501 (Given - Provider: Iris Garcia R.N.) 0620 (Given - Provider: Aislinn Isbell)1609 (Given - Provider: Shayna Noriega RFiliberto) 0544 (Given - Provider: Renita Vilchis RAmparoNAmparo) sennosides tablet 8.6 mg (Senokot) 8.6 mg, oral, 2 times daily, First dose on 02/22/25 at 0900 08 (Not Given - Provider: Iris Garcia R.N. - Reason: Patient/family refused)2113 (Given - Provider: Aislinn Isbell) 858 (Given - Provider: Acacia Archer R.N.)2008 (Given - Provider: Jaclyn Gates) 08 (Given - Provider: Iris Figueredo R.N.) sodium chloride 0.9 % injection 10-30 mL 10-30 mL, intravenous, Once, On Jayla 02/27/25 at 0930, For 1 dose, 10 mL flush to each lumen 0930 (Due) sodium chloride 0.9 % injection 3 mL 3 mL, intravenous, Every 24 hours scheduled, First dose on 02/22/25 at 0900, Peripheral Intravenous Catheter and Rapid Infusion Catheter: When no infusion to maintain patency. 0814 (Given - Provider: Iris M Langemo, R.N.) 0900 (Given - Provider: Acacia Archer R.N.) 0815 (Given - Provider: Iris Figueredo R.N.) PRN Medication Order 02/25/2025 02/26/2025 02/27/2025 acetaminophen tablet 1,000 mg (TylenoL) 1,000 mg, oral, Every 6 hours PRN, fever, Starting on 02/22/25 at 1836 D5W infusion 1-999 mL/hr, intravenous, As needed, Medications Incompatible with 0.9% NaCL, Starting on 02/22/25 at 0017, Infuse at the same rate as the piggyback until tubing clears or up to a volume of 20 mL pre and post infusion for medications incompatible with 0.9% NaCL. Use 50 mL bag then discard. fentaNYL injection 25 mcg (Sublimaze) 25 mcg, intravenous, Every 4 hours PRN, moderate pain or score 4-6 of 10, severe pain or score 7-10 of 10, Starting on 02/22/25 at 0143 NaCl 0.9% infusion 1-999 mL/hr, intravenous, As needed, Between Consecutive Piggyback Medications, Starting on 02/22/25 at 0017, For 7 days, Infuse at the same rate as the piggyback until tubing clears or up to a volume of 20 mL. Select for IV medication administration when no maintenance IV available or when IV medications are not compatible with maintenance fluid. NaCl 0.9% infusion 1-999 mL/hr, intravenous, As needed, Post Medications (Hazardous/Low Fluid Volume), Starting on 02/22/25 at 0017, For 7 days, Infuse at the same rate as the medication until tubing cleared of medication, then discard. ondansetron (PF) injection 4 mg (Zofran) 4 mg, intravenous, Every 6 hours PRN, nausea, vomiting, Starting on 02/22/25 at 0143 oxyCODONE IR tablet 2.5 mg (Roxicodone) 2.5 mg, oral, Every 6 hours PRN, severe pain or score 7-10 of 10, Starting on 02/22/25 at 1034 1252 (Given - Provider: Shayna Noriega R.N.) polyethylene glycol powder packet 17 g (Miralax) 17 g, oral, Daily PRN, constipation, Starting on 02/22/25 at 0133, Dissolve in 240 mLs (8 ounces) of water prior to giving. Avoid mixing with starch-based thickened liquids. sennosides-docusate sodium 8.6-50 mg per tablet 1 tablet (Senokot-S) 1 tablet, oral, 2 times daily PRN, constipation, Starting on 02/22/25 at 0133 sodium chloride 0.9 % injection 10 mL 10 mL, intravenous, As needed, line care, Peripheral Intravenous Catheter and Rapid Infusion Catheter, Starting on 02/22/25 at 0017, Prior to blood sampling, post blood transfusion or post blood sampling. sodium chloride 0.9 % injection 3 mL 3 mL, intravenous, As needed, line care, Peripheral Intravenous Catheter and Rapid Infusion Catheter, Starting on 02/22/25 at 0017, Prior to and following infusion and between multiple consecutive infusions. documented in this encounter Additional Health Concerns Infection Onset Date Last Indicated Resolved Time COVID19 Pending 02/22/2025 02/22/2025 02/22/2025 6 :40 AM CDT Assessment Noted Time PHQ-9 Depression Total Score: 10 018 11:00 AM CDT documented as of this encounter Care Teams [employer] Relationship Specialty Start Date End Date Jeff Reyes M.D. [address] [id number] PCP - General 03/14/24 documented as of this encounter
--- OUTSIDE RECORDS SUMMARY | 2025-02-22 00:35 | XMS_ITS | Encounter Summary ---
Author Organization [facility] Address [address] [place] [address] Care Team Providers Care Wind Turbine Service Technician Name Role Phone Jeff Reyes M.D. Primary Care Provider [phone] Encounter Details Date Type Department Care Team [...] daily living? Patient unable to answer 02/22/2025 [facility] Utilities Answer Date Recorded In the past 12 months has th [employer] electric, gas, oil, or water company threatened [...] Sex Assigned at Male 06/26/2018 4:20 PM LINK WIRE FABRIC MACHINE OPERATOR Legal Sex Male 3:33 AM LINK WIRE FABRIC MACHINE OPERATOR Gender Identity Not on file Sexual Orientation Not on file documented as of this encounter Plan of Treatment Upcoming Encounters Date Type Department Care Team (Latest Contact Info) Description 04/11/2025 10:00 AM CDT Hospital Encounter Department of Radiology in [address] [phone] Anuel Nunn M.D. [address] [place] [phone] Qasim Rader M.D. [address] [place] [phone] 04/28/2025 1:00 PM CDT Comprehensive Visit Department of General Surgery in [address] [phone] Roland Benson D.O. [address] [place] [phone] Discharge Disposition: Home or Self Care documented [...] documented as of this encounter Care Teams Wind Turbine Service Technician Relationship Specialty Start Date End Date Jeff [place] [phone] PCP - General 03/14/24 documented as of this encounter
--- OUTSIDE RECORDS SUMMARY | 2025-02-24 11:15 | XMS_ITS | Encounter Summary ---
Author Organization [facility] Address [address] [place] [address] Care Team Providers Care Hospice Clinical Manager Name Role Phone Jeff Reyes M.D. Primary Care Provider [phone] Encounter Details Date Type Department Care Team [...] daily living? Patient unable to answer 02/22/2025 [facility] Utilities Answer Date Recorded In the past 12 months has th [employer] electric, gas, oil, or water company threatened [...] Sex Assigned at Male 06/26/2018 4:20 PM ACID PUMPER Legal Sex Male 3:33 AM ACID PUMPER Gender Identity Not on file Sexual Orientation Not on file documented as of this encounter Plan of Treatment Upcoming Encounters Date Type Department Care Team (Latest Contact Info) Description 04/11/2025 10:00 AM CDT Hospital Encounter Department of Radiology in [address] [address] Anuel Nunn M.D. [address] [place] [phone] Qasim Rader M.D. [address] [place] [phone] 04/28/2025 1:00 PM CDT Comprehensive Visit Department of General Surgery in [address] [address] Roland Benson D.O. [address] [place] [phone] Discharge Disposition: Home or Self Care documented [...] documented as of this encounter Care Teams Hospice Clinical Manager Relationship Specialty Start Date End Date Jeff Reyes M.D. [address] [place] [address] PCP - General 03/14/24 documented as of this encounter
--- OUTSIDE RECORDS SUMMARY | 2025-02-24 11:20 | XMS_ITS | Encounter Summary ---
Author Organization [facility] Address [address] [place] [address] Care Team Providers Care Advertising Sales Representative Name Role Phone Jeff Reyes M.D. Primary Care Provider [phone] Encounter Details Date Type Department Care Team [...] daily living? Patient unable to answer 02/22/2025 [facility] Utilities Answer Date Recorded In the past 12 months has th [employer] electric, gas, oil, or water company threatened [...] Assigned at Male 06/26/2018 4:20 PM SENIOR INFORMATICA ETL DEVELOPER Legal Sex Male 3:33 AM SENIOR INFORMATICA ETL DEVELOPER Gender Identity Not on file Sexual Orientation Not on file documented as of this encounter Plan of Treatment Upcoming Encounters Date Type Department Care Team (Latest Contact Info) Description 04/11/2025 10:00 AM CDT Hospital Encounter Department of Radiology in [address] [address] Anuel Nunn M.D. [address] [place] [phone] Qasim Rader M.D. [address] [place] [phone] 04/28/2025 1:00 PM CDT Comprehensive Visit Department of General Surgery in [address] [address] Roland Benson D.O. [address] [place] [phone] Discharge Disposition: Home or Self Care documented [...] documented as of this encounter Care Teams Advertising Sales Representative Relationship Specialty Start Date End Date Jeff Reyes M.D. [address] [place] [address] PCP - General 03/14/24 documented as of this encounter
--- OUTSIDE RECORDS SUMMARY | 2025-02-24 11:25 | XMS_ITS | Encounter Summary ---
Author Organization [facility] Address [address] [place] [address] Care Team Providers Care Production Or Plant Engineer Name Role Phone Jeff Reyes M.D. Primary Care Provider [phone] Encounter Details Date Type Department Care Team (Late st Contact Info) Description 02/24/2025 11:25 AM CDT Ancillary Procedure Department of Wound [...] daily living? Patient unable to answer 02/22/2025 [facility] Utilities Answer Date Recorded In the past 12 months has th [employer] electric, gas, oil, or water company threatened [...] Sex Assigned at Male 06/26/2018 4:20 PM ROBOTIC MAINTENANCE TECHNICIAN Legal Sex Male 3:33 AM ROBOTIC MAINTENANCE TECHNICIAN Gender Identity Not on file Sexual Orientation Not on file documented as of this encounter Plan of Treatment Upcoming Encounters Date Type Department Care Team (Latest Contact Info) Description 04/11/2025 10:00 AM CDT Hospital Encounter Department of Radiology in [address] [address] Anuel Nunn M.D. [address] [place] [phone] Qasim Rader M.D. [address] [place] [phone] 04/28/2025 1:00 PM CDT Comprehensive Visit Department of General Surgery in [address] [address] Roland Benson D.O. [address] [place] [phone] Discharge Disposition: Home or Self Care documented as of this encounter Procedures Procedure Name Priority Date/Time Associated Diagnosis Comments WOUND OSTOMY IMAGE EXAM Routine 02/24/2025 11:17 AM CDT documented in this encounter Results * Buttocks 527a-Wound Ostomy Image Exam (02/24/2025 11:17 AM CDT) [...] documented as of this encounter Care Teams Production Or Plant Engineer Relationship Specialty Start Date End Date Jeff Reyes M.D. [address] [place] [address] PCP - General 03/14/24 documented as of this encounter
--- OUTSIDE RECORDS SUMMARY | 2025-02-26 13:15 | XMS_ITS | Encounter Summary ---
Author Organization [facility] Address [address] [place] [address] Care Team Providers Care Nursery Attendant Name Role Phone Jeff Reyes M.D. Primary Care Provider [phone] Encounter Details Date Type Department Care Team [...] daily living? Patient unable to answer 02/27/[address] [facility] Utilities Answer Date Recorded In the past 12 months has th [employer] electric, gas, oil, or water company threatened [...] Sex Assigned at Male 06/26/2018 4:20 PM RAISED PRINTER Legal Sex Male 3:33 AM RAISED PRINTER Gender Identity Not on file Sexual Orientation Not on file documented as of this encounter Plan of Treatment Upcoming Encounters Date Type Department Care Team (Latest Contact Info) Description 04/11/2025 10:00 AM CDT Hospital Encounter Department of Radiology in [address] [address] Anuel Nunn M.D. [address] [place] [phone] Qasim Rader M.D. [address] [place] [phone] 04/28/2025 1:00 PM CDT Comprehensive Visit Department of General Surgery in [address] [address] Roland Benson D.O. [address] [place] [phone] Discharge Disposition: Home or Self Care documented [...] documented as of this encounter Care Teams Nursery Attendant Relationship Specialty Start Date End Date Jeff Reyes M.D. [address] [place] [address] PCP - General 03/14/24 documented as of this encounter
--- OUTSIDE RECORDS SUMMARY | 2025-02-26 13:40 | XMS_ITS | Encounter Summary ---
Author Organization [facility] Address [address] [place] [address] Care Team Providers Care Liquefied Petroleum Gasfitter Name Role Phone Jeff Reyes M.D. Primary Care Provider [phone] Encounter Details Date Type Department Care Team [...] Patient unable to answer 02/27/2025 [facility] Utilities Answer Date Recorded In the past 12 months has th [employer] electric, gas, oil, or water company threatened [...] Sex Assigned at Male 06/26/2018 4:20 PM CHOCOLATE FINISHER Legal Sex Male 3:33 AM CHOCOLATE FINISHER Gender Identity Not on file Sexual Orientation Not on file documented as of this encounter Plan of Treatment Upcoming Encounters Date Type Department Care Team (Latest Contact Info) Description 04/11/2025 10:00 AM CDT Hospital Encounter Department of Radiology in [address] [address] Anuel Nunn M.D. [address] [place] [phone] Qasim Rader M.D. [address] [place] [phone] 04/28/2025 1:00 PM CDT Comprehensive Visit Department of General Surgery in [address] [address] Roland Benson D.O. [address] [place] [phone] Discharge Disposition: Home or Self Care documented [...] documented as of this encounter Care Teams Liquefied Petroleum Gasfitter Relationship Specialty Start Date End Date Jeff Reyes M.D. [address] [place] [address] PCP - General 03/14/24 documented as of this encounter
--- OUTSIDE RECORDS SUMMARY | 2025-02-26 13:45 | XMS_ITS | Encounter Summary ---
Author Organization [facility] Address [address] [place] [address] Care Team Providers Care Solar Thermal Installer Name Role Phone Jeff Reyes M.D. Primary Care Provider [phone] Encounter Details Date Type Department Care Team (Late st Contact Info) Description 02/26/2025 1:45 PM CDT Ancillary Procedure Department of Wound [...] daily living? Patient unable to answer 02/27/2025 [facility] Utilities Answer Date Recorded In the past 12 months has th [employer] electric, gas, oil, or water company threatened [...] Sex Assigned at Male 06/26/2018 4:20 PM FUNDING SPECIALIST Legal Sex Male 3:33 AM FUNDING SPECIALIST Gender Identity Not on file Sexual Orientation Not on file documented as of this encounter Plan of Treatment Upcoming Encounters Date Type Department Care Team (Latest Contact Info) Description 04/11/2025 10:00 AM CDT Hospital Encounter Department of Radiology in [address] [address] Anuel Nunn M.D. [address] [place] [phone] Qasim Rader M.D. [address] [place] [phone] 04/28/2025 1:00 PM CDT Comprehensive Visit Department of General Surgery in [address] [address] Roland Benson D.O. [address] [place] [phone] Discharge Disposition: Home or Self Care documented as of this encounter Procedures Procedure Name Priority Date/Time Associated Diagnosis Comments WOUND OSTOMY IMAGE EXAM Routine 02/26/2025 1:41 PM CDT documented in this encounter Results * Foot left medial heel 445-Wound Ostomy Image Exam (02/26/2025 1:41 PM CDT) 02/26/2025 1:39 PM CDT Narrative [...] documented as of this encounter Care Teams Solar Thermal Installer Relationship Specialty Start Date End Date Jeff Reyes M.D. [address] [place] [address] PCP - General 03/14/24 documented as of this encounter
--- OUTSIDE RECORDS SUMMARY | 2025-02-27 09:45 | XMS_ITS | Encounter Summary ---
Author Organization [facility] Address [address] [place] [address] Care Team Providers Care Template Checker Name Role Phone Jeff Reyes M.D. Primary Care Provider [phone] Encounter Details Date Type Department Care Team [...] daily living? Patient unable to answer 02/27/2025 [facility] Utilities Answer Date Recorded In the past 12 months has th [employer] electric, gas, oil, or water company threatened [...] Assigned at Male 06/26/2018 4:20 PM SENIOR ACCOUNTING SPECIALIST Legal Sex Male 3:33 AM SENIOR ACCOUNTING SPECIALIST Gender Identity Not on file Sexual Orientation Not on file documented as of this encounter Plan of Treatment Upcoming Encounters Date Type Department Care Team (Latest Contact Info) Description 04/11/2025 10:00 AM CDT Hospital Encounter Department of Radiology in [address] [phone] Anuel Nunn M.D. [address] [place] [phone] Qasim Rader M.D. [address] [place] [phone] 04/28/2025 1:00 PM CDT Comprehensive Visit Department of General Surgery in [address] [phone] Roland Benson D.O. [address] [place] [phone] Discharge Disposition: Home or Self Care documented [...] documented as of this encounter Care Teams Template Checker Relationship Specialty Start Date End Date Jeff Reyes M.D. [address] [place] [phone] PCP - General 03/14/24 documented as of this encounter
--- OUTSIDE RECORDS SUMMARY | 2025-03-04 08:29 | XMS_ITS | Encounter Summary ---
Author Organization [facility] Address [address] [place] [address] Care Team Providers Care Beamer Hand Name Role Phone Jeff Reyes M.D. Primary Care Provider [phone] Reason for Referral * MRI/CAT/PET Scan (Routine) - Closed Specialty Diagnoses / Procedures Referred By Jono donohue Referred To Contact Radiology Diagnoses Embolus Pulmonary (HCC) Procedures CT Chest Angiogram and Pulmonary Arteries with IV Contrast CT Chest Angiogram with IV Contrast Pablo Vo M.D. [address] [place] [address] Phone: tel: fax: [facility] Region Referral ID Status Reason Start Date Expiration Date Visits Re quested Visits Authorized [id number] Closed 11/14/2024 02/14/2026 1 1 Reason for Visit * MRI/CAT/PET Scan (Routine) - Closed Specialty Diagnoses / Procedures Referred By Jono donohue Referred To Contact Radiology Diagnoses Embolus Pulmonary (HCC) Procedures CT Chest Angiogram and Pulmonary Arteries with IV Contrast CT Chest Angiogram with IV Contrast Pablo Vo M.D. [address] [place] [address] Phone: tel: fax: [facility] Region Referral ID Status Reason Start Date Expiration Date Visits Re quested Visits Authorized [id number] Closed 11/14/2024 02/14/2026 1 1 Encounter Details Date Type Department Care Team (Latest Contact Info) Description 03/04/2025 8:29 AM CDT - 03/04/2025 11:59 PM CDT Hospital Encounter Department of Radiology in [place], [place] [address] [place] [address] Pablo Vo M.D. [address] [place] [phone] Embolus Pulmonary (HCC) Discharge Disposition: Home or [...] daily living? 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 [address] [place] [phone] Qasim Rader M.D. [address] [place] [phone] 04/28/2025 1:00 PM CDT Comprehensive Visit Department of General Surgery in [address] [phone] Roland Benson D.O. [address] [place] [phone] Discharge Disposition: Home or Self Care documented [...] evidence of right heartstrain. Pablo Vo M.D. [facility] [place]EDURES Final Result documented in this [...] documented as of this encounter Care Teams Beamer Hand Relationship Specialty Start Date End Date Jeff Reyes M.D. [address] [place] [phone] PCP - General 03/14/24 documented as of this encounter
--- OUTSIDE RECORDS SUMMARY | 2025-03-13 14:40 | XMS_ITS | Encounter Summary ---
Author Organization [facility] Address [address] [place] [address] Care Team Providers Care Histology Specialist Name Role Phone Jeff Reyes M.D. 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 [address] [place] [address] Phone: tel: fax: [facility] Region Referral ID Status Reason Start Date Expiration Date V isits Requested Visits Authorized [id number] Authorized 03/13/2025 06/13/2026 1 1 * Outpatient (Routine) - Authorized Specialty Diagnoses / Procedures Referred By Jono t Referred To Contact Oncology Pablo oV M.D. [address] [place] [address] Phone: tel: [facility] Region Referral ID Status Reason Start Date Expiration Date V isits Requested Visits Authorized [id number] Authorized 03/13/2025 09/12/2026 1 1 Reason for Visit * Outpatient (Routine) - Closed Specialty Diagnoses / Procedures Referred By Contelly t Referred To Contact Oncology Pablo Vo M.D. [address] [place] [address] Phone: tel: fax: [facility] Region Referral ID Status Reason Start Date Expiration Date Visits Re quested Visits Authorized [id number] Closed 11/12/2024 05/14/2026 1 1 Encounter Details Date Type Department Care Team (Late st Contact Info) Description 03/13/2025 2:40 PM CDT Telemedicine Department of Oncology in [place], [place] [address] [phone] Pablo Vo M.D. 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 Patient unable to answer 02/27/2025 [facility] Utilities Answer Date Recorded [...] Sex Assigned at Male 06/26/2018 4:20 PM HR INTERN Legal Sex Male 3:33 AM HR INTERN Gender Identity Not on file Sexual Orientation Not on file documented as of this encounter Progress Notes * Pablo Vo M.D. - 03/13/2025 2:40 PM CDT CV VIDEO VISIT Consult conducted via real-time audio/video technology by Pablo Vo M.D. in [facility] to the patient in Patient's Home PRIMARY CARE PHYSICIAN Jeff Reyes M.D. REQUESTING PROVIDER Pablo Vo M.D. [address] [place] [phone] REASON FOR VISIT Bilateral PE/DVT SUBJECTIVE HISTORY OF PRESENT ILLNESS Mr. Ramirez is a very pleasant 75 y.o. gentleman with a history of bilateral PE/DVT as follows: Oncology History Embolus Pulmonary (HCC) 08/08/2024 Initial Diagnosis Embolus Pulmonary (HCC) initially presented to [place] [facility] from [facility] with right lower quadrant pain directly transferred to [place] for further management of bilateral PE with [...] appropriate: Allergiesand current medications. 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 apixaban (Eliquis) 5 mg tablet Take 5 mg by mouth 2 (two) times a day. atorvastatin (Lipitor) 80 mg tablet Take 1 tablet (80 mg total) by mouth at bedtime. 90 tablet 3 bacitracin 500 unit/gram ointment Apply 1 Application topically 2 (two) times a day. baclofen (LIORESAL) 10 mg tablet Take 1 tablet (10 mg total) by mouth 2 (two) times a day. 60 tablet 0 BD PosiFlush Normal Saline 0.9 injection Use [...] day as needed (pain). ferrous sulfate tablet Take 325 mg by mouth every other day. fluticasone propionate (Flonase) 50 mcg/actuation nasal spray Administer 1 spray into each nostril 2 (two) times a day. furosemide (Lasix) 40 mg tablet Take 40 mg by mouth every morning. latanoprost (XALATAN) 0.005 % ophthalmic solution Administer 1 drop into both eyes daily. lisinopriL (PRINIVIL,ZESTRIL) 40 mg tablet Take 1 tablet (40 mg total) by mouth daily. 90 tablet 0 metFORMIN XR (Glucophage-XR) 500 mg 24 hr tablet Take 1,000 mg by mouth daily with evening meal. metoprolol succinate (TOPROL-XL) 100 mg 24 hr tablet Take 1 tablet (100 mg total) by mouth daily. Do not crush or chew. 90 tablet 0 nitroglycerin (Nitrostat) 0.[address] 0.4 mg under the tongue every 5 (five) minutes as needed for chest pain. ondansetron (ZOFRAN) 4 mg tablet Take 4 mg by mouth every 6 (six) hours as needed for nausea or vomiting. oxyCODONE (Roxicodone) 5 mg immediate release tablet Take 1 tablet (5 mg total) by mouth every 6 (six) hours as needed for severe pain or score 7-10 of 10 Indication: Acute Pain Exception. 12 tablet 0 pantoprazole (PROTONIX) 40 mg EC [...] times a day as needed for constipation. No current facility-administered medications on file prior to visit. ALLERGIES/CONTRAINDICATIONS Allergies Allergen Reactions Haemophilus Influenzae Other [...] 10/20/2023 Depression Screening (Annual PHQ-2) Never done Visit: Medicare Annual Wellness 02/07/2025 Influenza Vaccine (1) 03/24/2025 Office Visit for Blood Pressure Check / Re-check 11/12/2025 Creatinine Level (Kidney Function Test) 03/11/2026 Potassium Level 03/11/2026 Sodium Level 03/11/2026 Fasting Glucose for Diabetes Screening 03/11/2028 DTaP,Tdap,and Td Vaccines (3 - Td or Tdap) 04/08/2029 Lipid (Cholesterol) Screening 11/05/2029 Fall Risk Screen (Annual) Completed COVID-19 Vaccine Completed RSV vaccine - (32-36 weeks) or 60+ years Completed Pneumococcal vaccine (50+ years) Completed Zoster Vaccines Completed IPV Vaccines Aged Out Abdominal Aortic Aneurysm (AAA) Screen Discontinued FAMILY HISTORY Family History Problem Relation Name Age of Onset Hypertension Father father Glaucoma Father father Cancer Father father Coronary artery disease Father father Hyperlipidemia Father father Sleep apnea Father father Pulmonary embolism Neg Hx DVT - Deep vein thrombosis Neg Hx Miscarriages / Stillbirths Neg Hx SOCIAL HISTORY Social History Socioeconomic History Marital [...] Health Food Insecurity: Patient Unable To Answer (02/27/2025) Hunger Vital Sign Worried About Running Out of Food in the Last Year: Patient unable to answer Ran Out of Food in the Last Year: Patient unable to answer Transportation Needs: Patient Unable To Answer (02/27/2025) PRAPARE - Transportation Lack of Transportation (Medical): Patient unable to answer Lack of Transportation (Non-Medical): Patient unable to answer Intimate Partner Violence: Patient Unable To Answer (02/27/2025) Humiliation, Afraid, Rape, and Kick questionnaire Fear of Current or Ex-Partner: Patient unable to answer Emotionally Abused: Patient unable to answer Physically Abused: Patient unable to answer Sexually Abused: Patient unable to answer Housing Stability: Patient Unable To Answer (02/27/2025) Housing Stability Housing: Living Situation: Patient unable to answer OBJECTIVE DIAGNOSTICS LABORATORY DATA reviewed: RADIOLOGICAL DATA: Radiology data reviewed. ASSESSMENT / PLAN ASSESSMENT Diagnosis Plan 1. Embolus Pulmonary (HCC) CT Chest Angiogram with IV Contrast Creatinine with Estimated GFR 2. 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 Cholecystitis Chronic CT Chest Angiogram with IV Contrast Creatinine with Estimated GFR Mr. Ramirez is a very pleasant 75 y.o. gentleman with a history of multiple sclerosis with paraparesis, chronic decubitus ulcer/osteomyelitis, neurogenic bladder/bowel, right hip fracture s/p ORIF 12/2022, CAD who was found to have acute bilateral PEs with moderate to large clot burden/RV strain and DVTs during admission in 07/2024 for sepsis secondary to acute cholecystitis status post cholecystostomy tube, initially treated with heparin transitioning to apixaban. He was admitted in 02/2025 withsepsis, Gram-negative bacillus bacteremia. Repeat DVT ultrasound in 10/2024 was negative. Repeat CTchest in 02/2025 showed decreased clot burden, now mainly in right lung, nonocclusive. I had an extensive discussion with Bob regarding his condition in the presence of his daughter Malika. As previously discussed from his PE/DVT was likely multifactorial secondary to sepsis, increased BMI, limited mobility due to MS/hip fracture/surgery and while his sepsis has resolved, other contributing factors are not reversible. With this I would recommend apixaban until at least 07/2025, after that may consider switching to prophylactic dose if no evidence of persistent DVT/PE but would prefer to keep full dose given limited ambulation. another 6 months but considering extended treatment for lifetime. It is encouraging to see that hisclot burden has decreased. With this I would recommend continuing apixaban and reassessing in 4 months. After that, if he does not have any residual blood clots may consider switching to prophylactic dose. He does not have a family history of thromboembolism or spontaneous miscarriages in with his age of presentation, he is less likely to have underlying hereditary thrombophilia. Nevertheless we discussed option of checking for it, with shared decision making, he wishes to defer that. Otherwise, plan is to eventually proceed with a cholecystectomy. As previously discussed with him, if at any point surgery is considered an emergency then he may proceed with it. Otherwise, for an elective cholecystectomy, per [place] KASANDRA this was be considered as a relatively high-risk procedure withwhich apixaban would need to be held for 3 days prior to surgery. 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 I would therefore recommend repeating his CT chest angiogram and bilateral lower extremity DVT in July. Advance Care Planning Health Care Power of Optical Store Manager: Discussed with Rne Ramirez daughter Malika 2. Treatment Goals: Reduce chances of future blood clots 3. Additional lines of Therapy: Several 4. Prognosis: Median Survival: n/a 5. Patient Personal Goals and understanding of illness: Cholecystectomy PLAN Follow up in [address] angiogram Refer to family medicine team and surgery teams regarding optimal timing for cholecystectomy. If urgent cholecytecotmy is needed, then would recommend holding apixaban with 3 days between last dose of apixaban and date of surgery and proceeding with Lovenox bridging, otherwise wait until 07/2025 CT, Thank you for involving me with his care. PATIENT EDUCATION Ready to learn, no apparent learning barriers were identified; learning preferences include listening. Explained diagnosis and treatment plan; patient expressed understanding of the content. ADMINISTRATIVE BILLING I personally spent 40 minutes in care of the patient today. Time includes both non face to face andface to face patient care. Orders Placed This Encounter Procedures CT Chest Angiogram with IV Contrast Creatinine with Estimated GFR Oncology office visit (clinic) documented in this encounter Plan of Treatment Upcoming Encounters Date Type Department Care Team (Latest Contact Info) Description 04/11/2025 10:00 AM CDT Hospital Encounter Department of Radiology in [address] [phone] Anuel Nunn M.D. [address] [place] [phone] Qasim Rader M.D. [address] [place] [phone] 04/28/2025 1:00 PM CDT Comprehensive Visit Department of General Surgery in [address] [phone] Roland Benson D.O. 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) Cholecystitis Chronic Expected: 07/13/2025, Expires: 03/13/2026 Scheduled Referrals Name Type Priority Associated Diagnoses Orde r Schedule Oncology office visit (clinic) Outpatient Referral Routine Expected: 07/13/2025, Expires: 06/13/2026 documented as of this encounter Visit Diagnoses Diagnosis Embolus Pulmonary (HCC)- Primary 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 [address] [place] [address] PCP - General 03/14/24 documented as of this encounter
[2025-04-08] VITALS (53 sets, daily range): BP systolic 103–134; BP diastolic 38–54; PULSE 80–127; RESP 7–18; TEMP 36.6–36.7; O2SAT 92–99; BMI 25.8
--- OUTSIDE RECORDS SUMMARY | 2025-04-08 13:21 | XMS_ITS | Patient Health Record ---
Author Organization [facility] Address [address] [place] [address] Care Team Providers Care Machine Sole Leveler Name Role Phone Rubén Paez MD Primary Care Provider Melody Michael [place] Unavailable [phone] Reason For Referral No Information Social History Tobacco Use: Social History Observation Description Date Details (start date - stop date) Former Smoker NA - NA Tobacco Use/Smoking Question Answer Notes Are you a former smoker Section Notes: FAMILY HISTORY: HISTORY OF FAMILY PSYCH: Problems Problem Type SNOMED Code ICD Code Onset Dates Problem Status W/U Status Risk Notes Problem Tinea unguium (723589528) Tinea unguium (B35.1) Active confirmed Problem 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 (354656831) 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 confirmed Problem 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 Problem Pressure injury of right buttock stage III (disorder) (89313421005775 ) Pressure ulcer of right buttock, stage 3 (L89.313) Active confirmed Problem Pressure injury of right heel stage IV (disorder) (56644520440692 ) Pressure ulcer of right heel, stage 4 (L89.614) Active confirmed Plan Of Treatment No Information Insurance Providers Payer Name Payer Address Payer Phone Subscriber Number Group Number Insured Name Patient Relationship to Insured Coverage Start Date Coverage End Date [employer] [id number] (Government Programs) [address] [address] [place], [place] [id number] Ren Ramirez Self - patient is the insured 7 [facility] Government Services/Med icare [address] [facility] [address] [id number] Ren Ramirez Self - patient is the insured 3
--- OUTSIDE RECORDS SUMMARY | 2025-04-08 13:21 | XMS_ITS | Encounter Summary ---
Author Organization [facility] Address [address] [place] [address]. [place] [address] Care Team Providers Care Deposition Reporter Name Role Phone TyBijan Primary Care Provider [phone] Encounter Details Date Type Department Care Team (Late st Contact Info) Description 02/19/2025 Medical Correspondence [facility] [address] [place] [address] Scan, Non-Provider DR PORRAS Social History Tobacco Use Types Packs/Day Years Used Date Smoking Tobacco: Former Cigarettes Q uit: 07/24/1971 Smokeless Tobacco: Never Sex and Gender Information Value Date Recorded Sex Assigned at Not on file Legal Sex Male 2:17 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 Gender Identity Not on file Sexual Orientation Not on file documented as of this encounter Plan of Treatment Upcoming Encounters Date Type Department Care Team (Late st Contact Info) Description 04/21/2025 2:00 PM CDT Office Visit [facility] [address] [address] Rl Evans MD [address] [place] [address], [facility] [address] [place], [place] [address] documented as of this encounter Visit Diagnoses Not on filedocumented in this encounter Care Teams Deposition Reporter Relationship Specialty Start Date End Date Bijan Crawford Leonidas [address] [place] [address] PCP - General Family Medicine 01/20/25 documented as of this encounter
--- OUTSIDE RECORDS SUMMARY | 2025-04-08 13:21 | XMS_ITS | Clinical Summary ---
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 Overview (02/06/2025): History of [place] Neurogenic bowel 05/26/2018 Primary hypertension 05/28/2015 Overview [...] Encounters Date Type Department Care Team Description 04/07/2025 Lab Requisition [facility] [phone] Bijan Crawford MD 04/01/2025 Lab Requisition [facility] [address] [facility] [place] [address] Carmenza Quiroz NP 03/19/2025 Lab Requisition [facility] [phone] Carmenza Quiroz NP 03/14/2025 Lab Requisition [facility] [phone] Unknown, Doctor 03/13/2025 Lab Requisition [facility] [phone] Unknown, Doctor 03/07/2025 Lab Requisition [facility] [phone] Carmenza Quiroz NP 03/04/2025 8:32 AM CDT - 03/04/2025 11:59 PM CDT Hospital Encounter [facility] [address] [place] [address] [facility]25 Travel 03/03/2025 Lab Requisition [facility] [phone] Carmenza Quiroz NP 02/14/2025 Lab Requisition [facility] [phone] Carmenza Quiroz NP 02/12/2025 Telephone [facility] [address] [facility] [address] [place] [address] Bijan Khanna MD Error-please disregard (Error/) 02/06/2025 Travel 02/05/2025 11:52 PM CDT - 02/07/2025 5:37 PM CDT Hospital Encounter [facility] [address] [place] [address] [facility] [place] Hospitalists Of [employer] [facility], MD Rubin Zaragoza Kirsten Elizabeth, DO Tidwell, Blake Ryan, MD Chronic ulcer of sacral region, unspecified ulcer stage (HC) (Primary Dx) Discharge Disposition: Halfway Facility 02/03/2025 Lab Requisition [facility] [phone] Carmenza Quiroz NP 01/20/2025 Lab Requisition [facility] [phone] Carmenza Quiroz NP 01/14/2025 Lab Requisition [facility] [address] [place] [address] Carmenza Quiroz, [employer] from Last 3 Months Immunizations Immunization Administration Dates Next Due COVID-19 vaccine (Telcare NTech 30mcg/0.3mL) 12YO+ BIVALENT PF, MDV 05/17/2022 [...] st Contact Info) Description 06/02/2025 10:30 AM DATA ADMINISTRATOR Office Visit [facility] [address] [place] [address] Markel Schultz MD [address] [place] [address] Health Maintenance Due Date Last Done Comments [...] Associated Diagnosis Comments RED CELL MORPHOLOGY Routine 04/08/2025 7 :47 AM CDT Essential (primary) hypertension Hyperkalemia Other cystostomy status (HC) Disorders of gallbladder, biliary tract and pancreas in diseases classified elsewhere (HC) Acute cholecystitis PLATELET ESTIMATE Routine 04/08/2025 7:4 7 AM CDT Essential (primary) hypertension Hyperkalemia Other cystostomy status (HC) Disorders of gallbladder, biliary tract and pancreas in diseases classified elsewhere (HC) Acute cholecystitis CBC WITH AUTO DIFFERENTIAL Routine 04/08/2025 7:47 AM CDT Essential (primary) hypertension Hyperkalemia Other cystostomy status (HC) Disorders of gallbladder, biliary tract and pancreas in diseases classified elsewhere (HC) Acute cholecystitis HEPATIC FUNCTION PANEL Routine 04/08/2025 7:47 AM CDT Essential (primary) hypertension Hyperkalemia Other cystostomy status (HC) Disorders of gallbladder, biliary tract and pancreas in diseases classified elsewhere (HC) Acute cholecystitis CBC WITH AUTO DIFFERENTIAL Routine 04/08/2025 7:47 AM CDT Essential (primary) hypertension Hyperkalemia Other cystostomy status (HC) Disorders of gallbladder, biliary tract and pancreas in diseases classified elsewhere (HC) Acute cholecystitis BASIC METABOLIC PANEL Routine 04/08/2025 7:47 AM CDT Essential (primary) hypertension Hyperkalemia Other cystostomy status (HC) Disorders of gallbladder, biliary tract and pancreas in diseases classified elsewhere (HC) Acute cholecystitis CBC WITH AUTO DIFFERENTIAL Routine 04/01/2025 7:21 [...] buttock, stage 4 (HC) Osteomyelitis, unspecified (HC) from Last 3 Months Results * (ABNORMAL) CBC WITH AUTO DIFFERENTIAL (04/08/2025 7:47 AM CDT) Only the most recent of9 resultswithin the time period is included. WHITE BLOOD COUNT 11.0 4.5 - 11.0 thou/cu mm 04/08/2025 10:40 AM [facility] RED BLOOD COUNT 3.25(L) 4.30 - 5.90 mil/cu mm 04/08/2025 10:40 AM [facility] HEMOGLOBIN 8.1(L) 13.5 - 17.5 g/dL 04/08/2025 10:40 AM [facility] HEMATOCRIT 27.6(L) 37.0 - 53.0 % 04/08/2025 10:40 AM [facility] MCV 85 80 - 100 fL 04/08/2025 10:40 AM [facility] MCH 24.9(L) 26.0 - 34.0 pg 04/08/2025 10:40 AM [facility] MCHC 29.3(L) 32.0 - 36.0 g/dL 04/08/2025 10:40 AM [facility] RDW 18.7(H) 11.5 - 15.5 % 04/08/2025 10:40 AM [facility] PLATELET COUNT 244 140 - 440 thou/cu mm 04/08/2025 10:40 AM [facility] MPV 9.3 6.5 - 11.0 fL 04/08/2025 10:40 AM [facility] % NEUT 77.8 % 04/08/2025 10:40 AM [facility] % LYMPH 11.7 % 04/08/2025 10:40 AM [facility] % MONO 8.3 % 04/08/2025 10:40 AM [facility] % EOS 2.1 % 04/08/2025 10:40 AM [facility] % BASO 0.1 % 04/08/2025 10:40 AM [facility] ABSOLUTE NEUTROPHILS 8.6(H) 1.7 - 7.0 thou/cu mm 04/08/2025 10:40 AM [facility] ABSOLUTE LYMPHOCYTES 1.3 0.9 - 2.9 thou/cu mm 04/08/2025 10:40 AM [facility] ABSOLUTE MONOCYTES 0.9(H) <0.9 thou/cu mm 04/08/2025 10:40 AM [facility] ABSOLUTE EOSINOPHILS 0.2 <0.5 thou/cu mm 04/08/2025 10:40 AM [facility] ABSOLUTE BASOPHILS 0.0 <0.3 thou/cu mm 04/08/2025 10:40 AM [facility] Blood BLOOD SPECIMEN / Unknown Butterfly / Unknown 04/08/2025 7:47 AM T 04/08/2025 9:40 AM CDT Bijan Crawford MD HEMATOLOGY Final Result Performing Organization Address City/[facility]/ZIP Co de Phone Number [facility] [address] [place] [address] * (ABNORMAL) RED CELL MORPHOLOGY (04/08/2025 7:47 AM CDT) Only the most recent of3 resultswithin the time period is included. ECHINOCYTES Few 04/08/2025 10:40 AM CDT [facility] ELLIPTOCYTES Few 04/08/2025 10:40 AM CDT [facility] POLYCHROMASIA Slight 04/08/2025 10:40 AM CDT [facility] RBC COMMENT Present(A) RBC morphology appears normal, RBC morphology within normal limits for newborns. 04/08/2025 10:40 AM CDT [facility] Blood BLOOD SPECIMEN / Unknown Butterfly / Unknown 04/08/2025 7:47 AM CDT 04/08/2025 9:40 AM CDT Bijan Crawford MD HEMATOLOGY Final Result Performing Organization Address [facility] Co de Phone Number [facility] [address] [place] [address] * PLATELET ESTIMATE (04/08/2025 7:47 AM CDT) Only the most recent of3 resultswithin the time period is included. PLATELET ESTIMATE Adequate Adequate, No estimate 04/08/2025 10:40 AM CDT [facility] Blood BLOOD SPECIMEN / Unknown Butterfly / Unknown 04/08/2025 7:47 AM CDT 04/08/2025 9:40 AM CDT Bijan Crawford MD HEMATOLOGY Final Result Performing Organization Address City/[facility]/ZIP Co de Phone Number [facility] [address] [place] [address] * (ABNORMAL) HEPATIC FUNCTION PANEL (04/08/2025 7:47 AM CDT) Only the most recent of2 resultswithin the time period is included. ALBUMIN 2.7(L) 4.0 - 4.9 g/dL 04/08/2025 10:11 AM T [facility] PROTEIN,TOTAL 5.8(L) 6.0 - 8.0 g/dL 04/08/2025 10:11 AM T [facility] BILIRUBIN,TOTAL 0.4 0.0 - 1.2 mg/dL 04/08/2025 10:11 AM T [facility] BILIRUBIN,DIRECT 0.2 0.0 - 0.2 mg/dL 04/08/2025 10:11 AM [facility] BILIRUBIN,INDIRE CT 0.2 0.2 - 0.8 mg/dL 04/08/2025 10:11 AM [facility] ALK PHOSPHATASE 160(H) 40 - 129 IU/L 04/08/2025 10:11 AM [facility] ALT (SGPT) 8(L) 10 - 50 IU/L 04/08/2025 10:11 AM [facility] AST (SGOT) 22 10 - 50 IU/L 04/08/2025 10:11 AM [facility] Blood BLOOD SPECIMEN / Unknown Butterfly / Unknown 04/08/2025 7:47 AM CDT 04/08/2025 9:40 AM CDT Bijan Crawford MD CHEMISTRY Final Result [facility] [address] [place] [address] * (ABNORMAL) BASIC METABOLIC PANEL (04/08/2025 7:47 AM CDT) Only the most recent of9 resultswithin the time period is included. SODIUM 136 136 - 145 mmol/L 04/08/2025 10:11 AM T [facility] POTASSIUM 5.5(H) 3.5 - 5.1 mmol/L 04/08/2025 10:11 AM [facility] CHLORIDE 101 98 - 107 mmol/L 04/08/2025 10:11 AM [facility] CO2,TOTAL 22 22 - 29 mmol/L 04/08/2025 10:11 AM [facility] ANION GAP 13 5 - 18 04/08/2025 10:11 AM [facility] GLUCOSE 104(H) 70 - 99 mg/dL 04/08/2025 10:11 AM [facility] CALCIUM 9.3 8.8 - 10.4 mg/dL 04/08/2025 10:11 AM [facility] Comment: Reference ranges for this test were updated on 05/28/2024 to reflect our healthy population more accurately. Reference range changes are not retroactively applied to results, but previous results using the same methodology can be interpreted in the context of the new reference range. BUN 49(H) 8 - 23 mg/dL 04/08/2025 10:11 AM [facility] CREATININE 3.92(H) 0.70 - 1.20 mg/dL 04/08/2025 10:11 AM [facility] BUN/CREAT RATIO 13 10 - 20 10:11 AM [facility] eGFR 15(L) >90 mL/min/1. 73m2 04/08/2025 10:11 AM [facility] Comment:As of 2021, eG FR is calculated by the CKD-EPI creatinine equation without race adjustment. eGFR can be influenced by muscle mass, exercise, and diet. The reported eGFR is an estimation only and is only applicable if the renal function is stable. Blood BLOOD SPECIMEN / Unknown Butterfly / Unknown 04/08/2025 7:47 AM CDT 04/08/2025 9:40 AM T us Bijan Crawford MD CHEMISTRY Final Result [facility] [address] [place] [address] * (ABNORMAL) C-REACTIVE PROTEIN (03/25/2025 7:13 AM CDT) Only the most recent of3 resultswithin the time period is included. C-REACTIVE PROTEIN 9.6(H) <0.5 mg/dL 03/25/2025 8:47 AM CDT [facility] Blood BLOOD SPECIMEN / Unknown Butterfly / Unknown 03/25/2025 7:13 AM CDT 03/25/2025 8:21 AM CDT us Carmenza Quiroz NP CHEMISTRY Final Resul t [facility] [address] [place] [address] * LAB TRACKING EVENT (03/12/2025 1:28 PM CDT) Other (Other) Client Collect / Unknown 03/12/2025 1:28 PM CDT 03/13/2025 6:12 AM CDT us Doctor Unknown LAB BILL ONLY Final Result [facility] [employer] [facility] [address] [place] [address], * PATH TISSUE EXAM (03/12/2025 1:28 PM CDT) Case Report Pathology Report Case: [id number] Authorizing Provider: Unknown, Doctor Collected: 03/12/2025 1328 Ordering Location: [facility] Received: 03/13/2025 1607 Pathologist: Clay Carcamo MD Specimen: Right Buttock, buttock wound, stage 4 ulcer 03/17/2025 11:16 AM CDT [facility] Final Diagnosis A) BONE, RIGHT GLUTEUS, BIOPSY: 1. Soft tissue and periosteum with mixed inflammation 2. Scant fragments of bone with mixed inflammation 3. See comment 03/17/2025 11:16 AM CDT [facility] at 1116 CDT Comment Minimal bone is available for assessment, which appears to show involvement by acute and chronic inflammation, although it is unclear if this represents osteomyelitis, or an embedding artifact. Correlation with imaging and culture data is recommended. 03/17/2025 11:16 AM CDT [facility] Clinical Information Per requisition: Assess for osteomyelitis, positive on MRI 03/17/2025 11:16 AM CDT [facility] Gross Description A) Received in formalin, labeled with the patient's name and bone biopsy R gluteus, is a 2.0 x 1.5 x 0.6 cm aggregate of softened sandoval-brown bone with minimal attached soft tissue. The specimen is entirely submitted following decalcification in 1 cassette. JKG 03/13/2025 03/17/2025 11:16 AM CDT [facility] Microscopic Description The final diagnosis is based on microscopic examination of appropriate sections of all specimens. 03/17/2025 11:16 AM CDT [facility] Additional Information Interpreted at [facility] - [address] [facility] [address], [place] [address] 03/17/2025 11:16 AM T [facility] Other (Right Buttock) 03/12/2025 1:28 PM CDT 03/13/2025 4:07 PM CDT us Doctor Unknown PATHOLOGY/CYTOLOGY Final Result [facility] [address] [place] [address], * (ABNORMAL) MANUAL DIFFERENTIAL (03/11/2025 8:23 AM CDT) Only the most recent of2 resultswithin the time period is included. % NEUTROPHILS 76.0 % 03/11/2025 10:42 AM CDT [facility] % LYMPHOCYTES 21.0 % 03/11/2025 10:42 AM CDT [facility] % MONOCYTES 3.0 % 03/11/2025 10:42 AM CDT [facility] % EOSINOPHILS 0.0 % 03/11/2025 10:42 AM CDT [facility] % BASOPHILS 0.0 % 03/11/2025 10:42 AM CDT [facility] NEUTROPHILS ABSOLUTE 9.5(H) 1.7 - 7.0 thou/cu mm 03/11/2025 10:42 AM CDT [facility] LYMPHOCYTES ABSOLUTE 2.6 0.9 - 2.9 thou/cu mm 03/11/2025 10:42 AM CDT [facility] MONOCYTES ABSOLUTE 0.4 <0.9 thou/cu mm 03/11/2025 10:42 AM CDT [facility] EOSINOPHILS ABSOLUTE 0.0 <0.5 thou/cu mm 03/11/2025 10:42 AM CDT [facility] BASOPHILS ABSOLUTE 0.0 <0.3 thou/cu mm 03/11/2025 10:42 AM CDT [facility] Blood BLOOD SPECIMEN / Unknown Butterfly / Unknown 03/11/2025 8:23 AM CDT 03/11/2025 9:36 AM CDT Carmenza Quiroz [employer] HEMATOLOGY Final Resul t [facility] [address] [place] [address] * CT CHEST PE STUDY (03/04/2025 9:07 AM CDT) Anatomical Region Laterality Modality CHEST, THORAX, HEART Computed To mography Pablo Vo [facility] CT Fin al Result * HEMOGLOBIN A1C (02/18/2025 7:15 AM CDT) HEMOGLOBIN A1C SCREENING 6.3 <=6.4 % 02/18/2025 8:35 AM CDT [facility] Blood BLOOD SPECIMEN / Unknown Butterfly / Unknown 02/18/2025 7:15 AM CDT 02/18/2025 8:19 AM CDT Narrative [facility] - 02/18/2025 8:35 AM CDT (<5.7%) Normal (5.7% to 6.4%) Indicates prediabetes (>=6.5%) Confirms diabetes Falsely low levels may be seen with: Recent Transfusion, Recent Significant Blood Loss, Hemolytic Diseases, or Falsely elevated levels may be seen with: Untreated Anemias, Splenectomy us Carmenza Quiroz NP CHEMISTRY Final Resul t Performing Organization Address City/[facility]/ZIP Co de Phone Number [facility] [address] [place] [address] * (ABNORMAL) GLUCOSE METER (02/07/2025 7:58 AM CDT) Only the most recent of7 resultswithin the time period is included. GLUCOSE METER 146(H) 65 - 100 mg/dL 02/07/2025 7:58 AM CDT [facility] Blood BLOOD SPECIMEN / Unknown 02/07/2025 7:58 AM CDT 02/07/2025 7:58 AM CDT us Erick Lazaro MD CHEMISTRY Final Resu lt Performing Organization Address City/[facility]/ZIP Co de Phone Number [facility] [address] [place] [address], [place] * WBC AM (02/07/2025 7:05 AM CDT) Only the most recent of2 resultswithin the time period is included. WHITE BLOOD COUNT 7.8 4.5 - 11.0 thou/cu mm 02/07/2025 7:20 AM CDT [facility] NRBC 0.0 % 02/07/2025 7:20 AM CDT [facility] ABS NRBC 0.0 thou /cu mm 02/07/2025 7:20 AM CDT [facility] Blood BLOOD SPECIMEN / Unknown Venipuncture / Unknown 02/07/2025 7:05 AM CDT 02/07/2025 7:11 AM CDT us Erick Lazaro MD HEMATOLOGY Final Resu lt Performing Organization Address [facility] Co de Phone Number [facility] [address] [place] [address], [place] * (ABNORMAL) Hemoglobin AM (02/07/2025 7:05 AM CDT) Only the most recent of3 resultswithin the time period is included. Pathologist [facility] HEMOGLOBIN 9.6(L) 13.5 - 17.5 g/dL 02/07/2025 7:20 AM CDT [facility] MCV 84 80 - 100 fL 02/07/2025 7:20 AM CDT [facility] Blood BLOOD SPECIMEN / Unknown Venipuncture / Unknown 02/07/2025 7:05 AM CDT 02/07/2025 7:11 AM CDT us Erick Lazaro MD HEMATOLOGY Final Resu lt Performing Organization Address [facility] Co de Phone Number [facility] [address] [place] [id number], [place] * Potassium AM (02/07/2025 7:04 AM CDT) Pathologist [facility] POTASSIUM 3.6 3.5 - 5.1 mmol/L 02/07/2025 7:46 AM CDT [facility] Blood BLOOD SPECIMEN / Unknown Venipuncture / Unknown 02/07/2025 7:04 AM CDT 02/07/2025 7:11 AM CDT us Erick Lazaro MD CHEMISTRY Final Resu lt Performing Organization Address City/[facility] Co de Phone Number [facility] [address] [place] [address], [place] * (ABNORMAL) Creatinine AM (02/07/2025 7:04 AM CDT) eGFR 90(L) >90 mL/min/1.7 3m2 02/07/2025 7:46 AM CDT [facility] Comment:As of 2021, eG FR is calculated by the CKD-EPI creatinine equation without race adjustment. eGFR can be influenced by muscle mass, exercise, and diet. The reported eGFR is an estimation only and is only applicable if the renal function is stable. CREATININE 0.87 0.70 - 1.20 mg/dL 02/07/2025 7:46 AM CDT [facility] Blood BLOOD SPECIMEN / Unknown Venipuncture / Unknown 02/07/2025 7:04 AM CDT 02/07/2025 7:11 AM CDT us Erick Lazaro MD CHEMISTRY Final Resu lt Performing Organization Address City/[facility]/ZIP Co de Phone Number [facility] [address] [address], [place] * Magnesium AM (02/07/2025 7:04 AM CDT) MAGNESIUM 1.6 1.6 - 2.4 mg/dL 02/07/2025 7:46 AM CDT [facility] Blood BLOOD SPECIMEN / Unknown Venipuncture / Unknown 02/07/2025 7:04 AM CDT 02/07/2025 7:11 AM CDT us Erick Lazaro MD CHEMISTRY Final Resu lt Performing Organization Address City/[facility]/ZIP Co de Phone Number [facility] [address] [address], [place] * PLATELET COUNT (02/06/2025 2:22 PM CDT) PLATELET COUNT 202 140 - 440 thou/cu mm 02/06/2025 2:45 PM CDT [facility] MPV 9.0 6.5 - 11.0 fL 02/06/2025 2:45 PM CDT [facility] Blood BLOOD SPECIMEN / Unknown Butterfly / Unknown 02/06/2025 2:22 PM CDT 02/06/2025 2:39 PM CDT Narrative [facility] - 02/06/2025 2:45 PM CDT Obtain before initiating IV heparin therapy if not done within previous 24 hours. Obtain before initiating IV heparin therapy if not done within previous 24 hours. Erick Lazaro MD HEMATOLOGY Final Resu lt Performing Organization Address City/[facility]/ZIP Co de Phone Number [facility] [address] [place] [address], * APTT (02/06/2025 2:22 PM CDT) APTT 34 25 - 36 sec 02/06/2025 2:52 PM CDT [facility] Blood BLOOD SPECIMEN / Unknown Butterfly / Unknown 02/06/2025 2:22 PM CDT 02/06/2025 2:39 PM CDT [facility] - 02/06/2025 2:52 PM CDT Therapeutic Range: 59-89 seconds Erick Lazaro MD HEMATOLOGY Final Resu lt Performing Organization Address City/[facility] Co de Phone Number [facility] [address] [place] [address], * (ABNORMAL) PROTIME-INR (02/06/2025 2:22 PM CDT) INR 1.3(H) <1.3 02/06/2025 2:52 PM CDT [facility] PROTIME 15.0(H) 10.6 - 12.4 sec 02/06/2025 2:52 PM CDT [facility] Blood BLOOD SPECIMEN / Unknown Butterfly / Unknown 02/06/2025 2:22 PM CDT 02/06/2025 2:39 PM CDT [facility] - 02/06/2025 2:52 PM CDT [...] seconds if the patient is on UFH. us Erick Lazaro MD HEMATOLOGY Final Resu lt Performing Organization Address City/[facility]/ZIP Co de Phone Number [facility]AL LAB[facility] [address] [place] [address], [place] * SCAN CORRESP-EKG RESULTS (02/06/2025 1:33 PM CDT) Narrative 02/06/2025 1:33 PM CDT Ordered by an unspecified provider. Other Clinical Staff OTHER Final Resul t * TSH (01/14/2025 7:40 AM CDT) TSH 2.69 0.27 - 4.20 uIU/mL 01/14/2025 9:16 AM CDT [facility] Blood BLOOD SPECIMEN / Unknown Butterfly / Unknown 01/14/2025 7:40 AM CDT 01/14/2025 8:42 AM CDT [facility] LAB[facility]ATORY - 01/14/2025 9:16 AM CDT In Adults, TSH values between 5.00 and 10.00 uIU/ml do not necessarily indicate the presence of Hypothyroidism. Correlation with clinical findings such as presence of goiter and/or Thyroperoxidase (TPO) Antibody may be helpful. For more information please refer to LUIGI 2004; 291: 228-238. us Carmenza Quiroz NP CHEMISTRY Final Resul t Performing Organization Address City/[facility]/ZIP Co de Phone Number [facility] [address] [place] [address] * ALT (SGPT) (01/14/2025 7:40 AM CDT) ALT (SGPT) 19 10 - 50 IU/L 01/14/2025 9:16 AM CDT [facility] Blood BLOOD SPECIMEN / Unknown Butterfly / Unknown 01/14/2025 7:40 AM CDT 01/14/2025 8:42 AM CDT Carmenza Quiroz [employer] CHEMISTRY Final Resul t Performing Organization Address City/[facility]/ZIP Co de Phone Number [facility] [address] [place] [address] * ALK PHOSPHATASE (01/14/2025 7:40 AM CDT) ALK PHOSPHATASE 85 40 - 129 IU/L 01/14/2025 9:16 AM CDT [facility] Blood BLOOD SPECIMEN / Unknown Butterfly / Unknown 01/14/2025 7:40 AM CDT 01/14/2025 8:42 AM CDT Carmenza Quiroz NP CHEMISTRY Final Resul t Performing Organization Address [facility] Co de Phone Number [facility] [address] [place] [address] * (ABNORMAL) PRO-BNP (01/14/2025 7:40 AM CDT) PRO-BNP 1,544(H) <450 pg/mL 01/14/2025 9:19 AM CDT [facility] Blood BLOOD SPECIMEN / Unknown Butterfly / Unknown 01/14/2025 7:40 AM CDT 01/14/2025 8:42 AM CDT Narrative [facility] - 01/14/2025 9:19 AM CDT The [...] of 72% for acute congestive heart failure. Carmenza Quiroz NP SEND OUTS Final Resul t [facility] [address] [place], [place] [id number] from Last 3 Months Additional Health Concerns Infection Onset Date Last Indicated MDRO Clearance Comment:Infection Control Note: Hx of ESBL, surveillance criteria met, no need for further testing or isolation precautions. Do not delete or resolve the Infection Flag. Anecdotal +ESBL 02/06/2025 02/06/2025 Insurance [employer] [facility] [place] [address] [employer] [facility] Advance Directives Documents on File Type Date Recorded Patient Shopper'S Aide Daniel TIWARI 01/26/2023 * Full Code (Latest Code Status on File) Date Activated Date Inactivated Comments 02/06/2025 3:46 AM 02/07/2025 7:38 PM Question Answer Comments Code Status Discussion: Reviewed Preferences * Full Code Date Activated Date Inactivated Comments 02/06/2025 12:37 AM 02/06/2025 3:46 AM Question Answer Comments Code Status Discussion: Unable to Assess Preferences, Provider to review later Care Teams Mitten Stitcher Relationship Specialty Start Date End Date Pcp, No . PCP - General 03/03/25 Birdie Taveras, RN [address] [facility] [address] [place], [place] [phone] Clam Dredger - [facility] Registered Nurse 07/24/23 Karrie Singer RN [address] [facility] [address] [place], [place] [address] Clam Dredger - [facility] Registered Nurse 07/24/23
--- OUTSIDE RECORDS SUMMARY | 2025-04-08 13:21 | XMS_ITS | Encounter Summary ---
Author Organization [place] Address [facility] [place] [address] Care Team Providers Care Patient Registrar Name Role Phone Bijan Crawford Primary Care Provider [phone] Rl Evans MD Unavailable [phone] Reason for Visit * Reason Onset Date Comments conversation 03/10/2025 wantnitza to disc uss patient with Dr Evans Encounter Details Date Type Department Care Team ([facility] Contact Info) Description 03/10/2025 [facility] [address] [address] Rl Evans MD [address] [facility], [facility] [address] [place] [address] conversation ( wants to discuss patient with Dr Evans) Social History Tobacco Use Types Packs/Day Years Used Date Smoking Tobacco: Former Cigarettes Q uit: 07/24/1971 Smokeless Tobacco: Never Sex and Gender Information Value Date Recorded Sex Assigned at Not on file 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 Please call her on cell phone. Number given. [phone] Action Taken: Message routed to: [facility] ID Travel Screening: Not Applicable Date of Service: documented in this encounter Plan of Treatment Upcoming Encounters Date Type Department Care Team (Late st Contact Info) Description 04/21/2025 2:00 PM CDT Office Visit [facility] Infect[facility] Disease Clinic [address] [phone] Rl Evans MD [address] [place] [address], [facility] [address] [place], [place] [address] documented as of this encounter Visit Diagnoses Not on filedocumented in this encounter Care Teams Patient Registrar Relationship Specialty Start Date End Date Bijan Crawford [address] [place], [place] [address] PCP - General Family Medicine 01/20/25 Rl Evans MD [address] [place] [address], [facility] [address] [place], [place] [phone] Assigned Infectious Disease Provider 03/15/25 documented as of this encounter
--- OUTSIDE RECORDS SUMMARY | 2025-04-08 13:21 | XMS_ITS | Clinical Summary ---
Author Organization [place] Address [facility] [place] [address] Care Team Providers Care Practice Architect Name Role Phone Bijan Crawford Primary Care Provider [phone] Rl Evans MD Unavailable [phone] Allergies Active Allergy Reactions Criticality Noted Date [...] Type Department Care Team Description 03/10/2025 Telephone [facility] Disease Clinic [address] [phone] Rl Evans MD conversation (Dr wants to discuss patient with Dr Evans) 02/25/2025 Documentation Only [facility] [address] [facility] [address] [place] [address] Aida Moya LSW Advance Care Planning 02/19/2025 3:00 PM CDT Office Visit [facility] Infectious Disease [address] [facility] [address] [place] [phone] Rl Evans MD Pressure injury of left buttock, stage 4 (H) 02/19/2025 Medical Correspondence [facility] [address] [place] [address] Sunshine, Non-Provider DR PORRAS 02/19/2025 Travel 02/12/2025 Medical Correspondence [facility] [address] [place] [address] Scan, Non-Provider [facility] 01/23/2025 Medical Correspondence [facility] Information Management [address] [facility] [address] [place] [address] Scan, Non-Provider [facility] 01/16/2025 Transcribe Orders GENERIC EXTERNAL DATA DEPARTMENT Stella Mejia MD Pressure ulcer (Primary Dx) from Last 3 Months Social History Tobacco Use Types Packs/Day Years Used Date Smoking Tobacco: Former Cigarettes Q uit: 07/24/1971 Smokeless Tobacco: Never Tobacco Cessation:Counseling Given: Not Answered Sex and Gender Information Value Date Recorded Sex Assigned at Not on file 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 Diseases Diag. Lab [address] [facility] [place] [address], [facility] from Last 3 Months Insurance [employer] [place] [id number] Advance Directives For more information, please contact: [phone] Documents on File Type Date Recorded Patient Glove Presser Expl anation Advance Directives and Livin g Will 02/25/2025 POLST 01/26/2023 Care Teams Practice Architect Relationship Specialty Start Date End Date Ty Bijan Lauren [address] [place], [place] [address] PCP - General Family Medicine 01/20/25 Rl Evans MD [address] [place] [address], [facility] [address] [place], [place] [phone] Assigned Infectious Disease Provider 03/15/25
--- OUTSIDE RECORDS SUMMARY | 2025-04-08 13:21 | XMS_ITS | Encounter Summary ---
Author Organization [place] Address [address] [place] [address]. [place] [address] Care Team Providers Care Software Integrator Name Role Phone Ty Bijan Leonidas Primary Care Provider [phone] Reason for Visit * Reason Onset Date Comments Advance Care Planning 02/25/2025 Encounter Details Date Type Department Care Team (Late st Contact Info) Description 02/25/2025 Documentation Only [facility] [address] [facility] [address] [place] [phone] Aida Moya, DRUG ABUSE WORKER [facility] [address] [phone] [place], [place] [address] Advance Care Planning Social History Tobacco Use Types Packs/Day Years Used Date Smoking Tobacco: Former Cigarettes Q uit: 07/24/1971 Smokeless Tobacco: Never Sex and Gender Information Value Date Recorded Sex Assigned at Not on file 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 Gender Identity Not on file Sexual Orientation Not on file documented as of this encounter Plan of Treatment Upcoming Encounters Date Type Department Care Team (Late st Contact Info) Description 04/21/2025 2:00 PM CDT Office Visit [facility] Infect[facility] Disease Clinic [place] [address] [place] [address] Rl Evans MD [address] [facility] [address] [place], [place] [address] documented as of this encounter Visit Diagnoses Not on filedocumented in this encounter Care Teams Software Integrator Relationship Specialty Start Date End Date Bijan Crawford [address] [place] [address] PCP - General Family Medicine 01/20/25 documented as of this encounter
--- NOTE | 2025-04-08 14:02 | ED.GENADULT ---
HPI - General Adult General Date Seen: 04/08/25 Chief complaint: Unspecified Complaint, Adult Stated complaint: Weakness Time Seen by Provider: 04/08/25 13:29 Source: patient, EMS and RN notes reviewed Mode of arrival: EMS Limitations: no limitations History of Present Illness HPI narrative: Patient is a 75-year-old male presenting to the emergency department via ambulance for abnormal lab work. He has a history of a stage IV pressure ulcer of the buttocks, osteomyelitis, paraplegia, diabetes, neurogenic bowel and bladder, cholecystectomy tube, cognitive impairment. He had lab work done today showing he has a hemoglobin of 8.1 and a creatinine of 2.9. Patient states he feels well other than some mild shortness of breath that he thinks has been going on for couple days. Is able to answer most of my questions appropriately but occasionally begins to appear confused. Denies chest pain, abdominal pain, headache, fevers, chills, weakness, numbness. No other concerns noted at this time. Nursing staff at his halfway states he was hypotensive for them but in the ED his blood pressure was normal. His halfway also states there is no urinary output overnight into his drainage bag but in the ED he had 400 mL in the bag. They were told to send the patient to the emergency department by the provider on shift Related Data Home Medications ?Medication ?Instructions ?Recorded ?Confirmed calcium carbonate (Zachary-Gest 400 mg PO BID PRN 08/07/24 04/02/25 Antacid) cholecalciferol (vitamin D3) 25 25 mcg PO DAILY 08/07/24 04/02/25 mcg (1,000 unit) tablet (Vitamin D3) furosemide 40 mg tablet 40 mg PO DAILY 08/07/24 04/02/25 lisinopril 40 mg tablet 40 mg PO DAILY 08/07/24 04/02/25 metoprolol succinate 100 mg 100 mg PO DAILY 08/07/24 04/02/25 tablet,extended release 24 hr pantoprazole 40 mg tablet,delayed 40 mg PO BID 08/07/24 04/02/25 release polyethylene glycol 3350 17 17 g PO DAILY 08/07/24 04/02/25 gram/dose oral powder apixaban 5 mg tablet (Eliquis) 5 mg PO BID 11/16/24 04/02/25 atorvastatin 80 mg tablet 80 mg PO HS 11/16/24 04/02/25 bacitracin 500 unit/gram topical 1 applic topical BID 11/16/24 04/02/25 ointment baclofen 10 mg tablet 10 mg PO BID 11/16/24 04/02/25 latanoprost 0.005 % eye drops 1 drp ophthalmic (eye) HS 11/16/24 04/02/25 sennosides 8.6 mg-docusate sodium 2 tab-cap PO DAILY PRN 11/16/24 04/02/25 50 mg tablet (Senna Plus) carbamide peroxide 6.5 % ear drops 5 drp otic (ear) Q7D PRN 11/17/24 04/02/25 (Ear Wax Removal Kit) clotrimazole 1 % topical cream 1 applic topical BID 12/12/24 04/02/25 acetic acid 0.25 % irrigation See Rx Instructions .Route BID 01/04/25 04/02/25 solution ferrous sulfate 325 mg (65 mg 325 mg PO Q48H 01/04/25 04/02/25 iron) tablet metformin 500 mg tablet,extended 1,000 mg PO QPM 01/04/25 03/21/25 release 24 hr oxycodone 5 mg tablet 5 mg PO Q6H PRN 01/04/25 04/02/25 sennosides 8.6 mg tablet (senna) 17.2 mg PO DAILY PRN 01/28/25 04/02/25 ondansetron HCl 4 mg tablet 4 mg PO BID 02/21/25 04/02/25 cetirizine 10 mg tablet 10 mg PO DAILY 04/02/25 04/02/25 fluticasone propionate 50 intranasal 04/02/25 mcg/actuation nasal spray,suspension sertraline 25 mg tablet 25 mg PO DAILY 04/02/25 04/02/25 Previous Rx's ?Medication ?Instructions ?Recorded allopurinol 100 mg tablet 100 mg PO DAILY #30 tabs 11/19/24 nitrofurantoin 100 mg PO Q12H 5 days #10 caps 04/07/25 monohydrate/macrocrystals 100 mg capsule (Macrobid) Allergies Allergy/AdvReac Type Severity Reaction Status Date / Time Haemophilus B polysaccharide Allergy Unknown Verified 04/02/25 12:26 conj w vancomycin Allergy Unknown Verified 04/02/25 12:26 Review of Systems Status of ROS: Reports: 10 or more systems reviewed and unremarkable except as noted in History and below (But with some limits due to his cognitive impairment) PFSH PFS Medical History Chronic 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 (ICD-10) History of pulmonary embolism ?Z86.711 - Personal history of pulmonary embolism (ICD-10) Paraplegia ?G82.20 - Paraplegia, unspecified (ICD-10) Lymphedema ?I89.0 - Lymphedema, not elsewhere classified (ICD-10) Diabetes mellitus ?E11.9 - Type 2 diabetes mellitus without complications (ICD-10) Stage III pressure ulcer of sacral region ?L89.153 - Pressure ulcer of sacral region, stage 3 (ICD-10) Stage III pressure ulcer of buttock ?L89.303 - Pressure ulcer of unspecified buttock, stage 3 (ICD-10) Pressure ulcer of coccygeal region, stage 1 ?L89.151 - Pressure ulcer of sacral region, stage 1 (ICD-10) Neurogenic bowel ?K59.2 - Neurogenic bowel, not elsewhere classified (ICD-10) Hyperuricemia ?E79.0 - Hyperuricemia without signs of inflammatory arthritis and tophaceous disease (ICD-10) Hyperlipidemia ?E78.5 - Hyperlipidemia, unspecified (ICD-10) Hypertension ?I10 - Essential (primary) hypertension (ICD-10) Coronary artery disease ?I25.10 - Atherosclerotic heart disease of [place] coronary artery without angina pectoris (ICD-10) Fracture, intertrochanteric, right femur ?S72.141A - Displaced intertrochanteric fracture of right femur, initial encounter for closed fracture (ICD-10) Sleep apnea ?G47.30 - Sleep apnea, unspecified (ICD-10) Eason catheter in place ?Z97.8 - Presence of other specified devices (ICD-10) Neurogenic bladder ?N31.9 - Neuromuscular dysfunction of bladder, unspecified (ICD-10) Obesity ?E66.9 - Obesity, unspecified (ICD-10) Multiple sclerosis ?G35 - Multiple sclerosis (ICD-10) Surgical History H/O insertion of cholecystostomy tube ?Z98.890 - Other specified postprocedural states (ICD-10) Family History Father Coronary artery disease High blood pressure High cholesterol Sleep apnea Social History Narrative: Resident of [facility]. Daughter Malika is healthcare power of employment law attorney. Code status is DNR. Remote history of smoking What is your current living situation?: I presently have a place to live Problems where you live: no known problems Problems where you live details: NA In the past 12 months, utilities in danger of being shut off: no In past 12 months, lack of transportation kept you from medical appts, meetings, work, or getting things needed for daily living: no In the past 12 mos, have been you worried that your food would run out before you had money to buy more?: never true In the past 12 mos, the food you bought just didn't last and you didn't have money to buy more?: never true Highest level of school completed/degree received: 12th grade, no diploma Smoking Status: Former smoker What tobacco products do you use: cigarettes Smoking quit date/years: >15 years ago Do you use any of these nicotine containing products: None Second hand tobacco smoke exposure: No How often do you have a drink containing alcohol: never How often do you have six or more drinks on one occasion: Never AUDIT-C Alcohol total score: 0 Non-prescribed substance use: denies use Caffeine: Yes (tea and coffee) How often does anyone, including family, friends and others, physically hurt you: unable to answer How often does anyone, including family, friends and others, insult or talk down to you: unable to answer How often does anyone, including family, friends and others, threaten you with harm: unable to answer How often does anyone, including family, friends and others, scream or curse at you: unable to answer service: No Exam Narrative: Exam Narrative: Const: Has a cholecystostomy tube, Eason, wound VAC, in no distress Eyes: PERRL, no conjunctival injection, and symmetrical lids HENT: Atraumatic external nose and ears. Moist mucous membranes. Neck: Symmetric, trachea midline, No thyromegaly. CVS: RRR, No murmurs or gallops. Peripheral pulses 2+ and equal in all extremities RESP: Unlabored respiratory effort. Clear to auscultation bilaterally. GI: Nontender/Nondistended, No rebound or guarding. MSK:Extremities w/o deformity, Normal Active ROM Skin: Warm, Dry. States for pressor ulcer on his right gluteal region that is tunneling. Currently packed and does not acutely look infected Neuro: Normal Muscle tone, No focal neurological deficits. Psych: Awake, Alert, & Oriented x3. Appropriate mood and affect. Const: Vital Signs, click to edit/add: Vital Signs - 24 hr 04/08/25 13:23 04/08/25 14:19 04/08/25 14:30 Temperature 98.0 F Pulse Rate 95 91 Pulse Rate [Pulse Oximeter] 104 H Respiratory Rate 18 17 Blood Pressure Blood Pressure [Ri ght Upper Arm] 116/39 L Pulse Oximetry 95 96 96 Oxygen Delivery Me thod Room Air 04/08/25 14:32 04/08/25 14:33 04/08/25 14:45 Temperature Pulse Rate 86 89 88 Pulse Rate [Pulse Oximeter] Respiratory Rate 16 15 16 Blood Pressure 111/39 L Blood Pressure [Ri ght Upper Arm] Pulse Oximetry 94 95 98 Oxygen Delivery Id thod Room Air 04/08/25 15:00 04/08/25 15:02 04/08/25 15:15 Temperature Pulse Rate 80 92 90 Pulse Rate [Pulse Oximeter] Respiratory Rate 9 L 12 Blood Pressure 103/48 L Blood Pressure [Ri ght Upper Arm] Pulse Oximetry 95 97 98 Oxygen Delivery Id thod 04/08/25 15:30 04/08/25 15:33 04/08/25 15:45 Temperature Pulse Rate 93 95 94 Pulse Rate [Pulse Oximeter] Respiratory Rate 9 L 10 L Blood Pressure 116/52 L Blood Pressure [Ri ght Upper Arm] Pulse Oximetry 98 96 97 Oxygen Delivery Me thod 04/08/25 16:00 04/08/25 16:01 04/08/25 16:15 Temperature Pulse Rate 98 96 98 Pulse Rate [Pulse Oximeter] Respiratory Rate 10 L 12 Blood Pressure 134/50 L Blood Pressure [Ri ght Upper Arm] Pulse Oximetry 98 96 98 Oxygen Delivery Me thod 04/08/25 16:30 04/08/25 16:32 04/08/25 16:45 Temperature Pulse Rate 99 96 103 H Pulse Rate [Pulse Oximeter] Respiratory Rate 12 10 L Blood Pressure 121/38 L Blood Pressure [Ri ght Upper Arm] Pulse Oximetry 96 96 97 Oxygen Delivery Me thod 04/08/25 17:00 04/08/25 17:01 04/08/25 17:15 Temperature Pulse Rate 101 H 103 H 103 H Pulse Rate [Pulse Oximeter] Respiratory Rate 10 L 12 8 L Blood Pressure 115/40 L Blood Pressure [Ri ght Upper Arm] Pulse Oximetry 96 98 97 Oxygen Delivery Me thod 04/08/25 17:30 04/08/25 17:32 04/08/25 17:45 Temperature Pulse Rate 105 H 102 H 102 H Pulse Rate [Pulse Oximeter] Respiratory Rate 12 12 Blood Pressure 128/49 L Blood Pressure [Ri ght Upper Arm] Pulse Oximetry 97 97 95 Oxygen Delivery Me thod 04/08/25 18:00 04/08/25 18:02 04/08/25 18:15 Temperature Pulse Rate 106 H 108 H 106 H Pulse Rate [Pulse Oximeter] Respiratory Rate 13 13 Blood Pressure 127/40 L Blood Pressure [Ri ght Upper Arm] Pulse Oximetry 97 97 99 Oxygen Delivery Me thod Course Vital Signs Vital signs: Initial Vital Signs Temperature 98.0 F 04/08/25 13:23 Temperature Source Temporal Artery Scan 04/08/25 13:23 Pulse Rate 104 H 04/08/25 13:23 Respiratory Rate 18 04/08/25 13:23 Blood Pressure 116/39 L 04/08/25 13:23 Blood Pressure Mean 64 L 04/08/25 13:23 Blood Pressure Position Supine 04/08/25 13:23 Pulse Oximetry 95 04/08/25 13:23 Oxygen Delivery Method Room Air 04/08/25 13:23 Vital Signs Temperature 98.0 F 04/08/25 13:23 Pulse Rate 104 H 04/08/25 13:23 Respiratory Rate 18 04/08/25 13:23 Blood Pressure 116/39 L 04/08/25 13:23 Pulse Oximetry 95 04/08/25 13:23 Oxygen Delivery Method Room Air 04/08/25 13:23 Temperature 98.0 F 04/08/25 13:23 Pulse Rate 106 H 04/08/25 18:15 Respiratory Rate 13 04/08/25 18:02 Blood Pressure 127/40 L 04/08/25 18:02 Pulse Oximetry 99 04/08/25 18:15 Oxygen Delivery Method Room Air 04/08/25 14:32 Medications Administered Medications: Discontinued Medications Generic Name Dose Route Start Last Admin Trade Name Fior PRN Reason Stop Dose Admin Lactated Ringer's 1,000 mls @ 1,000 mls/hr 04/08/25 13:54 04/08/25 15:25 Lactated Ringers 1000 Ml IV 04/08/25 14:53 Infused .Q1H ONE Infusion Gentamicin Sulfate 400 mg/ 110 mls @ 110 mls/hr 04/08/25 16:44 04/08/25 17:32 Sodium Chloride IVPB 04/08/25 16:45 Not Given ONCE ONE Doxycycline Hyclate 100 mg/ 100 mls @ 100 mls/hr 04/08/25 17:10 04/08/25 18:32 Sodium Chloride IVPB 04/08/25 17:11 Infused ONCE ONE Infusion Medical Decision Making MDM Narrative Medical decision making narrative: Patient is a 75-year-old male presenting to emergency department for abnormal lab work. He is creatinine was 3.9 this morning any had a hemoglobin of 8.1. Based on record review he had a creatinine of 1 on 03/16 and 1.18 and 03/25. The 1.18 was seen in psychiatric. Patient's lab work here in [place] looks like it has been slowly creeping up over the past few weeks and was 2.9 just 6 days ago. Repeat lab work will be ordered. Will give him some fluids for likely dehydration. Lactate ordered possible sepsis. Also order a chest x-ray. L EKG shows no acute concerning abnormalities as reviewed by myself. Chest x-ray reviewed by myself and the radiologist shows no acute concerning abnormalities. ab work returns showing his hemoglobin has improved to 8.6 his baseline is around 10. No signs of bleeding. BMP shows his creatinine is 3.5 with a BUN of 49. Rest of his CMP shows no concerning findings. Considering he does have acute kidney failure I do recommend he will need inpatient treatment. He is fully alert and oriented when he is not sick. I spoke to his daughter on the phone who states he gets confused and altered whenever he gets dehydrated or develops a UTI. There is recent paperwork from 3 days ago showing that the patient spoke to his primary care provider and he wants aggressive treatment. Due to this we will treat him aggressively despite his overall poor appearing health. At this time he is too altered to make any decisions. He did have a recent urinalysis showing a highly resistant UTI. See only medications it it was sensitive she was gentamicin, rifampin, vancomycin. All 3 are nephrotoxic any does have an allergy to vancomycin. He is also sensitive to Macrobid but it is not very effective with poor kidney clearance based on my research. Due to this I do think the patient needs to be transferred. I did speak to hospice 1st who agrees the patient should be transferred due to his complexity. While most of his care through [facility] they do not have any beds available. I spoke to Dr. Munguia of [place] [facility] and she accepted the patient for transfer. I did speak to our pharmacy and she is looking is see what the patient's allergy to vancomycin is. In the meantime we will give him doxycycline as there is intermediate resistance to it. We are hesitant to give gentamicin, which is was available for us, due to the nephrotoxicity of it. We will replace the patient's Eason has do a urinalysis to make sure we get a clean as possible sample. Lab Data Labs: Lab Results 04/08/25 04/08/25 Range/Units 13:50 16:16 WBC 10.99 (4.50-11.00) K/uL RBC 3.46 L (4.30-5.90) m/uL Hgb 8.6 L (13.5-17.5) gm/dL Hct 28.8 L (37.0-53.0) % MCV 83 (80-100) fL MCH 25 L (26-34) pg MCHC 30 L (32-36) gm/dL RDW Coeff of Rey 18.4 H (11.5-15.5) % Plt Count 244 (140-440) K/uL Neut % (Auto) 80.9 H (42.0-72.0) % Lymph % (Auto) 11.3 L (20-44) % [place] % (Auto) 5.8 (0.0-11.0) % Eos % (Auto) 1.7 (0.0-7.0) % Baso % (Auto) 0.0 (0.0-3.0) % Neut # (Auto) 8.90 H (1.7-7.0) K/uL Lymph # (Auto) 1.20 (0.90-2.90) K/uL [place] # (Auto) 0.60 (0.00-0.90) K/UL Eos # (Auto) 0.19 (0.00-0.50) K/uL Baso # (Auto) 0.00 (0.00-0.30) K/uL Abs Immat Gran (auto) 0.03 (0.00-0.30) K/uL Imm/Tot Granulo (auto) 0.3 % Sodium 134 L (135-149) mmol/L Potassium 5.1 (3.6-5.1) mmol/L Chloride 101 (96-114) mmol/L Carbon Dioxide 25 (20-32) mmol/L Anion Gap 8 (7-15) mEq/L BUN 49 H (7-30) mg/dL Creatinine 3.5 H (0.5-1.5) mg/dL Estimated Creat Clear 20.02 Estimated GFR 17 ml/min Glucose 139 H (60-115) mg/dL Lactate 2.2 H 1.6 (0.5-1.9) mmol/L Calcium 9.3 (8.4-10.6) mg/dL Total Bilirubin 0.3 (0.1-1.5) mg/dL AST 27 (12-35) U/L ALT 14 (4-50) U/L Alkaline Phosphatase 154 H (40-150) U/L Total Protein 6.2 (6.0-8.3) g/dL Albumin 3.1 L (3.3-5.0) g/dL Imaging Data Chest x-ray: Attestation: I have reviewed the pertinent imaging results. Radiologist's impression: No acute or significant findings. Dictated by Mendez Soliman MD @ 04/08/2025 2:46:13 PM ECG Data Attestation: I personally reviewed and interpreted this ECG as follows: Prior ECG tracings: available for review Interpretation: Normal sinus rhythm with a rate of 90 beats per minute, normal intervals, normal axis, no ST or T-wave abnormalities. Appears similar previous EKGs on file Discharge Plan Discharge Clinical Impression: Urinary tract infection Qualifiers: Urinary tract infection type: acute cystitis Hematuria presence: without hematuria Qualified Code(s): N30.00 - Acute cystitis without hematuria Acute kidney failure Qualifiers: Acute renal failure type: unspecified Qualified Code(s): N17.9 - Acute kidney failure, unspecified Patient Disposition: Gm Justin Condition: Guarded Prescriptions: No Action bacitracin 500 unit/gram ointment 1 applic topical BID sennosides-docusate sodium [Senna Plus] 8.6-50 mg tablet 2 tab-cap PO DAILY PRN Patient Comments: plus prn baclofen 10 mg tablet 10 mg PO BID Eliquis 5 mg tablet 5 mg PO BID atorvastatin 80 mg tablet 80 mg PO HS latanoprost 0.005 % drops 1 drp ophthalmic (eye) HS Rx Instructions: BOTH EYES Ear Wax Removal Kit 6.5 % drops 5 drp otic (ear) Q7D PRN Patient Comments: every Monday allopurinol 100 mg Tablet 100 mg PO DAILY Qty: 30 0RF clotrimazole 1 % cream 1 applic topical BID sennosides [senna] 8.6 mg tablet 17.2 mg PO DAILY PRN furosemide 40 mg tablet 40 mg PO DAILY metoprolol succinate 100 mg tablet extended release 24 hr 100 mg PO DAILY pantoprazole 40 mg tablet,delayed release (DR/EC) 40 mg PO BID calcium carbonate [Zachary-Gest Antacid] 200 mg calcium (500 mg) tablet,chewable 400 mg PO BID PRN polyethylene glycol 3350 17 gram/dose powder 17 g PO DAILY Patient Comments: plus prn lisinopril 40 mg tablet 40 mg PO DAILY cholecalciferol (vitamin D3) [Vitamin D3] 25 mcg (1,000 unit) tablet 25 mcg PO DAILY acetic acid 0.25 % solution See Rx Instructions .ROUTE BID Patient Comments: [NO ORIGINAL SIG] Rx Instructions: 1 APPLICATION twice a day AND PRN TO BUTTOCK WOUND oxycodone 5 mg tablet 5 mg PO Q6H PRN ferrous sulfate 325 mg (65 mg iron) Tablet 325 mg PO Q48H metformin 500 mg Tablet Extended Release 24 Hr 1,000 mg PO QPM ondansetron HCl 4 mg tablet 4 mg PO BID cetirizine 10 mg tablet 10 mg PO DAILY sertraline 25 mg tablet 25 mg PO DAILY fluticasone propionate 50 mcg/actuation spray,suspension INTRANASAL nitrofurantoin monohyd/m-cryst [Macrobid] 100 mg capsule 100 mg PO Q12H 5 Days Qty: 10 0RF Rx Instructions: must administer with a meal/food Stand Alone Forms: MyHealth Info Instructions
--- NOTE | 2025-04-08 14:04 | CRLHL7_ITS ---
For Patients: As a result of the Century Cures Act, medical imaging exams and procedure reports are released immediately into your electronic medical record. You may view this report before your referring provider. If you have questions, please contact your health care provider. INDICATION: Shortness of breath, weakness. TECHNIQUE: Chest 1 views. COMPARISON: CT chest 04/02/2025. FINDINGS: Cardiovasculature and mediastinum: Heart size and vasculature are normal in caliber and appearance. Lungs and pleural spaces: Lungs are clear. No sign of infiltrate or mass. No sign of pleural effusion. No pneumothorax. Bones and soft tissues: No significant findings. IMPRESSION: No acute or significant findings. Dictated by Mendez Soliman MD @ 04/08/2025 2:46:13 PM (Electronically Signed)
[2025-04-08 14:12] LABS: Hematocrit* 28.8 % (37.0-53.0); Hemoglobin* 8.6 gm/dL (13.5-17.5); Immature Granulocytes Abs Auto 0.03 K/uL (0.00-0.30); Immature Granulocytes Pct Auto 0.3 %; Mean Corpuscular HGB Conc 30 gm/dL (32-36); Mean Corpuscular Hemoglobin 25 pg (26-34); Mean Corpuscular Volume 83 fL (80-100); RDW Coefficient of Variation % 18.4 % (11.5-15.5); Red Blood Count* 3.46 m/uL (4.30-5.90); White Blood Count* 10.99 K/uL (4.50-11.00)
--- OUTSIDE RECORDS SUMMARY | 2025-04-08 14:20 | XMS_ITS | Encounter Summary ---
Author Organization [facility] Address [address] [place] [address] Care Team Providers Care Director Furniture Name Role Phone Jeff Reyes M.D. Primary Care Provider [phone] Reason for Visit * Reason Onset Date Comments Communication 03/14/2025 Regarding appoin tment in April Encounter Details Date Type Department Care Team (Latest Contact Info) Description 03/14/2025 Clinical Communication Department of General Surgery in [place], [place] [address] [place] [address] Roland Benson D.O. [address] [place] [phone] Communication (Regarding appointment in April) Social History [...] daily living? 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 Per Hem Onc note from Dr Vo 03/13: Plan is to eventually proceed with a cholecystectomy. If at any point surgery is considered an emergency then he may proceed with it. Otherwise, for an elective cholecystectomy, per Basco KASANDRA this was be considered as a relatively high-risk procedure with which apixaban would need to be held for 3 days prior to surgery. 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 I would therefore recommend repeating his CT chest angiogram in bilateral lower extremity DVT. If urgent cholecytecotmy wt mary solanomorgan wait unol 07/2025 CT At this time, [...] CDT Hospital Encounter Department of Radiology in [place], [place] [address] [place] [phone] Anuel Nunn M.D. [address] [place] [phone] Qasim Rader M.D. [address] [place] [phone] 04/28/2025 1:00 PM CDT Comprehensive Visit Department of General Surgery in [place], [place] [address] [place] [phone] Roland Benson D.O. [address] [place] [phone] Discharge Disposition: Home or Self Care documented as of this encounter Visit Diagnoses Not on filedocumented in this encounter Additional Health Concerns Assessment Noted Time PHQ-9 Depression Total Score: 10 018 11:00 AM CDT documented as of this encounter Care Teams Director Furniture Relationship Specialty Start Date End Date Jeff Reyes M.D. [address] [place] [address] PCP - General 03/14/24 documented as of this encounter
--- OUTSIDE RECORDS SUMMARY | 2025-04-08 14:20 | XMS_ITS | Encounter Summary ---
Author Organization [facility] Address [address] [place] [address] Care Team Providers Care Quiller Machine Fixer Name Role Phone Jeff Reyes M.D. Primary Care Provider [phone] Reason for Visit * Reason Onset Date Comments Nurse call back 01/31/2025 Encounter Details Date Type Department Care Team (Late st Contact Info) Description 01/31/2025 Clinical Communication Department of Oncology in [place], [place] [address] [place] [address] Pablo Vo M.D. [address] [place] [phone] Nurse call back Social History Tobacco Use [...] daily living? 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 [address] [place] [phone] Qasim Rader M.D. [address] [place] [phone] 04/28/2025 1:00 PM CDT Comprehensive Visit Department of General Surgery in [place], [place] [address] [place] [phone] Roland Benson D.O. [address] [place] [phone] Discharge Disposition: Home or Self Care documented as of this encounter Visit Diagnoses Not on filedocumented in this encounter Additional Health Concerns Infection Onset Date Last Indicated Resolved Time COVID19 Pending 02/22/2025 02/22/2025 02/22/2025 6 :40 AM CDT Assessment Noted Time PHQ-9 Depression Total Score: 10 018 11:00 AM CDT documented as of this encounter Care Teams Quiller Machine Fixer Relationship Specialty Start Date End Date Jeff Reyes M.D. [address] [address] [place] [phone] PCP - General 03/14/24 documented as of this encounter
--- OUTSIDE RECORDS SUMMARY | 2025-04-08 14:20 | XMS_ITS | Encounter Summary ---
Author Organization [facility] Address [address] [place] [address] Care Team Providers Care Microbiology Supervisor Name Role Phone Jeff Reyes M.D. Primary Care Provider [phone] Reason for Visit * Reason Onset Date Comments OPAT 03/03/2025 Completion of th erapy Encounter Details Date Type Department Care Team (Latest Contact Info) Description 03/03/2025 Clinical Communication Department of Infectious Diseases in [address] [phone] Roz Carlos R.N. OPAT (Completion [...] daily living? Patient unable to answer 02/27/2025 [facility] Utilities Answer Date Recorded In the past 12 months has th e [employer], gas, oil, or water company threatened to [...] Sex Assigned at Male 06/26/2018 4:20 PM LEATHERSMITH Legal Sex Male 3:33 AM LEATHERSMITH Gender Identity Not on file Sexual Orientation Not on file documented as of this encounter Miscellaneous Notes * Telephone Encounter - Roz Carlos R.N. - 03/03/2025 9:57 AM CDT Patient completed IV antimicrobial therapy on 03/01/2025. Patient's Midline will be removed today, 03/03/2025 by [facility] nursing staff - this was confirmed [...] CDT Hospital Encounter Department of Radiology in [place], [place] [address] [place] [phone] Anuel Nunn M.D. [address] [place] [phone] Qasim Rader M.D. [address] [place] [phone] 04/28/2025 1:00 PM CDT Comprehensive Visit Department of General Surgery in [place] [id number] [place] [phone] Roland Benson D.O. [address] [place] [phone] Discharge Disposition: Home or Self Care documented as of this encounter Visit Diagnoses Not on filedocumented in this encounter Additional Health Concerns Assessment Noted Time PHQ-9 Depression Total Score: 10 018 11:00 AM CDT documented as of this encounter Care Teams Microbiology Supervisor Relationship Specialty Start Date End Date Jeff Reyes M.D. [address] [place] [phone] PCP - General 03/14/24 documented as of this encounter
--- OUTSIDE RECORDS SUMMARY | 2025-04-08 14:20 | XMS_ITS | Encounter Summary ---
Author Organization [facility] Address [address] [place] [address] Care Team Providers Care Hris Specialist Name Role Phone Jeff Reyes M.D. Primary Care Provider [phone] Reason for Visit * Reason Onset Date Comments Other 03/05/2025 Call Back Encounter Details Date Type Department Care Team (Latest Contact Info) Description 03/05/2025 Clinical Communication Department of Oncology in [place], [place] [address], [place] [address] Pablo Vo M.D. [address] [place] [address] Other (Call Back) Social History [...] daily living? Patient unable to answer 02/27/2025 [facility] Utilities Answer Date Recorded In the past 12 months has [facility] [employer], gas, oil, or water [employer] threatened to shut off services in your [...] Sex Assigned at Male 06/26/2018 4:20 PM STAVE LOG RIPSAW OPERATOR Legal Sex Male 3:33 AM STAVE LOG RIPSAW OPERATOR Gender Identity Not on file Sexual Orientation Not on file documented as of this encounter Plan of Treatment Upcoming Encounters Date Type Department Care Team (Latest Contact Info) Description 04/11/2025 10:00 AM CDT Hospital Encounter Department of Radiology in [place], [place] [address] [place] [phone] Anuel Nunn M.D. [address] [place] [phone] Qasim Rader M.D. [address] [place] [phone] 04/28/2025 1:00 PM CDT Comprehensive Visit Department of General Surgery in [place], [place] [address] [place] [phone] Roland Benson D.O. [address] [place] [phone] Discharge Disposition: Home or Self Care documented as of this encounter Visit Diagnoses Not on filedocumented in this encounter Additional Health Concerns Assessment Noted Time PHQ-9 Depression Total Score: 10 018 11:00 AM CDT documented as of this encounter Care Teams Hris Specialist Relationship Specialty Start Date End Date Jeff Reyes M.D. [address] [place] [phone] PCP - General 03/14/24 documented as of this encounter
--- OUTSIDE RECORDS SUMMARY | 2025-04-08 14:20 | XMS_ITS | Encounter Summary ---
Author Organization [facility] Address [address] [place] [address] Care Team Providers Care Public Safety Director Name Role Phone Jeff Reyes M.D. Primary Care Provider [phone] Reason for Visit * Reason Onset Date Comments Post Hospital Follow-up 02/28/2025 IV antib iotics Encounter Details Date Type Department Care Team (Latest Contact Info) Description 02/28/2025 Clinical Communication Department of Infectious Diseases in [place], [place] [address] [place] [address] Matilda Hammer, R.N. [address] [place] [phone] Post Hospital Follow-up (IV antibiotics) Social History [...] to answer 02/27/2025 [facility] Utilities Answer Date Recorded In the past 12 months has [employer] electric, gas, oil, or water [employer] threatened to shut off services in your [...] Sex Assigned at Male 06/26/2018 4:20 PM BARREL DRILLER Legal Sex Male 3:33 AM BARREL DRILLER Gender Identity Not on file Sexual Orientation Not on file documented as of this encounter Miscellaneous Notes * Telephone Encounter - Matilda Hammer R.N. - 02/28/2025 10:27 AM CDT Reason for call Hospital discharge follow-up phone call with patient. Patient has been discharged on Outpatient Antimicrobial Therapy Monitoring (OPAT) Admission Date: Discharge Date: 02/22/2025 Discharge diagnosis: 02/27/2025 [facility] Outgoing phone call placed to [facility] in [place], [place] and spoke with patients nurse, Lucia. She stated patient, Ren Ramirez notes today is feeling the same than when he left the hospital. . Antibiotic Therapy Plan Ertapenem 1 g IV Q 24 last day of therapy March 01 Patient is receiving IV antibiotics at [facility] in [place], [place] and nursing is administering. Labs Monitoring labs for OPAT purposes: No labs needed. Line Care Patient was discharged with Midline. Line care will be completed weekly by nursing staff at [place], [place]. RN at facility to remove mid line upon completion of IV antibiotics. Rn will follow up if mid line removed, 03/01/2025 on 03/03/2025. Imaging NA Speciality Care Follow-Up NA Infectious Disease Follow-up Patient will follow-up in ID clinic on an as-needed basis. Teach-Back Completed: Yes Above information was reviewed with patients nurse during today's phone call. Plan as per [facility] Infectious Disease [phone] documented in this encounter Plan of Treatment Upcoming Encounters Date Type Department Care Team (Latest Contact Info) Description 04/11/2025 10:00 AM CDT Hospital Encounter Department of Radiology in [place] [phone] Anuel Nunn M.D. [address] [place] [phone] Qasim Rader M.D. [address] [place] [phone] 04/28/2025 1:00 PM CDT Comprehensive Visit Department of General Surgery in [address] [phone] Roland Benson D.O. [address] [place] [phone] Discharge Disposition: Home or Self Care documented as of this encounter Visit Diagnoses Not on filedocumented in this encounter Additional Health Concerns Assessment Noted Time PHQ-9 Depression Total Score: 10 018 11:00 AM CDT documented as of this encounter Care Teams Public Safety Director Relationship Specialty Start Date End Date Jeff Reyes M.D. [address] [place] [phone] PCP - General 03/14/24 documented as of this encounter
--- OUTSIDE RECORDS SUMMARY | 2025-04-08 14:20 | XMS_ITS | Encounter Summary ---
Author Organization [facility] Address [address] [place] [address] Care Team Providers Care Car Framer Name Role Phone Jeff Reyes M.D. Primary Care Provider [phone] Encounter Details Date Type Department Care Team (Late st Contact Info) Description 02/25/2025 Orders Only [facility] PCP [facility] Jeff Reyes M.D. [address] [place] [phone] Social History Tobacco Use Types [...] Assigned at Male 06/26/2018 4:20 PM MACHINE TECH Legal Sex Male 3:33 AM MACHINE TECH Gender Identity Not on file Sexual Orientation Not on file documented as of this encounter Plan of Treatment Upcoming Encounters Date Type Department Care Team (Latest Contact Info) Description 04/11/2025 10:00 AM CDT Hospital Encounter Department of Radiology in [address] [phone] Anuel Nunn M.D. [address] [place] [phone] Qasim Rader M.D. [address] [place] [phone] 04/28/2025 1:00 PM CDT Comprehensive Visit Department of General Surgery in [address] [place] [phone] Roland Benson D.O. [address] [place] [phone] Discharge Disposition: Home or Self Care documented as of this encounter Visit Diagnoses Not on filedocumented in this encounter Additional Health Concerns Assessment Noted Time PHQ-9 Depression Total Score: 10 018 11:00 AM CDT documented as of this encounter Care Teams Car Framer Relationship Specialty Start Date End Date Jeff Reyes M.D. [address] [place] [phone] PCP - General 03/14/24 documented as of this encounter
--- OUTSIDE RECORDS SUMMARY | 2025-04-08 14:21 | XMS_ITS | Encounter Summary ---
Author Organization [facility] Address [address] [place] [address] Care Team Providers Care Regional Branch Manager Name Role Phone Jeff Reyes M.D. Primary Care Provider [phone] Encounter Details Date Type Department Care Team (Late st Contact Info) Description 02/21/2025 Clinical Communication Department of Oncology in [place], [place] [address] [place] [phone] Pablo Vo M.D. [address] [place] [phone] Social History Tobacco Use Types Packs/Day Years [...] daily living? Patient unable to answer 02/27/2025 [facility] Utilities Answer Date Recorded In the past 12 months has e [place], gas, oil, or water company threatened to [...] Sex Assigned at Male 06/26/2018 4:20 PM LEAD SQL DEVELOPER Legal Sex Male 3:33 AM LEAD SQL DEVELOPER Gender Identity Not on file Sexual Orientation Not on file documented as of this encounter Plan of Treatment Upcoming Encounters Date Type Department Care Team (Latest Contact Info) Description 04/11/2025 10:00 AM CDT Hospital Encounter Department of Radiology in [place], [place] [address] [place] [phone] Anuel Nunn M.D. [facility] [place] [phone] Qasim Rader M.D. [address] [place] [phone] 04/28/2025 1:00 PM CDT Comprehensive Visit Department of General Surgery in [place], [place] [address] [place] [phone] Roland Benson D.O. [address] [place] [phone] Discharge Disposition: Home or Self Care documented as of this encounter Visit Diagnoses Not on filedocumented in this encounter Additional Health Concerns Infection Onset Date Last Indicated Resolved Time COVID19 Pending 02/22/2025 02/22/2025 02/22/2025 6 :40 AM CDT Assessment Noted Time PHQ-9 Depression Total Score: 10 018 11:00 AM CDT documented as of this encounter Care Teams Regional Branch Manager Relationship Specialty Start Date End Date Jeff Reyes M.D. [address] [place] [phone] PCP - General 03/14/24 documented as of this encounter
--- OUTSIDE RECORDS SUMMARY | 2025-04-08 14:21 | XMS_ITS | Clinical Summary ---
Author Organization [facility] Address [address] [place] [address] Care Team Providers Care Bean Snapper Name Role Phone Jeff Reyes M.D. Primary Care Provider Source Comments Patient records contain information from all sites at [facility]. For routine questions regarding patient records, call [phone] during business hours, M-F 8:00 AM - 5:00 PM Central Time. Record requests for emergency care only can be directed to [phone] at any time.[facility] Allergies Active Allergy Reactions Criticality Noted Date Comments Haemophilus Influenzae Other (see comments) High Vancomycin Vancomycin Infusion Reaction Medium 05/26/2018 Red Man Syndrome Medications * This document contains information received from the source organization and may not represent a complete record from that organization. sennosides-docus ate sodium (SENOKOT-S) 8.6-50 mg per tabletIndication s:Neurogenic Bowel Take 1 tablet by mouth 2 (two) times a day as needed for constipation. 8 Active latanoprost (XALATAN) 0.005 % ophthalmic solution Administer 1 drop into both eyes daily. 3 Active metoprolol succinate (TOPROL-XL) 100 mg 24 hr tabletIndication s:Hypertension Essential Primary Take 1 tablet (100 mg total) by mouth daily. Do not crush or chew. 90 tablet 3 Active pantoprazole (PROTONIX) 40 mg EC tablet Take 1 tablet (40 mg total) by mouth 2 (two) times a day before breakfast and dinner. 180 tablet 3 3 Active baclofen (LIORESAL) 10 mg tabletIndication s:Multiple Sclerosis (HCC) Take 1 tablet (10 mg total) by mouth 2 (two) times a day. 60 tablet 3 Active lisinopriL (PRINIVIL,ZESTRI L) 40 mg tabletIndication s:Hypertension Essential Primary Take 1 tablet (40 mg total) by mouth daily. 90 tablet 3 Active calcium carbonate (TUMS) 500 mg (200 mg calcium) chewable tablet Chew 2 tablets (400 mg of calcium total) 2 (two) times a day. 3 Active polyethylene glycol (MIRALAX) 17 gram [...] 2 (two) times a day. 4 Active AntifungaL, clotrimazole, 1 % cream [...] 5 Active diclofenac sodium (Voltaren) 1 % gelIndications:M ultiple Sclerosis (HCC) Apply 2 g topically 2 (two) times a day as needed (pain). 5 Active cholecalciferol 25 mcg (1,000 unit) tablet Take 1 tablet (25 mcg total) by mouth daily. 5 Active senna 8.6 mg tablet Take 17.2 mg by mouth every morning. 5 Active atorvastatin (Lipitor) 80 mg tablet Take 1 tablet (80 mg total) by mouth at bedtime. 90 tablet 3 5 Active apixaban (Eliquis) 5 mg tablet Take 5 mg by mouth 2 (two) times a day. 5 Active cetirizine (ZyrTEC) 10 mg tablet Take [...] nostril 2 (two) times a day. 5 Active acetic acid 0.25 % irrigation (sterile) Apply to buttocks wounds topically as needed for wound care Active nitroglycerin (Nitrostat) 0.[address] 0.4 mg under the tongue every 5 (five) minutes as needed for chest pain. 5 Active BD PosiFlush Normal Saline 0.9 injection Use 10 mL via irrigation every day Active metFORMIN XR (Glucophage-XR) 500 mg 24 hr tablet Take 1,000 mg by mouth daily with evening meal. Active saliva substitution (Biotene Dry Mouth Oral Rinse) mouthwash Apply 1 Application to the mouth or throat as needed (dry mouth). Active oxyCODONE (Roxicodone) 5 mg immediate release tabletIndication s:Acute Pain Exception Take 1 tablet (5 mg total) by mouth every 6 (six) hours as needed for severe pain or score 7-10 of 10 Indication: Acute Pain Exception. 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 Assessment & Plan (07/04/2018 2:56 PM SUBSTATION DESIGNER): Continue I&O catheterization as needed Multiple Sclerosis 06/03/2003 Assessment & Plan (07/04/2018 3:32 PM SUBSTATION DESIGNER): -Continue to follow with Neurology for further recommendations Resolved Problems Problem Noted Date Diagnosed Date Resolved Date Sprain Ankle Initial Right 11/08/2022 0 11/09/2022 Obesity Unspecified 03/21/2019 11/10/19 23 Urinary Tract Infection Site Not Specified 07/04/2018 11/09/2022 Overview (07/04/2018): Completed ciprofloxacin 500 mg b.i.d. for an antibiotic course of 14 days (last dose on 06/08/2018) Assessment & Plan (07/04/2018 3:31 PM SUBSTATION DESIGNER): -Patient denies any urinary symptoms today on exam. -Continue care cranberry 450 mg daily Failure Renal Acute (Acute Kidney Injury) 05/27/2018 10/19/2022 Non-ST Elevation Myocardial Infarction 05/26/2018 10/23/2019 Assessment & Plan (07/04/2018 10:14 AM SUBSTATION DESIGNER): 1. Continue aspirin 81 mg daily 2. [...] Clinical Communication Department of General Surgery in [address] [phone] Roland Benson D.OAmparo Communication (Regarding appointment in April) 03/13/2025 2:40 PM CDT Telemedicine Department of Oncology in [place], [place] [address] [phone] Pablo Vo M.D. 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 Other (Call Back) 03/04/2025 8:29 AM CDT - 03/04/2025 11:59 PM CDT Hospital Encounter Department of Radiology in [place], [place] [address] [phone] Pablo oV M.D. Embolus Pulmonary (HCC) Discharge Disposition: Home or Self Care 03/03/2025 Clinical Communication Department of Infectious Diseases in [address] [phone] Roz Carlos R.N. OPAT (Completion of therapy) 02/28/2025 Clinical Communication Department of Infectious Diseases in [address] [phone] Matilda Hammer R.N. Post Hospital Follow-up (IV antibiotics) 02/27/2025 9:45 AM CDT Ancillary Procedure Department of Oncology 02/26/2025 1:45 PM CDT Ancillary Procedure Department of Wound Ostomy 02/26/2025 1:40 PM CDT Ancillary Procedure Department of Wound Ostomy 02/26/2025 1:15 PM CDT Ancillary Procedure Department of Wound Ostomy 02/25/2025 Orders Only [facility] Jeff Sullivan M.D. 02/24/2025 11:25 AM CDT Ancillary Procedure Department of Wound Ostomy 02/24/2025 11:20 AM CDT Ancillary Procedure Department of Wound Ostomy 02/24/2025 11:15 AM CDT Ancillary Procedure Department of Wound Ostomy 02/22/2025 12:35 AM CDT Ancillary Procedure Department of Nursing 02/22/2025 - 02/27/2025 12:16 PM CDT Hospital Encounter [facility], Fourth Floor [address] [place] [address] Nneka Thomas M.B.B.S., M.D. Xu, Qiping, M.D. Byrd, David W, M.D. 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 02/04/2025 12:11 PM CDT - 02/04/2025 1:42 PM CDT Hospital Encounter Department of Radiology in [place], [place] [address] [place] [address] Anuel Nunn M.D. Cholecystitis Discharge Disposition: Home or Self Care 01/31/2025 Clinical Communication Department of Oncology in [place], [place] [address] [place] [address] Pablo Vo M.D. Nurse call back 01/23/2025 5:26 PM CDT - 01/24/2025 12:38 AM CDT Emergency [facility] Emergency Department [address] [place] [phone] Ollie Walters M.D. 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 from Last 3 Months [...] Recorded In the past 12 months has [facility] [employer], gas, oil, or water [employer] threatened to shut off services in your [...] Sex Assigned at Male 06/26/2018 4:20 PM SUBSTATION DESIGNER Legal Sex Male 3:33 AM SUBSTATION DESIGNER Gender Identity Not on file Sexual [...] CDT Hospital Encounter Department of Radiology in [address] [phone] Anuel Nunn M.D. [address] [place] [phone] Qasim Rader M.D. [address] [place] [phone] 04/28/2025 1:00 PM CDT Comprehensive Visit Department of General Surgery in [address] [phone] Roland Benson D.O. [address] [place] [phone] Discharge Disposition: Home or Self Care Health [...] 10/20/2023 10/19/2022 Depression Screening (Annual PHQ-2) 07/24/2024 Office Visit for Blood Pressure Check / Re-check 02/06/2025 02/07/2024 Visit: Medicare Annual Wellness 02/07/2025 02/07/2024 Influenza Vaccine (#1) 2025 , 05/16/2023, 05/08/2003, Additional history exists Creatinine Level (Kidney Function Test) 03/25/2026 03/25/2025, 03/11/2025, 03/04/2025, Additional history exists Potassium Level 03/25/2026 03/25/2025, 02/21, 03/04/2025, Additional history exists Sodium Level 03/25/2026 03/25/2025, 02/21, 03/04/2025, Additional history exists Fasting Glucose for Diabetes Screening 03/25/2028 03/25/2025, 03/11/2025, 03/04/2025, Additional history exists DTaP,Tdap,and Td Vaccines (3 [...] this topic Medical Devices Implanted Type Area Snaker Device Identifier Shelf Expiration Date Model / Serial / Lot Scrw St 24pthrd 8.0x105 - [id number] Implanted:Qty : 1 on 12/15/2022 by Jana Don M.D. at [facility] Hardware e.g. pins/screws/ rods Right: Femur [employer] [id number] / / Scrw Vthrd Fast 7.0x105 - [id number] Implanted:Qty : 2 on 12/15/2022 by Jana Don M.D. at [facility] Hardware e.g. pins/screws/ rods Right: [employer]ur [employer] [id number] / / Washr Flt 1.5x13 - [id number] Implanted:Qty : 4 on 12/15/2022 by Jana Don M.D. at [facility] Hardware e.g. pins/screws/ rods Right: Femur [...] POCT, B Routine 02/24/2025 5:07 PM CDT OH NEG PRESS WND THRPY <=50SCM Routine 02/24/2025 12:15 PM CDT Pressure Ulcer Of Unspecified Site Stage 4 (HCC) OH NEG PRESS WND THRPY <=50SCM Routine 02/24/2025 [...] Hyperlipidemia On Treatment Atherosclerotic Heart Disease Of [place] Coronary Artery Without Angina Pectoris from Last [...] to 02/21/2025. No evidence of right heartstrain. us Pablo Vo M.D. IMG CT PROCEDURES Final Result * Glucose, POCT (02/27/2025 11:38 AM CDT) Only the most recent of23 resultswithin the time period is included. Glucose, POCT, B 137 70 - 140 mg/dL 02/27/2025 11:38 AM CDT MKTO Blood 02/27/2025 11:3 8 AM CDT 02/27/2025 11:48 AM CDT us Generic Rals LAB POCT ORDERABLES-MANUAL Final Result [facility] [address] [place] [address], [place] [facility] [facility] in [place] [address] [place] [address] * Place midline catheter (single lumen) (02/27/2025 [...] In System IMG NON RAD IMAGING PROCE ASHOK Final Result IIMS NA * (ABNORMAL) Comprehensive Metabolic Panel (02/27/2025 [...] Sung M.D. LAB BLOOD ADD-ON Final Result [facility] [place] [address], [facility] MKTO [facility] in [place] [address] [place] [address] * Wound Vac (02/26/2025 2:08 PM CDT) Narrative Vivian Smith, RAmparoNAmparo, CWON - 02/26/2025 2:08 PM CDT Vivian [...] Chand M.D. LAB BLOOD ADD-ON Final Result [facility] [address] [place] [address], [facility] MKTO [facility] [place] [address] [place] [address] * (ABNORMAL) Hepatic Function Panel (02/25/2025 7:59 [...] Chand M.D. LAB BLOOD ADD-ON Final Result [facility] [address] [place] [address], [facility] MKTO [facility] [place] [address] [place] [address] * (ABNORMAL) Basic Metabolic Panel (02/25/2025 7:59 AM CDT) Only the most recent of5 resultswithin the time period is included. Pathologist [facility] Potassium, P 3.8 3.6 - 5.2 mmol/L [...] Chand M.D. LAB BLOOD ADD-ON Final Result [facility] [address] [place] [address], [facility] MKTO [facility] [place] [address] [place] [address] * [place] NEG PRESS WND THRPY <=50SCM (02/24/2025 12:15 [...] PROCEDURE/MINOR SURGICAL ORDERAB LES Final Result * [place] NEG PRESS WND THRPY <=50SCM (02/24/2025 12:13 [...] - 8.0 mg/dL 02/23/2025 8:52 AM CDT [facility] Blood (Blood, Venous) 02/23/2025 6:17 AM CDT 02/23/2025 8:40 AM CDT us Nelson Chand M.D. LAB BLOOD ADD-ON Final Result [facility] [address] [place] [address], [facility] in [place] [address] [place] [address] * IR Percutaneous Cholecystostomy Tube Check (02/22/2025 [...] provided by a care associate team physician. Patient's family member was ready to learn with no apparent learning barriers were identified. Post-procedure care explained; patient's family member expressed understanding of the content. PROCEDURE DETAILS: Sedation: None. Sedation time: Not applicable. Estimated Blood Loss: None. TECHNIQUE: The indwelling 14 Lithuanian drainage catheter was injected with contrast, and [...] current medications. Patient education provided by acare associate team physician. Patient's family member was ready to learn with noapparent learning barriers were identified. Post-procedure care explained;patient's family member expressed understanding of the content. PROCEDURE DETAILS: Sedation: None. Sedation time: Not applicable. Estimated Blood Loss: None. TECHNIQUE: The indwelling 14 Lithuanian drainage catheter was injected with contrast, andmultiple [...] hepatic ductal dilatation. us Elder Barrientos M.D. IMHeidi IR PROCEDURES Final Res ult * RAD [...] provided by a care associate team physician. Patient's family member was ready to learn [...] current medications. Patient education provided by acare associate team physician. Patient's family member was ready to learn [...] Comment:Specimen Source Site : Fluid us Nelson Cahnd M.D. LAB MICROBIOLOGY - GENERAL ORDER TOMY Final Result [facility] [place] [address], [facility] MKTO [facility] [place] [address] [place] [address] * Crystal Identification, Body Fluid (02/22/2025 12:30 [...] FLUIDS AND STOOLS ORDER TOMY Final Result [facility] [address] [place] [address], [facility] MKTO [place] [address] * Cell Count and Differential, Body Fluid (02/22/2025 12:30 PM CDT) Fluid Type RightWrist 02/22/2025 2:18 PM CDT MKTO Gross Appearance Slightly Cloudy 02/22/2025 2:18 PM CDT MKTO Total Nucleated Cells 150 /mcL 02/22/2025 2:18 PM CDT MKTO Comment: ----REFERENCE VALUE---- Synovial: <150 Peritoneal: <500 Pleural: <500 Pericardial: <500 ----ADDITIONAL INFORMATION---- This test has been modified from the shift superintendent caustic cresylate's instructions. Its performance characteristics were determined by [facility] in a manner consistent with CLIA [...] Edited Result - Final Performing Organization Address [facility] Co de Phone Number [facility] [address] [place] [address] * Gram Stain (02/22/2025 12:30 PM CDT) Gram Stain No organisms seen. White blood cells present. Stain performed on concentrated cytospin preparation. 02/22/2025 2:13 PM CDT MK Fluid (Synovial Fluid, Right Wrist) 02/22/2025 12:30 PM CDT 02/22/2025 12:48 PM CDT Comment:Specimen Source Site : Fluid us Nelson Chand M.D. LAB MICROBIOLOGY - GENERAL ORDER TOMY Final Result Performing Organization Address [facility] Co de Phone Number [facility] [address] [place] [address] * Bacterial Culture, Anaerobic + Susceptibility (02/22/2025 12:30 PM CDT) Bacterial Culture, Anaerobic No growth after 7 days of incubation. 03/01/2025 7:49 AM CDT TO Fluid (Synovial Fluid, Right Wrist) 02/22/2025 12:30 PM CDT 02/22/2025 12:48 PM CDT Comment:Specimen Source Site : Fluid us Nelson Chand M.D. LAB MICROBIOLOGY - GENERAL ORDER TOMY Final Result Performing Organization Address [facility] Co de Phone Number [facility] [address] [place] [address], [facility] MKTO [facility] [place] [address] [place] [address] * ECG 12 Lead (02/22/2025 6:47 AM CDT) Only the most recent of2 resultswithin the time period is included. Ventricular Rate ECG/Min 98 BPM MUSE [place] Interval 206 ms MUSE QRSD Interval 90 ms MUSE QT Interval 316 ms MUSE QTC Interval 403 ms MUSE P [place] 68 degrees MUSE R [place] 11 degrees MUSE T Wave [place] 69 degrees MUSE 02/22/2025 6:47 AM CDT [...] test using the Xpert Xpress SARS-CoV-2/Flu/RSV assay ([employer] performed on the [employer] DX systems has received Emergency Use Authorization (EUA) by the U.S. Food and Drug Administration. Performance characteristics were verified by [facility] in a manner consistent with CLIA requirements. Fact sheets for this Emergency Use Authorization (EUA) assay can be found at the following links: For Healthcare Providers: https://www.fda.gov/media/859298/download For Patients: https://www.fda.gov/media/180808/download Specimen Source Swab, Nasopharynx 02/22/2025 5:08 AM CDT MKTO Swab (Nasopharynx) 02/22/2025 5:02 AM CDT 02/22/2025 5:08 AM CDT Nneka Yañez M.D. LAB MICROBIOLOG Y - GENERAL ORDERABLES Final Result [facility] [address] [place] [address], [facility] MKTO [place] [address] * (ABNORMAL) Urinalysis, Dipstick (02/22/2025 5:02 AM [...] 8.0 02/22/2025 5:17 AM CDT MKTO Specific Smilax >1.035(A) 1.001 - 1.035 02/22/2025 5:17 AM CDT MKTO Urobilinogen 1.0 0.2 - 1.0 mg/dL 02/22/2025 5:17 AM CDT MKTO Urine (Urine, Midstream) 02/22/2025 5:02 AM CDT 02/22/2025 5:17 AM CDT us Nneka Yañez M.D. LAB URINE ORDER TOMY Final Result Performing Organization Address [facility] Co de Phone Number [facility] [address] [place] [address] * Bacterial Culture, Aerobic + Susceptibility, Urine (02/22/2025 5:02 AM CDT) Urine Culture No growth after 1 day of incubation. 02/23/2025 8:47 AM CDT MKTO Urine (Urine, Indwelling Catheter) 02/22/2025 5:02 AM CDT 02/22/2025 5:11 AM CDT Comment:Specimen Source Site : Urine us Nneka Yañez M.D. LAB MICROBIOLOG Y - GENERAL ORDERABLES Final Result Performing Organization Address [facility]/ZIP Co de Phone Number [facility] [address] [place] [address], [place] [address] * DX Knee Right 4+ Views (02/22/2025 [...] joint effusion. Chondrocalcinosis. Small suprapatellar spur. Nneka RaderBShankar Austin [facility] PROCEDURES Final Result * DX [...] although to a much lesser degree than [id number]. Nneka Story.Shankar Bartholomew [facility] PROCEDURES Final Result * Bacteria [...] MICROBIOLOG Y - GENERAL ORDERABLES Final Result [facility] [address] [place] [address] * Lactate for Sepsis with Reflex (02/22/2025 4:28 AM CDT) Only the most recent of2 resultswithin the time period is included. Pathologist [facility] Lactate, B 1.9 0.5 - 2.2 mmol/L 02/22/2025 5:01 AM CDT MKTO Blood (Blood, Venous) 02/22/2025 4:28 AM CDT 02/22/2025 4:48 AM CDT us Nneka Yañez M.D. LAB BLOOD NON A DD-ON Final Result [facility] [address] [place] [address] * Buttock/Sacrum-Nursing Image Exam (02/22/2025 12:35 AM CDT) 02/22/2025 12:3 3 AM CDT Narrative IIOK - 02/22/2025 12:35 AM CDT This order has been created and auto-finalized to support the import of images acquired without order. The clinical documentation to support these images can be found on the encounter that produced images. us Provider Not In System IMG NON RAD IMAGING PROCE DURES Final Result Performing Organization Address [facility] Co de Phone Number IIMS NA * CT [...] PROCEDURES Final R esult Performing Organization Address [facility] Co de Phone Number IIMS NA * [...] male with history of cholecystitis requiring 14 Lithuanian cholecystostomy catheter, routine 3 month exchange COMPARISON: [...] Right lateral abdomen intercostal transhepatic Catheter: 14 Lithuanian 25 cm multipurpose pigtail drain Technique: The indwelling catheter was injected with contrast. A guidewire was inserted through the catheter, and the catheter was exchanged for a new 14 Lithuanian catheter. Contrast was injected confirming the location [...] Right lateral abdomen intercostal transhepatic Catheter: 14 [place]ian 25 cm multipurpose pigtail drain Technique: The indwelling catheter was injected with contrast. A guidewirewas inserted through the catheter, and the catheter was exchanged for anew 14 Lithuanian catheter. Contrast was injected confirming the location [...] URINE ORDERABLES Fin al Result [facility] [address] [place] [address], [facility] [address] [place] [address] * Microscopic Automated (01/23/2025 8:37 PM CDT) [facility] Microscopy Normal 01/23/2025 8:57 PM CDT DTL RBC <3 <3 /hpf 01/23/2025 8:57 PM CDT DTL WBC 1-3 /hpf 01/23/2025 8:57 PM CDT DTL Comment: ----REFERENCE VALUE---- <4 (Males) <11 (Females) Casts, Hyaline 11-20 /lpf 01/23/2025 8:57 PM CDT DTL Urine 01/23/2025 8:37 PM CDT 01/23/2025 8:49 PM CDT Chung Mehta M.D. LAB URINE ORDERABLES Fin al Result [facility] [address] [place] [address], [facility] [address] [place] [address] * pH, Urine (01/23/2025 8:37 PM CDT) [facility] pH, U 5.4 4.5 - 8.0 01/23/2025 9:0 3 PM CDT DT Urine 01/23/2025 8:37 PM CDT 01/23/2025 8:49 PM CDT Chung Mehta M.D. LAB URINE ORDERABLES Fin al Result [facility] [address] [place] [address], [facility] [address] [place] [address] * Osmolality, Urine (01/23/2025 8:37 PM CDT) [facility] Osmolality, U 409 150 - 1150 mOsm/kg 01/23/2025 9:03 PM CDT DTL Urine 01/23/2025 8:37 PM CDT 01/23/2025 8:49 PM CDT Chung Mehta M.D. LAB URINE ORDERABLES Fin al Result [facility] [address] [place] [address], [facility] [address] [place] [address] * Urinalysis, with Microscopic: Urine, Catheter (01/23/2025 8:37 PM CDT) Pathologist [facility] Source Urine, Urine, Catheter 01/23/2025 8:49 PM [...] URINE ORDERABLES Fin al Result [facility] [address] [place] [address], [facility] [address] [place] [address] * (ABNORMAL) Sedimentation Rate (01/23/2025 8:36 PM CDT) Sedimentation Rate, B 109(H) 3 - 28 mm/h 01/23/2025 9:29 PM CDT DTL Blood (Blood, Venous) 01/23/2025 8:36 PM CDT 01/23/2025 8:47 PM CDT Chung Mehta M.D. LAB BLOOD ADD-ON Final R esult Performing Organization Address City/[facility]/ZIP Co de Phone Number [facility] [address] [place] [address], [facility] [address] [place] [address] * (ABNORMAL) CRP (C-Reactive Protein) (01/23/2025 8:36 PM CDT) Pathologist [facility] C-Reactive Protein (CRP), S 124.8(H) <5.0 mg/L 01/23/2025 9:28 PM CDT DT Blood (Blood, Venous) 01/23/2025 8:36 PM CDT 01/23/2025 9:01 PM CDT Chung Mehta M.D. LAB BLOOD ADD-ON Final R esult Performing Organization Address City/[facility] Co de Phone Number [facility] [address] [place] [address], [facility] [address] [place] [address] * CT Abdomen Pelvis with IV Contrast [...] Lactate, B (01/23/2025 6:55 PM CDT) Pathologist [facility] Lactate, B 1.2 0.5 - 2.2 mmol/L 01/23/2025 7:05 PM CDT [facility] Blood (Blood, Venous) 01/23/2025 6:55 PM CDT 01/23/2025 7:02 PM CDT Ollie Walters M.D. LAB BLOOD NON ADD-ON Final Res ult [facility] [address] [place] [address], [facility] [address] [place] [address] * (ABNORMAL) CBC without Differential (01/23/2025 6:55 PM CDT) Pathologist [facility] Hemoglobin 10.6(L) 13.2 - 16.6 g/dL 01/23/2025 [...] Center & Hospital/ZIP Co de Phone Number [facility] [address] [place] [address] * Lipase (01/23/2025 6:55 PM CDT) Lipase, S 16 13 - 60 U/L 01/23/2025 7: 42 PM CDT DTL Blood (Blood, Venous) 01/23/2025 6:55 PM CDT 01/23/2025 7:25 PM CDT Ollie Walters M.D. LAB BLOOD ADD-ON Final Result Performing Organization Address [facility] de Phone Number [facility] [address] DTL [facility] [address] [place] [address] * (ABNORMAL) Lipid Panel (11/05/2024 9:32 AM [...] Organization Address City/[facility] de Phone Number [facility] [address] [place] [address], [place] [facility] [address] [place] [address] from Last 3 Months or Most Recently Relevant to Health Maintenance Insurance MEDICA Advance Directives For more information, please contact: [phone] Documents on File Type Date Recorded Patient Telemarketing Representative Expl anation Advance Directives 08/08/2024 6:58 AM [...] 5:41 PM 12/15/2022 11:01 AM Care Teams Bean Snapper Relationship Specialty Start Date End Date Jeff Reyes [facility].D. [facility] [place] [address] PCP - General 03/14/24
[2025-04-08 14:22] LABS: Albumin* 3.1 g/dL (3.3-5.0); Chloride* 101 mmol/L (96-114); Potassium* 5.1 mmol/L (3.6-5.1); Sodium* 134 mmol/L (135-149)
[2025-04-08] MEDS: LACTATED RINGERS 1000 ML 1,000 ML IV (14:22)
[2025-04-08 14:25] LABS: Alanine Aminotransferase* 14 U/L (4-50); Anion Gap 8 mEq/L (7-15); Aspartate Amino Transferase* 27 U/L (12-35); Carbon Dioxide* 25 mmol/L (20-32); Total Protein* 6.2 g/dL (6.0-8.3)
[2025-04-08 14:26] LABS: Calcium* 9.3 mg/dL (8.4-10.6); Glucose* 139 mg/dL (60-115)
[2025-04-08 14:29] LABS: Lymphocytes Absolute Auto 1.20 K/uL (0.90-2.90); Slide Review Reflex No
[2025-04-08 14:41] LABS: Alkaline Phosphatase* 154 U/L (40-150); Bilirubin Total* 0.3 mg/dL (0.1-1.5); Blood Urea Nitrogen* 49 mg/dL (7-30); Creatinine* 3.5 mg/dL (0.5-1.5); Est. Creatinine Clearance* 20.02; Estimated Glomerular Filt Rate 17 ml/min
[2025-04-08 14:51] LABS: Lactate Sepsis w/Reflex* 2.2 mmol/L (0.5-1.9)
[2025-04-08 16:18] LABS: Lactate Sepsis 2 Hour 1.6 mmol/L (0.5-1.9)
[2025-04-08] MEDS: DOXYCYCLINE HYCLATE 100 MG in 0.9 % SODIUM CHLORIDE Mini-bag 100 ML IVPB (17:31)
[2025-04-08] MEDS: lidocaine HCL 2 % JELLY (TOP) STERILE 6 ML UR (19:00)
[2025-04-08] MEDS: LACTATED RINGERS 1000 ML 1,000 ML 125 ML IV (20:00)
[2025-04-08 20:22] LABS: Appearance Urine Slightly Cloudy (Clear)
== END 2025-04-09 00:21 | disposition short-term general hospital (02) ==
PROVIDERS: Emergency Provider Student in an Organized Health Care Education/Training Program; PCP Family Medicine
DX: N17.9 Acute kidney failure, unspecified (principal); N39.0 Urinary tract infection, site not specified
CPT/HCPCS: 36415; 71045; 80053; 81001; 83605; 85025; 87086; 93005; 99285; J7120

== ENCOUNTER 2025-04-09 00:01 | Outpatient (CLI) | payer MEDICARE, SELFPAY | END 2025-04-09 00:02 | disposition home or self-care (01) | PROVIDERS: PCP Family Medicine; Visit Provider Family Medicine | DX: N30.00 Acute cystitis without hematuria (principal); N17.9 Acute kidney failure, unspecified | CPT/HCPCS: A0425; A0434 ==

== ENCOUNTER 2025-04-16 12:35 | Outpatient (CLI) | payer MEDICARE, SELFPAY | END 2025-04-16 12:36 | disposition home or self-care (01) | LOC: WOUND 12:35 | PROVIDERS: PCP Family Medicine; Visit Provider Surgery | DX: L89.324 Pressure ulcer of left buttock, stage 4 (principal); M86.68 Other chronic osteomyelitis, other site; G35 Multiple sclerosis; G82.20 Paraplegia, unspecified; Z99.3 Dependence on wheelchair; Z96.0 Presence of urogenital implants; I26.09 Other pulmonary embolism with acute cor pulmonale; Z79.01 Long term (current) use of anticoagulants | CPT/HCPCS: 11042 ==

== ENCOUNTER 2025-04-22 13:00 | Outpatient (RCR) | payer MEDICARE, SELFPAY | END 2025-04-22 23:59 | disposition home or self-care (01) | LOC: WOUND 13:00 | PROVIDERS: PCP Family Medicine; Visit Provider Physician Assistant Surgical | DX: M86.68 Other chronic osteomyelitis, other site (principal); L89.324 Pressure ulcer of left buttock, stage 4; G35 Multiple sclerosis; G82.20 Paraplegia, unspecified; I25.10 Atherosclerotic heart disease of native coronary artery without angina pectoris; I10 Essential (primary) hypertension; E11.9 Type 2 diabetes mellitus without complications; Z99.3 Dependence on wheelchair; Z79.01 Long term (current) use of anticoagulants; Z96.0 Presence of urogenital implants; Z53.8 Procedure and treatment not carried out for other reasons; Z79.4 Long term (current) use of insulin | CPT/HCPCS: 82962; 85018; G0277; G0463 ==

== ENCOUNTER 2025-04-23 13:12 | Outpatient (CLI) | payer MEDICARE, SELFPAY | END 2025-04-23 13:13 | disposition home or self-care (01) | LOC: WOUND 13:12 | PROVIDERS: PCP Family Medicine; Visit Provider Surgery | DX: L89.324 Pressure ulcer of left buttock, stage 4 (principal); M86.68 Other chronic osteomyelitis, other site; G35.D Multiple sclerosis, unspecified; G82.20 Paraplegia, unspecified; Z99.3 Dependence on wheelchair | CPT/HCPCS: 11042 ==

== ENCOUNTER 2025-04-30 12:31 | Outpatient (CLI) | payer MEDICARE, SELFPAY | END 2025-04-30 12:32 | disposition home or self-care (01) | LOC: WOUND 12:31 | PROVIDERS: PCP Family Medicine; Visit Provider Surgery | DX: L89.324 Pressure ulcer of left buttock, stage 4 (principal); M86.68 Other chronic osteomyelitis, other site; G35.D Multiple sclerosis, unspecified; G82.20 Paraplegia, unspecified; Z99.3 Dependence on wheelchair | CPT/HCPCS: 11042 ==

== ENCOUNTER 2025-05-07 12:28 | Outpatient (CLI) | payer MEDICARE, SELFPAY | END 2025-05-07 12:29 | disposition home or self-care (01) | LOC: WOUND 12:29 | PROVIDERS: PCP Family Medicine; Visit Provider Surgery | DX: L89.324 Pressure ulcer of left buttock, stage 4 (principal); M86.68 Other chronic osteomyelitis, other site; G35.D Multiple sclerosis, unspecified; G82.20 Paraplegia, unspecified; Z99.3 Dependence on wheelchair | CPT/HCPCS: G0463 ==

== ENCOUNTER 2025-05-14 12:31 | Outpatient (CLI) | payer MEDICARE, SELFPAY | END 2025-05-14 12:32 | disposition home or self-care (01) | LOC: WOUND 12:31 | PROVIDERS: PCP Family Medicine; Visit Provider Surgery | DX: L89.324 Pressure ulcer of left buttock, stage 4 (principal); L89.152 Pressure ulcer of sacral region, stage 2; M86.68 Other chronic osteomyelitis, other site; G35.D Multiple sclerosis, unspecified; Z99.3 Dependence on wheelchair | CPT/HCPCS: G0463 ==

== ENCOUNTER 2025-05-21 12:30 | Outpatient (CLI) | payer MEDICARE, SELFPAY | END 2025-05-21 12:31 | disposition home or self-care (01) | LOC: WOUND 12:30 | PROVIDERS: PCP Family Medicine; Visit Provider Surgery | DX: L89.324 Pressure ulcer of left buttock, stage 4 (principal); M86.68 Other chronic osteomyelitis, other site; G35.D Multiple sclerosis, unspecified; Z99.3 Dependence on wheelchair | CPT/HCPCS: 11042 ==

== ENCOUNTER 2025-05-22 13:00 | Outpatient (RCR) | payer MEDICARE, SELFPAY | END 2025-05-23 23:59 | disposition home or self-care (01) | LOC: WOUND 13:00 | PROVIDERS: PCP Family Medicine; Visit Provider Nurse Practitioner Family | DX: M86.68 Other chronic osteomyelitis, other site (principal); L89.324 Pressure ulcer of left buttock, stage 4; G35.D Multiple sclerosis, unspecified; G82.20 Paraplegia, unspecified; M06.9 Rheumatoid arthritis, unspecified; I25.10 Atherosclerotic heart disease of native coronary artery without angina pectoris; I10 Essential (primary) hypertension; Z99.3 Dependence on wheelchair; Z96.0 Presence of urogenital implants; I26.09 Other pulmonary embolism with acute cor pulmonale; Z79.01 Long term (current) use of anticoagulants | CPT/HCPCS: 82962; G0277 ==

== ENCOUNTER 2025-06-04 12:30 | Outpatient (CLI) | payer MEDICARE, SELFPAY | END 2025-06-04 12:31 | disposition home or self-care (01) | LOC: WOUND 12:30 | PROVIDERS: PCP Family Medicine; Visit Provider Surgery | DX: L89.324 Pressure ulcer of left buttock, stage 4 (principal); M86.68 Other chronic osteomyelitis, other site; G35.D Multiple sclerosis, unspecified; G82.20 Paraplegia, unspecified; Z99.3 Dependence on wheelchair; R05.1 Acute cough | CPT/HCPCS: 11042 ==

== ENCOUNTER 2025-06-04 14:33 | Outpatient (REF) | payer MEDICARE, SELFPAY ==
--- OUTSIDE RECORDS SUMMARY | 2025-05-28 11:30 | XMS_ITS | Encounter Summary ---
Author Organization [facility] Address [address] [place] [address] Care Team Providers Care Service Counselor Name Role Phone Jeff Reyes M.D. Primary Care Provider [phone] Reason for Visit * Reason Comments Patient Education David noyola Encounter Details Date Type Department Care Team (Late st Contact Info) Description 05/28/2025 11:30 AM MANAGER TECHNOLOGY Nurse Only Department of General Surgery in [place], [place] [address] [place] [address] Dena Salinas, RAmparoN., [facility] [address] [place] [address] Patient Education (David noyola) Social History Tobacco Use Types Packs/Day Years Used Date Smoking Tobacco: Former Cigarettes 0 Q uit: 1977 Passive Smoke Exposure: Never [...] daily living? Patient unable to answer 02/27/2025 [facility] Utilities Answer Date Recorded In the past 12 months has th e [employer], gas, oil, or water company threatened to [...] Sex Assigned at Male 06/26/2018 4:20 PM MANAGER TECHNOLOGY Legal Sex Male 3:33 AM MANAGER TECHNOLOGY Gender Identity Not on file Sexual Orientation Not on file documented as of this encounter Progress Notes * Dena Salinas R.N., CBCN - 05/28/2025 11:30 AM CST Education Documentation Treating Constipation Caused By Pain Medications [id number], taught by Dena Salinas R.N., CBCN at 06/02/2025 10:17 AM. Learner: Family, Patient Readiness: Acceptance Method: Explanation, Handout Response: Able to Teach Back Comment: hold eliquis 3 days prior to surgery Acute Pain and the Healing Process GH2638, taught by Dena Salinas R.N., CBCN at 06/02/2025 10:17 AM. Learner: Family, Patient Readiness: Acceptance Method: Explanation, Handout Response: Able to Teach Back Comment: hold eliquis 3 days prior to surgery Surgical Site Infection Reducing Your Risk BH9390, taught by Dena Salinas R.N., CBCN at [...] his Eliquis safely per the Oncology team. GER TECHNOLOGY documented in this encounter Plan of Treatment Upcoming Encounters Date Type Department Care Team (Late st Contact Info) Description 06/05/2025 8:00 AM MANAGER TECHNOLOGY Hospital Encounter Department of Radiology in [place], [place] [address] [place] [address] Anuel Nunn M.D. [address] [place] [address] Rosenda Pedroza APRN, C.N.P., M.S.N. [address] [place] [address] 07/14/2025 11:15 AM MANAGER TECHNOLOGY Appointment Department of Radiology in [place], [place] [address] [place] [phone] Pablo Vo M.D. [address] [place] [phone] 07/22/2025 4:20 PM MANAGER TECHNOLOGY Office Visit Department of Oncology in [place], [place] [address] [place] [phone] Pablo Vo M.D. [address] [facility] [place] [phone] Scheduled Procedures Name Priority Associated Diagnoses Date/Ti wy ROBOTIC-ASSISTED MULTIPORT CHOLECYSTECTOMY Cholecystitis Chronic documented as of this encounter Visit Diagnoses Diagnosis Cholecystitis Chronic- Primary documented in this encounter Additional Health Concerns Assessment Noted Time PHQ-9 Depression Total Score: 10 018 11:00 AM CDT documented as of this encounter Care Teams Service Counselor Relationship Specialty Start Date End Date Jeff Reyes M.D. [address] [place] [address] PCP - General 03/14/24 documented as of this encounter
--- OUTSIDE RECORDS SUMMARY | 2025-05-28 11:30 | XMS_ITS | Encounter Summary ---
Author Organization [facility] Address [address] [place] [address] Care Team Providers Care Network Professional Name Role Phone Jeff Reyes M.D. Primary Care Provider [phone] Reason for Referral * Outpatient (Routine) - Authorized Specialty Diagnoses / Procedures Referred By Jono donohue Referred To Contact Anesthesiology Diagnoses Cholecystitis Chronic [place] D[facility]. [facility] [place] [address] Phone: tel: fax: [facility] Referral ID Status Reason Start Date Expiration Date V isits Requested Visits Authorized [id number] Authorized 05/28/2025 11/27/2026 1 1 CH SERVICE SPECIALIST Reason for Visit * Reason Comments Consult 75 year old male wit h multiple medical comorbidities, cholecystitis requiring cholecystostomy tube, cleared by cardiology for possible cholecystectomy on 11/15/2024, please re-evaluate for cholecystectomy candidacy * Outpatient (Routine) - Closed Specialty Diagnoses / Procedures Referred By Jono donohue Referred To Contact General Surgery Diagnoses Cholecystitis Anuel Nunn M.D. [address] [place] [address] Phone: tel: fax: [facility] Referral ID Status Reason Start Date Expiration Date V isits Requested Visits Authorized [id number] Closed Specialty Services Required 02/04/2025 08/06/2026 1 1 Encounter Details Date Type Department Care Team (Latest Contact Info) Description 05/28/2025 11:30 AM BRANCH SERVICE SPECIALIST Comprehensive Visit Department of General Surgery in [place], [place] [address] [place] [phone] [place] D[facility] [place] [address] Cholecystitis Chronic (Primary Dx) Social [...] Patient unable to answer 02/27/[address] [facility] Utilities Answer Date Recorded In the [...] Sex Assigned at Male 06/26/2018 4:20 PM BRANCH SERVICE SPECIALIST Legal Sex Male 3:33 AM BRANCH SERVICE SPECIALIST Gender Identity Not on file Sexual Orientation Not on file documented as of this encounter Last Filed Vital Signs Vital Sign Reading Time Taken Comments Blood Pressure 165/74 05/28/2025 11:30 AM BRANCH SERVICE SPECIALIST Pulse 54 05/28/2025 11:30 AM BRANCH SERVICE SPECIALIST Temperature 36.1 C (96.9 F) 05/28/2025 11:22 AM BRANCH SERVICE SPECIALIST Respiratory Rate - - Oxygen Saturation - - Inhaled Oxygen Concentration - - Weight 104 kg (229 lb) 05/28/2025 11:22 AM BRANCH SERVICE SPECIALIST at facility this morning per patient Height 182.9 cm (6' 0.01) 05/28/2025 1 1:22 AM BRANCH SERVICE SPECIALIST Body Mass Index 31.05 05/28/2025 11:22 AM BRANCH SERVICE SPECIALIST documented in this encounter Progress Notes * [...] some confusion and acute kidney injury in [place] in March. Since then he has not [...] to proceed with robotic cholecystectomy in July. CH SERVICE SPECIALIST documented in this encounter Plan of Treatment Upcoming Encounters Date Type Department Care Team (Late st Contact Info) Description 06/05/2025 8:00 AM BRANCH SERVICE SPECIALIST Hospital Encounter Department of Radiology in [place], [place] [address] [place] [address] Anuel [place] M.D. [facility] [place] [address] Rosenda Pedroza APRN CAmparoN.P., M.S.N. [address] [place] [address] 07/14/2025 11:15 AM BRANCH SERVICE SPECIALIST Appointment Department of Radiology in [place], [place] [address] [phone] [place] Vo M.D. [address] [place] [address] 07/22/2025 4:20 PM BRANCH SERVICE SPECIALIST Office Visit Department of Oncology in [place], [place] [address] [phone] [place] Vo M.D. [address] [place] [phone] Scheduled Procedures Name Priority Associated Diagnoses Date/Ti co ROBOTIC-ASSISTED MULTIPORT CHOLECYSTECTOMY Cholecystitis Chronic Scheduled Referrals Name Type Priority Associated Diagnoses Order Schedule Preoperative Evaluation KAYLIE consult (clinic) Outpatient Referral Routine Cholecystitis Chronic 1 Occurrences starting 05/28/2025 until 08/28/2026 documented as of this encounter Visit Diagnoses Diagnosis Cholecystitis Chronic- Primary documented in this encounter Additional Health Concerns Assessment Noted Time PHQ-9 Depression Total Score: 10 018 11:00 AM CDT documented as of this encounter Care Teams Network Professional Relationship Specialty Start Date End Date Jeff Reyes M.D. [facility] [place] [phone] PCP - General 03/14/24 documented as of this encounter
[2025-06-04 15:35] LABS: PCR FLU A Negative PCR FLU A (Negative); PCR FLU B Negative PCR FLU B (Negative); PCR RSV Negative PCR RSV (Negative); SARS PCR* Negative SARS-CoV-2 (Negative)
--- OUTSIDE RECORDS SUMMARY | 2025-06-05 00:15 | XMS_ITS | Encounter Summary ---
Author Organization [facility] Address Formerly [facility] [facility] [place] [address] Care Team Providers Care Hot Metal Mixer Operator Helper Name Role Phone Bijan Crawford Primary Care Provider [phone] Rl Evans MD Unavailable [phone] Encounter Details Date Type Department Care Team (Late st Contact Info) Description 04/21/2025 Telephone [facility] Infectious Disease Clinic [place] [address] [place] [address] Rl Evans MD [address] [facility], [facility] [address] [place] [address] Social History Tobacco Use Types Packs/Day Years Used Date Smoking Tobacco: Former Cigarettes Q uit: 07/24/1971 Smokeless Tobacco: Never Sex and Gender Information Value Date Recorded Sex Assigned at Not on file Legal 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 Evans... Ar. Can you please reach out to this patient or his daughter to see if this appointment is still needed? I originally scheduled this visit hoping that he would have been seen by Plastic surgery already but it seems like it hasn't happened yet. We are not actively managing him at this point. Bethany Ramirez CMA documented in this encounter Plan of Treatment Not on file documented as of this encounter Visit Diagnoses Not on filedocumented in this encounter Care Teams Hot Metal Mixer Operator Helper Relationship Specialty Start Date End Date Bijan Crawford [address] [place] [address] PCP - General Family Medicine 01/20/25 Rl Evans MD [address] [place] [address], [facility] [address] [place] [address] Assigned Infectious Disease Provider 03/15/25 documented as of this encounter
--- OUTSIDE RECORDS SUMMARY | 2025-06-05 00:15 | XMS_ITS | Encounter Summary ---
Author Organization [facility] Address [address] [facility] [place] [address] Care Team Providers Care Wage And Salary Administrator Name Role Phone Bijan Crawford Primary Care Provider [phone] Rl Evans MD Unavailable [phone] Encounter Details Date Type Department Care Team (Late st Contact Info) Description 05/27/2025 Telephone [facility] Infectious Disease Clinic [place] [address] [place] [address] Rl Evans MD [address] [facility], [facility] [address] [place] [address] Social History Tobacco Use Types Packs/Day Years Used Date Smoking Tobacco: Former Cigarettes Q uit: 07/24/1971 Smokeless Tobacco: Never Sex and Gender Information Value Date Recorded Sex Assigned at Not on file Legal Sex Male 2:17 PM TIE BUCKER Gender Identity Not on file Sexual Orientation Not on file documented as of this encounter Miscellaneous Notes * Telephone Encounter - Pedro Muñoz - 05/27/2025 8:17 AM CST Spoke w patient regarding 05/26/25 no [address] appt w Dr. Evans - Per patient - provider informed that appt was not needed. 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- BUCKER documented in this encounter Plan of Treatment Not on file documented as of this encounter Visit Diagnoses Not on filedocumented in this encounter Care Teams Wage And Salary Administrator Relationship Specialty Start Date End Date Bijan Crawford [address] [place], [place] [phone] PCP - General Family Medicine 01/20/25 Rl Evans MD [address] [place] [address], [facility] [address] [place] [address] Assigned Infectious Disease Provider 03/15/25 documented as of this encounter
--- OUTSIDE RECORDS SUMMARY | 2025-06-05 00:15 | XMS_ITS | Clinical Summary ---
Author Organization [employer] [facility] Address [facility] [place] [address] Care Team Providers Care Seed Cleaning Machine Operator Name Role Phone Birdie Taveras RN Unavailable [phone] Karrie Singer RN Unavailable [phone] Bijan Crawford MD Primary Care Provider Allergies Active Allergy Reactions Criticality Noted Date [...] 80 mg by mouth at bedtime. Active calcium carbonate (Tums) 200 mg calcium (500 mg) chewable tablet Chew 1,000 mg by mouth two times daily. Active cholecalciferol (Vitamin D) 1,000 unit tablet Take 1,000 units by mouth once daily. Active ondansetron (ZOFRAN) 4 mg tablet Take 4 mg by mouth four times daily. Active pantoprazole (PROTONIX) 40 mg delayed-release tablet Take 40 mg by mouth two times daily before meals. Active polyethylene glycol (MIRALAX; GLYCOLAX) 17 g per packet packet Mix 1 Packet in liquid then take by mouth once daily. Active clotrimazole (LOTRIMIN) 1 % cream Apply topically to affected area(s) two times daily. To groin Active bacitracin (Antibiotic (bacitracin zinc)) 500 unit/gram ointment Apply topically to affected area(s) two times daily. Active acetic acid 0.25% 0.25 % irrigation Irrigate to affected area two times daily. To buttock wounds Active sennosides-docus ate (Senna-S) (8.6-50 mg) tablet Take 1 Tablet by mouth once daily if needed for Constipation. Active latanoprost (XALATAN) 0.005 % ophthalmic solution Place 1 Drop into both eyes at bedtime. Active carbamide peroxide (Debrox) 6.5 % otic solution Place 5 Drops into both ears every Monday. At bedtime every Monday Active fluticasone (50 mcg per actuation) nasal solution (FLONASE) Inhale 1 [place] in both nostrils two times daily. 02/19/20 25 Active nitroglycerin 0.[address] 0.4 mg under the tongue every 5 minutes if needed. 02/06/20 25 Active sertraline (ZOLOFT) 25 mg tablet Take 25 mg by mouth once daily. 03/28/20 25 Active ferrous sulfate 325 mg (65 mg iron) tablet Take 325 mg by mouth once every other day. Active cetirizine (ZYRTEC) 10 mg tabletIndication s:Allergic rhinitis due to other allergic trigger, unspecified seasonality Take 1 Tablet (10 mg) by mouth once daily if needed for Allergy Symptoms or Rhinitis. 04/11/20 25 Active metoprolol succinate (TOPROL XL) 50 mg sustained-releas e tabletIndication s:Coronary artery disease, unspecified vessel or lesion type, unspecified whether angina present, unspecified whether [place] or transplanted heart Take 1 Tablet (50 mg) by mouth once daily. 04/13/20 25 Active oxyCODONE (ROXICODONE) 5 mg immediate release tabletIndication s:Chronic ulcer of sacral region, unspecified ulcer stage (HC) Take 1 Tablet (5 mg) by mouth every 6 hours if needed for Pain. 16 Tablet 04/12/20 25 Active baclofen 10 mg tabletIndication s:Chronic ulcer of sacral region, unspecified ulcer stage (HC) Take 1 Tablet (10 mg) by mouth two times daily. 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 06/29/2018 Overview (02/06/2025): History of [place] Neurogenic bowel 05/26/2018 Primary hypertension 05/28/2015 Overview [...] Encounters Date Type Department Care Team Description 06/02/2025 10:30 AM LOOM FIXER APPRENTICE Office Visit [facility] [address] [place] [address] Markel Schultz MD Sleep Consult 06/02/2025 Travel 05/30/2025 Lab Requisition [facility] [phone] Carmenza Quiroz, STORE COORDINATOR 05/26/2025 Lab Requisition [facility] [phone] Carmenza Quiroz, STORE COORDINATOR 05/16/2025 Lab Requisition [facility] [phone] Carmenza Quiroz, STORE COORDINATOR 05/02/2025 Lab Requisition [facility] [phone] Carmenza Quiroz, STORE COORDINATOR 04/29/2025 Lab Requisition [facility] [address] [place] [address] Carmenza Quiroz, STORE COORDINATOR 04/29/2025 Lab Requisition [facility] [phone] Carmenza Quiroz, STORE COORDINATOR 04/21/2025 Lab Requisition [facility] [phone] Carmenza Quiroz, STORE COORDINATOR 04/15/2025 Lab Requisition [facility] [address] [place] [address] Carmenza Quiroz, STORE COORDINATOR 04/11/2025 Travel 04/09/2025 1:18 AM CDT - 04/12/2025 12:43 PM CDT Hospital Encounter [facility] [address] [place] [address] [facility], [facility] Hospitalists [facility], MD Claudio López, Twyla Bojorquez MD Allergic rhinitis due to other allergic trigger, unspecified seasonality (Primary Dx); Chronic ulcer of sacral region, unspecified ulcer stage (HC); Coronary artery disease, unspecified vessel or lesion type, unspecified whether angina present, unspecified whether [place] or transplanted heart Discharge Disposition: [facility] 04/07/2025 Lab Requisition [facility] [phone] Bijan Crawford MD 04/01/2025 Lab Requisition [facility] [address] [place] [address] Carmenza Quiroz, STORE COORDINATOR 03/19/2025 Lab Requisition [facility] [phone] Carmenza Quiroz NP 03/14/2025 Lab Requisition [facility] [phone] Unknown, Doctor 03/13/2025 Lab Requisition [facility] [phone] Unknown, Doctor 03/07/2025 Lab Requisition [facility] [phone] Carmenza Quiroz NP from Last 3 Months Immunizations Immunization Administration Dates Next Due COVID-19 vaccine (Lookery NTGiggle 30mcg/0.3mL) 12YO+ BIVALENT PF, MDV 05/17/2022 Influenza, [...] or yelled at (see row info)? No 04/11/2025 Interpersonal Safety Abuse 12 - 18 Not on file 04/11/2025 Interpersonal Safety Ambulatory Vulnerability No t on file 04/11/2025 Utilities Answer Date Recorded Do you have trouble paying f or utilities (for example, heat, electricity, water, phone)? 1 02/06/2025 Sex and Gender Information Value Date Recorded Sex Assigned at Not on file Legal Sex Male 1:19 PM CDT Gender Identity Not on file Sexual Orientation Not on file Obstetrics History Last Filed Vital Signs Vital Sign Reading Time Taken Comments Blood Pressure 129/71 06/02/2025 10:06 AM LOOM FIXER APPRENTICE Pulse 69 06/02/2025 10:06 AM LOOM FIXER APPRENTICE Temperature 36.3 C (97.4 F) 04/12/2025 8:42 AM CDT Respiratory Rate 18 04/12/2025 8:42 AM CDT Oxygen Saturation 94% 06/02/2025 10:06 AM LOOM FIXER APPRENTICE Inhaled Oxygen Concentration - - Weight 76.3 kg (168 lb 3.2 oz) 04/11/2025 6:03 A M CDT Height 182.9 cm (6') 06/02/2025 10:06 AM LOOM FIXER APPRENTICE Body Mass Index 22.81 02/06/2025 12:00 PM CDT Plan of Treatment Upcoming Encounters Date Type Department Care Team (Late st Contact Info) Description 07/14/2025 11:15 AM LOOM FIXER APPRENTICE Appointment [facility] [address] [place] [address] Health Maintenance Due Date Last Done Comments Depression screening for age 12+ 1962 BMI (ht and wt on same day) for age 18+ 01/04/1968 Hepatitis C screening for ag e 18-79 01/04/1968 Colonoscopy through age 75 1995 Lipids for age 45-75 1995 Medicare Wellness for age 65+ 2015 Influenza Vaccine (#1) 2025 4, 05/08/2003, 05/23/2002 Tetanus booster 04/08/2029 04/08/2019, 08/21/2009, 08/16/1999 Zoster (shingles) series for age 50+ Completed 03/09/2018, 01/04/2018, 08/21/2009 Pneumococcal series for age 50+ Completed 03/21/2019, 04/21/2015, 08/03/2011 RSV vaccine for adults or Completed 05/17/2024 Hepatitis B series for 19+ Aged Out N o longer eligible based on patient's age to complete this topic Procedures Procedure Name Priority Date/Time Associated Diagnosis Comments CBC WITH AUTO DIFFERENTIAL Routine 06/03/2025 7:52 AM LOOM FIXER APPRENTICE Osteomyelitis, unspecified (HC) COMP METABOLIC PANEL Routine 06/03/2025 7:52 AM LOOM FIXER APPRENTICE Osteomyelitis, unspecified (HC) CBC WITH AUTO DIFFERENTIAL Routine 06/03/2025 7:52 AM LOOM FIXER APPRENTICE Osteomyelitis, unspecified (HC) RED CELL MORPHOLOGY Routine 05/27/2025 7 :41 AM LOOM FIXER APPRENTICE Osteomyelitis, unspecified (HC) PLATELET ESTIMATE Routine 05/27/2025 7:4 1 AM LOOM FIXER APPRENTICE Osteomyelitis, unspecified (HC) MANUAL DIFFERENTIAL Routine 05/27/2025 7 :41 AM LOOM FIXER APPRENTICE Osteomyelitis, unspecified (HC) CBC WITH AUTO DIFFERENTIAL Routine 05/27/2025 7:41 AM LOOM FIXER APPRENTICE Osteomyelitis, unspecified (HC) BASIC METABOLIC PANEL Routine 05/27/2025 7:41 AM LOOM FIXER APPRENTICE Osteomyelitis, unspecified (HC) CBC WITH AUTO DIFFERENTIAL Routine 05/27/2025 7:41 AM LOOM FIXER APPRENTICE Osteomyelitis, unspecified (HC) CBC WITH AUTO DIFFERENTIAL Routine 05/06/2025 8:55 AM CDT Type 2 diabetes mellitus without complications (HC) Anemia, unspecified BASIC METABOLIC PANEL Routine 05/06/2025 8:55 AM CDT Type 2 diabetes mellitus without complications (HC) Anemia, unspecified CBC WITH AUTO DIFFERENTIAL Routine 05/06/2025 8:55 AM CDT Type 2 diabetes mellitus without complications (HC) Anemia, unspecified CBC WITH AUTO DIFFERENTIAL Routine 04/29/2025 8:06 AM CDT Osteomyelitis, unspecified (HC) Type 2 diabetes mellitus without complications (HC) BASIC METABOLIC PANEL Routine 04/29/2025 8:06 AM CDT Osteomyelitis, unspecified (HC) Type 2 diabetes mellitus without complications (HC) CBC WITH AUTO DIFFERENTIAL Routine 04/29/2025 8:06 AM CDT Osteomyelitis, unspecified (HC) Type 2 diabetes mellitus without complications (HC) RED CELL MORPHOLOGY Routine 04/22/2025 7 :45 AM CDT Weakness PLATELET ESTIMATE Routine 04/22/2025 7:4 5 AM CDT Weakness CBC WITH AUTO DIFFERENTIAL Routine 04/22/2025 7:45 AM CDT Weakness HEPATIC FUNCTION PANEL Routine 7:45 AM CDT Weakness BASIC METABOLIC PANEL Routine 04/22/2025 7:45 AM CDT Weakness CBC WITH AUTO DIFFERENTIAL Routine 04/22/2025 7:45 AM CDT Weakness RED CELL MORPHOLOGY Routine 04/15/2025 8 :17 AM CDT Encounter for other specified aftercare Acute kidney failure, unspecified PLATELET ESTIMATE Routine 04/15/2025 8:1 7 AM CDT Encounter for other specified aftercare Acute kidney failure, unspecified MANUAL DIFFERENTIAL Routine 04/15/2025 8 :17 AM CDT Encounter for other specified aftercare Acute kidney failure, unspecified CBC WITH AUTO DIFFERENTIAL Routine 04/15/2025 8:17 AM CDT Encounter for other specified aftercare Acute kidney failure, unspecified BASIC METABOLIC PANEL Routine 04/15/2025 8:17 AM CDT Encounter for other specified aftercare Acute kidney failure, unspecified CBC WITH AUTO DIFFERENTIAL Routine 04/15/2025 8:17 AM CDT Encounter for other specified aftercare Acute kidney failure, unspecified GLUCOSE METER Timed 04/12/2025 12:18 PM CDT RED CELL MORPHOLOGY Timed 04/12/2025 7 :25 AM CDT BLOOD GAS,VENOUS Early AM 04/12/2025 7:25 AM CDT BASIC METABOLIC PANEL Early AM 04/12/2025 7:25 AM CDT CBC W PLT NO DIFF Early AM 04/12/2025 7:2 5 AM CDT GLUCOSE METER Timed 04/12/2025 6:25 AM CDT GLUCOSE METER Timed 04/11/2025 10:00 PM CDT POTASSIUM Timed 04/11/2025 8:37 PM CDT GLUCOSE METER Timed 04/11/2025 4:49 PM CDT RED CELL MORPHOLOGY Timed 04/11/2025 1 :15 PM CDT BLOOD GAS,VENOUS Timed 04/11/2025 1:15 PM CDT CREATININE Timed 04/11/2025 1:15 PM CDT SODIUM Today 04/11/2025 1:15 PM CDT CBC W PLT NO DIFF Timed 04/11/2025 1:1 5 PM CDT GLUCOSE METER Timed 04/11/2025 11:54 AM CDT IR PERCUTANEOUS TUBE CHANGE Routine 04/11/2025 11:22 AM CDT GLUCOSE METER Timed 04/11/2025 6:07 AM CDT GLUCOSE METER Timed 04/10/2025 9:22 PM CDT IMMUNOFIXATION ELP, URINE Today 04/10/2025 6:56 PM CDT GLUCOSE METER Timed 04/10/2025 4:58 PM CDT GLUCOSE METER Timed 04/10/2025 1:54 PM CDT SCAN CORRESP-EKG RESULTS 04/10/2025 11:55 AM CDT SCAN CORRESP-LABORATORY RESULTS 04/10/2025 11:55 AM CDT SCAN CORRESP-LABORATORY RESULTS 04/10/2025 11:55 AM CDT SCAN CORRESP-IMAGING 04/10/2025 11:55 AM CDT CBC WITH AUTO DIFFERENTIAL Early AM 04/10/2025 7:43 AM CDT BASIC METABOLIC PANEL Early AM 04/10/2025 7:43 AM CDT CBC WITH AUTO DIFFERENTIAL Early AM 04/10/2025 7:43 AM CDT GLUCOSE METER Timed 04/09/2025 10:34 PM CDT GLUCOSE METER Timed 04/09/2025 5:35 PM CDT GLUCOSE METER Timed 04/09/2025 2:16 PM CDT GLUCOSE METER Timed 04/09/2025 6:49 AM CDT IMMUNOFIXATION,SERUM ANDREW 04/09/2025 6:45 AM CDT PROTEIN ELP SERUM W REFLEX ANDREW 04/09/2025 6:45 AM CDT FERRITIN ANDREW 04/09/2025 6:45 AM CDT IRON PLUS IRON BINDING CAP ANDREW 04/09/2025 6:45 AM CDT EXTRA TUBE GOLD/SST Today 04/09/2025 6 :45 AM CDT CBC W PLT NO DIFF Early AM 04/09/2025 6:4 5 AM CDT MAGNESIUM Early AM 04/09/2025 6:45 AM CDT CREATININE Early AM 04/09/2025 6:45 AM CDT POTASSIUM Early AM 04/09/2025 6:45 AM CDT SODIUM Early AM 04/09/2025 6:45 AM CDT US RENAL AND BLADDER COMPLETE PORTABLE Routine 04/09/2025 3:02 AM CDT URINALYSIS MICROSCOPIC Timed 2:55 AM CDT FRACT EXCR OF SODIUM, URINE Today 04/09/2025 2:55 AM CDT PROTEIN/CREAT RATIO,URINE Today 04/09/2025 2:55 AM CDT UA W/ SEDIMENT EXAM REFLEXED PER CRITERIA Today 04/09/2025 2:55 AM CDT FRACT EXCR OF SODIUM, SERUM Today 04/09/2025 2:04 AM CDT FRACT EXCR OF SODIUM Today 04/09/2025 2:04 AM CDT LACTATE VENOUS STAT 04/09/2025 2:04 AM CDT PROCALCITONIN STAT 04/09/2025 2:04 AM CDT BASIC METABOLIC PANEL STAT 04/09/2025 2:04 AM CDT RED CELL MORPHOLOGY Routine 04/08/2025 7 :47 [...] (HC) Acute cholecystitis HEPATIC FUNCTION PANEL Routine 7:47 AM CDT Essential (primary) hypertension Hyperkalemia [...] diabetes mellitus without complications (HC) Anemia, unspecified from Last 3 Months Results * (ABNORMAL) CBC WITH AUTO DIFFERENTIAL (06/03/2025 7:52 AM [facility]) Only the most recent of11 resultswithin the time period is included. WHITE BLOOD COUNT 10.5 4.5 - 11.0 thou/cu mm 06/03/2025 10:27 AM [facility] RED BLOOD COUNT 4.59 4.30 - 5.90 mil/cu mm 06/03/2025 10:27 AM [facility] HEMOGLOBIN 10.5(L) 13.5 - 17.5 g/dL 06/03/2025 10:27 AM [facility] HEMATOCRIT 37.3 37.0 - 53.0 % 06/03/2025 10:27 AM [facility] MCV 81 80 - 100 fL 06/03/2025 10:27 AM [facility] MCH 22.9(L) 26.0 - 34.0 pg 06/03/2025 10:27 AM [facility] MCHC 28.2(L) 32.0 - 36.0 g/dL 06/03/2025 10:27 AM [facility] RDW 18.7(H) 11.5 - 15.5 % 06/03/2025 10:27 AM [facility] PLATELET COUNT 177 140 - 440 thou/cu mm 06/03/2025 10:27 AM [facility] MPV 10.1 6.5 - 11.0 fL 06/03/2025 10:27 AM [facility] % NEUT 73.0 % 06/03/2025 10:27 AM [facility] % LYMPH 15.7 % 06/03/2025 10:27 AM [facility] % MONO 8.2 % 06/03/2025 10:27 AM [facility] % EOS 2.9 % 06/03/2025 10:27 AM [facility] % BASO 0.2 % 06/03/2025 10:27 AM [facility] ABSOLUTE NEUTROPHILS 7.7(H) 1.7 - 7.0 thou/cu mm 06/03/2025 10:27 AM [facility] ABSOLUTE LYMPHOCYTES 1.7 0.9 - 2.9 thou/cu mm 06/03/2025 10:27 AM [facility] ABSOLUTE MONOCYTES 0.9(H) <0.9 thou/cu mm 06/03/2025 10:27 AM [facility] ABSOLUTE EOSINOPHILS 0.3 <0.5 thou/cu mm 06/03/2025 10:27 AM [facility] ABSOLUTE BASOPHILS 0.0 <0.3 thou/cu mm 06/03/2025 10:27 AM [facility] Blood BLOOD SPECIMEN / Unknown Butterfly / Unknown 06/03/2025 7:52 AM LOOM FIXER APPRENTICE 06/03/2025 9:52 AM [facility] us Carmenza Quiroz STORE COORDINATOR HEMATOLOGY Final Resul t [facility] [address] [id number] * (ABNORMAL) COMP METABOLIC PANEL (06/03/2025 7:52 AM [facility]) SODIUM 138 136 - 145 mmol/L 06/03/2025 11:32 AM [facility] POTASSIUM 4.2 3.5 - 5.1 mmol/L 06/03/2025 11:32 AM [facility] CHLORIDE 102 98 - 107 mmol/L 06/03/2025 11:32 AM [facility] CO2,TOTAL 25 22 - 29 mmol/L 06/03/2025 11:32 AM [facility] ANION GAP 11 5 - 18 06/03/2025 11:32 AM [facility] GLUCOSE 137(H) 70 - 99 mg/dL 06/03/2025 11:32 AM [facility] CALCIUM 9.6 8.8 - 10.4 mg/dL 06/03/2025 11:32 AM [facility] Comment: Reference ranges for this test were updated on 05/28/2024 to reflect our healthy population more accurately. Reference range changes are not retroactively applied to results, but previous results using the same methodology can be interpreted in the context of the new reference range. BUN 14 8 - 23 mg/dL 06/03/2025 11:32 AM [facility] CREATININE 0.74 0.70 - 1.20 mg/dL 06/03/2025 11:32 AM [facility] BUN/CREAT RATIO 19 10 - 20 11:32 AM [facility] eGFR >90 >90 mL/min/1. 73m2 06/03/2025 11:32 AM [facility] Comment:As of 2021, eG FR is calculated by the CKD-EPI creatinine equation without race adjustment. eGFR can be influenced by muscle mass, exercise, and diet. The reported eGFR is an estimation only and is only applicable if the renal function is stable. ALBUMIN 3.5(L) 4.0 - 4.9 g/dL 06/03/2025 11:32 AM [facility] PROTEIN,TOTAL 6.3 6.0 - 8.0 g/dL 06/03/2025 11:32 AM [facility] BILIRUBIN,TOTAL 0.4 0.0 - 1.2 mg/dL 06/03/2025 11:32 AM [facility] ALK PHOSPHATASE 261(H) 40 - 129 IU/L 06/03/2025 11:32 AM [facility] ALT (SGPT) 37 10 - 50 IU/L 06/03/2025 11:32 AM [facility] AST (SGOT) 23 10 - 50 IU/L 06/03/2025 11:32 AM [facility] Blood BLOOD SPECIMEN / Unknown Butterfly / Unknown 06/03/2025 7:52 AM LOOM FIXER APPRENTICE 06/03/2025 9:52 AM LOOM FIXER APPRENTICE us Carmenza Quiroz NP CHEMISTRY Final Resul t Performing Organization Address City/[facility]/ZIP Co de Phone Number [facility] [address] [place] [address] * (ABNORMAL) RED CELL MORPHOLOGY (05/27/2025 7:41 AM LOOM FIXER APPRENTICE) Only the most recent of7 resultswithin the time period is included. ELLIPTOCYTES Few 05/27/2025 11:28 AM LOOM FIXER APPRENTICE [facility] RBC COMMENT Present(A ) RBC morphology appears normal, RBC morphology within normal limits for newborns. 05/27/2025 11:28 AM LOOM FIXER APPRENTICE [facility] Blood BLOOD SPECIMEN / Unknown Butterfly / Unknown 05/27/2025 7:41 AM LOOM FIXER APPRENTICE 05/27/2025 9:36 AM LOOM FIXER APPRENTICE Carmenza Quiroz NP HEMATOLOGY Final Resul t Performing Organization Address [facility] Co de Phone Number [facility] [address] [place] [address] * PLATELET ESTIMATE (05/27/2025 7:41 AM LOOM FIXER APPRENTICE) Only the most recent of5 resultswithin the time period is included. Pathologist [facility] PLATELET ESTIMATE Adequate Adequate, No estimate 05/27/2025 11:28 AM [facility] Blood BLOOD SPECIMEN / Unknown Butterfly / Unknown 05/27/2025 7:41 AM LOOM FIXER APPRENTICE 05/27/2025 9:36 AM LOOM FIXER APPRENTICE Carmenza Quiroz NP HEMATOLOGY Final Resul t Performing Organization Address City/[facility]/ZIP Co de Phone Number [facility] [address] [place] [address] * (ABNORMAL) MANUAL DIFFERENTIAL (05/27/2025 7:41 AM LOOM FIXER APPRENTICE) Only the most recent of3 resultswithin the time period is included. % NEUTROPHILS 74.0 % 05/27/2025 11:28 AM [facility] % LYMPHOCYTES 18.0 % 05/27/2025 11:28 AM [facility] % MONOCYTES 7.0 % 05/27/2025 11:28 AM [facility] % EOSINOPHILS 1.0 % 05/27/2025 11:28 AM [facility] % BASOPHILS 0.0 % 05/27/2025 11:28 AM [facility] NEUTROPHILS ABSOLUTE 8.8(H) 1.7 - 7.0 thou/cu mm 05/27/2025 11:28 AM [facility] LYMPHOCYTES ABSOLUTE 2.1 0.9 - 2.9 thou/cu mm 05/27/2025 11:28 AM [facility] MONOCYTES ABSOLUTE 0.8 <0.9 thou/cu mm 05/27/2025 11:28 AM [facility] EOSINOPHILS ABSOLUTE 0.1 <0.5 thou/cu mm 05/27/2025 11:28 AM [facility] BASOPHILS ABSOLUTE 0.0 <0.3 thou/cu mm 05/27/2025 11:28 AM [facility] Blood BLOOD SPECIMEN / Unknown Butterfly / Unknown 05/27/2025 7:41 AM LOOM FIXER APPRENTICE 05/27/2025 9:36 AM LOOM FIXER APPRENTICE us Carmenza Quiroz STORE COORDINATOR HEMATOLOGY Final Resul t [facility] [address] [place], [place] [id number] * (ABNORMAL) BASIC METABOLIC PANEL (05/27/2025 7:41 AM [facility]) Only the most recent of11 resultswithin the time period is included. SODIUM 142 136 - 145 mmol/L 05/27/2025 10:22 AM [facility] POTASSIUM 3.9 3.5 - 5.1 mmol/L 05/27/2025 10:22 AM [facility] CHLORIDE 105 98 - 107 mmol/L 05/27/2025 10:22 AM [facility] CO2,TOTAL 24 22 - 29 mmol/L 05/27/2025 10:22 AM [facility] ANION GAP 13 5 - 18 05/27/2025 10:22 AM [facility] GLUCOSE 118(H) 70 - 99 mg/dL 05/27/2025 10:22 AM [facility] CALCIUM 9.4 8.8 - 10.4 mg/dL 05/27/2025 10:22 AM [facility] Comment: Reference ranges for this test were updated on 05/28/2024 to reflect our healthy population more accurately. Reference range changes are not retroactively applied to results, but previous results using the same methodology can be interpreted in the context of the new reference range. BUN 20 8 - 23 mg/dL 05/27/2025 10:22 AM [facility] CREATININE 0.72 0.70 - 1.20 mg/dL 05/27/2025 10:22 AM [facility] BUN/CREAT RATIO 28(H) 10 - 20 10:22 AM [facility] eGFR >90 >90 mL/min/1. 73m2 05/27/2025 10:22 AM [facility] Comment:As of 2021, eG FR is calculated by the CKD-EPI creatinine equation without race adjustment. eGFR can be influenced by muscle mass, exercise, and diet. The reported eGFR is an estimation only and is only applicable if the renal function is stable. Blood BLOOD SPECIMEN / Unknown Butterfly / Unknown 05/27/2025 7:41 AM LOOM FIXER APPRENTICE 05/27/2025 9:36 AM LOOM FIXER APPRENTICE us Carmenza Quiroz STORE COORDINATOR CHEMISTRY Final Resul t [facility] [address] [place], [place] [id number] * (ABNORMAL) HEPATIC FUNCTION PANEL (04/22/2025 7:45 AM CDT) Only the most recent of2 resultswithin the time period is included. ALBUMIN 2.9(L) 4.0 - 4.9 g/dL 04/22/2025 10:25 AM CDT [facility] PROTEIN,TOTAL 6.0 6.0 - 8.0 g/dL 04/22/2025 10:25 AM CDT [facility] BILIRUBIN,TOTAL 0.3 0.0 - 1.2 mg/dL 04/22/2025 10:25 AM CDT [facility] BILIRUBIN,DIRECT 0.1 0.0 - 0.2 mg/dL 04/22/2025 10:25 AM CDT [facility] BILIRUBIN,INDIRE CT 0.2 0.2 - 0.8 mg/dL 04/22/2025 10:25 AM CDT [facility] ALK PHOSPHATASE 226(H) 40 - 129 IU/L 04/22/2025 10:25 AM T [facility] ALT (SGPT) 30 10 - 50 IU/L 04/22/2025 10:25 AM CDT [facility] AST (SGOT) 25 10 - 50 IU/L 04/22/2025 10:25 AM CDT [facility] Blood BLOOD SPECIMEN / Unknown Butterfly / Unknown 04/22/2025 7:45 AM CDT 04/22/2025 8:45 AM CDT us Carmenza Quiroz NP CHEMISTRY Final Resul t [facility] [address] [place] [address] * (ABNORMAL) GLUCOSE METER (04/12/2025 12:18 PM CDT) Only the most recent of13 resultswithin the time period is included. [facility] Signature GLUCOSE METER 157(H) 65 - 100 mg/dL 04/12/2025 12:20 PM CDT [facility] Blood BLOOD SPECIMEN / Unknown 04/12/2025 12:18 PM CDT 04/12/2025 12:20 PM CDT us Twyla Snyder MD CHEMISTRY Final Result [facility] [address] [place] [address], * (ABNORMAL) CBC no diff AM (04/12/2025 7:25 AM CDT) Only the most recent of3 resultswithin the time period is included. WHITE BLOOD COUNT 9.1 4.5 - 11.0 thou/cu mm 04/12/2025 10:18 AM CDT [facility] RED BLOOD COUNT 3.33(L) 4.30 - 5.90 mil/cu mm 04/12/2025 10:18 AM CDT [facility] HEMOGLOBIN 8.3(L) 13.5 - 17.5 g/dL 04/12/2025 10:18 AM CDT [facility] HEMATOCRIT 28.5(L) 37.0 - 53.0 % 04/12/2025 10:18 AM CDT [facility] MCV 86 80 - 100 fL 04/12/2025 10:18 AM CDT [facility] MCH 24.9(L) 26.0 - 34.0 pg 04/12/2025 10:18 AM CDT [facility] MCHC 29.1(L) 32.0 - 36.0 g/dL 04/12/2025 10:18 AM T [facility] RDW 18.1(H) 11.5 - 15.5 % 04/12/2025 10:18 AM CDT [facility] PLATELET COUNT 212 140 - 440 thou/cu mm 04/12/2025 10:18 AM CDT [facility] MPV 9.0 6.5 - 11.0 fL 04/12/2025 10:18 AM CDT [facility] NRBC 0.2 % 04/12/2025 10:18 AM CDT [facility] ABS NRBC 0.0 thou /cu mm 04/12/2025 10:18 AM [facility] Blood BLOOD SPECIMEN / Unknown Butterfly / Unknown 04/12/2025 7:25 AM CDT 04/12/2025 7:47 AM CDT Twyla Snyder MD HEMATOLOGY Final Result Performing Organization Address City/[facility]/ZIP Co de Phone Number [facility] [address] [place] [address], [place] * (ABNORMAL) BLOOD GAS,VENOUS (04/12/2025 7:25 AM CDT) Only the most recent of2 resultswithin the time period is included. PH, VENOUS 7.37 7.32 - 7.43 04/12/2025 7:39 AM CDT [facility] PCO2, VENOUS 34(L) 41 - 51 mmHg 04/12/2025 7:39 AM CDT [facility] PO2, VENOUS 69(H) 35 - 40 mmHg 04/12/2025 7:39 AM CDT [facility] HCO3,VENOUS 20(L) 22 - 29 mmol/L 04/12/2025 7:39 AM CDT [facility] BASE EXCESS, VENOUS, POCT -4.8(L) -2.0 - 3.0 04/12/2025 7:39 AM CDT [facility] O2 SATURATION, VENOUS 96(H) 70 - 75 % 04/12/2025 7:39 AM CDT [facility] PATIENT TEMPERATURE 37.0 Degrees C 04/12/2025 7:39 AM CDT [facility] Blood BLOOD SPECIMEN / Unknown Butterfly / Unknown 04/12/2025 7:25 AM CDT 04/12/2025 7:34 AM CDT Twyla Snyder MD CHEMISTRY Final Result Performing Organization Address City/[facility]/ZIP Co de Phone Number [facility] [address] [place] [address], [place] * POTASSIUM (04/11/2025 8:37 PM CDT) Only the most recent of2 resultswithin the time period is included. Pathologist [facility] POTASSIUM 4.2 3.5 - 5.1 mmol/L 04/11/2025 9:05 PM CDT [facility] Blood BLOOD SPECIMEN / Unknown Venipuncture / Unknown 04/11/2025 8:37 PM CDT 04/11/2025 8:49 PM CDT Twyla Snyder MD CHEMISTRY Final Result Performing Organization Address [facility] Co de Phone Number [facility] [address] [place] [address], [place] * SODIUM (04/11/2025 1:15 PM CDT) Only the most recent of2 resultswithin the time period is included. Pathologist [facility] SODIUM 136 136 - 145 mmol/L 04/11/2025 6:22 PM CDT [facility] Blood BLOOD SPECIMEN / Unknown Butterfly / Unknown 04/11/2025 1:15 PM CDT 04/11/2025 1:23 PM CDT Twyla Snyder MD CHEMISTRY Final Result Performing Organization Address [facility] Phone Number [facility] [address] [place] [address], [place] * (ABNORMAL) CREATININE (04/11/2025 1:15 PM CDT) Only the most recent of2 resultswithin the time period is included. Pathologist [facility] eGFR 55(L) >90 mL/min/1.7 3m2 04/11/2025 6:22 PM CDT [facility] Comment:As of 2021, eG FR is calculated by the CKD-EPI creatinine equation without race adjustment. eGFR can be influenced by muscle mass, exercise, and diet. The reported eGFR is an estimation only and is only applicable if the renal function is stable. CREATININE 1.35(H) 0.70 - 1.20 mg/dL 04/11/2025 6:22 PM CDT [facility] Blood BLOOD SPECIMEN / Unknown Butterfly / Unknown 04/11/2025 1:15 PM CDT 04/11/2025 1:23 PM CDT us Twyla Snyder MD CHEMISTRY Final Result [facility]AL [facility] [address] [place] [address], [place] * IR PERCUTANEOUS TUBE CHANGE (04/11/2025 11:22 AM CDT) Anatomical Region Laterality Modality X-Ray Angiograph y Narrative 04/11/2025 11:31 AM CDT Procedure: 1. Percutaneous cholangiogram, existing access 2. Cholecystostomy tube exchange Indication: routine exchange Comparison: None Interventionalist: Daphney Avendano MD Fluoroscopy time: 1 minutes. Reference air kerma: 5 mGy. Estimated Blood Loss: <10 mL. Medications: midazolam 1 mg IV Contrast: Omnipaque 350, 10 mL Sedation: Minimal Sedation Conscious sedation: The one drug analgesia was supervised by myself and the patient's vital signs were actively monitored by an independent registered nurse. Complications: None immediate. Technique: The procedure, risks, and alternative therapies were discussed in detail, and written informed consent was obtained. A time out was performed to verify correct patient and procedure. One drug sedation was administered as above. The patient's pulse oximetry, EKG, and blood pressure were monitored by the interventional radiology nurse at all times. The patient was placed supine on the fluoroscopy table. The indwelling catheter and adjacent skin were prepped and draped in the usual sterile fashion. All elements of maximum sterile barrier technique were used. An initial choleangiogram was performed through the existing drainage catheter. Soft tissues adjacent to the exit site of the catheter were anesthetized with 1% lidocaine. The catheter was cut and cannulated with an Amplatz wire which was coiled in the gallbladder. The existing catheter was exchanged over this wire for a new 14 Albanian all purpose drain. The pig tail was coiled in the gallbladder and contrast injection confirmed correct placement. It was secured to the skin with 2-0 Ethilon suture and a Radha disc, covered with a sterile dressing, and connected to a drainage bag. Findings: Initial cholangiogram demonstrates pre-existing cholecystostomy tube in acceptable position. There is brisk passage of contrast through the cystic duct into the biliary tree. The catheter was uneventfully exchanged for a new 14 Albanian all purpose drain under fluoroscopic guidance. Completion cholangiogram demonstrated new catheter in appropriate position. Impression: 1. Successful fluoroscopically guided exchange of cholecystostomy tube. The cystic duct is patent. Capping trial could be considered. Twyla Snyder MD IR Final Result * (ABNORMAL) IMMUNOFIXATION ELP, URINE (04/10/2025 6:56 PM CDT) IFIX INTERP,URINE Immunofixation on urine shows no monoclonal protein detected and no free light chains detected. Interpreted and electronically signed by: Bettie Valdez MD 04/15/2025 10:28 AM CDT [facility] LAB[facility]- NTRLA LABORATORY PROTEIN QUANT,RAND URINE 21(H) 1 - 14 mg/dL 04/15/2025 10:28 AM CDT [facility]- [facility] Urine URINE SPECIMEN / Unknown Non-Blood / Unknown 04/10/2025 6:56 PM CDT 04/10/2025 7:03 PM CDT us Twyla Snyder MD URINE Final Result [facility]AL [facility] [address] [place] [address], [place] * SCAN CORRESP-LABORATORY RESULTS (04/10/2025 11:55 AM CDT) Only the most recent of2 resultswithin the time period is included. Narrative 04/10/2025 11:55 AM CDT Ordered by an unspecified provider. Other Clinical Staff OTHER Final Resul t * SCAN CORRESP-EKG RESULTS (04/10/2025 11:55 AM CDT) Narrative 04/10/2025 11:55 AM CDT Ordered by an unspecified provider. Other Clinical Staff OTHER Final Resul t * SCAN CORRESP-IMAGING (04/10/2025 11:55 AM CDT) Anatomical Region Laterality Modality Other Narrative 04/10/2025 11:55 AM CDT Ordered by an unspecified provider. us Other Clinical Staff OTHER Final Resul t * (ABNORMAL) PROTEIN ELP SERUM W REFLEX (04/09/2025 6:45 AM CDT) ELP,ALBUMIN 2.00(L) 3.31 - 5.31 g/dL 04/11/2025 4:29 PM CDT [facility] ELP,ALPHA 1 0.57(H) 0.19 - 0.42 g/dL 04/11/2025 4:29 PM CDT [facility] ELP,ALPHA 2 0.92 0.44 - 1.03 g/dL 04/11/2025 4:29 PM CDT [facility] ELP,GAMMA 0.48(L) 0.59 - 1.46 g/dL 04/11/2025 4:29 PM CDT [facility] ELP,BETA 0.83 0.52 - 1.05 g/dL 04/11/2025 4:29 PM CDT [facility] MONOCLONAL PEAK 1 0.04 <=0.00 g/dL 04/11/2025 4:29 PM CDT [facility] ELP INTERP,SERUM Trace monoclonal protein detected in gamma region, confirmed by immunofixation. Interpreted and electronically signed by: Bettie Valdez MD 04/11/2025 4:29 PM CDT [facility] PROTEIN,TOTAL 4.8(L) 6.0 - 8.0 g/dL 04/11/2025 4:29 PM CDT [facility] Blood BLOOD SPECIMEN / Unknown Extra Tube / Unknown 04/09/2025 6:45 AM CDT 04/09/2025 7:09 AM CDT us Twyla Snyder MD CHEMISTRY Final Result [facility] [address] [place] [id number], [place] * EXTRA TUBE GOLD/SST (04/09/2025 6:45 AM CDT) Blood BLOOD SPECIMEN / Unknown Extra Tube / Unknown 04/09/2025 6:45 AM CDT 04/09/2025 7:09 AM CDT Twyla Silva RN LABORATORY Final Result Performing Organization Address [facility] Co de Phone Number [facility] [address] [place] [id number], [place] * (ABNORMAL) IMMUNOFIXATION,SERUM (04/09/2025 6:45 AM CDT) IGG 422.26(L) 610.30 - 1,616.00 mg/dL 04/11/2025 4:29 PM CDT [facility] IGA 299.92 84.50 - 499.00 mg/dL 04/11/2025 4:29 PM CDT [facility] EN[facility]AL [facility] IGM 42.52 35.00 - 242.00 mg/dL 04/11/2025 4:29 PM CDT [facility] IFIX INTERP,SERUM Immunofixation on serum shows faint complete monoclonal protein IgG kappa with no free light chains detected. The finding of a monoclonal protein may be associated with a lymphoproliferative or plasma cell disorder. Consider serum free light chains, urine protein electrophoresis and urine immunofixation to further evaluate, if not already performed. Interpreted and electronically signed by: Bettie Valdez MD 04/11/2025 4:29 PM CDT [facility] ENTRLA [facility] Blood BLOOD SPECIMEN / Unknown Extra Tube / Unknown 04/09/2025 6:45 AM CDT 04/09/2025 7:09 AM CDT Twyla Snyder MD CHEMISTRY Final Result Performing Organization Address [facility] Co de Phone Number [facility] [address] [place] [phone], [place] * (ABNORMAL) IRON PLUS IRON BINDING CAP (04/09/2025 6:45 AM CDT) IRON 20(L) 61 - 157 ug/dL 04/09/2025 1:01 PM CDT [facility] TRA [facility] UIBC (UNSATURATED) 129 112 - 347 ug/dL 04/09/2025 1:01 PM CDT [facility] TRAL [facility] IRON BINDING CAPACITY 149(L) 250 - 400 ug/dL 04/09/2025 1:01 PM CDT [facility] IRON,% SATURATION 13(L) 14 - 50 % 04/09/2025 1:01 PM CDT [facility] Blood BLOOD SPECIMEN / Unknown Venipuncture / Unknown 04/09/2025 6:45 AM CDT 04/09/2025 7:06 AM CDT Twyla Snyder MD CHEMISTRY Final Result [facility] [address] [place] [phone], [place] * MAGNESIUM (04/09/2025 6:45 AM CDT) MAGNESIUM 1.7 1.6 - 2.4 mg/dL 04/09/2025 7:34 AM CDT [facility] Blood BLOOD SPECIMEN / Unknown Venipuncture / Unknown 04/09/2025 6:45 AM CDT 04/09/2025 7:06 AM CDT Elder Roach MD CHEMISTRY Final Res ult [facility] [address] [place] [phone], [place] * (ABNORMAL) FERRITIN (04/09/2025 6:45 AM CDT) FERRITIN 658.0(H) 30.0 - 400.0 ng/mL 04/09/2025 1:01 PM CDT [facility] Blood BLOOD SPECIMEN / Unknown Venipuncture / Unknown 04/09/2025 6:45 AM CDT 04/09/2025 7:06 AM CDT us Twyla Snyder MD CHEMISTRY Final Result [facility] [address] [place] [address], [place] * US RENAL AND BLADDER COMPLETE PORTABLE (04/09/2025 3:02 AM CDT) Anatomical Region Laterality Modality Abdomen, KIDNEYS Ultrasound 04/09/2025 3:31 AM CDT Impressions 04/09/2025 3:31 AM CDT 1. Minimal bilateral renal pelviectasis without overt hydronephrosis. 2. Simple appearing right upper pole renal cyst measuring 4.3 cm. 3. The hyperdense left renal lesion seen on prior CT is not definitely visualized sonographically. 4. Decompressed urinary bladder not well seen. Dictated by Bettie Walker MD @ 04/09/2025 3:31:27 AM (Electronically Signed) Narrative 04/09/2025 3:31 AM CDT For Patients: As a result of the Century Cures Act, medical imaging exams and procedure reports are released immediately into your electronic medical record. You may view this report before your referring provider. If you have questions, please contact your health care provider. INDICATION: Renal failure. COMPARISON: CT chest, abdomen, pelvis 04/02/2025. TECHNIQUE: Grayscale and color Doppler images were acquired of the kidneys and urinary bladder. FINDINGS: Right kidney: Measures 13.1 cm in length. Normal cortical thickness and echogenicity. Minimal prominence of the renal pelvis without calyceal dilation. There is a 4.3 cm anechoic cyst in the upper pole. No calculus or solid mass. Left kidney: Measures 13.3 cm in length. Normal cortical thickness and echogenicity. Minimal prominence of the renal pelvis without calyceal dilation. No calculus or solid mass. Bladder: The urinary bladder is decompressed and not well seen due to Eason catheter placement. Procedure Note Bettie Walker MD - 04/09/2025 For Patients: As a result of the 21st Century Cures Act, medical imagingexams and procedure reports are released immediately into your electronicmedical record. You may view this report before your referring provider.If you have questions, please contact your health care provider. INDICATION: Renal failure. COMPARISON: CT chest, abdomen, pelvis 04/02/2025. TECHNIQUE: Grayscale and color Doppler images were acquired of the kidneys andurinary bladder. FINDINGS: Right kidney: Measures 13.1 cm in length. Normal cortical thickness andechogenicity. Minimal prominence of the renal pelvis without calycealdilation. There is a 4.3 cm anechoic cyst in the upper pole. No calculusor solid mass. Left kidney: Measures 13.3 cm in length. Normal cortical thickness andechogenicity. Minimal prominence of the renal pelvis without calycealdilation. No calculus or solid mass. Bladder: The urinary bladder is decompressed and not well seen due toFoley catheter placement. IMPRESSION: 1. Minimal bilateral renal pelviectasis without overt hydronephrosis. 2. Simple appearing right upper pole renal cyst measuring 4.3 cm. 3. The hyperdense left renal lesion seen on prior CT is not definitelyvisualized sonographically. 4. Decompressed urinary bladder not well seen. Dictated by Bettie Walker MD @ 04/09/2025 3:31:27 AM (Electronically Signed) us Elder Roach MD US Final Res ult * FRACT EXCR OF SODIUM, URINE (04/09/2025 2:55 AM CDT) SODIUM,RAW URINE 48 mmol/L 04/09/2025 3:33 AM CDT [facility] SODIUM 137 mmol/L 04/09/2025 3:33 AM CDT [facility] CREATININE RAW URINE 87 mg/dL 04/09/2025 3:33 AM CDT [facility] CREATININE 2.33 mg/dL 04/09/2025 3:33 AM CDT [facility] FRACT EX OF SODIUM 0.9 % 04/09/2025 3:33 AM CDT [facility] Urine URINE SPECIMEN / Unknown Non-Blood / Unknown 04/09/2025 2:55 AM CDT 04/09/2025 3:11 AM CDT Narrative [facility] - 04/09/2025 3:33 AM CDT Suggests Pre-Renal Azotemia Elder oRach MD URINE Final Res ult [facility] [address] [place] [phone], [place] * (ABNORMAL) URINALYSIS MICROSCOPIC (04/09/2025 2:55 AM CDT) Pathologist [facility] RBC 3-5(A) 0-2, None Seen /HPF 04/09/2025 3:20 AM CDT [facility] WBC 51-100(A) 0-2, 3-5, None Seen /HPF 04/09/2025 3:20 AM CDT [facility] BACTERIA None Seen None Seen, Rare, Few Bacteria/ HPF 04/09/2025 3:20 AM CDT [facility] EPITHELIAL CELLS None Seen None Seen, Few Epi/HPF 04/09/2025 3:20 AM CDT [facility] HYALINE CASTS 3-5 0-2, 3-5 /LPF 04/09/2025 3:20 AM CDT [facility] Urine URINE SPECIMEN / Unknown Non-Blood / Unknown 04/09/2025 2:55 AM CDT 04/09/2025 3:11 AM CDT Elder Roach MD URINE Final Res ult [facility] [address] [place] [phone], [place] * (ABNORMAL) PROTEIN/CREAT RATIO,URINE (04/09/2025 2:55 AM CDT) PROTEIN QUANT,RAND URINE 23(H) 1 - 14 mg/dL 04/09/2025 3:33 AM CDT [facility] CREAT,RANDOM URINE 87.8 39.0 - 259.0 mg/dL 04/09/2025 3:33 AM CDT [facility] PROT/CREAT RATIO,UR 0.3(H) <0.2 04/09/2025 3:33 AM CDT [facility] Urine URINE SPECIMEN / Unknown Non-Blood / Unknown 04/09/2025 2:55 AM CDT 04/09/2025 3:11 AM CDT Elder Roach MD URINE Final Res ult [facility] [address] [place] [address], [place] * (ABNORMAL) UA W/ SEDIMENT EXAM REFLEXED PER CRITERIA (04/09/2025 2:55 AM CDT) COLOR Yellow Yellow Color 04/09/2025 3:20 AM CDT [facility] CLARITY Clear Clear Clarity 04/09/2025 3:20 AM CDT [facility] SPECIFIC GRAVITY,URINE 1.010 1.010, 1.015, 1.020, 1.025 04/09/2025 3:20 AM CDT [facility] PH,URINE 6.0 6.0, 7.0, 8.0, 5.5, 6.5, 7.5, 8.5 04/09/2025 3:20 AM CDT [facility] UROBILINOGEN, QUALITATIVE Normal Normal EU/dl 04/09/2025 3:20 AM CDT [facility] PROTEIN, URINE Trace(A) Negative mg/dL 04/09/2025 3:20 AM CDT [facility] GLUCOSE, URINE Negative Negative mg/dL 04/09/2025 3:20 AM CDT [facility] KETONES,URINE Negative Negative mg/dL 04/09/2025 3:20 AM CDT [facility] TRAL LAB[facility]ORY BILIRUBIN,URI NE Negative Negative 04/09/2025 3:20 AM CDT [facility] OCCULT BLOOD,URINE Small(A) Negative 04/09/2025 3:20 AM CDT [facility] NITRITE Negative Negative 04/09/2025 3:20 AM CDT [facility] LEUKOCYTE ESTERASE Large(A) Negative 04/09/2025 3:20 AM CDT [facility] Urine URINE SPECIMEN / Unknown Non-Blood / Unknown 04/09/2025 2:55 AM CDT 04/09/2025 3:11 AM CDT us Elder Roach MD URINE Final Res ult [facility] [address] [place] [address], [place] * (ABNORMAL) FRACT EXCR OF SODIUM, SERUM (04/09/2025 2:04 AM CDT) SODIUM 137 136 - 145 mmol/L 04/09/2025 3:33 AM CDT [facility] CREATININE 2.33(H) 0.70 - 1.20 mg/dL 04/09/2025 3:33 AM CDT [facility] eGFR 28(L) >90 mL/min/1.7 3m2 04/09/2025 3:33 AM CDT [facility] Comment: As of 2021, eGFR is calculated by the CKD-EPI creatinine equation without race adjustment. eGFR can be influenced by muscle mass, exercise, and diet. The reported eGFR is an estimation only and is only applicable if the renal function is stable. As of 10/05/2021, eGFR is calculated by the CKD-EPI creatinine equation without race adjustment. eGFR can be influenced by muscle mass, exercise, and diet. The reported eGFR is an estimation only and is only applicable if the renal function is stable. Blood BLOOD SPECIMEN / Unknown Venipuncture / Unknown 04/09/2025 2:04 AM CDT 04/09/2025 2:10 AM CDT Elder Roach MD CHEMISTRY Final Res ult Performing Organization Address City/[facility]/ZIP Co de Phone Number [facility] [address] [place] [phone], * LACTATE VENOUS (04/09/2025 2:04 AM CDT) LACTATE,VENOUS 1.0 0.5 - 2.0 mmol/L 04/09/2025 2:38 AM CDT [facility] Blood BLOOD SPECIMEN / Unknown Venipuncture / Unknown 04/09/2025 2:04 AM CDT 04/09/2025 2:10 AM CDT Eledr Roach MD CHEMISTRY Final Res ult Performing Organization Address [facility] Co de Phone Number [facility] [address] [id number], [place] * PROCALCITONIN (04/09/2025 2:04 AM CDT) PROCALCITONIN 0.40 ng/ml 04/09/2025 2:42 AM CDT [facility] Blood BLOOD SPECIMEN / Unknown Venipuncture / Unknown 04/09/2025 2:04 AM CDT 04/09/2025 2:10 AM CDT Narrative [facility] - 04/09/2025 2:42 AM CDT Procalcitonin for initial assessment of Lower Respiratory Tract Infection: Results Interpretation <0.10 ng/mL Antibiotic therapy strongly discoraged. Indicates absent of bacterial infection. * 0.10 - 0.25 ng/mL Antibiotic therapy discouraged. Bacterial infection unlikely. * 0.26 - 0.50 ng/mL Antibiotic therapy encouraged. Bacterial infection possible. >0.50 ng/mL Antibiotic therapy strongly encouraged. Suggestive of presence of bacterial infection. *Antibiotic therapy should be considered regardless of PCT result if the patient is clinically unstable, is at high risk for adverse outcome, has strong evidence of bacterial pathogen, or the clinical context indicates antibiotic therapy is warranted. If antibiotics are withheld, reassess if symptoms persist/worsen and/or repeat PCT measurement within 6-24 hours. In order to assess treatment success and to support a decision to discontinue antibiotic therapy, follow up samples should be tested once every 1-2 days, based upon physician discretion taking into account patient's evolution and progress. Procalcitonin for initial assessment of severe sepsis risk: Results Interpretation <0.5 ng/ml A PCT level below 0.5 ng/ml on the first day of ICU admission is associated with a low risk for progression to severe sepsis and/or septic shock. > 2.0 ng/mL A PCT level above 2.0 ng/mL on the first day of ICU admission is associated with a high risk for progression to severe sepsis and/or septic shock. Note: Concentrations < 0.5 ng/mL do not exclude an infection, on account of localized infections (without systemic signs) which can be associated with such low concentrations, or a systemic infection in its initial stages(< 6 hours). Furthermore, increased procalcitonin can occur without infection. PCT concentrations between 0.5 and 2.0 ng/mL should be interpreted taking into account the patient's history. It is recommended to retest PCT within 6-24 hours if any concentrations < 2 ng/mL are obtained. us Elder Roach MD SEND OUTS Final Res ult Performing Organization Address [facility] de Phone Number [facility]AL LABOR[facility]ORY [address] [place] [address], * (ABNORMAL) C-REACTIVE PROTEIN (03/25/2025 7:13 AM CDT) Pathologist [facility] C-REACTIVE PROTEIN 9.6(H) <0.5 mg/dL 03/25/2025 8:47 AM CDT [facility] Blood BLOOD SPECIMEN / Unknown Butterfly / Unknown 03/25/2025 7:13 AM CDT 03/25/2025 8:21 AM CDT us Carmenza Quiroz NP CHEMISTRY Final Resul t Performing Organization Address [facility] Co de Phone Number [facility] [address] [place] [address] * LAB TRACKING EVENT (03/12/2025 1:28 PM CDT) Other (Other) Client Collect / Unknown 03/12/2025 1:28 PM CDT 03/13/2025 6:12 AM CDT us Doctor Unknown LAB BILL ONLY Final Result [employer] [facility] [address] [place] [address], * PATH TISSUE EXAM (03/12/2025 1:28 PM CDT) Case Report Pathology Report Case: [id number] Authorizing Provider: Unknown, Doctor Collected: 03/12/2025 1328 Ordering Location: [facility] Received: 03/13/2025 1607 Pathologist: Clay Carcamo MD Specimen: Right Buttock, buttock wound, stage 4 ulcer 03/17/2025 11:16 AM CDT [facility] Final Diagnosis A) BONE, RIGHT GLUTEUS, BIOPSY: 1. Soft tissue and periosteum with mixed inflammation 2. Scant fragments of bone with mixed inflammation 3. See comment 03/17/2025 11:16 AM CDT [facility] at 1116 CDT Comment Minimal bone is available for assessment, which appears to show involvement by acute and chronic inflammation, although it is unclear if this represents osteomyelitis, or an embedding artifact. Correlation with imaging and culture data is recommended. 03/17/2025 11:16 AM CDT [facility] Clinical Information Per requisition: Assess for osteomyelitis, positive on MRI 03/17/2025 11:16 AM CDT [facility] Gross Description A) Received in formalin, labeled with the patient's name and bone biopsy R gluteus, is a 2.0 x 1.5 x 0.6 cm aggregate of softened sandoval-brown bone with minimal attached soft tissue. The specimen is entirely submitted following decalcification in 1 cassette. JKG 03/13/2025 03/17/2025 11:16 AM CDT [facility] Microscopic Description The final diagnosis is based on microscopic examination of appropriate sections of all specimens. 03/17/2025 11:16 AM CDT [facility] Additional Information Interpreted at [facility] Central Laboratory - [address], [place] [address] 03/17/2025 11:16 AM CDT [facility] Other (Right Buttock) 03/12/2025 1:28 PM CDT 03/13/2025 4:07 PM CDT us Doctor Unknown PATHOLOGY/CYTOLOGY Final Result [facility] [address] [place] [address], from Last 3 Months Additional Health Concerns Infection Onset Date Last Indicated MDRO Clearance Comment:Infection Control Note: Hx of ESBL, surveillance criteria met, no need for further testing or isolation precautions. Do not delete or resolve the Infection Flag. 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 Nares surveillance cultures needed to clear patient if <12 months since positive culture. If >12 months since positive culture, precautions can be discontinued if patient has no MRSA risk factors. 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 care, receiving hemodialysis, has chronic open wounds/skin damage, has long-term percutaneous indwelling medical devices Exclusions for nares collection (if <12 months since positive culture) include all of the previous exclusions plus patients on antibiotics 7 days prior to collection 04/09/2025 04/09/2025 Insurance [employer] [facility] [place] [facility] Advance Directives Documents on File Type Date Recorded 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 01/26/2023 * DNR (Latest Code Status on File) Date Activated Date Inactivated Comments 04/11/2025 1:46 PM 04/12/2025 3:08 PM Question Answer Comments Code Status Discussion: Reviewed Preferences * Full Code Date Activated Date Inactivated Comments 04/09/2025 1:43 AM 04/11/2025 1:46 PM Question Answer Comments Code Status Discussion: Reviewed Preferences * Full Code Date Activated Date Inactivated Comments 02/06/2025 3:46 AM 02/07/2025 7:38 PM Question Answer Comments Code Status Discussion: Reviewed Preferences * Full Code Date Activated Date Inactivated Comments 02/06/2025 12:37 AM 02/06/2025 3:46 AM Question Answer Comments Code Status Discussion: Unable to Assess Preferences, Provider to review later 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
--- OUTSIDE RECORDS SUMMARY | 2025-06-05 00:16 | XMS_ITS | Encounter Summary ---
Author Organization [facility] Address [address] [place] [address] Care Team Providers Care Material Stockkeeper Yard Name Role Phone Jeff Reyes M.D. Primary Care Provider [phone] Encounter Details Date Type Department Care Team (Late st Contact Info) Description 06/04/2025 Clinical Communication Department of Radiology in [place], [place] [address] [place] [phone] Anuel Nunn M.D. [address] [place] [address] [phone] Social History Tobacco Use Types Packs/Day Years [...] living? Patient unable to answer 02/27/2025 [facility] Utilities Answer Date Recorded [...] Sex Assigned at Male 06/26/2018 4:20 PM DISTRIBUTION LINEMAN Legal Sex Male 3:33 AM DISTRIBUTION LINEMAN Gender Identity Not on file Sexual Orientation Not on file documented as of this encounter Miscellaneous Notes * Telephone Encounter - Mary Ortega RAmparoN. - 06/04/2025 2:55 PM DISTRIBUTION LINEMAN Reviewing chart, tube exchange scheduled 06/05/25. RIBUTION LINEMAN * Telephone Encounter - Olinda Byers M.S.N., R.N. - 06/04/2025 10:51 AM DISTRIBUTION LINEMAN caregiver Bekah nurse water project manager called in with concerns of patients jazmín tube suture coming out and the tube coming out of the body a little ways Pain: None reported. Signs and symptoms of infection: None reported Output description and amount:Still had 50 ml of output in the drainage bag, but fluid is now leaking around the site. Recommendations given: Tape down the tube and continue flushing if there is no output. Await a callback to schedule tube exchange earlier if needed. Will a picture of the site be submitted to the portal for review? no Is a provider follow-up call needed? yes Nurse bekah reports Ren's next tube exchange is not scheduled until 07/07. She is wondering if andreald come in sooner, and reports they can get him here tomorrow if needed. Her cell phone number is [phone]. She said a message can be left with the date and time and she will align family to transport. RIBUTION LINEMAN documented in this encounter Plan of Treatment Upcoming Encounters Date Type Department Care Team (Late st Contact Info) Description 06/05/2025 8:00 AM DISTRIBUTION LINEMAN Hospital Encounter Department of Radiology in [place], [place] [address] [place] [phone] Anuel Nunn M.D. [facility] [place] [phone] Rosenda Pedroza APRN, C.NAndre, M.S.N. [facility] [place] [phone] 07/14/2025 11:15 AM DISTRIBUTION LINEMAN Appointment Department of Radiology in [place], [place] [address] [place] [phone] Pablo Vo M.D. [address] [place] [address] [phone] 07/22/2025 4:20 PM DISTRIBUTION LINEMAN Office Visit Department of Oncology in [place], [place] [address] [place] [phone] Pablo Vo M.D. [address] [facility] [place] [phone] Scheduled Procedures Name Priority Associated Diagnoses Date/Ti me ROBOTIC-ASSISTED MULTIPORT CHOLECYSTECTOMY Cholecystitis Chronic documented as of this encounter Visit Diagnoses Not on filedocumented in this encounter Additional Health Concerns Assessment Noted Time PHQ-9 Depression Total Score: 10 018 11:00 AM CDT documented as of this encounter Care Teams Material Stockkeeper Yard Relationship Specialty Start Date End Date Jeff Reyes M.D. [address] [place] [phone] PCP - General 03/14/24 documented as of this encounter
--- OUTSIDE RECORDS SUMMARY | 2025-06-05 00:16 | XMS_ITS | Encounter Summary ---
Author Organization [facility] Address [address] [place] [address] Care Team Providers Care Sleeve Setter Name Role Phone Jeff Reyes M.D. Primary Care Provider [phone] Reason for Referral * Outpatient (Routine) - Authorized Specialty Diagnoses / Procedures Referred By Contac t Referred To Contact Jeff Reyes M.D. [address] [place] [address] Phone: tel: fax: [facility] Referral ID Status Reason Start Date Expiration Date V isits Requested Visits Authorized [id number] Authorized 05/27/2025 11/26/2026 1 1 Scheduling Instructions Nurse AWV Do not schedule prior to due date to ensure insurance coverage Visit: Medicare Annual Wellness due on 02/07/2025. OR PAINTER Encounter Details Date Type Department Care Team (Late st Contact Info) Description 05/27/2025 Orders Only [facility] Jeff Reyes M.D. [address] [place] [address] Social History Tobacco Use Types [...] living? Patient unable to answer 02/27/2025 [facility] Utilities Answer Date Recorded In the past 12 months has [facility] [employer], gas, oil, or water [employer] threatened to shut off services in your [...] Sex Assigned at Male 06/26/2018 4:20 PM MIRROR PAINTER Legal Sex Male 3:33 AM MIRROR PAINTER Gender Identity Not on file Sexual Orientation Not on file documented as of this encounter Plan of Treatment Upcoming Encounters Date Type Department Care Team (Late st Contact Info) Description 06/05/2025 8:00 AM MIRROR PAINTER Hospital Encounter Department of Radiology in [place], [place] [address] [place] [phone] Anuel Nunn M.D. [address] [place] [phone] Rosenda Pedroza APRN, C.N.P., M.S.N. [address] [place] [phone] 07/14/2025 11:15 AM MIRROR PAINTER Appointment Department of Radiology in [place], [place] [address] [place] [phone] Pablo Vo M.D. [address] [place] [phone] 07/22/2025 4:20 PM MIRROR PAINTER Office Visit Department of Oncology in [place], [place] [address] [phone] Pablo Vo M.D. [address] [place] [phone] Scheduled Procedures Name Priority Associated Diagnoses Date/Ti nd ROBOTIC-ASSISTED MULTIPORT CHOLECYSTECTOMY Cholecystitis Chronic Scheduled Referrals Name Type Priority Associated Diagnoses Orde r Schedule Primary Care nurse visit (clinic) - [facility] Region; Medicare Annual Wellness Outpatient Referral Routine Expected: 06/24/2025, Expires: 11/13/2025 documented as of this encounter Visit Diagnoses Not on filedocumented in this encounter Additional Health Concerns Assessment Noted Time PHQ-9 Depression Total Score: 10 05/26/ 018 11:00 AM CDT documented as of this encounter Care Teams Sleeve Setter Relationship Specialty Start Date End Date Jeff Reyes M.D. [address] [place] [phone] PCP - General 03/14/24 documented as of this encounter
--- OUTSIDE RECORDS SUMMARY | 2025-06-05 00:17 | XMS_ITS | Encounter Summary ---
Author Organization [facility] Address [address] [place] [address] Care Team Providers Care Forestry Tree Pruner Name Role Phone Jeff Reyes M.D. Primary Care Provider [phone] Reason for Visit * Reason Onset Date Comments Pre-visit Intake 06/03/2025 Encounter Details Date Type Department Care Team (Latest Contact Info) Description 06/03/2025 Clinical Communication Department of General Surgery in [place], [place] [address] [place] [address] Roland Benson D.O. [address] [place] [phone] Pre-visit Intake Social History Tobacco Use Types Packs/Day Years Used Date Smoking Tobacco: Former Cigarettes 0 Q uit: 1978 Passive Smoke Exposure: Never Alcohol Use Standard [...] to answer 02/27/[address] [facility] Utilities Answer Date Recorded In the past 12 months has [employer], gas, oil, or water [employer] threatened to shut off services in your [...] Assigned at Male 06/26/2018 4:20 PM DIRECTOR CASE Legal Sex Male 3:33 AM DIRECTOR CASE Gender Identity Not on file Sexual Orientation Not on file documented as of this encounter Miscellaneous Notes * Telephone Encounter - Dena Salinas R.N., [facility] - 06/03/2025 9:37 AM DIRECTOR CASE Bekah from alf calls today for update on surgery date. Advised OR schedule for Jul is not released and we will contact patient when the OR date are available. She is wondering if patient needs to keep IR tube exchange appointment, yes patient still needs to have routine tube exchanges until the gallbladder can safely be surgically removed in Jul. She is wondering if he needs to keep his Onc and CT apt, yes patient would also need to keep those appointments in relation to his hematologywork up. She is wondering if patient can have his sleep study completed inpatient because he is spending the night in our hospital. Their hospital is not equipped to handle his total cares. Advised that we would not be able to complete an outpatient study not related to his inpatient stay. The PCP can refer patient to the sleep medicine department for study at [facility] if they want to pursue that study within out system. Bekah would like a call at her number [phone] when surgery date is available. CTOR CASE documented in this encounter Plan of Treatment Upcoming Encounters Date Type Department Care Team (Late st Contact Info) Description 06/05/2025 8:00 AM DIRECTOR CASE Hospital Encounter Department of Radiology in [place] [address] [place] [phone] Anuel Nunn M.D. [address] [place] [phone] Rosenda Pedroza, EUSEBIO, C.N.P., M.S.N. [address] [place] [phone] 07/14/2025 11:15 AM DIRECTOR CASE Appointment Department of Radiology in [place], [place] [address] [phone] Pablo Vo M.D. [address] [place] [phone] 07/22/2025 4:20 PM DIRECTOR CASE Office Visit Department of Oncology in [place], [place] [address] [phone] Pablo Vo M.D. [address] [place] [phone] Scheduled Procedures Name Priority Associated Diagnoses Date/Ti me ROBOTIC-ASSISTED MULTIPORT CHOLECYSTECTOMY Cholecystitis Chronic documented as of this encounter Visit Diagnoses Not on filedocumented in this encounter Additional Health Concerns Assessment Noted Time PHQ-9 Depression Total Score: 10 018 11:00 AM CDT documented as of this encounter Care Teams Forestry Tree Pruner Relationship Specialty Start Date End Date Jeff Reyes M.D. [address] [place] [phone] PCP - General 03/14/24 documented as of this encounter
--- OUTSIDE RECORDS SUMMARY | 2025-06-05 00:17 | XMS_ITS | Clinical Summary ---
Author Organization [facility] Address [address] [place] [address] Care Team Providers Care Occupational Therapist'S Assistant Name Role Phone Jeff Reyes M.D. Primary Care Provider [phone] Source Comments Patient records contain information from all sites at [facility]. For routine questions regarding patient records, call [phone] during business hours, M-F 8:00 AM - 5:00 PM Central Time. Record requests for emergency care only can be directed to [phone] at any time.[facility] Allergies Active Allergy Reactions Criticality Noted Date Comments Haemophilus Influenzae Other (see comments) High Vancomycin Vancomycin Infusion Reaction,Other (see comments) Medium 05/26/2018 Red Man Syndrome Red Man Syndrome Red Man Syndrome Medications * This document [...] Do not crush or chew. 90 tablet 04/23/202 3 Active pantoprazole (PROTONIX) 40 mg EC tablet Take 1 tablet (40 mg total) by mouth 2 (two) times a day before breakfast and dinner. 180 tablet 3 3 Active baclofen (LIORESAL) 10 mg tabletIndication s:Multiple Sclerosis, Unspecified (HCC) Take 1 tablet (10 mg total) by mouth 2 (two) times a day. 60 tablet 3 Active lisinopriL (PRINIVIL,ZESTRI L) 40 mg tabletIndication s:Hypertension Essential Primary Take 1 tablet (40 mg total) by mouth daily. 90 tablet 3 Active Additional Information Patient not taking.Reported on 05/28/2025 calcium carbonate (TUMS) 500 mg (200 mg [...] times a day with meals. 5 Active Additional Information Patient not taking.Reported on 05/28/2025 acetaminophen (TylenoL) 500 mg tablet Take 2 tablets (1,000 mg total) by mouth 3 (three) times a day. 5 Active diclofenac sodium (Voltaren) 1 % gelIndications:M ultiple Sclerosis, Unspecified (HCC) Apply 2 g topically 2 (two) [...] 10 mL via irrigation every day 5 Active metFORMIN XR (Glucophage-XR) 500 mg 24 [...] Acute Pain Exception. 12 tablet 5 Active predniSONE (Deltasone) 20 mg tablet 5 Active sertraline (Zoloft) 25 mg tablet Take 25 mg by mouth daily. 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 Assessment & Plan (07/04/2018 2:56 PM STEAM TRAP WORKER): Continue I&O catheterization as needed Multiple Sclerosis, Unspecified 06/03/2003 Assessment & Plan (07/04/2018 3:32 PM STEAM TRAP WORKER): -Continue to follow with Neurology for further recommendations Resolved Problems Problem Noted Date Diagnosed Date Resolved Date Sprain Ankle Initial Right 11/08/2022 0 11/09/2022 Obesity Unspecified 03/21/2019 11/10/19 23 Urinary Tract Infection Site Not Specified 07/04/2018 11/09/2022 Overview (07/04/2018): Completed ciprofloxacin 500 mg b.i.d. for an antibiotic course of 14 days (last dose on 06/08/2018) Assessment & Plan (07/04/2018 3:31 PM STEAM TRAP WORKER): -Patient denies any urinary symptoms today on exam. -Continue care cranberry 450 mg daily Failure Renal Acute (Acute Kidney Injury) 05/27/2018 10/19/2022 Non-ST Elevation Myocardial Infarction 05/26/2018 10/23/2019 Assessment & Plan (07/04/2018 10:14 AM STEAM TRAP WORKER): 1. Continue aspirin 81 mg daily 2. [...] Encounters Date Type Department Care Team Description 06/05/2025 8:00 AM STEAM TRAP WORKER Hospital Encounter Department of Radiology in [address] [address] Anuel Nunn M.D. Rosenda Pedrzoa, CAMOUFLAGE ASSEMBLER, C.N.P., M.S.N. 06/04/2025 Clinical Communication Department of Radiology in [address] [phone] Anuel Nunn M.D. 06/03/2025 Clinical Communication Department of General Surgery in [address] [phone] Roland Benson D.O. Pre-visit Intake 05/28/2025 11:30 AM STEAM TRAP WORKER Nurse Only Department of General Surgery in [place], [place] [address] [place] [address] Dena Salinas R.N., CBCN Patient Education (Lap jazmín) 05/28/2025 11:30 AM STEAM TRAP WORKER Comprehensive Visit Department of General Surgery in [place], [place] [address] [place] [address] Roland Benson D.OAmparo Cholecystitis Chronic (Primary Dx) 05/27/2025 Orders Only [facility] Jeff Sullivan M.D. 03/14/2025 Clinical Communication Department of General Surgery in [place], [place] [address] [place] [address] Roland Benson D.OAmparo Communication (Regarding appointment in April) 03/13/2025 2:40 PM CDT Telemedicine Department of Oncology in [place], [place] [address] [phone] Pablo Vo M.D. 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 Other (Call Back) from Last 3 Months Immunizations Immunization Administration [...] disease Father father Glaucoma Father father Hyperlipidemia (high cholesterol) Father father Hypertension Father father Sleep apnea Father father Deep vein thrombosis Neg Hx Miscarriages (2 or more)/ stillbirth Neg Hx Pulmonary embolism Neg Hx Relation [...] th e electric, gas, oil, or water [employer] threatened to shut off services in your [...] Sex Assigned at Male 06/26/2018 4:20 PM STEAM TRAP WORKER Legal Sex Male 3:33 AM STEAM TRAP WORKER Gender Identity Not on file Sexual Orientation Not on file Last Filed Vital Signs Vital Sign Reading Time Taken Comments Blood Pressure 165/74 05/28/2025 11:30 AM STEAM TRAP WORKER Pulse 54 05/28/2025 11:30 AM STEAM TRAP WORKER Temperature 36.1 C (96.9 F) 05/28/2025 11:22 AM STEAM TRAP WORKER Respiratory Rate 16 02/27/2025 5:32 AM CDT Oxygen Saturation 96% 02/27/2025 5:3 2 AM CDT Inhaled Oxygen Concentration - - Weight 104 kg (229 lb) 05/28/2025 11:22 AM STEAM TRAP WORKER at facility this morning per patient Height 182.9 cm (6' 0.01) 05/28/2025 1 1:22 AM STEAM TRAP WORKER Body Mass Index 31.05 05/28/2025 11:22 AM STEAM TRAP WORKER Plan of Treatment Upcoming Encounters Date Type Department Care Team (Late st Contact Info) Description 06/05/2025 8:00 AM STEAM TRAP WORKER Hospital Encounter Department of Radiology in [place], [place] [address] [place] [address] Anuel Nunn M.D. [address] [place] [address] Rosenda Pedroza, EUSEBIO, C.N.P., M.S.N. [address] [place] [address] 07/14/2025 11:15 AM STEAM TRAP WORKER Appointment Department of Radiology in [place], [place] [address] [place] [address] Pablo Vo M.D. [address] [place] [address] 07/22/2025 4:20 PM STEAM TRAP WORKER Office Visit Department of Oncology in [place], [place] [address] [place] [phone] Pablo Vo M.D. [address] [place] [address] Scheduled Procedures Name Priority Associated Diagnoses Date/Ti me ROBOTIC-ASSISTED MULTIPORT CHOLECYSTECTOMY Cholecystitis Chronic Health Maintenance Due Date Last Done Comments [...] 02/07/2024 Visit: Medicare Annual Wellness 02/07/2025 02/07/2024 COVID-19 Vaccine ( season) 2025 05/18/2025, 12/04/2024, 05/17/2024, Additional history exists Creatinine Level (Kidney Function Test) 06/03/2026 06/03/2025, 05/27/2025, 05/06/2025, Additional history exists Potassium Level 06/03/2026 06/03/2025, 10/2024, 05/06/2025, Additional history exists Sodium Level 06/03/2026 06/03/2025, 10/2024, 05/06/2025, Additional history exists Fasting Glucose for Diabetes Screening 06/03/2028 06/03/2025, 05/27/2025, 05/06/2025, Additional history exists DTaP,Tdap,and Td Vaccines (3 - Td or Tdap) 04/08/2029 04/08/2019, 08/21/2009, 08/16/1999 Lipid (Cholesterol) Screening 11/05/2029 11/05/2024, 10/25/2021, 04/06/2020, Additional history exists Zoster Vaccines Completed 03/09/2018, 12/22, 08/21/2009 RSV vaccine - (32-36 weeks) or 50+ years Completed 05/17/2024 Abdominal Aortic Aneurysm (AAA) Screen Discontinued 01/23/2025, 09/15/2024, 09/02/2024, Additional history exists Fall Risk Screen (Annual) Completed 02/04/2025 Influenza Vaccine Completed 05/16/2025, , 05/16/2023, Additional history exists Pneumococcal vaccine (50+ years) Completed 05/16/2025, 03/21/2019, 04/21/2015, Additional history exists IPV Vaccines Aged Out No longer eligi ble based on patient's age to complete this topic Medical Devices Implanted Type Area Drier Feeder Device Identifier Shelf Expiration Date Model / Serial / Lot Scrw St 24pthrd 8.0x105 - [id number] Implanted:Qty : 1 on 12/15/2022 by Jana Don M.D. at [facility] Hardware e.g. pins/screws/ rods Right: [employer] [id number] / / Scrw Vthrd Fast 7.0x105 - [id number] Implanted:Qty : 2 on 12/15/2022 by Jana Don M.D. at [facility] Hardware e.g. pins/screws/ rods Right: [employer] [id number] / / Washr Flt 1.5x13 - [id number] Implanted:Qty : 4 on 12/15/2022 by Jana Don M.D. at [facility] Hardware e.g. pins/screws/ rods Right: [employer] [id number] / / Procedures Procedure Name Priority Date/Time Associated Diagnosis Comments GLUCOSE POCT, B Routine 02/27/2025 6:54 AM CDT COMPREHENSIVE METABOLIC PANEL, S/P Routine 02/27/2025 6:[address] ABDOMEN PELVIS WITH IV CONTRAST RAD - Semiurgent (Fast; most ED patients; some inpatients) 01/23/2025 7:35 PM CDT LIPID PANEL, S Routine 11/05/2024 9:32 AM CDT Cholecystitis Preoperative Examination Cardiovascular Hyperlipidemia On Treatment Atherosclerotic Heart Disease Of [place] Coronary Artery Without Angina Pectoris from Last 3 Months or Most Recently Relevant to Health Maintenance Results * CT Abdomen Pelvis with IV Contrast [...] Possible chronic cystitis. us Ollie Walters M.D. [facility] CT PROCEDURES Final Result * (ABNORMAL) Lipid Panel (11/05/2024 9:32 AM CDT) Pathologist [facility] Triglycerides 348(H) mg/dL 11/05/2024 10:02 AM CDT [...] Li M.D. LAB BLOOD ADD-ON Final Result [facility] [address] [place] [address], [facility] in [place] [address] [address] from Last 3 Months or Most Recently Relevant to Health Maintenance Insurance MEDICA Advance Directives For more information, please contact: [phone] Documents on File Type Date Recorded Patient Application Development Liaison Expl anation Advance Directives 08/08/2024 6:58 AM [...] 5:41 PM 12/15/2022 11:01 AM Care Teams Occupational Therapist'S Assistant Relationship Specialty Start Date End Date Jeff Reyes M.D. [address] [place] [phone] PCP - General 03/14/24
--- OUTSIDE RECORDS SUMMARY | 2025-06-05 00:17 | XMS_ITS | Clinical Summary ---
Author Organization [place] Address [facility] [place] [address] Care Team Providers Care Scientist Name Role Phone Bijan Crawford Primary Care Provider [phone] Rl Evans MD Unavailable Allergies Active Allergy Reactions Criticality Noted Date [...] Encounters Date Type Department Care Team Description 05/27/2025 Telephone [facility] [address] [phone] Rl Evans MD 04/21/2025 Telephone [facility] [address] [phone] Rl Evans MD 03/10/2025 Telephone [facility] [address] [phone] Rl Evans MD conversation (Dr pierres to discuss patient with Dr Evans) from Last 3 Months Social History Tobacco Use Types Packs/Day Years Used Date Smoking Tobacco: Former Cigarettes Q uit: 07/24/1971 Smokeless Tobacco: Never Tobacco Cessation:Counseling Given: Not Answered Sex and Gender Information Value Date Recorded Sex Assigned at Not on file Legal Sex Male 2:17 PM TITLE INSURANCE AGENT Gender Identity Not on file Sexual Orientation [...] 2015 PHQ-2 (once per calendar year) 2024 COVID-19 VACCINE (2024- season) 2025 12/04/2024, 05/17/2024, 11/21/2023, Additional history exists INFLUENZA VACCINE (#1) 2025 , 05/16/2023, 05/08/2003, Additional history exists DTAP/TDAP/TD VACCINE (3 - Td or Tdap) 04/08/2029 04/08/2019, 08/21/2009, 08/16/1999 ADVANCE CARE PLANNING 02/25/2030 02/25/2025 ZOSTER VACCINE Completed 03/09/2018, 12/22, 08/21/2009 PNEUMOCOCCAL VACCINE 50+ YEARS Completed 03/21/2019, 04/21/2015, 08/03/2011 RSV VACCINE Completed 05/17/2024 AORTIC ANEURYSM SCREENING (SYSTEM ASSIGNED) Completed 01/23/2025, [...] STACEY <=8 ug/mL: Susceptible Pseudomonas luteola Gentamicin STAECY <=2 ug/mL: Susceptible Pseudomonas luteola Tobramycin STACEY <=2 ug/mL: Susceptible Pseudomonas luteola Piperacillin/Tazobactam STCAEY <=8 ug/mL: Susceptible Pseudomonas luteola Meropenem STACEY <=0.5 ug/mL: Susceptible Pseudomonas luteola Trimethoprim/Sulfame thoxaz ole STACEY <=2/38 ug/mL: Susceptible Comment:Antibiotics listed a s No Interpretation have no regulatory guidelines for susceptibility/resistance available. Narinder Noe MD LAB - MICRO GENERAL ORDER TOMY Final Result [facility] Inf. Diseases Diag. Lab [address] [facility], [address] [place] [phone], [place] from Last 3 Months Insurance MEDICA DUAL [employer]IONS [facility] MED[employer] [facility] Advance Directives For more information, please contact: [phone] Documents on File Type Date Recorded Patient Instrument Repair Supervisor Expl anation Advance Directives and Livin g Will 02/25/2025 POLST 01/26/2023 Care Teams Scientist Relationship Specialty Start Date End Date Bijan Crawford [address] [place] [address] PCP - General Family Medicine 01/20/25 Rl Evans MD [address] [facility], [facility] [address] [place], [place] [address] Assigned Infectious Disease Provider 03/15/25
--- OUTSIDE RECORDS SUMMARY | 2025-06-05 00:17 | XMS_ITS | Encounter Summary ---
Author Organization [place] Address [address] [facility] [address] Care Team Providers Care Guitar Technician Name Role Phone Bijan Crawford Primary Care Provider [phone] Rl Evans MD Unavailable [phone] Reason for Visit * Reason Onset Date Comments conversation 03/10/2025 wantnitza to disc uss patient with Dr Evans Encounter Details Date Type Department Care Team ([facility] Contact Info) Description 03/10/2025 [facility] [address] [address] Rl Evans MD [address] [facility], [facility] [address] [place] [address] conversation ( wants to discuss patient with Dr Evans) Social History Tobacco Use Types Packs/Day Years Used Date Smoking Tobacco: Former Cigarettes Q uit: 07/24/1971 Smokeless Tobacco: Never Sex and Gender Information Value Date Recorded Sex Assigned at Not on file Legal Sex Male 2:17 PM HOT SHOT Gender Identity Not on file Sexual Orientation Not on file documented as of this encounter Miscellaneous Notes * Telephone Encounter - Cielo Valdivia - 03/10/2025 3:06 PM CDT [facility] Phone Message May a detailed message be left on voicemail: yes Reason for Call: Silvia calling to let Dr Evans know that Dr Stella Mejia from [facility] would like to talk to him about the patient. Please call her on cell phone. Number given. [phone] Action Taken: Message routed to: [facility] ID Travel Screening: Not Applicable Date of Service: documented in this encounter Plan of Treatment Not on file documented as of this encounter Visit Diagnoses Not on filedocumented in this encounter Care Teams Guitar Technician Relationship Specialty Start Date End Date Bijan Crawford [address] [place], [place] [address] PCP - General Family Medicine 01/20/25 Rl Evnas MD [address] [place] [address], [facility] [address] [place], [place] [id number] Assigned Infectious Disease Provider 03/15/25 documented as of this encounter
--- OUTSIDE RECORDS SUMMARY | 2025-06-05 00:17 | XMS_ITS | Patient Health Record ---
Author Organization [facility] Address [address] [place] [address] Care Team Providers Care Studio Receptionist Name Role Phone Rubén Paez MD Primary Care Provider Melody Michael [place] Unavailable [phone] Reason For Referral No Information Social History Tobacco Use: Social History Observation Description Date Details (start date - stop date) Former Smoker NA - NA Tobacco Use/Smoking Question Answer Notes Are you a former smoker Section Notes: FAMILY HISTORY: HISTORY OF FAMILY PSYCH: Problems Problem Type SNOMED Code ICD Code Onset Dates Problem Status W/U Status Risk Notes Problem Tinea unguium (761245358) Tinea unguium (B35.1) Active confirmed Problem 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 (183950650) 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 confirmed Problem Nail dystrophy (22684959) 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 Problem Pressure injury of right buttock stage III (disorder) (60588768785220 ) Pressure ulcer of right buttock, stage 3 (L89.313) Active confirmed Problem Pressure injury of right heel stage IV (disorder) (33903135717187 ) Pressure ulcer of right heel, stage 4 (L89.614) Active confirmed Plan Of Treatment No Information Insurance Providers Payer Name Payer Address Payer Phone Subscriber Number Group Number Insured Name Patient Relationship to Insured Coverage Start Date Coverage End Date [employer] [address] (Government Programs) [address] [address] [place], [place] [id number] Ren Ramirez Self - patient is the insured 7 [facility] Government Services/Med icare [address] [facility] [address] [id number] Ren Ramirez Self - patient is the insured 3
--- OUTSIDE RECORDS SUMMARY | 2025-06-05 08:00 | XMS_ITS | Encounter Summary ---
Author Organization [facility] Address [address] [place] [address] Care Team Providers Care Street Railway Line Installer Name Role Phone Jeff Reyes M.D. Primary Care Provider Reason for Visit * Outpatient (Routine) - Authorized Specialty Diagnoses / Procedures Referred By Jono donohue Referred To Contact Radiology Diagnoses Cholecystitis Procedures IR Percutaneous Cholecystostomy Tube Exchange Anuel Nunn M.D. [address] [place] [phone] Phone: tel: fax: [facility] Region Referral ID Status Reason Start Date Expiration Date V isits Requested Visits Authorized [id number] Authorized 02/05/2025 05/08/2026 1 1 Encounter Details Date Type Department Care Team (Late st Contact Info) Description 06/05/2025 8:00 AM [facility] Hospital Encounter Department of Radiology in [place], [place] [address] [place] [phone] Anuel Nunn M.D. [address] [place] [phone] Rosenda Pedroza APRN, C.N.P., M.S.N. 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 [address] [place] [phone] 07/22/2025 4:20 PM ASSOCIATE PROF[employer]OM[employer] Office Visit Department of Oncology in [place], [place] [address] [place] [phone] Pablo Vo M.D. [address] [place] [phone] Scheduled Orders Name Type Priority Associated Diagnoses Order Schedule IR Percutaneous Cholecystostomy Tube Exchange Imaging RAD - Routine (most inpatients and all outpatients) Cholecystitis Expected: 05/08/2025, Expires: 05/08/2026 Scheduled Procedures Name Priority Associated Diagnoses Date/Ti me ROBOTIC-ASSISTED MULTIPORT CHOLECYSTECTOMY Cholecystitis Chronic documented as of this encounter Visit Diagnoses Not on filedocumented in this encounter Additional Health Concerns Assessment Noted Time PHQ-9 Depression Total Score: 10 018 11:00 AM CDT documented as of this encounter Care Teams Street Railway Line Installer Relationship Specialty Start Date End Date Jeff Reyes M.D. NPChandan: [phone] [address] [place] [phone] PCP - General 03/14/24 documented as of this encounter
== END 2025-06-04 14:34 | disposition home or self-care (01) ==
LOC: NPINS 14:33
PROVIDERS: PCP Family Medicine; Visit Provider Nurse Practitioner Gerontology
DX: R05.1 Acute cough (principal)
CPT/HCPCS: 87631

== ENCOUNTER 2025-06-11 12:30 | Outpatient (CLI) | payer MEDICARE, SELFPAY | END 2025-06-11 12:31 | disposition home or self-care (01) | LOC: WOUND 12:30 | PROVIDERS: PCP Family Medicine; Visit Provider Surgery | DX: M86.68 Other chronic osteomyelitis, other site (principal); L89.324 Pressure ulcer of left buttock, stage 4; L89.152 Pressure ulcer of sacral region, stage 2; L89.894 Pressure ulcer of other site, stage 4; G82.20 Paraplegia, unspecified; Z99.3 Dependence on wheelchair; Z96.0 Presence of urogenital implants | CPT/HCPCS: 15271; Q4201 ==

== ENCOUNTER 2025-06-17 07:19 | Outpatient (CLI) | payer MEDICARE, SELFPAY | END 2025-06-17 07:20 | disposition home or self-care (01) | LOC: AMB 06-20 02:41 | PROVIDERS: PCP Family Medicine; Visit Provider Emergency Medicine | DX: K94.23 Gastrostomy malfunction (principal) | CPT/HCPCS: A0425; A0427 ==

== ENCOUNTER 2025-06-18 13:36 | Outpatient (REF) | payer MEDICARE, SELFPAY ==
--- OUTSIDE RECORDS SUMMARY | 2025-05-28 11:30 | XMS_ITS | Encounter Summary ---
Author Organization [facility] Address [address] [place] [address] Care Team Providers Care Mapping Pilot Name Role Phone Jeff Reyes M.D. Primary Care Provider [phone] Reason for Visit * Reason Comments Patient Education David noyola Encounter Details Date Type Department Care Team (Late st Contact Info) Description 05/28/2025 11:30 AM HOME HEALTH ATTENDANT Nurse Only Department of General Surgery in [place], [place] [address] [place] [address] Dena Salinas, RAmparoN., [facility] [address] [place] [address] Patient Education (David noyola) Social History Tobacco [...] daily living? Patient unable to answer 02/27/2025 [facility] Utilities Answer Date Recorded In the past 12 months has th e [employer], gas, oil, or water company threatened to [...] Sex Assigned at Male 06/26/2018 4:20 PM HOME HEALTH ATTENDANT Legal Sex Male 3:33 AM HOME HEALTH ATTENDANT Gender Identity Not on file Sexual Orientation Not on file documented as of this encounter Progress Notes * Dena Salinas R.N., CBCN - 05/28/2025 11:30 AM CST Education Documentation Treating Constipation Caused By Pain Medications [id number], taught by Dena Salinas R.N., CBCN at 06/02/2025 10:17 AM. Learner: Family, Patient Readiness: Acceptance Method: Explanation, Handout Response: Able to Teach Back Comment: hold eliquis 3 days prior to surgery Acute Pain and the Healing Process WA2943, taught by Dena Salinas R.N., CBCN at 06/02/2025 10:17 AM. Learner: Family, Patient Readiness: Acceptance Method: Explanation, Handout Response: Able to Teach Back Comment: hold eliquis 3 days prior to surgery Surgical Site Infection Reducing Your Risk [id number], taught by Dena Salinas R.N., CBCN at [...] his Eliquis safely per the Oncology team. HEALTH ATTENDANT documented in this encounter Plan of Treatment Upcoming Encounters Date Type Department Care Team (Latest Contact Info) Description 07/14/2025 11:15 AM HOME HEALTH ATTENDANT Appointment Department of Radiology in [place], [place] [address] [address] Pablo Vo M.D. [address] [place] [address] 07/22/2025 4:20 PM HOME HEALTH ATTENDANT Office Visit Department of Oncology in [place], [place] [address] [address] Pablo Vo M.D. [address] [place] [address] 08/06/2025 9:44 AM HOME HEALTH ATTENDANT Hospital Encounter Outpatient Procedure Center in [address] [address] Roland Benson D.O. [address] [place] [address] 08/06/2025 9:44 AM HOME HEALTH ATTENDANT - 08/06/2025 11:42 AM HOME HEALTH ATTENDANT Surgery Outpatient Procedure Center in [place], [place] [address] [place] [address] Roland Benson D.O. [address] [place] [address] ROBOTIC-ASSISTED MULTIPORT CHOLECYSTECTOMY Scheduled Procedures Name Priority Associated Diagnoses Date/Ti co ROBOTIC-ASSISTED MULTIPORT CHOLECYSTECTOMY Cholecystitis Chronic 08/06/2025 9:44 AM HOME HEALTH ATTENDANT documented as of this encounter Visit Diagnoses Diagnosis Cholecystitis Chronic- Primary Cholecystitis Chronic- Primary Cholecystitis Chronic documented in this encounter Additional Health Concerns Assessment Noted Time PHQ-9 Depression Total Score: 10 018 11:00 AM CDT documented as of this encounter Care Teams Mapping Pilot Relationship Specialty Start Date End Date Jeff Reyes M.D. [address] [place] [phone] PCP - General 03/14/24 documented as of this encounter
--- OUTSIDE RECORDS SUMMARY | 2025-05-28 11:30 | XMS_ITS | Encounter Summary ---
Author Organization [facility] Address [address] [place] [address] Care Team Providers Care Dental Office Manager Name Role Phone Jeff Reyes M.D. Primary Care Provider [phone] Reason for Referral * Outpatient (Routine) - Authorized Specialty Diagnoses / Procedures Referred By Jono donohue Referred To Contact Anesthesiology Diagnoses Cholecystitis Chronic [place] [facility] [place] [address] Phone: tel: fax: [facility] Referral ID Status Reason Start Date Expiration Date V isits Requested Visits Authorized [id number] Authorized 05/28/2025 11/27/2026 1 1 ON BUYER Reason for Visit * Reason Comments Consult 75 year old male wit h multiple medical comorbidities, cholecystitis requiring cholecystostomy tube, cleared by cardiology for possible cholecystectomy on 11/15/2024, please re-evaluate for cholecystectomy candidacy * Outpatient (Routine) - Closed Specialty Diagnoses / Procedures Referred By Jono donohue Referred To Contact General Surgery Diagnoses Cholecystitis Anuel Nunn M.D. [address] [place] [address] Phone: tel: fax: [facility] Referral ID Status Reason Start Date Expiration Date V isits Requested Visits Authorized [id number] Closed Specialty Services Required 02/04/2025 08/06/2026 1 1 Encounter Details Date Type Department Care Team (Latest Contact Info) Description 05/28/2025 11:30 AM COTTON BUYER Comprehensive Visit Department of General Surgery in [place], [place] [address] [place] [phone] [place] [facility] [place] [address] Cholecystitis Chronic (Primary Dx) Social History Tobacco Use Types Packs/Day Years Used Date Smoking Tobacco: Former Cigarettes 0 Q uit: 1978 Passive Smoke Exposure: Never Tobacco Cessation:Counseling Given: Yes Alcohol Use Standard Drinks/Week Comments Not Currently [...] Patient unable to answer 02/27/2025 [facility] Utilities Answer Date Recorded In the [...] Sex Assigned at Male 06/26/2018 4:20 PM COTTON BUYER Legal Sex Male 3:33 AM COTTON BUYER Gender Identity Not on file Sexual Orientation Not on file documented as of this encounter Last Filed Vital Signs Vital Sign Reading Time Taken Comments Blood Pressure 165/74 05/28/2025 11:30 AM COTTON BUYER Pulse 54 05/28/2025 11:30 AM COTTON BUYER Temperature 36.1 C (96.9 F) 05/28/2025 11:22 AM COTTON BUYER Respiratory Rate - - Oxygen Saturation - - Inhaled Oxygen Concentration - - Weight 104 kg (229 lb) 05/28/2025 11:22 AM COTTON BUYER at facility this morning per patient Height 182.9 cm (6' 0.01) 05/28/2025 1 1:22 AM COTTON BUYER Body Mass Index 31.05 05/28/2025 11:22 AM COTTON BUYER documented in this encounter Progress Notes * [place] [...] some confusion and acute kidney injury in [place] in March. Since then he has not [...] to proceed with robotic cholecystectomy in July. ON BUYER documented in this encounter Plan of Treatment Upcoming Encounters Date Type Department Care Team (Latest Contact Info) Description 07/14/2025 11:15 AM COTTON BUYER Appointment Department of Radiology in [place], [place] [address] [place] [address] Pablo Vo M.D. [address] [place] [address] 07/22/2025 4:20 PM COTTON BUYER Office Visit Department of Oncology in [place], [place] [address] [address] Pablo Vo M.D. [address] [place] [address] 08/06/2025 9:44 AM COTTON BUYER Hospital Encounter Outpatient Procedure Center in [address] [address] [place] [facility] [address] [place] [phone] 08/06/2025 9:44 AM COTTON BUYER - 08/06/2025 11:42 AM COTTON BUYER Surgery Outpatient Procedure Center in [address] [phone] [place] [facility] [place] [address] ROBOTIC-ASSISTED MULTIPORT CHOLECYSTECTOMY Scheduled Procedures Name Priority Associated Diagnoses Date/Ti il ROBOTIC-ASSISTED MULTIPORT CHOLECYSTECTOMY Cholecystitis Chronic 08/06/2025 9:44 AM COTTON BUYER Scheduled Referrals Name Type Priority Associated Diagnoses Order Schedule Preoperative Evaluation [facility]LIE consult (clinic) Outpatient Referral Routine Cholecystitis Chronic 1 Occurrences starting 05/28/2025 until 08/28/2026 documented as of this encounter Visit Diagnoses Diagnosis Cholecystitis Chronic- Primary Cholecystitis Chronic- Primary Cholecystitis Chronic documented in this encounter Additional Health Concerns Assessment Noted Time PHQ-9 Depression Total Score: 10 018 11:00 AM CDT documented as of this encounter Care Teams Dental Office Manager Relationship Specialty Start Date End Date Jeff Reyes M.D. [facility] [place] [address] PCP - General 03/14/24 documented as of this encounter
--- OUTSIDE RECORDS SUMMARY | 2025-06-05 07:09 | XMS_ITS | Encounter Summary ---
Author Organization [facility] Address [address] [place] [address] Care Team Providers Care Nephrology Social Worker Name Role Phone Jeff Reyes M.D. Primary Care Provider [phone] Reason for Referral * Outpatient (Routine) - Closed Specialty Diagnoses / Procedures Referred By Contac t Referred To Contact Radiology Diagnoses Cholecystitis Procedures IR Percutaneous Cholecystostomy Tube Exchange Anuel Nunn M.D. [address] [place] [phone] Phone: tel: fax: [facility] Referral ID Status Reason Start Date Expiration Date Visits Re quested Visits Authorized [id number] Closed 02/05/2025 05/08/2026 1 1 ET [facility] Reason for Visit * Outpatient (Routine) - Closed Specialty Diagnoses / Procedures Referred By Jono donohue Referred To Contact Radiology Diagnoses Cholecystitis Procedures IR Percutaneous Cholecystostomy Tube Exchange Anuel Nunn M.D. [address] [place] [phone] Phone: tel: fax: [facility] Referral ID Status Reason Start Date Expiration Date Visits Re quested Visits Authorized [id number] Closed 02/05/2025 05/08/2026 1 1 Encounter Details Date Type Department Care Team (Latest Contact Info) Description 06/05/2025 7:[address] [facility] - 06/05/2025 8:[address] [facility] Encounter Department of Radiology in [place], [place] [address] [place] [phone] Anuel Nunn M.D. [address] [place] [phone] Rosenda Pedroza APRN, C.N.P., M.S.N. [address] [place] [phone] Cholecystitis Discharge Disposition: Home or Self Care [...] daily living? Patient unable to answer 02/27/2025 [facility] Utilities Answer Date Recorded In [...] Sex Assigned at Male 06/26/2018 4:[address] [facility] Legal Sex Male 3:[address] [facility] Gender Identity Not on file Sexual Orientation Not on file documented as of this encounter Last Filed Vital Signs Vital Sign Reading Time Taken Comments Blood Pressure 142/56 06/05/2025 8:[address] [facility] Pulse 65 06/05/2025 8:[address] [facility] Temperature 35.9 C (96.6 F) 06/05/2025 7:[address] [facility] Respiratory Rate 16 06/05/2025 7:[address] [facility] Oxygen Saturation 95% 06/05/2025 8:[address] [facility] Inhaled Oxygen Concentration - - Weight - - Height - - Body Mass Index - - documented in this encounter Medications at Time of Discharge acetaminophen (TylenoL) 500 mg tablet Take 2 tablets (1,000 mg total) by mouth 3 (three) times a day. 08/16/2024 allopurinoL (Zyloprim) 100 mg tablet Take 100 mg by mouth daily. apixaban (Eliquis) 5 mg tablet Take 5 mg by mouth 2 (two) times a day. 12/17/2024 atorvastatin (Lipitor) 80 mg tablet Take 1 tablet (80 mg total) by mouth at bedtime. 90 tablet 3 11/08/2024 baclofen (LIORESAL) 10 mg tabletIndications: Multiple Sclerosis, Unspecified (HCC) Take 1 tablet (10 mg total) by mouth 2 (two) times a day. 60 tablet 12/08/2022 calcium carbonate (TUMS) 500 mg (200 mg calcium) chewable tablet Chew 2 tablets (400 mg of calcium total) 2 (two) times a day. 12/22/2022 cholecalciferol 25 mcg (1,000 unit) tablet Take 1 tablet (25 mcg total) by mouth daily. 08/16/2024 ferrous sulfate tablet Take 325 mg by mouth every other day. fluticasone propionate (Flonase) 50 mcg/actuation nasal spray Administer 1 spray into each nostril 2 (two) times a day. 02/18/2025 metoprolol succinate (TOPROL-XL) 100 mg 24 hr [...] ounces) of beverage. 30 each 1 01/25/2023 sertraline (Zoloft) 25 mg tablet Take 25 mg by mouth daily. 03/28/2025 acetic acid 0.25 % irrigation (sterile) Apply to buttocks wounds topically as needed for wound care AntifungaL, clotrimazole, 1 % cream Apply 1 Application topically 2 (two) times a day. 05/14/2024 bacitracin 500 unit/gram ointment Apply 1 Application topically 2 (two) times a day. 08/10/2023 BD PosiFlush Normal Saline 0.9 injection Use 10 mL via irrigation every day 01/13/2025 carbamide peroxide (Debrox) 6.5 % otic solution Administer 5 drops into each ear as needed. cetirizine (ZyrTEC) 10 mg tablet Take 10 mg by mouth at bedtime. diclofenac sodium (Voltaren) 1 % gelIndications:Mul tiple Sclerosis, Unspecified (HCC) Apply 2 g topically [...] mg by mouth daily with evening meal. nitroglycerin (Nitrostat) 0.[address] 0.4 mg under the tongue every 5 (five) minutes as needed for chest pain. 02/05/2025 potassium chloride 10 mEq ER capsule Take 1 capsule (10 mEq total) by mouth 2 (two) times a day with meals. 08/16/2024 predniSONE (Deltasone) 20 mg tablet 05/22/2025 saliva [...] of this encounter Procedure Notes * Rosenda Pedroza, EUSEBIO, C.N.P., M.S.N. - 06/05/2025 8:36 AM CST [...] Please see Radiology Report for full details. KITCHEN AIDE Rosenda Pedroza APRN, C.N.P., M.S.N. Qasim Rader MD SPECIMENS REMOVED None. ESTIMATED BLOOD LOSS <5ml COMPLICATIONS None. PATIENT DISPOSITION Return to outpatient unit for recovery. Discharge patient when discharge criteria met. PLAN Return in 3 months for routine exchange if tube is retained. Planned cholecystectomy with General Surgery in July. ET [facility] documented in this encounter Plan of Treatment Upcoming Encounters Date Type Department Care Team (Latest Contact Info) Description 07/14/2025 11:[address] [facility] Appointment Department of Radiology in [place], [place] [address] [place] [phone] Pablo Vo M.D. [address] [place] [phone] 07/22/2025 4:[address] [facility] Office Visit Department of Oncology in [place], [place] [address] [place] [phone] Pablo Vo M.D. [address] [place] [phone] 08/06/2025 9:[address] [facility] Encounter Outpatient Procedure Center in [address] [phone] Roland Benson D.OAmparo [address] [place] [phone] 08/06/2025 9:[address] [facility] - 08/06/2025 11:[address] [facility] Surgery Outpatient Procedure Center in [address] [phone] Roland Benson D.O. [address] [place] [phone] ROBOTIC-ASSISTED MULTIPORT CHOLECYSTECTOMY Scheduled Procedures Name Priority Associated Diagnoses Date/Ti md ROBOTIC-ASSISTED MULTIPORT CHOLECYSTECTOMY Cholecystitis Chronic 08/06/2025 9:[address] [facility] documented as of this encounter Procedures Procedure Name Priority Date/Time Associated Diagnosis Comments IR PERCUTANEOUS CHOLECYSTOSTOMY TUBE EXCHANGE RAD - Routine (most inpatients and all outpatients) 06/05/2025 8:[address] [facility] Cholecystitis documented in this encounter Results * IR Percutaneous Cholecystostomy Tube Exchange (06/05/2025 8:[address] [facility]) Anatomical Region Laterality Modality Abdomen, Vascular Interventi onal RST LOS, Vascular Interventional ARZ LOS, Vascular Interventional FLA LOS N/A X-Ray Angiography Impressions 06/05/2025 9:[address] [facility] Expedited exchange and downsize to a 10.2 Cypriot cholecystostomy catheter. Narrative 06/05/2025 9:[address] [facility] EXAM: IR PERCUTANEOUS CHOLECYSTOSTOMY TUBE EXCHANGE INDICATION: 75 year old male with history of cholecystitis requiring 14 Cypriot cholecystostomy tube, routine 3 month exchange COMPARISON: [...] medications. Patient education provided by a care shipping team leader. Patient was ready to learn with no apparent learning barriers were identified. Post-procedure care explained; patient expressed understanding of the content. PROCEDURE DETAILS: Sedation: None. Local anesthesia was achieved with lidocaine. Sedation time: NA Estimated Blood Loss: Less than 10 mL. TECHNIQUE: Imaging guidance for catheter exchange: Fluoroscopy with permanent image storage Access side: Right lateral abdomen Catheter: 10.2 Cypriot Ruff-Franco catheter Technique: The indwelling 14 Cypriot catheter was injected with contrast. A guidewire was inserted through the catheter, and the catheter was exchanged for a new 10.2 Cypriot catheter. Contrast was injected confirming the location of the catheter. A permanent image was saved to PACS. The catheter was connected to a gravity drainage bag. Intraprocedural or immediate post-procedural complications: None FINDINGS: Initial images show catheter retracted into tract. Wire and KMP placed into gallbladder and contrast injection performed. No contrast flowed beyond the gallbladder, occluded cystic duct. Catheter exchanged and downsized to 10.2 Fr Ruff-Franco catheter. Catheter tip location: Final fluoroscopic image demonstrates the catheter tip to be located within the gallbladder. Additional observations: N/A PLAN: The patient is to return in 3 months for a routine catheter exchange if tube is retained. Follow up with General Surgery for planned cholecystectomy. Procedure Note Rosenda Pedroza APRN, C.N.P., M.S.N. - 06/05/2025 EXAM: IR PERCUTANEOUS [...] medication list was reviewed and there are nochanges to current medications. Patient education provided by [...] Access side: Right lateral abdomen Catheter: 10.2 Cypriot Ruff-Franco catheter Technique: The indwelling 14 Cypriot catheter was injected with contrast. Aguidewire was inserted through the catheter, and the catheter wasexchanged for a new 10.2 Cypriot catheter. Contrast was injected confirmingthe location of [...] Expedited exchange and downsize to a 10.2 Cypriot cholecystostomycatheter. us Anuel SANCHEZ IR PROCEDURES Final Resul t documented in this encounter Visit Diagnoses Diagnosis Cholecystitis Chronic- Primary Cholecystitis Cholecystitis Chronic documented in this encounter Administered Medications Inactive Administered Medications - up to 3 most recent administrations Medication Order MAR Action Action Date Dose Rate Site iohexoL 350 mg iodine/mL solution (Omnipaque) As needed, Starting on Jayla 06/05/25 at 0830, Intra-Op Given 06/05/2025 8:[address] [facility] 15 mL lidocaine-sodium bicarbonate (buffered) 0.9%-0.84% injection infiltration, As needed, Starting on Jayla 06/05/25 at 0812, Intra-Op Given 06/05/2025 8:[address] [facility] 4 mL Abdominal Tissue documented in this encounter Active and Recently Administered Medications Times are shown in STREET [facility]. PRN Medication Order 06/03/2025 06/04/2025 06/05/2025 iohexoL 350 mg iodine/mL solution (Omnipaque) (COMPLETED) As needed, Starting on Jayla 06/05/25 at 0830, Intra-Op 0830 (Given - Provid er: Rosenda Pedroza APRN, C.N.PAmparo, M.S.N.) lidocaine-sodium bicarbonate (buffered) 0.9%-0.84% injection (COMPLETED) infiltration, As needed, Starting on Jayla 06/05/25 at 0812, Intra-Op 0812 (Given - Provid er: Rosenda Pedroza APRN, C.N.Gail, M.S.N. - Comment: Blanca tube insertion site) documented in this encounter Additional Health Concerns Assessment Noted Time PHQ-9 Depression Total Score: 10 018 11:00 AM CDT documented as of this encounter Care Teams Nephrology Social Worker Relationship Specialty Start Date End Date Jeff Reyes M.D. [address] [place] [phone] PCP - General 03/14/24 documented as of this encounter
--- OUTSIDE RECORDS SUMMARY | 2025-06-17 08:51 | XMS_ITS | Encounter Summary ---
Author Organization [facility] Address [address] [place] [address] Care Team Providers Care Pathology Assistant Name Role Phone Jeff Reyes M.D. Primary Care Provider Reason for Referral * Outpatient (Routine) - Authorized Specialty Diagnoses / Procedures Referred By Jono donohue Referred To Contact Radiology Diagnoses Cholecystitis Procedures IR Percutaneous Cholecystostomy Tube Exchange Rosenda Pedroza APRN C.N.P., M.S.N. [address] [place] [address] Phone: tel: fax: [facility] Region Referral ID Status Reason Start Date Expiration Date V isits Requested Visits Authorized [id number] Authorized 06/17/2025 09/17/2026 1 1 EAR SUPERVISING OPERATOR Reason for Visit * Reason Comments Wound Care Patient arrives via EMS with concerns that his gallbladder tube fell out this morning. Patient resides at [facility] and is not mobile. Denies pain upon arrival. Tube area is covered with a dressing and a small amount of blood is noted. VSS. Encounter Details Date Type Department Care Team ([facility] st Contact Info) Description 06/17/2025 8:51 AM NUCLEAR SUPERVISING OPERATOR - 06/17/2025 2:21 PM NUCLEAR SUPERVISING OPERATOR Emergency [facility] Emergency Department [address] [place] [phone] Shayna Conteh P.A.-C. [address] [place] [address] Cholecystitis (Primary Dx); Encounter For Change Or Removal Of Drains Discharge Disposition: Home or Self Care Social [...] answer 02/27/2025 [facility] Utilities Answer Date Recorded In the past 12 months has [employer], gas, oil, or water [employer] threatened to shut off services in your [...] Sex Assigned at Male 06/26/2018 4:20 PM NUCLEAR SUPERVISING OPERATOR Legal Sex Male 3:33 AM NUCLEAR SUPERVISING OPERATOR Gender Identity Not on file Sexual Orientation Not on file documented as of this encounter Last Filed Vital Signs Vital Sign Reading Time Taken Comments Blood Pressure 135/61 06/17/2025 2:00 PM NUCLEAR SUPERVISING OPERATOR Pulse 65 06/17/2025 2:00 PM NUCLEAR SUPERVISING OPERATOR Temperature 36.6 C (97.9 F) 06/17/2025 8:56 AM NUCLEAR SUPERVISING OPERATOR Respiratory Rate 20 06/17/2025 1:00 PM NUCLEAR SUPERVISING OPERATOR Oxygen Saturation 90% 06/17/2025 2:00 PM NUCLEAR SUPERVISING OPERATOR Inhaled Oxygen Concentration - - Weight 106 kg (232 lb 12.9 oz) 06/17/2025 8:58 A M NUCLEAR SUPERVISING OPERATOR Height - - Body Mass Index 31.57 05/28/2025 11:22 AM NUCLEAR SUPERVISING OPERATOR documented in this encounter Discharge Instructions * Discharge Instructions* Shayna Conteh P.A.-C. - 06/17/2025 10:17 AM NUCLEAR SUPERVISING OPERATOR You came to the emergency department today for replacement of your blanca drain. IR was able to get this done and use a bigger tube. Please keep your follow up appointments as scheduled. Come back to the emergency department if any new or worsening concerns. EAR SUPERVISING OPERATOR EAR SUPERVISING OPERATOR documented in this encounter Medications at Time [...] not crush or chew. 90 tablet 11/13/2022 Mucus Relief ER 600 mg 12 hr tablet Take 600 mg by mouth 2 (two) times a day. 06/16/2025 ondansetron (ZOFRAN) 4 mg tablet Take 4 [...] * Rosenda Pedroza APRN, C.N.P., M.S.N. - 06/17/2025 10:16 AM CST BRIEF POST PROCEDURE NOTE Vascular & Interventional Radiology PROCEDURE Blanca tube exchange PRE-PROCEDURE DIAGNOSIS Cholecystitis, intermittent cystic duct occlusion POST-PROCEDURE DIAGNOSIS Same. PROCEDURE DETAILS / FINDINGS Completely dislodged 10.2 Fr cholecystostomy tube on initial findings. Decompressed gallbladder with contrast now flowing into cystic duct and duodenum. Exchanged for 12 Fr Ruff Franco cholecystostomy tube. Please see Radiology Report for full details. LAST REPAIRER HELPER Rosenda Pedroza APRN, C.N.P., M.S.N. SPECIMENS REMOVED None. ESTIMATED BLOOD LOSS <5ml COMPLICATIONS None. PATIENT DISPOSITION Return to outpatient unit for recovery. Discharge patient when discharge criteria met. PLAN Return in 3 months for routine exchange if tube is retained. Planned cholecystectomy with General Surgery in July. EAR SUPERVISING OPERATOR documented in this encounter Plan of Treatment Upcoming Encounters Date Type Department Care Team (Latest Contact Info) Description 07/14/2025 11:15 AM NUCLEAR SUPERVISING OPERATOR Appointment Department of Radiology in [place], [place] [address] [place] [phone] Pablo Vo M.D. [address] [place] [phone] 07/22/2025 4:20 PM NUCLEAR SUPERVISING OPERATOR Office Visit Department of Oncology in [place], [place] [address] [address] Pablo Vo M.D. [address] [place] [phone] 08/06/2025 9:44 AM NUCLEAR SUPERVISING OPERATOR Hospital Encounter Outpatient Procedure Center in [address] [phone] Roland Benson D.O. [address] [place] [phone] 08/06/2025 9:44 AM NUCLEAR SUPERVISING OPERATOR - 08/06/2025 11:42 AM NUCLEAR SUPERVISING OPERATOR Surgery Outpatient Procedure Center in [address] [phone] Roland Benson D.O. [address] [place] [phone] ROBOTIC-ASSISTED MULTIPORT CHOLECYSTECTOMY Scheduled Orders Name Type Priority Associated Diagnoses Order Schedule IR Percutaneous Cholecystostomy Tube Exchange Imaging RAD - Routine (most inpatients and all outpatients) Cholecystitis Expected: 09/17/2025 (Approximate), Expires: 09/17/2026 Scheduled Procedures Name Priority Associated Diagnoses Date/Ti nm ROBOTIC-ASSISTED MULTIPORT CHOLECYSTECTOMY Cholecystitis Chronic 08/06/2025 9:44 AM NUCLEAR SUPERVISING OPERATOR documented as of this encounter Goals Goal Patient Goal Type Associated Problems Recent Progress Patient-Stated? Author Autogenerat ed Goal Care Plan Autogenerated Problem No Lucia Kennedy documented as of this encounter Procedures Procedure Name Priority Date/Time Associated Diagnosis Comments IR PERCUTANEOUS CHOLECYSTOSTOMY TUBE EXCHANGE RAD - Semiurgent (Fast; most ED patients; some inpatients) 06/17/2025 10:04 AM NUCLEAR SUPERVISING OPERATOR documented in this encounter Results * IR Percutaneous Cholecystostomy Tube Exchange (06/17/2025 10:04 AM NUCLEAR SUPERVISING OPERATOR) Anatomical Region Laterality Modality Abdomen, Vascular Interventi onal RST LOS, Vascular Interventional ARZ LOS, Vascular Interventional FLA LOS N/A X-Ray Angiography Impressions 06/17/2025 10:20 AM NUCLEAR SUPERVISING OPERATOR Expedited exchange of the 12 Faroese cholecystostomy catheter. Narrative 06/17/2025 10:20 AM NUCLEAR SUPERVISING OPERATOR EXAM: IR PERCUTANEOUS CHOLECYSTOSTOMY TUBE EXCHANGE INDICATION: blanca tube pulled out sometime overnight, needs replacement COMPARISON: Prior images 06/05/25, 02/04/25 PROCEDURAL PERSONNEL: Attending: Rosenda Pedroza PREPROCEDURE: Patient seen, evaluated, and history reviewed. [...] medications. Patient education provided by a care seafood team member. Patient was ready to learn with no apparent learning barriers were identified. Post-procedure care explained; patient expressed understanding of the content. PROCEDURE DETAILS: Sedation: None. Local anesthesia was achieved with lidocaine. Sedation time: NA Estimated Blood Loss: Less than 10 mL. TECHNIQUE: Imaging guidance for catheter exchange: Fluoroscopy with permanent image storage Access side: Right lateral abdomen Catheter: 12 Faroese Ruff-Franco catheter Technique: The indwelling 10.2 Faroese catheter was completely dislodged. A guidewire and KUMPE catheter were inserted via existing tract and access gained into gallbladder, confirmed with contrast injection. The catheter was then exchanged over the wire for a new 12 Faroese Ruff-Franco catheter. Contrast was injected confirming the location of the catheter. A permanent image was saved to PACS. The catheter was connected to a gravity drainage bag. Dual 2-0 silk anchoring sutures applied. Intraprocedural or immediate post-procedural complications: None FINDINGS: Catheter tip location: Final fluoroscopic image demonstrates the catheter tip to be located within the gallbladder. Additional observations: Cystic duct is patent on today's exam with contrast flowing into the duodenum. PLAN: The patient is to return in 3 months for a routine catheter exchange. Procedure Note Rosenda Pedroza APRN, C.N.P., M.S.N. - 06/17/2025 EXAM: IR PERCUTANEOUS CHOLECYSTOSTOMY TUBE EXCHANGE INDICATION: blanca tube pulled out sometime overnight, needs replacement COMPARISON: Prior images 06/05/25, 02/04/25 PROCEDURAL PERSONNEL: Attending: Rosenda Pedroza PREPROCEDURE: Patient seen, evaluated, and history reviewed. [...] imagestorage Access side: Right lateral abdomen Catheter: 12 Faroese Ruff-Franco catheter Technique: The indwelling 10.2 Faroese catheter was completely dislodged.A guidewire and KUMPE catheter were inserted via existing tract and accessgained into gallbladder, confirmed with contrast injection. The catheterwas then exchanged over the wire for a new 12 Faroese Ruff-Muellercatheter. Contrast was injected confirming the location of the catheter.A permanent image was saved to PACS. The catheter was connected to agravity drainage bag. Dual 2-0 silk anchoring sutures applied. Intraprocedural or immediate post-procedural complications: None FINDINGS: Catheter tip location: Final fluoroscopic image demonstrates the cathetertip to be located within the gallbladder. Additional observations: Cystic duct is patent on today's exam withcontrast flowing into the duodenum. PLAN: The patient is to return in 3 months for a routine catheter exchange. IMPRESSION: Expedited exchange of the 12 Faroese cholecystostomy catheter. Shayna Conteh P.A.-C. IM IR PROCEDURES Final Result documented in this encounter Visit Diagnoses Diagnosis Cholecystitis Chronic- Primary Cholecystitis- Primary Encounter For Change Or Removal Of Drains Cholecystitis Chronic documented in this encounter Administered Medications Inactive Administered Medications - up to 3 most recent administrations Medication Order MAR Action Action Date Dose Rate Site apixaban tablet 5 mg (Eliquis) 5 mg, oral, 2 times daily, First dose (after last modification) on Mon06/17/25 at 1213 Given 06/17/2025 12:24 PM NUCLEAR SUPERVISING OPERATOR 5 mg baclofen tablet 10 mg (LioresaL) 10 mg, oral, 2 times daily, First dose (after last modification) on Mon06/17/25 at 1213 Given 06/17/2025 12:25 PM NUCLEAR SUPERVISING OPERATOR 10 mg furosemide tablet 40 mg (Lasix) 40 mg, oral, Every morning, First dose (after last modification) on Mon06/17/25 at 1213 Given 06/17/2025 12:29 PM NUCLEAR SUPERVISING OPERATOR 40 mg iohexoL 350 mg iodine/mL solution (Omnipaque) As needed, Starting on Mon06/17/25 at 0959, Intra-Op Given 06/17/2025 9:59 AM NUCLEAR SUPERVISING OPERATOR 10 mL lidocaine-sodium bicarbonate (buffered) 0.9%-0.84% injection infiltration, As needed, Starting on Mon06/17/25 at 0952, Intra-Op Given 06/17/2025 9:52 AM NUCLEAR SUPERVISING OPERATOR 5 mL metoprolol succinate 24 hr tablet 100 mg (Toprol XL) 100 mg, oral, Daily, First dose (after last modification) on Mon06/17/25 at 1213, Do NOT crush or chew. Tablet may be split on score if needed. Given 06/17/2025 12:28 PM NUCLEAR SUPERVISING OPERATOR [address] tablet 40 mg (Protonix) 40 mg, oral, 2 times daily before morning and evening meals, First dose (after last modification) on Mon06/17/25 at 1213, Swallow whole. Do NOT crush, chew, or split tablet. Given 06/17/2025 12:27 PM NUCLEAR SUPERVISING OPERATOR 40 mg sertraline tablet 25 mg (Zoloft) 25 mg, oral, Daily, First dose (after last modification) on Mon06/17/25 at 1213 Given 06/17/2025 12:25 PM NUCLEAR SUPERVISING OPERATOR 25 mg documented in this encounter Active and Recently Administered Medications Times are shown in NUCLEAR SUPERVISING OPERATOR. Scheduled Medication Order 06/15/2025 06/16/2025 06/17/2025 apixaban tablet 5 mg (Eliquis) 5 mg, oral, 2 times daily, First dose (after last modification) on Mon06/17/25 at 1213 1224 (Given - Provid er: Marietta Weaver, R.N.) baclofen tablet 10 mg (LioresaL) 10 mg, oral, 2 times daily, First dose (after last modification) on Mon06/17/25 at 1213 1225 (Given - Provid er: Marietta Weaver, R.N.) furosemide tablet 40 mg (Lasix) 40 mg, oral, Every morning, First dose (after last modification) on Mon06/17/25 at 1213 1229 (Given - Provid er: Marietta Weaver, R.N.) metoprolol succinate 24 hr tablet 100 mg (Toprol XL) 100 mg, oral, Daily, First dose (after last modification) on Mon06/17/25 at 1213, Do NOT crush or chew. Tablet may be split on score if needed. 1228 (Given - Provid er: Marietta Weaver, R.N.) pantoprazole DR tablet 40 mg (Protonix) 40 mg, oral, 2 times daily before morning and evening meals, First dose (after last modification) on Mon06/17/25 at 1213, Swallow whole. Do NOT crush, chew, or split tablet. 1227 (Given - Provid er: Marietta Weaver, R.N.) sertraline tablet 25 mg (Zoloft) 25 mg, oral, Daily, First dose (after last modification) on Mon06/17/25 at 1213 1225 (Given - Provid er: Marietta Weaver, R.N.) PRN Medication Order 06/15/2025 06/16/2025 06/17/2025 iohexoL 350 mg iodine/mL solution (Omnipaque) (COMPLETED) As needed, Starting on Mon06/17/25 at 0959, Intra-Op 0959 (Given - Provid er: Rosenda Pedroza APRN, C.N.P., M.S.N.) lidocaine-sodium bicarbonate (buffered) 0.9%-0.84% injection (COMPLETED) infiltration, As needed, Starting on Mon06/17/25 at 0952, Intra-Op 0952 (Given - Provid er: Rosenda Pedroza APRN, C.N.P., M.S.N.) documented in this encounter Additional Health Concerns Active Problems Noted Date Diagnosed Date Autogenerated Problem 06/13/2025 Assessment Noted Time PHQ-9 Depression Total Score: 10 018 11:00 AM CDT documented as of this encounter Care Teams Pathology Assistant Relationship Specialty Start Date End Date Jeff Reyes M.D. [address] [place] [phone] PCP - General 03/14/24 documented as of this encounter
[2025-06-18 13:57] LABS: Hematocrit* 35.9 % (37.0-53.0); Hemoglobin* 10.6 gm/dL (13.5-17.5); Immature Granulocytes Pct Auto 0.2 %; Lymphocytes Absolute Auto 1.00 K/uL (0.90-2.90); Mean Corpuscular HGB Conc 30 gm/dL (32-36); Mean Corpuscular Hemoglobin 23 pg (26-34); Mean Corpuscular Volume 79 fL (80-100); RDW Coefficient of Variation % 17.7 % (11.5-15.5); Red Blood Count* 4.55 m/uL (4.30-5.90); White Blood Count* 4.05 K/uL (4.50-11.00)
[2025-06-18 14:04] LABS: Immature Granulocytes Abs Auto 0.00 K/uL (0.00-0.30); Slide Review Reflex No
[2025-06-18 14:21] LABS: Chloride* 99 mmol/L (96-114)
[2025-06-18 14:22] LABS: Albumin* 3.3 g/dL (3.3-5.0); Potassium* 3.6 mmol/L (3.6-5.1); Sodium* 137 mmol/L (135-149)
[2025-06-18 14:24] LABS: Alanine Aminotransferase* 27 U/L (4-50); Anion Gap 11 mEq/L (7-15); Aspartate Amino Transferase* 26 U/L (12-35); Blood Urea Nitrogen* 16 mg/dL (7-30); Carbon Dioxide* 27 mmol/L (20-32); Creatinine* 0.8 mg/dL (0.5-1.5); Estimated Glomerular Filt Rate 92 ml/min
[2025-06-18 14:25] LABS: Alkaline Phosphatase* 151 U/L (40-150); Bilirubin Total* 0.5 mg/dL (0.1-1.5); Calcium* 8.4 mg/dL (8.4-10.6); Glucose* 213 mg/dL (60-115); Total Protein* 6.1 g/dL (6.0-8.3)
--- OUTSIDE RECORDS SUMMARY | 2025-06-19 00:12 | XMS_ITS | Clinical Summary ---
Author Organization [facility] Address [facility] [place] [address] Care Team Providers Care Manager Furniture Name Role Phone Birdie Taveras RN Unavailable [phone] Karrie Singer RN Unavailable [phone] Bijan Crawford MD Primary Care Provider [...] per actuation) nasal solution (FLONASE) Inhale 1 Mathis in both nostrils two times daily. 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 06/29/2018 [...] Encounters Date Type Department Care Team Description 06/06/2025 Lab Requisition [facility] [phone] Carmenza Quiroz NP 06/02/2025 10:30 AM [facility] Office Visit [facility] [address] [place] [address] Markel Schultz MD Sleep Consult 06/02/2025 Travel 05/30/2025 Lab Requisition [facility] [phone] Carmenza Quiroz, KEY ACCOUNT EXECUTIVE 05/26/2025 Lab Requisition [facility] [phone] Carmenza Quiroz, KEY ACCOUNT EXECUTIVE 05/16/2025 Lab Requisition [facility] [phone] Carmenza Quiroz, KEY ACCOUNT EXECUTIVE 05/02/2025 Lab Requisition [facility] [phone] Carmenza Quiroz R, KEY ACCOUNT EXECUTIVE 04/29/2025 Lab Requisition [facility] [address] [place] [address] Carmenza Quiroz, KEY ACCOUNT EXECUTIVE 04/29/2025 Lab Requisition [facility] [phone] Carmenza Quiroz, KEY ACCOUNT EXECUTIVE 04/21/2025 Lab Requisition [facility] [phone] Carmenza Quiroz, KEY ACCOUNT EXECUTIVE 04/15/2025 Lab Requisition [facility] [address] [place] [address] Carmenza Quiroz, KEY ACCOUNT EXECUTIVE 04/11/2025 Travel 04/09/2025 1:18 AM CDT - 04/12/2025 12:43 PM CDT Hospital Encounter [facility] [address] [place] [address] [facility] [facility] Hospitalists [facility], MD Claudio López, Twyla Bojorquez MD Allergic rhinitis due to other allergic trigger, unspecified seasonality (Primary Dx); Chronic ulcer of sacral region, unspecified ulcer stage (HC); Coronary artery disease, unspecified vessel or lesion type, unspecified whether angina present, unspecified whether [place] or transplanted heart Discharge Disposition: [facility] 04/07/2025 Lab Requisition [facility] [phone] Bijan Crawford MD 04/01/2025 Lab Requisition [facility] [address] [place] [address] Carmenza Quiroz NP 03/19/2025 Lab Requisition [facility] [phone] Carmenza Quiroz NP from Last 3 Months Immunizations Immunization Administration Dates Next Due COVID-19 vaccine ([employer] 30mcg/0.3mL) 12YO+ BIVALENT PF, MDV 05/17/2022 [...] Comments Blood Pressure 129/71 06/02/2025 10:06 AM [facility] Pulse 69 06/02/2025 10:06 AM [facility] Temperature 36.3 C (97.4 F) 04/12/2025 8:42 AM CDT Respiratory Rate 18 04/12/2025 8:42 AM CDT Oxygen Saturation 94% 06/02/2025 10:06 AM [facility] Inhaled Oxygen Concentration - - Weight 76.3 kg (168 lb 3.2 oz) 04/11/2025 6:03 A M CDT Height 182.9 cm (6') 06/02/2025 10:06 AM [facility] Body Mass Index 22.81 02/06/2025 12:00 PM CDT Plan of Treatment Upcoming Encounters Date Type Department Care Team (Late st Contact Info) Description 07/14/2025 11:15 AM [facility] Appointment [facility] [address] [place] [address] Health Maintenance Due Date Last Done Comments Depression screening for age 12+ 1962 BMI (ht and wt on same day) for age 18+ 01/04/1968 Hepatitis C screening for age 18-79 01/04/1968 Colonoscopy through age 75 1995 Lipids for age 45-75 1995 Medicare Wellness for age 65+ 2015 Influenza Vaccine (#1) 2025 , 05/08/2003, 05/23/2002 COVID-19 vaccine series ( season) 2025 05/18/2025, 12/04/2024, 05/17/2024, Additional history exists Tetanus booster 04/08/2029 04/08/2019, 07/25, 08/16/1999 Zoster [...] Diagnosis Comments CBC WITH AUTO DIFFERENTIAL Routine 06/10/2025 7:31 AM [facility] Anemia, unspecified Type 2 diabetes mellitus without complications (HC) COMP METABOLIC PANEL Routine 06/10/2025 7:31 AM [facility] Anemia, unspecified Type 2 diabetes mellitus without complications (HC) CBC WITH AUTO DIFFERENTIAL Routine 06/10/2025 7:31 AM [facility] Anemia, unspecified Type 2 diabetes mellitus without complications (HC) CBC WITH AUTO DIFFERENTIAL Routine 06/03/2025 7:52 AM [facility] Osteomyelitis, unspecified (HC) COMP METABOLIC PANEL Routine 06/03/2025 7:52 AM [facility] Osteomyelitis, unspecified (HC) CBC WITH AUTO DIFFERENTIAL Routine 06/03/2025 7:52 AM [facility] Osteomyelitis, unspecified (HC) RED CELL MORPHOLOGY Routine 05/27/2025 7 :41 AM [facility] Osteomyelitis, unspecified (HC) PLATELET ESTIMATE Routine 05/27/2025 7:4 1 AM [facility] Osteomyelitis, unspecified (HC) MANUAL DIFFERENTIAL Routine 05/27/2025 7 :41 AM [facility] Osteomyelitis, unspecified (HC) CBC WITH AUTO DIFFERENTIAL Routine 05/27/2025 7:41 AM [facility] Osteomyelitis, unspecified (HC) BASIC METABOLIC PANEL Routine 05/27/2025 7:41 AM [facility] Osteomyelitis, unspecified (HC) CBC WITH AUTO DIFFERENTIAL Routine 05/27/2025 7:41 AM [facility] Osteomyelitis, unspecified (HC) CBC WITH AUTO DIFFERENTIAL [...] (HC) Elevated white blood cell count, unspecified from Last 3 Months Results * (ABNORMAL) CBC WITH AUTO DIFFERENTIAL (06/10/2025 7:31 AM [facility]) Only the most recent of11 resultswithin the time period is included. WHITE BLOOD COUNT 7.1 4.5 - 11.0 thou/cu mm 06/10/2025 8:47 AM [facility] RED BLOOD COUNT 4.36 4.30 - 5.90 mil/cu mm 06/10/2025 8:47 AM [facility] PRE[facility]ARY [facility] HEMOGLOBIN 9.9(L) 13.5 - 17.5 g/dL 06/10/2025 8:47 AM [facility] HEMATOCRIT 35.3(L) 37.0 - 53.0 % 06/10/2025 8:47 AM [facility] MCV 81 80 - 100 fL 06/10/2025 8:47 AM [facility] MCH 22.7(L) 26.0 - 34.0 pg 06/10/2025 8:47 AM [facility] MCHC 28.0(L) 32.0 - 36.0 g/dL 06/10/2025 8:47 AM [facility] RDW 18.1(H) 11.5 - 15.5 % 06/10/2025 8:47 AM [facility] PLATELET COUNT 160 140 - 440 thou/cu mm 06/10/2025 8:47 AM [facility] MPV 9.8 6.5 - 11.0 fL 06/10/2025 8:47 AM [facility] % NEUT 73.9 % 06/10/2025 8:47 AM [facility] % LYMPH 17.4 % 06/10/2025 8:47 AM [facility] % MONO 5.1 % 06/10/2025 8:47 AM [facility] % EOS 3.5 % 06/10/2025 8:47 AM [facility] % BASO 0.1 % 06/10/2025 8:47 AM [facility] ABSOLUTE NEUTROPHILS 5.2 1.7 - 7.0 thou/cu mm 06/10/2025 8:47 AM [facility] ABSOLUTE LYMPHOCYTES 1.2 0.9 - 2.9 thou/cu mm 06/10/2025 8:47 AM [facility] ABSOLUTE MONOCYTES 0.4 <0.9 thou/cu mm 06/10/2025 8:47 AM [facility] ABSOLUTE EOSINOPHILS 0.3 <0.5 thou/cu mm 06/10/2025 8:47 AM [facility] ABSOLUTE BASOPHILS 0.0 <0.3 thou/cu mm 06/10/2025 8:47 AM [facility] Blood BLOOD SPECIMEN / Unknown Butterfly / Unknown 06/10/2025 7:31 AM [facility] 06/10/2025 8:26 AM [facility] us Carmenza Quiroz KEY ACCOUNT EXECUTIVE HEMATOLOGY Final Resul t [facility] [address] [place] [address] * (ABNORMAL) COMP METABOLIC PANEL (06/10/2025 7:31 AM [facility]) Only the most recent of2 resultswithin the time period is included. SODIUM 141 136 - 145 mmol/L 06/10/2025 8:48 AM [facility] POTASSIUM 4.0 3.5 - 5.1 mmol/L 06/10/2025 8:48 AM [facility] CHLORIDE 109(H) 98 - 107 mmol/L 06/10/2025 8:48 AM [facility] CO2,TOTAL 24 22 - 29 mmol/L 06/10/2025 8:48 AM [facility] ANION GAP 8 5 - 18 06/10/2025 8:48 AM [facility] GLUCOSE 171(H) 70 - 99 mg/dL 06/10/2025 8:48 AM [facility] CALCIUM 9.3 8.8 - 10.4 mg/dL 06/10/2025 8:48 AM [facility] Comment: Reference ranges for this test were updated on 05/28/2024 to reflect our healthy population more accurately. Reference range changes are not retroactively applied to results, but previous results using the same methodology can be interpreted in the context of the new reference range. BUN 14 8 - 23 mg/dL 06/10/2025 8:48 AM [facility] CREATININE 0.71 0.70 - 1.20 mg/dL 06/10/2025 8:48 AM [facility] BUN/CREAT RATIO 20 10 - 20 8:48 AM [facility] eGFR >90 >90 mL/min/1. 73m2 06/10/2025 8:48 AM [facility] Comment:As of 2021, eG FR is calculated by the CKD-EPI creatinine equation without race adjustment. eGFR can be influenced by muscle mass, exercise, and diet. The reported eGFR is an estimation only and is only applicable if the renal function is stable. ALBUMIN 3.1(L) 4.0 - 4.9 g/dL 06/10/2025 8:48 AM [facility] PROTEIN,TOTAL 5.8(L) 6.0 - 8.0 g/dL 06/10/2025 8:48 AM [facility] BILIRUBIN,TOTAL 0.3 0.0 - 1.2 mg/dL 06/10/2025 8:48 AM [facility] ALK PHOSPHATASE 320(H) 40 - 129 IU/L 06/10/2025 8:48 AM [facility] ALT (SGPT) 96(H) 10 - 50 IU/L 06/10/2025 8:48 AM [facility] AST (SGOT) 19 10 - 50 IU/L 06/10/2025 8:48 AM [facility] Blood BLOOD SPECIMEN / Unknown Butterfly / Unknown 06/10/2025 7:31 AM [facility] 06/10/2025 8:26 AM [facility] us Carmenza Quiroz NP CHEMISTRY Final Resul t [facility] [address] [place] [address] * (ABNORMAL) RED CELL MORPHOLOGY (05/27/2025 7:41 AM [facility]) Only the most recent of6 resultswithin the time period is included. Pathologist Jan CANELACYTCANDIDO Crenshaw 05/27/2025 11:28 AM [facility] RBC COMMENT Present(A ) RBC morphology appears normal, RBC morphology within normal limits for newborns. 05/27/2025 11:28 AM [facility] Blood BLOOD SPECIMEN / Unknown Butterfly / Unknown 05/27/2025 7:41 AM [facility] 05/27/2025 9:36 AM [facility] Carmenza Quiroz NP HEMATOLOGY Final Resul t [facility] [address] [place] [address] * PLATELET ESTIMATE (05/27/2025 7:41 AM [facility]) Only the most recent of4 resultswithin the time period is included. PLATELET ESTIMATE Adequate Adequate, No estimate 05/27/2025 11:28 AM [facility] Blood BLOOD SPECIMEN / Unknown Butterfly / Unknown 05/27/2025 7:41 AM [facility] 05/27/2025 9:36 AM [facility] Carmenza Quiroz NP HEMATOLOGY Final Resul t Performing Organization Address City/[facility]/ZIP Co de Phone Number [facility] [address] [place] [address] * (ABNORMAL) MANUAL DIFFERENTIAL (05/27/2025 7:41 AM [facility]) Only the most recent of2 resultswithin the time period is included. Pathologist [facility] % NEUTROPHILS 74.0 % 05/27/2025 11:28 AM [facility] % LYMPHOCYTES 18.0 % 05/27/2025 11:28 AM [facility] % MONOCYTES 7.0 % 05/27/2025 11:28 AM [facility] % EOSINOPHILS 1.0 % 05/27/2025 11:28 AM [facility] % BASOPHILS 0.0 % 05/27/2025 11:28 AM [facility] NEUTROPHILS ABSOLUTE 8.8(H) 1.7 - 7.0 thou/cu mm 05/27/2025 11:28 AM [facility] LYMPHOCYTES ABSOLUTE 2.1 0.9 - 2.9 thou/cu mm 05/27/2025 11:28 AM [facility] MONOCYTES ABSOLUTE 0.8 <0.9 thou/cu mm 05/27/2025 11:28 AM [facility] EOSINOPHILS ABSOLUTE 0.1 <0.5 thou/cu mm 05/27/2025 11:28 AM [facility] BASOPHILS ABSOLUTE 0.0 <0.3 thou/cu mm 05/27/2025 11:28 AM [facility] Blood BLOOD SPECIMEN / Unknown Butterfly / Unknown 05/27/2025 7:41 AM [facility] 05/27/2025 9:36 AM [facility] us Carmenza Quiroz KEY ACCOUNT EXECUTIVE HEMATOLOGY Final Resul t [facility] [address] [place] [address] * (ABNORMAL) BASIC METABOLIC PANEL (05/27/2025 7:41 AM [facility]) Only the most recent of10 resultswithin the time period is included. SODIUM 142 136 - 145 mmol/L 05/27/2025 10:22 AM [facility] POTASSIUM 3.9 3.5 - 5.1 mmol/L 05/27/2025 10:22 AM [facility] CHLORIDE 105 98 - 107 mmol/L 05/27/2025 10:22 AM [facility] CO2,TOTAL 24 22 - 29 mmol/L 05/27/2025 10:22 AM [facility] ANION GAP 13 5 - 18 05/27/2025 10:22 AM [facility] GLUCOSE 118(H) 70 - 99 mg/dL 05/27/2025 10:22 AM [facility] CALCIUM 9.4 8.8 - 10.4 mg/dL 05/27/2025 10:22 AM [facility] Comment: Reference ranges for this test were updated on 05/28/2024 to reflect our healthy population more accurately. Reference range changes are not retroactively applied to results, but previous results using the same methodology can be interpreted in the context of the new reference range. BUN 20 8 - 23 mg/dL 05/27/2025 10:22 AM [facility] CREATININE 0.72 0.70 - 1.20 mg/dL 05/27/2025 10:22 AM [facility] BUN/CREAT RATIO 28(H) 10 - 20 10:22 AM [facility] eGFR >90 >90 mL/min/1. 73m2 05/27/2025 10:22 AM [facility] Comment:As of 2021, eG FR is calculated by the CKD-EPI creatinine equation without race adjustment. eGFR can be influenced by muscle mass, exercise, and diet. The reported eGFR is an estimation only and is only applicable if the renal function is stable. Blood BLOOD SPECIMEN / Unknown Butterfly / Unknown 05/27/2025 7:41 AM [facility] 05/27/2025 9:36 AM [facility] us Carmenza Quiroz KEY ACCOUNT EXECUTIVE CHEMISTRY Final Resul t [facility] [address] [place] [address] * (ABNORMAL) HEPATIC FUNCTION PANEL (04/22/2025 7:45 AM CDT) Only the most recent of2 resultswithin the time period is included. ALBUMIN 2.9(L) 4.0 - 4.9 g/dL 04/22/2025 10:25 AM [facility] PROTEIN,TOTAL 6.0 6.0 - 8.0 g/dL 04/22/2025 10:25 AM [facility] BILIRUBIN,TOTAL 0.3 0.0 - 1.2 mg/dL 04/22/2025 10:25 AM [facility] BILIRUBIN,DIRECT 0.1 0.0 - 0.2 mg/dL 04/22/2025 10:25 AM [facility] BILIRUBIN,INDIRE CT 0.2 0.2 - 0.8 mg/dL 04/22/2025 10:25 AM [facility] ALK PHOSPHATASE 226(H) 40 - 129 IU/L 04/22/2025 10:25 AM CDT [facility] ALT (SGPT) 30 10 - 50 IU/L 04/22/2025 10:25 AM CDT [facility] AST (SGOT) 25 10 - 50 IU/L 04/22/2025 10:25 AM CDT [facility] Blood BLOOD SPECIMEN / Unknown Butterfly / Unknown 04/22/2025 7:45 AM CDT 04/22/2025 8:45 AM CDT us Carmenza Quiroz NP CHEMISTRY Final Resul t [facility] [address] [place] [address] * (ABNORMAL) GLUCOSE METER (04/12/2025 12:18 PM CDT) Only the most recent of13 resultswithin the time period is included. GLUCOSE METER 157(H) 65 - 100 mg/dL 04/12/2025 12:20 PM CDT [facility] Blood BLOOD SPECIMEN / Unknown 04/12/2025 12:18 PM CDT 04/12/2025 12:20 PM CDT us Twyla Snyder MD CHEMISTRY Final Result [facility] [address] [place] [address], * (ABNORMAL) CBC no diff AM (04/12/2025 7:25 AM CDT) Only the most recent of3 resultswithin the time period is included. WHITE BLOOD COUNT 9.1 4.5 - 11.0 thou/cu mm 04/12/2025 10:18 AM CDT [facility] RED BLOOD COUNT 3.33(L) 4.30 - 5.90 mil/cu mm 04/12/2025 10:18 AM CDT [facility] HEMOGLOBIN 8.3(L) 13.5 - 17.5 g/dL 04/12/2025 10:18 AM CDT [facility] HEMATOCRIT 28.5(L) 37.0 - 53.0 % 04/12/2025 10:18 AM CDT [facility] MCV 86 80 - 100 fL 04/12/2025 10:18 AM CDT [facility] MCH 24.9(L) 26.0 - 34.0 pg 04/12/2025 10:18 AM CDT [facility] MCHC 29.1(L) 32.0 - 36.0 g/dL 04/12/2025 10:18 AM CDT [facility] RDW 18.1(H) 11.5 - 15.5 % 04/12/2025 10:18 AM CDT [facility] PLATELET COUNT 212 140 - 440 thou/cu mm 04/12/2025 10:18 AM CDT [facility] MPV 9.0 6.5 - 11.0 fL 04/12/2025 10:18 AM CDT [facility] NRBC 0.2 % 04/12/2025 10:18 AM CDT [facility] ABS NRBC 0.0 thou /cu mm 04/12/2025 10:18 AM T [facility] Blood BLOOD SPECIMEN / Unknown Butterfly / Unknown 04/12/2025 7:25 AM CDT 04/12/2025 7:47 AM CDT us Twyla Snyder MD HEMATOLOGY Final Result [facility] [address] [place] [address], * (ABNORMAL) BLOOD GAS,VENOUS (04/12/2025 7:25 AM CDT) Only the most recent of2 resultswithin the time period is included. PH, VENOUS 7.37 7.32 - 7.43 04/12/2025 7:39 AM CDT [facility] PCO2, VENOUS 34(L) 41 - 51 mmHg 04/12/2025 7:39 AM CDT [facility] PO2, VENOUS 69(H) 35 - 40 mmHg 04/12/2025 7:39 AM CDT [facility] HCO3,VENOUS 20(L) 22 - 29 mmol/L 04/12/2025 7:39 AM CDT [facility] BASE EXCESS, VENOUS, POCT -4.8(L) -2.0 - 3.0 04/12/2025 7:39 AM CDT [facility] O2 SATURATION, VENOUS 96(H) 70 - 75 % 04/12/2025 7:39 AM CDT [facility] PATIENT TEMPERATURE 37.0 Degrees C 04/12/2025 7:39 AM CDT [facility] Blood BLOOD SPECIMEN / Unknown Butterfly / Unknown 04/12/2025 7:25 AM CDT 04/12/2025 7:34 AM CDT Twyla Snyder MD CHEMISTRY Final Result Performing Organization Address City/[facility]/ZIP Co de Phone Number [facility] [address] [place] [address], [place] * POTASSIUM (04/11/2025 8:37 PM CDT) Only the most recent of2 resultswithin the time period is included. POTASSIUM 4.2 3.5 - 5.1 mmol/L 04/11/2025 9:05 PM CDT [facility] Blood BLOOD SPECIMEN / Unknown Venipuncture / Unknown 04/11/2025 8:37 PM CDT 04/11/2025 8:49 PM CDT Twyla Snyder MD CHEMISTRY Final Result Performing Organization Address City/[facility]/ZIP Co de Phone Number [facility] [address] [place] [address], [place] * SODIUM (04/11/2025 1:15 PM CDT) Only the most recent of2 resultswithin the time period is included. SODIUM 136 136 - 145 mmol/L 04/11/2025 6:22 PM CDT [facility] Blood BLOOD SPECIMEN / Unknown Butterfly / Unknown 04/11/2025 1:15 PM CDT 04/11/2025 1:23 PM CDT Twyla Snyder MD CHEMISTRY Final Result Performing Organization Address City/[facility] Co de Phone Number [facility] [address] [address], [place] * (ABNORMAL) CREATININE (04/11/2025 1:15 PM CDT) Only the most recent of2 resultswithin the time period is included. eGFR 55(L) >90 mL/min/1.7 3m2 04/11/2025 6:22 PM CDT [facility] Comment:As of 2021, eG FR is calculated by the CKD-EPI creatinine equation without race adjustment. eGFR can be influenced by muscle mass, exercise, and diet. The reported eGFR is an estimation only and is only applicable if the renal function is stable. CREATININE 1.35(H) 0.70 - 1.20 mg/dL 04/11/2025 6:22 PM CDT [facility] Blood BLOOD SPECIMEN / Unknown Butterfly / Unknown 04/11/2025 1:15 PM CDT 04/11/2025 1:23 PM CDT Twyla Snyder MD CHEMISTRY Final Result Performing Organization Address City/[facility]/ZIP Co de Phone Number [facility] [address] [place] [id number], [place] * IR PERCUTANEOUS TUBE CHANGE (04/11/2025 [...] over this wire for a new 14 [place] all purpose drain. The pig tail was [...] was uneventfully exchanged for a new 14 [place] all purpose drain under fluoroscopic guidance. Completion cholangiogram demonstrated new catheter in appropriate position. Impression: 1. Successful fluoroscopically guided exchange of cholecystostomy tube. The cystic duct is patent. Capping trial could be considered. us Twyla Snyder MD IR Final Result * (ABNORMAL) IMMUNOFIXATION ELP, URINE (04/10/2025 6:56 PM CDT) IFIX INTERP,URINE Immunofixation on urine shows no monoclonal protein detected and no free light chains detected. Interpreted and electronically signed by: Bettie Valdez MD 04/15/2025 10:28 AM CDT [facility] PROTEIN QUANT,RAND URINE 21(H) 1 - 14 mg/dL 04/15/2025 10:28 AM CDT [facility] Urine URINE SPECIMEN / Unknown Non-Blood / Unknown 04/10/2025 6:56 PM CDT 04/10/2025 7:03 PM CDT Twyla Snyder MD URINE Final Result [facility] [address] [place] [address], [place] * SCAN CORRESP-LABORATORY RESULTS (04/10/2025 11:55 [...] - 5.31 g/dL 04/11/2025 4:29 PM CDT [facility] ELP,ALPHA 1 0.57(H) 0.19 - 0.42 g/dL 04/11/2025 4:29 PM CDT [facility] ELP,ALPHA 2 0.92 0.44 - 1.03 g/dL 04/11/2025 4:29 PM CDT [facility] ELP,GAMMA 0.48(L) 0.59 - 1.46 g/dL 04/11/2025 4:29 PM CDT [facility] ELP,BETA 0.83 0.52 - 1.05 g/dL 04/11/2025 4:29 PM CDT [facility] MONOCLONAL PEAK 1 0.04 <=0.00 g/dL 04/11/2025 4:29 PM CDT [facility] ELP INTERP,SERUM Trace monoclonal protein detected in gamma region, confirmed by immunofixation. Interpreted and electronically signed by: Bettie Valdez MD 04/11/2025 4:29 PM CDT [facility] PROTEIN,TOTAL 4.8(L) 6.0 - 8.0 g/dL 04/11/2025 4:29 PM CDT [facility] Blood BLOOD SPECIMEN / Unknown Extra Tube / Unknown 04/09/2025 6:45 AM CDT 04/09/2025 7:09 AM CDT Twyla Snyder MD CHEMISTRY Final Result [facility] [address] [address], [place] * EXTRA TUBE GOLD/SST (04/09/2025 6:45 AM CDT) Blood BLOOD SPECIMEN / Unknown Extra Tube / Unknown 04/09/2025 6:45 AM CDT 04/09/2025 7:09 AM CDT Twyla Silva RN LABORATORY Final Result [facility] [address] [address], [place] * (ABNORMAL) IMMUNOFIXATION,SERUM (04/09/2025 6:45 AM CDT) IGG 422.26(L) 610.30 - 1,616.00 mg/dL 04/11/2025 4:29 PM CDT [facility] IGA 299.92 84.50 - 499.00 mg/dL 04/11/2025 4:29 PM CDT [facility] IGM 42.52 35.00 - 242.00 mg/dL 04/11/2025 4:29 PM CDT [facility] IFIX INTERP,SERUM Immunofixation on serum shows [...] Bettie Valdez MD 04/11/2025 4:29 PM CDT [facility] Blood BLOOD SPECIMEN / Unknown Extra Tube / Unknown 04/09/2025 6:45 AM CDT 04/09/2025 7:09 AM CDT us Twyla Snyder MD CHEMISTRY Final Result [facility] [address] [place] [address], * (ABNORMAL) IRON PLUS IRON BINDING CAP (04/09/2025 6:45 AM CDT) IRON 20(L) 61 - 157 ug/dL 04/09/2025 1:01 PM CDT [facility] UIBC (UNSATURATED) 129 112 - 347 ug/dL 04/09/2025 1:01 PM CDT [facility] IRON BINDING CAPACITY 149(L) 250 - 400 ug/dL 04/09/2025 1:01 PM CDT [facility] IRON,% SATURATION 13(L) 14 - 50 % 04/09/2025 1:01 PM CDT [facility] Blood BLOOD SPECIMEN / Unknown Venipuncture / Unknown 04/09/2025 6:45 AM CDT 04/09/2025 7:06 AM CDT Twyla Snyder MD CHEMISTRY Final Result Performing Organization Address City/[facility]/ZIP Co de Phone Number [facility] [address] [address], [place] * MAGNESIUM (04/09/2025 6:45 AM CDT) MAGNESIUM 1.7 1.6 - 2.4 mg/dL 04/09/2025 7:34 AM CDT [facility] Blood BLOOD SPECIMEN / Unknown Venipuncture / Unknown 04/09/2025 6:45 AM CDT 04/09/2025 7:06 AM CDT Elder Roach MD CHEMISTRY Final Res ult Performing Organization Address City/[facility]/ZIP Co de Phone Number [facility] [address] [address], [place] * (ABNORMAL) FERRITIN (04/09/2025 6:45 AM CDT) FERRITIN 658.0(H) 30.0 - 400.0 ng/mL 04/09/2025 1:01 PM CDT [facility] Blood BLOOD SPECIMEN / Unknown Venipuncture / Unknown 04/09/2025 6:45 AM CDT 04/09/2025 7:06 AM CDT Twyla Snyder MD CHEMISTRY Final Result Performing Organization Address City/[facility]/ZIP Co de Phone Number [facility] [address] [place] [address], [place] * US RENAL AND BLADDER COMPLETE [...] For Patients: As a result of the Cures Act, medical imaging exams and procedure [...] For Patients: As a result of the Cures Act, medical imagingexams and procedure reports [...] URINE 48 mmol/L 04/09/2025 3:33 AM CDT [facility] SODIUM 137 mmol/L 04/09/2025 3:33 AM CDT [facility] CREATININE RAW URINE 87 mg/dL 04/09/2025 3:33 AM CDT [facility] CREATININE 2.33 mg/dL 04/09/2025 3:33 AM CDT [facility] FRACT EX OF SODIUM 0.9 % 04/09/2025 3:33 AM CDT [facility] Urine URINE SPECIMEN / Unknown Non-Blood / Unknown 04/09/2025 2:55 AM CDT 04/09/2025 3:11 AM CDT Narrative [facility] - 04/09/2025 3:33 AM CDT Suggests Pre-Renal Azotemia us Elder Roach MD URINE Final Res ult [facility] [address] [place] [address], * (ABNORMAL) URINALYSIS MICROSCOPIC (04/09/2025 2:55 AM CDT) RBC 3-5(A) 0-2, None Seen /HPF 04/09/2025 3:20 AM CDT [facility] WBC 51-100(A) 0-2, 3-5, None Seen /HPF 04/09/2025 3:20 AM CDT [facility] BACTERIA None Seen None Seen, Rare, Few Bacteria/ HPF 04/09/2025 3:20 AM CDT [facility] EPITHELIAL CELLS None Seen None Seen, Few Epi/HPF 04/09/2025 3:20 AM CDT [facility] HYALINE CASTS 3-5 0-2, 3-5 /LPF 04/09/2025 3:20 AM CDT [facility] Urine URINE SPECIMEN / Unknown Non-Blood / Unknown 04/09/2025 2:55 AM CDT 04/09/2025 3:11 AM CDT us Elder Roach MD URINE Final Res ult [facility] [address] [place] [address], * (ABNORMAL) PROTEIN/CREAT RATIO,URINE (04/09/2025 2:55 AM CDT) PROTEIN QUANT,RAND URINE 23(H) 1 - 14 mg/dL 04/09/2025 3:33 AM CDT [facility] CREAT,RANDOM URINE 87.8 39.0 - 259.0 mg/dL 04/09/2025 3:33 AM CDT [facility] PROT/CREAT RATIO,UR 0.3(H) <0.2 04/09/2025 3:33 AM CDT [facility] Urine URINE SPECIMEN / Unknown Non-Blood / Unknown 04/09/2025 2:55 AM CDT 04/09/2025 3:11 AM CDT us Elder Roach MD URINE Final Res ult [facility] [address] [place] [address], [place] * (ABNORMAL) UA W/ SEDIMENT EXAM REFLEXED PER CRITERIA (04/09/2025 2:55 AM CDT) COLOR Yellow Yellow Color 04/09/2025 3:20 AM CDT [facility] CLARITY Clear Clear Clarity 04/09/2025 3:20 AM CDT [facility] SPECIFIC GRAVITY,URINE 1.010 1.010, 1.015, 1.020, 1.025 04/09/2025 3:20 AM CDT [facility] PH,URINE 6.0 6.0, 7.0, 8.0, 5.5, 6.5, 7.5, 8.5 04/09/2025 3:20 AM CDT [facility] UROBILINOGEN, QUALITATIVE Normal Normal EU/dl 04/09/2025 3:20 AM CDT [facility] PROTEIN, URINE Trace(A) Negative mg/dL 04/09/2025 3:20 AM CDT [facility] GLUCOSE, URINE Negative Negative mg/dL 04/09/2025 3:20 AM CDT [facility] KETONES,URINE Negative Negative mg/dL 04/09/2025 3:20 AM CDT [facility] BILIRUBIN,URI NE Negative Negative 04/09/2025 3:20 AM CDT [facility] OCCULT BLOOD,URINE Small(A) Negative 04/09/2025 3:20 AM CDT [facility] NITRITE Negative Negative 04/09/2025 3:20 AM CDT [facility] LEUKOCYTE ESTERASE Large(A) Negative 04/09/2025 3:20 AM CDT [facility] Urine URINE SPECIMEN / Unknown Non-Blood / Unknown 04/09/2025 2:55 AM CDT 04/09/2025 3:11 AM CDT Elder Roach MD URINE Final Res ult [facility] [address] [address], [place] * (ABNORMAL) FRACT EXCR OF SODIUM, SERUM (04/09/2025 2:04 AM CDT) SODIUM 137 136 - 145 mmol/L 04/09/2025 3:33 AM CDT [facility] CREATININE 2.33(H) 0.70 - 1.20 mg/dL 04/09/2025 3:33 AM CDT [facility] eGFR 28(L) >90 mL/min/1.7 3m2 04/09/2025 3:33 AM CDT [facility] Comment: As of 2021, eGFR is [...] Elder Roach MD CHEMISTRY Final Res ult [facility] [address] [address], [place] * LACTATE VENOUS (04/09/2025 2:04 AM CDT) LACTATE,VENOUS 1.0 0.5 - 2.0 mmol/L 04/09/2025 2:38 AM CDT [facility] Blood BLOOD SPECIMEN / Unknown Venipuncture / Unknown 04/09/2025 2:04 AM CDT 04/09/2025 2:10 AM CDT us Elder Roach MD CHEMISTRY Final Res ult [facility] [address] [place] [address], * PROCALCITONIN (04/09/2025 2:04 AM CDT) PROCALCITONIN 0.40 ng/ml 04/09/2025 2:42 AM CDT [facility] Blood BLOOD SPECIMEN / Unknown Venipuncture / Unknown 04/09/2025 2:04 AM CDT 04/09/2025 2:10 AM CDT Narrative [facility] - 04/09/2025 2:42 AM CDT Procalcitonin [...] OUTS Final Res ult Performing Organization Address City/[facility]/ZIP Co de Phone Number [facility] [address] [place] [address], * (ABNORMAL) C-REACTIVE PROTEIN (03/25/2025 7:13 AM CDT) C-REACTIVE PROTEIN 9.6(H) <0.5 mg/dL 03/25/2025 8:47 AM CDT [facility] Blood BLOOD SPECIMEN / Unknown Butterfly / Unknown 03/25/2025 7:13 AM CDT 03/25/2025 8:21 AM CDT us Carmenza Quiroz KEY ACCOUNT EXECUTIVE CHEMISTRY Final Resul t Performing Organization Address [facility] Co de Phone Number [facility] [address] [place] [address] from Last 3 Months Additional [...] 12 months since positive culture): resides in acute/ocean transportation intermediary care, receiving hemodialysis, has chronic open wounds/skin damage, has long-term percutaneous indwelling medical devices Exclusions for nares collection (if <12 months since positive culture) include all of the previous exclusions plus patients on antibiotics 7 days prior to collection 04/09/2025 04/09/2025 Insurance [employer] [facility] Endurance Lending Network [facility] Advance Directives Documents on File Type Date Recorded Patient Vice Investigator Expl anation POL 01/26/2023 * DNR (Latest Code Status on [...] Preferences, Provider to review later Care Teams Manager Furniture Relationship Specialty Start Date End Date Bijan Crawford MD [address] [facility] [address] [place] [address] PCP - General Family Practice 04/09/25 Birdie Taveras, RN [address] [facility] [address] [place] [address] Director Of Blood - [facility] Registered Nurse 07/24/23 Karrie Singer RN [address] [facility] [address] [place] [address] Director Of Blood - [facility] Registered Nurse 07/24/23
--- OUTSIDE RECORDS SUMMARY | 2025-06-19 00:13 | XMS_ITS | Encounter Summary ---
Author Organization [facility] Address [address] [place] [address] Care Team Providers Care [place] Attorney Name Role Phone Jeff Reyes M.D. Primary Care Provider [phone] Reason for Visit * Reason Onset Date Comments Pre-visit Intake 06/03/2025 Encounter Details Date Type Department Care Team (Latest Contact Info) Description 06/03/2025 Clinical Communication Department of General Surgery in [place], [place] [address] [place] [address] Roland Benson D.O. [address] [place] [phone] Pre-visit Intake Social History Tobacco Use Types [...] daily living? Patient unable to answer 02/27/2025 [facility] Utilities Answer Date Recorded In the past 12 months has [employer], gas, oil, or water [employer] threatened to shut off services in your [...] Sex Assigned at Male 06/26/2018 4:20 PM CARPENTER MAINTENANCE Legal Sex Male 3:33 AM CARPENTER MAINTENANCE Gender Identity Not on file Sexual Orientation Not on file documented as of this encounter Miscellaneous Notes * Telephone Encounter - [facility] Salinas R.[facility]., [facility] - 06/03/2025 9:37 AM CARPENTER MAINTENANCE Bekah from senior living calls today for update on surgery date. [...] the sleep medicine department for study at [place] if they want to pursue that study within out system. Bekah would like a call at her number [phone] when surgery date is available. ENTER MAINTENANCE documented in this encounter Plan of Treatment Upcoming Encounters Date Type Department Care Team (Latest Contact Info) Description 07/14/2025 11:15 AM CARPENTER MAINTENANCE Appointment Department of Radiology in [place], [place] [address] [place] [phone] Pablo Vo M.D. [address] [place] [address] 07/22/2025 4:20 PM CARPENTER MAINTENANCE Office Visit Department of Oncology in [place], [place] [address] [address] Pablo Vo M.D. [address] [place] [address] 08/06/2025 9:44 AM CARPENTER MAINTENANCE Hospital Encounter Outpatient Procedure Center in [address] [address] Roland Benson D.O. [address] [place] [phone] 08/06/2025 9:44 AM CARPENTER MAINTENANCE - 08/06/2025 11:42 AM CARPENTER MAINTENANCE Surgery Outpatient Procedure Center in [address] [address] Roland Benson D.O. [address] [place] [address] ROBOTIC-ASSISTED MULTIPORT CHOLECYSTECTOMY Scheduled Procedures Name Priority Associated Diagnoses Date/Ti oh ROBOTIC-ASSISTED MULTIPORT CHOLECYSTECTOMY Cholecystitis Chronic 08/06/2025 9:44 AM CARPENTER MAINTENANCE documented as of this encounter Visit Diagnoses Not on filedocumented in this encounter Additional Health Concerns Assessment Noted Time PHQ-9 Depression Total Score: 10 018 11:00 AM CDT documented as of this encounter Care Teams [place] Attorney Relationship Specialty Start Date End Date Jeff Reyes M.D. [address] [place] [phone] PCP - General 03/14/24 documented as of this encounter
--- OUTSIDE RECORDS SUMMARY | 2025-06-19 00:13 | XMS_ITS | Encounter Summary ---
Author Organization [facility] Address [address] [place] [address] Care Team Providers Care Tuber Operator Name Role Phone Jeff Reyes M.D. Primary Care Provider [phone] Reason for Referral * Outpatient (Routine) - Authorized Specialty Diagnoses / Procedures Referred By Contac t Referred To Contact Jeff Reyes M.D. [address] [place] [address] Phone: tel: fax: [facility] Referral ID Status Reason Start Date Expiration Date V isits Requested Visits Authorized [id number] Authorized 05/27/2025 11/26/2026 1 1 Scheduling Instructions Nurse AWV Do not schedule prior to due date to ensure insurance coverage Visit: Medicare Annual Wellness due on 02/07/2025. SEWER Encounter Details Date Type Department Care Team (Late st Contact Info) Description 05/27/2025 Orders Only [facility] Jeff Reyes M.D. [address] [place] [address] Social History Tobacco Use Types [...] unable to answer 02/27/[address] [facility] Utilities Answer Date Recorded In the past 12 months has [facility] [employer], gas, oil, or water [employer] threatened to shut off services in your [...] Sex Assigned at Male 06/26/2018 4:20 PM LOOP SEWER Legal Sex Male 3:33 AM LOOP SEWER Gender Identity Not on file Sexual Orientation Not on file documented as of this encounter Plan of Treatment Upcoming Encounters Date Type Department Care Team (Latest Contact Info) Description 07/14/2025 11:15 AM LOOP SEWER Appointment Department of Radiology in [place], [place] [address] [place] [address] Pablo Vo M.D. [address] [place] [phone] 07/22/2025 4:20 PM LOOP SEWER Office Visit Department of Oncology in [place], [place] [address] [place] [address] Pablo Vo M.D. [address] [place] [phone] 08/06/2025 9:44 AM LOOP SEWER Hospital Encounter Outpatient Procedure Center in [address] [address] Roland Benson DAmparoOAmparo [address] [place] [phone] 08/06/2025 9:44 AM LOOP SEWER - 08/06/2025 11:42 AM LOOP SEWER Surgery Outpatient Procedure Center in [address] [address] Roland Benson DAmparoO. [address] [place] [phone] ROBOTIC-ASSISTED MULTIPORT CHOLECYSTECTOMY Scheduled Procedures Name Priority Associated Diagnoses Date/Ti wi ROBOTIC-ASSISTED MULTIPORT CHOLECYSTECTOMY Cholecystitis Chronic 08/06/2025 9:44 AM LOOP SEWER Scheduled Referrals Name Type Priority Associated Diagnoses Orde r Schedule Primary Care nurse visit (clinic) - [facility] Region; Medicare Annual Wellness Outpatient Referral Routine Expected: 06/24/2025, Expires: 11/13/2025 documented as of this encounter Visit Diagnoses Not on filedocumented in this encounter Additional Health Concerns Assessment Noted Time PHQ-9 Depression Total Score: 10 018 11:00 AM CDT documented as of this encounter Care Teams Tuber Operator Relationship Specialty Start Date End Date Jeff Reyes M.D. [address] [place] [address] PCP - General 03/14/24 documented as of this encounter
--- OUTSIDE RECORDS SUMMARY | 2025-06-19 00:13 | XMS_ITS | Encounter Summary ---
Author Organization [facility] Address [address] [place] [address] Care Team Providers Care Auto Painter Helper Name Role Phone Jeff Reyes M.D. Primary Care Provider [phone] Encounter Details Date Type Department Care Team (Late st Contact Info) Description 06/04/2025 Clinical Communication Department of Radiology in [place], [place] [address] [place] [phone] Anuel Nunn M.D. [address] [place] [phone] Social History Tobacco Use Types Packs/Day Years [...] daily living? Patient unable to answer 02/27/2025 [facility] Utilities Answer Date Recorded In [...] Sex Assigned at Male 06/26/2018 4:20 PM CNC SERVICE TECHNICIAN Legal Sex Male 3:33 AM CNC SERVICE TECHNICIAN Gender Identity Not on file Sexual Orientation Not on file documented as of this encounter Miscellaneous Notes * Telephone Encounter - Mary Ortega RAmparoN. - 06/04/2025 2:55 PM CNC SERVICE TECHNICIAN Reviewing chart, tube exchange scheduled 06/05/25. SERVICE TECHNICIAN * Telephone Encounter - Olinda Byers M.S.N., R.N. - 06/04/2025 10:51 AM CNC SERVICE TECHNICIAN caregiver Bekah nurse information management manager called in with concerns of patients [...] scheduled until 07/07. She is wondering if gibsonhould come in sooner, and reports they can get him here tomorrow if needed. Her cell phone number is [phone]. She said a message can be left with the date and time and she will align family to transport. SERVICE TECHNICIAN documented in this encounter Plan of Treatment Upcoming Encounters Date Type Department Care Team (Latest Contact Info) Description 07/14/2025 11:15 AM CNC SERVICE TECHNICIAN Appointment Department of Radiology in [place], [place] [address] [phone] Pablo Vo M.D. [address] [place] [phone] 07/22/2025 4:20 PM CNC SERVICE TECHNICIAN Office Visit Department of Oncology in [place], [place] [address] [phone] Pablo Vo M.D. [address] [place] [address] 08/06/2025 9:44 AM CNC SERVICE TECHNICIAN Hospital Encounter Outpatient Procedure Center in [place], [place] [address] [place] [address] [address] D.O[address] [facility] [place] [address] 08/06/2025 9:44 AM CNC SERVICE TECHNICIAN - 08/06/2025 11:42 AM CNC SERVICE TECHNICIAN Surgery Outpatient Procedure Center in [place], [place] [address] [place] [address] Roland Benson D.O. [address] [place] [address] ROBOTIC-ASSISTED MULTIPORT CHOLECYSTECTOMY Scheduled Procedures Name Priority Associated Diagnoses Date/Ti mt ROBOTIC-ASSISTED MULTIPORT CHOLECYSTECTOMY Cholecystitis Chronic 08/06/2025 9:44 AM CNC SERVICE TECHNICIAN documented as of this encounter Visit Diagnoses Not on filedocumented in this encounter Additional Health Concerns Assessment Noted Time PHQ-9 Depression Total Score: 10 018 11:00 AM CDT documented as of this encounter Care Teams Auto Painter Helper Relationship Specialty Start Date End Date Jeff Reyes M.D. [address] [address] PCP - General 03/14/24 documented as of this encounter
--- OUTSIDE RECORDS SUMMARY | 2025-06-19 00:13 | XMS_ITS | Encounter Summary ---
Author Organization [facility] Address [address] [place] [address]. [place] [address] Care Team Providers Care Engineer Third Assistant Name Role Phone Bijan Crawford Primary Care Provider [phone] Rl Evans MD Unavailable [phone] Encounter Details Date Type Department Care Team (Late st Contact Info) Description 05/27/2025 Telephone [facility]ious Disease [facility] [place] [address] [place] [address] Rl Evans MD [address] [facility] [address] [place] [address] Social History Tobacco Use Types Packs/Day Years Used Date Smoking Tobacco: Former Cigarettes Q uit: 07/24/1971 Smokeless Tobacco: Never Sex and Gender Information Value Date Recorded Sex Assigned at Not on file Legal Sex Male 2:17 PM SUPERVISOR INDUSTRIAL [employer]S EDUCATION Gender Identity Not on file Sexual Orientation Not on file documented as of this encounter Miscellaneous Notes * Telephone Encounter - Pedro Muñoz - 05/27/2025 8:17 AM CST Spoke w patient regarding 05/26/25 no show appt w Dr. Evans - Per patient - provider informed that appt was not needed. 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- [employer]IS[employer] documented in this encounter Plan of Treatment Not on file documented as of this encounter Visit Diagnoses Not on filedocumented in this encounter Care Teams Engineer Third Assistant Relationship Specialty Start Date End Date Bijan Crawford [address] [place], [place] [address] PCP - General Family Medicine 01/20/25 Rl Evans MD [address] [place] [address], [facility] [address] [place] [address] Assigned Infectious Disease Provider 03/15/25 documented as of this encounter
--- OUTSIDE RECORDS SUMMARY | 2025-06-19 00:14 | XMS_ITS | Clinical Summary ---
Author Organization [facility] Address [address] [place] [address] Care Team Providers Care Data Analytics Chief Scientist Name Role Phone Jeff Reyes M.D. Primary Care Provider Source Comments Patient records contain information from all sites at [facility]. For routine questions regarding patient records, call [phone] during business hours, M-F 8:00 AM - 5:00 PM Central Time. Record requests for emergency care only can be directed to [phone] at any time.[facility] Allergies Active Allergy Reactions Criticality Noted Date [...] 25 mg by mouth daily. 5 Active Mucus Relief ER 600 mg 12 hr tablet Take 600 mg by mouth 2 (two) times a day. 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 Assessment & Plan (07/04/2018 2:56 PM CATECHIST): Continue I&O catheterization as needed Multiple Sclerosis, Unspecified 06/03/2003 Assessment & Plan (07/04/2018 3:32 PM CATECHIST): -Continue to follow with Neurology for further recommendations Resolved Problems Problem Noted Date Diagnosed Date Resolved Date Sprain Ankle Initial Right 11/08/2022 0 11/09/2022 Obesity Unspecified 03/21/2019 11/10/19 23 Urinary Tract Infection Site Not Specified 07/04/2018 11/09/2022 Overview (07/04/2018): Completed ciprofloxacin 500 mg b.i.d. for an antibiotic course of 14 days (last dose on 06/08/2018) Assessment & Plan (07/04/2018 3:31 PM CATECHIST): -Patient denies any urinary symptoms today on exam. -Continue care cranberry 450 mg daily Failure Renal Acute (Acute Kidney Injury) 05/27/2018 10/19/2022 Non-ST Elevation Myocardial Infarction 05/26/2018 10/23/2019 Assessment & Plan (07/04/2018 10:14 AM CATECHIST): 1. Continue aspirin 81 mg daily 2. [...] Encounters Date Type Department Care Team Description 06/17/2025 8:51 AM CATECHIST - 06/17/2025 2:21 PM CATECHIST Emergency [facility] Department [address] [place] [phone] Shayna Conteh P.A.-C. Cholecystitis (Primary Dx); Encounter For Change Or Removal Of Drains Discharge Disposition: Home or Self Care 06/05/2025 7:09 AM CATECHIST - 06/05/2025 8:59 AM CATECHIST Hospital Encounter Department of Radiology in [place], [place] [address] [place] [address] Anuel Nunn M.D. Rosenda Pedroza, EUSEBIO C.N.P., M.S.N. Cholecystitis Discharge Disposition: Home or Self Care 06/04/2025 Clinical Communication Department of Radiology in [address] [phone] Anuel Nunn M.D. 06/03/2025 Clinical Communication Department of General Surgery in [address] [phone] Roland Benson, Wally Pre-visit Intake 05/28/2025 11:30 AM CATECHIST Nurse Only Department of General Surgery in [address] [phone] [facility] Salinas R.N., [facility] Patient Education (Lap jazmín) 05/28/2025 11:30 AM CATECHIST Comprehensive Visit Department of General Surgery in [address] [phone] Roland Benson, Tramaine.OAmparo Cholecystitis Chronic (Primary Dx) 05/27/2025 Orders Only [facility] PCP [facility] Jeff Sullivan M.D. from Last 3 Months Immunizations Immunization [...] daily living? Patient unable to answer 02/27/2025 [facility] Utilities Answer Date Recorded In [...] Sex Assigned at Male 06/26/2018 4:20 PM CATECHIST Legal Sex Male 3:33 AM CATECHIST Gender Identity Not on file Sexual Orientation Not on file Last Filed Vital Signs Vital Sign Reading Time Taken Comments Blood Pressure 135/61 06/17/2025 2:00 PM CATECHIST Pulse 65 06/17/2025 2:00 PM CATECHIST Temperature 36.6 C (97.9 F) 06/17/2025 8:56 AM CATECHIST Respiratory Rate 20 06/17/2025 1:00 PM CATECHIST Oxygen Saturation 90% 06/17/2025 2:00 PM CATECHIST Inhaled Oxygen Concentration - - Weight 106 kg (232 lb 12.9 oz) 06/17/2025 8:58 A M CATECHIST Height 182.9 cm (6' 0.01) 05/28/2025 11:[address] Body Mass Index 31.57 05/28/2025 11:22 AM CATECHIST Plan of Treatment Upcoming Encounters Date Type Department Care Team (Latest Contact Info) Description 07/14/2025 11:15 AM CATECHIST Appointment Department of Radiology in [place], [place] [address] [phone] Pablo Vo M.D. [address] [place] [phone] 07/22/2025 4:20 PM CATECHIST Office Visit Department of Oncology in [place], [place] [address] [address] Pablo Vo M.D. [address] [place] [phone] 08/06/2025 9:44 AM CATECHIST Hospital Encounter Outpatient Procedure Center in [address] [phone] Roland Benson D.O. [address] [place] [phone] 08/06/2025 9:44 AM CATECHIST - 08/06/2025 11:42 AM CATECHIST Surgery Outpatient Procedure Center in [place], [place] [address] [place] [phone] Roland Benson D.O. [address] [place] [phone] ROBOTIC-ASSISTED MULTIPORT CHOLECYSTECTOMY Scheduled Procedures Name Priority Associated Diagnoses Date/Ti va ROBOTIC-ASSISTED MULTIPORT CHOLECYSTECTOMY Cholecystitis Chronic 08/06/2025 9:44 AM CATECHIST Health Maintenance Due Date Last Done Comments [...] history exists Creatinine Level (Kidney Function Test) 06/10/2026 06/10/2025, 06/03/2025, 05/27/2025, Additional history exists Potassium Level 06/10/2026 06/10/2025, 05/24, 05/27/2025, Additional history exists Sodium Level 06/10/2026 06/10/2025, 05/24, 05/27/2025, Additional history exists Fasting Glucose for Diabetes Screening 06/10/2028 06/10/2025, 06/03/2025, 05/27/2025, Additional history exists DTaP,Tdap,and Td Vaccines (3 - Td or Tdap) 04/08/2029 04/08/2019, 08/21/2009, 08/16/1999 Lipid (Cholesterol) Screening 11/05/2029 11/05/2024, 10/25/2021, 04/06/2020, Additional history exists Zoster Vaccines Completed 03/09/2018, 12/22, 08/21/2009 RSV vaccine - (32-36 weeks) or 50+ years Completed 05/17/2024 Abdominal Aortic Aneurysm (AAA) Screen Discontinued 01/23/2025, 09/15/2024, 09/02/2024, Additional history exists Influenza Vaccine Completed 05/16/2025, , 05/16/2023, Additional history exists Pneumococcal vaccine (50+ years) Completed 05/16/2025, 03/21/2019, 04/21/2015, Additional history exists Fall Risk Screen (Annual) Completed 06/05/2025 IPV Vaccines Aged Out No longer eligi ble based on patient's age to complete this topic Goals Goal Patient Goal Type Associated Problems Recent Progress Patient-Stated? Author Autogenerat ed Goal Care Plan Autogenerated Problem No Lucia Kennedy Medical Devices Implanted Type Area Claims Vice President Device Identifier Shelf Expiration Date Model / Serial / Lot Scrw 24pthrd 8.0x105 - [id number] Implanted:Qty : 1 on 12/15/2022 by Jana Don M.D. at [facility] Hardware e.g. pins/screws/ rods Right: [employer] [id number] / / Scrw Vthrd Fast 7.0x105 - [id number] Implanted:Qty : 2 on 12/15/2022 by Jana Don M.D. at [facility] Hardware e.g. pins/screws/ rods Right: [employer] [id number] / / Washr Flt 1.5x13 - [id number] Implanted:Qty : 4 on 12/15/2022 by Jana Don M.D. at [facility] Hardware e.g. pins/screws/ rods Right: [employer]ur [employer] [id number] / / Procedures Procedure Name Priority Date/Time Associated Diagnosis Comments IR PERCUTANEOUS CHOLECYSTOSTOMY TUBE EXCHANGE RAD - Semiurgent (Fast; most ED patients; some inpatients) 06/17/2025 10:04 AM CATECHIST IR PERCUTANEOUS CHOLECYSTOSTOMY TUBE EXCHANGE RAD - Routine (most inpatients and all outpatients) 06/05/2025 8:33 AM CATECHIST Cholecystitis GLUCOSE POCT, B Routine 02/27/2025 6:54 AM CDT COMPREHENSIVE METABOLIC PANEL, S/P Routine 02/27/2025 6:[address] ABDOMEN PELVIS WITH IV CONTRAST RAD - Semiurgent (Fast; most ED patients; some inpatients) 01/23/2025 7:35 PM CDT LIPID PANEL, S Routine 11/05/2024 9:32 AM CDT Cholecystitis Preoperative Examination Cardiovascular Hyperlipidemia On Treatment Atherosclerotic Heart Disease Of [place] Coronary Artery Without Angina Pectoris from Last 3 Months or Most Recently Relevant to Health Maintenance Results * IR Percutaneous Cholecystostomy Tube Exchange (06/17/2025 10:04 AM CATECHIST) Only the most recent of2 resultswithin the time period is included. Anatomical Region Laterality Modality Abdomen, Vascular Interventi onal RST LOS, Vascular Interventional ARZ LOS, Vascular Interventional FLA LOS N/A X-Ray Angiography Impressions 06/17/2025 10:20 AM CATECHIST Expedited exchange of the 12 [place] cholecystostomy catheter. Narrative 06/17/2025 10:20 AM CATECHIST EXAM: IR PERCUTANEOUS CHOLECYSTOSTOMY TUBE EXCHANGE INDICATION: jazmín tube pulled out sometime overnight, needs replacement [...] medications. Patient education provided by a care store team member. Patient was ready to learn with no apparent learning barriers were identified. Post-procedure care explained; patient expressed understanding of the content. PROCEDURE DETAILS: Sedation: None. Local anesthesia was achieved with lidocaine. Sedation time: NA Estimated Blood Loss: Less than 10 mL. TECHNIQUE: Imaging guidance for catheter exchange: Fluoroscopy with permanent image storage Access side: Right lateral abdomen Catheter: 12 [place] Ruff-Franco catheter Technique: The indwelling 10.2 [place] catheter was completely dislodged. A guidewire and KUMPE catheter were inserted via existing tract and access gained into gallbladder, confirmed with contrast injection. The catheter was then exchanged over the wire for a new 12 [place] Ruff-Franco catheter. Contrast was injected confirming the [...] EXAM: IR PERCUTANEOUS CHOLECYSTOSTOMY TUBE EXCHANGE INDICATION: jazmín tube pulled out sometime overnight, needs replacement [...] Access side: Right lateral abdomen Catheter: 12 [place] Ruff-Franco catheter Technique: The indwelling 10.2 [place] catheter was completely dislodged.A guidewire and KUMPE catheter were inserted via existing tract and accessgained into gallbladder, confirmed with contrast injection. The catheterwas then exchanged over the wire for a new 12 [place] Ruff-Muellercatheter. Contrast was injected confirming the location [...] exchange. IMPRESSION: Expedited exchange of the 12 [place] cholecystostomy catheter. Shayna Conteh P.A.-C. IMG IR PROCEDURES Final Result * CT Abdomen Pelvis with IV Contrast [...] M.D. IMG CT PROCEDURES Final Result * (ABNORMAL) Lipid [...] Li M.D. LAB BLOOD ADD-ON Final Result [facility] [address] [place] [address], [place] [facility] in [place] [address] [place] [address] from Last 3 Months or Most Recently Relevant to Health Maintenance Additional Health Concerns Active Problems Noted Date Diagnosed Date Autogenerated Problem 06/13/2025 Insurance MEDICA Advance Directives For more information, please contact: [phone] Documents on File Type Date Recorded Patient Industrial Recruiter Expl anation Advance Directives 08/08/2024 6:58 AM [...] 5:41 PM 12/15/2022 11:01 AM Care Teams Data Analytics Chief Scientist Relationship Specialty Start Date End Date Jeff Reyes M.D. [address] [place] [phone] PCP - General 03/14/24
--- OUTSIDE RECORDS SUMMARY | 2025-06-19 00:14 | XMS_ITS | Clinical Summary ---
Author Organization [place] [facility] Address [facility] [place] [address] Care Team Providers Care Cardiology Consultant Name Role Phone Bijan Crawford Primary Care Provider [phone] Rl Evans MD Unavailable [phone] Allergies Active Allergy Reactions Criticality Noted Date [...] Type Department Care Team Description 05/27/[address] [facility] [address] [address] Rl Evans MD 04/21/[address] 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 Gender Identity Not on file Sexual Orientation [...] on patient's age to complete this topic Insurance [employer] Advance Directives For more information, please contact: [phone] Documents on File Type Date Recorded 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
--- OUTSIDE RECORDS SUMMARY | 2025-06-19 00:15 | XMS_ITS | Patient Health Record ---
Author Organization [facility] Address [address] [place] [address] Care Team Providers Care Manager Strategic Development Name Role Phone Rubén Paez MD Primary Care Provider Melody Michael [place] Unavailable [phone] Reason For Referral No Information Social History Tobacco Use: Social History Observation Description Date Details (start date - stop date) Former Smoker NA - NA Tobacco Use/Smoking Question Answer Notes Are you a former smoker Section Notes: FAMILY HISTORY: HISTORY OF FAMILY PSYCH: Problems Problem Type SNOMED Code ICD Code Onset Dates Problem Status W/U Status Risk Notes Problem Tinea unguium (900760285) Tinea unguium (B35.1) Active confirmed Problem 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 (372900235) 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 confirmed Problem Nail dystrophy (72784224) 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 Problem Pressure injury of right buttock stage III (disorder) (22617377630983 ) Pressure ulcer of right buttock, stage 3 (L89.313) Active confirmed Problem Pressure injury of right heel stage IV (disorder) (46679976894247 ) Pressure ulcer of right heel, stage 4 (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 [place] [address] [id number] Ren Ramirez Self - patient is the insured 3
--- OUTSIDE RECORDS SUMMARY | 2025-06-19 00:15 | XMS_ITS | Encounter Summary ---
Author Organization [place] Address [address] [facility] [place] [address] Care Team Providers Care Media Buyer Name Role Phone Bijan Crawford Primary Care Provider [phone] Rl Evans MD Unavailable [phone] Reason for Visit * Reason Onset Date Comments conversation 03/10/2025 wantnitza to disc uss patient with Dr Evans Encounter Details Date Type Department Care Team ([facility] Contact Info) Description 03/10/2025 [facility] Infect[facility] Disease Clinic [address] [address] Rl Evans MD [address] [facility] [address] [place] [address] conversation ( wants to discuss patient with Dr Evans) Social History Tobacco Use Types Packs/Day Years Used Date Smoking Tobacco: Former Cigarettes Q uit: 07/24/1971 Smokeless Tobacco: Never Sex and Gender Information Value Date Recorded Sex Assigned at Not on file 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 Please call her on cell phone. Number given. [phone] Action Taken: Message routed to: [facility] ID Travel Screening: Not Applicable Date of Service: documented in this encounter Plan of Treatment Not on file documented as of this encounter Visit Diagnoses Not on filedocumented in this encounter Care Teams Media Buyer Relationship Specialty Start Date End Date Bijan Crawford [address] [place], [place] [address] PCP - General Family Medicine 01/20/25 Rl Evans MD [address] [place] [address], [facility] [address] [place], [place] [phone] Assigned Infectious Disease Provider 03/15/25 documented as of this encounter
== END 2025-06-18 13:37 | disposition home or self-care (01) ==
LOC: NPINS 13:36
PROVIDERS: PCP Family Medicine; Visit Provider Nurse Practitioner Gerontology
DX: M86.9 Osteomyelitis, unspecified (principal)
CPT/HCPCS: 80053; 85025

== ENCOUNTER 2025-06-20 13:00 | Outpatient (RCR) | payer MEDICARE, SELFPAY | END 2025-06-22 23:59 | disposition home or self-care (01) | LOC: WOUND 13:00 | PROVIDERS: PCP Family Medicine; Visit Provider Physician Assistant Surgical | DX: M86.68 Other chronic osteomyelitis, other site (principal); L89.324 Pressure ulcer of left buttock, stage 4; L89.152 Pressure ulcer of sacral region, stage 2; I10 Essential (primary) hypertension; G82.20 Paraplegia, unspecified; G35.D Multiple sclerosis, unspecified; Z99.3 Dependence on wheelchair | CPT/HCPCS: 82962; G0277 ==

== ENCOUNTER 2025-06-25 12:28 | Outpatient (CLI) | payer MEDICARE, SELFPAY | END 2025-06-25 12:29 | disposition home or self-care (01) | LOC: WOUND 12:28 | PROVIDERS: PCP Family Medicine; Visit Provider Surgery | DX: M86.68 Other chronic osteomyelitis, other site (principal); L89.324 Pressure ulcer of left buttock, stage 4; L89.152 Pressure ulcer of sacral region, stage 2; G35.D Multiple sclerosis, unspecified; G82.20 Paraplegia, unspecified; Z99.3 Dependence on wheelchair | CPT/HCPCS: 11042; G0463 ==

== ENCOUNTER 2025-07-02 12:34 | Outpatient (REF) | payer MEDICARE, SELFPAY ==
--- OUTSIDE RECORDS SUMMARY | 2025-05-28 11:30 | XMS_ITS | Encounter Summary ---
Author Organization [facility] Address [address] [place] [address] Care Team Providers Care Tubing Mill Operator Name Role Phone Jeff Reyes M.D. Primary Care Provider [phone] Reason for Visit * ReasonCommentsPatient EducationLap jazmín Encounter Details DateTypeDepartmentCare Team (Latest Contact Info)Hosyerwjzcg21/05/2025 11:30 AM CSTNurse Only Department of General Surgery in [place], [place] [address] [place] [address] Dena Salinas, R.N., [facility] [address] [place] [address] Patient Education (David noyola) Social History Tobacco UseTypesPacks/DayYears UsedDateSmoking Tobacco: OtnwvfVqzfpghaba5Dajr: 1978Passive Smoke Exposure: NeverAlcohol UseStandard Drinks/WeekCommentsNot Currently1 (1 standard drink = 0.6 oz pure alcohol)Humiliation, Afraid, Rape, and Kick questionnaireAnswerDate RecordedWithin the last year, have you been afraid of your partner or ex-partner?Patient unable to dorbiy8302/27/2025Within the last year, have you been humiliated or emotionally abused in other ways by your partner or ex-partner?Patient unable to synxgl7502/27/2025Within the last year, have you been kicked, hit, slapped, or otherwise physically hurt by your partner or ex-partner?Patient unable to qkssyo6202/27/2025Within the last year, have you been raped or forced to have any kind of sexual activity by your part ner or ex-partner?Patient unable to axiiym5602/27/2025Hunger Vital SignAnswerDate RecordedWithin the past 12 months, you worried that your food would run out before you got the money to buymore.Patient unable to plmxpl0002/27/2025Within the past 12 months, the food you bought just didn't last and you didn't have money to get more.Patient unable to uatgqd3302/27/2025PRAPARE - TransportationAnswerDate RecordedIn the past 12 months, has lack of transportation kept you from medical appointments or from getting medications?Patient unable to ftselz8502/27/2025In the past 12 months, has lack of transportation kept you from meetings, work, or from getting things needed for daily living?Patient unable to qopgen1002/27/2025 [facility] UtilitiesAnswerDate RecordedIn the past 12 months has the [employer], gas, oil, or water [employer] threatened to shut off services in your home?Patient unable to bwbduv3002/27/2025Housing StabilityAnswerDate RecordedWhat is your living situation today?Patient unable to vondii9702/27/2025EducationAnswerDate RecordedWhat is the highest level of school you have completed or the highest degree you have received?12th grade10/18/2022Sex and Gender InformationValueDate RecordedSex Assigned at JgplyLoyr12/04/2018 4:20 PM CSTLegal UepRemx0708/25/2016 3:33 AM CSTGender IdentityNot on fileSexual OrientationNot on filedocumented as of this encounter Progress Notes * Dena Salinas R.N., CBCN - 05/28/2025 11:30 AM CST Education Documentation Treating Constipation Caused By Pain Medications [id number], taught by Dena Salinas R.N., CBCN at 06/02/2025 10:17 AM. Learner: Family, Patient Readiness: Acceptance Method: Explanation, Handout Response: Able to Teach Back Comment: hold eliquis 3 days prior to surgery Acute Pain and the Healing Process [id number], taught by Dena Salinas R.N., CBCN at 06/02/2025 10:17 AM. Learner: Family, Patient Readiness: Acceptance Method: Explanation, Handout Response: Able to Teach Back Comment: hold eliquis 3 days prior to surgery Surgical Site Infection Reducing Your Risk [id number], taught by Dena Salinas R.N., CBCN at 06/02/2025 10:17 AM. Learner: Family, Patient Readiness: Acceptance Method: Explanation, Handout Response: Able to Teach Back Comment: hold eliquis 3 days prior to surgery Instructions To Get Ready for Surgery or Procedure, taught by Dena Salinas R.N., CBCN at 06/02/2025 10:17 AM. Learner: Family, Patient Readiness: Acceptance Method: Explanation, Handout Response: Able to Teach Back Comment: hold eliquis 3 days prior to surgery Education Comments No comments found. Surgery to be scheduled into Jul when patient can stop his Eliquis safely per the Oncology team. ICE DESK TEAM LEAD documented in this encounter Plan of Treatment DateTypeDepartmentCare Team (Latest Contact Info)Tlididmfkkh43/22/2025 11:15 AM CSTAppointment Department of Radiology in [place], [place] [address] [address] Pablo Vo M.D. [address] [place] [address] 07/22/2025 4:20 PM CSTOffice Visit Department of Oncology in [place], [place] [address] [phone] Pablo Vo M.D. [address] [place] [address] 08/06/2025 9:44 AM CSTHospital Encounter Outpatient Procedure Center in [place], [place] [address] [place] [address] Roland Benson D.O. [address] [place] [address] 08/06/2025 9:44 AM SERVICE DESK TEAM LEAD - 08/06/2025 11:42 AM CSTSurgery Outpatient Procedure Center in [address] [address] Roland Benson D.O. [address] [place] [address] ROBOTIC-ASSISTED MULTIPORT CHOLECYSTECTOMYNamePriorityAssociated Diagnoses Date/TimeROBOTIC-ASSISTED MULTIPORT CHOLECYSTECTOMY Cholecystitis Chronic 08/06/2025 9:44 AM CSTdocumented as of this encounter Visit Diagnoses Diagnosis Cholecystitis Chronic- Primary Cholecystitis Chronic- Primary Cholecystitis Chronic documented in this encounter Additional Health Concerns AssessmentNoted TimePHQ-9 Depression Total Score: 11:00 AM CDT documented as of this encounter Care Teams Team MemberRelationshipSpecialtyStart DateEnd Date Jeff Reyes M.D. [address] [place] [address] PCP - 03/14/24documented as of this encounter
--- OUTSIDE RECORDS SUMMARY | 2025-05-28 11:30 | XMS_ITS | Encounter Summary ---
Author Organization [facility] Address [address] [place] [address] Care Team Providers Care Monitor Worker Name Role Phone Jeff Reyes M.D. Primary Care Provider [phone] Reason for Referral * Outpatient (Routine) - AuthorizedSpecialtyDiagnoses / ProceduresReferred By ContactReferred To ContactAnesthesiology Diagnoses Cholecystitis Chronic Roland Benson D.O. [address] [place] [address] Phone: tel: fax: [facility] Region Referral IDStatusReasonStart DateExpiration DateVisits RequestedVisits [id number]/5/20255/ TER HELPER Reason for Visit * KgsgjfSpcdamykRzrkybg59 year old male with multiple medical comorbidities, cholecystitis requiring cholecystostomy tube,cleared by cardiology for possible cholecystectomy on 11/15/2024, please re-evaluate for cholecystectomy candidacy * Outpatient (Routine) - ClosedSpecialtyDiagnoses / ProceduresReferred By ContactReferred To ContactGeneral Surgery Diagnoses Cholecystitis Anuel Nunn M.D. [address] [place] [address] Phone: tel: fax: [facility] Region Referral IDStatusReasonStart DateExpiration DateVisits RequestedVisits [id number] Specialty Services Required Encounter Details DateTypeDepartmentCare Team (Latest Contact Info)Axrzruxakuh10/05/2025 11:30 AM CSTComprehensive Visit Department of General Surgery in [place], [place] [address] [place] [phone] Roland Benson D.O. [address] [place] [phone] Cholecystitis Chronic (Primary Dx) Social History Tobacco UseTypesPacks/DayYears UsedDateSmoking Tobacco: FmjwmpBwwwimjriy8Axze: 1977Passive Smoke Exposure: Never Tobacco Cessation:Counseling Given: Yes Alcohol UseStandard Drinks/WeekCommentsNot Currently1 (1 standard drink = 0.6 oz pure alcohol)Humiliation, Afraid, Rape, and Kick questionnaireAnswerDate RecordedWithin the last year, have you been afraid of your partner or ex-partner?Patient unable to oylusw8102/27/2025Within the last year, have you been humiliated or emotionally abused in other ways by your partner or ex-partner? Patient unable to eavtoo5902/27/2025Within the last year, have you been kicked, hit, slapped, or otherwise physically hurt by your partner or ex-partner?Patient unable to bpfzjd1802/27/2025Within the last year, have you been raped or forced to have any kind of sexual activity by your partner or ex-partner?Patient unable to lqlmys9302/27/2025Hunger Vital SignAnswerDate RecordedWithin the past 12 months, you worried that your food would run out before you got the money to buymore. Patient unable to npooij9302/27/2025Within the past 12 months, the food you bought just didn't last and you didn't have money to get more.Patient unable to answer 02/27/2025PRAPARE - TransportationAnswerDate RecordedIn the past 12 months, has lack of transportation kept you from medical appointments or from getting medications?Patient unable to nehcze9702/27/2025In the past 12 months, has lack of transportation kept you from meetings, work, or from getting things needed for daily living?Patient unable to mpyknh7102/27/2025HC UtilitiesAnswerDate Recorded In the past 12 months has the electric, gas, oil, or water company threatened to shut off services in your home?Patient unable to gkmpey1602/27/2025Housing StabilityAnswerDate RecordedWhat is your living situation today?Patient unable to lekccp7802/27/2025EducationAnswerDate RecordedWhat is the highest level of school you have completed or the highest degree you have received?12th grade 10/18/2022Sex and Gender InformationValueDate RecordedSex [facility]26/2018 4:20 PM CSTLegal PquIlud0808/25/2016 3:33 AM CSTGender IdentityNot on fileSexual OrientationNot on filedocumented as of this encounter Last Filed Vital Signs Vital SignReadingTime TakenCommentsBlood Tfuigudt414/7405/28/2025 11:30 AM KNITTER HELPER Sitnt166805/28/2025 11:30 AM RSMXsvgbxkwyvv51.1 ??C (96.9 ??F)05/28/2025 11:22 AM CSTRespiratory Rate--Oxygen Saturation--Inhaled Oxygen Concentration--Rrxywt908 kg (229 lb)05/28/2025 11:22 AM CSTat facility this morning per patientHeight 182.9 cm (6' 0.01)05/28/2025 11:22 AM CSTBody Mass Index31.0505/28/2025 11:22 AM CSTdocumented in this encounter Progress Notes * Roland Benson D.O. - 05/28/2025 11:30 AM CST SUBJECTIVE Patient was seen and examined. Patient had been seen by me earlier this year after a hospitalization for multiple issues. During that stay he was found to have a acute PE and UTI. He was being treated for these and during that workup showed that he actually had signs of cholecystitis. Because of the recent PE diagnosis and needing anticoagulation a cholecystostomy tube was placed. This did confirm obstructed cystic duct. Unfortunately he continued to have some other health issues and required multiple hospitalizations. 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 He continued to have complaints of abdominal pain and nausea and vomiting likely related to the gallbladder. His tube was replaced multiple times. His most recent hospitalization was for some confusion and acute kidney injury in [place] in March. Since then he has not had any other issues. He denies any shortness of breath. He is doing hyperbaric oxygen treatment for his wounds and they are healing nicely. Again of note he does have a history of progressing multiple sclerosis, and PE on anticoagulation. He denies any abdominal surgeries in the past. OBJECTIVE General: No apparent distress Abdomen: Soft, nondistended, no tenderness on exam. Cholecystostomy tube in place with tannish bilious output. ASSESSMENT / PLAN Chronic cholecystostomy tube status post cholecystitis with occluded cystic duct At this point patient does seem to be relatively stable. He seems to be doing much better than lastI saw him. Recommendation from Medical Oncology was to wait about 6 months prior to holding anticoagulation for elective surgery. This would put us into July which is when we are currently scheduling surgeries. He does have follow up imaging scheduled for that time to evaluate for resolution of the PEs. I think at this point even if they are still present plan would be to hold the anticoagulation for few days do the surgery and then let him restart. Again at this time he is in a much better state of health any was last I saw him. I did talk to the patient and his son who was present about the risks of surgery. Considering his chronic nature of this there could be a decent amount of scarri ng that could lead to prolonged surgical case as well as possibility of open. The risk of there being scarring in the liver is also wide support to be able to hold the anticoagulation for 3 days prior to surgery. Patient in his son state understanding and agreement. He does have enough problem withthe tube and continues to have abdominal pain on and off that he does wish to proceed with surgicalintervention. Again risks and benefits were discussed and consent has been obtained. Plan to proceed with robotic cholecystectomy in July. TER HELPER documented in this encounter Plan of Treatment DateTypeDepartmentCare Team (Latest Contact Info)Qzfzmivwisx20/22/2025 11:15 AM CSTAppointment Department of Radiology in [place], [place] [address] [place] [phone] Pablo Vo M.D. [address] [facility] [place] [phone] 07/22/2025 4:20 PM CSTOffice Visit Department of Oncology in [place], [place] [address] [place] [address] Pablo Vo M.D. [address] [facility] [place] [phone] 08/06/2025 9:44 AM CSTHospital Encounter Outpatient Procedure Center in [address] [address] Roland Benson, D.O. [address] [place] [address] 08/06/2025 9:44 AM KNITTER HELPER - 08/06/2025 11:42 AM CSTSurgery Outpatient Procedure Center in [address] [address] Roland Benson D.O. [address] [place] [phone] ROBOTIC-ASSISTED MULTIPORT CHOLECYSTECTOMYNamePriorityAssociated Diagnoses Date/TimeROBOTIC-ASSISTED MULTIPORT CHOLECYSTECTOMY Cholecystitis Chronic 08/06/2025 9:44 AM CSTNameTypePriorityAssociated DiagnosesOrder Schedule Preoperative Evaluation KAYLIE consult (clinic)Outpatient ReferralRoutine Cholecystitis Chronic 1 Occurrences starting 05/28/2025 until 08/28/2026documented as of this encounter Visit Diagnoses Diagnosis Cholecystitis Chronic- Primary Cholecystitis Chronic- Primary Cholecystitis Chronic documented in this encounter Additional Health Concerns AssessmentNoted TimePHQ-9 Depression Total Score: 11:00 AM CDT documented as of this encounter Care Teams Team MemberRelationshipSpecialtyStart DateEnd Jeff Reyes M.D. [address] [place] [address] PCP - General03/14/24documented as of this encounter
--- OUTSIDE RECORDS SUMMARY | 2025-06-05 07:09 | XMS_ITS | Encounter Summary ---
Author Organization [facility] Address [address] [place] [address] Care Team Providers Care Cryogenic Transport Driver Name Role Phone Jeff Reyes M.D. Primary Care Provider [phone] Reason for Referral * Outpatient (Routine) - ClosedSpecialtyDiagnoses / ProceduresReferred By ContactReferred To ContactRadiology Diagnoses Cholecystitis Procedures IR Percutaneous Cholecystostomy Tube Exchange Anuel Nunn M.D. [address] [place] [phone] Phone: tel: fax: [facility] Referral IDStatusReasonStart DateExpiration DateVisits RequestedVisits [id number]/16/202510/16/202611 EDITOR Reason for Visit * Outpatient (Routine) - ClosedSpecialtyDiagnoses / ProceduresReferred By ContactReferred To ContactRadiology Diagnoses Cholecystitis Procedures IR Percutaneous Cholecystostomy Tube Exchange Anuel Nunn M.D. [address] [place] [phone] Phone: tel: fax: [facility] Referral IDStatusReasonStart DateExpiration DateVisits RequestedVisits [id number]/16/202510/ Encounter Details DateTypeDepartmentCare Team (Latest Contact Info)Xabnwfqocmx57/13/2025 7:09 AM COPY EDITOR - 06/05/2025 8:59 AM CSTHospital Encounter Department of Radiology in [place], [place] [address] [place] [address] Anuel Nunn M.D. [address] [place] [address] Rosenda Pedroza, EUSEBIO, C.N.P., M.S.N. [address] [place] [address] Cholecystitis Discharge Disposition: Home or Self Care Social History Tobacco UseTypesPacks/DayYears UsedDateSmoking Tobacco: GhxwviYefcehiims6Roma: 1977Passive Smoke Exposure: NeverAlcohol UseStandard Drinks/WeekCommentsNot Currently1 (1 standard drink = 0.6 oz pure alcohol)Humiliation, Afraid, Rape, and Kick questionnaireAnswerDate RecordedWithin the last year, have you been afraid of your partner or ex-partner?Patient unable to jonkjg9902/27/2025Within the last year, have you been humiliated or emotionally abused in other ways by your partner or ex-partner?Patient unable to zhvggz0202/27/2025Within the last year, have you been kicked, hit, slapped, or otherwise physically hurt by your partner or ex-partner?Patient unable to udpmmk0902/27/2025Within the last year, have you been raped or forced to have any kind of sexual activity by your part ner or ex-partner?Patient unable to fuepjb9802/27/2025Hunger Vital SignAnswerDate RecordedWithin the past 12 months, you worried that your food would run out before you got the money to buymore.Patient unable to pstmcv7402/27/2025Within the past 12 months, the food you bought just didn't last and you didn't have money to get more.Patient unable to uewmvf1202/27/2025PRAPARE - TransportationAnswerDate RecordedIn the past 12 months, has lack of transportation kept you from medical appointments or from getting medications?Patient unable to dltkuf0702/27/2025In the past 12 months, has lack of transportation kept you from meetings, work, or from getting things needed for daily living?Patient unable to pxwnwr1302/27/2025 [facility] UtilitiesAnswerDate RecordedIn the past 12 months has the [employer], [employer], oil, or water [employer] threatened to shut off services in your home?Patient unable to ususgh9202/27/2025Housing StabilityAnswerDate RecordedWhat is your living situation today?Patient unable to femuxa2802/27/2025EducationAnswerDate RecordedWhat is the highest level of school you have completed or the highest degree you have received?12th grade10/18/2022Sex and Gender InformationValueDate RecordedSex Assigned at RehaiGfsq54/04/2018 4:20 PM CSTLegal IypRmeg7808/25/2016 3:33 AM CSTGender IdentityNot on fileSexual OrientationNot on filedocumented as of this encounter Last Filed Vital Signs Vital SignReadingTime TakenCommentsBlood Numqfoyk221/56108/05/2024 8:25 AM COPY EDITOR Cwpfo0237 8:25 AM EZNCusvgildgol18.9 ??C (96.6 ??F)06/05/2025 7:35 AM CSTRespiratory Cmmj612308/05/2024 7:35 AM CSTOxygen Pyrorebiqb37%06/05/2025 8:25 AM CSTInhaled Oxygen Concentration--Weight--Height--Body Mass Index--documented in this encounter Medications at Time of Discharge MedicationSigDispense QuantityRefillsLast FilledStart DateEnd Date acetaminophen (TylenoL) 500 mg tablet Take 2 tablets (1,000 mg total) by mouth 3 (three) times a day.08/16/2024 acetic acid 0.25 % irrigation (sterile) Apply to buttocks wounds topically as needed for wound care allopurinoL (Zyloprim) 100 mg tablet Take 100 mg by mouth daily. AntifungaL, clotrimazole, 1 % cream Apply 1 Application topically 2 (two) times a day.05/14/2024 apixaban (Eliquis) 5 mg tablet Take 5 mg by mouth 2 (two) times a day.12/17/2024 atorvastatin (Lipitor) 80 mg tablet Take 1 tablet (80 mg total) by mouth at bedtime. 90 tablet bacitracin 500 unit/gram ointment Apply 1 Application topically 2 (two) times a day.08/10/2023 baclofen (LIORESAL) 10 mg tablet Indications:Multiple Sclerosis, Unspecified (HCC)Take 1 tablet (10 mg total) by mouth 2 (two) times a day. 60 tablet 12/08/2022 BD PosiFlush Normal Saline 0.9 injection Use 10 mL via irrigation every day01/13/2025 calcium carbonate (TUMS) 500 mg (200 mg calcium) chewable tablet Chew 2 tablets (400 mg of calcium total) 2 (two) times a day.12/22/2022 carbamide peroxide (Debrox) 6.5 % otic solution Administer 5 drops into each ear as needed. cetirizine (ZyrTEC) 10 mg tablet Take 10 mg by mouth at bedtime. cholecalciferol 25 mcg (1,000 unit) tablet Take 1 tablet (25 mcg total) by mouth daily.08/16/2024 diclofenac sodium (Voltaren) 1 % gel Indications:Multiple Sclerosis, Unspecified (HCC)Apply 2 g topically 2 (two) times a day as needed (pain).08/16/2024 ferrous sulfate tablet Take 325 mg by mouth every other day. fluticasone propionate (Flonase) 50 mcg/actuation nasal spray Administer 1 spray into each nostril 2 (two) times a day.02/18/2025 furosemide (Lasix) 40 mg tablet Take 40 mg by mouth every morning. latanoprost (XALATAN) 0.005 % ophthalmic solution Administer 1 drop into both eyes daily.09/19/2022 lisinopriL (PRINIVIL,ZESTRIL) 40 mg tablet Indications:Hypertension Essential PrimaryTake 1 tablet (40 mg total) by mouth daily. 90 tablet 12/08/2022 metFORMIN XR (Glucophage-XR) 500 mg 24 hr tablet Take 1,000 mg by mouth daily with evening meal. metoprolol succinate (TOPROL-XL) 100 mg 24 hr tablet Indications:Hypertension Essential PrimaryTake 1 tablet (100 mg total) by mouth [...] oxyCODONE (Roxicodone) 5 mg immediate release tablet Indications:Acute Pain ExceptionTake 1 tablet (5 mg total) by mouth every 6 (six) hours as needed for severe pain or score 7-10 of 10 Indication: Acute Pain Exception. 12 tablet 02/27/2025 pantoprazole (PROTONIX) 40 mg EC tablet Take 1 tablet (40 mg total) by mouth 2 (two) times a day before breakfast and dinner. 180 tablet polyethylene glycol (MIRALAX) 17 gram powder packet Take 1 packet (17 g total) by mouth daily as needed for constipation. Dissolve each 17 g dose in 240 mLs (8 ounces) of beverage. 30 each potassium chloride 10 mEq ER capsule Take 1 capsule (10 mEq total) by mouth 2 (two) times a day with meals.08/16/2024 predniSONE (Deltasone) 20 mg tablet 05/22/2025 saliva substitution (Biotene Dry Mouth Oral Rinse) mouthwash Apply 1 Application to the mouth or throat as needed (dry mouth). senna 8.6 mg tablet Take 17.2 mg by mouth every morning.08/23/2024 sennosides-docusate sodium (SENOKOT-S) 8.6-50 mg per tablet Indications:Neurogenic BowelTake 1 tablet by mouth 2 (two) times a day as needed for constipation.07/04/2018 sertraline (Zoloft) 25 mg tablet Take 25 mg by mouth daily.03/28/2025documented as of this encounter Procedure Notes * Rosenda Pedroza APRN, C.N.P., M.S.N. - 06/05/2025 8:36 AM CST BRIEF POST PROCEDURE NOTE Vascular & Interventional Radiology PROCEDURE Blanca tube exchange PRE-PROCEDURE DIAGNOSIS Cholecystitis, intermittent cystic duct occlusion POST-PROCEDURE DIAGNOSIS Same. PROCEDURE DETAILS / FINDINGS Retracted 14 Fr cholecystostomy tube on initial findings. Decompressed gallbladder with no contrastflowing into cystic duct or duodenum. Exchanged for 10.2 Fr Ruff Franco cholecystostomy tube. Please see Radiology Report for full details. FRUIT OR NUT PICKER Rosenda Pedroza APRN, C.Johnnie, M.S.N. Qasim Rader MD SPECIMENS REMOVED None. ESTIMATED BLOOD LOSS <5ml COMPLICATIONS None. PATIENT DISPOSITION Return to outpatient unit for recovery. Discharge patient when discharge criteria met. PLAN Return in 3 months for routine exchange if tube is retained. Planned cholecystectomy with General Surgery in July. EDITOR documented in this encounter Plan of Treatment DateTypeDepartmentCare Team (Latest Contact Info)Lmtjedymuyq03/22/2025 11:15 AM CSTAppointment Department of Radiology in [place], [place] [address] [place] [phone] Pablo Vo M.D. [address] [place] [phone] 07/22/2025 4:20 PM CSTOffice Visit Department of Oncology in [place], [place] [address] [address] Pablo Vo M.D. [address] [place] [address] 08/06/2025 9:44 AM CSTHospital Encounter Outpatient Procedure Center in [place], [place] [address] [place] [phone] Roland Benson D.O. [address] [place] [phone] 08/06/2025 9:44 AM COPY EDITOR - 08/06/2025 11:42 AM CSTSurgery Outpatient Procedure Center in [place], [place] [address] [place] [phone] Roland Benson D.O. [address] [place] [address] ROBOTIC-ASSISTED MULTIPORT CHOLECYSTECTOMYNamePriorityAssociated Diagnoses Date/TimeROBOTIC-ASSISTED MULTIPORT CHOLECYSTECTOMY Cholecystitis Chronic 08/06/2025 9:44 AM CSTdocumented as of this encounter Procedures Procedure NamePriorityDate/TimeAssociated DiagnosisCommentsIR PERCUTANEOUS CHOLECYSTOSTOMY TUBE EXCHANGERAD - Routine (most inpatients and all outpatients) 06/05/2025 8:33 AM COPY EDITOR Cholecystitis documented in this encounter Results * IR Percutaneous Cholecystostomy Tube Exchange (06/05/2025 8:33 AM COPY EDITOR) Anatomical RegionLateralityModalityAbdomen, Vascular Interventional RST LOS, Vascular Interventional ARZ LOS, Vascular Interventional FLA LOSN/AX-Ray AngiographySpecimen (Source)Anatomical Location / LateralityCollection Method / VolumeCollection TimeReceived Time Impressions 06/05/2025 9:18 AM COPY EDITOR Expedited exchange and downsize to a 10.2 Belizean cholecystostomy catheter. Narrative 06/05/2025 9:18 AM COPY EDITOR EXAM: IR PERCUTANEOUS CHOLECYSTOSTOMY TUBE EXCHANGE INDICATION: 75 year old male with history of cholecystitis requiring 14 Belizean cholecystostomy tube, routine 3 month exchange COMPARISON: Prior images 02/22/25 PROCEDURAL PERSONNEL: Attending: Rosenda Rader MD PREPROCEDURE: Patient seen, evaluated, and history reviewed. Discussed risks, benefits, alternatives for procedure, and obtained informed consent. ??Patient understood the information and questions answered. Immediately [...] a care steam plant control room operator. Patient was ready to learn with no apparent learning barriers were identified. Post-procedure care explained; patient expressed understanding of the content. PROCEDURE DETAILS: Sedation: None. Local anesthesia was achieved with lidocaine. Sedation time: NA Estimated Blood Loss: Less than 10 mL. TECHNIQUE: Imaging guidance for catheter exchange: Fluoroscopy with permanent image storage Access side: Right lateral abdomen Catheter: 10.2 [place]an Ruff-Franco catheter Technique: The indwelling 14 Belizean catheter was injected with contrast. A guidewire was inserted through the catheter, and the catheter was exchanged for a new 10.2 [place]an catheter. Contrast was injected confirming the location of the catheter. A permanent image was saved to PACS. The catheter wasconnected to a gravity drainage bag. Intraprocedural or immediate post-procedural complications: None FINDINGS: Initial images show catheter retracted into tract. ??Wire and KMP placed into gallbladder and contrast injection performed. No contrast flowed beyond the gallbladder, occluded cystic duct. ??Catheterexchanged and downsized to 10.2 Fr Ruff-Franco catheter. Catheter tip location: Final fluoroscopic image demonstrates the catheter tip to be located within the gallbladder. Additional observations: N/A PLAN: The patient is to return in 3 months for a routine catheter exchange if tube is retained. ??Follow up with General Surgery for planned cholecystectomy. ?? Procedure Note Rosenda Pedroza, EUSEBIO, C.N.P., M.S.N. - 06/05/2025 EXAM: IR PERCUTANEOUS CHOLECYSTOSTOMY TUBE EXCHANGE INDICATION: 75 year old male with history of cholecystitis requiring 14French cholecystostomy tube, routine 3 month exchange COMPARISON: Prior images 02/22/25 PROCEDURAL PERSONNEL: Attending: Rosenda Rader MD PREPROCEDURE: Patient seen, evaluated, and history reviewed. Discussedrisks, benefits, alternatives for procedure, and obtained informedconsent. Patient understood the information and questions answered.Immediately prior to starting the procedure, in the presence of theassisting personnel, procedural pause was conducted to verify correctpatient identity and verification of procedure to be performed, and asapplicable, correct side and site, correct patient position, availabilityof implants, special equipment, or special requirements, and all image andspecimen identification data. The roles and responsibilities of care teammembers were discussed. The medication list was reviewed and there are no changes to current medications. Patient education provided by a care teammember. Patient was ready to learn with no apparent learning barriers wereidentified. Post-procedure care explained; patient expressed understandingof the content. PROCEDURE DETAILS: Sedation: None. Local anesthesia was achieved with lidocaine. Sedation time: NA Estimated Blood Loss: Less than 10 mL. TECHNIQUE: Imaging guidance for catheter exchange: Fluoroscopy with permanent imagestorage Access side: Right lateral abdomen Catheter: 10.2 [place]an Ruff-Franco catheter Technique: The indwelling 14 Bel[place]an catheter was injected with contrast. A guidewire was inserted through the catheter, and the catheter wasexchanged for a new 10.2 [place]an catheter. Contrast was injected confirmingthe location of the catheter. A permanent image was saved to PACS. Thecatheter was connected to a gravity drainage bag. Intraprocedural or immediate post-procedural complications: None FINDINGS: Initial images show catheter retracted into tract. Wire and KMP placedinto gallbladder and contrast injection performed. No contrast flowedbeyond the gallbladder, occluded cystic duct. Catheter exchanged anddownsized to 10.2 Fr Ruff-Franco catheter. Catheter tip location: Finalfluoroscopic image demonstrates the catheter tip to be located within thegallbladder. Additional observations: N/A PLAN: The patient is to return in 3 months for a routine catheter exchange iftube is retained. Follow up with General Surgery for plannedcholecystectomy. IMPRESSION: Expedited exchange and downsize to a 10.2 Belizean cholecystostomycatheter. Authorizing ProviderResult TypeResult StatusAndeneida STARK IR PROCEDURES Final Result documented in this encounter Visit Diagnoses Diagnosis Cholecystitis Chronic- Primary Cholecystitis Cholecystitis Chronic documented in this encounter Administered Medications Medication OrderMAR ActionAction DateDoseRateSite iohexoL 350 mg iodine/mL solution (Omnipaque) As needed, Starting on Jayla 06/05/25 at 0830, Intra-Op Given06/05/2025 8:30 AM CST15 mL lidocaine-sodium bicarbonate (buffered) 0.9%-0.84% injection infiltration, As needed, Starting on Jayla 06/05/25 at 0812, Intra-Op Given06/05/2025 8:12 AM CST4 mLAbdominal Tissuedocumented in this encounter Active and Recently Administered Medications Times are shown in COPY EDITOR.Medication Order iohexoL 350 mg iodine/mL solution (Omnipaque) (COMPLETED) As needed, Starting on Jayla 06/05/25 at 0830, Intra-Op * 0830 (Given - Provider: Rosenda Pedroza APRN, C.N.P., M.S.N.) lidocaine-sodium bicarbonate (buffered) 0.9%-0.84% injection (COMPLETED) infiltration, As needed, Starting on Jayla 06/05/25 at 0812, Intra-Op * 0812 (Given - Provider: Rosenda Pedroza APRN, C.N.P., M.S.N. - Comment: Blanca tube insertion site) documented in this encounter Additional Health Concerns AssessmentNoted TimePHQ-9 Depression Total Score: 11:00 AM CDT documented as of this encounter Care Teams Team MemberRelationshipSpecialtyStart DateEnd Jeff Reyes M.D. [address] HospitalL[place] [phone] PCP - 03/14/24documented as of this encounter
--- OUTSIDE RECORDS SUMMARY | 2025-06-17 08:51 | XMS_ITS | Encounter Summary ---
Author Organization [facility] Address [address] [place] [address] Care Team Providers Care Regulatory Affairs Director Name Role Phone Jeff Reyes M.D. Primary Care Provider [phone] Reason for Referral * Outpatient (Routine) - AuthorizedSpecialtyDiagnoses / ProceduresReferred By ContactReferred To ContactRadiology Diagnoses Cholecystitis Procedures IR Percutaneous Cholecystostomy Tube Exchange Rosenda Pedroza APRN C.N.P., M.S.N. [address] [place] [address] Phone: tel: fax: [facility] Region Referral IDStatusReasonStart DateExpiration DateVisits RequestedVisits [id number]/[id number]/25/[id number] ITAL PLAN ADMINISTRATOR Reason for Visit * ReasonCommentsWound CarePatient arrives via EMS with concerns that his gallbladder tube fell out this morning. Patient resides at [facility] and is not mobile. Denies pain upon arrival. Tube area is covered with adressing and a small amount of blood is noted. VSS. Encounter Details DateTypeDepartmentCare Team (Latest Contact Info)Rvgihmdxyuk37/25/2025 8:51 AM HOSPITAL PLAN ADMINISTRATOR - 06/17/2025 2:21 PM CSTEmergency [facility] [address] [place] [address] Shayna Conteh P.A.-C. [address] [place] [address] Cholecystitis (Primary Dx); Encounter For Change Or Removal Of Drains Discharge Disposition: Home or Self Care Social History Tobacco UseTypesPacks/DayYears UsedDateSmoking Tobacco: FcvsxzFkwksvfiae4Loap: 1978Passive Smoke Exposure: NeverAlcohol UseStandard Drinks/WeekCommentsNot Currently1 (1 standard drink = 0.6 oz pure alcohol)Humiliation, Afraid, Rape, and Kick questionnaireAnswerDate RecordedWithin the last year, have you been afraid of your partner or ex-partner?Patient unable to wrxvsx0802/27/2025Within the last year, have you been humiliated or emotionally abused in other ways by your partner or ex-partner?Patient unable to emtzrt2202/27/2025Within the last year, have you been kicked, hit, slapped, or otherwise physically hurt by your partner or ex-partner?Patient unable to qskvzr6402/27/2025Within the last year, have you been raped or forced to have any kind of sexual activity by your part ner or ex-partner?Patient unable to hodcun7602/27/2025Hunger Vital SignAnswerDate RecordedWithin the past 12 months, you worried that your food would run out before you got the money to buymore.Patient unable to zcuzkl9302/27/2025Within the past 12 months, the food you bought just didn't last and you didn't have money to get more.Patient unable to vwasxi5702/27/2025PRAPARE - TransportationAnswerDate RecordedIn the past 12 months, has lack of transportation kept you from medical appointments or from getting medications?Patient unable to oogbzg4902/27/2025In the past 12 months, has lack of transportation kept you from meetings, work, or from getting things needed for daily living?Patient unable to cuutic7002/27/2025 [facility] UtilitiesAnswerDate RecordedIn the past 12 months has the electric, gas, oil, or water company threatened to shut off services in your home?Patient unable to lesugn9202/27/2025Housing StabilityAnswerDate RecordedWhat is your living situation today?Patient unable to drajob4602/27/2025EducationAnswerDate RecordedWhat is the highest level of school you have completed or the highest degree you have received?12th grade10/18/2022Sex and Gender InformationValueDate RecordedSex Assigned at WzenlIgdy45/04/2018 4:20 PM CSTLegal ZpgVxwj9008/25/2016 3:33 AM CSTGender IdentityNot on fileSexual OrientationNot on filedocumented as of this encounter Last Filed Vital Signs Vital SignReadingTime TakenCommentsBlood Semaezje891/6106/17/2025 2:00 PM HOSPITAL PLAN ADMINISTRATOR Jbgys271406/17/2025 2:00 PM XKUTkpmbqxpsmr14.6 ??C (97.9 ??F)06/17/2025 8:56 AM CSTRespiratory Ftwp2732 1:00 PM CSTOxygen Ioymahltip12%06/17/2025 2:00 PM CSTInhaled Oxygen Concentration--Qhqhpp901 kg (232 lb 12.9 oz)06/17/2025 8:58 AM CSTHeight--Body Mass Index31.5705/28/2025 11:22 AM CSTdocumented in this encounter Discharge Instructions * Discharge Instructions* Shayna Conteh P.A.-C. - 06/17/2025 10:17 AM HOSPITAL PLAN ADMINISTRATOR You came to the emergency department today for replacement of your blanca drain. IR was able to get this done and use a bigger tube. Please keep your follow up appointments as scheduled. Come back to the emergency department if any new or worsening concerns. ITAL PLAN ADMINISTRATOR ITAL PLAN ADMINISTRATOR documented in this encounter Medications at Time [...] mg by mouth 2 (two) times a day.06/16/2025 nitroglycerin (Nitrostat) 0.[address] [...] Please see Radiology Report for full details. REGULATORY AFFAIRS DIRECTOR Rosenda Pedroza APRN, C.N.P., M.S.N. SPECIMENS REMOVED None. ESTIMATED BLOOD LOSS <5ml COMPLICATIONS None. PATIENT DISPOSITION Return to outpatient unit for recovery. Discharge patient when discharge criteria met. PLAN Return in 3 months for routine exchange if tube is retained. Planned cholecystectomy with General Surgery in July. ITAL PLAN ADMINISTRATOR documented in this encounter ED Notes * Shayna Conteh P.A.-C. - 06/17/2025 8:58 AM CST The patient verbally consented to an audio recording of their visit to assist with the completion of documentation. SUBJECTIVE CHIEF COMPLAINT/REASON FOR VISIT Wound Care HISTORY OF PRESENT ILLNESS History of Present Illness Mr. Ren Ramirez is a 75 year old male who presents with a dislodged gallbladder tube. His gallbladder tube fell out this morning, and he was unaware of the dislodgement until it was discovered during a check. No pain, shortness of breath, fevers, or chills. There is no drainage or leaking from the site where the tube was placed. He is scheduled to have his gallbladder removed after June due to his anticoagulation need. Denies any new fevers or chills. He has not taken his morning medications yet. He lives at [facility] in [place]. REVIEW OF SYSTEMS Review of systems is negative except as noted in HPI above. OBJECTIVE VITAL SIGNS Initial Vitals Temperature 06/17/25 0856 36.6 ??C Pulse Rate 06/17/25 0856 68 Heart Rate -- Resp Rate 06/17/25 0856 24 Blood Pressure 06/17/25 0856 157/60 SpO2 06/17/25 0856 95 % Pain Score 06/17/25 0857 0 - No pain PHYSICAL EXAMINATION General: Well developed well-nourished male in no acute distress. Cardiac: RRR, no murmurs Lungs: CTAB. Normal effort. Abdomen: Normal bowel sounds in all four quadrants. Bandage intact with minimal oozing. Soft and nontender. ASSESSMENT / PLAN Ren Ramirez is a 75 y.o. male with history of MS, spastic paraparesis, and cholecystitis s/p blanca drainage tube presenting to the ED for evaluation of dislodgement of cholecystectomy tube. Differential Diagnoses include: tube malfunction, tube displacement, cholecystitis Assessment & Plan Cholelithiasis with cholecystostomy tube displacement Cholecystostomy tube displaced without complications. Gallbladder removal planned post-June, potential for earlier intervention based on health status. - Contacted IR for new cholecystostomy tube placement and they were kind enough to replace that today. See procedure note. - Ordered morning medications as he has not yet taken those - Encouraged follow-up with general surgery and IR as planned. Return to ED sooner for new or worsening symptoms. Patient reports understanding and agreement with plan as outlined above. Questions encouraged and answered Prior records reviewed: general surgery records, IR records Case discussed with: IR At time of discharge patient is under no acute distress, appears non-toxic, and is still alert and acting normally. ED Course as of 06/20/25 09MonJun 17, [address] Lazar of IR will take for replacement tube today. Order in 09 Going to IR now 1024 IR Percutaneous Cholecystostomy Tube Exchange PLAN: The patient is to return in 3 months for a routine catheter exchange. IMPRESSION: Expedited exchange of the 12 Panamanian cholecystostomy catheter. Final Diagnoses: as of 06/20/25 0909 Cholecystitis Encounter For Change Or Removal Of Drains Patient advised to f/u in ED if pt develops any new/worsening sx. Patient agreeable to plan as outlined above. Questions encouraged and answered. Shayna Conteh P.A.-C. Emergency Medicine Shayna Conteh P.A.-C. 06/20/25 0913 ITAL PLAN ADMINISTRATOR documented in this encounter Plan of Treatment DateTypeDepartmentCare Team (Latest Contact Info)Huedcevnwxs86/22/2025 11:15 AM CSTAppointment Department of Radiology in [place], [place] [address] [phone] Pablo Vo M.D. [address] [place] [address] 07/22/2025 4:20 PM CSTOffice Visit Department of Oncology in [place], [place] [address] [address] Pablo Vo M.D. [address] [place] [phone] 08/06/2025 9:44 AM CSTHospital Encounter Outpatient Procedure Center in [address] [address] Roland Benson D.OAmparo [address] [place] [phone] 08/06/2025 9:44 AM HOSPITAL PLAN ADMINISTRATOR - 08/06/2025 11:42 AM CSTSurgery Outpatient Procedure Center in [address] [phone] Roland Benson D.O. [address] [place] [phone] ROBOTIC-ASSISTED MULTIPORT CHOLECYSTECTOMYNameTypePriorityAssociated Diagnoses Order ScheduleIR Percutaneous Cholecystostomy Tube ExchangeImagingRAD - Routine (most inpatients and all outpatients) Cholecystitis Expected: 09/17/2025 (Approximate), Expires: 09/17/2026NamePriorityAssociated DiagnosesDate/TimeROBOTIC-ASSISTED MULTIPORT CHOLECYSTECTOMY Cholecystitis Chronic 08/06/2025 9:44 AM CSTdocumented as of this encounter Goals GoalPatient Goal TypeAssociated ProblemsRecent ProgressPatient-Stated?Author Autogenerated Goal Care PlanAutogenerated ProblemNoZelinsky, Margaritaannedocumented as of this encounter Procedures Procedure NamePriorityDate/TimeAssociated DiagnosisCommentsIR PERCUTANEOUS CHOLECYSTOSTOMY TUBE EXCHANGERAD - Semiurgent (Fast; most ED patients; some inpatients)06/17/2025 10:04 AM HOSPITAL PLAN ADMINISTRATOR documented in this encounter Results * IR Percutaneous Cholecystostomy Tube Exchange (06/17/2025 10:04 AM HOSPITAL PLAN ADMINISTRATOR) Anatomical RegionLateralityModalityAbdomen, Vascular Interventional RST LOS, Vascular Interventional ARZ LOS, Vascular Interventional FLA LOSN/AX-Ray AngiographySpecimen (Source)Anatomical Location / LateralityCollection Method / VolumeCollection TimeReceived Time Impressions 06/17/2025 10:20 AM HOSPITAL PLAN ADMINISTRATOR Expedited exchange of the 12 Panamanian cholecystostomy catheter. Narrative 06/17/2025 10:20 AM HOSPITAL PLAN ADMINISTRATOR EXAM: IR PERCUTANEOUS CHOLECYSTOSTOMY TUBE EXCHANGE INDICATION: [...] medications. Patient education provided by a care horses or mules teamster. Patient was ready to learn with no apparent learning barriers were identified. Post-procedure care explained; patient expressed understanding of the content. PROCEDURE DETAILS: Sedation: None. Local anesthesia was achieved with lidocaine. Sedation time: NA Estimated Blood Loss: Less than 10 mL. TECHNIQUE: Imaging guidance for catheter exchange: Fluoroscopy with permanent image storage Access side: Right lateral abdomen Catheter: 12 Panamanian Ruff-Franco catheter Technique: The indwelling 10.2 Panamanian catheter was completely dislodged. ??A guidewire and KUMPE catheter were inserted via existing tract and access gained into gallbladder, confirmed with contrast injection. ??The catheter was then exchanged over the wire for a new 12 Panamanian Ruff-Franco catheter. ??Contrast was injected confirming the location of the [...] exam with contrast flowing into the duodenum. ?? PLAN: The patient is to return in 3 months for a routine catheter exchange. Procedure Note Rosenda Pedroza, EUSEBIO, C.N.P., M.S.N. - 06/17/2025 EXAM: IR PERCUTANEOUS [...] Access side: Right lateral abdomen Catheter: 12 Panamanian Ruff-Franco catheter Technique: The indwelling 10.2 Panamanian catheter was completely dislodged.A guidewire and KUMPE catheter were inserted via existing tract and accessgained into gallbladder, confirmed with contrast injection. The catheterwas then exchanged over the wire for a new 12 Panamanian Ruff-Muellercatheter. Contrast was injected confirming the location [...] exchange. IMPRESSION: Expedited exchange of the 12 Panamanian cholecystostomy catheter. Authorizing ProviderResult TypeResult StatusShayna MCGOWAN PROCEDURESFinal Result documented in this encounter Visit Diagnoses Diagnosis Cholecystitis Chronic- Primary Cholecystitis- Primary Encounter For Change Or Removal Of Drains Cholecystitis Chronic documented in this encounter Administered Medications Medication OrderMAR ActionAction DateDoseRateSite apixaban tablet 5 mg (Eliquis) 5 mg, oral, 2 times daily, First dose (after last modification) on Mon06/17/25 at 1213 Given06/17/2025 12:24 PM CST5 mg baclofen tablet 10 mg (LioresaL) 10 mg, oral, 2 times daily, First dose (after last modification) on Mon06/17/25 at 1213 06/17/2025 12:25 PM CST10 mg furosemide tablet 40 mg (Lasix) 40 mg, oral, Every morning, First dose (after last modification) on Mon06/17/25 at 1213 06/17/2025 12:29 PM CST40 mg iohexoL 350 mg iodine/mL solution (Omnipaque) As needed, Starting on Mon06/17/25 at 0959, Intra-Op Given06/17/2025 9:59 AM CST10 mL lidocaine-sodium bicarbonate (buffered) 0.9%-0.84% injection infiltration, As needed, Starting on Mon06/17/25 at 0952, Intra-Op Given06/17/2025 9:52 AM CST5 mL metoprolol succinate 24 hr tablet 100 mg (Toprol XL) 100 mg, oral, Daily, First dose (after last modification) on Mon06/17/25 at 1213, Do NOT crush or chew. Tablet may be split on score if needed. Given06/17/2025 12:28 PM SEP[address] tablet 40 mg (Protonix) 40 mg, oral, 2 times daily before morning and evening meals, First dose (after last modification) on Mon06/17/25 at 1213, Swallow whole. Do NOT crush, chew, or split tablet. Given06/17/2025 12:27 PM CST40 mg sertraline tablet 25 mg (Zoloft) 25 mg, oral, Daily, First dose (after last modification) on Mon06/17/25 at 1213 Given06/17/2025 12:25 PM CST25 mgdocumented in this encounter Active and Recently Administered Medications Times are shown in HOSPITAL PLAN ADMINISTRATOR.Medication Order// apixaban tablet 5 mg (Eliquis) 5 mg, oral, 2 times daily, First dose (after last modification) on Mon06/17/25 at 1213 * 1224 (Given - Provider: Marietta Weaver RAmparoN.) baclofen tablet 10 mg (LioresaL) 10 mg, oral, 2 times daily, First dose (after last modification) on Mon06/17/25 at 1213 * 1225 (Given - Provider: Marietta Weaver R.N.) furosemide tablet 40 mg (Lasix) 40 mg, oral, Every morning, First dose (after last modification) on Mon06/17/25 at 1213 * 1229 (Given - Provider: Marietta Weaver R.N.) metoprolol succinate 24 hr tablet 100 mg (Toprol XL) 100 mg, oral, Daily, First dose (after last modification) on Mon06/17/25 at 1213, Do NOT crush or chew. Tablet may be split on score if needed. * 1228 (Given - Provider: Marietta Weaver R.N.) pantoprazole DR tablet 40 mg (Protonix) 40 mg, oral, 2 times daily before morning and evening meals, First dose (after last modification) on Mon06/17/25 at 1213, Swallow whole. Do NOT crush, chew, or split tablet. * 1227 (Given - Provider: Marietta Weaver R.N.) sertraline tablet 25 mg (Zoloft) 25 mg, oral, Daily, First dose (after last modification) on Mon06/17/25 at 1213 * 1225 (Given - Provider: Marietta Weaver R.N.) Medication Order06/15// iohexoL 350 mg iodine/mL solution (Omnipaque) (COMPLETED) As needed, Starting on Mon06/17/25 at 0959, Intra-Op * 0959 (Given - Provider: Rosenda Pedroza APRN, C.N.P., M.S.N.) lidocaine-sodium bicarbonate (buffered) 0.9%-0.84% injection (COMPLETED) infiltration, As needed, Starting on Mon06/17/25 at 0952, Intra-Op * 0952 (Given - Provider: Rosenda Pedroza APRN, C.N.P., M.S.N.) documented in this encounter Additional Health Concerns Active ProblemsNoted DateDiagnosed DateAutogenerated Tbhdunm41/21/2025Assessment Noted TimePHQ-9 Depression Total Score: 11:00 AM CDTdocumented as of this encounter Care Teams Team MemberRelationshipSpecialtyStart DateEnd Jeff Sandhu M.D. [address] [place] [phone] PCP - [facility]03/14/24documented as of this encounter
[2025-07-02 13:00] LABS: Appearance Urine Slightly Cloudy (Clear)
--- OUTSIDE RECORDS SUMMARY | 2025-07-03 00:16 | XMS_ITS | Clinical Summary ---
Author Organization [employer] Address [facility] [place] [address] Care Team Providers Care Senior User Experience Architect Name Role Phone Birdie Taveras RN Unavailable [phone] Karrie Singer RN Unavailable [phone] Bijan Crawford MD Primary Care Provider [phone] Allergies Active AllergyReactionsCriticalityNoted DateCommentsVancomycinvancomycin infusion reaction (cutaneous flushing/non-allergic reaction)Opawsd5605/26/2018 Red Man Syndrome Medications MedicationSigDispense QuantityRefillsLast FilledStart DateEnd DateStatus acetaminophen (TYLENOL EXTRA STRGTH) 500 mg tablet Take 1,000 mg by mouth three times daily. Max acetaminophen dose: 4000mg in 24 hrs.Active allopurinoL (ZYLOPRIM) 100 mg tablet Take 100 mg by mouth once daily.Active apixaban (ELIQUIS) 5 mg tablet Take 5 mg by mouth two times daily.Active atorvastatin (LIPITOR) 80 mg tablet Take 80 mg by mouth at bedtime.Active calcium carbonate (Tums) 200 mg calcium (500 mg) chewable tablet Chew 1,000 mg by mouth two times daily.Active cholecalciferol (Vitamin D) 1,000 unit tablet Take 1,000 units by mouth once daily.Active ondansetron (ZOFRAN) 4 mg tablet Take 4 mg by mouth four times daily.Active pantoprazole (PROTONIX) 40 mg delayed-release tablet Take 40 mg by mouth two times daily before meals.Active polyethylene glycol (MIRALAX; GLYCOLAX) 17 g per packet packet Mix 1 Packet in liquid then take by mouth once daily.Active clotrimazole (LOTRIMIN) 1 % cream Apply topically to affected area(s) two times daily. To groinActive bacitracin (Antibiotic (bacitracin zinc)) 500 unit/gram ointment Apply topically to affected area(s) two times daily.Active acetic acid 0.25% 0.25 % irrigation Irrigate to affected area two times daily. To buttock woundsActive sennosides-docusate (Senna-S) (8.6-50 mg) tablet Take 1 Tablet by mouth once daily if needed for Constipation.Active latanoprost (XALATAN) 0.005 % ophthalmic solution Place 1 Drop into both eyes at bedtime.Active carbamide peroxide (Debrox) 6.5 % otic solution Place 5 Drops into both ears every Monday. At bedtime every MondayActive fluticasone (50 mcg per actuation) nasal solution (FLONASE) Inhale 1 [place] in both nostrils two times daily.5Active nitroglycerin 0.[address] 0.4 mg under the tongue every 5 minutes if needed.5Active sertraline (ZOLOFT) 25 mg tablet Take 25 mg by mouth once daily.5Active ferrous sulfate 325 mg (65 mg iron) tablet Take 325 mg by mouth once every other day.Active cetirizine (ZYRTEC) 10 mg tablet Indications:Allergic rhinitis due to other allergic trigger, unspecified seasonalityTake 1 Tablet (10 mg) by mouth once daily if needed for Allergy Symptoms or Rhinitis.5Active metoprolol succinate (TOPROL XL) 50 mg sustained-release tablet Indications:Coronary artery disease, unspecified vessel or lesion type, unspecified whether angina present, unspecified whether [place] or transplanted heartTake 1 Tablet (50 mg) by mouth once daily.5Active oxyCODONE (ROXICODONE) 5 mg immediate release tablet Indications:Chronic ulcer of sacral region, unspecified ulcer stage (HC)Take 1 Tablet (5 mg) by mouth every 6 hours if needed for Pain. 16 Tablet 5Active baclofen 10 mg tablet Indications:Chronic ulcer of sacral region, unspecified ulcer stage (HC)Take 1 Tablet (10 mg) by mouth two times daily. 10 Tablet 04/12/2025tive Active Problems ProblemNoted DateDiagnosed DateUrinary tract infection associated with indwelling urethral jtbhycjm82/17/2025hronic ulcer of sacral sutnqb3202/06/2025 Zufwlzbpykvol97/17/2025GERD (gastroesophageal reflux disease)02/06/2025Glaucoma 02/06/2025OSA (obstructive sleep apnea)02/06/2025AD (coronary artery disease) 02/06/2025T2DM (type 2 diabetes mellitus)02/06/20253447Hemcunhoonww10/17/2025ute embolism and thrombosis of other specified deep vein of lower extremity, tylaksyxv98/22/2025Pulmonary kobswhvg17/16/7267Osimavwcras29/10/2019 Atherosclerotic heart disease of [place] coronary artery without angina pectoris 06/29/2018 Overview (02/06/2025): History of [place] Neurogenic bowel05/26/2018Primary hfydnrbqhimv81/05/2015 Overview (02/06/2025): Hypertension (HTN) Essential Benign Last Assessment & Plan: Patient is back on lisinopril, nifedipine and metoprolol with good control on this regimen. Neurogenic zloyrbn0211/18/2003 Overview (02/06/2025): Last Assessment & Plan: Self-caths and has history of frequent UTI. Has a standing Bactrim prescription which he takes whenurine becomes cloudy/malodorous. Urine symptoms started yesterday again with cloudy/malodorous urine, he would like a refill of bactrim. Discussed importance of taking complete courses to avoid antibiotic resistance from discontinuing early. Will plan for a 7 day course to also treat his RLE cellulitis. Multiple qjsmytfta99/11/2003 Resolved Problems ProblemNoted DateDiagnosed DateResolved StpgApiypt24 Vqmubmgwcgkfl13 Encounters DateTypeDepartmentCare SjulUrcxnwbhgrh22/03/2025Lab Requisition [facility] [phone] Carmenza Quiroz NP 06/20/2025Lab Requisition [facility] [phone] Carmenza Quiroz, MACHINIST FIRST CLASS 06/06/2025Lab Requisition [facility] [phone] Carmenza Quiroz, MACHINIST FIRST CLASS 06/02/2025 10:30 AM CSTOffice Visit [facility] [address] [place] [address] Markel Schultz MD Sleep Riguoqf0906/02/20250193Wzlmuv16/07/2025Lab Requisition [facility] [phone] Carmenza Quiroz, MACHINIST FIRST CLASS 05/26/2025Lab Requisition [facility] [phone] Carmenza Quiroz, MACHINIST FIRST CLASS 05/16/2025Lab Requisition [facility] [phone] Carmenza Quiroz, MACHINIST FIRST CLASS 05/02/2025Lab Requisition [facility] [phone] Carmenza Quiroz, MACHINIST FIRST CLASS 04/29/2025Lab Requisition [facility] [address] [place] [address] Carmenza Quiroz, MACHINIST FIRST CLASS 04/29/2025Lab Requisition [facility] [phone] Carmenza Quiroz, MACHINIST FIRST CLASS 04/21/2025Lab Requisition [facility] [phone] Carmenza Quiroz, MACHINIST FIRST CLASS 04/15/2025Lab Requisition [facility] [address] [place] [address] Carmenza Quiroz, MACHINIST FIRST CLASS 04/11/20258756Dsbagl32/17/2025 1:18 AM CDT - 04/12/2025 12:43 PM CDTHospital Encounter [facility] [address] [place] [address] [facility], MD Claudio López, Twyla Bojorquez MD Allergic rhinitis due to other allergic trigger, unspecified seasonality (Primary Dx); Chronic ulcer of sacral region, unspecified ulcer stage (HC); Coronary artery disease, unspecified vessel or lesion type, unspecified whether angina present, unspecified whether [place] or transplanted heart Discharge Disposition: Correction Kctvotfo08/15/2025Lab Requisition [facility] [phone] Bijan Crawford MD from Last 3 Months Immunizations ImmunizationAdministration DatesNext DueCOVID-19 vaccine (Africasana 30mcg/0.3mL) 12YO+ BIVALENT PF, MDV1Influenza, High-dose Inactivated 05/17/2024Influenza, High-dose Quadrivalent Zdunmcpuxst43/24/2023Influenza, IIV3 (Age >=3 years)05/08/2003,05/23/2002Pneumococcal Poly,23-Valent (Pneumovax) 03/21/2019,08/03/2011Pneumococcal conj 13-Valent (Prevnar 13)04/21/2015RSV, Bivalent Vaccine Reconstituted (Abrysvo 120MCG/0.5mL)05/17/2024Td (Age >=7 Years)08/16/1999Tdap04/08/2019,08/21/2009Zoster (Shingrix-RZV, recombinant) 03/09/2018,01/04/2018Zoster (Zostavax-ZVL, live)08/21/2009 Social History Tobacco UseTypesPacks/DayYears UsedDateSmoking Tobacco: NeverPassive Smoke Exposure: NeverSmokeless Tobacco: Never Tobacco Cessation:Counseling Given: Not Answered Alcohol UseStandard Drinks/WeekCommentsNever0 (1 standard drink = 0.6 oz pure alcohol)Social ConnectionsAnswerDate RecordedDo you often feel lonely or isolated from those around you?Financial Resource StrainAnswerDate RecordedDifficulty of Paying Living Qatrtamx760/17/2025Difficulty of Paying Living ExpensesNot on file02/06/2025Food InsecurityAnswerDate RecordedDo you worry your food will run out before you are able to buy more? Transportation NeedsAnswerDate RecordedDoes lack of transportation keep you from medical appointments?Does lack of transportation keep you from work, meetings or getting things that you need?Housing StabilityAnswerDate RecordedWhat is your housing situation today?Interpersonal Safety AnswerDate RecordedAre you being hit, kicked, pushed or yelled at (see row info)?No04/11/2025Interpersonal Safety Abuse 12 - 18Not on file04/11/2025 Interpersonal Safety Ambulatory VulnerabilityNot on file04/11/2025Utilities AnswerDate RecordedDo you have trouble paying for utilities (for example, heat, electricity, water, phone)?Sex and Gender InformationValueDate RecordedSex Assigned at BirthNot on fileLegal LmxDnrg4602/09/2023 1:19 PM CDT Gender IdentityNot on fileSexual OrientationNot on file Last Filed Vital Signs Vital SignReadingTime TakenCommentsBlood Hbgplivi585/7111 10:06 AM PERSONAL DEVELOPMENT COACH Ncphc5476 10:06 AM SRIXacsguoftje95.3 ??C (97.4 ??F)04/12/2025 8:42 AM CDTRespiratory Bkml828304/12/2025 8:42 AM CDTOxygen Ffkwznriiw95%06/02/2025 10:06 AM CSTInhaled Oxygen Concentration--Mldaqi53.3 kg (168 lb 3.2 oz)04/11/2025 6:03 AM HHGFsojeq500.9 cm (6')06/02/2025 10:06 AM CSTBody Mass Index22.8102/06/2025 12:00 PM CDT Plan of Treatment DateTypeDepartmentCare Team (Latest Contact Info)Cpumelxdeam08/22/2025 11:15 AM CSTAppointment [facility] [address] [place] [address] Health MaintenanceDue DateLast DoneCommentsDepression screening for age 12+ 2BMI (ht and wt on same day) for age 18+01/04/1968Hepatitis C screening for age 18-7901/04/1968Colonoscopy through age 75001/03/1995Lipids for age 45-75 1995Medicare Wellness for age 65+2015Influenza Vaccine (#1) 51, 05/08/2003, 05/23/2002COVID-19 vaccine series ( season)61, 12/04/2024, 05/17/2024, Additional history existsTetanus gymrglp25, 08/21/2009, 08/16/1999Zoster (shingles) series for age 50+Nzppwyyux92/17/2018, 01/04/2018, 08/21/2009 Pneumococcal series for age 50+Cmdqlfruz05/29/2019, 04/21/2015, 08/03/2011RSV vaccine for adults or lyiylymuiXbxumsmue18/25/2024Hepatitis B series for 19+Aged OutNo longer eligible based on patient's age to complete this topic Procedures Procedure NamePriorityDate/TimeAssociated DiagnosisCommentsCBC WITH AUTO PWYHIQYHSUHQAjcddaq40/09/2025 7:20 AM PERSONAL DEVELOPMENT COACH Anemia, unspecified Type 2 diabetes mellitus without complications (HC) BASIC METABOLIC JMWJSLbooetn01/09/2025 7:20 AM PERSONAL DEVELOPMENT COACH Anemia, unspecified Type 2 diabetes mellitus without complications (HC) CBC WITH AUTO KVQFHTCBCHJJSqbhchj71/09/2025 7:20 AM PERSONAL DEVELOPMENT COACH Anemia, unspecified Type 2 diabetes mellitus without complications (HC) CBC WITH AUTO JSERZDFNADFXZhlpbgr83/02/2025 7:47 AM PERSONAL DEVELOPMENT COACH Anemia, unspecified Type 2 diabetes mellitus without complications (HC) COMP METABOLIC TSLHHAcseyvd19/02/2025 7:47 AM PERSONAL DEVELOPMENT COACH Anemia, unspecified Type 2 diabetes mellitus without complications (HC) CBC WITH AUTO ORAZWTMNVMUVMsnjcpg55/02/2025 7:47 AM PERSONAL DEVELOPMENT COACH Anemia, unspecified Type 2 diabetes mellitus without complications (HC) CBC WITH AUTO JLBFFXUOXHKTYynnpwv12/18/2025 7:31 AM PERSONAL DEVELOPMENT COACH Anemia, unspecified Type 2 diabetes mellitus without complications (HC) COMP METABOLIC XHHJWNpkzqjt95/18/2025 7:31 AM PERSONAL DEVELOPMENT COACH Anemia, unspecified Type 2 diabetes mellitus without complications (HC) CBC WITH AUTO TKJCDOORTRQAWroxeuu99/18/2025 7:31 AM PERSONAL DEVELOPMENT COACH Anemia, unspecified Type 2 diabetes mellitus without complications (HC) CBC WITH AUTO HUXREETAPDJKOdcntrw42/11/2025 7:52 AM PERSONAL DEVELOPMENT COACH Osteomyelitis, unspecified (HC) COMP METABOLIC SZKAHNfpvqtt69/11/2025 7:52 AM PERSONAL DEVELOPMENT COACH Osteomyelitis, unspecified (HC) CBC WITH AUTO QHUPAQWWCXEQDikzlrc77/11/2025 7:52 AM PERSONAL DEVELOPMENT COACH Osteomyelitis, unspecified (HC) RED CELL LRAJEPYOMXJfujzwu59/04/2025 7:41 AM PERSONAL DEVELOPMENT COACH Osteomyelitis, unspecified (HC) PLATELET LUHMEMPQFwilfss89/04/2025 7:41 AM PERSONAL DEVELOPMENT COACH Osteomyelitis, unspecified (HC) MANUAL WXDOFUAWTFGVPrzncae96/04/2025 7:41 AM PERSONAL DEVELOPMENT COACH Osteomyelitis, unspecified (HC) CBC WITH AUTO FFOKAQGKIAUSBclnike47/04/2025 7:41 AM PERSONAL DEVELOPMENT COACH Osteomyelitis, unspecified (HC) BASIC METABOLIC WAAGHIfwximf00/04/2025 7:41 AM PERSONAL DEVELOPMENT COACH Osteomyelitis, unspecified (HC) CBC WITH AUTO QXZXZCUBRJXTWwdgczx60/04/2025 7:41 AM PERSONAL DEVELOPMENT COACH Osteomyelitis, unspecified (HC) CBC WITH AUTO SZXDQDPUYZRAGaqsjpq79/14/2025 8:55 AM CDT Type 2 diabetes mellitus without complications (HC) Anemia, unspecified BASIC METABOLIC MNMEKUzhkaqu18/14/2025 8:55 AM CDT Type 2 diabetes mellitus without complications (HC) Anemia, unspecified CBC WITH AUTO FFFCGMOVQKCLZlfkiuo95/14/2025 8:55 AM CDT Type 2 diabetes mellitus without complications (HC) Anemia, unspecified CBC WITH AUTO FHEWJTECLCRXQpzodnv65/07/2025 8:06 AM CDT Osteomyelitis, unspecified (HC) Type 2 diabetes mellitus without complications (HC) BASIC METABOLIC YZDYSNhdewtc92/07/2025 8:06 AM CDT Osteomyelitis, unspecified (HC) Type 2 diabetes mellitus without complications (HC) CBC WITH AUTO SSIUKKTWDYVNKnuocfm84/07/2025 8:06 AM CDT Osteomyelitis, unspecified (HC) Type 2 diabetes mellitus without complications (HC) RED CELL AETCPRERCRJbjitqq29/30/2025 7:45 AM CDT Weakness PLATELET WSJLVVXTDmnvohh14/30/2025 7:45 AM CDT Weakness CBC WITH AUTO TFUQKVXJLFSAWbtgiuu84/30/2025 7:45 AM CDT Weakness HEPATIC FUNCTION RZSEDKwfjxkg25/30/2025 7:45 AM CDT Weakness BASIC METABOLIC UAOOORxvbimr55/30/2025 7:45 AM CDT Weakness CBC WITH AUTO OHUOBGYXDLCSSpjwztb72/30/2025 7:45 AM CDT Weakness RED CELL IGQZDCSJSGQgrszgh18/23/2025 8:17 AM CDT Encounter for other specified aftercare Acute kidney failure, unspecified PLATELET WDBMAEFJIbgezgh47/23/2025 8:17 AM CDT Encounter for other specified aftercare Acute kidney failure, unspecified MANUAL GEULIMUJJVEXOygwbqb53/23/2025 8:17 AM CDT Encounter for other specified aftercare Acute kidney failure, unspecified CBC WITH AUTO KJIBMEQPNSIOHxbadmf76/23/2025 8:17 AM CDT Encounter for other specified aftercare Acute kidney failure, unspecified BASIC METABOLIC PRIHIAsmhqsu34/23/2025 8:17 AM CDT Encounter for other specified aftercare Acute kidney failure, unspecified CBC WITH AUTO EWOUVOEIAWPHIumsgfm00/23/2025 8:17 AM CDT Encounter for other specified aftercare Acute kidney failure, unspecified GLUCOSE JOILJKpifb57/20/2025 12:18 PM CDT RED CELL HFUYCXJABDSubwj79/20/2025 7:25 AM CDT BLOOD GAS,VENOUSEarly AM04/12/2025 7:25 AM CDT BASIC METABOLIC PANELEarly AM04/12/2025 7:25 AM CDT CBC W PLT NO DIFFEarly AM04/12/2025 7:25 AM CDT GLUCOSE MQJFCGknfd74/20/2025 6:25 AM CDT GLUCOSE QAPYCOiaeh29/19/2025 10:00 PM CDT ZKZTCGDTIZzvee78/19/2025 8:37 PM CDT GLUCOSE WKFKUKxqjl05/19/2025 4:49 PM CDT RED CELL OEJIQYLSBHFunlq46/19/2025 1:15 PM CDT BLOOD GAS,JCFKYDWviiy65/19/2025 1:15 PM CDT XUUTZTALBZEbbac75/19/2025 1:15 PM CDT KFLSHLGarnh03/19/2025 1:15 PM CDT CBC W PLT NO FXRDGlzmg25/19/2025 1:15 PM CDT GLUCOSE ZSKETPewfy32/19/2025 11:54 AM CDT IR PERCUTANEOUS TUBE NVLNATJauimfa37/19/2025 11:22 AM CDT GLUCOSE USVFCCdqar12/19/2025 6:07 AM CDT GLUCOSE VKWXNQpkgb96/18/2025 9:22 PM CDT IMMUNOFIXATION ELP, ZUTSNPmael31/18/2025 6:56 PM CDT GLUCOSE RMOGONbdkh86/18/2025 4:58 PM CDT GLUCOSE SYQUGJrryy69/18/2025 1:54 PM CDT SCAN CORRESP-EKG ORYKGBS6904/10/2025 11:55 AM CDT SCAN CORRESP-LABORATORY AVNUKSC5504/10/2025 11:55 AM CDT SCAN CORRESP-LABORATORY LCRUYSO5404/10/2025 11:55 AM CDT SCAN CORRESP-THEWVWA9404/10/2025 11:55 AM CDT CBC WITH AUTO DIFFERENTIALEarly AM04/10/2025 7:43 AM CDT BASIC METABOLIC PANELEarly AM04/10/2025 7:43 AM CDT CBC WITH AUTO DIFFERENTIALEarly AM04/10/2025 7:43 AM CDT GLUCOSE DAQAXXmtjv53/17/2025 10:34 PM CDT GLUCOSE KGSRLDmrwr87/17/2025 5:35 PM CDT GLUCOSE JRXLUKvoit43/17/2025 2:16 PM CDT GLUCOSE MJROAUqjdy63/17/2025 6:49 AM CDT IMMUNOFIXATION,XQRMRJTLN10/17/2025 6:45 AM CDT PROTEIN ELP SERUM W BMMJOQFLRG66/17/2025 6:45 AM CDT BBMBOIKWZGPA65/17/2025 6:45 AM CDT IRON PLUS IRON BINDING VQFVROU0804/09/2025 6:45 AM CDT EXTRA TUBE GOLD/PWTQydtp96/17/2025 6:45 AM CDTCBC W PLT NO DIFFEarly AM 04/09/2025 6:45 AM CDT MAGNESIUMEarly AM04/09/2025 6:45 AM CDT CREATININEEarly AM04/09/2025 6:45 AM CDT POTASSIUMEarly AM04/09/2025 6:45 AM CDT SODIUMEarly AM04/09/2025 6:45 AM CDT US RENAL AND BLADDER COMPLETE NAHRJTFKIlrlhlu76/17/2025 3:02 AM CDT URINALYSIS JKFNDFWUIHPNhdul45/17/2025 2:55 AM CDT FRACT EXCR OF SODIUM, MHYYYFizqq27/17/2025 2:55 AM CDT PROTEIN/CREAT RATIO,AHRIGPspgu19/17/2025 2:55 AM CDT UA W/ SEDIMENT EXAM REFLEXED PER JNINDVWOWbwyx52/17/2025 2:55 AM CDT FRACT EXCR OF SODIUM, WSESSYwort13/17/2025 2:04 AM CDT FRACT EXCR OF FFHHXIAsbvj49/17/2025 2:04 AM CDT LACTATE ZUSXTEQNYY13/17/2025 2:04 AM CDT GCLVNDIIABEUXPBMJ31/17/2025 2:04 AM CDT BASIC METABOLIC RQRVOVAPT86/17/2025 2:04 AM CDT RED CELL ELBANMODPXBwzepds26/16/2025 7:47 AM CDT Essential (primary) hypertension Hyperkalemia Other cystostomy status (HC) Disorders of gallbladder, biliary tract and pancreas in diseases classified elsewhere (HC) Acute cholecystitis PLATELET CTZTTXKGUpbwzmx98/16/2025 7:47 AM CDT Essential (primary) hypertension Hyperkalemia Other cystostomy status (HC) Disorders of gallbladder, biliary tract and pancreas in diseases classified elsewhere (HC) Acute cholecystitis CBC WITH AUTO ZHKAQDZZQWVRBbgzohw18/16/2025 7:47 AM CDT Essential (primary) hypertension Hyperkalemia Other cystostomy status (HC) Disorders of gallbladder, biliary tract and pancreas in diseases classified elsewhere (HC) Acute cholecystitis HEPATIC FUNCTION CANTBPzhuwri68/16/2025 7:47 AM CDT Essential (primary) hypertension Hyperkalemia Other cystostomy status (HC) Disorders of gallbladder, biliary tract and pancreas in diseases classified elsewhere (HC) Acute cholecystitis CBC WITH AUTO CXEGUVMFMYARBnnbrjl07/16/2025 7:47 AM CDT Essential (primary) hypertension Hyperkalemia Other cystostomy status (HC) Disorders of gallbladder, biliary tract and pancreas in diseases classified elsewhere (HC) Acute cholecystitis BASIC METABOLIC POGAXCfkkits90/16/2025 7:47 AM CDT Essential (primary) hypertension Hyperkalemia Other cystostomy status (HC) Disorders of gallbladder, biliary tract and pancreas in diseases classified elsewhere (HC) Acute cholecystitis from Last 3 Months Results * (ABNORMAL) CBC WITH AUTO DIFFERENTIAL (07/01/2025 7:20 AM PERSONAL DEVELOPMENT COACH) Only the most recent of11 resultswithin the time period is included. ComponentValueRef RangeTest MethodAnalysis TimePerformed AtPathologist Signature WHITE BLOOD COUNT10.14.5 - 11.0 thou/cu mm07/01/2025 9:12 AM [facility] LABORATORYRED BLOOD COUNT4.854.30 - 5.90 mil/cu mm07/01/2025 9:12 AM [facility] KTKSUHEPTXOUJMKLECVF51.0(L)13.5 - 17.5 g/dL 07/01/2025 9:12 AM [facility] CKRDCZMDYUQNKDPSKJFR42.037.0 - 53.0 %07/01/2025 9:12 AM [facility] KYFXULSPJQMDY04(L)80 - 100 fL07/01/2025 9:12 AM [facility] WFKMPQKUBOSRG66.7(L)26.0 - 34.0 pg07/01/2025 9:12 AM [facility] HIJQCMFDTWSRLQ83.9(L)32.0 - 36.0 g/dL07/01/2025 9:12 AM [facility] RYTTMTMSYFKPE03.0(H)11.5 - 15.5 %07/01/2025 9:12 AM [facility] LABORATORYPLATELET COUNT 623061 - 440 thou/cu mm07/01/2025 9:12 AM [facility] MPV9.96.5 - 11.0 fL07/01/2025 9:12 AM [facility]% NEUT76.7%07/01/2025 9:12 AM [facility]% LYMPH15.7% 07/01/2025 9:12 AM [facility]% MONO5.3%07/01/2025 9:12 AM [facility]% EOS2.2%07/01/2025 9:12 AM [facility]% BASO0.1%07/01/2025 9:12 AM [facility] LABORATORYABSOLUTE NEUTROPHILS7.7(H)1.7 - 7.0 thou/cu mm 07/01/2025 9:12 AM [facility] LABORATORYABSOLUTE LYMPHOCYTES1.6 0.9 - 2.9 thou/cu mm07/01/2025 9:12 AM [facility] ABSOLUTE MONOCYTES0.5<0.9 thou/cu mm07/01/2025 9:12 AM [facility] LABORATORYABSOLUTE EOSINOPHILS0.2<0.5 thou/cu mm07/01/2025 9:12 AM [facility] LABORATORYABSOLUTE BASOPHILS0.0<0.3 thou/cu mm 07/01/2025 9:12 AM [facility] LABORATORYSpecimen (Source) Anatomical Location / LateralityCollection Method / VolumeCollection Time Received TimeBloodBLOOD SPECIMEN / UnknownVenipuncture / Mftstlc7507/01/2025 7:20 AM [facility]07/01/2025 8:50 AM PERSONAL DEVELOPMENT COACH Narrative Authorizing ProviderResult TypeResult StatusCarmenza Quiroz NPHEMATOLOGYFinal ResultPerforming OrganizationAddressCity/State/ZIP CodePhone Number [facility] [address] [place] [address] * (ABNORMAL) BASIC METABOLIC PANEL (07/01/2025 7:20 AM [facility]) Only the most recent of10 resultswithin the time period is included. ComponentValueRef RangeTest MethodAnalysis TimePerformed AtPathologist Signature [id number] - 145 mmol/L109/01/2024 9:31 AM [facility] LABORATORYPOTASSIUM4.13.5 - 5.1 mmol/L109/01/2024 9:31 AM [facility] JZQMLKLIPPBNNTPFUM38122 - 107 mmol/L109/01/2024 9:31 AM [facility] LABORATORYCO2,HLNKX4843 - 29 mmol/L109/01/2024 9:31 AM [facility] LABORATORYANION QEJ425 - [address]/01/2024 9:31 AM [facility] ZPFOWAFCDKSSXSBIY491(H)70 - 99 mg/dL07/01/2025 9:31 AM [facility] LABORATORYCALCIUM9.68.8 - 10.4 mg/dL07/01/2025 9:31 AM [facility] LABORATORYComment: Reference ranges for this test were updated on 05/28/2024 to reflect our healthy population more accurately. Reference range changes are not retroactively applied to results, but previous results using the same methodology can be interpreted in the context of the new reference range. HLU221 - 23 mg/dL07/01/2025 9:31 AM [facility] CREATININE0.65(L)0.70 - 1.20 mg/dL07/01/2025 9:31 AM [facility] LABORATORYBUN/CREAT AHVTR6864 - 9:31 AM [facility] LABORATORYeGFR>90>90 mL/min/1.26h73907/01/2025 9:31 AM [facility] LABORATORYComment:As of 10/05/2021, eGFR is calculated by the CKD-EPI creatinine equation without race adjustment. ??eGFR can be influenced by muscle mass, exercise, and diet. ??The reported eGFR is an estimation onlyand is only applicable if the renal function is stable.Specimen (Source)Anatomical Location / LateralityCollection Method / VolumeCollection TimeReceived TimeBloodBLOOD SPECIMEN / UnknownVenipuncture / Nfvqbje6407/01/2025 7:20 AM CST07/01/2025 8:50 AM PERSONAL DEVELOPMENT COACH Narrative Authorizing ProviderResult TypeResult StatusMarianne R Gabriella NPCHEMISTRYFinal ResultPerforming OrganizationAddressCity/State/ZIP CodePhone Number [facility] [address] [place] [address] * (ABNORMAL) COMP METABOLIC PANEL (06/24/2025 7:47 AM PERSONAL DEVELOPMENT COACH) Only the most recent of3 resultswithin the time period is included. ComponentValueRef RangeTest MethodAnalysis TimePerformed AtPathologist Signature [id number] - 145 mmol/L108/25/2024 9:46 AM [facility] LABORATORYPOTASSIUM3.93.5 - 5.1 mmol/L108/25/2024 9:46 AM [facility] [id number] - 107 mmol/L108/25/2024 9:46 AM [facility] LABORATORYCO2,[id number] - 29 mmol/L108/25/2024 9:46 AM [facility] LABORATORYANION TNV341 - 18108/25/2024 9:46 AM [facility] [id number](H)70 - 99 mg/dL06/24/2025 9:46 AM [facility] LABORATORYCALCIUM9.58.8 - 10.4 mg/dL06/24/2025 9:46 AM [facility] LABORATORYComment: Reference ranges for this test were updated on 05/28/2024 to reflect our healthy population more accurately. Reference range changes are not retroactively applied to results, but previous results using the same methodology can be interpreted in the context of the new reference range. BQC313 - 23 mg/dL06/24/2025 9:46 AM [facility] CREATININE0.65(L)0.70 - 1.20 mg/dL06/24/2025 9:46 AM [facility] LABORATORYBUN/CREAT IJYKM5242 - 9:46 AM [facility] LABORATORYeGFR>90>90 mL/min/1.72r71406/24/2025 9:46 AM [facility] LABORATORYComment:As of 10/05/2021, eGFR is calculated by the CKD-EPI creatinine equation without race adjustment. ??eGFR can be influenced by muscle mass, exercise, and diet. ??The reported eGFR is an estimation onlyand is only applicable if the renal function is stable.ALBUMIN3.4(L)4.0 - 4.9 g/dL06/24/2025 9:46 AM [facility] LABORATORYPROTEIN,TOTAL6.06.0 - 8.0 g/dL 06/24/2025 9:46 AM [facility] LABORATORYBILIRUBIN,TOTAL0.30.0 - 1.2 mg/dL06/24/2025 9:46 AM [facility] LABORATORYALK AFQUJOKXXPI994(H)40 - 129 IU/L108/25/2024 9:46 AM [facility] LABORATORYALT (SGPT)1210 - 50 IU/L108/25/2024 9:46 AM [facility] LABORATORYAST (SGOT)1410 - 50 IU/L108/25/2024 9:46 AM [facility] LABORATORYSpecimen (Source)Anatomical Location / LateralityCollection Method / VolumeCollection TimeReceived TimeBloodBLOOD SPECIMEN / UnknownButterfly / Ikthibt6406/24/2025 7:47 AM CST06/24/2025 9:14 AM PERSONAL DEVELOPMENT COACH Narrative Authorizing ProviderResult TypeResult StatusMarianne R Gabriella NPCHEMISTRYFinal ResultPerforming OrganizationAddressCity/State/ZIP CodePhone Number [facility] [address] [place] [address] * (ABNORMAL) RED CELL MORPHOLOGY (05/27/2025 7:41 AM PERSONAL DEVELOPMENT COACH) Only the most recent of6 resultswithin the time period is included. ComponentValueRef RangeTest MethodAnalysis TimePerformed AtPathologist Signature PFMLGELMUSRJCmg71/04/2025 11:28 AM [facility] LABORATORYRBC COMMENTPresent(A)RBC morphology appears normal, RBC morphology within normal limits for newborns.05/27/2025 11:28 AM [facility] Specimen (Source)Anatomical Location / LateralityCollection Method / Volume Collection TimeReceived TimeBloodBLOOD SPECIMEN / UnknownButterfly / Unknown 05/27/2025 7:41 AM CST05/27/2025 9:36 AM PERSONAL DEVELOPMENT COACH Narrative Authorizing ProviderResult TypeResult StatusGilaianne Orville Quiroz NPHEMATOLOGYFinal ResultPerforming OrganizationAddressCity/State/ZIP CodePhone Number [facility] [address] [place] [address] * PLATELET ESTIMATE (05/27/2025 7:41 AM PERSONAL DEVELOPMENT COACH) Only the most recent of4 resultswithin the time period is included. ComponentValueRef RangeTest MethodAnalysis TimePerformed AtPathologist Signature PLATELET ESTIMATEAdequateAdequate, No ygoibezr65/04/2025 11:28 AM [facility] LABORATORYSpecimen (Source)Anatomical Location / Laterality Collection Method / VolumeCollection TimeReceived TimeBloodBLOOD SPECIMEN / UnknownButterfly / Hsavgsj4205/27/2025 7:41 AM CST05/27/2025 9:36 AM PERSONAL DEVELOPMENT COACH Narrative Authorizing ProviderResult TypeResult StatusCarmenza Gonzalesus NPHEMATOLOGYFinal ResultPerforming OrganizationAddressCity/State/ZIP CodePhone Number [facility] [address] [facility] [address] * (ABNORMAL) MANUAL DIFFERENTIAL (05/27/2025 7:41 AM PERSONAL DEVELOPMENT COACH) Only the most recent of2 resultswithin the time period is included. ComponentValueRef RangeTest MethodAnalysis TimePerformed AtPathologist Signature % NGIFHEOHDPD96.0%05/27/2025 11:28 AM [facility]% KOJYDARXZEV66.0%05/27/2025 11:28 AM [facility]% MONOCYTES7.0%05/27/2025 11:28 AM [facility]% EOSINOPHILS1.0%05/27/2025 11:28 AM [facility]% BASOPHILS0.0%05/27/2025 11:28 AM [facility] NEUTROPHILS ABSOLUTE8.8(H)1.7 - 7.0 thou/cu mm05/27/2025 11:28 AM [facility] LABORATORYLYMPHOCYTES ABSOLUTE2.10.9 - 2.9 thou/cu 05/27/2025 11:28 AM [facility] LABORATORYMONOCYTES ABSOLUTE0.8<0.9 thou/cu 05/27/2025 11:28 AM [facility] LABORATORYEOSINOPHILS ABSOLUTE 0.1<0.5 thou/cu 05/27/2025 11:28 AM [facility] BASOPHILS ABSOLUTE0.0<0.3 thou/cu mm05/27/2025 11:28 AM [facility] LABORATORYSpecimen (Source)Anatomical Location / LateralityCollection Method / VolumeCollection TimeReceived TimeBloodBLOOD SPECIMEN / Unknown Butterfly / Wzqlmld6005/27/2025 7:41 AM CST05/27/2025 9:36 AM PERSONAL DEVELOPMENT COACH Narrative Authorizing ProviderResult TypeResult StatusCarmenza R Gabriella NPHEMATOLOGYFinal ResultPerforming OrganizationAddressCity/State/ZIP CodePhone Number [facility] [address] [place] [address] * (ABNORMAL) HEPATIC FUNCTION PANEL (04/22/2025 7:45 AM CDT) Only the most recent of2 resultswithin the time period is included. ComponentValueRef RangeTest MethodAnalysis TimePerformed AtPathologist Signature ALBUMIN2.9(L)4.0 - 4.9 g/dL04/22/2025 10:25 AM [facility] LABORATORYPROTEIN,TOTAL6.06.0 - 8.0 g/dL04/22/2025 10:25 AM [facility] LABORATORYBILIRUBIN,TOTAL0.30.0 - 1.2 mg/dL04/22/2025 10:25 AM CDT [facility] LABORATORYBILIRUBIN,DIRECT0.10.0 - 0.2 mg/dL04/22/2025 10:25 AM [facility] LABORATORYBILIRUBIN,INDIRECT0.20.2 - 0.8 mg/dL04/22/2025 10:25 AM [facility] LABORATORYALK PHOSPHATASE 226(H)40 - 129 IU/L04/22/2025 10:25 AM [facility] LABORATORYALT (SGPT)3010 - 50 IU/L04/22/2025 10:25 AM [facility] AST (SGOT)2510 - 50 IU/L04/22/2025 10:25 AM [facility] LABORATORYSpecimen (Source)Anatomical Location / LateralityCollection Method / VolumeCollection TimeReceived TimeBloodBLOOD SPECIMEN / UnknownButterfly / Wizlvbj1804/22/2025 7:45 AM CDT04/22/2025 8:45 AM CDT Narrative Authorizing ProviderResult TypeResult StatusCarmenza Quiroz NPCHEMISTRYFinal ResultPerforming OrganizationAddressCity/State/ZIP CodePhone Number [facility] [address] [place] [address] * (ABNORMAL) GLUCOSE METER (04/12/2025 12:18 PM CDT) Only the most recent of13 resultswithin the time period is included. ComponentValueRef RangeTest MethodAnalysis TimePerformed AtPathologist Signature GLUCOSE YGMRE402(H)65 - 100 mg/dL04/12/2025 12:20 PM [facility] LABORATORYSpecimen (Source)Anatomical Location / Laterality Collection Method / VolumeCollection TimeReceived TimeBloodBLOOD SPECIMEN / Cmdmvuo0004/12/2025 12:18 PM CDT04/12/2025 12:20 PM CDT Narrative Authorizing ProviderResult TypeResult StatusTwyla Snyder MDCHEMISTRY Final ResultPerforming OrganizationAddressCity/State/ZIP CodePhone Number [facility] [address] [place] [address], * (ABNORMAL) CBC no diff AM (04/12/2025 7:25 AM CDT) Only the most recent of3 resultswithin the time period is included. ComponentValueRef RangeTest MethodAnalysis TimePerformed AtPathologist Signature WHITE BLOOD COUNT9.14.5 - 11.0 thou/cu mm04/12/2025 10:18 AM [facility] LABORATORYRED BLOOD COUNT3.33(L)4.30 - 5.90 mil/cu mm 04/12/2025 10:18 AM [facility] LABORATORYHEMOGLOBIN8.3 (L)13.5 - 17.5 g/dL04/12/2025 10:18 AM [facility] KEHMLAEMDPXAJCWSEQJX58.5(L)37.0 - 53.0 %04/12/2025 10:18 AM [facility] DGAUICFMRBSHD5048 - 100 fL04/12/2025 10:18 AM [facility] TDRRCZGCAFOXY77.9(L)26.0 - 34.0 pg04/12/2025 10:18 AM [facility] HKHSPORRTCXKTX45.1(L)32.0 - 36.0 g/dL 04/12/2025 10:18 AM [facility] BIYMEMOZAHSKH70.1(H)11.5 - 15.5 %04/12/2025 10:[address] [facility] PLATELET CCAMP834550 - 440 thou/cu mm04/12/2025 10:18 AM [facility] LABORATORYMPV9.06.5 - 11.0 fL04/12/2025 10:18 AM [facility] LABORATORYNRBC0.2%04/12/2025 10:18 AM [facility] LABORATORYABS NRBC0.0thou /cu mm04/12/2025 10:[address] [facility] LABORATORYSpecimen (Source)Anatomical Location / LateralityCollection Method / VolumeCollection TimeReceived TimeBloodBLOOD SPECIMEN / UnknownButterfly / Czwovzw1604/12/2025 7:25 AM CDT04/12/2025 7:47 AM CDT Narrative Authorizing ProviderResult TypeResult StatusTwyla Snyder MDHEMATOLOGY Final ResultPerforming OrganizationAddressCity/State/ZIP CodePhone Number [facility] [address] [place] [address], * (ABNORMAL) BLOOD GAS,VENOUS (04/12/2025 7:25 AM CDT) Only the most recent of2 resultswithin the time period is included. ComponentValueRef RangeTest MethodAnalysis TimePerformed AtPathologist Signature PH, VENOUS7.377.32 - 7.43004/12/2025 7:39 AM [facility] LABORATORYPCO2, HNFRAV78(L)41 - 51 mmHg04/12/2025 7:39 AM [facility] LABORATORYPO2, GVWQCD75(H)35 - 40 mmHg04/12/2025 7:39 AM CDT [facility] LABORATORYHCO3,JJRJML31(L)22 - 29 mmol/L 04/12/2025 7:[address] [facility] LABORATORYBASE EXCESS, VENOUS, POCT-4.8(L)-2.0 - 3.009 7:39 AM [facility] LABORATORYO2 SATURATION, ELUOZA39(H)70 - 75 %04/12/2025 7:39 AM CDT [facility] LABORATORYPATIENT CEWTYPPXQEG98.0Degrees C 04/12/2025 7:39 AM [facility]-CENTRAL LABORATORYSpecimen (Source)Anatomical Location / LateralityCollection Method / VolumeCollection TimeReceived TimeBloodBLOOD SPECIMEN / UnknownButterfly / Flyvcqv7504/12/2025 7:25 AM CDT04/12/2025 7:34 AM CDT Narrative Authorizing ProviderResult TypeResult StatusTwyla Snyder MDCHEMISTRY Final ResultPerforming OrganizationAddressCity/State/ZIP CodePhone Number [facility] [address] [place] [address], [place] * POTASSIUM (04/11/2025 8:37 PM CDT) Only the most recent of2 resultswithin the time period is included. ComponentValueRef RangeTest MethodAnalysis TimePerformed AtPathologist Signature POTASSIUM4.23.5 - 5.1 mmol/L04/11/2025 9:05 PM [facility] LABORATORYSpecimen (Source)Anatomical Location / LateralityCollection Method / VolumeCollection TimeReceived TimeBloodBLOOD SPECIMEN / Unknown Venipuncture / Sbnczmj0204/11/2025 8:37 PM CDT04/11/2025 8:49 PM CDT Narrative Authorizing ProviderResult TypeResult StatusTwyla Snyder MDCHEMISTRY Final ResultPerforming OrganizationAddressCity/State/ZIP CodePhone Number [facility] [address] [place] [address], [place] * SODIUM (04/11/2025 1:15 PM CDT) Only the most recent of2 resultswithin the time period is included. ComponentValueRef RangeTest MethodAnalysis TimePerformed AtPathologist Signature BUEHPT521553 - 145 mmol/L04/11/2025 6:22 PM [facility] LABORATORYSpecimen (Source)Anatomical Location / LateralityCollection Method / VolumeCollection TimeReceived TimeBloodBLOOD SPECIMEN / UnknownButterfly / Lqrjcfi1504/11/2025 1:15 PM CDT04/11/2025 1:23 PM CDT Narrative Authorizing ProviderResult TypeResult StatusTwyla Snyder MDCHEMISTRY Final ResultPerforming OrganizationAddressty/State/ZIP CodePhone Number [facility] [address] [place] [place] [phone], [place] * (ABNORMAL) CREATININE (04/11/2025 1:15 PM CDT) Only the most recent of2 resultswithin the time period is included. ComponentValueRef RangeTest MethodAnalysis TimePerformed AtPathologist Signature eGFR55(L)>90 mL/min/1.79l79704/11/2025 6:22 PM [facility]-CENTRAL LABORATORYComment:As of 10/05/2021, eGFR is calculated by the CKD-EPI creatinine equation without race adjustment. ??eGFR can be influenced by muscle mass, exercise, and diet. ??The reported eGFR is an estimation onlyand is only applicable if the renal function is stable.CREATININE1.35(H)0.70 - 1.20 mg/dL 04/11/2025 6:22 PM [facility]-CENTRAL LABORATORYSpecimen (Source)Anatomical Location / LateralityCollection Method / VolumeCollection TimeReceived TimeBloodBLOOD SPECIMEN / UnknownButterfly / Hyikojz7704/11/2025 1:15 PM CDT04/11/2025 1:23 PM CDT Narrative Authorizing ProviderResult TypeResult StatusTwyla Snyder MDCHEMISTRY Final ResultPerforming OrganizationAddressCity/State/ZIP CodePhone Number [facility]-CENTRAL LABORATORY [address] [place] [address], * IR PERCUTANEOUS TUBE CHANGE (04/11/2025 11:22 AM CDT)Anatomical Region LateralityModalityX-Ray AngiographySpecimen (Source)Anatomical Location / LateralityCollection Method / VolumeCollection TimeReceived Time Narrative 04/11/2025 11:31 AM CDT Procedure: 1. Percutaneous cholangiogram, existing access 2. Cholecystostomy tube exchange Indication: routine exchange Comparison: None Interventionalist: Daphney Avendano MD Fluoroscopy time: 1 minutes. Reference air kerma: 5 mGy. Estimated Blood Loss: <10 mL. Medications: midazolam 1 mg IV Contrast: ??Omnipaque 350, 10 mL Sedation: Minimal Sedation Conscious sedation: The one drug analgesia was supervised by myself and the patient's vital signs were actively monitored by an independent registered nurse. Complications: None immediate. Technique: The procedure, risks, and alternative therapies were discussed in detail, and written informed consent was obtained. A time out was performed to verify correct patient and procedure. ??One drug sedation was administered as above. The [...] over this wire for a new 14 Armenian all purpose drain. The pig tail was [...] was uneventfully exchanged for a new 14 Armenian all purpose drain under fluoroscopic guidance. Completion cholangiogram demonstrated new catheter in appropriate position. Impression: 1. Successful fluoroscopically guided exchange of cholecystostomy tube. The cystic duct is patent. Capping trial could be considered. Authorizing ProviderResult TypeResult StatusTwyla Snyder MDIRFinal Result * (ABNORMAL) IMMUNOFIXATION ELP, URINE (04/10/2025 6:56 PM CDT)ComponentValueRef RangeTest MethodAnalysis TimePerformed AtPathologist SignatureIFIX INTERP,URINEImmunofixation on urine shows no monoclonal protein detected and no free light chains detected. Interpreted and electronically signed by: Bettie Valdez MD 04/15/2025 10:28 AM [facility]-CENTRAL LABORATORYPROTEIN QUANT,RAND URINE21(H)1 - 14 mg/dL04/15/2025 10:28 AM [facility]-CENTRAL LABORATORYSpecimen (Source)Anatomical Location / Laterality Collection Method / VolumeCollection TimeReceived TimeUrineURINE SPECIMEN / UnknownNon-Blood / Pjdjdns1504/10/2025 6:56 PM CDT04/10/2025 7:03 PM CDT Narrative Authorizing ProviderResult TypeResult StatusErin Monserrat Snyder MDURINEFinal ResultPerforming OrganizationAddressCity/State/ZIP CodePhone Number [facility]-CENTRAL LAB[facility]ORY [address] [place] [address], * SCAN CORRESP-LABORATORY RESULTS (04/10/2025 11:55 AM CDT) Only the most recent of2 resultswithin the time period is included. Narrative 04/10/2025 11:55 AM CDT Ordered by an unspecified provider. Authorizing ProviderResult TypeResult StatusOther Clinical StaffOTHERFinal Result * SCAN CORRESP-EKG RESULTS (04/10/2025 11:55 AM CDT) Narrative 04/10/2025 11:55 AM CDT Ordered by an unspecified provider. Authorizing ProviderResult TypeResult StatusOther Clinical StaffOTHERFinal Result * SCAN CORRESP-IMAGING (04/10/2025 11:55 AM CDT)Anatomical RegionLaterality ModalityOther Narrative 04/10/2025 11:55 AM CDT Ordered by an unspecified provider. Authorizing ProviderResult TypeResult StatusOther Clinical StaffOTHERFinal Result * (ABNORMAL) PROTEIN ELP SERUM W REFLEX (04/09/2025 6:45 AM CDT)ComponentValue Ref RangeTest MethodAnalysis TimePerformed AtPathologist SignatureELP,ALBUMIN 2.00(L)3.31 - 5.31 g/dL04/11/2025 4:29 PM [facility]-CENTRAL LABORATORYELP,ALPHA 10.57(H)0.19 - 0.42 g/dL04/11/2025 4:29 PM [facility]-CENTRAL LABORATORYELP,ALPHA 20.920.44 - 1.03 g/dL04/11/2025 4:29 PM [facility]-CENTRAL LABORATORYELP,GAMMA0.48(L)0.59 - 1.46 g/dL04/11/2025 4:29 PM [facility]-CENTRAL LABORATORY ELP,BETA0.830.52 - 1.05 g/dL04/11/2025 4:29 PM [facility]- CENTRAL LABORATORYMONOCLONAL PEAK 10.04<=0.00 g/dL04/11/2025 4:29 PM [facility]-CENTRAL LABORATORYELP INTERP,SERUMTrace monoclonal protein detected in gamma region, confirmed by immunofixation. Interpreted and electronically signed by: Bettie Valdez MD 04/11/2025 4:29 PM [facility] LABORATORYPROTEIN,TOTAL 4.8(L)6.0 - 8.0 g/dL04/11/2025 4:29 PM [facility] LABORATORYSpecimen (Source)Anatomical Location / LateralityCollection Method / VolumeCollection TimeReceived TimeBloodBLOOD SPECIMEN / UnknownExtra Tube / Xeebsxp6704/09/2025 6:45 AM CDT04/09/2025 7:09 AM CDT Narrative Authorizing ProviderResult TypeResult StatusTwyla Snyder MDCHEMISTRY Final ResultPerforming OrganizationAddressCity/State/ZIP CodePhone Number [facility] [address] [address], [place] * EXTRA TUBE GOLD/SST (04/09/2025 6:45 AM CDT)Specimen (Source)Anatomical Location / LateralityCollection Method / VolumeCollection TimeReceived Time BloodBLOOD SPECIMEN / UnknownExtra Tube / Jmlrqos3104/09/2025 6:45 AM CDT 04/09/2025 7:09 AM CDT Narrative Authorizing ProviderResult TypeResult StatusTwyla Silva RNLABORATORYFinal ResultPerforming OrganizationAddressCity/State/ZIP CodePhone Number [facility] [address] [address], [place] * (ABNORMAL) IMMUNOFIXATION,SERUM (04/09/2025 6:45 AM CDT)ComponentValueRef RangeTest MethodAnalysis TimePerformed AtPathologist AnboahtnnXYE190.26(L) 610.30 - 1,616.00 mg/dL04/11/2025 4:29 PM [facility] RLGLIINXNYMVJ073.9284.50 - 499.00 mg/dL04/11/2025 4:29 PM [facility] QCKLDLAPSHREX18.5235.00 - 242.00 mg/dL04/11/2025 4:29 PM [facility] LABORATORYIFIX INTERP,SERUMImmunofixation on serum shows faint complete monoclonal protein IgG kappa with no free light chainsdetected. The finding of a monoclonal protein may be associated with a lymphoproliferative or plasma cell disorder. Consider serum free light chains, urine protein electrophoresis and urine immunofixation to further evaluate, if not already performed. Interpreted and electronically signed by: Bettie Valdez MD 04/11/2025 4:29 PM [facility] LABORATORYSpecimen (Source)Anatomical Location / LateralityCollection Method / VolumeCollection TimeReceived TimeBloodBLOOD SPECIMEN / UnknownExtra Tube / Oclvvei2404/09/2025 6:45 AM CDT04/09/2025 7:09 AM CDT Narrative Authorizing ProviderResult TypeResult StatuswTyla Snyder MDCHEMISTRY Final ResultPerforming OrganizationAddressCity/State/ZIP CodePhone Number [facility] [address] [address], * (ABNORMAL) IRON PLUS IRON BINDING CAP (04/09/2025 6:45 AM CDT)ComponentValue Ref RangeTest MethodAnalysis TimePerformed AtPathologist RyrixyfaaAFTH78(L)61 - 157 ug/dL04/09/2025 1:01 PM [facility] UIBC (UNSATURATED)896369 - 347 ug/dL04/09/2025 1:01 PM [facility] LABORATORYIRON BINDING HYZSKYNM915(L)250 - 400 ug/dL 04/09/2025 1:01 PM [facility] LABORATORYIRON,% NAIJRRMKPA22(L)14 - 50 %04/09/2025 1:01 PM [facility] LABORATORYSpecimen (Source)Anatomical Location / LateralityCollection Method / VolumeCollection TimeReceived TimeBloodBLOOD SPECIMEN / UnknownVenipuncture / Paqtaof4204/09/2025 6:45 AM CDT04/09/2025 7:06 AM CDT Narrative Authorizing ProviderResult TypeResult StatusTwyla Snyder MDCHEMISTRY Final ResultPerforming OrganizationAddressCity/State/ZIP CodePhone Number [facility]-CENTRAL LAB[facility]ORY [address] [address], [place] * MAGNESIUM (04/09/2025 6:45 AM CDT)ComponentValueRef RangeTest MethodAnalysis TimePerformed AtPathologist SignatureMAGNESIUM1.71.6 - 2.4 mg/dL04/09/2025 7:34 AM [facility]-CENTRAL LABORATORYSpecimen (Source) Anatomical Location / LateralityCollection Method / VolumeCollection Time Received TimeBloodBLOOD SPECIMEN / UnknownVenipuncture / Rdhylrd0104/09/2025 6:45 AM CDT04/09/2025 7:06 AM CDT Narrative Authorizing ProviderResult TypeResult StatusElder Ren Morenokyra MDCHEMISTRYFinal ResultPerforming OrganizationAddressCity/State/ZIP CodePhone Number [facility]EN[facility]AL LAB[facility]ORY [address] [address], [place] * (ABNORMAL) FERRITIN (04/09/2025 6:45 AM CDT)ComponentValueRef RangeTest Method Analysis TimePerformed AtPathologist LfuxcekhnUWSKXCVH389.0(H)30.0 - 400.0 ng/mL04/09/2025 1:01 PM [facility]-CENTRAL LABORATORYSpecimen (Source)Anatomical Location / LateralityCollection Method / VolumeCollection TimeReceived TimeBloodBLOOD SPECIMEN / UnknownVenipuncture / Rrbqgyo4504/09/2025 6:45 AM CDT04/09/2025 7:06 AM CDT Narrative Authorizing ProviderResult TypeResult StatusTwyla Snyder MDCHEMISTRY Final ResultPerforming OrganizationAddressCity/State/ZIP CodePhone Number [facility] [address] [address], [place] * US RENAL AND BLADDER COMPLETE PORTABLE (04/09/2025 3:02 AM CDT)Anatomical RegionLateralityModalityAbdomen, KIDNEYSUltrasoundSpecimen (Source)Anatomical Location / LateralityCollection Method / VolumeCollection TimeReceived Time 04/09/2025 3:31 AM CDT Impressions 04/09/2025 3:31 [...] well seen due to Eason catheter placement. ?? Procedure Note Bettie Walker MD - 04/09/2025 [...] MD @ 04/09/2025 3:31:27 AM (Electronically Signed) Authorizing ProviderResult TypeResult StatusMicamor Roach MDUSFinal Result * FRACT EXCR OF SODIUM, URINE (04/09/2025 2:55 AM CDT)ComponentValueRef Range Test MethodAnalysis TimePerformed AtPathologist SignatureSODIUM,RAW URINE48 mmol/L04/09/2025 3:33 AM [facility]-CENTRAL LABORATORYSODIUM 137mmol/L04/09/2025 3:33 AM [facility] LAB[facility]ORY CREATININE RAW ZJPYQ06vm/dL04/09/2025 3:33 AM [facility]- CENTRAL LABORATORYCREATININE2.33mg/dL04/09/2025 3:33 AM [facility]-CENTRAL LABORATORYFRACT EX OF SODIUM0.9%04/09/2025 3:33 AM CDT [facility] LABOR[facility]YSpecimen (Source)Anatomical Location / LateralityCollection Method / VolumeCollection TimeReceived Time UrineURINE SPECIMEN / UnknownNon-Blood / Mrsxojb1404/09/2025 2:55 AM CDT 04/09/2025 3:11 AM CDT Narrative [facility]AL [facility] - 04/09/2025 3:33 AM CDT Suggests Pre-Renal Azotemia Authorizing ProviderResult TypeResult StatusMicamor Roach MDURINEFinal ResultPerforming OrganizationAddressCity/State/ZIP CodePhone Number [facility] [address] [place] [address], * (ABNORMAL) URINALYSIS MICROSCOPIC (04/09/2025 2:55 AM CDT)ComponentValueRef RangeTest MethodAnalysis TimePerformed AtPathologist SignatureRBC3-5(A)0-2, None Seen /HPF04/09/2025 3:20 AM [facility] ZMMWONIRUIKPX60-248(A)0-2, 3-5, None Seen /HPF04/09/2025 3:20 AM [facility] LABORATORYBACTERIANone SeenNone Seen, Rare, Few Bacteria/HPF04/09/2025 3:20 AM [facility] LABORATORY EPITHELIAL CELLSNone SeenNone Seen, Few Epi/HPF04/09/2025 3:20 AM [facility]IC[facility]TR[facility] LABORATORYHYALINE CASTS3-50-2, 3-5 /LPF04/09/2025 3:[address] [facility] LABORATORYSpecimen (Source) Anatomical Location / LateralityCollection Method / VolumeCollection Time Received TimeUrineURINE SPECIMEN / UnknownNon-Blood / Djshjoh2104/09/2025 2:55 AM CDT04/09/2025 3:11 AM CDT Narrative Authorizing ProviderResult TypeResult StatusMichael Ren Roach MDURINEFinal ResultPerforming OrganizationAddressCity/State/ZIP CodePhone Number [facility] [address] [place] [phone], * (ABNORMAL) PROTEIN/CREAT RATIO,URINE (04/09/2025 2:55 AM CDT)ComponentValueRef RangeTest MethodAnalysis TimePerformed AtPathologist SignaturePROTEIN QUANT,RAND URINE23(H)1 - 14 mg/dL04/09/2025 3:33 AM [facility] LABORATORYCREAT,RANDOM URINE87.839.0 - 259.0 mg/dL 04/09/2025 3:33 AM [facility] LABORATORYPROT/CREAT RATIO,UR0.3(H)<0. 3:[address] [facility] LABORATORYSpecimen (Source)Anatomical Location / LateralityCollection Method / VolumeCollection TimeReceived TimeUrineURINE SPECIMEN / UnknownNon-Blood / Sqqxegs9604/09/2025 2:55 AM CDT04/09/2025 3:11 AM CDT Narrative Authorizing ProviderResult TypeResult StatusMichael Ren Roach MDURINEFinal ResultPerforming OrganizationAddressCity/State/ZIP CodePhone Number [facility] [address] [place] [address], [place] * (ABNORMAL) UA W/ SEDIMENT EXAM REFLEXED PER CRITERIA (04/09/2025 2:55 AM CDT) ComponentValueRef RangeTest MethodAnalysis TimePerformed AtPathologist SignatureCOLORYellowYellow Color04/09/2025 3:20 AM [facility] LABORATORYCLARITYClearClear Rvbeago8004/09/2025 3:20 AM CDT [facility]YSPECIFIC GRAVITY,URINE1.0101.010, 1.015, 1.020, 1.2152404/09/2025 3:20 AM [facility] LABORATORYPH,URINE6.06.0, 7.0, 8.0, 5.5, 6.5, 7.5, 8.509 3:20 AM CDT [facility] LABOR[facility]ORYUROBILINOGEN,QUALITATIVENormal Normal EU/dl04/09/2025 3:20 AM [facility] PROTEIN, URINETrace(A)Negative mg/dL04/09/2025 3:20 AM [facility] LABORATORYGLUCOSE, URINENegativeNegative mg/dL04/09/2025 3:20 AM [facility] LABORATORYKETONES,URINENegative Negative mg/dL04/09/2025 3:20 AM [facility] LABORATORYBILIRUBIN,MOKXEStjvquerPevkenfd49/17/2025 3:20 AM [facility]TRAL LABORATORYOCCULT BLOOD,URINESmall(A)Qqsilzcp03/17/2025 3:20 AM [facility]TRAL LABORATORYNITRITENegativeNegative 04/09/2025 3:20 AM [facility] LABORATORYLEUKOCYTE ESTERASELarge(A)Gqdxcvbc09/17/2025 3:20 AM [facility]TRAL LABORATORYSpecimen (Source)Anatomical Location / LateralityCollection Method / VolumeCollection TimeReceived TimeUrineURINE SPECIMEN / UnknownNon-Blood / Fkygxpd8604/09/2025 2:55 AM CDT04/09/2025 3:11 AM CDT Narrative Authorizing ProviderResult TypeResult StatusMicamor Roach MDURINEFinal ResultPerforming OrganizationAddressCity/State/ZIP CodePhone Number [facility] [address] [address], [place] * (ABNORMAL) FRACT EXCR OF SODIUM, SERUM (04/09/2025 2:04 AM CDT)ComponentValue Ref RangeTest MethodAnalysis TimePerformed AtPathologist VsajiyyfgJQCGTW664968 - 145 mmol/L04/09/2025 3:33 AM [facility]-CENTRAL LABORATORY CREATININE2.33(H)0.70 - 1.20 mg/dL04/09/2025 3:33 AM [facility] LABORAT[facility]-CENTRAL QVHDGELGIVsWPK47(L)>90 mL/min/1.57e83404/09/2025 3:33 AM CDT [facility] LABOR[facility]-CENTRAL LABORATORYComment: As of 10/05/2021, eGFR is calculated by the CKD-EPI creatinine equation without race adjustment. ??eGFR can be influenced by muscle mass, exercise, and diet. ??The reported eGFR is an estimation onlyand is only applicable if the renal function is stable. As of 10/05/2021, eGFR is calculated by the CKD-EPI creatinine equation without race adjustment. ??eGFR can be influenced by muscle mass, exercise, and diet. ??The reported eGFR is an estimation onlyand is only applicable if the renal function is stable. Specimen (Source)Anatomical Location / LateralityCollection Method / Volume Collection TimeReceived TimeBloodBLOOD SPECIMEN / UnknownVenipuncture / Unknown 04/09/2025 2:04 AM CDT04/09/2025 2:10 AM CDT Narrative Authorizing ProviderResult TypeResult StatusElder Roach MDCHEMISTRYFinal ResultPerforming OrganizationAddressCity/State/ZIP CodePhone Number [facility] [address] [place] [address], [place] * LACTATE VENOUS (04/09/2025 2:04 AM CDT)ComponentValueRef RangeTest Method Analysis TimePerformed AtPathologist SignatureLACTATE,VENOUS1.00.5 - 2.0 mmol/L04/09/2025 2:38 AM [facility] LABORATORY Specimen (Source)Anatomical Location / LateralityCollection Method / Volume Collection TimeReceived TimeBloodBLOOD SPECIMEN / UnknownVenipuncture / Aihoioc9604/09/2025 2:04 AM CDT04/09/2025 2:10 AM CDT Narrative Authorizing ProviderResult TypeResult StatusMichaesergey Roach MDCHEMISTRYFinal ResultPerforming OrganizationAddressCity/State/ZIP CodePhone Number [facility] [address] [place] [address], * PROCALCITONIN (04/09/2025 2:04 AM CDT)ComponentValueRef RangeTest Method Analysis TimePerformed AtPathologist SignaturePROCALCITONIN0.40ng/ml04/09/2025 2:42 AM [facility]-CENTRAL LABORATORYSpecimen (Source) Anatomical Location / LateralityCollection Method / VolumeCollection Time Received TimeBloodBLOOD SPECIMEN / UnknownVenipuncture / Sigwqxf2904/09/2025 2:04 AM CDT04/09/2025 2:10 AM CDT Narrative [facility] - 04/09/2025 2:42 AM CDT Procalcitonin for initial assessment of Lower Respiratory Tract Infection: Results Interpretation <0.10 ng/mL Antibiotic therapy strongly discoraged. Indicates absent of bacterial infection. * 0.10 - 0.25 ng/mL Antibiotic therapy discouraged. ??Bacterial infection unlikely. * 0.26 - 0.50 ng/mL Antibiotic therapy encouraged. ??Bacterial infection possible. >0.50 ng/mL Antibiotic therapy strongly encouraged. Suggestive of presence of bacterial infection. *Antibiotic therapy should be considered regardless of PCT result if the patient is clinically unstable, is at high risk for adverse outcome, has strong evidence of bacterial pathogen, or the clinical context indicates antibiotic therapy is warranted. ??If antibiotics are withheld, reassess if symptoms persist/worsen and/or repeat PCT measurement within 6-24 hours. ? In order to assess treatment success and to support a decision to discontinue antibiotic therapy,follow up samples should be tested once every 1-2 days, based upon physician discretion taking intoaccount patient's evolution and progress. Procalcitonin for initial [...] exclude an infection, on account of localized infections(without systemic signs) which can be associated with such low concentrations, or a systemic infection in its initial stages(< 6 hours). Furthermore, increased procalcitonin can occur without infection. PCT concentrations between 0.5 and 2.0 ng/mL should be interpreted taking into account the patient's history. It is recommended to retest PCT within 6-24 hours if any concentrations < 2 ng/mL are obtained. Authorizing ProviderResult TypeResult StatusMichael Ren Roach [facility] OUTSFinal ResultPerforming OrganizationAddressCity/State/ZIP CodePhone Number [facility] [address] [address], from Last 3 Months Additional Health Concerns InfectionOnset DateLast IndicatedMDRO Clearance Comment:Infection Control Note: Hx of ESBL, surveillance criteria met, no need for further testing or isolation precautions. Do not delete or resolve the Infection Flag. Anecdotal +ESBL MRSA Comment:Order Contact Precautions. Nares surveillance cultures [...] 12 months since positive culture): resides in acute/alf care, receiving hemodialysis, has chronic open wounds/skin damage, has long-term percutaneous indwelling medical devices Exclusions for nares collection (if <12 months since positive culture) include all of the previous exclusions plus patients on antibiotics 7 days prior to collection 509/ Insurance Advance Directives TypeDate RecordedPatient RepresentativeExplanationPOLST01/26/2023 * DNR (Latest Code Status on File) Date ActivatedDate InactivatedComments04/11/2025 1:46 PM04/12/2025 3:08 PMQuestion AnswerCommentsCode Status Discussion:* Reviewed Preferences * Full Code Date ActivatedDate InactivatedComments04/09/2025 1:43 AM04/11/2025 1:46 PMQuestion AnswerCommentsCode Status Discussion:* Reviewed Preferences * Full Code Date ActivatedDate InactivatedComments02/06/2025 3:46 AM02/07/2025 7:38 PMQuestion AnswerCommentsCode Status Discussion:* Reviewed Preferences * Full Code Date ActivatedDate InactivatedComments02/06/2025 12:37 AM02/06/2025 3:46 AM QuestionAnswerCommentsCode Status Discussion:* Unable to Assess Preferences, Provider to review later Care Teams Team MemberRelationshipSpecialtyStart DateEnd Bijan Crawford MD [address] [facility] [address] [place], [place] [phone] PCP - GeneralFamily Practice04/09/25 Birdie Taveras RN [address] [facility] [address] [place], [place] [phone] Millinery Copyist - [facility]SA[facility]egistered Nurse07/24/23 Karrie Singer, RN [address] [facility] [address] [place], [place] [phone] Millinery Copyist - [facility]istered Nurse07/24/23
--- OUTSIDE RECORDS SUMMARY | 2025-07-03 00:17 | XMS_ITS | Encounter Summary ---
Author Organization [place] Address [facility] [facility] [place] [address] Care Team Providers Care Customer Sales Distributor Name Role Phone Bijan Crawford Primary Care Provider [phone] Rl Evans MD Unavailable [phone] Encounter Details DateTypeDepartmentCare Team (Latest Contact Info)Mlujqcwcjqk15/04/2025Telephone [facility] [place] [address] [place] [address] Rl Evans MD [address] [facility], [facility] [address] [place] [address] Social History Tobacco UseTypesPacks/DayYears UsedDateSmoking Tobacco: FormerCigarettesQuit: 07/24/1971Smokeless Tobacco: NeverSex and Gender InformationValueDate Recorded Sex Assigned at BirthNot on fileLegal UoxTexp0908/07/2024 2:17 PM CSTGender IdentityNot on fileSexual OrientationNot on filedocumented as of this encounter Miscellaneous Notes * Telephone Encounter - Pedro Muñoz - 05/27/2025 8:17 AM CST Spoke w patient regarding 05/26/25 no show appt w Dr. Evans - Per patient - provider informed that appt was not needed. 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
--- OUTSIDE RECORDS SUMMARY | 2025-07-03 00:17 | XMS_ITS | Encounter Summary ---
Author Organization [facility] Address [address] [place] [address] Care Team Providers Care Development Chemist Name Role Phone Jeff Reyes M.D. Primary Care Provider [phone] Reason for Referral * Outpatient (Routine) - AuthorizedSpecialtyDiagnoses / ProceduresReferred By ContactReferred To Contact Jeff Reyes M.D. [address] [place] [address] Phone: tel: fax: [facility] Region Referral IDStatusReasonStart DateExpiration DateVisits RequestedVisits [id number]/4/20255/ Scheduling Instructions Nurse AWV Do not schedule prior to due date to ensure insurance coverage Visit: Medicare Annual Wellness due on 02/07/2025. VISUALIZATION DEVELOPER Encounter Details DateTypeDepartmentCare Team (Latest Contact Info)Bcoqoqjcjdc29/04/2025Orders Only [facility] PCP TH MNT Jeff Reyes M.D. [address] [place] [address] Social History Tobacco UseTypesPacks/DayYears UsedDateSmoking Tobacco: ZagfkeWjetigimcs1Rxbv: 1978Passive Smoke Exposure: NeverAlcohol UseStandard Drinks/WeekCommentsNot Currently1 (1 standard drink = 0.6 oz pure alcohol)Humiliation, Afraid, Rape, and Kick questionnaireAnswerDate RecordedWithin the last year, have you been afraid of your partner or ex-partner?Patient unable to vpvrwc0602/27/2025Within the last year, have you been humiliated or emotionally abused in other ways by your partner or ex-partner?Patient unable to yercug4802/27/2025Within the last year, have you been kicked, hit, slapped, or otherwise physically hurt by your partner or ex-partner?Patient unable to ssjdbh8302/27/2025Within the last year, have you been raped or forced to have any kind of sexual activity by your part ner or ex-partner?Patient unable to sgixbi3602/27/2025Hunger Vital SignAnswerDate RecordedWithin the past 12 months, you worried that your food would run out before you got the money to buymore.Patient unable to aupwkk1802/27/2025Within the past 12 months, the food you bought just didn't last and you didn't have money to get more.Patient unable to hqwxgr7702/27/2025PRAPARE - TransportationAnswerDate RecordedIn the past 12 months, has lack of transportation kept you from medical appointments or from getting medications?Patient unable to vwqiyp7302/27/2025In the past 12 months, has lack of transportation kept you from meetings, work, or from getting things needed for daily living?Patient unable to apfvbs8202/27/[address] [facility] UtilitiesAnswerDate RecordedIn the past 12 months has the [employer], gas, oil, or water [email or web address] threatened to shut off services in your home?Patient unable to sefsyn8002/27/2025Housing StabilityAnswerDate RecordedWhat is your living situation today?Patient unable to plocty1902/27/2025EducationAnswerDate RecordedWhat is the highest level of school you have completed or the highest degree you have received?12th grade10/18/2022Sex and Gender InformationValueDate RecordedSex Assigned at BbenjWrya56/04/2018 4:20 PM CSTLegal YkqSmer87/08/2016 3:33 AM CSTGender IdentityNot on fileSexual OrientationNot on filedocumented as of this encounter Plan of Treatment DateTypeDepartmentCare Team (Latest Contact Info)Uovwdjcyhxc79/22/2025 11:15 AM CSTAppointment Department of Radiology in [place], [place] [address] [place] [address] Pablo Vo M.D. [address] [place] [phone] 07/22/2025 4:20 PM CSTOffice Visit Department of Oncology in [place], [place] [address] [place] [address] Pablo Vo M.D. [address] [place] [phone] 08/06/2025 9:44 AM CSTHospital Encounter Outpatient Procedure Center in [address] [address] Roland Benson D.O. [address] [place] [phone] 08/06/2025 9:44 AM DATA VISUALIZATION DEVELOPER - 08/06/2025 11:42 AM CSTSurgery Outpatient Procedure Center in [address] [address] Roland Benson D.O. [address] [place] [phone] ROBOTIC-ASSISTED MULTIPORT CHOLECYSTECTOMYNamePriorityAssociated Diagnoses Date/TimeROBOTIC-ASSISTED MULTIPORT CHOLECYSTECTOMY Cholecystitis Chronic 08/06/2025 9:44 AM CSTNameTypePriorityAssociated DiagnosesOrder SchedulePrimary Care nurse visit (clinic) - [facility] [place] [facility]; Medicare Annual Wellness Outpatient ReferralRoutineExpected: 06/24/2025, Expires: 11/13/2025documented as of this encounter Visit Diagnoses Not on filedocumented in this encounter Additional Health Concerns AssessmentNoted TimePHQ-9 Depression Total Score: 10107/26/2017 11:00 AM CDT documented as of this encounter Care Teams Team MemberRelationshipSpecialtyStart DateEnd Date Jeff Ryees M.D. [address] [place] [address] PCP - 03/14/24documented as of this encounter
--- OUTSIDE RECORDS SUMMARY | 2025-07-03 00:17 | XMS_ITS | Encounter Summary ---
Author Organization [facility] Address [address] [place] [address] Care Team Providers Care Packager Head Name Role Phone Jeff Reyes M.D. Primary Care Provider [phone] Encounter Details DateTypeDepartmentCare Team (Latest Contact Info)Stqtsvlazsg83/12/2025Clinical Communication Department of Radiology in [place], [place] [address] [place] [phone] Anuel Nunn M.D. [address] [place] [phone] Social History Tobacco UseTypesPacks/DayYears UsedDateSmoking Tobacco: DwtfvpHisbdfnsfx3Bzzk: 1978Passive Smoke Exposure: NeverAlcohol UseStandard Drinks/WeekCommentsNot Currently1 (1 standard drink = 0.6 oz pure alcohol)Humiliation, Afraid, Rape, and Kick questionnaireAnswerDate RecordedWithin the last year, have you been afraid of your partner or ex-partner?Patient unable to hzmulc3302/27/2025Within the last year, have you been humiliated or emotionally abused in other ways by your partner or ex-partner?Patient unable to tzarph2102/27/2025Within the last year, have you been kicked, hit, slapped, or otherwise physically hurt by your partner or ex-partner?Patient unable to lnihxw12/07/2025Within the last year, have you been raped or forced to have any kind of sexual activity by your part ner or ex-partner?Patient unable to bgnecm5402/27/2025Hunger Vital SignAnswerDate RecordedWithin the past 12 months, you worried that your food would run out before you got the money to buymore.Patient unable to pxepld6702/27/2025Within the past 12 months, the food you bought just didn't last and you didn't have money to get more.Patient unable to wquhmw0002/27/2025PRAPARE - TransportationAnswerDate RecordedIn the past 12 months, has lack of transportation kept you from medical appointments or from getting medications?Patient unable to joehhf3402/27/2025In the past 12 months, has lack of transportation kept you from meetings, work, or from getting things needed for daily living?Patient unable to snlwar7302/27/2025 [facility] UtilitiesAnswerDate RecordedIn the past 12 months has the [employer], gas, oil, or water [employer] threatened to shut off services in your home?Patient unable to nuihve6202/27/2025Housing StabilityAnswerDate RecordedWhat is your living situation today?Patient unable to zmnunu5502/27/2025EducationAnswerDate RecordedWhat is the highest level of school you have completed or the highest degree you have received?12th grade10/18/2022Sex and Gender InformationValueDate RecordedSex Assigned at SjrtoOzyu76/04/2018 4:20 PM CSTLegal JpfZnus5108/25/2016 3:33 AM CSTGender IdentityNot on fileSexual OrientationNot on filedocumented as of this encounter Miscellaneous Notes * Telephone Encounter - Mary Ortega R.N. - 06/04/2025 2:55 PM MACHINE STRAW HAT PRESSER Reviewing chart, tube exchange scheduled 06/05/25. INE STRAW HAT PRESSER * Telephone Encounter - Olinda Byers M.S.N., R.N. - 06/04/2025 10:51 AM MACHINE STRAW HAT PRESSER caregiver Bekah nurse api product manager called in with concerns of patients [...] scheduled until 07/07. She is wondering if heshould come in sooner, and reports they can get him here tomorrow if needed. Her cell phone number is [phone]. She said a message can be left with the date and time and she will align family to transport. INE STRAW HAT PRESSER documented in this encounter Plan of Treatment DateTypeDepartmentCare Team (Latest Contact Info)Npwobrmwrkl23/22/2025 11:15 AM CSTAppointment Department of Radiology in [place], [place] [address] [phone] Pablo Vo M.D. [address] [place] [phone] 07/22/2025 4:20 PM CSTOffice Visit Department of Oncology in [place], [place] [address] [place] [address] Pablo Vo M.D. [address] [place] [phone] 08/06/2025 9:44 AM CSTHospital Encounter Outpatient Procedure Center in [address] [address] Roland Benson D.O. [address] [place] [address] 08/06/2025 9:44 AM MACHINE STRAW HAT PRESSER - 08/06/2025 11:42 AM CSTSurbanner [facility] Out[facility] Procedure Center in [place], [place] [address] [place] [address] Roland Benson D.O. [address] [place] [address] ROBOTIC-ASSISTED MULTIPORT CHOLECYSTECTOMYNamePriorityAssociated Diagnoses Date/TimeROBOTIC-ASSISTED MULTIPORT CHOLECYSTECTOMY Cholecystitis Chronic 08/06/2025 9:44 AM CSTdocumented as of this encounter Visit Diagnoses Not on filedocumented in this encounter Additional Health Concerns AssessmentNoted TimePHQ-9 Depression Total Score: 11:00 AM CDT documented as of this encounter Care Teams Team MemberRelationshipSpecialtyStart DateEnd Date eJff Reyes M.D. [address] [place] [address] PCP - 03/14/24documented as of this encounter
--- OUTSIDE RECORDS SUMMARY | 2025-07-03 00:18 | XMS_ITS | Encounter Summary ---
Author Organization [facility] Address [address] [place] [address] Care Team Providers Care Hob Mill Operator Name Role Phone Jeff Reyes M.D. Primary Care Provider [phone] Reason for Visit * ReasonOnset DateCommentsPre-visit Abjfbs6106/03/2025 Encounter Details DateTypeDepartmentCare Team (Latest Contact Info)Qutwgglxfvb51/11/2025linical Communication Department of General Surgery in Home, [place] [address] [place] [address] Roland Benson D.O. [address] [place] [address] Pre-visit Intake Social History Tobacco UseTypesPacks/DayYears UsedDateSmoking Tobacco: EwznioJrqtqzkskz2Xzys: 1978Passive Smoke Exposure: NeverAlcohol UseStandard Drinks/WeekCommentsNot Currently1 (1 standard drink = 0.6 oz pure alcohol)Humiliation, Afraid, Rape, and Kick questionnaireAnswerDate RecordedWithin the last year, have you been afraid of your partner or ex-partner?Patient unable to fryyhb7802/27/2025Within the last year, have you been humiliated or emotionally abused in other ways by your partner or ex-partner?Patient unable to agekgx1202/27/2025Within the last year, have you been kicked, hit, slapped, or otherwise physically hurt by your partner or ex-partner?Patient unable to mrbioa6502/27/2025Within the last year, have you been raped or forced to have any kind of sexual activity by your part ner or ex-partner?Patient unable to sbwafr2402/27/2025Hunger Vital SignAnswerDate RecordedWithin the past 12 months, you worried that your food would run out before you got the money to buymore.Patient unable to zcsdbl9902/27/2025Within the past 12 months, the food you bought just didn't last and you didn't have money to get more.Patient unable to ckxcfa3402/27/2025PRAPARE - TransportationAnswerDate RecordedIn the past 12 months, has lack of transportation kept you from medical appointments or from getting medications?Patient unable to geetjk5202/27/2025In the past 12 months, has lack of transportation kept you from meetings, work, or from getting things needed for daily living?Patient unable to toheyf2202/27/2025 [facility] UtilitiesAnswerDate RecordedIn the past 12 months has the [employer], gas, oil, or water [employer] threatened to shut off services in your home?Patient unable to kerwlb9002/27/2025Housing StabilityAnswerDate RecordedWhat is your living situation today?Patient unable to noqgyp7802/27/2025EducationAnswerDate RecordedWhat is the highest level of school you have completed or the highest degree you have received?12th grade10/18/2022Sex and Gender InformationValueDate RecordedSex Assigned at KsjflYblb75/04/2018 4:20 PM CSTLegal FlsKald8108/25/2016 3:33 AM CSTGender IdentityNot on fileSexual OrientationNot on filedocumented as of this encounter Miscellaneous Notes * Telephone Encounter - Dena Salinas R.N., [facility] - 06/03/2025 9:37 AM CARDIO CLINICIAN Bekah from [facility] calls today for update on surgery date. Advised OR schedule for Valentín is not released and we will contact [...] the sleep medicine department for study at [facility] if they want to pursue that study within out system. Bekah would like a call at her number [phone] when surgery date is available. IO CLINICIAN documented in this encounter Plan of Treatment DateTypeDepartmentCare Team (Latest Contact Info)Ouwxtonkfub02/22/2025 11:15 AM CSTAppointment Department of Radiology in [place], [place] [address] [place] [phone] Pablo Vo M.D. [address] [place] [address] 07/22/2025 4:20 PM CSTOffice Visit Department of Oncology in [place], [place] [address] [address] Pablo Vo M.D. [address] [place] [address] 08/06/2025 9:44 AM CSTHospital Encounter Outpatient Procedure Center in Home, [place] [address] [place] [phone] Roland Benson D.O. [address] [place] [phone] 08/06/2025 9:44 AM CARDIO CLINICIAN - 08/06/2025 11:42 AM CSTSurgery Outpatient Procedure [facility] in [facility], [place] [address] [place] [address] Roland Benson D.O. [address] [place] [address] ROBOTIC-ASSISTED MULTIPORT CHOLECYSTECTOMYNamePriorityAssociated Diagnoses Date/TimeROBOTIC-ASSISTED MULTIPORT CHOLECYSTECTOMY Cholecystitis Chronic 08/06/2025 9:44 AM CSTdocumented as of this encounter Visit Diagnoses Not on filedocumented in this encounter Additional Health Concerns AssessmentNoted TimePHQ-9 Depression Total Score: 11:00 AM CDT documented as of this encounter Care Teams Team MemberRelationshipSpecialtyStart DateEnd Date Jeff Reyes M.D. [address] [place] [address] PCP - 03/14/24documented as of this encounter
--- OUTSIDE RECORDS SUMMARY | 2025-07-03 00:18 | XMS_ITS | Patient Health Record ---
Author Organization [facility] Address [address] [place] [address] Care Team Providers Care Debeaker Name Role Phone Rubén Paez MD Primary Care Provider Melody MuñizSondraurszula Unavailable [phone] Reason For Referral No Information Social History Tobacco Use: Social History Observation Description Date Details (start date - stop date) Former Smoker NA - NA Tobacco Use/Smoking Question Answer Notes Are you a former smoker Section Notes: FAMILY HISTORY: HISTORY OF FAMILY PSYCH: Problems Problem Type SNOMED Code ICD Code Onset Dates Problem Status W/U Status Risk Notes Problem Tinea unguium (738094048) Tinea unguium ( B35.1) ActiveconfirmedProblem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 (702992331)Type 2 diabetes mellitus with other circulatory complications (E11.59)ActiveconfirmedProblemNail dystrophy (64474677)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)ActiveconfirmedProblemPressure injury of right buttock stage III (disorder) (60045928661729)Pressure ulcer of right buttock, stage 3 (L89.313)ActiveconfirmedProblemPressure injury of right heel stage IV (disorder) (99903349139712)Pressure ulcer of right heel, stage 4 (L89.614)Activeconfirmed Plan Of Treatment No Information Insurance Providers Payer Name Payer Address Payer Phone Subscriber Number Group Number Insured Name Patient Relationship to Insured Coverage Start Date Coverage End Date [employer] [id number] ([facility] ent Programs ) [address] [address] [place], [place] [phone] [id number] Ren Ramirez Self - patient is the insured [address] [facility] [employer]/Medicare[address] [place] [id number], DavidSelf - patient is the insured 2012
--- OUTSIDE RECORDS SUMMARY | 2025-07-03 00:18 | XMS_ITS | Clinical Summary ---
Author Organization [facility] Address [address] [place] [address] Care Team Providers Care Multilith Operator Name Role Phone Jeff Reyes M.D. Primary Care Provider Source Comments Patient records contain information from all sites at [facility]. For routine questions regarding patient records, call [phone] during business hours, M-F 8:00 AM - 5:00 PM Central Time. Record requests for emergency care only can be directed to [phone] at any time.[facility] Allergies Active AllergyReactionsCriticalityNoted DateCommentsHaemophilus InfluenzaeOther (see comments)High02/19/2025VancomycinVancomycin Infusion Reaction,Other (see comments)Fyqhes0005/26/2018 Red Man Syndrome Red Man Syndrome ??Red Man Syndrome Medications * This document contains information received from the source organization and may not represent a complete record from that organization. MedicationSigDispense QuantityRefillsLast FilledStart DateEnd DateStatus sennosides-docusate sodium (SENOKOT-S) 8.6-50 mg per tablet Indications:Neurogenic BowelTake 1 tablet by mouth 2 (two) times a day as needed for constipation.07/04/2018Active latanoprost (XALATAN) 0.005 % ophthalmic solution Administer 1 drop into both eyes daily.09/19/2022ctive metoprolol succinate (TOPROL-XL) 100 mg 24 hr tablet Indications:Hypertension Essential PrimaryTake 1 tablet (100 mg total) by mouth daily. Do not crush or chew. 90 tablet 11/13/2022ctive pantoprazole (PROTONIX) 40 mg EC tablet Take 1 tablet (40 mg total) by mouth 2 (two) times a day before breakfast and dinner. 180 tablet ctive baclofen (LIORESAL) 10 mg tablet Indications:Multiple Sclerosis, Unspecified (HCC)Take 1 tablet (10 mg total) by mouth 2 (two) times a day. 60 tablet 12/08/2022ctive lisinopriL (PRINIVIL,ZESTRIL) 40 mg tablet Indications:Hypertension Essential PrimaryTake 1 tablet (40 mg total) by mouth daily. 90 tablet 12/08/2022ctive Additional Information Patient not taking.Reported on 05/28/2025 calcium carbonate (TUMS) 500 mg (200 mg calcium) chewable tablet Chew 2 tablets (400 mg of calcium total) 2 (two) times a day.12/22/2022ctive polyethylene glycol (MIRALAX) 17 gram powder packet Take 1 packet (17 g total) by mouth daily as needed for constipation. Dissolve each 17 g dose in 240 mLs (8 ounces) of beverage. 30 each ctive ondansetron (ZOFRAN) 4 mg tablet Take 4 mg by mouth every 6 (six) hours as needed for nausea or vomiting. 06/23/2023ctive bacitracin 500 unit/gram ointment Apply 1 Application topically 2 (two) times a day.08/10/2023ctive AntifungaL, clotrimazole, 1 % cream Apply 1 Application topically 2 (two) times a day.05/14/2024ctive furosemide (Lasix) 40 mg tablet Take 40 mg by mouth every morning.Active potassium chloride 10 mEq ER capsule Take 1 capsule (10 mEq total) by mouth 2 (two) times a day with meals.08/16/2024 Active Additional Information Patient not taking.Reported on 05/28/2025 acetaminophen (TylenoL) 500 mg tablet Take 2 tablets (1,000 mg total) by mouth 3 (three) times a day.5Active diclofenac sodium (Voltaren) 1 % gel Indications:Multiple Sclerosis, Unspecified (HCC)Apply 2 g topically 2 (two) times a day as needed (pain).08/16/2024tive cholecalciferol 25 mcg (1,000 unit) tablet Take 1 tablet (25 mcg total) by mouth daily.08/16/2024tive senna 8.6 mg tablet Take 17.2 mg by mouth every morning.08/23/2024tive atorvastatin (Lipitor) 80 mg tablet Take 1 tablet (80 mg total) by mouth at bedtime. 90 tablet tive apixaban (Eliquis) 5 mg tablet Take 5 mg by mouth 2 (two) times a day.12/17/2024tive cetirizine (ZyrTEC) 10 mg tablet Take 10 mg by mouth at bedtime.Active allopurinoL (Zyloprim) 100 mg tablet Take 100 mg by mouth daily.Active ferrous sulfate tablet Take 325 mg by mouth every other day.Active carbamide peroxide (Debrox) 6.5 % otic solution Administer 5 drops into each ear as needed.Active fluticasone propionate (Flonase) 50 mcg/actuation nasal spray Administer 1 spray into each nostril 2 (two) times a day.02/18/2025tive acetic acid 0.25 % irrigation (sterile) Apply to buttocks wounds topically as needed for wound careActive nitroglycerin (Nitrostat) 0.[address] 0.4 mg under the tongue every 5 (five) minutes as needed for chest pain. 02/05/2025tive BD PosiFlush Normal Saline 0.9 injection Use 10 mL via irrigation every day01/13/2025tive metFORMIN XR (Glucophage-XR) 500 mg 24 hr tablet Take 1,000 mg by mouth daily with evening meal.Active saliva substitution (Biotene Dry Mouth Oral Rinse) mouthwash Apply 1 Application to the mouth or throat as needed (dry mouth).Active oxyCODONE (Roxicodone) 5 mg immediate release tablet Indications:Acute Pain ExceptionTake 1 tablet (5 mg total) by mouth every 6 (six) hours as needed for severe pain or score 7-10 of 10 Indication: Acute Pain Exception. 12 tablet 02/27/2025tive predniSONE (Deltasone) 20 mg tablet 05/22/2025tive sertraline (Zoloft) 25 mg tablet Take 25 mg by mouth daily.03/28/2025tive Mucus Relief ER 600 mg 12 hr tablet Take 600 mg by mouth 2 (two) times a day.5Active Active Problems ProblemNoted DateDiagnosed DateCholecystitis Xgupzep4103/13/2025Pressure Injury (Ulcer) Of Sacral Region Stage Encephalopathy Uberjtnid46/02/2025 Acute Embolism And Thrombosis Of Other Specified Deep Vein Of Lower Extremity Tjjkwoudc61/22/2025ody Mass Index 34.0 To 34.9 Adult11/12/2024Embolus Pulmonary 08/08/2024Open Reduction Internal Fixation Hip Status Post12/22/2022Osteoporosis Hip With Pathological Fracture Initial Right12/15/2022Fracture Femoral Condyle Closed Initial Right12/14/2022Fracture Hip Closed Initial Right12/14/2022ody Mass Index 33.0 To 33.9 Adult11/08/2022cute Cystitis With Dkgcddkun87/18/2023 Weakness Aoumbni8911/07/2022bdominal Pain08/07/20216321Jajubzvvgax36/15/2022 Zreviziculpw96/15/0224Obdhwf33/15/2022OVID-19 Zrpttxsvi15/15/2022Lymphedema 10/09/2018 Overview (10/19/2022): Last Assessment & Plan: Edema benefits significantly from routine lymphedema wraps and cares. Given history of cellulitis with sepsis, needs close monitoring of any foot wounds. Currently de-roofed bullae on the left toe has no sign of infection, normal serosanguinous drainage present and he is monitoring closely and willlet us know if any symptoms of infection start, for which we would start an antibiotic. Plan to follow-up in 1 week to ensure appropriate wound healing; if not closing up as expected, patient would benefit from wound cares until fully closes to avoid infection. Paraparesis Ppqhepg1908/02/20182210Symebxxidh95/10/2019 Overview (08/22/2023): Last Assessment & Plan: Continue baclofen which has been helpful. Apnea Sleep Wczvrmfwknq97/27/2018Atherosclerotic Heart Disease Of [place] Coronary Artery Without Angina Liqikkst50/07/2018 Overview (10/19/2022): History of [place] Assessment & Plan (07/04/2018 2:57 PM SCIENCE MANAGER): -Continue atorvastatin 40 mg daily -Continue metoprolol succinate 100 mg daily -Continue nifedipine 90 mg extended release daily -Continue lisinopril 40 mg daily -Continue Lasix 40 mg daily -Continue coenzyme Q10 200 mg daily Lxxlvjqwbqivydo83/05/7958Hgtfviitavg12/03/2018Neurogenic Bowel05/26/2018 Hypertension Essential Eeqfnpp0905/28/2015 Overview (10/19/2022): Hypertension (HTN) Essential Benign Last Assessment & Plan: Patient is back on lisinopril, nifedipine and metoprolol with good control on this regimen. Neuromuscular Dysfunction Of Bladder Wlnoanpriwb91/27/2004 Overview (10/19/2022): Last Assessment & Plan: Self-caths [...] cellulitis. Assessment & Plan (07/04/2018 2:56 PM SCIENCE MANAGER): Continue I&O catheterization as needed Multiple Sclerosis, Dquzfbtauwc74/11/2003 Assessment & Plan (07/04/2018 3:32 PM SCIENCE MANAGER): -Continue to follow with Neurology for further recommendations Resolved Problems ProblemNoted DateDiagnosed DateResolved DateSprain Ankle Initial Right11/08/2022 11/09/2022Obesity Xllesfgkuvb62Urinary Tract Infection Site Not Mmibntqxc02 Overview (07/04/2018): Completed ciprofloxacin 500 mg b.i.d. for an antibiotic course of 14 days (last dose on 06/08/2018) Assessment & Plan (07/04/2018 3:31 PM SCIENCE MANAGER): -Patient denies any urinary symptoms today on exam. -Continue care cranberry 450 mg daily Failure Renal Acute (Acute Kidney Injury)Non-ST Elevation Myocardial Jchxzoxewu14 Assessment & Plan (07/04/2018 10:14 AM SCIENCE MANAGER): 1. ??Continue aspirin 81 mg daily 2. ??Continue atorvastatin 40 mg daily 3. ??Continue furosemide 40 mg daily 4. ??Continue lisinopril 40 mg daily 5. ??Increase metoprolol succinate to 100 mg daily due to benefit in CAD 6. ??Continue nifedipine 90 mg daily 7. ??Discontinue hydralazine 10 mg t.i.d. due to borderline hypotension and increase in metoprolol 8. ??Discontinue fish oil, as unclear evidence for benefit and acceptable lipid panel (LDL 65 on 05/26/18) Acidosis Mwqwgw21Pressure Injury (Ulcer) Of Right Buttock Stage 311/SepsisWeakness Nydszwv9805/25/2018 10/23/2019Pressure Injury (Ulcer) Of Right Heel Stage 409 Pressure Injury (Ulcer) Of Sacral Region Unspecified Stage03/24/ Ulcer Foot12/26/ Encounters DateTypeDepartmentCare KmcxJhkfyzsxrca49/25/2025 8:51 AM SCIENCE MANAGER - 06/17/2025 2:21 PM CSTEmergency [facility] [address] [place] [address] Shayna Conteh P.A.-C. Cholecystitis (Primary Dx); Encounter For Change Or Removal Of Drains Discharge Disposition: Home or Self Care06/05/2025 7:09 AM SCIENCE MANAGER - 06/05/2025 8:59 AM CSTHospital Encounter Department of Radiology in [address] [phone] Anuel Nunn M.D. Suckow, Kasey C, APRN, C.N.P., M.S.N. Cholecystitis Discharge Disposition: Home or Self Care5Clinical Communication Department of Radiology in [address] [address] Anuel Nunn M.D. 5Clinical Communication Department of General Surgery in [address] [phone] Roland Benson, D.O. Pre-visit Bhoveu2605/28/2025 11:30 AM CSTNurse Only Department of General Surgery in [address] [address] Dena Salinas R.N., [facility] Patient Education (Lap jazmín)05/28/2025 11:30 AM CSTComprehensive Visit Department of General Surgery [address] [address] Roland Benson, D.O. Cholecystitis Chronic (Primary Dx)05/27/2025Orders Only [facility] PCP [facility] Jeff Sullivan M.D. from Last 3 Months Immunizations ImmunizationAdministration DatesNext DueHZV (ZOSTAVAX)08/21/2009Influenza TIV (IM)05/08/2003,05/23/2002Influenza high dose QV(65 years or older) (PF) 05/16/2023Influenza, Seasonal, Bllqqiaqjj94/16/2003,05/23/20024002JDB2891 VVGI8123,08/03/2011RZV (SHINGRIX)03/09/2018,01/04/20184859LHUL-VTG-5 (COVID- 19) - PFIZER BIVALENT TS(Discontinued)(12 YEARS OR OLDER)05/17/2022Td (Adult), trtzcukx26/24/8454Iykr97/16/2019,08/21/2009 Family History Medical HistoryRelationNameCommentsCancerFatherfatherCoronary artery disease FatherfatherGlaucomaFatherfatherHyperlipidemia (high cholesterol)Fatherfather HypertensionFatherfatherSleep apneaFatherfatherDeep vein thrombosisNeg Hx Miscarriages (2 or more)/ stillbirthNeg HxPulmonary embolismNeg HxRelationName StatusCommentsFatherfatherDeceasedMotherDeceased Social History Tobacco UseTypesPacks/DayYears UsedDateSmoking Tobacco: KxrdzkTutrcfvnpi8Poms: 1977Passive Smoke Exposure: Never Tobacco Cessation:Counseling Given: Yes Alcohol UseStandard Drinks/WeekCommentsNot Currently1 (1 standard drink = 0.6 oz pure alcohol)Humiliation, Afraid, Rape, and Kick questionnaireAnswerDate RecordedWithin the last year, have you been afraid of your partner or ex-partner?Patient unable to efsuvi9102/27/2025Within the last year, have you been humiliated or emotionally abused in other ways by your partner or ex-partner? Patient unable to redqby8602/27/2025Within the last year, have you been kicked, hit, slapped, or otherwise physically hurt by your partner or ex-partner?Patient unable to edcpay3502/27/2025Within the last year, have you been raped or forced to have any kind of sexual activity by your partner or ex-partner?Patient unable to ivfjel5502/27/2025Hunger Vital SignAnswerDate RecordedWithin the past 12 months, you worried that your food would run out before you got the money to buymore. Patient unable to scanzp1102/27/2025Within the past 12 months, the food you bought just didn't last and you didn't have money to get more.Patient unable to answer 02/27/2025PRAPARE - TransportationAnswerDate RecordedIn the past 12 months, has lack of transportation kept you from medical appointments or from getting medications?Patient unable to ukyukn0402/27/2025In the past 12 months, has lack of transportation kept you from meetings, work, or from getting things needed for daily living?Patient unable to eddgyt5802/27/2025HC UtilitiesAnswerDate Recorded In the past 12 months has the electric, gas, oil, or water company threatened to shut off services in your home?Patient unable to pxmcup0202/27/2025Housing StabilityAnswerDate RecordedWhat is your living situation today?Patient unable to wsumio4502/27/2025EducationAnswerDate RecordedWhat is the highest level of school you have completed or the highest degree you have received?12th grade 10/18/2022Sex and Gender InformationValueDate RecordedSex Assigned at BirthMale 06/26/2018 4:20 PM CSTLegal KvjMpmo5008/25/2016 3:33 AM CSTGender IdentityNot on fileSexual OrientationNot on file Last Filed Vital Signs Vital SignReadingTime TakenCommentsBlood Csuuxiqn799/6106/17/2025 2:00 PM SCIENCE MANAGER Zqhta610706/17/2025 2:00 PM EDNBaryvulvowb23.6 ??C (97.9 ??F)06/17/2025 8:56 AM CSTRespiratory Mgcr0289 1:00 PM CSTOxygen Arddrvcgle14%06/17/2025 2:00 PM CSTInhaled Oxygen Concentration--Gnyjgp200 kg (232 lb 12.9 oz)06/17/2025 8:58 AM QHEGewvwv623.9 cm (6' 0.01)05/28/2025 11:22 AM CSTBody Mass Index31.57 05/28/2025 11:22 AM SCIENCE MANAGER Plan of Treatment DateTypeDepartmentCare Team (Latest Contact Info)Ywrphkzuxnn64/22/2025 11:15 AM CSTAppointment Department of Radiology in [place], [place] [address] [place] [address] Pablo Vo M.D. [address] [place] [phone] 07/22/2025 4:20 PM CSTOffice Visit Department of Oncology in [place], [place] [address] [place] [address] Pablo Vo M.D. [address] [place] [address] 08/06/2025 9:44 AM CSTHospital Encounter Outpatient Procedure Center in [address] [phone] Roland Benson D.O. [address] [place] [phone] 08/06/2025 9:44 AM SCIENCE MANAGER - 08/06/2025 11:42 AM CSTSurgery Outpatient Procedure Center in [address] [address] Roland Benson D.OAmparo [address] [place] [phone] ROBOTIC-ASSISTED MULTIPORT CHOLECYSTECTOMYNamePriorityAssociated Diagnoses Date/TimeROBOTIC-ASSISTED MULTIPORT CHOLECYSTECTOMY Cholecystitis Chronic 08/06/2025 9:44 AM CSTHealth MaintenanceDue DateLast DoneCommentsCT Colonography 1950Iimgbbnex03/13/9343Fabrwhzecel1950Colorectal Cancer Screening 1950FIT1950Hepatitis C Gldfctajl1950Hepatitis A Vaccines (1 of 2 - Risk 2-dose series)1969Hepatitis B Vaccines (1 of 3 - Risk 3-dose series)2010Visit: Chronic Disease, age 18+/epression Screening (Annual PHQ-2)07/24/2024Office Visit for Blood Pressure Check / Re-check/Visit: Medicare Annual Hjofddtw84/ COVID-19 Vaccine ( season), 12/04/2024, 05/17/2024, Additional history existsCreatinine Level (Kidney Function Test) , 06/10/2025, 06/03/2025, Additional history existsPotassium Level, 06/10/2025, 06/03/2025, Additional history exists Sodium Level, 06/10/2025, 06/03/2025, Additional history existsFasting Glucose for Diabetes Gwlsphkwb03, 06/10/2025, 06/03/2025, Additional history existsDTaP,Tdap,and Td Vaccines (3 - Td or Tdap) , 08/21/2009, 08/16/1999Lipid (Cholesterol) Screening , 10/25/2021, 04/06/2020, Additional history existsZoster RovnapscPxhxnphwu21/17/2018, 01/04/2018, 08/21/2009RSV vaccine - (32-36 weeks) or 50+ gjgjpShhljxqsx10/25/2024bdominal Aortic Aneurysm (AAA) Screen Usrxcfwxuuoq21/03/2025, 09/15/2024, 09/02/2024, Additional history exists Influenza VggovguXwoypjqnp93/24/2025, 05/17/2024, 05/16/2023, Additional history existsPneumococcal vaccine (50+ years)Yfnrjonyw33/24/2025, 03/21/2019, 04/21/2015, Additional history existsFall Risk Screen (Annual)Completed 06/05/2025IPV VaccinesAged OutNo longer eligible based on patient's age to complete this topic Goals GoalPatient Goal TypeAssociated ProblemsRecent ProgressPatient-Stated?Author Autogenerated Goal Care PlanAutogenerated ProblemNoLucia Kennedy [employer] ImplantedTypeAreaManufacturerDevice IdentifierShelf Expiration DateModel / Serial / LotScrw St 24pthrd 8.0x105 - [id number] Implanted:Qty: 1 on 12/15/2022 by Jana Don M.D. at [facility] e.g. pins/screws/rodsRight: [employer] [id number] / / Scrw Vthrd Fast 7.0x105 - [id number] Implanted:Qty: 2 on 12/15/2022 by Jana Don M.D. at [facility] e.g. pins/screws/rodsRight: [employer] [id number] / / Washr Flt 1.5x13 - [id number] Implanted:Qty: 4 on 12/15/2022 by Jana Don M.D. at [facility] e.g. pins/screws/rodsRight: [employer] [id number] / / Procedures Procedure NamePriorityDate/TimeAssociated DiagnosisCommentsIR PERCUTANEOUS CHOLECYSTOSTOMY TUBE EXCHANGERAD - Semiurgent (Fast; most ED patients; some inpatients)06/17/2025 10:04 AM SCIENCE MANAGER IR PERCUTANEOUS CHOLECYSTOSTOMY TUBE EXCHANGERAD - Routine (most inpatients and all outpatients)06/05/2025 8:33 AM SCIENCE MANAGER Cholecystitis GLUCOSE POCT, WTpwcvvo99/07/2025 6:54 AM CDT COMPREHENSIVE METABOLIC PANEL, S/EHxehjps41/07/2025 6:[address] ABDOMEN PELVIS WITH IV CONTRASTRAD - Semiurgent (Fast; most ED patients; some inpatients)01/23/2025 7:35 PM CDT LIPID PANEL, IEnazrra34/15/2025 9:32 AM CDT Cholecystitis Preoperative Examination Cardiovascular Hyperlipidemia On Treatment Atherosclerotic Heart Disease Of [place] Coronary Artery Without Angina Pectoris from Last 3 Months or Most Recently Relevant to Health Maintenance Results * IR Percutaneous Cholecystostomy Tube Exchange (06/17/2025 10:04 AM SCIENCE MANAGER) Only the most recent of2 resultswithin the time period is included. Anatomical RegionLateralityModalityAbdomen, Vascular Interventional RST LOS, Vascular Interventional ARZ LOS, Vascular Interventional FLA LOSN/AX-Ray AngiographySpecimen (Source)Anatomical Location / LateralityCollection Method / VolumeCollection TimeReceived Time Impressions 06/17/2025 10:20 AM SCIENCE MANAGER Expedited exchange of the 12 Eritrean cholecystostomy catheter. Narrative 06/17/2025 10:20 AM SCIENCE MANAGER EXAM: IR PERCUTANEOUS CHOLECYSTOSTOMY TUBE EXCHANGE INDICATION: [...] Patient education provided by a care steam press tender. Patient was ready to learn with no apparent learning barriers were identified. Post-procedure care explained; patient expressed understanding of the content. PROCEDURE DETAILS: Sedation: None. Local anesthesia was achieved with lidocaine. Sedation time: NA Estimated Blood Loss: Less than 10 mL. TECHNIQUE: Imaging guidance for catheter exchange: Fluoroscopy with permanent image storage Access side: Right lateral abdomen Catheter: 12 Eritrean Ruff-Franco catheter Technique: The indwelling 10.2 Eritrean catheter was completely dislodged. ??A guidewire and KUMPE catheter were inserted via existing tract and access gained into gallbladder, confirmed with contrast injection. ??The catheter was then exchanged over the wire for a new 12 E[place]an Ruff-Franco catheter. ??Contrast was injected confirming the [...] catheter exchange. Procedure Note Rosenda Pedroza APRN, CAmparoNAndre, M.S.N. - 06/17/2025 EXAM: IR PERCUTANEOUS CHOLECYSTOSTOMY [...] Access side: Right lateral abdomen Catheter: 12 Eritrean Ruff-Franco catheter Technique: The indwelling 10.2 Eritrean catheter was completely dislodged.A guidewire and KUMPE catheter were inserted via existing tract and accessgained into gallbladder, confirmed with contrast injection. The catheterwas then exchanged over the wire for a new 12 [place]an Ruff-Muellercatheter. Contrast was injected confirming the location [...] exchange. IMPRESSION: Expedited exchange of the 12 Eritrean cholecystostomy catheter. Authorizing ProviderResult TypeResult StatusShayna Conteh P.A.-C.IM IR PROCEDURESFinal Result * CT Abdomen Pelvis with IV Contrast (01/23/2025 7:35 PM CDT)Anatomical Region LateralityModalityAbdomen, Pelvis, Abdominal RST LOS, Abdominal ARZ LOS, Abdominal FLA LOSN/AComputed Tomography, Computed TomographySpecimen (Source) Anatomical Location / LateralityCollection Method / VolumeCollection Time Received Time01/23/2025 7:29 PM CDT Impressions 01/23/2025 7:59 PM CDT 1. Similar positioning of the cholecystostomy tube in a decompressed gallbladder. Slightly improved but unresolved associated inflammation. 2. ??Presumed left decubitus ulcer with findings concerning for osteomyelitis of the ischium. Recommend further evaluation with MRI. 3. ??Possible chronic cystitis. Narrative 01/23/2025 7:59 PM CDT EXAM: CT ABDOMEN PELVIS WITH IV CONTRAST COMPARISON: ??CT 09/15/2024 FINDINGS: ??Since 09/15/2024, continued near complete decompression of the [...] evaluation with MRI. 3. Possible chronic cystitis. Authorizing ProviderResult TypeResult StatusAndlorena Walters M.D.IMG CT PROCEDURES Final Result * (ABNORMAL) Lipid Panel (11/05/2024 9:32 AM CDT)ComponentValueRef RangeTest MethodAnalysis TimePerformed AtPathologist EkblhxdqoNrpeqxeyjzjbv440(H)mg/dL 11/05/2024 10:02 AM CDTOWATComment: ----REFERENCE VALUE---- Normal: <150 mg/dL Borderline High: 150-199 mg/dL High: 200-499 mg/dL Very High: > or =500 mg/dL Cholesterol, Krdzt834ot/dL11/05/2024 10:02 AM CDTOWATComment: ----REFERENCE VALUE---- Desirable: < 200 mg/dL Borderline High: 200 - 239 mg/dL High: > or = 240 mg/dL Cholesterol, LDL, Uyytrclxqv47ru/dL11/05/2024 10:02 AM CDTOWATComment: ----REFERENCE VALUE---- Desirable: <100 mg/dL Above Desirable: 100-129 mg/dL Borderline High: 130-159 mg/dL High: 160-189 mg/dL Very High: >=190 mg/dL ----ADDITIONAL INFORMATION---- LDL cholesterol calculated using the Sofia/NIH equation. Cholesterol, HDL36(L)>=40 mg/dL11/05/2024 10:02 AM CDTOWATCholesterol, Non-HDL, Lyqqorsoyi349lj/dL11/05/2024 10:02 AM CDTOWATComment: ----REFERENCE VALUE---- Desirable: <130 mg/dL Above Desirable: 130-159 mg/dL Borderline High: 160-189 mg/dL High: 190-219 mg/dL Very High: > or =220 mg/dL Fasting (8 HR or more)Yes11/05/2024 9:32 AM CDTOWATSpecimen (Source)Anatomical Location / LateralityCollection Method / VolumeCollection TimeReceived TimeBlood (Blood, Venous)11/05/2024 9:32 AM CDT11/05/2024 9:34 AM CDT Narrative Authorizing ProviderResult TypeResult StatusBepita Li M.D.LAB BLOOD ADD-ONFinal ResultPerforming OrganizationAddressCity/State/ZIP CodePhone Number [facility] [address], [place] [address], [facility] in [place] [address] [place] [address] from Last 3 Months or Most Recently Relevant to Health Maintenance Additional Health Concerns Active ProblemsNoted DateDiagnosed DateAutogenerated Vgdtbsn9206/13/2025 Insurance Advance Directives For more information, please contact: [phone] TypeDate RecordedPatient RepresentativeExplanationAdvance Directive08/08/2024 6:58 AMPOLST/MOLSTAdvance Directive09/28/2017 12:41 PMPOLST/MOLSTAdvance Directives03/16/2017 12:00 AMLegacy document. See document viewer. * Full Code (Latest Code Status on File) Date ActivatedDate InactivatedComments02/22/2025 1:43 AM02/27/2025 2:26 PMQuestion AnswerCommentsFull Code:* Not Discussed Due to:* Patient does not have the capacity * DNR/DNI Date ActivatedDate InactivatedComments08/08/2024 4:01 AM08/16/2024 8:00 PMQuestion AnswerCommentsDNR/DNI (Do Not Resuscitate/Do Not Intubate):* Discussed-Patient * DNR/DNI Date ActivatedDate InactivatedComments12/22/2022 3:47 PM01/25/2023 6:15 PM * Full Code Date ActivatedDate InactivatedComments12/15/2022 11:01 AM12/22/2022 3:12 PMQuestion AnswerCommentsFull Code:* Discussed * DNR/DNI Date ActivatedDate InactivatedComments12/14/2022 5:41 PM12/15/2022 11:01 AM Care Teams Team MemberRelationshipSpecialtyStart DateEnd Date Jeff Reyes M.D. [address] [place] [phone] [facility]03/14/24
--- OUTSIDE RECORDS SUMMARY | 2025-07-03 00:18 | XMS_ITS | Clinical Summary ---
Author Organization [facility] [place] [address] Care Team Providers Care Strategic Accounts Manager Name Role Phone Bijan Crawford Primary Care Provider [phone] Rl Evans MD Unavailable [phone] Allergies Active AllergyReactionsCriticalityNoted DateCommentsHaemophilus InfluenzaeOther (See Comments)High02/19/2025VancomycinOther (See Comments)Sogxyi6905/26/2018 Red Man Syndrome Red Man Syndrome Medications MedicationSigDispense QuantityRefillsLast FilledStart DateEnd DateStatus acetic acid 0.25 % irrigation Irrigate with as directed.Active allopurinol (ZYLOPRIM) 100 MG tablet Take 100 mg by mouth daily.Active atorvastatin (LIPITOR) 80 MG tablet Take 80 mg by mouth at bedtime.5Active bacitracin 500 UNIT/GM external ointment Apply topically 2 times daily. on affected areasActive baclofen (LIORESAL) 10 MG tablet Take 10 mg by mouth.Active TUMS 500 MG chewable tablet Take 1,000 mg by mouth.Active DEBROX 6.5 % otic solution Place 5 drops in ear(s).Active VITAMIN D-[address] 25 MCG (1000 UT) tablet Take 25 mcg by mouth daily.5Active clotrimazole (LOTRIMIN) 1 % external cream Apply topically.4Active diclofenac (VOLTAREN) 1 % topical gel Apply 2 g topically.5Active ferrous sulfate (FEROSUL) 325 (65 Fe) MG tablet Take 325 mg by mouth every 48 hours.Active fluticasone (FLONASE) 50 MCG/ACT nasal spray 5Active furosemide (LASIX) 40 MG tablet Take 40 mg by mouth.Active latanoprost (XALATAN) 0.005 % ophthalmic solution Place 1 drop into both eyes at bedtime.Active lisinopril (ZESTRIL) 40 MG tablet Take 40 mg by mouth daily.Active metFORMIN (GLUCOPHAGE XR) 500 MG 24 hr tablet Take 1,000 mg by mouth.Active metoprolol succinate ER (TOPROL XL) 100 MG 24 hr tablet Take 100 mg by mouth daily.Active oxyCODONE (ROXICODONE) 5 MG tablet Take 5 mg by mouth every 6 hours as needed for pain.5Active pantoprazole (PROTONIX) 40 MG EC tablet Take 40 mg by mouth.Active polyethylene glycol (MIRALAX) 17 g packet Take 1 packet by mouth.Active SENNA-TIME 8.6 MG tablet Take 8.6 mg by mouth.5Active apixaban ANTICOAGULANT (ELIQUIS) 5 MG tablet Take 5 mg by mouth.5Active acetaminophen (TYLENOL) 500 MG tablet Take 1,000 mg by mouth.5Active Encounters DateTypeDepartmentCare ScbjCukzawdbmrt30/04/2025Telephone [facility] [address] [phone] Rl Evans MD 04/21/2025Telephone [facility] [address] [phone] Rl Evans MD from Last 3 Months Social History Tobacco UseTypesPacks/DayYears UsedDateSmoking Tobacco: FormerCigarettesQuit: 07/24/1971Smokeless Tobacco: Never Tobacco Cessation:Counseling Given: Not Answered Sex and Gender InformationValueDate RecordedSex Assigned at BirthNot on file Legal GmuFrjs8208/07/2024 2:17 PM CSTGender IdentityNot on fileSexual Orientation Not on file Last Filed Vital Signs Vital SignReadingTime TakenCommentsBlood Rkwobdvt15/6107/ 2:44 PM CDT Osdhn0931 2:44 PM CDTTemperature--Respiratory Rate--Oxygen Saturation-- Inhaled Oxygen Concentration--Pyheav844.4 kg (250 lb)02/19/2025 2:44 PM CDT approx. per ptHeight--Body Mass Index-- Plan of Treatment Health MaintenanceDue DateLast DoneCommentsANNUAL REVIEW OF QLGUFT14 [address] VTLCJGZKTPYH1950DIABETES MQSBYDLBY73/13/1761MWE40 1950FLEX SIG 1950 4538LJMHG1950URIC ACID1950sDNA (Cologuard)1950 ZSJADFNCUMK57/13/1960COLORECTAL CANCER GPGJTHMZX66/13/1960HEPATITIS C SCREENING 01/04/1968FALL RISK DTZAWEISMQ08/13/2015MEDICARE ANNUAL WELLNESS VISIT2015 PHQ-2 (once per calendar year)5COVID-19 VACCINE ( season) 505/, 05/17/2024, 11/21/2023, Additional history existsINFLUENZA VACCINE (#1), 05/16/2023, 05/08/2003, Additional history existsDTAP/TDAP/TD VACCINE (3 - Td or Tdap), 08/21/2009, 08/16/1999ADVANCE CARE HQUKWGSZ07ZOSTER VACCINECompleted 03/09/2018, 01/04/2018, 08/21/2009PNEUMOCOCCAL VACCINE 50+ YEARSCompleted 03/21/2019, 04/21/2015, 08/03/2011RSV GKTDZEPChbakifjd44/25/2024AORTIC ANEURYSM SCREENING (SYSTEM ASSIGNED)Vaxbxyxli72/03/2025, 09/15/2024, 09/02/2024, Additional history existsHPV VACCINE (No Doses Required)CompletedMENINGITIS VACCINEAged OutNo longer eligible based on patient's age to complete this topic Insurance Advance Directives For more information, please contact: [phone] TypeDate RecordedPatient RepresentativeExplanationAdvance Directives and Living Will02/25/2025POLST 01/26/2023 Care Teams Team MemberRelationshipSpecialtyStart DateEnd Date Bijan Crawford [address] [place] [address] PCP - GeneralFamily Medicine01/20/25 Rl Evans MD [address] [place] [address], [facility] [address] [place], [place] [id number] Assigned Infectious Disease Provider03/15/25
== END 2025-07-02 12:35 | disposition home or self-care (01) ==
LOC: NPINS 12:34
PROVIDERS: PCP Family Medicine; Visit Provider Nurse Practitioner Gerontology
DX: R53.1 Weakness (principal); R41.0 Disorientation, unspecified; N31.9 Neuromuscular dysfunction of bladder, unspecified
CPT/HCPCS: 81001; 81003; 87086; 87186

== ENCOUNTER 2025-07-11 13:00 | Outpatient (RCR) | payer MEDICARE, SELFPAY | END 2025-07-23 23:59 | disposition home or self-care (01) | LOC: WOUND 13:00 | PROVIDERS: PCP Family Medicine; Visit Provider Nurse Practitioner Family | DX: M86.68 Other chronic osteomyelitis, other site (principal); L89.324 Pressure ulcer of left buttock, stage 4; L89.152 Pressure ulcer of sacral region, stage 2; G35.D Multiple sclerosis, unspecified; I25.10 Atherosclerotic heart disease of native coronary artery without angina pectoris; I10 Essential (primary) hypertension; G82.20 Paraplegia, unspecified; E11.9 Type 2 diabetes mellitus without complications; Z79.01 Long term (current) use of anticoagulants; Z79.84 Long term (current) use of oral hypoglycemic drugs; Z99.3 Dependence on wheelchair | CPT/HCPCS: 82962; G0277 ==